=== PATIENT | female | born 1960 | race Caucasian/White ===

== ENCOUNTER → 2016-05-12 | Outpatient (CLI) | payer MEDICARE, MEDICAID ==
[~2016-05-12] MED LIST: ACHYD1T PO; AMLO10TA PO; BREO ELLIPTA INH; BREO IH; CIPR-226 PO; EST30C VG; HYDR50CA3 PO; LEVO150T6 PO; LOXA25CA2 PO; LVT.15T PO; MPR22TI NS; MULT-874 PO; NAPR-689 PO; PRAV20TA PO; SERT100T8 PO; SPIR50TA27 PO; SRTR100T PO; TR5C15 TOP; TRAZ150T42 PO; TRIA5PAS10 TOP; ZIPR80CA9 PO; ZPR80C PO
--- NOTE | 2016-05-12 12:41 | Diagnostic Imaging Report ---
PA and lateral views of the chest. INDICATION: COPD. Obesity. Evaluation prior to foot surgery. No prior similar studies are available for comparison. FINDINGS: There is moderate cardiomegaly with no active congestion or edema. Flattening of the diaphragms is suggestive of pulmonary hyperinflation. There are slightly prominent increased densities around the cardiac borders anteriorly probably related to pericardial fat pad with no definite pulmonary consolidation. No significant effusion. No pneumothorax. IMPRESSION: Hyperinflated clear lungs. Cardiomegaly. Dictated by: Dictated on workstation # [id number]
== END ==
LOC: RAD 11:37
PROVIDERS: ATTEND Internal Medicine Critical Care Medicine
DX: J44.9 Chronic obstructive pulmonary disease, unspecified (principal); G47.33 Obstructive sleep apnea (adult) (pediatric); E66.9 Obesity, unspecified; R53.83 Other fatigue
CPT/HCPCS: 71020

== ENCOUNTER → 2016-05-20 | Outpatient (CLI) | payer MEDICARE, MEDICAID | LOC: RT 13:40 | PROVIDERS: ATTEND Internal Medicine Critical Care Medicine | DX: J44.9 Chronic obstructive pulmonary disease, unspecified (principal); G47.33 Obstructive sleep apnea (adult) (pediatric); E66.9 Obesity, unspecified; R53.83 Other fatigue ==

== ENCOUNTER → 2016-05-25 | Outpatient (CLI) | payer MEDICARE, MEDICAID ==
--- NOTE | 2016-05-27 09:13 | ECHOCARDIOGRAPHY REPORT ---
PROCEDURE PHYSICIAN: ANN-MARIE DIMAS DATE OF PROCEDURE: 05/25/2016 TWO DIMENSIONAL ECHOCARDIOGRAM REPORT PRIMARY PHYSICIAN: OTHER PHYSICIAN: REFERRING PHYSICIAN: Glen Sosa ORDERING PHYSICIAN: INDICATION FOR THE PROCEDURE: Chest pain MEASUREMENTS DERIVED VALUES LV DIAMETER (LAX) NORMALS NORMALS Diastolic 4.6 (3.6-5.2) Eject. Fract. 60% (60%+/-6%) Systolic (2.3-3.9) Diastolic Vol. % Shortening (0.22-0.42) Systolic Vol. Aortic Root IVS THICKNESS Diastolic 1.3 (0.6-1.1) LVPW THICKNESS Diastolic 1.3 (0.6-1.1) LA DIAMETER Systolic 3.6 (2.1-3.7) FINDINGS: 1. Technical quality is good. 2. The left ventricle is normal in size with moderate left ventricular hypertrophy noted diffusely. Systolic function appeared to be normal. Estimated ejection fraction 60%. Diastolic dysfunction is suggested by Doppler. 3. The left atrium is normal in size. No clot or thrombus were seen within the left atrium. 4. The right atrium and right ventricle are normal in size with mild right ventricular hypertrophy. No clot or thrombus were seen in the right heart chambers. 5. Mitral valve is normal in morphology with mild mitral regurgitation noted by color Doppler flow. No mitral valve prolapse. No mitral valve stenosis. 6. Aortic valve is trileaflet with normal opening and closing pattern. No significant aortic stenosis or regurgitation was seen. 7. Tricuspid valve is normal in morphology with mild tricuspid regurgitation noted by color Doppler flow. Doppler across tricuspid valve estimated pulmonary artery pressure 21+ right atrial pressure. 8. Pulmonic valve is functioning normally. 9. Small pericardial effusion of no hemodynamic significance was noted. CONCLUSION: 1. Normal left ventricular size and systolic function. Moderate left ventricular hypertrophy. Estimated ejection fraction 60%. 2. Diastolic dysfunction is suggested by Doppler. 3. Mild mitral and tricuspid regurgitation. 4. Estimated pulmonary artery pressure of 30 mmHg. 5. Small pericardial effusion of no hemodynamic significance was noted. Job ID: [id number] Dictated Date: 05/26/2016 17:12:36 Foreign Language Stenographer Date: 05/27/2016 09:08:06 / tobias
== END ==
LOC: CARD 07:30
PROVIDERS: ATTEND Internal Medicine Cardiovascular Disease
DX: I10 Essential (primary) hypertension (principal); G47.33 Obstructive sleep apnea (adult) (pediatric); E66.9 Obesity, unspecified; R07.89 Other chest pain; R06.09 Other forms of dyspnea
CPT/HCPCS: 93306

== ENCOUNTER → 2016-05-27 | Outpatient (CLI) | payer MEDICARE, MEDICAID ==
[~2016-05-27] MED LIST changes: +CATHETER FLUSH 10 ML SYR IV PRN; +REGADENOSON 0.4 MG/5 ML SYR (LEXISCAN) IV ONE
[2016-05-27 08:59] VITALS: BP 131/80
--- NOTE | 2016-05-28 12:07 | STRESS TEST ---
PROCEDURE PHYSICIAN: ANN-MARIE DIMAS LEXISCAN MYOVIEW STRESS TEST REPORT DATE OF PROCEDURE: 05/27/2016 REFERRING PHYSICIAN: [facility] Dr. Sevilla INDICATION: Coronary artery disease, hypertension. Baseline heart rate is 85, baseline blood pressure: 139/78. Baseline EKG: Sinus rhythm with no ischemic changes. SUMMARY: The patient was injected with 10.93 mCi of technetium 99 Myoview and the resting images were obtained. Then the patient received 0.4 mg of Lexiscan followed by 31.9 mCi of technetium 99 Myoview throughout the test there were no EKG changes. The resting and stress images were reviewed and compared in the short axis, horizontal long axis, and vertical long axis views. Review of the images showed breast attenuation with good radiotracer uptake. No significant ischemia or infarction on SPECT images. SSS is 3, SDS 3, TID value 1.02. On the gated images, the left ventricle appeared to be normal size with normal contractility. Calculated ejection fraction 68%. CONCLUSION: 1. The patient tolerated Lexiscan well. 2. Breast attenuation with no significant ischemia or infarction on SPECT images. 3. Normal left ventricular size with normal contractility. Calculated ejection fraction 68%. Job ID: [id number] Dictated Date: 05/28/2016 08:38:00 Video Game Engineer Date: 05/28/2016 12:02:21 / tobias
== END ==
LOC: CARD 07:39
PROVIDERS: ATTEND Family Medicine
DX: Z01.810 Encounter for preprocedural cardiovascular examination (principal)
CPT/HCPCS: 78452; 93017

== ENCOUNTER → 2017-05-20 | Outpatient (CLI) | payer MEDICARE, MEDICAID ==
[~2017-05-20] MED LIST changes: -CATHETER FLUSH 10 ML SYR IV PRN; -REGADENOSON 0.4 MG/5 ML SYR (LEXISCAN) IV ONE
== END ==
LOC: CARD 10:55
PROVIDERS: ATTEND Internal Medicine Cardiovascular Disease
DX: R07.89 Other chest pain (principal); R60.9 Edema, unspecified; I10 Essential (primary) hypertension; G47.33 Obstructive sleep apnea (adult) (pediatric); E13.9 Other specified diabetes mellitus without complications
CPT/HCPCS: 93306

== ENCOUNTER → 2017-12-24 | Outpatient (CLI) | payer MEDICARE, MEDICAID ==
--- NOTE | 2017-12-24 11:55 | Diagnostic Imaging Report ---
Indication: Screening. The current study was also evaluated with a Computer Aided Detection (CAD) system. 3-D tomosynthesis was also performed and reviewed. Comparison made with prior examination of 02/19/2015. Findings: There are scattered fibroglandular densities bilaterally. There are multiple small lymph nodes in the axilla bilaterally. There are a few benign type calcifications. There is no new dominant mass, spiculated lesion or suspicious calcification identified. Skin, nipples and axilla are unremarkable. Impression: Category 2 benign. Dictated by: Dictated on workstation # [id number]
== END ==
LOC: RAD 08:26
PROVIDERS: ATTEND Nurse Practitioner Family
DX: Z12.31 Encounter for screening mammogram for malignant neoplasm of breast (principal)
CPT/HCPCS: 77067

== ENCOUNTER → 2018-05-07 | Outpatient (CLI) | payer MEDICARE, MEDICAID ==
[2018-05-07 13:29] LABS: ALANINE AMINOTRANSFERASE 18 U/L (0-55); ALBUMIN 4.4 GM/DL (3.2-4.5); ALKALINE PHOSPHATASE 66 U/L (40-136); BILIRUBIN,TOTAL 0.5 MG/DL (0.1-1.0); BUN/CREATININE RATIO 21; CALCIUM 9.3 MG/DL (8.5-10.1); CARBON DIOXIDE 21 MMOL/L (21-32); CHLORIDE 104 MMOL/L (98-107); CHOLESTEROL 209 MG/DL (< 200); CREATININE SERUM 0.76 MG/DL (0.60-1.30); GFR ESTIMATED > 60; GLUCOSE 108 MG/DL (70-105); HDL CHOLESTEROL 35 MG/DL (40-60); POTASSIUM 4.2 MMOL/L (3.6-5.0); SODIUM 137 MMOL/L (135-145); TOTAL PROTEIN 7.3 GM/DL (6.4-8.2); TRIGLYCERIDES 308 MG/DL (<150); VLDL CHOLESTEROL 62 MG/DL (5-40)
== END ==
LOC: LAB 12:44
PROVIDERS: ATTEND Physician Assistant
DX: E78.2 Mixed hyperlipidemia (principal); R07.89 Other chest pain; I10 Essential (primary) hypertension; G47.33 Obstructive sleep apnea (adult) (pediatric)
CPT/HCPCS: 36415; 80053; 80061

== ENCOUNTER 2018-09-02 12:55 | Inpatient (IN) | payer MEDICARE, MEDICAID ==
[~2018-09-02] VITALS: Ht 149.9 cm; Wt 89.8 kg
--- OUTSIDE RECORDS SUMMARY | 2018-09-02 13:01 | XMS REPORT ---
Author Author Migration, Doctor Organization [facility] Address Unknown Phone Unavailable Care Team Providers Care Motor Racer Name Role Phone Migration, Doctor Unavailable Unavailable PROBLEMS Type Condition ICD9-CM Code NUO20-BA Code Onset Dates Condition Status SNOMED Code Problem History of lupus Z87.39 Active 798273853 Problem OAB (overactive bladder) N32.81 Active 317244084 Problem Chronic pain syndrome G89.4 Active 027572779 Problem Type 2 diabetes mellitus without complication, without long-term current use of insulin E11.9 Active 593415779 Problem Depression with anxiety F41.8 Active 563108191 Problem Paranoid schizophrenia F20.0 Active 74491828 Problem Essential hypertension I10 Active 43104855 Problem Dyslipidemia E78.5 Active 147708668 Problem Schizoaffective disorder, depressive type F25.1 Active 95365383 Problem Seasonal allergic rhinitis due to other allergic trigger J30.89 Active 822048853 Problem DM neuro manif type II E11.49 Active 81033290 Problem Primary insomnia F51.01 Active 6161277 Problem Other allergic rhinitis J30.89 Active 988257893 Problem Menopausal syndrome (hot flashes) N95.1 Active 175881207 Problem Tobacco abuse Z72.0 Active 668477612 Problem Other seasonal allergic rhinitis J30.2 Active 825294906 Problem Hypothyroidism (acquired) E03.9 Active 922778860 Problem Gastroesophageal reflux disease, esophagitis presence not specified K21.9 Active 489084487 Problem Migraine without aura and without status migrainosus, not intractable G43.009 Active 192144567 Problem Cigarette nicotine dependence without complication F17.210 Active 94029487 Problem Morbid obesity due to excess calories E66.01 Active 585515529 Problem Allergic rhinitis, unspecified seasonality, unspecified trigger J30.9 Active 71405225 Problem Chronic obstructive pulmonary disease, unspecified COPD type J44.9 Active 46052886 Problem Gastroesophageal reflux disease without esophagitis K21.9 Active 789911549 Problem COPD exacerbation J44.1 Active 374058320 Problem Seasonal allergic rhinitis due to pollen J30.1 Active 67896483 Problem Diabetic polyneuropathy associated with type 2 diabetes mellitus E11.42 Active 031531590 Problem Type 2 diabetes mellitus with diabetic neuropathic arthropathy, 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 Active 408285767 ALLERGIES No Information ENCOUNTERS Encounter Location Date Diagnosis [place] [id number] [place] [address] 85274- 9893 Sep, [place] [id number] [place] [address] 83773- 7671 August, [place] [id number] [place] [address] 84422- 3677 Jul, Diabetic polyneuropathy associated with type 2 diabetes mellitus E11.42 ; Paranoid schizophrenia F20.0 ; Preoperative clearance Z01.818 and Morbid obesity E66.01 [place] [id number] [place] [address] 52296- 9548 Jul, Paranoid schizophrenia F20.0 [place] [id number] [place] [address] 02388- 9027 Jul, [place] [id number] [place] [address] 19714- 5766 Jul, [place] [id number] [place] [address] 02576- 8687 Jul, Cigarette nicotine dependence without complication F17.210 [place] [id number] [place] [address] 12971- 7079 Jul, Type 2 diabetes mellitus without complication, without long- term current use of insulin E11.9 and Hypothyroidism (acquired) E03.9 [place] [id number] [place] [address] 92062- 8744 Jul, Encounter for Medicare annual wellness exam Z00.00 ; Morbid obesity due to excess calories E66.01 ; Diabetic polyneuropathy associated with type 2 diabetes mellitus E11.42 ; Chronic obstructive pulmonary disease, unspecified COPD type J44.9 ; Schizoaffective disorder, depressive type F25.1 ; Hypothyroidism (acquired) E03.9 and Morbid obesity E66.01 [facility] [id number] [place] [address] 12632- 1332 28 Jun, 2018 Gastroesophageal reflux disease without esophagitis K21.9 [facility] [id number] [place] [address] 11190- 5805 28 Jun, 2018 Paranoid schizophrenia F20.0 [place] [address] 97738- 9781 27 Jun, 2018 Schizoaffective disorder, depressive type F25.1 [place] [address] 31287- 0526 26 Jun, 2018 [place] [address] 33309- 5408 20 Jun, 2018 Schizoaffective disorder, depressive type F25.1 [place] [address] 14582- 5797 19 Jun, 2018 Cigarette nicotine dependence without complication F17.210 [place] [id number] [place] [address] 44687- 8090 18 Jun, 2018 Type 2 diabetes mellitus without complication, without long- term current use of insulin E11.9 [place] [id number] [place] [address] 97918- 3875 15 Jun, 2018 [place] [id number] [place] [address] 67606- 6739 Jun, [facility] [id number] [place] [address] 17925- 1403 Jun, [place] [id number] [place] [address] 39139- 3729 07 Jun, 2018 [place] [id number] [place] [address] 35100- 6956 Jun, [facility] [id number] [place] [address] 24185- 5949 06 Jun, 2018 Paranoid schizophrenia F20.0 ; Type 2 diabetes mellitus without complication, without long-term current use of insulin E11.9 ; Hypothyroidism (acquired) E03.9 and Morbid obesity E66.01 [facility] [address] 61393- 2000 28 May, 2018 Paranoid schizophrenia F20.0 [facility] [address] 47895- 3798 20 May, 2018 Hypothyroidism (acquired) E03.9 and Dyslipidemia E78.5 [place] [id number] [place] [address] 56243- 3689 19 May, 2018 Cigarette nicotine dependence without complication F17.210 [place] [address] 25824- 6263 18 May, 2018 [place] [address] 87366- 4088 14 May, 2018 Type 2 diabetes mellitus without complication, without long- term current use of insulin E11.9 ; Essential hypertension I10 ; Hypothyroidism (acquired) E03.9 and Dyslipidemia E78.5 [place] [address] 38500- 3405 13 May, 2018 [place] [address] 43466- 3735 08 May, 2018 Schizoaffective disorder, depressive type F25.1 [place] [address] 47801- 5127 May, Paranoid schizophrenia F20.0 [place] [id number] [place] [address] 94092- 4208 07 May, 2018 [facility] [address] [place] [address] 07 May, 2018 [facility] [id number] [place] [address] 97131- 8445 06 May, 2018 [facility] [address] 25899- 7453 06 May, 2018 Type 2 diabetes mellitus without complication, without long- term current use of insulin E11.9 ; Essential hypertension I10 ; Hypothyroidism (acquired) E03.9 and Dyslipidemia E78.5 [facility] [id number] [place] [address] 79135- 4952 May, [facility] [address] 55289- 8791 May, Acute nasopharyngitis J00 [facility] [address] 30080 -4402 May, Allergic rhinitis, unspecified seasonality, unspecified trigger J30.9 [place] [address] 68913- 1356 May, [place] [address] 42916- 4440 Apr, Schizoaffective disorder, depressive type F25.1 [place] [address] 30178- 0602 Apr, [place] [address] 43578- 5492 Apr, Cigarette nicotine dependence without complication F17.210 [place] [address] 04905- 8513 Apr, [place] [address] 54973- 8965 Apr, Cigarette nicotine dependence without complication F17.210 [place] [address] 00810- 9543 Apr, [place] [address] 73322- 1451 Apr, Migraine without aura and without status migrainosus, not intractable G43.009 [place] [address] 13437- 3258 Apr, Migraine without aura and without status migrainosus, not intractable G43.009 [place] [address] 06841- 6148 Mar, Schizoaffective disorder, depressive type F25.1 ; BMI 45.0- 49.9, adult Z68.42 and BMI 40.0-44.9, adult Z68.41 [place] [address] 31636- 1386 Mar, Primary insomnia F51.01 [place] [address] 73897- 2611 Mar, [place] [address] 30325- 7472 Feb, Primary insomnia F51.01 [place] [address] 61906- 6691 Feb, [place] [address] 40813- 2505 Jan, Schizoaffective disorder, depressive type F25.1 and BMI 45.0 -49.9, adult Z68.42 [place] [id number] [place] [address] 44544- 3138 Jan, [place] [id number] [place] [address] 49992- 8228 Jan, Type 2 diabetes mellitus with diabetic neuropathic arthropathy, 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 ; Menopausal syndrome (hot flashes) N95.1 and BMI 40.0-44.9, adult Z68.41 [place] [address] 87621- 0981 Jan, Paranoid schizophrenia F20.0 [place] [id number] [place] [address] 96315- 6188 Jan, [place] [address] 16913- 5649 Jan, Schizoaffective disorder, depressive type F25.1 [place] [address] 73575- 2523 Jan, [place] [id number] [place] [address] 73325- 5760 Jan, Chronic obstructive pulmonary disease, unspecified COPD type J44.9 ; BMI 45.0-49.9, adult Z68.42 ; Type 2 diabetes mellitus without complication, without long-term current use of insulin E11.9 ; Hypothyroidism ( acquired) E03.9 ; Encounter for immunization Z23 ; Gastroesophageal reflux disease without esophagitis K21.9 ; Primary insomnia F51.01 and Acute nasopharyngitis J00 [place] [id number] [place] [address] 48473- 8753 27 Dec, 2017 [place] [address] 50343- 3688 21 Dec, 2017 Schizoaffective disorder, depressive type F25.1 and BMI 45.0 -49.9, adult Z68.42 [place] [address] 86695- 6655 21 Dec, 2017 [place] [id number] [place] [address] 72012- 2562 18 Dec, 2017 [place] [id number] [place] [address] 86409- 1215 Dec, Acute non-recurrent frontal sinusitis J01.10 [place] [id number] [place] [address] 83966- 8390 18 Dec, 2017 Acute non-recurrent frontal sinusitis J01.10 ; Weakness of left leg R29.898 ; At high risk for falls Z91.81 and BMI 45.0-49.9, adult Z68.42 [place] [id number] [place] [address] 72199- 0989 17 Dec, 2017 [place] [address] [place] [address]- 7814 17 Dec, 2017 [facility] [id number] [place] [address] 55580- 1706 Dec, Schizoaffective disorder, depressive type F25.1 [facility] [id number] [place] [address] 45032 -1053 Dec, Acute nasopharyngitis J00 [facility] [id number] [place] [address] 81985- 1547 Dec, Schizoaffective disorder, depressive type F25.1 [facility] [id number] [place] [address] 08636- 1548 Dec, [facility] [id number] [place] [address] 33896- 2425 Nov, Schizoaffective disorder, depressive type F25.1 and BMI 45.0 -49.9, adult Z68.42 [facility] [id number] [place] [address] 11342- 5077 Nov, [facility] [id number] [place] [address] 54974- 3174 Nov, [facility] [id number] [place] [address] 10480- 6992 Nov, Schizoaffective disorder, depressive type F25.1 [facility] [id number] [place] [address] 29192- 8755 Nov, Well woman exam Z01.419 ; BMI 45.0-49.9, adult Z68.42 ; Screening breast examination Z12.31 and Dietary counseling and surveillance Z71.3 [facility] [id number] [place] [address] 00902- 5175 Nov, Paranoid schizophrenia F20.0 [facility] [id number] [place] [address] 80792- 3698 Nov, Gastroesophageal reflux disease, esophagitis presence not specified K21.9 [place] [address] [address]- 5152 Oct, Paranoid schizophrenia F20.[address] [facility] [id number] [place] [address] Oct Chronic pain syndrome G89.4 and Schizoaffective disorder, depressive type F25.1 [place] [address] [address]- 7360 Oct, Chronic pain syndrome G89.4 and Schizoaffective disorder, depressive type F25.1 [place] [address] [address]- 9518 Oct, Type 2 diabetes mellitus without complication, without long- term current use of insulin E11.9 [place] [address] [address]- 2915 Oct, Essential hypertension I10 and DM neuro manif type II E11.49 [place] [address] [address]- 1648 Oct, [place] [address] [place] [address] 00399- 8174 Oct, Schizoaffective disorder, depressive type F25.1 and BMI 45.0 -49.9, adult Z68.42 [place] [address] [address]- 8703 Oct, [place] [address] [place] [address] 23269- 9034 Oct, Paranoid schizophrenia F20.0 [place] [address] [place] [address] 20216- 4282 Oct, Type 2 diabetes mellitus with diabetic neuropathic arthropathy, 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 ; Essential hypertension I10 ; Hypothyroidism (acquired) E03.9 ; Chronic obstructive pulmonary disease, unspecified COPD type J44.9 and Diabetic polyneuropathy associated with type 2 diabetes mellitus E11.42 [place] [id number] [place] [address] 48976- 5249 Sep, Paranoid schizophrenia F20.0 [facility] [id number] [place] [address] 39182- 3630 Sep, Paranoid schizophrenia F20.0 and BMI 45.0-49.9, adult Z68.42 [facility] [id number] [place] [address] 91621- 3257 Sep, Schizoaffective disorder, depressive type F25.1 [facility] [id number] [place] [address] 64402- 1174 Sep, [facility] [id number] [place] [address] 04352- 4391 Sep, Paranoid schizophrenia F20.0 [facility] [id number] [place] [address] 51532- 2386 Sep, [facility] [id number] [place] [address] 68129- 8531 Sep, Hypothyroidism (acquired) E03.9 [facility] [id number] [place] [address] 09539- 2732 Sep, [facility] [id number] [place] [address] 77153- 2299 August, Schizoaffective disorder, depressive type F25.1 [facility] [id number] [place] [address] 37275- 2005 August, [facility] [id number] [place] [address] 05405- 9113 August, [facility] [id number] [place] [address] 45243- 1450 August, [facility] [id number] [place] [address] 07880- 9306 August, Paranoid schizophrenia F20.0 [facility] [address] [place] [address] 31660- 5091 August, History of lupus Z87.39 and Chronic pain syndrome G89.4 [place] [address] 16895- 2812 August, [facility] [address] 87800 -0903 August, Seasonal allergic rhinitis, unspecified trigger J30.2 and BMI 45.0-49.9, adult Z68.42 [place] [address] 36750- 5234 Jul, Schizoaffective disorder, depressive type F25.[address] 31766- 5813 Jul, [place] [address] 65183- 6604 Jul, Hypothyroidism (acquired) E03.9 [place] [address] 62372- 7252 Jul, Chronic obstructive pulmonary disease, unspecified COPD type J44.9 and Type 2 diabetes mellitus without complication, without long-term current use of insulin E11.9 [place] [id number] [place] [address] 03928- 8640 Jul, Paranoid schizophrenia F20.[address] 38176- 6990 Jun, Hypothyroidism (acquired) E03.9 and Seasonal allergic rhinitis due to pollen J30.1 [facility] [id number] [place] [address] 19833 -9291 Jun, Shortness of breath at rest R06.02 ; COPD exacerbation J44.1 and BMI 45.0-49.9, adult Z68.42 [place] [address] 13318- 0446 Jun, [place] [address] [place] [address]- 7139 Jun, Paranoid schizophrenia F20.0 ; Depression with anxiety F41.8 and BMI 45.0-49.9, adult Z68.42 [facility] [id number] [place] [address] 51585- 0110 Jun, Schizoaffective disorder, depressive type F25.1 [facility] [address] [id number] Jun, Dental caries K02.9 [facility] [address] 44662- 7649 Jun, Paranoid schizophrenia F20.0 [facility] [address] 14205- 1895 May, Migraine without aura and without status migrainosus, not intractable G43.009 ; DM neuro manif type II E11.49 and Type 2 diabetes mellitus without complication, without long-term current use of insulin E11.9 [facility] [id number] [place] [address] 33963- 7866 May, Migraine without aura and without status migrainosus, not intractable G43.009 [facility] [id number] [place] [address] 89846- 3890 May, Depression with anxiety F41.8 [facility] [id number] [place] [address] [id number] May, [facility] [id number] [place] [address] 56174- 8737 May, [facility] [address] 06172- 9610 May, [facility] [address] 47828- 2614 May, Hypothyroidism (acquired) E03.9 [facility] [address] 35812- 4602 May, Paranoid schizophrenia F20.0 [facility] [id number] [place] [address] 73015- 2781 08 May, 2017 Type 2 diabetes mellitus without complication, without long- term current use of insulin E11.9 ; DM neuro manif type II E11.49 ; Essential hypertension I10 ; Hypothyroidism (acquired) E03.9 ; History of lupus Z87.39 ; Chronic obstructive pulmonary disease, unspecified COPD type J44.9 ; Dyslipidemia E78.5 ; Chronic pain syndrome G89.4 ; Migraine without aura and without status migrainosus, not intractable G43.009 ; Depression with anxiety F41.8 ; Gastroesophageal reflux disease, esophagitis presence not specified K21.9 ; BMI 45.0-49.9, adult Z68.42 ; OAB (overactive bladder) N32.81 and Controlled substance agreement signed Z79.899 [place] [address] 22754- 6817 May, Controlled substance agreement signed Z79.899 [place] [address] 10015- 4027 Apr, [facility] [address] [id number] Apr, Dental examination Z01.20 [place] [address] 81475- 8485 Apr, Paranoid schizophrenia F20.0 [place] [address] 58072- 2155 Apr, Hypertension, unspecified type I10 [facility] [address] 72139- 1080 Apr, Paranoid schizophrenia F20.0 [facility] [address] 43224- 9384 Apr, [place] [address] 47312- 5842 Apr, Tobacco abuse Z72.0 [facility] [address] [place] [address] 49592- 5133 Apr, [facility] [id number] [place] [address] 25028- 7681 Mar, [facility] [id number] [place] [address] 47570- 8999 Mar, Paranoid schizophrenia F20.0 and BMI 45.0-49.9, adult Z68.42 [facility] [id number] [place] [address] 41922- 3360 15 Mar, 2017 Schizoaffective disorder, depressive type F25.1 [facility] [id number] [place] [address] 83422- 7856 Mar, [facility] [id number] [place] [address] 33225- 2453 Mar, Hypothyroidism, unspecified type E03.9 [facility] [id number] [place] [address] 03375- 7877 Mar, Schizoaffective disorder, depressive type F25.1 [facility] [id number] [place] [address] 37570 -3443 Feb, Gastroenteritis K52.9 and BMI 45.0-49.9, adult Z68.42 [facility] [id number] [place] [address] 01665- 0044 Feb, [facility] [id number] [place] [address] 84886- 9475 Feb, [facility] [id number] [place] [address] 90579- 8791 Feb, [facility] [id number] [place] [address] 98797- 2620 16 Feb, 2017 [facility] [id number] [place] [address] 40464- 8943 Feb, Paranoid schizophrenia F20.0 [place] [id number] [place] [address] 72665- 1369 Feb, Gastroesophageal reflux disease without esophagitis K21.9 ; Other seasonal allergic rhinitis J30.2 ; Other allergic rhinitis J30.89 ; Tobacco abuse Z72.0 and BMI 40.0-44.9, adult Z68.41 [place] [address] 40679- 4398 Feb, Onychomycosis B35.1 ; Callus of foot L84 and DM neuro manif type II E11.49 [place] [address] 58446- 8600 Jan, Chronic allergic rhinitis J30.9 [place] [address] 84660- 7122 16 Jan, 2017 [place] [address] 49892- 3317 Jan, Schizoaffective disorder, depressive type F25.1 [place] [address] 46182- 6937 Jan, [facility] [address] 80010 -2879 Jan, Sore throat J02.9 and Seasonal allergic rhinitis due to other allergic trigger J30.89 [place] [address] 93386- 8783 Jan, [place] [address] 41553- 4699 Jan, [facility] [address] 57183 -4846 Jan, Chronic allergic rhinitis J30.9 [place] [id number] [place] [address] 68681- 0379 Dec, Paranoid schizophrenia F20.0 ; Primary insomnia F51.01 and Schizoaffective disorder, depressive type F25.1 [place] [id number] [place] [address] 18493- 4409 21 Dec, 2016 Chronic pain syndrome G89.4 ; Cervicalgia of occipito- atlanto-axial region M54.2 ; Menopausal syndrome (hot flashes) N95.1 and Encounter for immunization Z23 [facility] [id number] [place] [address] 40905- 2551 14 Dec, 2016 [facility] [address] 99628- 9166 Dec, [place] [id number] [place] [address] 10079- 5935 Dec, Paranoid schizophrenia F20.0 [place] [id number] [place] [address] 80522- 4911 Dec, Schizoaffective disorder, depressive type F25.1 [place] [address] 57189- 8294 Nov, Hypothyroidism, unspecified type E03.9 [facility] [id number] [place] [address] 55290 -0112 Nov, Acute seasonal allergic rhinitis due to other allergen J30.89 [place] [id number] [place] [address] 20633- 9655 Nov, [place] [id number] [place] [address] 26993- 7335 Nov, Hypothyroidism, unspecified type E03.9 and Other elevated white blood cell (WBC) count D72.828 [place] [id number] [place] [address] 05709- 9882 Nov, Schizoaffective disorder, depressive type F25.1 [facility] [id number] [place] [address] 38411- 7736 Nov, Paranoid schizophrenia F20.0 [facility] [address] 97104- 5933 Nov, Type 2 diabetes mellitus without complication, without long- term current use of insulin E11.9 ; Morbid obesity due to excess calories E66.01 and Chronic pain syndrome G89.4 [place] [id number] [place] [address] 80452- 1395 Oct, Paranoid schizophrenia F20.0 [place] [id number] [place] [address] 03347- 4213 Oct, [place] [id number] [place] [address] 21378- 0204 Oct, Schizoaffective disorder, depressive type F25.1 [place] [id number] [place] [address] 87091- 3604 Oct, Hypothyroidism, unspecified type E03.9 and Other elevated white blood cell (WBC) count D72.828 [place] [id number] [place] [address] 43467- 0406 Oct, Morbid obesity due to excess calories E66.01 ; Chronic obstructive pulmonary disease, unspecified COPD type J44.9 ; History of lupus Z87.39 ; Hypothyroidism, unspecified type E03.9 ; Gastroesophageal reflux disease without esophagitis K21.9 ; Primary insomnia F51.01 and Chronic pain syndrome G89.4 [place] [id number] [place] [address] 75411- 6083 Sep, [place] [id number] [place] [address] 93058- 9398 Sep, [place] [id number] [place] [address] 50983- 0749 Sep, [place] [id number] [place] [address] 41749- 3136 Sep, Paranoid schizophrenia F20.0 [place] [id number] [place] [address] 18252- 9242 Sep, [place] [id number] [place] [address] 70834- 3936 Sep, Paranoid schizophrenia F20.0 [facility] [id number] [place] [address] 95047- 6747 Sep, [facility] [id number] [place] [address] 74265- 9797 August, Paranoid schizophrenia F20.0 [facility] [id number] [place] [address] 67160- 6525 Jul, [facility] [id number] [place] [address] 20162- 3368 Jul, Type 2 diabetes mellitus without complication, without long- term current use of insulin E11.9 ; Morbid obesity due to excess calories E66.01 ; Depression with anxiety F41.8 ; Hypothyroidism, unspecified type E03.9 ; Seasonal allergic rhinitis due to other allergic trigger J30.89 ; Pain, dental K08.89 and Gastroesophageal reflux disease without esophagitis K21.9 [facility] [address] [place] [id number] [place] [address] [id number] Jul, Dental examination Z01.20 [place] [id number] [place] [address] 14268- 4403 07 Jul, 2016 Paranoid schizophrenia F20.0 [place] [id number] [place] [address] 97649- 1434 13 Jun, 2016 Paranoid schizophrenia F20.0 and Depression with anxiety F41.8 [place] [address] [place] [address] 72560- 2722 Jun, Paranoid schizophrenia F20.0 and Depression with anxiety F41.8 [place] [address] [place] [address] 10006- 3770 Jun, [facility] [address] [place] [address] 93166- 5631 Jun, [facility] [address] [place] [address] 85780 -6162 Jun, Seasonal allergic rhinitis due to other allergic trigger J30.89 [facility] [id number] [place] [address] 46217 -3857 25 May, 2016 Sore throat J02.9 ; Other viral agents as the cause of diseases classified elsewhere B97.89 and Acute upper respiratory infection, unspecified J06.9 [place] [id number] [place] [address] 40779- 2560 08 May, 2016 Paranoid schizophrenia F20.0 and Depression with anxiety F41.8 [place] [id number] [place] [address] 52422- 5909 Apr, Other seasonal allergic rhinitis J30.2 [place] [id number] [place] [address] 74713- 3466 Apr, Paranoid schizophrenia F20.0 and Depression with anxiety F41.8 [facility] [id number] [place] [address] 06286 -2230 Apr, Bronchitis J40 and Sore throat J02.9 [place] [id number] [place] [address] 95576- 6234 Apr, Type 2 diabetes mellitus without complication, without long- term current use of insulin E11.9 [facility] [place] [id number] [place] [address] 84865 -6932 Apr, Bronchitis J40 [place] [id number] [place] [address] 02908- 7506 Apr, [place] [id number] [place] [address] 27558- 6572 Apr, [place] [address] 63777- 4461 Mar, Type 2 diabetes mellitus without complication, without long- term current use of insulin E11.9 ; Paranoid schizophrenia F20.0 ; Depression with anxiety F41.8 ; ARIAS on CPAP G47.33 ; Gastroesophageal reflux disease without esophagitis K21.9 ; Acquired hypothyroidism E03.9 ; Chronic obstructive pulmonary disease, unspecified COPD type J44.9 ; OAB (overactive bladder) N32.81 ; Chronic pain syndrome G89.4 ; Peripheral edema R60.9 and Other seasonal allergic rhinitis J30.2 [place] [id number] [place] [address] 52699- 1990 Mar, Paranoid schizophrenia F20.0 and Depression with anxiety F41.8 [place] [address] 90307- 2898 Feb, [place] [address] [id number] [place] [address] 03525- 8985 Feb, [place] [address] 74669- 1540 Feb, [place] [address] 52788- 4457 Feb, [place] [address] 24244- 9427 Feb, Type 2 diabetes mellitus without complication, without long- term current use of insulin E11.9 ; ARIAS on CPAP G47.33 and Preoperative evaluation to rule out surgical contraindication Z01.818 [place] [address] [id number] [place] [address] 40117- 0675 Feb, Paranoid schizophrenia F20.0 and Depression with anxiety F41.8 [place] [id number] [place] [address] 95450- 2337 Jan, [place] [address] [id number] [place] [address] 25176- 0871 Jan, Paranoid schizophrenia F20.0 and Depression with anxiety F41.8 [place] [address] [id number] [place] [address] 39012- 7532 Jan, [place] [address] [id number] [place] [address] 32328- 9718 Jan, Muscle strain T14.8 [place] [address] [address]- 8495 Jan, Paranoid schizophrenia F20.0 [facility] [address] [address]- 4037 Jan, [facility] [address] [place] [address]- 5539 Jan, Paranoid schizophrenia F20.0 and Depression with anxiety F41.8 [facility] [address] [address]- 4086 Jan, [facility] [address] [place] [address] 57370- 6132 Jan, [facility] [address] [address]- 1888 28 Dec, 2015 [facility] [id number] [address]- 6968 23 Dec, 2015 Paranoid schizophrenia F20.0 [facility] [address] [place] [address]- 5933 16 Dec, 2015 Paranoid schizophrenia F20.0 and Depression with anxiety F41.8 [facility] [address] [address]- 4213 Nov, [facility] [address] [place] [address]- 1052 Nov, Paranoid schizophrenia F20.0 [facility] [address] [place] [address]- 5136 Nov, Paranoid schizophrenia F20.0 and Depression with anxiety F41.8 [facility] [address] [address]- 6009 05 Nov, 2015 Type 2 diabetes mellitus without complication, without long- term current use of insulin E11.9 ; Paranoid schizophrenia F20.0 ; Chronic obstructive pulmonary disease, unspecified COPD type J44.9 ; Morbid obesity due to excess calories E66.01 and Parkinsonian tremor G20 [place] [id number] [place] [address] 38220- 2687 Nov, [place] [id number] [place] [address] 40067- 6348 Oct, Paranoid schizophrenia F20.0 [place] [id number] [place] [address] 36731- 0295 Oct, Paranoid schizophrenia F20.0 [place] [id number] [place] [address] 57477- 1737 Oct, Paranoid schizophrenia F20.0 and Depression with anxiety F41.8 [place] [id number] [place] [address] 48804- 1104 Oct, [place] [id number] [place] [address] 93158- 5821 Oct, Paranoid schizophrenia F20.0 and Depression with anxiety F41.8 [place] [id number] [place] [address] 23720- 8331 Oct, Nasal sore J34.89 [place] [id number] [place] [address] 13470- 8662 Oct, Type 2 diabetes mellitus without complication, without long- term current use of insulin E11.9 ; Depression with anxiety F41.8 ; Hypothyroidism, unspecified type E03.9 and History of lupus Z87.39 [place] [id number] [place] [address] 50159- 0342 Oct, [place] [id number] [place] [address] 48460- 8209 Oct, Type 2 diabetes mellitus without complication, without long- term current use of insulin E11.9 ; Paranoid schizophrenia F20.0 ; Morbid obesity due to excess calories E66.01 ; Chronic obstructive pulmonary disease, unspecified COPD type J44.9 ; Other seasonal allergic rhinitis J30.2 ; Gastroesophageal reflux disease, esophagitis presence not specified K21.9 ; Chronic pain syndrome G89.4 ; Depression with anxiety F41.8 ; OAB (overactive bladder) N32.81 ; Hypothyroidism, unspecified type E03.9 ; Parkinsonian tremor G20 ; Peripheral edema R60.9 and History of lupus Z87.39 [facility] [address], [place] [address]- 1690 Feb, [facility] [id number] [place] [address] 30339- 5197 Jan, [facility] [id number] [place] [address] 42963- 3378 Jan, [facility] [id number] [place] [address] 34555- 3459 Jan, [facility] [id number] [place] [address] 13577- 3031 Dec, [facility] [id number] [place] [address] 21440- 6733 Nov, [facility] [id number] [place] [address] 20151- 6622 Nov, [facility] [id number] [place] [address] 12555- 3881 Oct, [facility] [id number] [place] [address] 00221- 3390 Oct, [facility] [id number] [place] [address] 06610- 3422 Oct, [facility] [id number] [place] [address] 88997- 5089 Sep, Allergic rhinitis 477.9 [facility] [id number] [place] [address] 37495- 9496 Sep, Rhinitis, allergic 477.9 [facility] [id number] [place] [address] 31980- 9947 10 Sep, 2014 Rhinitis, allergic 477.9 [facility] [id number] [place] [address]- 6573 Sep, [facility] [place] [facility] [address] [id number] [place] [address]- 9382 August, [facility] [place] [facility] [address] [id number] [place] [address]- 2585 August, [facility] [place] [facility] [address] [id number] [place] [address]- 9593 August, [facility] [place] [facility] [address] [id number] [place] [address]- 4566 Jul, [facility] [place] [facility] [address] [id number] [place] [address]- 3955 Jul, [facility] [place] [facility] [address] [id number] [place] [address]- 1359 Jul, [facility] [place] [facility] [address] [id number] [place] [address]- 0964 Jun, [facility] [place] [facility] [address] [id number] [place] [address]- 8210 Jun, [facility] [place] [facility] [address] [id number] [place] [address]- 2757 Jun, [facility] [place] [facility] [address] [id number] [place] [address]- 9867 Jun, [facility] [place] [facility] [address] [id number] [place] [address]- 2696 Jun, [facility] [place] [facility] [address] [id number] [place] [address]- 7609 Jun, [facility] [place] [facility] [address] [id number] [place] [address]- 0465 Jun, [facility] [place] [facility] [address] [id number] [place] [address]- 9826 Jun, [facility] [place] [facility] [address] [id number] [place] [address]- 2711 May, [facility] [place] [facility] [address] [id number] [place] [address]- 8204 17 May, 2014 [facility] [place] [facility] [address] [id number] [place] [address]- 5416 May, 2014 [facility] [place] [facility] [address] [id number] [place] [address]- 1686 May, 2014 [facility] [place] [facility] [address] [id number] [place] [address]- 8175 Apr, [facility] [place] [facility] [address] [id number] [place] [address]- 4490 Mar, [facility] [place] [facility] [address] [id number] [place] [address]- 0137 Mar, [facility] [place] [facility] [address] [id number] [place] [address]- 6509 Mar, [facility] [place] [facility] [address] [id number] [place] [address]- 6104 Mar, [facility] [place] [facility] [address] [id number] [place] [address]- 4076 Mar, [facility] [place] [facility] [address] [id number] [place] [address]- 6075 Mar, [facility] [place] [facility] [address] [id number] [place] [address]- 7405 Mar, [facility] [place] [facility] [address] [id number] [place] [address]- 3803 Mar, [facility] [place] [facility] [address] [id number] [place] [address]- 7567 Mar, [facility] [place] [facility] [address] [id number] [place] [address]- 8240 Feb, [facility] [place] [facility] [address] [id number] [place] [address]- 7453 Feb, [facility] [place] [facility] [address] [id number], [place] [address]- 6006 17 Feb, 2014 [facility] [place] [facility] [address] [id number] [place] [address]- 9336 17 Feb, 2014 [facility] [place] [facility] [address] [id number] [place] [address]- 1281 14 Feb, 2014 [facility] [place] [facility] [address] [id number] [place] [address]- 2159 14 Feb, 2014 [facility] [place] [facility] [address] [id number] [place] [address]- 8627 Feb, [facility] [place] [facility] [address] [id number] [place] [address]- 7418 Feb, [facility] [place] [facility] [address] [id number] [place] [address]- 3529 23 Jan, 2014 [facility] [place] [facility] [address] [id number] [place] [address]- 9340 23 Jan, 2014 [facility] [place] [facility] [address] [id number] [place] [address]- 0164 16 Jan, 2014 [facility] [place] [facility] [address] [id number] [place] [address]- 3198 16 Jan, 2014 [facility] [place] [facility] [address] [id number] [place] [address]- 8393 15 Jan, 2014 [facility] [place] [facility] [address] [id number], [place] [address]- 3143 15 Jan, 2014 [facility] [place] [facility] [address] [id number], [place] [address]- 0712 14 Jan, 2014 [facility] [place] [facility] [address] [id number] [place] [address]- 7444 14 Jan, 2014 [facility] [place] [facility] [address] [id number] [place] [address]- 8073 14 Jan, 2014 [facility] [place] [facility] [address] [id number] [place] [address]- 0637 14 Jan, 2014 [facility] [place] [facility] [address] [id number] [place] [address]- 8525 18 Dec, 2013 [facility] [place] [facility] [address] [id number] [place] [address]- 6304 18 Dec, 2013 [facility] [place] [facility] [address] [id number] [place] [address]- 0016 Dec, [facility] [place] [facility] [address] [id number] [place] [address]- 5043 Dec, [facility] [place] [facility] [address] [id number] [place] [address]- 6639 Nov, [facility] [place] [facility] [address] [id number] [place] [address]- 9370 Nov, [facility] [place] [facility] [address] [id number] [place] [address]- 3121 Nov, [facility] [place] [facility] [address] [id number] [place] [address]- 4486 Nov, [facility] [place] [facility] [address] [id number] [place] [address]- 2816 Nov, [facility] [place] [facility] [address] [id number] [place] [address]- 6773 Oct, [facility] [place] [facility] [address] [id number] [place] [address]- 0306 Oct, [facility] [place] [facility] [address] [id number] [place] [address]- 1248 Oct, [facility] [place] [facility] [address] [id number] [place] [address]- 0560 Oct, [facility] [place] [facility] [address] [id number] [place] [address]- 9519 Sep, [facility] [place] [facility] [address] [id number] [place] [address]- 9886 Sep, [facility] [place] [facility] [address] [id number] [place] [address]- 3564 Sep, [facility] [place] [facility] [address] [id number] [place] [address]- 5024 Sep, [facility] [place] [facility] [address] [id number] [place] [address]- 2816 Sep, [facility] [place] [facility] [address] [id number] [place] [address]- 3861 Sep, [facility] [place] [facility] [address] [id number] [place] [address]- 9412 Sep, [facility] [place] [facility] [address] [id number] [place] [address]- 0041 Sep, [facility] [place] [facility] [address] [id number] [place] [address]- 3199 August, [facility] [place] [facility] [address] [id number] [place] [address]- 0424 August, [facility] [place] [facility] [address] [id number] [place] [address]- 0026 August, [facility] [place] [facility] [address] [id number] [place] [address]- 5121 August, [facility] [place] [facility] [address] [id number] [place] [address]- 7998 August, [facility] [place] [facility] [address] [id number] [place] [address]- 6544 August, [facility] [place] [facility] [address] [id number] [place] [address]- 4857 August, [facility] [place] [facility] [address] [id number] [place] [address]- 8423 Jul, [facility] [place] [facility] [address] [id number] [place] [address]- 2599 Jul, [facility] [place] [facility] [address] [id number] [place] [address]- 6079 Jul, [facility] [place] [facility] [address] [id number] [place] [address]- 4470 Jul, [facility] [place] [facility] [address] [id number] [place] [address]- 9402 Jul, [facility] [place] [facility] [address] [id number] [place] [address]- 8416 Jul, [facility] [place] [facility] [address] [id number] [place] [address]- 9666 Jul, [facility] [place] [facility] [address] [id number] [place] [address]- 3772 Jul, [facility] [place] [facility] [address] [id number] [place] [address]- 9021 Jul, [facility] [place] [facility] [address] [id number] [place] [address]- 5334 Jul, [facility] [place] [facility] [address] [id number] [place] [address]- 8853 Jul, [facility] [place] [facility] [address] [id number] [place] [address]- 9463 Jul, [facility] [place] [facility] [address] [id number] [place] [address]- 2544 Jun, [facility] [place] [facility] [address] [id number] [place] [address]- 3795 Jun, [facility] [place] [facility] [address] [id number] [place] [address]- 6354 Jun, [facility] [place] [facility] [address] [id number] [place] [address]- 3927 Jun, [facility] [place] [facility] [address] [id number] [place] [address]- 6403 Jun, [facility] [place] [facility] [address] [id number] [place] [address] May, [facility] [place] [facility] [address] [id number] [place] [address] May, [facility] [place] [facility] [address] [id number] [place] [address] May, 2013 [facility] [place] [facility] [address] [id number] [place] [address] May, [facility] [place] [facility] [address] [id number] [place] [address] May, 2013 [facility] [place] [facility] [address] [id number] [place] [address] May, [facility] [place] [facility] [address] [id number] [place] [address] May, [facility] [place] [facility] [address] [id number] [place] [address] May, [facility] [place] [facility] [address] [facility] [id number] [place] [address] Mar, [facility] [place] [facility] [address] [id number], [place] [address] Mar, [facility] [place] [facility] [address] [facility] [id number] [place] [address] Mar, [facility] [place] [facility] [address] [facility] [id number] [place] [address] Mar, [facility] [place] [facility] [address] [facility] [id number], [place] [address] Mar, [facility] [place] [facility] [address] [id number], [place] [address] Mar, [facility] [place] [facility] [address] [facility] [id number] [place] [address] Feb, [facility] [place] [facility] [address] [id number], [place] [address] Feb, [facility] [place] [facility] [address] [facility] [id number] [place] [address] Jan, [facility] [place] [facility] [address] [id number] [place] [address] Jan, [facility] [place] [facility] [address] [id number] [place] [address] Jan, [facility] [place] [facility] [address] [id number] [place] [address] Jan, [facility] [place] [facility] [address] [id number] [place] [address] Jan, [facility] [place] [facility] [address] [id number] [place] [address] Jan, [facility] [place] [facility] [address] [id number] [place] [address] Jan, [facility] [place] [facility] [address] [id number] [place] [address] Jan, [facility] [place] [facility] [address] [id number] [place] [address] Jan, [facility] [place] [facility] [address] [id number] [place] [address] Jan, [facility] [place] [facility] [address] [id number] [place] [address] Dec, [facility] [place] [facility] [address] [id number] [place] [address] Nov, [facility] [place] [facility] [address] [id number] [place] [address] Nov, [facility] [place] [facility] [address] [id number] [place] [address] Nov, [facility] [place] [facility] [address] [id number] [place] [address] Oct, [facility] [place] [facility] [address] [id number] [place] [address] Oct, [facility] [place] [facility] [address] [id number] [place] [address] August, [facility] [facility] [id number] [place] [address] Apr, [facility] [id number] [place] [address] Apr, [facility] [id number] [place] [address] Feb, [facility] [id number] [place] [address] Feb, [facility] [id number] [place] [address] Dec, [facility] [id number] [place] [address] Dec, [facility] [id number] [address] Oct, [facility] [id number] [place] [address] Oct, [facility] [id number] [place] [address] Oct, [facility] [id number] [place] [address] Jul, IMMUNIZATIONS No Known Immunizations SOCIAL HISTORY Never Assessed REASON FOR VISIT EMR-[facility] PLAN OF CARE VITAL SIGNS MEDICATIONS Unknown Medications RESULTS No Results PROCEDURES No Known procedures INSTRUCTIONS MEDICATIONS ADMINISTERED No Known Medications MEDICAL (GENERAL) HISTORY Type Description Date Medical History Lupus- cutaneous per patient Medical History Schizophrenia Medical History COPD Medical History Hx of Depression Medical History Diabetes Type 2 Medical History 05/2016--ECHO- EF 60% w/ diastolic dysfunction, left ventricular hypertrophy-mild mitral/tric. regurg. est. 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 Byers on November 03 in addition to EGD Hospitalization History several hospitalizations for psychosis/mental illness , [facility]
--- OUTSIDE RECORDS SUMMARY | 2018-09-02 13:02 | XMS REPORT ---
Author Author Migration, Doctor Organization [facility] Address Unknown Phone Unavailable Care Team Providers Care Culinary Instructor Name Role Phone Migration, Doctor Unavailable Unavailable PROBLEMS Type Condition ICD9-CM Code [id number] Code Onset Dates Condition Status SNOMED Code Problem History of lupus Z87.39 Active 600504851 Problem OAB (overactive bladder) N32.81 Active 271920813 Problem Chronic pain syndrome G89.4 Active 276005846 Problem Type 2 diabetes mellitus without complication, without long-term current use of insulin E11.9 Active 930779667 Problem Depression with anxiety F41.8 Active 593188843 Problem Paranoid schizophrenia F20.0 Active 66724505 Problem Essential hypertension I10 Active 99768679 Problem Dyslipidemia E78.5 Active 944864060 Problem Schizoaffective disorder, depressive type F25.1 Active 99200892 Problem Seasonal allergic rhinitis due to other allergic trigger J30.89 Active 060401078 Problem DM neuro manif type II E11.49 Active 67636415 Problem Primary insomnia F51.01 Active 5093957 Problem Other allergic rhinitis J30.89 Active 615510178 Problem Menopausal syndrome (hot flashes) N95.1 Active 436457231 Problem Tobacco abuse Z72.0 Active 025915260 Problem Other seasonal allergic rhinitis J30.2 Active 017912248 Problem Hypothyroidism (acquired) E03.9 Active 087656783 Problem Gastroesophageal reflux disease, esophagitis presence not specified K21.9 Active 474799226 Problem Migraine without aura and without status migrainosus, not intractable G43.009 Active 182091302 Problem Cigarette nicotine dependence without complication F17.210 Active 98108869 Problem Morbid obesity due to excess calories E66.01 Active 870052694 Problem Allergic rhinitis, unspecified seasonality, unspecified trigger J30.9 Active 76151292 Problem Chronic obstructive pulmonary disease, unspecified COPD type J44.9 Active 67460063 Problem Gastroesophageal reflux disease without esophagitis K21.9 Active 516711708 Problem COPD exacerbation J44.1 Active 451388546 Problem Seasonal allergic rhinitis due to pollen J30.1 Active 59880009 Problem Diabetic polyneuropathy associated with type 2 diabetes mellitus E11.42 Active 975028113 Problem Type 2 diabetes mellitus with diabetic neuropathic arthropathy, 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 Active 476311363 ALLERGIES No Information ENCOUNTERS Encounter Location Date Diagnosis [place] [id number] [place] [address] 50427- 3458 Sep, [place] [address] [place] [id number] [place] [address] 99022- 3994 Jul, [place] [address] 62758- 4313 Jul, Cigarette nicotine dependence without complication F17.210 [place] [address] [place] [id number] [place] [address] 31687- 6273 Jul, Type 2 diabetes mellitus without complication, without long- term current use of insulin E11.9 and Hypothyroidism (acquired) E03.9 [place] [address] [place] [id number] [place] [address] 21568- 2770 Jul, Encounter for Medicare annual wellness exam Z00.00 ; Morbid obesity due to excess calories E66.01 ; Diabetic polyneuropathy associated with type 2 diabetes mellitus E11.42 ; Chronic obstructive pulmonary disease, unspecified COPD type J44.9 ; Schizoaffective disorder, depressive type F25.1 ; Hypothyroidism (acquired) E03.9 and Morbid obesity E66.01 [place] [address] [place] [id number] [place] [address] 84141- 7230 Jun, Gastroesophageal reflux disease without esophagitis K21.9 [place] [address] [place] [id number] [place] [address] 31682- 7055 Jun, Paranoid schizophrenia F20.0 [place] [id number] [place] [address] 29737- 2288 Jun, Schizoaffective disorder, depressive type F25.1 [place] [address] [place] [id number] [place] [address] 06689- 7585 Jun, [place] [address] [address] 1371 Jun, Schizoaffective disorder, depressive type F25.1 [facility] [address] [place] [id number] [place] [address] 10620- 3239 Jun, Cigarette nicotine dependence without complication F17.210 [facility] [address] [place] [address] 60052- 4483 18 Jun, 2018 Type 2 diabetes mellitus without complication, without long- term current use of insulin E11.9 [facility] [address] [address] 0055 15 Jun, 2018 [facility] [address] [place] [id number] [place] [address] 04890- 5597 Jun, [facility] [address] [place] [id number] [place] [address] 58833- 4642 Jun, [facility] [address] [place] [id number] [place] [address] 47527- 0130 Jun, [facility] [id number] [place] [address] 05881- 0565 Jun, [facility] [id number] [place] [address] 52350- 7562 Jun, Paranoid schizophrenia F20.0 ; Type 2 diabetes mellitus without complication, without long-term current use of insulin E11.9 ; Hypothyroidism (acquired) E03.9 and Morbid obesity E66.01 [facility] [address] [address]- 4597 May, Paranoid schizophrenia F20.0 [facility] [id number] [place] [address] 49712- 8556 May, Hypothyroidism (acquired) E03.9 and Dyslipidemia E78.5 [facility] [address] [address]- 2209 May, Cigarette nicotine dependence without complication F17.210 [facility] [address] [place] [id number] [place] [address] 94916- 8103 18 May, 2018 [facility] [address] 77524- 0223 14 May, 2018 Type 2 diabetes mellitus without complication, without long- term current use of insulin E11.9 ; Essential hypertension I10 ; Hypothyroidism (acquired) E03.9 and Dyslipidemia E78.5 [place] [address] 44722- 9163 May, [place] [address] 86809- 6327 May, Schizoaffective disorder, depressive type F25.1 [place] [address] 80465- 7296 May, Paranoid schizophrenia F20.0 [place] [address] 76508- 3177 May, [facility] [address] [place] [address] May, [place] [address] 89992- 9900 May, [place] [address] 28339- 1603 May, Type 2 diabetes mellitus without complication, without long- term current use of insulin E11.9 ; Essential hypertension I10 ; Hypothyroidism (acquired) E03.9 and Dyslipidemia E78.5 [place] [address] 92256- 6153 May, [facility] [address] 75079- 7988 May, Acute nasopharyngitis J00 [facility] [address] 08157 -3737 May, Allergic rhinitis, unspecified seasonality, unspecified trigger J30.9 [facility] [address] [place] [id number] [place] [address] 46888- 2767 May, [facility] [address] [place] [id number] [place] [address] 86527- 4548 Apr, Schizoaffective disorder, depressive type F25.1 [facility] [address] [place] [id number] [place] [address] 55888- 0342 Apr, [facility] [address] [place] [id number] [place] [address] 31129- 3387 Apr, Cigarette nicotine dependence without complication F17.210 [place] [address] 97496- 9490 Apr, [facility] [address] [place] [id number] [place] [address] 51241- 3510 Apr, Cigarette nicotine dependence without complication F17.210 [facility] [address] [place] [id number] [place] [address] 21887- 3051 Apr, [facility] [address] [place] [id number] [place] [address] 26720- 6604 Apr, Migraine without aura and without status migrainosus, not intractable G43.009 [place] [id number] [place] [address] 24304- 6688 Apr, Migraine without aura and without status migrainosus, not intractable G43.009 [facility] [address] [place] [id number] [place] [address] 38749- 9808 Mar, Schizoaffective disorder, depressive type F25.1 ; BMI 45.0- 49.9, adult Z68.42 and BMI 40.0-44.9, adult Z68.41 [facility] [address] [place] [id number] [place] [address] 15947- 6906 Mar, Primary insomnia F51.01 [facility] [address] [place] [id number] [place] [address] 85661- 9157 Mar, [place] [address] [place] [id number] [place] [address] 34204- 8647 Feb, Primary insomnia F51.01 [place] [address] [place] [id number] [place] [address] 71014- 1240 Feb, [place] [address] [place] [id number] [place] [address] 14719- 2807 Jan, Schizoaffective disorder, depressive type F25.1 and BMI 45.0 -49.9, adult Z68.42 [place] [address] [place] [id number] [place] [address] 09297- 3390 Jan, [place] [address] [place] [id number] [place] [address] 97092- 0968 16 Jan, 2018 Type 2 diabetes mellitus with diabetic neuropathic arthropathy, 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 ; Menopausal syndrome (hot flashes) N95.1 and BMI 40.0-44.9, adult Z68.41 [place] [address] [place] [id number] [place] [address] 87960- 3907 Jan, Paranoid schizophrenia F20.0 [place] [address] [place] [id number] [place] [address] 33513- 2475 Jan, [place] [address] [place] [id number] [place] [address] 65744- 5694 Jan, Schizoaffective disorder, depressive type F25.1 [place] [address] [place] [id number] [place] [address] 36729- 8546 Jan, [place] [address] [place] [id number] [place] [address] 38470- 3434 02 Jan, 2018 Chronic obstructive pulmonary disease, unspecified COPD type J44.9 ; BMI 45.0-49.9, adult Z68.42 ; Type 2 diabetes mellitus without complication, without long-term current use of insulin E11.9 ; Hypothyroidism ( acquired) E03.9 ; Encounter for immunization Z23 ; Gastroesophageal reflux disease without esophagitis K21.9 ; Primary insomnia F51.01 and Acute nasopharyngitis J00 [facility] [id number] [place] [address] 61004- 1505 27 Dec, 2017 [facility] [address] [place] [id number] [place] [address] 15591- 1453 21 Dec, 2017 Schizoaffective disorder, depressive type F25.1 and BMI 45.0 -49.9, adult Z68.42 [facility] [address] [place] [id number] [place] [address] 31063- 4919 Dec, [facility] [address] [place] [id number] [place] [address] 41493- 5062 18 Dec, 2017 [facility] [address] [place] [id number] [place] [address] 28287- 5174 18 Dec, 2017 Acute non-recurrent frontal sinusitis J01.10 [facility] [address] [place] [id number] [place] [address] 30898- 8971 18 Dec, 2017 Acute non-recurrent frontal sinusitis J01.10 ; Weakness of left leg R29.898 ; At high risk for falls Z91.81 and BMI 45.0-49.9, adult Z68.42 [facility] [address] [place] [id number] [place] [address] 09276- 9971 17 Dec, 2017 [facility] [address] [place] [id number] [place] [address] 49670- 4746 17 Dec, 2017 [facility] [address] [place] [id number] [place] [address] 75289- 6240 10 Dec, 2017 Schizoaffective disorder, depressive type F25.1 [facility] [address] [place] [id number] [place] [address] 04828 -4451 10 Dec, 2017 Acute nasopharyngitis J00 [facility] [address] [place] [id number] [place] [address] 93699- 3764 05 Dec, 2017 Schizoaffective disorder, depressive type F25.1 [facility] [address] [place] [id number] [place] [address] 97817- 6548 Dec, [place] [address] [address]- 6750 Nov, Schizoaffective disorder, depressive type F25.1 and BMI 45.0 -49.9, adult Z68.42 [place] [address] [address]- 2616 Nov, [place] [address] [place] [id number] [place] [address] 20805- 9129 Nov, [place] [address] [place] [id number] [place] [address] 48592- 6599 Nov, Schizoaffective disorder, depressive type F25.1 [place] [id number] [place] [address] 28492- 1825 Nov, Well woman exam Z01.419 ; BMI 45.0-49.9, adult Z68.42 ; Screening breast examination Z12.31 and Dietary counseling and surveillance Z71.3 [place] [id number] [place] [address] 28645- 7055 Nov, Paranoid schizophrenia F20.0 [place] [id number] [place] [address] 41800- 0666 Nov, Gastroesophageal reflux disease, esophagitis presence not specified K21.9 [place] [address] [address]- 7908 Oct, Paranoid schizophrenia F20.0 [facility] [id number] [address] Oct Chronic pain syndrome G89.4 and Schizoaffective disorder, depressive type F25.1 [place] [address] [address]- 3394 Oct, Chronic pain syndrome G89.4 and Schizoaffective disorder, depressive type F25.1 [place] [address] [address]- 3177 Oct, Type 2 diabetes mellitus without complication, without long- term current use of insulin E11.9 [place] [id number] [place] [address] 30666- 9855 12 Oct, 2017 Essential hypertension I10 and DM neuro manif type II E11.49 [place] [address] [place] [id number] [place] [address] 14635- 7872 Oct, [place] [address] 05680- 8696 Oct, Schizoaffective disorder, depressive type F25.1 and BMI 45.0 -49.9, adult Z68.42 [place] [address] [place] [id number] [place] [address] 41469- 5678 Oct, [place] [address] [place] [id number] [place] [address] 38579- 8948 Oct, Paranoid schizophrenia F20.0 [place] [address] [place] [id number] [place] [address] 67442- 4743 Oct, Type 2 diabetes mellitus with diabetic neuropathic arthropathy, 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 ; Essential hypertension I10 ; Hypothyroidism (acquired) E03.9 ; Chronic obstructive pulmonary disease, unspecified COPD type J44.9 and Diabetic polyneuropathy associated with type 2 diabetes mellitus E11.42 [place] [id number] [place] [address] 61120- 5437 Sep, Paranoid schizophrenia F20.0 [place] [address] [place] [id number] [place] [address] 66809- 2459 Sep, Paranoid schizophrenia F20.0 and BMI 45.0-49.9, adult Z68.42 [place] [address] [place] [id number] [place] [address] 93083- 0591 Sep, Schizoaffective disorder, depressive type F25.1 [place] [id number] [place] [address] 55981- 8237 Sep, [place] [address] [place] [id number] [address]- 5841 Sep, Paranoid schizophrenia F20.0 [facility] [address] [place] [id number] [place] [address] 67502- 7594 Sep, [facility] [address] [place] [id number] [place] [address] 33710- 9526 Sep, Hypothyroidism (acquired) E03.9 [facility] [address] 69153- 3043 Sep, [facility] [address] [place] [id number] [place] [address] 30505- 9871 August, Schizoaffective disorder, depressive type F25.1 [facility] [address] [place] [id number] [place] [address] 15643- 2604 August, [facility] [address] [place] [id number] [place] [address] 70693- 7390 August, [facility] [address] [place] [id number] [place] [address] 24883- 6405 August, [facility] [address] [place] [id number] [place] [address] 38156- 9999 August, Paranoid schizophrenia F20.0 [facility] [address] [place] [id number] [place] [address] 55945- 6556 August, History of lupus Z87.39 and Chronic pain syndrome G89.4 [facility] [id number] [place] [address] 08739- 7918 August, [facility] [id number] [place] [address] 35554 -4487 August, Seasonal allergic rhinitis, unspecified trigger J30.2 and BMI 45.0-49.9, adult Z68.42 [facility] [address] [address]- 4195 Jul, Schizoaffective disorder, depressive type F25.1 [facility] [address] [place] [id number] [place] [address] 36041- 5820 Jul, [facility] [address] 16076- 0887 13 Jul, 2017 Hypothyroidism (acquired) E03.9 [facility] [address] 75032- 7363 11 Jul, 2017 Chronic obstructive pulmonary disease, unspecified COPD type J44.9 and Type 2 diabetes mellitus without complication, without long-term current use of insulin E11.9 [facility] [address] 20488- 5965 Jul, Paranoid schizophrenia F20.0 [place] [address] 05227- 0084 Jun, Hypothyroidism (acquired) E03.9 and Seasonal allergic rhinitis due to pollen J30.1 [facility] [address] 74930 -3342 Jun, Shortness of breath at rest R06.02 ; COPD exacerbation J44.1 and BMI 45.0-49.9, adult Z68.42 [facility] [address] 89811- 4467 Jun, [facility] [address] 50751- 0122 Jun, Paranoid schizophrenia F20.0 ; Depression with anxiety F41.8 and BMI 45.0-49.9, adult Z68.42 [facility] [address] [place] [id number] [place] [address] 17868- 3781 Jun, Schizoaffective disorder, depressive type F25.1 [facility] [address] [id number] Jun, Dental caries K02.9 [facility] [address] 40367- 7341 Jun, Paranoid schizophrenia F20.0 [facility] [id number] [place] [address] 48646- 4786 May, Migraine without aura and without status migrainosus, not intractable G43.009 ; DM neuro manif type II E11.49 and Type 2 diabetes mellitus without complication, without long-term current use of insulin E11.9 [facility] [address] [place] [id number] [place] [address] 29370- 0680 May, Migraine without aura and without status migrainosus, not intractable G43.009 [place] [address] 89458- 2089 May, Depression with anxiety F41.8 [facility] [address] [place] [id number] May, [facility] [address] 31374- 1045 May, [place] [address] 39858- 8941 May, [place] [address] 35039- 6414 May, Hypothyroidism (acquired) E03.9 [place] [address] [place] [id number] [place] [address] 45133- 3927 May, Paranoid schizophrenia F20.0 [facility] [address] [place] [id number]- 2366 May, Type 2 diabetes mellitus without complication, without [...] N32.81 and Controlled substance agreement signed Z79.899 [facility] [address] [place] [id number] [place] [address] 37153- 7708 02 May, 2017 Controlled substance agreement signed Z79.899 [facility] [address] [place] [id number] [place] [address] 16481- 2602 Apr, [facility] [address] [id number] [place] [address] [id number] Apr, Dental examination Z01.20 [facility] [address] [place] [id number] [place] [address] 97293- 7993 Apr, Paranoid schizophrenia F20.0 [facility] [address] [place] [id number] [place] [address] 61122- 8489 Apr, Hypertension, unspecified type I10 [facility] [address] [place] [id number] [place] [address] 16795- 2702 Apr, Paranoid schizophrenia F20.0 [facility] [address] [place] [id number] [place] [address] 81704- 4444 Apr, [facility] [address] [place] [id number] [place] [address] 59644- 8577 Apr, Tobacco abuse Z72.0 [facility] [id number] [place] [address] 82434- 2601 Apr, [facility] [address] [place] [id number] [place] [address] 35628- 8485 Mar, [facility] [address] [place] [place] [id number] [place] [address] 36882- 6805 Mar, Paranoid schizophrenia F20.0 and BMI 45.0-49.9, adult Z68.42 [facility] [id number] [place] [address] 42426- 1779 Mar, Schizoaffective disorder, depressive type F25.1 [facility] [address] 61984- 0255 14 Mar, 2017 [place] [address] 95043- 8888 Mar, Hypothyroidism, unspecified type E03.9 [place] [address] 30703- 7323 Mar, Schizoaffective disorder, depressive type F25.1 [facility] [address] 93234 -9641 Feb, Gastroenteritis K52.9 and BMI 45.0-49.9, adult Z68.[address] 79873- 0067 Feb, [place] [address] 57951- 2293 Feb, [place] [address] 15624- 3833 Feb, [place] [address] 63763- 9320 Feb, [address] 45805- 5054 Feb, Paranoid schizophrenia F20.[address] 13224- 2872 06 Feb, 2017 Gastroesophageal reflux disease without esophagitis K21.9 ; Other seasonal allergic rhinitis J30.2 ; Other allergic rhinitis J30.89 ; Tobacco abuse Z72.0 and BMI 40.0-44.9, adult Z68.[address] 85230- 6325 03 Feb, 2017 Onychomycosis B35.1 ; Callus of foot L84 and DM neuro manif type II E11.[address] 22636- 8182 Jan, Chronic allergic rhinitis J30.9 [facility] [address] [place] [id number] [place] [address] 00875- 7000 16 Jan, 2017 [facility] [address] 90050- 9692 Jan, Schizoaffective disorder, depressive type F25.1 [facility] [address] 72287- 0536 10 Jan, 2017 [facility] [address] 70498 -9633 07 Jan, 2017 Sore throat J02.9 and Seasonal allergic rhinitis due to other allergic trigger J30.89 [facility] [address] [address] 04 Jan, 2017 [facility] [address] [address] Jan, [facility] [address] [id number] Jan, Chronic allergic rhinitis J30.9 [facility] [address] [address] 27 Dec, 2016 Paranoid schizophrenia F20.0 ; Primary insomnia F51.01 and Schizoaffective disorder, depressive type F25.1 [facility] [id number] [place] [address] 59069- 8318 21 Dec, 2016 Chronic pain syndrome G89.4 ; Cervicalgia of occipito- atlanto-axial region M54.2 ; Menopausal syndrome (hot flashes) N95.1 and Encounter for immunization Z23 [facility] [address] 82464- 6211 14 Dec, 2016 [facility] [address] 77916- 3586 13 Dec, 2016 [facility] [id number] [place] [address] 20340- 5326 08 Dec, 2016 Paranoid schizophrenia F20.0 [facility] [address] [address] 7813 Dec, Schizoaffective disorder, depressive type F25.1 [facility] [id number] [place] [address] 49041- 1611 Nov, Hypothyroidism, unspecified type E03.9 [facility] [id number] [place] [address] 35002 -3782 Nov, Acute seasonal allergic rhinitis due to other allergen J30.89 [facility] [id number] [place] [address] 61092- 8233 Nov, [place] [id number] [place] [address] 70182- 6418 Nov, Hypothyroidism, unspecified type E03.9 and Other elevated white blood cell (WBC) count D72.828 [place] [id number] [place] [address] 78955- 9557 Nov, Schizoaffective disorder, depressive type F25.1 [place] [id number] [place] [address] 76302- 8075 Nov, Paranoid schizophrenia F20.0 [place] [id number] [place] [address] 59048- 1882 Nov, Type 2 diabetes mellitus without complication, without long- term current use of insulin E11.9 ; Morbid obesity due to excess calories E66.01 and Chronic pain syndrome G89.4 [facility] [id number] [place] [address] 88266- 1692 Oct, Paranoid schizophrenia F20.0 [place] [id number] [place] [address] 78918- 7558 Oct, [place] [id number] [place] [address] 00490- 1974 Oct, Schizoaffective disorder, depressive type F25.1 [place] [address] [place] [address] 6051 Oct, Hypothyroidism, unspecified type E03.9 and Other elevated white blood cell (WBC) count D72.828 [facility] [id number] [place] [address] 43915- 7198 Oct, Morbid obesity due to excess calories E66.01 ; Chronic obstructive pulmonary disease, unspecified COPD type J44.9 ; History of lupus Z87.39 ; Hypothyroidism, unspecified type E03.9 ; Gastroesophageal reflux disease without esophagitis K21.9 ; Primary insomnia F51.01 and Chronic pain syndrome G89.4 [facility] [id number] [place] [address] 93751- 5933 Sep, [facility] [id number] [place] [address] 06305- 8823 Sep, [place] [id number] [place] [address] 12796- 4220 Sep, [facility] [id number] [place] [address] 73082- 1279 Sep, Paranoid schizophrenia F20.0 [facility] [id number] [place] [address] 16378- 1436 Sep, [facility] [id number] [place] [address] 63704- 8302 Sep, Paranoid schizophrenia F20.0 [facility] [id number] [place] [address] 76289- 8357 Sep, [facility] [id number] [place] [address] 33281- 5263 August, Paranoid schizophrenia F20.0 [facility] [id number] [place] [address] 44256- 9889 Jul, [facility] [id number] [place] [address] 36292- 8247 Jul, Type 2 diabetes mellitus without complication, without long- term current use of insulin E11.9 ; Morbid obesity due to excess calories E66.01 ; Depression with anxiety F41.8 ; Hypothyroidism, unspecified type E03.9 ; Seasonal allergic rhinitis due to other allergic trigger J30.89 ; Pain, dental K08.89 and Gastroesophageal reflux disease without esophagitis K21.9 [facility] [address] [id number] 12 Jul, 2016 Dental examination Z01.20 [place] [address] 88740- 3866 07 Jul, 2016 Paranoid schizophrenia F20.[address] 87339- 7958 13 Jun, 2016 Paranoid schizophrenia F20.0 and Depression with anxiety F41.8 [place] [id number] [place] [address] 53521- 4286 Jun, Paranoid schizophrenia F20.0 and Depression with anxiety F41.8 [place] [id number] [place] [address] 22024- 6109 09 Jun, 2016 [address] [id number] [place] [address] 56039- 3860 Jun, [facility] [id number] [place] [address] 16237 -0996 Jun, Seasonal allergic rhinitis due to other allergic trigger J30.89 [facility] [id number] [place] [address] 00163 -7589 25 May, 2016 Sore throat J02.9 ; Other viral agents as the cause of diseases classified elsewhere B97.89 and Acute upper respiratory infection, unspecified J06.9 [place] [id number] [place] [address] 42994- 7445 08 May, 2016 Paranoid schizophrenia F20.0 and Depression with anxiety F41.8 [place] [id number] [place] [address] 35895- 7939 Apr, Other seasonal allergic rhinitis J30.2 [place] [id number] [place] [address] 97702- 5981 Apr, Paranoid schizophrenia F20.0 and Depression with anxiety F41.8 [facility] [id number] [place] [address] 76827 -6482 Apr, Bronchitis J40 and Sore throat J02.9 [place] [address] 60714- 9780 Apr, Type 2 diabetes mellitus without complication, without long- term current use of insulin E11.9 [facility] [id number] [place] [address] 27945 -4503 Apr, Bronchitis J40 [place] [address] 45117- 5497 Apr, [place] [id number] [place] [address] 88242- 8078 Apr, [place] [id number] [place] [address] 86831- 5209 Mar, Type 2 diabetes mellitus without complication, [...] R60.9 and Other seasonal allergic rhinitis J30.2 [place] [id number] [place] [address] 16761- 6490 Mar, Paranoid schizophrenia F20.0 and Depression with anxiety F41.8 [place] [id number] [place] [address] 28671- 3263 Feb, [place] [id number] [place] [address] 41022- 6024 Feb, [id number] [address]- 2394 Feb, [facility] [id number] [place] [address] 02651- 0018 Feb, [facility] [id number] [place] [address] 27280- 4687 14 Feb, 2016 Type 2 diabetes mellitus without complication, without long- term current use of insulin E11.9 ; ARIAS on CPAP G47.33 and Preoperative evaluation to rule out surgical contraindication Z01.818 [facility] [id number] [place] [address] 21018- 5551 09 Feb, 2016 Paranoid schizophrenia F20.0 and Depression with anxiety F41.8 [facility] [id number] [place] [address] 93875- 5717 Jan, [facility] [id number] [place] [address] 67288- 2644 Jan, Paranoid schizophrenia F20.0 and Depression with anxiety F41.8 [facility] [id number] [place] [address] 14227- 2194 Jan, [facility] [id number] [place] [address] 80386- 4257 Jan, Muscle strain T14.8 [facility] [id number] [place] [address] 07877- 8233 Jan, Paranoid schizophrenia F20.0 [facility] [id number] [place] [address] 82639- 5002 Jan, [facility] [id number] [place] [address] 01285- 3436 Jan, Paranoid schizophrenia F20.0 and Depression with anxiety F41.8 [facility] [id number] [place] [address] 84834- 8607 Jan, [facility] [id number] [place] [address] 62671- 8385 Jan, [facility] [address] [address]- 0675 Dec, [facility] [id number] [place] [address] 37306- 6406 Dec, Paranoid schizophrenia F20.0 [facility] [address] [address]- 8549 Dec, Paranoid schizophrenia F20.0 and Depression with anxiety F41.8 [facility] [address] [address]- 5379 Nov, [facility] [id number] [place] [address] 51367- 6830 Nov, Paranoid schizophrenia F20.0 [facility] [address] [address]- 3685 Nov, Paranoid schizophrenia F20.0 and Depression with anxiety F41.8 [facility] [address] [address]- 9889 Nov, Type 2 diabetes mellitus without complication, without long- term current use of insulin E11.9 ; Paranoid schizophrenia F20.0 ; Chronic obstructive pulmonary disease, unspecified COPD type J44.9 ; Morbid obesity due to excess calories E66.01 and Parkinsonian tremor G20 [facility] [address] [address]- 9375 Nov, [facility] [address] [address]- 6772 Oct, Paranoid schizophrenia F20.0 [facility] [address] [address]- 6856 Oct, Paranoid schizophrenia F20.0 [facility] [id number] [address]- 8301 Oct, Paranoid schizophrenia F20.0 and Depression with anxiety F41.8 [facility] [id number] [address]- 0522 Oct, [place] [id number] [place] [address] 65026- 8100 Oct, Paranoid schizophrenia F20.0 and Depression with anxiety F41.8 [place] [id number] [place] [address] 89625- 7448 Oct, Nasal sore J34.89 [place] [id number] [place] [address] 75889- 1561 Oct, Type 2 diabetes mellitus without complication, without long- term current use of insulin E11.9 ; Depression with anxiety F41.8 ; Hypothyroidism, unspecified type E03.9 and History of lupus Z87.39 [place] [id number] [place] [address] 07165- 5823 Oct, [place] [id number] [place] [address] 43537- 2221 Oct, Type 2 diabetes mellitus without complication, [...] edema R60.9 and History of lupus Z87.39 [place] [id number] [place] [address] 87068- 0269 Feb, [place] [id number] [place] [address] 57730- 2116 Jan, [place] [id number] [place] [address] 02460- 0912 Jan, [place] [id number] [place] [address] 98948- 7737 Jan, [facility] [address] [facility] [id number] [place] [address]- 9994 Dec, [facility] [address] [facility] [id number] [place] [address]- 7286 Nov, [facility] [id number] [place] [address]- 2134 Nov, [facility] [id number] [place] [address]- 2597 Oct, [facility] [id number] [place] [address]- 5665 Oct, [facility] [id number] [place] [address], [place] [address]- 7060 Oct, [facility] [id number] [place] [address]- 1480 Sep, Allergic rhinitis 477.9 [facility] [address] [place] [address]- 0009 Sep, Rhinitis, allergic 477.9 [facility] [id number] [place] [address], [place] [address]- 7755 Sep, Rhinitis, allergic 477.9 [facility] [address] [place] [address]- 8594 Sep, [facility] [address] [address]- 9726 August, [facility] [id number] [address]- 3606 August, [facility] [address] [place] [address]- 5080 August, [facility] [address] [facility] [address] [id number] [address]- 2426 Jul, [facility] [address] [address]- 2424 14 Jul, 2014 [facility] [place] [facility] [address] [id number] [place] [address]- 8644 13 Jul, 2014 [facility] [place] [facility] [address] [id number] [place] [address]- 3900 16 Jun, 2014 [facility] [place] [facility] [address] [id number] [place] 9256 16 Jun, 2014 [facility] [place] [facility] [address] [id number] [place] [address]- 0322 Jun, [facility] [place] [facility] [address] [id number] [place] [address]- 2248 Jun, [facility] [place] [facility] [address] [id number] [place] [address]- 2285 Jun, [facility] [place] [facility] [address] [id number] [place] [address]- 1086 Jun, [facility] [place] [facility] [address] [id number] [place] [address]- 1502 Jun, [facility] [place] [facility] [address] [id number] [place] [address]- 1736 Jun, [facility] [place] [facility] [address] [id number] [place] [address]- 5645 May, [facility] [place] [facility] [address] [id number] [place] [address]- 4030 May, [facility] [place] [facility] [address] [id number] [place] [address]- 8492 May, [facility] [place] [facility] [address] [id number] [place] 8427 May, [facility] [place] [facility] [address] [id number] [place] [address]- 3568 Apr, [facility] [place] [facility] [address] [id number] [place] [address]- 8311 Mar, [facility] [place] [facility] [address] [id number] [place] [address]- 1363 Mar, [facility] [place] [facility] [address] [id number] [place] [address]- 9067 Mar, [facility] [place] [facility] [address] [id number] [place] [address]- 2213 Mar, [facility] [place] [facility] [address] [id number] [place] [address]- 3357 Mar, [facility] [place] [facility] [address] [id number] [place] [address]- 6237 Mar, [facility] [place] [facility] [address] [id number] [place] [address]- 3776 Mar, [facility] [place] [facility] [address] [id number] [place] [address]- 7907 Mar, [facility] [place] [facility] [address] [id number] [place] [address]- 2467 Mar, [facility] [place] [facility] [address] [id number] [place] [address]- 3493 Feb, [facility] [place] [facility] [address] [id number] [place] [address]- 3542 Feb, [facility] [place] [facility] [address] [id number] [place] [address]- 4334 Feb, [facility] [place] [facility] [address] [id number] [place] [address]- 6973 17 Feb, 2014 [facility] [place] [facility] [address] [id number] [place] [address]- 4544 Feb, [facility] [place] [facility] [address] [id number] [place] [address]- 4758 14 Feb, 2014 [facility] [place] [facility] [address] [id number] [place] [address]- 2184 Feb, [facility] [place] [facility] [address] [id number] [place] [address]- 2084 Feb, [facility] [place] [facility] [address] [id number] [place] [address]- 1801 23 Jan, 2014 [facility] [place] [facility] [address] [id number] [place] [address]- 9254 23 Jan, 2014 [facility] [place] [facility] [address] [id number] [place] [address]- 0939 16 Jan, 2014 [facility] [place] [facility] [address] [id number] [place] [address]- 3378 16 Jan, 2014 [facility] [place] [facility] [address] [id number] [place] [address]- 4449 15 Jan, 2014 [facility] [place] [facility] [address] [id number] [place] [address]- 7387 15 Jan, 2014 [facility] [place] [facility] [address] [id number] [place] [address]- 9417 14 Jan, 2014 [facility] [place] [facility] [address] [id number] [place] [address]- 6621 14 Jan, 2014 [facility] [place] [facility] [address] [id number] [place] [address]- 7999 14 Jan, 2014 [facility] [place] [facility] [address] [id number] [address]- 0036 14 Jan, 2014 [facility] [place] [facility] [address] [id number] [address]- 1870 18 Dec, 2013 [facility] [place] [facility] [address] [id number] [address]- 9457 18 Dec, 2013 [facility] [place] [facility] [address] [id number] [place] [address]- 0243 10 Dec, 2013 [facility] [place] [facility] [address] [id number] [place] [address]- 7791 10 Dec, 2013 [facility] [place] [facility] [address] [id number] [address]- 5390 22 Nov, 2013 [facility] [place] [facility] [address] [id number] [address]- 5446 Nov, [facility] [place] [facility] [address] [id number] [place] [address]- 8269 Nov, [facility] [place] [facility] [address] [id number] [place] [address]- 6492 Nov, [facility] [place] [facility] [address] [id number] [place] [address]- 2894 Nov, [facility] [place] [facility] [address] [id number] [place] [address]- 2171 Oct, [facility] [place] [facility] [address] [id number] [place] [address]- 6196 Oct, [facility] [place] [facility] [address] [id number] [place] [address]- 3688 Oct, [facility] [place] [facility] [address] [id number] [place] [address]- 6352 Oct, [facility] [place] [facility] [address] [id number] [place] [address]- 5524 Sep, [facility] [place] [facility] [address] [id number] [place] [address]- 5803 Sep, [facility] [place] [facility] [address] [facility] [id number] [place] [address]- 5477 Sep, [facility] [place] [facility] [address] [id number] [place] [address]- 2666 Sep, [facility] [place] [facility] [address] [id number] [place] [address]- 3081 Sep, [facility] [place] [facility] [address] [id number] [place] [address]- 5260 Sep, [facility] [place] [facility] [address] [id number] [place] [address]- 6236 Sep, [facility] [place] [facility] [address] [id number] [place] [address]- 3406 Sep, [facility] [place] [facility] [address] [id number] [place] [address]- 9360 August, [facility] [place] [facility] [address] [id number] [place] [address]- 7708 August, [facility] [place] [facility] [address] [id number] [place] [address]- 4116 August, [facility] [place] [facility] [address] [id number] [place] [address]- 6127 August, [facility] [place] [facility] [address] [id number] [place] [address]- 2045 August, [facility] [place] [facility] [address] [id number] [place] [address]- 9795 August, [facility] [place] [facility] [address] [id number] [place] [address] August, [facility] [place] [facility] [address] [id number] [place] [address] Jul, [facility] [place] [facility] [address] [id number] [place] [address] Jul, [facility] [place] [facility] [address] [id number] [place] [address] Jul, [facility] [place] [facility] [address] [id number] [place] [address] Jul, [facility] [place] [facility] [address] [id number] [place] [address] 28 Jul, 2013 [facility] [place] [facility] [address] [id number] [place] [address] Jul, [facility] [place] [facility] [address] [id number] [place] [address] 2013 [facility] [place] [facility] [address] [id number] [place] [address] Jul, [facility] [place] [facility] [address] [id number] [place] [address] Jul, [facility] [place] [facility] [address] [id number] [place] [address] Jul, [facility] [place] [facility] [address] [id number] [place] [address] Jul, [facility] [place] [facility] [address] [facility] [id number] [place] [address] Jul, [facility] [place] [facility] [address] [id number] [place] [address] Jun, [facility] [place] [facility] [address] [id number] [place] [address] Jun, [facility] [place] [facility] [address] [facility] [id number] [place] [address] Jun, [facility] [place] [facility] [address] [facility] [id number] [place] [address] Jun, [facility] [place] [facility] [address] [facility] [id number] [place] [address] Jun, [facility] [place] [facility] [address] [facility] [id number] [place] [address] May, [facility] [place] [facility] [address] [facility] [address] [id number] [place] [address] May, [facility] [place] [facility] [address] [facility] [address] [id number] [place] [address] May, [facility] [place] [facility] [address] [id number] [place] [address] May, [facility] [place] [facility] [address] [facility] [id number] [place] [address] May, [facility] [place] [facility] [address] [facility] [address] [id number] [place] [address] May, [facility] [place] [facility] [address] [facility] [id number] [place] [address]- [address] May, [facility] [place] [facility] [address] [id number] [place] [address] May, [facility] [place] [facility] [address] [id number] [place] [address] Mar, [facility] [place] [facility] [address] [id number] [place] [address] Mar, [facility] [place] [facility] [address] [id number] [place] [address] Mar, [facility] [place] [facility] [address] [id number] [place] [address] Mar, [facility] [place] [facility] [address] [id number] [place] [address] Mar, [facility] [place] [facility] [address] [id number] [place] [address] Mar, [facility] [place] [facility] [address] [id number] [place] [address] Feb, [facility] [place] [facility] [address] [id number] [place] [address] Feb, [facility] [place] [facility] [address] [id number] [place] [address] Jan, [facility] [place] [facility] [address] [id number] [place] [address] Jan, [facility] [place] [facility] [address] [id number] [place] [address] Jan, [facility] [place] [facility] [address] [id number] [place] [address] Jan, [facility] [place] [facility] [address] [id number] [place] [address] Jan, [facility] [place] [facility] [address] [id number] [place] [address] Jan, [facility] [place] [facility] [address] [id number] [place] [address] Jan, [facility] [place] [facility] [address] [id number] [place] [address] Jan, [facility] [place] [facility] [address] [id number] [place] [address] Jan, [facility] [place] [facility] [address] [id number] [place] [address] Jan, [facility] [place] [facility] [address] [id number] [place] [address] Dec, [facility] [place] [facility] [address] [id number] [place] [address] Nov, [facility] [place] [facility] [address] [id number] [place] [address] Nov, [facility] [place] [facility] [address] [id number] [place] [address] Nov, [facility] [place] [facility] [address] [id number] [place] [address] Oct, [facility] [place] [facility] [address] [id number] [place] [address] Oct, [facility] [place] [facility] [address] [id number] [place] [address] August, [facility] [place] [facility] [address] [id number] [address] Apr, [facility] [place] [facility] [address] [id number] [address] Apr, [facility] [place] [facility] [address] [id number] [place] [address] Feb, [facility] [place] [facility] [address] [id number] [address] Feb, [facility] [place] [facility] [address] [id number] [place] [address] Dec, [facility] [place] [facility] [address] [facility] [address] [id number] [place] [address] Dec, [facility] [address] [facility] [address] [id number] [address] Oct, [facility] [address] [facility] [address] [id number] [address] Oct, [facility] [address] [facility] [address] [id number] [address] Oct, [facility] [address] [facility] [address] [id number] [id number] [address] Jul, IMMUNIZATIONS No Known Immunizations SOCIAL HISTORY Never Assessed REASON FOR VISIT [place] [place] VITAL SIGNS MEDICATIONS Unknown [...] for psychosis/mental illness , last one in [facility] 4 years ago
--- OUTSIDE RECORDS SUMMARY | 2018-09-02 13:03 | XMS REPORT ---
Author Author Migration, Doctor Organization [facility] Address Unknown Phone Unavailable Care Team Providers Care Wage Adjuster Name Role Phone Migration, Doctor Unavailable Unavailable PROBLEMS Type Condition ICD9-CM Code ZZT43-GB Code Onset Dates Condition Status SNOMED Code Problem History of lupus Z87.39 Active 188254204 Problem OAB (overactive bladder) N32.81 Active 476660378 Problem Chronic pain syndrome G89.4 Active 851305709 Problem Type 2 diabetes mellitus without complication, without long-term current use of insulin E11.9 Active 176355141 Problem Depression with anxiety F41.8 Active 955198831 Problem Paranoid schizophrenia F20.0 Active 11462355 Problem Essential hypertension I10 Active 75555405 Problem Dyslipidemia E78.5 Active 508989416 Problem Schizoaffective disorder, depressive type F25.1 Active 38472467 Problem Seasonal allergic rhinitis due to other allergic trigger J30.89 Active 282948422 Problem DM neuro manif type II E11.49 Active 38406954 Problem Primary insomnia F51.01 Active 1761903 Problem Other allergic rhinitis J30.89 Active 949140219 Problem Menopausal syndrome (hot flashes) N95.1 Active 616126053 Problem Tobacco abuse Z72.0 Active 638041848 Problem Other seasonal allergic rhinitis J30.2 Active 566069215 Problem Hypothyroidism (acquired) E03.9 Active 933769526 Problem Gastroesophageal reflux disease, esophagitis presence not specified K21.9 Active 279422284 Problem Migraine without aura and without status migrainosus, not intractable G43.009 Active 154965274 Problem Cigarette nicotine dependence without complication F17.210 Active 60367062 Problem Morbid obesity due to excess calories E66.01 Active 337223168 Problem Allergic rhinitis, unspecified seasonality, unspecified trigger J30.9 Active 77870144 Problem Chronic obstructive pulmonary disease, unspecified COPD type J44.9 Active 66618416 Problem Gastroesophageal reflux disease without esophagitis K21.9 Active 086402735 Problem COPD exacerbation J44.1 Active 882182190 Problem Seasonal allergic rhinitis due to pollen J30.1 Active 32584447 Problem Diabetic polyneuropathy associated with type 2 diabetes mellitus E11.42 Active 515640965 Problem Type 2 diabetes mellitus with diabetic neuropathic arthropathy, 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 Active 342107457 ALLERGIES No Information ENCOUNTERS Encounter Location Date Diagnosis [place] [id number] [place] [address] 70222- 3458 Sep, [place] [address] [place] [id number] [place] [address] 50730- 7550 Jul, [place] [address] [place] [id number] [place] [address] 40593- 4787 Jul, Cigarette nicotine dependence without complication F17.210 [place] [address] [place] [id number] [place] [address] 43396- 3735 Jul, Type 2 diabetes mellitus without complication, without long- term current use of insulin E11.9 and Hypothyroidism (acquired) E03.9 [place] [address] [place] [id number] [place] [address] 30791- 2630 Jul, Encounter for Medicare annual wellness exam Z00.00 ; Morbid obesity due to excess calories E66.01 ; Diabetic polyneuropathy associated with type 2 diabetes mellitus E11.42 ; Chronic obstructive pulmonary disease, unspecified COPD type J44.9 ; Schizoaffective disorder, depressive type F25.1 and Hypothyroidism (acquired) E03.9 [place] [id number] [place] [address] 17531- 1876 Jun, Gastroesophageal reflux disease without esophagitis K21.9 [place] [address] [place] [id number] [place] [address] 73168- 3914 Jun, Paranoid schizophrenia F20.0 [place] [address] [place] [id number] [place] [address] 69795- 9664 Jun, Schizoaffective disorder, depressive type F25.1 [place] [address] [place] [id number] [place] [address] 38487- 2892 Jun, [place] [address] [place] [address] [address] 68[address] 20 Jun, 2018 Schizoaffective disorder, depressive type F25.1 [facility] [address] [place] [id number] [place] [address] 83041- 6675 Jun, Cigarette nicotine dependence without complication F17.210 [facility] [address] [place] [id number] [place] [address] 00328- 6653 18 Jun, 2018 Type 2 diabetes mellitus without complication, without long- term current use of insulin E11.9 [facility] [address] [place] [address] 66568- 7299 15 Jun, 2018 [facility] [address] [place] [id number] [place] [address] 71353- 9186 Jun, [facility] [address] [place] [id number] [place] [address] 19840- 6525 Jun, [facility] [address] [place] [id number] [place] [address] 97002- 3543 Jun, [facility] [address] [place] [id number] [place] [address] 87968- 9969 Jun, [facility] [address] [place] [id number] [place] [address] 11997- 7965 Jun, Paranoid schizophrenia F20.0 ; Type 2 diabetes mellitus without complication, without long-term current use of insulin E11.9 ; Hypothyroidism (acquired) E03.9 and Morbid obesity E66.01 [facility] [address] [place] [address] 86726- 2725 May, Paranoid schizophrenia F20.0 [facility] [address] [place] [id number] [place] [address] 81888- 7648 May, Hypothyroidism (acquired) E03.[address] [facility] [address] [place] [address] 35786- 3459 May, Cigarette nicotine dependence without complication F17.210 [facility] [address] [place] [id number] [place] [address] 99458- 9403 18 May, 2018 [facility] [address] 81590- 8002 14 May, 2018 Type 2 diabetes mellitus without complication, without long- term current use of insulin E11.9 ; Essential hypertension I10 ; Hypothyroidism (acquired) E03.[address] [facility] [address] 16815- 8951 May, [facility] [address] 85057- 6901 May, Schizoaffective disorder, depressive type F25.1 [place] [address] 97743- 2391 May, Paranoid schizophrenia F20.0 [place] [address] 22595- 5219 May, [facility] [address] [place] [address] May, [facility] [address] 01659- 2960 May, [facility] [address] 69028- 4024 May, Type 2 diabetes mellitus without complication, without long- term current use of insulin E11.9 ; Essential hypertension I10 ; Hypothyroidism (acquired) E03.[address] [facility] [address] [place] [id number] [place] [address] 86841- 7531 May, [facility] [address] 02794- 2907 May, Acute nasopharyngitis J00 [facility] [address] [place] [id number] [place] [address] 95870 -5787 May, Allergic rhinitis, unspecified seasonality, unspecified trigger J30.9 [facility] [address] [place] [id number] [place] [address] 83008- 3011 May, [facility] [address] [place] [id number] [place] [address] 91729- 2278 Apr, Schizoaffective disorder, depressive type F25.1 [facility] [address] [place] [id number] [place] [address] 95138- 6329 Apr, [facility] [address] [place] [id number] [place] [address] 56951- 8311 Apr, Cigarette nicotine dependence without complication F17.210 [place] [address] [place] [id number] [place] [address] 75153- 4554 Apr, [facility] [address] [place] [id number] [place] [address] 85335- 1838 Apr, Cigarette nicotine dependence without complication F17.210 [place] [address] [place] [id number] [place] [address] 45788- 1116 Apr, [facility] [address] [place] [id number] [place] [address] 63463- 5148 Apr, Migraine without aura and without status migrainosus, not intractable G43.009 [place] [address] [place] [address] 57473- 5289 Apr, Migraine without aura and without status migrainosus, not intractable G43.009 [place] [address] [place] [id number] [place] [address] 32313- 2530 Mar, Schizoaffective disorder, depressive type F25.1 ; BMI 45.0- 49.9, adult Z68.42 and BMI 40.0-44.9, adult Z68.41 [place] [address] [place] [id number] [place] [address] 90519- 2225 Mar, Primary insomnia F51.01 [place] [address] [place] [id number] [place] [address] 66938- 2069 Mar, [place] [address] [place] [id number] [place] [address] 45282- 6145 Feb, Primary insomnia F51.01 [place] [address] 85142- 9391 Feb, [place] [address] [place] [id number] [place] [address] 58316- 3940 Jan, Schizoaffective disorder, depressive type F25.1 and BMI 45.0 -49.9, adult Z68.42 [place] [address] [place] [id number] [place] [address] 05144- 2117 Jan, [place] [address] 43489- 8943 Jan, Type 2 diabetes mellitus with diabetic neuropathic arthropathy, 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 ; Menopausal syndrome (hot flashes) N95.1 and BMI 40.0-44.9, adult Z68.41 [place] [address] [place] [id number] [place] [address] 67926- 4056 Jan, Paranoid schizophrenia F20.0 [place] [address] [place] [id number] [place] [address] 40932- 2215 Jan, [place] [address] [place] [id number] [place] [address] 28846- 4749 Jan, Schizoaffective disorder, depressive type F25.1 [place] [address] [place] [id number] [place] [address] 22960- 1565 Jan, [place] [address] [place] [id number] [place] [address] 94966- 5303 02 Jan, 2018 Chronic obstructive pulmonary disease, unspecified COPD type J44.9 ; BMI 45.0-49.9, adult Z68.42 ; Type 2 diabetes mellitus without complication, without long-term current use of insulin E11.9 ; Hypothyroidism ( acquired) E03.9 ; Encounter for immunization Z23 ; Gastroesophageal reflux disease without esophagitis K21.9 ; Primary insomnia F51.01 and Acute nasopharyngitis J00 [facility] [address] [place] [address] 73936- 8606 27 Dec, 2017 [facility] [address] [place] [id number] [place] [address] 28437- 5869 21 Dec, 2017 Schizoaffective disorder, depressive type F25.1 and BMI 45.0 -49.9, adult Z68.42 [facility] [address] [place] [id number] [place] [address] 85599- 6978 Dec, [facility] [address] [place] [id number] [place] [address] 25374- 7595 18 Dec, 2017 [facility] [address] [place] [id number] [place] [address] 03071- 6670 18 Dec, 2017 Acute non-recurrent frontal sinusitis J01.10 [facility] [address] [place] [id number] [place] [address] 99622- 0308 18 Dec, 2017 Acute non-recurrent frontal sinusitis J01.10 ; Weakness of left leg R29.898 ; At high risk for falls Z91.81 and BMI 45.0-49.9, adult Z68.42 [facility] [address] [place] [id number] [place] [address] 57064- 0773 17 Dec, 2017 [facility] [address] [place] [address] 72149- 1816 17 Dec, 2017 [facility] [address] [place] [id number] [place] [address] 37777- 1639 10 Dec, 2017 Schizoaffective disorder, depressive type F25.1 [facility] [id number] [place] [address] 87765 -9476 10 Dec, [address] [facility] [address] [place] [id number] [place] [address] 40078- 2939 05 Dec, 2017 Schizoaffective disorder, depressive type F25.1 [facility] [address] [place] [id number] [place] [address] 31557- 2341 Dec, [place] [address] [address]- 2297 Nov, Schizoaffective disorder, depressive type F25.1 and BMI 45.0 -49.9, adult Z68.42 [place] [address] [address]- 6966 Nov, [place] [address] [place] [id number] [place] [address] 53636- 4559 Nov, [place] [address] [place] [address] 83923- 1193 Nov, Schizoaffective disorder, depressive type F25.1 [place] [address] [place] [id number] [place] [address] 00978- 4404 Nov, Well woman exam Z01.419 ; BMI 45.0-49.9, adult Z68.42 ; Screening breast examination Z12.31 and Dietary counseling and surveillance Z71.3 [place] [address] [address]- 7204 Nov, Paranoid schizophrenia F20.0 [place] [id number] [place] [address] 63580- 7130 Nov, Gastroesophageal reflux disease, esophagitis presence not specified K21.9 [place] [address] [address]- 3768 Oct, Paranoid schizophrenia F20.0 [facility] [id number] [place] [address] Oct Chronic pain syndrome G89.4 and Schizoaffective disorder, depressive type F25.1 [place] [address] [address]- 1417 Oct, Chronic pain syndrome G89.4 and Schizoaffective disorder, depressive type F25.1 [place] [address] [address]- 6648 Oct, Type 2 diabetes mellitus without complication, without long- term current use of insulin E11.9 [place] [address] [place] [id number] [place] [address] 80102- 1406 12 Oct, 2017 Essential hypertension I10 and DM neuro manif type II E11.49 [place] [address] [place] [id number] [place] [address] 40240- 8005 Oct, [place] [address] [place] [id number] [place] [address] 27440- 6930 Oct, Schizoaffective disorder, depressive type F25.1 and BMI 45.0 -49.9, adult Z68.42 [place] [address] 30205- 6948 Oct, [place] [address] [place] [id number] [place] [address] 27807- 8800 Oct, Paranoid schizophrenia F20.0 [place] [address] [place] [id number] [place] [address] 19546- 1537 Oct, Type 2 diabetes mellitus with diabetic neuropathic arthropathy, 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 ; Essential hypertension I10 ; Hypothyroidism (acquired) E03.9 ; Chronic obstructive pulmonary disease, unspecified COPD type J44.9 and Diabetic polyneuropathy associated with type 2 diabetes mellitus E11.42 [place] [address] [place] [id number] [place] [address] 42617- 2761 Sep, Paranoid schizophrenia F20.0 [place] [address] [place] [id number] [place] [address] 82910- 2844 Sep, Paranoid schizophrenia F20.0 and BMI 45.0-49.9, adult Z68.42 [place] [address] [place] [id number] [place] [address] 84581- 3523 Sep, Schizoaffective disorder, depressive type F25.1 [place] [address] [place] [id number] [place] [address] 85795- 3315 Sep, [place] [address] [place] [id number] [place] [address] 51996- 2778 Sep, Paranoid schizophrenia F20.0 [facility] [address] [place] [id number] [place] [address] 57051- 0068 Sep, [facility] [address] [place] [id number] [place] [address] 16579- 0417 Sep, Hypothyroidism (acquired) E03.9 [facility] [address] [place] [id number] [place] [address] 33810- 8346 Sep, [facility] [address] [place] [id number] [place] [address] 28857- 6467 August, Schizoaffective disorder, depressive type F25.1 [facility] [address] [place] [id number] [place] [address] 79390- 1421 August, [facility] [address] [place] [id number] [place] [address] 52573- 8805 August, [facility] [address] [place] [id number] [place] [address] 90034- 0352 August, [facility] [address] [place] [id number] [place] [address] 02845- 1220 August, Paranoid schizophrenia F20.0 [facility] [address] [place] [id number] [place] [address] 94289- 2349 August, History of lupus Z87.39 and Chronic pain syndrome G89.4 [facility] [address] [place] [id number] [place] [address] 68185- 6371 August, [facility] [address] [place] [address] 18172 -5613 August, Seasonal allergic rhinitis, unspecified trigger J30.2 and BMI 45.0-49.9, adult Z68.42 [facility] [address] [address]- 3505 Jul, Schizoaffective disorder, depressive type F25.1 [facility] [address] [place] [address]- 0369 19 Jul, 2017 [facility] [address] 40127- 6074 13 Jul, 2017 Hypothyroidism (acquired) E03.9 [facility] [address] 83483- 4315 11 Jul, 2017 Chronic obstructive pulmonary disease, unspecified COPD type J44.9 and Type 2 diabetes mellitus without complication, without long-term current use of insulin E11.9 [facility] [address] 82417- 4596 10 Jul, 2017 Paranoid schizophrenia F20.0 [place] [address] 64413- 9903 Jun, Hypothyroidism (acquired) E03.9 and Seasonal allergic rhinitis due to pollen J30.1 [facility] [address] 20886 -2539 Jun, Shortness of breath at rest R06.02 ; COPD exacerbation J44.1 and BMI 45.0-49.9, adult Z68.42 [place] [address] 86720- 1036 Jun, [facility] [address] 73909- 6910 Jun, Paranoid schizophrenia F20.0 ; Depression with anxiety F41.8 and BMI 45.0-49.9, adult Z68.42 [facility] [address] [place] [id number] [place] [address] 58943- 3890 Jun, Schizoaffective disorder, depressive type F25.1 [facility] [address] [id number] 13 Jun, [address] [facility] [address] 73322- 9227 12 Jun, [address] [facility] [address] [place] [address] 37175- 1203 May, Migraine without aura and without status migrainosus, not intractable G43.009 ; DM neuro manif type II E11.49 and Type 2 diabetes mellitus without complication, without long-term current use of insulin E11.9 [facility] [address] [place] [id number] [place] [address] 65990- 0315 May, Migraine without aura and without status migrainosus, not intractable G43.009 [facility] [address] [place] [id number] [place] [address] 53038- 8426 May, Depression with anxiety F41.8 [facility] [address] [id number] May, [place] [address] 81229- 3829 May, [place] [address] 96069- 5844 May, [place] [address] [place] [id number] [place] [address] 41846- 5521 May, Hypothyroidism (acquired) E03.9 [place] [address] [place] [id number] [place] [address] 29179- 6678 May, Paranoid schizophrenia F20.0 [place] [address] [place] [address] [place] [address] 63187- 0047 May, Type 2 diabetes mellitus without complication, [...] N32.81 and Controlled substance agreement signed Z79.899 [facility] [address] [place] [id number] [place] [address] 49063- 5536 02 May, 2017 Controlled substance agreement signed Z79.899 [facility] [address] [place] [id number] [place] [address] 01612- 0734 Apr, [facility] [address] [id number] Apr, Dental examination Z01.20 [facility] [address] 98917- 6124 Apr, Paranoid schizophrenia F20.0 [facility] [address] [place] [id number] [place] [address] 12965- 7184 Apr, Hypertension, unspecified type I10 [facility] [address] [place] [id number] [place] [address] 69858- 6498 Apr, Paranoid schizophrenia F20.0 [facility] [address] [place] [id number] [place] [address] 54754- 6915 Apr, [facility] [address] [place] [id number] [place] [address] 44219- 0850 Apr, Tobacco abuse Z72.0 [facility] [address] [place] [id number] [place] [address] 84459- 9991 Apr, [facility] [address] [id number] [place] [address] 18812- 8987 Mar, [facility] [address] [place] [id number] [place] [address] 62529- 5659 Mar, Paranoid schizophrenia F20.0 and BMI 45.0-49.9, adult Z68.42 [facility] [address] [id number] [place] [address] 89955- 7969 Mar, Schizoaffective disorder, depressive type F25.1 [facility] [address] 19584- 0218 14 Mar, 2017 [place] [address] 32877- 2085 Mar, Hypothyroidism, unspecified type E03.9 [place] [address] 37873- 2633 Mar, Schizoaffective disorder, depressive type F25.1 [facility] [address] 01014 -3324 Feb, Gastroenteritis K52.9 and BMI 45.0-49.9, adult Z68.42 [place] [address] 25352- 9819 Feb, [place] [address] 16191- 7874 Feb, [place] [address] 41506- 7903 Feb, [place] [address] 68[address] Feb, [place] [address] [address] Feb, Paranoid schizophrenia F20.0 [place] [address] [address] Feb, Gastroesophageal reflux disease without esophagitis K21.9 ; Other seasonal allergic rhinitis J30.2 ; Other allergic rhinitis J30.89 ; Tobacco abuse Z72.0 and BMI 40.0-44.9, adult Z68.41 [place] [address] [address] Feb, Onychomycosis B35.1 ; Callus of foot L84 and DM neuro manif type II E11.49 [place] [address] [address] Jan, Chronic allergic rhinitis J30.9 [place] [address] [address] [place] [id number] [place] [address] 16 Jan, 2017 [facility] [address] [address] Jan, Schizoaffective disorder, depressive type F25.1 [facility] [address] [address] 10 Jan, 2017 [facility] [address] [address] 07 Jan, 2017 Sore throat J02.9 and Seasonal allergic rhinitis due to other allergic trigger J30.89 [place] [address] [address] [address] [address]- [address] Jan, [place] [address] 99353- 4158 Jan, [facility] [address] 69669 -0258 Jan, Chronic allergic rhinitis J30.9 [facility] [address] [place] [id number] [place] [address] 67452- 6813 27 Dec, 2016 Paranoid schizophrenia F20.0 ; Primary insomnia F51.01 and Schizoaffective disorder, depressive type F25.1 [place] [address] [place] [id number] [place] [address] 21954- 2231 21 Dec, 2016 Chronic pain syndrome G89.4 ; Cervicalgia of occipito- atlanto-axial region M54.2 ; Menopausal syndrome (hot flashes) N95.1 and Encounter for immunization Z23 [facility] [address] [place] [id number] [place] [address] 48211- 8625 14 Dec, 2016 [place] [address] 77999- 2984 13 Dec, 2016 [facility] [address] [place] [id number] [place] [address] 32224- 5161 08 Dec, 2016 Paranoid schizophrenia F20.0 [place] [id number] [place] [address] 33835- 0455 Dec, Schizoaffective disorder, depressive type F25.1 [place] [address] [place] [id number] [place] [address] 35959- 4455 Nov, Hypothyroidism, unspecified type E03.9 [facility] [address] [place] [place] [id number] [place] [address] 53706 -6205 Nov, Acute seasonal allergic rhinitis due to other allergen J30.89 [place] [address] [place] [id number] [place] [address] 46269- 8267 Nov, [place] [address] 78908- 6149 Nov, Hypothyroidism, unspecified type E03.9 and Other elevated white blood cell (WBC) count D72.828 [place] [address] [place] [id number] [place] [address] 32063- 8281 Nov, Schizoaffective disorder, depressive type F25.1 [place] [address] [place] [id number] [place] [address] 29583- 8194 Nov, Paranoid schizophrenia F20.0 [place] [address] [place] [id number] [place] [address] 41735- 0162 Nov, Type 2 diabetes mellitus without complication, without long- term current use of insulin E11.9 ; Morbid obesity due to excess calories E66.01 and Chronic pain syndrome G89.4 [place] [address] [place] [id number] [place] [address] 12791- 0477 Oct, Paranoid schizophrenia F20.0 [place] [address] [place] [id number] [place] [address] 55111- 1010 Oct, [place] [address] [place] [id number] [place] [address] 25928- 7573 Oct, Schizoaffective disorder, depressive type F25.1 [place] [address] [place] [id number] [place] [address] 24080- 5749 Oct, Hypothyroidism, unspecified type E03.9 and Other elevated white blood cell (WBC) count D72.828 [facility] [address] [place] [id number] [place] [address] 41000- 5069 Oct, Morbid obesity due to excess calories E66.01 ; Chronic obstructive pulmonary disease, unspecified COPD type J44.9 ; History of lupus Z87.39 ; Hypothyroidism, unspecified type E03.9 ; Gastroesophageal reflux disease without esophagitis K21.9 ; Primary insomnia F51.01 and Chronic pain syndrome G89.4 [facility] [address] [place] [id number] [address] 1847 Sep, [place] [address] [place] [id number] [place] [address] 02222- 5392 Sep, [place] [address] [place] [id number] [place] [address] 97328- 0153 Sep, [facility] [id number] [place] [address] 79846- 9617 Sep, Paranoid schizophrenia F20.0 [facility] [address] [place] [id number] [place] [address] 34134- 3079 Sep, [facility] [address] [place] [id number] [place] [address] 16023- 8949 Sep, Paranoid schizophrenia F20.0 [facility] [address] [place] [id number] [place] [address] 51494- 5113 Sep, [facility] [id number] [place] [address] 98482- 7722 August, Paranoid schizophrenia F20.0 [facility] [id number] [place] [address] 85574- 9520 Jul, [facility] [id number] [place] [address] 79169- 2141 Jul, Type 2 diabetes mellitus without complication, without long- term current use of insulin E11.9 ; Morbid obesity due to excess calories E66.01 ; Depression with anxiety F41.8 ; Hypothyroidism, unspecified type E03.9 ; Seasonal allergic rhinitis due to other allergic trigger J30.89 ; Pain, dental K08.89 and Gastroesophageal reflux disease without esophagitis K21.9 [facility] [address] [id number] 12 Jul, 2016 Dental examination Z01.20 [place] [address] [place] [id number] [place] [address] 17112- 7170 07 Jul, 2016 Paranoid schizophrenia F20.0 [place] [address] [place] [id number] [place] [address] 48596- 9491 13 Jun, 2016 Paranoid schizophrenia F20.0 and Depression with anxiety F41.8 [place] [address] [place] [id number] [place] [address] 08242- 9383 Jun, Paranoid schizophrenia F20.0 and Depression with anxiety F41.8 [place] [address] [place] [id number] [place] [address] 32834- 9254 Jun, [place] [address] [place] [id number] [place] [address] 93276- 4040 Jun, [facility] [place] [id number] [place] [address] 04390 -1331 Jun, Seasonal allergic rhinitis due to other allergic trigger J30.89 [facility] [address] [place] [id number] [place] [address] 82263 -9902 May, Sore throat J02.9 ; Other viral agents as the cause of diseases classified elsewhere B97.89 and Acute upper respiratory infection, unspecified J06.9 [place] [address] [place] [id number] [place] [address] 12337- 6630 May, Paranoid schizophrenia F20.0 and Depression with anxiety F41.8 [place] [address] [place] [address] 86473- 5042 Apr, Other seasonal allergic rhinitis J30.2 [place] [address] [place] [id number] [place] [address] 52584- 8423 Apr, Paranoid schizophrenia F20.0 and Depression with anxiety F41.8 [facility] [address] [place] [id number] [place] [address] 53186 -8726 Apr, Bronchitis J40 and Sore throat J02.9 [place] [address] [place] [id number] [place] [address] 59115- 0734 Apr, Type 2 diabetes mellitus without complication, without long- term current use of insulin E11.9 [facility] [address] [place] [id number] [place] [address] 93752 -4824 Apr, Bronchitis J40 [place] [address] 19650- 0433 Apr, [place] [address] [place] [id number] [place] [address] 86678- 6092 Apr, [place] [address] [place] [id number] [place] [address] 47428- 1002 Mar, Type 2 diabetes mellitus without complication, [...] R60.9 and Other seasonal allergic rhinitis J30.2 [place] [address] [place] [id number] [place] [address] 76908- 9451 Mar, Paranoid schizophrenia F20.0 and Depression with anxiety F41.8 [place] [address] [place] [id number] [place] [address] 17801- 1360 Feb, [place] [address] [place] [id number] [place] [address] 50353- 7427 Feb, [address] [place] [address]- 70[address] Feb, [facility] [address] [place] [id number] [place] [address] 53094- 4985 Feb, [facility] [address] [place] [id number] [place] [address] 85515- 7093 Feb, Type 2 diabetes mellitus without complication, without long- term current use of insulin E11.9 ; ARIAS on CPAP G47.33 and Preoperative evaluation to rule out surgical contraindication Z01.818 [facility] [address] [place] [id number] [place] [address] 16891- 5892 09 Feb, 2016 Paranoid schizophrenia F20.0 and Depression with anxiety F41.8 [facility] [address] [place] [id number] [place] [address] 29469- 8295 Jan, [facility] [address] [place] [id number] [place] [address] 35853- 8701 Jan, Paranoid schizophrenia F20.0 and Depression with anxiety F41.8 [facility] [address] [place] [id number] [place] [address] 02795- 2611 Jan, [facility] [address] [place] [id number] [place] [address] 22019- 8528 Jan, Muscle strain T14.8 [facility] [address] [place] [id number] [place] [address] 88812- 6702 Jan, Paranoid schizophrenia F20.0 [facility] [address] [place] [id number] [place] [address] 27464- 0155 Jan, [facility] [id number] [place] [address] 20118- 3726 Jan, Paranoid schizophrenia F20.0 and Depression with anxiety F41.8 [facility] [address] [address]- 6897 Jan, [facility] [address] [place] [id number] [place] [address] 06015- 0941 Jan, [facility] [address] [address]- 6789 28 [address], 2015 [facility] [address] [place] [id number] [place] [address] 91012- 7788 23 Dec, [address] [facility] [id number] [place] [address] 32189- 9403 16 Dec, 2015 Paranoid schizophrenia F20.0 and Depression with anxiety F41.8 [facility] [address] [place] [id number] [place] [address] 94208- 4077 Nov, [place] [address] [place] [id number] [place] [address] 93571- 9442 Nov, Paranoid schizophrenia F20.0 [place] [address] [place] [id number] [place] [address] 66589- 3038 Nov, Paranoid schizophrenia F20.0 and Depression with anxiety F41.8 [place] [address] [place] [address] 61005- 7411 Nov, Type 2 diabetes mellitus without complication, without long- term current use of insulin E11.9 ; Paranoid schizophrenia F20.0 ; Chronic obstructive pulmonary disease, unspecified COPD type J44.9 ; Morbid obesity due to excess calories E66.01 and Parkinsonian tremor G20 [facility] [address] [address]- 4199 Nov, [facility] [address], [place] [address]- 8037 Oct, Paranoid schizophrenia F20.0 [facility] [address], [place] [address]- 0457 Oct, Paranoid schizophrenia F20.0 [facility] [address] [address]- 6751 Oct, Paranoid schizophrenia F20.0 and Depression with anxiety F41.8 [facility] [address] [place] [id number] [place] [address] 90703- 5934 Oct, [place] [id number] [place] [address] 02186- 9387 Oct, Paranoid schizophrenia F20.0 and Depression with anxiety F41.8 [place] [id number] [place] [address] 84208- 7364 Oct, Nasal sore J34.89 [place] [address] [place] [id number] [place] [address] 75603- 3213 Oct, Type 2 diabetes mellitus without complication, without long- term current use of insulin E11.9 ; Depression with anxiety F41.8 ; Hypothyroidism, unspecified type E03.9 and History of lupus Z87.39 [place] [address] [place] [id number] [place] [address] 39903- 9772 Oct, [place] [address] [place] [id number] [place] [address] 03824- 4699 Oct, Type 2 diabetes mellitus without complication, [...] edema R60.9 and History of lupus Z87.39 [place] [address] [address]- 0535 Feb, [place] [address] [place] [id number] [place] [address] 55191- 2888 Jan, [place] [id number] [place] [address] 04353- 3784 Jan, [place] [address] [place] [id number] [place] [address] 08291- 5856 Jan, [facility] [address] [facility] [id number] [place] [address]- 4751 Dec, [facility] [address] [place] [address]- 2642 Nov, [facility] [address] [facility] [id number] [place] [address]- 9728 Nov, [facility] [address] [place] [id number] [place] [address], [place] [address]- [address] Oct, [facility] [address] [place] [id number] [place] [address]- 6[address] Oct, [facility] [address] [place] [address]- 8509 Oct, [facility] [address] [place] [address]- 1617 Sep, Allergic rhinitis 477.9 [facility] [address] [address]- 8361 Sep, Rhinitis, allergic 477.9 [facility] [address] [address]- 5425 Sep, Rhinitis, allergic 477.9 [facility] [address] [address]- 3761 Sep, [facility] [address] [address] 3953 August, [facility] [address] [place] [id number] [address]- 7754 August, [facility] [address] [place] [address]- 7452 August, [facility] [address] [place] [id number] [address] 6440 Jul, [facility] [address] [place] [id number] 7606 Jul, [facility] [place] [facility] [address] [id number] [place] [address]- 8580 13 Jul, 2014 [facility] [place] [facility] [address] [id number] [place] [address]- 6630 16 Jun, 2014 [facility] [place] [facility] [address] [id number] [place] [address]- 5945 16 Jun, 2014 [facility] [place] [facility] [address] [id number] [place] [address]- 3704 Jun, [facility] [place] [facility] [address] [id number] [place] [address]- 7966 Jun, [facility] [place] [facility] [address] [id number] [place] [address]- 5867 Jun, [facility] [place] [facility] [address] [id number] [place] [address]- 8061 Jun, [facility] [place] [facility] [address] [id number] [place] [address]- 1434 Jun, [facility] [place] [facility] [address] [id number] [place] [address]- 6490 Jun, [facility] [place] [facility] [address] [id number] [place] [address]- 7957 May, [facility] [place] [facility] [address] [id number] [place] [address]- 0412 May, [facility] [place] [facility] [address] [id number] [place] [address]- 7995 May, [facility] [place] [facility] [address] [id number] [place] [address]- 8470 May, [facility] [place] [facility] [address] [id number] [place] [address]- 9256 Apr, [facility] [place] [facility] [address] [id number] [place] [address]- 8865 Mar, [facility] [place] [facility] [address] [id number] [place] [address]- 7408 Mar, [facility] [place] [facility] [address] [id number] [place] [address]- 6911 Mar, [facility] [place] [facility] [address] [id number] [place] [address]- 6375 Mar, [facility] [place] [facility] [address] [id number] [place] [address]- 2904 Mar, [facility] [place] [facility] [address] [id number] [place] [address]- 4529 Mar, [facility] [place] [facility] [address] [id number] [place] [address]- 3669 Mar, [facility] [place] [facility] [address] [id number] [place] [address]- 7119 Mar, [facility] [place] [facility] [address] [id number] [place] [address]- 5028 Mar, [facility] [place] [facility] [address] [id number] [place] [address]- 2639 Feb, [facility] [place] [facility] [address] [id number] [place] [address]- 1357 Feb, [facility] [place] [facility] [address] [id number] [place] [address]- 3906 Feb, [facility] [place] [facility] [address] [id number] [place] [address]- 8345 17 Feb, 2014 [facility] [place] [facility] [address] [id number] [address]- 6868 Feb, [facility] [place] [facility] [address] [id number] [place] [address]- 1898 14 Feb, 2014 [facility] [place] [facility] [address] [id number] [place] [address]- 1264 Feb, [facility] [place] [facility] [address] [id number] [place] [address]- 9729 Feb, [facility] [place] [facility] [address] [id number] [place] [address]- 4219 23 Jan, 2014 [facility] [place] [facility] [address] [id number] [place] [address]- 9917 23 Jan, 2014 [facility] [place] [facility] [address] [id number] [place] [address]- 8667 16 Jan, 2014 [facility] [place] [facility] [address] [id number] [place] [address]- 8753 16 Jan, 2014 [facility] [place] [facility] [address] [id number] [place] [address]- 4299 15 Jan, 2014 [facility] [place] [facility] [address] [id number] [place] [address]- 5978 15 Jan, 2014 [facility] [place] [facility] [address] [id number] [place] [address]- 7555 14 Jan, 2014 [facility] [place] [facility] [address] [id number] [place] [address]- 9158 14 Jan, 2014 [facility] [place] [facility] [address] [id number] [place] [address]- 0887 14 Jan, 2014 [facility] [place] [facility] [address] [id number] [place] [address]- 4037 14 Jan, 2014 [facility] [place] [facility] [address] [id number] [place] [address]- 0277 18 Dec, 2013 [facility] [place] [facility] [address] [id number] [place] [address]- 9207 18 Dec, 2013 [facility] [place] [facility] [address] [id number] [place] [address]- 3817 10 Dec, 2013 [facility] [place] [facility] [address] [id number] [place] [address]- 2546 10 Dec, 2013 [facility] [place] [facility] [address] [id number] [place] [address]- 5045 22 Nov, 2013 [facility] [place] [facility] [address] [id number] [place] [address]- 7335 Nov, [facility] [place] [facility] [address] [id number] [place] [address]- 4255 Nov, [facility] [place] [facility] [address] [id number] [place] [address]- 3649 Nov, [facility] [place] [facility] [address] [id number] [place] [address]- 4302 Nov, [facility] [place] [facility] [address] [id number] [place] [address]- 5381 Oct, [facility] [place] [facility] [address] [id number] [place] [address]- 8713 Oct, [facility] [place] [facility] [address] [id number] [place] [address]- 5327 Oct, [facility] [place] [facility] [address] [id number] [place] [address]- 6993 Oct, [facility] [place] [facility] [address] [id number] [place] [address]- 0874 Sep, [facility] [place] [facility] [address] [id number] [place] [address]- 1804 Sep, [facility] [place] [facility] [address] [id number] [place] [address]- 6005 Sep, [facility] [place] [facility] [address] [id number] [address]- 0645 Sep, [facility] [place] [facility] [address] [id number] [address]- 4829 Sep, [facility] [place] [facility] [address] [id number] [place] [address]- 2993 Sep, [facility] [place] [facility] [address] [id number] [place] [address]- 1156 Sep, [facility] [place] [facility] [address] [id number] [place] [address]- 3390 Sep, [facility] [place] [facility] [address] [id number] [place] [address]- 5262 August, [facility] [address] [id number] [place] [address] August, [facility] [place] [facility] [address] [id number] [place] [address] August, [facility] [address] [id number] [place] [address] August, [facility] [place] [facility] [address] [id number] [place] [address] August, [facility] [place] [facility] [address] [id number] [place] [address] August, [facility] [place] [facility] [address] [id number] [place] [address] August, [facility] [address] [id number] [place] [address] Jul, [facility] [place] [facility] [address] [id number] [place] [address] Jul, [facility] [place] [facility] [address] [id number] [place] [address] Jul, [facility] [address] [id number] [place] [address] Jul, [facility] [place] [facility] [address] [id number] [place] [address] Jul, [facility] [place] [facility] [address] [id number] [place] [address] Jul, [facility] [place] [facility] [address] [id number] [place] [address] Jul, [facility] [place] [facility] [address] [id number] [place] [address] Jul, [facility] [place] [facility] [address] [id number] [place] [address] Jul, [facility] [place] [facility] [address] [id number] [place] [address] Jul, [facility] [place] [facility] [address] [id number] [place] [address] Jul, [facility] [place] [facility] [address] [id number] [place] [address] Jul, [facility] [place] [facility] [address] [id number] [place] [address] Jun, [facility] [place] [facility] [address] [id number] [place] [address] Jun, [facility] [place] [facility] [address] [id number] [place] [address] Jun, [facility] [place] [facility] [address] [id number] [place] [address] Jun, [facility] [place] [facility] [address] [id number] [place] [address] Jun, [facility] [place] [facility] [address] [id number] [place] [address] May, [facility] [place] [facility] [address] [id number] [place] [address] May, [facility] [place] [facility] [address] [id number] [place] [address] May, [facility] [place] [facility] [address] [id number] [place] [address] May, [facility] [place] [facility] [address] [id number] [place] [address] May, [facility] [place] [facility] [address] [id number] [place] [address] May, [facility] [place] [facility] [address] [facility] [id number] [place] [address] May, [facility] [place] [facility] [address] [id number] [place] [address] May, [facility] [address] [id number] [place] [address] Mar, [facility] [place] [facility] [address] [id number] [place] [address] Mar, [facility] [address] [id number] [place] [address] Mar, [facility] [place] [facility] [address] [id number] [place] [address] Mar, [facility] [address] [id number] [place] Mar, [facility] [place] [facility] [address] [id number] [place] [address] Mar, [facility] [facility] [address] [id number] [place] [address] Feb, [facility] [place] [facility] [address] [id number] [place] [address] Feb, [facility] [place] [facility] [address] [id number] [place] [address] Jan, [facility] [place] [facility] [address] [id number] [place] [address] Jan, [facility] [place] [facility] [address] [id number] [place] [address] Jan, [facility] [place] [facility] [address] [id number] [address] Jan, [facility] [place] [facility] [address] [id number] [place] [address] Jan, [facility] [place] [facility] [address] [id number] [place] [address] Jan, [facility] [place] [facility] [address] [id number] [address] Jan, [facility] [place] [facility] [address] [id number] [place] [address] Jan, [facility] [address] [id number] [place] [address] Jan, [facility] [place] [facility] [address] [id number] [place] [address] Jan, [facility] [place] [facility] [address] [id number] [place] [address] Dec, [facility] [address] [id number] [place] [address] Nov, [facility] [place] [facility] [address] [id number] [place] [address] Nov, [facility] [address] [id number] [place] [address] Nov, [facility] [address] [id number] [place] [address] Oct, [facility] [address] [id number] [place] [address] Oct, [facility] [address] [id number] [place] [address] August, [facility] [address] [id number] [place] [address] Apr, [facility] [address] [id number] [place] [address] Apr, [facility] [place] [facility] [address] [id number] [place] [address] Feb, [facility] [place] [facility] [address] [id number] [place] [address] Feb, [facility] [place] [facility] [address] [id number] [place] [address] Dec, [facility] [place] [facility] [address] [id number] [place] [address] Dec, [facility] [address] [facility] [id number] [place] [address] Oct, [facility] [address] [facility] [id number] [address] Oct, [facility] [address] [facility] [id number], [place] [address] Oct, [facility] [address] [facility] [id number], [place] [address] Jul, IMMUNIZATIONS No Known Immunizations SOCIAL HISTORY Never Assessed REASON FOR VISIT EMR-[facility] PLAN OF CARE VITAL SIGNS MEDICATIONS Unknown [...] for psychosis/mental illness , last one in [place] at [facility] 4 years ago
--- OUTSIDE RECORDS SUMMARY | 2018-09-02 13:04 | XMS REPORT ---
Author Author Migration, Doctor Organization [facility] Address Unknown Phone Unavailable Care Team Providers Care Supervisor Uranium Processing Name Role Phone Migration, Doctor Unavailable Unavailable PROBLEMS Type Condition ICD9-CM Code OCE82-QV Code Onset Dates Condition Status SNOMED Code Problem History of lupus Z87.39 Active 081900746 Problem OAB (overactive bladder) N32.81 Active 831358393 Problem Chronic pain syndrome G89.4 Active 185847813 Problem Type 2 diabetes mellitus without complication, without long-term current use of insulin E11.9 Active 788020729 Problem Depression with anxiety F41.8 Active 981552464 Problem Paranoid schizophrenia F20.0 Active 15242147 Problem Essential hypertension I10 Active 81064572 Problem Dyslipidemia E78.5 Active 306046742 Problem Schizoaffective disorder, depressive type F25.1 Active 45668442 Problem Seasonal allergic rhinitis due to other allergic trigger J30.89 Active 353166274 Problem DM neuro manif type II E11.49 Active 29560167 Problem Primary insomnia F51.01 Active 6340875 Problem Other allergic rhinitis J30.89 Active 045278917 Problem Menopausal syndrome (hot flashes) N95.1 Active 921051899 Problem Tobacco abuse Z72.0 Active 431639380 Problem Other seasonal allergic rhinitis J30.2 Active 433985163 Problem Hypothyroidism (acquired) E03.9 Active 848771193 Problem Gastroesophageal reflux disease, esophagitis presence not specified K21.9 Active 823940244 Problem Migraine without aura and without status migrainosus, not intractable G43.009 Active 483944334 Problem Cigarette nicotine dependence without complication F17.210 Active 01659387 Problem Morbid obesity due to excess calories E66.01 Active 934359399 Problem Allergic rhinitis, unspecified seasonality, unspecified trigger J30.9 Active 08623355 Problem Chronic obstructive pulmonary disease, unspecified COPD type J44.9 Active 64449196 Problem Gastroesophageal reflux disease without esophagitis K21.9 Active 393157547 Problem COPD exacerbation J44.1 Active 074751138 Problem Seasonal allergic rhinitis due to pollen J30.1 Active 49093589 Problem Diabetic polyneuropathy associated with type 2 diabetes mellitus E11.42 Active 652410297 Problem Type 2 diabetes mellitus with diabetic neuropathic arthropathy, 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 Active 783885402 ALLERGIES No Information ENCOUNTERS Encounter Location Date Diagnosis [place] [address] [place] [address] 99860- 9881 Sep, [place] [address] [place] [id number] [place] [address] 63058- 8227 Jul, [place] [address] [place] [id number] [place] [address] 52419- 7151 Jul, Cigarette nicotine dependence without complication F17.210 [place] [address] [place] [id number] [place] [address] 76298- 1431 Jul, Type 2 diabetes mellitus without complication, without long- term current use of insulin E11.9 and Hypothyroidism (acquired) E03.9 [place] [address] [place] [id number] [place] [address] 98988- 7604 Jul, Encounter for Medicare annual wellness exam Z00.00 ; Morbid obesity due to excess calories E66.01 ; Diabetic polyneuropathy associated with type 2 diabetes mellitus E11.42 ; Chronic obstructive pulmonary disease, unspecified COPD type J44.9 ; Schizoaffective disorder, depressive type F25.1 and Hypothyroidism (acquired) E03.9 [place] [address] [place] [address] 85027- 3557 Jun, Gastroesophageal reflux disease without esophagitis K21.9 [place] [address] [place] [id number] [place] [address] 96771- 5326 Jun, Paranoid schizophrenia F20.0 [place] [address] [place] [id number] [place] [address] 31346- 7121 Jun, Schizoaffective disorder, depressive type F25.1 [place] [address] [place] [id number] [place] [address] 46069- 1297 Jun, [place] [address] [place] [address] [address] 1849 20 Jun, 2018 Schizoaffective disorder, depressive type F25.1 [facility] [address] [place] [address] [id number] [place] [address] 86116- 5422 Jun, Cigarette nicotine dependence without complication F17.210 [facility] [address] [place] [id number] [place] [address] 09054- 4408 18 Jun, 2018 Type 2 diabetes mellitus without complication, without long- term current use of insulin E11.9 [facility] [address] [place] [address] 57113- 8164 15 Jun, 2018 [facility] [address] [place] [id number] [place] [address] 41983- 9532 Jun, [facility] [address] [place] [id number] [place] [address] 92538- 0880 Jun, [facility] [address] [id number] [place] [address] 00109- 6491 Jun, [facility] [address] [place] [id number] [place] [address] 54932- 1996 Jun, [facility] [address] [place] [id number] [place] [address] 42288- 5038 Jun, Paranoid schizophrenia F20.0 ; Type 2 diabetes mellitus without complication, without long-term current use of insulin E11.9 ; Hypothyroidism (acquired) E03.9 and Morbid obesity E66.01 [facility] [address] [place] [address] 93550- 2353 May, Paranoid schizophrenia F20.0 [facility] [address] [place] [id number] [place] [address] 91001- 5231 May, Hypothyroidism (acquired) E03.9 and Dyslipidemia E78.5 [facility] [address] [place] [address] 31580- 2647 May, Cigarette nicotine dependence without complication F17.210 [facility] [address] [place] [id number] [place] [address] 85792- 4178 18 May, 2018 [facility] [address] 79600- 4233 14 May, 2018 Type 2 diabetes mellitus without complication, without long- term current use of insulin E11.9 ; Essential hypertension I10 ; Hypothyroidism (acquired) E03.9 and Dyslipidemia E78.5 [facility] [address] 67853- 5414 May, [facility] [address] 19755- 0251 May, Schizoaffective disorder, depressive type F25.1 [place] [address] 56806- 3640 May, Paranoid schizophrenia F20.0 [place] [address] 34919- 6700 May, [facility] [address] [place] [address] May, [facility] [address] 67125- 0976 May, [facility] [address] 97549- 9525 May, Type 2 diabetes mellitus without complication, without long- term current use of insulin E11.9 ; Essential hypertension I10 ; Hypothyroidism (acquired) E03.9 and Dyslipidemia E78.5 [facility] [address] [place] [id number] [place] [address] 22903- 8030 May, [facility] [address] 78427- 2428 May, Acute nasopharyngitis J00 [facility] [address] [place] [id number] [place] [address] 22078 -8799 May, Allergic rhinitis, unspecified seasonality, unspecified trigger J30.9 [facility] [address] [place] [id number] [place] [address] 54825- 1302 May, [facility] [address] [place] [id number] [place] [address] 70826- 1210 Apr, Schizoaffective disorder, depressive type F25.1 [facility] [address] [place] [id number] [place] [address] 60511- 7989 Apr, [facility] [address] [place] [id number] [place] [address] 41794- 6529 Apr, Cigarette nicotine dependence without complication F17.210 [place] [address] [place] [id number] [place] [address] 59463- 0084 Apr, [facility] [address] [place] [id number] [place] [address] 83800- 4576 Apr, Cigarette nicotine dependence without complication F17.210 [place] [address] [place] [id number] [place] [address] 45573- 0252 Apr, [facility] [address] [place] [id number] [place] [address] 39765- 9965 Apr, Migraine without aura and without status migrainosus, not intractable G43.009 [place] [address] [place] [address] 86099- 9830 Apr, Migraine without aura and without status migrainosus, not intractable G43.009 [place] [address] [place] [id number] [place] [address] 33273- 3278 Mar, Schizoaffective disorder, depressive type F25.1 ; BMI 45.0- 49.9, adult Z68.42 and BMI 40.0-44.9, adult Z68.41 [place] [address] [place] [id number] [place] [address] 63961- 8133 Mar, Primary insomnia F51.01 [place] [address] [place] [id number] [place] [address] 67205- 3334 Mar, [place] [address] [place] [id number] [place] [address] 89351- 4705 Feb, Primary insomnia F51.01 [place] [address] 05166- 3131 Feb, [place] [address] [place] [id number] [place] [address] 44465- 7979 Jan, Schizoaffective disorder, depressive type F25.1 and BMI 45.0 -49.9, adult Z68.42 [place] [address] [place] [id number] [place] [address] 78776- 2525 Jan, [place] [address] 39277- 7138 Jan, Type 2 diabetes mellitus with diabetic neuropathic arthropathy, 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 ; Menopausal syndrome (hot flashes) N95.1 and BMI 40.0-44.9, adult Z68.41 [place] [address] [place] [id number] [place] [address] 26536- 4963 Jan, Paranoid schizophrenia F20.0 [place] [address] [place] [id number] [place] [address] 58368- 2632 Jan, [place] [address] [place] [id number] [place] [address] 10256- 3417 Jan, Schizoaffective disorder, depressive type F25.1 [place] [address] [place] [id number] [place] [address] 42435- 1313 Jan, [place] [address] [place] [id number] [place] [address] 86355- 7664 02 Jan, 2018 Chronic obstructive pulmonary disease, unspecified COPD type J44.9 ; BMI 45.0-49.9, adult Z68.42 ; Type 2 diabetes mellitus without complication, without long-term current use of insulin E11.9 ; Hypothyroidism ( acquired) E03.9 ; Encounter for immunization Z23 ; Gastroesophageal reflux disease without esophagitis K21.9 ; Primary insomnia F51.01 and Acute nasopharyngitis J00 [facility] [address] [place] [address] 34009- 4843 27 Dec, 2017 [facility] [address] [place] [id number] [place] [address] 46464- 2218 21 Dec, 2017 Schizoaffective disorder, depressive type F25.1 and BMI 45.0 -49.9, adult Z68.42 [facility] [address] [place] [id number] [place] [address] 64700- 5586 Dec, [facility] [address] [place] [id number] [place] [address] 93226- 7177 18 Dec, 2017 [facility] [address] [place] [id number] [place] [address] 08612- 8731 18 Dec, 2017 Acute non-recurrent frontal sinusitis J01.10 [facility] [address] [place] [id number] [place] [address] 07351- 7488 18 Dec, 2017 Acute non-recurrent frontal sinusitis J01.10 ; Weakness of left leg R29.898 ; At high risk for falls Z91.81 and BMI 45.0-49.9, adult Z68.42 [facility] [address] [place] [id number] [place] [address] 41520- 4972 17 Dec, 2017 [facility] [address] [place] [address] 64147- 1051 17 Dec, 2017 [facility] [address] [place] [id number] [place] [address] 04942- 6566 10 Dec, 2017 Schizoaffective disorder, depressive type F25.1 [facility] [address] [place] [address] 40806 -2112 10 Dec, 2017 Acute nasopharyngitis J00 [facility] [address] [place] [id number] [place] [address] 00119- 5323 05 Dec, 2017 Schizoaffective disorder, depressive type F25.1 [facility] [address] [place] [id number] [place] [address] 29994- 0807 Dec, [place] [address], [place] [address]- 2221 Nov, Schizoaffective disorder, depressive type F25.1 and BMI 45.0 -49.9, adult Z68.42 [place] [address], [place] [address]- 4720 Nov, [place] [address] [place] [id number] [place] [address] 10903- 6682 Nov, [place] [address] [place] [address] 96372- 6900 Nov, Schizoaffective disorder, depressive type F25.1 [place] [address] [place] [id number] [place] [address] 81765- 5884 Nov, Well woman exam Z01.419 ; BMI 45.0-49.9, adult Z68.42 ; Screening breast examination Z12.31 and Dietary counseling and surveillance Z71.3 [place] [address], [place] [address]- 3382 Nov, Paranoid schizophrenia F20.0 [place] [address] [place] [address] 91739- 3589 Nov, Gastroesophageal reflux disease, esophagitis presence not specified K21.9 [place] [address], [place] [address]- 7996 Oct, Paranoid schizophrenia F20.0 [facility] [place] [id number] [place] [address] Oct Chronic pain syndrome G89.4 and Schizoaffective disorder, depressive type F25.1 [place] [address], [place] [address]- 4172 Oct, Chronic pain syndrome G89.4 and Schizoaffective disorder, depressive type F25.1 [place] [address], [place] [address]- 0454 Oct, Type 2 diabetes mellitus without complication, without long- term current use of insulin E11.9 [place] [address] [place] [id number] [place] [address] 20482- 0917 12 Oct, 2017 Essential hypertension I10 and DM neuro manif type II E11.49 [place] [address] [place] [id number] [place] [address] 45674- 6545 Oct, [place] [address] [place] [id number] [place] [address] 18129- 1330 Oct, Schizoaffective disorder, depressive type F25.1 and BMI 45.0 -49.9, adult Z68.42 [place] [address] 66795- 9143 Oct, [place] [address] [place] [id number] [place] [address] 56693- 0084 Oct, Paranoid schizophrenia F20.0 [place] [address] [place] [id number] [place] [address] 11226- 7913 Oct, Type 2 diabetes mellitus with diabetic neuropathic arthropathy, 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 ; Essential hypertension I10 ; Hypothyroidism (acquired) E03.9 ; Chronic obstructive pulmonary disease, unspecified COPD type J44.9 and Diabetic polyneuropathy associated with type 2 diabetes mellitus E11.42 [place] [address] [place] [id number] [place] [address] 98367- 1584 Sep, Paranoid schizophrenia F20.0 [place] [address] [place] [id number] [place] [address] 34725- 4207 Sep, Paranoid schizophrenia F20.0 and BMI 45.0-49.9, adult Z68.42 [place] [address] [place] [id number] [place] [address] 58679- 0929 Sep, Schizoaffective disorder, depressive type F25.1 [place] [address] [place] [id number] [place] [address] 49583- 5605 Sep, [place] [address] [place] [id number] [place] [address] 73111- 0831 Sep, Paranoid schizophrenia F20.0 [facility] [address] [id number] [place] [address] 13295- 0000 Sep, [facility] [address] [place] [id number] [place] [address] 09348- 9318 Sep, Hypothyroidism (acquired) E03.9 [facility] [address] [place] [id number] [place] [address] 00031- 0112 Sep, [facility] [address] [id number] [place] [address] 07979- 2890 August, Schizoaffective disorder, depressive type F25.1 [facility] [address] [place] [id number] [place] [address] 72515- 5341 August, [facility] [address] [place] [id number] [place] [address] 01260- 7944 August, [facility] [address] [place] [id number] [place] [address] 81613- 7600 August, [facility] [address] [place] [id number] [place] [address] 03873- 3644 August, Paranoid schizophrenia F20.0 [facility] [address] [place] [id number] [place] [address] 12655- 4016 August, History of lupus Z87.39 and Chronic pain syndrome G89.4 [facility] [address] [place] [id number] [place] [address] 45868- 0081 August, [facility] [address] [place] [address] 36110 -5135 August, Seasonal allergic rhinitis, unspecified trigger J30.2 and BMI 45.0-49.9, adult Z68.42 [facility] [address], [place] [address]- 8455 Jul, Schizoaffective disorder, depressive type F25.1 [facility] [address] [place] [address]- 7189 19 Jul, 2017 [facility] [address] 02559- 8924 13 Jul, 2017 Hypothyroidism (acquired) E03.9 [facility] [address] 38508- 2801 11 Jul, 2017 Chronic obstructive pulmonary disease, unspecified COPD type J44.9 and Type 2 diabetes mellitus without complication, without long-term current use of insulin E11.9 [facility] [address] 87851- 9147 10 Jul, 2017 Paranoid schizophrenia F20.0 [place] [address] 48996- 8503 Jun, Hypothyroidism (acquired) E03.9 and Seasonal allergic rhinitis due to pollen J30.1 [facility] [address] 87953 -8875 Jun, Shortness of breath at rest R06.02 ; COPD exacerbation J44.1 and BMI 45.0-49.9, adult Z68.42 [place] [address] 06539- 4436 Jun, [facility] [address] 95759- 4437 Jun, Paranoid schizophrenia F20.0 ; Depression with anxiety F41.8 and BMI 45.0-49.9, adult Z68.42 [facility] [address] [place] [id number] [place] [address] 92408- 1321 Jun, Schizoaffective disorder, depressive type F25.1 [facility] [address] [id number] 13 Jun, 2017 Dental caries K02.9 [facility] [address] 51257- 7344 12 Jun, 2017 Paranoid schizophrenia F20.0 [facility] [address] [place] [address] 68160- 6115 May, Migraine without aura and without status migrainosus, not intractable G43.009 ; DM neuro manif type II E11.49 and Type 2 diabetes mellitus without complication, without long-term current use of insulin E11.9 [facility] [address] [place] [id number] [place] [address] 79077- 3259 May, Migraine without aura and without status migrainosus, not intractable G43.009 [facility] [address] [place] [id number] [place] [address] 39675- 8152 May, Depression with anxiety F41.8 [facility] [address] [id number] May, [place] [address] 29861- 0435 May, [place] [address] 04072- 8765 May, [place] [address] [place] [id number] [place] [address] 30666- 0763 May, Hypothyroidism (acquired) E03.9 [place] [address] [place] [id number] [place] [address] 27893- 6057 May, Paranoid schizophrenia F20.0 [place] [address] [place] [id number] [place] [address] 60606- 5598 May, Type 2 diabetes mellitus without complication, [...] N32.81 and Controlled substance agreement signed Z79.899 [facility] [address] [place] [id number] [place] [address] 24720- 9365 02 May, 2017 Controlled substance agreement signed Z79.899 [facility] [address] [id number] [place] [address] 08505- 2714 Apr, [facility] [address] [id number] Apr, Dental examination Z01.20 [facility] [address] 24233- 9107 Apr, Paranoid schizophrenia F20.0 [facility] [address] [id number] [place] [address] 88366- 6321 Apr, Hypertension, unspecified type I10 [facility] [id number] [place] [address] 25497- 9112 Apr, Paranoid schizophrenia F20.0 [facility] [id number] [place] [address] 62285- 5289 Apr, [facility] [id number] [place] [address] 13185- 5667 Apr, Tobacco abuse Z72.0 [facility] [id number] [place] [address] 39402- 4309 Apr, [facility] [id number] [place] [address] 82830- 5546 Mar, [facility] [id number] [place] [address] 45444- 9430 Mar, Paranoid schizophrenia F20.0 and BMI 45.0-49.9, adult Z68.42 [facility] [id number] [place] [address] 59980- 2257 Mar, Schizoaffective disorder, depressive type F25.1 [facility] [address] 40907- 3199 14 Mar, 2017 [place] [address] 56006- 9314 Mar, Hypothyroidism, unspecified type E03.9 [place] [address] 20781- 5054 Mar, Schizoaffective disorder, depressive type F25.1 [facility] [address] 27561 -3844 Feb, Gastroenteritis K52.9 and BMI 45.0-49.9, adult Z68.42 [place] [address] 69048- 5972 Feb, [place] [address] 64029- 2233 Feb, [place] [address] 15864- 4469 Feb, [place] [address] 95139- 5638 Feb, [place] [address] 66559- 7766 Feb, Paranoid schizophrenia F20.0 [place] [address] 55670- 4340 Feb, Gastroesophageal reflux disease without esophagitis K21.9 ; Other seasonal allergic rhinitis J30.2 ; Other allergic rhinitis J30.89 ; Tobacco abuse Z72.0 and BMI 40.0-44.9, adult Z68.41 [place] [address] 01094- 9602 Feb, Onychomycosis B35.1 ; Callus of foot L84 and DM neuro manif type II E11.49 [place] [address] [address] Jan, Chronic allergic rhinitis J30.9 [place] [address] [address] [place] [id number] [place] [id number] 16 Jan, 2017 [facility] [address] [address] Jan, Schizoaffective disorder, depressive type F25.1 [facility] [address] [address] 10 Jan, 2017 [facility] [address] [address] 07 Jan, 2017 Sore throat J02.9 and Seasonal allergic rhinitis due to other allergic trigger J30.89 [place] [address] [address] Jan, [place] [address] [address] Jan, [facility] [address] [address] Jan, Chronic allergic rhinitis J30.9 [facility] [address] [place] [id number] [place] [id number] 27 Dec, 2016 Paranoid schizophrenia F20.0 ; Primary insomnia F51.01 and Schizoaffective disorder, depressive type F25.1 [place] [id number] [place] [address] 78422- 4232 21 Dec, 2016 Chronic pain syndrome G89.4 ; Cervicalgia of occipito- atlanto-axial region M54.2 ; Menopausal syndrome (hot flashes) N95.1 and Encounter for immunization Z23 [facility] [id number] [place] [address] 74704- 3648 14 Dec, 2016 [place] [address] 70433- 2799 13 Dec, 2016 [facility] [id number] [place] [address] 40631- 8107 08 Dec, 2016 Paranoid schizophrenia F20.0 [place] [address] [place] [address] 53534- 4782 Dec, Schizoaffective disorder, depressive type F25.1 [place] [id number] [place] [address] 18539- 6166 Nov, Hypothyroidism, unspecified type E03.9 [facility] [id number] [place] [address] 73118 -8736 Nov, Acute seasonal allergic rhinitis due to other allergen J30.89 [place] [id number] [place] [address] 56229- 7971 Nov, [place] [address] 61487- 5919 Nov, Hypothyroidism, unspecified type E03.9 and Other elevated white blood cell (WBC) count D72.828 [place] [id number] [place] [address] 02178- 2754 Nov, Schizoaffective disorder, depressive type F25.1 [place] [id number] [place] [address] 37375- 2973 Nov, Paranoid schizophrenia F20.0 [place] [id number] [place] [address] 11457- 8644 Nov, Type 2 diabetes mellitus without complication, without long- term current use of insulin E11.9 ; Morbid obesity due to excess calories E66.01 and Chronic pain syndrome G89.4 [place] [id number] [place] [address] 31514- 5444 Oct, Paranoid schizophrenia F20.0 [place] [id number] [place] [address] 07255- 4279 Oct, [place] [id number] [place] [address] 82497- 0424 Oct, Schizoaffective disorder, depressive type F25.1 [place] [id number] [place] [address] 14120- 3132 Oct, Hypothyroidism, unspecified type E03.9 and Other elevated white blood cell (WBC) count D72.828 [facility] [id number] [place] [address] 58708- 1334 Oct, Morbid obesity due to excess calories E66.01 ; Chronic obstructive pulmonary disease, unspecified COPD type J44.9 ; History of lupus Z87.39 ; Hypothyroidism, unspecified type E03.9 ; Gastroesophageal reflux disease without esophagitis K21.9 ; Primary insomnia F51.01 and Chronic pain syndrome G89.4 [facility] [id number] [address] 9707 Sep, [place] [id number] [place] [address] 01694- 8950 Sep, [place] [id number] [place] [address] 54863- 1181 Sep, [facility] [address] [place] [address] 98002- 2320 Sep, Paranoid schizophrenia F20.0 [facility] [id number] [place] [address] 30650- 6612 Sep, [facility] [id number] [place] [address] 82749- 6702 Sep, Paranoid schizophrenia F20.0 [facility] [id number] [place] [address] 87709- 9475 Sep, [facility] [address] [place] [address] 49065- 8915 August, Paranoid schizophrenia F20.0 [facility] [address] [place] [address] 63641- 5043 Jul, [facility] [address] [place] [address] 38970- 3383 Jul, Type 2 diabetes mellitus without complication, without long- term current use of insulin E11.9 ; Morbid obesity due to excess calories E66.01 ; Depression with anxiety F41.8 ; Hypothyroidism, unspecified type E03.9 ; Seasonal allergic rhinitis due to other allergic trigger J30.89 ; Pain, dental K08.89 and Gastroesophageal reflux disease without esophagitis K21.9 [facility] [address] [address] 12 Jul, 2016 Dental examination Z01.20 [place] [id number] [place] [address] 23175- 7033 07 Jul, 2016 Paranoid schizophrenia F20.0 [place] [id number] [place] [address] 43486- 4266 13 Jun, 2016 Paranoid schizophrenia F20.0 and Depression with anxiety F41.8 [place] [id number] [place] [address] 47715- 7287 Jun, Paranoid schizophrenia F20.0 and Depression with anxiety F41.8 [place] [id number] [place] [address] 74472- 1265 Jun, [place] [id number] [place] [address] 76003- 1898 Jun, [facility] [place] [address] [place] [address] 15851 -4364 Jun, Seasonal allergic rhinitis due to other allergic trigger J30.89 [facility] [id number] [place] [address] 96050 -7647 May, Sore throat J02.9 ; Other viral agents as the cause of diseases classified elsewhere B97.89 and Acute upper respiratory infection, unspecified J06.9 [place] [id number] [place] [address] 74570- 5735 May, Paranoid schizophrenia F20.0 and Depression with anxiety F41.8 [place] [address] [place] [address] 91728- 9271 Apr, Other seasonal allergic rhinitis J30.2 [place] [id number] [place] [address] 21032- 9358 Apr, Paranoid schizophrenia F20.0 and Depression with anxiety F41.8 [facility] [id number] [place] [address] 92517 -0311 Apr, Bronchitis J40 and Sore throat J02.9 [place] [id number] [place] [address] 14836- 4730 Apr, Type 2 diabetes mellitus without complication, without long- term current use of insulin E11.9 [facility] [id number] [place] [address] 19808 -1062 Apr, Bronchitis J40 [place] [address] 53051- 4905 Apr, [place] [id number] [place] [address] 15324- 6584 Apr, [place] [id number] [place] [address] 45618- 4537 Mar, Type 2 diabetes mellitus without complication, [...] R60.9 and Other seasonal allergic rhinitis J30.2 [place] [id number] [place] [address] 51923- 8430 Mar, Paranoid schizophrenia F20.0 and Depression with anxiety F41.8 [place] [id number] [place] [address] 77492- 0744 Feb, [place] [id number] [place] [address] 61104- 0019 Feb, [address] [place] [address]- 1622 Feb, [facility] [id number] [place] [address] 93332- 6350 Feb, [facility] [id number] [place] [address] 07092- 3786 Feb, Type 2 diabetes mellitus without complication, without long- term current use of insulin E11.9 ; ARIAS on CPAP G47.33 and Preoperative evaluation to rule out surgical contraindication Z01.818 [facility] [id number] [place] [address] 89289- 1075 09 Feb, 2016 Paranoid schizophrenia F20.0 and Depression with anxiety F41.8 [facility] [id number] [place] [address] 53110- 6391 Jan, [facility] [id number] [place] [address] 00101- 3654 Jan, Paranoid schizophrenia F20.0 and Depression with anxiety F41.8 [facility] [id number] [place] [address] 21400- 9370 Jan, [facility] [id number] [place] [address] 46011- 7484 Jan, Muscle strain T14.8 [facility] [id number] [place] [address] 07343- 3889 Jan, Paranoid schizophrenia F20.0 [facility] [id number] [place] [address] 05974- 6323 Jan, [facility] [address] [place] [address] 14339- 6736 Jan, Paranoid schizophrenia F20.0 and Depression with anxiety F41.8 [facility] [address], [place] [address]- 5375 Jan, [facility] [id number] [place] [address] 92045- 7975 Jan, [facility] [address], [place] [address]- 2001 28 Dec, 2015 [facility] [id number] [place] [address] 32645- 1183 23 Dec, 2015 Paranoid schizophrenia F20.0 [facility] [address] [place] [address] 76031- 1613 16 Dec, 2015 Paranoid schizophrenia F20.0 and Depression with anxiety F41.8 [facility] [id number] [place] [address] 07217- 9530 Nov, [place] [id number] [place] [address] 45672- 3753 Nov, Paranoid schizophrenia F20.0 [place] [id number] [place] [address] 72814- 6027 Nov, Paranoid schizophrenia F20.0 and Depression with anxiety F41.8 [place] [address] [place] [address] 85945- 8042 Nov, Type 2 diabetes mellitus without complication, without long- term current use of insulin E11.9 ; Paranoid schizophrenia F20.0 ; Chronic obstructive pulmonary disease, unspecified COPD type J44.9 ; Morbid obesity due to excess calories E66.01 and Parkinsonian tremor G20 [facility] [address], [place] [address]- 0919 Nov, [facility] [address], [place] [address]- 6235 Oct, Paranoid schizophrenia F20.0 [facility] [address], [place] [address]- 0377 Oct, Paranoid schizophrenia F20.0 [facility] [address], [place] [address]- 3775 Oct, Paranoid schizophrenia F20.0 and Depression with anxiety F41.8 [facility] [id number] [place] [address] 58661- 4984 Oct, [place] [address] [place] [address] 48435- 9724 Oct, Paranoid schizophrenia F20.0 and Depression with anxiety F41.8 [place] [address] [place] [address] 88943- 3003 Oct, Nasal sore J34.89 [place] [id number] [place] [address] 65093- 1316 Oct, Type 2 diabetes mellitus without complication, without long- term current use of insulin E11.9 ; Depression with anxiety F41.8 ; Hypothyroidism, unspecified type E03.9 and History of lupus Z87.39 [place] [id number] [place] [address] 18356- 9436 Oct, [place] [id number] [place] [address] 42447- 5137 Oct, Type 2 diabetes mellitus without complication, [...] edema R60.9 and History of lupus Z87.39 [place] [address], [place] [address]- 0138 Feb, [place] [id number] [place] [address] 23609- 0078 Jan, [place] [address] [place] [address] 00341- 8848 Jan, [place] [id number] [place] [address] 13701- 8119 Jan, [facility] [address] [facility] [id number] [place] [address]- 9143 Dec, [facility] [id number] [place] [address]- 2349 Nov, [facility] [address] [facility] [id number] [place] [address]- 9371 Nov, [facility] [id number] [place] [address], [place] [address]- 8974 Oct, [facility] [address] [place] [id number] [place] [address]- 3856 Oct, [facility] [id number] [place] [address]- 3017 Oct, [facility] [id number] [place] [address]- 6706 Sep, Allergic rhinitis 477.9 [facility] [address], [place] [address]- 2869 Sep, Rhinitis, allergic 477.9 [facility] [address], [place] [address]- 3029 Sep, Rhinitis, allergic 477.9 [facility] [address], [place] [address]- 6079 Sep, [facility] [address], [place] [address]- 8242 August, [facility] [id number] [address]- 9152 August, [facility] [id number] [address]- 6467 August, [facility] [id number] [address]- 7444 Jul, [facility] [id number] 1895 Jul, [facility] [place] [facility] [address] [id number] [place] [address]- 6197 13 Jul, 2014 [facility] [place] [facility] [address] [id number] [place] [address]- 4448 16 Jun, 2014 [facility] [place] [facility] [address] [id number] [place] [address]- 2289 16 Jun, 2014 [facility] [place] [facility] [address] [id number] [place] [address]- 6093 Jun, [facility] [place] [facility] [address] [id number] [place] [address]- 1399 Jun, [facility] [place] [facility] [address] [id number] [place] [address]- 4189 Jun, [facility] [place] [facility] [address] [id number] [place] [address]- 0208 Jun, [facility] [place] [facility] [address] [id number] [place] [address]- 3517 Jun, [facility] [place] [facility] [address] [id number] [place] [address]- 2456 Jun, [facility] [place] [facility] [address] [id number] [place] [address]- 8433 May, [facility] [place] [facility] [address] [id number] [place] [address]- 1836 May, [facility] [place] [facility] [address] [id number] [place] [address]- 6148 May, [facility] [place] [facility] [address] [id number] [place] [address]- 0452 May, [facility] [place] [facility] [address] [id number] [place] [address]- 1546 Apr, [facility] [place] [facility] [address] [id number] [place] [address]- 8163 Mar, [facility] [place] [facility] [address] [id number] [place] [address]- 0261 Mar, [facility] [place] [facility] [address] [id number] [place] [address]- 6173 Mar, [facility] [place] [facility] [address] [id number] [place] [address]- 2920 Mar, [facility] [place] [facility] [address] [id number] [place] [address]- 2268 Mar, [facility] [place] [facility] [address] [id number] [place] [address]- 7511 Mar, [facility] [place] [facility] [address] [id number] [place] [address]- 9167 Mar, [facility] [place] [facility] [address] [id number] [place] [address]- 2925 Mar, [facility] [place] [facility] [address] [id number] [place] [address]- 3770 Mar, [facility] [place] [facility] [address] [id number] [place] [address]- 7401 Feb, [facility] [place] [facility] [address] [id number] [place] [address]- 9112 Feb, [facility] [place] [facility] [address] [id number] [place] [address]- 9707 Feb, [facility] [place] [facility] [address] [id number] [place] [address]- 1216 17 Feb, 2014 [facility] [place] [facility] [address] [id number] [address]- 9296 Feb, [facility] [place] [facility] [address] [id number] [place] [address]- 6981 14 Feb, 2014 [facility] [place] [facility] [address] [id number] [place] [address]- 4913 Feb, [facility] [place] [facility] [address] [id number] [place] [address]- 6982 Feb, [facility] [place] [facility] [address] [id number] [place] [address]- 7762 23 Jan, 2014 [facility] [place] [facility] [address] [id number] [place] [address]- 2144 23 Jan, 2014 [facility] [place] [facility] [address] [id number] [place] [address]- 1003 16 Jan, 2014 [facility] [place] [facility] [address] [id number] [place] [address]- 5662 16 Jan, 2014 [facility] [place] [facility] [address] [id number] [place] [address]- 8585 15 Jan, 2014 [facility] [place] [facility] [address] [id number] [place] [address]- 8357 15 Jan, 2014 [facility] [place] [facility] [address] [id number] [place] [address]- 5592 14 Jan, 2014 [facility] [place] [facility] [address] [id number] [place] [address]- 6492 14 Jan, 2014 [facility] [place] [facility] [address] [id number] [place] [address]- 3832 14 Jan, 2014 [facility] [place] [facility] [address] [id number] [place] [address]- 1617 14 Jan, 2014 [facility] [place] [facility] [address] [id number] [place] [address]- 5561 18 Dec, 2013 [facility] [place] [facility] [address] [id number] [place] [address]- 8930 18 Dec, 2013 [facility] [place] [facility] [address] [id number] [place] [address]- 3336 10 Dec, 2013 [facility] [place] [facility] [address] [id number] [place] [address]- 2546 10 Dec, 2013 [facility] [place] [facility] [address] [id number] [place] [address]- 8977 22 Nov, 2013 [facility] [place] [facility] [address] [id number] [place] [address]- 8826 Nov, [facility] [place] [facility] [address] [id number] [place] [address]- 7476 Nov, [facility] [place] [facility] [address] [id number] [place] [address]- 4882 Nov, [facility] [place] [facility] [address] [id number] [place] [address]- 6806 Nov, [facility] [place] [facility] [address] [id number] [place] [address]- 4566 Oct, [facility] [place] [facility] [address] [id number] [place] [address]- 8995 Oct, [facility] [place] [facility] [address] [id number] [place] [address]- 5240 Oct, [facility] [place] [facility] [address] [id number] [place] [address]- 6522 Oct, [facility] [place] [facility] [address] [id number] [place] [address]- 7651 Sep, [facility] [place] [facility] [address] [id number] [place] [address]- 8027 Sep, [facility] [place] [facility] [address] [id number] [place] [address]- 0449 Sep, [facility] [place] [facility] [address] [id number], [place] [address]- 8856 Sep, [facility] [place] [facility] [address] [id number], [place] [address]- 6706 Sep, [facility] [place] [facility] [address] [id number] [place] [address]- 0413 Sep, [facility] [place] [facility] [address] [id number] [place] [address]- 0926 Sep, [facility] [place] [facility] [address] [id number] [place] [address]- 8613 Sep, [facility] [place] [facility] [address] [id number] [place] [address]- 7161 August, [facility] [address] [id number] [place] [address]- 7931 August, [facility] [place] [facility] [address] [id number] [place] [address]- 2094 August, [facility] [address] [id number] [place] [address]- 1693 August, [facility] [place] [facility] [address] [id number] [place] [address]- 4705 August, [facility] [place] [facility] [address] [id number] [place] [address]- 7551 August, [facility] [place] [facility] [address] [id number] [place] [address] August, [facility] [address] [id number] [place] [address] Jul, [facility] [place] [facility] [address] [id number] [place] [address] Jul, [facility] [place] [facility] [address] [id number] [place] [address] Jul, [facility] [address] [id number] [place] [address] Jul, [facility] [place] [facility] [address] [id number] [place] [address] Jul, [facility] [place] [facility] [address] [id number] [place] [address] Jul, [facility] [place] [facility] [address] [id number] [place] [address] Jul, [facility] [place] [facility] [address] [id number] [place] [address] Jul, [facility] [place] [facility] [address] [id number] [place] [address] Jul, [facility] [place] [facility] [address] [id number] [place] [address] Jul, [facility] [place] [facility] [address] [id number] [place] [address] Jul, [facility] [place] [facility] [address] [id number] [place] [address] Jul, [facility] [place] [facility] [address] [id number] [place] [address] Jun, [facility] [place] [facility] [address] [id number] [place] [address] Jun, [facility] [place] [facility] [address] [id number] [place] [address] Jun, [facility] [place] [facility] [address] [id number] [place] [address] Jun, [facility] [place] [facility] [address] [id number] [place] [address] Jun, [facility] [place] [facility] [address] [id number] [place] [address] May, [facility] [place] [facility] [address] [id number] [place] [address] May, [facility] [place] [facility] [address] [id number] [place] [address] May, [facility] [place] [facility] [address] [id number] [place] [address] May, [facility] [place] [facility] [address] [id number] [place] [address] May, [facility] [place] [facility] [address] [id number] [place] [address] May, [facility] [place] [facility] [address] [facility] [id number] [place] [address] May, [facility] [place] [facility] [address] [id number] [place] [address] May, [facility] [address] [id number] [place] [address] Mar, [facility] [place] [facility] [address] [id number] [place] [address] Mar, [facility] [address] [id number] [place] [address] Mar, [facility] [place] [facility] [address] [id number] [place] [address] Mar, [facility] [address] [id number] [place] [address] Mar, [facility] [place] [facility] [address] [id number] [place] [address] Mar, [facility] [address] [id number] [place] [address] Feb, [facility] [place] [facility] [address] [id number] [place] [address] Feb, [facility] [place] [facility] [address] [id number] [place] [address] Jan, [facility] [place] [facility] [address] [id number] [place] [address] Jan, [facility] [place] [facility] [address] [id number] [place] [address] Jan, [facility] [place] [facility] [address] [id number], [place] [address] Jan, [facility] [place] [facility] [address] [id number] [place] [address] Jan, [facility] [place] [facility] [address] [id number] [place] [address] Jan, [facility] [place] [facility] [address] [id number], [place] [address] Jan, [facility] [place] [facility] [address] [id number] [place] [address] Jan, [facility] [address] [id number] [place] [address] Jan, [facility] [place] [facility] [address] [id number] [place] [address] Jan, [facility] [place] [facility] [address] [id number] [place] [address] Dec, [facility] [address] [id number] [place] [address] Nov, [facility] [place] [facility] [address] [id number] [place] [address] Nov, [facility] [address] [id number] [place] [address] Nov, [facility] [address] [id number] [place] [address] Oct, [facility] [address] [id number] [place] [address] Oct, [facility] [address] [id number] [place] [address] August, [facility] [address] [id number] [place] [address] Apr, [facility] [address] [id number] [place] [address] Apr, [facility] [place] [facility] [address] [id number] [place] [address] Feb, [facility] [place] [facility] [address] [id number] [place] [address] Feb, [facility] [place] [facility] [address] [id number] [place] [address] Dec, [facility] [place] [facility] [address] [id number] [place] [address] Dec, [facility] [address] [facility] [id number] [place] [address] Oct, [facility] [address] [facility] [id number], [place] [address] Oct, [facility] [address] [facility] [id number], [place] [address] Oct, [facility] [address] [facility] [id number], [place] [address] Jul, IMMUNIZATIONS No Known Immunizations SOCIAL HISTORY Never Assessed REASON FOR VISIT EMR-[facility] [place] PLAN OF CARE VITAL SIGNS MEDICATIONS Unknown [...] for psychosis/mental illness , last one in [place] at [facility] 4 years ago
--- OUTSIDE RECORDS SUMMARY | 2018-09-02 13:05 | XMS REPORT ---
Author Author Migration, Doctor Organization [facility] Address Unknown Phone Unavailable Care Team Providers Care Chemist Inorganic Name Role Phone Migration, Doctor Unavailable Unavailable PROBLEMS Type Condition ICD9-CM Code PMZ63-XN Code Onset Dates Condition Status SNOMED Code Problem History of lupus Z87.39 Active 870218960 Problem OAB (overactive bladder) N32.81 Active 490817520 Problem Chronic pain syndrome G89.4 Active 524226487 Problem Type 2 diabetes mellitus without complication, without long-term current use of insulin E11.9 Active 766184799 Problem Depression with anxiety F41.8 Active 985874277 Problem Paranoid schizophrenia F20.0 Active 44829404 Problem Essential hypertension I10 Active 30772542 Problem Dyslipidemia E78.5 Active 947685720 Problem Schizoaffective disorder, depressive type F25.1 Active 08222395 Problem Seasonal allergic rhinitis due to other allergic trigger J30.89 Active 101259104 Problem DM neuro manif type II E11.49 Active 11653199 Problem Primary insomnia F51.01 Active 8655683 Problem Other allergic rhinitis J30.89 Active 404033693 Problem Menopausal syndrome (hot flashes) N95.1 Active 053622566 Problem Tobacco abuse Z72.0 Active 890891744 Problem Other seasonal allergic rhinitis J30.2 Active 902896819 Problem Hypothyroidism (acquired) E03.9 Active 641352463 Problem Gastroesophageal reflux disease, esophagitis presence not specified K21.9 Active 288168863 Problem Migraine without aura and without status migrainosus, not intractable G43.009 Active 105883239 Problem Cigarette nicotine dependence without complication F17.210 Active 48791712 Problem Morbid obesity due to excess calories E66.01 Active 773004738 Problem Allergic rhinitis, unspecified seasonality, unspecified trigger J30.9 Active 13173500 Problem Chronic obstructive pulmonary disease, unspecified COPD type J44.9 Active 39864778 Problem Gastroesophageal reflux disease without esophagitis K21.9 Active 242016493 Problem COPD exacerbation J44.1 Active 922855156 Problem Seasonal allergic rhinitis due to pollen J30.1 Active 18348772 Problem Diabetic polyneuropathy associated with type 2 diabetes mellitus E11.42 Active 781486620 Problem Type 2 diabetes mellitus with diabetic neuropathic arthropathy, 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 Active 877226841 ALLERGIES No Information ENCOUNTERS Encounter Location Date Diagnosis [place] [id number] [place] [address] 08971- 4427 Sep, [place] [address] [place] [id number] [place] [address] 71661- 0823 Jul, [place] [address] [place] [id number] [place] [address] 50700- 1203 Jul, Cigarette nicotine dependence without complication F17.210 [place] [address] [place] [id number] [place] [address] 80024- 4777 Jul, Type 2 diabetes mellitus without complication, without long- term current use of insulin E11.9 and Hypothyroidism (acquired) E03.9 [place] [address] [place] [id number] [place] [address] 83642- 0179 Jul, Encounter for Medicare annual wellness exam Z00.00 ; Morbid obesity due to excess calories E66.01 ; Diabetic polyneuropathy associated with type 2 diabetes mellitus E11.42 ; Chronic obstructive pulmonary disease, unspecified COPD type J44.9 ; Schizoaffective disorder, depressive type F25.1 and Hypothyroidism (acquired) E03.9 [place] [address] [place] [address] 84710- 5852 Jun, Gastroesophageal reflux disease without esophagitis K21.9 [place] [address] [place] [id number] [place] [address] 29018- 9851 Jun, Paranoid schizophrenia F20.0 [place] [address] [place] [id number] [place] [address] 20118- 9924 Jun, Schizoaffective disorder, depressive type F25.1 [place] [address] [place] [id number] [place] [address] 87078- 2740 Jun, [place] [address] [place] [id number] [address] 0745 20 Jun, 2018 Schizoaffective disorder, depressive type F25.1 [facility] [address] [place] [id number] [place] [address] 60326- 7466 Jun, Cigarette nicotine dependence without complication F17.210 [facility] [address] [place] [id number] [place] [address] 81263- 1866 18 Jun, 2018 Type 2 diabetes mellitus without complication, without long- term current use of insulin E11.9 [facility] [address] [place] [address] 37836- 0596 15 Jun, 2018 [facility] [address] [place] [id number] [place] [address] 27903- 8774 Jun, [facility] [address] [place] [id number] [place] [address] 51775- 0957 Jun, [facility] [address] [place] [id number] [place] [address] 42521- 3075 Jun, [facility] [address] [place] [id number] [place] [address] 78575- 1439 Jun, [facility] [address] [place] [id number] [place] [address] 32816- 5794 Jun, Paranoid schizophrenia F20.0 ; Type 2 diabetes mellitus without complication, without long-term current use of insulin E11.9 ; Hypothyroidism (acquired) E03.9 and Morbid obesity E66.01 [facility] [address] [place] [address] 18376- 9126 May, Paranoid schizophrenia F20.0 [facility] [address] [place] [id number] [place] [address] 94951- 5061 May, Hypothyroidism (acquired) E03.9 and Dyslipidemia E78.5 [facility] [address] [place] [address] 90020- 3549 May, Cigarette nicotine dependence without complication F17.210 [facility] [address] [place] [id number] [place] [address] 94436- 6056 18 May, 2018 [facility] [address] 98150- 8936 14 May, 2018 Type 2 diabetes mellitus without complication, without long- term current use of insulin E11.9 ; Essential hypertension I10 ; Hypothyroidism (acquired) E03.9 and Dyslipidemia E78.5 [facility] [address] 98899- 1672 May, [facility] [address] 68796- 1372 May, Schizoaffective disorder, depressive type F25.1 [place] [address] 37828- 9893 May, Paranoid schizophrenia F20.0 [place] [address] 42178- 9099 May, [facility] [address] [place] [address] May, [facility] [address] 58154- 5826 May, [facility] [address] 10936- 6876 May, Type 2 diabetes mellitus without complication, without long- term current use of insulin E11.9 ; Essential hypertension I10 ; Hypothyroidism (acquired) E03.9 and Dyslipidemia E78.5 [facility] [address] [place] [id number] [place] [address] 32509- 5787 May, [facility] [address] 90667- 9554 May, Acute nasopharyngitis J00 [facility] [address] [place] [id number] [place] [address] 92527 -2156 May, Allergic rhinitis, unspecified seasonality, unspecified trigger J30.9 [facility] [address] [place] [id number] [place] [address] 09954- 8281 May, [facility] [address] [place] [id number] [place] [address] 07600- 5784 Apr, Schizoaffective disorder, depressive type F25.1 [facility] [address] [place] [id number] [place] [address] 84652- 0656 Apr, [facility] [address] [place] [id number] [place] [address] 74495- 5129 Apr, Cigarette nicotine dependence without complication F17.210 [place] [address] [place] [id number] [place] [address] 99535- 7535 Apr, [facility] [address] [place] [id number] [place] [address] 26896- 6200 Apr, Cigarette nicotine dependence without complication F17.210 [place] [address] [place] [id number] [place] [address] 53298- 9675 Apr, [facility] [address] [place] [id number] [place] [address] 57490- 8517 Apr, Migraine without aura and without status migrainosus, not intractable G43.009 [place] [address] [place] [address] 99418- 3833 Apr, Migraine without aura and without status migrainosus, not intractable G43.009 [place] [address] [place] [id number] [place] [address] 84269- 6314 Mar, Schizoaffective disorder, depressive type F25.1 ; BMI 45.0- 49.9, adult Z68.42 and BMI 40.0-44.9, adult Z68.41 [place] [address] [place] [id number] [place] [address] 17978- 7717 Mar, Primary insomnia F51.01 [place] [address] [place] [id number] [place] [address] 30687- 7597 Mar, [place] [address] [place] [id number] [place] [address] 33231- 9011 Feb, Primary insomnia F51.01 [place] [address] 49988- 9971 Feb, [place] [address] [place] [id number] [place] [address] 44206- 4670 Jan, Schizoaffective disorder, depressive type F25.1 and BMI 45.0 -49.9, adult Z68.42 [place] [address] [place] [id number] [place] [address] 15963- 9465 Jan, [place] [address] 47590- 8099 Jan, Type 2 diabetes mellitus with diabetic neuropathic arthropathy, 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 ; Menopausal syndrome (hot flashes) N95.1 and BMI 40.0-44.9, adult Z68.41 [place] [address] [place] [id number] [place] [address] 30570- 2416 Jan, Paranoid schizophrenia F20.0 [place] [address] [place] [id number] [place] [address] 23629- 1681 Jan, [place] [address] [place] [id number] [place] [address] 26802- 7801 Jan, Schizoaffective disorder, depressive type F25.1 [place] [address] [place] [id number] [place] [address] 12491- 8705 Jan, [place] [address] [place] [id number] [place] [address] 62694- 0691 02 Jan, 2018 Chronic obstructive pulmonary disease, unspecified COPD type J44.9 ; BMI 45.0-49.9, adult Z68.42 ; Type 2 diabetes mellitus without complication, without long-term current use of insulin E11.9 ; Hypothyroidism ( acquired) E03.9 ; Encounter for immunization Z23 ; Gastroesophageal reflux disease without esophagitis K21.9 ; Primary insomnia F51.01 and Acute nasopharyngitis J00 [facility] [address] [place] [address] 97839- 0895 27 Dec, 2017 [facility] [address] [place] [id number] [place] [address] 87296- 2280 21 Dec, 2017 Schizoaffective disorder, depressive type F25.1 and BMI 45.0 -49.9, adult Z68.42 [facility] [address] [place] [id number] [place] [address] 14947- 1715 Dec, [facility] [address] [place] [id number] [place] [address] 64522- 6335 18 Dec, 2017 [facility] [address] [place] [id number] [place] [address] 44195- 9454 18 Dec, 2017 Acute non-recurrent frontal sinusitis J01.10 [facility] [address] [place] [id number] [place] [address] 50743- 7962 18 Dec, 2017 Acute non-recurrent frontal sinusitis J01.10 ; Weakness of left leg R29.898 ; At high risk for falls Z91.81 and BMI 45.0-49.9, adult Z68.42 [facility] [address] [place] [id number] [place] [address] 37649- 9638 17 Dec, 2017 [facility] [address] [place] [address] 47458- 0199 17 Dec, 2017 [facility] [address] [place] [id number] [place] [address] 07092- 7333 10 Dec, 2017 Schizoaffective disorder, depressive type F25.1 [facility] [id number] [place] [address] 56070 -5271 10 Dec, 2017 Acute nasopharyngitis J00 [facility] [address] [place] [id number] [place] [address] 44971- 9419 05 Dec, 2017 Schizoaffective disorder, depressive type F25.1 [facility] [address] [place] [id number] [place] [address] 64016- 7352 Dec, [place] [address] [address]- 9698 Nov, Schizoaffective disorder, depressive type F25.1 and BMI 45.0 -49.9, adult Z68.42 [place] [address] [address]- 8722 Nov, [place] [address] [place] [id number] [place] [address] 19450- 7229 Nov, [place] [address] [place] [address] 87448- 7428 Nov, Schizoaffective disorder, depressive type F25.1 [place] [address] [place] [id number] [place] [address] 73237- 7153 Nov, Well woman exam Z01.419 ; BMI 45.0-49.9, adult Z68.42 ; Screening breast examination Z12.31 and Dietary counseling and surveillance Z71.3 [place] [address] [address]- 8535 Nov, Paranoid schizophrenia F20.0 [place] [address] [place] [address] 50022- 4240 Nov, Gastroesophageal reflux disease, esophagitis presence not specified K21.9 [place] [address] [address]- 6109 Oct, Paranoid schizophrenia F20.0 [facility] [place] [id number] [place] [address] Oct Chronic pain syndrome G89.4 and Schizoaffective disorder, depressive type F25.1 [place] [address] [address]- 5286 Oct, Chronic pain syndrome G89.4 and Schizoaffective disorder, depressive type F25.1 [place] [address] [address]- 1362 Oct, Type 2 diabetes mellitus without complication, without long- term current use of insulin E11.9 [place] [address] [place] [id number] [place] [address] 88450- 3909 12 Oct, 2017 Essential hypertension I10 and DM neuro manif type II E11.49 [place] [address] [place] [id number] [place] [address] 50352- 1004 Oct, [place] [address] [place] [id number] [place] [address] 64576- 6000 Oct, Schizoaffective disorder, depressive type F25.1 and BMI 45.0 -49.9, adult Z68.42 [place] [address] 26693- 0417 Oct, [place] [address] [place] [id number] [place] [address] 77266- 4848 Oct, Paranoid schizophrenia F20.0 [place] [address] [place] [id number] [place] [address] 53042- 6519 Oct, Type 2 diabetes mellitus with diabetic neuropathic arthropathy, 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 ; Essential hypertension I10 ; Hypothyroidism (acquired) E03.9 ; Chronic obstructive pulmonary disease, unspecified COPD type J44.9 and Diabetic polyneuropathy associated with type 2 diabetes mellitus E11.42 [place] [address] [place] [id number] [place] [address] 33590- 2238 Sep, Paranoid schizophrenia F20.0 [place] [address] [place] [id number] [place] [address] 25098- 3269 Sep, Paranoid schizophrenia F20.0 and BMI 45.0-49.9, adult Z68.42 [place] [address] [place] [id number] [place] [address] 47230- 0646 Sep, Schizoaffective disorder, depressive type F25.1 [place] [address] [place] [id number] [place] [address] 65499- 8360 Sep, [place] [address] [place] [id number] [place] [address] 41185- 1878 Sep, Paranoid schizophrenia F20.0 [facility] [address] [place] [id number] [place] [address] 58600- 3147 Sep, [facility] [address] [place] [id number] [place] [address] 91007- 6363 Sep, Hypothyroidism (acquired) E03.9 [facility] [address] [place] [id number] [place] [address] 82558- 6078 Sep, [facility] [address] [place] [id number] [place] [address] 28030- 1411 August, Schizoaffective disorder, depressive type F25.1 [facility] [address] [place] [id number] [place] [address] 64270- 0434 August, [facility] [address] [place] [id number] [place] [address] 78392- 9005 August, [facility] [address] [place] [id number] [place] [address] 32404- 9647 August, [facility] [address] [place] [id number] [place] [address] 96499- 3591 August, Paranoid schizophrenia F20.0 [facility] [address] [place] [id number] [place] [address] 01960- 4692 August, History of lupus Z87.39 and Chronic pain syndrome G89.4 [facility] [address] [place] [id number] [place] [address] 36848- 5095 August, [facility] [address] [place] [address] 24926 -2080 August, Seasonal allergic rhinitis, unspecified trigger J30.2 and BMI 45.0-49.9, adult Z68.42 [facility] [address] [address]- 4261 Jul, Schizoaffective disorder, depressive type F25.1 [facility] [address] [place] [address]- 9362 19 Jul, 2017 [facility] [address] 46641- 2738 13 Jul, 2017 Hypothyroidism (acquired) E03.9 [facility] [address] 28676- 3021 11 Jul, 2017 Chronic obstructive pulmonary disease, unspecified COPD type J44.9 and Type 2 diabetes mellitus without complication, without long-term current use of insulin E11.9 [facility] [address] 38355- 4723 10 Jul, 2017 Paranoid schizophrenia F20.0 [place] [address] 84647- 7919 Jun, Hypothyroidism (acquired) E03.9 and Seasonal allergic rhinitis due to pollen J30.1 [facility] [address] 32241 -1395 Jun, Shortness of breath at rest R06.02 ; COPD exacerbation J44.1 and BMI 45.0-49.9, adult Z68.42 [place] [address] 93479- 6350 Jun, [facility] [address] 41276- 7401 Jun, Paranoid schizophrenia F20.0 ; Depression with anxiety F41.8 and BMI 45.0-49.9, adult Z68.42 [facility] [address] [place] [id number] [place] [address] 17221- 5462 Jun, Schizoaffective disorder, depressive type F25.1 [facility] [address] [id number] 13 Jun, 2017 Dental caries K02.9 [facility] [address] 84153- 0105 12 Jun, 2017 Paranoid schizophrenia F20.0 [facility] [address] [place] [address] 38087- 1223 May, Migraine without aura and without status migrainosus, not intractable G43.009 ; DM neuro manif type II E11.49 and Type 2 diabetes mellitus without complication, without long-term current use of insulin E11.9 [facility] [address] [place] [id number] [place] [address] 86032- 4266 May, Migraine without aura and without status migrainosus, not intractable G43.009 [facility] [address] [place] [id number] [place] [address] 10677- 9044 May, Depression with anxiety F41.8 [facility] [address] [id number] May, [place] [address] 79174- 3570 May, [place] [address] 51969- 3706 May, [place] [address] [place] [id number] [place] [address] 56156- 6254 May, Hypothyroidism (acquired) E03.9 [place] [address] [place] [id number] [place] [address] 21102- 2479 May, Paranoid schizophrenia F20.0 [place] [address] [place] [id number] [place] [address] 37278- 2921 May, Type 2 diabetes mellitus without complication, [...] N32.81 and Controlled substance agreement signed Z79.899 [facility] [address] [place] [id number] [place] [address] 18297- 3800 02 May, 2017 Controlled substance agreement signed Z79.899 [facility] [address] [place] [id number] [place] [address] 09849- 6473 Apr, [facility] [address] [id number] Apr, Dental examination Z01.20 [facility] [address] 87372- 5081 Apr, Paranoid schizophrenia F20.0 [facility] [address] [place] [id number] [place] [address] 80161- 5751 Apr, Hypertension, unspecified type I10 [facility] [address] [place] [id number] [place] [address] 07969- 2599 Apr, Paranoid schizophrenia F20.0 [facility] [address] [place] [id number] [place] [address] 75088- 3782 Apr, [facility] [address] [place] [id number] [place] [address] 78836- 7717 Apr, Tobacco abuse Z72.0 [facility] [address] [place] [id number] [place] [address] 16661- 2967 Apr, [facility] [address] [place] [id number] [place] [address] 51589- 9184 Mar, [facility] [address] [place] [id number] [place] [address] 73410- 5024 Mar, Paranoid schizophrenia F20.0 and BMI 45.0-49.9, adult Z68.42 [facility] [id number] [place] [address] Mar, Schizoaffective disorder, depressive type F25.1 [facility] ([facility] [address] [address] 14 Mar, 2017 [place] [address] [address] Mar, Hypothyroidism, unspecified type E03.9 [place] [address] [address] Mar, Schizoaffective disorder, depressive type F25.1 [facility] [address] [address] Feb, Gastroenteritis K52.9 and BMI 45.0-49.9, adult Z68.42 [place] [address] [address] Feb, [place] [address] [address] Feb, [place] [address] [address] Feb, [place] [address] [address] Feb, [place] [address] [address] Feb, Paranoid schizophrenia F20.0 [place] [address] [address] Feb, Gastroesophageal reflux disease without esophagitis K21.9 ; Other seasonal allergic rhinitis J30.2 ; Other allergic rhinitis J30.89 ; Tobacco abuse Z72.0 and BMI 40.0-44.9, adult Z68.41 [place] [address] [address] Feb, Onychomycosis B35.1 ; Callus of foot L84 and DM neuro manif type II E11.49 [place] [address] [address] Jan, Chronic allergic rhinitis J30.9 [place] [address] [place] [id number] [place] [address]- [address] 16 Jan, 2017 [facility] ([facility] [address] [address] Jan, Schizoaffective disorder, depressive type F25.1 [facility] ([facility] [address] [address] 10 Jan, 2017 [facility] [address] [address] 07 Jan, 2017 Sore throat J02.9 and Seasonal allergic rhinitis due to other allergic trigger J30.89 [place] [address] 45226- 5073 Jan, [place] [address] 51236- 6575 Jan, [facility] [address] 09189 -3113 Jan, Chronic allergic rhinitis J30.9 [facility] [address] [place] [id number] [place] [address] 38132- 8522 27 Dec, 2016 Paranoid schizophrenia F20.0 ; Primary insomnia F51.01 and Schizoaffective disorder, depressive type F25.1 [place] [address] [id number] [place] [address] 08835- 7545 21 Dec, 2016 Chronic pain syndrome G89.4 ; Cervicalgia of occipito- atlanto-axial region M54.2 ; Menopausal syndrome (hot flashes) N95.1 and Encounter for immunization Z23 [facility] [address] [place] [id number] [place] [address] 89795- 1431 14 Dec, 2016 [place] [address] 82904- 4336 13 Dec, 2016 [facility] [address] [place] [id number] [place] [address] 67877- 0955 08 Dec, 2016 Paranoid schizophrenia F20.0 [place] [id number] [place] [address] 60628- 8302 Dec, Schizoaffective disorder, depressive type F25.1 [place] [address] [place] [id number] [place] [address] 08280- 8790 Nov, Hypothyroidism, unspecified type E03.9 [facility] [address] [id number] [place] [address] 70025 -4535 Nov, Acute seasonal allergic rhinitis due to other allergen J30.89 [place] [address] [place] [id number] [place] [address] 90827- 4640 Nov, [place] [address] 26187- 4499 Nov, Hypothyroidism, unspecified type E03.9 and Other elevated white blood cell (WBC) count D72.828 [place] [address] [place] [id number] [place] [address] 29308- 7811 Nov, Schizoaffective disorder, depressive type F25.1 [place] [address] [place] [id number] [place] [address] 68354- 3411 Nov, Paranoid schizophrenia F20.0 [place] [address] [place] [id number] [place] [address] 88456- 5906 Nov, Type 2 diabetes mellitus without complication, without long- term current use of insulin E11.9 ; Morbid obesity due to excess calories E66.01 and Chronic pain syndrome G89.4 [place] [address] [place] [id number] [place] [address] 22104- 5746 Oct, Paranoid schizophrenia F20.0 [place] [address] [id number] [place] [address] 51277- 4915 Oct, [place] [address] [place] [id number] [place] [address] 69466- 7987 Oct, Schizoaffective disorder, depressive type F25.1 [place] [address] [place] [id number] [place] [address] 55880- 5366 Oct, Hypothyroidism, unspecified type E03.9 and Other elevated white blood cell (WBC) count D72.828 [facility] [address] [place] [place] [id number] [place] [address] 64528- 3614 Oct, Morbid obesity due to excess calories E66.01 ; Chronic obstructive pulmonary disease, unspecified COPD type J44.9 ; History of lupus Z87.39 ; Hypothyroidism, unspecified type E03.9 ; Gastroesophageal reflux disease without esophagitis K21.9 ; Primary insomnia F51.01 and Chronic pain syndrome G89.4 [facility] [address] [place] [id number] [address]- 1408 Sep, [place] [address] [place] [id number] [place] [address] 04796- 4835 Sep, [place] [address] [place] [id number] [place] [address] 94667- 6601 Sep, [facility] ([facility] [id number] [place] [address] 28763- 0839 Sep, Paranoid schizophrenia F20.0 [facility] [address] [place] [id number] [place] [address] 48672- 2163 Sep, [facility] [address] [place] [id number] [place] [address] 46502- 4085 Sep, Paranoid schizophrenia F20.0 [facility] [address] [place] [id number] [place] [address] 93802- 3227 Sep, [facility] [id number] [place] [address] 36307- 7867 August, Paranoid schizophrenia F20.0 [facility] [address] [place] [address] 20894- 6364 Jul, [facility] [address] [place] [address] 28340- 0669 Jul, Type 2 diabetes mellitus without complication, without long- term current use of insulin E11.9 ; Morbid obesity due to excess calories E66.01 ; Depression with anxiety F41.8 ; Hypothyroidism, unspecified type E03.9 ; Seasonal allergic rhinitis due to other allergic trigger J30.89 ; Pain, dental K08.89 and Gastroesophageal reflux disease without esophagitis K21.9 [facility] [id number] [id number] 12 Jul, 2016 Dental examination Z01.20 [place] [address] [place] [id number] [place] [address] 02490- 8142 07 Jul, 2016 Paranoid schizophrenia F20.0 [place] [address] [place] [id number] [place] [address] 35702- 9114 13 Jun, 2016 Paranoid schizophrenia F20.0 and Depression with anxiety F41.8 [place] [address] [place] [id number] [place] [address] 05024- 7726 Jun, Paranoid schizophrenia F20.0 and Depression with anxiety F41.8 [place] [address] [place] [id number] [place] [address] 44976- 8697 Jun, [place] [address] [place] [id number] [place] [address] 24889- 3137 Jun, [facility] [place] [address] [place] [address] 69584 -6274 Jun, Seasonal allergic rhinitis due to other allergic trigger J30.89 [facility] [address] [place] [id number] [place] [address] 48561 -6043 May, Sore throat J02.9 ; Other viral agents as the cause of diseases classified elsewhere B97.89 and Acute upper respiratory infection, unspecified J06.9 [place] [address] [place] [id number] [place] [address] 80637- 3134 May, Paranoid schizophrenia F20.0 and Depression with anxiety F41.8 [place] [address] [place] [address] 94557- 3928 Apr, Other seasonal allergic rhinitis J30.2 [place] [address] [place] [id number] [place] [address] 82679- 9049 Apr, Paranoid schizophrenia F20.0 and Depression with anxiety F41.8 [facility] [address] [place] [id number] [place] [address] 07075 -2830 Apr, Bronchitis J40 and Sore throat J02.9 [place] [address] [place] [id number] [place] [address] 75025- 5605 Apr, Type 2 diabetes mellitus without complication, without long- term current use of insulin E11.9 [facility] [address] [place] [id number] [place] [address] 00936 -3139 Apr, Bronchitis J40 [place] [address] 47242- 7537 Apr, [place] [address] [place] [id number] [place] [address] 44430- 0489 Apr, [place] [address] [place] [id number] [place] [address] 39221- 0993 Mar, Type 2 diabetes mellitus without complication, [...] R60.9 and Other seasonal allergic rhinitis J30.2 [place] [address] [place] [id number] [place] [address] 00943- 5703 Mar, Paranoid schizophrenia F20.0 and Depression with anxiety F41.8 [place] [address] [place] [id number] [place] [address] 32206- 2730 Feb, [place] [address] [place] [id number] [place] [address] 20649- 2531 Feb, [address] [place] [address]- 3393 Feb, [facility] [address] [place] [id number] [place] [address] 70202- 1544 Feb, [facility] [address] [place] [id number] [place] [address] 20101- 8113 Feb, Type 2 diabetes mellitus without complication, without long- term current use of insulin E11.9 ; ARIAS on CPAP G47.33 and Preoperative evaluation to rule out surgical contraindication Z01.818 [facility] [address] [place] [id number] [place] [address] 32614- 0563 09 Feb, 2016 Paranoid schizophrenia F20.0 and Depression with anxiety F41.8 [facility] [address] [place] [id number] [place] [address] 44639- 4308 Jan, [facility] [address] [place] [id number] [place] [address] 17566- 4540 Jan, Paranoid schizophrenia F20.0 and Depression with anxiety F41.8 [facility] [address] [place] [id number] [place] [address] 28370- 7676 Jan, [facility] [address] [place] [id number] [place] [address] 63559- 3119 Jan, Muscle strain T14.8 [facility] [address] [place] [id number] [place] [address] 53262- 4155 Jan, Paranoid schizophrenia F20.0 [facility] [address] [place] [id number] [place] [address] 37014- 4082 Jan, [facility] [address] [place] [address] 06799- 5974 Jan, Paranoid schizophrenia F20.0 and Depression with anxiety F41.8 [facility] [address] [address]- 5047 Jan, [facility] [address] [place] [id number] [place] [address] 13771- 7612 Jan, [facility] [id number] [address]- 3800 28 Dec, 2015 [facility] [address] [place] [id number] [place] [address] 77996- 1276 23 Dec, 2015 Paranoid schizophrenia F20.0 [facility] [address] [place] [address] 37422- 4053 16 Dec, 2015 Paranoid schizophrenia F20.0 and Depression with anxiety F41.8 [facility] [address] [place] [id number] [place] [address] 13505- 4460 Nov, [place] [address] [place] [id number] [place] [address] 08413- 8094 Nov, Paranoid schizophrenia F20.0 [place] [address] [place] [id number] [place] [address] 07857- 8358 Nov, Paranoid schizophrenia F20.0 and Depression with anxiety F41.8 [place] [address] [place] [address] 30338- 2147 Nov, Type 2 diabetes mellitus without complication, without long- term current use of insulin E11.9 ; Paranoid schizophrenia F20.0 ; Chronic obstructive pulmonary disease, unspecified COPD type J44.9 ; Morbid obesity due to excess calories E66.01 and Parkinsonian tremor G20 [facility] [address] [address]- 2650 Nov, [facility] [id number] [address]- 2680 Oct, Paranoid schizophrenia F20.0 [facility] [address] [address]- 6114 Oct, Paranoid schizophrenia F20.0 [facility] [address] [address]- 6126 Oct, Paranoid schizophrenia F20.0 and Depression with anxiety F41.8 [facility] [address] [place] [id number] [place] [address] 10050- 6731 Oct, [place] [address] [place] [address] 97357- 4583 Oct, Paranoid schizophrenia F20.0 and Depression with anxiety F41.8 [place] [address] [place] [address] 69414- 3441 Oct, Nasal sore J34.89 [place] [address] [place] [id number] [place] [address] 62057- 9724 Oct, Type 2 diabetes mellitus without complication, without long- term current use of insulin E11.9 ; Depression with anxiety F41.8 ; Hypothyroidism, unspecified type E03.9 and History of lupus Z87.39 [place] [address] [place] [id number] [place] [address] 39547- 3336 Oct, [place] [address] [place] [id number] [place] [address] 10851- 8761 Oct, Type 2 diabetes mellitus without complication, [...] edema R60.9 and History of lupus Z87.39 [place] [id number] [address]- 6539 Feb, [place] [address] [place] [id number] [place] [address] 07397- 4846 Jan, [place] [address] [place] [address] 19633- 8527 Jan, [place] [address] [place] [id number] [place] [address] 87829- 4300 Jan, [facility] [address] [facility] [id number] [place] [address]- 1712 Dec, [facility] [id number] [place] [address]- 0735 Nov, [facility] [address] [facility] [id number] [place] [address]- 3669 Nov, [facility] [address] [place] [id number] [place] [address], [place] [address]- 7679 Oct, [facility] [address] [place] [id number] [place] [address]- 6318 Oct, [facility] [id number] [place] [address]- 9725 Oct, [facility] [id number] [place] [address]- 6238 Sep, Allergic rhinitis 477.9 [facility] [address] [address]- 2523 Sep, Rhinitis, allergic 477.9 [facility] [address] [address]- 8347 Sep, Rhinitis, allergic 477.9 [facility] [address] [address]- 7182 Sep, [facility] [address] [address]- 0519 August, [facility] [address] [place] [id number] [address]- 9451 August, [facility] [id number] [place] [address]- 6491 August, [facility] [address] [place] [id number] [address]- 7348 Jul, [facility] [address] [place] [id number] 9775 Jul, [facility] [place] [facility] [address] [id number] [place] [address]- 2934 13 Jul, 2014 [facility] [place] [facility] [address] [id number] [place] [address]- 8737 16 Jun, 2014 [facility] [place] [facility] [address] [id number] [place] [address]- 2053 16 Jun, 2014 [facility] [place] [facility] [address] [id number] [place] [address]- 5505 Jun, [facility] [place] [facility] [address] [id number] [place] [address]- 3135 Jun, [facility] [place] [facility] [address] [id number] [place] [address]- 2089 Jun, [facility] [place] [facility] [address] [id number] [place] [address]- 2220 Jun, [facility] [place] [facility] [address] [id number] [place] [address]- 2970 Jun, [facility] [place] [facility] [address] [id number] [place] [address]- 7095 Jun, [facility] [place] [facility] [address] [id number] [place] [address]- 5486 May, [facility] [place] [facility] [address] [id number] [place] [address]- 5162 May, [facility] [place] [facility] [address] [id number] [place] [address]- 6690 May, [facility] [place] [facility] [address] [id number] [place] [address]- 9634 May, [facility] [place] [facility] [address] [id number] [place] [address]- 7466 Apr, [facility] [place] [facility] [address] [id number] [place] [address]- 3430 Mar, [facility] [place] [facility] [address] [id number] [place] [address]- 5821 Mar, [facility] [place] [facility] [address] [id number] [place] [address]- 6038 Mar, [facility] [place] [facility] [address] [id number] [place] [address]- 1172 Mar, [facility] [place] [facility] [address] [id number] [place] [address]- 0559 Mar, [facility] [place] [facility] [address] [id number] [place] [address]- 2817 Mar, [facility] [place] [facility] [address] [id number] [place] [address]- 5958 Mar, [facility] [place] [facility] [address] [id number] [place] [address]- 2121 Mar, [facility] [place] [facility] [address] [id number] [place] [address]- 1369 Mar, [facility] [place] [facility] [address] [id number] [place] [address]- 5720 Feb, [facility] [place] [facility] [address] [id number] [place] [address]- 1639 Feb, [facility] [place] [facility] [address] [id number] [place] [address]- 4305 Feb, [facility] [place] [facility] [address] [id number] [place] [address]- 9846 17 Feb, 2014 [facility] [place] [facility] [address] [id number] [address]- 6078 Feb, [facility] [place] [facility] [address] [id number] [place] [address]- 2200 14 Feb, 2014 [facility] [place] [facility] [address] [id number] [place] [address]- 3357 Feb, [facility] [place] [facility] [address] [id number] [place] [address]- 2396 Feb, [facility] [place] [facility] [address] [id number] [place] [address]- 6126 23 Jan, 2014 [facility] [place] [facility] [address] [id number] [place] [address]- 2288 23 Jan, 2014 [facility] [place] [facility] [address] [id number] [place] [address]- 1648 16 Jan, 2014 [facility] [place] [facility] [address] [id number] [place] [address]- 0258 16 Jan, 2014 [facility] [place] [facility] [address] [id number] [place] [address]- 0836 15 Jan, 2014 [facility] [place] [facility] [address] [id number] [place] [address]- 5426 15 Jan, 2014 [facility] [place] [facility] [address] [id number] [place] [address]- 9839 14 Jan, 2014 [facility] [place] [facility] [address] [id number] [place] [address]- 6717 14 Jan, 2014 [facility] [place] [facility] [address] [id number] [place] [address]- 5792 14 Jan, 2014 [facility] [place] [facility] [address] [id number] [place] [address]- 2298 14 Jan, 2014 [facility] [place] [facility] [address] [id number] [place] [address]- 7821 18 Dec, 2013 [facility] [place] [facility] [address] [id number] [place] [address]- 0514 18 Dec, 2013 [facility] [place] [facility] [address] [id number] [place] [address]- 3009 10 Dec, 2013 [facility] [place] [facility] [address] [id number] [place] [address]- 2546 10 Dec, 2013 [facility] [place] [facility] [address] [id number] [place] [address]- 7707 22 Nov, 2013 [facility] [place] [facility] [address] [id number] [place] [address]- 6201 Nov, [facility] [place] [facility] [address] [id number] [place] [address]- 6787 Nov, [facility] [place] [facility] [address] [id number] [place] [address]- 5746 Nov, [facility] [place] [facility] [address] [id number] [place] [address]- 6583 Nov, [facility] [place] [facility] [address] [id number] [place] [address]- 7347 Oct, [facility] [place] [facility] [address] [id number] [place] [address]- 1239 Oct, [facility] [place] [facility] [address] [id number] [place] [address]- 8533 Oct, [facility] [place] [facility] [address] [id number] [place] [address]- 5301 Oct, [facility] [place] [facility] [address] [id number] [place] [address]- 8992 Sep, [facility] [place] [facility] [address] [id number] [place] [address]- 7092 Sep, [facility] [place] [facility] [address] [id number] [place] [address]- 1191 Sep, [facility] [place] [facility] [address] [id number] [address]- 6722 Sep, [facility] [place] [facility] [address] [id number] [address] Sep, [facility] [place] [facility] [address] [id number] [place] [address] Sep, [facility] [place] [facility] [address] [id number] [place] [address] Sep, [facility] [place] [facility] [address] [id number] [place] [address] Sep, [facility] [place] [facility] [address] [id number] [place] [address] August, [facility] [address] [id number] [place] [address] August, [facility] [place] [facility] [address] [id number] [place] [address] August, [facility] [address] [id number] [place] [address] August, [facility] [place] [facility] [address] [id number] [place] [address] August, [facility] [place] [facility] [address] [id number] [place] [address] August, [facility] [place] [facility] [address] [id number] [place] [address] August, [facility] [address] [id number] [place] [address] Jul, [facility] [place] [facility] [address] [id number] [place] [address] Jul, [facility] [place] [facility] [address] [id number] [place] [address] Jul, [facility] [address] [id number] [place] [address] Jul, [facility] [place] [facility] [address] [id number] [place] [address] Jul, [facility] [place] [facility] [address] [id number] [place] [address] Jul, [facility] [place] [facility] [address] [id number] [place] [address] Jul, [facility] [place] [facility] [address] [id number] [place] [address] Jul, [facility] [place] [facility] [address] [id number] [place] [address] Jul, [facility] [place] [facility] [address] [id number] [place] [address] Jul, [facility] [place] [facility] [address] [id number] [place] [address] Jul, [facility] [place] [facility] [address] [id number] [place] [address] Jul, [facility] [place] [facility] [address] [id number] [place] [address] Jun, [facility] [place] [facility] [address] [id number] [place] [address] Jun, [facility] [place] [facility] [address] [id number] [place] [address] Jun, [facility] [place] [facility] [address] [id number] [place] [address] Jun, [facility] [place] [facility] [address] [id number] [place] [address] Jun, [facility] [place] [facility] [address] [id number] [place] [address] May, [facility] [place] [facility] [address] [id number] [place] [address] May, [facility] [place] [facility] [address] [id number] [place] [address] May, [facility] [place] [facility] [address] [id number] [place] [address] May, [facility] [place] [facility] [address] [id number] [place] [address] May, [facility] [place] [facility] [address] [id number] [place] [address] May, [facility] [place] [facility] [address] [facility] [id number] [place] [address] May, [facility] [place] [facility] [address] [id number] [place] [address] May, [facility] [address] [id number] [place] [address] Mar, [facility] [place] [facility] [address] [id number] [place] [address] Mar, [facility] [address] [id number] [place] [address] Mar, [facility] [place] [facility] [address] [id number] [place] [address] Mar, [facility] [address] [id number] [place] [address] Mar, [facility] [place] [facility] [address] [id number] [place] [address] Mar, [facility] [address] [id number] [place] [address] Feb, [facility] [place] [facility] [address] [id number] [place] [address] Feb, [facility] [place] [facility] [address] [id number] [place] [address] Jan, [facility] [place] [facility] [address] [id number] [place] [address] Jan, [facility] [place] [facility] [address] [id number] [place] [address] Jan, [facility] [place] [facility] [address] [id number] [place] [address]- [id number] Jan, [facility] [place] [facility] [address] [id number] [place] [address] Jan, [facility] [place] [facility] [address] [id number] [place] [address] Jan, [facility] [place] [facility] [address] [id number] [place] [address] Jan, [facility] [place] [facility] [address] [id number] [place] [address] Jan, [facility] [address] [id number] [place] [address] Jan, [facility] [place] [facility] [address] [id number] [place] [address] Jan, [facility] [place] [facility] [address] [id number] [place] [address] Dec, [facility] [address] [id number] [place] [address] Nov, [facility] [place] [facility] [address] [id number] [place] [address] Nov, [facility] [address] [id number] [place] [address] Nov, [facility] [address] [id number] [place] [address] Oct, [facility] [address] [id number] [place] [address] Oct, [facility] [address] [id number] [place] [address] August, [facility] [address] [id number] [place] [address] Apr, [facility] [address] [id number] [place] [address] Apr, [facility] [place] [facility] [address] [id number] [place] [address] Feb, [facility] [place] [facility] [address] [id number] [place] [address] Feb, [facility] [place] [facility] [address] [id number] [place] [address] Dec, [facility] [place] [facility] [address] [id number] [place] [address] Dec, [facility] [address] [facility] [id number] [place] [address] Oct, [facility] [address] [facility] [id number] [place] [address] Oct, [facility] [address] [facility] [id number] [place] [address] Oct, [facility] [address] [facility] [id number] [place] [address] Jul, IMMUNIZATIONS No Known Immunizations SOCIAL HISTORY Never Assessed REASON FOR VISIT EMR-[facility] [place] PLAN OF CARE VITAL SIGNS MEDICATIONS Unknown [...] for psychosis/mental illness , last one in [place] at [facility] 4 years ago
--- OUTSIDE RECORDS SUMMARY | 2018-09-02 13:06 | XMS REPORT ---
Author Author Migration, Doctor Organization [facility] Address Unknown Phone Unavailable Care Team Providers Care Supervisor Modern Languages Name Role Phone Migration, Doctor Unavailable Unavailable PROBLEMS Type Condition ICD9-CM Code WHP36-KH Code Onset Dates Condition Status SNOMED Code Problem History of lupus Z87.39 Active 444290132 Problem OAB (overactive bladder) N32.81 Active 250097282 Problem Chronic pain syndrome G89.4 Active 814780092 Problem Type 2 diabetes mellitus without complication, without long-term current use of insulin E11.9 Active 287411090 Problem Depression with anxiety F41.8 Active 997584346 Problem Paranoid schizophrenia F20.0 Active 34203072 Problem Essential hypertension I10 Active 62590641 Problem Dyslipidemia E78.5 Active 487493705 Problem Schizoaffective disorder, depressive type F25.1 Active 32266495 Problem Seasonal allergic rhinitis due to other allergic trigger J30.89 Active 996716590 Problem DM neuro manif type II E11.49 Active 13940675 Problem Primary insomnia F51.01 Active 3557956 Problem Other allergic rhinitis J30.89 Active 184819610 Problem Menopausal syndrome (hot flashes) N95.1 Active 593025033 Problem Tobacco abuse Z72.0 Active 878722102 Problem Other seasonal allergic rhinitis J30.2 Active 856270552 Problem Hypothyroidism (acquired) E03.9 Active 627864156 Problem Gastroesophageal reflux disease, esophagitis presence not specified K21.9 Active 328383268 Problem Migraine without aura and without status migrainosus, not intractable G43.009 Active 024772472 Problem Cigarette nicotine dependence without complication F17.210 Active 70147575 Problem Morbid obesity due to excess calories E66.01 Active 997319868 Problem Allergic rhinitis, unspecified seasonality, unspecified trigger J30.9 Active 19150052 Problem Chronic obstructive pulmonary disease, unspecified COPD type J44.9 Active 29177867 Problem Gastroesophageal reflux disease without esophagitis K21.9 Active 212138832 Problem COPD exacerbation J44.1 Active 002774644 Problem Seasonal allergic rhinitis due to pollen J30.1 Active 03814857 Problem Diabetic polyneuropathy associated with type 2 diabetes mellitus E11.42 Active 978794318 Problem Type 2 diabetes mellitus with diabetic neuropathic arthropathy, 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 Active 953193528 ALLERGIES No Information ENCOUNTERS Encounter Location Date Diagnosis [place] [address] [place] [address] 44229- 8821 Sep, [place] [address] [place] [id number] [place] [address] 36353- 9620 Jul, [place] [address] [place] [id number] [place] [address] 87407- 3568 Jul, Cigarette nicotine dependence without complication F17.210 [place] [address] [place] [id number] [place] [address] 94948- 1270 Jul, Type 2 diabetes mellitus without complication, without long- term current use of insulin E11.9 and Hypothyroidism (acquired) E03.9 [place] [address] [place] [id number] [place] [address] 55934- 7908 Jul, Encounter for Medicare annual wellness exam Z00.00 ; Morbid obesity due to excess calories E66.01 ; Diabetic polyneuropathy associated with type 2 diabetes mellitus E11.42 ; Chronic obstructive pulmonary disease, unspecified COPD type J44.9 ; Schizoaffective disorder, depressive type F25.1 and Hypothyroidism (acquired) E03.9 [place] [address] [place] [address] 43743- 0791 Jun, Gastroesophageal reflux disease without esophagitis K21.9 [place] [address] [place] [id number] [place] [address] 20883- 9399 Jun, Paranoid schizophrenia F20.0 [place] [address] [place] [id number] [place] [address] 37014- 9993 Jun, Schizoaffective disorder, depressive type F25.1 [place] [address] [place] [id number] [place] [address] 55539- 1543 Jun, [place] [address] [place] [address] [address] 3294 20 Jun, 2018 Schizoaffective disorder, depressive type F25.1 [facility] [address] [place] [id number] [place] [address] 60609- 2647 Jun, Cigarette nicotine dependence without complication F17.210 [facility] [address] [place] [id number] [place] [address] 00017- 3842 18 Jun, 2018 Type 2 diabetes mellitus without complication, without long- term current use of insulin E11.9 [facility] [address] [place] [address] 29426- 6978 15 Jun, 2018 [facility] [address] [place] [id number] [place] [address] 53608- 4754 Jun, [facility] [address] [place] [id number] [place] [address] 82471- 3224 Jun, [facility] [address] [place] [id number] [place] [address] 54918- 8727 Jun, [facility] [address] [place] [id number] [place] [address] 26548- 9942 Jun, [facility] [address] [place] [id number] [place] [address] 55999- 2112 Jun, Paranoid schizophrenia F20.0 ; Type 2 diabetes mellitus without complication, without long-term current use of insulin E11.9 ; Hypothyroidism (acquired) E03.9 and Morbid obesity E66.01 [facility] [address] [place] [address] 32438- 9910 May, Paranoid schizophrenia F20.0 [facility] [address] [place] [id number] [place] [address] 84836- 2065 May, Hypothyroidism (acquired) E03.9 and Dyslipidemia E78.5 [facility] [address] [place] [address] 57134- 8326 May, Cigarette nicotine dependence without complication F17.210 [facility] [address] [place] [id number] [place] [address] 37067- 0162 18 May, 2018 [facility] [address] 34875- 6398 14 May, 2018 Type 2 diabetes mellitus without complication, without long- term current use of insulin E11.9 ; Essential hypertension I10 ; Hypothyroidism (acquired) E03.9 and Dyslipidemia E78.5 [facility] [address] 23108- 7609 May, [facility] [address] 14168- 4025 May, Schizoaffective disorder, depressive type F25.1 [place] [address] 88423- 8787 May, Paranoid schizophrenia F20.0 [place] [address] 12985- 1591 May, [facility] [address] [place] [address] May, [facility] [address] 42627- 3613 May, [facility] [address] 64517- 3532 May, Type 2 diabetes mellitus without complication, without long- term current use of insulin E11.9 ; Essential hypertension I10 ; Hypothyroidism (acquired) E03.9 and Dyslipidemia E78.5 [facility] [address] [place] [id number] [place] [address] 79426- 0348 May, [facility] [address] 62077- 0868 May, Acute nasopharyngitis J00 [facility] [address] [place] [id number] [place] [address] 31038 -5677 May, Allergic rhinitis, unspecified seasonality, unspecified trigger J30.9 [facility] [address] [place] [id number] [place] [address] 82574- 6285 May, [facility] [address] [place] [id number] [place] [address] 38894- 4988 Apr, Schizoaffective disorder, depressive type F25.1 [facility] [address] [place] [id number] [place] [address] 43931- 1064 Apr, [facility] [address] [place] [id number] [place] [address] 55086- 3342 Apr, Cigarette nicotine dependence without complication F17.210 [place] [address] [place] [id number] [place] [address] 31722- 7114 Apr, [facility] [address] [place] [id number] [place] [address] 60515- 1634 Apr, Cigarette nicotine dependence without complication F17.210 [place] [address] [place] [id number] [place] [address] 51682- 6049 Apr, [facility] [address] [place] [id number] [place] [address] 95555- 5602 Apr, Migraine without aura and without status migrainosus, not intractable G43.009 [place] [address] [place] [address] 82898- 6279 Apr, Migraine without aura and without status migrainosus, not intractable G43.009 [place] [address] [place] [id number] [place] [address] 28409- 8280 Mar, Schizoaffective disorder, depressive type F25.1 ; BMI 45.0- 49.9, adult Z68.42 and BMI 40.0-44.9, adult Z68.41 [place] [address] [place] [id number] [place] [address] 36282- 7492 Mar, Primary insomnia F51.01 [place] [address] [place] [id number] [place] [address] 62751- 1987 Mar, [place] [address] [place] [id number] [place] [address] 35109- 1537 Feb, Primary insomnia F51.01 [place] [address] 93293- 5810 Feb, [place] [address] [place] [id number] [place] [address] 02926- 3698 Jan, Schizoaffective disorder, depressive type F25.1 and BMI 45.0 -49.9, adult Z68.42 [place] [address] [place] [id number] [place] [address] 32790- 6381 Jan, [place] [address] 63470- 0984 Jan, Type 2 diabetes mellitus with diabetic neuropathic arthropathy, 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 ; Menopausal syndrome (hot flashes) N95.1 and BMI 40.0-44.9, adult Z68.41 [place] [address] [place] [id number] [place] [address] 12509- 3303 Jan, Paranoid schizophrenia F20.0 [place] [address] [place] [id number] [place] [address] 57027- 5660 Jan, [place] [address] [place] [id number] [place] [address] 46291- 2656 Jan, Schizoaffective disorder, depressive type F25.1 [place] [address] [place] [id number] [place] [address] 88200- 3420 Jan, [place] [address] [place] [id number] [place] [address] 42737- 9129 02 Jan, 2018 Chronic obstructive pulmonary disease, unspecified COPD type J44.9 ; BMI 45.0-49.9, adult Z68.42 ; Type 2 diabetes mellitus without complication, without long-term current use of insulin E11.9 ; Hypothyroidism ( acquired) E03.9 ; Encounter for immunization Z23 ; Gastroesophageal reflux disease without esophagitis K21.9 ; Primary insomnia F51.01 and Acute nasopharyngitis J00 [facility] [address] [place] [address] 58240- 6574 27 Dec, 2017 [facility] [address] [place] [id number] [place] [address] 59843- 7919 21 Dec, 2017 Schizoaffective disorder, depressive type F25.1 and BMI 45.0 -49.9, adult Z68.42 [facility] [address] [place] [id number] [place] [address] 72832- 2483 Dec, [facility] [address] [place] [id number] [place] [address] 16038- 3626 18 Dec, 2017 [facility] [address] [place] [id number] [place] [address] 91273- 9923 18 Dec, 2017 Acute non-recurrent frontal sinusitis J01.10 [facility] [address] [place] [id number] [place] [address] 62067- 5601 18 Dec, 2017 Acute non-recurrent frontal sinusitis J01.10 ; Weakness of left leg R29.898 ; At high risk for falls Z91.81 and BMI 45.0-49.9, adult Z68.42 [facility] [address] [place] [id number] [place] [address] 14281- 7145 17 Dec, 2017 [facility] [address] [place] [address] 87730- 7415 17 Dec, 2017 [facility] [address] [place] [id number] [place] [address] 98803- 4790 10 Dec, 2017 Schizoaffective disorder, depressive type F25.1 [facility] [address] [place] [address] 68434 -4934 10 Dec, 2017 Acute nasopharyngitis J00 [facility] [address] [place] [id number] [place] [address] 56450- 1858 05 Dec, 2017 Schizoaffective disorder, depressive type F25.1 [facility] [address] [place] [id number] [place] [address] 14537- 5837 Dec, [place] [address] [address]- 8275 Nov, Schizoaffective disorder, depressive type F25.1 and BMI 45.0 -49.9, adult Z68.42 [place] [address] [address]- 5311 Nov, [place] [address] [place] [id number] [place] [address] 22763- 9809 Nov, [place] [address] [place] [address] 33048- 0773 Nov, Schizoaffective disorder, depressive type F25.1 [place] [address] [place] [id number] [place] [address] 32889- 1237 Nov, Well woman exam Z01.419 ; BMI 45.0-49.9, adult Z68.42 ; Screening breast examination Z12.31 and Dietary counseling and surveillance Z71.3 [place] [address] [address]- 1192 Nov, Paranoid schizophrenia F20.0 [place] [address] [place] [address] 94249- 3133 Nov, Gastroesophageal reflux disease, esophagitis presence not specified K21.9 [place] [address] [address]- 0457 Oct, Paranoid schizophrenia F20.0 [facility] [place] [id number] [place] [address] Oct Chronic pain syndrome G89.4 and Schizoaffective disorder, depressive type F25.1 [place] [address] [address]- 0448 Oct, Chronic pain syndrome G89.4 and Schizoaffective disorder, depressive type F25.1 [place] [address] [address]- 7522 Oct, Type 2 diabetes mellitus without complication, without long- term current use of insulin E11.9 [place] [address] [place] [id number] [place] [address] 56817- 1201 12 Oct, 2017 Essential hypertension I10 and DM neuro manif type II E11.49 [place] [address] [place] [id number] [place] [address] 59828- 4081 Oct, [place] [address] [place] [id number] [place] [address] 38484- 7613 Oct, Schizoaffective disorder, depressive type F25.1 and BMI 45.0 -49.9, adult Z68.42 [place] [address] 35182- 7462 Oct, [place] [address] [place] [id number] [place] [address] 54424- 3003 Oct, Paranoid schizophrenia F20.0 [place] [address] [place] [id number] [place] [address] 38932- 6726 Oct, Type 2 diabetes mellitus with diabetic neuropathic arthropathy, 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 ; Essential hypertension I10 ; Hypothyroidism (acquired) E03.9 ; Chronic obstructive pulmonary disease, unspecified COPD type J44.9 and Diabetic polyneuropathy associated with type 2 diabetes mellitus E11.42 [place] [address] [place] [id number] [place] [address] 39876- 5688 Sep, Paranoid schizophrenia F20.0 [place] [address] [place] [id number] [place] [address] 73632- 3601 Sep, Paranoid schizophrenia F20.0 and BMI 45.0-49.9, adult Z68.42 [place] [address] [place] [id number] [place] [address] 10691- 8498 Sep, Schizoaffective disorder, depressive type F25.1 [place] [address] [place] [id number] [place] [address] 84774- 4848 Sep, [place] [address] [place] [id number] [place] [address] 18342- 6206 Sep, Paranoid schizophrenia F20.0 [facility] [address] [place] [id number] [place] [address] 09858- 8353 Sep, [facility] [address] [place] [id number] [place] [address] 47592- 8037 Sep, Hypothyroidism (acquired) E03.9 [facility] [address] [place] [id number] [place] [address] 24454- 0648 Sep, [facility] [address] [place] [id number] [place] [address] 46153- 2613 August, Schizoaffective disorder, depressive type F25.1 [facility] [address] [place] [id number] [place] [address] 82264- 0234 August, [facility] [address] [place] [id number] [place] [address] 28498- 8302 August, [facility] [address] [place] [id number] [place] [address] 31703- 4291 August, [facility] [address] [place] [id number] [place] [address] 94133- 0528 August, Paranoid schizophrenia F20.0 [facility] [address] [place] [id number] [place] [address] 14085- 5196 August, History of lupus Z87.39 and Chronic pain syndrome G89.4 [facility] [address] [place] [id number] [place] [address] 15685- 9217 August, [facility] [address] [place] [address] 37369 -6161 August, Seasonal allergic rhinitis, unspecified trigger J30.2 and BMI 45.0-49.9, adult Z68.42 [facility] [address] [address]- 3841 Jul, Schizoaffective disorder, depressive type F25.1 [facility] [address] [place] [address]- 3178 19 Jul, 2017 [facility] [address] 13015- 1430 13 Jul, 2017 Hypothyroidism (acquired) E03.9 [facility] [address] 38800- 0535 11 Jul, 2017 Chronic obstructive pulmonary disease, unspecified COPD type J44.9 and Type 2 diabetes mellitus without complication, without long-term current use of insulin E11.9 [facility] [address] 53076- 6105 10 Jul, 2017 Paranoid schizophrenia F20.0 [place] [address] 19398- 9683 Jun, Hypothyroidism (acquired) E03.9 and Seasonal allergic rhinitis due to pollen J30.1 [facility] [address] 28384 -9433 Jun, Shortness of breath at rest R06.02 ; COPD exacerbation J44.1 and BMI 45.0-49.9, adult Z68.42 [place] [address] 30435- 9774 Jun, [facility] [address] 55455- 8535 Jun, Paranoid schizophrenia F20.0 ; Depression with anxiety F41.8 and BMI 45.0-49.9, adult Z68.42 [facility] [address] [place] [id number] [place] [address] 25306- 4031 Jun, Schizoaffective disorder, depressive type F25.1 [facility] [address] [id number] 13 Jun, 2017 Dental caries K02.9 [facility] [address] 59284- 3509 12 Jun, 2017 Paranoid schizophrenia F20.0 [facility] [address] [place] [address] 46165- 3520 May, Migraine without aura and without status migrainosus, not intractable G43.009 ; DM neuro manif type II E11.49 and Type 2 diabetes mellitus without complication, without long-term current use of insulin E11.9 [facility] [address] [place] [id number] [place] [address] 75529- 0237 May, Migraine without aura and without status migrainosus, not intractable G43.009 [facility] [address] [place] [id number] [place] [address] 29196- 5739 May, Depression with anxiety F41.8 [facility] [address] [id number] May, [place] [address] 91970- 3750 May, [place] [address] 24562- 8603 May, [place] [address] [place] [id number] [place] [address] 36215- 6089 May, Hypothyroidism (acquired) E03.9 [place] [address] [place] [id number] [place] [address] 30118- 3033 May, Paranoid schizophrenia F20.0 [place] [address] [place] [id number] [place] [address] 26704- 9842 May, Type 2 diabetes mellitus without complication, [...] N32.81 and Controlled substance agreement signed Z79.899 [facility] [address] [place] [id number] [place] [address] 25658- 7692 02 May, 2017 Controlled substance agreement signed Z79.899 [facility] [address] [place] [id number] [place] [address] 71257- 4618 Apr, [facility] [address] [id number] Apr, Dental examination Z01.20 [facility] [address] 54916- 7648 Apr, Paranoid schizophrenia F20.0 [facility] [address] [place] [id number] [place] [address] 99284- 8805 Apr, Hypertension, unspecified type I10 [facility] [address] [place] [id number] [place] [address] 86949- 1355 Apr, Paranoid schizophrenia F20.0 [facility] [address] [place] [id number] [place] [address] 53412- 3110 Apr, [facility] [address] [place] [id number] [place] [address] 91807- 7873 Apr, Tobacco abuse Z72.0 [facility] [address] [place] [id number] [place] [address] 48900- 4144 Apr, [facility] [address] [place] [id number] [place] [address] 32011- 6042 Mar, [facility] [address] [place] [id number] [place] [address] 28846- 1112 Mar, Paranoid schizophrenia F20.0 and BMI 45.0-49.9, adult Z68.42 [facility] [id number] [place] [id number]- [address]507 Mar, Schizoaffective disorder, depressive type F25.1 [facility] [address] [address]- [address] 14 Mar, [address] [place] [address] [address]- [address] Mar, Hypothyroidism, unspecified type E03.9 [place] [address] [address]- [address] Mar, Schizoaffective disorder, depressive type F25.1 [facility] [address] [address] Feb, Gastroenteritis K52.9 and BMI 45.0-49.9, adult Z68.42 [place] [address] [address]- [address]42 Feb, [place] [address] [address] Feb, [place] [address] [address]- [address] Feb, [place] [address] [address]- [address] Feb, [place] [address] [address]- [address] Feb, Paranoid schizophrenia F20.0 [place] [address] [address]- [address] Feb, Gastroesophageal reflux disease without esophagitis K21.9 ; Other seasonal allergic rhinitis J30.2 ; Other allergic rhinitis J30.89 ; Tobacco abuse Z72.0 and BMI 40.0-44.9, adult Z68.41 [place] [address] [address]- [address] Feb, Onychomycosis B35.1 ; Callus of foot L84 and DM neuro manif type II E11.49 [place] [address] [address]- [address]5 Jan, Chronic allergic rhinitis J30.9 [place] [id number] [place] [address]- 1771 16 Jan, 2017 [facility] [address] [address]- 1985 Jan, Schizoaffective disorder, depressive type F25.1 [facility] [address] 20977- 5679 10 Jan, 2017 [facility] [address] 87492 -7551 07 Jan, 2017 Sore throat J02.9 and Seasonal allergic rhinitis due to other allergic trigger J30.89 [place] [address] 85468- 9610 Jan, [place] [address] 36531- 2975 Jan, [facility] [address] 08372 -0842 Jan, Chronic allergic rhinitis J30.9 [facility] [address] [place] [id number] [place] [address] 48879- 5549 27 Dec, 2016 Paranoid schizophrenia F20.0 ; Primary insomnia F51.01 and Schizoaffective disorder, depressive type F25.1 [place] [address] [place] [id number] [place] [address] 49881- 0781 21 Dec, 2016 Chronic pain syndrome G89.4 ; Cervicalgia of occipito- atlanto-axial region M54.2 ; Menopausal syndrome (hot flashes) N95.1 and Encounter for immunization Z23 [facility] [address] [id number] [place] [address] 76720- 1636 14 Dec, 2016 [place] [address] 68482- 5859 13 Dec, 2016 [facility] [address] [id number] [place] [address] 64268- 5600 08 Dec, 2016 Paranoid schizophrenia F20.0 [place] [id number] [place] [address] 72696- 2180 Dec, Schizoaffective disorder, depressive type F25.1 [place] [address] [place] [address] [id number] [place] [address] 30437- 0848 Nov, Hypothyroidism, unspecified type E03.9 [facility] [id number] [place] [address] 53620 -8570 Nov, Acute seasonal allergic rhinitis due to other allergen J30.89 [place] [address] [address] [id number] [place] [address] 51654- 4306 Nov, [place] [address] 41927- 8108 Nov, Hypothyroidism, unspecified type E03.9 and Other elevated white blood cell (WBC) count D72.828 [place] [address] [address] [id number] [place] [address] 78516- 6533 Nov, Schizoaffective disorder, depressive type F25.1 [place] [address] [id number] [place] [address] 15704- 5805 Nov, Paranoid schizophrenia F20.0 [place] [address] [address] [id number] [place] [address] 67208- 8672 Nov, Type 2 diabetes mellitus without complication, without long- term current use of insulin E11.9 ; Morbid obesity due to excess calories E66.01 and Chronic pain syndrome G89.4 [place] [id number] [place] [address] 46930- 0023 Oct, Paranoid schizophrenia F20.0 [place] [address] [id number] [place] [address] 01498- 6782 Oct, [place] [address] [id number] [place] [address] 76434- 5450 Oct, Schizoaffective disorder, depressive type F25.1 [place] [address] [address] [id number] [place] [address] 95674- 8519 Oct, Hypothyroidism, unspecified type E03.9 and Other elevated white blood cell (WBC) count D72.828 [facility] [id number] [place] [address] 84532- 0573 Oct, Morbid obesity due to excess calories E66.01 ; Chronic obstructive pulmonary disease, unspecified COPD type J44.9 ; History of lupus Z87.39 ; Hypothyroidism, unspecified type E03.9 ; Gastroesophageal reflux disease without esophagitis K21.9 ; Primary insomnia F51.01 and Chronic pain syndrome G89.4 [facility] [id number] [address] 6913 Sep, [place] [address] [id number] [place] [address] 21358- 5660 Sep, [place] [address] [id number] [place] [address] 54916- 5104 Sep, [facility] [id number] [place] [address] 05350- 4812 Sep, Paranoid schizophrenia F20.0 [facility] [id number] [place] [address] 68860- 1653 Sep, [facility] [id number] [place] [address] 16895- 7928 Sep, Paranoid schizophrenia F20.0 [facility] [address] [id number] [place] [address] 02251- 5854 Sep, [facility] [id number] [place] [address] 39915- 8983 August, Paranoid schizophrenia F20.0 [facility] [id number] [place] [address] 23341- 6533 Jul, [facility] [id number] [place] [address] 82638- 4898 Jul, Type 2 diabetes mellitus without complication, without long- term current use of insulin E11.9 ; Morbid obesity due to excess calories E66.01 ; Depression with anxiety F41.8 ; Hypothyroidism, unspecified type E03.9 ; Seasonal allergic rhinitis due to other allergic trigger J30.89 ; Pain, dental K08.89 and Gastroesophageal reflux disease without esophagitis K21.9 [facility] [address] [address] 12 Jul, 2016 Dental examination Z01.20 [place] [address] [address] [id number] [place] [address] 92103- 5464 07 Jul, 2016 Paranoid schizophrenia F20.0 [place] [address] [id number] [place] [address] 19954- 8220 13 Jun, 2016 Paranoid schizophrenia F20.0 and Depression with anxiety F41.8 [place] [address] [id number] [place] [address] 75754- 6017 Jun, Paranoid schizophrenia F20.0 and Depression with anxiety F41.8 [place] [address] [id number] [place] [address] 90997- 2212 Jun, [place] [address] [id number] [place] [address] 32567- 9498 Jun, [facility] [place] [id number] [place] [address] 92910 -8630 Jun, Seasonal allergic rhinitis due to other allergic trigger J30.89 [facility] [address] [id number] [place] [address] 66548 -3676 May, Sore throat J02.9 ; Other viral agents as the cause of diseases classified elsewhere B97.89 and Acute upper respiratory infection, unspecified J06.9 [place] [address] [id number] [place] [address] 86163- 1745 May, Paranoid schizophrenia F20.0 and Depression with anxiety F41.8 [place] [id number] [place] [address] 15659- 9333 Apr, Other seasonal allergic rhinitis J30.2 [place] [address] [id number] [place] [address] 19464- 7155 Apr, Paranoid schizophrenia F20.0 and Depression with anxiety F41.8 [facility] [id number] [place] [address] 79563 -7583 Apr, Bronchitis J40 and Sore throat J02.9 [place] [address] [address] [id number] [place] [address] 35634- 2272 Apr, Type 2 diabetes mellitus without complication, without long- term current use of insulin E11.9 [facility] [id number] [place] [address] 11093 -1649 Apr, Bronchitis J40 [place] [address] 70859- 8314 Apr, [place] [address] [address] [id number] [place] [address] 11475- 8236 Apr, [place] [address] [address] [id number] [place] [address] 74615- 3738 Mar, Type 2 diabetes mellitus without complication, [...] R60.9 and Other seasonal allergic rhinitis J30.2 [place] [address] [address] [id number] [place] [address] 14688- 6925 Mar, Paranoid schizophrenia F20.0 and Depression with anxiety F41.8 [place] [address] [address] [id number] [place] [address] 47704- 4263 Feb, [place] [address] [place] [address] [id number] [place] [address] 94379- 2433 Feb, [address] [place] [address]- 4381 Feb, [facility] [id number] [place] [address] 45886- 9707 Feb, [facility] [id number] [place] [address] 10135- 6552 Feb, Type 2 diabetes mellitus without complication, without long- term current use of insulin E11.9 ; ARIAS on CPAP G47.33 and Preoperative evaluation to rule out surgical contraindication Z01.818 [facility] [id number] [place] [address] 38022- 9087 09 Feb, 2016 Paranoid schizophrenia F20.0 and Depression with anxiety F41.8 [facility] [id number] [place] [address] 66543- 7360 Jan, [facility] [id number] [place] [address] 78060- 8935 Jan, Paranoid schizophrenia F20.0 and Depression with anxiety F41.8 [facility] [id number] [place] [address] 71807- 5854 Jan, [facility] [id number] [place] [address] 28838- 0973 Jan, Muscle strain T14.8 [facility] [address] [id number] [place] [address] 62182- 6191 Jan, Paranoid schizophrenia F20.0 [facility] [address] [id number] [place] [address] 50436- 1158 Jan, [facility] [id number] [place] [address] 00458- 3480 Jan, Paranoid schizophrenia F20.0 and Depression with anxiety F41.8 [facility] [address] [address]- 7825 Jan, [facility] [id number] [place] [address] 43703- 6286 Jan, [facility] [address] [address]- 8710 28 Dec, 2015 [facility] [id number] [place] [address] 12962- 0114 23 Dec, 2015 Paranoid schizophrenia F20.0 [facility] [id number] [place] [address] 42802- 8185 16 Dec, 2015 Paranoid schizophrenia F20.0 and Depression with anxiety F41.8 [facility] [id number] [place] [address] 14448- 3339 Nov, [place] [address] [address] [id number] [place] [address] 59542- 0767 Nov, Paranoid schizophrenia F20.0 [place] [address] [address] [id number] [place] [address] 20581- 4917 Nov, Paranoid schizophrenia F20.0 and Depression with anxiety F41.8 [place] [address] [place] [address] 39780- 0476 Nov, Type 2 diabetes mellitus without complication, without long- term current use of insulin E11.9 ; Paranoid schizophrenia F20.0 ; Chronic obstructive pulmonary disease, unspecified COPD type J44.9 ; Morbid obesity due to excess calories E66.01 and Parkinsonian tremor G20 [facility] [address] [address]- 5202 Nov, [facility] [address] [address]- 4140 Oct, Paranoid schizophrenia F20.0 [facility] [address] [address]- 3649 Oct, Paranoid schizophrenia F20.0 [facility] [address] [address]- 8873 Oct, Paranoid schizophrenia F20.0 and Depression with anxiety F41.8 [facility] [address] [id number] [place] [address] 24219- 8801 Oct, [place] [id number] [place] [address] 79788- 0388 Oct, Paranoid schizophrenia F20.0 and Depression with anxiety F41.8 [place] [id number] [place] [address] 31848- 3113 Oct, Nasal sore J34.89 [place] [address] [id number] [place] [address] 22132- 1021 Oct, Type 2 diabetes mellitus without complication, without long- term current use of insulin E11.9 ; Depression with anxiety F41.8 ; Hypothyroidism, unspecified type E03.9 and History of lupus Z87.39 [place] [address] [address] [id number] [place] [address] 53101- 7327 Oct, [place] [address] [address] [id number] [place] [address] 00801- 6884 Oct, Type 2 diabetes mellitus without complication, [...] edema R60.9 and History of lupus Z87.39 [place] [address] [address]- 8318 Feb, [place] [address] [id number] [place] [address] 32290- 7893 Jan, [place] [id number] [place] [address] 07820- 5069 Jan, [place] [address] [address] [id number] [place] [address] 65478- 4842 Jan, [facility] [address] [facility] [id number] [place] [address]- 1496 Dec, [facility] [id number] [place] [address]- 1204 Nov, [facility] [address] [facility] [id number] [place] [address]- 4912 Nov, [facility] [address] [place] [id number] [place] [address], [place] [address]- 7588 Oct, [facility] [address] [place] [id number] [place] [address]- 9853 Oct, [facility] [address] [place] [address]- 8038 Oct, [facility] [id number] [place] [address]- 5066 Sep, Allergic rhinitis 477.9 [facility] [address] [address]- 7043 Sep, Rhinitis, allergic 477.9 [facility] [address] [address]- 1453 Sep, Rhinitis, allergic 477.9 [facility] [address] [address]- 0777 Sep, [facility] [address], [place] [address]- 4607 August, [facility] [id number] [address]- 7625 August, [facility] [address] [place] [address]- 2350 August, [facility] [address] [place] [id number]- 6140 Jul, [facility] [id number] 5957 Jul, [facility] [place] [facility] [address] [id number] [place] [address]- 3884 13 Jul, 2014 [facility] [place] [facility] [address] [id number] [place] [address]- 5188 16 Jun, 2014 [facility] [place] [facility] [address] [id number] [place] [address]- 7891 16 Jun, 2014 [facility] [place] [facility] [address] [id number] [place] [address]- 2278 Jun, [facility] [place] [facility] [address] [id number] [place] [address]- 2721 Jun, [facility] [place] [facility] [address] [id number] [place] [address]- 8317 Jun, [facility] [place] [facility] [address] [id number] [place] [address]- 3106 Jun, [facility] [place] [facility] [address] [id number] [place] [address]- 6830 Jun, [facility] [place] [facility] [address] [id number] [place] [address]- 0073 Jun, [facility] [place] [facility] [address] [id number] [place] [address]- 3868 May, [facility] [place] [facility] [address] [id number] [place] [address]- 1162 May, [facility] [place] [facility] [address] [id number] [place] [address]- 9889 May, [facility] [place] [facility] [address] [id number] [place] [address]- 1971 May, [facility] [place] [facility] [address] [id number] [place] [address]- 9946 Apr, [facility] [place] [facility] [address] [id number] [place] [address]- 0435 Mar, [facility] [place] [facility] [address] [id number] [place] [address]- 8439 Mar, [facility] [place] [facility] [address] [id number] [place] [address]- 1473 Mar, [facility] [place] [facility] [address] [id number] [place] [address]- 5179 Mar, [facility] [place] [facility] [address] [id number] [place] [address]- 2647 Mar, [facility] [place] [facility] [address] [id number] [place] [address]- 7072 Mar, [facility] [place] [facility] [address] [id number] [place] [address]- 0256 Mar, [facility] [place] [facility] [address] [id number] [place] [address]- 5891 Mar, [facility] [place] [facility] [address] [id number] [place] [address]- 9284 Mar, [facility] [place] [facility] [address] [id number] [place] [address]- 7330 Feb, [facility] [place] [facility] [address] [id number] [place] [address]- 4248 Feb, [facility] [place] [facility] [address] [id number] [place] [address]- 0834 Feb, [facility] [place] [facility] [address] [id number] [place] [address]- 3642 17 Feb, 2014 [facility] [place] [facility] [address] [id number] [address]- 1927 Feb, [facility] [place] [facility] [address] [id number] [place] [address]- 3519 14 Feb, 2014 [facility] [place] [facility] [address] [id number] [place] [address]- 3772 Feb, [facility] [place] [facility] [address] [id number] [place] [address]- 5187 Feb, [facility] [place] [facility] [address] [id number] [place] [address]- 2866 23 Jan, 2014 [facility] [place] [facility] [address] [id number] [place] [address]- 2235 23 Jan, 2014 [facility] [place] [facility] [address] [id number] [place] [address]- 5417 16 Jan, 2014 [facility] [place] [facility] [address] [id number] [place] [address]- 1767 16 Jan, 2014 [facility] [place] [facility] [address] [id number] [place] [address]- 8772 15 Jan, 2014 [facility] [place] [facility] [address] [id number] [place] [address]- 5908 15 Jan, 2014 [facility] [place] [facility] [address] [id number] [place] [address]- 0076 14 Jan, 2014 [facility] [place] [facility] [address] [id number] [place] [address]- 0276 14 Jan, 2014 [facility] [place] [facility] [address] [id number] [place] [address]- 8615 14 Jan, 2014 [facility] [place] [facility] [address] [id number] [place] [address]- 2209 14 Jan, 2014 [facility] [place] [facility] [address] [id number] [place] [address]- 1180 18 Dec, 2013 [facility] [place] [facility] [address] [id number] [place] [address]- 5630 18 Dec, 2013 [facility] [place] [facility] [address] [id number] [place] [address]- 6525 10 Dec, 2013 [facility] [place] [facility] [address] [id number] [place] [address]- 2546 10 Dec, 2013 [facility] [place] [facility] [address] [id number] [place] [address]- 4103 22 Nov, 2013 [facility] [place] [facility] [address] [id number] [place] [address]- 8058 Nov, [facility] [place] [facility] [address] [id number] [place] [address]- 1457 Nov, [facility] [place] [facility] [address] [id number] [place] [address]- 7027 Nov, [facility] [place] [facility] [address] [id number] [place] [address]- 4750 Nov, [facility] [place] [facility] [address] [id number] [place] [address]- 6918 Oct, [facility] [place] [facility] [address] [id number] [place] [address]- 6024 Oct, [facility] [place] [facility] [address] [id number] [place] [address]- 5808 Oct, [facility] [place] [facility] [address] [id number] [place] [address]- 2235 Oct, [facility] [place] [facility] [address] [id number] [place] [address]- 6636 Sep, [facility] [place] [facility] [address] [id number] [place] [address]- 5981 Sep, [facility] [place] [facility] [address] [id number] [place] [address]- 0581 Sep, [facility] [place] [facility] [address] [id number], [place] [address] Sep, [facility] [place] [facility] [address] [id number], [place] [address] Sep, [facility] [place] [facility] [address] [id number] [place] [address] Sep, [facility] [place] [facility] [address] [id number] [place] [address] Sep, [facility] [place] [facility] [address] [id number] [place] [address] Sep, [facility] [place] [facility] [address] [id number] [place] [address] August, [facility] [address] [id number] [place] [address] August, [facility] [place] [facility] [address] [id number] [place] [address] August, [facility] [address] [id number] [place] [address] August, [facility] [place] [facility] [address] [id number] [place] [address] August, [facility] [place] [facility] [address] [id number] [place] [address] August, [facility] [place] [facility] [address] [id number] [place] [address] August, [facility] [address] [id number] [place] [address] Jul, [facility] [place] [facility] [address] [id number] [place] [address] Jul, [facility] [place] [facility] [address] [id number] [place] [address] Jul, [facility] [address] [id number] [place] [address] Jul, [facility] [place] [facility] [address] [id number] [place] [address] Jul, [facility] [place] [facility] [address] [id number] [place] [address] Jul, [facility] [place] [facility] [address] [id number] [place] [address] Jul, [facility] [place] [facility] [address] [id number] [place] [address] Jul, [facility] [place] [facility] [address] [id number] [place] [address] Jul, [facility] [place] [facility] [address] [id number] [place] [address] Jul, [facility] [place] [facility] [address] [id number] [place] [address] Jul, [facility] [place] [facility] [address] [id number] [place] [address] Jul, [facility] [place] [facility] [address] [id number] [place] [address]- [address] Jun, [facility] [place] [facility] [address] [id number] [place] [address] Jun, [facility] [place] [facility] [address] [id number] [place] [address] Jun, [facility] [place] [facility] [address] [id number] [place] [address] Jun, [facility] [place] [facility] [address] [id number] [place] [address]- [address] Jun, [facility] [place] [facility] [address] [id number] [place] [address] May, [facility] [place] [facility] [address] [id number] [place] [address]- [address] May, [facility] [place] [facility] [address] [id number] [place] [address] May, [facility] [place] [facility] [address] [id number] [place] [address] May, [facility] [place] [facility] [address] [id number] [place] [address] May, [facility] [place] [facility] [address] [id number] [place] [address] May, [facility] [place] [facility] [address] [facility] [id number] [place] [address] May, [facility] [place] [facility] [address] [id number] [place] [address] May, [facility] [address] [id number] [place] [address] Mar, [facility] [place] [facility] [address] [id number] [place] [address] Mar, [facility] [address] [id number] [place] [address] Mar, [facility] [place] [facility] [address] [id number] [place] [address] Mar, [facility] [address] [id number] [place] [address] Mar, [facility] [place] [facility] [address] [id number] [place] [address] Mar, [facility] [address] [id number] [place] [address] Feb, [facility] [place] [facility] [address] [id number] [place] [address] Feb, [facility] [place] [facility] [address] [id number] [place] [address] Jan, [facility] [place] [facility] [address] [id number] [place] [address] Jan, [facility] [place] [facility] [address] [id number] [place] [address] Jan, [facility] [place] [facility] [address] [id number], [place] [address] Jan, [facility] [place] [facility] [address] [id number] [place] [address] Jan, [facility] [place] [facility] [address] [id number] [place] [address] Jan, [facility] [place] [facility] [address] [id number], [place] [address] Jan, [facility] [place] [facility] [address] [id number] [place] [address] Jan, [facility] [address] [id number] [place] [address] Jan, [facility] [place] [facility] [address] [id number] [place] [address] 254 Jan, [facility] [place] [facility] [address] [id number] [place] [address] Dec, [facility] [address] [id number] [place] [address] Nov, [facility] [place] [facility] [address] [id number] [place] [address] Nov, [facility] [address] [id number] [place] [address] Nov, [facility] [address] [id number] [place] [address] Oct, [facility] [address] [id number] [place] [address] Oct, [facility] [address] [id number] [place] [address] August, [facility] [address] [id number] [place] [address] Apr, [facility] [address] [id number] [place] [address] Apr, [facility] [place] [facility] [address] [id number] [place] [address] Feb, [facility] [place] [facility] [address] [id number] [place] [address] Feb, [facility] [place] [facility] [address] [id number] [place] [address] Dec, [facility] [place] [facility] [address] [id number] [place] [address] Dec, [facility] [address] [facility] [id number] [place] [address] Oct, [facility] [address] [facility] [id number], [place] [address] Oct, [facility] [address] [facility] [id number], [place] [address] Oct, [facility] [address] [facility] [id number], [place] [address] Jul, IMMUNIZATIONS No Known Immunizations SOCIAL HISTORY Never Assessed REASON FOR VISIT EMR-[facility] PLAN OF CARE VITAL SIGNS MEDICATIONS Unknown [...] for psychosis/mental illness , last one in [place] at [facility] 4 years ago
--- OUTSIDE RECORDS SUMMARY | 2018-09-02 13:07 | XMS REPORT ---
Author Author Migration, Doctor Organization [facility] Address Unknown Phone Unavailable Care Team Providers Care Political Advisor Name Role Phone Migration, Doctor Unavailable Unavailable PROBLEMS Type Condition ICD9-CM Code ZPK85-OT Code Onset Dates Condition Status SNOMED Code Problem History of lupus Z87.39 Active 663146006 Problem OAB (overactive bladder) N32.81 Active 890902286 Problem Chronic pain syndrome G89.4 Active 031216271 Problem Type 2 diabetes mellitus without complication, without long-term current use of insulin E11.9 Active 747833635 Problem Depression with anxiety F41.8 Active 561523866 Problem Paranoid schizophrenia F20.0 Active 96339831 Problem Essential hypertension I10 Active 72785651 Problem Dyslipidemia E78.5 Active 867431890 Problem Schizoaffective disorder, depressive type F25.1 Active 26913709 Problem Seasonal allergic rhinitis due to other allergic trigger J30.89 Active 858786906 Problem DM neuro manif type II E11.49 Active 28648973 Problem Primary insomnia F51.01 Active 6428489 Problem Other allergic rhinitis J30.89 Active 172836066 Problem Menopausal syndrome (hot flashes) N95.1 Active 106166405 Problem Tobacco abuse Z72.0 Active 845557030 Problem Other seasonal allergic rhinitis J30.2 Active 141538938 Problem Hypothyroidism (acquired) E03.9 Active 989187540 Problem Gastroesophageal reflux disease, esophagitis presence not specified K21.9 Active 112026890 Problem Migraine without aura and without status migrainosus, not intractable G43.009 Active 114049886 Problem Cigarette nicotine dependence without complication F17.210 Active 95284417 Problem Morbid obesity due to excess calories E66.01 Active 736524039 Problem Allergic rhinitis, unspecified seasonality, unspecified trigger J30.9 Active 37506754 Problem Chronic obstructive pulmonary disease, unspecified COPD type J44.9 Active 17918036 Problem Gastroesophageal reflux disease without esophagitis K21.9 Active 512205095 Problem COPD exacerbation J44.1 Active 596504922 Problem Seasonal allergic rhinitis due to pollen J30.1 Active 35723241 Problem Diabetic polyneuropathy associated with type 2 diabetes mellitus E11.42 Active 790477246 Problem Type 2 diabetes mellitus with diabetic neuropathic arthropathy, 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 Active 391947910 ALLERGIES No Information ENCOUNTERS Encounter Location Date Diagnosis [place] [id number] [place] [address] 09263- 3477 Sep, [place] [address] [place] [id number] [place] [address] 61616- 0885 Jul, [place] [address] [place] [id number] [place] [address] 32234- 5189 Jul, Cigarette nicotine dependence without complication F17.210 [place] [address] [place] [id number] [place] [address] 33771- 2183 Jul, Type 2 diabetes mellitus without complication, without long- term current use of insulin E11.9 and Hypothyroidism (acquired) E03.9 [place] [address] [place] [id number] [place] [address] 99329- 1258 Jul, Encounter for Medicare annual wellness exam Z00.00 ; Morbid obesity due to excess calories E66.01 ; Diabetic polyneuropathy associated with type 2 diabetes mellitus E11.42 ; Chronic obstructive pulmonary disease, unspecified COPD type J44.9 ; Schizoaffective disorder, depressive type F25.1 and Hypothyroidism (acquired) E03.9 [place] [address] [place] [address] 01274- 6315 Jun, Gastroesophageal reflux disease without esophagitis K21.9 [place] [address] [place] [id number] [place] [address] 33210- 8482 Jun, Paranoid schizophrenia F20.0 [place] [address] [place] [id number] [place] [address] 39460- 7585 Jun, Schizoaffective disorder, depressive type F25.1 [place] [address] [id number] [place] [address] 91183- 7979 Jun, [place] [address] [place] [id number] [address] 1836 20 Jun, 2018 Schizoaffective disorder, depressive type F25.1 [facility] [address] [address] [id number] [place] [address] 08728- 9582 Jun, Cigarette nicotine dependence without complication F17.210 [facility] [address] [place] [id number] [place] [address] 99815- 2613 18 Jun, 2018 Type 2 diabetes mellitus without complication, without long- term current use of insulin E11.9 [facility] [address] [place] [address] 34603- 8330 15 Jun, 2018 [facility] [address] [id number] [place] [address] 86931- 7992 Jun, [facility] [address] [id number] [place] [address] 78990- 8230 Jun, [facility] [address] [address] [id number] [place] [address] 83919- 3903 Jun, [facility] [address] [id number] [place] [address] 17213- 5603 Jun, [facility] [address] [address] [id number] [place] [address] 84396- 7835 Jun, Paranoid schizophrenia F20.0 ; Type 2 diabetes mellitus without complication, without long-term current use of insulin E11.9 ; Hypothyroidism (acquired) E03.9 and Morbid obesity E66.01 [facility] [address] [place] [address] 85032- 7103 May, Paranoid schizophrenia F20.0 [facility] [address] [address] [id number] [place] [address] 29908- 4595 May, Hypothyroidism (acquired) E03.9 and Dyslipidemia E78.5 [facility] [address] [place] [address] 75765- 5558 May, Cigarette nicotine dependence without complication F17.210 [facility] [id number] [place] [address] 63389- 6822 18 May, 2018 [facility] [address] 36754- 7472 14 May, 2018 Type 2 diabetes mellitus without complication, without long- term current use of insulin E11.9 ; Essential hypertension I10 ; Hypothyroidism (acquired) E03.9 and Dyslipidemia E78.5 [facility] [address] 82267- 6700 May, [facility] [address] 52181- 0642 May, Schizoaffective disorder, depressive type F25.1 [place] [address] 71836- 9532 May, Paranoid schizophrenia F20.0 [place] [address] 30428- 9274 May, [facility] [address] [place] [address] May, [facility] [address] 75143- 7335 May, [facility] [address] 02981- 5929 May, Type 2 diabetes mellitus without complication, without long- term current use of insulin E11.9 ; Essential hypertension I10 ; Hypothyroidism (acquired) E03.9 and Dyslipidemia E78.5 [facility] [address] [address] [id number] [place] [address] 57728- 6311 May, [facility] [address] 43432- 2246 May, Acute nasopharyngitis J00 [facility] [address] [address] [id number] [place] [address] 54733 -0471 May, Allergic rhinitis, unspecified seasonality, unspecified trigger J30.9 [facility] [address] [id number] [place] [address] 90463- 2290 May, [facility] [address] [id number] [place] [address] 85361- 5770 Apr, Schizoaffective disorder, depressive type F25.1 [facility] [address] [id number] [place] [address] 76818- 9948 Apr, [facility] [address] [place] [id number] [place] [address] 68600- 9448 Apr, Cigarette nicotine dependence without complication F17.210 [place] [address] [place] [id number] [place] [address] 13519- 8103 Apr, [facility] [address] [address] [id number] [place] [address] 11205- 5792 Apr, Cigarette nicotine dependence without complication F17.210 [place] [address] [place] [id number] [place] [address] 55260- 4996 Apr, [facility] [address] [id number] [place] [address] 64230- 6479 Apr, Migraine without aura and without status migrainosus, not intractable G43.009 [place] [address] [place] [address] 29233- 8660 Apr, Migraine without aura and without status migrainosus, not intractable G43.009 [place] [address] [place] [id number] [place] [address] 61897- 3757 Mar, Schizoaffective disorder, depressive type F25.1 ; BMI 45.0- 49.9, adult Z68.42 and BMI 40.0-44.9, adult Z68.41 [place] [address] [place] [id number] [place] [address] 77042- 5783 Mar, Primary insomnia F51.01 [place] [address] [place] [id number] [place] [address] 64026- 1226 Mar, [place] [address] [id number] [place] [address] 48141- 7384 Feb, Primary insomnia F51.01 [place] [address] 59108- 4432 Feb, [place] [address] [place] [id number] [place] [address] 13519- 0770 Jan, Schizoaffective disorder, depressive type F25.1 and BMI 45.0 -49.9, adult Z68.42 [place] [address] [place] [id number] [place] [address] 93726- 9089 Jan, [place] [address] 73818- 8969 Jan, Type 2 diabetes mellitus with diabetic neuropathic arthropathy, 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 ; Menopausal syndrome (hot flashes) N95.1 and BMI 40.0-44.9, adult Z68.41 [place] [address] [place] [id number] [place] [address] 29503- 5513 Jan, Paranoid schizophrenia F20.0 [place] [address] [place] [id number] [place] [address] 96387- 5542 Jan, [place] [address] [place] [id number] [place] [address] 25289- 1743 Jan, Schizoaffective disorder, depressive type F25.1 [place] [address] [place] [id number] [place] [address] 34200- 7547 Jan, [place] [address] [place] [id number] [place] [address] 07692- 5347 02 Jan, 2018 Chronic obstructive pulmonary disease, unspecified COPD type J44.9 ; BMI 45.0-49.9, adult Z68.42 ; Type 2 diabetes mellitus without complication, without long-term current use of insulin E11.9 ; Hypothyroidism ( acquired) E03.9 ; Encounter for immunization Z23 ; Gastroesophageal reflux disease without esophagitis K21.9 ; Primary insomnia F51.01 and Acute nasopharyngitis J00 [facility] [address] [place] [address] 47690- 1668 27 Dec, 2017 [facility] [address] [place] [id number] [place] [address] 50680- 6783 21 Dec, 2017 Schizoaffective disorder, depressive type F25.1 and BMI 45.0 -49.9, adult Z68.42 [facility] [address] [place] [id number] [place] [address] 86099- 3355 Dec, [facility] [address] [id number] [place] [address] 13589- 0997 18 Dec, 2017 [facility] [address] [place] [id number] [place] [address] 12504- 2703 18 Dec, 2017 Acute non-recurrent frontal sinusitis J01.10 [facility] [address] [id number] [place] [address] 33652- 0574 18 Dec, 2017 Acute non-recurrent frontal sinusitis J01.10 ; Weakness of left leg R29.898 ; At high risk for falls Z91.81 and BMI 45.0-49.9, adult Z68.42 [facility] [address] [address] [id number] [place] [address] 10655- 6515 17 Dec, 2017 [facility] [address] [place] [address] 08707- 5371 17 Dec, 2017 [facility] [address] [address] [id number] [place] [address] 76404- 7011 10 Dec, 2017 Schizoaffective disorder, depressive type F25.1 [facility] [id number] [place] [address] 02840 -1839 10 Dec, 2017 Acute nasopharyngitis J00 [facility] [address] [id number] [place] [address] 53974- 7682 05 Dec, 2017 Schizoaffective disorder, depressive type F25.1 [facility] [address] [id number] [place] [address] 48329- 9912 Dec, [place] [address] [address]- 5269 Nov, Schizoaffective disorder, depressive type F25.1 and BMI 45.0 -49.9, adult Z68.42 [place] [address] [address]- 3004 Nov, [place] [address] [place] [id number] [place] [address] 70750- 9435 Nov, [place] [id number] [place] [address] 79013- 5889 Nov, Schizoaffective disorder, depressive type F25.1 [place] [address] [place] [id number] [place] [address] 48717- 5264 Nov, Well woman exam Z01.419 ; BMI 45.0-49.9, adult Z68.42 ; Screening breast examination Z12.31 and Dietary counseling and surveillance Z71.3 [place] [address] [address]- 6213 Nov, Paranoid schizophrenia F20.0 [place] [id number] [place] [address] 54821- 9721 Nov, Gastroesophageal reflux disease, esophagitis presence not specified K21.9 [place] [address] [address]- 3379 Oct, Paranoid schizophrenia F20.0 [facility] [place] [id number] [address] Oct Chronic pain syndrome G89.4 and Schizoaffective disorder, depressive type F25.1 [place] [address] [address]- 4087 Oct, Chronic pain syndrome G89.4 and Schizoaffective disorder, depressive type F25.1 [place] [address] [address]- 1202 Oct, Type 2 diabetes mellitus without complication, without long- term current use of insulin E11.9 [place] [address] [place] [id number] [place] [address] 54343- 8525 12 Oct, 2017 Essential hypertension I10 and DM neuro manif type II E11.49 [place] [address] [place] [id number] [place] [address] 79121- 4805 Oct, [place] [address] [place] [id number] [place] [address] 50596- 6486 Oct, Schizoaffective disorder, depressive type F25.1 and BMI 45.0 -49.9, adult Z68.42 [place] [address] 10247- 0525 Oct, [place] [address] [place] [id number] [place] [address] 56792- 2724 Oct, Paranoid schizophrenia F20.0 [place] [address] [place] [id number] [place] [address] 61619- 3205 Oct, Type 2 diabetes mellitus with diabetic neuropathic arthropathy, 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 ; Essential hypertension I10 ; Hypothyroidism (acquired) E03.9 ; Chronic obstructive pulmonary disease, unspecified COPD type J44.9 and Diabetic polyneuropathy associated with type 2 diabetes mellitus E11.42 [place] [address] [place] [id number] [place] [address] 14684- 1570 Sep, Paranoid schizophrenia F20.0 [place] [address] [place] [id number] [place] [address] 61864- 1921 Sep, Paranoid schizophrenia F20.0 and BMI 45.0-49.9, adult Z68.42 [place] [address] [place] [id number] [place] [address] 97915- 0772 Sep, Schizoaffective disorder, depressive type F25.1 [place] [address] [place] [id number] [place] [address] 10802- 4325 Sep, [place] [address] [place] [id number] [place] [address] 12400- 5552 Sep, Paranoid schizophrenia F20.0 [facility] [id number] [place] [address] 96224- 1007 Sep, [facility] [id number] [place] [address] 37887- 9224 Sep, Hypothyroidism (acquired) E03.9 [facility] [address] [id number] [place] [address] 31196- 1269 Sep, [facility] [id number] [place] [address] 74773- 6081 August, Schizoaffective disorder, depressive type F25.1 [facility] [id number] [place] [address] 50269- 2316 August, [facility] [id number] [place] [address] 36556- 1304 August, [facility] [id number] [place] [address] 70250- 8339 August, [facility] [id number] [place] [address] 46371- 6829 August, Paranoid schizophrenia F20.0 [facility] [id number] [place] [address] 71754- 4593 August, History of lupus Z87.39 and Chronic pain syndrome G89.4 [facility] [id number] [place] [address] 91986- 0764 August, [facility] [address] [place] [address] 51773 -0792 August, Seasonal allergic rhinitis, unspecified trigger J30.2 and BMI 45.0-49.9, adult Z68.42 [facility] [address] [address]- 9224 Jul, Schizoaffective disorder, depressive type F25.1 [facility] [address] [place] [address]- 0409 19 Jul, 2017 [facility] [address] 06220- 0680 13 Jul, 2017 Hypothyroidism (acquired) E03.9 [facility] [address] 15287- 0379 11 Jul, 2017 Chronic obstructive pulmonary disease, unspecified COPD type J44.9 and Type 2 diabetes mellitus without complication, without long-term current use of insulin E11.9 [facility] [address] 48901- 8419 10 Jul, 2017 Paranoid schizophrenia F20.0 [place] [address] 71303- 2919 Jun, Hypothyroidism (acquired) E03.9 and Seasonal allergic rhinitis due to pollen J30.1 [facility] [address] 12718 -8538 Jun, Shortness of breath at rest R06.02 ; COPD exacerbation J44.1 and BMI 45.0-49.9, adult Z68.42 [place] [address] 64997- 1523 Jun, [facility] [address] 38831- 9170 Jun, Paranoid schizophrenia F20.0 ; Depression with anxiety F41.8 and BMI 45.0-49.9, adult Z68.42 [facility] [address] [id number] [place] [address] 02116- 5143 Jun, Schizoaffective disorder, depressive type F25.1 [facility] [address] [id number] 13 Jun, 2017 Dental caries K02.9 [facility] [address] 05723- 9637 12 Jun, 2017 Paranoid schizophrenia F20.0 [facility] [address] [place] [address] 34727- 7217 May, Migraine without aura and without status migrainosus, not intractable G43.009 ; DM neuro manif type II E11.49 and Type 2 diabetes mellitus without complication, without long-term current use of insulin E11.9 [facility] [id number] [place] [address] 12842- 8876 May, Migraine without aura and without status migrainosus, not intractable G43.009 [facility] [address] [id number] [place] [address] 81172- 8566 May, Depression with anxiety F41.8 [facility] [address] [id number] May, [place] [address] 66629- 1020 May, [place] [address] 09167- 3510 May, [place] [address] [place] [id number] [place] [address] 86384- 9078 May, Hypothyroidism (acquired) E03.9 [place] [address] [place] [id number] [place] [address] 52872- 8559 May, Paranoid schizophrenia F20.0 [place] [address] [place] [id number] [place] [address] 28600- 3789 May, Type 2 diabetes mellitus without complication, [...] N32.81 and Controlled substance agreement signed Z79.899 [facility] [id number] [place] [address] 17722- 2719 02 May, 2017 Controlled substance agreement signed Z79.899 [facility] [id number] [place] [address] 76798- 6749 Apr, [facility] [address] [id number] Apr, Dental examination Z01.20 [facility] [address] 03045- 3823 Apr, Paranoid schizophrenia F20.0 [facility] [id number] [place] [address] 57861- 2634 Apr, Hypertension, unspecified type I10 [facility] [id number] [place] [address] 16393- 0035 Apr, Paranoid schizophrenia F20.0 [facility] [id number] [place] [address] 89998- 7125 Apr, [facility] [id number] [place] [address] 89779- 4960 Apr, Tobacco abuse Z72.0 [facility] [id number] [place] [address] 20095- 4997 Apr, [facility] [id number] [place] [address] 85455- 0139 Mar, [facility] [id number] [place] [address] 17345- 5535 Mar, Paranoid schizophrenia F20.0 and BMI 45.0-49.9, adult Z68.42 [facility] [id number] [place] [address] 68804- 2758 Mar, Schizoaffective disorder, depressive type F25.1 [facility] [address] 52883- 3513 14 Mar, 2017 [place] [address] 59665- 0766 Mar, Hypothyroidism, unspecified type E03.9 [place] [address] 47695- 2566 Mar, Schizoaffective disorder, depressive type F25.1 [facility] [address] 84797 -6273 Feb, Gastroenteritis K52.9 and BMI 45.0-49.9, adult Z68.42 [place] [address] 26460- 0963 Feb, [place] [address] 57273- 5382 Feb, [place] [address] 21014- 7443 Feb, [place] [address] 82052- 7481 Feb, [place] [address] 39560- 6737 Feb, Paranoid schizophrenia F20.0 [place] [address] 91344- 1411 Feb, Gastroesophageal reflux disease without esophagitis K21.9 ; Other seasonal allergic rhinitis J30.2 ; Other allergic rhinitis J30.89 ; Tobacco abuse Z72.0 and BMI 40.0-44.9, adult Z68.41 [place] [address] 29670- 6414 Feb, Onychomycosis B35.1 ; Callus of foot L84 and DM neuro manif type II E11.49 [place] [address] 29036- 7051 Jan, Chronic allergic rhinitis J30.9 [place] [address] [id number] [place] [address] 63102- 6306 16 Jan, 2017 [facility] [address] 36710- 9655 Jan, Schizoaffective disorder, depressive type F25.1 [facility] [address] 02018- 8350 10 Jan, 2017 [facility] [address] 81824 -8781 07 Jan, 2017 Sore throat J02.9 and Seasonal allergic rhinitis due to other allergic trigger J30.89 [place] [address] 25146- 5629 Jan, [place] [address] 39767- 1450 Jan, [facility] [address] 57039 -8088 Jan, Chronic allergic rhinitis J30.9 [facility] [id number] [place] [address] 76348- 7376 27 Dec, 2016 Paranoid schizophrenia F20.0 ; Primary insomnia F51.01 and Schizoaffective disorder, depressive type F25.1 [place] [address] [id number] [place] [address] 30662- 5416 21 Dec, 2016 Chronic pain syndrome G89.4 ; Cervicalgia of occipito- atlanto-axial region M54.2 ; Menopausal syndrome (hot flashes) N95.1 and Encounter for immunization Z23 [facility] [id number] [place] [address] 60636- 7822 14 Dec, 2016 [place] [address] 68611- 0797 13 Dec, 2016 [facility] [id number] [place] [address] [id number] 08 Dec, 2016 Paranoid schizophrenia F20.0 [place] [id number] [place] [address] [phone] Dec, Schizoaffective disorder, depressive type F25.1 [place] [id number] [place] [address] 385[address]- 8158 Nov, Hypothyroidism, unspecified type E03.9 [facility] [id number] [place] [phone] Nov, Acute seasonal allergic rhinitis due to other allergen J30.89 [place] [id number] [place] [address] [phone] Nov, [place] [address] [address]- [address] Nov, Hypothyroidism, unspecified type E03.9 and Other elevated white blood cell (WBC) count D72.828 [place] [id number] [place] [address] 17483- 9269 Nov, Schizoaffective disorder, depressive type F25.1 [place] [id number] [place] [address] 89219- 5902 Nov, Paranoid schizophrenia F20.0 [place] [id number] [place] [address] 46257- 3600 Nov, Type 2 diabetes mellitus without complication, without long- term current use of insulin E11.9 ; Morbid obesity due to excess calories E66.01 and Chronic pain syndrome G89.4 [place] [id number] [place] [address] 24484- 9350 Oct, Paranoid schizophrenia F20.0 [place] [id number] [place] [address] 00652- 0393 Oct, [place] [id number] [place] [address] 31604- 0668 Oct, Schizoaffective disorder, depressive type F25.1 [place] [id number] [place] [address] 18241- 8522 Oct, Hypothyroidism, unspecified type E03.9 and Other elevated white blood cell (WBC) count D72.828 [facility] [id number] [place] [address] 96355- 0884 Oct, Morbid obesity due to excess calories E66.01 ; Chronic obstructive pulmonary disease, unspecified COPD type J44.9 ; History of lupus Z87.39 ; Hypothyroidism, unspecified type E03.9 ; Gastroesophageal reflux disease without esophagitis K21.9 ; Primary insomnia F51.01 and Chronic pain syndrome G89.4 [facility] [id number] [address] 8338 Sep, [place] [id number] [place] [address] 22231- 7379 Sep, [place] [id number] [place] [address] 02490- 4289 Sep, [facility] [id number] [place] [address] 26291- 6882 Sep, Paranoid schizophrenia F20.0 [facility] [id number] [place] [address] 53503- 8677 Sep, [facility] [id number] [place] [address] 82673- 4611 Sep, Paranoid schizophrenia F20.0 [facility] [id number] [place] [address] 85259- 1267 Sep, [facility] [id number] [place] [address] 35224- 1651 August, Paranoid schizophrenia F20.0 [facility] [id number] [place] [address] 32413- 5888 Jul, [facility] [id number] [place] [address] 37609- 5200 Jul, Type 2 diabetes mellitus without complication, without long- term current use of insulin E11.9 ; Morbid obesity due to excess calories E66.01 ; Depression with anxiety F41.8 ; Hypothyroidism, unspecified type E03.9 ; Seasonal allergic rhinitis due to other allergic trigger J30.89 ; Pain, dental K08.89 and Gastroesophageal reflux disease without esophagitis K21.9 [facility] [id number] [id number] 12 Jul, 2016 Dental examination Z01.20 [place] [id number] [place] [address] 86705- 2157 07 Jul, 2016 Paranoid schizophrenia F20.0 [place] [id number] [place] [address] 41028- 5747 13 Jun, 2016 Paranoid schizophrenia F20.0 and Depression with anxiety F41.8 [place] [id number] [place] [address] 64239- 4295 Jun, Paranoid schizophrenia F20.0 and Depression with anxiety F41.8 [place] [id number] [place] [address] 88595- 1405 Jun, [place] [id number] [place] [address] 44089- 5562 Jun, [facility] [place] [id number] [place] [address] 58001 -7936 Jun, Seasonal allergic rhinitis due to other allergic trigger J30.89 [facility] [id number] [place] [address] 16879 -1068 May, Sore throat J02.9 ; Other viral agents as the cause of diseases classified elsewhere B97.89 and Acute upper respiratory infection, unspecified J06.9 [place] [id number] [place] [address] 50607- 3365 May, Paranoid schizophrenia F20.0 and Depression with anxiety F41.8 [place] [id number] [place] [address] 81411- 0928 Apr, Other seasonal allergic rhinitis J30.2 [place] [id number] [place] [address] 26951- 5937 Apr, Paranoid schizophrenia F20.0 and Depression with anxiety F41.8 [facility] [id number] [place] [address] 60238 -7991 Apr, Bronchitis J40 and Sore throat J02.9 [place] [id number] [place] [address] 65317- 8367 Apr, Type 2 diabetes mellitus without complication, without long- term current use of insulin E11.9 [facility] [id number] [place] [address] 33057 -7105 Apr, Bronchitis J40 [place] [address] 22560- 0072 Apr, [place] [id number] [place] [address] 88484- 4114 Apr, [place] [id number] [place] [address] 04419- 3324 Mar, Type 2 diabetes mellitus without complication, [...] R60.9 and Other seasonal allergic rhinitis J30.2 [place] [id number] [place] [address] 73912- 3528 Mar, Paranoid schizophrenia F20.0 and Depression with anxiety F41.8 [place] [id number] [place] [address] 36095- 6140 Feb, [place] [id number] [place] [address] 34470- 6192 Feb, [address] [place] [address]- 9863 Feb, [facility] [id number] [place] [address] 07476- 1465 Feb, [facility] [id number] [place] [address] 33353- 1728 Feb, Type 2 diabetes mellitus without complication, without long- term current use of insulin E11.9 ; ARIAS on CPAP G47.33 and Preoperative evaluation to rule out surgical contraindication Z01.818 [facility] [id number] [place] [address] 01030- 3706 09 Feb, 2016 Paranoid schizophrenia F20.0 and Depression with anxiety F41.8 [facility] [id number] [place] [address] 39005- 0314 Jan, [facility] [id number] [place] [address] 94785- 5137 Jan, Paranoid schizophrenia F20.0 and Depression with anxiety F41.8 [facility] [id number] [place] [address] 16794- 5915 Jan, [facility] [id number] [place] [address] 40176- 6590 Jan, Muscle strain T14.8 [facility] [id number] [place] [address] 53299- 6058 Jan, Paranoid schizophrenia F20.0 [facility] [id number] [place] [address] 26613- 7588 Jan, [facility] [id number] [place] [address] 13328- 9984 Jan, Paranoid schizophrenia F20.0 and Depression with anxiety F41.8 [facility] [address], [place] [address]- 0690 Jan, [facility] [id number] [place] [address] 71328- 4337 Jan, [facility] [address], [place] [address]- 1415 28 Dec, 2015 [facility] [id number] [place] [address] 99990- 6972 23 Dec, 2015 Paranoid schizophrenia F20.0 [facility] [id number] [place] [address] 22429- 5268 16 Dec, 2015 Paranoid schizophrenia F20.0 and Depression with anxiety F41.8 [facility] [id number] [place] [address] 09502- 8261 Nov, [place] [id number] [place] [address] 95999- 2153 Nov, Paranoid schizophrenia F20.0 [place] [id number] [place] [address] 64737- 9345 Nov, Paranoid schizophrenia F20.0 and Depression with anxiety F41.8 [place] [id number] [place] [address] 83673- 6413 Nov, Type 2 diabetes mellitus without complication, without long- term current use of insulin E11.9 ; Paranoid schizophrenia F20.0 ; Chronic obstructive pulmonary disease, unspecified COPD type J44.9 ; Morbid obesity due to excess calories E66.01 and Parkinsonian tremor G20 [facility] [address], [place] [address]- 7836 Nov, [facility] [address], [place] [address]- 4285 Oct, Paranoid schizophrenia F20.0 [facility] [address], [place] [address]- 7373 Oct, Paranoid schizophrenia F20.0 [facility] [address], [place] [address]- 5115 Oct, Paranoid schizophrenia F20.0 and Depression with anxiety F41.8 [facility] [id number] [place] [address] 92087- 3914 Oct, [place] [id number] [place] [address] 48573- 3899 Oct, Paranoid schizophrenia F20.0 and Depression with anxiety F41.8 [place] [id number] [place] [address] 60943- 5474 Oct, Nasal sore J34.89 [place] [id number] [place] [address] 78042- 0818 Oct, Type 2 diabetes mellitus without complication, without long- term current use of insulin E11.9 ; Depression with anxiety F41.8 ; Hypothyroidism, unspecified type E03.9 and History of lupus Z87.39 [place] [id number] [place] [address] 64250- 3690 Oct, [place] [id number] [place] [address] 16926- 6195 Oct, Type 2 diabetes mellitus without complication, [...] edema R60.9 and History of lupus Z87.39 [place] [address], [place] [address]- 0571 Feb, [place] [id number] [place] [address] 75823- 3400 Jan, [place] [id number] [place] [address] 11813- 9167 Jan, [place] [id number] [place] [address] 28136- 7451 Jan, [facility] [address] [facility] [id number] [place] [address]- 5373 Dec, [facility] [id number] [place] [address]- 5705 Nov, [facility] [address] [facility] [id number] [place] [address]- 9016 Nov, [facility] [id number] [place] [address], [place] [address]- 7846 Oct, [facility] [address] [id number] [place] [address]- 6928 Oct, [facility] [id number] [place] [address]- 4147 Oct, [facility] [id number] [place] [address]- 5608 Sep, Allergic rhinitis 477.9 [facility] [id number], [place] [address]- 7160 Sep, Rhinitis, allergic 477.9 [facility] [id number], [place] [address]- 0165 Sep, Rhinitis, allergic 477.9 [facility] [id number], [place] [address]- 2633 Sep, [facility] [id number], [place] [address]- 2179 August, [facility] [id number], [place] [address]- 5955 August, [facility] [id number] [place] [address]- 4313 August, [facility] [id number] [id number] 6953 Jul, [facility] [id number] 1781 Jul, [facility] [place] [facility] [address] [id number] [place] [address]- 4999 13 Jul, 2014 [facility] [place] [facility] [address] [id number] [place] [address]- 5536 16 Jun, 2014 [facility] [place] [facility] [address] [id number] [place] [address]- 0339 16 Jun, 2014 [facility] [place] [facility] [address] [id number] [place] [address]- 0191 Jun, [facility] [place] [facility] [address] [id number] [place] [address]- 3385 Jun, [facility] [place] [facility] [address] [id number] [place] [address]- 5024 Jun, [facility] [place] [facility] [address] [id number] [place] [address]- 0743 Jun, [facility] [place] [facility] [address] [id number] [place] [address]- 8482 Jun, [facility] [place] [facility] [address] [id number] [place] [address]- 0639 Jun, [facility] [place] [facility] [address] [id number] [place] [address]- 0528 May, [facility] [place] [facility] [address] [id number] [place] [address]- 3408 May, [facility] [place] [facility] [address] [id number] [place] [address]- 0916 May, [facility] [place] [facility] [address] [id number] [place] [address]- 2209 May, [facility] [place] [facility] [address] [id number] [place] [address]- 2466 Apr, [facility] [place] [facility] [address] [id number] [place] [address]- 3718 Mar, [facility] [place] [facility] [address] [id number] [place] [address]- 4049 Mar, [facility] [place] [facility] [address] [id number] [place] [address]- 4618 Mar, [facility] [place] [facility] [address] [id number] [place] [address]- 0629 Mar, [facility] [place] [facility] [address] [id number] [place] [address]- 1709 Mar, [facility] [place] [facility] [address] [id number] [place] [address]- 0569 Mar, [facility] [place] [facility] [address] [id number] [place] [address]- 3112 Mar, [facility] [place] [facility] [address] [id number] [place] [address]- 6264 Mar, [facility] [place] [facility] [address] [id number] [place] [address]- 0406 Mar, [facility] [place] [facility] [address] [id number] [place] [address]- 4379 Feb, [facility] [place] [facility] [address] [id number] [place] [address]- 2416 Feb, [facility] [place] [facility] [address] [id number] [place] [address]- 8481 Feb, [facility] [place] [facility] [address] [id number] [place] [address]- 3800 17 Feb, 2014 [facility] [place] [facility] [address] [id number], [place] [address]- 4605 Feb, [facility] [place] [facility] [address] [id number] [place] [address]- 2530 14 Feb, 2014 [facility] [place] [facility] [address] [id number] [place] [address]- 1906 Feb, [facility] [place] [facility] [address] [id number] [place] [address]- 6541 Feb, [facility] [place] [facility] [address] [id number] [place] [address]- 6185 23 Jan, 2014 [facility] [place] [facility] [address] [id number] [place] [address]- 4921 23 Jan, 2014 [facility] [place] [facility] [address] [id number] [place] [address]- 0014 16 Jan, 2014 [facility] [place] [facility] [address] [id number] [place] [address]- 3244 16 Jan, 2014 [facility] [place] [facility] [address] [id number] [place] [address]- 9886 15 Jan, 2014 [facility] [place] [facility] [address] [id number] [place] [address]- 8607 15 Jan, 2014 [facility] [place] [facility] [address] [id number] [place] [address]- 7924 14 Jan, 2014 [facility] [place] [facility] [address] [id number] [place] [address]- 5767 14 Jan, 2014 [facility] [place] [facility] [address] [id number] [place] [address]- 4449 14 Jan, 2014 [facility] [place] [facility] [address] [id number] [place] [address]- 3766 14 Jan, 2014 [facility] [place] [facility] [address] [id number] [place] [address]- 4576 18 Dec, 2013 [facility] [place] [facility] [address] [id number] [place] [address]- 0951 18 Dec, 2013 [facility] [place] [facility] [address] [id number] [place] [address]- 7836 10 Dec, 2013 [facility] [place] [facility] [address] [id number] [place] [address]- 2546 10 Dec, 2013 [facility] [place] [facility] [address] [id number] [place] [address]- 3397 22 Nov, 2013 [facility] [place] [facility] [address] [id number] [place] [address]- 1488 Nov, [facility] [place] [facility] [address] [id number] [place] [address]- 4242 Nov, [facility] [place] [facility] [address] [id number] [place] [address]- 3470 Nov, [facility] [place] [facility] [address] [id number] [place] [address]- 7858 Nov, [facility] [place] [facility] [address] [id number] [place] [address]- 2629 Oct, [facility] [place] [facility] [address] [id number] [place] [address]- 2401 Oct, [facility] [place] [facility] [address] [id number] [place] [address]- 2100 Oct, [facility] [place] [facility] [address] [id number] [place] [address]- 4523 Oct, [facility] [place] [facility] [address] [id number] [place] [address]- 3738 Sep, [facility] [place] [facility] [address] [id number] [place] [address]- 6822 Sep, [facility] [place] [facility] [address] [id number] [place] [address]- 2077 Sep, [facility] [place] [facility] [address] [id number], [place] [address]- 6822 Sep, [facility] [place] [facility] [address] [id number], [place] [address]- 6886 Sep, [facility] [place] [facility] [address] [id number] [place] [address]- 1747 Sep, [facility] [place] [facility] [address] [id number] [place] [address]- 7848 Sep, [facility] [place] [facility] [address] [id number] [place] [address]- 0766 Sep, [facility] [place] [facility] [address] [id number] [place] [address]- 5641 August, [facility] [address] [id number] [place] [address]- 2262 August, [facility] [place] [facility] [address] [id number] [place] [address]- 8723 August, [facility] [address] [id number] [place] [address]- 4303 August, [facility] [place] [facility] [address] [id number] [place] [address]- 2397 August, [facility] [place] [facility] [address] [id number] [place] [address]- 0399 August, [facility] [place] [facility] [address] [id number] [place] [address]- 8727 August, [facility] [address] [id number] [place] [address]- 5602 Jul, [facility] [place] [facility] [address] [id number] [place] [address]- 5304 Jul, [facility] [place] [facility] [address] [id number] [place] [address]- 1927 Jul, [facility] [address] [id number] [place] [address]- 4763 Jul, [facility] [place] [facility] [address] [id number] [place] [address]- 2324 Jul, [facility] [place] [facility] [address] [id number] [place] [address]- 5557 Jul, [facility] [place] [facility] [address] [id number] [place] [address]- 4859 Jul, [facility] [place] [facility] [address] [id number] [place] [address]- 8049 Jul, [facility] [place] [facility] [address] [id number] [place] [address]- 5014 Jul, [facility] [place] [facility] [address] [id number] [place] [address]- 3803 Jul, [facility] [place] [facility] [address] [id number] [place] [address]- 6536 Jul, [facility] [place] [facility] [address] [id number] [place] 4485 Jul, [facility] [place] [facility] [address] [id number] [place] [address]- 2568 Jun, [facility] [place] [facility] [address] [id number] [place] [address]- 3103 Jun, [facility] [place] [facility] [address] [id number] [place] [address]- 9100 Jun, [facility] [place] [facility] [address] [id number] [place] [address]- 0213 Jun, [facility] [place] [facility] [address] [id number] [place] [address]- 8480 Jun, [facility] [place] [facility] [address] [id number] [place] [address]- 0616 May, [facility] [place] [facility] [address] [id number] [place] [address]- 3360 May, [facility] [place] [facility] [address] [id number] [place] [address] May, [facility] [place] [facility] [address] [id number] [place] [address] May, [facility] [place] [facility] [address] [id number] [place] [address] May, [facility] [place] [facility] [address] [id number] [place] [address] May, [facility] [place] [facility] [address] [facility] [id number] [place] [address] May, [facility] [place] [facility] [address] [id number] [place] [address] May, [facility] [address] [id number] [place] [address] Mar, [facility] [place] [facility] [address] [id number] [id number] [address] Mar, [facility] [address] [id number] [place] [address] Mar, [facility] [place] [facility] [address] [id number] [place] [address] Mar, [facility] [address] [id number] [place] [address] Mar, [facility] [place] [facility] [address] [id number] [place] [address] Mar, [facility] [address] [id number] [place] [address] Feb, [facility] [place] [facility] [address] [id number] [place] [address] Feb, [facility] [place] [facility] [address] [id number] [place] [address] Jan, [facility] [place] [facility] [address] [id number] [place] [address] Jan, [facility] [place] [facility] [address] [id number] [place] [address] Jan, [facility] [place] [facility] [address] [id number], [place] [address] Jan, [facility] [place] [facility] [address] [id number] [place] [address] Jan, [facility] [place] [facility] [address] [id number] [place] [address] Jan, [facility] [place] [facility] [address] [id number], [place] [address] Jan, [facility] [place] [facility] [address] [id number] [place] [address] Jan, [facility] [address] [id number] [place] [address] Jan, [facility] [place] [facility] [address] [id number] [place] [address] Jan, [facility] [place] [facility] [address] [id number] [place] [address] Dec, [facility] [address] [id number] [place] [address] Nov, [facility] [place] [facility] [address] [id number] [place] [address] Nov, [facility] [address] [id number] [place] [address] Nov, [facility] [address] [id number] [place] [address] Oct, [facility] [address] [id number] [place] [address] Oct, [facility] [address] [id number] [place] [address] August, [facility] [address] [id number] [place] [address] Apr, [facility] [address] [id number] [place] [address] Apr, [facility] [place] [facility] [address] [id number] [place] [address] Feb, [facility] [place] [facility] [address] [id number] [place] [address] Feb, [facility] [place] [facility] [address] [id number] [place] [address] Dec, [facility] [place] [facility] [address] [id number] [place] [address] Dec, [facility] [address] [facility] [id number] [place] [address] Oct, [facility] [address] [facility] [id number], [place] [address] Oct, [facility] [address] [facility] [id number], [place] [address] Oct, [facility] [address] [facility] [id number], [place] [address] Jul, IMMUNIZATIONS No Known Immunizations SOCIAL HISTORY Never Assessed REASON FOR VISIT EMR-[facility] PLAN OF CARE VITAL SIGNS MEDICATIONS Unknown [...] for psychosis/mental illness , last one in [place] at [facility] 4 years ago
--- OUTSIDE RECORDS SUMMARY | 2018-09-02 13:07 | XMS REPORT ---
Author Author Migration, Doctor Organization [facility] Address Unknown Phone Unavailable Care Team Providers Care Housing Manager Name Role Phone Migration, Doctor Unavailable Unavailable PROBLEMS Type Condition ICD9-CM Code AXS74-FM Code Onset Dates Condition Status SNOMED Code Problem History of lupus Z87.39 Active 339112385 Problem OAB (overactive bladder) N32.81 Active 004688543 Problem Chronic pain syndrome G89.4 Active 279388600 Problem Type 2 diabetes mellitus without complication, without long-term current use of insulin E11.9 Active 669707895 Problem Depression with anxiety F41.8 Active 272302933 Problem Paranoid schizophrenia F20.0 Active 99039067 Problem Essential hypertension I10 Active 46727556 Problem Dyslipidemia E78.5 Active 850699947 Problem Schizoaffective disorder, depressive type F25.1 Active 94414537 Problem Seasonal allergic rhinitis due to other allergic trigger J30.89 Active 942862302 Problem DM neuro manif type II E11.49 Active 32848850 Problem Primary insomnia F51.01 Active 6735516 Problem Other allergic rhinitis J30.89 Active 316423691 Problem Menopausal syndrome (hot flashes) N95.1 Active 355451332 Problem Tobacco abuse Z72.0 Active 128166173 Problem Other seasonal allergic rhinitis J30.2 Active 019503848 Problem Hypothyroidism (acquired) E03.9 Active 047037590 Problem Gastroesophageal reflux disease, esophagitis presence not specified K21.9 Active 952355987 Problem Migraine without aura and without status migrainosus, not intractable G43.009 Active 879797474 Problem Cigarette nicotine dependence without complication F17.210 Active 02875073 Problem Morbid obesity due to excess calories E66.01 Active 188559706 Problem Allergic rhinitis, unspecified seasonality, unspecified trigger J30.9 Active 76204600 Problem Chronic obstructive pulmonary disease, unspecified COPD type J44.9 Active 51763485 Problem Gastroesophageal reflux disease without esophagitis K21.9 Active 722101459 Problem COPD exacerbation J44.1 Active 811175580 Problem Seasonal allergic rhinitis due to pollen J30.1 Active 10441268 Problem Diabetic polyneuropathy associated with type 2 diabetes mellitus E11.42 Active 750874493 Problem Type 2 diabetes mellitus with diabetic neuropathic arthropathy, 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01 ; Diabetic polyneuropathy associated with type 2 diabetes mellitus E11.42 ; Chronic obstructive pulmonary disease, unspecified COPD type J44.9 ; Schizoaffective disorder, depressive type F25.1 and Hypothyroidism (acquired) E03.9 [place] [id number] [place] [address] 54727- 9212 Jun, Gastroesophageal reflux disease without esophagitis K21.9 [place] [id number] [place] [address] 04534- 4190 Jun, Paranoid schizophrenia F20.0 [place] [id number] [place] [address] 60188- 4155 Jun, Schizoaffective disorder, depressive type F25.1 [place] [id number] [place] [address] 51471- 9457 Jun, [place] [id number] [place] [address] 85529- 6286 Jun, Schizoaffective disorder, depressive type F25.1 [place] [id number] [place] [address] 26792- 5466 Jun, Cigarette nicotine dependence without complication F17.210 [facility] [place] [id number] [place] [address] 89009- 1829 Jun, Type 2 diabetes mellitus without complication, without long- term current use of insulin E11.9 [facility] [place] [id number] [place] [address] 92998- 5491 15 Jun, 2018 [facility] [place] [id number] [place] [address] 54575- 2989 Jun, [facility] [place] [id number] [place] [address] 25771- 6657 Jun, [facility] [place] [id number] [place] [address] 71149- 3631 Jun, [facility] [place] [id number] [place] [address] 94315- 7945 Jun, [facility] [place] [id number] [place] [address] 14682- 9616 Jun, Paranoid schizophrenia F20.0 ; Type 2 diabetes mellitus without complication, without long-term current use of insulin E11.9 ; Hypothyroidism (acquired) E03.9 and Morbid obesity E66.01 [place] [id number] [place] [address] 57049- 9875 May, Paranoid schizophrenia F20.0 [facility] [place] [address] [place] [address] 26651- 8836 May, Hypothyroidism (acquired) E03.9 and Dyslipidemia E78.5 [place] [id number] [place] [address] 57452- 3441 May, Cigarette nicotine dependence without complication F17.210 [facility] [place] [address] [place] [address] 92179- 5498 18 May, 2018 [facility] [place] [id number] [place] [address] 37244- 3608 14 May, 2018 Type 2 diabetes mellitus without complication, without long- term current use of insulin E11.9 ; Essential hypertension I10 ; Hypothyroidism (acquired) E03.9 and Dyslipidemia E78.5 [facility] [place] [address] [place] [address] 08808- 6897 13 May, 2018 [facility] [place] [id number] [place] [address] 53457- 1577 May, Schizoaffective disorder, depressive type F25.1 [place] [address] 68809- 1961 May, Paranoid schizophrenia F20.0 [place] [id number] [place] [address] 80140- 8548 07 May, 2018 [facility] [address] [place] [address] May, [place] [id number] [place] [address] 48434- 9628 May, [facility] [place] [id number] [place] [address] 69152- 4234 May, Type 2 diabetes mellitus without complication, without long- term current use of insulin E11.9 ; Essential hypertension I10 ; Hypothyroidism (acquired) E03.9 and Dyslipidemia E78.5 [facility] [place] [id number] [place] [address] 05670- 5946 May, [facility] [place] [id number] [place] [address] 70874- 3027 May, Acute nasopharyngitis J00 [facility] IN [facility] [address] 93020 -3170 04 May, 2018 Allergic rhinitis, unspecified seasonality, unspecified trigger J30.9 [facility] [place] [id number] [place] [address] 23986- 4423 May, [facility] [place] [address] [place] [address]- 6343 Apr, Schizoaffective disorder, depressive type F25.1 [facility] [place] [id number] [place] [address] 13564- 2398 Apr, [facility] [place] [id number] [place] [address] 37794- 3573 Apr, Cigarette nicotine dependence without complication F17.210 [facility] [place] [id number] [place] [address] 05211- 3373 Apr, [facility] [place] [id number] [place] [address] 52839- 2330 Apr, Cigarette nicotine dependence without complication F17.210 [facility] [place] [id number] [place] [address] 94895- 2322 Apr, [facility] [place] [id number] [place] [address] 40925- 7975 Apr, Migraine without aura and without status migrainosus, not intractable G43.009 [facility] [place] [id number] [place] [address] 41184- 4703 Apr, Migraine without aura and without status migrainosus, not intractable G43.009 [facility] [place] [address] [place] [address] 76930- 8962 Mar, Schizoaffective disorder, depressive type F25.1 ; BMI 45.0- 49.9, adult Z68.42 and BMI 40.0-44.9, adult Z68.41 [facility] [place] [address] [place] [address] 72049- 5760 Mar, Primary insomnia F51.01 [facility] [place] [id number] [place] [address] 28413- 1919 Mar, [facility] [place] [id number] [place] [address] 46190- 1895 Feb, Primary insomnia F51.01 [facility] [place] [id number] [place] [address] 15051- 2590 Feb, [place] [id number] [place] [address] 64937- 6771 Jan, Schizoaffective disorder, depressive type F25.1 and BMI 45.0 -49.9, adult Z68.42 [place] [id number] [place] [address] 04872- 0102 Jan, [place] [address] 06339- 8626 Jan, Type 2 diabetes mellitus with diabetic neuropathic arthropathy, 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 ; Menopausal syndrome (hot flashes) N95.1 and BMI 40.0-44.9, adult Z68.41 [place] [id number] [place] [address] 54919- 4856 Jan, Paranoid schizophrenia F20.0 [place] [address] 49416- 0417 Jan, [place] [address] 56127- 0099 Jan, Schizoaffective disorder, depressive type F25.1 [place] [id number] [place] [address] 04490- 5063 Jan, [place] [id number] [place] [address] 94503- 3521 Jan, Chronic obstructive pulmonary disease, unspecified COPD type J44.9 ; BMI 45.0-49.9, adult Z68.42 ; Type 2 diabetes mellitus without complication, without long-term current use of insulin E11.9 ; Hypothyroidism ( acquired) E03.9 ; Encounter for immunization Z23 ; Gastroesophageal reflux disease without esophagitis K21.9 ; Primary insomnia F51.01 and Acute nasopharyngitis J00 [place] [id number] [place] [address] 42540- 3366 Dec, [place] [id number] [place] [address] 88717- 8162 21 Dec, 2017 Schizoaffective disorder, depressive type F25.1 and BMI 45.0 -49.9, adult Z68.42 [facility] [place] [id number] [place] [address] 69676- 1877 Dec, [facility] [place] [id number] [place] [address] 61627- 0456 Dec, [facility] [place] [id number] [place] [address] 13388- 7024 Dec, Acute non-recurrent frontal sinusitis J01.10 [facility] [place] [id number] [place] [address] 61798- 8483 18 Dec, 2017 Acute non-recurrent frontal sinusitis J01.10 ; Weakness of left leg R29.898 ; At high risk for falls Z91.81 and BMI 45.0-49.9, adult Z68.42 [facility] [place] [id number] [place] [address] 30200- 1593 17 Dec, 2017 [facility] [place] [id number] [place] [address] 10765- 8805 Dec, [facility] [place] [id number] [place] [address] 33155- 3817 Dec, Schizoaffective disorder, depressive type F25.1 [facility] IN [facility] [address] [place] [address] 52009 -1219 Dec, Acute nasopharyngitis J00 [facility] [place] [address] [address]- 7320 Dec, Schizoaffective disorder, depressive type F25.1 [facility] [place] [id number] [place] [address] 29309- 2192 Dec, [facility] [place] [id number] [place] [address] 93584- 9744 Nov, Schizoaffective disorder, depressive type F25.1 and BMI 45.0 -49.9, adult Z68.42 [place] [address] [address]- 1321 Nov, [place] [address] [place] [address] 44200- 5388 Nov, [place] [address] [place] [address] 35781- 2018 Nov, Schizoaffective disorder, depressive type F25.1 [place] [address] [place] [address] 18517- 5761 Nov, Well woman exam Z01.419 ; BMI 45.0-49.9, adult Z68.42 ; Screening breast examination Z12.31 and Dietary counseling and surveillance Z71.3 [place] [id number] [place] [address] 26575- 4132 Nov, Paranoid schizophrenia F20.0 [place] [address] [place] [address] 09380- 3319 Nov, Gastroesophageal reflux disease, esophagitis presence not specified K21.9 [place] [address] [address]- 7598 Oct, Paranoid schizophrenia F20.[id number] [address] Oct Chronic pain syndrome G89.4 and Schizoaffective disorder, depressive type F25.1 [place] [address] [address]- 8548 Oct, Chronic pain syndrome G89.4 and Schizoaffective disorder, depressive type F25.1 [place] [address] [place] [address] 39616- 2655 Oct, Type 2 diabetes mellitus without complication, without long- term current use of insulin E11.9 [place] [id number] [place] [address] 30383- 9883 Oct, Essential hypertension I10 and DM neuro manif type II E11.49 [place] [id number] [place] [address] 46062- 8604 Oct, [facility] [place] [id number] [place] [address] 01493- 2926 Oct, Schizoaffective disorder, depressive type F25.1 and BMI 45.0 -49.9, adult Z68.42 [place] [id number] [place] [address] 01849- 9455 Oct, [place] [id number] [place] [address] 66025- 4418 Oct, Paranoid schizophrenia F20.0 [place] [id number] [place] [address] 40565- 7918 Oct, Type 2 diabetes mellitus with diabetic neuropathic arthropathy, 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 ; Essential hypertension I10 ; Hypothyroidism (acquired) E03.9 ; Chronic obstructive pulmonary disease, unspecified COPD type J44.9 and Diabetic polyneuropathy associated with type 2 diabetes mellitus E11.42 [place] [id number] [place] [address] 89116- 0018 Sep, Paranoid schizophrenia F20.0 [place] [id number] [place] [address] 50263- 5669 Sep, Paranoid schizophrenia F20.0 and BMI 45.0-49.9, adult Z68.42 [place] [address] [place] [address] 35926- 4386 Sep, Schizoaffective disorder, depressive type F25.1 [place] [id number] [place] [address] 67148- 4130 Sep, [place] [id number] [place] [address] 36346- 8058 Sep, Paranoid schizophrenia F20.0 [place] [id number] [place] [address] 25743- 7175 Sep, [facility] [place] [address] [place] [address] 44678- 4442 Sep, Hypothyroidism (acquired) E03.9 [facility] [place] [id number] [place] [address] 71377- 0045 Sep, [facility] [place] [id number] [place] [address] 03522- 3695 August, Schizoaffective disorder, depressive type F25.1 [facility] [place] [id number] [place] [address] 70458- 7054 August, [facility] [place] [id number] [place] [address] 16848- 9803 August, [facility] [place] [id number] [place] [address] 67247- 8880 August, [facility] [place] [id number] [place] [address] 03102- 7053 August, Paranoid schizophrenia F20.0 [facility] [place] [id number] [place] [address] 50465- 5846 August, History of lupus Z87.39 and Chronic pain syndrome G89.4 [facility] [place] [id number] [place] [address] 23926- 0205 August, [facility] [id number] [place] [address] 21970 -1174 August, Seasonal allergic rhinitis, unspecified trigger J30.2 and BMI 45.0-49.9, adult Z68.42 [facility] [place] [id number] [place] [address] 76300- 2085 Jul, Schizoaffective disorder, depressive type F25.1 [facility] [place] [id number] [place] [address] 75851- 1644 Jul, [facility] [place] [id number] [place] [address] 95782- 5743 13 Jul, 2017 Hypothyroidism (acquired) E03.9 [facility] [place] [id number] [place] [address] 02027- 6405 11 Jul, 2017 Chronic obstructive pulmonary disease, unspecified COPD type J44.9 and Type 2 diabetes mellitus without complication, without long-term current use of insulin E11.9 [facility] [place] [address] 53542- 2404 Jul, Paranoid schizophrenia F20.0 [facility] [place] [address] 49621- 1093 Jun, Hypothyroidism (acquired) E03.9 and Seasonal allergic rhinitis due to pollen J30.1 [facility] WALK IN [facility] [address] 54053 -8494 Jun, Shortness of breath at rest R06.02 ; COPD exacerbation J44.1 and BMI 45.0-49.9, adult Z68.42 [facility] [place] [address] 66806- 5507 Jun, [facility] [place] [address] 44324- 3582 Jun, Paranoid schizophrenia F20.0 ; Depression with anxiety F41.8 and BMI 45.0-49.9, adult Z68.42 [place] [address] 40611- 7009 Jun, Schizoaffective disorder, depressive type F25.1 [facility] [id number] [place] [address] [phone] Jun, 2017 Dental caries K02.9 [place] [address] 42542- 0248 Jun, Paranoid schizophrenia F20.0 [facility] [place] [address] 80818- 3720 May, Migraine without aura and without status migrainosus, not intractable G43.009 ; DM neuro manif type II E11.49 and Type 2 diabetes mellitus without complication, without long-term current use of insulin E11.9 [facility] [place] [id number] [place] [address] 85319- 2607 May, Migraine without aura and without status migrainosus, not intractable G43.009 [facility] [place] [address] 32849- 8380 May, Depression with anxiety F41.8 [facility] [id number] [place] [address] [phone] May, [place] [address] 85859- 0856 May, [facility] [place] [address] 65917- 8236 May, [place] [address] 36751- 5831 May, Hypothyroidism (acquired) E03.9 [facility] [place] [address] [address] May, Paranoid schizophrenia F20.0 [facility] [place] [address] [address] May, Type 2 diabetes mellitus without complication, [...] N32.81 and Controlled substance agreement signed Z79.899 [place] [address] [address] May, Controlled substance agreement signed Z79.899 [facility] [place] [address] [place] [id number] [place] [phone] Apr, [facility] [address] [place] [id number] [place] [address] [phone] Apr, Dental examination Z01.20 [facility] [place] [address] [address] Apr, Paranoid schizophrenia F20.0 [facility] [place] [address] [place] [id number] [place] [phone]- [phone] Apr, Hypertension, unspecified type I10 [facility] [place] [address] [place] [id number] [place] [address]- [address] Apr, Paranoid schizophrenia F20.0 [facility] [place] [address] [address]- [address] Apr, [facility] [place] [address] [place] [id number] [place] [address] [phone]- [phone] Apr, Tobacco abuse Z72.0 [facility] [place] [address] [address]- [address] Apr, [facility] [place] [address] [place] [id number] [place] [id number]- [phone] Mar, [facility] [place] [address] [place] [id number] [place] [phone]- [phone] Mar, Paranoid schizophrenia F20.0 and BMI 45.0-49.9, adult Z68.42 [facility] [place] [address] [address] Mar, Schizoaffective disorder, depressive type F25.1 [facility] [place] [id number] [place] [address] 41275- 5406 Mar, [facility] [place] [address] 15577- 9497 Mar, Schizoaffective disorder, depressive type F25.1 [place] [id number] [place] [address] 48052- 4474 Mar, Hypothyroidism, unspecified type E03.9 [facility] [id number] [place] [address] 66501 -0155 Feb, Gastroenteritis K52.9 and BMI 45.0-49.9, adult Z68.42 [place] [address] 75648- 1720 Feb, [place] [address] 50593- 5516 Feb, [place] [address] 96728- 0622 Feb, [address] 76632- 6862 Feb, [place] [address] 00678- 8464 Feb, Paranoid schizophrenia F20.[address] 71141- 0447 Feb, Gastroesophageal reflux disease without esophagitis K21.9 ; Other seasonal allergic rhinitis J30.2 ; Other allergic rhinitis J30.89 ; Tobacco abuse Z72.0 and BMI 40.0-44.9, adult Z68.[address] 72985- 4179 Feb, Onychomycosis B35.1 ; Callus of foot L84 and DM neuro manif type II E11.[address] 11630- 9071 Jan, Chronic allergic rhinitis J30.9 [place] [address] 41579- 1182 Jan, [place] [address] [place] [address] 3546 Jan, Schizoaffective disorder, depressive type F25.1 [facility] [place] [id number] [place] [address] 78738- 1674 Jan, [facility] [id number] [place] [address] 47969 -0128 07 Jan, 2017 Sore throat J02.9 and Seasonal allergic rhinitis due to other allergic trigger J30.89 [facility] [place] [id number] [place] [address] 35510- 7703 Jan, [facility] [place] [address] 99006- 7265 Jan, [facility] IN [facility] [id number] [place] [address] 00771 -8762 Jan, Chronic allergic rhinitis J30.9 [place] [id number] [place] [address] 67014- 8078 27 Dec, 2016 Paranoid schizophrenia F20.0 ; Primary insomnia F51.01 and Schizoaffective disorder, depressive type F25.1 [place] [id number] [place] [address] 65787- 9448 21 Dec, 2016 Chronic pain syndrome G89.4 ; Cervicalgia of occipito- atlanto-axial region M54.2 ; Menopausal syndrome (hot flashes) N95.1 and Encounter for immunization Z23 [place] [id number] [place] [address] 25176- 7784 14 Dec, 2016 [place] [id number] [place] [address] 07491- 8980 13 Dec, 2016 [place] [id number] [place] [address] 78797- 5317 08 Dec, 2016 Paranoid schizophrenia F20.0 [place] [id number] [place] [address] 63973- 4866 Dec, Schizoaffective disorder, depressive type F25.1 [place] [id number] [place] [address] 54803- 4323 Nov, Hypothyroidism, unspecified type E03.9 [facility] [id number] [place] [address] 17177 -9117 Nov, Acute seasonal allergic rhinitis due to other allergen J30.89 [place] [id number] [place] [address] 30573- 6026 Nov, [place] [id number] [place] [address] 40233- 3173 Nov, Hypothyroidism, unspecified type E03.9 and Other elevated white blood cell (WBC) count D72.828 [place] [id number] [place] [address] 22342- 3584 Nov, Schizoaffective disorder, depressive type F25.1 [place] [id number] [place] [address] 21081- 1724 Nov, Paranoid schizophrenia F20.0 [place] [id number] [place] [address] 97767- 7749 Nov, Type 2 diabetes mellitus without complication, without long- term current use of insulin E11.9 ; Morbid obesity due to excess calories E66.01 and Chronic pain syndrome G89.4 [place] [id number] [place] [address] 24882- 7614 Oct, Paranoid schizophrenia F20.0 [place] [id number] [place] [address] 46825- 0956 Oct, [place] [id number] [place] [address] 71019- 9400 Oct, Schizoaffective disorder, depressive type F25.1 [place] [id number] [place] [address] 52007- 2683 Oct, Hypothyroidism, unspecified type E03.9 and Other elevated white blood cell (WBC) count D72.828 [place] [address] [address]- 2015 Oct, Morbid obesity due to excess calories E66.01 ; Chronic obstructive pulmonary disease, unspecified COPD type J44.9 ; History of lupus Z87.39 ; Hypothyroidism, unspecified type E03.9 ; Gastroesophageal reflux disease without esophagitis K21.9 ; Primary insomnia F51.01 and Chronic pain syndrome G89.4 [facility] [place] [id number] [place] [address] 86854- 3145 Sep, [facility] [place] [id number] [place] [address] 93138- 0931 Sep, [facility] [place] [id number] [place] [address] 48823- 3627 Sep, [facility] [place] [id number] [place] [address] 63831- 4128 Sep, Paranoid schizophrenia F20.0 [facility] [place] [address] [address]- 2480 Sep, [facility] [place] [id number] [place] [address] 26936- 4658 Sep, Paranoid schizophrenia F20.0 [facility] [place] [id number] [place] [address] 61180- 7991 Sep, [facility] [place] [address] [address]- 8612 August, Paranoid schizophrenia F20.0 [facility] [place] [address] [address]- 9376 Jul, [facility] [place] [id number] [place] [address] 84983- 1065 Jul, Type 2 diabetes mellitus without complication, without long- term current use of insulin E11.9 ; Morbid obesity due to excess calories E66.01 ; Depression with anxiety F41.8 ; Hypothyroidism, unspecified type E03.9 ; Seasonal allergic rhinitis due to other allergic trigger J30.89 ; Pain, dental K08.89 and Gastroesophageal reflux disease without esophagitis K21.[address] [facility] [address] [address] 12 Jul, 2016 Dental examination Z01.20 [facility] [place] [id number] [place] [address] 09267- 8144 07 Jul, 2016 Paranoid schizophrenia F20.0 [place] [id number] [place] [address] 81762- 4205 13 Jun, 2016 Paranoid schizophrenia F20.0 and Depression with anxiety F41.8 [place] [id number] [place] [address] 13416- 7124 10 Jun, 2016 Paranoid schizophrenia F20.0 and Depression with anxiety F41.8 [place] [id number] [place] [address] 70160- 6389 09 Jun, 2016 [place] [id number] [place] [address] 19189- 0120 Jun, [facility] IN [facility] [id number] [place] [address] 44398 -1867 Jun, Seasonal allergic rhinitis due to other allergic trigger J30.89 [facility] [place] [id number] [place] [address] 93628 -2599 25 May, 2016 Sore throat J02.9 ; Other viral agents as the cause of diseases classified elsewhere B97.89 and Acute upper respiratory infection, unspecified J06.9 [place] [id number] [place] [address] 88123- 9255 08 May, 2016 Paranoid schizophrenia F20.0 and Depression with anxiety F41.8 [place] [id number] [place] [address] 72310- 3302 Apr, Other seasonal allergic rhinitis J30.2 [place] [id number] [place] [address] 74196- 3940 Apr, Paranoid schizophrenia F20.0 and Depression with anxiety F41.8 [facility] [address] [place] [address] 18418 -2577 Apr, Bronchitis J40 and Sore throat J02.9 [place] [id number] [place] [address] 11105- 4393 Apr, Type 2 diabetes mellitus without complication, without long- term current use of insulin E11.9 [facility] [address] 53949 -6645 Apr, Bronchitis J40 [place] [address] 90591- 5644 Apr, [place] [address] 08816- 1873 Apr, [place] [id number] [place] [address] 96457- 7732 Mar, Type 2 diabetes mellitus without complication, [...] R60.9 and Other seasonal allergic rhinitis J30.2 [place] [id number] [place] [address] 66553- 9529 Mar, Paranoid schizophrenia F20.0 and Depression with anxiety F41.8 [place] [id number] [place] [address] 63071- 0352 Feb, [place] [address] 85848- 3159 Feb, [place] [id number] [place] [address] 07428- 1395 Feb, [place] [address] 90942- 3561 14 Feb, 2016 [facility] [place] [address] [place] [address] 31611- 0658 14 Feb, 2016 Type 2 diabetes mellitus without complication, without long- term current use of insulin E11.9 ; ARIAS on CPAP G47.33 and Preoperative evaluation to rule out surgical contraindication Z01.818 [facility] [place] [id number] [place] [address] 21389- 5971 09 Feb, 2016 Paranoid schizophrenia F20.0 and Depression with anxiety F41.8 [facility] [place] [id number] [place] [address] 44945- 0794 Jan, [facility] [place] [id number] [place] [address] 84703- 5256 Jan, Paranoid schizophrenia F20.0 and Depression with anxiety F41.8 [facility] [place] [id number] [place] [address] 21611- 6598 Jan, [facility] [place] [id number] [place] [address] 48852- 4775 Jan, Muscle strain T14.8 [facility] [place] [id number] [place] [address] 63754- 5376 Jan, Paranoid schizophrenia F20.0 [facility] [place] [id number] [place] [address] 43895- 6536 Jan, [facility] [place] [id number] [place] [address] 96484- 7355 Jan, Paranoid schizophrenia F20.0 and Depression with anxiety F41.8 [facility] [place] [id number] [place] [address] 66756- 2034 Jan, [facility] [place] [id number] [place] [address] 08805- 3674 Jan, [facility] [place] [id number] [place] [address] 59956- 4577 Dec, [facility] [place] [id number] [address]- 2193 23 Dec, 2015 Paranoid schizophrenia F20.0 [facility] [place] [id number] [place] [address] 74112- 6681 16 Dec, 2015 Paranoid schizophrenia F20.0 and Depression with anxiety F41.8 [facility] [place] [address] [address]- 0705 Nov, [facility] [place] [id number] [place] [address] 46290- 8797 Nov, Paranoid schizophrenia F20.0 [place] [id number] [place] [address] 03446- 9107 Nov, Paranoid schizophrenia F20.0 and Depression with anxiety F41.8 [place] [id number] [place] [address] 46971- 4938 Nov, Type 2 diabetes mellitus without complication, without long- term current use of insulin E11.9 ; Paranoid schizophrenia F20.0 ; Chronic obstructive pulmonary disease, unspecified COPD type J44.9 ; Morbid obesity due to excess calories E66.01 and Parkinsonian tremor G20 [facility] [place] [id number] [place] [address] 36943- 7995 Nov, [facility] [place] [address] [address]- 4542 Oct, Paranoid schizophrenia F20.0 [facility] [place] [id number] [place] [address] 35656- 2041 Oct, Paranoid schizophrenia F20.0 [facility] [place] [address] [address]- 7900 Oct, Paranoid schizophrenia F20.0 and Depression with anxiety F41.8 [facility] [place] [address] [address]- 4014 Oct, [facility] [place] [id number] [place] [address] 74212- 0405 Oct, Paranoid schizophrenia F20.0 and Depression with anxiety F41.8 [place] [address] [address]- 1681 Oct, Nasal sore J34.89 [place] [address] [place] [address] 96239- 7136 Oct, Type 2 diabetes mellitus without complication, without long- term current use of insulin E11.9 ; Depression with anxiety F41.8 ; Hypothyroidism, unspecified type E03.9 and History of lupus Z87.39 [place] [id number] [place] [address] 82593- 4977 Oct, [place] [id number] [place] [address] 54430- 7647 Oct, Type 2 diabetes mellitus without complication, [...] edema R60.9 and History of lupus Z87.39 [place] [address] [address]- 8199 Feb, [place] [id number] [place] [address] 64163- 7200 Jan, [place] [id number] [place] [address] 21765- 8405 Jan, [place] [id number] [place] [address] 07587- 7571 Jan, [place] [address] [address]- 6650 Dec, [place] [address] [place] [address]- 8272 Nov, [facility] [address] [place] [address]- 2340 Nov, [facility] [address] [place] [address]- 1011 Oct, [facility] [id number] [place] [address]- 0626 Oct, [facility] [address] [place] [address]- 8719 Oct, [facility] [id number] [place] [address], [place] [address]- 6065 Sep, Allergic rhinitis 477.9 [facility] [place] [address] [place] [address]- 9258 Sep, Rhinitis, allergic 477.9 [facility] [address] [place] [address]- 9293 Sep, Rhinitis, allergic 477.9 [facility] [address] [place] [address]- 2613 Sep, [facility] [address] [place] [address]- 7721 August, [facility] [place] [address] [place] [address]- 9163 August, [facility] [address], [place] [address]- 2719 August, [facility] [id number] [place] [address]- 8331 Jul, [facility] [address] [place] [address]- 5325 14 Jul, 2014 [facility] [address] [place] [address]- 1026 Jul, [facility] [address] [facility] [id number] [place] [address]- 5487 16 Jun, 2014 [facility] [place] [facility] [address] [id number] [place] [address]- 8224 16 Jun, 2014 [facility] [place] [facility] [address] [id number] [place] [address]- 4215 12 Jun, 2014 [facility] [place] [facility] [address] [id number] [place] [address]- 6044 12 Jun, 2014 [facility] [place] [facility] [address] [id number] [place] [address]- 2292 11 Jun, 2014 [facility] [place] [facility] [address] [id number] [place] [address]- 1529 Jun, [facility] [place] [facility] [address] [id number] [place] [address]- 6249 Jun, [facility] [place] [facility] [address] [id number] [place] [address]- 7483 Jun, [facility] [place] [facility] [address] [id number] [place] [address]- 5373 May, [facility] [place] [facility] [address] [id number] [place] [address]- 1411 May, [facility] [place] [facility] [address] [id number] [place] [address]- 7869 May, [facility] [place] [facility] [address] [id number] [place] [address]- 9202 May, [facility] [place] [facility] [address] [id number] [place] [address]- 5895 Apr, [facility] [place] [facility] [address] [id number] [place] [address]- 4596 Mar, [facility] [place] [facility] [address] [id number] [place] [address]- 9946 Mar, [facility] [place] [facility] [address] [id number] [place] [address]- 5438 Mar, [facility] [place] [facility] [address] [id number] [place] [address]- 6145 Mar, [facility] [place] [facility] [address] [id number] [place] [address]- 7466 Mar, [facility] [place] [facility] [address] [id number] [place] 0562 Mar, [facility] [place] [facility] [address] [id number] [place] [address]- 3807 Mar, [facility] [place] [facility] [address] [id number] [place] [address]- 9149 Mar, [facility] [place] [facility] [address] [id number] [place] [address]- 4136 Mar, [facility] [place] [facility] [address] [id number] [place] [address]- 6441 Feb, [facility] [place] [facility] [address] [id number] [place] [address]- 3544 Feb, [facility] [place] [facility] [address] [id number] [place] [address]- 2647 Feb, [facility] [place] [facility] [address] [id number] [place] [address]- 5788 17 Feb, 2014 [facility] [place] [facility] [address] [id number] [address]- 9986 Feb, [facility] [place] [facility] [address] [id number] [address]- 8361 14 Feb, 2014 [facility] [place] [facility] [address] [id number] [place] [address]- 9397 Feb, [facility] [place] [facility] [address] [id number] [place] [address]- 2388 Feb, [facility] [place] [facility] [address] [id number] [place] [address]- 8036 Jan, [facility] [place] [facility] [address] [id number] [place] [address]- 6591 23 Jan, 2014 [facility] [place] [facility] [address] [id number] [place] [address] 16 Jan, 2014 [facility] [place] [facility] [address] [id number] [place] [address] 16 Jan, 2014 [facility] [place] [facility] [address] [id number] [place] [address] 15 Jan, 2014 [facility] [place] [facility] [address] [id number] [place] [address] 15 Jan, 2014 [facility] [place] [facility] [address] [id number] [place] [address] 14 Jan, 2014 [facility] [place] [facility] [address] [id number] [place] [address] 14 Jan, 2014 [facility] [place] [facility] [address] [id number] [place] [address] 14 Jan, 2014 [facility] [place] [facility] [address] [id number] [place] [address] 14 Jan, 2014 [facility] [place] [facility] [address] [id number] [place] [address] 18 Dec, 2013 [facility] [place] [facility] [address] [id number] [place] [address] 18 Dec, 2013 [facility] [place] [facility] [address] [id number] [place] [address] 10 Dec, 2013 [facility] [place] [facility] [address] [id number] [place] [address] 10 Dec, 2013 [facility] [place] [facility] [address] [id number] [place] [address] Nov, [facility] [place] [facility] [address] [id number] [place] [address] Nov, [facility] [place] [facility] [address] [id number] [place] [address] Nov, [facility] [place] [facility] [address] [id number] [place] [address] Nov, [facility] [place] [facility] [address] [id number] [place] [address] Nov, [facility] [place] [facility] [address] [id number] [place] [address] Oct, [facility] [place] [facility] [address] [id number] [place] [address] Oct, [facility] [place] [facility] [address] [id number] [place] [address] Oct, [facility] [place] [facility] [address] [id number] [place] [address] Oct, [facility] [place] [facility] [address] [id number] [place] [address] Sep, [facility] [place] [facility] [address] [id number] [place] [address] Sep, [facility] [place] [facility] [address] [id number] [place] [address] Sep, [facility] [place] [facility] [address] [id number] [place] [address] Sep, [facility] [place] [facility] [address] [id number] [place] [address] Sep, [facility] [place] [facility] [address] [id number] [place] [address] Sep, [facility] [place] [facility] [address] [id number] [place] [address] Sep, [facility] [place] [facility] [address] [id number] [place] [address] Sep, [facility] [place] [facility] [address] [id number] [place] [address] August, [facility] [place] [facility] [address] [id number] [place] [address] August, [facility] [place] [facility] [address] [id number] [place] [address] August, [facility] [place] [facility] [address] [id number] [place] [address] August, [facility] [place] [facility] [address] [id number] [place] [address] August, [facility] [place] [facility] [address] [id number] [place] [address] August, [facility] [place] [facility] [address] [id number] [place] [address] August, [facility] [place] [facility] [address] [id number] [place] [address] Jul, [facility] [place] [facility] [address] [id number] [place] [address] Jul, [facility] [place] [facility] [address] [id number] [place] [address] Jul, [facility] [place] [facility] [address] [id number] [place] [address] Jul, [facility] [place] [facility] [address] [id number] [place] [address] Jul, [facility] [place] [facility] [address] [id number] [place] [address] Jul, [facility] [place] [facility] [address] [id number] [place] [address] Jul, [facility] [place] [facility] [address] [id number] [place] [address] Jul, [facility] [place] [facility] [address] [id number] [place] [address] Jul, [facility] [place] [facility] [address] [id number] [place] [address] Jul, [facility] [place] [facility] [address] [id number] [place] [address] Jul, [facility] [place] [facility] [address] [id number] [place] [address] Jul, [facility] [place] [facility] [address] [id number] [place] [address] Jun, [facility] [place] [facility] [address] [id number] [place] [address] Jun, [facility] [place] [facility] [address] [id number] [place] [address] Jun, [facility] [place] [facility] [address] [id number] [place] [address] Jun, [facility] [place] [facility] [address] [facility] [id number] [place] [address] Jun, [facility] [place] [facility] [address] [facility] [id number] [place] [address] May, [facility] [place] [facility] [address] [facility] [id number] [place] [address] May, [facility] [place] [facility] [address] [facility] [id number] [place] [address] May, [facility] [place] [facility] [address] [facility] [id number] [place] [address] May, [facility] [place] [facility] [address] [facility] [id number] [place] [address] May, [facility] [place] [facility] [address] [facility] [id number] [place] [address] May, [facility] [place] [facility] [address] [facility] [id number] [place] [address] May, [facility] [place] [facility] [address] [facility] [id number] [place] [address] May, [facility] [place] [facility] [address] [facility] [id number] [place] [address] Mar, [facility] [place] [facility] [address] [id number] [place] [address] Mar, [facility] [place] [facility] [address] [id number] [place] [address] Mar, [facility] [place] [facility] [address] [id number] [place] [address] Mar, [facility] [place] [facility] [address] [id number] [place] [address] Mar, [facility] [place] [facility] [address] [id number] [place] [address] Mar, [facility] [place] [facility] [address] [id number] [place] [address] Feb, [facility] [place] [facility] [address] [id number] [address] Feb, [facility] [place] [facility] [address] [id number], [place] [address] Jan, [facility] [place] [facility] [address] [id number], [place] [address] Jan, [facility] [place] [facility] [address] [id number], [place] [address] Jan, [facility] [place] [facility] [address] [id number], [place] [address] Jan, [facility] [place] [facility] [address] [id number], [place] [address] Jan, [facility] [place] [facility] [address] [id number], [place] [address] Jan, [facility] [place] [facility] [address] [id number], [place] [address] Jan, [facility] [place] [facility] [address] [id number], [place] [address] Jan, [facility] [place] [facility] [address] [id number] [place] [address] Jan, [facility] [address] [id number] [place] [address] Jan, [facility] [place] [facility] [address] [id number] [place] [address] Dec, [facility] [address] [id number] [place] [address] Nov, [facility] [address] [id number] [place] [address] Nov, [facility] [address] [id number] [place] [address] Nov, [facility] [address] [id number] [place] [address] Oct, [facility] [address] [id number] [place] [address] Oct, [facility] [address] [id number] [place] [address] August, [facility] [address] [id number] [place] [address] Apr, [facility] [address] [id number] [place] [address] Apr, [facility] [address] [id number] [place] [address] Feb, [facility] [address] [id number] [place] [address] Feb, [facility] [place] [facility] [address] [id number] [place] [address] Dec, [facility] [place] [facility] [address] [id number] [place] [address]- [address] Dec, [facility] [address] [id number] [place] [address] Oct, [facility] [place] [address] [facility] [id number] [place] [address] Oct, [facility] [place] [address] [facility] [id number] [place] [address] Oct, [facility] [place] [address] [facility] [id number] [place] [address] Jul, IMMUNIZATIONS No Known Immunizations SOCIAL HISTORY Never Assessed REASON FOR VISIT EMR-[facility] [place] PLAN OF CARE VITAL SIGNS MEDICATIONS [...] for psychosis/mental illness , last one in [facility] 4 years ago
--- OUTSIDE RECORDS SUMMARY | 2018-09-02 13:08 | XMS REPORT ---
Author Author Migration, Doctor Organization [facility] Address Unknown Phone Unavailable Care Team Providers Care Customer Success Manager Name Role Phone Migration, Doctor Unavailable Unavailable PROBLEMS Type Condition ICD9-CM Code WDU63-WN Code Onset Dates Condition Status SNOMED Code Problem History of lupus Z87.39 Active 524760221 Problem OAB (overactive bladder) N32.81 Active 886569253 Problem Chronic pain syndrome G89.4 Active 966710839 Problem Type 2 diabetes mellitus without complication, without long-term current use of insulin E11.9 Active 799002384 Problem Depression with anxiety F41.8 Active 427735940 Problem Paranoid schizophrenia F20.0 Active 05845202 Problem Essential hypertension I10 Active 17501961 Problem Dyslipidemia E78.5 Active 717226036 Problem Schizoaffective disorder, depressive type F25.1 Active 12621698 Problem Seasonal allergic rhinitis due to other allergic trigger J30.89 Active 109713743 Problem DM neuro manif type II E11.49 Active 68169518 Problem Primary insomnia F51.01 Active 1188134 Problem Other allergic rhinitis J30.89 Active 432209082 Problem Menopausal syndrome (hot flashes) N95.1 Active 378551258 Problem Tobacco abuse Z72.0 Active 128886630 Problem Other seasonal allergic rhinitis J30.2 Active 635418277 Problem Hypothyroidism (acquired) E03.9 Active 828378708 Problem Gastroesophageal reflux disease, esophagitis presence not specified K21.9 Active 009854295 Problem Migraine without aura and without status migrainosus, not intractable G43.009 Active 165153380 Problem Cigarette nicotine dependence without complication F17.210 Active 31743634 Problem Morbid obesity due to excess calories E66.01 Active 029654751 Problem Allergic rhinitis, unspecified seasonality, unspecified trigger J30.9 Active 59902331 Problem Chronic obstructive pulmonary disease, unspecified COPD type J44.9 Active 91543493 Problem Gastroesophageal reflux disease without esophagitis K21.9 Active 739357004 Problem COPD exacerbation J44.1 Active 822304631 Problem Seasonal allergic rhinitis due to pollen J30.1 Active 03814702 Problem Diabetic polyneuropathy associated with type 2 diabetes mellitus E11.42 Active 593998720 Problem Type 2 diabetes mellitus with diabetic neuropathic arthropathy, 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 Active 866231846 ALLERGIES No Information ENCOUNTERS Encounter Location Date Diagnosis [place] [id number] [place] [address] 19965- 6203 Sep, [place] [address] 05901- 4620 Jul, [place] [address] 58230- 5354 Jul, Type 2 diabetes mellitus without complication, without long- term current use of insulin E11.9 and Hypothyroidism (acquired) E03.9 [place] [id number] [place] [address] 46310- 0501 Jul, Encounter for Medicare annual wellness exam Z00.00 ; Morbid obesity due to excess calories E66.01 ; Diabetic polyneuropathy associated with type 2 diabetes mellitus E11.42 ; Chronic obstructive pulmonary disease, unspecified COPD type J44.9 ; Schizoaffective disorder, depressive type F25.1 and Hypothyroidism (acquired) E03.9 [place] [id number] [place] [address] 47199- 6114 Jun, Gastroesophageal reflux disease without esophagitis K21.9 [place] [id number] [place] [address] 95921- 4155 Jun, Paranoid schizophrenia F20.0 [place] [id number] [place] [address] 89517- 2470 Jun, Schizoaffective disorder, depressive type F25.1 [place] [id number] [place] [address] 11295- 1727 Jun, [place] [id number] [place] [address] 36338- 7063 Jun, Schizoaffective disorder, depressive type F25.1 [place] [id number] [place] [address] 95958- 8366 Jun, Cigarette nicotine dependence without complication F17.210 [facility] [id number] [place] [address] 54305- 5275 Jun, Type 2 diabetes mellitus without complication, without long- term current use of insulin E11.9 [facility] [id number] [place] [address] 61599- 8304 15 Jun, 2018 [facility] [id number] [place] [address] 76386- 7762 Jun, [facility] [id number] [place] [address] 09328- 2392 Jun, [facility] [id number] [place] [address] 63436- 9543 Jun, [facility] [id number] [place] [address] 82338- 1884 Jun, [facility] [id number] [place] [address] 38205- 6511 Jun, Paranoid schizophrenia F20.0 ; Type 2 diabetes mellitus without complication, without long-term current use of insulin E11.9 ; Hypothyroidism (acquired) E03.9 and Morbid obesity E66.01 [place] [id number] [place] [address] 25485- 5203 May, Paranoid schizophrenia F20.0 [facility] [id number] [place] [address] 61709- 3101 May, Hypothyroidism (acquired) E03.9 and Dyslipidemia E78.5 [place] [id number] [place] [address] 38346- 7456 May, Cigarette nicotine dependence without complication F17.210 [facility] [id number] [place] [address] 12006- 7490 18 May, 2018 [facility] [id number] [place] [address] 81240- 0229 14 May, 2018 Type 2 diabetes mellitus without complication, without long- term current use of insulin E11.9 ; Essential hypertension I10 ; Hypothyroidism (acquired) E03.9 and Dyslipidemia E78.5 [facility] [id number] [place] [address] 96025- 1527 13 May, 2018 [facility] [id number] [place] [address] 87008- 6213 May, Schizoaffective disorder, depressive type F25.1 [place] [address] 02617- 2836 May, Paranoid schizophrenia F20.0 [place] [id number] [place] [address] 34558- 1597 07 May, 2018 [facility] [address] [place] [address] May, [place] [id number] [place] [address] 20678- 2864 May, [facility] [id number] [place] [address] 75668- 0573 May, Type 2 diabetes mellitus without complication, without long- term current use of insulin E11.9 ; Essential hypertension I10 ; Hypothyroidism (acquired) E03.9 and Dyslipidemia E78.5 [facility] [id number] [place] [address] 69455- 2503 May, [facility] [id number] [place] [address] 20270- 4657 May, Acute nasopharyngitis J00 [facility] [address] 52754 -9277 04 May, 2018 Allergic rhinitis, unspecified seasonality, unspecified trigger J30.9 [facility] [id number] [place] [address] 43639- 0988 May, [facility] [address] [place] [address]- 0051 Apr, Schizoaffective disorder, depressive type F25.1 [facility] [id number] [place] [address] 36374- 1484 Apr, [facility] [id number] [place] [address] 97342- 4337 Apr, Cigarette nicotine dependence without complication F17.210 [facility] [id number] [place] [address] 67894- 9080 Apr, [facility] [id number] [place] [address] 53341- 7307 Apr, Cigarette nicotine dependence without complication F17.210 [facility] [id number] [place] [address] 00216- 2000 Apr, [facility] [id number] [place] [address] 19573- 0189 Apr, Migraine without aura and without status migrainosus, not intractable G43.009 [facility] [id number] [place] [address] 09120- 4810 Apr, Migraine without aura and without status migrainosus, not intractable G43.009 [facility] [id number] [place] [address] 71888- 7006 Mar, Schizoaffective disorder, depressive type F25.1 ; BMI 45.0- 49.9, adult Z68.42 and BMI 40.0-44.9, adult Z68.41 [facility] [id number] [place] [address] 92358- 2443 Mar, Primary insomnia F51.01 [facility] [id number] [place] [address] 66871- 1204 Mar, [facility] [id number] [place] [address] 50656- 8664 Feb, Primary insomnia F51.01 [facility] [id number] [place] [address] 43837- 1723 Feb, [place] [id number] [place] [address] 89407- 2494 Jan, Schizoaffective disorder, depressive type F25.1 and BMI 45.0 -49.9, adult Z68.42 [place] [id number] [place] [address] 71969- 2559 Jan, [place] [address] 52307- 8957 Jan, Type 2 diabetes mellitus with diabetic neuropathic arthropathy, 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 ; Menopausal syndrome (hot flashes) N95.1 and BMI 40.0-44.9, adult Z68.41 [place] [id number] [place] [address] 28127- 9273 Jan, Paranoid schizophrenia F20.0 [place] [address] 70102- 1646 Jan, [place] [address] 81301- 2974 Jan, Schizoaffective disorder, depressive type F25.1 [place] [id number] [place] [address] 06761- 2875 Jan, [place] [id number] [place] [address] 45083- 0471 Jan, Chronic obstructive pulmonary disease, unspecified COPD type J44.9 ; BMI 45.0-49.9, adult Z68.42 ; Type 2 diabetes mellitus without complication, without long-term current use of insulin E11.9 ; Hypothyroidism ( acquired) E03.9 ; Encounter for immunization Z23 ; Gastroesophageal reflux disease without esophagitis K21.9 ; Primary insomnia F51.01 and Acute nasopharyngitis J00 [place] [id number] [place] [address] 17677- 8262 Dec, [place] [id number] [place] [address] 56496- 2172 21 Dec, 2017 Schizoaffective disorder, depressive type F25.1 and BMI 45.0 -49.9, adult Z68.42 [facility] [id number] [place] [address] 31569- 9777 Dec, [facility] [id number] [place] [address] 74158- 5171 Dec, [facility] [id number] [place] [address] 62346- 4687 Dec, Acute non-recurrent frontal sinusitis J01.10 [facility] [id number] [place] [address] 03572- 8328 18 Dec, 2017 Acute non-recurrent frontal sinusitis J01.10 ; Weakness of left leg R29.898 ; At high risk for falls Z91.81 and BMI 45.0-49.9, adult Z68.42 [facility] [id number] [place] [address] 00987- 4527 17 Dec, 2017 [facility] [id number] [place] [address] 50925- 7008 Dec, [facility] [id number] [place] [address] 61681- 4252 Dec, Schizoaffective disorder, depressive type F25.1 [facility] [id number] [place] [address] 66768 -1698 Dec, Acute nasopharyngitis J00 [facility] [address] [address]- 4216 Dec, Schizoaffective disorder, depressive type F25.1 [facility] [id number] [place] [address] 94769- 7142 Dec, [facility] [id number] [place] [address] 82599- 1304 Nov, Schizoaffective disorder, depressive type F25.1 and BMI 45.0 -49.9, adult Z68.42 [place] [address] [address]- 9855 Nov, [place] [id number] [place] [address] 44040- 9477 Nov, [place] [id number] [place] [address] 50213- 0303 Nov, Schizoaffective disorder, depressive type F25.1 [place] [id number] [place] [address] 74204- 9459 Nov, Well woman exam Z01.419 ; BMI 45.0-49.9, adult Z68.42 ; Screening breast examination Z12.31 and Dietary counseling and surveillance Z71.3 [place] [id number] [place] [address] 57834- 0680 Nov, Paranoid schizophrenia F20.0 [place] [id number] [place] [address] 15698- 7761 Nov, Gastroesophageal reflux disease, esophagitis presence not specified K21.9 [place] [id number] [address]- 3198 Oct, Paranoid schizophrenia F20.[id number] [place] [address] Oct Chronic pain syndrome G89.4 and Schizoaffective disorder, depressive type F25.1 [place] [address] [address]- 5876 Oct, Chronic pain syndrome G89.4 and Schizoaffective disorder, depressive type F25.1 [place] [id number] [place] [address] 60607- 6241 Oct, Type 2 diabetes mellitus without complication, without long- term current use of insulin E11.9 [place] [id number] [place] [address] 86538- 4163 Oct, Essential hypertension I10 and DM neuro manif type II E11.49 [place] [id number] [place] [address] 07552- 3859 Oct, [facility] [id number] [place] [address] 67843- 3351 Oct, Schizoaffective disorder, depressive type F25.1 and BMI 45.0 -49.9, adult Z68.42 [place] [id number] [place] [address] 57286- 5502 Oct, [place] [id number] [place] [address] 16597- 6633 Oct, Paranoid schizophrenia F20.0 [place] [id number] [place] [address] 78465- 9863 Oct, Type 2 diabetes mellitus with diabetic neuropathic arthropathy, 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 ; Essential hypertension I10 ; Hypothyroidism (acquired) E03.9 ; Chronic obstructive pulmonary disease, unspecified COPD type J44.9 and Diabetic polyneuropathy associated with type 2 diabetes mellitus E11.42 [place] [id number] [place] [address] 51285- 8400 Sep, Paranoid schizophrenia F20.0 [place] [id number] [place] [address] 36470- 0839 Sep, Paranoid schizophrenia F20.0 and BMI 45.0-49.9, adult Z68.42 [place] [id number] [place] [address] 25071- 1466 Sep, Schizoaffective disorder, depressive type F25.1 [place] [id number] [place] [address] 29606- 3035 Sep, [place] [id number] [place] [address] 24538- 3612 Sep, Paranoid schizophrenia F20.0 [place] [id number] [place] [address] 50332- 8453 Sep, [facility] [id number] [place] [address] 66567- 6684 Sep, Hypothyroidism (acquired) E03.9 [facility] [id number] [place] [address] 00653- 8355 Sep, [facility] [id number] [place] [address] 83065- 2756 August, Schizoaffective disorder, depressive type F25.1 [facility] [id number] [place] [address] 43267- 0331 August, [facility] [id number] [place] [address] 22081- 8268 August, [facility] [id number] [place] [address] 49089- 2446 August, [facility] [id number] [place] [address] 26092- 2365 August, Paranoid schizophrenia F20.0 [facility] [id number] [place] [address] 40508- 7557 August, History of lupus Z87.39 and Chronic pain syndrome G89.4 [facility] [id number] [place] [address] 16271- 8596 August, [facility] [id number] [place] [address] 24404 -8901 August, Seasonal allergic rhinitis, unspecified trigger J30.2 and BMI 45.0-49.9, adult Z68.42 [facility] [id number] [place] [address] 68639- 1018 Jul, Schizoaffective disorder, depressive type F25.1 [facility] [id number] [place] [address] 59123- 8077 Jul, [facility] [id number] [place] [address] 76709- 8925 13 Jul, 2017 Hypothyroidism (acquired) E03.9 [facility] [id number] [place] [address] 45973- 1600 11 Jul, 2017 Chronic obstructive pulmonary disease, unspecified COPD type J44.9 and Type 2 diabetes mellitus without complication, without long-term current use of insulin E11.9 [facility] [address] 59555- 5491 Jul, Paranoid schizophrenia F20.0 [facility] [address] 72459- 9159 Jun, Hypothyroidism (acquired) E03.9 and Seasonal allergic rhinitis due to pollen J30.1 [facility] [address] 74094 -1224 Jun, Shortness of breath at rest R06.02 ; COPD exacerbation J44.1 and BMI 45.0-49.9, adult Z68.42 [facility] [address] 28199- 9509 Jun, [facility] [address] 67493- 6805 Jun, Paranoid schizophrenia F20.0 ; Depression with anxiety F41.8 and BMI 45.0-49.9, adult Z68.42 [place] [address] 18255- 6628 Jun, Schizoaffective disorder, depressive type F25.1 [facility] [id number] [place] [address] [id number] [phone] Jun, 2017 Dental caries K02.9 [place] [address] 42207- 6043 Jun, Paranoid schizophrenia F20.0 [facility] [address] 77376- 9626 May, Migraine without aura and without status migrainosus, not intractable G43.009 ; DM neuro manif type II E11.49 and Type 2 diabetes mellitus without complication, without long-term current use of insulin E11.9 [facility] [id number] [place] [address] 85597- 5834 May, Migraine without aura and without status migrainosus, not intractable G43.009 [facility] [address] 29711- 8567 May, Depression with anxiety F41.8 [facility] [id number] [place] [address] [id number] May, [place] [address] 09025- 5895 May, [facility] [address] 20994- 8754 May, [place] [address] 91828- 4439 May, Hypothyroidism (acquired) E03.9 [facility] [address] 88271- 7595 May, Paranoid schizophrenia F20.0 [facility] [address] 75729- 3035 May, Type 2 diabetes mellitus without complication, [...] N32.81 and Controlled substance agreement signed Z79.899 [place] [address] 76634- 4935 May, Controlled substance agreement signed Z79.899 [facility] [id number] [place] [address] 98743- 8819 Apr, [facility] [id number] [place] [address] [id number] Apr, Dental examination Z01.20 [facility] [address] 23988- 3316 Apr, Paranoid schizophrenia F20.0 [facility] [id number] [place] [address] 49232- 6009 Apr, Hypertension, unspecified type I10 [facility] [id number] [place] [address] 43824- 2164 Apr, Paranoid schizophrenia F20.0 [facility] [address] 40122- 4949 Apr, [facility] [id number] [place] [address] 61754- 4444 Apr, Tobacco abuse Z72.0 [facility] [address] 33579- 3140 Apr, [facility] [id number] [place] [address] 88110- 2416 Mar, [facility] [id number] [place] [address] 88860- 1793 Mar, Paranoid schizophrenia F20.0 and BMI 45.0-49.9, adult Z68.42 [facility] [address] 59131- 5713 Mar, Schizoaffective disorder, depressive type F25.1 [facility] [id number] [place] [address] 04481- 2352 Mar, [facility] [address] 40606- 1780 Mar, Schizoaffective disorder, depressive type F25.1 [place] [id number] [place] [address] 18244- 9165 Mar, Hypothyroidism, unspecified type E03.9 [facility] [id number] [place] [address] 48287 -8774 Feb, Gastroenteritis K52.9 and BMI 45.0-49.9, adult Z68.42 [place] [address] 21188- 7200 Feb, [place] [address] 51420- 8015 Feb, [place] [address] 35184- 6618 Feb, [address] 18221- 3854 Feb, [place] [address] 85792- 5826 Feb, Paranoid schizophrenia F20.[address] 81775- 9028 Feb, Gastroesophageal reflux disease without esophagitis K21.9 ; Other seasonal allergic rhinitis J30.2 ; Other allergic rhinitis J30.89 ; Tobacco abuse Z72.0 and BMI 40.0-44.9, adult Z68.[address] 73439- 6081 Feb, Onychomycosis B35.1 ; Callus of foot L84 and DM neuro manif type II E11.[address] 95870- 7689 Jan, Chronic allergic rhinitis J30.9 [place] [address] 15059- 0171 Jan, [place] [address] [place] [address]- 6955 Jan, Schizoaffective disorder, depressive type F25.1 [facility] [id number] [place] [address] 38265- 0195 Jan, [facility] [id number] [place] [address] 54750 -8699 07 Jan, 2017 Sore throat J02.9 and Seasonal allergic rhinitis due to other allergic trigger J30.89 [facility] [id number] [place] [address] 56787- 9200 Jan, [facility] [address] 66063- 4374 Jan, [facility] [id number] [place] [address] 24829 -9865 Jan, Chronic allergic rhinitis J30.9 [facility] [place] [id number] [place] [address] 18460- 3205 27 Dec, 2016 Paranoid schizophrenia F20.0 ; Primary insomnia F51.01 and Schizoaffective disorder, depressive type F25.1 [facility] [place] [id number] [place] [address] 27369- 4230 21 Dec, 2016 Chronic pain syndrome G89.4 ; Cervicalgia of occipito- atlanto-axial region M54.2 ; Menopausal syndrome (hot flashes) N95.1 and Encounter for immunization Z23 [place] [id number] [place] [address] 34722- 5883 14 Dec, 2016 [place] [id number] [place] [address] 12330- 2895 13 Dec, 2016 [place] [id number] [place] [address] 68008- 9571 08 Dec, 2016 Paranoid schizophrenia F20.0 [place] [id number] [place] [address] 58671- 1971 Dec, Schizoaffective disorder, depressive type F25.1 [place] [id number] [place] [address] 53471- 8364 Nov, Hypothyroidism, unspecified type E03.9 [facility] [id number] [place] [address] 98512 -9426 Nov, Acute seasonal allergic rhinitis due to other allergen J30.89 [place] [id number] [place] [address] 23775- 9733 Nov, [place] [id number] [place] [address] 24564- 3693 Nov, Hypothyroidism, unspecified type E03.9 and Other elevated white blood cell (WBC) count D72.828 [place] [id number] [place] [address] 55977- 6515 Nov, Schizoaffective disorder, depressive type F25.1 [place] [id number] [place] [address] 37143- 8934 Nov, Paranoid schizophrenia F20.0 [place] [id number] [place] [address] 75548- 9804 Nov, Type 2 diabetes mellitus without complication, without long- term current use of insulin E11.9 ; Morbid obesity due to excess calories E66.01 and Chronic pain syndrome G89.4 [place] [id number] [place] [address] 62527- 6397 Oct, Paranoid schizophrenia F20.0 [place] [id number] [place] [address] 97787- 3283 Oct, [place] [id number] [place] [address] 80506- 6479 Oct, Schizoaffective disorder, depressive type F25.1 [place] [id number] [place] [address] 50809- 7256 Oct, Hypothyroidism, unspecified type E03.9 and Other elevated white blood cell (WBC) count D72.828 [place] [address] [address] 1499 Oct, Morbid obesity due to excess calories E66.01 ; Chronic obstructive pulmonary disease, unspecified COPD type J44.9 ; History of lupus Z87.39 ; Hypothyroidism, unspecified type E03.9 ; Gastroesophageal reflux disease without esophagitis K21.9 ; Primary insomnia F51.01 and Chronic pain syndrome G89.4 [facility] [id number] [place] [address] 16867- 9516 Sep, [facility] [id number] [place] [address] 09845- 5285 Sep, [facility] [id number] [place] [address] 83148- 4619 Sep, [facility] [id number] [place] [address] 59749- 1784 Sep, Paranoid schizophrenia F20.0 [facility] [address] [address]- 2094 Sep, [facility] [id number] [place] [address] 80964- 7904 Sep, Paranoid schizophrenia F20.0 [facility] [id number] [place] [address] 73306- 8767 Sep, [facility] [address] [address] 2031 August, Paranoid schizophrenia F20.0 [facility] [address] [address]- 7429 Jul, [facility] [id number] [place] [address] 93708- 6928 Jul, Type 2 diabetes mellitus without complication, without long- term current use of insulin E11.9 ; Morbid obesity due to excess calories E66.01 ; Depression with anxiety F41.8 ; Hypothyroidism, unspecified type E03.9 ; Seasonal allergic rhinitis due to other allergic trigger J30.89 ; Pain, dental K08.89 and Gastroesophageal reflux disease without esophagitis K21.9 [facility] [address] [id number] 12 Jul, 2016 Dental examination Z01.20 [facility] [id number] [place] [address] 62178- 7847 07 Jul, 2016 Paranoid schizophrenia F20.0 [place] [id number] [place] [address] 90265- 8565 13 Jun, 2016 Paranoid schizophrenia F20.0 and Depression with anxiety F41.8 [place] [id number] [place] [address] 17708- 7106 10 Jun, 2016 Paranoid schizophrenia F20.0 and Depression with anxiety F41.8 [place] [id number] [place] [address] 95536- 8143 09 Jun, 2016 [place] [id number] [place] [address] 01657- 0178 Jun, [facility] [id number] [place] [address] 72245 -6019 Jun, Seasonal allergic rhinitis due to other allergic trigger J30.89 [facility] [place] [id number] [place] [address] 00012 -7713 25 May, 2016 Sore throat J02.9 ; Other viral agents as the cause of diseases classified elsewhere B97.89 and Acute upper respiratory infection, unspecified J06.9 [place] [id number] [place] [address] 94792- 4484 08 May, 2016 Paranoid schizophrenia F20.0 and Depression with anxiety F41.8 [place] [id number] [place] [address] 51685- 9866 Apr, Other seasonal allergic rhinitis J30.2 [place] [id number] [place] [address] 06862- 1788 Apr, Paranoid schizophrenia F20.0 and Depression with anxiety F41.8 [facility] [id number] [place] [address] 97903 -8312 Apr, Bronchitis J40 and Sore throat J02.9 [place] [id number] [place] [address] 64662- 5548 Apr, Type 2 diabetes mellitus without complication, without long- term current use of insulin E11.9 [facility] [address] 44995 -4089 Apr, Bronchitis J40 [place] [address] 37449- 2741 Apr, [place] [address] 55393- 5284 Apr, [place] [id number] [place] [address] 95314- 9779 Mar, Type 2 diabetes mellitus without complication, [...] R60.9 and Other seasonal allergic rhinitis J30.2 [place] [id number] [place] [address] 36498- 8477 Mar, Paranoid schizophrenia F20.0 and Depression with anxiety F41.8 [place] [id number] [place] [address] 47712- 0588 Feb, [place] [address] 47753- 9972 Feb, [place] [id number] [place] [address] 19287- 5990 Feb, [place] [address] 33272- 5905 14 Feb, 2016 [facility] [id number] [place] [address] 81091- 0346 14 Feb, 2016 Type 2 diabetes mellitus without complication, without long- term current use of insulin E11.9 ; ARIAS on CPAP G47.33 and Preoperative evaluation to rule out surgical contraindication Z01.818 [facility] [id number] [place] [address] 76212- 8938 09 Feb, 2016 Paranoid schizophrenia F20.0 and Depression with anxiety F41.8 [facility] [id number] [place] [address] 01188- 9662 Jan, [facility] [id number] [place] [address] 84109- 0180 Jan, Paranoid schizophrenia F20.0 and Depression with anxiety F41.8 [facility] [id number] [place] [address] 57992- 0450 Jan, [facility] [id number] [place] [address] 29720- 1746 Jan, Muscle strain T14.8 [facility] [id number] [place] [address] 64292- 8751 Jan, Paranoid schizophrenia F20.0 [facility] [id number] [place] [address] 44654- 5857 Jan, [facility] [id number] [place] [address] 17599- 2955 Jan, Paranoid schizophrenia F20.0 and Depression with anxiety F41.8 [facility] [id number] [place] [address] 53889- 5682 Jan, [facility] [id number] [place] [address] 89146- 6619 Jan, [facility] [id number] [place] [address] 56641- 0349 Dec, [facility] [id number] [address]- 5141 23 Dec, 2015 Paranoid schizophrenia F20.0 [facility] [id number] [place] [address] 17022- 0972 16 Dec, 2015 Paranoid schizophrenia F20.0 and Depression with anxiety F41.8 [facility] [address], [place] [address]- 4979 Nov, [facility] [id number] [place] [address] 75802- 3265 Nov, Paranoid schizophrenia F20.0 [place] [id number] [place] [address] 18615- 7485 Nov, Paranoid schizophrenia F20.0 and Depression with anxiety F41.8 [place] [id number] [place] [address] 01573- 7930 Nov, Type 2 diabetes mellitus without complication, without long- term current use of insulin E11.9 ; Paranoid schizophrenia F20.0 ; Chronic obstructive pulmonary disease, unspecified COPD type J44.9 ; Morbid obesity due to excess calories E66.01 and Parkinsonian tremor G20 [facility] [id number] [place] [address] 15495- 5637 Nov, [facility] [address], [place] [address]- 6449 Oct, Paranoid schizophrenia F20.0 [facility] [id number] [place] [address] 77154- 0330 Oct, Paranoid schizophrenia F20.0 [facility] [address] [address]- 4947 Oct, Paranoid schizophrenia F20.0 and Depression with anxiety F41.8 [facility] [address], [place] [address]- 9743 Oct, [facility] [id number] [place] [address] 83667- 4820 Oct, Paranoid schizophrenia F20.0 and Depression with anxiety F41.8 [place] [address], [place] [address]- 3265 Oct, Nasal sore J34.89 [place] [id number] [place] [address] 65826- 5184 Oct, Type 2 diabetes mellitus without complication, without long- term current use of insulin E11.9 ; Depression with anxiety F41.8 ; Hypothyroidism, unspecified type E03.9 and History of lupus Z87.39 [place] [id number] [place] [address] 98548- 2377 Oct, [place] [id number] [place] [address] 91716- 0996 Oct, Type 2 diabetes mellitus without complication, [...] edema R60.9 and History of lupus Z87.39 [place] [address] [address]- 2511 Feb, [place] [id number] [place] [address] 63698- 5551 Jan, [place] [id number] [place] [address] 05611- 0217 Jan, [place] [id number] [place] [address] 59581- 8671 Jan, [place] [address], [place] [address]- 6570 Dec, [place] [address] [place] [address]- 6346 Nov, [facility] [address] [place] [address]- 7679 Nov, [facility] [address] [place] [address]- 5747 Oct, [facility] [id number] [place] [address]- 3113 Oct, [facility] [address] [place] [address]- 3668 Oct, [facility] [id number] [place] [address], [place] [address]- 6140 Sep, Allergic rhinitis 477.9 [facility] [address] [place] [address]- 0839 Sep, Rhinitis, allergic 477.9 [facility] [id number] [place] [address]- 0034 Sep, Rhinitis, allergic 477.9 [facility] [address] [place] [address]- 1959 Sep, [facility] [address] [place] [address]- 8419 August, [facility] [address] [place] [address]- 7811 August, [facility] [address], [place] [address]- 5688 August, [facility] [address] [place] [address]- 3996 Jul, [facility] [address] [place] [address]- 5486 14 Jul, 2014 [facility] [address] [place] [address]- 1496 Jul, [facility] [address] [facility] [id number] [place] [address]- 6364 16 Jun, 2014 [facility] [place] [facility] [address] [id number] [place] [address]- 3976 16 Jun, 2014 [facility] [place] [facility] [address] [id number] [place] [address]- 6989 12 Jun, 2014 [facility] [place] [facility] [address] [id number] [place] [address]- 4273 12 Jun, 2014 [facility] [place] [facility] [address] [id number] [place] [address]- 4568 11 Jun, 2014 [facility] [place] [facility] [address] [id number] [place] [address]- 1606 Jun, [facility] [place] [facility] [address] [id number] [place] [address]- 7180 Jun, [facility] [place] [facility] [address] [id number] [place] [address]- 0910 Jun, [facility] [place] [facility] [address] [id number] [place] [address]- 0018 May, [facility] [place] [facility] [address] [id number] [place] [address]- 4014 May, [facility] [place] [facility] [address] [id number] [place] [address]- 6120 May, [facility] [place] [facility] [address] [id number] [place] [address]- 9112 May, [facility] [place] [facility] [address] [id number] [place] [address]- 0449 Apr, [facility] [place] [facility] [address] [id number] [place] [address]- 3406 Mar, [facility] [place] [facility] [address] [id number] [place] [address]- 2896 Mar, [facility] [place] [facility] [address] [id number] [place] [address]- 6708 Mar, [facility] [place] [facility] [address] [id number] [place] [address]- 3554 Mar, [facility] [place] [facility] [address] [id number] [place] [address]- 6049 Mar, [facility] [place] [facility] [address] [id number] [place] 7882 Mar, [facility] [place] [facility] [address] [id number] [place] [address]- 2374 Mar, [facility] [place] [facility] [address] [id number] [place] [address]- 2875 Mar, [facility] [place] [facility] [address] [id number] [place] [address]- 6101 Mar, [facility] [place] [facility] [address] [id number] [place] [address]- 2566 Feb, [facility] [place] [facility] [address] [id number] [place] [address]- 9045 Feb, [facility] [place] [facility] [address] [id number] [place] [address]- 7984 Feb, [facility] [place] [facility] [address] [id number] [place] [address]- 7681 17 Feb, 2014 [facility] [place] [facility] [address] [id number] [address]- 5260 Feb, [facility] [place] [facility] [address] [id number], [place] [address]- 5765 14 Feb, 2014 [facility] [place] [facility] [address] [id number] [place] [address]- 5917 Feb, [facility] [place] [facility] [address] [id number] [place] [address]- 0545 Feb, [facility] [place] [facility] [address] [id number] [place] [address]- 7428 Jan, [facility] [place] [facility] [address] [id number] [place] [address]- 6816 23 Jan, 2014 [facility] [place] [facility] [address] [id number] [place] [address]- 8267 16 Jan, 2014 [facility] [place] [facility] [address] [id number] [place] [address]- 2036 16 Jan, 2014 [facility] [place] [facility] [address] [id number] [place] [address]- 8360 15 Jan, 2014 [facility] [place] [facility] [address] [id number] [place] [address]- 4011 15 Jan, 2014 [facility] [place] [facility] [address] [id number] [place] [address]- 0996 14 Jan, 2014 [facility] [place] [facility] [address] [id number] [place] [address]- 9514 14 Jan, 2014 [facility] [place] [facility] [address] [id number] [place] [address]- 1525 14 Jan, 2014 [facility] [place] [facility] [address] [id number] [place] [address]- 0570 14 Jan, 2014 [facility] [place] [facility] [address] [id number] [place] [address]- 2148 18 Dec, 2013 [facility] [place] [facility] [address] [id number] [place] [address]- 4166 18 Dec, 2013 [facility] [place] [facility] [address] [id number] [place] [address]- 5276 10 Dec, 2013 [facility] [place] [facility] [address] [id number] [place] [address]- 3364 10 Dec, 2013 [facility] [place] [facility] [address] [id number] [place] [address]- 3637 Nov, [facility] [place] [facility] [address] [id number] [place] [address]- 8747 Nov, [facility] [place] [facility] [address] [id number] [place] [address]- 9670 Nov, [facility] [place] [facility] [address] [id number] [place] [address]- 7020 Nov, [facility] [place] [facility] [address] [id number] [place] [address]- 3148 Nov, [facility] [place] [facility] [address] [id number] [place] [address]- 6246 Oct, [facility] [place] [facility] [address] [id number] [place] [address]- 5884 Oct, [facility] [place] [facility] [address] [id number] [place] [address]- 9103 Oct, [facility] [place] [facility] [address] [id number] [place] [address]- 0843 Oct, [facility] [place] [facility] [address] [id number] [place] [address]- 2351 Sep, [facility] [place] [facility] [address] [id number] [place] [address]- 2357 Sep, [facility] [place] [facility] [address] [id number] [place] [address]- 2035 Sep, [facility] [place] [facility] [address] [id number] [place] [address]- 8059 Sep, [facility] [place] [facility] [address] [id number] [place] [address]- 1907 Sep, [facility] [place] [facility] [address] [id number] [place] [address]- 9446 Sep, [facility] [place] [facility] [address] [id number] [place] [address]- 3835 Sep, [facility] [place] [facility] [address] [id number] [place] [address]- 2283 Sep, [facility] [place] [facility] [address] [id number] [place] [address]- 4212 August, [facility] [place] [facility] [address] [id number] [place] [address]- 6963 August, [facility] [place] [facility] [address] [id number] [place] [address]- 6886 August, [facility] [place] [facility] [address] [id number] [place] [address]- 7349 August, [facility] [place] [facility] [address] [id number] [place] [address]- 5646 August, [facility] [place] [facility] [address] [id number] [place] [address]- 9325 August, [facility] [place] [facility] [address] [id number] [place] [address]- 9926 August, [facility] [place] [facility] [address] [id number] [place] [address]- 4412 Jul, [facility] [place] [facility] [address] [id number] [place] [address]- 2841 Jul, [facility] [place] [facility] [address] [id number] [place] [address]- 2041 Jul, [facility] [place] [facility] [address] [id number] [place] [address]- 0059 Jul, [facility] [place] [facility] [address] [id number] [place] [address]- 8615 Jul, [facility] [place] [facility] [address] [id number] [place] [address]- 8066 Jul, [facility] [place] [facility] [address] [id number] [place] [address]- 2634 Jul, [facility] [place] [facility] [address] [id number] [place] [address]- 7569 Jul, [facility] [place] [facility] [address] [id number] [place] [address]- 3885 Jul, [facility] [place] [facility] [address] [id number] [place] [address]- 1491 Jul, [facility] [place] [facility] [address] [id number] [place] [address]- 8763 Jul, [facility] [place] [facility] [address] [id number] [place] [address] Jul, [facility] [place] [facility] [address] [id number] [place] [address] Jun, [facility] [place] [facility] [address] [id number] [place] [address] Jun, [facility] [place] [facility] [address] [id number] [place] [address] Jun, [facility] [place] [facility] [address] [id number] [place] [address] Jun, [facility] [place] [facility] [address] [facility] [id number] [place] [address] Jun, [facility] [place] [facility] [address] [facility] [id number] [place] [address] May, [facility] [place] [facility] [address] [facility] [id number] [place] [address] May, [facility] [place] [facility] [address] [facility] [id number] [place] [address] May, [facility] [place] [facility] [address] [facility] [id number] [place] [address] May, [facility] [place] [facility] [address] [facility] [id number] [place] [address] May, [facility] [place] [facility] [address] [facility] [id number] [place] [address] May, [facility] [place] [facility] [address] [facility] [id number] [place] [address] May, [facility] [place] [facility] [address] [facility] [id number] [place] [address] May, [facility] [place] [facility] [address] [facility] [id number] [place] [address] Mar, [facility] [place] [facility] [address] [id number] [place] [address] Mar, [facility] [place] [facility] [address] [id number] [place] [address] Mar, [facility] [place] [facility] [address] [id number] [place] [address] Mar, [facility] [place] [facility] [address] [id number] [place] [address] Mar, [facility] [place] [facility] [address] [id number] [place] [address] Mar, [facility] [place] [facility] [address] [id number] [place] [address] Feb, [facility] [place] [facility] [address] [id number] [address] Feb, [facility] [place] [facility] [address] [id number], [place] [address] Jan, [facility] [place] [facility] [address] [id number], [place] [address] Jan, [facility] [place] [facility] [address] [id number], [place] [address] Jan, [facility] [place] [facility] [address] [id number], [place] [address] Jan, [facility] [place] [facility] [address] [id number], [place] [address] Jan, [facility] [place] [facility] [address] [id number], [place] [address] Jan, [facility] [place] [facility] [address] [id number], [place] [address] Jan, [facility] [place] [facility] [address] [id number], [place] [address] Jan, [facility] [place] [facility] [address] [id number] [place] [address] Jan, [facility] [address] [id number] [place] [address] Jan, [facility] [place] [facility] [address] [id number] [place] [address] Dec, [facility] [address] [id number] [place] [address] Nov, [facility] [address] [id number] [place] [address] Nov, [facility] [address] [id number] [place] [address] Nov, [facility] [address] [id number] [place] [address] Oct, [facility] [address] [id number] [place] [address] Oct, [facility] [address] [id number] [place] [address] August, [facility] [address] [id number] [place] [address] Apr, [facility] [address] [id number] [place] [address] Apr, [facility] [address] [id number] [place] [address] Feb, [facility] [address] [id number] [place] [address] Feb, [facility] [place] [facility] [address] [id number] [place] [address] Dec, [facility] [place] [facility] [address] [id number] [place] [address] Dec, [facility] [address] [id number] [place] [address] Oct, [facility] [address] [facility] [id number] [place] [address] Oct, [facility] [address] [facility] [id number] [place] [address] Oct, [facility] [address] [facility] [id number] [place] [address] Jul, IMMUNIZATIONS No Known Immunizations SOCIAL HISTORY Never Assessed REASON FOR VISIT EMR-[facility] [place] PLAN OF CARE VITAL SIGNS MEDICATIONS Unknown [...] illness , last one in [facility] 4 years ago
--- OUTSIDE RECORDS SUMMARY | 2018-09-02 13:09 | XMS REPORT ---
Author Author EDWINUMESH CASIANO Organization [facility] [address] Address [address] [place] [address] Care Team Providers Care Sql Bi Developer Name Role Phone UMESH PINEDA Unavailable PROBLEMS Type Condition ICD9-CM Code [id number] Code Onset Dates Condition Status SNOMED Code Problem OAB (overactive bladder) N32.81 Active 423589526 Problem Depression with anxiety F41.8 Active 481107015 Problem Other seasonal allergic rhinitis J30.2 Active 985411399 Problem Chronic obstructive pulmonary disease, unspecified COPD type J44.9 Active 01657916 Problem Tobacco abuse Z72.0 Active 025982694 Problem Morbid obesity due to excess calories E66.01 Active 954543226 Problem Dyslipidemia E78.5 Active 764126407 Problem Hypothyroidism (acquired) E03.9 Active 169117505 Problem Essential hypertension I10 Active 21260605 Problem Diabetic polyneuropathy associated with type 2 diabetes mellitus E11.42 Active 771484839 Problem Type 2 diabetes mellitus with diabetic neuropathic arthropathy, 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 Active 033417425 Problem Type 2 diabetes mellitus without complication, without long-term current use of insulin E11.9 Active 449615680 Problem Paranoid schizophrenia F20.0 Active 43518515 Problem Chronic pain syndrome G89.4 Active 831491346 Problem Migraine without aura and without status migrainosus, not intractable G43.009 Active 769604756 Problem Gastroesophageal reflux disease, esophagitis presence not specified K21.9 Active 717422699 Problem Seasonal allergic rhinitis due to pollen J30.1 Active 84857170 Problem COPD exacerbation J44.1 Active 762273604 Problem Seasonal allergic rhinitis due to other allergic trigger J30.89 Active 323206149 Problem Schizoaffective disorder, depressive type F25.1 Active 31559403 Problem History of lupus Z87.39 Active 948753809 Problem Gastroesophageal reflux disease without esophagitis K21.9 Active 109178063 Problem Menopausal syndrome (hot flashes) N95.1 Active 288395307 Problem Other allergic rhinitis J30.89 Active 192270043 Problem Primary insomnia F51.01 Active 2544901 Problem DM neuro manif type II E11.49 Active 45420098 ALLERGIES No Information ENCOUNTERS Encounter Location Date Diagnosis [facility] [id number] [place] [address] 09565- 0750 Mar, [facility] [id number] [place] [address] 12125- 6709 Mar, Primary insomnia F51.01 [facility] [id number] [place] [address] 60925- 0576 Mar, [facility] [id number] [place] [address] 84798- 7669 Feb, Primary insomnia F51.01 [facility] [id number] [place] [address] 94049- 2976 Feb, [facility] [id number] [place] [address] 80416- 5469 Jan, Schizoaffective disorder, depressive type F25.1 and BMI 45.0 -49.9, adult Z68.42 [facility] [id number] [place] [address] 16221- 3794 Jan, [facility] [id number] [place] [address] 07458- 7099 16 Jan, 2018 Type 2 diabetes mellitus with diabetic neuropathic arthropathy, 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 ; Menopausal syndrome (hot flashes) N95.1 and BMI 40.0-44.9, adult Z68.41 [facility] [id number] [place] [address] 39143- 1479 Jan, Paranoid schizophrenia F20.0 [facility] [id number] [place] [address] 85166- 1291 08 Jan, 2018 [facility] [id number] [place] [address] 90165- 6474 Jan, Schizoaffective disorder, depressive type F25.1 [facility] [id number] [place] [address] 95535- 0925 Jan, [place] [address] 58867- 2083 Jan, Chronic obstructive pulmonary disease, unspecified COPD type J44.9 ; BMI 45.0-49.9, adult Z68.42 ; Type 2 diabetes mellitus without complication, without long-term current use of insulin E11.9 ; Hypothyroidism ( acquired) E03.9 ; Encounter for immunization Z23 ; Gastroesophageal reflux disease without esophagitis K21.9 ; Primary insomnia F51.01 and Acute nasopharyngitis J00 [facility] [address] 55775- 3555 27 Dec, 2017 [place] [address] 76632- 3938 21 Dec, 2017 Schizoaffective disorder, depressive type F25.1 and BMI 45.0 -49.9, adult Z68.42 [place] [address] 58455- 9002 Dec, [facility] [address] 81224- 8135 18 Dec, 2017 [facility] [id number] [place] [address] 57376- 1436 Dec, Acute non-recurrent frontal sinusitis J01.10 [facility] [id number] [place] [address] 26533- 4329 18 Dec, 2017 Acute non-recurrent frontal sinusitis J01.10 ; Weakness of left leg R29.898 ; At high risk for falls Z91.81 and BMI 45.0-49.9, adult Z68.42 [facility] [id number] [place] [address] 25220- 9115 17 Dec, 2017 [place] [address] 58559- 9458 17 Dec, 2017 [facility] [address] [place] [address] 09614- 1861 Dec, Schizoaffective disorder, depressive type F25.1 [facility] [address] [place] [address] 03310 -1672 Dec, Acute nasopharyngitis J00 [facility] [id number] [place] [address] 91888- 7215 Dec, Schizoaffective disorder, depressive type F25.1 [facility] [id number] [place] [address] 55809- 0133 Dec, [facility] [id number] [place] [address] 12420- 2722 Nov, Schizoaffective disorder, depressive type F25.1 and BMI 45.0 -49.9, adult Z68.42 [facility] [id number] [place] [address] 83881- 4949 Nov, [facility] [id number] [place] [address] 60373- 9925 Nov, [facility] [id number] [place] [address] 83097- 0103 Nov, Schizoaffective disorder, depressive type F25.1 [facility] [id number] [place] [address] 41265- 0117 Nov, Well woman exam Z01.419 ; BMI 45.0-49.9, adult Z68.42 ; Screening breast examination Z12.31 and Dietary counseling and surveillance Z71.3 [facility] [id number] [place] [address] 72904- 8797 Nov, Paranoid schizophrenia F20.0 [facility] [id number] [place] [address] 71594- 0164 09 Nov, 2017 Gastroesophageal reflux disease, esophagitis presence not specified K21.9 [facility] [id number] [address] 7424 Oct, Paranoid schizophrenia F20.0 [facility] [id number] [place] [address] Oct Chronic pain syndrome G89.4 and Schizoaffective disorder, depressive type F25.1 [place] [address] [address]- 8164 Oct, Chronic pain syndrome G89.4 and Schizoaffective disorder, depressive type F25.1 [place] [address] [place] [address] 40448- 7047 Oct, Type 2 diabetes mellitus without complication, without long- term current use of insulin E11.9 [facility] [address] [place] [address] 34930- 8295 Oct, Essential hypertension I10 and DM neuro manif type II E11.49 [place] [address] [place] [address] 39076- 2634 Oct, [place] [address] [place] [address] 13700- 5326 Oct, Schizoaffective disorder, depressive type F25.1 and BMI 45.0 -49.9, adult Z68.42 [place] [address] [address]- 0585 Oct, [place] [address] [place] [address] 36608- 0207 Oct, Paranoid schizophrenia F20.0 [facility] [address] [place] [address] 17695- 8971 Oct, Type 2 diabetes mellitus with diabetic neuropathic arthropathy, 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 ; Essential hypertension I10 ; Hypothyroidism (acquired) E03.9 ; Chronic obstructive pulmonary disease, unspecified COPD type J44.9 and Diabetic polyneuropathy associated with type 2 diabetes mellitus E11.42 [place] [address] [place] [address] 54605- 3496 Sep, Paranoid schizophrenia F20.0 [facility] [address] [place] [address] 71445- 8605 Sep, Paranoid schizophrenia F20.0 and BMI 45.0-49.9, adult Z68.42 [facility] [id number] [place] [address] 49945- 9031 Sep, Schizoaffective disorder, depressive type F25.1 [facility] [id number] [place] [address] 24007- 8248 Sep, [facility] [id number] [place] [address] 16464- 7073 Sep, Paranoid schizophrenia F20.0 [facility] [id number] [place] [address] 45043- 8409 Sep, [facility] [id number] [place] [address] 60941- 3566 Sep, Hypothyroidism (acquired) E03.9 [facility] [id number] [place] [address] 75879- 9466 Sep, [facility] [id number] [place] [address] 00719- 5387 August, Schizoaffective disorder, depressive type F25.1 [facility] [id number] [place] [address] 67662- 4857 August, [facility] [id number] [place] [address] 24457- 4948 August, [facility] [id number] [place] [address] 27502- 6329 August, [facility] [id number] [place] [address] 88594- 2985 August, Paranoid schizophrenia F20.0 [facility] [id number] [place] [address] 88283- 2383 August, History of lupus Z87.39 and Chronic pain syndrome G89.4 [place] [address] 11743- 7586 August, [facility] [address] 74545 -3825 August, Seasonal allergic rhinitis, unspecified trigger J30.2 and BMI 45.0-49.9, adult Z68.42 [place] [address] 39633- 2823 Jul, Schizoaffective disorder, depressive type F25.1 [place] [address] 25559- 5848 Jul, [place] [address] 40150- 3578 Jul, Hypothyroidism (acquired) E03.9 [place] [address] 61568- 6970 Jul, Chronic obstructive pulmonary disease, unspecified COPD type J44.9 and Type 2 diabetes mellitus without complication, without long-term current use of insulin E11.9 [place] [address] 29715- 4336 Jul, Paranoid schizophrenia F20.0 [place] [address] 63967- 1415 Jun, Hypothyroidism (acquired) E03.9 and Seasonal allergic rhinitis due to pollen J30.1 [facility] [address] 03728 -5415 Jun, Shortness of breath at rest R06.02 ; COPD exacerbation J44.1 and BMI 45.0-49.9, adult Z68.42 [place] [address] 49464- 7785 Jun, [place] [address] 28681- 8742 Jun, Paranoid schizophrenia F20.0 ; Depression with anxiety F41.8 and BMI 45.0-49.9, adult Z68.42 [facility] [address] 23030- 1407 Jun, Schizoaffective disorder, depressive type F25.1 [facility] [address] [id number] Jun, Dental caries K02.9 [facility] [address] 36920- 4674 Jun, Paranoid schizophrenia F20.0 [address] 46741- 2013 May, Migraine without aura and without status migrainosus, not intractable G43.009 ; DM neuro manif type II E11.49 and Type 2 diabetes mellitus without complication, without long-term current use of insulin E11.9 [facility] [id number] [place] [address] 37375- 5254 May, Migraine without aura and without status migrainosus, not intractable G43.009 [place] [address] 46135- 2653 May, Depression with anxiety F41.8 [facility] [id number] [place] [address] [id number] May, [facility] [id number] [place] [address] 54107- 5148 May, [facility] [address] 54298- 6207 May, [place] [address] 10015- 8164 May, Hypothyroidism (acquired) E03.9 [facility] [address] 93577- 7447 May, Paranoid schizophrenia F20.0 [facility] [id number] [place] [address] 08063- 6296 08 May, 2017 Type 2 diabetes mellitus [...] N32.81 and Controlled substance agreement signed Z79.899 [place] [address] 30459- 6606 02 May, 2017 Controlled substance agreement signed Z79.899 [place] [address] 05353- 8028 Apr, [facility] [address] [id number] Apr, Dental examination Z01.20 [place] [id number] [place] [address] 08792- 9341 Apr, Paranoid schizophrenia F20.0 [id number] [place] [address] 96477- 5841 Apr, Hypertension, unspecified type I10 [place] [address] 21079- 3714 Apr, Paranoid schizophrenia F20.0 [place] [address] 65457- 9699 Apr, [facility] [id number] [place] [address] 60928- 2221 Apr, Tobacco abuse Z72.0 [place] [id number] [place] [address] 98507- 7055 Apr, [facility] [id number] [place] [address] 78746- 8130 Mar, [facility] [id number] [place] [address] 22967- 7085 Mar, Paranoid schizophrenia F20.0 and BMI 45.0-49.9, adult Z68.42 [facility] [id number] [place] [address] 40823- 7139 Mar, Schizoaffective disorder, depressive type F25.1 [facility] [facility] [id number] [place] [address] 84053- 1517 Mar, [facility] [id number] [place] [address] 53482- 0831 Mar, Hypothyroidism, unspecified type E03.9 [facility] [id number] [place] [address] 92802- 4644 Mar, Schizoaffective disorder, depressive type F25.1 [facility] [id number] [place] [address] 66634 -7696 Feb, Gastroenteritis K52.9 and BMI 45.0-49.9, adult Z68.42 [facility] [id number] [place] [address] 23802- 9549 Feb, [facility] [id number] [place] [address] 40092- 9251 Feb, [facility] [id number] [place] [address] 64120- 0389 Feb, [facility] [id number] [place] [address] 09269- 3460 Feb, [facility] [id number] [place] [address] 45636- 9910 Feb, Paranoid schizophrenia F20.0 [facility] [address] [place] [address]- 9585 Feb, Gastroesophageal reflux disease without esophagitis K21.9 ; Other seasonal allergic rhinitis J30.2 ; Other allergic rhinitis J30.89 ; Tobacco abuse Z72.0 and BMI 40.0-44.9, adult Z68.41 [place] [address] 54413- 1277 Feb, Onychomycosis B35.1 ; Callus of foot L84 and DM neuro manif type II E11.49 [place] [facility] [id number] [place] [address] 02477- 5362 Jan, Chronic allergic rhinitis J30.9 [place] [address] 18473- 5098 Jan, [place] [address] 90370- 7853 Jan, Schizoaffective disorder, depressive type F25.1 [facility] [facility] [id number] [place] [address] 56470- 1579 Jan, [facility] [address] 73202 -0689 Jan, Sore throat J02.9 and Seasonal allergic rhinitis due to other allergic trigger J30.89 [place] [id number] [place] [address] 40353- 6736 Jan, [place] [address] 32664- 3140 Jan, [facility] [address] 87380 -0876 Jan, Chronic allergic rhinitis J30.9 [facility] [facility] [id number] [place] [address] 92989- 3610 Dec, Paranoid schizophrenia F20.0 ; Primary insomnia F51.01 and Schizoaffective disorder, depressive type F25.1 [facility] [address] [place] [address]- 5673 Dec, Chronic pain syndrome G89.4 ; Cervicalgia of occipito- atlanto-axial region M54.2 ; Menopausal syndrome (hot flashes) N95.1 and Encounter for immunization Z23 [facility] [id number] [place] [address] 27518- 2451 14 Dec, 2016 [place] [address] 47512- 5955 Dec, [place] [address] 51872- 2321 08 Dec, 2016 Paranoid schizophrenia F20.0 [place] [address] 98136- 1380 Dec, Schizoaffective disorder, depressive type F25.1 [place] [address] 47872- 9240 Nov, Hypothyroidism, unspecified type E03.9 [facility] [id number] [place] [address] 74562 -3665 Nov, Acute seasonal allergic rhinitis due to other allergen J30.89 [facility] [id number] [place] [address] 87258- 4724 Nov, [place] [id number] [place] [address] 28213- 8482 Nov, Hypothyroidism, unspecified type E03.9 and Other elevated white blood cell (WBC) count D72.828 [place] [id number] [place] [address] 68766- 9855 Nov, Schizoaffective disorder, depressive type F25.1 [facility] [id number] [place] [address] 82018- 2188 Nov, Paranoid schizophrenia F20.0 [facility] [id number] [place] [address] 30307- 1093 Nov, Type 2 diabetes mellitus without complication, without long- term current use of insulin E11.9 ; Morbid obesity due to excess calories E66.01 and Chronic pain syndrome G89.4 [facility] [id number] [place] [address] 42000- 5288 Oct, Paranoid schizophrenia F20.0 [facility] [id number] [place] [address] 08583- 9542 Oct, [facility] [id number] [place] [address] 27801- 6498 Oct, Schizoaffective disorder, depressive type F25.1 [place] [address] 59961- 2007 Oct, Hypothyroidism, unspecified type E03.9 and Other elevated white blood cell (WBC) count D72.828 [id number] [place] [address] 28239- 4314 Oct, Morbid obesity due to excess calories E66.01 ; Chronic obstructive pulmonary disease, unspecified COPD type J44.9 ; History of lupus Z87.39 ; Hypothyroidism, unspecified type E03.9 ; Gastroesophageal reflux disease without esophagitis K21.9 ; Primary insomnia F51.01 and Chronic pain syndrome G89.4 [place] [address] [place] [address] 19721- 8512 Sep, [place] [id number] [place] [address] 36938- 4466 Sep, [facility] [id number] [place] [address] 32139- 0610 Sep, [place] [id number] [place] [address] 24663- 1912 Sep, Paranoid schizophrenia F20.0 [facility] [id number] [place] [address] 19263- 6983 Sep, [place] [id number] [place] [address] 62750- 4034 Sep, Paranoid schizophrenia F20.0 [facility] [address] [address]- 6202 Sep, [facility] [id number] [place] [address] 89396- 2294 August, Paranoid schizophrenia F20.0 [facility] [address] [place] [address] 13624- 5069 Jul, [facility] [id number] [place] [address] 55231- 5801 Jul, Type 2 diabetes mellitus without complication, without long- term current use of insulin E11.9 ; Morbid obesity due to excess calories E66.01 ; Depression with anxiety F41.8 ; Hypothyroidism, unspecified type E03.9 ; Seasonal allergic rhinitis due to other allergic trigger J30.89 ; Pain, dental K08.89 and Gastroesophageal reflux disease without esophagitis K21.9 [facility] [address] [place] [address] [id number] Jul, Dental examination Z01.20 [place] [id number] [place] [address] 53654- 2013 07 Jul, 2016 Paranoid schizophrenia F20.0 [place] [address] [place] [address] 70947- 3363 13 Jun, 2016 Paranoid schizophrenia F20.0 and Depression with anxiety F41.8 [place] [address] [place] [address] 19631- 4685 Jun, Paranoid schizophrenia F20.0 and Depression with anxiety F41.8 [place] [address] [address]- 0498 Jun, [place] [id number] [place] [address] 80437- 6927 Jun, [facility] [address] [address] -1890 Jun, Seasonal allergic rhinitis due to other allergic trigger J30.89 [facility] [address] [id number] [place] [phone] 25 May, 2016 Sore throat J02.9 ; Other viral agents as the cause of diseases classified elsewhere B97.89 and Acute upper respiratory infection, unspecified J06.9 [place] [address] [place] [place] [id number] [place] [phone] May, 2016 Paranoid schizophrenia F20.0 and Depression with anxiety F41.8 [place] [address] [address] Apr, Other seasonal allergic rhinitis J30.2 [place] [place] [address] [address]- [address] Apr, Paranoid schizophrenia F20.0 and Depression with anxiety F41.8 [facility] [place] [address] [address] -3299 Apr, Bronchitis J40 and Sore throat J02.9 [place] [address] [place] [id number] [place] [address] 97844- 4659 Apr, Type 2 diabetes mellitus without complication, without long- term current use of insulin E11.9 [facility] [place] [id number] [place] [id number] [place] [address] 61613 -3970 Apr, Bronchitis J40 [place] [address] [place] [id number] [place] [address] 50922- 5519 Apr, [place] [address] [place] [id number] [place] [address] 13594- 8902 Apr, [address] [address]- 4954 Mar, Type 2 diabetes mellitus without complication, [...] Other seasonal allergic rhinitis J30.2 [place] [address] [place] [id number] [place] [address] 99344- 5315 Mar, Paranoid schizophrenia F20.0 and Depression with anxiety F41.8 [place] [address] 21607- 7630 Feb, [place] [address] 11709- 3213 Feb, [place] [address] 12947- 8566 Feb, [place] [address] 36984- 1305 Feb, [place] [address] 94251- 4708 Feb, Type 2 diabetes mellitus without complication, without long- term current use of insulin E11.9 ; ARIAS on CPAP G47.33 and Preoperative evaluation to rule out surgical contraindication Z01.818 [place] [address] [place] [id number] [place] [address] 97254- 4901 Feb, Paranoid schizophrenia F20.0 and Depression with anxiety F41.8 [place] [address] [place] [id number] [place] [address] 68173- 2718 Jan, [place] [address] [place] [id number] [place] [address] 32532- 4130 Jan, Paranoid schizophrenia F20.0 and Depression with anxiety F41.8 [place] [address] 05944- 6105 Jan, [place] [address] 76606- 1101 Jan, Muscle strain T14.8 [place] [address] [place] [address]- 7186 Jan, Paranoid schizophrenia F20.0 [facility] [address] [place] [id number] [place] [address] 69290- 3251 Jan, [facility] [address] [place] [id number] [place] [address] 60823- 5906 Jan, Paranoid schizophrenia F20.0 and Depression with anxiety F41.8 [facility] [address] [place] [id number] [place] [address] 21666- 7636 Jan, [facility] [address] [place] [id number] [place] [address] 53097- 7681 Jan, [facility] [address] [place] [id number] [place] [address] 76205- 4940 28 Dec, 2015 [facility] [address] [place] [id number] [place] [address] 48114- 9619 23 Dec, 2015 Paranoid schizophrenia F20.0 [facility] [address] [place] [id number] [place] [address] 83807- 8585 16 Dec, 2015 Paranoid schizophrenia F20.0 and Depression with anxiety F41.8 [facility] [address] [place] [id number] [place] [address] 97674- 3042 Nov, [facility] [address] [place] [id number] [place] [address] 86463- 3367 Nov, Paranoid schizophrenia F20.0 [facility] [address] [place] [id number] [place] [address] 90020- 0949 Nov, Paranoid schizophrenia F20.0 and Depression with anxiety F41.8 [facility] [id number] [place] [address] 91073- 9134 05 Nov, 2015 Type 2 diabetes mellitus without complication, without long- term current use of insulin E11.9 ; Paranoid schizophrenia F20.0 ; Chronic obstructive pulmonary disease, unspecified COPD type J44.9 ; Morbid obesity due to excess calories E66.01 and Parkinsonian tremor G20 [facility] [address] [place] [id number] [place] [address] 42500- 5695 Nov, [place] [address] [place] [id number] [place] [address] 03211- 2226 Oct, Paranoid schizophrenia F20.0 [place] [address] [place] [id number] [place] [address] 97405- 3372 Oct, Paranoid schizophrenia F20.0 [place] [address] [place] [id number] [place] [address] 10462- 0540 Oct, Paranoid schizophrenia F20.0 and Depression with anxiety F41.8 [place] [address] 59799- 4240 Oct, [place] [address] [place] [id number] [place] [address] 54031- 3753 Oct, Paranoid schizophrenia F20.0 and Depression with anxiety F41.8 [place] [address] [place] [id number] [place] [address] 24726- 0275 Oct, Nasal sore J34.89 [place] [address] [place] [id number] [place] [address] 26666- 1119 Oct, Type 2 diabetes mellitus without complication, without long- term current use of insulin E11.9 ; Depression with anxiety F41.8 ; Hypothyroidism, unspecified type E03.9 and History of lupus Z87.39 [place] [address] [place] [id number] [place] [address] 37462- 1060 Oct, [place] [address] [place] [id number] [place] [address] 22387- 8749 Oct, Type 2 diabetes mellitus without complication, [...] edema R60.9 and History of lupus Z87.39 [facility] [address] [place] [id number] [place] [address] 85384- 7703 Feb, [facility] [address] [place] [id number] [place] [address] 74744- 5810 Jan, [facility] [address] [place] [id number] [place] [address] 49600- 4816 Jan, [facility] [address] [place] [id number] [place] [address] 46303- 0581 Jan, [facility] [address] [place] [id number] [place] [address] 08556- 7096 Dec, [facility] [address] [place] [id number] [place] [address] 25298- 1412 Nov, [facility] [address] [place] [id number] [place] [address] 68435- 4398 Nov, [facility] [address] [place] [id number] [place] [address] 89116- 4917 Oct, [facility] [address] [place] [id number] [place] [address] 13824- 1948 Oct, [facility] [address] [place] [id number] [place] [address] 22360- 1284 Oct, [facility] [address] [place] [id number] [place] [address] 40029- 8869 Sep, Allergic rhinitis 477.9 [facility] [address] [place] [id number] [place] [address] 54608- 5220 11 Sep, 2014 Rhinitis, allergic 477.9 [facility] [address] [place] [id number] [place] [address] 51961- 7642 10 Sep, 2014 Rhinitis, allergic 477.9 [facility] [address] [place] [id number] [place] [address] 11818- 5358 Sep, [facility] [place] [facility] [address] [id number] [place] [address]- 9743 August, [facility] [place] [facility] [address] [id number] [place] [address]- 4378 August, [facility] [place] [facility] [address] [id number] [place] [address]- 8410 August, [facility] [place] [facility] [address] [id number] [place] [address]- 1086 Jul, [facility] [place] [facility] [address] [id number] [place] [address]- 7982 Jul, [facility] [place] [facility] [address] [id number] [place] [address]- 2382 Jul, [facility] [place] [facility] [address] [id number] [place] [address]- 4620 Jun, [facility] [place] [facility] [address] [id number] [place] [address]- 1590 Jun, [facility] [place] [facility] [address] [id number] [place] [address]- 0746 Jun, [facility] [place] [facility] [address] [id number] [place] [address]- 3362 Jun, [facility] [place] [facility] [address] [id number] [place] [address]- 9328 Jun, [facility] [place] [facility] [address] [id number] [place] [address]- 8628 Jun, [facility] [place] [facility] [address] [id number] [place] [address]- 0298 Jun, [facility] [place] [facility] [address] [id number] [place] [address]- 6841 Jun, [facility] [place] [facility] [address] [id number] [place] [address]- 7621 May, [facility] [place] [facility] [address] [id number] [place] [address]- 5920 17 May, 2014 [facility] [address] [id number] [place] [address]- 0216 May, 2014 [facility] [place] [facility] [address] [id number] [place] [address]- 4596 May, 2014 [facility] [address] [id number] [place] [address]- 3260 Apr, [facility] [place] [facility] [address] [id number] [place] 4826 Mar, [facility] [place] [facility] [address] [id number] [place] [address]- 2081 Mar, [facility] [place] [facility] [address] [id number] [place] [address]- 1233 Mar, [facility] [place] [facility] [address] [id number] [place] [address]- 2175 Mar, [facility] [address] [id number] [place] [address]- 0532 Mar, [facility] [place] [facility] [address] [id number] [place] [address]- 0390 Mar, [facility] [place] [facility] [address] [id number] [place] 1360 Mar, [facility] [place] [facility] [address] [id number] [place] [address]- 5937 Mar, [facility] [place] [facility] [address] [id number] [place] [address]- 8137 Mar, [facility] [place] [facility] [address] [id number] [place] [address]- 9181 Feb, [facility] [place] [facility] [address] [id number] [place] [address]- 4736 Feb, [facility] [place] [facility] [address] [id number] [place] [address]- 3208 Feb, [facility] [place] [facility] [address] [id number] [place] [address]- 0649 17 Feb, 2014 [facility] [place] [facility] [address] [id number] [place] [address]- 7821 14 Feb, 2014 [facility] [place] [facility] [address] [id number] [place] [address]- 4741 14 Feb, 2014 [facility] [place] [facility] [address] [id number] [place] [address]- 4822 12 Feb, 2014 [facility] [place] [facility] [address] [id number] [place] [address]- 8687 12 Feb, 2014 [facility] [place] [facility] [address] [id number] [place] [address]- 0187 23 Jan, 2014 [facility] [place] [facility] [address] [id number] [place] [address]- 5451 23 Jan, 2014 [facility] [place] [facility] [address] [id number] [place] [address]- 3128 16 Jan, 2014 [facility] [place] [facility] [address] [id number] [place] [address]- 2727 16 Jan, 2014 [facility] [place] [facility] [address] [id number] [place] [address]- 7712 15 Jan, 2014 [facility] [place] [facility] [address] [id number] [place] [address]- 3890 15 Jan, 2014 [facility] [place] [facility] [address] [id number] [place] [address]- 2107 14 Jan, 2014 [facility] [place] [facility] [address] [id number] [place] [address]- 3509 14 Jan, 2014 [facility] [place] [facility] [address] [id number] [place] [address]- 3941 14 Jan, 2014 [facility] [place] [facility] [address] [id number] [place] [address]- 9041 14 Jan, 2014 [facility] [place] [facility] [address] [id number] [place] [address]- 5547 18 Dec, 2013 [facility] [place] [facility] [address] [id number] [place] [address]- 3036 18 Dec, 2013 [facility] [place] [facility] [address] [id number] [place] [address]- 8721 Dec, [facility] [place] [facility] [address] [id number] [place] [address]- 5858 Dec, [facility] [place] [facility] [address] [id number] [place] [address]- 2937 Nov, [facility] [place] [facility] [address] [id number] [place] [address]- 2088 Nov, [facility] [place] [facility] [address] [id number] [place] [address]- 5569 Nov, [facility] [place] [facility] [address] [id number] [place] [address]- 5412 Nov, [facility] [place] [facility] [address] [id number] [place] [address]- 3534 Nov, [facility] [place] [facility] [address] [id number] [place] [address]- 3304 Oct, [facility] [place] [facility] [address] [id number] [place] [address]- 2358 Oct, [facility] [place] [facility] [address] [id number] [place] [address]- 4870 Oct, [facility] [place] [facility] [address] [id number] [place] [address]- 0125 Oct, [facility] [place] [facility] [address] [id number] [place] [address]- 3448 Sep, [facility] [place] [facility] [address] [id number] [place] [address]- 6615 Sep, [facility] [place] [facility] [address] [id number] [place] [address]- 4763 Sep, [facility] [place] [facility] [address] [id number] [place] [address]- 7759 Sep, [facility] [place] [facility] [address] [id number] [place] [address]- 5879 Sep, [facility] [place] [facility] [address] [id number] [place] [address]- 3980 Sep, [facility] [place] [facility] [address] [id number] [place] [address]- 7787 Sep, [facility] [place] [facility] [address] [id number] [place] [address]- 8225 Sep, [facility] [place] [facility] [address] [id number] [place] [address]- 6031 August, [facility] [place] [facility] [address] [id number] [place] [address]- 1248 August, [facility] [place] [facility] [address] [id number] [place] [address]- 6656 August, [facility] [place] [facility] [address] [id number] [place] [address]- 6976 August, [facility] [place] [facility] [address] [id number] [place] [address]- 2453 August, [facility] [place] [facility] [address] [id number] [place] [address]- 3537 August, [facility] [place] [facility] [address] [id number] [place] [address]- 0688 August, [facility] [place] [facility] [address] [id number] [place] [address]- 0318 Jul, [facility] [place] [facility] [address] [id number] [place] [address]- 7842 Jul, [facility] [place] [facility] [address] [id number] [place] [address]- 6091 Jul, [facility] [place] [facility] [address] [id number] [place] [address]- 3483 Jul, [facility] [place] [facility] [address] [id number] [place] [address]- 2821 Jul, [facility] [place] [facility] [address] [id number] [place] [address]- 6084 Jul, [facility] [place] [facility] [address] [id number] [place] [address]- 1669 Jul, [facility] [place] [facility] [address] [id number] [place] [address]- 7670 Jul, [facility] [place] [facility] [address] [id number] [place] [address]- 4033 Jul, [facility] [place] [facility] [address] [id number] [place] [address]- 5598 Jul, [facility] [place] [facility] [address] [id number] [place] [address]- 4793 Jul, [facility] [place] [facility] [address] [id number] [place] [address]- 2261 Jul, [facility] [place] [facility] [address] [id number] [place] [address]- 6082 Jun, [facility] [place] [facility] [address] [id number] [place] [address]- 7863 Jun, [facility] [place] [facility] [address] [id number] [place] [address]- 6844 Jun, [facility] [place] [facility] [address] [id number] [place] [address]- 4519 Jun, [facility] [place] [facility] [address] [id number] [place] [address]- 6470 Jun, [facility] [place] [facility] [address] [id number] [place] [address]- 1301 May, [facility] [place] [facility] [address] [id number] [place] [address]- 2419 May, [facility] [place] [facility] [address] [id number] [place] [address]- 9872 May, 2013 [facility] [address] [id number] [place] [address]- 7496 May, 2013 [facility] [place] [facility] [address] [id number] [place] 0826 May, 2013 [facility] [place] [facility] [address] [id number] [place] [address]- 5046 May, 2013 [facility] [place] [facility] [address] [id number] [place] [address] 2549 May, [facility] [place] [facility] [address] [id number] [place] [address]- 6340 May, [facility] [address] [facility] [id number] [place] 2876 Mar, [facility] [place] [facility] [address] [facility] [id number] [place] [address]- 1267 Mar, [facility] [address] [facility] [id number] [place] [address]- 0391 Mar, [facility] [place] [facility] [address] [facility] [id number] [place] [address]- 3636 Mar, [facility] [place] [facility] [address] [facility] [id number] [place] [address]- 0577 Mar, [facility] [place] [facility] [address] [facility] [id number] [place] [address]- 2544 Mar, [facility] [place] [facility] [address] [id number] [place] [address] 2540 Feb, [facility] [place] [facility] [address] [facility] [id number] [place] [address] 2546 Feb, [facility] [place] [facility] [address] [facility] [id number] [place] [address]- 2543 Jan, [facility] [place] [facility] [address] [id number] [place] [address]- 3167 Jan, [facility] [place] [facility] [address] [id number] [place] [address]- 2153 Jan, [facility] [place] [facility] [address] [id number] [place] [address]- 1371 Jan, [facility] [place] [facility] [address] [id number] [place] [address]- 0750 Jan, [facility] [place] [facility] [address] [id number] [place] [address]- 9748 Jan, [facility] [place] [facility] [address] [id number] [place] [address]- 5394 Jan, [facility] [place] [facility] [address] [id number] [place] [address]- 2221 Jan, [facility] [place] [facility] [address] [id number] [place] [address]- 8849 Jan, [facility] [place] [facility] [address] [id number] [place] [address]- 5243 Jan, [facility] [place] [facility] [address] [id number] [place] [address]- 0562 Dec, [facility] [place] [facility] [address] [id number] [place] [address]- 4056 Nov, [facility] [place] [facility] [address] [id number] [place] [address]- 8705 Nov, [facility] [place] [facility] [address] [id number] [place] [address]- 2544 Nov, [facility] [place] [facility] [address] [id number] [place] [address]- 2548 Oct, [facility] [place] [facility] [address] [id number] [place] [address]- 9187 Oct, [facility] [place] [facility] [address] [id number] [place] [address]- 2545 August, [facility] [place] [facility] [address] [id number] 9582 Apr, [facility] [id number] [place] [address]- 4048 Apr, [facility] [id number] [place] [address]- 7816 Feb, [facility] [id number] [address] Feb, [facility] [id number] [address] Dec, [facility] [id number] [address] Dec, [facility] [id number] [address] Oct, [facility] [id number] [address] Oct, [facility] [address] [id number] [address] Oct, [facility] [address] [id number] [address] Jul, IMMUNIZATIONS Vaccine Route Administration Date Status INVEGA (PT'S OWN) Unknown Apr 04, 2018 Administered SOCIAL HISTORY Never Assessed REASON FOR VISIT Invega- [facility] PLAN OF CARE VITAL SIGNS MEDICATIONS Unknown Medications RESULTS No Results PROCEDURES Procedure Date Ordered Result Body Site INVEGA (PT'S OWN) Apr 04, 2018 THER/PROPH/DIAG INJ, SC/IM Apr 04, 2018 INSTRUCTIONS MEDICATIONS ADMINISTERED No Known Medications MEDICAL [...] for psychosis/mental illness , last one in [place] at [facility] 4 years ago
--- OUTSIDE RECORDS SUMMARY | 2018-09-02 13:10 | XMS REPORT ---
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 Name Role Phone MARLENE MONETTA Unavailable PROBLEMS Type Condition ICD9-CM Code SVR28-JU Code Onset Dates Condition Status SNOMED Code Problem OAB (overactive bladder) N32.81 Active 493503734 Problem Depression with anxiety F41.8 Active 114157274 Problem Other seasonal allergic rhinitis J30.2 Active 989210928 Problem Chronic obstructive pulmonary disease, unspecified COPD type J44.9 Active 08097965 Problem Tobacco abuse Z72.0 Active 603613678 Problem Morbid obesity due to excess calories E66.01 Active 809981386 Problem Dyslipidemia E78.5 Active 549961354 Problem Hypothyroidism (acquired) E03.9 Active 111551067 Problem Essential hypertension I10 Active 37996009 Problem Diabetic polyneuropathy associated with type 2 diabetes mellitus E11.42 Active 423944500 Problem Type 2 diabetes mellitus with diabetic neuropathic arthropathy, 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 Active 380455585 Problem Type 2 diabetes mellitus without complication, without long-term current use of insulin E11.9 Active 240226198 Problem Paranoid schizophrenia F20.0 Active 60289705 Problem Chronic pain syndrome G89.4 Active 991258632 Problem Migraine without aura and without status migrainosus, not intractable G43.009 Active 172858791 Problem Gastroesophageal reflux disease, esophagitis presence not specified K21.9 Active 135853766 Problem Seasonal allergic rhinitis due to pollen J30.1 Active 05982762 Problem COPD exacerbation J44.1 Active 579528519 Problem Seasonal allergic rhinitis due to other allergic trigger J30.89 Active 809967135 Problem Schizoaffective disorder, depressive type F25.1 Active 59768716 Problem History of lupus Z87.39 Active 345510023 Problem Gastroesophageal reflux disease without esophagitis K21.9 Active 651726000 Problem Menopausal syndrome (hot flashes) N95.1 Active 577998348 Problem Other allergic rhinitis J30.89 Active 290575703 Problem Primary insomnia F51.01 Active 6293792 Problem DM neuro manif type II E11.49 Active 56870131 ALLERGIES No Information ENCOUNTERS Encounter Location Date Diagnosis [facility] [id number] [place] [address] 92366- 8056 Mar, [facility] [address] 44497- 4432 Mar, Primary insomnia F51.01 [facility] [address] 08438- 2392 Mar, [facility] [address] 37522- 5995 Feb, Primary insomnia F51.01 [facility] [address] 02187- 3215 Feb, [facility] [address] 71115- 8686 24 Jan, 2018 Schizoaffective disorder, depressive type F25.1 and BMI 45.0 -49.9, adult Z68.42 [place] [address] 8[address]20- 1191 Jan, [place] [address] 56283- 1113 16 Jan, 2018 Type 2 diabetes mellitus with diabetic neuropathic arthropathy, 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 ; Menopausal syndrome (hot flashes) N95.1 and BMI 40.0-44.9, adult Z68.41 [place] [address] 56908- 5295 Jan, Paranoid schizophrenia F20.0 [facility] [id number] [place] [address] 21098- 4892 08 Jan, 2018 [place] [address] 70533- 9438 Jan, Schizoaffective disorder, depressive type F25.1 [facility] [id number] [place] [address] 55728- 2709 Jan, [place] [address] 71322- 5488 Jan, Chronic obstructive pulmonary disease, unspecified COPD type J44.9 ; BMI 45.0-49.9, adult Z68.42 ; Type 2 diabetes mellitus without complication, without long-term current use of insulin E11.9 ; Hypothyroidism ( acquired) E03.9 ; Encounter for immunization Z23 ; Gastroesophageal reflux disease without esophagitis K21.9 ; Primary insomnia F51.01 and Acute nasopharyngitis J00 [place] [address] 58460- 4079 27 Dec, 2017 [place] [address] 69673- 8026 21 Dec, 2017 Schizoaffective disorder, depressive type F25.1 and BMI 45.0 -49.9, adult Z68.42 [facility] [id number] [place] [address] 64235- 1276 Dec, [place] [address] 35752- 9870 18 Dec, 2017 [place] [facility] [id number] [place] [address] 27274- 0761 Dec, Acute non-recurrent frontal sinusitis J01.10 [place] [address] 13707- 3413 18 Dec, 2017 Acute non-recurrent frontal sinusitis J01.10 ; Weakness of left leg R29.898 ; At high risk for falls Z91.81 and BMI 45.0-49.9, adult Z68.42 [facility] [id number] [place] [address] 59610- 1702 17 Dec, 2017 [place] [address] 67360- 7334 Dec, [facility] [address] [address] 9592 Dec, Schizoaffective disorder, depressive type F25.1 [facility] [address] [place] [address] 66425 -4079 Dec, Acute nasopharyngitis J00 [facility] [id number] [place] [address] 25748- 2131 Dec, Schizoaffective disorder, depressive type F25.1 [facility] [id number] [place] [address] 14890- 6516 Dec, [facility] [id number] [place] [address] 34301- 7029 Nov, Schizoaffective disorder, depressive type F25.1 and BMI 45.0 -49.9, adult Z68.42 [facility] [id number] [place] [address] 65143- 0602 Nov, [facility] [id number] [place] [address] 81493- 7901 Nov, [facility] [id number] [place] [address] 10573- 2061 Nov, Schizoaffective disorder, depressive type F25.1 [facility] [id number] [place] [address] 69610- 5542 Nov, Well woman exam Z01.419 ; BMI 45.0-49.9, adult Z68.42 ; Screening breast examination Z12.31 and Dietary counseling and surveillance Z71.3 [facility] [id number] [place] [address] 42134- 2530 Nov, Paranoid schizophrenia F20.0 [facility] [id number] [place] [address] 34822- 4663 Nov, Gastroesophageal reflux disease, esophagitis presence not specified K21.9 [facility] [address] [place] [address]- 7677 Oct, Paranoid schizophrenia F20.0 [facility] [id number] [address] Oct Chronic pain syndrome G89.4 and Schizoaffective disorder, depressive type F25.1 [place] [address] [address]- 9268 Oct, Chronic pain syndrome G89.4 and Schizoaffective disorder, depressive type F25.1 [place] [address] [place] [address] 66086- 3055 Oct, Type 2 diabetes mellitus without complication, without long- term current use of insulin E11.9 [place] [address] [place] [address] 88008- 6718 Oct, Essential hypertension I10 and DM neuro manif type II E11.49 [place] [id number] [place] [address] 33143- 3010 Oct, [place] [id number] [place] [address] 29115- 6972 Oct, Schizoaffective disorder, depressive type F25.1 and BMI 45.0 -49.9, adult Z68.42 [place] [address] [address]- 5395 Oct, [place] [address] [place] [address] 19044- 7259 Oct, Paranoid schizophrenia F20.0 [place] [address] [place] [address] 90743- 4367 Oct, Type 2 diabetes mellitus with diabetic neuropathic arthropathy, 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 ; Essential hypertension I10 ; Hypothyroidism (acquired) E03.9 ; Chronic obstructive pulmonary disease, unspecified COPD type J44.9 and Diabetic polyneuropathy associated with type 2 diabetes mellitus E11.42 [place] [address] [place] [address] 21125- 9979 Sep, Paranoid schizophrenia F20.0 [facility] [id number] [place] [address] 52593- 4527 Sep, Paranoid schizophrenia F20.0 and BMI 45.0-49.9, adult Z68.42 [facility] [id number] [place] [address] 02413- 8282 Sep, Schizoaffective disorder, depressive type F25.1 [facility] [id number] [place] [address] 46696- 5069 Sep, [facility] [id number] [place] [address] 72408- 0171 Sep, Paranoid schizophrenia F20.0 [facility] [id number] [place] [address] 39012- 8896 Sep, [facility] [id number] [place] [address] 40929- 8867 Sep, Hypothyroidism (acquired) E03.9 [facility] [id number] [place] [address] 48317- 1465 Sep, [facility] [id number] [place] [address] 99070- 4900 August, Schizoaffective disorder, depressive type F25.1 [facility] [id number] [place] [address] 56998- 0412 August, [facility] [id number] [place] [address] 31315- 1315 August, [facility] [id number] [place] [address] 05251- 1468 August, [facility] [id number] [place] [address] 41849- 3213 August, Paranoid schizophrenia F20.0 [facility] [id number] [place] [address] 56122- 2028 August, History of lupus Z87.39 and Chronic pain syndrome G89.4 [place] [address] 09253- 6459 August, [facility] [address] 27778 -1731 August, Seasonal allergic rhinitis, unspecified trigger J30.2 and BMI 45.0-49.9, adult Z68.42 [place] [address] 67135- 1245 Jul, Schizoaffective disorder, depressive type F25.1 [place] [address] 10402- 4307 Jul, [place] [address] 58617- 1363 Jul, Hypothyroidism (acquired) E03.[address] 53312- 5505 Jul, Chronic obstructive pulmonary disease, unspecified COPD type J44.9 and Type 2 diabetes mellitus without complication, without long-term current use of insulin E11.9 [place] [address] 37755- 3135 Jul, Paranoid schizophrenia F20.0 [place] [address] 94615- 0183 Jun, Hypothyroidism (acquired) E03.9 and Seasonal allergic rhinitis due to pollen J30.1 [facility] [address] 98047 -3874 Jun, Shortness of breath at rest R06.02 ; COPD exacerbation J44.1 and BMI 45.0-49.9, adult Z68.42 [place] [address] 56372- 2519 Jun, [place] [address] 48900- 8502 Jun, Paranoid schizophrenia F20.0 ; Depression with anxiety F41.8 and BMI 45.0-49.9, adult Z68.42 [facility] [id number]- 0119 Jun, Schizoaffective disorder, depressive type F25.1 [facility] [address] [id number] Jun, Dental caries K02.9 [place] [address] 37977- 3483 Jun, Paranoid schizophrenia F20.0 [place] [address] 56624- 3583 May, Migraine without aura and without status migrainosus, not intractable G43.009 ; DM neuro manif type II E11.49 and Type 2 diabetes mellitus without complication, without long-term current use of insulin E11.9 [facility] [address] 35830- 2523 May, Migraine without aura and without status migrainosus, not intractable G43.009 [place] [address] 54063- 2180 May, Depression with anxiety F41.8 [facility] [id number] [place] [address] [id number] May, [facility] [address] 04073- 0535 May, [facility] [address] 18157- 6139 May, [place] [id number]- 2880 May, Hypothyroidism (acquired) E03.9 [facility] [address] 91881- 2438 May, Paranoid schizophrenia F20.0 [facility] [id number] [place] [address] 45398- 1203 08 May, 2017 Type 2 diabetes mellitus [...] N32.81 and Controlled substance agreement signed Z79.899 [place] [address] 50809- 3228 02 May, 2017 Controlled substance agreement signed Z79.899 [place] [address] 66877- 4005 Apr, [facility] [address] [id number] Apr, Dental examination Z01.20 [place] [address] 61312- 1746 Apr, Paranoid schizophrenia F20.0 [place] [address] 62047- 6542 Apr, Hypertension, unspecified type I10 [facility] [address] 65265- 0520 Apr, Paranoid schizophrenia F20.0 [place] [address] 89186- 9456 05 Apr, 2017 [place] [address] 93583- 1581 Apr, Tobacco abuse Z72.0 [place] [address] [place] [address]- 7698 Apr, [facility] [id number] [place] [address] 21394- 1012 Mar, [facility] [id number] [place] [address] 15029- 2337 Mar, Paranoid schizophrenia F20.0 and BMI 45.0-49.9, adult Z68.42 [facility] [address] 45741- 0896 Mar, Schizoaffective disorder, depressive type F25.1 [facility] [address] 97046- 6102 Mar, [facility] [address] 58963- 0945 Mar, Schizoaffective disorder, depressive type F25.1 [facility] [id number] [place] [address] 60139- 7363 Mar, Hypothyroidism, unspecified type E03.9 [facility] [id number] [place] [address] 84566 -4059 Feb, Gastroenteritis K52.9 and BMI 45.0-49.9, adult Z68.42 [facility] [id number] [place] [address] 73571- 0437 Feb, [facility] [id number] [place] [address] 64980- 5588 Feb, [facility] [id number] [place] [address] 39584- 1387 Feb, [facility] [address] 62017- 1080 Feb, [facility] [id number] [place] [address] 12897- 8989 Feb, Paranoid schizophrenia F20.0 [facility] [address] 28790- 4985 Feb, Gastroesophageal reflux disease without esophagitis K21.9 ; Other seasonal allergic rhinitis J30.2 ; Other allergic rhinitis J30.89 ; Tobacco abuse Z72.0 and BMI 40.0-44.9, adult Z68.41 [place] [address] 98337- 1360 Feb, Onychomycosis B35.1 ; Callus of foot L84 and DM neuro manif type II E11.49 [place] [address] 06257- 9453 Jan, Chronic allergic rhinitis J30.9 [place] [address] 86467- 7028 Jan, [place] [address] 89720- 5734 Jan, Schizoaffective disorder, depressive type F25.1 [place] [address] 76359- 0274 Jan, [facility] [address] 26151 -4483 Jan, Sore throat J02.9 and Seasonal allergic rhinitis due to other allergic trigger J30.89 [place] [address] 10183- 2979 Jan, [place] [address] 48539- 4785 Jan, [facility] [address] 22102 -0094 Jan, Chronic allergic rhinitis J30.9 [place] [address] 99405- 7343 Dec, Paranoid schizophrenia F20.0 ; Primary insomnia F51.01 and Schizoaffective disorder, depressive type F25.1 [place] [address] [place] [address]- 4278 Dec, Chronic pain syndrome G89.4 ; Cervicalgia of occipito- atlanto-axial region M54.2 ; Menopausal syndrome (hot flashes) N95.1 and Encounter for immunization Z23 [facility] [id number] [place] [address] 76182- 7571 14 Dec, 2016 [facility] [id number] [place] [address] 24789- 2448 Dec, [place] [id number] [place] [address] 29161- 4239 08 Dec, 2016 Paranoid schizophrenia F20.0 [place] [id number] [place] [address] 36012- 9474 Dec, Schizoaffective disorder, depressive type F25.1 [facility] [id number] [place] [address] 34884- 8027 Nov, Hypothyroidism, unspecified type E03.9 [facility] [id number] [place] [address] 07343 -9399 Nov, Acute seasonal allergic rhinitis due to other allergen J30.89 [place] [id number] [place] [address] 35699- 3592 Nov, [facility] [id number] [place] [address] 93344- 2586 Nov, Hypothyroidism, unspecified type E03.9 and Other elevated white blood cell (WBC) count D72.828 [place] [id number] [place] [address] 09329- 5462 Nov, Schizoaffective disorder, depressive type F25.1 [place] [id number] [place] [address] 47715- 6572 Nov, Paranoid schizophrenia F20.0 [facility] [id number] [place] [address] 82458- 5808 Nov, Type 2 diabetes mellitus without complication, without long- term current use of insulin E11.9 ; Morbid obesity due to excess calories E66.01 and Chronic pain syndrome G89.4 [place] [id number] [place] [address] 75167- 7378 Oct, Paranoid schizophrenia F20.0 [place] [id number] [place] [address] 97000- 4496 Oct, [place] [id number] [place] [address] 91615- 6995 Oct, Schizoaffective disorder, depressive type F25.1 [place] [id number] [place] [address] 28714- 3755 Oct, Hypothyroidism, unspecified type E03.9 and Other elevated white blood cell (WBC) count D72.828 [place] [id number] [place] [address] 97275- 6246 Oct, Morbid obesity due to excess calories E66.01 ; Chronic obstructive pulmonary disease, unspecified COPD type J44.9 ; History of lupus Z87.39 ; Hypothyroidism, unspecified type E03.9 ; Gastroesophageal reflux disease without esophagitis K21.9 ; Primary insomnia F51.01 and Chronic pain syndrome G89.4 [place] [address] [place] [address] 75443- 4782 Sep, [place] [id number] [place] [address] 06818- 1167 Sep, [place] [id number] [place] [address] 64952- 4694 Sep, [place] [id number] [place] [address] 25610- 3187 Sep, Paranoid schizophrenia F20.0 [place] [id number] [place] [address] 91642- 9333 Sep, [place] [id number] [place] [address] 48991- 4579 Sep, Paranoid schizophrenia F20.0 [facility] [address] [address]- 5847 Sep, [facility] [id number] [place] [address] 17382- 4044 August, Paranoid schizophrenia F20.0 [facility] [id number] [place] [address] 69761- 8771 Jul, [facility] [id number] [place] [address] 72256- 6227 Jul, Type 2 diabetes mellitus without complication, without long- term current use of insulin E11.9 ; Morbid obesity due to excess calories E66.01 ; Depression with anxiety F41.8 ; Hypothyroidism, unspecified type E03.9 ; Seasonal allergic rhinitis due to other allergic trigger J30.89 ; Pain, dental K08.89 and Gastroesophageal reflux disease without esophagitis K21.9 [facility] [address] [place] [address] [id number] Jul, Dental examination Z01.20 [place] [id number] [place] [address] 66817- 1782 Jul, Paranoid schizophrenia F20.0 [place] [address] [place] [address] 41668- 6964 13 Jun, 2016 Paranoid schizophrenia F20.0 and Depression with anxiety F41.8 [place] [id number] [place] [address] 44151- 8218 Jun, Paranoid schizophrenia F20.0 and Depression with anxiety F41.8 [facility] [address], [place] [address]- 3461 Jun, [place] [id number] [place] [address] 54380- 8797 08 Jun, 2016 [facility] [address] [address] -8098 Jun, Seasonal allergic rhinitis due to other allergic trigger J30.89 [facility] [id number] [place] [address] 87412 -8242 25 May, 2016 Sore throat J02.9 ; Other viral agents as the cause of diseases classified elsewhere B97.89 and Acute upper respiratory infection, unspecified J06.9 [place] [id number] [place] [address] 65831- 9138 08 May, 2016 Paranoid schizophrenia F20.0 and Depression with anxiety F41.8 [place] [id number] [place] [address] 13707- 2656 Apr, Other seasonal allergic rhinitis J30.2 [place] [address] 04659- 2633 Apr, Paranoid schizophrenia F20.0 and Depression with anxiety F41.8 [facility] [place] [place] [id number] [place] [address] 91849 -1278 Apr, Bronchitis J40 and Sore throat J02.9 [place] [id number] [place] [address] 54628- 0589 Apr, Type 2 diabetes mellitus without complication, without long- term current use of insulin E11.9 [facility] [place] [id number] [place] [address] 10399 -1107 Apr, Bronchitis J40 [place] [id number] [place] [address] 91770- 7899 Apr, [place] [id number] [place] [address] 47580- 4521 Apr, [place] [id number] [place] [address] 78176- 6877 Mar, Type 2 diabetes mellitus without complication, [...] R60.9 and Other seasonal allergic rhinitis J30.2 [place] [address] [address] Mar, Paranoid schizophrenia F20.0 and Depression with anxiety F41.8 [place] [address] [address] Feb, [place] [address] [address] Feb, [place] [address] [address] Feb, [place] [address] [address] Feb, [place] [address] [address] Feb, Type 2 diabetes mellitus without complication, without long- term current use of insulin E11.9 ; ARIAS on CPAP G47.33 and Preoperative evaluation to rule out surgical contraindication Z01.818 [place] [address] [address]- [address] Feb, Paranoid schizophrenia F20.0 and Depression with anxiety F41.8 [place] [address] [address]- [address] Jan, [place] [address] [address] Jan, Paranoid schizophrenia F20.0 and Depression with anxiety F41.8 [place] [address] [address] Jan, [place] [address] [address]- 2366 Jan, Muscle strain T14.8 [place] [address] [address]- 2318 Jan, Paranoid schizophrenia F20.0 [facility] [id number] [address] Jan, [facility] [id number], [place] [address] 78[address] Jan, Paranoid schizophrenia F20.0 and Depression with anxiety F41.8 [facility] [id number] [address] 58[address] Jan, [facility] [address] [address] 1194 Jan, [facility] [id number] [place] [address] 92181- 9299 28 Dec, 2015 [facility] [address] [place] [id number] [place] [address] 18934- 0635 23 Dec, 2015 Paranoid schizophrenia F20.0 [facility] [address] [address] 99[address] 16 Dec, 2015 Paranoid schizophrenia F20.0 and Depression with anxiety F41.8 [facility] [address] [address] 3[address] Nov, [facility] [address] [address]- 8659 Nov, Paranoid schizophrenia F20.0 [facility] [address] [address] 4160 Nov, Paranoid schizophrenia F20.0 and Depression with anxiety F41.8 [facility] [address] [address] 90[address] 05 Nov, 2015 Type 2 diabetes mellitus without complication, without long- term current use of insulin E11.9 ; Paranoid schizophrenia F20.0 ; Chronic obstructive pulmonary disease, unspecified COPD type J44.9 ; Morbid obesity due to excess calories E66.01 and Parkinsonian tremor G20 [facility] [address] [address] 9152 Nov, [place] [id number] [place] [address]- 0780 Oct, Paranoid schizophrenia F20.0 [place] [address] [place] [id number] [place] [address] 19583- 2925 Oct, Paranoid schizophrenia F20.0 [place] [address] [place] [id number] [place] [address] 25753- 5037 Oct, Paranoid schizophrenia F20.0 and Depression with anxiety F41.8 [place] [address] [place] [id number] [place] [address] 42554- 3271 Oct, [place] [address] [place] [id number] [place] [address] 12723- 0937 Oct, Paranoid schizophrenia F20.0 and Depression with anxiety F41.8 [place] [address] [place] [id number] [place] [address] 50128- 6743 Oct, Nasal sore J34.89 [place] [address] [place] [id number] [place] [address] 76937- 6026 Oct, Type 2 diabetes mellitus without complication, without long- term current use of insulin E11.9 ; Depression with anxiety F41.8 ; Hypothyroidism, unspecified type E03.9 and History of lupus Z87.39 [place] [id number] [place] [address] 06291- 3532 Oct, [place] [id number] [place] [address] 48508- 4829 Oct, Type 2 diabetes mellitus without complication, [...] edema R60.9 and History of lupus Z87.39 [facility] [address] [place] [id number] [place] [address] 37381- 7793 Feb, [facility] [address] [place] [id number] [place] [address] 65347- 3715 Jan, [facility] [address] [place] [id number] [place] [address] 64895- 5522 Jan, [facility] [address] [place] [id number] [place] [address] 05402- 3437 Jan, [facility] [address] [place] [id number] [place] [address] 20507- 9413 Dec, [facility] [address] [place] [id number] [place] [address] 84840- 3182 Nov, [facility] [address] [place] [id number] [place] [address] 93895- 3655 Nov, [facility] [address] [place] [id number] [place] [address] 93382- 8647 Oct, [facility] [address] [place] [id number] [place] [address] 98238- 7893 Oct, [facility] [address] [place] [id number] [place] [address] 72549- 8926 Oct, [facility] [address] [place] [id number] [place] [address] 04206- 8557 Sep, Allergic rhinitis 477.9 [facility] [address] [place] [id number] [place] [address] 11302- 5213 Sep, Rhinitis, allergic 477.9 [facility] [address] [place] [id number] [place] [address] 10251- 0006 Sep, Rhinitis, allergic 477.9 [facility] [address] [place] [id number] [place] [address] 42841- 8636 Sep, [facility] [place] [facility] [address] [id number] [place] [address]- 0356 August, [facility] [place] [facility] [address] [id number] [place] [address]- 4840 August, [facility] [place] [facility] [address] [id number] [place] 4699 August, [facility] [place] [facility] [address] [id number] [place] [address]- 4933 Jul, [facility] [place] [facility] [address] [id number] [place] [address]- 1698 Jul, [facility] [place] [facility] [address] [id number] [place] [address]- 3745 Jul, [facility] [place] [facility] [address] [id number] [place] [address]- 5447 Jun, [facility] [place] [facility] [address] [id number] [place] [address]- 9866 Jun, [facility] [place] [facility] [address] [id number] [place] [address]- 0320 Jun, [facility] [place] [facility] [address] [id number] [place] [address]- 9127 Jun, [facility] [place] [facility] [address] [id number] [place] [address]- 5708 Jun, [facility] [place] [facility] [address] [id number] [address]- 6138 Jun, [facility] [place] [facility] [address] [id number] [place] [address]- 3111 Jun, [facility] [place] [facility] [address] [id number] [place] 0789 Jun, [facility] [place] [facility] [address] [id number] [place] [address]- 8831 May, [facility] [place] [facility] [address] [id number] [place] [address]- 4195 17 May, 2014 [facility] [address] [id number] [place] [address]- 1366 May, 2014 [facility] [place] [facility] [address] [id number] [place] [address]- 5176 May, 2014 [facility] [address] [id number] [place] [address]- 2713 Apr, [facility] [address] [id number] [place] [address]- 4552 Mar, [facility] [address] [id number] [place] 7320 Mar, [facility] [address] [id number] [place] [address]- 4398 Mar, [facility] [address] [id number] [place] [address]- 5178 Mar, [facility] [address] [id number] [place] [address]- 0247 Mar, [facility] [place] [facility] [address] [id number] [place] [address]- 0996 Mar, [facility] [address] [facility] [id number] [place] [address]- 1023 Mar, [facility] [place] [facility] [address] [id number] [place] [address]- 2444 Mar, [facility] [place] [facility] [address] [id number] [place] [address]- 4806 Mar, [facility] [place] [facility] [address] [id number] [place] [address]- 8803 Feb, [facility] [place] [facility] [address] [id number] [place] [address]- 1571 Feb, [facility] [place] [facility] [address] [id number] [place] [address]- 2748 Feb, [facility] [place] [facility] [address] [id number] [place] [address]- 2723 17 Feb, 2014 [facility] [place] [facility] [address] [id number] [place] [address]- 2594 14 Feb, 2014 [facility] [place] [facility] [address] [id number] [place] [address]- 3597 14 Feb, 2014 [facility] [place] [facility] [address] [id number] [place] [address]- 4830 Feb, [facility] [place] [facility] [address] [id number] [place] [address]- 0921 12 Feb, 2014 [facility] [place] [facility] [address] [id number] [place] [address]- 0418 23 Jan, 2014 [facility] [place] [facility] [address] [id number] [place] [address]- 8461 23 Jan, 2014 [facility] [place] [facility] [address] [id number] [place] [address]- 5210 16 Jan, 2014 [facility] [place] [facility] [address] [id number] [place] [address]- 1547 16 Jan, 2014 [facility] [place] [facility] [address] [id number] [place] [address]- 3645 15 Jan, 2014 [facility] [place] [facility] [address] [id number] [place] [address]- 8436 15 Jan, 2014 [facility] [place] [facility] [address] [id number] [address]- 6639 14 Jan, 2014 [facility] [place] [facility] [address] [id number] [place] [address]- 2210 14 Jan, 2014 [facility] [place] [facility] [address] [id number] [place] [address]- 7000 14 Jan, 2014 [facility] [place] [facility] [address] [id number] [address]- 1917 14 Jan, 2014 [facility] [place] [facility] [address] [id number] [address]- 8853 Dec, [facility] [place] [facility] [address] [id number] [place] [address]- 9010 Dec, [facility] [place] [facility] [address] [id number] [place] [address]- 0393 Dec, [facility] [place] [facility] [address] [id number] [place] [address]- 0519 Dec, [facility] [place] [facility] [address] [id number] [place] [address]- 0551 Nov, [facility] [place] [facility] [address] [id number] [place] [address]- 6647 Nov, [facility] [place] [facility] [address] [id number] [place] [address]- 1052 Nov, [facility] [place] [facility] [address] [id number] [place] [address]- 8053 Nov, [facility] [place] [facility] [address] [id number] [place] [address]- 0124 Nov, [facility] [place] [facility] [address] [id number] [place] [address]- 9888 Oct, [facility] [place] [facility] [address] [id number] [place] [address]- 7801 Oct, [facility] [place] [facility] [address] [id number] [place] [address]- 1376 Oct, [facility] [place] [facility] [address] [id number] [place] [address]- 9758 Oct, [facility] [place] [facility] [address] [id number] [place] [address]- 2746 Sep, [facility] [place] [facility] [address] [id number] [place] [address]- 7483 Sep, [facility] [place] [facility] [address] [id number] [place] [address]- 5820 Sep, [facility] [place] [facility] [address] [id number] [place] [address]- 6692 Sep, [facility] [place] [facility] [address] [id number] [place] [address]- 2091 Sep, [facility] [place] [facility] [address] [id number] [place] [address]- 5187 Sep, [facility] [place] [facility] [address] [id number] [place] [address]- 8205 Sep, [facility] [place] [facility] [address] [id number] [place] [address]- 0902 Sep, [facility] [place] [facility] [address] [id number] [place] [address]- 0317 August, [facility] [place] [facility] [address] [id number] [place] [address]- 3768 August, [facility] [place] [facility] [address] [id number] [place] [address]- 9222 August, [facility] [place] [facility] [address] [id number] [place] [address]- 7314 August, [facility] [place] [facility] [address] [id number] [place] [address]- 4296 August, [facility] [place] [facility] [address] [id number] [place] [address]- 2595 August, [facility] [place] [facility] [address] [id number] [place] [address]- 7986 August, [facility] [place] [facility] [address] [id number] [place] [address]- 2843 Jul, [facility] [place] [facility] [address] [id number] [place] [address]- 1146 Jul, [facility] [place] [facility] [address] [id number] [place] [address]- 8924 Jul, [facility] [place] [facility] [address] [id number] [place] [address]- 7485 Jul, [facility] [place] [facility] [address] [id number] [place] [address]- 7501 Jul, [facility] [place] [facility] [address] [id number] [place] [address]- 3085 Jul, [facility] [place] [facility] [address] [id number] [place] [address]- 9426 Jul, [facility] [place] [facility] [address] [id number] [place] [address]- 0876 Jul, [facility] [place] [facility] [address] [id number] [place] [address]- 1806 Jul, [facility] [place] [facility] [address] [id number] [place] [address]- 0701 Jul, [facility] [place] [facility] [address] [id number] [place] [address]- 9867 Jul, [facility] [place] [facility] [address] [id number] [place] [address]- 9543 Jul, [facility] [place] [facility] [address] [id number] [place] [address]- 5461 Jun, [facility] [place] [facility] [address] [id number] [place] [address]- 1837 Jun, [facility] [place] [facility] [address] [id number] [place] [address]- 1705 Jun, [facility] [place] [facility] [address] [id number] [place] [address]- 1448 Jun, [facility] [place] [facility] [address] [id number] [place] [address]- 3960 Jun, [facility] [place] [facility] [address] [id number] [place] [address]- 1976 May, [facility] [place] [facility] [address] [id number] [place] [address]- 0729 May, [facility] [place] [facility] [address] [id number] [place] [address]- 5318 May, 2013 [facility] [address] [id number] [place] [address]- 2130 May, 2013 [facility] [place] [facility] [address] [id number] [place] [address]- 1576 May, 2013 [facility] [address] [id number] [place] [address]- 4396 May, 2013 [facility] [place] [facility] [address] [id number] [place] [address]- 4951 May, 2013 [facility] [address] [id number] [place] 4820 May, 2013 [facility] [place] [facility] [address] [facility] [id number] [place] [address]- 1997 Mar, [facility] [place] [facility] [address] [id number] [place] [address]- 3681 Mar, [facility] [place] [facility] [address] [id number] [place] [address]- 6246 Mar, [facility] [place] [facility] [address] [facility] [id number] [place] [address]- 2869 Mar, [facility] [place] [facility] [address] [facility] [id number] [place] 3124 Mar, [facility] [place] [facility] [address] [facility] [id number] [place] [address]- 6699 Mar, [facility] [place] [facility] [address] [id number] [place] [address] 2541 Feb, [facility] [place] [facility] [address] [id number] [place] [address]- 0013 Feb, [facility] [place] [facility] [address] [id number] [place] [address]- 1510 Jan, [facility] [place] [facility] [address] [id number] [place] [address]- 4909 Jan, [facility] [place] [facility] [address] [id number] [place] [address]- 3316 Jan, [facility] [place] [facility] [address] [id number] [place] [address]- 5960 Jan, [facility] [place] [facility] [address] [id number] [place] [address]- 6657 Jan, [facility] [place] [facility] [address] [id number] [place] [address]- 6568 Jan, [facility] [place] [facility] [address] [id number] [place] [address]- 3289 Jan, [facility] [place] [facility] [address] [id number] [place] [address]- 7798 Jan, [facility] [place] [facility] [address] [id number] [place] [address]- 1580 Jan, [facility] [place] [facility] [address] [id number] [place] [address]- 6853 Jan, [facility] [place] [facility] [address] [id number] [place] [address]- 9862 Dec, [facility] [place] [facility] [address] [id number], [place] [address]- 5165 Nov, [facility] [place] [facility] [address] [id number] [place] [address]- 5849 Nov, [facility] [place] [facility] [address] [id number], [place] [address]- 7415 Nov, [facility] [place] [facility] [address] [id number] [place] [address]- 1996 Oct, [facility] [place] [facility] [address] [id number] [place] [address]- 2266 Oct, [facility] [place] [facility] [address] [id number] [place] [address]- 3162 August, [facility] [place] [facility] [address] [id number], [place] [address]- 4412 Apr, [facility] [address] [address]- 1906 Apr, [facility] [address] [address]- 9481 Feb, [facility] [address] [address]- 3610 Feb, [facility] [id number] [place] [address] 04129- 8580 Dec, [facility] [id number] [place] [address] 030867- 7012 Dec, [facility] [id number] [place] [address] 76727- 0161 Oct, [facility] [id number] [place] [address] 79505- 1811 Oct, [facility] [address] [address]- 5130 Oct, [facility] [address] [address]- 4671 Jul, IMMUNIZATIONS No Known Immunizations SOCIAL HISTORY Never Assessed REASON FOR VISIT Controlled Med Refill PLAN OF CARE VITAL SIGNS MEDICATIONS Medication Instructions Dosage Frequency Start Date End Date Duration Status Ambien 5 mg Orally Once a day 1 tablet at bedtime 24h Active RESULTS No Results PROCEDURES No Known procedures [...] for psychosis/mental illness , last one in [facility] 4 years ago
--- OUTSIDE RECORDS SUMMARY | 2018-09-02 13:11 | XMS REPORT ---
Author Author KING EB Organization 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 Machine Name Role Phone MARLENE MONETTA Unavailable PROBLEMS Type Condition ICD9-CM Code JUA19-TH Code Onset Dates Condition Status SNOMED Code Problem OAB (overactive bladder) N32.81 Active 943370466 Problem Depression with anxiety F41.8 Active 852391215 Problem Other seasonal allergic rhinitis J30.2 Active 337031128 Problem Chronic obstructive pulmonary disease, unspecified COPD type J44.9 Active 28858674 Problem Tobacco abuse Z72.0 Active 673759945 Problem Morbid obesity due to excess calories E66.01 Active 775316695 Problem Dyslipidemia E78.5 Active 234296098 Problem Hypothyroidism (acquired) E03.9 Active 246615957 Problem Essential hypertension I10 Active 10841743 Problem Diabetic polyneuropathy associated with type 2 diabetes mellitus E11.42 Active 785497045 Problem Type 2 diabetes mellitus with diabetic neuropathic arthropathy, 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 Active 280997454 Problem Type 2 diabetes mellitus without complication, without long-term current use of insulin E11.9 Active 614950044 Problem Paranoid schizophrenia F20.0 Active 56336129 Problem Chronic pain syndrome G89.4 Active 797463684 Problem Migraine without aura and without status migrainosus, not intractable G43.009 Active 559746417 Problem Gastroesophageal reflux disease, esophagitis presence not specified K21.9 Active 996571863 Problem Seasonal allergic rhinitis due to pollen J30.1 Active 98210173 Problem COPD exacerbation J44.1 Active 929965789 Problem Seasonal allergic rhinitis due to other allergic trigger J30.89 Active 770769632 Problem Schizoaffective disorder, depressive type F25.1 Active 02840421 Problem History of lupus Z87.39 Active 241817492 Problem Gastroesophageal reflux disease without esophagitis K21.9 Active 885471632 Problem Menopausal syndrome (hot flashes) N95.1 Active 909135135 Problem Other allergic rhinitis J30.89 Active 099667865 Problem Primary insomnia F51.01 Active 9488837 Problem DM neuro manif type II E11.49 Active 49790427 ALLERGIES No Information ENCOUNTERS Encounter Location Date Diagnosis [facility] [id number] [place] [address] 77241- 7177 Mar, [facility] [id number] [place] [address] 25821- 0694 Feb, Primary insomnia F51.01 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 [id number] [place] [address] 93843- 9447 Jan, [place] [id number] [place] [address] 43252- 1462 Jan, Schizoaffective disorder, depressive type F25.1 [facility] [id number] [place] [address] 92779- 4970 Jan, [facility] [id number] [place] [address] 86747- 3820 Jan, Chronic obstructive pulmonary disease, unspecified COPD type J44.9 ; BMI 45.0-49.9, adult Z68.42 ; Type 2 diabetes mellitus without complication, without long-term current use of insulin E11.9 ; Hypothyroidism ( acquired) E03.9 ; Encounter for immunization Z23 ; Gastroesophageal reflux disease without esophagitis K21.9 ; Primary insomnia F51.01 and Acute nasopharyngitis J00 [place] [address] 62549- 0790 27 Dec, 2017 [place] [address] 21299- 7180 21 Dec, 2017 Schizoaffective disorder, depressive type F25.1 and BMI 45.0 -49.9, adult Z68.42 [place] [address] 32787- 6932 Dec, [place] [address] 24851- 5420 18 Dec, 2017 [facility] [address] 77061- 9676 18 Dec, 2017 Acute non-recurrent frontal sinusitis J01.10 [place] [address] 51214- 7295 18 Dec, 2017 Acute non-recurrent frontal sinusitis J01.10 ; Weakness of left leg R29.898 ; At high risk for falls Z91.81 and BMI 45.0-49.9, adult Z68.42 [place] [id number] [place] [address] 59659- 4565 17 Dec, 2017 [place] [address] 02440- 1240 Dec, [place] [address] 96911- 8270 Dec, Schizoaffective disorder, depressive type F25.1 [facility] [address] 64747 -6947 Dec, Acute nasopharyngitis J00 [place] [id number] [place] [address] 50438- 7647 Dec, Schizoaffective disorder, depressive type F25.1 [place] [address] [place] [address] 07661- 9297 Dec, [place] [id number] [place] [address] 99920- 8194 Nov, Schizoaffective disorder, depressive type F25.1 and BMI 45.0 -49.9, adult Z68.42 [place] [id number] [place] [address] 43670- 7411 Nov, [place] [id number] [place] [address] 86178- 6094 Nov, [place] [id number] [place] [address] 16047- 5015 Nov, Schizoaffective disorder, depressive type F25.1 [place] [id number] [place] [address] 65496- 3983 Nov, Well woman exam Z01.419 ; BMI 45.0-49.9, adult Z68.42 ; Screening breast examination Z12.31 and Dietary counseling and surveillance Z71.3 [place] [address] [place] [address] 51343- 0641 Nov, Paranoid schizophrenia F20.0 [place] [address] [address] 0754 Nov, Gastroesophageal reflux disease, esophagitis presence not specified K21.9 [place] [address] [address] 8748 Oct, Paranoid schizophrenia F20.0 [facility] [address] [id number] [place] [address] Oct Chronic pain syndrome G89.4 and Schizoaffective disorder, depressive type F25.1 [place] [id number] [place] [address] 37418- 6589 18 Oct, 2017 Chronic pain syndrome G89.4 and Schizoaffective disorder, depressive type F25.1 [place] [id number] [place] [address] 63967- 7296 16 Oct, 2017 Type 2 diabetes mellitus without complication, without long- term current use of insulin E11.9 [place] [id number] [place] [address] 60610- 3232 Oct, Essential hypertension I10 and DM neuro manif type II E11.49 [place] [address] 36835- 0044 Oct, [place] [id number] [place] [address] 62297- 8343 Oct, Schizoaffective disorder, depressive type F25.1 and BMI 45.0 -49.9, adult Z68.42 [place] [id number] [place] [address] 27376- 8400 Oct, [place] [id number] [place] [address] 34263- 9122 Oct, Paranoid schizophrenia F20.0 [place] [id number] [place] [address] 58003- 3197 Oct, Type 2 diabetes mellitus with diabetic neuropathic arthropathy, 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 [id number] [place] [address] 61643- 3267 Sep, Schizoaffective disorder, depressive type F25.1 [facility] [id number] [place] [address] 53805- 5953 Sep, [facility] [id number] [place] [address] 67072- 4816 Sep, Paranoid schizophrenia F20.0 [facility] [id number] [place] [address] 54885- 5886 Sep, [facility] [address] 87458- 5388 Sep, Hypothyroidism (acquired) E03.9 [facility] [id number] [place] [address] 20117- 7594 Sep, [facility] [id number] [place] [address] 66859- 4304 August, Schizoaffective disorder, depressive type F25.1 [facility] [id number] [place] [address] 81687- 8878 August, [facility] [id number] [place] [address] 02747- 2489 August, [facility] [id number] [place] [address] 98818- 6944 August, [facility] [id number] [place] [address] 27708- 2007 August, Paranoid schizophrenia F20.0 [facility] [id number] [place] [address] 57726- 2348 August, History of lupus Z87.39 and Chronic pain syndrome G89.4 [facility] [id number] [place] [address] 44587- 1332 August, [facility] [id number] [place] [address] 36549 -4668 August, Seasonal allergic rhinitis, unspecified trigger J30.2 and BMI 45.0-49.9, adult Z68.42 [place] [id number] [place] [address] 62578- 2178 Jul, Schizoaffective disorder, depressive type F25.1 [place] [address] 94803- 3466 Jul, [place] [address] 34924- 5309 Jul, Hypothyroidism (acquired) E03.9 [place] [address] 88308- 9186 11 Jul, 2017 Chronic obstructive pulmonary disease, unspecified COPD type J44.9 and Type 2 diabetes mellitus without complication, without long-term current use of insulin E11.9 [place] [address] 20182- 0159 Jul, Paranoid schizophrenia F20.0 [place] [address] 13303- 0616 Jun, Hypothyroidism (acquired) E03.9 and Seasonal allergic rhinitis due to pollen J30.1 [facility] [id number] [place] [address] 55417 -8921 Jun, Shortness of breath at rest R06.02 ; COPD exacerbation J44.1 and BMI 45.0-49.9, adult Z68.42 [place] [id number] [place] [address] 38336- 4600 Jun, [place] [address] 34510- 8878 Jun, Paranoid schizophrenia F20.0 ; Depression with anxiety F41.8 and BMI 45.0-49.9, adult Z68.42 [place] [address] 93415- 0589 Jun, Schizoaffective disorder, depressive type F25.1 [facility] [address] [place] [address] [id number] Jun, Dental caries K02.9 [facility] [address] 9[address]00649- 9668 Jun, Paranoid schizophrenia F20.0 [facility] [address] 725242- 6154 May, Migraine without aura and without status migrainosus, not intractable G43.009 ; DM neuro manif type II E11.49 and Type 2 diabetes mellitus without complication, without long-term current use of insulin E11.9 [facility] [id number] [place]- 0265 May, Migraine without aura and without status migrainosus, not intractable G43.009 [facility] [address] [phone]- 6127 May, Depression with anxiety F41.8 [facility] [id number] [place] [address] [id number] May, [facility] [address] [id number]- 6876 May, [facility] [id number] [place] [address] 50857- 1155 May, [facility] [id number] [place] [phone]- 1156 May, Hypothyroidism (acquired) E03.9 [facility] [id number] [place] [address] 01099- 2148 May, Paranoid schizophrenia F20.0 [facility] [address] [phone]- 6066 May, Type 2 diabetes mellitus without complication, [...] N32.81 and Controlled substance agreement signed Z79.899 [facility] [address] 00522- 6371 May, Controlled substance agreement signed Z79.899 [place] [address] 90634- 4779 Apr, [facility] [address] [id number] Apr, Dental examination Z01.20 [place] [address] 30973- 9933 Apr, Paranoid schizophrenia F20.0 [place] [address] 64544- 4321 Apr, Hypertension, unspecified type I10 [place] [address] 33556- 0830 Apr, Paranoid schizophrenia F20.0 [place] [address] 80785- 6444 Apr, [place] [address] 41332- 4714 Apr, Tobacco abuse Z72.0 [facility] [address] 89518- 8400 Apr, [place] [address] 74485- 1808 Mar, [place] [address] 43313- 6997 27 Mar, 2017 Paranoid schizophrenia F20.0 and BMI 45.0-49.9, adult Z68.42 [facility] [id number] [place] [address] 11625- 8045 15 Mar, 2017 Schizoaffective disorder, depressive type F25.1 [place] [address] 45177- 1429 14 Mar, 2017 [facility] [address] 59353- 6272 Mar, Hypothyroidism, unspecified type E03.9 [place] [address] 01096- 9188 Mar, Schizoaffective disorder, depressive type F25.1 [facility] [id number] [place] [address] 23793 -8982 25 Feb, 2017 Gastroenteritis K52.9 and BMI 45.0-49.9, adult Z68.42 [place] [id number] [place] [address] 57394- 2109 Feb, [place] [address] 67574- 0253 Feb, [place] [id number] [place] [address] 43427- 4177 Feb, [place] [id number] [place] [address] 11222- 9125 16 Feb, 2017 [facility] [id number] [place] [address] 03882- 6933 10 Feb, 2017 Paranoid schizophrenia F20.0 [facility] [address] 97380- 7781 06 Feb, 2017 Gastroesophageal reflux disease without esophagitis K21.9 ; Other seasonal allergic rhinitis J30.2 ; Other allergic rhinitis J30.89 ; Tobacco abuse Z72.0 and BMI 40.0-44.9, adult Z68.41 [place] [id number] [place] [address] 17445- 7319 Feb, Onychomycosis B35.1 ; Callus of foot L84 and DM neuro manif type II E11.49 [place] [id number] [place] [address] 79396- 5487 Jan, Chronic allergic rhinitis J30.9 [place] [address] 21104- 3804 16 Jan, 2017 [place] [address] 34288- 6001 Jan, Schizoaffective disorder, depressive type F25.1 [place] [address] 66277- 9532 Jan, [facility] [place] [address] 37800 -2448 Jan, Sore throat J02.9 and Seasonal allergic rhinitis due to other allergic trigger J30.89 [place] [address] 52740- 3819 Jan, [place] [address] 34859- 2980 Jan, [facility] [place] [id number] [place] [address] 68934 -1096 Jan, Chronic allergic rhinitis J30.9 [place] [address] 62157- 4507 Dec, Paranoid schizophrenia F20.0 ; Primary insomnia F51.01 and Schizoaffective disorder, depressive type F25.1 [place] [address] 20570- 4146 Dec, Chronic pain syndrome G89.4 ; Cervicalgia of occipito- atlanto-axial region M54.2 ; Menopausal syndrome (hot flashes) N95.1 and Encounter for immunization Z23 [place] [id number] [place] [address]- 3927 14 Dec, 2016 [facility] [id number] [place] [address] 83279- 2981 13 Dec, 2016 [facility] [id number] [place] [address] 66225- 7983 08 Dec, 2016 Paranoid schizophrenia F20.0 [facility] [id number] [place] [address] 28121- 4741 Dec, Schizoaffective disorder, depressive type F25.1 [facility] [id number] [place] [address] 99148- 5838 Nov, Hypothyroidism, unspecified type E03.9 [facility] [id number] [place] [address] 91566 -0643 Nov, Acute seasonal allergic rhinitis due to other allergen J30.89 [facility] [id number] [place] [address] 21809- 1420 Nov, [facility] [id number] [place] [address] 77630- 4672 Nov, Hypothyroidism, unspecified type E03.9 and Other elevated white blood cell (WBC) count D72.828 [place] [id number] [place] [address] 75940- 2697 Nov, Schizoaffective disorder, depressive type F25.1 [facility] [id number] [place] [address] 97954- 6399 Nov, Paranoid schizophrenia F20.0 [facility] [id number] [place] [address] 67878- 7722 Nov, Type 2 diabetes mellitus without complication, without long- term current use of insulin E11.9 ; Morbid obesity due to excess calories E66.01 and Chronic pain syndrome G89.4 [facility] [address] [place] [address] 78250- 4733 Oct, Paranoid schizophrenia F20.0 [place] [address] [address]- 6772 Oct, [place] [id number] [place] [address] 48457- 3978 Oct, Schizoaffective disorder, depressive type F25.1 [place] [id number] [address]- 1238 Oct, Hypothyroidism, unspecified type E03.9 and Other elevated white blood cell (WBC) count D72.828 [place] [address] [address]- 6485 Oct, Morbid obesity due to excess calories E66.01 ; Chronic obstructive pulmonary disease, unspecified COPD type J44.9 ; History of lupus Z87.39 ; Hypothyroidism, unspecified type E03.9 ; Gastroesophageal reflux disease without esophagitis K21.9 ; Primary insomnia F51.01 and Chronic pain syndrome G89.4 [place] [id number] [place] [address] 36211- 8470 Sep, [place] [id number] [place] [address] 58866- 5425 Sep, [place] [id number] [address]- 0648 Sep, [place] [address] [address]- 5682 Sep, Paranoid schizophrenia F20.0 [place] [address] [address]- 9730 Sep, [place] [id number] [place] [address] 54349- 3029 Sep, Paranoid schizophrenia F20.0 [facility] [id number] [address]- 9728 Sep, [place] [id number] [place] [address] 02012- 7195 August, Paranoid schizophrenia F20.0 [facility] [id number] [place] [address] 64115- 9053 Jul, [place] [address] 82912- 6366 Jul, Type 2 diabetes mellitus without complication, without long- term current use of insulin E11.9 ; Morbid obesity due to excess calories E66.01 ; Depression with anxiety F41.8 ; Hypothyroidism, unspecified type E03.9 ; Seasonal allergic rhinitis due to other allergic trigger J30.89 ; Pain, dental K08.89 and Gastroesophageal reflux disease without esophagitis K21.9 [facility] [address] [id number] 12 Jul, 2016 Dental examination Z01.20 [place] [address] 83086- 4829 07 Jul, 2016 Paranoid schizophrenia F20.0 [place] [address] 46908- 7122 13 Jun, 2016 Paranoid schizophrenia F20.0 and Depression with anxiety F41.8 [place] [address] 73445- 4328 Jun, Paranoid schizophrenia F20.0 and Depression with anxiety F41.8 [place] [id number] [place] [address] Jun, [place] [address] [place] [id number] [place] [phone] [phone] Jun, [facility] [address] [place] [id number] [place] [phone] Jun, Seasonal allergic rhinitis due to other allergic trigger J30.89 [facility] [address] [place] [id number] [place] [address] May, Sore throat J02.9 ; Other viral agents as the cause of diseases classified elsewhere B97.89 and Acute upper respiratory infection, unspecified J06.9 [place] [address] [place] [id number] [place] [phone]- [phone] 08 May, 2016 Paranoid schizophrenia F20.0 and Depression with anxiety F41.8 [place] [address] [address] Apr, Other seasonal allergic rhinitis J30.2 [place] [address] [address]- [address] Apr, Paranoid schizophrenia F20.0 and Depression with anxiety F41.8 [facility] [place] [address] [address] Apr, Bronchitis J40 and Sore throat J02.9 [place] [address] [address] Apr, Type 2 diabetes mellitus without complication, without long- term current use of insulin E11.9 [facility] [place] [address] [address] Apr, Bronchitis J40 [place] [address] 196[address]- [address] Apr, [place] [address] [address]- [address] Apr, [place] [address] [address]- [address] Mar, Type 2 diabetes mellitus without complication, [...] R60.9 and Other seasonal allergic rhinitis J30.2 [place] [address] [address]- [address] Mar, Paranoid schizophrenia F20.0 and Depression with anxiety F41.8 [facility] [id number] [place] [phone]- [address]004 Feb, [facility] [address] [place] [id number] [place] [address] 24853- 2550 Feb, [facility] [id number] [place] [address] 95005- 0841 Feb, [facility] [id number] [place] [address] 25080- 8388 Feb, [facility] [id number] [place] [address] 45317- 6226 Feb, Type 2 diabetes mellitus without complication, without long- term current use of insulin E11.9 ; ARIAS on CPAP G47.33 and Preoperative evaluation to rule out surgical contraindication Z01.818 [place] [id number] [place] [address] 44832- 3899 Feb, Paranoid schizophrenia F20.0 and Depression with anxiety F41.8 [place] [id number] [place] [address] 87594- 0711 Jan, [place] [id number] [place] [address] 66102- 5615 Jan, Paranoid schizophrenia F20.0 and Depression with anxiety F41.8 [facility] [id number] [place] [address] 69824- 2707 17 Jan, 2016 [facility] [id number] [place] [address] 84785- 3858 14 Jan, 2016 Muscle strain T14.8 [facility] [id number] [place] [address] 66862- 1478 10 Jan, 2016 Paranoid schizophrenia F20.0 [facility] [id number] [place] [address] 84266- 5068 07 Jan, 2016 [facility] [id number] [place] [address] 48396- 4477 Jan, Paranoid schizophrenia F20.0 and Depression with anxiety F41.8 [facility] [address] [address] 9631 Jan, [facility] [address] [address] 5690 Jan, [facility] [id number] [place] [address] 26358- 6243 Dec, [facility] [id number] [place] [address] 30936- 9110 Dec, Paranoid schizophrenia F20.0 [facility] [id number] [place] [address] 96742- 1597 16 Dec, 2015 Paranoid schizophrenia F20.0 and Depression with anxiety F41.8 [facility] [id number] [place] [address] 23517- 7713 Nov, [facility] [id number] [place] [address] 42534- 5118 Nov, Paranoid schizophrenia F20.0 [facility] [id number] [place] [address] 78115- 9185 Nov, Paranoid schizophrenia F20.0 and Depression with anxiety F41.8 [facility] [address] [address]- 4617 Nov, Type 2 diabetes mellitus without complication, without long- term current use of insulin E11.9 ; Paranoid schizophrenia F20.0 ; Chronic obstructive pulmonary disease, unspecified COPD type J44.9 ; Morbid obesity due to excess calories E66.01 and Parkinsonian tremor G20 [facility] [address] [address] 6223 Nov, [facility] [address] [address]- 9156 Oct, Paranoid schizophrenia F20.0 [facility] [id number] [place] [address] 98476- 3613 Oct, Paranoid schizophrenia F20.0 [place] [id number] [place] [address] 64403- 9179 Oct, Paranoid schizophrenia F20.0 and Depression with anxiety F41.8 [place] [id number] [place] [address] 15381- 9689 Oct, [place] [address] 69177- 0495 Oct, Paranoid schizophrenia F20.0 and Depression with anxiety F41.8 [place] [id number] [place] [address] 34233- 2286 Oct, Nasal sore J34.89 [place] [id number] [place] [address] 50991- 0056 Oct, Type 2 diabetes mellitus without complication, without long- term current use of insulin E11.9 ; Depression with anxiety F41.8 ; Hypothyroidism, unspecified type E03.9 and History of lupus Z87.39 [place] [address] 74884- 9100 Oct, [place] [id number] [place] [address] 35167- 3280 Oct, Type 2 diabetes mellitus without complication, [...] edema R60.9 and History of lupus Z87.39 [place] [id number] [place] [address] 63375- 5958 Feb, [facility] [address] [id number] [place] [address]- 1635 Jan, [facility] [address] [facility] [id number] [place] 4204 Jan, [facility] [address] [facility] [id number] [place] [address]- 4606 Jan, [facility] [address] [facility] [id number] [place] [address]- 6676 Dec, [facility] [address] [facility] [id number] [place] [address]- 3410 Nov, [facility] [address] [facility] [id number] [place] [address]- 5024 Nov, [facility] [id number] [place] [address]- 3485 Oct, [facility] [address] [id number] [place] [address]- 7901 Oct, [facility] [address] [id number] [place] [address]- 1218 Oct, [facility] [address], [place] [address]- 4090 Sep, Allergic rhinitis 477.9 [facility] [address] [id number] [place] [address]- 0580 Sep, Rhinitis, allergic 477.9 [facility] [address] [facility] [id number], [place] [address]- 2718 Sep, Rhinitis, allergic 477.9 [facility] [address] [facility] [id number] [place] 3415 Sep, [facility] [address] [facility] [id number] [place] 4228 August, [facility] [id number] 6073 August, [facility] [place] [facility] [address] [id number] [place] [address]- 3269 August, [facility] [place] [facility] [address] [id number] [place] [address]- 8001 Jul, [facility] [place] [facility] [address] [id number] [place] [address]- 6775 Jul, [facility] [place] [facility] [address] [id number] [place] [address]- 3447 Jul, [facility] [place] [facility] [address] [id number] [place] [address]- 2045 Jun, [facility] [place] [facility] [address] [id number] [place] [address]- 4886 Jun, [facility] [place] [facility] [address] [id number] [place] [address]- 7478 Jun, [facility] [place] [facility] [address] [id number] [place] [address]- 4266 Jun, [facility] [place] [facility] [address] [id number] [place] [address]- 5547 Jun, [facility] [place] [facility] [address] [id number] [place] [address]- 2412 Jun, [facility] [place] [facility] [address] [id number] [place] [address]- 2175 Jun, [facility] [place] [facility] [address] [id number] [place] [address]- 7052 Jun, [facility] [place] [facility] [address] [id number] [place] 4681 May, [facility] [place] [facility] [address] [id number] [place] [address]- 0113 May, [facility] [place] [facility] [address] [id number] [place] [address]- 7069 May, [facility] [place] [facility] [address] [id number], [place] [address]- 2961 May, [facility] [place] [facility] [address] [id number] [place] [address]- 1121 Apr, [facility] [place] [facility] [address] [id number] [place] [address]- 1752 Mar, [facility] [place] [facility] [address] [facility] [id number] [place] [address]- 3490 Mar, [facility] [place] [facility] [address] [id number] [place] [address]- 0156 Mar, [facility] [place] [facility] [address] [id number] [place] [address]- 1288 Mar, [facility] [place] [facility] [address] [id number] [place] [address]- 7570 Mar, [facility] [place] [facility] [address] [facility] [id number] [place] [address]- 9647 Mar, [facility] [place] [facility] [address] [id number] [place] [address]- 7148 Mar, [facility] [place] [facility] [address] [facility] [id number] [place] [address]- 0873 Mar, [facility] [place] [facility] [address] [facility] [id number] [place] [address]- 5311 Mar, [facility] [place] [facility] [address] [id number] [place] [address]- 1848 Feb, [facility] [place] [facility] [address] [id number], [place] [address]- 1236 Feb, [facility] [place] [facility] [address] [id number] [place] [address]- 5307 Feb, [facility] [place] [facility] [address] [facility] [id number] [place] [address]- 5327 Feb, [facility] [place] [facility] [address] [facility] [id number] [place] [address]- 1481 14 Feb, 2014 [facility] [place] [facility] [address] [id number] [place] [address]- 7503 14 Feb, 2014 [facility] [place] [facility] [address] [id number] [place] [address]- 4422 12 Feb, 2014 [facility] [place] [facility] [address] [id number] [place] [address]- 5879 12 Feb, 2014 [facility] [place] [facility] [address] [id number] [place] [address]- 1229 23 Jan, 2014 [facility] [place] [facility] [address] [id number] [place] [address]- 3157 23 Jan, 2014 [facility] [place] [facility] [address] [id number] [place] [address]- 7792 16 Jan, 2014 [facility] [place] [facility] [address] [id number] [place] [address]- 1114 16 Jan, 2014 [facility] [place] [facility] [address] [id number] [place] [address]- 5438 15 Jan, 2014 [facility] [place] [facility] [address] [id number] [place] [address]- 3698 15 Jan, 2014 [facility] [place] [facility] [address] [id number] [place] [address]- 9557 14 Jan, 2014 [facility] [place] [facility] [address] [id number] [place] [address]- 7124 14 Jan, 2014 [facility] [place] [facility] [address] [id number] [place] [address]- 8006 14 Jan, 2014 [facility] [place] [facility] [address] [id number] [place] [address]- 5029 14 Jan, 2014 [facility] [place] [facility] [address] [id number] [place] [address]- 5179 18 Dec, 2013 [facility] [place] [facility] [address] [id number] [place] [address]- 3391 18 Dec, 2013 [facility] [place] [facility] [address] [id number] [place] [address]- 3180 Dec, [facility] [place] [facility] [address] [id number] [place] [address]- 7027 Dec, [facility] [place] [facility] [address] [id number] [place] [address]- 1346 Nov, [facility] [place] [facility] [address] [id number] [place] [address]- 3245 Nov, [facility] [place] [facility] [address] [id number] [place] [address]- 1061 Nov, [facility] [place] [facility] [address] [id number] [place] [address]- 1406 Nov, [facility] [place] [facility] [address] [id number] [place] [address]- 5400 Nov, [facility] [place] [facility] [address] [id number] [place] [address]- 7097 Oct, [facility] [place] [facility] [address] [id number] [place] [address]- 9410 Oct, [facility] [place] [facility] [address] [id number] [place] [address]- 8960 Oct, [facility] [place] [facility] [address] [id number] [place] [address]- 4283 Oct, [facility] [place] [facility] [address] [id number] [place] [address]- 5263 Sep, [facility] [place] [facility] [address] [id number] [place] [address]- 3267 Sep, [facility] [place] [facility] [address] [id number] [place] [address]- 6568 Sep, [facility] [place] [facility] [address] [id number] [place] [address]- 3889 Sep, [facility] [place] [facility] [address] [id number] [place] [address]- 6451 Sep, [facility] [place] [facility] [address] [id number] [place] [address]- 0255 Sep, [facility] [place] [facility] [address] [id number] [place] [address]- 0506 Sep, [facility] [place] [facility] [address] [id number] [place] [address]- 0469 Sep, [facility] [place] [facility] [address] [id number] [place] [address]- 4951 August, [facility] [place] [facility] [address] [id number] [place] [address]- 2400 August, [facility] [place] [facility] [address] [id number] [place] [address]- 4880 August, [facility] [place] [facility] [address] [id number] [place] [address]- 8330 August, [facility] [place] [facility] [address] [id number] [place] [address]- 1257 August, [facility] [place] [facility] [address] [id number] [place] [address]- 4384 August, [facility] [place] [facility] [address] [id number] [place] [address]- 3776 August, [facility] [place] [facility] [address] [id number] [place] [address]- 7327 Jul, [facility] [place] [facility] [address] [id number] [place] [address]- 7616 Jul, [facility] [place] [facility] [address] [id number] [place] [address]- 0501 Jul, [facility] [place] [facility] [address] [id number] [place] [address]- 7181 Jul, [facility] [place] [facility] [address] [id number] [place] [address]- 4088 Jul, [facility] [place] [facility] [address] [id number] [place] [address]- 5693 Jul, [facility] [place] [facility] [address] [id number] [place] [address]- 4020 Jul, [facility] [place] [facility] [address] [id number] [place] [address]- 7721 Jul, [facility] [place] [facility] [address] [id number] [place] [address]- 2242 Jul, [facility] [place] [facility] [address] [id number] [place] [address]- 0842 Jul, [facility] [place] [facility] [address] [id number] [place] [address]- 4298 Jul, [facility] [place] [facility] [address] [id number] [place] [address]- 4207 Jul, [facility] [place] [facility] [address] [id number] [place] [address]- 4980 Jun, [facility] [place] [facility] [address] [id number] [place] [address]- 2284 Jun, [facility] [place] [facility] [address] [id number] [place] [address]- 2559 Jun, [facility] [place] [facility] [address] [id number] [place] [address]- 2988 Jun, [facility] [place] [facility] [address] [id number] [place] [address]- 1303 Jun, [facility] [place] [facility] [address] [id number] [place] [address]- 3510 May, [facility] [place] [facility] [address] [id number] [place] [address]- 7770 May, [facility] [place] [facility] [address] [id number] [place] [address]- 4412 May, [facility] [place] [facility] [address] [id number] [place] [address]- 9471 May, [facility] [place] [facility] [address] [id number] [place] [address]- 9690 May, 2013 [facility] [place] [facility] [address] [id number] [place] [address]- 7884 May, 2013 [facility] [place] [facility] [address] [id number] [place] [address]- 0926 May, 2013 [facility] [place] [facility] [address] [facility] [id number] [place] [address]- 0944 May, 2013 [facility] [place] [facility] [address] [id number] [place] [address]- 2661 Mar, [facility] [place] [facility] [address] [id number] [place] [address]- 8535 Mar, [facility] [place] [facility] [address] [facility] [id number] [place] [address]- 9494 Mar, [facility] [place] [facility] [address] [facility] [id number] [place] [address]- 5435 Mar, [facility] [place] [facility] [address] [facility] [id number] [place] [address]- 1247 Mar, [facility] [place] [facility] [address] [facility] [id number] [place] [address]- 8432 Mar, [facility] [place] [facility] [address] [facility] [id number] [place] [address]- 5474 Feb, [facility] [place] [facility] [address] [facility] [id number] [place] [address]- 2744 Feb, [facility] [place] [facility] [address] [id number], [place] [address]- 6031 Jan, [facility] [place] [facility] [address] [id number] [place] [address]- 4916 Jan, [facility] [place] [facility] [address] [facility] [id number] [place] [address]- 4391 Jan, [facility] [place] [facility] [address] [facility] [id number], [place] [address]- 4671 Jan, [facility] [place] [facility] [address] [id number] [place] [address]- 9706 Jan, [facility] [place] [facility] [address] [id number] [place] [address]- 6154 Jan, [facility] [place] [facility] [address] [id number] [place] [address]- 7356 Jan, [facility] [place] [facility] [address] [id number] [place] [address]- 2881 Jan, [facility] [place] [facility] [address] [id number] [place] [address]- 1780 Jan, [facility] [place] [facility] [address] [id number] [place] [address]- 7792 Jan, [facility] [place] [facility] [address] [id number] [place] [address]- 2745 Dec, [facility] [place] [facility] [address] [id number] [place] [address] Nov, [facility] [place] [facility] [address] [id number] [place] [address] Nov, [facility] [place] [facility] [address] [id number] [place] [address] Nov, [facility] [place] [facility] [address] [id number] [place] [address] Oct, [facility] [place] [facility] [address] [id number] [place] [address] Oct, [facility] [place] [facility] [address] [id number] [place] [address] August, [facility] [place] [facility] [address] [id number] [place] [address] Apr, [facility] [place] [facility] [address] [id number] [place] [address] Apr, [facility] [place] [facility] [address] [id number], [place] [address] Feb, [facility] [address] [facility] [id number], [place] [address] Feb, [facility] [address] [id number], [place] [address] Dec, [facility] [address] [id number], [place] [address] Dec, [facility] [address] [id number], [place] [address] Oct, [facility] [id number], [place] [address] Oct, [facility] [address] [id number], [place] [address] Oct, [facility] [address] [id number], [place] [address] Jul, IMMUNIZATIONS No Known Immunizations SOCIAL HISTORY [...] for psychosis/mental illness , last one in [facility] 4 years ago
--- OUTSIDE RECORDS SUMMARY | 2018-09-02 13:12 | XMS REPORT ---
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 Name Role Phone UMESH PINEDA Unavailable PROBLEMS Type Condition ICD9-CM Code MTP61-FA Code Onset Dates Condition Status SNOMED Code Problem OAB (overactive bladder) N32.81 Active 853406564 Problem Depression with anxiety F41.8 Active 756093700 Problem Other seasonal allergic rhinitis J30.2 Active 867292474 Problem Chronic obstructive pulmonary disease, unspecified COPD type J44.9 Active 38627659 Problem Tobacco abuse Z72.0 Active 970728752 Problem Morbid obesity due to excess calories E66.01 Active 697913502 Problem Dyslipidemia E78.5 Active 858930523 Problem Hypothyroidism (acquired) E03.9 Active 888964425 Problem Essential hypertension I10 Active 85338812 Problem Diabetic polyneuropathy associated with type 2 diabetes mellitus E11.42 Active 889189365 Problem Type 2 diabetes mellitus with diabetic neuropathic arthropathy, 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 Active 632667387 Problem Type 2 diabetes mellitus without complication, without long-term current use of insulin E11.9 Active 068058680 Problem Paranoid schizophrenia F20.0 Active 20442254 Problem Chronic pain syndrome G89.4 Active 407125024 Problem Migraine without aura and without status migrainosus, not intractable G43.009 Active 847551935 Problem Gastroesophageal reflux disease, esophagitis presence not specified K21.9 Active 570374865 Problem Seasonal allergic rhinitis due to pollen J30.1 Active 27252994 Problem COPD exacerbation J44.1 Active 857622560 Problem Seasonal allergic rhinitis due to other allergic trigger J30.89 Active 358417183 Problem Schizoaffective disorder, depressive type F25.1 Active 27551469 Problem History of lupus Z87.39 Active 673109768 Problem Gastroesophageal reflux disease without esophagitis K21.9 Active 957450098 Problem Menopausal syndrome (hot flashes) N95.1 Active 156745943 Problem Other allergic rhinitis J30.89 Active 350939848 Problem Primary insomnia F51.01 Active 1167220 Problem DM neuro manif type II E11.49 Active 70051548 ALLERGIES No Information ENCOUNTERS Encounter Location Date Diagnosis [facility] [id number] [place] [address] 32228- 1648 Mar, [facility] [address] 09175- 6557 Feb, [facility] [id number] [place] [address] 74957- 4790 Jan, Schizoaffective disorder, depressive type F25.1 and BMI 45.0 -49.9, adult Z68.42 [facility] [id number] [place] [address] 10787- 1502 Jan, [facility] [address] 07371- 2240 16 Jan, 2018 Type 2 diabetes mellitus with diabetic neuropathic arthropathy, 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 ; Menopausal syndrome (hot flashes) N95.1 and BMI 40.0-44.9, adult Z68.41 [facility] [id number] [place] [address] 12193- 3969 Jan, Paranoid schizophrenia F20.0 [facility] [id number] [place] [address] 83552- 2035 Jan, [facility] [id number] [place] [address] 66592- 2788 Jan, Schizoaffective disorder, depressive type F25.1 [facility] [id number] [place] [address] 20198- 8577 Jan, [facility] [id number] [place] [address] 09529- 6837 Jan, Chronic obstructive pulmonary disease, unspecified COPD type J44.9 ; BMI 45.0-49.9, adult Z68.42 ; Type 2 diabetes mellitus without complication, without long-term current use of insulin E11.9 ; Hypothyroidism ( acquired) E03.9 ; Encounter for immunization Z23 ; Gastroesophageal reflux disease without esophagitis K21.9 ; Primary insomnia F51.01 and Acute nasopharyngitis J00 [facility] [id number] [place] [address] 29406- 8046 27 Dec, 2017 [facility] [address] 39634- 7070 21 Dec, 2017 Schizoaffective disorder, depressive type F25.1 and BMI 45.0 -49.9, adult Z68.42 [facility] [address] 03670- 1053 21 Dec, 2017 [facility] [address] 54904- 2096 18 Dec, 2017 [facility] [address] 85122- 3230 18 Dec, 2017 Acute non-recurrent frontal sinusitis J01.10 [facility] [id number] [place] [address] 73719- 2040 18 Dec, 2017 Acute non-recurrent frontal sinusitis J01.10 ; Weakness of left leg R29.898 ; At high risk for falls Z91.81 and BMI 45.0-49.9, adult Z68.42 [facility] [id number] [place] [address] 05965- 5227 17 Dec, 2017 [facility] [id number] [place] [address] 02540- 3835 17 Dec, 2017 [facility] [id number] [place] [address] 40866- 0865 10 Dec, 2017 Schizoaffective disorder, depressive type F25.1 [facility] [id number] [place] [address] 67477 -3426 10 Dec, 2017 Acute nasopharyngitis J00 [facility] [address] [place] [address]- 7315 Dec, Schizoaffective disorder, depressive type F25.1 [facility] [id number] [place] [address] 07120- 8107 Dec, [facility] [id number] [place] [address] 38110- 7476 Nov, Schizoaffective disorder, depressive type F25.1 and BMI 45.0 -49.9, adult Z68.42 [facility] [id number] [place] [address] 58421- 8646 Nov, [facility] [id number] [place] [address] 99305- 0808 Nov, [facility] [id number] [place] [address] 26932- 5285 Nov, Schizoaffective disorder, depressive type F25.1 [facility] [address] [place] [address] 48709- 0619 Nov, Well woman exam Z01.419 ; BMI 45.0-49.9, adult Z68.42 ; Screening breast examination Z12.31 and Dietary counseling and surveillance Z71.3 [facility] [address] [place] [address] 77038- 9003 Nov, Paranoid schizophrenia F20.0 [facility] [address] [address]- 6101 Nov, Gastroesophageal reflux disease, esophagitis presence not specified K21.9 [facility] [address] [address] 8264 Oct, Paranoid schizophrenia F20.0 [facility] [id number] [place] [address] Oct Chronic pain syndrome G89.4 and Schizoaffective disorder, depressive type F25.1 [facility] [address] [address]- 5543 Oct, Chronic pain syndrome G89.4 and Schizoaffective disorder, depressive type F25.1 [facility] [id number] [place] [address] 48522- 5460 16 Oct, 2017 Type 2 diabetes mellitus without complication, without long- term current use of insulin E11.9 [facility] [id number] [place] [address] 70415- 6688 12 Oct, 2017 Essential hypertension I10 and DM neuro manif type II E11.49 [facility] [id number] [place] [address] 98753- 8674 Oct, [facility] [address] 43286- 0108 Oct, Schizoaffective disorder, depressive type F25.1 and BMI 45.0 -49.9, adult Z68.42 [facility] [address] 07455- 6159 Oct, [facility] [id number] [place] [address] 45145- 9033 Oct, Paranoid schizophrenia F20.0 [facility] [address] 33347- 1204 Oct, Type 2 diabetes mellitus with diabetic neuropathic arthropathy, 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 ; Essential hypertension I10 ; Hypothyroidism (acquired) E03.9 ; Chronic obstructive pulmonary disease, unspecified COPD type J44.9 and Diabetic polyneuropathy associated with type 2 diabetes mellitus E11.42 [facility] [id number] [place] [address] 38605- 7751 Sep, Paranoid schizophrenia F20.[address] 32574- 9619 Sep, Paranoid schizophrenia F20.0 and BMI 45.0-49.9, adult Z68.42 [facility] [id number] [place] [address] 06769- 7074 15 Sep, 2017 Schizoaffective disorder, depressive type F25.1 [facility] [id number] [place] [address] 03717- 3121 Sep, [facility] [id number] [place] [address] 48120- 7382 Sep, Paranoid schizophrenia F20.0 [facility] [id number] [place] [address] 58689- 6327 Sep, [facility] [id number] [place] [address] 72025- 0392 Sep, Hypothyroidism (acquired) E03.9 [facility] [id number] [place] [address] 22187- 0745 Sep, [facility] [id number] [place] [address] 69050- 9240 August, Schizoaffective disorder, depressive type F25.1 [facility] [id number] [place] [address] 14226- 2045 August, [facility] [id number] [place] [address] 16452- 8876 August, [facility] [id number] [place] [address] 35801- 9886 August, [facility] [id number] [place] [address] 31079- 2800 August, Paranoid schizophrenia F20.0 [facility] [id number] [place] [address] 39948- 9144 August, History of lupus Z87.39 and Chronic pain syndrome G89.4 [facility] [id number] [place] [address] 48121- 9332 August, [facility] [id number] [place] [address] 96583 -5928 August, Seasonal allergic rhinitis, unspecified trigger J30.2 and BMI 45.0-49.9, adult Z68.42 [facility] [id number] [place] [address] 41684- 4985 Jul, Schizoaffective disorder, depressive type F25.1 [facility] [id number] [place] [address] 48836- 1662 19 Jul, 2017 [facility] [address] 37739- 1446 13 Jul, 2017 Hypothyroidism (acquired) E03.9 [facility] [address] 15293- 9363 11 Jul, 2017 Chronic obstructive pulmonary disease, unspecified COPD type J44.9 and Type 2 diabetes mellitus without complication, without long-term current use of insulin E11.9 [facility] [id number] [place] [address] 62118- 0417 Jul, Paranoid schizophrenia F20.0 [facility] [address] 17909- 8305 Jun, Hypothyroidism (acquired) E03.9 and Seasonal allergic rhinitis due to pollen J30.1 [facility] [address] 18985 -2018 Jun, Shortness of breath at rest R06.02 ; COPD exacerbation J44.1 and BMI 45.0-49.9, adult Z68.42 [facility] [id number] [place] [address] 11191- 2972 Jun, [facility] [address] 11692- 2669 Jun, Paranoid schizophrenia F20.0 ; Depression with anxiety F41.8 and BMI 45.0-49.9, adult Z68.42 [facility] [id number] [place] [address] 91185- 3224 Jun, Schizoaffective disorder, depressive type F25.1 [facility] [address] [id number] Jun, Dental caries K02.9 [facility] [id number] [place] [address] 53385- 6169 Jun, Paranoid schizophrenia F20.0 [facility] [id number] [place], [place] [address]- [address]51 May, Migraine without aura and without status migrainosus, not intractable G43.009 ; DM neuro manif type II E11.49 and Type 2 diabetes mellitus without complication, without long-term current use of insulin E11.9 [facility] [id number] [place] [address] 44157- 6651 May, Migraine without aura and without status migrainosus, not intractable G43.009 [facility] [id number] [place] [address] 16996- 7790 May, Depression with anxiety F41.8 [facility] [id number] [place] [address] [id number] May, [facility] [id number] [place] [address] 72094- 5082 May, [facility] [id number] [place] [address] 86051- 9451 May, [facility] [id number] [place] [address] 74711- 2927 May, Hypothyroidism (acquired) E03.9 [facility] [id number] [place] [address] 43014- 6873 May, Paranoid schizophrenia F20.0 [facility] [id number] [place] [address] 42961- 2276 May, Type 2 diabetes mellitus without complication, [...] N32.81 and Controlled substance agreement signed Z79.899 [facility] [address] 17638- 9446 May, Controlled substance agreement signed Z79.899 [facility] [address] 48442- 6997 Apr, [facility] [address] [id number] Apr, Dental examination Z01.20 [facility] [address] 07027- 9856 Apr, Paranoid schizophrenia F20.0 [facility] [address] 93147- 8214 Apr, Hypertension, unspecified type I10 [facility] [address] 22142- 4734 Apr, Paranoid schizophrenia F20.0 [facility] [address] 61769- 8557 Apr, [facility] [address] 13398- 8050 Apr, Tobacco abuse Z72.0 [facility] [address] 17517- 3427 Apr, [facility] [address] 36015- 0696 Mar, [facility] [address] 63038- 6198 Mar, Paranoid schizophrenia F20.0 and BMI 45.0-49.9, adult Z68.42 [facility] [id number] [place] [address] 82676- 1955 15 Mar, 2017 Schizoaffective disorder, depressive type F25.1 [facility] [id number] [place] [address] 95350- 5712 14 Mar, 2017 [facility] [id number] [place] [address] 54215- 0372 Mar, Hypothyroidism, unspecified type E03.9 [facility] [id number] [place] [address] 25822- 3502 12 Mar, 2017 Schizoaffective disorder, depressive type F25.1 [facility] [id number] [place] [address] 90707 -3258 25 Feb, 2017 Gastroenteritis K52.9 and BMI 45.0-49.9, adult Z68.42 [facility] [id number] [place] [address] 03411- 1485 22 Feb, 2017 [facility] [id number] [place] [address] 95234- 0643 Feb, [facility] [id number] [place] [address] 76364- 6776 Feb, [facility] [id number] [place] [address] 31772- 0229 16 Feb, 2017 [facility] [id number] [place] [address] 62472- 7232 Feb, Paranoid schizophrenia F20.0 [facility] [id number] [place] [address] 22321- 3809 06 Feb, 2017 Gastroesophageal reflux disease without esophagitis K21.9 ; Other seasonal allergic rhinitis J30.2 ; Other allergic rhinitis J30.89 ; Tobacco abuse Z72.0 and BMI 40.0-44.9, adult Z68.41 [facility] [id number] [place] [address] 22119- 2566 03 Feb, 2017 Onychomycosis B35.1 ; Callus of foot L84 and DM neuro manif type II E11.49 [facility] [id number] [place] [address] 56972- 1901 31 Jan, 2017 Chronic allergic rhinitis J30.9 [facility] [id number] [place] [address] 41563- 9322 16 Jan, 2017 [facility] [address] 29640- 8026 13 Jan, 2017 Schizoaffective disorder, depressive type F25.1 [facility] [address] 06558- 8175 10 Jan, 2017 [facility] [address] 03540 -8520 07 Jan, 2017 Sore throat J02.9 and Seasonal allergic rhinitis due to other allergic trigger J30.89 [facility] [address] 69165- 4170 Jan, [facility] [address] 41641- 3030 Jan, [facility] [address] 70841 -7613 Jan, Chronic allergic rhinitis J30.9 [facility] [address] 24103- 5977 27 Dec, 2016 Paranoid schizophrenia F20.0 ; Primary insomnia F51.01 and Schizoaffective disorder, depressive type F25.1 [facility] [address] 11858- 7659 21 Dec, 2016 Chronic pain syndrome G89.4 ; Cervicalgia of occipito- atlanto-axial region M54.2 ; Menopausal syndrome (hot flashes) N95.1 and Encounter for immunization Z23 [facility] [id number] [place] [address] 71783- 9443 14 Dec, 2016 [place] [place] [address] [place] [address]- 9402 13 Dec, 2016 [facility] [id number] [place] [address] 22769- 8857 Dec, Paranoid schizophrenia F20.0 [facility] [id number] [place] [address] 64020- 0487 Dec, Schizoaffective disorder, depressive type F25.1 [facility] [address] 16364- 6840 Nov, Hypothyroidism, unspecified type E03.9 [facility] [id number] [place] [address] 05983 -7938 Nov, Acute seasonal allergic rhinitis due to other allergen J30.89 [facility] [id number] [place] [address] 92037- 1430 Nov, [facility] [address] 17043- 3631 Nov, Hypothyroidism, unspecified type E03.9 and Other elevated white blood cell (WBC) count D72.828 [facility] [id number] [place] [address] 26695- 1419 Nov, Schizoaffective disorder, depressive type F25.1 [facility] [id number] [place] [address] 29144- 4553 Nov, Paranoid schizophrenia F20.0 [facility] [id number] [place] [address] 82081- 0951 Nov, Type 2 diabetes mellitus without complication, without long- term current use of insulin E11.9 ; Morbid obesity due to excess calories E66.01 and Chronic pain syndrome G89.4 [facility] [id number] [place] [address] 09753- 9416 Oct, Paranoid schizophrenia F20.0 [facility] [id number] [place] [address] 40403- 2823 Oct, [facility] [place] [id number] [place] [address] 31605- 1510 Oct, Schizoaffective disorder, depressive type F25.1 [facility] [id number] [place] [address] 03511- 7953 Oct, Hypothyroidism, unspecified type E03.9 and Other elevated white blood cell (WBC) count D72.828 [facility] [id number] [place] [address] 93096- 7842 Oct, Morbid obesity due to excess calories E66.01 ; Chronic obstructive pulmonary disease, unspecified COPD type J44.9 ; History of lupus Z87.39 ; Hypothyroidism, unspecified type E03.9 ; Gastroesophageal reflux disease without esophagitis K21.9 ; Primary insomnia F51.01 and Chronic pain syndrome G89.4 [facility] [id number] [place] [address] 99742- 2719 Sep, [facility] [id number] [place] [address] 75781- 5317 Sep, [facility] [id number] [place] [address] 36367- 1419 Sep, [facility] [id number] [place] [address] 51637- 5613 Sep, Paranoid schizophrenia F20.0 [facility] [id number] [place] [address] 80902- 9510 Sep, [facility] [id number] [place] [address] 72835- 8315 Sep, Paranoid schizophrenia F20.0 [facility] [id number] [place] [address] 89612- 3466 Sep, [facility] [id number] [place] [address] 57912- 5860 August, Paranoid schizophrenia F20.0 [facility] [place] [id number] [place] [address] 33467- 9483 27 Jul, 2016 [place] [id number] [place] [address] 07367- 3107 18 Jul, 2017 Type 2 diabetes mellitus without complication, without long- term current use of insulin E11.9 ; Morbid obesity due to excess calories E66.01 ; Depression with anxiety F41.8 ; Hypothyroidism, unspecified type E03.9 ; Seasonal allergic rhinitis due to other allergic trigger J30.89 ; Pain, dental K08.89 and Gastroesophageal reflux disease without esophagitis K21.9 [facility] [id number] [place] [address] [id number] 12 Jul, 2016 Dental examination Z01.20 [place] [address] 03652- 7320 07 Jul, 2016 Paranoid schizophrenia F20.0 [facility] [address] 64896- 6429 13 Jun, 2016 Paranoid schizophrenia F20.0 and Depression with anxiety F41.8 [facility] [id number] [place] [address] 00810- 2705 10 Jun, 2016 Paranoid schizophrenia F20.0 and Depression with anxiety F41.8 [facility] [address] 89340- 0267 09 Jun, 2016 [facility] [place] [id number] [place] [address] 99567- 1108 Jun, [facility] [id number] [place] [address] 19088 -7622 Jun, Seasonal allergic rhinitis due to other allergic trigger J30.89 [facility] [address] [place] [id number] [place] [address] 09316 -8318 May, Sore throat J02.9 ; Other viral agents as the cause of diseases classified elsewhere B97.89 and Acute upper respiratory infection, unspecified J06.9 [place] [id number] [place] [address] 70561- 1342 08 Feb, 2017 Paranoid schizophrenia F20.0 and Depression with anxiety F41.8 [facility] [id number] [place] [address] 82893- 4361 Apr, Other seasonal allergic rhinitis J30.2 [facility] [place] [id number] [place] [address] 38593- 8248 Apr, Paranoid schizophrenia F20.0 and Depression with anxiety F41.8 [facility] [address] 45671 -0849 Apr, Bronchitis J40 and Sore throat J02.9 [place] [address] [address] Apr, Type 2 diabetes mellitus without complication, without long- term current use of insulin E11.9 [facility] [place] [address] [address] Apr, Bronchitis J40 [place] [address] [address] Apr, [place] [address] [address] Apr, [place] [address] [address] Mar, Type 2 diabetes mellitus without complication, [...] R60.9 and Other seasonal allergic rhinitis J30.2 [place] [address] [place] [id number] [place] [address] Mar, Paranoid schizophrenia F20.0 and Depression with anxiety F41.8 [place] [address] [address] Feb, [facility] [address] [address] Feb, [facility] [id number] [place] [phone] Feb, [facility] [facility] [id number] [place] [address] 73660- 0956 Feb, [facility] [id number] [place] [address] 98279- 9620 14 Feb, 2016 Type 2 diabetes mellitus without complication, without long- term current use of insulin E11.9 ; ARIAS on CPAP G47.33 and Preoperative evaluation to rule out surgical contraindication Z01.818 [facility] [address] [address] 09 Feb, 2016 Paranoid schizophrenia F20.0 and Depression with anxiety F41.8 [facility] [id number] [place] [address] 44546- 3510 18 Jan, 2016 [facility] [id number] [place] [address] 58164- 4210 18 Jan, 2016 Paranoid schizophrenia F20.0 and Depression with anxiety F41.8 [facility] [address] [address] 2776 17 Jan, 2016 [facility] [id number] [place] [address] 73719- 0971 14 Jan, 2016 Muscle strain T14.8 [facility] [id number] [place] [address] 45578- 5721 10 Jan, 2016 Paranoid schizophrenia F20.0 [facility] [id number] [place] [address] 19999- 9635 07 Jan, 2016 [facility] [address] [address] 2574 05 Jan, 2016 Paranoid schizophrenia F20.0 and Depression with anxiety F41.8 [facility] [address] [address] 9735 Jan, [facility] [address] [address] 1828 Jan, [facility] [address] [address] 6776 28 Dec, 2015 [facility] [id number] [place] [address] 88632- 3969 23 Dec, 2015 Paranoid schizophrenia F20.0 [facility] [address] [address] 2740 16 Dec, 2015 Paranoid schizophrenia F20.0 and Depression with anxiety F41.8 [facility] [address] [address] 9798 Nov, [facility] [id number] [place] [address] 46992- 7460 Nov, Paranoid schizophrenia F20.0 [facility] [address] [address]- 8376 Nov, Paranoid schizophrenia F20.0 and Depression with anxiety F41.8 [facility] [address] [address]- 3497 Nov, Type 2 diabetes mellitus without complication, without long- term current use of insulin E11.9 ; Paranoid schizophrenia F20.0 ; Chronic obstructive pulmonary disease, unspecified COPD type J44.9 ; Morbid obesity due to excess calories E66.01 and Parkinsonian tremor G20 [facility] [address] [address]- 3885 Nov, [facility] [id number] [address]- 6500 Oct, Paranoid schizophrenia F20.0 [facility] [address] [address]- 9849 Oct, Paranoid schizophrenia F20.0 [facility] [id number] [place] [address] 91597- 1221 Oct, Paranoid schizophrenia F20.0 and Depression with anxiety F41.8 [facility] [id number] [place] [address] 01616- 0098 Oct, [facility] [id number] [place] [address] 33001- 7650 Oct, Paranoid schizophrenia F20.0 and Depression with anxiety F41.8 [facility] [id number] [place] [address] 80931- 1413 Oct, Nasal sore J34.89 [facility] [id number] [place] [address] 61936- 1848 Oct, Type 2 diabetes mellitus without complication, without long- term current use of insulin E11.9 ; Depression with anxiety F41.8 ; Hypothyroidism, unspecified type E03.9 and History of lupus Z87.39 [facility] [id number] [place] [address] 88163- 3405 Oct, [facility] [id number] [place] [address] 19412- 2760 Oct, Type 2 diabetes mellitus without complication, [...] edema R60.9 and History of lupus Z87.39 [facility] [id number] [place] [address] 54936- 8373 Feb, [facility] [id number] [place] [address] 58211- 9752 Jan, [facility] [address] [facility] [id number] [place] [address]- 5374 Jan, [facility] [address] [facility] [id number] [place] 9880 Jan, [facility] [address] [facility] [id number] [place] [address]- 9284 Dec, [facility] [address] [facility] [id number] [place] [address]- 1400 Nov, [facility] [address] [facility] [id number] [place] [address]- 7107 Nov, [facility] [address] [facility] [id number] [place] [address]- 5825 Oct, [facility] [address] [facility] [id number] [place] [address]- 5152 Oct, [facility] [address] [place] [address]- 8434 Oct, [facility] [id number] [address]- 1691 Sep, Allergic rhinitis 477.9 [facility] [id number] [address]- 9917 Sep, Rhinitis, allergic 477.9 [facility] [id number] [address]- 6397 Sep, Rhinitis, allergic 477.9 [facility] [address] [facility] [id number], [place] [address]- 2033 Sep, [facility] [address] [facility] [id number] [place] 8145 August, [facility] [address] [facility] [id number] [place] 2950 August, [facility] [id number] 6581 August, [facility] [place] [facility] [address] [id number] [place] [address]- 0752 28 Jul, 2014 [facility] [place] [facility] [address] [id number] [place] [address]- 9358 14 Jul, 2014 [facility] [place] [facility] [address] [id number] [place] [address]- 6001 13 Jul, 2014 [facility] [place] [facility] [address] [id number] [place] [address]- 3677 16 Jun, 2014 [facility] [place] [facility] [address] [id number] [place] [address]- 7633 16 Jun, 2014 [facility] [place] [facility] [address] [id number] [place] [address]- 8277 Jun, [facility] [place] [facility] [address] [id number] [place] [address]- 1019 Jun, [facility] [place] [facility] [address] [id number] [place] [address]- 2397 11 Jun, 2014 [facility] [place] [facility] [address] [id number] [place] [address]- 6358 Jun, [facility] [place] [facility] [address] [id number] [place] [address]- 3399 02 Jun, 2014 [facility] [place] [facility] [address] [id number] [place] [address]- 5017 Jun, [facility] [place] [facility] [address] [id number] [place] [address]- 1820 May, [facility] [place] [facility] [address] [id number] [place] 4516 May, [facility] [place] [facility] [address] [id number] [place] [address]- 8292 11 May, 2014 [facility] [place] [facility] [address] [id number] [place] 5853 11 May, 2014 [facility] [place] [facility] [address] [id number] [place] [address]- 2708 Apr, [facility] [place] [facility] [address] [id number] [place] [address]- 9125 Mar, [facility] [place] [facility] [address] [id number] [place] [address]- 3434 Mar, [facility] [place] [facility] [address] [id number] [place] [address]- 9809 Mar, [facility] [place] [facility] [address] [id number] [place] [address]- 2634 Mar, [facility] [place] [facility] [address] [id number] [place] [address]- 2739 Mar, [facility] [place] [facility] [address] [id number] [place] [address]- 4986 Mar, [facility] [place] [facility] [address] [id number] [place] [address]- 1747 Mar, [facility] [place] [facility] [address] [id number] [place] [address]- 2242 Mar, [facility] [place] [facility] [address] [id number] [place] [address]- 2521 Mar, [facility] [place] [facility] [address] [id number] [place] [address]- 8596 Feb, [facility] [place] [facility] [address] [id number] [place] [address]- 0891 Feb, [facility] [place] [facility] [address] [id number] [place] [address]- 0989 Feb, [facility] [place] [facility] [address] [id number] [place] [address]- 4971 Feb, [facility] [place] [facility] [address] [id number] [place] [address]- 1495 Feb, [facility] [place] [facility] [address] [id number] [place] [address]- 2807 Feb, [facility] [place] [facility] [address] [id number] [place] [address]- 7001 12 Feb, 2014 [facility] [place] [facility] [address] [id number] [place] [address]- 6220 Feb, [facility] [place] [facility] [address] [id number] [place] [address]- 8164 23 Jan, 2014 [facility] [place] [facility] [address] [id number] [place] [address]- 6003 23 Jan, 2014 [facility] [place] [facility] [address] [id number] [place] [address]- 9513 16 Jan, 2014 [facility] [place] [facility] [address] [id number] [place] [address]- 5110 16 Jan, 2014 [facility] [place] [facility] [address] [id number] [place] [address]- 4099 15 Jan, 2014 [facility] [place] [facility] [address] [id number] [place] [address]- 5196 15 Jan, 2014 [facility] [place] [facility] [address] [id number] [place] [address]- 5356 14 Jan, 2014 [facility] [place] [facility] [address] [id number] [place] [address]- 8730 14 Jan, 2014 [facility] [place] [facility] [address] [id number] [place] [address]- 9802 14 Jan, 2014 [facility] [place] [facility] [address] [id number] [place] [address]- 7557 14 Jan, 2014 [facility] [place] [facility] [address] [id number] [place] [address]- 5088 18 Dec, 2013 [facility] [place] [facility] [address] [id number] [place] [address]- 7168 18 Dec, 2013 [facility] [place] [facility] [address] [id number] [place] [address]- 6997 10 Dec, 2013 [facility] [place] [facility] [address] [id number] [place] [address]- 9930 Dec, [facility] [place] [facility] [address] [id number] [place] [address]- 8239 Nov, [facility] [place] [facility] [address] [id number] [place] [address]- 6197 Nov, [facility] [place] [facility] [address] [id number] [place] [address]- 8310 Nov, [facility] [place] [facility] [address] [id number] [place] [address]- 4224 Nov, [facility] [place] [facility] [address] [id number] [place] [address]- 3472 Nov, [facility] [place] [facility] [address] [id number] [place] [address]- 1471 Oct, [facility] [place] [facility] [address] [id number] [place] [address]- 7595 Oct, [facility] [place] [facility] [address] [id number] [place] [address]- 8630 Oct, [facility] [place] [facility] [address] [id number] [place] [address]- 0482 Oct, [facility] [place] [facility] [address] [id number] [place] [address]- 9956 Sep, [facility] [place] [facility] [address] [id number] [place] [address]- 5155 Sep, [facility] [place] [facility] [address] [id number] [place] [address]- 2759 Sep, [facility] [place] [facility] [address] [id number] [place] [address]- 7605 Sep, [facility] [place] [facility] [address] [id number] [place] [address]- 4183 Sep, [facility] [place] [facility] [address] [id number] [place] [address]- 8310 Sep, [facility] [place] [facility] [address] [id number] [place] [address]- 1915 Sep, [facility] [address] [id number] [place] [address]- 0058 Sep, [facility] [place] [facility] [address] [id number] [place] [address]- 8289 August, [facility] [place] [facility] [address] [id number] [place] [address]- 8572 August, [facility] [place] [facility] [address] [id number] [place] [address]- 3985 August, [facility] [place] [facility] [address] [id number] [place] [address]- 6352 August, [facility] [place] [facility] [address] [id number] [place] [address]- 5026 August, [facility] [address] [id number] [place] [address]- 4612 August, [facility] [place] [facility] [address] [id number] [place] [address]- 9646 August, [facility] [place] [facility] [address] [id number] [place] [address]- 5045 Jul, [facility] [place] [facility] [address] [id number] [place] [address]- 9527 Jul, [facility] [place] [facility] [address] [id number] [place] [address]- 5829 Jul, [facility] [place] [facility] [address] [id number] [place] [address]- 8079 Jul, [facility] [place] [facility] [address] [id number] [place] [address]- 7221 Jul, [facility] [place] [facility] [address] [id number] [place] [address]- 4637 Jul, [facility] [place] [facility] [address] [id number] [place] [address]- 5493 Jul, [facility] [place] [facility] [address] [id number] [place] [address]- 1460 Jul, [facility] [place] [facility] [address] [id number] [place] [address]- 9738 Jul, [facility] [place] [facility] [address] [id number] [place] [address]- 9348 Jul, [facility] [place] [facility] [address] [id number] [place] [address]- 9339 Jul, [facility] [place] [facility] [address] [id number] [place] [address]- 8140 Jul, [facility] [place] [facility] [address] [id number] [place] [address]- 6234 Jun, [facility] [place] [facility] [address] [id number] [place] [address]- 4310 Jun, [facility] [place] [facility] [address] [id number] [place] [address]- 6737 Jun, [facility] [place] [facility] [address] [id number] [place] [address]- 4880 Jun, [facility] [place] [facility] [address] [id number] [place] [address]- 3010 Jun, [facility] [place] [facility] [address] [id number] [place] [address]- 2965 May, [facility] [place] [facility] [address] [id number] [place] [address]- 1304 May, [facility] [place] [facility] [address] [id number] [place] [address]- 2716 May, [facility] [place] [facility] [address] [id number] [place] [address]- 3587 May, [facility] [place] [facility] [address] [id number] [place] 2403 May, [facility] [place] [facility] [address] [id number], [place] [address]- 1737 May, 2013 [facility] [address] [id number] [place] [address]- 9849 May, [facility] [place] [facility] [address] [id number], [place] [address]- 2312 May, [facility] [address] [facility] [id number] [place] [address]- 2915 Mar, [facility] [place] [facility] [address] [id number] [place] [address]- 1246 Mar, [facility] [address] [id number] [place] [address]- 3355 Mar, [facility] [place] [facility] [address] [id number] [place] [address]- 9065 Mar, [facility] [address] [facility] [id number] [place] [address]- 7826 Mar, [facility] [place] [facility] [address] [facility] [id number] [place] [address]- 8238 Mar, [facility] [place] [facility] [address] [facility] [id number] [place] [address]- 8521 Feb, [facility] [place] [facility] [address] [facility] [id number] [place] [address]- 9691 Feb, [facility] [place] [facility] [address] [id number], [place] [address]- 7744 Jan, [facility] [place] [facility] [address] [id number], [place] [address]- 1912 Jan, [facility] [place] [facility] [address] [id number], [place] [address]- 4949 Jan, [facility] [place] [facility] [address] [facility] [id number], [place] [address]- 0635 Jan, [facility] [place] [facility] [address] [facility] [id number], [place] [address]- 5497 Jan, [facility] [place] [facility] [address] [id number] [place] [address]- 0159 Jan, [facility] [place] [facility] [address] [id number] [place] [address]- 1766 Jan, [facility] [place] [facility] [address] [id number] [place] [address]- 2546 Jan, [facility] [place] [facility] [address] [id number] [place] [address]- 1483 Jan, [facility] [place] [facility] [address] [id number] [place] [address]- 0076 Jan, [facility] [place] [facility] [address] [id number] [place] [address]- 2276 Dec, [facility] [place] [facility] [address] [id number] [place] [address]- 2976 Nov, [facility] [place] [facility] [address] [id number] [place] [address]- 0833 Nov, [facility] [place] [facility] [address] [id number] [place] [address]- 7098 Nov, [facility] [place] [facility] [address] [id number] [place] [address]- 5278 Oct, [facility] [place] [facility] [address] [id number] [place] [address]- 9441 Oct, [facility] [place] [facility] [address] [id number] [place] [address]- 2764 August, [facility] [place] [facility] [address] [id number] [place] [address]- 5137 Apr, [facility] [place] [facility] [address] [id number] [place] [address]- 8616 Apr, [facility] [place] [facility] [address] [id number] [place] [address]- 2544 Feb, [facility] [place] [facility] [address] [id number] [place] [address]- 6906 Feb, [facility] [address] [facility] [id number] [place] [address]- 7827 Dec, [facility] [address] [facility] [id number], [place] [address]- 8156 Dec, [facility] [address] [facility] [id number], [place] [address]- 8846 Oct, [facility] [address] [facility] [id number], [place] [address]- 9332 Oct, [facility] [address] [facility] [id number], [place] [address]- 9175 Oct, [facility] [address] [facility] [id number], [place] [address]- 4262 Jul, IMMUNIZATIONS Vaccine Route Administration Date Status INVEGA (PT'S OWN) IM Intramuscular Mar 03, 2018 Administered SOCIAL HISTORY Never Assessed REASON FOR VISIT Injection PLAN OF CARE VITAL SIGNS MEDICATIONS Unknown Medications RESULTS No Results PROCEDURES Procedure Date Ordered Result Body Site INVEGA (PT'S OWN) Mar 03, 2018 THER/PROPH/DIAG INJ, SC/IM Mar 03, 2018 INSTRUCTIONS MEDICATIONS ADMINISTERED No Known Medications [...] for psychosis/mental illness , last one in [place] at [facility] 4 years ago
--- OUTSIDE RECORDS SUMMARY | 2018-09-02 13:12 | XMS REPORT ---
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 Name Role Phone UMESH PINEDA Unavailable PROBLEMS Type Condition ICD9-CM Code TCN81-RI Code Onset Dates Condition Status SNOMED Code Problem OAB (overactive bladder) N32.81 Active 662876287 Problem Depression with anxiety F41.8 Active 719268750 Problem Other seasonal allergic rhinitis J30.2 Active 599201175 Problem Chronic obstructive pulmonary disease, unspecified COPD type J44.9 Active 94273535 Problem Tobacco abuse Z72.0 Active 397144942 Problem Morbid obesity due to excess calories E66.01 Active 936891272 Problem Dyslipidemia E78.5 Active 313998839 Problem Hypothyroidism (acquired) E03.9 Active 330877315 Problem Essential hypertension I10 Active 05791643 Problem Diabetic polyneuropathy associated with type 2 diabetes mellitus E11.42 Active 232596743 Problem Type 2 diabetes mellitus with diabetic neuropathic arthropathy, 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 Active 304576246 Problem Type 2 diabetes mellitus without complication, without long-term current use of insulin E11.9 Active 397898050 Problem Paranoid schizophrenia F20.0 Active 11180392 Problem Chronic pain syndrome G89.4 Active 426669527 Problem Migraine without aura and without status migrainosus, not intractable G43.009 Active 790638180 Problem Gastroesophageal reflux disease, esophagitis presence not specified K21.9 Active 327006731 Problem Seasonal allergic rhinitis due to pollen J30.1 Active 36983056 Problem COPD exacerbation J44.1 Active 584338683 Problem Seasonal allergic rhinitis due to other allergic trigger J30.89 Active 340451916 Problem Schizoaffective disorder, depressive type F25.1 Active 68346749 Problem History of lupus Z87.39 Active 863459542 Problem Gastroesophageal reflux disease without esophagitis K21.9 Active 661705875 Problem Menopausal syndrome (hot flashes) N95.1 Active 436761927 Problem Other allergic rhinitis J30.89 Active 118966597 Problem Primary insomnia F51.01 Active 3637870 Problem DM neuro manif type II E11.49 Active 52017835 ALLERGIES No Information ENCOUNTERS Encounter Location Date Diagnosis [facility] [id number] [id number] [place] [address] 65675- 7481 Mar, [place] [address] 89484- 5047 Jan, Schizoaffective disorder, depressive type F25.1 and BMI 45.0 -49.9, adult Z68.42 [place] [address] 03232- 0401 22 Jan, 2018 [place] [id number] [place] [address] 12425- 0327 16 Jan, 2018 Type 2 diabetes mellitus with diabetic neuropathic arthropathy, 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 ; Menopausal syndrome (hot flashes) N95.1 and BMI 40.0-44.9, adult Z68.41 [place] [id number] [place] [address] 58305- 7823 11 Jan, 2018 Paranoid schizophrenia F20.0 [place] [id number] [place] [address] 61068- 4840 08 Jan, 2018 [place] [id number] [place] [address] 99950- 4189 04 Jan, 2018 Schizoaffective disorder, depressive type F25.1 [place] [id number] [place] [address] 79051- 5547 Jan, [place] [address] 01663- 7953 02 Jan, 2018 Chronic obstructive pulmonary disease, unspecified COPD type J44.9 ; BMI 45.0-49.9, adult Z68.42 ; Type 2 diabetes mellitus without complication, without long-term current use of insulin E11.9 ; Hypothyroidism ( acquired) E03.9 ; Encounter for immunization Z23 ; Gastroesophageal reflux disease without esophagitis K21.9 ; Primary insomnia F51.01 and Acute nasopharyngitis J00 [facility] [address] 59993- 3702 27 Dec, 2017 [facility] [address] 25023- 6176 21 Dec, 2017 Schizoaffective disorder, depressive type F25.1 and BMI 45.0 -49.9, adult Z68.42 [facility] [address] 18411- 7987 21 Dec, 2017 [facility] [address] 53170- 2409 18 Dec, 2017 [facility] [address] 18396- 8644 18 Dec, 2017 Acute non-recurrent frontal sinusitis J01.10 [facility] [address] 78572- 7031 18 Dec, 2017 Acute non-recurrent frontal sinusitis J01.10 ; Weakness of left leg R29.898 ; At high risk for falls Z91.81 and BMI 45.0-49.9, adult Z68.42 [facility] [id number] [place] [address] 73223- 1239 17 Dec, 2017 [facility] [address] 63208- 9269 17 Dec, 2017 [facility] [id number] [place] [address] 34614- 2559 10 Dec, 2017 Schizoaffective disorder, depressive type F25.1 [facility] [address] 46819 -6330 10 Dec, 2017 Acute nasopharyngitis J00 [facility] [id number] [place] [address] 37189- 4464 05 Dec, 2017 Schizoaffective disorder, depressive type F25.1 [place] [address] [address] 0819 Dec, [place] [address] [place] [address] 38672- 1378 Nov, Schizoaffective disorder, depressive type F25.1 and BMI 45.0 -49.9, adult Z68.42 [place] [address] [place] [address] 12108- 4921 Nov, [place] [address] [place] [address] 00296- 7075 Nov, [place] [id number] [place] [address] 66012- 0549 Nov, Schizoaffective disorder, depressive type F25.1 [place] [address] [place] [address] 57854- 1453 Nov, Well woman exam Z01.419 ; BMI 45.0-49.9, adult Z68.42 ; Screening breast examination Z12.31 and Dietary counseling and surveillance Z71.3 [place] [address] [place] [address] 33809- 7283 Nov, Paranoid schizophrenia F20.0 [place] [address] [address] 0985 Nov, Gastroesophageal reflux disease, esophagitis presence not specified K21.9 [place] [address] [address] 2290 Oct, Paranoid schizophrenia F20.0 [facility] [id number] [address] Oct Chronic pain syndrome G89.4 and Schizoaffective disorder, depressive type F25.1 [place] [address] [address]- 0283 Oct, Chronic pain syndrome G89.4 and Schizoaffective disorder, depressive type F25.1 [place] [id number] [place] [address] 75586- 3900 16 Oct, 2017 Type 2 diabetes mellitus without complication, without long- term current use of insulin E11.9 [place] [id number] [place] [address] 47397- 0256 12 Oct, 2017 Essential hypertension I10 and DM neuro manif type II E11.49 [place] [id number] [place] [address] 81774- 6655 Oct, [place] [id number] [place] [address] 56789- 5907 Oct, Schizoaffective disorder, depressive type F25.1 and BMI 45.0 -49.9, adult Z68.42 [place] [id number] [place] [address] 25048- 4432 Oct, [place] [id number] [place] [address] 40890- 1311 Oct, Paranoid schizophrenia F20.0 [place] [id number] [place] [address] 96511- 7440 Oct, Type 2 diabetes mellitus with diabetic neuropathic arthropathy, 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 ; Essential hypertension I10 ; Hypothyroidism (acquired) E03.9 ; Chronic obstructive pulmonary disease, unspecified COPD type J44.9 and Diabetic polyneuropathy associated with type 2 diabetes mellitus E11.42 [place] [id number] [place] [address] 87146- 1499 Sep, Paranoid schizophrenia F20.0 [place] [address] [id number] [place] [address] 77714- 1708 Sep, Paranoid schizophrenia F20.0 and BMI 45.0-49.9, adult Z68.42 [place] [id number] [place] [address] 53228- 0247 Sep, Schizoaffective disorder, depressive type F25.1 [place] [id number] [place] [address] 16998- 3794 15 Sep, 2017 [facility] [id number] [place] [address] 08064- 0196 Sep, Paranoid schizophrenia F20.0 [facility] [id number] [place] [address] 72550- 6886 Sep, [facility] [id number] [place] [address] 63264- 9183 Sep, Hypothyroidism (acquired) E03.9 [facility] [id number] [place] [address] 24371- 5179 Sep, [facility] [id number] [place] [address] 89677- 6962 August, Schizoaffective disorder, depressive type F25.1 [facility] [address] [id number] [place] [address] 39857- 1189 August, [facility] [id number] [place] [address] 58725- 6973 August, [facility] [id number] [place] [address] 22591- 7019 August, [facility] [id number] [place] [address] 53845- 6279 August, Paranoid schizophrenia F20.0 [facility] [id number] [place] [address] 05186- 2927 August, History of lupus Z87.39 and Chronic pain syndrome G89.4 [facility] [id number] [place] [address] 74582- 8721 August, [facility] [id number] [place] [address] 63244 -8555 August, Seasonal allergic rhinitis, unspecified trigger J30.2 and BMI 45.0-49.9, adult Z68.42 [facility] [id number] [place] [address] 48288- 5722 Jul, Schizoaffective disorder, depressive type F25.1 [facility] [address] 22947- 3978 Jul, [facility] [address] 79827- 8811 Jul, Hypothyroidism (acquired) E03.9 [facility] [address] 45764- 1020 Jul, Chronic obstructive pulmonary disease, unspecified COPD type J44.9 and Type 2 diabetes mellitus without complication, without long-term current use of insulin E11.9 [place] [address] 50931- 9862 Jul, Paranoid schizophrenia F20.0 [place] [address] 18002- 5969 Jun, Hypothyroidism (acquired) E03.9 and Seasonal allergic rhinitis due to pollen J30.1 [facility]ALK IN [facility] [address] 44784 -8503 Jun, Shortness of breath at rest R06.02 ; COPD exacerbation J44.1 and BMI 45.0-49.9, adult Z68.42 [place] [address] 45586- 1235 Jun, [facility] [address] 80710- 0775 Jun, Paranoid schizophrenia F20.0 ; Depression with anxiety F41.8 and BMI 45.0-49.9, adult Z68.42 [facility] [address] 87585- 9142 20 Jun, 2017 Schizoaffective disorder, depressive type F25.1 [facility] [id number] [place] [address] [id number] 13 Jun, 2017 Dental caries K02.9 [facility] [address] 07310- 7315 Jun, Paranoid schizophrenia F20.0 [facility] [address] [place] [address] May, Migraine without aura and without status migrainosus, not intractable G43.009 ; DM neuro manif type II E11.49 and Type 2 diabetes mellitus without complication, without long-term current use of insulin E11.9 [facility] [id number] [place] [address] 83780- 1067 May, Migraine without aura and without status migrainosus, not intractable G43.009 [facility] [id number] [place] [address]40 May, Depression with anxiety F41.8 [facility] [address] [place] [address] [id number] May, [facility] [id number] [place] [address] 73953- 0537 May, [facility] [id number] [place] [address] 53021- 8239 May, [facility] [id number] [place] [id number]- 6605 May, Hypothyroidism (acquired) E03.9 [facility] [address] [place] [address] 40278- 5172 May, Paranoid schizophrenia F20.0 [facility] [id number] [place] [address] 56928- 4818 May, Type 2 diabetes mellitus without complication, [...] N32.81 and Controlled substance agreement signed Z79.899 [facility] [id number] [place] [address] 30296- 6463 May, Controlled substance agreement signed Z79.899 [facility] [address] 44598- 7222 Apr, [facility] [address] [id number] Apr, Dental examination Z01.20 [facility] [address] 88707- 1350 Apr, Paranoid schizophrenia F20.0 [facility] [id number] [place] [address] 07486- 9872 Apr, Hypertension, unspecified type I10 [facility] [id number] [place] [address] 81256- 5665 Apr, Paranoid schizophrenia F20.0 [facility] [address] 92260- 3846 Apr, [facility] [id number] [place] [address] 35929- 4116 Apr, Tobacco abuse Z72.0 [facility] [id number] [place] [address] 88464- 2392 Apr, [facility] [id number] [place] [address] 01713- 9407 Mar, [facility] [address] 04214- 1105 Mar, Paranoid schizophrenia F20.0 and BMI 45.0-49.9, adult Z68.42 [facility] [id number] [place] [address] 53682- 5355 Mar, Schizoaffective disorder, depressive type F25.1 [place] [address] 92967- 4443 Mar, [facility] [address] 74735- 6595 Mar, Schizoaffective disorder, depressive type F25.1 [place] [address] 37199- 6658 Mar, Hypothyroidism, unspecified type E03.9 [facility] [address] 98404 -4403 Feb, Gastroenteritis K52.9 and BMI 45.0-49.9, adult Z68.42 [place] [address] 55380- 3363 Feb, [place] [address] 92156- 9335 Feb, [place] [address] 64487- 2501 Feb, [place] [address] 65513- 3372 Feb, [place] [address] 52169- 0562 Feb, Paranoid schizophrenia F20.0 [place] [address] 67586- 6658 Feb, Gastroesophageal reflux disease without esophagitis K21.9 ; Other seasonal allergic rhinitis J30.2 ; Other allergic rhinitis J30.89 ; Tobacco abuse Z72.0 and BMI 40.0-44.9, adult Z68.41 [place] [address] 68423- 1839 03 Feb, 2017 Onychomycosis B35.1 ; Callus of foot L84 and DM neuro manif type II E11.49 [place] [address] [place] [address]- 6718 31 Jan, 2017 Chronic allergic rhinitis J30.9 [facility] [address] 22355- 2597 16 Jan, 2017 [facility] [address] 47599- 1851 13 Jan, 2017 Schizoaffective disorder, depressive type F25.1 [facility] [address] 60857- 1605 10 Jan, 2017 [facility] [address] 23959 -0773 07 Jan, 2017 Sore throat J02.9 and Seasonal allergic rhinitis due to other allergic trigger J30.89 [facility] [address] 08584- 5574 04 Jan, 2017 [facility] [address] 23657- 5667 Jan, [facility] [address] 67814 -5990 Jan, Chronic allergic rhinitis J30.9 [facility] [address] 94555- 2497 27 Dec, 2016 Paranoid schizophrenia F20.0 ; Primary insomnia F51.01 and Schizoaffective disorder, depressive type F25.1 [facility] [address] 06791- 4771 21 Dec, 2016 Chronic pain syndrome G89.4 ; Cervicalgia of occipito- atlanto-axial region M54.2 ; Menopausal syndrome (hot flashes) N95.1 and Encounter for immunization Z23 [facility] [address] 41298- 5417 14 Dec, 2016 [facility] [address] 89412- 4434 13 Dec, 2016 [facility] [address] [place] [address]- 7436 Dec, Paranoid schizophrenia F20.0 [place] [id number] [place] [address] 18335- 0871 Dec, Schizoaffective disorder, depressive type F25.1 [facility] [id number] [place] [address] 39280- 0168 Nov, Hypothyroidism, unspecified type E03.9 [facility] [id number] [place] [address] 74630 -7301 Nov, Acute seasonal allergic rhinitis due to other allergen J30.89 [place] [address] 95543- 5779 Nov, [place] [address] [id number] [place] [address] 69144- 0783 Nov, Hypothyroidism, unspecified type E03.9 and Other elevated white blood cell (WBC) count D72.828 [place] [id number] [place] [address] 00798- 7270 Nov, Schizoaffective disorder, depressive type F25.1 [facility] [id number] [place] [address] 82606- 6602 Nov, Paranoid schizophrenia F20.0 [facility] [place] [id number] [place] [address] 03158- 3269 Nov, Type 2 diabetes mellitus without complication, without long- term current use of insulin E11.9 ; Morbid obesity due to excess calories E66.01 and Chronic pain syndrome G89.4 [place] [id number] [place] [address] 48545- 4267 Oct, Paranoid schizophrenia F20.0 [facility] [id number] [place] [address] 95691- 9467 Oct, [place] [id number] [place] [address] 57657- 5723 Oct, Schizoaffective disorder, depressive type F25.1 [facility] [id number] [place] [address] 72631- 2051 Oct, Hypothyroidism, unspecified type E03.9 and Other elevated white blood cell (WBC) count D72.828 [facility] [id number] [place] [address] 39265- 1203 Oct, Morbid obesity due to excess calories E66.01 ; Chronic obstructive pulmonary disease, unspecified COPD type J44.9 ; History of lupus Z87.39 ; Hypothyroidism, unspecified type E03.9 ; Gastroesophageal reflux disease without esophagitis K21.9 ; Primary insomnia F51.01 and Chronic pain syndrome G89.4 [facility] [id number] [place] [address] 57675- 0399 Sep, [place] [id number] [place] [address] 11205- 7886 Sep, [facility] [id number] [place] [address] 61832- 4114 Sep, [facility] [id number] [place] [address] 84831- 1912 Sep, Paranoid schizophrenia F20.0 [facility] [id number] [place] [address] 90771- 5891 Sep, [facility] [id number] [place] [address] 21056- 8955 Sep, Paranoid schizophrenia F20.0 [facility] [id number] [place] [address] 61631- 6917 Sep, [facility] [id number] [place] [address] 19708- 4888 August, Paranoid schizophrenia F20.0 [facility] [id number] [place] [address] 40991- 7159 Jul, [facility] [id number] [place] [address] 20041- 7933 Jul, 2017 Type 2 diabetes mellitus without complication, without long- term current use of insulin E11.9 ; Morbid obesity due to excess calories E66.01 ; Depression with anxiety F41.8 ; Hypothyroidism, unspecified type E03.9 ; Seasonal allergic rhinitis due to other allergic trigger J30.89 ; Pain, dental K08.89 and Gastroesophageal reflux disease without esophagitis K21.9 [facility] [id number] [place] [address] [id number] 12 Jul, 2016 Dental examination Z01.[address] 50302- 5153 07 Jul, 2016 Paranoid schizophrenia F20.[address] 45325- 7529 13 Jun, 2016 Paranoid schizophrenia F20.0 and Depression with anxiety F41.[address] 42716- 7456 Jun, Paranoid schizophrenia F20.0 and Depression with anxiety F41.[address] 33110- 7081 Jun, [address] 41063- 2761 Jun, [facility] [id number] [place] [address] 93665 -6561 Jun, Seasonal allergic rhinitis due to other allergic trigger J30.89 [facility] IN [address] 49936 -2359 May, Sore throat J02.9 ; Other viral agents as the cause of diseases classified elsewhere B97.89 and Acute upper respiratory infection, unspecified J06.9 [place] [id number] [place] [address] 95173- 5607 08 May, 2016 Paranoid schizophrenia F20.0 and Depression with anxiety F41.[address] 82477- 1845 Apr, Other seasonal allergic rhinitis J30.2 [place] [id number] [place] [address] 91070- 8708 Apr, Paranoid schizophrenia F20.0 and Depression with anxiety F41.8 [facility] [id number] [place] [address] 86312 -7397 Apr, Bronchitis J40 and Sore throat J02.9 [place] [address] 65243- 0259 Apr, Type 2 diabetes mellitus without complication, without long- term current use of insulin E11.9 [facility] IN [facility] [address] 54998 -8631 Apr, Bronchitis J40 [place] [address] 97709- 6946 Apr, [place] [address] 73260- 1941 Apr, [place] [id number] [place] [address] 43817- 0567 Mar, Type 2 diabetes mellitus without complication, [...] R60.9 and Other seasonal allergic rhinitis J30.2 [place] [address] [address] [place] [id number] [place] [address] Mar, Paranoid schizophrenia F20.0 and Depression with anxiety F41.8 [place] [address] [address] [place] [id number] [place] [address] Feb, [place] [address] [address] Feb, [facility] [id number] [place] [address] Feb, [facility] [address] [place] [id number] [place] [address] Feb, [facility] [address] [place] [id number] [place] [address] Feb, Type 2 diabetes mellitus without complication, without long- term current use of insulin E11.9 ; ARIAS on CPAP G47.33 and Preoperative evaluation to rule out surgical contraindication Z01.818 [facility] [address] [place] [id number] [place] [address] Feb, Paranoid schizophrenia F20.0 and Depression with anxiety F41.8 [facility] [address] [place] [id number] [place] [address] Jan, [facility] [address] [place] [id number] [place] [address] Jan, Paranoid schizophrenia F20.0 and Depression with anxiety F41.8 [facility] [id number] [place] [address] 55833- 0235 Jan, [facility] [id number] [place] [address] 49708- 4111 Jan, Muscle strain T14.8 [facility] [id number] [place] [address] 88052- 1728 Jan, Paranoid schizophrenia F20.0 [facility] [id number] [place] [address] 31460- 2902 Jan, [facility] [id number] [place] [address] 19487- 6656 Jan, Paranoid schizophrenia F20.0 and Depression with anxiety F41.8 [facility] [id number] [place] [address] 78365- 0406 Jan, [facility] [id number] [address] 0547 Jan, [facility] [address], [place] [address] 0949 28 Dec, 2015 [facility] [address], [place] [address] 3654 23 Dec, 2015 Paranoid schizophrenia F20.0 [facility] [id number] [place] [address] 16276- 5529 16 Dec, 2015 Paranoid schizophrenia F20.0 and Depression with anxiety F41.8 [facility] [id number] [place] [address] 05461- 9485 Nov, [facility] [id number] [place] [address] 46685- 4702 Nov, Paranoid schizophrenia F20.0 [facility] [id number] [place] [address] 68215- 0500 Nov, Paranoid schizophrenia F20.0 and Depression with anxiety F41.8 [facility] [id number] [address]- 8053 Nov, Type 2 diabetes mellitus without complication, without long- term current use of insulin E11.9 ; Paranoid schizophrenia F20.0 ; Chronic obstructive pulmonary disease, unspecified COPD type J44.9 ; Morbid obesity due to excess calories E66.01 and Parkinsonian tremor G20 [facility] [address] [address] 4738 Nov, [facility] [address] [address]- 3736 Oct, Paranoid schizophrenia F20.0 [facility] [address] [address]- 7076 Oct, Paranoid schizophrenia F20.0 [facility] [address] [address]- 3286 Oct, Paranoid schizophrenia F20.0 and Depression with anxiety F41.8 [facility] [id number] [place] [address] 72603- 6782 Oct, [facility] [id number] [place] [address] 83379- 3338 Oct, Paranoid schizophrenia F20.0 and Depression with anxiety F41.8 [facility] [id number] [place] [address] 49480- 5704 Oct, Nasal sore J34.89 [facility] [id number] [place] [address] 55542- 3390 Oct, Type 2 diabetes mellitus without complication, without long- term current use of insulin E11.9 ; Depression with anxiety F41.8 ; Hypothyroidism, unspecified type E03.9 and History of lupus Z87.39 [facility] [id number] [place] [address] 64877- 0535 Oct, [facility] [id number] [place] [address] 27445- 2154 Oct, Type 2 diabetes mellitus without complication, [...] edema R60.9 and History of lupus Z87.39 [facility] [id number] [place] [address] 95888- 4494 Feb, [facility] [id number] [place] [address] 90040- 7634 Jan, [facility] [id number] [place] [address] 12481- 0632 Jan, [facility] [address] [facility] [id number] [place] [address]- 3254 Jan, [facility] [address] [facility] [id number] [place] [address]- 2199 Dec, [facility] [address] [facility] [id number] [place] [address]- 2257 Nov, [facility] [address] [facility] [id number] [place] [address]- 5645 Nov, [facility] [address] [facility] [id number] [place] [address]- 2659 Oct, [facility] [address] [facility] [id number] [place] [address]- 0458 Oct, [facility] [id number] [place] [address]- 5524 Oct, [facility] [id number] [place] [address]- 3982 Sep, Allergic rhinitis 477.9 [facility] [id number] [place] [address]- 6636 Sep, Rhinitis, allergic 477.9 [facility] [address] [id number] [place] [address]- 8610 Sep, Rhinitis, allergic 477.9 [facility] [address] [id number] [place] [address]- 2797 Sep, [facility] [address] [facility] [id number] [place] [address]- 3815 August, [facility] [address] [facility] [id number] [place] 0814 August, [facility] [address] [facility] [id number] [place] [address]- 7828 August, [facility] [address] [id number] 7080 Jul, [facility] [place] [facility] [address] [id number] [place] [address]- 9436 14 Jul, 2014 [facility] [place] [facility] [address] [id number] [place] [address]- 2314 13 Jul, 2014 [facility] [place] [facility] [address] [id number] [place] [address]- 5575 16 Jun, 2014 [facility] [place] [facility] [address] [id number] [place] [address]- 2068 16 Jun, 2014 [facility] [place] [facility] [address] [id number] [place] [address]- 1985 Jun, [facility] [place] [facility] [address] [id number] [place] [address]- 9116 Jun, [facility] [place] [facility] [address] [id number] [place] [address]- 9773 Jun, [facility] [place] [facility] [address] [id number] [place] [address]- 5715 Jun, [facility] [place] [facility] [address] [id number] [place] [address]- 7889 Jun, [facility] [place] [facility] [address] [id number] [place] [address]- 3814 Jun, [facility] [place] [facility] [address] [id number] [place] [address]- 2639 May, [facility] [place] [facility] [address] [id number] [place] [address]- 0280 May, [facility] [place] [facility] [address] [id number] [place] [address]- 5988 May, [facility] [place] [facility] [address] [id number] [place] [address]- 1568 May, [facility] [place] [facility] [address] [id number] [place] [address]- 0880 Apr, [facility] [place] [facility] [address] [id number] [place] [address]- 4557 Mar, [facility] [place] [facility] [address] [id number] [place] [address]- 3881 Mar, [facility] [place] [facility] [address] [id number] [place] 0782 Mar, [facility] [place] [facility] [address] [id number] [place] [address]- 1408 Mar, [facility] [place] [facility] [address] [id number] [place] [address]- 6813 Mar, [facility] [place] [facility] [address] [id number] [place] [address]- 2237 Mar, [facility] [place] [facility] [address] [id number] [place] [address]- 8195 Mar, [facility] [place] [facility] [address] [id number] [place] [address]- 9156 Mar, [facility] [place] [facility] [address] [id number] [place] [address]- 6265 Mar, [facility] [place] [facility] [address] [id number] [place] [address]- 5253 Feb, [facility] [place] [facility] [address] [id number] [place] [address]- 4450 Feb, [facility] [place] [facility] [address] [id number] [place] [address]- 0356 Feb, [facility] [place] [facility] [address] [id number] [place] [address]- 6278 17 Feb, 2014 [facility] [place] [facility] [address] [id number] [place] [address]- 4801 Feb, [facility] [place] [facility] [address] [id number] [place] [address]- 5624 Feb, [facility] [place] [facility] [address] [id number] [place] [address]- 1211 Feb, [facility] [place] [facility] [address] [id number] [place] [address]- 1873 12 Feb, 2014 [facility] [place] [facility] [address] [id number] [place] [address]- 4200 23 Jan, 2014 [facility] [place] [facility] [address] [id number] [place] [address]- 8035 23 Jan, 2014 [facility] [place] [facility] [address] [id number] [place] [address]- 4136 16 Jan, 2014 [facility] [place] [facility] [address] [id number] [place] [address]- 5856 16 Jan, 2014 [facility] [place] [facility] [address] [id number] [place] [address]- 2792 15 Jan, 2014 [facility] [place] [facility] [address] [id number] [place] [address]- 6571 15 Jan, 2014 [facility] [place] [facility] [address] [id number] [place] [address]- 9405 14 Jan, 2014 [facility] [place] [facility] [address] [id number] [place] [address]- 3210 14 Jan, 2014 [facility] [place] [facility] [address] [id number] [place] [address]- 6810 14 Jan, 2014 [facility] [place] [facility] [address] [id number] [place] [address]- 5709 14 Jan, 2014 [facility] [place] [facility] [address] [id number] [place] [address]- 8653 18 Dec, 2013 [facility] [place] [facility] [address] [id number] [place] [address]- 5279 18 Dec, 2013 [facility] [place] [facility] [address] [id number] [place] [address]- 8021 10 Dec, 2013 [facility] [place] [facility] [address] [id number] [place] [address]- 3287 10 Dec, 2013 [facility] [place] [facility] [address] [id number] [place] [address]- 2463 Nov, [facility] [place] [facility] [address] [id number] [place] [address]- 2519 Nov, [facility] [place] [facility] [address] [id number] [place] [address]- 9351 Nov, [facility] [place] [facility] [address] [id number] [place] [address]- 5888 Nov, [facility] [place] [facility] [address] [id number] [place] [address]- 5802 Nov, [facility] [place] [facility] [address] [id number] [place] [address]- 0906 Oct, [facility] [place] [facility] [address] [id number] [place] [address]- 9788 Oct, [facility] [place] [facility] [address] [id number] [place] [address]- 0460 Oct, [facility] [place] [facility] [address] [id number] [place] [address]- 5175 Oct, [facility] [place] [facility] [address] [id number] [place] [address]- 7488 Sep, [facility] [place] [facility] [address] [id number] [place] [address]- 3839 Sep, [facility] [place] [facility] [address] [id number] [place] [address]- 6209 Sep, [facility] [place] [facility] [address] [id number] [place] [address]- 0142 Sep, [facility] [place] [facility] [address] [id number] [place] [address]- 9988 Sep, [facility] [place] [facility] [address] [id number] [place] [address]- 5772 Sep, [facility] [place] [facility] [address] [id number] [place] [address]- 1867 Sep, [facility] [place] [facility] [address] [id number] [place] [address]- 4180 Sep, [facility] [address] [id number] [place] [address]- 6804 August, [facility] [place] [facility] [address] [id number] [place] [address]- 9757 August, [facility] [place] [facility] [address] [id number] [place] [address]- 6725 August, [facility] [place] [facility] [address] [id number] [place] [address]- 6598 August, [facility] [place] [facility] [address] [id number] [place] [address]- 5318 August, [facility] [place] [facility] [address] [id number] [place] [address]- 6804 August, [facility] [address] [id number] [place] [address]- 0340 August, [facility] [place] [facility] [address] [id number] [place] [address]- 0390 Jul, [facility] [place] [facility] [address] [id number] [place] [address]- 7074 Jul, [facility] [place] [facility] [address] [id number] [place] [address]- 9182 Jul, [facility] [place] [facility] [address] [id number] [place] [address]- 8696 Jul, [facility] [place] [facility] [address] [id number] [place] [address]- 9414 Jul, [facility] [place] [facility] [address] [id number] [place] [address]- 9136 Jul, [facility] [place] [facility] [address] [id number] [place] [address]- 3207 2013 [facility] [place] [facility] [address] [id number] [place] [address]- 9263 Jul, [facility] [place] [facility] [address] [id number] [place] [address]- 3183 Jul, [facility] [place] [facility] [address] [id number] [place] [address]- 6591 Jul, [facility] [place] [facility] [address] [id number] [place] [address]- 9513 Jul, [facility] [place] [facility] [address] [id number] [place] [address]- 0038 Jul, [facility] [place] [facility] [address] [id number] [place] [address]- 3468 Jun, [facility] [place] [facility] [address] [id number] [place] [address]- 0292 Jun, [facility] [place] [facility] [address] [facility] [id number] [place] [address]- 6894 Jun, [facility] [place] [facility] [address] [id number] [place] [address]- 0740 Jun, [facility] [place] [facility] [address] [id number] [place] [address]- 4718 Jun, [facility] [place] [facility] [address] [id number] [place] [address]- 9277 May, [facility] [place] [facility] [address] [facility] [id number] [place] [address]- 8595 May, [facility] [place] [facility] [address] [id number] [place] [address]- 1763 May, [facility] [place] [facility] [address] [id number] [place] [address]- 4643 May, [facility] [place] [facility] [address] [id number] [place] [address]- 1953 May, [facility] [place] [facility] [address] [facility] [id number] [place] [address]- 8489 May, [facility] [place] [facility] [address] [facility] [id number], [place] [address]- 6946 May, [facility] [address] [id number] [place] 3401 May, [facility] [address] [id number] 3998 Mar, [facility] [address] [facility] [id number] [place] 1143 Mar, [facility] [place] [facility] [address] [id number] [place] [address]- 0740 Mar, [facility] [address] [id number] [place] 5648 Mar, [facility] [place] [facility] [address] [id number] [place] [address]- 5018 Mar, [facility] [address] [facility] [id number], [place] [address]- 8603 Mar, [facility] [place] [facility] [address] [id number], [place] [address]- 0553 Feb, [facility] [address] [facility] [id number], [place] [address]- 1024 Feb, [facility] [address] [facility] [id number], [place] [address]- 7635 Jan, [facility] [place] [facility] [address] [id number], [place] [address]- 2369 Jan, [facility] [place] [facility] [address] [id number], [place] [address]- 9323 Jan, [facility] [place] [facility] [address] [id number], [place] [address]- 0018 Jan, [facility] [place] [facility] [address] [facility] [id number], [place] [address]- 3732 Jan, [facility] [place] [facility] [address] [facility] [id number], [place] [address]- 3477 Jan, [facility] [place] [facility] [address] [id number] [place] [address]- 2632 Jan, [facility] [place] [facility] [address] [id number] [place] [address]- 9340 Jan, [facility] [place] [facility] [address] [id number] [place] [address]- 5676 Jan, [facility] [place] [facility] [address] [id number] [place] [address]- 0395 Jan, [facility] [place] [facility] [address] [id number] [place] [address]- 1124 Dec, [facility] [place] [facility] [address] [id number] [place] [address]- 6690 Nov, [facility] [place] [facility] [address] [id number] [place] [address]- 2222 Nov, [facility] [place] [facility] [address] [id number] [place] [address]- 3483 Nov, [facility] [place] [facility] [address] [id number] [place] [address]- 4162 Oct, [facility] [place] [facility] [address] [id number] [place] [address]- 8501 Oct, [facility] [place] [facility] [address] [id number] [place] [address]- 9308 August, [facility] [place] [facility] [address] [id number] [place] [address]- 4487 Apr, [facility] [place] [facility] [address] [id number] [place] [address]- 9132 Apr, [facility] [place] [facility] [address] [id number] [place] [address]- 7744 Feb, [facility] [place] [facility] [address] [id number] [place] [address]- 6785 Feb, [facility] [place] [facility] [address] [id number] [place]- 8136 Dec, [facility] [address] [facility] [id number], [place] [address]- 7375 Dec, [facility] [address] [facility] [id number], [place] [address]- 2456 Oct, [facility] [address] [facility] [id number], [place] [address]- 6886 Oct, [facility] [address] [facility] [id number], [place] [address]- 6125 Oct, [facility] [address] [facility] [id number], [place] [address]- 4279 Jul, IMMUNIZATIONS No Known Immunizations SOCIAL HISTORY Never Assessed REASON FOR VISIT BH f/u-AB/TAMMIE PLAN OF CARE Activity Details Follow Up 2 Months Reason: VITAL SIGNS Height 57 in 2018-02-16 Weight 206.7 lbs 2018-02-16 Heart Rate 86 bpm 2018-02-16 Respiratory Rate 20 2018-02-16 BMI 44.72 kg/m2 2018-02-16 Blood pressure systolic 124 mmHg 2018-02-16 Blood pressure diastolic 86 mmHg 2018-02-16 MEDICATIONS Medication Instructions Dosage Frequency Start Date End Date Duration Status ibuprofen 800 mg Oral 3 times a day PRN 1 tab Jul, 30 days Active Metformin HCl 1000 mg Orally twice a day 1 tablet with a meal 12h 90 days Active Singulair 10 mg Orally Once a day 1 tablet 24h 90 days Active Loratadine 10 mg Orally Once a day 1 tablet 24h Dec, Mar, 90 days Active Loxapine Succinate 10 MG Orally Twice a day PRN 1 capsule 30 days Active Protonix 40 mg Orally Once a day 1 tablet 24h 13 Nov, 2017 90 days Active Cetirizine HCl 10 mg Orally Once a day 1 tablet 24h Mar, 90 days Active Zoloft 100 mg Orally Once a day 2 tablet 24h 30 days Active Januvia 100 mg Orally Once a day 1 tablet 24h 90 days Active Claritin 10 MG Orally Once a day 1 tablet 24h Active Myrbetriq 50 MG Orally Once a day 1 tablet 24h 30 day(s) Active Restasis 0.05 % Ophthalmic Twice a day 1 drop into affected eye 12h Active Flonase 50 mcg/act Nasally Once a day 1 spray in each nostril 24h 30 day(s) Active Estradiol 2 MG Orally Once a day 1 tablet 24h 90 days Active Spironolactone 50 mg Orally Once a day 1 tablet with food 24h Mar, 90 days Active Breo Ellipta 100-25 MCG/INH Inhalation Once a day 1 puff 24h Active Invega Sustenna 234 MG/1.5ML Intramuscular Once a month, on the 10th of every month 1.5 ml 30 days Active Ambien 5 mg Orally Once a day 1 tablet at bedtime 24h Active Gabapentin 600 MG Orally Three times a day 1 tablet 8h 28 days Active Triamcinolone Acetonide 0.5 % Externally Once a day apply thin layer to rash 24h Active Levothyroxine Sodium 150 MCG Orally Once a day 1 tablet on an empty stomach in the morning 24h 90 days Active Albuterol Sulfate HFA 108 (90 Base) MCG/ACT Inhalation every 6 hrs 2 puffs as needed 6h Active HydrOXYzine HCl 50 mg Orally every 8 hrs 1 tablet as needed 8h 30 days Active Norvasc 10 mg Orally Once a day 1 tablet 24h 90 days Active RESULTS No Results PROCEDURES Procedure Date Ordered Result Body Site [facility] VISIT ESTABLISHED PATIENT Feb 16, 2018 INSTRUCTIONS MEDICATIONS ADMINISTERED No Known Medications [...] for psychosis/mental illness , last one in [facility] 4 years ago
--- OUTSIDE RECORDS SUMMARY | 2018-09-02 13:13 | XMS REPORT ---
Author Author EDWINUMESH CASIANO Organization [facility] [address] Address [address] [place] [address] Care Team Providers Care Assembler Camper Name Role Phone UMESH PINEDA Unavailable PROBLEMS Type Condition ICD9-CM Code TIW24-PG Code Onset Dates Condition Status SNOMED Code Problem OAB (overactive bladder) N32.81 Active 939447159 Problem Depression with anxiety F41.8 Active 813750490 Problem Other seasonal allergic rhinitis J30.2 Active 321456161 Problem Chronic obstructive pulmonary disease, unspecified COPD type J44.9 Active 56310205 Problem Tobacco abuse Z72.0 Active 698160995 Problem Morbid obesity due to excess calories E66.01 Active 764328206 Problem Dyslipidemia E78.5 Active 904951430 Problem Hypothyroidism (acquired) E03.9 Active 270060694 Problem Essential hypertension I10 Active 39289868 Problem Diabetic polyneuropathy associated with type 2 diabetes mellitus E11.42 Active 235356855 Problem Type 2 diabetes mellitus with diabetic neuropathic arthropathy, 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 Active 749521432 Problem Type 2 diabetes mellitus without complication, without long-term current use of insulin E11.9 Active 065123090 Problem Paranoid schizophrenia F20.0 Active 23267883 Problem Chronic pain syndrome G89.4 Active 529754034 Problem Migraine without aura and without status migrainosus, not intractable G43.009 Active 396568940 Problem Gastroesophageal reflux disease, esophagitis presence not specified K21.9 Active 317472258 Problem Seasonal allergic rhinitis due to pollen J30.1 Active 35046805 Problem COPD exacerbation J44.1 Active 375922085 Problem Seasonal allergic rhinitis due to other allergic trigger J30.89 Active 946715068 Problem Schizoaffective disorder, depressive type F25.1 Active 21887931 Problem History of lupus Z87.39 Active 458630620 Problem Gastroesophageal reflux disease without esophagitis K21.9 Active 843336148 Problem Menopausal syndrome (hot flashes) N95.1 Active 236865506 Problem Other allergic rhinitis J30.89 Active 432727150 Problem Primary insomnia F51.01 Active 6501172 Problem DM neuro manif type II E11.49 Active 74881413 ALLERGIES No Information ENCOUNTERS Encounter Location Date Diagnosis [facility] [id number] [place] [address] 47150- 8408 Jan, [facility] [address] 49551- 9007 Jan, [facility] [address] 19768- 1626 Jan, [place] [address] 86699- 2654 Jan, Paranoid schizophrenia F20.0 [place] [address] 92344- 6520 Jan, [place] [address] 48350- 8828 Jan, Schizoaffective disorder, depressive type F25.1 [place] [address] 11020- 0023 Jan, [facility] [id number] [place] [address] 37365- 1953 Jan, Chronic obstructive pulmonary disease, unspecified COPD type J44.9 ; BMI 45.0-49.9, adult Z68.42 ; Type 2 diabetes mellitus without complication, without long-term current use of insulin E11.9 ; Hypothyroidism ( acquired) E03.9 ; Encounter for immunization Z23 ; Gastroesophageal reflux disease without esophagitis K21.9 ; Primary insomnia F51.01 and Acute nasopharyngitis J00 [facility] [id number] [place] [address] 11002- 6946 Dec, [facility] [id number] [place] [address] 05027- 1178 Dec, Schizoaffective disorder, depressive type F25.1 and BMI 45.0 -49.9, adult Z68.42 [facility] [id number] [place] [address] 26397- 5482 21 Dec, 2017 [facility] [id number] [place] [address] 55291- 0679 18 Dec, 2017 [facility] [id number] [place] [address] 79144- 2734 18 Dec, 2017 Acute non-recurrent frontal sinusitis J01.10 [facility] [id number] [place] [address] 72142- 6906 18 Dec, 2017 Acute non-recurrent frontal sinusitis J01.10 ; Weakness of left leg R29.898 ; At high risk for falls Z91.81 and BMI 45.0-49.9, adult Z68.42 [facility] [id number] [place] [address] 02298- 4349 17 Dec, 2017 [facility] [id number] [place] [address] 64802- 9721 Dec, [facility] [id number] [place] [address] 65370- 0330 Dec, Schizoaffective disorder, depressive type F25.1 [facility] [id number] [place] [address] 44985 -7196 Dec, Acute nasopharyngitis J00 [facility] [id number] [place] [address] 07891- 1012 05 Dec, 2017 Schizoaffective disorder, depressive type F25.1 [facility] [id number] [place] [address] 12508- 5073 Dec, [facility] [id number] [place] [address] 61264- 2706 Nov, Schizoaffective disorder, depressive type F25.1 and BMI 45.0 -49.9, adult Z68.42 [facility] [id number] [place] [address] 20131- 8998 Nov, [place] [address] [address] 6727 Nov, [place] [id number] [place] [address] 51377- 9870 Nov, Schizoaffective disorder, depressive type F25.1 [place] [id number] [place] [address] 04697- 9847 Nov, Well woman exam Z01.419 ; BMI 45.0-49.9, adult Z68.42 ; Screening breast examination Z12.31 and Dietary counseling and surveillance Z71.3 [place] [id number] [place] [address] 54561- 3536 Nov, Paranoid schizophrenia F20.0 [place] [address] [address]- 6839 Nov, Gastroesophageal reflux disease, esophagitis presence not specified K21.9 [place] [id number] [place] [address] 84615- 7065 Oct, Paranoid schizophrenia F20.0 [facility] [id number] [place] [address] Oct Chronic pain syndrome G89.4 and Schizoaffective disorder, depressive type F25.1 [place] [address] [address]- 5697 Oct, Chronic pain syndrome G89.4 and Schizoaffective disorder, depressive type F25.1 [place] [address] [address]- 9841 Oct, Type 2 diabetes mellitus without complication, without long- term current use of insulin E11.9 [place] [address] [place] [address] 40960- 7602 Oct, Essential hypertension I10 and DM neuro manif type II E11.49 [place] [id number] [place] [address] 07883- 9644 Oct, [facility] [id number] [place] [address] 43666- 9099 Oct, Schizoaffective disorder, depressive type F25.1 and BMI 45.0 -49.9, adult Z68.42 [facility] [id number] [place] [address] 84596- 4718 Oct, [facility] [id number] [place] [address] 70424- 7492 Oct, Paranoid schizophrenia F20.0 [place] [id number] [place] [address] 89007- 8344 Oct, Type 2 diabetes mellitus with diabetic neuropathic arthropathy, 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 ; Essential hypertension I10 ; Hypothyroidism (acquired) E03.9 ; Chronic obstructive pulmonary disease, unspecified COPD type J44.9 and Diabetic polyneuropathy associated with type 2 diabetes mellitus E11.42 [place] [id number] [place] [address] 73440- 8877 Sep, Paranoid schizophrenia F20.0 [place] [id number] [place] [address] 72838- 9464 Sep, Paranoid schizophrenia F20.0 and BMI 45.0-49.9, adult Z68.42 [place] [id number] [place] [address] 19267- 1150 Sep, Schizoaffective disorder, depressive type F25.1 [facility] [id number] [address]- 3454 Sep, [facility] [id number] [place] [address] 29327- 1648 Sep, Paranoid schizophrenia F20.0 [facility] [address] [address]- 6204 Sep, [facility] [id number] [place] [address] 67885- 5913 Sep, Hypothyroidism (acquired) E03.9 [facility] [id number] [place] [address] 92024- 7560 Sep, [facility] [address] 99548- 7205 August, Schizoaffective disorder, depressive type F25.1 [facility] [address] 93949- 3914 August, [facility] [id number] [place] [address] 87483- 7208 August, [facility] [address] 10521- 8633 August, [place] [address] 59555- 8997 August, Paranoid schizophrenia F20.0 [facility] [address] 97017- 3025 August, History of lupus Z87.39 and Chronic pain syndrome G89.4 [facility] [id number] [place] [address] 97393- 2540 August, [facility] [id number] [place] [address] 09597 -5035 August, Seasonal allergic rhinitis, unspecified trigger J30.2 and BMI 45.0-49.9, adult Z68.42 [facility] [id number] [place] [address] 88293- 5086 Jul, Schizoaffective disorder, depressive type F25.1 [facility] [address] 92273- 1423 Jul, [place] [address] 93251- 7087 Jul, Hypothyroidism (acquired) E03.9 [facility] [address] 26322- 8770 Jul, Chronic obstructive pulmonary disease, unspecified COPD type J44.9 and Type 2 diabetes mellitus without complication, without long-term current use of insulin E11.9 [place] [id number] [place] [address] 23700- 2015 Jul, Paranoid schizophrenia F20.0 [place] [address] 05642- 9643 Jun, Hypothyroidism (acquired) E03.9 and Seasonal allergic rhinitis due to pollen J30.1 [facility] [address] 14630 -1361 Jun, Shortness of breath at rest R06.02 ; COPD exacerbation J44.1 and BMI 45.0-49.9, adult Z68.42 [place] [address] 72239- 3307 Jun, [place] [address] 03503- 2183 Jun, Paranoid schizophrenia F20.0 ; Depression with anxiety F41.8 and BMI 45.0-49.9, adult Z68.42 [place] [id number] [place] [address] 38661- 9728 Jun, Schizoaffective disorder, depressive type F25.1 [facility] [id number] [place] [address] [id number] 13 Jun, 2017 Dental caries K02.9 [place] [id number] [place] [address] 37838- 7005 12 Jun, 2017 Paranoid schizophrenia F20.0 [place] [address] 46546- 8128 May, Migraine without aura and without status migrainosus, not intractable G43.009 ; DM neuro manif type II E11.49 and Type 2 diabetes mellitus without complication, without long-term current use of insulin E11.9 [place] [id number], [place] [address]- 7381 May, Migraine without aura and without status migrainosus, not intractable G43.009 [facility] [id number] [place] [address] 32084- 1380 May, Depression with anxiety F41.8 [facility] [id number] [place] [address] [id number] May, [facility] [id number] [place] [address] 55338- 1330 May, [place] [address] 15268- 6273 May, [place] [id number] [place] [address] 52026- 3021 May, Hypothyroidism (acquired) E03.9 [place] [id number] [place] [address] 37980- 8898 May, Paranoid schizophrenia F20.0 [facility] [id number] [place] [address] 18177- 9665 May, Type 2 diabetes mellitus without complication, [...] N32.81 and Controlled substance agreement signed Z79.899 [place] [id number] [place] [address] 72456- 4865 May, Controlled substance agreement signed Z79.899 [place] [address] [place] [address]- 0292 Apr, [facility] [id number] [place] [address] [id number] Apr, Dental examination Z01.20 [facility] [id number] [place] [address] 19115- 9456 Apr, Paranoid schizophrenia F20.0 [facility] [address] 92808- 1002 Apr, Hypertension, unspecified type I10 [facility] [id number] [place] [address] 38933- 4193 Apr, Paranoid schizophrenia F20.0 [facility] [id number] [place] [address] 82251- 0788 Apr, [facility] [id number] [place] [address] 54114- 1049 Apr, Tobacco abuse Z72.0 [facility] [id number] [place] [address] 24337- 9060 Apr, [facility] [id number] [place] [address] 39296- 3010 Mar, [facility] [id number] [place] [address] 00322- 9110 Mar, Paranoid schizophrenia F20.0 and BMI 45.0-49.9, adult Z68.42 [facility] [id number] [place] [address] 16597- 0402 Mar, Schizoaffective disorder, depressive type F25.1 [facility] [id number] [place] [address] 24231- 5629 14 Mar, 2017 [facility] [id number] [place] [address] 18900- 0027 Mar, Hypothyroidism, unspecified type E03.9 [facility] [id number] [place] [address] 91769- 1083 Mar, Schizoaffective disorder, depressive type F25.1 [facility] [id number] [place] [address] 24351 -6166 Feb, Gastroenteritis K52.9 and BMI 45.0-49.9, adult Z68.42 [facility] [id number] [place] [address] 11111- 8854 Feb, [facility] [address] 11484- 1438 Feb, [place] [id number] [place] [address] 36545- 7079 Feb, [facility] [id number] [place] [address] 69583- 2635 Feb, [place] [id number] [place] [address] 33929- 0307 Feb, Paranoid schizophrenia F20.0 [facility] [id number] [place] [address] 32937- 3984 Feb, Gastroesophageal reflux disease without esophagitis K21.9 ; Other seasonal allergic rhinitis J30.2 ; Other allergic rhinitis J30.89 ; Tobacco abuse Z72.0 and BMI 40.0-44.9, adult Z68.41 [place] [id number] [place] [address] 72646- 1564 Feb, Onychomycosis B35.1 ; Callus of foot L84 and DM neuro manif type II E11.49 [place] [id number] [place] [address] 77177- 9777 Jan, Chronic allergic rhinitis J30.9 [place] [id number] [place] [address] 56128- 0592 Jan, [facility] [id number] [place] [address] 76685- 1002 Jan, Schizoaffective disorder, depressive type F25.1 [place] [id number] [place] [address] 87038- 2371 10 Jan, 2017 [facility] [id number] [place] [address] 24280 -8466 07 Jan, 2017 Sore throat J02.9 and Seasonal allergic rhinitis due to other allergic trigger J30.89 [facility] [id number] [place] [address] 94522- 3496 Jan, [facility] [id number] [place] [address] 69996- 5802 Jan, [facility] [id number] [place] [address] 98069 -5068 Jan, Chronic allergic rhinitis J30.9 [facility] [id number] [place] [address] 30499- 4236 27 Dec, 2016 Paranoid schizophrenia F20.0 ; Primary insomnia F51.01 and Schizoaffective disorder, depressive type F25.1 [place] [id number] [place] [address] 66645- 0941 Dec, Chronic pain syndrome G89.4 ; Cervicalgia of occipito- atlanto-axial region M54.2 ; Menopausal syndrome (hot flashes) N95.1 and Encounter for immunization Z23 [facility] [id number] [place] [address] 02442- 4603 14 Dec, 2016 [place] [id number] [place] [address] 40985- 6448 13 Dec, 2016 [place] [id number] [place] [address] 19948- 4594 08 Dec, 2016 Paranoid schizophrenia F20.0 [place] [id number] [place] [address] 45084- 5449 Dec, Schizoaffective disorder, depressive type F25.1 [place] [id number] [place] [address] 03395- 5901 Nov, Hypothyroidism, unspecified type E03.9 [facility] [address], [place] [address]4427 Nov, Acute seasonal allergic rhinitis due to other allergen J30.89 [facility] [id number] [place] [address] 49447- 1376 Nov, [place] [id number] [place] [address] 41303- 5340 Nov, Hypothyroidism, unspecified type E03.9 and Other elevated white blood cell (WBC) count D72.828 [place] [id number] [place] [address] 33888- 4217 Nov, Schizoaffective disorder, depressive type F25.1 [place] [id number] [place] [address] 33917- 0538 Nov, Paranoid schizophrenia F20.0 [place] [id number] [place] [address] 82849- 6241 Nov, Type 2 diabetes mellitus without complication, without long- term current use of insulin E11.9 ; Morbid obesity due to excess calories E66.01 and Chronic pain syndrome G89.4 [place] [id number] [place] [address] 90938- 6739 Oct, Paranoid schizophrenia F20.0 [place] [id number] [place] [address] 88624- 9765 Oct, [place] [id number] [place] [address] 21923- 4588 Oct, Schizoaffective disorder, depressive type F25.1 [place] [id number] [place] [address] 26490- 0866 Oct, Hypothyroidism, unspecified type E03.9 and Other elevated white blood cell (WBC) count D72.828 [place] [id number] [place] [address] 64861- 0625 Oct, Morbid obesity due to excess calories E66.01 ; Chronic obstructive pulmonary disease, unspecified COPD type J44.9 ; History of lupus Z87.39 ; Hypothyroidism, unspecified type E03.9 ; Gastroesophageal reflux disease without esophagitis K21.9 ; Primary insomnia F51.01 and Chronic pain syndrome G89.4 [facility] [address], [place] [address]- 4671 Sep, [facility] [id number] [place] [address] 34477- 0814 Sep, [facility] [id number] [place] [address] 25983- 6817 Sep, [facility] [id number] [place] [address] 48547- 8554 Sep, Paranoid schizophrenia F20.0 [facility] [id number] [place] [address] 88341- 2171 Sep, [facility] [id number] [place] [address] 19505- 4249 Sep, Paranoid schizophrenia F20.0 [facility] [id number] [place] [address] 64053- 6139 Sep, [facility] [id number] [place] [address] 29426- 7289 August, Paranoid schizophrenia F20.0 [facility] [address], [place] [address]- 9541 Jul, [facility] [id number] [place] [address] 79148- 8035 Jul, Type 2 diabetes mellitus without complication, without long- term current use of insulin E11.9 ; Morbid obesity due to excess calories E66.01 ; Depression with anxiety F41.8 ; Hypothyroidism, unspecified type E03.9 ; Seasonal allergic rhinitis due to other allergic trigger J30.89 ; Pain, dental K08.89 and Gastroesophageal reflux disease without esophagitis K21.9 [facility] [id number] [place] [address] [id number] Jul, Dental examination Z01.20 [place] [id number] [place] [address] 50258- 8445 07 Jul, 2016 Paranoid schizophrenia F20.0 [place] [id number] [place] [address] 37024- 4444 13 Jun, 2016 Paranoid schizophrenia F20.0 and Depression with anxiety F41.8 [place] [id number] [place] [address] 80968- 4768 10 Jun, 2016 Paranoid schizophrenia F20.0 and Depression with anxiety F41.8 [place] [id number] [place] [address] 17678- 3299 09 Jun, 2016 [place] [id number] [place] [address] 87085- 1132 Jun, [facility] [place] [id number] [place] [address] 95624 -2090 Jun, Seasonal allergic rhinitis due to other allergic trigger J30.89 [facility] [place] [id number] [place] [address] [phone] May, Sore throat J02.9 ; Other viral agents as the cause of diseases classified elsewhere B97.89 and Acute upper respiratory infection, unspecified J06.9 [place] [address] [id number] [place] [address] [phone] May, Paranoid schizophrenia F20.0 and Depression with anxiety F41.8 [place] [address] [address] [place] [id number] [place] [address] 89711- [phone] Apr, Other seasonal allergic rhinitis J30.2 [place] [address] [address] [place] [id number] [place] [address] 26154- [phone] Apr, Paranoid schizophrenia F20.0 and Depression with anxiety F41.8 [facility] [id number] [place] [address] [phone] Apr, Bronchitis J40 and Sore throat J02.9 [facility] [id number] [place] [address] 52932- [phone] Apr, Type 2 diabetes mellitus without complication, without long- term current use of insulin E11.9 [facility] [id number] [place] [address] [phone] -[phone] Apr, Bronchitis J40 [facility] [address] [place] [id number] [place] [address] [phone]- [phone] Apr, [facility] [address] [place] [id number] [place] [address] 64015- [phone] Apr, [facility] [address] [place] [id number] [place] [address] [phone]- [phone] Mar, Type 2 diabetes mellitus without complication, [...] R60.9 and Other seasonal allergic rhinitis J30.2 [place] [address] [place] [id number] [place] [address] [phone] Mar, Paranoid schizophrenia F20.0 and Depression with anxiety F41.8 [facility] [address] [place] [id number] [place] [address] 50765- [phone] Feb, [place] [address] [place] [id number] [place] [address] [phone] Feb, [place] [address] [place] [id number] [place] [address] [phone] Feb, [place] [address] [place] [id number] [place] [address] 68147- [phone] Feb, [place] [address] [place] [id number] [place] [address] 11716- 8902 Feb, Type 2 diabetes mellitus without complication, without long- term current use of insulin E11.9 ; ARIAS on CPAP G47.33 and Preoperative evaluation to rule out surgical contraindication Z01.818 [facility] [id number] [place] [address] 84540- 5853 09 Feb, 2016 Paranoid schizophrenia F20.0 and Depression with anxiety F41.8 [facility] [id number] [place] [address] 46269- 2678 Jan, [facility] [id number] [place] [address] 39367- 5777 18 Jan, 2016 Paranoid schizophrenia F20.0 and Depression with anxiety F41.8 [facility] [id number] [place] [address] 52007- 6889 Jan, [facility] [id number] [place] [address] 65094- 8484 Jan, Muscle strain T14.8 [facility] [id number] [place] [address] 74053- 1413 10 Jan, 2016 Paranoid schizophrenia F20.0 [facility] [id number] [place] [address] 71898- 6368 Jan, [facility] [id number] [place] [address] 74785- 4282 Jan, Paranoid schizophrenia F20.0 and Depression with anxiety F41.8 [facility] [id number] [place] [address] 23525- 8790 Jan, [facility] [id number] [place] [address] 10569- 7497 Jan, [facility] [id number] [place] [address] 09099- 7763 Dec, [facility] [id number] [place] [address] 67455- 6885 Dec, Paranoid schizophrenia F20.0 [facility] [id number] [address] 0908 16 Dec, 2015 Paranoid schizophrenia F20.0 and Depression with anxiety F41.8 [facility] [id number] [place] [address] 09693- 7755 Nov, [facility] [id number] [place] [address] 18524- 8833 Nov, Paranoid schizophrenia F20.0 [facility] [id number] [place] [address] 89493- 5760 Nov, Paranoid schizophrenia F20.0 and Depression with anxiety F41.8 [facility] [id number] [place] [address] 70761- 1753 Nov, Type 2 diabetes mellitus without complication, without long- term current use of insulin E11.9 ; Paranoid schizophrenia F20.0 ; Chronic obstructive pulmonary disease, unspecified COPD type J44.9 ; Morbid obesity due to excess calories E66.01 and Parkinsonian tremor G20 [facility] [facility] [id number] [place] [address] 11297- 7518 Nov, [facility] [id number] [place] [address] 43491- 7069 Oct, Paranoid schizophrenia F20.0 [facility] [id number] [place] [address] 33087- 3608 Oct, Paranoid schizophrenia F20.0 [facility] [id number] [place] [address] 73653- 8159 Oct, Paranoid schizophrenia F20.0 and Depression with anxiety F41.8 [facility] [facility] [id number] [place] [address] 54608- 5602 Oct, [facility] [id number] [place] [address] 70848- 8898 Oct, Paranoid schizophrenia F20.0 and Depression with anxiety F41.8 [facility] [id number] [place] [address] 72168- 1725 Oct, Nasal sore J34.89 [facility] [id number] [place] [address] 02429- 7560 Oct, Type 2 diabetes mellitus without complication, without long- term current use of insulin E11.9 ; Depression with anxiety F41.8 ; Hypothyroidism, unspecified type E03.9 and History of lupus Z87.39 [place] [facility] [address] 25467- 5464 Oct, [facility] [id number] [place] [address] 72901- 5264 Oct, Type 2 diabetes mellitus without complication, [...] edema R60.9 and History of lupus Z87.39 [facility] [id number] [place] [address] 15873- 2493 Feb, [facility] [id number] [place] [address] 14946- 7867 Jan, [facility] [id number] [place] [address] 49670- 7866 Jan, [facility] [id number] [place] [address] 66312- 6565 Jan, [facility] [id number] [place] [address] 61360- 1079 Dec, [facility] [id number] [place] [address] 67833- 4292 Nov, [place] [address] [place] [address]- 4454 Nov, [facility] [id number] [place] [address]- 4510 Oct, [facility] [id number] [place] [address]- 1085 Oct, [facility] [id number], [place] [address]- 2346 Oct, [facility] [id number] [address]- 1170 Sep, Allergic rhinitis 477.9 [facility] [id number] [place] [address], [place] [address]- 7829 Sep, Rhinitis, allergic 477.9 [facility] [id number] [place] [address]- 0492 Sep, Rhinitis, allergic 477.9 [facility] [id number], [place] [address]- 3427 Sep, [facility] [id number] [place] [address]- 7591 August, [facility] [id number], [place] [address]- 1766 August, [facility] [id number], [place] [address]- 9124 August, [facility] [place] [facility] [id number], [place] [address]- 2362 28 Jul, 2014 [facility] [place] [facility] [id number] [place] [address]- 2304 14 Jul, 2014 [facility] [place] [facility] [address] [address]- 0988 13 Jul, 2014 [facility] [place] [facility] [id number] 1991 Jun, [facility] [place] [facility] [id number] [place] [address], [place] [address]- 5155 16 Jun, 2014 [facility] [place] [facility] [address] [id number] [place] [address]- 4242 12 Jun, 2014 [facility] [place] [facility] [address] [id number] [place] [address]- 1172 12 Jun, 2014 [facility] [place] [facility] [address] [id number] [place] [address]- 7661 Jun, 2014 [facility] [place] [facility] [address] [id number] [place] [address]- 8699 11 Jun, 2014 [facility] [place] [facility] [address] [id number] [place] [address]- 7912 Jun, [facility] [place] [facility] [address] [id number] [place] [address]- 1352 Jun, [facility] [place] [facility] [address] [id number] [place] [address]- 0272 May, 2014 [facility] [place] [facility] [address] [id number] [place] [address]- 6832 May, [facility] [place] [facility] [address] [id number] [place] [address]- 9222 May, [facility] [place] [facility] [address] [facility] [id number] [place] [address]- 0204 May, [facility] [place] [facility] [address] [id number] [place] [address]- 2613 Apr, [facility] [place] [facility] [address] [id number] [place] [address]- 5225 Mar, [facility] [place] [facility] [address] [id number] [place] 6383 Mar, [facility] [place] [facility] [address] [id number] [place] [address]- 0590 Mar, [facility] [place] [facility] [address] [facility] [id number] [place] [address]- 5160 Mar, [facility] [place] [facility] [address] [id number] [place] 6373 Mar, [facility] [place] [facility] [address] [id number] [place] 5520 Mar, [facility] [place] [facility] [address] [id number] [place] [address]- 5537 Mar, [facility] [place] [facility] [address] [id number] [place] 6122 Mar, [facility] [place] [facility] [address] [id number] [place] 1920 Mar, [facility] [place] [facility] [address] [id number] [place] [address]- 9026 Feb, [facility] [place] [facility] [address] [id number] [place] [address]- 7446 Feb, [facility] [place] [facility] [address] [id number] [place] [address]- 6952 Feb, [facility] [place] [facility] [address] [id number] [place] [address]- 3657 Feb, [facility] [place] [facility] [address] [id number] [place] [address]- 8230 Feb, [facility] [place] [facility] [address] [id number] [place] [address]- 7739 Feb, [facility] [place] [facility] [address] [id number] [address]- 2893 Feb, [facility] [place] [facility] [address] [id number] [place] [address]- 3038 Feb, [facility] [place] [facility] [address] [id number] [place] [address]- 8651 Jan, [facility] [place] [facility] [address] [id number] [place] 5999 Jan, [facility] [place] [facility] [address] [id number] [address]- 8417 16 Jan, 2014 [facility] [place] [facility] [address] [id number] [place] [address]- 6766 16 Jan, 2014 [facility] [place] [facility] [address] [id number] [place] [address]- 6297 15 Jan, 2014 [facility] [place] [facility] [address] [id number] [place] [address]- 2292 15 Jan, 2014 [facility] [place] [facility] [address] [id number] [place] [address]- 3948 14 Jan, 2014 [facility] [place] [facility] [address] [id number] [place] [address]- 8513 14 Jan, 2014 [facility] [place] [facility] [address] [id number] [place] [address]- 0373 14 Jan, 2014 [facility] [place] [facility] [address] [id number] [place] [address]- 3414 14 Jan, 2014 [facility] [place] [facility] [address] [id number] [place] [address]- 3619 18 Dec, 2013 [facility] [place] [facility] [address] [id number] [place] [address]- 5997 18 Dec, 2013 [facility] [place] [facility] [address] [id number] [place] [address]- 4911 10 Dec, 2013 [facility] [place] [facility] [address] [id number] [place] [address]- 4717 Dec, [facility] [place] [facility] [address] [id number] [place] [address]- 1720 Nov, [facility] [place] [facility] [address] [id number] [place] [address]- 8380 Nov, [facility] [place] [facility] [address] [id number] [place] [address]- 2573 Nov, [facility] [place] [facility] [address] [id number] [place] [address]- 8325 Nov, [facility] [place] [facility] [address] [id number] [place] [address]- 4032 Nov, [facility] [place] [facility] [address] [id number] [place] [address]- 0446 Oct, [facility] [place] [facility] [address] [id number] [place] [address]- 8076 Oct, [facility] [place] [facility] [address] [id number] [place] [address]- 5147 Oct, [facility] [place] [facility] [address] [id number] [place] [address]- 7036 Oct, [facility] [place] [facility] [address] [id number] [place] [address]- 4700 Sep, [facility] [place] [facility] [address] [id number] [place] [address]- 5740 Sep, [facility] [place] [facility] [address] [id number] [place] [address]- 9056 Sep, [facility] [place] [facility] [address] [id number] [place] [address]- 3158 Sep, [facility] [place] [facility] [address] [id number] [place] [address]- 7514 Sep, [facility] [place] [facility] [address] [id number] [place] [address]- 4337 Sep, [facility] [place] [facility] [address] [id number] [place] [address]- 1973 Sep, [facility] [place] [facility] [address] [id number] [place] [address]- 9627 Sep, [facility] [place] [facility] [address] [id number] [place] [address]- 4598 August, [facility] [place] [facility] [address] [id number] [place] [address]- 3006 August, [facility] [place] [facility] [address] [id number] [place] [address]- 2122 August, [facility] [address] [id number] [place] [address]- 2412 August, [facility] [place] [facility] [address] [id number] [place] [address]- 1029 August, [facility] [place] [facility] [address] [id number] [place] [address]- 4353 August, [facility] [place] [facility] [address] [id number] [place] [address]- 5834 August, [facility] [place] [facility] [address] [id number] [place] [address]- 0700 Jul, [facility] [place] [facility] [address] [id number] [place] [address]- 3364 Jul, [facility] [place] [facility] [address] [id number] [place] [address]- 8336 Jul, [facility] [place] [facility] [address] [id number] [place] [address]- 6921 Jul, [facility] [place] [facility] [address] [id number] [place] [address]- 2284 Jul, [facility] [place] [facility] [address] [id number] [place] [address]- 7832 Jul, [facility] [place] [facility] [address] [id number] [place] [address]- 8773 Jul, [facility] [place] [facility] [address] [id number] [place] [address]- 9592 Jul, [facility] [place] [facility] [address] [id number] [place] [address]- 8293 Jul, [facility] [place] [facility] [address] [id number] [place] [address]- 7417 Jul, [facility] [place] [facility] [address] [id number] [place] [address]- 9133 Jul, [facility] [place] [facility] [address] [id number] [place] [address]- 8907 Jul, [facility] [place] [facility] [address] [id number] [place] [address]- 7769 Jun, [facility] [place] [facility] [address] [id number] [place] 9377 Jun, [facility] [place] [facility] [address] [id number] [place] [address]- 6572 Jun, [facility] [place] [facility] [address] [id number] [place] [address]- 2565 Jun, [facility] [place] [facility] [address] [id number] [place] [address]- 8014 Jun, [facility] [place] [facility] [address] [id number] [place] [address]- 4225 May, [facility] [place] [facility] [address] [id number] [place] [address]- 5706 May, [facility] [place] [facility] [address] [id number] [place] [address]- 2296 May, [facility] [place] [facility] [address] [id number] [place] [address]- 2580 May, [facility] [place] [facility] [address] [facility] [id number] [place] [address]- 3396 May, [facility] [place] [facility] [address] [id number] [place] [address]- 6730 May, [facility] [place] [facility] [address] [id number] [place] [address]- 8122 May, [facility] [place] [facility] [address] [id number] [place] [address]- 0791 May, [facility] [place] [facility] [address] [facility] [id number] [place] [address]- 0440 Mar, [facility] [place] [facility] [address] [facility] [id number] [place] [address]- 1528 Mar, [facility] [place] [facility] [address] [id number] [place] [address]- 2413 Mar, [facility] [place] [facility] [address] [id number] [place] [address]- 0593 Mar, [facility] [place] [facility] [address] [id number] [place] 8093 Mar, [facility] [place] [facility] [address] [id number] [place] [address]- 2755 Mar, [facility] [place] [facility] [address] [id number] [place] [address]- 7123 Feb, [facility] [place] [facility] [address] [id number] [place] [address]- 5897 Feb, [facility] [place] [facility] [address] [id number] [place] [address]- 7649 Jan, [facility] [place] [facility] [address] [id number], [place] [address]- 1019 Jan, [facility] [place] [facility] [address] [id number], [place] [address]- 1378 Jan, [facility] [place] [facility] [address] [id number], [place] [address]- 5552 Jan, [facility] [place] [facility] [address] [id number], [place] [address]- 0318 Jan, [facility] [place] [facility] [address] [id number], [place] [address]- 8926 Jan, [facility] [place] [facility] [address] [id number], [place] [address]- 0602 Jan, [facility] [place] [facility] [address] [id number], [place] [address]- 6980 Jan, [facility] [place] [facility] [address] [id number], [place] [address]- 7844 Jan, [facility] [place] [facility] [address] [id number] [place] [address]- 0125 Jan, [facility] [address] [id number] [place] [address]- 3201 Dec, [facility] [place] [facility] [address] [id number] [place] [address]- 4883 Nov, [facility] [place] [facility] [address] [id number] [place] [address] 2546 Nov, [facility] [place] [facility] [address] [id number] [place] [address] 2547 Nov, [facility] [place] [facility] [address] [id number] [place] [address]- 7257 Oct, [facility] [place] [facility] [address] [id number] [place] [address]- 4162 Oct, [facility] [place] [facility] [address] [id number] [place] [address]- 0826 August, [facility] [place] [facility] [address] [id number] [place] [address]- 1597 Apr, [facility] [place] [facility] [address] [id number] [place] [address]- 4570 Apr, [facility] [place] [facility] [address] [id number] [place] [address]- 1126 Feb, [facility] [place] [facility] [address] [id number] [place] [address]- 7956 Feb, [facility] [place] [facility] [address] [id number] [place] [address]- 0786 Dec, [facility] [place] [facility] [address] [id number] [place] [address]- 3370 Dec, [facility] [place] [facility] [address] [id number] [place] [address]- 1193 Oct, [facility] [place] [facility] [address] [id number] [place] [address]- 1079 Oct, [facility] [place] [facility] [address] [facility] [id number] [place] [address]- 2217 Oct, [facility] [address] [facility] [id number] [place] [address]- 3374 Jul, IMMUNIZATIONS Vaccine Route Administration Date Status INVEGA (PT'S OWN) IM Intramuscular Feb 03, 2018 Administered SOCIAL HISTORY Never Assessed REASON FOR VISIT Injection PLAN OF CARE VITAL SIGNS MEDICATIONS Unknown Medications RESULTS No Results PROCEDURES Procedure Date Ordered Result Body Site INVEGA (PT'S OWN) Feb 03, 2018 THER/PROPH/DIAG INJ, SC/IM Feb 03, 2018 INSTRUCTIONS MEDICATIONS ADMINISTERED No Known [...] for psychosis/mental illness , last one in [facility] 4 years ago
--- NOTE | 2018-09-02 13:14 | ED Lower Extremity ---
General Stated Complaint: FALL Source: patient, other (boyfriend) Exam Limitations: no limitations History of Present Illness Date Seen by Provider: September 02, 2018 Time Seen by Provider: 12:56 Initial Comments Patient presented the ER by EMS with chief complaint of a fall just prior to arrival. She was down the ground no more than 10 minutes she said. She scooted over the phone and called the ambulance. She did not strike her head nor lose consciousness. She said she got little off balance because of the hydrocodone she took this morning and that precipitated her fall. She twisted her ankle is having significant pain in her ankle. She took a hydrocodone this morning at 4: 00 and EMS gave her 50 g of fentanyl en route. Her vitals are fine her blood sugars 108. She has a history of schizophrenia and lupus. She's never had surgery or fracture or injury to her ankle before. She has good feeling in her foot. EMS reports she had good pulse for some pedal and marked it with a pen. Patient was taking the hydrocodone because yesterday she had carpal tunnel syndrome by Dr. Fontenot on her left wrist. She does not routinely take opiates. Last known oral intake 0 900. Allergies and Home Medications Allergies Coded Allergies: Penicillins (Unverified Allergy, Unknown, RASH, 12/01/13) Sulfa (Sulfonamide Antibiotics) (Verified Allergy, Unknown, RASH, 12/01/13) Home Medications Amlodipine Besylate 10 Mg Tablet, 10 MG PO DAILY, (Reported) Estrogens Conjugated 30 Gm Cr, 1 GM VG TU, WED, (Reported) Hydrocodone Bit/Acetaminophen 1 Ea Tab, 1-2 EA PO Q4H PRN for PAIN Prescribed by: EN AGOSTO on 12/07/13 1513 Hydroxyzine Pamoate 50 Mg Capsule, 50 MG PO BID, (Reported) Levothyroxine Sodium 150 Mcg Tablet, 150 MCG PO DAILY, (Reported) Loxapine Succinate 25 Mg Capsule, 25 MG PO DAILY PRN for ANXIETY, (Reported) Mupirocin 22 Gm Oint, NS BID, (Reported) Naproxen 500 Mg Tablet, 500 MG PO BID PRN for PAIN, (Reported) Pravastatin Sodium 20 Mg Tablet, 20 MG PO HS, (Reported) Sertraline Hcl 100 Mg Tablet, 150 MG PO DAILY, (Reported) TAKES 1 & 1/2 (100MG) TABLETS DAILY Spironolactone 50 Mg Tablet, 50 MG PO DAILY, (Reported) Trazodone Hcl 150 Mg Tablet, 150 MG PO HS, (Reported) Triamcinolone Acet 15 Gm Cr, TOP BID PRN for RASH, (Reported) Triamcinolone Acetonide 5 Gm Paste..gm., TOP TID PRN for TOUNGE SORE, (Reported) [Breo Ellipta] , 1 PUFF INH EVERY EVENING, (Reported) Patient Home Medication List Home Medication List Reviewed: Yes Review of Systems Constitutional: No chills, No fever EENTM: No ear discharge, No ear pain Respiratory: No cough, No short of breath Cardiovascular: No chest pain, No edema Gastrointestinal: No abdominal pain, No nausea, No vomiting Genitourinary: No discharge, No dysuria : No Musculoskeletal: see HPI; No back pain; joint pain Past Rpljbno-Tvrjgq-Cgtztk Hx Patient Social History Alcohol Use: Denies Use Recreational Drug Use: No Smoking Status: Current Everyday Smoker Type Used: Cigarettes Immunizations Up To Date Date of Pneumonia Vaccine: Jan 24, 2010 Past Medical History COPD Anxiety Family Medical History Arthritis 19 FATHER 19 MOTHER Asthma 19 MOTHER Colon cancer 19 MOTHER Diabetes mellitus G8 SISTER Myocardial infarction G8 BROTHER Thyroid disease 19 MOTHER No Family History of: AIDS Abdominal aortic aneurysm Alcoholism Completed stroke Drug abuse Gastroenteritis Hypertension Parkinson's disease Prostate cancer Psychosocial problem Respiratory disorder Seizure disorder Severe allergy Physical Exam Vital Signs Vital Signs - First Documented 09/02/18 12:56 Pulse 82 Resp 22 B/P (MAP) 123/76 (92) Pulse Ox 92 O2 Delivery Room Air Capillary Refill : Height, Weight, BMI Height: 0'60.00" Weight: 225lbs. 0.0oz. 102.657612zb; 43.9 BMI Method: General Appearance: WD/WN, moderate distress HEENT: PERRL/EOMI, normal ENT inspection, TMs normal, pharynx normal, other ( atraumatic head without Sánchez sign or raccoon eyes) Neck: non-tender, full range of motion, supple, normal inspection Cardiovascular: normal peripheral pulses, regular rate, rhythm, other (good dorsal pedal pulse on the right foot 2 out of 4 symmetric with left foot) Respiratory: lungs clear, normal breath sounds, no respiratory distress, no accessory muscle use Gastrointestinal: normal bowel sounds, non tender, no organomegaly Ankles: left ankle non-tender, left ankle normal inspection, left ankle normal range of motion, left ankle no evidence of injury; right ankle abrasions/ lacerations (minor medial malleoli), right ankle bone tenderness, right ankle deformity (the ankle is obviously dislocated and externally rotated), right ankle ecchymosis (mild), right ankle pain, right ankle soft tissue tenderness Neurologic/Tendon: normal sensation, responds to pain Neurologic/Psychiatric: no motor/sensory deficits, alert, oriented x 3 Skin: warm/dry, ecchymosis (small medial malleoli ecchymoses) Progress/Results/Core Measures Results/Orders My Orders Orders - JENI ROD Hydromorphone Injection (Dilaudid Inject (09/02/18 13:30) Ketorolac Injection (Toradol Injection) (09/02/18 13:30) Chest 1 View, Ap/Pa Only (09/02/18 13:40) Ketorolac Injection (Toradol Injection) (09/02/18 13:45) Hydromorphone Injection (Dilaudid Inject (09/02/18 13:45) Ankle, Right, 2 Views (09/02/18 14:01) Ankle, Right, 2 Views (09/02/18 14:03) Ct Head/Cervical Spine Wo (09/02/18 14:09) Catheter(Urinary) Insert & Ass 03,15 (09/02/18 15:11) Cho 60g/M 1snack (16-2000 Tod) (09/02/18 Lunch) Medications Given in ED Current Medications Medications Dose Ordered Sig/Nasreen Route Start Time Stop Time Status Last Admin Dose Admin Etomidate 10 mg ONCE ONCE IV 09/02/18 14:15 09/02/18 14:16 DC 09/02/18 14:16 10 MG Fentanyl Citrate 75 mcg ONCE ONCE IVP 09/02/18 13:15 09/02/18 13:16 DC 09/02/18 13:20 75 MCG Hydromorphone HCl 0.5 mg ONCE ONCE IV 09/02/18 13:45 09/02/18 13:46 DC 09/02/18 13:33 0.5 MG Ketorolac Tromethamine 30 mg ONCE ONCE IVP 09/02/18 13:45 09/02/18 13:46 DC 09/02/18 13:33 30 MG Vital Signs/I&O 09/02/18 09/02/18 09/02/18 09/02/18 12:56 14:15 14:15 14:30 Pulse 82 76 76 Resp 22 27 20 B/P (MAP) 123/76 (92) 105/70 121/60 Pulse Ox 92 100 99 O2 Delivery Room Air OxyMask OxyMask OxyMask O2 Flow Rate 6.00 6.00 09/02/18 14:30 O2 Delivery OxyMask O2 Flow Rate 6.00 6.00 Progress Progress Note #1: Time: 13:14 Progress Note 75 g of fentanyl. Put her on some oxygen because she is 89% on room air but she is alert and oriented. Suspect the opiates are contributing. Plain films of the ankle and chest. Progress Note #2: Time: 13:31 Progress Note Overt fibular fracture. She still having some intermittent asthma pains really give her half a milligram Dilaudid and 30 of Toradol. Progress Note #3: Time: 14:32 Progress Note Status post reduction there is obvious medial malleolar fracture and the joint was reduced. She is feeling much better with her pain. We have her splinted a post x-ray was obtained and will talk to Dr. Leon again to have him review the images. Previously his plan was to potentially put her up in the hospital as a medical admit and potential surgery in the morning. Initial ECG Impression Date: September 02, 2018 Initial ECG Impression Time: 15:05 Initial ECG Rate: 74 Initial ECG Rhythm: Normal Sinus Initial ECG Intervals: Normal Initial ECG Impression: Normal Comment No ST elevation or depression. No dysrhythmia. Diagnostic Imaging Diagonstic Imaging: Xray Plain Films/CT/US/NM/MRI: chest (1v) Comments [facility] [place], [place] NAME: WILL AMARO MED REC#: [id number] PT STATUS: REG ER : 1960 PHYSICIAN: JENI ROD MD ADMIT DATE: 09/02/18/ER Draft Date of Exam:09/02/18 CHEST 1 VIEW, AP/PA ONLY INDICATION: Fall. TIME OF EXAM: 1:49 PM COMPARISON: Comparison is made with prior chest from 05/12/2016. FINDINGS: The heart is enlarged. Lungs appear to be clear. No infiltrate or failure is seen. No effusion or pneumothorax is detected. IMPRESSION: Cardiomegaly. No acute cardiopulmonary processes detected. Dictated on workstation # [id number] Dict: 09/02/18 1414 Trans: 09/02/18 1424 [id number] Interpreted by: LON MITCHELL MD Electronically signed by: Reviewed: Reviewed by Mo Diagonstic Imaging: Xray Plain Films/CT/US/NM/MRI: ankle Comments 2 view ankle is all patient was able to tolerate. Overt fibular shaft fracture. [facility] [place] NAME: WILL AMARO MED REC#: [id number] PT STATUS: REG ER : 1960 PHYSICIAN: JENI ROD MD ADMIT DATE: 09/02/18/ER Draft Date of Exam:09/02/18 ANKLE, RIGHT, 2 VIEWS INDICATION: Fall. TIME OF EXAM: 01:17 p.m. Two views right ankle were obtained. An AP view was not performed. Only lateral and oblique was performed. There is a fracture of the distal fibula in a supra-syndesmotic location. There appears to be an ankle dislocation although imaging is limited. The talus appears to be anteriorly positioned in relation to the distal tibia. The distal tibial fracture suspected as well which may involve the posterior malleolus. There is a plantar calcaneal spur. Midfoot alignment is unremarkable. IMPRESSION: Ankle fracture dislocation. Dictated on workstation # [id number] Dict: 09/02/18 1412 Trans: 09/02/18 1420 [facility] [id number] Interpreted by: LON MITCHELL MD Electronically signed by: Reviewed: Reviewed by Mo Diagonstic Imaging: Xray Plain Films/CT/US/NM/MRI: ankle (right) Comments Postreduction is reduced with medial malleolar fracture and same fibula fracture seen before. [facility] [place] NAME: WILL AMARO MED REC#: [id number] PT STATUS: REG ER : 1960 PHYSICIAN: JENI ROD MD ADMIT DATE: 09/02/18/ER Draft Date of Exam:09/02/18 ANKLE, RIGHT, 2 VIEWS INDICATION: Postreduction right ankle fracture dislocation. Correlation made with ankle radiograph from earlier same day. AP and lateral views were obtained. There has been significant improvement in the ankle fracture dislocation, postreduction. There is a fracture of the distal fibula in the suprasyndesmotic location. Only minimal lateral displacement of the distal fracture fragment is seen. There is also a fracture involving the distal tibia in the region of the medial malleolus. There is improved tibiotalar alignment, however, there is marked widening of the medial clear space consistent with ligamentous injury. IMPRESSION: Improvement in right ankle alignment, status post reduction. There is now overlying cast. There are fibular and tibial fractures. Medial clear space is significantly widened consistent with ligamentous injury. Dictated on workstation # [id number] Dict: 09/02/18 1435 Trans: 09/02/18 1444 [facility] [id number] Interpreted by: LON MITCHELL MD Electronically signed by: Reviewed: Reviewed by Mo Diagonstic Imaging: CT (noncontrast) Plain Films/CT/US/NM/MRI: c-spine, head Comments No acute intracranial hemorrhage, mass effect, shift or tumor. No calvarial fracture. C-spine fracture, subluxation or malalignment. NAME: WILL AMARO [facility] REC#: [id number] PHYSICIAN: JENI ROD MD CC: LON MITCHELL MD; JENI ROD Page 2 of 2 RADIOLOGY REPORT [facility] [place] CC: LON MITCHELL MD; JENI ROD Page 1 of 2 RADIOLOGY REPORT NAME: WILL AMARO MED REC#: [id number] PT STATUS: REG ER : 1960 PHYSICIAN: JENI ROD MD ADMIT DATE: 09/02/18/ER Signed Date of Exam: 09/02/18 CT HEAD/CERVICAL SPINE WO PROCEDURE: CT head and CT cervical spine without contrast. TECHNIQUE: Multiple contiguous axial images were obtained through the brain and cervical spine without the use of intravenous contrast. Sagittal and coronal reformations through the cervical spine were then performed. Auto Exposure Controls were utilized during the CT exam to meet ALARA standards for radiation dose reduction. INDICATION: Fall. COMPARISON: Comparison is made with prior CT head from 12/14/2014. FINDINGS: Ventricles and sulci are within normal limits. No sulcal effacement, midline shift, or hemorrhage is detected. Cisterns are patent. Visualized paranasal sinuses are clear. IMPRESSION: No acute intracranial process is detected. CT cervical spine: FINDINGS: There is reversal of normal cervical lordotic curvature. Significant degenerative disc disease is seen at the C4-C5, C5-C6, and C6-C7 levels, with disc space narrowing and marginal spurring. No fractures are seen. Odontoid is intact. IMPRESSION: Cervical spondylosis. No acute bony abnormality is detected. Dictated by: Dictated on workstation # [id number] Dict: 09/02/18 1506 Trans: 09/02/18 1520 Interpreted by: LON MITCHELL MD Electronically signed by: LON MITCHELL MD 09/02/18 1520 Reviewed: Reviewed by Me Consults : Consulting Physician: ALEE ROBLERO MD Consults Notes Discussed the case with Dr. Roblero, trauma surgeon on-call and he states since the fall from standing same level and there is an isolated joint injury that he does not need to admit the patient and it would be better served to be admitted by medicine. Departure Communication (Admissions) Time/Spoke to Admitting Phy: 14:40 Dr. Gustafson agrees to admit the patient and would like to consult cardiology. Time/Spoke to Consulting Phy: 14:42 Dr. Leon was seen the patient and imaging recommends 10:00 tomorrow. Nothing by mouth at midnight. Consulted Dr. Hickman per Dr. Gustafson's wishes. He will see the patient. Impression Primary Impression: Fall Qualified Codes: W19.XXXA - Unspecified fall, initial encounter Additional Impressions: Fibula fracture Qualified Codes: S82.831A - Other fracture of upper and lower end of right fibula, initial encounter for closed fracture Medial malleolar fracture Qualified Codes: S82.51XA - Displaced fracture of medial malleolus of right tibia, initial encounter for closed fracture Disposition: HOME, SELF-CARE (ERASED) Condition: Stable Admissions Decision to Admit Reason: Admit from ER (General) Decision to Admit/Date: September 02, 2018 Time/Decision to Admit Time: 14:34 Departure-Patient Inst. Referrals: [facility] (PCP) Primary Care Physician EB MONET APRN (Family) Primary Care Physician JENI ROD September 02, 2018 13:14
--- OUTSIDE RECORDS SUMMARY | 2018-09-02 13:14 | XMS REPORT ---
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 Name Role Phone MARLENE MONETTA Unavailable PROBLEMS Type Condition ICD9-CM Code UQV28-DV Code Onset Dates Condition Status SNOMED Code Problem OAB (overactive bladder) N32.81 Active 993002517 Problem Depression with anxiety F41.8 Active 130814450 Problem Other seasonal allergic rhinitis J30.2 Active 948693336 Problem Chronic obstructive pulmonary disease, unspecified COPD type J44.9 Active 12629784 Problem Tobacco abuse Z72.0 Active 106532683 Problem Morbid obesity due to excess calories E66.01 Active 060159566 Problem Dyslipidemia E78.5 Active 612105164 Problem Hypothyroidism (acquired) E03.9 Active 786762051 Problem Essential hypertension I10 Active 55265522 Problem Diabetic polyneuropathy associated with type 2 diabetes mellitus E11.42 Active 404953813 Problem Type 2 diabetes mellitus with diabetic neuropathic arthropathy, 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 Active 173367358 Problem Type 2 diabetes mellitus without complication, without long-term current use of insulin E11.9 Active 182334795 Problem Paranoid schizophrenia F20.0 Active 04065136 Problem Chronic pain syndrome G89.4 Active 350263612 Problem Migraine without aura and without status migrainosus, not intractable G43.009 Active 789392776 Problem Gastroesophageal reflux disease, esophagitis presence not specified K21.9 Active 966801025 Problem Seasonal allergic rhinitis due to pollen J30.1 Active 51389668 Problem COPD exacerbation J44.1 Active 324169615 Problem Seasonal allergic rhinitis due to other allergic trigger J30.89 Active 187535330 Problem Schizoaffective disorder, depressive type F25.1 Active 00641522 Problem History of lupus Z87.39 Active 147989115 Problem Gastroesophageal reflux disease without esophagitis K21.9 Active 015328222 Problem Menopausal syndrome (hot flashes) N95.1 Active 472999885 Problem Other allergic rhinitis J30.89 Active 228311522 Problem Primary insomnia F51.01 Active 9836652 Problem DM neuro manif type II E11.49 Active 46755871 ALLERGIES No Information ENCOUNTERS Encounter Location Date Diagnosis [facility] [id number] [place] [address] 80952- 1475 Jan, [facility] [address] 25631- 8692 Jan, [facility] [address] 16771- 4345 Jan, [facility] [address] 22677- 9424 Jan, Paranoid schizophrenia F20.0 [place] [address] 06647- 8549 08 Jan, 2018 [facility] [address] 70548- 5005 Jan, Schizoaffective disorder, depressive type F25.1 [facility] [address] 05660- 1957 Jan, [facility] [address] 58359- 9662 02 Jan, 2018 Chronic obstructive pulmonary disease, unspecified COPD type J44.9 ; BMI 45.0-49.9, adult Z68.42 ; Type 2 diabetes mellitus without complication, without long-term current use of insulin E11.9 ; Hypothyroidism ( acquired) E03.9 ; Encounter for immunization Z23 ; Gastroesophageal reflux disease without esophagitis K21.9 ; Primary insomnia F51.01 and Acute nasopharyngitis J00 [facility] [id number] [place] [address] 17289- 9485 Dec, [facility] [id number] [place] [address] 13859- 1692 Dec, Schizoaffective disorder, depressive type F25.1 and BMI 45.0 -49.9, adult Z68.42 [facility] [id number] [place] [address] 20319- 8062 Dec, [facility] [id number] [place] [address] 30703- 3976 18 Dec, 2017 [facility] [id number] [place] [address] 51121- 8824 18 Dec, 2017 Acute non-recurrent frontal sinusitis J01.10 [facility] [id number] [place] [address] 08890- 8081 18 Dec, 2017 Acute non-recurrent frontal sinusitis J01.10 ; Weakness of left leg R29.898 ; At high risk for falls Z91.81 and BMI 45.0-49.9, adult Z68.42 [place] [id number] [place] [address] 82317- 8995 17 Dec, 2017 [facility] [id number] [place] [address] 39923- 4476 Dec, [facility] [id number] [place] [address] 54644- 3152 Dec, Schizoaffective disorder, depressive type F25.1 [facility] [id number] [place] [address] 84438 -4257 Dec, Acute nasopharyngitis J00 [facility] [id number] [place] [address] 32909- 4011 Dec, Schizoaffective disorder, depressive type F25.1 [facility] [id number] [place] [address] 84140- 1248 Dec, [facility] [id number] [place] [address] 01935- 0976 Nov, Schizoaffective disorder, depressive type F25.1 and BMI 45.0 -49.9, adult Z68.42 [facility] [id number] [place] [address] 82820- 4946 Nov, [place] [address] [address] 0806 Nov, [place] [id number] [place] [address] 01587- 8602 Nov, Schizoaffective disorder, depressive type F25.1 [place] [id number] [place] [address] 14429- 5565 Nov, Well woman exam Z01.419 ; BMI 45.0-49.9, adult Z68.42 ; Screening breast examination Z12.31 and Dietary counseling and surveillance Z71.3 [place] [id number] [place] [address] 96909- 4836 Nov, Paranoid schizophrenia F20.0 [place] [id number] [place] [address] 77983- 9769 Nov, Gastroesophageal reflux disease, esophagitis presence not specified K21.9 [place] [address] [place] [address] 97300- 6693 Oct, Paranoid schizophrenia F20.0 [facility] [id number] [place] [address] Oct Chronic pain syndrome G89.4 and Schizoaffective disorder, depressive type F25.1 [place] [address] [place] [address] 34872- 5724 Oct, Chronic pain syndrome G89.4 and Schizoaffective disorder, depressive type F25.1 [place] [address] [place] [address] 70863- 5908 Oct, Type 2 diabetes mellitus without complication, without long- term current use of insulin E11.9 [place] [address] [place] [address] 35066- 6643 12 Oct, 2017 Essential hypertension I10 and DM neuro manif type II E11.49 [place] [id number] [place] [address] 70894- 9021 Oct, [facility] [id number] [place] [address] 16348- 7695 Oct, Schizoaffective disorder, depressive type F25.1 and BMI 45.0 -49.9, adult Z68.42 [facility] [id number] [address] 3232 Oct, [facility] [id number] [place] [address] 88554- 9250 Oct, Paranoid schizophrenia F20.0 [place] [id number] [place] [address] 76752- 6925 Oct, Type 2 diabetes mellitus with diabetic neuropathic arthropathy, 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 ; Essential hypertension I10 ; Hypothyroidism (acquired) E03.9 ; Chronic obstructive pulmonary disease, unspecified COPD type J44.9 and Diabetic polyneuropathy associated with type 2 diabetes mellitus E11.42 [place] [id number] [place] [address] 92175- 4824 Sep, Paranoid schizophrenia F20.0 [place] [id number] [place] [address] 40480- 7680 Sep, Paranoid schizophrenia F20.0 and BMI 45.0-49.9, adult Z68.42 [place] [address] [address] 6420 Sep, Schizoaffective disorder, depressive type F25.1 [facility] [address], [place] [address]- 6336 Sep, [facility] [id number] [place] [address] 65089- 8474 Sep, Paranoid schizophrenia F20.0 [facility] [address], [place] [address] 2714 Sep, [facility] [id number] [place] [address] 63268- 5045 Sep, Hypothyroidism (acquired) E03.9 [facility] [id number] [place] [address] 23734- 5256 Sep, [facility] [id number] [place] [address] 25235- 8691 August, Schizoaffective disorder, depressive type F25.1 [facility] [address] 79921- 3203 August, [facility] [address] 32766- 8880 August, [facility] [address] 83295- 5161 August, [facility] [address] 47264- 5789 August, Paranoid schizophrenia F20.0 [facility] [address] 18423- 5331 August, History of lupus Z87.39 and Chronic pain syndrome G89.4 [facility] [id number] [place] [address] 01574- 9870 August, [facility] [id number] [place] [address] 23579 -0419 August, Seasonal allergic rhinitis, unspecified trigger J30.2 and BMI 45.0-49.9, adult Z68.42 [facility] [id number] [place] [address] 04512- 5706 Jul, Schizoaffective disorder, depressive type F25.1 [facility] [id number] [place] [address] 47271- 2467 Jul, [facility] [id number] [place] [address] 95279- 9143 Jul, Hypothyroidism (acquired) E03.9 [facility] [address] 23802- 0003 Jul, Chronic obstructive pulmonary disease, unspecified COPD type J44.9 and Type 2 diabetes mellitus without complication, without long-term current use of insulin E11.9 [place] [address] 02543- 8979 Jul, Paranoid schizophrenia F20.0 [place] [address] 35323- 7873 Jun, Hypothyroidism (acquired) E03.9 and Seasonal allergic rhinitis due to pollen J30.1 [facility] [address] 19971 -3565 Jun, Shortness of breath at rest R06.02 ; COPD exacerbation J44.1 and BMI 45.0-49.9, adult Z68.42 [place] [address] 59997- 8691 Jun, [place] [address] 21236- 6948 Jun, Paranoid schizophrenia F20.0 ; Depression with anxiety F41.8 and BMI 45.0-49.9, adult Z68.42 [place] [address] 55412- 0335 Jun, Schizoaffective disorder, depressive type F25.1 [facility] [address] [id number] Jun, Dental caries K02.9 [place] [address] 88779- 0187 Jun, Paranoid schizophrenia F20.0 [place] [address] 99033- 5528 May, Migraine without aura and without status migrainosus, not intractable G43.009 ; DM neuro manif type II E11.49 and Type 2 diabetes mellitus without complication, without long-term current use of insulin E11.9 [place] [address] [place] [address]- 2242 May, Migraine without aura and without status migrainosus, not intractable G43.009 [facility] [id number] [place] [address] 91338- 1372 May, Depression with anxiety F41.8 [facility] [id number] [place] [address] [id number] May, [facility] [id number] [place] [address] 52620- 5008 May, [place] [address] 58423- 6951 May, [place] [address] 30181- 4145 May, Hypothyroidism (acquired) E03.9 [place] [address] 10429- 0095 May, Paranoid schizophrenia F20.0 [facility] [id number] [place] [address] 54845- 9095 May, Type 2 diabetes mellitus without complication, [...] N32.81 and Controlled substance agreement signed Z79.899 [place] [id number] [place] [address] 18175- 9596 May, Controlled substance agreement signed Z79.899 [place] [address] [place] [address]- 6369 Apr, [facility] [id number] [place] [address] [id number] Apr, Dental examination Z01.20 [facility] [id number] [place] [address] 56627- 2394 Apr, Paranoid schizophrenia F20.0 [facility] [id number] [place] [address] 07877- 4780 Apr, Hypertension, unspecified type I10 [facility] [id number] [place] [address] 63857- 5835 Apr, Paranoid schizophrenia F20.0 [facility] [id number] [place] [address] 39754- 4272 Apr, [facility] [id number] [place] [address] 03991- 0219 Apr, Tobacco abuse Z72.0 [facility] [id number] [place] [address] 00318- 4781 Apr, [facility] [id number] [place] [address] 01277- 6312 Mar, [facility] [id number] [place] [address] 13967- 2708 Mar, Paranoid schizophrenia F20.0 and BMI 45.0-49.9, adult Z68.42 [facility] [id number] [place] [address] 90953- 0119 Mar, Schizoaffective disorder, depressive type F25.1 [facility] [id number] [place] [address] 43659- 3887 Mar, [facility] [id number] [place] [address] 87022- 7309 Mar, Hypothyroidism, unspecified type E03.9 [facility] [id number] [place] [address] 63267- 0723 Mar, Schizoaffective disorder, depressive type F25.1 [facility] [id number] [place] [address] 19705 -8808 Feb, Gastroenteritis K52.9 and BMI 45.0-49.9, adult Z68.42 [facility] [id number] [place] [address] 80366- 0680 Feb, [facility] [address] 13609- 4388 Feb, [place] [id number] [place] [address] 08432- 9401 Feb, [place] [id number] [place] [address] 59206- 3217 Feb, [place] [id number] [place] [address] 07347- 7731 Feb, Paranoid schizophrenia F20.0 [facility] [id number] [place] [address] 84679- 5949 Feb, Gastroesophageal reflux disease without esophagitis K21.9 ; Other seasonal allergic rhinitis J30.2 ; Other allergic rhinitis J30.89 ; Tobacco abuse Z72.0 and BMI 40.0-44.9, adult Z68.41 [place] [id number] [place] [address] 54424- 5308 Feb, Onychomycosis B35.1 ; Callus of foot L84 and DM neuro manif type II E11.49 [place] [id number] [place] [address] 93008- 4970 Jan, Chronic allergic rhinitis J30.9 [place] [id number] [place] [address] 95095- 6694 Jan, [facility] [id number] [place] [address] 64529- 8741 Jan, Schizoaffective disorder, depressive type F25.1 [place] [address] [address]- 1268 10 Jan, 2017 [facility] [id number] [place] [address] 12433 -9149 07 Jan, 2017 Sore throat J02.9 and Seasonal allergic rhinitis due to other allergic trigger J30.89 [facility] [id number] [place] [address] 22015- 0286 04 Jan, 2017 [facility] [id number] [place] [address] 06307- 0363 Jan, [facility] [id number] [place] [address] 68246 -5666 Jan, Chronic allergic rhinitis J30.9 [facility] [id number] [place] [address] 51543- 2807 27 Dec, 2016 Paranoid schizophrenia F20.0 ; Primary insomnia F51.01 and Schizoaffective disorder, depressive type F25.1 [place] [id number] [place] [address] 72498- 7442 Dec, Chronic pain syndrome G89.4 ; Cervicalgia of occipito- atlanto-axial region M54.2 ; Menopausal syndrome (hot flashes) N95.1 and Encounter for immunization Z23 [facility] [id number] [place] [address] 28941- 5398 14 Dec, 2016 [place] [id number] [place] [address] 27998- 4427 13 Dec, 2016 [place] [id number] [place] [address] 85392- 8229 08 Dec, 2016 Paranoid schizophrenia F20.0 [place] [id number] [place] [address] 12144- 3376 Dec, Schizoaffective disorder, depressive type F25.1 [facility] [id number] [place] [address] 57326- 4672 Nov, Hypothyroidism, unspecified type E03.9 [facility] [address], [place] [address]6970 Nov, Acute seasonal allergic rhinitis due to other allergen J30.89 [place] [address] [place] [address] 38728- 4829 Nov, [place] [id number] [place] [address] 94947- 4297 Nov, Hypothyroidism, unspecified type E03.9 and Other elevated white blood cell (WBC) count D72.828 [place] [id number] [place] [address] 48619- 5911 Nov, Schizoaffective disorder, depressive type F25.1 [place] [id number] [place] [address] 09626- 7001 Nov, Paranoid schizophrenia F20.0 [place] [id number] [place] [address] 54977- 7657 Nov, Type 2 diabetes mellitus without complication, without long- term current use of insulin E11.9 ; Morbid obesity due to excess calories E66.01 and Chronic pain syndrome G89.4 [place] [id number] [place] [address] 70128- 5761 Oct, Paranoid schizophrenia F20.0 [place] [id number] [place] [address] 13843- 1839 Oct, [place] [id number] [place] [address] 64717- 7187 Oct, Schizoaffective disorder, depressive type F25.1 [place] [id number] [place] [address] 85128- 6475 Oct, Hypothyroidism, unspecified type E03.9 and Other elevated white blood cell (WBC) count D72.828 [place] [id number] [place] [address] 09911- 5230 Oct, Morbid obesity due to excess calories E66.01 ; Chronic obstructive pulmonary disease, unspecified COPD type J44.9 ; History of lupus Z87.39 ; Hypothyroidism, unspecified type E03.9 ; Gastroesophageal reflux disease without esophagitis K21.9 ; Primary insomnia F51.01 and Chronic pain syndrome G89.4 [facility] [address], [place] [address]- 3727 Sep, [facility] [id number] [place] [address] 93901- 6047 Sep, [facility] [id number] [place] [address] 25911- 3957 Sep, [facility] [id number] [place] [address] 58777- 6184 Sep, Paranoid schizophrenia F20.0 [facility] [id number] [place] [address] 13006- 6685 Sep, [facility] [id number] [place] [address] 59838- 6458 Sep, Paranoid schizophrenia F20.0 [facility] [id number] [place] [address] 43983- 2382 Sep, [facility] [id number] [place] [address] 57370- 3083 August, Paranoid schizophrenia F20.0 [facility] [id number] [place] [address] 94420- 8755 Jul, [facility] [id number] [place] [address] 62032- 5430 Jul, Type 2 diabetes mellitus without complication, without long- term current use of insulin E11.9 ; Morbid obesity due to excess calories E66.01 ; Depression with anxiety F41.8 ; Hypothyroidism, unspecified type E03.9 ; Seasonal allergic rhinitis due to other allergic trigger J30.89 ; Pain, dental K08.89 and Gastroesophageal reflux disease without esophagitis K21.9 [facility] [address] [place] [address] [id number] Jul, Dental examination Z01.20 [place] [address], [place] [address]- 4472 07 Jul, 2016 Paranoid schizophrenia F20.0 [place] [id number] [place] [address] 71671- 9938 13 Jun, 2016 Paranoid schizophrenia F20.0 and Depression with anxiety F41.8 [place] [id number] [place] [address] 47935- 7625 10 Jun, 2016 Paranoid schizophrenia F20.0 and Depression with anxiety F41.8 [place] [id number] [place] [address] 89279- 4075 09 Jun, 2016 [place] [id number] [place] [address] 09821- 8789 Jun, [facility] [place] [id number] [place] [address] 75382 -3926 Jun, Seasonal allergic rhinitis due to other allergic trigger J30.89 [facility] [place] [id number] [place] [address] 38574 -1170 May, Sore throat J02.9 ; Other viral agents as the cause of diseases classified elsewhere B97.89 and Acute upper respiratory infection, unspecified J06.9 [place] [address], [place] [address] May, Paranoid schizophrenia F20.0 and Depression with anxiety F41.8 [place] [address], [place] [address] Apr, Other seasonal allergic rhinitis J30.2 [place] [address] [address] [place] [id number] [place] [address] Apr, Paranoid schizophrenia F20.0 and Depression with anxiety F41.8 [facility] [id number], [place] [address] Apr, Bronchitis J40 and Sore throat J02.9 [facility] [id number] [place] [address] Apr, Type 2 diabetes mellitus without complication, without long- term current use of insulin E11.9 [facility] [address] [place] [id number] [place] [phone] Apr, Bronchitis J40 [facility] [address] [address] Apr, [facility] [address] [address] Apr, [facility] [address] [address] Mar, Type 2 diabetes mellitus without complication, [...] R60.9 and Other seasonal allergic rhinitis J30.2 [place] [address] [address] [place] [id number] [place] [address] Mar, Paranoid schizophrenia F20.0 and Depression with anxiety F41.8 [facility] [address] [place] [id number] [place] [address] Feb, [place] [address] [address] [place] [id number] [place] [address] 59372- 0756 Feb, [place] [id number] [place] [address] 75879- 4357 Feb, [place] [place] [id number] [place] [address] 91890- 0653 Feb, [facility] [id number] [place] [address] 99337- 5642 Feb, Type 2 diabetes mellitus without complication, without long- term current use of insulin E11.9 ; ARIAS on CPAP G47.33 and Preoperative evaluation to rule out surgical contraindication Z01.818 [facility] [id number] [place] [address] 08756- 5699 09 Feb, 2016 Paranoid schizophrenia F20.0 and Depression with anxiety F41.8 [facility] [id number] [place] [address] 94292- 1385 Jan, [facility] [id number] [place] [address] 22639- 6365 18 Jan, 2016 Paranoid schizophrenia F20.0 and Depression with anxiety F41.8 [facility] [id number] [place] [address] 66966- 3904 17 Jan, 2016 [facility] [id number] [place] [address] 21006- 5073 Jan, Muscle strain T14.8 [facility] [id number] [place] [address] 68454- 2306 10 Jan, 2016 Paranoid schizophrenia F20.0 [facility] [id number] [place] [address] 62027- 7238 Jan, [facility] [id number] [place] [address] 84465- 5681 Jan, Paranoid schizophrenia F20.0 and Depression with anxiety F41.8 [facility] [id number] [place] [address] 26380- 8620 Jan, [facility] [id number] [place] [address] 71830- 4417 Jan, [facility] [id number] [place] [address] 06163- 8672 Dec, [facility] [id number] [place] [address] 97296- 7537 Dec, Paranoid schizophrenia F20.0 [facility] [address] [place] [address] 0890 16 Dec, 2015 Paranoid schizophrenia F20.0 and Depression with anxiety F41.8 [facility] [id number] [place] [address] 27809- 7271 Nov, [facility] [id number] [place] [address] 81482- 1333 Nov, Paranoid schizophrenia F20.0 [facility] [id number] [place] [address] 29941- 5000 Nov, Paranoid schizophrenia F20.0 and Depression with anxiety F41.8 [facility] [id number] [place] [address] 59329- 2620 Nov, Type 2 diabetes mellitus without complication, without long- term current use of insulin E11.9 ; Paranoid schizophrenia F20.0 ; Chronic obstructive pulmonary disease, unspecified COPD type J44.9 ; Morbid obesity due to excess calories E66.01 and Parkinsonian tremor G20 [facility] [id number] [place] [address] 81637- 8471 Nov, [facility] [id number] [place] [address] 82155- 9679 Oct, Paranoid schizophrenia F20.0 [facility] [id number] [place] [address] 06055- 8871 Oct, Paranoid schizophrenia F20.0 [facility] [id number] [place] [address] 21167- 3543 Oct, Paranoid schizophrenia F20.0 and Depression with anxiety F41.8 [facility] [id number] [place] [address] 94908- 6407 Oct, [facility] [id number] [place] [address] 95118- 3473 Oct, Paranoid schizophrenia F20.0 and Depression with anxiety F41.8 [facility] [id number] [place] [address] 85791- 7044 Oct, Nasal sore J34.89 [facility] [id number] [place] [address] 91503- 2150 Oct, Type 2 diabetes mellitus without complication, without long- term current use of insulin E11.9 ; Depression with anxiety F41.8 ; Hypothyroidism, unspecified type E03.9 and History of lupus Z87.39 [facility] [address] 94930- 8099 Oct, [place] [place] [address] 52078- 0628 Oct, Type 2 diabetes mellitus without complication, [...] edema R60.9 and History of lupus Z87.39 [facility] [id number] [place] [address] 67114- 8835 Feb, [facility] [place] [id number] [place] [address] 07676- 0317 Jan, [facility] [place] [id number] [place] [address] 12055- 6797 Jan, [facility] [place] [id number] [place] [address] 28805- 4051 Jan, [place] [place] [address] 32430- 8603 Dec, [facility] [place] [id number] [place] [address] 02473- 9279 Nov, [place] [address] 01165- 9388 Nov, [facility] [address] [id number] [address]- 3391 Oct, [facility] [address] [id number] [address]- 7669 Oct, [facility] [address] [address]- 5081 Oct, [facility] [id number] [place] [address] 67657- 9299 Sep, Allergic rhinitis 477.9 [facility] [id number] [place] [address] 59498- 4241 Sep, Rhinitis, allergic 477.9 [facility] [address], [place] [address]- 0755 Sep, Rhinitis, allergic 477.9 [facility] [address], [place] [address]- 5921 Sep, [facility] [place] [facility] [address] [address]- 5226 August, [facility] [address] [address]- 6107 August, [facility] [address], [place] [address]- 0621 August, [facility] [place] [facility] [address] [address]- 1548 28 Jul, 2014 [facility] [place] [facility] [address] [id number] [address]- 0219 14 Jul, 2014 [facility] [place] [facility] [address] [address]- 7127 13 Jul, 2014 [facility] [place] [facility] [id number] 7636 16 Jun, 2014 [facility] [place] [facility] [address], [place] [address]- 5660 16 Jun, 2014 [facility] [place] [facility] [address] [id number] [place] [address]- 5660 Jun, [facility] [place] [facility] [address] [id number] [place] [address]- 6386 Jun, [facility] [place] [facility] [address] [facility] [id number] [place] [address]- 4107 Jun, [facility] [place] [facility] [address] [id number] [place] [address]- 8067 Jun, [facility] [place] [facility] [address] [id number] [place] [address]- 7024 Jun, [facility] [place] [facility] [address] [id number] [place] [address]- 6356 Jun, [facility] [place] [facility] [address] [facility] [id number] [place] [address]- 4349 May, [facility] [place] [facility] [address] [facility] [id number] [place] [address]- 7688 May, [facility] [place] [facility] [address] [facility] [id number] [place] [address]- 3926 May, [facility] [place] [facility] [address] [facility] [id number] [place] [address]- 4798 May, [facility] [place] [facility] [address] [facility] [id number] [place] [address]- 3188 Apr, [facility] [place] [facility] [address] [facility] [id number] [place] [address]- 1053 Mar, [facility] [place] [facility] [address] [id number] [place] [address]- 8405 Mar, [facility] [place] [facility] [address] [facility] [id number] [place] 2882 Mar, [facility] [place] [facility] [address] [facility] [id number] [place] 6138 Mar, [facility] [place] [facility] [address] [id number] [place] 9357 Mar, [facility] [place] [facility] [address] [id number] [place] [address]- 0239 Mar, [facility] [place] [facility] [address] [id number] [place] [address]- 9303 Mar, [facility] [place] [facility] [address] [id number] [place] [address]- 5316 Mar, [facility] [place] [facility] [address] [id number] [place] [address]- 2257 Mar, [facility] [place] [facility] [address] [id number] [place] [address]- 8363 Feb, [facility] [place] [facility] [address] [id number] [place] [address]- 3126 Feb, [facility] [place] [facility] [address] [id number] [place] [address]- 1152 Feb, [facility] [place] [facility] [address] [id number] [place] [address]- 3972 Feb, [facility] [place] [facility] [address] [id number] [place] [address]- 3702 Feb, [facility] [place] [facility] [address] [id number] [place] [address]- 0551 Feb, [facility] [place] [facility] [address] [id number] [place] [address]- 6158 Feb, [facility] [place] [facility] [address] [id number] [place] [address]- 7063 Feb, [facility] [place] [facility] [address] [id number] [place] [address]- 6689 Jan, [facility] [place] [facility] [address] [id number] [place] [address]- 4367 Jan, [facility] [place] [facility] [address] [id number] [place] [address]- 3852 16 Jan, 2014 [facility] [place] [facility] [address] [id number] [place] [address]- 4959 16 Jan, 2014 [facility] [place] [facility] [address] [id number] [place] [address]- 1007 15 Jan, 2014 [facility] [place] [facility] [address] [id number] [place] [address]- 6071 15 Jan, 2014 [facility] [place] [facility] [address] [id number] [place] [address]- 6824 14 Jan, 2014 [facility] [place] [facility] [address] [id number] [place] [address]- 3890 14 Jan, 2014 [facility] [place] [facility] [address] [id number] [place] [address]- 0156 14 Jan, 2014 [facility] [place] [facility] [address] [id number] [place] [address]- 4144 14 Jan, 2014 [facility] [place] [facility] [address] [id number] [place] [address]- 6527 18 Dec, 2013 [facility] [place] [facility] [address] [id number] [place] [address]- 7964 18 Dec, 2013 [facility] [place] [facility] [address] [id number] [place] [address]- 5228 10 Dec, 2013 [facility] [place] [facility] [address] [id number] [place] [address]- 4273 Dec, [facility] [place] [facility] [address] [id number] [address]- 8047 Nov, [facility] [place] [facility] [address] [id number] [place] [address]- 8755 Nov, [facility] [place] [facility] [address] [id number] [place] [address]- 6072 Nov, [facility] [place] [facility] [address] [id number] [place] [address]- 2568 Nov, [facility] [place] [facility] [address] [id number] [place] [address]- 8843 Nov, [facility] [place] [facility] [address] [id number] [place] [address]- 1163 Oct, [facility] [place] [facility] [address] [id number] [place] [address]- 5196 Oct, [facility] [place] [facility] [address] [id number] [place] [address]- 2149 Oct, [facility] [place] [facility] [address] [id number] [place] [address]- 6451 Oct, [facility] [place] [facility] [address] [id number] [place] [address]- 8196 Sep, [facility] [place] [facility] [address] [id number] [place] [address]- 4527 Sep, [facility] [place] [facility] [address] [id number] [place] [address]- 9458 Sep, [facility] [place] [facility] [address] [id number] [place] [address]- 4644 Sep, [facility] [place] [facility] [address] [id number] [place] [address]- 9488 Sep, [facility] [place] [facility] [address] [id number] [place] [address]- 4982 Sep, [facility] [place] [facility] [address] [id number] [place] [address]- 1166 Sep, [facility] [place] [facility] [address] [id number] [place] [address]- 0278 Sep, [facility] [place] [facility] [address] [id number] [place] [address]- 0915 August, [facility] [place] [facility] [address] [id number] [place] [address]- 4046 August, [facility] [place] [facility] [address] [id number] [place] [address]- 1143 August, [facility] [place] [facility] [address] [id number] [place] [address]- 2608 August, [facility] [place] [facility] [address] [id number] [place] [address]- 8271 August, [facility] [place] [facility] [address] [id number] [place] [address]- 1204 August, [facility] [place] [facility] [address] [id number] [place] [address]- 1654 August, [facility] [place] [facility] [address] [id number] [place] [address]- 7381 Jul, [facility] [place] [facility] [address] [id number] [place] [address]- 1364 Jul, [facility] [place] [facility] [address] [id number] [place] [address]- 7073 Jul, [facility] [place] [facility] [address] [id number] [place] [address]- 5451 Jul, [facility] [place] [facility] [address] [id number] [place] [address]- 3942 Jul, [facility] [place] [facility] [address] [id number] [place] [address]- 3394 Jul, [facility] [place] [facility] [address] [id number] [place] [address]- 9895 Jul, [facility] [place] [facility] [address] [id number] [place] [address]- 8664 Jul, [facility] [place] [facility] [address] [id number] [place] [address]- 9633 Jul, [facility] [place] [facility] [address] [id number] [place] [address]- 3505 Jul, [facility] [place] [facility] [address] [id number] [place] [address]- 3559 Jul, [facility] [place] [facility] [address] [id number] [place] [address]- 3795 Jul, [facility] [place] [facility] [address] [id number] [place] [address]- 1004 Jun, [facility] [place] [facility] [address] [id number] [place] 9842 Jun, [facility] [place] [facility] [address] [facility] [id number] [place] [address]- 1532 Jun, [facility] [place] [facility] [address] [id number] [place] [address]- 7337 Jun, [facility] [place] [facility] [address] [id number] [place] [address]- 3671 Jun, [facility] [place] [facility] [address] [id number] [place] [address]- 4110 May, [facility] [place] [facility] [address] [facility] [id number] [place] [address]- 0331 May, [facility] [place] [facility] [address] [facility] [id number] [place] [address]- 1909 May, [facility] [place] [facility] [address] [facility] [id number] [place] [address]- 6380 May, [facility] [place] [facility] [address] [facility] [id number] [place] [address]- 9794 May, [facility] [place] [facility] [address] [facility] [id number] [place] [address]- 9041 May, [facility] [place] [facility] [address] [facility] [id number] [place] [address]- 5400 May, [facility] [place] [facility] [address] [facility] [id number] [place] [address]- 0052 May, [facility] [place] [facility] [address] [facility] [id number] [place] [address]- 7934 Mar, [facility] [place] [facility] [address] [facility] [id number] [place] [address]- 2425 Mar, [facility] [place] [facility] [address] [id number] [place] [address]- 9799 Mar, [facility] [place] [facility] [address] [id number] [place] [address]- 9223 Mar, [facility] [place] [facility] [address] [id number] [place] [address]- 4255 Mar, [facility] [place] [facility] [address] [id number] [place] [address]- 7853 Mar, [facility] [place] [facility] [address] [id number] [place] [address]- 1474 Feb, [facility] [place] [facility] [address] [id number] [place] [address]- 1945 Feb, [facility] [place] [facility] [address] [id number] [place] [address]- 1215 Jan, [facility] [place] [facility] [address] [id number], [place] [address]- 2009 Jan, [facility] [place] [facility] [address] [id number], [place] [address]- 3984 Jan, [facility] [place] [facility] [address] [id number], [place] [address]- 2223 Jan, [facility] [place] [facility] [address] [id number], [place] [address]- 5436 Jan, [facility] [place] [facility] [address] [id number], [place] [address]- 8923 Jan, [facility] [place] [facility] [address] [id number], [place] [address]- 6858 Jan, [facility] [place] [facility] [address] [id number], [place] [address]- 2436 Jan, [facility] [place] [facility] [address] [id number] 7714 08 Jan, 2013 [facility] [place] [facility] [address] [id number], [place] [address]- 6935 Jan, [facility] [address] [id number] [place] [address]- 9117 Dec, [facility] [place] [facility] [address] [id number] [place] [address]- 3912 Nov, [facility] [place] [facility] [address] [id number] [place] [address]- 6573 Nov, [facility] [place] [facility] [address] [id number] [place] [address]- 7018 Nov, [facility] [place] [facility] [address] [id number] [place] [address]- 7569 Oct, [facility] [place] [facility] [address] [id number] [place] [address]- 3141 Oct, [facility] [address] [id number] [place] [address]- 0102 August, [facility] [place] [facility] [address] [id number] [place] [address]- 2127 Apr, [facility] [address] [id number] [place] [address]- 2966 Apr, [facility] [place] [facility] [address] [id number] [place] [address]- 0425 Feb, [facility] [place] [facility] [address] [id number] [place] [address]- 5956 Feb, [facility] [place] [facility] [address] [id number] [place] [address]- 7701 Dec, [facility] [place] [facility] [address] [id number] [place] [address]- 6023 Dec, [facility] [place] [facility] [address] [id number] [place] 1623 Oct, [facility] [place] [facility] [address] [id number] [place] [address] Oct, [facility] [place] [facility] [address] [facility] [id number] [place] [address] Oct, [facility] [address] [facility] [id number] [place] [address] Jul, IMMUNIZATIONS No Known Immunizations SOCIAL HISTORY Never Assessed REASON FOR VISIT Requests return call PLAN OF CARE VITAL SIGNS MEDICATIONS Unknown [...] for psychosis/mental illness , last one in [facility] 4 years ago
[2018-09-02] MEDS ORDERED: fentaNYL INJECTION 100 MCG/2 ML AMP IVP ONE (13:15)
--- OUTSIDE RECORDS SUMMARY | 2018-09-02 13:15 | XMS REPORT ---
Author Author KING EB Organization [facility] Address [address] [place] [address] Care Team Providers [employer] Installer Name Role Phone MARLENE MONETTA Unavailable PROBLEMS Type Condition ICD9-CM Code JMU51-BJ Code Onset Dates Condition Status SNOMED Code Problem OAB (overactive bladder) N32.81 Active 904888475 Problem Depression with anxiety F41.8 Active 397418613 Problem Other seasonal allergic rhinitis J30.2 Active 153249198 Problem Chronic obstructive pulmonary disease, unspecified COPD type J44.9 Active 05588313 Problem Tobacco abuse Z72.0 Active 526423713 Problem Morbid obesity due to excess calories E66.01 Active 872013118 Problem Dyslipidemia E78.5 Active 832167924 Problem Hypothyroidism (acquired) E03.9 Active 772138269 Problem Essential hypertension I10 Active 44244791 Problem Diabetic polyneuropathy associated with type 2 diabetes mellitus E11.42 Active 282666967 Problem Type 2 diabetes mellitus with diabetic neuropathic arthropathy, 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 Active 040746129 Problem Type 2 diabetes mellitus without complication, without long-term current use of insulin E11.9 Active 631119049 Problem Paranoid schizophrenia F20.0 Active 12015671 Problem Chronic pain syndrome G89.4 Active 653416479 Problem Migraine without aura and without status migrainosus, not intractable G43.009 Active 279891234 Problem Gastroesophageal reflux disease, esophagitis presence not specified K21.9 Active 788575663 Problem Seasonal allergic rhinitis due to pollen J30.1 Active 79681080 Problem COPD exacerbation J44.1 Active 284455925 Problem Seasonal allergic rhinitis due to other allergic trigger J30.89 Active 895341133 Problem Schizoaffective disorder, depressive type F25.1 Active 21297645 Problem History of lupus Z87.39 Active 767994648 Problem Gastroesophageal reflux disease without esophagitis K21.9 Active 350678511 Problem Menopausal syndrome (hot flashes) N95.1 Active 418496667 Problem Other allergic rhinitis J30.89 Active 726347085 Problem Primary insomnia F51.01 Active 4188634 Problem DM neuro manif type II E11.49 Active 38379701 ALLERGIES No Information ENCOUNTERS Encounter Location Date Diagnosis [facility] [id number] [place] [address] 95661- 9211 Jan, [facility] [address] 13590- 8989 Jan, [facility] [address] 01626- 4932 Jan, [facility] [address] 31091- 8704 Jan, Paranoid schizophrenia F20.0 [place] [address] 13526- 6082 08 Jan, 2018 [facility] [address] 93676- 3808 Jan, Schizoaffective disorder, depressive type F25.1 [facility] [address] 46395- 0750 Jan, [facility] [address] 55634- 9485 02 Jan, 2018 Chronic obstructive pulmonary disease, unspecified COPD type J44.9 ; BMI 45.0-49.9, adult Z68.42 ; Type 2 diabetes mellitus without complication, without long-term current use of insulin E11.9 ; Hypothyroidism ( acquired) E03.9 ; Encounter for immunization Z23 ; Gastroesophageal reflux disease without esophagitis K21.9 ; Primary insomnia F51.01 and Acute nasopharyngitis J00 [facility] [id number] [place] [address] 75057- 7198 Dec, [facility] [id number] [place] [address] 48239- 6389 Dec, Schizoaffective disorder, depressive type F25.1 and BMI 45.0 -49.9, adult Z68.42 [facility] [id number] [place] [address] 27038- 8950 Dec, [facility] [id number] [place] [address] 43836- 4452 18 Dec, 2017 [facility] [id number] [place] [address] 75017- 4962 18 Dec, 2017 Acute non-recurrent frontal sinusitis J01.10 [facility] [id number] [place] [address] 98365- 3064 18 Dec, 2017 Acute non-recurrent frontal sinusitis J01.10 ; Weakness of left leg R29.898 ; At high risk for falls Z91.81 and BMI 45.0-49.9, adult Z68.42 [place] [id number] [place] [address] 58645- 7606 17 Dec, 2017 [facility] [id number] [place] [address] 17142- 6257 Dec, [facility] [id number] [place] [address] 36692- 0792 Dec, Schizoaffective disorder, depressive type F25.1 [facility] [id number] [place] [address] 22719 -8492 Dec, Acute nasopharyngitis J00 [facility] [id number] [place] [address] 28231- 2542 Dec, Schizoaffective disorder, depressive type F25.1 [facility] [id number] [place] [address] 10433- 6723 Dec, [facility] [id number] [place] [address] 29430- 2942 Nov, Schizoaffective disorder, depressive type F25.1 and BMI 45.0 -49.9, adult Z68.42 [facility] [id number] [place] [address] 16240- 3371 Nov, [place] [address] [address] 1430 Nov, [place] [id number] [place] [address] 27322- 8480 Nov, Schizoaffective disorder, depressive type F25.1 [place] [id number] [place] [address] 22063- 0511 Nov, Well woman exam Z01.419 ; BMI 45.0-49.9, adult Z68.42 ; Screening breast examination Z12.31 and Dietary counseling and surveillance Z71.3 [place] [id number] [place] [address] 82535- 1517 Nov, Paranoid schizophrenia F20.0 [place] [id number] [place] [address] 34760- 8204 Nov, Gastroesophageal reflux disease, esophagitis presence not specified K21.9 [place] [address] [place] [address] 60917- 3399 Oct, Paranoid schizophrenia F20.0 [facility] [address] [id number] [place] [address] Oct Chronic pain syndrome G89.4 and Schizoaffective disorder, depressive type F25.1 [place] [address] [place] [address] 91075- 6270 Oct, Chronic pain syndrome G89.4 and Schizoaffective disorder, depressive type F25.1 [place] [address] [place] [address] 25945- 7135 Oct, Type 2 diabetes mellitus without complication, without long- term current use of insulin E11.9 [place] [address] [place] [address] 44403- 5631 12 Oct, 2017 Essential hypertension I10 and DM neuro manif type II E11.49 [place] [id number] [place] [address] 66073- 6577 Oct, [facility] [address] [place] [address] 25602- 0436 Oct, Schizoaffective disorder, depressive type F25.1 and BMI 45.0 -49.9, adult Z68.42 [facility] [address] [address] 9909 Oct, [facility] [id number] [place] [address] 59552- 9264 Oct, Paranoid schizophrenia F20.0 [place] [id number] [place] [address] 63372- 2293 Oct, Type 2 diabetes mellitus with diabetic neuropathic arthropathy, 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 ; Essential hypertension I10 ; Hypothyroidism (acquired) E03.9 ; Chronic obstructive pulmonary disease, unspecified COPD type J44.9 and Diabetic polyneuropathy associated with type 2 diabetes mellitus E11.42 [place] [id number] [place] [address] 56736- 7238 Sep, Paranoid schizophrenia F20.0 [place] [id number] [place] [address] 37378- 0469 Sep, Paranoid schizophrenia F20.0 and BMI 45.0-49.9, adult Z68.42 [place] [address] [address] 4992 Sep, Schizoaffective disorder, depressive type F25.1 [facility] [address], [place] [address]- 7543 Sep, [facility] [id number] [place] [address] 63056- 1989 Sep, Paranoid schizophrenia F20.0 [facility] [address], [place] [address]- 8358 Sep, [facility] [id number] [place] [address] 32430- 7546 Sep, Hypothyroidism (acquired) E03.9 [facility] [id number] [place] [address] 50738- 3705 Sep, [facility] [id number] [place] [address] 91755- 6440 August, Schizoaffective disorder, depressive type F25.1 [facility] [address] 56009- 9898 August, [facility] [address] 65007- 8341 August, [facility] [address] 62334- 9667 August, [facility] [address] 09098- 5193 August, Paranoid schizophrenia F20.0 [facility] [address] 18869- 9713 August, History of lupus Z87.39 and Chronic pain syndrome G89.4 [facility] [id number] [place] [address] 91689- 5320 August, [facility] [id number] [place] [address] 55240 -1811 August, Seasonal allergic rhinitis, unspecified trigger J30.2 and BMI 45.0-49.9, adult Z68.42 [facility] [id number] [place] [address] 38978- 8677 Jul, Schizoaffective disorder, depressive type F25.1 [facility] [id number] [place] [address] 51766- 0747 Jul, [facility] [id number] [place] [address] 45735- 1129 Jul, Hypothyroidism (acquired) E03.9 [facility] [address] 35130- 3378 Jul, Chronic obstructive pulmonary disease, unspecified COPD type J44.9 and Type 2 diabetes mellitus without complication, without long-term current use of insulin E11.9 [place] [address] 18035- 8727 Jul, Paranoid schizophrenia F20.0 [place] [address] 78215- 1621 Jun, Hypothyroidism (acquired) E03.9 and Seasonal allergic rhinitis due to pollen J30.1 [facility] [address] 57637 -0776 Jun, Shortness of breath at rest R06.02 ; COPD exacerbation J44.1 and BMI 45.0-49.9, adult Z68.42 [place] [address] 61169- 8518 Jun, [place] [address] 70877- 4100 Jun, Paranoid schizophrenia F20.0 ; Depression with anxiety F41.8 and BMI 45.0-49.9, adult Z68.42 [place] [address] 75978- 4800 Jun, Schizoaffective disorder, depressive type F25.1 [facility] [address] [id number] Jun, Dental caries K02.9 [place] [address] 16251- 3989 Jun, Paranoid schizophrenia F20.0 [place] [address] 29256- 1862 May, Migraine without aura and without status migrainosus, not intractable G43.009 ; DM neuro manif type II E11.49 and Type 2 diabetes mellitus without complication, without long-term current use of insulin E11.9 [place] [address] [place] [address]- 8635 May, Migraine without aura and without status migrainosus, not intractable G43.009 [facility] [id number] [place] [address] 78759- 3261 May, Depression with anxiety F41.8 [facility] [address] [place] [address] [id number] May, [facility] [id number] [place] [address] 21672- 1129 May, [place] [address] 98964- 0356 May, [place] [address] 24527- 3507 May, Hypothyroidism (acquired) E03.9 [place] [address] 12326- 7532 May, Paranoid schizophrenia F20.0 [facility] [id number] [place] [address] 12966- 3270 May, Type 2 diabetes mellitus without complication, [...] N32.81 and Controlled substance agreement signed Z79.899 [place] [id number] [place] [address] 97624- 8975 May, Controlled substance agreement signed Z79.899 [place] [address] [place] [address]- 7990 Apr, [facility] [address] [place] [address] [id number] Apr, Dental examination Z01.20 [facility] [id number] [place] [address] 39875- 3422 Apr, Paranoid schizophrenia F20.0 [facility] [id number] [place] [address] 63066- 4521 Apr, Hypertension, unspecified type I10 [facility] [id number] [place] [address] 38333- 3210 Apr, Paranoid schizophrenia F20.0 [facility] [id number] [place] [address] 71637- 2657 Apr, [facility] [id number] [place] [address] 79235- 9915 Apr, Tobacco abuse Z72.0 [facility] [id number] [place] [address] 59169- 8187 Apr, [facility] [id number] [place] [address] 66863- 5814 Mar, [facility] [id number] [place] [address] 11928- 6226 Mar, Paranoid schizophrenia F20.0 and BMI 45.0-49.9, adult Z68.42 [facility] [id number] [place] [address] 44616- 2399 Mar, Schizoaffective disorder, depressive type F25.1 [facility] [id number] [place] [address] 20236- 5299 Mar, [facility] [id number] [place] [address] 48440- 2190 Mar, Hypothyroidism, unspecified type E03.9 [facility] [id number] [place] [address] 78839- 7381 Mar, Schizoaffective disorder, depressive type F25.1 [facility] [id number] [place] [address] 58146 -3306 Feb, Gastroenteritis K52.9 and BMI 45.0-49.9, adult Z68.42 [facility] [id number] [place] [address] 78308- 5055 Feb, [facility] [address] 55384- 3686 Feb, [place] [id number] [place] [address] 55293- 6894 Feb, [place] [id number] [place] [address] 43583- 5256 Feb, [place] [address] [place] [address] 39632- 8614 Feb, Paranoid schizophrenia F20.0 [facility] [id number] [place] [address] 78369- 8796 Feb, Gastroesophageal reflux disease without esophagitis K21.9 ; Other seasonal allergic rhinitis J30.2 ; Other allergic rhinitis J30.89 ; Tobacco abuse Z72.0 and BMI 40.0-44.9, adult Z68.41 [place] [address] [place] [address] 58327- 3798 Feb, Onychomycosis B35.1 ; Callus of foot L84 and DM neuro manif type II E11.49 [place] [id number] [place] [address] 35007- 0554 Jan, Chronic allergic rhinitis J30.9 [place] [id number] [place] [address] 20875- 3776 Jan, [facility] [id number] [place] [address] 96713- 6415 Jan, Schizoaffective disorder, depressive type F25.1 [place] [address] [address]- 1794 10 Jan, 2017 [facility] [id number] [place] [address] 79073 -2905 07 Jan, 2017 Sore throat J02.9 and Seasonal allergic rhinitis due to other allergic trigger J30.89 [facility] [id number] [place] [address] 66496- 3787 04 Jan, 2017 [facility] [id number] [place] [address] 07421- 5372 Jan, [facility] [id number] [place] [address] 29387 -9680 Jan, Chronic allergic rhinitis J30.9 [facility] [id number] [place] [address] 59724- 9286 27 Dec, 2016 Paranoid schizophrenia F20.0 ; Primary insomnia F51.01 and Schizoaffective disorder, depressive type F25.1 [place] [address] [place] [address] 30811- 4597 Dec, Chronic pain syndrome G89.4 ; Cervicalgia of occipito- atlanto-axial region M54.2 ; Menopausal syndrome (hot flashes) N95.1 and Encounter for immunization Z23 [facility] [id number] [place] [address] 56613- 1702 14 Dec, 2016 [place] [address] [place] [address] 86710- 5839 13 Dec, 2016 [place] [address] [place] [address] 99794- 4712 08 Dec, 2016 Paranoid schizophrenia F20.0 [place] [address] [place] [address] 39051- 2174 Dec, Schizoaffective disorder, depressive type F25.1 [facility] [id number] [place] [address] 21288- 7827 Nov, Hypothyroidism, unspecified type E03.9 [facility] [address], [place] [address]6168 Nov, Acute seasonal allergic rhinitis due to other allergen J30.89 [place] [address] [place] [address] 92209- 7694 Nov, [place] [id number] [place] [address] 04974- 6343 Nov, Hypothyroidism, unspecified type E03.9 and Other elevated white blood cell (WBC) count D72.828 [place] [address] [place] [address] 37909- 0811 Nov, Schizoaffective disorder, depressive type F25.1 [place] [address] [place] [address] 46907- 2196 Nov, Paranoid schizophrenia F20.0 [place] [id number] [place] [address] 95932- 4077 Nov, Type 2 diabetes mellitus without complication, without long- term current use of insulin E11.9 ; Morbid obesity due to excess calories E66.01 and Chronic pain syndrome G89.4 [place] [address] [place] [address] 97162- 2893 Oct, Paranoid schizophrenia F20.0 [place] [address] [place] [address] 82638- 1232 Oct, [place] [id number] [place] [address] 38710- 1431 Oct, Schizoaffective disorder, depressive type F25.1 [place] [address] [place] [address] 13574- 2378 Oct, Hypothyroidism, unspecified type E03.9 and Other elevated white blood cell (WBC) count D72.828 [place] [address] [place] [address] 34737- 9208 Oct, Morbid obesity due to excess calories E66.01 ; Chronic obstructive pulmonary disease, unspecified COPD type J44.9 ; History of lupus Z87.39 ; Hypothyroidism, unspecified type E03.9 ; Gastroesophageal reflux disease without esophagitis K21.9 ; Primary insomnia F51.01 and Chronic pain syndrome G89.4 [facility] [address], [place] [address]- 5006 Sep, [facility] [id number] [place] [address] 18507- 3978 Sep, [facility] [id number] [place] [address] 85296- 1499 Sep, [facility] [address] [place] [address] 68942- 4484 Sep, Paranoid schizophrenia F20.0 [facility] [id number] [place] [address] 28668- 8906 Sep, [facility] [id number] [place] [address] 78915- 7540 Sep, Paranoid schizophrenia F20.0 [facility] [id number] [place] [address] 70979- 4968 Sep, [facility] [id number] [place] [address] 27197- 9204 August, Paranoid schizophrenia F20.0 [facility] [address] [place] [address] 91271- 0277 Jul, [facility] [id number] [place] [address] 00335- 0966 Jul, Type 2 diabetes mellitus without complication, without long- term current use of insulin E11.9 ; Morbid obesity due to excess calories E66.01 ; Depression with anxiety F41.8 ; Hypothyroidism, unspecified type E03.9 ; Seasonal allergic rhinitis due to other allergic trigger J30.89 ; Pain, dental K08.89 and Gastroesophageal reflux disease without esophagitis K21.9 [facility] [address] [place] [address] [id number] Jul, Dental examination Z01.20 [place] [address], [place] [address]- 8902 07 Jul, 2016 Paranoid schizophrenia F20.0 [place] [address] [place] [address] 98103- 8353 13 Jun, 2016 Paranoid schizophrenia F20.0 and Depression with anxiety F41.8 [place] [id number] [place] [address] 43719- 8957 10 Jun, 2016 Paranoid schizophrenia F20.0 and Depression with anxiety F41.8 [place] [id number] [place] [address] 31533- 2492 09 Jun, 2016 [place] [id number] [place] [address] 52077- 7806 Jun, [facility] [place] [id number] [place] [address] 43041 -1203 Jun, Seasonal allergic rhinitis due to other allergic trigger J30.89 [facility] [place] [address] [place] [address] 35902 -8882 May, Sore throat J02.9 ; Other viral agents as the cause of diseases classified elsewhere B97.89 and Acute upper respiratory infection, unspecified J06.9 [place] [address] [place] [address]- 2584 May, Paranoid schizophrenia F20.0 and Depression with anxiety F41.8 [place] [address] [place] [address]- 7265 Apr, Other seasonal allergic rhinitis J30.2 [place] [address] [place] [id number] [place] [address] Apr, Paranoid schizophrenia F20.0 and Depression with anxiety F41.8 [facility] [id number], [place] [address] Apr, Bronchitis J40 and Sore throat J02.9 [facility] [id number] [place] [address] Apr, Type 2 diabetes mellitus without complication, without long- term current use of insulin E11.9 [facility] [address] [place] [id number] [place] [address] Apr, Bronchitis J40 [facility] [address] [address] Apr, [facility] [address] [address] Apr, [facility] [address] [address] Mar, Type 2 diabetes mellitus without complication, [...] R60.9 and Other seasonal allergic rhinitis J30.2 [place] [address] [place] [id number] [place] [address] Mar, Paranoid schizophrenia F20.0 and Depression with anxiety F41.8 [facility] [address] [place] [id number] [place] [address] Feb, [place] [address] [place] [id number] [place] [address] Feb, [place] [address] [place] [id number] [place] [address] 84630- 0789 Feb, [facility] [id number] [place] [address] 53959- 0218 Feb, [facility] [id number] [place] [address] 53998- 2096 Feb, Type 2 diabetes mellitus without complication, without long- term current use of insulin E11.9 ; ARIAS on CPAP G47.33 and Preoperative evaluation to rule out surgical contraindication Z01.818 [facility] [id number] [place] [address] 49623- 4589 09 Feb, 2016 Paranoid schizophrenia F20.0 and Depression with anxiety F41.8 [facility] [id number] [place] [address] 61451- 9151 Jan, [facility] [id number] [place] [address] 57833- 8686 18 Jan, 2016 Paranoid schizophrenia F20.0 and Depression with anxiety F41.8 [facility] [id number] [place] [address] 17223- 0935 17 Jan, 2016 [facility] [id number] [place] [address] 92911- 0400 Jan, Muscle strain T14.8 [facility] [id number] [place] [address] 29721- 5715 10 Jan, 2016 Paranoid schizophrenia F20.0 [facility] [id number] [place] [address] 92096- 7094 Jan, [facility] [id number] [place] [address] 11861- 7168 Jan, Paranoid schizophrenia F20.0 and Depression with anxiety F41.8 [facility] [id number] [place] [address] 95715- 8186 Jan, [facility] [id number] [place] [address] 41738- 8926 Jan, [facility] [id number] [place] [address] 18589- 6329 Dec, [facility] [id number] [place] [address] 74618- 7926 Dec, Paranoid schizophrenia F20.0 [facility] [address] [place] [address] 6414 16 Dec, 2015 Paranoid schizophrenia F20.0 and Depression with anxiety F41.8 [facility] [id number] [place] [address] 21765- 0556 Nov, [facility] [id number] [place] [address] 87537- 0434 Nov, Paranoid schizophrenia F20.0 [facility] [id number] [place] [address] 69064- 8100 Nov, Paranoid schizophrenia F20.0 and Depression with anxiety F41.8 [facility] [id number] [place] [address] 13171- 7429 Nov, Type 2 diabetes mellitus without complication, without long- term current use of insulin E11.9 ; Paranoid schizophrenia F20.0 ; Chronic obstructive pulmonary disease, unspecified COPD type J44.9 ; Morbid obesity due to excess calories E66.01 and Parkinsonian tremor G20 [facility] [address] [place] [address] 53826- 0724 Nov, [facility] [id number] [place] [address] 00353- 9025 Oct, Paranoid schizophrenia F20.0 [facility] [id number] [place] [address] 50435- 1886 Oct, Paranoid schizophrenia F20.0 [facility] [address] [place] [address] 53932- 1876 Oct, Paranoid schizophrenia F20.0 and Depression with anxiety F41.8 [facility] [id number] [place] [address] 37166- 5033 Oct, [facility] [id number] [place] [address] 72126- 8475 Oct, Paranoid schizophrenia F20.0 and Depression with anxiety F41.8 [facility] [id number] [place] [address] 74790- 4983 Oct, Nasal sore J34.89 [facility] [id number] [place] [address] 15036- 7373 Oct, Type 2 diabetes mellitus without complication, without long- term current use of insulin E11.9 ; Depression with anxiety F41.8 ; Hypothyroidism, unspecified type E03.9 and History of lupus Z87.39 [facility] [address] 56605- 9540 Oct, [facility] [address] 92799- 5670 Oct, Type 2 diabetes mellitus without complication, [...] edema R60.9 and History of lupus Z87.39 [facility] [id number] [place] [address] 25536- 6477 Feb, [facility] [id number] [place] [address] 43997- 6542 Jan, [facility] [id number] [place] [address] 05097- 6249 Jan, [facility] [id number] [place] [address] 07240- 1081 Jan, [facility] [address] 87428- 0343 Dec, [facility] [id number] [place] [address] 46974- 2758 Nov, [facility] [address] 49849- 3473 Nov, [facility] [address] [id number] [address] 3959 Oct, [facility] [address] [id number] [address]- 8976 Oct, [facility] [address] [place] [address]- 7305 Oct, [facility] [id number] [place] [address] 49750- 4488 Sep, Allergic rhinitis 477.9 [facility] [id number] [place] [address] 60969- 4605 Sep, Rhinitis, allergic 477.9 [facility] [address] [address]- 6495 Sep, Rhinitis, allergic 477.9 [facility] [address], [place] [address]- 3166 Sep, [facility] [place] [facility] [address], [place] [address]- 2207 August, [facility] [address], [place] [address]- 0141 August, [facility] [address], [place] [address]- 0977 August, [facility] [place] [facility] [address] [place] [address]- 5229 28 Jul, 2014 [facility] [place] [facility] [id number] [address]- 5349 14 Jul, 2014 [facility] [place] [facility] [address] [place] [address]- 6013 13 Jul, 2014 [facility] [place] [facility] [id number] 6765 16 Jun, 2014 [facility] [place] [facility] [address], [place] [address]- 8110 16 Jun, 2014 [facility] [place] [facility] [address] [id number] [place] [address]- 4373 Jun, [facility] [place] [facility] [address] [id number] [place] [address]- 8203 Jun, [facility] [place] [facility] [address] [facility] [id number] [place] [address]- 7329 Jun, [facility] [place] [facility] [address] [id number] [place] [address]- 6622 Jun, [facility] [place] [facility] [address] [id number] [place] [address]- 1772 Jun, [facility] [place] [facility] [address] [id number] [place] [address]- 7155 Jun, [facility] [place] [facility] [address] [facility] [id number] [place] [address]- 8309 May, [facility] [place] [facility] [address] [facility] [id number] [place] [address]- 7315 May, [facility] [place] [facility] [address] [facility] [id number] [place] [address]- 3207 May, [facility] [place] [facility] [address] [facility] [id number] [place] [address]- 7348 May, [facility] [place] [facility] [address] [facility] [id number] [place] [address]- 2202 Apr, [facility] [place] [facility] [address] [facility] [id number] [place] [address]- 7003 Mar, [facility] [place] [facility] [address] [id number] [place] [address]- 6667 Mar, [facility] [place] [facility] [address] [facility] [id number] [place] 3710 Mar, [facility] [place] [facility] [address] [facility] [id number] [place] 4679 Mar, [facility] [place] [facility] [address] [id number] [place] 3133 Mar, [facility] [place] [facility] [address] [id number] [place] [address]- 2998 Mar, [facility] [place] [facility] [address] [id number] [place] [address]- 9888 Mar, [facility] [place] [facility] [address] [id number] [place] [address]- 5365 Mar, [facility] [place] [facility] [address] [id number] [place] [address]- 0545 Mar, [facility] [place] [facility] [address] [id number] [place] [address]- 0792 Feb, [facility] [place] [facility] [address] [id number] [place] [address]- 1459 Feb, [facility] [place] [facility] [address] [id number] [place] [address]- 1866 Feb, [facility] [place] [facility] [address] [id number] [place] [address]- 4051 Feb, [facility] [place] [facility] [address] [id number] [place] [address]- 5453 Feb, [facility] [place] [facility] [address] [id number] [place] [address]- 4893 Feb, [facility] [place] [facility] [address] [id number] [place] [address]- 2116 Feb, [facility] [place] [facility] [address] [id number] [place] [address]- 1868 Feb, [facility] [place] [facility] [address] [id number] [place] [address]- 5970 Jan, [facility] [place] [facility] [address] [id number] [place] [address]- 7708 Jan, [facility] [place] [facility] [address] [id number] [place] [address]- 7608 16 Jan, 2014 [facility] [place] [facility] [address] [id number] [place] [address]- 0144 16 Jan, 2014 [facility] [place] [facility] [address] [id number] [place] [address]- 6766 15 Jan, 2014 [facility] [place] [facility] [address] [id number] [place] [address]- 8350 15 Jan, 2014 [facility] [place] [facility] [address] [id number] [place] [address]- 0723 14 Jan, 2014 [facility] [place] [facility] [address] [id number] [place] [address]- 4572 14 Jan, 2014 [facility] [place] [facility] [address] [id number] [place] [address]- 3501 14 Jan, 2014 [facility] [place] [facility] [address] [id number] [place] [address]- 1725 14 Jan, 2014 [facility] [place] [facility] [address] [id number] [place] [address]- 4091 18 Dec, 2013 [facility] [place] [facility] [address] [id number] [place] [address]- 3533 18 Dec, 2013 [facility] [place] [facility] [address] [id number] [place] [address]- 9580 10 Dec, 2013 [facility] [place] [facility] [address] [id number] [place] [address]- 1188 Dec, [facility] [place] [facility] [address] [id number] [address]- 1108 Nov, [facility] [place] [facility] [address] [id number] [place] [address]- 4797 Nov, [facility] [place] [facility] [address] [id number] [place] [address]- 6220 Nov, [facility] [place] [facility] [address] [id number] [place] [address]- 0000 Nov, [facility] [place] [facility] [address] [id number] [place] [address]- 0599 Nov, [facility] [place] [facility] [address] [id number] [place] [address]- 4380 Oct, [facility] [place] [facility] [address] [id number] [place] [address]- 4499 Oct, [facility] [place] [facility] [address] [id number] [place] [address]- 2568 Oct, [facility] [place] [facility] [address] [id number] [place] [address]- 4882 Oct, [facility] [place] [facility] [address] [id number] [place] [address]- 9812 Sep, [facility] [place] [facility] [address] [id number] [place] [address]- 1140 Sep, [facility] [place] [facility] [address] [id number] [place] [address]- 0941 Sep, [facility] [place] [facility] [address] [id number] [place] [address]- 8649 Sep, [facility] [place] [facility] [address] [id number] [place] [address]- 3004 Sep, [facility] [place] [facility] [address] [id number] [place] [address]- 5516 Sep, [facility] [place] [facility] [address] [id number] [place] [address]- 7427 Sep, [facility] [place] [facility] [address] [id number] [place] [address]- 2830 Sep, [facility] [place] [facility] [address] [id number] [place] [address]- 1841 August, [facility] [place] [facility] [address] [id number] [place] [address]- 7516 August, [facility] [place] [facility] [address] [id number] [place] [address]- 0433 August, [facility] [place] [facility] [address] [id number] [place] [address]- 0310 August, [facility] [place] [facility] [address] [id number] [place] [address]- 5919 August, [facility] [place] [facility] [address] [id number] [place] [address]- 0783 August, [facility] [place] [facility] [address] [id number] [place] [address]- 3252 August, [facility] [place] [facility] [address] [id number] [place] [address]- 6053 Jul, [facility] [place] [facility] [address] [id number] [place] [address]- 3056 Jul, [facility] [place] [facility] [address] [id number] [place] [address]- 5463 Jul, [facility] [place] [facility] [address] [id number] [place] [address]- 0193 Jul, [facility] [place] [facility] [address] [id number] [place] [address]- 3791 Jul, [facility] [place] [facility] [address] [id number] [place] [address]- 5860 Jul, [facility] [place] [facility] [address] [id number] [place] [address]- 5655 Jul, [facility] [place] [facility] [address] [id number] [place] [address]- 2357 Jul, [facility] [place] [facility] [address] [id number] [place] [address]- 0426 Jul, [facility] [place] [facility] [address] [id number] [place] [address]- 8305 Jul, [facility] [place] [facility] [address] [id number] [place] [address]- 5037 Jul, [facility] [place] [facility] [address] [id number] [place] [address]- 5726 Jul, [facility] [place] [facility] [address] [id number] [place] [address]- 1052 Jun, [facility] [place] [facility] [address] [id number] [place] 1786 Jun, [facility] [place] [facility] [address] [facility] [id number] [place] [address]- 5262 Jun, [facility] [place] [facility] [address] [id number] [place] [address]- 7477 Jun, [facility] [place] [facility] [address] [id number] [place] [address]- 0567 Jun, [facility] [place] [facility] [address] [id number] [place] [address]- 8261 May, [facility] [place] [facility] [address] [facility] [id number] [place] [address]- 6763 May, [facility] [place] [facility] [address] [facility] [id number] [place] [address]- 5371 May, [facility] [place] [facility] [address] [facility] [id number] [place] [address]- 3831 May, [facility] [place] [facility] [address] [facility] [id number] [place] [address]- 4741 May, [facility] [place] [facility] [address] [facility] [id number] [place] [address]- 7901 May, [facility] [place] [facility] [address] [facility] [id number] [place] [address]- 8748 May, [facility] [place] [facility] [address] [facility] [id number] [place] [address]- 0747 May, [facility] [place] [facility] [address] [facility] [id number] [place] [address]- 1231 Mar, [facility] [place] [facility] [address] [facility] [id number] [place] [address]- 2675 Mar, [facility] [place] [facility] [address] [id number] [place] [address]- 8101 Mar, [facility] [place] [facility] [address] [id number] [place] [address]- 4790 Mar, [facility] [place] [facility] [address] [id number] [place] [address]- 0057 Mar, [facility] [place] [facility] [address] [id number] [place] [address]- 8524 Mar, [facility] [place] [facility] [address] [id number] [place] [address]- 4550 Feb, [facility] [place] [facility] [address] [id number] [place] [address]- 6268 Feb, [facility] [place] [facility] [address] [id number] [place] [address]- 7906 Jan, [facility] [place] [facility] [address] [id number], [place] [address]- 7084 Jan, [facility] [place] [facility] [address] [id number], [place] [address]- 7782 Jan, [facility] [place] [facility] [address] [id number], [place] [address]- 7350 Jan, [facility] [place] [facility] [address] [id number], [place] [address]- 4718 Jan, [facility] [place] [facility] [address] [id number], [place] [address]- 3680 Jan, [facility] [place] [facility] [address] [id number], [place] [address]- 0367 Jan, [facility] [place] [facility] [address] [id number], [place] [address]- 0589 Jan, [facility] [place] [facility] [address] [id number], [place]- 2704 08 Jan, 2013 [facility] [place] [facility] [address] [id number], [place] [address]- 1629 Jan, [facility] [address] [id number] [place] [address]- 6889 Dec, [facility] [place] [facility] [address] [id number] [place] [address]- 2054 Nov, [facility] [place] [facility] [address] [id number] [place] [address]- 3647 Nov, [facility] [place] [facility] [address] [id number] [place] [address]- 9157 Nov, [facility] [place] [facility] [address] [id number] [place] [address]- 7282 Oct, [facility] [place] [facility] [address] [id number] [place] [address]- 8292 Oct, [facility] [address] [id number] [place] [address]- 6358 August, [facility] [place] [facility] [address] [id number] [place] [address]- 8044 Apr, [facility] [address] [id number] [place] [address]- 8829 Apr, [facility] [place] [facility] [address] [id number] [place] [address]- 2301 Feb, [facility] [place] [facility] [address] [id number] [place] [address]- 4773 Feb, [facility] [place] [facility] [address] [id number] [place] [address]- 6076 Dec, [facility] [place] [facility] [address] [id number] [place] [address]- 9315 Dec, [facility] [place] [facility] [address] [id number] [place] 2277 Oct, [facility] [place] [facility] [address] [id number] [place] [address]- 0703 Oct, [facility] [place] [facility] [address] [facility] [id number] [place] [address] 8580 Oct, [facility] [address] [facility] [id number] [place] [address] 6764 Jul, IMMUNIZATIONS No Known Immunizations SOCIAL HISTORY Never Assessed REASON FOR VISIT Medication refill PLAN OF CARE VITAL SIGNS MEDICATIONS Medication Instructions Dosage Frequency Start Date End Date Duration Status Triamcinolone Acetonide 0.5 % Externally Once a day apply thin layer to rash 24h Active Norvasc 10 mg Orally Once a day 1 tablet 24h 90 days Active RESULTS No Results PROCEDURES No Known [...] for psychosis/mental illness , last one in [facility] 4 years ago
--- OUTSIDE RECORDS SUMMARY | 2018-09-02 13:15 | XMS REPORT ---
Author Author ALAYNA KO [facility] Address [address] [place] [address] Care Team Providers Care Computer Systems Security Administrator Name Role Phone ALAYNA KO Unavailable PROBLEMS Type Condition ICD9-CM Code [id number] Code Onset Dates Condition Status SNOMED Code Problem OAB (overactive bladder) N32.81 Active 830315899 Problem Depression with anxiety F41.8 Active 386130487 Problem Other seasonal allergic rhinitis J30.2 Active 640582661 Problem Chronic obstructive pulmonary disease, unspecified COPD type J44.9 Active 18809694 Problem Tobacco abuse Z72.0 Active 123925715 Problem Morbid obesity due to excess calories E66.01 Active 634630913 Problem Dyslipidemia E78.5 Active 248856434 Problem Hypothyroidism (acquired) E03.9 Active 192197506 Problem Essential hypertension I10 Active 14388350 Problem Diabetic polyneuropathy associated with type 2 diabetes mellitus E11.42 Active 962317160 Problem Type 2 diabetes mellitus with diabetic neuropathic arthropathy, 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 Active 644773955 Problem Type 2 diabetes mellitus without complication, without long-term current use of insulin E11.9 Active 392816727 Problem Paranoid schizophrenia F20.0 Active 80514930 Problem Chronic pain syndrome G89.4 Active 086499066 Problem Migraine without aura and without status migrainosus, not intractable G43.009 Active 212006325 Problem Gastroesophageal reflux disease, esophagitis presence not specified K21.9 Active 076461714 Problem Seasonal allergic rhinitis due to pollen J30.1 Active 23372792 Problem COPD exacerbation J44.1 Active 519711230 Problem Seasonal allergic rhinitis due to other allergic trigger J30.89 Active 698347781 Problem Schizoaffective disorder, depressive type F25.1 Active 42709039 Problem History of lupus Z87.39 Active 024243224 Problem Gastroesophageal reflux disease without esophagitis K21.9 Active 651960111 Problem Menopausal syndrome (hot flashes) N95.1 Active 561471062 Problem Other allergic rhinitis J30.89 Active 942606801 Problem Primary insomnia F51.01 Active 6058947 Problem DM neuro manif type II E11.49 Active 72028120 ALLERGIES No Information ENCOUNTERS Encounter Location Date Diagnosis [facility] [id number] [place] [address] 35426- 7031 Jan, [facility] [address] 71386- 2071 Jan, [facility] [address] 23627- 0064 Jan, [place] [address] 36290- 8806 Jan, Paranoid schizophrenia F20.0 [place] [address] 08134- 1524 Jan, [facility] [address] 13815- 6157 Jan, Schizoaffective disorder, depressive type F25.1 [facility] [address] 91623- 1655 Jan, [facility] [address] 24523- 1116 02 Jan, 2018 Chronic obstructive pulmonary disease, unspecified COPD type J44.9 ; BMI 45.0-49.9, adult Z68.42 ; Type 2 diabetes mellitus without complication, without long-term current use of insulin E11.9 ; Hypothyroidism ( acquired) E03.9 ; Encounter for immunization Z23 ; Gastroesophageal reflux disease without esophagitis K21.9 ; Primary insomnia F51.01 and Acute nasopharyngitis J00 [facility] [id number] [place] [address] 02136- 4648 Dec, [facility] [id number] [place] [address] 66231- 2202 Dec, Schizoaffective disorder, depressive type F25.1 and BMI 45.0 -49.9, adult Z68.42 [facility] [id number] [place] [address] 13637- 3557 Dec, [facility] [id number] [place] [address] 39483- 5459 18 Dec, 2017 [facility] [id number] [place] [address] 79832- 8899 18 Dec, 2017 Acute non-recurrent frontal sinusitis J01.10 [facility] [id number] [place] [address] 45703- 1061 18 Dec, 2017 Acute non-recurrent frontal sinusitis J01.10 ; Weakness of left leg R29.898 ; At high risk for falls Z91.81 and BMI 45.0-49.9, adult Z68.42 [facility] [id number] [place] [address] 37809- 2997 17 Dec, 2017 [facility] [id number] [place] [address] 07631- 7162 Dec, [facility] [id number] [place] [address] 55907- 6331 Dec, Schizoaffective disorder, depressive type F25.1 [facility] [id number] [place] [address] 84151 -8043 Dec, Acute nasopharyngitis J00 [facility] [id number] [place] [address] 24729- 0909 05 Dec, 2017 Schizoaffective disorder, depressive type F25.1 [facility] [id number] [place] [address] 69082- 6991 Dec, [facility] [id number] [place] [address] 44241- 3894 Nov, Schizoaffective disorder, depressive type F25.1 and BMI 45.0 -49.9, adult Z68.42 [facility] [id number] [place] [address] 30894- 3388 Nov, [place] [address] [address]- 7428 Nov, [place] [id number] [place] [address] 38878- 9416 Nov, Schizoaffective disorder, depressive type F25.1 [place] [address] [place] [address] 09769- 5779 Nov, Well woman exam Z01.419 ; BMI 45.0-49.9, adult Z68.42 ; Screening breast examination Z12.31 and Dietary counseling and surveillance Z71.3 [place] [id number] [place] [address] 93040- 3174 Nov, Paranoid schizophrenia F20.0 [place] [id number] [place] [address] 11802- 6029 Nov, Gastroesophageal reflux disease, esophagitis presence not specified K21.9 [place] [address] [place] [address] 80309- 3401 Oct, Paranoid schizophrenia F20.0 [place] [address] [id number] [place] [address] Oct Chronic pain syndrome G89.4 and Schizoaffective disorder, depressive type F25.1 [place] [address] [place] [address] 83301- 4771 Oct, Chronic pain syndrome G89.4 and Schizoaffective disorder, depressive type F25.1 [place] [address] [place] [address] 60532- 2872 Oct, Type 2 diabetes mellitus without complication, without long- term current use of insulin E11.9 [place] [address] [place] [address] 42188- 2545 Oct, Essential hypertension I10 and DM neuro manif type II E11.49 [place] [id number] [place] [address] 37864- 6060 Oct, [facility] [address] [place] [address] 68061- 6986 Oct, Schizoaffective disorder, depressive type F25.1 and BMI 45.0 -49.9, adult Z68.42 [facility] [id number] [place] [address] 44459- 5208 Oct, [facility] [id number] [place] [address] 17899- 9430 Oct, Paranoid schizophrenia F20.0 [place] [id number] [place] [address] 71564- 4059 Oct, Type 2 diabetes mellitus with diabetic neuropathic arthropathy, 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 ; Essential hypertension I10 ; Hypothyroidism (acquired) E03.9 ; Chronic obstructive pulmonary disease, unspecified COPD type J44.9 and Diabetic polyneuropathy associated with type 2 diabetes mellitus E11.42 [place] [id number] [place] [address] 95068- 2716 Sep, Paranoid schizophrenia F20.0 [place] [id number] [place] [address] 44213- 5104 Sep, Paranoid schizophrenia F20.0 and BMI 45.0-49.9, adult Z68.42 [facility] [address] [address] 1777 Sep, Schizoaffective disorder, depressive type F25.1 [facility] [address] [address] 0027 Sep, [facility] [id number] [place] [address] 24603- 2967 Sep, Paranoid schizophrenia F20.0 [facility] [id number] [place] [address] 73622- 4317 Sep, [facility] [id number] [place] [address] 34809- 0562 Sep, Hypothyroidism (acquired) E03.9 [facility] [id number] [place] [address] 84301- 4906 Sep, [facility] [id number] [place] [address] 72149- 2904 August, Schizoaffective disorder, depressive type F25.1 [facility] [address] 80536- 5110 August, [facility] [address] 52889- 3344 August, [facility] [address] 01160- 3289 August, [facility] [address] 62344- 2469 August, Paranoid schizophrenia F20.0 [facility] [address] 22966- 1610 August, History of lupus Z87.39 and Chronic pain syndrome G89.4 [facility] [id number] [place] [address] 68659- 1271 August, [facility] [id number] [place] [address] 38958 -4736 August, Seasonal allergic rhinitis, unspecified trigger J30.2 and BMI 45.0-49.9, adult Z68.42 [facility] [id number] [place] [address] 97561- 6425 Jul, Schizoaffective disorder, depressive type F25.1 [facility] [id number] [place] [address] 03189- 1341 Jul, [facility] [id number] [place] [address] 38381- 9925 Jul, Hypothyroidism (acquired) E03.9 [facility] [id number] [place] [address] 45114- 7990 Jul, Chronic obstructive pulmonary disease, unspecified COPD type J44.9 and Type 2 diabetes mellitus without complication, without long-term current use of insulin E11.9 [place] [address] 99318- 1889 Jul, Paranoid schizophrenia F20.0 [place] [address] 94875- 4295 Jun, Hypothyroidism (acquired) E03.9 and Seasonal allergic rhinitis due to pollen J30.1 [facility] [address] 37775 -1273 Jun, Shortness of breath at rest R06.02 ; COPD exacerbation J44.1 and BMI 45.0-49.9, adult Z68.42 [place] [address] 48256- 1456 Jun, [place] [address] 96154- 6148 Jun, Paranoid schizophrenia F20.0 ; Depression with anxiety F41.8 and BMI 45.0-49.9, adult Z68.42 [place] [address] 72714- 0094 Jun, Schizoaffective disorder, depressive type F25.1 [facility] [address] [id number] Jun, Dental caries K02.9 [place] [address] 61070- 2403 Jun, Paranoid schizophrenia F20.0 [place] [address] 13234- 0647 May, Migraine without aura and without status migrainosus, not intractable G43.009 ; DM neuro manif type II E11.49 and Type 2 diabetes mellitus without complication, without long-term current use of insulin E11.9 [place] [address] [place] [address]- 9364 May, Migraine without aura and without status migrainosus, not intractable G43.009 [facility] [id number] [place] [address] 73124- 8916 May, Depression with anxiety F41.8 [facility] [address] [place] [address] [id number] May, [facility] [id number] [place] [address] 91139- 6672 May, [place] [address] 54188- 1467 May, [place] [address] 92624- 9744 May, Hypothyroidism (acquired) E03.9 [place] [address] 42186- 8239 May, Paranoid schizophrenia F20.0 [facility] [id number] [place] [address] 97218- 5434 May, Type 2 diabetes mellitus without complication, [...] N32.81 and Controlled substance agreement signed Z79.899 [place] [id number] [place] [address] 53912- 6749 May, Controlled substance agreement signed Z79.899 [place] [id number] [place] [address] 37821- 6872 Apr, [facility] [address] [id number] Apr, Dental examination Z01.20 [facility] [id number] [place] [address] 69274- 8549 Apr, Paranoid schizophrenia F20.0 [facility] [id number] [place] [address] 12128- 6414 Apr, Hypertension, unspecified type I10 [facility] [id number] [place] [address] 49601- 8479 Apr, Paranoid schizophrenia F20.0 [facility] [id number] [place] [address] 81820- 3376 Apr, [facility] [id number] [place] [address] 75550- 4806 Apr, Tobacco abuse Z72.0 [facility] [id number] [place] [address] 48078- 9260 Apr, [facility] [id number] [place] [address] 49209- 2556 Mar, [facility] [id number] [place] [address] 61070- 0117 Mar, Paranoid schizophrenia F20.0 and BMI 45.0-49.9, adult Z68.42 [facility] [address] [place] [address] 68070- 3915 Mar, Schizoaffective disorder, depressive type F25.1 [facility] [id number] [place] [address] 11517- 2255 Mar, [facility] [id number] [place] [address] 69597- 3271 Mar, Hypothyroidism, unspecified type E03.9 [facility] [id number] [place] [address] 11511- 8981 Mar, Schizoaffective disorder, depressive type F25.1 [facility] [id number] [place] [address] 94562 -9013 Feb, Gastroenteritis K52.9 and BMI 45.0-49.9, adult Z68.42 [facility] [id number] [place] [address] 74881- 4669 Feb, [facility] [address] 47319- 0734 Feb, [place] [address] 41804- 0879 Feb, [place] [address] 60671- 7326 Feb, [place] [address] 11804- 7624 Feb, Paranoid schizophrenia F20.0 [facility] [id number] [place] [address] 67320- 7045 Feb, Gastroesophageal reflux disease without esophagitis K21.9 ; Other seasonal allergic rhinitis J30.2 ; Other allergic rhinitis J30.89 ; Tobacco abuse Z72.0 and BMI 40.0-44.9, adult Z68.41 [place] [id number] [place] [address] 36482- 5167 Feb, Onychomycosis B35.1 ; Callus of foot L84 and DM neuro manif type II E11.49 [facility] [id number] [place] [address] 43825- 9797 Jan, Chronic allergic rhinitis J30.9 [place] [address] 36896- 0834 Jan, [facility] [id number] [place] [address] 93109- 0647 Jan, Schizoaffective disorder, depressive type F25.1 [facility] [address] [address]- 9709 10 Jan, 2017 [facility] [id number] [place] [address] 03932 -1121 07 Jan, 2017 Sore throat J02.9 and Seasonal allergic rhinitis due to other allergic trigger J30.89 [facility] [id number] [place] [address] 73253- 5733 04 Jan, 2017 [facility] [id number] [place] [address] 61247- 0786 Jan, [facility] [id number] [place] [address] 66295 -2680 Jan, Chronic allergic rhinitis J30.9 [facility] [id number] [place] [address] 31494- 3420 27 Dec, 2016 Paranoid schizophrenia F20.0 ; Primary insomnia F51.01 and Schizoaffective disorder, depressive type F25.1 [facility] [id number] [place] [address] 23661- 4024 Dec, Chronic pain syndrome G89.4 ; Cervicalgia of occipito- atlanto-axial region M54.2 ; Menopausal syndrome (hot flashes) N95.1 and Encounter for immunization Z23 [facility] [id number] [place] [address] 02486- 1713 14 Dec, 2016 [place] [id number] [place] [address] 54054- 5426 13 Dec, 2016 [place] [id number] [place] [address] 55546- 6706 08 Dec, 2016 Paranoid schizophrenia F20.0 [place] [id number] [place] [address] 96203- 4269 Dec, Schizoaffective disorder, depressive type F25.1 [facility] [id number] [place] [address] 41280- 0502 Nov, Hypothyroidism, unspecified type E03.9 [facility] [address], [place] [address]3184 Nov, Acute seasonal allergic rhinitis due to other allergen J30.89 [place] [address] [place] [address] 22417- 7942 Nov, [facility] [id number] [place] [address] 17503- 0765 Nov, Hypothyroidism, unspecified type E03.9 and Other elevated white blood cell (WBC) count D72.828 [place] [id number] [place] [address] 43885- 8877 Nov, Schizoaffective disorder, depressive type F25.1 [place] [id number] [place] [address] 85143- 4685 Nov, Paranoid schizophrenia F20.0 [place] [id number] [place] [address] 00776- 3451 Nov, Type 2 diabetes mellitus without complication, without long- term current use of insulin E11.9 ; Morbid obesity due to excess calories E66.01 and Chronic pain syndrome G89.4 [place] [id number] [place] [address] 59019- 7453 Oct, Paranoid schizophrenia F20.0 [place] [id number] [place] [address] 19742- 7344 Oct, [place] [id number] [place] [address] 44429- 0992 Oct, Schizoaffective disorder, depressive type F25.1 [place] [id number] [place] [address] 02047- 7717 Oct, Hypothyroidism, unspecified type E03.9 and Other elevated white blood cell (WBC) count D72.828 [place] [id number] [place] [address] 57816- 3376 Oct, Morbid obesity due to excess calories E66.01 ; Chronic obstructive pulmonary disease, unspecified COPD type J44.9 ; History of lupus Z87.39 ; Hypothyroidism, unspecified type E03.9 ; Gastroesophageal reflux disease without esophagitis K21.9 ; Primary insomnia F51.01 and Chronic pain syndrome G89.4 [facility] [address] [place] [address] 80678- 7799 Sep, [facility] [id number] [place] [address] 80836- 0315 Sep, [facility] [id number] [place] [address] 44784- 8819 Sep, [facility] [id number] [place] [address] 92724- 5106 Sep, Paranoid schizophrenia F20.0 [facility] [id number] [place] [address] 92645- 6253 Sep, [facility] [id number] [place] [address] 99725- 5032 Sep, Paranoid schizophrenia F20.0 [facility] [id number] [place] [address] 18836- 1540 Sep, [facility] [id number] [place] [address] 64134- 9372 August, Paranoid schizophrenia F20.0 [facility] [id number] [place] [address] 22617- 4172 Jul, [facility] [id number] [place] [address] 97182- 6030 Jul, Type 2 diabetes mellitus without complication, without long- term current use of insulin E11.9 ; Morbid obesity due to excess calories E66.01 ; Depression with anxiety F41.8 ; Hypothyroidism, unspecified type E03.9 ; Seasonal allergic rhinitis due to other allergic trigger J30.89 ; Pain, dental K08.89 and Gastroesophageal reflux disease without esophagitis K21.9 [facility] [id number] [place] [address] [id number] Jul, Dental examination Z01.20 [facility] [address], [place] [address]- 7251 07 Jul, 2016 Paranoid schizophrenia F20.0 [place] [id number] [place] [address] 07046- 6349 13 Jun, 2016 Paranoid schizophrenia F20.0 and Depression with anxiety F41.8 [place] [id number] [place] [address] 47484- 0175 10 Jun, 2016 Paranoid schizophrenia F20.0 and Depression with anxiety F41.8 [place] [id number] [place] [address] 58795- 2367 09 Jun, 2016 [place] [id number] [place] [address] 30406- 4880 Jun, [facility] [place] [id number] [place] [address] 12709 -5825 Jun, Seasonal allergic rhinitis due to other allergic trigger J30.89 [facility] [place] [id number] [place] [address] 91112 -8472 May, Sore throat J02.9 ; Other viral agents as the cause of diseases classified elsewhere B97.89 and Acute upper respiratory infection, unspecified J06.9 [place] [address], [place] [address]- 0501 May, Paranoid schizophrenia F20.0 and Depression with anxiety F41.8 [place] [address] [place] [address] 93286- 2047 Apr, Other seasonal allergic rhinitis J30.2 [place] [id number] [place] [address] 80921- 4961 Apr, Paranoid schizophrenia F20.0 and Depression with anxiety F41.8 [facility] [id number] [place] [address] 01912 -6542 Apr, Bronchitis J40 and Sore throat J02.9 [facility] [address] [place] [address] 36667- 5150 Apr, Type 2 diabetes mellitus without complication, without long- term current use of insulin E11.9 [facility] [address] [place] [address] 17014 -1557 Apr, Bronchitis J40 [facility] [id number] [place] [address] [id number] Apr, [facility] [id number] [place] [address] [id number]- 3064 Apr, [place] [address] [address] Mar, Type 2 diabetes mellitus without complication, [...] R60.9 and Other seasonal allergic rhinitis J30.2 [place] [id number] [place] [address] 11554- 1661 Mar, Paranoid schizophrenia F20.0 and Depression with anxiety F41.8 [facility] [id number] [place] [address] [phone]- 6271 Feb, [facility] [id number] [place] [address] [phone]- [phone] Feb, [place] [id number] [place] [address] [id number]- 1844 Feb, [place] [id number] [place] [address] [phone]- [phone] Feb, [facility] [id number] [place] [id number]- 5901 Feb, Type 2 diabetes mellitus without complication, without long- term current use of insulin E11.9 ; ARIAS on CPAP G47.33 and Preoperative evaluation to rule out surgical contraindication Z01.818 [facility] [id number] [place] [address] 32949- 2848 09 Feb, 2016 Paranoid schizophrenia F20.0 and Depression with anxiety F41.8 [facility] [id number] [place] [address] 99822- 7704 Jan, [facility] [id number] [place] [address] 97442- 9577 18 Jan, 2016 Paranoid schizophrenia F20.0 and Depression with anxiety F41.8 [facility] [address] 66578- 5110 17 Jan, 2016 [facility] [address] 47315- 0946 14 Jan, 2016 Muscle strain T14.8 [facility] [id number] [place] [address] 68253- 1168 10 Jan, 2016 Paranoid schizophrenia F20.0 [facility] [id number] [place] [address] 85274- 7529 07 Jan, 2016 [facility] [id number] [place] [address] 29063- 3688 Jan, Paranoid schizophrenia F20.0 and Depression with anxiety F41.8 [facility] [id number] [place] [address] 19317- 4984 05 Jan, 2016 [facility] [id number] [place] [address] 08462- 5037 Jan, [facility] [id number] [place] [address] 55637- 5079 Dec, [facility] [id number] [place] [address] 16887- 7845 Dec, Paranoid schizophrenia F20.0 [facility] [address] [place] [address]- 2167 16 Dec, 2015 Paranoid schizophrenia F20.0 and Depression with anxiety F41.8 [facility] [id number] [place] [address] 18074- 2162 Nov, [facility] [id number] [place] [address] 83428- 2007 Nov, Paranoid schizophrenia F20.0 [facility] [id number] [place] [address] 10653- 5339 Nov, Paranoid schizophrenia F20.0 and Depression with anxiety F41.8 [place] [facility] [id number] [place] [address] 93631- 6610 05 Nov, 2015 Type 2 diabetes mellitus without complication, without long- term current use of insulin E11.9 ; Paranoid schizophrenia F20.0 ; Chronic obstructive pulmonary disease, unspecified COPD type J44.9 ; Morbid obesity due to excess calories E66.01 and Parkinsonian tremor G20 [facility] [id number] [place] [address] 53830- 6657 Nov, [facility] [id number] [place] [address] 78380- 9150 Oct, Paranoid schizophrenia F20.0 [facility] [facility] [id number] [place] [address] 38860- 6520 Oct, Paranoid schizophrenia F20.0 [facility] [id number] [place] [address] 34564- 5978 Oct, Paranoid schizophrenia F20.0 and Depression with anxiety F41.8 [facility] [id number] [place] [address] 04218- 9107 Oct, [facility] [id number] [place] [address] 98431- 6140 Oct, Paranoid schizophrenia F20.0 and Depression with anxiety F41.8 [facility] [id number] [place] [address] 31076- 8472 Oct, Nasal sore J34.89 [facility] [id number] [place] [address] 31466- 6884 Oct, Type 2 diabetes mellitus without complication, without long- term current use of insulin E11.9 ; Depression with anxiety F41.8 ; Hypothyroidism, unspecified type E03.9 and History of lupus Z87.39 [facility] [facility] [address] 17003- 9354 Oct, [facility] [facility] [id number] [place] [address] 06674- 2749 Oct, Type 2 diabetes mellitus without complication, [...] edema R60.9 and History of lupus Z87.39 [place] [facility] [id number] [place] [address] 66249- 3241 Feb, [place] [id number] [place] [address] 11049- 2492 Jan, [place] [id number] [place] [address] 97849- 0746 Jan, [place] [id number] [place] [address] 60716- 3884 Jan, [place] [facility] [address] 36383- 7222 Dec, [place] [facility] [id number] [place] [address] 15366- 7121 Nov, [place] [address] 55840- 5601 Nov, [facility] [id number] [address]- 6130 Oct, [facility] [address] 5353 Oct, [facility] [address], [place] [address]- 3050 Oct, [facility] [id number] [place] [address] 12942- 5682 Sep, Allergic rhinitis 477.9 [facility] [id number] [place] [address] 56893- 1642 Sep, Rhinitis, allergic 477.9 [facility] [address] [address]- 2336 Sep, Rhinitis, allergic 477.9 [facility] [address] [address]- 9059 Sep, [facility] [address] [address]- 0340 August, [facility] [address], [place] [address]- 1670 August, [facility] [address], [place] [address]- 0522 August, [facility] [place] [facility] [address], [place] [address]- 0747 28 Jul, 2014 [facility] [place] [facility] [id number] [address]- 1332 14 Jul, 2014 [facility] [place] [facility] [id number] [address]- 1052 13 Jul, 2014 [facility] [place] [facility] [id number] 5773 16 Jun, 2014 [facility] [place] [facility] [address], [place] [address]- 2340 16 Jun, 2014 [facility] [place] [facility] [address] [id number] [place] [address]- 4865 Jun, [facility] [place] [facility] [address] [id number] [place] [address]- 1187 Jun, [facility] [place] [facility] [address] [facility] [id number] [place] [address]- 0455 Jun, [facility] [place] [facility] [address] [id number] [place] [address]- 4168 Jun, [facility] [place] [facility] [address] [id number] [place] [address]- 9610 Jun, [facility] [place] [facility] [address] [facility] [id number] [place] [address]- 0312 Jun, [facility] [place] [facility] [address] [facility] [id number] [place] [address]- 7149 May, [facility] [place] [facility] [address] [facility] [id number] [place] [address]- 1358 May, [facility] [place] [facility] [address] [facility] [id number] [place] [address]- 1966 May, [facility] [place] [facility] [address] [facility] [id number] [place] [address]- 7386 May, [facility] [place] [facility] [address] [facility] [id number] [place] [address]- 1641 Apr, [facility] [place] [facility] [address] [facility] [id number] [place] [address]- 6514 Mar, [facility] [place] [facility] [address] [id number] [place] [address]- 1916 Mar, [facility] [place] [facility] [address] [facility] [id number] [place] [address]- 4662 Mar, [facility] [place] [facility] [address] [facility] [id number] [place] 2075 Mar, [facility] [place] [facility] [address] [id number] [place] 0897 Mar, [facility] [place] [facility] [address] [id number] [place] 7192 Mar, [facility] [place] [facility] [address] [id number] [place] [address]- 4842 Mar, [facility] [place] [facility] [address] [id number] [place] 2006 Mar, [facility] [place] [facility] [address] [id number] [place] [address]- 8601 Mar, [facility] [place] [facility] [address] [id number] [place] [address]- 8568 Feb, [facility] [place] [facility] [address] [id number] [place] [address]- 1316 Feb, [facility] [place] [facility] [address] [id number] [place] [address]- 4635 Feb, [facility] [place] [facility] [address] [id number] [place] [address]- 0352 Feb, [facility] [place] [facility] [address] [id number] [place] [address]- 9396 Feb, [facility] [place] [facility] [address] [id number] [place] [address]- 7777 Feb, [facility] [place] [facility] [address] [id number] [place] [address]- 9187 Feb, [facility] [place] [facility] [address] [id number] [place] [address]- 3569 Feb, [facility] [place] [facility] [address] [id number] [place] [address]- 0865 Jan, [facility] [place] [facility] [address] [id number] [place] [address]- 3081 Jan, [facility] [place] [facility] [address] [id number] [place] [address]- 8745 16 Jan, 2014 [facility] [place] [facility] [address] [id number] [place] [address]- 4441 16 Jan, 2014 [facility] [place] [facility] [address] [id number] [place] [address]- 9023 15 Jan, 2014 [facility] [place] [facility] [address] [id number] [place] [address]- 3639 15 Jan, 2014 [facility] [place] [facility] [address] [id number] [place] [address]- 7508 14 Jan, 2014 [facility] [place] [facility] [address] [id number] [place] [address]- 0657 14 Jan, 2014 [facility] [place] [facility] [address] [id number] [place] [address]- 5169 14 Jan, 2014 [facility] [place] [facility] [address] [id number] [place] [address]- 7217 14 Jan, 2014 [facility] [place] [facility] [address] [id number] [place] [address]- 6163 18 Dec, 2013 [facility] [place] [facility] [address] [id number] [place] [address]- 3784 18 Dec, 2013 [facility] [place] [facility] [address] [id number] [place] [address]- 5419 10 Dec, 2013 [facility] [place] [facility] [address] [id number] [place] [address]- 2521 10 Dec, 2013 [facility] [place] [facility] [address] [id number] [address]- 9665 Nov, [facility] [place] [facility] [address] [id number] [place] [address]- 5156 Nov, [facility] [place] [facility] [address] [id number] [place] [address]- 1448 Nov, [facility] [place] [facility] [address] [id number] [place] [address]- 0480 Nov, [facility] [place] [facility] [address] [id number] [place] [address]- 8294 Nov, [facility] [place] [facility] [address] [id number] [place] [address]- 7668 Oct, [facility] [place] [facility] [address] [id number] [place] 7591 Oct, [facility] [place] [facility] [address] [id number] [place] [address]- 4029 Oct, [facility] [place] [facility] [address] [id number] [place] [address]- 1584 Oct, [facility] [place] [facility] [address] [id number] [place] [address]- 7283 Sep, [facility] [place] [facility] [address] [id number] [place] [address]- 5672 Sep, [facility] [place] [facility] [address] [id number] [place] [address]- 5520 Sep, [facility] [place] [facility] [address] [id number] [place] [address]- 9348 Sep, [facility] [place] [facility] [address] [id number] [place] [address]- 0939 Sep, [facility] [place] [facility] [address] [id number] [place] [address]- 0304 Sep, [facility] [place] [facility] [address] [id number] [place] [address]- 5374 Sep, [facility] [place] [facility] [address] [id number] [place] [address]- 2946 Sep, [facility] [place] [facility] [address] [id number] [place] [address]- 4457 August, [facility] [place] [facility] [address] [id number] [place] [address]- 1153 August, [facility] [place] [facility] [address] [id number] [place] [address]- 9127 August, [facility] [place] [facility] [address] [id number] [place] [address]- 2763 August, [facility] [place] [facility] [address] [id number] [place] [address]- 4958 August, [facility] [place] [facility] [address] [id number] [place] [address]- 9438 August, [facility] [place] [facility] [address] [id number] [place] [address]- 0734 August, [facility] [place] [facility] [address] [id number] [place] [address]- 1914 Jul, [facility] [place] [facility] [address] [id number] [place] [address]- 4959 Jul, [facility] [place] [facility] [address] [id number] [place] [address]- 8985 Jul, [facility] [place] [facility] [address] [id number] [place] [address]- 9245 Jul, [facility] [place] [facility] [address] [id number] [place] [address]- 1989 Jul, [facility] [place] [facility] [address] [id number] [place] [address]- 7446 Jul, [facility] [place] [facility] [address] [id number] [place] [address]- 0919 Jul, [facility] [place] [facility] [address] [id number] [place] [address]- 3543 Jul, [facility] [place] [facility] [address] [id number] [place] [address]- 1669 Jul, [facility] [place] [facility] [address] [id number] [place] [address]- 3586 Jul, [facility] [place] [facility] [address] [id number] [place] [address]- 0290 Jul, [facility] [place] [facility] [address] [id number] [place] [address]- 8087 Jul, [facility] [place] [facility] [address] [id number] [place] [address]- 9085 Jun, [facility] [place] [facility] [address] [id number] [place] 1438 Jun, [facility] [place] [facility] [address] [facility] [id number] [place] [address]- 1903 Jun, [facility] [place] [facility] [address] [id number] [place] [address]- 8380 Jun, [facility] [place] [facility] [address] [id number] [place] [address]- 5257 Jun, [facility] [place] [facility] [address] [id number] [place] [address]- 9844 May, [facility] [place] [facility] [address] [facility] [id number] [place] [address]- 7065 May, [facility] [place] [facility] [address] [facility] [id number] [place] [address]- 0824 May, [facility] [place] [facility] [address] [facility] [id number] [place] [address]- 9860 May, [facility] [place] [facility] [address] [facility] [id number] [place] [address]- 5314 May, [facility] [place] [facility] [address] [facility] [id number] [place] [address]- 4935 May, [facility] [place] [facility] [address] [facility] [id number] [place] [address]- 6086 May, [facility] [place] [facility] [address] [facility] [id number] [place] [address]- 3631 May, [facility] [place] [facility] [address] [facility] [id number] [place] [address]- 7584 Mar, [facility] [place] [facility] [address] [facility] [id number] [place] [address]- 5067 Mar, [facility] [place] [facility] [address] [id number] [place] [address]- 2331 Mar, [facility] [place] [facility] [address] [id number] [place] 3146 Mar, [facility] [place] [facility] [address] [id number] [place] [address]- 3900 Mar, [facility] [place] [facility] [address] [id number] [place] [address]- 1581 Mar, [facility] [place] [facility] [address] [id number] [place] [address]- 4743 Feb, [facility] [place] [facility] [address] [id number] [place] [address]- 2386 Feb, [facility] [place] [facility] [address] [id number] [place] [address]- 6163 Jan, [facility] [place] [facility] [address] [id number], [place] [address]- 9871 Jan, [facility] [place] [facility] [address] [id number] [place] [address]- 8703 Jan, [facility] [place] [facility] [address] [id number], [place] [address]- 7835 Jan, [facility] [place] [facility] [address] [id number], [place] [address]- 6291 Jan, [facility] [place] [facility] [address] [id number], [place] [address]- 4148 Jan, [facility] [place] [facility] [address] [id number], [place] [address]- 5648 Jan, [facility] [place] [facility] [address] [id number] 6884 Jan, [facility] [place] [facility] [address] [id number][place] 1838 08 Jan, 2013 [facility] [place] [facility] [address] [id number], [place] [address]- 4183 Jan, [facility] [address] [id number] [place] [address]- 5138 Dec, [facility] [place] [facility] [address] [id number] [place] [address]- 7517 Nov, [facility] [place] [facility] [address] [id number] [place] [address]- 0469 Nov, [facility] [place] [facility] [address] [id number] [place] [address]- 6508 Nov, [facility] [place] [facility] [address] [id number] [place] [address]- 8603 Oct, [facility] [place] [facility] [address] [id number] [place] [address]- 6030 Oct, [facility] [place] [facility] [address] [id number] [place] [address]- 4783 August, [facility] [place] [facility] [address] [id number] [place] [address]- 9556 Apr, [facility] [place] [facility] [address] [id number] [place] [address]- 6912 Apr, [facility] [place] [facility] [address] [id number] [place] [address]- 8044 Feb, [facility] [place] [facility] [address] [id number] [place] [address]- 5909 Feb, [facility] [place] [facility] [address] [id number] [place] [address]- 6734 Dec, [facility] [place] [facility] [address] [id number] [place] 3315 Dec, [facility] [place] [facility] [address] [id number] [place] 8631 Oct, [facility] [place] [facility] [address] [id number] [place] 4296 Oct, [facility] [place] [facility] [address] [id number] [place] [address]- 6538 Oct, [facility] [address] [facility] [id number] [place] [address] 1966 Jul, IMMUNIZATIONS No Known Immunizations SOCIAL HISTORY Never Assessed REASON FOR VISIT Follow-up PLAN OF CARE Activity Details Follow Up 2 Weeks Reason: Follow-up VITAL SIGNS MEDICATIONS Unknown Medications RESULTS No Results PROCEDURES Procedure Date Ordered Result Body Site [facility] VISIT MENTAL HEALTH ESTAB PT Jan 27, 2018 Psychotherapy, patient &/family, 30 minutes, established patient Jan 27, 2018 INSTRUCTIONS MEDICATIONS ADMINISTERED No Known Medications [...] for psychosis/mental illness , last one in [facility] 4 years ago
--- OUTSIDE RECORDS SUMMARY | 2018-09-02 13:16 | XMS REPORT ---
Author Author UMESH PINEDA [facility] [address] Address [address] [place] [address] Care Team Providers Care Supervisor Travel Trailer Name Role Phone UMESH PINEDA Unavailable PROBLEMS ALLERGIES ENCOUNTERS IMMUNIZATIONS No Known Immunizations SOCIAL HISTORY No smoking Hx information available REASON FOR VISIT PLAN OF CARE VITAL SIGNS MEDICATIONS RESULTS No Results PROCEDURES INSTRUCTIONS MEDICATIONS ADMINISTERED No Known Medications MEDICAL (GENERAL) HISTORY
--- OUTSIDE RECORDS SUMMARY | 2018-09-02 13:17 | XMS REPORT ---
Author Author SOTO Castillo [facility] Address [address] [place] [address] Care Team Providers Care Aviation Electrical Technician Name Role Phone SOTO Castillo Unavailable PROBLEMS ALLERGIES ENCOUNTERS IMMUNIZATIONS No Known Immunizations SOCIAL HISTORY No smoking Hx information available REASON FOR VISIT PLAN OF CARE VITAL SIGNS MEDICATIONS RESULTS No Results PROCEDURES INSTRUCTIONS MEDICATIONS ADMINISTERED No Known Medications MEDICAL (GENERAL) HISTORY
--- OUTSIDE RECORDS SUMMARY | 2018-09-02 13:17 | XMS REPORT ---
Author Author SOTO Castillo [facility] Address [address] [place] [address] Care Team Providers Care Tire Design Engineer Name Role Phone SOTO Castillo Unavailable PROBLEMS ALLERGIES No Information ENCOUNTERS IMMUNIZATIONS No Known Immunizations SOCIAL HISTORY No smoking Hx information available REASON FOR VISIT PLAN OF CARE VITAL SIGNS MEDICATIONS RESULTS No Results PROCEDURES No Known procedures INSTRUCTIONS MEDICATIONS ADMINISTERED No Known Medications MEDICAL (GENERAL) HISTORY
--- OUTSIDE RECORDS SUMMARY | 2018-09-02 13:18 | XMS REPORT ---
Author Author Jonathan SOTO Organization [facility] [place] [facility] Address [address] [place] [address] Care Team Providers Care Comfort Station Supervisor Name Role Phone Jonathan SOTO Unavailable PROBLEMS Type Condition ICD9-CM Code HBL55-EW Code Onset Dates Condition Status SNOMED Code Problem OAB (overactive bladder) N32.81 Active 554613085 Problem Depression with anxiety F41.8 Active 575820373 Problem Other seasonal allergic rhinitis J30.2 Active 093443646 Problem Chronic obstructive pulmonary disease, unspecified COPD type J44.9 Active 04936304 Problem Tobacco abuse Z72.0 Active 227690723 Problem Morbid obesity due to excess calories E66.01 Active 425556932 Problem Dyslipidemia E78.5 Active 297531519 Problem Hypothyroidism (acquired) E03.9 Active 429263473 Problem Essential hypertension I10 Active 93735794 Problem Diabetic polyneuropathy associated with type 2 diabetes mellitus E11.42 Active 219362191 Problem Type 2 diabetes mellitus with diabetic neuropathic arthropathy, 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 Active 440599983 Problem Type 2 diabetes mellitus without complication, without long-term current use of insulin E11.9 Active 427801199 Problem Paranoid schizophrenia F20.0 Active 99922686 Problem Chronic pain syndrome G89.4 Active 484549397 Problem Migraine without aura and without status migrainosus, not intractable G43.009 Active 570996455 Problem Gastroesophageal reflux disease, esophagitis presence not specified K21.9 Active 267046370 Problem Seasonal allergic rhinitis due to pollen J30.1 Active 86678212 Problem COPD exacerbation J44.1 Active 291582841 Problem Seasonal allergic rhinitis due to other allergic trigger J30.89 Active 053413029 Problem Schizoaffective disorder, depressive type F25.1 Active 58545329 Problem History of lupus Z87.39 Active 552577751 Problem Gastroesophageal reflux disease without esophagitis K21.9 Active 610801013 Problem Menopausal syndrome (hot flashes) N95.1 Active 869111739 Problem Other allergic rhinitis J30.89 Active 208275427 Problem Primary insomnia F51.01 Active 8641882 Problem DM neuro manif type II E11.49 Active 29527448 ALLERGIES No Information ENCOUNTERS Encounter Location Date Diagnosis [facility] [place] [facility] [id number] [place] [address] 00479- 4089 Jan, [facility] [place] [facility] [address] 7[address]28- 3700 Jan, [place] [address] 83989- 5252 Jan, Schizoaffective disorder, depressive type F25.1 [place] [address] 00102- 0788 Jan, [place] [id number] [place] [address] 37369- 0986 Jan, Chronic obstructive pulmonary disease, unspecified COPD type J44.9 ; BMI 45.0-49.9, adult Z68.42 ; Type 2 diabetes mellitus without complication, without long-term current use of insulin E11.9 ; Hypothyroidism ( acquired) E03.9 ; Encounter for immunization Z23 ; Gastroesophageal reflux disease without esophagitis K21.9 ; Primary insomnia F51.01 and Acute nasopharyngitis [address] [place] [id number] [place] [address] 88619- 3077 Dec, [place] [id number] [place] [address] 32197- 9130 Dec, Schizoaffective disorder, depressive type F25.1 and BMI 45.0 -49.9, adult Z68.42 [facility] [place] [facility] [id number] [place] [address] 97260- 5305 Dec, [place] [id number] [place] [address] 28542- 1738 Dec, [facility] [place] [facility] [address] 34996- 3369 18 Dec, 2017 Acute non-recurrent frontal sinusitis J01.10 [facility] [place] [facility] [id number] [place] [address] 90848- 3954 18 Dec, 2017 Acute non-recurrent frontal sinusitis J01.10 ; Weakness of left leg R29.898 ; At high risk for falls Z91.81 and BMI 45.0-49.9, adult Z68.42 [facility] [place] [facility] [id number] [place] [address] 26081- 9341 Dec, [facility] [place] [facility] [id number] [place] [address] 65326- 6041 Dec, [facility] [place] [facility] [id number] [place] [address] 27196- 3324 Dec, Schizoaffective disorder, depressive type F25.1 [facility] [id number] [place] [address] 04977 -9715 Dec, Acute nasopharyngitis J00 [facility] [facility] [id number] [place] [address] 06967- 0033 Dec, Schizoaffective disorder, depressive type F25.1 [facility] [place] [facility] [id number] [place] [address] 45035- 2836 Dec, [facility] [place] [facility] [id number] [place] [address] 13093- 2371 Nov, Schizoaffective disorder, depressive type F25.1 and BMI 45.0 -49.9, adult Z68.42 [facility] [facility] [id number] [place] [address] 36345- 2258 Nov, [facility] [place] [facility] [id number] [place] [address] 37465- 0775 Nov, [facility] [facility] [id number] [place] [address] 16748- 9067 Nov, Schizoaffective disorder, depressive type F25.1 [facility] [place] [facility] [address] [place] [address]- 4115 16 Nov, 2017 Well woman exam Z01.419 ; BMI 45.0-49.9, adult Z68.42 ; Screening breast examination Z12.31 and Dietary counseling and surveillance Z71.3 [place] [address] [place] [address] 82144- 8725 10 Nov, 2017 Paranoid schizophrenia F20.0 [place] [id number] [place] [address] 98999- 6749 Nov, Gastroesophageal reflux disease, esophagitis presence not specified K21.9 [place] [address] [place] [address] 59972- 7072 Oct, Paranoid schizophrenia F20.0 [place] [address] [address] [id number] [address] Oct Chronic pain syndrome G89.4 and Schizoaffective disorder, depressive type F25.1 [place] [address] [place] [address] 39748- 4703 Oct, Chronic pain syndrome G89.4 and Schizoaffective disorder, depressive type F25.1 [place] [address] [place] [address] 24279- 9364 Oct, Type 2 diabetes mellitus without complication, without long- term current use of insulin E11.9 [place] [address] [place] [address] 41876- 9935 12 Oct, 2017 Essential hypertension I10 and DM neuro manif type II E11.49 [place] [address] [place] [address] 28853- 7392 Oct, [place] [id number] [place] [address] 99130- 9401 Oct, Schizoaffective disorder, depressive type F25.1 and BMI 45.0 -49.9, adult Z68.42 [place] [id number] [place] [address] 79097- 3361 Oct, [facility] [place] [facility] [id number] [place] [address] 67433- 0157 Oct, Paranoid schizophrenia F20.0 [facility] [place] [facility] [id number] [place] [address] 07435- 6138 Oct, Type 2 diabetes mellitus with diabetic neuropathic arthropathy, 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 ; Essential hypertension I10 ; Hypothyroidism (acquired) E03.9 ; Chronic obstructive pulmonary disease, unspecified COPD type J44.9 and Diabetic polyneuropathy associated with type 2 diabetes mellitus E11.42 [facility] [place] [facility] [id number] [place] [address] 72883- 0614 Sep, Paranoid schizophrenia F20.0 [place] [id number] [place] [address] 21058- 7018 Sep, Paranoid schizophrenia F20.0 and BMI 45.0-49.9, adult Z68.42 [place] [id number] [place] [address] 33602- 9242 Sep, Schizoaffective disorder, depressive type F25.1 [facility] [id number] [place] [address] 41243- 3246 Sep, [facility] [facility] [id number] [place] [address] 23746- 4399 Sep, Paranoid schizophrenia F20.0 [facility] [id number] [place] [address] 47118- 1878 Sep, [facility] [id number] [place] [address] 63760- 9344 Sep, Hypothyroidism (acquired) E03.9 [facility] [id number] [place] [address] 96773- 3225 Sep, [facility] [place] [facility] [id number] [place] [address] 85031- 8238 August, Schizoaffective disorder, depressive type F25.1 [facility] [id number] [place] [address] 95685- 0882 August, [facility] [id number] [place] [address] 65436- 5024 August, [facility] [id number] [place] [address] 65313- 1418 August, [place] [address] 04064- 3831 August, Paranoid schizophrenia F20.0 [place] [address] 07160- 0428 August, History of lupus Z87.39 and Chronic pain syndrome G89.4 [place] [address] 93474- 6408 August, [facility] [address] 85451 -9838 August, Seasonal allergic rhinitis, unspecified trigger J30.2 and BMI 45.0-49.9, adult Z68.42 [place] [id number] [place] [address] 61262- 6770 Jul, Schizoaffective disorder, depressive type F25.1 [place] [id number] [place] [address] 90565- 7958 Jul, [place] [id number] [place] [address] 58827- 9774 Jul, Hypothyroidism (acquired) E03.9 [place] [id number] [place] [address] 92296- 1857 11 Jul, 2017 Chronic obstructive pulmonary disease, unspecified COPD type J44.9 and Type 2 diabetes mellitus without complication, without long-term current use of insulin E11.9 [place] [id number] [place] [address] 07688- 3377 Jul, Paranoid schizophrenia F20.0 [place] [address] 55652- 4553 Jun, Hypothyroidism (acquired) E03.9 and Seasonal allergic rhinitis due to pollen J30.1 [facility] [address] 86050 -4035 Jun, Shortness of breath at rest R06.02 ; COPD exacerbation J44.1 and BMI 45.0-49.9, adult Z68.42 [facility] [address] 66837- 1494 Jun, [facility] [address] 34975- 9255 Jun, Paranoid schizophrenia F20.0 ; Depression with anxiety F41.8 and BMI 45.0-49.9, adult Z68.42 [facility] [address] 07619- 0283 Jun, Schizoaffective disorder, depressive type F25.1 [facility] [address] [id number] Jun, Dental caries K02.9 [facility] [address] 54061- 3623 Jun, Paranoid schizophrenia F20.0 [facility] [address] 65571- 1092 May, Migraine without aura and without status migrainosus, not intractable G43.009 ; DM neuro manif type II E11.49 and Type 2 diabetes mellitus without complication, without long-term current use of insulin E11.9 [facility] [id number] [place] [address] 04112- 1597 May, Migraine without aura and without status migrainosus, not intractable G43.009 [facility] [address] 27440- 7324 May, Depression with anxiety F41.8 [facility] [address] [id number] May, [facility] [address] [address]- 0618 May, [place] [id number] [place] [address] 713393- 1923 May, [facility] [facility] [id number] [place] [address] 98608- 8663 May, Hypothyroidism (acquired) E03.9 [place] [id number] [place] [address] 86036- 0172 May, Paranoid schizophrenia F20.0 [place] [id number] [place] [address] 75151- 5054 May, Type 2 diabetes mellitus without complication, [...] N32.81 and Controlled substance agreement signed Z79.899 [place] [id number] [place] [address] 23688- 2487 May, Controlled substance agreement signed Z79.899 [place] [address] [place] [address] 41136- 0851 Apr, [facility] [id number] [place] [address] [id number] Apr, Dental examination Z01.20 [place] [id number] [place] [address] 98062- 4158 Apr, Paranoid schizophrenia F20.0 [place] [id number] [place] [address] 23696- 9338 Apr, Hypertension, unspecified type I10 [facility] [facility] [id number] [place] [address] 67350- 7770 Apr, Paranoid schizophrenia F20.0 [facility] [facility] [id number] [place] [address] 30228- 5549 Apr, [facility] [place] [facility] [address] 93582- 5256 Apr, Tobacco abuse Z72.0 [facility] [place] [facility] [id number] [place] [address] 10085- 4396 Apr, [place] [id number] [place] [address] 15662- 8449 Mar, [place] [id number] [place] [address] 82318- 7046 Mar, Paranoid schizophrenia F20.0 and BMI 45.0-49.9, adult Z68.42 [place] [id number] [place] [address] 24114- 4300 Mar, Schizoaffective disorder, depressive type F25.1 [place] [id number] [place] [address] 96530- 7396 Mar, [place] [id number] [place] [address] 28659- 9634 Mar, Hypothyroidism, unspecified type E03.9 [facility] [facility] [id number] [place] [address] 78814- 0743 Mar, Schizoaffective disorder, depressive type F25.1 [facility] [id number] [place] [address] 27287 -7109 Feb, Gastroenteritis K52.9 and BMI 45.0-49.9, adult Z68.42 [place] [id number] [place] [address] 90244- 0234 Feb, [place] [id number] [place] [address] 35799- 7597 Feb, [facility] [facility] [address] 75422- 9717 Feb, [place] [address] 81282- 0733 Feb, [place] [address] 63086- 0639 Feb, Paranoid schizophrenia F20.0 [place] [address] 69845- 6360 Feb, Gastroesophageal reflux disease without esophagitis K21.9 ; Other seasonal allergic rhinitis J30.2 ; Other allergic rhinitis J30.89 ; Tobacco abuse Z72.0 and BMI 40.0-44.9, adult Z68.41 [place] [address] 38889- 0535 Feb, Onychomycosis B35.1 ; Callus of foot L84 and DM neuro manif type II E11.49 [place] [address] 28435- 9271 Jan, Chronic allergic rhinitis J30.9 [place] [address] 68224- 4298 Jan, [place] [address] 16989- 7516 Jan, Schizoaffective disorder, depressive type F25.1 [place] [id number] [place] [address] 02513- 9264 Jan, [facility] [address] 01537 -6662 07 Jan, 2017 Sore throat J02.9 and Seasonal allergic rhinitis due to other allergic trigger J30.89 [place] [address] 33492- 4177 Jan, [facility] [facility] [id number] [place] [address] 37335- 3247 Jan, [facility] [id number] [place] [address] 30150 -7496 Jan, Chronic allergic rhinitis J30.9 [facility] [place] [facility] [id number] [place] [address] 27944- 8787 Dec, Paranoid schizophrenia F20.0 ; Primary insomnia F51.01 and Schizoaffective disorder, depressive type F25.1 [facility] [facility] [id number] [place] [address] 38286- 0234 Dec, Chronic pain syndrome G89.4 ; Cervicalgia of occipito- atlanto-axial region M54.2 ; Menopausal syndrome (hot flashes) N95.1 and Encounter for immunization Z23 [facility] [facility] [address] 31703- 2886 14 Dec, 2016 [facility] [place] [facility] [id number] [place] [address] 02088- 9019 Dec, [facility] [facility] [address] 20399- 9918 08 Dec, 2016 Paranoid schizophrenia F20.0 [facility] [place] [facility] [id number] [place] [address] 10425- 7266 Dec, Schizoaffective disorder, depressive type F25.1 [facility] [place] [facility] [id number] [place] [address] 51568- 3247 Nov, Hypothyroidism, unspecified type E03.9 [facility] [id number] [place] [address] 53220 -4724 Nov, Acute seasonal allergic rhinitis due to other allergen J30.89 [facility] [place] [facility] [id number] [place] [address] 18375- 0215 Nov, [facility] [place] [facility] [address] 12005- 9825 Nov, Hypothyroidism, unspecified type E03.9 and Other elevated white blood cell (WBC) count D72.828 [place] [id number] [place] [address] 94192- 5495 Nov, Schizoaffective disorder, depressive type F25.1 [place] [id number] [place] [address] 60772- 3231 Nov, Paranoid schizophrenia F20.0 [place] [id number] [place] [address] 72283- 7368 Nov, Type 2 diabetes mellitus without complication, without long- term current use of insulin E11.9 ; Morbid obesity due to excess calories E66.01 and Chronic pain syndrome G89.4 [place] [id number] [place] [address] 94129- 6699 Oct, Paranoid schizophrenia F20.0 [place] [id number] [place] [address] 88336- 0998 Oct, [place] [id number] [place] [address] 83743- 4005 Oct, Schizoaffective disorder, depressive type F25.1 [place] [id number] [place] [address] 75588- 6447 Oct, Hypothyroidism, unspecified type E03.9 and Other elevated white blood cell (WBC) count D72.828 [place] [id number] [place] [address] 39482- 2992 Oct, Morbid obesity due to excess calories E66.01 ; Chronic obstructive pulmonary disease, unspecified COPD type J44.9 ; History of lupus Z87.39 ; Hypothyroidism, unspecified type E03.9 ; Gastroesophageal reflux disease without esophagitis K21.9 ; Primary insomnia F51.01 and Chronic pain syndrome G89.4 [place] [address] [place] [address] 27040- 0443 Sep, [place] [id number] [address]- 0155 Sep, [facility] [place] [facility] [address] [address]- 5699 Sep, [facility] [place] [facility] [address] [address]- 2355 Sep, Paranoid schizophrenia F20.0 [facility] [place] [facility] [id number] [place] [address] 96326- 0455 Sep, [facility] [place] [facility] [address] [place] [address] 98992- 8817 Sep, Paranoid schizophrenia F20.0 [facility] [place] [facility] [id number] [place] [address] 43742- 2864 Sep, [facility] [place] [facility] [id number] [place] [address] 40876- 0740 August, Paranoid schizophrenia F20.0 [facility] [place] [facility] [address] [address]- 6010 Jul, [facility] [place] [facility] [address] [place] [address] 97317- 5919 Jul, Type 2 diabetes mellitus without complication, without long- term current use of insulin E11.9 ; Morbid obesity due to excess calories E66.01 ; Depression with anxiety F41.8 ; Hypothyroidism, unspecified type E03.9 ; Seasonal allergic rhinitis due to other allergic trigger J30.89 ; Pain, dental K08.89 and Gastroesophageal reflux disease without esophagitis K21.9 [facility] [id number] [address] Jul, Dental examination Z01.20 [facility] [place] [facility] [address] [place] [address] 33539- 3125 07 Jul, 2016 Paranoid schizophrenia F20.0 [facility] [place] [facility] [address] [address]- 1934 Jun, Paranoid schizophrenia F20.0 and Depression with anxiety F41.8 [place] [id number] [place] [address] 30067- 7142 10 Jun, 2016 Paranoid schizophrenia F20.0 and Depression with anxiety F41.8 [place] [id number] [place] [address] 86022- 5318 09 Jun, 2016 [place] [id number] [place] [address] 27885- 3047 Jun, [facility] [place] [address] 00247 -4339 Jun, Seasonal allergic rhinitis due to other allergic trigger J30.89 [facility] [address] 29748 -0610 May, Sore throat J02.9 ; Other viral agents as the cause of diseases classified elsewhere B97.89 and Acute upper respiratory infection, unspecified J06.9 [place] [id number] [place] [address] 66093- 8425 08 May, 2016 Paranoid schizophrenia F20.0 and Depression with anxiety F41.8 [place] [id number] [place] [address] 52425- 4200 Apr, Other seasonal allergic rhinitis J30.2 [place] [id number] [place] [address] 97725- 4178 Apr, Paranoid schizophrenia F20.0 and Depression with anxiety F41.8 [facility] [place] [id number] [place] [address] 97473 -4008 Apr, Bronchitis J40 and Sore throat J02.9 [place] [id number] [place] [address] 59209- 0162 Apr, Type 2 diabetes mellitus without complication, without long- term current use of insulin E11.9 [facility] [place] [id number] [place] [address] 86099 -3993 Apr, Bronchitis J40 [place] [address] [address]- 0583 Apr, [facility] [place] [facility] [id number] [place] [address] 84478- 2214 Apr, [facility] [place] [facility] [id number] [place] [address] 17035- 4641 Mar, Type 2 diabetes mellitus without complication, [...] R60.9 and Other seasonal allergic rhinitis J30.2 [place] [id number] [place] [address] 73284- 7072 Mar, Paranoid schizophrenia F20.0 and Depression with anxiety F41.8 [place] [id number] [place] [address] 61103- 5585 Feb, [place] [id number] [place] [address] 90856- 4608 Feb, [place] [id number] [place] [address] 16896- 3207 Feb, [place] [id number] [place] [address] 51966- 8581 Feb, [place] [id number] [place] [address] 13360- 6044 Feb, Type 2 diabetes mellitus without complication, without long- term current use of insulin E11.9 ; ARIAS on CPAP G47.33 and Preoperative evaluation to rule out surgical contraindication Z01.818 [place] [id number] [place] [address] 21239- 1771 Feb, Paranoid schizophrenia F20.0 and Depression with anxiety F41.8 [place] [address] [id number] [address] Jan, [facility] [place] [facility] [address] [facility] [id number], [place] [address] 18 Jan, 2016 Paranoid schizophrenia F20.0 and Depression with anxiety F41.8 [facility] [place] [facility] [address] [facility] [id number] [place] [address] 9049 17 Jan, 2016 [facility] [place] [facility] [address] [facility] [id number] [place] [address] 12432- 9797 14 Jan, 2016 Muscle strain T14.8 [facility] [place] [facility] [address] [facility] [id number], [place] [address] 7[address] 10 Jan, 2016 Paranoid schizophrenia F20.0 [facility] [place] [facility] [address] [id number] [address] Jan, [facility] [place] [facility] [id number] [place] [address] 33039- 3553 Jan, Paranoid schizophrenia F20.0 and Depression with anxiety F41.8 [facility] [place] [facility] [address] [facility] [id number], [place] [address] 8[address] Jan, [facility] [place] [facility] [address] [id number] [address] 8[address] Jan, [facility] [place] [facility] [address] [id number], [place] [address] 5929 28 Dec, 2015 [facility] [place] [facility] [address] [facility] [id number], [place] [address] 8220 23 Dec, 2015 Paranoid schizophrenia F20.0 [facility] [place] [facility] [address] [facility] [id number], [place] [address] 1485 16 Dec, 2015 Paranoid schizophrenia F20.0 and Depression with anxiety F41.8 [facility] [place] [facility] [address] [facility] [id number], [place] [address] 8413 31 Nov, 2015 [facility] [place] [facility] [address] [facility] [id number], [place] [address] 9399 Nov, Paranoid schizophrenia F20.0 [id number] [place] [address] 60266- 5400 Nov, Paranoid schizophrenia F20.0 and Depression with anxiety F41.8 [address] [place] [id number] [place] [address] 67026- 8024 Nov, Type 2 diabetes mellitus without complication, without long- term current use of insulin E11.9 ; Paranoid schizophrenia F20.0 ; Chronic obstructive pulmonary disease, unspecified COPD type J44.9 ; Morbid obesity due to excess calories E66.01 and Parkinsonian tremor G20 [id number] [place] [address] 16989- 1456 Nov, [address] [place] [id number] [place] [address] 38944- 0753 Oct, Paranoid schizophrenia F20.0 [place] [id number] [place] [address] 35297- 3904 Oct, Paranoid schizophrenia F20.0 [address] [id number] [place] [address] 56065- 2870 Oct, Paranoid schizophrenia F20.0 and Depression with anxiety F41.8 [address] [id number] [place] [address] 68502- 9901 Oct, [address] [id number] [place] [address] 09272- 7616 Oct, Paranoid schizophrenia F20.0 and Depression with anxiety F41.8 [address] [id number] [place] [address] 34440- 3765 Oct, Nasal sore J34.89 [place] [id number] [place] [address] 10651- 9752 Oct, Type 2 diabetes mellitus without complication, without long- term current use of insulin E11.9 ; Depression with anxiety F41.8 ; Hypothyroidism, unspecified type E03.9 and History of lupus Z87.39 [address] [id number] [place] [address] 83114- 8806 Oct, [facility] [place] [facility] [id number] [place] [address] 22008- 3267 Oct, Type 2 diabetes mellitus without complication, [...] edema R60.9 and History of lupus Z87.39 [facility] [place] [facility] [id number] [place] [address] 73701- 3541 Feb, [facility] [place] [facility] [id number] [place] [address] 43410- 3551 Jan, [facility] [place] [facility] [id number] [place] [address] 59412- 0465 Jan, [facility] [place] [facility] [id number] [place] [address] 72696- 3216 Jan, [facility] [place] [facility] [id number] [place] [address] 83281- 5556 Dec, [facility] [place] [facility] [id number] [place] [address] 07265- 6916 Nov, [facility] [place] [facility] [id number] [place] [address] 85516- 1276 Nov, [facility] [place] [facility] [address] 23849- 3576 Oct, [facility] [place] [facility] [id number] [place] [address] 76545- 2546 Oct, [facility] [place] [facility] [address] 95580- 6968 Oct, [facility] [address] [id number], [place] [address] 9333 Sep, Allergic rhinitis 477.9 [facility] [address] [id number], [place] [address] Sep, Rhinitis, allergic 477.9 [facility] [address] [id number], [place] [address]- 1607 Sep, Rhinitis, allergic 477.9 [facility] [address] [facility] [id number], [place] [address]- 2188 Sep, [facility] [id number], [place] [address]- 9819 August, [facility] [id number], [place] [address]- 4320 August, [facility] [id number], [place] [address]- 3559 August, [facility] [id number], [place] [address]- 0496 Jul, [facility] [id number], [place] [address]- 5575 Jul, [facility] [id number], [place] [address]- 8567 Jul, [facility] [address] [id number], [place] [address]- 6420 16 Jun, 2014 [facility] [address] [id number], [place] [address]- 4982 Jun, [facility] [address] [id number], [place] [address]- 0525 Jun, [facility] [address] [id number] 0370 Jun, [facility] [address], [place] [address]- 8539 Jun, [facility] [place] [facility] [address] [id number] [place] [address]- 0852 Jun, [facility] [place] [facility] [address] [id number] [place] [address]- 4234 Jun, 2014 [facility] [place] [facility] [address] [id number] [place] [address]- 1744 Jun, 2014 [facility] [place] [facility] [address] [id number] [place] [address]- 1560 May, 2014 [facility] [place] [facility] [address] [id number] [place] [address]- 8812 May, 2014 [facility] [place] [facility] [address] [facility] [id number] [place] [address]- 3539 May, 2014 [facility] [place] [facility] [address] [facility] [id number] [place] [address]- 6688 May, 2014 [facility] [place] [facility] [address] [id number] [place] [address]- 9769 Apr, [facility] [place] [facility] [address] [id number] [place] [address]- 7083 Mar, [facility] [place] [facility] [address] [facility] [id number] [place] [address]- 8186 Mar, [facility] [place] [facility] [address] [facility] [id number] [place] [address]- 3335 Mar, [facility] [place] [facility] [address] [id number] [place] [address]- 4980 Mar, [facility] [place] [facility] [address] [id number] [place] [address]- 5790 Mar, [facility] [place] [facility] [address] [id number] [place] 1997 Mar, [facility] [place] [facility] [address] [facility] [id number] [place] [address]- 0107 Mar, [facility] [place] [facility] [address] [id number] [place] 4602 Mar, [facility] [place] [facility] [address] [id number] [place] 0963 Mar, [facility] [place] [facility] [address] [id number] [place] [address]- 0308 Feb, [facility] [place] [facility] [address] [id number] [place] [address]- 3090 Feb, [facility] [place] [facility] [address] [id number] [place] [address]- 9784 Feb, [facility] [place] [facility] [address] [id number] [place] [address]- 0721 Feb, [facility] [place] [facility] [address] [id number] [place] [address]- 6230 Feb, [facility] [place] [facility] [address] [id number] [place] [address]- 1495 Feb, [facility] [place] [facility] [address] [id number] [place] [address]- 0031 Feb, [facility] [place] [facility] [address] [id number] [place] [address]- 9783 Feb, [facility] [place] [facility] [address] [id number] [place] [address]- 6014 Jan, [facility] [place] [facility] [address] [id number] [place] [address]- 5137 23 Jan, 2014 [facility] [place] [facility] [address] [id number] [place] [address]- 2431 16 Jan, 2014 [facility] [place] [facility] [address] [id number] [place] [address]- 3585 16 Jan, 2014 [facility] [place] [facility] [address] [id number] [place] [address]- 7469 15 Jan, 2014 [facility] [place] [facility] [address] [id number] [place] [address]- 8775 15 Jan, 2014 [facility] [place] [facility] [address] [id number] [place] [address]- 7086 14 Jan, 2014 [facility] [place] [facility] [address] [id number] [place] [address]- 2893 14 Jan, 2014 [facility] [place] [facility] [address] [id number] [place] [address]- 7439 14 Jan, 2014 [facility] [place] [facility] [address] [id number] [place] [address]- 4769 14 Jan, 2014 [facility] [place] [facility] [address] [id number] [place] [address]- 9002 18 Dec, 2013 [facility] [place] [facility] [address] [id number] [place] [address]- 2405 18 Dec, 2013 [facility] [place] [facility] [address] [id number] [place] [address]- 8004 10 Dec, 2013 [facility] [place] [facility] [address] [id number] [place] [address]- 0562 10 Dec, 2013 [facility] [place] [facility] [address] [id number] [place] [address]- 8488 Nov, [facility] [place] [facility] [address] [id number] [place] [address]- 8739 Nov, [facility] [place] [facility] [address] [id number] [place] [address]- 8599 Nov, [facility] [place] [facility] [address] [id number], [place] [address]- 7904 Nov, [facility] [place] [facility] [address] [id number] [place] [address]- 2918 Nov, [facility] [place] [facility] [address] [id number] [place] [address]- 5264 Oct, [facility] [place] [facility] [address] [id number] [place] [address]- 0367 Oct, [facility] [place] [facility] [address] [id number] [place] [address]- 1207 Oct, [facility] [place] [facility] [address] [id number] [place] [address]- 6283 Oct, [facility] [place] [facility] [address] [id number] [place] [address]- 9139 Sep, [facility] [place] [facility] [address] [id number] [place] [address]- 2169 Sep, [facility] [place] [facility] [address] [id number] [place] [address]- 4829 Sep, [facility] [place] [facility] [address] [id number] [place] [address]- 6396 Sep, [facility] [place] [facility] [address] [id number] [place] [address]- 5057 Sep, [facility] [place] [facility] [address] [id number] [place] [address]- 4882 Sep, [facility] [place] [facility] [address] [id number] [place] [address]- 8491 Sep, [facility] [place] [facility] [address] [id number] [place] [address]- 8438 Sep, [facility] [place] [facility] [address] [id number] [place] [address]- 1779 August, [facility] [place] [facility] [address] [id number] [place] [address]- 7521 August, [facility] [place] [facility] [address] [id number] [place] [address]- 3168 August, [facility] [place] [facility] [address] [id number] [place] [address]- 3518 August, [facility] [place] [facility] [address] [id number] [place] [address]- 5865 August, [facility] [place] [facility] [address] [id number] [place] [address]- 3850 August, [facility] [place] [facility] [address] [id number] [place] [address]- 9001 August, [facility] [place] [facility] [address] [id number] [place] [address]- 3956 Jul, [facility] [place] [facility] [address] [id number] [place] [address]- 8932 Jul, [facility] [place] [facility] [address] [id number] [place] [address]- 0301 Jul, [facility] [place] [facility] [address] [id number] [place] [address]- 6346 Jul, [facility] [place] [facility] [address] [id number] [place] [address]- 7476 Jul, [facility] [place] [facility] [address] [id number] [place] [address]- 0772 Jul, [facility] [place] [facility] [address] [id number] [place] [address]- 6675 Jul, [facility] [place] [facility] [address] [id number] [place] [address]- 6446 Jul, [facility] [place] [facility] [address] [id number] [place] [address]- 5490 Jul, [facility] [place] [facility] [address] [id number] [place] [address]- 7408 Jul, [facility] [place] [facility] [address] [id number] [place] [address]- 7501 Jul, [facility] [place] [facility] [address] [id number] [place] [address]- 0470 Jul, [facility] [place] [facility] [address] [id number] [place] 4894 Jun, [facility] [place] [facility] [address] [id number] [place] [address]- 8109 Jun, [facility] [place] [facility] [address] [id number] [place] [address]- 1977 Jun, [facility] [place] [facility] [address] [id number] [place] [address]- 6040 Jun, [facility] [place] [facility] [address] [id number] [place] [address]- 1733 Jun, [facility] [place] [facility] [address] [id number] [place] [address]- 5549 May, [facility] [place] [facility] [address] [id number] [place] [address]- 5857 May, [facility] [place] [facility] [address] [id number] [place] [address]- 4278 May, [facility] [place] [facility] [address] [id number] [place] [address]- 6290 May, [facility] [place] [facility] [address] [facility] [id number] [place] [address]- 5564 May, [facility] [place] [facility] [address] [id number] [place] [address]- 7739 May, [facility] [place] [facility] [address] [id number] [place] [address]- 3695 May, [facility] [place] [facility] [address] [facility] [id number] [place] [address]- 3975 May, [facility] [place] [facility] [address] [id number] [place] [address]- 1287 Mar, [facility] [place] [facility] [address] [id number] [place] [address]- 7779 Mar, [facility] [place] [facility] [address] [id number] [place] [address]- 3383 Mar, [facility] [place] [facility] [address] [facility] [id number] [place] [address]- 0567 Mar, [facility] [place] [facility] [address] [facility] [id number] [place] [address]- 8883 Mar, [facility] [place] [facility] [address] [id number] [place] [address]- 1069 Mar, [facility] [place] [facility] [address] [id number] [place] [address]- 9232 Feb, [facility] [place] [facility] [address] [id number] [place] [address]- 7116 Feb, [facility] [place] [facility] [address] [id number] [place] [address]- 6524 Jan, [facility] [place] [facility] [address] [id number] [place] [address]- 6477 Jan, [facility] [place] [facility] [address] [id number] [place] [address]- 2437 Jan, [facility] [place] [facility] [address] [id number] [place] [address]- 2659 Jan, [facility] [place] [facility] [address] [id number] [place] [address]- 6147 Jan, [facility] [place] [facility] [address] [id number] [place] [address]- 0083 Jan, [facility] [place] [facility] [address] [id number] [place] [address]- 6551 Jan, [facility] [place] [facility] [address] [id number] [place] [address]- 8736 Jan, [facility] [place] [facility] [address] [id number], [place] [address]- 2818 Jan, [facility] [place] [facility] [address] [id number] [place] [address]- 5805 Jan, [facility] [place] [facility] [address] [id number] [place] [address]- 5839 Dec, [facility] [place] [facility] [address] [id number], [place] [address]- 4676 Nov, [facility] [place] [facility] [address] [id number], [place] [address]- 5896 Nov, [facility] [place] [facility] [id number], [place] [address]- 2064 Nov, [facility] [place] [facility] [address] [facility] [id number], [place] [address]- 3076 Oct, [facility] [place] [facility] [address], [place] [address]- 6612 Oct, [facility] [place] [facility] [address] [facility] [id number], [place] [address]- 7465 August, [facility] [place] [facility] [address] [facility] [id number], [place] [address]- 6276 Apr, [facility] [place] [facility] [id number], [place] [address]- 3821 Apr, [facility] [place] [facility] [address] 0898 Feb, [facility] [place] [facility] [address], [place] [address]- 8813 Feb, [facility] [place] [facility] [address], [place] [address]- 0588 Dec, [facility] [place] [facility] [address], [place] [address]- 1559 Dec, [facility] [place] [facility] [id number], [place] [address]- 4973 Oct, [facility] [place] [facility] [id number], [place] [address]- 2528 Oct, [facility] [place] [facility] [id number], [place] [address]- 4836 Oct, [facility] [place] [facility] [id number] 1698 Jul, IMMUNIZATIONS No Known Immunizations SOCIAL HISTORY Never Assessed REASON FOR VISIT Requests return call/Medication Question PLAN OF CARE VITAL SIGNS MEDICATIONS Unknown [...] psychosis/mental illness , last one in [facility] 4 years ago
--- OUTSIDE RECORDS SUMMARY | 2018-09-02 13:19 | XMS REPORT ---
Author Author Jonathan SOTO Organization [facility] Address [address] [place] [address] Care Team Providers Care Carton Counter Feeder Name Role Phone Jonathan SOTO Unavailable PROBLEMS Type Condition ICD9-CM Code [id number] Code Onset Dates Condition Status SNOMED Code Problem OAB (overactive bladder) N32.81 Active 692925419 Problem Depression with anxiety F41.8 Active 471163728 Problem Other seasonal allergic rhinitis J30.2 Active 942236052 Problem Chronic obstructive pulmonary disease, unspecified COPD type J44.9 Active 03220872 Problem Tobacco abuse Z72.0 Active 745585519 Problem Morbid obesity due to excess calories E66.01 Active 380401071 Problem Dyslipidemia E78.5 Active 060773005 Problem Hypothyroidism (acquired) E03.9 Active 464734095 Problem Essential hypertension I10 Active 92041918 Problem Diabetic polyneuropathy associated with type 2 diabetes mellitus E11.42 Active 610925657 Problem Type 2 diabetes mellitus with diabetic neuropathic arthropathy, 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 Active 624690748 Problem Type 2 diabetes mellitus without complication, without long-term current use of insulin E11.9 Active 245896979 Problem Paranoid schizophrenia F20.0 Active 25347626 Problem Chronic pain syndrome G89.4 Active 149196525 Problem Migraine without aura and without status migrainosus, not intractable G43.009 Active 231837820 Problem Gastroesophageal reflux disease, esophagitis presence not specified K21.9 Active 401342673 Problem Seasonal allergic rhinitis due to pollen J30.1 Active 71575964 Problem COPD exacerbation J44.1 Active 898494949 Problem Seasonal allergic rhinitis due to other allergic trigger J30.89 Active 228393725 Problem Schizoaffective disorder, depressive type F25.1 Active 33019978 Problem History of lupus Z87.39 Active 318833435 Problem Gastroesophageal reflux disease without esophagitis K21.9 Active 478571226 Problem Menopausal syndrome (hot flashes) N95.1 Active 568425480 Problem Other allergic rhinitis J30.89 Active 137059084 Problem Primary insomnia F51.01 Active 8462187 Problem DM neuro manif type II E11.49 Active 64714060 ALLERGIES No Information ENCOUNTERS Encounter Location Date Diagnosis [facility] [id number] [place] [address] 28298- 0079 Jan, [place] [address] 55564- 6497 Jan, [place] [address] 49848- 6007 Jan, [place] [address] 56826- 2836 02 Jan, 2018 Chronic obstructive pulmonary disease, unspecified COPD type J44.9 ; BMI 45.0-49.9, adult Z68.42 ; Type 2 diabetes mellitus without complication, without long-term current use of insulin E11.9 ; Hypothyroidism ( acquired) E03.9 ; Encounter for immunization Z23 ; Gastroesophageal reflux disease without esophagitis K21.9 ; Primary insomnia F51.01 and Acute nasopharyngitis J00 [place] [address] 37816- 4466 27 Dec, 2017 [place] [id number] [place] [address] 53151- 5541 Dec, Schizoaffective disorder, depressive type F25.1 and BMI 45.0 -49.9, adult Z68.42 [facility] [id number] [place] [address] 68083- 7168 Dec, [place] [address] 73729- 3821 Dec, [place] [address] 94557- 0037 Dec, Acute non-recurrent frontal sinusitis J01.10 [place] [address] 81692- 4662 18 Dec, 2017 Acute non-recurrent frontal sinusitis J01.10 ; Weakness of left leg R29.898 ; At high risk for falls Z91.81 and BMI 45.0-49.9, adult Z68.42 [facility] [id number] [place] [address] 69806- 5330 17 Dec, 2017 [facility] [id number] [place] [address] 11957- 8011 Dec, [facility] [id number] [place] [address] 23788- 0297 Dec, Schizoaffective disorder, depressive type F25.1 [facility] [id number] [place] [address] 41146 -8722 Dec, Acute nasopharyngitis J00 [facility] [id number] [place] [address] 33634- 2855 Dec, Schizoaffective disorder, depressive type F25.1 [facility] [id number] [place] [address] 65344- 5556 Dec, [facility] [id number] [place] [address] 06372- 6204 Nov, Schizoaffective disorder, depressive type F25.1 and BMI 45.0 -49.9, adult Z68.42 [facility] [id number] [place] [address] 51772- 0055 Nov, [facility] [id number] [place] [address] 85128- 1530 Nov, [facility] [id number] [place] [address] 98685- 4135 Nov, Schizoaffective disorder, depressive type F25.1 [facility] [id number] [place] [address] 52921- 8795 Nov, Well woman exam Z01.419 ; BMI 45.0-49.9, adult Z68.42 ; Screening breast examination Z12.31 and Dietary counseling and surveillance Z71.3 [place] [address] [address] 4366 Nov, Paranoid schizophrenia F20.0 [place] [id number] [place] [address] 31217- 7360 09 Nov, 2017 Gastroesophageal reflux disease, esophagitis presence not specified K21.9 [place] [id number] [place] [address] 06558- 8198 Oct, Paranoid schizophrenia F20.0 [place] [id number] [address] Oct Chronic pain syndrome G89.4 and Schizoaffective disorder, depressive type F25.1 [place] [id number] [place] [address] 25821- 7012 Oct, Chronic pain syndrome G89.4 and Schizoaffective disorder, depressive type F25.1 [place] [id number] [place] [address] 20578- 1698 16 Oct, 2017 Type 2 diabetes mellitus without complication, without long- term current use of insulin E11.9 [place] [id number] [place] [address] 42711- 2699 12 Oct, 2017 Essential hypertension I10 and DM neuro manif type II E11.49 [place] [id number] [place] [address] 49908- 3593 Oct, [place] [id number] [place] [address] 06079- 3233 Oct, Schizoaffective disorder, depressive type F25.1 and BMI 45.0 -49.9, adult Z68.42 [place] [address] [place] [address] 02747- 9064 Oct, [place] [id number] [place] [address] 30255- 1337 Oct, Paranoid schizophrenia F20.0 [place] [id number] [address] 2783 Oct, Type 2 diabetes mellitus with diabetic neuropathic arthropathy, 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 ; Essential hypertension I10 ; Hypothyroidism (acquired) E03.9 ; Chronic obstructive pulmonary disease, unspecified COPD type J44.9 and Diabetic polyneuropathy associated with type 2 diabetes mellitus E11.42 [facility] [id number] [place] [address] 06508- 8141 Sep, Paranoid schizophrenia F20.0 [place] [id number] [place] [address] 03666- 0300 Sep, Paranoid schizophrenia F20.0 and BMI 45.0-49.9, adult Z68.42 [place] [id number] [place] [address] 85286- 5195 Sep, Schizoaffective disorder, depressive type F25.1 [place] [id number] [place] [address] 66084- 0196 Sep, [facility] [id number] [place] [address] 09151- 8729 Sep, Paranoid schizophrenia F20.0 [facility] [id number] [place] [address] 89978- 8109 Sep, [place] [id number] [place] [address] 00198- 5435 Sep, Hypothyroidism (acquired) E03.9 [facility] [id number] [place] [address] 34856- 0117 Sep, [place] [id number] [place] [address] 26448- 2363 August, Schizoaffective disorder, depressive type F25.1 [facility] [id number] [place] [address] 94848- 1373 August, [facility] [id number] [place] [address] 92567- 7949 August, [facility] [id number] [place] [address] 37174- 8314 August, [place] [id number] [place] [address] 83966- 5655 August, Paranoid schizophrenia F20.0 [place] [id number] [place] [address] 60417- 7843 August, History of lupus Z87.39 and Chronic pain syndrome G89.4 [place] [address] 79547- 7802 August, [facility] [place] [address] 58881 -8402 August, Seasonal allergic rhinitis, unspecified trigger J30.2 and BMI 45.0-49.9, adult Z68.42 [place] [address] 65536- 0818 Jul, Schizoaffective disorder, depressive type F25.1 [place] [address] 10900- 5348 Jul, [place] [address] 86750- 5171 Jul, Hypothyroidism (acquired) E03.9 [place] [id number] [place] [address] 12282- 3955 Jul, Chronic obstructive pulmonary disease, unspecified COPD type J44.9 and Type 2 diabetes mellitus without complication, without long-term current use of insulin E11.9 [place] [id number] [place] [address] 10639- 5089 Jul, Paranoid schizophrenia F20.0 [place] [id number] [place] [address] 32640- 2139 Jun, Hypothyroidism (acquired) E03.9 and Seasonal allergic rhinitis due to pollen J30.1 [facility] [id number] [place] [address] 17296 -9470 Jun, Shortness of breath at rest R06.02 ; COPD exacerbation J44.1 and BMI 45.0-49.9, adult Z68.42 [facility] [id number] [place] [address] 82388- 7960 Jun, [facility] [address] 85969- 5788 Jun, Paranoid schizophrenia F20.0 ; Depression with anxiety F41.8 and BMI 45.0-49.9, adult Z68.42 [facility] [address] 65513- 5643 Jun, Schizoaffective disorder, depressive type F25.1 [facility] [id number] [place] [address] [id number] Jun, Dental caries K02.9 [place] [id number] [place] [address] 47995- 9785 Jun, Paranoid schizophrenia F20.0 [facility] [id number] [place] [address] 61995- 6820 May, Migraine without aura and without status migrainosus, not intractable G43.009 ; DM neuro manif type II E11.49 and Type 2 diabetes mellitus without complication, without long-term current use of insulin E11.9 [facility] [id number] [place] [address] 81505- 4706 May, Migraine without aura and without status migrainosus, not intractable G43.009 [facility] [id number] [place] [address] 71121- 8626 May, Depression with anxiety F41.8 [facility] [id number] [place] [address] [id number] May, [facility] [id number] [place] [address] 93153- 1308 May, [place] [id number] [place] [address] 69171- 4406 12 May, 2017 [place] [address] 80159- 3552 May, Hypothyroidism (acquired) E03.9 [place] [id number] [place] [address] 03252- 2837 08 May, 2017 Paranoid schizophrenia F20.0 [place] [id number] [place] [address] 63153- 0579 08 May, 2017 Type 2 diabetes mellitus [...] N32.81 and Controlled substance agreement signed Z79.899 [id number] [place] [address] 56335- 8728 02 May, 2017 Controlled substance agreement signed Z79.899 [place] [id number] [place] [address] 37254- 9545 Apr, [facility] [id number] [place] [address] [id number] Apr, Dental examination Z01.20 [place] [id number] [place] [address] 57787- 9320 Apr, Paranoid schizophrenia F20.0 [place] [id number] [place] [address] 36810- 8655 Apr, Hypertension, unspecified type I10 [place] [address] [place] [address]- 2838 Apr, Paranoid schizophrenia F20.0 [facility] [id number] [place] [address] 42718- 8621 Apr, [facility] [id number] [place] [address] 00077- 3037 Apr, Tobacco abuse Z72.0 [facility] [id number] [place] [address] 36563- 5595 Apr, [facility] [id number] [place] [address] 77461- 1482 Mar, [facility] [id number] [place] [address] 56281- 7720 Mar, Paranoid schizophrenia F20.0 and BMI 45.0-49.9, adult Z68.42 [place] [id number] [place] [address] 82421- 8562 Mar, Schizoaffective disorder, depressive type F25.1 [facility] [id number] [place] [address] 12793- 6403 Mar, [facility] [id number] [place] [address] 05051- 0154 Mar, Schizoaffective disorder, depressive type F25.1 [facility] [id number] [place] [address] 31435- 9290 Mar, Hypothyroidism, unspecified type E03.9 [facility] [id number] [place] [address] 58577 -9407 Feb, Gastroenteritis K52.9 and BMI 45.0-49.9, adult Z68.42 [facility] [id number] [place] [address] 70025- 0604 Feb, [facility] [id number] [place] [address] 68521- 9221 Feb, [facility] [id number] [place] [address] 07614- 4425 Feb, [place] [address] 76848- 8285 Feb, [place] [address] 35833- 0040 Feb, Paranoid schizophrenia F20.0 [place] [address] 88935- 6238 Feb, Gastroesophageal reflux disease without esophagitis K21.9 ; Other seasonal allergic rhinitis J30.2 ; Other allergic rhinitis J30.89 ; Tobacco abuse Z72.0 and BMI 40.0-44.9, adult Z68.41 [place] [address] 40930- 7423 Feb, Onychomycosis B35.1 ; Callus of foot L84 and DM neuro manif type II E11.49 [place] [address] 66567- 3926 Jan, Chronic allergic rhinitis J30.9 [place] [address] 63057- 0206 Jan, [place] [id number] [place] [address] 19065- 8906 Jan, Schizoaffective disorder, depressive type F25.1 [place] [address] 84693- 6743 Jan, [facility] [address] 46552 -4288 Jan, Sore throat J02.9 and Seasonal allergic rhinitis due to other allergic trigger J30.89 [place] [id number] [place] [address] 98502- 4095 Jan, [place] [address] 75924- 1058 Jan, [facility] [id number] [place] [address] 35006 -7281 Jan, Chronic allergic rhinitis J30.9 [facility] [id number] [place] [address] 37739- 4065 Dec, Paranoid schizophrenia F20.0 ; Primary insomnia F51.01 and Schizoaffective disorder, depressive type F25.1 [facility] [address] 04444- 7711 Dec, Chronic pain syndrome G89.4 ; Cervicalgia of occipito- atlanto-axial region M54.2 ; Menopausal syndrome (hot flashes) N95.1 and Encounter for immunization Z23 [place] [id number] [place] [address] 94289- 9505 14 Dec, 2016 [place] [id number] [place] [address] 98474- 1844 Dec, [place] [id number] [place] [address] 20223- 4956 08 Dec, 2016 Paranoid schizophrenia F20.0 [place] [id number] [place] [address] 77921- 4223 Dec, Schizoaffective disorder, depressive type F25.1 [place] [id number] [place] [address] 01763- 2067 Nov, Hypothyroidism, unspecified type E03.9 [facility] [id number] [place] [address] 14821 -6739 Nov, Acute seasonal allergic rhinitis due to other allergen J30.89 [place] [id number] [place] [address] 03173- 1614 Nov, [place] [id number] [place] [address] 80043- 4644 Nov, Hypothyroidism, unspecified type E03.9 and Other elevated white blood cell (WBC) count D72.828 [place] [id number] [place] [address] 95662- 8229 Nov, Schizoaffective disorder, depressive type F25.1 [place] [id number] [place] [address] 08138- 4331 Nov, Paranoid schizophrenia F20.0 [place] [id number] [place] [address] 83504- 6563 Nov, Type 2 diabetes mellitus without complication, without long- term current use of insulin E11.9 ; Morbid obesity due to excess calories E66.01 and Chronic pain syndrome G89.4 [place] [id number] [place] [address] 33981- 0606 Oct, Paranoid schizophrenia F20.0 [place] [id number] [place] [address] 73281- 3374 Oct, [place] [id number] [place] [address] 49067- 6826 Oct, Schizoaffective disorder, depressive type F25.1 [place] [id number] [place] [address] 16259- 8348 Oct, Hypothyroidism, unspecified type E03.9 and Other elevated white blood cell (WBC) count D72.828 [place] [id number] [place] [address] 05206- 7506 Oct, Morbid obesity due to excess calories E66.01 ; Chronic obstructive pulmonary disease, unspecified COPD type J44.9 ; History of lupus Z87.39 ; Hypothyroidism, unspecified type E03.9 ; Gastroesophageal reflux disease without esophagitis K21.9 ; Primary insomnia F51.01 and Chronic pain syndrome G89.4 [place] [id number] [place] [address] 92249- 6899 Sep, [place] [id number] [place] [address] 84165- 7018 Sep, [place] [id number] [place] [address] 90031- 5113 Sep, [facility] [address] [address]- 1842 Sep, Paranoid schizophrenia F20.0 [facility] [address] [place] [address] 79542- 7883 Sep, [facility] [id number] [place] [address] 63638- 8757 Sep, Paranoid schizophrenia F20.0 [facility] [id number] [place] [address] 07772- 8396 Sep, [facility] [id number] [place] [address] 99405- 0195 August, Paranoid schizophrenia F20.0 [facility] [id number] [place] [address] 85088- 9270 Jul, [facility] [id number] [place] [address] 50869- 2909 Jul, Type 2 diabetes mellitus without complication, without long- term current use of insulin E11.9 ; Morbid obesity due to excess calories E66.01 ; Depression with anxiety F41.8 ; Hypothyroidism, unspecified type E03.9 ; Seasonal allergic rhinitis due to other allergic trigger J30.89 ; Pain, dental K08.89 and Gastroesophageal reflux disease without esophagitis K21.9 [facility] [address] [id number] Jul, Dental examination Z01.20 [facility] [address] [place] [address] 93210- 6627 Jul, Paranoid schizophrenia F20.0 [facility] [id number] [place] [address] 04290- 4663 13 Jun, 2016 Paranoid schizophrenia F20.0 and Depression with anxiety F41.8 [facility] [id number] [place] [address] 59808- 6758 Jun, Paranoid schizophrenia F20.0 and Depression with anxiety F41.8 [place] [id number] [place] [address] 04352- 8811 Jun, [place] [address] 92665- 1342 Jun, [facility] [place] [id number] [place] [address] 38872 -7604 Jun, Seasonal allergic rhinitis due to other allergic trigger J30.89 [facility] [place] [id number] [place] [address] 66524 -6554 May, Sore throat J02.9 ; Other viral agents as the cause of diseases classified elsewhere B97.89 and Acute upper respiratory infection, unspecified J06.9 [place] [id number] [place] [address] 82094- 9373 May, Paranoid schizophrenia F20.0 and Depression with anxiety F41.8 [place] [address] 28082- 0668 Apr, Other seasonal allergic rhinitis J30.2 [place] [id number] [place] [address] 23060- 5950 Apr, Paranoid schizophrenia F20.0 and Depression with anxiety F41.8 [facility] [place] [id number] [place] [address] 45357 -3876 Apr, Bronchitis J40 and Sore throat J02.9 [place] [id number] [place] [address] 45118- 1157 Apr, Type 2 diabetes mellitus without complication, without long- term current use of insulin E11.9 [facility] [place] [id number] [place] [address] 40066 -7413 Apr, Bronchitis J40 [place] [id number] [place] [address] 04222- 2891 Apr, [place] [address] 10165- 0678 Apr, [place] [address] 48499- 4288 Mar, Type 2 diabetes mellitus without complication, [...] R60.9 and Other seasonal allergic rhinitis J30.2 [place] [address] 99472- [address] Mar, Paranoid schizophrenia F20.0 and Depression with anxiety F41.8 [place] [address] [address]- [address] Feb, [place] [address] [address]- [address] Feb, [place] [address] [address]- [address] Feb, [place] [address] [address]- [address] Feb, [place] [address] [address]- [address] Feb, Type 2 diabetes mellitus without complication, without long- term current use of insulin E11.9 ; ARIAS on CPAP G47.33 and Preoperative evaluation to rule out surgical contraindication Z01.818 [place] [address] [address] Feb, Paranoid schizophrenia F20.0 and Depression with anxiety F41.8 [place] [address] [address]- [address] Jan, [place] [address] [address]- [address] Jan, 2016 Paranoid schizophrenia F20.0 and Depression with anxiety F41.8 [facility] [address] [facility] [id number] [address] Jan, [facility] [address] [facility] [id number] [place] [address] [address]- 7245 14 Jan, 2016 Muscle strain T14.8 [facility] [id number] [place] [address] 58714- 0141 Jan, Paranoid schizophrenia F20.0 [facility] [address] [facility] [id number] [place] [address] 97870- 7396 Jan, [facility] [address] [facility] [id number] [place] [address] 54496- 2236 Jan, Paranoid schizophrenia F20.0 and Depression with anxiety F41.8 [facility] [id number] [place] [address] 77298- 9964 Jan, [facility] [address] [facility] [id number] [place] [address] 11855- 6039 Jan, [facility] [id number] [place] [address] 42020- 5306 28 Dec, 2015 [facility] [address] [facility] [id number] [place] [address] 76234- 8694 23 Dec, 2015 Paranoid schizophrenia F20.0 [facility] [address] [id number] [address] 8011 16 Dec, 2015 Paranoid schizophrenia F20.0 and Depression with anxiety F41.8 [facility] [address] [facility] [id number], [place] [address] 8641 Nov, [facility] [address] [facility] [id number] [place] [address] 63851- 3682 24 Nov, 2015 Paranoid schizophrenia F20.0 [facility] [address] [facility] [id number], [place] [address]- 3089 Nov, Paranoid schizophrenia F20.0 and Depression with anxiety F41.8 [address] [facility] [id number] [place] [address] 44046- 5005 Nov, Type 2 diabetes mellitus without complication, without long- term current use of insulin E11.9 ; Paranoid schizophrenia F20.0 ; Chronic obstructive pulmonary disease, unspecified COPD type J44.9 ; Morbid obesity due to excess calories E66.01 and Parkinsonian tremor G20 [facility] [id number] [place] [address] 98163- 9353 Nov, [facility] [id number] [place] [address] 16742- 8263 Oct, Paranoid schizophrenia F20.0 [facility] [id number] [place] [address] 01995- 1662 Oct, Paranoid schizophrenia F20.0 [facility] [id number] [place] [address] 08581- 8420 Oct, Paranoid schizophrenia F20.0 and Depression with anxiety F41.8 [facility] [id number] [place] [address] 57280- 5178 Oct, [facility] [id number] [place] [address] 01007- 9138 Oct, Paranoid schizophrenia F20.0 and Depression with anxiety F41.8 [facility] [id number] [place] [address] 24191- 9508 Oct, Nasal sore J34.89 [facility] [id number] [place] [address] 37188- 2507 Oct, Type 2 diabetes mellitus without complication, without long- term current use of insulin E11.9 ; Depression with anxiety F41.8 ; Hypothyroidism, unspecified type E03.9 and History of lupus Z87.39 [facility] [id number] [place] [address] 40270- 1788 Oct, [facility] [id number] [place] [address] 85911- 9084 Oct, 2016 Type 2 diabetes mellitus without complication, [...] edema R60.9 and History of lupus Z87.39 [facility] [address] 20213- 7733 Feb, [facility] [address] 11378- 4976 Jan, [facility] [address] 60192- 0446 Jan, [facility] [id number] [place] [address] 93855- 2366 Jan, [facility] [id number] [place] [address] 71944- 3500 Dec, [facility] [id number] [place] [address] 75124- 2541 Nov, [facility] [id number] [place] [address] 40329- 4936 Nov, [facility] [id number] [place] [address] 41743- 9606 Oct, [facility] [id number] [place] [address] 40972- 4856 Oct, [facility] [id number] [place] [address] 03626- 2546 Oct, [facility] [id number] [place] [address] 80269- 1183 Sep, Allergic rhinitis 477.9 [facility] [address] [facility] [id number] [place] [address]- 7632 Sep, Rhinitis, allergic 477.9 [facility] [address] [facility] [id number] [place] [address]- 4699 Sep, Rhinitis, allergic 477.9 [facility] [address] [facility] [id number] [place] [address]- 7449 Sep, [facility] [address] [facility] [id number] [place] [address]- 8215 August, [facility] [address] [facility] [id number] [place] [address]- 6167 August, [facility] [address] [facility] [id number] [place] [address]- 4615 August, [facility] [id number] [place] [address]- 3296 Jul, [facility] [address] [id number] [place] [address]- 7571 Jul, [facility] [address] [id number] [place] [address]- 5233 Jul, [facility] [address] [id number] [place] [address]- 8525 16 Jun, 2014 [facility] [id number] [place] [address]- 3617 16 Jun, 2014 [facility] [address] [facility] [id number] [place] [address]- 9675 Jun, [facility] [address] [facility] [id number] [place] [address]- 1891 Jun, [facility] [address] [facility] [id number] [place] [address]- 3501 Jun, [facility] [address] [facility] [id number] [place] [address]- 4206 Jun, [facility] [place] [facility] [address] [id number] [place] [address]- 3168 Jun, 2014 [facility] [place] [facility] [address] [id number] [place] 3776 Jun, 2014 [facility] [place] [facility] [address] [id number] [place] [address]- 1836 May, 2014 [facility] [place] [facility] [address] [id number] [place] [address]- 4826 May, 2014 [facility] [place] [facility] [address] [id number] [place] [address]- 2793 May, [facility] [place] [facility] [address] [id number] [place] [address]- 7224 May, [facility] [place] [facility] [address] [id number] [place] [address]- 7847 Apr, [facility] [place] [facility] [address] [id number] [place] [address]- 1219 Mar, [facility] [place] [facility] [address] [id number] [place] [address]- 0922 Mar, [facility] [place] [facility] [address] [id number] [place] [address]- 6842 Mar, [facility] [place] [facility] [address] [id number] [place] [address]- 4201 Mar, [facility] [place] [facility] [address] [id number] [place] [address]- 9425 Mar, [facility] [place] [facility] [address] [id number] [place] [address]- 8475 Mar, [facility] [place] [facility] [address] [id number] [place] [address]- 9048 Mar, [facility] [place] [facility] [address] [id number] [place] [address]- 6413 Mar, [facility] [place] [facility] [address] [id number] [place] [address]- 7251 Mar, [facility] [place] [facility] [address] [id number] [place] [address]- 0441 Feb, [facility] [place] [facility] [address] [id number] [place] [address]- 4226 Feb, [facility] [place] [facility] [address] [id number] [place] [address]- 4780 Feb, [facility] [place] [facility] [address] [id number] [place] [address]- 8449 Feb, [facility] [place] [facility] [address] [id number] [place] [address]- 0564 Feb, [facility] [place] [facility] [address] [id number] [place] [address]- 7879 Feb, [facility] [place] [facility] [address] [id number] [place] [address]- 2380 Feb, [facility] [place] [facility] [address] [id number] [place] [address]- 7916 Feb, [facility] [place] [facility] [address] [id number] [place] [address]- 3111 Jan, [facility] [place] [facility] [address] [id number] [place] [address]- 0178 23 Jan, 2014 [facility] [place] [facility] [address] [id number] [place] [address]- 1775 16 Jan, 2014 [facility] [place] [facility] [address] [id number], [place] [address]- 0898 16 Jan, 2014 [facility] [place] [facility] [address] [id number] [place] [address]- 2778 15 Jan, 2014 [facility] [place] [facility] [address] [id number], [place] [address]- 2406 15 Jan, 2014 [facility] [place] [facility] [address] [id number][place] [address]- 7507 14 Jan, 2014 [facility] [place] [facility] [address] [id number] [place] [address]- 3070 14 Jan, 2014 [facility] [place] [facility] [address] [id number] [place] [address]- 3395 14 Jan, 2014 [facility] [place] [facility] [address] [id number] [place] [address]- 1166 14 Jan, 2014 [facility] [place] [facility] [address] [id number] [place] [address]- 6465 18 Dec, 2013 [facility] [place] [facility] [address] [id number] [place] [address]- 9750 18 Dec, 2013 [facility] [place] [facility] [address] [id number] [place] [address]- 9346 10 Dec, 2013 [facility] [place] [facility] [address] [id number] [place] [address]- 5066 10 Dec, 2013 [facility] [place] [facility] [address] [id number] [place] [address]- 9071 Nov, [facility] [place] [facility] [address] [id number] [place] [address]- 8130 Nov, [facility] [place] [facility] [address] [id number] [place] [address]- 1356 Nov, [facility] [place] [facility] [address] [id number] [place] [address]- 0523 Nov, [facility] [place] [facility] [address] [id number] [place] [address]- 9759 Nov, [facility] [place] [facility] [address] [id number] [place] [address]- 3347 Oct, [facility] [place] [facility] [address] [id number] [place] [address]- 7698 Oct, [facility] [place] [facility] [address] [id number] [place] [address]- 4044 Oct, [facility] [place] [facility] [address] [id number] [place] [address]- 1622 Oct, [facility] [place] [facility] [address] [id number] [place] [address]- 3448 Sep, [facility] [place] [facility] [address] [id number] [place] [address]- 7724 Sep, [facility] [place] [facility] [address] [id number] [place] [address]- 5781 Sep, [facility] [place] [facility] [address] [id number] [place] [address]- 1369 Sep, [facility] [place] [facility] [address] [id number] [place] [address]- 7562 Sep, [facility] [place] [facility] [address] [id number] [place] [address]- 5062 Sep, [facility] [place] [facility] [address] [id number] [place] [address]- 7694 Sep, [facility] [place] [facility] [address] [id number] [place] [address]- 3753 Sep, [facility] [place] [facility] [address] [id number] [place] [address]- 5687 August, [facility] [place] [facility] [address] [id number] [place] [address]- 4821 August, [facility] [place] [facility] [address] [id number], [place] [address]- 0658 August, [facility] [place] [facility] [address] [id number], [place] [address]- 3807 August, [facility] [place] [facility] [address] [id number] [place] [address]- 3803 August, [facility] [place] [facility] [address] [id number] [place] [address]- 0281 August, [facility] [place] [facility] [address] [id number] [place] [address]- 1850 August, [facility] [place] [facility] [address] [id number] [place] [address]- 2990 Jul, [facility] [place] [facility] [address] [id number] [place] [address]- 0986 Jul, [facility] [place] [facility] [address] [id number] [place] [address]- 3963 Jul, [facility] [place] [facility] [address] [id number] [place] [address]- 6381 Jul, [facility] [place] [facility] [address] [id number] [place] [address]- 5556 Jul, [facility] [place] [facility] [address] [id number] [place] [address]- 3898 Jul, [facility] [place] [facility] [address] [id number] [place] [address]- 6191 Jul, [facility] [place] [facility] [address] [id number] [place] [address]- 5849 Jul, [facility] [place] [facility] [address] [id number] [place] [address]- 3307 Jul, [facility] [place] [facility] [address] [id number] [place] [address]- 1734 Jul, [facility] [place] [facility] [address] [id number] [place] [address]- 0324 Jul, [facility] [place] [facility] [address] [id number] [place] [address]- 5734 Jul, [facility] [place] [facility] [address] [id number] [place] [address]- 6298 Jun, [facility] [place] [facility] [address] [id number] [place] 3812 Jun, [facility] [place] [facility] [address] [id number] [place] 6121 Jun, [facility] [place] [facility] [address] [id number] [place] [address]- 6736 Jun, [facility] [place] [facility] [address] [id number] [place] [address]- 9431 Jun, [facility] [place] [facility] [address] [id number] [place] [address]- 5873 May, [facility] [place] [facility] [address] [id number] [place] [address]- 3623 May, [facility] [place] [facility] [address] [id number] [place] [address]- 0812 May, [facility] [place] [facility] [address] [id number] [place] [address]- 1565 May, [facility] [place] [facility] [address] [id number] [place] [address]- 4230 May, [facility] [place] [facility] [address] [id number] [place] [address]- 2602 May, [facility] [place] [facility] [address] [id number] [place] [address]- 9362 May, [facility] [place] [facility] [address] [id number] [place] [address]- 6392 May, [facility] [place] [facility] [address] [facility] [id number] [place] [address]- 9903 Mar, [facility] [place] [facility] [address] [id number] [place] [address]- 6910 Mar, [facility] [place] [facility] [address] [id number], [place] [address]- 0368 Mar, [facility] [place] [facility] [address] [id number] [place] [address]- 1108 Mar, [facility] [place] [facility] [address] [id number] [place] [address]- 6829 Mar, [facility] [place] [facility] [address] [facility] [id number] [place]- 2335 Mar, [facility] [place] [facility] [address] [id number] [place] [address]- 3801 15 Feb, 2013 [facility] [place] [facility] [address] [id number] [place] [address]- 2850 15 Feb, 2013 [facility] [place] [facility] [address] [id number] [place] [address]- 1740 Jan, [facility] [place] [facility] [address] [id number] [place] 4113 Jan, [facility] [place] [facility] [address] [id number] [place] [address]- 6637 Jan, [facility] [place] [facility] [address] [id number] [place] [address]- 4782 Jan, [facility] [place] [facility] [address] [id number] [place] [address]- 3886 Jan, [facility] [place] [facility] [address] [id number] [place] [address]- 7628 Jan, [facility] [place] [facility] [address] [id number] [place] [address]- 5593 Jan, [facility] [place] [facility] [address] [id number] [place] [address]- 3845 Jan, [facility] [place] [facility] [address] [id number] [place] [address]- 5164 Jan, [facility] [place] [facility] [address] [id number] [place] [address]- 7344 Jan, [facility] [place] [facility] [address] [id number] [place] [address]- 9286 16 Dec, 2012 [facility] [place] [facility] [address] [id number] [place] [address]- 9663 Nov, [facility] [place] [facility] [address] [id number] [place] [address]- 3460 Nov, [facility] [place] [facility] [address] [id number] [place] [address]- 9437 Nov, [facility] [address] [id number] [address]- 3473 Oct, [facility] [address] 7215 Oct, [facility] [address] [id number] [address]- 6543 August, [facility] [address], [place] [address]- 1862 Apr, [facility] [address] [address]- 8963 Apr, [facility] [address], [place] [address]- 1989 Feb, [facility] [address], [place] [address]- 3481 Feb, [facility] [address], [place] [address]- 5825 Dec, [facility] [address]00565[address], [place] [address]- 4411 Dec, [facility] [address]00565[address], [place] [address]- 0965 Oct, [facility] [address] [id number], [place] [address]- 0573 Oct, [facility] [address] [id number] [address]- 0630 Oct, [facility] [address] [id number] [address]- 3477 Jul, IMMUNIZATIONS No Known Immunizations SOCIAL HISTORY [...] illness , last one in [facility] 4 years ago
--- OUTSIDE RECORDS SUMMARY | 2018-09-02 13:19 | XMS REPORT ---
Author Author SOTO STRICKLAND Organization [facility] Address [address] [place] [address] Care Team Providers Care Wash Tank Tender Name Role Phone SOTO STRICKLAND Unavailable PROBLEMS Type Condition ICD9-CM Code HQW29-ZX Code Onset Dates Condition Status SNOMED Code Problem OAB (overactive bladder) N32.81 Active 588549509 Problem Depression with anxiety F41.8 Active 753243860 Problem Other seasonal allergic rhinitis J30.2 Active 882376687 Problem Chronic obstructive pulmonary disease, unspecified COPD type J44.9 Active 77293257 Problem Tobacco abuse Z72.0 Active 813070828 Problem Morbid obesity due to excess calories E66.01 Active 018013188 Problem Dyslipidemia E78.5 Active 264373489 Problem Hypothyroidism (acquired) E03.9 Active 530786074 Problem Essential hypertension I10 Active 92830552 Problem Diabetic polyneuropathy associated with type 2 diabetes mellitus E11.42 Active 760610845 Problem Type 2 diabetes mellitus with diabetic neuropathic arthropathy, 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 Active 921528398 Problem Type 2 diabetes mellitus without complication, without long-term current use of insulin E11.9 Active 339703470 Problem Paranoid schizophrenia F20.0 Active 71562511 Problem Chronic pain syndrome G89.4 Active 372484538 Problem Migraine without aura and without status migrainosus, not intractable G43.009 Active 938446517 Problem Gastroesophageal reflux disease, esophagitis presence not specified K21.9 Active 058836008 Problem Seasonal allergic rhinitis due to pollen J30.1 Active 53522362 Problem COPD exacerbation J44.1 Active 288660020 Problem Seasonal allergic rhinitis due to other allergic trigger J30.89 Active 478426576 Problem Schizoaffective disorder, depressive type F25.1 Active 33080483 Problem History of lupus Z87.39 Active 361658038 Problem Gastroesophageal reflux disease without esophagitis K21.9 Active 763513143 Problem Menopausal syndrome (hot flashes) N95.1 Active 813089200 Problem Other allergic rhinitis J30.89 Active 491146623 Problem Primary insomnia F51.01 Active 6545209 Problem DM neuro manif type II E11.49 Active 63455529 ALLERGIES No Information ENCOUNTERS Encounter Location Date Diagnosis [facility] [id number] [place] [address] 97128- 5207 Jan, [facility] [address] 83287- 7473 Jan, [facility] [address] 01079- 0922 Jan, [place] [address] 88879- 2883 Jan, [place] [address] 14037- 4620 02 Jan, 2018 Chronic obstructive pulmonary disease, unspecified COPD type J44.9 ; BMI 45.0-49.9, adult Z68.42 ; Type 2 diabetes mellitus without complication, without long-term current use of insulin E11.9 ; Hypothyroidism ( acquired) E03.9 ; Encounter for immunization Z23 ; Gastroesophageal reflux disease without esophagitis K21.9 ; Primary insomnia F51.01 and Acute nasopharyngitis J00 [place] [id number] [place] [address] 22551- 0776 Dec, [facility] [address] 27276- 5735 Dec, Schizoaffective disorder, depressive type F25.1 and BMI 45.0 -49.9, adult Z68.42 [facility] [id number] [place] [address] 34041- 1966 Dec, [place] [id number] [place] [address] 97067- 5449 Dec, [facility] [id number] [place] [address] 61821- 6668 Dec, Acute non-recurrent frontal sinusitis J01.10 [facility] [address] [place] [address] 35329- 1497 18 Dec, 2017 Acute non-recurrent frontal sinusitis J01.10 ; Weakness of left leg R29.898 ; At high risk for falls Z91.81 and BMI 45.0-49.9, adult Z68.42 [facility] [id number] [place] [address] 58198- 2539 17 Dec, 2017 [facility] [id number] [place] [address] 53588- 0711 17 Dec, 2017 [facility] [id number] [place] [address] 48759- 3201 Dec, Schizoaffective disorder, depressive type F25.1 [facility] [id number] [place] [address] 55598 -6499 Dec, Acute nasopharyngitis J00 [facility] [id number] [place] [address] 12051- 7036 05 Dec, 2017 Schizoaffective disorder, depressive type F25.1 [facility] [id number] [place] [address] 79610- 2183 Dec, [facility] [id number] [place] [address] 14588- 0285 Nov, Schizoaffective disorder, depressive type F25.1 and BMI 45.0 -49.9, adult Z68.42 [facility] [id number] [place] [address] 36147- 8643 Nov, [facility] [id number] [place] [address] 70402- 2832 Nov, [facility] [id number] [place] [address] 92381- 4474 Nov, Schizoaffective disorder, depressive type F25.1 [facility] [id number] [place] [address] 03349- 3367 Nov, Well woman exam Z01.419 ; BMI 45.0-49.9, adult Z68.42 ; Screening breast examination Z12.31 and Dietary counseling and surveillance Z71.3 [place] [address] [address] 4177 Nov, Paranoid schizophrenia F20.0 [place] [address] [address]- 3179 Nov, Gastroesophageal reflux disease, esophagitis presence not specified K21.9 [place] [address] [place] [address] 52096- 8893 Oct, Paranoid schizophrenia F20.0 [place] [id number] [place] [address] Oct Chronic pain syndrome G89.4 and Schizoaffective disorder, depressive type F25.1 [place] [address] [place] [address] 59373- 2876 Oct, Chronic pain syndrome G89.4 and Schizoaffective disorder, depressive type F25.1 [place] [address] [place] [address] 86136- 2524 Oct, Type 2 diabetes mellitus without complication, without long- term current use of insulin E11.9 [place] [address] [place] [address] 33801- 4492 Oct, Essential hypertension I10 and DM neuro manif type II E11.49 [place] [address] [place] [address] 95439- 4549 Oct, [place] [address] [place] [address] 26151- 0358 Oct, Schizoaffective disorder, depressive type F25.1 and BMI 45.0 -49.9, adult Z68.42 [place] [address] [place] [address] 49101- 1107 Oct, [place] [id number] [place] [address] 65169- 9727 Oct, Paranoid schizophrenia F20.0 [place] [address] 49634- 0355 Oct, Type 2 diabetes mellitus with diabetic neuropathic arthropathy, 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 ; Essential hypertension I10 ; Hypothyroidism (acquired) E03.9 ; Chronic obstructive pulmonary disease, unspecified COPD type J44.9 and Diabetic polyneuropathy associated with type 2 diabetes mellitus E11.42 [place] [address] 53976- 1318 Sep, Paranoid schizophrenia F20.0 [place] [address] 68343- 9494 Sep, Paranoid schizophrenia F20.0 and BMI 45.0-49.9, adult Z68.42 [place] [address] 68517- 9955 Sep, Schizoaffective disorder, depressive type F25.1 [place] [address] 93045- 2688 Sep, [place] [address] 88650- 9974 Sep, Paranoid schizophrenia F20.0 [place] [id number] [place] [address] 94717- 9421 Sep, [place] [address] 41375- 7505 Sep, Hypothyroidism (acquired) E03.9 [place] [address] 10612- 2362 Sep, [place] [address] 32987- 3662 August, Schizoaffective disorder, depressive type F25.1 [place] [address] 25670- 0757 August, [facility] [id number] [place] [address] 09638- 3261 August, [facility] [address] 60783- 0189 August, [place] [address] 30819- 0916 August, Paranoid schizophrenia F20.0 [place] [address] 52928- 3304 August, History of lupus Z87.39 and Chronic pain syndrome G89.4 [place] [address] 66450- 9095 August, [facility] [address] 82857 -4323 August, Seasonal allergic rhinitis, unspecified trigger J30.2 and BMI 45.0-49.9, adult Z68.42 [place] [id number] [place] [address] 69577- 1488 Jul, Schizoaffective disorder, depressive type F25.1 [place] [id number] [place] [address] 88422- 1001 Jul, [place] [id number] [place] [address] 93860- 7245 Jul, Hypothyroidism (acquired) E03.9 [place] [address] 62721- 5766 Jul, Chronic obstructive pulmonary disease, unspecified COPD type J44.9 and Type 2 diabetes mellitus without complication, without long-term current use of insulin E11.9 [place] [id number] [place] [address] 63088- 8534 Jul, Paranoid schizophrenia F20.0 [place] [id number] [place] [address] 39285- 2811 Jun, Hypothyroidism (acquired) E03.9 and Seasonal allergic rhinitis due to pollen J30.1 [facility] [address] 09443 -2850 Jun, Shortness of breath at rest R06.02 ; COPD exacerbation J44.1 and BMI 45.0-49.9, adult Z68.42 [facility] [address] 87366- 6966 Jun, [facility] [address] 27443- 0957 Jun, Paranoid schizophrenia F20.0 ; Depression with anxiety F41.8 and BMI 45.0-49.9, adult Z68.42 [facility] [address] 68212- 1347 20 Jun, 2017 Schizoaffective disorder, depressive type F25.1 [facility] [address] [id number] Jun, Dental caries K02.9 [facility] [address] 93280- 0560 Jun, Paranoid schizophrenia F20.0 [facility] [address] 58052- 3334 May, Migraine without aura and without status migrainosus, not intractable G43.009 ; DM neuro manif type II E11.49 and Type 2 diabetes mellitus without complication, without long-term current use of insulin E11.9 [facility] [id number] [place] [address] 95681- 6566 May, Migraine without aura and without status migrainosus, not intractable G43.009 [facility] [address] 11960- 8687 May, Depression with anxiety F41.8 [facility] [address] [id number] May, [place] [id number] [place] [address] 00571- 8172 May, [place] [address] 19790- 9574 May, [place] [id number] [place] [address] 38499- 6081 May, Hypothyroidism (acquired) E03.9 [place] [address] 73207- 5934 May, Paranoid schizophrenia F20.0 [place] [address] 28903- 4393 May, Type 2 diabetes mellitus without complication, [...] N32.81 and Controlled substance agreement signed Z79.899 [place] [address] 65586- 7207 May, Controlled substance agreement signed Z79.899 [place] [id number] [place] [address] 01647- 9169 Apr, [facility] [address] [id number] Apr, Dental examination Z01.20 [place] [id number] [place] [address] 22816- 0090 Apr, Paranoid schizophrenia F20.0 [place] [address] 68062- 9969 Apr, Hypertension, unspecified type I10 [facility] [id number] [place] [address] 15582- 5500 Apr, Paranoid schizophrenia F20.0 [facility] [id number] [place] [address] 00448- 6337 Apr, [facility] [id number] [place] [address] 84340- 2326 Apr, Tobacco abuse Z72.0 [facility] [address] 74543- 3523 Apr, [place] [address] 54825- 0071 Mar, [place] [id number] [place] [address] 22863- 1206 Mar, Paranoid schizophrenia F20.0 and BMI 45.0-49.9, adult Z68.42 [facility] [id number] [place] [address] 75056- 4492 Mar, Schizoaffective disorder, depressive type F25.1 [place] [id number] [place] [address] 55161- 0087 Mar, [facility] [id number] [place] [address] 77316- 5080 Mar, Hypothyroidism, unspecified type E03.9 [facility] [id number] [place] [address] 66862- 0674 Mar, Schizoaffective disorder, depressive type F25.1 [facility] [id number] [place] [address] 51129 -2913 Feb, Gastroenteritis K52.9 and BMI 45.0-49.9, adult Z68.42 [facility] [id number] [place] [address] 71329- 6857 Feb, [facility] [id number] [place] [address] 51085- 7962 Feb, [facility] [id number] [place] [address] 48548- 5999 Feb, [facility] [id number] [place] [address] 40317- 4510 Feb, [place] [address] 98010- 8394 Feb, Paranoid schizophrenia F20.0 [place] [id number] [place] [address] 05375- 1350 Feb, Gastroesophageal reflux disease without esophagitis K21.9 ; Other seasonal allergic rhinitis J30.2 ; Other allergic rhinitis J30.89 ; Tobacco abuse Z72.0 and BMI 40.0-44.9, adult Z68.41 [place] [address] 57498- 6856 Feb, Onychomycosis B35.1 ; Callus of foot L84 and DM neuro manif type II E11.49 [place] [id number] [place] [address] 22581- 8957 Jan, Chronic allergic rhinitis J30.9 [place] [id number] [place] [address] 64541- 9985 Jan, [place] [id number] [place] [address] 41063- 8136 Jan, Schizoaffective disorder, depressive type F25.1 [place] [id number] [place] [address] 22536- 2382 Jan, [facility] [address] 87049 -8155 Jan, Sore throat J02.9 and Seasonal allergic rhinitis due to other allergic trigger J30.89 [place] [id number] [place] [address] 86034- 6931 Jan, [place] [id number] [place] [address] 60884- 8621 Jan, [facility] [id number] [place] [address] 59587 -8849 Jan, Chronic allergic rhinitis J30.9 [facility] [id number] [place] [address] 46987- 7900 Dec, Paranoid schizophrenia F20.0 ; Primary insomnia F51.01 and Schizoaffective disorder, depressive type F25.1 [facility] [id number] [place] [address] 29373- 7526 Dec, Chronic pain syndrome G89.4 ; Cervicalgia of occipito- atlanto-axial region M54.2 ; Menopausal syndrome (hot flashes) N95.1 and Encounter for immunization Z23 [facility] [id number] [place] [address] 73500- 8991 14 Dec, 2016 [place] [id number] [place] [address] 89206- 5123 Dec, [facility] [id number] [place] [address] 83704- 9363 08 Dec, 2016 Paranoid schizophrenia F20.0 [facility] [id number] [place] [address] 44504- 5423 Dec, Schizoaffective disorder, depressive type F25.1 [facility] [id number] [place] [address] 63775- 9272 Nov, Hypothyroidism, unspecified type E03.9 [facility] [id number] [place] [address] 11006 -2379 Nov, Acute seasonal allergic rhinitis due to other allergen J30.89 [facility] [id number] [place] [address] 70447- 8516 Nov, [facility] [id number] [place] [address] 73154- 4817 Nov, Hypothyroidism, unspecified type E03.9 and Other elevated white blood cell (WBC) count D72.828 [place] [id number] [place] [address] 61383- 9712 Nov, Schizoaffective disorder, depressive type F25.1 [place] [id number] [place] [address] 21587- 6458 Nov, Paranoid schizophrenia F20.0 [place] [id number] [place] [address] 84147- 2959 Nov, Type 2 diabetes mellitus without complication, without long- term current use of insulin E11.9 ; Morbid obesity due to excess calories E66.01 and Chronic pain syndrome G89.4 [place] [id number] [place] [address] 31016- 6924 Oct, Paranoid schizophrenia F20.0 [place] [id number] [place] [address] 25012- 1463 Oct, [place] [id number] [place] [address] 50060- 7177 Oct, Schizoaffective disorder, depressive type F25.1 [place] [id number] [place] [address] 16048- 7035 Oct, Hypothyroidism, unspecified type E03.9 and Other elevated white blood cell (WBC) count D72.828 [place] [id number] [place] [address] 50464- 8899 Oct, Morbid obesity due to excess calories E66.01 ; Chronic obstructive pulmonary disease, unspecified COPD type J44.9 ; History of lupus Z87.39 ; Hypothyroidism, unspecified type E03.9 ; Gastroesophageal reflux disease without esophagitis K21.9 ; Primary insomnia F51.01 and Chronic pain syndrome G89.4 [place] [address] [place] [address] 37394- 4263 Sep, [place] [id number] [place] [address] 66397- 2562 Sep, [facility] [address] [address]- 5986 Sep, [facility] [id number] [place] [address] 46391- 8695 Sep, Paranoid schizophrenia F20.0 [facility] [address] [address]- 5668 Sep, [facility] [id number] [place] [address] 73768- 7360 Sep, Paranoid schizophrenia F20.0 [facility] [address] [place] [address] 24121- 7684 Sep, [facility] [id number] [place] [address] 92412- 4980 August, Paranoid schizophrenia F20.0 [facility] [id number] [place] [address] 25430- 5771 Jul, [facility] [address] [place] [address] 80388- 3722 Jul, Type 2 diabetes mellitus without complication, without long- term current use of insulin E11.9 ; Morbid obesity due to excess calories E66.01 ; Depression with anxiety F41.8 ; Hypothyroidism, unspecified type E03.9 ; Seasonal allergic rhinitis due to other allergic trigger J30.89 ; Pain, dental K08.89 and Gastroesophageal reflux disease without esophagitis K21.9 [facility] [address] [id number] Jul, Dental examination Z01.20 [facility] [address] [place] [address] 18834- 5994 07 Jul, 2016 Paranoid schizophrenia F20.0 [facility] [address] [place] [address] 05189- 3299 Jun, Paranoid schizophrenia F20.0 and Depression with anxiety F41.8 [facility] [address] [place] [address] 24772- 9263 10 Jun, 2016 Paranoid schizophrenia F20.0 and Depression with anxiety F41.8 [place] [id number] [place] [address] 88665- 9467 09 Jun, 2016 [place] [id number] [place] [address] 91850- 9878 Jun, [facility] [address] 24739 -6642 Jun, Seasonal allergic rhinitis due to other allergic trigger J30.89 [facility] [place] [id number] [place] [address] 20220 -6399 May, Sore throat J02.9 ; Other viral agents as the cause of diseases classified elsewhere B97.89 and Acute upper respiratory infection, unspecified J06.9 [place] [id number] [place] [address] 62360- 5330 08 May, 2016 Paranoid schizophrenia F20.0 and Depression with anxiety F41.8 [place] [id number] [place] [address] 30156- 7089 Apr, Other seasonal allergic rhinitis J30.2 [place] [id number] [place] [address] 89040- 6829 Apr, Paranoid schizophrenia F20.0 and Depression with anxiety F41.8 [facility] [place] [id number] [place] [address] 75642 -6502 Apr, Bronchitis J40 and Sore throat J02.9 [place] [id number] [place] [address] 72930- 5866 Apr, Type 2 diabetes mellitus without complication, without long- term current use of insulin E11.9 [facility] [place] [id number] [place] [address] 92372 -9067 Apr, Bronchitis J40 [place] [id number] [place] [address] 22329- 0835 Apr, [place] [id number] [place] [address] 77984- 6887 Apr, [place] [address] [place] [address] [id number] [place] [address] 96949- 2517 Mar, Type 2 diabetes mellitus without complication, [...] R60.9 and Other seasonal allergic rhinitis J30.2 [place] [id number] [place] [address] 37736- 7873 Mar, Paranoid schizophrenia F20.0 and Depression with anxiety F41.8 [place] [address] [place] [id number] [place] [address] [phone] Feb, [place] [address] [place] [id number] [place] [address] [phone] Feb, [place] [address] [place] [id number] [place] [address] [phone] Feb, [place] [address] [place] [id number] [place] [address] [phone] Feb, [place] [address] [place] [id number] [place] [address] [phone] Feb, Type 2 diabetes mellitus without complication, without long- term current use of insulin E11.9 ; ARIAS on CPAP G47.33 and Preoperative evaluation to rule out surgical contraindication Z01.818 [place] [id number] [place] [address] 30261- 2285 Feb, Paranoid schizophrenia F20.0 and Depression with anxiety F41.8 [place] [id number] [place] [address] 17545- 9466 Jan, [facility] [address] [facility] [id number] [address] 9359 18 Jan, 2016 Paranoid schizophrenia F20.0 and Depression with anxiety F41.8 [facility] [address] [facility] [id number] [place] [address] 4895 17 Jan, 2016 [facility] [address] [facility] [id number] [address] 6206 14 Jan, 2016 Muscle strain T14.8 [facility] [address] [facility] [id number] [place] [address] 0089 10 Jan, 2016 Paranoid schizophrenia F20.0 [facility] [address] [facility] [id number] [place] [address]- 3331 07 Jan, 2016 [facility] [address] [id number] [address] 8541 05 Jan, 2016 Paranoid schizophrenia F20.0 and Depression with anxiety F41.8 [facility] [address] [facility] [id number] [address] 5958 Jan, [facility] [address] [id number] [address] 5494 Jan, [facility] [address] [id number] [address] 3569 28 Dec, 2015 [facility] [address] [id number] [address] 8014 23 Dec, 2015 Paranoid schizophrenia F20.0 [facility] [address] [facility] [id number] [address]- 0498 16 Dec, 2015 Paranoid schizophrenia F20.0 and Depression with anxiety F41.8 [facility] [address] [facility] [id number] [address]- 3420 31 Nov, 2015 [facility] [address] [facility] [id number] [address]- 0960 24 Nov, 2015 Paranoid schizophrenia F20.0 [facility] [id number] [place] [address] 11763- 5753 Nov, Paranoid schizophrenia F20.0 and Depression with anxiety F41.8 [place] [id number] [place] [address] 01967- 2266 Nov, Type 2 diabetes mellitus without complication, without long- term current use of insulin E11.9 ; Paranoid schizophrenia F20.0 ; Chronic obstructive pulmonary disease, unspecified COPD type J44.9 ; Morbid obesity due to excess calories E66.01 and Parkinsonian tremor G20 [place] [id number] [place] [address] 67953- 2280 Nov, [place] [id number] [place] [address] 62047- 3854 Oct, Paranoid schizophrenia F20.0 [place] [id number] [place] [address] 94314- 4688 Oct, Paranoid schizophrenia F20.0 [place] [id number] [place] [address] 85522- 3396 Oct, Paranoid schizophrenia F20.0 and Depression with anxiety F41.8 [place] [id number] [place] [address] 18755- 9842 Oct, [place] [id number] [place] [address] 38183- 1035 Oct, Paranoid schizophrenia F20.0 and Depression with anxiety F41.8 [place] [id number] [place] [address] 52051- 8639 Oct, Nasal sore J34.89 [place] [id number] [place] [address] 11850- 3081 Oct, Type 2 diabetes mellitus without complication, without long- term current use of insulin E11.9 ; Depression with anxiety F41.8 ; Hypothyroidism, unspecified type E03.9 and History of lupus Z87.39 [place] [id number] [place] [address] 28530- 2546 Oct, [facility] [address] [id number] [address]- 8346 Oct, Type 2 diabetes mellitus without complication, [...] edema R60.9 and History of lupus Z87.39 [facility] [id number] [place] [address] 27535- 9676 Feb, [facility] [id number] [place] [address] 13643- 5116 Jan, [facility] [id number] [place] [address] 90301- 9276 Jan, [facility] [id number] [place] [address] 92171- 8026 Jan, [facility] [id number] [place] [address] 85295- 2546 Dec, [facility] [id number] [place] [address] 01672- 9446 Nov, [facility] [id number] [place] [address] 97665- 2546 Nov, [facility] [id number] [place] [address] 68933 2546 Oct, [facility] [id number] [place] [address] 60152- 2546 Oct, [facility] [id number] [place] [address] 78274- 2546 Oct, [facility] [address] [facility] [id number] [place] [address]- 1461 12 Sep, 2014 Allergic rhinitis 477.9 [facility] [address] [facility] [id number] [place] [address]- 2135 11 Sep, 2014 Rhinitis, allergic 477.9 [facility] [address] [id number] [place] [address]- 7766 10 Sep, 2014 Rhinitis, allergic 477.9 [facility] [address] [facility] [id number] [place] [address]- 6813 Sep, [facility] [address] [id number] [place] [address]- 2764 August, [facility] [address] [facility] [id number] [place] [address]- 7250 August, [facility] [id number] [place] [address]- 6162 August, [facility] [id number] [place] [address]- 5015 28 Jul, 2014 [facility] [address] [id number] [place] [address]- 3311 14 Jul, 2014 [facility] [address] [id number] [place] [address]- 1747 Jul, [facility] [address] [id number] [place] [address]- 9104 16 Jun, 2014 [facility] [address] [facility] [id number] [address]- 8699 16 Jun, 2014 [facility] [address] [id number] [place] [address]- 6962 Jun, [facility] [address] [facility] [id number] [place] [address]- 5362 Jun, [facility] [address] [id number] [address]- 2344 Jun, [facility] [place] [facility] [address] [id number] [place] [address]- 7405 Jun, 2014 [facility] [place] [facility] [address] [id number] [place] [address]- 9990 Jun, 2014 [facility] [place] [facility] [address] [id number] [place] [address]- 2410 Jun, 2014 [facility] [place] [facility] [address] [id number] [place] [address]- 9369 May, 2014 [facility] [place] [facility] [address] [id number] [place] [address]- 5038 May, 2014 [facility] [place] [facility] [address] [id number] [place] [address]- 9900 May, 2014 [facility] [place] [facility] [address] [id number] [place] [address]- 8151 May, 2014 [facility] [place] [facility] [address] [id number] [place] [address]- 1259 Apr, [facility] [place] [facility] [address] [id number] [place] [address]- 1642 Mar, [facility] [place] [facility] [address] [id number] [place] [address]- 5629 Mar, [facility] [place] [facility] [address] [id number] [place] [address]- 2110 Mar, [facility] [place] [facility] [address] [id number] [place] [address]- 9087 Mar, [facility] [place] [facility] [address] [id number] [place] [address]- 0371 Mar, [facility] [place] [facility] [address] [id number] [place] [address]- 9932 Mar, [facility] [place] [facility] [address] [id number] [place] [address]- 1136 Mar, [facility] [place] [facility] [address] [id number] [place] [address]- 0938 Mar, [facility] [place] [facility] [address] [id number] [place] [address]- 3069 Mar, [facility] [place] [facility] [address] [id number] [place] [address]- 3954 Feb, [facility] [place] [facility] [address] [id number] [place] [address]- 7855 Feb, [facility] [place] [facility] [address] [id number] [place] [address]- 6227 Feb, [facility] [place] [facility] [address] [id number] [place] [address]- 9697 Feb, [facility] [place] [facility] [address] [id number] [place] [address]- 1205 Feb, [facility] [place] [facility] [address] [id number] [place] [address]- 8722 Feb, [facility] [place] [facility] [address] [id number] [place] [address]- 5744 Feb, [facility] [place] [facility] [address] [id number] [place] [address]- 4719 Feb, [facility] [place] [facility] [address] [id number] [place] [address]- 1712 Jan, [facility] [place] [facility] [address] [id number] [place] [address]- 4515 Jan, [facility] [place] [facility] [address] [id number] [place] [address]- 3461 16 Jan, 2014 [facility] [place] [facility] [address] [id number] [place] [address]- 1717 16 Jan, 2014 [facility] [place] [facility] [address] [id number] [address]- 7282 15 Jan, 2014 [facility] [place] [facility] [address] [id number] [place] [address]- 6840 15 Jan, 2014 [facility] [place] [facility] [address] [id number] [place] [address]- 5248 14 Jan, 2013 [facility] [place] [facility] [address] [id number] [place] [address]- 4979 14 Jan, 2014 [facility] [place] [facility] [address] [id number] [place] [address]- 9582 14 Jan, 2014 [facility] [place] [facility] [address] [id number] [place] [address]- 3738 14 Jan, 2014 [facility] [place] [facility] [address] [id number] [place] [address]- 6618 18 Dec, 2013 [facility] [place] [facility] [address] [id number] [place] [address]- 2806 18 Dec, 2013 [facility] [place] [facility] [address] [id number] [place] [address]- 2896 10 Dec, 2013 [facility] [place] [facility] [address] [id number] [place] [address]- 7591 10 Dec, 2013 [facility] [place] [facility] [address] [id number] [place] [address]- 0028 Nov, [facility] [place] [facility] [address] [id number] [place] [address]- 4933 Nov, [facility] [place] [facility] [address] [id number] [place] [address]- 8456 Nov, [facility] [place] [facility] [address] [id number] [place] [address]- 8645 Nov, [facility] [place] [facility] [address] [id number] [place] [address]- 8950 Nov, [facility] [place] [facility] [address] [id number] [place] [address]- 5610 Oct, [facility] [place] [facility] [address] [id number] [place] [address]- 1262 Oct, [facility] [place] [facility] [address] [id number] [place] [address]- 3105 Oct, [facility] [place] [facility] [address] [id number] [place] [address]- 6025 Oct, [facility] [place] [facility] [address] [id number] [place] [address]- 3463 Sep, [facility] [place] [facility] [address] [id number] [place] [address]- 5406 Sep, [facility] [place] [facility] [address] [id number] [place] [address]- 3792 Sep, [facility] [place] [facility] [address] [id number] [place] [address]- 1407 Sep, [facility] [place] [facility] [address] [id number] [place] [address]- 3505 Sep, [facility] [place] [facility] [address] [id number] [place] [address]- 2362 Sep, [facility] [place] [facility] [address] [id number] [place] [address]- 2006 Sep, [facility] [place] [facility] [address] [id number] [place] [address]- 2340 Sep, [facility] [place] [facility] [address] [id number] [place] [address]- 9812 August, [facility] [place] [facility] [address] [id number] [place] [address]- 6760 August, [facility] [place] [facility] [address] [id number] [place] [address]- 3525 August, [facility] [place] [facility] [address] [id number] [place] [address]- 4124 August, [facility] [place] [facility] [address] [id number] [place] [address]- 9617 August, [facility] [place] [facility] [address] [id number] [place] 2788 August, [facility] [place] [facility] [address] [id number] [place] [address]- 1654 August, [facility] [place] [facility] [address] [id number] [place] [address]- 7824 Jul, [facility] [place] [facility] [address] [id number] [place] [address]- 3918 Jul, [facility] [place] [facility] [address] [id number] [place] [address]- 7294 Jul, [facility] [place] [facility] [address] [id number] [place] [address]- 5746 Jul, [facility] [place] [facility] [address] [id number] [place] [address]- 8365 Jul, [facility] [place] [facility] [address] [id number] [place] [address]- 1359 Jul, [facility] [place] [facility] [address] [id number] [place] [address]- 5963 Jul, [facility] [place] [facility] [address] [id number] [place] [address]- 7004 Jul, [facility] [place] [facility] [address] [id number] [place] [address]- 6612 Jul, [facility] [place] [facility] [address] [id number] [place] [address]- 4542 Jul, [facility] [place] [facility] [address] [id number] [place] [address]- 3110 Jul, [facility] [place] [facility] [address] [id number] [place] [address]- 3433 Jul, [facility] [place] [facility] [address] [id number] [place] 3104 Jun, [facility] [place] [facility] [address] [id number] [place] [address]- 1539 Jun, [facility] [place] [facility] [address] [id number] [place] [address]- 4098 Jun, [facility] [place] [facility] [address] [id number] [place] [address]- 7418 Jun, [facility] [place] [facility] [address] [id number] [place] [address]- 8348 Jun, [facility] [place] [facility] [address] [id number] [place] [address]- 9182 May, [facility] [place] [facility] [address] [id number] [place] [address]- 6740 May, [facility] [place] [facility] [address] [id number] [place] [address]- 0635 May, [facility] [place] [facility] [address] [id number] [place] [address]- 3212 May, [facility] [place] [facility] [address] [id number] [place] [address]- 0875 May, [facility] [place] [facility] [address] [id number] [place] [address]- 4627 May, [facility] [place] [facility] [address] [id number] [place] [address]- 6130 May, [facility] [place] [facility] [address] [facility] [id number] [place] [address]- 9234 May, [facility] [place] [facility] [address] [id number] [place] [address]- 8310 Mar, [facility] [place] [facility] [address] [id number] [place] [address]- 0375 Mar, [facility] [place] [facility] [address] [id number] [place] [address]- 0193 Mar, [facility] [place] [facility] [address] [id number] [place] [address]- 9552 Mar, [facility] [place] [facility] [address] [facility] [id number] [place] [address]- 6261 Mar, [facility] [place] [facility] [address] [id number] [place] [address]- 8802 Mar, [facility] [place] [facility] [address] [id number] [place] [address]- 1819 Feb, [facility] [place] [facility] [address] [id number] [place] [address]- 7519 Feb, [facility] [place] [facility] [address] [id number] [place] [address]- 9309 Jan, [facility] [place] [facility] [address] [id number] [place] [address]- 3515 Jan, [facility] [place] [facility] [address] [id number] [place] 7702 Jan, [facility] [place] [facility] [address] [id number] [place] [address]- 1944 Jan, [facility] [place] [facility] [address] [id number] [place] [address]- 5359 Jan, [facility] [place] [facility] [address] [id number] [place] [address]- 1141 Jan, [facility] [place] [facility] [address] [id number] [place] [address]- 6176 Jan, [facility] [place] [facility] [address] [id number] [place] [address]- 6478 Jan, [facility] [place] [facility] [address] [id number] [place] [address]- 9759 Jan, [facility] [place] [facility] [address] [id number] [address]- 9186 Jan, [facility] [place] [facility] [address] [id number] [place] [address]- 4901 Dec, [facility] [place] [facility] [address] [id number] [place] [address]- 5782 Nov, [facility] [place] [facility] [address] [id number] [place] [address]- 6348 Nov, [facility] [place] [facility] [address] [facility] [id number] [place] [address]- 0995 Nov, [facility] [address] [facility] [id number] [place] [address]- 0204 Oct, [facility] [address] [facility] [id number] [address]- 9576 Oct, [facility] [address] [facility] [id number] [address]- 4244 August, [facility] [address] [facility] [id number] [address]- 3338 Apr, [facility] [address] [facility] [id number] [place] [address]- 8881 Apr, [facility] [address] [facility] [id number] 1727 Feb, [facility] [address] [address]- 1777 Feb, [facility] [address]005[address] [address]- 9542 Dec, [facility] [address]00565[address] [address]- 9859 Dec, [facility] [address] [address]- 5528 Oct, [facility] [address] [address]- 9117 Oct, [facility] [address] [id number] [address]- 0106 Oct, [facility] [address] [id number] 9398 Jul, IMMUNIZATIONS No Known Immunizations SOCIAL HISTORY Never Assessed REASON FOR VISIT Ambein 01/10 PLAN OF CARE VITAL SIGNS MEDICATIONS Medication [...]
--- OUTSIDE RECORDS SUMMARY | 2018-09-02 13:20 | XMS REPORT ---
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 Name Role Phone UMESH PINEDA Unavailable PROBLEMS Type Condition ICD9-CM Code AIZ33-YI Code Onset Dates Condition Status SNOMED Code Problem OAB (overactive bladder) N32.81 Active 794396095 Problem Depression with anxiety F41.8 Active 211425241 Problem Other seasonal allergic rhinitis J30.2 Active 140356155 Problem Chronic obstructive pulmonary disease, unspecified COPD type J44.9 Active 74510837 Problem Tobacco abuse Z72.0 Active 446002509 Problem Morbid obesity due to excess calories E66.01 Active 552004043 Problem Dyslipidemia E78.5 Active 406591786 Problem Hypothyroidism (acquired) E03.9 Active 849395019 Problem Essential hypertension I10 Active 94931923 Problem Diabetic polyneuropathy associated with type 2 diabetes mellitus E11.42 Active 409709771 Problem Type 2 diabetes mellitus with diabetic neuropathic arthropathy, 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 Active 585076234 Problem Type 2 diabetes mellitus without complication, without long-term current use of insulin E11.9 Active 023038061 Problem Paranoid schizophrenia F20.0 Active 23315769 Problem Chronic pain syndrome G89.4 Active 088644276 Problem Migraine without aura and without status migrainosus, not intractable G43.009 Active 695236364 Problem Gastroesophageal reflux disease, esophagitis presence not specified K21.9 Active 386668229 Problem Seasonal allergic rhinitis due to pollen J30.1 Active 17341633 Problem COPD exacerbation J44.1 Active 370737761 Problem Seasonal allergic rhinitis due to other allergic trigger J30.89 Active 075541550 Problem Schizoaffective disorder, depressive type F25.1 Active 05196948 Problem History of lupus Z87.39 Active 088234941 Problem Gastroesophageal reflux disease without esophagitis K21.9 Active 798534285 Problem Menopausal syndrome (hot flashes) N95.1 Active 067593866 Problem Other allergic rhinitis J30.89 Active 039967708 Problem Primary insomnia F51.01 Active 6014867 Problem DM neuro manif type II E11.49 Active 45977006 ALLERGIES No Information ENCOUNTERS Encounter Location Date Diagnosis [facility] [id number] [place] [address] 97446- 1919 Jan, [facility] [address] 97452- 0985 Jan, [facility] [address] 28080- 9419 Jan, [place] [address] 06923- 4222 Jan, [facility] [address] 59589- 7342 02 Jan, 2018 Chronic obstructive pulmonary disease, unspecified COPD type J44.9 ; BMI 45.0-49.9, adult Z68.42 ; Type 2 diabetes mellitus without complication, without long-term current use of insulin E11.9 ; Hypothyroidism ( acquired) E03.9 ; Encounter for immunization Z23 ; Gastroesophageal reflux disease without esophagitis K21.9 ; Primary insomnia F51.01 and Acute nasopharyngitis J00 [facility] [id number] [place] [address] 46833- 1781 Dec, [facility] [address] 85937- 0531 Dec, Schizoaffective disorder, depressive type F25.1 and BMI 45.0 -49.9, adult Z68.42 [facility] [id number] [place] [address] 65307- 2963 Dec, [facility] [id number] [place] [address] 52516- 2116 Dec, [facility] [address] 51788- 4691 Dec, Acute non-recurrent frontal sinusitis J01.10 [facility] [address] [address] 18 Dec, 2017 Acute non-recurrent frontal sinusitis J01.10 ; Weakness of left leg R29.898 ; At high risk for falls Z91.81 and BMI 45.0-49.9, adult Z68.42 [facility] [address] [place] [address] 94168- 4594 17 Dec, 2017 [facility] [id number] [place] [address] 38056- 9812 Dec, [facility] [id number] [place] [address] 24636- 2357 Dec, Schizoaffective disorder, depressive type F25.1 [facility] [address] [place] [address] 28112 -8543 Dec, Acute nasopharyngitis J00 [facility] [id number] [place] [address] 23813- 7524 05 Dec, 2017 Schizoaffective disorder, depressive type F25.1 [facility] [id number] [place] [address] 01416- 6759 Dec, [facility] [address] [place] [address] 60650- 6744 Nov, Schizoaffective disorder, depressive type F25.1 and BMI 45.0 -49.9, adult Z68.42 [facility] [address] [place] [address] 13943- 9167 Nov, [facility] [id number] [place] [address] 95719- 2693 Nov, [facility] [id number] [place] [address] 61103- 7852 Nov, Schizoaffective disorder, depressive type F25.1 [facility] [id number] [place] [address] 52339- 5115 Nov, Well woman exam Z01.419 ; BMI 45.0-49.9, adult Z68.42 ; Screening breast examination Z12.31 and Dietary counseling and surveillance Z71.3 [place] [address] [place] [address] 89410- 0144 Nov, Paranoid schizophrenia F20.0 [place] [address] [place] [address] 85467- 3797 Nov, Gastroesophageal reflux disease, esophagitis presence not specified K21.9 [place] [id number] [place] [address] 71575- 2634 Oct, Paranoid schizophrenia F20.0 [place] [id number] [address] Oct Chronic pain syndrome G89.4 and Schizoaffective disorder, depressive type F25.1 [address] [place] [address] 57251- 9269 Oct, Chronic pain syndrome G89.4 and Schizoaffective disorder, depressive type F25.1 [place] [id number] [place] [address] 36517- 5574 Oct, Type 2 diabetes mellitus without complication, without long- term current use of insulin E11.9 [place] [id number] [place] [address] 95853- 7812 Oct, Essential hypertension I10 and DM neuro manif type II E11.49 [place] [id number] [place] [address] 86620- 2828 Oct, [place] [id number] [place] [address] 10939- 1534 Oct, Schizoaffective disorder, depressive type F25.1 and BMI 45.0 -49.9, adult Z68.42 [place] [id number] [place] [address] 35324- 2354 Oct, [place] [id number] [place] [address] 22663- 0963 Oct, Paranoid schizophrenia F20.0 [place] [id number] [place] [address] 91250- 4334 10 Oct, 2017 Type 2 diabetes mellitus with diabetic neuropathic arthropathy, 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 ; Essential hypertension I10 ; Hypothyroidism (acquired) E03.9 ; Chronic obstructive pulmonary disease, unspecified COPD type J44.9 and Diabetic polyneuropathy associated with type 2 diabetes mellitus E11.42 [place] [id number] [place] [address] 59078- 3769 Sep, Paranoid schizophrenia F20.0 [place] [address] 86760- 9853 Sep, Paranoid schizophrenia F20.0 and BMI 45.0-49.9, adult Z68.42 [place] [address] 68789- 8194 Sep, Schizoaffective disorder, depressive type F25.1 [place] [id number] [place] [address] 28807- 1309 Sep, [place] [id number] [place] [address] 44101- 5765 Sep, Paranoid schizophrenia F20.0 [place] [id number] [place] [address] 07411- 8736 Sep, [facility] [id number] [place] [address] 68725- 1806 Sep, Hypothyroidism (acquired) E03.9 [facility] [id number] [place] [address] 96854- 7295 Sep, [place] [id number] [place] [address] 86119- 3976 August, Schizoaffective disorder, depressive type F25.1 [facility] [id number] [place] [address] 51329- 6470 August, [facility] [id number] [place] [address] 92311- 6130 August, [facility] [address] 84522- 9104 August, [place] [address] 95305- 2282 August, Paranoid schizophrenia F20.0 [place] [address] 28028- 0284 August, History of lupus Z87.39 and Chronic pain syndrome G89.4 [place] [address] 49155- 0766 August, [facility] [address] 62096 -8870 August, Seasonal allergic rhinitis, unspecified trigger J30.2 and BMI 45.0-49.9, adult Z68.42 [place] [address] 26171- 8958 Jul, Schizoaffective disorder, depressive type F25.1 [place] [address] 41393- 8193 Jul, [place] [address] 79134- 3302 Jul, Hypothyroidism (acquired) E03.9 [place] [address] 95112- 7963 Jul, Chronic obstructive pulmonary disease, unspecified COPD type J44.9 and Type 2 diabetes mellitus without complication, without long-term current use of insulin E11.9 [place] [id number] [place] [address] 03822- 2876 Jul, Paranoid schizophrenia F20.0 [place] [address] 01433- 3155 Jun, Hypothyroidism (acquired) E03.9 and Seasonal allergic rhinitis due to pollen J30.1 [facility] [id number] [place] [address] 55465 -1199 Jun, Shortness of breath at rest R06.02 ; COPD exacerbation J44.1 and BMI 45.0-49.9, adult Z68.42 [facility] [address] 42564- 6809 Jun, [facility] [address] 71847- 4127 Jun, Paranoid schizophrenia F20.0 ; Depression with anxiety F41.8 and BMI 45.0-49.9, adult Z68.42 [facility] [address] 88575- 8087 Jun, Schizoaffective disorder, depressive type F25.1 [facility] [address] [id number] Jun, Dental caries K02.9 [facility] [address] 67659- 6635 Jun, Paranoid schizophrenia F20.0 [facility] [address] 61853- 3626 May, Migraine without aura and without status migrainosus, not intractable G43.009 ; DM neuro manif type II E11.49 and Type 2 diabetes mellitus without complication, without long-term current use of insulin E11.9 [facility] [id number] [place] [address] 54867- 0233 May, Migraine without aura and without status migrainosus, not intractable G43.009 [facility] [address] 30901- 1038 May, Depression with anxiety F41.8 [facility] [address] [id number] May, [place] [address] [place] [address] 97422- 5909 May, [place] [id number] [place] [address] 30912- 7985 May, [place] [id number] [place] [address] 19128- 0973 May, Hypothyroidism (acquired) E03.9 [place] [address] 58731- 9004 May, Paranoid schizophrenia F20.0 [place] [address] 39938- 8336 May, Type 2 diabetes mellitus without complication, [...] N32.81 and Controlled substance agreement signed Z79.899 [place] [id number] [place] [address] 69600- 4557 May, Controlled substance agreement signed Z79.899 [place] [id number] [place] [address] 20059- 1733 Apr, [facility] [id number] [place] [address] [id number] Apr, Dental examination Z01.20 [place] [id number] [place] [address] 82239- 0778 Apr, Paranoid schizophrenia F20.0 [place] [id number] [place] [address] 57637- 2112 Apr, Hypertension, unspecified type I10 [facility] [id number] [place] [address] 59598- 4963 Apr, Paranoid schizophrenia F20.0 [facility] [id number] [place] [address] 84692- 3278 Apr, [facility] [id number] [place] [address] 85634- 0957 Apr, Tobacco abuse Z72.0 [facility] [id number] [place] [address] 58289- 8085 Apr, [facility] [id number] [place] [address] 19281- 6962 Mar, [facility] [id number] [place] [address] 05007- 5746 Mar, Paranoid schizophrenia F20.0 and BMI 45.0-49.9, adult Z68.42 [facility] [id number] [place] [address] 33747- 0233 Mar, Schizoaffective disorder, depressive type F25.1 [place] [id number] [place] [address] 98190- 7909 Mar, [facility] [id number] [place] [address] 37270- 5305 Mar, Hypothyroidism, unspecified type E03.9 [facility] [id number] [place] [address] 65404- 3450 Mar, Schizoaffective disorder, depressive type F25.1 [facility] [id number] [place] [address] 34652 -3983 Feb, Gastroenteritis K52.9 and BMI 45.0-49.9, adult Z68.42 [facility] [id number] [place] [address] 39754- 8078 Feb, [facility] [id number] [place] [address] 21698- 5722 Feb, [facility] [address] 46555- 3204 Feb, [facility] [address] 43819- 2713 Feb, [place] [address] 66193- 6109 Feb, Paranoid schizophrenia F20.0 [place] [address] 56674- 4606 Feb, Gastroesophageal reflux disease without esophagitis K21.9 ; Other seasonal allergic rhinitis J30.2 ; Other allergic rhinitis J30.89 ; Tobacco abuse Z72.0 and BMI 40.0-44.9, adult Z68.41 [place] [address] 43381- 3832 Feb, Onychomycosis B35.1 ; Callus of foot L84 and DM neuro manif type II E11.49 [place] [address] 93158- 9865 Jan, Chronic allergic rhinitis J30.9 [place] [id number] [place] [address] 91714- 3935 Jan, [place] [id number] [place] [address] 48425- 7601 Jan, Schizoaffective disorder, depressive type F25.1 [place] [id number] [place] [address] 85954- 6125 Jan, [facility] [address] 47724 -6649 Jan, Sore throat J02.9 and Seasonal allergic rhinitis due to other allergic trigger J30.89 [place] [address] 49833- 7286 Jan, [place] [id number] [place] [address] 59012- 3601 Jan, [facility] [id number] [place] [address] 21576 -7984 Jan, Chronic allergic rhinitis J30.9 [facility] [id number] [place] [address] 44178- 9319 Dec, Paranoid schizophrenia F20.0 ; Primary insomnia F51.01 and Schizoaffective disorder, depressive type F25.1 [facility] [id number] [place] [address] 87935- 2947 21 Dec, 2016 Chronic pain syndrome G89.4 ; Cervicalgia of occipito- atlanto-axial region M54.2 ; Menopausal syndrome (hot flashes) N95.1 and Encounter for immunization Z23 [facility] [id number] [place] [address] 19350- 7282 14 Dec, 2016 [facility] [id number] [place] [address] 78007- 0105 Dec, [facility] [id number] [place] [address] 79324- 2712 08 Dec, 2016 Paranoid schizophrenia F20.0 [facility] [id number] [place] [address] 60742- 7899 Dec, Schizoaffective disorder, depressive type F25.1 [facility] [id number] [place] [address] 39311- 4377 Nov, Hypothyroidism, unspecified type E03.9 [facility] [id number] [place] [address] 64517 -5882 Nov, Acute seasonal allergic rhinitis due to other allergen J30.89 [facility] [id number] [place] [address] 88150- 1915 Nov, [facility] [id number] [place] [address] 80416- 3787 Nov, Hypothyroidism, unspecified type E03.9 and Other elevated white blood cell (WBC) count D72.828 [place] [id number] [place] [address] 88156- 3445 Nov, Schizoaffective disorder, depressive type F25.1 [place] [id number] [place] [address] 02057- 5993 Nov, Paranoid schizophrenia F20.0 [place] [address] 82282- 5494 Nov, Type 2 diabetes mellitus without complication, without long- term current use of insulin E11.9 ; Morbid obesity due to excess calories E66.01 and Chronic pain syndrome G89.4 [place] [id number] [place] [address] 12573- 6208 Oct, Paranoid schizophrenia F20.0 [place] [id number] [place] [address] 11264- 3103 Oct, [place] [id number] [place] [address] 91971- 8116 Oct, Schizoaffective disorder, depressive type F25.1 [place] [id number] [place] [address] 19691- 3143 Oct, Hypothyroidism, unspecified type E03.9 and Other elevated white blood cell (WBC) count D72.828 [place] [id number] [place] [address] 07263- 3821 Oct, Morbid obesity due to excess calories E66.01 ; Chronic obstructive pulmonary disease, unspecified COPD type J44.9 ; History of lupus Z87.39 ; Hypothyroidism, unspecified type E03.9 ; Gastroesophageal reflux disease without esophagitis K21.9 ; Primary insomnia F51.01 and Chronic pain syndrome G89.4 [place] [address] [place] [address] 97164- 5419 Sep, [place] [id number] [place] [address] 61807- 6167 Sep, [facility] [address] [address]- 8294 Sep, [facility] [id number] [place] [address] 62356- 4095 Sep, Paranoid schizophrenia F20.0 [facility] [id number] [place] [address] 23293- 8116 Sep, [facility] [id number] [place] [address] 36651- 6200 Sep, Paranoid schizophrenia F20.0 [facility] [id number] [place] [address] 93921- 0198 Sep, [facility] [id number] [place] [address] 12203- 9596 August, Paranoid schizophrenia F20.0 [facility] [id number] [place] [address] 33411- 3455 Jul, [facility] [id number] [place] [address] 27901- 7456 Jul, Type 2 diabetes mellitus without complication, without long- term current use of insulin E11.9 ; Morbid obesity due to excess calories E66.01 ; Depression with anxiety F41.8 ; Hypothyroidism, unspecified type E03.9 ; Seasonal allergic rhinitis due to other allergic trigger J30.89 ; Pain, dental K08.89 and Gastroesophageal reflux disease without esophagitis K21.9 [facility] [address] [address] Jul, Dental examination Z01.20 [facility] [id number] [place] [address] 91338- 2620 Jul, Paranoid schizophrenia F20.0 [facility] [id number] [place] [address] 08100- 7872 Jun, Paranoid schizophrenia F20.0 and Depression with anxiety F41.8 [facility] [id number] [place] [address] 46707- 0950 10 Jun, 2016 Paranoid schizophrenia F20.0 and Depression with anxiety F41.8 [place] [address] 50620- 2481 09 Jun, 2016 [place] [address] 47887- 7963 Jun, [facility] [address] 94187 -7369 Jun, Seasonal allergic rhinitis due to other allergic trigger J30.89 [facility] [address] 91087 -4278 May, Sore throat J02.9 ; Other viral agents as the cause of diseases classified elsewhere B97.89 and Acute upper respiratory infection, unspecified J06.[address] 00042- 3104 08 May, 2016 Paranoid schizophrenia F20.0 and Depression with anxiety F41.8 [place] [id number] [place] [address] 18120- 7997 Apr, Other seasonal allergic rhinitis J30.2 [place] [id number] [place] [address] 12292- 1725 Apr, Paranoid schizophrenia F20.0 and Depression with anxiety F41.8 [facility] [address] [place] [id number] [place] [address] 73901 -4943 Apr, Bronchitis J40 and Sore throat J02.9 [place] [id number] [place] [address] 43121- 3692 Apr, Type 2 diabetes mellitus without complication, without long- term current use of insulin E11.9 [facility] [place] [id number] [place] [address] 57140 -9975 Apr, Bronchitis J40 [address] 66633- 5345 Apr, [place] [id number] [place] [address] 76061- 8454 Apr, [place] [id number] [place] [address] 09493- 6511 Mar, Type 2 diabetes mellitus without complication, [...] R60.9 and Other seasonal allergic rhinitis J30.2 [place] [id number] [place] [address] 51396- 4461 Mar, Paranoid schizophrenia F20.0 and Depression with anxiety F41.8 [place] [address] 03889- 3353 Feb, [place] [id number] [place] [address] 05931- 6513 Feb, [place] [id number] [place] [address] 52674- 6301 Feb, [place] [id number] [place] [address] 45592- 1796 Feb, [place] [address] [place] [id number] [place] [phone] Feb, Type 2 diabetes mellitus without complication, without long- term current use of insulin E11.9 ; ARIAS on CPAP G47.33 and Preoperative evaluation to rule out surgical contraindication Z01.818 [place] [address] [place] [id number] [place] [address] [phone] Feb, Paranoid schizophrenia F20.0 and Depression with anxiety F41.8 [place] [address] [place] [id number] [place] [address] [phone] 18 Jan, 2016 [facility] [address] [id number] [place] [address] 1118 18 Jan, 2016 Paranoid schizophrenia F20.0 and Depression with anxiety F41.8 [facility] [address] [id number] [place] [address] 7867 17 Jan, 2016 [facility] [address] [facility] [id number] [place] [address] 3948 14 Jan, 2016 Muscle strain T14.8 [facility] [address] [id number] [place] [address] 4511 10 Jan, 2016 Paranoid schizophrenia F20.0 [facility] [address] [id number] [place] [address] 6510 07 Jan, 2016 [facility] [address] [id number] [place] [address] 5214 05 Jan, 2016 Paranoid schizophrenia F20.0 and Depression with anxiety F41.8 [facility] [address] [id number] [place] [address] 6885 05 Jan, 2016 [facility] [address] [facility] [id number] [place] [address] 1244 Jan, [facility] [address] [facility] [id number] [place] [address] 4561 28 Dec, 2015 [facility] [address] [id number] [place] [address]- 2000 23 Dec, 2015 Paranoid schizophrenia F20.0 [facility] [address] [id number] [place] [address]- 8310 16 Dec, 2015 Paranoid schizophrenia F20.0 and Depression with anxiety F41.8 [facility] [address] [id number] [place] [address]- 6331 31 Nov, 2015 [facility] [address] [id number] [place] [address]- 0164 24 Nov, 2015 Paranoid schizophrenia F20.0 [facility] [id number] [place] [address]227- 6590 Nov, Paranoid schizophrenia F20.0 and Depression with anxiety F41.8 [place] [id number] [place] [address] 89742- 5552 Nov, Type 2 diabetes mellitus without complication, without long- term current use of insulin E11.9 ; Paranoid schizophrenia F20.0 ; Chronic obstructive pulmonary disease, unspecified COPD type J44.9 ; Morbid obesity due to excess calories E66.01 and Parkinsonian tremor G20 [place] [id number] [place] [address] 15553- 7322 Nov, [place] [id number] [place] [address] 54044- 6876 Oct, Paranoid schizophrenia F20.0 [place] [place] [id number] [place] [address] 79844- 0308 Oct, Paranoid schizophrenia F20.0 [place] [id number] [place] [address] 22047- 9348 Oct, Paranoid schizophrenia F20.0 and Depression with anxiety F41.8 [place] [id number] [place] [address] 26854- 3703 Oct, [place] [id number] [place] [address] 41255- 4946 Oct, Paranoid schizophrenia F20.0 and Depression with anxiety F41.8 [place] [id number] [place] [address] 06376- 2754 Oct, Nasal sore J34.89 [place] [id number] [place] [address] 70329- 5305 Oct, Type 2 diabetes mellitus without complication, without long- term current use of insulin E11.9 ; Depression with anxiety F41.8 ; Hypothyroidism, unspecified type E03.9 and History of lupus Z87.39 [place] [id number] [place] [address] 40479- 2546 Oct, [facility] [address] [address]- 7346 Oct, Type 2 diabetes mellitus without complication, [...] edema R60.9 and History of lupus Z87.39 [facility] [id number] [place] [address] 10769- 6106 Feb, [facility] [id number] [place] [address] 37543- 7156 Jan, [facility] [id number] [place] [address] 07150- 4606 Jan, [facility] [id number] [place] [address] 97014- 7646 Jan, [facility] [address] [id number] [address]- 2546 Dec, [facility] [id number] [place] [address] 15579- 2546 Nov, [facility] [id number] [address]- 2546 Nov, [facility] [id number] [place] [address] 34266- 2116 Oct, [facility] [address] [id number] [address]- 2546 Oct, [facility] [id number] [place] [address] 86513- 7136 Oct, [facility] [address] [id number] [place] [address]- 5061 Sep, Allergic rhinitis 477.9 [facility] [address] [id number] [place] [address] 5606 Sep, Rhinitis, allergic 477.9 [facility] [address] [id number] [place] [address]- 0339 Sep, Rhinitis, allergic 477.9 [facility] [address] [id number] [place] [address]- 3418 Sep, [facility] [address] [id number] [place] [address]- 1365 August, [facility] [address] [id number] [place] [address]- 5707 August, [facility] [address] [id number] [place] [address]- 1437 August, [facility] [address] [id number] [place] [address]- 6471 Jul, [facility] [address] [id number] [place] [address]- 6297 14 Jul, 2014 [facility] [address] [id number] [place] [address]- 5442 Jul, [facility] [address] [id number] [place] [address]- 3578 16 Jun, 2014 [facility] [address] [id number] [place] [address]- 8238 16 Jun, 2014 [facility] [address] [id number] [place] [address]- 2512 Jun, [facility] [address] [id number] [place] [address]- 0313 Jun, [facility] [address] [id number] [place] [address]- 4358 Jun, [facility] [place] [facility] [address] [id number] [place] [address]- 2260 Jun, 2014 [facility] [place] [facility] [address] [id number] [place] [address]- 5268 Jun, 2014 [facility] [place] [facility] [address] [id number] [place] [address]- 3628 Jun, 2014 [facility] [place] [facility] [address] [id number] [place] [address]- 2349 May, 2014 [facility] [place] [facility] [address] [id number] [place] [address]- 2800 May, 2014 [facility] [place] [facility] [address] [id number] [place] [address]- 3634 May, 2014 [facility] [place] [facility] [address] [id number] [place] [address]- 1966 May, 2014 [facility] [place] [facility] [address] [id number] [place] [address]- 5049 Apr, [facility] [place] [facility] [address] [id number] [place] [address]- 0786 Mar, [facility] [place] [facility] [address] [id number] [place] [address]- 9204 Mar, [facility] [place] [facility] [address] [facility] [id number] [place] [address]- 8578 Mar, [facility] [place] [facility] [address] [id number] [place] [address]- 6285 Mar, [facility] [place] [facility] [address] [id number] [place] [address]- 7557 Mar, [facility] [place] [facility] [address] [id number] [place] [address]- 1958 Mar, [facility] [place] [facility] [address] [id number] [place] 0812 Mar, [facility] [place] [facility] [address] [id number] [address]- 7057 Mar, [facility] [place] [facility] [address] [id number] [place] [address]- 7985 Mar, [facility] [place] [facility] [address] [id number] [place] [address]- 7267 Feb, [facility] [place] [facility] [address] [id number] [place] [address]- 3249 Feb, [facility] [place] [facility] [address] [id number] [place] [address]- 2677 Feb, [facility] [place] [facility] [address] [id number] [place] [address]- 8896 Feb, [facility] [place] [facility] [address] [id number] [place] [address]- 8681 Feb, [facility] [place] [facility] [address] [id number] [place] [address]- 6373 Feb, [facility] [place] [facility] [address] [id number] [place] [address]- 9557 Feb, [facility] [place] [facility] [address] [id number] [place] [address]- 3037 Feb, [facility] [place] [facility] [address] [facility] [id number] [place] [address]- 5475 Jan, [facility] [place] [facility] [address] [id number] [address]- 2675 Jan, [facility] [place] [facility] [address] [id number] [place] [address]- 5573 16 Jan, 2014 [facility] [place] [facility] [address] [id number] [place] [address]- 5116 16 Jan, 2014 [facility] [place] [facility] [address] [id number] [place] [address]- 4000 15 Jan, 2014 [facility] [place] [facility] [address] [facility] [id number] [place] [address]- 2003 15 Jan, 2014 [facility] [place] [facility] [address] [id number] [place] [address]- 4127 14 Jan, 2013 [facility] [place] [facility] [address] [id number] [place] [address]- 9203 14 Jan, 2014 [facility] [place] [facility] [address] [id number] [place] [address]- 7566 14 Jan, 2014 [facility] [place] [facility] [address] [id number] [place] [address]- 2897 14 Jan, 2014 [facility] [place] [facility] [address] [id number] [place] [address]- 8443 18 Dec, 2013 [facility] [place] [facility] [address] [id number] [place] [address]- 0555 18 Dec, 2013 [facility] [place] [facility] [address] [id number] [place] [address]- 3755 10 Dec, 2013 [facility] [place] [facility] [address] [id number] [place] [address]- 5497 10 Dec, 2013 [facility] [place] [facility] [address] [id number] [place] [address]- 5725 Nov, [facility] [place] [facility] [address] [id number] [place] [address]- 5922 Nov, [facility] [place] [facility] [address] [id number] [place] [address]- 3778 Nov, [facility] [place] [facility] [address] [id number] [place] [address]- 0403 Nov, [facility] [place] [facility] [address] [id number] [place] [address]- 2357 Nov, [facility] [place] [facility] [address] [id number] [place] [address]- 7714 Oct, [facility] [place] [facility] [address] [id number] [place] [address]- 6596 Oct, [facility] [place] [facility] [address] [id number] [place] [address]- 4990 Oct, [facility] [place] [facility] [address] [id number] [place] [address]- 0017 Oct, [facility] [place] [facility] [address] [id number] [place] [address]- 6958 Sep, [facility] [place] [facility] [address] [id number] [place] [address]- 2715 Sep, [facility] [place] [facility] [address] [id number] [place] [address]- 0800 Sep, [facility] [place] [facility] [address] [id number] [place] [address]- 0010 Sep, [facility] [place] [facility] [address] [id number] [place] [address]- 8499 Sep, [facility] [place] [facility] [address] [id number] [place] [address]- 2313 Sep, [facility] [place] [facility] [address] [id number] [place] [address]- 2082 Sep, [facility] [place] [facility] [address] [id number] [place] [address]- 2426 Sep, [facility] [place] [facility] [address] [id number] [place] [address]- 8827 August, [facility] [place] [facility] [address] [id number] [place] [address]- 1439 August, [facility] [place] [facility] [address] [id number] [place] [address]- 6771 August, [facility] [place] [facility] [address] [id number] [place] [address]- 0195 August, [facility] [place] [facility] [address] [id number] [place] [address]- 6646 August, [facility] [place] [facility] [address] [id number] [place] [address]- 5883 August, [facility] [place] [facility] [address] [id number] [place] [address]- 6580 August, [facility] [place] [facility] [address] [id number] [place] [address]- 1113 Jul, [facility] [place] [facility] [address] [id number] [place] [address]- 2637 Jul, [facility] [place] [facility] [address] [id number] [place] [address]- 5867 Jul, [facility] [place] [facility] [address] [id number] [place] [address]- 4917 Jul, [facility] [place] [facility] [address] [id number] [place] [address]- 8783 Jul, [facility] [place] [facility] [address] [id number] [place] [address]- 9591 Jul, [facility] [place] [facility] [address] [id number] [place] [address]- 7455 Jul, [facility] [place] [facility] [address] [id number] [place] [address]- 6051 Jul, [facility] [place] [facility] [address] [id number] [place] [address]- 8939 Jul, [facility] [place] [facility] [address] [id number] [place] [address]- 4575 Jul, [facility] [place] [facility] [address] [id number] [place] [address]- 5429 Jul, [facility] [place] [facility] [address] [id number] [place] [address]- 0324 Jul, [facility] [place] [facility] [address] [id number] [place] 2655 Jun, [facility] [place] [facility] [address] [id number] [place] [address]- 7998 Jun, [facility] [place] [facility] [address] [id number] [place] 9554 Jun, [facility] [place] [facility] [address] [id number] [place] [address]- 0707 Jun, [facility] [place] [facility] [address] [id number] [place] [address]- 4384 Jun, [facility] [place] [facility] [address] [id number] [place] [address]- 9734 May, [facility] [place] [facility] [address] [id number] [place] [address]- 2214 May, [facility] [place] [facility] [address] [id number] [place] [address]- 7436 May, [facility] [place] [facility] [address] [id number] [place] [address]- 2115 May, [facility] [place] [facility] [address] [id number] [place] [address]- 0656 May, [facility] [place] [facility] [address] [id number] [place] [address]- 9428 May, [facility] [place] [facility] [address] [id number] [place] [address]- 8485 May, [facility] [place] [facility] [address] [facility] [id number] [place] [address]- 2738 May, [facility] [place] [facility] [address] [id number] [place] [address]- 4844 Mar, [facility] [place] [facility] [address] [id number] [place] [address]- 5919 Mar, [facility] [place] [facility] [address] [id number] [place] [address]- 0985 Mar, [facility] [place] [facility] [address] [id number] [place] [address]- 7943 Mar, [facility] [place] [facility] [address] [facility] [id number] [place] [address]- 7886 Mar, [facility] [place] [facility] [address] [id number] [place] [address]- 8190 02 Mar, 2013 [facility] [address] [id number] [place] [address]- 0186 Feb, [facility] [place] [facility] [address] [id number] [place] [address]- 5585 Feb, [facility] [place] [facility] [address] [id number] [place] [address]- 1543 Jan, [facility] [place] [facility] [address] [id number] [place] [address]- 8604 Jan, [facility] [place] [facility] [address] [id number] [place] 6234 Jan, [facility] [place] [facility] [address] [id number] [place] [address]- 7551 Jan, [facility] [place] [facility] [address] [id number] [place] [address]- 5212 Jan, [facility] [place] [facility] [address] [id number] [place] [address]- 1052 Jan, [facility] [place] [facility] [address] [id number] [place] [address]- 0487 Jan, [facility] [place] [facility] [address] [id number] [place] [address]- 6004 Jan, [facility] [place] [facility] [address] [id number] [place] [address]- 7449 Jan, [facility] [place] [facility] [address] [id number] [place] [address]- 3421 Jan, [facility] [place] [facility] [address] [id number] [place] [address]- 7721 16 Dec, 2012 [facility] [place] [facility] [address] [id number] [place] [address]- 7703 Nov, [facility] [place] [facility] [address] [id number] [place] [address]- 6540 Nov, [facility] [id number] [address]- 2827 Nov, [facility] [id number] [address] 5928 Oct, [facility] [id number] [address]- 8954 Oct, [facility] [id number] [address]- 5982 August, [facility] [address] [facility] [id number] [place] [address]- 8393 Apr, [facility] [id number] [address]- 5308 Apr, [facility] [id number] [address]- 9337 Feb, [facility] [id number] [address]- 1814 Feb, [facility] [id number] [address]- 7437 Dec, [facility] [id number] [address]- 0001 Dec, [facility] [id number] [address]- 0402 Oct, [facility] [id number] [address]- 2491 Oct, [facility] [address] [id number] [address]- 1844 Oct, [facility] [address] [address]- 1846 Jul, IMMUNIZATIONS No Known Immunizations SOCIAL HISTORY [...] illness , last one in [facility] 4 years ago
--- OUTSIDE RECORDS SUMMARY | 2018-09-02 13:21 | XMS REPORT ---
Author Author EDWINUMESH CASIANO Organization [facility] [address] Address [address] [place] [address] Care Team Providers Care Transportation Officer Name Role Phone UMESH PINEDA Unavailable PROBLEMS Type Condition ICD9-CM Code COT39-SD Code Onset Dates Condition Status SNOMED Code Problem OAB (overactive bladder) N32.81 Active 334917159 Problem Depression with anxiety F41.8 Active 057780583 Problem Other seasonal allergic rhinitis J30.2 Active 644950541 Problem Chronic obstructive pulmonary disease, unspecified COPD type J44.9 Active 92842272 Problem Tobacco abuse Z72.0 Active 314859284 Problem Morbid obesity due to excess calories E66.01 Active 199718109 Problem Dyslipidemia E78.5 Active 371575546 Problem Hypothyroidism (acquired) E03.9 Active 646674775 Problem Essential hypertension I10 Active 26357355 Problem Diabetic polyneuropathy associated with type 2 diabetes mellitus E11.42 Active 422828932 Problem Type 2 diabetes mellitus with diabetic neuropathic arthropathy, 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 Active 230593306 Problem Type 2 diabetes mellitus without complication, without long-term current use of insulin E11.9 Active 463715199 Problem Paranoid schizophrenia F20.0 Active 75383541 Problem Chronic pain syndrome G89.4 Active 656262278 Problem Migraine without aura and without status migrainosus, not intractable G43.009 Active 799326635 Problem Gastroesophageal reflux disease, esophagitis presence not specified K21.9 Active 598893712 Problem Seasonal allergic rhinitis due to pollen J30.1 Active 52326714 Problem COPD exacerbation J44.1 Active 720337499 Problem Seasonal allergic rhinitis due to other allergic trigger J30.89 Active 934030023 Problem Schizoaffective disorder, depressive type F25.1 Active 61419023 Problem History of lupus Z87.39 Active 059267268 Problem Gastroesophageal reflux disease without esophagitis K21.9 Active 815104857 Problem Menopausal syndrome (hot flashes) N95.1 Active 670536962 Problem Other allergic rhinitis J30.89 Active 959342464 Problem Primary insomnia F51.01 Active 7703690 Problem DM neuro manif type II E11.49 Active 74201550 ALLERGIES No Information ENCOUNTERS Encounter Location Date Diagnosis [facility], [place] [id number] [place] [address] 00225- 6574 Jan, [facility], [place] [id number] [place] [address] 09112- 3688 Jan, [facility], [place] [id number] [place] [address] 00247- 1284 Jan, [facility], [place] [id number] [place] [address] 04600- 5982 Jan, [facility], [place] [id number] [place] [address] 70010- 4367 Jan, [facility], [place] [id number] [place] [address] 28402- 7425 27 Dec, 2017 [facility], [place] [id number] [place] [address] 33200- 8317 21 Dec, 2017 Schizoaffective disorder, depressive type F25.1 and BMI 45.0 -49.9, adult Z68.42 [place] [id number] [place] [address] 66909- 8625 Dec, [facility], [place] [id number] [place] [address] 05603- 0385 Dec, [facility], [place] [id number] [place] [address] 72515- 9814 18 Dec, 2017 Acute non-recurrent frontal sinusitis J01.10 [place] [id number] [place] [address] 01130- 1193 18 Dec, 2017 Acute non-recurrent frontal sinusitis J01.10 ; Weakness of left leg R29.898 ; At high risk for falls Z91.81 and BMI 45.0-49.9, adult Z68.42 [place] [id number] [address]- 1752 Dec, [facility], [place] [id number] [place] [address] 65232- 4492 Dec, [facility], [place] [id number] [place] [address] 53526- 4107 Dec, Schizoaffective disorder, depressive type F25.1 [facility] [id number] [place] [address] 51177 -4518 Dec, Acute nasopharyngitis J00 [facility], [place] [id number] [place] [address] 89423- 1789 Dec, Schizoaffective disorder, depressive type F25.1 [facility], [place] [id number] [place] [address] 53587- 7210 Dec, [facility], [place] [id number] [place] [address] 46637- 2263 Nov, Schizoaffective disorder, depressive type F25.1 and BMI 45.0 -49.9, adult Z68.42 [place] [id number] [place] [address] 96420- 7556 Nov, [facility], [place] [id number] [place] [address] 15123- 2519 Nov, [place] [id number] [place] [address] 52829- 4845 Nov, Schizoaffective disorder, depressive type F25.1 [facility], [place] [address] [place] [address] 83475- 6225 Nov, Well woman exam Z01.419 ; BMI 45.0-49.9, adult Z68.42 ; Screening breast examination Z12.31 and Dietary counseling and surveillance Z71.3 [facility], [place] [id number] [place] [address] 49534- 1077 Nov, Paranoid schizophrenia F20.0 [place] [address] [address]- 7267 Nov, Gastroesophageal reflux disease, esophagitis presence not specified K21.9 [place] [id number] [place] [address] 53326- 6841 Oct, Paranoid schizophrenia F20.0 [facility] [place] [id number] [place] [address] Oct Chronic pain syndrome G89.4 and Schizoaffective disorder, depressive type F25.1 [place] [id number] [place] [address] 31269- 6251 Oct, Chronic pain syndrome G89.4 and Schizoaffective disorder, depressive type F25.1 [place] [address] [place] [address] 78848- 2681 Oct, Type 2 diabetes mellitus without complication, without long- term current use of insulin E11.9 [place] [id number] [place] [address] 86294- 3744 Oct, Essential hypertension I10 and DM neuro manif type II E11.49 [place] [id number] [place] [address] 81349- 8922 Oct, [place] [address] [place] [address] 60653- 6503 Oct, Schizoaffective disorder, depressive type F25.1 and BMI 45.0 -49.9, adult Z68.42 [place] [address] [place] [address] 91861- 9110 Oct, [place] [id number] [place] [address] 82390- 2594 Oct, Paranoid schizophrenia F20.0 [place] [address] [place] [address] 19709- 6263 Oct, Type 2 diabetes mellitus with diabetic neuropathic arthropathy, 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 ; Essential hypertension I10 ; Hypothyroidism (acquired) E03.9 ; Chronic obstructive pulmonary disease, unspecified COPD type J44.9 and Diabetic polyneuropathy associated with type 2 diabetes mellitus E11.42 [facility], [place] [id number] [place] [address] 69018- 1752 Sep, Paranoid schizophrenia F20.0 [facility], [place] [id number] [place] [address] 84700- 0753 Sep, Paranoid schizophrenia F20.0 and BMI 45.0-49.9, adult Z68.42 [facility], [place] [address] 32220- 5459 Sep, Schizoaffective disorder, depressive type F25.1 [facility], [place] [id number] [place] [address] 20215- 9162 Sep, [facility], [place] [id number] [place] [address] 90838- 6113 Sep, Paranoid schizophrenia F20.0 [facility], [place] [id number] [place] [address] 16392- 3690 Sep, [facility], [place] [address] 39302- 9593 Sep, Hypothyroidism (acquired) E03.9 [facility], [place] [id number] [place] [address] 99919- 3850 Sep, [facility], [place] [id number] [place] [address] 80352- 4873 August, Schizoaffective disorder, depressive type F25.1 [facility], [place] [id number] [place] [address] 89701- 1488 August, [facility], [place] [id number] [place] [address] 43674- 1282 August, [facility], [place] [id number] [place] [address] 73176- 7162 August, [facility], [place] [address] 30853- 8892 August, Paranoid schizophrenia F20.0 [place] [address] 84329- 0951 August, History of lupus Z87.39 and Chronic pain syndrome G89.4 [place] [address] 40585- 1568 August, [facility] [place] [address] 61668 -7969 August, Seasonal allergic rhinitis, unspecified trigger J30.2 and BMI 45.0-49.9, adult Z68.[address] 66151- 6552 Jul, Schizoaffective disorder, depressive type F25.[address] 19049- 0733 Jul, [place] [address] 51536- 1384 Jul, Hypothyroidism (acquired) E03.[address] 46708- 5000 Jul, Chronic obstructive pulmonary disease, unspecified COPD type J44.9 and Type 2 diabetes mellitus without complication, without long-term current use of insulin E11.[address] 69523- 4764 Jul, Paranoid schizophrenia F20.0 [place] [address] 41391- 8090 Jun, Hypothyroidism (acquired) E03.9 and Seasonal allergic rhinitis due to pollen J30.1 [facility] [place] [address] 32615 -5798 Jun, Shortness of breath at rest R06.02 ; COPD exacerbation J44.1 and BMI 45.0-49.9, adult Z68.42 [place] [address] [place] [address] 22499- 8118 Jun, [facility], [place] [id number] [place] [address] 14990- 1609 Jun, Paranoid schizophrenia F20.0 ; Depression with anxiety F41.8 and BMI 45.0-49.9, adult Z68.42 [facility], [place] [id number] [place] [address] 81584- 6549 Jun, Schizoaffective disorder, depressive type F25.1 [facility] [id number] [place] [address] [id number] Jun, Dental caries K02.9 [facility], [place] [id number] [place] [address] 12354- 7328 Jun, Paranoid schizophrenia F20.0 [facility], [place] [id number] [place] [address] 92794- 3212 May, Migraine without aura and without status migrainosus, not intractable G43.009 ; DM neuro manif type II E11.49 and Type 2 diabetes mellitus without complication, without long-term current use of insulin E11.9 [facility], [place] [id number] [place] [address] 24044- 6468 May, Migraine without aura and without status migrainosus, not intractable G43.009 [facility], [place] [id number] [place] [address] 99407- 8470 May, Depression with anxiety F41.8 [facility] [address] [place] [address] [id number] May, [facility], [place] [id number] [place] [address] 27629- 6502 May, [facility], [place] [id number] [place] [address] 46745- 8117 May, [facility], [place] [id number] [place] [address] 58218- 5113 May, Hypothyroidism (acquired) E03.9 [facility], [place] [address] 76647- 9546 May, Paranoid schizophrenia F20.0 [place] [address] 32161- 6052 08 May, 2017 Type 2 diabetes mellitus [...] N32.81 and Controlled substance agreement signed Z79.899 [place] [address] 21106- 9664 May, Controlled substance agreement signed Z79.899 [place] [address] 93602- 0445 Apr, [facility] [address] [id number] Apr, Dental examination Z01.20 [place] [address] 14385- 3779 Apr, Paranoid schizophrenia F20.0 [place] [address] 00439- 1835 Apr, Hypertension, unspecified type I10 [place] [address] 77843- 4963 Apr, Paranoid schizophrenia F20.0 [place] [address] 92512- 5781 Apr, [facility], [place] [id number] [place] [address] 82354- 9589 Apr, Tobacco abuse Z72.0 [facility], [place] [id number] [place] [address] 25808- 7085 Apr, [facility], [place] [id number] [place] [address] 80255- 7398 Mar, [facility], [place] [address] 23686- 2619 Mar, Paranoid schizophrenia F20.0 and BMI 45.0-49.9, adult Z68.42 [facility], [place] [id number] [place] [address] 50869- 2778 Mar, Schizoaffective disorder, depressive type F25.1 [facility], [place] [id number] [place] [address] 38134- 1200 Mar, [facility], [place] [id number] [place] [address] 55909- 6592 Mar, Hypothyroidism, unspecified type E03.9 [facility], [place] [id number] [place] [address] 21713- 9620 Mar, Schizoaffective disorder, depressive type F25.1 [facility] [id number] [place] [address] 62322 -9850 Feb, Gastroenteritis K52.9 and BMI 45.0-49.9, adult Z68.42 [facility], [place] [id number] [place] [address] 37850- 9958 Feb, [facility], [place] [id number] [place] [address] 89385- 3995 Feb, [facility], [place] [id number] [place] [address] 45919- 9924 Feb, [facility], [place] [id number] [place] [address] 46442- 7777 Feb, [place] [id number] [place] [address] 69212- 1049 Feb, Paranoid schizophrenia F20.[address] 67147- 9450 Feb, Gastroesophageal reflux disease without esophagitis K21.9 ; Other seasonal allergic rhinitis J30.2 ; Other allergic rhinitis J30.89 ; Tobacco abuse Z72.0 and BMI 40.0-44.9, adult Z68.[address] 09614- 7100 Feb, Onychomycosis B35.1 ; Callus of foot L84 and DM neuro manif type II E11.[address] 64024- 0684 Jan, Chronic allergic rhinitis J30.[address] 89781- 2036 Jan, [address] 83800- 4221 Jan, Schizoaffective disorder, depressive type F25.[address] 09561- 2867 Jan, [facility] [address] [place] [address] 24684 -8060 Jan, Sore throat J02.9 and Seasonal allergic rhinitis due to other allergic trigger J30.89 [place] [id number] [place] [address] 65103- 6781 Jan, [address] 63017- 9184 Jan, [facility] [address] [place] [address] 37629 -5042 Jan, Chronic allergic rhinitis J30.[address] 10541- 8411 Dec, Paranoid schizophrenia F20.0 ; Primary insomnia F51.01 and Schizoaffective disorder, depressive type F25.1 [facility], [place] [id number] [place] [address] 64532- 8476 Dec, Chronic pain syndrome G89.4 ; Cervicalgia of occipito- atlanto-axial region M54.2 ; Menopausal syndrome (hot flashes) N95.1 and Encounter for immunization Z23 [facility], [place] [address] 85879- 7531 14 Dec, 2016 [facility], [place] [address] 76255- 6649 13 Dec, 2016 [place] [address] 96667- 8139 08 Dec, 2016 Paranoid schizophrenia F20.0 [place] [id number] [place] [address] 64381- 4398 Dec, Schizoaffective disorder, depressive type F25.1 [facility] [place] [id number] [place] [address] 85446- 2318 Nov, Hypothyroidism, unspecified type E03.9 [facility] [id number] [place] [address] 16784 -0858 Nov, Acute seasonal allergic rhinitis due to other allergen J30.89 [facility] [place] [id number] [place] [address] 85516- 3371 Nov, [facility], [place] [id number] [place] [address] 31622- 0660 Nov, Hypothyroidism, unspecified type E03.9 and Other elevated white blood cell (WBC) count D72.828 [place] [id number] [place] [address] 17356- 0023 Nov, Schizoaffective disorder, depressive type F25.1 [facility] [place] [id number] [place] [address] 82398- 3305 Nov, Paranoid schizophrenia F20.0 [place] [address] [address]- 6654 Nov, Type 2 diabetes mellitus without complication, without long- term current use of insulin E11.9 ; Morbid obesity due to excess calories E66.01 and Chronic pain syndrome G89.4 [place] [address] [place] [address] 72807- 3828 Oct, Paranoid schizophrenia F20.0 [place] [address] [place] [address] 21194- 8348 Oct, [place] [id number] [place] [address] 71217- 0939 Oct, Schizoaffective disorder, depressive type F25.1 [place] [address] [place] [address] 31112- 4902 Oct, Hypothyroidism, unspecified type E03.9 and Other elevated white blood cell (WBC) count D72.828 [place] [address] [place] [address] 04665- 0926 Oct, Morbid obesity due to excess calories E66.01 ; Chronic obstructive pulmonary disease, unspecified COPD type J44.9 ; History of lupus Z87.39 ; Hypothyroidism, unspecified type E03.9 ; Gastroesophageal reflux disease without esophagitis K21.9 ; Primary insomnia F51.01 and Chronic pain syndrome G89.4 [place] [address] [address]- 9243 Sep, [place] [address] [address]- 9392 Sep, [place] [address] [address]- 0686 Sep, [place] [address] [address]- 8267 Sep, Paranoid schizophrenia F20.0 [place] [id number] [address]- 9601 Sep, [facility] [place] [address] [place] [address] 83163- 3342 Sep, Paranoid schizophrenia F20.0 [facility] [place] [address] [place] [address] 56719- 3501 Sep, [facility] [place] [address] [id number] [place] [address] 53890- 1019 August, Paranoid schizophrenia F20.0 [facility] [place] [address] [place] [address] 76881- 5494 Jul, [facility] [place] [address] [place] [id number] [place] [address] 77750- 3595 Jul, Type 2 diabetes mellitus without complication, without long- term current use of insulin E11.9 ; Morbid obesity due to excess calories E66.01 ; Depression with anxiety F41.8 ; Hypothyroidism, unspecified type E03.9 ; Seasonal allergic rhinitis due to other allergic trigger J30.89 ; Pain, dental K08.89 and Gastroesophageal reflux disease without esophagitis K21.9 [facility] [id number] [place] [address] [id number] Jul, Dental examination Z01.20 [facility] [place] [address] [place] [address] 66530- 2463 07 Jul, 2016 Paranoid schizophrenia F20.0 [facility] [place] [address] [place] [address] 20301- 9088 13 Jun, 2016 Paranoid schizophrenia F20.0 and Depression with anxiety F41.8 [facility], [place] [id number] [place] [address] [phone]- [phone] 10 Jun, 2016 Paranoid schizophrenia F20.0 and Depression with anxiety F41.8 [facility], [place] [id number] [place] [address] [phone] 09 Jun, 2016 [facility], [place] [address] [place] [id number] [place] [address] [phone]- [phone] 08 Jun, 2016 [facility] [id number] [place] [address] [phone] -[phone] 08 Jun, 2016 Seasonal allergic rhinitis due to other allergic trigger J30.89 [facility] [address] [place] [id number] [place] [address] [phone] 25 May, 2016 Sore throat J02.9 ; Other viral agents as the cause of diseases classified elsewhere B97.89 and Acute upper respiratory infection, unspecified J06.9 [place] [address] [place] [id number] [place] [address] [phone]- [phone] 08 May, 2016 Paranoid schizophrenia F20.0 and Depression with anxiety F41.8 [place] [address] [place] [id number] [place] [address] [phone]- [phone] Apr, Other seasonal allergic rhinitis J30.2 [place] [address] [place] [id number] [place] [address] [phone] Apr, Paranoid schizophrenia F20.0 and Depression with anxiety F41.8 [facility] [place] [id number] [place] [id number] [place] [address] [phone] Apr, Bronchitis J40 and Sore throat J02.9 [place] [address] [place] [id number] [place] [address] [phone] Apr, Type 2 diabetes mellitus without complication, without long- term current use of insulin E11.9 [facility] [place] [address] [place] [id number] [place] [address] [phone] Apr, Bronchitis J40 [place] [address] [place] [id number] [place] [address] [phone] Apr, [place] [address] [place] [id number] [place] [address] [phone] Apr, [place] [id number] [place] [address] [phone] Mar, Type 2 diabetes mellitus without complication, [...] R60.9 and Other seasonal allergic rhinitis J30.2 [place] [address] [address]- 1250 Mar, Paranoid schizophrenia F20.0 and Depression with anxiety F41.8 [place] [address] [place] [id number] [place] [address] 60691- 2964 Feb, [place] [address] 40355- 3660 Feb, [place] [address] 78323- 6679 Feb, [place] [address] 38061- 2817 Feb, [place] [address] 60478- 8134 Feb, Type 2 diabetes mellitus without complication, without long- term current use of insulin E11.9 ; ARIAS on CPAP G47.33 and Preoperative evaluation to rule out surgical contraindication Z01.818 [place] [address] [place] [id number] [place] [address] 30883- 3572 Feb, Paranoid schizophrenia F20.0 and Depression with anxiety F41.8 [place] [address] [place] [id number] [place] [address] 56350- 5851 Jan, [place] [address] 68803- 9411 Jan, Paranoid schizophrenia F20.0 and Depression with anxiety F41.8 [place] [address] 77795- 1102 Jan, [place] [address] [address] 2448 14 Jan, 2016 Muscle strain T14.8 [facility] [place] [address] [id number] [address] 8917 Jan, Paranoid schizophrenia F20.0 [facility], [place] [address] [address] 5267 Jan, [facility] [place] [address] [place] [id number] [place] [address] 30963- 7766 Jan, Paranoid schizophrenia F20.0 and Depression with anxiety F41.8 [facility], [place] [id number] [place] [address] 00668- 6021 Jan, [facility], [place] [id number] [place] [address] 28132- 9871 Jan, [facility], [place] [address] [place] [id number] [place] [address] 46758- 8609 28 Dec, 2015 [facility], [place] [address], [place] [address]- 4180 23 Dec, 2015 Paranoid schizophrenia F20.0 [facility], [place] [id number] [place] [address] 03263- 9579 16 Dec, 2015 Paranoid schizophrenia F20.0 and Depression with anxiety F41.8 [facility], [place] [address] [address]- 8802 Nov, [facility], [place] [address], [place] [address]- 2141 Nov, Paranoid schizophrenia F20.0 [facility], [place] [address], [place] [address]- 1253 Nov, Paranoid schizophrenia F20.0 and Depression with anxiety F41.8 [facility] [place] [address] [address]- 9455 Nov, Type 2 diabetes mellitus without complication, without long- term current use of insulin E11.9 ; Paranoid schizophrenia F20.0 ; Chronic obstructive pulmonary disease, unspecified COPD type J44.9 ; Morbid obesity due to excess calories E66.01 and Parkinsonian tremor G20 [place] [address] [place] [id number] [place] [address] 60576- 7091 Nov, [place] [address] [place] [id number] [place] [address] 15238- 1513 Oct, Paranoid schizophrenia F20.0 [place] [address] [place] [id number] [place] [address] 13523- 2000 Oct, Paranoid schizophrenia F20.0 [place] [address] [place] [id number] [place] [address] 53465- 0978 Oct, Paranoid schizophrenia F20.0 and Depression with anxiety F41.8 [place] [address] [place] [id number] [place] [address] 22513- 1451 Oct, [place] [address] [place] [id number] [place] [address] 92038- 2171 Oct, Paranoid schizophrenia F20.0 and Depression with anxiety F41.8 [place] [address] [place] [id number] [place] [address] 98903- 4421 Oct, Nasal sore J34.89 [place] [address] [place] [id number] [place] [address] 87816- 4469 Oct, Type 2 diabetes mellitus without complication, without long- term current use of insulin E11.9 ; Depression with anxiety F41.8 ; Hypothyroidism, unspecified type E03.9 and History of lupus Z87.39 [place] [address] [place] [address] 63177- 2925 Oct, [place] [address] [place] [id number] [place] [address] 20035- 5827 Oct, Type 2 diabetes mellitus without complication, [...] edema R60.9 and History of lupus Z87.39 [facility], [place] [address] [place] [id number] [place] [address] 990121- 2906 Feb, [facility], [place] [address] [place] [id number] [place] [address] [id number]- 2185 Jan, [facility], [place] [address] [place] [id number] [place] [address] [id number]- 5676 Jan, [facility], [place] [address] [place] [id number] [place] [address] 90818- 2679 Jan, [facility], [place] [address] [place] [id number] [place] [address] 18918- 5085 Dec, [facility], [place] [address] [place] [id number] [place] [address] 497088- 0023 Nov, [facility], [place] [address] [place] [id number] [place] [address] [id number]- 7637 Nov, [facility], [place] [address] [place] [id number] [place] [address] 75974- 3663 Oct, [facility], [place] [address] [place] [id number] [place] [address] 51525- 4346 Oct, [facility], [place] [address] [place] [id number] [place] [address] [id number]- 3057 Oct, [facility], [place] [address] [place] [id number] [place] [address] 425412- 4407 Sep, Allergic rhinitis 477.9 [facility], [place] [address] [place] [id number] [place] [address] 55060- 8445 Sep, Rhinitis, allergic 477.9 [facility], [place] [address] [place] [address]- 8066 10 Sep, 2014 Rhinitis, allergic 477.9 [facility] [place] [facility] [address] [id number] [place] [address]- 2026 Sep, [facility] [place] [facility] [address] [id number] [place] [address]- 4246 August, [facility] [place] [facility] [address] [id number] [place] [address]- 4675 August, [facility] [place] [facility] [address] [id number] [place] [address]- 3868 August, [facility] [place] [facility] [address] [id number] [place] [address]- 0086 28 Jul, 2014 [facility] [place] [facility] [address] [facility] [id number] [place] [address]- 5870 14 Jul, 2014 [facility] [place] [facility] [address] [facility] [id number] [place] [address]- 8044 Jul, [facility] [place] [facility] [address] [id number] [place] [address]- 1313 16 Jun, 2014 [facility] [place] [facility] [address] [id number] [place] [address]- 4322 16 Jun, 2014 [facility] [place] [facility] [address] [facility] [id number] [place] [address]- 6046 Jun, [facility] [place] [facility] [address] [facility] [id number] [place] [address]- 8229 Jun, [facility] [place] [facility] [address] [id number] [place] [address]- 6986 Jun, [facility] [place] [facility] [address] [id number] [place] [address]- 1400 Jun, [facility] [place] [facility] [address] [facility] [id number] [place] [address]- 0476 02 Jun, 2014 [facility] [place] [facility] [address] [facility] [id number] [place] [address]- 6930 Jun, [facility] [place] [facility] [address] [id number] [place] 8853 May, [facility] [place] [facility] [address] [id number] [place] [address]- 6876 May, [facility] [place] [facility] [address] [id number] [place] [address]- 2476 May, [facility] [place] [facility] [address] [id number] [place] [address]- 8009 May, 2014 [facility] [place] [facility] [address] [id number] [place] [address]- 2888 Apr, [facility] [place] [facility] [address] [id number] [place] [address]- 0445 Mar, [facility] [place] [facility] [address] [id number] [place] [address]- 3095 Mar, [facility] [place] [facility] [address] [id number] [place] [address]- 8915 Mar, [facility] [place] [facility] [address] [id number] [place] [address]- 9283 Mar, [facility] [place] [facility] [address] [id number] [place] [address]- 7574 Mar, [facility] [place] [facility] [address] [facility] [id number] [place] [address]- 1595 Mar, [facility] [place] [facility] [address] [id number] [place] [address]- 8583 Mar, [facility] [place] [facility] [address] [id number] [place] 0379 Mar, [facility] [place] [facility] [address] [facility] [id number] [place] [address]- 4539 Mar, [facility] [place] [facility] [address] [id number] [place] 3771 Feb, [facility] [place] [facility] [address] [id number] [place] [address]- 0361 20 Feb, 2014 [facility] [place] [facility] [address] [id number] [place] [address]- 9671 17 Feb, 2014 [facility] [place] [facility] [address] [id number] [place] [address]- 0936 17 Feb, 2014 [facility] [place] [facility] [address] [id number] [place] [address]- 5092 Feb, [facility] [place] [facility] [address] [id number] [place] [address]- 7251 Feb, [facility] [place] [facility] [address] [id number] [place] [address]- 1166 Feb, [facility] [place] [facility] [address] [id number] [place] [address]- 4831 Feb, [facility] [place] [facility] [address] [id number] [place] [address]- 9415 23 Jan, 2014 [facility] [place] [facility] [address] [id number] [place] [address]- 3110 23 Jan, 2014 [facility] [place] [facility] [address] [id number] [place] [address]- 0857 16 Jan, 2014 [facility] [place] [facility] [address] [id number] [place] [address]- 0792 16 Jan, 2014 [facility] [place] [facility] [address] [id number] [place] [address]- 3415 15 Jan, 2014 [facility] [place] [facility] [address] [id number] [place] [address]- 5931 15 Jan, 2014 [facility] [place] [facility] [address] [id number] [place] [address]- 3083 14 Jan, 2014 [facility] [place] [facility] [address] [id number] [place] [address]- 0958 14 Jan, 2014 [facility] [place] [facility] [address] [id number] [place] [address]- 5631 14 Jan, 2014 [facility] [place] [facility] [address] [id number] [place] [address]- 4395 14 Jan, 2014 [facility] [place] [facility] [address] [id number] [place] [address]- 3681 18 Dec, 2013 [facility] [place] [facility] [address] [id number] [place] [address]- 8847 18 Dec, 2013 [facility] [place] [facility] [address] [id number] [place] [address]- 9522 Dec, [facility] [place] [facility] [address] [id number] [place] [address]- 4798 Dec, [facility] [place] [facility] [address] [id number] [place] [address]- 4614 Nov, [facility] [place] [facility] [address] [id number] [place] [address]- 7077 Nov, [facility] [place] [facility] [address] [id number] [place] [address]- 7972 Nov, [facility] [place] [facility] [address] [id number] [place] [address]- 6517 Nov, [facility] [place] [facility] [address] [id number] [place] [address]- 9803 Nov, [facility] [place] [facility] [address] [id number] [place] [address]- 7397 Oct, [facility] [place] [facility] [address] [id number] [place] [address]- 6198 Oct, [facility] [place] [facility] [address] [id number] [place] [address]- 1602 Oct, [facility] [place] [facility] [address] [id number] [place] [address]- 4900 Oct, [facility] [place] [facility] [address] [id number] [place] [address]- 8102 Sep, [facility] [place] [facility] [address] [id number] [place] [address]- 6958 Sep, [facility] [place] [facility] [address] [id number] [place] [address]- 8363 Sep, [facility] [place] [facility] [address] [id number] [place] [address]- 2194 Sep, [facility] [place] [facility] [address] [id number] [place] [address]- 5103 Sep, [facility] [place] [facility] [address] [id number] [place] [address]- 3803 Sep, [facility] [place] [facility] [address] [id number] [place] [address]- 2410 Sep, [facility] [place] [facility] [address] [id number] [place] [address]- 2671 Sep, [facility] [place] [facility] [address] [id number] [place] [address]- 9803 August, [facility] [place] [facility] [address] [id number] [place] [address]- 8155 August, [facility] [place] [facility] [address] [id number] [place] [address]- 8868 August, [facility] [place] [facility] [address] [id number] [place] [address]- 6453 August, [facility] [place] [facility] [address] [id number] [place] [address]- 7286 August, [facility] [place] [facility] [address] [id number] [place] [address]- 0589 August, [facility] [place] [facility] [address] [id number] [place] [address]- 1335 August, [facility] [place] [facility] [address] [id number] [place] [address]- 3154 Jul, [facility] [place] [facility] [address] [id number] [place] [address]- 4493 Jul, [facility] [place] [facility] [address] [id number] [place] [address]- 8924 Jul, [facility] [place] [facility] [address] [id number] [place] [address]- 4683 Jul, [facility] [place] [facility] [address] [id number] [place] [address]- 0117 Jul, [facility] [place] [facility] [address] [id number] [place] [address]- 4891 Jul, [facility] [place] [facility] [address] [id number] [place] [address]- 4067 Jul, [facility] [place] [facility] [address] [id number] [place] [address]- 6107 Jul, [facility] [place] [facility] [address] [id number] [place] [address]- 2293 Jul, [facility] [place] [facility] [address] [id number] [place] [address]- 9903 Jul, [facility] [place] [facility] [address] [id number] [place] [address]- 7298 Jul, [facility] [place] [facility] [address] [id number] [place] [address]- 0038 Jul, [facility] [place] [facility] [address] [id number] [place] [address]- 5958 Jun, [facility] [place] [facility] [address] [id number] [place] [address]- 7005 31 Jun, 2013 [facility] [place] [facility] [address] [id number] [place] [address]- 4370 27 Jun, 2013 [facility] [place] [facility] [address] [id number] [place] [address]- 6453 Jun, [facility] [place] [facility] [address] [id number] [place] 6061 Jun, [facility] [place] [facility] [address] [id number] [place] [address]- 6574 May, [facility] [place] [facility] [address] [id number] [place] [address]- 1503 May, [facility] [place] [facility] [address] [facility] [id number] [place] [address]- 4966 May, [facility] [place] [facility] [address] [facility] [id number] [place] [address]- 6076 May, [facility] [place] [facility] [address] [id number] [place] [address]- 0203 May, [facility] [place] [facility] [address] [id number] [place] [address]- 2309 May, [facility] [place] [facility] [address] [facility] [id number] [place] [address]- 5549 May, [facility] [place] [facility] [address] [facility] [id number] [place] [address]- 2753 May, [facility] [place] [facility] [address] [facility] [id number] [place] [address]- 4869 Mar, [facility] [place] [facility] [address] [facility] [id number] [place] [address]- 6678 Mar, [facility] [place] [facility] [address] [facility] [id number] [place] [address]- 9129 Mar, [facility] [place] [facility] [address] [facility] [id number] [place] [address]- 0919 Mar, [facility] [place] [facility] [address] [facility] [id number] [place] [address]- 2444 Mar, [facility] [place] [facility] [address] [facility] [id number] [place] [address]- 2737 Mar, [facility] [place] [facility] [address] [facility] [id number] [place] [address]- 8015 Feb, [facility] [place] [facility] [address] [facility] [id number] [place] [address]- 7836 Feb, [facility] [place] [facility] [address] [id number] [place] [address]- 9952 Jan, [facility] [place] [facility] [address] [id number] [place] [address]- 4887 Jan, [facility] [place] [facility] [address] [id number] [place] [address]- 9235 Jan, [facility] [place] [facility] [address] [id number] [place] [address]- 4101 Jan, 2012 [facility] [place] [facility] [address] [id number] [place] [address]- 6570 Jan, [facility] [place] [facility] [address] [id number] [place] [address]- 1230 Jan, [facility] [place] [facility] [address] [id number] [place] [address]- 0570 Jan, [facility] [place] [facility] [address] [id number] [place] [address]- 1360 Jan, [facility] [place] [facility] [address] [id number] [place] [address]- 8567 Jan, [facility] [place] [facility] [address] [id number] [place] [address]- 7207 Jan, [facility] [place] [facility] [address] [id number] [place] [address]- 7953 Dec, [facility] [place] [facility] [address] [id number] [place] [address]- 6204 Nov, [facility] [place] [facility] [address] [id number] [place] [address]- 0976 Nov, [facility] [place] [facility] [address] [id number] [place] [address]- 4972 Nov, [facility] [place] [facility] [address] [id number] [place] [address]- 6647 Oct, [facility] [place] [facility] [address] [id number] [place] [address]- 0155 Oct, [facility] [place] [id number] [address] 4791 August, [facility] [place] [address] [place] [address]- 0845 Apr, [facility] [place] [address] [address]- 5538 Apr, [facility] [place] [id number] [address] Feb, [facility], [place] [id number] [address] Feb, [facility], [place] [id number] [place] [address] Dec, [facility], [place] [id number] [address] Dec, [facility], [place] [id number] [address] Oct, [facility], [place] [id number] [place] [address] Oct, [facility], [place] [id number] [place] [address] Oct, [facility], [place] [id number] [address] Jul, IMMUNIZATIONS Vaccine Route Administration Date Status INVEGA (PT'S OWN) IM Intramuscular Jan 03, 2018 Administered SOCIAL HISTORY Never Assessed REASON FOR VISIT Injection PLAN OF CARE VITAL SIGNS MEDICATIONS Unknown Medications RESULTS No Results PROCEDURES Procedure Date Ordered Result Body Site INVEGA (PT'S OWN) Jan 03, 2018 THER/PROPH/DIAG INJ, SC/IM Jan 03, 2018 INSTRUCTIONS MEDICATIONS ADMINISTERED No Known [...] illness , last one in [facility] 4 years ago
--- OUTSIDE RECORDS SUMMARY | 2018-09-02 13:22 | XMS REPORT ---
Author Author EDWINUMESH CASIANO Organization [facility] [address] Address [address] [place] [address] Care Team Providers Care Fountain Brush Assembler Name Role Phone UMESH PINEDA Unavailable PROBLEMS Type Condition ICD9-CM Code RDT36-VM Code Onset Dates Condition Status SNOMED Code Problem OAB (overactive bladder) N32.81 Active 146048554 Problem Depression with anxiety F41.8 Active 550806772 Problem Other seasonal allergic rhinitis J30.2 Active 912687847 Problem Chronic obstructive pulmonary disease, unspecified COPD type J44.9 Active 10885234 Problem Tobacco abuse Z72.0 Active 014649199 Problem Morbid obesity due to excess calories E66.01 Active 379894906 Problem Dyslipidemia E78.5 Active 782525207 Problem Hypothyroidism (acquired) E03.9 Active 643232625 Problem Essential hypertension I10 Active 67435760 Problem Diabetic polyneuropathy associated with type 2 diabetes mellitus E11.42 Active 618864007 Problem Type 2 diabetes mellitus with diabetic neuropathic arthropathy, 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 Active 257150326 Problem Type 2 diabetes mellitus without complication, without long-term current use of insulin E11.9 Active 169462510 Problem Paranoid schizophrenia F20.0 Active 38322296 Problem Chronic pain syndrome G89.4 Active 082039224 Problem Migraine without aura and without status migrainosus, not intractable G43.009 Active 109137937 Problem Gastroesophageal reflux disease, esophagitis presence not specified K21.9 Active 785690329 Problem Seasonal allergic rhinitis due to pollen J30.1 Active 50797173 Problem COPD exacerbation J44.1 Active 919694289 Problem Seasonal allergic rhinitis due to other allergic trigger J30.89 Active 504789743 Problem Schizoaffective disorder, depressive type F25.1 Active 23347992 Problem History of lupus Z87.39 Active 537016214 Problem Gastroesophageal reflux disease without esophagitis K21.9 Active 707668720 Problem Menopausal syndrome (hot flashes) N95.1 Active 131823276 Problem Other allergic rhinitis J30.89 Active 331905184 Problem Primary insomnia F51.01 Active 3615324 Problem DM neuro manif type II E11.49 Active [id number] ALLERGIES No Information ENCOUNTERS Encounter Location Date Diagnosis [facility] [id number] [place] [address] 46373- 4398 Jan, [facility] [id number] [place] [address] 14762- 3279 Jan, [facility] [id number] [place] [address] 02310- 5625 Jan, [facility] [id number] [place] [address] 70822- 3450 Jan, [facility] [id number] [place] [address] 58628- 1821 Jan, [facility] [id number] [place] [address] 45732- 0819 27 Dec, 2017 [facility] [id number] [place] [address] 36267- 0482 21 Dec, 2017 Schizoaffective disorder, depressive type F25.1 and BMI 45.0 -49.9, adult Z68.42 [place] [id number] [place] [address] 20637- 1515 Dec, [facility] [id number] [place] [address] 68367- 7217 Dec, [facility] [id number] [place] [address] 94671- 3620 18 Dec, 2017 Acute non-recurrent frontal sinusitis J01.10 [place] [id number] [place] [address] 19643- 3828 18 Dec, 2017 Acute non-recurrent frontal sinusitis J01.10 ; Weakness of left leg R29.898 ; At high risk for falls Z91.81 and BMI 45.0-49.9, adult Z68.42 [place] [id number] [address] 6256 Dec, [facility] [id number] [place] [address] 66942- 1934 Dec, [facility] [id number] [place] [address] 85841- 7827 Dec, Schizoaffective disorder, depressive type F25.1 [facility] [id number] [place] [address] 18839 -7720 Dec, Acute nasopharyngitis J00 [facility] [id number] [place] [address] 32018- 9756 Dec, Schizoaffective disorder, depressive type F25.1 [facility] [id number] [place] [address] 76292- 1077 Dec, [facility] [id number] [place] [address] 01694- 4199 Nov, Schizoaffective disorder, depressive type F25.1 and BMI 45.0 -49.9, adult Z68.42 [place] [id number] [place] [address] 65350- 2164 Nov, [facility] [id number] [place] [address] 18450- 2766 Nov, [place] [id number] [place] [address] 82805- 0839 Nov, Schizoaffective disorder, depressive type F25.1 [facility] [address] [place] [address] 56539- 6662 Nov, Well woman exam Z01.419 ; BMI 45.0-49.9, adult Z68.42 ; Screening breast examination Z12.31 and Dietary counseling and surveillance Z71.3 [facility] [id number] [place] [address] 86634- 1881 Nov, Paranoid schizophrenia F20.0 [place] [address] [address]- 0762 Nov, Gastroesophageal reflux disease, esophagitis presence not specified K21.9 [place] [id number] [place] [address] 80106- 4972 Oct, Paranoid schizophrenia F20.0 [facility] [place] [address] [id number] [address] Oct Chronic pain syndrome G89.4 and Schizoaffective disorder, depressive type F25.1 [place] [id number] [place] [address] 33845- 9714 Oct, Chronic pain syndrome G89.4 and Schizoaffective disorder, depressive type F25.1 [place] [address] [place] [address] 13438- 3217 Oct, Type 2 diabetes mellitus without complication, without long- term current use of insulin E11.9 [place] [id number] [place] [address] 20870- 1702 Oct, Essential hypertension I10 and DM neuro manif type II E11.49 [place] [id number] [place] [address] 20082- 1718 Oct, [place] [address] [place] [address] 36890- 1017 Oct, Schizoaffective disorder, depressive type F25.1 and BMI 45.0 -49.9, adult Z68.42 [place] [address] [place] [address] 43146- 6442 Oct, [place] [id number] [place] [address] 62658- 7252 Oct, Paranoid schizophrenia F20.0 [place] [address] [place] [address] 36502- 3945 Oct, Type 2 diabetes mellitus with diabetic neuropathic arthropathy, 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 [id number] [place] [address] 69139- 7244 Sep, Paranoid schizophrenia F20.0 [facility] [id number] [place] [address] 94606- 4110 Sep, Paranoid schizophrenia F20.0 and BMI 45.0-49.9, adult Z68.42 [facility] [address] 72958- 5551 Sep, Schizoaffective disorder, depressive type F25.1 [facility] [id number] [place] [address] 38753- 9174 Sep, [facility] [id number] [place] [address] 42401- 4531 Sep, Paranoid schizophrenia F20.0 [facility] [id number] [place] [address] 83685- 7797 Sep, [facility] [address] 55782- 9211 Sep, Hypothyroidism (acquired) E03.9 [facility] [id number] [place] [address] 63898- 1521 Sep, [facility] [id number] [place] [address] 51333- 2663 August, Schizoaffective disorder, depressive type F25.1 [facility] [id number] [place] [address] 27316- 0439 August, [facility] [id number] [place] [address] 58474- 7909 August, [facility] [id number] [place] [address] 02143- 5367 August, [facility] [address] 74726- 8828 August, Paranoid schizophrenia F20.0 [place] [address] 50778- 6013 August, History of lupus Z87.39 and Chronic pain syndrome G89.4 [place] [address] 17925- 0728 August, [facility] [place] [address] 35742 -8734 August, Seasonal allergic rhinitis, unspecified trigger J30.2 and BMI 45.0-49.9, adult Z68.[address] 20430- 8478 Jul, Schizoaffective disorder, depressive type F25.[address] 83219- 1654 Jul, [place] [address] 51419- 6576 Jul, Hypothyroidism (acquired) E03.[address] 86232- 0716 Jul, Chronic obstructive pulmonary disease, unspecified COPD type J44.9 and Type 2 diabetes mellitus without complication, without long-term current use of insulin E11.[address] 37364- 1836 Jul, Paranoid schizophrenia F20.0 [place] [address] 12321- 1819 Jun, Hypothyroidism (acquired) E03.9 and Seasonal allergic rhinitis due to pollen J30.1 [facility] [place] [address] 33062 -9139 Jun, Shortness of breath at rest R06.02 ; COPD exacerbation J44.1 and BMI 45.0-49.9, adult Z68.42 [place] [address] [place] [address] 17239- 8917 Jun, [facility] [id number] [place] [address] 37895- 2808 Jun, Paranoid schizophrenia F20.0 ; Depression with anxiety F41.8 and BMI 45.0-49.9, adult Z68.42 [facility] [id number] [place] [address] 35125- 7997 Jun, Schizoaffective disorder, depressive type F25.1 [facility] [id number] [place] [address] [id number] Jun, Dental caries K02.9 [facility] [id number] [place] [address] 05130- 3588 Jun, Paranoid schizophrenia F20.0 [facility] [id number] [place] [address] 47431- 9998 May, Migraine without aura and without status migrainosus, not intractable G43.009 ; DM neuro manif type II E11.49 and Type 2 diabetes mellitus without complication, without long-term current use of insulin E11.9 [facility] [id number] [place] [address] 43999- 9226 May, Migraine without aura and without status migrainosus, not intractable G43.009 [facility] [id number] [place] [address] 96768- 7566 May, Depression with anxiety F41.8 [facility] [address] [place] [address] [id number] May, [facility] [id number] [place] [address] 03029- 8026 May, [facility] [id number] [place] [address] 45854- 7280 May, [facility] [id number] [place] [address] 25009- 1966 May, Hypothyroidism (acquired) E03.9 [facility] [address] 53990- 9263 May, Paranoid schizophrenia F20.0 [place] [address] 73698- 0426 08 May, 2017 Type 2 diabetes mellitus [...] N32.81 and Controlled substance agreement signed Z79.899 [place] [address] 23271- 3342 May, Controlled substance agreement signed Z79.899 [place] [address] 76034- 4931 Apr, [facility] [address] [id number] Apr, Dental examination Z01.20 [place] [address] 83581- 9472 Apr, Paranoid schizophrenia F20.0 [place] [address] 13414- 8393 Apr, Hypertension, unspecified type I10 [place] [address] 89853- 9368 Apr, Paranoid schizophrenia F20.0 [place] [address] 68937- 2913 Apr, [facility] [id number] [place] [address] 67623- 3964 Apr, Tobacco abuse Z72.0 [facility] [id number] [place] [address] 13256- 6536 Apr, [facility] [id number] [place] [address] 00953- 6106 Mar, [facility] [address] 95765- 2650 Mar, Paranoid schizophrenia F20.0 and BMI 45.0-49.9, adult Z68.42 [facility] [id number] [place] [address] 58546- 8278 Mar, Schizoaffective disorder, depressive type F25.1 [facility] [id number] [place] [address] 29319- 5627 Mar, [facility] [id number] [place] [address] 21560- 8037 Mar, Hypothyroidism, unspecified type E03.9 [facility] [id number] [place] [address] 23029- 8555 Mar, Schizoaffective disorder, depressive type F25.1 [facility] [id number] [place] [address] 38702 -9694 Feb, Gastroenteritis K52.9 and BMI 45.0-49.9, adult Z68.42 [facility] [id number] [place] [address] 23232- 5369 Feb, [facility] [id number] [place] [address] 92486- 0387 Feb, [facility] [id number] [place] [address] 12809- 7104 Feb, [facility] [id number] [place] [address] 63657- 0844 Feb, [place] [id number] [place] [address] 77845- 6114 Feb, Paranoid schizophrenia F20.[address] 04717- 7537 Feb, Gastroesophageal reflux disease without esophagitis K21.9 ; Other seasonal allergic rhinitis J30.2 ; Other allergic rhinitis J30.89 ; Tobacco abuse Z72.0 and BMI 40.0-44.9, adult Z68.[address] 49082- 1102 Feb, Onychomycosis B35.1 ; Callus of foot L84 and DM neuro manif type II E11.[address] 80062- 3977 Jan, Chronic allergic rhinitis J30.[address] 10399- 7324 Jan, [address] 08252- 9442 Jan, Schizoaffective disorder, depressive type F25.[address] 38210- 6826 Jan, [facility] [address] [place] [address] 88652 -8242 Jan, Sore throat J02.9 and Seasonal allergic rhinitis due to other allergic trigger J30.89 [place] [id number] [place] [address] 89802- 6417 Jan, [address] 16120- 8189 Jan, [facility] [address] [place] [address] 19058 -0933 Jan, Chronic allergic rhinitis J30.[address] 24259- 6368 Dec, Paranoid schizophrenia F20.0 ; Primary insomnia F51.01 and Schizoaffective disorder, depressive type F25.1 [facility] [id number] [place] [address] 62187- 3288 Dec, Chronic pain syndrome G89.4 ; Cervicalgia of occipito- atlanto-axial region M54.2 ; Menopausal syndrome (hot flashes) N95.1 and Encounter for immunization Z23 [facility] [address] 89410- 9067 14 Dec, 2016 [facility] [address] 45275- 5795 13 Dec, 2016 [place] [address] 23834- 0019 08 Dec, 2016 Paranoid schizophrenia F20.0 [place] [id number] [place] [address] 39919- 6233 Dec, Schizoaffective disorder, depressive type F25.1 [facility] [id number] [place] [address] 84522- 4671 Nov, Hypothyroidism, unspecified type E03.9 [facility] [id number] [place] [address] 65679 -2242 Nov, Acute seasonal allergic rhinitis due to other allergen J30.89 [facility] [id number] [place] [address] 58671- 0034 Nov, [facility] [id number] [place] [address] 59774- 0836 Nov, Hypothyroidism, unspecified type E03.9 and Other elevated white blood cell (WBC) count D72.828 [place] [id number] [place] [address] 12944- 4289 Nov, Schizoaffective disorder, depressive type F25.1 [facility] [id number] [place] [address] 26887- 0343 Nov, Paranoid schizophrenia F20.0 [place] [address] [address]- 6176 Nov, Type 2 diabetes mellitus without complication, without long- term current use of insulin E11.9 ; Morbid obesity due to excess calories E66.01 and Chronic pain syndrome G89.4 [place] [address] [place] [address] 41116- 2678 Oct, Paranoid schizophrenia F20.0 [place] [address] [place] [address] 93822- 2320 Oct, [place] [id number] [place] [address] 21452- 9210 Oct, Schizoaffective disorder, depressive type F25.1 [place] [address] [place] [address] 18841- 4444 Oct, Hypothyroidism, unspecified type E03.9 and Other elevated white blood cell (WBC) count D72.828 [place] [address] [place] [address] 90449- 0767 Oct, Morbid obesity due to excess calories E66.01 ; Chronic obstructive pulmonary disease, unspecified COPD type J44.9 ; History of lupus Z87.39 ; Hypothyroidism, unspecified type E03.9 ; Gastroesophageal reflux disease without esophagitis K21.9 ; Primary insomnia F51.01 and Chronic pain syndrome G89.4 [place] [address] [address]- 2790 Sep, [place] [address] [address]- 8608 Sep, [place] [address] [address]- 9876 Sep, [place] [address] [address]- 6588 Sep, Paranoid schizophrenia F20.0 [place] [id number] [address]- 3231 Sep, [facility] [address] [place] [address] 01358- 2013 Sep, Paranoid schizophrenia F20.0 [facility] [address] [place] [address] 47204- 5790 Sep, [facility] [id number] [place] [address] 80710- 6884 August, Paranoid schizophrenia F20.0 [facility] [id number] [place] [address] 41771- 2099 Jul, [facility] [id number] [place] [address] 39419- 8132 Jul, Type 2 diabetes mellitus without complication, without long- term current use of insulin E11.9 ; Morbid obesity due to excess calories E66.01 ; Depression with anxiety F41.8 ; Hypothyroidism, unspecified type E03.9 ; Seasonal allergic rhinitis due to other allergic trigger J30.89 ; Pain, dental K08.89 and Gastroesophageal reflux disease without esophagitis K21.9 [facility] [id number] [place] [address] [id number] Jul, Dental examination Z01.20 [facility] [address] [place] [address] 53585- 7469 07 Jul, 2016 Paranoid schizophrenia F20.0 [facility] [address] [place] [address] 26605- 0611 13 Jun, 2016 Paranoid schizophrenia F20.0 and Depression with anxiety F41.8 [facility] [address] [place] [address] 04935- 3252 10 Jun, 2016 Paranoid schizophrenia F20.0 and Depression with anxiety F41.8 [facility] [address] [place] [address] 69076- 0418 09 Jun, 2016 [facility] [id number] [place] [address] 66301- 1132 08 Jun, 2016 [facility] [id number] [place] [address] 82740 -1949 08 Jun, 2016 Seasonal allergic rhinitis due to other allergic trigger J30.89 [facility] [id number] [place] [address] 47282 -5811 25 May, 2016 Sore throat J02.9 ; Other viral agents as the cause of diseases classified elsewhere B97.89 and Acute upper respiratory infection, unspecified J06.9 [place] [id number] [place] [address] 23302- 7241 08 May, 2016 Paranoid schizophrenia F20.0 and Depression with anxiety F41.8 [place] [id number] [place] [address] 91179- 8237 Apr, Other seasonal allergic rhinitis J30.2 [place] [id number] [place] [address] 04203- 1520 Apr, Paranoid schizophrenia F20.0 and Depression with anxiety F41.8 [facility] [place] [address] [id number] [place] [address] 58198 -5488 Apr, Bronchitis J40 and Sore throat J02.9 [place] [id number] [place] [address] 66627- 1217 Apr, Type 2 diabetes mellitus without complication, without long- term current use of insulin E11.9 [facility] [place] [id number] [place] [address] 21003 -6989 Apr, Bronchitis J40 [place] [id number] [place] [address] 02839- 5707 Apr, [place] [id number] [place] [address] 92595- 6369 Apr, [place] [address] [place] [address] 77416- 2539 Mar, Type 2 diabetes mellitus without complication, [...] R60.9 and Other seasonal allergic rhinitis J30.2 [place] [address] [address]- [address] Mar, Paranoid schizophrenia F20.0 and Depression with anxiety F41.8 [place] [address] [place] [id number] [place] [address] [id number]- 9170 Feb, [place] [address] [address]- [address] Feb, [place] [address] [address]- [address] Feb, [place] [address] [address]- [address] Feb, [place] [address] [address]- [address]339 Feb, Type 2 diabetes mellitus without complication, without long- term current use of insulin E11.9 ; ARIAS on CPAP G47.33 and Preoperative evaluation to rule out surgical contraindication Z01.818 [place] [address] [place] [id number] [place] [address] 7[address]60- 1497 Feb, Paranoid schizophrenia F20.0 and Depression with anxiety F41.8 [place] [address] [place] [id number] [place] [address] 52595- 9302 Jan, [place] [address] [address]- [address] Jan, Paranoid schizophrenia F20.0 and Depression with anxiety F41.8 [place] [address] [address]- [address] Jan, [place] [address] [address] 14 Jan, 2016 Muscle strain T14.8 [facility] [address] [place] [id number] [address] Jan, Paranoid schizophrenia F20.0 [facility] [address] [address] Jan, [facility] [address] [place] [id number] [place] [address] 96157- 0874 Jan, Paranoid schizophrenia F20.0 and Depression with anxiety F41.8 [facility] [id number] [place] [address] 51074- 9493 Jan, [facility] [id number] [place] [address] 43280- 7590 Jan, [facility] [id number] [place] [address] 16724- 0300 28 Dec, 2015 [facility] [address] [address] 6589 23 Dec, 2015 Paranoid schizophrenia F20.0 [facility] [id number] [place] [address] 01344- 8523 16 Dec, 2015 Paranoid schizophrenia F20.0 and Depression with anxiety F41.8 [facility] [address] [address] 50[address] Nov, [facility] [address] [address] 2412 Nov, Paranoid schizophrenia F20.0 [facility] [address] [address] 1872 Nov, Paranoid schizophrenia F20.0 and Depression with anxiety F41.8 [facility] [address] [address] 4640 Nov, Type 2 diabetes mellitus without complication, without long- term current use of insulin E11.9 ; Paranoid schizophrenia F20.0 ; Chronic obstructive pulmonary disease, unspecified COPD type J44.9 ; Morbid obesity due to excess calories E66.01 and Parkinsonian tremor G20 [facility] [id number] [place] [address] 93150- 9891 Nov, [facility] [id number] [place] [address] 86459- 5190 Oct, Paranoid schizophrenia F20.0 [facility] [id number] [place] [address] 88230- 4855 Oct, Paranoid schizophrenia F20.0 [facility] [id number] [place] [address] 48481- 7533 Oct, Paranoid schizophrenia F20.0 and Depression with anxiety F41.8 [facility] [id number] [place] [address] 64982- 1768 Oct, [facility] [id number] [place] [address] 51245- 4314 Oct, Paranoid schizophrenia F20.0 and Depression with anxiety F41.8 [facility] [id number] [place] [address] 59157- 7459 Oct, Nasal sore J34.89 [facility] [id number] [place] [address] 98726- 4603 Oct, Type 2 diabetes mellitus without complication, without long- term current use of insulin E11.9 ; Depression with anxiety F41.8 ; Hypothyroidism, unspecified type E03.9 and History of lupus Z87.39 [facility] [id number] [place] [address] 10626- 7582 Oct, [facility] [id number] [place] [address] 84849- 4155 Oct, Type 2 diabetes mellitus without complication, [...] edema R60.9 and History of lupus Z87.39 [facility] [id number] [place] [address] 033944- 8867 Feb, [facility] [id number] [place] [address] [id number]- 2069 Jan, [facility] [id number] [place] [address] [id number]- 4647 Jan, [facility] [id number] [place] [address] 46239- 0479 Jan, [facility] [id number] [place] [address] 99959- 3592 Dec, [facility] [id number] [place] [address] 919017- 1297 Nov, [facility] [id number] [place] [address] [id number]- 9554 Nov, [facility] [id number] [place] [address] 73010- 0506 Oct, [facility] [id number] [place] [address] 54664- 5184 Oct, [facility] [id number] [place] [address] [id number]- 7168 Oct, [facility] [id number] [place] [address] 333168- 6110 Sep, Allergic rhinitis 477.9 [facility] [id number] [place] [address] 69793- 5000 Sep, Rhinitis, allergic 477.9 [facility] [address] [place] [address]- 9099 10 Sep, 2014 Rhinitis, allergic 477.9 [facility] [place] [facility] [address] [id number] [place] [address]- 2496 Sep, [facility] [place] [facility] [address] [id number] [place] [address]- 3316 August, [facility] [place] [facility] [address] [id number] [place] [address]- 8619 August, [facility] [place] [facility] [address] [id number] [place] [address]- 7449 August, [facility] [place] [facility] [address] [id number] [place] [address]- 5523 28 Jul, 2014 [facility] [place] [facility] [address] [facility] [id number] [place] [address]- 7154 14 Jul, 2014 [facility] [place] [facility] [address] [facility] [id number] [place] [address]- 3093 Jul, [facility] [place] [facility] [address] [id number] [place] [address]- 3872 16 Jun, 2014 [facility] [place] [facility] [address] [id number] [place] [address]- 7219 16 Jun, 2014 [facility] [place] [facility] [address] [facility] [id number] [place] [address]- 6102 Jun, [facility] [place] [facility] [address] [facility] [id number] [place] [address]- 0022 Jun, [facility] [place] [facility] [address] [id number] [place] [address]- 2377 Jun, [facility] [place] [facility] [address] [id number] [place] [address]- 4061 Jun, [facility] [place] [facility] [address] [facility] [id number] [place] [address]- 2106 02 Jun, 2014 [facility] [place] [facility] [address] [facility] [id number] [place] [address]- 2249 Jun, [facility] [place] [facility] [address] [id number] [place] 3211 May, [facility] [place] [facility] [address] [id number] [place] [address]- 3656 May, [facility] [place] [facility] [address] [id number] [place] [address]- 7926 May, [facility] [place] [facility] [address] [id number] [place] [address]- 2228 May, 2014 [facility] [place] [facility] [address] [id number] [place] [address]- 2966 Apr, [facility] [place] [facility] [address] [id number] [place] [address]- 7045 Mar, [facility] [place] [facility] [address] [id number] [place] [address]- 0757 Mar, [facility] [place] [facility] [address] [id number] [place] [address]- 4708 Mar, [facility] [place] [facility] [address] [id number] [place] [address]- 3382 Mar, [facility] [place] [facility] [address] [id number] [place] [address]- 9487 Mar, [facility] [place] [facility] [address] [facility] [id number] [place] [address]- 6633 Mar, [facility] [place] [facility] [address] [id number] [place] [address]- 8409 Mar, [facility] [place] [facility] [address] [id number] [place] 8624 Mar, [facility] [place] [facility] [address] [facility] [id number] [place] [address]- 8346 Mar, [facility] [place] [facility] [address] [id number] [place] 5052 Feb, [facility] [place] [facility] [address] [id number] [place] [address]- 5604 20 Feb, 2014 [facility] [place] [facility] [address] [id number] [place] [address]- 5289 17 Feb, 2014 [facility] [place] [facility] [address] [id number] [place] [address]- 1570 17 Feb, 2014 [facility] [place] [facility] [address] [id number] [place] [address]- 6523 Feb, [facility] [place] [facility] [address] [id number] [place] [address]- 8808 Feb, [facility] [place] [facility] [address] [id number] [place] [address]- 4812 Feb, [facility] [place] [facility] [address] [id number] [place] [address]- 2288 Feb, [facility] [place] [facility] [address] [id number] [place] [address]- 7301 23 Jan, 2014 [facility] [place] [facility] [address] [id number] [place] [address]- 5023 23 Jan, 2014 [facility] [place] [facility] [address] [id number] [place] [address]- 4292 16 Jan, 2014 [facility] [place] [facility] [address] [id number] [place] [address]- 5678 16 Jan, 2014 [facility] [place] [facility] [address] [id number] [place] [address]- 9284 15 Jan, 2014 [facility] [place] [facility] [address] [id number] [place] [address]- 9710 15 Jan, 2014 [facility] [place] [facility] [address] [id number] [place] [address]- 3198 14 Jan, 2014 [facility] [place] [facility] [address] [id number] [place] [address]- 9402 14 Jan, 2014 [facility] [place] [facility] [address] [id number] [place] [address]- 3712 14 Jan, 2014 [facility] [place] [facility] [address] [id number] [place] [address]- 6949 14 Jan, 2014 [facility] [place] [facility] [address] [id number] [place] [address]- 6642 18 Dec, 2013 [facility] [place] [facility] [address] [id number] [place] [address]- 2150 18 Dec, 2013 [facility] [place] [facility] [address] [id number] [place] [address]- 1148 Dec, [facility] [place] [facility] [address] [id number] [place] [address]- 1629 Dec, [facility] [place] [facility] [address] [id number] [place] [address]- 8669 Nov, [facility] [place] [facility] [address] [id number] [place] [address]- 0245 Nov, [facility] [place] [facility] [address] [id number] [place] [address]- 0220 Nov, [facility] [place] [facility] [address] [id number] [place] [address]- 0535 Nov, [facility] [place] [facility] [address] [id number] [place] [address]- 3833 Nov, [facility] [place] [facility] [address] [id number] [place] [address]- 7638 Oct, [facility] [place] [facility] [address] [id number] [place] [address]- 1477 Oct, [facility] [place] [facility] [address] [id number] [place] [address]- 9996 Oct, [facility] [place] [facility] [address] [id number] [place] [address]- 2070 Oct, [facility] [place] [facility] [address] [id number] [place] [address]- 3828 Sep, [facility] [place] [facility] [address] [id number] [place] [address]- 7246 Sep, [facility] [place] [facility] [address] [id number] [place] [address]- 7081 Sep, [facility] [place] [facility] [address] [id number] [place] [address]- 3402 Sep, [facility] [place] [facility] [address] [id number] [place] [address]- 8958 Sep, [facility] [place] [facility] [address] [id number] [place] [address]- 9949 Sep, [facility] [place] [facility] [address] [id number] [place] [address]- 8877 Sep, [facility] [place] [facility] [address] [id number] [place] [address]- 7429 Sep, [facility] [place] [facility] [address] [id number] [place] [address]- 9074 August, [facility] [place] [facility] [address] [id number] [place] [address]- 8368 August, [facility] [place] [facility] [address] [id number] [place] [address]- 4564 August, [facility] [place] [facility] [address] [id number] [place] [address]- 4835 August, [facility] [place] [facility] [address] [id number] [place] [address]- 5573 August, [facility] [place] [facility] [address] [id number] [place] [address]- 7200 August, [facility] [place] [facility] [address] [id number] [place] [address]- 4905 August, [facility] [place] [facility] [address] [id number] [place] [address]- 7851 Jul, [facility] [place] [facility] [address] [id number] [place] [address]- 8518 Jul, [facility] [place] [facility] [address] [id number] [place] [address]- 2567 Jul, [facility] [place] [facility] [address] [id number] [place] [address]- 1229 Jul, [facility] [place] [facility] [address] [id number] [place] [address]- 9302 Jul, [facility] [place] [facility] [address] [id number] [place] [address]- 6669 Jul, [facility] [place] [facility] [address] [id number] [place] [address]- 6680 Jul, [facility] [place] [facility] [address] [id number] [place] [address]- 3829 Jul, [facility] [place] [facility] [address] [id number] [place] [address]- 5036 Jul, [facility] [place] [facility] [address] [id number] [place] [address]- 0331 Jul, [facility] [place] [facility] [address] [id number] [place] [address]- 0864 Jul, [facility] [place] [facility] [address] [id number] [place] [address]- 0286 Jul, [facility] [place] [facility] [address] [id number] [place] [address]- 6221 Jun, [facility] [place] [facility] [address] [id number] [place] [address]- 4894 31 Jun, 2013 [facility] [place] [facility] [address] [id number] [place] [address]- 4521 27 Jun, 2013 [facility] [place] [facility] [address] [id number] [place] [address]- 6362 Jun, [facility] [place] [facility] [address] [id number] [place] 8987 Jun, [facility] [place] [facility] [address] [id number] [place] [address]- 6808 May, [facility] [place] [facility] [address] [id number] [place] [address]- 1685 May, [facility] [place] [facility] [address] [facility] [id number] [place] [address]- 2546 May, [facility] [place] [facility] [address] [facility] [id number] [place] [address]- 3267 May, [facility] [place] [facility] [address] [id number] [place] [address]- 6581 May, [facility] [place] [facility] [address] [id number] [place] [address]- 4419 May, [facility] [place] [facility] [address] [facility] [id number] [place] [address]- 9820 May, [facility] [place] [facility] [address] [facility] [id number] [place] [address]- 5327 May, [facility] [place] [facility] [address] [facility] [id number] [place] [address]- 8478 Mar, [facility] [place] [facility] [address] [facility] [id number] [place] [address]- 1211 Mar, [facility] [place] [facility] [address] [facility] [id number] [place] [address]- 5784 Mar, [facility] [place] [facility] [address] [facility] [id number] [place] [address]- 4988 Mar, [facility] [place] [facility] [address] [facility] [id number] [place] [address]- 2886 Mar, [facility] [place] [facility] [address] [facility] [id number] [place] [address]- 7648 Mar, [facility] [place] [facility] [address] [facility] [id number] [place] [address]- 0421 Feb, [facility] [place] [facility] [address] [facility] [id number] [place] [address]- 6361 Feb, [facility] [place] [facility] [address] [id number] [place] [address]- 9847 Jan, [facility] [place] [facility] [address] [id number] [place] [address]- 9556 Jan, [facility] [place] [facility] [address] [id number] [place] [address]- 0581 Jan, [facility] [place] [facility] [address] [id number] [place] [address]- 2965 Jan, 2012 [facility] [place] [facility] [address] [id number] [place] [address]- 6237 Jan, [facility] [place] [facility] [address] [id number] [place] [address]- 9474 Jan, [facility] [place] [facility] [address] [id number] [place] [address]- 9739 Jan, [facility] [place] [facility] [address] [id number] [place] [address]- 2475 Jan, [facility] [place] [facility] [address] [id number] [place] [address]- 2065 Jan, [facility] [place] [facility] [address] [id number] [place] [address]- 7065 Jan, [facility] [place] [facility] [address] [id number] [place] [address]- 4156 Dec, [facility] [place] [facility] [address] [id number] [place] [address]- 3863 Nov, [facility] [place] [facility] [address] [id number] [place] [address]- 3734 Nov, [facility] [place] [facility] [address] [id number] [place] [address]- 6995 Nov, [facility] [place] [facility] [address] [id number] [place] [address]- 0983 Oct, [facility] [place] [facility] [address] [id number] [place] [address]- 8418 Oct, [facility] [id number] [address]- 3072 August, [facility] [address] [address]- 2691 Apr, [facility] [address] [address]- 3079 Apr, [facility] [address] [address]- 3121 Feb, [facility] [address] [address]- 8346 Feb, [facility] [address] 9980 Dec, [facility] [address] [address]- 1431 Dec, [facility] [address] [address]- 3996 Oct, [facility] [address] [address]- 1101 Oct, [facility] [address] [address]- 8215 Oct, [facility] [id number] [address]- 8357 Jul, IMMUNIZATIONS No Known Immunizations SOCIAL HISTORY Never Assessed REASON FOR VISIT f/u PLAN OF CARE Activity Details Follow Up 4 Weeks Reason: VITAL SIGNS Height 57 in 2017-12-22 Weight 213 lbs 2017-12-22 Heart Rate 91 bpm 2017-12-22 Respiratory Rate 28 2017-12-22 BMI 46.09 kg/m2 2017-12-22 Blood pressure systolic 108 mmHg 2017-12-22 Blood pressure diastolic 64 mmHg 2017-12-22 MEDICATIONS Medication Instructions Dosage Frequency Start Date End Date Duration Status Invega Sustenna 234 MG/1.5ML Intramuscular Once a month, on the 10th of every month 1.5 ml 30 days Active Zoloft 100 mg Orally Once a day 2 tablet 24h 30 days Active Loxapine Succinate 10 MG Orally Twice a day PRN 1 capsule 30 days Active HydrOXYzine HCl 50 mg Orally every 8 hrs 1 tablet as needed 8h 30 days Active RESULTS No Results PROCEDURES Procedure Date Ordered Result Body Site [facility] VISIT ESTABLISHED PATIENT Dec 22, 2017 INSTRUCTIONS MEDICATIONS ADMINISTERED No Known Medications MEDICAL [...] psychosis/mental illness , last one in [facility] 4 years ago
--- OUTSIDE RECORDS SUMMARY | 2018-09-02 13:23 | XMS REPORT ---
Author Author ALAYNA KO [facility] Address [address] [place] [address] Care Team Providers Care Mold Operator Name Role Phone ALAYNA KO Unavailable PROBLEMS Type Condition ICD9-CM Code [id number] Code Onset Dates Condition Status SNOMED Code Problem OAB (overactive bladder) N32.81 Active 278352372 Problem Depression with anxiety F41.8 Active 711557621 Problem Other seasonal allergic rhinitis J30.2 Active 529677476 Problem Chronic obstructive pulmonary disease, unspecified COPD type J44.9 Active 87516784 Problem Tobacco abuse Z72.0 Active 420055788 Problem Morbid obesity due to excess calories E66.01 Active 751993600 Problem Dyslipidemia E78.5 Active 032206184 Problem Hypothyroidism (acquired) E03.9 Active 001669740 Problem Essential hypertension I10 Active 70827081 Problem Diabetic polyneuropathy associated with type 2 diabetes mellitus E11.42 Active 497479591 Problem Type 2 diabetes mellitus with diabetic neuropathic arthropathy, 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 Active 205918776 Problem Type 2 diabetes mellitus without complication, without long-term current use of insulin E11.9 Active 385041652 Problem Paranoid schizophrenia F20.0 Active 65981672 Problem Chronic pain syndrome G89.4 Active 437246467 Problem Migraine without aura and without status migrainosus, not intractable G43.009 Active 526358055 Problem Gastroesophageal reflux disease, esophagitis presence not specified K21.9 Active 446751737 Problem Seasonal allergic rhinitis due to pollen J30.1 Active 40482107 Problem COPD exacerbation J44.1 Active 329576273 Problem Seasonal allergic rhinitis due to other allergic trigger J30.89 Active 612455854 Problem Schizoaffective disorder, depressive type F25.1 Active 41868869 Problem History of lupus Z87.39 Active 788018323 Problem Gastroesophageal reflux disease without esophagitis K21.9 Active 695174692 Problem Menopausal syndrome (hot flashes) N95.1 Active 979051018 Problem Other allergic rhinitis J30.89 Active 039599233 Problem Primary insomnia F51.01 Active 1825724 Problem DM neuro manif type II E11.49 Active 40825067 ALLERGIES No Information ENCOUNTERS Encounter Location Date Diagnosis [facility] [id number] [place] [address] 74915- 7584 Jan, [facility] [id number] [place] [address] 03536- 0163 Jan, [facility] [address] 99109- 7425 Jan, [place] [address] 11720- 0340 Jan, [facility] [id number] [place] [address] 65620- 4487 Jan, [facility] [id number] [place] [address] 56838- 3095 27 Dec, 2017 [facility] [id number] [place] [address] 94210- 1891 Dec, Schizoaffective disorder, depressive type F25.1 and BMI 45.0 -49.9, adult Z68.42 [place] [id number] [place] [address] 63848- 2328 Dec, [place] [id number] [place] [address] 02913- 5753 Dec, [facility] [id number] [place] [address] 39025- 0069 Dec, Acute non-recurrent frontal sinusitis J01.10 [place] [id number] [place] [address] 80628- 3073 18 Dec, 2017 Acute non-recurrent frontal sinusitis J01.10 ; Weakness of left leg R29.898 ; At high risk for falls Z91.81 and BMI 45.0-49.9, adult Z68.42 [place] [address] [address] 1708 17 Dec, 2017 [facility] [id number] [place] [address] 18225- 5249 Dec, [facility] [id number] [place] [address] 37316- 3706 Dec, Schizoaffective disorder, depressive type F25.1 [facility] [id number] [place] [address] 47918 -8838 Dec, Acute nasopharyngitis J00 [facility] [id number] [place] [address] 84161- 5896 Dec, Schizoaffective disorder, depressive type F25.1 [facility] [id number] [place] [address] 22233- 4563 Dec, [facility] [id number] [place] [address] 64794- 8831 Nov, Schizoaffective disorder, depressive type F25.1 and BMI 45.0 -49.9, adult Z68.42 [facility] [id number] [place] [address] 58064- 5912 Nov, [facility] [id number] [place] [address] 61810- 1545 Nov, [facility] [id number] [place] [address] 90207- 4509 Nov, Schizoaffective disorder, depressive type F25.1 [facility] [address] [place] [address] 83565- 6557 Nov, Well woman exam Z01.419 ; BMI 45.0-49.9, adult Z68.42 ; Screening breast examination Z12.31 and Dietary counseling and surveillance Z71.3 [facility] [address] [place] [address] 58627- 1351 Nov, Paranoid schizophrenia F20.0 [facility] [address] [place] [address] 54211- 5601 Nov, Gastroesophageal reflux disease, esophagitis presence not specified K21.9 [place] [id number] [place] [address] 93025- 1987 Oct, Paranoid schizophrenia F20.0 [place] [address] [id number] [address] Oct Chronic pain syndrome G89.4 and Schizoaffective disorder, depressive type F25.1 [place] [address] [place] [address] 09104- 0313 Oct, Chronic pain syndrome G89.4 and Schizoaffective disorder, depressive type F25.1 [place] [id number] [place] [address] 68458- 5513 Oct, Type 2 diabetes mellitus without complication, without long- term current use of insulin E11.9 [place] [id number] [place] [address] 01326- 8360 Oct, Essential hypertension I10 and DM neuro manif type II E11.49 [place] [id number] [place] [address] 71474- 4133 Oct, [place] [id number] [place] [address] 01814- 0390 Oct, Schizoaffective disorder, depressive type F25.1 and BMI 45.0 -49.9, adult Z68.42 [place] [id number] [place] [address] 24061- 8646 Oct, [place] [id number] [place] [address] 31276- 0339 Oct, Paranoid schizophrenia F20.0 [place] [id number] [place] [address] 08784- 9301 Oct, Type 2 diabetes mellitus with diabetic neuropathic arthropathy, 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 ; Essential hypertension I10 ; Hypothyroidism (acquired) E03.9 ; Chronic obstructive pulmonary disease, unspecified COPD type J44.9 and Diabetic polyneuropathy associated with type 2 diabetes mellitus E11.42 [facility] [id number] [place] [address] 24091- 1559 Sep, Paranoid schizophrenia F20.0 [facility] [id number] [place] [address] 30770- 6122 Sep, Paranoid schizophrenia F20.0 and BMI 45.0-49.9, adult Z68.42 [facility] [id number] [place] [address] 40975- 2984 Sep, Schizoaffective disorder, depressive type F25.1 [facility] [id number] [place] [address] 66819- 7772 Sep, [facility] [id number] [place] [address] 69739- 3651 Sep, Paranoid schizophrenia F20.0 [facility] [id number] [place] [address] 00510- 5517 Sep, [facility] [id number] [place] [address] 94963- 4956 Sep, Hypothyroidism (acquired) E03.9 [facility] [id number] [place] [address] 53543- 8799 Sep, [facility] [id number] [place] [address] 89156- 2015 August, Schizoaffective disorder, depressive type F25.1 [facility] [id number] [place] [address] 65290- 2715 August, [facility] [id number] [place] [address] 85618- 1946 August, [facility] [id number] [place] [address] 15007- 8067 August, [facility] [id number] [place] [address] 08663- 4257 August, Paranoid schizophrenia F20.0 [place] [id number] [place] [address] 32716- 4584 August, History of lupus Z87.39 and Chronic pain syndrome G89.4 [place] [id number] [place] [address] 60352- 9052 August, [facility] [place] [address] 67563 -0202 August, Seasonal allergic rhinitis, unspecified trigger J30.2 and BMI 45.0-49.9, adult Z68.42 [place] [address] 66821- 5998 Jul, Schizoaffective disorder, depressive type F25.1 [place] [address] 35571- 0789 Jul, [place] [address] 90853- 9975 Jul, Hypothyroidism (acquired) E03.9 [place] [id number] [place] [address] 77709- 4237 Jul, Chronic obstructive pulmonary disease, unspecified COPD type J44.9 and Type 2 diabetes mellitus without complication, without long-term current use of insulin E11.9 [place] [id number] [place] [address] 67627- 2869 Jul, Paranoid schizophrenia F20.0 [place] [id number] [place] [address] 35044- 4240 Jun, Hypothyroidism (acquired) E03.9 and Seasonal allergic rhinitis due to pollen J30.1 [facility] [place] [id number] [place] [address] 53041 -6150 Jun, Shortness of breath at rest R06.02 ; COPD exacerbation J44.1 and BMI 45.0-49.9, adult Z68.42 [place] [id number] [place] [address] 19380- 3676 Jun, [facility] [address] 27426- 7541 Jun, Paranoid schizophrenia F20.0 ; Depression with anxiety F41.8 and BMI 45.0-49.9, adult Z68.42 [facility] [address] 91373- 8624 Jun, Schizoaffective disorder, depressive type F25.1 [facility] [id number] [place] [address] [id number] Jun, Dental caries K02.9 [facility] [address] 15255- 5002 Jun, Paranoid schizophrenia F20.0 [place] [address] 87354- 0676 May, Migraine without aura and without status migrainosus, not intractable G43.009 ; DM neuro manif type II E11.49 and Type 2 diabetes mellitus without complication, without long-term current use of insulin E11.9 [facility] [id number] [place] [address] 70385- 0934 May, Migraine without aura and without status migrainosus, not intractable G43.009 [facility] [id number] [place] [address] 75196- 8835 May, Depression with anxiety F41.8 [facility] [address] [place] [address] [id number] May, [facility] [address] 70194- 0021 May, [facility] [id number] [place] [address] 18413- 8462 May, [facility] [address] 38023- 3495 May, Hypothyroidism (acquired) E03.9 [facility] [id number] [place] [address] 71691- 4430 May, Paranoid schizophrenia F20.0 [facility] [id number] [place] [address] 04865- 2224 08 May, 2017 Type 2 diabetes mellitus [...] N32.81 and Controlled substance agreement signed Z79.899 [place] [address] 82401- 9296 02 May, 2017 Controlled substance agreement signed Z79.899 [place] [address] 78181- 8206 Apr, [facility] [address] [id number] Apr, Dental examination Z01.20 [place] [id number] [place] [address] 37488- 7062 Apr, Paranoid schizophrenia F20.0 [facility] [address] 94154- 2185 Apr, Hypertension, unspecified type I10 [facility] [id number] [place] [address] 43227- 8599 Apr, Paranoid schizophrenia F20.0 [place] [address] 42226- 4249 Apr, [place] [id number] [place] [address] 17440- 4685 Apr, Tobacco abuse Z72.0 [facility] [address] 22226- 3829 Apr, [facility] [id number] [place] [address] 08380- 3096 Mar, [facility] [address] 21017- 5117 Mar, Paranoid schizophrenia F20.0 and BMI 45.0-49.9, adult Z68.42 [facility] [address] 92388- 9614 Mar, Schizoaffective disorder, depressive type F25.1 [facility] [id number] [place] [address] 19853- 7592 Mar, [facility] [id number] [place] [address] 15636- 0167 Mar, Hypothyroidism, unspecified type E03.9 [facility] [id number] [place] [address] 86883- 9086 Mar, Schizoaffective disorder, depressive type F25.1 [facility] [id number] [place] [address] 26966 -0316 Feb, Gastroenteritis K52.9 and BMI 45.0-49.9, adult Z68.42 [facility] [id number] [place] [address] 95500- 4565 Feb, [facility] [id number] [place] [address] 05566- 3325 Feb, [facility] [id number] [place] [address] 88524- 2755 Feb, [facility] [id number] [place] [address] 23313- 5794 Feb, [place] [address] 33829- 4517 Feb, Paranoid schizophrenia F20.[address] 08644- 8554 Feb, Gastroesophageal reflux disease without esophagitis K21.9 ; Other seasonal allergic rhinitis J30.2 ; Other allergic rhinitis J30.89 ; Tobacco abuse Z72.0 and BMI 40.0-44.9, adult Z68.[address] 43818- 9214 Feb, Onychomycosis B35.1 ; Callus of foot L84 and DM neuro manif type II E11.[address] 33174- 7680 Jan, Chronic allergic rhinitis J30.[address] 04820- 9987 Jan, [address] 65641- 1861 Jan, Schizoaffective disorder, depressive type F25.[address] 78284- 3093 Jan, [facility] [address] [place] [address] 36829 -6141 Jan, Sore throat J02.9 and Seasonal allergic rhinitis due to other allergic trigger J30.89 [place] [address] 03350- 6866 Jan, [address] 96739- 4453 Jan, [facility] [address] [place] [address] 56962 -1267 Jan, Chronic allergic rhinitis J30.[address] 12779- 7142 Dec, Paranoid schizophrenia F20.0 ; Primary insomnia F51.01 and Schizoaffective disorder, depressive type F25.1 [facility] [id number] [place] [address] 82307- 7256 Dec, Chronic pain syndrome G89.4 ; Cervicalgia of occipito- atlanto-axial region M54.2 ; Menopausal syndrome (hot flashes) N95.1 and Encounter for immunization Z23 [facility] [id number] [place] [address] 45654- 4662 14 Dec, 2016 [facility] [id number] [place] [address] 46873- 3086 Dec, [place] [id number] [place] [address] 29994- 2862 08 Dec, 2016 Paranoid schizophrenia F20.0 [place] [id number] [place] [address] 87392- 3934 Dec, Schizoaffective disorder, depressive type F25.1 [place] [id number] [place] [address] 47584- 7418 Nov, Hypothyroidism, unspecified type E03.9 [facility] [id number] [place] [address] 33312 -2332 Nov, Acute seasonal allergic rhinitis due to other allergen J30.89 [facility] [id number] [place] [address] 94929- 2434 Nov, [place] [id number] [place] [address] 88087- 5977 Nov, Hypothyroidism, unspecified type E03.9 and Other elevated white blood cell (WBC) count D72.828 [place] [address] [place] [address] 68862- 3244 Nov, Schizoaffective disorder, depressive type F25.1 [facility] [id number] [place] [address] 08353- 2034 Nov, Paranoid schizophrenia F20.0 [place] [address] [address]- 3860 Nov, Type 2 diabetes mellitus without complication, without long- term current use of insulin E11.9 ; Morbid obesity due to excess calories E66.01 and Chronic pain syndrome G89.4 [place] [id number] [place] [address] 59752- 7949 Oct, Paranoid schizophrenia F20.0 [place] [id number] [place] [address] 82978- 7550 Oct, [place] [id number] [place] [address] 69216- 7441 Oct, Schizoaffective disorder, depressive type F25.1 [place] [id number] [place] [address] 44114- 2345 Oct, Hypothyroidism, unspecified type E03.9 and Other elevated white blood cell (WBC) count D72.828 [place] [id number] [place] [address] 39845- 2011 Oct, Morbid obesity due to excess calories E66.01 ; Chronic obstructive pulmonary disease, unspecified COPD type J44.9 ; History of lupus Z87.39 ; Hypothyroidism, unspecified type E03.9 ; Gastroesophageal reflux disease without esophagitis K21.9 ; Primary insomnia F51.01 and Chronic pain syndrome G89.4 [place] [address] [place] [address] 57288- 5221 Sep, [place] [id number] [place] [address] 18123- 7656 Sep, [place] [id number] [place] [address] 21019- 8454 Sep, [place] [id number] [place] [address] 55951- 1321 Sep, Paranoid schizophrenia F20.0 [place] [address] [address]- 9837 Sep, [facility] [id number] [place] [address] 35474- 5983 Sep, Paranoid schizophrenia F20.0 [facility] [id number] [place] [address] 77557- 7782 Sep, [facility] [id number] [place] [address] 71624- 2434 August, Paranoid schizophrenia F20.0 [facility] [id number] [place] [address] 71660- 3053 Jul, [facility] [id number] [place] [address] 88545- 6941 Jul, Type 2 diabetes mellitus without complication, without long- term current use of insulin E11.9 ; Morbid obesity due to excess calories E66.01 ; Depression with anxiety F41.8 ; Hypothyroidism, unspecified type E03.9 ; Seasonal allergic rhinitis due to other allergic trigger J30.89 ; Pain, dental K08.89 and Gastroesophageal reflux disease without esophagitis K21.9 [facility] [address] [place] [id number] [place] [address] [id number] Jul, Dental examination Z01.20 [facility] [address] [place] [address] 80303- 9256 07 Jul, 2016 Paranoid schizophrenia F20.0 [facility] [address] [place] [address] 96656- 4526 13 Jun, 2016 Paranoid schizophrenia F20.0 and Depression with anxiety F41.8 [facility] [address] [place] [address] 70788- 8630 Jun, Paranoid schizophrenia F20.0 and Depression with anxiety F41.8 [facility] [address] [place] [address] 13828- 6597 09 Jun, 2016 [facility] [id number] [place] [address] 55779- 4341 08 Jun, 2016 [facility] [id number] [place] [address] 25916 -3676 08 Jun, 2016 Seasonal allergic rhinitis due to other allergic trigger J30.89 [facility] [id number] [place] [address] 65450 -5018 May, Sore throat J02.9 ; Other viral agents as the cause of diseases classified elsewhere B97.89 and Acute upper respiratory infection, unspecified J06.9 [facility] [id number] [place] [address] 91446- 7074 08 May, 2016 Paranoid schizophrenia F20.0 and Depression with anxiety F41.8 [place] [address] 19666- 8543 Apr, Other seasonal allergic rhinitis J30.2 [place] [address] 25693- 8835 Apr, Paranoid schizophrenia F20.0 and Depression with anxiety F41.8 [facility] [place] [address] [address] [id number] [place] [address] 26220 -2041 Apr, Bronchitis J40 and Sore throat J02.9 [place] [address] [place] [address] [id number] [place] [address] 28832- 2240 Apr, Type 2 diabetes mellitus without complication, without long- term current use of insulin E11.9 [facility] [id number] [place] [address] 96404 -2904 Apr, Bronchitis J40 [place] [address] [address] [id number] [place] [address] 22585- 5986 Apr, [place] [address] 33101- 1477 Apr, [place] [address] [address] [id number] [place] [address] 27984- 2415 Mar, Type 2 diabetes mellitus without complication, [...] R60.9 and Other seasonal allergic rhinitis J30.2 [place] [address] 14568- 1302 Mar, Paranoid schizophrenia F20.0 and Depression with anxiety F41.8 [place] [address] [address] Feb, [place] [address] [address] Feb, [place] [address] [address] Feb, [place] [address] [address] Feb, [place] [address] [address] Feb, Type 2 diabetes mellitus without complication, without long- term current use of insulin E11.9 ; ARIAS on CPAP G47.33 and Preoperative evaluation to rule out surgical contraindication Z01.818 [place] [address] [address] [place] [id number] [place] [address]- 2402 Feb, Paranoid schizophrenia F20.0 and Depression with anxiety F41.8 [place] [address] [place] [id number] [place] [address] 10[address]- [address]188 Jan, [place] [address] [address] Jan, Paranoid schizophrenia F20.0 and Depression with anxiety F41.8 [place] [address] [address]- [address] Jan, [place] [address] [address] [address] 14 Jan, 2016 Muscle strain T14.8 [facility] [id number] [place] [address] 12273- 7134 Jan, Paranoid schizophrenia F20.0 [facility] [id number] [place] [address] 60857- 7334 Jan, [facility] [id number] [place] [address] 84212- 6400 Jan, Paranoid schizophrenia F20.0 and Depression with anxiety F41.8 [facility] [id number] [place] [address] 23219- 7721 Jan, [facility] [id number] [place] [address] 86686- 0946 Jan, [facility] [id number] [place] [address] 41568- 1905 28 Dec, 2015 [facility] [id number] [place] [address] 37590- 4129 23 Dec, 2015 Paranoid schizophrenia F20.0 [facility] [id number] [place] [address] 28846- 0100 16 Dec, 2015 Paranoid schizophrenia F20.0 and Depression with anxiety F41.8 [facility] [id number] [place] [address] 19027- 0843 Nov, [facility] [id number] [place] [address] 50549- 6130 Nov, Paranoid schizophrenia F20.0 [facility] [id number] [place] [address] 82792- 6127 Nov, Paranoid schizophrenia F20.0 and Depression with anxiety F41.8 [facility] [address], [place] [address] 5[address] Nov, Type 2 diabetes mellitus without complication, without long- term current use of insulin E11.9 ; Paranoid schizophrenia F20.0 ; Chronic obstructive pulmonary disease, unspecified COPD type J44.9 ; Morbid obesity due to excess calories E66.01 and Parkinsonian tremor G20 [facility] [id number] [place] [address] 56129- 6766 Nov, [facility] [id number] [place] [address] 98636- 0333 Oct, Paranoid schizophrenia F20.0 [facility] [address] 70828- 3668 Oct, Paranoid schizophrenia F20.0 [facility] [address] 77182- 2321 Oct, Paranoid schizophrenia F20.0 and Depression with anxiety F41.8 [facility] [address] 63556- 5669 Oct, [facility] [address] 53778- 6988 Oct, Paranoid schizophrenia F20.0 and Depression with anxiety F41.8 [facility] [id number] [place] [address] 43802- 3281 Oct, Nasal sore J34.89 [facility] [id number] [place] [address] 60331- 1330 Oct, Type 2 diabetes mellitus without complication, without long- term current use of insulin E11.9 ; Depression with anxiety F41.8 ; Hypothyroidism, unspecified type E03.9 and History of lupus Z87.39 [facility] [id number] [place] [address] 77623- 8530 Oct, [facility] [id number] [place] [address] 97443- 0387 Oct, Type 2 diabetes mellitus without complication, [...] edema R60.9 and History of lupus Z87.39 [facility] [address] 03669- 0220 Feb, [facility] [address] 59487- 9535 Jan, [facility] [address] 98415- 8357 Jan, [facility] [address] 87528- 9411 Jan, [facility] [address] 01717- 4111 Dec, [facility] [id number] [place] [address] 64936- 0218 Nov, [facility] [address] 98613- 2570 Nov, [facility] [id number] [place] [address] 72910- 9499 Oct, [facility] [id number] [place] [address] 10776- 6450 Oct, [facility] [id number] [place] [address] 59466- 5856 Oct, [facility] [address] 95897- 7779 Sep, Allergic rhinitis 477.9 [facility] [id number] [place] [address] 04165- 9247 Sep, Rhinitis, allergic 477.9 [facility] [address] 34631- 1444 Sep, Rhinitis, allergic 477.9 [facility] [address] [id number] [place] [address]- 0899 Sep, [facility] [address] [id number] [place] [address]- 7486 August, [facility] [address] [id number] [place] [address]- 7418 August, [facility] [address] [id number] [place] [address]- 6416 August, [facility] [address] [id number] [place] [address]- 8894 Jul, [facility] [address] [id number] [place] [address]- 4205 Jul, [facility] [address] [place] [address]- 6497 Jul, [facility] [address] [facility] [place] [place] [id number] [place] [address]- 4149 Jun, [facility] [address] [place] [address]- 4194 Jun, [facility] [address] [id number] [place] [address]- 9604 Jun, [facility] [address] [facility] [place] [place] [id number] [place] [address]- 2437 Jun, [facility] [address] [facility] [place] [place] [id number] [place] [address]- 1963 Jun, [facility] [place] [facility] [address] [facility] [place] [id number] [place] [address]- 1724 Jun, [facility] [address] [facility] [place] [place] [id number] [place] [address]- 8632 Jun, [facility] [address] [facility] [place] [id number] [place] 8419 Jun, [facility] [place] [facility] [address] [id number] [place] [address]- 7037 May, 2014 [facility] [place] [facility] [address] [id number] [place] [address]- 2356 May, 2014 [facility] [place] [facility] [address] [id number] [place] [address]- 7149 May, 2014 [facility] [place] [facility] [address] [id number] [place] [address]- 1768 May, 2014 [facility] [place] [facility] [address] [id number] [place] [address]- 8156 Apr, [facility] [place] [facility] [address] [id number] [place] [address]- 6853 Mar, [facility] [place] [facility] [address] [id number] [place] [address]- 4158 Mar, [facility] [place] [facility] [address] [id number] [place] [address]- 7695 Mar, [facility] [place] [facility] [address] [id number] [place] [address]- 3654 Mar, [facility] [place] [facility] [address] [id number] [place] [address]- 2374 Mar, [facility] [place] [facility] [address] [id number] [place] [address]- 4648 Mar, [facility] [place] [facility] [address] [id number] [address]- 6341 Mar, [facility] [place] [facility] [address] [id number] [place] [address]- 0546 Mar, [facility] [place] [facility] [address] [id number] [place] [address]- 4002 Mar, [facility] [place] [facility] [address] [id number] [place] [address]- 1700 Feb, [facility] [place] [facility] [address] [id number] [place] [address]- 1194 20 Feb, 2014 [facility] [place] [facility] [address] [id number] [place] [address]- 9832 17 Feb, 2014 [facility] [place] [facility] [address] [id number] [place] [address]- 9641 17 Feb, 2014 [facility] [place] [facility] [address] [id number] [place] [address]- 6730 14 Feb, 2014 [facility] [place] [facility] [address] [id number] [place] [address]- 7645 14 Feb, 2014 [facility] [place] [facility] [address] [id number] [place] [address]- 7790 Feb, [facility] [place] [facility] [address] [id number] [place] [address]- 3580 Feb, [facility] [place] [facility] [address] [id number] [place] [address]- 1434 23 Jan, 2014 [facility] [place] [facility] [address] [id number] [place] [address]- 8987 23 Jan, 2014 [facility] [place] [facility] [address] [id number] [place] [address]- 2384 16 Jan, 2014 [facility] [place] [facility] [address] [id number] [place] [address]- 5938 16 Jan, 2014 [facility] [place] [facility] [address] [id number] [place] [address]- 6367 15 Jan, 2014 [facility] [place] [facility] [address] [id number] [place] [address]- 4353 15 Jan, 2014 [facility] [place] [facility] [address] [id number] [place] [address]- 2833 14 Jan, 2014 [facility] [place] [facility] [address] [id number] [place] [address]- 2768 14 Jan, 2014 [facility] [place] [facility] [address] [id number] [place] [address]- 7285 14 Jan, 2014 [facility] [place] [facility] [address] [id number] [place] [address]- 3915 Jan, [facility] [place] [facility] [address] [id number] [place] [address]- 0388 Dec, [facility] [place] [facility] [address] [id number] [place] [address]- 1979 Dec, [facility] [place] [facility] [address] [id number] [place] [address]- 0503 Dec, [facility] [place] [facility] [address] [id number] [place] [address]- 0225 Dec, [facility] [place] [facility] [address] [id number] [place] [address]- 4558 Nov, [facility] [place] [facility] [address] [id number] [place] [address]- 7670 Nov, [facility] [place] [facility] [address] [id number] [place] [address]- 9966 Nov, [facility] [place] [facility] [address] [id number] [place] [address]- 6542 Nov, [facility] [place] [facility] [address] [id number] [place] [address]- 2964 Nov, [facility] [place] [facility] [address] [id number] [place] [address]- 0875 Oct, [facility] [place] [facility] [address] [id number] [place] [address]- 5030 Oct, [facility] [place] [facility] [address] [id number] [place] [address]- 8692 Oct, [facility] [place] [facility] [address] [id number] [place] [address]- 3686 Oct, [facility] [place] [facility] [address] [id number] [place] [address]- 8272 Sep, [facility] [place] [facility] [address] [id number] [place] [address]- 4864 Sep, [facility] [place] [facility] [address] [id number] [place] [address]- 9514 Sep, [facility] [place] [facility] [address] [id number] [place] [address]- 5470 Sep, [facility] [place] [facility] [address] [id number] [place] [address]- 7223 Sep, [facility] [place] [facility] [address] [id number] [place] [address]- 1508 Sep, [facility] [place] [facility] [address] [id number] [place] [address]- 3038 Sep, [facility] [place] [facility] [address] [id number] [place] [address]- 4443 Sep, [facility] [place] [facility] [address] [id number] [place] [address]- 3536 August, [facility] [place] [facility] [address] [id number] [place] [address]- 9667 August, [facility] [place] [facility] [address] [id number] [place] [address]- 3372 August, [facility] [place] [facility] [address] [id number] [place] [address]- 4950 August, [facility] [place] [facility] [address] [id number] [place] [address]- 2776 August, [facility] [place] [facility] [address] [id number] [place] [address]- 0217 August, [facility] [place] [facility] [address] [id number] [place] [address]- 9311 August, [facility] [place] [facility] [address] [id number] [place] [address]- 3638 Jul, [facility] [place] [facility] [address] [id number] [place] [address]- 9208 Jul, [facility] [place] [facility] [address] [id number] [place] [address]- 5162 Jul, [facility] [address] [id number] [place] [address]- 6535 Jul, [facility] [place] [facility] [address] [id number] [place] [address]- 9950 Jul, [facility] [address] [id number] [place] [address]- 3299 Jul, [facility] [place] [facility] [address] [id number] [place] [address]- 1026 Jul, [facility] [address] [id number] [place] [address]- 3225 Jul, [facility] [address] [id number] [place] [address]- 7522 Jul, [facility] [place] [facility] [address] [id number] [place] [address]- 9081 Jul, [facility] [address] [id number] [place] [address]- 6449 Jul, [facility] [place] [facility] [address] [id number] [place] [address]- 9384 Jul, [facility] [address] [id number] [place] [address]- 3479 Jun, [facility] [place] [facility] [address] [id number] [place] [address]- 7037 Jun, [facility] [place] [facility] [address] [id number] [place] [address]- 7649 Jun, [facility] [place] [facility] [address] [id number] [place] [address]- 0730 Jun, [facility] [place] [facility] [address] [id number] [place] [address]- 5432 Jun, [facility] [place] [facility] [address] [id number] [place] [address]- 0503 May, [facility] [place] [facility] [address] [id number] [place] [address]- 2161 May, 2013 [facility] [place] [facility] [address] [id number] [place] [address]- 1426 May, [facility] [place] [facility] [address] [id number] [place] [address]- 8736 May, [facility] [place] [facility] [address] [id number] [place] [address]- 0973 May, [facility] [place] [facility] [address] [id number] [place] [address]- 2447 May, [facility] [place] [facility] [address] [id number] [place] [address]- 0949 May, [facility] [place] [facility] [address] [facility] [place] [id number] [place] [address]- 9002 May, [facility] [place] [facility] [address] [id number] [place] [address]- 8260 Mar, [facility] [place] [facility] [address] [id number] [place] [address]- 6658 Mar, [facility] [place] [facility] [address] [facility] [place] [id number] [place] [address]- 1621 Mar, [facility] [place] [facility] [address] [facility] [place] [id number] [place] [address]- 7283 Mar, [facility] [place] [facility] [address] [id number], [place] [address]- 1365 Mar, [facility] [place] [facility] [address] [id number] [place] [address]- 9665 Mar, [facility] [place] [facility] [address] [facility] [place] [place] [id number] [place] [address]- 1022 Feb, [facility] [place] [facility] [address] [facility] [place] [id number] [place] [address]- 5669 Feb, [facility] [place] [facility] [address] [id number] [place] [address]- 8027 Jan, 2012 [facility] [address] [id number] [place] [address]- 9744 Jan, [facility] [place] [facility] [address] [id number] [place] 9334 Jan, [facility] [address] [id number] [place] [address]- 2838 Jan, [facility] [place] [facility] [address] [id number] [place] [address]- 7372 Jan, 2012 [facility] [address] [id number] [place] [address]- 5082 Jan, [facility] [place] [facility] [address] [id number] [place] [address]- 6599 Jan, [facility] [place] [facility] [address] [id number] [place] [address]- 8308 Jan, [facility] [address] [id number] [place] [address]- 3721 Jan, [facility] [place] [facility] [address] [id number] [place] [address]- 7059 Jan, [facility] [address] [id number] [place] [address]- 2055 Dec, [facility] [place] [facility] [address] [id number] [place] [address]- 4984 Nov, [facility] [place] [facility] [address] [id number] [place] [address]- 6228 Nov, [facility] [place] [facility] [address] [id number] [place] [address]- 3007 Nov, [facility] [place] [facility] [address] [id number] [place] [address]- 9124 Oct, [facility] [place] [facility] [address] [id number] [place] [address]- 9159 Oct, [facility] [address] [id number] [address]- 1869 August, [facility] [address] [address]- 5709 Apr, [facility] [address] [id number] [address]- 4932 Apr, [facility] [address], [place] [address]- 1628 Feb, [facility] [address] [address]- 1350 Feb, [facility] [address], [place] [address]- 6700 Dec, [facility] [address] [address]- 4384 Dec, [facility] [address], [place] [address]- 8857 Oct, [facility] [address], [place] [address]- 6845 Oct, [facility] [address] [id number] [address]- 8673 Oct, [facility] [address] [id number] [address]- 8969 Jul, IMMUNIZATIONS No Known Immunizations SOCIAL HISTORY Never Assessed REASON FOR VISIT Follow-up PLAN OF CARE Activity Details Follow Up 4 Weeks Reason: Follow-up VITAL SIGNS MEDICATIONS Unknown Medications RESULTS No Results PROCEDURES Procedure Date Ordered Result Body Site REPLACED BY [facility] VISIT MENTAL HEALTH ESTAB PT Dec 29, 2017 Psychotherapy, patient &/family, 30 minutes, established patient Dec 29, 2017 INSTRUCTIONS MEDICATIONS ADMINISTERED No Known Medications [...] for psychosis/mental illness , last one in [place] at [facility] 4 years ago
--- OUTSIDE RECORDS SUMMARY | 2018-09-02 13:24 | XMS REPORT ---
Author Author SOTO STRICKLAND Organization [facility] Address [address] [place] [address] Care Team Providers Care Streetcar Operator Name Role Phone SOTO STRICKLAND Unavailable PROBLEMS Type Condition ICD9-CM Code GGL67-WK Code Onset Dates Condition Status SNOMED Code Problem OAB (overactive bladder) N32.81 Active 444482153 Problem Depression with anxiety F41.8 Active 379930066 Problem Other seasonal allergic rhinitis J30.2 Active 459900626 Problem Chronic obstructive pulmonary disease, unspecified COPD type J44.9 Active 59095042 Problem Tobacco abuse Z72.0 Active 015295883 Problem Morbid obesity due to excess calories E66.01 Active 723243713 Problem Dyslipidemia E78.5 Active 206954846 Problem Hypothyroidism (acquired) E03.9 Active 176343698 Problem Essential hypertension I10 Active 57150164 Problem Diabetic polyneuropathy associated with type 2 diabetes mellitus E11.42 Active 285785779 Problem Type 2 diabetes mellitus with diabetic neuropathic arthropathy, 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 Active 771069017 Problem Type 2 diabetes mellitus without complication, without long-term current use of insulin E11.9 Active 597421493 Problem Paranoid schizophrenia F20.0 Active 75325586 Problem Chronic pain syndrome G89.4 Active 873410385 Problem Migraine without aura and without status migrainosus, not intractable G43.009 Active 359660681 Problem Gastroesophageal reflux disease, esophagitis presence not specified K21.9 Active 167033627 Problem Seasonal allergic rhinitis due to pollen J30.1 Active 81329851 Problem COPD exacerbation J44.1 Active 396606456 Problem Seasonal allergic rhinitis due to other allergic trigger J30.89 Active 851988152 Problem Schizoaffective disorder, depressive type F25.1 Active 70927119 Problem History of lupus Z87.39 Active 296172166 Problem Gastroesophageal reflux disease without esophagitis K21.9 Active 587083579 Problem Menopausal syndrome (hot flashes) N95.1 Active 576059287 Problem Other allergic rhinitis J30.89 Active 438129080 Problem Primary insomnia F51.01 Active 0965943 Problem DM neuro manif type II E11.49 Active 72398165 ALLERGIES Substance Reaction Event Type Date Status Sulfamethoxazole-Trimethoprim Unknown Drug Allergy Nov, Active Penicillin V Potassium Unknown Drug Allergy Nov, Active ENCOUNTERS Encounter Location Date Diagnosis [place] [address] [place] [id number] [place] [address] 73347- 1020 Jan, [place] [address] 80141- 3320 Jan, [place] [address] 26713- 1099 Jan, [place] [address] 27449- 4022 Jan, [place] [address] 15420- 4361 Jan, [place] [address] [place] [id number] [place] [address] 23193- 7020 Dec, Schizoaffective disorder, depressive type F25.1 and BMI 45.0 -49.9, adult Z68.42 [place] [address] [place] [id number] [place] [address] 32871- 3909 Dec, [place] [address] [place] [id number] [place] [address] 82933- 7681 Dec, [place] [address] [address] [id number] [place] [address] 40762- 7724 Dec, Acute non-recurrent frontal sinusitis J01.10 [place] [address] [place] [address] [id number] [place] [address] 96396- 3445 Dec, Acute non-recurrent frontal sinusitis J01.10 ; At high risk for falls Z91.81 ; BMI 45.0-49.9, adult Z68.42 and Weakness of left leg R29.898 [place] [address] [place] [address] [place] [address] 4691 17 Dec, 2017 [facility] [id number] [place] [address] 94499- 9690 Dec, [facility] [id number] [place] [address] 92662- 0195 Dec, Schizoaffective disorder, depressive type F25.1 [facility] [id number] [place] [address] 55729 -5739 10 Dec, 2017 Acute nasopharyngitis J00 [facility] [id number] [place] [address] 17810- 4295 05 Dec, 2017 Schizoaffective disorder, depressive type F25.1 [facility] [id number] [place] [address] 19519- 1703 Dec, [facility] [id number] [place] [address] 32293- 1170 Nov, Schizoaffective disorder, depressive type F25.1 and BMI 45.0 -49.9, adult Z68.42 [facility] [id number] [place] [address] 91876- 7505 Nov, [facility] [id number] [place] [address] 11327- 3984 Nov, [facility] [id number] [place] [address] 40149- 8000 Nov, Schizoaffective disorder, depressive type F25.1 [facility] [id number] [place] [address] 65616- 4772 Nov, Well woman exam Z01.419 ; BMI 45.0-49.9, adult Z68.42 ; Screening breast examination Z12.31 and Dietary counseling and surveillance Z71.3 [facility] [id number] [place] [address] 78568- 0725 Nov, Paranoid schizophrenia F20.0 [facility] [address] [place] [address] [address] 7352 Nov, Gastroesophageal reflux disease, esophagitis presence not specified K21.9 [place] [id number] [place] [address] 08057- 3640 Oct, Paranoid schizophrenia F20.0 [place] [id number] [place] [address] Oct Chronic pain syndrome G89.4 and Schizoaffective disorder, depressive type F25.1 [place] [id number] [place] [address] 42383- 5733 Oct, Chronic pain syndrome G89.4 and Schizoaffective disorder, depressive type F25.1 [place] [address] [place] [address] [id number] [place] [address] 58245- 1844 Oct, Type 2 diabetes mellitus without complication, without long- term current use of insulin E11.9 [place] [address] [place] [id number] [place] [address] 78440- 1000 Oct, Essential hypertension I10 and DM neuro manif type II E11.49 [place] [id number] [place] [address] 13675- 6408 Oct, [place] [id number] [place] [address] 49412- 8354 Oct, Schizoaffective disorder, depressive type F25.1 and BMI 45.0 -49.9, adult Z68.42 [place] [address] [place] [id number] [place] [address] 07303- 2166 Oct, [place] [id number] [place] [address] 37605- 8534 Oct, Paranoid schizophrenia F20.0 [place] [address] [id number] [place] [address] 37167- 4103 Oct, Type 2 diabetes mellitus with diabetic neuropathic arthropathy, 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 ; Essential hypertension I10 ; Hypothyroidism (acquired) E03.9 ; Chronic obstructive pulmonary disease, unspecified COPD type J44.9 and Diabetic polyneuropathy associated with type 2 diabetes mellitus E11.42 [facility] [id number] [place] [address] 30766- 2759 Sep, Paranoid schizophrenia F20.0 [facility] [id number] [place] [address] 96565- 2829 Sep, Paranoid schizophrenia F20.0 and BMI 45.0-49.9, adult Z68.42 [facility] [address] 02201- 8124 Sep, Schizoaffective disorder, depressive type F25.1 [facility] [address] 20990- 6220 Sep, [facility] [address] 80753- 4857 Sep, Paranoid schizophrenia F20.0 [facility] [id number] [place] [address] 63411- 0713 Sep, [facility] [address] 67508- 2372 Sep, Hypothyroidism (acquired) E03.9 [facility] [id number] [place] [address] 36102- 0814 Sep, [facility] [id number] [place] [address] 95551- 1318 August, Schizoaffective disorder, depressive type F25.1 [facility] [id number] [place] [address] 48500- 7913 August, [facility] [id number] [place] [address] 03593- 4509 August, [facility] [id number] [place] [address] 57329- 8775 August, [facility] [address] 71933- 5366 August, Paranoid schizophrenia F20.0 [place] [id number] [place] [address] 95846- 8385 August, History of lupus Z87.39 and Chronic pain syndrome G89.4 [place] [id number] [place] [address] 97582- 7959 August, [facility] [place] [address] 65508 -4694 August, Seasonal allergic rhinitis, unspecified trigger J30.2 and BMI 45.0-49.9, adult Z68.42 [place] [address] 91369- 9440 Jul, Schizoaffective disorder, depressive type F25.1 [place] [address] 71255- 7206 Jul, [place] [address] 46833- 9078 Jul, Hypothyroidism (acquired) E03.[address] 52235- 8159 Jul, Chronic obstructive pulmonary disease, unspecified COPD type J44.9 and Type 2 diabetes mellitus without complication, without long-term current use of insulin E11.9 [place] [id number] [place] [address] 22703- 8884 Jul, Paranoid schizophrenia F20.0 [place] [id number] [place] [address] 43903- 8727 Jun, Hypothyroidism (acquired) E03.9 and Seasonal allergic rhinitis due to pollen J30.1 [facility] [place] [id number] [place] [address] 46223 -4922 Jun, Shortness of breath at rest R06.02 ; COPD exacerbation J44.1 and BMI 45.0-49.9, adult Z68.42 [place] [address] [id number] [place] [address] 82105- 0871 Jun, [facility] [address] 76287- 8999 Jun, Paranoid schizophrenia F20.0 ; Depression with anxiety F41.8 and BMI 45.0-49.9, adult Z68.42 [facility] [address] 44738- 0048 Jun, Schizoaffective disorder, depressive type F25.1 [facility] [address] [id number] Jun, Dental caries K02.9 [facility] [address] 48934- 8308 Jun, Paranoid schizophrenia F20.0 [facility] [address] 65791- 4622 May, Migraine without aura and without status migrainosus, not intractable G43.009 ; DM neuro manif type II E11.49 and Type 2 diabetes mellitus without complication, without long-term current use of insulin E11.9 [facility] [id number] [place] [address] 24928- 4159 May, Migraine without aura and without status migrainosus, not intractable G43.009 [facility] [id number] [place] [address] 33418- 8800 May, Depression with anxiety F41.8 [facility] [address] [place] [id number] [place] [address] [id number] May, [facility] [id number] [place] [address] 46332- 3268 May, [facility] [id number] [place] [address] 90762- 6170 May, [facility] [address] 61412- 0941 May, Hypothyroidism (acquired) E03.9 [facility] [address] 63791- 7945 May, Paranoid schizophrenia F20.0 [facility] [address] 81168- 5360 08 May, 2017 Type 2 diabetes mellitus [...] N32.81 and Controlled substance agreement signed Z79.899 [place] [address] 61091- 4501 May, Controlled substance agreement signed Z79.899 [place] [address] 10949- 3461 Apr, [facility] [address] [id number] Apr, Dental examination Z01.20 [place] [address] 89397- 6353 Apr, Paranoid schizophrenia F20.0 [facility] [address] 93152- 7583 Apr, Hypertension, unspecified type I10 [place] [address] 56110- 5016 Apr, Paranoid schizophrenia F20.0 [place] [address] 10772- 1807 Apr, [place] [address] [place] [id number] [place] [address] 58762- 5616 Apr, Tobacco abuse Z72.0 [facility] [address] 19341- 8114 Apr, [facility] [id number] [place] [address] 88237- 7860 Mar, [facility] [address] 26115- 2588 Mar, Paranoid schizophrenia F20.0 and BMI 45.0-49.9, adult Z68.42 [facility] [address] 02559- 6354 Mar, Schizoaffective disorder, depressive type F25.1 [facility] [id number] [place] [address] 84999- 0525 Mar, [facility] [id number] [place] [address] 44068- 2622 Mar, Hypothyroidism, unspecified type E03.9 [facility] [id number] [place] [address] 37628- 7409 Mar, Schizoaffective disorder, depressive type F25.1 [facility] [id number] [place] [address] 90640 -7859 Feb, Gastroenteritis K52.9 and BMI 45.0-49.9, adult Z68.42 [facility] [id number] [place] [address] 60660- 7329 Feb, [facility] [id number] [place] [address] 30410- 0254 Feb, [facility] [id number] [place] [address] 37476- 5213 Feb, [facility] [id number] [place] [address] 49153- 3556 Feb, [facility] [address] 29354- 1149 Feb, Paranoid schizophrenia F20.[address] 74007- 4812 Feb, Gastroesophageal reflux disease without esophagitis K21.9 ; Other seasonal allergic rhinitis J30.2 ; Other allergic rhinitis J30.89 ; Tobacco abuse Z72.0 and BMI 40.0-44.9, adult Z68.[address] 66253- 4437 Feb, Onychomycosis B35.1 ; Callus of foot L84 and DM neuro manif type II E11.[address] 26693- 9677 Jan, Chronic allergic rhinitis J30.[address] 93708- 7224 Jan, [address] 32850- 1382 Jan, Schizoaffective disorder, depressive type F25.[address] 17106- 9683 Jan, [facility] [address] [place] [address] 13747 -1135 Jan, Sore throat J02.9 and Seasonal allergic rhinitis due to other allergic trigger J30.89 [place] [id number] [place] [address] 72835- 5006 Jan, [address] 96915- 5199 Jan, [facility] [address] [place] [address] 34447 -2770 Jan, Chronic allergic rhinitis J30.[address] 44033- 3057 Dec, Paranoid schizophrenia F20.0 ; Primary insomnia F51.01 and Schizoaffective disorder, depressive type F25.1 [facility] [id number] [place] [address] 72074- 7055 Dec, Chronic pain syndrome G89.4 ; Cervicalgia of occipito- atlanto-axial region M54.2 ; Menopausal syndrome (hot flashes) N95.1 and Encounter for immunization Z23 [facility] [id number] [place] [address] 11924- 1461 14 Dec, 2016 [facility] [id number] [place] [address] 62835- 7486 Dec, [place] [address] 26342- 3314 Dec, Paranoid schizophrenia F20.0 [place] [address] [id number] [place] [address] 43891- 6937 Dec, Schizoaffective disorder, depressive type F25.1 [facility] [id number] [place] [address] 31243- 6997 Nov, Hypothyroidism, unspecified type E03.9 [facility] [id number] [place] [address] 83812 -9547 Nov, Acute seasonal allergic rhinitis due to other allergen J30.89 [facility] [address] [place] [id number] [place] [address] 25054- 8819 Nov, [place] [address] [place] [address] [id number] [place] [address] 28107- 4556 Nov, Hypothyroidism, unspecified type E03.9 and Other elevated white blood cell (WBC) count D72.828 [place] [address] [place] [id number] [place] [address] 77574- 7019 Nov, Schizoaffective disorder, depressive type F25.1 [facility] [address] [place] [id number] [place] [address] 85188- 5400 Nov, Paranoid schizophrenia F20.0 [place] [address] [address]- 5915 Nov, Type 2 diabetes mellitus without complication, without long- term current use of insulin E11.9 ; Morbid obesity due to excess calories E66.01 and Chronic pain syndrome G89.4 [place] [address] [place] [place] [id number] [place] [address] 83157- 7773 Oct, Paranoid schizophrenia F20.0 [place] [address] [place] [place] [id number] [place] [address] 35700- 8835 Oct, [place] [address] [place] [id number] [place] [address] 02675- 1928 Oct, Schizoaffective disorder, depressive type F25.1 [place] [address] [place] [id number] [place] [address] 58236- 5570 Oct, Hypothyroidism, unspecified type E03.9 and Other elevated white blood cell (WBC) count D72.828 [place] [address] [place] [id number] [place] [address] 00537- 7953 Oct, Morbid obesity due to excess calories E66.01 ; Chronic obstructive pulmonary disease, unspecified COPD type J44.9 ; History of lupus Z87.39 ; Hypothyroidism, unspecified type E03.9 ; Gastroesophageal reflux disease without esophagitis K21.9 ; Primary insomnia F51.01 and Chronic pain syndrome G89.4 [place] [address] [address]- 8782 Sep, [place] [address] [place] [id number] [place] [address] 90251- 0000 Sep, [place] [address] [place] [id number] [place] [address] 89002- 1328 Sep, [place] [address] [place] [id number] [place] [address] 30726- 4603 Sep, Paranoid schizophrenia F20.0 [place] [address] [place] [place] [id number] [place] [address] 69362- 6962 Sep, [facility] [id number] [place] [address] 28898- 5503 Sep, Paranoid schizophrenia F20.0 [facility] [id number] [place] [address] 14125- 8883 Sep, [facility] [address] [place] [place] [id number] [place] [address] 85386- 1661 August, Paranoid schizophrenia F20.0 [facility] [address] [place] [id number] [place] [address] 57030- 7154 Jul, [place] [address] [place] [id number] [place] [address] 26157- 8667 Jul, Type 2 diabetes mellitus without complication, without long- term current use of insulin E11.9 ; Morbid obesity due to excess calories E66.01 ; Depression with anxiety F41.8 ; Hypothyroidism, unspecified type E03.9 ; Seasonal allergic rhinitis due to other allergic trigger J30.89 ; Pain, dental K08.89 and Gastroesophageal reflux disease without esophagitis K21.9 [facility] [address] [place] [id number] [place] [address] [id number] Jul, Dental examination Z01.20 [place] [address] [place] [id number] [place] [address] 51461- 2548 Jul, Paranoid schizophrenia F20.0 [facility] [address] [place] [place] [id number] [place] [address] 27103- 1565 Jun, Paranoid schizophrenia F20.0 and Depression with anxiety F41.8 [facility] [id number] [place] [address] 79276- 2124 Jun, Paranoid schizophrenia F20.0 and Depression with anxiety F41.8 [facility] [id number] [place] [address] 86781- 5083 Jun, [facility] [address] [place] [place] [id number] [place] [address] 33934- 3544 08 Jun, 2016 [facility] [id number] [place] [address] 07992 -2673 Jun, Seasonal allergic rhinitis due to other allergic trigger J30.89 [facility] [id number] [place] [address] 13392 -[phone] 25 May, 2016 Sore throat J02.9 ; Other viral agents as the cause of diseases classified elsewhere B97.89 and Acute upper respiratory infection, unspecified J06.9 [place] [address] [place] [id number] [place] [address] 23156- 2346 08 May, 2016 Paranoid schizophrenia F20.0 and Depression with anxiety F41.8 [place] [address] [place] [id number] [place] [address] 18014- 3794 Apr, Other seasonal allergic rhinitis J30.2 [place] [address] 65096- 2504 Apr, Paranoid schizophrenia F20.0 and Depression with anxiety F41.8 [facility] [place] [address] [place] [id number] [place] [address] 75752 -6583 Apr, Bronchitis J40 and Sore throat J02.9 [place] [address] [place] [id number] [place] [address] 77798- 9613 Apr, Type 2 diabetes mellitus without complication, without long- term current use of insulin E11.9 [facility] [address] [id number] [place] [address] 86994 -8209 Apr, Bronchitis J40 [place] [address] [place] [id number] [place] [address] 35334- 1019 Apr, [place] [address] 94280- 4074 Apr, [place] [address] [place] [id number] [place] [address] 66073- 6509 Mar, Type 2 diabetes mellitus without complication, [...] R60.9 and Other seasonal allergic rhinitis J30.2 [place] [address] 73782- 6230 Mar, Paranoid schizophrenia F20.0 and Depression with anxiety F41.8 [place] [address] 36452- 7748 Feb, [place] [address] 43171- 1422 Feb, [place] [address] [place] [id number] [place] [address] 76479- 8947 Feb, [place] [address] 15891- 0875 Feb, [place] [address] [place] [id number] [place] [address] 35425- 0275 Feb, Type 2 diabetes mellitus without complication, without long- term current use of insulin E11.9 ; ARIAS on CPAP G47.33 and Preoperative evaluation to rule out surgical contraindication Z01.818 [place] [address] [place] [id number] [place] [address] 03863- 8524 Feb, Paranoid schizophrenia F20.0 and Depression with anxiety F41.8 [place] [address] [place] [id number] [place] [address] 81320- 5647 Jan, [place] [address] 67211- 1739 Jan, Paranoid schizophrenia F20.0 and Depression with anxiety F41.8 [place] [address] [place] [id number] [place] [address] [phone] Jan, [place] [id number] [address] 14 Jan, 2016 Muscle strain T14.8 [facility] [id number] [place] [address] [phone]- [phone] Jan, Paranoid schizophrenia F20.0 [facility] [id number] [place] [address] [phone] 07 Jan, 2016 [facility] [id number] [place] [address] [phone]- [phone] Jan, Paranoid schizophrenia F20.0 and Depression with anxiety F41.8 [facility] [id number] [place] [address] 40424- 2643 Jan, [facility] [id number] [place] [address] 83598- 9351 Jan, [facility] [id number] [place] [address] 72901- 1685 28 Dec, 2015 [facility] [id number] [place] [address] 40013- 9236 23 Dec, 2015 Paranoid schizophrenia F20.0 [facility] [id number] [place] [address] 47031- 0888 16 Dec, 2015 Paranoid schizophrenia F20.0 and Depression with anxiety F41.8 [facility] [address] [address] 5051 Nov, [facility] [id number] [place] [address] 39041- 2026 24 Nov, 2015 Paranoid schizophrenia F20.0 [facility] [address] [address] 9379 Nov, Paranoid schizophrenia F20.0 and Depression with anxiety F41.8 [facility] [address], [place] [address] 0199 05 Nov, 2015 Type 2 diabetes mellitus without complication, without long- term current use of insulin E11.9 ; Paranoid schizophrenia F20.0 ; Chronic obstructive pulmonary disease, unspecified COPD type J44.9 ; Morbid obesity due to excess calories E66.01 and Parkinsonian tremor G20 [address] [id number] [place] [address] 84480- 3279 Nov, [facility] [id number] [place] [address] 46264- 7772 Oct, Paranoid schizophrenia F20.0 [facility] [id number] [place] [address] 11918- 3809 Oct, Paranoid schizophrenia F20.0 [facility] [id number] [place] [address] 60736- 5764 Oct, Paranoid schizophrenia F20.0 and Depression with anxiety F41.8 [facility] [id number] [place] [address] 83302- 9188 Oct, [facility] [address] 79614- 9607 Oct, Paranoid schizophrenia F20.0 and Depression with anxiety F41.8 [facility] [id number] [place] [address] 04774- 7955 Oct, Nasal sore J34.89 [facility] [id number] [place] [address] 17131- 6741 Oct, Type 2 diabetes mellitus without complication, without long- term current use of insulin E11.9 ; Depression with anxiety F41.8 ; Hypothyroidism, unspecified type E03.9 and History of lupus Z87.39 [facility] [id number] [place] [address] 84262- 2837 Oct, [facility] [id number] [place] [address] 40887- 9274 Oct, Type 2 diabetes mellitus without complication, [...] edema R60.9 and History of lupus Z87.39 [facility] [id number] [place] [address] 62644- 4220 Feb, [facility] [id number] [place] [address] 91021- 9870 Jan, [facility] [address] 47490- 1201 Jan, [facility] [id number] [place] [address] 88743- 4527 Jan, [facility] [address] 46695- 0280 Dec, [facility] [id number] [place] [address] 59413- 8516 Nov, [facility] [id number] [place] [address] 11839- 1519 Nov, [facility] [id number] [place] [address] 60152- 0754 Oct, [facility] [id number] [place] [address] 02300- 2071 Oct, [facility] [id number] [place] [address] 79848- 4862 Oct, [facility] [id number] [place] [address] 73759- 9394 Sep, Allergic rhinitis 477.9 [facility] [id number] [place] [address] 33644- 2138 Sep, Rhinitis, allergic 477.9 [facility] [id number] [place] [address] 68415- 7492 Sep, Rhinitis, allergic 477.9 [facility] [address] [id number] [place] [address]- 6756 Sep, [facility] [address] [id number] [place] [address]- 1576 August, [facility] [address] [id number] [place] [address]- 2990 August, [facility] [address] [id number] [place] [address]- 6420 August, [facility] [address] [id number] [place] [address]- 2608 Jul, [facility] [address] [id number] [place] [address]- 9582 Jul, [facility] [address] [facility] [id number] [place] [address]- 0030 Jul, [facility] [address] [id number] [place] [address]- 4778 Jun, [facility] [address] [id number] [place] [address]- 8488 Jun, [facility] [address] [facility] [id number] [place] [address]- 2506 Jun, [facility] [address] [id number] [place] [address]- 3235 Jun, [facility] [place] [facility] [address] [id number] [place] [address]- 2633 Jun, [facility] [place] [facility] [address] [id number] [place] [address]- 5014 Jun, [facility] [place] [facility] [address] [facility] [id number] [place] 1322 Jun, [facility] [place] [facility] [address] [id number] [place] 5592 Jun, [facility] [place] [facility] [address] [id number] [place] [address]- 4067 May, 2014 [facility] [place] [facility] [address] [id number] [place] 7726 May, 2014 [facility] [place] [facility] [address] [id number] [place] 3946 May, 2014 [facility] [place] [facility] [address] [id number] [place] [address]- 2696 May, 2014 [facility] [place] [facility] [address] [id number] [place] [address]- 7817 Apr, [facility] [place] [facility] [address] [id number] [place] [address]- 1651 Mar, [facility] [place] [facility] [address] [id number] [place] [address]- 4082 Mar, [facility] [place] [facility] [address] [id number] [place] [address]- 6169 Mar, [facility] [place] [facility] [address] [id number] [place] [address]- 9323 Mar, [facility] [place] [facility] [address] [id number] [place] [address]- 6091 Mar, [facility] [place] [facility] [address] [id number] [place] [address]- 0593 Mar, [facility] [place] [facility] [address] [id number] [place] [address]- 6532 Mar, [facility] [place] [facility] [address] [id number] [place] [address]- 2476 Mar, [facility] [place] [facility] [address] [id number] [place] [address]- 5937 Mar, [facility] [place] [facility] [address] [id number] [place] 5526 Feb, [facility] [place] [facility] [address] [id number] [place] [address]- 5445 20 Feb, 2014 [facility] [place] [facility] [address] [id number] [place] [address]- 8005 17 Feb, 2014 [facility] [place] [facility] [address] [id number] [place] [address]- 2873 17 Feb, 2014 [facility] [place] [facility] [address] [id number] [place] [address]- 3370 14 Feb, 2014 [facility] [place] [facility] [address] [id number] [place] [address]- 5358 14 Feb, 2014 [facility] [place] [facility] [address] [id number] [place] [address]- 3053 Feb, [facility] [place] [facility] [address] [id number] [place] [address]- 4954 Feb, [facility] [place] [facility] [address] [id number] [place] [address]- 8376 23 Jan, 2014 [facility] [place] [facility] [address] [id number] [place] [address]- 3707 23 Jan, 2014 [facility] [place] [facility] [address] [id number] [place] [address]- 3537 16 Jan, 2014 [facility] [place] [facility] [address] [id number] [place] [address]- 4537 16 Jan, 2014 [facility] [place] [facility] [address] [id number] [place] [address]- 0321 15 Jan, 2014 [facility] [place] [facility] [address] [id number], [place] [address]- 8780 15 Jan, 2014 [facility] [place] [facility] [address] [id number] [place] [address]- 6750 14 Jan, 2014 [facility] [place] [facility] [address] [id number], [place] [address]- 4268 14 Jan, 2014 [facility] [place] [facility] [address] [id number], [place] [address]- 4174 14 Jan, 2014 [facility] [place] [facility] [address] [id number] [place] [address]- 1077 14 Jan, 2014 [facility] [place] [facility] [address] [id number] [place] [address]- 2455 18 Dec, 2013 [facility] [place] [facility] [address] [id number] [place] [address]- 5293 Dec, [facility] [place] [facility] [address] [id number] [place] [address]- 7319 Dec, [facility] [place] [facility] [address] [id number] [place] [address]- 8604 Dec, [facility] [place] [facility] [address] [id number] [place] [address]- 5748 Nov, [facility] [place] [facility] [address] [id number] [place] [address]- 7363 Nov, [facility] [place] [facility] [address] [id number] [place] [address]- 9219 Nov, [facility] [place] [facility] [address] [id number] [place] [address]- 4200 Nov, [facility] [place] [facility] [address] [id number] [place] [address]- 6050 Nov, [facility] [place] [facility] [address] [id number] [place] [address]- 4482 Oct, [facility] [place] [facility] [address] [id number] [place] [address]- 7772 Oct, [facility] [place] [facility] [address] [id number] [place] [address]- 7210 Oct, [facility] [place] [facility] [address] [id number] [place] [address]- 6985 Oct, [facility] [place] [facility] [address] [id number] [place] [address]- 8722 Sep, [facility] [place] [facility] [address] [id number] [place] [address]- 7018 Sep, [facility] [place] [facility] [address] [id number] [place] [address]- 9670 Sep, [facility] [place] [facility] [address] [id number] [place] [address]- 6904 Sep, [facility] [place] [facility] [address] [id number] [place] [address]- 4602 Sep, [facility] [place] [facility] [address] [id number] [place] [address]- 5435 Sep, [facility] [place] [facility] [address] [id number] [place] [address]- 7271 Sep, [facility] [place] [facility] [address] [id number] [place] [address]- 9810 Sep, [facility] [place] [facility] [address] [id number] [place] [address]- 4695 August, [facility] [place] [facility] [address] [id number] [place] [address]- 5182 August, [facility] [place] [facility] [address] [id number] [place] [address]- 7177 August, [facility] [place] [facility] [address] [id number] [place] [address]- 9464 August, [facility] [place] [facility] [address] [id number] [place] [address]- 7215 August, [facility] [place] [facility] [address] [id number], [place] [address]- 4453 August, [facility] [place] [facility] [address] [id number] [place] [address]- 2617 August, [facility] [place] [facility] [address] [id number] [place] [address]- 1920 Jul, [facility] [place] [facility] [address] [id number] [place] [address]- 9573 Jul, [facility] [place] [facility] [address] [id number] [place] [address]- 1336 Jul, [facility] [place] [facility] [address] [id number] [place] [address]- 8793 Jul, [facility] [place] [facility] [address] [id number] [place] [address]- 3895 Jul, [facility] [place] [facility] [address] [id number] [place] [address]- 6602 Jul, [facility] [place] [facility] [address] [id number] [place] [address]- 2340 Jul, [facility] [place] [facility] [address] [id number] [place] [address]- 8304 Jul, [facility] [place] [facility] [address] [id number] [place] [address]- 7064 Jul, [facility] [place] [facility] [address] [id number] [place] [address]- 2270 Jul, [facility] [place] [facility] [address] [id number] [place] [address]- 2022 Jul, [facility] [place] [facility] [address] [id number] [place] [address]- 3405 Jul, [facility] [place] [facility] [address] [id number] [place] [address]- 7930 Jun, [facility] [place] [facility] [address] [id number] [place] [address]- 4605 Jun, [facility] [place] [facility] [address] [id number] [place] [address]- 8556 Jun, [facility] [place] [facility] [address] [id number] [place] [address]- 6622 Jun, [facility] [place] [facility] [address] [id number] [place] [address]- 7868 Jun, [facility] [place] [facility] [address] [id number] [place] [address]- 8708 May, [facility] [place] [facility] [address] [id number] [place] [address]- 9313 May, 2013 [facility] [place] [facility] [address] [id number] [place] [address]- 9746 May, [facility] [place] [facility] [address] [id number] [place] [address]- 0899 May, [facility] [place] [facility] [address] [id number] [place] [address]- 6879 May, [facility] [place] [facility] [address] [id number] [place] [address]- 1104 May, [facility] [place] [facility] [address] [id number] [place] [address]- 1849 May, [facility] [place] [facility] [address] [id number] [place] [address]- 3816 May, [facility] [place] [facility] [address] [id number] [place] [address]- 8129 Mar, [facility] [place] [facility] [address] [id number] [place] [address]- 2724 Mar, [facility] [place] [facility] [address] [id number] [place] [address]- 7787 Mar, [facility] [place] [facility] [address] [id number] [place] [address]- 1264 Mar, [facility] [place] [facility] [address] [id number], [place] [address]- 5075 Mar, [facility] [place] [facility] [address] [id number] [place] 1988 Mar, [facility] [place] [facility] [address] [id number] [place] [address]- 4050 Feb, [facility] [place] [facility] [address] [id number] [place] [address]- 9151 Feb, [facility] [place] [facility] [address] [id number] [place] [address]- 8347 Jan, [facility] [place] [facility] [address] [id number] [place] [address]- 8763 Jan, 2012 [facility] [place] [facility] [address] [id number] [place] [address]- 2702 Jan, [facility] [place] [facility] [address] [id number] [place] 0840 Jan, 2012 [facility] [place] [facility] [address] [id number] [place] [address]- 4631 Jan, 2012 [facility] [place] [facility] [address] [id number] [place] [address]- 0523 Jan, [facility] [place] [facility] [address] [id number] [place] [address]- 7631 Jan, [facility] [place] [facility] [address] [id number] [place] [address]- 3369 Jan, [facility] [place] [facility] [address] [id number] [place] [address]- 7392 Jan, [facility] [place] [facility] [address] [id number] [place] [address]- 1435 Jan, [facility] [place] [facility] [address] [id number] [place] [address]- 7043 Dec, [facility] [place] [facility] [address] [id number] [place] [address]- 7716 Nov, [facility] [place] [facility] [address] [id number] [place] [address]- 4857 Nov, [facility] [place] [facility] [address] [id number] [place] [address]- 9565 Nov, [facility] [place] [facility] [address] [id number] [place] [address]- 3050 Oct, [facility] [place] [facility] [address] [id number] [place] [address]- 7449 Oct, [facility] [address] [facility] [id number], [place] [address]- 5196 August, [facility] [id number], [place] [address]- 3746 Apr, [facility] [address] [id number], [place] [address]- 3276 Apr, [facility] [address], [place] [address]- 4996 Feb, [facility] [address] [id number], [place] [address]- 8373 Feb, [facility] [address], [place] [address]- 4976 Dec, [facility] [address] [address]- 0266 Dec, [facility] [address], [place] [address]- 6296 Oct, [facility] [address] [id number], [place] [address]- 1127 Oct, [facility] [address] [id number], [place] [address]- 3786 Oct, [facility] [address] [id number], [place] [address]- 8266 Jul, IMMUNIZATIONS No Known Immunizations SOCIAL HISTORY Never Assessed REASON FOR VISIT Well Woman Exam. Pt states her last breast exam was 3-4 years ago. Not sexually active for 25 years. Denies any abnormal discharge or vaginal odor. [facility] PLAN OF CARE Activity Details Follow Up 1 Year Reason: Pending Test Mammogram, Bilateral Screening VITAL SIGNS Height 57 in 2017-12-09 Weight 217.4 lbs 2017-12-09 Temperature 97.2 degrees Fahrenheit 2017-12-09 Heart Rate 80 bpm 2017-12-09 Respiratory Rate 20 2017-12-09 BMI 47.04 kg/m2 2017-12-09 Blood pressure systolic 112 mmHg 2017-12-09 Blood pressure diastolic 78 mmHg 2017-12-09 MEDICATIONS Medication Instructions Dosage Frequency Start Date End Date Duration Status Levothyroxine Sodium 175 MCG Orally Once a day 1 tablet 24h 30 Active Norvasc 10 mg Orally Once a day 1 tablet 24h Active Zoloft 50 MG Orally Once a day 1 tablet 24h Active Breo Ellipta 100-25 mcg/inh Inhalation Once a day INHALE ONE PUFF BY MOUTH ONCE DAILY AT THE SAME TIME EACH DAY 24h Oct, 12 months Active Estradiol 1 MG TAKE 1 TABLET BY MOUTH ONCE DAILY 30 Active Invega Sustenna 234 MG/1.5ML Intramuscular Once a month, on the 10th of every month 1.5 ml Active Sumatriptan Succinate 50 MG TAKE 1 TABLET BY MOUTH NEEDED FOR MIGRAINE- MAY REPEAT IN 2 HOURS IF NEEDED (TWICE A DAY) 10 Active Fluticasone Propionate 50 MCG/ACT Nasally Once a day 1 spray in each nostril 24h Jun, 30 day(s) Active Gabapentin 600 MG Orally Three times a day 1 tablet 8h Active HydrOXYzine HCl 50 mg TAKE ONE TO TWO TABLETS BY MOUTH EVERY 8 HOURS NEEDED FOR 30 DAYS Active Pravastatin Sodium 20 MG Orally Once a day 1 tablet 24h Active Myrbetriq 50 MG Orally Once a day 1 tablet 24h Active Restasis 0.05 % instill 1 drop into affected eye(s) by ophthalmic route 2 times per day Oct, Active True Metrix Meter w/Device as directed Oct, Active Lisinopril 2.5 MG Orally Once a day 1 tablet 24h Nov, Active Loxapine Succinate 25 MG Orally 4 times a day PRN 1 capsule Active Ibuprofen 800MG TAKE ONE TABLET BY MOUTH THREE TIMES DAILY NEEDED Active Ventolin HFA 108 (90 Base) MCG/ACT Inhalation every 4 hrs PRN 2 puffs as needed Feb, 12 months Active Zoloft 100 MG Orally Once a day 2 tablet 24h Mar, Active Plaquenil 200 mg Orally Once a day 1 tablet with food or milk 24h Active Ambien 5 mg Orally Once a day 1 tablet at bedtime 24h Oct, 28 days Active Singulair 10 MG Orally Once a day 1 tablet in the evening 24h Jan, 30 day(s) Active Januvia 100MG Orally Once a day 1 tablet 24h 30 Active Neurontin 600 mg Orally 2 times a day 1 tablet 12h 30 days Active Tramadol HCl 50 mg Orally 2 times a day 1 tablet as needed 12h 28 days Active Cetirizine HCl 10 mg Orally Once a day 1 tablet 24h Jun, Sep, 90 days Active True Metrix Blood Glucose Test - subcutaneously 2 times a day as directed ( pt tests twice daily) 12h 11 Oct, 2017 30 days Active Spironolactone 50MG Orally Once a day 1 tablet 24h Active Incontinence Supply Disposable SUPPLIES as directed Feb, 30 days Active Metformin HCl 1000MG Orally 2 times a day TAKE ONE TABLET BY MOUTH TWICE DAILY 12h 90 Active Omeprazole 40 MG Orally Once a day 1 capsule 24h Active Protonix 40 mg Orally Once a day 1 tablet 24h 13 Nov, 2017 30 day(s) Active Tizanidine HCl 4 MG Orally 3 times a day 1 1/2 tablets 8h Active RESULTS No Results PROCEDURES Procedure Date Ordered Result Body Site [facility] VISIT ESTABLISHED PATIENT Dec 09, 2017 INSTRUCTIONS MEDICATIONS ADMINISTERED No Known Medications [...]
--- OUTSIDE RECORDS SUMMARY | 2018-09-02 13:24 | XMS REPORT ---
Author Author EDWINUMESH CASIANO Organization [facility] [address] Address [address] [place] [address] Care Team Providers Care Boathouse Keeper Name Role Phone UMESH PINEDA Unavailable PROBLEMS Type Condition ICD9-CM Code QQF59-YD Code Onset Dates Condition Status SNOMED Code Problem OAB (overactive bladder) N32.81 Active 340359315 Problem Depression with anxiety F41.8 Active 642330938 Problem Other seasonal allergic rhinitis J30.2 Active 165220929 Problem Chronic obstructive pulmonary disease, unspecified COPD type J44.9 Active 28861659 Problem Tobacco abuse Z72.0 Active 387176279 Problem Morbid obesity due to excess calories E66.01 Active 708822795 Problem Dyslipidemia E78.5 Active 699130219 Problem Hypothyroidism (acquired) E03.9 Active 975791545 Problem Essential hypertension I10 Active 41849547 Problem Diabetic polyneuropathy associated with type 2 diabetes mellitus E11.42 Active 621060484 Problem Type 2 diabetes mellitus with diabetic neuropathic arthropathy, 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 Active 327179312 Problem Type 2 diabetes mellitus without complication, without long-term current use of insulin E11.9 Active 881651838 Problem Paranoid schizophrenia F20.0 Active 33507092 Problem Chronic pain syndrome G89.4 Active 790710066 Problem Migraine without aura and without status migrainosus, not intractable G43.009 Active 602368437 Problem Gastroesophageal reflux disease, esophagitis presence not specified K21.9 Active 042314882 Problem Seasonal allergic rhinitis due to pollen J30.1 Active 45553547 Problem COPD exacerbation J44.1 Active 408693593 Problem Seasonal allergic rhinitis due to other allergic trigger J30.89 Active 946063980 Problem Schizoaffective disorder, depressive type F25.1 Active 41310080 Problem History of lupus Z87.39 Active 107700273 Problem Gastroesophageal reflux disease without esophagitis K21.9 Active 059477915 Problem Menopausal syndrome (hot flashes) N95.1 Active 418576765 Problem Other allergic rhinitis J30.89 Active 023902379 Problem Primary insomnia F51.01 Active 2488549 Problem DM neuro manif type II E11.49 Active 13802385 ALLERGIES No Information ENCOUNTERS Encounter Location Date Diagnosis [facility] [id number] [place] [address] 59130- 2872 Jan, [facility] [id number] [place] [address] 56767- 5875 Jan, [facility] [id number] [place] [address] 59149- 8121 Jan, [facility] [id number] [place] [address] 71274- 6344 Jan, [facility] [id number] [place] [address] 26888- 3523 Jan, [facility] [id number] [place] [address] 81779- 8854 27 Dec, 2017 [facility] [id number] [place] [address] 41923- 9980 21 Dec, 2017 Schizoaffective disorder, depressive type F25.1 and BMI 45.0 -49.9, adult Z68.42 [place] [id number] [place] [address] 85458- 6084 Dec, [facility] [id number] [place] [address] 45633- 8390 Dec, [facility] [id number] [place] [address] 86780- 0653 18 Dec, 2017 Acute non-recurrent frontal sinusitis J01.10 [place] [id number] [place] [address] 41217- 9625 18 Dec, 2017 Acute non-recurrent frontal sinusitis J01.10 ; Weakness of left leg R29.898 ; At high risk for falls Z91.81 and BMI 45.0-49.9, adult Z68.42 [place] [address] [address] 78[address] Dec, [facility] [id number] [place] [address] 86766- 7968 Dec, [facility] [id number] [place] [address] 50627- 3154 Dec, Schizoaffective disorder, depressive type F25.1 [facility] [id number] [place] [address] 75906 -6326 Dec, Acute nasopharyngitis J00 [facility] [id number] [place] [address] 60398- 5689 Dec, Schizoaffective disorder, depressive type F25.1 [facility] [id number] [place] [address] 90979- 9151 Dec, [facility] [id number] [place] [address] 62233- 6563 Nov, Schizoaffective disorder, depressive type F25.1 and BMI 45.0 -49.9, adult Z68.42 [place] [id number] [place] [address] 48423- 7835 Nov, [facility] [id number] [place] [address] 40593- 6124 Nov, [place] [id number] [place] [address] 72773- 0848 Nov, Schizoaffective disorder, depressive type F25.1 [facility] [address] [place] [address] 59845- 7086 Nov, Well woman exam Z01.419 ; BMI 45.0-49.9, adult Z68.42 ; Screening breast examination Z12.31 and Dietary counseling and surveillance Z71.3 [facility] [id number] [place] [address] 50839- 8875 Nov, Paranoid schizophrenia F20.0 [place] [address] [address]- 1688 Nov, Gastroesophageal reflux disease, esophagitis presence not specified K21.9 [place] [id number] [place] [address] 54539- 9917 Oct, Paranoid schizophrenia F20.0 [facility] [id number] [place] [address] Oct Chronic pain syndrome G89.4 and Schizoaffective disorder, depressive type F25.1 [place] [id number] [place] [address] 63756- 1601 Oct, Chronic pain syndrome G89.4 and Schizoaffective disorder, depressive type F25.1 [place] [address] [place] [address] 38226- 8824 Oct, Type 2 diabetes mellitus without complication, without long- term current use of insulin E11.9 [place] [id number] [place] [address] 27213- 0172 Oct, Essential hypertension I10 and DM neuro manif type II E11.49 [place] [id number] [place] [address] 45804- 9897 Oct, [place] [address] [place] [address] 60522- 4728 Oct, Schizoaffective disorder, depressive type F25.1 and BMI 45.0 -49.9, adult Z68.42 [place] [address] [place] [address] 07653- 7066 Oct, [place] [id number] [place] [address] 37244- 4349 Oct, Paranoid schizophrenia F20.0 [place] [address] [place] [address] 21876- 6509 Oct, Type 2 diabetes mellitus with diabetic neuropathic arthropathy, 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 [id number] [place] [address] 94437- 2296 Sep, Paranoid schizophrenia F20.0 [facility] [id number] [place] [address] 28950- 6113 Sep, Paranoid schizophrenia F20.0 and BMI 45.0-49.9, adult Z68.42 [facility] [address] 61406- 1607 Sep, Schizoaffective disorder, depressive type F25.1 [facility] [id number] [place] [address] 87391- 5313 Sep, [facility] [id number] [place] [address] 93580- 7209 Sep, Paranoid schizophrenia F20.0 [facility] [id number] [place] [address] 17971- 2295 Sep, [facility] [address] 54063- 1745 Sep, Hypothyroidism (acquired) E03.9 [facility] [id number] [place] [address] 76684- 1948 Sep, [facility] [id number] [place] [address] 26342- 5149 August, Schizoaffective disorder, depressive type F25.1 [facility] [id number] [place] [address] 47313- 9870 August, [facility] [address] [place] [address] 12018- 1771 August, [facility] [id number] [place] [address] 37935- 5208 August, [facility] [address] 39667- 0354 August, Paranoid schizophrenia F20.0 [place] [address] 78895- 0827 August, History of lupus Z87.39 and Chronic pain syndrome G89.4 [place] [address] 84237- 8704 August, [facility] [place] [address] 31074 -2566 August, Seasonal allergic rhinitis, unspecified trigger J30.2 and BMI 45.0-49.9, adult Z68.[address] 00433- 3254 Jul, Schizoaffective disorder, depressive type F25.[address] 31671- 6040 Jul, [place] [address] 63363- 7465 Jul, Hypothyroidism (acquired) E03.[address] 05198- 8132 Jul, Chronic obstructive pulmonary disease, unspecified COPD type J44.9 and Type 2 diabetes mellitus without complication, without long-term current use of insulin E11.[address] 04983- 0899 Jul, Paranoid schizophrenia F20.0 [place] [address] 62366- 4320 Jun, Hypothyroidism (acquired) E03.9 and Seasonal allergic rhinitis due to pollen J30.1 [facility] [place] [address] 85167 -8465 Jun, Shortness of breath at rest R06.02 ; COPD exacerbation J44.1 and BMI 45.0-49.9, adult Z68.42 [place] [address] [place] [address] 69378- 1611 Jun, [facility] [id number] [place] [address] 33957- 2129 Jun, Paranoid schizophrenia F20.0 ; Depression with anxiety F41.8 and BMI 45.0-49.9, adult Z68.42 [facility] [id number] [place] [address] 98897- 1227 Jun, Schizoaffective disorder, depressive type F25.1 [facility] [id number] [place] [address] [id number] Jun, Dental caries K02.9 [facility] [id number] [place] [address] 73879- 8028 Jun, Paranoid schizophrenia F20.0 [facility] [id number] [place] [address] 59782- 5451 May, Migraine without aura and without status migrainosus, not intractable G43.009 ; DM neuro manif type II E11.49 and Type 2 diabetes mellitus without complication, without long-term current use of insulin E11.9 [facility] [id number] [place] [address] 24900- 4253 May, Migraine without aura and without status migrainosus, not intractable G43.009 [facility] [id number] [place] [address] 03661- 0266 May, Depression with anxiety F41.8 [facility] [address] [place] [address] [id number] May, [facility] [id number] [place] [address] 24148- 7366 May, [facility] [id number] [place] [address] 06926- 6084 May, [facility] [id number] [place] [address] 72470- 1890 May, Hypothyroidism (acquired) E03.9 [facility] [address] 83132- 8334 May, Paranoid schizophrenia F20.0 [place] [address] 92604- 1397 08 May, 2017 Type 2 diabetes mellitus [...] N32.81 and Controlled substance agreement signed Z79.899 [place] [address] 56743- 3833 May, Controlled substance agreement signed Z79.899 [place] [address] 52991- 2576 Apr, [facility] [address] [id number] Apr, Dental examination Z01.20 [place] [address] 48913- 0981 Apr, Paranoid schizophrenia F20.0 [place] [address] 27089- 0263 Apr, Hypertension, unspecified type I10 [place] [address] 97307- 1292 Apr, Paranoid schizophrenia F20.0 [place] [address] 02267- 3107 Apr, [facility] [id number] [place] [address] 90643- 0151 Apr, Tobacco abuse Z72.0 [facility] [id number] [place] [address] 27978- 4655 Apr, [facility] [id number] [place] [address] 29698- 0739 Mar, [facility] [address] 12431- 3037 Mar, Paranoid schizophrenia F20.0 and BMI 45.0-49.9, adult Z68.42 [facility] [id number] [place] [address] 38267- 8983 Mar, Schizoaffective disorder, depressive type F25.1 [facility] [id number] [place] [address] 68406- 7034 Mar, [facility] [id number] [place] [address] 76799- 6316 Mar, Hypothyroidism, unspecified type E03.9 [facility] [id number] [place] [address] 17142- 8092 Mar, Schizoaffective disorder, depressive type F25.1 [facility] [id number] [place] [address] 68147 -2360 Feb, Gastroenteritis K52.9 and BMI 45.0-49.[address], [address] [facility] [id number] [place] [address] 69715- 3634 Feb, [facility] [id number] [place] [address] 95062- 8857 Feb, [facility] [id number] [place] [address] 83159- 7485 Feb, [facility] [id number] [place] [address] 56491- 1200 Feb, [address] [id number] [place] [address] 73025- 0923 Feb, Paranoid schizophrenia F20.[address] 90483- 3915 Feb, Gastroesophageal reflux disease without esophagitis K21.9 ; Other seasonal allergic rhinitis J30.2 ; Other allergic rhinitis J30.89 ; Tobacco abuse Z72.0 and BMI 40.0-44.9, adult Z68.[address] 31180- 9628 Feb, Onychomycosis B35.1 ; Callus of foot L84 and DM neuro manif type II E11.[address] 92699- 3171 Jan, Chronic allergic rhinitis J30.[address] 70945- 3254 Jan, [address] 56838- 3943 Jan, Schizoaffective disorder, depressive type F25.[address] 33363- 3852 Jan, [facility] [address] [place] [address] 46727 -6266 Jan, Sore throat J02.9 and Seasonal allergic rhinitis due to other allergic trigger J30.89 [place] [id number] [place] [address] 69301- 9072 Jan, [address] 33767- 9322 Jan, [facility] [address] [place] [address] 73452 -2086 Jan, Chronic allergic rhinitis J30.[address] 24142- 3330 Dec, Paranoid schizophrenia F20.0 ; Primary insomnia F51.01 and Schizoaffective disorder, depressive type F25.1 [facility] [id number] [place] [address] 34767- 3181 Dec, Chronic pain syndrome G89.4 ; Cervicalgia of occipito- atlanto-axial region M54.2 ; Menopausal syndrome (hot flashes) N95.1 and Encounter for immunization Z23 [facility] [address] 48225- 4179 14 Dec, 2016 [facility] [address] 08844- 0844 13 Dec, 2016 [place] [address] 80920- 2132 08 Dec, 2016 Paranoid schizophrenia F20.0 [place] [id number] [place] [address] 22558- 8144 Dec, Schizoaffective disorder, depressive type F25.1 [facility] [id number] [place] [address] 01310- 4725 Nov, Hypothyroidism, unspecified type E03.9 [facility] [id number] [place] [address] 03593 -3642 Nov, Acute seasonal allergic rhinitis due to other allergen J30.89 [facility] [id number] [place] [address] 50069- 8889 Nov, [facility] [id number] [place] [address] 14238- 1767 Nov, Hypothyroidism, unspecified type E03.9 and Other elevated white blood cell (WBC) count D72.828 [place] [id number] [place] [address] 70057- 5980 Nov, Schizoaffective disorder, depressive type F25.1 [facility] [id number] [place] [address] 73329- 3040 Nov, Paranoid schizophrenia F20.0 [place] [address] [address]- 1520 Nov, Type 2 diabetes mellitus without complication, without long- term current use of insulin E11.9 ; Morbid obesity due to excess calories E66.01 and Chronic pain syndrome G89.4 [place] [address] [place] [address] 42011- 2395 Oct, Paranoid schizophrenia F20.0 [place] [address] [place] [address] 28353- 1926 Oct, [place] [id number] [place] [address] 11635- 3654 Oct, Schizoaffective disorder, depressive type F25.1 [place] [address] [place] [address] 66848- 9981 Oct, Hypothyroidism, unspecified type E03.9 and Other elevated white blood cell (WBC) count D72.828 [place] [address] [place] [address] 88943- 1099 Oct, Morbid obesity due to excess calories E66.01 ; Chronic obstructive pulmonary disease, unspecified COPD type J44.9 ; History of lupus Z87.39 ; Hypothyroidism, unspecified type E03.9 ; Gastroesophageal reflux disease without esophagitis K21.9 ; Primary insomnia F51.01 and Chronic pain syndrome G89.4 [place] [address], [place] [address]- 7047 Sep, [place] [address] [place] [address]- 9546 Sep, [place] [address] [address]- 9880 Sep, [place] [address], [place] [address]- 7267 Sep, Paranoid schizophrenia F20.0 [place] [address] [address]- 5039 Sep, [facility] [address] [place] [address] 65444- 6817 Sep, Paranoid schizophrenia F20.0 [facility] [address] [place] [address] 76132- 9864 Sep, [facility] [id number] [place] [address] 17559- 8354 August, Paranoid schizophrenia F20.0 [facility] [address] [place] [address] 27206- 0298 Jul, [facility] [id number] [place] [address] 98247- 0616 Jul, Type 2 diabetes mellitus without complication, without long- term current use of insulin E11.9 ; Morbid obesity due to excess calories E66.01 ; Depression with anxiety F41.8 ; Hypothyroidism, unspecified type E03.9 ; Seasonal allergic rhinitis due to other allergic trigger J30.89 ; Pain, dental K08.89 and Gastroesophageal reflux disease without esophagitis K21.9 [facility] [id number] [place] [address] [id number] Jul, Dental examination Z01.20 [facility] [address] [place] [address] 12284- 9752 07 Jul, [address] [facility] [address] [place] [address] 60454- 2018 13 Jun, 2016 Paranoid schizophrenia F20.0 and Depression with anxiety F41.8 [facility] [id number] [place] [address] 23581- 7077 10 Jun, 2016 Paranoid schizophrenia F20.0 and Depression with anxiety F41.8 [facility] [address] [place] [address] 52618- 5161 09 Jun, 2016 [facility] [id number] [place] [address] 13218- 9263 08 Jun, 2016 [facility] [id number] [place] [address] 92899 -3181 08 Jun, 2016 Seasonal allergic rhinitis due to other allergic trigger J30.89 [facility] [id number] [place] [address] 59323 -9900 25 May, 2016 Sore throat J02.9 ; Other viral agents as the cause of diseases classified elsewhere B97.89 and Acute upper respiratory infection, unspecified J06.9 [place] [id number] [place] [address] 35275- 7254 08 May, 2016 Paranoid schizophrenia F20.0 and Depression with anxiety F41.8 [place] [id number] [place] [address] 76811- 5923 Apr, Other seasonal allergic rhinitis J30.2 [place] [id number] [place] [address] 37245- 2726 Apr, Paranoid schizophrenia F20.0 and Depression with anxiety F41.8 [facility] [place] [id number] [place] [address] 60582 -4918 Apr, Bronchitis J40 and Sore throat J02.9 [place] [id number] [place] [address] 49378- 7406 Apr, Type 2 diabetes mellitus without complication, without long- term current use of insulin E11.9 [facility] [place] [id number] [place] [address] 46209 -5208 Apr, Bronchitis J40 [place] [id number] [place] [address] 28899- 2368 Apr, [place] [id number] [place] [address] 68513- 6512 Apr, [place] [address] [place] [address] 20824- 1597 Mar, Type 2 diabetes mellitus without complication, [...] R60.9 and Other seasonal allergic rhinitis J30.2 [place] [address] 07076- 6158 Mar, Paranoid schizophrenia F20.0 and Depression with anxiety F41.8 [place] [id number] [place] [address] 73479- 4887 Feb, [place] [address] 68612- 5691 Feb, [place] [address] [address] Feb, [place] [address] [address] Feb, [place] [address] [address]- [address] Feb, Type 2 diabetes mellitus without complication, without long- term current use of insulin E11.9 ; ARIAS on CPAP G47.33 and Preoperative evaluation to rule out surgical contraindication Z01.818 [place] [address] [place] [id number] [place] [address]- [address] Feb, Paranoid schizophrenia F20.0 and Depression with anxiety F41.8 [place] [address] [place] [id number] [place] [address]- [address]54 Jan, [place] [address] [address] Jan, Paranoid schizophrenia F20.0 and Depression with anxiety F41.8 [place] [address] [address]- [address] Jan, [place] [address] [address] 14 Jan, [address] [facility] [address] [place] [id number] [address] Jan, Paranoid schizophrenia F20.0 [facility] [id number] [place] [address] Jan, [facility] [address] [place] [id number] [place] [address]- [address] Jan, Paranoid schizophrenia F20.0 and Depression with anxiety F41.8 [facility] [id number] [place] [address]- [address]0 Jan, [facility] [facility] [id number] [place] [address]- 4152 Jan, [facility] [id number] [place] [address] 69591- 4057 [address], [address] [facility] [address] [address] 7536 23 Dec, [address] [facility] [id number] [place] [address] 18315- 3731 16 Dec, 2015 Paranoid schizophrenia F20.0 and Depression with anxiety F41.8 [facility] [address] [address] 6[address] Nov, [facility] [address], [place] [address] 3890 Nov, Paranoid schizophrenia F20.0 [facility] [address], [place] [address] 4986 Nov, Paranoid schizophrenia F20.0 and Depression with anxiety F41.8 [facility] [address], [place] [address] Nov, Type 2 diabetes mellitus without complication, without long- term current use of insulin E11.9 ; Paranoid schizophrenia F20.0 ; Chronic obstructive pulmonary disease, unspecified COPD type J44.9 ; Morbid obesity due to excess calories E66.01 and Parkinsonian tremor G20 [facility] [id number] [place] [address] 26738- 6850 Nov, [facility] [id number] [place] [address] 66848- 6793 Oct, Paranoid schizophrenia F20.0 [facility] [id number] [place] [address] 51145- 1792 Oct, Paranoid schizophrenia F20.0 [facility] [id number] [place] [address] 46525- 4140 Oct, Paranoid schizophrenia F20.0 and Depression with anxiety F41.8 [facility] [id number] [place] [address] 35471- 0601 Oct, [facility] [id number] [place] [address] 76519- 2863 Oct, Paranoid schizophrenia F20.0 and Depression with anxiety F41.8 [facility] [id number] [place] [address] 09553- 3149 Oct, Nasal sore J34.89 [facility] [id number] [place] [address] 90193- 9117 Oct, Type 2 diabetes mellitus without complication, without long- term current use of insulin E11.9 ; Depression with anxiety F41.8 ; Hypothyroidism, unspecified type E03.9 and History of lupus Z87.39 [facility] [id number] [place] [address] 18241- 7168 Oct, [facility] [id number] [place] [address] 26081- 4804 Oct, Type 2 diabetes mellitus without complication, [...] edema R60.9 and History of lupus Z87.39 [facility] [id number] [place] [address] 277887- 8669 Feb, [facility] [id number] [place] [address] [id number]- 8483 Jan, [facility] [id number] [place] [address] [id number] 2996 Jan, [facility] [id number] [place] [address] 88467- [address] Jan, [facility] [id number] [place] [address] 91851- 5861 Dec, [facility] [id number] [place] [address] 434103- 5716 Nov, [facility] [id number] [place] [address] [id number] Nov, [facility] [id number] [place] [address] 47592- 5217 Oct, [facility] [id number] [place] [address] 63973- 0514 Oct, [facility] [id number] [place] [address] [id number]- 9584 Oct, [facility] [id number] [place] [address] [id number]- 3033 Sep, Allergic rhinitis 477.9 [facility] [id number] [place] [address] 07287- 9446 Sep, Rhinitis, allergic 477.9 [facility] [address] [place] [address]- 1272 10 Sep, 2014 Rhinitis, allergic 477.9 [facility] [place] [facility] [address] [id number] [place] [address]- 6806 Sep, [facility] [place] [facility] [address] [id number] [place] [address]- 9956 August, [facility] [place] [facility] [address] [id number] [place] [address]- 5059 August, [facility] [place] [facility] [address] [id number] [place] [address]- 4741 August, [facility] [place] [facility] [address] [id number] [place] [address]- 5507 28 Jul, 2014 [facility] [place] [facility] [address] [facility] [id number] [place] [address]- 6475 14 Jul, 2014 [facility] [place] [facility] [address] [facility] [id number] [place] [address]- 6794 Jul, [facility] [place] [facility] [address] [id number] [place] [address]- 3802 16 Jun, 2014 [facility] [place] [facility] [address] [id number] [place] [address]- 3108 16 Jun, 2014 [facility] [place] [facility] [address] [facility] [id number] [place] [address]- 1182 Jun, [facility] [place] [facility] [address] [facility] [id number] [place] [address]- 1198 Jun, [facility] [place] [facility] [address] [id number] [place] [address]- 9145 Jun, [facility] [place] [facility] [address] [id number] [place] [address]- 2987 Jun, [facility] [place] [facility] [address] [facility] [id number] [place] [address]- 3376 02 Jun, 2014 [facility] [place] [facility] [address] [facility] [id number] [place] [address]- 0949 Jun, [facility] [place] [facility] [address] [id number] [place] 4035 May, [facility] [place] [facility] [address] [id number] [place] [address]- 2606 May, [facility] [place] [facility] [address] [id number] [place] [address]- 2506 May, [facility] [place] [facility] [address] [id number] [place] [address]- 5779 May, 2014 [facility] [place] [facility] [address] [id number] [place] [address]- 3080 Apr, [facility] [place] [facility] [address] [id number] [place] [address]- 3899 Mar, [facility] [place] [facility] [address] [id number] [place] [address]- 3420 Mar, [facility] [place] [facility] [address] [id number] [place] [address]- 9010 Mar, [facility] [place] [facility] [address] [id number] [place] [address]- 6806 Mar, [facility] [place] [facility] [address] [id number] [place] [address]- 1639 Mar, [facility] [place] [facility] [address] [facility] [id number] [place] [address]- 2763 Mar, [facility] [place] [facility] [address] [id number] [place] [address]- 2781 Mar, [facility] [place] [facility] [address] [id number] [place] 7520 Mar, [facility] [place] [facility] [address] [facility] [id number] [place] [address]- 6992 Mar, [facility] [place] [facility] [address] [id number] [place] 6230 Feb, [facility] [place] [facility] [address] [id number] [place] [address]- 6653 20 Feb, 2014 [facility] [place] [facility] [address] [id number] [place] [address]- 8135 17 Feb, 2014 [facility] [place] [facility] [address] [id number] [place] [address]- 7050 17 Feb, 2014 [facility] [place] [facility] [address] [id number] [place] [address]- 0792 Feb, [facility] [place] [facility] [address] [id number] [place] [address]- 8588 Feb, [facility] [place] [facility] [address] [id number] [place] [address]- 7822 Feb, [facility] [place] [facility] [address] [id number] [place] [address]- 0178 Feb, [facility] [place] [facility] [address] [id number] [place] [address]- 2490 23 Jan, 2014 [facility] [place] [facility] [address] [id number] [place] [address]- 6625 23 Jan, 2014 [facility] [place] [facility] [address] [id number] [place] [address]- 7789 16 Jan, 2014 [facility] [place] [facility] [address] [id number] [place] [address]- 9729 16 Jan, 2014 [facility] [place] [facility] [address] [id number] [place] [address]- 6471 15 Jan, 2014 [facility] [place] [facility] [address] [id number] [place] [address]- 2487 15 Jan, 2014 [facility] [place] [facility] [address] [id number] [place] [address]- 0536 14 Jan, 2014 [facility] [place] [facility] [address] [id number] [place] [address]- 0900 14 Jan, 2014 [facility] [place] [facility] [address] [id number] [place] [address]- 7651 14 Jan, 2014 [facility] [place] [facility] [address] [id number] [place] [address]- 1555 14 Jan, 2014 [facility] [place] [facility] [address] [id number] [place] [address]- 8700 18 Dec, 2013 [facility] [place] [facility] [address] [id number] [place] [address]- 8395 18 Dec, 2013 [facility] [place] [facility] [address] [id number] [place] [address]- 7782 Dec, [facility] [place] [facility] [address] [id number] [place] [address]- 0141 Dec, [facility] [place] [facility] [address] [id number] [place] [address]- 5062 Nov, [facility] [place] [facility] [address] [id number] [place] [address]- 2663 Nov, [facility] [place] [facility] [address] [id number] [place] [address]- 9080 Nov, [facility] [place] [facility] [address] [id number] [place] [address]- 5498 Nov, [facility] [place] [facility] [address] [id number] [place] [address]- 1952 Nov, [facility] [place] [facility] [address] [id number] [place] [address]- 7946 Oct, [facility] [place] [facility] [address] [id number] [place] [address]- 7537 Oct, [facility] [place] [facility] [address] [id number] [place] [address]- 7217 Oct, [facility] [place] [facility] [address] [id number] [place] [address]- 3440 Oct, [facility] [place] [facility] [address] [id number] [place] [address]- 1441 Sep, [facility] [place] [facility] [address] [id number] [place] [address]- 0888 Sep, [facility] [place] [facility] [address] [id number] [place] [address]- 5765 Sep, [facility] [place] [facility] [address] [id number] [place] [address]- 3388 Sep, [facility] [place] [facility] [address] [id number] [place] [address]- 4540 Sep, [facility] [place] [facility] [address] [id number] [place] [address]- 9922 Sep, [facility] [place] [facility] [address] [id number] [place] [address]- 3088 Sep, [facility] [place] [facility] [address] [id number] [place] [address]- 4370 Sep, [facility] [place] [facility] [address] [id number] [place] [address]- 7460 August, [facility] [place] [facility] [address] [id number] [place] [address]- 6671 August, [facility] [place] [facility] [address] [id number] [place] [address]- 9863 August, [facility] [place] [facility] [address] [id number] [place] [address]- 6514 August, [facility] [place] [facility] [address] [id number] [place] [address]- 8005 August, [facility] [place] [facility] [address] [id number] [place] [address]- 8879 August, [facility] [place] [facility] [address] [id number] [place] [address]- 8451 August, [facility] [place] [facility] [address] [id number] [place] [address]- 1754 Jul, [facility] [place] [facility] [address] [id number] [place] [address]- 9790 Jul, [facility] [place] [facility] [address] [id number] [place] [address]- 5771 Jul, [facility] [place] [facility] [address] [id number] [place] [address]- 8188 Jul, [facility] [place] [facility] [address] [id number] [place] [address]- 3087 Jul, [facility] [place] [facility] [address] [id number] [place] [address]- 0903 Jul, [facility] [place] [facility] [address] [id number] [place] [address]- 5656 Jul, [facility] [place] [facility] [address] [id number] [place] [address]- 4806 Jul, [facility] [place] [facility] [address] [id number] [place] [address]- 9510 Jul, [facility] [place] [facility] [address] [id number] [place] [address]- 6705 Jul, [facility] [place] [facility] [address] [id number] [place] [address]- 0562 Jul, [facility] [place] [facility] [address] [id number] [place] [address]- 7288 Jul, [facility] [place] [facility] [address] [id number] [place] [address]- 3999 Jun, [facility] [place] [facility] [address] [id number] [place] [address]- 2444 31 Jun, 2013 [facility] [place] [facility] [address] [id number] [place] [address]- 1649 27 Jun, 2013 [facility] [place] [facility] [address] [id number] [place] [address]- 4194 Jun, [facility] [place] [facility] [address] [id number] [place] 5527 Jun, [facility] [place] [facility] [address] [id number] [place] [address]- 3162 May, [facility] [place] [facility] [address] [id number] [place] [address]- 9208 May, [facility] [place] [facility] [address] [facility] [id number] [place] [address]- 5186 May, [facility] [place] [facility] [address] [facility] [id number] [place] [address]- 4084 May, [facility] [place] [facility] [address] [id number] [place] [address]- 2885 May, [facility] [place] [facility] [address] [id number] [place] [address]- 5104 May, [facility] [place] [facility] [address] [facility] [id number] [place] [address]- 3653 May, [facility] [place] [facility] [address] [facility] [id number] [place] [address]- 2680 May, [facility] [place] [facility] [address] [facility] [id number] [place] [address]- 3118 Mar, [facility] [place] [facility] [address] [facility] [id number] [place] [address]- 0146 Mar, [facility] [place] [facility] [address] [facility] [id number] [place] [address]- 9274 Mar, [facility] [place] [facility] [address] [facility] [id number] [place] [address]- 1163 Mar, [facility] [place] [facility] [address] [facility] [id number] [place] [address]- 6356 Mar, [facility] [place] [facility] [address] [facility] [id number] [place] [address]- 4756 Mar, [facility] [place] [facility] [address] [facility] [id number] [place] [address]- 1413 Feb, [facility] [place] [facility] [address] [facility] [id number] [place] [address]- 6497 Feb, [facility] [place] [facility] [address] [id number] [place] [address]- 7011 Jan, [facility] [place] [facility] [address] [id number] [place] [address]- 9230 Jan, [facility] [place] [facility] [address] [id number] [place] [address]- 3962 Jan, [facility] [place] [facility] [address] [id number] [place] [address]- 7941 Jan, 2012 [facility] [place] [facility] [address] [id number] [place] [address]- 9927 Jan, [facility] [place] [facility] [address] [id number] [place] [address]- 3106 Jan, [facility] [place] [facility] [address] [id number] [place] [address]- 0551 Jan, [facility] [place] [facility] [address] [id number] [place] [address]- 8228 Jan, [facility] [place] [facility] [address] [id number] [place] [address]- 3897 Jan, [facility] [place] [facility] [address] [id number] [place] [address]- 3507 Jan, [facility] [place] [facility] [address] [id number] [place] [address]- 9056 Dec, [facility] [place] [facility] [address] [id number] [place] [address]- 4717 Nov, [facility] [place] [facility] [address] [id number] [place] [address]- 7435 Nov, [facility] [place] [facility] [address] [id number] [place] [address]- 0535 Nov, [facility] [place] [facility] [address] [id number] [place] [address]- 3094 Oct, [facility] [place] [facility] [address] [id number] [place] [address]- 0830 Oct, [facility] [address], [place] [address] 0593 August, [facility] [address], [place] [address]- 8283 Apr, [facility] [address], [place] [address]- [address] [facility] [id number] [place] [address] 940311- [address] Feb, [facility] [id number] [place] [address] 47366- [address] Feb, [facility] [id number] [place] [address] 95511- [address] Dec, [facility] [id number] [place] [address] 90615- [address] Dec, [facility] [id number] [place] [address] 00998- [address] Oct, [facility] [address] [address]- 2514 Oct, [facility] [address], [place] [address]- 5631 Oct, [facility] [address] [place] [address]- 7214 Jul, IMMUNIZATIONS No Known Immunizations SOCIAL HISTORY Never Assessed REASON FOR VISIT PLAN OF CARE VITAL SIGNS MEDICATIONS Unknown [...] for psychosis/mental illness , last one in [place] at [facility] 4 years ago
--- OUTSIDE RECORDS SUMMARY | 2018-09-02 13:25 | XMS REPORT ---
Author Author SOTO STRICKLAND Organization [facility] Address [address] [place] [address] Care Team Providers Care Loan Underwriter Name Role Phone SOTO STRICKLAND Unavailable PROBLEMS Type Condition ICD9-CM Code VFQ02-VO Code Onset Dates Condition Status SNOMED Code Problem OAB (overactive bladder) N32.81 Active 347710341 Problem Depression with anxiety F41.8 Active 008866536 Problem Other seasonal allergic rhinitis J30.2 Active 927877815 Problem Chronic obstructive pulmonary disease, unspecified COPD type J44.9 Active 84500740 Problem Tobacco abuse Z72.0 Active 125853809 Problem Morbid obesity due to excess calories E66.01 Active 319465962 Problem Dyslipidemia E78.5 Active 553601518 Problem Hypothyroidism (acquired) E03.9 Active 871654473 Problem Essential hypertension I10 Active 90734093 Problem Diabetic polyneuropathy associated with type 2 diabetes mellitus E11.42 Active 391683536 Problem Type 2 diabetes mellitus with diabetic neuropathic arthropathy, 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 Active 993554849 Problem Type 2 diabetes mellitus without complication, without long-term current use of insulin E11.9 Active 226891158 Problem Paranoid schizophrenia F20.0 Active 93581729 Problem Chronic pain syndrome G89.4 Active 117861529 Problem Migraine without aura and without status migrainosus, not intractable G43.009 Active 603229656 Problem Gastroesophageal reflux disease, esophagitis presence not specified K21.9 Active 292864600 Problem Seasonal allergic rhinitis due to pollen J30.1 Active 43493757 Problem COPD exacerbation J44.1 Active 238704507 Problem Seasonal allergic rhinitis due to other allergic trigger J30.89 Active 931444936 Problem Schizoaffective disorder, depressive type F25.1 Active 68344262 Problem History of lupus Z87.39 Active 456231723 Problem Gastroesophageal reflux disease without esophagitis K21.9 Active 680912300 Problem Menopausal syndrome (hot flashes) N95.1 Active 861068031 Problem Other allergic rhinitis J30.89 Active 770187869 Problem Primary insomnia F51.01 Active 7757685 Problem DM neuro manif type II E11.49 Active 62239459 ALLERGIES No Information ENCOUNTERS Encounter Location Date Diagnosis [facility] [id number] [place] [address] 26973- 1834 Jan, [facility] [address] 29411- 7020 Jan, [facility] [address] 11330- 7445 Jan, [place] [address] 38686- 1716 Jan, [place] [address] 42456- 1941 Dec, Schizoaffective disorder, depressive type F25.1 and BMI 45.0 -49.9, adult Z68.42 [place] [id number] [place] [address] 41754- 6246 Dec, [place] [address] 32259- 0801 Dec, [place] [id number] [place] [address] 54421- 6518 18 Dec, 2017 Acute non-recurrent frontal sinusitis J01.10 [place] [id number] [place] [address] 60700- 5627 18 Dec, 2017 Acute non-recurrent frontal sinusitis J01.10 ; At high risk for falls Z91.81 ; BMI 45.0-49.9, adult Z68.42 and Weakness of left leg R29.898 [place] [id number] [place] [address] 65352- 4872 17 Dec, 2017 [place] [id number] [place] [address] 18779- 1538 17 Dec, 2017 [facility] [id number] [address] 6873 Dec, Schizoaffective disorder, depressive type F25.1 [facility] [id number] [place] [address] 56609 -2273 Dec, Acute nasopharyngitis J00 [facility] [id number] [place] [address] 05143- 6597 Dec, Schizoaffective disorder, depressive type F25.1 [facility] [id number] [place] [address] 69441- 4411 Dec, [place] [id number] [place] [address] 17065- 7864 Nov, Schizoaffective disorder, depressive type F25.1 and BMI 45.0 -49.9, adult Z68.42 [facility] [id number] [place] [address] 09121- 7469 Nov, [facility] [id number] [place] [address] 57068- 9128 Nov, [place] [id number] [place] [address] 47545- 8239 Nov, Schizoaffective disorder, depressive type F25.1 [facility] [id number] [place] [address] 00944- 3639 Nov, Well woman exam Z01.419 ; BMI 45.0-49.9, adult Z68.42 ; Screening breast examination Z12.31 and Dietary counseling and surveillance Z71.3 [facility] [id number] [place] [address] 91032- 5701 Nov, Paranoid schizophrenia F20.0 [place] [id number] [place] [address] 77673- 7989 Nov, Gastroesophageal reflux disease, esophagitis presence not specified K21.9 [facility] [id number] [place] [address] 29321- 4729 Oct, Paranoid schizophrenia F20.0 [facility] [id number] [place] [address] Oct Chronic pain syndrome G89.4 and Schizoaffective disorder, depressive type F25.1 [place] [id number] [address]- 6449 Oct, Chronic pain syndrome G89.4 and Schizoaffective disorder, depressive type F25.1 [place] [address] [place] [address] 03354- 8895 Oct, Type 2 diabetes mellitus without complication, without long- term current use of insulin E11.9 [place] [id number] [place] [address] 05193- 9835 Oct, Essential hypertension I10 and DM neuro manif type II E11.49 [place] [id number] [place] [address] 06266- 6840 Oct, [place] [address] [place] [address] 43283- 0181 Oct, Schizoaffective disorder, depressive type F25.1 and BMI 45.0 -49.9, adult Z68.42 [place] [address] [address]- 9660 Oct, [place] [address] [place] [address] 72938- 7755 Oct, Paranoid schizophrenia F20.0 [place] [address] [place] [address] 62560- 5751 Oct, Type 2 diabetes mellitus with diabetic neuropathic arthropathy, 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 ; Essential hypertension I10 ; Hypothyroidism (acquired) E03.9 ; Chronic obstructive pulmonary disease, unspecified COPD type J44.9 and Diabetic polyneuropathy associated with type 2 diabetes mellitus E11.42 [place] [address] [place] [address] 18905- 7894 Sep, Paranoid schizophrenia F20.0 [facility] [id number] [address]- 5152 Sep, Paranoid schizophrenia F20.0 and BMI 45.0-49.9, adult Z68.42 [facility] [id number] [address] 5420 Sep, Schizoaffective disorder, depressive type F25.1 [facility] [id number] [place] [address] 52942- 3869 Sep, [facility] [id number] [place] [address] 82796- 7479 Sep, Paranoid schizophrenia F20.0 [facility] [id number] [place] [address] 83561- 0015 Sep, [facility] [id number] [place] [address] 38511- 6228 Sep, Hypothyroidism (acquired) E03.9 [facility] [id number] [place] [address] 26162- 8919 Sep, [facility] [id number] [place] [address] 27401- 9449 August, Schizoaffective disorder, depressive type F25.1 [facility] [id number] [address]- 8051 August, [facility] [id number] [place] [address] 19708- 7396 August, [facility] [id number], [place] [address]- 8350 August, [facility] [id number] [place] [address] 00881- 4301 August, Paranoid schizophrenia F20.0 [facility] [address] [address]- 9722 August, History of lupus Z87.39 and Chronic pain syndrome G89.4 [facility] [id number] [place] [address] 48701- 1155 August, [facility] [address] 14915 -0633 August, Seasonal allergic rhinitis, unspecified trigger J30.2 and BMI 45.0-49.9, adult Z68.42 [place] [address] 15503- 0712 Jul, Schizoaffective disorder, depressive type F25.1 [place] [address] 56527- 2793 Jul, [place] [address] 65292- 1084 Jul, Hypothyroidism (acquired) E03.9 [place] [address] 55322- 2153 Jul, Chronic obstructive pulmonary disease, unspecified COPD type J44.9 and Type 2 diabetes mellitus without complication, without long-term current use of insulin E11.9 [place] [address] 44110- 6640 Jul, Paranoid schizophrenia F20.0 [place] [address] 80161- 0342 Jun, Hypothyroidism (acquired) E03.9 and Seasonal allergic rhinitis due to pollen J30.1 [facility] [id number] [place] [address] 65347 -6539 Jun, Shortness of breath at rest R06.02 ; COPD exacerbation J44.1 and BMI 45.0-49.9, adult Z68.42 [place] [address] 27965- 9568 Jun, [place] [address] 68264- 7177 Jun, Paranoid schizophrenia F20.0 ; Depression with anxiety F41.8 and BMI 45.0-49.9, adult Z68.42 [facility] [id number] [place] [address]- 7687 Jun, Schizoaffective disorder, depressive type F25.1 [facility] [id number] [place] [address] [phone] Jun, Dental caries K02.9 [facility] [address] 755208- 3872 Jun, Paranoid schizophrenia F20.0 [facility] [address] [id number]- 3155 May, Migraine without aura and without status migrainosus, not intractable G43.009 ; DM neuro manif type II E11.49 and Type 2 diabetes mellitus without complication, without long-term current use of insulin E11.9 [facility] [id number] [place] [address] 06224- 5994 May, Migraine without aura and without status migrainosus, not intractable G43.009 [facility] [id number] [place] [address] 88037- 3025 May, Depression with anxiety F41.8 [facility] [id number] [place] [address] [phone] May, [facility] [id number] [place] [address] 49852- 4233 May, [facility] [id number] [place] [address] 94448- 9222 May, [facility] [id number] [place] [address] 25786- 5093 May, Hypothyroidism (acquired) E03.9 [facility] [id number] [place] [address] 37528- 1881 May, Paranoid schizophrenia F20.0 [facility] [id number] [place] [address] 46206- 2633 08 May, 2017 Type 2 diabetes mellitus [...] N32.81 and Controlled substance agreement signed Z79.899 [place] [address] 75839- 4598 May, Controlled substance agreement signed Z79.899 [place] [address] 37299- 7171 Apr, [facility] [address] [id number] Apr, Dental examination Z01.20 [place] [address] 52914- 6166 Apr, Paranoid schizophrenia F20.0 [place] [address] 93037- 3637 Apr, Hypertension, unspecified type I10 [place] [address] 78219- 2794 Apr, Paranoid schizophrenia F20.0 [place] [address] 19652- 4875 Apr, [place] [address] 45525- 4975 Apr, Tobacco abuse Z72.0 [place] [address] 07937- 7908 Apr, [facility] [id number] [place] [address] 70778- 2708 Mar, [facility] [id number] [place] [address] 39067- 5908 Mar, Paranoid schizophrenia F20.0 and BMI 45.0-49.9, adult Z68.42 [facility] [id number] [place] [address] 28446- 6280 Mar, Schizoaffective disorder, depressive type F25.1 [facility] [id number] [place] [address] 01365- 3019 Mar, [facility] [address] 07698- 4726 Mar, Hypothyroidism, unspecified type E03.9 [facility] [id number] [place] [address] 62865- 8754 Mar, Schizoaffective disorder, depressive type F25.1 [facility] [id number] [place] [address] 44980 -3127 Feb, Gastroenteritis K52.9 and BMI 45.0-49.9, adult Z68.42 [facility] [id number] [place] [address] 79513- 3221 Feb, [facility] [id number] [place] [address] 37430- 8035 Feb, [facility] [id number] [place] [address] 78598- 7738 Feb, [facility] [id number] [place] [address] 38502- 0319 Feb, [facility] [id number] [place] [address] 82045- 8803 Feb, Paranoid schizophrenia F20.0 [facility] [id number] [place] [address] 46981- 1399 Feb, Gastroesophageal reflux disease without esophagitis K21.9 ; Other seasonal allergic rhinitis J30.2 ; Other allergic rhinitis J30.89 ; Tobacco abuse Z72.0 and BMI 40.0-44.9, adult Z68.41 [place] [id number] [place] [address] 07391- 2786 Feb, Onychomycosis B35.1 ; Callus of foot L84 and DM neuro manif type II E11.49 [place] [address] 03848- 9407 Jan, Chronic allergic rhinitis J30.9 [place] [address] 64446- 4403 Jan, [place] [address] 54553- 1242 Jan, Schizoaffective disorder, depressive type F25.[address] 22397- 5071 Jan, [facility] [address] 04522 -2143 Jan, Sore throat J02.9 and Seasonal allergic rhinitis due to other allergic trigger J30.89 [place] [id number] [place] [address] 79567- 7712 Jan, [facility] [id number] [place] [address] 25673- 1349 Jan, [facility] [address] 89091 -6470 Jan, Chronic allergic rhinitis J30.9 [place] [address] 58968- 1803 27 Dec, 2016 Paranoid schizophrenia F20.0 ; Primary insomnia F51.01 and Schizoaffective disorder, depressive type F25.1 [place] [address] 26813- 0365 Dec, Chronic pain syndrome G89.4 ; Cervicalgia of occipito- atlanto-axial region M54.2 ; Menopausal syndrome (hot flashes) N95.1 and Encounter for immunization Z23 [place] [id number] [place] [address] 21133- 7144 Dec, [place] [address] 92310- 8041 Dec, [place] [address] 56745- 6596 Dec, Paranoid schizophrenia F20.0 [place] [address] 21474- 2896 Dec, Schizoaffective disorder, depressive type F25.1 [place] [address] 62961- 6672 Nov, Hypothyroidism, unspecified type E03.9 [facility] [id number] [place] [address] 58174 -1887 Nov, Acute seasonal allergic rhinitis due to other allergen J30.89 [place] [address] 35465- 5778 Nov, [place] [id number] [place] [address] 27732- 9148 Nov, Hypothyroidism, unspecified type E03.9 and Other elevated white blood cell (WBC) count D72.828 [place] [id number] [place] [address] 44130- 6707 Nov, Schizoaffective disorder, depressive type F25.1 [place] [address] 76427- 8976 Nov, Paranoid schizophrenia F20.0 [place] [id number] [place] [address] 33383- 4515 Nov, Type 2 diabetes mellitus without complication, without long- term current use of insulin E11.9 ; Morbid obesity due to excess calories E66.01 and Chronic pain syndrome G89.4 [place] [address] [place] [address] 41023- 4500 Oct, Paranoid schizophrenia F20.0 [place] [id number] [place] [address] 71620- 7018 Oct, [place] [id number] [place] [address] 55523- 3747 Oct, Schizoaffective disorder, depressive type F25.1 [place] [id number] [place] [address] 31410- 9001 Oct, Hypothyroidism, unspecified type E03.9 and Other elevated white blood cell (WBC) count D72.828 [place] [id number] [place] [address] 18061- 7111 Oct, Morbid obesity due to excess calories E66.01 ; Chronic obstructive pulmonary disease, unspecified COPD type J44.9 ; History of lupus Z87.39 ; Hypothyroidism, unspecified type E03.9 ; Gastroesophageal reflux disease without esophagitis K21.9 ; Primary insomnia F51.01 and Chronic pain syndrome G89.4 [place] [address] [place] [address] 14631- 3089 Sep, [place] [address] [address]- 4815 Sep, [place] [id number] [place] [address] 50056- 2798 Sep, [place] [address] [place] [address] 98862- 8611 Sep, Paranoid schizophrenia F20.0 [place] [id number] [place] [address] 97118- 7102 Sep, [place] [address] [place] [address] 21848- 7759 Sep, Paranoid schizophrenia F20.0 [place] [address] [address]- 5651 Sep, [place] [id number] [place] [address] 91689- 9815 August, Paranoid schizophrenia F20.0 [place] [address] [place] [address] 93633- 0819 Jul, [place] [id number] [place] [address] 55015- 0107 Jul, Type 2 diabetes mellitus without complication, without long- term current use of insulin E11.9 ; Morbid obesity due to excess calories E66.01 ; Depression with anxiety F41.8 ; Hypothyroidism, unspecified type E03.9 ; Seasonal allergic rhinitis due to other allergic trigger J30.89 ; Pain, dental K08.89 and Gastroesophageal reflux disease without esophagitis K21.9 [facility] [address] [place] [address] [phone] Jul, Dental examination Z01.20 [place] [id number] [place] [address] 68390- 5612 07 Jul, 2016 Paranoid schizophrenia F20.0 [place] [id number] [place] [address] 31168- 1136 13 Jun, 2016 Paranoid schizophrenia F20.0 and Depression with anxiety F41.8 [place] [address] [place] [address] 03684- 5871 Jun, Paranoid schizophrenia F20.0 and Depression with anxiety F41.8 [place] [address] [place] [address] 32467- 7179 09 Jun, 2016 [place] [id number] [place] [address] 66295- 4354 08 Jun, 2016 [facility] [address] [address] -7363 08 Jun, 2016 Seasonal allergic rhinitis due to other allergic trigger J30.89 [facility] [id number] [place] [address] 06768 -6325 May, Sore throat J02.9 ; Other viral agents as the cause of diseases classified elsewhere B97.89 and Acute upper respiratory infection, unspecified J06.9 [place] [id number] [place] [address] 63268- 1089 May, Paranoid schizophrenia F20.0 and Depression with anxiety F41.8 [place] [address] 32806- 7601 Apr, Other seasonal allergic rhinitis J30.2 [place] [address] 96859- 9215 Apr, Paranoid schizophrenia F20.0 and Depression with anxiety F41.8 [facility] [address] 99440 -5455 Apr, Bronchitis J40 and Sore throat J02.9 [place] [address] 10691- 0842 Apr, Type 2 diabetes mellitus without complication, without long- term current use of insulin E11.9 [facility] [place] [address] 95853 -5757 Apr, Bronchitis J40 [place] [address] 30267- 9690 Apr, [place] [id number] [place] [address] 11876- 2853 Apr, [place] [id number] [place] [address] 73402- 5970 Mar, Type 2 diabetes mellitus without complication, [...] R60.9 and Other seasonal allergic rhinitis J30.2 [place] [id number] [place] [address] 45127- 5867 Mar, Paranoid schizophrenia F20.0 and Depression with anxiety F41.8 [facility] [id number] [place] [address] 57625- 8380 Feb, [place] [address] 68570- 1935 Feb, [place] [id number] [place] [address] 81371- 9425 Feb, [place] [address] 54852- 3838 Feb, [place] [id number] [place] [address] 44721- 3019 Feb, Type 2 diabetes mellitus without complication, without long- term current use of insulin E11.9 ; ARIAS on CPAP G47.33 and Preoperative evaluation to rule out surgical contraindication Z01.818 [place] [id number] [place] [address] 79134- 8385 Feb, Paranoid schizophrenia F20.0 and Depression with anxiety F41.8 [place] [id number] [place] [address] [phone] Jan, [facility] [address] [phone] Jan, Paranoid schizophrenia F20.0 and Depression with anxiety F41.8 [facility] [id number] [place] [address] [phone] Jan, [facility] [id number] [place] [address] [phone] Jan, Muscle strain T14.8 [facility] [id number] [place] [address] [phone] Jan, Paranoid schizophrenia F20.0 [facility] [id number] [place] [address] [phone] Jan, [facility] [id number] [place] [address] [phone] Jan, Paranoid schizophrenia F20.0 and Depression with anxiety F41.8 [facility] [id number] [place] [address] [phone] Jan, [facility] [id number] [place] [address] 09247- 2572 Jan, [facility] [id number] [place] [address] 28015- 8453 Dec, [facility] [id number] [place] [address] 58652- 8052 Dec, Paranoid schizophrenia F20.0 [facility] [id number] [place] [address] 75492- 1583 16 Dec, 2015 Paranoid schizophrenia F20.0 and Depression with anxiety F41.8 [facility] [id number] [place] [address] 89969- 6427 Nov, [facility] [id number] [place] [address] 61353- 9295 Nov, Paranoid schizophrenia F20.0 [facility] [id number] [place] [address] 50713- 8516 Nov, Paranoid schizophrenia F20.0 and Depression with anxiety F41.8 [facility] [id number] [place] [address] 79799- 7908 Nov, Type 2 diabetes mellitus without complication, without long- term current use of insulin E11.9 ; Paranoid schizophrenia F20.0 ; Chronic obstructive pulmonary disease, unspecified COPD type J44.9 ; Morbid obesity due to excess calories E66.01 and Parkinsonian tremor G20 [facility] [id number] [place] [address] 49512- 0198 Nov, [address] [place] [id number] [place] [address] 27904- 6537 Oct, Paranoid schizophrenia F20.0 [address] [id number] [place] [address] 20952- 3405 Oct, Paranoid schizophrenia F20.0 [address] [id number] [place] [address] 35529- 5600 Oct, Paranoid schizophrenia F20.0 and Depression with anxiety F41.8 [address] [id number] [place] [address] 47312- 6583 Oct, [address] [id number] [place] [address] 21214- 1531 Oct, Paranoid schizophrenia F20.0 and Depression with anxiety F41.8 [address] [id number] [place] [address] 80483- 6961 Oct, Nasal sore J34.89 [place] [facility] [id number] [place] [address] 23487- 6716 Oct, Type 2 diabetes mellitus without complication, without long- term current use of insulin E11.9 ; Depression with anxiety F41.8 ; Hypothyroidism, unspecified type E03.9 and History of lupus Z87.39 [place] [address] [place] [address] 54639- 7690 Oct, [address] [id number] [place] [address] 79764- 6186 Oct, Type 2 diabetes mellitus without complication, [...] edema R60.9 and History of lupus Z87.39 [facility] [id number] [place] [address] 37449- 5659 Feb, [facility] [id number] [place] [address] 31882- 4244 Jan, [facility] [id number] [place] [address] 31458- 5201 Jan, [facility] [id number] [place] [address] 82104- 1420 Jan, [facility] [id number] [place] [address] 34951- 4229 Dec, [facility] [id number] [place] [address] 01712- 6560 Nov, [facility] [id number] [place] [address] 79568- 2372 Nov, [facility] [id number] [place] [address] 53851- 0905 Oct, [facility] [id number] [place] [address] 90511- 0553 Oct, [facility] [id number] [address]- 9886 Oct, [facility] [id number] [place] [address] 46874- 7239 Sep, Allergic rhinitis 477.9 [facility] [id number] [place] [address] 41772- 6662 Sep, Rhinitis, allergic 477.9 [facility] [id number] [place] [address] 87289- 2670 Sep, Rhinitis, allergic 477.9 [facility] [address] [address]- 3198 Sep, [facility] [place] [facility] [id number] [address]- 4530 August, [facility] [address] [id number] [place] [address]- 7417 August, [facility] [place] [facility] [address] [id number] [place] [address]- 2936 August, [facility] [place] [facility] [address] [id number] [place] [address]- 3966 Jul, [facility] [place] [facility] [address] [id number] [place] [address]- 5612 Jul, [facility] [place] [facility] [address] [id number] [place] [address]- 6016 Jul, [facility] [place] [facility] [address] [id number] [place] [address]- 9980 Jun, [facility] [place] [facility] [address] [id number] [place] [address]- 5155 Jun, [facility] [place] [facility] [address] [id number] [place] [address]- 3930 Jun, [facility] [place] [facility] [address] [id number] [place] [address]- 2851 Jun, [facility] [place] [facility] [address] [id number] [place] [address]- 9196 Jun, [facility] [place] [facility] [address] [id number] [place] [address]- 9120 Jun, [facility] [place] [facility] [address] [id number] [place] [address]- 6850 Jun, [facility] [place] [facility] [address] [id number] [place] [address]- 0230 Jun, [facility] [place] [facility] [address] [id number] [place] [address]- 9546 May, [facility] [place] [facility] [address] [id number] [place] [address]- 4882 May, [facility] [place] [facility] [address] [id number] [place] [address]- 3592 May, [facility] [place] [facility] [address] [id number] [place] [address]- 0556 May, [facility] [place] [facility] [address] [facility] [id number] [place] [address]- 0651 Apr, [facility] [place] [facility] [address] [id number] [place] [address]- 6122 Mar, [facility] [place] [facility] [address] [id number] [place] 1463 Mar, [facility] [place] [facility] [address] [id number] [place] 4215 Mar, [facility] [place] [facility] [address] [id number] [place] [address]- 5224 Mar, [facility] [place] [facility] [address] [id number] [place] [address]- 1467 Mar, [facility] [place] [facility] [address] [id number] [place] 3779 Mar, [facility] [place] [facility] [address] [id number] [place] [address]- 9072 Mar, [facility] [place] [facility] [address] [id number] [place] [address]- 8097 Mar, [facility] [place] [facility] [address] [id number] [address]- 5808 Mar, [facility] [place] [facility] [address] [id number] [place] [address]- 7333 Feb, [facility] [place] [facility] [address] [id number] [place] [address]- 3309 Feb, [facility] [place] [facility] [address] [facility] [id number] [place] [address]- 1996 Feb, [facility] [place] [facility] [address] [id number] [place] [address]- 1051 17 Feb, 2014 [facility] [place] [facility] [address] [id number] [place] [address]- 4576 14 Feb, 2014 [facility] [place] [facility] [address] [id number] [place] [address]- 6797 14 Feb, 2014 [facility] [place] [facility] [address] [id number] [place] [address]- 9519 12 Feb, 2014 [facility] [place] [facility] [address] [id number] [place] [address]- 6320 12 Feb, 2014 [facility] [place] [facility] [address] [id number] [place] [address]- 1877 23 Jan, 2014 [facility] [place] [facility] [address] [id number] [place] [address]- 7430 23 Jan, 2014 [facility] [place] [facility] [address] [id number] [place] [address]- 8609 16 Jan, 2014 [facility] [place] [facility] [address] [id number] [place] [address]- 9879 16 Jan, 2014 [facility] [place] [facility] [address] [id number] [place] [address]- 1267 15 Jan, 2014 [facility] [place] [facility] [address] [id number] [place] [address]- 2044 15 Jan, 2014 [facility] [place] [facility] [address] [id number] [place] [address]- 8231 14 Jan, 2014 [facility] [place] [facility] [address] [id number] [place] [address]- 0704 14 Jan, 2014 [facility] [place] [facility] [address] [id number] [place] [address]- 5974 14 Jan, 2014 [facility] [place] [facility] [address] [id number] [place] [address]- 6307 14 Jan, 2014 [facility] [place] [facility] [address] [id number] [place] [address]- 4868 Dec, [facility] [place] [facility] [address] [id number] [place] [address]- 6223 Dec, [facility] [place] [facility] [address] [id number] [place] [address]- 9159 Dec, [facility] [place] [facility] [address] [id number] [place] [address]- 5820 Dec, [facility] [place] [facility] [address] [id number] [place] [address]- 4173 Nov, [facility] [place] [facility] [address] [id number] [place] [address]- 2479 Nov, [facility] [place] [facility] [address] [id number] [place] [address]- 5840 Nov, [facility] [place] [facility] [address] [id number] [place] [address]- 5654 Nov, [facility] [place] [facility] [address] [id number] [place] [address]- 9203 Nov, [facility] [place] [facility] [address] [id number] [place] [address]- 2725 Oct, [facility] [place] [facility] [address] [id number] [place] [address]- 4298 Oct, [facility] [place] [facility] [address] [id number] [place] [address]- 4513 Oct, [facility] [place] [facility] [address] [id number] [place] [address]- 9864 Oct, [facility] [place] [facility] [address] [id number] [place] [address]- 0396 Sep, [facility] [place] [facility] [address] [id number] [place] [address]- 8592 Sep, [facility] [place] [facility] [address] [id number] [place] [address]- 5501 Sep, [facility] [place] [facility] [address] [id number] [place] [address]- 2229 Sep, [facility] [place] [facility] [address] [id number] [place] [address]- 6906 Sep, [facility] [place] [facility] [address] [id number] [place] [address]- 1417 Sep, [facility] [place] [facility] [address] [id number] [place] [address]- 2641 Sep, [facility] [place] [facility] [address] [id number] [place] [address]- 2509 Sep, [facility] [place] [facility] [address] [id number] [place] [address]- 0945 August, [facility] [place] [facility] [address] [id number] [place] [address]- 8719 August, [facility] [place] [facility] [address] [id number] [place] [address]- 3434 August, [facility] [place] [facility] [address] [id number] [place] [address]- 0069 August, [facility] [place] [facility] [address] [id number] [place] [address]- 8337 August, [facility] [place] [facility] [address] [id number] [place] [address]- 6755 August, [facility] [place] [facility] [address] [id number] [place] [address]- 3183 August, [facility] [place] [facility] [address] [id number] [place] [address]- 8410 Jul, [facility] [place] [facility] [address] [id number] [place] [address]- 2635 Jul, [facility] [place] [facility] [address] [id number] [place] [address]- 8911 Jul, [facility] [place] [facility] [address] [id number] [place] [address]- 5132 Jul, [facility] [place] [facility] [address] [id number] [place] [address]- 7431 Jul, [facility] [place] [facility] [address] [id number] [place] [address]- 6858 Jul, [facility] [place] [facility] [address] [id number] [place] 8626 Jul, [facility] [place] [facility] [address] [id number] [place] [address]- 3144 Jul, [facility] [place] [facility] [address] [id number] [place] [address]- 9192 Jul, [facility] [place] [facility] [address] [id number] [place] [address]- 3110 Jul, [facility] [place] [facility] [address] [id number] [place] [address]- 4161 Jul, [facility] [place] [facility] [address] [id number] [place] [address]- 5578 Jul, [facility] [place] [facility] [address] [id number] [place] [address]- 6569 Jun, [facility] [place] [facility] [address] [id number] [place] [address]- 8291 Jun, [facility] [place] [facility] [address] [id number] [place] [address]- 7353 Jun, [facility] [place] [facility] [address] [id number] [place] [address]- 0530 Jun, [facility] [place] [facility] [address] [id number] [place] [address]- 7505 Jun, [facility] [place] [facility] [address] [id number] [place] [address]- 0973 May, [facility] [place] [facility] [address] [id number] [place] [address]- 0424 May, [facility] [place] [facility] [address] [id number] [place] [address]- 1392 May, [facility] [place] [facility] [address] [id number] [place] [address]- 6482 May, [facility] [place] [facility] [address] [id number] [place] [address]- 3456 May, [facility] [place] [facility] [address] [id number] [place] [address]- 6729 May, [facility] [place] [facility] [address] [id number] [place] [address]- 0652 May, [facility] [place] [facility] [address] [id number] [place] [address]- 8988 May, [facility] [place] [facility] [address] [id number] [place] [address]- 2495 Mar, [facility] [place] [facility] [address] [id number] [place] [address]- 0804 Mar, [facility] [place] [facility] [address] [id number] [place] [address]- 5126 Mar, [facility] [place] [facility] [address] [id number] [place] [address]- 4176 Mar, [facility] [place] [facility] [address] [facility] [id number] [place] [address]- 6186 Mar, [facility] [place] [facility] [address] [id number], [place] [address]- 1317 Mar, [facility] [place] [facility] [address] [id number] [address]- 4399 Feb, [facility] [place] [facility] [address] [id number] [place] [address]- 3160 Feb, [facility] [place] [facility] [address] [facility] [id number] [place] [address]- 4874 Jan, [facility] [place] [facility] [address] [id number] [place] [address]- 6079 Jan, [facility] [place] [facility] [address] [id number] [place] [address]- 3462 Jan, [facility] [address] [id number] [place] [address]- 9103 Jan, [facility] [place] [facility] [address] [id number] [place] [address]- 2024 Jan, [facility] [address] [id number] [place] [address]- 7853 Jan, [facility] [place] [facility] [address] [id number] [place] [address]- 1857 Jan, [facility] [address] [id number] [place] [address]- 3473 Jan, [facility] [place] [facility] [address] [id number] [place] [address]- 3750 Jan, [facility] [place] [facility] [address] [id number] [place] [address]- 1209 Jan, [facility] [address] [id number] [place] [address]- 3656 Dec, [facility] [place] [facility] [address] [id number] [place] [address]- 6724 Nov, [facility] [place] [facility] [address] [id number] [place] [address]- 7637 Nov, [facility] [place] [facility] [address] [id number] [place] [address]- 4730 Nov, [facility] [place] [facility] [address] [id number] [place] [address]- 1958 Oct, [facility] [place] [facility] [address] [id number] [place] [address]- 2544 Oct, [facility] [place] [facility] [address] [id number] [place] [address]- 2546 August, [facility] [place] [facility] [address] [id number] [place] [address]- 8660 Apr, [facility] [address] [id number] [address]- 6499 Apr, [facility] [address] [address]- 7796 Feb, [facility] [address] [id number] [address]- 9835 Feb, [facility] [id number] [address]- 2798 Dec, [facility] [address] [id number] [address]- 7962 Dec, [facility] [address] [address]- 1634 Oct, [facility] [address] [address]- 6014 Oct, [facility] [address] [id number] [address]- 5113 Oct, [facility] [id number] [address]- 0844 Jul, IMMUNIZATIONS No Known Immunizations SOCIAL HISTORY Never Assessed REASON FOR VISIT Refill request PLAN OF CARE VITAL SIGNS MEDICATIONS Medication Instructions Dosage Frequency Start Date End Date Duration Status Triamcinolone Acetonide 0.5 % Externally Once a day apply thin layer to rash 24h Active RESULTS No Results PROCEDURES No [...]
--- OUTSIDE RECORDS SUMMARY | 2018-09-02 13:26 | XMS REPORT ---
Author Author SOTO STRICKLAND Organization [facility] Address [address] [place] [address] Care Team Providers Care Dialysis Biomed Technician Name Role Phone SOTO STRICKLAND Unavailable PROBLEMS Type Condition ICD9-CM Code ENI82-DK Code Onset Dates Condition Status SNOMED Code Problem OAB (overactive bladder) N32.81 Active 346681045 Problem Depression with anxiety F41.8 Active 606406854 Problem Other seasonal allergic rhinitis J30.2 Active 262014762 Problem Chronic obstructive pulmonary disease, unspecified COPD type J44.9 Active 97277925 Problem Tobacco abuse Z72.0 Active 241854755 Problem Morbid obesity due to excess calories E66.01 Active 974922885 Problem Dyslipidemia E78.5 Active 071635078 Problem Hypothyroidism (acquired) E03.9 Active 381042366 Problem Essential hypertension I10 Active 53427336 Problem Diabetic polyneuropathy associated with type 2 diabetes mellitus E11.42 Active 907022273 Problem Type 2 diabetes mellitus with diabetic neuropathic arthropathy, 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 Active 368095675 Problem Type 2 diabetes mellitus without complication, without long-term current use of insulin E11.9 Active 850426574 Problem Paranoid schizophrenia F20.0 Active 41486478 Problem Chronic pain syndrome G89.4 Active 893910288 Problem Migraine without aura and without status migrainosus, not intractable G43.009 Active 686423512 Problem Gastroesophageal reflux disease, esophagitis presence not specified K21.9 Active 834400750 Problem Seasonal allergic rhinitis due to pollen J30.1 Active 91223259 Problem COPD exacerbation J44.1 Active 721104753 Problem Seasonal allergic rhinitis due to other allergic trigger J30.89 Active 998967315 Problem Schizoaffective disorder, depressive type F25.1 Active 09193737 Problem History of lupus Z87.39 Active 115874282 Problem Gastroesophageal reflux disease without esophagitis K21.9 Active 444336618 Problem Menopausal syndrome (hot flashes) N95.1 Active 863077483 Problem Other allergic rhinitis J30.89 Active 908217652 Problem Primary insomnia F51.01 Active 6520376 Problem DM neuro manif type II E11.49 Active 04221334 ALLERGIES No Information ENCOUNTERS Encounter Location Date Diagnosis [facility] [id number] [place] [address] 11373- 8789 Jan, [facility] [address] 40323- 1560 Jan, [facility] [address] 93334- 7896 Jan, [place] [address] 02377- 6508 Jan, [place] [address] 85586- 6380 Dec, Schizoaffective disorder, depressive type F25.1 and BMI 45.0 -49.9, adult Z68.42 [place] [id number] [place] [address] 32732- 7400 Dec, [place] [address] 15690- 5674 Dec, [place] [id number] [place] [address] 27560- 5134 18 Dec, 2017 Acute non-recurrent frontal sinusitis J01.10 [place] [id number] [place] [address] 88433- 3631 18 Dec, 2017 Acute non-recurrent frontal sinusitis J01.10 ; At high risk for falls Z91.81 ; BMI 45.0-49.9, adult Z68.42 and Weakness of left leg R29.898 [place] [id number] [place] [address] 17468- 2110 17 Dec, 2017 [place] [id number] [place] [address] 33227- 1487 17 Dec, 2017 [facility] [address] [place] [address]22 Dec, Schizoaffective disorder, depressive type F25.1 [facility] [id number] [place] [address] 00179 -0040 Dec, Acute nasopharyngitis J00 [facility] [id number] [place] [address] 44327- 0514 Dec, Schizoaffective disorder, depressive type F25.1 [facility] [id number] [place] [address] 22420- 1210 Dec, [place] [id number] [place] [address] 19368- 0196 Nov, Schizoaffective disorder, depressive type F25.1 and BMI 45.0 -49.9, adult Z68.42 [facility] [id number] [place] [address] 30055- 3873 Nov, [facility] [id number] [place] [address] 16888- 1679 Nov, [place] [id number] [place] [address] 16400- 5634 Nov, Schizoaffective disorder, depressive type F25.1 [facility] [id number] [place] [address] 24424- 9079 Nov, Well woman exam Z01.419 ; BMI 45.0-49.9, adult Z68.42 ; Screening breast examination Z12.31 and Dietary counseling and surveillance Z71.3 [facility] [id number] [place] [address] 16458- 9978 Nov, Paranoid schizophrenia F20.0 [place] [id number] [place] [address] 21063- 2294 Nov, Gastroesophageal reflux disease, esophagitis presence not specified K21.9 [facility] [id number] [place] [address] 65996- 1378 Oct, Paranoid schizophrenia F20.0 [facility] [address] [id number] [address] Oct Chronic pain syndrome G89.4 and Schizoaffective disorder, depressive type F25.1 [place] [address], [place] [address]- 3578 Oct, Chronic pain syndrome G89.4 and Schizoaffective disorder, depressive type F25.1 [place] [address] [place] [address] 13203- 8223 Oct, Type 2 diabetes mellitus without complication, without long- term current use of insulin E11.9 [place] [id number] [place] [address] 42861- 8022 Oct, Essential hypertension I10 and DM neuro manif type II E11.49 [place] [id number] [place] [address] 58433- 9186 Oct, [place] [address] [place] [address] 61095- 0528 Oct, Schizoaffective disorder, depressive type F25.1 and BMI 45.0 -49.9, adult Z68.42 [place] [address], [place] [address]- 5334 Oct, [place] [address] [place] [address] 16302- 2070 Oct, Paranoid schizophrenia F20.0 [place] [address] [place] [address] 89178- 2594 Oct, Type 2 diabetes mellitus with diabetic neuropathic arthropathy, 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 ; Essential hypertension I10 ; Hypothyroidism (acquired) E03.9 ; Chronic obstructive pulmonary disease, unspecified COPD type J44.9 and Diabetic polyneuropathy associated with type 2 diabetes mellitus E11.42 [place] [address] [place] [address] 19791- 7210 Sep, Paranoid schizophrenia F20.0 [facility] [address], [place] [address]- 3442 Sep, Paranoid schizophrenia F20.0 and BMI 45.0-49.9, adult Z68.42 [facility] [address] [address]- 9260 Sep, Schizoaffective disorder, depressive type F25.1 [facility] [id number] [place] [address] 05586- 6965 Sep, [facility] [id number] [place] [address] 62266- 1073 Sep, Paranoid schizophrenia F20.0 [facility] [id number] [place] [address] 17857- 5882 Sep, [facility] [id number] [place] [address] 98036- 1391 Sep, Hypothyroidism (acquired) E03.9 [facility] [id number] [place] [address] 90724- 0678 Sep, [facility] [id number] [place] [address] 37788- 1606 August, Schizoaffective disorder, depressive type F25.1 [facility] [address] [address]- 9832 August, [facility] [id number] [place] [address] 82974- 6880 August, [facility] [address], [place] [address]- 6535 August, [facility] [id number] [place] [address] 66143- 4548 August, Paranoid schizophrenia F20.0 [facility] [address], [place] [address]- 7595 August, History of lupus Z87.39 and Chronic pain syndrome G89.4 [facility] [id number] [place] [address] 41534- 9001 August, [facility] [address] 86906 -1826 August, Seasonal allergic rhinitis, unspecified trigger J30.2 and BMI 45.0-49.9, adult Z68.42 [place] [address] 45813- 8506 Jul, Schizoaffective disorder, depressive type F25.1 [place] [address] 80405- 1678 Jul, [place] [address] 99138- 1345 Jul, Hypothyroidism (acquired) E03.9 [place] [address] 40759- 1412 Jul, Chronic obstructive pulmonary disease, unspecified COPD type J44.9 and Type 2 diabetes mellitus without complication, without long-term current use of insulin E11.9 [place] [address] 72643- 1361 Jul, Paranoid schizophrenia F20.0 [place] [address] 24925- 3263 Jun, Hypothyroidism (acquired) E03.9 and Seasonal allergic rhinitis due to pollen J30.1 [facility] [id number] [place] [address] 32310 -9467 Jun, Shortness of breath at rest R06.02 ; COPD exacerbation J44.1 and BMI 45.0-49.9, adult Z68.42 [place] [address] 00245- 9161 Jun, [place] [address] 33971- 5640 Jun, Paranoid schizophrenia F20.0 ; Depression with anxiety F41.8 and BMI 45.0-49.9, adult Z68.42 [facility] [id number] [place] [address] 4246 Jun, Schizoaffective disorder, depressive type F25.1 [facility] [id number] [place] [address] [id number] Jun, Dental caries K02.9 [facility] [address] 798260- 2864 Jun, Paranoid schizophrenia F20.0 [facility] [address]- 1012 May, Migraine without aura and without status migrainosus, not intractable G43.009 ; DM neuro manif type II E11.49 and Type 2 diabetes mellitus without complication, without long-term current use of insulin E11.9 [facility] [id number] [place] [address] 83148- 2799 May, Migraine without aura and without status migrainosus, not intractable G43.009 [facility] [id number] [place] [address] 11872- 9235 May, Depression with anxiety F41.8 [facility] [id number] [place] [address] [id number] May, [facility] [id number] [place] [address] 29964- 1928 May, [facility] [id number] [place] [address] 20853- 5503 May, [facility] [id number] [place] [address] 94158- 2546 May, Hypothyroidism (acquired) E03.9 [facility] [id number] [place] [address] 63131- 8642 May, Paranoid schizophrenia F20.0 [facility] [id number] [place] [address] 09583- 3454 08 May, 2017 Type 2 diabetes mellitus [...] N32.81 and Controlled substance agreement signed Z79.899 [place] [address] 11538- 0207 May, Controlled substance agreement signed Z79.899 [place] [address] 07043- 0916 Apr, [facility] [address] [id number] Apr, Dental examination Z01.20 [place] [address] 66152- 6361 Apr, Paranoid schizophrenia F20.0 [place] [address] 31912- 8871 Apr, Hypertension, unspecified type I10 [place] [address] 86005- 1942 Apr, Paranoid schizophrenia F20.0 [place] [address] 02952- 9481 Apr, [place] [address] 49602- 3373 Apr, Tobacco abuse Z72.0 [place] [address] 34041- 1250 Apr, [facility] [id number] [place] [address] 17093- 3811 Mar, [facility] [id number] [place] [address] 73445- 3259 Mar, Paranoid schizophrenia F20.0 and BMI 45.0-49.9, adult Z68.42 [facility] [id number] [place] [address] 11195- 9453 Mar, Schizoaffective disorder, depressive type F25.1 [facility] [id number] [place] [address] 38421- 1271 Mar, [facility] [address] 04045- 2259 Mar, Hypothyroidism, unspecified type E03.9 [facility] [id number] [place] [address] 96038- 4049 Mar, Schizoaffective disorder, depressive type F25.1 [facility] [id number] [place] [address] 08115 -5920 Feb, Gastroenteritis K52.9 and BMI 45.0-49.9, adult Z68.42 [facility] [id number] [place] [address] 33992- 3752 Feb, [facility] [id number] [place] [address] 03679- 9497 Feb, [facility] [id number] [place] [address] 94479- 5444 Feb, [facility] [id number] [place] [address] 02585- 6875 Feb, [facility] [id number] [place] [address] 02624- 3516 Feb, Paranoid schizophrenia F20.0 [facility] [id number] [place] [address] 54192- 7797 Feb, Gastroesophageal reflux disease without esophagitis K21.9 ; Other seasonal allergic rhinitis J30.2 ; Other allergic rhinitis J30.89 ; Tobacco abuse Z72.0 and BMI 40.0-44.9, adult Z68.41 [place] [id number] [place] [address] 88816- 8800 Feb, Onychomycosis B35.1 ; Callus of foot L84 and DM neuro manif type II E11.49 [place] [address] 02583- 6059 Jan, Chronic allergic rhinitis J30.9 [place] [address] 76029- 4838 Jan, [place] [address] 98377- 2583 Jan, Schizoaffective disorder, depressive type F25.[address] 23400- 8917 Jan, [facility] [address] 95588 -2428 Jan, Sore throat J02.9 and Seasonal allergic rhinitis due to other allergic trigger J30.89 [place] [id number] [place] [address] 25736- 2039 Jan, [facility] [id number] [place] [address] 30292- 4535 Jan, [facility] [address] 59773 -7826 Jan, Chronic allergic rhinitis J30.9 [place] [address] 38953- 7712 27 Dec, 2016 Paranoid schizophrenia F20.0 ; Primary insomnia F51.01 and Schizoaffective disorder, depressive type F25.1 [place] [address] 49907- 4108 Dec, Chronic pain syndrome G89.4 ; Cervicalgia of occipito- atlanto-axial region M54.2 ; Menopausal syndrome (hot flashes) N95.1 and Encounter for immunization Z23 [place] [id number] [place] [address] 08524- 6172 Dec, [place] [address] 75828- 8131 Dec, [place] [address] 83002- 5302 Dec, Paranoid schizophrenia F20.0 [place] [address] 62212- 6497 Dec, Schizoaffective disorder, depressive type F25.1 [place] [address] 97142- 1429 Nov, Hypothyroidism, unspecified type E03.9 [facility] [id number] [place] [address] 60797 -1483 Nov, Acute seasonal allergic rhinitis due to other allergen J30.89 [place] [address] 42700- 0882 Nov, [place] [id number] [place] [address] 68229- 9397 Nov, Hypothyroidism, unspecified type E03.9 and Other elevated white blood cell (WBC) count D72.828 [place] [address] [place] [address] 00026- 8418 Nov, Schizoaffective disorder, depressive type F25.1 [place] [address] 47683- 0998 Nov, Paranoid schizophrenia F20.0 [place] [id number] [place] [address] 13878- 4636 Nov, Type 2 diabetes mellitus without complication, without long- term current use of insulin E11.9 ; Morbid obesity due to excess calories E66.01 and Chronic pain syndrome G89.4 [place] [address] [place] [address] 21908- 2785 Oct, Paranoid schizophrenia F20.0 [place] [id number] [place] [address] 42078- 9683 Oct, [place] [id number] [place] [address] 65373- 6647 Oct, Schizoaffective disorder, depressive type F25.1 [place] [id number] [place] [address] 24551- 0496 Oct, Hypothyroidism, unspecified type E03.9 and Other elevated white blood cell (WBC) count D72.828 [place] [address] [place] [address] 12651- 7368 Oct, Morbid obesity due to excess calories E66.01 ; Chronic obstructive pulmonary disease, unspecified COPD type J44.9 ; History of lupus Z87.39 ; Hypothyroidism, unspecified type E03.9 ; Gastroesophageal reflux disease without esophagitis K21.9 ; Primary insomnia F51.01 and Chronic pain syndrome G89.4 [place] [address] [place] [address] 99068- 7424 Sep, [place] [address], [place] [address]- 2206 Sep, [place] [id number] [place] [address] 36363- 5787 Sep, [place] [address] [place] [address] 10170- 1629 Sep, Paranoid schizophrenia F20.0 [place] [id number] [place] [address] 10698- 2866 Sep, [place] [address] [place] [address] 16433- 2553 Sep, Paranoid schizophrenia F20.0 [place] [address], [place] [address]- 2415 Sep, [place] [id number] [place] [address] 23351- 8032 August, Paranoid schizophrenia F20.0 [place] [address] [place] [address] 34832- 4591 Jul, [place] [id number] [place] [address] 93978- 9738 Jul, Type 2 diabetes mellitus without complication, without long- term current use of insulin E11.9 ; Morbid obesity due to excess calories E66.01 ; Depression with anxiety F41.8 ; Hypothyroidism, unspecified type E03.9 ; Seasonal allergic rhinitis due to other allergic trigger J30.89 ; Pain, dental K08.89 and Gastroesophageal reflux disease without esophagitis K21.9 [facility] [address] [place] [address] [id number] Jul, Dental examination Z01.20 [place] [id number] [place] [address] 32536- 4074 07 Jul, 2016 Paranoid schizophrenia F20.0 [place] [id number] [place] [address] 86156- 8080 13 Jun, 2016 Paranoid schizophrenia F20.0 and Depression with anxiety F41.8 [place] [address] [place] [address] 91144- 1893 Jun, Paranoid schizophrenia F20.0 and Depression with anxiety F41.8 [place] [address] [place] [address] 85032- 5799 09 Jun, 2016 [place] [id number] [place] [address] 68052- 0920 08 Jun, 2016 [facility] [address], [place] [address] -8066 08 Jun, 2016 Seasonal allergic rhinitis due to other allergic trigger J30.89 [facility] [id number] [place] [address] 48010 -7722 May, Sore throat J02.9 ; Other viral agents as the cause of diseases classified elsewhere B97.89 and Acute upper respiratory infection, unspecified J06.9 [place] [id number] [place] [address] 13416- 3123 May, Paranoid schizophrenia F20.0 and Depression with anxiety F41.8 [place] [address] 49782- 3768 Apr, Other seasonal allergic rhinitis J30.2 [place] [address] 61484- 5824 Apr, Paranoid schizophrenia F20.0 and Depression with anxiety F41.8 [facility] [address] 39682 -5392 Apr, Bronchitis J40 and Sore throat J02.9 [place] [address] 21690- 7863 Apr, Type 2 diabetes mellitus without complication, without long- term current use of insulin E11.9 [facility] [place] [address] 60791 -4003 Apr, Bronchitis J40 [place] [address] 13920- 1209 Apr, [place] [id number] [place] [address] 13597- 5504 Apr, [place] [address] [id number] [place] [address] Mar, Type 2 diabetes mellitus without complication, [...] R60.9 and Other seasonal allergic rhinitis J30.2 [place] [address] [address] [place] [id number] [place] [address] Mar, Paranoid schizophrenia F20.0 and Depression with anxiety F41.8 [facility] [address] [place] [id number] [place] [address] Feb, [place] [address] [address] Feb, [place] [address] [address] [place] [id number] [place] [address] Feb, [place] [address] [address] Feb, [place] [address] [address] [place] [id number] [place] [address] Feb, Type 2 diabetes mellitus without complication, without long- term current use of insulin E11.9 ; ARIAS on CPAP G47.33 and Preoperative evaluation to rule out surgical contraindication Z01.818 [place] [address] [address] [place] [id number] [place] [address]- [address] Feb, Paranoid schizophrenia F20.0 and Depression with anxiety F41.8 [place] [address] [address] [place] [id number] [place] [address]- [address] Jan, [place] [address] [address] Jan, Paranoid schizophrenia F20.0 and Depression with anxiety F41.8 [place] [address] [address] [place] [id number] [place] [address]- [address] Jan, [facility] [id number] [place] [address] 83516- 7308 Jan, Muscle strain T14.8 [facility] [id number] [place] [address] 99048- 8161 Jan, Paranoid schizophrenia F20.0 [facility] [id number] [place] [address] 73978- 7888 Jan, [facility] [id number] [place] [address] 97671- 6010 Jan, Paranoid schizophrenia F20.0 and Depression with anxiety F41.8 [facility] [id number] [place] [address] 03619- 6453 Jan, [facility] [id number] [place] [address] 43152- 9626 Jan, [facility] [id number] [place] [address] 69276- 2629 Dec, [facility] [id number] [place] [address] 65591- 5161 Dec, Paranoid schizophrenia F20.0 [facility] [id number] [place] [address] 81375- 3722 16 Dec, 2015 Paranoid schizophrenia F20.0 and Depression with anxiety F41.8 [facility] [id number] [place] [address] 77891- 1481 Nov, [facility] [id number] [place] [address] 23309- 2138 Nov, Paranoid schizophrenia F20.0 [facility] [id number] [place] [address] 69927- 2197 Nov, Paranoid schizophrenia F20.0 and Depression with anxiety F41.8 [facility] [id number] [place] [address] 22913- 8935 Nov, Type 2 diabetes mellitus without complication, without long- term current use of insulin E11.9 ; Paranoid schizophrenia F20.0 ; Chronic obstructive pulmonary disease, unspecified COPD type J44.9 ; Morbid obesity due to excess calories E66.01 and Parkinsonian tremor G20 [facility] [id number] [place] [address] 76917- 5612 Nov, [id number] [place] [address] 87014- 8608 Oct, Paranoid schizophrenia F20.0 [place] [id number] [place] [address] 87233- 5661 Oct, Paranoid schizophrenia F20.0 [address] [id number] [place] [address] 03352- 7802 Oct, Paranoid schizophrenia F20.0 and Depression with anxiety F41.8 [place] [id number] [place] [address] 29882- 1373 Oct, [address] [id number] [place] [address] 77205- 1784 Oct, Paranoid schizophrenia F20.0 and Depression with anxiety F41.8 [address] [id number] [place] [address] 26172- 4214 Oct, Nasal sore J34.89 [place] [id number] [place] [address] 10675- 8989 Oct, Type 2 diabetes mellitus without complication, without long- term current use of insulin E11.9 ; Depression with anxiety F41.8 ; Hypothyroidism, unspecified type E03.9 and History of lupus Z87.39 [address] [id number] [place] [address] 34927- 6979 Oct, [place] [id number] [place] [address] 93626- 5662 Oct, Type 2 diabetes mellitus without complication, [...] edema R60.9 and History of lupus Z87.39 [facility] [id number] [place] [address] 68284- 5702 Feb, [facility] [id number] [place] [address] 97206- 5835 Jan, [facility] [id number] [place] [address] 15307- 4557 Jan, [facility] [id number] [place] [address] 09652- 3719 Jan, [facility] [id number] [place] [address] 40345- 1925 Dec, [facility] [id number] [place] [address] 35734- 2222 Nov, [facility] [id number] [place] [address] 34696- 7468 Nov, [facility] [id number] [place] [address] 73296- 8887 Oct, [facility] [id number] [place] [address] 57402- 6483 Oct, [facility] [id number] [address]- 3129 Oct, [facility] [id number] [place] [address] 85130- 0766 Sep, Allergic rhinitis 477.9 [facility] [id number] [place] [address] 19837- 4989 Sep, Rhinitis, allergic 477.9 [facility] [id number] [place] [address] 14647- 0663 Sep, Rhinitis, allergic 477.9 [facility] [address] [address]- 2007 Sep, [facility] [place] [facility] [id number] [place] [address]- 2051 August, [facility] [address] [id number] [place] [address]- 2867 August, [facility] [place] [facility] [address] [id number] [place] [address]- 7606 August, [facility] [place] [facility] [address] [id number] [place] [address]- 4372 Jul, [facility] [place] [facility] [address] [id number] [place] [address]- 5177 Jul, [facility] [place] [facility] [address] [id number] [place] [address]- 1673 Jul, [facility] [place] [facility] [address] [id number] [place] [address]- 7611 Jun, [facility] [place] [facility] [address] [id number] [place] [address]- 6953 Jun, [facility] [place] [facility] [address] [id number] [place] [address]- 6893 Jun, [facility] [place] [facility] [address] [id number] [place] [address]- 3090 Jun, [facility] [place] [facility] [address] [id number] [place] [address]- 7553 Jun, [facility] [place] [facility] [address] [id number] [place] [address]- 2727 Jun, [facility] [place] [facility] [address] [id number] [place] [address]- 7364 Jun, [facility] [place] [facility] [address] [id number] [place] [address]- 3678 Jun, [facility] [place] [facility] [address] [id number] [place] [address]- 8346 May, [facility] [place] [facility] [address] [id number] [place] [address]- 6441 May, [facility] [place] [facility] [address] [id number] [place] [address]- 2874 May, [facility] [place] [facility] [address] [id number] [place] [address]- 7046 May, [facility] [place] [facility] [address] [facility] [id number] [place] [address]- 7846 Apr, [facility] [place] [facility] [address] [id number] [place] [address]- 4916 Mar, [facility] [place] [facility] [address] [id number] [place] 3615 Mar, [facility] [place] [facility] [address] [id number] [place] 6553 Mar, [facility] [place] [facility] [address] [id number] [place] [address]- 0692 Mar, [facility] [place] [facility] [address] [id number] [place] [address]- 5098 Mar, [facility] [place] [facility] [address] [id number] [place] 4942 Mar, [facility] [place] [facility] [address] [id number] [place] [address]- 0213 Mar, [facility] [place] [facility] [address] [id number] [place] [address]- 7889 Mar, [facility] [place] [facility] [address] [id number], [place] [address]- 9406 Mar, [facility] [place] [facility] [address] [id number] [place] [address]- 8369 Feb, [facility] [place] [facility] [address] [id number] [place] [address]- 1595 Feb, [facility] [place] [facility] [address] [facility] [id number] [place] [address]- 6996 Feb, [facility] [place] [facility] [address] [id number] [place] [address]- 6509 17 Feb, 2014 [facility] [place] [facility] [address] [id number] [place] [address]- 0846 14 Feb, 2014 [facility] [place] [facility] [address] [id number] [place] [address]- 7988 14 Feb, 2014 [facility] [place] [facility] [address] [id number] [place] [address]- 0849 12 Feb, 2014 [facility] [place] [facility] [address] [id number] [place] [address]- 3288 12 Feb, 2014 [facility] [place] [facility] [address] [id number] [place] [address]- 1712 23 Jan, 2014 [facility] [place] [facility] [address] [id number] [place] [address]- 5760 23 Jan, 2014 [facility] [place] [facility] [address] [id number] [place] [address]- 2100 16 Jan, 2014 [facility] [place] [facility] [address] [id number] [place] [address]- 4975 16 Jan, 2014 [facility] [place] [facility] [address] [id number] [place] [address]- 7086 15 Jan, 2014 [facility] [place] [facility] [address] [id number] [place] [address]- 0135 15 Jan, 2014 [facility] [place] [facility] [address] [id number] [place] [address]- 9885 14 Jan, 2014 [facility] [place] [facility] [address] [id number] [place] [address]- 7257 14 Jan, 2014 [facility] [place] [facility] [address] [id number] [place] [address]- 2034 14 Jan, 2014 [facility] [place] [facility] [address] [id number] [place] [address]- 4963 14 Jan, 2014 [facility] [place] [facility] [address] [id number] [place] [address]- 1828 Dec, [facility] [place] [facility] [address] [id number] [place] [address]- 7667 Dec, [facility] [place] [facility] [address] [id number] [place] [address]- 1706 Dec, [facility] [place] [facility] [address] [id number] [place] [address]- 2264 Dec, [facility] [place] [facility] [address] [id number] [place] [address]- 0975 Nov, [facility] [place] [facility] [address] [id number] [place] [address]- 7253 Nov, [facility] [place] [facility] [address] [id number] [place] [address]- 1744 Nov, [facility] [place] [facility] [address] [id number] [place] [address]- 7842 Nov, [facility] [place] [facility] [address] [id number] [place] [address]- 0955 Nov, [facility] [place] [facility] [address] [id number] [place] [address]- 8177 Oct, [facility] [place] [facility] [address] [id number] [place] [address]- 9090 Oct, [facility] [place] [facility] [address] [id number] [place] [address]- 6659 Oct, [facility] [place] [facility] [address] [id number] [place] [address]- 9337 Oct, [facility] [place] [facility] [address] [id number] [place] [address]- 7132 Sep, [facility] [place] [facility] [address] [id number] [place] [address]- 9885 Sep, [facility] [place] [facility] [address] [id number] [place] [address]- 8258 Sep, [facility] [place] [facility] [address] [id number] [place] [address]- 3549 Sep, [facility] [place] [facility] [address] [id number] [place] [address]- 6998 Sep, [facility] [place] [facility] [address] [id number] [place] [address]- 9206 Sep, [facility] [place] [facility] [address] [id number] [place] [address]- 6503 Sep, [facility] [place] [facility] [address] [id number] [place] [address]- 0232 Sep, [facility] [place] [facility] [address] [id number] [place] [address]- 8746 August, [facility] [place] [facility] [address] [id number] [place] [address]- 7905 August, [facility] [place] [facility] [address] [id number] [place] [address]- 4877 August, [facility] [place] [facility] [address] [id number] [place] [address]- 4446 August, [facility] [place] [facility] [address] [id number] [place] [address]- 5368 August, [facility] [place] [facility] [address] [id number] [place] [address]- 9792 August, [facility] [place] [facility] [address] [id number] [place] [address]- 4598 August, [facility] [place] [facility] [address] [id number] [place] [address]- 6905 Jul, [facility] [place] [facility] [address] [id number] [place] [address]- 4960 Jul, [facility] [place] [facility] [address] [id number] [place] [address]- 5778 Jul, [facility] [place] [facility] [address] [id number] [place] [address]- 7996 Jul, [facility] [place] [facility] [address] [id number] [place] [address]- 2475 Jul, [facility] [place] [facility] [address] [id number] [place] [address]- 2673 Jul, [facility] [place] [facility] [address] [id number] [place] 8766 Jul, [facility] [place] [facility] [address] [id number] [place] [address]- 2514 Jul, [facility] [place] [facility] [address] [id number] [place] [address]- 7835 Jul, [facility] [place] [facility] [address] [id number] [place] [address]- 2448 Jul, [facility] [place] [facility] [address] [id number] [place] [address]- 5639 Jul, [facility] [place] [facility] [address] [id number] [place] [address]- 1704 Jul, [facility] [place] [facility] [address] [id number] [place] [address]- 9763 Jun, [facility] [place] [facility] [address] [id number] [place] [address]- 4532 Jun, [facility] [place] [facility] [address] [id number] [place] [address]- 8720 Jun, [facility] [place] [facility] [address] [id number] [place] [address]- 6309 Jun, [facility] [place] [facility] [address] [id number] [place] [address]- 3882 Jun, [facility] [place] [facility] [address] [id number] [place] [address]- 0205 May, [facility] [place] [facility] [address] [id number] [place] [address]- 5426 May, [facility] [place] [facility] [address] [id number] [place] [address]- 2355 May, [facility] [place] [facility] [address] [id number] [place] [address]- 4134 May, [facility] [place] [facility] [address] [id number] [place] [address]- 9686 May, [facility] [place] [facility] [address] [id number] [place] [address]- 8910 May, [facility] [place] [facility] [address] [id number] [place] [address]- 2365 May, [facility] [place] [facility] [address] [id number] [place] [address]- 8065 May, [facility] [place] [facility] [address] [id number] [place] [address]- 9256 Mar, [facility] [place] [facility] [address] [id number] [place] [address]- 1181 Mar, [facility] [place] [facility] [address] [id number] [place] [address]- 2264 Mar, [facility] [place] [facility] [address] [id number] [place] [address]- 6331 Mar, [facility] [place] [facility] [address] [facility] [id number] [place] [address]- 8844 Mar, [facility] [place] [facility] [address] [id number], [place] [address]- 5952 Mar, [facility] [place] [facility] [address] [id number], [place] [address]- 9549 Feb, [facility] [place] [facility] [address] [id number] [place] [address]- 1092 Feb, [facility] [place] [facility] [address] [facility] [id number] [place] [address]- 3637 Jan, [facility] [place] [facility] [address] [id number] [place] [address]- 6372 Jan, [facility] [place] [facility] [address] [id number] [place] [address]- 7896 Jan, [facility] [address] [id number] [place] [address]- 1922 Jan, [facility] [place] [facility] [address] [id number] [place] [address]- 1397 Jan, [facility] [address] [id number] [place] [address]- 0079 Jan, [facility] [place] [facility] [address] [id number] [place] [address]- 7226 Jan, [facility] [address] [id number] [place] [address]- 3196 Jan, [facility] [place] [facility] [address] [id number] [place] [address]- 6687 Jan, [facility] [place] [facility] [address] [id number] [place] [address]- 8335 Jan, [facility] [address] [id number] [place] [address]- 5027 Dec, [facility] [place] [facility] [address] [id number] [place] [address]- 0652 Nov, [facility] [place] [facility] [address] [id number] [place] [address]- 5598 Nov, [facility] [place] [facility] [address] [id number] [place] [address]- 1116 Nov, [facility] [place] [facility] [address] [id number] [place] [address]- 8837 Oct, [facility] [place] [facility] [address] [id number] [place] [address]- 2541 Oct, [facility] [place] [facility] [address] [id number] [place] [address]- 2546 August, [facility] [place] [facility] [address] [id number] [place] [address]- 8536 Apr, [facility] [address] [id number], [place] [address]- 2589 Apr, [facility] [address] [address] 1063 Feb, [facility] [id number], [place] [address]- 2620 Feb, [facility] [id number] 2565 Dec, [facility] [id number], [place] [address]- 3356 Dec, [facility] [id number] [address] 2427 Oct, [facility] [id number], [place] [address]- 7410 Oct, [facility] [id number], [place] [address]- 4351 Oct, [facility] [id number], [place] [address]- 4748 Jul, IMMUNIZATIONS No Known Immunizations SOCIAL HISTORY [...] for psychosis/mental illness , last one in [place] at [facility] 4 years ago
--- OUTSIDE RECORDS SUMMARY | 2018-09-02 13:27 | XMS REPORT ---
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 Name Role Phone SOTO STRICKLAND Unavailable PROBLEMS Type Condition ICD9-CM Code BAT86-LS Code Onset Dates Condition Status SNOMED Code Problem OAB (overactive bladder) N32.81 Active 781015707 Problem Depression with anxiety F41.8 Active 398810562 Problem Other seasonal allergic rhinitis J30.2 Active 959514561 Problem Chronic obstructive pulmonary disease, unspecified COPD type J44.9 Active 27044650 Problem Tobacco abuse Z72.0 Active 261628736 Problem Morbid obesity due to excess calories E66.01 Active 808993732 Problem Dyslipidemia E78.5 Active 303837120 Problem Hypothyroidism (acquired) E03.9 Active 206885332 Problem Essential hypertension I10 Active 81513464 Problem Diabetic polyneuropathy associated with type 2 diabetes mellitus E11.42 Active 672167866 Problem Type 2 diabetes mellitus with diabetic neuropathic arthropathy, 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 Active 882206456 Problem Type 2 diabetes mellitus without complication, without long-term current use of insulin E11.9 Active 893339812 Problem Paranoid schizophrenia F20.0 Active 80112608 Problem Chronic pain syndrome G89.4 Active 637695496 Problem Migraine without aura and without status migrainosus, not intractable G43.009 Active 065890406 Problem Gastroesophageal reflux disease, esophagitis presence not specified K21.9 Active 596298004 Problem Seasonal allergic rhinitis due to pollen J30.1 Active 74671400 Problem COPD exacerbation J44.1 Active 970174783 Problem Seasonal allergic rhinitis due to other allergic trigger J30.89 Active 035366469 Problem Schizoaffective disorder, depressive type F25.1 Active 95364482 Problem History of lupus Z87.39 Active 390341332 Problem Gastroesophageal reflux disease without esophagitis K21.9 Active 571345798 Problem Menopausal syndrome (hot flashes) N95.1 Active 807608890 Problem Other allergic rhinitis J30.89 Active 958571840 Problem Primary insomnia F51.01 Active 5694103 Problem DM neuro manif type II E11.49 Active 71312168 ALLERGIES No Information ENCOUNTERS Encounter Location Date Diagnosis [facility] [id number] [place] [address] 71902- 3450 Jan, [facility] [id number] [place] [address] 80150- 0069 Jan, [facility] [id number] [place] [address] 56501- 8563 Jan, [facility] [id number] [place] [address] 86775- 4585 Dec, [facility] [id number] [place] [address] 17715- 1853 18 Dec, 2017 [facility] [id number] [place] [address] 96703- 6451 17 Dec, 2017 [facility] [id number] [place] [address] 35113- 9125 Dec, [facility] [id number] [place] [address] 63126- 2790 Dec, Schizoaffective disorder, depressive type F25.1 [facility] [id number] [place] [address] 27429 -4851 Dec, Acute nasopharyngitis J00 [facility] [id number] [place] [address] 03268- 5087 05 Dec, 2017 Schizoaffective disorder, depressive type F25.1 [facility] [id number] [place] [address] 48128- 7149 Dec, [facility] [id number] [place] [address] 09596- 6755 Nov, Schizoaffective disorder, depressive type F25.1 and BMI 45.0 -49.9, adult Z68.42 [place] [address] [address] 8540 Nov, [place] [id number] [place] [address] 74658- 2467 Nov, [place] [address] [place] [address] 22074- 8674 Nov, Schizoaffective disorder, depressive type F25.1 [place] [id number] [place] [address] 18582- 5851 Nov, Well woman exam Z01.419 ; BMI 45.0-49.9, adult Z68.42 ; Screening breast examination Z12.31 and Dietary counseling and surveillance Z71.3 [place] [address] [place] [address] 29756- 3998 Nov, Paranoid schizophrenia F20.0 [place] [id number] [place] [address] 37218- 3994 Nov, Gastroesophageal reflux disease, esophagitis presence not specified K21.9 [place] [address] [place] [address] 67697- 4624 Oct, Paranoid schizophrenia F20.0 [place] [id number] [place] [address] Oct Chronic pain syndrome G89.4 and Schizoaffective disorder, depressive type F25.1 [place] [address] [place] [address] 21551- 0131 Oct, Chronic pain syndrome G89.4 and Schizoaffective disorder, depressive type F25.1 [place] [address] [place] [address] 06965- 2344 Oct, Type 2 diabetes mellitus without complication, without long- term current use of insulin E11.9 [place] [address] [place] [address] 08072- 6014 Oct, Essential hypertension I10 and DM neuro manif type II E11.49 [place] [address] [place] [address] 15308- 3105 Oct, [facility] [id number] [place] [address] 17618- 2445 Oct, Schizoaffective disorder, depressive type F25.1 and BMI 45.0 -49.9, adult Z68.42 [place] [id number] [place] [address] 37230- 4656 Oct, [place] [id number] [place] [address] 74033- 4981 Oct, Paranoid schizophrenia F20.0 [place] [id number] [place] [address] 26260- 8054 Oct, Type 2 diabetes mellitus with diabetic neuropathic arthropathy, 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 ; Essential hypertension I10 ; Hypothyroidism (acquired) E03.9 ; Chronic obstructive pulmonary disease, unspecified COPD type J44.9 and Diabetic polyneuropathy associated with type 2 diabetes mellitus E11.42 [place] [id number] [place] [address] 94287- 0960 Sep, Paranoid schizophrenia F20.0 [place] [id number] [place] [address] 38357- 4643 Sep, Paranoid schizophrenia F20.0 and BMI 45.0-49.9, adult Z68.42 [place] [id number] [place] [address] 65670- 4816 Sep, Schizoaffective disorder, depressive type F25.1 [place] [id number] [address] 3816 Sep, [place] [id number] [place] [address] 82597- 3194 Sep, Paranoid schizophrenia F20.0 [place] [id number] [place] [address] 01673- 2882 Sep, [place] [id number] [place] [address] 28577- 5863 Sep, Hypothyroidism (acquired) E03.9 [facility] [id number] [place] [address] 72586- 3356 Sep, [facility] [id number] [place] [address] 90362- 2876 August, Schizoaffective disorder, depressive type F25.1 [facility] [id number] [place] [address] 77283- 0760 August, [facility] [id number] [place] [address] 36662- 1481 August, [facility] [id number] [place] [address] 52909- 3536 August, [facility] [id number] [place] [address] 94403- 8326 August, Paranoid schizophrenia F20.0 [facility] [id number] [place] [address] 39974- 1554 August, History of lupus Z87.39 and Chronic pain syndrome G89.4 [facility] [id number] [place] [address] 82807- 1609 August, [facility] [id number] [place] [address] 96579 -4013 August, Seasonal allergic rhinitis, unspecified trigger J30.2 and BMI 45.0-49.9, adult Z68.42 [facility] [id number] [place] [address] 93553- 8488 Jul, Schizoaffective disorder, depressive type F25.1 [facility] [id number] [place] [address] 63902- 8037 Jul, [facility] [id number] [place] [address] 38836- 8687 Jul, Hypothyroidism (acquired) E03.9 [facility] [id number] [place] [address] 86716- 1715 11 Jul, 2017 Chronic obstructive pulmonary disease, unspecified COPD type J44.9 and Type 2 diabetes mellitus without complication, without long-term current use of insulin E11.9 [place] [address] 92147- 1441 10 Jul, 2017 Paranoid schizophrenia F20.0 [place] [address] 95101- 7165 Jun, Hypothyroidism (acquired) E03.9 and Seasonal allergic rhinitis due to pollen J30.1 [facility] [address] 69029 -4076 Jun, Shortness of breath at rest R06.02 ; COPD exacerbation J44.1 and BMI 45.0-49.9, adult Z68.42 [place] [address] 18070- 4415 Jun, [place] [address] 09159- 6343 Jun, Paranoid schizophrenia F20.0 ; Depression with anxiety F41.8 and BMI 45.0-49.9, adult Z68.42 [place] [address] 31131- 1224 20 Jun, 2017 Schizoaffective disorder, depressive type F25.1 [facility] [address] [id number] Jun, 2017 Dental caries K02.9 [place] [address] 07239- 1910 12 Jun, 2017 Paranoid schizophrenia F20.0 [place] [address] 09122- 6698 May, Migraine without aura and without status migrainosus, not intractable G43.009 ; DM neuro manif type II E11.49 and Type 2 diabetes mellitus without complication, without long-term current use of insulin E11.9 [facility] [address] [place] [address] 14277- 5297 May, Migraine without aura and without status migrainosus, not intractable G43.009 [facility] [address] [place] [address] 86999- 2703 May, Depression with anxiety F41.8 [facility] [address] [place] [address] [id number] May, [facility] [id number] [place] [address] 06010- 4835 May, [place] [id number] [place] [address] 51520- 4981 May, [facility] [id number] [place] [address] 10572- 2517 May, Hypothyroidism (acquired) E03.9 [facility] [id number] [place] [address] 15944- 6830 May, Paranoid schizophrenia F20.0 [facility] [id number] [place] [address] 64582- 0407 May, Type 2 diabetes mellitus without complication, [...] N32.81 and Controlled substance agreement signed Z79.899 [place] [address] [place] [address] 48912- 8053 02 Feb, 2018 Controlled substance agreement signed Z79.899 [facility] [address], [place] [address]- 4180 Apr, [facility] [id number] [place] [address] [id number] Apr, Dental examination Z01.20 [facility] [id number] [place] [address] 29785- 2971 Apr, Paranoid schizophrenia F20.0 [facility] [id number] [place] [address] 89562- 4000 Apr, Hypertension, unspecified type I10 [facility] [id number] [place] [address] 08531- 5667 Apr, Paranoid schizophrenia F20.0 [facility] [id number] [place] [address] 28689- 2353 Apr, [facility] [id number] [place] [address] 45307- 4393 Apr, Tobacco abuse Z72.0 [facility] [id number] [place] [address] 24246- 3107 Apr, [facility] [id number] [place] [address] 03974- 4013 Mar, [facility] [id number] [place] [address] 40574- 8435 Mar, Paranoid schizophrenia F20.0 and BMI 45.0-49.9, adult Z68.42 [facility] [id number] [place] [address] 30072- 2401 Mar, Schizoaffective disorder, depressive type F25.1 [facility] [id number] [place] [address] 76060- 8364 14 Mar, 2017 [facility] [id number] [place] [address] 87105- 4451 Mar, Hypothyroidism, unspecified type E03.9 [place] [id number] [place] [address] 84212- 1495 Mar, Schizoaffective disorder, depressive type F25.1 [facility] [id number] [place] [address] 77018 -5123 Feb, Gastroenteritis K52.9 and BMI 45.0-49.9, adult Z68.42 [place] [address] 57611- 4485 Feb, [place] [address] 72218- 5071 Feb, [place] [address] 40294- 0083 Feb, [place] [address] 57882- 5420 Feb, [place] [address] 25235- 7460 Feb, Paranoid schizophrenia F20.0 [place] [address] 78400- 2346 Feb, Gastroesophageal reflux disease without esophagitis K21.9 ; Other seasonal allergic rhinitis J30.2 ; Other allergic rhinitis J30.89 ; Tobacco abuse Z72.0 and BMI 40.0-44.9, adult Z68.41 [place] [id number] [place] [address] 51194- 2945 Feb, Onychomycosis B35.1 ; Callus of foot L84 and DM neuro manif type II E11.49 [place] [address] 96200- 4523 Jan, Chronic allergic rhinitis J30.9 [place] [id number] [place] [address] 18391- 3809 Jan, [place] [id number] [place] [address] 64138- 1969 Jan, Schizoaffective disorder, depressive type F25.1 [facility] [address], [place] [address]- 8017 Jan, [facility] [address] [place] [address] 01999 -8196 Jan, Sore throat J02.9 and Seasonal allergic rhinitis due to other allergic trigger J30.89 [facility] [id number] [place] [address] 40782- 0405 Jan, [facility] [id number] [place] [address] 60548- 3657 Jan, [facility] [id number] [place] [address] 04226 -8153 Jan, Chronic allergic rhinitis J30.9 [place] [id number] [place] [address] 45462- 2020 Dec, Paranoid schizophrenia F20.0 ; Primary insomnia F51.01 and Schizoaffective disorder, depressive type F25.1 [facility] [address] [place] [address] 50599- 1833 Dec, Chronic pain syndrome G89.4 ; Cervicalgia of occipito- atlanto-axial region M54.2 ; Menopausal syndrome (hot flashes) N95.1 and Encounter for immunization Z23 [place] [address] [place] [address] 15387- 1469 14 Dec, 2016 [facility] [id number] [place] [address] 04369- 4430 13 Dec, 2016 [place] [id number] [place] [address] 59124- 1766 08 Dec, 2016 Paranoid schizophrenia F20.0 [facility] [id number] [place] [address] 94184- 5045 Dec, Schizoaffective disorder, depressive type F25.1 [place] [id number] [place] [address] 15747- 1896 Nov, Hypothyroidism, unspecified type E03.9 [facility] [address] [place] [address] 08302 -9059 Nov, Acute seasonal allergic rhinitis due to other allergen J30.89 [facility] [address] [place] [address] 02080- 7007 Nov, [place] [id number] [place] [address] 15435- 9696 Nov, Hypothyroidism, unspecified type E03.9 and Other elevated white blood cell (WBC) count D72.828 [place] [id number] [place] [address] 09088- 3140 Nov, Schizoaffective disorder, depressive type F25.1 [place] [id number] [place] [address] 90690- 4461 Nov, Paranoid schizophrenia F20.0 [place] [id number] [place] [address] 92343- 7668 Nov, Type 2 diabetes mellitus without complication, without long- term current use of insulin E11.9 ; Morbid obesity due to excess calories E66.01 and Chronic pain syndrome G89.4 [place] [id number] [place] [address] 84511- 9974 Oct, Paranoid schizophrenia F20.0 [place] [id number] [place] [address] 30793- 1164 Oct, [place] [id number] [place] [address] 97485- 2182 Oct, Schizoaffective disorder, depressive type F25.1 [place] [id number] [place] [address] 34495- 8235 Oct, Hypothyroidism, unspecified type E03.9 and Other elevated white blood cell (WBC) count D72.828 [place] [id number] [place] [address] 70737- 6374 Oct, Morbid obesity due to excess calories E66.01 ; Chronic obstructive pulmonary disease, unspecified COPD type J44.9 ; History of lupus Z87.39 ; Hypothyroidism, unspecified type E03.9 ; Gastroesophageal reflux disease without esophagitis K21.9 ; Primary insomnia F51.01 and Chronic pain syndrome G89.4 [facility] [id number] [place] [address] 80235- 4258 Sep, [facility] [id number] [place] [address] 21762- 2793 Sep, [facility] [id number] [place] [address] 86279- 3117 Sep, [facility] [id number] [place] [address] 91850- 5559 Sep, Paranoid schizophrenia F20.0 [facility] [id number] [place] [address] 98535- 8266 Sep, [facility] [id number] [place] [address] 67012- 7764 Sep, Paranoid schizophrenia F20.0 [facility] [id number] [place] [address] 64102- 6398 Sep, [facility] [id number] [place] [address] 53707- 9622 August, Paranoid schizophrenia F20.0 [facility] [id number] [place] [address] 31835- 4660 Jul, [facility] [id number] [place] [address] 81015- 7887 Jul, Type 2 diabetes mellitus without complication, without long- term current use of insulin E11.9 ; Morbid obesity due to excess calories E66.01 ; Depression with anxiety F41.8 ; Hypothyroidism, unspecified type E03.9 ; Seasonal allergic rhinitis due to other allergic trigger J30.89 ; Pain, dental K08.89 and Gastroesophageal reflux disease without esophagitis K21.9 [facility] [address] [address] 12 Jul, 2016 Dental examination Z01.20 [place] [id number] [place] [address] 89186- 3045 07 Jul, 2016 Paranoid schizophrenia F20.0 [place] [id number] [place] [address] 40158- 0229 13 Jun, 2016 Paranoid schizophrenia F20.0 and Depression with anxiety F41.8 [place] [id number] [place] [address] 96852- 7874 10 Jun, 2016 Paranoid schizophrenia F20.0 and Depression with anxiety F41.8 [place] [id number] [place] [address] 70152- 9566 09 Jun, 2016 [place] [id number] [place] [address] 36043- 6040 Jun, [facility] [place] [id number] [place] [address] 66116 -2703 Jun, Seasonal allergic rhinitis due to other allergic trigger J30.89 [facility] [place] [id number] [place] [address] 23341 -4564 25 May, 2016 Sore throat J02.9 ; Other viral agents as the cause of diseases classified elsewhere B97.89 and Acute upper respiratory infection, unspecified J06.9 [place] [id number] [place] [address] 42586- 2211 08 May, 2016 Paranoid schizophrenia F20.0 and Depression with anxiety F41.8 [place] [id number] [place] [address] 21446- 4260 Apr, Other seasonal allergic rhinitis J30.2 [place] [id number] [place] [address] 68508- 1290 Apr, Paranoid schizophrenia F20.0 and Depression with anxiety F41.8 [facility] [place] [id number] [place] [address] 61749 -5815 Apr, Bronchitis J40 and Sore throat J02.9 [facility] [address] [place] [address] 51863- 6358 Apr, Type 2 diabetes mellitus without complication, without long- term current use of insulin E11.9 [facility] [address] [place] [address] 64795 -7452 Apr, Bronchitis J40 [facility] [id number] [place] [address] 54237- 6568 Apr, [facility] [id number] [place] [address] 43836- 8331 Apr, [place] [id number] [place] [address] 96964- 3362 Mar, Type 2 diabetes mellitus without complication, [...] R60.9 and Other seasonal allergic rhinitis J30.2 [place] [address] [place] [address] 56816- 9760 Mar, Paranoid schizophrenia F20.0 and Depression with anxiety F41.8 [facility] [address] [place] [address] 41069- 2868 Feb, [place] [id number] [place] [address] 06232- 0168 Feb, [place] [id number] [place] [address] 28870- 0150 Feb, [place] [id number] [place] [address] [phone]- [phone] Feb, [place] [address] [id number] [address] 14 Feb, 2016 Type 2 diabetes mellitus without complication, without long- term current use of insulin E11.9 ; ARIAS on CPAP G47.33 and Preoperative evaluation to rule out surgical contraindication Z01.818 [facility] [id number] [place] [address] 87822- 8838 09 Feb, 2016 Paranoid schizophrenia F20.0 and Depression with anxiety F41.8 [facility] [id number] [place] [address] [id number]- 0326 18 Jan, 2016 [facility] [id number] [place] [address] [id number]- 7187 18 Jan, 2016 Paranoid schizophrenia F20.0 and Depression with anxiety F41.8 [place] [id number] [place] [address] 98105- 4067 17 Jan, 2016 [place] [id number] [place] [address] 98223- 7182 14 Jan, 2016 Muscle strain T14.8 [facility] [id number] [place] [address] 74869- 3700 10 Jan, 2016 Paranoid schizophrenia F20.0 [facility] [id number] [place] [address] 92004- 7192 Jan, [facility] [id number] [place] [address] 44777- 4968 Jan, Paranoid schizophrenia F20.0 and Depression with anxiety F41.8 [facility] [id number] [place] [address] 76540- 1973 Jan, [facility] [id number] [place] [address] 24362- 0311 Jan, [facility] [id number] [place] [address] 51050- 5842 Dec, [facility] [id number] [place] [address] 74871- 3383 Dec, Paranoid schizophrenia F20.0 [facility] [address] [address] 8312 Dec, Paranoid schizophrenia F20.0 and Depression with anxiety F41.8 [facility] [address], [place] [address]- 7056 Nov, [facility] [id number] [place] [address] 89573- 1854 Nov, Paranoid schizophrenia F20.0 [facility] [id number] [place] [address] 99972- 2498 Nov, Paranoid schizophrenia F20.0 and Depression with anxiety F41.8 [facility] [address], [place] [address]- 2349 Nov, Type 2 diabetes mellitus without complication, without long- term current use of insulin E11.9 ; Paranoid schizophrenia F20.0 ; Chronic obstructive pulmonary disease, unspecified COPD type J44.9 ; Morbid obesity due to excess calories E66.01 and Parkinsonian tremor G20 [facility] [address], [place] [address]- 7889 Nov, [facility] [address], [place] [address]- 2881 Oct, Paranoid schizophrenia F20.0 [facility] [address], [place] [address]- 8771 Oct, Paranoid schizophrenia F20.0 [facility] [address], [place] [address]- 8210 Oct, Paranoid schizophrenia F20.0 and Depression with anxiety F41.8 [facility] [address], [place] [address]- 8988 Oct, [facility] [address], [place] [address]- 8595 Oct, Paranoid schizophrenia F20.0 and Depression with anxiety F41.8 [place] [id number] [place] [address] 70471- 6554 Oct, Nasal sore J34.89 [place] [id number] [place] [address] 95103- 0555 Oct, Type 2 diabetes mellitus without complication, without long- term current use of insulin E11.9 ; Depression with anxiety F41.8 ; Hypothyroidism, unspecified type E03.9 and History of lupus Z87.39 [place] [id number] [place] [address] 09861- 2748 Oct, [place] [address] 59459- 4526 Oct, Type 2 diabetes mellitus without complication, [...] edema R60.9 and History of lupus Z87.39 [place] [id number] [place] [address] 49290- 3940 Feb, [place] [id number] [place] [address] 04111- 6932 Jan, [place] [id number] [place] [address] 50348- 7743 Jan, [place] [address] 82863- 7638 Jan, [place] [id number] [place] [address] 06441- 3542 Dec, [place] [address] 78261- 1586 Nov, [facility] [id number] [address]- 1079 Nov, [facility] [id number] [address]- 9966 Oct, [facility] [id number] [address]- 4598 Oct, [facility] [id number] [address]- 9672 Oct, [facility] [id number] [address]- 7940 Sep, Allergic rhinitis 477.9 [facility] [id number] [address]- 3031 Sep, Rhinitis, allergic 477.9 [facility] [id number] [address]- 8312 Sep, Rhinitis, allergic 477.9 [facility] [id number] [address]- 1278 Sep, [facility] [id number] [address]- 2945 August, [facility] [id number] [address]- 1963 August, [facility] [id number] [address]- 9735 August, [facility] [id number] [address]- 9633 28 Jul, 2014 [facility] [id number] [address]- 7601 14 Jul, 2014 [facility] [id number] [address]- 4395 13 Jul, 2014 [facility] [id number] [address]- 9436 16 Jun, 2014 [facility] [place] [facility] [address] [id number] [place] [address]- 4474 16 Jun, 2014 [facility] [place] [facility] [address] [id number] [place] [address]- 2898 Jun, [facility] [place] [facility] [address] [id number] [place] [address]- 6425 Jun, [facility] [place] [facility] [address] [id number] [place] [address]- 6013 Jun, [facility] [place] [facility] [address] [id number] [place] [address]- 7609 Jun, [facility] [place] [facility] [address] [id number] [place] [address]- 2421 Jun, [facility] [place] [facility] [address] [id number] [place] [address]- 3856 Jun, [facility] [place] [facility] [address] [id number] [place] [address]- 0635 May, [facility] [place] [facility] [address] [id number] [place] [address]- 4180 May, [facility] [place] [facility] [address] [id number] [place] [address]- 5653 May, [facility] [place] [facility] [address] [id number] [place] [address]- 0470 May, [facility] [place] [facility] [address] [id number] [place] [address]- 7115 Apr, [facility] [place] [facility] [address] [id number] [place] 7084 Mar, [facility] [place] [facility] [address] [id number] [place] [address]- 6613 Mar, [facility] [place] [facility] [address] [id number] [place] [address]- 3054 Mar, [facility] [place] [facility] [address] [id number] [place] [address]- 4963 Mar, [facility] [place] [facility] [address] [id number] [place] 1269 Mar, [facility] [place] [facility] [address] [id number] [place] 7146 Mar, [facility] [place] [facility] [address] [id number] [place] 9348 Mar, [facility] [place] [facility] [address] [id number] [place] [address]- 5497 Mar, [facility] [place] [facility] [address] [id number] [place] [address]- 5518 Mar, [facility] [place] [facility] [address] [id number] [place] [address]- 3176 Feb, [facility] [place] [facility] [address] [id number] [place] [address]- 0307 Feb, [facility] [place] [facility] [address] [id number] [place] [address]- 2411 Feb, [facility] [place] [facility] [address] [id number] [place] [address]- 1512 Feb, [facility] [place] [facility] [address] [facility] [id number] [place] [address]- 2306 Feb, [facility] [place] [facility] [address] [id number] [place] [address]- 1509 Feb, [facility] [place] [facility] [address] [id number] [place] [address]- 4600 Feb, [facility] [place] [facility] [address] [id number] [place] [address]- 9522 Feb, [facility] [place] [facility] [address] [id number] [place] [address]- 9060 Jan, [facility] [place] [facility] [address] [id number] [place] [address]- 5598 Jan, [facility] [place] [facility] [address] [id number] [place] [address]- 5909 16 Jan, 2014 [facility] [place] [facility] [address] [id number] [place] [address]- 6617 16 Jan, 2014 [facility] [place] [facility] [address] [id number] [place] [address]- 8200 15 Jan, 2014 [facility] [place] [facility] [address] [id number] [place] [address]- 8759 15 Jan, 2014 [facility] [place] [facility] [address] [id number] [place] [address]- 3876 14 Jan, 2014 [facility] [place] [facility] [address] [id number] [place] [address]- 4551 14 Jan, 2014 [facility] [place] [facility] [address] [id number] [place] [address]- 4965 14 Jan, 2014 [facility] [place] [facility] [address] [id number] [place] [address]- 7928 14 Jan, 2014 [facility] [place] [facility] [address] [id number] [place] [address]- 1981 18 Dec, 2013 [facility] [place] [facility] [address] [id number] [place] [address]- 2634 18 Dec, 2013 [facility] [place] [facility] [address] [id number] [place] [address]- 0416 10 Dec, 2013 [facility] [place] [facility] [address] [id number] [place] [address]- 9960 10 Dec, 2013 [facility] [place] [facility] [address] [id number] [place] [address]- 9662 Nov, [facility] [place] [facility] [address] [id number] [place] [address]- 9346 Nov, [facility] [place] [facility] [address] [id number] [place] [address]- 5045 Nov, [facility] [place] [facility] [address] [id number] [place] [address]- 3622 Nov, [facility] [place] [facility] [address] [id number] [place] [address]- 6912 Nov, [facility] [place] [facility] [address] [id number] [place] 0923 Oct, [facility] [place] [facility] [address] [id number] [place] [address]- 6506 Oct, [facility] [place] [facility] [address] [id number] [place] [address]- 9867 Oct, [facility] [place] [facility] [address] [id number] [place] [address]- 4605 Oct, [facility] [place] [facility] [address] [id number] [place] [address]- 8066 Sep, [facility] [place] [facility] [address] [id number] [place] [address]- 8758 Sep, [facility] [place] [facility] [address] [id number] [place] [address]- 9915 Sep, [facility] [place] [facility] [address] [id number] [place] [address]- 2277 Sep, [facility] [place] [facility] [address] [id number] [place] [address]- 3837 Sep, [facility] [place] [facility] [address] [id number] [place] [address]- 5753 Sep, [facility] [place] [facility] [address] [id number] [place] [address]- 0509 Sep, [facility] [place] [facility] [address] [id number] [place] [address]- 5087 Sep, [facility] [place] [facility] [address] [id number] [place] [address]- 1580 August, [facility] [place] [facility] [address] [id number] [place] [address]- 7441 August, [facility] [place] [facility] [address] [id number] [place] [address]- 8126 August, [facility] [address] [id number] [place] [address]- 4105 August, [facility] [place] [facility] [address] [id number] [place] [address]- 1545 August, [facility] [address] [id number] [place] [address]- 0696 August, [facility] [address] [id number] [place] [address]- 2330 August, [facility] [address] [id number] [place] [address]- 7835 Jul, [facility] [address] [id number] [place] [address]- 3473 Jul, [facility] [address] [id number] [place] [address]- 3203 Jul, [facility] [address] [id number] [place] [address]- 8353 Jul, [facility] [place] [facility] [address] [id number] [place] [address]- 4953 Jul, [facility] [address] [id number] [place] [address]- 1110 Jul, [facility] [place] [facility] [address] [id number] [place] [address]- 5096 Jul, [facility] [place] [facility] [address] [id number] [place] [address]- 9132 Jul, [facility] [place] [facility] [address] [id number] [place] [address]- 0748 Jul, [facility] [place] [facility] [address] [id number] [place] [address]- 3075 Jul, [facility] [place] [facility] [address] [id number] [place] [address]- 7467 Jul, [facility] [place] [facility] [address] [id number] [place] [address]- 9568 Jul, [facility] [place] [facility] [address] [id number] [place] [address]- 9721 Jun, [facility] [place] [facility] [address] [id number] [place] [address]- 2447 Jun, [facility] [place] [facility] [address] [id number] [place] [address]- 5012 Jun, [facility] [place] [facility] [address] [id number] [place] [address]- 8224 Jun, [facility] [place] [facility] [address] [id number] [place] [address]- 1309 Jun, [facility] [place] [facility] [address] [id number] [place] [address]- 2192 May, [facility] [place] [facility] [address] [id number] [place] [address]- 8723 May, [facility] [place] [facility] [address] [id number] [place] [address]- 6541 May, [facility] [place] [facility] [address] [facility] [id number] [place] [address]- 7221 May, [facility] [place] [facility] [address] [id number] [place] [address]- 7105 May, [facility] [place] [facility] [address] [id number] [place] [address]- 0746 May, [facility] [place] [facility] [address] [id number] [place] [address]- 7558 May, [facility] [place] [facility] [address] [id number] [place] [address]- 1973 May, [facility] [place] [facility] [address] [facility] [id number] [place] 2313 Mar, [facility] [place] [facility] [address] [id number] [place] [address]- 1040 Mar, [facility] [address] [id number] [place] [address]- 9109 Mar, [facility] [place] [facility] [address] [id number] [place] [address]- 7258 Mar, [facility] [address] [id number] [place] [address]- 4775 Mar, [facility] [place] [facility] [address] [id number] [place] [address]- 5222 Mar, [facility] [address] [id number] [place] [address]- 3460 Feb, [facility] [place] [facility] [address] [id number] [place] [address]- 2232 Feb, [facility] [place] [facility] [address] [id number] [place] [address]- 8250 Jan, [facility] [address] [id number] [place] [address]- 1357 Jan, [facility] [place] [facility] [address] [id number] [place] [address]- 1124 Jan, [facility] [address] [id number] [place] [address]- 2031 Jan, [facility] [place] [facility] [address] [id number] [place] [address]- 6897 Jan, [facility] [place] [facility] [address] [id number], [place] [address]- 5179 Jan, [facility] [place] [facility] [address] [id number] [place] [address]- 6900 Jan, [facility] [place] [facility] [address] [id number] [place] [address]- 1276 Jan, [facility] [place] [facility] [address] [id number] [place] [address]- 9491 Jan, [facility] [place] [facility] [address] [id number] [place] [address]- 0338 Jan, [facility] [place] [facility] [address] [id number] [place] [address]- 1926 Dec, [facility] [place] [facility] [address] [id number] [place] [address]- 7537 Nov, [facility] [place] [facility] [address] [id number] [place] [address]- 1841 Nov, [facility] [place] [facility] [address] [id number] [place] [address]- 4043 Nov, [facility] [place] [facility] [address] [id number] [place] [address]- 4551 Oct, [facility] [place] [facility] [address] [id number] [place] [address]- 3569 Oct, [facility] [place] [facility] [address] [id number] [place] [address]- 8337 August, [facility] [place] [facility] [address] [id number] [place] [address]- 8676 Apr, [facility] [place] [facility] [address] [id number] [place] [address]- 7209 Apr, [facility] [place] [facility] [address] [id number] [place] [address]- 5520 Feb, [facility] [place] [facility] [address] [id number] [place] [address]- 4296 Feb, [facility] [place] [facility] [address] [id number] [place] [address]- 6953 Dec, [facility] [place] [facility] [address] [id number] [place] [address]- 3596 Dec, [facility] [place] [facility] [address] [id number] [place] [address]- 8672 Oct, [facility] [place] [facility] [address] [id number] [place] [address]- 9845 Oct, [facility] [address] [facility] [id number] [place] [address]- 0556 Oct, [facility] [address] [facility] [id number] [place] [address]- 2699 Jul, IMMUNIZATIONS No Known Immunizations SOCIAL HISTORY Never Assessed REASON FOR VISIT Medication question PLAN OF CARE VITAL SIGNS MEDICATIONS Medication Instructions Dosage Frequency Start Date End Date Duration Status Protonix 40 mg Orally Once a day 1 tablet 24h Nov, 30 day(s) Active RESULTS No Results PROCEDURES No Known [...] for psychosis/mental illness , last one in [facility] 4 years ago
--- OUTSIDE RECORDS SUMMARY | 2018-09-02 13:27 | XMS REPORT ---
Author Author SOTO STRICKLAND Organization [facility] Address [address] [place] [address] Care Team Providers Care Shorthand Reporter Name Role Phone SOTO STRICKLAND Unavailable PROBLEMS Type Condition ICD9-CM Code GCI24-UA Code Onset Dates Condition Status SNOMED Code Problem OAB (overactive bladder) N32.81 Active 657948624 Problem Depression with anxiety F41.8 Active 019478888 Problem Other seasonal allergic rhinitis J30.2 Active 568645235 Problem Chronic obstructive pulmonary disease, unspecified COPD type J44.9 Active 86139374 Problem Tobacco abuse Z72.0 Active 412969762 Problem Morbid obesity due to excess calories E66.01 Active 910957296 Problem Dyslipidemia E78.5 Active 527306524 Problem Hypothyroidism (acquired) E03.9 Active 371061536 Problem Essential hypertension I10 Active 70594353 Problem Diabetic polyneuropathy associated with type 2 diabetes mellitus E11.42 Active 928369514 Problem Type 2 diabetes mellitus with diabetic neuropathic arthropathy, 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 Active 871460506 Problem Type 2 diabetes mellitus without complication, without long-term current use of insulin E11.9 Active 345068726 Problem Paranoid schizophrenia F20.0 Active 87675193 Problem Chronic pain syndrome G89.4 Active 273385318 Problem Migraine without aura and without status migrainosus, not intractable G43.009 Active 238965323 Problem Gastroesophageal reflux disease, esophagitis presence not specified K21.9 Active 459365135 Problem Seasonal allergic rhinitis due to pollen J30.1 Active 01617699 Problem COPD exacerbation J44.1 Active 664516351 Problem Seasonal allergic rhinitis due to other allergic trigger J30.89 Active 124760594 Problem Schizoaffective disorder, depressive type F25.1 Active 32615050 Problem History of lupus Z87.39 Active 634514569 Problem Gastroesophageal reflux disease without esophagitis K21.9 Active 213426039 Problem Menopausal syndrome (hot flashes) N95.1 Active 369451605 Problem Other allergic rhinitis J30.89 Active 194659013 Problem Primary insomnia F51.01 Active 8460106 Problem DM neuro manif type II E11.49 Active 21101424 ALLERGIES No Information ENCOUNTERS Encounter Location Date Diagnosis [facility] [id number] [place] [address] 55550- 1721 Jan, [facility] [id number] [place] [address] 81212- 6219 Jan, [facility] [id number] [place] [address] 18344- 8703 Jan, [facility] [address] 55033- 5331 21 Dec, 2017 [facility] [id number] [place] [address] 12668- 2365 18 Dec, 2017 [facility] [address] 31491- 5472 18 Dec, 2017 Acute non-recurrent frontal sinusitis J01.10 [facility] [id number] [place] [address] 15047- 5989 18 Dec, 2017 Acute non-recurrent frontal sinusitis J01.10 ; At high risk for falls Z91.81 ; BMI 45.0-49.9, adult Z68.42 and Weakness of left leg R29.898 [facility] [id number] [place] [address] 10330- 9287 17 Dec, 2017 [facility] [id number] [place] [address] 57648- 7040 17 Dec, 2017 [facility] [id number] [place] [address] 19722- 4037 10 Dec, 2017 Schizoaffective disorder, depressive type F25.1 [facility] [id number] [place] [address] 62423 -2465 10 Dec, 2017 Acute nasopharyngitis J00 [facility] [address] [place] [address]- 2032 Dec, Schizoaffective disorder, depressive type F25.1 [place] [id number] [place] [address] 63635- 9018 Dec, [place] [id number] [place] [address] 18811- 4436 Nov, Schizoaffective disorder, depressive type F25.1 and BMI 45.0 -49.9, adult Z68.42 [place] [id number] [place] [address] 60637- 0191 Nov, [place] [id number] [place] [address] 78062- 7416 Nov, [place] [id number] [place] [address] 82132- 3139 Nov, Schizoaffective disorder, depressive type F25.1 [place] [id number] [place] [address] 13673- 2814 Nov, Well woman exam Z01.419 ; BMI 45.0-49.9, adult Z68.42 ; Screening breast examination Z12.31 and Dietary counseling and surveillance Z71.3 [place] [address] [place] [address] 70646- 6518 Nov, Paranoid schizophrenia F20.0 [place] [id number] [place] [address] 18404- 4722 Nov, Gastroesophageal reflux disease, esophagitis presence not specified K21.9 [place] [address] [address] 1809 Oct, Paranoid schizophrenia F20.0 [facility] [id number] [place] [address] Oct Chronic pain syndrome G89.4 and Schizoaffective disorder, depressive type F25.1 [place] [address] [address] 4238 Oct, Chronic pain syndrome G89.4 and Schizoaffective disorder, depressive type F25.1 [place] [id number] [place] [address] 63940- 0927 16 Oct, 2017 Type 2 diabetes mellitus without complication, without long- term current use of insulin E11.9 [place] [id number] [place] [address] 33473- 1352 12 Oct, 2017 Essential hypertension I10 and DM neuro manif type II E11.49 [place] [address] 83751- 9253 Oct, [place] [address] 62400- 8253 Oct, Schizoaffective disorder, depressive type F25.1 and BMI 45.0 -49.9, adult Z68.42 [place] [address] 60790- 2339 Oct, [place] [id number] [place] [address] 15965- 8946 Oct, Paranoid schizophrenia F20.0 [place] [address] 13975- 7743 Oct, Type 2 diabetes mellitus with diabetic neuropathic arthropathy, 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 ; Essential hypertension I10 ; Hypothyroidism (acquired) E03.9 ; Chronic obstructive pulmonary disease, unspecified COPD type J44.9 and Diabetic polyneuropathy associated with type 2 diabetes mellitus E11.42 [place] [id number] [place] [address] 35969- 7120 Sep, Paranoid schizophrenia F20.0 [place] [address] 57536- 5974 Sep, Paranoid schizophrenia F20.0 and BMI 45.0-49.9, adult Z68.42 [place] [address] 21129- 4750 Sep, Schizoaffective disorder, depressive type F25.1 [facility] [id number] [place] [address] 23434- 4886 Sep, [facility] [id number] [place] [address] 95301- 3311 Sep, Paranoid schizophrenia F20.0 [facility] [id number] [place] [address] 35665- 5577 Sep, [facility] [id number] [place] [address] 94511- 6734 Sep, Hypothyroidism (acquired) E03.9 [facility] [id number] [place] [address] 64692- 7826 Sep, [facility] [id number] [place] [address] 98483- 5997 August, Schizoaffective disorder, depressive type F25.1 [facility] [id number] [place] [address] 93481- 8328 August, [facility] [id number] [place] [address] 06484- 3910 August, [facility] [id number] [place] [address] 68779- 9074 August, [facility] [id number] [place] [address] 04208- 5673 August, Paranoid schizophrenia F20.0 [facility] [id number] [place] [address] 88490- 7244 August, History of lupus Z87.39 and Chronic pain syndrome G89.4 [facility] [id number] [place] [address] 23069- 2369 August, [facility] [address] [place] [address] 22632 -7495 August, Seasonal allergic rhinitis, unspecified trigger J30.2 and BMI 45.0-49.9, adult Z68.42 [facility] [id number] [place] [address] 33895- 4984 Jul, Schizoaffective disorder, depressive type F25.1 [facility] [id number] [place] [address] 70161- 6277 19 Jul, 2017 [facility] [id number] [place] [address] 37303- 3035 13 Jul, 2017 Hypothyroidism (acquired) E03.9 [facility] [address] 43185- 7097 11 Jul, 2017 Chronic obstructive pulmonary disease, unspecified COPD type J44.9 and Type 2 diabetes mellitus without complication, without long-term current use of insulin E11.9 [place] [id number] [place] [address] 32314- 9536 10 Jul, 2017 Paranoid schizophrenia F20.0 [place] [address] 75637- 1721 Jun, Hypothyroidism (acquired) E03.9 and Seasonal allergic rhinitis due to pollen J30.1 [facility] [address] 03733 -8171 Jun, Shortness of breath at rest R06.02 ; COPD exacerbation J44.1 and BMI 45.0-49.9, adult Z68.42 [facility] [id number] [place] [address] 84396- 0161 Jun, [facility] [address] 85154- 7676 Jun, Paranoid schizophrenia F20.0 ; Depression with anxiety F41.8 and BMI 45.0-49.9, adult Z68.42 [facility] [id number] [place] [address] 50320- 9436 20 Jun, 2017 Schizoaffective disorder, depressive type F25.1 [facility] [address] [id number] Jun, Dental caries K02.9 [facility] [id number] [place] [address] 84500- 4256 Jun, Paranoid schizophrenia F20.0 [facility] [id number] [place] [address] 5924 May, Migraine without aura and without status migrainosus, not intractable G43.009 ; DM neuro manif type II E11.49 and Type 2 diabetes mellitus without complication, without long-term current use of insulin E11.9 [facility] [id number] [place] [address] 73404- 4719 May, Migraine without aura and without status migrainosus, not intractable G43.009 [facility] [id number] [place] [address] 71704- 6275 May, Depression with anxiety F41.8 [facility] [id number] [place] [address] [id number] May, [facility] [id number] [place] [address] 19238- 0258 May, [facility] [id number] [place] [address] 74456- 8149 May, [facility] [id number] [place] [address] 81334- 8144 May, Hypothyroidism (acquired) E03.9 [facility] [id number] [place] [address] 35670- 7463 May, Paranoid schizophrenia F20.0 [facility] [id number] [place] [address] 55206- 3953 May, Type 2 diabetes mellitus without complication, [...] N32.81 and Controlled substance agreement signed Z79.899 [facility] [address] 38247- 6821 May, Controlled substance agreement signed Z79.899 [facility] [address] 23891- 9966 Apr, [facility] [address] [id number] Apr, Dental examination Z01.20 [facility] [address] 71960- 4726 Apr, Paranoid schizophrenia F20.0 [facility] [address] 05732- 9339 Apr, Hypertension, unspecified type I10 [facility] [address] 45537- 1884 Apr, Paranoid schizophrenia F20.0 [facility] [address] 52556- 0209 Apr, [facility] [address] 29267- 9740 Apr, Tobacco abuse Z72.0 [facility] [address] 79100- 2215 Apr, [facility] [address] 44309- 0360 Mar, [facility] [address] 49009- 5013 Mar, Paranoid schizophrenia F20.0 and BMI 45.0-49.9, adult Z68.42 [facility] [id number] [place] [address] 02235- 0294 15 Mar, 2017 Schizoaffective disorder, depressive type F25.1 [facility] [facility] [id number] [place] [address] 11393- 8003 14 Mar, 2017 [facility] [id number] [place] [address] 34976- 9331 Mar, Schizoaffective disorder, depressive type F25.1 [facility] [id number] [place] [address] 78477- 4317 12 Mar, 2017 Hypothyroidism, unspecified type E03.9 [facility] [id number] [place] [address] 94438 -3162 25 Feb, 2017 Gastroenteritis K52.9 and BMI 45.0-49.9, adult Z68.42 [place] [id number] [place] [address] 40556- 5573 22 Feb, 2017 [place] [id number] [place] [address] 82074- 2156 Feb, [place] [address] 14323- 3871 Feb, [place] [id number] [place] [address] 12796- 7663 16 Feb, 2017 [place] [id number] [place] [address] 30272- 9493 Feb, Paranoid schizophrenia F20.0 [place] [id number] [place] [address] 61171- 5232 06 Feb, 2017 Gastroesophageal reflux disease without esophagitis K21.9 ; Other seasonal allergic rhinitis J30.2 ; Other allergic rhinitis J30.89 ; Tobacco abuse Z72.0 and BMI 40.0-44.9, adult Z68.41 [place] [id number] [place] [address] 93859- 3868 03 Feb, 2017 Onychomycosis B35.1 ; Callus of foot L84 and DM neuro manif type II E11.49 [facility] [address] 99802- 8545 31 Jan, 2017 Chronic allergic rhinitis J30.9 [facility] [id number] [place] [address] 92100- 2385 16 Jan, 2017 [place] [address] 72747- 3277 Jan, Schizoaffective disorder, depressive type F25.1 [place] [address] 81905- 1959 10 Jan, 2017 [facility] [address] 19781 -7654 07 Jan, 2017 Sore throat J02.9 and Seasonal allergic rhinitis due to other allergic trigger J30.89 [place] [address] 91733- 0985 Jan, [place] [address] 09488- 7471 Jan, [facility] [address] 89549 -0389 Jan, Chronic allergic rhinitis J30.9 [place] [address] 64295- 8090 27 Dec, 2016 Paranoid schizophrenia F20.0 ; Primary insomnia F51.01 and Schizoaffective disorder, depressive type F25.1 [place] [address] 24088- 6784 21 Dec, 2016 Chronic pain syndrome G89.4 ; Cervicalgia of occipito- atlanto-axial region M54.2 ; Menopausal syndrome (hot flashes) N95.1 and Encounter for immunization Z23 [place] [address] 04532- 3124 14 Dec, 2016 [place] [address] [place] [address]- 1026 13 Dec, 2016 [facility] [id number] [place] [address] 61128- 1019 Dec, Paranoid schizophrenia F20.0 [facility] [id number] [place] [address] 90281- 7848 Dec, Schizoaffective disorder, depressive type F25.1 [facility] [address] 81622- 7046 Nov, Hypothyroidism, unspecified type E03.9 [facility] [id number] [place] [address] 55704 -8993 Nov, Acute seasonal allergic rhinitis due to other allergen J30.89 [place] [id number] [place] [address] 52950- 6890 Nov, [place] [address] 57685- 0889 Nov, Hypothyroidism, unspecified type E03.9 and Other elevated white blood cell (WBC) count D72.828 [place] [id number] [place] [address] 10504- 5893 Nov, Schizoaffective disorder, depressive type F25.1 [place] [id number] [place] [address] 70962- 0065 Nov, Paranoid schizophrenia F20.0 [place] [id number] [place] [address] 10026- 8003 Nov, Type 2 diabetes mellitus without complication, without long- term current use of insulin E11.9 ; Morbid obesity due to excess calories E66.01 and Chronic pain syndrome G89.4 [place] [id number] [place] [address] 53440- 3941 Oct, Paranoid schizophrenia F20.0 [place] [id number] [place] [address] 93956- 0221 Oct, [place] [address] [address]- 3792 Oct, Schizoaffective disorder, depressive type F25.1 [place] [id number] [place] [address] 09352- 8593 Oct, Hypothyroidism, unspecified type E03.9 and Other elevated white blood cell (WBC) count D72.828 [place] [id number] [place] [address] 16306- 4330 Oct, Morbid obesity due to excess calories E66.01 ; Chronic obstructive pulmonary disease, unspecified COPD type J44.9 ; History of lupus Z87.39 ; Hypothyroidism, unspecified type E03.9 ; Gastroesophageal reflux disease without esophagitis K21.9 ; Primary insomnia F51.01 and Chronic pain syndrome G89.4 [place] [id number] [place] [address] 80407- 9386 Sep, [place] [id number] [place] [address] 37852- 4681 Sep, [place] [id number] [place] [address] 30000- 6284 Sep, [place] [id number] [place] [address] 97620- 7407 Sep, Paranoid schizophrenia F20.0 [place] [address] [address]- 8214 Sep, [place] [id number] [place] [address] 62955- 9117 Sep, Paranoid schizophrenia F20.0 [place] [id number] [place] [address] 05560- 3869 Sep, [facility] [id number] [place] [address] 38329- 5832 August, Paranoid schizophrenia F20.0 [facility] [id number] [place] [address] 94044- 5345 Jul, [place] [id number] [place] [address] 18724- 7144 18 Jul, 2017 Type 2 diabetes mellitus without complication, without long- term current use of insulin E11.9 ; Morbid obesity due to excess calories E66.01 ; Depression with anxiety F41.8 ; Hypothyroidism, unspecified type E03.9 ; Seasonal allergic rhinitis due to other allergic trigger J30.89 ; Pain, dental K08.89 and Gastroesophageal reflux disease without esophagitis K21.9 [facility] [id number] [place] [address] [id number] 12 Jul, 2016 Dental examination Z01.20 [place] [address] 89453- 7975 07 Jul, 2016 Paranoid schizophrenia F20.0 [place] [id number] [place] [address] 17451- 7497 13 Jun, 2016 Paranoid schizophrenia F20.0 and Depression with anxiety F41.8 [place] [id number] [place] [address] 36885- 7077 10 Jun, 2016 Paranoid schizophrenia F20.0 and Depression with anxiety F41.8 [place] [address] 82221- 6102 09 Jun, 2016 [place] [id number] [place] [address] 89680- 4147 Jun, [facility] [address] [place] [id number] [place] [address] 32706 -1874 Jun, Seasonal allergic rhinitis due to other allergic trigger J30.89 [facility] [place] [id number] [place] [address] 98642 -7646 May, Sore throat J02.9 ; Other viral agents as the cause of diseases classified elsewhere B97.89 and Acute upper respiratory infection, unspecified J06.9 [place] [id number] [place] [address] 51185- 5817 May, Paranoid schizophrenia F20.0 and Depression with anxiety F41.8 [place] [id number] [place] [address] 69890- 7523 Apr, Other seasonal allergic rhinitis J30.2 [place] [id number] [place] [address] 40607- 4169 Apr, Paranoid schizophrenia F20.0 and Depression with anxiety F41.8 [facility] [address] 07324 -1875 Apr, Bronchitis J40 and Sore throat J02.9 [place] [address] 82424- 3697 Apr, Type 2 diabetes mellitus without complication, without long- term current use of insulin E11.9 [facility] [place] [address] 34582 -4073 Apr, Bronchitis J40 [place] [address] 71945- 0431 Apr, [place] [address] 29052- 6232 Apr, [place] [address] 84586- 7653 Mar, Type 2 diabetes mellitus without complication, [...] R60.9 and Other seasonal allergic rhinitis J30.2 [place] [id number] [place] [address] 22758- 7935 Mar, Paranoid schizophrenia F20.0 and Depression with anxiety F41.8 [place] [address] 62870- [address] 30 Feb, 2016 [facility] [id number] [address] Feb, [facility] [id number] [place] [address] Feb, [facility] [id number] [place] [address]- [address] Feb, [facility] [address] [place] [id number] [place] [address] 14 Feb, 2016 Type 2 diabetes mellitus without complication, without long- term current use of insulin E11.9 ; ARIAS on CPAP G47.33 and Preoperative evaluation to rule out surgical contraindication Z01.818 [facility] [id number] [address] 09 Feb, 2016 Paranoid schizophrenia F20.0 and Depression with anxiety F41.8 [facility] [address] [place] [id number] [place] [address]- [address]263 18 Jan, 2016 [facility] [id number] [place] [address] 18 Jan, 2016 Paranoid schizophrenia F20.0 and Depression with anxiety F41.8 [facility] [id number] [address] 17 Jan, 2016 [facility] [id number] [address] 14 Jan, 2016 Muscle strain T14.8 [facility] [id number] [place] [address] 10 Jan, 2016 Paranoid schizophrenia F20.0 [facility] [id number] [address] 07 Jan, 2016 [facility] [id number] [address] 05 Jan, 2016 Paranoid schizophrenia F20.0 and Depression with anxiety F41.8 [facility] [id number] [address] 05 Jan, 2016 [facility] [facility] [id number] [address] Jan, [facility] [id number] [address] Dec, [facility] [id number] [place] [address]- 6970 Dec, Paranoid schizophrenia F20.0 [facility] [id number] [place] [address]- 5934 16 Dec, 2015 Paranoid schizophrenia F20.0 and Depression with anxiety F41.8 [facility] [address] [address] Nov, [facility] [id number] [place] [address]- 1653 Nov, Paranoid schizophrenia F20.0 [facility] [address] [address] Nov, Paranoid schizophrenia F20.0 and Depression with anxiety F41.8 [facility] [address] [address] Nov, Type 2 diabetes mellitus without complication, without long- term current use of insulin E11.9 ; Paranoid schizophrenia F20.0 ; Chronic obstructive pulmonary disease, unspecified COPD type J44.9 ; Morbid obesity due to excess calories E66.01 and Parkinsonian tremor G20 [facility] [address] [address] Nov, [facility] [id number] [address] 96[address] Oct, Paranoid schizophrenia F20.0 [facility] [address] [address]- 9310 Oct, Paranoid schizophrenia F20.0 [place] [id number] [address] 3971 Oct, Paranoid schizophrenia F20.0 and Depression with anxiety F41.8 [place] [id number] [place] [address]- 2662 Oct, [place] [id number] [place] [address] 19041- 6374 Oct, Paranoid schizophrenia F20.0 and Depression with anxiety F41.8 [place] [id number] [place] [address] 56[address]- 9249 Oct, Nasal sore J34.89 [place] [id number] [place] [address] 13069- 1082 Oct, Type 2 diabetes mellitus without complication, without long- term current use of insulin E11.9 ; Depression with anxiety F41.8 ; Hypothyroidism, unspecified type E03.9 and History of lupus Z87.39 [place] [id number] [place] [address] 776[address]- 7331 Oct, [place] [id number] [place] [address]- 8922 Oct, Type 2 diabetes mellitus without complication, [...] edema R60.9 and History of lupus Z87.39 [place] [id number] [address]- 7696 Feb, [place] [id number] [place] [address] 12490- 1918 14 Jan, 2015 [place] [address] [facility] [id number] [place] [address]- [address] Jan, [facility] [address] [facility] [id number] [place] [address] Jan, [facility] [address] [facility] [id number] [place] [address]- 7009 Dec, [facility] [address] [facility] [id number] [place] [address]- 7847 Nov, [facility] [address] [facility] [id number] [place] [address]- 9282 Nov, [facility] [address] [facility] [id number] [place] [address]- 0770 Oct, [facility] [id number] [place] [address]- 8586 Oct, [facility] [id number] [place] [address]- 4560 Oct, [facility] [id number] [place] [address]- 2934 Sep, Allergic rhinitis 477.9 [facility] [address] [address]- 9282 Sep, Rhinitis, allergic 477.9 [facility] [id number] [address]- 4018 Sep, Rhinitis, allergic 477.9 [facility] [address] [facility] [id number] [address]- 0[address] Sep, [facility] [id number] [address]221 August, [facility], [facility] [address] [facility] [id number] [place] [address] August, [facility] [id number] [address] August, [facility] [place] [facility] [address] [id number] [place] [address]- 5625 28 Jul, 2014 [facility] [place] [facility] [address] [id number] [place] [address]- 7118 14 Jul, 2014 [facility] [place] [facility] [address] [id number] [place] [address]- 5364 13 Jul, 2014 [facility] [place] [facility] [address] [id number] [place] [address]- 9621 16 Jun, 2014 [facility] [place] [facility] [address] [id number] [place] [address]- 5764 16 Jun, 2014 [facility] [place] [facility] [address] [id number] [place] [address]- 0542 12 Jun, 2014 [facility] [place] [facility] [address] [facility] [id number] [place] [address]- 9385 Jun, [facility] [place] [facility] [address] [id number] [place] [address]- 4613 11 Jun, 2014 [facility] [place] [facility] [address] [id number] [place] [address]- 9897 Jun, [facility] [place] [facility] [address] [id number] [place] [address]- 1984 Jun, [facility] [place] [facility] [address] [facility] [id number] [place] [address]- 0808 Jun, [facility] [place] [facility] [address] [id number] [place] [address]- 7210 May, 2014 [facility] [place] [facility] [address] [id number] [place] 1723 May, [facility] [place] [facility] [address] [id number] [place] [address]- 6791 May, [facility] [place] [facility] [address] [id number] [place] [address]203 May, [facility] [place] [facility] [address] [facility] [id number] [place] [address]- 4041 Apr, [facility] [place] [facility] [address] [id number] [place] [address]- 4872 Mar, [facility] [place] [facility] [address] [id number] [place] 8[address] Mar, [facility] [place] [facility] [address] [id number] [place] [address]- 4985 Mar, [facility] [place] [facility] [address] [id number] [place] [address]- 7609 Mar, [facility] [place] [facility] [address] [id number] [place] [address]- 2609 Mar, [facility] [place] [facility] [address] [id number] [place] [address]- 1547 Mar, [facility] [place] [facility] [address] [id number] [place] [address]- 7667 Mar, [facility] [place] [facility] [address] [id number] [place] [address]- 4731 Mar, [facility] [place] [facility] [address] [id number] [place] [address]- 7844 Mar, [facility] [place] [facility] [address] [id number] [place] [address]- 0615 Feb, [facility] [place] [facility] [address] [id number] [place] [address]- 0629 Feb, [facility] [place] [facility] [address] [id number] [place] [address]- 0652 Feb, [facility] [place] [facility] [address] [id number] [place] [address]- 4002 Feb, [facility] [place] [facility] [address] [id number] [place] [address]- 4661 Feb, [facility] [place] [facility] [address] [id number] [place] [address]- 4303 Feb, [facility] [place] [facility] [address] [id number] [place] [address]- 1851 12 Feb, 2014 [facility] [place] [facility] [address] [id number] [place] [address]- 2648 Feb, [facility] [place] [facility] [address] [id number] [place] [address]- 1006 23 Jan, 2014 [facility] [place] [facility] [address] [id number] [place] [address]- 7369 23 Jan, 2014 [facility] [place] [facility] [address] [id number] [place] [address]- 4660 16 Jan, 2014 [facility] [place] [facility] [address] [id number] [place] [address]- 1026 16 Jan, 2014 [facility] [place] [facility] [address] [id number] [place] [address]- 3132 15 Jan, 2014 [facility] [place] [facility] [address] [id number] [place] [address]- 6930 15 Jan, 2014 [facility] [place] [facility] [address] [id number] [place] [address]- 3484 14 Jan, 2014 [facility] [place] [facility] [address] [id number] [place] [address]- 2864 14 Jan, 2014 [facility] [place] [facility] [address] [id number] [place] [address]- 5339 14 Jan, 2014 [facility] [place] [facility] [address] [id number] [place] [address]- 7915 14 Jan, 2014 [facility] [place] [facility] [address] [id number] [place] [address]- 1563 18 Dec, 2013 [facility] [place] [facility] [address] [id number] [place] [address]- 1711 18 Dec, 2013 [facility] [place] [facility] [address] [id number] [place] [address]- 8052 10 Dec, 2013 [facility] [place] [facility] [address] [id number] [place] [address]- 0267 Dec, [facility] [place] [facility] [address] [id number] [place] [address]- 9550 Nov, [facility] [place] [facility] [address] [id number] [place] [address]- 5160 Nov, [facility] [place] [facility] [address] [id number] [place] [address]- 2706 Nov, [facility] [place] [facility] [address] [id number] [place] [address]- 5036 Nov, [facility] [place] [facility] [address] [id number] [place] [address]- 0737 Nov, [facility] [place] [facility] [address] [id number] [place] [address]- 1488 Oct, [facility] [place] [facility] [address] [id number] [place] [address]- 3172 Oct, [facility] [place] [facility] [address] [id number] [place] [address]- 8526 Oct, [facility] [place] [facility] [address] [id number] [place] [address]- 1394 Oct, [facility] [place] [facility] [address] [id number] [place] [address]- 8607 Sep, [facility] [place] [facility] [address] [id number] [place] [address]- 6705 Sep, [facility] [place] [facility] [address] [id number] [place] [address]- 9680 Sep, [facility] [place] [facility] [address] [id number] [place] [address]- 6851 Sep, [facility] [place] [facility] [address] [id number] [place] [address]- 6759 Sep, [facility] [place] [facility] [address] [id number] [place] [address]- 6533 Sep, [facility] [place] [facility] [address] [id number] [place] [address]- 3492 Sep, [facility] [place] [facility] [address] [id number] [place] [address]- 3642 Sep, [facility] [place] [facility] [address] [id number] [place] [address]- 8133 August, [facility] [place] [facility] [address] [id number] [place] [address]- 0094 August, [facility] [place] [facility] [address] [id number] [place] [address]- 3843 August, [facility] [place] [facility] [address] [id number] [place] [address]- 3481 August, [facility] [place] [facility] [address] [id number] [place] [address]- 5406 August, [facility] [place] [facility] [address] [id number] [place] [address]- 5981 August, [facility] [place] [facility] [address] [id number] [place] [address]- 8002 August, [facility] [place] [facility] [address] [id number] [place] [address]- 2851 Jul, [facility] [place] [facility] [address] [id number] [place] [address]- 6696 Jul, [facility] [place] [facility] [address] [id number] [place] [address]- 7913 Jul, [facility] [place] [facility] [address] [id number] [place] [address]- 8168 Jul, [facility] [place] [facility] [address] [id number] [place] [address]- 3829 Jul, [facility] [place] [facility] [address] [id number] [place] [address]- 0783 Jul, [facility] [place] [facility] [address] [id number] [place] [address]- 3626 Jul, [facility] [place] [facility] [address] [id number] [place] [address]- 6290 Jul, [facility] [place] [facility] [address] [id number] [place] [address]- 1979 Jul, [facility] [place] [facility] [address] [id number] [place] [address]- 3984 Jul, [facility] [place] [facility] [address] [id number] [place] [address]- 4382 Jul, [facility] [place] [facility] [address] [id number] [place] [address]- 5845 Jul, [facility] [place] [facility] [address] [id number] [place] [address]- 2269 Jun, [facility] [place] [facility] [address] [id number] [place] [address]- 1636 Jun, [facility] [place] [facility] [address] [id number] [place] [address]- 7497 Jun, [facility] [place] [facility] [address] [id number] [place] [address]- 5887 Jun, [facility] [place] [facility] [address] [id number] [place] [address]- 6683 Jun, [facility] [place] [facility] [address] [id number] [place] [address]- 0544 May, [facility] [place] [facility] [address] [id number] [place] [address]- 6577 May, [facility] [place] [facility] [address] [id number] [place] [address]- 1933 May, [facility] [place] [facility] [address] [id number] [place] [address]- 2518 May, [facility] [place] [facility] [address] [id number] [place] [address]- 8019 May, [facility] [place] [facility] [address] [id number] [address]- 3146 May, 2013 [facility] [address] [id number] [place] [address]- 2416 May, 2013 [facility] [place] [facility] [address] [id number] [place] [address]- 8050 May, [facility] [address] [facility] [id number] [place] [address]- 9613 Mar, [facility] [place] [facility] [address] [id number] [place] [address]- 8962 Mar, [facility] [address] [id number] [place] [address]- 6393 Mar, [facility] [place] [facility] [address] [id number] [place] [address]- 9783 Mar, [facility] [address] [facility] [id number] [place] [address]- 6716 Mar, [facility] [place] [facility] [address] [id number] [place] [address]- 0357 Mar, [facility] [place] [facility] [address] [facility] [id number] [place] [address]- 9577 Feb, [facility] [place] [facility] [address] [facility] [id number] [place] [address]- 7315 Feb, [facility] [place] [facility] [address] [id number] [place] [address]- 0068 Jan, [facility] [place] [facility] [address] [id number] [address]- 8072 Jan, [facility] [place] [facility] [address] [id number] [address]- 3999 Jan, [facility] [place] [facility] [address] [facility] [id number] [place] [address]- 6138 Jan, [facility] [place] [facility] [address] [facility] [id number] [address]- 2030 Jan, [facility] [place] [facility] [address] [id number] [place] [address]- 7406 Jan, [facility] [place] [facility] [address] [id number] [place] [address]- 3477 Jan, [facility] [place] [facility] [address] [id number] [place] [address]- 2546 Jan, [facility] [place] [facility] [address] [id number] [place] [address]- 8637 Jan, [facility] [place] [facility] [address] [id number] [place] [address]- 7445 Jan, [facility] [place] [facility] [address] [id number] [place] [address]- 9946 Dec, [facility] [place] [facility] [address] [id number] [place] [address]- 6788 Nov, [facility] [place] [facility] [address] [id number] [place] [address]- 9184 Nov, [facility] [place] [facility] [address] [id number] [place] [address]- 5850 Nov, [facility] [place] [facility] [address] [id number] [place] [address]- 3114 Oct, [facility] [place] [facility] [address] [id number] [place] [address]- 7705 Oct, [facility] [place] [facility] [address] [id number] [place] [address]- 0175 August, [facility] [place] [facility] [address] [id number] [place] [address]- 4015 Apr, [facility] [place] [facility] [address] [id number] [place] [address]- 7104 Apr, [facility] [place] [facility] [address] [id number] [place] [address]- 0818 Feb, [facility] [place] [facility] [address] [id number] [place] [address]- 2411 Feb, [facility] [address] [facility] [id number] [place] [address]- 5737 Dec, [facility] [address] [facility] [id number] [address]- 1906 Dec, [facility] [address] [facility] [id number] [address]- 6016 Oct, [facility] [address] [facility] [id number], [place] [address]- 3020 Oct, [facility] [address] [facility] [id number] [address]- 0570 Oct, [facility] [address] [facility] [id number][place] [address]- 7048 Jul, IMMUNIZATIONS No Known Immunizations SOCIAL HISTORY Never Assessed REASON FOR VISIT Refill request PLAN OF CARE VITAL SIGNS MEDICATIONS Medication Instructions Dosage Frequency Start Date End Date Duration Status Ambien 5 mg Orally Once a day 1 tablet at bedtime 24h Oct, 28 days Active Estradiol 2 MG TAKE 1 TABLET BY MOUTH ONCE DAILY 90 days Active RESULTS No Results PROCEDURES [...] for psychosis/mental illness , last one in [place] at [facility] 4 years ago
--- OUTSIDE RECORDS SUMMARY | 2018-09-02 13:28 | XMS REPORT ---
Author Author EDWINUMESH CASIANO Organization [facility] [address] Address [address] [place] [address] Care Team Providers Care Quiller Runner Name Role Phone UMESH PINEDA Unavailable PROBLEMS Type Condition ICD9-CM Code [id number] Code Onset Dates Condition Status SNOMED Code Problem OAB (overactive bladder) N32.81 Active 323097863 Problem Depression with anxiety F41.8 Active 096017276 Problem Other seasonal allergic rhinitis J30.2 Active 660798931 Problem Chronic obstructive pulmonary disease, unspecified COPD type J44.9 Active 86701202 Problem Tobacco abuse Z72.0 Active 042102566 Problem Morbid obesity due to excess calories E66.01 Active 332456410 Problem Dyslipidemia E78.5 Active 344146171 Problem Hypothyroidism (acquired) E03.9 Active 178716225 Problem Essential hypertension I10 Active 10121034 Problem Diabetic polyneuropathy associated with type 2 diabetes mellitus E11.42 Active 347101467 Problem Type 2 diabetes mellitus with diabetic neuropathic arthropathy, 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 Active 730680482 Problem Type 2 diabetes mellitus without complication, without long-term current use of insulin E11.9 Active 975903502 Problem Paranoid schizophrenia F20.0 Active 56564544 Problem Chronic pain syndrome G89.4 Active 613237169 Problem Migraine without aura and without status migrainosus, not intractable G43.009 Active 830287146 Problem Gastroesophageal reflux disease, esophagitis presence not specified K21.9 Active 240624096 Problem Seasonal allergic rhinitis due to pollen J30.1 Active 36255690 Problem COPD exacerbation J44.1 Active 472231754 Problem Seasonal allergic rhinitis due to other allergic trigger J30.89 Active 045536142 Problem Schizoaffective disorder, depressive type F25.1 Active 95494551 Problem History of lupus Z87.39 Active 743125876 Problem Gastroesophageal reflux disease without esophagitis K21.9 Active 048973881 Problem Menopausal syndrome (hot flashes) N95.1 Active 620481021 Problem Other allergic rhinitis J30.89 Active 465521357 Problem Primary insomnia F51.01 Active 4741148 Problem DM neuro manif type II E11.49 Active 80708780 ALLERGIES No Information ENCOUNTERS Encounter Location Date Diagnosis [facility] [id number] [place] [address] 02166- 5187 Jan, [facility] [address] 44211- 0598 Jan, [facility] [address] 86067- 9326 Jan, [facility] [address] 51120- 7416 Dec, [facility] [address] 90781- 9068 Dec, Schizoaffective disorder, depressive type F25.1 [facility] [id number] [place] [address] 17630 -8103 Dec, Acute nasopharyngitis J00 [facility] [address] 71316- 5815 05 Dec, 2017 Schizoaffective disorder, depressive type F25.1 [facility] [id number] [place] [address] 54932- 2379 Dec, [facility] [id number] [place] [address] 19550- 7060 Nov, Schizoaffective disorder, depressive type F25.1 and BMI 45.0 -49.9, adult Z68.42 [facility] [address] 30490- 5300 Nov, [facility] [id number] [place] [address] 14242- 3013 Nov, [facility] [address] 42367- 5315 Nov, Schizoaffective disorder, depressive type F25.1 [place] [address] [address] 2668 16 Nov, 2017 Well woman exam Z01.419 ; BMI 45.0-49.9, adult Z68.42 ; Screening breast examination Z12.31 and Dietary counseling and surveillance Z71.3 [place] [id number] [place] [address] 64641- 4285 10 Nov, 2017 Paranoid schizophrenia F20.0 [place] [id number] [place] [address] 86455- 6233 09 Nov, 2017 Gastroesophageal reflux disease, esophagitis presence not specified K21.9 [place] [address] [place] [address] 66852- 5249 Oct, Paranoid schizophrenia F20.[address] [id number] [place] [address] Oct Chronic pain syndrome G89.4 and Schizoaffective disorder, depressive type F25.1 [place] [address] [place] [address] 13218- 9014 Oct, Chronic pain syndrome G89.4 and Schizoaffective disorder, depressive type F25.1 [place] [address] [place] [address] 34370- 5625 Oct, Type 2 diabetes mellitus without complication, without long- term current use of insulin E11.9 [place] [address] [place] [address] 86905- 1770 12 Oct, 2017 Essential hypertension I10 and DM neuro manif type II E11.49 [place] [address] [place] [address] 37917- 4648 Oct, [place] [address] [place] [address] 99193- 6183 Oct, Schizoaffective disorder, depressive type F25.1 and BMI 45.0 -49.9, adult Z68.42 [place] [address] [address] 9389 Oct, [facility] [id number] [place] [address] 80339- 5961 Oct, Paranoid schizophrenia F20.0 [facility] [id number] [address] 1105 Oct, Type 2 diabetes mellitus with diabetic neuropathic arthropathy, 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 ; Essential hypertension I10 ; Hypothyroidism (acquired) E03.9 ; Chronic obstructive pulmonary disease, unspecified COPD type J44.9 and Diabetic polyneuropathy associated with type 2 diabetes mellitus E11.42 [facility] [id number] [place] [address] 42420- 1753 Sep, Paranoid schizophrenia F20.0 [facility] [id number] [place] [address] 10725- 7665 Sep, Paranoid schizophrenia F20.0 and BMI 45.0-49.9, adult Z68.42 [facility] [id number] [place] [address] 45216- 6417 Sep, Schizoaffective disorder, depressive type F25.1 [facility] [id number] [place] [address] 79597- 0303 Sep, [facility] [id number] [place] [address] 10312- 4971 Sep, Paranoid schizophrenia F20.0 [facility] [address] [place] [address] 68837- 9193 Sep, [facility] [id number] [place] [address] 75998- 1250 Sep, Hypothyroidism (acquired) E03.9 [facility] [id number] [place] [address] 27778- 7953 Sep, [facility] [id number] [place] [address] 73544- 2330 August, Schizoaffective disorder, depressive type F25.1 [facility] [address] 23108- 7379 August, [facility] [address] 34382- 7637 August, [facility] [address] 31679- 5457 August, [place] [address] 01224- 2359 August, Paranoid schizophrenia F20.0 [place] [address] 53597- 3620 August, History of lupus Z87.39 and Chronic pain syndrome G89.4 [place] [address] 49679- 3091 August, [facility] [address] 56325 -3593 August, Seasonal allergic rhinitis, unspecified trigger J30.2 and BMI 45.0-49.9, adult Z68.42 [place] [address] 72395- 6902 Jul, Schizoaffective disorder, depressive type F25.1 [place] [id number] [place] [address] 81455- 0788 Jul, [place] [address] 26469- 3398 Jul, Hypothyroidism (acquired) E03.9 [place] [address] 06660- 7101 Jul, Chronic obstructive pulmonary disease, unspecified COPD type J44.9 and Type 2 diabetes mellitus without complication, without long-term current use of insulin E11.9 [place] [address] 43143- 3771 Jul, Paranoid schizophrenia F20.0 [facility] [address] 39634- 2806 Jun, Hypothyroidism (acquired) E03.9 and Seasonal allergic rhinitis due to pollen J30.1 [facility] [id number] [place] [address] 03244 -6895 Jun, Shortness of breath at rest R06.02 ; COPD exacerbation J44.1 and BMI 45.0-49.9, adult Z68.42 [facility] [address] 13094- 0099 Jun, [place] [address] 81748- 5813 Jun, Paranoid schizophrenia F20.0 ; Depression with anxiety F41.8 and BMI 45.0-49.9, adult Z68.42 [facility] [address] 85384- 6929 Jun, Schizoaffective disorder, depressive type F25.1 [facility] [address] [id number] Jun, Dental caries K02.9 [place] [address] 92693- 1334 Jun, Paranoid schizophrenia F20.0 [facility] [address] 81345- 3719 May, Migraine without aura and without status migrainosus, not intractable G43.009 ; DM neuro manif type II E11.49 and Type 2 diabetes mellitus without complication, without long-term current use of insulin E11.9 [facility] [address] 57013- 3315 May, Migraine without aura and without status migrainosus, not intractable G43.009 [place] [address] 44785- 3653 May, Depression with anxiety F41.8 [facility] [id number] [place] [address] [id number] May, [facility] [id number] [place] [address] 45577- 2293 May, [facility] [id number] [place] [address] 56827- 0137 May, [facility] [id number] [place] [address] 00244- 7618 May, Hypothyroidism (acquired) E03.9 [place] [address] 66457- 7161 May, Paranoid schizophrenia F20.0 [place] [id number] [place] [address] 01294- 6467 May, Type 2 diabetes mellitus without complication, [...] N32.81 and Controlled substance agreement signed Z79.899 [facility] [id number] [place] [address] 70254- 3382 May, Controlled substance agreement signed Z79.899 [place] [id number] [place] [address] 18555- 8265 Apr, [facility] [id number] [place] [address] [id number] Apr, Dental examination Z01.20 [place] [id number] [place] [address] 34272- 8684 Apr, Paranoid schizophrenia F20.0 [facility] [id number] [place] [address] 77517- 6169 Apr, Hypertension, unspecified type I10 [facility] [id number] [place] [address] 82027- 1259 Apr, Paranoid schizophrenia F20.0 [facility] [id number] [place] [address] 29879- 2525 Apr, [facility] [id number] [place] [address] 70850- 9896 Apr, Tobacco abuse Z72.0 [facility] [id number] [place] [address] 28261- 0461 Apr, [facility] [id number] [place] [address] 45042- 7981 Mar, [facility] [id number] [place] [address] 29289- 7632 Mar, Paranoid schizophrenia F20.0 and BMI 45.0-49.9, adult Z68.42 [facility] [id number] [place] [address] 42488- 1199 Mar, Schizoaffective disorder, depressive type F25.1 [facility] [id number] [place] [address] 02965- 5036 Mar, [facility] [id number] [place] [address] 69844- 1139 Mar, Hypothyroidism, unspecified type E03.9 [facility] [id number] [place] [address] 13368- 6035 Mar, Schizoaffective disorder, depressive type F25.1 [facility] [id number] [place] [address] 92069 -6628 Feb, Gastroenteritis K52.9 and BMI 45.0-49.9, adult Z68.42 [place] [id number] [place] [address] 48255- 7690 Feb, [place] [address] 62499- 1829 Feb, [place] [id number] [place] [address] 07869- 5197 Feb, [place] [address] 09108- 4286 Feb, [place] [address] 06788- 4851 Feb, Paranoid schizophrenia F20.[address] 17819- 3013 Feb, Gastroesophageal reflux disease without esophagitis K21.9 ; Other seasonal allergic rhinitis J30.2 ; Other allergic rhinitis J30.89 ; Tobacco abuse Z72.0 and BMI 40.0-44.9, adult Z68.41 [id number] [place] [address] 37194- 5018 Feb, Onychomycosis B35.1 ; Callus of foot L84 and DM neuro manif type II E11.49 [id number] [place] [address] 43697- 2222 Jan, Chronic allergic rhinitis J30.9 [id number] [place] [address] 86986- 0691 Jan, [id number] [place] [address] 79533- 3675 Jan, Schizoaffective disorder, depressive type F25.1 [id number] [place] [address] 05431- 8942 Jan, [facility] [id number] [place] [address] 82246 -0913 07 Jan, 2017 Sore throat J02.9 and Seasonal allergic rhinitis due to other allergic trigger J30.89 [facility] [id number] [place] [address] 12888- 3070 Jan, [facility] [id number] [place] [address] 47436- 2730 Jan, [facility] [id number] [place] [address] 47681 -3514 Jan, Chronic allergic rhinitis J30.9 [facility] [id number] [place] [address] 48709- 8934 Dec, Paranoid schizophrenia F20.0 ; Primary insomnia F51.01 and Schizoaffective disorder, depressive type F25.1 [place] [id number] [place] [address] 87829- 1159 Dec, Chronic pain syndrome G89.4 ; Cervicalgia of occipito- atlanto-axial region M54.2 ; Menopausal syndrome (hot flashes) N95.1 and Encounter for immunization Z23 [facility] [id number] [place] [address] 25964- 3099 14 Dec, 2016 [place] [id number] [place] [address] 90427- 2268 13 Dec, 2016 [place] [id number] [place] [address] 76707- 5031 08 Dec, 2016 Paranoid schizophrenia F20.0 [facility] [id number] [place] [address] 68310- 8702 Dec, Schizoaffective disorder, depressive type F25.1 [facility] [id number] [place] [address] 57810- 7005 Nov, Hypothyroidism, unspecified type E03.9 [facility] [id number] [place] [address] 04554 -3567 Nov, Acute seasonal allergic rhinitis due to other allergen J30.89 [facility] [id number] [place] [address] 02313- 0950 Nov, [place] [address] [place] [address] 48414- 9987 Nov, Hypothyroidism, unspecified type E03.9 and Other elevated white blood cell (WBC) count D72.828 [place] [id number] [place] [address] 10736- 9957 Nov, Schizoaffective disorder, depressive type F25.1 [place] [id number] [place] [address] 77766- 1369 Nov, Paranoid schizophrenia F20.0 [place] [id number] [place] [address] 25834- 2295 Nov, Type 2 diabetes mellitus without complication, without long- term current use of insulin E11.9 ; Morbid obesity due to excess calories E66.01 and Chronic pain syndrome G89.4 [place] [id number] [place] [address] 82559- 7864 Oct, Paranoid schizophrenia F20.0 [place] [id number] [place] [address] 91086- 3263 Oct, [place] [id number] [place] [address] 03036- 1535 Oct, Schizoaffective disorder, depressive type F25.1 [place] [id number] [place] [address] 24797- 5442 Oct, Hypothyroidism, unspecified type E03.9 and Other elevated white blood cell (WBC) count D72.828 [place] [address] [place] [address] 99110- 7013 Oct, Morbid obesity due to excess calories E66.01 ; Chronic obstructive pulmonary disease, unspecified COPD type J44.9 ; History of lupus Z87.39 ; Hypothyroidism, unspecified type E03.9 ; Gastroesophageal reflux disease without esophagitis K21.9 ; Primary insomnia F51.01 and Chronic pain syndrome G89.4 [place] [id number] [place] [address] 48790- 5929 Sep, [facility] [id number] [place] [address] 26739- 4270 Sep, [facility] [id number] [place] [address] 75643- 2911 Sep, [facility] [id number] [place] [address] 95167- 9117 Sep, Paranoid schizophrenia F20.0 [facility] [id number] [place] [address] 20673- 1664 Sep, [facility] [id number] [place] [address] 60339- 5190 Sep, Paranoid schizophrenia F20.0 [facility] [id number] [place] [address] 55702- 8174 Sep, [facility] [id number] [place] [address] 41778- 4874 August, Paranoid schizophrenia F20.0 [facility] [id number] [place] [address] 87790- 2779 Jul, [facility] [id number] [place] [address] 69450- 1958 Jul, Type 2 diabetes mellitus without complication, without long- term current use of insulin E11.9 ; Morbid obesity due to excess calories E66.01 ; Depression with anxiety F41.8 ; Hypothyroidism, unspecified type E03.9 ; Seasonal allergic rhinitis due to other allergic trigger J30.89 ; Pain, dental K08.89 and Gastroesophageal reflux disease without esophagitis K21.9 [facility] [address] [place] [address] [id number] Jul, Dental examination Z01.20 [facility] [id number] [place] [address] 73886- 3430 07 Jul, 2016 Paranoid schizophrenia F20.0 [facility] [id number] [place] [address] 61650- 9929 13 Jun, 2016 Paranoid schizophrenia F20.0 and Depression with anxiety F41.8 [place] [id number] [place] [address] 51942- 3764 10 Jun, 2016 Paranoid schizophrenia F20.0 and Depression with anxiety F41.8 [place] [id number] [place] [address] 04002- 3366 09 Jun, 2016 [place] [address] 56572- 3159 Jun, [facility] [place] [id number] [place] [address] 40537 -6435 Jun, Seasonal allergic rhinitis due to other allergic trigger J30.89 [facility] [place] [id number] [place] [address] 31911 -0298 May, Sore throat J02.9 ; Other viral agents as the cause of diseases classified elsewhere B97.89 and Acute upper respiratory infection, unspecified J06.9 [place] [id number] [place] [address] 98616- 6946 08 May, 2016 Paranoid schizophrenia F20.0 and Depression with anxiety F41.8 [place] [id number] [place] [address] 95417- 4982 Apr, Other seasonal allergic rhinitis J30.2 [place] [id number] [place] [address] 12059- 4095 Apr, Paranoid schizophrenia F20.0 and Depression with anxiety F41.8 [facility] [place] [id number] [place] [address] 07632 -6009 Apr, Bronchitis J40 and Sore throat J02.9 [place] [id number] [place] [address] 70747- 2109 Apr, Type 2 diabetes mellitus without complication, without long- term current use of insulin E11.9 [facility] [place] [id number] [place] [address] 95924 -1489 Apr, Bronchitis J40 [place] [id number] [place] [address] 34364- 0666 Apr, [place] [id number] [place] [address] 34958- 2615 Apr, [place] [id number] [place] [address] 68366- 2770 Mar, Type 2 diabetes mellitus without complication, [...] R60.9 and Other seasonal allergic rhinitis J30.2 [place] [id number] [place] [address] 02755- 2735 Mar, Paranoid schizophrenia F20.0 and Depression with anxiety F41.8 [place] [id number] [place] [address] 54676- 6230 Feb, [place] [id number] [place] [address] 54450- 7623 Feb, [place] [id number] [place] [address] 30653- 3112 Feb, [place] [id number] [place] [address] 55366- 4985 Feb, [place] [id number] [place] [address] [id number]- [phone] Feb, Type 2 diabetes mellitus without complication, without long- term current use of insulin E11.9 ; ARIAS on CPAP G47.33 and Preoperative evaluation to rule out surgical contraindication Z01.818 [place] [address] [place] [id number] [place] [address] 84186- 9644 Feb, Paranoid schizophrenia F20.0 and Depression with anxiety F41.8 [facility] [address] [facility] [id number] [address] 6[address] Jan, [facility] [address] [place] [id number] [place] [address] 89130- 8973 Jan, Paranoid schizophrenia F20.0 and Depression with anxiety F41.8 [facility] [address] [place] [id number] [place] [address] 36540- [id number] Jan, [facility] [address] [facility] [id number] [place] [address] [id number]- 3835 Jan, Muscle strain T14.8 [facility] [address] [facility] [id number] [place] [address] [id number]- 2910 Jan, Paranoid schizophrenia F20.0 [facility] [facility] [id number] [place] [address] 47151- 4339 Jan, [facility] [id number] [place] [address] 01593- 3001 Jan, Paranoid schizophrenia F20.0 and Depression with anxiety F41.8 [facility] [id number] [place] [address] 21978- 9877 Jan, [facility] [id number] [address] 5802 Jan, [facility] [id number] [place] [address] 90851- 2992 28 Dec, 2015 [facility] [address] [facility] [id number] [address] 3529 23 Dec, 2015 Paranoid schizophrenia F20.0 [facility] [address] [facility] [id number] [place] [address]- 5844 16 Dec, 2015 Paranoid schizophrenia F20.0 and Depression with anxiety F41.8 [facility] [address] [id number] [address]- 3291 Nov, [facility] [facility] [id number] [place] [address] 77941- 1314 Nov, Paranoid schizophrenia F20.0 [place] [facility] [id number] [place] [address] 40012- 0907 Nov, Paranoid schizophrenia F20.0 and Depression with anxiety F41.8 [address] [facility] [id number] [place] [address] 25111- 5024 Nov, Type 2 diabetes mellitus without complication, without long- term current use of insulin E11.9 ; Paranoid schizophrenia F20.0 ; Chronic obstructive pulmonary disease, unspecified COPD type J44.9 ; Morbid obesity due to excess calories E66.01 and Parkinsonian tremor G20 [address] [id number] [place] [address] 55382- 1647 Nov, [facility] [id number] [place] [address] 88341- 9313 Oct, Paranoid schizophrenia F20.0 [address] [facility] [id number] [place] [address] 04748- 0576 Oct, Paranoid schizophrenia F20.0 [facility] [id number] [place] [address] 68423- 9228 Oct, Paranoid schizophrenia F20.0 and Depression with anxiety F41.8 [address] [facility] [id number] [place] [address] 77716- 8897 Oct, [address] [facility] [id number] [place] [address] 46419- 9210 Oct, Paranoid schizophrenia F20.0 and Depression with anxiety F41.8 [place] [facility] [id number] [place] [address] 76180- 1681 Oct, Nasal sore J34.89 [address] [id number] [place] [address] 59724- 3846 Oct, Type 2 diabetes mellitus without complication, without long- term current use of insulin E11.9 ; Depression with anxiety F41.8 ; Hypothyroidism, unspecified type E03.9 and History of lupus Z87.39 [facility] [id number] [place] [address] 72755- 8719 Oct, [facility] [id number] [place] [address] 02668- 4713 Oct, Type 2 diabetes mellitus without complication, [...] edema R60.9 and History of lupus Z87.39 [address] [facility] [id number] [place] [address] [id number]- 0991 Feb, [facility] [id number] [place] [address] [id number]- 8774 Jan, [facility] [id number] [place] [address] [id number]- 8735 Jan, [facility] [id number] [place] [address] 17973- 2559 Jan, [facility] [id number] [place] [address] 86874- 7422 Dec, [facility] [id number] [place] [address] 21050- 4241 Nov, [facility] [address] 14137- 8486 Nov, [facility] [id number] [place] [address] 94403- 4116 Oct, [facility] [id number] [place] [address] 53121- 4128 Oct, [facility] [address] [facility] [id number] [place] [address]- 2991 Oct, [facility] [address] [facility] [id number] [place] [address]- 4160 Sep, Allergic rhinitis 477.9 [facility] [address] [facility] [id number] [place] [address]- 6930 Sep, Rhinitis, allergic 477.9 [facility] [address] [facility] [id number] [place] [address]- 3731 Sep, Rhinitis, allergic 477.9 [facility] [address] [facility] [id number] [place] [address]- 0724 Sep, [facility] [address] [facility] [id number] [place] [address]- 9270 August, [facility] [address] [facility] [id number] [place] [address]- 6689 August, [facility] [address] [facility] [id number] [place] [address]- 3402 August, [facility] [address] [facility] [id number] [place] [address]- 1170 28 Jul, 2014 [facility] [address] [facility] [id number] [place] [address]- 5605 14 Jul, 2014 [facility] [place] [facility] [address] [facility] [id number] [place] [address]- 8675 13 Jul, 2014 [facility] [place] [facility] [address] [facility] [id number] [place] [address]- 1579 16 Jun, 2014 [facility] [place] [facility] [address] [facility] [id number] [place] 6437 16 Jun, 2014 [facility] [place] [facility] [address] [facility] [id number] [place] [address]- 1936 Jun, [facility] [place] [facility] [address] [facility] [id number] [place] [address]- 0271 Jun, [facility] [place] [facility] [address] [id number] [place] [address]- 3209 Jun, [facility] [place] [facility] [address] [id number] [place] [address]- 6732 Jun, [facility] [place] [facility] [address] [id number] [place] [address]- 6730 Jun, [facility] [place] [facility] [address] [id number] [place] [address]- 9507 Jun, [facility] [place] [facility] [address] [id number] [place] [address]- 1471 May, [facility] [place] [facility] [address] [id number] [place] [address]- 6756 May, 2014 [facility] [place] [facility] [address] [id number] [place] [address]- 7742 May, [facility] [place] [facility] [address] [id number] [place] [address]- 6288 May, [facility] [place] [facility] [address] [id number] [place] [address]- 1883 Apr, [facility] [place] [facility] [address] [id number] [place] [address]- 3811 Mar, [facility] [place] [facility] [address] [id number] [place] [address]- 0748 Mar, [facility] [place] [facility] [address] [id number] [place] [address]- 7560 Mar, [facility] [place] [facility] [address] [id number] [place] [address]- 2671 Mar, [facility] [place] [facility] [address] [id number] [place] 9084 Mar, [facility] [place] [facility] [address] [id number] [place] 4507 Mar, [facility] [place] [facility] [address] [id number] [place] [address]- 1770 05 Mar, 2014 [facility] [place] [facility] [address] [id number] [place] [address]- 0133 Mar, [facility] [place] [facility] [address] [id number] [place] [address]- 8156 Mar, [facility] [place] [facility] [address] [id number] [place] 9067 Feb, [facility] [place] [facility] [address] [id number] [place] [address]- 8022 Feb, [facility] [place] [facility] [address] [id number] [place] [address]- 8111 Feb, [facility] [place] [facility] [address] [id number] [place] [address]- 4281 Feb, [facility] [place] [facility] [address] [id number] [place] [address]- 0965 Feb, [facility] [place] [facility] [address] [id number] [place] [address]- 2629 Feb, [facility] [place] [facility] [address] [id number] [place] [address]- 2869 Feb, [facility] [place] [facility] [address] [id number] [place] [address]- 8063 Feb, [facility] [place] [facility] [address] [id number] [place] [address]- 1845 Jan, [facility] [place] [facility] [address] [id number] [place] [address]- 2322 Jan, [facility] [place] [facility] [address] [id number] [place] [address]- 3655 16 Jan, 2014 [facility] [place] [facility] [address] [id number] [place] 1933 16 Jan, 2014 [facility] [place] [facility] [address] [id number] [place] [address]- 2223 15 Jan, 2014 [facility] [place] [facility] [address] [id number] [place] [address]- 2996 15 Jan, 2014 [facility] [place] [facility] [address] [id number] [place] [address]- 5573 14 Jan, 2014 [facility] [place] [facility] [address] [id number] [place] [address]- 8721 14 Jan, 2014 [facility] [place] [facility] [address] [id number] [place] [address]- 7863 14 Jan, 2014 [facility] [place] [facility] [address] [id number] [place] [address]- 5598 14 Jan, 2014 [facility] [place] [facility] [address] [id number] [place] [address]- 8287 18 Dec, 2013 [facility] [place] [facility] [address] [id number] [place] [address]- 2615 18 Dec, 2013 [facility] [place] [facility] [address] [id number] [place] [address]- 9590 10 Dec, 2013 [facility] [place] [facility] [address] [id number] [place] [address]- 1744 10 Dec, 2013 [facility] [place] [facility] [address] [id number] [place] [address]- 8052 Nov, [facility] [place] [facility] [address] [id number] [place] [address]- 1236 Nov, [facility] [place] [facility] [address] [id number] [address]- 9557 Nov, [facility] [place] [facility] [address] [id number] [place] [address]- 2541 Nov, [facility] [place] [facility] [address] [id number] [place] [address]- 2163 Nov, [facility] [place] [facility] [address] [id number] [place] [address]- 7393 Oct, [facility] [place] [facility] [address] [id number] [place] [address]- 2092 Oct, [facility] [place] [facility] [address] [id number] [place] [address]- 2494 Oct, [facility] [place] [facility] [address] [id number] [place] [address]- 5430 Oct, [facility] [place] [facility] [address] [id number] [place] [address]- 9371 Sep, [facility] [place] [facility] [address] [id number] [place] [address]- 0649 Sep, [facility] [place] [facility] [address] [id number] [place] [address]- 4768 Sep, [facility] [place] [facility] [address] [id number] [place] [address]- 2691 Sep, [facility] [place] [facility] [address] [id number] [place] [address]- 5817 Sep, [facility] [place] [facility] [address] [id number] [place] [address]- 5697 Sep, [facility] [place] [facility] [address] [id number] [place] [address]- 7067 Sep, [facility] [place] [facility] [address] [id number] [place] [address]- 1752 Sep, [facility] [place] [facility] [address] [id number] [place] [address]- 6948 August, [facility] [place] [facility] [address] [id number] [place] [address]- 7057 August, [facility] [place] [facility] [address] [id number] [place] [address]- 5300 August, [facility] [place] [facility] [address] [id number] [place] [address]- 6925 August, [facility] [place] [facility] [address] [id number] [place] [address]- 6175 August, [facility] [place] [facility] [address] [id number] [place] [address]- 1623 August, [facility] [place] [facility] [address] [id number] [place] [address]- 2706 August, [facility] [place] [facility] [address] [id number] [place] [address]- 7905 Jul, [facility] [place] [facility] [address] [id number] [place] [address]- 3323 Jul, [facility] [place] [facility] [address] [id number] [place] [address]- 8259 Jul, [facility] [place] [facility] [address] [id number] [place] [address]- 5117 Jul, [facility] [place] [facility] [address] [id number] [place] [address]- 6138 Jul, [facility] [place] [facility] [address] [id number] [place] [address]- 7857 Jul, [facility] [place] [facility] [address] [id number] [place] [address]- 4787 Jul, [facility] [place] [facility] [address] [id number] [place] [address]- 9379 Jul, [facility] [place] [facility] [address] [id number] [place] [address]- 9828 Jul, [facility] [place] [facility] [address] [id number] [place] [address]- 2313 Jul, [facility] [place] [facility] [address] [id number] [place] 8607 Jul, [facility] [place] [facility] [address] [id number] [place] [address]- 1496 Jul, [facility] [place] [facility] [address] [id number] [place] [address]- 1401 Jun, [facility] [place] [facility] [address] [id number] [place] [address]- 9042 Jun, [facility] [place] [facility] [address] [id number] [place] [address]- 2268 Jun, [facility] [place] [facility] [address] [id number] [place] [address]- 4200 Jun, [facility] [place] [facility] [address] [id number] [place] [address]- 5537 Jun, [facility] [place] [facility] [address] [id number] [place] [address]- 0621 May, [facility] [place] [facility] [address] [id number] [place] [address]- 2007 May, [facility] [place] [facility] [address] [id number] [place] [address]- 7416 May, [facility] [place] [facility] [address] [id number] [place] [address]- 0892 May, [facility] [place] [facility] [address] [id number] [place] [address]- 8353 May, [facility] [place] [facility] [address] [id number] [place] [address]- 4468 May, [facility] [place] [facility] [address] [facility] [id number] [place] [address]- 4058 May, [facility] [place] [facility] [address] [id number] [place] [address]- 3454 May, [facility] [place] [facility] [address] [id number] [place] [address]- 2056 Mar, [facility] [place] [facility] [address] [id number] [place] [address]- 4917 Mar, [facility] [place] [facility] [address] [facility] [id number] [place] [address]- 5770 Mar, [facility] [place] [facility] [address] [facility] [id number] [place] [address]- 8907 Mar, [facility] [place] [facility] [address] [id number] [place] [address]- 4742 Mar, [facility] [place] [facility] [address] [id number] [place] [address]- 7526 Mar, [facility] [place] [facility] [address] [id number] [place] [address]- 5652 Feb, [facility] [place] [facility] [address] [id number] [place] [address]- 9954 Feb, [facility] [place] [facility] [address] [id number] [place] [address]- 6793 Jan, [facility] [place] [facility] [address] [id number] [place] [address]- 1576 Jan, [facility] [place] [facility] [address] [id number] [place] [address]- 9119 Jan, [facility] [place] [facility] [address] [id number] [place] [address]- 4816 Jan, [facility] [place] [facility] [address] [id number] [place] [address]- 4167 Jan, [facility] [place] [facility] [address] [id number] [place] [address]- 7060 Jan, [facility] [place] [facility] [address] [id number] [place] [address]- 8681 Jan, [facility] [place] [facility] [address] [id number] [place] [address]- 0511 Jan, [facility] [place] [facility] [address] [id number] [place] [address]- 8508 08 Jan, 2013 [facility] [place] [facility] [address] [id number] [place] [address]- 1370 Jan, [facility] [place] [facility] [address] [id number] [place] [address]- 2546 16 Dec, 2012 [facility] [place] [facility] [address] [id number] [place] [address]- 1032 Nov, [facility] [address] [facility] [id number] [place] [address]- 9245 Nov, [facility] [address] [facility] [id number] [place] [address]- 0196 Nov, [facility] [address] [facility] [id number] [place] [address]- 4446 Oct, [facility] [address] [facility] [id number] [place] [address]- 9826 Oct, [facility] [address] [facility] [id number] [place] [address]- 0043 August, [facility] [address] [facility] [id number] [place] [address]- 8846 Apr, [facility] [address] [facility] [id number] [place] [address]- 6986 Apr, [facility] [address] [facility] [id number] [place] [address]- 5434 Feb, [facility] [address] [facility] [id number] [place] 7283 Feb, [facility] [address] [facility] [id number] [place] [address]- 2100 Dec, [facility] [address] [facility] [id number] [place] [address]- 8777 Dec, [facility] [address] [facility] [id number] [place] [address]- 0745 Oct, [facility] [address] [facility] [id number] [place] [address]- 2795 Oct, [facility] [address] [facility] [id number] [place] [address]- 6394 Oct, [facility] [address] [facility] [id number] [place] [address]- 4105 Jul, IMMUNIZATIONS Vaccine Route Administration Date Status INVEGA (PT'S OWN) IM Intramuscular Dec 03, 2017 Administered SOCIAL HISTORY Never Assessed REASON FOR VISIT Injection-Ian Bill MA PLAN OF CARE VITAL SIGNS MEDICATIONS Medication Instructions Dosage Frequency Start Date End Date Duration Status Ambien 5 mg Orally Once a day 1 tablet at bedtime 24h Oct, 28 days Unknown Levothyroxine Sodium 175 MCG Orally Once a day 1 tablet 24h 30 Unknown Breo Ellipta 100-25 mcg/inh Inhalation Once a day INHALE ONE PUFF BY MOUTH ONCE DAILY AT THE SAME TIME EACH DAY 24h Oct, 12 months Unknown Myrbetriq 50 MG Orally Once a day 1 tablet 24h Unknown True Metrix Meter w/Device as directed Oct, Unknown Zoloft 50 MG Orally Once a day 1 tablet 24h Unknown Cetirizine HCl 10 mg Orally Once a day 1 tablet 24h Jun, Sep, 90 days Unknown HydrOXYzine HCl 50 mg TAKE ONE TO TWO TABLETS BY MOUTH EVERY 8 HOURS NEEDED FOR 30 DAYS Unknown Incontinence Supply Disposable SUPPLIES as directed Feb, 30 days Unknown Fluticasone Propionate 50 MCG/ACT Nasally Once a day 1 spray in each nostril 24h Jun, 30 day(s) Unknown Januvia 100MG Orally Once a day 1 tablet 24h 30 Unknown Tramadol HCl 50 mg Orally 2 times a day 1 tablet as needed 12h 28 days Unknown Ibuprofen 800MG TAKE ONE TABLET BY MOUTH THREE TIMES DAILY NEEDED Unknown Gabapentin 600 MG Orally Three times a day 1 tablet 8h Unknown Spironolactone 50MG Orally Once a day 1 tablet 24h Unknown Plaquenil 200 mg Orally Once a day 1 tablet with food or milk 24h Unknown Singulair 10 MG Orally Once a day 1 tablet in the evening 24h Jan, 30 day(s) Unknown Tizanidine HCl 4 MG Orally 3 times a day 1 1/2 tablets 8h Unknown Metformin HCl 1000MG Orally 2 times a day TAKE ONE TABLET BY MOUTH TWICE DAILY 12h 90 Unknown Loxapine Succinate 25 MG Orally 4 times a day PRN 1 capsule Unknown Pravastatin Sodium 20 MG Orally Once a day 1 tablet 24h Unknown Neurontin 600 mg Orally 2 times a day 1 tablet 12h 30 days Unknown Omeprazole 40 MG Orally Once a day 1 capsule 24h Unknown Lisinopril 2.5 MG Orally Once a day 1 tablet 24h Nov, Unknown True Metrix Blood Glucose Test - subcutaneously 2 times a day as directed ( pt tests twice daily) 12h 11 Oct, 2017 30 days Unknown Zoloft 100 MG Orally Once a day 2 tablet 24h Mar, Unknown Ventolin HFA 108 (90 Base) MCG/ACT Inhalation every 4 hrs PRN 2 puffs as needed Feb, 12 months Unknown Restasis 0.05 % instill 1 drop into affected eye(s) by ophthalmic route 2 times per day Oct, Unknown Norvasc 10 mg Orally Once a day 1 tablet 24h Unknown Sumatriptan Succinate 50 MG TAKE 1 TABLET BY MOUTH NEEDED FOR MIGRAINE- MAY REPEAT IN 2 HOURS IF NEEDED (TWICE A DAY) 10 Unknown True Metrix Blood Glucose Test - In Vitro 4 times a day as directed 6h Oct, 30 days Unknown Invega Sustenna 234 MG/1.5ML Intramuscular Once a month, on the 10th of every month 1.5 ml Unknown True Metrix Meter w/Device as directed Oct, Unknown Estradiol 1 MG TAKE 1 TABLET BY MOUTH ONCE DAILY 30 Unknown RESULTS No Results PROCEDURES Procedure Date Ordered Result Body Site INVEGA (PT'S OWN) Dec 03, 2017 THER/PROPH/DIAG INJ, SC/IM Dec 03, 2017 INSTRUCTIONS MEDICATIONS ADMINISTERED No Known Medications [...] illness , last one in [facility] 4 years ago
--- OUTSIDE RECORDS SUMMARY | 2018-09-02 13:29 | XMS REPORT ---
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 Name Role Phone UMESH PINEDA Unavailable PROBLEMS Type Condition ICD9-CM Code CKT93-SX Code Onset Dates Condition Status SNOMED Code Problem OAB (overactive bladder) N32.81 Active 575133638 Problem Depression with anxiety F41.8 Active 062017672 Problem Other seasonal allergic rhinitis J30.2 Active 369552645 Problem Chronic obstructive pulmonary disease, unspecified COPD type J44.9 Active 33423446 Problem Tobacco abuse Z72.0 Active 769512112 Problem Morbid obesity due to excess calories E66.01 Active 468325490 Problem Dyslipidemia E78.5 Active 208346551 Problem Hypothyroidism (acquired) E03.9 Active 372557708 Problem Essential hypertension I10 Active 48281858 Problem Diabetic polyneuropathy associated with type 2 diabetes mellitus E11.42 Active 131336151 Problem Type 2 diabetes mellitus with diabetic neuropathic arthropathy, 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 Active 749447040 Problem Type 2 diabetes mellitus without complication, without long-term current use of insulin E11.9 Active 345451712 Problem Paranoid schizophrenia F20.0 Active 34677300 Problem Chronic pain syndrome G89.4 Active 454089470 Problem Migraine without aura and without status migrainosus, not intractable G43.009 Active 261588676 Problem Gastroesophageal reflux disease, esophagitis presence not specified K21.9 Active 057343255 Problem Seasonal allergic rhinitis due to pollen J30.1 Active 98578654 Problem COPD exacerbation J44.1 Active 748557619 Problem Seasonal allergic rhinitis due to other allergic trigger J30.89 Active 470100522 Problem Schizoaffective disorder, depressive type F25.1 Active 45948606 Problem History of lupus Z87.39 Active 618963196 Problem Gastroesophageal reflux disease without esophagitis K21.9 Active 223304171 Problem Menopausal syndrome (hot flashes) N95.1 Active 150373764 Problem Other allergic rhinitis J30.89 Active 818644571 Problem Primary insomnia F51.01 Active 8174831 Problem DM neuro manif type II E11.49 Active 35532363 ALLERGIES No Information ENCOUNTERS Encounter Location Date Diagnosis [facility] [id number] [place] [address] 93998- 1941 Jan, [facility] [address] 97227- 0236 Jan, [facility] [address] 53481- 4582 Jan, [facility] [address] 69910- 6800 Dec, [facility] [address] 71924- 0915 Dec, Schizoaffective disorder, depressive type F25.1 [facility] [id number] [place] [address] 71868 -3805 Dec, Acute nasopharyngitis J00 [facility] [address] 92824- 7433 05 Dec, 2017 Schizoaffective disorder, depressive type F25.1 [facility] [id number] [place] [address] 65080- 2364 Dec, [facility] [id number] [place] [address] 62388- 4091 Nov, Schizoaffective disorder, depressive type F25.1 and BMI 45.0 -49.9, adult Z68.42 [facility] [address] 95531- 5375 Nov, [facility] [id number] [place] [address] 06768- 5317 Nov, [facility] [address] 66473- 9586 Nov, Schizoaffective disorder, depressive type F25.1 [place] [id number] [address] 16 Nov, 2017 Well woman exam Z01.419 ; BMI 45.0-49.9, adult Z68.42 ; Screening breast examination Z12.31 and Dietary counseling and surveillance Z71.3 [place] [id number] [place] [address] 92228- 8802 10 Nov, 2017 Paranoid schizophrenia F20.0 [place] [address] [place] [address] 28780- 3937 09 Nov, 2017 Gastroesophageal reflux disease, esophagitis presence not specified K21.9 [place] [address] [place] [address] 50466- 5012 Oct, Paranoid schizophrenia F20.[address] [id number] [place] [address] Oct Chronic pain syndrome G89.4 and Schizoaffective disorder, depressive type F25.1 [place] [address] [place] [address] 67002- 7532 Oct, Chronic pain syndrome G89.4 and Schizoaffective disorder, depressive type F25.1 [place] [address] [place] [address] 63196- 8305 Oct, Type 2 diabetes mellitus without complication, without long- term current use of insulin E11.9 [place] [address] [place] [address] 14397- 6706 12 Oct, 2017 Essential hypertension I10 and DM neuro manif type II E11.49 [place] [address] [place] [address] 80320- 4233 Oct, [place] [address] [place] [address] 29886- 8849 Oct, Schizoaffective disorder, depressive type F25.1 and BMI 45.0 -49.9, adult Z68.42 [place] [address] [address] 3202 Oct, [facility] [id number] [place] [address] 64647- 9983 Oct, Paranoid schizophrenia F20.0 [facility] [id number] [address] 8574 Oct, Type 2 diabetes mellitus with diabetic neuropathic arthropathy, 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 ; Essential hypertension I10 ; Hypothyroidism (acquired) E03.9 ; Chronic obstructive pulmonary disease, unspecified COPD type J44.9 and Diabetic polyneuropathy associated with type 2 diabetes mellitus E11.42 [facility] [id number] [place] [address] 55227- 9815 Sep, Paranoid schizophrenia F20.0 [facility] [id number] [place] [address] 86835- 4988 Sep, Paranoid schizophrenia F20.0 and BMI 45.0-49.9, adult Z68.42 [facility] [id number] [place] [address] 10621- 8854 Sep, Schizoaffective disorder, depressive type F25.1 [facility] [id number] [place] [address] 70189- 5988 Sep, [facility] [id number] [place] [address] 38274- 2180 Sep, Paranoid schizophrenia F20.0 [facility] [address] [place] [address] 41101- 0695 Sep, [facility] [id number] [place] [address] 28284- 8683 Sep, Hypothyroidism (acquired) E03.9 [facility] [id number] [place] [address] 79582- 7530 Sep, [facility] [id number] [place] [address] 57962- 5324 August, Schizoaffective disorder, depressive type F25.1 [facility] [address] 80033- 6080 August, [facility] [address] 77800- 9371 August, [facility] [address] 80220- 2495 August, [place] [address] 24971- 0973 August, Paranoid schizophrenia F20.0 [place] [address] 51760- 1901 August, History of lupus Z87.39 and Chronic pain syndrome G89.4 [place] [address] 80416- 1199 August, [facility] [address] 14387 -9671 August, Seasonal allergic rhinitis, unspecified trigger J30.2 and BMI 45.0-49.9, adult Z68.42 [place] [address] 61306- 5323 Jul, Schizoaffective disorder, depressive type F25.1 [place] [id number] [place] [address] 94207- 3485 Jul, [place] [address] 18904- 2360 Jul, Hypothyroidism (acquired) E03.9 [place] [address] 45632- 3736 Jul, Chronic obstructive pulmonary disease, unspecified COPD type J44.9 and Type 2 diabetes mellitus without complication, without long-term current use of insulin E11.9 [place] [address] 86350- 0225 Jul, Paranoid schizophrenia F20.0 [facility] [address] 53870- 6550 Jun, Hypothyroidism (acquired) E03.9 and Seasonal allergic rhinitis due to pollen J30.1 [facility] [id number] [place] [address] 35897 -2274 Jun, Shortness of breath at rest R06.02 ; COPD exacerbation J44.1 and BMI 45.0-49.9, adult Z68.42 [facility] [address] 51384- 5919 Jun, [place] [address] 78401- 2167 Jun, Paranoid schizophrenia F20.0 ; Depression with anxiety F41.8 and BMI 45.0-49.9, adult Z68.42 [facility] [address] 55632- 8989 Jun, Schizoaffective disorder, depressive type F25.1 [facility] [address] [id number] Jun, Dental caries K02.9 [place] [address] 70235- 4099 Jun, Paranoid schizophrenia F20.0 [facility] [address] 70374- 9899 May, Migraine without aura and without status migrainosus, not intractable G43.009 ; DM neuro manif type II E11.49 and Type 2 diabetes mellitus without complication, without long-term current use of insulin E11.9 [facility] [address] 12610- 3814 May, Migraine without aura and without status migrainosus, not intractable G43.009 [place] [address] 72394- 9805 May, Depression with anxiety F41.8 [facility] [id number] [place] [address] [id number] May, [facility] [id number] [place] [address] 52160- 2386 May, [facility] [id number] [place] [address] 11104- 1119 May, [facility] [id number] [place] [address] 20617- 5218 May, Hypothyroidism (acquired) E03.9 [place] [address] 83096- 3347 May, Paranoid schizophrenia F20.0 [place] [id number] [place] [address] 91425- 1966 May, Type 2 diabetes mellitus without complication, [...] N32.81 and Controlled substance agreement signed Z79.899 [facility] [id number] [place] [address] 75742- 0246 May, Controlled substance agreement signed Z79.899 [place] [id number] [place] [address] 37067- 2201 Apr, [facility] [id number] [place] [address] [id number] Apr, Dental examination Z01.20 [place] [id number] [place] [address] 43432- 9054 Apr, Paranoid schizophrenia F20.0 [facility] [address] [place] [address] 37626- 2437 Apr, Hypertension, unspecified type I10 [facility] [address] [place] [address] 59102- 6312 Apr, Paranoid schizophrenia F20.0 [facility] [id number] [place] [address] 05569- 8973 Apr, [facility] [id number] [place] [address] 67014- 3508 Apr, Tobacco abuse Z72.0 [facility] [id number] [place] [address] 74671- 8530 Apr, [facility] [id number] [place] [address] 69089- 5665 Mar, [facility] [id number] [place] [address] 45372- 6148 Mar, Paranoid schizophrenia F20.0 and BMI 45.0-49.9, adult Z68.42 [facility] [id number] [place] [address] 99133- 9960 Mar, Schizoaffective disorder, depressive type F25.1 [facility] [address] [place] [address] 60824- 1220 Mar, [facility] [id number] [place] [address] 70332- 7560 Mar, Hypothyroidism, unspecified type E03.9 [facility] [address] [place] [address] 93926- 4757 Mar, Schizoaffective disorder, depressive type F25.1 [facility] [address] [place] [address] 55577 -7737 Feb, Gastroenteritis K52.9 and BMI 45.0-49.9, adult Z68.42 [place] [id number] [place] [address] 93037- 3113 Feb, [place] [address] 76634- 9576 Feb, [place] [id number] [place] [address] 97857- 9059 Feb, [place] [address] 49483- 9462 Feb, [place] [address] 52364- 0591 Feb, Paranoid schizophrenia F20.[address] 24275- 7321 Feb, Gastroesophageal reflux disease without esophagitis K21.9 ; Other seasonal allergic rhinitis J30.2 ; Other allergic rhinitis J30.89 ; Tobacco abuse Z72.0 and BMI 40.0-44.9, adult Z68.41 [id number] [place] [address] 05357- 3792 Feb, Onychomycosis B35.1 ; Callus of foot L84 and DM neuro manif type II E11.49 [id number] [place] [address] 94642- 4435 Jan, Chronic allergic rhinitis J30.9 [id number] [place] [address] 27369- 4345 Jan, [id number] [place] [address] 16328- 8835 Jan, Schizoaffective disorder, depressive type F25.1 [id number] [place] [address] 87210- 3965 Jan, [facility] [id number] [place] [address] 78330 -7245 07 Jan, 2017 Sore throat J02.9 and Seasonal allergic rhinitis due to other allergic trigger J30.89 [facility] [address] [place] [address] 96403- 7340 Jan, [facility] [id number] [place] [address] 17129- 2722 Jan, [facility] [id number] [place] [address] 45524 -5499 Jan, Chronic allergic rhinitis J30.9 [facility] [id number] [place] [address] 93249- 9721 Dec, Paranoid schizophrenia F20.0 ; Primary insomnia F51.01 and Schizoaffective disorder, depressive type F25.1 [place] [id number] [place] [address] 15034- 6718 Dec, Chronic pain syndrome G89.4 ; Cervicalgia of occipito- atlanto-axial region M54.2 ; Menopausal syndrome (hot flashes) N95.1 and Encounter for immunization Z23 [facility] [id number] [place] [address] 31243- 7055 14 Dec, 2016 [place] [id number] [place] [address] 45655- 3830 13 Dec, 2016 [place] [id number] [place] [address] 68338- 8990 08 Dec, 2016 Paranoid schizophrenia F20.0 [facility] [id number] [place] [address] 38312- 7526 Dec, Schizoaffective disorder, depressive type F25.1 [facility] [id number] [place] [address] 64349- 5646 Nov, Hypothyroidism, unspecified type E03.9 [facility] [id number] [place] [address] 11755 -0612 Nov, Acute seasonal allergic rhinitis due to other allergen J30.89 [facility] [id number] [place] [address] 88212- 7839 Nov, [place] [address] [place] [address] 66349- 3374 Nov, Hypothyroidism, unspecified type E03.9 and Other elevated white blood cell (WBC) count D72.828 [place] [id number] [place] [address] 61849- 4939 Nov, Schizoaffective disorder, depressive type F25.1 [place] [id number] [place] [address] 62413- 1413 Nov, Paranoid schizophrenia F20.0 [place] [id number] [place] [address] 76297- 1523 Nov, Type 2 diabetes mellitus without complication, without long- term current use of insulin E11.9 ; Morbid obesity due to excess calories E66.01 and Chronic pain syndrome G89.4 [place] [id number] [place] [address] 60694- 9830 Oct, Paranoid schizophrenia F20.0 [place] [id number] [place] [address] 02597- 9910 Oct, [place] [id number] [place] [address] 50856- 4116 Oct, Schizoaffective disorder, depressive type F25.1 [place] [id number] [place] [address] 86115- 9785 Oct, Hypothyroidism, unspecified type E03.9 and Other elevated white blood cell (WBC) count D72.828 [place] [address] [place] [address] 30495- 6676 Oct, Morbid obesity due to excess calories E66.01 ; Chronic obstructive pulmonary disease, unspecified COPD type J44.9 ; History of lupus Z87.39 ; Hypothyroidism, unspecified type E03.9 ; Gastroesophageal reflux disease without esophagitis K21.9 ; Primary insomnia F51.01 and Chronic pain syndrome G89.4 [place] [id number] [place] [address] 57212- 3947 Sep, [facility] [id number] [place] [address] 96083- 5507 Sep, [facility] [id number] [place] [address] 19695- 4144 Sep, [facility] [id number] [place] [address] 02170- 1269 Sep, Paranoid schizophrenia F20.0 [facility] [id number] [place] [address] 48192- 8063 Sep, [facility] [id number] [place] [address] 68522- 7413 Sep, Paranoid schizophrenia F20.0 [facility] [id number] [place] [address] 22317- 1348 Sep, [facility] [id number] [place] [address] 23727- 2557 August, Paranoid schizophrenia F20.0 [facility] [id number] [place] [address] 21236- 5908 Jul, [facility] [id number] [place] [address] 13269- 9753 Jul, Type 2 diabetes mellitus without complication, without long- term current use of insulin E11.9 ; Morbid obesity due to excess calories E66.01 ; Depression with anxiety F41.8 ; Hypothyroidism, unspecified type E03.9 ; Seasonal allergic rhinitis due to other allergic trigger J30.89 ; Pain, dental K08.89 and Gastroesophageal reflux disease without esophagitis K21.9 [facility] [address] [place] [address] [id number] Jul, Dental examination Z01.20 [facility] [id number] [place] [address] 29442- 1214 07 Jul, 2016 Paranoid schizophrenia F20.0 [facility] [id number] [place] [address] 44013- 9591 13 Jun, 2016 Paranoid schizophrenia F20.0 and Depression with anxiety F41.8 [place] [id number] [place] [address] 62601- 7074 10 Jun, 2016 Paranoid schizophrenia F20.0 and Depression with anxiety F41.8 [place] [id number] [place] [address] 23505- 9881 09 Jun, 2016 [place] [address] 01041- 4224 Jun, [facility] [place] [id number] [place] [address] 17607 -1527 Jun, Seasonal allergic rhinitis due to other allergic trigger J30.89 [facility] [place] [id number] [place] [address] 77762 -7300 May, Sore throat J02.9 ; Other viral agents as the cause of diseases classified elsewhere B97.89 and Acute upper respiratory infection, unspecified J06.9 [place] [id number] [place] [address] 82502- 5393 08 May, 2016 Paranoid schizophrenia F20.0 and Depression with anxiety F41.8 [place] [id number] [place] [address] 65440- 9603 Apr, Other seasonal allergic rhinitis J30.2 [place] [id number] [place] [address] 42776- 7016 Apr, Paranoid schizophrenia F20.0 and Depression with anxiety F41.8 [facility] [place] [id number] [place] [address] 76837 -3971 Apr, Bronchitis J40 and Sore throat J02.9 [place] [id number] [place] [address] 35513- 7318 Apr, Type 2 diabetes mellitus without complication, without long- term current use of insulin E11.9 [facility] [place] [id number] [place] [address] 72490 -3202 Apr, Bronchitis J40 [place] [id number] [place] [address] 20548- 0186 Apr, [place] [id number] [place] [address] 83919- 7232 Apr, [place] [id number] [place] [address] 89523- 6828 Mar, Type 2 diabetes mellitus without complication, [...] R60.9 and Other seasonal allergic rhinitis J30.2 [place] [id number] [place] [address] 99319- 4346 Mar, Paranoid schizophrenia F20.0 and Depression with anxiety F41.8 [place] [id number] [place] [address] [phone]- [phone] Feb, [place] [address] [place] [id number] [place] [address] 37350- 9451 Feb, [place] [address] [place] [id number] [place] [address] 93875- 8299 Feb, [place] [address] [place] [id number] [place] [address] 54522- 9303 Feb, [place] [address] [place] [id number] [place] [address] 08101- 1032 Feb, Type 2 diabetes mellitus without complication, without long- term current use of insulin E11.9 ; ARIAS on CPAP G47.33 and Preoperative evaluation to rule out surgical contraindication Z01.818 [place] [address] [place] [id number] [place] [address] 13559- 0936 Feb, Paranoid schizophrenia F20.0 and Depression with anxiety F41.8 [facility] [address] [facility] [id number] [address] Jan, [facility] [address] [place] [id number] [place] [address] [phone]- 1662 Jan, Paranoid schizophrenia F20.0 and Depression with anxiety F41.8 [facility] [address] [place] [id number] [place] [address] 33282- 5688 Jan, [facility] [address] [facility] [id number] [place] [address] 72457- 8810 Jan, Muscle strain T14.8 [facility] [address] [facility] [id number] [place] [address] 60961- 4960 Jan, Paranoid schizophrenia F20.0 [facility] [address] [place] [id number] [place] [address] 84715- 7706 Jan, [facility] [address] [place] [id number] [place] [address] 17733- 9945 Jan, Paranoid schizophrenia F20.0 and Depression with anxiety F41.8 [facility] [facility] [id number] [place] [address] 41361- 5940 Jan, [facility] [address] [id number] [address] 1494 Jan, [facility] [id number] [place] [address] 25320- 6396 28 Dec, 2015 [facility] [address] [facility] [id number], [place] [address] 2333 23 Dec, 2015 Paranoid schizophrenia F20.0 [facility] [address] [facility] [id number] [place] [address]- 6726 16 Dec, 2015 Paranoid schizophrenia F20.0 and Depression with anxiety F41.8 [facility] [address] [id number] [address] 1273 Nov, [place] [id number] [place] [address] 91020- 8874 Nov, Paranoid schizophrenia F20.0 [place] [id number] [place] [address] 58733- 8730 Nov, Paranoid schizophrenia F20.0 and Depression with anxiety F41.8 [place] [id number] [place] [address] 32205- 4048 Nov, Type 2 diabetes mellitus without complication, without long- term current use of insulin E11.9 ; Paranoid schizophrenia F20.0 ; Chronic obstructive pulmonary disease, unspecified COPD type J44.9 ; Morbid obesity due to excess calories E66.01 and Parkinsonian tremor G20 [address] [id number] [place] [address] 12636- 8358 Nov, [place] [id number] [place] [address] 75244- 0476 Oct, Paranoid schizophrenia F20.0 [place] [id number] [place] [address] 58100- 7287 Oct, Paranoid schizophrenia F20.0 [place] [id number] [place] [address] 57694- 0502 Oct, Paranoid schizophrenia F20.0 and Depression with anxiety F41.8 [place] [id number] [place] [address] 00401- 1561 Oct, [place] [id number] [place] [address] 16373- 8767 Oct, Paranoid schizophrenia F20.0 and Depression with anxiety F41.8 [place] [id number] [place] [address] 33509- 8820 Oct, Nasal sore J34.89 [address] [id number] [place] [address] 59854- 9787 Oct, Type 2 diabetes mellitus without complication, without long- term current use of insulin E11.9 ; Depression with anxiety F41.8 ; Hypothyroidism, unspecified type E03.9 and History of lupus Z87.39 [facility] [id number] [place] [address] 78700- 7046 Oct, [facility] [id number] [place] [address] 80595- 1213 Oct, Type 2 diabetes mellitus without complication, [...] edema R60.9 and History of lupus Z87.39 [place] [id number] [place] [address] [id number] 0528 Feb, [facility] [id number] [place] [address] [id number] 4091 Jan, [facility] [id number] [place] [address] [id number] 2242 Jan, [facility] [id number] [place] [address] 25300- 7998 Jan, [facility] [id number] [place] [address] 49270- 1476 Dec, [facility] [id number] [place] [address] 57728- 5861 Nov, [facility] [address] 73994- 7199 Nov, [facility] [id number] [place] [address] 96607- 8096 Oct, [facility] [id number] [place] [address] 85818- 4150 Oct, [facility] [address] [facility] [id number] [place] [address]- 2338 Oct, [facility] [address] [facility] [id number] [place] [address]- 9450 Sep, Allergic rhinitis 477.9 [facility] [address] [facility] [id number] [place] [address]- 1888 Sep, Rhinitis, allergic 477.9 [facility] [address] [facility] [id number] [place] [address]- 8286 Sep, Rhinitis, allergic 477.9 [facility] [address] [facility] [id number] [place] [address]- 8873 Sep, [facility] [address] [facility] [id number] [place] [address]- 2333 August, [facility] [address] [facility] [id number] [place] [address]- 2007 August, [facility] [address] [facility] [id number] [place] [address]- 4531 August, [facility] [address] [facility] [id number] [place] [address]- 1739 28 Jul, 2014 [facility] [address] [facility] [id number] [place] [address]- 0098 14 Jul, 2014 [facility] [place] [facility] [address] [facility] [id number] [place] [address]- 0175 13 Jul, 2014 [facility] [place] [facility] [address] [facility] [id number] [place] [address]- 7753 16 Jun, 2014 [facility] [place] [facility] [address] [facility] [id number] [place] 8106 16 Jun, 2014 [facility] [place] [facility] [address] [facility] [id number] [place] [address]- 3576 Jun, [facility] [place] [facility] [address] [facility] [id number] [place] [address]- 9851 Jun, [facility] [place] [facility] [address] [id number] [place] [address]- 9755 Jun, [facility] [place] [facility] [address] [id number] [place] [address]- 4520 Jun, [facility] [place] [facility] [address] [id number] [place] [address]- 7417 Jun, [facility] [place] [facility] [address] [id number] [place] [address]- 7184 Jun, [facility] [place] [facility] [address] [id number] [place] [address]- 6327 May, [facility] [place] [facility] [address] [id number] [place] [address]- 8617 May, 2014 [facility] [place] [facility] [address] [id number] [place] [address]- 9263 May, [facility] [place] [facility] [address] [id number] [place] [address]- 5259 May, [facility] [place] [facility] [address] [id number] [place] [address]- 8962 Apr, [facility] [place] [facility] [address] [id number] [place] [address]- 2894 Mar, [facility] [place] [facility] [address] [id number] [place] [address]- 9569 Mar, [facility] [place] [facility] [address] [id number] [place] [address]- 7210 Mar, [facility] [place] [facility] [address] [id number] [place] [address]- 2900 Mar, [facility] [place] [facility] [address] [id number] [place] 6507 Mar, [facility] [place] [facility] [address] [id number] [place] 4912 Mar, [facility] [place] [facility] [address] [id number] [place] [address]- 8366 05 Mar, 2014 [facility] [place] [facility] [address] [id number] [place] [address]- 2577 Mar, [facility] [place] [facility] [address] [id number] [place] [address]- 1758 Mar, [facility] [place] [facility] [address] [id number] [place] 6169 Feb, [facility] [place] [facility] [address] [id number] [place] [address]- 4441 Feb, [facility] [place] [facility] [address] [id number] [place] [address]- 5520 Feb, [facility] [place] [facility] [address] [id number] [place] [address]- 9041 Feb, [facility] [place] [facility] [address] [id number] [place] [address]- 5375 Feb, [facility] [place] [facility] [address] [id number] [place] [address]- 1861 Feb, [facility] [place] [facility] [address] [id number] [place] [address]- 8078 Feb, [facility] [place] [facility] [address] [id number] [place] [address]- 1654 Feb, [facility] [place] [facility] [address] [id number] [place] [address]- 6264 Jan, [facility] [place] [facility] [address] [id number] [place] [address]- 6486 Jan, [facility] [place] [facility] [address] [id number] [place] [address]- 8943 16 Jan, 2014 [facility] [place] [facility] [address] [id number] [place] 2506 16 Jan, 2014 [facility] [place] [facility] [address] [id number] [place] [address]- 1886 15 Jan, 2014 [facility] [place] [facility] [address] [id number] [place] [address]- 4989 15 Jan, 2014 [facility] [place] [facility] [address] [id number] [place] [address]- 0302 14 Jan, 2014 [facility] [place] [facility] [address] [id number] [place] [address]- 4820 14 Jan, 2014 [facility] [place] [facility] [address] [id number] [place] [address]- 1265 14 Jan, 2014 [facility] [place] [facility] [address] [id number] [place] [address]- 5585 14 Jan, 2014 [facility] [place] [facility] [address] [id number] [place] [address]- 1637 18 Dec, 2013 [facility] [place] [facility] [address] [id number] [place] [address]- 4662 18 Dec, 2013 [facility] [place] [facility] [address] [id number] [place] [address]- 6935 10 Dec, 2013 [facility] [place] [facility] [address] [id number] [place] [address]- 1619 10 Dec, 2013 [facility] [place] [facility] [address] [id number] [place] [address]- 3529 Nov, [facility] [place] [facility] [address] [id number] [place] [address]- 1322 Nov, [facility] [place] [facility] [address] [id number] [address]- 2155 Nov, [facility] [place] [facility] [address] [id number] [place] [address]- 1009 Nov, [facility] [place] [facility] [address] [id number] [place] [address]- 2309 Nov, [facility] [place] [facility] [address] [id number] [place] [address]- 2321 Oct, [facility] [place] [facility] [address] [id number] [place] [address]- 7345 Oct, [facility] [place] [facility] [address] [id number] [place] [address]- 5050 Oct, [facility] [place] [facility] [address] [id number] [place] [address]- 5380 Oct, [facility] [place] [facility] [address] [id number] [place] [address]- 2348 Sep, [facility] [place] [facility] [address] [id number] [place] [address]- 1896 Sep, [facility] [place] [facility] [address] [id number] [place] [address]- 6286 Sep, [facility] [place] [facility] [address] [id number] [place] [address]- 0822 Sep, [facility] [place] [facility] [address] [id number] [place] [address]- 8850 Sep, [facility] [place] [facility] [address] [id number] [place] [address]- 0731 Sep, [facility] [place] [facility] [address] [id number] [place] [address]- 7076 Sep, [facility] [place] [facility] [address] [id number] [place] [address]- 2950 Sep, [facility] [place] [facility] [address] [id number] [place] [address]- 6245 August, [facility] [place] [facility] [address] [id number] [place] [address]- 6803 August, [facility] [place] [facility] [address] [id number] [place] [address]- 8879 August, [facility] [place] [facility] [address] [id number] [place] [address]- 3621 August, [facility] [place] [facility] [address] [id number] [place] [address]- 4074 August, [facility] [place] [facility] [address] [id number] [place] [address]- 9847 August, [facility] [place] [facility] [address] [id number] [place] [address]- 9458 August, [facility] [place] [facility] [address] [id number] [place] [address]- 0643 Jul, [facility] [place] [facility] [address] [id number] [place] [address]- 6859 Jul, [facility] [place] [facility] [address] [id number] [place] [address]- 9607 Jul, [facility] [place] [facility] [address] [id number] [place] [address]- 9667 Jul, [facility] [place] [facility] [address] [id number] [place] [address]- 9767 Jul, [facility] [place] [facility] [address] [id number] [place] [address]- 8182 Jul, [facility] [place] [facility] [address] [id number] [place] [address]- 8013 Jul, [facility] [place] [facility] [address] [id number] [place] [address]- 8371 Jul, [facility] [place] [facility] [address] [id number] [place] [address]- 1272 Jul, [facility] [place] [facility] [address] [id number] [place] [address]- 6194 Jul, [facility] [place] [facility] [address] [id number] [place] 2316 Jul, [facility] [place] [facility] [address] [id number] [place] [address]- 1179 Jul, [facility] [place] [facility] [address] [id number] [place] [address]- 1179 Jun, [facility] [place] [facility] [address] [id number] [place] [address]- 0734 Jun, [facility] [place] [facility] [address] [id number] [place] [address]- 3369 Jun, [facility] [place] [facility] [address] [id number] [place] [address]- 5767 Jun, [facility] [place] [facility] [address] [id number] [place] [address]- 2727 Jun, [facility] [place] [facility] [address] [id number] [place] [address]- 5563 May, [facility] [place] [facility] [address] [id number] [place] [address]- 4063 May, [facility] [place] [facility] [address] [id number] [place] [address]- 8798 May, [facility] [place] [facility] [address] [id number] [place] [address]- 9172 May, [facility] [place] [facility] [address] [id number] [place] [address]- 6543 May, [facility] [place] [facility] [address] [id number] [place] [address]- 2510 May, [facility] [place] [facility] [address] [facility] [id number] [place] [address]- 5376 May, [facility] [place] [facility] [address] [id number] [place] [address]- 5499 May, [facility] [place] [facility] [address] [id number] [place] [address]- 1713 Mar, [facility] [place] [facility] [address] [id number] [place] [address]- 6094 Mar, [facility] [place] [facility] [address] [facility] [id number] [place] [address]- 1987 Mar, [facility] [place] [facility] [address] [facility] [id number] [place] [address]- 4839 Mar, [facility] [place] [facility] [address] [id number] [place] [address]- 5117 Mar, [facility] [place] [facility] [address] [id number] [place] [address]- 9035 Mar, [facility] [place] [facility] [address] [id number] [place] [address]- 0893 Feb, [facility] [place] [facility] [address] [id number] [place] [address]- 1278 Feb, [facility] [place] [facility] [address] [id number] [place] [address]- 4904 Jan, [facility] [place] [facility] [address] [id number] [place] [address]- 7633 Jan, [facility] [place] [facility] [address] [id number] [place] [address]- 9406 Jan, [facility] [place] [facility] [address] [id number] [place] [address]- 8411 Jan, [facility] [place] [facility] [address] [id number] [place] [address]- 0104 Jan, [facility] [place] [facility] [address] [id number] [place] [address]- 9560 Jan, [facility] [place] [facility] [address] [id number] [place] [address]- 3312 Jan, [facility] [place] [facility] [address] [id number] [place] [address]- 1632 Jan, [facility] [place] [facility] [address] [id number] [place] [address]- 2841 08 Jan, 2013 [facility] [place] [facility] [address] [id number] [place] [address]- 4957 Jan, [facility] [place] [facility] [address] [id number] [place] [address]- 2546 16 Dec, 2012 [facility] [place] [facility] [address] [id number] [place] [address]- 5340 Nov, [facility] [address] [id number] [place] [address]- 4022 Nov, [facility] [address] [id number] [place] [address]- 4173 Nov, [facility] [address] [facility] [id number] [place] [address]- 7451 Oct, [facility] [address] [id number] [place] [address]- 0047 Oct, [facility] [address] [id number] [place] [address]- 5030 August, [facility] [address] [facility] [id number] [place] [address]- 0480 Apr, [facility] [address] [facility] [id number] [place] [address]- 5017 Apr, [facility] [address] [facility] [id number], [place] [address]- 7263 Feb, [facility] [address] [facility] [id number] [place] [address]- 2767 Feb, [facility] [address] [facility] [id number], [place] [address]- 2599 Dec, [facility] [address] [facility] [id number], [place] [address]- 4563 Dec, [facility] [address] [facility] [id number], [place] [address]- 6536 Oct, [facility] [address] [facility] [id number], [place] [address]- 3886 Oct, [facility] [address] [facility] [id number], [place] [address]- 0495 Oct, [facility] [address] [facility] [id number], [place] [address]- 2788 Jul, IMMUNIZATIONS No Known Immunizations SOCIAL HISTORY Never Assessed REASON FOR VISIT f/uRadha CHO PLAN OF CARE Activity Details Follow Up 2 Months Reason: VITAL SIGNS Height 57 in 2017-11-03 Weight 223.7 lbs 2017-11-03 Heart Rate 104 bpm 2017-11-03 Respiratory Rate 22 2017-11-03 BMI 48.4 kg/m2 2017-11-03 Blood pressure systolic 144 mmHg 2017-11-03 Blood pressure diastolic 90 mmHg 2017-11-03 MEDICATIONS Medication Instructions Dosage Frequency Start Date End Date Duration Status Incontinence Supply Disposable SUPPLIES as directed Feb, 30 days Not-Taking Pravastatin Sodium 20 MG Orally Once a day 1 tablet 24h Active Ibuprofen 800MG TAKE ONE TABLET BY MOUTH THREE TIMES DAILY NEEDED Active Tizanidine HCl 4 MG Orally 3 times a day 1 1/2 tablets 8h Active Plaquenil 200 mg Orally Once a day 1 tablet with food or milk 24h Active Cetirizine HCl 10 mg Orally Once a day 1 tablet 24h Jun, Sep, 90 days Active Loxapine Succinate 25 MG Orally 4 times a day PRN 1 capsule Active Ambien 5 mg Orally Once a day 1 tablet at bedtime 24h Oct, 28 days Active Zoloft 100 MG Orally Once a day 2 tablet 24h Mar, Active Restasis 0.05 % instill 1 drop into affected eye(s) by ophthalmic route 2 times per day Oct, Active True Metrix Blood Glucose Test - subcutaneously 2 times a day as directed ( pt tests twice daily) 12h Oct, 30 days Active HydrOXYzine HCl 50 mg TAKE ONE TO TWO TABLETS BY MOUTH EVERY 8 HOURS NEEDED FOR 30 DAYS Active Breo Ellipta 100-25 mcg/inh Inhalation Once a day INHALE ONE PUFF BY MOUTH ONCE DAILY AT THE SAME TIME EACH DAY 24h Oct, 12 months Active Zoloft 50 MG Orally Once a day 1 tablet 24h Not-Taking Omeprazole 40 MG Orally Once a day 1 capsule 24h Active Norvasc 10 mg Orally Once a day 1 tablet 24h Active Myrbetriq 50 MG Orally Once a day 1 tablet 24h Active Fluticasone Propionate 50 MCG/ACT Nasally Once a day 1 spray in each nostril 24h Jun, 30 day(s) Active Estradiol 1 MG TAKE 1 TABLET BY MOUTH ONCE DAILY 30 Active Januvia 100MG Orally Once a day 1 tablet 24h 30 days Active Ventolin HFA 108 (90 Base) MCG/ACT Inhalation every 4 hrs PRN 2 puffs as needed Feb, 12 months Active Neurontin 600 mg Orally 2 times a day 1 tablet 12h 30 days Active Singulair 10 MG Orally Once a day 1 tablet in the evening 24h Jan, 30 day(s) Active Tramadol HCl 50 mg Orally 2 times a day 1 tablet as needed 12h 28 days Active Sumatriptan Succinate 50 MG TAKE 1 TABLET BY MOUTH NEEDED FOR MIGRAINE- MAY REPEAT IN 2 HOURS IF NEEDED (TWICE A DAY) 10 Active Metformin HCl 1000MG Orally 2 times a day TAKE ONE TABLET BY MOUTH TWICE DAILY 12h 90 days Active Spironolactone 50MG Orally Once a day 1 tablet 24h Active Levothyroxine Sodium 175 MCG Orally Once a day 1 tablet 24h 30 Active Lisinopril 2.5 MG Orally Once a day 1 tablet 24h Nov, Active True Metrix Meter w/Device as directed Oct, Active Gabapentin 600 MG Orally Three times a day 1 tablet 8h Active Invega Sustenna 234 MG/1.5ML Intramuscular Once a month, on the 10th of every month 1.5 ml Active RESULTS No Results PROCEDURES Procedure Date Ordered Result Body Site [facility] VISIT ESTABLISHED PATIENT November 03, 2017 INSTRUCTIONS MEDICATIONS ADMINISTERED No Known [...] for psychosis/mental illness , last one in Counts include 234 beds at the [facility] 4 years ago
[2018-09-02] MEDS ORDERED: HYDROmorphone 2 MG/ML VIAL (DILAUDID) ONE (13:30)
[2018-09-02] MEDS ORDERED: KETOROLAC 30 MG/ML VIAL ONE (13:30)
--- OUTSIDE RECORDS SUMMARY | 2018-09-02 13:30 | XMS REPORT ---
Author Author ALAYNA KO [facility] Address [address] [place] [address] Care Team Providers Care Manager [employer] Name Role Phone ALAYNA KO Unavailable PROBLEMS Type Condition ICD9-CM Code ANX29-IH Code Onset Dates Condition Status SNOMED Code Problem OAB (overactive bladder) N32.81 Active 309208978 Problem Depression with anxiety F41.8 Active 151640433 Problem Other seasonal allergic rhinitis J30.2 Active 211899395 Problem Chronic obstructive pulmonary disease, unspecified COPD type J44.9 Active 32706515 Problem Tobacco abuse Z72.0 Active 429888716 Problem Morbid obesity due to excess calories E66.01 Active 045501856 Problem Dyslipidemia E78.5 Active 883932371 Problem Hypothyroidism (acquired) E03.9 Active 841947079 Problem Essential hypertension I10 Active 03484464 Problem Diabetic polyneuropathy associated with type 2 diabetes mellitus E11.42 Active 445586110 Problem Type 2 diabetes mellitus with diabetic neuropathic arthropathy, 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 Active 696709206 Problem Type 2 diabetes mellitus without complication, without long-term current use of insulin E11.9 Active 475174479 Problem Paranoid schizophrenia F20.0 Active 44102322 Problem Chronic pain syndrome G89.4 Active 063332796 Problem Migraine without aura and without status migrainosus, not intractable G43.009 Active 520741056 Problem Gastroesophageal reflux disease, esophagitis presence not specified K21.9 Active 759898246 Problem Seasonal allergic rhinitis due to pollen J30.1 Active 06749414 Problem COPD exacerbation J44.1 Active 044782682 Problem Seasonal allergic rhinitis due to other allergic trigger J30.89 Active 481783932 Problem Schizoaffective disorder, depressive type F25.1 Active 60935637 Problem History of lupus Z87.39 Active 906844389 Problem Gastroesophageal reflux disease without esophagitis K21.9 Active 363181332 Problem Menopausal syndrome (hot flashes) N95.1 Active 018466435 Problem Other allergic rhinitis J30.89 Active 974604238 Problem Primary insomnia F51.01 Active 7308899 Problem DM neuro manif type II E11.49 Active 45204337 ALLERGIES No Information ENCOUNTERS Encounter Location Date Diagnosis [facility] [id number] [place] [address] 45380- 9035 Jan, [place] [address] 58421- 6205 Jan, [facility] [address] 60855- 8475 Jan, [place] [address] 32699- 8263 Dec, [place] [id number] [place] [address] 42933- 0932 Dec, Schizoaffective disorder, depressive type F25.1 [place] [id number] [place] [address] 30417- 0647 Dec, [facility] [id number] [place] [address] 50851- 1350 Nov, Schizoaffective disorder, depressive type F25.1 and BMI 45.0 -49.9, adult Z68.42 [place] [id number] [place] [address] 94578- 5416 Nov, [place] [id number] [place] [address] 82253- 8124 Nov, [place] [id number] [place] [address] 78248- 6098 Nov, Schizoaffective disorder, depressive type F25.1 [place] [id number] [place] [address] 50967- 2595 Nov, Well woman exam Z01.419 ; BMI 45.0-49.9, adult Z68.42 ; Screening breast examination Z12.31 and Dietary counseling and surveillance Z71.3 [place] [address] [address] 9848 Nov, Paranoid schizophrenia F20.0 [place] [id number] [place] [address] 82117- 9895 Nov, Gastroesophageal reflux disease, esophagitis presence not specified K21.9 [place] [address] [place] [address] 83521- 0095 Oct, Paranoid schizophrenia F20.0 [place] [id number] [address] Oct Chronic pain syndrome G89.4 and Schizoaffective disorder, depressive type F25.1 [place] [id number] [place] [address] 07618- 0242 Oct, Chronic pain syndrome G89.4 and Schizoaffective disorder, depressive type F25.1 [place] [id number] [place] [address] 65563- 8125 16 Oct, 2017 Type 2 diabetes mellitus without complication, without long- term current use of insulin E11.9 [place] [id number] [place] [address] 14515- 7354 12 Oct, 2017 Essential hypertension I10 and DM neuro manif type II E11.49 [place] [id number] [place] [address] 40145- 2108 Oct, [place] [id number] [place] [address] 54522- 0812 Oct, Schizoaffective disorder, depressive type F25.1 and BMI 45.0 -49.9, adult Z68.42 [place] [id number] [place] [address] 66847- 1191 Oct, [place] [id number] [place] [address] 01933- 8123 Oct, Paranoid schizophrenia F20.0 [place] [id number] [place] [address] 25663- 9952 Oct, Type 2 diabetes mellitus with diabetic neuropathic arthropathy, 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 ; Essential hypertension I10 ; Hypothyroidism (acquired) E03.9 ; Chronic obstructive pulmonary disease, unspecified COPD type J44.9 and Diabetic polyneuropathy associated with type 2 diabetes mellitus E11.42 [facility] [id number] [place] [address] 41782- 0704 Sep, Paranoid schizophrenia F20.0 [facility] [id number] [place] [address] 92944- 1378 Sep, Paranoid schizophrenia F20.0 and BMI 45.0-49.9, adult Z68.42 [facility] [id number] [place] [address] 30948- 6830 Sep, Schizoaffective disorder, depressive type F25.1 [facility] [id number] [place] [address] 32162- 5612 Sep, [facility] [id number] [place] [address] 42278- 6198 Sep, Paranoid schizophrenia F20.0 [facility] [id number] [place] [address] 49069- 2308 Sep, [facility] [id number] [place] [address] 14137- 0010 Sep, Hypothyroidism (acquired) E03.9 [facility] [id number] [place] [address] 08087- 6106 Sep, [facility] [id number] [place] [address] 76033- 6551 August, Schizoaffective disorder, depressive type F25.1 [facility] [id number] [place] [address] 39678- 2058 August, [facility] [id number] [place] [address] 23814- 0327 August, [facility] [id number] [place] [address] 91620- 0226 August, [place] [address] 62504- 5224 August, Paranoid schizophrenia F20.0 [place] [address] 35367- 7799 August, History of lupus Z87.39 and Chronic pain syndrome G89.4 [place] [address] 72097- 8079 August, [facility] [address] 03653 -7293 August, Seasonal allergic rhinitis, unspecified trigger J30.2 and BMI 45.0-49.9, adult Z68.42 [place] [address] 92109- 5474 Jul, Schizoaffective disorder, depressive type F25.1 [place] [address] 71587- 4830 Jul, [place] [address] 96575- 7041 Jul, Hypothyroidism (acquired) E03.9 [place] [address] 83402- 5093 Jul, Chronic obstructive pulmonary disease, unspecified COPD type J44.9 and Type 2 diabetes mellitus without complication, without long-term current use of insulin E11.9 [place] [id number] [place] [address] 87540- 7471 Jul, Paranoid schizophrenia F20.0 [place] [address] 48907- 8367 Jun, Hypothyroidism (acquired) E03.9 and Seasonal allergic rhinitis due to pollen J30.1 [facility] [address] 20550 -5601 Jun, Shortness of breath at rest R06.02 ; COPD exacerbation J44.1 and BMI 45.0-49.9, adult Z68.42 [facility] [id number] [place] [address] 52145- 7125 Jun, [facility] [id number] [place] [address] 01063- 5610 Jun, Paranoid schizophrenia F20.0 ; Depression with anxiety F41.8 and BMI 45.0-49.9, adult Z68.42 [facility] [id number] [place] [address] 92216- 7375 Jun, Schizoaffective disorder, depressive type F25.1 [facility] [id number] [place] [address] [id number] Jun, Dental caries K02.9 [facility] [address] 03884- 4583 Jun, Paranoid schizophrenia F20.0 [facility] [id number] [place] [address] 24701- 0135 May, Migraine without aura and without status migrainosus, not intractable G43.009 ; DM neuro manif type II E11.49 and Type 2 diabetes mellitus without complication, without long-term current use of insulin E11.9 [facility] [id number] [place] [address] 29667- 5500 May, Migraine without aura and without status migrainosus, not intractable G43.009 [facility] [address] [place] [address] 91189- 4130 May, Depression with anxiety F41.8 [facility] [id number] [place] [address] [id number] May, [facility] [id number] [place] [address] 09674- 7303 May, [facility] [address] 76022- 2617 May, [place] [id number] [place] [address] 93172- 5755 May, Hypothyroidism (acquired) E03.9 [place] [id number] [place] [address] 59970- 5311 May, Paranoid schizophrenia F20.0 [place] [address] 66555- 2528 May, Type 2 diabetes mellitus without complication, [...] N32.81 and Controlled substance agreement signed Z79.899 [place] [address] 81709- 1980 May, Controlled substance agreement signed Z79.899 [place] [id number] [place] [address] 54554- 2769 Apr, [facility] [id number] [place] [address] [id number] Apr, Dental examination Z01.20 [place] [id number] [place] [address] 13565- 6156 Apr, Paranoid schizophrenia F20.0 [place] [address] 48558- 7237 Apr, Hypertension, unspecified type I10 [place] [address] 52702- 1698 Apr, Paranoid schizophrenia F20.0 [facility] [id number] [place] [address] 81628- 1491 Apr, [facility] [address] 71819- 2098 Apr, Tobacco abuse Z72.0 [facility] [address] 96624- 4968 Apr, [facility] [address] 36067- 5498 Mar, [facility] [address] 48630- 8440 Mar, Paranoid schizophrenia F20.0 and BMI 45.0-49.9, adult Z68.42 [place] [address] 08045- 6851 Mar, Schizoaffective disorder, depressive type F25.1 [place] [id number] [place] [address] 85449- 2902 Mar, [place] [address] 99542- 5997 Mar, Hypothyroidism, unspecified type E03.9 [facility] [id number] [place] [address] 56224- 8171 Mar, Schizoaffective disorder, depressive type F25.1 [facility] [id number] [place] [address] 00647 -1220 Feb, Gastroenteritis K52.9 and BMI 45.0-49.9, adult Z68.42 [facility] [address] 56578- 2686 Feb, [facility] [id number] [place] [address] 29634- 0479 Feb, [facility] [address] 55189- 2405 Feb, [place] [address] 75121- 6687 Feb, [address] 63341- 0605 Feb, Paranoid schizophrenia F20.[address] 36662- 6154 Feb, Gastroesophageal reflux disease without esophagitis K21.9 ; Other seasonal allergic rhinitis J30.2 ; Other allergic rhinitis J30.89 ; Tobacco abuse Z72.0 and BMI 40.0-44.9, adult Z68.[address] 29832- 7385 Feb, Onychomycosis B35.1 ; Callus of foot L84 and DM neuro manif type II E11.[address] 32563- 7190 Jan, Chronic allergic rhinitis J30.[address] 96328- 1300 Jan, [address] 49037- 1660 Jan, Schizoaffective disorder, depressive type F25.[address] 09764- 5189 Jan, [facility] [address] [place] [address] 13845 -9032 Jan, Sore throat J02.9 and Seasonal allergic rhinitis due to other allergic trigger J30.[address] 41421- 1313 Jan, [address] 68278- 0171 Jan, [facility] [address] 83557 -3221 Jan, Chronic allergic rhinitis J30.9 [facility] [id number] [place] [address] 59421- 7124 Dec, Paranoid schizophrenia F20.0 ; Primary insomnia F51.01 and Schizoaffective disorder, depressive type F25.1 [facility] [id number] [place] [address] 76236- 4038 Dec, Chronic pain syndrome G89.4 ; Cervicalgia of occipito- atlanto-axial region M54.2 ; Menopausal syndrome (hot flashes) N95.1 and Encounter for immunization Z23 [facility] [address] 63717- 2452 Dec, [facility] [id number] [place] [address] 20387- 7573 Dec, [place] [address] 11997- 7241 Dec, Paranoid schizophrenia F20.0 [facility] [id number] [place] [address] 42921- 0924 Dec, Schizoaffective disorder, depressive type F25.1 [facility] [id number] [place] [address] 85387- 2897 Nov, Hypothyroidism, unspecified type E03.9 [facility] [id number] [place] [address] 40452 -0746 Nov, Acute seasonal allergic rhinitis due to other allergen J30.89 [facility] [id number] [place] [address] 36704- 8857 Nov, [facility] [address] 33673- 9665 Nov, Hypothyroidism, unspecified type E03.9 and Other elevated white blood cell (WBC) count D72.828 [facility] [id number] [place] [address] 59907- 6574 Nov, Schizoaffective disorder, depressive type F25.1 [place] [address] [address]- 1785 Nov, Paranoid schizophrenia F20.0 [place] [address] [place] [address] 48381- 0112 Nov, Type 2 diabetes mellitus without complication, without long- term current use of insulin E11.9 ; Morbid obesity due to excess calories E66.01 and Chronic pain syndrome G89.4 [place] [address] [place] [address] 19383- 5567 Oct, Paranoid schizophrenia F20.0 [place] [id number] [place] [address] 12882- 0071 Oct, [place] [id number] [place] [address] 15346- 3515 Oct, Schizoaffective disorder, depressive type F25.1 [place] [address] [address]- 0868 Oct, Hypothyroidism, unspecified type E03.9 and Other elevated white blood cell (WBC) count D72.828 [place] [address] [place] [address] 16293- 1916 Oct, Morbid obesity due to excess calories E66.01 ; Chronic obstructive pulmonary disease, unspecified COPD type J44.9 ; History of lupus Z87.39 ; Hypothyroidism, unspecified type E03.9 ; Gastroesophageal reflux disease without esophagitis K21.9 ; Primary insomnia F51.01 and Chronic pain syndrome G89.4 [place] [address] [address]- 4613 Sep, [place] [id number] [place] [address] 60248- 9998 Sep, [place] [address] [address]- 3853 Sep, [place] [address] [address]- 6937 Sep, Paranoid schizophrenia F20.0 [facility] [id number] [place] [address] 52876- 1759 Sep, [facility] [id number] [place] [address] 16432- 0406 Sep, Paranoid schizophrenia F20.0 [facility] [id number] [place] [address] 06263- 3784 Sep, [facility] [id number] [place] [address] 58167- 7042 August, Paranoid schizophrenia F20.0 [facility] [id number] [place] [address] 77318- 2350 Jul, [facility] [id number] [place] [address] 22624- 5880 Jul, Type 2 diabetes mellitus without complication, without long- term current use of insulin E11.9 ; Morbid obesity due to excess calories E66.01 ; Depression with anxiety F41.8 ; Hypothyroidism, unspecified type E03.9 ; Seasonal allergic rhinitis due to other allergic trigger J30.89 ; Pain, dental K08.89 and Gastroesophageal reflux disease without esophagitis K21.9 [facility] [address] [place] [address] [id number] Jul, Dental examination Z01.20 [facility] [address] [place] [address] 84263- 6780 Jul, Paranoid schizophrenia F20.0 [facility] [address] [place] [address] 78271- 3474 13 Jun, 2016 Paranoid schizophrenia F20.0 and Depression with anxiety F41.8 [facility] [address] [place] [address] 20218- 1067 10 Jun, 2016 Paranoid schizophrenia F20.0 and Depression with anxiety F41.8 [facility] [id number] [place] [address] 75778- 5029 Jun, [place] [id number] [place] [address] 08143- 1441 Jun, [facility] [place] [id number] [place] [address] 01736 -4005 Jun, Seasonal allergic rhinitis due to other allergic trigger J30.89 [facility] [address] 62632 -7499 May, Sore throat J02.9 ; Other viral agents as the cause of diseases classified elsewhere B97.89 and Acute upper respiratory infection, unspecified J06.9 [place] [address] 31126- 2913 May, Paranoid schizophrenia F20.0 and Depression with anxiety F41.[address] 73448- 8892 Apr, Other seasonal allergic rhinitis J30.2 [place] [id number] [place] [address] 26496- 3261 Apr, Paranoid schizophrenia F20.0 and Depression with anxiety F41.8 [facility] [place] [id number] [place] [address] 54457 -1937 Apr, Bronchitis J40 and Sore throat J02.9 [place] [id number] [place] [address] 64754- 5351 Apr, Type 2 diabetes mellitus without complication, without long- term current use of insulin E11.9 [facility] [id number] [place] [address] 95858 -9450 Apr, Bronchitis J40 [place] [id number] [place] [address] 70180- 8270 Apr, [place] [id number] [place] [address] 11190- 5884 Apr, [place] [id number] [place] [address] 31687- 3924 Mar, Type 2 diabetes mellitus without complication, [...] R60.9 and Other seasonal allergic rhinitis J30.2 [place] [id number] [place] [address] 62580- 0090 Mar, Paranoid schizophrenia F20.0 and Depression with anxiety F41.8 [place] [id number] [place] [address] 84078- 5959 Feb, [place] [address] 09529- 6181 Feb, [place] [id number] [place] [address] 79679- 3177 Feb, [place] [address] 00351- 3670 Feb, [place] [id number] [place] [address] 41037- 0796 Feb, Type 2 diabetes mellitus without complication, without long- term current use of insulin E11.9 ; ARIAS on CPAP G47.33 and Preoperative evaluation to rule out surgical contraindication Z01.818 [place] [id number] [place] [address] 41576- 2343 Feb, Paranoid schizophrenia F20.0 and Depression with anxiety F41.8 [place] [id number] [place] [address] 45032- 3824 Jan, [place] [address] [address] [id number] [place] [address]- 7237 Jan, Paranoid schizophrenia F20.0 and Depression with anxiety F41.8 [facility] [address] [facility] [place] [id number] [place] [address] 17 Jan, 2016 [facility] [address] [facility] [place] [id number] [place] [address] 14 Jan, 2016 Muscle strain T14.8 [facility] [address] [facility] [place] [id number] [place] [address] Jan, Paranoid schizophrenia F20.0 [facility] [address] [facility] [place] [id number] [place] [address] Jan, [facility] [address] [facility] [place] [id number] [place] [address] Jan, Paranoid schizophrenia F20.0 and Depression with anxiety F41.8 [facility] [address] [id number] [place] [address] Jan, [facility] [address] [facility] [place] [id number] [address] Jan, [facility] [place] [facility] [address] [facility] [place] [id number] [place] [address] 28 Dec, 2015 [facility] [address] [facility] [place] [id number] [place] [address] 23 Dec, 2015 Paranoid schizophrenia F20.0 [facility] [address] [facility] [place] [id number][place] [address] 16 Dec, 2015 Paranoid schizophrenia F20.0 and Depression with anxiety F41.8 [facility] [address] [facility] [place] [id number] [address] Nov, [facility] [address] [facility] [place] [id number] [place] [address] 8727 24 Nov, 2015 Paranoid schizophrenia F20.0 [facility] [address] [facility] [place] [id number] [place] [address] 4226 10 Nov, 2015 Paranoid schizophrenia F20.0 and Depression with anxiety F41.8 [facility] [id number] [place] [address] 28261- 9143 Nov, Type 2 diabetes mellitus without complication, without long- term current use of insulin E11.9 ; Paranoid schizophrenia F20.0 ; Chronic obstructive pulmonary disease, unspecified COPD type J44.9 ; Morbid obesity due to excess calories E66.01 and Parkinsonian tremor G20 [facility] [id number] [place] [address] 64602- 1723 Nov, [facility] [id number] [place] [address] 47539- 9289 Oct, Paranoid schizophrenia F20.0 [facility] [id number] [place] [address] 92591- 0574 Oct, Paranoid schizophrenia F20.0 [facility] [id number] [place] [address] 42350- 9870 Oct, Paranoid schizophrenia F20.0 and Depression with anxiety F41.8 [facility] [id number] [place] [address] 66349- 4980 Oct, [facility] [id number] [place] [address] 72440- 1179 Oct, Paranoid schizophrenia F20.0 and Depression with anxiety F41.8 [facility] [id number] [place] [address] 39003- 9331 Oct, Nasal sore J34.89 [facility] [id number] [place] [address] 34893- 9682 Oct, Type 2 diabetes mellitus without complication, without long- term current use of insulin E11.9 ; Depression with anxiety F41.8 ; Hypothyroidism, unspecified type E03.9 and History of lupus Z87.39 [facility] [id number] [place] [address] 84011- 5957 Oct, [facility] [id number] [place] [address] 00548- 7755 01 Raji, 2016 Type 2 diabetes mellitus without complication, [...] edema R60.9 and History of lupus Z87.39 [facility] [id number] [place] [address] 40260- 5516 Feb, [facility] [id number] [place] [address] 06408- 6106 Jan, [facility] [id number] [place] [address] 43857- 1750 Jan, [facility] [id number] [place] [address] 41921- 6044 Jan, [facility] [id number] [place] [address] [id number]- 5062 Dec, [facility] [id number] [place] [address] 65349- 4846 Nov, [facility] [address] [id number] [address] 6256 Nov, [facility] [id number] [place] [address] 39761- 5356 Oct, [facility] [id number] [place] [address] 63911- 6711 Oct, [facility] [id number] [place] [address] 92711- 6896 Oct, [facility] [id number] [place] [address] 21921- 5114 Sep, Allergic rhinitis 477.9 [facility] [address] [place] [address] 5047 11 Sep, 2014 Rhinitis, allergic 477.9 [facility] [address] [facility] [place] [id number], [place] [address] 3400 10 Sep, 2014 Rhinitis, allergic 477.9 [facility] [address] [facility] [place] [id number] [place] [address]- 1504 09 Sep, 2014 [facility] [place] [facility] [address] [facility] [place] [id number] [place] [address]- 1384 August, [facility] [place] [facility] [address] [facility] [place] [id number] [place] [address]- 0216 August, [facility] [place] [facility] [address] [facility] [place] [id number] [place] [address]- 5674 August, [facility] [place] [facility] [address] [id number] [place] [address]- 0404 28 Jul, 2014 [facility] [address] [id number] [address]- 6457 14 Jul, 2014 [facility] [place] [facility] [address] [id number] [place] [address]- 4999 13 Jul, 2014 [facility] [place] [facility] [address] [id number] [address]- 5312 16 Jun, 2014 [facility] [place] [facility] [address] [id number] [address]- 2446 16 Jun, 2014 [facility] [place] [facility] [address] [facility] [place] [id number], [place] [address]- 8047 12 Jun, 2014 [facility] [place] [facility] [address] [facility] [place] [id number], [place] [address]- 7746 Jun, [facility] [place] [facility] [address] [facility] [place] [id number], [place] [address]- 2011 Jun, [facility] [place] [facility] [address] [facility] [place] [id number], [place] [address]- 5937 Jun, [facility] [place] [facility] [address] [facility] [place] [id number], [place] [address]- 0925 Jun, 2014 [facility] [place] [facility] [address] [id number] [place] [address]- 0496 Jun, 2014 [facility] [place] [facility] [address] [id number] [place] [address]- 5066 May, 2014 [facility] [place] [facility] [address] [id number] [place] [address]- 2096 May, 2014 [facility] [place] [facility] [address] [id number] [place] [address]- 4059 May, 2014 [facility] [place] [facility] [address] [id number] [place] [address]- 8566 May, 2014 [facility] [place] [facility] [address] [id number] [place] [address]- 2644 Apr, [facility] [place] [facility] [address] [id number] [place] [address]- 7610 Mar, [facility] [place] [facility] [address] [id number] [place] [address]- 5380 Mar, [facility] [place] [facility] [address] [id number] [place] [address]- 3076 Mar, [facility] [place] [facility] [address] [id number] [place] [address]- 2596 Mar, [facility] [place] [facility] [address] [id number] [place] [address]- 4316 Mar, [facility] [place] [facility] [address] [id number] [place] [address]- 2546 Mar, [facility] [place] [facility] [address] [id number] [place] [address]- 8017 Mar, [facility] [place] [facility] [address] [id number] [place] [address]- 5166 Mar, [facility] [place] [facility] [address] [id number] [place] [address]- 9723 Mar, [facility] [place] [facility] [address] [id number] [place] [address]- 2277 Feb, [facility] [place] [facility] [address] [id number] [place] [address]- 4128 Feb, [facility] [place] [facility] [address] [id number] [place] [address]- 1633 Feb, [facility] [place] [facility] [address] [id number] [place] [address]- 7277 Feb, [facility] [place] [facility] [address] [id number] [place] [address]- 8500 Feb, [facility] [place] [facility] [address] [id number] [place] [address]- 2934 Feb, [facility] [place] [facility] [address] [id number] [place] [address]- 8650 Feb, [facility] [place] [facility] [address] [id number] [place] [address]- 5957 Feb, [facility] [place] [facility] [address] [id number] [place] [address]- 5934 Jan, [facility] [place] [facility] [address] [id number] [place] [address]- 6264 23 Jan, 2014 [facility] [place] [facility] [address] [id number] [place] [address]- 4993 16 Jan, 2014 [facility] [place] [facility] [address] [id number] [place] [address]- 4640 16 Jan, 2014 [facility] [place] [facility] [address] [id number] [place] [address]- 3306 15 Jan, 2014 [facility] [place] [facility] [address] [id number] [place] [address]- 3258 15 Jan, 2014 [facility] [place] [facility] [address] [id number] [place] [address]- 4552 14 Jan, 2014 [facility] [place] [facility] [address] [id number] [place] [address]- 1452 14 Jan, 2014 [facility] [place] [facility] [address] [id number] [place] [address]- 9053 14 Jan, 2014 [facility] [place] [facility] [address] [id number] [place] [address]- 9933 14 Jan, 2014 [facility] [place] [facility] [address] [id number] [place] [address]- 2830 18 Dec, 2013 [facility] [place] [facility] [address] [id number] [place] [address]- 0468 18 Dec, 2013 [facility] [place] [facility] [address] [id number] [place] [address]- 6521 Dec, [facility] [place] [facility] [address] [id number] [place] [address]- 6475 Dec, [facility] [place] [facility] [address] [id number] [place] [address]- 6681 Nov, [facility] [place] [facility] [address] [id number] [place] [address]- 6694 Nov, [facility] [place] [facility] [address] [id number] [place] [address]- 0433 Nov, [facility] [place] [facility] [address] [id number] [place] [address]- 2872 Nov, [facility] [place] [facility] [address] [id number] [place] [address]- 5795 Nov, [facility] [place] [facility] [address] [id number] [place] [address]- 9420 Oct, [facility] [place] [facility] [address] [id number] [place] [address]- 3660 Oct, [facility] [place] [facility] [address] [id number] [place] [address]- 8576 Oct, [facility] [place] [facility] [address] [id number] [place] [address]- 4211 Oct, [facility] [place] [facility] [address] [id number] [place] [address]- 3303 Sep, [facility] [address] [id number] [place] [address]- 5922 Sep, [facility] [place] [facility] [address] [id number] [place] [address]- 3486 Sep, [facility] [place] [facility] [address] [id number] [place] [address]- 4289 Sep, [facility] [place] [facility] [address] [id number] [place] [address]- 5579 Sep, [facility] [place] [facility] [address] [id number] [place] [address]- 0589 Sep, [facility] [place] [facility] [address] [id number] [place] [address]- 4529 Sep, [facility] [place] [facility] [address] [id number] [place] [address]- 0458 Sep, [facility] [address] [id number] [place] [address]- 5197 August, [facility] [place] [facility] [address] [id number] [place] [address]- 9667 August, [facility] [address] [id number] [place] [address]- 1659 August, [facility] [place] [facility] [address] [id number] [place] [address]- 8909 August, [facility] [place] [facility] [address] [id number] [place] [address]- 7563 August, [facility] [place] [facility] [address] [id number] [place] [address]- 9421 August, [facility] [place] [facility] [address] [id number] [place] [address]- 2773 August, [facility] [place] [facility] [address] [id number] [place] [address]- 6897 Jul, [facility] [place] [facility] [address] [id number] [place] [address]- 9110 Jul, [facility] [place] [facility] [address] [id number] [place] [address]- 9434 Jul, [facility] [place] [facility] [address] [id number] [place] [address]- 3893 Jul, [facility] [place] [facility] [address] [id number] [place] [address]- 6345 Jul, [facility] [place] [facility] [address] [id number] [place] [address]- 6932 Jul, [facility] [place] [facility] [address] [id number] [place] [address]- 1851 Jul, [facility] [place] [facility] [address] [id number] [place] [address]- 0143 Jul, [facility] [place] [facility] [address] [id number] [place] [address]- 9749 Jul, [facility] [place] [facility] [address] [id number] [place] [address]- 4893 Jul, [facility] [place] [facility] [address] [id number] [place] [address]- 5970 Jul, [facility] [place] [facility] [address] [id number] [place] [address]- 8365 Jul, [facility] [place] [facility] [address] [id number] [place] [address]- 6550 Jun, [facility] [place] [facility] [address] [id number] [place] [address]- 5165 Jun, [facility] [place] [facility] [address] [id number] [place] [address]- 2011 Jun, [facility] [place] [facility] [address] [id number] [place] [address]- 5202 Jun, [facility] [place] [facility] [address] [id number] [place] [address]- 2751 Jun, [facility] [place] [facility] [address] [id number] [place] [address]- 0544 May, [facility] [place] [facility] [address] [id number] [place] 9086 May, 2013 [facility] [place] [facility] [address] [facility] [place] [id number] [place] [address]- 0456 May, [facility] [place] [facility] [address] [id number] [place] [address]- 3043 May, [facility] [place] [facility] [address] [id number] [place] [address]- 6327 May, [facility] [place] [facility] [address] [facility] [place] [id number] [place] [address]- 3676 May, [facility] [place] [facility] [address] [id number] [place] [address]- 2512 May, [facility] [place] [facility] [address] [facility] [place] [id number] [place] [address]- 6430 May, [facility] [place] [facility] [address] [id number] [place] [address]- 3452 Mar, [facility] [place] [facility] [address] [facility] [place] [id number] [place] [address]- 0923 Mar, [facility] [place] [facility] [address] [facility] [place] [id number] [place] [address]- 9328 Mar, [facility] [place] [facility] [address] [facility] [place] [id number] [place] [address]- 8905 Mar, [facility] [place] [facility] [address] [facility] [place] [id number] [place] [address]- 5840 Mar, [facility] [place] [facility] [address] [facility] [place] [id number] [place]- 7967 Mar, [facility] [place] [facility] [address] [facility] [place] [id number] [place] 4463 Feb, [facility] [place] [facility] [address] [id number] [place] [address]- 2688 15 Feb, 2013 [facility] [place] [facility] [address] [id number] [place] [address]- 8118 Jan, [facility] [place] [facility] [address] [id number] [place] [address]- 6374 Jan, [facility] [place] [facility] [address] [id number] [place] [address]- 4147 Jan, [facility] [place] [facility] [address] [id number] [place] [address]- 6395 Jan, [facility] [place] [facility] [address] [id number] [place] [address]- 2106 Jan, [facility] [place] [facility] [address] [id number] [place] [address]- 4845 Jan, [facility] [place] [facility] [address] [id number], [place] [address]- 5251 Jan, [facility] [place] [facility] [address] [id number] [place] [address]- 5504 Jan, [facility] [place] [facility] [address] [id number][place] [address]- 5580 Jan, [facility] [place] [facility] [address] [id number], [place] [address]- 5278 Jan, [facility] [place] [facility] [address] [id number], [place] [address]- 0075 Dec, [facility] [place] [facility] [address] [id number][place] [address]- 8934 Nov, [facility] [place] [facility] [address] [id number][place] [address]- 2516 Nov, [facility] [place] [facility] [address] [id number], [place] [address]- 7825 Nov, [facility] [place] [facility] [address] [id number][place] [address]- 3586 Oct, [facility] [address] [address]- 2256 Oct, [facility] [address], [place] [address]- 5058 August, [facility] [address], [place] [address]- 8959 Apr, [facility] [address], [place] [address]- 4141 Apr, [facility] [address], [place] [address]- 1632 Feb, [facility] [address] 2348 Feb, [facility] [address], [place] [address]- 7624 Dec, [facility] [address], [place] [address]- 2564 Dec, [facility] [address], [place] [address]- 9282 Oct, [facility] [address], [place] [address]- 5639 Oct, [facility] [address], [place] [address]- 2063 Oct, [facility] [address]- 3979 Jul, IMMUNIZATIONS No Known Immunizations SOCIAL HISTORY Never Assessed REASON FOR VISIT intake PLAN OF CARE Activity Details Follow Up Next Available Reason: Follow-up VITAL SIGNS MEDICATIONS Medication Instructions Dosage Frequency Start Date End Date Duration Status Singulair 10 MG Orally Once a day 1 tablet in the evening 24h Jan, 30 day(s) Active True Metrix Meter w/Device as directed Oct, Active Neurontin 600 mg Orally 2 times a day 1 tablet 12h 30 days Active Breo Ellipta 100-25 mcg/inh Inhalation Once a day INHALE ONE PUFF BY MOUTH ONCE DAILY AT THE SAME TIME EACH DAY 24h Oct, 12 months Active Ibuprofen 800MG TAKE ONE TABLET BY MOUTH THREE TIMES DAILY NEEDED Active Metformin HCl 1000MG Orally 2 times a day TAKE ONE TABLET BY MOUTH TWICE DAILY 12h 90 days Active Omeprazole 40 MG Orally Once a day 1 capsule 24h Active True Metrix Meter w/Device as directed Oct, Active Pravastatin Sodium 20 MG Orally Once a day 1 tablet 24h Active Plaquenil 200 mg Orally Once a day 1 tablet with food or milk 24h Active Tizanidine HCl 4 MG Orally 3 times a day 1 1/2 tablets 8h Active Lisinopril 2.5 MG Orally Once a day 1 tablet 24h Nov, Active Incontinence Supply Disposable SUPPLIES as directed Feb, 30 days Not-Taking Spironolactone 50MG Orally Once a day 1 tablet 24h Active Zoloft 50 MG Orally Once a day 1 tablet 24h Not-Taking Invega Sustenna 234 MG/1.5ML Intramuscular Once a month, on the 10th of every month 1.5 ml Active Levothyroxine Sodium 175 MCG Orally Once a day 1 tablet 24h 30 Active Ventolin HFA 108 (90 Base) MCG/ACT Inhalation every 4 hrs PRN 2 puffs as needed Feb, 12 months Active Januvia 100MG Orally Once a day 1 tablet 24h 30 days Active Tramadol HCl 50 mg Orally 2 times a day 1 tablet as needed 12h 28 days Active Zoloft 100 MG Orally Once a day 2 tablet 24h Mar, Active Cetirizine HCl 10 mg Orally Once a day 1 tablet 24h Jun, Sep, 90 days Active True Metrix Blood Glucose Test - subcutaneously 2 times a day as directed ( pt tests twice daily) 12h Oct, 30 days Active Gabapentin 600 MG Orally Three times a day 1 tablet 8h Active Loxapine Succinate 25 MG Orally 4 times a day PRN 1 capsule Active True Metrix Blood Glucose Test - In Vitro 4 times a day as directed 6h Oct, 30 days Active Norvasc 10 mg Orally Once a day 1 tablet 24h Active Sumatriptan Succinate 50 MG TAKE 1 TABLET BY MOUTH NEEDED FOR MIGRAINE- MAY REPEAT IN 2 HOURS IF NEEDED (TWICE A DAY) 10 Active Ambien 5 mg Orally Once a day 1 tablet at bedtime 24h Oct, 28 days Active HydrOXYzine HCl 50 mg TAKE ONE TO TWO TABLETS BY MOUTH EVERY 8 HOURS NEEDED FOR 30 DAYS Active Myrbetriq 50 MG Orally Once a day 1 tablet 24h Active Estradiol 1 MG TAKE 1 TABLET BY MOUTH ONCE DAILY 30 Active Fluticasone Propionate 50 MCG/ACT Nasally Once a day 1 spray in each nostril 24h Jun, 30 day(s) Active Restasis 0.05 % instill 1 drop into affected eye(s) by ophthalmic route 2 times per day Oct, Active RESULTS No Results PROCEDURES Procedure Date Ordered Result Body Site [facility] VISIT MENTAL HEALTH ESTAB PT November 16, 2017 Psych diagnostic evaluation, established patient November 16, 2017 INSTRUCTIONS MEDICATIONS ADMINISTERED No Known Medications [...] illness , last one in [facility] 4 years ago
--- OUTSIDE RECORDS SUMMARY | 2018-09-02 13:31 | XMS REPORT ---
Author Author SOTO STRICKLAND Organization [facility] Address [address] [place] [address] Care Team Providers Care Sheep Clipper Name Role Phone SOTO STRICKLAND Unavailable PROBLEMS Type Condition ICD9-CM Code XRS30-SA Code Onset Dates Condition Status SNOMED Code Problem OAB (overactive bladder) N32.81 Active 225842633 Problem Depression with anxiety F41.8 Active 424759181 Problem Other seasonal allergic rhinitis J30.2 Active 042275347 Problem Chronic obstructive pulmonary disease, unspecified COPD type J44.9 Active 51706312 Problem Tobacco abuse Z72.0 Active 358562393 Problem Morbid obesity due to excess calories E66.01 Active 681370440 Problem Dyslipidemia E78.5 Active 217702099 Problem Hypothyroidism (acquired) E03.9 Active 664175323 Problem Essential hypertension I10 Active 28228177 Problem Diabetic polyneuropathy associated with type 2 diabetes mellitus E11.42 Active 269054275 Problem Type 2 diabetes mellitus with diabetic neuropathic arthropathy, 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 Active 472201520 Problem Type 2 diabetes mellitus without complication, without long-term current use of insulin E11.9 Active 333061365 Problem Paranoid schizophrenia F20.0 Active 87801133 Problem Chronic pain syndrome G89.4 Active 978894851 Problem Migraine without aura and without status migrainosus, not intractable G43.009 Active 403915600 Problem Gastroesophageal reflux disease, esophagitis presence not specified K21.9 Active 237283757 Problem Seasonal allergic rhinitis due to pollen J30.1 Active 33682701 Problem COPD exacerbation J44.1 Active 865953795 Problem Seasonal allergic rhinitis due to other allergic trigger J30.89 Active 082724341 Problem Schizoaffective disorder, depressive type F25.1 Active 70631001 Problem History of lupus Z87.39 Active 581232769 Problem Gastroesophageal reflux disease without esophagitis K21.9 Active 287542671 Problem Menopausal syndrome (hot flashes) N95.1 Active 116923158 Problem Other allergic rhinitis J30.89 Active 781456585 Problem Primary insomnia F51.01 Active 6983549 Problem DM neuro manif type II E11.49 Active 80289896 ALLERGIES No Information ENCOUNTERS Encounter Location Date Diagnosis [facility] [id number] [place] [address] 97815- 9184 Jan, [facility] [id number] [place] [address] 39188- 0378 Jan, [facility] [id number] [place] [address] 37049- 6751 Jan, [facility] [address] 69399- 9280 Dec, [facility] [id number] [place] [address] 29005- 7296 Dec, Schizoaffective disorder, depressive type F25.1 [facility] [id number] [place] [address] 99028- 4021 Dec, [facility] [id number] [place] [address] 53429- 9328 Nov, Schizoaffective disorder, depressive type F25.1 and BMI 45.0 -49.9, adult Z68.42 [facility] [id number] [place] [address] 00175- 5591 Nov, [facility] [id number] [place] [address] 97789- 2528 Nov, [facility] [id number] [place] [address] 93924- 1769 Nov, Schizoaffective disorder, depressive type F25.1 [facility] [id number] [place] [address] 58108- 9621 Nov, Well woman exam Z01.419 ; BMI 45.0-49.9, adult Z68.42 ; Screening breast examination Z12.31 and Dietary counseling and surveillance Z71.3 [place] [address] [address] 4[address] Nov, Paranoid schizophrenia F20.0 [place] [id number] [place] [address] 69724- 5030 Nov, Gastroesophageal reflux disease, esophagitis presence not specified K21.9 [place] [id number] [place] [address] 46330- 9134 Oct, Paranoid schizophrenia F20.0 [address] [id number] [place] [address] Oct Chronic pain syndrome G89.4 and Schizoaffective disorder, depressive type F25.1 [place] [id number] [place] [address] 41343- 6112 Oct, Chronic pain syndrome G89.4 and Schizoaffective disorder, depressive type F25.1 [place] [id number] [place] [address] 22129- 1229 Oct, Type 2 diabetes mellitus without complication, without long- term current use of insulin E11.9 [place] [id number] [place] [address] 16934- 6386 12 Oct, 2017 Essential hypertension I10 and DM neuro manif type II E11.49 [place] [id number] [place] [address] 42206- 6935 Oct, [place] [id number] [place] [address] 98000- 5175 Oct, Schizoaffective disorder, depressive type F25.1 and BMI 45.0 -49.9, adult Z68.42 [place] [id number] [place] [address] 90424- 2299 Oct, [place] [id number] [place] [address] 14414- 9673 Oct, Paranoid schizophrenia F20.0 [place] [id number] [place] [address] 65313- 3804 Oct, Type 2 diabetes mellitus with diabetic neuropathic arthropathy, 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 ; Essential hypertension I10 ; Hypothyroidism (acquired) E03.9 ; Chronic obstructive pulmonary disease, unspecified COPD type J44.9 and Diabetic polyneuropathy associated with type 2 diabetes mellitus E11.42 [facility] [id number] [place] [address] 51304- 1293 Sep, Paranoid schizophrenia F20.0 [facility] [id number] [place] [address] 84948- 2332 Sep, Paranoid schizophrenia F20.0 and BMI 45.0-49.9, adult Z68.42 [facility] [id number] [place] [address] 25378- 9849 Sep, Schizoaffective disorder, depressive type F25.1 [facility] [id number] [place] [address] 01511- 1377 Sep, [facility] [id number] [place] [address] 65888- 7210 Sep, Paranoid schizophrenia F20.0 [facility] [id number] [place] [address] 89914- 4606 Sep, [facility] [id number] [place] [address] 86746- 6685 Sep, Hypothyroidism (acquired) E03.9 [facility] [id number] [place] [address] 71207- 8466 Sep, [facility] [id number] [place] [address] 42989- 4700 August, Schizoaffective disorder, depressive type F25.1 [facility] [id number] [place] [address] 77477- 9014 August, [facility] [id number] [place] [address] 66599- 3157 August, [facility] [id number] [place] [address] 99643- 8876 August, [place] [address] 14339- 9947 August, Paranoid schizophrenia F20.0 [place] [id number] [place] [address] 23624- 1094 August, History of lupus Z87.39 and Chronic pain syndrome G89.4 [place] [address] 00379- 3938 August, [facility] [place] [address] 60565 -4024 August, Seasonal allergic rhinitis, unspecified trigger J30.2 and BMI 45.0-49.9, adult Z68.[address] 18298- 9934 Jul, Schizoaffective disorder, depressive type F25.1 [place] [id number] [place] [address] 23637- 4110 Jul, [place] [address] 38844- 4488 Jul, Hypothyroidism (acquired) E03.9 [place] [address] 53522- 6097 Jul, Chronic obstructive pulmonary disease, unspecified COPD type J44.9 and Type 2 diabetes mellitus without complication, without long-term current use of insulin E11.9 [place] [id number] [place] [address] 13036- 1765 Jul, Paranoid schizophrenia F20.0 [place] [address] 78771- 7224 Jun, Hypothyroidism (acquired) E03.9 and Seasonal allergic rhinitis due to pollen J30.1 [facility] [id number] [place] [address] 06127 -2136 Jun, Shortness of breath at rest R06.02 ; COPD exacerbation J44.1 and BMI 45.0-49.9, adult Z68.42 [facility] [id number] [place] [address] 76723- 6505 Jun, [facility] [id number] [place] [address] 01757- 4215 Jun, Paranoid schizophrenia F20.0 ; Depression with anxiety F41.8 and BMI 45.0-49.9, adult Z68.42 [facility] [id number] [place] [address] 08885- 4816 Jun, Schizoaffective disorder, depressive type F25.1 [facility] [id number] [place] [address] [id number] Jun, Dental caries K02.9 [facility] [address] 43528- 3850 Jun, Paranoid schizophrenia F20.0 [facility] [id number] [place] [address] 54001- 0296 May, Migraine without aura and without status migrainosus, not intractable G43.009 ; DM neuro manif type II E11.49 and Type 2 diabetes mellitus without complication, without long-term current use of insulin E11.9 [facility] [id number] [place] [address] 90481- 0870 May, Migraine without aura and without status migrainosus, not intractable G43.009 [facility] [id number] [place] [address] 92903- 1919 May, Depression with anxiety F41.8 [facility] [id number] [place] [address] [id number] May, [facility] [id number] [place] [address] 92786- 0142 May, [facility] [id number] [place] [address] 84764- 0822 May, [place] [id number] [place] [address] 73546- 7977 May, Hypothyroidism (acquired) E03.9 [place] [id number] [place] [address] 19363- 1971 May, Paranoid schizophrenia F20.0 [place] [address] 08739- 7289 May, Type 2 diabetes mellitus without complication, [...] N32.81 and Controlled substance agreement signed Z79.899 [place] [address] 42888- 4250 May, Controlled substance agreement signed Z79.899 [place] [id number] [place] [address] 96712- 7555 Apr, [facility] [id number] [place] [address] [id number] Apr, Dental examination Z01.20 [place] [id number] [place] [address] 48872- 0384 Apr, Paranoid schizophrenia F20.0 [place] [id number] [place] [address] 23794- 5745 Apr, Hypertension, unspecified type I10 [place] [address] 69070- 0257 Apr, Paranoid schizophrenia F20.0 [facility] [id number] [place] [address] 80117- 8919 Apr, [facility] [id number] [place] [address] 08494- 1527 Apr, Tobacco abuse Z72.0 [facility] [id number] [place] [address] 68112- 4047 Apr, [facility] [id number] [place] [address] 18970- 2931 Mar, [facility] [id number] [place] [address] 01904- 8352 Mar, Paranoid schizophrenia F20.0 and BMI 45.0-49.9, adult Z68.42 [place] [id number] [place] [address] 26723- 9718 Mar, Schizoaffective disorder, depressive type F25.1 [facility] [id number] [place] [address] 03030- 1508 Mar, [place] [id number] [place] [address] 28027- 8872 Mar, Hypothyroidism, unspecified type E03.9 [facility] [id number] [place] [address] 89075- 9988 Mar, Schizoaffective disorder, depressive type F25.1 [facility] [id number] [place] [address] 95127 -6473 Feb, Gastroenteritis K52.9 and BMI 45.0-49.9, adult Z68.42 [facility] [id number] [place] [address] 78301- 9501 Feb, [facility] [id number] [place] [address] 48853- 2510 Feb, [facility] [address] 56073- 4693 Feb, [place] [address] 81759- 7823 Feb, [address] 95238- 0485 Feb, Paranoid schizophrenia F20.[address] 30726- 2903 Feb, Gastroesophageal reflux disease without esophagitis K21.9 ; Other seasonal allergic rhinitis J30.2 ; Other allergic rhinitis J30.89 ; Tobacco abuse Z72.0 and BMI 40.0-44.9, adult Z68.[address] 32832- 4771 Feb, Onychomycosis B35.1 ; Callus of foot L84 and DM neuro manif type II E11.[address] 13366- 7872 Jan, Chronic allergic rhinitis J30.[address] 39220- 4056 Jan, [address] 97949- 6096 Jan, Schizoaffective disorder, depressive type F25.[address] 90090- 7464 Jan, [facility] [address] [place] [address] 43381 -4120 Jan, Sore throat J02.9 and Seasonal allergic rhinitis due to other allergic trigger J30.[address] 76260- 2655 Jan, [place] [address] 80362- 4915 Jan, [facility] [address] [place] [address] 18405 -3470 Jan, Chronic allergic rhinitis J30.9 [facility] [id number] [place] [address] 04274- 7983 Dec, Paranoid schizophrenia F20.0 ; Primary insomnia F51.01 and Schizoaffective disorder, depressive type F25.1 [facility] [id number] [place] [address] 79887- 9109 Dec, Chronic pain syndrome G89.4 ; Cervicalgia of occipito- atlanto-axial region M54.2 ; Menopausal syndrome (hot flashes) N95.1 and Encounter for immunization Z23 [place] [address] 87737- 2123 Dec, [place] [id number] [place] [address] 63807- 5335 Dec, [place] [address] 86067- 4262 Dec, Paranoid schizophrenia F20.0 [place] [id number] [place] [address] 05265- 0694 Dec, Schizoaffective disorder, depressive type F25.1 [facility] [id number] [place] [address] 87676- 7280 Nov, Hypothyroidism, unspecified type E03.9 [facility] [id number] [place] [address] 69986 -6546 Nov, Acute seasonal allergic rhinitis due to other allergen J30.89 [facility] [id number] [place] [address] 91970- 4523 Nov, [facility] [id number] [place] [address] 51092- 1404 Nov, Hypothyroidism, unspecified type E03.9 and Other elevated white blood cell (WBC) count D72.828 [place] [id number] [place] [address] 26587- 8307 Nov, Schizoaffective disorder, depressive type F25.1 [place] [address] [address]- 8683 Nov, Paranoid schizophrenia F20.0 [place] [id number] [place] [address] 70733- 4214 Nov, Type 2 diabetes mellitus without complication, without long- term current use of insulin E11.9 ; Morbid obesity due to excess calories E66.01 and Chronic pain syndrome G89.4 [place] [id number] [place] [address] 97925- 7686 Oct, Paranoid schizophrenia F20.0 [place] [id number] [place] [address] 53807- 1987 Oct, [place] [id number] [place] [address] 69791- 4120 Oct, Schizoaffective disorder, depressive type F25.1 [place] [address] [place] [address] 94806- 6658 Oct, Hypothyroidism, unspecified type E03.9 and Other elevated white blood cell (WBC) count D72.828 [place] [id number] [place] [address] 06436- 7769 Oct, Morbid obesity due to excess calories E66.01 ; Chronic obstructive pulmonary disease, unspecified COPD type J44.9 ; History of lupus Z87.39 ; Hypothyroidism, unspecified type E03.9 ; Gastroesophageal reflux disease without esophagitis K21.9 ; Primary insomnia F51.01 and Chronic pain syndrome G89.4 [place] [address], [place] [address]- 3841 Sep, [place] [id number] [place] [address] 05947- 2668 Sep, [place] [id number] [place] [address] 73088- 3614 Sep, [place] [address] [address]- 6768 Sep, Paranoid schizophrenia F20.0 [facility] [id number] [place] [address] 32202- 8422 Sep, [facility] [id number] [place] [address] 63193- 5749 Sep, Paranoid schizophrenia F20.0 [facility] [id number] [place] [address] 41855- 6442 Sep, [facility] [id number] [place] [address] 10328- 2001 August, Paranoid schizophrenia F20.0 [facility] [id number] [place] [address] 17213- 4501 Jul, [facility] [id number] [place] [address] 41814- 8413 Jul, Type 2 diabetes mellitus without complication, without long- term current use of insulin E11.9 ; Morbid obesity due to excess calories E66.01 ; Depression with anxiety F41.8 ; Hypothyroidism, unspecified type E03.9 ; Seasonal allergic rhinitis due to other allergic trigger J30.89 ; Pain, dental K08.89 and Gastroesophageal reflux disease without esophagitis K21.9 [facility] [id number] [place] [address] [id number] Jul, Dental examination Z01.20 [facility] [id number] [place] [address] 75144- 4026 Jul, Paranoid schizophrenia F20.0 [facility] [id number] [place] [address] 75190- 4649 13 Jun, 2016 Paranoid schizophrenia F20.0 and Depression with anxiety F41.8 [facility] [id number] [place] [address] 87259- 7332 10 Jun, 2016 Paranoid schizophrenia F20.0 and Depression with anxiety F41.8 [facility] [id number] [place] [address] 36270- 0289 Jun, [place] [id number] [place] [address] 33074- 8433 Jun, [facility] [place] [id number] [place] [address] 39802 -9181 Jun, Seasonal allergic rhinitis due to other allergic trigger J30.89 [facility] [place] [address] 73706 -3290 May, Sore throat J02.9 ; Other viral agents as the cause of diseases classified elsewhere B97.89 and Acute upper respiratory infection, unspecified J06.9 [place] [address] 46925- 4180 08 May, 2016 Paranoid schizophrenia F20.0 and Depression with anxiety F41.8 [place] [address] 74692- 5676 Apr, Other seasonal allergic rhinitis J30.2 [place] [id number] [place] [address] 66992- 5874 Apr, Paranoid schizophrenia F20.0 and Depression with anxiety F41.8 [facility] [place] [id number] [place] [address] 60215 -9793 Apr, Bronchitis J40 and Sore throat J02.9 [place] [id number] [place] [address] 56100- 8701 Apr, Type 2 diabetes mellitus without complication, without long- term current use of insulin E11.9 [facility] [place] [id number] [place] [address] 13580 -1624 Apr, Bronchitis J40 [place] [id number] [place] [address] 33025- 8483 Apr, [place] [id number] [place] [address] 85096- 0142 Apr, [place] [id number] [place] [address] 02819- 5077 Mar, Type 2 diabetes mellitus without complication, [...] R60.9 and Other seasonal allergic rhinitis J30.2 [place] [address] 55761- 1349 Mar, Paranoid schizophrenia F20.0 and Depression with anxiety F41.8 [place] [id number] [place] [address] 88643- 3637 Feb, [place] [address] 64902- 3742 Feb, [place] [id number] [place] [address] 32901- 8054 Feb, [place] [address] 24712- 7447 Feb, [place] [id number] [place] [address] 00875- 7561 Feb, Type 2 diabetes mellitus without complication, without long- term current use of insulin E11.9 ; ARIAS on CPAP G47.33 and Preoperative evaluation to rule out surgical contraindication Z01.818 [place] [id number] [place] [address] 80259- 6786 Feb, Paranoid schizophrenia F20.0 and Depression with anxiety F41.8 [place] [id number] [place] [address] 30461- 5211 Jan, [place] [id number] [place] [address] 49592- 6675 Jan, Paranoid schizophrenia F20.0 and Depression with anxiety F41.8 [facility] [address] [facility] [id number] [place] [address]- 6031 17 Jan, 2016 [facility] [address] [facility] [id number] [place] [address] 75377- 2946 14 Jan, 2016 Muscle strain T14.8 [facility] [address] [facility] [id number] [place] [address]- 9020 Jan, Paranoid schizophrenia F20.0 [facility] [address] [facility] [id number] [address]- 3631 Jan, [facility] [address] [facility] [id number] [place] [address] 59686- 6437 Jan, Paranoid schizophrenia F20.0 and Depression with anxiety F41.8 [facility] [address] [facility] [id number], [place] [address] Jan, [facility] [address] [facility] [id number] [place] [address] Jan, [facility] [address] [facility] [id number], [place] [address] 28 Dec, 2015 [facility] [address] [facility] [id number] [place] [id number] 23 Dec, 2015 Paranoid schizophrenia F20.0 [facility] [address] [facility] [id number], [place] [address] 16 Dec, 2015 Paranoid schizophrenia F20.0 and Depression with anxiety F41.8 [facility] [address] [facility] [id number], [place] [address] Nov, [facility] [address] [facility] [id number] [address] 24 Nov, 2015 Paranoid schizophrenia F20.0 [facility] [address] [facility] [id number] [address] Nov, Paranoid schizophrenia F20.0 and Depression with anxiety F41.8 [place] [address] [address] [id number] [place] [address] 48467- 2308 Nov, Type 2 diabetes mellitus without complication, without long- term current use of insulin E11.9 ; Paranoid schizophrenia F20.0 ; Chronic obstructive pulmonary disease, unspecified COPD type J44.9 ; Morbid obesity due to excess calories E66.01 and Parkinsonian tremor G20 [address] [id number] [place] [address] 38366- 2092 Nov, [place] [id number] [place] [address] 72982- 4921 Oct, Paranoid schizophrenia F20.0 [place] [id number] [place] [address] 52375- 6082 Oct, Paranoid schizophrenia F20.0 [place] [id number] [place] [address] 88821- 6361 Oct, Paranoid schizophrenia F20.0 and Depression with anxiety F41.8 [place] [id number] [place] [address] 36414- 2761 Oct, [place] [id number] [place] [address] 93250- 7465 Oct, Paranoid schizophrenia F20.0 and Depression with anxiety F41.8 [place] [id number] [place] [address] 00757- 0316 Oct, Nasal sore J34.89 [place] [id number] [place] [address] 49553- 0015 Oct, Type 2 diabetes mellitus without complication, without long- term current use of insulin E11.9 ; Depression with anxiety F41.8 ; Hypothyroidism, unspecified type E03.9 and History of lupus Z87.39 [place] [id number] [address] 4731 Oct, [place] [id number] [place] [address] 16003- 9844 01 Raji, 2016 Type 2 diabetes mellitus [...] edema R60.9 and History of lupus Z87.39 [facility] [id number] [address] 4758 Feb, [facility] [id number] [place] [address] 15410- 9841 Jan, [facility] [id number] [place] [address] [id number]- 0429 Jan, [facility] [id number] [place] [address] 95409- 8676 Jan, [facility] [id number] [id number] 2883 Dec, [facility] [id number] [place] [address] [id number]- 4917 Nov, [facility] [id number] [address]- 9376 Nov, [facility] [id number] [place] [address] 97316- 5427 Oct, [facility] [id number] 6060 Oct, [facility] [id number] [place] [address] 40424- 8496 Oct, [facility] [id number] 0453 Sep, Allergic rhinitis 477.9 [facility] [id number] [place] [address]- 5488 11 Sep, 2014 Rhinitis, allergic 477.9 [facility] [address] [id number] [place] [address]- 7990 10 Sep, 2014 Rhinitis, allergic 477.9 [facility] [address] [facility] [id number] [place] [address]- 7800 09 Sep, 2014 [facility] [place] [facility] [address] [facility] [id number] [place] [address]- 6508 August, [facility] [place] [facility] [address] [id number] [place] [address]- 1113 August, [facility] [place] [facility] [address] [facility] [id number] [place] [address]- 6691 August, [facility] [place] [facility] [id number] [place] [address]- 4222 Jul, [facility] [id number] [place] [address]- 6121 14 Jul, 2014 [facility] [place] [facility] [address] [facility] [id number] [place] [address]- 2882 Jul, [facility] [place] [facility] [id number] [place] [address]- 8489 16 Jun, 2014 [facility] [place] [facility] [address] [facility] [id number] [place] [address]- 7823 16 Jun, 2014 [facility] [place] [facility] [address] [facility] [id number] [place] [address]- 7050 Jun, [facility] [place] [facility] [address] [facility] [id number] [place] [address]- 0576 Jun, [facility] [place] [facility] [address] [facility] [id number] [place] [address]- 1024 Jun, [facility] [place] [facility] [address] [facility] [id number] [place] [address]- 9189 Jun, [facility] [place] [facility] [address] [facility] [id number] [place] [address]- 0259 Jun, 2014 [facility] [place] [facility] [address] [id number] [place] [address]- 0820 Jun, 2014 [facility] [place] [facility] [address] [id number] [place] [address]- 7206 May, 2014 [facility] [place] [facility] [address] [id number] [place] [address]- 3186 May, 2014 [facility] [place] [facility] [address] [id number] [place] 0715 May, 2014 [facility] [place] [facility] [address] [id number] [place] [address]- 2192 May, 2014 [facility] [place] [facility] [address] [id number] [place] [address]- 8904 Apr, [facility] [place] [facility] [address] [id number] [place] [address]- 8350 Mar, [facility] [place] [facility] [address] [id number] [place] [address]- 7435 Mar, [facility] [place] [facility] [address] [id number] [place] [address]- 9389 Mar, [facility] [place] [facility] [address] [id number] [place] [address]- 4712 Mar, [facility] [place] [facility] [address] [id number] [place] [address]- 6106 Mar, [facility] [place] [facility] [address] [id number] [place] [address]- 9175 Mar, [facility] [place] [facility] [address] [id number] [place] 7813 Mar, [facility] [place] [facility] [address] [id number] [place] [address]- 2976 Mar, [facility] [place] [facility] [address] [id number] [place] [address]- 7612 Mar, [facility] [place] [facility] [address] [id number] [place] [address]- 4790 Feb, [facility] [place] [facility] [address] [id number] [place] [address]- 3162 Feb, [facility] [place] [facility] [address] [id number] [place] [address]- 1802 Feb, [facility] [place] [facility] [address] [id number] [place] [address]- 7798 Feb, [facility] [place] [facility] [address] [id number] [place] [address]- 7622 Feb, [facility] [place] [facility] [address] [id number] [place] [address]- 2965 Feb, [facility] [place] [facility] [address] [id number] [place] [address]- 9605 Feb, [facility] [place] [facility] [address] [id number] [place] [address]- 0001 Feb, [facility] [place] [facility] [address] [id number] [place] [address]- 4775 Jan, [facility] [place] [facility] [address] [id number] [place] [address]- 1670 Jan, [facility] [place] [facility] [address] [id number] [place] [address]- 6007 Jan, [facility] [place] [facility] [address] [id number] [place] [address]- 8889 16 Jan, 2014 [facility] [place] [facility] [address] [id number] [place] [address]- 1418 15 Jan, 2014 [facility] [place] [facility] [address] [id number] [place] [address]- 2063 15 Jan, 2014 [facility] [place] [facility] [address] [id number] [place] [address]- 2904 14 Jan, 2014 [facility] [place] [facility] [address] [id number] [place] [address]- 2354 14 Jan, 2014 [facility] [place] [facility] [address] [id number] [place] [address]- 8649 14 Jan, 2014 [facility] [place] [facility] [address] [id number] [place] [address]- 9629 14 Jan, 2014 [facility] [place] [facility] [address] [id number] [place] [address]- 6659 18 Dec, 2013 [facility] [place] [facility] [address] [id number] [place] [address]- 1072 18 Dec, 2013 [facility] [place] [facility] [address] [id number] [place] [address]- 6451 Dec, [facility] [place] [facility] [address] [id number] [place] [address]- 1068 Dec, [facility] [place] [facility] [address] [id number] [place] [address]- 7641 Nov, [facility] [place] [facility] [address] [id number] [place] [address]- 5275 Nov, [facility] [place] [facility] [address] [id number] [place] [address]- 8240 Nov, [facility] [place] [facility] [address] [id number] [place] [address]- 3953 Nov, [facility] [place] [facility] [address] [id number] [place] [address]- 9155 Nov, [facility] [place] [facility] [address] [id number] [place] [address]- 0976 Oct, [facility] [place] [facility] [address] [id number] [place] [address]- 7721 Oct, [facility] [place] [facility] [address] [id number] [place] [address]- 5370 Oct, [facility] [place] [facility] [address] [id number] [place] [address]- 0147 Oct, [facility] [place] [facility] [address] [id number] [place] [address]- 9068 Sep, [facility] [place] [facility] [address] [id number] [place] [address]- 3384 Sep, [facility] [place] [facility] [address] [id number] [place] [address]- 1219 Sep, [facility] [place] [facility] [address] [id number] [place] [address]- 0789 Sep, [facility] [place] [facility] [address] [id number] [place] [address]- 1472 Sep, [facility] [place] [facility] [address] [id number] [place] [address]- 6235 Sep, [facility] [place] [facility] [address] [id number] [place] [address]- 7326 Sep, [facility] [place] [facility] [address] [id number] [place] [address]- 6834 Sep, [facility] [address] [id number] [place] [address]- 0110 August, [facility] [place] [facility] [address] [id number] [place] [address]- 2673 August, [facility] [place] [facility] [address] [id number] [place] [address]- 3996 August, [facility] [place] [facility] [address] [id number] [place] [address]- 7888 August, [facility] [place] [facility] [address] [id number] [place] [address]- 6746 August, [facility] [place] [facility] [address] [id number] [place] [address]- 3176 August, [facility] [place] [facility] [address] [id number] [place] [address]- 2630 August, [facility] [place] [facility] [address] [id number] [place] [address]- 9355 Jul, [facility] [place] [facility] [address] [id number] [place] [address]- 9963 Jul, [facility] [place] [facility] [address] [id number] [place] [address]- 2742 Jul, [facility] [place] [facility] [address] [id number] [place] [address]- 9800 Jul, [facility] [place] [facility] [address] [id number] [place] [address]- 5156 Jul, [facility] [place] [facility] [address] [id number] [place] [address]- 0952 Jul, [facility] [place] [facility] [address] [id number] [place] [address]- 9408 Jul, [facility] [place] [facility] [address] [id number] [place] [address]- 8763 Jul, [facility] [place] [facility] [address] [id number] [place] [address]- 3127 Jul, [facility] [place] [facility] [address] [id number] [place] [address]- 9479 Jul, [facility] [place] [facility] [address] [id number] [place] [address]- 6756 Jul, [facility] [place] [facility] [address] [id number] [place] [address]- 2689 Jul, [facility] [place] [facility] [address] [id number] [place] [address]- 8155 Jun, [facility] [place] [facility] [address] [id number] [place] [address]- 2611 Jun, [facility] [place] [facility] [address] [id number] [place] [address]- 3666 Jun, [facility] [place] [facility] [address] [id number] [place] 5236 Jun, [facility] [place] [facility] [address] [id number] [place] [address]- 7234 Jun, [facility] [place] [facility] [address] [id number] [place] [address]- 7255 May, [facility] [place] [facility] [address] [id number] [place] 7706 May, 2013 [facility] [place] [facility] [address] [id number] [place] [address]- 8976 May, 2013 [facility] [place] [facility] [address] [id number] [place] [address]- 6494 May, [facility] [place] [facility] [address] [id number] [place] [address]- 8166 May, [facility] [place] [facility] [address] [id number] [place] [address]- 5638 May, [facility] [place] [facility] [address] [facility] [id number] [place] [address]- 2967 May, [facility] [place] [facility] [address] [id number] [place] [address]- 1146 May, [facility] [place] [facility] [address] [facility] [id number] [place] [address]- 7573 Mar, [facility] [place] [facility] [address] [facility] [id number] [place] [address]- 8402 Mar, [facility] [place] [facility] [address] [facility] [id number] [place] [address]- 2601 Mar, [facility] [place] [facility] [address] [id number] [place] 8501 Mar, [facility] [place] [facility] [address] [id number] [place] [address]- 6718 Mar, [facility] [place] [facility] [address] [id number] [place] [address]- 4068 Mar, [facility] [place] [facility] [address] [facility] [id number] [place] 8513 Feb, [facility] [place] [facility] [address] [id number] [place] [address]- 2408 15 Feb, 2013 [facility] [place] [facility] [address] [id number] [place] [address]- 9094 Jan, [facility] [place] [facility] [address] [id number] [place] [address]- 8990 Jan, [facility] [place] [facility] [address] [id number] [place] [address]- 4850 Jan, [facility] [place] [facility] [address] [id number] [place] [address]- 9493 Jan, [facility] [place] [facility] [address] [id number] [place] [address]- 6101 Jan, [facility] [place] [facility] [address] [id number] [place] [address]- 5325 Jan, [facility] [place] [facility] [address] [id number] [place] [address]- 4726 Jan, [facility] [place] [facility] [address] [id number] [place] [address]- 1356 Jan, [facility] [place] [facility] [address] [id number] [address]- 9969 Jan, [facility] [place] [facility] [address] [id number] [place] [address]- 9496 Jan, [facility] [place] [facility] [address] [id number] [address]- 0621 Dec, [facility] [place] [facility] [address] [id number] [place] [address]- 9254 Nov, [facility] [place] [facility] [address] [id number] [place] [address]- 2834 Nov, [facility] [place] [facility] [address] [id number] [place] [address]- 5943 Nov, [facility] [place] [facility] [address] [id number] [address]- 2479 Oct, [facility] [id number], [place] [address]- 5996 Oct, [facility] [id number], [place] [address]- 9515 August, [facility] [id number] [address]- 3941 Apr, [facility] [id number] [address]- 9798 Apr, [facility] [id number] [address]- 4684 Feb, [facility] [id number] [address]- 8299 Feb, [facility] [id number] [address]- 9608 Dec, [facility] [id number] [address]- 2955 Dec, [facility] [id number] [address]- 9203 Oct, [facility] [id number], [place] [address]- 9794 Oct, [facility] [id number] [address]- 8510 Oct, [facility] [id number] [address]- 3007 Jul, IMMUNIZATIONS No Known Immunizations SOCIAL HISTORY Never Assessed REASON FOR VISIT Controlled Med Refill PLAN OF CARE VITAL SIGNS MEDICATIONS Medication Instructions Dosage Frequency Start Date End Date Duration Status Ambien 5 mg Orally Once a day 1 tablet at bedtime 24h Oct, 28 days Active Tramadol HCl 50 mg Orally 2 times a day 1 tablet as needed 12h 28 days Active RESULTS No Results PROCEDURES No [...] illness , last one in [facility] 4 years ago
--- OUTSIDE RECORDS SUMMARY | 2018-09-02 13:31 | XMS REPORT ---
Author Author SAMANTHA REID [facility] Address [address] [place] [address] Care Team Providers Care Tableau Report Developer Name Role Phone SAMANTHA REID Unavailable PROBLEMS Type Condition ICD9-CM Code AGP29-YU Code Onset Dates Condition Status SNOMED Code Problem OAB (overactive bladder) N32.81 Active 072558983 Problem Depression with anxiety F41.8 Active 225126976 Problem Other seasonal allergic rhinitis J30.2 Active 919505840 Problem Chronic obstructive pulmonary disease, unspecified COPD type J44.9 Active 93862122 Problem Tobacco abuse Z72.0 Active 355337309 Problem Morbid obesity due to excess calories E66.01 Active 754798898 Problem Dyslipidemia E78.5 Active 048392362 Problem Hypothyroidism (acquired) E03.9 Active 196386284 Problem Essential hypertension I10 Active 73411609 Problem Diabetic polyneuropathy associated with type 2 diabetes mellitus E11.42 Active 838484787 Problem Type 2 diabetes mellitus with diabetic neuropathic arthropathy, 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 Active 521303537 Problem Type 2 diabetes mellitus without complication, without long-term current use of insulin E11.9 Active 662670396 Problem Paranoid schizophrenia F20.0 Active 04795904 Problem Chronic pain syndrome G89.4 Active 253497965 Problem Migraine without aura and without status migrainosus, not intractable G43.009 Active 535074224 Problem Gastroesophageal reflux disease, esophagitis presence not specified K21.9 Active 047422601 Problem Seasonal allergic rhinitis due to pollen J30.1 Active 30574050 Problem COPD exacerbation J44.1 Active 918052041 Problem Seasonal allergic rhinitis due to other allergic trigger J30.89 Active 538231558 Problem Schizoaffective disorder, depressive type F25.1 Active 14962978 Problem History of lupus Z87.39 Active 034897719 Problem Gastroesophageal reflux disease without esophagitis K21.9 Active 320787081 Problem Menopausal syndrome (hot flashes) N95.1 Active 889122993 Problem Other allergic rhinitis J30.89 Active 749479504 Problem Primary insomnia F51.01 Active 7679349 Problem DM neuro manif type II E11.49 Active 78355713 ALLERGIES No Information ENCOUNTERS Encounter Location Date Diagnosis [facility] [id number] [place] [address] 50130- 2051 Jan, [facility] [id number] [place] [address] 06181- 5157 Jan, [facility] [id number] [place] [address] 23853- 1632 Jan, [place] [id number] [place] [address] 04302- 7555 18 Dec, 2017 [facility] [facility] [id number] [place] [address] 95276- 4897 05 Dec, 2017 Schizoaffective disorder, depressive type F25.1 [facility] [id number] [place] [address] 98041- 0093 Dec, [facility] [id number] [place] [address] 92394- 2410 Nov, Schizoaffective disorder, depressive type F25.1 and BMI 45.0 -49.9, adult Z68.42 [place] [place] [id number] [place] [address] 09987- 9112 Nov, [facility] [id number] [place] [address] 52502- 8536 Nov, [place] [id number] [place] [address] 44566- 2853 Nov, Schizoaffective disorder, depressive type F25.1 [place] [id number] [place] [address] 50126- 5057 Nov, Well woman exam Z01.419 ; BMI 45.0-49.9, adult Z68.42 ; Screening breast examination Z12.31 and Dietary counseling and surveillance Z71.3 [place] [id number] [place] [address] 58124- 3863 Nov, Paranoid schizophrenia F20.0 [place] [id number] [place] [address] 39984- 5207 Nov, Gastroesophageal reflux disease, esophagitis presence not specified K21.9 [place] [id number] [place] [address] 63689- 0112 Oct, Paranoid schizophrenia F20.[address] [id number] [address] Oct Chronic pain syndrome G89.4 and Schizoaffective disorder, depressive type F25.1 [place] [id number] [place] [address] 24329- 3288 Oct, Chronic pain syndrome G89.4 and Schizoaffective disorder, depressive type F25.1 [place] [id number] [place] [address] 18183- 2383 16 Oct, 2017 Type 2 diabetes mellitus without complication, without long- term current use of insulin E11.9 [facility] [id number] [place] [address] 65180- 3000 12 Oct, 2017 Essential hypertension I10 and DM neuro manif type II E11.49 [facility] [id number] [place] [address] 40420- 0361 Oct, [place] [id number] [place] [address] 33390- 0650 Oct, Schizoaffective disorder, depressive type F25.1 and BMI 45.0 -49.9, adult Z68.42 [place] [id number] [place] [address] 54959- 9646 Oct, [facility] [id number] [place] [address] 31455- 7476 Oct, Paranoid schizophrenia F20.0 [place] [id number] [place] [address] 35590- 2150 Oct, Type 2 diabetes mellitus with diabetic neuropathic arthropathy, 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 ; Essential hypertension I10 ; Hypothyroidism (acquired) E03.9 ; Chronic obstructive pulmonary disease, unspecified COPD type J44.9 and Diabetic polyneuropathy associated with type 2 diabetes mellitus E11.42 [facility] [id number] [address] 6651 Sep, Paranoid schizophrenia F20.0 [facility] [id number] [place] [address] 43428- 5386 Sep, Paranoid schizophrenia F20.0 and BMI 45.0-49.9, adult Z68.42 [facility] [id number] [place] [address] 65615- 6391 Sep, Schizoaffective disorder, depressive type F25.1 [facility] [id number] [place] [address] 09546- 5652 Sep, [facility] [id number] [place] [address] 02581- 9277 Sep, Paranoid schizophrenia F20.0 [facility] [id number] [place] [address] 34734- 5940 Sep, [facility] [id number] [address] 3630 Sep, Hypothyroidism (acquired) E03.9 [facility] [id number] [place] [address] 20972- 1496 Sep, [facility] [id number] [place] [address] 94936- 1355 August, Schizoaffective disorder, depressive type F25.1 [facility] [address] [address] 9610 August, [facility] [id number] [place] [address] 09283- 9622 August, [place] [id number] [place] [address] 08181- 9211 August, [place] [address] 68471- 8251 August, Paranoid schizophrenia F20.0 [place] [address] 54189- 9542 August, History of lupus Z87.39 and Chronic pain syndrome G89.4 [place] [address] 26409- 5709 August, [facility] [address] 07267 -4664 August, Seasonal allergic rhinitis, unspecified trigger J30.2 and BMI 45.0-49.9, adult Z68.42 [place] [address] 30702- 3957 Jul, Schizoaffective disorder, depressive type F25.1 [place] [address] 66823- 5812 Jul, [place] [address] 44746- 1737 Jul, Hypothyroidism (acquired) E03.9 [place] [address] 28129- 3326 Jul, Chronic obstructive pulmonary disease, unspecified COPD type J44.9 and Type 2 diabetes mellitus without complication, without long-term current use of insulin E11.9 [place] [id number] [place] [address] 56939- 8256 Jul, Paranoid schizophrenia F20.0 [place] [address] 94586- 3429 Jun, Hypothyroidism (acquired) E03.9 and Seasonal allergic rhinitis due to pollen J30.1 [facility] [address] 40404 -9255 Jun, Shortness of breath at rest R06.02 ; COPD exacerbation J44.1 and BMI 45.0-49.9, adult Z68.42 [facility] [id number] [place] [address] 62200- 8606 Jun, [facility] [id number] [place] [address] 02700- 3324 Jun, Paranoid schizophrenia F20.0 ; Depression with anxiety F41.8 and BMI 45.0-49.9, adult Z68.42 [facility] [id number] [place] [address] 93286- 1818 Jun, Schizoaffective disorder, depressive type F25.1 [facility] [id number] [place] [address] [id number] Jun, Dental caries K02.9 [facility] [id number] [place] [address] 32538- 8966 Jun, Paranoid schizophrenia F20.0 [facility] [id number] [place] [address] 44142- 9683 May, Migraine without aura and without status migrainosus, not intractable G43.009 ; DM neuro manif type II E11.49 and Type 2 diabetes mellitus without complication, without long-term current use of insulin E11.9 [facility] [id number] [place] [address] 16932- 5866 May, Migraine without aura and without status migrainosus, not intractable G43.009 [facility] [id number] [place] [address] 09817- 0090 May, Depression with anxiety F41.8 [facility] [id number] [place] [address] [id number] May, [facility] [id number] [place] [address] 13841- 7466 May, [facility] [address] [place] [address]- 8484 12 May, 2017 [place] [address] 47571- 1161 09 May, 2017 Hypothyroidism (acquired) E03.9 [place] [address] 66587- 8300 08 May, 2017 Paranoid schizophrenia F20.0 [place] [address] 04736- 0528 08 May, 2017 Type 2 diabetes mellitus [...] N32.81 and Controlled substance agreement signed Z79.899 [place] [address] 81692- 7891 02 May, 2017 Controlled substance agreement signed Z79.899 [place] [id number] [place] [address] 59342- 2688 Apr, [facility] [address] [id number] Apr, Dental examination Z01.20 [place] [address] 58268- 8127 Apr, Paranoid schizophrenia F20.0 [place] [address] 12391- 3360 Apr, Hypertension, unspecified type I10 [place] [address] 54932- 4405 Apr, Paranoid schizophrenia F20.0 [facility] [id number] [place] [address] 70836- 4505 Apr, [facility] [id number] [place] [address] 56136- 2082 Apr, Tobacco abuse Z72.0 [facility] [address] 49177- 6958 Apr, [facility] [id number] [place] [address] 87097- 7373 Mar, [facility] [address] 42331- 0724 Mar, Paranoid schizophrenia F20.0 and BMI 45.0-49.9, adult Z68.42 [place] [id number] [place] [address] 71062- 0544 Mar, Schizoaffective disorder, depressive type F25.1 [place] [id number] [place] [address] 00224- 5521 Mar, [place] [address] 38205- 9664 Mar, Hypothyroidism, unspecified type E03.9 [place] [id number] [place] [address] 86930- 7802 Mar, Schizoaffective disorder, depressive type F25.1 [facility] [id number] [place] [address] 26867 -3918 Feb, Gastroenteritis K52.9 and BMI 45.0-49.9, adult Z68.42 [facility] [id number] [place] [address] 94061- 9254 Feb, [facility] [id number] [place] [address] 78724- 0047 Feb, [facility] [address] 34798- 4769 Feb, [place] [id number] [place] [address] 54398- 7366 Feb, [place] [address] 95398- 3315 Feb, Paranoid schizophrenia F20.[address] 63104- 5416 Feb, Gastroesophageal reflux disease without esophagitis K21.9 ; Other seasonal allergic rhinitis J30.2 ; Other allergic rhinitis J30.89 ; Tobacco abuse Z72.0 and BMI 40.0-44.9, adult Z68.[address] 87839- 7073 Feb, Onychomycosis B35.1 ; Callus of foot L84 and DM neuro manif type II E11.[address] 36363- 5458 Jan, Chronic allergic rhinitis J30.9 [place] [id number] [place] [address] 60493- 5040 Jan, [address] 25583- 1761 Jan, Schizoaffective disorder, depressive type F25.[address] 74914- 1563 Jan, [facility] [address] [place] [id number] [place] [address] 98298 -6869 Jan, Sore throat J02.9 and Seasonal allergic rhinitis due to other allergic trigger J30.89 [place] [id number] [place] [address] 19573- 5015 Jan, [place] [address] 14091- 3351 Jan, [facility] [address] [place] [address] [place] [address]908 Jan, Chronic allergic rhinitis J30.9 [place] [address] 93011- 0922 Dec, Paranoid schizophrenia F20.0 ; Primary insomnia F51.01 and Schizoaffective disorder, depressive type F25.1 [place] [address] 69276- 0823 Dec, Chronic pain syndrome G89.4 ; Cervicalgia of occipito- atlanto-axial region M54.2 ; Menopausal syndrome (hot flashes) N95.1 and Encounter for immunization Z23 [place] [address] 99857- 9803 Dec, [place] [address] 62407- 1474 Dec, [place] [address] 65135- 2164 Dec, Paranoid schizophrenia F20.0 [place] [address] 68854- 2433 Dec, Schizoaffective disorder, depressive type F25.1 [place] [address] 73300- 6947 Nov, Hypothyroidism, unspecified type E03.9 [facility] [address] 13178 -2235 Nov, Acute seasonal allergic rhinitis due to other allergen J30.89 [facility] [address] 37017- 8724 Nov, [place] [address] 65678- 7202 Nov, Hypothyroidism, unspecified type E03.9 and Other elevated white blood cell (WBC) count D72.828 [place] [address] 87530- 9426 Nov, Schizoaffective disorder, depressive type F25.1 [facility] [address], [place] [address]- 5204 Nov, Paranoid schizophrenia F20.0 [facility] [address], [place] [address]- 6270 Nov, Type 2 diabetes mellitus without complication, without long- term current use of insulin E11.9 ; Morbid obesity due to excess calories E66.01 and Chronic pain syndrome G89.4 [place] [address], [place] [address]- 8924 Oct, Paranoid schizophrenia F20.0 [place] [id number] [place] [address] 25308- 8280 Oct, [place] [id number] [place] [address] 23546- 8131 Oct, Schizoaffective disorder, depressive type F25.1 [place] [id number] [place] [address] 97631- 7024 Oct, Hypothyroidism, unspecified type E03.9 and Other elevated white blood cell (WBC) count D72.828 [place] [address] [place] [address] 31715- 1087 Oct, Morbid obesity due to excess calories E66.01 ; Chronic obstructive pulmonary disease, unspecified COPD type J44.9 ; History of lupus Z87.39 ; Hypothyroidism, unspecified type E03.9 ; Gastroesophageal reflux disease without esophagitis K21.9 ; Primary insomnia F51.01 and Chronic pain syndrome G89.4 [place] [address], [place] [address]- 6701 Sep, [place] [id number] [place] [address] 94681- 7593 Sep, [place] [id number] [place] [address] 49082- 9888 Sep, [place] [address], [place] [address]- 5992 Sep, Paranoid schizophrenia F20.0 [facility] [address], [place] [address]- 2410 Sep, [facility] [address], [place] [address]- 9402 Sep, Paranoid schizophrenia F20.0 [facility] [address], [place] [address]- 6193 Sep, [facility] [address], [place] [address]- 9990 August, Paranoid schizophrenia F20.0 [facility] [address], [place] [address]- 5074 Jul, [facility] [id number] [place] [address] 58421- 7783 Jul, Type 2 diabetes mellitus without complication, [...] [facility] [address] [id number] Jul, Dental examination Z01.20 [facility] [address], [place] [address]- 2086 07 Jul, 2016 Paranoid schizophrenia F20.0 [facility] [address], [place] [address]- 6932 13 Jun, 2016 Paranoid schizophrenia F20.0 and Depression with anxiety F41.8 [facility] [address], [place] [address]- 9047 10 Jun, 2016 Paranoid schizophrenia F20.0 and Depression with anxiety F41.8 [facility] [id number] [place] [address] 88116- 4910 Jun, [place] [id number] [place] [address] 96918- 8814 Jun, [facility] [address] [place] [id number] [place] [address] 61995 -7057 Jun, Seasonal allergic rhinitis due to other allergic trigger J30.89 [facility] IN [address] 35064 -2390 May, Sore throat J02.9 ; Other viral agents as the cause of diseases classified elsewhere B97.89 and Acute upper respiratory infection, unspecified J06.[address] 77344- 8838 May, Paranoid schizophrenia F20.0 and Depression with anxiety F41.[address] 52184- 9200 Apr, Other seasonal allergic rhinitis J30.2 [place] [id number] [place] [address] 61053- 0518 Apr, Paranoid schizophrenia F20.0 and Depression with anxiety F41.8 [facility] [address] [id number] [place] [address] 15466 -7051 Apr, Bronchitis J40 and Sore throat J02.9 [place] [id number] [place] [address] 62995- 2349 Apr, Type 2 diabetes mellitus without complication, without long- term current use of insulin E11.9 [facility] [id number] [place] [address] 14674 -9843 Apr, Bronchitis J40 [address] 21185- 9187 Apr, [place] [id number] [place] [address] 03846- 2632 Apr, [id number] [place] [address] 75338- 6762 Mar, Type 2 diabetes mellitus without complication, [...] R60.9 and Other seasonal allergic rhinitis J30.2 [place] [id number] [place] [address] 33501- 0725 Mar, Paranoid schizophrenia F20.0 and Depression with anxiety F41.8 [place] [id number] [place] [address] 38547- 4963 Feb, [place] [id number] [place] [address] 10865- 9087 Feb, [place] [id number] [place] [address] 58358- 8773 Feb, [place] [id number] [place] [address] 86914- 8177 Feb, [place] [id number] [place] [address] 97220- 3472 Feb, Type 2 diabetes mellitus without complication, without long- term current use of insulin E11.9 ; ARIAS on CPAP G47.33 and Preoperative evaluation to rule out surgical contraindication Z01.818 [place] [id number] [place] [address] 08924- 7422 Feb, Paranoid schizophrenia F20.0 and Depression with anxiety F41.8 [place] [id number] [place] [address] 76398- 0425 Jan, [place] [id number] [place] [address] 13554- 0205 Jan, Paranoid schizophrenia F20.0 and Depression with anxiety F41.8 [facility] [address] [facility] [id number] [address]- 4068 17 Jan, 2016 [facility] [address] [facility] [id number] [place] [address] 17643- 5985 14 Jan, 2016 Muscle strain T14.8 [facility] [address] [facility] [id number], [place] [address]- 0772 Jan, Paranoid schizophrenia F20.0 [facility] [address] [facility] [id number], [place] [address]- 3076 Jan, [facility] [address] [facility] [id number] [place] [address] 76774- 9208 Jan, Paranoid schizophrenia F20.0 and Depression with anxiety F41.8 [facility] [id number] [address]- 4513 Jan, [facility] [id number] [place] [address] 69759- 1622 Jan, [facility] [address] [facility] [id number], [place] [address]- 6219 28 Dec, 2015 [facility] [address] [facility] [id number] [place] [address] 96164- 1407 23 Dec, 2015 Paranoid schizophrenia F20.0 [facility] [id number], [place] [address]- 5666 16 Dec, 2015 Paranoid schizophrenia F20.0 and Depression with anxiety F41.8 [facility] [address] [facility] [id number], [place] [address]- 6443 Nov, [facility] [address] [facility] [id number], [place] [address]- 2326 24 Nov, 2015 Paranoid schizophrenia F20.0 [facility] [address] [facility] [id number], [place] [address] Nov, Paranoid schizophrenia F20.0 and Depression with anxiety F41.8 [place] [id number] [place] [address] Nov, Type 2 diabetes mellitus without complication, without long- term current use of insulin E11.9 ; Paranoid schizophrenia F20.0 ; Chronic obstructive pulmonary disease, unspecified COPD type J44.9 ; Morbid obesity due to excess calories E66.01 and Parkinsonian tremor G20 [place] [address] [place] [id number] [place] [address] Nov, [place] [address] [place] [id number] [place] [address] Oct, Paranoid schizophrenia F20.0 [place] [address] [address] Oct, Paranoid schizophrenia F20.0 [place] [address] [place] [id number] [place] [address] Oct, Paranoid schizophrenia F20.0 and Depression with anxiety F41.8 [place] [address] [place] [id number] [place] [address] Oct, [place] [address] [address] Oct, Paranoid schizophrenia F20.0 and Depression with anxiety F41.8 [place] [address] [place] [id number] [place] [address]- [address] Oct, Nasal sore J34.89 [place] [address] [place] [id number] [place] [address] 7[address]- 1570 Oct, Type 2 diabetes mellitus without complication, without long- term current use of insulin E11.9 ; Depression with anxiety F41.8 ; Hypothyroidism, unspecified type E03.9 and History of lupus Z87.39 [facility] [facility] [id number] [place] [address] 20038- 0982 Oct, [facility] [facility] [id number] [place] [address] 43154- 3298 Oct, Type 2 diabetes mellitus without complication, [...] edema R60.9 and History of lupus Z87.39 [facility] [id number] [place] [address] 68347- 3116 Feb, [facility] [address] [address]- 9196 Jan, [facility] [id number] [place] [address] 47626- 8726 Jan, [facility] [id number] [place] [address] 28973- 4116 Jan, [facility] [id number] [place] [address] 54996- 8196 Dec, [facility] [id number] [place] [address] 55416- 3076 Nov, [facility] [id number] [place] [address] 38465- 7236 Nov, [facility] [id number] [place] [address] 54103- 2046 Oct, [facility] [id number] [place] [address] 28413- 3036 Oct, [facility] [address] [address]341- 4266 Oct, [facility] [id number] [place] [address] 92372- 0216 Sep, Allergic rhinitis 477.9 [facility] [address] [facility] [id number] [place] [address]- 2583 11 Sep, 2014 Rhinitis, allergic 477.9 [facility] [address] [id number] [place] [address]- 9491 10 Sep, 2014 Rhinitis, allergic 477.9 [facility] [address] [facility] [id number] [place] [address]- 0633 Sep, [facility] [address] [facility] [id number] [place] [address]- 0874 August, [facility] [address] [id number] [place] [address]- 3098 August, [facility] [address] [facility] [id number] [place] [address]- 1316 August, [facility] [address] [id number] [address] 6872 28 Jul, 2014 [facility] [address] [facility] [id number], [place] [address] 5265 14 Jul, 2014 [facility] [address] [id number] [address]- 7425 13 Jul, 2014 [facility] [address] [id number] [address]- 5332 16 Jun, 2014 [facility] [id number], [place] [address] 3569 16 Jun, 2014 [facility] [place] [facility] [address] [facility] [id number], [place] [address]- 3287 Jun, [facility] [place] [facility] [address] [facility] [id number] [place] [address]- 6944 Jun, [facility] [address] [facility] [id number], [place] [address]- 5899 Jun, [facility] [place] [facility] [address] [facility] [id number] [place] [address]- 5165 Jun, [facility] [address] [facility] [id number] [place] [address]- 9893 Jun, 2014 [facility] [address] [id number] [place] [address]- 0692 Jun, 2014 [facility] [place] [facility] [address] [id number] [place] [address]- 6086 May, 2014 [facility] [place] [facility] [address] [id number] [place] [address]- 8236 May, 2014 [facility] [place] [facility] [address] [id number] [place] [address]- 3092 May, 2014 [facility] [place] [facility] [address] [id number] [place] [address]- 2172 May, 2014 [facility] [place] [facility] [address] [facility] [id number] [place] [address]- 8642 Apr, [facility] [place] [facility] [address] [facility] [id number] [place] [address]- 4935 Mar, [facility] [place] [facility] [address] [id number] [place] [address]- 8858 Mar, [facility] [place] [facility] [address] [facility] [id number] [place] [address]- 4520 Mar, [facility] [place] [facility] [address] [facility] [id number] [place] [address]- 5107 Mar, [facility] [place] [facility] [address] [id number] [place] [address]- 8016 Mar, [facility] [place] [facility] [address] [id number] [place] [address]- 5716 Mar, [facility] [place] [facility] [address] [id number] [place] [address]- 4751 05 Mar, 2014 [facility] [place] [facility] [address] [id number] [place] [address]- 0986 Mar, [facility] [place] [facility] [address] [facility] [id number] [place] 1231 Mar, [facility] [place] [facility] [address] [id number] [place] [address]- 2084 Feb, [facility] [place] [facility] [address] [id number] [place] [address]- 2209 Feb, [facility] [place] [facility] [address] [id number] [place] [address]- 9119 Feb, [facility] [place] [facility] [address] [id number] [place] [address]- 8290 Feb, [facility] [place] [facility] [address] [id number] [place] [address]- 2331 Feb, [facility] [place] [facility] [address] [id number] [place] [address]- 2747 Feb, [facility] [place] [facility] [address] [id number] [place] [address]- 1119 Feb, [facility] [place] [facility] [address] [id number] [place] [address]- 5211 Feb, [facility] [place] [facility] [address] [id number] [place] [address]- 7242 Jan, [facility] [place] [facility] [address] [id number], [place] [address]- 8214 Jan, [facility] [place] [facility] [address] [id number], [place] [address]- 5672 16 Jan, 2014 [facility] [place] [facility] [address] [id number], [place] [address]- 6361 16 Jan, 2014 [facility] [place] [facility] [address] [id number] [place] [address]- 4234 15 Jan, 2014 [facility] [place] [facility] [address] [id number] [place] [address]- 7493 15 Jan, 2014 [facility] [place] [facility] [address] [id number], [place] [address]- 3391 14 Jan, 2014 [facility] [place] [facility] [address] [id number], [place] [address]- 6955 14 Jan, 2014 [facility] [place] [facility] [address] [id number] [place] [address]- 4041 14 Jan, 2014 [facility] [place] [facility] [address] [id number] [place] [address]- 6309 14 Jan, 2014 [facility] [place] [facility] [address] [id number] [place] [address]- 7758 18 Dec, 2013 [facility] [place] [facility] [address] [id number] [place] [address]- 0671 18 Dec, 2013 [facility] [place] [facility] [address] [id number] [place] [address]- 8140 Dec, [facility] [place] [facility] [address] [id number] [place] [address]- 3841 Dec, [facility] [place] [facility] [address] [id number] [place] [address]- 0924 Nov, [facility] [place] [facility] [address] [id number] [place] [address]- 2572 Nov, [facility] [place] [facility] [address] [id number] [place] [address]- 5077 Nov, [facility] [place] [facility] [address] [id number] [place] [address]- 3435 Nov, [facility] [place] [facility] [address] [id number] [place] [address]- 3815 Nov, [facility] [place] [facility] [address] [id number] [place] [address]- 7706 Oct, [facility] [place] [facility] [address] [id number] [place] [address]- 3009 Oct, [facility] [place] [facility] [address] [id number] [place] [address]- 5548 Oct, [facility] [place] [facility] [address] [id number] [place] [address]- 2667 Oct, [facility] [place] [facility] [address] [id number] [place] [address]- 8042 Sep, [facility] [place] [facility] [address] [id number] [place] [address]- 5701 Sep, [facility] [place] [facility] [address] [id number] [place] [address]- 4488 Sep, [facility] [place] [facility] [address] [id number] [place] [address]- 5438 Sep, [facility] [place] [facility] [address] [id number] [place] [address]- 3158 Sep, [facility] [place] [facility] [address] [id number] [place] [address]- 5243 Sep, [facility] [place] [facility] [address] [id number] [place] [address]- 0157 Sep, [facility] [place] [facility] [address] [id number] [place] [address]- 8563 Sep, [facility] [place] [facility] [address] [id number] [place] [address]- 8671 August, [facility] [place] [facility] [address] [id number] [place] [address]- 9917 August, [facility] [place] [facility] [address] [id number] [place] [address]- 6490 August, [facility] [place] [facility] [address] [id number] [place] [address]- 6377 August, [facility] [place] [facility] [address] [id number] [place] [address]- 9381 August, [facility] [place] [facility] [address] [id number] [place] [address]- 7462 August, [facility] [place] [facility] [address] [id number] [place] [address]- 4064 August, [facility] [place] [facility] [address] [id number] [place] [address]- 2502 Jul, [facility] [place] [facility] [address] [id number] [place] [address]- 8010 Jul, [facility] [place] [facility] [address] [id number] [place] [address]- 7204 Jul, [facility] [place] [facility] [address] [id number] [place] [address]- 5219 Jul, [facility] [place] [facility] [address] [id number] [place] [address]- 1305 Jul, [facility] [place] [facility] [address] [id number] [place] [address]- 1883 Jul, [facility] [place] [facility] [address] [id number] [place] [address]- 6723 Jul, [facility] [place] [facility] [address] [id number] [place] [address]- 9778 Jul, [facility] [place] [facility] [address] [id number] [place] [address]- 0867 Jul, [facility] [place] [facility] [address] [id number] [place] [address]- 2806 Jul, [facility] [place] [facility] [address] [id number] [place] [address]- 5930 Jul, [facility] [place] [facility] [address] [id number] [place] [address]- 4092 Jul, [facility] [place] [facility] [address] [id number] [place] [address]- 7005 Jun, [facility] [place] [facility] [address] [id number] [place] [address]- 9309 Jun, [facility] [place] [facility] [address] [id number] [place] [address]- 0473 Jun, [facility] [place] [facility] [address] [id number] [place] [address]- 6755 Jun, [facility] [place] [facility] [address] [id number] [place] [address]- 1418 Jun, [facility] [place] [facility] [address] [id number] [place] [address]- 4143 May, [facility] [place] [facility] [address] [id number] [place] [address]- 5416 May, [facility] [place] [facility] [address] [id number] [place] [address]- 6966 May, [facility] [place] [facility] [address] [id number] [place] [address]- 4308 May, [facility] [place] [facility] [address] [id number] [place] [address]- 3748 May, [facility] [place] [facility] [address] [facility] [id number] [place] [address]- 1915 May, [facility] [place] [facility] [address] [facility] [id number] [place] [address]- 1777 May, [facility] [place] [facility] [address] [id number] [place] [address]- 5697 May, [facility] [place] [facility] [address] [facility] [id number] [place] [address]- 7023 Mar, [facility] [place] [facility] [address] [facility] [id number] [place] [address]- 1394 Mar, [facility] [place] [facility] [address] [facility] [id number] [place] [address]- 7312 Mar, [facility] [place] [facility] [address] [id number] [place] [address]- 8216 Mar, [facility] [place] [facility] [address] [id number] [place] 5076 Mar, [facility] [place] [facility] [address] [facility] [id number] [place] [address]- 6410 Mar, [facility] [place] [facility] [address] [facility] [id number] [place] [address]- 7159 Feb, [facility] [place] [facility] [address] [id number] [place] [address]- 1785 15 Feb, 2013 [facility] [place] [facility] [address] [id number] [place] [address]- 9186 Jan, [facility] [place] [facility] [address] [id number] [place] [address]- 9917 Jan, [facility] [place] [facility] [address] [id number] [place] [address]- 4395 Jan, [facility] [place] [facility] [address] [id number] [place] [address]- 3634 Jan, [facility] [place] [facility] [address] [id number] [place] [address]- 5091 Jan, [facility] [place] [facility] [address] [id number] [place] [address]- 0991 Jan, [facility] [place] [facility] [address] [id number], [place] [address]- 0433 Jan, [facility] [place] [facility] [address] [id number] [place] [address]- 3856 Jan, [facility] [place] [facility] [address] [id number], [place] [address]- 6709 Jan, [facility] [place] [facility] [address] [id number], [place] [address]- 3471 Jan, [facility] [place] [facility] [address] [id number], [place] [address]- 3372 Dec, [facility] [place] [facility] [address] [id number] [place] [address]- 3305 Nov, [facility] [place] [facility] [address] [id number], [place] [address]- 8883 Nov, [facility] [place] [facility] [address] [id number], [place] [address]- 3144 Nov, [facility] [place] [facility] [address] [id number], [place] [address]- 1586 Oct, [facility] [id number], [place] [address]- 3475 Oct, [facility] [id number], [place] [address]- 3972 August, [facility] [id number], [place] [address]- 6815 Apr, [facility] [id number], [place] [address]- 1833 Apr, [facility] [id number], [place] [address]- 9321 Feb, [facility] [id number] 6852 Feb, [facility] [id number], [place] [address]- 1973 Dec, [facility] [id number]- 9828 Dec, [facility] [id number], [place] [address]- 0811 Oct, [facility] [address] [id number] 8138 Oct, [facility] [address] [id number], [place] [address]- 5480 Oct, [facility] [address] [id number], [place] [address]- 5757 Jul, IMMUNIZATIONS No Known Immunizations SOCIAL HISTORY Never Assessed REASON FOR VISIT PLAN OF CARE VITAL SIGNS MEDICATIONS Medication Instructions Dosage Frequency Start Date End Date Duration Status Tramadol HCl 50 mg Orally 2 times a day 1 tablet as needed 12h 28 days Active Ambien 5 mg Orally Once a day 1 tablet at bedtime 24h Oct, 28 days Active RESULTS No Results PROCEDURES [...] illness , last one in [facility] 4 years ago
--- OUTSIDE RECORDS SUMMARY | 2018-09-02 13:32 | XMS REPORT ---
Author Author SOTO STRICKLAND Organization [facility] Address [address] [place] [address] Care Team Providers Care Captain'S Assistant Name Role Phone SOTO STRICKLAND Unavailable PROBLEMS Type Condition ICD9-CM Code SSG15-NT Code Onset Dates Condition Status SNOMED Code Problem OAB (overactive bladder) N32.81 Active 011981635 Problem Depression with anxiety F41.8 Active 866049099 Problem Other seasonal allergic rhinitis J30.2 Active 914070729 Problem Chronic obstructive pulmonary disease, unspecified COPD type J44.9 Active 68632293 Problem Tobacco abuse Z72.0 Active 277878215 Problem Morbid obesity due to excess calories E66.01 Active 101540802 Problem Dyslipidemia E78.5 Active 049335519 Problem Hypothyroidism (acquired) E03.9 Active 672777798 Problem Essential hypertension I10 Active 31827195 Problem Diabetic polyneuropathy associated with type 2 diabetes mellitus E11.42 Active 734168657 Problem Type 2 diabetes mellitus with diabetic neuropathic arthropathy, 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 Active 207295773 Problem Type 2 diabetes mellitus without complication, without long-term current use of insulin E11.9 Active 827722224 Problem Paranoid schizophrenia F20.0 Active 28660429 Problem Chronic pain syndrome G89.4 Active 886958591 Problem Migraine without aura and without status migrainosus, not intractable G43.009 Active 674628621 Problem Gastroesophageal reflux disease, esophagitis presence not specified K21.9 Active 144514981 Problem Seasonal allergic rhinitis due to pollen J30.1 Active 59274092 Problem COPD exacerbation J44.1 Active 387928202 Problem Seasonal allergic rhinitis due to other allergic trigger J30.89 Active 489023603 Problem Schizoaffective disorder, depressive type F25.1 Active 68278371 Problem History of lupus Z87.39 Active 412713116 Problem Gastroesophageal reflux disease without esophagitis K21.9 Active 133872193 Problem Menopausal syndrome (hot flashes) N95.1 Active 372917912 Problem Other allergic rhinitis J30.89 Active 657514377 Problem Primary insomnia F51.01 Active 2196865 Problem DM neuro manif type II E11.49 Active 35191257 ALLERGIES No Information ENCOUNTERS Encounter Location Date Diagnosis [facility] [id number] [place] [address] 69278- 8011 Jan, [facility] [id number] [place] [address] 16020- 2657 Jan, [facility] [id number] [place] [address] 06901- 9963 Jan, [facility] [address] 79253- 6608 Dec, [facility] [id number] [place] [address] 67082- 5869 Dec, Schizoaffective disorder, depressive type F25.1 [facility] [id number] [place] [address] 94980- 9407 Dec, [facility] [id number] [place] [address] 56767- 8069 Nov, Schizoaffective disorder, depressive type F25.1 and BMI 45.0 -49.9, adult Z68.42 [facility] [id number] [place] [address] 97770- 0373 Nov, [facility] [id number] [place] [address] 58103- 9301 Nov, [facility] [id number] [place] [address] 22364- 2955 Nov, Schizoaffective disorder, depressive type F25.1 [facility] [id number] [place] [address] 28943- 4215 Nov, Well woman exam Z01.419 ; BMI 45.0-49.9, adult Z68.42 ; Screening breast examination Z12.31 and Dietary counseling and surveillance Z71.3 [place] [address] [address] Nov, Paranoid schizophrenia F20.0 [place] [id number] [place] [address] 67737- 9814 Nov, Gastroesophageal reflux disease, esophagitis presence not specified K21.9 [place] [address] [place] [address] 92611- 3939 Oct, Paranoid schizophrenia F20.0 [address] [id number] [place] [address] Oct Chronic pain syndrome G89.4 and Schizoaffective disorder, depressive type F25.1 [place] [address] [place] [address] 40197- 5131 Oct, Chronic pain syndrome G89.4 and Schizoaffective disorder, depressive type F25.1 [place] [id number] [place] [address] 29729- 4680 Oct, Type 2 diabetes mellitus without complication, without long- term current use of insulin E11.9 [place] [id number] [place] [address] 44800- 8120 12 Oct, 2017 Essential hypertension I10 and DM neuro manif type II E11.49 [place] [id number] [place] [address] 14453- 3945 Oct, [place] [address] [place] [address] 01992- 2397 Oct, Schizoaffective disorder, depressive type F25.1 and BMI 45.0 -49.9, adult Z68.42 [place] [id number] [place] [address] 06603- 9379 Oct, [place] [id number] [place] [address] 11710- 8009 Oct, Paranoid schizophrenia F20.0 [place] [id number] [place] [address] 99059- 9405 Oct, Type 2 diabetes mellitus with diabetic neuropathic arthropathy, 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 ; Essential hypertension I10 ; Hypothyroidism (acquired) E03.9 ; Chronic obstructive pulmonary disease, unspecified COPD type J44.9 and Diabetic polyneuropathy associated with type 2 diabetes mellitus E11.42 [facility] [id number] [place] [address] 44596- 6789 Sep, Paranoid schizophrenia F20.0 [facility] [id number] [place] [address] 17286- 8321 Sep, Paranoid schizophrenia F20.0 and BMI 45.0-49.9, adult Z68.42 [facility] [id number] [place] [address] 00794- 7065 Sep, Schizoaffective disorder, depressive type F25.1 [facility] [id number] [place] [address] 65540- 6889 Sep, [facility] [id number] [place] [address] 05835- 7844 Sep, Paranoid schizophrenia F20.0 [facility] [id number] [place] [address] 96420- 1636 Sep, [facility] [id number] [place] [address] 47379- 0776 Sep, Hypothyroidism (acquired) E03.9 [facility] [id number] [place] [address] 65943- 5857 Sep, [facility] [id number] [place] [address] 85272- 5941 August, Schizoaffective disorder, depressive type F25.1 [facility] [id number] [place] [address] 44993- 8733 August, [facility] [id number] [place] [address] 90287- 9296 August, [place] [id number] [place] [address] 49343- 8851 August, [place] [address] 12931- 5940 August, Paranoid schizophrenia F20.0 [place] [id number] [place] [address] 67592- 5598 August, History of lupus Z87.39 and Chronic pain syndrome G89.4 [place] [address] 81544- 7932 August, [facility] [place] [address] 75895 -9653 August, Seasonal allergic rhinitis, unspecified trigger J30.2 and BMI 45.0-49.9, adult Z68.[address] 30618- 9699 Jul, Schizoaffective disorder, depressive type F25.1 [place] [id number] [place] [address] 89475- 8437 Jul, [place] [address] 78256- 0151 Jul, Hypothyroidism (acquired) E03.9 [place] [address] 60367- 7589 Jul, Chronic obstructive pulmonary disease, unspecified COPD type J44.9 and Type 2 diabetes mellitus without complication, without long-term current use of insulin E11.9 [place] [id number] [place] [address] 08619- 0556 Jul, Paranoid schizophrenia F20.0 [place] [address] 32234- 8218 Jun, Hypothyroidism (acquired) E03.9 and Seasonal allergic rhinitis due to pollen J30.1 [facility] [id number] [place] [address] 71043 -7522 Jun, Shortness of breath at rest R06.02 ; COPD exacerbation J44.1 and BMI 45.0-49.9, adult Z68.42 [facility] [id number] [place] [address] 90563- 8485 Jun, [facility] [id number] [place] [address] 01085- 8287 Jun, Paranoid schizophrenia F20.0 ; Depression with anxiety F41.8 and BMI 45.0-49.9, adult Z68.42 [facility] [id number] [place] [address] 97298- 4286 Jun, Schizoaffective disorder, depressive type F25.1 [facility] [id number] [place] [address] [phone] Jun, Dental caries K02.9 [facility] [address] 11992- 9897 Jun, Paranoid schizophrenia F20.0 [facility] [id number] [place] [address] 05792- 0954 May, Migraine without aura and without status migrainosus, not intractable G43.009 ; DM neuro manif type II E11.49 and Type 2 diabetes mellitus without complication, without long-term current use of insulin E11.9 [facility] [address] [place] [address] 12847- 0727 May, Migraine without aura and without status migrainosus, not intractable G43.009 [facility] [id number] [place] [address] 14099- 5618 May, Depression with anxiety F41.8 [facility] [id number] [place] [address] [id number] May, [facility] [id number] [place] [address] 41901- 4762 May, [facility] [id number] [place] [address] 70480- 9723 May, [place] [id number] [place] [address] 73636- 6288 May, Hypothyroidism (acquired) E03.9 [place] [id number] [place] [address] 68690- 1564 May, Paranoid schizophrenia F20.0 [place] [address] 61026- 0109 May, Type 2 diabetes mellitus without complication, [...] Controlled substance agreement signed Z79.899 [place] [address] 25437- 2194 May, Controlled substance agreement signed Z79.899 [place] [id number] [place] [address] 01528- 1365 Apr, [facility] [id number] [place] [address] [id number] Apr, Dental examination Z01.20 [place] [id number] [place] [address] 26549- 9465 Apr, Paranoid schizophrenia F20.0 [place] [id number] [place] [address] 49722- 1968 Apr, Hypertension, unspecified type I10 [place] [address] 88311- 4392 Apr, Paranoid schizophrenia F20.0 [facility] [id number] [place] [address] 94761- 7621 Apr, [facility] [id number] [place] [address] 36408- 1607 Apr, Tobacco abuse Z72.0 [facility] [id number] [place] [address] 60875- 7290 Apr, [facility] [id number] [place] [address] 10162- 6369 Mar, [facility] [id number] [place] [address] 45285- 0967 Mar, Paranoid schizophrenia F20.0 and BMI 45.0-49.9, adult Z68.42 [place] [id number] [place] [address] 27220- 0654 Mar, Schizoaffective disorder, depressive type F25.1 [facility] [id number] [place] [address] 73970- 9035 Mar, [place] [id number] [place] [address] 96291- 9276 Mar, Hypothyroidism, unspecified type E03.9 [facility] [id number] [place] [address] 54169- 5547 Mar, Schizoaffective disorder, depressive type F25.1 [facility] [id number] [place] [address] 43662 -3021 Feb, Gastroenteritis K52.9 and BMI 45.0-49.9, adult Z68.42 [facility] [id number] [place] [address] 88782- 9454 Feb, [facility] [id number] [place] [address] 18967- 1242 Feb, [facility] [address] 63813- 0926 Feb, [place] [address] 59048- 0462 Feb, [address] 09505- 5850 Feb, Paranoid schizophrenia F20.[address] 61095- 7261 Feb, Gastroesophageal reflux disease without esophagitis K21.9 ; Other seasonal allergic rhinitis J30.2 ; Other allergic rhinitis J30.89 ; Tobacco abuse Z72.0 and BMI 40.0-44.9, adult Z68.[address] 25486- 5826 Feb, Onychomycosis B35.1 ; Callus of foot L84 and DM neuro manif type II E11.[address] 36998- 0550 Jan, Chronic allergic rhinitis J30.[address] 80769- 8008 Jan, [address] 10359- 4180 Jan, Schizoaffective disorder, depressive type F25.[address] 29367- 5927 Jan, [facility] [address] [place] [address] 53637 -7474 Jan, Sore throat J02.9 and Seasonal allergic rhinitis due to other allergic trigger J30.[address] 35645- 6420 Jan, [place] [address] 21812- 7819 Jan, [facility] [address] [place] [address] 08780 -7214 Jan, Chronic allergic rhinitis J30.9 [facility] [id number] [place] [address] 06510- 9039 Dec, Paranoid schizophrenia F20.0 ; Primary insomnia F51.01 and Schizoaffective disorder, depressive type F25.1 [facility] [id number] [place] [address] 94888- 2597 Dec, Chronic pain syndrome G89.4 ; Cervicalgia of occipito- atlanto-axial region M54.2 ; Menopausal syndrome (hot flashes) N95.1 and Encounter for immunization Z23 [place] [address] 90555- 7000 Dec, [place] [id number] [place] [address] 33940- 4803 Dec, [place] [address] 17555- 6870 Dec, Paranoid schizophrenia F20.0 [place] [id number] [place] [address] 10727- 0419 Dec, Schizoaffective disorder, depressive type F25.1 [facility] [id number] [place] [address] 79186- 8669 Nov, Hypothyroidism, unspecified type E03.9 [facility] [id number] [place] [address] 33653 -7348 Nov, Acute seasonal allergic rhinitis due to other allergen J30.89 [facility] [id number] [place] [address] 20370- 1048 Nov, [facility] [id number] [place] [address] 88222- 3072 Nov, Hypothyroidism, unspecified type E03.9 and Other elevated white blood cell (WBC) count D72.828 [place] [id number] [place] [address] 46608- 9312 Nov, Schizoaffective disorder, depressive type F25.1 [place] [address] [address]- 5032 Nov, Paranoid schizophrenia F20.0 [place] [id number] [place] [address] 08583- 8465 Nov, Type 2 diabetes mellitus without complication, without long- term current use of insulin E11.9 ; Morbid obesity due to excess calories E66.01 and Chronic pain syndrome G89.4 [place] [address] [place] [address] 26671- 4267 Oct, Paranoid schizophrenia F20.0 [place] [id number] [place] [address] 70548- 8362 Oct, [place] [id number] [place] [address] 87230- 0893 Oct, Schizoaffective disorder, depressive type F25.1 [place] [address] [place] [address] 29854- 0462 Oct, Hypothyroidism, unspecified type E03.9 and Other elevated white blood cell (WBC) count D72.828 [place] [id number] [place] [address] 50588- 4131 Oct, Morbid obesity due to excess calories E66.01 ; Chronic obstructive pulmonary disease, unspecified COPD type J44.9 ; History of lupus Z87.39 ; Hypothyroidism, unspecified type E03.9 ; Gastroesophageal reflux disease without esophagitis K21.9 ; Primary insomnia F51.01 and Chronic pain syndrome G89.4 [place] [address] [address]- 6209 Sep, [place] [id number] [place] [address] 38067- 9373 Sep, [place] [address] [place] [address] 54421- 8465 Sep, [place] [address] [address]- 5739 Sep, Paranoid schizophrenia F20.0 [facility] [id number] [place] [address] 11518- 4964 Sep, [facility] [id number] [place] [address] 15613- 5243 Sep, Paranoid schizophrenia F20.0 [facility] [id number] [place] [address] 90269- 2275 Sep, [facility] [id number] [place] [address] 47332- 1398 August, Paranoid schizophrenia F20.0 [facility] [id number] [place] [address] 28954- 7905 Jul, [facility] [id number] [place] [address] 61122- 6653 Jul, Type 2 diabetes mellitus without complication, without long- term current use of insulin E11.9 ; Morbid obesity due to excess calories E66.01 ; Depression with anxiety F41.8 ; Hypothyroidism, unspecified type E03.9 ; Seasonal allergic rhinitis due to other allergic trigger J30.89 ; Pain, dental K08.89 and Gastroesophageal reflux disease without esophagitis K21.9 [facility] [address] [place] [address] [id number] Jul, Dental examination Z01.20 [facility] [id number] [place] [address] 49577- 2226 Jul, Paranoid schizophrenia F20.0 [facility] [address] [place] [address] 04887- 6766 13 Jun, 2016 Paranoid schizophrenia F20.0 and Depression with anxiety F41.8 [facility] [address] [place] [address] 52304- 6717 10 Jun, 2016 Paranoid schizophrenia F20.0 and Depression with anxiety F41.8 [facility] [id number] [place] [address] 68579- 4307 Jun, [place] [id number] [place] [address] 76555- 8060 Jun, [facility] [place] [id number] [place] [address] 30925 -2711 Jun, Seasonal allergic rhinitis due to other allergic trigger J30.89 [facility] [place] [address] 24425 -4298 May, Sore throat J02.9 ; Other viral agents as the cause of diseases classified elsewhere B97.89 and Acute upper respiratory infection, unspecified J06.9 [place] [address] 71491- 4304 08 May, 2016 Paranoid schizophrenia F20.0 and Depression with anxiety F41.8 [place] [address] 36192- 3781 Apr, Other seasonal allergic rhinitis J30.2 [place] [id number] [place] [address] 54770- 5536 Apr, Paranoid schizophrenia F20.0 and Depression with anxiety F41.8 [facility] [place] [id number] [place] [address] 11974 -0579 Apr, Bronchitis J40 and Sore throat J02.9 [place] [id number] [place] [address] 19104- 6800 Apr, Type 2 diabetes mellitus without complication, without long- term current use of insulin E11.9 [facility] [place] [id number] [place] [address] 33520 -4787 Apr, Bronchitis J40 [place] [id number] [place] [address] 82579- 2560 Apr, [place] [id number] [place] [address] 29562- 2356 Apr, [place] [id number] [place] [address] 72464- 0436 Mar, Type 2 diabetes mellitus without complication, [...] Other seasonal allergic rhinitis J30.2 [place] [address] 52114- 1931 Mar, Paranoid schizophrenia F20.0 and Depression with anxiety F41.8 [place] [id number] [place] [address] 88388- 4583 Feb, [place] [address] 75546- 9718 Feb, [place] [id number] [place] [address] 28363- 8169 Feb, [place] [address] 95003- 3021 Feb, [place] [id number] [place] [address] 12443- 4722 Feb, Type 2 diabetes mellitus without complication, without long- term current use of insulin E11.9 ; ARIAS on CPAP G47.33 and Preoperative evaluation to rule out surgical contraindication Z01.818 [place] [id number] [place] [address] 04085- 8930 Feb, Paranoid schizophrenia F20.0 and Depression with anxiety F41.8 [place] [id number] [place] [address] 26978- 7620 Jan, [place] [id number] [place] [address] 00773- 5782 Jan, Paranoid schizophrenia F20.0 and Depression with anxiety F41.8 [facility] [address] [facility] [id number] [place] [address]- 7858 17 Jan, 2016 [facility] [address] [facility] [id number] [place] [address] 40229- 3266 14 Jan, 2016 Muscle strain T14.8 [facility] [address] [facility] [id number] [place] [address] Jan, Paranoid schizophrenia F20.0 [facility] [address] [facility] [id number] [address] Jan, [facility] [address] [facility] [id number] [place] [phone]- [phone] Jan, Paranoid schizophrenia F20.0 and Depression with anxiety F41.8 [facility] [address] [facility] [id number][place] [address] Jan, [facility] [address] [facility] [id number] [place] [phone] [address] Jan, [facility] [address] [facility] [id number], [place] [address] 28 Dec, 2015 [facility] [address] [facility] [id number] [place] [id number] 23 Dec, 2015 Paranoid schizophrenia F20.0 [facility] [facility] [address] [facility] [id number] [address] 16 Dec, 2015 Paranoid schizophrenia F20.0 and Depression with anxiety F41.8 [facility] [address] [facility] [id number] [address] Nov, [facility] [address] [facility] [id number][place] [address] 24 Nov, 2015 Paranoid schizophrenia F20.0 [facility] [address] [facility] [id number], [place] [address] Nov, Paranoid schizophrenia F20.0 and Depression with anxiety F41.8 [facility] [id number] [place] [address] 59782- 5189 Nov, Type 2 diabetes mellitus without complication, without long- term current use of insulin E11.9 ; Paranoid schizophrenia F20.0 ; Chronic obstructive pulmonary disease, unspecified COPD type J44.9 ; Morbid obesity due to excess calories E66.01 and Parkinsonian tremor G20 [facility] [address] [place] [id number] [place] [address] 33632- 2321 Nov, [facility] [id number] [place] [address] 86330- 3444 Oct, Paranoid schizophrenia F20.0 [facility] [id number] [place] [address] 55468- 3546 Oct, Paranoid schizophrenia F20.0 [facility] [id number] [place] [address] 22320- 0463 Oct, Paranoid schizophrenia F20.0 and Depression with anxiety F41.8 [facility] [place] [id number] [place] [address] 45157- 6374 Oct, [facility] [place] [id number] [place] [address] 26476- 5216 Oct, Paranoid schizophrenia F20.0 and Depression with anxiety F41.8 [facility] [id number] [place] [address] 97583- 6737 Oct, Nasal sore J34.89 [facility] [id number] [place] [address] 42534- 2098 Oct, Type 2 diabetes mellitus without complication, without long- term current use of insulin E11.9 ; Depression with anxiety F41.8 ; Hypothyroidism, unspecified type E03.9 and History of lupus Z87.39 [facility] [address] [address] 9397 Oct, [facility] [id number] [place] [address] 45189- 7210 01 Raji, 2016 Type 2 diabetes mellitus [...] edema R60.9 and History of lupus Z87.39 [facility] [address] [address] 2594 Feb, [facility] [id number] [place] [address] 90533- 7725 Jan, [facility] [id number] [place] [address] [id number]- 6546 Jan, [facility] [id number] [place] [address] 84222- 5919 Jan, [facility] [id number] [address] 1437 Dec, [facility] [id number] [place] [address] [id number]- 8259 Nov, [facility] [address] [address]- 1446 Nov, [facility] [id number] [place] [address] 84086- 2494 Oct, [facility] [id number] 3144 Oct, [facility] [id number] [place] [address] 65477- 5656 Oct, [facility] [address] 9645 Sep, Allergic rhinitis 477.9 [facility] [address] [id number] [place] [address]- 2102 11 Sep, 2014 Rhinitis, allergic 477.9 [facility] [address] [id number] [place] [address]- 4363 10 Sep, 2014 Rhinitis, allergic 477.9 [facility] [address] [facility] [id number] [place] [address]- 6377 09 Sep, 2014 [facility] [place] [facility] [address] [facility] [id number] [place] [address]- 4726 August, [facility] [place] [facility] [address] [id number] [place] [address]- 3820 August, [facility] [place] [facility] [address] [facility] [id number] [place] [address]- 6356 August, [facility] [place] [facility] [id number] [place] [address]- 7079 Jul, [facility] [address] [id number] [place] [address]- 1259 14 Jul, 2014 [facility] [place] [facility] [address] [facility] [id number] [place] [address]- 1722 Jul, [facility] [place] [facility] [id number] [place] [address]- 9673 16 Jun, 2014 [facility] [place] [facility] [address] [facility] [id number] [place] [address]- 1111 16 Jun, 2014 [facility] [place] [facility] [address] [facility] [id number] [place] [address]- 6017 Jun, [facility] [place] [facility] [address] [facility] [id number] [place] [address]- 9242 Jun, [facility] [place] [facility] [address] [facility] [id number] [place] [address]- 3820 Jun, [facility] [place] [facility] [address] [facility] [id number] [place] [address]- 7434 Jun, [facility] [place] [facility] [address] [facility] [id number] [place] [address]- 3098 Jun, 2014 [facility] [place] [facility] [address] [id number] [place] [address]- 2507 Jun, 2014 [facility] [place] [facility] [address] [id number] [place] [address]- 8746 May, 2014 [facility] [place] [facility] [address] [id number] [place] [address]- 9936 May, 2014 [facility] [place] [facility] [address] [id number] [place] 5490 May, 2014 [facility] [place] [facility] [address] [id number] [place] [address]- 5171 May, 2014 [facility] [place] [facility] [address] [id number] [place] [address]- 8302 Apr, [facility] [place] [facility] [address] [id number] [place] [address]- 0840 Mar, [facility] [place] [facility] [address] [id number] [place] [address]- 3235 Mar, [facility] [place] [facility] [address] [id number] [place] [address]- 8982 Mar, [facility] [place] [facility] [address] [id number] [place] [address]- 5353 Mar, [facility] [place] [facility] [address] [id number] [place] [address]- 4496 Mar, [facility] [place] [facility] [address] [id number] [place] [address]- 3009 Mar, [facility] [place] [facility] [address] [id number] [place]- 9413 Mar, [facility] [place] [facility] [address] [id number] [place] [address]- 0786 Mar, [facility] [place] [facility] [address] [id number] [place] [address]- 1816 Mar, [facility] [place] [facility] [address] [id number] [place] [address]- 3664 Feb, [facility] [place] [facility] [address] [id number] [place] [address]- 5281 Feb, [facility] [place] [facility] [address] [id number] [place] [address]- 7822 Feb, [facility] [place] [facility] [address] [id number] [place] [address]- 6975 Feb, [facility] [place] [facility] [address] [id number] [place] [address]- 1521 Feb, [facility] [place] [facility] [address] [id number] [place] [address]- 6398 Feb, [facility] [place] [facility] [address] [id number] [place] [address]- 1008 Feb, [facility] [place] [facility] [address] [id number] [place] [address]- 9661 Feb, [facility] [place] [facility] [address] [id number] [place] [address]- 6335 Jan, [facility] [place] [facility] [address] [id number] [place] [address]- 1497 Jan, [facility] [place] [facility] [address] [id number] [place] [address]- 8830 Jan, [facility] [place] [facility] [address] [id number] [place] [address]- 0533 16 Jan, 2014 [facility] [place] [facility] [address] [id number] [place] [address]- 1283 15 Jan, 2014 [facility] [place] [facility] [address] [id number] [place] [address]- 7218 15 Jan, 2014 [facility] [place] [facility] [address] [id number] [place] [address]- 5406 14 Jan, 2014 [facility] [place] [facility] [address] [id number] [place] [address]- 2122 14 Jan, 2014 [facility] [place] [facility] [address] [id number] [place] [address]- 5568 14 Jan, 2014 [facility] [place] [facility] [address] [id number] [place] [address]- 4687 14 Jan, 2014 [facility] [place] [facility] [address] [id number] [place] [address]- 9481 18 Dec, 2013 [facility] [place] [facility] [address] [id number] [place] [address]- 2835 18 Dec, 2013 [facility] [place] [facility] [address] [id number] [place] [address]- 2834 Dec, [facility] [place] [facility] [address] [id number] [place] [address]- 5496 Dec, [facility] [place] [facility] [address] [id number] [place] [address]- 6516 Nov, [facility] [place] [facility] [address] [id number] [place] [address]- 2199 Nov, [facility] [place] [facility] [address] [id number] [place] [address]- 3047 Nov, [facility] [place] [facility] [address] [id number] [place] [address]- 9838 Nov, [facility] [place] [facility] [address] [id number] [place] [address]- 1105 Nov, [facility] [place] [facility] [address] [id number] [place] [address]- 2991 Oct, [facility] [place] [facility] [address] [id number] [place] [address]- 0546 Oct, [facility] [place] [facility] [address] [id number] [place] [address]- 7291 Oct, [facility] [place] [facility] [address] [id number] [place] [address]- 7815 Oct, [facility] [place] [facility] [address] [id number] [place] [address]- 8274 Sep, [facility] [place] [facility] [address] [id number] [place] [address]- 3182 Sep, [facility] [place] [facility] [address] [id number] [place] [address]- 3936 Sep, [facility] [place] [facility] [address] [id number] [place] [address]- 6994 Sep, [facility] [place] [facility] [address] [id number] [place] [address]- 9712 Sep, [facility] [place] [facility] [address] [id number] [place] [address]- 6927 Sep, [facility] [place] [facility] [address] [id number] [place] [address]- 3928 Sep, [facility] [place] [facility] [address] [id number] [place] [address]- 6191 Sep, [facility] [address] [id number] [place] [address]- 6676 August, [facility] [place] [facility] [address] [id number] [place] [address]- 3773 August, [facility] [place] [facility] [address] [id number] [place] [address]- 3653 August, [facility] [place] [facility] [address] [id number] [place] [address]- 0980 August, [facility] [place] [facility] [address] [id number] [place] [address]- 8687 August, [facility] [place] [facility] [address] [id number] [place] [address]- 5773 August, [facility] [place] [facility] [address] [id number] [place] [address]- 3079 August, [facility] [place] [facility] [address] [id number] [place] [address]- 0541 Jul, [facility] [place] [facility] [address] [id number] [place] [address]- 8582 Jul, [facility] [place] [facility] [address] [id number] [place] [address]- 1395 Jul, [facility] [place] [facility] [address] [id number] [place] [address]- 1222 Jul, [facility] [place] [facility] [address] [id number] [place] [address]- 3606 Jul, [facility] [place] [facility] [address] [id number] [place] [address]- 3280 Jul, [facility] [place] [facility] [address] [id number] [place] [address]- 5472 Jul, [facility] [place] [facility] [address] [id number] [place] [address]- 1204 Jul, [facility] [place] [facility] [address] [id number] [place] [address]- 5568 Jul, [facility] [place] [facility] [address] [id number] [place] [address]- 4493 Jul, [facility] [place] [facility] [address] [id number] [place] [address]- 0651 Jul, [facility] [place] [facility] [address] [id number] [place] [address]- 5097 Jul, [facility] [place] [facility] [address] [id number] [place] [address]- 8476 Jun, [facility] [place] [facility] [address] [id number] [place] [address]- 4218 Jun, [facility] [place] [facility] [address] [id number] [place] [address]- 1435 Jun, [facility] [place] [facility] [address] [id number] [place] 4059 Jun, [facility] [place] [facility] [address] [id number] [place] [address]- 9429 Jun, [facility] [place] [facility] [address] [id number] [place] [address]- 4715 May, [facility] [place] [facility] [address] [id number] [place] 9096 May, 2013 [facility] [place] [facility] [address] [id number] [place] [address]- 3386 May, 2013 [facility] [place] [facility] [address] [id number] [place] [address]- 0081 May, [facility] [place] [facility] [address] [id number] [place] [address]- 4891 May, [facility] [place] [facility] [address] [id number] [place] [address]- 9278 May, [facility] [place] [facility] [address] [facility] [id number] [place] [address]- 4504 May, [facility] [place] [facility] [address] [id number] [place] [address]- 9677 May, [facility] [place] [facility] [address] [facility] [id number] [place] [address]- 7218 Mar, [facility] [place] [facility] [address] [facility] [id number] [place] [address]- 4647 Mar, [facility] [place] [facility] [address] [facility] [id number] [place] [address]- 7352 Mar, [facility] [place] [facility] [address] [id number] [place] 1692 Mar, [facility] [place] [facility] [address] [id number] [place] [address]- 1301 Mar, [facility] [place] [facility] [address] [id number] [place] [address]- 2446 Mar, [facility] [place] [facility] [address] [facility] [id number] [place] 1548 Feb, [facility] [place] [facility] [address] [id number] [place] [address]- 1527 15 Feb, 2013 [facility] [place] [facility] [address] [id number] [place] [address]- 1454 Jan, [facility] [place] [facility] [address] [id number] [place] [address]- 6491 Jan, [facility] [place] [facility] [address] [id number] [place] [address]- 7893 Jan, [facility] [place] [facility] [address] [id number] [place] [address]- 3928 Jan, [facility] [place] [facility] [address] [id number] [place] [address]- 0752 Jan, [facility] [place] [facility] [address] [id number] [place] [address]- 1459 Jan, [facility] [place] [facility] [address] [id number] [place] [address]- 4331 Jan, [facility] [place] [facility] [address] [id number] [place] [address]- 1467 Jan, [facility] [place] [facility] [address] [id number] [address]- 3023 Jan, [facility] [place] [facility] [address] [id number] [place] [address]- 3662 Jan, [facility] [place] [facility] [address] [id number] [address]- 2381 Dec, [facility] [place] [facility] [address] [id number] [place] [address]- 0829 Nov, [facility] [place] [facility] [address] [id number] [place] [address]- 8809 Nov, [facility] [place] [facility] [address] [id number] [place] [address]- 5203 Nov, [facility] [place] [facility] [address] [id number] [address]- 4435 Oct, [facility] [address] [address]- 2214 Oct, [facility] [address], [place] [address]- 8129 August, [facility] [address] [address]- 4380 Apr, [facility] [address] [address]- 4532 Apr, [facility] [address] [address]- 7536 Feb, [facility] [address], [place] [address]- 7108 Feb, [facility] [address] [address]- 7938 Dec, [facility] [address] [address]- 6870 Dec, [facility] [address] [address]- 6877 Oct, [facility] [address] [address]- 7205 Oct, [facility] [address] [address]- 5504 Oct, [facility] [address] [id number] [address]- 7550 Jul, IMMUNIZATIONS No Known Immunizations SOCIAL HISTORY Never Assessed REASON FOR VISIT Glucometer PLAN OF CARE VITAL SIGNS MEDICATIONS Medication Instructions Dosage Frequency Start Date End Date Duration Status True Metrix Meter w/Device as directed Oct, Active True Metrix Blood Glucose Test - In Vitro 4 times a day as directed Oct, 30 days Active RESULTS No Results PROCEDURES No [...] last one in [facility] 4 years ago
--- OUTSIDE RECORDS SUMMARY | 2018-09-02 13:33 | XMS REPORT ---
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 [employer] Name Role Phone SOTO STRICKLAND Unavailable PROBLEMS Type Condition ICD9-CM Code HUZ84-HY Code Onset Dates Condition Status SNOMED Code Problem OAB (overactive bladder) N32.81 Active 021544808 Problem Depression with anxiety F41.8 Active 879730952 Problem Other seasonal allergic rhinitis J30.2 Active 405075712 Problem Chronic obstructive pulmonary disease, unspecified COPD type J44.9 Active 50740362 Problem Tobacco abuse Z72.0 Active 535405682 Problem Morbid obesity due to excess calories E66.01 Active 850081360 Problem Dyslipidemia E78.5 Active 589210678 Problem Hypothyroidism (acquired) E03.9 Active 405204006 Problem Essential hypertension I10 Active 01404703 Problem Diabetic polyneuropathy associated with type 2 diabetes mellitus E11.42 Active 818914418 Problem Type 2 diabetes mellitus with diabetic neuropathic arthropathy, 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 Active 306350088 Problem Type 2 diabetes mellitus without complication, without long-term current use of insulin E11.9 Active 604369244 Problem Paranoid schizophrenia F20.0 Active 27319286 Problem Chronic pain syndrome G89.4 Active 680961824 Problem Migraine without aura and without status migrainosus, not intractable G43.009 Active 417468135 Problem Gastroesophageal reflux disease, esophagitis presence not specified K21.9 Active 401543121 Problem Seasonal allergic rhinitis due to pollen J30.1 Active 54104156 Problem COPD exacerbation J44.1 Active 185210582 Problem Seasonal allergic rhinitis due to other allergic trigger J30.89 Active 047673657 Problem Schizoaffective disorder, depressive type F25.1 Active 92200727 Problem History of lupus Z87.39 Active 477971983 Problem Gastroesophageal reflux disease without esophagitis K21.9 Active 473962192 Problem Menopausal syndrome (hot flashes) N95.1 Active 890929273 Problem Other allergic rhinitis J30.89 Active 387564020 Problem Primary insomnia F51.01 Active 2578045 Problem DM neuro manif type II E11.49 Active 16171809 ALLERGIES Substance Reaction Event Type Date Status Sulfamethoxazole-Trimethoprim Unknown Drug Allergy Oct, Active Penicillin V Potassium Unknown Drug Allergy Oct, Active ENCOUNTERS Encounter Location Date Diagnosis [facility] [id number] [place] [address] 34772- 7028 Jan, [facility] [id number] [place] [address] 64480- 6778 Jan, [facility] [id number] [place] [address] 33090- 0991 Jan, [facility] [id number] [place] [address] 20261- 3441 Dec, [facility] [id number] [place] [address] 98703- 3602 Dec, Schizoaffective disorder, depressive type F25.1 [facility] [id number] [place] [address] 65081- 6851 Dec, [facility] [id number] [place] [address] 21084- 5336 Nov, Schizoaffective disorder, depressive type F25.1 and BMI 45.0 -49.9, adult Z68.42 [facility] [id number] [place] [address] 04046- 0515 Nov, [facility] [id number] [place] [address] 30103- 2743 Nov, [facility] [id number] [place] [address] 36017- 4854 Nov, Schizoaffective disorder, depressive type F25.1 [facility] [id number] [place] [address] 69689- 7058 Nov, Well woman exam Z01.419 ; BMI 45.0-49.9, adult Z68.42 ; Screening breast examination Z12.31 and Dietary counseling and surveillance Z71.3 [place] [address] [place] [address] 56475- 7423 Nov, Paranoid schizophrenia F20.0 [place] [address] [place] [address] 94757- 7807 09 Nov, 2017 Gastroesophageal reflux disease, esophagitis presence not specified K21.9 [place] [id number] [place] [address] 19082- 0536 Oct, Paranoid schizophrenia F20.[id number] [place] [address] Oct Chronic pain syndrome G89.4 and Schizoaffective disorder, depressive type F25.1 [place] [address] [place] [address] 34461- 7370 Oct, Chronic pain syndrome G89.4 and Schizoaffective disorder, depressive type F25.1 [place] [address] [place] [address] 41550- 0028 Oct, Type 2 diabetes mellitus without complication, without long- term current use of insulin E11.9 [place] [address] [place] [address] 29924- 7080 12 Oct, 2017 Essential hypertension I10 and DM neuro manif type II E11.49 [place] [address] [place] [address] 58917- 5088 Oct, [place] [address] [place] [address] 42846- 6240 Oct, Schizoaffective disorder, depressive type F25.1 and BMI 45.0 -49.9, adult Z68.42 [place] [address] [address] 6671 Oct, [place] [address] [place] [address] 26311- 7688 Oct, Paranoid schizophrenia F20.0 [facility] [address] [address] 2836 10 Oct, 2017 Type 2 diabetes mellitus with diabetic neuropathic arthropathy, 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 ; Essential hypertension I10 ; Hypothyroidism (acquired) E03.9 ; Chronic obstructive pulmonary disease, unspecified COPD type J44.9 and Diabetic polyneuropathy associated with type 2 diabetes mellitus E11.42 [facility] [id number] [place] [address] 88356- 4303 Sep, Paranoid schizophrenia F20.0 [facility] [id number] [place] [address] 82371- 5767 Sep, Paranoid schizophrenia F20.0 and BMI 45.0-49.9, adult Z68.42 [facility] [id number] [place] [address] 21417- 0973 Sep, Schizoaffective disorder, depressive type F25.1 [facility] [id number] [place] [address] 23404- 5944 Sep, [facility] [id number] [place] [address] 21085- 1061 Sep, Paranoid schizophrenia F20.0 [facility] [address] [place] [address] 53553- 4605 Sep, [facility] [address] [place] [address] 55637- 4682 Sep, Hypothyroidism (acquired) E03.9 [facility] [address] [address]- 6617 Sep, [facility] [id number] [place] [address] 77771- 8046 August, Schizoaffective disorder, depressive type F25.1 [facility] [address] [address] 2524 August, [facility] [id number] [place] [address] 41213- 8177 August, [facility] [id number] [place] [address] 97688- 4945 August, [facility] [address] 86062- 9478 August, Paranoid schizophrenia F20.0 [place] [address] 18362- 0450 August, History of lupus Z87.39 and Chronic pain syndrome G89.4 [place] [address] 65450- 2249 August, [facility] [address] 71069 -0516 August, Seasonal allergic rhinitis, unspecified trigger J30.2 and BMI 45.0-49.9, adult Z68.42 [place] [address] 80714- 1976 Jul, Schizoaffective disorder, depressive type F25.1 [place] [address] 98415- 5476 Jul, [place] [id number] [place] [address] 43855- 8420 Jul, Hypothyroidism (acquired) E03.9 [place] [id number] [place] [address] 34464- 5340 Jul, Chronic obstructive pulmonary disease, unspecified COPD type J44.9 and Type 2 diabetes mellitus without complication, without long-term current use of insulin E11.9 [place] [id number] [place] [address] 19229- 3574 Jul, Paranoid schizophrenia F20.0 [place] [id number] [place] [address] 55859- 3577 Jun, Hypothyroidism (acquired) E03.9 and Seasonal allergic rhinitis due to pollen J30.1 [facility] [id number] [place] [address] 22935 -4150 Jun, Shortness of breath at rest R06.02 ; COPD exacerbation J44.1 and BMI 45.0-49.9, adult Z68.42 [facility] [id number] [place] [address] 62339- 2930 Jun, [facility] [address] 19276- 6855 Jun, Paranoid schizophrenia F20.0 ; Depression with anxiety F41.8 and BMI 45.0-49.9, adult Z68.42 [facility] [address] 89685- 2383 Jun, Schizoaffective disorder, depressive type F25.1 [facility] [address] [id number] Jun, Dental caries K02.9 [facility] [id number] [place] [address] 53510- 1787 Jun, Paranoid schizophrenia F20.0 [facility] [address] 17288- 8595 May, Migraine without aura and without status migrainosus, not intractable G43.009 ; DM neuro manif type II E11.49 and Type 2 diabetes mellitus without complication, without long-term current use of insulin E11.9 [facility] [id number] [place] [address] 08899- 2889 May, Migraine without aura and without status migrainosus, not intractable G43.009 [facility] [address] 17965- 9869 May, Depression with anxiety F41.8 [facility] [id number] [place] [address] [id number] May, [facility] [address] 36467- 3627 May, [place] [id number] [place] [address] 30123- 5435 May, [place] [id number] [place] [address] 66504- 9541 May, Hypothyroidism (acquired) E03.9 [place] [address] 04580- 5683 May, Paranoid schizophrenia F20.0 [place] [address] 19244- 4086 08 May, 2017 Type 2 diabetes mellitus [...] N32.81 and Controlled substance agreement signed Z79.899 [place] [id number] [place] [address] 31342- 8357 02 May, 2017 Controlled substance agreement signed Z79.899 [place] [id number] [place] [address] 38205- 7199 Apr, [facility] [id number] [place] [address] [id number] Apr, Dental examination Z01.20 [place] [address] 55803- 3730 Apr, Paranoid schizophrenia F20.0 [place] [id number] [place] [address] 60306- 2016 Apr, Hypertension, unspecified type I10 [facility] [id number] [place] [address] 17596- 9651 Apr, Paranoid schizophrenia F20.0 [facility] [id number] [place] [address] 76759- 4449 Apr, [facility] [id number] [place] [address] 55388- 1711 Apr, Tobacco abuse Z72.0 [facility] [id number] [place] [address] 53179- 7032 Apr, [facility] [id number] [place] [address] 14247- 9022 Mar, [facility] [id number] [place] [address] 89042- 2928 Mar, Paranoid schizophrenia F20.0 and BMI 45.0-49.9, adult Z68.42 [facility] [id number] [place] [address] 10419- 6848 Mar, Schizoaffective disorder, depressive type F25.1 [facility] [id number] [place] [address] 76858- 2820 Mar, [facility] [id number] [place] [address] 93333- 4393 Mar, Hypothyroidism, unspecified type E03.9 [facility] [id number] [place] [address] 52515- 0676 Mar, Schizoaffective disorder, depressive type F25.1 [facility] [id number] [place] [address] 57169 -4756 Feb, Gastroenteritis K52.9 and BMI 45.0-49.9, adult Z68.42 [facility] [id number] [place] [address] 46960- 6829 Feb, [facility] [id number] [place] [address] 02241- 7958 Feb, [facility] [id number] [place] [address] 56236- 0338 Feb, [place] [address] 08889- 4525 Feb, [place] [address] 34531- 9417 Feb, Paranoid schizophrenia F20.0 [place] [address] 77915- 3751 Feb, Gastroesophageal reflux disease without esophagitis K21.9 ; Other seasonal allergic rhinitis J30.2 ; Other allergic rhinitis J30.89 ; Tobacco abuse Z72.0 and BMI 40.0-44.9, adult Z68.41 [place] [address] 62633- 6469 Feb, Onychomycosis B35.1 ; Callus of foot L84 and DM neuro manif type II E11.49 [place] [address] 43557- 7348 Jan, Chronic allergic rhinitis J30.9 [place] [address] 97485- 0807 Jan, [place] [address] 18590- 5121 Jan, Schizoaffective disorder, depressive type F25.1 [place] [address] 04138- 3233 Jan, [facility] [address] 32013 -4329 07 Jan, 2017 Sore throat J02.9 and Seasonal allergic rhinitis due to other allergic trigger J30.89 [facility] [address] 63237- 2059 04 Jan, 2017 [facility] [address] 13268- 3869 Jan, [facility] [address] 76965 -6877 Jan, Chronic allergic rhinitis J30.9 [facility] [id number] [place] [address] 03025- 8668 Dec, Paranoid schizophrenia F20.0 ; Primary insomnia F51.01 and Schizoaffective disorder, depressive type F25.1 [facility] [address] 98384- 9340 Dec, Chronic pain syndrome G89.4 ; Cervicalgia of occipito- atlanto-axial region M54.2 ; Menopausal syndrome (hot flashes) N95.1 and Encounter for immunization Z23 [facility] [address] 62689- 5878 14 Dec, 2016 [place] [address] 17268- 5288 Dec, [place] [address] 78291- 9133 08 Dec, 2016 Paranoid schizophrenia F20.0 [place] [address] 04181- 7511 Dec, Schizoaffective disorder, depressive type F25.1 [facility] [address] 73194- 9180 Nov, Hypothyroidism, unspecified type E03.9 [facility] [id number] [place] [address] 33212 -4421 Nov, Acute seasonal allergic rhinitis due to other allergen J30.89 [place] [address] 42970- 0980 Nov, [place] [address] 00280- 7704 Nov, Hypothyroidism, unspecified type E03.9 and Other elevated white blood cell (WBC) count D72.828 [place] [address] [place] [address] 83030- 5796 Nov, Schizoaffective disorder, depressive type F25.1 [place] [id number] [place] [address] 80992- 7544 Nov, Paranoid schizophrenia F20.0 [place] [id number] [place] [address] 06494- 4163 Nov, Type 2 diabetes mellitus without complication, without long- term current use of insulin E11.9 ; Morbid obesity due to excess calories E66.01 and Chronic pain syndrome G89.4 [place] [id number] [place] [address] 23293- 6553 Oct, Paranoid schizophrenia F20.0 [place] [id number] [place] [address] 22748- 3329 Oct, [place] [id number] [place] [address] 29740- 3650 Oct, Schizoaffective disorder, depressive type F25.1 [place] [id number] [place] [address] 69605- 3526 Oct, Hypothyroidism, unspecified type E03.9 and Other elevated white blood cell (WBC) count D72.828 [place] [address] [place] [address] 12628- 3418 Oct, Morbid obesity due to excess calories E66.01 ; Chronic obstructive pulmonary disease, unspecified COPD type J44.9 ; History of lupus Z87.39 ; Hypothyroidism, unspecified type E03.9 ; Gastroesophageal reflux disease without esophagitis K21.9 ; Primary insomnia F51.01 and Chronic pain syndrome G89.4 [place] [address] [place] [address] 03556- 3778 Sep, [place] [id number] [place] [address] 79629- 6711 Sep, [place] [address] [address]- 3078 Sep, [facility] [address] [address]- 4647 Sep, Paranoid schizophrenia F20.0 [facility] [address], [place] [address]- 3075 Sep, [facility] [id number] [place] [address] 89223- 1896 Sep, Paranoid schizophrenia F20.0 [facility] [address], [place] [address]- 9613 Sep, [facility] [address] [place] [address] 70840- 9417 August, Paranoid schizophrenia F20.0 [facility] [address] [address]- 1892 Jul, [facility] [address] [place] [address] 72346- 7358 Jul, Type 2 diabetes mellitus without complication, without long- term current use of insulin E11.9 ; Morbid obesity due to excess calories E66.01 ; Depression with anxiety F41.8 ; Hypothyroidism, unspecified type E03.9 ; Seasonal allergic rhinitis due to other allergic trigger J30.89 ; Pain, dental K08.89 and Gastroesophageal reflux disease without esophagitis K21.9 [facility] [address] [id number] Jul, Dental examination Z01.20 [facility] [id number] [address]- 6714 07 Jul, 2016 Paranoid schizophrenia F20.0 [facility] [address], [place] [address]- 6912 13 Jun, 2016 Paranoid schizophrenia F20.0 and Depression with anxiety F41.8 [facility] [address] [address]- 9360 Jun, Paranoid schizophrenia F20.0 and Depression with anxiety F41.8 [place] [id number] [place] [address] 42199- 6336 Jun, [place] [id number] [place] [address] 46671- 9674 Jun, [facility] [place] [id number] [place] [address] 03364 -4895 Jun, Seasonal allergic rhinitis due to other allergic trigger J30.89 [facility] [place] [id number] [place] [address] 34848 -0718 May, Sore throat J02.9 ; Other viral agents as the cause of diseases classified elsewhere B97.89 and Acute upper respiratory infection, unspecified J06.9 [place] [id number] [place] [address] 11854- 1061 08 May, 2016 Paranoid schizophrenia F20.0 and Depression with anxiety F41.8 [place] [id number] [place] [address] 29999- 3351 Apr, Other seasonal allergic rhinitis J30.2 [place] [id number] [place] [address] 27999- 6762 Apr, Paranoid schizophrenia F20.0 and Depression with anxiety F41.8 [facility] [id number] [place] [address] 48017 -3386 Apr, Bronchitis J40 and Sore throat J02.9 [place] [id number] [place] [address] 59350- 0186 Apr, Type 2 diabetes mellitus without complication, without long- term current use of insulin E11.9 [facility] [id number] [place] [address] 09705 -1015 Apr, Bronchitis J40 [place] [id number] [place] [address] 13202- 4558 Apr, [place] [address] [address] [address]- 4469 Apr, [place] [id number] [place] [address] 92383- 4546 Mar, Type 2 diabetes mellitus without complication, [...] R60.9 and Other seasonal allergic rhinitis J30.2 [place] [address] 99644- 4670 Mar, Paranoid schizophrenia F20.0 and Depression with anxiety F41.8 [place] [address] 46241- 4129 Feb, [place] [address] 78594- 2214 Feb, [place] [address] 62413- 1644 Feb, [place] [id number] [place] [address] 41995- 6137 Feb, [place] [address] 84973- 1993 Feb, Type 2 diabetes mellitus without complication, without long- term current use of insulin E11.9 ; ARIAS on CPAP G47.33 and Preoperative evaluation to rule out surgical contraindication Z01.818 [place] [address] 69601- 0073 Feb, Paranoid schizophrenia F20.0 and Depression with anxiety F41.8 [place] [address] 96206- 8419 Jan, [place] [address] [place] [address]- 1379 18 Jan, 2016 Paranoid schizophrenia F20.0 and Depression with anxiety F41.8 [facility] [id number] [address]- 1030 17 Jan, 2016 [facility] [id number], [place] [address]- 8997 14 Jan, 2016 Muscle strain T14.8 [facility] [id number] [place] [address] 29367- 9190 10 Jan, 2016 Paranoid schizophrenia F20.0 [facility] [id number] [address]- 6147 07 Jan, 2016 [facility] [id number] [place] [address] 96553- 6998 05 Jan, 2016 Paranoid schizophrenia F20.0 and Depression with anxiety F41.8 [facility] [id number] [place] [address] 28456- 6151 05 Jan, 2016 [facility] [id number] [address]- 1496 Jan, [facility] [address] [place] [address] 30127- 7222 28 Dec, 2015 [facility] [id number] [address]- 0634 23 Dec, 2015 Paranoid schizophrenia F20.0 [facility] [id number] [address]- 0938 16 Dec, 2015 Paranoid schizophrenia F20.0 and Depression with anxiety F41.8 [facility] [id number] [address]- 1337 31 Nov, 2015 [facility] [id number] [address]- 9591 24 Nov, 2015 Paranoid schizophrenia F20.0 [facility] [id number] [address]- 7961 Nov, Paranoid schizophrenia F20.0 and Depression with anxiety F41.8 [place] [id number] [place] [phone] Nov, Type 2 diabetes mellitus without complication, without long- term current use of insulin E11.9 ; Paranoid schizophrenia F20.0 ; Chronic obstructive pulmonary disease, unspecified COPD type J44.9 ; Morbid obesity due to excess calories E66.01 and Parkinsonian tremor G20 [address] [facility] [id number] [place] [address]89- [address] Nov, [facility] [id number] [place] [address] 88073- 2444 Oct, Paranoid schizophrenia F20.0 [facility] [id number] [place] [address] 73410- 8552 Oct, Paranoid schizophrenia F20.0 [facility] [id number] [place] [address] [id number]- 6606 Oct, Paranoid schizophrenia F20.0 and Depression with anxiety F41.8 [facility] [place] [id number] [place] [address]23- 9770 Oct, [facility] [id number] [place] [address] 01837- 8883 Oct, Paranoid schizophrenia F20.0 and Depression with anxiety F41.8 [facility] [id number] [place] [address] 68837- 9697 Oct, Nasal sore J34.89 [facility] [id number] [place] [address] 02108- 2265 Oct, Type 2 diabetes mellitus without complication, without long- term current use of insulin E11.9 ; Depression with anxiety F41.8 ; Hypothyroidism, unspecified type E03.9 and History of lupus Z87.39 [facility] [id number] [place] [address] [address] Oct, [place] [id number] [address] Oct, 2016 Type 2 diabetes mellitus without [...] edema R60.9 and History of lupus Z87.39 [facility] [id number] [place] [address] 64498- 9606 Feb, [facility] [id number] [place] [address] 21069- 5226 Jan, [facility] [id number] [place] [address] 79573- 6216 Jan, [facility] [id number] [place] [address] 24619- 9417 Jan, [facility] [id number] [place] [address] 97738- 8456 Dec, [facility] [id number] [place] [address] 79105- 8176 Nov, [facility] [id number] [place] [address] 03470- 9306 Nov, [facility] [id number] [place] [address] 74016- 8714 Oct, [facility] [id number] [place] [address] 62940- 3336 Oct, [facility] [id number] [place] [address] 81847- 2546 Oct, [facility] [id number] [place] [address] 33224- 5044 Sep, Allergic rhinitis 477.9 [facility] [address] [facility] [id number] [place] [address] 8110 11 Sep, 2014 Rhinitis, allergic 477.9 [facility] [address] [facility] [id number] [place] [address]- 3883 10 Sep, 2014 Rhinitis, allergic 477.9 [facility] [address] [place] [address] 2262 Sep, [facility] [address] [facility] [id number] [place] [address]- 5314 August, [facility] [address] [place] [address]- 9128 August, [facility] [address] [address] 4134 August, [facility] [address] [address]- 1133 Jul, [facility] [id number] [place] [address] 7079 Jul, [facility] [address] [address]- 1109 Jul, [facility] [address] [address]- 6280 16 Jun, 2014 [facility] [id number] [address] 0067 16 Jun, 2014 [facility] [id number] [address] 9339 Jun, [facility] [address] [id number] [place] [address]- 1339 Jun, [facility] [id number] [address] 4416 Jun, [facility] [address] [address]- 0218 Jun, [facility] [place] [facility] [address] [id number] [place] [address]- 0263 Jun, [facility] [place] [facility] [address] [id number] [place] [address]- 9706 Jun, [facility] [place] [facility] [address] [id number] [place] [address]- 5296 May, 2014 [facility] [place] [facility] [address] [id number] [place] [address]- 4834 May, 2014 [facility] [place] [facility] [address] [id number] [place] [address]- 8988 May, 2014 [facility] [place] [facility] [address] [facility] [id number] [place] [address]- 2863 May, 2014 [facility] [place] [facility] [address] [facility] [id number] [place] [address]- 2631 Apr, [facility] [place] [facility] [address] [id number] [place] [address]- 3922 Mar, [facility] [place] [facility] [address] [id number] [place] [address]- 1695 Mar, [facility] [place] [facility] [address] [facility] [id number] [place] [address]- 9285 Mar, [facility] [place] [facility] [address] [facility] [id number] [place] [address]- 2111 Mar, [facility] [place] [facility] [address] [id number] [place] [address]- 6084 Mar, [facility] [place] [facility] [address] [id number] [place] 9598 Mar, [facility] [place] [facility] [address] [facility] [id number] [place] 7967 Mar, [facility] [place] [facility] [address] [facility] [id number] [place] [address]- 4329 Mar, [facility] [place] [facility] [address] [id number] [place] [address]- 7866 Mar, [facility] [place] [facility] [address] [id number] [place] [address]- 4990 Feb, [facility] [place] [facility] [address] [id number] [place] [address]- 0541 Feb, [facility] [place] [facility] [address] [id number] [place] [address]- 6520 Feb, [facility] [place] [facility] [address] [id number] [place] [address]- 1960 Feb, [facility] [place] [facility] [address] [id number] [place] [address]- 4431 Feb, [facility] [place] [facility] [address] [id number] [place] [address]- 9143 Feb, [facility] [place] [facility] [address] [id number] [place] [address]- 1116 Feb, [facility] [place] [facility] [address] [id number] [place] [address]- 4615 Feb, [facility] [place] [facility] [address] [id number] [place] [address]- 3159 Jan, [facility] [place] [facility] [address] [id number] [place] [address]- 3765 Jan, [facility] [place] [facility] [address] [id number] [place] [address]- 6711 16 Jan, 2014 [facility] [place] [facility] [address] [id number] [place] [address]- 9318 16 Jan, 2014 [facility] [place] [facility] [address] [id number] [place] [address]- 2718 15 Jan, 2014 [facility] [place] [facility] [address] [id number] [place] [address]- 5577 15 Jan, 2014 [facility] [place] [facility] [address] [id number] [place] [address]- 8822 14 Jan, 2014 [facility] [place] [facility] [address] [id number] [place] [address]- 0213 14 Jan, 2014 [facility] [place] [facility] [address] [id number] [place] [address]- 8782 14 Jan, 2014 [facility] [place] [facility] [address] [id number] [place] [address]- 4309 14 Jan, 2014 [facility] [place] [facility] [address] [id number] [place] [address]- 1945 18 Dec, 2013 [facility] [place] [facility] [address] [id number] [place] [address]- 2119 18 Dec, 2013 [facility] [place] [facility] [address] [id number] [place] [address]- 0633 10 Dec, 2013 [facility] [place] [facility] [address] [id number] [place] [address]- 7379 10 Dec, 2013 [facility] [place] [facility] [address] [id number] [place] [address]- 3864 Nov, [facility] [place] [facility] [address] [id number] [place] [address]- 1995 Nov, [facility] [place] [facility] [address] [id number] [place] [address]- 6999 Nov, [facility] [place] [facility] [address] [id number] [place] [address]- 0001 Nov, [facility] [place] [facility] [address] [id number] [address]- 0790 Nov, [facility] [place] [facility] [address] [id number] [place] [address]- 3150 Oct, [facility] [place] [facility] [address] [id number] [place] [address]- 9465 Oct, [facility] [place] [facility] [address] [id number] [place] [address]- 7096 Oct, [facility] [place] [facility] [address] [id number] [place] [address]- 3967 Oct, [facility] [place] [facility] [address] [id number] [place] [address]- 4756 Sep, [facility] [place] [facility] [address] [id number] [place] [address]- 4471 Sep, [facility] [place] [facility] [address] [id number] [place] [address]- 8568 Sep, [facility] [place] [facility] [address] [id number] [place] [address]- 8807 Sep, [facility] [place] [facility] [address] [id number] [place] [address]- 2366 Sep, [facility] [place] [facility] [address] [id number] [place] [address]- 6328 Sep, [facility] [place] [facility] [address] [id number] [place] [address]- 1660 Sep, [facility] [place] [facility] [address] [id number] [place] [address]- 2486 Sep, [facility] [place] [facility] [address] [id number] [place] [address]- 2755 August, [facility] [place] [facility] [address] [id number] [place] [address]- 7765 August, [facility] [place] [facility] [address] [id number] [place] [address]- 3119 August, [facility] [place] [facility] [address] [id number] [place] [address]- 7001 August, [facility] [place] [facility] [address] [id number] [place] [address]- 6130 August, [facility] [place] [facility] [address] [id number] [place] [address]- 5461 August, [facility] [place] [facility] [address] [id number] [place] [address]- 9488 August, [facility] [place] [facility] [address] [id number] [place] [address]- 6481 Jul, [facility] [place] [facility] [address] [id number] [place] [address]- 9696 Jul, [facility] [place] [facility] [address] [id number] [place] 8954 Jul, [facility] [place] [facility] [address] [id number] [place] [address]- 3992 Jul, [facility] [place] [facility] [address] [id number] [place] [address]- 7265 Jul, [facility] [place] [facility] [address] [id number] [place] [address]- 8077 Jul, [facility] [place] [facility] [address] [id number] [place] [address]- 4432 Jul, [facility] [place] [facility] [address] [id number] [place] [address]- 9008 Jul, [facility] [place] [facility] [address] [id number] [place] [address]- 3627 Jul, [facility] [place] [facility] [address] [id number] [place] [address]- 5005 Jul, [facility] [place] [facility] [address] [id number] [place] [address]- 1332 Jul, [facility] [place] [facility] [address] [id number] [place] [address]- 7503 Jul, [facility] [place] [facility] [address] [id number] [place] 2765 Jun, [facility] [place] [facility] [address] [id number] [place] 7758 Jun, [facility] [place] [facility] [address] [id number] [place] [address]- 6406 Jun, [facility] [place] [facility] [address] [id number] [place] [address]- 2938 Jun, [facility] [place] [facility] [address] [id number] [place] [address]- 6438 Jun, [facility] [place] [facility] [address] [id number] [place] [address]- 6213 May, [facility] [place] [facility] [address] [id number] [place] [address]- 9973 May, [facility] [place] [facility] [address] [id number] [place] [address]- 4458 May, [facility] [place] [facility] [address] [id number] [place] [address]- 5937 May, [facility] [place] [facility] [address] [id number] [place] [address]- 9364 May, [facility] [place] [facility] [address] [id number] [place] [address]- 9006 May, [facility] [place] [facility] [address] [id number] [place] [address]- 7639 May, [facility] [place] [facility] [address] [id number] [place] [address]- 5532 May, [facility] [place] [facility] [address] [facility] [id number] [place] [address]- 8562 Mar, [facility] [place] [facility] [address] [id number] [place] [address]- 1549 Mar, [facility] [place] [facility] [address] [id number] [place] [address]- 2999 Mar, [facility] [place] [facility] [address] [id number] [place] [address]- 9478 Mar, [facility] [place] [facility] [address] [facility] [id number] [place] [address]- 2983 Mar, [facility] [place] [facility] [address] [id number] [place] [address]- 0344 Mar, [facility] [place] [facility] [address] [id number] [place] [address]- 9702 Feb, [facility] [place] [facility] [address] [id number] [place] [address]- 8585 Feb, [facility] [place] [facility] [address] [id number] [place] [address]- 2976 Jan, [facility] [place] [facility] [address] [id number] [place] [address]- 5742 Jan, [facility] [place] [facility] [address] [id number] [place] [address]- 5332 Jan, [facility] [place] [facility] [address] [id number] [place] [address]- 5776 Jan, [facility] [place] [facility] [address] [id number] [place] [address]- 7643 Jan, [facility] [place] [facility] [address] [id number] [place] [address]- 8280 Jan, [facility] [place] [facility] [address] [id number] [place] [address]- 5722 Jan, [facility] [place] [facility] [address] [id number] [place] [address]- 7290 Jan, [facility] [place] [facility] [address] [id number] [place] [address]- 0747 Jan, [facility] [place] [facility] [address] [id number], [place] [address]- 0239 Jan, [facility] [place] [facility] [address] [id number] [place] [address]- 5693 Dec, [facility] [place] [facility] [address] [id number] [place] [address]- 1036 Nov, [facility] [place] [facility] [address] [id number] [place] [address]- 2544 Nov, [facility] [place] [facility] [address] [id number], [place] [address] 2546 Nov, [facility] [id number] [address]- 6908 Oct, [facility] [address] [address]- 9636 Oct, [facility] [address] [address]- 3276 August, [facility] [address] [address]- 0464 Apr, [facility] [address] [id number] [address]- 5465 Apr, [facility] [address] [address]- 4146 Feb, [facility] [address] [address]- 2882 Feb, [facility] [address] 4701 Dec, [facility] [address] 8145 Dec, [facility] [address] 6869 Oct, [facility] [address] [id number] [address]- 3769 Oct, [facility] [id number] [address]- 7863 Oct, [facility] [address] [id number] [address]- 7675 Jul, IMMUNIZATIONS No Known Immunizations SOCIAL HISTORY Never Assessed REASON FOR VISIT Diabetes (needs shoes)-[place]woods PLAN OF CARE Activity Details Follow Up 3 Months, prn Reason:CHM/DM VITAL SIGNS Height 57 in 2017-11-02 Weight 223.8 lbs 2017-11-02 Temperature 97.5 degrees Fahrenheit 2017-11-02 Heart Rate 84 bpm 2017-11-02 Respiratory Rate 20 2017-11-02 BMI 48.42 kg/m2 2017-11-02 Blood pressure systolic 140 mmHg 2017-11-02 Blood pressure diastolic 84 mmHg 2017-11-02 MEDICATIONS Medication Instructions Dosage Frequency Start Date End Date Duration Status Gabapentin 600 MG Orally Three times a day 1 tablet 8h Active Cetirizine HCl 10 mg Orally Once a day 1 tablet 24h Jun, Sep, 90 days Active Spironolactone 50MG Orally Once a day 1 tablet 24h Active Lisinopril 2.5 MG Orally Once a day 1 tablet 24h Nov, Active Loxapine Succinate 25 MG Orally 4 times a day PRN 1 capsule 30 days Active Ventolin HFA 108 (90 Base) MCG/ACT Inhalation every 4 hrs PRN 2 puffs as needed Feb, 12 months Active Januvia 100MG Orally Once a day 1 tablet 24h Active Zoloft 50 MG Orally Once a day 1 tablet 24h Active Ambien 5 mg Orally Once a day 1 tablet at bedtime 24h Oct, 28 days Active Breo Ellipta 100-25 mcg/inh Inhalation Once a day INHALE ONE PUFF BY MOUTH ONCE DAILY AT THE SAME TIME EACH DAY 24h Oct, 12 months Active Sumatriptan Succinate 50 MG TAKE 1 TABLET BY MOUTH NEEDED FOR MIGRAINE- MAY REPEAT IN 2 HOURS IF NEEDED (TWICE A DAY) 10 Active Tramadol HCl 50 mg Orally 2 times a day 1 tablet as needed 12h 28 days Active Tizanidine HCl 4 MG Orally 3 times a day 1 1/2 tablets 8h Active Zoloft 100 MG Orally Once a day 2 tablet 24h Mar, 30 days Active Norvasc 10 mg Orally Once a day 1 tablet 24h Active Metformin HCl 1000MG Orally 2 times a day TAKE ONE TABLET BY MOUTH TWICE DAILY 12h Active Incontinence Supply Disposable SUPPLIES as directed Feb, 30 days Not-Taking Pravastatin Sodium 20 MG Orally Once a day 1 tablet 24h Active Invega Sustenna 234 MG/1.5ML Intramuscular Once a month, on the 10th of every month 1.5 ml 30 days Active Fluticasone Propionate 50 MCG/ACT Nasally Once a day 1 spray in each nostril 24h Jun, 30 day(s) Active Levothyroxine Sodium 175 MCG Orally Once a day 1 tablet 24h Active Singulair 10 MG Orally Once a day 1 tablet in the evening 24h Jan, 30 day(s) Active Omeprazole 40 MG Orally Once a day 1 capsule 24h Active Restasis 0.05 % instill 1 drop into affected eye(s) by ophthalmic route 2 times per day Oct, Active Neurontin 600 mg Orally 2 times a day 1 tablet 12h Active Myrbetriq 50 MG Orally Once a day 1 tablet 24h Active HydrOXYzine HCl 50 mg TAKE ONE TO TWO TABLETS BY MOUTH EVERY 8 HOURS NEEDED FOR 30 DAYS Active Estradiol 1 MG TAKE 1 TABLET BY MOUTH ONCE DAILY 30 Active Ibuprofen 800MG TAKE ONE TABLET BY MOUTH THREE TIMES DAILY NEEDED Active Plaquenil 200 mg Orally Once a day 1 tablet with food or milk 24h Active RESULTS Name Result Date Reference Range A1C (IN HOUSE) 2017-11-02 A1C IN HOUSE 7.2 4.3 - 5.6 % Previous A1c 7.2 Lot Exp date MICROALBUMIN, URINE (IN HOUSE) 2017-11-02 MICROALBUMIN normal Lot # [id number] Exp date 10/12 Clarity clear Color yellow ALB 10 CRE 100 A:C (IN HOUSE) <30 Control Control Lot # Exp date PROCEDURES Procedure Date Ordered Result Body Site GLYCATED HEMOGLOBIN TEST November 02, 2017 MICROALBUMIN, SEMIQUANT November 02, 2017 [facility] VISIT ESTABLISHED PATIENT November 02, 2017 INSTRUCTIONS MEDICATIONS ADMINISTERED No Known Medications [...] illness , last one in [facility] 4 years ago
--- OUTSIDE RECORDS SUMMARY | 2018-09-02 13:34 | XMS REPORT ---
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 Name Role Phone SOTO STRICKLAND Unavailable PROBLEMS Type Condition ICD9-CM Code TON56-DM Code Onset Dates Condition Status SNOMED Code Problem OAB (overactive bladder) N32.81 Active 240525698 Problem Depression with anxiety F41.8 Active 129345776 Problem Other seasonal allergic rhinitis J30.2 Active 458185106 Problem Chronic obstructive pulmonary disease, unspecified COPD type J44.9 Active 85705985 Problem Tobacco abuse Z72.0 Active 363161127 Problem Morbid obesity due to excess calories E66.01 Active 404163727 Problem Dyslipidemia E78.5 Active 000074327 Problem Hypothyroidism (acquired) E03.9 Active 850476479 Problem Essential hypertension I10 Active 22430615 Problem Diabetic polyneuropathy associated with type 2 diabetes mellitus E11.42 Active 537211486 Problem Type 2 diabetes mellitus with diabetic neuropathic arthropathy, 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 Active 301552680 Problem Type 2 diabetes mellitus without complication, without long-term current use of insulin E11.9 Active 918445042 Problem Paranoid schizophrenia F20.0 Active 89213365 Problem Chronic pain syndrome G89.4 Active 710738384 Problem Migraine without aura and without status migrainosus, not intractable G43.009 Active 540845356 Problem Gastroesophageal reflux disease, esophagitis presence not specified K21.9 Active 051846144 Problem Seasonal allergic rhinitis due to pollen J30.1 Active 65814432 Problem COPD exacerbation J44.1 Active 534971082 Problem Seasonal allergic rhinitis due to other allergic trigger J30.89 Active 871706878 Problem Schizoaffective disorder, depressive type F25.1 Active 05142832 Problem History of lupus Z87.39 Active 151850865 Problem Gastroesophageal reflux disease without esophagitis K21.9 Active 376927875 Problem Menopausal syndrome (hot flashes) N95.1 Active 746499617 Problem Other allergic rhinitis J30.89 Active 961274135 Problem Primary insomnia F51.01 Active 6885293 Problem DM neuro manif type II E11.49 Active 77580689 ALLERGIES No Information ENCOUNTERS Encounter Location Date Diagnosis [facility] [id number] [place] [address] 71397- 3428 Jan, [facility] [facility] [address] 55677- 7657 Dec, [facility] [facility] [address] 62682- 9616 Dec, [place] [address] 52532- 2224 Nov, Schizoaffective disorder, depressive type F25.1 and BMI 45.0 -49.9, adult Z68.42 [facility] [address] 75152- 5074 Nov, [facility] [facility] [address] 99792- 1808 Nov, [facility] [facility] [address] 11932- 3072 Nov, Schizoaffective disorder, depressive type F25.1 [facility] [facility] [address] 83442- 7477 Nov, Well woman exam Z01.419 ; BMI 45.0-49.9, adult Z68.42 ; Screening breast examination Z12.31 and Dietary counseling and surveillance Z71.3 [facility] [facility] [id number] [place] [address] 07119- 8213 Nov, Paranoid schizophrenia F20.0 [facility] [address] 42407- 5233 Nov, Gastroesophageal reflux disease, esophagitis presence not specified K21.9 [facility] [address] 84527- 4346 Oct, Paranoid schizophrenia F20.0 [facility] [id number] [address] Oct Chronic pain syndrome G89.4 and Schizoaffective disorder, depressive type F25.1 [place] [address], [place] [address] 2141 Oct, Chronic pain syndrome G89.4 and Schizoaffective disorder, depressive type F25.1 [facility] [address] [place] [address] 97849- 5830 Oct, Type 2 diabetes mellitus without complication, without long- term current use of insulin E11.9 [facility] [id number] [place] [address] 57121- 4646 Oct, Essential hypertension I10 and DM neuro manif type II E11.49 [facility] [id number] [place] [address] 76976- 7088 Oct, [facility] [address] [place] [address] 80431- 7665 Oct, Schizoaffective disorder, depressive type F25.1 and BMI 45.0 -49.9, adult Z68.42 [facility] [address] [address] 3005 Oct, [facility] [address] [place] [address] 34049- 0450 Oct, Paranoid schizophrenia F20.0 [facility] [address] [place] [address] 12595- 5026 Oct, Type 2 diabetes mellitus with diabetic neuropathic arthropathy, 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 ; Essential hypertension I10 ; Hypothyroidism (acquired) E03.9 ; Chronic obstructive pulmonary disease, unspecified COPD type J44.9 and Diabetic polyneuropathy associated with type 2 diabetes mellitus E11.42 [facility] [address] [place] [address] 08831- 2967 Sep, Paranoid schizophrenia F20.0 [facility] [address] [address] 4743 Sep, Paranoid schizophrenia F20.0 and BMI 45.0-49.9, adult Z68.42 [facility] [id number] [address] 5514 Sep, Schizoaffective disorder, depressive type F25.1 [facility] [id number] [place] [address] 15969- 0574 Sep, [facility] [id number] [place] [address] 98283- 7711 Sep, Paranoid schizophrenia F20.0 [facility] [id number] [place] [address] 77092- 1558 Sep, [facility] [id number] [place] [address] 58432- 3470 Sep, Hypothyroidism (acquired) E03.9 [facility] [id number] [place] [address] 51942- 7823 Sep, [facility] [id number] [place] [address] 68634- 5395 August, Schizoaffective disorder, depressive type F25.1 [facility] [id number] [address] 5803 August, [facility] [id number] [place] [address] 27150- 8362 August, [facility] [address] [address]- 5702 August, [facility] [id number] [place] [address] 14416- 6061 August, Paranoid schizophrenia F20.0 [facility] [address] [address] 1317 August, History of lupus Z87.39 and Chronic pain syndrome G89.4 [facility] [id number] [place] [address] 64850- 1694 August, [facility] [address] 24249 -6536 August, Seasonal allergic rhinitis, unspecified trigger J30.2 and BMI 45.0-49.9, adult Z68.42 [facility] [address] 32094- 8110 Jul, Schizoaffective disorder, depressive type F25.1 [facility] [address] 15088- 6999 Jul, [facility] [facility] [address] 45018- 0666 Jul, Hypothyroidism (acquired) E03.9 [facility] [address] 01560- 1532 Jul, Chronic obstructive pulmonary disease, unspecified COPD type J44.9 and Type 2 diabetes mellitus without complication, without long-term current use of insulin E11.9 [facility] [facility] [address] 79291- 1190 Jul, Paranoid schizophrenia F20.0 [facility] [address] 41070- 4466 Jun, Hypothyroidism (acquired) E03.9 and Seasonal allergic rhinitis due to pollen J30.1 [facility] [id number] [place] [address] 41720 -4493 Jun, Shortness of breath at rest R06.02 ; COPD exacerbation J44.1 and BMI 45.0-49.9, adult Z68.42 [facility] [address] 42583- 9895 Jun, [facility] [address] 59095- 4563 Jun, Paranoid schizophrenia F20.0 ; Depression with anxiety F41.8 and BMI 45.0-49.9, adult Z68.42 [facility] [id number] [place] [address]338 Jun, Schizoaffective disorder, depressive type F25.1 [facility] [id number] [place] [address] [id number] Jun, Dental caries K02.9 [facility] [address] 239484- 9065 Jun, Paranoid schizophrenia F20.0 [facility] [address]- 9078 May, Migraine without aura and without status migrainosus, not intractable G43.009 ; DM neuro manif type II E11.49 and Type 2 diabetes mellitus without complication, without long-term current use of insulin E11.9 [facility] [id number] [place] [address] 38237- 9535 May, Migraine without aura and without status migrainosus, not intractable G43.009 [facility] [id number] [place] [address] 14729- 1063 May, Depression with anxiety F41.8 [facility] [id number] [place] [address] [id number] May, [facility] [id number] [place] [address] 15902- 5860 May, [facility] [id number] [place] [address] 81648- 1456 May, [facility] [id number] [place] [address] 52066- 1303 May, Hypothyroidism (acquired) E03.9 [facility] [id number] [place] [address] 42516- 6469 May, Paranoid schizophrenia F20.0 [facility] [id number] [place] [address] 69429- 1553 08 May, 2017 Type 2 diabetes mellitus [...] Controlled substance agreement signed Z79.899 [facility] [address] 45927- 4638 May, Controlled substance agreement signed Z79.899 [facility] [facility] [address] 14668- 1857 Apr, [facility] [address] [id number] Apr, Dental examination Z01.20 [facility] [address] 85724- 2467 Apr, Paranoid schizophrenia F20.0 [facility] [address] 55920- 0235 Apr, Hypertension, unspecified type I10 [facility] [address] 02312- 4703 Apr, Paranoid schizophrenia F20.0 [facility] [address] 10268- 9450 Apr, [facility] [address] 06362- 4072 Apr, Tobacco abuse Z72.0 [facility] [address] 42885- 5694 Apr, [facility] [id number] [place] [address] 51690- 7641 Mar, [facility] [id number] [place] [address] 50631- 0444 Mar, Paranoid schizophrenia F20.0 and BMI 45.0-49.9, adult Z68.42 [facility] [id number] [place] [address] 80046- 9328 Mar, Schizoaffective disorder, depressive type F25.1 [facility] [id number] [place] [address] 00679- 3456 Mar, [facility] [address] 20058- 7746 Mar, Hypothyroidism, unspecified type E03.9 [facility] [id number] [place] [address] 66992- 1196 Mar, Schizoaffective disorder, depressive type F25.1 [facility] [id number] [place] [address] 08672 -0503 Feb, Gastroenteritis K52.9 and BMI 45.0-49.9, adult Z68.42 [facility] [id number] [place] [address] 95633- 2108 Feb, [facility] [id number] [place] [address] 98962- 6129 Feb, [facility] [id number] [place] [address] 27054- 2875 Feb, [facility] [id number] [place] [address] 40857- 8945 Feb, [facility] [id number] [place] [address] 57328- 4345 Feb, Paranoid schizophrenia F20.0 [facility] [id number] [place] [address] 10727- 4861 Feb, Gastroesophageal reflux disease without esophagitis K21.9 ; Other seasonal allergic rhinitis J30.2 ; Other allergic rhinitis J30.89 ; Tobacco abuse Z72.0 and BMI 40.0-44.9, adult Z68.41 [facility] [id number] [place] [address] 90510- 6928 Feb, Onychomycosis B35.1 ; Callus of foot L84 and DM neuro manif type II E11.49 [facility] [address] 49336- 4071 Jan, Chronic allergic rhinitis J30.9 [facility] [address] 18103- 3204 Jan, [facility] [address] 65771- 0089 Jan, Schizoaffective disorder, depressive type F25.[address] 71217- 5007 Jan, [facility] [address] 47974 -9905 Jan, Sore throat J02.9 and Seasonal allergic rhinitis due to other allergic trigger J30.89 [facility] [id number] [place] [address] 96511- 8771 Jan, [facility] [id number] [place] [address] 98368- 4582 Jan, [facility] [address] 27000 -4923 Jan, Chronic allergic rhinitis J30.9 [facility] [facility] [address] 48554- 4223 27 Dec, 2016 Paranoid schizophrenia F20.0 ; Primary insomnia F51.01 and Schizoaffective disorder, depressive type F25.1 [facility] [address] 47169- 5319 Dec, Chronic pain syndrome G89.4 ; Cervicalgia of occipito- atlanto-axial region M54.2 ; Menopausal syndrome (hot flashes) N95.1 and Encounter for immunization Z23 [facility] [id number] [place] [address] 01679- 5824 Dec, [facility] [address] 01466- 3524 Dec, [facility] [address] 51490- 3305 Dec, Paranoid schizophrenia F20.0 [facility] [address] 50273- 2459 Dec, Schizoaffective disorder, depressive type F25.1 [facility] [address] 93444- 2257 Nov, Hypothyroidism, unspecified type E03.9 [facility] [id number] [place] [address] 51813 -9543 Nov, Acute seasonal allergic rhinitis due to other allergen J30.89 [facility] [address] 86356- 1205 Nov, [facility] [id number] [place] [address] 88962- 8770 Nov, Hypothyroidism, unspecified type E03.9 and Other elevated white blood cell (WBC) count D72.828 [facility] [id number] [place] [address] 08636- 3964 Nov, Schizoaffective disorder, depressive type F25.1 [facility] [address] 18560- 6377 Nov, Paranoid schizophrenia F20.0 [facility] [id number] [place] [address] 80244- 0284 Nov, Type 2 diabetes mellitus without complication, without long- term current use of insulin E11.9 ; Morbid obesity due to excess calories E66.01 and Chronic pain syndrome G89.4 [place] [address] [place] [address] 09978- 5127 Oct, Paranoid schizophrenia F20.0 [facility] [id number] [place] [address] 29358- 4537 Oct, [facility] [id number] [place] [address] 82236- 2234 Oct, Schizoaffective disorder, depressive type F25.1 [facility] [id number] [place] [address] 95357- 4951 Oct, Hypothyroidism, unspecified type E03.9 and Other elevated white blood cell (WBC) count D72.828 [facility] [id number] [place] [address] 09847- 5142 Oct, Morbid obesity due to excess calories E66.01 ; Chronic obstructive pulmonary disease, unspecified COPD type J44.9 ; History of lupus Z87.39 ; Hypothyroidism, unspecified type E03.9 ; Gastroesophageal reflux disease without esophagitis K21.9 ; Primary insomnia F51.01 and Chronic pain syndrome G89.4 [facility] [address] [place] [address] 17643- 3843 Sep, [facility] [facility] [address], [place] [address]- 7915 Sep, [facility] [facility] [id number] [place] [address] 79108- 4348 Sep, [place] [address] [place] [address] 18725- 1762 Sep, Paranoid schizophrenia F20.0 [facility] [id number] [place] [address] 10719- 1659 Sep, [place] [address] [place] [address] 71059- 8624 Sep, Paranoid schizophrenia F20.0 [facility] [facility] [address] [address]- 6540 Sep, [facility] [facility] [id number] [place] [address] 27412- 9944 August, Paranoid schizophrenia F20.0 [facility] [facility] [address] [place] [address] 92761- 3659 Jul, [facility] [facility] [id number] [place] [address] 90419- 8009 Jul, Type 2 diabetes mellitus without complication, [...] [facility] [address] [place] [address] [id number] Jul, Dental examination Z01.20 [facility] [id number] [place] [address] 39901- 4723 07 Jul, 2016 Paranoid schizophrenia F20.0 [facility] [facility] [id number] [place] [address] 42279- 2029 13 Jun, 2016 Paranoid schizophrenia F20.0 and Depression with anxiety F41.8 [place] [address] [place] [address] 30197- 6062 Jun, Paranoid schizophrenia F20.0 and Depression with anxiety F41.8 [place] [address] [place] [address] 89111- 2808 09 Jun, 2016 [place] [id number] [place] [address] 02539- 7840 08 Jun, 2016 [facility] [address] [address] -2852 08 Jun, 2016 Seasonal allergic rhinitis due to other allergic trigger J30.89 [facility] [id number] [place] [address] 03763 -1576 May, Sore throat J02.9 ; Other viral agents as the cause of diseases classified elsewhere B97.89 and Acute upper respiratory infection, unspecified J06.9 [place] [id number] [place] [address] 94619- 7029 May, Paranoid schizophrenia F20.0 and Depression with anxiety F41.8 [place] [address] 57617- 3694 Apr, Other seasonal allergic rhinitis J30.2 [place] [address] 93087- 2273 Apr, Paranoid schizophrenia F20.0 and Depression with anxiety F41.8 [facility] [address] 36461 -2744 Apr, Bronchitis J40 and Sore throat J02.9 [place] [address] 24270- 3905 Apr, Type 2 diabetes mellitus without complication, without long- term current use of insulin E11.9 [facility] [place] [address] 83589 -4515 Apr, Bronchitis J40 [place] [address] 07107- 8000 Apr, [place] [id number] [place] [address] 66380- 4782 Apr, [place] [id number] [place] [address] 14221- 8014 Mar, Type 2 diabetes mellitus without complication, [...] Other seasonal allergic rhinitis J30.2 [place] [id number] [place] [address] 81031- 5127 Mar, Paranoid schizophrenia F20.0 and Depression with anxiety F41.8 [facility] [id number] [place] [address] 54837- 1182 Feb, [place] [address] 86639- 6433 Feb, [place] [id number] [place] [address] 54312- 3788 Feb, [place] [address] 57867- 4678 Feb, [place] [id number] [place] [address] 28465- 8638 Feb, Type 2 diabetes mellitus without complication, without long- term current use of insulin E11.9 ; ARIAS on CPAP G47.33 and Preoperative evaluation to rule out surgical contraindication Z01.818 [place] [id number] [place] [address] 33912- 9180 Feb, Paranoid schizophrenia F20.0 and Depression with anxiety F41.8 [place] [id number] [place] [address] 94636- 2315 Jan, [place] [address] 80874- 1223 Jan, Paranoid schizophrenia F20.0 and Depression with anxiety F41.8 [place] [id number] [place] [address] 11901- 0808 Jan, [facility] [id number] [place] [address] 87602- 7841 Jan, Muscle strain T14.8 [facility] [id number] [place] [address] 72021- 0184 Jan, Paranoid schizophrenia F20.0 [facility] [address] [place] [address] 36977- 3595 Jan, [facility] [id number] [place] [address] 07546- 5159 Jan, Paranoid schizophrenia F20.0 and Depression with anxiety F41.8 [facility] [id number] [place] [address] 69210- 1610 Jan, [facility] [id number] [place] [address] 45787- 3595 Jan, [facility] [id number] [place] [address] 77070- 8262 Dec, [facility] [id number] [place] [address] 89414- 5951 Dec, Paranoid schizophrenia F20.0 [facility] [id number] [place] [address] 31523- 7419 16 Dec, 2015 Paranoid schizophrenia F20.0 and Depression with anxiety F41.8 [facility] [id number] [place] [address] 81479- 9898 Nov, [facility] [id number] [place] [address] 00049- 9640 Nov, Paranoid schizophrenia F20.0 [facility] [id number] [place] [address] 45300- 4590 Nov, Paranoid schizophrenia F20.0 and Depression with anxiety F41.8 [facility] [address] [place] [address] 53995- 6490 Nov, Type 2 diabetes mellitus without complication, without long- term current use of insulin E11.9 ; Paranoid schizophrenia F20.0 ; Chronic obstructive pulmonary disease, unspecified COPD type J44.9 ; Morbid obesity due to excess calories E66.01 and Parkinsonian tremor G20 [facility] [address] [place] [address] 74147- 6777 Nov, [place] [address] [place] [address] 90350- 4433 Oct, Paranoid schizophrenia F20.0 [place] [id number] [place] [address] 55281- 1956 Oct, Paranoid schizophrenia F20.0 [place] [id number] [place] [address] 74177- 2418 Oct, Paranoid schizophrenia F20.0 and Depression with anxiety F41.8 [place] [id number] [place] [address] 94897- 3318 Oct, [place] [id number] [place] [address] 80179- 2649 Oct, Paranoid schizophrenia F20.0 and Depression with anxiety F41.8 [place] [id number] [place] [address] 14547- 7292 Oct, Nasal sore J34.89 [place] [id number] [place] [address] 95278- 4630 Oct, Type 2 diabetes mellitus without complication, without long- term current use of insulin E11.9 ; Depression with anxiety F41.8 ; Hypothyroidism, unspecified type E03.9 and History of lupus Z87.39 [place] [address] [place] [phone] Oct, [facility] [id number] [place] [phone] Oct, Type 2 diabetes mellitus without complication, [...] edema R60.9 and History of lupus Z87.39 [facility] [id number] [place] [address] [phone] Feb, [facility] [id number] [place] [address] [phone] Jan, [facility] [id number] [place] [address] [phone] Jan, [facility] [id number] [place] [address] [phone] Jan, [facility] [id number] [place] [address] 02961- 9998 Dec, [facility] [id number] [place] [address] 61280- 5419 Nov, [facility] [id number] [place] [address] 84131- 7819 Nov, [facility] [id number] [place] [address] 67068- 1360 Oct, [facility] [id number] [place] [address] 30707- 8281 Oct, [facility] [address] [id number] [address] 5078 Oct, [facility] [id number] [place] [address] 39058- 3962 Sep, Allergic rhinitis 477.9 [facility] [id number] [place] [address] 92955- 7795 Sep, Rhinitis, allergic 477.9 [facility] [id number] [place] [address] 44936- 1277 Sep, Rhinitis, allergic 477.9 [facility] [address], [place] [address] Sep, [facility] [place] [facility] [address] [id number] [address] August, [facility] [address] [id number] [place] [address] 2909 August, [facility] [place] [facility] [address] [id number] [place] [address]- 3636 August, [facility] [place] [facility] [address] [id number] [place] [address]- 7472 Jul, [facility] [place] [facility] [address] [id number] [place] [address]- 9830 Jul, [facility] [place] [facility] [address] [id number] [place] [address] 2004 Jul, [facility] [place] [facility] [address] [id number] [place] [address]- 1387 Jun, [facility] [place] [facility] [address] [id number] [place] [address]- 0662 Jun, [facility] [place] [facility] [address] [id number] [place] [address]- 3332 Jun, [facility] [place] [facility] [address] [id number] [place] [address]- 3440 Jun, [facility] [place] [facility] [address] [id number] [place] [address]- 7583 Jun, [facility] [place] [facility] [address] [id number] [place] [address]- 3432 Jun, [facility] [place] [facility] [address] [id number] [place] [address]- 6522 Jun, [facility] [place] [facility] [address] [id number] [place] [address]- 7871 Jun, [facility] [place] [facility] [address] [id number] [place] [address]- 8896 May, [facility] [place] [facility] [address] [id number] [place] [address]- 0857 May, [facility] [place] [facility] [address] [id number] [place] [address]- 4886 May, [facility] [place] [facility] [address] [id number] [place] [address]- 9256 May, [facility] [place] [facility] [address] [facility] [id number] [place] [address]- 8503 Apr, [facility] [place] [facility] [address] [id number] [place] [address]- 5662 Mar, [facility] [place] [facility] [address] [id number] [place] 5354 Mar, [facility] [place] [facility] [address] [id number] [place] 387[address] Mar, [facility] [place] [facility] [address] [id number] [place] [address]- 3776 Mar, [facility] [place] [facility] [address] [id number] [place] [address]- 0385 Mar, [facility] [place] [facility] [address] [id number] [place] 2736 Mar, [facility] [place] [facility] [address] [id number] [place] [address]- 9214 Mar, [facility] [place] [facility] [address] [id number] [place] [address]- 4404 Mar, [facility] [place] [facility] [address] [id number], [place] [address]- 6358 Mar, [facility] [place] [facility] [address] [id number] [place] [address]- 1082 Feb, [facility] [place] [facility] [address] [id number] [place] [address]- 9970 Feb, [facility] [place] [facility] [address] [facility] [id number] [place] [address]- 2746 Feb, [facility] [place] [facility] [address] [id number] [place] [address]- 4671 17 Feb, 2014 [facility] [place] [facility] [address] [id number] [place] [address]- 8113 14 Feb, 2014 [facility] [place] [facility] [address] [id number] [place] [address]- 6042 14 Feb, 2014 [facility] [place] [facility] [address] [id number] [place] [address]- 7221 12 Feb, 2014 [facility] [place] [facility] [address] [id number] [place] [address]- 0874 12 Feb, 2014 [facility] [place] [facility] [address] [id number] [place] [address]- 6415 23 Jan, 2014 [facility] [place] [facility] [address] [id number] [place] [address]- 0335 23 Jan, 2014 [facility] [place] [facility] [address] [id number] [place] [address]- 4767 16 Jan, 2014 [facility] [place] [facility] [address] [id number] [place] [address]- 9136 16 Jan, 2014 [facility] [place] [facility] [address] [id number] [place] [address]- 6141 15 Jan, 2014 [facility] [place] [facility] [address] [id number] [place] [address]- 4920 15 Jan, 2014 [facility] [place] [facility] [address] [id number] [place] [address]- 7848 14 Jan, 2014 [facility] [place] [facility] [address] [id number] [place] [address]- 9565 14 Jan, 2014 [facility] [place] [facility] [address] [id number] [place] [address]- 8522 14 Jan, 2014 [facility] [place] [facility] [address] [id number] [place] [address]- 2973 14 Jan, 2014 [facility] [place] [facility] [address] [id number] [place] [address]- 8521 Dec, [facility] [place] [facility] [address] [id number] [place] [address]- 1868 Dec, [facility] [place] [facility] [address] [id number] [place] [address]- 0144 Dec, [facility] [place] [facility] [address] [id number] [place] [address]- 4680 Dec, [facility] [place] [facility] [address] [id number] [place] [address]- 3270 Nov, [facility] [place] [facility] [address] [id number] [place] [address]- 3107 Nov, [facility] [place] [facility] [address] [id number] [place] [address]- 3570 Nov, [facility] [place] [facility] [address] [id number] [place] [address]- 4966 Nov, [facility] [place] [facility] [address] [id number] [place] [address]- 0854 Nov, [facility] [place] [facility] [address] [id number] [place] [address]- 2206 Oct, [facility] [place] [facility] [address] [id number] [place] [address]- 1149 Oct, [facility] [place] [facility] [address] [id number] [place] [address]- 5441 Oct, [facility] [place] [facility] [address] [id number] [place] [address]- 6063 Oct, [facility] [place] [facility] [address] [id number] [place] [address]- 9681 Sep, [facility] [place] [facility] [address] [id number] [place] [address]- 1308 Sep, [facility] [place] [facility] [address] [id number] [place] [address]- 0681 Sep, [facility] [place] [facility] [address] [id number] [place] [address]- 0774 Sep, [facility] [place] [facility] [address] [id number] [place] [address]- 5356 Sep, [facility] [place] [facility] [address] [id number] [place] [address]- 1764 Sep, [facility] [place] [facility] [address] [id number] [place] [address]- 2882 Sep, [facility] [place] [facility] [address] [id number] [place] [address]- 3709 Sep, [facility] [place] [facility] [address] [id number] [place] [address]- 9662 August, [facility] [place] [facility] [address] [id number] [place] [address]- 8495 August, [facility] [place] [facility] [address] [id number] [place] [address]- 0250 August, [facility] [place] [facility] [address] [id number] [place] [address]- 2154 August, [facility] [place] [facility] [address] [id number] [place] [address]- 5305 August, [facility] [place] [facility] [address] [id number] [place] [address]- 3228 August, [facility] [place] [facility] [address] [id number] [place] [address]- 6867 August, [facility] [place] [facility] [address] [id number] [place] [address]- 9776 Jul, [facility] [place] [facility] [address] [id number] [place] [address]- 2251 Jul, [facility] [place] [facility] [address] [id number] [place] [address]- 0342 Jul, [facility] [place] [facility] [address] [id number] [place] [address]- 3064 Jul, [facility] [place] [facility] [address] [id number] [place] [address]- 0267 Jul, [facility] [place] [facility] [address] [id number] [place] [address]- 0163 Jul, [facility] [place] [facility] [address] [id number] [place] [address]96 Jul, [facility] [place] [facility] [address] [id number] [place] [address]- 6784 Jul, [facility] [place] [facility] [address] [id number] [place] [address]- 4919 Jul, [facility] [place] [facility] [address] [id number] [place] [address]- 9830 Jul, [facility] [place] [facility] [address] [id number] [place] [address]- 6974 Jul, [facility] [place] [facility] [address] [id number] [place] [address]- 0520 Jul, [facility] [place] [facility] [address] [id number] [place] [address]- 1659 Jun, [facility] [place] [facility] [address] [id number] [place] [address]- 6892 Jun, [facility] [place] [facility] [address] [id number] [place] [address]- 0487 Jun, [facility] [place] [facility] [address] [id number] [place] [address]- 0235 Jun, [facility] [place] [facility] [address] [id number] [place] [address]- 4699 Jun, [facility] [place] [facility] [address] [id number] [place] [address]- 0505 May, [facility] [place] [facility] [address] [id number] [place] [address]- 1982 May, [facility] [place] [facility] [address] [id number] [place] [address]- 9788 May, [facility] [place] [facility] [address] [id number] [place] [address]- 3257 May, [facility] [place] [facility] [address] [id number] [place] [address]- 8166 May, [facility] [place] [facility] [address] [id number] [place] [address]- 8419 May, [facility] [place] [facility] [address] [id number] [place] [address]- 1471 May, [facility] [place] [facility] [address] [id number] [place] [address]- 2865 May, [facility] [place] [facility] [address] [id number] [place] [address]- 6647 Mar, [facility] [place] [facility] [address] [id number] [place] [address]- 7985 Mar, [facility] [place] [facility] [address] [id number] [place] [address]- 0678 Mar, [facility] [place] [facility] [address] [id number] [place] [address]- 9176 Mar, [facility] [place] [facility] [address] [facility] [id number] [place] [address]- 4352 Mar, [facility] [place] [facility] [address] [id number], [place] [address]- 4620 Mar, [facility] [place] [facility] [address] [id number], [place] [address]- 0401 Feb, [facility] [place] [facility] [address] [id number] [place] [address]- 7424 Feb, [facility] [place] [facility] [address] [facility] [id number] [place] [address]- 1092 Jan, [facility] [place] [facility] [address] [id number] [place] [address]- 9344 Jan, [facility] [place] [facility] [address] [id number] [place] [address]- 2689 Jan, [facility] [address] [id number] [place] [address]- 5731 Jan, [facility] [place] [facility] [address] [id number] [place] [address]- 9665 Jan, [facility] [address] [id number] [place] [address]- 6192 Jan, [facility] [place] [facility] [address] [id number] [place] [address]- 0377 Jan, [facility] [address] [id number] [place] [address]- 3772 Jan, [facility] [place] [facility] [address] [id number] [place] [address]- 5737 Jan, [facility] [place] [facility] [address] [id number] [place] [address]- 0752 Jan, [facility] [address] [id number] [place] [address]- 3634 Dec, [facility] [place] [facility] [address] [id number] [place] [address]- 8020 Nov, [facility] [place] [facility] [address] [id number] [place] [address]- 9020 Nov, [facility] [place] [facility] [address] [id number] [place] [address]- 4789 Nov, [facility] [place] [facility] [address] [id number] [place] [address]- 7735 Oct, [facility] [place] [facility] [address] [id number] [place] [address]- 2549 Oct, [facility] [place] [facility] [address] [id number] [place] [address]- 2546 August, [facility] [place] [facility] [address] [id number] [place] [address]- 4592 Apr, [facility] [address] [id number] [address]- 3155 Apr, [facility] [address], [place] [address]- 2930 Feb, [facility] [address] [id number] [address]- 0921 Feb, [facility] [address], [place] [address]- 4244 Dec, [facility] [address], [place] [address]- 2233 Dec, [facility] [address], [place] [address]- 4683 Oct, [facility] [address], [place] [address]- 0489 Oct, [facility] [address], [place] [address]- 1555 Oct, [facility] [address] [id number], [place] [address]- 0863 Jul, IMMUNIZATIONS No Known Immunizations SOCIAL HISTORY Never Assessed REASON FOR VISIT Refill request PLAN OF CARE VITAL SIGNS MEDICATIONS Medication Instructions Dosage Frequency Start Date End Date Duration Status Neurontin 600 mg Orally 2 times a day 1 tablet 12h 30 days Active Norvasc 10 mg Orally Once a day 1 tablet 24h Active Spironolactone 50MG Orally Once a day 1 tablet 24h Active Ibuprofen 800MG TAKE ONE TABLET BY MOUTH THREE TIMES DAILY NEEDED Active RESULTS No Results PROCEDURES No Known [...] for psychosis/mental illness , last one in [facility] 4 years ago
--- OUTSIDE RECORDS SUMMARY | 2018-09-02 13:34 | XMS REPORT ---
Author Author SOTO STRICKLAND Organization [facility] Address [address] [place] [address] Care Team Providers Care Emergency Medical Service Coordinator Name Role Phone SOTO STRICKLAND Unavailable PROBLEMS Type Condition ICD9-CM Code [id number] Code Onset Dates Condition Status SNOMED Code Problem OAB (overactive bladder) N32.81 Active 924743390 Problem Depression with anxiety F41.8 Active 393082669 Problem Other seasonal allergic rhinitis J30.2 Active 198399114 Problem Chronic obstructive pulmonary disease, unspecified COPD type J44.9 Active 31779386 Problem Tobacco abuse Z72.0 Active 234076748 Problem Morbid obesity due to excess calories E66.01 Active 166972451 Problem Dyslipidemia E78.5 Active 455936474 Problem Hypothyroidism (acquired) E03.9 Active 301664551 Problem Essential hypertension I10 Active 89072592 Problem Diabetic polyneuropathy associated with type 2 diabetes mellitus E11.42 Active 710778272 Problem Type 2 diabetes mellitus with diabetic neuropathic arthropathy, 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 Active 271771827 Problem Type 2 diabetes mellitus without complication, without long-term current use of insulin E11.9 Active 832588732 Problem Paranoid schizophrenia F20.0 Active 94259314 Problem Chronic pain syndrome G89.4 Active 670759767 Problem Migraine without aura and without status migrainosus, not intractable G43.009 Active 772500528 Problem Gastroesophageal reflux disease, esophagitis presence not specified K21.9 Active 057045379 Problem Seasonal allergic rhinitis due to pollen J30.1 Active 48840279 Problem COPD exacerbation J44.1 Active 019916125 Problem Seasonal allergic rhinitis due to other allergic trigger J30.89 Active 050855772 Problem Schizoaffective disorder, depressive type F25.1 Active 04842755 Problem History of lupus Z87.39 Active 658902820 Problem Gastroesophageal reflux disease without esophagitis K21.9 Active 585365905 Problem Menopausal syndrome (hot flashes) N95.1 Active 559705833 Problem Other allergic rhinitis J30.89 Active 965489669 Problem Primary insomnia F51.01 Active 5523583 Problem DM neuro manif type II E11.49 Active 60618987 ALLERGIES No Information ENCOUNTERS Encounter Location Date Diagnosis [place] [address] [place] [id number] [place] [address] 67434- 0082 Jan, [place] [address] 36963- 5230 Dec, [place] [address] 04095- 6078 Dec, [place] [address] 56341- 2509 Nov, Schizoaffective disorder, depressive type F25.1 and BMI 45.0 -49.9, adult Z68.42 [place] [address] 46506- 7922 Nov, [place] [address] 09219- 8160 Nov, [place] [address] 12480- 1377 Nov, Schizoaffective disorder, depressive type F25.1 [place] [address] 19556- 4430 Nov, Well woman exam Z01.419 ; BMI 45.0-49.9, adult Z68.42 ; Screening breast examination Z12.31 and Dietary counseling and surveillance Z71.3 [place] [address] [place] [id number] [place] [address] 56041- 7997 Nov, Paranoid schizophrenia F20.0 [place] [address] 19319- 5877 Nov, Gastroesophageal reflux disease, esophagitis presence not specified K21.9 [place] [address] 28443- 3294 Oct, Paranoid schizophrenia F20.[address] [facility] [id number] [address] Oct Chronic pain syndrome G89.4 and Schizoaffective disorder, depressive type F25.1 [place] [address] [address] 390[address] Oct, Chronic pain syndrome G89.4 and Schizoaffective disorder, depressive type F25.1 [place] [address] [place] [address] 97222- 7215 Oct, Type 2 diabetes mellitus without complication, without long- term current use of insulin E11.9 [place] [address] [place] [id number] [place] [address] 75053- 3147 Oct, Essential hypertension I10 and DM neuro manif type II E11.49 [place] [address] [place] [id number] [place] [address] 82505- 9379 Oct, [place] [address] [place] [address] 95467- 1004 Oct, Schizoaffective disorder, depressive type F25.1 and BMI 45.0 -49.9, adult Z68.42 [place] [address] [address] 6314 Oct, [place] [address] [place] [address] 33908- 0926 Oct, Paranoid schizophrenia F20.0 [place] [address] [place] [address] 45110- 1103 Oct, Type 2 diabetes mellitus with diabetic neuropathic arthropathy, 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 ; Essential hypertension I10 ; Hypothyroidism (acquired) E03.9 ; Chronic obstructive pulmonary disease, unspecified COPD type J44.9 and Diabetic polyneuropathy associated with type 2 diabetes mellitus E11.42 [place] [address] [place] [address] 32490- 9963 Sep, Paranoid schizophrenia F20.0 [facility] [address] [address] 75[address] Sep, Paranoid schizophrenia F20.0 and BMI 45.0-49.9, adult Z68.42 [facility] [address] [address] 6038 Sep, Schizoaffective disorder, depressive type F25.1 [facility] [address] [id number] [place] [address] 19395- 7503 Sep, [facility] [address] [id number] [place] [address] 25673- 8103 Sep, Paranoid schizophrenia F20.0 [facility] [address] [id number] [place] [address] 94096- 4866 Sep, [facility] [address] [id number] [place] [address] 86361- 4867 Sep, Hypothyroidism (acquired) E03.9 [facility] [address] [id number] [place] [address] 69174- 8750 Sep, [facility] [address] [id number] [place] [address] 24919- 0698 August, Schizoaffective disorder, depressive type F25.1 [facility] [address] [address] 0834 August, [facility] [address] [id number] [place] [address] 42633- 6944 August, [facility] [address] [address] 8281 August, [facility] [address] [id number] [place] [address] 06945- 7261 August, Paranoid schizophrenia F20.0 [facility] [address] [address] 3945 August, History of lupus Z87.39 and Chronic pain syndrome G89.4 [facility] [address] [id number] [place] [address] 79953- 1060 August, [facility] [address] 87300 -8487 August, Seasonal allergic rhinitis, unspecified trigger J30.2 and BMI 45.0-49.9, adult Z68.42 [place] [address] 07808- 1348 Jul, Schizoaffective disorder, depressive type F25.1 [place] [address] 51676- 5874 Jul, [place] [address] 63973- 9052 Jul, Hypothyroidism (acquired) E03.9 [place] [address] 14142- 9941 Jul, Chronic obstructive pulmonary disease, unspecified COPD type J44.9 and Type 2 diabetes mellitus without complication, without long-term current use of insulin E11.9 [place] [address] 42867- 0784 Jul, Paranoid schizophrenia F20.0 [place] [address] 00887- 8860 Jun, Hypothyroidism (acquired) E03.9 and Seasonal allergic rhinitis due to pollen J30.1 [facility] [address] [id number] [place] [address] 14466 -3060 Jun, Shortness of breath at rest R06.02 ; COPD exacerbation J44.1 and BMI 45.0-49.9, adult Z68.42 [place] [address] 25951- 5583 Jun, [place] [address] 85577- 4414 Jun, Paranoid schizophrenia F20.0 ; Depression with anxiety F41.8 and BMI 45.0-49.9, adult Z68.42 [facility] [id number] [place] [address] Jun, Schizoaffective disorder, depressive type F25.1 [facility] [id number] [place] [address] [id number] Jun, Dental caries K02.9 [facility] [address] 259007- 2627 Jun, Paranoid schizophrenia F20.0 [facility] [address] [place] [id number]- 9326 May, Migraine without aura and without status migrainosus, not intractable G43.009 ; DM neuro manif type II E11.49 and Type 2 diabetes mellitus without complication, without long-term current use of insulin E11.9 [facility] [address] [id number] [place] [address] 83101- 0765 May, Migraine without aura and without status migrainosus, not intractable G43.009 [facility] [address] [id number] [place] [address] 19676- 8461 May, Depression with anxiety F41.8 [facility] [id number] [place] [address] [id number] May, [facility] [address] [id number] [place] [address] 19658- 1521 May, [facility] [address] [id number] [place] [address] 45481- 6635 May, [facility] [address] [place] [id number] [place] [address] 76453- 2583 May, Hypothyroidism (acquired) E03.9 [facility] [address] [id number] [place] [address] 27927- 3719 May, Paranoid schizophrenia F20.0 [facility] [address] [place] [id number] [place] [address] 72819- 2807 08 May, 2017 Type 2 diabetes mellitus [...] N32.81 and Controlled substance agreement signed Z79.899 [place] [address] 50826- 6764 May, Controlled substance agreement signed Z79.899 [place] [address] 25815- 6783 Apr, [facility] [address] [id number] Apr, Dental examination Z01.20 [place] [address] 47540- 0683 Apr, Paranoid schizophrenia F20.0 [place] [address] 54749- 3123 Apr, Hypertension, unspecified type I10 [place] [address] 59742- 9845 Apr, Paranoid schizophrenia F20.0 [place] [address] 20244- 7617 Apr, [place] [address] 43805- 5887 Apr, Tobacco abuse Z72.0 [place] [address] 95288- 6765 Apr, [facility] [address] [id number] [place] [address] 22303- 0051 Mar, [facility] [address] [id number] [place] [address] 92264- 2909 Mar, Paranoid schizophrenia F20.0 and BMI 45.0-49.9, adult Z68.42 [facility] [address] [place] [id number] [place] [address] 95553- 5128 Mar, Schizoaffective disorder, depressive type F25.1 [facility] [address] [place] [id number] [place] [address] 23880- 5495 Mar, [facility] [address] 42972- 3826 Mar, Hypothyroidism, unspecified type E03.9 [facility] [address] [place] [id number] [place] [address] 56902- 1118 Mar, Schizoaffective disorder, depressive type F25.1 [facility] [address] [place] [id number] [place] [address] 88294 -9755 Feb, Gastroenteritis K52.9 and BMI 45.0-49.9, adult Z68.42 [facility] [address] [place] [id number] [place] [address] 14805- 0961 Feb, [facility] [address] [place] [id number] [place] [address] 72464- 7079 Feb, [facility] [address] [place] [id number] [place] [address] 21129- 0824 Feb, [facility] [address] [place] [id number] [place] [address] 48369- 8616 Feb, [facility] [address] [place] [id number] [place] [address] 41108- 9726 Feb, Paranoid schizophrenia F20.0 [facility] [address] [place] [id number] [place] [address] 98654- 4881 Feb, Gastroesophageal reflux disease without esophagitis K21.9 ; Other seasonal allergic rhinitis J30.2 ; Other allergic rhinitis J30.89 ; Tobacco abuse Z72.0 and BMI 40.0-44.9, adult Z68.41 [place] [address] [place] [id number] [place] [address] 80275- 1968 Feb, Onychomycosis B35.1 ; Callus of foot L84 and DM neuro manif type II E11.49 [place] [address] 33479- 4151 Jan, Chronic allergic rhinitis J30.9 [place] [address] 42188- 9295 Jan, [place] [address] 96649- 0437 Jan, Schizoaffective disorder, depressive type F25.[address] 84465- 7866 Jan, [facility] [address] 80144 -5447 Jan, Sore throat J02.9 and Seasonal allergic rhinitis due to other allergic trigger J30.89 [place] [address] [place] [address] [id number] [place] [address] 39926- 8766 Jan, [facility] [address] [place] [id number] [place] [address] 07569- 5996 Jan, [facility] [address] 56240 -3609 Jan, Chronic allergic rhinitis J30.9 [place] [address] 17247- 3743 27 Dec, 2016 Paranoid schizophrenia F20.0 ; Primary insomnia F51.01 and Schizoaffective disorder, depressive type F25.1 [place] [address] 89397- 8450 Dec, Chronic pain syndrome G89.4 ; Cervicalgia of occipito- atlanto-axial region M54.2 ; Menopausal syndrome (hot flashes) N95.1 and Encounter for immunization Z23 [place] [address] [id number] [place] [address] 45898- 0406 Dec, [place] [address] 81871- 1002 Dec, [place] [address] 40110- 5525 Dec, Paranoid schizophrenia F20.0 [place] [address] 68559- 3149 Dec, Schizoaffective disorder, depressive type F25.1 [place] [address] 50243- 3529 Nov, Hypothyroidism, unspecified type E03.9 [facility] [address] [id number] [place] [address] 98489 -4772 Nov, Acute seasonal allergic rhinitis due to other allergen J30.89 [place] [address] 87989- 2079 Nov, [place] [address] [place] [address] [id number] [place] [address] 74152- 0131 Nov, Hypothyroidism, unspecified type E03.9 and Other elevated white blood cell (WBC) count D72.828 [place] [address] [address] [id number] [place] [address] 21847- 7894 Nov, Schizoaffective disorder, depressive type F25.1 [place] [address] 80353- 9588 Nov, Paranoid schizophrenia F20.0 [place] [address] [place] [address] [id number] [place] [address] 40277- 1137 Nov, Type 2 diabetes mellitus without complication, without long- term current use of insulin E11.9 ; Morbid obesity due to excess calories E66.01 and Chronic pain syndrome G89.4 [place] [address] [place] [address] 83238- 4211 Oct, Paranoid schizophrenia F20.0 [place] [address] [place] [address] [id number] [place] [address] 58766- 3596 Oct, [place] [address] [place] [address] [id number] [place] [address] 49715- 1722 Oct, Schizoaffective disorder, depressive type F25.1 [place] [address] [place] [address] [id number] [place] [address] 09085- 7347 Oct, Hypothyroidism, unspecified type E03.9 and Other elevated white blood cell (WBC) count D72.828 [place] [address] [place] [id number] [place] [address] 71791- 5737 Oct, Morbid obesity due to excess calories E66.01 ; Chronic obstructive pulmonary disease, unspecified COPD type J44.9 ; History of lupus Z87.39 ; Hypothyroidism, unspecified type E03.9 ; Gastroesophageal reflux disease without esophagitis K21.9 ; Primary insomnia F51.01 and Chronic pain syndrome G89.4 [place] [address] [place] [address] 41967- 7196 Sep, [place] [address] [address]- 6972 Sep, [place] [address] [place] [id number] [place] [address] 61900- 7438 Sep, [place] [address] [place] [address] 45612- 7478 Sep, Paranoid schizophrenia F20.0 [place] [address] [place] [id number] [place] [address] 53825- 9101 Sep, [place] [address] [place] [address] 10201- 3889 Sep, Paranoid schizophrenia F20.0 [place] [address] [address]- 1286 Sep, [place] [address] [place] [id number] [place] [address] 00984- 1160 August, Paranoid schizophrenia F20.0 [place] [address] [place] [address] 64389- 0642 Jul, [place] [address] [place] [id number] [place] [address] 54629- 6928 Jul, Type 2 diabetes mellitus without complication, without long- term current use of insulin E11.9 ; Morbid obesity due to excess calories E66.01 ; Depression with anxiety F41.8 ; Hypothyroidism, unspecified type E03.9 ; Seasonal allergic rhinitis due to other allergic trigger J30.89 ; Pain, dental K08.89 and Gastroesophageal reflux disease without esophagitis K21.9 [facility] [address] [place] [address] [id number] Jul, Dental examination Z01.20 [place] [address] [address] [id number] [place] [address] 06160- 0935 07 Jul, 2016 Paranoid schizophrenia F20.0 [place] [address] [place] [address] [id number] [place] [address] 80660- 6050 13 Jun, 2016 Paranoid schizophrenia F20.0 and Depression with anxiety F41.8 [place] [address] [place] [address] 12969- 9123 Jun, Paranoid schizophrenia F20.0 and Depression with anxiety F41.8 [place] [address] [place] [address] 55064- 8421 09 Jun, 2016 [place] [address] [id number] [place] [address] 26609- 7176 08 Jun, 2016 [facility] [address], [place] [address] -1711 08 Jun, 2016 Seasonal allergic rhinitis due to other allergic trigger J30.89 [facility] [id number] [place] [address] 03328 -0672 May, Sore throat J02.9 ; Other viral agents as the cause of diseases classified elsewhere B97.89 and Acute upper respiratory infection, unspecified J06.9 [place] [address] [id number] [place] [address] 20944- 9238 May, Paranoid schizophrenia F20.0 and Depression with anxiety F41.8 [place] [address] 50654- 6792 Apr, Other seasonal allergic rhinitis J30.2 [place] [address] 87631- 9339 Apr, Paranoid schizophrenia F20.0 and Depression with anxiety F41.8 [facility] [address] 05836 -2642 Apr, Bronchitis J40 and Sore throat J02.9 [place] [address] 62792- 5358 Apr, Type 2 diabetes mellitus without complication, without long- term current use of insulin E11.9 [facility] [place] [address] 97027 -3201 Apr, Bronchitis J40 [place] [address] 04401- 7631 Apr, [place] [address] [id number] [place] [address] 39246- 1998 Apr, [place] [address] [id number] [place] [address] 53049- 1323 Mar, Type 2 diabetes mellitus without complication, [...] R60.9 and Other seasonal allergic rhinitis J30.2 [place] [id number] [place] [address] 16855- 0668 Mar, Paranoid schizophrenia F20.0 and Depression with anxiety F41.8 [facility] [id number] [place] [address] 80189- 1792 Feb, [place] [address] 04261- 4445 Feb, [place] [address] [id number] [place] [address] 88182- 6940 Feb, [place] [address] 68091- 0342 Feb, [place] [address] [id number] [place] [address] 45454- 5951 Feb, Type 2 diabetes mellitus without complication, without long- term current use of insulin E11.9 ; ARIAS on CPAP G47.33 and Preoperative evaluation to rule out surgical contraindication Z01.818 [place] [address] [address] [id number] [place] [address] 54358- 6464 Feb, Paranoid schizophrenia F20.0 and Depression with anxiety F41.8 [place] [address] [id number] [place] [address] 75773- 2159 Jan, [place] [address] 33279- 1383 Jan, Paranoid schizophrenia F20.0 and Depression with anxiety F41.8 [place] [id number] [place] [address] 91917- 4962 Jan, [facility] [id number] [place] [address] 65240- 6580 Jan, Muscle strain T14.8 [facility] [id number] [place] [address] 25083- 4403 Jan, Paranoid schizophrenia F20.0 [facility] [address] [place] [address] 31057- 0523 Jan, [facility] [id number] [place] [address] 68972- 5074 Jan, Paranoid schizophrenia F20.0 and Depression with anxiety F41.8 [facility] [id number] [place] [address] 78377- 0553 Jan, [facility] [id number] [place] [address] 49178- 0138 Jan, [facility] [id number] [place] [address] 70584- 6518 Dec, [facility] [id number] [place] [address] 38545- 2302 Dec, Paranoid schizophrenia F20.0 [facility] [id number] [place] [address] 37608- 8033 16 Dec, 2015 Paranoid schizophrenia F20.0 and Depression with anxiety F41.8 [facility] [id number] [place] [address] 56023- 9555 Nov, [facility] [id number] [place] [address] 58761- 4042 Nov, Paranoid schizophrenia F20.0 [facility] [id number] [place] [address] 88948- 5061 Nov, Paranoid schizophrenia F20.0 and Depression with anxiety F41.8 [facility] [id number] [place] [phone] Nov, Type 2 diabetes mellitus without complication, without long- term current use of insulin E11.9 ; Paranoid schizophrenia F20.0 ; Chronic obstructive pulmonary disease, unspecified COPD type J44.9 ; Morbid obesity due to excess calories E66.01 and Parkinsonian tremor G20 [facility] [id number] [place] [address] 24047- 5953 Nov, [place] [address] [id number] [place] [address] 44891- 9064 Oct, Paranoid schizophrenia F20.0 [place] [address] [address] [place] [id number] [place] [address] 17326- 1564 Oct, Paranoid schizophrenia F20.0 [place] [address] [place] [id number] [place] [address] 32069- 0305 Oct, Paranoid schizophrenia F20.0 and Depression with anxiety F41.8 [place] [address] [place] [id number] [place] [address] 87341- 8551 Oct, [place] [address] [place] [id number] [place] [address] 06397- 0749 Oct, Paranoid schizophrenia F20.0 and Depression with anxiety F41.8 [place] [address] [place] [id number] [place] [address] 38754- 4491 Oct, Nasal sore J34.89 [place] [address] [place] [id number] [place] [address] 60526- 2961 Oct, Type 2 diabetes mellitus without complication, without long- term current use of insulin E11.9 ; Depression with anxiety F41.8 ; Hypothyroidism, unspecified type E03.9 and History of lupus Z87.39 [place] [id number] [place] [address] 35077- 7881 Oct, [place] [address] [place] [id number] [place] [address] 55696- 8696 Oct, Type 2 diabetes mellitus without complication, [...] Z87.39 [facility] [address] [address] [id number] [place] [address] 88999- 7769 Feb, [facility] [address] [place] [address] [id number] [place] [address] 59204- 8086 Jan, [facility] [address] [place] [address] [id number] [place] [address] 55929- 3633 Jan, [facility] [address] [place] [address] [id number] [place] [address] 71299- 4644 Jan, [facility] [address] [place] [address] [id number] [place] [address] 79717- 1879 Dec, [facility] [address] [place] [address] [id number] [place] [address] 50302- 5382 Nov, [facility] [address] [place] [id number] [place] [address] 32799- 3019 Nov, [facility] [address] [place] [id number] [place] [address] 26099- 6703 Oct, [facility] [address] [place] [id number] [place] [address] 20242- 6043 Oct, [facility] [address] [id number] [address] 2861 Oct, [facility] [address] [place] [id number] [place] [address] 88404- 9839 Sep, Allergic rhinitis 477.9 [facility] [address] [place] [id number] [place] [address] 42779- 4209 Sep, Rhinitis, allergic 477.9 [facility] [address] [place] [id number] [place] [address] 25638- 5804 Sep, Rhinitis, allergic 477.9 [facility] [address] [address] 3291 Sep, [facility] [place] [facility] [address] [place] [id number] [address]- 7197 August, [facility] [address] [id number] [place] [address]- 0483 August, [facility] [place] [facility] [address] [id number] [place] [address]- 1876 August, [facility] [place] [facility] [address] [id number] [place] [address]- 0800 Jul, [facility] [place] [facility] [address] [id number] [place] [address]- 0062 Jul, [facility] [place] [facility] [address] [id number] [place] [address]- 1006 Jul, [facility] [place] [facility] [address] [id number] [place] [address]- 1030 Jun, [facility] [place] [facility] [address] [id number] [place] [address]- 5740 Jun, [facility] [place] [facility] [address] [id number] [place] [address]- 1147 Jun, [facility] [place] [facility] [address] [id number] [place] [address]- 6[address] Jun, [facility] [place] [facility] [address] [id number] [place] [address]- 1271 Jun, [facility] [place] [facility] [address] [id number] [place] [address]- 0346 Jun, [facility] [place] [facility] [address] [id number] [place] [address]- 7297 Jun, [facility] [place] [facility] [address] [id number] [place] [address]- 6099 Jun, [facility] [place] [facility] [address] [id number] [place] [address]- 4226 May, [facility] [place] [facility] [address] [id number] [place] [address]- 6702 May, [facility] [place] [facility] [address] [id number] [place] [address]- 3300 May, [facility] [place] [facility] [address] [id number] [place] [address]- 9396 May, [facility] [place] [facility] [address] [facility] [id number] [place] [address]- 8509 Apr, [facility] [place] [facility] [address] [id number] [place] [address]- 1848 Mar, [facility] [place] [facility] [address] [id number] [place] 1856 Mar, [facility] [place] [facility] [address] [id number] [place] 1712 Mar, [facility] [place] [facility] [address] [id number] [place] [address]- 8781 Mar, [facility] [place] [facility] [address] [id number] [place] [address]- 0432 Mar, [facility] [place] [facility] [address] [id number] [place] 3222 Mar, [facility] [place] [facility] [address] [id number] [place] [address]- 3001 Mar, [facility] [place] [facility] [address] [id number] [place] [address]- 2800 Mar, [facility] [place] [facility] [address] [id number] [address]- 0085 Mar, [facility] [place] [facility] [address] [id number] [place] [address]- 5667 Feb, [facility] [place] [facility] [address] [id number] [place] [address]- 4231 Feb, [facility] [place] [facility] [address] [facility] [id number] [place] [address]- 5366 Feb, [facility] [place] [facility] [address] [id number] [place] [address]- 7786 17 Feb, 2014 [facility] [place] [facility] [address] [id number] [place] [address]- 6417 14 Feb, 2014 [facility] [place] [facility] [address] [id number] [place] [address]- 4494 14 Feb, 2014 [facility] [place] [facility] [address] [id number] [place] [address]- 3689 12 Feb, 2014 [facility] [place] [facility] [address] [id number] [place] [address]- 6968 12 Feb, 2014 [facility] [place] [facility] [address] [id number] [place] [address]- 0630 23 Jan, 2014 [facility] [place] [facility] [address] [id number] [place] [address]- 8121 23 Jan, 2014 [facility] [place] [facility] [address] [id number] [place] [address]- 1294 16 Jan, 2014 [facility] [place] [facility] [address] [id number] [place] [address]- 1390 16 Jan, 2014 [facility] [place] [facility] [address] [id number] [place] [address]- 2698 15 Jan, 2014 [facility] [place] [facility] [address] [id number] [place] [address]- 5938 15 Jan, 2014 [facility] [place] [facility] [address] [id number] [place] [address]- 5113 14 Jan, 2014 [facility] [place] [facility] [address] [id number] [place] [address]- 1852 14 Jan, 2014 [facility] [place] [facility] [address] [id number] [place] [address]- 1275 14 Jan, 2014 [facility] [place] [facility] [address] [id number] [place] [address]- 5757 14 Jan, 2014 [facility] [place] [facility] [address] [id number] [place] [address]- 8048 Dec, [facility] [place] [facility] [address] [id number] [place] [address]- 1089 Dec, [facility] [place] [facility] [address] [id number] [place] [address]- 3254 Dec, [facility] [place] [facility] [address] [id number] [place] [address]- 2587 Dec, [facility] [place] [facility] [address] [id number] [place] [address]- 1213 Nov, [facility] [place] [facility] [address] [id number] [place] [address]- 9626 Nov, [facility] [place] [facility] [address] [id number] [place] [address]- 9867 Nov, [facility] [place] [facility] [address] [id number] [place] [address]- 1870 Nov, [facility] [place] [facility] [address] [id number] [place] [address]- 9534 Nov, [facility] [place] [facility] [address] [id number] [place] [address]- 3063 Oct, [facility] [place] [facility] [address] [id number] [place] [address]- 7180 Oct, [facility] [place] [facility] [address] [id number] [place] [address]- 7522 Oct, [facility] [place] [facility] [address] [id number] [place] [address]- 2274 Oct, [facility] [place] [facility] [address] [id number] [place] [address]- 8447 Sep, [facility] [place] [facility] [address] [id number] [place] [address]- 6073 Sep, [facility] [place] [facility] [address] [id number] [place] [address]- 2489 Sep, [facility] [place] [facility] [address] [id number] [place] [address]- 3456 Sep, [facility] [place] [facility] [address] [id number] [place] [address]- 3098 Sep, [facility] [place] [facility] [address] [id number] [place] [address]- 4607 Sep, [facility] [place] [facility] [address] [id number] [place] [address]- 1363 Sep, [facility] [place] [facility] [address] [id number] [place] [address]- 5762 Sep, [facility] [place] [facility] [address] [id number] [place] [address]- 4651 August, [facility] [place] [facility] [address] [id number] [place] [address]- 5318 August, [facility] [place] [facility] [address] [id number] [place] [address]- 9439 August, [facility] [place] [facility] [address] [id number] [place] [address]- 3634 August, [facility] [place] [facility] [address] [id number] [place] [address]- 1371 August, [facility] [place] [facility] [address] [id number] [place] [address]- 5061 August, [facility] [place] [facility] [address] [id number] [place] [address]- 0940 August, [facility] [place] [facility] [address] [id number] [place] [address]- 5425 Jul, [facility] [place] [facility] [address] [id number] [place] [address]- 8107 Jul, [facility] [place] [facility] [address] [id number] [place] [address]- 2854 Jul, [facility] [place] [facility] [address] [id number] [place] [address]- 7983 Jul, [facility] [place] [facility] [address] [id number] [place] [address]- 5289 Jul, [facility] [place] [facility] [address] [id number] [place] [address]- 5278 Jul, [facility] [place] [facility] [address] [id number] [place] [address]376 Jul, [facility] [place] [facility] [address] [id number] [place] [address]- 6054 Jul, [facility] [place] [facility] [address] [id number] [place] [address]- 5865 Jul, [facility] [place] [facility] [address] [id number] [place] [address]- 4973 Jul, [facility] [place] [facility] [address] [id number] [place] [address]- 1522 Jul, [facility] [place] [facility] [address] [id number] [place] [address]- 3868 Jul, [facility] [place] [facility] [address] [id number] [place] [address]- 1418 Jun, [facility] [place] [facility] [address] [id number] [place] [address]- 3674 Jun, [facility] [place] [facility] [address] [id number] [place] [address]- 3793 Jun, [facility] [place] [facility] [address] [id number] [place] [address]- 3847 Jun, [facility] [place] [facility] [address] [id number] [place] [address]- 4017 Jun, [facility] [place] [facility] [address] [id number] [place] [address]- 9322 May, [facility] [place] [facility] [address] [id number] [place] [address]- 3353 May, [facility] [place] [facility] [address] [id number] [place] [address]- 4590 May, [facility] [place] [facility] [address] [id number] [place] [address]- 7383 May, [facility] [place] [facility] [address] [id number] [place] [address]- 5146 May, [facility] [place] [facility] [address] [id number] [place] [address]- 0957 May, [facility] [place] [facility] [address] [id number] [place] [address]- 2653 May, [facility] [place] [facility] [address] [id number] [place] [address]- 0501 May, [facility] [place] [facility] [address] [id number] [place] [address]- 0390 Mar, [facility] [place] [facility] [address] [id number] [place] [address]- 5287 Mar, [facility] [place] [facility] [address] [id number] [place] [address]- 3309 Mar, [facility] [place] [facility] [address] [id number] [place] [address]- 3781 Mar, [facility] [place] [facility] [address] [facility] [id number] [place] [address]- 4776 Mar, [facility] [place] [facility] [address] [id number] [address]- 5177 Mar, [facility] [place] [facility] [address] [id number], [place] [address]- 7027 Feb, [facility] [place] [facility] [address] [id number] [place] [address]- 9768 Feb, [facility] [place] [facility] [address] [facility] [id number] [place] [address]- 1723 Jan, [facility] [place] [facility] [address] [id number] [place] [address]- 2064 Jan, [facility] [place] [facility] [address] [id number] [place] [address]- 8778 Jan, [facility] [address] [id number] [place] [address]- 9377 Jan, [facility] [place] [facility] [address] [id number] [place] [address]- 2733 Jan, [facility] [address] [id number] [place] [address]- 4453 Jan, [facility] [place] [facility] [address] [id number] [place] [address]- 0523 Jan, [facility] [address] [id number] [place] [address]- 6144 Jan, [facility] [place] [facility] [address] [id number] [place] [address]- 5079 Jan, [facility] [place] [facility] [address] [id number] [place] [address]- 3559 Jan, [facility] [address] [id number] [place] [address]- 7997 Dec, [facility] [place] [facility] [address] [id number] [place] [address]- 4881 Nov, [facility] [place] [facility] [address] [id number] [place] [address]- 6661 Nov, [facility] [place] [facility] [address] [id number] [place] [address]- 0369 Nov, [facility] [place] [facility] [address] [id number] [place] [address]- 4231 Oct, [facility] [place] [facility] [address] [id number] [place] [address]- 2542 Oct, [facility] [place] [facility] [address] [id number] [place] [address]- 2546 August, [facility] [place] [facility] [address] [id number] [place] [address]- 3460 Apr, [facility] [address] [id number] [address]- 0303 Apr, [facility] [address] [address]- 5828 Feb, [facility] [address] [address]- 8081 Feb, [facility] [address] [address]- 2967 Dec, [facility] [address] 6688 Dec, [facility] [id number] [place] [address] 24268- 3363 Oct, [facility] [address] [address]- 3874 Oct, [facility] [address] [address]- 7344 Oct, [facility] [address] [id number] [address]- 9817 Jul, IMMUNIZATIONS No Known Immunizations SOCIAL HISTORY [...] for psychosis/mental illness , last one in [place] at [facility] 4 years ago
--- OUTSIDE RECORDS SUMMARY | 2018-09-02 13:35 | XMS REPORT ---
Author Author SOTO STRICKLAND Organization [facility] Address [address] [place] [address] Care Team Providers Care First Aid Director Name Role Phone SOTO STRICKLAND Unavailable PROBLEMS Type Condition ICD9-CM Code [id number] Code Onset Dates Condition Status SNOMED Code Problem OAB (overactive bladder) N32.81 Active 700477683 Problem Depression with anxiety F41.8 Active 862367408 Problem Other seasonal allergic rhinitis J30.2 Active 731710091 Problem Chronic obstructive pulmonary disease, unspecified COPD type J44.9 Active 78911774 Problem Tobacco abuse Z72.0 Active 617678043 Problem Morbid obesity due to excess calories E66.01 Active 099466372 Problem Dyslipidemia E78.5 Active 699871948 Problem Hypothyroidism (acquired) E03.9 Active 039614512 Problem Essential hypertension I10 Active 48590062 Problem Diabetic polyneuropathy associated with type 2 diabetes mellitus E11.42 Active 929506719 Problem Type 2 diabetes mellitus with diabetic neuropathic arthropathy, 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 Active 780126266 Problem Type 2 diabetes mellitus without complication, without long-term current use of insulin E11.9 Active 129541163 Problem Paranoid schizophrenia F20.0 Active 86040910 Problem Chronic pain syndrome G89.4 Active 294717318 Problem Migraine without aura and without status migrainosus, not intractable G43.009 Active 984048315 Problem Gastroesophageal reflux disease, esophagitis presence not specified K21.9 Active 604440106 Problem Seasonal allergic rhinitis due to pollen J30.1 Active 51799667 Problem COPD exacerbation J44.1 Active 497793306 Problem Seasonal allergic rhinitis due to other allergic trigger J30.89 Active 083035480 Problem Schizoaffective disorder, depressive type F25.1 Active 81271110 Problem History of lupus Z87.39 Active 917159589 Problem Gastroesophageal reflux disease without esophagitis K21.9 Active 195778410 Problem Menopausal syndrome (hot flashes) N95.1 Active 132112711 Problem Other allergic rhinitis J30.89 Active 016291932 Problem Primary insomnia F51.01 Active 6348907 Problem DM neuro manif type II E11.49 Active 59378065 ALLERGIES No Information ENCOUNTERS Encounter Location Date Diagnosis [facility] [id number] [place] [address] 76843- 2727 Jan, [place] [address] 9[address]21- 8223 Dec, [place] [address] 95350- 3710 Dec, [place] [address] 64086- 2145 Nov, Schizoaffective disorder, depressive type F25.1 and BMI 45.0 -49.9, adult Z68.42 [facility] [address] 91195- 7067 Nov, [place] [address] 51806- 4182 Nov, [place] [address] 15020- 8823 Nov, Schizoaffective disorder, depressive type F25.1 [place] [address] 75308- 0646 Nov, Well woman exam Z01.419 ; BMI 45.0-49.9, adult Z68.42 ; Screening breast examination Z12.31 and Dietary counseling and surveillance Z71.3 [facility] [id number] [place] [address] 52945- 8721 Nov, Paranoid schizophrenia F20.0 [place] [address] 20477- 6424 Nov, Gastroesophageal reflux disease, esophagitis presence not specified K21.9 [place] [address] 35271- 8142 Oct, Paranoid schizophrenia F20.0 [facility] [id number] [address] Oct Chronic pain syndrome G89.4 and Schizoaffective disorder, depressive type F25.1 [place] [address], [place] [address] 0606 Oct, Chronic pain syndrome G89.4 and Schizoaffective disorder, depressive type F25.1 [place] [address] [place] [address] 76574- 0566 Oct, Type 2 diabetes mellitus without complication, without long- term current use of insulin E11.9 [place] [id number] [place] [address] 93563- 6628 Oct, Essential hypertension I10 and DM neuro manif type II E11.49 [place] [id number] [place] [address] 54153- 5343 Oct, [place] [address] [place] [address] 23953- 2408 Oct, Schizoaffective disorder, depressive type F25.1 and BMI 45.0 -49.9, adult Z68.42 [facility] [address] [address] 0208 Oct, [place] [address] [place] [address] 36855- 0243 Oct, Paranoid schizophrenia F20.0 [place] [address] [place] [address] 32264- 6284 Oct, Type 2 diabetes mellitus with diabetic neuropathic arthropathy, 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 ; Essential hypertension I10 ; Hypothyroidism (acquired) E03.9 ; Chronic obstructive pulmonary disease, unspecified COPD type J44.9 and Diabetic polyneuropathy associated with type 2 diabetes mellitus E11.42 [place] [address] [place] [address] 17908- 3940 Sep, Paranoid schizophrenia F20.0 [facility] [address] [address] 3106 Sep, Paranoid schizophrenia F20.0 and BMI 45.0-49.9, adult Z68.42 [facility] [id number] [address] 4762 Sep, Schizoaffective disorder, depressive type F25.1 [facility] [id number] [place] [address] 00236- 1228 Sep, [facility] [id number] [place] [address] 68589- 0783 Sep, Paranoid schizophrenia F20.0 [facility] [id number] [place] [address] 78019- 5930 Sep, [facility] [id number] [place] [address] 81979- 4544 Sep, Hypothyroidism (acquired) E03.9 [facility] [id number] [place] [address] 38079- 2149 Sep, [facility] [id number] [place] [address] 53373- 3444 August, Schizoaffective disorder, depressive type F25.1 [facility] [id number] [address] 0569 August, [facility] [id number] [place] [address] 89710- 2212 August, [facility] [address], [place] [address] 1073 August, [facility] [id number] [place] [address] 64604- 1804 August, Paranoid schizophrenia F20.0 [facility] [address], [place] [address] 6542 August, History of lupus Z87.39 and Chronic pain syndrome G89.4 [facility] [id number] [place] [address] 50608- 1678 August, [facility] [address] 74[address] -9434 August, Seasonal allergic rhinitis, unspecified trigger J30.2 and BMI 45.0-49.9, adult Z68.42 [place] [address] 17561- 0792 Jul, Schizoaffective disorder, depressive type F25.1 [place] [address] 18838- 5138 Jul, [place] [address] 22669- 5833 Jul, Hypothyroidism (acquired) E03.9 [place] [address] 99302- 1308 Jul, Chronic obstructive pulmonary disease, unspecified COPD type J44.9 and Type 2 diabetes mellitus without complication, without long-term current use of insulin E11.9 [place] [address] 66931- 2798 Jul, Paranoid schizophrenia F20.0 [place] [address] 87802- 7457 Jun, Hypothyroidism (acquired) E03.9 and Seasonal allergic rhinitis due to pollen J30.1 [facility] [id number] [place] [address] 38405 -7333 Jun, Shortness of breath at rest R06.02 ; COPD exacerbation J44.1 and BMI 45.0-49.9, adult Z68.42 [place] [address] 47264- 1809 Jun, [place] [address] 60870- 3301 Jun, Paranoid schizophrenia F20.0 ; Depression with anxiety F41.8 and BMI 45.0-49.9, adult Z68.42 [facility] [id number] [place] [address] Jun, Schizoaffective disorder, depressive type F25.1 [facility] [id number] [place] [address] [id number] Jun, Dental caries K02.9 [facility] [address] 716034- 3542 Jun, Paranoid schizophrenia F20.0 [facility] [address] [place] [id number]- 8855 May, Migraine without aura and without status migrainosus, not intractable G43.009 ; DM neuro manif type II E11.49 and Type 2 diabetes mellitus without complication, without long-term current use of insulin E11.9 [facility] [id number] [place] [address] 96769- 1478 May, Migraine without aura and without status migrainosus, not intractable G43.009 [facility] [id number] [place] [address] 46786- 0419 May, Depression with anxiety F41.8 [facility] [id number] [place] [address] [id number] May, [facility] [id number] [place] [address] 65870- 7008 May, [facility] [id number] [place] [address] 88790- 9170 May, [facility] [id number] [place] [address] 87149- 7007 May, Hypothyroidism (acquired) E03.9 [facility] [id number] [place] [address] 34675- 2965 May, Paranoid schizophrenia F20.0 [facility] [address] [place] [address] 82831- 9870 08 May, 2017 Type 2 diabetes mellitus [...] Controlled substance agreement signed Z79.899 [place] [address] 44114- 8133 May, Controlled substance agreement signed Z79.899 [place] [address] 81440- 4991 Apr, [facility] [address] [id number] Apr, Dental examination Z01.20 [place] [address] 45946- 5803 Apr, Paranoid schizophrenia F20.0 [place] [address] 16753- 1652 Apr, Hypertension, unspecified type I10 [place] [address] 08346- 3457 Apr, Paranoid schizophrenia F20.0 [place] [address] 86160- 6450 Apr, [place] [address] 82178- 7806 Apr, Tobacco abuse Z72.0 [place] [address] 69354- 7215 Apr, [facility] [id number] [place] [address] 71906- 5766 Mar, [facility] [id number] [place] [address] 35684- 5818 Mar, Paranoid schizophrenia F20.0 and BMI 45.0-49.9, adult Z68.42 [facility] [id number] [place] [address] 77463- 7166 Mar, Schizoaffective disorder, depressive type F25.1 [facility] [id number] [place] [address] 28386- 4996 Mar, [facility] [address] 31213- 9165 Mar, Hypothyroidism, unspecified type E03.9 [facility] [id number] [place] [address] 66831- 3384 Mar, Schizoaffective disorder, depressive type F25.1 [facility] [id number] [place] [address] 38570 -6300 Feb, Gastroenteritis K52.9 and BMI 45.0-49.9, adult Z68.42 [facility] [id number] [place] [address] 42149- 4284 Feb, [facility] [id number] [place] [address] 51125- 8616 Feb, [facility] [id number] [place] [address] 67795- 7208 Feb, [facility] [id number] [place] [address] 39367- 4180 Feb, [facility] [id number] [place] [address] 64913- 5366 Feb, Paranoid schizophrenia F20.0 [facility] [id number] [place] [address] 02859- 8569 Feb, Gastroesophageal reflux disease without esophagitis K21.9 ; Other seasonal allergic rhinitis J30.2 ; Other allergic rhinitis J30.89 ; Tobacco abuse Z72.0 and BMI 40.0-44.9, adult Z68.41 [place] [address] [place] [address] 31764- 3017 Feb, Onychomycosis B35.1 ; Callus of foot L84 and DM neuro manif type II E11.49 [place] [address] 90639- 1432 Jan, Chronic allergic rhinitis J30.9 [place] [address] 14705- 9889 Jan, [place] [address] 44621- 7371 Jan, Schizoaffective disorder, depressive type F25.[address] 98834- 7318 Jan, [facility] [address] 52050 -5275 Jan, Sore throat J02.9 and Seasonal allergic rhinitis due to other allergic trigger J30.89 [place] [id number] [place] [address] 77341- 5574 Jan, [facility] [id number] [place] [address] 00836- 5173 Jan, [facility] [address] 46914 -2557 Jan, Chronic allergic rhinitis J30.9 [place] [address] 46981- 8213 27 Dec, 2016 Paranoid schizophrenia F20.0 ; Primary insomnia F51.01 and Schizoaffective disorder, depressive type F25.1 [place] [address] 92556- 0058 Dec, Chronic pain syndrome G89.4 ; Cervicalgia of occipito- atlanto-axial region M54.2 ; Menopausal syndrome (hot flashes) N95.1 and Encounter for immunization Z23 [place] [id number] [place] [address] 62922- 9284 Dec, [place] [address] 89239- 6548 Dec, [place] [address] 23526- 9943 Dec, Paranoid schizophrenia F20.0 [place] [address] 66809- 0112 Dec, Schizoaffective disorder, depressive type F25.1 [place] [address] 14727- 4885 Nov, Hypothyroidism, unspecified type E03.9 [facility] [id number] [place] [address] 38162 -3189 Nov, Acute seasonal allergic rhinitis due to other allergen J30.89 [place] [address] 97197- 3866 Nov, [place] [id number] [place] [address] 65770- 0499 Nov, Hypothyroidism, unspecified type E03.9 and Other elevated white blood cell (WBC) count D72.828 [place] [address] [place] [address] 19628- 3516 Nov, Schizoaffective disorder, depressive type F25.1 [place] [address] 03279- 7046 Nov, Paranoid schizophrenia F20.0 [place] [id number] [place] [address] 08368- 4303 Nov, Type 2 diabetes mellitus without complication, without long- term current use of insulin E11.9 ; Morbid obesity due to excess calories E66.01 and Chronic pain syndrome G89.4 [place] [address] [place] [address] 56007- 8914 Oct, Paranoid schizophrenia F20.0 [place] [id number] [place] [address] 34422- 4589 Oct, [place] [id number] [place] [address] 16868- 4997 Oct, Schizoaffective disorder, depressive type F25.1 [place] [address] [place] [address] 51752- 7191 Oct, Hypothyroidism, unspecified type E03.9 and Other elevated white blood cell (WBC) count D72.828 [place] [address] [place] [address] 99725- 7441 Oct, Morbid obesity due to excess calories E66.01 ; Chronic obstructive pulmonary disease, unspecified COPD type J44.9 ; History of lupus Z87.39 ; Hypothyroidism, unspecified type E03.9 ; Gastroesophageal reflux disease without esophagitis K21.9 ; Primary insomnia F51.01 and Chronic pain syndrome G89.4 [place] [address] [place] [address] 84668- 7394 Sep, [place] [address], [place] [address]- 5980 Sep, [place] [id number] [place] [address] 04601- 4539 Sep, [place] [address] [place] [address] 42915- 6353 Sep, Paranoid schizophrenia F20.0 [place] [id number] [place] [address] 21487- 8829 Sep, [place] [address] [place] [address] 54876- 5743 Sep, Paranoid schizophrenia F20.0 [place] [address], [place] [address]- 8452 Sep, [place] [address] [place] [address] 59222- 5050 August, Paranoid schizophrenia F20.0 [place] [address] [place] [address] 02510- 7085 Jul, [place] [address] [place] [address] 61852- 8226 Jul, Type 2 diabetes mellitus without complication, without long- term current use of insulin E11.9 ; Morbid obesity due to excess calories E66.01 ; Depression with anxiety F41.8 ; Hypothyroidism, unspecified type E03.9 ; Seasonal allergic rhinitis due to other allergic trigger J30.89 ; Pain, dental K08.89 and Gastroesophageal reflux disease without esophagitis K21.9 [facility] [address] [place] [address] [id number] Jul, Dental examination Z01.20 [place] [address] [place] [address] 57119- 6122 07 Jul, 2016 Paranoid schizophrenia F20.0 [place] [id number] [place] [address] 35612- 8667 13 Jun, 2016 Paranoid schizophrenia F20.0 and Depression with anxiety F41.8 [place] [address] [place] [address] 62183- 8067 Jun, Paranoid schizophrenia F20.0 and Depression with anxiety F41.8 [place] [address] [place] [address] 91937- 0741 09 Jun, 2016 [place] [id number] [place] [address] 11581- 4079 08 Jun, 2016 [facility] [address], [place] [address] -5186 08 Jun, 2016 Seasonal allergic rhinitis due to other allergic trigger J30.89 [facility] [id number] [place] [address] 29529 -4040 May, Sore throat J02.9 ; Other viral agents as the cause of diseases classified elsewhere B97.89 and Acute upper respiratory infection, unspecified J06.9 [place] [id number] [place] [address] 53691- 3445 May, Paranoid schizophrenia F20.0 and Depression with anxiety F41.8 [place] [address] 60105- 0092 Apr, Other seasonal allergic rhinitis J30.2 [place] [address] 61467- 0233 Apr, Paranoid schizophrenia F20.0 and Depression with anxiety F41.8 [facility] [address] 39147 -3421 Apr, Bronchitis J40 and Sore throat J02.9 [place] [address] 96753- 6656 Apr, Type 2 diabetes mellitus without complication, without long- term current use of insulin E11.9 [facility] [place] [address] 33000 -3003 Apr, Bronchitis J40 [place] [address] 98932- 6551 Apr, [place] [id number] [place] [address] 49969- 6288 Apr, [place] [address] [place] [address] 67906- 1922 Mar, Type 2 diabetes mellitus without complication, [...] R60.9 and Other seasonal allergic rhinitis J30.2 [place] [address] [place] [address] 51607- 9842 Mar, Paranoid schizophrenia F20.0 and Depression with anxiety F41.8 [facility] [id number] [place] [address] 42823- 6616 Feb, [place] [address] 27301- 8732 Feb, [place] [id number] [place] [address] 61662- 0161 Feb, [place] [address] 69576- 6203 Feb, [place] [address] [place] [address] 88241- 5282 Feb, Type 2 diabetes mellitus without complication, without long- term current use of insulin E11.9 ; ARIAS on CPAP G47.33 and Preoperative evaluation to rule out surgical contraindication Z01.818 [place] [address] [place] [address] 96684- 0446 Feb, Paranoid schizophrenia F20.0 and Depression with anxiety F41.8 [place] [id number] [place] [address] 72021- 2282 Jan, [place] [address] 58880- 3010 Jan, Paranoid schizophrenia F20.0 and Depression with anxiety F41.8 [place] [id number] [place] [address] 82344- 8247 Jan, [facility] [id number] [place] [address] 88024- 0565 Jan, Muscle strain T14.8 [facility] [id number] [place] [address] 28017- 7185 Jan, Paranoid schizophrenia F20.0 [facility] [address] [place] [address] 26984- 1096 Jan, [facility] [id number] [place] [address] 52869- 6372 Jan, Paranoid schizophrenia F20.0 and Depression with anxiety F41.8 [facility] [id number] [place] [address] 97806- 4623 Jan, [facility] [id number] [place] [address] 21947- 5953 Jan, [facility] [id number] [place] [address] 25720- 7937 Dec, [facility] [id number] [place] [address] 88631- 8675 Dec, Paranoid schizophrenia F20.0 [facility] [id number] [place] [address] 65140- 9405 16 Dec, 2015 Paranoid schizophrenia F20.0 and Depression with anxiety F41.8 [facility] [id number] [place] [address] 01330- 9004 Nov, [facility] [id number] [place] [address] 42528- 9516 Nov, Paranoid schizophrenia F20.0 [facility] [id number] [place] [address] [id number] Nov, Paranoid schizophrenia F20.0 and Depression with anxiety F41.8 [facility] [id number] [place] [address] [phone] Nov, Type 2 diabetes mellitus without complication, without long- term current use of insulin E11.9 ; Paranoid schizophrenia F20.0 ; Chronic obstructive pulmonary disease, unspecified COPD type J44.9 ; Morbid obesity due to excess calories E66.01 and Parkinsonian tremor G20 [facility] [id number] [place] [address] [id number] Nov, [place] [id number] [place] [address] [phone] [phone] Oct, Paranoid schizophrenia F20.0 [facility] [id number] [place] [address] [id number]- [id number] Oct, Paranoid schizophrenia F20.0 [facility] [id number] [place] [address] [id number] [id number] Oct, Paranoid schizophrenia F20.0 and Depression with anxiety F41.8 [facility] [id number] [place] [address] [id number] [phone] Oct, [facility] [id number] [place] [address] [id number] Oct, Paranoid schizophrenia F20.0 and Depression with anxiety F41.8 [facility] [id number] [place] [address] 37905- 6705 Oct, Nasal sore J34.89 [place] [id number] [place] [address] 45424- 2807 Oct, Type 2 diabetes mellitus without complication, without long- term current use of insulin E11.9 ; Depression with anxiety F41.8 ; Hypothyroidism, unspecified type E03.9 and History of lupus Z87.39 [place] [id number] [place] [address] 50804- 1118 Oct, [place] [id number] [place] [address] 82775- 4575 Oct, Type 2 diabetes mellitus without complication, [...] edema R60.9 and History of lupus Z87.39 [facility] [id number] [place] [address] 54069- 4663 Feb, [facility] [id number] [place] [address] 00501- 7751 Jan, [facility] [id number] [place] [address] 49296- 9966 Jan, [facility] [id number] [place] [address] 00354- 8314 Jan, [facility] [id number] [place] [address] 98725- 4209 Dec, [facility] [id number] [place] [address] 59269- 7036 Nov, [facility] [id number] [place] [address] 96204- 9293 Nov, [facility] [id number] [place] [address] 23262- 2769 Oct, [facility] [id number] [place] [address] 06753- 3970 Oct, [facility] [id number] [address] 3877 Oct, [facility] [id number] [place] [address] 21687- 4436 Sep, Allergic rhinitis 477.9 [facility] [id number] [place] [address] 67592- 8256 Sep, Rhinitis, allergic 477.9 [facility] [id number] [place] [address] 60821- 0672 Sep, Rhinitis, allergic 477.9 [facility] [address] [address] 0759 Sep, [facility] [place] [facility] [id number] [place] [address] 9460 August, [facility] [address] [id number] [place] [address]- 2591 August, [facility] [place] [facility] [address] [id number] [place] [address]- 4976 August, [facility] [place] [facility] [address] [id number] [place] [address]- 1692 Jul, [facility] [place] [facility] [address] [id number] [place] [address]- 0359 Jul, [facility] [place] [facility] [address] [id number] [place] [address]- 1623 Jul, [facility] [place] [facility] [address] [id number] [place] [address]- 3369 Jun, [facility] [place] [facility] [address] [id number] [place] [address]- 6441 Jun, [facility] [place] [facility] [address] [id number] [place] [address]- 3145 Jun, [facility] [place] [facility] [address] [id number] [place] [address]- 0470 Jun, [facility] [place] [facility] [address] [id number] [place] [address]- 9426 Jun, [facility] [place] [facility] [address] [id number] [place] [address]- 1346 Jun, [facility] [place] [facility] [address] [id number] [place] [address]- 0234 Jun, [facility] [place] [facility] [address] [id number] [place] [address]- 9098 Jun, [facility] [place] [facility] [address] [id number] [place] [address]- 6366 May, [facility] [place] [facility] [address] [id number] [place] [address]- 8082 May, [facility] [place] [facility] [address] [id number] [place] [address]- 8373 May, [facility] [place] [facility] [address] [id number] [place] [address]- 0366 May, [facility] [place] [facility] [address] [facility] [id number] [place] [address]- 5097 Apr, [facility] [place] [facility] [address] [id number] [place] [address]- 6311 Mar, [facility] [place] [facility] [address] [id number] [place] 0001 Mar, [facility] [place] [facility] [address] [id number] [place] 1176 Mar, [facility] [place] [facility] [address] [id number] [place] [address]- 2250 Mar, [facility] [place] [facility] [address] [id number] [place] [address]- 5235 Mar, [facility] [place] [facility] [address] [id number] [place] 6303 Mar, [facility] [place] [facility] [address] [id number] [place] [address]- 6325 Mar, [facility] [place] [facility] [address] [id number] [place] [address]- 9747 Mar, [facility] [place] [facility] [address] [id number] [address] 1935 Mar, [facility] [place] [facility] [address] [id number] [place] [address]- 6821 Feb, [facility] [place] [facility] [address] [id number] [place] [address]- 7178 Feb, [facility] [place] [facility] [address] [facility] [id number] [place] [address]- 9056 Feb, [facility] [place] [facility] [address] [id number] [place] [address]- 8792 17 Feb, 2014 [facility] [place] [facility] [address] [id number] [place] [address]- 2741 14 Feb, 2014 [facility] [place] [facility] [address] [id number] [place] [address]- 0825 14 Feb, 2014 [facility] [place] [facility] [address] [id number] [place] [address]- 4384 12 Feb, 2014 [facility] [place] [facility] [address] [id number] [place] [address]- 6419 12 Feb, 2014 [facility] [place] [facility] [address] [id number] [place] [address]- 8922 23 Jan, 2014 [facility] [place] [facility] [address] [id number] [place] [address]- 1421 23 Jan, 2014 [facility] [place] [facility] [address] [id number] [place] [address]- 3564 16 Jan, 2014 [facility] [place] [facility] [address] [id number] [place] [address]- 8128 16 Jan, 2014 [facility] [place] [facility] [address] [id number] [place] [address]- 6929 15 Jan, 2014 [facility] [place] [facility] [address] [id number] [place] [address]- 7809 15 Jan, 2014 [facility] [place] [facility] [address] [id number] [place] [address]- 3054 14 Jan, 2014 [facility] [place] [facility] [address] [id number] [place] [address]- 0812 14 Jan, 2014 [facility] [place] [facility] [address] [id number] [place] [address]- 8991 14 Jan, 2014 [facility] [place] [facility] [address] [id number] [place] [address]- 1537 14 Jan, 2014 [facility] [place] [facility] [address] [id number] [place] [address]- 9763 Dec, [facility] [place] [facility] [address] [id number] [place] [address]- 7041 Dec, [facility] [place] [facility] [address] [id number] [place] [address]- 2077 Dec, [facility] [place] [facility] [address] [id number] [place] [address]- 5562 Dec, [facility] [place] [facility] [address] [id number] [place] [address]- 3036 Nov, [facility] [place] [facility] [address] [id number] [place] [address]- 3515 Nov, [facility] [place] [facility] [address] [id number] [place] [address]- 9589 Nov, [facility] [place] [facility] [address] [id number] [place] [address]- 9696 Nov, [facility] [place] [facility] [address] [id number] [place] [address]- 4546 Nov, [facility] [place] [facility] [address] [id number] [place] [address]- 1885 Oct, [facility] [place] [facility] [address] [id number] [place] [address]- 2698 Oct, [facility] [place] [facility] [address] [id number] [place] [address]- 0968 Oct, [facility] [place] [facility] [address] [id number] [place] [address]- 1685 Oct, [facility] [place] [facility] [address] [id number] [place] [address]- 6048 Sep, [facility] [place] [facility] [address] [id number] [place] [address]- 8171 Sep, [facility] [place] [facility] [address] [id number] [place] [address]- 5928 Sep, [facility] [place] [facility] [address] [id number] [place] [address]- 6672 Sep, [facility] [place] [facility] [address] [id number] [place] [address]- 8171 Sep, [facility] [place] [facility] [address] [id number] [place] [address]- 7541 Sep, [facility] [place] [facility] [address] [id number] [place] [address]- 1835 Sep, [facility] [place] [facility] [address] [id number] [place] [address]- 1239 Sep, [facility] [place] [facility] [address] [id number] [place] [address]- 9781 August, [facility] [place] [facility] [address] [id number] [place] [address]- 5242 August, [facility] [place] [facility] [address] [id number] [place] [address]- 1680 August, [facility] [place] [facility] [address] [id number] [place] [address]- 5243 August, [facility] [place] [facility] [address] [id number] [place] [address]- 3959 August, [facility] [place] [facility] [address] [id number] [place] [address]- 6783 August, [facility] [place] [facility] [address] [id number] [place] [address]- 4939 August, [facility] [place] [facility] [address] [id number] [place] [address]- 5781 Jul, [facility] [place] [facility] [address] [id number] [place] [address]- 0030 Jul, [facility] [place] [facility] [address] [id number] [place] [address]- 7281 Jul, [facility] [place] [facility] [address] [id number] [place] [address]- 0669 Jul, [facility] [place] [facility] [address] [id number] [place] [address]- 0512 Jul, [facility] [place] [facility] [address] [id number] [place] [address]- 7871 Jul, [facility] [place] [facility] [address] [id number] [place] 9426 Jul, [facility] [place] [facility] [address] [id number] [place] [address]- 1093 Jul, [facility] [place] [facility] [address] [id number] [place] [address]- 8679 Jul, [facility] [place] [facility] [address] [id number] [place] [address]- 1472 Jul, [facility] [place] [facility] [address] [id number] [place] [address]- 1179 Jul, [facility] [place] [facility] [address] [id number] [place] [address]- 9864 Jul, [facility] [place] [facility] [address] [id number] [place] [address]- 5734 Jun, [facility] [place] [facility] [address] [id number] [place] [address]- 7085 Jun, [facility] [place] [facility] [address] [id number] [place] [address]- 8214 Jun, [facility] [place] [facility] [address] [id number] [place] [address]- 6982 Jun, [facility] [place] [facility] [address] [id number] [place] [address]- 2012 Jun, [facility] [place] [facility] [address] [id number] [place] [address]- 3887 May, [facility] [place] [facility] [address] [id number] [place] [address]- 2819 May, [facility] [place] [facility] [address] [id number] [place] [address]- 2746 May, [facility] [place] [facility] [address] [id number] [place] [address]- 2612 May, [facility] [place] [facility] [address] [id number] [place] [address]- 9606 May, [facility] [place] [facility] [address] [id number] [place] [address]- 9694 May, [facility] [place] [facility] [address] [id number] [place] [address]- 7632 May, [facility] [place] [facility] [address] [id number] [place] [address]- 9518 May, [facility] [place] [facility] [address] [id number] [place] [address]- 5771 Mar, [facility] [place] [facility] [address] [id number] [place] [address]- 4700 Mar, [facility] [place] [facility] [address] [id number] [place] [address]- 1193 Mar, [facility] [place] [facility] [address] [id number] [place] [address]- 7944 Mar, [facility] [place] [facility] [address] [facility] [id number] [place] [address]- 8226 Mar, [facility] [place] [facility] [address] [id number] [address]- 0703 Mar, [facility] [place] [facility] [address] [id number], [place] [address]- 6053 Feb, [facility] [place] [facility] [address] [id number] [place] [address]- 0264 Feb, [facility] [place] [facility] [address] [facility] [id number] [place] [address]- 7315 Jan, [facility] [place] [facility] [address] [id number] [place] [address]- 7442 Jan, [facility] [place] [facility] [address] [id number] [place] [address]- 3975 Jan, [facility] [address] [id number] [place] [address]- 2182 Jan, [facility] [place] [facility] [address] [id number] [place] [address]- 0697 Jan, [facility] [address] [id number] [place] [address]- 0577 Jan, [facility] [place] [facility] [address] [id number] [place] [address]- 0363 Jan, [facility] [address] [id number] [place] [address]- 5693 Jan, [facility] [place] [facility] [address] [id number] [place] [address]- 5241 Jan, [facility] [place] [facility] [address] [id number] [place] [address]- 6549 Jan, [facility] [address] [id number] [place] [address]- 3034 Dec, [facility] [place] [facility] [address] [id number] [place] [address]- 5910 Nov, [facility] [place] [facility] [address] [id number] [place] [address]- 8830 Nov, [facility] [place] [facility] [address] [id number] [place] [address]- 1195 Nov, [facility] [place] [facility] [address] [id number] [place] [address]- 7153 Oct, [facility] [place] [facility] [address] [id number] [place] [address]- 2547 Oct, [facility] [place] [facility] [address] [id number] [place] [address]- 2546 August, [facility] [place] [facility] [address] [id number] [place] [address]- 7623 Apr, [facility] [id number] [address]- 7720 Apr, [facility] [address] 1034 Feb, [facility] [id number] [address]- 0932 Feb, [facility] [address], [place] [address]- 6378 Dec, [facility] [address] [address]- 5995 Dec, [facility] [address] [address]- 5100 Oct, [facility] [address] [address]- 9262 Oct, [facility] [address] [address]- 5533 Oct, [facility] [id number] [address]- 2666 Jul, IMMUNIZATIONS No Known Immunizations SOCIAL HISTORY Never Assessed REASON FOR VISIT glucose monitor and supplies PLAN OF CARE VITAL SIGNS MEDICATIONS Medication Instructions Dosage Frequency Start Date End Date Duration Status True Metrix Blood Glucose Test - subcutaneously 2 times a day as directed ( pt tests twice daily) 12Oct, 30 days Active True Metrix Meter w/Device as directed Oct, Active RESULTS No Results PROCEDURES No Known [...] for psychosis/mental illness , last one in [place] at [facility] 4 years ago
--- OUTSIDE RECORDS SUMMARY | 2018-09-02 13:36 | XMS REPORT ---
Author Author EDWINUMESH CASIANO Organization [facility] [address] Address [address] [place] [address] Care Team Providers Care Marketing Ambassador Name Role Phone UMESH PINEDA Unavailable PROBLEMS Type Condition ICD9-CM Code XRD33-MI Code Onset Dates Condition Status SNOMED Code Problem OAB (overactive bladder) N32.81 Active 793761927 Problem Depression with anxiety F41.8 Active 435816230 Problem Other seasonal allergic rhinitis J30.2 Active 443923906 Problem Chronic obstructive pulmonary disease, unspecified COPD type J44.9 Active 56332201 Problem Tobacco abuse Z72.0 Active 058637648 Problem Morbid obesity due to excess calories E66.01 Active 685928239 Problem Dyslipidemia E78.5 Active 066075756 Problem Hypothyroidism (acquired) E03.9 Active 562314328 Problem Essential hypertension I10 Active 16453144 Problem Diabetic polyneuropathy associated with type 2 diabetes mellitus E11.42 Active 989847741 Problem Type 2 diabetes mellitus with diabetic neuropathic arthropathy, 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 Active 113946380 Problem Type 2 diabetes mellitus without complication, without long-term current use of insulin E11.9 Active 459481171 Problem Paranoid schizophrenia F20.0 Active 20496771 Problem Chronic pain syndrome G89.4 Active 663853339 Problem Migraine without aura and without status migrainosus, not intractable G43.009 Active 053582032 Problem Gastroesophageal reflux disease, esophagitis presence not specified K21.9 Active 711360853 Problem Seasonal allergic rhinitis due to pollen J30.1 Active 60688401 Problem COPD exacerbation J44.1 Active 226817828 Problem Seasonal allergic rhinitis due to other allergic trigger J30.89 Active 562795281 Problem Schizoaffective disorder, depressive type F25.1 Active 33151358 Problem History of lupus Z87.39 Active 503620669 Problem Gastroesophageal reflux disease without esophagitis K21.9 Active 218962028 Problem Menopausal syndrome (hot flashes) N95.1 Active 135351227 Problem Other allergic rhinitis J30.89 Active 145433241 Problem Primary insomnia F51.01 Active 1165907 Problem DM neuro manif type II E11.49 Active 16963727 ALLERGIES No Information ENCOUNTERS Encounter Location Date Diagnosis [place] [id number] [place] [address] 04199- 9897 Jan, [place] [address] 82648- 2670 Dec, [place] [address] 35497- 4193 Dec, [place] [address] 30989- 5407 Nov, Schizoaffective disorder, depressive type F25.1 and BMI 45.0 -49.9, adult Z68.42 [place] [address] 91617- 3712 Nov, [place] [address] 03033- 9253 Nov, [place] [address] 50922- 3031 Nov, Schizoaffective disorder, depressive type F25.1 [place] [address] 51289- 2981 Nov, Well woman exam Z01.419 ; BMI 45.0-49.9, adult Z68.42 ; Screening breast examination Z12.31 and Dietary counseling and surveillance Z71.3 [place] [id number] [place] [address] 40051- 4785 Nov, Paranoid schizophrenia F20.0 [place] [address] 76949- 1304 09 Nov, 2017 Gastroesophageal reflux disease, esophagitis presence not specified K21.9 [place] [address] 80438- 1698 Oct, Paranoid schizophrenia F20.[address] [facility] [id number] [place] [address] Oct Chronic pain syndrome G89.4 and Schizoaffective disorder, depressive type F25.1 [place] [address], [place] [address] 28[address] Oct, Chronic pain syndrome G89.4 and Schizoaffective disorder, depressive type F25.1 [place] [address] [place] [address] 20489- 3864 Oct, Type 2 diabetes mellitus without complication, without long- term current use of insulin E11.9 [place] [id number] [place] [address] 13810- 4270 Oct, Essential hypertension I10 and DM neuro manif type II E11.49 [place] [id number] [place] [address] 02747- 9809 Oct, [place] [address] [place] [address] 83145- 6255 Oct, Schizoaffective disorder, depressive type F25.1 and BMI 45.0 -49.9, adult Z68.42 [place] [address], [place] [address] 6458 Oct, [place] [address] [place] [address] 53135- 0191 Oct, Paranoid schizophrenia F20.0 [place] [address] [place] [address] 49816- 3398 Oct, Type 2 diabetes mellitus with diabetic neuropathic arthropathy, 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 ; Essential hypertension I10 ; Hypothyroidism (acquired) E03.9 ; Chronic obstructive pulmonary disease, unspecified COPD type J44.9 and Diabetic polyneuropathy associated with type 2 diabetes mellitus E11.42 [place] [address] [place] [address] 72972- 1845 Sep, Paranoid schizophrenia F20.0 [facility] [address], [place] [address] 5312 Sep, Paranoid schizophrenia F20.0 and BMI 45.0-49.9, adult Z68.42 [facility] [address], [place] [address] 6390 Sep, Schizoaffective disorder, depressive type F25.1 [facility] [id number] [place] [address] 72392- 0619 Sep, [facility] [id number] [place] [address] 10149- 5172 Sep, Paranoid schizophrenia F20.0 [facility] [id number] [place] [address] 06266- 6551 Sep, [facility] [id number] [place] [address] 57324- 5444 Sep, Hypothyroidism (acquired) E03.9 [facility] [id number] [address] 6626 Sep, [facility] [id number] [place] [address] 68676- 6484 August, Schizoaffective disorder, depressive type F25.1 [facility] [id number] [address] 1871 August, [facility] [id number] [address] 8421 August, [facility] [id number] [address] 8670 August, [facility] [id number] [place] [address] 05852- 3270 August, Paranoid schizophrenia F20.0 [facility] [address], [place] [address] 0869 August, History of lupus Z87.39 and Chronic pain syndrome G89.4 [place] [address] 99628- 3498 August, [facility] [address] 39474 -4646 August, Seasonal allergic rhinitis, unspecified trigger J30.2 and BMI 45.0-49.9, adult Z68.42 [place] [address] 27599- 0877 Jul, Schizoaffective disorder, depressive type F25.1 [place] [address] 36365- 5498 Jul, [place] [address] 35956- 8033 Jul, Hypothyroidism (acquired) E03.[address] 64819- 2112 Jul, Chronic obstructive pulmonary disease, unspecified COPD type J44.9 and Type 2 diabetes mellitus without complication, without long-term current use of insulin E11.9 [place] [address] 67660- 2425 Jul, Paranoid schizophrenia F20.0 [place] [address] 36523- 8098 Jun, Hypothyroidism (acquired) E03.9 and Seasonal allergic rhinitis due to pollen J30.1 [facility] [id number] [place] [address] 41149 -4063 Jun, Shortness of breath at rest R06.02 ; COPD exacerbation J44.1 and BMI 45.0-49.9, adult Z68.42 [place] [address] 70385- 8588 Jun, [place] [address] 38826- 7486 Jun, Paranoid schizophrenia F20.0 ; Depression with anxiety F41.8 and BMI 45.0-49.9, adult Z68.42 [facility] [id number] [place] [address] Jun, Schizoaffective disorder, depressive type F25.1 [facility] [id number] [place] [address] [id number] Jun, Dental caries K02.9 [facility] [id number] [place] [address] 88896- 8058 Jun, Paranoid schizophrenia F20.0 [facility] [id number] [place] [address] 08406- 4394 May, Migraine without aura and without status migrainosus, not intractable G43.009 ; DM neuro manif type II E11.49 and Type 2 diabetes mellitus without complication, without long-term current use of insulin E11.9 [facility] [id number] [place] [address] 53043- 7039 May, Migraine without aura and without status migrainosus, not intractable G43.009 [facility] [id number] [place] [address] 22152- 0174 May, Depression with anxiety F41.8 [facility] [id number] [place] [address] [id number] May, [facility] [id number] [place] [address] 68471- 8884 May, [facility] [id number] [place] [address] 08990- 4271 May, [facility] [address] 14986- 3653 May, Hypothyroidism (acquired) E03.9 [facility] [id number] [place] [address] 93626- 0917 May, Paranoid schizophrenia F20.0 [facility] [address] 03957- 5122 08 May, 2017 Type 2 diabetes mellitus [...] N32.81 and Controlled substance agreement signed Z79.899 [place] [address] 39102- 6820 May, Controlled substance agreement signed Z79.899 [place] [address] 41546- 4076 Apr, [facility] [address] [id number] Apr, Dental examination Z01.20 [place] [address] 18350- 4586 Apr, Paranoid schizophrenia F20.0 [place] [address] 85289- 7030 Apr, Hypertension, unspecified type I10 [place] [address] 80271- 2480 Apr, Paranoid schizophrenia F20.0 [place] [address] 58659- 8411 Apr, [place] [address] 08081- 3540 Apr, Tobacco abuse Z72.0 [place] [address] 72891- 7990 Apr, [facility] [id number] [place] [address] 14658- 6003 Mar, [facility] [id number] [place] [address] 95541- 4348 Mar, Paranoid schizophrenia F20.0 and BMI 45.0-49.9, adult Z68.42 [facility] [address] 99865- 9622 Mar, Schizoaffective disorder, depressive type F25.1 [facility] [id number] [place] [address] 56304- 4403 Mar, [facility] [id number] [place] [address] 70607- 5570 Mar, Schizoaffective disorder, depressive type F25.1 [facility] [id number] [place] [address] 37957- 3417 Mar, Hypothyroidism, unspecified type E03.9 [facility] [id number] [place] [address] 77888 -9679 Feb, Gastroenteritis K52.9 and BMI 45.0-49.9, adult Z68.42 [facility] [id number] [place] [address] 02884- 9995 Feb, [facility] [id number] [place] [address] 48133- 0743 Feb, [facility] [id number] [place] [address] 83050- 4752 Feb, [facility] [id number] [place] [address] 87367- 0176 Feb, [facility] [id number] [place] [address] 06685- 4439 Feb, Paranoid schizophrenia F20.0 [facility] [id number] [place] [address] 41939- 2224 Feb, Gastroesophageal reflux disease without esophagitis K21.9 ; Other seasonal allergic rhinitis J30.2 ; Other allergic rhinitis J30.89 ; Tobacco abuse Z72.0 and BMI 40.0-44.9, adult Z68.41 [place] [address] 69119- 9448 Feb, Onychomycosis B35.1 ; Callus of foot L84 and DM neuro manif type II E11.49 [place] [address] 85448- 1016 Jan, Chronic allergic rhinitis J30.9 [place] [address] 16866- 9138 Jan, [place] [address] 24701- 9668 Jan, Schizoaffective disorder, depressive type F25.[address] 07655- 1066 Jan, [facility] [address] [place] [address] 98742 -7783 Jan, Sore throat J02.9 and Seasonal allergic rhinitis due to other allergic trigger J30.89 [place] [address] 54854- 3672 Jan, [place] [address] 32283- 2928 Jan, [facility] [address] 63006 -0499 Jan, Chronic allergic rhinitis J30.9 [place] [address] 31609- 4428 Dec, Paranoid schizophrenia F20.0 ; Primary insomnia F51.01 and Schizoaffective disorder, depressive type F25.1 [place] [address] 90302- 9429 Dec, Chronic pain syndrome G89.4 ; Cervicalgia of occipito- atlanto-axial region M54.2 ; Menopausal syndrome (hot flashes) N95.1 and Encounter for immunization Z23 [place] [id number] [place] [address] 56595- 3701 Dec, [place] [address] 56718- 5307 Dec, [place] [address] 84113- 4806 Dec, Paranoid schizophrenia F20.0 [place] [address] 20240- 5798 Dec, Schizoaffective disorder, depressive type F25.1 [place] [address] 85742- 6301 Nov, Hypothyroidism, unspecified type E03.9 [facility] [address] 73848 -7298 Nov, Acute seasonal allergic rhinitis due to other allergen J30.89 [place] [address] 83360- 9132 Nov, [place] [id number] [place] [address] 30113- 9231 Nov, Hypothyroidism, unspecified type E03.9 and Other elevated white blood cell (WBC) count D72.828 [place] [id number] [place] [address] 15684- 5459 Nov, Schizoaffective disorder, depressive type F25.1 [place] [address] 01707- 7093 Nov, Paranoid schizophrenia F20.0 [place] [id number] [place] [address] 46053- 0323 Nov, Type 2 diabetes mellitus without complication, without long- term current use of insulin E11.9 ; Morbid obesity due to excess calories E66.01 and Chronic pain syndrome G89.4 [place] [address] [place] [address] 28987- 2245 Oct, Paranoid schizophrenia F20.0 [place] [id number] [place] [address] 78158- 5781 Oct, [place] [id number] [place] [address] 41004- 5104 Oct, Schizoaffective disorder, depressive type F25.1 [place] [id number] [place] [address] 81164- 5334 Oct, Hypothyroidism, unspecified type E03.9 and Other elevated white blood cell (WBC) count D72.828 [place] [id number] [place] [address] 45477- 5901 Oct, Morbid obesity due to excess calories E66.01 ; Chronic obstructive pulmonary disease, unspecified COPD type J44.9 ; History of lupus Z87.39 ; Hypothyroidism, unspecified type E03.9 ; Gastroesophageal reflux disease without esophagitis K21.9 ; Primary insomnia F51.01 and Chronic pain syndrome G89.4 [place] [address] [place] [address] 16453- 3769 Sep, [place] [address], [place] [address]- 6475 Sep, [place] [id number] [place] [address] 69930- 0945 Sep, [place] [id number] [place] [address] 11888- 2540 Sep, Paranoid schizophrenia F20.0 [place] [id number] [place] [address] 91970- 8404 Sep, [place] [address], [place] [address]- 3415 Sep, Paranoid schizophrenia F20.0 [place] [address], [place] [address]- 6209 Sep, [place] [id number] [place] [address] 43190- 2743 August, Paranoid schizophrenia F20.0 [place] [address] [place] [address] 88130- 3607 Jul, [place] [id number] [place] [address] 72455- 0702 Jul, Type 2 diabetes mellitus without complication, without long- term current use of insulin E11.9 ; Morbid obesity due to excess calories E66.01 ; Depression with anxiety F41.8 ; Hypothyroidism, unspecified type E03.9 ; Seasonal allergic rhinitis due to other allergic trigger J30.89 ; Pain, dental K08.89 and Gastroesophageal reflux disease without esophagitis K21.9 [facility] [address] [place] [address] [id number] 12 Jul, 2016 Dental examination Z01.20 [place] [id number] [place] [address] 70356- 7424 07 Jul, 2016 Paranoid schizophrenia F20.0 [place] [address] [place] [address] 60897- 8266 13 Jun, 2016 Paranoid schizophrenia F20.0 and Depression with anxiety F41.8 [place] [address] [place] [address] 28692- 1934 Jun, Paranoid schizophrenia F20.0 and Depression with anxiety F41.8 [place] [address] [place] [address] 41760- 6613 Jun, [place] [id number] [place] [address] 77999- 0444 Jun, [facility] [id number] [place] [address] 34807 -5958 Jun, Seasonal allergic rhinitis due to other allergic trigger J30.89 [facility] [id number] [place] [address] 39843 -4418 25 May, 2016 Sore throat J02.9 ; Other viral agents as the cause of diseases classified elsewhere B97.89 and Acute upper respiratory infection, unspecified J06.9 [place] [id number] [place] [address] 44142- 2436 08 May, 2016 Paranoid schizophrenia F20.0 and Depression with anxiety F41.8 [place] [id number] [place] [address] 18845- 4946 Apr, Other seasonal allergic rhinitis J30.[address] 95463- 9735 Apr, Paranoid schizophrenia F20.0 and Depression with anxiety F41.8 [facility] [place] [id number] [place] [address] 43958 -4567 Apr, Bronchitis J40 and Sore throat J02.9 [place] [id number] [place] [address] 15665- 6050 Apr, Type 2 diabetes mellitus without complication, without long- term current use of insulin E11.9 [facility] [address] [place] [id number] [place] [address] 13972 -5713 Apr, Bronchitis J40 [place] [id number] [place] [address] 36137- 3312 Apr, [place] [id number] [place] [address] 74316- 5112 Apr, [place] [id number] [place] [address] 83642- 9127 Mar, Type 2 diabetes mellitus without complication, [...] R60.9 and Other seasonal allergic rhinitis J30.2 [place] [id number] [place] [address] 81211- 6033 Mar, Paranoid schizophrenia F20.0 and Depression with anxiety F41.8 [place] [id number] [place] [address] 91944- 8147 Feb, [place] [address] 38133- 2415 Feb, [place] [id number] [place] [address] 51107- 9376 Feb, [place] [id number] [place] [address] 92273- 7214 Feb, [place] [id number] [place] [address] 37697- 3882 Feb, Type 2 diabetes mellitus without complication, without long- term current use of insulin E11.9 ; ARIAS on CPAP G47.33 and Preoperative evaluation to rule out surgical contraindication Z01.818 [place] [id number] [place] [address] 40550- 1019 Feb, Paranoid schizophrenia F20.0 and Depression with anxiety F41.8 [place] [id number] [place] [address] 43727- 9123 Jan, [place] [id number] [place] [address] 60148- 6308 Jan, Paranoid schizophrenia F20.0 and Depression with anxiety F41.8 [place] [id number] [place] [address] 17669- 9938 Jan, [place] [id number] [place] [address] 33567- 5535 Jan, Muscle strain T14.8 [place] [id number] [place] [address] 40439- 1915 Jan, Paranoid schizophrenia F20.0 [facility] [address], [place] [address]- 5684 Jan, [facility] [id number] [place] [address] 07325- 4789 Jan, Paranoid schizophrenia F20.0 and Depression with anxiety F41.8 [facility] [id number] [place] [address] 35777- 6150 Jan, [facility] [id number] [place] [address] 44317- 1888 Jan, [facility] [id number] [place] [address] 85121- 7239 Dec, [facility] [id number] [place] [address] 24168- 0160 Dec, Paranoid schizophrenia F20.0 [facility] [id number] [place] [address] [phone] 16 Dec, 2015 Paranoid schizophrenia F20.0 and Depression with anxiety F41.8 [facility] [id number] [place] [address] [phone] Nov, [facility] [id number] [place] [address] [phone]- [phone] Nov, Paranoid schizophrenia F20.0 [facility] [id number] [place] [address] [phone]- [phone] Nov, Paranoid schizophrenia F20.0 and Depression with anxiety F41.8 [facility] [id number] [place] [address] [phone]- [phone] Nov, Type 2 diabetes mellitus without complication, without long- term current use of insulin E11.9 ; Paranoid schizophrenia F20.0 ; Chronic obstructive pulmonary disease, unspecified COPD type J44.9 ; Morbid obesity due to excess calories E66.01 and Parkinsonian tremor G20 [facility] [id number] [place] [address] [phone] Nov, [place] [id number] [place] [address] 26880- [phone] Oct, Paranoid schizophrenia F20.0 [place] [id number] [place] [address] [phone]- [phone] Oct, Paranoid schizophrenia F20.0 [place] [id number] [place] [address] [phone]- [phone] Oct, Paranoid schizophrenia F20.0 and Depression with anxiety F41.8 [place] [id number] [place] [address] [phone]- [phone] Oct, [place] [id number] [place] [address] [phone]- [phone] Oct, Paranoid schizophrenia F20.0 and Depression with anxiety F41.8 [place] [id number] [place] [address] 91541- 8142 Oct, Nasal sore J34.89 [place] [id number] [place] [address] 88923- 5378 Oct, Type 2 diabetes mellitus without complication, without long- term current use of insulin E11.9 ; Depression with anxiety F41.8 ; Hypothyroidism, unspecified type E03.9 and History of lupus Z87.39 [place] [id number] [place] [address] 95570- 8949 Oct, [place] [id number] [place] [address] 32773- 7446 Oct, Type 2 diabetes mellitus without complication, [...] edema R60.9 and History of lupus Z87.39 [facility] [id number] [place] [address] 08926- 1048 Feb, [facility] [address] [id number] [address] 0437 Jan, [facility] [id number] [place] [address] 15937- 3980 Jan, [facility] [id number] [place] [address] 00242- 8519 Jan, [facility] [id number] [place] [address] 28795- 9131 Dec, [facility] [id number] [place] [address] 94745- 6305 Nov, [facility] [id number] [place] [address] 18241- 1539 Nov, [facility] [id number] [place] [address] 80021- 7230 Oct, [facility] [id number] [place] [address] 30201- 0774 Oct, [facility] [id number], [place] [address]- 7596 Oct, [facility] [id number] [place] [address] 09002- 3708 Sep, Allergic rhinitis 477.9 [facility] [id number] [place] [address] 95604- 4560 Sep, Rhinitis, allergic 477.9 [facility] [id number] [place] [address] 58484- 9803 Sep, Rhinitis, allergic 477.9 [facility] [address] [id number] [address] 8904 Sep, [facility] [place] [facility] [address] [id number] [place] [address]- 0896 August, [facility] [place] [facility] [address] [id number] [place] [address]- 3166 August, [facility] [place] [facility] [address] [id number] [place] [address]- 8846 August, [facility] [place] [facility] [address] [id number] [place] [address]- 0678 Jul, [facility] [place] [facility] [address] [id number] [place] [address]- 2659 Jul, [facility] [place] [facility] [address] [id number] [place] [address]- 8750 Jul, [facility] [place] [facility] [address] [id number] [place] [address]- 3692 Jun, [facility] [place] [facility] [address] [id number] [place] [address]- 0733 Jun, [facility] [place] [facility] [address] [id number] [place] [address]- 9130 Jun, [facility] [place] [facility] [address] [id number] [place] [address]- 4315 Jun, [facility] [place] [facility] [address] [id number] [place] [address]- 4672 Jun, [facility] [place] [facility] [address] [id number] [place] [address]- 8674 Jun, [facility] [place] [facility] [address] [id number] [place] [address]- 2885 Jun, [facility] [place] [facility] [address] [id number] [place] [address]- 1914 Jun, [facility] [place] [facility] [address] [id number] [place] [address]- 7706 May, [facility] [place] [facility] [address] [id number] [place] [address]- 4815 May, [facility] [place] [facility] [address] [id number] [place] [address]- 5898 May, [facility] [place] [facility] [address] [id number] [place] [address]- 7293 May, [facility] [place] [facility] [address] [facility] [id number] [place] [address]- 2642 Apr, [facility] [place] [facility] [address] [id number] [place] 6932 Mar, [facility] [place] [facility] [address] [id number] [place] [address]- 1144 Mar, [facility] [place] [facility] [address] [facility] [id number] [place] [address]- 9835 Mar, [facility] [place] [facility] [address] [facility] [id number] [place] [address]- 1602 Mar, [facility] [place] [facility] [address] [id number] [place] [address]- 7052 Mar, [facility] [place] [facility] [address] [id number] [place] [address]- 3372 Mar, [facility] [place] [facility] [address] [facility] [id number] [place] [address]- 3023 Mar, [facility] [place] [facility] [address] [facility] [id number] [place] [address]- 2479 Mar, [facility] [place] [facility] [address] [id number] [place] [address]- 6242 Mar, [facility] [place] [facility] [address] [id number] [place] [address]- 8668 Feb, [facility] [place] [facility] [address] [facility] [id number] [place] [address]- 0005 Feb, [facility] [place] [facility] [address] [facility] [id number] [place] [address]- 4903 Feb, [facility] [place] [facility] [address] [id number] [place] [address]- 2110 17 Feb, 2014 [facility] [place] [facility] [address] [id number] [place] [address]- 1656 14 Feb, 2014 [facility] [place] [facility] [address] [id number] [place] [address]- 0668 14 Feb, 2014 [facility] [place] [facility] [address] [id number] [place] [address]- 0880 12 Feb, 2014 [facility] [place] [facility] [address] [id number] [place] [address]- 3018 12 Feb, 2014 [facility] [place] [facility] [address] [id number] [place] [address]- 6292 23 Jan, 2014 [facility] [place] [facility] [address] [id number] [place] [address]- 9646 23 Jan, 2014 [facility] [place] [facility] [address] [id number] [place] [address]- 1851 16 Jan, 2014 [facility] [place] [facility] [address] [id number] [place] [address]- 8314 16 Jan, 2014 [facility] [place] [facility] [address] [id number] [place] [address]- 9395 15 Jan, 2014 [facility] [place] [facility] [address] [id number] [place] [address]- 6417 15 Jan, 2014 [facility] [place] [facility] [address] [id number] [place] [address]- 9769 14 Jan, 2014 [facility] [place] [facility] [address] [id number] [place] [address]- 5908 14 Jan, 2014 [facility] [place] [facility] [address] [id number] [place] [address]- 3271 14 Jan, 2014 [facility] [place] [facility] [address] [id number] [place] [address]- 8260 14 Jan, 2014 [facility] [place] [facility] [address] [id number] [place] [address]- 0186 Dec, [facility] [place] [facility] [address] [id number] [place] [address]- 9524 Dec, [facility] [place] [facility] [address] [id number] [place] [address]- 9669 Dec, [facility] [place] [facility] [address] [id number] [place] [address]- 9845 Dec, [facility] [place] [facility] [address] [id number] [place] [address]- 5730 Nov, [facility] [place] [facility] [address] [id number] [place] [address]- 7614 Nov, [facility] [place] [facility] [address] [id number] [place] [address]- 7275 Nov, [facility] [place] [facility] [address] [id number] [place] [address]- 6451 Nov, [facility] [place] [facility] [address] [id number] [place] [address]- 3704 Nov, [facility] [place] [facility] [address] [id number] [place] [address]- 3887 Oct, [facility] [place] [facility] [address] [id number] [place] [address]- 7734 Oct, [facility] [place] [facility] [address] [id number] [place] [address]- 7598 Oct, [facility] [place] [facility] [address] [id number] [place] [address]- 3203 Oct, [facility] [place] [facility] [address] [id number] [place] [address]- 9213 Sep, [facility] [place] [facility] [address] [id number] [place] [address]- 8893 Sep, [facility] [place] [facility] [address] [id number] [place] [address]- 6063 Sep, [facility] [place] [facility] [address] [id number] [place] [address]- 2219 Sep, [facility] [place] [facility] [address] [id number] [place] [address]- 7983 Sep, [facility] [place] [facility] [address] [id number] [place] [address]- 3115 Sep, [facility] [place] [facility] [address] [id number] [place] [address]- 9538 Sep, [facility] [place] [facility] [address] [id number] [place] [address]- 7194 Sep, [facility] [place] [facility] [address] [id number] [place] [address]- 9030 August, [facility] [place] [facility] [address] [id number] [place] [address]- 8316 August, [facility] [place] [facility] [address] [id number] [place] [address]- 6456 August, [facility] [place] [facility] [address] [id number] [place] [address]- 9408 August, [facility] [place] [facility] [address] [id number] [place] [address]- 5892 August, [facility] [place] [facility] [address] [id number] [place] [address]- 4493 August, [facility] [place] [facility] [address] [id number] [place] [address]- 8753 August, [facility] [place] [facility] [address] [id number] [place] [address]- 5388 Jul, [facility] [place] [facility] [address] [id number] [place] [address]- 4269 Jul, [facility] [place] [facility] [address] [id number] [place] [address]- 9761 Jul, [facility] [place] [facility] [address] [id number] [place] [address]- 9529 Jul, [facility] [place] [facility] [address] [id number] [place] [address]- 8697 Jul, [facility] [place] [facility] [address] [id number] [place] [address]- 2616 Jul, [facility] [place] [facility] [address] [id number] [place] 8696 Jul, [facility] [place] [facility] [address] [id number] [place] [address]- 3292 Jul, [facility] [place] [facility] [address] [id number] [place] [address]- 1222 Jul, [facility] [place] [facility] [address] [id number] [place] [address]- 8934 Jul, [facility] [place] [facility] [address] [id number] [place] [address]- 6427 Jul, [facility] [place] [facility] [address] [id number] [place] [address]- 5573 Jul, [facility] [place] [facility] [address] [id number] [place] [address]- 0061 Jun, [facility] [place] [facility] [address] [id number] [place] [address]- 6283 Jun, [facility] [place] [facility] [address] [id number] [place] [address]- 8224 Jun, [facility] [place] [facility] [address] [id number] [place] [address]- 1936 Jun, [facility] [place] [facility] [address] [id number] [place] [address]- 1595 Jun, [facility] [place] [facility] [address] [id number] [place] [address]- 1227 May, [facility] [place] [facility] [address] [id number] [place] [address]- 7473 May, [facility] [place] [facility] [address] [id number] [place] [address]- 2885 May, 2013 [facility] [address] [facility] [id number] [place] [address]- 8256 May, [facility] [place] [facility] [address] [facility] [id number] [place] 6836 May, [facility] [place] [facility] [address] [facility] [id number] [place] [address]- 5879 May, [facility] [place] [facility] [address] [facility] [id number] [place] [address]- 7983 May, [facility] [place] [facility] [address] [facility] [id number] [place] [address]- 6633 May, [facility] [place] [facility] [address] [facility] [id number] [place] [address]- 7595 Mar, [facility] [address] [facility] [id number], [place] [address]- 3646 Mar, [facility] [place] [facility] [address] [facility] [id number], [place] [address]- 0925 Mar, [facility] [place] [facility] [address] [facility] [id number] [place] [address]- 2172 Mar, [facility] [place] [facility] [address] [facility] [id number] [place] [address]- 5520 Mar, [facility] [place] [facility] [address] [facility] [id number], [place] [address]- 0988 Mar, [facility] [place] [facility] [address] [facility] [id number], [place] [address]- 6880 Feb, [facility] [place] [facility] [address] [facility] [id number], [place] [address]- 7716 Feb, [facility] [place] [facility] [address] [facility] [id number], [place] [address]- 6660 Jan, [facility] [place] [facility] [address] [facility] [id number], [place] [address]- 0920 Jan, [facility] [place] [facility] [address] [id number] [place] [address]- 7843 Jan, [facility] [place] [facility] [address] [id number] [place] [address]- 9854 Jan, [facility] [place] [facility] [address] [id number] [place] [address]- 9504 Jan, [facility] [place] [facility] [address] [id number] [place] [address]- 7017 Jan, [facility] [place] [facility] [address] [id number] [place] [address]- 0666 Jan, [facility] [place] [facility] [address] [id number] [place] [address]- 2278 Jan, [facility] [place] [facility] [address] [id number] [place] [address]- 1141 Jan, [facility] [place] [facility] [address] [id number] [place] [address]- 6870 Jan, [facility] [place] [facility] [address] [id number] [place] [address]- 6630 Dec, [facility] [place] [facility] [address] [id number] [place] [address]- 9490 Nov, [facility] [place] [facility] [address] [id number] [place] [address]- 1483 Nov, [facility] [place] [facility] [address] [id number] [place] [address]- 0202 Nov, [facility] [place] [facility] [address] [id number] [place] [address]- 2354 Oct, [facility] [place] [facility] [address] [id number] [place] [address]- 2544 Oct, [facility] [place] [facility] [address] [id number] [place] [address]- 2546 August, [facility] [place] [facility] [address] [id number] [place] [address]- 3532 Apr, [facility] [address] [id number], [place] [address]- 2159 Apr, [facility] [id number], [place] [address]- 8784 Feb, [facility] [address] [id number], [place] [address]- 9807 Feb, [facility] [id number], [place] [address]- 9578 Dec, [facility] [id number], [place] [address]- 5111 Dec, [facility] [id number], [place] [address]- 3637 Oct, [facility] [id number], [place] [address]- 2563 Oct, [facility] [id number], [place] [address]- 5674 Oct, [facility] [address] [id number] [address]- 0643 Jul, IMMUNIZATIONS Vaccine Route Administration Date Status INVEGA (PT'S OWN) IM Intramuscular November 02, 2017 Administered SOCIAL HISTORY Never Assessed REASON FOR VISIT Injection WB-MA PLAN OF CARE Activity Details Follow Up 4 Weeks Reason: VITAL SIGNS MEDICATIONS Unknown Medications RESULTS No Results PROCEDURES Procedure Date Ordered Result Body Site INVEGA (PT'S OWN) November 02, 2017 THER/PROPH/DIAG INJ, SC/IM November 02, 2017 INSTRUCTIONS MEDICATIONS ADMINISTERED No [...] for psychosis/mental illness , last one in [place] at [facility] 4 years ago
--- OUTSIDE RECORDS SUMMARY | 2018-09-02 13:37 | XMS REPORT ---
Author Author EDWINUMESH CASIANO Organization [facility] [address] Address [address] [place] [address] Care Team Providers Care Federal Aid Coordinator Name Role Phone UMESH PINEDA Unavailable PROBLEMS Type Condition ICD9-CM Code VKD48-GK Code Onset Dates Condition Status SNOMED Code Problem OAB (overactive bladder) N32.81 Active 095047472 Problem Depression with anxiety F41.8 Active 151185551 Problem Other seasonal allergic rhinitis J30.2 Active 078767544 Problem Chronic obstructive pulmonary disease, unspecified COPD type J44.9 Active 47892612 Problem Tobacco abuse Z72.0 Active 613594236 Problem Morbid obesity due to excess calories E66.01 Active 997981956 Problem Dyslipidemia E78.5 Active 104174847 Problem Hypothyroidism (acquired) E03.9 Active 120114563 Problem Essential hypertension I10 Active 61990224 Problem Diabetic polyneuropathy associated with type 2 diabetes mellitus E11.42 Active 119544425 Problem Type 2 diabetes mellitus with diabetic neuropathic arthropathy, 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 Active 455303011 Problem Type 2 diabetes mellitus without complication, without long-term current use of insulin E11.9 Active 910881187 Problem Paranoid schizophrenia F20.0 Active 49866112 Problem Chronic pain syndrome G89.4 Active 269916240 Problem Migraine without aura and without status migrainosus, not intractable G43.009 Active 139603156 Problem Gastroesophageal reflux disease, esophagitis presence not specified K21.9 Active 390594122 Problem Seasonal allergic rhinitis due to pollen J30.1 Active 40846994 Problem COPD exacerbation J44.1 Active 514863247 Problem Seasonal allergic rhinitis due to other allergic trigger J30.89 Active 317966368 Problem Schizoaffective disorder, depressive type F25.1 Active 02871892 Problem History of lupus Z87.39 Active 688415115 Problem Gastroesophageal reflux disease without esophagitis K21.9 Active 291365312 Problem Menopausal syndrome (hot flashes) N95.1 Active 878958214 Problem Other allergic rhinitis J30.89 Active 671628477 Problem Primary insomnia F51.01 Active 9186316 Problem DM neuro manif type II E11.49 Active 18810752 ALLERGIES No Information ENCOUNTERS Encounter Location Date Diagnosis [place] [id number] [place] [address] 37228- 8997 Jan, [place] [address] 44509- 9439 Dec, [place] [address] 46644- 7286 Dec, [place] [address] 93692- 7002 Nov, Schizoaffective disorder, depressive type F25.1 and BMI 45.0 -49.9, adult Z68.42 [place] [address] 88579- 8286 Nov, [place] [address] 32578- 4645 Nov, [place] [address] 75387- 5184 Nov, Schizoaffective disorder, depressive type F25.1 [place] [address] 87757- 8188 Nov, Well woman exam Z01.419 ; BMI 45.0-49.9, adult Z68.42 ; Screening breast examination Z12.31 and Dietary counseling and surveillance Z71.3 [place] [id number] [place] [address] 45870- 6493 Nov, Paranoid schizophrenia F20.0 [place] [address] 65745- 9522 09 Nov, 2017 Gastroesophageal reflux disease, esophagitis presence not specified K21.9 [place] [address] 60251- 0128 Oct, Paranoid schizophrenia F20.0 [facility] [address] [id number] [address] Oct Chronic pain syndrome G89.4 and Schizoaffective disorder, depressive type F25.1 [place] [address], [place] [address] 4014 Oct, Chronic pain syndrome G89.4 and Schizoaffective disorder, depressive type F25.1 [place] [address] [place] [address] 91843- 4937 Oct, Type 2 diabetes mellitus without complication, without long- term current use of insulin E11.9 [place] [id number] [place] [address] 46622- 5955 Oct, Essential hypertension I10 and DM neuro manif type II E11.49 [place] [id number] [place] [address] 78221- 4252 Oct, [place] [address] [place] [address] 86064- 7968 Oct, Schizoaffective disorder, depressive type F25.1 and BMI 45.0 -49.9, adult Z68.42 [place] [address], [place] [address] 4611 Oct, [place] [address] [place] [address] 26308- 0217 Oct, Paranoid schizophrenia F20.0 [place] [address] [place] [address] 94317- 6012 Oct, Type 2 diabetes mellitus with diabetic neuropathic arthropathy, 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 ; Essential hypertension I10 ; Hypothyroidism (acquired) E03.9 ; Chronic obstructive pulmonary disease, unspecified COPD type J44.9 and Diabetic polyneuropathy associated with type 2 diabetes mellitus E11.42 [place] [id number] [place] [address] 20710- 9336 Sep, Paranoid schizophrenia F20.0 [facility] [address] [place] [address] 4702 Sep, Paranoid schizophrenia F20.0 and BMI 45.0-49.9, adult Z68.42 [facility] [address], [place] [address] 6371 Sep, Schizoaffective disorder, depressive type F25.1 [facility] [id number] [place] [address] 95684- 1994 Sep, [facility] [id number] [place] [address] 54501- 9831 Sep, Paranoid schizophrenia F20.0 [facility] [id number] [place] [address] 45419- 9767 Sep, [facility] [id number] [place] [address] 34621- 5404 Sep, Hypothyroidism (acquired) E03.9 [facility] [id number] [address] 0117 Sep, [facility] [id number] [place] [address] 60444- 4887 August, Schizoaffective disorder, depressive type F25.1 [facility] [id number] [address] 7299 August, [facility] [id number] [address] 7219 August, [facility] [id number] [address] 0715 August, [facility] [id number] [place] [address] 56145- 1532 August, Paranoid schizophrenia F20.0 [facility] [address], [place] [address] 2070 August, History of lupus Z87.39 and Chronic pain syndrome G89.4 [place] [address] 85499- 6615 August, [facility] [address] 03646 -8323 August, Seasonal allergic rhinitis, unspecified trigger J30.2 and BMI 45.0-49.9, adult Z68.42 [place] [address] 54806- 0323 Jul, Schizoaffective disorder, depressive type F25.1 [place] [address] 08939- 4145 Jul, [place] [address] 25432- 8239 Jul, Hypothyroidism (acquired) E03.[address] 91045- 5338 Jul, Chronic obstructive pulmonary disease, unspecified COPD type J44.9 and Type 2 diabetes mellitus without complication, without long-term current use of insulin E11.9 [place] [address] 07387- 5726 Jul, Paranoid schizophrenia F20.0 [place] [address] 66880- 5564 Jun, Hypothyroidism (acquired) E03.9 and Seasonal allergic rhinitis due to pollen J30.1 [facility] [id number] [place] [address] 35128 -3950 Jun, Shortness of breath at rest R06.02 ; COPD exacerbation J44.1 and BMI 45.0-49.9, adult Z68.42 [place] [address] 04442- 1893 Jun, [place] [address] 23550- 6677 Jun, Paranoid schizophrenia F20.0 ; Depression with anxiety F41.8 and BMI 45.0-49.9, adult Z68.42 [facility] [id number] [place] [address] Jun, Schizoaffective disorder, depressive type F25.1 [facility] [id number] [place] [address] [id number] Jun, Dental caries K02.9 [facility] [id number] [place] [address] 87253- 0714 Jun, Paranoid schizophrenia F20.0 [facility] [id number] [place] [address] 84257- 1788 May, Migraine without aura and without status migrainosus, not intractable G43.009 ; DM neuro manif type II E11.49 and Type 2 diabetes mellitus without complication, without long-term current use of insulin E11.9 [facility] [id number] [place] [address] 36780- 3742 May, Migraine without aura and without status migrainosus, not intractable G43.009 [facility] [id number] [place] [address] 05517- 3374 May, Depression with anxiety F41.8 [facility] [id number] [place] [address] [id number] May, [facility] [id number] [place] [address] 17577- 1338 May, [facility] [id number] [place] [address] 61671- 4951 May, [facility] [address] 78166- 1426 May, Hypothyroidism (acquired) E03.9 [facility] [id number] [place] [address] 43099- 5613 May, Paranoid schizophrenia F20.0 [facility] [address] 43232- 9783 08 May, 2017 Type 2 diabetes mellitus [...] N32.81 and Controlled substance agreement signed Z79.899 [place] [address] 64595- 3090 May, Controlled substance agreement signed Z79.899 [place] [address] 37389- 6798 Apr, [facility] [address] [id number] Apr, Dental examination Z01.20 [place] [address] 59143- 9151 Apr, Paranoid schizophrenia F20.0 [place] [address] 17171- 1310 Apr, Hypertension, unspecified type I10 [place] [address] 23428- 7026 Apr, Paranoid schizophrenia F20.0 [place] [address] 28601- 6684 Apr, [place] [address] 12167- 1202 Apr, Tobacco abuse Z72.0 [place] [address] 89973- 1366 Apr, [facility] [id number] [place] [address] 40533- 3453 Mar, [facility] [id number] [place] [address] 44328- 8774 Mar, Paranoid schizophrenia F20.0 and BMI 45.0-49.9, adult Z68.42 [facility] [address] 45717- 4112 Mar, Schizoaffective disorder, depressive type F25.1 [facility] [id number] [place] [address] 99252- 4828 Mar, [facility] [id number] [place] [address] 45760- 7793 Mar, Hypothyroidism, unspecified type E03.9 [facility] [id number] [place] [address] 18121- 5535 Mar, Schizoaffective disorder, depressive type F25.1 [facility] [id number] [place] [address] 28014 -4587 Feb, Gastroenteritis K52.9 and BMI 45.0-49.9, adult Z68.42 [facility] [id number] [place] [address] 77634- 6783 Feb, [facility] [id number] [place] [address] 93851- 1061 Feb, [facility] [id number] [place] [address] 72231- 6246 Feb, [facility] [id number] [place] [address] 81100- 6574 Feb, [facility] [id number] [place] [address] 14694- 7647 Feb, Paranoid schizophrenia F20.0 [facility] [id number] [place] [address] 52695- 5012 Feb, Gastroesophageal reflux disease without esophagitis K21.9 ; Other seasonal allergic rhinitis J30.2 ; Other allergic rhinitis J30.89 ; Tobacco abuse Z72.0 and BMI 40.0-44.9, adult Z68.41 [place] [address] 94968- 0622 Feb, Onychomycosis B35.1 ; Callus of foot L84 and DM neuro manif type II E11.49 [place] [address] 08457- 6600 Jan, Chronic allergic rhinitis J30.9 [place] [address] 66362- 2723 Jan, [place] [address] 26680- 4709 Jan, Schizoaffective disorder, depressive type F25.[address] 30561- 9299 Jan, [facility] [address] [place] [address] 66609 -2472 Jan, Sore throat J02.9 and Seasonal allergic rhinitis due to other allergic trigger J30.89 [place] [address] 10297- 5658 Jan, [place] [address] 13789- 2071 Jan, [facility] [address] 91141 -4013 Jan, Chronic allergic rhinitis J30.9 [place] [address] 94264- 4077 Dec, Paranoid schizophrenia F20.0 ; Primary insomnia F51.01 and Schizoaffective disorder, depressive type F25.1 [place] [address] 70441- 0104 Dec, Chronic pain syndrome G89.4 ; Cervicalgia of occipito- atlanto-axial region M54.2 ; Menopausal syndrome (hot flashes) N95.1 and Encounter for immunization Z23 [place] [id number] [place] [address] 80751- 5287 Dec, [place] [address] 74248- 7352 Dec, [place] [address] 83768- 6083 Dec, Paranoid schizophrenia F20.0 [place] [address] 50284- 6589 Dec, Schizoaffective disorder, depressive type F25.1 [place] [address] 10253- 1725 Nov, Hypothyroidism, unspecified type E03.9 [facility] [address] 78245 -6567 Nov, Acute seasonal allergic rhinitis due to other allergen J30.89 [place] [address] 37641- 6729 Nov, [place] [id number] [place] [address] 97522- 5366 Nov, Hypothyroidism, unspecified type E03.9 and Other elevated white blood cell (WBC) count D72.828 [place] [id number] [place] [address] 67741- 1857 Nov, Schizoaffective disorder, depressive type F25.1 [place] [address] 51914- 3125 Nov, Paranoid schizophrenia F20.0 [place] [id number] [place] [address] 00325- 4421 Nov, Type 2 diabetes mellitus without complication, without long- term current use of insulin E11.9 ; Morbid obesity due to excess calories E66.01 and Chronic pain syndrome G89.4 [place] [address] [place] [address] 13473- 3329 Oct, Paranoid schizophrenia F20.0 [place] [id number] [place] [address] 15358- 9854 Oct, [place] [id number] [place] [address] 46443- 8179 Oct, Schizoaffective disorder, depressive type F25.1 [place] [id number] [place] [address] 35531- 6191 Oct, Hypothyroidism, unspecified type E03.9 and Other elevated white blood cell (WBC) count D72.828 [place] [id number] [place] [address] 92184- 0714 Oct, Morbid obesity due to excess calories E66.01 ; Chronic obstructive pulmonary disease, unspecified COPD type J44.9 ; History of lupus Z87.39 ; Hypothyroidism, unspecified type E03.9 ; Gastroesophageal reflux disease without esophagitis K21.9 ; Primary insomnia F51.01 and Chronic pain syndrome G89.4 [place] [id number] [place] [address] 48645- 5212 Sep, [place] [address], [place] [address]- 4734 Sep, [place] [id number] [place] [address] 78709- 1142 Sep, [place] [id number] [place] [address] 09421- 3219 Sep, Paranoid schizophrenia F20.0 [place] [id number] [place] [address] 06120- 0164 Sep, [place] [address], [place] [address]- 3242 Sep, Paranoid schizophrenia F20.0 [place] [address], [place] [address]- 8661 Sep, [place] [id number] [place] [address] 10270- 3613 August, Paranoid schizophrenia F20.0 [place] [address] [place] [address] 76492- 8147 Jul, [place] [id number] [place] [address] 06141- 6097 Jul, Type 2 diabetes mellitus without complication, without long- term current use of insulin E11.9 ; Morbid obesity due to excess calories E66.01 ; Depression with anxiety F41.8 ; Hypothyroidism, unspecified type E03.9 ; Seasonal allergic rhinitis due to other allergic trigger J30.89 ; Pain, dental K08.89 and Gastroesophageal reflux disease without esophagitis K21.9 [facility] [id number] [place] [address] [id number] 12 Jul, 2016 Dental examination Z01.20 [place] [id number] [place] [address] 21242- 4808 07 Jul, 2016 Paranoid schizophrenia F20.0 [place] [address] [place] [address] 16833- 9268 13 Jun, 2016 Paranoid schizophrenia F20.0 and Depression with anxiety F41.8 [place] [address] [place] [address] 45029- 6866 Jun, Paranoid schizophrenia F20.0 and Depression with anxiety F41.8 [place] [address] [place] [address] 95267- 7054 Jun, [place] [id number] [place] [address] 58840- 8167 Jun, [facility] [id number] [place] [address] 00560 -1751 Jun, Seasonal allergic rhinitis due to other allergic trigger J30.89 [facility] [id number] [place] [address] 95414 -5542 25 May, 2016 Sore throat J02.9 ; Other viral agents as the cause of diseases classified elsewhere B97.89 and Acute upper respiratory infection, unspecified J06.9 [place] [id number] [place] [address] 46139- 2037 08 May, 2016 Paranoid schizophrenia F20.0 and Depression with anxiety F41.8 [place] [id number] [place] [address] 38772- 2512 Apr, Other seasonal allergic rhinitis J30.[address] 83060- 3378 Apr, Paranoid schizophrenia F20.0 and Depression with anxiety F41.8 [facility] [place] [id number] [place] [address] 36420 -4596 Apr, Bronchitis J40 and Sore throat J02.9 [place] [id number] [place] [address] 31001- 4099 Apr, Type 2 diabetes mellitus without complication, without long- term current use of insulin E11.9 [facility] [address] [place] [id number] [place] [address] 58700 -4083 Apr, Bronchitis J40 [place] [id number] [place] [address] 31918- 4652 Apr, [place] [id number] [place] [address] 81079- 6930 Apr, [place] [id number] [place] [address] 54844- 2096 Mar, Type 2 diabetes mellitus without complication, [...] R60.9 and Other seasonal allergic rhinitis J30.2 [place] [id number] [place] [address] 47240- 0544 Mar, Paranoid schizophrenia F20.0 and Depression with anxiety F41.8 [place] [id number] [place] [address] 67947- 7682 Feb, [place] [address] 71482- 0824 Feb, [place] [id number] [place] [address] 86614- 1280 Feb, [place] [id number] [place] [address] 77180- 9219 Feb, [place] [id number] [place] [address] 16613- 7334 Feb, Type 2 diabetes mellitus without complication, without long- term current use of insulin E11.9 ; ARIAS on CPAP G47.33 and Preoperative evaluation to rule out surgical contraindication Z01.818 [place] [id number] [place] [address] 42133- 5858 Feb, Paranoid schizophrenia F20.0 and Depression with anxiety F41.8 [place] [id number] [place] [address] 55676- 1497 Jan, [place] [id number] [place] [address] 13272- 1519 Jan, Paranoid schizophrenia F20.0 and Depression with anxiety F41.8 [place] [id number] [place] [address] 02532- 4478 Jan, [place] [id number] [place] [address] 92837- 4469 Jan, Muscle strain T14.8 [place] [id number] [place] [address] 02824- 2623 Jan, Paranoid schizophrenia F20.0 [facility] [address], [place] [address]- 4750 Jan, [facility] [id number] [place] [address] 85438- 7700 Jan, Paranoid schizophrenia F20.0 and Depression with anxiety F41.8 [facility] [id number] [place] [address] 44550- 2759 Jan, [facility] [id number] [place] [address] 36864- 4718 Jan, [facility] [id number] [place] [address] 02654- 7279 Dec, [facility] [id number] [place] [address] 64266- 9014 Dec, Paranoid schizophrenia F20.0 [facility] [id number] [place] [address] 49371- 9490 16 Dec, 2015 Paranoid schizophrenia F20.0 and Depression with anxiety F41.8 [facility] [id number] [place] [address] 42275- 0522 Nov, [facility] [id number] [place] [address] 83503- 0010 Nov, Paranoid schizophrenia F20.0 [facility] [id number] [place] [address] 79488- 6148 Nov, Paranoid schizophrenia F20.0 and Depression with anxiety F41.8 [facility] [id number] [place] [address] 64308- 0527 Nov, Type 2 diabetes mellitus without complication, without long- term current use of insulin E11.9 ; Paranoid schizophrenia F20.0 ; Chronic obstructive pulmonary disease, unspecified COPD type J44.9 ; Morbid obesity due to excess calories E66.01 and Parkinsonian tremor G20 [facility] [id number] [place] [address] [id number] [id number] Nov, [place] [id number] [place] [address] [phone]- [phone] Oct, Paranoid schizophrenia F20.0 [place] [address] [place] [id number] [place] [address] [phone]- 5449 Oct, Paranoid schizophrenia F20.0 [place] [address] [place] [id number] [place] [address] [phone]- [phone] Oct, Paranoid schizophrenia F20.0 and Depression with anxiety F41.8 [place] [address] [place] [id number] [place] [address] [phone]- 4486 Oct, [place] [address] [place] [id number] [place] [address] 36957- [phone] Oct, Paranoid schizophrenia F20.0 and Depression with anxiety F41.8 [place] [address] [place] [id number] [place] [address] 71607- 3135 Oct, Nasal sore J34.89 [place] [address] [place] [id number] [place] [address] [phone]- 8689 Oct, Type 2 diabetes mellitus without complication, without long- term current use of insulin E11.9 ; Depression with anxiety F41.8 ; Hypothyroidism, unspecified type E03.9 and History of lupus Z87.39 [place] [id number] [place] [address] [phone]- 9298 Oct, [place] [id number] [place] [address] 23322- 5988 Oct, Type 2 diabetes mellitus without complication, [...] History of lupus Z87.39 [facility] [id number] [place] [address] 25991- 6989 Feb, [facility] [id number] [address] 7[address] Jan, [facility] [id number] [place] [address] 01653- 4396 Jan, [facility] [id number] [place] [address] 64781- 3992 Jan, [facility] [id number] [place] [address] 96475- 0673 Dec, [facility] [id number] [place] [address] 89384- 1313 Nov, [facility] [id number] [place] [address] 03548- 1746 Nov, [facility] [id number] [place] [address] 11286- 6157 Oct, [facility] [id number] [place] [address] 87047- 0942 Oct, [facility] [address] [address] 4417 Oct, [facility] [id number] [place] [address] 57036- 5702 Sep, Allergic rhinitis 477.9 [facility] [id number] [place] [address] 20703- 8444 Sep, Rhinitis, allergic 477.9 [facility] [id number] [place] [address] 73325- 3295 Sep, Rhinitis, allergic 477.9 [facility] [id number] [address] 5051 Sep, [facility] [place] [facility] [address] [id number] [place] [address]- 0679 August, [facility] [place] [facility] [address] [id number] [place] [address]- 8563 August, [facility] [place] [facility] [address] [id number] [place] [address]- 9716 August, [facility] [place] [facility] [address] [id number] [place] [address]- 9816 Jul, [facility] [place] [facility] [address] [id number] [place] [address]- 3637 Jul, [facility] [place] [facility] [address] [id number] [place] [address]- 1079 Jul, [facility] [place] [facility] [address] [id number] [place] [address]- 2720 Jun, [facility] [place] [facility] [address] [id number] [place] [address]- 4265 Jun, [facility] [place] [facility] [address] [id number] [place] [address]- 7989 Jun, [facility] [place] [facility] [address] [id number] [place] [address]- 9279 Jun, [facility] [place] [facility] [address] [id number] [place] [address]- 5656 Jun, [facility] [place] [facility] [address] [id number] [place] [address]- 7762 Jun, [facility] [place] [facility] [address] [id number] [place] [address]- 8118 Jun, [facility] [place] [facility] [address] [id number] [place] [address]- 6760 Jun, [facility] [place] [facility] [address] [id number] [place] [address]- 1696 May, [facility] [place] [facility] [address] [id number] [place] [address]- 7411 May, [facility] [place] [facility] [address] [id number] [place] [address]- 9972 May, [facility] [place] [facility] [address] [id number] [place] [address]- 8540 May, [facility] [place] [facility] [address] [facility] [id number] [place] [address]- 1917 Apr, [facility] [place] [facility] [address] [id number] [place] 1480 Mar, [facility] [place] [facility] [address] [id number] [place] [address]- 5315 Mar, [facility] [place] [facility] [address] [facility] [id number] [place] [address]- 6197 Mar, [facility] [place] [facility] [address] [facility] [id number] [place] [address]- 7119 Mar, [facility] [place] [facility] [address] [id number] [place] [address]- 7123 Mar, [facility] [place] [facility] [address] [id number] [place] [address]- 3394 Mar, [facility] [place] [facility] [address] [facility] [id number] [place] [address]- 7043 Mar, [facility] [place] [facility] [address] [facility] [id number] [place] [address]- 2223 Mar, [facility] [place] [facility] [address] [id number] [place] [address]- 7760 Mar, [facility] [place] [facility] [address] [id number] [place] [address]- 5903 Feb, [facility] [place] [facility] [address] [facility] [id number] [place] [address]- 0433 Feb, [facility] [place] [facility] [address] [facility] [id number] [place] [address]- 4909 Feb, [facility] [place] [facility] [address] [id number] [place] [address]- 1678 17 Feb, 2014 [facility] [place] [facility] [address] [id number] [place] [address]- 9421 14 Feb, 2014 [facility] [place] [facility] [address] [id number] [place] [address]- 5687 14 Feb, 2014 [facility] [place] [facility] [address] [id number] [place] [address]- 5444 12 Feb, 2014 [facility] [place] [facility] [address] [id number] [place] [address]- 9022 12 Feb, 2014 [facility] [place] [facility] [address] [id number] [place] [address]- 1321 23 Jan, 2014 [facility] [place] [facility] [address] [id number] [place] [address]- 0824 23 Jan, 2014 [facility] [place] [facility] [address] [id number] [place] [address]- 6284 16 Jan, 2014 [facility] [place] [facility] [address] [id number] [place] [address]- 4894 16 Jan, 2014 [facility] [place] [facility] [address] [id number] [place] [address]- 5146 15 Jan, 2014 [facility] [place] [facility] [address] [id number] [place] [address]- 2839 15 Jan, 2014 [facility] [place] [facility] [address] [id number] [place] [address]- 4939 14 Jan, 2014 [facility] [place] [facility] [address] [id number] [place] [address]- 7831 14 Jan, 2014 [facility] [place] [facility] [address] [id number] [place] [address]- 9740 14 Jan, 2014 [facility] [place] [facility] [address] [id number] [place] [address]- 4810 14 Jan, 2014 [facility] [place] [facility] [address] [id number] [place] [address]- 5350 Dec, [facility] [place] [facility] [address] [id number] [place] [address]- 9109 Dec, [facility] [place] [facility] [address] [id number] [place] [address]- 7517 Dec, [facility] [place] [facility] [address] [id number] [place] [address]- 9297 Dec, [facility] [place] [facility] [address] [id number] [place] [address]- 1100 Nov, [facility] [place] [facility] [address] [id number] [place] [address]- 3076 Nov, [facility] [place] [facility] [address] [id number] [place] [address]- 9824 Nov, [facility] [place] [facility] [address] [id number] [place] [address]- 5811 Nov, [facility] [place] [facility] [address] [id number] [place] [address]- 5208 Nov, [facility] [place] [facility] [address] [id number] [place] [address]- 8053 Oct, [facility] [place] [facility] [address] [id number] [place] [address]- 9666 Oct, [facility] [place] [facility] [address] [id number] [place] [address]- 9105 Oct, [facility] [place] [facility] [address] [id number] [place] [address]- 4109 Oct, [facility] [place] [facility] [address] [id number] [place] [address]- 0552 Sep, [facility] [place] [facility] [address] [id number] [place] [address]- 7893 Sep, [facility] [place] [facility] [address] [id number] [place] [address]- 5423 Sep, [facility] [place] [facility] [address] [id number] [place] [address]- 0136 Sep, [facility] [place] [facility] [address] [id number] [place] [address]- 1465 Sep, [facility] [place] [facility] [address] [id number] [place] [address]- 4638 Sep, [facility] [place] [facility] [address] [id number] [place] [address]- 7327 Sep, [facility] [place] [facility] [address] [id number] [place] [address]- 6321 Sep, [facility] [place] [facility] [address] [id number] [place] [address]- 8940 August, [facility] [place] [facility] [address] [id number] [place] [address]- 5157 August, [facility] [place] [facility] [address] [id number] [place] [address]- 5729 August, [facility] [place] [facility] [address] [id number] [place] [address]- 3975 August, [facility] [place] [facility] [address] [id number] [place] [address]- 7520 August, [facility] [place] [facility] [address] [id number] [place] [address]- 5953 August, [facility] [place] [facility] [address] [id number] [place] [address]- 1055 August, [facility] [place] [facility] [address] [id number] [place] [address]- 9830 Jul, [facility] [place] [facility] [address] [id number] [place] [address]- 3247 Jul, [facility] [place] [facility] [address] [id number] [place] [address]- 6550 Jul, [facility] [place] [facility] [address] [id number] [place] [address]- 0585 Jul, [facility] [place] [facility] [address] [id number] [place] [address]- 8537 Jul, [facility] [place] [facility] [address] [id number] [place] [address]- 9429 Jul, [facility] [place] [facility] [address] [id number] [place] 2576 Jul, [facility] [place] [facility] [address] [id number] [place] [address]- 4452 Jul, [facility] [place] [facility] [address] [id number] [place] [address]- 4853 Jul, [facility] [place] [facility] [address] [id number] [place] [address]- 3576 Jul, [facility] [place] [facility] [address] [id number] [place] [address]- 0990 Jul, [facility] [place] [facility] [address] [id number] [place] [address]- 8242 Jul, [facility] [place] [facility] [address] [id number] [place] [address]- 4682 Jun, [facility] [place] [facility] [address] [id number] [place] [address]- 9925 Jun, [facility] [place] [facility] [address] [id number] [place] [address]- 4343 Jun, [facility] [place] [facility] [address] [id number] [place] [address]- 3274 Jun, [facility] [place] [facility] [address] [id number] [place] [address]- 3233 Jun, [facility] [place] [facility] [address] [id number] [place] [address]- 2978 May, [facility] [place] [facility] [address] [id number] [place] [address]- 5045 May, [facility] [place] [facility] [address] [id number] [place] [address]- 0676 May, 2013 [facility] [address] [facility] [id number] [place] [address]- 0385 May, [facility] [place] [facility] [address] [facility] [id number] [place] 0146 May, [facility] [place] [facility] [address] [facility] [id number] [place] [address]- 3555 May, [facility] [place] [facility] [address] [facility] [id number] [place] [address]- 3713 May, [facility] [place] [facility] [address] [facility] [id number] [place] [address]- 6864 May, [facility] [place] [facility] [address] [facility] [id number] [place] [address]- 6669 Mar, [facility] [address] [facility] [id number], [place] [address]- 8942 Mar, [facility] [place] [facility] [address] [facility] [id number], [place] [address]- 1893 Mar, [facility] [place] [facility] [address] [facility] [id number] [place] [address]- 8196 Mar, [facility] [place] [facility] [address] [facility] [id number] [place] [address]- 6310 Mar, [facility] [place] [facility] [address] [facility] [id number], [place] [address]- 7080 Mar, [facility] [place] [facility] [address] [facility] [id number], [place] [address]- 8299 Feb, [facility] [place] [facility] [address] [facility] [id number], [place] [address]- 8903 Feb, [facility] [place] [facility] [address] [facility] [id number], [place] [address]- 3596 Jan, [facility] [place] [facility] [address] [facility] [id number], [place] [address]- 8767 Jan, [facility] [place] [facility] [address] [id number] [place] [address]- 1179 Jan, [facility] [place] [facility] [address] [id number] [place] [address]- 7061 Jan, [facility] [place] [facility] [address] [id number] [place] [address]- 6320 Jan, [facility] [place] [facility] [address] [id number] [place] [address]- 5116 Jan, [facility] [place] [facility] [address] [id number] [place] [address]- 9098 Jan, [facility] [place] [facility] [address] [id number] [place] [address]- 7069 Jan, [facility] [place] [facility] [address] [id number] [place] [address]- 9519 Jan, [facility] [place] [facility] [address] [id number] [place] [address]- 7294 Jan, [facility] [place] [facility] [address] [id number] [place] [address]- 9285 Dec, [facility] [place] [facility] [address] [id number] [place] [address]- 3045 Nov, [facility] [place] [facility] [address] [id number] [place] [address]- 9483 Nov, [facility] [place] [facility] [address] [id number] [place] [address]- 0675 Nov, [facility] [place] [facility] [address] [id number] [place] [address]- 1909 Oct, [facility] [place] [facility] [address] [id number] [place] [address]- 2540 Oct, [facility] [place] [facility] [address] [id number] [place] [address]- 2546 August, [facility] [place] [facility] [address] [id number] [place] [address]- 9402 Apr, [facility] [id number], [place] [address]- 9470 Apr, [facility] [address], [place] [address]- 8654 Feb, [facility] [address], [place] [address]- 6486 Feb, [facility] [address], [place] [address]- 0302 Dec, [facility] [address], [place] [address]- 3061 Dec, [facility] [id number] [place] [address] 764[address]- 5868 Oct, [facility] [address], [place] [address]- 6202 Oct, [facility] [address], [place] [address]- 0468 Oct, [facility] [address] [id number], [place] [address]- 1886 Jul, IMMUNIZATIONS No Known Immunizations SOCIAL HISTORY Never Assessed REASON FOR VISIT interaction PLAN OF CARE VITAL SIGNS MEDICATIONS Unknown [...] for psychosis/mental illness , last one in [place] at [facility] 4 years ago
--- OUTSIDE RECORDS SUMMARY | 2018-09-02 13:37 | XMS REPORT ---
Author Author EDWINUMESH CASIANO Organization [facility] [address] Address [address] [place] [address] Care Team Providers Care Spring Maker Name Role Phone UMESH PINDEA Unavailable PROBLEMS Type Condition ICD9-CM Code TVG03-YW Code Onset Dates Condition Status SNOMED Code Problem OAB (overactive bladder) N32.81 Active 106841714 Problem Depression with anxiety F41.8 Active 244312043 Problem Other seasonal allergic rhinitis J30.2 Active 235315238 Problem Chronic obstructive pulmonary disease, unspecified COPD type J44.9 Active 18085759 Problem Tobacco abuse Z72.0 Active 013867860 Problem Morbid obesity due to excess calories E66.01 Active 208092160 Problem Dyslipidemia E78.5 Active 220265800 Problem Hypothyroidism (acquired) E03.9 Active 468226983 Problem Essential hypertension I10 Active 66352605 Problem Diabetic polyneuropathy associated with type 2 diabetes mellitus E11.42 Active 450956786 Problem Type 2 diabetes mellitus with diabetic neuropathic arthropathy, 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 Active 265836415 Problem Type 2 diabetes mellitus without complication, without long-term current use of insulin E11.9 Active 036690409 Problem Paranoid schizophrenia F20.0 Active 45642953 Problem Chronic pain syndrome G89.4 Active 812064233 Problem Migraine without aura and without status migrainosus, not intractable G43.009 Active 600276652 Problem Gastroesophageal reflux disease, esophagitis presence not specified K21.9 Active 426162984 Problem Seasonal allergic rhinitis due to pollen J30.1 Active 76101454 Problem COPD exacerbation J44.1 Active 999809941 Problem Seasonal allergic rhinitis due to other allergic trigger J30.89 Active 620469984 Problem Schizoaffective disorder, depressive type F25.1 Active 09972379 Problem History of lupus Z87.39 Active 997507901 Problem Gastroesophageal reflux disease without esophagitis K21.9 Active 566166426 Problem Menopausal syndrome (hot flashes) N95.1 Active 220019815 Problem Other allergic rhinitis J30.89 Active 288456375 Problem Primary insomnia F51.01 Active 2519632 Problem DM neuro manif type II E11.49 Active 98074908 ALLERGIES No Information ENCOUNTERS Encounter Location Date Diagnosis [place] [id number] [place] [address] 86169- 6967 Jan, [place] [address] 29623- 9636 Dec, [place] [address] 68097- 9060 Dec, [place] [address] 96461- 5752 Nov, Schizoaffective disorder, depressive type F25.1 and BMI 45.0 -49.9, adult Z68.42 [place] [address] 77544- 7363 Nov, [place] [address] 87557- 8545 Nov, [place] [address] 48242- 3431 Nov, Schizoaffective disorder, depressive type F25.1 [place] [address] 48668- 0040 Nov, Well woman exam Z01.419 ; BMI 45.0-49.9, adult Z68.42 ; Screening breast examination Z12.31 and Dietary counseling and surveillance Z71.3 [place] [id number] [place] [address] 64798- 6375 Nov, Paranoid schizophrenia F20.0 [place] [address] 47772- 5295 09 Nov, 2017 Gastroesophageal reflux disease, esophagitis presence not specified K21.9 [place] [address] 39893- 6677 Oct, Paranoid schizophrenia F20.0 [facility] [id number] [address] Oct Chronic pain syndrome G89.4 and Schizoaffective disorder, depressive type F25.1 [place] [address], [place] [address] 0073 Oct, Chronic pain syndrome G89.4 and Schizoaffective disorder, depressive type F25.1 [place] [address] [place] [address] 11438- 5704 Oct, Type 2 diabetes mellitus without complication, without long- term current use of insulin E11.9 [place] [address] [id number] [place] [address] 80583- 7976 Oct, Essential hypertension I10 and DM neuro manif type II E11.49 [place] [address] [id number] [place] [address] 17490- 0418 Oct, [place] [address] [place] [address] 07827- 8768 Oct, Schizoaffective disorder, depressive type F25.1 and BMI 45.0 -49.9, adult Z68.42 [place] [address], [place] [address] 0733 Oct, [place] [address] [place] [address] 74486- 9929 Oct, Paranoid schizophrenia F20.0 [place] [address] [place] [address] 80611- 8167 Oct, Type 2 diabetes mellitus with diabetic neuropathic arthropathy, 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 ; Essential hypertension I10 ; Hypothyroidism (acquired) E03.9 ; Chronic obstructive pulmonary disease, unspecified COPD type J44.9 and Diabetic polyneuropathy associated with type 2 diabetes mellitus E11.42 [place] [address] [place] [address] 86700- 7630 Sep, Paranoid schizophrenia F20.0 [facility] [address], [place] [address] 4600 Sep, Paranoid schizophrenia F20.0 and BMI 45.0-49.9, adult Z68.42 [facility] [address], [place] [address]- 1109 Sep, Schizoaffective disorder, depressive type F25.1 [facility] [id number] [place] [address] 85529- 1098 Sep, [facility] [id number] [place] [address] 99581- 5282 Sep, Paranoid schizophrenia F20.0 [facility] [id number] [place] [address] 82808- 0052 Sep, [facility] [id number] [place] [address] 94565- 3792 Sep, Hypothyroidism (acquired) E03.9 [facility] [id number] [address]- 4187 Sep, [facility] [id number] [place] [address] 98410- 3400 August, Schizoaffective disorder, depressive type F25.1 [facility] [address] [address] 3802 August, [facility] [address] [address]- 3239 August, [facility] [address] [address]- 7165 August, [facility] [id number] [place] [address] 78325- 5905 August, Paranoid schizophrenia F20.0 [facility] [address], [place] [address]- 0490 August, History of lupus Z87.39 and Chronic pain syndrome G89.4 [place] [address] 93050- 5738 August, [facility] [address] 47185 -3043 August, Seasonal allergic rhinitis, unspecified trigger J30.2 and BMI 45.0-49.9, adult Z68.42 [place] [address] 61312- 8867 Jul, Schizoaffective disorder, depressive type F25.1 [place] [address] 02312- 1661 Jul, [place] [address] 50149- 0367 Jul, Hypothyroidism (acquired) E03.[address] 96067- 8749 Jul, Chronic obstructive pulmonary disease, unspecified COPD type J44.9 and Type 2 diabetes mellitus without complication, without long-term current use of insulin E11.9 [place] [address] 40054- 7479 Jul, Paranoid schizophrenia F20.0 [place] [address] 90965- 4770 Jun, Hypothyroidism (acquired) E03.9 and Seasonal allergic rhinitis due to pollen J30.1 [facility] [id number] [place] [address] 97693 -0681 Jun, Shortness of breath at rest R06.02 ; COPD exacerbation J44.1 and BMI 45.0-49.9, adult Z68.42 [place] [address] 63616- 4883 Jun, [place] [address] 83090- 1037 Jun, Paranoid schizophrenia F20.0 ; Depression with anxiety F41.8 and BMI 45.0-49.9, adult Z68.42 [facility] [id number] [place] [address] 3903 Jun, Schizoaffective disorder, depressive type F25.1 [facility] [id number] [place] [address] [id number] Jun, Dental caries K02.9 [facility] [id number] [place] [address] 76173- 1717 Jun, Paranoid schizophrenia F20.0 [facility] [id number] [place] [address] 56883- 1882 May, Migraine without aura and without status migrainosus, not intractable G43.009 ; DM neuro manif type II E11.49 and Type 2 diabetes mellitus without complication, without long-term current use of insulin E11.9 [facility] [id number] [place] [address] 64052- 7608 May, Migraine without aura and without status migrainosus, not intractable G43.009 [facility] [id number] [place] [address] 01303- 1688 May, Depression with anxiety F41.8 [facility] [id number] [place] [address] [id number] May, [facility] [id number] [place] [address] 30748- 3225 May, [facility] [id number] [place] [address] 24023- 3361 May, [facility] [address] 32745- 7635 May, Hypothyroidism (acquired) E03.9 [facility] [id number] [place] [address] 92010- 9257 May, Paranoid schizophrenia F20.0 [facility] [address] 78040- 2405 08 May, 2017 Type 2 diabetes mellitus [...] N32.81 and Controlled substance agreement signed Z79.899 [place] [address] 31670- 8424 May, Controlled substance agreement signed Z79.899 [place] [address] 77837- 2395 Apr, [facility] [address] [id number] Apr, Dental examination Z01.20 [place] [address] 91783- 7428 Apr, Paranoid schizophrenia F20.0 [place] [address] 52465- 7922 Apr, Hypertension, unspecified type I10 [place] [address] 67905- 6431 Apr, Paranoid schizophrenia F20.0 [place] [address] 57226- 2715 Apr, [place] [address] 84730- 7934 Apr, Tobacco abuse Z72.0 [place] [address] 66846- 7709 Apr, [facility] [id number] [place] [address] 42055- 1213 Mar, [facility] [id number] [place] [address] 59100- 2398 Mar, Paranoid schizophrenia F20.0 and BMI 45.0-49.9, adult Z68.42 [facility] [address] 71571- 7683 Mar, Schizoaffective disorder, depressive type F25.1 [facility] [address] [id number] [place] [address] 06216- 6647 Mar, [facility] [address] [id number] [place] [address] 69538- 8207 Mar, Hypothyroidism, unspecified type E03.9 [facility] [id number] [place] [address] 80506- 7520 Mar, Schizoaffective disorder, depressive type F25.1 [facility] [id number] [place] [address] 22122 -1100 Feb, Gastroenteritis K52.9 and BMI 45.0-49.9, adult Z68.42 [facility] [id number] [place] [address] 56950- 8913 Feb, [facility] [id number] [place] [address] 62359- 4615 Feb, [facility] [id number] [place] [address] 67491- 0481 Feb, [facility] [id number] [place] [address] 99784- 9329 Feb, [facility] [id number] [place] [address] 25714- 1457 Feb, Paranoid schizophrenia F20.0 [facility] [id number] [place] [address] 29464- 6709 Feb, Gastroesophageal reflux disease without esophagitis K21.9 ; Other seasonal allergic rhinitis J30.2 ; Other allergic rhinitis J30.89 ; Tobacco abuse Z72.0 and BMI 40.0-44.9, adult Z68.41 [place] [address] 29981- 6859 Feb, Onychomycosis B35.1 ; Callus of foot L84 and DM neuro manif type II E11.49 [place] [address] 95234- 3395 Jan, Chronic allergic rhinitis J30.9 [place] [address] 98107- 7152 Jan, [place] [address] 53707- 0853 Jan, Schizoaffective disorder, depressive type F25.[address] 59891- 1082 Jan, [facility] [address] [place] [address] 14657 -8574 Jan, Sore throat J02.9 and Seasonal allergic rhinitis due to other allergic trigger J30.89 [place] [address] 29457- 8975 Jan, [place] [address] 92512- 6181 Jan, [facility] [address] 28292 -1423 Jan, Chronic allergic rhinitis J30.9 [place] [address] 75756- 3349 Dec, Paranoid schizophrenia F20.0 ; Primary insomnia F51.01 and Schizoaffective disorder, depressive type F25.1 [place] [address] 38035- 1760 Dec, Chronic pain syndrome G89.4 ; Cervicalgia of occipito- atlanto-axial region M54.2 ; Menopausal syndrome (hot flashes) N95.1 and Encounter for immunization Z23 [place] [id number] [place] [address] 21068- 1068 Dec, [place] [address] 89289- 0392 Dec, [place] [address] 08094- 0857 Dec, Paranoid schizophrenia F20.0 [place] [address] 79931- 5614 Dec, Schizoaffective disorder, depressive type F25.1 [place] [address] 63479- 3300 Nov, Hypothyroidism, unspecified type E03.9 [facility] [address] 41046 -9596 Nov, Acute seasonal allergic rhinitis due to other allergen J30.89 [place] [address] 85571- 6900 Nov, [place] [id number] [place] [address] 41989- 5618 Nov, Hypothyroidism, unspecified type E03.9 and Other elevated white blood cell (WBC) count D72.828 [place] [id number] [place] [address] 31748- 5593 Nov, Schizoaffective disorder, depressive type F25.1 [place] [address] 52758- 8808 Nov, Paranoid schizophrenia F20.0 [place] [id number] [place] [address] 46757- 3102 Nov, Type 2 diabetes mellitus without complication, without long- term current use of insulin E11.9 ; Morbid obesity due to excess calories E66.01 and Chronic pain syndrome G89.4 [place] [address] [place] [address] 47860- 7389 Oct, Paranoid schizophrenia F20.0 [place] [id number] [place] [address] 80674- 0397 Oct, [place] [id number] [place] [address] 86756- 9754 Oct, Schizoaffective disorder, depressive type F25.1 [place] [id number] [place] [address] 19491- 3252 Oct, Hypothyroidism, unspecified type E03.9 and Other elevated white blood cell (WBC) count D72.828 [place] [id number] [place] [address] 32807- 4343 Oct, Morbid obesity due to excess calories E66.01 ; Chronic obstructive pulmonary disease, unspecified COPD type J44.9 ; History of lupus Z87.39 ; Hypothyroidism, unspecified type E03.9 ; Gastroesophageal reflux disease without esophagitis K21.9 ; Primary insomnia F51.01 and Chronic pain syndrome G89.4 [place] [address] [place] [address] 94292- 0408 Sep, [place] [address], [place] [address]- 0707 Sep, [place] [id number] [place] [address] 17087- 4321 Sep, [place] [id number] [place] [address] 29862- 7968 Sep, Paranoid schizophrenia F20.0 [place] [id number] [place] [address] 57470- 2699 Sep, [place] [address], [place] [address]- 5393 Sep, Paranoid schizophrenia F20.0 [place] [address], [place] [address]- 9784 Sep, [place] [id number] [place] [address] 66539- 0207 August, Paranoid schizophrenia F20.0 [place] [address] [place] [address] 02919- 7213 Jul, [place] [id number] [place] [address] 93170- 0148 Jul, Type 2 diabetes mellitus without complication, without long- term current use of insulin E11.9 ; Morbid obesity due to excess calories E66.01 ; Depression with anxiety F41.8 ; Hypothyroidism, unspecified type E03.9 ; Seasonal allergic rhinitis due to other allergic trigger J30.89 ; Pain, dental K08.89 and Gastroesophageal reflux disease without esophagitis K21.9 [facility] [address] [place] [address] [id number] Jul, 2016 Dental examination Z01.20 [place] [id number] [place] [address] 19931- 7165 07 Jul, 2016 Paranoid schizophrenia F20.0 [place] [address] [place] [address] 80221- 2657 13 Jun, 2016 Paranoid schizophrenia F20.0 and Depression with anxiety F41.8 [place] [address] [place] [address] 55051- 0494 Jun, Paranoid schizophrenia F20.0 and Depression with anxiety F41.8 [place] [address] [place] [address] 60294- 1428 Jun, [place] [id number] [place] [address] 11676- 0404 Jun, [facility] [address] [place] [address] 25280 -7775 Jun, Seasonal allergic rhinitis due to other allergic trigger J30.89 [facility] [id number] [place] [address] 81176 -0699 25 May, 2016 Sore throat J02.9 ; Other viral agents as the cause of diseases classified elsewhere B97.89 and Acute upper respiratory infection, unspecified J06.9 [place] [id number] [place] [address] 05710- 9667 08 May, 2016 Paranoid schizophrenia F20.0 and Depression with anxiety F41.8 [place] [id number] [place] [address] 29095- 1605 Apr, Other seasonal allergic rhinitis J30.[address] 59097- 0754 Apr, Paranoid schizophrenia F20.0 and Depression with anxiety F41.8 [facility] [place] [id number] [place] [address] 69794 -7198 Apr, Bronchitis J40 and Sore throat J02.9 [place] [id number] [place] [address] 39544- 9415 Apr, Type 2 diabetes mellitus without complication, without long- term current use of insulin E11.9 [facility] [id number] [place] [address] 08010 -3712 Apr, Bronchitis J40 [place] [id number] [place] [address] 05848- 4029 Apr, [place] [id number] [place] [address] 37342- 3602 Apr, [place] [id number] [place] [address] 40598- 2576 Mar, Type 2 diabetes mellitus without complication, [...] R60.9 and Other seasonal allergic rhinitis J30.2 [place] [id number] [place] [address] 74560- 9661 Mar, Paranoid schizophrenia F20.0 and Depression with anxiety F41.8 [place] [id number] [place] [address] 90059- 2757 Feb, [place] [address] 87119- 9579 Feb, [place] [id number] [place] [address] 12333- 8603 Feb, [place] [id number] [place] [address] 68497- 3826 Feb, [place] [id number] [place] [address] 68912- 5282 Feb, Type 2 diabetes mellitus without complication, without long- term current use of insulin E11.9 ; ARIAS on CPAP G47.33 and Preoperative evaluation to rule out surgical contraindication Z01.818 [place] [id number] [place] [address] 98520- 3745 Feb, Paranoid schizophrenia F20.0 and Depression with anxiety F41.8 [place] [id number] [place] [address] 22027- 5541 Jan, [place] [id number] [place] [address] 28194- 0510 Jan, Paranoid schizophrenia F20.0 and Depression with anxiety F41.8 [place] [id number] [place] [address] 81048- 7814 Jan, [place] [id number] [place] [address] 33167- 6341 Jan, Muscle strain T14.8 [place] [id number] [place] [address] 09124- 9794 Jan, Paranoid schizophrenia F20.0 [facility] [address], [place] [address]- 7252 Jan, [facility] [id number] [place] [address] 34659- 6670 Jan, Paranoid schizophrenia F20.0 and Depression with anxiety F41.8 [facility] [id number] [place] [address] 00510- 8585 Jan, [facility] [id number] [place] [address] 22037- 4031 Jan, [facility] [id number] [place] [address] 58302- 4829 Dec, [facility] [id number] [place] [address] 93413- 4622 Dec, Paranoid schizophrenia F20.0 [facility] [id number] [place] [address] 45645- 2958 16 Dec, 2015 Paranoid schizophrenia F20.0 and Depression with anxiety F41.8 [facility] [id number] [place] [address] 53431- 4644 Nov, [facility] [id number] [place] [address] 10558- 9646 Nov, Paranoid schizophrenia F20.0 [facility] [address] [place] [address] 16423- 0707 Nov, Paranoid schizophrenia F20.0 and Depression with anxiety F41.8 [facility] [address] [place] [address] 65604- 1092 Nov, Type 2 diabetes mellitus without complication, without long- term current use of insulin E11.9 ; Paranoid schizophrenia F20.0 ; Chronic obstructive pulmonary disease, unspecified COPD type J44.9 ; Morbid obesity due to excess calories E66.01 and Parkinsonian tremor G20 [facility] [address] [place] [address] 79045- 9845 Nov, [place] [address] [place] [address] 93280- 0744 Oct, Paranoid schizophrenia F20.0 [place] [id number] [place] [address] 15807- 9983 Oct, Paranoid schizophrenia F20.0 [place] [address] [place] [id number] [place] [address] [phone] Oct, Paranoid schizophrenia F20.0 and Depression with anxiety F41.8 [place] [address] [place] [id number] [place] [address] [phone] Oct, [place] [address] [place] [id number] [place] [address] [phone] Oct, Paranoid schizophrenia F20.0 and Depression with anxiety F41.8 [place] [address] [place] [id number] [place] [address] [id number] Oct, Nasal sore J34.89 [place] [address] [place] [id number] [place] [address] [phone] Oct, Type 2 diabetes mellitus without complication, without long- term current use of insulin E11.9 ; Depression with anxiety F41.8 ; Hypothyroidism, unspecified type E03.9 and History of lupus Z87.39 [place] [place] [id number] [place] [address]59- 1276 Oct, [place] [id number] [place] [address] 62058- 5856 Oct, Type 2 diabetes mellitus without complication, [...] edema R60.9 and History of lupus Z87.39 [facility] [id number] [place] [address] 69766- 6478 Feb, [facility] [address] [id number] [address] 9209 Jan, [facility] [id number] [place] [address] 79104- 7824 Jan, [facility] [id number] [place] [address] 54823- 0774 Jan, [facility] [id number] [place] [address] 19816- 7405 Dec, [facility] [id number] [place] [address] 59225- 7180 Nov, [facility] [id number] [place] [address] 34120- 9525 Nov, [facility] [id number] [place] [address] 89084- 2560 Oct, [facility] [id number] [place] [address] 41791- 1037 Oct, [facility] [address], [place] [address] 3015 Oct, [facility] [id number] [place] [address] 12536- 7977 Sep, Allergic rhinitis 477.9 [facility] [id number] [place] [address] 56071- 4314 Sep, Rhinitis, allergic 477.9 [facility] [id number] [place] [address] 30524- 3803 Sep, Rhinitis, allergic 477.9 [facility] [address] [id number], [place] [address] 1355 Sep, [facility] [place] [facility] [address] [id number] [place] [address]- 2159 August, [facility] [place] [facility] [address] [id number] [place] [address]- 9900 August, [facility] [place] [facility] [address] [id number] [place] [address]- 1426 August, [facility] [place] [facility] [address] [id number] [place] [address]- 9061 Jul, [facility] [place] [facility] [address] [id number] [place] [address]- 5795 Jul, [facility] [place] [facility] [address] [id number] [place] [address]- 5660 Jul, [facility] [place] [facility] [address] [id number] [place] [address]- 4902 Jun, [facility] [place] [facility] [address] [id number] [place] [address]- 9007 Jun, [facility] [place] [facility] [address] [id number] [place] [address]- 2304 Jun, [facility] [place] [facility] [address] [id number] [place] [address]- 6635 Jun, [facility] [place] [facility] [address] [id number] [place] [address]- 6678 Jun, [facility] [place] [facility] [address] [id number] [place] [address]- 9995 Jun, [facility] [place] [facility] [address] [id number] [place] [address]- 5686 Jun, [facility] [place] [facility] [address] [id number] [place] [address]- 8678 Jun, [facility] [place] [facility] [address] [id number] [place] [address]- 7216 May, [facility] [place] [facility] [address] [id number] [place] [address]- 5180 May, [facility] [place] [facility] [address] [id number] [place] [address]- 3546 May, [facility] [place] [facility] [address] [id number] [place] [address]- 1659 May, [facility] [place] [facility] [address] [facility] [id number] [place] [address]- 1985 Apr, [facility] [place] [facility] [address] [id number] [place] 0966 Mar, [facility] [place] [facility] [address] [id number] [place] [address]- 6671 Mar, [facility] [place] [facility] [address] [facility] [id number] [place] [address]- 6391 Mar, [facility] [place] [facility] [address] [facility] [id number] [place] [address]- 5296 Mar, [facility] [place] [facility] [address] [id number] [place] [address]- 5787 Mar, [facility] [place] [facility] [address] [id number] [place] [address]- 0332 Mar, [facility] [place] [facility] [address] [facility] [id number] [place] [address]- 3027 Mar, [facility] [place] [facility] [address] [facility] [id number] [place] [address]- 1425 Mar, [facility] [place] [facility] [address] [id number] [place] [address]- 4736 Mar, [facility] [place] [facility] [address] [id number] [place] [address]- 3658 Feb, [facility] [place] [facility] [address] [facility] [id number] [place] [address]- 6629 Feb, [facility] [place] [facility] [address] [facility] [id number] [place] [address]- 6692 Feb, [facility] [place] [facility] [address] [id number] [place] [address]- 9744 17 Feb, 2014 [facility] [place] [facility] [address] [id number] [place] [address]- 2818 14 Feb, 2014 [facility] [place] [facility] [address] [id number] [place] [address]- 8832 14 Feb, 2014 [facility] [place] [facility] [address] [id number] [place] [address]- 9301 12 Feb, 2014 [facility] [place] [facility] [address] [id number] [place] [address]- 3204 12 Feb, 2014 [facility] [place] [facility] [address] [id number] [place] [address]- 6361 23 Jan, 2014 [facility] [place] [facility] [address] [id number] [place] [address]- 8509 23 Jan, 2014 [facility] [place] [facility] [address] [id number] [place] [address]- 1537 16 Jan, 2014 [facility] [place] [facility] [address] [id number] [place] [address]- 2747 16 Jan, 2014 [facility] [place] [facility] [address] [id number] [place] [address]- 0906 15 Jan, 2014 [facility] [place] [facility] [address] [id number] [place] [address]- 3575 15 Jan, 2014 [facility] [place] [facility] [address] [id number] [place] [address]- 2508 14 Jan, 2014 [facility] [place] [facility] [address] [id number] [place] [address]- 8643 14 Jan, 2014 [facility] [place] [facility] [address] [id number] [place] [address]- 2468 14 Jan, 2014 [facility] [place] [facility] [address] [id number] [place] [address]- 2582 14 Jan, 2014 [facility] [place] [facility] [address] [id number] [place] [address]- 3219 Dec, [facility] [place] [facility] [address] [id number] [place] [address]- 3007 Dec, [facility] [place] [facility] [address] [id number] [place] [address]- 6020 Dec, [facility] [place] [facility] [address] [id number] [place] [address]- 6137 Dec, [facility] [place] [facility] [address] [id number] [place] [address]- 4882 Nov, [facility] [place] [facility] [address] [id number] [place] [address]- 3830 Nov, [facility] [place] [facility] [address] [id number] [place] [address]- 9372 Nov, [facility] [place] [facility] [address] [id number] [place] [address]- 9940 Nov, [facility] [place] [facility] [address] [id number] [place] [address]- 7198 Nov, [facility] [place] [facility] [address] [id number] [place] [address]- 1615 Oct, [facility] [place] [facility] [address] [id number] [place] [address]- 2832 Oct, [facility] [place] [facility] [address] [id number] [place] [address]- 5971 Oct, [facility] [place] [facility] [address] [id number] [place] [address]- 9864 Oct, [facility] [place] [facility] [address] [id number] [place] [address]- 1324 Sep, [facility] [place] [facility] [address] [id number] [place] [address]- 9157 Sep, [facility] [place] [facility] [address] [id number] [place] [address]- 1179 Sep, [facility] [place] [facility] [address] [id number] [place] [address]- 0064 Sep, [facility] [place] [facility] [address] [id number] [place] [address]- 3080 Sep, [facility] [place] [facility] [address] [id number] [place] [address]- 7139 Sep, [facility] [place] [facility] [address] [id number] [place] [address]- 7090 Sep, [facility] [place] [facility] [address] [id number] [place] [address]- 3430 Sep, [facility] [place] [facility] [address] [id number] [place] [address]- 2068 August, [facility] [place] [facility] [address] [id number] [place] [address]- 0836 August, [facility] [place] [facility] [address] [id number] [place] [address]- 2421 August, [facility] [place] [facility] [address] [id number] [place] [address]- 6385 August, [facility] [place] [facility] [address] [id number] [place] [address]- 8394 August, [facility] [place] [facility] [address] [id number] [place] [address]- 5950 August, [facility] [place] [facility] [address] [id number] [place] [address]- 0641 August, [facility] [place] [facility] [address] [id number] [place] [address]- 6964 Jul, [facility] [place] [facility] [address] [id number] [place] [address]- 5795 Jul, [facility] [place] [facility] [address] [id number] [place] [address]- 0646 Jul, [facility] [place] [facility] [address] [id number] [place] [address]- 5754 Jul, [facility] [place] [facility] [address] [id number] [place] [address]- 9065 Jul, [facility] [place] [facility] [address] [id number] [place] [address]- 0240 Jul, [facility] [place] [facility] [address] [id number] [place] 3186 Jul, [facility] [place] [facility] [address] [id number] [place] [address]- 6338 Jul, [facility] [place] [facility] [address] [id number] [place] [address]- 7918 Jul, [facility] [place] [facility] [address] [id number] [place] [address]- 7073 Jul, [facility] [place] [facility] [address] [id number] [place] [address]- 0233 Jul, [facility] [place] [facility] [address] [id number] [place] [address]- 7476 Jul, [facility] [place] [facility] [address] [id number] [place] [address]- 5580 Jun, [facility] [place] [facility] [address] [id number] [place] [address]- 6100 Jun, [facility] [place] [facility] [address] [id number] [place] [address]- 8288 Jun, [facility] [place] [facility] [address] [id number] [place] [address]- 2989 Jun, [facility] [place] [facility] [address] [id number] [place] [address]- 9872 Jun, [facility] [place] [facility] [address] [id number] [place] [address]- 9271 May, [facility] [place] [facility] [address] [id number] [place] [address]- 3842 May, [facility] [place] [facility] [address] [id number] [place] [address]- 8915 May, 2013 [facility] [address] [facility] [id number] [place] [address]- 2975 May, [facility] [place] [facility] [address] [facility] [id number] [place] 4806 May, [facility] [place] [facility] [address] [facility] [id number] [place] [address]- 2674 May, [facility] [place] [facility] [address] [facility] [id number] [place] [address]- 3873 May, [facility] [place] [facility] [address] [facility] [id number] [place] [address]- 2267 May, [facility] [place] [facility] [address] [facility] [id number] [place] [address]- 3460 Mar, [facility] [address] [facility] [id number], [place] [address]- 4536 Mar, [facility] [place] [facility] [address] [facility] [id number], [place] [address]- 2604 Mar, [facility] [place] [facility] [address] [facility] [id number] [place] [address]- 0530 Mar, [facility] [place] [facility] [address] [facility] [id number] [place] [address]- 1756 Mar, [facility] [place] [facility] [address] [facility] [id number], [place] [address]- 1471 Mar, [facility] [place] [facility] [address] [facility] [id number], [place] [address]- 6479 Feb, [facility] [place] [facility] [address] [facility] [id number], [place] [address]- 9975 Feb, [facility] [place] [facility] [address] [facility] [id number], [place] [address]- 0613 Jan, [facility] [place] [facility] [address] [facility] [id number], [place] [address]- 7116 Jan, [facility] [place] [facility] [address] [id number] [place] [address]- 3944 Jan, [facility] [place] [facility] [address] [id number] [place] [address]- 9818 Jan, [facility] [place] [facility] [address] [id number] [place] [address]- 7350 Jan, [facility] [place] [facility] [address] [id number] [place] [address]- 8563 Jan, [facility] [place] [facility] [address] [id number] [place] [address]- 8893 Jan, [facility] [place] [facility] [address] [id number] [place] [address]- 9380 Jan, [facility] [place] [facility] [address] [id number] [place] [address]- 2872 Jan, [facility] [place] [facility] [address] [id number] [place] [address]- 8089 Jan, [facility] [place] [facility] [address] [id number] [place] [address]- 8932 Dec, [facility] [place] [facility] [address] [id number] [place] [address]- 1405 Nov, [facility] [place] [facility] [address] [id number] [place] [address]- 4495 Nov, [facility] [place] [facility] [address] [id number] [place] [address]- 6978 Nov, [facility] [place] [facility] [address] [id number] [place] [address]- 1490 Oct, [facility] [place] [facility] [address] [id number] [place] [address]- 2545 Oct, [facility] [place] [facility] [address] [id number] [place] [address]- 2546 August, [facility] [place] [facility] [address] [id number] [place] [address]- 4107 Apr, [facility] [address] [id number], [place] [address]- 1912 Apr, [facility] [address], [place] [address]- 1950 Feb, [facility] [address], [place] [address]- 6884 Feb, [facility] [address], [place] [address]- 3426 Dec, [facility] [address], [place] [address]- 1816 Dec, [facility] [address], [place] [address]- 8780 Oct, [facility] [address], [place] [address]- 7549 Oct, [facility] [address], [place] [address]- 4559 Oct, [facility] [address] [id number], [place] [address]- 2778 Jul, IMMUNIZATIONS No Known Immunizations SOCIAL HISTORY Never Assessed REASON FOR VISIT f/u KIZZ[facility] PLAN OF CARE Activity Details Follow Up 4 Weeks Reason: VITAL SIGNS Height 57 in 2017-10-15 Weight 224 lbs 2017-10-15 Heart Rate 108 bpm 2017-10-15 Respiratory Rate 20 2017-10-15 BMI 48.47 kg/m2 2017-10-15 Blood pressure systolic 138 mmHg 2017-10-15 Blood pressure diastolic 88 mmHg 2017-10-15 MEDICATIONS Medication Instructions Dosage Frequency Start Date End Date Duration Status Restasis 0.05 % instill 1 drop into affected eye(s) by ophthalmic route 2 times per day Oct, Active Zoloft 50 MG Orally Once a day 1 tablet 24h Active Sumatriptan Succinate 50 mg Orally Twice a day 1 tablet as needed for migraine- may repeat in 2 hours if needed 12h 10 Active Myrbetriq 50 MG Orally Once a day 1 tablet 24h Active Tramadol HCl 50 mg Orally 2 times a day 1 tablet as needed 12h 28 days Active Loxapine Succinate 25 MG Orally 4 times a day PRN 1 capsule 30 days Active Norvasc 10 mg Orally Once a day 1 tablet 24h Active Invega Sustenna 234 MG/1.5ML Intramuscular Once a month, on the 10th of every month 1.5 ml 30 days Active Tizanidine HCl 4 MG Orally 3 times a day 1 1/2 tablets 8h Active Incontinence Supply Disposable SUPPLIES as directed Feb, 30 days Active Singulair 10 MG Orally Once a day 1 tablet in the evening 24h Jan, 30 day(s) Active Fluticasone Propionate 50 MCG/ACT Nasally Once a day 1 spray in each nostril 24h Jun, 30 day(s) Active Ibuprofen 800MG TAKE ONE TABLET BY MOUTH THREE TIMES DAILY NEEDED Active Januvia 100MG Orally Once a day 1 tablet 24h 30 days Active Neurontin 600 mg Orally 2 times a day 1 tablet 12h 30 days Active Lisinopril 2.5 MG Orally Once a day 1 tablet 24h Nov, Active Spironolactone 50MG Orally Once a day 1 tablet 24h Active HydrOXYzine HCl 50 mg TAKE ONE TO TWO TABLETS BY MOUTH EVERY 8 HOURS NEEDED FOR 30 DAYS Active Ventolin HFA 108 (90 Base) MCG/ACT Inhalation every 4 hrs 2 puffs as needed 4h Feb, Active Zoloft 100 MG Orally Once a day 2 tablet 24h Mar, 30 days Active Breo Ellipta 100-25 mcg/inh INHALE ONE PUFF BY MOUTH ONCE DAILY AT THE SAME TIME EACH DAY Active Pravastatin Sodium 20 MG Orally Once a day 1 tablet 24h Active Plaquenil 200 mg Orally Once a day 1 tablet with food or milk 24h Active Ambien 5 mg Orally Once a day 1 tablet at bedtime 24h Oct, 28 days Active Estradiol 1 MG TAKE 1 TABLET BY MOUTH ONCE DAILY 30 Active Omeprazole 40 MG Orally Once a day 1 capsule 24h Active Cetirizine HCl Not-Taking Metformin HCl 1000MG Orally 2 times a day TAKE ONE TABLET BY MOUTH TWICE DAILY 12h 90 days Active Haloperidol 0.5 MG Orally twice a day PRN 1 tablet Sep, 30 day(s) Active Levothyroxine Sodium 175 MCG Orally Once a day 1 tablet 24h 30 Active Cetirizine HCl 10 mg Orally Once a day 1 tablet 24h Jun, Sep, 90 days Active RESULTS No Results PROCEDURES Procedure Date Ordered Result Body Site [facility] VISIT ESTABLISHED PATIENT October 15, 2017 INSTRUCTIONS MEDICATIONS ADMINISTERED No Known Medications [...] for psychosis/mental illness , last one in [facility] 4 years ago
--- OUTSIDE RECORDS SUMMARY | 2018-09-02 13:38 | XMS REPORT ---
Author Author SOTO STRICKLAND Organization [facility], [place] Address [address] [place] [address] Care Team Providers Care Vice President Compliance Name Role Phone SOTO STRICKLAND Unavailable PROBLEMS Type Condition ICD9-CM Code AGT64-RL Code Onset Dates Condition Status SNOMED Code Problem OAB (overactive bladder) N32.81 Active 425768730 Problem Depression with anxiety F41.8 Active 199682466 Problem Other seasonal allergic rhinitis J30.2 Active 226457751 Problem Chronic obstructive pulmonary disease, unspecified COPD type J44.9 Active 79834792 Problem Tobacco abuse Z72.0 Active 652087922 Problem Morbid obesity due to excess calories E66.01 Active 633234236 Problem Dyslipidemia E78.5 Active 976988742 Problem Hypothyroidism (acquired) E03.9 Active 293031737 Problem Essential hypertension I10 Active 05667807 Problem Diabetic polyneuropathy associated with type 2 diabetes mellitus E11.42 Active 266992326 Problem Type 2 diabetes mellitus with diabetic neuropathic arthropathy, 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 Active 187041328 Problem Type 2 diabetes mellitus without complication, without long-term current use of insulin E11.9 Active 484050849 Problem Paranoid schizophrenia F20.0 Active 52343873 Problem Chronic pain syndrome G89.4 Active 176461555 Problem Migraine without aura and without status migrainosus, not intractable G43.009 Active 035197186 Problem Gastroesophageal reflux disease, esophagitis presence not specified K21.9 Active 170098615 Problem Seasonal allergic rhinitis due to pollen J30.1 Active 86491013 Problem COPD exacerbation J44.1 Active 852574110 Problem Seasonal allergic rhinitis due to other allergic trigger J30.89 Active 451661178 Problem Schizoaffective disorder, depressive type F25.1 Active 19932477 Problem History of lupus Z87.39 Active 388291546 Problem Gastroesophageal reflux disease without esophagitis K21.9 Active 859584877 Problem Menopausal syndrome (hot flashes) N95.1 Active 858846152 Problem Other allergic rhinitis J30.89 Active 676164450 Problem Primary insomnia F51.01 Active 4615486 Problem DM neuro manif type II E11.49 Active 08289868 ALLERGIES No Information ENCOUNTERS Encounter Location Date Diagnosis [facility], [place] [address], [place] [address] Dec, [place] [address] [place] [id number] [place] [address] 83761- 6102 Dec, [facility], [place] [address] [place] [id number] [place] [address] 93386- 4373 Nov, [place] [address] [place] [id number] [place] [address] 69637- 7843 Nov, [place] [address] [place] [id number] [place] [address] 09848- 5890 Nov, [place] [address] [id number] [place] [address] 19740- 2160 Nov, Schizoaffective disorder, depressive type F25.1 [place] [address] [id number] [place] [address] 76218- 2164 Nov, Well woman exam Z01.419 ; BMI 45.0-49.9, adult Z68.42 ; Screening breast examination Z12.31 and Dietary counseling and surveillance Z71.3 [place] [address] [place] [address] 16908- 4920 Nov, Paranoid schizophrenia F20.0 [place] [address] [place] [address] 88244- 1608 Nov, Gastroesophageal reflux disease, esophagitis presence not specified K21.9 [place] [address] [place] [id number] [place] [address] 21979- 7196 Oct, Paranoid schizophrenia F20.0 [facility] [id number] [address] Oct Chronic pain syndrome G89.4 and Schizoaffective disorder, depressive type F25.1 [place] [address] [place] [id number] [place] [address] 66236- 1704 18 Oct, 2017 Chronic pain syndrome G89.4 and Schizoaffective disorder, depressive type F25.1 [place] [address] [place] [id number] [place] [address] 65134- 9813 16 Oct, 2017 Type 2 diabetes mellitus without complication, without long- term current use of insulin E11.9 [place] [address] [place] [id number] [place] [address] 14565- 1705 Oct, Essential hypertension I10 and DM neuro manif type II E11.49 [place] [address] 62931- 9491 Oct, [place] [address] [place] [id number] [place] [address] 47127- 1286 Oct, Schizoaffective disorder, depressive type F25.1 and BMI 45.0 -49.9, adult Z68.42 [place] [address] [place] [id number] [place] [address] 76422- 8180 Oct, [place] [address] [place] [id number] [place] [address] 20334- 0429 Oct, Paranoid schizophrenia F20.0 [place] [address] [place] [id number] [place] [address] 08365- 1968 Oct, Type 2 diabetes mellitus with diabetic neuropathic arthropathy, 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 ; Essential hypertension I10 ; Hypothyroidism (acquired) E03.9 ; Chronic obstructive pulmonary disease, unspecified COPD type J44.9 and Diabetic polyneuropathy associated with type 2 diabetes mellitus E11.42 [place] [address] [place] [id number] [place] [address] 68569- 4128 Sep, Paranoid schizophrenia F20.0 [place] [address] 96704- 9993 Sep, Paranoid schizophrenia F20.0 and BMI 45.0-49.9, adult Z68.42 [facility], [place] [address] [place] [address] 13021- 7629 Sep, Schizoaffective disorder, depressive type F25.1 [facility], [place] [address] [id number] [place] [address] 69164- 7082 Sep, [facility] [place] [id number] [place] [address] 43808- 1040 Sep, Paranoid schizophrenia F20.0 [facility], [place] [id number] [place] [address] 29870- 7102 Sep, [facility] [place] [id number] [place] [address] 72655- 8666 Sep, Hypothyroidism (acquired) E03.9 [facility], [place] [id number] [place] [address] 91751- 0799 Sep, [facility] [place] [id number] [place] [address] 25349- 0550 August, Schizoaffective disorder, depressive type F25.1 [facility], [place] [id number] [place] [address] 81623- 9695 August, [facility] [place] [id number] [place] [address] 19412- 3875 August, [facility] [place] [id number] [place] [address] 83336- 7169 August, [facility] [place] [id number] [place] [address] 05055- 3237 August, Paranoid schizophrenia F20.0 [facility] [place] [id number] [place] [address] 74431- 5259 August, History of lupus Z87.39 and Chronic pain syndrome G89.4 [facility], [place] [address] [place] [address] 27719- 3369 August, [facility] [id number] [place] [address] 37985 -0168 August, Seasonal allergic rhinitis, unspecified trigger J30.2 and BMI 45.0-49.9, adult Z68.42 [place] [address] 32005- 8506 Jul, Schizoaffective disorder, depressive type F25.1 [place] [address] 73469- 1381 Jul, [place] [address] 07256- 2030 Jul, Hypothyroidism (acquired) E03.[address] 41417- 9093 Jul, Chronic obstructive pulmonary disease, unspecified COPD type J44.9 and Type 2 diabetes mellitus without complication, without long-term current use of insulin E11.9 [place] [address] 87148- 6473 Jul, Paranoid schizophrenia F20.0 [place] [address] 94977- 8924 Jun, Hypothyroidism (acquired) E03.9 and Seasonal allergic rhinitis due to pollen J30.1 [facility] [id number] [place] [address] 05160 -8566 Jun, Shortness of breath at rest R06.02 ; COPD exacerbation J44.1 and BMI 45.0-49.9, adult Z68.42 [place] [address] [id number] [place] [address] 49443- 4791 Jun, [address] 21954- 5542 Jun, Paranoid schizophrenia F20.0 ; Depression with anxiety F41.8 and BMI 45.0-49.9, adult Z68.42 [place] [address] 94995- 6878 Jun, Schizoaffective disorder, depressive type F25.1 [facility] [address] [place] [address] [phone] Jun, Dental caries K02.9 [facility], [place] [id number] [place] [address]271 Jun, Paranoid schizophrenia F20.0 [facility], [place] [address] [id number] [place] [address] 1930 May, Migraine without aura and without status migrainosus, not intractable G43.009 ; DM neuro manif type II E11.49 and Type 2 diabetes mellitus without complication, without long-term current use of insulin E11.9 [facility], [place] [address] [id number] [place] [address] 3357 May, Migraine without aura and without status migrainosus, not intractable G43.009 [facility], [place] [id number] [place] [address] 3193 May, Depression with anxiety F41.8 [facility] [address] [id number] [place] [address] [id number] May, [facility], [place] [address] [id number] [place] [id number] 0627 May, [facility] [place] [id number] [place] [address] 59768- 7286 May, [facility], [place] [id number] [place] [address] 8366 May, Hypothyroidism (acquired) E03.9 [facility], [place] [address] [id number] [place] [address] 39130- 9888 May, Paranoid schizophrenia F20.0 [facility], [place] [address] [place] [id number]- 5259 May, Type 2 diabetes mellitus without complication, [...] N32.81 and Controlled substance agreement signed Z79.899 [place] [address] 97497- 8037 May, Controlled substance agreement signed Z79.899 [place] [address] 86429- 5438 Apr, [facility] [address] [id number] Apr, Dental examination Z01.20 [place] [address] 52799- 2758 Apr, Paranoid schizophrenia F20.0 [place] [address] 17900- 0549 Apr, Hypertension, unspecified type I10 [place] [address] 77965- 3938 Apr, Paranoid schizophrenia F20.0 [place] [address] 95063- 7447 Apr, [place] [address] 01122- 5986 Apr, Tobacco abuse Z72.0 [facility] [place] [address] 46143- 7406 Apr, [place] [address] 14841- 6850 Mar, [place] [address] 46415- 6191 27 Mar, 2017 Paranoid schizophrenia F20.0 and BMI 45.0-49.9, adult Z68.42 [place] [address] 50532- 0807 15 Mar, 2017 Schizoaffective disorder, depressive type F25.1 [place] [address] 40102- 5285 14 Mar, 2017 [place] [address] 23593- 5398 Mar, Schizoaffective disorder, depressive type F25.1 [place] [address] 50898- 8769 Mar, Hypothyroidism, unspecified type E03.9 [facility] [address] [place] [id number] [place] [address] 27072 -1137 Feb, Gastroenteritis K52.9 and BMI 45.0-49.9, adult Z68.42 [place] [address] 55044- 0886 Feb, [place] [address] 28820- 5302 Feb, [place] [address] [place] [id number] [place] [address] 72538- 3633 Feb, [place] [address] 57071- 3307 16 Feb, 2017 [place] [address] [place] [id number] [place] [address] 31541- 3508 10 Feb, 2017 Paranoid schizophrenia F20.0 [place] [address] 21316- 8720 06 Feb, 2017 Gastroesophageal reflux disease without esophagitis K21.9 ; Other seasonal allergic rhinitis J30.2 ; Other allergic rhinitis J30.89 ; Tobacco abuse Z72.0 and BMI 40.0-44.9, adult Z68.41 [place] [address] [place] [id number] [place] [address] 36212- 2264 Feb, Onychomycosis B35.1 ; Callus of foot L84 and DM neuro manif type II E11.49 [place] [address] 14703- 6981 Jan, Chronic allergic rhinitis J30.9 [place] [address] 06687- 0829 Jan, [place] [address] 34313- 1681 Jan, Schizoaffective disorder, depressive type F25.1 [place] [address] 48620- 9144 Jan, [facility] [address] 15719 -2652 Jan, Sore throat J02.9 and Seasonal allergic rhinitis due to other allergic trigger J30.89 [place] [address] 31017- 0261 Jan, [place] [address] 41912- 3727 Jan, [facility] [address] 36969 -2181 Jan, Chronic allergic rhinitis J30.9 [place] [address] 92979- 7622 Dec, Paranoid schizophrenia F20.0 ; Primary insomnia F51.01 and Schizoaffective disorder, depressive type F25.1 [place] [address] 84665- 5715 Dec, Chronic pain syndrome G89.4 ; Cervicalgia of occipito- atlanto-axial region M54.2 ; Menopausal syndrome (hot flashes) N95.1 and Encounter for immunization Z23 [place] [address] [place] [address]- 4409 14 Dec, 2016 [facility] [place] [id number] [place] [address] 90840- 1128 13 Dec, 2016 [facility] [place] [address] [id number] [place] [address] 28714- 4993 08 Dec, 2016 Paranoid schizophrenia F20.0 [facility] [place] [address] [id number] [place] [address] 01090- 2597 Dec, Schizoaffective disorder, depressive type F25.1 [facility] [place] [id number] [place] [address] 04655- 4229 Nov, Hypothyroidism, unspecified type E03.9 [facility] [id number] [place] [address] 55150 -1978 Nov, Acute seasonal allergic rhinitis due to other allergen J30.89 [facility] [place] [address] [id number] [place] [address] 36622- 0288 Nov, [facility] [place] [address] [place] [id number] [place] [address] 46925- 8230 Nov, Hypothyroidism, unspecified type E03.9 and Other elevated white blood cell (WBC) count D72.828 [place] [address] [id number] [place] [address] 51766- 1932 Nov, Schizoaffective disorder, depressive type F25.1 [facility] [place] [id number] [place] [address] 75769- 5182 Nov, Paranoid schizophrenia F20.0 [facility] [place] [id number] [place] [address] 21056- 8461 Nov, Type 2 diabetes mellitus without complication, without long- term current use of insulin E11.9 ; Morbid obesity due to excess calories E66.01 and Chronic pain syndrome G89.4 [facility] [place] [address] [place] [address] 90639- 9580 Oct, Paranoid schizophrenia F20.0 [place] [address], [place] [address]- 6369 Oct, [place] [address] [place] [id number] [place] [address] 66564- 5777 Oct, Schizoaffective disorder, depressive type F25.1 [place] [address] [place] [id number] [place] [address] 63647- 2649 Oct, Hypothyroidism, unspecified type E03.9 and Other elevated white blood cell (WBC) count D72.828 [place] [address] [place] [id number] [place] [address] 56306- 7076 Oct, Morbid obesity due to excess calories E66.01 ; Chronic obstructive pulmonary disease, unspecified COPD type J44.9 ; History of lupus Z87.39 ; Hypothyroidism, unspecified type E03.9 ; Gastroesophageal reflux disease without esophagitis K21.9 ; Primary insomnia F51.01 and Chronic pain syndrome G89.4 [place] [address] [place] [id number] [place] [address] 35338- 1340 Sep, [place] [address] [place] [id number] [place] [address] 94023- 1317 Sep, [place] [address] [place] [id number] [place] [address] 19284- 9863 Sep, [place] [address] [place] [address] 60886- 7909 Sep, Paranoid schizophrenia F20.0 [place] [address] [id number] [address]- 9889 Sep, [place] [address] [place] [id number] [place] [address] 40075- 4799 Sep, Paranoid schizophrenia F20.0 [place] [address] [place] [id number] [place] [address] 55693- 5926 Sep, [place] [address] [place] [id number] [place] [address] 27462- 9479 August, Paranoid schizophrenia F20.0 [place] [address] [place] [id number] [place] [address] 51197- 0927 Jul, [place] [address] 77137- 6631 Jul, Type 2 diabetes mellitus without complication, without long- term current use of insulin E11.9 ; Morbid obesity due to excess calories E66.01 ; Depression with anxiety F41.8 ; Hypothyroidism, unspecified type E03.9 ; Seasonal allergic rhinitis due to other allergic trigger J30.89 ; Pain, dental K08.89 and Gastroesophageal reflux disease without esophagitis K21.9 [facility] [address] [id number] Jul, Dental examination Z01.20 [place] [address] 02506- 0532 07 Jul, 2016 Paranoid schizophrenia F20.0 [place] [address] 60727- 4160 13 Jun, 2016 Paranoid schizophrenia F20.0 and Depression with anxiety F41.8 [place] [address] 21191- 1527 Jun, Paranoid schizophrenia F20.0 and Depression with anxiety F41.8 [place] [address] [place] [id number] [place] [address] 25989- 2406 Jun, [place] [address] [place] [id number] [place] [address] 99653- 4945 Jun, [facility] [id number] [place] [address] 54660 -0908 Jun, Seasonal allergic rhinitis due to other allergic trigger J30.89 [facility] [id number] [place] [address] 94037 -8998 May, Sore throat J02.9 ; Other viral agents as the cause of diseases classified elsewhere B97.89 and Acute upper respiratory infection, unspecified J06.9 [place] [address] [place] [place] [id number] [place] [address] 43834- 7256 08 May, 2016 Paranoid schizophrenia F20.0 and Depression with anxiety F41.8 [place] [address] [id number] [place] [address] 34537- 0080 Apr, Other seasonal allergic rhinitis J30.2 [place] [address] 76031- 4603 Apr, Paranoid schizophrenia F20.0 and Depression with anxiety F41.8 [facility] [place] [address] 36827 -1770 Apr, Bronchitis J40 and Sore throat J02.9 [place] [address] 22808- 3033 Apr, Type 2 diabetes mellitus without complication, without long- term current use of insulin E11.9 [facility] [place] [address] 25401 -3621 Apr, Bronchitis J40 [place] [address] 87975- 5564 Apr, [place] [address] [place] [place] [id number] [place] [address] 45743- 4599 Apr, [place] [address] [place] [id number] [place] [address] 87944- 2687 Mar, Type 2 diabetes mellitus without complication, [...] Other seasonal allergic rhinitis J30.2 [place] [id number] [place] [address] 82275- 1326 Mar, Paranoid schizophrenia F20.0 and Depression with anxiety F41.8 [facility] [place] [address], [place] [address]- 3742 Feb, [facility] [place] [address] [place] [id number] [place] [address] 36931- 3723 Feb, [facility] [place] [id number] [place] [address] 49647- 2519 Feb, [facility] [place] [id number] [place] [address] 22056- 5765 Feb, [facility] [place] [address] [id number] [place] [address] 16428- 6879 Feb, Type 2 diabetes mellitus without complication, without long- term current use of insulin E11.9 ; ARIAS on CPAP G47.33 and Preoperative evaluation to rule out surgical contraindication Z01.818 [place] [address] [place] [place] [id number] [place] [address] 64804- 3823 Feb, Paranoid schizophrenia F20.0 and Depression with anxiety F41.8 [facility] [place] [address] [place] [place] [id number] [place] [address] 28684- 6041 Jan, [place] [address] [place] [id number] [place] [address] 08016- 1178 Jan, Paranoid schizophrenia F20.0 and Depression with anxiety F41.8 [facility] [place] [address] [place] [id number] [place] [address] 88892- 9537 Jan, [facility] [place] [address] [place] [id number] [place] [address] 05486- 6285 Jan, Muscle strain T14.8 [facility] [place] [address] [place] [id number] [place] [address] 66773- 3846 Jan, Paranoid schizophrenia F20.0 [facility] [place] [address] [place] [id number] [place] [address] 65833- 5609 07 Jan, 2016 [facility] [place] [address] [place] [id number] [place] [address] 54889- 0844 Jan, Paranoid schizophrenia F20.0 and Depression with anxiety F41.8 [facility] [place] [address] [address]- 6876 Jan, [facility] [place] [address] [place] [address] 57722- 4317 Jan, [facility] [place] [address] [place] [id number] [place] [address] 29596- 5411 Dec, [facility] [place] [address] [place] [address] 83426- 6608 Dec, Paranoid schizophrenia F20.0 [facility] [place] [address] [place] [id number] [place] [address] 42952- 6496 16 Dec, 2015 Paranoid schizophrenia F20.0 and Depression with anxiety F41.8 [facility], [place] [id number] [place] [address] [phone] Nov, [facility], [place] [id number] [place] [address] [phone] Nov, Paranoid schizophrenia F20.0 [facility], [place] [id number] [place] [address] [phone] Nov, Paranoid schizophrenia F20.0 and Depression with anxiety F41.8 [facility], [place] [id number] [place] [address] [phone] Nov, Type 2 diabetes mellitus without complication, without long- term current use of insulin E11.9 ; Paranoid schizophrenia F20.0 ; Chronic obstructive pulmonary disease, unspecified COPD type J44.9 ; Morbid obesity due to excess calories E66.01 and Parkinsonian tremor G20 [facility], [place] [address] [address] Nov, [facility], [place] [id number] [place] [address] 60573- 6925 Oct, Paranoid schizophrenia F20.0 [facility], [place] [id number] [place] [address] 28875- 6551 Oct, Paranoid schizophrenia F20.0 [place] [id number] [place] [address] 65849- 6784 Oct, Paranoid schizophrenia F20.0 and Depression with anxiety F41.8 [place] [id number] [place] [address] 77714- 0861 Oct, [place] [id number] [place] [address] 69937- 3031 Oct, Paranoid schizophrenia F20.0 and Depression with anxiety F41.8 [place] [id number] [place] [address] 91483- 4483 Oct, Nasal sore J34.89 [place] [id number] [place] [address] 93248- 9147 Oct, Type 2 diabetes mellitus without complication, without long- term current use of insulin E11.9 ; Depression with anxiety F41.8 ; Hypothyroidism, unspecified type E03.9 and History of lupus Z87.39 [place] [id number] [place] [address] 69088- 8466 Oct, [place] [id number] [place] [address] 93734- 3855 Oct, Type 2 diabetes mellitus without complication, [...] edema R60.9 and History of lupus Z87.39 [place] [id number] [place] [address] 22019- 4525 Feb, [place] [address] [facility] [id number] [place] [address] 1693 Jan, [facility] [address] [facility] [id number] [place] [address]- 1168 Jan, [facility] [address] [facility] [id number] [place] [address]- 1732 Jan, [facility] [address] [facility] [id number] [place] [address]- 0231 Dec, [facility] [address] [facility] [id number] [place] [address]- 8413 Nov, [facility] [id number] [place] [address]- 0938 Nov, [facility] [id number] [place] [address]- 1351 Oct, [facility] [id number] [place] [address]- 8599 Oct, [facility] [address] [id number] [place] [address]- 6479 Oct, [facility] [address], [place] [address] 7723 Sep, Allergic rhinitis 477.9 [facility], [place] [id number] [place] [address]- 1740 Sep, Rhinitis, allergic 477.9 [facility] [address] [id number], [place] [address] 7506 Sep, Rhinitis, allergic 477.9 [facility] [address] [id number] [place] [address]- 3417 Sep, [facility] [address] [id number] [place] [address]- 7321 August, [facility] [address] [id number], [place] [address]- 0758 August, [facility] [place] [facility] [address] [id number] [place] [address]- 8357 August, [facility] [place] [facility] [address] [id number] [place] [address]- 6280 28 Jul, 2014 [facility] [place] [facility] [address] [id number] [place] [address]- 5801 14 Jul, 2014 [facility] [place] [facility] [address] [id number] [place] [address]- 7706 13 Jul, 2014 [facility] [place] [facility] [address] [id number] [place] [address]- 7756 16 Jun, 2014 [facility] [place] [facility] [address] [id number] [place] [address]- 3107 16 Jun, 2014 [facility] [place] [facility] [address] [id number] [place] [address]- 6183 Jun, [facility] [place] [facility] [address] [id number] [place] [address]- 5486 Jun, [facility] [place] [facility] [address] [id number] [place] [address]- 8622 Jun, [facility] [place] [facility] [address] [id number] [place] [address]- 2238 Jun, [facility] [place] [facility] [address] [id number] [place] [address]- 4557 Jun, [facility] [place] [facility] [address] [id number] [place] [address]- 5434 Jun, [facility] [place] [facility] [address] [id number] [place] 9363 May, [facility] [place] [facility] [address] [id number] [place] [address]- 3260 May, [facility] [place] [facility] [address] [id number] [place] [address]- 9327 11 May, 2014 [facility] [place] [facility] [address] [id number] [place] [address]- 5276 May, [facility] [place] [facility] [address] [id number] [place] [address]- 8696 Apr, [facility] [place] [facility] [address] [id number] [place] 7687 Mar, [facility] [place] [facility] [address] [id number] [place] [address]- 2400 Mar, [facility] [place] [facility] [address] [id number] [place] [address]- 3523 Mar, [facility] [place] [facility] [address] [id number] [place] [address]- 1866 Mar, [facility] [place] [facility] [address] [id number] [place] [address]- 7653 Mar, [facility] [place] [facility] [address] [id number] [place] [address]- 0390 Mar, [facility] [place] [facility] [address] [id number] [place] [address]- 1041 Mar, [facility] [place] [facility] [address] [id number] [place] [address]- 3459 Mar, [facility] [place] [facility] [address] [id number] [place] [address]- 1033 Mar, [facility] [place] [facility] [address] [id number] [place] [address]- 8074 Feb, [facility] [place] [facility] [address] [id number] [place] [address]- 7945 Feb, [facility] [place] [facility] [address] [id number] [place] [address]- 3756 Feb, [facility] [place] [facility] [address] [id number] [place] [address]- 5217 Feb, [facility] [place] [facility] [address] [id number] [place] [address]- 6837 Feb, [facility] [place] [facility] [address] [id number] [place] [address]- 5959 14 Feb, 2014 [facility] [place] [facility] [address] [id number] [place] [address]- 2068 12 Feb, 2014 [facility] [place] [facility] [address] [id number] [place] [address]- 8461 12 Feb, 2014 [facility] [place] [facility] [address] [id number] [place] [address]- 0108 23 Jan, 2014 [facility] [place] [facility] [address] [id number] [place] [address]- 1802 23 Jan, 2014 [facility] [place] [facility] [address] [id number] [place] [address]- 9539 16 Jan, 2014 [facility] [place] [facility] [address] [id number] [place] [address]- 1523 16 Jan, 2014 [facility] [place] [facility] [address] [id number] [place] [address]- 4014 15 Jan, 2014 [facility] [place] [facility] [address] [id number] [place] [address]- 1094 15 Jan, 2014 [facility] [place] [facility] [address] [id number] [place] [address]- 1651 14 Jan, 2014 [facility] [place] [facility] [address] [id number] [place] [address]- 2519 14 Jan, 2014 [facility] [place] [facility] [address] [id number] [place] [address]- 5949 14 Jan, 2014 [facility] [place] [facility] [address] [id number] [place] [address]- 6464 14 Jan, 2014 [facility] [place] [facility] [address] [id number] [place] [address]- 3238 18 Dec, 2013 [facility] [place] [facility] [address] [id number] [place] [address]- 7438 18 Dec, 2013 [facility] [place] [facility] [address] [id number] [place] [address]- 0034 Dec, [facility] [place] [facility] [address] [id number] [place] [address]- 9773 Dec, [facility] [place] [facility] [address] [id number] [place] [address]- 8712 Nov, [facility] [place] [facility] [address] [id number] [place] [address]- 4205 Nov, [facility] [place] [facility] [address] [id number] [place] [address]- 1552 Nov, [facility] [place] [facility] [address] [id number] [place] [address]- 2545 Nov, [facility] [place] [facility] [address] [id number] [place] [address]- 8075 Nov, [facility] [place] [facility] [address] [id number] [place] [address]- 4510 Oct, [facility] [place] [facility] [address] [id number] [place] [address]- 0254 Oct, [facility] [place] [facility] [address] [id number] [place] [address]- 2238 Oct, [facility] [place] [facility] [address] [id number] [place] [address]- 4634 Oct, [facility] [place] [facility] [address] [id number] [place] [address]- 4801 Sep, [facility] [place] [facility] [address] [id number] [place] [address]- 6681 Sep, [facility] [place] [facility] [address] [id number] [place] [address]- 8046 Sep, [facility] [place] [facility] [address] [id number] [place] [address]- 6234 Sep, [facility] [place] [facility] [address] [id number] [place] [address]- 5054 Sep, [facility] [place] [facility] [address] [id number] [place] [address]- 5291 Sep, [facility] [place] [facility] [address] [id number] [place] [address]- 2618 Sep, [facility] [place] [facility] [address] [id number] [place] [address]- 9406 Sep, [facility] [place] [facility] [address] [id number] [place] [address]- 8229 August, [facility] [place] [facility] [address] [id number] [place] [address]- 8936 August, [facility] [place] [facility] [address] [id number] [place] [address]- 1432 August, [facility] [place] [facility] [address] [id number] [place] [address]- 1821 August, [facility] [place] [facility] [address] [id number] [place] [address]- 7376 August, [facility] [place] [facility] [address] [id number] [place] [address]- 1787 August, [facility] [place] [facility] [address] [id number] [place] [address]- 6775 August, [facility] [place] [facility] [address] [id number] [place] [address]- 2546 Jul, [facility] [place] [facility] [address] [id number] [place] [address]- 0134 Jul, [facility] [place] [facility] [address] [id number] [place] [address]- 9164 Jul, [facility] [place] [facility] [address] [id number] [place] [address]- 8393 Jul, [facility] [place] [facility] [address] [id number] [place] [address]- 1257 Jul, [facility] [place] [facility] [address] [id number] [place] [address]- 0648 Jul, [facility] [place] [facility] [address] [id number] [place] [address]- 2533 Jul, [facility] [place] [facility] [address] [id number] [place] [address]- 9454 Jul, [facility] [place] [facility] [address] [id number] [place] [address]- 8041 Jul, [facility] [place] [facility] [address] [id number] [place] [address]- 4139 Jul, [facility] [place] [facility] [address] [id number] [place] [address]- 8496 Jul, [facility] [place] [facility] [address] [id number] [place] [address]- 3234 Jul, [facility] [place] [facility] [address] [id number] [place] [address]- 7905 Jun, [facility] [place] [facility] [address] [id number] [place] [address]- 1510 Jun, [facility] [place] [facility] [address] [id number] [place] [address]- 5766 Jun, [facility] [place] [facility] [address] [id number] [place] [address]- 9529 Jun, [facility] [place] [facility] [address] [id number] [place] [address]- 9180 Jun, [facility] [place] [facility] [address] [id number] [place] [address]- 3400 May, [facility] [place] [facility] [address] [id number] [place] [address]- 2991 May, [facility] [place] [facility] [address] [id number] [place] [address]- 1154 May, [facility] [place] [facility] [address] [id number] [place] [address]- 8725 May, [facility] [place] [facility] [address] [id number] [address]- 8668 May, 2013 [facility] [address] [id number] [place] [address]- 1020 May, 2013 [facility] [place] [facility] [address] [id number] [place] [address]- 5411 May, 2013 [facility] [place] [facility] [address] [facility] [id number] [place] [address]- 6073 May, [facility] [place] [facility] [address] [id number] [place] [address]- 0090 Mar, [facility] [place] [facility] [address] [id number] [place] [address]- 6566 Mar, [facility] [place] [facility] [address] [id number] [place] [address]- 3550 Mar, [facility] [address] [facility] [id number] [place] [address]- 2127 Mar, [facility] [place] [facility] [address] [facility] [id number] [place] [address]- 4074 Mar, [facility] [place] [facility] [address] [facility] [id number] [place] [address]- 9713 Mar, [facility] [place] [facility] [address] [facility] [id number] [place] [address]- 1163 Feb, [facility] [place] [facility] [address] [facility] [id number] [place] [address]- 0857 Feb, [facility] [place] [facility] [address] [id number], [place] [address]- 7194 Jan, [facility] [place] [facility] [address] [id number] [place] [address]- 8845 Jan, [facility] [place] [facility] [address] [facility] [id number] [place] [address]- 0098 Jan, [facility] [place] [facility] [address] [facility] [id number], [place] [address]- 4230 Jan, [facility] [place] [facility] [address] [id number] [place] [address]- 7178 Jan, [facility] [place] [facility] [address] [id number] [place] [address]- 5424 Jan, [facility] [place] [facility] [address] [id number] [place] [address]- 1865 Jan, [facility] [place] [facility] [address] [id number] [place] [address]- 1071 Jan, [facility] [place] [facility] [address] [id number] [place] [address]- 8243 Jan, [facility] [place] [facility] [address] [id number] [place] [address]- 2573 Jan, [facility] [place] [facility] [address] [id number] [place] [address]- 1031 Dec, [facility] [place] [facility] [address] [id number] [place] [address]- 1663 Nov, [facility] [place] [facility] [address] [id number] [place] [address]- 6029 Nov, [facility] [place] [facility] [address] [id number] [place] [address]- 3532 Nov, [facility] [place] [facility] [address] [id number] [place] [address]- 3943 Oct, [facility] [place] [facility] [address] [id number] [place] [address]- 2782 Oct, [facility] [place] [facility] [address] [id number] [place] [address]- 6046 August, [facility] [place] [facility] [address] [id number] [place] [address]- 5916 Apr, [facility] [place] [facility] [address] [id number] [place] [address]- 6101 Apr, [facility] [place] [facility] [address] [id number] [place] [address]- 0516 Feb, [facility] [place] [address] [facility] [id number], [place] [address]- 3846 Feb, [facility] [place] [address] [id number] [address]- 6296 Dec, [facility] [place] [address] [id number], [place] [address]- 2546 Dec, [facility] [place] [address] [id number], [place] [address]- 2546 Oct, [facility] [place] [address], [place] [address]- 4859 Oct, [facility] [place] [address], [place] [address]- 0663 Oct, [facility] [place] [address] [id number], [place] [address]- 6476 Jul, IMMUNIZATIONS No Known Immunizations SOCIAL HISTORY [...] for psychosis/mental illness , last one in [place] at [facility] 4 years ago
--- OUTSIDE RECORDS SUMMARY | 2018-09-02 13:39 | XMS REPORT ---
Author Author EDWINUMESH CASIANO Organization [facility] [address] [place] [address] Care Team Providers Care Art Critic Name Role Phone UMESH PINEDA Unavailable PROBLEMS Type Condition ICD9-CM Code HLG96-LE Code Onset Dates Condition Status SNOMED Code Problem OAB (overactive bladder) N32.81 Active 985351448 Problem Depression with anxiety F41.8 Active 238828006 Problem Other seasonal allergic rhinitis J30.2 Active 557513929 Problem Chronic obstructive pulmonary disease, unspecified COPD type J44.9 Active 02142598 Problem Tobacco abuse Z72.0 Active 226424549 Problem Morbid obesity due to excess calories E66.01 Active 623610021 Problem Dyslipidemia E78.5 Active 093518545 Problem Hypothyroidism (acquired) E03.9 Active 847473494 Problem Essential hypertension I10 Active 01058069 Problem Diabetic polyneuropathy associated with type 2 diabetes mellitus E11.42 Active 932883602 Problem Type 2 diabetes mellitus with diabetic neuropathic arthropathy, 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 Active 599469530 Problem Type 2 diabetes mellitus without complication, without long-term current use of insulin E11.9 Active 736056690 Problem Paranoid schizophrenia F20.0 Active 14917252 Problem Chronic pain syndrome G89.4 Active 905208121 Problem Migraine without aura and without status migrainosus, not intractable G43.009 Active 399934726 Problem Gastroesophageal reflux disease, esophagitis presence not specified K21.9 Active 484460747 Problem Seasonal allergic rhinitis due to pollen J30.1 Active 06323649 Problem COPD exacerbation J44.1 Active 475522652 Problem Seasonal allergic rhinitis due to other allergic trigger J30.89 Active 614043661 Problem Schizoaffective disorder, depressive type F25.1 Active 73642874 Problem History of lupus Z87.39 Active 448781012 Problem Gastroesophageal reflux disease without esophagitis K21.9 Active 006326056 Problem Menopausal syndrome (hot flashes) N95.1 Active 332561650 Problem Other allergic rhinitis J30.89 Active 093997245 Problem Primary insomnia F51.01 Active 6997202 Problem DM neuro manif type II E11.49 Active 99048614 ALLERGIES No Information ENCOUNTERS Encounter Location Date Diagnosis [place] [address], [place] [address] Dec, [place] [address] [place] [id number] [place] [address] 33751- 3476 Dec, [facility] [id number] [place] [address] 20595- 7889 Nov, [place] [address] [id number] [place] [address] 19545- 4607 Nov, [place] [address] [place] [id number] [place] [address] 39914- 7710 Nov, [place] [address] [place] [id number] [place] [address] 74818- 2225 Nov, Schizoaffective disorder, depressive type F25.1 [place] [address] [id number] [place] [address] 30452- 4858 Nov, Well woman exam Z01.419 ; BMI 45.0-49.9, adult Z68.42 ; Screening breast examination Z12.31 and Dietary counseling and surveillance Z71.3 [place] [address] [place] [address] 73118- 3614 Nov, Paranoid schizophrenia F20.0 [place] [address], [place] [address] 9127 Nov, Gastroesophageal reflux disease, esophagitis presence not specified K21.9 [place] [address], [place] [address] 3177 Oct, Paranoid schizophrenia F20.[address] [facility] [id number] [place] [address] Oct Chronic pain syndrome G89.4 and Schizoaffective disorder, depressive type F25.1 [place] [address] [place] [id number] [place] [address] 08356- 3573 18 Oct, 2017 Chronic pain syndrome G89.4 and Schizoaffective disorder, depressive type F25.1 [place] [address] [place] [id number] [place] [address] 79888- 0723 16 Oct, 2017 Type 2 diabetes mellitus without complication, without long- term current use of insulin E11.9 [place] [address] [place] [id number] [place] [address] 37704- 6912 Oct, Essential hypertension I10 and DM neuro manif type II E11.49 [place] [address] 96160- 2531 Oct, [place] [address] [place] [id number] [place] [address] 13192- 9730 Oct, Schizoaffective disorder, depressive type F25.1 and BMI 45.0 -49.9, adult Z68.42 [place] [address] [place] [id number] [place] [address] 32019- 3016 Oct, [place] [address] [place] [address] [id number] [place] [address] 38069- 2467 Oct, Paranoid schizophrenia F20.0 [place] [address] [address] [id number] [place] [address] 03046- 3612 Oct, Type 2 diabetes mellitus with diabetic neuropathic arthropathy, 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 ; Essential hypertension I10 ; Hypothyroidism (acquired) E03.9 ; Chronic obstructive pulmonary disease, unspecified COPD type J44.9 and Diabetic polyneuropathy associated with type 2 diabetes mellitus E11.42 [place] [address] [id number] [place] [address] 37712- 3495 Sep, Paranoid schizophrenia F20.0 [place] [address] [address] [id number] [place] [address] 61202- 4414 Sep, Paranoid schizophrenia F20.0 and BMI 45.0-49.9, adult Z68.42 [facility] [id number] [place] [address] 71627- 4974 Sep, Schizoaffective disorder, depressive type F25.1 [facility] [id number] [place] [address] 94210- 8772 Sep, [facility] [id number] [place] [address] 40788- 1291 Sep, Paranoid schizophrenia F20.0 [facility] [id number] [place] [address] 98874- 0489 Sep, [facility] [address] 43313- 9166 Sep, Hypothyroidism (acquired) E03.9 [facility] [id number] [place] [address] 29598- 8116 Sep, [facility] [id number] [place] [address] 47854- 2081 August, Schizoaffective disorder, depressive type F25.1 [facility] [id number] [place] [address] 32741- 6324 August, [facility] [id number] [place] [address] 82927- 0191 August, [facility] [id number] [place] [address] 48108- 6904 August, [facility] [address] [id number] [place] [address] 16619- 4194 August, Paranoid schizophrenia F20.0 [facility] [id number] [place] [address] 83796- 0936 August, History of lupus Z87.39 and Chronic pain syndrome G89.4 [facility] [address] [id number] [place] [address] 15648- 3712 August, [facility] [address] [id number] [place] [address] 61036 -2747 August, Seasonal allergic rhinitis, unspecified trigger J30.2 and BMI 45.0-49.9, adult Z68.42 [place] [address] [place] [id number] [place] [address] 38439- 5671 Jul, Schizoaffective disorder, depressive type F25.1 [place] [address] 17735- 8224 Jul, [place] [address] 06344- 3097 Jul, Hypothyroidism (acquired) E03.9 [place] [address] 22220- 1963 11 Jul, 2017 Chronic obstructive pulmonary disease, unspecified COPD type J44.9 and Type 2 diabetes mellitus without complication, without long-term current use of insulin E11.9 [place] [address] 93863- 8440 Jul, Paranoid schizophrenia F20.0 [place] [address] 19765- 1226 Jun, Hypothyroidism (acquired) E03.9 and Seasonal allergic rhinitis due to pollen J30.1 [facility] [address] [id number] [place] [address] 40884 -3971 Jun, Shortness of breath at rest R06.02 ; COPD exacerbation J44.1 and BMI 45.0-49.9, adult Z68.42 [place] [address] [place] [id number] [place] [address] 18594- 0515 Jun, [place] [address] 00756- 0868 Jun, Paranoid schizophrenia F20.0 ; Depression with anxiety F41.8 and BMI 45.0-49.9, adult Z68.42 [place] [address] 56556- 2572 Jun, Schizoaffective disorder, depressive type F25.1 [facility] [address] [place] [address] [id number] Jun, Dental caries K02.9 [facility] [address] [place] [id number]- 8168 Jun, Paranoid schizophrenia F20.0 [facility] [address] [place] [address]2264- 5184 May, Migraine without aura and without status migrainosus, not intractable G43.009 ; DM neuro manif type II E11.49 and Type 2 diabetes mellitus without complication, without long-term current use of insulin E11.9 [facility] [address] [id number] [place] [address]696 May, Migraine without aura and without status migrainosus, not intractable G43.009 [facility] [address] [place] [phone]- 2018 May, Depression with anxiety F41.8 [facility] [address] [place] [id number] [place] [address] [id number] May, [facility] [address] [place] [phone]- 7403 May, [facility] [address] [place] [id number] [place] [address] 33125- 9046 May, [facility] [address] [place] [address] [id number] [place] [phone]05 May, Hypothyroidism (acquired) E03.9 [facility] [address] [place] [id number] [place] [address] 42564- 7969 May, Paranoid schizophrenia F20.0 [facility] [address] [place] [id number]- 8285 May, Type 2 diabetes mellitus without complication, [...] N32.81 and Controlled substance agreement signed Z79.899 [facility] [address] 43134- 0165 May, Controlled substance agreement signed Z79.899 [place] [address] 82514- 6929 Apr, [facility] [address] [id number] Apr, Dental examination Z01.20 [place] [address] 18748- 1986 Apr, Paranoid schizophrenia F20.0 [place] [address] 77477- 3785 Apr, Hypertension, unspecified type I10 [place] [address] 84114- 5140 Apr, Paranoid schizophrenia F20.0 [place] [address] 54668- 1993 Apr, [place] [address] 65639- 7826 Apr, Tobacco abuse Z72.0 [facility] [address] 13563- 3115 Apr, [place] [address] 76383- 4460 Mar, [place] [address] 67328- 7192 27 Mar, 2017 Paranoid schizophrenia F20.0 and BMI 45.0-49.9, adult Z68.42 [facility] [address] [id number] [place] [address] 74948- 3021 15 Mar, 2017 Schizoaffective disorder, depressive type F25.1 [place] [address] [id number] [place] [address] 78348- 1518 14 Mar, 2017 [facility] [address] [place] [id number] [place] [address] 46383- 1248 Mar, Schizoaffective disorder, depressive type F25.1 [place] [address] [place] [id number] [place] [address] 62473- 6418 Mar, Hypothyroidism, unspecified type E03.9 [facility] [address] [id number] [place] [address] 03388 -7486 Feb, Gastroenteritis K52.9 and BMI 45.0-49.9, adult Z68.42 [place] [address] [place] [id number] [place] [address] 11864- 0838 Feb, [place] [address] [place] [id number] [place] [address] 85326- 8250 Feb, [place] [address] [place] [id number] [place] [address] 35381- 0745 Feb, [place] [address] [place] [id number] [place] [address] 70849- 9298 16 Feb, 2017 [facility] [address] [place] [id number] [place] [address] 31404- 4232 10 Feb, 2017 Paranoid schizophrenia F20.0 [facility] [address] [place] [id number] [place] [address] 02471- 6080 06 Feb, 2017 Gastroesophageal reflux disease without esophagitis K21.9 ; Other seasonal allergic rhinitis J30.2 ; Other allergic rhinitis J30.89 ; Tobacco abuse Z72.0 and BMI 40.0-44.9, adult Z68.41 [place] [address] [place] [id number] [place] [address] 47858- 5016 Feb, Onychomycosis B35.1 ; Callus of foot L84 and DM neuro manif type II E11.49 [place] [address] [place] [id number] [place] [address] 83454- 4368 Jan, Chronic allergic rhinitis J30.9 [place] [address] 02506- 2723 16 Jan, 2017 [place] [address] 00489- 5419 Jan, Schizoaffective disorder, depressive type F25.1 [place] [address] 04043- 3935 Jan, [facility] [place] [address] 93765 -3103 Jan, Sore throat J02.9 and Seasonal allergic rhinitis due to other allergic trigger J30.89 [place] [address] 16928- 2279 Jan, [place] [address] 20078- 7985 Jan, [facility] [place] [address] [place] [id number] [place] [address] 05327 -5812 Jan, Chronic allergic rhinitis J30.9 [place] [address] 14386- 3777 Dec, Paranoid schizophrenia F20.0 ; Primary insomnia F51.01 and Schizoaffective disorder, depressive type F25.1 [place] [address] 10526- 4698 Dec, Chronic pain syndrome G89.4 ; Cervicalgia of occipito- atlanto-axial region M54.2 ; Menopausal syndrome (hot flashes) N95.1 and Encounter for immunization Z23 [place] [address] [place] [address] [place] [address]- 4053 14 Dec, 2016 [facility] [address] [id number] [place] [address] 49677- 0780 13 Dec, 2016 [facility] [address] [id number] [place] [address] 91365- 0070 08 Dec, 2016 Paranoid schizophrenia F20.0 [facility] [address] [id number] [place] [address] 08886- 8074 Dec, Schizoaffective disorder, depressive type F25.1 [facility] [address] [id number] [place] [address] 07157- 5887 Nov, Hypothyroidism, unspecified type E03.9 [facility] [address] [id number] [place] [address] 03453 -0686 Nov, Acute seasonal allergic rhinitis due to other allergen J30.89 [facility] [address] [place] [id number] [place] [address] 94517- 6613 Nov, [facility] [address] [place] [id number] [place] [address] 02809- 7089 Nov, Hypothyroidism, unspecified type E03.9 and Other elevated white blood cell (WBC) count D72.828 [place] [address] [place] [id number] [place] [address] 34172- 5498 Nov, Schizoaffective disorder, depressive type F25.1 [facility] [address] [id number] [place] [address] 02026- 4548 Nov, Paranoid schizophrenia F20.0 [facility] [address] [id number] [place] [address] 32761- 1331 Nov, Type 2 diabetes mellitus without complication, without long- term current use of insulin E11.9 ; Morbid obesity due to excess calories E66.01 and Chronic pain syndrome G89.4 [facility] [address] [place] [address] 99634- 6313 Oct, Paranoid schizophrenia F20.0 [place] [address], [place] [address]- 8608 Oct, [place] [address] [place] [id number] [place] [address] 83249- 1216 Oct, Schizoaffective disorder, depressive type F25.1 [place] [address] [place] [id number] [address]- 3331 Oct, Hypothyroidism, unspecified type E03.9 and Other elevated white blood cell (WBC) count D72.828 [place] [address], [place] [address]- 8112 Oct, Morbid obesity due to excess calories E66.01 ; Chronic obstructive pulmonary disease, unspecified COPD type J44.9 ; History of lupus Z87.39 ; Hypothyroidism, unspecified type E03.9 ; Gastroesophageal reflux disease without esophagitis K21.9 ; Primary insomnia F51.01 and Chronic pain syndrome G89.4 [place] [address] [place] [id number] [place] [address] 31966- 9513 Sep, [place] [address] [place] [id number] [place] [address] 93147- 1701 Sep, [place] [address] [place] [id number] [address]- 4537 Sep, [place] [address], [place] [address]- 4518 Sep, Paranoid schizophrenia F20.0 [place] [address], [place] [address]- 2460 Sep, [place] [address] [place] [id number] [place] [address] 58161- 1291 Sep, Paranoid schizophrenia F20.0 [facility] [address] [id number] [address]- 2775 Sep, [place] [address] [place] [address] [id number] [place] [address] 67446- 3908 August, Paranoid schizophrenia F20.0 [facility] [address] [id number] [place] [address] 44328- 4106 Jul, [place] [address] 69723- 9606 Jul, Type 2 diabetes mellitus without complication, without long- term current use of insulin E11.9 ; Morbid obesity due to excess calories E66.01 ; Depression with anxiety F41.8 ; Hypothyroidism, unspecified type E03.9 ; Seasonal allergic rhinitis due to other allergic trigger J30.89 ; Pain, dental K08.89 and Gastroesophageal reflux disease without esophagitis K21.9 [facility] [address] [id number] 12 Jul, 2016 Dental examination Z01.20 [place] [address] 56633- 5979 07 Jul, 2016 Paranoid schizophrenia F20.0 [place] [address] 72232- 7931 13 Jun, 2016 Paranoid schizophrenia F20.0 and Depression with anxiety F41.8 [place] [address] 53791- 8556 Jun, Paranoid schizophrenia F20.0 and Depression with anxiety F41.8 [place] [address] [place] [id number] [place] [address] 08138- 5942 Jun, [place] [address] [place] [id number] [place] [address] 61968- 5304 Jun, [facility] [id number] [place] [address] 80171 -8229 Jun, Seasonal allergic rhinitis due to other allergic trigger J30.[address] [facility] [id number] [place] [address] 55007 -8080 May, Sore throat J02.9 ; Other viral agents as the cause of diseases classified elsewhere B97.89 and Acute upper respiratory infection, unspecified J06.9 [place] [address] [id number] [place] [address] 72539- 1008 08 May, 2016 Paranoid schizophrenia F20.0 and Depression with anxiety F41.8 [place] [address] 39247- 0907 Apr, Other seasonal allergic rhinitis J30.2 [place] [address] 24766- 6416 Apr, Paranoid schizophrenia F20.0 and Depression with anxiety F41.8 [facility] [place] [address] 28502 -5910 Apr, Bronchitis J40 and Sore throat J02.9 [place] [address] 83842- 6731 Apr, Type 2 diabetes mellitus without complication, without long- term current use of insulin E11.9 [facility] [place] [address] 28240 -0084 Apr, Bronchitis J40 [place] [address] 94946- 7465 Apr, [place] [address] 82993- 5678 Apr, [place] [address] 08611- 5718 Mar, Type 2 diabetes mellitus without complication, [...] R60.9 and Other seasonal allergic rhinitis J30.2 [place] [address] 67521- 5043 Mar, Paranoid schizophrenia F20.0 and Depression with anxiety F41.8 [facility] [address] [place] [address] 06095- 6543 Feb, [facility] [id number] [place] [address] 85271- 1016 Feb, [facility] [id number] [place] [address] 33772- 5236 Feb, [facility] [id number] [place] [address] 16904- 5103 Feb, [facility] [id number] [place] [address] 50848- 0102 Feb, Type 2 diabetes mellitus without complication, without long- term current use of insulin E11.9 ; ARIAS on CPAP G47.33 and Preoperative evaluation to rule out surgical contraindication Z01.818 [place] [address] [id number] [place] [address] 67418- 1978 Feb, Paranoid schizophrenia F20.0 and Depression with anxiety F41.8 [place] [address] [id number] [place] [address] 18802- 9013 Jan, [place] [address] [id number] [place] [address] 55518- 8482 Jan, Paranoid schizophrenia F20.0 and Depression with anxiety F41.8 [facility] [id number] [place] [address] 72861- 4633 17 Jan, 2016 [facility] [id number] [place] [address] 24505- 2049 14 Jan, 2016 Muscle strain T14.8 [facility] [id number] [place] [address] 52012- 0388 10 Jan, 2016 Paranoid schizophrenia F20.0 [facility] [id number] [place] [address] 22089- 5535 07 Jan, 2016 [facility] [id number] [place] [address] 80523- 2927 Jan, Paranoid schizophrenia F20.0 and Depression with anxiety F41.8 [facility] [address] [address]- 4073 Jan, [facility] [address] [address]- 6511 Jan, [facility] [address] [place] [address] 82725- 6495 Dec, [facility] [id number] [place] [address] 16022- 0973 Dec, Paranoid schizophrenia F20.0 [facility] [address] [place] [address] 64854- 8581 16 Dec, 2015 Paranoid schizophrenia F20.0 and Depression with anxiety F41.8 [facility] [id number] [place] [address] [phone]- [phone] Nov, [facility] [id number] [place] [address] 51293- 3854 Nov, Paranoid schizophrenia F20.0 [facility] [id number] [place] [address] 73441- 7303 Nov, Paranoid schizophrenia F20.0 and Depression with anxiety F41.8 [facility] [id number] [address] Nov, Type 2 diabetes mellitus without complication, without long- term current use of insulin E11.9 ; Paranoid schizophrenia F20.0 ; Chronic obstructive pulmonary disease, unspecified COPD type J44.9 ; Morbid obesity due to excess calories E66.01 and Parkinsonian tremor G20 [facility] [id number] [address] Nov, [facility] [id number], [place] [address] Oct, Paranoid schizophrenia F20.0 [facility] [id number] [place] [address] 39434- 1181 Oct, Paranoid schizophrenia F20.0 [facility] [id number] [place] [address] [id number]- 5055 Oct, Paranoid schizophrenia F20.0 and Depression with anxiety F41.8 [facility] [id number] [place] [address] [phone]- 8290 Oct, [facility] [address] [address] Oct, Paranoid schizophrenia F20.0 and Depression with anxiety F41.8 [place] [address] [place] [id number] [place] [address]10- 0981 Oct, Nasal sore J34.89 [place] [address] [address] [id number] [place] [address] 26302- 8971 Oct, Type 2 diabetes mellitus without complication, without long- term current use of insulin E11.9 ; Depression with anxiety F41.8 ; Hypothyroidism, unspecified type E03.9 and History of lupus Z87.39 [place] [address] [address]- 7697 Oct, [place] [address] [id number] [place] [address] 68235- 3891 Oct, Type 2 diabetes mellitus without complication, [...] edema R60.9 and History of lupus Z87.39 [place] [address] [id number] [place] [address] 62292- 5545 Feb, [facility] [address] [id number] [place] [address] Jan, [facility] [address] [facility] [id number] [place] [address] Jan, [facility] [address] [facility] [id number] [place] [address]- 4292 Jan, [facility] [address] [facility] [id number] [place] [address]- 2463 Dec, [facility] [address] [facility] [id number] [place] [address]- 0165 Nov, [facility] [address] [facility] [id number] [place] [address]- 3270 Nov, [facility] [address] [id number] [place] [address] 7598 Oct, [facility] [address] [id number] [place] [address] 6304 Oct, [facility] [address] [id number] [place] [address]- 4616 Oct, [facility] [id number] [address] Sep, Allergic rhinitis 477.9 [facility] [address] [id number] [place] [address] 5108 Sep, Rhinitis, allergic 477.9 [facility] [address] [facility] [id number], [place] [address] 4947 Sep, Rhinitis, allergic 477.9 [facility] [address] [facility] [id number] [place] [address] Sep, [facility] [address] [facility] [id number] [place] [address] August, [facility] [address] [id number] [address] August, [facility] [place] [facility] [address] [id number] [place] [address]- 4133 August, [facility] [place] [facility] [address] [id number] [place] [address]- 8984 Jul, [facility] [place] [facility] [address] [id number] [place] [address]- 8448 Jul, [facility] [place] [facility] [address] [id number] [place] [address]- 0575 Jul, [facility] [place] [facility] [address] [id number] [place] [address]- 4825 Jun, [facility] [place] [facility] [address] [id number] [place] [address]- 1340 Jun, [facility] [place] [facility] [address] [id number] [place] [address]- 1169 Jun, [facility] [place] [facility] [address] [id number] [place] [address]- 6251 Jun, [facility] [place] [facility] [address] [id number] [place] [address]- 1252 Jun, [facility] [place] [facility] [address] [id number] [place] [address]- 5106 Jun, [facility] [place] [facility] [address] [id number] [place] [address]- 2299 Jun, [facility] [place] [facility] [address] [id number] [place] [address]- 4503 Jun, [facility] [place] [facility] [address] [id number] [place] [address] May, [facility] [place] [facility] [address] [id number] [place] [address]- 7567 May, [facility] [place] [facility] [address] [id number] [place] [address]- 4749 May, [facility] [place] [facility] [address] [id number], [place] [address]- 5338 May, [facility] [place] [facility] [address] [id number] [place] [address]- 2401 Apr, [facility] [place] [facility] [address] [id number] [place] [address]- 0655 Mar, [facility] [place] [facility] [address] [facility] [id number] [place] [address]- 7731 Mar, [facility] [place] [facility] [address] [id number] [place] [address]- 0162 Mar, [facility] [place] [facility] [address] [id number] [place] [address]- 2840 Mar, [facility] [place] [facility] [address] [id number] [place] [address]- 0155 Mar, [facility] [place] [facility] [address] [facility] [id number] [place] [address]- 7297 Mar, [facility] [place] [facility] [address] [id number] [place] [address]- 0178 Mar, [facility] [place] [facility] [address] [facility] [id number] [place] [address]- 6044 Mar, [facility] [place] [facility] [address] [facility] [id number] [place] [address]- 6493 Mar, [facility] [place] [facility] [address] [id number] [place] [address]- 6870 Feb, [facility] [place] [facility] [address] [id number], [place] [address]- 3572 Feb, [facility] [place] [facility] [address] [id number] [place] [address]- 8156 Feb, [facility] [place] [facility] [address] [facility] [id number] [place] [address]- 2885 Feb, [facility] [place] [facility] [address] [facility] [id number] [place] [address]- 2653 14 Feb, 2014 [facility] [place] [facility] [address] [id number] [place] [address]- 6793 14 Feb, 2014 [facility] [place] [facility] [address] [id number] [place] [address]- 6865 12 Feb, 2014 [facility] [place] [facility] [address] [id number] [place] [address]- 2616 12 Feb, 2014 [facility] [place] [facility] [address] [id number] [place] [address]- 1200 23 Jan, 2014 [facility] [place] [facility] [address] [id number] [place] [address]- 4945 23 Jan, 2014 [facility] [place] [facility] [address] [id number] [place] [address]- 4237 16 Jan, 2014 [facility] [place] [facility] [address] [id number] [place] [address]- 1935 16 Jan, 2014 [facility] [place] [facility] [address] [id number] [place] [address]- 8491 15 Jan, 2014 [facility] [place] [facility] [address] [id number] [place] [address]- 1010 15 Jan, 2014 [facility] [place] [facility] [address] [id number] [place] [address]- 0290 14 Jan, 2014 [facility] [place] [facility] [address] [id number] [place] [address]- 0436 14 Jan, 2014 [facility] [place] [facility] [address] [id number] [place] [address]- 1017 14 Jan, 2014 [facility] [place] [facility] [address] [id number] [place] [address]- 5520 14 Jan, 2014 [facility] [place] [facility] [address] [id number] [place] [address]- 8204 18 Dec, 2013 [facility] [place] [facility] [address] [id number] [place] [address]- 0932 18 Dec, 2013 [facility] [place] [facility] [address] [id number] [place] [address]- 2668 Dec, [facility] [place] [facility] [address] [id number] [place] [address]- 8439 Dec, [facility] [place] [facility] [address] [id number] [place] [address]- 7790 Nov, [facility] [place] [facility] [address] [id number] [place] [address]- 6106 Nov, [facility] [place] [facility] [address] [id number] [place] [address]- 1392 Nov, [facility] [place] [facility] [address] [id number] [place] [address]- 2443 Nov, [facility] [place] [facility] [address] [id number] [place] [address]- 4009 Nov, [facility] [place] [facility] [address] [id number] [place] [address]- 5452 Oct, [facility] [place] [facility] [address] [id number] [place] [address]- 8112 Oct, [facility] [place] [facility] [address] [id number] [place] [address]- 2677 Oct, [facility] [place] [facility] [address] [id number] [place] [address]- 8153 Oct, [facility] [place] [facility] [address] [id number] [place] [address]- 0359 Sep, [facility] [place] [facility] [address] [id number] [place] [address]- 7491 Sep, [facility] [place] [facility] [address] [id number] [place] [address]- 5983 Sep, [facility] [place] [facility] [address] [id number] [place] [address]- 3302 Sep, [facility] [place] [facility] [address] [id number] [place] [address]- 9995 Sep, [facility] [place] [facility] [address] [id number] [place] [address]- 6827 Sep, [facility] [place] [facility] [address] [id number] [place] [address]- 8681 Sep, [facility] [place] [facility] [address] [id number] [place] [address]- 0179 Sep, [facility] [place] [facility] [address] [id number] [place] [address]- 0127 August, [facility] [place] [facility] [address] [id number] [place] [address]- 3632 August, [facility] [place] [facility] [address] [id number] [place] [address]- 0752 August, [facility] [place] [facility] [address] [id number] [place] [address]- 3040 August, [facility] [place] [facility] [address] [id number] [place] [address]- 9570 August, [facility] [place] [facility] [address] [id number] [place] [address]- 5968 August, [facility] [place] [facility] [address] [id number] [place] [address]- 7272 August, [facility] [place] [facility] [address] [id number] [place] [address]- 7083 Jul, [facility] [place] [facility] [address] [id number] [place] [address]- 0381 Jul, [facility] [place] [facility] [address] [id number] [place] [address]- 5880 Jul, [facility] [place] [facility] [address] [id number] [place] [address]- 7465 Jul, [facility] [place] [facility] [address] [id number] [place] [address]- 4658 Jul, [facility] [place] [facility] [address] [id number] [place] [address]- 3965 Jul, [facility] [place] [facility] [address] [id number] [place] [address]- 1223 Jul, [facility] [place] [facility] [address] [id number] [place] [address]- 3979 Jul, [facility] [place] [facility] [address] [id number] [place] [address]- 6973 Jul, [facility] [place] [facility] [address] [id number] [place] [address]- 9052 Jul, [facility] [place] [facility] [address] [id number] [place] [address]- 4267 Jul, [facility] [place] [facility] [address] [id number] [place] [address]- 8945 Jul, [facility] [place] [facility] [address] [id number] [place] [address]- 7331 Jun, [facility] [place] [facility] [address] [id number] [place] [address]- 7795 Jun, [facility] [place] [facility] [address] [id number] [place] [address]- 2924 Jun, [facility] [place] [facility] [address] [id number] [place] [address]- 0014 Jun, [facility] [place] [facility] [address] [id number] [place] [address]- 4155 Jun, [facility] [place] [facility] [address] [id number] [place] [address]- 6508 May, [facility] [place] [facility] [address] [id number] [place] [address]- 6657 May, [facility] [place] [facility] [address] [id number] [place] [address]- 2104 May, [facility] [place] [facility] [address] [id number] [place] [address]- 5187 May, [facility] [place] [facility] [address] [id number] [place] [address]- 8127 May, 2013 [facility] [place] [facility] [address] [id number] [place] [address]- 6991 May, 2013 [facility] [place] [facility] [address] [id number] [place] [address]- 7175 May, 2013 [facility] [place] [facility] [address] [facility] [id number] [place] [address]- 7978 May, 2013 [facility] [place] [facility] [address] [id number] [place] [address]- 1673 Mar, [facility] [place] [facility] [address] [id number] [place] [address]- 0620 Mar, [facility] [place] [facility] [address] [facility] [id number] [place] [address]- 2952 Mar, [facility] [place] [facility] [address] [facility] [id number] [place] [address]- 1337 Mar, [facility] [place] [facility] [address] [facility] [id number] [place] [address]- 7127 Mar, [facility] [place] [facility] [address] [facility] [id number] [place] [address]- 1636 Mar, [facility] [place] [facility] [address] [facility] [id number] [place] [address]- 0961 Feb, [facility] [place] [facility] [address] [facility] [id number] [place] [address]- 4153 Feb, [facility] [place] [facility] [address] [id number], [place] [address]- 0937 Jan, [facility] [place] [facility] [address] [id number] [place] [address]- 5079 Jan, [facility] [place] [facility] [address] [facility] [id number] [place] [address]- 1374 Jan, [facility] [place] [facility] [address] [facility] [id number], [place] [address]- 2163 Jan, [facility] [place] [facility] [address] [id number] [place] [address]- 1711 Jan, [facility] [place] [facility] [address] [id number] [place] [address]- 9360 Jan, [facility] [place] [facility] [address] [id number] [place] [address]- 1705 Jan, [facility] [place] [facility] [address] [id number] [place] [address]- 2058 Jan, [facility] [place] [facility] [address] [id number] [place] [address]- 4882 Jan, [facility] [place] [facility] [address] [id number] [place] [address]- 9544 Jan, [facility] [place] [facility] [address] [id number] [place] [address]- 2293 Dec, [facility] [place] [facility] [address] [id number] [place] [address]- 8698 Nov, [facility] [place] [facility] [address] [id number] [place] [address]- 9541 Nov, [facility] [place] [facility] [address] [id number] [place] [address]- 5143 Nov, [facility] [place] [facility] [address] [id number] [place] [address]- 5410 Oct, [facility] [place] [facility] [address] [id number] [place] [address]- 6243 Oct, [facility] [place] [facility] [address] [id number] [place] [address]- 9402 August, [facility] [place] [facility] [address] [id number] [place] [address]- 9896 Apr, [facility] [place] [facility] [address] [id number] [place] [address]- 0629 Apr, [facility] [place] [facility] [address] [id number], [place] [address]- 0916 Feb, [facility] [address] [facility] [id number], [place] [address]- 2478 Feb, [facility] [address] [id number] [address]- 5876 Dec, [facility] [address] [id number] [address]- 4870 Dec, [facility] [address] [id number] [address]- 4480 Oct, [facility] [address] [id number] [address]- 0477 Oct, [facility] [address] [id number] [address]- 3383 Oct, [facility] [address] [id number] [address]- 6766 Jul, IMMUNIZATIONS No Known Immunizations SOCIAL HISTORY Never Assessed REASON FOR VISIT voices PLAN OF CARE VITAL SIGNS MEDICATIONS Unknown [...] for psychosis/mental illness , last one in [place] at [facility] 4 years ago
--- OUTSIDE RECORDS SUMMARY | 2018-09-02 13:40 | XMS REPORT ---
Author Author EDWINUMESH CASIANO Organization [facility] [address] Address [address] [place] [address] Care Team Providers Care Irs Agent Name Role Phone UMESH PINEDA Unavailable PROBLEMS Type Condition ICD9-CM Code [id number] Code Onset Dates Condition Status SNOMED Code Problem OAB (overactive bladder) N32.81 Active 872614822 Problem Depression with anxiety F41.8 Active 760291664 Problem Other seasonal allergic rhinitis J30.2 Active 119837179 Problem Chronic obstructive pulmonary disease, unspecified COPD type J44.9 Active 59016459 Problem Tobacco abuse Z72.0 Active 931156544 Problem Morbid obesity due to excess calories E66.01 Active 728387066 Problem Dyslipidemia E78.5 Active 061113357 Problem Hypothyroidism (acquired) E03.9 Active 909197664 Problem Essential hypertension I10 Active 25852171 Problem Diabetic polyneuropathy associated with type 2 diabetes mellitus E11.42 Active 040440666 Problem Type 2 diabetes mellitus with diabetic neuropathic arthropathy, 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 Active 699707340 Problem Type 2 diabetes mellitus without complication, without long-term current use of insulin E11.9 Active 475978754 Problem Paranoid schizophrenia F20.0 Active 23683435 Problem Chronic pain syndrome G89.4 Active 106358873 Problem Migraine without aura and without status migrainosus, not intractable G43.009 Active 349679142 Problem Gastroesophageal reflux disease, esophagitis presence not specified K21.9 Active 609508069 Problem Seasonal allergic rhinitis due to pollen J30.1 Active 71325269 Problem COPD exacerbation J44.1 Active 318068807 Problem Seasonal allergic rhinitis due to other allergic trigger J30.89 Active 261479602 Problem Schizoaffective disorder, depressive type F25.1 Active 44668252 Problem History of lupus Z87.39 Active 421847199 Problem Gastroesophageal reflux disease without esophagitis K21.9 Active 618696903 Problem Menopausal syndrome (hot flashes) N95.1 Active 378431931 Problem Other allergic rhinitis J30.89 Active 119201754 Problem Primary insomnia F51.01 Active 5870596 Problem DM neuro manif type II E11.49 Active 42076009 ALLERGIES No Information ENCOUNTERS Encounter Location Date Diagnosis [place] [address] [address] Dec, [place] [address] [place] [id number] [place] [address] 76179- 2949 Dec, [place] [address] [id number] [place] [address] 07592- 2074 Nov, [place] [address] [id number] [place] [address] 12365- 3489 Nov, [place] [address] [id number] [place] [address] 12642- 4077 Nov, Schizoaffective disorder, depressive type F25.1 [place] [address], [place] [address] Nov, Well woman exam Z01.419 ; BMI 45.0-49.9, adult Z68.42 ; Screening breast examination Z12.31 and Dietary counseling and surveillance Z71.3 [place] [address] [place] [address] 32610- 4956 Nov, Paranoid schizophrenia F20.0 [place] [address], [place] [address] Nov, Gastroesophageal reflux disease, esophagitis presence not specified K21.9 [place] [address], [place] [address] Oct, Paranoid schizophrenia F20.0 [facility] [address] [id number] [address] Oct Chronic pain syndrome G89.4 and Schizoaffective disorder, depressive type F25.1 [place] [address], [place] [address] Oct, Chronic pain syndrome G89.4 and Schizoaffective disorder, depressive type F25.1 [place] [address] 7[address]27- 8537 16 Oct, 2017 Type 2 diabetes mellitus without complication, without long- term current use of insulin E11.9 [place] [address] 07444- 6017 12 Oct, 2017 Essential hypertension I10 and DM neuro manif type II E11.49 [place] [address] 39266- 6505 Oct, [place] [address] 03186- 2409 Oct, Schizoaffective disorder, depressive type F25.1 and BMI 45.0 -49.9, adult Z68.42 [place] [address] 72672- 1562 Oct, [place] [address] 24556- 1745 Oct, Paranoid schizophrenia F20.0 [place] [address] 9[address]32- 5033 Oct, Type 2 diabetes mellitus with diabetic neuropathic arthropathy, 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 ; Essential hypertension I10 ; Hypothyroidism (acquired) E03.9 ; Chronic obstructive pulmonary disease, unspecified COPD type J44.9 and Diabetic polyneuropathy associated with type 2 diabetes mellitus E11.42 [place] [address] [place] [id number] [place] [address] 37473- 0500 Sep, Paranoid schizophrenia F20.[address] [address]- 1603 Sep, Paranoid schizophrenia F20.0 and BMI 45.0-49.9, adult Z68.42 [place] [address] 92505- 4086 Sep, Schizoaffective disorder, depressive type F25.1 [facility] [address] [place] [id number] [place] [address] 23593- 6535 Sep, [facility] [id number] [place] [address] 27301- 3018 Sep, Paranoid schizophrenia F20.0 [facility] [address] 88482- 5299 Sep, [facility] [address] [id number] [place] [address] 95254- 0256 Sep, Hypothyroidism (acquired) E03.9 [facility] [address] 57605- 8948 Sep, [facility] [address] [place] [id number] [place] [address] 98934- 9807 August, Schizoaffective disorder, depressive type F25.1 [facility] [id number] [place] [address] 42383- 0489 August, [facility] [id number] [place] [address] 13947- 3709 August, [facility] [id number] [place] [address] 37136- 2243 August, [facility] [id number] [place] [address] 50704- 5096 August, Paranoid schizophrenia F20.0 [facility] [id number] [place] [address] 54278- 3821 August, History of lupus Z87.39 and Chronic pain syndrome G89.4 [facility] [id number] [place] [address] 21918- 6735 August, [facility] [id number] [place] [address] 29931 -7853 August, Seasonal allergic rhinitis, unspecified trigger J30.2 and BMI 45.0-49.9, adult Z68.42 [facility] [id number] [place] [address] 19014- 2816 Jul, Schizoaffective disorder, depressive type F25.1 [facility] [id number] [place] [address] 40902- 2451 19 Jul, 2017 [facility] [id number] [place] [address] 14265- 2595 13 Jul, 2017 Hypothyroidism (acquired) E03.9 [facility] [address] [place] [id number] [place] [address] 06650- 3272 11 Jul, 2017 Chronic obstructive pulmonary disease, unspecified COPD type J44.9 and Type 2 diabetes mellitus without complication, without long-term current use of insulin E11.9 [place] [address] [place] [id number] [place] [address] 19350- 5573 10 Jul, 2017 Paranoid schizophrenia F20.0 [place] [address] 82047- 3059 Jun, Hypothyroidism (acquired) E03.9 and Seasonal allergic rhinitis due to pollen J30.1 [facility] [address] [address] -5284 Jun, Shortness of breath at rest R06.02 ; COPD exacerbation J44.1 and BMI 45.0-49.9, adult Z68.42 [facility] [address] [id number] [place] [address] 29671- 9341 Jun, [facility] [address] [id number] [place] [address] 05669- 1283 Jun, Paranoid schizophrenia F20.0 ; Depression with anxiety F41.8 and BMI 45.0-49.9, adult Z68.42 [facility] [id number] [place] [address] 73997- 0740 Jun, Schizoaffective disorder, depressive type F25.1 [facility] [id number] [place] [address] [id number] Jun, Dental caries K02.9 [facility] [id number] [place] [address] 65827- 7063 Jun, Paranoid schizophrenia F20.0 [facility] [address] [id number] [place] [id number] May, Migraine without aura and without status migrainosus, not intractable G43.009 ; DM neuro manif type II E11.49 and Type 2 diabetes mellitus without complication, without long-term current use of insulin E11.9 [facility] [address] [id number] [place] [address] 58477- 5240 May, Migraine without aura and without status migrainosus, not intractable G43.009 [facility] [id number] [place] [address] 79435- 4851 May, Depression with anxiety F41.8 [facility] [id number] [place] [address] [id number] May, [facility] [id number] [place] [address] 85526- 8634 May, [facility] [address] [id number] [place] [address] 20860- 9400 May, [facility] [id number] [place] [address] 31702- 5286 May, Hypothyroidism (acquired) E03.9 [facility] [id number] [place] [address] May, Paranoid schizophrenia F20.0 [facility] [id number] [place] [address] 24379- 8573 May, Type 2 diabetes mellitus without complication, [...] N32.81 and Controlled substance agreement signed Z79.899 [facility] [address] 59507- 6659 May, Controlled substance agreement signed Z79.899 [facility] [address] 79870- 8853 Apr, [facility] [address] [id number] Apr, Dental examination Z01.20 [facility] [address] 01806- 5295 Apr, Paranoid schizophrenia F20.0 [facility] [address] 41397- 2967 Apr, Hypertension, unspecified type I10 [facility] [address] 71295- 4679 Apr, Paranoid schizophrenia F20.0 [facility] [address] 41104- 7952 Apr, [facility] [address] 52599- 8199 Apr, Tobacco abuse Z72.0 [facility] [address] [place] [id number] [place] [address] 85482- 1509 Apr, [facility] [address] 50153- 7871 Mar, [facility] [address] 98463- 0380 Mar, Paranoid schizophrenia F20.0 and BMI 45.0-49.9, adult Z68.42 [facility] [id number] [place] [address] 79505- 1062 15 Mar, 2017 Schizoaffective disorder, depressive type F25.1 [facility] [address] [place] [id number] [place] [address] 01515- 5002 14 Mar, 2017 [facility] [address] [place] [id number] [place] [address] 42613- 7428 12 Mar, 2017 Hypothyroidism, unspecified type E03.9 [facility] [address] [id number] [place] [address] 59666- 1238 12 Mar, 2017 Schizoaffective disorder, depressive type F25.1 [facility] [address] [id number] [place] [address] 90054 -5821 25 Feb, 2017 Gastroenteritis K52.9 and BMI 45.0-49.9, adult Z68.42 [place] [address] [place] [id number] [place] [address] 73109- 3262 22 Feb, 2017 [facility] [address] [place] [id number] [place] [address] 59572- 3469 Feb, [place] [address] [place] [id number] [place] [address] 25719- 6294 20 Feb, 2017 [place] [address] [place] [id number] [place] [address] 30709- 6445 16 Feb, 2017 [place] [address] [place] [id number] [place] [address] 54237- 8358 10 Feb, 2017 Paranoid schizophrenia F20.0 [place] [address] [place] [id number] [place] [address] 83730- 9690 06 Feb, 2017 Gastroesophageal reflux disease without esophagitis K21.9 ; Other seasonal allergic rhinitis J30.2 ; Other allergic rhinitis J30.89 ; Tobacco abuse Z72.0 and BMI 40.0-44.9, adult Z68.41 [facility] [address] [place] [id number] [place] [address] 22608- 9421 03 Nov, 2017 Onychomycosis B35.1 ; Callus of foot L84 and DM neuro manif type II E11.49 [place] [address] [place] [id number] [place] [address] 24022- 0552 31 Jan, 2017 Chronic allergic rhinitis J30.9 [facility] [address] [place] [id number] [place] [address] 65812- 6597 16 Jan, 2017 [place] [address] 15410- 6616 Jan, Schizoaffective disorder, depressive type F25.1 [place] [address] 66119- 2805 10 Jan, 2017 [facility] [address] 69959 -6486 07 Jan, 2017 Sore throat J02.9 and Seasonal allergic rhinitis due to other allergic trigger J30.89 [place] [address] 59945- 0928 Jan, [place] [address] 29402- 4463 Jan, [facility] [address] [place] [id number] [place] [address] 97615 -2821 Jan, Chronic allergic rhinitis J30.9 [place] [address] [place] [id number] [place] [address] 42044- 6190 27 Dec, 2016 Paranoid schizophrenia F20.0 ; Primary insomnia F51.01 and Schizoaffective disorder, depressive type F25.1 [place] [address] [place] [id number] [place] [address] 27155- 6096 21 Dec, 2016 Chronic pain syndrome G89.4 ; Cervicalgia of occipito- atlanto-axial region M54.2 ; Menopausal syndrome (hot flashes) N95.1 and Encounter for immunization Z23 [place] [address] [place] [id number] [place] [address] 90114- 8451 14 Dec, 2016 [place] [address] [place] [address] [place] [address]- 1582 13 Dec, 2016 [facility] [address] [id number] [place] [address] 06400- 7046 08 Dec, 2016 Paranoid schizophrenia F20.0 [facility] [id number] [place] [address] 27702- 0211 Dec, Schizoaffective disorder, depressive type F25.1 [facility] [address] 49612- 6714 Nov, Hypothyroidism, unspecified type E03.9 [facility] [id number] [place] [address] 94294 -4627 Nov, Acute seasonal allergic rhinitis due to other allergen J30.89 [place] [address] [place] [id number] [place] [address] 30734- 6548 Nov, [place] [address] 24705- 1283 Nov, Hypothyroidism, unspecified type E03.9 and Other elevated white blood cell (WBC) count D72.828 [place] [address] [place] [id number] [place] [address] 61473- 7407 Nov, Schizoaffective disorder, depressive type F25.1 [place] [address] [place] [id number] [place] [address] 44145- 4696 Nov, Paranoid schizophrenia F20.0 [facility] [address] [place] [id number] [place] [address] 95307- 8003 Nov, Type 2 diabetes mellitus without complication, without long- term current use of insulin E11.9 ; Morbid obesity due to excess calories E66.01 and Chronic pain syndrome G89.4 [facility] [address] [place] [id number] [place] [address] 72240- 5680 Oct, Paranoid schizophrenia F20.0 [place] [address] [place] [id number] [place] [address] 01334- 3261 Oct, [place] [address] [place] [address] 86648- 3516 Oct, Schizoaffective disorder, depressive type F25.1 [place] [address] [place] [id number] [place] [address] 84079- 6346 Oct, Hypothyroidism, unspecified type E03.9 and Other elevated white blood cell (WBC) count D72.828 [place] [address] [place] [id number] [place] [address] 84458- 5612 Oct, Morbid obesity due to excess calories E66.01 ; Chronic obstructive pulmonary disease, unspecified COPD type J44.9 ; History of lupus Z87.39 ; Hypothyroidism, unspecified type E03.9 ; Gastroesophageal reflux disease without esophagitis K21.9 ; Primary insomnia F51.01 and Chronic pain syndrome G89.4 [place] [address] [place] [id number] [place] [address] 51627- 0093 Sep, [place] [address] [place] [id number] [place] [address] 01102- 9004 Sep, [place] [address] [place] [id number] [place] [address] 59249- 5723 Sep, [place] [address] [place] [id number] [place] [address] 39507- 0185 Sep, Paranoid schizophrenia F20.0 [facility] [address] [place] [id number] [place] [address] 46982- 4751 Sep, [facility] [address] [place] [id number] [place] [address] 77129- 2209 Sep, Paranoid schizophrenia F20.0 [facility] [address] [place] [id number] [place] [address] 32619- 9142 Sep, [facility] [address] [place] [id number] [place] [address] 01065- 1740 August, Paranoid schizophrenia F20.0 [facility] [id number] [place] [address] 17738- 7902 27 Jul, 2016 [place] [address] [place] [address] [id number] [place] [address] 07778- 1265 18 Jul, 2017 Type 2 diabetes mellitus without complication, without long- term current use of insulin E11.9 ; Morbid obesity due to excess calories E66.01 ; Depression with anxiety F41.8 ; Hypothyroidism, unspecified type E03.9 ; Seasonal allergic rhinitis due to other allergic trigger J30.89 ; Pain, dental K08.89 and Gastroesophageal reflux disease without esophagitis K21.9 [facility] [id number] [place] [address] [id number] 12 Jul, 2016 Dental examination Z01.20 [place] [address] 59150- 1339 07 Jul, 2016 Paranoid schizophrenia F20.0 [place] [address] 27458- 2338 13 Jun, 2016 Paranoid schizophrenia F20.0 and Depression with anxiety F41.8 [place] [address] [place] [id number] [place] [address] 00964- 8555 10 Jun, 2016 Paranoid schizophrenia F20.0 and Depression with anxiety F41.8 [place] [address] [place] [id number] [place] [address] 34872- 7194 09 Jun, 2016 [place] [address] [id number] [place] [address] 11539- 6338 Jun, [facility] [place] [address] [place] [id number] [place] [address] 61753 -6274 Jun, Seasonal allergic rhinitis due to other allergic trigger J30.89 [facility] [address] [id number] [place] [address] 25043 -4260 May, Sore throat J02.9 ; Other viral agents as the cause of diseases classified elsewhere B97.89 and Acute upper respiratory infection, unspecified J06.9 [place] [id number] [place] [address] 65287- 9266 May, Paranoid schizophrenia F20.0 and Depression with anxiety F41.8 [place] [id number] [place] [address] 72176- 2093 Apr, Other seasonal allergic rhinitis J30.2 [place] [address] 23246- 8836 Apr, Paranoid schizophrenia F20.0 and Depression with anxiety F41.8 [facility] [address] 75323 -5082 Apr, Bronchitis J40 and Sore throat J02.9 [place] [address] 02552- 6165 Apr, Type 2 diabetes mellitus without complication, without long- term current use of insulin E11.9 [facility] [place] [address] 94156 -3613 Apr, Bronchitis J40 [place] [address] 02339- 7182 Apr, [place] [address] 39754- 2083 Apr, [place] [address] 04763- 7020 Mar, Type 2 diabetes mellitus without complication, [...] R60.9 and Other seasonal allergic rhinitis J30.2 [place] [id number] [place] [address] 35673- 2025 09 Mar, 2016 Paranoid schizophrenia F20.0 and Depression with anxiety F41.8 [place] [address] [place] [address]- 7974 30 Feb, 2016 [facility] [address] [address]- 1206 Feb, [facility] [id number] [place] [address] 10157- 8090 Feb, [facility] [id number] [place] [address] 26613- 9992 Feb, [facility] [id number] [place] [address] 08199- 9286 14 Feb, 2016 Type 2 diabetes mellitus without complication, without long- term current use of insulin E11.9 ; ARIAS on CPAP G47.33 and Preoperative evaluation to rule out surgical contraindication Z01.818 [facility] [address] [place] [address] 03166- 0778 09 Feb, 2016 Paranoid schizophrenia F20.0 and Depression with anxiety F41.8 [facility] [id number] [place] [address] 16666- 2178 18 Jan, 2016 [facility] [id number] [place] [address] 33490- 4024 18 Jan, 2016 Paranoid schizophrenia F20.0 and Depression with anxiety F41.8 [facility] [id number] [place] [address] 97173- 8615 17 Jan, 2016 [facility] [address] [place] [address] 38140- 0954 14 Jan, 2016 Muscle strain T14.8 [facility] [address] [address]- 1047 10 Jan, 2016 Paranoid schizophrenia F20.0 [facility] [id number] [place] [address] 34989- 7743 07 Jan, 2016 [facility] [address] [address]- 8628 05 Jan, 2016 Paranoid schizophrenia F20.0 and Depression with anxiety F41.8 [facility] [address], [place] [address]- 7812 05 Jan, 2016 [facility] [id number] [place] [address] 51596- 7669 Jan, [facility] [address] [address]- 5356 Dec, [facility] [id number] [place] [address] 88730- 5651 Dec, Paranoid schizophrenia F20.0 [facility] [id number] [place] [address] [id number] 16 Dec, 2015 Paranoid schizophrenia F20.0 and Depression with anxiety F41.8 [facility] [id number] [place] [phone]- [phone] Nov, [facility] [id number] [place] [address] [phone]- [phone] Nov, Paranoid schizophrenia F20.0 [facility] [id number] [place] [phone]- [phone] Nov, Paranoid schizophrenia F20.0 and Depression with anxiety F41.8 [facility] [id number], [place] [address] Nov, Type 2 diabetes mellitus without complication, without long- term current use of insulin E11.9 ; Paranoid schizophrenia F20.0 ; Chronic obstructive pulmonary disease, unspecified COPD type J44.9 ; Morbid obesity due to excess calories E66.01 and Parkinsonian tremor G20 [facility] [id number] [address] Nov, [facility] [id number] [place] [address]- 4826 Oct, Paranoid schizophrenia F20.0 [facility] [id number], [place] [address] Oct, Paranoid schizophrenia F20.0 [place] [id number], [place] [address] Oct, Paranoid schizophrenia F20.0 and Depression with anxiety F41.8 [place] [address] [place] [id number] [place] [address] 76871- 2222 Oct, [facility] [address] [place] [id number] [place] [address] 32238- 4147 Oct, Paranoid schizophrenia F20.0 and Depression with anxiety F41.8 [facility] [address] [id number] [place] [address] 62729- 9384 Oct, Nasal sore J34.89 [facility] [place] [address] [id number] [place] [address] 64827- 7010 Oct, Type 2 diabetes mellitus without complication, without long- term current use of insulin E11.9 ; Depression with anxiety F41.8 ; Hypothyroidism, unspecified type E03.9 and History of lupus Z87.39 [facility] [address] [place] [id number] [place] [address] 98007- 9919 Oct, [place] [address] [place] [id number] [place] [address] 38890- 1510 Oct, Type 2 diabetes mellitus without complication, [...] edema R60.9 and History of lupus Z87.39 [place] [id number] [place] [address] 39496- 8384 Feb, [place] [address] [place] [id number] [place] [address] 97385- 8756 14 Jan, 2015 [facility] [address] [id number] [place] [address] 6890 Jan, [facility] [address] [facility] [id number] [place] [address]- 5408 Jan, [facility] [address] [facility] [id number] [place] [address]- 3578 Dec, [facility] [address] [facility] [id number] [place] [address]- 3662 Nov, [facility] [address] [facility] [id number] [place] [address]- 5310 Nov, [facility] [id number] [place] [address] 4727 Oct, [facility] [id number] [place] [address] 7298 Oct, [facility] [id number], [place] [address] 12[address] Oct, [facility] [id number] [place] [address]- 6173 Sep, Allergic rhinitis 477.9 [facility] [id number] [address] 0291 Sep, Rhinitis, allergic 477.9 [facility] [id number] [address] 2526 Sep, Rhinitis, allergic 477.9 [facility] [id number] [address]- 5398 Sep, [facility] [id number] 4877 August, [facility] [address] [facility] [id number] [address] August, [facility] [id number] [address]39 August, [facility] [place] [facility] [address] [id number] [place] [address]- 7015 28 Jul, 2014 [facility] [place] [facility] [address] [id number] [place] [address]- 5580 14 Jul, 2014 [facility] [place] [facility] [address] [id number] [place] [address]- 3622 13 Jul, 2014 [facility] [place] [facility] [address] [id number] [place] [address]- 0076 16 Jun, 2014 [facility] [place] [facility] [address] [id number] [place] [address]- 8323 16 Jun, 2014 [facility] [place] [facility] [address] [id number] [place] [address]- 4213 Jun, [facility] [place] [facility] [address] [id number] [place] [address]- 0141 Jun, [facility] [place] [facility] [address] [id number] [place] [address]- 3354 Jun, [facility] [place] [facility] [address] [id number] [place] [address]- 2909 Jun, [facility] [place] [facility] [address] [id number] [place] [address]- 3141 Jun, [facility] [place] [facility] [address] [id number] [place] [address]- 5421 Jun, [facility] [place] [facility] [address] [id number] [place] [address]- 8964 May, [facility] [place] [facility] [address] [id number] [place] [address]- 6449 May, [facility] [place] [facility] [address] [id number] [place] [address]- 8492 May, [facility] [place] [facility] [address] [id number] [place] [address]- 1512 May, [facility] [place] [facility] [address] [id number], [place] [address]- 4120 Apr, [facility] [place] [facility] [address] [id number] [place] [address]- 2959 Mar, [facility] [place] [facility] [address] [id number] [place] [address]- 7642 Mar, [facility] [place] [facility] [address] [facility] [id number] [place] [address]- 2328 Mar, [facility] [place] [facility] [address] [id number] [place] [address]- 4270 Mar, [facility] [place] [facility] [address] [id number] [place] [address]- 7466 Mar, [facility] [place] [facility] [address] [id number] [place] [address]- 9557 Mar, [facility] [place] [facility] [address] [facility] [id number] [place] [address]- 0386 Mar, [facility] [place] [facility] [address] [id number] [place] [address]- 8056 Mar, [facility] [place] [facility] [address] [id number] [place] [address]- 1206 Mar, [facility] [place] [facility] [address] [facility] [id number] [place] [address]- 3073 Feb, [facility] [place] [facility] [address] [id number] [place] [address]- 1973 Feb, [facility] [place] [facility] [address] [id number], [place] [address]- 9496 Feb, [facility] [place] [facility] [address] [id number] [place] [address]- 4236 Feb, [facility] [place] [facility] [address] [facility] [id number] [place] [address]- 3607 Feb, [facility] [place] [facility] [address] [facility] [id number] [place] [address]- 1705 Feb, [facility] [place] [facility] [address] [id number] [place] [address]- 8659 12 Feb, 2014 [facility] [place] [facility] [address] [id number] [place] [address]- 3692 12 Feb, 2014 [facility] [place] [facility] [address] [id number] [place] [address]- 8418 23 Jan, 2014 [facility] [place] [facility] [address] [id number] [place] [address]- 7489 23 Jan, 2014 [facility] [place] [facility] [address] [id number] [place] [address]- 9796 16 Jan, 2014 [facility] [place] [facility] [address] [id number] [place] [address]- 2601 16 Jan, 2014 [facility] [place] [facility] [address] [id number] [place] [address]- 6223 15 Jan, 2014 [facility] [place] [facility] [address] [id number] [place] [address]- 8465 15 Jan, 2014 [facility] [place] [facility] [address] [id number] [place] [address]- 9198 14 Jan, 2014 [facility] [place] [facility] [address] [id number] [place] [address]- 4846 14 Jan, 2014 [facility] [place] [facility] [address] [id number] [place] [address]- 9757 14 Jan, 2014 [facility] [place] [facility] [address] [id number] [place] [address]- 5965 14 Jan, 2014 [facility] [place] [facility] [address] [id number] [place] [address]- 8758 18 Dec, 2013 [facility] [place] [facility] [address] [id number] [place] [address]- 5314 18 Dec, 2013 [facility] [place] [facility] [address] [id number] [place] [address]- 5140 10 Dec, 2013 [facility] [place] [facility] [address] [id number] [place] [address]- 9708 Dec, [facility] [place] [facility] [address] [id number] [place] [address]- 0022 Nov, [facility] [place] [facility] [address] [id number] [place] [address]- 8347 Nov, [facility] [place] [facility] [address] [id number] [place] [address]- 9554 Nov, [facility] [place] [facility] [address] [id number] [place] [address]- 1261 Nov, [facility] [place] [facility] [address] [id number] [place] [address]- 5052 Nov, [facility] [place] [facility] [address] [id number] [place] [address]- 8548 Oct, [facility] [place] [facility] [address] [id number] [place] [address]- 8995 Oct, [facility] [place] [facility] [address] [id number] [place] [address]- 8491 Oct, [facility] [place] [facility] [address] [id number] [place] [address]- 8807 Oct, [facility] [place] [facility] [address] [id number] [place] [address]- 5607 Sep, [facility] [place] [facility] [address] [id number] [place] [address]- 4814 Sep, [facility] [place] [facility] [address] [id number], [place] [address]- 5761 Sep, [facility] [place] [facility] [address] [id number] [place] [address]- 0634 Sep, [facility] [place] [facility] [address] [id number] [place] [address]- 2760 Sep, [facility] [place] [facility] [address] [id number] [place] [address]- 2814 Sep, [facility] [place] [facility] [address] [id number] [place] [address]- 0317 Sep, [facility] [place] [facility] [address] [id number] [place] [address]- 2650 Sep, [facility] [place] [facility] [address] [id number] [place] [address]- 1476 August, [facility] [place] [facility] [address] [id number] [place] [address]- 3157 August, [facility] [place] [facility] [address] [id number] [place] [address]- 5835 August, [facility] [place] [facility] [address] [id number] [place] [address]- 5313 August, [facility] [place] [facility] [address] [id number] [place] [address]- 9992 August, [facility] [place] [facility] [address] [id number] [place] [address]- 7731 August, [facility] [place] [facility] [address] [id number] [place] [address]- 3478 August, [facility] [place] [facility] [address] [id number] [place] [address]- 3577 Jul, [facility] [place] [facility] [address] [id number] [place] [address]- 5745 Jul, [facility] [place] [facility] [address] [id number] [place] [address]- 9941 Jul, [facility] [place] [facility] [address] [id number] [place] [address]- 0534 Jul, [facility] [place] [facility] [address] [id number] [place] [address]- 9478 Jul, [facility] [place] [facility] [address] [id number] [place] [address]- 9464 Jul, [facility] [place] [facility] [address] [id number] [place] [address]- 0717 Jul, [facility] [place] [facility] [address] [id number] [place] [address]- 1638 Jul, [facility] [place] [facility] [address] [id number] [place] [address]- 0206 Jul, [facility] [place] [facility] [address] [id number] [place] [address]- 3862 Jul, [facility] [place] [facility] [address] [id number] [place] [address]- 8248 Jul, [facility] [place] [facility] [address] [id number] [place] [address]- 0437 Jul, [facility] [place] [facility] [address] [id number] [place] [address]- 3315 Jun, [facility] [place] [facility] [address] [id number] [place] [address]- 5195 Jun, [facility] [place] [facility] [address] [id number] [place] [address]- 1718 Jun, [facility] [place] [facility] [address] [id number] [place] [address]- 6413 Jun, [facility] [place] [facility] [address] [id number] [place] [address]- 0258 Jun, [facility] [place] [facility] [address] [id number] [place] [address]- 8526 May, [facility] [place] [facility] [address] [id number] [place] [address]- 8897 May, [facility] [place] [facility] [address] [id number] [place] [address]- 5878 May, [facility] [place] [facility] [address] [id number] [place] [address]- 0202 May, [facility] [place] [facility] [address] [id number] [place] 0825 May, [facility] [place] [facility] [address] [id number] [place] [address]- 2852 May, 2013 [facility] [place] [facility] [address] [id number] [place] 3148 May, 2013 [facility] [place] [facility] [address] [id number] [place] [address]016 May, 2013 [facility] [address] [id number] [place] 3717 Mar, [facility] [place] [facility] [address] [id number] [place] [address]- 6586 Mar, [facility] [place] [facility] [address] [id number] [place] 1996 Mar, [facility] [place] [facility] [address] [id number] [place] [address]- 3210 Mar, [facility] [address] [id number] [place] [address]- 0082 Mar, [facility] [place] [facility] [address] [id number] [place] [address]- 6308 Mar, [facility] [place] [facility] [address] [id number] [place] [address]- 8067 Feb, [facility] [place] [facility] [address] [facility] [id number] [place] [address]- 3747 15 Feb, 2013 [facility] [place] [facility] [address] [id number] [place] [address]- 1177 Jan, [facility] [place] [facility] [address] [id number], [place] [address]- 3676 Jan, [facility] [place] [facility] [address] [id number] [place] [address]- 7331 Jan, [facility] [place] [facility] [address] [id number] [place] [address]- 2552 Jan, [facility] [place] [facility] [address] [id number], [place] [address]- 4969 10 Jan, 2013 [facility] [place] [facility] [address] [id number] [place] [address]- 8856 Jan, [facility] [place] [facility] [address] [id number] [place] [address]- 2800 Jan, [facility] [place] [facility] [address] [id number] [place] [address]- 4246 Jan, [facility] [place] [facility] [address] [id number] [place] [address]- 2242 Jan, [facility] [address] [id number] [place] [address]- 8700 Jan, [facility] [place] [facility] [address] [id number] [place] [address]- 6555 Dec, [facility] [place] [facility] [address] [id number] [place] [address]- 1725 Nov, [facility] [place] [facility] [address] [id number] [place] [address]- 9474 Nov, [facility] [place] [facility] [address] [id number] [place] [address]- 3424 Nov, [facility] [place] [facility] [address] [id number] [place] [address]- 6972 Oct, [facility] [place] [facility] [address] [id number] [place] [address]- 2275 Oct, [facility] [place] [facility] [address] [id number] [place] [address]- 8393 August, [facility] [place] [facility] [address] [id number] [place] [address]- 5185 Apr, [facility] [place] [facility] [address] [id number] [place] [address]- 5228 Apr, [facility] [place] [facility] [address] [id number] [place] [address]- 4309 Feb, [facility] [place] [facility] [address] [id number], [place] [address]- 8086 Feb, [facility] [address] [facility] [id number] [place] [address]- 8466 Dec, [facility] [address] [facility] [id number], [place] [address]- 4196 Dec, [facility] [address] [facility] [id number], [place] [address] 2546 Oct, [facility] [address] [facility] [id number], [place] [address]- 2886 Oct, [facility] [address] [facility] [id number], [place] [address]- 3456 Oct, [facility] [address] [facility] [id number], [place] [address]- 1006 Jul, IMMUNIZATIONS Vaccine Route Administration Date Status INVEGA (PT'S OWN) IM Intramuscular October 04, 2017 Administered SOCIAL HISTORY Never Assessed REASON FOR VISIT Injection Dinora PLAN OF CARE VITAL SIGNS MEDICATIONS Unknown Medications RESULTS No Results PROCEDURES Procedure Date Ordered Result Body Site INVEGA (PT'S OWN) October 04, 2017 THER/PROPH/DIAG INJ, SC/IM October 04, 2017 INSTRUCTIONS MEDICATIONS ADMINISTERED No Known Medications [...] illness , last one in [facility] 4 years ago
--- OUTSIDE RECORDS SUMMARY | 2018-09-02 13:41 | XMS REPORT ---
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 Name Role Phone SOTO STRICKLAND Unavailable PROBLEMS Type Condition ICD9-CM Code [id number] Code Onset Dates Condition Status SNOMED Code Problem OAB (overactive bladder) N32.81 Active 145788169 Problem Depression with anxiety F41.8 Active 993895138 Problem Other seasonal allergic rhinitis J30.2 Active 314203948 Problem Chronic obstructive pulmonary disease, unspecified COPD type J44.9 Active 60125123 Problem Tobacco abuse Z72.0 Active 722667031 Problem Morbid obesity due to excess calories E66.01 Active 208387019 Problem Dyslipidemia E78.5 Active 786710161 Problem Hypothyroidism (acquired) E03.9 Active 496593960 Problem Essential hypertension I10 Active 49280288 Problem Diabetic polyneuropathy associated with type 2 diabetes mellitus E11.42 Active 840766391 Problem Type 2 diabetes mellitus with diabetic neuropathic arthropathy, 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 Active 556692243 Problem Type 2 diabetes mellitus without complication, without long-term current use of insulin E11.9 Active 568724888 Problem Paranoid schizophrenia F20.0 Active 58618338 Problem Chronic pain syndrome G89.4 Active 236818729 Problem Migraine without aura and without status migrainosus, not intractable G43.009 Active 747163979 Problem Gastroesophageal reflux disease, esophagitis presence not specified K21.9 Active 108128572 Problem Seasonal allergic rhinitis due to pollen J30.1 Active 35616919 Problem COPD exacerbation J44.1 Active 611786065 Problem Seasonal allergic rhinitis due to other allergic trigger J30.89 Active 279209715 Problem Schizoaffective disorder, depressive type F25.1 Active 46410714 Problem History of lupus Z87.39 Active 499341783 Problem Gastroesophageal reflux disease without esophagitis K21.9 Active 165221774 Problem Menopausal syndrome (hot flashes) N95.1 Active 777226519 Problem Other allergic rhinitis J30.89 Active 934664792 Problem Primary insomnia F51.01 Active 6237218 Problem DM neuro manif type II E11.49 Active 10730166 ALLERGIES No Information ENCOUNTERS Encounter Location Date Diagnosis [place] [address] [address] Dec, [place] [address] [place] [id number] [place] [address] 70939- 5064 Nov, [place] [address] [place] [id number] [place] [address] 47331- 4610 Nov, [place] [address] [place] [id number] [place] [address] 97244- 9175 Nov, Schizoaffective disorder, depressive type F25.1 [place] [address] [place] [id number] [place] [address] 17974- 7738 Nov, Well woman exam Z01.419 ; BMI 45.0-49.9, adult Z68.42 ; Screening breast examination Z12.31 and Dietary counseling and surveillance Z71.3 [place] [address] [place] [id number] [place] [address] 80751- 6731 Nov, Paranoid schizophrenia F20.0 [place] [address] [place] [address] 67131- 6727 Nov, Gastroesophageal reflux disease, esophagitis presence not specified K21.9 [place] [address] [place] [address] 65163- 5298 Oct, Paranoid schizophrenia F20.0 [facility] [address] [id number] [place] [address] Oct Chronic pain syndrome G89.4 and Schizoaffective disorder, depressive type F25.1 [place] [address] [address] Oct, Chronic pain syndrome G89.4 and Schizoaffective disorder, depressive type F25.1 [place] [address] [place] [id number] [place] [address] 24967- 8252 16 Oct, 2017 Type 2 diabetes mellitus without complication, without long- term current use of insulin E11.9 [place] [address] [place] [address] [place] [address] 23674- 7084 12 Oct, 2017 Essential hypertension I10 and DM neuro manif type II E11.49 [place] [address] [place] [address] [place] [address] 00141- 2800 Oct, [place] [address] [place] [address] [place] [address] 09813- 9739 Oct, Schizoaffective disorder, depressive type F25.1 and BMI 45.0 -49.9, adult Z68.42 [place] [address] [place] [address] [place] [address] 68059- 6464 Oct, [place] [address] [place] [address] [place] [address] 98084- 2175 Oct, Paranoid schizophrenia F20.0 [place] [address] [place] [address] [place] [address] 84062- 3120 Oct, Type 2 diabetes mellitus with diabetic neuropathic arthropathy, 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 ; Essential hypertension I10 ; Hypothyroidism (acquired) E03.9 ; Chronic obstructive pulmonary disease, unspecified COPD type J44.9 and Diabetic polyneuropathy associated with type 2 diabetes mellitus E11.42 [place] [address] [place] [address] [place] [address] 03721- 1525 Sep, Paranoid schizophrenia F20.0 [place] [address] [place] [id number] [place] [address] 89381- 7375 Sep, Paranoid schizophrenia F20.0 and BMI 45.0-49.9, adult Z68.42 [place] [address] [place] [address] [place] [address] 88845- 5669 Sep, Schizoaffective disorder, depressive type F25.1 [place] [address] [place] [address] [place] [address] 44316- 4130 Sep, [facility] [address] [place] [address] 28560- 4533 Sep, Paranoid schizophrenia F20.0 [facility] [address] [place] [id number] [place] [address] 73295- 9921 Sep, [facility] [address] [place] [address] [place] [address] 37606- 7456 Sep, Hypothyroidism (acquired) E03.9 [facility] [address] [place] [address] [place] [address] 44608- 3476 Sep, [facility] [address] [place] [address] [place] [address] 68729- 1026 August, Schizoaffective disorder, depressive type F25.1 [facility] [address] [place] [address] [place] [address] 89499- 4888 August, [facility] [address] [place] [address] [place] [address] 07383- 9559 August, [facility] [address] [place] [address] [place] [address] 84132- 1753 August, [facility] [address] [place] [address] [place] [address] 74875- 0863 August, Paranoid schizophrenia F20.0 [facility] [address] [place] [address] 18845- 5164 August, History of lupus Z87.39 and Chronic pain syndrome G89.4 [facility] [address] [place] [address] 73019- 2371 August, [facility] [address] [place] [id number] [place] [address] 78756 -6411 August, Seasonal allergic rhinitis, unspecified trigger J30.2 and BMI 45.0-49.9, adult Z68.42 [facility] [address] [place] [address] [place] [address] 93423- 2580 Jul, Schizoaffective disorder, depressive type F25.1 [facility] [address] 00975- 5428 Jul, [facility] [address] 05971- 9590 Jul, Hypothyroidism (acquired) E03.9 [facility] [address] 82651- 5525 Jul, Chronic obstructive pulmonary disease, unspecified COPD type J44.9 and Type 2 diabetes mellitus without complication, without long-term current use of insulin E11.9 [place] [address] 96762- 6103 Jul, Paranoid schizophrenia F20.0 [place] [address] 39157- 4414 Jun, Hypothyroidism (acquired) E03.9 and Seasonal allergic rhinitis due to pollen J30.1 [facility] [address] 79116 -3658 Jun, Shortness of breath at rest R06.02 ; COPD exacerbation J44.1 and BMI 45.0-49.9, adult Z68.42 [place] [address] 13891- 1390 Jun, [facility] [address] 50727- 6803 Jun, Paranoid schizophrenia F20.0 ; Depression with anxiety F41.8 and BMI 45.0-49.9, adult Z68.42 [facility] [address] 71151- 6362 20 Jun, 2017 Schizoaffective disorder, depressive type F25.1 [facility] [address] [id number] 13 Jun, 2017 Dental caries K02.9 [facility] [address] 38459- 5283 Jun, Paranoid schizophrenia F20.0 [facility] [address] [place] [address] May, Migraine without aura and without status migrainosus, not intractable G43.009 ; DM neuro manif type II E11.49 and Type 2 diabetes mellitus without complication, without long-term current use of insulin E11.9 [facility] [address] [place] [address] [place] [address] 50475- 7944 May, Migraine without aura and without status migrainosus, not intractable G43.009 [facility] [address] [place] [address] [place] [address] 9832 May, Depression with anxiety F41.8 [facility] [address] [place] [id number] [place] [address] [id number] May, [facility] [address] 86331- 4806 May, [facility] [address] [place] [address] [place] [address] 26905- 5489 May, [facility] [address] [place] [address] [place] [address] 9873 May, Hypothyroidism (acquired) E03.9 [facility] [address] [place] [address] [place] [address] 41733- 0446 May, Paranoid schizophrenia F20.0 [facility] [address] [place] [address] [place] [address] 59420- 2872 May, Type 2 diabetes mellitus without complication, [...] N32.81 and Controlled substance agreement signed Z79.899 [facility] [address] [place] [address] [place] [address] 13840- 8218 May, Controlled substance agreement signed Z79.899 [facility] [address] 68426- 8277 Apr, [facility] [address] [id number] Apr, Dental examination Z01.20 [place] [address] 39746- 3639 Apr, Paranoid schizophrenia F20.0 [facility] [address] [place] [address] [place] [address] 67693- 0089 Apr, Hypertension, unspecified type I10 [facility] [address] [place] [address] [place] [address] 95018- 7771 Apr, Paranoid schizophrenia F20.0 [facility] [address] 55986- 5499 Apr, [facility] [address] [place] [address] [place] [address] 08575- 4531 Apr, Tobacco abuse Z72.0 [facility] [address] [place] [address] [place] [address] 28048- 6053 Apr, [facility] [address] [place] [address] [place] [address] 28795- 4206 Mar, [facility] [address] 85559- 7028 Mar, Paranoid schizophrenia F20.0 and BMI 45.0-49.9, adult Z68.42 [facility] [address] [place] [address] [place] [address] 81360- 0835 Mar, Schizoaffective disorder, depressive type F25.1 [facility] [address] 57769- 7122 Mar, [facility] [address] 38124- 1209 Mar, Hypothyroidism, unspecified type E03.9 [place] [address] 08720- 6707 Mar, Schizoaffective disorder, depressive type F25.1 [facility] [address] 84298 -9056 Feb, Gastroenteritis K52.9 and BMI 45.0-49.9, adult Z68.42 [place] [address] 77797- 7326 Feb, [place] [address] 22557- 2713 Feb, [place] [address] 91786- 6804 Feb, [place] [address] 88935- 9513 16 Feb, 2017 [place] [address] 89450- 9858 Feb, Paranoid schizophrenia F20.0 [place] [address] 04739- 9097 06 Feb, 2017 Gastroesophageal reflux disease without esophagitis K21.9 ; Other seasonal allergic rhinitis J30.2 ; Other allergic rhinitis J30.89 ; Tobacco abuse Z72.0 and BMI 40.0-44.9, adult Z68.41 [place] [address] 25542- 9925 03 Feb, 2017 Onychomycosis B35.1 ; Callus of foot L84 and DM neuro manif type II E11.49 [place] [address] [place] [address]- 6284 31 Jan, 2017 Chronic allergic rhinitis J30.9 [facility] [address] 79437- 6655 16 Jan, 2017 [facility] [address] 44113- 5999 13 Jan, 2017 Schizoaffective disorder, depressive type F25.1 [facility] [address] 51647- 4010 10 Jan, 2017 [facility] [address] 75173 -5190 07 Jan, 2017 Sore throat J02.9 and Seasonal allergic rhinitis due to other allergic trigger J30.89 [place] [address] 02258- 7378 04 Jan, 2017 [facility] [address] 72209- 1188 04 Jan, 2017 [facility] [address] 15826 -6122 Jan, Chronic allergic rhinitis J30.9 [facility] [address] 09413- 5106 27 Dec, 2016 Paranoid schizophrenia F20.0 ; Primary insomnia F51.01 and Schizoaffective disorder, depressive type F25.1 [facility] [address] 36043- 7353 21 Dec, 2016 Chronic pain syndrome G89.4 ; Cervicalgia of occipito- atlanto-axial region M54.2 ; Menopausal syndrome (hot flashes) N95.1 and Encounter for immunization Z23 [place] [address] 72915- 7903 14 Dec, 2016 [facility] [address] 19007- 6964 13 Dec, 2016 [facility] [address] [place] [address]- 6129 Dec, Paranoid schizophrenia F20.0 [facility] [address] [place] [address] [place] [address] 72039- 6931 Dec, Schizoaffective disorder, depressive type F25.1 [facility] [address] [place] [address] [place] [address] 33459- 5800 Nov, Hypothyroidism, unspecified type E03.9 [facility] [address] [place] [address] [place] [address] 93513 -0984 Nov, Acute seasonal allergic rhinitis due to other allergen J30.89 [facility] [address] 81796- 4442 Nov, [facility] [address] [place] [address] [place] [address] 47715- 8796 Nov, Hypothyroidism, unspecified type E03.9 and Other elevated white blood cell (WBC) count D72.828 [place] [address] [place] [address] [place] [address] 26375- 2949 Nov, Schizoaffective disorder, depressive type F25.1 [place] [address] [place] [address] [place] [address] 40697- 5727 Nov, Paranoid schizophrenia F20.0 [facility] [address] [place] [address] [place] [address] 21529- 8977 Nov, Type 2 diabetes mellitus without complication, without long- term current use of insulin E11.9 ; Morbid obesity due to excess calories E66.01 and Chronic pain syndrome G89.4 [place] [address] [place] [address] [place] [address] 68918- 7582 Oct, Paranoid schizophrenia F20.0 [facility] [address] [place] [address] [place] [address] 33405- 8201 Oct, [facility] [address] [place] [address] [place] [address] 03807- 6340 Oct, Schizoaffective disorder, depressive type F25.1 [facility] [address] [place] [address] [place] [address] 71492- 0652 Oct, Hypothyroidism, unspecified type E03.9 and Other elevated white blood cell (WBC) count D72.828 [facility] [address] [place] [address] [place] [address] 25736- 4506 Oct, Morbid obesity due to excess calories E66.01 ; Chronic obstructive pulmonary disease, unspecified COPD type J44.9 ; History of lupus Z87.39 ; Hypothyroidism, unspecified type E03.9 ; Gastroesophageal reflux disease without esophagitis K21.9 ; Primary insomnia F51.01 and Chronic pain syndrome G89.4 [place] [address] [place] [address] [place] [address] 31752- 4311 Sep, [place] [address] [place] [address] [place] [address] 22997- 2817 Sep, [facility] [address] [place] [address] [place] [address] 69138- 1616 Sep, [facility] [address] [place] [address] [place] [address] 12637- 1183 Sep, Paranoid schizophrenia F20.0 [facility] [address] [place] [address] [place] [address] 93146- 9878 Sep, [facility] [address] [place] [address] [place] [address] 94082- 4825 Sep, Paranoid schizophrenia F20.0 [facility] [address] [place] [address] [place] [address] 12558- 8035 Sep, [facility] [address] [place] [address] [place] [address] 61119- 5924 August, Paranoid schizophrenia F20.0 [facility] [address] [place] [address] [place] [address] 70069- 2044 Jul, [facility] [address] [place] [address] [place] [address] 77250- 9444 18 Jul, 2017 Type 2 diabetes mellitus without complication, without long- term current use of insulin E11.9 ; Morbid obesity due to excess calories E66.01 ; Depression with anxiety F41.8 ; Hypothyroidism, unspecified type E03.9 ; Seasonal allergic rhinitis due to other allergic trigger J30.89 ; Pain, dental K08.89 and Gastroesophageal reflux disease without esophagitis K21.9 [facility] [address] [place] [id number] [place] [address] [id number] 12 Jul, 2016 Dental examination Z01.20 [place] [address] 03045- 6857 07 Jul, 2016 Paranoid schizophrenia F20.[address] 62311- 1216 13 Jun, 2016 Paranoid schizophrenia F20.0 and Depression with anxiety F41.[address] 59064- 4192 Jun, Paranoid schizophrenia F20.0 and Depression with anxiety F41.8 [place] [address] [place] [address] [place] [address] 03015- 5676 Jun, [address] 37065- 5721 Jun, [facility] [place] [id number] [place] [address] 59612 -6812 Jun, Seasonal allergic rhinitis due to other allergic trigger J30.89 [facility] [place] [address] [place] [address] 95240 -8130 May, Sore throat J02.9 ; Other viral agents as the cause of diseases classified elsewhere B97.89 and Acute upper respiratory infection, unspecified J06.9 [place] [address] [place] [address] 12115- 7063 May, Paranoid schizophrenia F20.0 and Depression with anxiety F41.8 [place] [address] [place] [address] 18396- 5798 Apr, Other seasonal allergic rhinitis J30.2 [place] [address] [place] [address] [place] [address] 59972- 0633 Apr, Paranoid schizophrenia F20.0 and Depression with anxiety F41.8 [facility] [address] [place] [address] [place] [address] 97955 -8625 Apr, Bronchitis J40 and Sore throat J02.9 [place] [address] 12469- 1111 Apr, Type 2 diabetes mellitus without complication, without long- term current use of insulin E11.9 [facility] [address] [place] [address] [place] [address] 80416 -9818 Apr, Bronchitis J40 [place] [address] 43457- 7735 Apr, [place] [address] 61210- 7088 Apr, [place] [address] [place] [address] [place] [address] 51077- 6225 Mar, Type 2 diabetes mellitus without complication, [...] R60.9 and Other seasonal allergic rhinitis J30.2 [place] [address] [place] [address] [place] [address] 17387- 2271 Mar, Paranoid schizophrenia F20.0 and Depression with anxiety F41.8 [place] [address] [place] [address] [place] [address] 31316- 6783 Feb, [place] [address] [place] [address] [place] [address] 2546 Feb, [facility] [address] [place] [address] 10822- 9673 Feb, [facility] [address] [place] [address] [place] [address] 36745- 5568 Feb, [facility] [address] [place] [address] [address] [place] [address] 17377- 8746 Feb, Type 2 diabetes mellitus without complication, without long- term current use of insulin E11.9 ; ARIAS on CPAP G47.33 and Preoperative evaluation to rule out surgical contraindication Z01.818 [facility] [address] [place] [address] [place] [address] 957097- 1337 09 Feb, 2016 Paranoid schizophrenia F20.0 and Depression with anxiety F41.8 [facility] [address] [place] [address] [place] [address] 81853- 2068 Jan, [facility] [address] [place] [id number] [place] [address] 06204- 9470 Jan, Paranoid schizophrenia F20.0 and Depression with anxiety F41.8 [facility] [address] [place] [address] [place] [address] 19802- 6287 Jan, [facility] [address] [place] [address] 01934- 8255 Jan, Muscle strain T14.8 [facility] [address] [place] [address] [place] [address] 25915- 9251 Jan, Paranoid schizophrenia F20.0 [facility] [address] [place] [address] 20479- 4815 Jan, [facility] [id number] [place] [address] [phone] 5121 Jan, Paranoid schizophrenia F20.0 and Depression with anxiety F41.8 [facility] [id number] [place] [address] [id number]- 1950 Jan, [facility] [id number] [address] Jan, [facility] [id number] [address] 28 Dec, 2015 [facility] [id number] [address] Dec, Paranoid schizophrenia F20.0 [facility] [id number] [place] [address] [id number]- 3623 16 Dec, 2015 Paranoid schizophrenia F20.0 and Depression with anxiety F41.8 [facility] [id number] [place] [address] 68545- 6895 Nov, [facility] [id number] [place] [address] 88541- 2201 Nov, Paranoid schizophrenia F20.0 [facility] [id number] [place] [address] 23750- 1087 Nov, Paranoid schizophrenia F20.0 and Depression with anxiety F41.8 [facility] [id number] [address] Nov, Type 2 diabetes mellitus without complication, without long- term current use of insulin E11.9 ; Paranoid schizophrenia F20.0 ; Chronic obstructive pulmonary disease, unspecified COPD type J44.9 ; Morbid obesity due to excess calories E66.01 and Parkinsonian tremor G20 [facility] [facility] [id number] [address] Nov, [facility] [id number] [address] Oct, Paranoid schizophrenia F20.0 [facility] [id number] [address] Oct, Paranoid schizophrenia F20.0 [facility] [id number] [address] Oct, Paranoid schizophrenia F20.0 and Depression with anxiety F41.8 [place] [id number] [address] Oct, [place] [address] [place] [id number] [place] [address]- 6576 Oct, Paranoid schizophrenia F20.0 and Depression with anxiety F41.8 [place] [address] [place] [id number] [place] [address] 8[address]- 4377 Oct, Nasal sore J34.89 [place] [address] [place] [id number] [place] [address]- 4595 Oct, Type 2 diabetes mellitus without complication, without long- term current use of insulin E11.9 ; Depression with anxiety F41.8 ; Hypothyroidism, unspecified type E03.9 and History of lupus Z87.39 [place] [address] [place] [id number] [place] [address] 8[address]- 6648 Oct, [place] [address] [place] [id number] [place] [address] 79990- 3639 Oct, Type 2 diabetes mellitus without complication, [...] edema R60.9 and History of lupus Z87.39 [place] [address] [place] [id number] [place] [address] 59[address]- 5227 Feb, [place] [address] [place] [id number] [place] [address] 6[address]- 0158 Jan, [place] [address] [place] [id number] [place] [address]- 8466 Jan, [place] [address] [facility] [id number] [place] [address] 3028 Jan, [facility] [address] [facility] [id number] [place] [address]- 2817 Dec, [facility] [address] [facility] [id number] [place] [address]- 3405 Nov, [facility] [address] [facility] [id number] [place] [address]- 1545 Nov, [facility] [address] [facility] [id number] [place] [address]- 3076 Oct, [facility] [id number] [address] 1278 Oct, [facility] [id number] [address] Oct, [facility] [id number] [address]- 1787 Sep, Allergic rhinitis 477.9 [facility] [address] [place] [id number] [address]- 4417 Sep, Rhinitis, allergic 477.9 [facility] [id number] [address]- 4082 Sep, Rhinitis, allergic 477.9 [facility] [id number] [address]- 0140 Sep, [facility] [id number] [address]- 5181 August, [facility] [id number] [address]- 8890 August, [facility] [id number] [address]- 4731 August, [facility] [id number] [address] Jul, [facility] [place] [facility] [address] [id number] [place] [address]- 3394 14 Jul, 2014 [facility] [place] [facility] [address] [id number] [place] [address]- 0952 13 Jul, 2014 [facility] [place] [facility] [address] [id number] [place] [address]- 9194 16 Jun, 2014 [facility] [place] [facility] [address] [id number] [place] [address]- 3805 16 Jun, 2014 [facility] [place] [facility] [address] [id number] [place] [address]- 4820 Jun, [facility] [place] [facility] [address] [id number] [place] [address]- 7329 Jun, [facility] [place] [facility] [address] [id number] [place] [address]- 3469 Jun, [facility] [place] [facility] [address] [id number] [place] [address]- 0364 Jun, [facility] [place] [facility] [address] [id number] [place] [address]- 2985 Jun, [facility] [place] [facility] [address] [id number] [place] [address]- 1935 Jun, [facility] [place] [facility] [address] [id number] [place] [address]- 5276 May, [facility] [place] [facility] [address] [id number] [place] [address]- 6216 May, [facility] [place] [facility] [address] [id number] [place] [address]- 6710 May, [facility] [place] [facility] [address] [id number] [place] [address]- 2207 May, [facility] [place] [facility] [address] [id number] [place] [address]- 6870 Apr, [facility] [place] [facility] [address] [id number] [place] [address]- 6710 Mar, [facility] [place] [facility] [address] [id number] [place] [address]- 9693 Mar, [facility] [place] [facility] [address] [id number] [place] [address] Mar, [facility] [place] [facility] [address] [id number] [place] [address]- 4577 Mar, [facility] [place] [facility] [address] [id number] [place] [address]- 2139 Mar, [facility] [place] [facility] [address] [id number] [place] [address]- 2260 Mar, [facility] [place] [facility] [address] [id number] [place] [address]- 2691 Mar, [facility] [place] [facility] [address] [id number] [place] [address]- 5359 Mar, [facility] [place] [facility] [address] [id number] [place] [address]- 9738 Mar, [facility] [place] [facility] [address] [id number] [place] [address]- 4418 Feb, [facility] [place] [facility] [address] [id number] [place] [address]- 3240 Feb, [facility] [place] [facility] [address] [id number] [place] [address]- 4137 Feb, [facility] [place] [facility] [address] [id number] [place] [address]- 4781 17 Feb, 2014 [facility] [place] [facility] [address] [id number] [place] [address]- 3739 Feb, [facility] [place] [facility] [address] [id number] [place] [address]- 6925 Feb, [facility] [place] [facility] [address] [id number] [place] [address]- 3551 12 Feb, 2014 [facility] [place] [facility] [address] [id number] [place] [address]- 1380 12 Feb, 2014 [facility] [place] [facility] [address] [id number] [place] [address]- 1260 23 Jan, 2014 [facility] [place] [facility] [address] [id number] [place] [address]- 4248 23 Jan, 2014 [facility] [place] [facility] [address] [id number] [place] [address]- 4953 16 Jan, 2014 [facility] [place] [facility] [address] [id number] [place] [address]- 3271 16 Jan, 2014 [facility] [place] [facility] [address] [id number] [place] [address]- 0926 15 Jan, 2014 [facility] [place] [facility] [address] [id number] [place] [address]- 1923 15 Jan, 2014 [facility] [place] [facility] [address] [id number] [place] [address]- 7442 14 Jan, 2014 [facility] [place] [facility] [address] [id number] [place] [address]- 1927 14 Jan, 2014 [facility] [place] [facility] [address] [id number] [place] [address]- 8632 14 Jan, 2014 [facility] [place] [facility] [address] [id number] [place] [address]- 4746 14 Jan, 2014 [facility] [place] [facility] [address] [id number] [place] [address]- 6218 18 Dec, 2013 [facility] [place] [facility] [address] [id number] [place] [address]- 4248 18 Dec, 2013 [facility] [place] [facility] [address] [id number] [place] [address]- 4352 10 Dec, 2013 [facility] [place] [facility] [address] [id number] [place] [address]- 2464 10 Dec, 2013 [facility] [place] [facility] [address] [id number] [place] [address]- 9938 Nov, [facility] [place] [facility] [address] [id number] [place] [address]- 1719 Nov, [facility] [place] [facility] [address] [id number] [place] [address]- 2491 Nov, [facility] [place] [facility] [address] [id number] [place] [address]- 7695 Nov, [facility] [place] [facility] [address] [id number] [place] [address]- 4817 Nov, [facility] [place] [facility] [address] [id number] [place] [address]- 4409 Oct, [facility] [place] [facility] [address] [id number] [place] [address]- 0408 Oct, [facility] [place] [facility] [address] [id number] [place] [address]- 4447 Oct, [facility] [place] [facility] [address] [id number] [place] [address]- 4522 Oct, [facility] [place] [facility] [address] [id number] [place] [address]- 4542 Sep, [facility] [place] [facility] [address] [id number] [place] [address]- 7368 Sep, [facility] [place] [facility] [address] [id number] [place] [address]- 1531 Sep, [facility] [place] [facility] [address] [id number] [place] [address]- 6254 Sep, [facility] [place] [facility] [address] [id number] [place] [address]- 3802 Sep, [facility] [place] [facility] [address] [id number] [place] [address]- 2547 Sep, [facility] [place] [facility] [address] [id number] [place] [address]- 1575 Sep, [facility] [place] [facility] [address] [id number] [place] [address]- 0827 Sep, [facility] [place] [facility] [address] [id number] [place] [address]- 4981 August, [facility] [place] [facility] [address] [id number] [place] [address]- 3521 August, [facility] [place] [facility] [address] [id number] [place] [address]- 0205 August, [facility] [place] [facility] [address] [id number] [place] [address]- 9947 August, [facility] [place] [facility] [address] [id number] [place] [address]- 9627 August, [facility] [place] [facility] [address] [id number] [place] [address]- 3842 August, [facility] [place] [facility] [address] [id number] [place] [address]- 5442 August, [facility] [place] [facility] [address] [id number] [place] [address]- 7758 Jul, [facility] [place] [facility] [address] [id number] [place] [address]- 6279 Jul, [facility] [place] [facility] [address] [id number] [place] [address]- 9649 Jul, [facility] [place] [facility] [address] [id number] [place] [address]- 0000 Jul, [facility] [place] [facility] [address] [id number] [place] [address]- 6998 28 Jul, 2013 [facility] [place] [facility] [address] [id number] [place] [address]- 9452 Jul, [facility] [place] [facility] [address] [id number] [place] [address]- 9274 2013 [facility] [place] [facility] [address] [id number] [place] [address]- 9070 Jul, [facility] [place] [facility] [address] [id number] [place] [address]- 1114 Jul, [facility] [place] [facility] [address] [id number] [place] [address]- 3749 Jul, [facility] [place] [facility] [address] [id number] [place] [address]- 9207 Jul, [facility] [place] [facility] [address] [id number] [place] [address]- 2247 Jul, [facility] [place] [facility] [address] [id number] [place] [address]- 1426 Jun, [facility] [place] [facility] [address] [id number] [place] [address]- 7190 Jun, [facility] [place] [facility] [address] [facility] [id number] [place] [address]- 2967 Jun, [facility] [place] [facility] [address] [id number] [place] [address]- 2863 Jun, [facility] [place] [facility] [address] [id number] [place] [address]- 1232 Jun, [facility] [place] [facility] [address] [id number] [place] [address]- 8697 May, [facility] [place] [facility] [address] [facility] [id number] [place] [address]- 9481 May, [facility] [place] [facility] [address] [id number] [place] [address]- 9174 May, [facility] [place] [facility] [address] [id number] [place] [address]- 3059 May, [facility] [place] [facility] [address] [id number] [place] [address]- 3096 May, [facility] [place] [facility] [address] [facility] [id number] [place] 2105 May, [facility] [place] [facility] [address] [id number] [address]- 4170 May, [facility] [address] [id number] [place] [address]- 4402 May, [facility] [address] [id number] [place] 4883 Mar, [facility] [address] [facility] [id number] [place] [address]- 1141 Mar, [facility] [place] [facility] [address] [id number] [place] [address]- 3945 Mar, [facility] [address] [id number] [place] [address]- 9416 Mar, [facility] [place] [facility] [address] [facility] [id number] [place] [address]- 2087 Mar, [facility] [address] [facility] [id number] [place] [address]- 9281 Mar, [facility] [place] [facility] [address] [facility] [id number] [place] [address]- 3648 Feb, [facility] [address] [facility] [id number] [place] [address]- 4329 Feb, [facility] [place] [facility] [address] [facility] [id number] [place] [address]- 9542 Jan, [facility] [place] [facility] [address] [facility] [id number] [place] [address]- 5618 Jan, [facility] [place] [facility] [address] [id number] [address]- 3205 Jan, [facility] [place] [facility] [address] [id number] [address]- 6082 Jan, [facility] [place] [facility] [address] [facility] [id number][place] [address]- 1283 Jan, [facility] [place] [facility] [address] [facility] [id number] [address]- 8624 Jan, [facility] [place] [facility] [address] [id number] [place] [address]- 0284 Jan, [facility] [place] [facility] [address] [id number] [place] [address]- 4235 Jan, [facility] [place] [facility] [address] [id number] [place] [address]- 7480 Jan, [facility] [place] [facility] [address] [id number] [place] [address]- 0735 Jan, [facility] [place] [facility] [address] [id number] [place] [address]- 1864 Dec, [facility] [place] [facility] [address] [id number] [place] [address]- 7872 Nov, [facility] [place] [facility] [address] [id number] [place] [address]- 8959 Nov, [facility] [place] [facility] [address] [id number] [place] [address]- 6268 Nov, [facility] [place] [facility] [address] [id number] [place] [address]- 4602 Oct, [facility] [place] [facility] [address] [id number] [place] [address]- 5672 Oct, [facility] [place] [facility] [address] [id number] [place] [address]- 6290 August, [facility] [place] [facility] [address] [id number] [place] [address]- 9884 Apr, [facility] [place] [facility] [address] [id number] [place] [address]- 4311 Apr, [facility] [place] [facility] [address] [id number] [place] [address]- 3746 Feb, [facility] [place] [facility] [address] [id number] [place] [address]- 2316 Feb, [facility] [place] [facility] [address] [id number] [place] [address]- 4787 Dec, [facility] [address] [facility] [id number] [place] [address]- 0666 Dec, [facility] [address] [facility] [id number] [address]- 1456 Oct, [facility] [address] [facility] [id number][place] [address]- 2546 Oct, [facility] [address] [facility] [id number][place] [address]- 2546 Oct, [facility] [address] [facility] [id number][place] [address]- 1046 Jul, IMMUNIZATIONS No Known Immunizations SOCIAL HISTORY Never Assessed REASON FOR VISIT Lab (walk-in) PLAN OF CARE VITAL SIGNS MEDICATIONS Unknown Medications RESULTS Name Result Date Reference Range 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
--- OUTSIDE RECORDS SUMMARY | 2018-09-02 13:42 | XMS REPORT ---
Author Author SOTO STRICKLAND Organization [facility] Address [address] [place] [address] Care Team Providers Care Supervisor [employer] Name Role Phone SOTO STRICKLAND Unavailable PROBLEMS Type Condition ICD9-CM Code TAN85-AX Code Onset Dates Condition Status SNOMED Code Problem OAB (overactive bladder) N32.81 Active 979261068 Problem Depression with anxiety F41.8 Active 144376493 Problem Other seasonal allergic rhinitis J30.2 Active 157423343 Problem Chronic obstructive pulmonary disease, unspecified COPD type J44.9 Active 32235228 Problem Tobacco abuse Z72.0 Active 427910638 Problem Morbid obesity due to excess calories E66.01 Active 479534241 Problem Dyslipidemia E78.5 Active 032310773 Problem Hypothyroidism (acquired) E03.9 Active 011432806 Problem Essential hypertension I10 Active 58018079 Problem Diabetic polyneuropathy associated with type 2 diabetes mellitus E11.42 Active 117613855 Problem Type 2 diabetes mellitus with diabetic neuropathic arthropathy, 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 Active 111479597 Problem Type 2 diabetes mellitus without complication, without long-term current use of insulin E11.9 Active 279638157 Problem Paranoid schizophrenia F20.0 Active 66867263 Problem Chronic pain syndrome G89.4 Active 186163663 Problem Migraine without aura and without status migrainosus, not intractable G43.009 Active 685728435 Problem Gastroesophageal reflux disease, esophagitis presence not specified K21.9 Active 863423672 Problem Seasonal allergic rhinitis due to pollen J30.1 Active 87213286 Problem COPD exacerbation J44.1 Active 184526354 Problem Seasonal allergic rhinitis due to other allergic trigger J30.89 Active 653087132 Problem Schizoaffective disorder, depressive type F25.1 Active 42231256 Problem History of lupus Z87.39 Active 486709202 Problem Gastroesophageal reflux disease without esophagitis K21.9 Active 799748377 Problem Menopausal syndrome (hot flashes) N95.1 Active 536006670 Problem Other allergic rhinitis J30.89 Active 542893055 Problem Primary insomnia F51.01 Active 3843408 Problem DM neuro manif type II E11.49 Active 95853490 ALLERGIES No Information ENCOUNTERS Encounter Location Date Diagnosis [place] [address] [address] Dec, [place] [address] [place] [id number] [place] [address] 22395- 4594 Nov, [place] [id number] [place] [address] 20172- 1765 Nov, [place] [id number] [place] [address] 97377- 6508 Nov, Schizoaffective disorder, depressive type F25.1 [place] [address] [id number] [place] [address] 17482- 5705 Nov, Well woman exam Z01.419 ; BMI 45.0-49.9, adult Z68.42 ; Screening breast examination Z12.31 and Dietary counseling and surveillance Z71.3 [place] [address] [id number] [place] [address] 11892- 0652 Nov, Paranoid schizophrenia F20.0 [place] [address] [place] [address] 57621- 3660 Nov, Gastroesophageal reflux disease, esophagitis presence not specified K21.9 [place] [address] [place] [address] 19333- 1403 Oct, Paranoid schizophrenia F20.0 [facility] [id number] [place] [address] Oct Chronic pain syndrome G89.4 and Schizoaffective disorder, depressive type F25.1 [place] [address], [place] [address] Oct, Chronic pain syndrome G89.4 and Schizoaffective disorder, depressive type F25.1 [place] [address] [id number] [place] [address] 86549- 7277 16 Oct, 2017 Type 2 diabetes mellitus without complication, without long- term current use of insulin E11.9 [place] [address] [id number] [place] [address] 89931- 5244 12 Oct, 2017 Essential hypertension I10 and DM neuro manif type II E11.49 [place] [address] [address] [id number] [place] [address] 73432- 6866 Oct, [place] [address] [id number] [place] [address] 70270- 6367 Oct, Schizoaffective disorder, depressive type F25.1 and BMI 45.0 -49.9, adult Z68.42 [place] [address] [id number] [place] [address] 33587- 6878 Oct, [place] [id number] [place] [address] 54841- 9057 Oct, Paranoid schizophrenia F20.0 [place] [address] [id number] [place] [address] 04243- 4918 Oct, Type 2 diabetes mellitus with diabetic neuropathic arthropathy, 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 ; Essential hypertension I10 ; Hypothyroidism (acquired) E03.9 ; Chronic obstructive pulmonary disease, unspecified COPD type J44.9 and Diabetic polyneuropathy associated with type 2 diabetes mellitus E11.42 [place] [address] [address] [id number] [place] [address] 50377- 8754 Sep, Paranoid schizophrenia F20.0 [place] [address] [id number] [place] [address] 99801- 2215 Sep, Paranoid schizophrenia F20.0 and BMI 45.0-49.9, adult Z68.42 [place] [address] [id number] [place] [address] 73483- 0867 Sep, Schizoaffective disorder, depressive type F25.1 [place] [address] [id number] [place] [address] 68950- 8304 Sep, [facility] [address] [place] [address] 21708- 5951 Sep, Paranoid schizophrenia F20.0 [facility] [id number] [place] [address] 48294- 5114 Sep, [facility] [id number] [place] [address] 45128- 2033 Sep, Hypothyroidism (acquired) E03.9 [facility] [id number] [place] [address] 22487- 8847 Sep, [facility] [address] [place] [id number] [place] [address] 09860- 0301 August, Schizoaffective disorder, depressive type F25.1 [facility] [id number] [place] [address] 30674- 3625 August, [facility] [id number] [place] [address] 11015- 7369 August, [facility] [id number] [place] [address] 66540- 6746 August, [facility] [id number] [place] [address] 68380- 3292 August, Paranoid schizophrenia F20.0 [facility] [address] [place] [address] 25767- 2623 August, History of lupus Z87.39 and Chronic pain syndrome G89.4 [facility] [address] [place] [address] 15919- 5452 August, [facility] [address] [id number] [place] [address] 69449 -3123 August, Seasonal allergic rhinitis, unspecified trigger J30.2 and BMI 45.0-49.9, adult Z68.42 [facility] [address] [id number] [place] [address] 32100- 7725 Jul, Schizoaffective disorder, depressive type F25.1 [facility] [address] 45647- 7532 Jul, [facility] [address] 32702- 7896 Jul, Hypothyroidism (acquired) E03.9 [facility] [address] 36421- 7857 Jul, Chronic obstructive pulmonary disease, unspecified COPD type J44.9 and Type 2 diabetes mellitus without complication, without long-term current use of insulin E11.9 [place] [address] 75277- 3560 Jul, Paranoid schizophrenia F20.0 [place] [address] 91031- 7599 Jun, Hypothyroidism (acquired) E03.9 and Seasonal allergic rhinitis due to pollen J30.1 [facility] [address] 43981 -6842 Jun, Shortness of breath at rest R06.02 ; COPD exacerbation J44.1 and BMI 45.0-49.9, adult Z68.42 [place] [address] 58152- 0603 Jun, [facility] [address] 84068- 0442 Jun, Paranoid schizophrenia F20.0 ; Depression with anxiety F41.8 and BMI 45.0-49.9, adult Z68.42 [facility] [address] 56833- 3895 20 Jun, 2017 Schizoaffective disorder, depressive type F25.1 [facility] [address] [id number] 13 Jun, 2017 Dental caries K02.9 [facility] [address] 91507- 9069 Jun, Paranoid schizophrenia F20.0 [facility] [address] [place] [address] May, Migraine without aura and without status migrainosus, not intractable G43.009 ; DM neuro manif type II E11.49 and Type 2 diabetes mellitus without complication, without long-term current use of insulin E11.9 [facility] [address] [place] [id number] [place] [address] 18607- 0654 May, Migraine without aura and without status migrainosus, not intractable G43.009 [facility] [address] [place] [address] [id number] [place] [address] May, Depression with anxiety F41.8 [facility] [address] [id number] [place] [address] [id number] May, [facility] [address] 22759- 9284 May, [facility] [address] [place] [address] [id number] [place] [address] 70152- 5847 May, [facility] [address] [place] [id number] [place] [address] May, Hypothyroidism (acquired) E03.9 [facility] [address] [place] [id number] [place] [address] 73099- 1260 May, Paranoid schizophrenia F20.0 [facility] [address] [place] [id number] [place] [address] 23635- 4738 May, Type 2 diabetes mellitus without complication, [...] N32.81 and Controlled substance agreement signed Z79.899 [facility] [address] [address] [id number] [place] [address] 04299- 4545 May, Controlled substance agreement signed Z79.899 [facility] [address] 68131- 2969 Apr, [facility] [address] [id number] Apr, Dental examination Z01.20 [place] [address] 16969- 0456 Apr, Paranoid schizophrenia F20.0 [facility] [address] [place] [id number] [place] [address] 96319- 2211 Apr, Hypertension, unspecified type I10 [facility] [address] [place] [address] [id number] [place] [address] 39763- 4220 Apr, Paranoid schizophrenia F20.0 [facility] [address] 99469- 6889 Apr, [facility] [address] [place] [id number] [place] [address] 19253- 8122 Apr, Tobacco abuse Z72.0 [facility] [id number] [place] [address] 98478- 1665 Apr, [facility] [address] [place] [id number] [place] [address] 72339- 6153 Mar, [facility] [address] 91836- 7331 Mar, Paranoid schizophrenia F20.0 and BMI 45.0-49.9, adult Z68.42 [facility] [address] [place] [id number] [place] [address] 31350- 9039 Mar, Schizoaffective disorder, depressive type F25.1 [facility] [address] 44390- 7941 Mar, [facility] [address] 19890- 0358 Mar, Hypothyroidism, unspecified type E03.9 [place] [address] 02554- 8432 Mar, Schizoaffective disorder, depressive type F25.1 [facility] [address] 96354 -5004 Feb, Gastroenteritis K52.9 and BMI 45.0-49.9, adult Z68.42 [place] [address] 01858- 8603 Feb, [place] [address] 58747- 7098 Feb, [place] [address] 92837- 0585 Feb, [place] [address] 78348- 0987 16 Feb, 2017 [place] [address] 13731- 9830 Feb, Paranoid schizophrenia F20.0 [place] [address] 38880- 3040 06 Feb, 2017 Gastroesophageal reflux disease without esophagitis K21.9 ; Other seasonal allergic rhinitis J30.2 ; Other allergic rhinitis J30.89 ; Tobacco abuse Z72.0 and BMI 40.0-44.9, adult Z68.41 [place] [address] 40814- 4611 03 Feb, 2017 Onychomycosis B35.1 ; Callus of foot L84 and DM neuro manif type II E11.49 [place] [address] [place] [address]- 3824 31 Jan, 2017 Chronic allergic rhinitis J30.9 [facility] [address] 63925- 0247 16 Jan, 2017 [facility] [address] 21328- 7006 13 Jan, 2017 Schizoaffective disorder, depressive type F25.1 [facility] [address] 13775- 0805 10 Jan, 2017 [facility] [address] 70570 -4623 07 Jan, 2017 Sore throat J02.9 and Seasonal allergic rhinitis due to other allergic trigger J30.89 [place] [address] 35592- 3492 04 Jan, 2017 [facility] [address] 19742- 7243 04 Jan, 2017 [facility] [address] 11709 -0891 Jan, Chronic allergic rhinitis J30.9 [facility] [address] 68753- 3214 27 Dec, 2016 Paranoid schizophrenia F20.0 ; Primary insomnia F51.01 and Schizoaffective disorder, depressive type F25.1 [facility] [address] 63992- 5195 21 Dec, 2016 Chronic pain syndrome G89.4 ; Cervicalgia of occipito- atlanto-axial region M54.2 ; Menopausal syndrome (hot flashes) N95.1 and Encounter for immunization Z23 [place] [address] 35813- 1288 14 Dec, 2016 [facility] [address] 39745- 8586 13 Dec, 2016 [facility] [address] [place] [address]- 0536 Dec, Paranoid schizophrenia F20.0 [facility] [address] [place] [id number] [place] [address] 96306- 9638 Dec, Schizoaffective disorder, depressive type F25.1 [facility] [address] [id number] [place] [address] 20199- 8740 Nov, Hypothyroidism, unspecified type E03.9 [facility] [address] [address] [id number] [place] [address] 42082 -2075 Nov, Acute seasonal allergic rhinitis due to other allergen J30.89 [facility] [address] 53563- 3235 Nov, [facility] [address] [place] [id number] [place] [address] 28345- 8619 Nov, Hypothyroidism, unspecified type E03.9 and Other elevated white blood cell (WBC) count D72.828 [place] [address] [place] [id number] [place] [address] 06954- 0072 Nov, Schizoaffective disorder, depressive type F25.1 [place] [address] [place] [id number] [place] [address] 44812- 1148 Nov, Paranoid schizophrenia F20.0 [facility] [address] [place] [id number] [place] [address] 99584- 0915 Nov, Type 2 diabetes mellitus without complication, without long- term current use of insulin E11.9 ; Morbid obesity due to excess calories E66.01 and Chronic pain syndrome G89.4 [place] [address] [place] [id number] [place] [address] 29611- 6705 Oct, Paranoid schizophrenia F20.0 [facility] [address] [place] [address] [id number] [place] [address] 56758- 9412 Oct, [facility] [address] [place] [address] [id number] [place] [address] 73588- 4268 Oct, Schizoaffective disorder, depressive type F25.1 [facility] [address] [id number] [place] [address] 16126- 5013 Oct, Hypothyroidism, unspecified type E03.9 and Other elevated white blood cell (WBC) count D72.828 [facility] [address] [id number] [place] [address] 83974- 8887 Oct, Morbid obesity due to excess calories E66.01 ; Chronic obstructive pulmonary disease, unspecified COPD type J44.9 ; History of lupus Z87.39 ; Hypothyroidism, unspecified type E03.9 ; Gastroesophageal reflux disease without esophagitis K21.9 ; Primary insomnia F51.01 and Chronic pain syndrome G89.4 [place] [address] [place] [id number] [place] [address] 28407- 4330 Sep, [place] [address] [place] [id number] [place] [address] 04822- 7766 Sep, [facility] [address] [place] [id number] [place] [address] 00220- 9850 Sep, [facility] [address] [id number] [place] [address] 68195- 3078 Sep, Paranoid schizophrenia F20.0 [facility] [id number] [place] [address] 08522- 0733 Sep, [facility] [address] [id number] [place] [address] 10316- 4651 Sep, Paranoid schizophrenia F20.0 [facility] [id number] [place] [address] 72753- 2447 Sep, [facility] [address] [address] [id number] [place] [address] 35391- 0006 August, Paranoid schizophrenia F20.0 [facility] [id number] [place] [address] 96730- 1263 Jul, [facility] [address] [id number] [place] [address] 56828- 1750 18 Jul, 2017 Type 2 diabetes mellitus without complication, without long- term current use of insulin E11.9 ; Morbid obesity due to excess calories E66.01 ; Depression with anxiety F41.8 ; Hypothyroidism, unspecified type E03.9 ; Seasonal allergic rhinitis due to other allergic trigger J30.89 ; Pain, dental K08.89 and Gastroesophageal reflux disease without esophagitis K21.9 [facility] [id number] [place] [address] [id number] 12 Jul, 2016 Dental examination Z01.20 [place] [address] 45974- 2707 07 Jul, 2016 Paranoid schizophrenia F20.[address] 47500- 8849 13 Jun, 2016 Paranoid schizophrenia F20.0 and Depression with anxiety F41.[address] 14048- 6322 Jun, Paranoid schizophrenia F20.0 and Depression with anxiety F41.8 [place] [address] [id number] [place] [address] 88694- 0213 Jun, [address] 90274- 2656 Jun, [facility] [place] [id number] [place] [address] 55794 -9476 Jun, Seasonal allergic rhinitis due to other allergic trigger J30.89 [facility] [place] [id number] [place] [address] 72532 -6935 May, Sore throat J02.9 ; Other viral agents as the cause of diseases classified elsewhere B97.89 and Acute upper respiratory infection, unspecified J06.9 [place] [id number] [place] [address] 38994- 2697 May, Paranoid schizophrenia F20.0 and Depression with anxiety F41.8 [place] [id number] [place] [address] 52931- 4172 Apr, Other seasonal allergic rhinitis J30.2 [place] [id number] [place] [address] 91968- 9149 Apr, Paranoid schizophrenia F20.0 and Depression with anxiety F41.8 [facility] [id number] [place] [address] 55203 -7717 Apr, Bronchitis J40 and Sore throat J02.9 [place] [address] 60817- 8288 Apr, Type 2 diabetes mellitus without complication, without long- term current use of insulin E11.9 [facility] [id number] [place] [address] 53962 -5012 Apr, Bronchitis J40 [place] [address] 89980- 5146 Apr, [place] [address] 85720- 3344 Apr, [place] [id number] [place] [address] 80930- 2173 Mar, Type 2 diabetes mellitus without complication, [...] Other seasonal allergic rhinitis J30.2 [place] [id number] [place] [address] 55804- 3411 Mar, Paranoid schizophrenia F20.0 and Depression with anxiety F41.8 [place] [id number] [place] [address] 27719- 7763 Feb, [place] [id number] [place] [address]46 Feb, [facility] [address] [place] [address] 37312- 2706 Feb, [facility] [id number] [place] [address] 91176- 4468 Feb, [facility] [id number] [place] [address] 44272- 2412 Feb, Type 2 diabetes mellitus without complication, without long- term current use of insulin E11.9 ; ARIAS on CPAP G47.33 and Preoperative evaluation to rule out surgical contraindication Z01.818 [facility] [id number] [place] [address] 101339- 7719 09 Feb, 2016 Paranoid schizophrenia F20.0 and Depression with anxiety F41.8 [facility] [id number] [place] [address] 99595- 0029 Jan, [facility] [id number] [place] [address] 17837- 2192 Jan, Paranoid schizophrenia F20.0 and Depression with anxiety F41.8 [facility] [id number] [place] [address] 37260- 0233 Jan, [facility] [address] [place] [address] 44260- 6392 Jan, Muscle strain T14.8 [facility] [id number] [place] [address] 25968- 8848 Jan, Paranoid schizophrenia F20.0 [facility] [address] [place] [address] 81748- 2902 Jan, [facility] [id number] [place] [address] 79329- 6111 Jan, Paranoid schizophrenia F20.0 and Depression with anxiety F41.8 [facility] [id number] [place] [id number] Jan, [facility] [id number] [address] Jan, [facility] [id number] [place] [address] 28 Dec, 2015 [facility] [id number] [place] [address] Dec, Paranoid schizophrenia F20.0 [facility] [id number] [place] [id number] [id number] 16 Dec, 2015 Paranoid schizophrenia F20.0 and Depression with anxiety F41.8 [facility] [id number] [place] [address] 27951- 2808 Nov, [facility] [id number] [place] [address] 03406- 9078 Nov, Paranoid schizophrenia F20.0 [facility] [id number] [place] [address] 02005- 0250 Nov, Paranoid schizophrenia F20.0 and Depression with anxiety F41.8 [facility] [address] [address] Nov, Type 2 diabetes mellitus without complication, without long- term current use of insulin E11.9 ; Paranoid schizophrenia F20.0 ; Chronic obstructive pulmonary disease, unspecified COPD type J44.9 ; Morbid obesity due to excess calories E66.01 and Parkinsonian tremor G20 [facility] [address], [place] [address] Nov, [facility] [address], [place] [address] 6526 Oct, Paranoid schizophrenia F20.0 [facility] [address], [place] [address] 0707 Oct, Paranoid schizophrenia F20.0 [facility] [address], [place] [address]- 0583 Oct, Paranoid schizophrenia F20.0 and Depression with anxiety F41.8 [place] [address] [address] Oct, [place] [id number] [place] [address] 55272- 7156 Oct, Paranoid schizophrenia F20.0 and Depression with anxiety F41.8 [place] [id number] [place] [address] 12028- 2847 Oct, Nasal sore J34.89 [place] [id number] [place] [address] 62185- 6641 Oct, Type 2 diabetes mellitus without complication, without long- term current use of insulin E11.9 ; Depression with anxiety F41.8 ; Hypothyroidism, unspecified type E03.9 and History of lupus Z87.39 [place] [id number] [place] [address] 37324- 1700 Oct, [place] [id number] [place] [address] 76362- 3495 Oct, Type 2 diabetes mellitus without complication, [...] and History of lupus Z87.39 [place] [id number] [place] [address] 33436- 9492 Feb, [place] [id number] [place] [address] 89072- 7142 Jan, [place] [id number] [place] [address] 98307- 5697 Jan, [place] [address] [facility] [id number] [place] [address]- 6140 Jan, [facility] [address] [facility] [id number] [place] [address]- 8591 Dec, [facility] [address] [facility] [id number] [place] [address]- 2209 Nov, [facility] [address] [facility] [id number] [place] [address]- 4575 Nov, [facility] [address] [facility] [id number] [place] [address]- 0450 Oct, [facility] [id number] [place] [address]- 3511 Oct, [facility] [id number] 9745 Oct, [facility] [id number] [place] [address]- 4321 Sep, Allergic rhinitis 477.9 [facility] [id number] [place] [address]- 7330 Sep, Rhinitis, allergic 477.9 [facility] [address] [id number] [address]- 2627 Sep, Rhinitis, allergic 477.9 [facility] [address] [id number] [address]- 9345 Sep, [facility] [address] [id number] [address]- 3689 August, [facility] [address] [id number] [address]- 1663 August, [facility] [address] [id number] [address]- 9634 August, [facility] [address] [id number] 0872 Jul, [facility] [place] [facility] [address] [id number] [place] [address]- 2247 14 Jul, 2014 [facility] [place] [facility] [address] [id number] [place] [address]- 8536 13 Jul, 2014 [facility] [place] [facility] [address] [id number] [place] [address]- 5909 16 Jun, 2014 [facility] [place] [facility] [address] [id number] [place] [address]- 9008 16 Jun, 2014 [facility] [place] [facility] [address] [id number] [place] [address]- 0155 Jun, [facility] [place] [facility] [address] [id number] [place] [address]- 8925 Jun, [facility] [place] [facility] [address] [id number] [place] [address]- 0314 Jun, [facility] [place] [facility] [address] [id number] [place] [address]- 8988 Jun, [facility] [place] [facility] [address] [id number] [place] [address]- 5530 Jun, [facility] [place] [facility] [address] [id number] [place] [address]- 2009 Jun, [facility] [place] [facility] [address] [id number] [place] [address]- 2906 May, [facility] [place] [facility] [address] [id number] [place] [address]- 4673 May, [facility] [place] [facility] [address] [id number] [place] [address]- 9963 May, [facility] [place] [facility] [address] [id number] [place] [address]- 2326 May, [facility] [place] [facility] [address] [id number] [place] [address]- 5947 Apr, [facility] [place] [facility] [address] [id number] [place] [address]- 2075 Mar, [facility] [place] [facility] [address] [id number] [place] [address]- 9636 Mar, [facility] [place] [facility] [address] [id number] [place] 1327 Mar, [facility] [place] [facility] [address] [id number] [place] [address]- 1278 Mar, [facility] [place] [facility] [address] [id number] [place] [address]- 5103 Mar, [facility] [place] [facility] [address] [id number] [place] [address]- 1986 Mar, [facility] [place] [facility] [address] [id number] [place] [address]- 4897 Mar, [facility] [place] [facility] [address] [id number] [place] [address]- 1547 Mar, [facility] [place] [facility] [address] [id number] [place] [address]- 8483 Mar, [facility] [place] [facility] [address] [id number] [place] [address]- 8234 Feb, [facility] [place] [facility] [address] [id number] [place] [address]- 5496 Feb, [facility] [place] [facility] [address] [id number] [place] [address]- 3423 Feb, [facility] [place] [facility] [address] [id number] [place] [address]- 4915 17 Feb, 2014 [facility] [place] [facility] [address] [id number] [place] [address]- 1721 Feb, [facility] [place] [facility] [address] [id number] [place] [address]- 4135 Feb, [facility] [place] [facility] [address] [id number] [place] [address]- 1011 12 Feb, 2014 [facility] [place] [facility] [address] [id number] [place] [address]- 7752 12 Feb, 2014 [facility] [place] [facility] [address] [id number] [place] [address]- 8091 23 Jan, 2014 [facility] [place] [facility] [address] [id number] [place] [address]- 9941 23 Jan, 2014 [facility] [place] [facility] [address] [id number] [place] [address]- 7408 16 Jan, 2014 [facility] [place] [facility] [address] [id number] [place] [address]- 6086 16 Jan, 2014 [facility] [place] [facility] [address] [id number] [place] [address]- 1645 15 Jan, 2014 [facility] [place] [facility] [address] [id number] [place] [address]- 9816 15 Jan, 2014 [facility] [place] [facility] [address] [id number] [place] [address]- 2270 14 Jan, 2014 [facility] [place] [facility] [address] [id number] [place] [address]- 4824 14 Jan, 2014 [facility] [place] [facility] [address] [id number] [place] [address]- 5600 14 Jan, 2014 [facility] [place] [facility] [address] [id number] [place] [address]- 7723 14 Jan, 2014 [facility] [place] [facility] [address] [id number] [place] [address]- 3722 18 Dec, 2013 [facility] [place] [facility] [address] [id number] [place] [address]- 3069 18 Dec, 2013 [facility] [place] [facility] [address] [id number] [place] [address]- 1266 10 Dec, 2013 [facility] [place] [facility] [address] [id number] [place] [address]- 7210 10 Dec, 2013 [facility] [place] [facility] [address] [id number] [place] [address]- 9820 Nov, [facility] [place] [facility] [address] [id number] [place] [address]- 4446 Nov, [facility] [place] [facility] [address] [id number] [place] [address]- 6433 Nov, [facility] [place] [facility] [address] [id number] [place] [address]- 5828 Nov, [facility] [place] [facility] [address] [id number] [place] [address]- 9280 Nov, [facility] [place] [facility] [address] [id number] [place] [address]- 2227 Oct, [facility] [place] [facility] [address] [id number] [place] [address]- 6466 Oct, [facility] [place] [facility] [address] [id number] [place] [address]- 5187 Oct, [facility] [place] [facility] [address] [id number] [place] [address]- 9273 Oct, [facility] [place] [facility] [address] [id number] [place] [address]- 9734 Sep, [facility] [place] [facility] [address] [id number] [place] [address]- 2512 Sep, [facility] [place] [facility] [address] [id number] [place] [address]- 0485 Sep, [facility] [place] [facility] [address] [id number] [place] [address]- 1966 Sep, [facility] [place] [facility] [address] [id number] [place] [address]- 4332 Sep, [facility] [place] [facility] [address] [id number] [place] [address]- 4398 Sep, [facility] [place] [facility] [address] [id number] [place] [address]- 9138 Sep, [facility] [place] [facility] [address] [id number] [place] [address]- 3030 Sep, [facility] [place] [facility] [address] [id number] [place] [address]- 0586 August, [facility] [place] [facility] [address] [id number] [place] [address]- 8277 August, [facility] [place] [facility] [address] [id number] [place] [address]- 6728 August, [facility] [place] [facility] [address] [id number] [place] [address]- 7763 August, [facility] [place] [facility] [address] [id number] [place] [address]- 6428 August, [facility] [place] [facility] [address] [id number] [place] [address]- 4819 August, [facility] [place] [facility] [address] [id number] [place] [address]- 2426 August, [facility] [place] [facility] [address] [id number] [place] [address]- 4016 Jul, [facility] [place] [facility] [address] [id number] [place] [address]- 7086 Jul, [facility] [place] [facility] [address] [id number] [place] [address]- 6237 Jul, [facility] [place] [facility] [address] [id number] [place] [address]- 7506 Jul, [facility] [place] [facility] [address] [id number] [place] [address]- 1663 28 Jul, 2013 [facility] [place] [facility] [address] [id number] [place] [address]- 6931 Jul, [facility] [place] [facility] [address] [id number] [place] [address]- 4444 2013 [facility] [place] [facility] [address] [id number] [place] [address]- 3421 Jul, [facility] [place] [facility] [address] [id number] [place] [address]- 5956 Jul, [facility] [place] [facility] [address] [id number] [place] [address]- 8535 Jul, [facility] [place] [facility] [address] [id number] [place] [address]- 1788 Jul, [facility] [place] [facility] [address] [id number] [place] [address]- 4079 Jul, [facility] [place] [facility] [address] [id number] [place] [address]- 3282 Jun, [facility] [place] [facility] [address] [id number] [place] [address]- 4323 Jun, [facility] [place] [facility] [address] [facility] [id number] [place] [address]- 7680 Jun, [facility] [place] [facility] [address] [id number] [place] [address]- 8566 Jun, [facility] [place] [facility] [address] [id number] [place] [address]- 5423 Jun, [facility] [place] [facility] [address] [id number] [place] [address]- 1003 May, [facility] [place] [facility] [address] [facility] [id number] [place] [address]- 1036 May, [facility] [place] [facility] [address] [id number] [place] [address]- 8929 May, [facility] [place] [facility] [address] [id number] [place] [address]- 2729 May, [facility] [place] [facility] [address] [id number] [place] [address]- 0680 May, [facility] [place] [facility] [address] [facility] [id number] [place] 4461 May, [facility] [place] [facility] [address] [id number], [place] [address]- 4027 May, [facility] [address] [id number] [place] [address]- 4631 May, [facility] [address] [id number] [place] 3246 Mar, [facility] [address] [facility] [id number] [place] [address]- 7209 Mar, [facility] [place] [facility] [address] [id number] [place] [address]- 5700 Mar, [facility] [address] [id number] [place] [address]- 1819 Mar, [facility] [place] [facility] [address] [facility] [id number] [place] [address]- 8430 Mar, [facility] [address] [facility] [id number] [place] [address]- 1972 Mar, [facility] [place] [facility] [address] [facility] [id number] [place] [address]- 3455 Feb, [facility] [address] [facility] [id number] [place] [address]- 4810 Feb, [facility] [place] [facility] [address] [facility] [id number] [place] [address]- 7606 Jan, [facility] [place] [facility] [address] [facility] [id number] [place] [address]- 0777 Jan, [facility] [place] [facility] [address] [id number], [place] [address]- 2944 Jan, [facility] [place] [facility] [address] [id number], [place] [address]- 0543 Jan, [facility] [place] [facility] [address] [facility] [id number], [place] [address]- 0113 Jan, [facility] [place] [facility] [address] [facility] [id number], [place] [address]- 6353 Jan, [facility] [place] [facility] [address] [id number] [place] [address]- 4682 Jan, [facility] [place] [facility] [address] [id number] [place] [address]- 8581 Jan, [facility] [place] [facility] [address] [id number] [place] [address]- 4922 Jan, [facility] [place] [facility] [address] [id number] [place] [address]- 9210 Jan, [facility] [place] [facility] [address] [id number] [place] [address]- 0278 Dec, [facility] [place] [facility] [address] [id number] [place] [address]- 4295 Nov, [facility] [place] [facility] [address] [id number] [place] [address]- 9913 Nov, [facility] [place] [facility] [address] [id number] [place] [address]- 6540 Nov, [facility] [place] [facility] [address] [id number] [place] [address]- 2508 Oct, [facility] [place] [facility] [address] [id number] [place] [address]- 4406 Oct, [facility] [place] [facility] [address] [id number] [place] [address]- 4912 August, [facility] [place] [facility] [address] [id number] [place] [address]- 6885 Apr, [facility] [place] [facility] [address] [id number] [place] [address]- 6954 Apr, [facility] [place] [facility] [address] [id number] [place] [address]- 0915 Feb, [facility] [place] [facility] [address] [id number] [place] [address]- 8087 Feb, [facility] [place] [facility] [address] [id number] [place] [address]- 6072 Dec, [facility] [address] [facility] [id number] [place] [address]- 7876 Dec, [facility] [address] [facility] [id number], [place] [address]- 6136 Oct, [facility] [address] [facility] [id number], [place] [address]- 4136 Oct, [facility] [address] [facility] [id number], [place] [address]- 4926 Oct, [facility] [address] [facility] [id number], [place] [address]- 5536 Jul, IMMUNIZATIONS No Known Immunizations SOCIAL HISTORY Never Assessed REASON FOR VISIT med refill PLAN OF CARE VITAL SIGNS MEDICATIONS Medication Instructions Dosage Frequency Start Date End Date Duration Status Levothyroxine Sodium 175 MCG Orally Once a day 1 tablet 24h 30 days Active RESULTS No Results PROCEDURES [...]
--- OUTSIDE RECORDS SUMMARY | 2018-09-02 13:43 | XMS REPORT ---
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 Name Role Phone SOTO STRICKLAND Unavailable PROBLEMS Type Condition ICD9-CM Code YXM43-QM Code Onset Dates Condition Status SNOMED Code Problem OAB (overactive bladder) N32.81 Active 366872610 Problem Depression with anxiety F41.8 Active 069933935 Problem Other seasonal allergic rhinitis J30.2 Active 228128180 Problem Chronic obstructive pulmonary disease, unspecified COPD type J44.9 Active 62895124 Problem Tobacco abuse Z72.0 Active 748170193 Problem Morbid obesity due to excess calories E66.01 Active 649887460 Problem Dyslipidemia E78.5 Active 720743644 Problem Hypothyroidism (acquired) E03.9 Active 815143666 Problem Essential hypertension I10 Active 68872246 Problem Diabetic polyneuropathy associated with type 2 diabetes mellitus E11.42 Active 957629199 Problem Type 2 diabetes mellitus with diabetic neuropathic arthropathy, 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 Active 768630372 Problem Type 2 diabetes mellitus without complication, without long-term current use of insulin E11.9 Active 135067764 Problem Paranoid schizophrenia F20.0 Active 70328255 Problem Chronic pain syndrome G89.4 Active 983913742 Problem Migraine without aura and without status migrainosus, not intractable G43.009 Active 974174228 Problem Gastroesophageal reflux disease, esophagitis presence not specified K21.9 Active 201496548 Problem Seasonal allergic rhinitis due to pollen J30.1 Active 78659927 Problem COPD exacerbation J44.1 Active 672344027 Problem Seasonal allergic rhinitis due to other allergic trigger J30.89 Active 072852659 Problem Schizoaffective disorder, depressive type F25.1 Active 30834925 Problem History of lupus Z87.39 Active 369429578 Problem Gastroesophageal reflux disease without esophagitis K21.9 Active 484266687 Problem Menopausal syndrome (hot flashes) N95.1 Active 289366867 Problem Other allergic rhinitis J30.89 Active 785093257 Problem Primary insomnia F51.01 Active 3691305 Problem DM neuro manif type II E11.49 Active 72066630 ALLERGIES No Information ENCOUNTERS Encounter Location Date Diagnosis [place] [id number] [place] [address] 54601- 0013 Dec, [place] [address] [place] [id number] [place] [address] 20992- 7206 Nov, [place] [address] [id number] [place] [address] 46038- 4424 Nov, Schizoaffective disorder, depressive type F25.1 [place] [address] [place] [id number] [place] [address] 11601- 0652 Nov, Well woman exam Z01.419 ; BMI 45.0-49.9, adult Z68.42 ; Screening breast examination Z12.31 and Dietary counseling and surveillance Z71.3 [place] [address] [place] [id number] [place] [address] 71561- 9738 Nov, Paranoid schizophrenia F20.0 [place] [address] [place] [id number] [place] [address] 63109- 8311 Nov, Gastroesophageal reflux disease, esophagitis presence not specified K21.9 [place] [id number] [place] [address] 74514- 6084 Oct, Paranoid schizophrenia F20.0 [id number] [address] Oct Chronic pain syndrome G89.4 and Schizoaffective disorder, depressive type F25.1 [place] [address] [place] [id number] [place] [address] 22533- 0266 Oct, Chronic pain syndrome G89.4 and Schizoaffective disorder, depressive type F25.1 [place] [address] [address] 97[address] Oct, Type 2 diabetes mellitus without complication, without long- term current use of insulin E11.9 [place] [id number] [place] [address] 54084- 6530 12 Oct, 2017 Essential hypertension I10 and DM neuro manif type II E11.49 [facility] [address] [place] [id number] [place] [address] 42578- 8457 Oct, [place] [address] [place] [id number] [place] [address] 65817- 5799 Oct, Schizoaffective disorder, depressive type F25.1 and BMI 45.0 -49.9, adult Z68.42 [place] [address] [place] [id number] [place] [address] 34257- 5040 Oct, [place] [address] [place] [id number] [place] [address] 34653- 7527 Oct, Paranoid schizophrenia F20.0 [place] [address] [place] [id number] [place] [address] 14712- 3025 Oct, Type 2 diabetes mellitus with diabetic neuropathic arthropathy, 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 ; Essential hypertension I10 ; Hypothyroidism (acquired) E03.9 ; Chronic obstructive pulmonary disease, unspecified COPD type J44.9 and Diabetic polyneuropathy associated with type 2 diabetes mellitus E11.42 [place] [address] [place] [id number] [place] [address] 53469- 8056 Sep, Paranoid schizophrenia F20.0 [place] [address] [place] [id number] [place] [address] 02521- 6881 Sep, Paranoid schizophrenia F20.0 and BMI 45.0-49.9, adult Z68.42 [place] [address] [place] [id number] [place] [address] 78849- 2267 Sep, Schizoaffective disorder, depressive type F25.1 [place] [address] [place] [id number] [place] [address] 53456- 5071 Sep, [place] [address] [place] [id number] [place] [address] 37031- 6003 Sep, Paranoid schizophrenia F20.0 [facility] [address] [address] 66[address] Sep, [facility] [address] [place] [id number] [place] [address] 17138- 2887 Sep, Hypothyroidism (acquired) E03.9 [facility] [address] [place] [id number] [place] [address] 37049- 1372 Sep, [facility] [address] [place] [id number] [place] [address] 85064- 6475 August, Schizoaffective disorder, depressive type F25.1 [facility] [address] [place] [id number] [place] [address] 77632- 9867 August, [facility] [address] [place] [id number] [place] [address] 13962- 6435 August, [facility] [address] [place] [id number] [place] [address] 85343- 8952 August, [facility] [address] [place] [id number] [place] [address] 77060- 5151 August, Paranoid schizophrenia F20.0 [facility] [address] [place] [id number] [place] [address] 58834- 9725 August, History of lupus Z87.39 and Chronic pain syndrome G89.4 [facility] [address] [place] [id number] [place] [address] 42496- 2478 August, [facility] [id number] [place] [address] 35940 -6455 August, Seasonal allergic rhinitis, unspecified trigger J30.2 and BMI 45.0-49.9, adult Z68.42 [facility] [address] [address] 9267 Jul, Schizoaffective disorder, depressive type F25.1 [facility] [address] [place] [address] 11279- 4125 Jul, [facility] [address] 80288- 3163 13 Jul, 2017 Hypothyroidism (acquired) E03.9 [facility] [address] 54685- 3134 11 Jul, 2017 Chronic obstructive pulmonary disease, unspecified COPD type J44.9 and Type 2 diabetes mellitus without complication, without long-term current use of insulin E11.9 [place] [address] 72741- 9450 10 Jul, 2017 Paranoid schizophrenia F20.0 [place] [address] 01864- 2462 Jun, Hypothyroidism (acquired) E03.9 and Seasonal allergic rhinitis due to pollen J30.[address] [facility] [address] 67257 -4274 Jun, Shortness of breath at rest R06.02 ; COPD exacerbation J44.1 and BMI 45.0-49.9, adult Z68.42 [place] [address] 15596- 4959 Jun, [facility] [address] 79212- 8354 Jun, Paranoid schizophrenia F20.0 ; Depression with anxiety F41.8 and BMI 45.0-49.9, adult Z68.42 [facility] [address] 87286- 7092 Jun, Schizoaffective disorder, depressive type F25.1 [facility] [address] [id number] Jun, Dental caries K02.9 [facility] [address] 02184- 1736 12 Jun, 2017 Paranoid schizophrenia F20.0 [place] [address] [place] [address] [place] [address] 6115 May, Migraine without aura and without status migrainosus, not intractable G43.009 ; DM neuro manif type II E11.49 and Type 2 diabetes mellitus without complication, without long-term current use of insulin E11.9 [facility] [address] [place] [id number] [place] [address] 76019- 4114 May, Migraine without aura and without status migrainosus, not intractable G43.009 [facility] [address] [place] [id number] [place] [address] 95316- 2811 May, Depression with anxiety F41.8 [facility] [address] [id number] May, [facility] [address] 55730- 0789 May, [facility] [address] 47828- 9479 May, [facility] [address] 75397- 2097 May, Hypothyroidism (acquired) E03.9 [facility] [address] 38220- 9895 May, Paranoid schizophrenia F20.0 [facility] [address] [place] [id number] [place] [address] 30634- 4870 May, Type 2 diabetes mellitus without complication, [...] N32.81 and Controlled substance agreement signed Z79.899 [facility] [address] [place] [id number] [place] [address] 36026- 0196 May, Controlled substance agreement signed Z79.899 [facility] [address] [place] [id number] [place] [address] 03392- 8520 Apr, [facility] [address] [id number] Apr, Dental examination Z01.20 [facility] [address] [place] [id number] [place] [address] 85301- 2547 Apr, Paranoid schizophrenia F20.0 [facility] [address] [place] [id number] [place] [address] 72292- 3078 Apr, Hypertension, unspecified type I10 [facility] [address] [place] [id number] [place] [address] 85636- 0606 Apr, Paranoid schizophrenia F20.0 [facility] [address] [place] [id number] [place] [address] 08167- 1732 Apr, [facility] [address] [place] [id number] [place] [address] 85184- 7823 Apr, Tobacco abuse Z72.0 [facility] [address] [place] [id number] [place] [address] 07337- 9515 Apr, [facility] [address] [place] [id number] [place] [address] 52339- 5461 Mar, [facility] [address] [place] [id number] [place] [address] 54603- 2961 Mar, Paranoid schizophrenia F20.0 and BMI 45.0-49.9, adult Z68.42 [facility] [address] [place] [id number] [place] [address] 68348- 2273 Mar, Schizoaffective disorder, depressive type F25.1 [facility] [address] [place] [id number] [place] [address] 81081- 9347 Mar, [facility] [address] [place] [id number] [place] [address] 02922- 4730 Mar, Hypothyroidism, unspecified type E03.9 [facility] [address] [place] [id number] [place] [address] 33084- 7692 Mar, Schizoaffective disorder, depressive type F25.[address] [facility] [address] 91815 -7589 Feb, Gastroenteritis K52.9 and BMI 45.0-49.9, adult Z68.42 [place] [address] 32893- 5052 Feb, [place] [address] 56881- 5068 Feb, [place] [address] 50942- 4913 Feb, [place] [address] 40590- 0765 16 Feb, 2017 [place] [address] 34485- 0105 Feb, Paranoid schizophrenia F20.0 [place] [address] 05724- 2287 06 Feb, 2017 Gastroesophageal reflux disease without esophagitis K21.9 ; Other seasonal allergic rhinitis J30.2 ; Other allergic rhinitis J30.89 ; Tobacco abuse Z72.0 and BMI 40.0-44.9, adult Z68.41 [place] [address] 70117- 2780 Feb, Onychomycosis B35.1 ; Callus of foot L84 and DM neuro manif type II E11.49 [place] [address] [place] [id number] [place] [address] 19005- 3142 Jan, Chronic allergic rhinitis J30.9 [place] [address] [place] [id number] [place] [address] 45609- 6347 16 Jan, 2017 [facility] [address] 46973- 9252 Jan, Schizoaffective disorder, depressive type F25.1 [facility] [address] [place] [id number] [place] [address] 47614- 3985 10 Jan, [address] [facility] [address] 74033 -0409 07 Jan, 2017 Sore throat J02.9 and Seasonal allergic rhinitis due to other allergic trigger J30.89 [place] [address] 22993- 0775 04 Jan, 2017 [place] [address] 42984- 8320 04 Jan, [address] [facility] [address] 95762 -5867 Jan, Chronic allergic rhinitis J30.9 [facility] [address] [place] [id number] [place] [address] 84738- 3128 27 Dec, 2016 Paranoid schizophrenia F20.0 ; Primary insomnia F51.01 and Schizoaffective disorder, depressive type F25.1 [place] [address] [place] [id number] [place] [address] 47104- 9800 21 Dec, 2016 Chronic pain syndrome G89.4 ; Cervicalgia of occipito- atlanto-axial region M54.2 ; Menopausal syndrome (hot flashes) N95.1 and Encounter for immunization Z23 [facility] [address] [place] [id number] [place] [address] 28492- 4261 14 Dec, 2016 [place] [address] 45435- 5026 13 Dec, 2016 [place] [address] [place] [id number] [place] [address] 57389- 4022 08 Dec, 2016 Paranoid schizophrenia F20.0 [place] [address] [place] [id number] [place] [address] 33529- 9705 Dec, Schizoaffective disorder, depressive type F25.1 [place] [address] [place] [id number] [place] [address] 96533- 6909 Nov, Hypothyroidism, unspecified type E03.9 [facility] [address] [place] [id number] [place] [address] 26709 -3531 Nov, Acute seasonal allergic rhinitis due to other allergen J30.89 [facility] [address] [place] [id number] [place] [address] 20737- 4775 Nov, [place] [address] 02801- 6191 Nov, Hypothyroidism, unspecified type E03.9 and Other elevated white blood cell (WBC) count D72.828 [place] [address] 54765- 5544 Nov, Schizoaffective disorder, depressive type F25.1 [place] [address] [place] [id number] [place] [address] 02338- 8008 Nov, Paranoid schizophrenia F20.0 [place] [address] [place] [id number] [place] [address] 02438- 9828 Nov, Type 2 diabetes mellitus without complication, without long- term current use of insulin E11.9 ; Morbid obesity due to excess calories E66.01 and Chronic pain syndrome G89.4 [place] [address] [place] [id number] [place] [address] 87883- 3123 Oct, Paranoid schizophrenia F20.0 [place] [address] [place] [id number] [place] [address] 55673- 8394 Oct, [place] [address] [place] [id number] [place] [address] 52341- 3307 Oct, Schizoaffective disorder, depressive type F25.1 [place] [address] [place] [id number] [place] [address] 86678- 4954 Oct, Hypothyroidism, unspecified type E03.9 and Other elevated white blood cell (WBC) count D72.828 [facility] [address] [place] [id number] [place] [address] 70471- 9253 Oct, Morbid obesity due to excess calories E66.01 ; Chronic obstructive pulmonary disease, unspecified COPD type J44.9 ; History of lupus Z87.39 ; Hypothyroidism, unspecified type E03.9 ; Gastroesophageal reflux disease without esophagitis K21.9 ; Primary insomnia F51.01 and Chronic pain syndrome G89.4 [place] [address] [place] [id number] [place] [address] 10234- 3186 Sep, [place] [address] [place] [id number] [place] [address] 03950- 1603 Sep, [place] [address] [place] [id number] [place] [address] 93717- 4605 Sep, [place] [address] [place] [id number] [place] [address] 78855- 1531 Sep, Paranoid schizophrenia F20.0 [place] [address] [place] [id number] [place] [address] 40877- 2259 Sep, [facility] [address] [place] [id number] [place] [address] 02533- 6745 Sep, Paranoid schizophrenia F20.0 [facility] [address] [place] [id number] [place] [address] 60100- 3897 Sep, [facility] [address] [place] [id number] [place] [address] 07679- 3483 August, Paranoid schizophrenia F20.0 [facility] [address] [place] [id number] [place] [address] 56851- 7693 Jul, [facility] [address] [place] [id number] [place] [address] 16191- 5716 Jul, Type 2 diabetes mellitus without complication, without long- term current use of insulin E11.9 ; Morbid obesity due to excess calories E66.01 ; Depression with anxiety F41.8 ; Hypothyroidism, unspecified type E03.9 ; Seasonal allergic rhinitis due to other allergic trigger J30.89 ; Pain, dental K08.89 and Gastroesophageal reflux disease without esophagitis K21.9 [facility] [address] [address] 12 Jul, 2016 Dental examination Z01.20 [place] [address] [place] [id number] [place] [address] 32164- 5793 07 Jul, 2016 Paranoid schizophrenia F20.0 [place] [address] [place] [id number] [place] [address] 94958- 1331 13 Jun, 2016 Paranoid schizophrenia F20.0 and Depression with anxiety F41.8 [place] [address] [place] [id number] [place] [address] 51314- 2562 Jun, Paranoid schizophrenia F20.0 and Depression with anxiety F41.8 [place] [address] [place] [id number] [place] [address] 53541- 3493 Jun, [place] [address] [place] [id number] [place] [address] 91639- 3004 Jun, [facility] [place] [id number] [place] [address] 53027 -4107 Jun, Seasonal allergic rhinitis due to other allergic trigger J30.[address] [facility] [place] [id number] [place] [address] 44323 -5028 May, Sore throat J02.9 ; Other viral agents as the cause of diseases classified elsewhere B97.89 and Acute upper respiratory infection, unspecified J06.9 [place] [address] [place] [id number] [place] [address] 46784- 8781 May, Paranoid schizophrenia F20.0 and Depression with anxiety F41.8 [place] [address] [place] [id number] [place] [address] 38541- 7483 Apr, Other seasonal allergic rhinitis J30.2 [place] [address] [place] [address] [place] [address]- 7646 Apr, Paranoid schizophrenia F20.0 and Depression with anxiety F41.8 [facility] [id number] [place] [address] 62004 -9870 Apr, Bronchitis J40 and Sore throat J02.9 [place] [address] 86912- 8350 Apr, Type 2 diabetes mellitus without complication, without long- term current use of insulin E11.9 [facility] [address] [id number] [place] [address] 12435 -0030 Apr, Bronchitis J40 [place] [address] 37252- 4328 Apr, [place] [address] 95776- 2274 Apr, [place] [address] 69774- 1135 Mar, Type 2 diabetes mellitus without complication, [...] R60.9 and Other seasonal allergic rhinitis J30.2 [place] [address] [place] [id number] [place] [address] 09830- 4865 Mar, Paranoid schizophrenia F20.0 and Depression with anxiety F41.8 [place] [address] [place] [id number] [place] [address] 66505- 9986 Feb, [place] [address] [id number] [place] [address] 61608- 9318 Feb, [place] [address] 38594- 2434 Feb, [facility] [id number] [place] [address] 99001- 7992 Feb, [facility] [address] [id number] [place] [address] 35209- 0888 Feb, Type 2 diabetes mellitus without complication, without long- term current use of insulin E11.9 ; ARIAS on CPAP G47.33 and Preoperative evaluation to rule out surgical contraindication Z01.818 [facility] [address] [id number] [place] [address] 12934- 2514 09 Feb, 2016 Paranoid schizophrenia F20.0 and Depression with anxiety F41.8 [facility] [address] [id number] [place] [address] 71739- 7107 Jan, [facility] [address] [id number] [place] [address] 45502- 8735 Jan, Paranoid schizophrenia F20.0 and Depression with anxiety F41.8 [facility] [id number] [place] [address] 30013- 6706 Jan, [facility] [address] [id number] [place] [address] 93061- 6231 Jan, Muscle strain T14.8 [facility] [address] [place] [address] 34751- 6340 Jan, Paranoid schizophrenia F20.0 [facility] [address] [id number] [place] [address] 91933- 1144 Jan, [facility] [id number] [place] [address] 05352- 0834 Jan, Paranoid schizophrenia F20.0 and Depression with anxiety F41.8 [facility] [id number] [place] [address] 41445- 8160 Jan, [facility] [id number] [place] [address] 58064- 8869 Jan, [facility] [address] [address]- 1796 28 Dec, 2015 [facility] [address] [address]- 3971 23 Dec, 2015 Paranoid schizophrenia F20.0 [facility] [address] [address]- 5534 16 Dec, 2015 Paranoid schizophrenia F20.0 and Depression with anxiety F41.8 [facility] [id number] [address] Nov, [facility] [id number] [place] [id number] Nov, Paranoid schizophrenia F20.0 [facility] [id number] [place] [phone] Nov, Paranoid schizophrenia F20.0 and Depression with anxiety F41.8 [facility] [id number] [address] Nov, Type 2 diabetes mellitus without complication, without long- term current use of insulin E11.9 ; Paranoid schizophrenia F20.0 ; Chronic obstructive pulmonary disease, unspecified COPD type J44.9 ; Morbid obesity due to excess calories E66.01 and Parkinsonian tremor G20 [facility] [id number] [address] Nov, [facility] [address] [address] [address] Oct, Paranoid schizophrenia F20.0 [facility] [address] [address] Oct, Paranoid schizophrenia F20.0 [facility] [address] [address] Oct, Paranoid schizophrenia F20.0 and Depression with anxiety F41.8 [facility] [id number] [place] [address] 09329- 0418 Oct, [place] [id number] [place] [address] 26856- 4653 Oct, Paranoid schizophrenia F20.0 and Depression with anxiety F41.8 [place] [id number] [place] [address] 78775- 6943 Oct, Nasal sore J34.89 [place] [id number] [place] [address] 76938- 1076 Oct, Type 2 diabetes mellitus without complication, without long- term current use of insulin E11.9 ; Depression with anxiety F41.8 ; Hypothyroidism, unspecified type E03.9 and History of lupus Z87.39 [place] [id number] [place] [address] 25265- 9020 Oct, [place] [id number] [place] [address] 17011- 6694 Oct, Type 2 diabetes mellitus without complication, [...] edema R60.9 and History of lupus Z87.39 [place] [id number] [place] [address] 18431- 4076 Feb, [place] [id number] [place] [address] 05091- 8460 Jan, [place] [id number] [place] [address] 37795- 9579 Jan, [place] [id number] [place] [address] 40627- 2214 Jan, [place] [address] [facility] [id number] [place] [address] 8012 Dec, [facility] [address] [address] Nov, [facility] [place] [facility] [address] [facility] [id number] [place] [address]- 6464 Nov, [facility] [id number] [place] [address], [place] [address]- [address] Oct, [facility] [address] [facility] [id number] [place] [address]- [address] Oct, [facility] [address] [place] [address]- 9353 Oct, [facility] [address] [place] [address]- 0343 Sep, Allergic rhinitis 477.9 [facility] [address] [place] [address]- 1233 Sep, Rhinitis, allergic 477.9 [facility] [address] [place] [address]- 4696 Sep, Rhinitis, allergic 477.9 [facility] [address] [place] [address]- 5231 Sep, [facility] [id number] [place] [address]- 0057 August, [facility] [id number] [place] [address]- 9500 August, [facility] [address] 1813 August, [facility] [address] [id number] 5260 Jul, [facility] [address] [id number] 3435 Jul, [facility] [place] [facility] [address] [id number] [place] [address]- 2020 Jul, [facility] [place] [facility] [address] [id number] [place] [address]- 1356 Jun, [facility] [place] [facility] [address] [id number] [place] [address] 16 Jun, 2014 [facility] [place] [facility] [address] [id number] [place] [address]- 8044 Jun, [facility] [place] [facility] [address] [id number] [place] [address]- 7351 Jun, [facility] [place] [facility] [address] [id number] [place] [address]- 9665 Jun, [facility] [place] [facility] [address] [facility] [id number] [place] [address]- 0510 Jun, [facility] [place] [facility] [address] [id number] [place] [address]- 0156 Jun, [facility] [place] [facility] [address] [id number] [place] [address]- 4571 Jun, [facility] [place] [facility] [address] [id number] [place] [address]- 7941 May, [facility] [place] [facility] [address] [id number] [place] [address]- 0834 May, [facility] [place] [facility] [address] [id number] [place] [address]- 9334 May, [facility] [place] [facility] [address] [id number] [place] [address]- 0083 May, [facility] [place] [facility] [address] [id number] [place] [address]- 9052 Apr, [facility] [place] [facility] [address] [id number] [place] [address]- 8622 Mar, [facility] [place] [facility] [address] [id number] [place] [address]- 2426 Mar, [facility] [place] [facility] [address] [id number] [place] [address]- 0388 Mar, [facility] [place] [facility] [address] [id number] [place] 8281 Mar, [facility] [place] [facility] [address] [id number] [place] [address]- 9320 Mar, [facility] [place] [facility] [address] [id number] [place] [address]- 1960 Mar, [facility] [place] [facility] [address] [id number] [place] [address]- 8261 Mar, [facility] [place] [facility] [address] [id number] [place] [address]- 9391 Mar, [facility] [place] [facility] [address] [id number] [place] [address]- 0218 Mar, [facility] [place] [facility] [address] [id number] [place] [address]- 4908 Feb, [facility] [place] [facility] [address] [id number] [place] [address]- 6274 Feb, [facility] [place] [facility] [address] [id number] [place] [address]- 1850 Feb, [facility] [place] [facility] [address] [id number] [place] [address]- 9163 Feb, [facility] [place] [facility] [address] [id number] [place] [address]- 6439 Feb, [facility] [place] [facility] [address] [id number] [place] [address]- 2540 Feb, [facility] [place] [facility] [address] [id number] [place] [address]- 9322 Feb, [facility] [place] [facility] [address] [id number] [place] [address]- 2511 Feb, [facility] [place] [facility] [address] [id number] [place] [address]- 4610 23 Jan, 2014 [facility] [place] [facility] [address] [id number] [place] [address]- 1343 23 Jan, 2014 [facility] [place] [facility] [address] [id number] [place] [address]- 0311 16 Jan, 2014 [facility] [place] [facility] [address] [id number] [place] [address]- 8777 16 Jan, 2014 [facility] [place] [facility] [address] [id number] [place] [address]- 3409 15 Jan, 2014 [facility] [place] [facility] [address] [id number] [place] [address]- 8336 15 Jan, 2014 [facility] [place] [facility] [address] [id number] [place] [address]- 7389 14 Jan, 2014 [facility] [place] [facility] [address] [id number] [place] [address]- 0045 14 Jan, 2014 [facility] [place] [facility] [address] [id number] [place] [address]- 3130 14 Jan, 2014 [facility] [place] [facility] [address] [id number] [place] [address]- 1347 14 Jan, 2014 [facility] [place] [facility] [address] [id number] [place] [address]- 6174 18 Dec, 2013 [facility] [place] [facility] [address] [id number] [place] [address]- 6362 18 Dec, 2013 [facility] [place] [facility] [address] [id number] [place] [address]- 4129 10 Dec, 2013 [facility] [place] [facility] [address] [id number] [place] [address]- 0905 10 Dec, 2013 [facility] [place] [facility] [address] [id number] [place] [address]- 3134 Nov, [facility] [place] [facility] [address] [id number] [place] [address]- 1994 Nov, [facility] [place] [facility] [address] [id number] [place] [address]- 1362 Nov, [facility] [place] [facility] [address] [id number] [place] [address]- 5643 Nov, [facility] [place] [facility] [address] [id number] [place] [address]- 6146 Nov, [facility] [place] [facility] [address] [id number] [place] [address]- 3627 Oct, [facility] [place] [facility] [address] [id number] [place] [address]- 2568 Oct, [facility] [place] [facility] [address] [id number] [place] [address]- 8309 Oct, [facility] [place] [facility] [address] [id number] [place] [address]- 7043 Oct, [facility] [place] [facility] [address] [id number] [place] [address]- 6428 Sep, [facility] [place] [facility] [address] [id number] [place] [address]- 2632 Sep, [facility] [place] [facility] [address] [id number] [place] [address]- 5817 Sep, [facility] [place] [facility] [address] [id number] [place] [address]- 2004 Sep, [facility] [place] [facility] [address] [id number] [place] [address]- 1232 Sep, [facility] [place] [facility] [address] [id number] [place] [address]- 1447 Sep, [facility] [place] [facility] [address] [id number] [place] [address]- 6164 Sep, [facility] [place] [facility] [address] [id number] [place] [address]- 2867 Sep, [facility] [place] [facility] [address] [id number] [place] [address]- 2659 August, [facility] [place] [facility] [address] [id number] [place] [address]- 2690 August, [facility] [place] [facility] [address] [id number] [place] [address]- 2678 August, [facility] [place] [facility] [address] [id number] [place] [address]- 9708 August, [facility] [place] [facility] [address] [id number] [place] [address]- 4300 August, [facility] [place] [facility] [address] [id number] [place] [address]- 2021 August, [facility] [place] [facility] [address] [id number] [place] [address]- 9796 August, [facility] [place] [facility] [address] [id number] [place] [address]- 9716 Jul, [facility] [place] [facility] [address] [id number] [place] [address]- 9770 Jul, [facility] [place] [facility] [address] [id number] [place] [address]- 3043 Jul, [facility] [place] [facility] [address] [id number] [place] [address]- 2358 Jul, [facility] [place] [facility] [address] [id number] [place] [address]- 6028 Jul, [facility] [place] [facility] [address] [id number] [place] [address]- 8722 Jul, [facility] [place] [facility] [address] [id number] [place] [address]- 8044 Jul, [facility] [place] [facility] [address] [id number] [place] [address]- 0321 Jul, [facility] [place] [facility] [address] [id number] [place] [address]- 4533 Jul, [facility] [place] [facility] [address] [id number] [place] [address]- 9651 Jul, [facility] [place] [facility] [address] [id number] [place] [address]- 5575 Jul, [facility] [place] [facility] [address] [id number] [place] [address]- 4947 Jul, [facility] [place] [facility] [address] [id number] [place] [address]- 0999 Jun, [facility] [place] [facility] [address] [id number] [place] [address]- 6455 Jun, [facility] [place] [facility] [address] [id number] [place] [address]- 4685 Jun, [facility] [place] [facility] [address] [id number] [place] [address]- 1322 Jun, [facility] [place] [facility] [address] [id number] [place] [address]- 5597 Jun, [facility] [place] [facility] [address] [id number] [place] [address]- 7541 May, [facility] [place] [facility] [address] [id number] [place] [address]- 5570 May, [facility] [place] [facility] [address] [id number] [place] [address]- 8366 May, [facility] [place] [facility] [address] [id number] [place] [address]- 0793 May, [facility] [place] [facility] [address] [id number] [place] [address]- 0293 May, [facility] [place] [facility] [address] [id number] [place] [address]- 8409 May, [facility] [place] [facility] [address] [id number] [place] 6548 May, [facility] [place] [facility] [address] [id number] [address]- 6247 May, [facility] [address] [id number] [place] 3598 Mar, [facility] [place] [facility] [address] [id number] [place] [address]- 8807 Mar, [facility] [place] [facility] [address] [id number] [place] [address]- 7960 Mar, [facility] [place] [facility] [address] [id number] [place] 1545 Mar, [facility] [place] [facility] [address] [id number] [place] 4406 Mar, [facility] [place] [facility] [address] [id number] [place] [address]- 8407 Mar, [facility] [address] [id number] [place] [address]- 6959 Feb, [facility] [place] [facility] [address] [id number] [address]- 6575 Feb, [facility] [place] [facility] [address] [id number] [place] [address]- 4875 Jan, [facility] [place] [facility] [address] [id number] [place] [address]- 3938 Jan, [facility] [place] [facility] [address] [id number] [address]- 0342 Jan, [facility] [place] [facility] [address] [id number] [place] [address]- 8879 Jan, [facility] [place] [facility] [address] [id number] [place] [address]- 2623 Jan, [facility] [place] [facility] [address] [id number] [place] [address]- 0424 Jan, [facility] [place] [facility] [address] [id number] [address]- 3043 Jan, [facility] [place] [facility] [address] [id number] [place] [address]- 2469 Jan, [facility] [place] [facility] [address] [id number] [place] [address]- 8813 Jan, [facility] [place] [facility] [address] [id number] [place] [address]- 2630 Jan, [facility] [place] [facility] [address] [id number] [place] [address]- 1977 Dec, [facility] [place] [facility] [address] [id number] [place] [address]- 4289 Nov, [facility] [place] [facility] [address] [id number] [place] [address]- 7807 Nov, [facility] [place] [facility] [address] [id number] [place] [address]- 9752 Nov, [facility] [place] [facility] [address] [id number] [place] [address]- 0378 Oct, [facility] [place] [facility] [address] [id number] [place] [address]- 9497 Oct, [facility] [place] [facility] [address] [id number] [place] [address]- 6067 August, [facility] [place] [facility] [address] [id number] [place] [address]- 6513 Apr, [facility] [place] [facility] [address] [id number] [place] [address]- 5607 Apr, [facility] [place] [facility] [address] [id number] [place] [address]- 8825 Feb, [facility] [place] [facility] [address] [id number] [place] [address]- 9398 Feb, [facility] [place] [facility] [address] [id number] [place] [address]- 1284 Dec, [facility] [place] [facility] [address] [id number] [place] [address]- 2934 Dec, [facility] [address] [facility] [id number] [place] [address]- 2546 Oct, [facility] [address] [facility] [id number] [place] [address]- 2546 Oct, [facility] [address] [facility] [id number] [place] [address]- 2546 Oct, [facility] [address] [facility] [id number] [address]- 2546 Jul, IMMUNIZATIONS No Known Immunizations SOCIAL HISTORY Never Assessed REASON FOR VISIT medication PLAN OF CARE VITAL SIGNS MEDICATIONS Medication [...] psychosis/mental illness , last one in [facility] 4 years ago
--- OUTSIDE RECORDS SUMMARY | 2018-09-02 13:43 | XMS REPORT ---
Author Author SOTO STRICKLAND Organization [facility] Address [address] [place] [address] Care Team Providers Care Surgical First Assistant Name Role Phone SOTO STRICKLAND Unavailable PROBLEMS Type Condition ICD9-CM Code QDQ75-IZ Code Onset Dates Condition Status SNOMED Code Problem OAB (overactive bladder) N32.81 Active 436640640 Problem Depression with anxiety F41.8 Active 791008500 Problem Other seasonal allergic rhinitis J30.2 Active 906168663 Problem Chronic obstructive pulmonary disease, unspecified COPD type J44.9 Active 53638258 Problem Tobacco abuse Z72.0 Active 162971566 Problem Morbid obesity due to excess calories E66.01 Active 032418178 Problem Dyslipidemia E78.5 Active 363088663 Problem Hypothyroidism (acquired) E03.9 Active 968697994 Problem Essential hypertension I10 Active 98561135 Problem Diabetic polyneuropathy associated with type 2 diabetes mellitus E11.42 Active 058794165 Problem Type 2 diabetes mellitus with diabetic neuropathic arthropathy, 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 Active 773624898 Problem Type 2 diabetes mellitus without complication, without long-term current use of insulin E11.9 Active 133034569 Problem Paranoid schizophrenia F20.0 Active 78574981 Problem Chronic pain syndrome G89.4 Active 586132080 Problem Migraine without aura and without status migrainosus, not intractable G43.009 Active 484399963 Problem Gastroesophageal reflux disease, esophagitis presence not specified K21.9 Active 963106983 Problem Seasonal allergic rhinitis due to pollen J30.1 Active 57126026 Problem COPD exacerbation J44.1 Active 057280976 Problem Seasonal allergic rhinitis due to other allergic trigger J30.89 Active 897009791 Problem Schizoaffective disorder, depressive type F25.1 Active 28966051 Problem History of lupus Z87.39 Active 103008843 Problem Gastroesophageal reflux disease without esophagitis K21.9 Active 007611589 Problem Menopausal syndrome (hot flashes) N95.1 Active 639621132 Problem Other allergic rhinitis J30.89 Active 548784463 Problem Primary insomnia F51.01 Active 8627176 Problem DM neuro manif type II E11.49 Active 51652680 ALLERGIES No Information ENCOUNTERS Encounter Location Date Diagnosis [place] [address] [address] 05 Dec, 2017 [place] [address] [place] [id number] [place] [address] 49513- 7966 Nov, [place] [address] [place] [id number] [place] [address] 95711- 7332 Nov, [place] [address] [place] [id number] [place] [address] 32493- 7732 Nov, Paranoid schizophrenia F20.0 [place] [address] [place] [id number] [place] [address] 31872- 5894 Nov, Gastroesophageal reflux disease, esophagitis presence not specified K21.9 [place] [id number] [place] [address] 80137- 7745 Oct, Paranoid schizophrenia F20.[address] [id number] [address] Oct Chronic pain syndrome G89.4 and Schizoaffective disorder, depressive type F25.1 [place] [address] [address] Oct, Chronic pain syndrome G89.4 and Schizoaffective disorder, depressive type F25.1 [place] [id number] [place] [address] 62108- 0190 Oct, Type 2 diabetes mellitus without complication, without long- term current use of insulin E11.9 [place] [id number] [place] [address] 89099- 5051 12 Oct, 2017 Essential hypertension I10 and DM neuro manif type II E11.49 [place] [address] [place] [id number] [place] [address] 39679- 0042 Oct, [facility] [address] [address] Oct, Schizoaffective disorder, depressive type F25.1 and BMI 45.0 -49.9, adult Z68.42 [facility] [address] [address] 7[address] Oct, [facility] [address] [place] [id number] [place] [address] 37851- 4635 Oct, Paranoid schizophrenia F20.0 [facility] [id number] [place] [address] 17840- 6253 Oct, Type 2 diabetes mellitus with diabetic neuropathic arthropathy, 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 ; Essential hypertension I10 ; Hypothyroidism (acquired) E03.9 ; Chronic obstructive pulmonary disease, unspecified COPD type J44.9 and Diabetic polyneuropathy associated with type 2 diabetes mellitus E11.42 [place] [address] [place] [id number] [place] [address] 64321- 8846 Sep, Paranoid schizophrenia F20.0 [place] [address] [place] [id number] [place] [address] 55561- 8593 Sep, Paranoid schizophrenia F20.0 and BMI 45.0-49.9, adult Z68.42 [facility] [address], [place] [address] 25[address] Sep, Schizoaffective disorder, depressive type F25.1 [facility] [address] [address] 5859 Sep, [facility] [address] [place] [id number] [place] [address] 06363- 3003 Sep, Paranoid schizophrenia F20.0 [facility] [address] [address] 7155 Sep, [facility] [address] [place] [id number] [place] [address] 89170- 3415 Sep, Hypothyroidism (acquired) E03.9 [facility] [address] [place] [id number] [place] [address] 38912- 5716 Sep, [facility] [address] [place] [id number] [place] [address] 88219- 8557 August, Schizoaffective disorder, depressive type F25.1 [facility] [address] 77666- 2934 August, [facility] [address] [place] [id number] [place] [address] 96328- 1509 August, [facility] [address] [place] [id number] [place] [address] 25738- 9093 August, [facility] [address] 21397- 9075 August, Paranoid schizophrenia F20.0 [facility] [address] 60028- 7398 August, History of lupus Z87.39 and Chronic pain syndrome G89.4 [facility] [address] [place] [id number] [place] [address] 48613- 3767 August, [facility] [address] [place] [id number] [place] [address] 79737 -9989 August, Seasonal allergic rhinitis, unspecified trigger J30.2 and BMI 45.0-49.9, adult Z68.42 [facility] [address] [place] [id number] [place] [address] 89868- 6106 Jul, Schizoaffective disorder, depressive type F25.1 [facility] [address] [place] [id number] [place] [address] 84393- 5405 Jul, [facility] [address] 36249- 8175 Jul, Hypothyroidism (acquired) E03.9 [facility] [address] [place] [id number] [place] [address] 54695- 1011 Jul, Chronic obstructive pulmonary disease, unspecified COPD type J44.9 and Type 2 diabetes mellitus without complication, without long-term current use of insulin E11.9 [place] [address] 51809- 9988 Jul, Paranoid schizophrenia F20.0 [facility] [address] 47846- 0303 Jun, Hypothyroidism (acquired) E03.9 and Seasonal allergic rhinitis due to pollen J30.1 [facility] [address] 07775 -4518 Jun, Shortness of breath at rest R06.02 ; COPD exacerbation J44.1 and BMI 45.0-49.9, adult Z68.42 [place] [address] 85210- 4676 Jun, [place] [address] 15151- 5180 Jun, Paranoid schizophrenia F20.0 ; Depression with anxiety F41.8 and BMI 45.0-49.9, adult Z68.42 [place] [address] 59436- 8278 Jun, Schizoaffective disorder, depressive type F25.1 [facility] [address] [id number] Jun, Dental caries K02.9 [place] [address] 97636- 6558 Jun, Paranoid schizophrenia F20.0 [place] [address] 65058- 1064 May, Migraine without aura and without status migrainosus, not intractable G43.009 ; DM neuro manif type II E11.49 and Type 2 diabetes mellitus without complication, without long-term current use of insulin E11.9 [place] [address] 31405- 6786 May, Migraine without aura and without status migrainosus, not intractable G43.009 [facility] [address] [place] [id number] [place] [address] 79085- 9873 May, Depression with anxiety F41.8 [facility] [id number] [place] [address] [id number] May, [facility] [address] 33599- 8731 May, [place] [address] 65895- 9290 May, [place] [address] [place] [id number] [place] [address] 33101- 0645 May, Hypothyroidism (acquired) E03.9 [place] [address] 09843- 8042 May, Paranoid schizophrenia F20.0 [facility] [address] [place] [id number] [place] [address] 55768- 6405 May, Type 2 diabetes mellitus without complication, [...] N32.81 and Controlled substance agreement signed Z79.899 [place] [address] [place] [id number] [place] [address] 11767- 7948 May, Controlled substance agreement signed Z79.899 [place] [address] [place] [id number] [place] [address] 51569- 1602 Apr, [facility] [address] [address] Apr, Dental examination Z01.20 [facility] [address] [place] [id number] [place] [address] 65758- 6778 Apr, Paranoid schizophrenia F20.0 [facility] [address] [place] [id number] [place] [address] 47333- 2139 Apr, Hypertension, unspecified type I10 [facility] [address] [place] [id number] [place] [address] 66136- 0565 Apr, Paranoid schizophrenia F20.0 [facility] [address] [place] [id number] [place] [address] 02506- 3739 Apr, [facility] [address] [place] [id number] [place] [address] 56005- 8957 Apr, Tobacco abuse Z72.0 [facility] [address] [place] [id number] [place] [address] 02314- 9265 Apr, [facility] [address] [place] [id number] [place] [address] 68672- 7843 Mar, [facility] [address] [place] [id number] [place] [address] 68990- 2933 Mar, Paranoid schizophrenia F20.0 and BMI 45.0-49.9, adult Z68.42 [facility] [address] [place] [id number] [place] [address] 31132- 8936 Mar, Schizoaffective disorder, depressive type F25.1 [facility] [address] [place] [id number] [place] [address] 06453- 0990 Mar, [facility] [address] [place] [id number] [place] [address] 77034- 7797 Mar, Hypothyroidism, unspecified type E03.9 [facility] [address] [place] [id number] [place] [address] 95100- 2426 Mar, Schizoaffective disorder, depressive type F25.1 [facility] [address] [place] [id number] [place] [address] 37095 -4825 Feb, Gastroenteritis K52.9 and BMI 45.0-49.9, adult Z68.42 [facility] [address] [place] [id number] [place] [address] 15195- 3954 Feb, [facility] [address] 66563- 7713 Feb, [facility] [address] [place] [id number] [place] [address] 64160- 8211 Feb, [place] [address] 02544- 4888 Feb, [place] [address] 89778- 2957 Feb, Paranoid schizophrenia F20.0 [facility] [address] [place] [id number] [place] [address] 55452- 3784 Feb, Gastroesophageal reflux disease without esophagitis K21.9 ; Other seasonal allergic rhinitis J30.2 ; Other allergic rhinitis J30.89 ; Tobacco abuse Z72.0 and BMI 40.0-44.9, adult Z68.41 [place] [address] [place] [id number] [place] [address] 76020- 3857 Feb, Onychomycosis B35.1 ; Callus of foot L84 and DM neuro manif type II E11.49 [facility] [address] [place] [id number] [place] [address] 37041- 7059 Jan, Chronic allergic rhinitis J30.9 [place] [address] 11457- 4074 Jan, [facility] [address] [place] [id number] [place] [address] 12330- 3055 Jan, Schizoaffective disorder, depressive type F25.1 [facility] [address] [place] [address]- 2281 10 Jan, 2017 [facility] [address] [place] [id number] [place] [address] 36201 -6309 07 Jan, 2017 Sore throat J02.9 and Seasonal allergic rhinitis due to other allergic trigger J30.89 [facility] [address] [place] [id number] [place] [address] 11591- 7742 04 Jan, 2017 [facility] [address] 93960- 5802 Jan, [facility] [address] 11798 -6980 Jan, Chronic allergic rhinitis J30.9 [place] [address] 89574- 3261 27 Dec, 2016 Paranoid schizophrenia F20.0 ; Primary insomnia F51.01 and Schizoaffective disorder, depressive type F25.1 [place] [address] 02764- 2090 Dec, Chronic pain syndrome G89.4 ; Cervicalgia of occipito- atlanto-axial region M54.2 ; Menopausal syndrome (hot flashes) N95.1 and Encounter for immunization Z23 [facility] [address] [place] [id number] [place] [address] 16881- 2079 14 Dec, 2016 [place] [address] [place] [id number] [place] [address] 03731- 2850 13 Dec, 2016 [place] [address] [place] [id number] [place] [address] 91327- 0426 08 Dec, 2016 Paranoid schizophrenia F20.0 [place] [address] 59425- 6374 Dec, Schizoaffective disorder, depressive type F25.1 [place] [address] [place] [id number] [place] [address] 84727- 0443 Nov, Hypothyroidism, unspecified type E03.9 [facility] [address], [place] [address] Nov, Acute seasonal allergic rhinitis due to other allergen J30.89 [facility] [address] [place] [id number] [place] [address] 51083- 5775 Nov, [facility] [address] [place] [id number] [place] [address] 15152- 4662 Nov, Hypothyroidism, unspecified type E03.9 and Other elevated white blood cell (WBC) count D72.828 [place] [address] [place] [id number] [place] [address] 70730- 9701 Nov, Schizoaffective disorder, depressive type F25.1 [place] [address] [place] [id number] [place] [address] 75547- 8880 Nov, Paranoid schizophrenia F20.0 [place] [address] [place] [id number] [place] [address] 92100- 5428 Nov, Type 2 diabetes mellitus without complication, without long- term current use of insulin E11.9 ; Morbid obesity due to excess calories E66.01 and Chronic pain syndrome G89.4 [place] [address] [place] [id number] [place] [address] 47556- 5899 Oct, Paranoid schizophrenia F20.0 [place] [address] [place] [id number] [place] [address] 73682- 0361 Oct, [place] [address] [place] [id number] [place] [address] 37650- 1335 Oct, Schizoaffective disorder, depressive type F25.1 [place] [address] [place] [id number] [place] [address] 84261- 4645 Oct, Hypothyroidism, unspecified type E03.9 and Other elevated white blood cell (WBC) count D72.828 [place] [address] [place] [id number] [place] [address] 56281- 8714 Oct, Morbid obesity due to excess calories E66.01 ; Chronic obstructive pulmonary disease, unspecified COPD type J44.9 ; History of lupus Z87.39 ; Hypothyroidism, unspecified type E03.9 ; Gastroesophageal reflux disease without esophagitis K21.9 ; Primary insomnia F51.01 and Chronic pain syndrome G89.4 [facility] [address] [place] [address] 07637- 2370 Sep, [facility] [address] [place] [id number] [place] [address] 24679- 0926 Sep, [facility] [address] [place] [id number] [place] [address] 39781- 7571 Sep, [facility] [address] [place] [id number] [place] [address] 51565- 5987 Sep, Paranoid schizophrenia F20.0 [facility] [address] [place] [id number] [place] [address] 97012- 2322 Sep, [facility] [address] [place] [id number] [place] [address] 07389- 0316 Sep, Paranoid schizophrenia F20.0 [facility] [address] [place] [id number] [place] [address] 79379- 4690 Sep, [facility] [address] [place] [id number] [place] [address] 66812- 5280 August, Paranoid schizophrenia F20.0 [facility] [address] [place] [id number] [place] [address] 39572- 8750 Jul, [facility] [address] [place] [id number] [place] [address] 73187- 3777 Jul, Type 2 diabetes mellitus without complication, without long- term current use of insulin E11.9 ; Morbid obesity due to excess calories E66.01 ; Depression with anxiety F41.8 ; Hypothyroidism, unspecified type E03.9 ; Seasonal allergic rhinitis due to other allergic trigger J30.89 ; Pain, dental K08.89 and Gastroesophageal reflux disease without esophagitis K21.9 [facility] [address] [place] [address] [id number] Jul, Dental examination Z01.20 [facility] [id number] [place] [address] 46712- 8981 07 Jul, 2016 Paranoid schizophrenia F20.0 [place] [address] [place] [id number] [place] [address] 67429- 1528 13 Jun, 2016 Paranoid schizophrenia F20.0 and Depression with anxiety F41.8 [place] [address] [place] [id number] [place] [address] 52651- 4892 10 Jun, 2016 Paranoid schizophrenia F20.0 and Depression with anxiety F41.8 [place] [address] [place] [id number] [place] [address] 39829- 6999 09 Jun, 2016 [place] [address] [place] [id number] [place] [address] 27874- 9504 Jun, [facility] [place] [address] [place] [id number] [place] [address] 30526 -8161 Jun, Seasonal allergic rhinitis due to other allergic trigger J30.89 [facility] [place] [address] [place] [id number] [place] [address] 14038 -4977 May, Sore throat J02.9 ; Other viral agents as the cause of diseases classified elsewhere B97.89 and Acute upper respiratory infection, unspecified J06.9 [place] [address] [place] [address] 70388- 9614 May, Paranoid schizophrenia F20.0 and Depression with anxiety F41.8 [place] [address] [place] [id number] [place] [address] 58561- 8986 Apr, Other seasonal allergic rhinitis J30.2 [place] [address] [place] [id number] [place] [address] 56834- 2819 Apr, Paranoid schizophrenia F20.0 and Depression with anxiety F41.8 [facility] [address] [place] [id number] [place] [address] 56388 -8147 Apr, Bronchitis J40 and Sore throat J02.9 [place] [address] [address]- 8525 Apr, Type 2 diabetes mellitus without complication, without long- term current use of insulin E11.9 [facility] [id number] [place] [address] 83945 -9990 Apr, Bronchitis J40 [facility] [address] [place] [id number] [place] [address] 29995- 2519 Apr, [facility] [address] [place] [id number] [place] [address] 59505- 8770 Apr, [facility] [address] [place] [id number] [place] [address] 32951- 1633 Mar, Type 2 diabetes mellitus without complication, [...] R60.9 and Other seasonal allergic rhinitis J30.2 [place] [address] [place] [id number] [place] [address] 01810- 7240 Mar, Paranoid schizophrenia F20.0 and Depression with anxiety F41.8 [facility] [id number] [place] [address] 37114- 0628 Feb, [facility] [address] [place] [id number] [place] [address] 93505- 3915 Feb, [place] [address] [place] [id number] [place] [address] 00359- 4503 Feb, [place] [address] [place] [id number] [place] [address] 06807- 1852 Feb, [facility] [address] [place] [id number] [place] [address] 18573- 4965 Feb, Type 2 diabetes mellitus without complication, without long- term current use of insulin E11.9 ; ARIAS on CPAP G47.33 and Preoperative evaluation to rule out surgical contraindication Z01.818 [facility] [address] [place] [id number] [place] [address] 69759- 8702 Feb, Paranoid schizophrenia F20.0 and Depression with anxiety F41.8 [facility] [address] [place] [id number] [place] [address] 04900- 2132 Jan, [facility] [address] [place] [id number] [place] [address] 98175- 3978 Jan, Paranoid schizophrenia F20.0 and Depression with anxiety F41.8 [facility] [address] 98707- 4257 Jan, [facility] [address] [place] [id number] [place] [address] 70930- 4574 Jan, Muscle strain T14.8 [facility] [address] [place] [id number] [place] [address] 64767- 5831 Jan, Paranoid schizophrenia F20.0 [facility] [address] 41998- 5123 Jan, [facility] [address] [place] [id number] [place] [address] 91852- 1209 Jan, Paranoid schizophrenia F20.0 and Depression with anxiety F41.8 [facility] [address] [place] [id number] [place] [address] 58225- 9342 Jan, [facility] [address] [place] [id number] [place] [address] 46311- 7413 Jan, [facility] [address] [phone] Dec, [facility] [id number] [place] [address] [id number] [id number] Dec, Paranoid schizophrenia F20.0 [facility] [id number] [address] 16 Dec, 2015 Paranoid schizophrenia F20.0 and Depression with anxiety F41.8 [facility] [id number] [place] [address] [phone]- [phone] Nov, [facility] [id number] [place] [address] [id number]- 6037 Nov, Paranoid schizophrenia F20.0 [facility] [id number] [place] [address] 55628- 2921 Nov, Paranoid schizophrenia F20.0 and Depression with anxiety F41.8 [facility] [id number] [place] [address] 90581- 8323 Nov, Type 2 diabetes mellitus without complication, without long- term current use of insulin E11.9 ; Paranoid schizophrenia F20.0 ; Chronic obstructive pulmonary disease, unspecified COPD type J44.9 ; Morbid obesity due to excess calories E66.01 and Parkinsonian tremor G20 [facility] [id number] [address] Nov, [facility] [id number] [place] [address] 40513- 3797 Oct, Paranoid schizophrenia F20.0 [facility] [id number] [place] [address] 29841- 2407 Oct, Paranoid schizophrenia F20.0 [facility] [id number] [place] [address] 00129- 1187 Oct, Paranoid schizophrenia F20.0 and Depression with anxiety F41.8 [facility] [id number] [place] [address] 74207- 7143 Oct, [facility] [id number] [place] [address] 90330- 7253 Oct, Paranoid schizophrenia F20.0 and Depression with anxiety F41.8 [facility] [id number] [place] [address] 07330- 2014 Oct, Nasal sore J34.89 [facility] [id number] [place] [address] 36423- 1813 Oct, Type 2 diabetes mellitus without complication, without long- term current use of insulin E11.9 ; Depression with anxiety F41.8 ; Hypothyroidism, unspecified type E03.9 and History of lupus Z87.39 [facility] [id number] [place] [address] 68717- 9081 Oct, [facility] [id number] [place] [address] 46333- 8651 Oct, Type 2 diabetes mellitus without complication, [...] edema R60.9 and History of lupus Z87.39 [facility] [id number] [place] [address] 60941- 5552 Feb, [facility] [id number] [place] [address] 07432- 5208 Jan, [facility] [id number] [place] [address] 94399- 5826 Jan, [facility] [id number] [place] [address] 93837- 9686 Jan, [place] [address] 45687- 4110 Dec, [facility] [id number] [place] [address] 12337- 2030 Nov, [address] [address] 74293- 3546 Nov, [facility] [address] [facility] [id number] [place] [address]- 3313 Oct, [facility] [address] [facility] [id number] [place] [address]- 7154 Oct, [facility] [address] [facility] [id number] [place] [address]- 6485 Oct, [facility] [address] [facility] [id number] [place] [address] 30627- 6158 Sep, Allergic rhinitis 477.9 [facility] [id number] [place] [address], [place] [address]- 6597 Sep, Rhinitis, allergic 477.[facility] [id number] [place] [address]- 9089 Sep, Rhinitis, allergic 477.9 [facility] [address] [place] [address]- 7751 Sep, [facility] [address] [id number] [place] [address] 88[address] August, [facility] [id number] [place] [address]- 0571 August, [facility] [address] [place] [address]- 5512 August, [facility] [address] [id number] [address] 7722 28 Jul, 2014 [facility] [address] [facility] [id number] [place] [address]- 2946 14 Jul, 2014 [facility] [address] [place] [address]- 8261 13 Jul, 2014 [facility] [address] [facility] [id number] [place] [address]- 4206 16 Jun, 2014 [facility] [address] [address]- 7354 16 Jun, 2014 [facility] [place] [facility] [address] [id number] [place] [address]- 1341 Jun, [facility] [place] [facility] [address] [id number] [place] 6294 Jun, [facility] [place] [facility] [address] [facility] [id number] [place] [address]- 2377 Jun, [facility] [place] [facility] [address] [id number] [place] [address]- 0649 Jun, [facility] [place] [facility] [address] [id number] [place] [address]- 7972 Jun, [facility] [place] [facility] [address] [facility] [id number] [place] [address]- 3426 Jun, [facility] [place] [facility] [address] [facility] [id number] [place] [address]- 6622 May, [facility] [place] [facility] [address] [id number] [place] [address]- 3094 May, [facility] [place] [facility] [address] [id number] [place] [address]- 0353 May, [facility] [place] [facility] [address] [facility] [id number] [place] [address]- 4080 May, [facility] [place] [facility] [address] [facility] [id number] [place] [address]- 4245 Apr, [facility] [place] [facility] [address] [id number] [place] [address]- 0908 Mar, [facility] [place] [facility] [address] [id number] [place] [address]- 7352 Mar, [facility] [place] [facility] [address] [facility] [id number] [place] [address]- 6798 Mar, [facility] [place] [facility] [address] [facility] [id number] [place] [address]- 5682 Mar, [facility] [place] [facility] [address] [id number] [place] [address]- 5555 06 Mar, 2014 [facility] [place] [facility] [address] [id number] [place] 7729 Mar, [facility] [place] [facility] [address] [id number] [place] [address]- 1085 Mar, [facility] [place] [facility] [address] [id number] [place] [address]- 9172 Mar, [facility] [place] [facility] [address] [id number] [place] [address]- 9818 Mar, [facility] [place] [facility] [address] [id number] [place] [address]- 0253 Feb, [facility] [place] [facility] [address] [id number] [place] [address]- 3626 Feb, [facility] [place] [facility] [address] [id number] [place] [address]- 1586 Feb, [facility] [place] [facility] [address] [id number] [place] [address]- 1050 Feb, [facility] [place] [facility] [address] [id number] [place] [address]- 3429 Feb, [facility] [place] [facility] [address] [id number] [place] [address]- 3732 Feb, [facility] [place] [facility] [address] [id number] [place] [address]- 0282 Feb, [facility] [place] [facility] [address] [id number] [place] [address]- 3347 Feb, [facility] [place] [facility] [address] [id number] [place] [address]- 6098 Jan, [facility] [place] [facility] [address] [id number] [place] [address]- 8157 Jan, [facility] [place] [facility] [address] [id number] [place] [address]- 5339 16 Jan, 2014 [facility] [place] [facility] [address] [id number] [place] [address]- 9153 16 Jan, 2014 [facility] [place] [facility] [address] [id number] [place] [address]- 1876 15 Jan, 2014 [facility] [place] [facility] [address] [id number] [place] [address]- 1646 15 Jan, 2014 [facility] [place] [facility] [address] [id number] [place] [address]- 4587 14 Jan, 2014 [facility] [place] [facility] [address] [id number] [place] [address]- 9032 14 Jan, 2014 [facility] [place] [facility] [address] [id number] [place] [address]- 2967 14 Jan, 2014 [facility] [place] [facility] [address] [id number] [place] [address]- 8379 14 Jan, 2014 [facility] [place] [facility] [address] [id number] [place] [address]- 1430 18 Dec, 2013 [facility] [place] [facility] [address] [id number] [place] [address]- 6045 18 Dec, 2013 [facility] [place] [facility] [address] [id number] [place] [address]- 8664 10 Dec, 2013 [facility] [place] [facility] [address] [id number] [place] [address]- 3550 10 Dec, 2013 [facility] [place] [facility] [address] [id number], [place] [address]- 2717 Nov, [facility] [place] [facility] [address] [id number] [place] [address]- 2646 Nov, [facility] [place] [facility] [address] [id number] [place] [address]- 8768 Nov, [facility] [place] [facility] [address] [id number] [place] [address]- 9009 Nov, [facility] [place] [facility] [address] [id number] [place] [address]- 7034 Nov, [facility] [place] [facility] [address] [id number] [place] [address]- 5179 Oct, [facility] [place] [facility] [address] [id number] [place] [address]- 0591 Oct, [facility] [place] [facility] [address] [id number] [place] [address]- 7998 Oct, [facility] [place] [facility] [address] [id number] [place] [address]- 3052 Oct, [facility] [place] [facility] [address] [id number] [place] [address]- 0834 Sep, [facility] [place] [facility] [address] [id number] [place] [address]- 1465 Sep, [facility] [place] [facility] [address] [id number] [place] [address]- 2010 Sep, [facility] [place] [facility] [address] [id number] [place] [address]- 1494 Sep, [facility] [place] [facility] [address] [id number] [place] [address]- 8405 Sep, [facility] [place] [facility] [address] [id number] [place] [address]- 7519 Sep, [facility] [place] [facility] [address] [id number] [place] [address]- 8758 Sep, [facility] [place] [facility] [address] [id number] [place] [address]- 3630 Sep, [facility] [place] [facility] [address] [id number] [place] [address]- 0050 August, [facility] [place] [facility] [address] [id number] [place] [address]- 1680 August, [facility] [place] [facility] [address] [id number] [place] [address]- 6695 August, [facility] [place] [facility] [address] [id number] [place] [address]- 3299 August, [facility] [place] [facility] [address] [id number] [place] [address]- 5700 August, [facility] [place] [facility] [address] [id number] [place] [address]- 5515 August, [facility] [place] [facility] [address] [id number] [place] [address]- 2006 August, [facility] [place] [facility] [address] [id number] [place] [address]- 7774 Jul, [facility] [place] [facility] [address] [id number] [place] [address]- 5919 Jul, [facility] [place] [facility] [address] [id number] [place] [address]- 6287 Jul, [facility] [place] [facility] [address] [id number] [place] [address]- 4496 Jul, [facility] [place] [facility] [address] [id number] [place] [address]- 1299 Jul, [facility] [place] [facility] [address] [id number] [place] [address]- 4021 Jul, [facility] [place] [facility] [address] [id number] [place] [address]- 9059 Jul, [facility] [place] [facility] [address] [id number] [place] [address]- 2044 Jul, [facility] [place] [facility] [address] [id number] [place] [address]- 1235 Jul, [facility] [place] [facility] [address] [id number] [place] [address]- 8464 Jul, [facility] [place] [facility] [address] [id number] [place] [address]- 3906 Jul, [facility] [place] [facility] [address] [id number] [address]- 3012 Jul, [facility] [place] [facility] [address] [id number] [place] [address]- 8990 Jun, [facility] [place] [facility] [address] [id number] [place] 7204 Jun, [facility] [place] [facility] [address] [facility] [id number] [place] [address]- 4018 Jun, [facility] [place] [facility] [address] [id number] [place] [address]- 1171 Jun, [facility] [place] [facility] [address] [id number] [place] [address]- 0719 Jun, [facility] [place] [facility] [address] [facility] [id number] [place] [address]- 0853 May, [facility] [place] [facility] [address] [facility] [id number] [place] [address]- 4128 May, [facility] [place] [facility] [address] [facility] [id number] [place] [address]- 3682 May, [facility] [place] [facility] [address] [facility] [id number] [place] [address]- 2119 May, [facility] [place] [facility] [address] [facility] [id number] [place] [address]- 0875 May, [facility] [place] [facility] [address] [facility] [id number] [place] [address]- 9589 May, [facility] [place] [facility] [address] [facility] [id number], [place] [address]- 8979 May, [facility] [place] [facility] [address] [facility] [id number] [place] [address]- 7610 May, [facility] [place] [facility] [address] [facility] [id number] 5348 Mar, [facility] [place] [facility] [address] [facility] [id number], [place] [address]- 9536 Mar, [facility] [place] [facility] [address] [id number] [place] [address]- 5243 Mar, [facility] [place] [facility] [address] [id number] [place] [address]- 9431 Mar, [facility] [place] [facility] [address] [id number] [place] [address]- 4424 Mar, [facility] [place] [facility] [address] [id number] [place] [address]- 1973 Mar, [facility] [place] [facility] [address] [id number] [place] [address]- 4920 Feb, [facility] [place] [facility] [address] [id number] [place] [address]- 0362 Feb, [facility] [place] [facility] [address] [id number] [place] [address]- 9294 Jan, [facility] [place] [facility] [address] [id number] [place] [address]- 7750 Jan, [facility] [place] [facility] [address] [id number] [place] [address]- 9796 Jan, [facility] [place] [facility] [address] [id number] [place] [address]- 1345 Jan, [facility] [place] [facility] [address] [id number] [place] [address]- 5098 Jan, [facility] [place] [facility] [address] [id number] [place] [address]- 1396 Jan, [facility] [place] [facility] [address] [id number] [place] [address]- 8271 Jan, [facility] [place] [facility] [address] [id number] [place] [address]- 5558 Jan, [facility] [place] [facility] [address] [id number] [place] [address]- 4875 08 Jan, 2013 [facility] [place] [facility] [address] [id number] [place] [address]- 4446 Jan, [facility] [address] [id number] [place] [address]- 0395 Dec, [facility] [place] [facility] [address] [id number] [place] [address]- 6566 Nov, [facility] [place] [facility] [address] [id number] [place] [address] 2546 Nov, [facility] [place] [facility] [address] [id number] [place] [address]- 9497 Nov, [facility] [place] [facility] [address] [id number] [place] [address]- 9890 Oct, [facility] [place] [facility] [address] [id number] [place] [address]- 9055 Oct, [facility] [place] [facility] [address] [id number] [place] [address]- 0099 August, [facility] [place] [facility] [address] [id number] [place] [address]- 3351 Apr, [facility] [place] [facility] [address] [id number] [place] [address]- 5917 Apr, [facility] [place] [facility] [address] [id number] [place] [address]- 2651 Feb, [facility] [place] [facility] [address] [id number] [place] [address]- 4438 Feb, [facility] [place] [facility] [address] [id number] [place] [address]- 6509 Dec, [facility] [place] [facility] [address] [id number] [place] [address]- 3603 Dec, [facility] [place] [facility] [address] [id number] [place] [address]- 6241 Oct, [facility] [place] [facility] [address] [id number] [place] [address]- 5391 Oct, [facility] [place] [facility] [address] [id number] [place] [address]99 Oct, [facility] [address] [facility] [id number] [place] [address]- 3326 Jul, IMMUNIZATIONS No Known Immunizations SOCIAL HISTORY [...]
--- OUTSIDE RECORDS SUMMARY | 2018-09-02 13:44 | XMS REPORT ---
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 Name Role Phone SOTO STRICKLAND Unavailable PROBLEMS Type Condition ICD9-CM Code LMF14-SQ Code Onset Dates Condition Status SNOMED Code Problem OAB (overactive bladder) N32.81 Active 274722806 Problem Depression with anxiety F41.8 Active 056659172 Problem Other seasonal allergic rhinitis J30.2 Active 334364925 Problem Chronic obstructive pulmonary disease, unspecified COPD type J44.9 Active 48331289 Problem Tobacco abuse Z72.0 Active 427338520 Problem Morbid obesity due to excess calories E66.01 Active 676468473 Problem Dyslipidemia E78.5 Active 251860526 Problem Hypothyroidism (acquired) E03.9 Active 463561989 Problem Essential hypertension I10 Active 07719987 Problem Diabetic polyneuropathy associated with type 2 diabetes mellitus E11.42 Active 322579173 Problem Type 2 diabetes mellitus with diabetic neuropathic arthropathy, 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 Active 137499069 Problem Type 2 diabetes mellitus without complication, without long-term current use of insulin E11.9 Active 990707381 Problem Paranoid schizophrenia F20.0 Active 25232888 Problem Chronic pain syndrome G89.4 Active 440792509 Problem Migraine without aura and without status migrainosus, not intractable G43.009 Active 544115568 Problem Gastroesophageal reflux disease, esophagitis presence not specified K21.9 Active 630265220 Problem Seasonal allergic rhinitis due to pollen J30.1 Active 09268249 Problem COPD exacerbation J44.1 Active 992559349 Problem Seasonal allergic rhinitis due to other allergic trigger J30.89 Active 288469678 Problem Schizoaffective disorder, depressive type F25.1 Active 49245454 Problem History of lupus Z87.39 Active 406854264 Problem Gastroesophageal reflux disease without esophagitis K21.9 Active 707450227 Problem Menopausal syndrome (hot flashes) N95.1 Active 353754981 Problem Other allergic rhinitis J30.89 Active 097994375 Problem Primary insomnia F51.01 Active 2347109 Problem DM neuro manif type II E11.49 Active 06296328 ALLERGIES No Information ENCOUNTERS Encounter Location Date Diagnosis [place] [address] [address] 05 Dec, 2017 [place] [address] [place] [id number] [place] [address] 28771- 4697 Nov, [place] [address] [place] [id number] [place] [address] 95303- 6899 Nov, [place] [address] [place] [id number] [place] [address] 06602- 9001 Nov, Paranoid schizophrenia F20.0 [place] [address] [place] [id number] [place] [address] 56305- 6915 Nov, Gastroesophageal reflux disease, esophagitis presence not specified K21.9 [place] [address] [place] [address] 26687- 6461 Oct, Paranoid schizophrenia F20.[id number] [place] [address] Oct Chronic pain syndrome G89.4 and Schizoaffective disorder, depressive type F25.1 [place] [address] [address] 2791 Oct, Chronic pain syndrome G89.4 and Schizoaffective disorder, depressive type F25.1 [place] [address] [place] [address] 16028- 6911 Oct, Type 2 diabetes mellitus without complication, without long- term current use of insulin E11.9 [place] [address] [place] [address] 15636- 0122 12 Oct, 2017 Essential hypertension I10 and DM neuro manif type II E11.49 [place] [address] [place] [id number] [place] [address] 04400- 0429 Oct, [facility] [address], [place] [address] 5820 Oct, Schizoaffective disorder, depressive type F25.1 and BMI 45.0 -49.9, adult Z68.42 [facility] [address], [place] [address] 0[address] Oct, [facility] [address] [place] [id number] [place] [address] 13122- 4966 Oct, Paranoid schizophrenia F20.0 [facility] [address] [place] [address] 09104- 9117 Oct, Type 2 diabetes mellitus with diabetic neuropathic arthropathy, 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 ; Essential hypertension I10 ; Hypothyroidism (acquired) E03.9 ; Chronic obstructive pulmonary disease, unspecified COPD type J44.9 and Diabetic polyneuropathy associated with type 2 diabetes mellitus E11.42 [place] [address] [place] [id number] [place] [address] 07832- 0372 Sep, Paranoid schizophrenia F20.0 [place] [address] [place] [id number] [place] [address] 86697- 0592 Sep, Paranoid schizophrenia F20.0 and BMI 45.0-49.9, adult Z68.42 [facility] [address], [place] [address] 3955 Sep, Schizoaffective disorder, depressive type F25.1 [facility] [address], [place] [address] 8953 Sep, [facility] [address] [place] [id number] [place] [address] 04175- 4571 Sep, Paranoid schizophrenia F20.0 [facility] [address], [place] [address] 7587 Sep, [facility] [address] [place] [id number] [place] [address] 71099- 3104 Sep, Hypothyroidism (acquired) E03.9 [facility] [address] [id number] [place] [address] 82778- 2703 Sep, [facility] [address] [address] [id number] [place] [address] 49818- 2946 August, Schizoaffective disorder, depressive type F25.1 [facility] [address] 37610- 2314 August, [facility] [address] [place] [id number] [place] [address] 23351- 7682 August, [facility] [address] [place] [id number] [place] [address] 83602- 6004 August, [facility] [address] 75296- 6968 August, Paranoid schizophrenia F20.0 [facility] [address] 88567- 9024 August, History of lupus Z87.39 and Chronic pain syndrome G89.4 [facility] [address] [place] [id number] [place] [address] 83512- 0144 August, [facility] [address] [place] [id number] [place] [address] 46045 -2629 August, Seasonal allergic rhinitis, unspecified trigger J30.2 and BMI 45.0-49.9, adult Z68.42 [facility] [address] [place] [id number] [place] [address] 37178- 0012 Jul, Schizoaffective disorder, depressive type F25.1 [facility] [address] [place] [id number] [place] [address] 36359- 0754 Jul, [facility] [address] 36973- 2295 Jul, Hypothyroidism (acquired) E03.9 [facility] [address] [place] [id number] [place] [address] 36191- 3265 Jul, Chronic obstructive pulmonary disease, unspecified COPD type J44.9 and Type 2 diabetes mellitus without complication, without long-term current use of insulin E11.9 [place] [address] 48694- 7629 Jul, Paranoid schizophrenia F20.0 [facility] [address] 64013- 9655 Jun, Hypothyroidism (acquired) E03.9 and Seasonal allergic rhinitis due to pollen J30.1 [facility] [address] 24119 -8764 Jun, Shortness of breath at rest R06.02 ; COPD exacerbation J44.1 and BMI 45.0-49.9, adult Z68.42 [place] [address] 38898- 1497 Jun, [place] [address] 31601- 7508 Jun, Paranoid schizophrenia F20.0 ; Depression with anxiety F41.8 and BMI 45.0-49.9, adult Z68.42 [place] [address] 10299- 0896 Jun, Schizoaffective disorder, depressive type F25.1 [facility] [address] [id number] Jun, Dental caries K02.9 [place] [address] 95590- 8630 Jun, Paranoid schizophrenia F20.0 [place] [address] 99956- 0222 May, Migraine without aura and without status migrainosus, not intractable G43.009 ; DM neuro manif type II E11.49 and Type 2 diabetes mellitus without complication, without long-term current use of insulin E11.9 [place] [address] 30442- 6328 May, Migraine without aura and without status migrainosus, not intractable G43.009 [facility] [address] [place] [id number] [place] [address] 12284- 6239 May, Depression with anxiety F41.8 [facility] [address] [place] [address] [id number] May, [facility] [address] 79563- 0196 May, [place] [address] 63854- 5228 May, [place] [address] [place] [id number] [place] [address] 84017- 3161 May, Hypothyroidism (acquired) E03.9 [place] [address] 39735- 0506 May, Paranoid schizophrenia F20.0 [facility] [address] [place] [id number] [place] [address] 30467- 7748 May, Type 2 diabetes mellitus without complication, [...] N32.81 and Controlled substance agreement signed Z79.899 [place] [address] [place] [id number] [place] [address] 97781- 5725 May, Controlled substance agreement signed Z79.899 [place] [address] [place] [id number] [place] [address] 20856- 9015 Apr, [facility] [address] [id number] Apr, Dental examination Z01.20 [facility] [address] [place] [id number] [place] [address] 00209- 2190 Apr, Paranoid schizophrenia F20.0 [facility] [address] [place] [id number] [place] [address] 56991- 4708 Apr, Hypertension, unspecified type I10 [facility] [address] [place] [id number] [place] [address] 03072- 9477 Apr, Paranoid schizophrenia F20.0 [facility] [address] [place] [id number] [place] [address] 06593- 5665 Apr, [facility] [address] [place] [id number] [place] [address] 57051- 2719 Apr, Tobacco abuse Z72.0 [facility] [address] [place] [id number] [place] [address] 29326- 0098 Apr, [facility] [address] [place] [id number] [place] [address] 72288- 6094 Mar, [facility] [address] [place] [id number] [place] [address] 50633- 4012 Mar, Paranoid schizophrenia F20.0 and BMI 45.0-49.9, adult Z68.42 [facility] [address] [place] [id number] [place] [address] 19472- 4970 Mar, Schizoaffective disorder, depressive type F25.1 [facility] [address] [place] [id number] [place] [address] 72360- 4523 Mar, [facility] [address] [place] [id number] [place] [address] 06597- 9624 Mar, Hypothyroidism, unspecified type E03.9 [facility] [address] [place] [id number] [place] [address] 03284- 0781 Mar, Schizoaffective disorder, depressive type F25.1 [facility] [address] [place] [id number] [place] [address] 29858 -6282 Feb, Gastroenteritis K52.9 and BMI 45.0-49.9, adult Z68.42 [facility] [address] [place] [id number] [place] [address] 74530- 0945 Feb, [facility] [address] 84078- 2485 Feb, [facility] [address] [place] [id number] [place] [address] 56326- 7746 Feb, [place] [address] 78065- 5609 Feb, [place] [address] 31509- 1024 Feb, Paranoid schizophrenia F20.0 [facility] [address] [place] [id number] [place] [address] 65655- 4197 Feb, Gastroesophageal reflux disease without esophagitis K21.9 ; Other seasonal allergic rhinitis J30.2 ; Other allergic rhinitis J30.89 ; Tobacco abuse Z72.0 and BMI 40.0-44.9, adult Z68.41 [place] [address] [place] [id number] [place] [address] 98823- 6948 Feb, Onychomycosis B35.1 ; Callus of foot L84 and DM neuro manif type II E11.49 [facility] [address] [place] [id number] [place] [address] 49599- 0815 Jan, Chronic allergic rhinitis J30.9 [place] [address] 55596- 4244 Jan, [facility] [address] [place] [id number] [place] [address] 37869- 7582 Jan, Schizoaffective disorder, depressive type F25.1 [facility] [address] [place] [address]- 3813 10 Jan, 2017 [facility] [address] [place] [id number] [place] [address] 05807 -4239 07 Jan, 2017 Sore throat J02.9 and Seasonal allergic rhinitis due to other allergic trigger J30.89 [facility] [address] [place] [id number] [place] [address] 81836- 0874 04 Jan, 2017 [facility] [address] 24089- 0830 Jan, [facility] [address] 52276 -0192 Jan, Chronic allergic rhinitis J30.9 [place] [address] 42841- 1709 27 Dec, 2016 Paranoid schizophrenia F20.0 ; Primary insomnia F51.01 and Schizoaffective disorder, depressive type F25.1 [place] [address] 17074- 5226 Dec, Chronic pain syndrome G89.4 ; Cervicalgia of occipito- atlanto-axial region M54.2 ; Menopausal syndrome (hot flashes) N95.1 and Encounter for immunization Z23 [facility] [address] [place] [id number] [place] [address] 28439- 1642 14 Dec, 2016 [place] [address] [place] [id number] [place] [address] 72043- 4685 13 Dec, 2016 [place] [address] [place] [id number] [place] [address] 31546- 5085 08 Dec, 2016 Paranoid schizophrenia F20.0 [place] [address] 81652- 8372 Dec, Schizoaffective disorder, depressive type F25.1 [place] [address] [place] [id number] [place] [address] 63280- 3903 Nov, Hypothyroidism, unspecified type E03.9 [facility] [address], [place] [address]17 Nov, Acute seasonal allergic rhinitis due to other allergen J30.89 [facility] [address] [place] [id number] [place] [address] 07805- 2715 Nov, [facility] [address] [place] [id number] [place] [address] 72054- 8130 Nov, Hypothyroidism, unspecified type E03.9 and Other elevated white blood cell (WBC) count D72.828 [place] [address] [place] [address] [place] [address] 98608- 3289 Nov, Schizoaffective disorder, depressive type F25.1 [place] [address] [place] [id number] [place] [address] 21846- 4120 Nov, Paranoid schizophrenia F20.0 [place] [address] [place] [id number] [place] [address] 48130- 3671 Nov, Type 2 diabetes mellitus without complication, without long- term current use of insulin E11.9 ; Morbid obesity due to excess calories E66.01 and Chronic pain syndrome G89.4 [place] [address] [place] [id number] [place] [address] 20420- 1943 Oct, Paranoid schizophrenia F20.0 [place] [address] [place] [id number] [place] [address] 02480- 8428 Oct, [place] [address] [place] [id number] [place] [address] 70134- 9830 Oct, Schizoaffective disorder, depressive type F25.1 [place] [address] [place] [id number] [place] [address] 21613- 7530 Oct, Hypothyroidism, unspecified type E03.9 and Other elevated white blood cell (WBC) count D72.828 [place] [address] [place] [address] [place] [address] 77612- 4862 Oct, Morbid obesity due to excess calories E66.01 ; Chronic obstructive pulmonary disease, unspecified COPD type J44.9 ; History of lupus Z87.39 ; Hypothyroidism, unspecified type E03.9 ; Gastroesophageal reflux disease without esophagitis K21.9 ; Primary insomnia F51.01 and Chronic pain syndrome G89.4 [facility] [address] [place] [address] 58062- 9425 Sep, [facility] [address] [place] [id number] [place] [address] 83956- 4807 Sep, [facility] [address] [place] [id number] [place] [address] 91057- 3580 Sep, [facility] [address] [place] [id number] [place] [address] 52871- 0442 Sep, Paranoid schizophrenia F20.0 [facility] [address] [place] [id number] [place] [address] 30400- 9324 Sep, [facility] [address] [place] [id number] [place] [address] 26697- 5035 Sep, Paranoid schizophrenia F20.0 [facility] [address] [place] [id number] [place] [address] 30298- 8039 Sep, [facility] [address] [place] [id number] [place] [address] 82871- 4118 August, Paranoid schizophrenia F20.0 [facility] [address] [place] [id number] [place] [address] 26653- 9123 Jul, [facility] [address] [place] [id number] [place] [address] 59205- 5674 Jul, Type 2 diabetes mellitus without complication, without long- term current use of insulin E11.9 ; Morbid obesity due to excess calories E66.01 ; Depression with anxiety F41.8 ; Hypothyroidism, unspecified type E03.9 ; Seasonal allergic rhinitis due to other allergic trigger J30.89 ; Pain, dental K08.89 and Gastroesophageal reflux disease without esophagitis K21.9 [facility] [address] [place] [address] [id number] Jul, Dental examination Z01.20 [facility] [address] [place] [address] 95537- 9599 07 Jul, 2016 Paranoid schizophrenia F20.0 [place] [address] [place] [id number] [place] [address] 78513- 7075 13 Jun, 2016 Paranoid schizophrenia F20.0 and Depression with anxiety F41.8 [place] [address] [place] [id number] [place] [address] 77940- 0938 10 Jun, 2016 Paranoid schizophrenia F20.0 and Depression with anxiety F41.8 [place] [address] [place] [id number] [place] [address] 92803- 0012 09 Jun, 2016 [place] [address] [place] [id number] [place] [address] 06371- 0486 Jun, [facility] [place] [address] [place] [id number] [place] [address] 83792 -1962 Jun, Seasonal allergic rhinitis due to other allergic trigger J30.89 [facility] [place] [address] [place] [id number] [place] [address] 07535 -7648 May, Sore throat J02.9 ; Other viral agents as the cause of diseases classified elsewhere B97.89 and Acute upper respiratory infection, unspecified J06.9 [place] [address] [place] [address] 19469- 5222 May, Paranoid schizophrenia F20.0 and Depression with anxiety F41.8 [place] [address] [place] [address] [place] [address] 21651- 1080 Apr, Other seasonal allergic rhinitis J30.2 [place] [address] [place] [id number] [place] [address] 07189- 9445 Apr, Paranoid schizophrenia F20.0 and Depression with anxiety F41.8 [facility] [address] [place] [id number] [place] [address] 76585 -9181 Apr, Bronchitis J40 and Sore throat J02.9 [place] [address] [address]- 4086 Apr, Type 2 diabetes mellitus without complication, without long- term current use of insulin E11.9 [facility] [address] [place] [address] 63254 -7273 Apr, Bronchitis J40 [facility] [address] [place] [id number] [place] [address] 59803- 1585 Apr, [facility] [address] [place] [id number] [place] [address] 92254- 7669 Apr, [facility] [address] [place] [id number] [place] [address] 57461- 0477 Mar, Type 2 diabetes mellitus without complication, [...] R60.9 and Other seasonal allergic rhinitis J30.2 [place] [address] [place] [address] [place] [address] 28935- 8737 Mar, Paranoid schizophrenia F20.0 and Depression with anxiety F41.8 [facility] [address] [place] [address] 01993- 3679 Feb, [facility] [address] [place] [id number] [place] [address] 57917- 8840 Feb, [place] [address] [place] [id number] [place] [address] 20678- 9456 Feb, [place] [address] [place] [id number] [place] [address] 43123- 7508 Feb, [facility] [address] [place] [id number] [place] [address] 45861- 1064 Feb, Type 2 diabetes mellitus without complication, without long- term current use of insulin E11.9 ; ARIAS on CPAP G47.33 and Preoperative evaluation to rule out surgical contraindication Z01.818 [facility] [address] [place] [id number] [place] [address] 66938- 9232 Feb, Paranoid schizophrenia F20.0 and Depression with anxiety F41.8 [facility] [address] [id number] [place] [address] 59866- 4951 Jan, [facility] [address] [place] [id number] [place] [address] 29495- 5893 Jan, Paranoid schizophrenia F20.0 and Depression with anxiety F41.8 [facility] [address] 81122- 5444 Jan, [facility] [address] [place] [id number] [place] [address] 19592- 5799 Jan, Muscle strain T14.8 [facility] [address] [place] [id number] [place] [address] 60053- 4806 Jan, Paranoid schizophrenia F20.0 [facility] [address] 19471- 6518 Jan, [facility] [address] [place] [id number] [place] [address] 61166- 2403 Jan, Paranoid schizophrenia F20.0 and Depression with anxiety F41.8 [facility] [id number] [place] [address] 02165- 7261 Jan, [facility] [id number] [place] [address] 40687- 1728 Jan, [facility] [address] 88272- 7137 Dec, [facility] [address] [place] [id number] [place] [address] 83889- 3573 Dec, Paranoid schizophrenia F20.0 [facility] [address] [address] [address] [address]- 5937 16 Dec, 2015 Paranoid schizophrenia F20.0 and Depression with anxiety F41.8 [facility] [id number] [place] [phone] Nov, [facility] [id number] [place] [phone] Nov, Paranoid schizophrenia F20.0 [facility] [id number] [place] [address] [phone] [phone] Nov, Paranoid schizophrenia F20.0 and Depression with anxiety F41.8 [facility] [id number] [place] [phone] Nov, Type 2 diabetes mellitus without complication, without long- term current use of insulin E11.9 ; Paranoid schizophrenia F20.0 ; Chronic obstructive pulmonary disease, unspecified COPD type J44.9 ; Morbid obesity due to excess calories E66.01 and Parkinsonian tremor G20 [facility] [address] [id number] [address] Nov, [facility] [id number] [place] [address] 87026- 5085 Oct, Paranoid schizophrenia F20.0 [facility] [id number] [place] [address] 54861- 4747 Oct, Paranoid schizophrenia F20.0 [facility] [id number] [place] [address] 63563- 1260 Oct, Paranoid schizophrenia F20.0 and Depression with anxiety F41.8 [facility] [id number] [place] [address] 26676- 4710 Oct, [facility] [id number] [place] [address] 00708- 9258 Oct, Paranoid schizophrenia F20.0 and Depression with anxiety F41.8 [facility] [id number] [place] [address] 76329- 8976 Oct, Nasal sore J34.89 [facility] [id number] [place] [address] 70352- 4811 Oct, Type 2 diabetes mellitus without complication, without long- term current use of insulin E11.9 ; Depression with anxiety F41.8 ; Hypothyroidism, unspecified type E03.9 and History of lupus Z87.39 [facility] [id number] [place] [address] 69872- 5393 Oct, [facility] [id number] [place] [address] 31268- 7994 Oct, Type 2 diabetes mellitus without complication, [...] edema R60.9 and History of lupus Z87.39 [facility] [id number] [place] [address] 85755- 4258 Feb, [facility] [id number] [place] [address] 22219- 1832 Jan, [facility] [id number] [place] [address] 85091- 1438 Jan, [facility] [id number] [place] [address] 36462- 1815 Jan, [facility] [address] 85474- 8479 Dec, [facility] [id number] [place] [address] 91710- 1171 Nov, [facility] [address] 71733- 5076 Nov, [facility] [address] [facility] [id number] [place] [address]- 9453 Oct, [facility] [address] [facility] [id number] [place] [address]- 7200 Oct, [facility] [address] [facility] [id number] [place] [address]- 7394 Oct, [facility] [address] [facility] [id number] [place] [address] 76565- 2861 Sep, Allergic rhinitis 477.9 [facility] [id number] [place] [address], [place] [address]- 8007 Sep, Rhinitis, allergic 477.9 [facility] [id number] [place] [address]- 6169 Sep, Rhinitis, allergic 477.9 [facility] [id number] [place] [address]- 7880 Sep, [facility] [id number] [place] [address]- 4357 August, [facility] [address] [place] [address]- 2659 August, [facility] [address] [place] [address]- 3351 August, [facility] [address] [id number] [address] 3430 28 Jul, 2014 [facility] [address] [facility] [id number] [place] [address]- 2487 14 Jul, 2014 [facility] [address] [place] [address]- 0153 13 Jul, 2014 [facility] [address] [facility] [id number] [place] [address]- 3976 16 Jun, 2014 [facility] [address], [place] [address]- 8020 16 Jun, 2014 [facility] [place] [facility] [address] [id number] [place] [address]- 1325 Jun, [facility] [place] [facility] [address] [id number] [place] [address] Jun, [facility] [place] [facility] [address] [facility] [id number] [place] [address]- 5217 Jun, [facility] [place] [facility] [address] [id number] [place] [address]- 8088 Jun, [facility] [place] [facility] [address] [id number] [place] [address]- 6487 Jun, [facility] [place] [facility] [address] [facility] [id number] [place] [address]- 7806 Jun, [facility] [place] [facility] [address] [facility] [id number] [place] [address]- 5496 May, [facility] [place] [facility] [address] [id number] [place] [address]- 5371 May, [facility] [place] [facility] [address] [id number] [place] [address]- 1384 May, [facility] [place] [facility] [address] [facility] [id number] [place] [address]- 7145 May, [facility] [place] [facility] [address] [facility] [id number] [place] [address]- 0010 Apr, [facility] [place] [facility] [address] [id number] [place] [address]- 9457 Mar, [facility] [place] [facility] [address] [id number] [place] [address]- 6114 Mar, [facility] [place] [facility] [address] [facility] [id number] [place] [address]- 9954 Mar, [facility] [place] [facility] [address] [facility] [id number] [place] [address]- 4804 Mar, [facility] [place] [facility] [address] [id number] [place] [address]- 2045 06 Mar, 2014 [facility] [place] [facility] [address] [id number] [place]10 Mar, [facility] [place] [facility] [address] [id number] [place] [address]- 3302 Mar, [facility] [place] [facility] [address] [id number] [place] [address]- 5653 Mar, [facility] [place] [facility] [address] [id number] [place] [address]- 6109 Mar, [facility] [place] [facility] [address] [id number] [place] [address]- 7169 Feb, [facility] [place] [facility] [address] [id number] [place] [address]- 1601 Feb, [facility] [place] [facility] [address] [id number] [place] [address]- 5415 Feb, [facility] [place] [facility] [address] [id number] [place] [address]- 7388 Feb, [facility] [place] [facility] [address] [id number] [place] [address]- 8742 Feb, [facility] [place] [facility] [address] [id number] [place] [address]- 6378 Feb, [facility] [place] [facility] [address] [id number] [place] [address]- 6966 Feb, [facility] [place] [facility] [address] [id number] [place] [address]- 7815 Feb, [facility] [place] [facility] [address] [id number] [place] [address]- 1017 Jan, [facility] [place] [facility] [address] [id number] [place] [address]- 5026 Jan, [facility] [place] [facility] [address] [id number] [place] [address]- 2750 16 Jan, 2014 [facility] [place] [facility] [address] [id number] [place] [address]- 5653 16 Jan, 2014 [facility] [place] [facility] [address] [id number] [place] [address]- 0812 15 Jan, 2014 [facility] [place] [facility] [address] [id number] [place] [address]- 4720 15 Jan, 2014 [facility] [place] [facility] [address] [id number] [place] [address]- 4490 14 Jan, 2014 [facility] [place] [facility] [address] [id number] [place] [address]- 3649 14 Jan, 2014 [facility] [place] [facility] [address] [id number] [place] [address]- 4188 14 Jan, 2014 [facility] [place] [facility] [address] [id number] [place] [address]- 8263 14 Jan, 2014 [facility] [place] [facility] [address] [id number] [place] [address]- 4474 18 Dec, 2013 [facility] [place] [facility] [address] [id number] [place] [address]- 5248 18 Dec, 2013 [facility] [place] [facility] [address] [id number] [place] [address]- 5447 10 Dec, 2013 [facility] [place] [facility] [address] [id number] [place] [address]- 1231 10 Dec, 2013 [facility] [place] [facility] [address] [id number] [address]- 3515 Nov, [facility] [place] [facility] [address] [id number] [place] [address]- 5738 Nov, [facility] [place] [facility] [address] [id number] [place] [address]- 8224 Nov, [facility] [place] [facility] [address] [id number] [place] [address]- 5168 Nov, [facility] [place] [facility] [address] [id number] [place] [address]- 5274 Nov, [facility] [place] [facility] [address] [id number] [place] [address]- 9434 Oct, [facility] [place] [facility] [address] [id number] [place] [address]- 0826 Oct, [facility] [place] [facility] [address] [id number] [place] [address]- 9881 Oct, [facility] [place] [facility] [address] [id number] [place] [address]- 4205 Oct, [facility] [place] [facility] [address] [id number] [place] [address]- 0837 Sep, [facility] [place] [facility] [address] [id number] [place] [address]- 9897 Sep, [facility] [place] [facility] [address] [id number] [place] [address]- 5071 Sep, [facility] [place] [facility] [address] [id number] [place] [address]- 0508 Sep, [facility] [place] [facility] [address] [id number] [place] [address]- 0864 Sep, [facility] [place] [facility] [address] [id number] [place] [address]- 1333 Sep, [facility] [place] [facility] [address] [id number] [place] [address]- 2864 Sep, [facility] [place] [facility] [address] [id number] [place] [address]- 1880 Sep, [facility] [place] [facility] [address] [id number] [place] [address]- 4880 August, [facility] [place] [facility] [address] [id number] [place] [address]- 6815 August, [facility] [place] [facility] [address] [id number] [place] [address]- 1139 August, [facility] [place] [facility] [address] [id number] [place] [address]- 7178 August, [facility] [place] [facility] [address] [id number] [place] [address]- 9920 August, [facility] [place] [facility] [address] [id number] [place] [address]- 1543 August, [facility] [place] [facility] [address] [id number] [place] [address]- 2750 August, [facility] [place] [facility] [address] [id number] [place] [address]- 7082 Jul, [facility] [place] [facility] [address] [id number] [place] [address]- 4440 Jul, [facility] [place] [facility] [address] [id number] [place] [address]- 7207 Jul, [facility] [place] [facility] [address] [id number] [place] [address]- 7718 Jul, [facility] [place] [facility] [address] [id number] [place] [address]- 8277 Jul, [facility] [place] [facility] [address] [id number] [place] [address]- 4321 Jul, [facility] [place] [facility] [address] [id number] [place] [address]- 5400 Jul, [facility] [place] [facility] [address] [id number] [place] [address]- 9134 Jul, [facility] [place] [facility] [address] [id number] [place] [address]- 1025 Jul, [facility] [place] [facility] [address] [id number] [place] [address]- 0671 Jul, [facility] [place] [facility] [address] [id number] [place] [address]- 2372 Jul, [facility] [place] [facility] [address] [id number] [address]- 0775 Jul, [facility] [place] [facility] [address] [id number] [place] [address]- 8112 Jun, [facility] [place] [facility] [address] [id number] [place] Jun, [facility] [place] [facility] [address] [facility] [id number] [place] [address]- 0252 Jun, [facility] [place] [facility] [address] [id number] [place] [address]- 5336 Jun, [facility] [place] [facility] [address] [id number] [place] [address]- 7899 Jun, [facility] [place] [facility] [address] [facility] [id number] [place] [address]- 7512 May, [facility] [place] [facility] [address] [facility] [id number] [place] [address]- 9526 May, [facility] [place] [facility] [address] [facility] [id number] [place] [address]- 7769 May, [facility] [place] [facility] [address] [facility] [id number] [place] [address]- 5723 May, [facility] [place] [facility] [address] [facility] [id number] [place] [address]- 9907 May, [facility] [place] [facility] [address] [facility] [id number] [place] [address]- 0744 May, [facility] [place] [facility] [address] [facility] [id number], [place] [address]- 7215 May, [facility] [place] [facility] [address] [facility] [id number] [place] [address]- 3742 May, [facility] [place] [facility] [address] [facility] [id number] 1702 Mar, [facility] [place] [facility] [address] [facility] [id number], [place] [address]- 4355 Mar, [facility] [place] [facility] [address] [id number] [place] [address]- 0411 Mar, [facility] [place] [facility] [address] [id number] [place] [address]- 1260 Mar, [facility] [place] [facility] [address] [id number] [place] [address]- 7578 Mar, [facility] [place] [facility] [address] [id number] [place] [address]- 8411 Mar, [facility] [place] [facility] [address] [id number] [place] [address]- 4928 Feb, [facility] [place] [facility] [address] [id number] [place] [address]- 3050 Feb, [facility] [place] [facility] [address] [id number] [place] [address]- 8734 Jan, [facility] [place] [facility] [address] [id number] [place] [address]- 7599 Jan, [facility] [place] [facility] [address] [id number] [place] [address]- 1965 Jan, [facility] [place] [facility] [address] [id number] [place] [address]- 2627 Jan, [facility] [place] [facility] [address] [id number] [place] [address]- 5954 Jan, [facility] [place] [facility] [address] [id number] [place] [address]- 0754 Jan, [facility] [place] [facility] [address] [id number] [place] [address]- 9661 Jan, [facility] [place] [facility] [address] [id number] [place] [address]- 8771 Jan, [facility] [place] [facility] [address] [id number] [place] [address]- 3643 08 Jan, 2013 [facility] [place] [facility] [address] [id number] [place] [address]- 0416 Jan, [facility] [address] [id number] [place] [address]- 8620 Dec, [facility] [place] [facility] [address] [id number] [place] [address]- 1836 Nov, [facility] [place] [facility] [address] [id number] [place] [address] 2546 Nov, [facility] [place] [facility] [address] [id number] [place] [address]- 1028 Nov, [facility] [place] [facility] [address] [id number] [place] [address]- 3187 Oct, [facility] [place] [facility] [address] [id number] [place] [address]- 6789 Oct, [facility] [place] [facility] [address] [id number] [place] [address]- 6176 August, [facility] [place] [facility] [address] [id number] [place] [address]- 6792 Apr, [facility] [place] [facility] [address] [id number] [place] [address]- 3163 Apr, [facility] [place] [facility] [address] [id number] [place] [address]- 2891 Feb, [facility] [place] [facility] [address] [id number] [place] [address]- 2471 Feb, [facility] [place] [facility] [address] [id number] [place] [address]- 3253 Dec, [facility] [place] [facility] [address] [id number] [place] [address]- 1597 Dec, [facility] [place] [facility] [address] [id number] [place] [address]- 5548 Oct, [facility] [place] [facility] [address] [id number] [place] [address]- 8368 Oct, [facility] [place] [facility] [address] [id number] [place] [address]- 6856 Oct, [facility] [address] [facility] [id number] [place] [address]- 3569 Jul, IMMUNIZATIONS No Known Immunizations SOCIAL HISTORY [...] psychosis/mental illness , last one in [facility] 4 years ago
[2018-09-02] MEDS ORDERED: KETOROLAC 30 MG/ML VIAL IVP ONE (13:45)
[2018-09-02] MEDS ORDERED: HYDROmorphone 2 MG/ML VIAL (DILAUDID) IV ONE ×3 (13:45→16:00)
--- OUTSIDE RECORDS SUMMARY | 2018-09-02 13:45 | XMS REPORT ---
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 Name Role Phone UMESH PINEDA Unavailable PROBLEMS Type Condition ICD9-CM Code TTJ17-TR Code Onset Dates Condition Status SNOMED Code Problem OAB (overactive bladder) N32.81 Active 504022506 Problem Depression with anxiety F41.8 Active 344917752 Problem Other seasonal allergic rhinitis J30.2 Active 493270078 Problem Chronic obstructive pulmonary disease, unspecified COPD type J44.9 Active 04693755 Problem Tobacco abuse Z72.0 Active 578338292 Problem Morbid obesity due to excess calories E66.01 Active 031981527 Problem Dyslipidemia E78.5 Active 428256512 Problem Hypothyroidism (acquired) E03.9 Active 467748429 Problem Essential hypertension I10 Active 43184579 Problem Diabetic polyneuropathy associated with type 2 diabetes mellitus E11.42 Active 604218645 Problem Type 2 diabetes mellitus with diabetic neuropathic arthropathy, 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 Active 773395850 Problem Type 2 diabetes mellitus without complication, without long-term current use of insulin E11.9 Active 638982313 Problem Paranoid schizophrenia F20.0 Active 14134343 Problem Chronic pain syndrome G89.4 Active 907896173 Problem Migraine without aura and without status migrainosus, not intractable G43.009 Active 684123496 Problem Gastroesophageal reflux disease, esophagitis presence not specified K21.9 Active 719032143 Problem Seasonal allergic rhinitis due to pollen J30.1 Active 20743481 Problem COPD exacerbation J44.1 Active 077357489 Problem Seasonal allergic rhinitis due to other allergic trigger J30.89 Active 519862622 Problem Schizoaffective disorder, depressive type F25.1 Active 96396028 Problem History of lupus Z87.39 Active 273953307 Problem Gastroesophageal reflux disease without esophagitis K21.9 Active 234209085 Problem Menopausal syndrome (hot flashes) N95.1 Active 252602448 Problem Other allergic rhinitis J30.89 Active 138695601 Problem Primary insomnia F51.01 Active 8790828 Problem DM neuro manif type II E11.49 Active 79440551 ALLERGIES No Information ENCOUNTERS Encounter Location Date Diagnosis [place] [address], [place] [address] 05 Dec, 2017 [place] [address] [place] [id number] [place] [address] 86036- 8794 Nov, [place] [address] [place] [id number] [place] [address] 81860- 9612 Nov, [place] [address] [place] [id number] [place] [address] 24211- 0234 Nov, Paranoid schizophrenia F20.0 [place] [address] [place] [address] 94209- 8791 Nov, Gastroesophageal reflux disease, esophagitis presence not specified K21.9 [place] [address], [place] [address] 67[address] Oct, Paranoid schizophrenia F20.[id number] [address] Oct Chronic pain syndrome G89.4 and Schizoaffective disorder, depressive type F25.1 [place] [address], [place] [address] Oct, Chronic pain syndrome G89.4 and Schizoaffective disorder, depressive type F25.1 [place] [address] [place] [address] 17523- 8975 Oct, Type 2 diabetes mellitus without complication, without long- term current use of insulin E11.9 [place] [address], [place] [address] 12 Oct, 2017 Essential hypertension I10 and DM neuro manif type II E11.49 [place] [address] [place] [address] 47598- 6841 Oct, [facility] [address], [place] [address] 36[address] Oct, Schizoaffective disorder, depressive type F25.1 and BMI 45.0 -49.9, adult Z68.42 [facility] [address] [id number] [address] Oct, [facility] [address] [place] [id number] [place] [address] 86857- 7919 Oct, Paranoid schizophrenia F20.0 [place] [address] [place] [id number] [place] [address] 92025- 8909 Oct, Type 2 diabetes mellitus with diabetic neuropathic arthropathy, 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 ; Essential hypertension I10 ; Hypothyroidism (acquired) E03.9 ; Chronic obstructive pulmonary disease, unspecified COPD type J44.9 and Diabetic polyneuropathy associated with type 2 diabetes mellitus E11.42 [place] [address] [place] [id number] [place] [address] 54295- 3663 Sep, Paranoid schizophrenia F20.0 [place] [address] [place] [id number] [place] [address] 61141- 7455 Sep, Paranoid schizophrenia F20.0 and BMI 45.0-49.9, adult Z68.42 [facility] [address], [place] [address] 5069 Sep, Schizoaffective disorder, depressive type F25.1 [facility] [address], [place] [address] 1407 Sep, [facility] [address] [place] [id number] [place] [address] 42392- 3162 Sep, Paranoid schizophrenia F20.0 [facility] [address] [place] [id number] [place] [address] 38361- 3743 Sep, [facility] [address] [place] [id number] [place] [address] 52673- 2139 Sep, Hypothyroidism (acquired) E03.9 [facility] [address] [place] [id number] [place] [address] 60640- 2728 Sep, [facility] [address] [place] [id number] [place] [address] 32750- 5334 August, Schizoaffective disorder, depressive type F25.1 [facility] [address] 22109- 9606 August, [facility] [address] 94296- 8388 August, [facility] [address] 49980- 6754 August, [facility] [address] 94053- 3525 August, Paranoid schizophrenia F20.0 [facility] [address] 47908- 1307 August, History of lupus Z87.39 and Chronic pain syndrome G89.4 [facility] [address] [place] [id number] [place] [address] 41597- 3416 August, [facility] [address] [place] [id number] [place] [address] 78706 -9071 August, Seasonal allergic rhinitis, unspecified trigger J30.2 and BMI 45.0-49.9, adult Z68.42 [facility] [address] [place] [id number] [place] [address] 08959- 0716 Jul, Schizoaffective disorder, depressive type F25.1 [facility] [address] [place] [id number] [place] [address] 44205- 8925 Jul, [facility] [address] [place] [id number] [place] [address] 40747- 4082 Jul, Hypothyroidism (acquired) E03.9 [facility] [address] 19179- 6045 Jul, Chronic obstructive pulmonary disease, unspecified COPD type J44.9 and Type 2 diabetes mellitus without complication, without long-term current use of insulin E11.9 [place] [address] 12890- 7932 Jul, Paranoid schizophrenia F20.0 [place] [address] 21186- 0382 Jun, Hypothyroidism (acquired) E03.9 and Seasonal allergic rhinitis due to pollen J30.1 [facility] [address] 05902 -2251 Jun, Shortness of breath at rest R06.02 ; COPD exacerbation J44.1 and BMI 45.0-49.9, adult Z68.42 [place] [address] 99774- 3636 Jun, [place] [address] 68997- 1930 Jun, Paranoid schizophrenia F20.0 ; Depression with anxiety F41.8 and BMI 45.0-49.9, adult Z68.42 [place] [address] 23991- 1495 Jun, Schizoaffective disorder, depressive type F25.1 [facility] [address] [id number] Jun, 2017 Dental caries K02.9 [place] [address] 38425- 2593 Jun, Paranoid schizophrenia F20.0 [place] [address] 57126- 9354 May, Migraine without aura and without status migrainosus, not intractable G43.009 ; DM neuro manif type II E11.49 and Type 2 diabetes mellitus without complication, without long-term current use of insulin E11.9 [place] [address] [place] [address]- 8498 May, Migraine without aura and without status migrainosus, not intractable G43.009 [facility] [address] [place] [id number] [place] [address] 84105- 3292 May, Depression with anxiety F41.8 [facility] [address] [place] [address] [id number] May, [facility] [address] [place] [id number] [place] [address] 79209- 3748 May, [place] [address] 55094- 8590 May, [place] [address] 21901- 3055 May, Hypothyroidism (acquired) E03.9 [place] [address] 54149- 6993 May, Paranoid schizophrenia F20.0 [facility] [address] [place] [id number] [place] [address] 18608- 7328 May, Type 2 diabetes mellitus without complication, [...] N32.81 and Controlled substance agreement signed Z79.899 [place] [address] [place] [id number] [place] [address] 92550- 5039 May, Controlled substance agreement signed Z79.899 [place] [address] [place] [id number] [place] [address] 88672- 7356 Apr, [facility] [address] [place] [id number] [id number] Apr, Dental examination Z01.20 [facility] [address] [place] [id number] [place] [address] 91602- 6520 Apr, Paranoid schizophrenia F20.0 [facility] [address] [place] [id number] [place] [address] 25180- 6088 Apr, Hypertension, unspecified type I10 [facility] [address] [place] [id number] [place] [address] 52418- 8074 Apr, Paranoid schizophrenia F20.0 [facility] [address] [place] [id number] [place] [address] 46220- 2785 Apr, [facility] [address] [place] [id number] [place] [address] 34768- 2624 Apr, Tobacco abuse Z72.0 [facility] [address] [place] [id number] [place] [address] 83862- 6629 Apr, [facility] [address] [place] [id number] [place] [address] 19676- 4581 Mar, [facility] [address] [place] [id number] [place] [address] 37725- 4262 Mar, Paranoid schizophrenia F20.0 and BMI 45.0-49.9, adult Z68.42 [facility] [address] [place] [address] 63587- 0206 Mar, Schizoaffective disorder, depressive type F25.1 [facility] [address] [place] [id number] [place] [address] 55460- 8043 Mar, [facility] [address] [place] [id number] [place] [address] 46554- 4712 Mar, Hypothyroidism, unspecified type E03.9 [facility] [address] [place] [id number] [place] [address] 16629- 0064 Mar, Schizoaffective disorder, depressive type F25.1 [facility] [address] [place] [id number] [place] [address] 42042 -2380 Feb, Gastroenteritis K52.9 and BMI 45.0-49.9, adult Z68.42 [facility] [address] [place] [id number] [place] [address] 89939- 1837 Feb, [facility] [address] 36925- 2664 Feb, [place] [address] 66407- 9732 Feb, [place] [address] 59416- 3132 Feb, [place] [address] 92386- 5283 Feb, Paranoid schizophrenia F20.0 [facility] [address] 38525- 0252 Feb, Gastroesophageal reflux disease without esophagitis K21.9 ; Other seasonal allergic rhinitis J30.2 ; Other allergic rhinitis J30.89 ; Tobacco abuse Z72.0 and BMI 40.0-44.9, adult Z68.41 [place] [address] [place] [id number] [place] [address] 60538- 5928 Feb, Onychomycosis B35.1 ; Callus of foot L84 and DM neuro manif type II E11.49 [facility] [address] [place] [id number] [place] [address] 86717- 6302 Jan, Chronic allergic rhinitis J30.9 [place] [address] 27185- 7834 Jan, [facility] [address] [place] [id number] [place] [address] 91735- 0732 Jan, Schizoaffective disorder, depressive type F25.1 [place] [address] [place] [address]- 8364 10 Jan, 2017 [facility] [address] [place] [id number] [place] [address] 27886 -1664 07 Jan, 2017 Sore throat J02.9 and Seasonal allergic rhinitis due to other allergic trigger J30.89 [facility] [address] [place] [id number] [place] [address] 69358- 1065 04 Jan, 2017 [facility] [address] [place] [id number] [place] [address] 84922- 0962 Jan, [facility] [address] [place] [id number] [place] [address] 19061 -8937 Jan, Chronic allergic rhinitis J30.9 [facility] [address] [place] [id number] [place] [address] 66284- 2035 27 Dec, 2016 Paranoid schizophrenia F20.0 ; Primary insomnia F51.01 and Schizoaffective disorder, depressive type F25.1 [facility] [address] [place] [id number] [place] [address] 75096- 4746 Dec, Chronic pain syndrome G89.4 ; Cervicalgia of occipito- atlanto-axial region M54.2 ; Menopausal syndrome (hot flashes) N95.1 and Encounter for immunization Z23 [facility] [address] [place] [id number] [place] [address] 71414- 6300 14 Dec, 2016 [place] [address] [place] [id number] [place] [address] 63990- 1172 13 Dec, 2016 [place] [address] [place] [id number] [place] [address] 68956- 8133 08 Dec, 2016 Paranoid schizophrenia F20.0 [place] [address] [place] [id number] [place] [address] 80940- 0746 Dec, Schizoaffective disorder, depressive type F25.1 [facility] [address] [place] [id number] [place] [address] 65739- 5896 Nov, Hypothyroidism, unspecified type E03.9 [facility] [address], [place] [address]79 Nov, Acute seasonal allergic rhinitis due to other allergen J30.89 [place] [address] [place] [id number] [place] [address] 69526- 3167 Nov, [facility] [address] [place] [id number] [place] [address] 65795- 6237 Nov, Hypothyroidism, unspecified type E03.9 and Other elevated white blood cell (WBC) count D72.828 [place] [address] [place] [id number] [place] [address] 22512- 7003 Nov, Schizoaffective disorder, depressive type F25.1 [place] [address] [place] [id number] [place] [address] 41657- 3626 Nov, Paranoid schizophrenia F20.0 [place] [address] [place] [id number] [place] [address] 61387- 3519 Nov, Type 2 diabetes mellitus without complication, without long- term current use of insulin E11.9 ; Morbid obesity due to excess calories E66.01 and Chronic pain syndrome G89.4 [place] [address] [place] [id number] [place] [address] 25109- 1076 Oct, Paranoid schizophrenia F20.0 [place] [address] [place] [id number] [place] [address] 27966- 1503 Oct, [place] [address] [place] [id number] [place] [address] 74359- 0992 Oct, Schizoaffective disorder, depressive type F25.1 [place] [address] [place] [id number] [place] [address] 78788- 4065 Oct, Hypothyroidism, unspecified type E03.9 and Other elevated white blood cell (WBC) count D72.828 [place] [address] [place] [address] [place] [address] 50903- 2216 Oct, Morbid obesity due to excess calories E66.01 ; Chronic obstructive pulmonary disease, unspecified COPD type J44.9 ; History of lupus Z87.39 ; Hypothyroidism, unspecified type E03.9 ; Gastroesophageal reflux disease without esophagitis K21.9 ; Primary insomnia F51.01 and Chronic pain syndrome G89.4 [facility] [address] [place] [address] 44262- 5441 Sep, [facility] [address] [place] [id number] [place] [address] 46642- 3357 Sep, [facility] [address] [place] [id number] [place] [address] 23756- 3583 Sep, [facility] [address] [place] [id number] [place] [address] 66553- 7721 Sep, Paranoid schizophrenia F20.0 [facility] [address] [place] [id number] [place] [address] 89322- 4600 Sep, [facility] [address] [place] [id number] [place] [address] 78016- 1343 Sep, Paranoid schizophrenia F20.0 [facility] [address] [place] [id number] [place] [address] 30361- 1415 Sep, [facility] [address] [place] [id number] [place] [address] 55810- 4690 August, Paranoid schizophrenia F20.0 [facility] [address] [place] [id number] [place] [address] 20134- 0931 Jul, [facility] [address] [place] [id number] [place] [address] 61638- 3723 Jul, Type 2 diabetes mellitus without complication, [...] [facility] [address] [place] [address] [id number] Jul, Dental examination Z01.20 [facility] [address] [place] [id number] [place] [address] 98219- 3757 07 Jul, 2016 Paranoid schizophrenia F20.0 [place] [address] [place] [address] [place] [address] 44731- 6042 13 Jun, 2016 Paranoid schizophrenia F20.0 and Depression with anxiety F41.8 [place] [address] [place] [id number] [place] [address] 02023- 5677 10 Jun, 2016 Paranoid schizophrenia F20.0 and Depression with anxiety F41.8 [place] [address] [place] [id number] [place] [address] 37983- 8654 09 Jun, 2016 [place] [address] [place] [id number] [place] [address] 94011- 4528 Jun, [facility] [place] [address] [place] [id number] [place] [address] 89479 -2990 Jun, Seasonal allergic rhinitis due to other allergic trigger J30.89 [facility] [place] [address] [place] [id number] [place] [address] 90558 -9777 May, Sore throat J02.9 ; Other viral agents as the cause of diseases classified elsewhere B97.89 and Acute upper respiratory infection, unspecified J06.9 [place] [address] [place] [id number] [place] [address] 15881- 2106 May, Paranoid schizophrenia F20.0 and Depression with anxiety F41.8 [place] [address] [place] [id number] [place] [address] 79928- 2144 Apr, Other seasonal allergic rhinitis J30.2 [place] [address] [place] [address] [place] [address] 77678- 7145 Apr, Paranoid schizophrenia F20.0 and Depression with anxiety F41.8 [facility] [address] [place] [id number] [place] [address] 57608 -2346 Apr, Bronchitis J40 and Sore throat J02.9 [facility] [address] [place] [address] 86049- 7196 Apr, Type 2 diabetes mellitus without complication, without long- term current use of insulin E11.9 [facility] [address] [place] [address] 72616 -5185 Apr, Bronchitis J40 [facility] [address] [place] [id number] [place] [address] 54840- 7521 Apr, [facility] [address] [id number] [place] [address] 93693- 9159 Apr, [place] [address] [place] [id number] [place] [address] 80233- 8194 Mar, Type 2 diabetes mellitus without complication, [...] R60.9 and Other seasonal allergic rhinitis J30.2 [place] [address] [place] [address] [place] [address] 66054- 6900 Mar, Paranoid schizophrenia F20.0 and Depression with anxiety F41.8 [facility] [address] [place] [id number] [place] [address] 68998- 8192 Feb, [facility] [address] [place] [id number] [place] [address] 96891- 4430 Feb, [place] [address] [place] [id number] [place] [address] 00730- 5595 Feb, [place] [address] [place] [id number] [place] [address] 58879- 3097 Feb, [facility] [address] [id number] [place] [address] 37150- 5586 14 Nov, 2016 Type 2 diabetes mellitus without complication, without long- term current use of insulin E11.9 ; ARIAS on CPAP G47.33 and Preoperative evaluation to rule out surgical contraindication Z01.818 [facility] [address] [place] [id number] [place] [address] 58259- 1189 Feb, Paranoid schizophrenia F20.0 and Depression with anxiety F41.8 [facility] [address] [id number] [place] [address] 26410- 6495 Jan, [facility] [address] [id number] [place] [address] 30422- 2544 Jan, Paranoid schizophrenia F20.0 and Depression with anxiety F41.8 [facility] [address] 88202- 9047 Jan, [facility] [address] 57122- 8661 Jan, Muscle strain T14.8 [facility] [address] [id number] [place] [address] 19705- 8625 Jan, Paranoid schizophrenia F20.0 [facility] [address] 12050- 4956 Jan, [facility] [address] [id number] [place] [address] 37184- 2303 Jan, Paranoid schizophrenia F20.0 and Depression with anxiety F41.8 [facility] [address] [id number] [place] [address] 25201- 3476 Jan, [facility] [id number] [place] [address] 67102- 8080 Jan, [facility] [address] 94005- 7895 Dec, [facility] [address] [id number] [place] [address] 22968- 0801 Dec, Paranoid schizophrenia F20.0 [facility] [address] [place] [address] 16 Dec, 2015 Paranoid schizophrenia F20.0 and Depression with anxiety F41.8 [facility] [id number] [place] [address] [id number] Nov, [facility] [id number] [place] [address] [phone] Nov, Paranoid schizophrenia F20.0 [facility] [id number] [place] [address] [phone] Nov, Paranoid schizophrenia F20.0 and Depression with anxiety F41.8 [facility] [id number] [place] [address] [phone]- [phone] 05 Nov, 2015 Type 2 diabetes mellitus without complication, without long- term current use of insulin E11.9 ; Paranoid schizophrenia F20.0 ; Chronic obstructive pulmonary disease, unspecified COPD type J44.9 ; Morbid obesity due to excess calories E66.01 and Parkinsonian tremor G20 [facility] [id number] [place] [address] [id number] Nov, [facility] [id number] [place] [address] [phone]- [phone] Oct, Paranoid schizophrenia F20.0 [facility] [id number] [place] [address] [phone] Oct, Paranoid schizophrenia F20.0 [facility] [id number] [place] [address] [id number]- [phone] Oct, Paranoid schizophrenia F20.0 and Depression with anxiety F41.8 [facility] [id number] [place] [address] [phone] Oct, [facility] [id number] [place] [address] [phone]- [phone] Oct, Paranoid schizophrenia F20.0 and Depression with anxiety F41.8 [facility] [facility] [id number] [place] [address]86- 0819 Oct, Nasal sore J34.89 [facility] [id number] [place] [address] 04983- 3700 Oct, Type 2 diabetes mellitus without complication, without long- term current use of insulin E11.9 ; Depression with anxiety F41.8 ; Hypothyroidism, unspecified type E03.9 and History of lupus Z87.39 [place] [address] [address]- [address]40 Oct, [place] [id number] [place] [address] 96522- 1862 Oct, Type 2 diabetes mellitus without complication, [...] edema R60.9 and History of lupus Z87.39 [place] [id number] [place] [address] 95020- 6432 Feb, [place] [id number] [place] [address] 93305- 6376 Jan, [place] [id number] [place] [address] 56534- 8439 Jan, [place] [id number] [place] [address] 94598- 1937 Jan, [place] [address] [address]- 4756 Dec, [place] [id number] [place] [address] 12450- 7935 Nov, [place] [address] 26022- 3439 Nov, [facility] [address] [facility] [id number] [place] [address]- 6248 Oct, [facility] [address] [facility] [id number] 7226 Oct, [facility] [address] [id number] [place] [address] 9843 Oct, [facility] [address] [id number] [address] 1667 Sep, Allergic rhinitis 477.9 [facility] [id number] [place] [address] 49886- 3880 Sep, Rhinitis, allergic 477.9 [facility] [id number], [place] [address] 8728 Sep, Rhinitis, allergic 477.9 [facility] [id number], [place] [address] 6903 Sep, [facility] [address] [id number] [place] [address]- 2344 August, [facility] [id number], [place] [address]- 9661 August, [facility] [id number], [place] [address]- 1010 August, [facility] [address] [id number], [place] [address]- 0919 28 Jul, 2014 [facility] [place] [facility] [address] [id number] [place] [address]- 6951 14 Jul, 2014 [facility] [place] [facility] [address] [id number] [place] [address]- 3865 13 Jul, 2014 [facility] [place] [facility] [address] [id number], [place] [address]- 8495 16 Jun, 2014 [facility] [place] [facility] [address]65[address], [place] [address]- 5202 16 Jun, 2014 [facility] [place] [facility] [address] [id number] [place] [address]- 2791 Jun, [facility] [place] [facility] [address] [id number] [place] [address]- 5532 Jun, [facility] [place] [facility] [address] [facility] [id number] [place] [address]- 1755 Jun, [facility] [place] [facility] [address] [id number] [place] [address]- 9179 Jun, [facility] [place] [facility] [address] [id number] [place] [address]- 4631 Jun, [facility] [place] [facility] [address] [facility] [id number] [place] [address]- 1472 Jun, [facility] [place] [facility] [address] [facility] [id number] [place] [address]- 2344 May, [facility] [place] [facility] [address] [facility] [id number] [place] [address]- 5481 May, [facility] [place] [facility] [address] [facility] [id number] [place] [address]- 9832 May, [facility] [place] [facility] [address] [facility] [id number] [place] [address]- 1119 May, [facility] [place] [facility] [address] [facility] [id number] [place] [address]- 9857 Apr, [facility] [place] [facility] [address] [facility] [id number] [place] [address]- 3822 Mar, [facility] [place] [facility] [address] [id number] [place] [address]- 0882 Mar, [facility] [place] [facility] [address] [facility] [id number] [place] [address]- 6266 Mar, [facility] [place] [facility] [address] [facility] [id number] [place] 0338 Mar, [facility] [place] [facility] [address] [id number] [place] [address]- 4315 06 Mar, 2014 [facility] [place] [facility] [address] [id number] [place] 4788 Mar, [facility] [place] [facility] [address] [id number] [place] [address]- 5341 Mar, [facility] [place] [facility] [address] [id number] [place] [address]- 3640 Mar, [facility] [place] [facility] [address] [id number] [place] 8105 Mar, [facility] [place] [facility] [address] [id number] [place] [address]- 0504 Feb, [facility] [place] [facility] [address] [id number] [place] [address]- 4803 Feb, [facility] [place] [facility] [address] [id number] [place] [address]- 4125 Feb, [facility] [place] [facility] [address] [id number] [place] [address]- 1762 Feb, [facility] [place] [facility] [address] [id number] [place] [address]- 7603 Feb, [facility] [place] [facility] [address] [id number] [place] [address]- 8731 Feb, [facility] [place] [facility] [address] [id number] [place] [address]- 0817 Feb, [facility] [place] [facility] [address] [id number] [place] [address]- 3400 Feb, [facility] [place] [facility] [address] [id number] [place] 2593 Jan, [facility] [place] [facility] [address] [id number] [place] 8309 Jan, [facility] [place] [facility] [address] [id number] [place] [address]- 0768 16 Jan, 2014 [facility] [place] [facility] [address] [id number] [place] [address]- 1786 16 Jan, 2014 [facility] [place] [facility] [address] [id number] [place] [address]- 0368 15 Jan, 2014 [facility] [place] [facility] [address] [id number] [place] [address]- 6518 15 Jan, 2014 [facility] [place] [facility] [address] [id number] [place] [address]- 4184 14 Jan, 2014 [facility] [place] [facility] [address] [id number] [place] [address]- 6888 14 Jan, 2014 [facility] [place] [facility] [address] [id number] [place] [address]- 7776 14 Jan, 2014 [facility] [place] [facility] [address] [id number] [place] [address]- 0794 14 Jan, 2014 [facility] [place] [facility] [address] [id number], [place] [address]- 7198 18 Dec, 2013 [facility] [place] [facility] [address] [id number] [place] [address]- 1264 18 Dec, 2013 [facility] [place] [facility] [address] [id number] [place] [address]- 0343 10 Dec, 2013 [facility] [place] [facility] [address] [id number], [place] [address]- 8021 10 Dec, 2013 [facility] [place] [facility] [address] [id number][place] [address]- 5006 Nov, [facility] [place] [facility] [address] [id number] [place] [address]- 6785 Nov, [facility] [place] [facility] [address] [id number] [place] [address]- 7210 Nov, [facility] [place] [facility] [address] [id number] [place] [address]- 8350 Nov, [facility] [place] [facility] [address] [id number] [place] [address]- 7853 Nov, [facility] [place] [facility] [address] [id number] [place] [address]- 2447 Oct, [facility] [place] [facility] [address] [id number] [place] [address]- 9559 Oct, [facility] [place] [facility] [address] [id number] [place] [address]- 6280 Oct, [facility] [place] [facility] [address] [id number] [place] [address]- 7741 Oct, [facility] [place] [facility] [address] [id number] [place] [address]- 0755 Sep, [facility] [place] [facility] [address] [id number] [place] [address]- 2756 Sep, [facility] [place] [facility] [address] [id number] [place] [address]- 7236 Sep, [facility] [place] [facility] [address] [id number] [place] [address]- 8854 Sep, [facility] [place] [facility] [address] [id number] [place] [address]- 8400 Sep, [facility] [place] [facility] [address] [id number] [place] [address]- 5094 Sep, [facility] [place] [facility] [address] [id number] [place] [address]- 4618 Sep, [facility] [place] [facility] [address] [id number] [place] [address]- 4398 Sep, [facility] [place] [facility] [address] [id number] [place] [address]- 6498 August, [facility] [place] [facility] [address] [id number] [place] [address]- 2659 August, [facility] [place] [facility] [address] [id number] [place] [address]- 8907 August, [facility] [place] [facility] [address] [id number] [place] [address]- 0984 August, [facility] [place] [facility] [address] [id number] [place] [address]- 6877 August, [facility] [place] [facility] [address] [id number] [place] [address]- 8699 August, [facility] [place] [facility] [address] [id number] [place] [address]- 9841 August, [facility] [address] [id number] [place] [address]- 7201 Jul, [facility] [place] [facility] [address] [id number] [place] [address]- 5917 Jul, [facility] [place] [facility] [address] [id number] [place] [address]- 4924 Jul, [facility] [address] [id number] [place] [address]- 9988 Jul, [facility] [place] [facility] [address] [id number] [place] [address]- 6796 Jul, [facility] [place] [facility] [address] [id number] [place] [address]- 8422 Jul, [facility] [place] [facility] [address] [id number] [place] [address]- 6280 Jul, [facility] [place] [facility] [address] [id number] [place] [address]- 8969 Jul, [facility] [place] [facility] [address] [id number] [place] [address]- 3051 Jul, [facility] [place] [facility] [address] [id number] [place] [address]- 0658 Jul, [facility] [place] [facility] [address] [id number] [place] [address]- 2120 Jul, [facility] [place] [facility] [address] [id number] [place] [address]- 2158 Jul, [facility] [place] [facility] [address] [id number] [place] [address]- 6116 Jun, [facility] [place] [facility] [address] [id number] [place] 9682 Jun, [facility] [place] [facility] [address] [facility] [id number] [place] [address]- 0310 Jun, [facility] [place] [facility] [address] [id number] [place] [address]- 8682 Jun, [facility] [place] [facility] [address] [id number] [place] [address]- 3960 Jun, [facility] [place] [facility] [address] [id number] [place] [address]- 4908 May, [facility] [place] [facility] [address] [facility] [id number] [place] [address]- 1532 May, [facility] [place] [facility] [address] [facility] [id number] [place] [address]- 0912 May, [facility] [place] [facility] [address] [facility] [id number] [place] [address]- 7813 May, [facility] [place] [facility] [address] [facility] [id number] [place] [address]- 2572 May, [facility] [place] [facility] [address] [facility] [id number] [place] [address]- 1726 May, [facility] [place] [facility] [address] [facility] [id number] [place] [address]- 7088 May, [facility] [place] [facility] [address] [id number] [place] [address]- 9903 May, [facility] [place] [facility] [address] [facility] [id number] [place] 7785 Mar, [facility] [place] [facility] [address] [facility] [id number] [place] [address]- 7150 Mar, [facility] [place] [facility] [address] [id number] [place] [address]- 2466 Mar, [facility] [place] [facility] [address] [id number] [place] [address]- 0703 Mar, [facility] [place] [facility] [address] [id number] [place] [address]- 2122 Mar, [facility] [place] [facility] [address] [id number] [place] [address]- 8505 Mar, [facility] [address] [id number] [place] [address]- 7865 Feb, [facility] [place] [facility] [address] [id number] [place] [address]- 7650 Feb, [facility] [address] [id number] [place] [address]- 0277 Jan, [facility] [place] [facility] [address] [id number] [place] [address]- 9531 Jan, [facility] [place] [facility] [address] [id number] [place] [address]- 5511 Jan, [facility] [place] [facility] [address] [id number], [place] [address]- 1473 Jan, [facility] [place] [facility] [address] [id number] [place] [address]- 5391 Jan, [facility] [place] [facility] [address] [id number], [place] [address]- 0658 Jan, [facility] [place] [facility] [address] [id number] [place] [address]- 6106 Jan, [facility] [place] [facility] [address] [id number] [place] 5171 Jan, [facility] [place] [facility] [address] [id number], [place] [address]- 5945 Jan, [facility] [place] [facility] [address] [id number], [place] [address]- 3797 Jan, [facility] [place] [facility] [address] [id number] [place] [address]- 4631 Dec, [facility] [place] [facility] [address] [id number] [place] [address]- 8352 Nov, [facility] [place] [facility] [address] [id number] [place] [address]- 4973 Nov, [facility] [place] [facility] [address] [id number] [place] [address]- 0323 Nov, [facility] [place] [facility] [address] [id number] [place] [address]- 6942 Oct, [facility] [place] [facility] [address] [id number] [place] [address]- 8650 Oct, [facility] [place] [facility] [address] [id number] [place] [address]- 0615 August, [facility] [place] [facility] [address] [id number] [place] [address]- 3270 Apr, [facility] [place] [facility] [address] [id number] [place] [address]- 8046 Apr, [facility] [place] [facility] [address] [id number] [place] [address]- 8510 Feb, [facility] [place] [facility] [address] [id number] [place] [address]- 7948 Feb, [facility] [place] [facility] [address] [id number] [place] [address]- 7967 Dec, [facility] [place] [facility] [address] [id number] [place] 2131 Dec, [facility] [place] [facility] [address] [id number] [place] 1439 Oct, [facility] [place] [facility] [address] [id number] [place] 4398 Oct, [facility] [place] [facility] [address] [id number] [place] [address]- 1844 Oct, [facility] [address] [facility] [id number] [place] [address]- 8749 Jul, IMMUNIZATIONS No Known Immunizations SOCIAL HISTORY [...] illness , last one in [facility] 4 years ago
--- OUTSIDE RECORDS SUMMARY | 2018-09-02 13:46 | XMS REPORT ---
Author Author SOTO STRICKLAND Organization [facility] Address [address] [place] [address] Care Team Providers Care Mud Worker Name Role Phone SOTO STRICKLAND Unavailable PROBLEMS Type Condition ICD9-CM Code NZZ16-ET Code Onset Dates Condition Status SNOMED Code Problem OAB (overactive bladder) N32.81 Active 752960171 Problem Depression with anxiety F41.8 Active 167887057 Problem Other seasonal allergic rhinitis J30.2 Active 204637744 Problem Chronic obstructive pulmonary disease, unspecified COPD type J44.9 Active 57405392 Problem Tobacco abuse Z72.0 Active 065712332 Problem Morbid obesity due to excess calories E66.01 Active 610588454 Problem Dyslipidemia E78.5 Active 349591444 Problem Hypothyroidism (acquired) E03.9 Active 857862976 Problem Essential hypertension I10 Active 22333509 Problem Diabetic polyneuropathy associated with type 2 diabetes mellitus E11.42 Active 690830391 Problem Type 2 diabetes mellitus with diabetic neuropathic arthropathy, 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 Active 067352992 Problem Type 2 diabetes mellitus without complication, without long-term current use of insulin E11.9 Active 740784434 Problem Paranoid schizophrenia F20.0 Active 72514171 Problem Chronic pain syndrome G89.4 Active 811156306 Problem Migraine without aura and without status migrainosus, not intractable G43.009 Active 187050813 Problem Gastroesophageal reflux disease, esophagitis presence not specified K21.9 Active 484524550 Problem Seasonal allergic rhinitis due to pollen J30.1 Active 31131816 Problem COPD exacerbation J44.1 Active 799548263 Problem Seasonal allergic rhinitis due to other allergic trigger J30.89 Active 590110958 Problem Schizoaffective disorder, depressive type F25.1 Active 06555121 Problem History of lupus Z87.39 Active 315678310 Problem Gastroesophageal reflux disease without esophagitis K21.9 Active 323476557 Problem Menopausal syndrome (hot flashes) N95.1 Active 178066630 Problem Other allergic rhinitis J30.89 Active 155184685 Problem Primary insomnia F51.01 Active 1299070 Problem DM neuro manif type II E11.49 Active 06285900 ALLERGIES No Information ENCOUNTERS Encounter Location Date Diagnosis [place] [address], [place] [address] 05 Dec, 2017 [place] [address] [place] [id number] [place] [address] 68188- 5413 Nov, [place] [address] [place] [id number] [place] [address] 99421- 2309 Nov, [place] [address] [place] [id number] [place] [address] 54787- 4591 Nov, Paranoid schizophrenia F20.0 [place] [address] [place] [id number] [place] [address] 43000- 6809 Nov, Gastroesophageal reflux disease, esophagitis presence not specified K21.9 [place] [id number] [place] [address] 90013- 3995 Oct, Paranoid schizophrenia F20.[id number] [address] Oct Chronic pain syndrome G89.4 and Schizoaffective disorder, depressive type F25.1 [place] [address], [place] [address] Oct, Chronic pain syndrome G89.4 and Schizoaffective disorder, depressive type F25.1 [place] [address] [place] [address] 41043- 7696 Oct, Type 2 diabetes mellitus without complication, without long- term current use of insulin E11.9 [place] [id number] [place] [address] 83864- 0500 12 Oct, 2017 Essential hypertension I10 and DM neuro manif type II E11.49 [place] [address] [place] [id number] [place] [address] 40661- 1720 Oct, [facility] [address], [place] [address] Oct, Schizoaffective disorder, depressive type F25.1 and BMI 45.0 -49.9, adult Z68.42 [facility] [address], [place] [address] Oct, [facility] [address] [place] [id number] [place] [address] 61034- 2217 Oct, Paranoid schizophrenia F20.0 [facility] [address] [place] [address] 92047- 5165 Oct, Type 2 diabetes mellitus with diabetic neuropathic arthropathy, 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 ; Essential hypertension I10 ; Hypothyroidism (acquired) E03.9 ; Chronic obstructive pulmonary disease, unspecified COPD type J44.9 and Diabetic polyneuropathy associated with type 2 diabetes mellitus E11.42 [place] [address] [place] [id number] [place] [address] 97039- 8104 Sep, Paranoid schizophrenia F20.0 [place] [address] [place] [id number] [place] [address] 86384- 2865 Sep, Paranoid schizophrenia F20.0 and BMI 45.0-49.9, adult Z68.42 [facility] [address], [place] [address] 0[address] Sep, Schizoaffective disorder, depressive type F25.1 [facility] [address], [place] [address] 8147 Sep, [facility] [address] [place] [id number] [place] [address] 82379- 1945 Sep, Paranoid schizophrenia F20.0 [facility] [address], [place] [address] 3[address] Sep, [facility] [address] [place] [id number] [place] [address] 58112- 4905 Sep, Hypothyroidism (acquired) E03.9 [facility] [address] [place] [id number] [place] [address] 37342- 3045 Sep, [facility] [address] [place] [id number] [place] [address] 76144- 1161 August, Schizoaffective disorder, depressive type F25.1 [facility] [address] 56523- 4612 August, [facility] [address] [place] [id number] [place] [address] 85640- 1729 August, [facility] [address] [place] [id number] [place] [address] 87993- 4005 August, [facility] [address] 62023- 0792 August, Paranoid schizophrenia F20.0 [facility] [address] 09578- 5152 August, History of lupus Z87.39 and Chronic pain syndrome G89.4 [facility] [address] [place] [id number] [place] [address] 72252- 6949 August, [facility] [address] [place] [id number] [place] [address] 39035 -6023 August, Seasonal allergic rhinitis, unspecified trigger J30.2 and BMI 45.0-49.9, adult Z68.42 [facility] [address] [place] [id number] [place] [address] 03696- 1050 Jul, Schizoaffective disorder, depressive type F25.1 [facility] [address] [place] [id number] [place] [address] 88638- 3447 Jul, [facility] [address] 01643- 9007 Jul, Hypothyroidism (acquired) E03.9 [facility] [address] [place] [id number] [place] [address] 41134- 1238 Jul, Chronic obstructive pulmonary disease, unspecified COPD type J44.9 and Type 2 diabetes mellitus without complication, without long-term current use of insulin E11.9 [place] [address] 68286- 8987 Jul, Paranoid schizophrenia F20.0 [facility] [address] 75092- 9997 Jun, Hypothyroidism (acquired) E03.9 and Seasonal allergic rhinitis due to pollen J30.1 [facility] [address] 50566 -9945 Jun, Shortness of breath at rest R06.02 ; COPD exacerbation J44.1 and BMI 45.0-49.9, adult Z68.42 [place] [address] 96910- 9850 Jun, [place] [address] 49731- 7677 Jun, Paranoid schizophrenia F20.0 ; Depression with anxiety F41.8 and BMI 45.0-49.9, adult Z68.42 [place] [address] 17138- 5561 Jun, Schizoaffective disorder, depressive type F25.1 [facility] [address] [id number] Jun, Dental caries K02.9 [place] [address] 40628- 0164 Jun, Paranoid schizophrenia F20.0 [place] [address] 64203- 6164 May, Migraine without aura and without status migrainosus, not intractable G43.009 ; DM neuro manif type II E11.49 and Type 2 diabetes mellitus without complication, without long-term current use of insulin E11.9 [place] [address] 99536- 1872 May, Migraine without aura and without status migrainosus, not intractable G43.009 [facility] [address] [place] [id number] [place] [address] 46179- 7295 May, Depression with anxiety F41.8 [facility] [id number] [place] [address] [id number] May, [facility] [address] 12829- 7794 May, [place] [address] 55893- 9867 May, [place] [address] [place] [id number] [place] [address] 44720- 5891 May, Hypothyroidism (acquired) E03.9 [place] [address] 89793- 0517 May, Paranoid schizophrenia F20.0 [facility] [address] [place] [id number] [place] [address] 18773- 9215 May, Type 2 diabetes mellitus without complication, [...] N32.81 and Controlled substance agreement signed Z79.899 [place] [address] [place] [id number] [place] [address] 41824- 6107 May, Controlled substance agreement signed Z79.899 [place] [address] [place] [id number] [place] [address] 45321- 7636 Apr, [facility] [address] [id number] Apr, Dental examination Z01.20 [facility] [address] [place] [id number] [place] [address] 13233- 8162 Apr, Paranoid schizophrenia F20.0 [facility] [address] [place] [id number] [place] [address] 75402- 3153 Apr, Hypertension, unspecified type I10 [facility] [address] [place] [id number] [place] [address] 15175- 1134 Apr, Paranoid schizophrenia F20.0 [facility] [address] [place] [id number] [place] [address] 01626- 8939 Apr, [facility] [address] [place] [id number] [place] [address] 41260- 6280 Apr, Tobacco abuse Z72.0 [facility] [address] [place] [id number] [place] [address] 29099- 5115 Apr, [facility] [id number] [place] [address] 07630- 6180 Mar, [facility] [address] [place] [id number] [place] [address] 36104- 8458 Mar, Paranoid schizophrenia F20.0 and BMI 45.0-49.9, adult Z68.42 [facility] [id number] [place] [address] 28251- 5451 Mar, Schizoaffective disorder, depressive type F25.1 [facility] [id number] [place] [address] 87312- 5173 Mar, [facility] [address] [place] [id number] [place] [address] 15478- 7160 Mar, Schizoaffective disorder, depressive type F25.1 [facility] [address] [place] [id number] [place] [address] 96617- 5345 Mar, Hypothyroidism, unspecified type E03.9 [facility] [address] [place] [id number] [place] [address] 28053 -4596 Feb, Gastroenteritis K52.9 and BMI 45.0-49.9, adult Z68.42 [facility] [address] 01077- 1576 Feb, [facility] [address] 43975- 2670 Feb, [place] [address] 78559- 4834 Feb, [place] [address] 44305- 1443 Feb, [place] [address] 63052- 8181 Feb, Paranoid schizophrenia F20.0 [place] [address] 20903- 4986 Feb, Gastroesophageal reflux disease without esophagitis K21.9 ; Other seasonal allergic rhinitis J30.2 ; Other allergic rhinitis J30.89 ; Tobacco abuse Z72.0 and BMI 40.0-44.9, adult Z68.41 [place] [address] [place] [id number] [place] [address] 25507- 7855 Feb, Onychomycosis B35.1 ; Callus of foot L84 and DM neuro manif type II E11.49 [place] [address] [place] [id number] [place] [address] 30083- 9129 Jan, Chronic allergic rhinitis J30.9 [place] [address] 85558- 1789 Jan, [place] [address] [place] [id number] [place] [address] 62871- 1360 Jan, Schizoaffective disorder, depressive type F25.1 [place] [address] [place] [address]- 6078 10 Jan, 2017 [facility] [address] [place] [id number] [place] [address] 86719 -0432 07 Jan, 2017 Sore throat J02.9 and Seasonal allergic rhinitis due to other allergic trigger J30.89 [facility] [address] [place] [id number] [place] [address] 91279- 5769 04 Jan, 2017 [facility] [address] 15852- 5909 Jan, [facility] [address] 58798 -4893 Jan, Chronic allergic rhinitis J30.9 [place] [address] 04339- 1865 27 Dec, 2016 Paranoid schizophrenia F20.0 ; Primary insomnia F51.01 and Schizoaffective disorder, depressive type F25.1 [place] [address] 40651- 5848 Dec, Chronic pain syndrome G89.4 ; Cervicalgia of occipito- atlanto-axial region M54.2 ; Menopausal syndrome (hot flashes) N95.1 and Encounter for immunization Z23 [facility] [address] [place] [id number] [place] [address] 91571- 0399 14 Dec, 2016 [place] [address] [place] [id number] [place] [address] 37435- 7332 13 Dec, 2016 [place] [address] [place] [id number] [place] [address] 28210- 9351 08 Dec, 2016 Paranoid schizophrenia F20.0 [place] [address] 77922- 4069 Dec, Schizoaffective disorder, depressive type F25.1 [place] [address] [place] [id number] [place] [address] 18556- 6273 Nov, Hypothyroidism, unspecified type E03.9 [facility] [address], [place] [address]762 Nov, Acute seasonal allergic rhinitis due to other allergen J30.89 [facility] [address] [place] [id number] [place] [address] 25327- 3770 Nov, [facility] [address] [place] [id number] [place] [address] 91301- 7900 Nov, Hypothyroidism, unspecified type E03.9 and Other elevated white blood cell (WBC) count D72.828 [place] [address] [place] [id number] [place] [address] 10811- 2628 Nov, Schizoaffective disorder, depressive type F25.1 [place] [address] [place] [id number] [place] [address] 88665- 7704 Nov, Paranoid schizophrenia F20.0 [place] [address] [place] [id number] [place] [address] 32781- 8810 Nov, Type 2 diabetes mellitus without complication, without long- term current use of insulin E11.9 ; Morbid obesity due to excess calories E66.01 and Chronic pain syndrome G89.4 [place] [address] [place] [id number] [place] [address] 70695- 6934 Oct, Paranoid schizophrenia F20.0 [place] [address] [place] [id number] [place] [address] 37823- 2107 Oct, [place] [address] [place] [id number] [place] [address] 22032- 2380 Oct, Schizoaffective disorder, depressive type F25.1 [place] [address] [place] [id number] [place] [address] 08193- 5441 Oct, Hypothyroidism, unspecified type E03.9 and Other elevated white blood cell (WBC) count D72.828 [place] [address] [place] [id number] [place] [address] 16576- 4546 Oct, Morbid obesity due to excess calories E66.01 ; Chronic obstructive pulmonary disease, unspecified COPD type J44.9 ; History of lupus Z87.39 ; Hypothyroidism, unspecified type E03.9 ; Gastroesophageal reflux disease without esophagitis K21.9 ; Primary insomnia F51.01 and Chronic pain syndrome G89.4 [facility] [address] [place] [address] 19730- 6037 Sep, [facility] [address] [place] [id number] [place] [address] 87522- 2020 Sep, [facility] [address] [place] [id number] [place] [address] 99321- 0419 Sep, [facility] [address] [place] [id number] [place] [address] 08298- 3327 Sep, Paranoid schizophrenia F20.0 [facility] [address] [place] [id number] [place] [address] 55188- 1791 Sep, [facility] [address] [place] [id number] [place] [address] 56049- 2414 Sep, Paranoid schizophrenia F20.0 [facility] [address] [place] [id number] [place] [address] 93490- 9762 Sep, [facility] [address] [place] [id number] [place] [address] 84682- 5931 August, Paranoid schizophrenia F20.0 [facility] [address] [place] [id number] [place] [address] 45495- 3240 Jul, [facility] [address] [place] [id number] [place] [address] 87834- 8919 Jul, Type 2 diabetes mellitus without complication, without long- term current use of insulin E11.9 ; Morbid obesity due to excess calories E66.01 ; Depression with anxiety F41.8 ; Hypothyroidism, unspecified type E03.9 ; Seasonal allergic rhinitis due to other allergic trigger J30.89 ; Pain, dental K08.89 and Gastroesophageal reflux disease without esophagitis K21.9 [facility] [address] [place] [address] [id number] Jul, Dental examination Z01.20 [facility] [address] [place] [address] 52453- 5072 07 Jul, 2016 Paranoid schizophrenia F20.0 [place] [address] [place] [id number] [place] [address] 81669- 3768 13 Jun, 2016 Paranoid schizophrenia F20.0 and Depression with anxiety F41.8 [place] [address] [place] [id number] [place] [address] 92765- 7260 10 Jun, 2016 Paranoid schizophrenia F20.0 and Depression with anxiety F41.8 [place] [address] [place] [id number] [place] [address] 36219- 2811 09 Jun, 2016 [place] [address] [place] [id number] [place] [address] 89896- 2180 Jun, [facility] [place] [address] [place] [id number] [place] [address] 70188 -9505 Jun, Seasonal allergic rhinitis due to other allergic trigger J30.89 [facility] [place] [address] [place] [id number] [place] [address] 28026 -1258 May, Sore throat J02.9 ; Other viral agents as the cause of diseases classified elsewhere B97.89 and Acute upper respiratory infection, unspecified J06.9 [place] [address] [place] [address] 20338- 1589 May, Paranoid schizophrenia F20.0 and Depression with anxiety F41.8 [place] [address] [place] [id number] [place] [address] 35834- 5735 Apr, Other seasonal allergic rhinitis J30.2 [place] [address] [place] [id number] [place] [address] 87620- 4515 Apr, Paranoid schizophrenia F20.0 and Depression with anxiety F41.8 [facility] [address] [place] [id number] [place] [address] 63412 -0051 Apr, Bronchitis J40 and Sore throat J02.9 [place] [address], [place] [address]- 1366 Apr, Type 2 diabetes mellitus without complication, without long- term current use of insulin E11.9 [facility] [address] [place] [address] 18968 -9304 Apr, Bronchitis J40 [facility] [address] [place] [id number] [place] [address] 84450- 8993 Apr, [facility] [address] [place] [id number] [place] [address] 46680- 8112 Apr, [facility] [address] [place] [id number] [place] [address] 55452- 0282 Mar, Type 2 diabetes mellitus without complication, [...] R60.9 and Other seasonal allergic rhinitis J30.2 [place] [address] [place] [id number] [place] [address] 80982- 2523 Mar, Paranoid schizophrenia F20.0 and Depression with anxiety F41.8 [facility] [address] [place] [address] 25838- 3720 Feb, [facility] [address] [place] [id number] [place] [address] 21565- 5536 Feb, [place] [address] [place] [id number] [place] [address] 31363- 1187 Feb, [place] [address] [place] [id number] [place] [address] 76843- 7993 Feb, [facility] [address] [place] [id number] [place] [address] 19472- 3216 Feb, Type 2 diabetes mellitus without complication, without long- term current use of insulin E11.9 ; ARIAS on CPAP G47.33 and Preoperative evaluation to rule out surgical contraindication Z01.818 [facility] [address] [place] [id number] [place] [address] 15446- 5687 Feb, Paranoid schizophrenia F20.0 and Depression with anxiety F41.8 [facility] [address] [place] [id number] [place] [address] 18725- 4574 Jan, [facility] [address] [place] [id number] [place] [address] [id number]- 0340 Jan, Paranoid schizophrenia F20.0 and Depression with anxiety F41.8 [facility] [address] [phone]- [phone] Jan, [facility] [id number] [place] [address] 46227- 8301 Jan, Muscle strain T14.8 [facility] [id number] [place] [address] 05836- 2690 Jan, Paranoid schizophrenia F20.0 [facility] [address] 54619- 3917 Jan, [facility] [id number] [place] [address] 47311- 3437 Jan, Paranoid schizophrenia F20.0 and Depression with anxiety F41.8 [facility] [id number] [place] [address] [phone]- [phone] Jan, [facility] [id number] [place] [address] 29594- 4208 Jan, [facility] [address] 43651- 3185 Dec, [facility] [id number] [place] [address] 37627- 4095 Dec, Paranoid schizophrenia F20.0 [facility] [id number] [address] 16 Dec, 2015 Paranoid schizophrenia F20.0 and Depression with anxiety F41.8 [facility] [id number] [place] [address] [id number]- 2477 Nov, [facility] [id number] [place] [address] 21217- 3915 Nov, Paranoid schizophrenia F20.0 [facility] [id number] [place] [address] 64394- 2627 Nov, Paranoid schizophrenia F20.0 and Depression with anxiety F41.8 [place] [id number] [place] [address] 85685- 3218 Nov, Type 2 diabetes mellitus without complication, without long- term current use of insulin E11.9 ; Paranoid schizophrenia F20.0 ; Chronic obstructive pulmonary disease, unspecified COPD type J44.9 ; Morbid obesity due to excess calories E66.01 and Parkinsonian tremor G20 [facility] [id number] [address] Nov, [facility] [id number] [place] [address] 53815- 4171 Oct, Paranoid schizophrenia F20.0 [facility] [id number] [place] [address] 83935- 2785 Oct, Paranoid schizophrenia F20.0 [facility] [id number] [place] [address] 12875- 5656 Oct, Paranoid schizophrenia F20.0 and Depression with anxiety F41.8 [facility] [id number] [place] [address] 39203- 1510 Oct, [facility] [id number] [place] [address] 99850- 6525 Oct, Paranoid schizophrenia F20.0 and Depression with anxiety F41.8 [facility] [id number] [place] [address] 24431- 9132 Oct, Nasal sore J34.89 [facility] [id number] [place] [address] 59575- 7606 Oct, Type 2 diabetes mellitus without complication, without long- term current use of insulin E11.9 ; Depression with anxiety F41.8 ; Hypothyroidism, unspecified type E03.9 and History of lupus Z87.39 [place] [id number] [place] [address] 98490- 9386 Oct, [facility] [id number] [place] [address] 40665- 9607 Oct, Type 2 diabetes mellitus without complication, [...] edema R60.9 and History of lupus Z87.39 [place] [id number] [place] [address] 03626- 5176 Feb, [place] [id number] [place] [address] 73051- 4357 Jan, [place] [id number] [place] [address] 86970- 7846 Jan, [place] [id number] [place] [address] 49743- 9091 Jan, [place] [address] 72271- 5472 Dec, [place] [id number] [place] [address] 42135- 3333 Nov, [place] [address] 04048- 1116 Nov, [facility] [address] [facility] [id number] [place] [address]- 1557 Oct, [facility] [address] [facility] [id number] [place] [address]- 2468 Oct, [facility] [address] [facility] [id number] [place] [address]- 5261 Oct, [facility] [address] [facility] [id number] [place] [address] 58264- 8929 Sep, Allergic rhinitis 477.9 [facility] [id number] [place] [address], [place] [address]- 5615 Sep, Rhinitis, allergic 477.9 [facility] [id number] [place] [address]- 4849 Sep, Rhinitis, allergic 477.9 [facility] [id number] [place] [address]- 7042 Sep, [facility] [id number] [place] [address]- 4559 August, [facility] [id number] [place] [address]- 2724 August, [facility] [id number] [place] [address]- 6934 August, [facility] [id number], [place] [address]- 9709 28 Jul, 2014 [facility] [address] [facility] [id number] [place] [address]- 1961 14 Jul, 2014 [facility] [id number] [place] [address]- 5373 13 Jul, 2014 [facility] [address] [facility] [id number] [place] [address]- 5466 16 Jun, 2014 [facility] [address], [place] [address]- 5407 16 Jun, 2014 [facility] [place] [facility] [address] [id number] [place] [address]- 5806 Jun, [facility] [place] [facility] [address] [id number] [place] 3085 Jun, [facility] [place] [facility] [address] [facility] [id number] [place] [address]- 4305 Jun, [facility] [place] [facility] [address] [id number] [place] [address]- 6165 Jun, [facility] [place] [facility] [address] [id number] [place] [address]- 3851 Jun, [facility] [place] [facility] [address] [facility] [id number] [place] [address]- 5648 Jun, [facility] [place] [facility] [address] [facility] [id number] [place] [address]- 1545 May, [facility] [place] [facility] [address] [id number] [place] [address]- 0563 May, [facility] [place] [facility] [address] [id number] [place] [address]- 4487 May, [facility] [place] [facility] [address] [facility] [id number] [place] [address]- 1716 May, [facility] [place] [facility] [address] [facility] [id number] [place] [address]- 8730 Apr, [facility] [place] [facility] [address] [id number] [place] [address]- 2369 Mar, [facility] [place] [facility] [address] [id number] [place] [address]- 1365 Mar, [facility] [place] [facility] [address] [facility] [id number] [place] [address]- 4218 Mar, [facility] [place] [facility] [address] [facility] [id number] [place] [address]- 2384 Mar, [facility] [place] [facility] [address] [id number] [place] [address]- 5116 06 Mar, 2014 [facility] [place] [facility] [address] [id number] [place] 9133 Mar, [facility] [place] [facility] [address] [id number] [place] [address]- 3158 Mar, [facility] [place] [facility] [address] [id number] [place] [address]- 5689 Mar, [facility] [place] [facility] [address] [id number] [place] [address]- 4659 Mar, [facility] [place] [facility] [address] [id number] [place] [address]- 0767 Feb, [facility] [place] [facility] [address] [id number] [place] [address]- 2343 Feb, [facility] [place] [facility] [address] [id number] [place] [address]- 7879 Feb, [facility] [place] [facility] [address] [id number] [place] [address]- 8636 Feb, [facility] [place] [facility] [address] [id number] [place] [address]- 7259 Feb, [facility] [place] [facility] [address] [id number] [place] [address]- 0338 Feb, [facility] [place] [facility] [address] [id number] [place] [address]- 9079 Feb, [facility] [place] [facility] [address] [id number] [place] [address]- 4617 Feb, [facility] [place] [facility] [address] [id number] [place] [address]- 5047 Jan, [facility] [place] [facility] [address] [id number] [place] [address]- 6709 Jan, [facility] [place] [facility] [address] [id number] [place] [address]- 0042 16 Jan, 2014 [facility] [place] [facility] [address] [id number] [place] [address]- 6789 16 Jan, 2014 [facility] [place] [facility] [address] [id number] [place] [address]- 8584 15 Jan, 2014 [facility] [place] [facility] [address] [id number] [place] [address]- 7554 15 Jan, 2014 [facility] [place] [facility] [address] [id number] [place] [address]- 4519 14 Jan, 2014 [facility] [place] [facility] [address] [id number] [place] [address]- 5165 14 Jan, 2014 [facility] [place] [facility] [address] [id number] [place] [address]- 9494 14 Jan, 2014 [facility] [place] [facility] [address] [id number] [place] [address]- 4033 14 Jan, 2014 [facility] [place] [facility] [address] [id number] [place] [address]- 1653 18 Dec, 2013 [facility] [place] [facility] [address] [id number] [place] [address]- 2021 18 Dec, 2013 [facility] [place] [facility] [address] [id number] [place] [address]- 0277 10 Dec, 2013 [facility] [place] [facility] [address] [id number] [place] [address]- 2899 10 Dec, 2013 [facility] [place] [facility] [address] [id number], [place] [address]- 9892 Nov, [facility] [place] [facility] [address] [id number] [place] [address]- 0561 Nov, [facility] [place] [facility] [address] [id number] [place] [address]- 9778 Nov, [facility] [place] [facility] [address] [id number] [place] [address]- 5256 Nov, [facility] [place] [facility] [address] [id number] [place] [address]- 4283 Nov, [facility] [place] [facility] [address] [id number] [place] [address]- 7620 Oct, [facility] [place] [facility] [address] [id number] [place] [address]- 8150 Oct, [facility] [place] [facility] [address] [id number] [place] [address]- 3685 Oct, [facility] [place] [facility] [address] [id number] [place] [address]- 7326 Oct, [facility] [place] [facility] [address] [id number] [place] [address]- 3690 Sep, [facility] [place] [facility] [address] [id number] [place] [address]- 5697 Sep, [facility] [place] [facility] [address] [id number] [place] [address]- 9608 Sep, [facility] [place] [facility] [address] [id number] [place] [address]- 1065 Sep, [facility] [place] [facility] [address] [id number] [place] [address]- 8744 Sep, [facility] [place] [facility] [address] [id number] [place] [address]- 7067 Sep, [facility] [place] [facility] [address] [id number] [place] [address]- 4764 Sep, [facility] [place] [facility] [address] [id number] [place] [address]- 5687 Sep, [facility] [place] [facility] [address] [id number] [place] [address]- 2518 August, [facility] [place] [facility] [address] [id number] [place] [address]- 7249 August, [facility] [place] [facility] [address] [id number] [place] [address]- 0969 August, [facility] [place] [facility] [address] [id number] [place] [address]- 4368 August, [facility] [place] [facility] [address] [id number] [place] [address]- 1175 August, [facility] [place] [facility] [address] [id number] [place] [address]- 0836 August, [facility] [place] [facility] [address] [id number] [place] [address]- 9593 August, [facility] [place] [facility] [address] [id number] [place] [address]- 6048 Jul, [facility] [place] [facility] [address] [id number] [place] [address]- 3193 Jul, [facility] [place] [facility] [address] [id number] [place] [address]- 3371 Jul, [facility] [place] [facility] [address] [id number] [place] [address]- 5119 Jul, [facility] [place] [facility] [address] [id number] [place] [address]- 6688 Jul, [facility] [place] [facility] [address] [id number] [place] [address]- 0478 Jul, [facility] [place] [facility] [address] [id number] [place] [address]- 5120 Jul, [facility] [place] [facility] [address] [id number] [place] [address]- 2837 Jul, [facility] [place] [facility] [address] [id number] [place] [address]- 4875 Jul, [facility] [place] [facility] [address] [id number] [place] [address]- 4939 Jul, [facility] [place] [facility] [address] [id number] [place] [address]- 5533 Jul, [facility] [place] [facility] [address] [id number], [place] [address]- 9735 Jul, [facility] [place] [facility] [address] [id number] [place] [address]- 8849 Jun, [facility] [place] [facility] [address] [id number] [place] 7792 Jun, [facility] [place] [facility] [address] [facility] [id number] [place] [address]- 9119 Jun, [facility] [place] [facility] [address] [id number] [place] [address]- 4340 Jun, [facility] [place] [facility] [address] [id number] [place] [address]- 6865 Jun, [facility] [place] [facility] [address] [facility] [id number] [place] [address]- 3332 May, [facility] [place] [facility] [address] [facility] [id number] [place] [address]- 9628 May, [facility] [place] [facility] [address] [facility] [id number] [place] [address]- 9873 May, [facility] [place] [facility] [address] [facility] [id number] [place] [address]- 2304 May, [facility] [place] [facility] [address] [facility] [id number] [place] [address]- 7994 May, [facility] [place] [facility] [address] [facility] [id number] [place] [address]- 8705 May, [facility] [place] [facility] [address] [facility] [id number], [place] [address]- 5969 May, [facility] [place] [facility] [address] [facility] [id number] [place] [address]- 5683 May, [facility] [place] [facility] [address] [facility] [id number] 7777 Mar, [facility] [place] [facility] [address] [facility] [id number], [place] [address]- 0954 Mar, [facility] [place] [facility] [address] [id number] [place] [address]- 6754 Mar, [facility] [place] [facility] [address] [id number] [place] [address]- 5297 Mar, [facility] [place] [facility] [address] [id number] [place] [address]- 6169 Mar, [facility] [place] [facility] [address] [id number] [place] [address]- 4099 Mar, [facility] [place] [facility] [address] [id number] [place] [address]- 7153 Feb, [facility] [place] [facility] [address] [id number] [place] [address]- 7501 Feb, [facility] [place] [facility] [address] [id number] [place] [address]- 1775 Jan, [facility] [place] [facility] [address] [id number] [place] [address]- 9857 Jan, [facility] [place] [facility] [address] [id number] [place] [address]- 1862 Jan, [facility] [place] [facility] [address] [id number] [place] [address]- 6788 Jan, [facility] [place] [facility] [address] [id number] [place] [address]- 8398 Jan, [facility] [place] [facility] [address] [id number] [place] [address]- 9506 Jan, [facility] [place] [facility] [address] [id number] [place] [address]- 6388 Jan, [facility] [place] [facility] [address] [id number] [place] [address]- 1000 Jan, [facility] [place] [facility] [address] [id number] [place] [address]- 9279 08 Jan, 2013 [facility] [place] [facility] [address] [id number] [place] [address]- 8366 Jan, [facility] [address] [id number] [place] [address]- 8595 Dec, [facility] [place] [facility] [address] [id number] [place] [address]- 8566 Nov, [facility] [place] [facility] [address] [id number] [place] [address] 2546 Nov, [facility] [place] [facility] [address] [id number] [place] [address]- 0285 Nov, [facility] [place] [facility] [address] [id number] [place] [address]- 7913 Oct, [facility] [place] [facility] [address] [id number] [place] [address]- 4240 Oct, [facility] [place] [facility] [address] [id number] [place] [address]- 8567 August, [facility] [place] [facility] [address] [id number] [place] [address]- 8456 Apr, [facility] [place] [facility] [address] [id number] [place] [address]- 6087 Apr, [facility] [place] [facility] [address] [id number] [place] [address]- 1701 Feb, [facility] [place] [facility] [address] [id number] [place] [address]- 5796 Feb, [facility] [place] [facility] [address] [id number] [place] [address]- 5220 Dec, [facility] [place] [facility] [address] [id number] [place] [address]- 8096 Dec, [facility] [place] [facility] [address] [id number] [place] [address]- 0647 Oct, [facility] [place] [facility] [address] [id number] [place] [address]- 5777 Oct, [facility] [place] [facility] [address] [id number] [place] [address] [address]578 Oct, [facility] [address] [facility] [id number] [place] [address]- 9331 Jul, IMMUNIZATIONS No Known Immunizations SOCIAL HISTORY [...] for psychosis/mental illness , last one in [facility] 4 years ago
--- OUTSIDE RECORDS SUMMARY | 2018-09-02 13:47 | XMS REPORT ---
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 Name Role Phone UMESH PINEDA Unavailable PROBLEMS Type Condition ICD9-CM Code [id number] Code Onset Dates Condition Status SNOMED Code Problem OAB (overactive bladder) N32.81 Active 574208207 Problem Depression with anxiety F41.8 Active 312316452 Problem Other seasonal allergic rhinitis J30.2 Active 123916497 Problem Chronic obstructive pulmonary disease, unspecified COPD type J44.9 Active 19158508 Problem Tobacco abuse Z72.0 Active 690167091 Problem Morbid obesity due to excess calories E66.01 Active 373953873 Problem Dyslipidemia E78.5 Active 282387343 Problem Hypothyroidism (acquired) E03.9 Active 839764060 Problem Essential hypertension I10 Active 94337362 Problem Diabetic polyneuropathy associated with type 2 diabetes mellitus E11.42 Active 998976393 Problem Type 2 diabetes mellitus with diabetic neuropathic arthropathy, 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 Active 739250288 Problem Type 2 diabetes mellitus without complication, without long-term current use of insulin E11.9 Active 308876913 Problem Paranoid schizophrenia F20.0 Active 32165930 Problem Chronic pain syndrome G89.4 Active 081291750 Problem Migraine without aura and without status migrainosus, not intractable G43.009 Active 469316768 Problem Gastroesophageal reflux disease, esophagitis presence not specified K21.9 Active 355463598 Problem Seasonal allergic rhinitis due to pollen J30.1 Active 36653912 Problem COPD exacerbation J44.1 Active 472307936 Problem Seasonal allergic rhinitis due to other allergic trigger J30.89 Active 824378366 Problem Schizoaffective disorder, depressive type F25.1 Active 39273140 Problem History of lupus Z87.39 Active 022965021 Problem Gastroesophageal reflux disease without esophagitis K21.9 Active 535156011 Problem Menopausal syndrome (hot flashes) N95.1 Active 908231364 Problem Other allergic rhinitis J30.89 Active 350062120 Problem Primary insomnia F51.01 Active 3771208 Problem DM neuro manif type II E11.49 Active 90574033 ALLERGIES No Information ENCOUNTERS Encounter Location Date Diagnosis [facility] [address], [place] [address] 05 Dec, 2017 [facility] [id number] [place] [address] 34819- 2222 Nov, [facility] [id number] [place] [address] 33073- 3790 Nov, [place] [id number] [place] [address] 97020- 5865 Nov, Paranoid schizophrenia F20.0 [place] [address] [place] [address] 41134- 4962 Nov, [facility] [id number] [place] [address] 71035- 2208 Oct, Paranoid schizophrenia F20.0 [id number], [place] [address] Oct Chronic pain syndrome G89.4 and Schizoaffective disorder, depressive type F25.1 [place] [address], [place] [address] Oct, Chronic pain syndrome G89.4 and Schizoaffective disorder, depressive type F25.1 [facility] [address], [place] [address] 16 Oct, 2017 Type 2 diabetes mellitus without complication, without long- term current use of insulin E11.9 [facility] [id number] [place] [address] 90538- 0485 12 Oct, 2017 Essential hypertension I10 and DM neuro manif type II E11.49 [facility] [address], [place] [address] 11 Oct, 2017 [facility] [address], [place] [address] 6[address] Oct, Schizoaffective disorder, depressive type F25.1 and BMI 45.0 -49.9, adult Z68.42 [place] [id number] [address] 9[address] Oct, [facility] [id number] [place] [address] 72916- 5546 Oct, Paranoid schizophrenia F20.0 [facility] [id number] [address] Oct, Type 2 diabetes mellitus with diabetic neuropathic arthropathy, 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 ; Essential hypertension I10 ; Hypothyroidism (acquired) E03.9 ; Chronic obstructive pulmonary disease, unspecified COPD type J44.9 and Diabetic polyneuropathy associated with type 2 diabetes mellitus E11.42 [facility] [id number] [place] [address] 41780- 0301 Sep, Paranoid schizophrenia F20.0 [facility] [id number] [address] 44[address] Sep, Paranoid schizophrenia F20.0 and BMI 45.0-49.9, adult Z68.42 [place] [address], [place] [address] 84[address] Sep, Schizoaffective disorder, depressive type F25.1 [place] [id number] [address] 1482 Sep, [facility] [address], [place] [address] 7[address] Sep, Paranoid schizophrenia F20.0 [place] [address], [place] [address] 49[address] Sep, [facility] [address], [place] [address] 88[address] Sep, Hypothyroidism (acquired) E03.9 [place] [address] [place] [address] 90471- 8517 Sep, [facility] [id number] [place] [address] 60564- 1907 August, Schizoaffective disorder, depressive type F25.1 [facility] [id number] [place] [address] 61714- 6043 August, [facility] [id number] [place] [address] 89428- 4935 August, [facility] [id number] [place] [address] 03753- 5303 August, [facility] [id number] [place] [address] 24999- 8140 August, Paranoid schizophrenia F20.0 [facility] [id number] [place] [address] 56271- 7209 August, History of lupus Z87.39 and Chronic pain syndrome G89.4 [facility] [id number] [place] [address] 05966- 9974 August, [facility] [id number] [place] [address] 13099 -6195 August, Seasonal allergic rhinitis, unspecified trigger J30.2 and BMI 45.0-49.9, adult Z68.42 [facility] [id number] [place] [address] 56396- 5101 Jul, Schizoaffective disorder, depressive type F25.1 [facility] [id number] [place] [address] 06496- 1229 Jul, [facility] [address] 54133- 1271 Jul, Hypothyroidism (acquired) E03.9 [facility] [id number] [place] [address] 52545- 7610 Jul, Chronic obstructive pulmonary disease, unspecified COPD type J44.9 and Type 2 diabetes mellitus without complication, without long-term current use of insulin E11.9 [facility] [address] 09527- 9847 Jul, Paranoid schizophrenia F20.0 [facility] [address] 24815- 6802 Jun, Hypothyroidism (acquired) E03.9 and Seasonal allergic rhinitis due to pollen J30.1 [facility] [address] [address] Jun, Shortness of breath at rest R06.02 ; COPD exacerbation J44.1 and BMI 45.0-49.9, adult Z68.42 [place] [address] 21768- 1035 Jun, [place] [address] 75051- 3674 Jun, Paranoid schizophrenia F20.0 ; Depression with anxiety F41.8 and BMI 45.0-49.9, adult Z68.42 [place] [address] 27671- 1146 Jun, Schizoaffective disorder, depressive type F25.1 [facility] [address] [id number] Jun, Dental caries K02.9 [place] [address] 95639- 1363 Jun, Paranoid schizophrenia F20.0 [place] [address] 96405- 7302 May, Migraine without aura and without status migrainosus, not intractable G43.009 ; DM neuro manif type II E11.49 and Type 2 diabetes mellitus without complication, without long-term current use of insulin E11.9 [facility] [address] 63233- 9072 May, Migraine without aura and without status migrainosus, not intractable G43.009 [facility] [address] [place] [address] 43843- 1196 May, Depression with anxiety F41.8 [facility] [address] [place] [address] [phone] May, [facility] [address] 25554- 0193 May, [place] [address] 58001- 5140 May, [place] [address] 92868- 5339 May, Hypothyroidism (acquired) E03.9 [place] [id number] [place] [address] 88848- 2149 May, Paranoid schizophrenia F20.0 [facility] [address] [place] [address] 84924- 9680 May, Type 2 diabetes mellitus without complication, [...] N32.81 and Controlled substance agreement signed Z79.899 [place] [id number] [place] [address] 53194- 7492 May, Controlled substance agreement signed Z79.899 [place] [id number] [place] [address] 71899- 1601 Apr, [facility] [address] [address] Apr, Dental examination Z01.20 [facility] [id number] [place] [address] 09587- 3911 Apr, Paranoid schizophrenia F20.0 [facility] [address] [place] [address] 55568- 1309 Apr, Hypertension, unspecified type I10 [facility] [id number] [place] [address] 63789- 4117 Apr, Paranoid schizophrenia F20.0 [facility] [id number] [place] [address] 87229- 6023 Apr, [facility] [id number] [place] [address] 02871- 2144 Apr, Tobacco abuse Z72.0 [facility] [id number] [place] [address] 94561- 1659 Apr, [facility] [address] [place] [address] 30632- 1447 Mar, [facility] [id number] [place] [address] 89561- 4315 Mar, Paranoid schizophrenia F20.0 and BMI 45.0-49.9, adult Z68.42 [facility] [address] [place] [address] 92104- 5832 Mar, Schizoaffective disorder, depressive type F25.1 [facility] [address], [place] [address]- 5443 Mar, [facility] [id number] [place] [address] 75298- 7248 Mar, Hypothyroidism, unspecified type E03.9 [facility] [address], [place] [address] 9661 Mar, Schizoaffective disorder, depressive type F25.1 [facility] [address] [place] [address] 49955 -7900 Feb, Gastroenteritis K52.9 and BMI 45.0-49.9, adult Z68.42 [facility] [id number] [place] [address] 73919- 6852 Feb, [facility] [address] 53629- 1979 Feb, [place] [id number] [place] [address] 38609- 8900 Feb, [place] [address] 72904- 9465 Feb, [place] [id number] [place] [address] 18149- 5263 Feb, Paranoid schizophrenia F20.0 [address] [id number] [place] [address] 84775- 1820 Feb, Gastroesophageal reflux disease without esophagitis K21.9 ; Other seasonal allergic rhinitis J30.2 ; Other allergic rhinitis J30.89 ; Tobacco abuse Z72.0 and BMI 40.0-44.9, adult Z68.41 [place] [id number] [place] [address] 91068- 4527 Feb, Onychomycosis B35.1 ; Callus of foot L84 and DM neuro manif type II E11.49 [place] [id number] [place] [address] 71432- 6958 Jan, Chronic allergic rhinitis J30.9 [place] [id number] [place] [address] 76946- 8551 Jan, [place] [address] 11926- 7325 Jan, Schizoaffective disorder, depressive type F25.1 [facility] [id number] [place] [address] 79881- 4262 Jan, [facility] [address] [place] [address] 58686 -3743 07 Jan, 2017 Sore throat J02.9 and Seasonal allergic rhinitis due to other allergic trigger J30.89 [facility] [id number] [place] [address] 73299- 1793 04 Jan, 2017 [facility] [id number] [place] [address] 96590- 7853 Jan, [facility] [id number] [place] [address] 10606 -8662 Jan, Chronic allergic rhinitis J30.9 [facility] [id number] [place] [address] 22689- 9199 27 Dec, 2016 Paranoid schizophrenia F20.0 ; Primary insomnia F51.01 and Schizoaffective disorder, depressive type F25.1 [place] [id number] [place] [address] 78965- 0544 Dec, Chronic pain syndrome G89.4 ; Cervicalgia of occipito- atlanto-axial region M54.2 ; Menopausal syndrome (hot flashes) N95.1 and Encounter for immunization Z23 [facility] [id number] [place] [address] 79088- 0090 14 Dec, 2016 [facility] [id number] [place] [address] 15883- 4530 13 Dec, 2016 [facility] [id number] [place] [address] 83356- 0510 08 Dec, 2016 Paranoid schizophrenia F20.0 [facility] [id number] [place] [address] 60016- 3657 Dec, Schizoaffective disorder, depressive type F25.1 [facility] [id number] [place] [address] 85102- 0143 Nov, Hypothyroidism, unspecified type E03.9 [facility] [address] [place] [address] Nov, Acute seasonal allergic rhinitis due to other allergen J30.89 [place] [id number] [place] [address] 21768- 8774 Nov, [place] [id number] [place] [address] 81175- 8313 Nov, Hypothyroidism, unspecified type E03.9 and Other elevated white blood cell (WBC) count D72.828 [place] [id number] [place] [address] 80494- 3608 Nov, Schizoaffective disorder, depressive type F25.1 [place] [id number] [place] [address] 35276- 8444 Nov, Paranoid schizophrenia F20.0 [place] [id number] [place] [address] 59448- 3445 Nov, Type 2 diabetes mellitus without complication, without long- term current use of insulin E11.9 ; Morbid obesity due to excess calories E66.01 and Chronic pain syndrome G89.4 [place] [id number] [place] [address] 30034- 5444 Oct, Paranoid schizophrenia F20.0 [place] [id number] [place] [address] 28029- 9206 Oct, [place] [id number] [place] [address] 23755- 3915 Oct, Schizoaffective disorder, depressive type F25.1 [place] [id number] [place] [address] 06921- 5513 Oct, Hypothyroidism, unspecified type E03.9 and Other elevated white blood cell (WBC) count D72.828 [place] [id number] [place] [address] 69423- 0985 Oct, Morbid obesity due to excess calories E66.01 ; Chronic obstructive pulmonary disease, unspecified COPD type J44.9 ; History of lupus Z87.39 ; Hypothyroidism, unspecified type E03.9 ; Gastroesophageal reflux disease without esophagitis K21.9 ; Primary insomnia F51.01 and Chronic pain syndrome G89.4 [facility] [address] [place] [address] 73782- 7370 30 Sep, 2016 [facility] [id number] [place] [address] 26779- 5066 Sep, [facility] [id number] [place] [address] 03474- 1341 Sep, [facility] [id number] [place] [address] 34899- 4393 Sep, Paranoid schizophrenia F20.0 [facility] [id number] [place] [address] 91452- 2114 Sep, [facility] [id number] [place] [address] 52334- 0096 Sep, Paranoid schizophrenia F20.0 [facility] [id number] [place] [address] 65310- 0933 Sep, [facility] [id number] [place] [address] 19853- 7713 August, Paranoid schizophrenia F20.0 [facility] [id number] [place] [address] 97348- 5096 Jul, [facility] [id number] [place] [address] 87184- 7601 Jul, Type 2 diabetes mellitus without complication, without long- term current use of insulin E11.9 ; Morbid obesity due to excess calories E66.01 ; Depression with anxiety F41.8 ; Hypothyroidism, unspecified type E03.9 ; Seasonal allergic rhinitis due to other allergic trigger J30.89 ; Pain, dental K08.89 and Gastroesophageal reflux disease without esophagitis K21.9 [facility] [address] [address] Jul, Dental examination Z01.20 [place] [address], [place] [address]- 2961 07 Jul, 2016 Paranoid schizophrenia F20.0 [place] [id number] [place] [address] 07884- 0422 13 Jun, 2016 Paranoid schizophrenia F20.0 and Depression with anxiety F41.8 [place] [address] [place] [address] 83447- 4689 10 Jun, 2016 Paranoid schizophrenia F20.0 and Depression with anxiety F41.8 [place] [id number] [place] [address] 59213- 1763 09 Jun, 2016 [place] [id number] [place] [address] 60360- 3539 08 Jun, 2016 [facility] [place] [id number] [place] [address] 78428 -6743 Jun, Seasonal allergic rhinitis due to other allergic trigger J30.89 [facility] [place] [id number] [place] [address] 12960 -6126 May, Sore throat J02.9 ; Other viral agents as the cause of diseases classified elsewhere B97.89 and Acute upper respiratory infection, unspecified J06.9 [place] [address] [place] [address] 35212- 7569 08 May, 2016 Paranoid schizophrenia F20.0 and Depression with anxiety F41.8 [place] [id number] [place] [address] 04978- 1748 Apr, Other seasonal allergic rhinitis J30.2 [place] [address] [place] [address] 05352- 5474 Apr, Paranoid schizophrenia F20.0 and Depression with anxiety F41.8 [facility] [address], [place] [address] Apr, Bronchitis J40 and Sore throat J02.9 [place] [id number] [place] [address] 22423- 1273 Apr, Type 2 diabetes mellitus without complication, without long- term current use of insulin E11.9 [facility] [id number] [place] [address] 31244 -5975 Apr, Bronchitis J40 [facility] [id number] [place] [address] 70736- 3033 Apr, [facility] [id number] [place] [address] 14330- 4518 Apr, [facility] [id number] [place] [address] 99458- 0867 Mar, Type 2 diabetes mellitus without complication, [...] R60.9 and Other seasonal allergic rhinitis J30.2 [place] [id number] [place] [address] 02460- 1793 Mar, Paranoid schizophrenia F20.0 and Depression with anxiety F41.8 [facility] [address] [place] [address] 80761- 3568 Feb, [facility] [id number] [place] [address] 39732- 8999 Feb, [facility] [id number] [place] [address] 26710- 3003 Feb, [place] [id number] [place] [address] 40000- 4563 Feb, [facility] [id number] [place] [address] 07939- 9038 Feb, Type 2 diabetes mellitus without complication, without long- term current use of insulin E11.9 ; ARIAS on CPAP G47.33 and Preoperative evaluation to rule out surgical contraindication Z01.818 [facility] [id number] [place] [address] 48823- 8809 09 Feb, 2016 Paranoid schizophrenia F20.0 and Depression with anxiety F41.8 [facility] [id number] [place] [address] 80726- 5787 18 Jan, 2016 [facility] [address] 43232- 3664 18 Jan, 2016 Paranoid schizophrenia F20.0 and Depression with anxiety F41.8 [facility] [address] 49140- 3958 17 Jan, 2016 [facility] [id number] [place] [address] 69935- 6903 14 Jan, 2016 Muscle strain T14.8 [facility] [address] 13938- 3429 10 Jan, 2016 Paranoid schizophrenia F20.0 [facility] [id number] [place] [address] 01057- 8320 Jan, [facility] [id number] [place] [address] 56405- 8920 Jan, Paranoid schizophrenia F20.0 and Depression with anxiety F41.8 [facility] [id number] [place] [address] 50081- 0352 Jan, [facility] [id number] [place] [address] 32332- 6409 Jan, [facility] [id number] [place] [address] 59582- 9885 28 Dec, 2015 [facility] [id number] [place] [address] 50689- 4745 23 Dec, 2015 Paranoid schizophrenia F20.0 [facility] [id number] [place] [address] 43702- 5646 Dec, Paranoid schizophrenia F20.0 and Depression with anxiety F41.8 [facility] [address], [place] [address]- 6556 Nov, [facility] [id number] [place] [address] 55253- 7431 Nov, Paranoid schizophrenia F20.0 [facility] [id number] [place] [address] 99031- 0463 Nov, Paranoid schizophrenia F20.0 and Depression with anxiety F41.8 [facility] [address] [place] [address] 78421- 6761 Nov, Type 2 diabetes mellitus without complication, without long- term current use of insulin E11.9 ; Paranoid schizophrenia F20.0 ; Chronic obstructive pulmonary disease, unspecified COPD type J44.9 ; Morbid obesity due to excess calories E66.01 and Parkinsonian tremor G20 [facility] [id number] [place] [phone] Nov, [facility] [id number] [place] [phone] Oct, Paranoid schizophrenia F20.0 [facility] [id number] [address] Oct, Paranoid schizophrenia F20.0 [facility] [id number] [address] Oct, Paranoid schizophrenia F20.0 and Depression with anxiety F41.8 [facility] [id number] [address] Oct, [facility] [id number] [place] [phone] Oct, Paranoid schizophrenia F20.0 and Depression with anxiety F41.8 [facility] [id number] [place] [address] [phone]- [phone] Oct, Nasal sore J34.89 [facility] [id number] [place] [address] [phone] Oct, Type 2 diabetes mellitus without complication, without long- term current use of insulin E11.9 ; Depression with anxiety F41.8 ; Hypothyroidism, unspecified type E03.9 and History of lupus Z87.39 [facility] [id number] [place] [address]89- 1757 Oct, [place] [id number] [place] [address] 99060- 3596 Oct, Type 2 diabetes mellitus without complication, [...] edema R60.9 and History of lupus Z87.39 [place] [id number] [place] [address] 67937- 1069 Feb, [place] [id number] [place] [address] 69800- 4172 Jan, [place] [id number] [place] [address] 39226- 6408 Jan, [place] [id number] [place] [address] 67623- 4100 Jan, [place] [id number] [place] [address] 08785- 4669 Dec, [facility] [id number] [place] [address] 83052- 1194 Nov, [place] [id number] [place] [address] 57195- 1074 Nov, [facility] [address] [facility] [id number] [place] [address] 2753 Oct, [facility] [id number] [place] [address] 5976 Oct, [facility] [address] [facility] [id number] [place] [address] Oct, [facility] [id number] [place] [address]- 0535 Sep, Allergic rhinitis 477.9 [facility] [address] [id number] [place] [address] 6882 Sep, Rhinitis, allergic 477.9 [facility] [address] [id number] [place] [address]- 4631 Sep, Rhinitis, allergic 477.9 [facility] [id number] [place] [address]- 8692 Sep, [facility] [id number] [place] [address]- 0712 August, [facility] [id number] [place] [address]- 4982 August, [facility] [id number] [place] [address]- 9072 August, [facility] [id number] [place] [address]- 4310 28 Jul, 2014 [facility] [address] [id number] [place] [address]- 6654 14 Jul, 2014 [facility] [address] [id number] [place] [address]- 3135 13 Jul, 2014 [facility] [address] [facility] [id number] [place] [address]- 3576 Jun, [facility] [address] [id number] [place] [address]- 3011 Jun, [facility] [place] [facility] [address] [id number] [place] [address]- 2718 Jun, [facility] [place] [facility] [address] [id number] [place] [address]- 9610 Jun, [facility] [place] [facility] [address] [id number] [place] [address]- 2707 Jun, [facility] [place] [facility] [address] [id number] [place] [address]- 5353 Jun, [facility] [place] [facility] [address] [id number] [place] [address]- 2706 Jun, [facility] [place] [facility] [address] [id number] [place] [address]- 2263 Jun, [facility] [place] [facility] [address] [id number] [place] [address]- 3162 May, [facility] [place] [facility] [address] [id number] [place] [address]- 9527 May, [facility] [place] [facility] [address] [id number] [place] [address]- 3766 May, [facility] [place] [facility] [address] [id number] [place] [address]- 7529 May, [facility] [place] [facility] [address] [id number] [place] [address]- 2614 Apr, [facility] [place] [facility] [address] [id number] [place] [address]- 6249 Mar, [facility] [place] [facility] [address] [id number] [place] [address]- 3090 Mar, [facility] [place] [facility] [address] [id number] [place] [address]- 5875 Mar, [facility] [place] [facility] [address] [id number] [place] [address]- 1484 Mar, [facility] [place] [facility] [address] [id number], [place] [address]- 5490 06 Mar, 2014 [facility] [place] [facility] [address] [id number] [place] [address]- 1147 Mar, [facility] [place] [facility] [address] [id number] [place] 4796 Mar, [facility] [place] [facility] [address] [facility] [id number] [place] [address]- 9788 Mar, [facility] [place] [facility] [address] [id number] [place] [address]- 8781 Mar, [facility] [place] [facility] [address] [facility] [id number] [place] [address]- 4832 Feb, [facility] [place] [facility] [address] [id number] [place] [address]- 0012 Feb, [facility] [place] [facility] [address] [facility] [id number], [place] [address]- 6020 Feb, [facility] [place] [facility] [address] [id number] [place] [address]- 3347 Feb, [facility] [place] [facility] [address] [facility] [id number] [place] [address]- 2561 Feb, [facility] [place] [facility] [address] [facility] [id number] [place] [address]- 1355 Feb, [facility] [place] [facility] [address] [id number], [place] [address]- 8744 Feb, [facility] [place] [facility] [address] [id number], [place] [address]- 8114 Feb, [facility] [place] [facility] [address] [id number], [place] [address]- 2580 Jan, [facility] [place] [facility] [address] [facility] [id number] [place] [address]- 9933 Jan, [facility] [place] [facility] [address] [facility] [id number], [place] [address]- 9650 16 Jan, 2014 [facility] [place] [facility] [address] [id number] [place] [address]- 0963 16 Jan, 2014 [facility] [place] [facility] [address] [id number] [place] [address]- 9113 15 Jan, 2014 [facility] [place] [facility] [address] [id number] [place] [address]- 1993 15 Jan, 2014 [facility] [place] [facility] [address] [id number] [place] [address]- 5502 14 Jan, 2014 [facility] [place] [facility] [address] [id number] [place] [address]- 2295 14 Jan, 2014 [facility] [place] [facility] [address] [id number] [place] [address]- 0539 14 Jan, 2014 [facility] [place] [facility] [address] [id number] [place] [address]- 5252 14 Jan, 2014 [facility] [place] [facility] [address] [id number] [place] [address]- 3135 18 Dec, 2013 [facility] [place] [facility] [address] [id number] [place] [address]- 6111 18 Dec, 2013 [facility] [place] [facility] [address] [id number] [place] [address]- 5683 10 Dec, 2013 [facility] [place] [facility] [address] [id number] [place] [address]- 7844 10 Dec, 2013 [facility] [place] [facility] [address] [id number] [place] [address]- 6398 Nov, [facility] [place] [facility] [address] [id number] [place] [address]- 4769 Nov, [facility] [place] [facility] [address] [id number] [place] [address]- 1233 Nov, [facility] [place] [facility] [address] [id number] [place] [address]- 3687 Nov, [facility] [place] [facility] [address] [id number] [place] [address]- 1537 Nov, [facility] [place] [facility] [address] [id number] [place] [address]- 1392 Oct, [facility] [place] [facility] [address] [id number] [place] [address]- 0700 Oct, [facility] [place] [facility] [address] [id number] [place] [address]- 8293 Oct, [facility] [place] [facility] [address] [id number] [place] [address]- 7977 Oct, [facility] [place] [facility] [address] [id number] [place] [address]- 8667 Sep, [facility] [place] [facility] [address] [id number] [place] [address]- 4283 Sep, [facility] [place] [facility] [address] [id number] [place] [address]- 2336 Sep, [facility] [place] [facility] [address] [id number] [place] [address]- 3339 Sep, [facility] [place] [facility] [address] [id number] [place] [address]- 0934 Sep, [facility] [place] [facility] [address] [id number] [place] [address]- 5437 Sep, [facility] [place] [facility] [address] [id number] [place] [address]- 4833 Sep, [facility] [place] [facility] [address] [id number] [place] [address]- 5659 Sep, [facility] [place] [facility] [address] [id number] [place] [address]- 2780 August, [facility] [place] [facility] [address] [id number] [place] [address]- 4572 August, [facility] [place] [facility] [address] [id number] [place] [address]- 4973 August, [facility] [place] [facility] [address] [id number] [place] [address]- 3201 August, [facility] [place] [facility] [address] [id number] [place] [address]- 9376 August, [facility] [place] [facility] [address] [id number] [place] [address]- 9906 August, [facility] [place] [facility] [address] [id number] [place] [address]- 9601 August, [facility] [place] [facility] [address] [id number] [place] [address]- 4538 Jul, [facility] [place] [facility] [address] [id number] [place] [address]- 6593 Jul, [facility] [place] [facility] [address] [id number] [place] [address]- 0603 Jul, [facility] [place] [facility] [address] [id number] [place] [address]- 4624 Jul, [facility] [place] [facility] [address] [id number] [place] [address]- 7905 Jul, [facility] [place] [facility] [address] [id number] [place] [address]- 8503 Jul, [facility] [place] [facility] [address] [id number] [place] [address]- 7993 Jul, [facility] [place] [facility] [address] [id number] [place] [address]- 2248 Jul, [facility] [place] [facility] [address] [id number] [place] [address]- 9833 Jul, [facility] [place] [facility] [address] [id number] [place] [address]- 7241 Jul, [facility] [place] [facility] [address] [id number] [place] [address]- 4284 Jul, [facility] [place] [facility] [address] [id number] [place] [address]- 3482 Jul, [facility] [place] [facility] [address] [id number] [place] [address]- 3015 Jun, [facility] [place] [facility] [address] [id number] [place] [address]- 4112 Jun, [facility] [place] [facility] [address] [id number] [place] [address]- 0020 Jun, [facility] [place] [facility] [address] [id number] [place] [address]- 7783 Jun, [facility] [place] [facility] [address] [id number] [place] [address]- 2604 Jun, [facility] [place] [facility] [address] [id number] [place] [address]- 9201 May, [facility] [place] [facility] [address] [id number] [place] [address]- 6817 May, [facility] [place] [facility] [address] [id number] [place] [address]- 5656 May, [facility] [place] [facility] [address] [id number] [place] [address]- 0932 May, [facility] [place] [facility] [address] [id number] [place] [address]- 0097 May, [facility] [place] [facility] [address] [id number] [place] [address]- 8502 May, [facility] [place] [facility] [address] [id number] [place] [address]- 1172 May, [facility] [place] [facility] [address] [id number] [place] [address]- 0321 May, [facility] [place] [facility] [address] [id number] [place] [address]- 7315 Mar, [facility] [place] [facility] [address] [id number] [place] 5957 Mar, [facility] [place] [facility] [address] [id number] [place] [address]- 3050 Mar, [facility] [place] [facility] [address] [id number] [place] 9948 Mar, [facility] [place] [facility] [address] [id number] [place] 6498 Mar, [facility] [place] [facility] [address] [id number] [place] [address]- 2729 Mar, [facility] [place] [facility] [address] [id number] [place] [address]- 4000 Feb, [facility] [place] [facility] [address] [id number] [place] 1509 Feb, [facility] [place] [facility] [address] [id number] [place] [address]- 1181 Jan, [facility] [place] [facility] [address] [id number] [place] [address]- 5559 Jan, [facility] [place] [facility] [address] [id number] [place] [address]- 7692 Jan, [facility] [place] [facility] [address] [id number] [place] [address]- 8121 Jan, [facility] [place] [facility] [address] [facility] [id number] [place] [address]- 2576 Jan, [facility] [place] [facility] [address] [id number] [place] [address]- 7827 Jan, [facility] [place] [facility] [address] [id number], [place] [address]- 1566 Jan, [facility] [place] [facility] [address] [id number] [place] [address]- 6616 Jan, [facility] [place] [facility] [address] [facility] [id number] [place] [address]- 4628 08 Jan, 2013 [facility] [place] [facility] [address] [id number], [place] [address]- 9316 Jan, [facility] [place] [facility] [address] [id number] [place] [address]- 6931 Dec, [facility] [address] [id number] [place] [address]- 4859 Nov, [facility] [address] [id number] [place] [address]- 2546 Nov, [facility] [address] [id number] [place] [address]- 2911 Nov, [facility] [address] [id number] [place] [address]- 1714 Oct, [facility] [address] [id number] [place] [address]- 1001 Oct, [facility] [address] [id number] [place] [address]- 2086 August, [facility] [address] [id number] [place] [address]- 9053 Apr, [facility] [address] [id number] [place] [address]- 1476 Apr, [facility] [address] [id number] [place] [address]- 8761 Feb, [facility] [address] [id number] [place] [address]- 0426 Feb, [facility] [address] [id number] [place] [address]- 3284 Dec, [facility] [place] [facility] [address] [id number] [place] [address]- 5063 Dec, [facility] [place] [facility] [address] [id number] [place] [address]- 5531 Oct, [facility] [place] [facility] [address] [id number] [place] [address]- 9065 Oct, [facility] [address] [id number] [place] [address] 2546 Oct, [facility] [address] [facility] [id number] [place] [address]- 2546 Jul, IMMUNIZATIONS Vaccine Route Administration Date Status INVEGA (PT'S OWN) IM Intramuscular September 02, 2017 Administered SOCIAL HISTORY Never Assessed REASON FOR VISIT Invega injection PLAN OF CARE VITAL SIGNS MEDICATIONS Unknown Medications RESULTS No Results PROCEDURES Procedure Date Ordered Result Body Site INVEGA (PT'S OWN) September 02, 2017 THER/PROPH/DIAG INJ, SC/IM September 02, 2017 INSTRUCTIONS MEDICATIONS ADMINISTERED No Known [...] for psychosis/mental illness , last one in [facility] 4 years ago
--- OUTSIDE RECORDS SUMMARY | 2018-09-02 13:48 | XMS REPORT ---
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 Role Phone KATYA WILSON Unavailable PROBLEMS Type Condition ICD9-CM Code SEQ17-GX Code Onset Dates Condition Status SNOMED Code Problem OAB (overactive bladder) N32.81 Active 923992531 Problem Depression with anxiety F41.8 Active 303633853 Problem Other seasonal allergic rhinitis J30.2 Active 429012808 Problem Chronic obstructive pulmonary disease, unspecified COPD type J44.9 Active 45656460 Problem Tobacco abuse Z72.0 Active 370122537 Problem Morbid obesity due to excess calories E66.01 Active 162724452 Problem Dyslipidemia E78.5 Active 693911315 Problem Hypothyroidism (acquired) E03.9 Active 403995695 Problem Essential hypertension I10 Active 06127873 Problem Diabetic polyneuropathy associated with type 2 diabetes mellitus E11.42 Active 371679879 Problem Type 2 diabetes mellitus with diabetic neuropathic arthropathy, 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 Active 007268482 Problem Type 2 diabetes mellitus without complication, without long-term current use of insulin E11.9 Active 819015802 Problem Paranoid schizophrenia F20.0 Active 51618216 Problem Chronic pain syndrome G89.4 Active 145444091 Problem Migraine without aura and without status migrainosus, not intractable G43.009 Active 496726579 Problem Gastroesophageal reflux disease, esophagitis presence not specified K21.9 Active 071495231 Problem Seasonal allergic rhinitis due to pollen J30.1 Active 10264452 Problem COPD exacerbation J44.1 Active 203570185 Problem Seasonal allergic rhinitis due to other allergic trigger J30.89 Active 704145956 Problem Schizoaffective disorder, depressive type F25.1 Active 86873892 Problem History of lupus Z87.39 Active 770583299 Problem Gastroesophageal reflux disease without esophagitis K21.9 Active 718678805 Problem Menopausal syndrome (hot flashes) N95.1 Active 423976201 Problem Other allergic rhinitis J30.89 Active 945793998 Problem Primary insomnia F51.01 Active 4615751 Problem DM neuro manif type II E11.49 Active 94833504 ALLERGIES Substance Reaction Event Type Date Status Sulfamethoxazole-Trimethoprim Unknown Drug Allergy August, Active Penicillin V Potassium Unknown Drug Allergy August, Active ENCOUNTERS Encounter Location Date Diagnosis [place] [id number] [place] [address] 78033- 5303 Dec, [place] [id number] [place] [address] 80711- 2371 Nov, [place] [id number] [place] [address] 11918- 2313 Nov, [place] [id number] [place] [address] 84068- 6918 Oct, Paranoid schizophrenia F20.[address] [id number] [address] Oct Chronic pain syndrome G89.4 and Schizoaffective disorder, depressive type F25.1 [place] [id number] [place] [address] 34174- 5165 Oct, Chronic pain syndrome G89.4 and Schizoaffective disorder, depressive type F25.1 [place] [address] [place] [address] 98678- 1251 Oct, Type 2 diabetes mellitus without complication, without long- term current use of insulin E11.9 [place] [address] [place] [address] 37320- 1158 12 Oct, 2017 Essential hypertension I10 and DM neuro manif type II E11.49 [place] [address] [id number] [place] [address] 27393- 1267 Oct, [place] [id number] [place] [address] 32132- 3004 Oct, Schizoaffective disorder, depressive type F25.1 and BMI 45.0 -49.9, adult Z68.42 [facility] [place] [id number] [place] [address] 69414- 6041 Oct, [facility] [place] [id number] [place] [address] 26066- 3566 Oct, Paranoid schizophrenia F20.0 [facility] [place] [address] [place] [address] 75452- 8748 Oct, Type 2 diabetes mellitus with diabetic neuropathic arthropathy, 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 ; Essential hypertension I10 ; Hypothyroidism (acquired) E03.9 ; Chronic obstructive pulmonary disease, unspecified COPD type J44.9 and Diabetic polyneuropathy associated with type 2 diabetes mellitus E11.42 [place] [id number] [place] [address] 69233- 4792 Sep, Paranoid schizophrenia F20.0 [place] [id number] [place] [address] 88639- 1818 Sep, Paranoid schizophrenia F20.0 and BMI 45.0-49.9, adult Z68.42 [place] [id number] [place] [address] 57262- 8869 Sep, Schizoaffective disorder, depressive type F25.1 [place] [id number] [place] [address] 68370- 2249 Sep, [facility], [place] [id number] [place] [address] 30111- 1924 Sep, Paranoid schizophrenia F20.0 [facility] [place] [id number] [place] [address] 86738- 4773 Sep, [place] [id number] [place] [address] 01894- 1039 Sep, Hypothyroidism (acquired) E03.9 [facility] [place] [id number] [place] [address] 22880- 0913 Sep, [place] [id number] [place] [address] 50491- 4545 August, Schizoaffective disorder, depressive type F25.1 [facility] [place] [address] 21296- 1435 August, [facility] [place] [id number] [place] [address] 22034- 1662 August, [facility] [place] [address] 88244- 3735 August, [place] [address] 28121- 0686 August, Paranoid schizophrenia F20.0 [place] [id number] [place] [address] 64601- 5233 August, History of lupus Z87.39 and Chronic pain syndrome G89.4 [place] [address] 83772- 4719 August, [facility] IN [facility] [id number] [place] [address] 79779 -5992 August, Seasonal allergic rhinitis, unspecified trigger J30.2 and BMI 45.0-49.9, adult Z68.42 [place] [id number] [place] [address] 83469- 0173 Jul, Schizoaffective disorder, depressive type F25.1 [place] [id number] [place] [address] 00500- 7191 Jul, [place] [id number] [place] [address] 74769- 5842 Jul, Hypothyroidism (acquired) E03.9 [place] [id number] [place] [address] 13559- 1345 Jul, Chronic obstructive pulmonary disease, unspecified COPD type J44.9 and Type 2 diabetes mellitus without complication, without long-term current use of insulin E11.9 [place] [id number] [place] [address] 22672- 9777 Jul, Paranoid schizophrenia F20.0 [facility], [place] [address] 95353- 3451 Jun, Hypothyroidism (acquired) E03.9 and Seasonal allergic rhinitis due to pollen J30.1 [facility]ALK IN [facility] [address] 69974 -2876 Jun, Shortness of breath at rest R06.02 ; COPD exacerbation J44.1 and BMI 45.0-49.9, adult Z68.42 [place] [address] 03864- 5646 Jun, [place] [address] 35098- 4120 Jun, Paranoid schizophrenia F20.0 ; Depression with anxiety F41.8 and BMI 45.0-49.9, adult Z68.42 [facility] [place] [address] 34062- 8219 20 Jun, 2017 Schizoaffective disorder, depressive type F25.1 [facility] [address] [id number] 13 Jun, 2017 Dental caries K02.9 [place] [address] 10042- 1458 12 Jun, 2017 Paranoid schizophrenia F20.0 [facility] [place] [id number] [place] [address] 78805- 1658 May, Migraine without aura and without status migrainosus, not intractable G43.009 ; DM neuro manif type II E11.49 and Type 2 diabetes mellitus without complication, without long-term current use of insulin E11.9 [facility] [place] [id number] [place] [address] 44298- 8136 May, Migraine without aura and without status migrainosus, not intractable G43.009 [place] [address] [place] [address]- 9758 May, Depression with anxiety F41.8 [facility] [id number] [place] [address] [id number] May, [facility], [place] [address] 47522- 9074 May, [facility] [place] [address] 51011- 2426 May, [facility] [place] [address] 56030- 2741 May, Hypothyroidism (acquired) E03.9 [place] [address] 70761- 7149 May, Paranoid schizophrenia F20.0 [place] [address] 32055- 9158 May, Type 2 diabetes mellitus without complication, [...] N32.81 and Controlled substance agreement signed Z79.899 [facility], [place] [id number] [place] [address] 15480- 8920 May, Controlled substance agreement signed Z79.899 [place] [address] 88229- 4175 Apr, [facility] [id number] [place] [address] [id number] Apr, Dental examination Z01.20 [facility], [place] [id number] [place] [address] 52142- 2664 Apr, Paranoid schizophrenia F20.0 [facility], [place] [id number] [place] [address] 37462- 4541 Apr, Hypertension, unspecified type I10 [facility], [place] [id number] [place] [address] 16715- 1718 Apr, Paranoid schizophrenia F20.0 [facility], [place] [id number] [place] [address] 16808- 8069 Apr, [facility] [place] [address] 65314- 5072 Apr, Tobacco abuse Z72.0 [facility], [place] [id number] [place] [address] 45025- 6543 Apr, [facility] [place] [id number] [place] [address] 09956- 5222 Mar, [facility] [place] [id number] [place] [address] 94079- 7652 Mar, Paranoid schizophrenia F20.0 and BMI 45.0-49.9, adult Z68.42 [facility], [place] [id number] [place] [address] 70976- 1259 Mar, Schizoaffective disorder, depressive type F25.1 [facility], [place] [id number] [place] [address] 47417- 6933 Mar, [facility] [place] [id number] [place] [address] 61166- 2295 Mar, Hypothyroidism, unspecified type E03.9 [facility] [place] [id number] [place] [address] 09782- 8513 Mar, Schizoaffective disorder, depressive type F25.1 [facility] [id number] [place] [address] 47920 -1532 Feb, Gastroenteritis K52.9 and BMI 45.0-49.9, adult Z68.42 [facility] [place] [id number] [place] [address] 99087- 4484 Feb, [facility] [place] [id number] [place] [address] 15806- 1969 Feb, [facility] [place] [id number] [place] [address] 25059- 1170 Feb, [facility] [place] [id number] [place] [address] 88668- 3657 Feb, [place] [address] 66204- 8306 Feb, Paranoid schizophrenia F20.0 [place] [id number] [place] [address] 65363- 9948 Feb, Gastroesophageal reflux disease without esophagitis K21.9 ; Other seasonal allergic rhinitis J30.2 ; Other allergic rhinitis J30.89 ; Tobacco abuse Z72.0 and BMI 40.0-44.9, adult Z68.41 [place] [id number] [place] [address] 90908- 6556 Feb, Onychomycosis B35.1 ; Callus of foot L84 and DM neuro manif type II E11.49 [place] [id number] [place] [address] 53804- 8984 Jan, Chronic allergic rhinitis J30.9 [facility] [place] [id number] [place] [address] 43669- 0050 Jan, [facility] [place] [id number] [place] [address] 22608- 7148 Jan, Schizoaffective disorder, depressive type F25.1 [facility] [place] [id number] [place] [address] 73261- 5690 Jan, [facility] [id number] [place] [address] 01965 -3700 Jan, Sore throat J02.9 and Seasonal allergic rhinitis due to other allergic trigger J30.89 [facility] [place] [id number] [place] [address] 48921- 2494 04 Jan, 2017 [facility] [place] [id number] [place] [address] 03932- 3340 Jan, [facility] [id number] [place] [address] 37225 -0091 Jan, Chronic allergic rhinitis J30.9 [facility] [place] [id number] [place] [address] 36196- 1168 27 Dec, 2016 Paranoid schizophrenia F20.0 ; Primary insomnia F51.01 and Schizoaffective disorder, depressive type F25.1 [place] [address] [place] [address] 01380- 8291 21 Dec, 2016 Chronic pain syndrome G89.4 ; Cervicalgia of occipito- atlanto-axial region M54.2 ; Menopausal syndrome (hot flashes) N95.1 and Encounter for immunization Z23 [facility] [place] [id number] [place] [address] 60191- 9756 14 Dec, 2016 [place] [id number] [place] [address] 32478- 4351 13 Dec, 2016 [facility] [place] [id number] [place] [address] 71213- 5290 08 Dec, 2016 Paranoid schizophrenia F20.0 [facility] [place] [id number] [place] [address] 36831- 8943 Dec, Schizoaffective disorder, depressive type F25.1 [facility] [place] [id number] [place] [address] 47360- 2059 Nov, Hypothyroidism, unspecified type E03.9 [facility] [id number] [place] [address] 84728 -0464 Nov, Acute seasonal allergic rhinitis due to other allergen J30.89 [facility] [place] [address] [place] [address] 52239- 0640 Nov, [place] [id number] [place] [address] 00061- 9546 Nov, Hypothyroidism, unspecified type E03.9 and Other elevated white blood cell (WBC) count D72.828 [place] [address] [place] [address] 82522- 7783 Nov, Schizoaffective disorder, depressive type F25.1 [place] [address] [place] [address] 60020- 4375 Nov, Paranoid schizophrenia F20.0 [place] [address] [place] [address] 81054- 3995 Nov, Type 2 diabetes mellitus without complication, without long- term current use of insulin E11.9 ; Morbid obesity due to excess calories E66.01 and Chronic pain syndrome G89.4 [place] [address] [address] [place] [address] 57285- 9118 Oct, Paranoid schizophrenia F20.0 [place] [address] [address] [place] [address] 18565- 5050 Oct, [place] [address] [address] [place] [address] 82620- 3584 Oct, Schizoaffective disorder, depressive type F25.1 [place] [address] [place] [address] [place] [address] 88704- 4306 Oct, Hypothyroidism, unspecified type E03.9 and Other elevated white blood cell (WBC) count D72.828 [place] [address] [place] [address] 49114- 9026 Oct, Morbid obesity due to excess calories E66.01 ; Chronic obstructive pulmonary disease, unspecified COPD type J44.9 ; History of lupus Z87.39 ; Hypothyroidism, unspecified type E03.9 ; Gastroesophageal reflux disease without esophagitis K21.9 ; Primary insomnia F51.01 and Chronic pain syndrome G89.4 [facility] [place] [address] [address]- 6227 30 Sep, 2016 [facility] [place] [address] [place] [address] 89510- 2940 Sep, [facility] [place] [address] [place] [address] 21459- 9358 Sep, [facility] [place] [id number] [place] [address] 09087- 6154 Sep, Paranoid schizophrenia F20.0 [facility] [place] [address] [place] [address] 88565- 4374 Sep, [facility] [place] [id number] [place] [address] 81828- 7608 Sep, Paranoid schizophrenia F20.0 [facility] [place] [id number] [place] [address] 80367- 7226 Sep, [facility] [place] [address] [place] [address] 47033- 9715 August, Paranoid schizophrenia F20.0 [facility] [place] [address] [place] [address] 64278- 2222 Jul, [facility] [place] [address] [place] [address] 67318- 1411 Jul, Type 2 diabetes mellitus without complication, without long- term current use of insulin E11.9 ; Morbid obesity due to excess calories E66.01 ; Depression with anxiety F41.8 ; Hypothyroidism, unspecified type E03.9 ; Seasonal allergic rhinitis due to other allergic trigger J30.89 ; Pain, dental K08.89 and Gastroesophageal reflux disease without esophagitis K21.9 [facility] [address] [address] 12 Jul, 2016 Dental examination Z01.20 [facility] [place] [address] [address]- 4509 07 Jul, 2016 Paranoid schizophrenia F20.0 [place] [id number] [place] [address] 60799- 1229 13 Jun, 2016 Paranoid schizophrenia F20.0 and Depression with anxiety F41.8 [place] [address] 24815- 7641 10 Jun, 2016 Paranoid schizophrenia F20.0 and Depression with anxiety F41.8 [place] [address] 48555- 9554 09 Jun, 2016 [place] [address] 62322- 7385 Jun, [facility] [address] 48673 -8681 Jun, Seasonal allergic rhinitis due to other allergic trigger J30.89 [facility] [address] 65696 -7947 May, Sore throat J02.9 ; Other viral agents as the cause of diseases classified elsewhere B97.89 and Acute upper respiratory infection, unspecified J06.9 [place] [address] 13121- 4873 May, Paranoid schizophrenia F20.0 and Depression with anxiety F41.8 [place] [address] [place] [address] 74426- 7446 Apr, Other seasonal allergic rhinitis J30.2 [place] [address] [place] [address] 77946- 4180 Apr, Paranoid schizophrenia F20.0 and Depression with anxiety F41.8 [facility] [address] 52691 -2893 Apr, Bronchitis J40 and Sore throat J02.9 [place] [address] [place] [address] 32988- 6648 Apr, Type 2 diabetes mellitus without complication, without long- term current use of insulin E11.9 [facility] IN [facility] [address], [place] [address] -9723 Apr, Bronchitis J40 [facility] [place] [id number] [place] [address] 11761- 1590 Apr, [facility] [place] [id number] [place] [address] 64083- 8727 Apr, [facility] [place] [id number] [place] [address] 17396- 7721 Mar, Type 2 diabetes mellitus without complication, [...] R60.9 and Other seasonal allergic rhinitis J30.2 [place] [id number] [place] [address] 55903- 4146 Mar, Paranoid schizophrenia F20.0 and Depression with anxiety F41.8 [place] [id number] [place] [address] 07344- 7510 Feb, [place] [id number] [place] [address] 10831- 0997 Feb, [place] [id number] [place] [address] 20911- 4345 Feb, [place] [address] [id number] [place] [address] 12133- 8102 Feb, [place] [address] [address] [place] [address] 56789- 4679 Feb, Type 2 diabetes mellitus without complication, without long- term current use of insulin E11.9 ; ARIAS on CPAP G47.33 and Preoperative evaluation to rule out surgical contraindication Z01.818 [place] [address] [place] [address]- 3837 Feb, Paranoid schizophrenia F20.0 and Depression with anxiety F41.8 [facility] [place] [id number] [place] [address]- 8024 Jan, [facility] [place] [id number] [address] Jan, Paranoid schizophrenia F20.0 and Depression with anxiety F41.8 [facility], [place] [address] [id number] [place] [address] Jan, [facility], [place] [address] [facility] [id number] [place] [address] Jan, Muscle strain T14.8 [facility], [place] [address] [id number] [address] Jan, Paranoid schizophrenia F20.0 [facility], [place] [id number] [address] Jan, [facility], [place] [id number] [address] Jan, Paranoid schizophrenia F20.0 and Depression with anxiety F41.8 [facility], [place] [address] [id number] [address] Jan, [facility], [place] [id number], [place] [address] Jan, [facility], [place] [id number] [address] 28 Dec, 2015 [facility], [place] [id number], [place] [address] 23 Sep, 2015 Paranoid schizophrenia F20.0 [facility], [place] [address] [facility] [id number] [address] 16 Sep2015 Paranoid schizophrenia F20.0 and Depression with anxiety F41.8 [facility], [place] [id number] [place] [address] Nov, [facility], [place] [id number], [place] [address] Nov, Paranoid schizophrenia F20.0 [facility] [facility] [place] [id number] [place] [address] 40755- 1794 Nov, Paranoid schizophrenia F20.0 and Depression with anxiety F41.8 [facility] [id number] [place] [address] 10778- 5501 Nov, Type 2 diabetes mellitus without complication, without long- term current use of insulin E11.9 ; Paranoid schizophrenia F20.0 ; Chronic obstructive pulmonary disease, unspecified COPD type J44.9 ; Morbid obesity due to excess calories E66.01 and Parkinsonian tremor G20 [place] [address] [address], [place] [address] Nov, [facility] [id number] [place] [address] 49087- 5042 Oct, Paranoid schizophrenia F20.0 [facility] [id number] [place] [address] 50648- 3269 Oct, Paranoid schizophrenia F20.0 [place] [id number] [place] [address] 26480- 5255 Oct, Paranoid schizophrenia F20.0 and Depression with anxiety F41.8 [place] [address], [place] [address]- 5408 Oct, [facility] [id number] [place] [address] 87318- 2118 Oct, Paranoid schizophrenia F20.0 and Depression with anxiety F41.8 [facility] [place] [id number] [place] [address] 95769- 7774 Oct, Nasal sore J34.89 [facility] [place] [address], [place] [address] 6157 Oct, Type 2 diabetes mellitus without complication, without long- term current use of insulin E11.9 ; Depression with anxiety F41.8 ; Hypothyroidism, unspecified type E03.9 and History of lupus Z87.39 [facility] [place] [id number] [place] [address] 32920- 1619 Oct, [facility] [place] [id number] [place] [address] 42144- 0155 Oct, Type 2 diabetes mellitus without complication, [...] edema R60.9 and History of lupus Z87.39 [facility] [id number] [place] [address] 31021- 9833 Feb, [place] [address] [address]- 1353 Jan, [facility] [place] [id number] [place] [address] 01565- 8890 Jan, [facility] [id number] [place] [address] 61349- 5785 Jan, [facility] [place] [id number] [place] [address] 00219- 0634 Dec, [facility] [place] [address] 15870- 3625 Nov, [facility] [place] [id number] [place] [address] [id number]- 6859 Nov, [facility] [place] [id number] [place] [address] 46359- 7767 Oct, [facility] [place] [address] [facility] [id number] [place] [address]- 0122 Oct, [facility] [address] [place] [address]- 1588 Oct, [facility] [address] [facility] [id number] [place] [address]- 2759 Sep, Allergic rhinitis 477.9 [facility] [id number] [place] [address]- 0931 Sep, Rhinitis, allergic 477.9 [facility] [place] [id number] [place] [address]- 8317 Sep, Rhinitis, allergic 477.9 [facility] [address] [place] [address]- 0784 Sep, [facility] [place] [address] [place] [address]- 2491 August, [facility] [address] [place] [address]- 9605 August, [facility] [place] [address] [place] [address]- 1004 August, [facility] [place] [address] [place] [address]- 0998 28 Jul, 2014 [facility] [place] [address] [place] [address]- 3468 14 Jul, 2014 [facility] [id number] [place] [address]- 9455 13 Jul, 2014 [facility] [address] [id number] [place] [address]- 6328 16 Jun, 2014 [facility] [address] 9620 16 Jun, 2014 [facility] [address] [id number] [place] [address]- 1604 Jun, [facility] [place] [facility] [address] [id number] [place] [address]- 1057 Jun, [facility] [place] [facility] [address] [id number] [place] [address]- 8491 Jun, [facility] [place] [facility] [address] [id number] [place] [address]- 5585 Jun, [facility] [place] [facility] [address] [id number] [place] [address]- 4347 Jun, 2014 [facility] [place] [facility] [address] [id number] [place] [address]- 3254 Jun, [facility] [place] [facility] [address] [id number] [place] [address]- 2038 May, 2014 [facility] [place] [facility] [address] [id number] [place] [address]- 3457 May, 2014 [facility] [place] [facility] [address] [id number] [place] [address]- 2747 May, [facility] [place] [facility] [address] [id number] [place] [address]- 0096 May, [facility] [place] [facility] [address] [id number] [place] [address]- 3151 Apr, [facility] [place] [facility] [address] [id number] [place] [address]- 1708 Mar, [facility] [place] [facility] [address] [id number] [place] [address]- 5323 Mar, [facility] [place] [facility] [address] [id number] [place] [address]- 8663 Mar, [facility] [place] [facility] [address] [id number] [place] [address]- 1356 Mar, [facility] [place] [facility] [address] [id number] [place] 1692 Mar, [facility] [place] [facility] [address] [id number] [address]- 7666 Mar, [facility] [place] [facility] [address] [id number] [place] [address]- 0183 Mar, [facility] [place] [facility] [address] [id number] [place] [address]- 2685 Mar, [facility] [place] [facility] [address] [id number] [place] [address]- 4183 Mar, [facility] [place] [facility] [address] [id number] [place] [address]- 6245 Feb, [facility] [place] [facility] [address] [id number] [place] [address]- 9979 Feb, [facility] [place] [facility] [address] [id number] [place] [address]- 2636 Feb, [facility] [place] [facility] [address] [id number] [place] [address]- 5247 Feb, [facility] [place] [facility] [address] [id number] [place] [address]- 0598 Feb, [facility] [place] [facility] [address] [id number] [place] [address]- 5253 Feb, [facility] [place] [facility] [address] [id number] [place] [address]- 4040 Feb, [facility] [place] [facility] [address] [id number], [place] [address]- 4419 Feb, [facility] [place] [facility] [address] [id number], [place] [address]- 7996 Jan, [facility] [place] [facility] [address] [id number] [place] [address]- 6710 Jan, [facility] [place] [facility] [address] [id number] [place] [address]- 6512 Jan, [facility] [place] [facility] [address] [id number], [place] [address]- 9483 Jan, [facility] [place] [facility] [address] [id number] [place] [address]- 6371 15 Jan, 2014 [facility] [place] [facility] [address] [id number] [place] [address]- 6933 15 Jan, 2014 [facility] [place] [facility] [address] [id number] [place] [address]- 7090 14 Jan, 2014 [facility] [place] [facility] [address] [id number] [place] [address]- 4224 14 Jan, 2014 [facility] [place] [facility] [address] [id number] [place] [address]- 6495 14 Jan, 2014 [facility] [place] [facility] [address] [id number] [place] [address]- 2377 14 Jan, 2014 [facility] [place] [facility] [address] [id number] [place] [address]- 4824 18 Dec, 2013 [facility] [place] [facility] [address] [id number] [place] [address]- 7211 18 Dec, 2013 [facility] [place] [facility] [address] [id number] [place] [address]- 8445 10 Dec, 2013 [facility] [place] [facility] [address] [id number] [place] [address]- 0496 10 Dec, 2013 [facility] [place] [facility] [address] [id number] [place] [address]- 3953 Nov, [facility] [place] [facility] [address] [id number] [place] [address]- 5958 Nov, [facility] [place] [facility] [address] [id number] [place] [address]- 6433 Nov, [facility] [place] [facility] [address] [id number] [place] [address]- 3039 Nov, [facility] [place] [facility] [address] [id number] [place] [address]- 0601 Nov, [facility] [place] [facility] [address] [id number] [place] [address]- 0176 Oct, [facility] [place] [facility] [address] [id number] [place] [address]- 9985 Oct, [facility] [place] [facility] [address] [id number] [place] [address]- 9297 Oct, [facility] [place] [facility] [address] [id number] [place] [address]- 6728 Oct, [facility] [place] [facility] [address] [id number] [place] [address]- 0353 Sep, [facility] [place] [facility] [address] [id number] [place] [address]- 0362 Sep, [facility] [place] [facility] [address] [id number] [place] [address]- 9501 Sep, [facility] [place] [facility] [address] [id number] [place] [address]- 7501 Sep, [facility] [place] [facility] [address] [id number] [place] [address]- 2544 Sep, [facility] [place] [facility] [address] [id number] [place] [address]- 2168 Sep, [facility] [place] [facility] [address] [id number] [place] [address]- 5533 Sep, [facility] [place] [facility] [address] [id number] [place] [address]- 6201 Sep, [facility] [place] [facility] [address] [id number] [place] [address]- 6031 August, [facility] [place] [facility] [address] [id number] [place] [address]- 9569 August, [facility] [place] [facility] [address] [id number] [place] [address]- 0104 August, [facility] [place] [facility] [address] [id number] [place] [address]- 0145 August, [facility] [place] [facility] [address] [id number] [place] [address]- 9960 August, [facility] [place] [facility] [address] [id number] [place] [address]- 2295 August, [facility] [place] [facility] [address] [id number] [place] [address]- 3005 August, [facility] [place] [facility] [address] [id number] [place] [address]- 9003 Jul, [facility] [place] [facility] [address] [id number] [place] [address]- 5977 Jul, [facility] [place] [facility] [address] [id number] [place] [address]- 4463 Jul, [facility] [place] [facility] [address] [id number] [place] [address]- 4021 Jul, [facility] [place] [facility] [address] [id number] [place] [address]- 8419 Jul, [facility] [place] [facility] [address] [id number] [place] [address]- 7421 Jul, [facility] [place] [facility] [address] [id number] [place] [address]- 4580 Jul, [facility] [place] [facility] [address] [id number] [place] [address]- 2746 Jul, [facility] [place] [facility] [address] [id number] [place] [address]- 8814 Jul, [facility] [place] [facility] [address] [id number] [place] [address]- 4646 Jul, [facility] [place] [facility] [address] [id number] [place] [address]- 5969 Jul, [facility] [place] [facility] [address] [id number] [place] [address]- 3048 Jul, [facility] [place] [facility] [address] [id number] [place] [address]- 6514 Jun, [facility] [place] [facility] [address] [id number] [place] [address]- 0407 Jun, [facility] [place] [facility] [address] [id number] [place] [address]- 9951 Jun, [facility] [place] [facility] [address] [id number] [place] [address]- 3879 Jun, [facility] [place] [facility] [address] [id number] [place] [address]- 5497 Jun, [facility] [place] [facility] [address] [id number] [place] [address]- 7863 May, [facility] [place] [facility] [address] [id number] [place] [address]- 9049 May, [facility] [place] [facility] [address] [facility] [id number] [place] [address]- 7921 May, [facility] [place] [facility] [address] [id number] [place] [address]- 7753 May, [facility] [place] [facility] [address] [facility] [id number] [place] [address]- 7561 May, [facility] [place] [facility] [address] [facility] [id number] [place] [address]- 9576 May, [facility] [place] [facility] [address] [facility] [id number] [place] [address]- 0046 May, [facility] [place] [facility] [address] [id number], [place] [address]- 9179 May, [facility] [place] [facility] [address] [facility] [id number] [place] [address]- 4909 Mar, [facility] [place] [facility] [address] [id number] [place] [address]- 3977 Mar, [facility] [place] [facility] [address] [facility] [id number] [place] [address]- 3173 Mar, [facility] [place] [facility] [address] [facility] [id number], [place] [address]- 1472 Mar, [facility] [place] [facility] [address] [id number] [place] [address]- 8150 Mar, [facility] [place] [facility] [address] [id number] [place] 0277 Mar, [facility] [place] [facility] [address] [id number] [place] [address]- 7597 Feb, [facility] [place] [facility] [address] [id number] [place] [address]- 4730 Feb, [facility] [place] [facility] [address] [id number] [place] [address]- 5317 Jan, [facility] [place] [facility] [address] [id number] [place] [address]- 5171 Jan, [facility] [place] [facility] [address] [facility] [id number], [place] [address]- 4446 Jan, [facility] [place] [facility] [address] [id number], [place] [address]- 0860 Jan, [facility] [place] [facility] [address] [facility] [id number], [place] [address]- 5807 Jan, [facility] [place] [facility] [address] [facility] [id number], [place] [address]- 9759 Jan, [facility] [place] [facility] [address] [id number], [place] [address]- 9527 Jan, [facility] [place] [facility] [address] [id number], [place] [address]- 0617 Jan, [facility] [place] [facility] [address] [id number], [place] [address]- 0540 08 Jan, 2013 [facility] [place] [facility] [address] [facility] [id number], [place] [address]- 0532 Jan, [facility] [place] [facility] [address] [facility] [id number], [place] [address]- 4096 16 Dec, 2012 [facility] [place] [facility] [address] [id number] [place] [address]- 9876 Nov, [facility] [place] [facility] [address] [id number] [place] [address]- 8042 Nov, [facility] [place] [facility] [address] [id number] [place] [address]- 2546 Nov, [facility] [place] [facility] [address] [id number] [place] [address]- 9642 Oct, [facility] [place] [facility] [address] [id number] [place] [address]- 9991 Oct, [facility] [place] [facility] [address] [id number] [place] [address]- 8650 August, [facility] [place] [facility] [address] [id number] [place] [address]- 5257 Apr, [facility] [place] [facility] [address] [id number] [place] [address]- 8800 Apr, [facility] [place] [facility] [address] [id number] [place] [address]- 8359 Feb, [facility] [place] [facility] [address] [id number] [place] [address]- 6356 Feb, [facility] [place] [facility] [address] [id number] [place] [address]- 1932 Dec, [facility] [place] [facility] [address] [id number] [place] [address]- 9778 Dec, [facility] [place] [facility] [address] [id number] [place] [address]- 1699 Oct, [facility] [place] [facility] [address] [id number] [place] [address]- 6073 Oct, [facility] [place] [facility] [address] [id number] [place] [address]- 1416 Oct, [facility] [place] [facility] [address] [id number] [place] [address]- 8559 Jul, IMMUNIZATIONS Vaccine Route Administration Date Status DEXAMETHASONE 4MG/ML (PER 1 MG) IM Intramuscular August 24, 2017 Administered DEPO MEDROL 80 MG/ML IM Intramuscular August 24, 2017 Administered SOCIAL HISTORY Never Assessed REASON FOR VISIT allergies- requests a steroid shot VegassKevin PLAN OF CARE Activity Details Follow Up prn Reason: VITAL SIGNS Height 57 in 2017-08-24 Weight 216.4 lbs 2017-08-24 Temperature 99.3 degrees Fahrenheit 2017-08-24 Heart Rate 88 bpm 2017-08-24 Respiratory Rate 22 2017-08-24 BMI 46.82 kg/m2 2017-08-24 Blood pressure systolic 130 mmHg 2017-08-24 Blood pressure diastolic 90 mmHg 2017-08-24 MEDICATIONS Medication Instructions Dosage Frequency Start Date End Date Duration Status Breo Ellipta 100-25 mcg/inh INHALE ONE PUFF BY MOUTH ONCE DAILY AT THE SAME TIME EACH DAY Active Myrbetriq 50 MG Orally Once a day 1 tablet 24h Active Estradiol 1MG Orally Once a day 1 tablet 24h Active Loxapine Succinate 25 MG Orally 4 times a day PRN 1 capsule 30 days Active Pravastatin Sodium 20 MG Orally Once a day 1 tablet 24h Active Levothyroxine Sodium 175 MCG Orally Once a day 1 tablet 24h 30 days Active Fluticasone Propionate 50 MCG/ACT Nasally Once a day 1 spray in each nostril 24h Jun, 30 day(s) Active Sertraline HCl 50 mg TAKE ONE TABLET BY MOUTH ONCE DAILY (TAKE WITH 100MG TABLET) Active Ambien 5 mg Orally Once a day 1 tablet at bedtime 24h Oct, 28 days Active Cetirizine HCl 10 mg Orally Once a day 1 tablet 24h Jun, Sep, 90 days Active Zoloft 50 MG Orally Once a day 1 tablet 24h Active Ventolin HFA 108 (90 Base) MCG/ACT Inhalation every 4 hrs 2 puffs as needed 4h Feb, Active Neurontin 600 mg Orally 2 times a day 1 tablet 12h 30 days Active Tizanidine HCl 4 MG Orally 3 times a day 1 1/2 tablets 8h Active Norvasc 10 mg Orally Once a day 1 tablet 24h Active Incontinence Supply Disposable SUPPLIES as directed Feb, 30 days Active Restasis 0.05 % instill 1 drop into affected eye(s) by ophthalmic route 2 times per day Oct, Active Januvia 100MG Orally Once a day 1 tablet 24h 30 days Active Plaquenil 200 mg Orally Once a day 1 tablet with food or milk 24h Active Lisinopril 2.5 MG Orally Once a day 1 tablet 24h Nov, Active Singulair 10 MG Orally Once a day 1 tablet in the evening 24h Jan, 30 day(s) Active Omeprazole 40 MG Orally Once a day 1 capsule 24h Active Invega Sustenna 234 MG/1.5ML Intramuscular Once a month, on the 10th of every month 1.5 ml Active Sumatriptan Succinate 50 mg Orally Twice a day 1 tablet as needed for migraine- may repeat in 2 hours if needed 12h May, 10 days Active Ibuprofen 800MG TAKE ONE TABLET BY MOUTH THREE TIMES DAILY NEEDED Active Zoloft 100 mg Orally Once a day 1 tablet 24h Mar, Active Spironolactone 50MG Orally Once a day 1 tablet 24h Active Cetirizine HCl Active HydrOXYzine HCl 50 mg TAKE ONE TO TWO TABLETS BY MOUTH EVERY 8 HOURS NEEDED FOR 30 DAYS Active Metformin HCl 1000MG Orally 2 times a day TAKE ONE TABLET BY MOUTH TWICE DAILY 12h 90 days Active RESULTS No Results PROCEDURES Procedure Date Ordered Result Body Site DEXAMETHASONE 4MG/ML (PER 1 MG) August 24, 2017 THER/PROPH/DIAG INJ, SC/IM August 24, 2017 DEPO MEDROL 80 MG/ML August 24, 2017 INSTRUCTIONS MEDICATIONS ADMINISTERED No Known Medications [...]
--- OUTSIDE RECORDS SUMMARY | 2018-09-02 13:49 | XMS REPORT ---
Author Author SOTO STRICKLAND Organization [facility] Address [address] [place] [address] Care Team Providers Care Stock Shaper Name Role Phone SOTO STRICKLAND Unavailable PROBLEMS Type Condition ICD9-CM Code SVW75-FY Code Onset Dates Condition Status SNOMED Code Problem OAB (overactive bladder) N32.81 Active 486171493 Problem Depression with anxiety F41.8 Active 912327176 Problem Other seasonal allergic rhinitis J30.2 Active 262408530 Problem Chronic obstructive pulmonary disease, unspecified COPD type J44.9 Active 85560072 Problem Tobacco abuse Z72.0 Active 977928226 Problem Morbid obesity due to excess calories E66.01 Active 156638100 Problem Dyslipidemia E78.5 Active 323485832 Problem Hypothyroidism (acquired) E03.9 Active 853296047 Problem Essential hypertension I10 Active 22931671 Problem Diabetic polyneuropathy associated with type 2 diabetes mellitus E11.42 Active 068435983 Problem Type 2 diabetes mellitus with diabetic neuropathic arthropathy, 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 Active 377860244 Problem Type 2 diabetes mellitus without complication, without long-term current use of insulin E11.9 Active 960235904 Problem Paranoid schizophrenia F20.0 Active 97179785 Problem Chronic pain syndrome G89.4 Active 779845399 Problem Migraine without aura and without status migrainosus, not intractable G43.009 Active 088025033 Problem Gastroesophageal reflux disease, esophagitis presence not specified K21.9 Active 910335865 Problem Seasonal allergic rhinitis due to pollen J30.1 Active 46357754 Problem COPD exacerbation J44.1 Active 105284836 Problem Seasonal allergic rhinitis due to other allergic trigger J30.89 Active 048775216 Problem Schizoaffective disorder, depressive type F25.1 Active 44531528 Problem History of lupus Z87.39 Active 423774114 Problem Gastroesophageal reflux disease without esophagitis K21.9 Active 714352848 Problem Menopausal syndrome (hot flashes) N95.1 Active 470937199 Problem Other allergic rhinitis J30.89 Active 090487935 Problem Primary insomnia F51.01 Active 4090221 Problem DM neuro manif type II E11.49 Active 99897536 ALLERGIES No Information ENCOUNTERS Encounter Location Date Diagnosis [place] [id number] [address] Dec, [place] [address] [place] [id number] [place] [address] 32758- 7809 Nov, [place] [address] [place] [id number] [place] [address] 86217- 8950 Nov, [place] [address] [place] [id number] [place] [address] 67629- 9077 Oct, Paranoid schizophrenia F20.0 [place] [id number] [address] Oct Chronic pain syndrome G89.4 and Schizoaffective disorder, depressive type F25.1 [place] [id number] [place] [address] 77592- 4236 Oct, Chronic pain syndrome G89.4 and Schizoaffective disorder, depressive type F25.1 [place] [id number] [place] [address] 68827- 6617 Oct, Type 2 diabetes mellitus without complication, without long- term current use of insulin E11.9 [place] [id number] [place] [address] 13903- 2734 Oct, Essential hypertension I10 and DM neuro manif type II E11.49 [place] [id number] [place] [address] 83180- 4194 Oct, [place] [address] [place] [id number] [place] [address] 55094- 9114 Oct, Schizoaffective disorder, depressive type F25.1 and BMI 45.0 -49.9, adult Z68.42 [place] [address] [place] [id number] [place] [address] 02315- 0180 Oct, [facility] [id number] [place] [address] 84202- 6673 Oct, Paranoid schizophrenia F20.0 [facility] [id number] [place] [address] 59295- 4604 Oct, Type 2 diabetes mellitus with diabetic neuropathic arthropathy, 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 ; Essential hypertension I10 ; Hypothyroidism (acquired) E03.9 ; Chronic obstructive pulmonary disease, unspecified COPD type J44.9 and Diabetic polyneuropathy associated with type 2 diabetes mellitus E11.42 [facility] [id number] [place] [address] 62033- 8964 Sep, Paranoid schizophrenia F20.0 [facility] [id number] [place] [address] 80744- 1674 Sep, Paranoid schizophrenia F20.0 and BMI 45.0-49.9, adult Z68.42 [facility] [id number] [place] [address] 99682- 4084 Sep, Schizoaffective disorder, depressive type F25.1 [facility] [id number] [place] [address] 34357- 5281 Sep, [facility] [id number] [place] [address] 07478- 1281 Sep, Paranoid schizophrenia F20.0 [facility] [id number] [place] [address] 55488- 1115 Sep, [facility] [id number] [place] [address] 19757- 9557 Sep, Hypothyroidism (acquired) E03.9 [facility] [id number] [place] [address] 73753- 1318 Sep, [facility] [id number] [place] [address] 76049- 9328 August, Schizoaffective disorder, depressive type F25.1 [facility] [id number] [place] [address] 61275- 3823 August, [facility] [address] 98086- 0399 August, [facility] [id number] [place] [address] 89636- 4831 August, [place] [address] 09032- 5107 August, Paranoid schizophrenia F20.0 [place] [address] [id number] [place] [address] 82851- 9582 August, History of lupus Z87.39 and Chronic pain syndrome G89.4 [place] [address] [place] [id number] [place] [address] 28201- 2726 August, [facility] [address] 49153 -3139 August, Seasonal allergic rhinitis, unspecified trigger J30.2 and BMI 45.0-49.9, adult Z68.42 [place] [address] [place] [id number] [place] [address] 48826- 4695 Jul, Schizoaffective disorder, depressive type F25.1 [place] [address] [id number] [place] [address] 84726- 5477 Jul, [place] [address] [id number] [place] [address] 18206- 1957 Jul, Hypothyroidism (acquired) E03.9 [place] [address] [id number] [place] [address] 62979- 8740 Jul, Chronic obstructive pulmonary disease, unspecified COPD type J44.9 and Type 2 diabetes mellitus without complication, without long-term current use of insulin E11.9 [place] [address] [id number] [place] [address] 93995- 8912 Jul, Paranoid schizophrenia F20.0 [place] [address] [place] [id number] [place] [address] 21970- 8761 Jun, Hypothyroidism (acquired) E03.9 and Seasonal allergic rhinitis due to pollen J30.1 [facility] [id number] [place] [address] 96323 -3466 Jun, Shortness of breath at rest R06.02 ; COPD exacerbation J44.1 and BMI 45.0-49.9, adult Z68.42 [facility] [address] 77043- 7156 Jun, [facility] [address] 44938- 0493 Jun, Paranoid schizophrenia F20.0 ; Depression with anxiety F41.8 and BMI 45.0-49.9, adult Z68.42 [facility] [address] 62416- 5026 20 Jun, 2017 Schizoaffective disorder, depressive type F25.1 [facility] [address] [id number] Jun, Dental caries K02.9 [place] [address] 34060- 7677 Jun, Paranoid schizophrenia F20.0 [facility] [address] [id number] [place] [address] 41521- 7274 May, Migraine without aura and without status migrainosus, not intractable G43.009 ; DM neuro manif type II E11.49 and Type 2 diabetes mellitus without complication, without long-term current use of insulin E11.9 [facility] [address] 16301- 2996 May, Migraine without aura and without status migrainosus, not intractable G43.009 [facility] [address] [id number] [place] [address] 24762- 1792 May, Depression with anxiety F41.8 [facility] [address] [place] [id number] [place] [address] [id number] May, [facility] [id number] [place] [address] 12224- 3536 May, [facility] [id number] [place] [address] 87901- 8295 May, [facility] [address] [id number] [place] [address] 26318- 4485 May, Hypothyroidism (acquired) E03.9 [place] [address] [id number] [place] [address] 68811- 6950 May, Paranoid schizophrenia F20.0 [place] [address] 77645- 1767 May, Type 2 diabetes mellitus without complication, [...] N32.81 and Controlled substance agreement signed Z79.899 [place] [address] [id number] [place] [address] 56045- 0783 May, Controlled substance agreement signed Z79.899 [place] [address] [place] [id number] [place] [address] 30160- 9510 Apr, [facility] [address] [place] [id number] [place] [address] [id number] Apr, Dental examination Z01.20 [place] [address] [place] [id number] [place] [address] 25829- 2532 Apr, Paranoid schizophrenia F20.0 [facility] [id number] [place] [address] 47310- 9035 Apr, Hypertension, unspecified type I10 [facility] [address] [id number] [place] [address] 67068- 0361 Apr, Paranoid schizophrenia F20.0 [facility] [address] [id number] [place] [address] 69283- 4521 Apr, [facility] [address] [id number] [place] [address] 99026- 1495 Apr, Tobacco abuse Z72.0 [facility] [address] 79141- 6348 Apr, [facility] [address] [id number] [place] [address] 31828- 6357 Mar, [facility] [address] [id number] [place] [address] 57472- 5943 Mar, Paranoid schizophrenia F20.0 and BMI 45.0-49.9, adult Z68.42 [facility] [address] [id number] [place] [address] 11258- 3937 Mar, Schizoaffective disorder, depressive type F25.1 [facility] [address] [id number] [place] [address] 44561- 9623 Mar, [facility] [address] [id number] [place] [address] 15420- 0846 Mar, Hypothyroidism, unspecified type E03.9 [facility] [address] [id number] [place] [address] 11908- 2475 Mar, Schizoaffective disorder, depressive type F25.[address] [facility] [id number] [place] [address] 95213 -2650 Feb, Gastroenteritis K52.9 and BMI 45.0-49.9, adult Z68.42 [facility] [address] [id number] [place] [address] 31566- 3361 Feb, [place] [address] 54667- 3633 Feb, [place] [address] 06944- 0141 Feb, [place] [address] 43719- 3658 Feb, [place] [address] 78896- 3407 Feb, Paranoid schizophrenia F20.[address] 10751- 4484 Feb, Gastroesophageal reflux disease without esophagitis K21.9 ; Other seasonal allergic rhinitis J30.2 ; Other allergic rhinitis J30.89 ; Tobacco abuse Z72.0 and BMI 40.0-44.9, adult Z68.[address] 19368- 3818 Feb, Onychomycosis B35.1 ; Callus of foot L84 and DM neuro manif type II E11.[address] 00242- 4614 Jan, Chronic allergic rhinitis J30.[address] 21322- 7502 Jan, [place] [address] 60265- 0523 Jan, Schizoaffective disorder, depressive type F25.1 [place] [address] 23189- 8373 Jan, [facility] [address] 14719 -8655 Jan, Sore throat J02.9 and Seasonal allergic rhinitis due to other allergic trigger J30.89 [place] [address] [place] [address]- 2588 Jan, [facility] [address] [id number] [place] [address] 35463- 6254 Jan, [facility] [address] [id number] [place] [address] 47640 -0307 Jan, Chronic allergic rhinitis J30.9 [facility] [address] [place] [id number] [place] [address] 27034- 8531 Dec, Paranoid schizophrenia F20.0 ; Primary insomnia F51.01 and Schizoaffective disorder, depressive type F25.1 [facility] [address] 17432- 4155 Dec, Chronic pain syndrome G89.4 ; Cervicalgia of occipito- atlanto-axial region M54.2 ; Menopausal syndrome (hot flashes) N95.1 and Encounter for immunization Z23 [facility] [address] [place] [id number] [place] [address] 87478- 4148 14 Dec, 2016 [facility] [address] [id number] [place] [address] 87286- 4764 Dec, [facility] [address] [id number] [place] [address] 23237- 7476 Dec, Paranoid schizophrenia F20.0 [facility] [address] [id number] [place] [address] 46532- 2550 Dec, Schizoaffective disorder, depressive type F25.1 [facility] [address] [id number] [place] [address] 68526- 2147 Nov, Hypothyroidism, unspecified type E03.9 [facility] [address] [id number] [place] [address] 09030 -4006 Nov, Acute seasonal allergic rhinitis due to other allergen J30.89 [facility] [address] [id number] [place] [address] 22745- 3742 Nov, [facility] [address] [place] [address] [place] [address]- 3463 Nov, Hypothyroidism, unspecified type E03.9 and Other elevated white blood cell (WBC) count D72.828 [place] [address] [place] [id number] [place] [address] 42829- 9673 Nov, Schizoaffective disorder, depressive type F25.1 [place] [address] [place] [id number] [place] [address] 47394- 1599 Nov, Paranoid schizophrenia F20.0 [place] [address] [place] [id number] [place] [address] 79457- 5384 Nov, Type 2 diabetes mellitus without complication, without long- term current use of insulin E11.9 ; Morbid obesity due to excess calories E66.01 and Chronic pain syndrome G89.4 [place] [address] [place] [id number] [place] [address] 70765- 6205 Oct, Paranoid schizophrenia F20.0 [place] [address] [place] [id number] [place] [address] 79174- 6248 Oct, [place] [address] [place] [id number] [place] [address] 41426- 3854 Oct, Schizoaffective disorder, depressive type F25.1 [place] [address] [place] [id number] [place] [address] 52765- 8512 Oct, Hypothyroidism, unspecified type E03.9 and Other elevated white blood cell (WBC) count D72.828 [place] [address] [place] [id number] [place] [address] 05656- 7993 Oct, Morbid obesity due to excess calories E66.01 ; Chronic obstructive pulmonary disease, unspecified COPD type J44.9 ; History of lupus Z87.39 ; Hypothyroidism, unspecified type E03.9 ; Gastroesophageal reflux disease without esophagitis K21.9 ; Primary insomnia F51.01 and Chronic pain syndrome G89.4 [place] [address] [place] [address] 54011- 3943 Sep, [facility] [address] [address]- 8730 Sep, [facility] [id number] [place] [address] 12953- 5284 Sep, [facility] [address] [id number] [place] [address] 90290- 3884 Sep, Paranoid schizophrenia F20.0 [facility] [address] [id number] [place] [address] 66471- 0352 Sep, [facility] [id number] [place] [address] 10301- 6753 Sep, Paranoid schizophrenia F20.0 [facility] [id number] [place] [address] 86233- 6629 Sep, [facility] [id number] [place] [address] 36585- 2023 August, Paranoid schizophrenia F20.0 [facility] [address] [place] [address] 12663- 5523 Jul, [facility] [id number] [place] [address] 77278- 8359 Jul, Type 2 diabetes mellitus without complication, without long- term current use of insulin E11.9 ; Morbid obesity due to excess calories E66.01 ; Depression with anxiety F41.8 ; Hypothyroidism, unspecified type E03.9 ; Seasonal allergic rhinitis due to other allergic trigger J30.89 ; Pain, dental K08.89 and Gastroesophageal reflux disease without esophagitis K21.9 [facility] [address] [id number] Jul, Dental examination Z01.20 [facility] [id number] [place] [address] 20369- 8327 07 Jul, 2016 Paranoid schizophrenia F20.0 [facility] [address] [place] [address] 08267- 0666 Jun, Paranoid schizophrenia F20.0 and Depression with anxiety F41.8 [place] [address] [place] [id number] [place] [address] 21770- 5333 10 Jun, 2016 Paranoid schizophrenia F20.0 and Depression with anxiety F41.8 [place] [id number] [place] [id number] [place] [address] 80508- 2032 09 Jun, [address] 72107- 2456 Jun, [facility] [place] [id number] [place] [address] 63912 -7159 Jun, Seasonal allergic rhinitis due to other allergic trigger J30.89 [facility] [place] [id number] [place] [address] 65868 -3266 May, Sore throat J02.9 ; Other viral agents as the cause of diseases classified elsewhere B97.89 and Acute upper respiratory infection, unspecified J06.9 [place] [address] [id number] [place] [address] 50885- 5079 May, Paranoid schizophrenia F20.0 and Depression with anxiety F41.8 [place] [id number] [place] [address] 00005- 4659 Apr, Other seasonal allergic rhinitis J30.2 [place] [id number] [place] [address] 44588- 8555 Apr, Paranoid schizophrenia F20.0 and Depression with anxiety F41.8 [facility] [place] [id number] [place] [address] 29207 -9057 Apr, Bronchitis J40 and Sore throat J02.[address] 50282- 2372 Apr, Type 2 diabetes mellitus without complication, without long- term current use of insulin E11.9 [facility] [place] [id number] [place] [address] 56565 -1254 Apr, Bronchitis J40 [place] [id number] [place] [address] 85602- 8695 Apr, [place] [id number] [place] [id number] [place] [address] 78916- 4691 Apr, [facility] [id number] [place] [address] 58757- 7940 Mar, Type 2 diabetes mellitus without complication, [...] R60.9 and Other seasonal allergic rhinitis J30.2 [place] [address] [id number] [place] [address] 14117- 2382 Mar, Paranoid schizophrenia F20.0 and Depression with anxiety F41.8 [place] [address] [id number] [place] [address] 55872- 7025 Feb, [place] [address] [id number] [place] [address] 36754- 0179 Feb, [place] [address] [id number] [place] [address] 76898- 3691 Feb, [place] [address] [place] [id number] [place] [address] 84134- 9011 Feb, [place] [address] [id number] [place] [address] 67090- 7654 Feb, Type 2 diabetes mellitus without complication, without long- term current use of insulin E11.9 ; ARIAS on CPAP G47.33 and Preoperative evaluation to rule out surgical contraindication Z01.818 [facility] [address] [place] [address] 52735- 5621 Feb, Paranoid schizophrenia F20.0 and Depression with anxiety F41.8 [facility] [address] [facility] [id number] [address]- 2102 Jan, [facility] [address] [id number] [place] [address] 46066- 4397 Jan, Paranoid schizophrenia F20.0 and Depression with anxiety F41.8 [facility] [address] [id number] [place] [address] 27090- 0739 17 Jan, 2016 [facility] [id number] [place] [address] 78953- 6989 14 Jan, 2016 Muscle strain T14.8 [facility] [id number] [place] [address] 59598- 4376 10 Jan, 2016 Paranoid schizophrenia F20.0 [facility] [id number] [place] [address] 81385- 0065 Jan, [facility] [id number] [place] [address] 49606- 0180 Jan, Paranoid schizophrenia F20.0 and Depression with anxiety F41.8 [facility] [id number] [place] [address] 59470- 8583 Jan, [facility] [id number] [place] [address] 85146- 7793 Jan, [facility] [id number] [address]- 7050 28 Dec, 2015 [facility] [id number] [place] [address] 18247- 6715 23 Dec, 2015 Paranoid schizophrenia F20.0 [facility] [id number] [address]- 6955 16 Dec, 2015 Paranoid schizophrenia F20.0 and Depression with anxiety F41.8 [facility] [id number] [address]- 5474 31 Nov, 2015 [facility] [id number] [place] [address] 00780- 4266 Nov, Paranoid schizophrenia F20.0 [place] [address] [id number] [place] [address] 01640- 8551 Nov, Paranoid schizophrenia F20.0 and Depression with anxiety F41.8 [place] [address] [id number] [place] [address] 54064- 6006 Nov, Type 2 diabetes mellitus without complication, without long- term current use of insulin E11.9 ; Paranoid schizophrenia F20.0 ; Chronic obstructive pulmonary disease, unspecified COPD type J44.9 ; Morbid obesity due to excess calories E66.01 and Parkinsonian tremor G20 [place] [id number] [place] [address] [id number] Nov, [place] [id number] [place] [address] [phone] Oct, Paranoid schizophrenia F20.0 [place] [id number] [place] [address] [phone] Oct, Paranoid schizophrenia F20.0 [place] [id number] [place] [address] [id number] Oct, Paranoid schizophrenia F20.0 and Depression with anxiety F41.8 [facility] [id number] [place] [address] 74967- 9412 Oct, [facility] [id number] [place] [address] 17752- 1361 Oct, Paranoid schizophrenia F20.0 and Depression with anxiety F41.8 [facility] [facility] [id number] [place] [address] 29096- 6917 Oct, Nasal sore J34.89 [facility] [id number] [place] [address] 67356- 2960 Oct, Type 2 diabetes mellitus without complication, without long- term current use of insulin E11.9 ; Depression with anxiety F41.8 ; Hypothyroidism, unspecified type E03.9 and History of lupus Z87.39 [facility] [address] [address] Oct, [facility] [id number] [place] [address] 74593- 8420 Oct, Type 2 diabetes mellitus without complication, [...] edema R60.9 and History of lupus Z87.39 [facility] [address] [address] 2957 Feb, [facility] [id number] [place] [address] [id number]- 2046 Jan, [facility] [id number] [place] [address] 16446- 1175 Jan, [facility] [id number] [id number] 5[address] Jan, [facility] [address] [place] [address] Dec, [facility] [id number] [place] [address] 35720- 2538 Nov, [facility] [id number] [address] 6923 Nov, [facility] [id number] [place] [address] 34256- 9533 Oct, [facility] [address] [address]- 7321 Oct, [facility] [address] [id number] [place] [address] 9392 17 Oct, [address] [facility] [address] [facility] [id number] [place] [address]- 4726 Sep, Allergic rhinitis 477.9 [facility] [address] [facility] [id number] [place] [address]- 9656 11 Sep, 2014 Rhinitis, allergic 477.9 [facility] [address] [facility] [id number] [place] [address]- 5855 Sep, Rhinitis, allergic 477.9 [facility] [address] [facility] [id number] [place] [address]- 0932 Sep, [facility] [address] [facility] [id number] [place] [address]- 7558 August, [facility] [address] [id number] [place] [address] 8369 August, [facility] [address] [facility] [id number] [place] [address]- 4006 August, [facility] [address] [id number] [place] [address]- 2869 Jul, [facility] [address] [id number] [place] [address]- 9395 Jul, [facility] [address] [id number] [place] [address]- 5863 Jul, [facility] [place] [facility] [address] [facility] [id number] [place] [address]- 4997 16 Jun, 2014 [facility] [place] [facility] [address] [facility] [id number] [place] [address]- 7719 16 Jun, 2014 [facility] [place] [facility] [address] [facility] [id number] [place] [address]- 6037 Jun, [facility] [place] [facility] [address] [id number] [place] [address]- 0008 Jun, [facility] [place] [facility] [address] [facility] [id number] [place] [address]- 9122 11 Jun, 2014 [facility] [place] [facility] [address] [id number] [place] [address]- 8844 Jun, 2014 [facility] [place] [facility] [address] [id number] [place] [address]- 1866 Jun, 2014 [facility] [place] [facility] [address] [id number] [place] [address]- 0992 Jun, 2014 [facility] [place] [facility] [address] [id number] [place] [address]- 2835 May, 2014 [facility] [place] [facility] [address] [id number] [place] [address]- 8166 May, 2014 [facility] [place] [facility] [address] [facility] [id number] [place] [address]- 3619 May, 2014 [facility] [place] [facility] [address] [id number] [place] [address]- 0733 May, 2014 [facility] [place] [facility] [address] [id number] [place] [address]- 2467 Apr, [facility] [place] [facility] [address] [id number] [place] [address]- 6724 Mar, [facility] [place] [facility] [address] [facility] [id number] [place] [address]- 6703 Mar, [facility] [place] [facility] [address] [id number] [place] [address]- 1963 Mar, [facility] [place] [facility] [address] [id number] [place] [address]- 7676 Mar, [facility] [place] [facility] [address] [id number] [place] [address]- 6006 Mar, [facility] [place] [facility] [address] [id number] [place] [address]- 8476 Mar, [facility] [place] [facility] [address] [id number] [place] [address]- 3222 Mar, [facility] [place] [facility] [address] [id number] [place] [address]- 4735 Mar, [facility] [place] [facility] [address] [id number] [place] [address]- 6056 Mar, [facility] [place] [facility] [address] [id number] [place] [address]- 4663 Feb, [facility] [place] [facility] [address] [id number] [place] [address]- 6745 Feb, [facility] [place] [facility] [address] [id number] [place] [address]- 7494 Feb, [facility] [place] [facility] [address] [id number] [place] [address]- 7140 Feb, [facility] [place] [facility] [address] [id number] [place] [address]- 5562 Feb, [facility] [place] [facility] [address] [id number] [place] [address]- 8226 Feb, [facility] [place] [facility] [address] [id number] [place] [address]- 5889 Feb, [facility] [place] [facility] [address] [id number] [place] [address]- 5401 Feb, [facility] [place] [facility] [address] [id number] [place] [address]- 1563 Jan, [facility] [place] [facility] [address] [id number] [place] [address]- 3253 Jan, [facility] [place] [facility] [address] [id number] [place] [address]- 9457 16 Jan, 2014 [facility] [place] [facility] [address] [id number] [place] [address]- 0142 16 Jan, 2014 [facility] [place] [facility] [address] [id number] [place] [address]- 3566 15 Jan, 2014 [facility] [place] [facility] [address] [id number] [place] [address]- 5994 15 Jan, 2014 [facility] [place] [facility] [address] [id number] [place] [address]- 2404 14 Jan, 2014 [facility] [place] [facility] [address] [id number] [place] [address]- 0510 14 Jan, 2014 [facility] [place] [facility] [address] [id number] [place] [address]- 9098 14 Jan, 2014 [facility] [place] [facility] [address] [id number] [place] [address]- 2840 14 Jan, 2014 [facility] [place] [facility] [address] [id number] [place] [address]- 5162 18 Dec, 2013 [facility] [place] [facility] [address] [id number] [place] [address]- 5972 18 Dec, 2013 [facility] [place] [facility] [address] [id number] [place] [address]- 0110 10 Dec, 2013 [facility] [place] [facility] [address] [id number] [place] [address]- 7649 10 Dec, 2013 [facility] [place] [facility] [address] [id number] [place] [address]- 5745 Nov, [facility] [place] [facility] [address] [id number] [place] [address]- 2861 Nov, [facility] [place] [facility] [address] [id number] [place] [address]- 3466 Nov, [facility] [place] [facility] [address] [id number] [place] [address]- 2828 Nov, [facility] [place] [facility] [address] [id number] [place] [address]- 0606 Nov, [facility] [place] [facility] [address] [id number] [place] [address]- 8881 Oct, [facility] [place] [facility] [address] [id number] [place] [address]- 2197 Oct, [facility] [place] [facility] [address] [id number] [place] [address]- 8117 Oct, [facility] [place] [facility] [address] [id number] [place] [address]- 6727 Oct, [facility] [place] [facility] [address] [id number] [place] [address]- 2399 Sep, [facility] [place] [facility] [address] [id number] [place] [address]- 1291 Sep, [facility] [place] [facility] [address] [id number] [place] [address]- 6291 Sep, [facility] [place] [facility] [address] [id number] [place] [address]- 3564 Sep, [facility] [place] [facility] [address] [id number] [place] [address]- 5048 Sep, [facility] [place] [facility] [address] [id number] [place] [address]- 3424 Sep, [facility] [place] [facility] [address] [id number] [place] [address]- 4664 Sep, [facility] [place] [facility] [address] [id number] [place] [address]- 9957 Sep, [facility] [place] [facility] [address] [id number] [place] [address]- 9495 August, [facility] [place] [facility] [address] [id number] [place] [address]- 8719 August, [facility] [place] [facility] [address] [id number] [place] [address]- 6553 August, [facility] [place] [facility] [address] [id number] [place] [address]- 7694 August, [facility] [place] [facility] [address] [id number] [place] [address]- 8467 August, [facility] [place] [facility] [address] [id number] [place] [address]- 8316 August, [facility] [place] [facility] [address] [id number] [place] [address]- 1393 August, [facility] [place] [facility] [address] [id number] [place] [address]- 2461 Jul, [facility] [place] [facility] [address] [id number] [place] [address]- 8600 Jul, [facility] [place] [facility] [address] [id number] [place] [address]- 4356 Jul, [facility] [place] [facility] [address] [id number] [place] [address]- 7025 Jul, [facility] [place] [facility] [address] [id number] [place] [address]- 1330 Jul, [facility] [place] [facility] [address] [id number] [place] [address]- 0401 Jul, [facility] [place] [facility] [address] [id number] [place] [address]- 9194 Jul, [facility] [place] [facility] [address] [id number] [place] [address]- 0510 Jul, [facility] [place] [facility] [address] [id number] [place] [address]- 7671 Jul, [facility] [place] [facility] [address] [id number] [place] [address]- 1947 Jul, [facility] [place] [facility] [address] [id number] [place] [address]- 6534 Jul, [facility] [place] [facility] [address] [id number] [place] [address]556 Jul, [facility] [place] [facility] [address] [id number] [place] [address]- 0290 Jun, [facility] [place] [facility] [address] [id number] [place] 5891 Jun, [facility] [place] [facility] [address] [id number] [place] [address]- 5099 Jun, [facility] [place] [facility] [address] [id number] [place] [address]- 0885 Jun, [facility] [place] [facility] [address] [id number] [place] [address]- 3375 Jun, [facility] [place] [facility] [address] [id number] [place] [address]- 5884 May, [facility] [place] [facility] [address] [id number] [place] [address]- 4263 May, [facility] [place] [facility] [address] [id number] [place] [address]- 0168 May, [facility] [place] [facility] [address] [id number] [place] [address]- 9042 May, [facility] [place] [facility] [address] [id number] [place] [address]- 0283 May, [facility] [place] [facility] [address] [id number] [place] [address]- 5214 May, [facility] [place] [facility] [address] [facility] [id number] [place] [address]- 6116 May, [facility] [place] [facility] [address] [facility] [id number] [place] [address]- 8001 May, [facility] [place] [facility] [address] [id number] [place] [address]- 1338 Mar, [facility] [place] [facility] [address] [id number] [place] [address]- 8318 Mar, [facility] [place] [facility] [address] [id number] [place] [address]- 7329 Mar, [facility] [place] [facility] [address] [id number] [place] [address]- 2576 Mar, [facility] [place] [facility] [address] [facility] [id number] [place] [address]- 0056 Mar, [facility] [place] [facility] [address] [id number] [place] [address]- 5821 Mar, [facility] [place] [facility] [address] [id number] [place] [address]- 6186 Feb, [facility] [place] [facility] [address] [id number] [place] [address]- 2439 Feb, [facility] [place] [facility] [address] [id number] [place] [address]- 0885 Jan, [facility] [place] [facility] [address] [id number] [place] 6654 Jan, [facility] [place] [facility] [address] [id number] [place] [address]- 4700 Jan, [facility] [place] [facility] [address] [id number] [place] [address]- 2013 Jan, [facility] [place] [facility] [address] [id number] [place] [address]- 9907 Jan, [facility] [place] [facility] [address] [id number] [place] [address]- 6666 Jan, [facility] [place] [facility] [address] [id number] [place] [address]- 2024 Jan, [facility] [place] [facility] [address] [id number] [place] [address]- 9658 Jan, [facility] [place] [facility] [address] [id number] [place] [address]- 7317 08 Jan, 2013 [facility] [place] [facility] [address] [id number] [place] [address]- 6408 Jan, [facility] [place] [facility] [address] [id number] [place] [address]- 8585 16 Dec, 2012 [facility] [place] [facility] [address] [id number] [place] [address]- 5964 Nov, [facility] [place] [facility] [address] [id number] [place] [address]- 2546 Nov, [facility] [address] [facility] [id number] [place] [address]- 1336 Nov, [facility] [address] [facility] [id number] [place] [address]- 0156 Oct, [facility] [address] [place] [address]- 3796 Oct, [facility] [address] [facility] [id number] [place] [address]- 1380 August, [facility] [address] [address]- 3191 Apr, [facility] [address] [id number] [place] [address]- 9351 Apr, [facility] [address] [address]- 3364 Feb, [facility] [address] [address]- 3715 Feb, [facility] [address] [place] 2633 Dec, [facility] [address] [address]- 3696 Dec, [facility] [address] [id number] [address]- 5578 Oct, [facility] [address] [id number] [address]- 4400 Oct, [facility] [address] [id number] [address]- 6506 Oct, [facility] [address] [id number] [place] [address]- 9154 Jul, IMMUNIZATIONS No Known Immunizations SOCIAL HISTORY Never Assessed REASON FOR VISIT Medication refill request PLAN OF CARE VITAL SIGNS MEDICATIONS Medication Instructions Dosage Frequency Start Date End Date Duration Status Ibuprofen 800MG TAKE ONE TABLET BY MOUTH [...]
--- OUTSIDE RECORDS SUMMARY | 2018-09-02 13:50 | XMS REPORT ---
Author Author SOTO STRICKLAND Organization [facility] Address [address] [place] [address] Care Team Providers Care Project Designer Name Role Phone SOTO STRICKLAND Unavailable PROBLEMS Type Condition ICD9-CM Code PIV22-MN Code Onset Dates Condition Status SNOMED Code Problem OAB (overactive bladder) N32.81 Active 417454944 Problem Depression with anxiety F41.8 Active 945377665 Problem Other seasonal allergic rhinitis J30.2 Active 383083692 Problem Chronic obstructive pulmonary disease, unspecified COPD type J44.9 Active 13733159 Problem Tobacco abuse Z72.0 Active 869456375 Problem Morbid obesity due to excess calories E66.01 Active 453734404 Problem Dyslipidemia E78.5 Active 652920489 Problem Hypothyroidism (acquired) E03.9 Active 489265556 Problem Essential hypertension I10 Active 53247878 Problem Diabetic polyneuropathy associated with type 2 diabetes mellitus E11.42 Active 851044166 Problem Type 2 diabetes mellitus with diabetic neuropathic arthropathy, 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 Active 322082011 Problem Type 2 diabetes mellitus without complication, without long-term current use of insulin E11.9 Active 362861940 Problem Paranoid schizophrenia F20.0 Active 30275053 Problem Chronic pain syndrome G89.4 Active 360041876 Problem Migraine without aura and without status migrainosus, not intractable G43.009 Active 267818288 Problem Gastroesophageal reflux disease, esophagitis presence not specified K21.9 Active 461282121 Problem Seasonal allergic rhinitis due to pollen J30.1 Active 55912532 Problem COPD exacerbation J44.1 Active 693164219 Problem Seasonal allergic rhinitis due to other allergic trigger J30.89 Active 049666122 Problem Schizoaffective disorder, depressive type F25.1 Active 25412607 Problem History of lupus Z87.39 Active 019931784 Problem Gastroesophageal reflux disease without esophagitis K21.9 Active 884216448 Problem Menopausal syndrome (hot flashes) N95.1 Active 556186808 Problem Other allergic rhinitis J30.89 Active 793032665 Problem Primary insomnia F51.01 Active 5766247 Problem DM neuro manif type II E11.49 Active 17715058 ALLERGIES Substance Reaction Event Type Date Status Sulfamethoxazole-Trimethoprim Unknown Drug Allergy Jun, Active Penicillin V Potassium Unknown Drug Allergy Jun, Active ENCOUNTERS Encounter Location Date Diagnosis [place] [id number] [place] [address] 69180- 5161 Dec, [place] [address] [place] [id number] [place] [address] 26581- 9967 Nov, [place] [address] [place] [id number] [place] [address] 27794- 8902 Nov, [place] [address] [place] [id number] [place] [address] 30840- 1126 Oct, Paranoid schizophrenia F20.0 [place] [id number] [address] Oct Chronic pain syndrome G89.4 and Schizoaffective disorder, depressive type F25.1 [place] [address] [place] [id number] [place] [address] 68146- 9070 Oct, Chronic pain syndrome G89.4 and Schizoaffective disorder, depressive type F25.1 [place] [address] [place] [address] 88119- 8171 Oct, Type 2 diabetes mellitus without complication, without long- term current use of insulin E11.9 [place] [address] [place] [address] 88682- 2723 12 Oct, 2017 Essential hypertension I10 and DM neuro manif type II E11.49 [place] [address] [place] [id number] [place] [address] 92236- 9327 Oct, [place] [address] [place] [id number] [place] [address] 02067- 7606 Oct, Schizoaffective disorder, depressive type F25.1 and BMI 45.0 -49.9, adult Z68.42 [facility] [address] [place] [id number] [place] [address] 95937- 4944 Oct, [facility] [address] [place] [id number] [place] [address] 60237- 3751 Oct, Paranoid schizophrenia F20.0 [facility] [address] [place] [id number] [place] [address] 35417- 4421 Oct, Type 2 diabetes mellitus with diabetic neuropathic arthropathy, 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 ; Essential hypertension I10 ; Hypothyroidism (acquired) E03.9 ; Chronic obstructive pulmonary disease, unspecified COPD type J44.9 and Diabetic polyneuropathy associated with type 2 diabetes mellitus E11.42 [facility] [address] [place] [id number] [place] [address] 23571- 2397 Sep, Paranoid schizophrenia F20.0 [facility] [address] [place] [id number] [place] [address] 87309- 1834 Sep, Paranoid schizophrenia F20.0 and BMI 45.0-49.9, adult Z68.42 [facility] [address] [place] [id number] [place] [address] 43321- 2612 Sep, Schizoaffective disorder, depressive type F25.1 [facility] [address] [place] [id number] [place] [address] 33677- 1382 Sep, [facility] [address] [place] [id number] [place] [address] 76101- 8621 Sep, Paranoid schizophrenia F20.0 [facility] [address] [place] [id number] [place] [address] 13333- 7313 Sep, [facility] [address] [place] [id number] [place] [address] 42075- 7141 Sep, Hypothyroidism (acquired) E03.9 [facility] [address] [place] [id number] [place] [address] 21429- 5098 05 Sep, 2017 [facility] [address] [place] [address]- 4981 August, Schizoaffective disorder, depressive type F25.1 [place] [address] 75933- 8643 August, [facility] [address] 62595- 0878 August, [place] [address] 11819- 3060 August, [place] [address] 90502- 4782 August, Paranoid schizophrenia F20.0 [place] [address] 38539- 5110 August, History of lupus Z87.39 and Chronic pain syndrome G89.4 [place] [address] 88183- 8960 August, [facility] [address] 77972 -9655 August, Seasonal allergic rhinitis, unspecified trigger J30.2 and BMI 45.0-49.9, adult Z68.42 [place] [address] 88149- 3252 Jul, Schizoaffective disorder, depressive type F25.1 [place] [address] 63275- 4790 Jul, [place] [address] 55683- 2066 Jul, Hypothyroidism (acquired) E03.9 [place] [address] 69440- 9871 Jul, Chronic obstructive pulmonary disease, unspecified COPD type J44.9 and Type 2 diabetes mellitus without complication, without long-term current use of insulin E11.9 [place] [address] 09943- 3447 Jul, Paranoid schizophrenia F20.0 [facility] [address] [place] [id number] [place] [address] 87508- 7772 Jun, Hypothyroidism (acquired) E03.9 and Seasonal allergic rhinitis due to pollen J30.1 [facility] [address] 61079 -0371 Jun, Shortness of breath at rest R06.02 ; COPD exacerbation J44.1 and BMI 45.0-49.9, adult Z68.42 [facility] [address] 57422- 9789 Jun, [facility] [address] 24286- 8926 Jun, Paranoid schizophrenia F20.0 ; Depression with anxiety F41.8 and BMI 45.0-49.9, adult Z68.42 [facility] [address] 78694- 3359 Jun, Schizoaffective disorder, depressive type F25.1 [facility] [address] [id number] Jun, Dental caries K02.9 [place] [address] 28447- 4071 Jun, Paranoid schizophrenia F20.0 [facility] [address] [place] [id number] [place] [address] 71964- 8401 May, Migraine without aura and without status migrainosus, not intractable G43.009 ; DM neuro manif type II E11.49 and Type 2 diabetes mellitus without complication, without long-term current use of insulin E11.9 [facility] [address] [place] [id number] [place] [address] 56998- 1711 May, Migraine without aura and without status migrainosus, not intractable G43.009 [facility] [address] 28353- 1696 May, Depression with anxiety F41.8 [facility] [address] [place] [address] [id number] May, [facility] [address] [place] [id number] [place] [address] 69004- 8473 May, [facility] [address] [place] [id number] [place] [address] 80344- 5075 May, [facility] [address] [place] [id number] [place] [address] 99231- 6880 May, Hypothyroidism (acquired) E03.9 [place] [address] 50126- 5664 May, Paranoid schizophrenia F20.0 [place] [address] 98339- 4420 May, Type 2 diabetes mellitus without complication, [...] N32.81 and Controlled substance agreement signed Z79.899 [facility] [address] [place] [id number] [place] [address] 96926- 3664 May, Controlled substance agreement signed Z79.899 [place] [address] [place] [id number] [place] [address] 77204- 4981 Apr, [facility] [address] [place] [id number] [place] [address] [id number] Apr, Dental examination Z01.20 [place] [address] [place] [id number] [place] [address] 62789- 4989 Apr, Paranoid schizophrenia F20.0 [facility] [address] [place] [id number] [place] [address] 42271- 8646 Apr, Hypertension, unspecified type I10 [facility] [address] [place] [id number] [place] [address] 06722- 8982 Apr, Paranoid schizophrenia F20.0 [facility] [address] [place] [id number] [place] [address] 88160- 0490 Apr, [facility] [address] [place] [id number] [place] [address] 28168- 7469 Apr, Tobacco abuse Z72.0 [facility] [address] [place] [id number] [place] [address] 58639- 4120 Apr, [place] [address] [place] [id number] [place] [address] 69635- 9647 Mar, [facility] [address] [place] [id number] [place] [address] 52517- 3741 Mar, Paranoid schizophrenia F20.0 and BMI 45.0-49.9, adult Z68.42 [facility] [address] [place] [id number] [place] [address] 92870- 9475 Mar, Schizoaffective disorder, depressive type F25.1 [place] [address] [place] [id number] [place] [address] 81985- 7398 Mar, [facility] [address] [place] [id number] [place] [address] 34638- 3348 Mar, Hypothyroidism, unspecified type E03.9 [facility] [address] [place] [id number] [place] [address] 64732- 1868 Mar, Schizoaffective disorder, depressive type F25.1 [facility] [address] [place] [address] 16943 -1874 Feb, Gastroenteritis K52.9 and BMI 45.0-49.9, adult Z68.42 [place] [address] [address]- 8954 Feb, [place] [address] [place] [id number] [place] [address] 91509- 8088 Feb, [place] [address] [place] [id number] [place] [address] 21180- 1003 Feb, [place] [address] [place] [id number] [place] [address] 12925- 2275 Feb, [place] [address] [place] [id number] [place] [address] 87313- 2305 Feb, Paranoid schizophrenia F20.0 [place] [address] [place] [id number] [place] [address] 30723- 8947 Feb, Gastroesophageal reflux disease without esophagitis K21.9 ; Other seasonal allergic rhinitis J30.2 ; Other allergic rhinitis J30.89 ; Tobacco abuse Z72.0 and BMI 40.0-44.9, adult Z68.41 [place] [address] [place] [id number] [place] [address] 27535- 8669 Feb, Onychomycosis B35.1 ; Callus of foot L84 and DM neuro manif type II E11.49 [place] [address] [place] [id number] [place] [address] 34924- 8306 Jan, Chronic allergic rhinitis J30.9 [place] [address] [place] [id number] [place] [address] 49437- 7257 Jan, [place] [address] [place] [id number] [place] [address] 25694- 6644 Jan, Schizoaffective disorder, depressive type F25.1 [place] [address] [place] [id number] [place] [address] 27760- 2239 Jan, [facility] [address] [place] [id number] [place] [address] 05630 -0242 Jan, Sore throat J02.9 and Seasonal allergic rhinitis due to other allergic trigger J30.89 [facility] [address] [place] [id number] [place] [address] 69419- 5851 04 Jan, 2017 [facility] [address] [place] [id number] [place] [address] 65066- 9142 Jan, [facility] [address] [place] [id number] [place] [address] 24009 -0082 Jan, Chronic allergic rhinitis J30.9 [facility] [address] [place] [id number] [place] [address] 90177- 0593 27 Dec, 2016 Paranoid schizophrenia F20.0 ; Primary insomnia F51.01 and Schizoaffective disorder, depressive type F25.1 [facility] [address] [place] [id number] [place] [address] 16197- 6737 Dec, Chronic pain syndrome G89.4 ; Cervicalgia of occipito- atlanto-axial region M54.2 ; Menopausal syndrome (hot flashes) N95.1 and Encounter for immunization Z23 [facility] [address] [place] [id number] [place] [address] 88428- 7482 14 Dec, 2016 [facility] [address] [place] [id number] [place] [address] 18781- 1633 13 Dec, 2016 [facility] [address] [place] [id number] [place] [address] 55115- 6151 08 Dec, 2016 Paranoid schizophrenia F20.0 [facility] [address] [place] [id number] [place] [address] 14610- 3095 Dec, Schizoaffective disorder, depressive type F25.1 [facility] [address] [place] [id number] [place] [address] 34311- 4499 Nov, Hypothyroidism, unspecified type E03.9 [facility] [address] [place] [id number] [place] [address] 60769 -7748 Nov, Acute seasonal allergic rhinitis due to other allergen J30.89 [facility] [address] [place] [address]- 0744 Nov, [place] [address] [place] [id number] [place] [address] 83371- 5957 Nov, Hypothyroidism, unspecified type E03.9 and Other elevated white blood cell (WBC) count D72.828 [place] [address] [place] [id number] [place] [address] 90169- 0521 Nov, Schizoaffective disorder, depressive type F25.1 [place] [address] [place] [id number] [place] [address] 62117- 6183 Nov, Paranoid schizophrenia F20.0 [place] [address] [place] [id number] [place] [address] 40884- 2142 Nov, Type 2 diabetes mellitus without complication, without long- term current use of insulin E11.9 ; Morbid obesity due to excess calories E66.01 and Chronic pain syndrome G89.4 [place] [address] [place] [id number] [place] [address] 99307- 0305 Oct, Paranoid schizophrenia F20.0 [place] [address] [place] [id number] [place] [address] 20418- 7271 Oct, [place] [address] [place] [id number] [place] [address] 30771- 1415 Oct, Schizoaffective disorder, depressive type F25.1 [place] [address] [place] [id number] [place] [address] 96125- 0805 Oct, Hypothyroidism, unspecified type E03.9 and Other elevated white blood cell (WBC) count D72.828 [place] [address] [place] [id number] [place] [address] 63735- 9215 Oct, Morbid obesity due to excess calories E66.01 ; Chronic obstructive pulmonary disease, unspecified COPD type J44.9 ; History of lupus Z87.39 ; Hypothyroidism, unspecified type E03.9 ; Gastroesophageal reflux disease without esophagitis K21.9 ; Primary insomnia F51.01 and Chronic pain syndrome G89.4 [place] [address] [address]- 4638 30 Sep, 2016 [facility] [address] [address]- 7252 Sep, [facility] [address] [address]- 9522 Sep, [facility] [address] [place] [address] 89238- 1706 Sep, Paranoid schizophrenia F20.0 [facility] [address] [place] [address] 27518- 9825 Sep, [facility] [address] [place] [address] 88458- 3100 Sep, Paranoid schizophrenia F20.0 [facility] [address] [place] [address] 90531- 5253 Sep, [facility] [address] [place] [address] 73016- 0908 August, Paranoid schizophrenia F20.0 [facility] [address] [place] [address] 62626- 4559 Jul, [facility] [address] [address]- 0699 Jul, Type 2 diabetes mellitus without complication, without long- term current use of insulin E11.9 ; Morbid obesity due to excess calories E66.01 ; Depression with anxiety F41.8 ; Hypothyroidism, unspecified type E03.9 ; Seasonal allergic rhinitis due to other allergic trigger J30.89 ; Pain, dental K08.89 and Gastroesophageal reflux disease without esophagitis K21.9 [facility] [address] [id number] Jul, Dental examination Z01.20 [facility] [address], [place] [address]- 7232 07 Jul, 2016 Paranoid schizophrenia F20.0 [facility] [address] [place] [id number] [place] [address] 41386- 8477 13 Jun, 2016 Paranoid schizophrenia F20.0 and Depression with anxiety F41.8 [place] [address] [place] [id number] [place] [address] 60167- 3269 10 Jun, 2016 Paranoid schizophrenia F20.0 and Depression with anxiety F41.8 [place] [address] [place] [id number] [place] [address] 59476- 4381 09 Jun, 2016 [place] [address] [place] [id number] [place] [address] 77177- 4663 Jun, [facility] [address] 13815 -6546 Jun, Seasonal allergic rhinitis due to other allergic trigger J30.89 [facility] [place] [id number] [place] [address] 29406 -2765 May, Sore throat J02.9 ; Other viral agents as the cause of diseases classified elsewhere B97.89 and Acute upper respiratory infection, unspecified J06.9 [place] [id number] [place] [address] 02372- 7040 08 May, 2016 Paranoid schizophrenia F20.0 and Depression with anxiety F41.8 [place] [address] [place] [id number] [place] [address] 32084- 6225 Apr, Other seasonal allergic rhinitis J30.2 [place] [address] [place] [id number] [place] [address] 81607- 3250 Apr, Paranoid schizophrenia F20.0 and Depression with anxiety F41.8 [facility] [place] [id number] [place] [address] 92931 -3199 Apr, Bronchitis J40 and Sore throat J02.9 [place] [address] [place] [id number] [place] [address] 00509- 4601 Apr, Type 2 diabetes mellitus without complication, without long- term current use of insulin E11.9 [facility] [address] [place] [id number] [place] [address] 77417 -2591 Apr, Bronchitis J40 [place] [address] 36606- 5493 Apr, [place] [address] [place] [id number] [place] [address] 99241- 7071 Apr, [place] [address] 01253- 8812 Mar, Type 2 diabetes mellitus without complication, [...] R60.9 and Other seasonal allergic rhinitis J30.2 [place] [address] [place] [id number] [place] [address] 22295- 4598 Mar, Paranoid schizophrenia F20.0 and Depression with anxiety F41.8 [place] [address] [place] [id number] [place] [address] 80953- 3075 Feb, [place] [address] [place] [id number] [place] [address] 66043- 5983 Feb, [place] [address] [place] [id number] [place] [address] 06476- 7021 Feb, [place] [address] [place] [id number] [place] [address] 34967- 6548 Feb, [place] [address] 57726- 6566 Feb, Type 2 diabetes mellitus without complication, without long- term current use of insulin E11.9 ; ARIAS on CPAP G47.33 and Preoperative evaluation to rule out surgical contraindication Z01.818 [place] [address] [place] [id number] [place] [address] 45713- 7164 Feb, Paranoid schizophrenia F20.0 and Depression with anxiety F41.8 [facility] [id number] [address]- 5458 Jan, [facility] [address] [place] [id number] [address]- 5243 Jan, Paranoid schizophrenia F20.0 and Depression with anxiety F41.8 [facility] [address] [place] [address] [id number] [place] [address] 49730- 0749 Jan, [facility] [address] [place] [address] [id number] [place] [address] 37631- 5274 Jan, Muscle strain T14.8 [facility] [address] [place] [id number] [place] [address] 83820- 9102 Jan, Paranoid schizophrenia F20.0 [facility] [address] [id number] [place] [address] 76028- 7413 Jan, [facility] [address] [place] [id number] [place] [address] 02635- 9291 Jan, Paranoid schizophrenia F20.0 and Depression with anxiety F41.8 [facility] [id number] [address]- 0599 Jan, [facility] [id number] [address]- 3785 Jan, [facility] [id number], [place] [address]- 4082 28 Dec, 2015 [facility] [id number] [address]- 1020 23 Dec, 2015 Paranoid schizophrenia F20.0 [facility] [id number] [address]- 1398 16 Dec, 2015 Paranoid schizophrenia F20.0 and Depression with anxiety F41.8 [facility] [id number] [address]- 3559 Nov, [place] [address] [place] [address] 96004- 0785 Nov, Paranoid schizophrenia F20.0 [place] [address] [place] [id number] [place] [address] 31647- 9105 Nov, Paranoid schizophrenia F20.0 and Depression with anxiety F41.8 [place] [address] [place] [id number] [place] [address] [phone] Nov, Type 2 diabetes mellitus without complication, without long- term current use of insulin E11.9 ; Paranoid schizophrenia F20.0 ; Chronic obstructive pulmonary disease, unspecified COPD type J44.9 ; Morbid obesity due to excess calories E66.01 and Parkinsonian tremor G20 [place] [address] [place] [id number] [place] [address] [phone] Nov, [place] [address] [place] [id number] [place] [address] [phone] Oct, Paranoid schizophrenia F20.0 [place] [address] [place] [id number] [place] [address] [phone] Oct, Paranoid schizophrenia F20.0 [place] [address] [id number] [place] [address] [phone] Oct, Paranoid schizophrenia F20.0 and Depression with anxiety F41.8 [place] [address] [place] [place] [id number] [place] [address] [phone] Oct, [place] [address] [place] [id number] [place] [address] 57781- 2356 Oct, Paranoid schizophrenia F20.0 and Depression with anxiety F41.8 [facility] [id number] [place] [address] 98016- 5956 Oct, Nasal sore J34.89 [facility] [id number] [place] [address] 63381- 6522 Oct, Type 2 diabetes mellitus without complication, without long- term current use of insulin E11.9 ; Depression with anxiety F41.8 ; Hypothyroidism, unspecified type E03.9 and History of lupus Z87.39 [facility] [id number] [place] [address] 60704- 8944 Oct, [facility] [id number] [place] [address] 31235- 4573 Oct, Type 2 diabetes mellitus without complication, [...] edema R60.9 and History of lupus Z87.39 [facility] [id number] [place] [address] 12475- 6092 Feb, [facility] [id number] [place] [address] 93124- 8433 Jan, [facility] [id number] [place] [address] 36001- 8857 Jan, [facility] [id number] [place] [address] 85268- 4701 Jan, [facility] [id number] [place] [address] 47387- 3814 Dec, [facility] [id number] [place] [address] 45973- 0558 Nov, [facility] [address] [id number]- 8002 Nov, [facility] [id number] [place] [address] 09324- 3903 Oct, [facility] [address] [place] [address] 0141 Oct, [facility] [id number] [address] 3591 Oct, [facility] [id number], [place] [address]- 5913 Sep, Allergic rhinitis 477.9 [facility] [id number] [address]- 9312 Sep, Rhinitis, allergic 477.9 [facility] [address] [id number] [place] [address]- 9411 Sep, Rhinitis, allergic 477.9 [facility] [id number], [place] [address]- 9557 Sep, [facility] [id number], [place] [address]- 2656 August, [facility] [id number] [address]- 6342 August, [facility] [id number] [place] [address]- 0471 August, [facility] [id number], [place] [address]- 9237 28 Jul, 2014 [facility] [place] [facility] [address], [place] [address]- 9618 14 Jul, 2014 [facility] [place] [facility] [address], [place] [address]- 6046 13 Jul, 2014 [facility] [place] [facility] [address] [id number] [place] [address]- 5009 16 Jun, 2014 [facility] [place] [facility] [address] [address]- 7342 16 Jun, 2014 [facility] [place] [facility] [address] [id number] [place] [address]- 8109 Jun, [facility] [place] [facility] [id number] [place] [address]- 9213 12 Jun, 2014 [facility] [place] [facility] [address] [id number] [place] [address]- 9247 Jun, 2014 [facility] [place] [facility] [address] [id number] [place] 6823 Jun, 2014 [facility] [place] [facility] [address] [id number] [place] [address]- 7539 Jun, 2014 [facility] [place] [facility] [address] [id number] [place] [address]- 4163 Jun, 2014 [facility] [place] [facility] [address] [id number] [place] [address]- 4701 May, 2014 [facility] [place] [facility] [address] [facility] [id number] [place] [address]- 9184 May, 2014 [facility] [place] [facility] [address] [facility] [id number] [place] [address]- 3149 May, 2014 [facility] [place] [facility] [address] [facility] [id number] [place] [address]- 3854 May, [facility] [place] [facility] [address] [facility] [id number] [place] [address]- 1962 Apr, [facility] [place] [facility] [address] [facility] [id number] [place] [address]- 1964 Mar, [facility] [place] [facility] [address] [id number] [place] [address]- 0401 Mar, [facility] [place] [facility] [address] [id number] [place] 8141 Mar, [facility] [place] [facility] [address] [id number] [place] 9961 Mar, [facility] [place] [facility] [address] [facility] [id number] [place] 6811 Mar, [facility] [place] [facility] [address] [facility] [id number] [place] 5315 Mar, [facility] [place] [facility] [address] [id number] [place] [address]- 6062 Mar, [facility] [place] [facility] [address] [id number] [place] 7426 Mar, [facility] [place] [facility] [address] [id number] [place] [address]- 6945 Mar, [facility] [place] [facility] [address] [id number] [place] [address]- 6844 Feb, [facility] [place] [facility] [address] [id number] [place] [address]- 8875 Feb, [facility] [place] [facility] [address] [id number] [place] [address]- 0622 Feb, [facility] [place] [facility] [address] [id number] [place] [address]- 9033 Feb, [facility] [place] [facility] [address] [id number] [place] [address]- 9010 Feb, [facility] [place] [facility] [address] [id number] [place] [address]- 7326 Feb, [facility] [place] [facility] [address] [id number] [place] [address]- 1098 Feb, [facility] [place] [facility] [address] [id number] [place] [address]- 1072 Feb, [facility] [place] [facility] [address] [id number] [address]- 5519 Jan, [facility] [place] [facility] [address] [id number] [place] [address]- 2764 Jan, [facility] [place] [facility] [address] [id number] [place] [address]- 9391 Jan, [facility] [place] [facility] [address] [id number] 1020 Jan, [facility] [place] [facility] [address] [id number], [place] [address]- 3083 15 Jan, 2014 [facility] [place] [facility] [address] [id number] [place] [address]- 0245 15 Jan, 2014 [facility] [place] [facility] [address] [id number] [place] [address]- 0490 14 Jan, 2014 [facility] [place] [facility] [address] [id number] [place] [address]- 2703 14 Jan, 2014 [facility] [place] [facility] [address] [id number] [place] [address]- 9584 14 Jan, 2014 [facility] [place] [facility] [address] [id number] [place] [address]- 3222 14 Jan, 2014 [facility] [place] [facility] [address] [id number] [place] [address]- 7695 18 Dec, 2013 [facility] [place] [facility] [address] [id number] [place] [address]- 1115 18 Dec, 2013 [facility] [place] [facility] [address] [id number] [place] [address]- 3170 10 Dec, 2013 [facility] [place] [facility] [address] [id number] [place] [address]- 7966 10 Dec, 2013 [facility] [place] [facility] [address] [id number] [place] [address]- 5211 Nov, [facility] [place] [facility] [address] [id number] [place] [address]- 9451 Nov, [facility] [place] [facility] [address] [id number] [place] [address]- 0780 Nov, [facility] [place] [facility] [address] [id number] [place] [address]- 3406 Nov, [facility] [place] [facility] [address] [id number] [place] [address]- 8893 Nov, [facility] [place] [facility] [address] [id number] [place] [address]- 9752 Oct, [facility] [place] [facility] [address] [id number] [place] [address]- 1875 Oct, [facility] [place] [facility] [address] [id number] [place] [address]- 7459 Oct, [facility] [place] [facility] [address] [id number] [place] [address]- 5296 Oct, [facility] [place] [facility] [address] [id number] [place] [address]- 7422 Sep, [facility] [place] [facility] [address] [id number] [place] [address]- 6714 Sep, [facility] [place] [facility] [address] [id number] [place] [address]- 1530 Sep, [facility] [place] [facility] [address] [id number] [place] [address]- 7068 Sep, [facility] [place] [facility] [address] [id number] [place] [address]- 9541 Sep, [facility] [place] [facility] [address] [id number] [place] [address]- 0549 Sep, [facility] [place] [facility] [address] [id number] [place] [address]- 8650 Sep, [facility] [place] [facility] [address] [id number] [place] [address]- 2685 Sep, [facility] [place] [facility] [address] [id number] [place] [address]- 0276 August, [facility] [place] [facility] [address] [id number] [place] [address]- 3341 August, [facility] [place] [facility] [address] [id number] [place] [address]- 3742 August, [facility] [place] [facility] [address] [id number] [place] [address]- 3886 August, [facility] [place] [facility] [address] [id number] [place] [address]- 0490 August, [facility] [place] [facility] [address] [id number] [place] [address]- 7787 August, [facility] [place] [facility] [address] [id number] [place] [address]- 4798 August, [facility] [place] [facility] [address] [id number] [place] [address]- 3612 Jul, [facility] [place] [facility] [address] [id number] [place] [address]- 2128 Jul, [facility] [place] [facility] [address] [id number] [place] [address]- 8403 Jul, [facility] [place] [facility] [address] [id number] [place] [address]- 8530 Jul, [facility] [place] [facility] [address] [id number] [place] [address]- 5374 Jul, [facility] [place] [facility] [address] [id number] [place] [address]- 7000 Jul, [facility] [place] [facility] [address] [id number] [place] [address]- 5532 Jul, [facility] [place] [facility] [address] [id number] [place] [address]- 6878 Jul, [facility] [place] [facility] [address] [id number] [place] [address]- 4057 Jul, [facility] [place] [facility] [address] [id number] [place] [address]- 8698 Jul, [facility] [place] [facility] [address] [id number] [place] [address]- 6490 Jul, [facility] [place] [facility] [address] [id number] [place] [address]- 6420 Jul, [facility] [place] [facility] [address] [id number] [place] [address]- 7262 Jun, [facility] [place] [facility] [address] [id number] [place] [address]- 0312 31 Jun, 2013 [facility] [place] [facility] [address] [id number] [place] [address]- 6775 Jun, [facility] [place] [facility] [address] [id number] [place] [address]- 6706 Jun, [facility] [place] [facility] [address] [facility] [id number] [place] [address]- 3761 Jun, [facility] [place] [facility] [address] [id number] [place] [address]- 5676 May, [facility] [place] [facility] [address] [id number] [place] [address]- 8547 May, [facility] [place] [facility] [address] [id number] [place] [address]- 9649 May, [facility] [place] [facility] [address] [facility] [id number] [place] [address]- 5076 May, [facility] [place] [facility] [address] [facility] [id number] [place] [address]- 7379 May, [facility] [place] [facility] [address] [facility] [id number] [place] [address]- 5376 May, [facility] [place] [facility] [address] [facility] [id number] [place] [address]- 3304 May, [facility] [place] [facility] [address] [facility] [id number] [place] [address]- 0339 May, [facility] [place] [facility] [address] [id number] [place] [address]- 5218 Mar, [facility] [place] [facility] [address] [id number] [place] [address]- 1966 Mar, [facility] [place] [facility] [address] [facility] [id number] [place] [address]- 4198 Mar, [facility] [place] [facility] [address] [facility] [id number] [place] 0711 Mar, [facility] [place] [facility] [address] [id number] [place] 4958 Mar, [facility] [place] [facility] [address] [id number] [place] [address]- 4810 Mar, [facility] [place] [facility] [address] [id number] [place] [address]- 6856 Feb, [facility] [place] [facility] [address] [id number] [place] [address]- 1607 Feb, [facility] [place] [facility] [address] [id number] [place] [address]- 9570 Jan, [facility] [place] [facility] [address] [id number] [place] [address]- 5005 Jan, [facility] [place] [facility] [address] [id number] [place] [address]- 2400 Jan, [facility] [place] [facility] [address] [id number], [place] [address]- 9035 Jan, [facility] [place] [facility] [address] [id number], [place] [address]- 6495 Jan, [facility] [place] [facility] [address] [id number], [place] [address]- 9575 Jan, [facility] [place] [facility] [address] [id number], [place] [address]- 7278 Jan, [facility] [place] [facility] [address] [id number], [place] [address]- 0558 Jan, [facility] [place] [facility] [address] [id number], [place] [address]- 2133 Jan, [facility] [place] [facility] [address] [id number], [place] [address]- 4772 Jan, [facility] [place] [facility] [address] [id number], [place] [address]- 3150 16 Dec, 2012 [facility] [place] [facility] [address] [id number] [place] [address] 2546 Nov, [facility] [address] [id number] [place] [address]- 0520 Nov, [facility] [address] [id number] [place] [address] 2546 Nov, [facility] [address] [id number] [place] [address]- 5916 Oct, [facility] [address] [id number] [place] [address] 2549 Oct, [facility] [address] [id number] [place] [address]- 1588 August, [facility] [address] [id number] [place] [address]- 7446 Apr, [facility] [address] [facility] [id number] [place] [address]- 2699 Apr, [facility] [address] [id number] [place] [address]- 4622 Feb, [facility] [address] [id number] [place] [address]- 4208 Feb, [facility] [address] [facility] [id number] [place] [address]- 8960 Dec, [facility] [address] [facility] [id number] [place] [address]- 4186 Dec, [facility] [address] [id number] [place] [address]- 6069 Oct, [facility] [address] [id number] [place] [address]- 3322 Oct, [facility] [address] [facility] [id number] [place] [address]- 4860 Oct, [facility] [address] [facility] [id number] [place] [address]- 1442 Jul, IMMUNIZATIONS No Known Immunizations SOCIAL HISTORY Never Assessed REASON FOR VISIT COPD--tjanssenMA, --c/o sob when walking from room to room, she questions if its her allergies causing the sob. PLAN OF CARE Activity Details Follow Up 3 Months Reason:CHM/ VITAL SIGNS Height 57 in 2017-07-22 Weight 222.3 lbs 2017-07-22 Temperature 97.6 degrees Fahrenheit 2017-07-22 Heart Rate 90 bpm 2017-07-22 Respiratory Rate 22 2017-07-22 BMI 48.10 kg/m2 2017-07-22 Blood pressure systolic 132 mmHg 2017-07-22 Blood pressure diastolic 90 mmHg 2017-07-22 MEDICATIONS Medication Instructions Dosage Frequency Start Date End Date Duration Status Incontinence Supply Disposable SUPPLIES as directed Feb, 30 days Active Estradiol 1MG Orally Once a day 1 tablet 24h Active Januvia 100MG Orally Once a day 1 tablet 24h 30 days Active Ventolin HFA 108 (90 Base) MCG/ACT Inhalation every 4 hrs 2 puffs as needed 4h Feb, Active Metformin HCl 1000MG Orally 2 times a day TAKE ONE TABLET BY MOUTH TWICE DAILY 12h 30 days Active Myrbetriq 50 MG Orally Once a day 1 tablet 24h Active Spironolactone 50MG Orally Once a day 1 tablet 24h Active Sertraline HCl 50 mg TAKE ONE TABLET BY MOUTH ONCE DAILY (TAKE WITH 100MG TABLET) Active Norvasc 10 mg Orally Once a day 1 tablet 24h Active Tizanidine HCl 4 MG Orally 3 times a day 1 1/2 tablets 8h Active Loxapine Succinate 25 MG Orally 4 times a day PRN 1 capsule 30 days Active Restasis 0.05 % instill 1 drop into affected eye(s) by ophthalmic route 2 times per day Oct, Active Fluticasone Propionate 50 MCG/ACT Nasally Once a day 1 spray in each nostril 24h Jun, 30 day(s) Active Cetirizine HCl 10 mg Orally Once a day 1 tablet 24h Jun, Sep, 90 days Active Plaquenil 200 mg Orally Once a day 1 tablet with food or milk 24h Active Omeprazole 40 MG Orally Once a day 1 capsule 24h Active Levothyroxine Sodium 150 MCG Orally Once a day 1 tablet 24h 30 days Active Cetirizine HCl Active Neurontin 600 mg Orally 2 times a day 1 tablet 12h 30 days Active Pravastatin Sodium 20 MG Orally Once a day 1 tablet 24h Active Breo Ellipta 100-25 INHALE ONE PUFF BY MOUTH ONCE DAILY AT THE SAME TIME EACH DAY Active Invega Sustenna 234 MG/1.5ML Intramuscular Once a month, on the 10th of every month 1.5 ml Active HydrOXYzine HCl 50 mg TAKE ONE TO TWO TABLETS BY MOUTH EVERY 8 HOURS NEEDED FOR 30 DAYS Active Ambien 5 mg Orally Once a day 1 tablet at bedtime 24h Oct, 28 days Active Lisinopril 2.5 MG Orally Once a day 1 tablet 24h Nov, Active Zoloft 50 MG Orally Once a day 1 tablet 24h Active Sumatriptan Succinate 50 mg Orally Twice a day 1 tablet as needed for migraine- may repeat in 2 hours if needed 12h May, 10 days Active Singulair 10 MG Orally Once a day 1 tablet in the evening 24h Jan, 30 day(s) Active Zoloft 100 mg Orally Once a day 1 tablet 24h 27 Mar, 2017 Active Ibuprofen 800MG TAKE ONE TABLET BY MOUTH THREE TIMES DAILY NEEDED Active RESULTS No Results PROCEDURES Procedure Date Ordered Result Body [facility] 2017 [facility] VISIT ESTABLISHED PATIENT July 22, 2017 INSTRUCTIONS MEDICATIONS ADMINISTERED No Known [...] illness , last one in [facility] 4 years ago
--- OUTSIDE RECORDS SUMMARY | 2018-09-02 13:50 | XMS REPORT ---
Author Author EDWINUMESH CASIANO Organization [facility] [address] Address [address] [place] [address] Care Team Providers Care Adult Protective Caseworker Name Role Phone UMESH PINEDA Unavailable PROBLEMS Type Condition ICD9-CM Code QSP86-SG Code Onset Dates Condition Status SNOMED Code Problem OAB (overactive bladder) N32.81 Active 788644422 Problem Depression with anxiety F41.8 Active 130273836 Problem Other seasonal allergic rhinitis J30.2 Active 621727703 Problem Chronic obstructive pulmonary disease, unspecified COPD type J44.9 Active 56764144 Problem Tobacco abuse Z72.0 Active 041186075 Problem Morbid obesity due to excess calories E66.01 Active 259976335 Problem Dyslipidemia E78.5 Active 204117402 Problem Hypothyroidism (acquired) E03.9 Active 097727832 Problem Essential hypertension I10 Active 10313496 Problem Diabetic polyneuropathy associated with type 2 diabetes mellitus E11.42 Active 981616895 Problem Type 2 diabetes mellitus with diabetic neuropathic arthropathy, 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 Active 675731667 Problem Type 2 diabetes mellitus without complication, without long-term current use of insulin E11.9 Active 381267509 Problem Paranoid schizophrenia F20.0 Active 77684608 Problem Chronic pain syndrome G89.4 Active 201864217 Problem Migraine without aura and without status migrainosus, not intractable G43.009 Active 151379082 Problem Gastroesophageal reflux disease, esophagitis presence not specified K21.9 Active 770324069 Problem Seasonal allergic rhinitis due to pollen J30.1 Active 73022561 Problem COPD exacerbation J44.1 Active 383284871 Problem Seasonal allergic rhinitis due to other allergic trigger J30.89 Active 882523169 Problem Schizoaffective disorder, depressive type F25.1 Active 92301936 Problem History of lupus Z87.39 Active 267143757 Problem Gastroesophageal reflux disease without esophagitis K21.9 Active 195497199 Problem Menopausal syndrome (hot flashes) N95.1 Active 572351731 Problem Other allergic rhinitis J30.89 Active 757953466 Problem Primary insomnia F51.01 Active 7817176 Problem DM neuro manif type II E11.49 Active 68353921 ALLERGIES Substance Reaction Event Type Date Status Sulfamethoxazole-Trimethoprim Unknown Drug Allergy Jun, Active Penicillin V Potassium Unknown Drug Allergy Jun, Active ENCOUNTERS Encounter Location Date Diagnosis [place] [id number] [place] [address] 00253- 1764 Dec, [place] [id number] [place] [address] 50913- 6961 Nov, [place] [id number] [place] [address] 26571- 6817 Nov, [place] [id number] [place] [address] 49761- 1323 Oct, Paranoid schizophrenia F20.0 [place] [id number] [address] Oct Chronic pain syndrome G89.4 and Schizoaffective disorder, depressive type F25.1 [place] [id number] [place] [address] 16759- 0424 Oct, Chronic pain syndrome G89.4 and Schizoaffective disorder, depressive type F25.1 [place] [id number] [place] [address] 32575- 4851 Oct, Type 2 diabetes mellitus without complication, without long- term current use of insulin E11.9 [place] [id number] [place] [address] 90427- 2659 12 Oct, 2017 Essential hypertension I10 and DM neuro manif type II E11.49 [place] [id number] [place] [address] 01640- 9344 Oct, [place] [id number] [place] [address] 74974- 2224 Oct, Schizoaffective disorder, depressive type F25.1 and BMI 45.0 -49.9, adult Z68.42 [facility] [id number] [place] [address] 66278- 2851 Oct, [facility] [id number] [place] [address] 71684- 8012 Oct, Paranoid schizophrenia F20.0 [facility] [id number] [place] [address] 60337- 8702 Oct, Type 2 diabetes mellitus with diabetic neuropathic arthropathy, 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 ; Essential hypertension I10 ; Hypothyroidism (acquired) E03.9 ; Chronic obstructive pulmonary disease, unspecified COPD type J44.9 and Diabetic polyneuropathy associated with type 2 diabetes mellitus E11.42 [facility] [id number] [place] [address] 87681- 9895 Sep, Paranoid schizophrenia F20.0 [facility] [address] 84778- 8157 Sep, Paranoid schizophrenia F20.0 and BMI 45.0-49.9, adult Z68.42 [facility] [id number] [place] [address] 56323- 5416 Sep, Schizoaffective disorder, depressive type F25.1 [facility] [id number] [place] [address] 27297- 2147 Sep, [facility] [id number] [place] [address] 63027- 9539 Sep, Paranoid schizophrenia F20.0 [facility] [id number] [place] [address] 39603- 0876 Sep, [facility] [id number] [place] [address] 44056- 9400 Sep, Hypothyroidism (acquired) E03.9 [facility] [id number] [place] [address] 96861- 6823 Sep, [facility] [address] 54901- 8608 August, Schizoaffective disorder, depressive type F25.1 [facility] [address] 91583- 2776 August, [facility] [address] 06932- 9591 August, [facility] [address] 80085- 6487 August, [place] [address] 28820- 2934 August, Paranoid schizophrenia F20.0 [place] [address] 94211- 4336 August, History of lupus Z87.39 and Chronic pain syndrome G89.4 [place] [address] 09122- 6592 August, [facility] [address] 41227 -4196 August, Seasonal allergic rhinitis, unspecified trigger J30.2 and BMI 45.0-49.9, adult Z68.42 [place] [address] 03297- 0224 Jul, Schizoaffective disorder, depressive type F25.1 [place] [address] 86171- 3285 Jul, [place] [address] 10072- 9470 Jul, Hypothyroidism (acquired) E03.9 [place] [address] 87143- 5867 Jul, Chronic obstructive pulmonary disease, unspecified COPD type J44.9 and Type 2 diabetes mellitus without complication, without long-term current use of insulin E11.9 [place] [address] 05242- 3238 Jul, Paranoid schizophrenia F20.0 [facility] [address] 88500- 7714 Jun, Hypothyroidism (acquired) E03.9 and Seasonal allergic rhinitis due to pollen J30.1 [facility] [address] 71420 -0456 Jun, Shortness of breath at rest R06.02 ; COPD exacerbation J44.1 and BMI 45.0-49.9, adult Z68.42 [facility] [address] 95001- 7870 Jun, [facility] [address] 20493- 6347 Jun, Paranoid schizophrenia F20.0 ; Depression with anxiety F41.8 and BMI 45.0-49.9, adult Z68.42 [facility] [address] 42491- 0559 Jun, Schizoaffective disorder, depressive type F25.1 [facility] [address] [id number] Jun, Dental caries K02.9 [facility] [address] 59799- 3073 12 Jun, 2017 Paranoid schizophrenia F20.0 [facility] [address] 27057- 1371 May, Migraine without aura and without status migrainosus, not intractable G43.009 ; DM neuro manif type II E11.49 and Type 2 diabetes mellitus without complication, without long-term current use of insulin E11.9 [facility] [address] 35446- 9662 May, Migraine without aura and without status migrainosus, not intractable G43.009 [facility] [address] 45846- 8044 May, Depression with anxiety F41.8 [facility] [id number] [place] [address] [id number] May, [facility] [id number] [place] [address] 31684- 0938 May, [place] [id number] [place] [address] 08162- 1024 May, [place] [id number] [place] [address] 68618- 8452 May, Hypothyroidism (acquired) E03.9 [place] [address] 05352- 0177 May, Paranoid schizophrenia F20.0 [place] [id number] [place] [address] 78675- 1064 May, Type 2 diabetes mellitus without complication, [...] N32.81 and Controlled substance agreement signed Z79.899 [place] [id number] [place] [address] 47523- 8648 May, Controlled substance agreement signed Z79.899 [place] [id number] [place] [address] 19873513- 5471 Apr, [facility] [id number] [place] [address] [id number] Apr, Dental examination Z01.20 [place] [id number] [place] [address] 06956- 8357 Apr, Paranoid schizophrenia F20.0 [facility] [id number] [place] [address] 58217- 2209 Apr, Hypertension, unspecified type I10 [facility] [id number] [place] [address] 24567- 1166 Apr, Paranoid schizophrenia F20.0 [facility] [id number] [place] [address] 56019- 4927 Apr, [facility] [id number] [place] [address] 65296- 1748 Apr, Tobacco abuse Z72.0 [facility] [id number] [place] [address] 10095- 2642 Apr, [facility] [id number] [place] [address] 07175- 0555 Mar, [facility] [id number] [place] [address] 74595- 0289 Mar, Paranoid schizophrenia F20.0 and BMI 45.0-49.9, adult Z68.42 [facility] [id number] [place] [address] 07118- 3298 Mar, Schizoaffective disorder, depressive type F25.1 [facility] [id number] [place] [address] 69339- 3310 Mar, [facility] [id number] [place] [address] 18033- 7331 Mar, Hypothyroidism, unspecified type E03.9 [facility] [id number] [place] [address] 51016- 2299 Mar, Schizoaffective disorder, depressive type F25.1 [facility] [id number] [place] [address] 42723 -8248 Feb, Gastroenteritis K52.9 and BMI 45.0-49.9, adult Z68.42 [place] [id number] [place] [address] 77443- 0102 Feb, [place] [id number] [place] [address] 54631- 6337 Feb, [place] [id number] [place] [address] 96816- 7372 Feb, [place] [address] 16804- 1020 Feb, [place] [address] 65721- 7764 Feb, Paranoid schizophrenia F20.0 [place] [id number] [place] [address] 28054- 7854 Feb, Gastroesophageal reflux disease without esophagitis K21.9 ; Other seasonal allergic rhinitis J30.2 ; Other allergic rhinitis J30.89 ; Tobacco abuse Z72.0 and BMI 40.0-44.9, adult Z68.41 [place] [id number] [place] [address] 24196- 7750 Feb, Onychomycosis B35.1 ; Callus of foot L84 and DM neuro manif type II E11.49 [place] [id number] [place] [address] 67705- 9739 Jan, Chronic allergic rhinitis J30.9 [place] [id number] [place] [address] 45030- 7730 Jan, [place] [id number] [place] [address] 02380- 4303 Jan, Schizoaffective disorder, depressive type F25.1 [place] [id number] [place] [address] 19332- 2799 Jan, [facility] [id number] [place] [address] 51154 -8276 07 Oct, 2017 Sore throat J02.9 and Seasonal allergic rhinitis due to other allergic trigger J30.89 [facility] [id number] [place] [address] 71555- 0676 04 Jan, 2017 [facility] [id number] [place] [address] 55961- 5001 04 Jan, 2017 [facility] [id number] [place] [address] 75945 -7723 Jan, Chronic allergic rhinitis J30.9 [facility] [id number] [place] [address] 01466- 8406 27 Dec, 2016 Paranoid schizophrenia F20.0 ; Primary insomnia F51.01 and Schizoaffective disorder, depressive type F25.1 [facility] [id number] [place] [address] 37129- 4607 Dec, Chronic pain syndrome G89.4 ; Cervicalgia of occipito- atlanto-axial region M54.2 ; Menopausal syndrome (hot flashes) N95.1 and Encounter for immunization Z23 [facility] [id number] [place] [address] 06055- 6105 14 Dec, 2016 [facility] [id number] [place] [address] 56332- 7453 13 Dec, 2016 [facility] [id number] [place] [address] 89673- 8312 08 Dec, 2016 Paranoid schizophrenia F20.0 [facility] [id number] [place] [address] 10235- 5168 Dec, Schizoaffective disorder, depressive type F25.1 [facility] [id number] [place] [address] 42894- 8587 Nov, Hypothyroidism, unspecified type E03.9 [facility] [id number] [place] [address] 84267 -0755 Nov, Acute seasonal allergic rhinitis due to other allergen J30.89 [facility] [address] [place] [address]- 7863 Nov, [place] [id number] [place] [address] 31809- 9704 Nov, Hypothyroidism, unspecified type E03.9 and Other elevated white blood cell (WBC) count D72.828 [place] [id number] [place] [address] 84174- 7876 Nov, Schizoaffective disorder, depressive type F25.1 [place] [id number] [place] [address] 43206- 8664 Nov, Paranoid schizophrenia F20.0 [place] [id number] [place] [address] 03658- 1359 Nov, Type 2 diabetes mellitus without complication, without long- term current use of insulin E11.9 ; Morbid obesity due to excess calories E66.01 and Chronic pain syndrome G89.4 [place] [id number] [place] [address] 24424- 9745 Oct, Paranoid schizophrenia F20.0 [place] [id number] [place] [address] 28251- 1442 Oct, [place] [id number] [place] [address] 83617- 0447 Oct, Schizoaffective disorder, depressive type F25.1 [place] [id number] [place] [address] 10841- 8935 Oct, Hypothyroidism, unspecified type E03.9 and Other elevated white blood cell (WBC) count D72.828 [place] [id number] [place] [address] 87849- 5685 Oct, Morbid obesity due to excess calories E66.01 ; Chronic obstructive pulmonary disease, unspecified COPD type J44.9 ; History of lupus Z87.39 ; Hypothyroidism, unspecified type E03.9 ; Gastroesophageal reflux disease without esophagitis K21.9 ; Primary insomnia F51.01 and Chronic pain syndrome G89.4 [place] [address] [address]- 3701 30 Sep, 2016 [facility] [address] [address]- 4863 Sep, [facility] [address] [place] [address]- 0869 Sep, [facility] [id number] [place] [address] 47643- 1660 Sep, Paranoid schizophrenia F20.0 [facility] [address] [place] [address] 97173- 5307 Sep, [facility] [id number] [place] [address] 78966- 1237 Sep, Paranoid schizophrenia F20.0 [facility] [address] [place] [address] 25561- 0123 Sep, [facility] [address] [place] [address] 54500- 4916 August, Paranoid schizophrenia F20.0 [facility] [address] [place] [address] 11956- 4670 Jul, [facility] [address] [address]- 2367 Jul, Type 2 diabetes mellitus without complication, without long- term current use of insulin E11.9 ; Morbid obesity due to excess calories E66.01 ; Depression with anxiety F41.8 ; Hypothyroidism, unspecified type E03.9 ; Seasonal allergic rhinitis due to other allergic trigger J30.89 ; Pain, dental K08.89 and Gastroesophageal reflux disease without esophagitis K21.9 [facility] [address] [id number] Jul, Dental examination Z01.20 [facility] [address] [address]- 2502 07 Jul, 2016 Paranoid schizophrenia F20.0 [facility] [id number] [place] [address] 83555- 5286 13 Jun, 2016 Paranoid schizophrenia F20.0 and Depression with anxiety F41.8 [place] [address] 20851- 5237 10 Jun, 2016 Paranoid schizophrenia F20.0 and Depression with anxiety F41.8 [place] [address] 31405- 4333 09 Jun, 2016 [place] [address] 43918- 8604 Jun, [facility] [address] 41116 -3216 Jun, Seasonal allergic rhinitis due to other allergic trigger J30.89 [facility] [address] 05376 -1432 May, Sore throat J02.9 ; Other viral agents as the cause of diseases classified elsewhere B97.89 and Acute upper respiratory infection, unspecified J06.9 [place] [id number] [place] [address] 99682- 3666 08 May, 2016 Paranoid schizophrenia F20.0 and Depression with anxiety F41.8 [place] [id number] [place] [address] 76299- 9197 Apr, Other seasonal allergic rhinitis J30.2 [place] [id number] [place] [address] 98574- 8219 Apr, Paranoid schizophrenia F20.0 and Depression with anxiety F41.8 [facility] [place] [id number] [place] [address] 80415 -1449 Apr, Bronchitis J40 and Sore throat J02.9 [place] [id number] [place] [address] 61926- 0037 Apr, Type 2 diabetes mellitus without complication, without long- term current use of insulin E11.9 [facility] [address] [place] [address] 50567 -3524 Apr, Bronchitis J40 [facility] [address] 51377- 1650 Apr, [facility] [id number] [place] [address] 53875- 6396 Apr, [facility] [address] 43631- 5668 Mar, Type 2 diabetes mellitus without complication, [...] R60.9 and Other seasonal allergic rhinitis J30.2 [place] [id number] [place] [address] 61325- 4748 Mar, Paranoid schizophrenia F20.0 and Depression with anxiety F41.8 [place] [id number] [place] [address] 59246- 2641 Feb, [place] [id number] [place] [address] 50311- 6056 Feb, [place] [id number] [place] [address] 91334- 6240 Feb, [place] [id number] [place] [address] 16455- 3115 Feb, [place] [id number] [place] [address] 06107- 3459 Feb, Type 2 diabetes mellitus without complication, without long- term current use of insulin E11.9 ; ARIAS on CPAP G47.33 and Preoperative evaluation to rule out surgical contraindication Z01.818 [place] [id number] [place] [address] 29117- 0679 Feb, Paranoid schizophrenia F20.0 and Depression with anxiety F41.8 [facility] [address] [facility] [id number] [address]- 6506 Jan, [facility] [id number] [address]- 8172 Jan, Paranoid schizophrenia F20.0 and Depression with anxiety F41.8 [facility] [id number] [place] [address] 14396- 7831 Jan, [facility] [id number] [place] [address] 14608- 2397 14 Jan, 2016 Muscle strain T14.8 [facility] [id number], [place] [address]- 1927 10 Jan, 2016 Paranoid schizophrenia F20.0 [facility] [id number] [place] [address] 82308- 5830 07 Jan, 2016 [facility] [id number] [place] [address] 10912- 5417 05 Jan, 2016 Paranoid schizophrenia F20.0 and Depression with anxiety F41.8 [facility] [id number] [address]- 1616 Jan, [facility] [id number] [address]- 3509 Jan, [facility] [id number], [place] [address]- 5991 28 Dec, 2015 [facility] ([facility] [address] [facility] [id number] [address] 23 Sep, 2015 Paranoid schizophrenia F20.0 [facility] ([facility] [address] [id number], [place] [address] 16 Sep, 2015 Paranoid schizophrenia F20.0 and Depression with anxiety F41.8 [facility] ([facility] [address] [id number], [place] [address] Nov, [place] [address] [id number] [place] [address] Nov, Paranoid schizophrenia F20.0 [place] [id number] [place] [address] Nov, Paranoid schizophrenia F20.0 and Depression with anxiety F41.8 [place] [id number] [place] [address] Nov, Type 2 diabetes mellitus without complication, without long- term current use of insulin E11.9 ; Paranoid schizophrenia F20.0 ; Chronic obstructive pulmonary disease, unspecified COPD type J44.9 ; Morbid obesity due to excess calories E66.01 and Parkinsonian tremor G20 [place] [id number] [place] [address]- 299[address] Nov, [place] [id number] [place] [address]- 1341 Oct, Paranoid schizophrenia F20.0 [place] [address] [id number] [place] [address] 64839- 9300 Oct, Paranoid schizophrenia F20.0 [place] [id number] [place] [address] 82584- 9947 Oct, Paranoid schizophrenia F20.0 and Depression with anxiety F41.8 [place] [id number] [place] [address] 23523- 1811 Oct, [place] [id number] [place] [address] 23559- 7086 Oct, Paranoid schizophrenia F20.0 and Depression with anxiety F41.8 [place] [id number] [place] [address] 69523- 2726 Oct, Nasal sore J34.89 [place] [address] [address] 250[address] Oct, Type 2 diabetes mellitus without complication, without long- term current use of insulin E11.9 ; Depression with anxiety F41.8 ; Hypothyroidism, unspecified type E03.9 and History of lupus Z87.39 [facility] [id number] [place] [address] 326002- 1087 Oct, [facility] [id number] [place] [address] [phone]- 2671 Oct, Type 2 diabetes mellitus without complication, [...] edema R60.9 and History of lupus Z87.39 [place] [id number] [place] [address] [id number] Feb, [place] [id number] [place] [address] 55905- 7175 Jan, [place] [id number] [place] [address] 53547- 9086 Jan, [place] [id number] [place] [address] 59660- 7991 Jan, [facility] [id number] [place] [address] [id number]- 0126 Dec, [facility] [id number] [place] [address] [phone] Nov, [facility] [id number] [place] [address] [phone]- 5783 Nov, [facility] [id number] [place] [address] [phone]- 1523 Oct, [facility] [address] [address] [place] [address]- 8928 Oct, [facility] [address] [facility] [id number] [place] [address]- 4248 Oct, [facility] [address] [facility] [id number] [place] [address]- 8408 Sep, Allergic rhinitis 477.9 [facility] [address] [id number] [place] [address]- 8833 Sep, Rhinitis, allergic 477.9 [facility] [address] [facility] [id number] [place] [address]- 5290 Sep, Rhinitis, allergic 477.9 [facility] [address] [place] [address]- 3676 Sep, [facility] [id number] [place] [address]- 1132 August, [facility] [id number], [place] [address]- 7303 August, [facility] [address] [id number] [place] [address]- 7493 August, [facility] [address] [place] [address]- 8972 Jul, [facility] [address] [id number] [place] [address]- 2114 14 Jul, 2014 [facility] [place] [facility] [id number] [address]- 6054 Jul, [facility] [place] [facility] [address] [id number] [place] [address]- 6935 16 Jun, 2014 [facility] [place] [facility] [address] [id number] 4785 16 Jun, 2014 [facility] [place] [facility] [address] [id number] [place] [address]- 5008 Jun, [facility] [place] [facility] [address] [facility] [id number] [place] [address]- 4252 Jun, 2014 [facility] [place] [facility] [address] [id number] [place] [address]- 3549 Jun, 2014 [facility] [place] [facility] [address] [id number] [place] [address]- 5009 Jun, 2014 [facility] [place] [facility] [address] [id number] [place] [address]- 9853 Jun, 2014 [facility] [place] [facility] [address] [id number] [place] [address]- 8349 Jun, [facility] [place] [facility] [address] [id number] [place] [address]- 7082 May, 2014 [facility] [place] [facility] [address] [id number] [place] [address]- 5981 May, 2014 [facility] [place] [facility] [address] [facility] [id number] [place] [address]- 2705 May, [facility] [place] [facility] [address] [id number] [place] [address]- 0191 May, [facility] [place] [facility] [address] [id number] [place] [address]- 1574 Apr, [facility] [place] [facility] [address] [facility] [id number] [place] [address]- 3407 Mar, [facility] [place] [facility] [address] [id number] [place] [address]- 4904 Mar, [facility] [place] [facility] [address] [id number] [place] [address]- 0914 Mar, [facility] [place] [facility] [address] [id number] [place] [address]- 9657 Mar, [facility] [place] [facility] [address] [id number] [place] [address]- 1226 Mar, [facility] [place] [facility] [address] [facility] [id number] [place] [address]- 1616 Mar, [facility] [place] [facility] [address] [id number] [place] [address]- 8098 Mar, [facility] [place] [facility] [address] [id number] [place] [address]- 9491 Mar, [facility] [place] [facility] [address] [id number] [place] 0465 Mar, [facility] [place] [facility] [address] [id number] [place] [address]- 3607 Feb, [facility] [place] [facility] [address] [id number] [place] [address]- 3653 Feb, [facility] [place] [facility] [address] [id number] [place] [address]- 7973 Feb, [facility] [place] [facility] [address] [id number] [place] [address]- 8147 Feb, [facility] [place] [facility] [address] [id number] [place] [address]- 1554 Feb, [facility] [place] [facility] [address] [id number] [place] [address]- 5720 Feb, [facility] [place] [facility] [address] [id number] [place] [address]- 7283 Feb, [facility] [place] [facility] [address] [id number] [place] [address]- 1205 Feb, [facility] [place] [facility] [address] [id number] [place] [address]- 5743 Jan, [facility] [place] [facility] [address] [id number] [place] [address]- 4214 Jan, [facility] [place] [facility] [address] [id number] [place] 0144 Jan, [facility] [place] [facility] [address] [id number] [place] 1258 Jan, [facility] [place] [facility] [address] [id number] [place] [address]- 7840 15 Jan, 2014 [facility] [place] [facility] [address] [id number] [place] [address]- 9832 15 Jan, 2014 [facility] [place] [facility] [address] [id number] [place] [address]- 2143 14 Jan, 2014 [facility] [place] [facility] [address] [id number] [place] [address]- 2706 14 Jan, 2014 [facility] [place] [facility] [address] [id number] [place] [address]- 3980 14 Jan, 2014 [facility] [place] [facility] [address] [id number] [place] [address]- 4041 14 Jan, 2014 [facility] [place] [facility] [address] [id number] [place] [address]- 3991 18 Dec, 2013 [facility] [place] [facility] [address] [id number] [place] [address]- 6873 18 Dec, 2013 [facility] [place] [facility] [address] [id number] [place] [address]- 8915 10 Dec, 2013 [facility] [place] [facility] [address] [id number] [place] [address]- 2846 10 Dec, 2013 [facility] [place] [facility] [address] [id number] [place] [address]- 1122 Nov, [facility] [place] [facility] [address] [id number] [place] [address]- 6686 Nov, [facility] [place] [facility] [address] [id number] [place] [address]- 6734 Nov, [facility] [place] [facility] [address] [id number] [place] [address]- 7148 Nov, [facility] [place] [facility] [address] [id number] [place] [address]- 8557 Nov, [facility] [place] [facility] [address] [id number] [place] [address]- 1107 Oct, [facility] [place] [facility] [address] [id number] [place] [address]- 1108 Oct, [facility] [place] [facility] [address] [id number] [place] [address]- 9425 Oct, [facility] [place] [facility] [address] [id number] [place] [address]- 5302 Oct, [facility] [place] [facility] [address] [id number] [place] [address]- 8334 Sep, [facility] [place] [facility] [address] [id number] [place] [address]- 6933 Sep, [facility] [place] [facility] [address] [id number] [place] [address]- 7751 Sep, [facility] [place] [facility] [address] [id number] [place] [address]- 5170 Sep, [facility] [place] [facility] [address] [id number] [place] [address]- 0948 Sep, [facility] [place] [facility] [address] [id number] [place] [address]- 1914 Sep, [facility] [place] [facility] [address] [id number] [place] [address]- 5675 Sep, [facility] [place] [facility] [address] [id number] [place] [address]- 9047 Sep, [facility] [place] [facility] [address] [id number] [place] [address]- 1649 August, [facility] [place] [facility] [address] [id number] [place] [address]- 2731 August, [facility] [place] [facility] [address] [id number] [place] [address]- 6987 August, [facility] [place] [facility] [address] [id number] [place] [address]- 6889 August, [facility] [place] [facility] [address] [id number] [place] [address]- 7075 August, [facility] [place] [facility] [address] [id number] [place] [address]- 1276 August, [facility] [place] [facility] [address] [id number] [place] [address]- 4234 August, [facility] [place] [facility] [address] [id number] [place] [address]- 3781 Jul, [facility] [place] [facility] [address] [id number] [place] [address]- 1981 Jul, [facility] [place] [facility] [address] [id number] [place] [address]- 4694 Jul, [facility] [place] [facility] [address] [id number] [place] [address]- 6849 Jul, [facility] [place] [facility] [address] [id number] [place] [address]- 3231 Jul, [facility] [place] [facility] [address] [id number] [place] [address]- 0299 Jul, [facility] [place] [facility] [address] [id number] [place] [address]- 7438 Jul, [facility] [place] [facility] [address] [id number] [place] [address]- 3484 Jul, [facility] [place] [facility] [address] [id number] [place] [address]- 1607 Jul, [facility] [place] [facility] [address] [id number] [place] [address]- 0950 Jul, [facility] [place] [facility] [address] [id number] [place] [address]- 6170 Jul, [facility] [place] [facility] [address] [id number] [place] [address]- 8959 Jul, [facility] [place] [facility] [address] [id number] [place] [address]- 2952 Jun, [facility] [place] [facility] [address] [id number] [place] [address]- 9225 Jun, [facility] [place] [facility] [address] [id number] [place] [address]- 8450 Jun, [facility] [place] [facility] [address] [id number] [place] [address]- 0963 Jun, [facility] [place] [facility] [address] [id number] [place] [address]- 2885 Jun, [facility] [place] [facility] [address] [id number] [place] [address]- 3380 May, [facility] [place] [facility] [address] [id number] [place] [address]- 9759 May, [facility] [place] [facility] [address] [facility] [id number] [place] [address]- 5013 May, [facility] [place] [facility] [address] [facility] [id number] [place] [address]- 7380 May, [facility] [place] [facility] [address] [id number] [place] [address]- 2528 May, [facility] [place] [facility] [address] [facility] [id number] [place] [address]- 9208 May, [facility] [place] [facility] [address] [facility] [id number] [place] [address]- 6722 May, [facility] [place] [facility] [address] [facility] [id number] [place] [address]- 1631 May, [facility] [place] [facility] [address] [facility] [id number] [place] 2440 Mar, [facility] [place] [facility] [address] [facility] [id number] [place]- 8364 Mar, [facility] [place] [facility] [address] [facility] [id number] [place] [address]- 4685 Mar, [facility] [place] [facility] [address] [facility] [id number] [place] [address]- 6501 Mar, [facility] [place] [facility] [address] [id number] [place] [address]- 3618 Mar, [facility] [place] [facility] [address] [id number], [place] [address]- 2844 Mar, [facility] [place] [facility] [address] [id number] [place] [address]- 1965 Feb, [facility] [place] [facility] [address] [id number], [place] [address]- 8145 Feb, [facility] [place] [facility] [address] [id number] [place] [address]- 0124 Jan, [facility] [place] [facility] [address] [id number], [place] [address]- 8118 Jan, [facility] [place] [facility] [address] [id number], [place] [address]- 8442 Jan, [facility] [place] [facility] [address] [id number], [place] [address]- 8985 Jan, [facility] [place] [facility] [address] [id number], [place] [address]- 3282 Jan, [facility] [place] [facility] [address] [id number], [place] [address]- 9196 Jan, [facility] [place] [facility] [address] [id number], [place] [address]- 3674 Jan, [facility] [place] [facility] [address] [id number], [place] [address]- 9225 Jan, [facility] [place] [facility] [address] [id number], [place] [address]- 0269 08 Jan, 2013 [facility] [place] [facility] [address] [id number], [place] [address]- 6540 Jan, [facility] [place] [facility] [address] [id number], [place] [address]- 2548 16 Dec, 2012 [facility] [place] [facility] [address] [id number] [place] [address]- 7689 Nov, [facility] [address] [id number] [place] [address]- 1991 Nov, [facility] [address] [id number] [place] [address] 2546 Nov, [facility] [address] [id number] [place] [address]- 8406 Oct, [facility] [address] [id number] [place] [address] 254 Oct, [facility] [address] [id number] [place] [address]- 3140 August, [facility] [address] [id number] [place] [address]- 8046 Apr, [facility] [address] [facility] [id number] [place] [address]- 0029 Apr, [facility] [address] [id number] [place] [address]- 1983 Feb, [facility] [address] [id number] [place] [address]- 5511 Feb, [facility] [address] [facility] [id number] [place] [address]- 3776 Dec, [facility] [address] [facility] [id number] [place] [address]- 7326 Dec, [facility] [address] [id number] [place] [address]- 0886 Oct, [facility] [address] [id number] [place] [address]- 5350 Oct, [facility] [address] [facility] [id number] [place] [address]- 8204 Oct, [facility] [address] [id number] [place] [address]- 5059 Jul, IMMUNIZATIONS No Known Immunizations SOCIAL HISTORY Never Assessed REASON FOR VISIT f/u---DBennettRN PLAN OF CARE Activity Details Follow Up 6 Months Reason: VITAL SIGNS Height 57 in 2017-07-14 Weight 226 lbs 2017-07-14 Heart Rate 80 bpm 2017-07-14 Respiratory Rate 20 2017-07-14 BMI 48.90 kg/m2 2017-07-14 Blood pressure systolic 112 mmHg 2017-07-14 Blood pressure diastolic 80 mmHg 2017-07-14 MEDICATIONS Medication Instructions Dosage Frequency Start Date End Date Duration Status Tizanidine HCl 4 MG Orally 3 times a day 1 1/2 tablets 8h Active Breo Ellipta 100-25 INHALE ONE PUFF BY MOUTH ONCE DAILY AT THE SAME TIME EACH DAY Active Sertraline HCl 50 mg TAKE ONE TABLET BY MOUTH ONCE DAILY (TAKE WITH 100MG TABLET) Active Ventolin HFA 108 (90 Base) MCG/ACT Inhalation every 4 hrs 2 puffs as needed 4h Feb, Active Singulair 10 MG Orally Once a day 1 tablet in the evening 24h Jan, 30 day(s) Active Ibuprofen 800MG TAKE ONE TABLET BY MOUTH THREE TIMES DAILY NEEDED Active Metformin HCl 1000MG Orally 2 times a day TAKE ONE TABLET BY MOUTH TWICE DAILY 12h 30 days Active Loxapine Succinate 25 MG Orally 4 times a day PRN 1 capsule 30 days Active Incontinence Supply Disposable SUPPLIES as directed Feb, 30 days Active Restasis 0.05 % instill 1 drop into affected eye(s) by ophthalmic route 2 times per day Oct, Active Estradiol 1MG Orally Once a day 1 tablet 24h Active Zoloft 100 mg Orally Once a day 1 tablet 24h Mar, Active HydrOXYzine HCl 50 mg TAKE ONE TO TWO TABLETS BY MOUTH EVERY 8 HOURS NEEDED FOR 30 DAYS Active Norvasc 10 mg Orally Once a day 1 tablet 24h Active Levothyroxine Sodium 150 MCG Orally Once a day 1 tablet 24h 30 days Active Neurontin 600 mg Orally 2 times a day 1 tablet 12h 30 days Active Lisinopril 2.5 MG Orally Once a day 1 tablet 24h Nov, Active Myrbetriq 50 MG Orally Once a day 1 tablet 24h Active Spironolactone 50MG Orally Once a day 1 tablet 24h Active Pravastatin Sodium 20 MG Orally Once a day 1 tablet 24h Active Sumatriptan Succinate 50 mg Orally Twice a day 1 tablet as needed for migraine- may repeat in 2 hours if needed 12h 08 May, 2017 10 days Active Omeprazole 40 MG Orally Once a day 1 capsule 24h Active Invega Sustenna 234 MG/1.5ML Intramuscular Once a month, on the 10th of every month 1.5 ml Active Ambien 5 mg Orally Once a day 1 tablet at bedtime 24h Oct, 28 days Active Plaquenil 200 mg Orally Once a day 1 tablet with food or milk 24h Active Januvia 100MG Orally Once a day 1 tablet 24h 30 days Active RESULTS No Results PROCEDURES Procedure Date Ordered Result Body Site [facility] VISIT ESTABLISHED PATIENT July 14, 2017 INSTRUCTIONS MEDICATIONS ADMINISTERED No Known Medications [...] for psychosis/mental illness , last one in [facility] 4 years ago
--- OUTSIDE RECORDS SUMMARY | 2018-09-02 13:51 | XMS REPORT ---
Author Author KATYA WILSON [facility] Address [address] [place] [address] Care Team Providers Care Bone Puller Name Role Phone KATYA WILSON Unavailable PROBLEMS Type Condition ICD9-CM Code CVP92-LU Code Onset Dates Condition Status SNOMED Code Problem OAB (overactive bladder) N32.81 Active 431434985 Problem Depression with anxiety F41.8 Active 727001348 Problem Other seasonal allergic rhinitis J30.2 Active 392843277 Problem Chronic obstructive pulmonary disease, unspecified COPD type J44.9 Active 33319741 Problem Tobacco abuse Z72.0 Active 292019286 Problem Morbid obesity due to excess calories E66.01 Active 629628303 Problem Dyslipidemia E78.5 Active 313889209 Problem Hypothyroidism (acquired) E03.9 Active 044959365 Problem Essential hypertension I10 Active 97604198 Problem Diabetic polyneuropathy associated with type 2 diabetes mellitus E11.42 Active 398812473 Problem Type 2 diabetes mellitus with diabetic neuropathic arthropathy, 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 Active 429885532 Problem Type 2 diabetes mellitus without complication, without long-term current use of insulin E11.9 Active 987337057 Problem Paranoid schizophrenia F20.0 Active 88170827 Problem Chronic pain syndrome G89.4 Active 879360683 Problem Migraine without aura and without status migrainosus, not intractable G43.009 Active 630397837 Problem Gastroesophageal reflux disease, esophagitis presence not specified K21.9 Active 042459747 Problem Seasonal allergic rhinitis due to pollen J30.1 Active 55383473 Problem COPD exacerbation J44.1 Active 564885119 Problem Seasonal allergic rhinitis due to other allergic trigger J30.89 Active 982457718 Problem Schizoaffective disorder, depressive type F25.1 Active 09888887 Problem History of lupus Z87.39 Active 752236612 Problem Gastroesophageal reflux disease without esophagitis K21.9 Active 061675959 Problem Menopausal syndrome (hot flashes) N95.1 Active 876707308 Problem Other allergic rhinitis J30.89 Active 686155922 Problem Primary insomnia F51.01 Active 3970085 Problem DM neuro manif type II E11.49 Active 87336715 ALLERGIES Substance Reaction Event Type Date Status Sulfamethoxazole-Trimethoprim Unknown Drug Allergy Jun, Active Penicillin V Potassium Unknown Drug Allergy Jun, Active ENCOUNTERS Encounter Location Date Diagnosis [place] [id number] [place] [address] 60307- 4847 Nov, [place] [id number] [place] [address] 98642- 1112 Nov, [place] [id number] [place] [address] 04386- 9287 Oct, [place] [id number] [address] Oct Chronic pain syndrome G89.4 and Schizoaffective disorder, depressive type F25.1 [place] [id number] [place] [address] 25039- 2459 Oct, Chronic pain syndrome G89.4 and Schizoaffective disorder, depressive type F25.1 [place] [id number] [place] [address] 00867- 4970 Oct, Type 2 diabetes mellitus without complication, without long- term current use of insulin E11.9 [place] [id number] [place] [address] 34045- 7462 12 Oct, 2017 Essential hypertension I10 and DM neuro manif type II E11.49 [place] [address] [place] [address] 75623- 9084 Oct, [place] [address] [place] [id number] [place] [address] 25068- 6117 Oct, Schizoaffective disorder, depressive type F25.1 and BMI 45.0 -49.9, adult Z68.42 [place] [id number] [place] [address] 61770- 3699 Oct, [facility] [address] [place] [address] 07945- 4132 Oct, Paranoid schizophrenia F20.0 [facility] [id number] [place] [address] 41419- 2134 Oct, Type 2 diabetes mellitus with diabetic neuropathic arthropathy, 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 ; Essential hypertension I10 ; Hypothyroidism (acquired) E03.9 ; Chronic obstructive pulmonary disease, unspecified COPD type J44.9 and Diabetic polyneuropathy associated with type 2 diabetes mellitus E11.42 [facility] [id number] [place] [address] 82451- 5041 Sep, Paranoid schizophrenia F20.0 [facility] [address] [id number] [place] [address] 91357- 3006 Sep, Paranoid schizophrenia F20.0 and BMI 45.0-49.9, adult Z68.42 [facility] [id number] [place] [address] 18712- 0710 Sep, Schizoaffective disorder, depressive type F25.1 [facility] [id number] [place] [address] 10113- 8345 Sep, [facility] [id number] [place] [address] 57466- 4735 Sep, Paranoid schizophrenia F20.0 [facility] [id number] [place] [address] 99741- 5184 Sep, [facility] [id number] [place] [address] 10138- 5695 Sep, Hypothyroidism (acquired) E03.9 [facility] [id number] [place] [address] 52391- 4719 Sep, [facility] [id number] [place] [address] 49344- 7554 August, Schizoaffective disorder, depressive type F25.1 [place] [id number] [place] [address] 66817- 4314 August, [facility] [id number] [place] [address] 36788- 3630 August, [facility] [id number] [place] [address] 41614- 5572 August, [place] [address] 60190- 5349 August, Paranoid schizophrenia F20.0 [place] [id number] [place] [address] 30416- 5695 August, History of lupus Z87.39 and Chronic pain syndrome G89.4 [place] [id number] [place] [address] 11702- 5285 August, [facility] [address] 66891 -2461 August, Seasonal allergic rhinitis, unspecified trigger J30.2 and BMI 45.0-49.9, adult Z68.42 [place] [id number] [place] [address] 07735- 8461 Jul, Schizoaffective disorder, depressive type F25.1 [place] [id number] [place] [address] 72265- 5166 Jul, [place] [id number] [place] [address] 53536- 9746 Jul, Hypothyroidism (acquired) E03.9 [place] [address] [place] [address] 20369- 2884 Jul, Chronic obstructive pulmonary disease, unspecified COPD type J44.9 and Type 2 diabetes mellitus without complication, without long-term current use of insulin E11.9 [place] [id number] [place] [address] 66122- 2246 Jul, Paranoid schizophrenia F20.0 [place] [address] [place] [id number] [place] [address] 32047- 7663 Jun, Hypothyroidism (acquired) E03.9 and Seasonal allergic rhinitis due to pollen J30.1 [facility] [address] 55429 -2487 Jun, Shortness of breath at rest R06.02 ; COPD exacerbation J44.1 and BMI 45.0-49.9, adult Z68.42 [place] [address] 02777- 8717 Jun, [place] [address] 97514- 7993 Jun, Paranoid schizophrenia F20.0 ; Depression with anxiety F41.8 and BMI 45.0-49.9, adult Z68.42 [facility] [address] 41032- 6725 Jun, Schizoaffective disorder, depressive type F25.1 [facility] [address] [id number] Jun, Dental caries K02.9 [place] [address] 23589- 7174 Jun, Paranoid schizophrenia F20.0 [facility] [address] 74858- 0531 May, Migraine without aura and without status migrainosus, not intractable G43.009 ; DM neuro manif type II E11.49 and Type 2 diabetes mellitus without complication, without long-term current use of insulin E11.9 [facility] [address] 38813- 5823 May, Migraine without aura and without status migrainosus, not intractable G43.009 [place] [address] 38506- 5149 May, Depression with anxiety F41.8 [facility] [address] [id number] May, [facility] [id number] [place] [address] 25077- 8344 May, [facility] [address] [id number] [place] [address] 31543- 1619 May, [facility] [id number] [place] [address] 74633- 8964 May, Hypothyroidism (acquired) E03.9 [place] [id number] [place] [address] 95809- 7890 May, Paranoid schizophrenia F20.0 [place] [address] 57436- 6438 May, Type 2 diabetes mellitus without complication, [...] N32.81 and Controlled substance agreement signed Z79.899 [place] [id number] [place] [address] 13927- 1055 May, Controlled substance agreement signed Z79.899 [place] [id number] [place] [address] 81588- 0416 Apr, [facility] [address] [id number] Apr, Dental examination Z01.20 [place] [id number] [place] [address] 15267- 6553 Apr, Paranoid schizophrenia F20.0 [facility] [id number] [place] [address] 20943- 0379 Apr, Hypertension, unspecified type I10 [facility] [id number] [place] [address] 47190- 4413 Apr, Paranoid schizophrenia F20.0 [facility] [address] [id number] [place] [address] 22187- 0361 Apr, [facility] [address] 50271- 6519 Apr, Tobacco abuse Z72.0 [facility] [address] 86649- 3101 Apr, [facility] [address] [id number] [place] [address] 51904- 4442 Mar, [facility] [address] 09450- 4118 Mar, Paranoid schizophrenia F20.0 and BMI 45.0-49.9, adult Z68.42 [facility] [address] [id number] [place] [address] 87113- 6134 Mar, Schizoaffective disorder, depressive type F25.1 [place] [id number] [place] [address] 20641- 3597 Mar, [facility] [id number] [place] [address] 11641- 2814 Mar, Hypothyroidism, unspecified type E03.9 [facility] [address] [id number] [place] [address] 77349- 9386 Mar, Schizoaffective disorder, depressive type F25.1 [facility] [id number] [place] [address] 79457 -5162 Feb, Gastroenteritis K52.9 and BMI 45.0-49.9, adult Z68.42 [facility] [address] [id number] [place] [address] 28657- 8756 Feb, [place] [id number] [place] [address] 22001- 9266 Feb, [place] [address] 61543- 7766 Feb, [place] [address] 58725- 3012 Feb, [place] [address] 38759- 5290 Feb, Paranoid schizophrenia F20.[address] 18015- 0947 Feb, Gastroesophageal reflux disease without esophagitis K21.9 ; Other seasonal allergic rhinitis J30.2 ; Other allergic rhinitis J30.89 ; Tobacco abuse Z72.0 and BMI 40.0-44.9, adult Z68.41 [place] [address] 66001- 0562 Feb, Onychomycosis B35.1 ; Callus of foot L84 and DM neuro manif type II E11.49 [place] [id number] [place] [address] 32483- 8859 Jan, Chronic allergic rhinitis J30.9 [place] [address] 29211- 5515 Jan, [place] [address] 34833- 0243 Jan, Schizoaffective disorder, depressive type F25.1 [place] [address] 69393- 0364 Jan, [facility] [place] [address] 01122 -9484 Jan, Sore throat J02.9 and Seasonal allergic rhinitis due to other allergic trigger J30.89 [place] [address] 87027- 3650 Jan, [facility] [id number] [place] [address] 94025- 7150 Jan, [facility] [id number] [place] [address] 45084 -9674 Jan, Chronic allergic rhinitis J30.9 [facility] [id number] [place] [address] 73000- 0792 Dec, Paranoid schizophrenia F20.0 ; Primary insomnia F51.01 and Schizoaffective disorder, depressive type F25.1 [facility] [id number] [place] [address] 11994- 2584 Dec, Chronic pain syndrome G89.4 ; Cervicalgia of occipito- atlanto-axial region M54.2 ; Menopausal syndrome (hot flashes) N95.1 and Encounter for immunization Z23 [facility] [address] [id number] [place] [address] 70612- 2597 14 Dec, 2016 [facility] [id number] [place] [address] 48931- 1254 Dec, [facility] [id number] [place] [address] 74345- 0470 Dec, Paranoid schizophrenia F20.0 [facility] [id number] [place] [address] 24942- 6448 Dec, Schizoaffective disorder, depressive type F25.1 [facility] [id number] [place] [address] 61944- 6695 Nov, Hypothyroidism, unspecified type E03.9 [facility] [id number] [place] [address] 26128 -4805 Nov, Acute seasonal allergic rhinitis due to other allergen J30.89 [facility] [id number] [place] [address] 12686- 1385 Nov, [facility] [address] [place] [address]- 4602 Nov, Hypothyroidism, unspecified type E03.9 and Other elevated white blood cell (WBC) count D72.828 [place] [address] [place] [address] 82908- 0497 Nov, Schizoaffective disorder, depressive type F25.1 [place] [id number] [place] [address] 14679- 1022 Nov, Paranoid schizophrenia F20.0 [place] [address] [id number] [place] [address] 93016- 7290 Nov, Type 2 diabetes mellitus without complication, without long- term current use of insulin E11.9 ; Morbid obesity due to excess calories E66.01 and Chronic pain syndrome G89.4 [place] [address] [place] [address] 70428- 9210 Oct, Paranoid schizophrenia F20.0 [place] [address] [id number] [place] [address] 33767- 7910 Oct, [place] [id number] [place] [address] 98655- 7849 Oct, Schizoaffective disorder, depressive type F25.1 [place] [address] [id number] [place] [address] 35311- 0288 Oct, Hypothyroidism, unspecified type E03.9 and Other elevated white blood cell (WBC) count D72.828 [place] [address] [address] [place] [address] 20851- 5017 Oct, Morbid obesity due to excess calories E66.01 ; Chronic obstructive pulmonary disease, unspecified COPD type J44.9 ; History of lupus Z87.39 ; Hypothyroidism, unspecified type E03.9 ; Gastroesophageal reflux disease without esophagitis K21.9 ; Primary insomnia F51.01 and Chronic pain syndrome G89.4 [place] [address] [id number] [place] [address] 17292- 8371 Sep, [place] [address] [address]- 6582 Sep, [facility] [address] [address]- 9789 Sep, [facility] [address] [address]- 0469 Sep, Paranoid schizophrenia F20.0 [facility] [address] [address]- 3009 Sep, [facility] [address] [address]- 6414 Sep, Paranoid schizophrenia F20.0 [facility] [address] [address]- 9313 Sep, [facility] [address] [place] [address] 39453- 2780 August, Paranoid schizophrenia F20.0 [facility] [address] [address]- 8155 Jul, [facility] [address] [place] [address] 42135- 2958 Jul, Type 2 diabetes mellitus without complication, without long- term current use of insulin E11.9 ; Morbid obesity due to excess calories E66.01 ; Depression with anxiety F41.8 ; Hypothyroidism, unspecified type E03.9 ; Seasonal allergic rhinitis due to other allergic trigger J30.89 ; Pain, dental K08.89 and Gastroesophageal reflux disease without esophagitis K21.9 [facility] [address] [address] 12 Jul, 2016 Dental examination Z01.20 [facility] [address], [place] [address]- 8832 07 Jul, 2016 Paranoid schizophrenia F20.0 [facility] [address] [address]- 0900 Jun, Paranoid schizophrenia F20.0 and Depression with anxiety F41.8 [place] [id number] [place] [address] 37496- 7937 10 Jun, 2016 Paranoid schizophrenia F20.0 and Depression with anxiety F41.8 [place] [address] [address] [id number] [place] [address] 67670- 1038 09 Jun, 2016 [place] [address] 52135- 4261 Jun, [facility] [place] [address] 06612 -2938 Jun, Seasonal allergic rhinitis due to other allergic trigger J30.89 [facility] [place] [id number] [place] [address] 18711 -8004 25 May, 2016 Sore throat J02.9 ; Other viral agents as the cause of diseases classified elsewhere B97.89 and Acute upper respiratory infection, unspecified J06.9 [place] [id number] [place] [address] 43650- 4072 May, Paranoid schizophrenia F20.0 and Depression with anxiety F41.8 [place] [address] [address] [place] [address] 68045- 3820 Apr, Other seasonal allergic rhinitis J30.2 [place] [id number] [place] [address] 94059- 0451 Apr, Paranoid schizophrenia F20.0 and Depression with anxiety F41.8 [facility] [place] [id number] [place] [address] 76561 -8555 Apr, Bronchitis J40 and Sore throat J02.9 [place] [id number] [place] [address] 14597- 5466 Apr, Type 2 diabetes mellitus without complication, without long- term current use of insulin E11.9 [facility] [place] [id number] [place] [address] 04606 -2244 Apr, Bronchitis J40 [address], [place] [address]- 3503 Apr, [place] [address] [place] [id number] [place] [address] 35600- 1831 Apr, [place] [address] [id number] [place] [address] 20014- 9588 Mar, Type 2 diabetes mellitus without complication, [...] Other seasonal allergic rhinitis J30.2 [place] [address] [place] [id number] [place] [address] 77579- 6419 Mar, Paranoid schizophrenia F20.0 and Depression with anxiety F41.8 [place] [address] [place] [id number] [place] [address] 01797- 2205 Feb, [place] [address] [place] [address] [place] [address] 16633- 4047 Feb, [place] [address] [place] [id number] [place] [address] 11483- 6019 Feb, [place] [address] [place] [id number] [place] [address] 77357- 2410 Feb, [place] [address] [place] [address] [place] [address] 84846- 7330 Feb, Type 2 diabetes mellitus without complication, without long- term current use of insulin E11.9 ; ARIAS on CPAP G47.33 and Preoperative evaluation to rule out surgical contraindication Z01.818 [place] [address] [place] [address] 66108- 0140 Feb, Paranoid schizophrenia F20.0 and Depression with anxiety F41.8 [place] [address] [facility] [id number] [address]- 7473 Jan, [facility] [address] [place] [id number] [place] [address] 80307- 2304 Jan, Paranoid schizophrenia F20.0 and Depression with anxiety F41.8 [facility] [address] [place] [id number] [address]- 3393 17 Jan, 2016 [facility] [address] [facility] [id number] [place] [address] 05620- 0762 14 Jan, 2016 Muscle strain T14.8 [facility] [address] [place] [id number] [place] [address] 26539- 2732 10 Jan, 2016 Paranoid schizophrenia F20.0 [facility] [address] [place] [id number] [address]- 6737 07 Jan, 2016 [facility] [address] [place] [id number] [place] [address] 18645- 2876 Jan, Paranoid schizophrenia F20.0 and Depression with anxiety F41.8 [facility] [address] [place] [id number] [address]- 8970 Jan, [facility] [address] [place] [id number] [place] [address] 64098- 5159 Jan, [facility] [address] [place] [id number] [address]- 4972 28 Dec, 2015 [facility] [address] [place] [id number], [place] [address]- 3859 23 Dec, 2015 Paranoid schizophrenia F20.0 [facility] [address] [facility] [id number] [address]- 9748 16 Dec, 2015 Paranoid schizophrenia F20.0 and Depression with anxiety F41.8 [facility] [address] [facility] [id number], [place] [address]- 3335 31 Nov, 2015 [facility] [address] [place] [id number] [address]- 2886 Nov, Paranoid schizophrenia F20.0 [place] [address] [place] [id number] [place] [address] 07762- 7961 Nov, Paranoid schizophrenia F20.0 and Depression with anxiety F41.8 [place] [address] [place] [id number] [place] [address] 77769- 4826 Nov, Type 2 diabetes mellitus without complication, without long- term current use of insulin E11.9 ; Paranoid schizophrenia F20.0 ; Chronic obstructive pulmonary disease, unspecified COPD type J44.9 ; Morbid obesity due to excess calories E66.01 and Parkinsonian tremor G20 [place] [address] [place] [id number] [place] [address] 72054- 1083 Nov, [place] [address] [place] [id number] [place] [address] 96621- 7347 Oct, Paranoid schizophrenia F20.0 [place] [address] [place] [id number] [place] [address] 02512- 4123 Oct, Paranoid schizophrenia F20.0 [place] [address] [place] [id number] [place] [address] 50151- 7233 Oct, Paranoid schizophrenia F20.0 and Depression with anxiety F41.8 [place] [address] [place] [id number] [place] [address] 34801- 7016 Oct, [place] [address] [place] [id number] [place] [address] 10171- 9483 Oct, Paranoid schizophrenia F20.0 and Depression with anxiety F41.8 [place] [id number] [place] [address] 81103- 1971 Oct, Nasal sore J34.89 [place] [id number] [place] [address] 84797- 9718 Oct, Type 2 diabetes mellitus without complication, without long- term current use of insulin E11.9 ; Depression with anxiety F41.8 ; Hypothyroidism, unspecified type E03.9 and History of lupus Z87.39 [facility] [id number] [place] [address] 92998- 0163 Oct, [facility] [id number] [place] [address] 06288- 7923 Oct, Type 2 diabetes mellitus without complication, [...] R60.9 and History of lupus Z87.39 [facility] [id number] [place] [address] [id number] Feb, [facility] [id number] [place] [address] 19973- 7605 Jan, [facility] [id number] [place] [address] 91987- 9262 Jan, [facility] [id number] [place] [address] [id number] Jan, [facility] [id number] [place] [address] 38895- 0175 Dec, [facility] [id number] [place] [address] 89413- 8541 Nov, [facility] [address] [id number] [place] [address] Nov, [facility] [address] [address] Oct, [facility] [id number] [place] [address]- 9577 Oct, [facility] [address] [place] [address] 17 Oct, 2014 [facility] [address] [facility] [id number] [address] Sep, Allergic rhinitis 477.9 [facility] [address] [id number] [place] [address] 11 Sep, 2014 Rhinitis, allergic 477.9 [facility] [id number] [place] [address] Sep, Rhinitis, allergic 477.9 [facility] [address] [id number] [place] [address] Sep, [facility] [id number] [address] August, [facility] [id number] [address] August, [facility] [id number] [address] August, [facility] [id number] [place] [address] 3[address] Jul, [facility] [id number] [address] 28[address] Jul, [facility] [id number] [address] Jul, [facility] [place] [facility] [address] [id number] [address] Jun, [facility] [place] [facility] [address] [id number] [place] [address]- 1813 16 Jun, 2014 [facility] [place] [facility] [id number] [address] 87[address] Jun, [facility] [place] [facility] [address] [id number] [place] [address]- 2933 Jun, [facility] [address] [id number] [place] [address]- 7742 11 Jun, 2014 [facility] [place] [facility] [address] [id number] [place] [address]- 6298 Jun, 2014 [facility] [place] [facility] [address] [id number] [place] [address]- 3572 Jun, 2014 [facility] [place] [facility] [address] [id number] [place] [address]- 5768 Jun, 2014 [facility] [place] [facility] [address] [id number] [place] [address]- 8459 May, 2014 [facility] [place] [facility] [address] [id number] [place] [address]- 5838 May, 2014 [facility] [place] [facility] [address] [facility] [id number] [place] [address]- 9317 May, 2014 [facility] [place] [facility] [address] [facility] [id number] [place] [address]- 7256 May, 2014 [facility] [place] [facility] [address] [id number] [place] [address]- 2586 Apr, [facility] [place] [facility] [address] [facility] [id number] [place] [address]- 3890 Mar, [facility] [place] [facility] [address] [facility] [id number] [place] [address]- 5575 Mar, [facility] [place] [facility] [address] [id number] [place] [address]- 2803 Mar, [facility] [place] [facility] [address] [id number] [place] [address]- 7724 Mar, [facility] [place] [facility] [address] [id number] [place] [address]- 6250 Mar, [facility] [place] [facility] [address] [facility] [id number] [place] [address]- 4046 Mar, [facility] [place] [facility] [address] [facility] [id number] [place] [address]- 3315 Mar, [facility] [place] [facility] [address] [id number] [place] [address]- 4584 Mar, [facility] [place] [facility] [address] [id number] [place] [address]- 1753 Mar, [facility] [place] [facility] [address] [id number] [place] [address]- 5716 Feb, [facility] [place] [facility] [address] [id number] [place] [address]- 9656 Feb, [facility] [place] [facility] [address] [id number] [place] [address]- 4309 Feb, [facility] [place] [facility] [address] [id number] [place] [address]- 0931 Feb, [facility] [place] [facility] [address] [id number] [place] [address]- 4523 Feb, [facility] [place] [facility] [address] [id number] [place] [address]- 0195 Feb, [facility] [place] [facility] [address] [id number] [place] [address]- 8352 Feb, [facility] [place] [facility] [address] [id number] [place] [address]- 3356 Feb, [facility] [place] [facility] [address] [id number] [place] [address]- 0377 Jan, [facility] [place] [facility] [address] [id number] [address]- 7811 Jan, [facility] [place] [facility] [address] [id number] [place] [address]- 8443 Jan, [facility] [place] [facility] [address] [id number] [place] [address]- 2143 16 Jan, 2014 [facility] [place] [facility] [address] [id number], [place] [address]- 5898 15 Jan, 2014 [facility] [place] [facility] [address] [id number], [place] [address]- 8125 15 Jan, 2014 [facility] [place] [facility] [address] [id number] [place] [address]- 8878 14 Jan, 2014 [facility] [place] [facility] [address] [id number] [place] [address]- 3333 14 Jan, 2014 [facility] [place] [facility] [address] [id number] [place] [address]- 5131 14 Jan, 2014 [facility] [place] [facility] [address] [id number] [place] [address]- 8891 14 Jan, 2014 [facility] [place] [facility] [address] [id number] [place] [address]- 6316 18 Dec, 2013 [facility] [place] [facility] [address] [id number] [place] [address]- 8305 18 Dec, 2013 [facility] [place] [facility] [address] [id number] [place] [address]- 5749 10 Dec, 2013 [facility] [place] [facility] [address] [id number] [place] [address]- 9878 10 Dec, 2013 [facility] [place] [facility] [address] [id number] [place] [address]- 5137 Nov, [facility] [place] [facility] [address] [id number] [place] [address]- 2990 Nov, [facility] [place] [facility] [address] [id number] [place] [address]- 2773 Nov, [facility] [place] [facility] [address] [id number] [place] [address]- 7114 Nov, [facility] [place] [facility] [address] [id number] [place] [address]- 6152 Nov, [facility] [place] [facility] [address] [id number] [place] [address]- 1210 Oct, [facility] [place] [facility] [address] [id number] [place] [address]- 9706 Oct, [facility] [place] [facility] [address] [id number] [place] [address]- 8317 Oct, [facility] [place] [facility] [address] [id number] [place] [address]- 2145 Oct, [facility] [place] [facility] [address] [id number] [place] [address]- 5388 Sep, [facility] [place] [facility] [address] [id number] [place] [address]- 5256 Sep, [facility] [place] [facility] [address] [id number] [place] [address]- 1014 Sep, [facility] [place] [facility] [address] [id number] [place] [address]- 9669 Sep, [facility] [place] [facility] [address] [id number] [place] [address]- 4683 Sep, [facility] [place] [facility] [address] [id number] [place] [address]- 2074 Sep, [facility] [place] [facility] [address] [id number] [place] [address]- 5000 Sep, [facility] [place] [facility] [address] [id number] [place] [address]- 9790 Sep, [facility] [place] [facility] [address] [id number] [place] [address]- 5678 August, [facility] [place] [facility] [address] [id number] [place] [address]- 9563 August, [facility] [place] [facility] [address] [id number] [place] [address]- 0671 August, [facility] [place] [facility] [address] [id number] [place] [address]- 2710 August, [facility] [place] [facility] [address] [id number] [place] [address]- 1017 August, [facility] [place] [facility] [address] [id number] [place] [address]- 8636 August, [facility] [place] [facility] [address] [id number] [place] [address]- 7064 August, [facility] [place] [facility] [address] [id number] [place] [address]- 4976 Jul, [facility] [place] [facility] [address] [id number] [place] [address]- 6501 Jul, [facility] [place] [facility] [address] [id number] [place] [address]- 3583 Jul, [facility] [place] [facility] [address] [id number] [place] [address]- 6854 Jul, [facility] [place] [facility] [address] [id number] [place] [address]- 0660 Jul, [facility] [place] [facility] [address] [id number] [place] [address]- 5314 Jul, [facility] [place] [facility] [address] [id number] [place] [address]- 1235 Jul, [facility] [place] [facility] [address] [id number] [place] [address]- 6729 Jul, [facility] [place] [facility] [address] [id number] [place] [address]- 9834 Jul, [facility] [place] [facility] [address] [id number] [place] [address]- 8040 Jul, [facility] [place] [facility] [address] [id number] [place] [address]- 8948 Jul, [facility] [place] [facility] [address] [id number] [place] [address]- 3144 Jul, [facility] [place] [facility] [address] [id number] [place] [address]- 9355 Jun, [facility] [place] [facility] [address] [id number] [place]- [address]755 Jun, [facility] [place] [facility] [address] [id number] [place] [address]- 1530 Jun, [facility] [place] [facility] [address] [id number] [place] [address]- 7020 Jun, [facility] [place] [facility] [address] [id number] [place] [address]- 1474 Jun, [facility] [place] [facility] [address] [id number] [place] [address]- 6317 May, [facility] [place] [facility] [address] [id number] [place] [address]- 9619 May, [facility] [place] [facility] [address] [id number] [place] [address]- 5781 May, [facility] [place] [facility] [address] [id number] [place] [address]- 5554 May, [facility] [place] [facility] [address] [facility] [id number] [place] [address]- 4397 May, [facility] [place] [facility] [address] [id number] [place] [address]- 6552 May, [facility] [place] [facility] [address] [facility] [id number] [place] [address]- 8071 May, [facility] [place] [facility] [address] [facility] [id number] [place] [address]- 2964 May, [facility] [place] [facility] [address] [facility] [id number] [place] [address]- 1838 Mar, [facility] [place] [facility] [address] [id number] [place] [address]- 2491 Mar, [facility] [place] [facility] [address] [id number] [place] [address]- 2220 Mar, [facility] [place] [facility] [address] [facility] [id number] [place] [address]- 7926 Mar, [facility] [place] [facility] [address] [facility] [id number] [place] [address]63 Mar, [facility] [place] [facility] [address] [id number] [place] [address]- 1747 Mar, [facility] [place] [facility] [address] [id number] [place] [address]- 9015 Feb, [facility] [place] [facility] [address] [id number] [place] [address]- 4979 Feb, [facility] [place] [facility] [address] [id number] [place] [address]- 6016 Jan, [facility] [place] [facility] [address] [id number] [place] [address]- 6767 Jan, [facility] [place] [facility] [address] [id number] [place] [address]- 0561 Jan, [facility] [place] [facility] [address] [id number] [place] [address]- 4067 Jan, [facility] [place] [facility] [address] [id number], [place] [address]- 5243 Jan, [facility] [place] [facility] [address] [id number], [place] [address]- 0068 Jan, [facility] [place] [facility] [address] [id number], [place] [address]- 3981 Jan, [facility] [place] [facility] [address] [id number], [place] [address]- 4991 Jan, [facility] [place] [facility] [address] [id number], [place] [address]- 4659 08 Jan, 2013 [facility] [place] [facility] [address] [id number], [place] [address]- 1868 Jan, [facility] [place] [facility] [address] [id number], [place] [address]- 6592 16 Dec, 2012 [facility] [place] [facility] [address] [id number], [place] [address]- 6681 Nov, [facility] [place] [facility] [address] [id number] [address]- 3830 Nov, [facility] [address] [facility] [id number], [place] [address]- 5480 Nov, [facility] [address] [id number] [address]- 0285 Oct, [facility] [id number] [address]- 4487 Oct, [facility] [address] [facility] [id number], [place] [address]- 6749 August, [facility] [id number] [address]- 6340 Apr, [facility] [address] [id number] [address]- 2616 Apr, [facility] [address] [address] Feb, [facility] [id number] [address]- 8756 Feb, [facility] [id number] 8526 Dec, [facility] [address] [address]- 8780 Dec, [facility] [address] [id number] 5274 Oct, [facility] [address] [id number] 8728 Oct, [facility] [address] [address]36 Oct, [facility] [address] [id number] [address] Jul, IMMUNIZATIONS Vaccine Route Administration Date Status SOLUMEDROL (UP TO 125 MG) IM Intramuscular July 14, 2017 Administered SOCIAL HISTORY Never Assessed REASON FOR VISIT Shortness of breath upon excertion started 2 weeks ago Abdulaziz CHO PLAN OF CARE Activity Details Follow Up keep scheduled appt with PCP Reason: VITAL SIGNS Height 57 in 2017-07-14 Weight 226.4 lbs 2017-07-14 Temperature 97.7 degrees Fahrenheit 2017-07-14 Heart Rate 89 bpm 2017-07-14 Respiratory Rate 24 2017-07-14 Oximetry 89 % 2017-07-14 BMI 48.99 kg/m2 2017-07-14 Blood pressure systolic 130 mmHg 2017-07-14 Blood pressure diastolic 90 mmHg 2017-07-14 MEDICATIONS Medication Instructions Dosage Frequency Start Date End Date Duration Status Singulair 10 MG Orally Once a day 1 tablet in the evening 24h Jan, 30 day(s) Active Omeprazole 40 MG Orally Once a day 1 capsule 24h Active Sumatriptan Succinate 50 mg Orally Twice a day 1 tablet as needed for migraine- may repeat in 2 hours if needed 12h May, 10 days Active Spironolactone 50MG Orally Once a day 1 tablet 24h Active Januvia 100MG Orally Once a day 1 tablet 24h 30 days Active MethylPREDNISolone 4 MG Orally daily as directed 24h Jun, Jun, 7 days Active Loxapine Succinate 25 MG Orally 4 times a day PRN 1 capsule 30 days Active HydrOXYzine HCl 50 mg TAKE ONE TO TWO TABLETS BY MOUTH EVERY 8 HOURS NEEDED FOR 30 DAYS Active Incontinence Supply Disposable SUPPLIES as directed Feb, 30 days Active Levothyroxine Sodium 150 MCG Orally Once a day 1 tablet 24h 30 days Active Restasis 0.05 % instill 1 drop into affected eye(s) by ophthalmic route 2 times per day Oct, Active Estradiol 1MG Orally Once a day 1 tablet 24h Active Plaquenil 200 mg Orally Once a day 1 tablet with food or milk 24h Active Lisinopril 2.5 MG Orally Once a day 1 tablet 24h Nov, Active Norvasc 10 mg Orally Once a day 1 tablet 24h Active Ibuprofen 800MG TAKE ONE TABLET BY MOUTH THREE TIMES DAILY NEEDED Active Zoloft 100 mg Orally Once a day 1 tablet 24h Mar, Active Breo Ellipta 100-25 INHALE ONE PUFF BY MOUTH ONCE DAILY AT THE SAME TIME EACH DAY Active Ventolin HFA 108 (90 Base) MCG/ACT Inhalation every 4 hrs 2 puffs as needed 4h Feb, Active Tizanidine HCl 4 MG Orally 3 times a day 1 1/2 tablets 8h Active Neurontin 600 mg Orally 2 times a day 1 tablet 12h 30 days Active Ambien 5 mg Orally Once a day 1 tablet at bedtime 24h Oct, 28 days Active Metformin HCl 1000MG Orally 2 times a day TAKE ONE TABLET BY MOUTH TWICE DAILY 12h 30 days Active Myrbetriq 50 MG Orally Once a day 1 tablet 24h Active Sertraline HCl 50 mg TAKE ONE TABLET BY MOUTH ONCE DAILY (TAKE WITH 100MG TABLET) Active Pravastatin Sodium 20 MG Orally Once a day 1 tablet 24h Active Invega Sustenna 234 MG/1.5ML Intramuscular Once a month, on the 10th of every month 1.5 ml Active RESULTS Name Result Date Reference Range Xray : Chest 2 View (IN HOUSE) 2017-07-14 PROCEDURES Procedure Date Ordered Result Body Site NEB/MDI RX INITIAL 2017-07-14 N/A X-RAY EXAM CHEST 2 VIEWS July 14, 2017 THER/PROPH/DIAG INJ, SC/IM July 14, 2017 [facility] VISIT ESTABLISHED PATIENT July 14, 2017 NEB/MDI RX INITIAL July 14, 2017 SOLUMEDROL (UP TO 125 MG) July 14, 2017 INSTRUCTIONS MEDICATIONS ADMINISTERED No [...] illness , last one in [facility] 4 years ago
--- OUTSIDE RECORDS SUMMARY | 2018-09-02 13:52 | XMS REPORT ---
Author Author JORGE COOK [facility] Address Unknown Care Team Providers Care Circle Beveler Name Role Phone JORGE COOK Unavailable PROBLEMS Type Condition ICD9-CM Code SPC99-VM Code Onset Dates Condition Status SNOMED Code Problem OAB (overactive bladder) N32.81 Active 388132972 Problem Depression with anxiety F41.8 Active 160801327 Problem Other seasonal allergic rhinitis J30.2 Active 422516640 Problem Chronic obstructive pulmonary disease, unspecified COPD type J44.9 Active 03559459 Problem Tobacco abuse Z72.0 Active 446324284 Problem Morbid obesity due to excess calories E66.01 Active 356289051 Problem Dyslipidemia E78.5 Active 516939544 Problem Hypothyroidism (acquired) E03.9 Active 197743791 Problem Essential hypertension I10 Active 07891324 Problem Diabetic polyneuropathy associated with type 2 diabetes mellitus E11.42 Active 689821465 Problem Type 2 diabetes mellitus with diabetic neuropathic arthropathy, 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 Active 187008300 Problem Type 2 diabetes mellitus without complication, without long-term current use of insulin E11.9 Active 099617019 Problem Paranoid schizophrenia F20.0 Active 97073485 Problem Chronic pain syndrome G89.4 Active 277426893 Problem Migraine without aura and without status migrainosus, not intractable G43.009 Active 017061892 Problem Gastroesophageal reflux disease, esophagitis presence not specified K21.9 Active 686427582 Problem Seasonal allergic rhinitis due to pollen J30.1 Active 17676557 Problem COPD exacerbation J44.1 Active 967397104 Problem Seasonal allergic rhinitis due to other allergic trigger J30.89 Active 071661291 Problem Schizoaffective disorder, depressive type F25.1 Active 50784883 Problem History of lupus Z87.39 Active 753152678 Problem Gastroesophageal reflux disease without esophagitis K21.9 Active 594052961 Problem Menopausal syndrome (hot flashes) N95.1 Active 366200540 Problem Other allergic rhinitis J30.89 Active 898441655 Problem Primary insomnia F51.01 Active 4761062 Problem DM neuro manif type II E11.49 Active 45638209 ALLERGIES Substance Reaction Event Type Date Status Sulfamethoxazole-Trimethoprim Unknown Drug Allergy Jun, Active Penicillin V Potassium Unknown Drug Allergy Jun, Active ENCOUNTERS Encounter Location Date Diagnosis [place] [address] [address] Nov, [place] [address] [place] [id number] [place] [address] 29295- 3777 Nov, [place] [address] [place] [id number] [place] [address] 40841- 3666 Oct, [address] [id number] [address] Oct Chronic pain syndrome G89.4 and Schizoaffective disorder, depressive type F25.1 [place] [address] [place] [id number] [place] [address] 52315- 8600 Oct, Chronic pain syndrome G89.4 and Schizoaffective disorder, depressive type F25.1 [place] [address] [place] [id number] [place] [address] 34720- 7807 Oct, Type 2 diabetes mellitus without complication, without long- term current use of insulin E11.9 [place] [id number] [place] [address] 30255- 1039 12 Oct, 2017 Essential hypertension I10 and DM neuro manif type II E11.49 [place] [address], [place] [address] Oct, [place] [address] [place] [id number] [place] [address] 46520- 2611 Oct, Schizoaffective disorder, depressive type F25.1 and BMI 45.0 -49.9, adult Z68.42 [place] [address] [place] [id number] [place] [address] 24719- 4114 Oct, [place] [address] [place] [id number] [place] [address] 14568- 1827 Oct, Paranoid schizophrenia F20.0 [place] [address] [place] [id number] [place] [address] 83119- 8089 10 Oct, 2017 Type 2 diabetes mellitus with diabetic neuropathic arthropathy, 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 ; Essential hypertension I10 ; Hypothyroidism (acquired) E03.9 ; Chronic obstructive pulmonary disease, unspecified COPD type J44.9 and Diabetic polyneuropathy associated with type 2 diabetes mellitus E11.42 [place] [address] [place] [id number] [place] [address] 03576- 3058 Sep, Paranoid schizophrenia F20.0 [place] [address] 55942- 2837 Sep, Paranoid schizophrenia F20.0 and BMI 45.0-49.9, adult Z68.42 [place] [address] 93872- 9142 Sep, Schizoaffective disorder, depressive type F25.1 [place] [address] [place] [id number] [place] [address] 67087- 3816 Sep, [place] [address] [place] [id number] [place] [address] 75890- 1173 Sep, Paranoid schizophrenia F20.0 [place] [address] [place] [id number] [place] [address] 96681- 4308 Sep, [facility] [address] [place] [id number] [place] [address] 59207- 2176 Sep, Hypothyroidism (acquired) E03.9 [facility] [address] [place] [id number] [place] [address] 36412- 5825 Sep, [place] [address] [place] [id number] [place] [address] 00697- 2750 August, Schizoaffective disorder, depressive type F25.1 [facility] [address] [place] [id number] [place] [address] 93823- 5556 August, [facility] [address] [place] [id number] [place] [address] 68359- 0781 August, [facility] [address] 12523- 6650 August, [place] [address] 69087- 4172 August, Paranoid schizophrenia F20.0 [place] [address] 23395- 8942 August, History of lupus Z87.39 and Chronic pain syndrome G89.4 [place] [address] 97679- 5354 August, [facility] [address] 53129 -4528 August, Seasonal allergic rhinitis, unspecified trigger J30.2 and BMI 45.0-49.9, adult Z68.42 [place] [address] 87605- 8299 Jul, Schizoaffective disorder, depressive type F25.1 [place] [address] 31902- 9937 Jul, [place] [address] 14398- 0409 Jul, Hypothyroidism (acquired) E03.9 [place] [address] 91806- 9661 Jul, Chronic obstructive pulmonary disease, unspecified COPD type J44.9 and Type 2 diabetes mellitus without complication, without long-term current use of insulin E11.9 [place] [address] [place] [id number] [place] [address] 68402- 1762 Jul, Paranoid schizophrenia F20.0 [place] [address] 39735- 9478 Jun, Hypothyroidism (acquired) E03.9 and Seasonal allergic rhinitis due to pollen J30.1 [facility] [address] [place] [id number] [place] [address] 57005 -6852 Jun, Shortness of breath at rest R06.02 ; COPD exacerbation J44.1 and BMI 45.0-49.9, adult Z68.42 [facility] [address] 45945- 6786 Jun, [facility] [address] 97532- 3106 Jun, Paranoid schizophrenia F20.0 ; Depression with anxiety F41.8 and BMI 45.0-49.9, adult Z68.42 [facility] [address] 26234- 9687 Jun, Schizoaffective disorder, depressive type F25.1 [facility] [address] [id number] Jun, Dental caries K02.9 [facility] [address] 05598- 0986 Jun, Paranoid schizophrenia F20.0 [facility] [address] 32416- 7616 May, Migraine without aura and without status migrainosus, not intractable G43.009 ; DM neuro manif type II E11.49 and Type 2 diabetes mellitus without complication, without long-term current use of insulin E11.9 [facility] [address] [place] [id number] [place] [address] 16205- 1521 May, Migraine without aura and without status migrainosus, not intractable G43.009 [facility] [address] 36838- 7692 May, Depression with anxiety F41.8 [facility] [address] [id number] May, [place] [address] [place] [address] 13854- 9203 May, [place] [address] [place] [id number] [place] [address] 59892- 1050 May, [place] [address] [place] [id number] [place] [address] 65741- 0861 May, Hypothyroidism (acquired) E03.9 [place] [address] 61454- 5837 May, Paranoid schizophrenia F20.0 [place] [address] 13178- 0302 May, Type 2 diabetes mellitus without complication, [...] N32.81 and Controlled substance agreement signed Z79.899 [place] [address] [place] [id number] [place] [address] 87170- 7764 May, Controlled substance agreement signed Z79.899 [place] [address] [place] [id number] [place] [address] 63702- 4827 Apr, [facility] [address] [place] [id number] [place] [address] [id number] Apr, Dental examination Z01.20 [place] [address] [place] [id number] [place] [address] 69475- 0100 Apr, Paranoid schizophrenia F20.0 [place] [address] [place] [id number] [place] [address] 64415- 0614 Apr, Hypertension, unspecified type I10 [facility] [address] [place] [id number] [place] [address] 05736- 1956 Apr, Paranoid schizophrenia F20.0 [facility] [address] [place] [id number] [place] [address] 67604- 2826 Apr, [facility] [address] [place] [id number] [place] [address] 03068- 3512 Apr, Tobacco abuse Z72.0 [facility] [address] [place] [id number] [place] [address] 53307- 8936 Apr, [facility] [address] [place] [id number] [place] [address] 54709- 6452 Mar, [facility] [address] [place] [id number] [place] [address] 25642- 9597 Mar, Paranoid schizophrenia F20.0 and BMI 45.0-49.9, adult Z68.42 [facility] [address] [place] [id number] [place] [address] 47796- 9638 Mar, Schizoaffective disorder, depressive type F25.1 [place] [address] [place] [id number] [place] [address] 03302- 3936 Mar, [facility] [address] [place] [id number] [place] [address] 09334- 8416 Mar, Hypothyroidism, unspecified type E03.9 [facility] [address] [place] [id number] [place] [address] 25427- 2681 Mar, Schizoaffective disorder, depressive type F25.1 [facility] [address] [place] [id number] [place] [address] 32527 -1246 Feb, Gastroenteritis K52.9 and BMI 45.0-49.9, adult Z68.42 [facility] [address] [place] [id number] [place] [address] 58543- 8076 Feb, [facility] [address] [place] [id number] [place] [address] 48369- 6177 Feb, [facility] [address] 51565- 5894 Feb, [facility] [address] 54456- 7152 Feb, [place] [address] 78805- 5251 Feb, Paranoid schizophrenia F20.0 [place] [address] 81523- 6805 Feb, Gastroesophageal reflux disease without esophagitis K21.9 ; Other seasonal allergic rhinitis J30.2 ; Other allergic rhinitis J30.89 ; Tobacco abuse Z72.0 and BMI 40.0-44.9, adult Z68.41 [place] [address] 63280- 6949 Feb, Onychomycosis B35.1 ; Callus of foot L84 and DM neuro manif type II E11.49 [place] [address] 01565- 9468 Jan, Chronic allergic rhinitis J30.9 [place] [address] [place] [id number] [place] [address] 63474- 8907 Jan, [place] [address] [place] [id number] [place] [address] 57947- 6726 Jan, Schizoaffective disorder, depressive type F25.1 [place] [address] [place] [id number] [place] [address] 95834- 7970 Jan, [facility] [address] 76988 -5281 Jan, Sore throat J02.9 and Seasonal allergic rhinitis due to other allergic trigger J30.89 [place] [address] 31908- 6985 Jan, [place] [address] [place] [id number] [place] [address] 84109- 2060 Jan, [facility] [address] [place] [id number] [place] [address] 74273 -6992 Jan, Chronic allergic rhinitis J30.9 [facility] [address] [place] [id number] [place] [address] 10397- 6737 Dec, Paranoid schizophrenia F20.0 ; Primary insomnia F51.01 and Schizoaffective disorder, depressive type F25.1 [facility] [address] [place] [id number] [place] [address] 10538- 9037 21 Dec, 2016 Chronic pain syndrome G89.4 ; Cervicalgia of occipito- atlanto-axial region M54.2 ; Menopausal syndrome (hot flashes) N95.1 and Encounter for immunization Z23 [facility] [address] [place] [id number] [place] [address] 86009- 1030 14 Dec, 2016 [facility] [address] [place] [id number] [place] [address] 36978- 8975 Dec, [facility] [address] [place] [id number] [place] [address] 07681- 2930 08 Dec, 2016 Paranoid schizophrenia F20.0 [facility] [address] [place] [id number] [place] [address] 38066- 9395 Dec, Schizoaffective disorder, depressive type F25.1 [facility] [address] [place] [id number] [place] [address] 10343- 3568 Nov, Hypothyroidism, unspecified type E03.9 [facility] [address] [place] [id number] [place] [address] 34433 -6124 Nov, Acute seasonal allergic rhinitis due to other allergen J30.89 [facility] [address] [place] [id number] [place] [address] 54486- 1966 Nov, [facility] [address] [place] [id number] [place] [address] 51586- 7073 Nov, Hypothyroidism, unspecified type E03.9 and Other elevated white blood cell (WBC) count D72.828 [place] [address] [place] [id number] [place] [address] 27270- 1181 Nov, Schizoaffective disorder, depressive type F25.1 [place] [address] [place] [id number] [place] [address] 67128- 3059 Nov, Paranoid schizophrenia F20.0 [place] [address] 68284- 0330 Nov, Type 2 diabetes mellitus without complication, without long- term current use of insulin E11.9 ; Morbid obesity due to excess calories E66.01 and Chronic pain syndrome G89.4 [place] [address] [place] [id number] [place] [address] 62300- 7295 Oct, Paranoid schizophrenia F20.0 [place] [address] [place] [id number] [place] [address] 78661- 2545 Oct, [place] [address] [place] [id number] [place] [address] 60622- 2587 Oct, Schizoaffective disorder, depressive type F25.1 [place] [address] [place] [id number] [place] [address] 39667- 9329 Oct, Hypothyroidism, unspecified type E03.9 and Other elevated white blood cell (WBC) count D72.828 [place] [address] [place] [id number] [place] [address] 92035- 9925 Oct, Morbid obesity due to excess calories E66.01 ; Chronic obstructive pulmonary disease, unspecified COPD type J44.9 ; History of lupus Z87.39 ; Hypothyroidism, unspecified type E03.9 ; Gastroesophageal reflux disease without esophagitis K21.9 ; Primary insomnia F51.01 and Chronic pain syndrome G89.4 [place] [address] [place] [address] 55673- 9249 Sep, [place] [address] [place] [id number] [place] [address] 41298- 3756 Sep, [facility] [address], [place] [address]- 9568 Sep, [facility] [address] [place] [id number] [place] [address] 48934- 1169 Sep, Paranoid schizophrenia F20.0 [facility] [address] [place] [id number] [place] [address] 10146- 6234 Sep, [facility] [address] [place] [id number] [place] [address] 20374- 3743 Sep, Paranoid schizophrenia F20.0 [facility] [address] [place] [id number] [place] [address] 16886- 6755 Sep, [facility] [address] [place] [id number] [place] [address] 07662- 9261 August, Paranoid schizophrenia F20.0 [facility] [address] [place] [id number] [place] [address] 55624- 9454 Jul, [facility] [address] [place] [id number] [place] [address] 26871- 6956 Jul, Type 2 diabetes mellitus without complication, without long- term current use of insulin E11.9 ; Morbid obesity due to excess calories E66.01 ; Depression with anxiety F41.8 ; Hypothyroidism, unspecified type E03.9 ; Seasonal allergic rhinitis due to other allergic trigger J30.89 ; Pain, dental K08.89 and Gastroesophageal reflux disease without esophagitis K21.9 [facility] [address] [id number] Jul, Dental examination Z01.20 [facility] [address] [place] [id number] [place] [address] 23766- 3562 Jul, Paranoid schizophrenia F20.0 [facility] [address] [place] [id number] [place] [address] 57909- 3261 Jun, Paranoid schizophrenia F20.0 and Depression with anxiety F41.8 [facility] [address] [place] [id number] [place] [address] 70950- 0540 10 Jun, 2016 Paranoid schizophrenia F20.0 and Depression with anxiety F41.8 [place] [address] 24829- 6713 09 Jun, 2016 [place] [address] 47230- 4728 Jun, [facility] [address] 42504 -8662 Jun, Seasonal allergic rhinitis due to other allergic trigger J30.89 [facility] [address] 81560 -4069 May, Sore throat J02.9 ; Other viral agents as the cause of diseases classified elsewhere B97.89 and Acute upper respiratory infection, unspecified J06.[address] 77325- 0395 08 May, 2016 Paranoid schizophrenia F20.0 and Depression with anxiety F41.8 [place] [address] [place] [id number] [place] [address] 93780- 5223 Apr, Other seasonal allergic rhinitis J30.2 [place] [address] [place] [id number] [place] [address] 35741- 7637 Apr, Paranoid schizophrenia F20.0 and Depression with anxiety F41.8 [facility] [place] [id number] [place] [address] 74934 -5430 Apr, Bronchitis J40 and Sore throat J02.9 [place] [address] [place] [id number] [place] [address] 18924- 0469 Apr, Type 2 diabetes mellitus without complication, without long- term current use of insulin E11.9 [facility] [place] [id number] [place] [address] 69757 -4902 Apr, Bronchitis J40 [address] 17853- 4111 Apr, [place] [address] [place] [id number] [place] [address] 42784- 3691 Apr, [place] [address] [place] [id number] [place] [address] 64594- 3104 Mar, Type 2 diabetes mellitus without complication, [...] R60.9 and Other seasonal allergic rhinitis J30.2 [place] [address] [place] [id number] [place] [address] 55174- 5848 Mar, Paranoid schizophrenia F20.0 and Depression with anxiety F41.8 [place] [address] 87166- 4093 Feb, [place] [address] [place] [id number] [place] [address] 47034- 0183 Feb, [place] [address] [place] [id number] [place] [address] 21300- 2889 Feb, [place] [address] [place] [id number] [place] [address] 41035- 7200 Feb, [place] [address] [place] [id number] [place] [address] 28729- 7943 Feb, Type 2 diabetes mellitus without complication, without long- term current use of insulin E11.9 ; ARIAS on CPAP G47.33 and Preoperative evaluation to rule out surgical contraindication Z01.818 [place] [address] [place] [id number] [place] [address] 88397- 6907 Feb, Paranoid schizophrenia F20.0 and Depression with anxiety F41.8 [place] [address] [place] [id number] [place] [address] 10724- 1167 18 Jan, 2016 [facility] [address] [facility] [id number] [place] [address]- 8078 18 Jan, 2016 Paranoid schizophrenia F20.0 and Depression with anxiety F41.8 [facility] [address] [facility] [id number] [place] [address]- 7569 17 Jan, 2016 [facility] [address] [facility] [id number] [place] [address]- 8313 14 Jan, 2016 Muscle strain T14.8 [facility] [address] [facility] [id number] [place] [address]- 4669 10 Jan, 2016 Paranoid schizophrenia F20.0 [facility] [address] [facility] [id number] [place] [address]- 9381 07 Jan, 2016 [facility] [address] [facility] [id number] [place] [address]- 2501 05 Jan, 2016 Paranoid schizophrenia F20.0 and Depression with anxiety F41.8 [facility] [address] [facility] [id number] [place] [address]- 1633 05 Jan, 2016 [facility] [address] [facility] [id number] [place] [address]- 5256 Jan, [facility] [address] [facility] [id number] [place] [address]- 3685 28 Dec, 2015 [facility] [address] [facility] [id number] [place] [address]- 1306 23 Dec, 2015 Paranoid schizophrenia F20.0 [facility] [address] [facility] [id number] [place] [address]- 8108 16 Dec, 2015 Paranoid schizophrenia F20.0 and Depression with anxiety F41.8 [facility] [address] [facility] [id number] [place] [address]- 9237 31 Nov, 2015 [facility] [address] [facility] [id number] [place] [address]- 8039 24 Nov, 2015 Paranoid schizophrenia F20.0 [facility] [address] [place] [id number] [place] [address] 32643- 0283 Nov, Paranoid schizophrenia F20.0 and Depression with anxiety F41.8 [place] [address] [place] [id number] [place] [address] 21337- 9618 Nov, Type 2 diabetes mellitus without complication, without long- term current use of insulin E11.9 ; Paranoid schizophrenia F20.0 ; Chronic obstructive pulmonary disease, unspecified COPD type J44.9 ; Morbid obesity due to excess calories E66.01 and Parkinsonian tremor G20 [place] [address] [place] [id number] [place] [address] 27420- 3211 Nov, [place] [address] [place] [id number] [place] [address] 88652- 2487 Oct, Paranoid schizophrenia F20.0 [place] [address] [id number] [place] [address] [phone] Oct, Paranoid schizophrenia F20.0 [facility] [id number] [place] [address] [phone] Oct, Paranoid schizophrenia F20.0 and Depression with anxiety F41.8 [facility] [place] [id number] [place] [address] [phone] Oct, [place] [id number] [place] [address] [phone] Oct, Paranoid schizophrenia F20.0 and Depression with anxiety F41.8 [facility] [place] [id number] [place] [address] [id number] Oct, Nasal sore J34.89 [facility] [id number] [place] [address] [phone] Oct, Type 2 diabetes mellitus without complication, without long- term current use of insulin E11.9 ; Depression with anxiety F41.8 ; Hypothyroidism, unspecified type E03.9 and History of lupus Z87.39 [facility] [facility] [id number] [place] [address] 33262- 2546 Oct, [facility] [address] [address] Oct, Type 2 diabetes mellitus without complication, [...] edema R60.9 and History of lupus Z87.39 [facility] [id number] [place] [address] 42919- 4306 Feb, [facility] [id number] [place] [address] 86752- 8686 Jan, [facility] [id number] [place] [address] 74414- 4566 Jan, [facility] [id number] [place] [address] 35187- 8426 Jan, [facility] [address] [id number], [place] [address] 2546 Dec, [facility] [id number] [place] [address] 63990- 2546 Nov, [facility] [id number] [address] 2546 Nov, [facility] [id number] [place] [address] 45724- 6896 Oct, [facility] [id number] [address] 2546 Oct, [facility] [id number] [place] [address] 66055- 4066 Oct, [facility] [address] [facility] [id number] [place] [address] 4318 Sep, Allergic rhinitis 477.9 [facility] [address] [facility] [id number] [place] [address] 6035 Sep, Rhinitis, allergic 477.9 [facility] [address] [facility] [id number] [place] [address]- 7929 Sep, Rhinitis, allergic 477.9 [facility] [address] [id number] [place] [address]- 2654 Sep, [facility] [address] [id number] [place] [address]- 6790 August, [facility] [address] [facility] [id number] [place] [address]- 4034 August, [facility] [id number] [place] [address] 2590 August, [facility] [address] [facility] [id number] [place] [address]- 6511 Jul, [facility] [address] [facility] [id number] [place] [address]- 7819 14 Jul, 2014 [facility] [address] [facility] [id number] [place] [address]- 1185 Jul, [facility] [address] [id number] [place] [address]- 5878 16 Jun, 2014 [facility] [address] [facility] [id number] [place] [address]- 4076 16 Jun, 2014 [facility] [address] [facility] [id number] [place] [address]- 0952 Jun, [facility] [address] [facility] [id number] [place] [address]- 4179 Jun, [facility] [address] [facility] [id number] [place] [address]- 0023 Jun, [facility] [place] [facility] [address] [id number] [place] [address]- 3521 Jun, 2014 [facility] [place] [facility] [address] [id number] [place] [address]- 7090 Jun, 2014 [facility] [place] [facility] [address] [id number] [place] [address]- 6069 Jun, 2014 [facility] [place] [facility] [address] [id number] [place] [address]- 3841 May, 2014 [facility] [place] [facility] [address] [id number] [place] [address]- 0768 May, 2014 [facility] [place] [facility] [address] [id number] [place] [address]- 6777 May, 2014 [facility] [place] [facility] [address] [id number] [place] [address]- 0992 May, 2014 [facility] [place] [facility] [address] [id number] [place] [address]- 3671 Apr, [facility] [place] [facility] [address] [id number] [place] [address]- 3883 Mar, [facility] [place] [facility] [address] [id number] [place] [address]- 4646 Mar, [facility] [place] [facility] [address] [facility] [id number] [place] [address]- 1757 Mar, [facility] [place] [facility] [address] [id number] [place] [address]- 1327 Mar, [facility] [place] [facility] [address] [id number] [place] [address]- 4195 Mar, [facility] [place] [facility] [address] [id number] [place] [address]- 2832 Mar, [facility] [place] [facility] [address] [id number] [place] 6[address] Mar, [facility] [place] [facility] [address] [id number], [place] [address]- 1868 Mar, [facility] [place] [facility] [address] [id number] [place] [address]- 5374 Mar, [facility] [place] [facility] [address] [id number] [place] [address]- 0512 Feb, [facility] [place] [facility] [address] [id number] [place] [address]- 7149 Feb, [facility] [place] [facility] [address] [id number] [place] [address]- 1164 Feb, [facility] [place] [facility] [address] [id number] [place] [address]- 1081 Feb, [facility] [place] [facility] [address] [id number] [place] [address]- 3367 Feb, [facility] [place] [facility] [address] [id number] [place] [address]- 4517 Feb, [facility] [place] [facility] [address] [id number] [place] [address]- 3969 Feb, [facility] [place] [facility] [address] [id number] [place] [address]- 6023 Feb, [facility] [place] [facility] [address] [facility] [id number] [place] [address]- 6307 Jan, [facility] [place] [facility] [address] [id number], [place] [address]- 8851 Jan, [facility] [place] [facility] [address] [id number], [place] [address]- 1299 16 Jan, 2014 [facility] [place] [facility] [address] [id number] [place] [address]- 3767 16 Jan, 2014 [facility] [place] [facility] [address] [id number], [place] [address]- 2807 15 Jan, 2014 [facility] [place] [facility] [address] [facility] [id number], [place] [address]- 5518 15 Jan, 2014 [facility] [place] [facility] [address] [id number] [place] [address]- 8690 14 Jan, 2013 [facility] [place] [facility] [address] [id number] [place] [address]- 8079 14 Jan, 2014 [facility] [place] [facility] [address] [id number] [place] [address]- 1957 14 Jan, 2014 [facility] [place] [facility] [address] [id number] [place] [address]- 1984 14 Jan, 2014 [facility] [place] [facility] [address] [id number] [place] [address]- 9968 18 Dec, 2013 [facility] [place] [facility] [address] [id number] [place] [address]- 1109 18 Dec, 2013 [facility] [place] [facility] [address] [id number] [place] [address]- 0775 10 Dec, 2013 [facility] [place] [facility] [address] [id number] [place] [address]- 8363 10 Dec, 2013 [facility] [place] [facility] [address] [id number] [place] [address]- 3508 Nov, [facility] [place] [facility] [address] [id number] [place] [address]- 6031 Nov, [facility] [place] [facility] [address] [id number] [place] [address]- 2598 Nov, [facility] [place] [facility] [address] [id number] [place] [address]- 7482 Nov, [facility] [place] [facility] [address] [id number] [place] [address]- 9926 Nov, [facility] [place] [facility] [address] [id number] [place] [address]- 8280 Oct, [facility] [place] [facility] [address] [id number] [place] [address]- 7620 Oct, [facility] [place] [facility] [address] [id number] [place] [address]- 0324 Oct, [facility] [place] [facility] [address] [id number] [place] [address]- 5986 Oct, [facility] [place] [facility] [address] [id number] [place] [address]- 5096 Sep, [facility] [place] [facility] [address] [id number] [place] [address]- 5884 Sep, [facility] [place] [facility] [address] [id number] [place] [address]- 0779 Sep, [facility] [place] [facility] [address] [id number] [place] [address]- 4791 Sep, [facility] [place] [facility] [address] [id number] [place] [address]- 2658 Sep, [facility] [place] [facility] [address] [id number] [place] [address]- 1992 Sep, [facility] [place] [facility] [address] [id number] [place] [address]- 7185 Sep, [facility] [place] [facility] [address] [id number] [place] [address]- 5155 Sep, [facility] [place] [facility] [address] [id number] [place] [address]- 6992 August, [facility] [place] [facility] [address] [id number] [place] [address]- 6048 August, [facility] [place] [facility] [address] [id number], [place] [address]- 9949 August, [facility] [place] [facility] [address] [id number] [place] [address]- 9173 August, [facility] [place] [facility] [address] [id number] [place] [address]- 7753 August, [facility] [place] [facility] [address] [id number] [place] [address]- 9441 August, [facility] [place] [facility] [address] [id number] [place] [address]- 6087 August, [facility] [place] [facility] [address] [id number] [place] [address]- 1557 Jul, [facility] [place] [facility] [address] [id number] [place] [address]- 8739 Jul, [facility] [place] [facility] [address] [id number] [place] [address]- 9857 Jul, [facility] [place] [facility] [address] [id number] [place] [address]- 7360 Jul, [facility] [place] [facility] [address] [id number] [place] [address]- 2288 Jul, [facility] [place] [facility] [address] [id number] [place] [address]- 7329 Jul, [facility] [place] [facility] [address] [id number] [place] [address]- 9667 Jul, [facility] [place] [facility] [address] [id number] [place] [address]- 8634 Jul, [facility] [place] [facility] [address] [id number] [place] [address]- 5867 Jul, [facility] [place] [facility] [address] [id number] [place] [address]- 7459 Jul, [facility] [place] [facility] [address] [id number] [place] [address]- 2768 Jul, [facility] [place] [facility] [address] [id number] [place] [address]- 9438 Jul, [facility] [place] [facility] [address] [id number] [place]551 Jun, [facility] [place] [facility] [address] [id number] [place] [address]- 7558 Jun, [facility] [place] [facility] [address] [id number] [place] 4757 Jun, [facility] [place] [facility] [address] [id number] [place] [address]- 1230 Jun, [facility] [place] [facility] [address] [id number] [place] [address]- 5097 Jun, [facility] [place] [facility] [address] [id number] [place] [address]- 5918 May, [facility] [place] [facility] [address] [id number] [place] [address]- 1660 May, [facility] [place] [facility] [address] [id number] [place] [address]- 9803 May, [facility] [place] [facility] [address] [id number] [place] [address]- 9797 May, [facility] [place] [facility] [address] [id number] [place] [address]- 7811 May, [facility] [place] [facility] [address] [id number] [place] [address]- 1841 May, [facility] [place] [facility] [address] [id number] [place] [address]- 5885 May, [facility] [place] [facility] [address] [facility] [id number] [place] [address]- 7533 May, [facility] [place] [facility] [address] [id number] [place] [address]- 9727 Mar, [facility] [place] [facility] [address] [id number] [place] [address]- 8831 Mar, [facility] [place] [facility] [address] [id number] [place] [address]- 0316 Mar, [facility] [place] [facility] [address] [id number] [place] [address]- 9400 Mar, [facility] [place] [facility] [address] [facility] [id number] [place] [address]- 3027 Mar, [facility] [place] [facility] [address] [id number] [place] [address]- 8553 02 Mar, 2013 [facility] [address] [id number] [place] [address]- 0768 Feb, [facility] [place] [facility] [address] [id number] [place] [address]- 9768 Feb, [facility] [place] [facility] [address] [id number] [place] [address]- 0674 Jan, [facility] [place] [facility] [address] [id number] [place] [address]- 9130 Jan, [facility] [place] [facility] [address] [id number] [place] 6238 Jan, [facility] [place] [facility] [address] [id number] [place] [address]- 3377 Jan, [facility] [place] [facility] [address] [id number] [place] [address]- 4312 Jan, [facility] [place] [facility] [address] [id number] [place] [address]- 6667 Jan, [facility] [place] [facility] [address] [id number] [place] [address]- 1927 Jan, [facility] [place] [facility] [address] [id number] [place] [address]- 9134 Jan, [facility] [place] [facility] [address] [id number] [place] [address]- 3137 Jan, [facility] [place] [facility] [address] [id number] [place] [address]- 6337 Jan, [facility] [place] [facility] [address] [id number] [place] [address]- 9582 16 Dec, 2012 [facility] [place] [facility] [address] [id number] [place] [address]- 5792 Nov, [facility] [place] [facility] [address] [id number], [place] [address]- 5883 Nov, [facility] [address] [facility] [id number], [place] [address]- 2640 Nov, [facility] [address] [facility] [id number], [place] [address]- 4273 Oct, [facility] [address] [facility] [id number], [place] [address]- 1701 Oct, [facility] [address], [place] [address]- 0976 August, [facility] [address] [facility] [id number] [place] [address]- 7487 Apr, [facility] [address] [place] [address]- 7651 Apr, [facility] [address], [place] [address]- 5856 Feb, [facility] [address], [place] [address]- 2076 Feb, [facility] [address], [place] [address]- 6961 Dec, [facility] [address], [place] [address]- 3823 Dec, [facility] [address] [id number], [place] [address]- 2252 Oct, [facility] [address], [place] [address]- 7331 Oct, [facility] [address] [id number], [place] [address]- 8361 Oct, [facility] [address], [place] [address]- 2630 Jul, IMMUNIZATIONS No Known Immunizations SOCIAL HISTORY Never Assessed REASON FOR VISIT TE #24 & 25 PLAN OF CARE Activity Details Follow Up prn Reason:DOMENICO with HYG VITAL SIGNS Blood pressure systolic 152 mmHg 2017-07-06 Blood pressure diastolic 90 mmHg 2017-07-06 MEDICATIONS Medication Instructions Dosage Frequency Start Date End Date Duration Status Zoloft 100 mg Orally Once a day 1 tablet 24h Mar, 30 days Active Restasis 0.05 % instill [...] day 1 tablet 24h 30 days Active Spironolactone 50MG Orally Once a day 1 tablet 24h Active Plaquenil 200 mg Orally Once a day 1 tablet with food or milk 24h Active Norvasc 10 mg Orally Once a day 1 tablet 24h Active Metformin HCl 1000MG Orally 2 times a day TAKE ONE TABLET BY MOUTH TWICE DAILY 12h 30 days Active Sertraline HCl 50 mg TAKE ONE TABLET BY MOUTH ONCE DAILY (TAKE WITH 100MG TABLET) 30 days Active Omeprazole 40 MG Orally Once a day 1 capsule 24h Active Pravastatin Sodium 20 MG Orally Once a day 1 tablet 24h Active Tizanidine HCl 4 MG Orally 3 times a day 1 1/2 tablets 8h Active Invega Sustenna 234 MG/1.5ML Intramuscular Once a month, on the 10th of every month 1.5 ml 30 days Active Neurontin 600 mg Orally 2 times a day 1 tablet 12h 30 days Active Januvia 100MG Orally Once a day 1 tablet 24h 30 days Active Ventolin HFA 108 (90 Base) MCG/ACT Inhalation every 4 hrs 2 puffs as needed 4h Feb, Active Incontinence Supply Disposable SUPPLIES as directed Feb, 30 days Active HydrOXYzine HCl 50 mg TAKE ONE TO TWO TABLETS BY MOUTH EVERY 8 HOURS NEEDED FOR 30 DAYS 30 days Active Singulair 10 MG Orally Once a day 1 tablet in the evening 24h Jan, 30 day(s) Active Breo Ellipta 100-25 INHALE ONE PUFF BY MOUTH ONCE DAILY AT THE SAME TIME EACH DAY Active Loxapine Succinate 25 MG Orally 4 times a day PRN 1 capsule 30 days Active Sumatriptan Succinate 50 mg Orally Twice a day 1 tablet as needed for migraine- may repeat in 2 hours if needed 12h May, 10 days Active Ibuprofen 800MG TAKE ONE TABLET BY MOUTH THREE TIMES DAILY NEEDED Active RESULTS No Results PROCEDURES Procedure Date Ordered Result Body Site EXTRAC ERUPTED TOOTH/EXPOSED ROOT July 06, 2017 EXTRAC ERUPTED TOOTH/EXPOSED ROOT July 06, 2017 INSTRUCTIONS MEDICATIONS ADMINISTERED No Known Medications [...] for psychosis/mental illness , last one in [place] at [facility] 4 years ago
--- OUTSIDE RECORDS SUMMARY | 2018-09-02 13:53 | XMS REPORT ---
Author Author SOTO STRICKLAND Organization [facility] Address [address] [place] [address] Care Team Providers Care Finishing Manager Name Role Phone SOTO STRICKLAND Unavailable PROBLEMS Type Condition ICD9-CM Code XWS44-SH Code Onset Dates Condition Status SNOMED Code Problem OAB (overactive bladder) N32.81 Active 186061272 Problem Depression with anxiety F41.8 Active 579407488 Problem Other seasonal allergic rhinitis J30.2 Active 774926623 Problem Chronic obstructive pulmonary disease, unspecified COPD type J44.9 Active 04858005 Problem Tobacco abuse Z72.0 Active 424223521 Problem Morbid obesity due to excess calories E66.01 Active 830502061 Problem Dyslipidemia E78.5 Active 482073607 Problem Hypothyroidism (acquired) E03.9 Active 707991655 Problem Essential hypertension I10 Active 77136304 Problem Diabetic polyneuropathy associated with type 2 diabetes mellitus E11.42 Active 109396844 Problem Type 2 diabetes mellitus with diabetic neuropathic arthropathy, 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 Active 694061747 Problem Type 2 diabetes mellitus without complication, without long-term current use of insulin E11.9 Active 593321562 Problem Paranoid schizophrenia F20.0 Active 01578291 Problem Chronic pain syndrome G89.4 Active 192328555 Problem Migraine without aura and without status migrainosus, not intractable G43.009 Active 798712131 Problem Gastroesophageal reflux disease, esophagitis presence not specified K21.9 Active 435882243 Problem Seasonal allergic rhinitis due to pollen J30.1 Active 33205576 Problem COPD exacerbation J44.1 Active 502815456 Problem Seasonal allergic rhinitis due to other allergic trigger J30.89 Active 946017958 Problem Schizoaffective disorder, depressive type F25.1 Active 04630814 Problem History of lupus Z87.39 Active 628212546 Problem Gastroesophageal reflux disease without esophagitis K21.9 Active 514367396 Problem Menopausal syndrome (hot flashes) N95.1 Active 473876268 Problem Other allergic rhinitis J30.89 Active 625550670 Problem Primary insomnia F51.01 Active 0263050 Problem DM neuro manif type II E11.49 Active 02211571 ALLERGIES No Information ENCOUNTERS Encounter Location Date Diagnosis [place] [address] [address] Nov, [place] [address] [place] [id number] [place] [address] 73124- 1042 Nov, [place] [address] [place] [id number] [place] [address] 77517- 6125 Oct, [address], [place] [address] Oct Chronic pain syndrome G89.4 and Schizoaffective disorder, depressive type F25.1 [place] [address] [place] [address] 36806- 6010 Oct, Chronic pain syndrome G89.4 and Schizoaffective disorder, depressive type F25.1 [place] [address] [place] [id number] [place] [address] 59708- 7886 Oct, Type 2 diabetes mellitus without complication, without long- term current use of insulin E11.9 [place] [address] [place] [address] 43804- 6222 12 Oct, 2017 Essential hypertension I10 and DM neuro manif type II E11.49 [place] [address] [place] [address] 34311- 0853 Oct, [place] [address] [place] [id number] [place] [address] 92253- 0653 Oct, Schizoaffective disorder, depressive type F25.1 and BMI 45.0 -49.9, adult Z68.42 [place] [address] [place] [address] 83020- 5209 Oct, [place] [address] [place] [id number] [place] [address] 16879- 4486 Oct, Paranoid schizophrenia F20.0 [facility] [address] [address] 10 Oct, 2017 Type 2 diabetes mellitus with diabetic neuropathic arthropathy, 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 ; Essential hypertension I10 ; Hypothyroidism (acquired) E03.9 ; Chronic obstructive pulmonary disease, unspecified COPD type J44.9 and Diabetic polyneuropathy associated with type 2 diabetes mellitus E11.42 [facility] [address] [place] [id number] [place] [address] 78111- 9873 Sep, Paranoid schizophrenia F20.0 [facility] [address] [place] [id number] [place] [address] 64539- 0112 Sep, Paranoid schizophrenia F20.0 and BMI 45.0-49.9, adult Z68.42 [facility] [address] [place] [id number] [place] [address] 53020- 4253 Sep, Schizoaffective disorder, depressive type F25.1 [facility] [address] [place] [id number] [place] [address] 89002- 4310 Sep, [facility] [address] [place] [id number] [place] [address] 19504- 3143 Sep, Paranoid schizophrenia F20.0 [facility] [address] [place] [id number] [place] [address] 22898- 6954 Sep, [facility] [address] [place] [id number] [place] [address] 72006- 2512 Sep, Hypothyroidism (acquired) E03.9 [facility] [address] [place] [id number] [place] [address] 88056- 5633 Sep, [facility] [address] [place] [id number] [place] [address] 00779- 5170 August, Schizoaffective disorder, depressive type F25.1 [facility] [address] [place] [id number] [place] [address] 34900- 0391 August, [facility] [address] [place] [id number] [place] [address] 15761- 3719 August, [facility] [address] 93957- 4693 August, [facility] [address] 58165- 4218 August, Paranoid schizophrenia F20.0 [facility] [address] 27928- 4789 August, History of lupus Z87.39 and Chronic pain syndrome G89.4 [place] [address] 43820- 3288 August, [facility] [address] [address] August, Seasonal allergic rhinitis, unspecified trigger J30.2 and BMI 45.0-49.9, adult Z68.42 [place] [address] 03329- 1366 Jul, Schizoaffective disorder, depressive type F25.1 [place] [address] 41408- 0211 Jul, [place] [address] 07342- 6693 Jul, Hypothyroidism (acquired) E03.9 [place] [address] [place] [id number] [place] [address] 91188- 1450 Jul, Chronic obstructive pulmonary disease, unspecified COPD type J44.9 and Type 2 diabetes mellitus without complication, without long-term current use of insulin E11.9 [place] [address] 18048- 7447 Jul, Paranoid schizophrenia F20.0 [place] [address] 07552- 2511 Jun, Hypothyroidism (acquired) E03.9 and Seasonal allergic rhinitis due to pollen J30.1 [facility] [address] [place] [id number] [place] [address] 53889 -3038 Jun, Shortness of breath at rest R06.02 ; COPD exacerbation J44.1 and BMI 45.0-49.9, adult Z68.42 [facility] [address] 78220- 1386 Jun, [facility] [address] 31689- 1705 Jun, Paranoid schizophrenia F20.0 ; Depression with anxiety F41.8 and BMI 45.0-49.9, adult Z68.42 [facility] [address] 33732- 2038 Jun, Schizoaffective disorder, depressive type F25.1 [facility] [address] [id number] Jun, Dental caries K02.9 [facility] [address] 61269- 1837 Jun, Paranoid schizophrenia F20.0 [facility] [address] 50813- 3187 May, Migraine without aura and without status migrainosus, not intractable G43.009 ; DM neuro manif type II E11.49 and Type 2 diabetes mellitus without complication, without long-term current use of insulin E11.9 [facility] [address] [place] [id number] [place] [address] 38751- 9891 May, Migraine without aura and without status migrainosus, not intractable G43.009 [facility] [address] 10673- 6619 May, Depression with anxiety F41.8 [facility] [address] [id number] May, [facility] [address] 52557- 4179 13 May, 2017 [place] [id number] [place] [address] 23546- 8896 May, [place] [address] [place] [id number] [place] [address] 36955- 3502 09 May, 2017 Hypothyroidism (acquired) E03.9 [place] [address] [place] [id number] [place] [address] 10390- 3842 May, Paranoid schizophrenia F20.0 [place] [address] [place] [id number] [place] [address] 04763- 1874 08 May, 2017 Type 2 diabetes mellitus [...] N32.81 and Controlled substance agreement signed Z79.899 [place] [address] [place] [id number] [place] [address] 44340- 6079 02 May, 2017 Controlled substance agreement signed Z79.899 [place] [address] [place] [address] 15265- 5850 Apr, [facility] [address] [place] [id number] [place] [address] [id number] Apr, Dental examination Z01.20 [place] [address] [place] [id number] [place] [address] 73034- 2164 Apr, Paranoid schizophrenia F20.0 [place] [address] [place] [id number] [place] [address] 56819- 0530 Apr, Hypertension, unspecified type I10 [facility] [address] [place] [address] 52822- 0888 Apr, Paranoid schizophrenia F20.0 [facility] [address] [place] [id number] [place] [address] 08163- 1489 Apr, [facility] [address] [place] [id number] [place] [address] 50725- 3851 Apr, Tobacco abuse Z72.0 [facility] [address] [place] [id number] [place] [address] 25755- 8871 Apr, [facility] [address] [place] [id number] [place] [address] 09435- 2331 Mar, [facility] [address] [place] [id number] [place] [address] 83641- 1969 Mar, Paranoid schizophrenia F20.0 and BMI 45.0-49.9, adult Z68.42 [facility] [address] [place] [id number] [place] [address] 74755- 3356 Mar, Schizoaffective disorder, depressive type F25.1 [facility] [address] [place] [id number] [place] [address] 23987- 6269 Mar, [facility] [address] [place] [id number] [place] [address] 09902- 6579 Mar, Hypothyroidism, unspecified type E03.9 [facility] [address] [place] [id number] [place] [address] 38444- 5080 Mar, Schizoaffective disorder, depressive type F25.1 [facility] [address] [place] [address] 67907 -8885 Feb, Gastroenteritis K52.9 and BMI 45.0-49.9, adult Z68.42 [facility] [address] [place] [id number] [place] [address] 63567- 1462 Feb, [facility] [address] [place] [id number] [place] [address] 32231- 9280 Feb, [facility] [address] 83420- 0989 Feb, [place] [address] 64196- 6082 Feb, [place] [address] 34658- 0503 Feb, Paranoid schizophrenia F20.0 [place] [address] 48832- 2496 Feb, Gastroesophageal reflux disease without esophagitis K21.9 ; Other seasonal allergic rhinitis J30.2 ; Other allergic rhinitis J30.89 ; Tobacco abuse Z72.0 and BMI 40.0-44.9, adult Z68.41 [place] [address] 73717- 6853 Feb, Onychomycosis B35.1 ; Callus of foot L84 and DM neuro manif type II E11.49 [place] [address] 85018- 7858 Jan, Chronic allergic rhinitis J30.9 [place] [address] 66211- 7624 Jan, [place] [address] 11637- 5289 Jan, Schizoaffective disorder, depressive type F25.1 [place] [address] 10286- 4937 Jan, [facility] [address] 94818 -7346 Jan, Sore throat J02.9 and Seasonal allergic rhinitis due to other allergic trigger J30.89 [facility] [address] 29226- 8808 Jan, [facility] [address] 66319- 0491 Jan, [facility] [address] [place] [id number] [place] [address] 60433 -0981 Jan, Chronic allergic rhinitis J30.9 [facility] [address] [place] [id number] [place] [address] 34122- 9358 Dec, Paranoid schizophrenia F20.0 ; Primary insomnia F51.01 and Schizoaffective disorder, depressive type F25.1 [facility] [address] 59173- 5272 Dec, Chronic pain syndrome G89.4 ; Cervicalgia of occipito- atlanto-axial region M54.2 ; Menopausal syndrome (hot flashes) N95.1 and Encounter for immunization Z23 [facility] [address] [place] [id number] [place] [address] 18319- 6345 14 Dec, 2016 [facility] [address] 67670- 3646 Dec, [facility] [address] [place] [id number] [place] [address] 81229- 7799 08 Dec, 2016 Paranoid schizophrenia F20.0 [place] [address] [place] [id number] [place] [address] 95061- 3265 Dec, Schizoaffective disorder, depressive type F25.1 [facility] [address] [place] [id number] [place] [address] 49553- 3549 Nov, Hypothyroidism, unspecified type E03.9 [facility] [address] [place] [id number] [place] [address] 38961 -7536 Nov, Acute seasonal allergic rhinitis due to other allergen J30.89 [facility] [address] [place] [id number] [place] [address] 03702- 1152 Nov, [facility] [address] [place] [id number] [place] [address] 86315- 5975 Nov, Hypothyroidism, unspecified type E03.9 and Other elevated white blood cell (WBC) count D72.828 [place] [address] [place] [address] 90171- 8265 Nov, Schizoaffective disorder, depressive type F25.1 [place] [address] [place] [id number] [place] [address] 19264- 1363 Nov, Paranoid schizophrenia F20.0 [place] [address] [place] [id number] [place] [address] 73107- 9781 Nov, Type 2 diabetes mellitus without complication, without long- term current use of insulin E11.9 ; Morbid obesity due to excess calories E66.01 and Chronic pain syndrome G89.4 [place] [address] [place] [id number] [place] [address] 94774- 6776 Oct, Paranoid schizophrenia F20.0 [place] [address] [place] [id number] [place] [address] 43912- 1436 Oct, [place] [address] [place] [id number] [place] [address] 25452- 4997 Oct, Schizoaffective disorder, depressive type F25.1 [place] [address] [place] [id number] [place] [address] 06426- 8806 Oct, Hypothyroidism, unspecified type E03.9 and Other elevated white blood cell (WBC) count D72.828 [place] [address] [place] [id number] [place] [address] 62533- 6576 Oct, Morbid obesity due to excess calories E66.01 ; Chronic obstructive pulmonary disease, unspecified COPD type J44.9 ; History of lupus Z87.39 ; Hypothyroidism, unspecified type E03.9 ; Gastroesophageal reflux disease without esophagitis K21.9 ; Primary insomnia F51.01 and Chronic pain syndrome G89.4 [place] [address] [place] [address] 28345- 2400 Sep, [place] [address] [place] [id number] [place] [address] 52184- 7717 Sep, [place] [address] [address]- 6258 Sep, [facility] [address] [place] [id number] [place] [address] 43502- 6684 Sep, Paranoid schizophrenia F20.0 [facility] [address] [address]- 9548 Sep, [facility] [address] [place] [id number] [place] [address] 99995- 0603 Sep, Paranoid schizophrenia F20.0 [facility] [address] [place] [address] 64968- 7966 Sep, [facility] [address] [place] [id number] [place] [address] 49305- 3426 August, Paranoid schizophrenia F20.0 [facility] [address] [place] [id number] [place] [address] 73101- 3633 Jul, [facility] [address] [place] [id number] [place] [address] 44768- 9396 Jul, Type 2 diabetes mellitus without complication, without long- term current use of insulin E11.9 ; Morbid obesity due to excess calories E66.01 ; Depression with anxiety F41.8 ; Hypothyroidism, unspecified type E03.9 ; Seasonal allergic rhinitis due to other allergic trigger J30.89 ; Pain, dental K08.89 and Gastroesophageal reflux disease without esophagitis K21.9 [facility] [address] [address] Jul, Dental examination Z01.20 [facility] [address] [address]- 9277 Jul, Paranoid schizophrenia F20.0 [facility] [address] [place] [id number] [place] [address] 65374- 7706 13 Jun, 2016 Paranoid schizophrenia F20.0 and Depression with anxiety F41.8 [facility] [address] [place] [address] 39584- 5480 Jun, Paranoid schizophrenia F20.0 and Depression with anxiety F41.8 [place] [address] [place] [id number] [place] [address] 92823- 3494 Jun, [place] [address] [place] [id number] [place] [address] 50900- 4707 Jun, [facility] [place] [address] [place] [id number] [place] [address] 49556 -5978 Jun, Seasonal allergic rhinitis due to other allergic trigger J30.89 [facility] [place] [id number] [place] [address] 21491 -2770 May, Sore throat J02.9 ; Other viral agents as the cause of diseases classified elsewhere B97.89 and Acute upper respiratory infection, unspecified J06.9 [place] [address] [place] [id number] [place] [address] 68216- 8008 May, Paranoid schizophrenia F20.0 and Depression with anxiety F41.8 [place] [address] [place] [id number] [place] [address] 29434- 6349 Apr, Other seasonal allergic rhinitis J30.2 [place] [address] [place] [id number] [place] [address] 93207- 1302 Apr, Paranoid schizophrenia F20.0 and Depression with anxiety F41.8 [facility] [address] [place] [id number] [place] [address] 85047 -9483 Apr, Bronchitis J40 and Sore throat J02.9 [place] [address] [place] [id number] [place] [address] 08312- 8166 Apr, Type 2 diabetes mellitus without complication, without long- term current use of insulin E11.9 [facility] [place] [address] [place] [id number] [place] [address] 32781 -5096 Apr, Bronchitis J40 [place] [address] [place] [id number] [place] [address] 73562- 9507 Apr, [place] [address] [place] [id number] [place] [address] 42307- 8722 Apr, [place] [address] 23522- 0080 Mar, Type 2 diabetes mellitus without complication, [...] R60.9 and Other seasonal allergic rhinitis J30.2 [place] [address] 59921- 3852 Mar, Paranoid schizophrenia F20.0 and Depression with anxiety F41.8 [place] [address] 03902- 8333 Feb, [place] [address] 50811- 6831 Feb, [place] [address] 13784- 2013 Feb, [place] [address] [place] [id number] [place] [address] 33491- 3373 Feb, [place] [address] 17770- 8568 Feb, Type 2 diabetes mellitus without complication, without long- term current use of insulin E11.9 ; ARIAS on CPAP G47.33 and Preoperative evaluation to rule out surgical contraindication Z01.818 [place] [address] 26505- 5456 Feb, Paranoid schizophrenia F20.0 and Depression with anxiety F41.8 [place] [address] [place] [id number] [place] [address] 12827- 0529 Jan, [place] [address] [address]- 0300 18 Jan, 2016 Paranoid schizophrenia F20.0 and Depression with anxiety F41.8 [facility] [address] [facility] [id number] [address]- 3288 17 Jan, 2016 [facility] [address] [place] [id number] [place] [address] 40331- 7474 14 Jan, 2016 Muscle strain T14.8 [facility] [address] [place] [id number] [place] [address] 33288- 2204 10 Jan, 2016 Paranoid schizophrenia F20.0 [facility] [address] [facility] [id number] [place] [address] 70470- 7258 07 Jan, 2016 [facility] [address] [place] [id number] [place] [address] 34207- 4904 05 Jan, 2016 Paranoid schizophrenia F20.0 and Depression with anxiety F41.8 [facility] [address] [place] [id number] [place] [address] 68736- 2886 05 Jan, 2016 [facility] [address] [place] [id number] [place] [address] 79967- 7284 Jan, [facility] [address] [place] [id number] [place] [address] 80814- 8181 28 Dec, 2015 [facility] [address] [place] [id number] [address]- 4829 23 Dec, 2015 Paranoid schizophrenia F20.0 [facility] [address] [place] [id number] [address]- 2142 16 Dec, 2015 Paranoid schizophrenia F20.0 and Depression with anxiety F41.8 [facility] [address] [facility] [id number] [address]- 5108 31 Nov, 2015 [facility] [address] [facility] [id number] [address] 24 Nov, 2015 Paranoid schizophrenia F20.0 [facility] [id number] [place] [address] Nov, Paranoid schizophrenia F20.0 and Depression with anxiety F41.8 [id number] [place] [address]- [address] Nov, Type 2 diabetes mellitus without complication, without long- term current use of insulin E11.9 ; Paranoid schizophrenia F20.0 ; Chronic obstructive pulmonary disease, unspecified COPD type J44.9 ; Morbid obesity due to excess calories E66.01 and Parkinsonian tremor G20 [address] [id number] [place] [address]- [address] Nov, [place] [place] [id number] [place] [phone]- 3493 Oct, Paranoid schizophrenia F20.0 [address] [place] [id number] [place] [address] 826[address]- 2267 Oct, Paranoid schizophrenia F20.0 [facility] [place] [id number] [place] [address] 85609- 4122 Oct, Paranoid schizophrenia F20.0 and Depression with anxiety F41.8 [place] [place] [id number] [place] [address] 113[address]- 8405 Oct, [address] [place] [id number] [place] [address] 0[address]- 9074 Oct, Paranoid schizophrenia F20.0 and Depression with anxiety F41.8 [place] [place] [id number] [place] [address] 42824- 4706 Oct, Nasal sore J34.89 [facility] [place] [id number] [place] [address] 94387- 2681 Oct, Type 2 diabetes mellitus without complication, without long- term current use of insulin E11.9 ; Depression with anxiety F41.8 ; Hypothyroidism, unspecified type E03.9 and History of lupus Z87.39 [address] [id number] [place] [address] 97566- 6363 Oct, [facility] [id number] [place] [address] [id number] 0056 Oct, Type 2 diabetes mellitus without [...] lupus Z87.39 [facility] [id number] [place] [address] 85674- 6578 Feb, [facility] [id number] [place] [address] 41927- 6844 Jan, [facility] [id number] [place] [address] 79333- 1043 Jan, [facility] [id number] [place] [address] 49213- 4392 Jan, [facility] [id number] [place] [address] [id number] 2233 Dec, [facility] [id number] [place] [address] [id number] 7971 Nov, [facility] [id number] [place] [address] 21934- 2260 Nov, [facility] [id number] [place] [address] [id number] Oct, [facility] [id number] [place] [address] 35501- 1126 Oct, [facility] [id number] [place] [address] 46824- 4586 Oct, [facility] [address] [address]- 2533 12 Sep, 2014 Allergic rhinitis 477.9 [facility] [id number] [address] 7304 11 Sep, 2014 Rhinitis, allergic 477.9 [facility] [address] [id number] [address]- 1996 10 Sep, 2014 Rhinitis, allergic 477.9 [facility] [address] [id number] [address]- 9580 Sep, [facility] [address] [id number] [address]- 1845 August, [facility] [id number], [place] [address]- 0648 August, [facility] [id number], [place] [address]- 1404 August, [facility] [id number] [address]- 5468 Jul, [facility] [place] [facility] [address] [id number] [address]- 7252 Jul, [facility] [id number], [place] [address]- 3454 Jul, [facility] [place] [facility] [id number], [place] [address]- 5102 16 Jun, 2014 [facility] [place] [facility] [address] [id number] [address]- 2497 16 Jun, 2014 [facility] [place] [facility] [address] [id number] [address]- 8413 Jun, [facility] [place] [facility] [address] [id number], [place] [address]- 6197 Jun, [facility] [place] [facility] [address] [id number], [place] [address]- 0224 Jun, [facility] [place] [facility] [address] [id number], [place] [address]- 7811 Jun, [facility] [place] [facility] [address] [id number] [place] [address]- 7645 Jun, [facility] [place] [facility] [address] [id number] [place] [address]- 6358 Jun, [facility] [place] [facility] [address] [id number] [place] [address]- 6386 May, 2014 [facility] [place] [facility] [address] [id number] [place] [address]- 4431 May, 2014 [facility] [place] [facility] [address] [id number] [place] [address]- 8448 May, 2014 [facility] [place] [facility] [address] [facility] [id number] [place] [address]- 8947 May, 2014 [facility] [place] [facility] [address] [facility] [id number] [place] [address]- 8184 Apr, [facility] [place] [facility] [address] [id number] [place] [address]- 1280 Mar, [facility] [place] [facility] [address] [id number] [place] [address]- 7896 Mar, [facility] [place] [facility] [address] [facility] [id number] [place] [address]- 7999 Mar, [facility] [place] [facility] [address] [id number] [place] [address]- 2528 Mar, [facility] [place] [facility] [address] [id number] [place] [address]- 5216 Mar, [facility] [place] [facility] [address] [id number] [place] 0834 Mar, [facility] [place] [facility] [address] [facility] [id number] [place] 4562 Mar, [facility] [place] [facility] [address] [facility] [id number] [place] [address]- 9172 Mar, [facility] [place] [facility] [address] [id number] [place] [address]- 4496 Mar, [facility] [place] [facility] [address] [id number] [place] [address]- 7186 Feb, [facility] [place] [facility] [address] [id number] [place] [address]- 3603 Feb, [facility] [place] [facility] [address] [id number] [place] [address]- 2471 Feb, [facility] [place] [facility] [address] [id number] [place] [address]- 3954 Feb, [facility] [place] [facility] [address] [id number] [place] [address]- 0257 Feb, [facility] [place] [facility] [address] [id number] [place] [address]- 9376 Feb, [facility] [place] [facility] [address] [id number] [place] [address]- 3416 Feb, [facility] [place] [facility] [address] [id number] [place] [address]- 0269 Feb, [facility] [place] [facility] [address] [id number] [place] [address]- 7629 Jan, [facility] [place] [facility] [address] [id number] [place] [address]- 0896 Jan, [facility] [place] [facility] [address] [id number] [place] [address]- 1358 16 Jan, 2014 [facility] [place] [facility] [address] [id number] [place] [address]- 9567 16 Jan, 2014 [facility] [place] [facility] [address] [id number] [place] [address]- 1344 15 Jan, 2014 [facility] [place] [facility] [address] [id number] [place] [address]- 1549 15 Jan, 2014 [facility] [place] [facility] [address] [id number] [place] [address]- 9199 14 Jan, 2014 [facility] [place] [facility] [address] [id number] [place] [address]- 6444 14 Jan, 2014 [facility] [place] [facility] [address] [id number] [place] [address]- 2444 14 Jan, 2014 [facility] [place] [facility] [address] [id number] [place] [address]- 9154 14 Jan, 2014 [facility] [place] [facility] [address] [id number] [place] [address]- 1005 18 Dec, 2013 [facility] [place] [facility] [address] [id number] [place] [address]- 8733 18 Dec, 2013 [facility] [place] [facility] [address] [id number] [place] [address]- 0888 10 Dec, 2013 [facility] [place] [facility] [address] [id number] [place] [address]- 2411 10 Dec, 2013 [facility] [place] [facility] [address] [id number] [place] [address]- 8356 Nov, [facility] [place] [facility] [address] [id number] [place] [address]- 4062 Nov, [facility] [place] [facility] [address] [id number] [place] [address]- 2107 Nov, [facility] [place] [facility] [address] [id number] [place] [address]- 0441 Nov, [facility] [place] [facility] [address] [id number] [place] [address]- 0948 Nov, [facility] [place] [facility] [address] [id number] [place] [address]- 6725 Oct, [facility] [place] [facility] [address] [id number] [place] [address]- 1440 Oct, [facility] [place] [facility] [address] [id number] [place] [address]- 9255 Oct, [facility] [place] [facility] [address] [id number] [place] [address]- 8384 Oct, [facility] [place] [facility] [address] [id number] [place] [address]- 6898 Sep, [facility] [place] [facility] [address] [id number] [place] [address]- 5377 Sep, [facility] [place] [facility] [address] [id number] [place] [address]- 0772 Sep, [facility] [place] [facility] [address] [id number] [place] [address]- 4334 Sep, [facility] [place] [facility] [address] [id number] [place] [address]- 0067 Sep, [facility] [place] [facility] [address] [id number] [place] [address]- 7277 Sep, [facility] [place] [facility] [address] [id number] [place] [address]- 5990 Sep, [facility] [place] [facility] [address] [id number] [place] [address]- 5789 Sep, [facility] [place] [facility] [address] [id number] [place] [address]- 5069 August, [facility] [place] [facility] [address] [id number] [place] [address]- 4785 August, [facility] [place] [facility] [address] [id number] [place] [address]- 4420 August, [facility] [place] [facility] [address] [id number] [place] [address]- 7015 August, [facility] [place] [facility] [address] [id number] [place] [address]- 1106 August, [facility] [place] [facility] [address] [id number] [place] [address]- 2331 August, [facility] [place] [facility] [address] [id number] [place] [address]- 7559 August, [facility] [place] [facility] [address] [id number] [place] [address]- 4991 Jul, [facility] [place] [facility] [address] [id number] [place] [address]- 3755 Jul, [facility] [place] [facility] [address] [id number] [place] [address]- 1238 Jul, [facility] [place] [facility] [address] [id number] [place] [address]- 2933 Jul, [facility] [place] [facility] [address] [id number] [place] [address]- 1726 Jul, [facility] [place] [facility] [address] [id number] [place] [address]- 2400 Jul, [facility] [place] [facility] [address] [id number] [place] [address]- 3036 Jul, [facility] [place] [facility] [address] [id number] [place] [address]- 6319 Jul, [facility] [place] [facility] [address] [id number] [place] [address]- 6863 Jul, [facility] [place] [facility] [address] [id number] [place] [address]- 4788 Jul, [facility] [place] [facility] [address] [id number] [place] [address]- 6652 Jul, [facility] [place] [facility] [address] [id number] [place] [address]- 2283 Jul, [facility] [place] [facility] [address] [id number] [place] [address]- 5965 Jun, [facility] [place] [facility] [address] [id number] [place] [address]- 6727 Jun, [facility] [place] [facility] [address] [id number] [place] 4373 Jun, [facility] [place] [facility] [address] [id number] [place] [address]- 9010 Jun, [facility] [address] [id number] [place] [address]- 8933 Jun, [facility] [place] [facility] [address] [id number] [place] [address]- 7896 May, [facility] [place] [facility] [address] [id number] [place] [address]- 0046 May, [facility] [place] [facility] [address] [id number] [place] [address]- 3671 May, [facility] [place] [facility] [address] [id number] [place] [address]- 6988 May, [facility] [place] [facility] [address] [facility] [id number] [place] [address]- 7541 May, [facility] [place] [facility] [address] [facility] [id number] [place] [address]- 2068 May, [facility] [place] [facility] [address] [facility] [id number] [place] [address]- 5465 May, [facility] [place] [facility] [address] [id number] [address]- 2316 May, [facility] [place] [facility] [address] [facility] [id number] [place] [address]- 7871 Mar, [facility] [place] [facility] [address] [facility] [id number] [place] [address]- 4785 Mar, [facility] [place] [facility] [address] [id number] [place] [address]- 0887 Mar, [facility] [place] [facility] [address] [id number] [place] 6239 Mar, [facility] [place] [facility] [address] [facility] [id number] [place] 8941 Mar, [facility] [place] [facility] [address] [facility] [id number] [place] [address]- 4324 Mar, [facility] [place] [facility] [address] [id number] [place] [address]- 2721 Feb, [facility] [place] [facility] [address] [id number] [place] 8236 Feb, [facility] [place] [facility] [address] [id number] [place] [address]- 2848 Jan, [facility] [place] [facility] [address] [id number] [place] [address]- 8900 Jan, [facility] [place] [facility] [address] [id number] [place] [address]- 1951 Jan, [facility] [place] [facility] [address] [id number] [place] [address]- 1948 Jan, [facility] [place] [facility] [address] [id number] [place] [address]- 5746 Jan, [facility] [place] [facility] [address] [id number] [address]- 8352 Jan, [facility] [place] [facility] [address] [id number] [place] [address]- 8964 Jan, [facility] [place] [facility] [address] [id number], [place] [address]- 3343 Jan, [facility] [place] [facility] [address] [id number], [place] [address]- 6497 Jan, [facility] [place] [facility] [address] [id number], [place] [address]- 0232 Jan, [facility] [place] [facility] [address] [id number], [place] [address]- 0591 Dec, [facility] [place] [facility] [address] [id number], [place] [address]- 7532 Nov, [facility] [place] [facility] [address] [id number], [place] [address]- 8832 Nov, [facility] [place] [facility] [address] [id number], [place] [address]- 0773 Nov, [facility] [id number], [place] [address]- 0574 Oct, [facility] [id number], [place] [address]- 2188 Oct, [facility] [id number], [place] [address]- 6082 August, [facility] [id number], [place] [address]- 3403 Apr, [facility] [id number] [place] [address] 9[address]- 7624 Apr, [facility] [id number] [address]- 4199 Feb, [facility] [id number] [place] [address] 12188- 4740 Feb, [facility] [id number], [place] [address]- 0189 Dec, [facility] [id number], [place] [address]- 0016 Dec, [facility] [id number], [place] [address]- 6868 Oct, [facility] [id number], [place] [address]- 6171 Oct, [facility] [id number], [place] [address]- 3166 Oct, [facility] [address] [id number], [place] [address]- 3498 Jul, IMMUNIZATIONS No Known Immunizations SOCIAL HISTORY Never Assessed REASON FOR VISIT triage PLAN OF CARE VITAL SIGNS MEDICATIONS Unknown [...] for psychosis/mental illness , last one in [facility] 4 years ago
--- OUTSIDE RECORDS SUMMARY | 2018-09-02 13:54 | XMS REPORT ---
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 Name Role Phone UMESH PINEDA Unavailable PROBLEMS Type Condition ICD9-CM Code KOP33-WE Code Onset Dates Condition Status SNOMED Code Problem Depression with anxiety F41.8 Active 249030961 Problem Other allergic rhinitis J30.89 Active 910962927 Problem Chronic obstructive pulmonary disease, unspecified COPD type J44.9 Active 95706453 Problem Other seasonal allergic rhinitis J30.2 Active 893432666 Problem Morbid obesity due to excess calories E66.01 Active 162992218 Problem Tobacco abuse Z72.0 Active 997878164 Problem Migraine without aura and without status migrainosus, not intractable G43.009 Active 242789421 Problem Gastroesophageal reflux disease, esophagitis presence not specified K21.9 Active 320823274 Problem Type 2 diabetes mellitus with diabetic neuropathic arthropathy, 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 Active 256280022 Problem Seasonal allergic rhinitis due to pollen J30.1 Active 17750501 Problem Chronic pain syndrome G89.4 Active 572932956 Problem History of lupus Z87.39 Active 100386943 Problem OAB (overactive bladder) N32.81 Active 295700824 Problem Essential hypertension I10 Active 40177816 Problem Dyslipidemia E78.5 Active 079150808 Problem COPD exacerbation J44.1 Active 475699266 Problem Hypothyroidism (acquired) E03.9 Active 299402125 Problem Gastroesophageal reflux disease without esophagitis K21.9 Active 591403844 Problem Seasonal allergic rhinitis due to other allergic trigger J30.89 Active 808810793 Problem Paranoid schizophrenia F20.0 Active 15825505 Problem Type 2 diabetes mellitus without complication, without long-term current use of insulin E11.9 Active 060811853 Problem DM neuro manif type II E11.49 Active 91519248 Problem Menopausal syndrome (hot flashes) N95.1 Active 452485774 Problem Schizoaffective disorder, depressive type F25.1 Active 70982799 Problem Primary insomnia F51.01 Active 8164264 ALLERGIES No Information ENCOUNTERS Encounter Location Date Diagnosis [place] [address] [address] Nov, [place] [address] 47045- 5705 Nov, [place] [address] 93955- 6196 Oct, [place] [address] 13681- 4492 Oct, Essential hypertension I10 and DM neuro manif type II E11.49 [place] [address] 44470- 0323 Oct, [place] [address] 77880- 6795 Oct, Schizoaffective disorder, depressive type F25.1 and BMI 45.0 -49.9, adult Z68.42 [place] [address] 19671- 8334 Oct, [place] [address] 18012- 3511 Oct, Paranoid schizophrenia F20.0 [place] [address] 78830- 7874 Oct, Type 2 diabetes mellitus with diabetic neuropathic arthropathy, 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 ; Essential hypertension I10 ; Hypothyroidism (acquired) E03.9 and Chronic obstructive pulmonary disease, unspecified COPD type J44.9 [place] [address] 55986- 0253 Sep, Paranoid schizophrenia F20.0 [place] [address] 26898- 7879 Sep, Paranoid schizophrenia F20.0 and BMI 45.0-49.9, adult Z68.42 [facility] [address] [address] Sep, Schizoaffective disorder, depressive type F25.1 [facility] [address] [place] [id number] [address] Sep, [facility] [address] [place] [id number] [place] [address] 93461- 6872 Sep, Paranoid schizophrenia F20.0 [facility] [address] [place] [id number] [place] [address] 43357- 0037 Sep, [facility] [address] [place] [id number] [place] [address] 09899- 6470 Sep, Hypothyroidism (acquired) E03.9 [facility] [address] [place] [id number] [place] [address] 92875- 6592 Sep, [facility] [address] [place] [id number] [place] [address] 75105- 2264 August, Schizoaffective disorder, depressive type F25.1 [facility] [address] [place] [id number] [place] [address] 54574- 8840 August, [facility] [address] [place] [id number] [place] [address] 89024- 6570 August, [facility] [address] [place] [id number] [place] [address] 68248- 3713 August, [facility] [address] [address] 1243 August, Paranoid schizophrenia F20.0 [facility] [address] [place] [id number] [place] [address] 22351- 7119 August, History of lupus Z87.39 and Chronic pain syndrome G89.4 [facility] [address] [address] 89[address] August, [facility] [address] [place] [id number] [place] [address] 26251 -8086 August, Seasonal allergic rhinitis, unspecified trigger J30.2 and BMI 45.0-49.9, adult Z68.42 [place] [address] 17266- 7439 Jul, Schizoaffective disorder, depressive type F25.1 [place] [address] 44283- 4678 Jul, [place] [address] 97777- 0819 Jul, Hypothyroidism (acquired) E03.9 [place] [address] 59772- 8854 Jul, Chronic obstructive pulmonary disease, unspecified COPD type J44.9 and Type 2 diabetes mellitus without complication, without long-term current use of insulin E11.9 [place] [address] 19522- 8974 Jul, Paranoid schizophrenia F20.0 [place] [address] 92959- 2031 Jun, Hypothyroidism (acquired) E03.9 and Seasonal allergic rhinitis due to pollen J30.1 [facility] [address] 46098 -4003 Jun, Shortness of breath at rest R06.02 ; COPD exacerbation J44.1 and BMI 45.0-49.9, adult Z68.42 [place] [address] 79051- 7426 Jun, [place] [address] 98625- 2366 Jun, Paranoid schizophrenia F20.0 ; Depression with anxiety F41.8 and BMI 45.0-49.9, adult Z68.42 [place] [address] 56028621- 6909 Jun, Schizoaffective disorder, depressive type F25.1 [facility] [address] [place] [address] [id number] Jun, Dental caries K02.9 [facility] [address] [place] [id number] [place] [address] 68415- 1886 Jun, Paranoid schizophrenia F20.0 [facility] [address] [place] [id number] [place] [address] May, Migraine without aura and without status migrainosus, not intractable G43.009 ; DM neuro manif type II E11.49 and Type 2 diabetes mellitus without complication, without long-term current use of insulin E11.9 [facility] [address] [place] [id number] [place] [address] 79273- 4761 May, Migraine without aura and without status migrainosus, not intractable G43.009 [facility] [address] [place] [id number] [place] [address] [address]64 May, Depression with anxiety F41.8 [facility] [address] [place] [address] [id number] May, [facility] [address] [place] [id number] [place] [address] 65338- 5644 May, [facility] [address] [place] [id number] [place] [address] 73733- 0998 May, [facility] [address] [place] [id number] [place] [address] 14544- 5142 May, Hypothyroidism (acquired) E03.9 [facility] [address] [place] [id number] [place] [address] 12749- 5571 May, Paranoid schizophrenia F20.0 [facility] [address] [place] [id number] [place] [address] 90705- 7019 May, Type 2 diabetes mellitus without complication, [...] N32.81 and Controlled substance agreement signed Z79.899 [place] [address] 94044- 7818 May, Controlled substance agreement signed Z79.899 [place] [address] 82695- 5867 Apr, [facility] [address] [id number] Apr, Dental examination Z01.20 [place] [address] 81764- 8899 Apr, Paranoid schizophrenia F20.0 [place] [address] 60566- 8296 Apr, Hypertension, unspecified type I10 [place] [address] 17497- 9561 Apr, Paranoid schizophrenia F20.0 [place] [address] 37418- 5805 Apr, [place] [address] 73590- 3156 Apr, Tobacco abuse Z72.0 [place] [address] 35607- 7501 Apr, [place] [address] 14753- 9649 Mar, [place] [address] [place] [id number] [place] [address] 20927- 8540 27 Mar, 2017 Paranoid schizophrenia F20.0 and BMI 45.0-49.9, adult Z68.42 [place] [address] [place] [id number] [place] [address] 58925- 9516 15 Mar, 2017 Schizoaffective disorder, depressive type F25.1 [place] [address] 59683- 8096 14 Mar, 2017 [place] [address] [place] [id number] [place] [address] 45753- 1536 Mar, Schizoaffective disorder, depressive type F25.1 [place] [address] [place] [id number] [place] [address] 31769- 5374 Mar, Hypothyroidism, unspecified type E03.9 [facility] [place] [address] [place] [id number] [place] [address] 64317 -5626 Feb, Gastroenteritis K52.9 and BMI 45.0-49.9, adult Z68.42 [place] [address] [place] [id number] [place] [address] 57766- 4773 Feb, [place] [address] [place] [id number] [place] [address] 28425- 2952 Feb, [place] [address] [place] [id number] [place] [address] 41982- 7068 Feb, [place] [address] [place] [id number] [place] [address] 66775- 1311 16 Feb, 2017 [place] [address] [place] [id number] [place] [address] 67654- 9475 10 Feb, 2017 Paranoid schizophrenia F20.0 [place] [address] [place] [id number] [place] [address] 77331- 1310 06 Feb, 2017 Gastroesophageal reflux disease without esophagitis K21.9 ; Other seasonal allergic rhinitis J30.2 ; Other allergic rhinitis J30.89 ; Tobacco abuse Z72.0 and BMI 40.0-44.9, adult Z68.41 [place] [address] [place] [id number] [place] [address] 87713- 4950 Feb, Onychomycosis B35.1 ; Callus of foot L84 and DM neuro manif type II E11.49 [place] [address] [place] [id number] [place] [address] 86905- 3813 31 Jan, 2017 Chronic allergic rhinitis J30.9 [place] [address] 32952- 8847 16 Jan, 2017 [place] [address] 82013- 8975 Jan, Schizoaffective disorder, depressive type F25.1 [place] [address] 60186- 0372 Jan, [facility] [address] 47514 -0191 Jan, Sore throat J02.9 and Seasonal allergic rhinitis due to other allergic trigger J30.89 [place] [address] 23311- 4493 Jan, [place] [address] 64252- 0887 Jan, [facility] [address] 55027 -8980 Jan, Chronic allergic rhinitis J30.9 [place] [address] [place] [id number] [place] [address] 91455- 2574 27 Dec, 2016 Paranoid schizophrenia F20.0 ; Primary insomnia F51.01 and Schizoaffective disorder, depressive type F25.1 [place] [address] [place] [id number] [place] [address] 64874- 8937 Dec, Chronic pain syndrome G89.4 ; Cervicalgia of occipito- atlanto-axial region M54.2 ; Menopausal syndrome (hot flashes) N95.1 and Encounter for immunization Z23 [place] [address] [place] [id number] [place] [address] 06354- 0487 14 Dec, 2016 [place] [address] 76541- 3035 13 Dec, 2016 [place] [address] 15634- 7965 08 Dec, 2016 Paranoid schizophrenia F20.0 [place] [address] 52644- 5980 Dec, Schizoaffective disorder, depressive type F25.1 [place] [address] 83106- 1638 Nov, Hypothyroidism, unspecified type E03.9 [facility] [address] 02753 -2497 Nov, Acute seasonal allergic rhinitis due to other allergen J30.89 [place] [address] [place] [id number] [place] [address] 37085- 2477 Nov, [place] [address] [place] [id number] [place] [address] 03794- 2884 Nov, Hypothyroidism, unspecified type E03.9 and Other elevated white blood cell (WBC) count D72.828 [place] [address] [place] [id number] [place] [address] 03920- 4199 Nov, Schizoaffective disorder, depressive type F25.1 [place] [address] [place] [id number] [place] [address] 38450- 3409 Nov, Paranoid schizophrenia F20.0 [place] [address] 70988- 9401 Nov, Type 2 diabetes mellitus without complication, without long- term current use of insulin E11.9 ; Morbid obesity due to excess calories E66.01 and Chronic pain syndrome G89.4 [place] [address] [place] [id number] [place] [address] 23180- 9344 Oct, Paranoid schizophrenia F20.0 [facility] [address] [place] [id number] [address]- 6781 Oct, [facility] [address] [place] [id number] [place] [address] 09768- 8283 Oct, Schizoaffective disorder, depressive type F25.1 [facility] [address] [place] [id number] [place] [address] 53956- 0887 Oct, Hypothyroidism, unspecified type E03.9 and Other elevated white blood cell (WBC) count D72.828 [place] [address] [place] [id number] [place] [address] 90021- 8835 Oct, Morbid obesity due to excess calories E66.01 ; Chronic obstructive pulmonary disease, unspecified COPD type J44.9 ; History of lupus Z87.39 ; Hypothyroidism, unspecified type E03.9 ; Gastroesophageal reflux disease without esophagitis K21.9 ; Primary insomnia F51.01 and Chronic pain syndrome G89.4 [facility] [address] [place] [id number] [place] [address] 25599- 6532 Sep, [place] [address] [place] [id number] [place] [address] 31016- 2013 Sep, [facility] [id number] [place] [address] 36732- 2068 Sep, [facility] [address] [place] [id number] [place] [address] 02929- 6401 Sep, Paranoid schizophrenia F20.0 [facility] [id number] [place] [address] 34981- 2328 Sep, [facility] [address] [place] [id number] [place] [address] 58800- 7713 Sep, Paranoid schizophrenia F20.0 [facility] [id number] [place] [address] 60965- 7619 Sep, [facility] [address] [place] [id number] [place] [address] 78565- 7783 August, Paranoid schizophrenia F20.0 [place] [address] [place] [address] 81542- 8018 Jul, [place] [address] [place] [id number] [place] [address] 42554- 8721 Jul, Type 2 diabetes mellitus without complication, without long- term current use of insulin E11.9 ; Morbid obesity due to excess calories E66.01 ; Depression with anxiety F41.8 ; Hypothyroidism, unspecified type E03.9 ; Seasonal allergic rhinitis due to other allergic trigger J30.89 ; Pain, dental K08.89 and Gastroesophageal reflux disease without esophagitis K21.9 [facility] [address] [place] [id number] [place] [address] [id number] Jul, Dental examination Z01.20 [place] [address] [place] [id number] [place] [address] 55635- 1745 07 Jul, 2016 Paranoid schizophrenia F20.0 [place] [address] [place] [id number] [place] [address] 53005- 4528 13 Jun, 2016 Paranoid schizophrenia F20.0 and Depression with anxiety F41.8 [place] [address] [place] [id number] [place] [address] 62475- 3569 Jun, Paranoid schizophrenia F20.0 and Depression with anxiety F41.8 [place] [address] [place] [address] 99708- 2613 Jun, [place] [address] [place] [id number] [place] [address] 12971- 7195 Jun, [facility] [address] [place] [address] 01521 -9863 Jun, Seasonal allergic rhinitis due to other allergic trigger J30.89 [facility] [address] [place] [address] 07296 -2294 May, Sore throat J02.9 ; Other viral agents as the cause of diseases classified elsewhere B97.89 and Acute upper respiratory infection, unspecified J06.9 [place] [address] [place] [id number] [place] [address] 79551- 2055 08 May, 2016 Paranoid schizophrenia F20.0 and Depression with anxiety F41.8 [place] [address] [place] [id number] [place] [address] 89418- 7128 31 Apr, 2016 Other seasonal allergic rhinitis J30.2 [place] [address] 88757- 4149 11 Apr, 2016 Paranoid schizophrenia F20.0 and Depression with anxiety F41.8 [facility] [place] [address] 19857 -6622 07 Apr, 2016 Bronchitis J40 and Sore throat J02.9 [place] [address] 93996- 2676 03 Apr, 2016 Type 2 diabetes mellitus without complication, without long- term current use of insulin E11.9 [facility] [place] [address] [place] [id number] [place] [address] 36396 -1130 02 Apr, 2016 Bronchitis J40 [place] [address] 65677- 1335 Apr, [place] [address] [place] [id number] [place] [address] 27221- 9004 Apr, [place] [address] [place] [id number] [place] [address] 20671- 8831 Mar, Type 2 diabetes mellitus without complication, [...] R60.9 and Other seasonal allergic rhinitis J30.2 [place] [address] [place] [id number] [place] [address] 40775- 6482 Mar, Paranoid schizophrenia F20.0 and Depression with anxiety F41.8 [facility] [address] [place] [id number] [place] [address]- [address]23 Feb, [facility] [address] [place] [id number] [place] [address] 31994- 5261 Feb, [facility] [address] [place] [id number] [place] [address] 79913- 4159 Feb, [facility] [address] [place] [id number] [place] [address] 95139- 6738 Feb, [facility] [address] [place] [id number] [place] [address]- 7159 Feb, Type 2 diabetes mellitus without complication, without long- term current use of insulin E11.9 ; ARIAS on CPAP G47.33 and Preoperative evaluation to rule out surgical contraindication Z01.818 [place] [address] [place] [id number] [place] [address] 86578- 1859 Feb, Paranoid schizophrenia F20.0 and Depression with anxiety F41.8 [place] [address] [place] [id number] [place] [address] 23545- 1752 Jan, [place] [address] [place] [address] 63982- 5939 Jan, Paranoid schizophrenia F20.0 and Depression with anxiety F41.8 [facility] [address] [place] [id number] [place] [address] 28049- 9525 17 Jan, 2016 [facility] [address] [place] [address] 61675- 3496 14 Jan, 2016 Muscle strain T14.8 [facility] [address] [place] [id number] [place] [address] 84440- 1738 10 Jan, 2016 Paranoid schizophrenia F20.0 [facility] [address] [place] [address] 11491- 3821 07 Jan, 2016 [facility] [address] [address]- 5284 05 Jan, 2016 Paranoid schizophrenia F20.0 and Depression with anxiety F41.8 [facility] [address] [address]- 5667 05 Jan, 2016 [facility] [address] [address]- 8952 Jan, [facility] [address] [place] [id number] [place] [address] 79977- 0401 Dec, [facility] [address] [place] [id number] [place] [address] 74721- 5729 Dec, Paranoid schizophrenia F20.0 [facility] [address] [place] [id number] [place] [address] 31779- 8397 16 Dec, 2015 Paranoid schizophrenia F20.0 and Depression with anxiety F41.8 [facility] [address] [place] [id number] [place] [address] 46972- 9764 Nov, [facility] [address] [place] [id number] [place] [address] 61113- 3686 Nov, Paranoid schizophrenia F20.0 [facility] [id number] [place] [address] 82484- 5298 Nov, Paranoid schizophrenia F20.0 and Depression with anxiety F41.8 [facility] [address] [address]- 1781 Nov, Type 2 diabetes mellitus without complication, without long- term current use of insulin E11.9 ; Paranoid schizophrenia F20.0 ; Chronic obstructive pulmonary disease, unspecified COPD type J44.9 ; Morbid obesity due to excess calories E66.01 and Parkinsonian tremor G20 [facility] [address] [address]- 0613 Nov, [facility] [address] [address]- 6872 Oct, Paranoid schizophrenia F20.0 [place] [address] [place] [id number] [place] [address] 49388- 1021 Oct, Paranoid schizophrenia F20.0 [place] [address] [place] [id number] [place] [address] 08214- 5977 Oct, Paranoid schizophrenia F20.0 and Depression with anxiety F41.8 [place] [address] 23747- 4435 Oct, [place] [address] 36375- 9970 Oct, Paranoid schizophrenia F20.0 and Depression with anxiety F41.8 [place] [address] [place] [id number] [place] [address] 58016- 7417 Oct, Nasal sore J34.[address] 66341- 2758 Oct, Type 2 diabetes mellitus without complication, without long- term current use of insulin E11.9 ; Depression with anxiety F41.8 ; Hypothyroidism, unspecified type E03.9 and History of lupus Z87.39 [place] [address] [place] [id number] [place] [address] 13153- 6026 Oct, [place] [address] [place] [id number] [place] [address] 53084- 0740 Oct, Type 2 diabetes mellitus without complication, [...] edema R60.9 and History of lupus Z87.39 [place] [address] [place] [id number] [place] [address] 39815- 9821 Feb, [facility] [address] [facility] [id number] [place] [address] Jan, [facility] [address] [facility] [id number] [address] [address] Jan, [facility] [address] [facility] [id number] [place] [address] Jan, [facility] [address] [facility] [id number], [place] [address] Dec, [facility] [address] [facility] [id number] [place] [address] Nov, [facility] [address] [id number], [place] [address] Nov, [facility] [id number] [address] Oct, [facility] [id number] [address] Oct, [facility] [id number], [place] [address] Oct, [facility] [id number] [address] Sep, Allergic rhinitis 477.9 [facility] [id number], [place] [address] Sep, Rhinitis, allergic 477.9 [facility] [address] [id number], [place] [address] Sep, Rhinitis, allergic 477.9 [facility] [address] [id number] [address] Sep, [facility] [address] [id number], [place] [address] August, [facility] [id number], [place] [address] August, [facility] [place] [facility] [address] [id number] [place] [address] August, [facility] [place] [facility] [address] [id number] [place] [address] 28 Jul, 2014 [facility] [place] [facility] [address] [id number] [place] [address] 14 Jul, 2014 [facility] [place] [facility] [address] [id number] [place] [address] Jul, [facility] [place] [facility] [address] [id number] [place] [address] Jun, [facility] [place] [facility] [address] [id number] [place] [address] Jun, [facility] [place] [facility] [address] [id number] [place] [address] Jun, [facility] [place] [facility] [address] [id number] [place] [address] Jun, [facility] [place] [facility] [address] [id number] [place] [address] Jun, [facility] [place] [facility] [address] [id number] [place] [address]- [address] Jun, [facility] [place] [facility] [address] [id number] [place] [address]- [address] Jun, [facility] [place] [facility] [address] [id number] [place] [address]- 5973 Jun, [facility] [place] [facility] [address] [id number] [place] [address] 69[address] May, [facility] [place] [facility] [address] [id number] [place] [address]- 3748 May, [facility] [place] [facility] [address] [id number] [place] [address]- [address]956 May, [facility] [place] [facility] [address] [id number] [place] [address]- 9144 11 May, 2014 [facility] [place] [facility] [address] [id number] [place] [address]- [address] Apr, [facility] [place] [facility] [address] [id number] [place] [address]- 9181 Mar, [facility] [place] [facility] [address] [id number] [place] [address]- 8570 Mar, [facility] [place] [facility] [address] [id number] [place] [address]- 9064 Mar, [facility] [place] [facility] [address] [id number] [place] [address] 1544 Mar, [facility] [place] [facility] [address] [id number] [place] [address] Mar, [facility] [place] [facility] [address] [id number] [place] [address]- 8588 Mar, [facility] [place] [facility] [address] [id number] [place] [address] Mar, [facility] [place] [facility] [address] [id number] [place] [address] 3[address] Mar, [facility] [place] [facility] [address] [id number] [place] [address] 2969 Mar, [facility] [place] [facility] [address] [id number] [place] [address]- 0256 Feb, [facility] [place] [facility] [address] [id number] [place] [address]- 4723 Feb, [facility] [place] [facility] [address] [id number] [place] [address]- 4[address] Feb, [facility] [place] [facility] [address] [id number] [place] [address]- 0146 17 Feb, 2014 [facility] [place] [facility] [address] [id number] [place] [address]- 5531 14 Feb, 2014 [facility] [place] [facility] [address] [id number] [place] [address]- 6071 14 Feb, 2014 [facility] [place] [facility] [address] [id number] [place] [address]- 3161 12 Feb, 2014 [facility] [place] [facility] [address] [id number] [place] [address]- [address]504 12 Feb, 2014 [facility] [place] [facility] [address] [id number] [place] [address]- 1286 23 Jan, 2014 [facility] [place] [facility] [address] [id number] [place] [address]- 3569 23 Jan, 2014 [facility] [place] [facility] [address] [id number] [place] [address]- 7443 16 Jan, 2014 [facility] [place] [facility] [address] [id number] [place] [address]- 4[address] 16 Jan, 2014 [facility] [place] [facility] [address] [id number] [place] [address]- 9284 15 Jan, 2014 [facility] [place] [facility] [address] [id number] [place] [address]- 4021 15 Jan, 2014 [facility] [place] [facility] [address] [id number] [place] [address]- 1715 14 Jan, 2014 [facility] [place] [facility] [address] [id number], [place] [address]- 3467 14 Jan, 2014 [facility] [place] [facility] [address] [id number], [place] [address]- [address] 14 Jan, 2014 [facility] [place] [facility] [address] [id number] [place] [address]- 5280 14 Jan, 2014 [facility] [place] [facility] [address] [id number], [place] [address]- [address] 18 Dec, 2013 [facility] [place] [facility] [address] [id number] [place] [address]- 7346 18 Dec, 2013 [facility] [place] [facility] [address] [id number] [place] [address] 8396 Dec, [facility] [place] [facility] [address] [id number] [place] [address]- 2312 Dec, [facility] [place] [facility] [address] [id number] [place] [address]- 8146 Nov, [facility] [place] [facility] [address] [id number] [place] [address] 4032 Nov, [facility] [place] [facility] [address] [id number] [place] [address]- 0649 Nov, [facility] [place] [facility] [address] [id number] [place] [address]- 5257 Nov, [facility] [place] [facility] [address] [id number] [place] [address]- 9542 Nov, [facility] [place] [facility] [address] [id number] [place] [address]- 4273 Oct, [facility] [place] [facility] [address] [id number] [place] [address]- 7493 Oct, [facility] [place] [facility] [address] [id number] [place] [address]- 8785 Oct, [facility] [place] [facility] [address] [id number] [place] [address] 1988 Oct, [facility] [place] [facility] [address] [id number] [place] [address] 0493 Sep, [facility] [place] [facility] [address] [id number] [place] [address]- 5903 Sep, [facility] [place] [facility] [address] [id number] [place] [address]- 6666 Sep, [facility] [place] [facility] [address] [id number] [place] [address]- 2547 Sep, [facility] [place] [facility] [address] [id number] [place] [address]- 4533 Sep, [facility] [place] [facility] [address] [id number] [place] [address]- 3637 Sep, [facility] [place] [facility] [address] [id number] [place] [address]- 6690 Sep, [facility] [place] [facility] [address] [id number] [place] [address]- 5854 Sep, [facility] [place] [facility] [address] [id number] [place] [address]- 1780 August, [facility] [place] [facility] [address] [id number] [place] [address]- 6598 August, [facility] [place] [facility] [address] [id number] [place] [address]- 0938 August, [facility] [place] [facility] [address] [id number] [place] [address] 0100 August, [facility] [place] [facility] [address] [id number] [place] [address]- 9624 August, [facility] [place] [facility] [address] [id number] [place] [address]- 0155 August, [facility] [place] [facility] [address] [id number] [place] [address]- 5773 August, [facility] [place] [facility] [address] [id number] [place] [address]- 1063 Jul, [facility] [place] [facility] [address] [id number] [place] [address]- 9919 Jul, [facility] [place] [facility] [address] [id number] [place] [address]- 2149 Jul, [facility] [place] [facility] [address] [id number] [place] [address]- 7652 Jul, [facility] [place] [facility] [address] [id number] [place] [address]- 7926 Jul, [facility] [place] [facility] [address] [id number] [place] [address]- 9099 Jul, [facility] [place] [facility] [address] [id number] [place] [address]- 9065 Jul, [facility] [place] [facility] [address] [id number] [place] [address]- 9639 Jul, [facility] [place] [facility] [address] [id number] [place] [address]- 9703 Jul, [facility] [place] [facility] [address] [id number] [place] [address]- 9014 Jul, [facility] [place] [facility] [address] [id number] [place] [address]- 9323 Jul, [facility] [place] [facility] [address] [id number] [place] [address]- 1651 Jul, [facility] [place] [facility] [address] [id number] [place] [address]- 9166 Jun, [facility] [place] [facility] [address] [id number] [place] [address]- 0670 Jun, [facility] [place] [facility] [address] [id number] [place] [address]- 7197 Jun, [facility] [place] [facility] [address] [id number] [place] [address]- 3382 Jun, [facility] [place] [facility] [address] [id number] [place] [address]- 2807 Jun, [facility] [place] [facility] [address] [id number] [place] [address]- 1178 May, [facility] [place] [facility] [address] [id number] [place] [address]- 5943 May, [facility] [place] [facility] [address] [id number] [place] [address]- 5935 May, [facility] [place] [facility] [address] [id number] [place] [address]- 4577 May, [facility] [place] [facility] [address] [id number] [place] [address]- 1672 May, 2013 [facility] [place] [facility] [address] [id number] [place] [address]- 0223 May, 2013 [facility] [place] [facility] [address] [id number] [place] [address]- 6588 May, 2013 [facility] [place] [facility] [address] [id number] [place] [address]- 4665 May, 2013 [facility] [place] [facility] [address] [id number] [place] [address]- 7889 Mar, [facility] [place] [facility] [address] [id number] [place] [address]- 2091 Mar, [facility] [place] [facility] [address] [facility] [id number] [place] [address]- 3061 Mar, [facility] [place] [facility] [address] [id number] [place] [address]- 8184 Mar, [facility] [place] [facility] [address] [id number] [place] [address]- 9893 Mar, [facility] [place] [facility] [address] [facility] [id number] [place] [address]- 3946 Mar, [facility] [place] [facility] [address] [facility] [id number] [place] [address]- 4233 Feb, [facility] [place] [facility] [address] [id number], [place] [address]- 5146 Feb, [facility] [place] [facility] [address] [id number] [place] [address]- 4942 Jan, [facility] [place] [facility] [address] [id number] [place] [address]- 3644 Jan, [facility] [place] [facility] [address] [id number] [place] [address]- 8588 Jan, [facility] [place] [facility] [address] [id number] [place] [address]- 2546 Jan, [facility] [place] [facility] [address] [id number] [place] [address]- 9666 Jan, [facility] [place] [facility] [address] [id number] [place] [address]- 6461 Jan, [facility] [place] [facility] [address] [id number] [place] [address]- 7000 Jan, [facility] [place] [facility] [address] [id number] [place] [address]- 2405 Jan, [facility] [place] [facility] [address] [id number] [place] [address]- 1791 Jan, [facility] [place] [facility] [address] [id number] [place] [address]- 3892 Jan, [facility] [place] [facility] [address] [id number] [place] [address]- 4221 Dec, [facility] [place] [facility] [address] [id number] [place] [address]- 5095 Nov, [facility] [place] [facility] [address] [id number] [place] [address]- 8386 Nov, [facility] [place] [facility] [address] [id number] [place] [address]- 4832 Nov, [facility] [place] [facility] [address] [id number] [place] [address]- 0505 Oct, [facility] [place] [facility] [address] [id number] [place] [address]- 8059 Oct, [facility] [place] [facility] [address] [id number] [place] [address]- 6786 August, [facility] [place] [facility] [address] [id number] [place] [address]- 4073 Apr, [facility] [place] [facility] [address] [id number] [place] [address]- 7410 Apr, [facility] [place] [facility] [address] [id number], [place] [address]- 8176 Feb, [facility] [address] [id number], [place] [address] 2528 Feb, [facility] [id number], [place] [address]- 6436 Dec, [facility] [id number], [place] [address]- 8371 Dec, [facility] [id number], [place] [address]- 4885 Oct, [facility] [id number], [place] [address]- 2982 Oct, [facility] [id number], [place] [address]- 8612 Oct, [facility] [id number], [place] [address]- 1802 Jul, IMMUNIZATIONS Vaccine Route Administration Date Status INVEGA (PT'S OWN) IM Intramuscular July 05, 2017 Administered SOCIAL HISTORY Never Assessed REASON FOR VISIT Injection- Althea Rae RN PLAN OF CARE VITAL SIGNS MEDICATIONS Unknown Medications RESULTS No Results PROCEDURES Procedure Date Ordered Result Body Site INVEGA (PT'S OWN) July 05, 2017 THER/PROPH/DIAG INJ, SC/IM July 05, 2017 INSTRUCTIONS MEDICATIONS ADMINISTERED No Known Medications [...] for psychosis/mental illness , last one in [facility] 4 years ago
--- OUTSIDE RECORDS SUMMARY | 2018-09-02 13:55 | XMS REPORT ---
Author Author SOTO STRICKLAND Organization [facility] Address [address] [place] [address] Care Team Providers Care Director Phone Name Role Phone SOTO STRICKLAND Unavailable PROBLEMS Type Condition ICD9-CM Code LBD14-NK Code Onset Dates Condition Status SNOMED Code Problem OAB (overactive bladder) N32.81 Active 486303600 Problem Depression with anxiety F41.8 Active 113805254 Problem Other seasonal allergic rhinitis J30.2 Active 390103341 Problem Chronic obstructive pulmonary disease, unspecified COPD type J44.9 Active 14574857 Problem Tobacco abuse Z72.0 Active 055661413 Problem Morbid obesity due to excess calories E66.01 Active 014187200 Problem Dyslipidemia E78.5 Active 288220417 Problem Hypothyroidism (acquired) E03.9 Active 263167717 Problem Essential hypertension I10 Active 65265808 Problem Diabetic polyneuropathy associated with type 2 diabetes mellitus E11.42 Active 313746732 Problem Type 2 diabetes mellitus with diabetic neuropathic arthropathy, 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 Active 538679409 Problem Type 2 diabetes mellitus without complication, without long-term current use of insulin E11.9 Active 953150943 Problem Paranoid schizophrenia F20.0 Active 37193529 Problem Chronic pain syndrome G89.4 Active 825194780 Problem Migraine without aura and without status migrainosus, not intractable G43.009 Active 725982049 Problem Gastroesophageal reflux disease, esophagitis presence not specified K21.9 Active 801187436 Problem Seasonal allergic rhinitis due to pollen J30.1 Active 16450637 Problem COPD exacerbation J44.1 Active 817970645 Problem Seasonal allergic rhinitis due to other allergic trigger J30.89 Active 570606365 Problem Schizoaffective disorder, depressive type F25.1 Active 39120449 Problem History of lupus Z87.39 Active 574635518 Problem Gastroesophageal reflux disease without esophagitis K21.9 Active 237913979 Problem Menopausal syndrome (hot flashes) N95.1 Active 228004776 Problem Other allergic rhinitis J30.89 Active 707261262 Problem Primary insomnia F51.01 Active 9356179 Problem DM neuro manif type II E11.49 Active 17046323 ALLERGIES No Information ENCOUNTERS Encounter Location Date Diagnosis [place] [address] [address] Nov, [place] [address] [place] [id number] [place] [address] 53661- 8988 Nov, [place] [address] [place] [id number] [place] [address] 63306- 5893 Oct, [address] [address] Oct Chronic pain syndrome G89.4 and Schizoaffective disorder, depressive type F25.1 [place] [address] [place] [address] 46015- 2224 Oct, Chronic pain syndrome G89.4 and Schizoaffective disorder, depressive type F25.1 [place] [address] [place] [id number] [place] [address] 62174- 4723 Oct, Type 2 diabetes mellitus without complication, without long- term current use of insulin E11.9 [place] [address] [place] [address] 95804- 1099 12 Oct, 2017 Essential hypertension I10 and DM neuro manif type II E11.49 [place] [address] [place] [address] 69463- 4462 Oct, [place] [address] [place] [id number] [place] [address] 01940- 4041 Oct, Schizoaffective disorder, depressive type F25.1 and BMI 45.0 -49.9, adult Z68.42 [place] [address] [place] [address] 36953- 5460 Oct, [place] [address] [place] [id number] [place] [address] 63004- 6084 Oct, Paranoid schizophrenia F20.0 [facility] [address], [place] [address] 6685 10 Oct, 2017 Type 2 diabetes mellitus with diabetic neuropathic arthropathy, 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 ; Essential hypertension I10 ; Hypothyroidism (acquired) E03.9 ; Chronic obstructive pulmonary disease, unspecified COPD type J44.9 and Diabetic polyneuropathy associated with type 2 diabetes mellitus E11.42 [facility] [address] [place] [id number] [place] [address] 51201- 4729 Sep, Paranoid schizophrenia F20.0 [facility] [address] [place] [id number] [place] [address] 75247- 4185 Sep, Paranoid schizophrenia F20.0 and BMI 45.0-49.9, adult Z68.42 [facility] [address] [place] [id number] [place] [address] 79931- 1064 Sep, Schizoaffective disorder, depressive type F25.1 [facility] [address] [place] [id number] [place] [address] 58323- 3541 Sep, [facility] [address] [place] [id number] [place] [address] 24855- 4867 Sep, Paranoid schizophrenia F20.0 [facility] [address] [place] [id number] [place] [address] 36961- 1529 Sep, [facility] [address] [place] [id number] [place] [address] 86114- 1059 Sep, Hypothyroidism (acquired) E03.9 [facility] [address] [place] [id number] [place] [address] 08648- 9808 Sep, [facility] [address] [place] [id number] [place] [address] 36990- 8117 August, Schizoaffective disorder, depressive type F25.1 [facility] [address] [place] [id number] [place] [address] 75376- 3199 August, [facility] [address] [place] [id number] [place] [address] 11090- 4416 August, [facility] [address] 48210- 8829 August, [facility] [address] 95348- 1021 August, Paranoid schizophrenia F20.0 [facility] [address] 71095- 1920 August, History of lupus Z87.39 and Chronic pain syndrome G89.4 [place] [address] 57114- 7411 August, [facility] [address] 44437 -5352 August, Seasonal allergic rhinitis, unspecified trigger J30.2 and BMI 45.0-49.9, adult Z68.42 [place] [address] 63906- 7162 Jul, Schizoaffective disorder, depressive type F25.1 [place] [address] 42946- 7723 Jul, [place] [address] 98816- 3827 Jul, Hypothyroidism (acquired) E03.9 [place] [address] [place] [id number] [place] [address] 93172- 1378 Jul, Chronic obstructive pulmonary disease, unspecified COPD type J44.9 and Type 2 diabetes mellitus without complication, without long-term current use of insulin E11.9 [place] [address] 63480- 1579 Jul, Paranoid schizophrenia F20.0 [place] [address] 25502- 3015 Jun, Hypothyroidism (acquired) E03.9 and Seasonal allergic rhinitis due to pollen J30.1 [facility] [address] [place] [id number] [place] [address] 13715 -7878 Jun, Shortness of breath at rest R06.02 ; COPD exacerbation J44.1 and BMI 45.0-49.9, adult Z68.42 [facility] [address] 80077- 3279 Jun, [facility] [address] 86596- 1327 Jun, Paranoid schizophrenia F20.0 ; Depression with anxiety F41.8 and BMI 45.0-49.9, adult Z68.42 [facility] [address] 74084- 4984 Jun, Schizoaffective disorder, depressive type F25.1 [facility] [address] [id number] Jun, Dental caries K02.9 [facility] [address] 46132- 0118 Jun, Paranoid schizophrenia F20.0 [facility] [address] 29201- 0325 May, Migraine without aura and without status migrainosus, not intractable G43.009 ; DM neuro manif type II E11.49 and Type 2 diabetes mellitus without complication, without long-term current use of insulin E11.9 [facility] [address] [place] [id number] [place] [address] 26249- 3665 May, Migraine without aura and without status migrainosus, not intractable G43.009 [facility] [address] 63556- 8301 May, Depression with anxiety F41.8 [facility] [address] [id number] May, [facility] [address] 64115- 2562 13 May, 2017 [place] [address] [place] [address] 80172- 5019 May, [place] [address] [place] [id number] [place] [address] 38428- 9238 09 May, 2017 Hypothyroidism (acquired) E03.9 [place] [address] [place] [id number] [place] [address] 29845- 4216 May, Paranoid schizophrenia F20.0 [place] [address] [place] [id number] [place] [address] 18450- 5754 08 May, 2017 Type 2 diabetes mellitus [...] N32.81 and Controlled substance agreement signed Z79.899 [place] [address] [place] [id number] [place] [address] 30537- 6509 02 May, 2017 Controlled substance agreement signed Z79.899 [place] [address] [place] [address] 23701- 9340 Apr, [facility] [address] [place] [id number] [place] [address] [id number] Apr, Dental examination Z01.20 [place] [address] [place] [id number] [place] [address] 60977- 0051 Apr, Paranoid schizophrenia F20.0 [place] [address] [place] [id number] [place] [address] 77724- 2822 Apr, Hypertension, unspecified type I10 [facility] [address] [place] [address] 75919- 9776 Apr, Paranoid schizophrenia F20.0 [facility] [address] [place] [id number] [place] [address] 78608- 0832 Apr, [facility] [address] [place] [id number] [place] [address] 34251- 1083 Apr, Tobacco abuse Z72.0 [facility] [address] [place] [id number] [place] [address] 55263- 8366 Apr, [facility] [address] [place] [id number] [place] [address] 59558- 3957 Mar, [facility] [address] [place] [id number] [place] [address] 79341- 3504 Mar, Paranoid schizophrenia F20.0 and BMI 45.0-49.9, adult Z68.42 [facility] [address] [place] [id number] [place] [address] 64212- 1751 Mar, Schizoaffective disorder, depressive type F25.1 [facility] [address] [place] [id number] [place] [address] 90647- 3160 Mar, [facility] [address] [place] [id number] [place] [address] 55696- 7117 Mar, Schizoaffective disorder, depressive type F25.1 [facility] [address] [place] [id number] [place] [address] 76639- 0442 Mar, Hypothyroidism, unspecified type E03.9 [facility] [address] [place] [address] 43772 -3892 Feb, Gastroenteritis K52.9 and BMI 45.0-49.9, adult Z68.42 [facility] [address] [place] [id number] [place] [address] 87988- 5248 Feb, [facility] [address] [place] [id number] [place] [address] 46246- 7528 Feb, [facility] [address] 57244- 7987 Feb, [place] [address] 99501- 6927 Feb, [place] [address] 10658- 5145 Feb, Paranoid schizophrenia F20.0 [place] [address] 77844- 9676 Feb, Gastroesophageal reflux disease without esophagitis K21.9 ; Other seasonal allergic rhinitis J30.2 ; Other allergic rhinitis J30.89 ; Tobacco abuse Z72.0 and BMI 40.0-44.9, adult Z68.41 [place] [address] 23141- 3951 Feb, Onychomycosis B35.1 ; Callus of foot L84 and DM neuro manif type II E11.49 [place] [address] 35302- 5476 Jan, Chronic allergic rhinitis J30.9 [place] [address] 25966- 9996 Jan, [place] [address] 85703- 8070 Jan, Schizoaffective disorder, depressive type F25.1 [place] [address] 54097- 5457 Jan, [facility] [address] 29911 -9704 Jan, Sore throat J02.9 and Seasonal allergic rhinitis due to other allergic trigger J30.89 [facility] [address] 84098- 2409 Jan, [facility] [address] 42991- 5090 Jan, [facility] [address] [place] [id number] [place] [address] 81406 -5117 Jan, Chronic allergic rhinitis J30.9 [facility] [address] [place] [id number] [place] [address] 46690- 8263 Dec, Paranoid schizophrenia F20.0 ; Primary insomnia F51.01 and Schizoaffective disorder, depressive type F25.1 [facility] [address] 77883- 0190 Dec, Chronic pain syndrome G89.4 ; Cervicalgia of occipito- atlanto-axial region M54.2 ; Menopausal syndrome (hot flashes) N95.1 and Encounter for immunization Z23 [facility] [address] [place] [id number] [place] [address] 73170- 5095 14 Dec, 2016 [facility] [address] 75136- 9032 Dec, [facility] [address] [place] [id number] [place] [address] 91485- 0174 08 Dec, 2016 Paranoid schizophrenia F20.0 [place] [address] [place] [id number] [place] [address] 58792- 7448 Dec, Schizoaffective disorder, depressive type F25.1 [facility] [address] [place] [id number] [place] [address] 07728- 3922 Nov, Hypothyroidism, unspecified type E03.9 [facility] [address] [place] [id number] [place] [address] 49293 -9310 Nov, Acute seasonal allergic rhinitis due to other allergen J30.89 [facility] [address] [place] [id number] [place] [address] 39332- 8096 Nov, [facility] [address] [place] [id number] [place] [address] 96443- 3710 Nov, Hypothyroidism, unspecified type E03.9 and Other elevated white blood cell (WBC) count D72.828 [place] [address] [place] [address] 30734- 5230 Nov, Schizoaffective disorder, depressive type F25.1 [place] [address] [place] [id number] [place] [address] 09576- 9688 Nov, Paranoid schizophrenia F20.0 [place] [address] [place] [id number] [place] [address] 35626- 0201 Nov, Type 2 diabetes mellitus without complication, without long- term current use of insulin E11.9 ; Morbid obesity due to excess calories E66.01 and Chronic pain syndrome G89.4 [place] [address] [place] [id number] [place] [address] 01685- 2142 Oct, Paranoid schizophrenia F20.0 [place] [address] [place] [id number] [place] [address] 01824- 0742 Oct, [place] [address] [place] [id number] [place] [address] 08604- 4652 Oct, Schizoaffective disorder, depressive type F25.1 [place] [address] [place] [id number] [place] [address] 58750- 4672 Oct, Hypothyroidism, unspecified type E03.9 and Other elevated white blood cell (WBC) count D72.828 [place] [address] [place] [id number] [place] [address] 52362- 7829 Oct, Morbid obesity due to excess calories E66.01 ; Chronic obstructive pulmonary disease, unspecified COPD type J44.9 ; History of lupus Z87.39 ; Hypothyroidism, unspecified type E03.9 ; Gastroesophageal reflux disease without esophagitis K21.9 ; Primary insomnia F51.01 and Chronic pain syndrome G89.4 [place] [address] [place] [address] 48845- 1761 Sep, [place] [address] [place] [id number] [place] [address] 19643- 7970 Sep, [place] [address], [place] [address]- 7583 Sep, [facility] [address] [place] [id number] [place] [address] 95939- 4987 Sep, Paranoid schizophrenia F20.0 [facility] [address], [place] [address]- 7296 Sep, [facility] [address] [place] [id number] [place] [address] 74275- 8893 Sep, Paranoid schizophrenia F20.0 [facility] [address] [place] [address] 92875- 6966 Sep, [facility] [address] [place] [id number] [place] [address] 23221- 2750 August, Paranoid schizophrenia F20.0 [facility] [address] [place] [id number] [place] [address] 62799- 7989 Jul, [facility] [address] [place] [id number] [place] [address] 83127- 1904 Jul, Type 2 diabetes mellitus without complication, without long- term current use of insulin E11.9 ; Morbid obesity due to excess calories E66.01 ; Depression with anxiety F41.8 ; Hypothyroidism, unspecified type E03.9 ; Seasonal allergic rhinitis due to other allergic trigger J30.89 ; Pain, dental K08.89 and Gastroesophageal reflux disease without esophagitis K21.9 [facility] [address] [address] Jul, Dental examination Z01.20 [facility] [address], [place] [address]- 9453 Jul, Paranoid schizophrenia F20.0 [facility] [address] [place] [id number] [place] [address] 74422- 1406 13 Jun, 2016 Paranoid schizophrenia F20.0 and Depression with anxiety F41.8 [facility] [address] [place] [address] 19783- 5889 Jun, Paranoid schizophrenia F20.0 and Depression with anxiety F41.8 [place] [address] [place] [id number] [place] [address] 41339- 4898 Jun, [place] [address] [place] [id number] [place] [address] 75481- 8136 Jun, [facility] [place] [address] [place] [id number] [place] [address] 77907 -8253 Jun, Seasonal allergic rhinitis due to other allergic trigger J30.89 [facility] [place] [id number] [place] [address] 18137 -6349 May, Sore throat J02.9 ; Other viral agents as the cause of diseases classified elsewhere B97.89 and Acute upper respiratory infection, unspecified J06.9 [place] [address] [place] [id number] [place] [address] 70206- 1071 May, Paranoid schizophrenia F20.0 and Depression with anxiety F41.8 [place] [address] [place] [id number] [place] [address] 61869- 8334 Apr, Other seasonal allergic rhinitis J30.2 [place] [address] [place] [id number] [place] [address] 44865- 7056 Apr, Paranoid schizophrenia F20.0 and Depression with anxiety F41.8 [facility] [place] [id number] [place] [address] 69924 -7737 Apr, Bronchitis J40 and Sore throat J02.9 [place] [address] [place] [id number] [place] [address] 99205- 3029 Apr, Type 2 diabetes mellitus without complication, without long- term current use of insulin E11.9 [facility] [place] [address] [place] [id number] [place] [address] 85439 -8576 Apr, Bronchitis J40 [place] [address] [place] [id number] [place] [address] 61447- 2400 Apr, [place] [address] [place] [id number] [place] [address] 31427- 3800 Apr, [place] [address] 44211- 3038 Mar, Type 2 diabetes mellitus without complication, [...] R60.9 and Other seasonal allergic rhinitis J30.2 [place] [address] 79868- 7760 Mar, Paranoid schizophrenia F20.0 and Depression with anxiety F41.8 [place] [address] 22505- 2463 Feb, [place] [address] 20552- 9694 Feb, [place] [address] 70810- 5592 Feb, [place] [address] [place] [id number] [place] [address] 89624- 1900 Feb, [place] [address] 55574- 3243 Feb, Type 2 diabetes mellitus without complication, without long- term current use of insulin E11.9 ; ARIAS on CPAP G47.33 and Preoperative evaluation to rule out surgical contraindication Z01.818 [place] [address] 73486- 2441 Feb, Paranoid schizophrenia F20.0 and Depression with anxiety F41.8 [place] [address] [place] [id number] [place] [address] 33111- 4841 Jan, [place] [address] [address]- 1398 18 Jan, 2016 Paranoid schizophrenia F20.0 and Depression with anxiety F41.8 [facility] [address] [facility] [id number] [address]- 5977 17 Jan, 2016 [facility] [address] [place] [id number] [place] [address] 44148- 0417 14 Jan, 2016 Muscle strain T14.8 [facility] [address] [place] [id number] [place] [address] 56122- 6568 10 Jan, 2016 Paranoid schizophrenia F20.0 [facility] [address] [facility] [id number] [place] [address] 54915- 8094 07 Jan, 2016 [facility] [address] [place] [id number] [place] [address] 45078- 5150 05 Jan, 2016 Paranoid schizophrenia F20.0 and Depression with anxiety F41.8 [facility] [address] [place] [id number] [place] [address] 19071- 8608 05 Jan, 2016 [facility] [address] [place] [id number] [place] [address] 65543- 9129 Jan, [facility] [address] [place] [id number] [place] [address] 96343- 4937 28 Dec, 2015 [facility] [id number] [address]- 6443 23 Dec, 2015 Paranoid schizophrenia F20.0 [facility] [address] [id number] [address]- 8918 16 Dec, 2015 Paranoid schizophrenia F20.0 and Depression with anxiety F41.8 [facility] [address] [facility] [id number], [place] [address]- 2947 31 Nov, 2015 [facility] [address] [facility] [id number], [place] [address] 24 Nov, 2015 Paranoid schizophrenia F20.0 [facility] [id number] [place] [phone] Nov, Paranoid schizophrenia F20.0 and Depression with anxiety F41.8 [id number] [place] [id number] Nov, Type 2 diabetes mellitus without complication, without long- term current use of insulin E11.9 ; Paranoid schizophrenia F20.0 ; Chronic obstructive pulmonary disease, unspecified COPD type J44.9 ; Morbid obesity due to excess calories E66.01 and Parkinsonian tremor G20 [id number] [place] [phone] Nov, [id number] [place] [phone] Oct, Paranoid schizophrenia F20.0 [id number] [place] [address] [address] Oct, Paranoid schizophrenia F20.0 [place] [id number] [place] [address] 36994- 9996 Oct, Paranoid schizophrenia F20.0 and Depression with anxiety F41.8 [place] [id number] [place] [address] 74455- 3778 Oct, [place] [id number] [place] [address] 10432- 2345 Oct, Paranoid schizophrenia F20.0 and Depression with anxiety F41.8 [place] [id number] [place] [address] 13546- 3458 Oct, Nasal sore J34.89 [place] [id number] [place] [address] 75441- 4720 Oct, Type 2 diabetes mellitus without complication, without long- term current use of insulin E11.9 ; Depression with anxiety F41.8 ; Hypothyroidism, unspecified type E03.9 and History of lupus Z87.39 [place] [id number] [place] [address] 19096- 4919 Oct, [facility] [id number] [place] [address] [id number] 3684 Oct, Type 2 diabetes mellitus without complication, [...] Z87.39 [facility] [id number] [place] [address] 42662- 9721 Feb, [facility] [id number] [place] [address] 30002- 2796 Jan, [facility] [id number] [place] [address] 24684- 4054 Jan, [facility] [id number] [place] [address] 76768- 8714 Jan, [facility] [id number] [place] [address] [id number]- 9998 Dec, [facility] [id number] [place] [address] [id number] Nov, [facility] [id number] [place] [address] 01663- 5813 Nov, [facility] [id number] [place] [address] [id number]- 2629 Oct, [facility] [id number] [place] [address] 27697- 2966 Oct, [facility] [id number] [place] [address] 49978- 9826 Oct, [facility] [address] [address]78- 2639 12 Sep, 2014 Allergic rhinitis 477.9 [facility] [id number] [address] 0791 11 Sep, 2014 Rhinitis, allergic 477.9 [facility] [id number] [address]- 3490 10 Sep, 2014 Rhinitis, allergic 477.9 [facility] [id number] [address]- 0495 Sep, [facility] [id number], [place] [address]- 6180 August, [facility] [address] [address]- 4617 August, [facility] [address], [place] [address]- 7282 August, [facility] [address] [address]- 2113 Jul, [facility] [place] [facility] [id number] [address]- 8946 Jul, [facility] [address] [address]- 0787 Jul, [facility] [place] [facility] [address], [place] [address]- 2387 16 Jun, 2014 [facility] [place] [facility] [id number] [address]- 4150 16 Jun, 2014 [facility] [place] [facility] [id number], [place] [address]- 1941 Jun, [facility] [place] [facility] [id number], [place] [address]- 9736 Jun, [facility] [place] [facility] [id number], [place] [address]- 9817 Jun, [facility] [place] [facility] [id number], [place] [address]- 0112 Jun, [facility] [place] [facility] [address] [id number] [place] [address]- 3407 Jun, [facility] [place] [facility] [address] [id number] [place] [address]- 6786 Jun, [facility] [place] [facility] [address] [id number] [place] [address]- 6376 May, 2014 [facility] [place] [facility] [address] [id number] [place] [address]- 1390 May, 2014 [facility] [place] [facility] [address] [id number] [place] [address]- 6533 May, 2014 [facility] [place] [facility] [address] [facility] [id number] [place] [address]- 3097 May, 2014 [facility] [place] [facility] [address] [facility] [id number] [place] [address]- 8442 Apr, [facility] [place] [facility] [address] [id number] [place] [address]- 1819 Mar, [facility] [place] [facility] [address] [id number] [place] [address]- 0010 Mar, [facility] [place] [facility] [address] [facility] [id number] [place] [address]- 0964 Mar, [facility] [place] [facility] [address] [id number] [place] [address]- 1435 Mar, [facility] [place] [facility] [address] [id number] [place] [address]- 0533 Mar, [facility] [place] [facility] [address] [id number] [place] 4723 Mar, [facility] [place] [facility] [address] [facility] [id number] [place] 8748 Mar, [facility] [place] [facility] [address] [facility] [id number] [place] [address]- 7959 Mar, [facility] [place] [facility] [address] [id number] [place] [address]- 8125 Mar, [facility] [place] [facility] [address] [id number] [place] [address]- 1185 Feb, [facility] [place] [facility] [address] [id number] [place] [address]- 1816 Feb, [facility] [place] [facility] [address] [id number] [place] [address]- 7755 Feb, [facility] [place] [facility] [address] [id number] [place] [address]- 6710 Feb, [facility] [place] [facility] [address] [id number] [place] [address]- 9844 Feb, [facility] [place] [facility] [address] [id number] [place] [address]- 9071 Feb, [facility] [place] [facility] [address] [id number] [place] [address]- 6047 Feb, [facility] [place] [facility] [address] [id number] [place] [address]- 8823 Feb, [facility] [place] [facility] [address] [id number] [place] [address]- 7673 Jan, [facility] [place] [facility] [address] [id number] [place] [address]- 7399 Jan, [facility] [place] [facility] [address] [id number] [place] [address]- 2643 16 Jan, 2014 [facility] [place] [facility] [address] [id number] [place] [address]- 4606 16 Jan, 2014 [facility] [place] [facility] [address] [id number] [place] [address]- 9075 15 Jan, 2014 [facility] [place] [facility] [address] [id number] [place] [address]- 0537 15 Jan, 2014 [facility] [place] [facility] [address] [id number] [place] [address]- 8025 14 Jan, 2014 [facility] [place] [facility] [address] [id number] [place] [address]- 7773 14 Jan, 2014 [facility] [place] [facility] [address] [id number] [place] [address]- 8853 14 Jan, 2014 [facility] [place] [facility] [address] [id number] [place] [address]- 5370 14 Jan, 2014 [facility] [place] [facility] [address] [id number] [place] [address]- 1018 18 Dec, 2013 [facility] [place] [facility] [address] [id number] [place] [address]- 1058 18 Dec, 2013 [facility] [place] [facility] [address] [id number] [place] [address]- 8988 10 Dec, 2013 [facility] [place] [facility] [address] [id number] [place] [address]- 6602 10 Dec, 2013 [facility] [place] [facility] [address] [id number] [place] [address]- 9517 Nov, [facility] [place] [facility] [address] [id number] [place] [address]- 2803 Nov, [facility] [place] [facility] [address] [id number] [place] [address]- 2002 Nov, [facility] [place] [facility] [address] [id number] [place] [address]- 4033 Nov, [facility] [place] [facility] [address] [id number] [place] [address]- 5733 Nov, [facility] [place] [facility] [address] [id number] [place] [address]- 6894 Oct, [facility] [place] [facility] [address] [id number] [place] [address]- 4884 Oct, [facility] [place] [facility] [address] [id number] [place] [address]- 8844 Oct, [facility] [place] [facility] [address] [id number] [place] [address]- 6581 Oct, [facility] [place] [facility] [address] [id number] [place] [address]- 5518 Sep, [facility] [place] [facility] [address] [id number] [place] [address]- 4153 Sep, [facility] [place] [facility] [address] [id number] [place] [address]- 2568 Sep, [facility] [place] [facility] [address] [id number] [place] [address]- 3914 Sep, [facility] [place] [facility] [address] [id number] [place] [address]- 8452 Sep, [facility] [place] [facility] [address] [id number] [place] [address]- 3787 Sep, [facility] [place] [facility] [address] [id number] [place] [address]- 7212 Sep, [facility] [place] [facility] [address] [id number] [place] [address]- 6479 Sep, [facility] [place] [facility] [address] [id number] [place] [address]- 0497 August, [facility] [place] [facility] [address] [id number] [place] [address]- 7169 August, [facility] [place] [facility] [address] [id number] [place] [address]- 5334 August, [facility] [place] [facility] [address] [id number] [place] [address]- 3863 August, [facility] [place] [facility] [address] [id number] [place] [address]- 8602 August, [facility] [place] [facility] [address] [id number] [place] [address]- 9509 August, [facility] [place] [facility] [address] [id number] [place] [address]- 0890 August, [facility] [place] [facility] [address] [id number] [place] [address]- 6843 Jul, [facility] [place] [facility] [address] [id number] [place] [address]- 3864 Jul, [facility] [place] [facility] [address] [id number] [place] [address]- 0378 Jul, [facility] [place] [facility] [address] [id number] [place] [address]- 8528 Jul, [facility] [place] [facility] [address] [id number] [place] [address]- 5395 Jul, [facility] [place] [facility] [address] [id number] [place] [address]- 0847 Jul, [facility] [place] [facility] [address] [id number] [place] [address]- 5503 Jul, [facility] [place] [facility] [address] [id number] [place] [address]- 5493 Jul, [facility] [place] [facility] [address] [id number] [place] [address]- 0431 Jul, [facility] [place] [facility] [address] [id number] [place] [address]- 4282 Jul, [facility] [place] [facility] [address] [id number] [place] [address]- 4991 Jul, [facility] [place] [facility] [address] [id number] [place] [address]- 8057 Jul, [facility] [place] [facility] [address] [id number] [place] [address]- 3977 Jun, [facility] [place] [facility] [address] [id number] [place] [address]- 3318 Jun, [facility] [place] [facility] [address] [id number] [place] 9889 Jun, [facility] [place] [facility] [address] [id number] [place] [address]- 2994 Jun, [facility] [address] [id number] [place] [address]- 7698 Jun, [facility] [place] [facility] [address] [id number] [place] [address]- 4316 May, [facility] [place] [facility] [address] [id number] [place] [address]- 9826 May, [facility] [place] [facility] [address] [id number] [place] [address]- 1461 May, [facility] [place] [facility] [address] [id number] [place] [address]- 7205 May, [facility] [place] [facility] [address] [facility] [id number] [place] [address]- 3031 May, [facility] [place] [facility] [address] [facility] [id number] [place] [address]- 4113 May, [facility] [place] [facility] [address] [facility] [id number] [place] [address]- 0006 May, [facility] [place] [facility] [id number] [place] [address]- 2733 May, [facility] [place] [facility] [address] [facility] [id number] [place] [address]- 6653 Mar, [facility] [place] [facility] [address] [facility] [id number] [place] [address]- 3910 Mar, [facility] [place] [facility] [address] [id number] [place] [address]- 4880 Mar, [facility] [place] [facility] [address] [id number] [place] 1162 Mar, [facility] [place] [facility] [address] [facility] [id number] [place] 3029 Mar, [facility] [place] [facility] [address] [facility] [id number] [place] [address]- 8595 Mar, [facility] [place] [facility] [address] [id number] [place] [address]- 7769 Feb, [facility] [place] [facility] [address] [id number] [place] 9892 Feb, [facility] [place] [facility] [address] [id number] [place] [address]- 6360 Jan, [facility] [place] [facility] [address] [id number] [place] [address]- 8344 Jan, [facility] [place] [facility] [address] [id number] [place] [address]- 5459 Jan, [facility] [place] [facility] [address] [id number] [place] [address]- 0343 Jan, [facility] [place] [facility] [address] [id number] [place] [address]- 6186 Jan, [facility] [place] [facility] [address] [id number], [place] [address]- 5923 Jan, [facility] [place] [facility] [address] [id number] [place] [address]- 7454 Jan, [facility] [place] [facility] [address] [id number], [place] [address]- 7783 Jan, [facility] [place] [facility] [address] [id number], [place] [address]- 6524 Jan, [facility] [place] [facility] [address] [id number], [place] [address]- 4630 Jan, [facility] [place] [facility] [address] [id number], [place] [address]- 3670 Dec, [facility] [place] [facility] [address] [id number], [place] [address]- 7430 Nov, [facility] [place] [facility] [address] [id number], [place] [address]- 4935 Nov, [facility] [place] [facility] [address] [id number], [place] [address]- 0926 Nov, [facility] [address], [place] [address]- 4590 Oct, [facility] [address] [address]- 3406 Oct, [facility] [address], [place] [address]- 4906 August, [facility] [address] [address]- 6074 Apr, [facility] [id number] [place] [address] 35375- 5235 Apr, [facility] [address] [address]- 0694 Feb, [facility] [address], [place] [address]- 5809 Feb, [facility] [address] [address]- 7318 Dec, [facility] [address] 2886 Dec, [facility] [address] [address]- 5705 Oct, [facility] [address] [address]- 1928 Oct, [facility] [id number] [address]- 5091 Oct, [facility] [id number] [address]- 3857 Jul, IMMUNIZATIONS No Known Immunizations SOCIAL HISTORY [...] for psychosis/mental illness , last one in [place] at [facility] 4 years ago
--- OUTSIDE RECORDS SUMMARY | 2018-09-02 13:56 | XMS REPORT ---
Author Author STRICKLANDSOTO Carias Organization [facility] [place] Address [address] [place] [address] Care Team Providers Care Babbitt Spinner Name Role Phone SOTO STRICKLAND Unavailable PROBLEMS Type Condition ICD9-CM Code JPW40-VC Code Onset Dates Condition Status SNOMED Code Problem Other seasonal allergic rhinitis J30.2 Active 168167707 Problem Gastroesophageal reflux disease, esophagitis presence not specified K21.9 Active 544694655 Problem Tobacco abuse Z72.0 Active 022743477 Problem Seasonal allergic rhinitis due to pollen J30.1 Active 63446960 Problem History of lupus Z87.39 Active 236299792 Problem COPD exacerbation J44.1 Active 801604308 Problem OAB (overactive bladder) N32.81 Active 664955593 Problem Morbid obesity due to excess calories E66.01 Active 875691957 Problem Dyslipidemia E78.5 Active 995473122 Problem Migraine without aura and without status migrainosus, not intractable G43.009 Active 954831655 Problem Hypothyroidism (acquired) E03.9 Active 862269583 Problem Essential hypertension I10 Active 20035145 Problem Type 2 diabetes mellitus without complication, without long-term current use of insulin E11.9 Active 272289067 Problem Gastroesophageal reflux disease without esophagitis K21.9 Active 584386826 Problem Chronic pain syndrome G89.4 Active 570317408 Problem Paranoid schizophrenia F20.0 Active 46299422 Problem Primary insomnia F51.01 Active 6261352 Problem DM neuro manif type II E11.49 Active 61224227 Problem Depression with anxiety F41.8 Active 779169129 Problem Seasonal allergic rhinitis due to other allergic trigger J30.89 Active 682437856 Problem Menopausal syndrome (hot flashes) N95.1 Active 425135732 Problem Chronic obstructive pulmonary disease, unspecified COPD type J44.9 Active 75396976 Problem Schizoaffective disorder, depressive type F25.1 Active 57564894 Problem Other allergic rhinitis J30.89 Active 858606879 ALLERGIES No Information ENCOUNTERS Encounter Location Date Diagnosis [facility] [place] [id number] [place] [address] 56750- 8184 Nov, [facility] [place] [address] 89688- 2688 Sep, [place] [address] 83794- 2526 August, Paranoid schizophrenia F20.0 [place] [address] 78484- 2264 August, History of lupus Z87.39 and Chronic pain syndrome G89.4 [place] [address] 03747- 9852 August, [facility] [address] 14170 -0215 August, Seasonal allergic rhinitis, unspecified trigger J30.2 and BMI 45.0-49.9, adult Z68.42 [place] [address] 58094- 6802 Jul, Schizoaffective disorder, depressive type F25.1 [place] [address] 60083- 2722 Jul, [place] [address] 90189- 8767 Jul, Hypothyroidism (acquired) E03.9 [place] [address] 45487- 0368 Jul, Chronic obstructive pulmonary disease, unspecified COPD type J44.9 and Type 2 diabetes mellitus without complication, without long-term current use of insulin E11.9 [place] [id number] [place] [address] 42004- 8308 Jul, Paranoid schizophrenia F20.0 [place] [address] 41965- 0786 Jun, Hypothyroidism (acquired) E03.9 and Seasonal allergic rhinitis due to pollen J30.1 [facility] [id number] [place] [address] 89002 -2505 Jun, Shortness of breath at rest R06.02 ; COPD exacerbation J44.1 and BMI 45.0-49.9, adult Z68.42 [facility] [place] [address] 60568- 5687 Jun, [facility] [place] [address] 85683- 1374 Jun, Paranoid schizophrenia F20.0 ; Depression with anxiety F41.8 and BMI 45.0-49.9, adult Z68.42 [facility] [place] [address] 73086- 7477 Jun, Schizoaffective disorder, depressive type F25.1 [facility] [address] [id number] Jun, Dental caries K02.9 [facility] [place] [address] 17567- 8674 Jun, Paranoid schizophrenia F20.0 [facility] [place] [address] 14583- 5962 May, Migraine without aura and without status migrainosus, not intractable G43.009 ; DM neuro manif type II E11.49 and Type 2 diabetes mellitus without complication, without long-term current use of insulin E11.9 [facility] [place] [id number] [place] [address] 47045- 5413 May, Migraine without aura and without status migrainosus, not intractable G43.009 [facility] [place] [address] 72179- 9945 May, Depression with anxiety F41.8 [facility] [address] [id number] May, [place] [id number] [place] [address] 92276- 7278 May, [place] [address] 36447- 1771 May, [place] [id number] [place] [address] 32553- 5751 May, Hypothyroidism (acquired) E03.9 [place] [id number] [place] [address] 80684- 5405 May, Paranoid schizophrenia F20.0 [place] [address] 66950- 2125 May, Type 2 diabetes mellitus without complication, [...] N32.81 and Controlled substance agreement signed Z79.899 [place] [id number] [place] [address] 17019- 6001 May, Controlled substance agreement signed Z79.899 [place] [id number] [place] [address] 76749- 1852 Apr, [facility] [address] [id number] Apr, Dental examination Z01.20 [place] [id number] [place] [address] 27989- 2411 Apr, Paranoid schizophrenia F20.0 [place] [id number] [place] [address] 37734- 4360 Apr, Hypertension, unspecified type I10 [facility] [place] [id number] [place] [address] 80858- 2430 Apr, Paranoid schizophrenia F20.0 [facility] [place] [id number] [place] [address] 10903- 9709 Apr, [facility] [place] [id number] [place] [address] 62211- 5127 Apr, Tobacco abuse Z72.0 [facility] [place] [id number] [place] [address] 66636- 1019 Apr, [facility] [place] [id number] [place] [address] 98061- 1038 Mar, [place] [id number] [place] [address] 77194- 4734 Mar, Paranoid schizophrenia F20.0 and BMI 45.0-49.9, adult Z68.42 [place] [id number] [place] [address] 94238- 2664 Mar, Schizoaffective disorder, depressive type F25.1 [place] [id number] [place] [address] 87135- 3755 Mar, [place] [id number] [place] [address] 97708- 2660 Mar, Hypothyroidism, unspecified type E03.9 [facility] [place] [id number] [place] [address] 85684- 0360 Mar, Schizoaffective disorder, depressive type F25.1 [facility] [id number] [place] [address] 94777 -7330 Feb, Gastroenteritis K52.9 and BMI 45.0-49.9, adult Z68.42 [facility] [place] [id number] [place] [address] 51909- 7160 Feb, [facility] [place] [id number] [place] [address] 17918- 9237 Feb, [facility] [place] [address] 39797- 5679 Feb, [facility] [place] [address] 15492- 9207 Feb, [place] [address] 37891- 4486 Feb, Paranoid schizophrenia F20.0 [place] [address] 65246- 7167 Feb, Gastroesophageal reflux disease without esophagitis K21.9 ; Other seasonal allergic rhinitis J30.2 ; Other allergic rhinitis J30.89 ; Tobacco abuse Z72.0 and BMI 40.0-44.9, adult Z68.41 [place] [address] 16066- 8256 Feb, Onychomycosis B35.1 ; Callus of foot L84 and DM neuro manif type II E11.49 [place] [id number] [place] [address] 49207- 1220 Jan, Chronic allergic rhinitis J30.9 [place] [id number] [place] [address] 82656- 7290 Jan, [facility] [place] [id number] [place] [address] 79406- 8401 Jan, Schizoaffective disorder, depressive type F25.1 [facility] [place] [id number] [place] [address] 52941- 5383 Jan, [facility] [address] 71465 -0937 Jan, Sore throat J02.9 and Seasonal allergic rhinitis due to other allergic trigger J30.89 [facility] [place] [id number] [place] [address] 45794- 3756 Jan, [place] [id number] [address]- 2748 Jan, [facility] [id number] [place] [address] 39343 -4665 Jan, Chronic allergic rhinitis J30.9 [facility] [place] [id number] [place] [address] 06110- 8810 Dec, Paranoid schizophrenia F20.0 ; Primary insomnia F51.01 and Schizoaffective disorder, depressive type F25.1 [facility] [place] [id number] [place] [address] 35968- 2345 21 Dec, 2016 Chronic pain syndrome G89.4 ; Cervicalgia of occipito- atlanto-axial region M54.2 ; Menopausal syndrome (hot flashes) N95.1 and Encounter for immunization Z23 [facility] [place] [id number] [place] [address] 25551- 7179 14 Dec, 2016 [facility] [place] [id number] [place] [address] 10476- 1692 13 Dec, 2016 [facility] [place] [id number] [place] [address] 51848- 7462 08 Dec, 2016 Paranoid schizophrenia F20.0 [facility] [place] [id number] [place] [address] 28455- 3769 Dec, Schizoaffective disorder, depressive type F25.1 [facility] [place] [id number] [place] [address] 85679- 2097 Nov, Hypothyroidism, unspecified type E03.9 [facility] [id number] [place] [address] 27385 -6851 Nov, Acute seasonal allergic rhinitis due to other allergen J30.89 [facility] [place] [id number] [place] [address] 65274- 5955 Nov, [facility] [place] [id number] [place] [address] 44177- 9721 Nov, Hypothyroidism, unspecified type E03.9 and Other elevated white blood cell (WBC) count D72.828 [place] [id number] [place] [address] 24284- 6640 Nov, Schizoaffective disorder, depressive type F25.1 [place] [id number] [place] [address] 71138- 3010 Nov, Paranoid schizophrenia F20.0 [place] [id number] [place] [address] 50671- 3459 Nov, Type 2 diabetes mellitus without complication, without long- term current use of insulin E11.9 ; Morbid obesity due to excess calories E66.01 and Chronic pain syndrome G89.4 [place] [id number] [place] [address] 04579- 9014 Oct, Paranoid schizophrenia F20.0 [place] [id number] [place] [address] 00357- 6653 Oct, [place] [id number] [place] [address] 09322- 6983 Oct, Schizoaffective disorder, depressive type F25.1 [place] [id number] [place] [address] 43641- 6006 Oct, Hypothyroidism, unspecified type E03.9 and Other elevated white blood cell (WBC) count D72.828 [place] [id number] [place] [address] 65596- 2778 Oct, Morbid obesity due to excess calories E66.01 ; Chronic obstructive pulmonary disease, unspecified COPD type J44.9 ; History of lupus Z87.39 ; Hypothyroidism, unspecified type E03.9 ; Gastroesophageal reflux disease without esophagitis K21.9 ; Primary insomnia F51.01 and Chronic pain syndrome G89.4 [place] [address] [place] [address] 01549- 9776 Sep, [place] [id number] [place] [address] 61529- 2648 Sep, [facility] [place] [address] [address]- 7286 Sep, [facility] [place] [address] [address]- 2973 Sep, Paranoid schizophrenia F20.0 [facility] [place] [address] [address]- 3025 Sep, [facility] [place] [id number] [place] [address] 84351- 9286 Sep, Paranoid schizophrenia F20.0 [facility] [place] [id number] [place] [address] 05783- 6402 Sep, [facility] [place] [id number] [place] [address] 82394- 5117 August, Paranoid schizophrenia F20.0 [facility] [place] [address] [address]- 8551 Jul, [facility] [place] [address] [address]- 0957 Jul, Type 2 diabetes mellitus without complication, without long- term current use of insulin E11.9 ; Morbid obesity due to excess calories E66.01 ; Depression with anxiety F41.8 ; Hypothyroidism, unspecified type E03.9 ; Seasonal allergic rhinitis due to other allergic trigger J30.89 ; Pain, dental K08.89 and Gastroesophageal reflux disease without esophagitis K21.9 [facility] [id number] [id number] Jul, Dental examination Z01.20 [facility] [place] [address] [address]- 9566 07 Jul, 2016 Paranoid schizophrenia F20.0 [facility] [place] [address] [address]- 8800 Jun, Paranoid schizophrenia F20.0 and Depression with anxiety F41.8 [facility] [place] [id number] [place] [address] 41477- 7792 10 Jun, 2016 Paranoid schizophrenia F20.0 and Depression with anxiety F41.8 [place] [id number] [place] [address] 43475- 6501 09 Jun, 2016 [place] [id number] [place] [address] 23265- 1053 Jun, [facility] [place] [id number] [place] [address] 23464 -5875 Jun, Seasonal allergic rhinitis due to other allergic trigger J30.89 [facility] [place] [id number] [place] [address] 33310 -2212 May, Sore throat J02.9 ; Other viral agents as the cause of diseases classified elsewhere B97.89 and Acute upper respiratory infection, unspecified J06.9 [place] [address] 02553- 9755 08 May, 2016 Paranoid schizophrenia F20.0 and Depression with anxiety F41.8 [place] [id number] [place] [address] 24147- 8415 Apr, Other seasonal allergic rhinitis J30.2 [place] [id number] [place] [address] 65842- 4350 Apr, Paranoid schizophrenia F20.0 and Depression with anxiety F41.8 [facility] [place] [id number] [place] [address] 06550 -5125 Apr, Bronchitis J40 and Sore throat J02.9 [place] [id number] [place] [address] 41252- 4369 Apr, Type 2 diabetes mellitus without complication, without long- term current use of insulin E11.9 [facility] [place] [id number] [place] [address] 99811 -7971 Apr, Bronchitis J40 [place] [id number] [place] [address] 46633- 5738 Apr, [place] [id number] [place] [address] 52327- 9344 Apr, [place] [address] 66801- 5489 Mar, Type 2 diabetes mellitus without complication, [...] R60.9 and Other seasonal allergic rhinitis J30.2 [place] [address] 19812- 6313 Mar, Paranoid schizophrenia F20.0 and Depression with anxiety F41.8 [place] [address] 02746- 6814 Feb, [place] [address] 92061- 5224 Feb, [place] [address] 41936- 9774 Feb, [place] [id number] [place] [address] 49581- 1969 Feb, [place] [address] 91073- 6097 Feb, Type 2 diabetes mellitus without complication, without long- term current use of insulin E11.9 ; ARIAS on CPAP G47.33 and Preoperative evaluation to rule out surgical contraindication Z01.818 [place] [address] 91427- 7245 Feb, Paranoid schizophrenia F20.0 and Depression with anxiety F41.8 [place] [address] 37946- 2467 18 Jan, 2016 [facility] [place] [address] [facility] [id number], [place] [address]- 7940 18 Jan, 2016 Paranoid schizophrenia F20.0 and Depression with anxiety F41.8 [facility] [place] [address] [facility] [id number] [place] [address]- 3688 17 Jan, 2016 [facility] [place] [address] [facility] [id number] [place] [address] 33757- 8799 14 Jan, 2016 Muscle strain T14.8 [facility] [place] [address] [facility] [id number], [place] [address]- 9179 10 Jan, 2016 Paranoid schizophrenia F20.0 [facility] [place] [address] [facility] [id number] [place] [address] 61799- 3119 07 Jan, 2016 [facility] [place] [address] [place] [id number] [address]- 1344 05 Jan, 2016 Paranoid schizophrenia F20.0 and Depression with anxiety F41.8 [facility] [place] [address] [facility] [id number], [place] [address]- 8841 05 Jan, 2016 [facility] [place] [address] [facility] [id number], [place] [address]- 5556 03 Jan, 2016 [facility] [place] [address] [facility] [id number], [place] [address]- 8653 28 Dec, 2015 [facility] [place] [address] [facility] [id number], [place] [address]- 3933 23 Dec, 2015 Paranoid schizophrenia F20.0 [facility] [place] [address] [facility] [id number], [place] [address]- 5719 16 Dec, 2015 Paranoid schizophrenia F20.0 and Depression with anxiety F41.8 [facility] [place] [address] [facility] [id number], [place] [address]- 9562 31 Nov, 2015 [facility] [place] [address] [facility] [id number], [place] [address]- 2934 24 Nov, 2015 Paranoid schizophrenia F20.0 [place] [address] [address]- 0637 Nov, Paranoid schizophrenia F20.0 and Depression with anxiety F41.8 [place] [id number] [place] [address] 96962- 9474 Nov, Type 2 diabetes mellitus without complication, without long- term current use of insulin E11.9 ; Paranoid schizophrenia F20.0 ; Chronic obstructive pulmonary disease, unspecified COPD type J44.9 ; Morbid obesity due to excess calories E66.01 and Parkinsonian tremor G20 [place] [id number] [place] [address] 64164- 6778 Nov, [place] [id number] [place] [address] 60450- 6562 Oct, Paranoid schizophrenia F20.0 [place] [id number] [place] [address] 72457- 4682 Oct, Paranoid schizophrenia F20.0 [place] [id number] [place] [address] 95570- 6778 Oct, Paranoid schizophrenia F20.0 and Depression with anxiety F41.8 [place] [id number] [place] [address] 67516- 6802 Oct, [place] [id number] [place] [address] 83834- 9950 Oct, Paranoid schizophrenia F20.0 and Depression with anxiety F41.8 [place] [address] [place] [address] 64095- 0952 Oct, Nasal sore J34.89 [place] [id number] [place] [address] 86325- 7136 Oct, Type 2 diabetes mellitus without complication, without long- term current use of insulin E11.9 ; Depression with anxiety F41.8 ; Hypothyroidism, unspecified type E03.9 and History of lupus Z87.39 [place] [id number] [place] [address] 11517- 3536 Oct, [facility] [place] [id number] [place] [address] 36928- [phone] Oct, Type 2 diabetes mellitus without complication, [...] edema R60.9 and History of lupus Z87.39 [facility], [place], [facility] [id number] [place] [address] [phone] Feb, [facility], [place], [facility] [id number] [place] [address] [phone] Jan, [facility], [place], [facility] [id number] [place] [address] [phone] Jan, [facility], [place], [facility] [id number] [place] [address] [phone] Jan, [facility], [place], [facility] [id number] [place] [address] [phone] Dec, [facility], [place], [facility] [id number] [place] [address] [address]- [address] Nov, [facility] [place] [id number] [place] [address] 58997- 2546 Nov, [facility] [place] [id number] [place] [address] 2546 Oct, [facility] [place] [id number] [place] [address]18- 2546 Oct, [facility] [place] [id number] [place] [address] 12483- 2546 Oct, [facility] [place] [address] [facility] [id number] [place] [address] 48[address] Sep, [facility]9 [facility] [address] [facility] [id number] [place] [address] Sep, Rhinitis, allergic 477.9 [facility] [address] [facility] [id number] [place] [address]- 5458 Sep, Rhinitis, allergic 477.9 [facility] [address] [id number] [place] [address] 5934 Sep, [facility] [address] [facility] [id number] [place] [address]- 2926 August, [facility] [place] [address] [facility] [id number] [place] [address]- 3378 August, [facility] [place] [address] [address] 9[address] August, [facility] [place] [address] [id number] [address]- 6489 Jul, [facility] [place] [address] [id number] [address]- 3[address] 14 Jul, 2014 [facility] [place] [address] [id number] [address]- 7375 Jul, [facility] [place] [address] [id number] [address]- 9369 16 Jun, 2014 [facility] [address] [facility] [id number] [place] [address]- 7138 16 Jun, 2014 [facility] [address] [facility] [id number] [place] [address] Jun, [facility] [address] [facility] [id number] [place] [id number] 8563 Jun, [facility] [address] [facility] [id number] [place] 1352 Jun, [facility] [place] [facility] [address] [id number] [place] [address]- 3130 Jun, [facility] [place] [facility] [address] [id number] [place] [address]- 1611 Jun, 2014 [facility] [place] [facility] [address] [id number] [place] 0176 Jun, 2014 [facility] [place] [facility] [address] [id number] [place] [address]- 2584 May, 2014 [facility] [place] [facility] [address] [id number] [place] [address]- 0281 May, 2014 [facility] [place] [facility] [address] [id number] [place] [address]- 5421 May, 2014 [facility] [place] [facility] [address] [id number] [place] [address]- 1940 May, [facility] [place] [facility] [address] [id number] [place] [address]- 1481 Apr, [facility] [place] [facility] [address] [id number] [place] [address]- 4115 Mar, [facility] [place] [facility] [address] [id number] [place] [address]- 7754 Mar, [facility] [place] [facility] [address] [id number] [place] [address]- 2342 Mar, [facility] [place] [facility] [address] [id number] [place] [address]- 7980 Mar, [facility] [place] [facility] [address] [id number] [place] [address]- 9764 Mar, [facility] [place] [facility] [address] [id number] [place] [address]- 7162 Mar, [facility] [place] [facility] [address] [id number] [place] [address]- 9217 Mar, [facility] [place] [facility] [address] [id number] [place] [address]- 3863 Mar, [facility] [place] [facility] [address] [id number] [place] [address]- 5721 Mar, [facility] [place] [facility] [address] [id number] [place] [address]- 5729 Feb, [facility] [place] [facility] [address] [id number] [place] [address]- 4443 Feb, [facility] [place] [facility] [address] [id number] [place] [address]- 6167 Feb, [facility] [place] [facility] [address] [id number] [place] [address]- 3483 Feb, [facility] [place] [facility] [address] [id number] [place] [address]- 2575 Feb, [facility] [place] [facility] [address] [id number] [place] [address]- 3535 Feb, [facility] [place] [facility] [address] [id number] [place] [address]- 8148 Feb, [facility] [place] [facility] [address] [id number] [place] [address]- 8693 Feb, [facility] [place] [facility] [address] [id number] [place] [address]- 9577 Jan, [facility] [place] [facility] [address] [id number] [place] [address]- 6512 Jan, [facility] [place] [facility] [address] [id number] [address]- 1740 16 Jan, 2014 [facility] [place] [facility] [address] [id number] [place] [address]- 4588 16 Jan, 2014 [facility] [place] [facility] [address] [id number] [address]- 2697 15 Jan, 2014 [facility] [place] [facility] [address] [id number], [place] [address]- 6736 15 Jan, 2014 [facility] [place] [facility] [address] [id number] [place] [address]- 7747 14 Jan, 2014 [facility] [place] [facility] [address] [id number] [place] [address]- 9025 14 Jan, 2014 [facility] [place] [facility] [address] [id number] [place] [address]- 1261 14 Jan, 2014 [facility] [place] [facility] [address] [id number] [place] [address]- 8986 14 Jan, 2014 [facility] [place] [facility] [address] [id number] [place] [address]- 0255 18 Dec, 2013 [facility] [place] [facility] [address] [id number] [place] [address]- 7247 18 Dec, 2013 [facility] [place] [facility] [address] [id number] [place] [address]- 3973 10 Dec, 2013 [facility] [place] [facility] [address] [id number] [place] [address]- 7104 10 Dec, 2013 [facility] [place] [facility] [address] [id number] [place] [address]- 0988 Nov, [facility] [place] [facility] [address] [id number] [place] [address]- 5253 Nov, [facility] [place] [facility] [address] [id number] [place] [address]- 7688 Nov, [facility] [place] [facility] [address] [id number] [place] [address]- 6770 Nov, [facility] [place] [facility] [address] [id number] [place] [address]- 0534 Nov, [facility] [place] [facility] [address] [id number] [place] [address]- 0470 Oct, [facility] [place] [facility] [address] [id number] [place] [address]27 17 Oct, 2013 [facility] [place] [facility] [address] [id number] [place] [address]- 0273 Oct, [facility] [place] [facility] [address] [id number] [place] [address]- 2253 Oct, [facility] [place] [facility] [address] [id number] [place] [address]- 6288 Sep, [facility] [place] [facility] [address] [id number] [place] [address]- 7757 Sep, [facility] [place] [facility] [address] [id number] [place] [address]- 9800 Sep, [facility] [place] [facility] [address] [id number] [place] [address]- 5877 Sep, [facility] [place] [facility] [address] [id number] [place] [address]- 8226 Sep, [facility] [place] [facility] [address] [id number] [place] [address]- 4818 Sep, [facility] [place] [facility] [address] [id number] [place] [address]- 4799 Sep, [facility] [place] [facility] [address] [id number] [place] [address]- 5576 Sep, [facility] [place] [facility] [address] [id number] [place] [address]- 1804 August, [facility] [place] [facility] [address] [id number] [place] [address]- 7798 August, [facility] [place] [facility] [address] [id number], [place] [address]- 6488 August, [facility] [place] [facility] [address] [id number] [place] [address]- 4904 August, [facility] [place] [facility] [address] [id number] [place] [address]- 0415 August, [facility] [place] [facility] [address] [id number] [place] [address]- 4719 August, [facility] [place] [facility] [address] [id number] [place] [address]- 4737 August, [facility] [place] [facility] [address] [id number] [place] [address]- 0057 Jul, [facility] [place] [facility] [address] [id number] [place] [address]- 3588 Jul, [facility] [place] [facility] [address] [id number] [place] [address]- 4638 Jul, [facility] [place] [facility] [address] [id number] [place] [address]- 1783 Jul, [facility] [place] [facility] [address] [id number] [place] [address]- 2465 Jul, [facility] [place] [facility] [address] [id number] [place] [address]- 8310 Jul, [facility] [place] [facility] [address] [id number] [place] [address]- 9781 Jul, [facility] [place] [facility] [address] [id number] [place] [address]- 7885 Jul, [facility] [place] [facility] [address] [id number] [place] [address]- 1661 Jul, [facility] [place] [facility] [address] [id number] [place] [address]- 6042 Jul, [facility] [place] [facility] [address] [id number] [place] [address]- 6170 Jul, [facility] [place] [facility] [address] [id number] [place] [address]- 0224 Jul, [facility] [place] [facility] [address] [id number] [place] [address]- 3699 Jun, [facility] [place] [facility] [address] [id number] [place]- 0646 Jun, [facility] [place] [facility] [address] [id number] [place] 1258 Jun, [facility] [place] [facility] [address] [id number] [place] [address]- 7239 Jun, [facility] [place] [facility] [address] [id number] [place] [address]- 2992 Jun, [facility] [place] [facility] [address] [id number] [place] [address]- 3248 May, [facility] [place] [facility] [address] [id number] [place] [address]- 1756 May, [facility] [place] [facility] [address] [id number] [place] [address]- 5888 May, [facility] [place] [facility] [address] [id number] [place] [address]- 7501 May, [facility] [place] [facility] [address] [id number] [place] [address]- 8795 May, [facility] [place] [facility] [address] [id number] [place] [address]- 8170 May, [facility] [place] [facility] [address] [id number] [place] [address]- 6350 May, [facility] [place] [facility] [address] [id number] [place] [address]- 3705 May, [facility] [place] [facility] [address] [id number] [place] [address]- 7080 Mar, [facility] [place] [facility] [address] [id number] [place] [address]- 1361 Mar, [facility] [place] [facility] [address] [id number] [place] [address]- 2077 Mar, [facility] [place] [facility] [address] [id number] [place] [address]- 6883 Mar, [facility] [place] [facility] [address] [facility] [id number] [place] [address]- 5503 Mar, [facility] [place] [facility] [address] [id number] [place] [address]- 5818 Mar, [facility] [place] [facility] [address] [id number] [place] [address]- 6285 Feb, [facility] [place] [facility] [address] [id number] [place] [address]- 8210 Feb, [facility] [place] [facility] [address] [id number] [place] [address]- 5267 Jan, [facility] [place] [facility] [address] [id number] [place] [address]- 9283 Jan, [facility] [place] [facility] [address] [id number] [place] [address]- 1817 Jan, [facility] [place] [facility] [address] [id number] [place] [address]- 4887 Jan, [facility] [place] [facility] [address] [id number] [place] [address]- 3142 Jan, [facility] [place] [facility] [address] [id number] [place] [address]- 4939 Jan, [facility] [place] [facility] [address] [id number] [place] [address]- 3344 Jan, [facility] [place] [facility] [address] [id number] [place] [address]- 3956 Jan, [facility] [place] [facility] [address] [id number] [place] [address]- 7558 Jan, [facility] [place] [facility] [address] [id number] [place] [address]- 5134 Jan, [facility] [place] [facility] [address] [id number] [place] [address]- 9241 16 Dec, 2012 [facility] [place] [facility] [address] [id number] [place] [address]- 2353 Nov, [facility] [place] [facility] [address] [id number] [place] [address]- 5448 Nov, [facility] [place] [address] [facility] [id number], [place] [address]- 6935 Nov, [facility] [place] [address]005[address] [address]- 1455 Oct, [facility] [place] [address] [address]- 1386 Oct, [facility] [place] [address] [address]- 8421 August, [facility] [place] [address] [facility] [id number], [place] [address]- 7859 Apr, [facility] [place] [address] [address]- 1285 Apr, [facility] [place] [address] 7288 Feb, [facility] [place] [address] [address]- 6443 Feb, [facility] [place] [address] [address]- 2089 Dec, [facility] [place] [address] [address]- 6586 Dec, [facility] [place] [address] [id number] [address]- 2403 Oct, [facility] [place] [address] [id number] [address]- 1792 Oct, [facility] [place] [id number] 7626 Oct, [facility] [place] [address] [id number] [address]- 9167 Jul, IMMUNIZATIONS No Known Immunizations SOCIAL HISTORY Never Assessed REASON FOR VISIT Refill request PLAN OF CARE VITAL SIGNS MEDICATIONS Unknown [...] illness , last one in [facility] 4 years ago
--- OUTSIDE RECORDS SUMMARY | 2018-09-02 13:57 | XMS REPORT ---
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 Name Role Phone UMESH PINEDA Unavailable PROBLEMS Type Condition ICD9-CM Code UTE87-NB Code Onset Dates Condition Status SNOMED Code Problem Other allergic rhinitis J30.89 Active 015471389 Problem Tobacco abuse Z72.0 Active 886255915 Problem Other seasonal allergic rhinitis J30.2 Active 056874430 Problem COPD exacerbation J44.1 Active 393131121 Problem OAB (overactive bladder) N32.81 Active 159115254 Problem Hypothyroidism (acquired) E03.9 Active 687287842 Problem Morbid obesity due to excess calories E66.01 Active 279870815 Problem Chronic obstructive pulmonary disease, unspecified COPD type J44.9 Active 63141882 Problem Migraine without aura and without status migrainosus, not intractable G43.009 Active 763713802 Problem Gastroesophageal reflux disease, esophagitis presence not specified K21.9 Active 539168551 Problem Essential hypertension I10 Active 34990315 Problem Dyslipidemia E78.5 Active 541751321 Problem Chronic pain syndrome G89.4 Active 718654412 Problem Paranoid schizophrenia F20.0 Active 79814823 Problem Type 2 diabetes mellitus without complication, without long-term current use of insulin E11.9 Active 377290762 Problem History of lupus Z87.39 Active 536741471 Problem Schizoaffective disorder, depressive type F25.1 Active 30912107 Problem Primary insomnia F51.01 Active 5860571 Problem Gastroesophageal reflux disease without esophagitis K21.9 Active 852888539 Problem DM neuro manif type II E11.49 Active 98428951 Problem Depression with anxiety F41.8 Active 831707542 Problem Seasonal allergic rhinitis due to other allergic trigger J30.89 Active 226883395 Problem Menopausal syndrome (hot flashes) N95.1 Active 454838139 ALLERGIES No Information ENCOUNTERS Encounter Location Date Diagnosis [facility] [id number] [place] [address] 27425- 7297 Nov, [facility] [address] 27017- 9180 Jun, [facility] [id number] [place] [address] 33495 -3197 Jun, Shortness of breath at rest R06.02 ; COPD exacerbation J44.1 and BMI 45.0-49.9, adult Z68.42 [facility] [id number] [place] [address] 89192- 0448 Jun, [facility] [address] 72764- 6033 Jun, Paranoid schizophrenia F20.0 ; Depression with anxiety F41.8 and BMI 45.0-49.9, adult Z68.42 [facility] [id number] [place] [address] 14696- 0495 Jun, Schizoaffective disorder, depressive type F25.1 [facility] [address] [id number] Jun, Dental caries K02.9 [facility] [id number] [place] [address] 81466- 9469 Jun, Paranoid schizophrenia F20.0 [facility] [id number] [place] [address] 79162- 9893 May, Migraine without aura and without status migrainosus, not intractable G43.009 ; DM neuro manif type II E11.49 and Type 2 diabetes mellitus without complication, without long-term current use of insulin E11.9 [facility] [id number] [place] [address] 40073- 7841 May, Migraine without aura and without status migrainosus, not intractable G43.009 [facility] [id number] [place] [address] 14645- 6061 May, Depression with anxiety F41.8 [facility] [address] [id number] May, [facility] [id number] [place] [address] 28272- 9121 May, [facility] [id number] [place] [address] 00648- 1092 May, [place] [id number] [place] [address] 17768- 0624 May, Hypothyroidism (acquired) E03.9 [facility] [facility] [id number] [place] [address] 98225- 6436 May, Paranoid schizophrenia F20.0 [facility] [facility] [id number] [place] [address] 93162- 6627 May, Type 2 diabetes mellitus without complication, [...] N32.81 and Controlled substance agreement signed Z79.899 [place] [address] [place] [address] 04599- 7704 May, Controlled substance agreement signed Z79.899 [place] [id number] [place] [address] 74482- 4140 Apr, [facility] [address] [place] [address] [id number] Apr, Dental examination Z01.20 [place] [id number] [place] [address] 69543- 2214 Apr, Paranoid schizophrenia F20.0 [facility] [id number] [place] [address] 39701- 1589 Apr, Hypertension, unspecified type I10 [facility] [id number] [place] [address] 94923- 8072 Apr, Paranoid schizophrenia F20.0 [facility] [id number] [place] [address] 56038- 1891 Apr, [facility] [id number] [place] [address] 33113- 4587 Apr, Tobacco abuse Z72.0 [facility] [id number] [place] [address] 62423- 6473 Apr, [facility] [id number] [place] [address] 06614- 0085 Mar, [facility] [id number] [place] [address] 85371- 9954 Mar, Paranoid schizophrenia F20.0 and BMI 45.0-49.9, adult Z68.42 [facility] [id number] [place] [address] 44630- 7433 Mar, Schizoaffective disorder, depressive type F25.1 [facility] [id number] [place] [address] 35018- 0587 Mar, [facility] [id number] [place] [address] 46386- 8123 Mar, Hypothyroidism, unspecified type E03.9 [facility] [id number] [place] [address] 87195- 3121 Mar, Schizoaffective disorder, depressive type F25.1 [facility] [address] [place] [address] 06870 -8916 Feb, Gastroenteritis K52.9 and BMI 45.0-49.9, adult Z68.42 [place] [id number] [place] [address] 72092- 1034 Feb, [place] [address] 17356- 6554 Feb, [place] [id number] [place] [address] 63469- 7564 Feb, [address] 38783- 4470 Feb, [address] 40363- 3828 Feb, Paranoid schizophrenia F20.[address] 91065- 9375 Feb, Gastroesophageal reflux disease without esophagitis K21.9 ; Other seasonal allergic rhinitis J30.2 ; Other allergic rhinitis J30.89 ; Tobacco abuse Z72.0 and BMI 40.0-44.9, adult Z68.41 [id number] [place] [address] 28652- 4613 Feb, Onychomycosis B35.1 ; Callus of foot L84 and DM neuro manif type II E11.49 [address] [id number] [place] [address] 35292- 1401 Jan, Chronic allergic rhinitis J30.9 [address] [id number] [place] [address] 83421- 7051 Jan, [address] 51910- 4179 Jan, Schizoaffective disorder, depressive type F25.[address] 38650- 8330 Jan, [facility] [address] [place] [id number] [place] [address] 28128 -6266 07 Jan, 2017 Sore throat J02.9 and Seasonal allergic rhinitis due to other allergic trigger J30.89 [facility] [address] [place] [address] 87686- 6915 04 Jan, 2017 [facility] [id number] [place] [address] 72758- 4913 Jan, [facility] [id number] [place] [address] 16650 -0736 Jan, Chronic allergic rhinitis J30.9 [facility] [id number] [place] [address] 32249- 8832 Dec, Paranoid schizophrenia F20.0 ; Primary insomnia F51.01 and Schizoaffective disorder, depressive type F25.1 [place] [id number] [place] [address] 94172- 6605 21 Dec, 2016 Chronic pain syndrome G89.4 ; Cervicalgia of occipito- atlanto-axial region M54.2 ; Menopausal syndrome (hot flashes) N95.1 and Encounter for immunization Z23 [facility] [id number] [place] [address] 24657- 6525 14 Dec, 2016 [place] [id number] [place] [address] 60492- 7360 13 Dec, 2016 [place] [id number] [place] [address] 18719- 5790 08 Dec, 2016 Paranoid schizophrenia F20.0 [facility] [id number] [place] [address] 90038- 2712 Dec, Schizoaffective disorder, depressive type F25.1 [facility] [id number] [place] [address] 20466- 7096 Nov, Hypothyroidism, unspecified type E03.9 [facility] [id number] [place] [address] 49493 -2150 Nov, Acute seasonal allergic rhinitis due to other allergen J30.89 [facility] [id number] [place] [address] 93909- 1611 Nov, [place] [address] [place] [address] 92588- 8991 Nov, Hypothyroidism, unspecified type E03.9 and Other elevated white blood cell (WBC) count D72.828 [place] [id number] [place] [address] 53567- 2335 Nov, Schizoaffective disorder, depressive type F25.1 [place] [id number] [place] [address] 87610- 2578 Nov, Paranoid schizophrenia F20.0 [place] [id number] [place] [address] 59695- 2995 Nov, Type 2 diabetes mellitus without complication, without long- term current use of insulin E11.9 ; Morbid obesity due to excess calories E66.01 and Chronic pain syndrome G89.4 [place] [id number] [place] [address] 77549- 2039 Oct, Paranoid schizophrenia F20.0 [place] [id number] [place] [address] 14602- 8404 Oct, [place] [id number] [place] [address] 58437- 7863 Oct, Schizoaffective disorder, depressive type F25.1 [place] [id number] [place] [address] 63393- 9830 Oct, Hypothyroidism, unspecified type E03.9 and Other elevated white blood cell (WBC) count D72.828 [place] [address] [place] [address] 71382- 2823 Oct, Morbid obesity due to excess calories E66.01 ; Chronic obstructive pulmonary disease, unspecified COPD type J44.9 ; History of lupus Z87.39 ; Hypothyroidism, unspecified type E03.9 ; Gastroesophageal reflux disease without esophagitis K21.9 ; Primary insomnia F51.01 and Chronic pain syndrome G89.4 [place] [id number] [place] [address] 04650- 3527 Sep, [facility] [address] [address]- 1631 Sep, [facility] [id number] [place] [address] 47518- 2602 Sep, [facility] [id number] [place] [address] 28039- 7550 Sep, Paranoid schizophrenia F20.0 [facility] [id number] [place] [address] 38103- 3350 Sep, [facility] [id number] [place] [address] 88654- 1957 Sep, Paranoid schizophrenia F20.0 [facility] [id number] [place] [address] 49931- 5793 Sep, [facility] [id number] [place] [address] 07201- 5069 August, Paranoid schizophrenia F20.0 [facility] [address] [place] [address] 42322- 9483 Jul, [facility] [id number] [place] [address] 97780- 1448 Jul, Type 2 diabetes mellitus without complication, without long- term current use of insulin E11.9 ; Morbid obesity due to excess calories E66.01 ; Depression with anxiety F41.8 ; Hypothyroidism, unspecified type E03.9 ; Seasonal allergic rhinitis due to other allergic trigger J30.89 ; Pain, dental K08.89 and Gastroesophageal reflux disease without esophagitis K21.9 [facility] [address] [place] [address] [id number] Jul, Dental examination Z01.20 [facility] [id number] [place] [address] 74798- 4065 07 Jul, 2016 Paranoid schizophrenia F20.0 [facility] [id number] [place] [address] 72224- 0904 13 Jun, 2016 Paranoid schizophrenia F20.0 and Depression with anxiety F41.8 [place] [id number] [place] [address] 00944- 2400 10 Jun, 2016 Paranoid schizophrenia F20.0 and Depression with anxiety F41.8 [place] [id number] [place] [address] 60789- 2588 09 Jun, 2016 [place] [address] 06367- 0499 Jun, [facility] [id number] [place] [address] 83093 -2167 Jun, Seasonal allergic rhinitis due to other allergic trigger J30.89 [facility] [place] [id number] [place] [address] 44542 -3079 May, Sore throat J02.9 ; Other viral agents as the cause of diseases classified elsewhere B97.89 and Acute upper respiratory infection, unspecified J06.9 [place] [id number] [place] [address] 08961- 9440 May, Paranoid schizophrenia F20.0 and Depression with anxiety F41.8 [place] [id number] [place] [address] 28399- 2375 Apr, Other seasonal allergic rhinitis J30.2 [place] [id number] [place] [address] 89953- 3056 Apr, Paranoid schizophrenia F20.0 and Depression with anxiety F41.8 [facility] [place] [id number] [place] [address] 72378 -7632 Apr, Bronchitis J40 and Sore throat J02.9 [place] [id number] [place] [address] 44608- 9829 Apr, Type 2 diabetes mellitus without complication, without long- term current use of insulin E11.9 [facility] [place] [id number] [place] [address] 51428 -9655 Apr, Bronchitis J40 [place] [id number] [place] [address] 67910- 6811 Apr, [place] [id number] [place] [address] 95815- 4208 Apr, [place] [id number] [place] [address] 44412- 3074 Mar, Type 2 diabetes mellitus without complication, [...] R60.9 and Other seasonal allergic rhinitis J30.2 [place] [address] 64749- 4200 Mar, Paranoid schizophrenia F20.0 and Depression with anxiety F41.8 [place] [id number] [place] [address] 40189- 6919 Feb, [place] [id number] [place] [address] 30223- 4760 Feb, [place] [id number] [place] [address] 93075- 3452 Feb, [place] [id number] [place] [address] 66594- 2785 Feb, [place] [id number] [place] [address] 92294- 0649 Feb, Type 2 diabetes mellitus without complication, without long- term current use of insulin E11.9 ; ARIAS on CPAP G47.33 and Preoperative evaluation to rule out surgical contraindication Z01.818 [place] [id number] [place] [address] 42059- 4063 Feb, Paranoid schizophrenia F20.0 and Depression with anxiety F41.8 [facility] [address] [facility] [id number] [place] [address]- 5839 Jan, [facility] [address] [facility] [id number] [place] [address], [place] [address]- 3669 Jan, Paranoid schizophrenia F20.0 and Depression with anxiety F41.8 [facility] [address] [id number] [place] [address], [place] [address]- 7558 Jan, [facility] [address] [facility] [id number] [place] [address], [place] [address]- 3020 Jan, Muscle strain T14.8 [facility] [address] [facility] [id number] [place] [address], [place] [address]- 6230 Jan, Paranoid schizophrenia F20.0 [facility] [id number] [place] [address], [place] [address]- 2074 Jan, [facility] [id number] [place] [address] 43796- 6812 Jan, Paranoid schizophrenia F20.0 and Depression with anxiety F41.8 [facility] [address] [facility] [id number] [place] [address], [place] [address]- 3878 Jan, [facility] [id number] [address]- 5076 Jan, [facility] [id number] [place] [address] 59433- 9569 28 Dec, 2015 [facility] [address] [facility] [id number] [address]- 1205 23 Dec, 2015 Paranoid schizophrenia F20.0 [facility] [address] [facility] [id number] [place] [address]- 9185 16 Dec, 2015 Paranoid schizophrenia F20.0 and Depression with anxiety F41.8 [facility] [address] [facility] [id number] [place] [address]- 4322 Nov, [place] [place] [id number] [place] [address] 08347- 2887 Nov, Paranoid schizophrenia F20.0 [place] [id number] [place] [address] 56462- 1500 Nov, Paranoid schizophrenia F20.0 and Depression with anxiety F41.8 [place] [id number] [place] [address] 57821- 6859 Nov, Type 2 diabetes mellitus without complication, without long- term current use of insulin E11.9 ; Paranoid schizophrenia F20.0 ; Chronic obstructive pulmonary disease, unspecified COPD type J44.9 ; Morbid obesity due to excess calories E66.01 and Parkinsonian tremor G20 [place] [id number] [place] [address] 90564- 6569 Nov, [place] [id number] [place] [address] 11602- 8148 Oct, Paranoid schizophrenia F20.0 [place] [id number] [place] [address] 45843- 8462 Oct, Paranoid schizophrenia F20.0 [place] [id number] [place] [address] 32341- 0545 Oct, Paranoid schizophrenia F20.0 and Depression with anxiety F41.8 [place] [id number] [place] [address] 26820- 0793 Oct, [place] [id number] [place] [address] 90215- 5983 Oct, Paranoid schizophrenia F20.0 and Depression with anxiety F41.8 [place] [id number] [place] [address] 26830- 3417 Oct, Nasal sore J34.89 [place] [address] [place] [address] 05599- 6178 Oct, Type 2 diabetes mellitus without complication, without long- term current use of insulin E11.9 ; Depression with anxiety F41.8 ; Hypothyroidism, unspecified type E03.9 and History of lupus Z87.39 [facility] [id number] [place] [address] 09817- 5801 Oct, [facility] [id number] [place] [address] 09694- 0326 Oct, Type 2 diabetes mellitus without complication, [...] edema R60.9 and History of lupus Z87.39 [facility] [id number] [place] [address] 30487- 7803 Feb, [facility] [id number] [place] [address] 77159- 4695 Jan, [facility] [id number] [place] [address] 76144- 9857 Jan, [facility] [id number] [place] [address] 15934- 2166 Jan, [facility] [id number] [place] [address] 05447- 0736 Dec, [facility] [id number] [place] [address] 18959- 6483 Nov, [facility] [id number] [place] [address] 99976- 8106 Nov, [facility] [id number] [place] [address] 51176- 2546 Oct, [facility] [id number] [place] [address] 37641- 0634 Oct, [facility] [address] [facility] [id number] [place] [address]- 7488 Oct, [facility] [address] [facility] [id number] [place] [address]- 7139 Sep, Allergic rhinitis 477.9 [facility] [address] [facility] [id number] [place] [address]- 6508 Sep, Rhinitis, allergic 477.9 [facility] [address] [facility] [id number] [place] [address]- 3887 Sep, Rhinitis, allergic 477.9 [facility] [address] [facility] [id number] [place] [address]- 2238 Sep, [facility] [address] [facility] [id number] [place] [address]- 2405 August, [facility] [address] [facility] [id number] [place] [address]- 0595 August, [facility] [address] [facility] [id number] [place] [address]- 0272 August, [facility] [address] [facility] [id number] [place] [address]- 3564 28 Jul, 2014 [facility] [address] [facility] [id number] [place] [address]- 9154 14 Jul, 2014 [facility] [address] [facility] [id number] [place] [address]- 9082 13 Jul, 2014 [facility] [address] [id number] [place] [address]- 0881 16 Jun, 2014 [facility] [place] [facility] [address] [facility] [id number] [place]- 8891 16 Jun, 2014 [facility] [place] [facility] [address] [facility] [id number] [place] 8653 Jun, [facility] [place] [facility] [address] [facility] [id number] [place] [address] [address] Jun, [facility] [place] [facility] [address] [id number] [place] [address] Jun, [facility] [place] [facility] [address] [id number] [place] [address] Jun, [facility] [place] [facility] [address] [id number] [place] [address] Jun, [facility] [place] [facility] [address] [id number] [place] [address] Jun, [facility] [place] [facility] [address] [id number] [place] [address] May, [facility] [place] [facility] [address] [id number] [place] [address] May, [facility] [place] [facility] [address] [id number] [place] [address] May, [facility] [place] [facility] [address] [id number] [place] [address] May, [facility] [place] [facility] [address] [id number] [place] [address] Apr, [facility] [place] [facility] [address] [id number] [place] [address] Mar, [facility] [place] [facility] [address] [id number] [place] [address] Mar, [facility] [place] [facility] [address] [id number] [place] [address] Mar, [facility] [place] [facility] [address] [id number] [place] [address] Mar, [facility] [place] [facility] [address] [id number] [place] [address] Mar, [facility] [place] [facility] [address] [id number] [place] Mar, [facility] [place] [facility] [address] [id number] [place] [address] 05 Mar, 2014 [facility] [place] [facility] [address] [id number] [place] [address] Mar, [facility] [place] [facility] [address] [id number] [place] [address] Mar, [facility] [place] [facility] [address] [id number] [place] [address] Feb, [facility] [place] [facility] [address] [id number] [place] [address] Feb, [facility] [place] [facility] [address] [id number] [place] [address] Feb, [facility] [place] [facility] [address] [id number] [place] [address] Feb, [facility] [place] [facility] [address] [id number] [place] [address]990 Feb, [facility] [place] [facility] [address] [id number] [place] [address] 98[address] Feb, [facility] [place] [facility] [address] [id number] [place] [address] 125[address] Feb, [facility] [place] [facility] [address] [id number] [place] [address] 2011 Feb, [facility] [place] [facility] [address] [id number] [place] [address] Jan, [facility] [place] [facility] [address] [id number] [place] [address] 23 Jan, 2014 [facility] [place] [facility] [address] [id number] [place] [address] 16 Jan, 2014 [facility] [place] [facility] [address] [id number] [place] [address] 7253 16 Jan, 2014 [facility] [place] [facility] [address] [id number] [place] [address] 3440 15 Jan, 2014 [facility] [place] [facility] [address] [id number] [place] [address] 9779 15 Jan, 2014 [facility] [place] [facility] [address] [id number] [place] [address] 5677 14 Jan, 2014 [facility] [place] [facility] [address] [id number] [place] [address] 14 Jan, 2014 [facility] [place] [facility] [address] [id number] [place] [address]111 14 Jan, 2014 [facility] [place] [facility] [address] [id number] [place] [address] 64[address] 14 Jan, 2014 [facility] [place] [facility] [address] [id number] [place] [address] 18 Dec, 2013 [facility] [place] [facility] [address] [id number] [place] [address]78 18 Dec, 2013 [facility] [place] [facility] [address] [id number] [place] [address] 2790 10 Dec, 2013 [facility] [place] [facility] [address] [id number] [place] [address]- 6297 10 Dec, 2013 [facility] [place] [facility] [address] [id number] [place] [address] 5740 Nov, [facility] [place] [facility] [address] [id number] [place] [address]- 3566 Nov, [facility] [place] [facility] [address] [id number] [place] [address]- [address]207 Nov, [facility] [place] [facility] [address] [id number] [place] [address]- 4688 Nov, [facility] [place] [facility] [address] [id number] [place] [address]- 1557 Nov, [facility] [place] [facility] [address] [id number] [place] [address]- 7326 Oct, [facility] [place] [facility] [address] [id number] [place] [address] 4188 Oct, [facility] [place] [facility] [address] [id number] [place] [address] 1727 Oct, [facility] [place] [facility] [address] [id number] [place] [address] Oct, [facility] [place] [facility] [address] [id number] [place] [address] Sep, [facility] [place] [facility] [address] [id number] [place] [address] Sep, [facility] [place] [facility] [address] [id number] [place] [address]- 5447 Sep, [facility] [place] [facility] [address] [id number] [place] [address]- 6298 Sep, [facility] [place] [facility] [address] [id number] [place] [address]- 9239 Sep, [facility] [place] [facility] [address] [id number] [place] [address]- 6739 Sep, [facility] [place] [facility] [address] [id number] [place] [address]- 3129 Sep, [facility] [place] [facility] [address] [id number] [place] [address]- 0081 Sep, [facility] [place] [facility] [address] [id number] [place] [address]99 August, [facility] [place] [facility] [address] [id number] [place] [address] 6152 August, [facility] [place] [facility] [address] [id number] [place] [address] 09[address] August, [facility] [place] [facility] [address] [id number] [place] [address] 4059 August, [facility] [place] [facility] [address] [id number] [place] [address] 2198 August, [facility] [place] [facility] [address] [id number] [place] [address] 2914 August, [facility] [place] [facility] [address] [id number] [place] [address]30 August, [facility] [place] [facility] [address] [id number] [place] [address] 77[address] Jul, [facility] [place] [facility] [address] [id number] [place] [address]26 Jul, [facility] [place] [facility] [address] [id number] [place] [address] 4899 Jul, [facility] [place] [facility] [address] [id number] [place] [address]01 Jul, [facility] [place] [facility] [address] [id number] [place] [address] 1772 Jul, [facility] [place] [facility] [address] [id number] [place] [address]- 2199 Jul, [facility] [place] [facility] [address] [id number] [place] [address]- 3097 Jul, [facility] [place] [facility] [address] [id number] [place] [address] 2446 Jul, [facility] [place] [facility] [address] [id number] [place] [address]- 7922 Jul, [facility] [place] [facility] [address] [id number] [place] [address]- 5814 Jul, [facility] [place] [facility] [address] [id number] [place] [address]- 5930 Jul, [facility] [place] [facility] [address] [id number] [place] [address] 7470 Jul, [facility] [place] [facility] [address] [id number] [place] [address] 9218 Jun, [facility] [place] [facility] [address] [id number] [place] [address]- 3784 Jun, [facility] [place] [facility] [address] [id number] [place] [address]- 8324 Jun, [facility] [place] [facility] [address] [id number] [place] [address]- 2005 Jun, [facility] [place] [facility] [address] [id number] [place] [address]- 1311 Jun, [facility] [place] [facility] [address] [id number] [place] [address]- 8979 May, [facility] [place] [facility] [address] [id number] [place] [address] 1038 May, [facility] [place] [facility] [address] [id number] [place] [address]- 6617 May, [facility] [place] [facility] [address] [id number] [place] [address]- 6915 May, [facility] [place] [facility] [address] [id number] [place] [address]- 3540 May, [facility] [place] [facility] [address] [id number] [place] [address]- 7541 May, [facility] [place] [facility] [address] [id number] [place] [address]- 2031 May, [facility] [place] [facility] [address] [id number] [place] [address]- 8691 May, [facility] [place] [facility] [address] [id number] [place] [address]- 0310 Mar, [facility] [place] [facility] [address] [id number] [place] [address]- 2221 Mar, [facility] [place] [facility] [address] [id number] [place] [address] Mar, [facility] [place] [facility] [address] [facility] [id number] [place] [address] Mar, [facility] [place] [facility] [address] [id number] [place] [address]- 3003 Mar, [facility] [place] [facility] [address] [id number] [place] [address]- 7516 Mar, [facility] [place] [facility] [address] [id number] [place] [address]- 8441 Feb, [facility] [place] [facility] [address] [id number] [place] [address]- 4853 Feb, [facility] [place] [facility] [address] [id number] [place] [address]- 7701 Jan, [facility] [place] [facility] [address] [id number] [place] [address]- 0749 Jan, [facility] [place] [facility] [address] [id number] [place] [address]- 4847 Jan, [facility] [place] [facility] [address] [id number] [place] [address]- 6696 Jan, [facility] [place] [facility] [address] [id number] [place] [address]- 1309 Jan, [facility] [place] [facility] [address] [id number] [place] [address]- 0128 Jan, [facility] [place] [facility] [address] [id number] [place] [address]- 4027 Jan, [facility] [place] [facility] [address] [id number] [place] [address]- 6726 Jan, [facility] [place] [facility] [address] [id number] [place] [address]- 1952 Jan, [facility] [place] [facility] [address] [id number] [place] [address]- 0754 Jan, [facility] [place] [facility] [address] [id number] [place] [address]- 2546 16 Dec, 2012 [facility] [place] [facility] [address] [id number] [place] [address]- 2417 Nov, [facility] [address] [id number] [place] [address]- 7872 Nov, [facility] [address] [id number] [place] [address]- 6144 Nov, [facility] [address] [id number] [place] [address] Oct, [facility] [address] [id number] [place] [address]- 2116 Oct, [facility] [address] [id number] [place] [address]- 0779 August, [facility] [address] [id number] [place] [address]- 2500 Apr, [facility] [address] [facility] [id number] [place] [address]- 5032 Apr, [facility] [address] [facility] [id number] [address]- 3140 Feb, [facility] [address] [id number] [address]- 6210 Feb, [facility] [address] [facility] [id number] [place] [address]- 3728 Dec, [facility] [address] [facility] [id number] [place] [address]- 9999 Dec, [facility] [address] [id number] [address]- 3957 Oct, [facility] [address] [facility] [id number] [place] [address]- 7003 Oct, [facility] [address] [facility] [id number] [place] [address]- 5802 Oct, [facility] [address] [facility] [id number] [address]- 3816 Jul, IMMUNIZATIONS No Known Immunizations SOCIAL HISTORY [...] for psychosis/mental illness , last one in [place] at [facility] 4 years ago
--- OUTSIDE RECORDS SUMMARY | 2018-09-02 13:57 | XMS REPORT ---
Author Author EDWINUMESH CASIANO [facility] Address [address] [place] [address] Care Team Providers Care Loadmaster Name Role Phone UMESH PINEDA Unavailable PROBLEMS Type Condition ICD9-CM Code NJZ58-NM Code Onset Dates Condition Status SNOMED Code Problem Other allergic rhinitis J30.89 Active 783830935 Problem Tobacco abuse Z72.0 Active 790164154 Problem Other seasonal allergic rhinitis J30.2 Active 913913156 Problem COPD exacerbation J44.1 Active 813388613 Problem OAB (overactive bladder) N32.81 Active 411222981 Problem Hypothyroidism (acquired) E03.9 Active 751079663 Problem Morbid obesity due to excess calories E66.01 Active 853166074 Problem Chronic obstructive pulmonary disease, unspecified COPD type J44.9 Active 48153463 Problem Migraine without aura and without status migrainosus, not intractable G43.009 Active 328377139 Problem Gastroesophageal reflux disease, esophagitis presence not specified K21.9 Active 786355379 Problem Essential hypertension I10 Active 75803152 Problem Dyslipidemia E78.5 Active 071027514 Problem Chronic pain syndrome G89.4 Active 924308343 Problem Paranoid schizophrenia F20.0 Active 06369467 Problem Type 2 diabetes mellitus without complication, without long-term current use of insulin E11.9 Active 373923723 Problem History of lupus Z87.39 Active 571794988 Problem Schizoaffective disorder, depressive type F25.1 Active 54699348 Problem Primary insomnia F51.01 Active 9542572 Problem Gastroesophageal reflux disease without esophagitis K21.9 Active 763085246 Problem DM neuro manif type II E11.49 Active 41624920 Problem Depression with anxiety F41.8 Active 032526059 Problem Seasonal allergic rhinitis due to other allergic trigger J30.89 Active 544466484 Problem Menopausal syndrome (hot flashes) N95.1 Active 753046580 ALLERGIES No Information ENCOUNTERS Encounter Location Date Diagnosis [facility] [id number] [place] [address] 34362- 5605 Nov, [facility] [address] 56241- 1271 Jun, [facility] [id number] [place] [address] 47526 -5007 Jun, Shortness of breath at rest R06.02 ; COPD exacerbation J44.1 and BMI 45.0-49.9, adult Z68.42 [facility] [id number] [place] [address] 30976- 8702 Jun, [facility] [address] 15841- 2887 Jun, Paranoid schizophrenia F20.0 ; Depression with anxiety F41.8 and BMI 45.0-49.9, adult Z68.42 [facility] [id number] [place] [address] 89728- 2763 Jun, Schizoaffective disorder, depressive type F25.1 [facility] [address] [id number] Jun, Dental caries K02.9 [facility] [id number] [place] [address] 75323- 1998 Jun, Paranoid schizophrenia F20.0 [facility] [id number] [place] [address] 38692- 8724 May, Migraine without aura and without status migrainosus, not intractable G43.009 ; DM neuro manif type II E11.49 and Type 2 diabetes mellitus without complication, without long-term current use of insulin E11.9 [facility] [id number] [place] [address] 53764- 0718 May, Migraine without aura and without status migrainosus, not intractable G43.009 [facility] [id number] [place] [address] 97587- 1597 May, Depression with anxiety F41.8 [facility] [address] [id number] May, [facility] [id number] [place] [address] 66131- 1710 May, [facility] [id number] [place] [address] 85721- 5086 May, [place] [id number] [place] [address] 70424- 4994 May, Hypothyroidism (acquired) E03.9 [facility] [id number] [place] [address] 18288- 2519 May, Paranoid schizophrenia F20.0 [facility] [id number] [place] [address] 94617- 5314 May, Type 2 diabetes mellitus without complication, [...] N32.81 and Controlled substance agreement signed Z79.899 [place] [address] [place] [address] 60536- 5590 May, Controlled substance agreement signed Z79.899 [facility] [id number] [place] [address] 66572- 5873 Apr, [facility] [address] [place] [address] [id number] Apr, Dental examination Z01.20 [place] [id number] [place] [address] 07442- 5360 Apr, Paranoid schizophrenia F20.0 [facility] [id number] [place] [address] 61995- 8152 Apr, Hypertension, unspecified type I10 [facility] [id number] [place] [address] 43662- 0313 Apr, Paranoid schizophrenia F20.0 [facility] [id number] [place] [address] 17122- 9621 Apr, [facility] [id number] [place] [address] 80933- 0941 Apr, Tobacco abuse Z72.0 [facility] [id number] [place] [address] 16719- 4256 Apr, [facility] [id number] [place] [address] 39649- 9494 Mar, [facility] [id number] [place] [address] 74719- 6419 Mar, Paranoid schizophrenia F20.0 and BMI 45.0-49.9, adult Z68.42 [facility] [id number] [place] [address] 65200- 3820 Mar, Schizoaffective disorder, depressive type F25.1 [facility] [id number] [place] [address] 96096- 0582 Mar, [facility] [id number] [place] [address] 57187- 8704 Mar, Hypothyroidism, unspecified type E03.9 [facility] [id number] [place] [address] 03476- 0815 Mar, Schizoaffective disorder, depressive type F25.1 [facility] [address] [place] [address] 88487 -1766 Feb, Gastroenteritis K52.9 and BMI 45.0-49.9, adult Z68.42 [place] [id number] [place] [address] 18885- 6385 Feb, [place] [address] 91106- 2157 Feb, [place] [id number] [place] [address] 19231- 1218 Feb, [address] 25048- 6832 Feb, [address] 26396- 8632 Feb, Paranoid schizophrenia F20.[address] 32832- 1562 Feb, Gastroesophageal reflux disease without esophagitis K21.9 ; Other seasonal allergic rhinitis J30.2 ; Other allergic rhinitis J30.89 ; Tobacco abuse Z72.0 and BMI 40.0-44.9, adult Z68.41 [id number] [place] [address] 91384- 2940 Feb, Onychomycosis B35.1 ; Callus of foot L84 and DM neuro manif type II E11.49 [place] [id number] [place] [address] 70794- 3874 Jan, Chronic allergic rhinitis J30.9 [place] [id number] [place] [address] 29460- 4757 Jan, [address] 71832- 0614 Jan, Schizoaffective disorder, depressive type F25.[address] 80306- 1561 Jan, [facility] [address] [place] [id number] [place] [address] 68497 -8317 07 Jan, 2017 Sore throat J02.9 and Seasonal allergic rhinitis due to other allergic trigger J30.89 [facility] [address] [place] [address] 59917- 6492 04 Jan, 2017 [facility] [id number] [place] [address] 90831- 1601 Jan, [facility] [id number] [place] [address] 35537 -3295 Jan, Chronic allergic rhinitis J30.9 [facility] [id number] [place] [address] 23912- 7512 Dec, Paranoid schizophrenia F20.0 ; Primary insomnia F51.01 and Schizoaffective disorder, depressive type F25.1 [place] [id number] [place] [address] 94521- 1198 21 Dec, 2016 Chronic pain syndrome G89.4 ; Cervicalgia of occipito- atlanto-axial region M54.2 ; Menopausal syndrome (hot flashes) N95.1 and Encounter for immunization Z23 [facility] [id number] [place] [address] 64411- 4433 14 Dec, 2016 [place] [id number] [place] [address] 06015- 0947 13 Dec, 2016 [place] [id number] [place] [address] 67311- 4090 08 Dec, 2016 Paranoid schizophrenia F20.0 [facility] [id number] [place] [address] 20064- 1783 Dec, Schizoaffective disorder, depressive type F25.1 [facility] [id number] [place] [address] 97753- 7844 Nov, Hypothyroidism, unspecified type E03.9 [facility] [id number] [place] [address] 99329 -1344 Nov, Acute seasonal allergic rhinitis due to other allergen J30.89 [facility] [id number] [place] [address] 90492- 9615 Nov, [place] [address] [place] [address] 79983- 9507 Nov, Hypothyroidism, unspecified type E03.9 and Other elevated white blood cell (WBC) count D72.828 [place] [id number] [place] [address] 11587- 6513 Nov, Schizoaffective disorder, depressive type F25.1 [place] [id number] [place] [address] 67601- 7115 Nov, Paranoid schizophrenia F20.0 [place] [id number] [place] [address] 94585- 3166 Nov, Type 2 diabetes mellitus without complication, without long- term current use of insulin E11.9 ; Morbid obesity due to excess calories E66.01 and Chronic pain syndrome G89.4 [place] [id number] [place] [address] 44817- 2695 Oct, Paranoid schizophrenia F20.0 [place] [id number] [place] [address] 43479- 4119 Oct, [place] [id number] [place] [address] 20236- 4528 Oct, Schizoaffective disorder, depressive type F25.1 [place] [id number] [place] [address] 25729- 2752 Oct, Hypothyroidism, unspecified type E03.9 and Other elevated white blood cell (WBC) count D72.828 [place] [address] [place] [address] 74454- 1951 Oct, Morbid obesity due to excess calories E66.01 ; Chronic obstructive pulmonary disease, unspecified COPD type J44.9 ; History of lupus Z87.39 ; Hypothyroidism, unspecified type E03.9 ; Gastroesophageal reflux disease without esophagitis K21.9 ; Primary insomnia F51.01 and Chronic pain syndrome G89.4 [place] [id number] [place] [address] 75998- 4007 Sep, [facility] [address], [place] [address]- 5518 Sep, [facility] [id number] [place] [address] 91850- 9744 Sep, [facility] [id number] [place] [address] 26342- 5901 Sep, Paranoid schizophrenia F20.0 [facility] [id number] [place] [address] 11436- 4661 Sep, [facility] [id number] [place] [address] 96706- 5524 Sep, Paranoid schizophrenia F20.0 [facility] [id number] [place] [address] 86601- 8946 Sep, [facility] [id number] [place] [address] 70078- 9397 August, Paranoid schizophrenia F20.0 [facility] [address] [place] [address] 19360- 2044 Jul, [facility] [id number] [place] [address] 67751- 9632 Jul, Type 2 diabetes mellitus without complication, without long- term current use of insulin E11.9 ; Morbid obesity due to excess calories E66.01 ; Depression with anxiety F41.8 ; Hypothyroidism, unspecified type E03.9 ; Seasonal allergic rhinitis due to other allergic trigger J30.89 ; Pain, dental K08.89 and Gastroesophageal reflux disease without esophagitis K21.9 [facility] [address] [place] [address] [id number] Jul, Dental examination Z01.20 [facility] [id number] [place] [address] 30263- 5055 07 Jul, 2016 Paranoid schizophrenia F20.0 [facility] [id number] [place] [address] 12565- 3014 13 Jun, 2016 Paranoid schizophrenia F20.0 and Depression with anxiety F41.8 [place] [id number] [place] [address] 67090- 4953 10 Jun, 2016 Paranoid schizophrenia F20.0 and Depression with anxiety F41.8 [place] [id number] [place] [address] 08467- 7590 09 Jun, 2016 [place] [address] 80545- 9330 Jun, [facility] [place] [id number] [place] [address] 79157 -3183 Jun, Seasonal allergic rhinitis due to other allergic trigger J30.89 [facility] [place] [id number] [place] [address] 24945 -6951 May, Sore throat J02.9 ; Other viral agents as the cause of diseases classified elsewhere B97.89 and Acute upper respiratory infection, unspecified J06.9 [place] [id number] [place] [address] 57374- 2171 May, Paranoid schizophrenia F20.0 and Depression with anxiety F41.8 [place] [id number] [place] [address] 55963- 4278 Apr, Other seasonal allergic rhinitis J30.2 [place] [id number] [place] [address] 16743- 0729 Apr, Paranoid schizophrenia F20.0 and Depression with anxiety F41.8 [facility] [place] [id number] [place] [address] 82033 -9280 Apr, Bronchitis J40 and Sore throat J02.9 [place] [id number] [place] [address] 21138- 9897 Apr, Type 2 diabetes mellitus without complication, without long- term current use of insulin E11.9 [facility] [place] [id number] [place] [address] 99290 -6451 Apr, Bronchitis J40 [place] [id number] [place] [address] 08812- 0046 Apr, [place] [id number] [place] [address] 36499- 4310 Apr, [place] [id number] [place] [address] 53037- 0969 Mar, Type 2 diabetes mellitus without complication, [...] R60.9 and Other seasonal allergic rhinitis J30.2 [place] [address] 49764- 5891 Mar, Paranoid schizophrenia F20.0 and Depression with anxiety F41.8 [place] [id number] [place] [address] 07889- 3307 Feb, [place] [id number] [place] [address] 14504- 4570 Feb, [place] [id number] [place] [address] 53700- 1364 Feb, [place] [id number] [place] [address] 57366- 5271 Feb, [place] [id number] [place] [address] 07190- 7448 Feb, Type 2 diabetes mellitus without complication, without long- term current use of insulin E11.9 ; ARIAS on CPAP G47.33 and Preoperative evaluation to rule out surgical contraindication Z01.818 [place] [id number] [place] [address] 27161- 0012 Feb, Paranoid schizophrenia F20.0 and Depression with anxiety F41.8 [facility] [address] [facility] [id number] [place] [address]- 4750 Jan, [facility] [address] [facility] [id number] [place] [address], [place] [id number]- 1178 Jan, Paranoid schizophrenia F20.0 and Depression with anxiety F41.8 [facility] [id number] [place] [address], [place] [address]- 6160 Jan, [facility] [address] [facility] [id number] [place] [address], [place] [address]- 6034 Jan, Muscle strain T14.8 [facility] [address] [facility] [id number] [place] [address], [place] [address]- 8702 Jan, Paranoid schizophrenia F20.0 [facility] [id number] [place] [address], [place] [address]- 0167 Jan, [facility] [id number] [place] [address] 74482- 3992 Jan, Paranoid schizophrenia F20.0 and Depression with anxiety F41.8 [facility] [address] [facility] [id number] [place] [address], [place] [address]- 7505 Jan, [facility] [id number], [place] [address]- 3383 Jan, [facility] [id number] [place] [address] 50039- 3823 28 Dec, 2015 [facility] [address] [facility] [id number] [address]- 2148 23 Dec, 2015 Paranoid schizophrenia F20.0 [facility] [address] [facility] [id number] [place] [address]- 1421 16 Dec, 2015 Paranoid schizophrenia F20.0 and Depression with anxiety F41.8 [facility] [address] [facility] [id number] [place] [address]- 7188 Nov, [facility] [place] [id number] [place] [address] 91772- 9081 Nov, Paranoid schizophrenia F20.0 [place] [id number] [place] [address] 72246- 0936 Nov, Paranoid schizophrenia F20.0 and Depression with anxiety F41.8 [place] [id number] [place] [address] 04576- 7831 Nov, Type 2 diabetes mellitus without complication, without long- term current use of insulin E11.9 ; Paranoid schizophrenia F20.0 ; Chronic obstructive pulmonary disease, unspecified COPD type J44.9 ; Morbid obesity due to excess calories E66.01 and Parkinsonian tremor G20 [place] [id number] [place] [address] 35809- 0200 Nov, [place] [id number] [place] [address] 99836- 4414 Oct, Paranoid schizophrenia F20.0 [place] [id number] [place] [address] 80327- 2709 Oct, Paranoid schizophrenia F20.0 [place] [id number] [place] [address] 56436- 5964 Oct, Paranoid schizophrenia F20.0 and Depression with anxiety F41.8 [place] [id number] [place] [address] 71085- 6840 Oct, [place] [id number] [place] [address] 40555- 0273 Oct, Paranoid schizophrenia F20.0 and Depression with anxiety F41.8 [place] [id number] [place] [address] 98637- 2193 Oct, Nasal sore J34.89 [place] [address] [place] [address] 61193- 0832 Oct, Type 2 diabetes mellitus without complication, without long- term current use of insulin E11.9 ; Depression with anxiety F41.8 ; Hypothyroidism, unspecified type E03.9 and History of lupus Z87.39 [facility] [id number] [place] [address] 28717- 9673 Oct, [facility] [id number] [place] [address] 24013- 5603 Oct, Type 2 diabetes mellitus without complication, [...] lupus Z87.39 [facility] [id number] [place] [address] 54666- 8195 Feb, [facility] [id number] [place] [address] 69218- 5132 Jan, [facility] [id number] [place] [address] 19419- 8803 Jan, [facility] [id number] [place] [address] 09058- 5446 Jan, [facility] [id number] [place] [address] 83311- 2036 Dec, [facility] [id number] [place] [address] 12893- 1824 Nov, [facility] [id number] [place] [address] 83951- 3236 Nov, [facility] [id number] [place] [address] 66739- 2546 Oct, [facility] [id number] [place] [address] 58245- 7561 Oct, [facility] [address] [facility] [id number] [place] [address] Oct, [facility] [address] [facility] [id number] [place] [address] Sep, Allergic rhinitis 477.9 [facility] [address] [facility] [id number] [place] [address] Sep, Rhinitis, allergic 477.9 [facility] [address] [facility] [id number] [place] [address] Sep, Rhinitis, allergic 477.9 [facility] [address] [facility] [id number] [place] [address] Sep, [facility] [address] [facility] [id number] [place] [address] August, [facility] [address] [facility] [id number] [place] [address] August, [facility] [address] [facility] [id number] [place] [address] August, [facility] [address] [facility] [id number] [place] [address]- [address] 28 Jul, 2014 [facility] [address] [facility] [id number] [place] [address] 14 Jul, 2014 [facility] [address] [facility] [id number] [place] [address] 13 Jul, 2014 [facility] [address] [id number] [place] [address] 16 Jun, 2014 [facility] [place] [facility] [address] [facility] [id number] [place] [address] [address], [address] [facility] [place] [facility] [address] [facility] [id number] [place] [address] Jun, [facility] [place] [facility] [address] [facility] [id number] [place] [address] Jun, [facility] [place] [facility] [address] [id number] [place] [address] Jun, [facility] [place] [facility] [address] [id number] [place] [address] 67[address] Jun, [facility] [place] [facility] [address] [id number] [place] [address] 267[address] Jun, [facility] [place] [facility] [address] [id number] [place] [address] Jun, [facility] [place] [facility] [address] [id number] [place] [address] 95[address] May, [facility] [place] [facility] [address] [id number] [place] [address] 73[address] May, [facility] [place] [facility] [address] [id number] [place] [address] 0384 May, [facility] [place] [facility] [address] [id number] [place] [address]- 9868 May, [facility] [place] [facility] [address] [id number] [place] [address]- 2464 Apr, [facility] [place] [facility] [address] [id number] [place] [address] 239[address] Mar, [facility] [place] [facility] [address] [id number] [place] [address] 6869 Mar, [facility] [place] [facility] [address] [id number] [place] [address]- 3410 Mar, [facility] [place] [facility] [address] [id number] [place] [address]- 5062 Mar, [facility] [place] [facility] [address] [id number] [place] [address]- 8489 Mar, [facility] [place] [facility] [address] [id number] [place] [address] Mar, [facility] [place] [facility] [address] [id number] [place] [address]- 4563 05 Mar, 2014 [facility] [place] [facility] [address] [id number] [place] [address]- 0335 Mar, [facility] [place] [facility] [address] [id number] [place] [address] Mar, [facility] [place] [facility] [address] [id number] [place] [address]013 Feb, [facility] [place] [facility] [address] [id number] [place] [address] 9402 Feb, [facility] [place] [facility] [address] [id number] [place] [address]- 5342 Feb, [facility] [place] [facility] [address] [id number] [place] [address]- 6603 Feb, [facility] [place] [facility] [address] [id number] [place] [address]- 0931 Feb, [facility] [place] [facility] [address] [id number] [place] [address]- 1694 Feb, [facility] [place] [facility] [address] [id number] [place] [address] 1941 Feb, [facility] [place] [facility] [address] [id number] [place] [address]- 9571 Feb, [facility] [place] [facility] [address] [id number] [place] [address]- 8930 Jan, [facility] [place] [facility] [address] [id number] [place] [address]- 2178 23 Jan, 2014 [facility] [place] [facility] [address] [id number] [place] [address]- 7108 16 Jan, 2014 [facility] [place] [facility] [address] [id number] [place] [address]- 3267 16 Jan, 2014 [facility] [place] [facility] [address] [id number] [place] [address]- 5707 15 Jan, 2014 [facility] [place] [facility] [address] [id number] [place] [address]- 1048 15 Jan, 2014 [facility] [place] [facility] [address] [id number] [place] [address]- 0852 14 Jan, 2014 [facility] [place] [facility] [address] [id number] [place] [address]- 0319 14 Jan, 2014 [facility] [place] [facility] [address] [id number] [place] [address]- 4498 14 Jan, 2014 [facility] [place] [facility] [address] [id number] [place] [address]- 4933 14 Jan, 2014 [facility] [place] [facility] [address] [id number] [place] [address]- 3036 18 Dec, 2013 [facility] [place] [facility] [address] [id number] [place] [address]- 5437 18 Dec, 2013 [facility] [place] [facility] [address] [id number] [place] [address]- 4919 10 Dec, 2013 [facility] [place] [facility] [address] [id number] [place] [address]- 8725 10 Dec, 2013 [facility] [place] [facility] [address] [id number] [place] [address]- 0930 Nov, [facility] [place] [facility] [address] [id number] [place] [address]- 6744 Nov, [facility] [place] [facility] [address] [id number] [place] [address]- 3973 Nov, [facility] [place] [facility] [address] [id number] [place] [address]- 8889 Nov, [facility] [place] [facility] [address] [id number] [place] [address]- 2708 Nov, [facility] [place] [facility] [address] [id number] [place] [address]- 0774 Oct, [facility] [place] [facility] [address] [id number] [place] [address]- 8072 Oct, [facility] [place] [facility] [address] [id number] [place] [address]- 7486 Oct, [facility] [place] [facility] [address] [id number] [place] [address] Oct, [facility] [place] [facility] [address] [id number] [place] [address]- 7585 Sep, [facility] [place] [facility] [address] [id number] [place] [address]- 0221 Sep, [facility] [place] [facility] [address] [id number] [place] [address]- 2088 Sep, [facility] [place] [facility] [address] [id number] [place] [address]- 2376 Sep, [facility] [place] [facility] [address] [id number] [place] [address]- 3088 Sep, [facility] [place] [facility] [address] [id number] [place] [address]- 5529 Sep, [facility] [place] [facility] [address] [id number] [place] [address]- 1987 Sep, [facility] [place] [facility] [address] [id number] [place] [address]- 3648 Sep, [facility] [place] [facility] [address] [id number] [place] [address] 1938 August, [facility] [place] [facility] [address] [id number] [place] [address]- 6854 August, [facility] [place] [facility] [address] [id number] [place] [address]- 9834 August, [facility] [place] [facility] [address] [id number] [place] [address]- 8914 August, [facility] [place] [facility] [address] [id number] [place] [address] 1925 August, [facility] [place] [facility] [address] [id number] [place] [address]- 0031 August, [facility] [place] [facility] [address] [id number] [place] [address]- 2465 August, [facility] [place] [facility] [address] [id number] [place] [address]- 0268 Jul, [facility] [place] [facility] [address] [id number] [place] [address]- 6986 Jul, [facility] [place] [facility] [address] [id number] [place] [address]- 4698 Jul, [facility] [place] [facility] [address] [id number] [place] [address]- 12[address] Jul, [facility] [place] [facility] [address] [id number] [place] [address]- 2126 Jul, [facility] [place] [facility] [address] [id number] [place] [address]- 8732 Jul, [facility] [place] [facility] [address] [id number] [place] [address]- 4369 Jul, [facility] [place] [facility] [address] [id number] [place] [address]- 0931 Jul, [facility] [place] [facility] [address] [id number] [place] [address]- 1759 Jul, [facility] [place] [facility] [address] [id number] [place] [address]- 3423 Jul, [facility] [place] [facility] [address] [id number] [place] [address]- 0675 Jul, [facility] [place] [facility] [address] [id number] [place] [address]- 5520 Jul, [facility] [place] [facility] [address] [id number] [place] [address]- 6049 Jun, [facility] [place] [facility] [address] [id number] [place] [address]- 5775 Jun, [facility] [place] [facility] [address] [id number] [place] [address]- 0838 Jun, [facility] [place] [facility] [address] [id number] [place] [address]- 4500 Jun, [facility] [place] [facility] [address] [id number] [place] [address]- 5065 Jun, [facility] [place] [facility] [address] [id number] [place] [address]- 6689 May, [facility] [place] [facility] [address] [id number] [place] [address]- 5510 May, [facility] [place] [facility] [address] [id number] [place] [address]- 4428 May, [facility] [place] [facility] [address] [id number] [place] [address]- 9899 May, [facility] [place] [facility] [address] [id number] [place] [address]- 1369 May, [facility] [place] [facility] [address] [id number] [place] [address]- 8450 May, [facility] [place] [facility] [address] [id number] [place] [address]- 5747 May, [facility] [place] [facility] [address] [id number] [place] [address]- 8443 May, [facility] [place] [facility] [address] [id number] [place] [address]- 6913 Mar, [facility] [place] [facility] [address] [id number] [place] [address]- 0123 Mar, [facility] [place] [facility] [address] [id number] [place] [address] Mar, [facility] [place] [facility] [address] [facility] [id number] [place] [address] Mar, [facility] [place] [facility] [address] [id number] [place] [address]- 4891 Mar, [facility] [place] [facility] [address] [id number] [place] [address]- 8621 Mar, [facility] [place] [facility] [address] [id number] [place] [address]- 7469 Feb, [facility] [place] [facility] [address] [id number] [place] [address]- 5873 Feb, [facility] [place] [facility] [address] [id number] [place] [address]- 2664 Jan, [facility] [place] [facility] [address] [id number] [place] [address]- 6261 Jan, [facility] [place] [facility] [address] [id number] [place] [address]- 4100 Jan, [facility] [place] [facility] [address] [id number] [place] [address]- 3592 Jan, [facility] [place] [facility] [address] [id number] [place] [address]- 6822 Jan, [facility] [place] [facility] [address] [id number] [place] [address]- 2472 Jan, [facility] [place] [facility] [address] [id number] [place] [address]- 8705 Jan, [facility] [place] [facility] [address] [id number] [place] [address]- 7148 Jan, [facility] [place] [facility] [address] [id number] [place] [address]- 0721 Jan, [facility] [place] [facility] [address] [id number] [place] [address]- 2717 Jan, [facility] [place] [facility] [address] [id number] [place] [address]- 2546 16 Dec, 2012 [facility] [place] [facility] [address] [id number] [place] [address]- 7516 Nov, [facility] [address] [id number] [place] [address]- 1067 Nov, [facility] [address] [id number] [place] [address]- 5787 Nov, [facility] [address] [id number] [place] [address] Oct, [facility] [address] [id number] [place] [address]- 7768 Oct, [facility] [address] [id number] [place] [address]- 5397 August, [facility] [address] [id number] [place] [address]- 0689 Apr, [facility] [address] [facility] [id number] [place] [address]- 3135 Apr, [facility] [address] [facility] [id number], [place] [address]- 8790 Feb, [facility] [address] [id number], [place] [address]- 4689 Feb, [facility] [address] [facility] [id number], [place] [address]- 5696 Dec, [facility] [address] [facility] [id number], [place] [address]- 8520 Dec, [facility] [address] [id number], [place] [address]- 8900 Oct, [facility] [address] [facility] [id number], [place] [address]- 4704 Oct, [facility] [address] [facility] [id number], [place] [address]- 5753 Oct, [facility] [address] [facility] [id number], [place] [address]- 1068 Jul, IMMUNIZATIONS No Known Immunizations SOCIAL HISTORY Never Assessed REASON FOR VISIT refill request PLAN OF CARE VITAL SIGNS [...] for psychosis/mental illness , last one in [place] at [facility] 4 years ago
--- OUTSIDE RECORDS SUMMARY | 2018-09-02 13:58 | XMS REPORT ---
Author Author STRICKLANDSOTO Carias Organization [facility] Address [address] [place] [address] Care Team Providers Care Buyer Planner Name Role Phone STRICKLANDSOTO Carias Unavailable PROBLEMS Type Condition ICD9-CM Code AWX88-QQ Code Onset Dates Condition Status SNOMED Code Problem Other seasonal allergic rhinitis J30.2 Active 668569467 Problem Gastroesophageal reflux disease, esophagitis presence not specified K21.9 Active 737277085 Problem Tobacco abuse Z72.0 Active 645157137 Problem Seasonal allergic rhinitis due to pollen J30.1 Active 89763621 Problem History of lupus Z87.39 Active 934754680 Problem COPD exacerbation J44.1 Active 028158223 Problem OAB (overactive bladder) N32.81 Active 989347363 Problem Morbid obesity due to excess calories E66.01 Active 874865426 Problem Dyslipidemia E78.5 Active 992141343 Problem Migraine without aura and without status migrainosus, not intractable G43.009 Active 597868335 Problem Hypothyroidism (acquired) E03.9 Active 251214739 Problem Essential hypertension I10 Active 92020307 Problem Type 2 diabetes mellitus without complication, without long-term current use of insulin E11.9 Active 526986332 Problem Gastroesophageal reflux disease without esophagitis K21.9 Active 136919813 Problem Chronic pain syndrome G89.4 Active 099982492 Problem Paranoid schizophrenia F20.0 Active 14756207 Problem Primary insomnia F51.01 Active 4237879 Problem DM neuro manif type II E11.49 Active 53978064 Problem Depression with anxiety F41.8 Active 064638433 Problem Seasonal allergic rhinitis due to other allergic trigger J30.89 Active 808841869 Problem Menopausal syndrome (hot flashes) N95.1 Active 297087760 Problem Chronic obstructive pulmonary disease, unspecified COPD type J44.9 Active 25293475 Problem Schizoaffective disorder, depressive type F25.1 Active 52800667 Problem Other allergic rhinitis J30.89 Active 575615812 ALLERGIES No Information ENCOUNTERS Encounter Location Date Diagnosis [facility] [id number] [place] [address] 58632- 8016 Nov, [facility] [address] 28953- 0709 Sep, [facility] [address] 67395- 6422 Jul, Schizoaffective disorder, depressive type F25.1 [facility] [address] 76386- 0055 Jul, [place] [address] 77483- 6592 13 Jul, 2017 Hypothyroidism (acquired) E03.9 [place] [address] 42517- 2412 11 Jul, 2017 Chronic obstructive pulmonary disease, unspecified COPD type J44.9 and Type 2 diabetes mellitus without complication, without long-term current use of insulin E11.9 [place] [id number] [place] [address] 48838- 2984 Jul, Paranoid schizophrenia F20.0 [place] [id number] [place] [address] 93673- 8493 Jun, Hypothyroidism (acquired) E03.9 and Seasonal allergic rhinitis due to pollen J30.1 [facility] [id number] [place] [address] 58135 -4411 Jun, Shortness of breath at rest R06.02 ; COPD exacerbation J44.1 and BMI 45.0-49.9, adult Z68.42 [facility] [address] 73130- 4824 Jun, [facility] [address] 83544- 7608 Jun, Paranoid schizophrenia F20.0 ; Depression with anxiety F41.8 and BMI 45.0-49.9, adult Z68.42 [facility] [id number] [place] [address] 37566- 7882 Jun, Schizoaffective disorder, depressive type F25.1 [facility] [id number] [place] [address] [id number] Jun, Dental caries K02.9 [facility] [id number] [place] [address] 33570- 2867 Jun, Paranoid schizophrenia F20.0 [facility] [id number] [place] [address] 01773- 4520 May, Migraine without aura and without status migrainosus, not intractable G43.009 ; DM neuro manif type II E11.49 and Type 2 diabetes mellitus without complication, without long-term current use of insulin E11.9 [facility] [id number] [place] [address] 43596- 0040 May, Migraine without aura and without status migrainosus, not intractable G43.009 [facility] [id number] [place] [address] 38702- 8046 May, Depression with anxiety F41.8 [facility] [id number] [place] [address] [id number] May, [facility] [id number] [place] [address] 65451- 6157 May, [facility] [id number] [place] [address] 64090- 3027 May, [facility] [id number] [place] [address] 83504- 3307 May, Hypothyroidism (acquired) E03.9 [facility] [id number] [place] [address] 58115- 2387 May, Paranoid schizophrenia F20.0 [facility] [id number] [place] [address] 38405- 4667 08 Feb, 2018 Type 2 diabetes mellitus without complication, [...] N32.81 and Controlled substance agreement signed Z79.899 [place] [address] 83350- 0227 May, Controlled substance agreement signed Z79.899 [place] [address] 96319- 9249 Apr, [facility] [address] [id number] Apr, Dental examination Z01.20 [place] [address] 53254- 8728 Apr, Paranoid schizophrenia F20.0 [place] [address] 39281- 4113 Apr, Hypertension, unspecified type I10 [place] [address] 55469- 3597 Apr, Paranoid schizophrenia F20.0 [place] [address] 90891- 1143 Apr, [place] [address] 46039- 7167 Apr, Tobacco abuse Z72.0 [facility] [address] 66011- 4369 Apr, [place] [address] [place] [address]- 1280 Mar, [facility] [address] 82735- 5240 27 Mar, 2017 Paranoid schizophrenia F20.0 and BMI 45.0-49.9, adult Z68.42 [facility] [address] 02605- 6982 15 Mar, 2017 Schizoaffective disorder, depressive type F25.1 [place] [address] 46685- 6299 Mar, [place] [address] 68586- 7334 Mar, Hypothyroidism, unspecified type E03.9 [place] [address] 36785- 5665 12 Mar, 2017 Schizoaffective disorder, depressive type F25.1 [facility] [address] 57791 -0438 Feb, Gastroenteritis K52.9 and BMI 45.0-49.9, adult Z68.42 [place] [address] 48658- 8049 22 Feb, 2017 [place] [id number] [place] [address] 93838- 7624 Feb, [place] [id number] [place] [address] 95424- 9335 Feb, [place] [address] 18970- 8277 16 Feb, 2017 [facility] [address] 16848- 6152 10 Feb, 2017 Paranoid schizophrenia F20.0 [facility] [id number] [place] [address] 00174- 2124 06 Feb, 2017 Gastroesophageal reflux disease without esophagitis K21.9 ; Other seasonal allergic rhinitis J30.2 ; Other allergic rhinitis J30.89 ; Tobacco abuse Z72.0 and BMI 40.0-44.9, adult Z68.41 [place] [address] 55954- 5669 Feb, Onychomycosis B35.1 ; Callus of foot L84 and DM neuro manif type II E11.49 [place] [address] 51907- 3887 Jan, Chronic allergic rhinitis J30.9 [place] [address] 51159- 0805 Jan, [place] [address] 59722- 5074 Jan, Schizoaffective disorder, depressive type F25.1 [place] [address] 95226- 4808 Jan, [facility] [address] 86866 -2247 Jan, Sore throat J02.9 and Seasonal allergic rhinitis due to other allergic trigger J30.89 [place] [address] 36144- 4967 Jan, [facility] [address] 77907- 8751 Jan, [facility] [address] 48324 -2214 Jan, Chronic allergic rhinitis J30.9 [facility] [address] 39286- 8499 27 Dec, 2016 Paranoid schizophrenia F20.0 ; Primary insomnia F51.01 and Schizoaffective disorder, depressive type F25.1 [facility] [address] 73722- 6735 Dec, Chronic pain syndrome G89.4 ; Cervicalgia of occipito- atlanto-axial region M54.2 ; Menopausal syndrome (hot flashes) N95.1 and Encounter for immunization Z23 [place] [address] 43023- 6553 14 Dec, 2016 [facility] [address] 80265- 6346 13 Dec, 2016 [place] [address] 93946- 6830 08 Dec, 2016 Paranoid schizophrenia F20.0 [place] [address] 05555- 4309 Dec, Schizoaffective disorder, depressive type F25.1 [place] [address] 78888- 9940 Nov, Hypothyroidism, unspecified type E03.9 [facility] [address] 93456 -1968 Nov, Acute seasonal allergic rhinitis due to other allergen J30.89 [place] [id number] [place] [address] 11032- 8232 Nov, [place] [id number] [place] [address] 22494- 1267 Nov, Hypothyroidism, unspecified type E03.9 and Other elevated white blood cell (WBC) count D72.828 [place] [id number] [place] [address] 31378- 2784 Nov, Schizoaffective disorder, depressive type F25.1 [place] [id number] [place] [address] 86074- 5257 Nov, Paranoid schizophrenia F20.0 [place] [id number] [place] [address] 99718- 5279 Nov, Type 2 diabetes mellitus without complication, without long- term current use of insulin E11.9 ; Morbid obesity due to excess calories E66.01 and Chronic pain syndrome G89.4 [place] [address] [address]- 5419 Oct, Paranoid schizophrenia F20.0 [place] [id number] [place] [address] 08561- 3352 Oct, [place] [id number] [place] [address] 22454- 7511 Oct, Schizoaffective disorder, depressive type F25.1 [place] [id number] [place] [address] 41257- 0518 Oct, Hypothyroidism, unspecified type E03.9 and Other elevated white blood cell (WBC) count D72.828 [place] [id number] [place] [address] 22222- 3115 Oct, Morbid obesity due to excess calories E66.01 ; Chronic obstructive pulmonary disease, unspecified COPD type J44.9 ; History of lupus Z87.39 ; Hypothyroidism, unspecified type E03.9 ; Gastroesophageal reflux disease without esophagitis K21.9 ; Primary insomnia F51.01 and Chronic pain syndrome G89.4 [place] [address] [place] [address] 27157- 5215 Sep, [place] [id number] [place] [address] 60353- 4401 Sep, [place] [address] [address]- 0202 Sep, [place] [id number] [place] [address] 26730- 3594 Sep, Paranoid schizophrenia F20.0 [place] [address] [place] [address] 08503- 5091 Sep, [place] [id number] [place] [address] 04768- 7179 Sep, Paranoid schizophrenia F20.0 [place] [address] [place] [address] 09163- 8344 Sep, [place] [address] [place] [address] 04508- 3581 August, Paranoid schizophrenia F20.0 [place] [id number] [place] [address] 75280- 8546 Jul, [place] [id number] [place] [address] 96663- 6109 Jul, Type 2 diabetes mellitus without complication, without long- term current use of insulin E11.9 ; Morbid obesity due to excess calories E66.01 ; Depression with anxiety F41.8 ; Hypothyroidism, unspecified type E03.9 ; Seasonal allergic rhinitis due to other allergic trigger J30.89 ; Pain, dental K08.89 and Gastroesophageal reflux disease without esophagitis K21.9 [facility] [id number] [place] [address] [id number] 12 Jul, 2016 Dental examination Z01.20 [place] [id number] [place] [address] 56211- 0251 07 Jul, 2016 Paranoid schizophrenia F20.0 [place] [id number] [place] [address] 15119- 3605 13 Jun, 2016 Paranoid schizophrenia F20.0 and Depression with anxiety F41.8 [place] [id number] [place] [address] 98092- 2773 Jun, Paranoid schizophrenia F20.0 and Depression with anxiety F41.8 [place] [id number] [place] [address] 01956- 8670 Jun, [place] [id number] [place] [address] 51638- 3888 Jun, [facility] [id number] [place] [address] 29984 -4656 Jun, Seasonal allergic rhinitis due to other allergic trigger J30.89 [facility] [id number] [place] [address] 55955 -3763 May, Sore throat J02.9 ; Other viral agents as the cause of diseases classified elsewhere B97.89 and Acute upper respiratory infection, unspecified J06.9 [place] [id number] [place] [address] 34014- 5897 May, Paranoid schizophrenia F20.0 and Depression with anxiety F41.[address] 55527- 3281 Apr, Other seasonal allergic rhinitis J30.2 [place] [address] 52356- 0399 Apr, Paranoid schizophrenia F20.0 and Depression with anxiety F41.8 [facility] [place] [id number] [place] [address] 74673 -3845 Apr, Bronchitis J40 and Sore throat J02.9 [place] [address] 67436- 8867 Apr, Type 2 diabetes mellitus without complication, without long- term current use of insulin E11.9 [facility] [place] [id number] [place] [address] 19226 -0811 Apr, Bronchitis J40 [place] [id number] [place] [address] 20265- 0447 Apr, [place] [id number] [place] [address] 23728- 3013 Apr, [place] [address] 27428- 7052 Mar, Type 2 diabetes mellitus without complication, [...] R60.9 and Other seasonal allergic rhinitis J30.2 [facility] [address], [place] [address]- 3532 09 Mar, 2016 Paranoid schizophrenia F20.0 and Depression with anxiety F41.8 [facility] [address] [address]- 9402 Feb, [facility] [id number] [place] [address] 86853- 3904 Feb, [facility] [id number] [place] [address] 77151- 4316 Feb, [facility] [id number] [place] [address] 50087- 9363 Feb, [facility] [id number] [place] [address] 02547- 1637 Feb, Type 2 diabetes mellitus without complication, without long- term current use of insulin E11.9 ; ARIAS on CPAP G47.33 and Preoperative evaluation to rule out surgical contraindication Z01.818 [facility] [address], [place] [address]- 8898 Feb, Paranoid schizophrenia F20.0 and Depression with anxiety F41.8 [facility] [address], [place] [address]- 3243 Jan, [facility] [address], [place] [address]- 1209 Jan, Paranoid schizophrenia F20.0 and Depression with anxiety F41.8 [facility] [address], [place] [address]- 3870 17 Jan, 2016 [facility] [id number] [place] [address] 18289- 8914 14 Jan, 2016 Muscle strain T14.8 [facility] [address], [place] [address]- 3636 Jan, Paranoid schizophrenia F20.0 [facility] [address] [address]- 0113 Jan, [facility] [address] [address]- 7509 Jan, Paranoid schizophrenia F20.0 and Depression with anxiety F41.8 [facility] [address], [place] [address]- 2382 Jan, [facility] [id number] [place] [address] 88227- 6695 Jan, [facility] [address], [place] [address]- 2274 Dec, [facility] [id number] [place] [address] 51786- 1985 Dec, Paranoid schizophrenia F20.0 [facility] [address], [place] [address]- 1709 Dec, Paranoid schizophrenia F20.0 and Depression with anxiety F41.8 [facility] [address], [place] [address]- 4391 Nov, [facility] [address] [address]- 2133 Nov, Paranoid schizophrenia F20.0 [facility] [address], [place] [address]- 7659 Nov, Paranoid schizophrenia F20.0 and Depression with anxiety F41.8 [facility] [address], [place] [address]- 5066 Nov, Type 2 diabetes mellitus without complication, without long- term current use of insulin E11.9 ; Paranoid schizophrenia F20.0 ; Chronic obstructive pulmonary disease, unspecified COPD type J44.9 ; Morbid obesity due to excess calories E66.01 and Parkinsonian tremor G20 [facility] [address], [place] [address]- 4112 Nov, [facility] [address] [place] [address]- 0112 Oct, Paranoid schizophrenia F20.0 [place] [id number] [place] [address] 83231- 7401 Oct, Paranoid schizophrenia F20.0 [place] [id number] [place] [address] 09369- 2687 Oct, Paranoid schizophrenia F20.0 and Depression with anxiety F41.8 [place] [id number] [place] [address] 10310- 8201 Oct, [place] [id number] [place] [address] 74699- 1600 Oct, Paranoid schizophrenia F20.0 and Depression with anxiety F41.8 [place] [id number] [place] [address] 80029- 4119 Oct, Nasal sore J34.89 [place] [id number] [place] [address] 48699- 6367 Oct, Type 2 diabetes mellitus without complication, without long- term current use of insulin E11.9 ; Depression with anxiety F41.8 ; Hypothyroidism, unspecified type E03.9 and History of lupus Z87.39 [place] [address] [place] [address] 00507- 6611 Oct, [place] [id number] [place] [address] 15852- 0956 Oct, Type 2 diabetes mellitus without complication, [...] edema R60.9 and History of lupus Z87.[address] [facility] [address] [facility] [id number] [place] [address]- 4064 Feb, [facility] [address] [facility] [id number] [place] [address]- 2403 Jan, [facility] [address] [facility] [id number] [place] [address]- 9433 Jan, [facility] [address] [facility] [id number] [place] [address]- 2263 Jan, [facility] [address] [facility] [id number] [place] [address]- 8177 Dec, [facility] [id number], [place] [address]- 5611 Nov, [facility] [address] [place] [address]- 9832 Nov, [facility] [address], [place] [address]- 3085 Oct, [facility] [id number] [place] [address]- 2490 Oct, [facility] [address], [place] [address]- 5676 Oct, [facility] [address], [place] [address]- 6866 Sep, Allergic rhinitis 477.9 [facility] [address], [place] [address]- 7980 Sep, Rhinitis, allergic 477.9 [facility] [id number], [place] [address]- 0804 Sep, Rhinitis, allergic 477.9 [facility] [id number], [place] [address]- 8867 Sep, [facility] [address], [place] [address]- 5876 August, [facility] [place] [facility] [address] [id number] [place] [address]- 7613 August, [facility] [place] [facility] [address] [id number] [place] [address]- 1651 August, [facility] [place] [facility] [address] [id number] [place] [address]- 5369 Jul, [facility] [place] [facility] [address] [id number] [place] [address]- 2914 Jul, [facility] [place] [facility] [address] [id number] [place] [address]- 4644 Jul, [facility] [place] [facility] [address] [id number] [place] [address]- 3782 Jun, [facility] [place] [facility] [address] [id number] [place] [address]- 4321 Jun, [facility] [place] [facility] [address] [id number] [place] [address]- 7705 Jun, [facility] [place] [facility] [address] [id number] [place] [address]- 4814 Jun, [facility] [place] [facility] [address] [id number] [place] [address]- 0908 Jun, [facility] [place] [facility] [address] [id number] [place] [address]- 1384 Jun, [facility] [place] [facility] [address] [id number] [place] [address]- 6945 Jun, [facility] [place] [facility] [address] [id number] [place] 0168 Jun, [facility] [place] [facility] [address] [id number] [place] [address] May, [facility] [place] [facility] [address] [id number] [place] [address] May, [facility] [place] [facility] [address] [id number] [place] [address] 11 May, 2014 [facility] [place] [facility] [address] [id number] [place] [address] May, [facility] [place] [facility] [address] [id number] [place] [address] Apr, [facility] [place] [facility] [address] [id number] [place] [address] Mar, [facility] [place] [facility] [address] [id number] [place] [address] Mar, [facility] [place] [facility] [address] [id number] [place] [address] Mar, [facility] [place] [facility] [address] [id number] [place] [address] Mar, [facility] [place] [facility] [address] [id number] [place] [address] Mar, [facility] [place] [facility] [address] [id number] [place] [address] Mar, [facility] [place] [facility] [address] [id number] [place] [address] Mar, [facility] [place] [facility] [address] [facility] [id number] [place] [address] Mar, [facility] [place] [facility] [address] [id number] [place] [address] Mar, [facility] [place] [facility] [address] [id number] [place] [address] Feb, [facility] [place] [facility] [address] [id number] [place] [address] Feb, [facility] [place] [facility] [address] [id number] [place] [address] Feb, [facility] [place] [facility] [address] [id number] [place] [address] Feb, [facility] [place] [facility] [address] [id number] [place] [address] 14 Feb, 2014 [facility] [place] [facility] [address] [id number] [place] [address] 1759 14 Feb, 2014 [facility] [place] [facility] [address] [id number] [place] [address] Feb, [facility] [place] [facility] [address] [id number] [place] [address] Feb, [facility] [place] [facility] [address] [id number] [place] [address] 8[address] Jan, [facility] [place] [facility] [address] [id number] [place] [address] 5817 23 Jan, 2014 [facility] [place] [facility] [address] [id number] [place] [address] 0467 16 Jan, 2014 [facility] [place] [facility] [address] [id number] [place] [address] 2044 16 Jan, 2014 [facility] [place] [facility] [address] [id number] [place] [address] 0076 15 Jan, 2014 [facility] [place] [facility] [address] [id number] [place] [address] 0350 15 Jan, 2014 [facility] [place] [facility] [address] [id number] [place] [address] 0398 14 Jan, 2014 [facility] [place] [facility] [address] [id number] [place] [address] 0308 14 Jan, 2014 [facility] [place] [facility] [address] [id number] [place] [address]- 0720 14 Jan, 2014 [facility] [place] [facility] [address] [id number] [place] [address]- 5305 14 Jan, 2014 [facility] [place] [facility] [address] [id number] [place] [address] 1340 18 Dec, 2013 [facility] [place] [facility] [address] [id number] [place] [address] 0689 Dec, [facility] [place] [facility] [address] [id number] [place] [address] Dec, [facility] [place] [facility] [address] [id number] [place] [address] 1394 Dec, [facility] [place] [facility] [address] [id number] [place] [address] 0659 Nov, [facility] [place] [facility] [address] [id number] [place] [address] 0248 Nov, [facility] [place] [facility] [address] [id number] [place] [address] 8364 Nov, [facility] [place] [facility] [address] [id number] [place] [address] 5639 Nov, [facility] [place] [facility] [address] [id number] [place] [address] 0340 Nov, [facility] [place] [facility] [address] [id number] [place] [address] 3329 Oct, [facility] [place] [facility] [address] [id number] [place] [address] 3923 Oct, [facility] [place] [facility] [address] [id number] [place] [address] 1580 Oct, [facility] [place] [facility] [address] [id number] [place] [address] 8144 Oct, [facility] [place] [facility] [address] [id number] [place] [address] 9144 Sep, [facility] [place] [facility] [address] [id number] [place] [address] 5194 Sep, [facility] [place] [facility] [address] [id number] [place] [address] 3666 Sep, [facility] [place] [facility] [address] [id number] [place] [address] 6411 Sep, [facility] [place] [facility] [address] [id number] [place] [address] Sep, [facility] [address] [id number] [place] [address] 6826 Sep, [facility] [place] [facility] [address] [id number] [place] [address] 7206 Sep, [facility] [place] [facility] [address] [id number] [place] [address] 5883 Sep, [facility] [place] [facility] [address] [id number] [place] [address]6 August, [facility] [place] [facility] [address] [id number] [place] [address] 8637 August, [facility] [place] [facility] [address] [id number] [place] [address]256 August, [facility] [address] [id number] [place] [address]5 August, [facility] [address] [id number] [place] [address] 8851 August, [facility] [place] [facility] [address] [id number] [place] [address] 5352 August, [facility] [address] [id number] [place] [address] 0652 August, [facility] [place] [facility] [address] [id number] [place] [address] 4787 Jul, [facility] [place] [facility] [address] [id number] [place] [address] 8907 Jul, [facility] [place] [facility] [address] [id number] [place] [address] 5614 Jul, [facility] [place] [facility] [address] [id number] [place] [address]- 3565 Jul, [facility] [place] [facility] [address] [id number] [place] [address] 1871 Jul, [facility] [place] [facility] [address] [id number] [place] [address]- 4398 Jul, [facility] [place] [facility] [address] [id number] [place] [address]- 4995 Jul, [facility] [place] [facility] [address] [id number] [place] [address]- 3591 Jul, [facility] [place] [facility] [address] [id number] [place] [address]- 5751 Jul, [facility] [place] [facility] [address] [id number] [place] [address]- 3760 Jul, [facility] [place] [facility] [address] [id number] [place] [address]- 4594 Jul, [facility] [place] [facility] [address] [id number] [place] [address]- 8436 Jul, [facility] [place] [facility] [address] [id number] [place] [address] 6493 Jun, [facility] [place] [facility] [address] [id number] [place] [address]- 5673 Jun, [facility] [place] [facility] [address] [id number] [place] [address]- 0377 Jun, [facility] [place] [facility] [address] [id number] [place] [address]- 5084 Jun, [facility] [place] [facility] [address] [id number] [place] [address]- 1698 Jun, [facility] [place] [facility] [address] [id number] [place] [address]- 3078 May, [facility] [place] [facility] [address] [id number] [place] [address]- 5928 May, [facility] [place] [facility] [address] [id number] [place] [address]- 5573 May, [facility] [place] [facility] [address] [id number] [place] [address]- 3830 May, [address] [facility] [address] [id number] [place] [address]- 2896 May, 2013 [facility] [place] [facility] [address] [id number] [place] [address] May, 2013 [facility] [address] [id number] [place] [address]- 7776 May, 2013 [facility] [place] [facility] [address] [id number] [place] [address]- 9443 May, 2013 [facility] [place] [facility] [address] [facility] [id number] [place] [address] Mar, [facility] [address] [facility] [id number] [place] 6169 Mar, [facility] [address] [facility] [id number] [place] [address]- 8434 Mar, [facility] [address] [facility] [id number] [place] [address]- [address], [facility] [address] [facility] [id number] [place] [address]- 3883 Mar, [facility] [address] [facility] [id number] [place] [address]- 0344 Mar, [facility] [place] [facility] [address] [facility] [id number] [place] [address]- 8195 Feb, [facility] [address] [id number] [place] [address]- 2487 Feb, [facility] [place] [facility] [address] [facility] [id number] [place] [address]- 6089 Jan, [facility] [place] [facility] [address] [facility] [id number] [place] [address]- 3083 Jan, [facility] [place] [facility] [address] [facility] [id number] [place] [address]- 3648 Jan, [facility] [place] [facility] [address] [id number] [place] [address]- 8959 Jan, [facility] [place] [facility] [address] [id number] [place] [address]- 4490 Jan, [facility] [place] [facility] [address] [id number] [place] [address]- 9583 Jan, [facility] [place] [facility] [address] [id number] [place] [address]- 1140 Jan, [facility] [place] [facility] [address] [id number] [place] [address]- 9219 Jan, [facility] [place] [facility] [address] [id number] [place] [address]- 7034 Jan, [facility] [place] [facility] [address] [id number] [place] [address]- 8148 Jan, [facility] [place] [facility] [address] [id number] [place] [address]- 1083 Dec, [facility] [place] [facility] [address] [id number] [place] [address]- 7324 Nov, [facility] [place] [facility] [address] [id number], [place] [address]- 4970 Nov, [facility] [place] [facility] [address] [id number], [place] [address]- 3604 Nov, [facility] [place] [facility] [address] [id number], [place] [address]- 9003 Oct, [facility] [place] [facility] [address] [id number] [place] [address]- 7941 Oct, [facility] [place] [facility] [address] [id number] [place] [address]- 3179 August, [facility] [place] [facility] [address] [id number], [place] [address]- 7650 Apr, [facility] [place] [facility] [address] [id number], [place] [address]- 1016 Apr, [facility] [address] [id number], [place] [address] 6736 Feb, [facility] [address] [id number], [place] [address]- 9756 Feb, [facility] [id number], [place] [address]- 9126 Dec, [facility] [id number], [place] [address]- 7356 Dec, [facility] [id number], [place] [address]- 9176 Oct, [facility] [id number], [place] [address] 1986 Oct, [facility] [id number], [place] [address]- 0198 Oct, [facility] [address] [id number], [place] [address]- 0256 Jul, IMMUNIZATIONS No Known Immunizations SOCIAL HISTORY Never Assessed REASON FOR VISIT Controlled Med Refill 01/07 PLAN OF CARE VITAL SIGNS MEDICATIONS Medication [...] for psychosis/mental illness , last one in [facility] 4 years ago
--- OUTSIDE RECORDS SUMMARY | 2018-09-02 13:59 | XMS REPORT ---
Author Author EMTRINHSOTO Organization [facility] Address [address] [place] [address] Care Team Providers Care Cabin Crew Name Role Phone STRICKLANDSOTO Carias Unavailable PROBLEMS Type Condition ICD9-CM Code [id number] Code Onset Dates Condition Status SNOMED Code Problem Morbid obesity due to excess calories E66.01 Active 308323223 Problem Type 2 diabetes mellitus without complication, without long-term current use of insulin E11.9 Active 872742198 Problem Paranoid schizophrenia F20.0 Active 60138182 Problem Other elevated white blood cell (WBC) count D72.828 Active 971358249 Problem Primary insomnia F51.01 Active 2567202 Problem Gastroesophageal reflux disease without esophagitis K21.9 Active 735945846 Problem ARIAS on CPAP G47.33 Active 67363346 Problem Schizoaffective disorder, depressive type F25.1 Active 53918374 Problem Seasonal allergic rhinitis due to other allergic trigger J30.89 Active 584746645 Problem History of lupus Z87.39 Active 186051339 Problem Peripheral edema R60.9 Active 951132972 Problem OAB (overactive bladder) N32.81 Active 731921021 Problem Depression with anxiety F41.8 Active 325031110 Problem Parkinsonian tremor G20 Active 082896025 Problem Chronic pain syndrome G89.4 Active 635815807 Problem Hypothyroidism, unspecified type E03.9 Active 40624083 Problem Chronic obstructive pulmonary disease, unspecified COPD type J44.9 Active 91826299 ALLERGIES Unknown Allergies SOCIAL HISTORY No smoking Hx information available PLAN OF CARE VITAL SIGNS MEDICATIONS Unknown Medications RESULTS No Results PROCEDURES No Known procedures IMMUNIZATIONS No Known Immunizations
--- OUTSIDE RECORDS SUMMARY | 2018-09-02 13:59 | XMS REPORT ---
Author Author STRICKLANDSOTO Carias Organization [facility] Address [address] [place] [address] Care Team Providers Care Glass Products Inspector Name Role Phone STRICKLANDSOTO Carias Unavailable PROBLEMS Type Condition ICD9-CM Code MOS88-WR Code Onset Dates Condition Status SNOMED Code Problem Other seasonal allergic rhinitis J30.2 Active 510743630 Problem Gastroesophageal reflux disease, esophagitis presence not specified K21.9 Active 306350307 Problem Tobacco abuse Z72.0 Active 004445618 Problem Seasonal allergic rhinitis due to pollen J30.1 Active 18056056 Problem History of lupus Z87.39 Active 127570753 Problem COPD exacerbation J44.1 Active 416577533 Problem OAB (overactive bladder) N32.81 Active 478722849 Problem Morbid obesity due to excess calories E66.01 Active 153444899 Problem Dyslipidemia E78.5 Active 838900338 Problem Migraine without aura and without status migrainosus, not intractable G43.009 Active 547192641 Problem Hypothyroidism (acquired) E03.9 Active 787257858 Problem Essential hypertension I10 Active 36608942 Problem Type 2 diabetes mellitus without complication, without long-term current use of insulin E11.9 Active 134587912 Problem Gastroesophageal reflux disease without esophagitis K21.9 Active 268406900 Problem Chronic pain syndrome G89.4 Active 654482123 Problem Paranoid schizophrenia F20.0 Active 02271812 Problem Primary insomnia F51.01 Active 5627586 Problem DM neuro manif type II E11.49 Active 87224141 Problem Depression with anxiety F41.8 Active 753705400 Problem Seasonal allergic rhinitis due to other allergic trigger J30.89 Active 803858969 Problem Menopausal syndrome (hot flashes) N95.1 Active 502778220 Problem Chronic obstructive pulmonary disease, unspecified COPD type J44.9 Active 46440641 Problem Schizoaffective disorder, depressive type F25.1 Active 60823493 Problem Other allergic rhinitis J30.89 Active 851745056 ALLERGIES No Information ENCOUNTERS Encounter Location Date Diagnosis [facility] [address] [address] Nov, [facility] [address] [place] [id number] [place] [address] 24708- 2783 Oct, [facility] [id number] [address] Sep, [facility] [id number] [place] [address] 49059- 0319 Sep, Schizoaffective disorder, depressive type F25.1 [facility] [id number] [place] [address] 74804- 5584 Sep, [facility] [id number] [place] [address] 48458- 3387 Sep, Paranoid schizophrenia F20.0 [facility] [id number] [place] [address] 05557- 9038 Sep, [facility] [id number] [place] [address] 53078- 9551 Sep, Hypothyroidism (acquired) E03.9 [facility] [id number] [place] [address] 13108- 5227 Sep, [facility] [address], [place] [address] August, Schizoaffective disorder, depressive type F25.1 [facility] [address] [address] 39[address] August, [facility] [id number] [address] August, [facility] [id number] [address] 7171 August, [facility] [address], [place] [address] 3953 August, Paranoid schizophrenia F20.0 [place] [place] [id number] [place] [address] 11884- 7340 August, History of lupus Z87.39 and Chronic pain syndrome G89.4 [place] [address] 76418- 1852 August, [facility] [place] [address] 80596 -3727 August, Seasonal allergic rhinitis, unspecified trigger J30.2 and BMI 45.0-49.9, adult Z68.42 [place] [address] 34963- 2382 Jul, Schizoaffective disorder, depressive type F25.1 [place] [address] 98490- 9935 Jul, [place] [address] 08111- 7373 Jul, Hypothyroidism (acquired) E03.9 [place] [address] 34145- 6187 Jul, Chronic obstructive pulmonary disease, unspecified COPD type J44.9 and Type 2 diabetes mellitus without complication, without long-term current use of insulin E11.9 [place] [address] 84134- 6811 Jul, Paranoid schizophrenia F20.0 [place] [address] 88348- 2233 Jun, Hypothyroidism (acquired) E03.9 and Seasonal allergic rhinitis due to pollen J30.1 [facility] [place] [address] 32772 -6396 Jun, Shortness of breath at rest R06.02 ; COPD exacerbation J44.1 and BMI 45.0-49.9, adult Z68.42 [place] [address] 56632- 9791 Jun, [facility] [id number] [place] [address] 93429- 4304 Jun, Paranoid schizophrenia F20.0 ; Depression with anxiety F41.8 and BMI 45.0-49.9, adult Z68.42 [facility] [address] 77907- 0269 Jun, Schizoaffective disorder, depressive type F25.1 [facility] [address] [id number] Jun, Dental caries K02.9 [facility] [address] 68355- 5005 Jun, Paranoid schizophrenia F20.0 [facility] [address] 85651- 2124 May, Migraine without aura and without status migrainosus, not intractable G43.009 ; DM neuro manif type II E11.49 and Type 2 diabetes mellitus without complication, without long-term current use of insulin E11.9 [facility] [address] 99790- 5394 May, Migraine without aura and without status migrainosus, not intractable G43.009 [facility] [id number] [place] [address] 22389- 9531 May, Depression with anxiety F41.8 [facility] [address] [id number] [place] [address] [id number] May, [facility] [address] 42698- 9217 May, [facility] [address] 80789- 6576 May, [facility] [address] 88998- 9955 May, Hypothyroidism (acquired) E03.9 [facility] [id number] [place] [address] 14787- 3888 08 May, 2017 Paranoid schizophrenia F20.0 [place] [address] 13506- 9130 08 May, 2017 Type 2 diabetes mellitus [...] N32.81 and Controlled substance agreement signed Z79.899 [place] [address] 33980- 2953 02 May, 2017 Controlled substance agreement signed Z79.899 [place] [address] 65955- 6724 Apr, [facility] [address] [id number] Apr, Dental examination Z01.20 [place] [address] 67867- 8965 Apr, Paranoid schizophrenia F20.0 [place] [address] [place] [id number] [place] [address] 95530- 4732 Apr, Hypertension, unspecified type I10 [place] [address] 93394- 8427 Apr, Paranoid schizophrenia F20.0 [place] [address] 51785- 8101 Apr, [facility] [address] 13923- 5858 Apr, Tobacco abuse Z72.0 [facility] [id number] [place] [address] 72959- 7598 Apr, [facility] [id number] [place] [address] 94288- 9286 Mar, [facility] [id number] [place] [address] 95954- 8236 Mar, Paranoid schizophrenia F20.0 and BMI 45.0-49.9, adult Z68.42 [facility] [id number] [place] [address] 63838- 0585 Mar, Schizoaffective disorder, depressive type F25.1 [facility] [id number] [place] [address] 14184- 1614 Mar, [facility] [id number] [place] [address] 92983- 6485 Mar, Schizoaffective disorder, depressive type F25.1 [facility] [id number] [place] [address] 42294- 5209 Mar, Hypothyroidism, unspecified type E03.9 [facility] [id number] [place] [address] 60769 -7093 Feb, Gastroenteritis K52.9 and BMI 45.0-49.9, adult Z68.42 [facility] [address] [place] [address] 69246- 0947 Feb, [facility] [id number] [place] [address] 07539- 0719 Feb, [facility] [id number] [place] [address] 13042- 2975 Feb, [facility] [id number] [place] [address] 82212- 5714 Feb, [facility] [id number] [place] [address] 32974- 8953 Feb, Paranoid schizophrenia F20.0 [place] [address] [place] [address] [id number] [place] [address] 51772- 6260 Feb, Gastroesophageal reflux disease without esophagitis K21.9 ; Other seasonal allergic rhinitis J30.2 ; Other allergic rhinitis J30.89 ; Tobacco abuse Z72.0 and BMI 40.0-44.9, adult Z68.[address] 71887- 4214 Feb, Onychomycosis B35.1 ; Callus of foot L84 and DM neuro manif type II E11.[address] 42083- 5562 Jan, Chronic allergic rhinitis J30.9 [place] [address] 62787- 0251 Jan, [address] 27398- 4297 Jan, Schizoaffective disorder, depressive type F25.1 [place] [address] 65587- 6858 Jan, [facility] [address] [place] [address] 90274 -4704 Jan, Sore throat J02.9 and Seasonal allergic rhinitis due to other allergic trigger J30.89 [place] [address] 49088- 2146 Jan, [place] [address] 10781- 5803 Jan, [facility] [address] [place] [address] 81976 -6780 Jan, Chronic allergic rhinitis J30.9 [place] [address] [place] [id number] [place] [address] 53490- 6051 Dec, Paranoid schizophrenia F20.0 ; Primary insomnia F51.01 and Schizoaffective disorder, depressive type F25.1 [place] [address] [place] [id number] [place] [address] 50717- 2750 21 Dec, 2016 Chronic pain syndrome G89.4 ; Cervicalgia of occipito- atlanto-axial region M54.2 ; Menopausal syndrome (hot flashes) N95.1 and Encounter for immunization Z23 [place] [address] 56769- 5023 14 Dec, 2016 [place] [address] [place] [id number] [place] [address] 69711- 2608 Dec, [place] [address] 83917- 7802 Dec, Paranoid schizophrenia F20.0 [facility] [place] [address] [place] [id number] [place] [address] 39918- 0061 Dec, Schizoaffective disorder, depressive type F25.1 [place] [address] [place] [id number] [place] [address] 25978- 4990 Nov, Hypothyroidism, unspecified type E03.9 [facility] [id number] [place] [address] 34669 -3411 Nov, Acute seasonal allergic rhinitis due to other allergen J30.89 [place] [address] [place] [id number] [place] [address] 75593- 4542 Nov, [place] [place] [address] [place] [id number] [place] [address] 86699- 9417 Nov, Hypothyroidism, unspecified type E03.9 and Other elevated white blood cell (WBC) count D72.828 [place] [address] [place] [id number] [place] [address] 22847- 9605 Nov, Schizoaffective disorder, depressive type F25.1 [place] [address] [place] [id number] [place] [address] 10404- 4459 Nov, Paranoid schizophrenia F20.0 [place] [address], [place] [address]- 5325 Nov, Type 2 diabetes mellitus without complication, without long- term current use of insulin E11.9 ; Morbid obesity due to excess calories E66.01 and Chronic pain syndrome G89.4 [place] [id number] [address]- 7987 Oct, Paranoid schizophrenia F20.0 [place] [address] [place] [id number] [place] [address] 43046- 7975 Oct, [place] [id number] [place] [address] 78952- 6728 Oct, Schizoaffective disorder, depressive type F25.1 [place] [id number] [place] [address] 30016- 8479 Oct, Hypothyroidism, unspecified type E03.9 and Other elevated white blood cell (WBC) count D72.828 [place] [address] [place] [id number] [place] [address] 31621- 3480 Oct, Morbid obesity due to excess calories E66.01 ; Chronic obstructive pulmonary disease, unspecified COPD type J44.9 ; History of lupus Z87.39 ; Hypothyroidism, unspecified type E03.9 ; Gastroesophageal reflux disease without esophagitis K21.9 ; Primary insomnia F51.01 and Chronic pain syndrome G89.4 [place] [address], [place] [address]- 8084 Sep, [place] [place] [address] [place] [id number] [place] [address] 09102- 8484 Sep, [facility] [place] [address] [place] [id number] [place] [address] 49072- 8666 Sep, [place] [place] [address] [place] [id number] [place] [address] 84889- 2766 Sep, Paranoid schizophrenia F20.0 [place] [id number] [place] [address] 95232- 3170 Sep, [facility] [address], [place] [address]- 6691 Sep, Paranoid schizophrenia F20.0 [facility] [id number] [place] [address] 67099- 6691 Sep, [facility] [id number] [place] [address] 02558- 6446 August, Paranoid schizophrenia F20.0 [facility] [id number] [place] [address] 89670- 0968 Jul, [facility] [address] [place] [address] 71039- 4589 Jul, Type 2 diabetes mellitus without complication, without long- term current use of insulin E11.9 ; Morbid obesity due to excess calories E66.01 ; Depression with anxiety F41.8 ; Hypothyroidism, unspecified type E03.9 ; Seasonal allergic rhinitis due to other allergic trigger J30.89 ; Pain, dental K08.89 and Gastroesophageal reflux disease without esophagitis K21.9 [facility] [address] [id number] Jul, Dental examination Z01.20 [place] [address] [place] [address] 43470- 3237 07 Jul, 2016 Paranoid schizophrenia F20.0 [facility] [address], [place] [address]- 2846 Jun, Paranoid schizophrenia F20.0 and Depression with anxiety F41.8 [facility] [address] [place] [address] 72627- 6902 Jun, Paranoid schizophrenia F20.0 and Depression with anxiety F41.8 [facility] [address], [place] [address]- 0477 09 Jun, 2016 [facility] [address], [place] [address]- 4064 08 Jun, 2016 [facility] [address] [place] [id number] [place] [address] 20474 -5333 08 Jun, 2016 Seasonal allergic rhinitis due to other allergic trigger J30.89 [facility] [address] 52668 -5303 25 May, 2016 Sore throat J02.9 ; Other viral agents as the cause of diseases classified elsewhere B97.89 and Acute upper respiratory infection, unspecified J06.[address] 07096- 0687 08 May, 2016 Paranoid schizophrenia F20.0 and Depression with anxiety F41.[address] 41177- 6266 Apr, Other seasonal allergic rhinitis J30.[address] 56532- 3515 Apr, Paranoid schizophrenia F20.0 and Depression with anxiety F41.8 [facility] [place] [id number] [place] [address] 13263 -7280 Apr, Bronchitis J40 and Sore throat J02.[address] 56117- 2991 Apr, Type 2 diabetes mellitus without complication, without long- term current use of insulin E11.9 [facility] [place] [id number] [place] [address] 36395 -3927 Apr, Bronchitis J40 [place] [address] [place] [id number] [place] [address] 03953- 8653 Apr, [address] 21135- 4668 Apr, [address] 66630- 5039 Mar, Type 2 diabetes mellitus without complication, [...] R60.9 and Other seasonal allergic rhinitis J30.2 [place] [address] [place] [id number] [place] [address] 03182- 2356 Mar, Paranoid schizophrenia F20.0 and Depression with anxiety F41.8 [place] [address] [place] [id number] [place] [address] 44830- 8567 Feb, [place] [address] 28885- 4043 Feb, [place] [address] [place] [id number] [place] [address] 85176- 0415 Feb, [place] [address] 09007- 6155 Feb, [place] [address] [place] [id number] [place] [address] 20908- 5322 Feb, Type 2 diabetes mellitus without complication, without long- term current use of insulin E11.9 ; ARIAS on CPAP G47.33 and Preoperative evaluation to rule out surgical contraindication Z01.818 [place] [address] [place] [id number] [place] [address] 27064- 5322 Feb, Paranoid schizophrenia F20.0 and Depression with anxiety F41.8 [place] [address] [place] [id number] [place] [address] 36290- 6305 Jan, [place] [address] 75805- 7631 Jan, Paranoid schizophrenia F20.0 and Depression with anxiety F41.8 [place] [address] [place] [id number] [place] [address] 41050- 4923 17 Jan, 2016 [place] [address] 40500- 5512 14 Jan, 2016 Muscle strain T14.8 [facility] [address] [place] [id number], [place] [address]- 9652 Jan, Paranoid schizophrenia F20.0 [facility] [address] [place] [address] [id number] [place] [address] 96061- 8906 Jan, [facility] [address] [id number] [place] [address] 12361- 6729 Jan, Paranoid schizophrenia F20.0 and Depression with anxiety F41.8 [facility] [address] [place] [id number] [place] [address] 39438- 0595 Jan, [facility] [address] [id number] [place] [address] 61035- 7041 Jan, [facility] [address] [id number] [place] [address] 06214- 1395 Dec, [facility] [address] [place] [id number] [place] [address] 30971- 6175 23 Dec, 2015 Paranoid schizophrenia F20.0 [facility] [address] [id number] [place] [address] 70404- 0662 16 Dec, 2015 Paranoid schizophrenia F20.0 and Depression with anxiety F41.8 [facility] [address] [place] [address] 13243- 7469 Nov, [facility] [id number] [place] [address] 66770- 1868 Nov, Paranoid schizophrenia F20.0 [facility] [address] [id number], [place] [address]- 5088 Nov, Paranoid schizophrenia F20.0 and Depression with anxiety F41.8 [facility] [id number], [place] [address]- 2499 Nov, Type 2 diabetes mellitus without complication, without long- term current use of insulin E11.9 ; Paranoid schizophrenia F20.0 ; Chronic obstructive pulmonary disease, unspecified COPD type J44.9 ; Morbid obesity due to excess calories E66.01 and Parkinsonian tremor G20 [place] [address] [place] [id number] [place] [address] 71944- 1005 Nov, [place] [address] [place] [id number] [place] [address] 11737- 9926 Oct, Paranoid schizophrenia F20.0 [place] [address] 33927- 3914 Oct, Paranoid schizophrenia F20.0 [place] [address] [place] [id number] [place] [address] 66743- 3645 Oct, Paranoid schizophrenia F20.0 and Depression with anxiety F41.8 [place] [address] [place] [id number] [place] [address] 34866- 9753 Oct, [place] [address] 48941- 1777 Oct, Paranoid schizophrenia F20.0 and Depression with anxiety F41.8 [place] [address] [place] [id number] [place] [address] 38877- 1341 Oct, Nasal sore J34.89 [place] [address] [place] [id number] [place] [address] 37676- 1388 Oct, Type 2 diabetes mellitus without complication, without long- term current use of insulin E11.9 ; Depression with anxiety F41.8 ; Hypothyroidism, unspecified type E03.9 and History of lupus Z87.39 [place] [address] [place] [id number] [place] [address] 08865- 4600 Oct, [place] [address] [place] [id number] [place] [address] 32098- 1842 Oct, Type 2 diabetes mellitus without complication, [...] Z87.39 [facility] [address] [place] [id number] [place] [address] 600428- 6800 Feb, [facility] [address] 62188- 3133 Jan, [facility] [address] [place] [address] [id number] [place] [address] 18283- 8929 Jan, [facility] [address] 02683- 2371 Jan, [facility] [address] [place] [id number] [place] [address] 78311- 6649 Dec, [facility] [address] [place] [id number] [place] [address] 96956- 1679 Nov, [facility] [address] [place] [id number] [place] [address] 27410- 3679 Nov, [facility] [address] [place] [id number] [place] [address] 73347- 3071 Oct, [facility] [address] [place] [id number] [place] [address] 78976- 7188 Oct, [facility] [address] [place] [address] [id number] [place] [address] 33736898- 7019 Oct, [facility] [address] [id number] [place] [address] 45840- 6563 Sep, Allergic rhinitis 477.9 [facility] [address] [place] [id number] [place] [address] 65902- 8739 11 Sep, 2014 Rhinitis, allergic 477.9 [facility] [address] [place] [id number] [place] [address] 41309- 4616 10 Sep, 2014 Rhinitis, allergic 477.9 [facility] [place] [facility] [address] [id number] [place] [address]- 4060 Sep, [facility] [place] [facility] [address] [id number] [place] [address]- 7268 August, [facility] [place] [facility] [address] [id number] [place] [address]- 6422 August, [facility] [place] [facility] [address] [id number] [place] [address]- 0298 August, [facility] [place] [facility] [address] [id number] [place] [address] Jul, [facility] [place] [facility] [address] [id number] [place] [address] Jul, [facility] [place] [facility] [address] [id number] [place] [address] Jul, [facility] [place] [facility] [address] [id number] [place] [address] Jun, [facility] [place] [facility] [address] [id number] [place] [address] Jun, [facility] [place] [facility] [address] [id number] [place] [address] Jun, [facility] [place] [facility] [address] [id number] [place] [address] Jun, [facility] [facility] [address] [id number] [place] [address] Jun, [facility] [place] [facility] [address] [id number] [place] [address] Jun, [facility] [place] [facility] [address] [id number] [place] [address] Jun, [facility] [place] [facility] [address] [facility] [id number] [place] [address] Jun, [facility] [place] [facility] [address] [id number] [place] [address] 17 May, 2014 [facility] [address] [id number] [place] [address] May, 2014 [facility] [place] [facility] [address] [id number] [place] [address] 11 May, 2014 [facility] [address] [id number] [place] [address] May, 2014 [facility] [place] [facility] [address] [id number] [place] [address] Apr, [facility] [address] [id number] [place] [address] Mar, [facility] [address] [id number] [place] [address] Mar, [facility] [address] [id number] [place] [address] 1067 Mar, [facility] [address] [id number] [place] [address] Mar, [facility] [address] [id number] [place] [address] 2660 Mar[facility] [address] [facility] [id number] [place] [address] 1610 Mar, [facility] [address] [id number] [place] [address] 29[address] Mar, [facility] [address] [id number] [place] [address] 8986 Mar, [facility] [place] [address] [id number] [place] [address] 97[address] Mar, [facility] [address] [id number] [place] [address] Feb, [facility] [address] [id number] [place] [address] Feb, [facility] [address] [id number] [place] [address]- 0964 Feb, [facility] [address] [id number] [place] [address]- 7705 17 Feb, 2014 [facility] [address] [id number] [place] [address]- 4236 Feb, [facility] [address] [id number] [place] [address]- 5549 Feb, [facility] [address] [id number] [place] [address]- 1015 Feb, [facility] [address] [id number] [place] [address]- [address] Feb, [facility] [address] [id number] [place] [address]- [address] 23 Jan, 2014 [facility] [address] [id number] [place] [address]- 9[address] 23 Jan, 2014 [facility] [address] [id number] [place] [address]- 6[address] 16 Jan, 2014 [facility] [address] [id number] [address] 16 Jan, 2014 [facility] [address] [id number], [place] [address] 67[address] 15 Jan, 2014 [facility] [address] [id number][place] [address] 15 Jan, 2014 [facility] [address] [id number] [place] [address]- 4381 14 Jan, 2014 [facility] [address] [id number] [place] [address]- 0344 14 Jan, 2014 [facility] [address] [id number], [place] [address] 14 Jan, 2014 [facility] [address] [id number][place] [address] 8616 14 Jan, 2014 [facility] [address] [id number] [place] [address] 3840 18 Dec, 2013 [facility] [address] [id number] [place] [address]- 4442 18 Dec, 2013 [facility] [address] [id number] [place] [address]- 8732 Dec, [facility] [address] [id number] [place] [address]- 2362 Dec, [facility] [address] [id number] [place] [address]- 8110 Nov, [facility] [address] [id number] [place] [address]- 7517 Nov, [facility] [address] [id number] [place] [address]- 9476 Nov, [facility] [address] [id number] [place] [address]- 5615 Nov, [facility] [address] [id number] [place] [address]- 4623 Nov, [facility] [address] [id number] [place] [address]- 0009 Oct, [facility] [address] [id number] [place] [address]- 6284 Oct, [facility] [address] [id number] [place] [address]- 2397 Oct, [facility] [address] [id number] [place] [address]- 7744 Oct, [facility] [address] [id number] [place] [address]- 5197 Sep, [facility] [address] [id number] [place] [address]- 1071 Sep, [facility] [address] [id number] [place] [address]- 1774 Sep, [facility] [address] [id number] [place] [address]- 8545 Sep, [facility] [address] [id number] [place] [address] Sep, [facility] [address] [id number] [place] [address]- 0784 Sep, [facility] [address] [id number] [place] [address]- 7885 Sep, [facility] [address] [id number] [place] [address]- 7805 Sep, [facility] [address] [id number] [place] [address]- 6420 August, [facility] [address] [id number] [place] [address]- 1685 August, [facility] [address] [id number] [place] [address]- 7866 August, [facility] [address] [id number] [place] [address]- 8298 August, [facility] [address] [id number] [place] [address]- 7455 August, [facility] [address] [id number] [place] [address]- 0606 August, [facility] [address] [id number] [place] [address]- 5808 August, [facility] [address] [id number] [place] [address]- 7773 Jul, [facility] [address] [id number] [place] [address]- 0053 Jul, [facility] [address] [id number] [place] [address]- 2328 Jul, [facility] [address] [id number] [place] [address]- 7549 Jul, [facility] [address] [id number] [place] [address]- 9866 Jul, [facility] [address] [id number] [place] [address] Jul, [facility] [address] [id number] [place] [address]- 1300 Jul, [facility] [address] [id number] [place] [address]- 3421 Jul, [facility] [address] [id number] [place] [address]- 8607 Jul, [facility] [address] [id number] [place] [address]- 7848 Jul, [facility] [address] [id number] [place] [address]- 3205 Jul, [facility] [address] [id number] [place] [address]- 9843 Jul, [facility] [address] [id number] [place] [address]- 7921 Jun, [facility] [address] [id number] [place] [address]- 2126 Jun, [facility] [address] [id number] [place] [address]- 1281 Jun, [facility] [address] [id number] [place] [address]- 9065 Jun, [facility] [address] [id number] [place] [address] Jun, [facility] [address] [id number] [place] [address]- 2650 May, [facility] [address] [id number] [place] [address]- 6569 May, 2013 [facility] [address] [id number] [place] [address]- 6526 May, 2013 [facility] [address] [id number] [place] [address] 2546 May, 2013 [facility] [address] [id number] [place] [address]- 7176 May, 2013 [facility] [address] [id number] [place] [address]- 2725 May, 2013 [facility] [address] [id number] [place] [address]- 9246 May, 2013 [facility] [address] [facility] [id number] [place] [address]- 4259 May, 2013 [facility] [address] [facility] [id number] [place] [address]- 5205 Mar, [facility] [address] [id number] [place] [address]- 9314 Mar, [facility] [address] [facility] [id number] [place] [address]- 2660 Mar, [facility] [address] [facility] [id number] [place] [address]- 8036 Mar, [facility] [address] [facility] [id number] [place] [address] 2546 Mar, [facility] [address] [id number] [place] [address] 2542 Mar, [facility] [address] [facility] [id number] [place] [address] 2546 Feb, [facility] [address] [facility] [id number] [place] [address] 2541 Feb, [facility] [address] [facility] [id number] [place] [address]- 3214 Jan, [facility] [address] [id number] [place] [address]- 0848 Jan, [facility] [address] [id number] [place] [address]- 6579 Jan, [facility] [address] [id number] [place] [address]- 7026 Jan, [facility] [address] [id number] [place] [address]- 7289 Jan, [facility] [address] [id number] [place] [address]- 7409 Jan, [facility] [address] [id number] [place] [address]- 7774 Jan, [facility] [address] [id number] [place] [address]- 3713 Jan, [facility] [address] [id number] [place] [address]- 0488 Jan, [facility] [address] [id number] [place] [address]- 2882 Jan, [facility] [place] [address] [id number] [place] [address]- 6772 Dec, [facility] [address] [id number], [place] [address]- 9771 Nov, [facility] [address] [id number], [place] [address]- 7871 Nov, [facility] [address] [id number] [place] [address]- 4097 Nov, [facility] [address] [id number], [place] [address]- 1871 Oct, [facility] [address] [id number] [place] [address]- 4600 Oct, [facility] [address] [id number] [address]- [address] August, [facility] [id number], [place] [address]- 4899 Apr, [facility] [id number], [place] [address]- 8005 Apr, [facility] [id number], [place] [address]- 5934 Feb, [facility] [id number], [place] [address]- 3751 Feb, [facility] [id number] [place] [address]- 0274 Dec, [facility] [id number], [place] [address]- 8359 Dec, [facility] [id number] [place] [address]- 9993 Oct, [facility] [id number], [place] [address]- 3019 Oct, [facility] [id number], [place] [address]- 5174 Oct, [facility] [address] [id number], [place] [address]- 9881 Jul, IMMUNIZATIONS No Known Immunizations SOCIAL HISTORY Never Assessed REASON FOR VISIT Controlled Med Refill PLAN OF CARE VITAL SIGNS MEDICATIONS Medication Instructions Dosage Frequency Start Date End Date Duration Status Zolpidem Tartrate 5MG Orally Once a day TAKE ONE TABLET BY MOUTH AT BEDTIME 24h 30 days Active RESULTS No Results [...] for psychosis/mental illness , last one in [facility] 4 years ago
--- OUTSIDE RECORDS SUMMARY | 2018-09-02 14:00 | XMS REPORT ---
Author Author STRICKLANDSOTO Carias Organization [facility] Address [address] [place] [address] Care Team Providers Care Rock Dust Sprayer Name Role Phone SOTO STRICKLAND Unavailable PROBLEMS Type Condition ICD9-CM Code NZZ74-QL Code Onset Dates Condition Status SNOMED Code Problem Other seasonal allergic rhinitis J30.2 Active 266114692 Problem Gastroesophageal reflux disease, esophagitis presence not specified K21.9 Active 139753692 Problem Tobacco abuse Z72.0 Active 919325739 Problem Seasonal allergic rhinitis due to pollen J30.1 Active 28703614 Problem History of lupus Z87.39 Active 387676783 Problem COPD exacerbation J44.1 Active 095571394 Problem OAB (overactive bladder) N32.81 Active 621072824 Problem Morbid obesity due to excess calories E66.01 Active 443331456 Problem Dyslipidemia E78.5 Active 768615383 Problem Migraine without aura and without status migrainosus, not intractable G43.009 Active 510673544 Problem Hypothyroidism (acquired) E03.9 Active 022045446 Problem Essential hypertension I10 Active 76224210 Problem Type 2 diabetes mellitus without complication, without long-term current use of insulin E11.9 Active 293564993 Problem Gastroesophageal reflux disease without esophagitis K21.9 Active 547733932 Problem Chronic pain syndrome G89.4 Active 688518717 Problem Paranoid schizophrenia F20.0 Active 35423635 Problem Primary insomnia F51.01 Active 1064366 Problem DM neuro manif type II E11.49 Active 14939346 Problem Depression with anxiety F41.8 Active 432758563 Problem Seasonal allergic rhinitis due to other allergic trigger J30.89 Active 197365019 Problem Menopausal syndrome (hot flashes) N95.1 Active 370138485 Problem Chronic obstructive pulmonary disease, unspecified COPD type J44.9 Active 46859788 Problem Schizoaffective disorder, depressive type F25.1 Active 43188970 Problem Other allergic rhinitis J30.89 Active 226330961 ALLERGIES No Information ENCOUNTERS Encounter Location Date Diagnosis [place] [id number] [place] [address] 96748- 5764 Nov, [place] [address] 01622- 2227 Sep, [place] [address] 31712- 6160 August, History of lupus Z87.39 [place] [address] 81306- 1939 August, [facility] [address] 81385 -2271 August, Seasonal allergic rhinitis, unspecified trigger J30.2 and BMI 45.0-49.9, adult Z68.42 [place] [address] 21781- 7219 Jul, Schizoaffective disorder, depressive type F25.1 [place] [address] 77964- 0603 Jul, [place] [address] 78772- 7146 Jul, Hypothyroidism (acquired) E03.9 [place] [address] 49354- 5600 Jul, Chronic obstructive pulmonary disease, unspecified COPD type J44.9 and Type 2 diabetes mellitus without complication, without long-term current use of insulin E11.9 [place] [id number] [place] [address] 03611- 7469 Jul, Paranoid schizophrenia F20.0 [place] [address] 75711- 1744 Jun, Hypothyroidism (acquired) E03.9 and Seasonal allergic rhinitis due to pollen J30.1 [facility] [address] 38746 -[address] Jun, Shortness of breath at rest R06.02 ; COPD exacerbation J44.1 and BMI 45.0-49.9, adult Z68.42 [facility] [id number] [place] [address] 41877- 5481 Jun, [facility] [id number] [place] [address] 79315- 7086 Jun, Paranoid schizophrenia F20.0 ; Depression with anxiety F41.8 and BMI 45.0-49.9, adult Z68.42 [facility] [id number] [place] [address] 42208- 1344 Jun, Schizoaffective disorder, depressive type F25.1 [facility] [id number] [place] [address] [id number] Jun, Dental caries K02.9 [facility] [address] 44495- 3762 Jun, Paranoid schizophrenia F20.0 [facility] [id number] [place] [address] 88065- 2614 May, Migraine without aura and without status migrainosus, not intractable G43.009 ; DM neuro manif type II E11.49 and Type 2 diabetes mellitus without complication, without long-term current use of insulin E11.9 [facility] [address] [place] [address] 08067- 3829 May, Migraine without aura and without status migrainosus, not intractable G43.009 [facility] [id number] [place] [address] 41696- 5695 May, Depression with anxiety F41.8 [facility] [id number] [place] [address] [id number] May, [facility] [id number] [place] [address] 35289- 6416 May, [facility] [address] [place] [address]- 5942 May, [place] [address] 36572- 7051 09 May, 2017 Hypothyroidism (acquired) E03.9 [place] [address] 21443- 1350 08 May, 2017 Paranoid schizophrenia F20.0 [place] [address] 71877- 7467 May, Type 2 diabetes mellitus without complication, [...] N32.81 and Controlled substance agreement signed Z79.899 [place] [address] 01486- 9029 02 May, 2017 Controlled substance agreement signed Z79.899 [place] [address] 78062- 1085 Apr, [facility] [address] [id number] Apr, Dental examination Z01.20 [place] [address] 04933- 1344 Apr, Paranoid schizophrenia F20.0 [place] [address] 99574- 7969 Apr, Hypertension, unspecified type I10 [place] [address] 57198- 0944 Apr, Paranoid schizophrenia F20.0 [facility] [id number] [place] [address] 30431- 5344 Apr, [facility] [id number] [place] [address] 33516- 9852 Apr, Tobacco abuse Z72.0 [facility] [id number] [place] [address] 11049- 2277 Apr, [facility] [id number] [place] [address] 85967- 9016 Mar, [facility] [address] 45337- 2665 Mar, Paranoid schizophrenia F20.0 and BMI 45.0-49.9, adult Z68.42 [place] [address] 48517- 2176 Mar, Schizoaffective disorder, depressive type F25.1 [facility] [id number] [place] [address] 11228- 1967 Mar, [place] [address] 43812- 5780 Mar, Hypothyroidism, unspecified type E03.9 [facility] [id number] [place] [address] 66401- 7404 Mar, Schizoaffective disorder, depressive type F25.1 [facility] [id number] [place] [address] 56570 -5609 Feb, Gastroenteritis K52.9 and BMI 45.0-49.9, adult Z68.42 [facility] [address] 70938- 4413 Feb, [facility] [id number] [place] [address] 87528- 7655 Feb, [facility] [address] 61016- 1142 Feb, [place] [address] 59053- 5463 Feb, [place] [address] 74238- 1203 Feb, Paranoid schizophrenia F20.[address] 75833- 1894 Feb, Gastroesophageal reflux disease without esophagitis K21.9 ; Other seasonal allergic rhinitis J30.2 ; Other allergic rhinitis J30.89 ; Tobacco abuse Z72.0 and BMI 40.0-44.9, adult Z68.[address] 08399- 2022 Feb, Onychomycosis B35.1 ; Callus of foot L84 and DM neuro manif type II E11.[address] 99439- 7490 Jan, Chronic allergic rhinitis J30.9 [place] [address] 62195- 2736 Jan, [address] 60158- 9866 Jan, Schizoaffective disorder, depressive type F25.1 [place] [address] 33881- 9310 Jan, [facility] [address] 77682 -0307 Jan, Sore throat J02.9 and Seasonal allergic rhinitis due to other allergic trigger J30.89 [place] [address] 29373- 2848 Jan, [place] [address] 04596- 3345 Jan, [facility] [address] 67034 -9399 Jan, Chronic allergic rhinitis J30.9 [facility] [id number] [place] [address] 83870- 5043 Dec, Paranoid schizophrenia F20.0 ; Primary insomnia F51.01 and Schizoaffective disorder, depressive type F25.1 [place] [id number] [place] [address] 49625- 3707 Dec, Chronic pain syndrome G89.4 ; Cervicalgia of occipito- atlanto-axial region M54.2 ; Menopausal syndrome (hot flashes) N95.1 and Encounter for immunization Z23 [place] [address] 96697- 8417 Dec, [place] [id number] [place] [address] 73300- 1380 Dec, [place] [address] 53941- 7284 Dec, Paranoid schizophrenia F20.0 [place] [id number] [place] [address] 99236- 1609 Dec, Schizoaffective disorder, depressive type F25.1 [place] [id number] [place] [address] 26792- 8491 Nov, Hypothyroidism, unspecified type E03.9 [facility] [id number] [place] [address] 48311 -0474 Nov, Acute seasonal allergic rhinitis due to other allergen J30.89 [facility] [id number] [place] [address] 41077- 5602 Nov, [facility] [id number] [place] [address] 41068- 3882 Nov, Hypothyroidism, unspecified type E03.9 and Other elevated white blood cell (WBC) count D72.828 [place] [id number] [place] [address] 49994- 4863 Nov, Schizoaffective disorder, depressive type F25.1 [place] [address] [place] [address] 85828- 5822 Nov, Paranoid schizophrenia F20.0 [facility] [address] [place] [address] 69461- 7409 Nov, Type 2 diabetes mellitus without complication, without long- term current use of insulin E11.9 ; Morbid obesity due to excess calories E66.01 and Chronic pain syndrome G89.4 [place] [id number] [place] [address] 41954- 0622 Oct, Paranoid schizophrenia F20.0 [place] [id number] [place] [address] 57787- 4821 Oct, [place] [id number] [place] [address] 52582- 5712 Oct, Schizoaffective disorder, depressive type F25.1 [place] [address] [place] [address] 14797- 7333 Oct, Hypothyroidism, unspecified type E03.9 and Other elevated white blood cell (WBC) count D72.828 [place] [id number] [place] [address] 97290- 4714 Oct, Morbid obesity due to excess calories E66.01 ; Chronic obstructive pulmonary disease, unspecified COPD type J44.9 ; History of lupus Z87.39 ; Hypothyroidism, unspecified type E03.9 ; Gastroesophageal reflux disease without esophagitis K21.9 ; Primary insomnia F51.01 and Chronic pain syndrome G89.4 [place] [address] [place] [address] 64000- 6716 Sep, [place] [id number] [place] [address] 27806- 4772 Sep, [place] [id number] [place] [address] 42798- 7911 Sep, [place] [address] [address]- 0151 Sep, Paranoid schizophrenia F20.0 [facility] [address] [place] [address] 27121- 4486 Sep, [facility] [address] [place] [address] 99502- 7589 Sep, Paranoid schizophrenia F20.0 [facility] [id number] [place] [address] 09636- 5000 Sep, [facility] [id number] [place] [address] 87956- 2434 August, Paranoid schizophrenia F20.0 [facility] [id number] [place] [address] 08917- 7045 Jul, [facility] [id number] [place] [address] 48355- 4781 Jul, Type 2 diabetes mellitus without complication, without long- term current use of insulin E11.9 ; Morbid obesity due to excess calories E66.01 ; Depression with anxiety F41.8 ; Hypothyroidism, unspecified type E03.9 ; Seasonal allergic rhinitis due to other allergic trigger J30.89 ; Pain, dental K08.89 and Gastroesophageal reflux disease without esophagitis K21.9 [facility] [address] [id number] Jul, Dental examination Z01.20 [facility] [address] [address]- 3818 07 Jul, 2016 Paranoid schizophrenia F20.0 [facility] [address] [address]- 0657 13 Jun, 2016 Paranoid schizophrenia F20.0 and Depression with anxiety F41.8 [facility] [address] [address]- 9464 10 Jun, 2016 Paranoid schizophrenia F20.0 and Depression with anxiety F41.8 [facility] [id number] [place] [address] 22124- 6599 Jun, [place] [id number] [place] [address] 43120- 9846 Jun, [facility] [place] [id number] [place] [address] 65581 -4308 Jun, Seasonal allergic rhinitis due to other allergic trigger J30.89 [facility] [address] 91761 -1206 May, Sore throat J02.9 ; Other viral agents as the cause of diseases classified elsewhere B97.89 and Acute upper respiratory infection, unspecified J06.[address] 80444- 6785 08 May, 2016 Paranoid schizophrenia F20.0 and Depression with anxiety F41.[address] 89396- 3715 Apr, Other seasonal allergic rhinitis J30.2 [place] [id number] [place] [address] 44992- 3650 Apr, Paranoid schizophrenia F20.0 and Depression with anxiety F41.8 [facility] [place] [id number] [place] [address] 32978 -8461 Apr, Bronchitis J40 and Sore throat J02.9 [place] [id number] [place] [address] 61215- 2393 Apr, Type 2 diabetes mellitus without complication, without long- term current use of insulin E11.9 [facility] [address] [place] [id number] [place] [address] 78638 -9204 Apr, Bronchitis J40 [place] [id number] [place] [address] 97552- 4739 Apr, [place] [id number] [place] [address] 80724- 0230 Apr, [id number] [place] [address] 33942- 9675 Mar, Type 2 diabetes mellitus without complication, [...] R60.9 and Other seasonal allergic rhinitis J30.2 [place] [address] 75190- 8683 Mar, Paranoid schizophrenia F20.0 and Depression with anxiety F41.8 [place] [id number] [place] [address] 55258- 7611 Feb, [place] [address] 75899- 0947 Feb, [place] [id number] [place] [address] 22530- 3285 Feb, [place] [address] 96886- 5191 Feb, [place] [id number] [place] [address] 86623- 1799 Feb, Type 2 diabetes mellitus without complication, without long- term current use of insulin E11.9 ; ARIAS on CPAP G47.33 and Preoperative evaluation to rule out surgical contraindication Z01.818 [place] [id number] [place] [address] 13453- 9994 Feb, Paranoid schizophrenia F20.0 and Depression with anxiety F41.8 [place] [id number] [place] [address] 91785- 4304 Jan, [place] [id number] [place] [address] 91489- 5490 Jan, Paranoid schizophrenia F20.0 and Depression with anxiety F41.8 [facility] [address] [facility] [id number] [place] [address]- 6589 17 Jan, 2016 [facility] [address] [facility] [id number] [place] [address] 21368- 6566 14 Jan, 2016 Muscle strain T14.8 [facility] [address] [facility] [id number], [place] [address]- 3455 Jan, Paranoid schizophrenia F20.0 [facility] [address] [facility] [id number], [place] [address]- 7895 Jan, [facility] [address] [facility] [id number] [place] [address] 04741- 9907 Jan, Paranoid schizophrenia F20.0 and Depression with anxiety F41.8 [facility] [address] [place] [id number] [address]- 4935 Jan, [facility] [address] [facility] [id number] [place] [address] 34076- 6497 Jan, [facility] [address] [facility] [id number], [place] [address]- 1852 28 Dec, 2015 [facility] [address] [facility] [id number] [place] [address] 41840- 0113 23 Dec, 2015 Paranoid schizophrenia F20.0 [facility] [address] [facility] [id number], [place] [address]- 0628 16 Dec, 2015 Paranoid schizophrenia F20.0 and Depression with anxiety F41.8 [facility] [address] [facility] [id number][place] [address]- 8536 Nov, [facility] [address] [facility] [id number] [address]- 1231 24 Nov, 2015 Paranoid schizophrenia F20.0 [facility] [address] [facility] [id number], [place] [address]- 4870 Nov, Paranoid schizophrenia F20.0 and Depression with anxiety F41.8 [place] [address] [place] [address] 24348- 2720 Nov, Type 2 diabetes mellitus without complication, without long- term current use of insulin E11.9 ; Paranoid schizophrenia F20.0 ; Chronic obstructive pulmonary disease, unspecified COPD type J44.9 ; Morbid obesity due to excess calories E66.01 and Parkinsonian tremor G20 [place] [id number] [place] [address] 47212- 7980 Nov, [place] [id number] [place] [address] 95675- 3289 Oct, Paranoid schizophrenia F20.0 [place] [address] 50310- 9467 Oct, Paranoid schizophrenia F20.0 [place] [id number] [place] [address] 97563- 7870 Oct, Paranoid schizophrenia F20.0 and Depression with anxiety F41.8 [place] [id number] [place] [address] 58828- 1871 Oct, [place] [id number] [place] [address] 95653- 2532 Oct, Paranoid schizophrenia F20.0 and Depression with anxiety F41.8 [place] [id number] [place] [address] 82236- 0718 Oct, Nasal sore J34.89 [place] [id number] [place] [address] 15577- 9601 Oct, Type 2 diabetes mellitus without complication, without long- term current use of insulin E11.9 ; Depression with anxiety F41.8 ; Hypothyroidism, unspecified type E03.9 and History of lupus Z87.39 [place] [address] [place] [address] 40772- 8513 Oct, [place] [id number] [place] [address] 88574- 5990 01 Raji, 2016 Type 2 diabetes mellitus [...] edema R60.9 and History of lupus Z87.39 [facility] [id number] [place] [address] 08157- 1430 Feb, [facility] [address] 330565- 1495 Jan, [facility] [id number] [place] [address] 55197429- 4411 Jan, [facility] [id number] [place] [address] 04441- 0225 Jan, [facility] [id number] [place] [address] 42085- 8436 Dec, [facility] [id number] [place] [address] [id number]- 1111 Nov, [facility] [id number] [place] [address] 13106- 1296 Nov, [facility] [id number] [place] [address] [id number]- 2371 Oct, [facility] [id number] [place] [address] 28427612- 7788 Oct, [facility] [id number] [place] [address] 01377- 2736 Oct, [facility] [id number] [place] [address] 288423- 5323 Sep, Allergic rhinitis 477.9 [facility] [id number] [place] [address]- 8368 11 Sep, 2014 Rhinitis, allergic 477.9 [facility] [address] [id number] [place] [address]- 1683 10 Sep, 2014 Rhinitis, allergic 477.9 [facility] [address] [facility] [id number] [place] [address]- 6085 Sep, [facility] [address] [facility] [id number] [place] [address]- 0414 August, [facility] [address] [id number] [place] [address]- 6818 August, [facility] [address] [facility] [id number] [place] [address]- 4791 August, [facility] [address] [place] [id number] [place] [address]- 5079 28 Jul, 2014 [facility] [address] [place] [id number] [place] [address] 14 Jul, 2014 [facility] [address] [facility] [id number] [place] [address] 13 Jul, 2014 [facility] [address] [facility] [id number], [place] [address] 16 Jun, 2014 [facility] [place] [facility] [address] [facility] [id number], [place] [address] 16 Jun, 2014 [facility] [place] [facility] [address] [facility] [id number][place] [address] Jun, [facility] [place] [facility] [address] [facility] [id number] [place] [address] Jun, [facility] [place] [facility] [address] [facility] [id number] [place] [address] Jun, [facility] [place] [facility] [address] [facility] [id number] [place] [address] Jun, [facility] [place] [facility] [address] [facility] [id number] [place] [address] Jun, 2014 [facility] [place] [facility] [address] [id number] [place] [address] Jun, 2014 [facility] [place] [facility] [address] [id number] [place] [address] May, 2014 [facility] [place] [facility] [address] [id number] [place] [address] May, 2014 [facility] [place] [facility] [address] [id number] [place] [address] May, 2014 [facility] [place] [facility] [address] [id number] [place] [address] May, 2014 [facility] [place] [facility] [address] [id number] [place] [address] Apr, [facility] [place] [facility] [address] [id number] [place] [address] Mar, [facility] [place] [facility] [address] [id number] [place] [address] Mar, [facility] [place] [facility] [address] [id number] [place] [address] 0469 Mar, [facility] [place] [facility] [address] [facility] [id number] [place] [address] Mar, [facility] [place] [facility] [address] [id number] [place] [address] Mar, [facility] [place] [facility] [address] [id number] [place] [address] Mar, [facility] [place] [facility] [address] [id number] [place] [address] 05 Mar, 2014 [facility] [place] [facility] [address] [id number] [place] [address] Mar, [facility] [place] [facility] [address] [id number] [place] [address] Mar, [facility] [place] [facility] [address] [id number] [place] [address] Feb, [facility] [place] [facility] [address] [id number] [place] [address] Feb, [facility] [place] [facility] [address] [id number] [place] [address] 9[address] Feb, [facility] [place] [facility] [address] [id number] [place] [address]- [address] Feb, [facility] [place] [facility] [address] [id number] [place] [address] Feb, [facility] [place] [facility] [address] [id number] [place] [address]- 4698 Feb, [facility] [place] [facility] [address] [id number] [place] [address]- 5562 Feb, [facility] [place] [facility] [address] [id number] [place] [address] Feb, [facility] [place] [facility] [address] [id number] [place] [address] 27[address] Jan, [facility] [place] [facility] [address] [id number] [place] [address] 66[address] Jan, [facility] [place] [facility] [address] [id number] [place] [address]- 269[address] 16 Jan, 2014 [facility] [place] [facility] [address] [id number], [place] [address] 16 Jan, 2014 [facility] [place] [facility] [address] [id number] [place] [address]- 5183 15 Jan, 2014 [facility] [place] [facility] [address] [id number] [place] [address]- 2097 15 Jan, 2014 [facility] [place] [facility] [address] [id number], [place] [address] 14 Jan, 2014 [facility] [place] [facility] [address] [id number], [place] [address]- [address] 14 Jan, 2014 [facility] [place] [facility] [address] [id number] [place] [address]- 8788 14 Jan, 2014 [facility] [place] [facility] [address] [id number] [place] [address] 9178 14 Jan, 2014 [facility] [place] [facility] [address] [id number] [place] [address]- 1126 18 Dec, 2013 [facility] [place] [facility] [address] [id number] [place] [address] 2826 18 Dec, 2013 [facility] [place] [facility] [address] [id number] [place] [address]- 6986 Dec, [facility] [place] [facility] [address] [id number] [place] [address] 8984 Dec, [facility] [place] [facility] [address] [id number] [place] [address]42 Nov, [facility] [place] [facility] [address] [id number] [place] [address] Nov, [facility] [place] [facility] [address] [id number] [place] [address]- 0971 Nov, [facility] [place] [facility] [address] [id number] [place] [address] 1451 Nov, [facility] [place] [facility] [address] [id number] [place] [address] 2418 Nov, [facility] [place] [facility] [address] [id number] [place] [address] 9304 Oct, [facility] [place] [facility] [address] [id number] [place] [address] 6867 Oct, [facility] [place] [facility] [address] [id number] [place] [address] 4739 Oct, [facility] [place] [facility] [address] [id number] [place] [address] 8972 Oct, [facility] [place] [facility] [address] [id number] [place] [address] 6915 Sep, [facility] [place] [facility] [address] [id number] [place] [address]- 7287 Sep, [facility] [place] [facility] [address] [id number] [place] [address] 2062 Sep, [facility] [place] [facility] [address] [id number] [place] [address]- [address]65 Sep, [facility] [place] [facility] [address] [id number] [place] [address]- [address] Sep, [facility] [place] [facility] [address] [id number] [place] [address]- 2688 Sep, [facility] [place] [facility] [address] [id number] [place] [address]- 7707 Sep, [facility] [place] [facility] [address] [id number] [place] [address]- 3494 Sep, [facility] [place] [facility] [address] [id number] [place] [address]- 1488 August, [facility] [place] [facility] [address] [id number] [place] [address]- 0047 August, [facility] [place] [facility] [address] [id number] [place] [address]- 8277 August, [facility] [place] [facility] [address] [id number] [place] [address] 2108 August, [facility] [place] [facility] [address] [id number] [place] [address]- 7434 August, [facility] [place] [facility] [address] [id number] [place] [address]- 3886 August, [facility] [place] [facility] [address] [id number] [place] [address]- 1448 August, [facility] [place] [facility] [address] [id number] [place] [address] 6537 Jul, [facility] [place] [facility] [address] [id number] [place] [address] 8250 Jul, [facility] [place] [facility] [address] [id number] [place] [address] 5617 Jul, [facility] [place] [facility] [address] [id number] [place] [address]- 9369 Jul, [facility] [place] [facility] [address] [id number] [place] [address]- 0152 Jul, [facility] [place] [facility] [address] [id number] [place] [address]- 5183 Jul, [facility] [place] [facility] [address] [id number] [place] [address]- 6762 Jul, [facility] [place] [facility] [address] [id number] [place] [address]- 3610 Jul, [facility] [place] [facility] [address] [id number] [place] [address]- 9003 Jul, [facility] [place] [facility] [address] [id number] [place] [address]- 3548 Jul, [facility] [place] [facility] [address] [id number] [place] [address]- 6166 Jul, [facility] [place] [facility] [address] [id number] [place] [address]- 6231 Jul, [facility] [place] [facility] [address] [id number] [place] [address]- 3314 Jun, [facility] [place] [facility] [address] [id number] [place] [address]- 3626 Jun, [facility] [place] [facility] [address] [id number] [place] [address]- 5782 Jun, [facility] [place] [facility] [address] [id number] [place] [address]- 9317 Jun, [facility] [place] [facility] [address] [id number] [place] [address]- 7043 Jun, [facility] [place] [facility] [address] [id number] [place] [address]- 1895 May, 2013 [facility] [place] [facility] [address] [id number] [place] [address]- 5546 May, [facility] [place] [facility] [address] [id number] [place] [address]- 9426 May, 2013 [facility] [place] [facility] [address] [id number] [place] [address]- 0446 May, [facility] [place] [facility] [address] [id number] [place] [address]- 4776 May, [facility] [place] [facility] [address] [facility] [id number] [place] [address]- 9506 May, [facility] [place] [facility] [address] [facility] [id number] [place] [address]- 1863 May, [facility] [place] [facility] [address] [facility] [id number] [place] [address]- 7724 May, [facility] [place] [facility] [address] [facility] [id number] [place] [address]- 1704 Mar, [facility] [place] [facility] [address] [facility] [id number] [place] [address]- 5287 Mar, [facility] [place] [facility] [address] [facility] [id number] [place] [address]- 3326 Mar, [facility] [place] [facility] [address] [id number] [place] [address]- 2526 Mar, [facility] [place] [facility] [address] [id number] [place] [address]- 1886 Mar, [facility] [place] [facility] [address] [facility] [id number] [place] [address]- 2911 Mar, [facility] [place] [facility] [address] [facility] [id number] [place] [address]- 0598 Feb, [facility] [place] [facility] [address] [id number] [place] [address]- 3002 15 Feb, 2013 [facility] [place] [facility] [address] [id number] [place] [address]- 9580 Jan, [facility] [place] [facility] [address] [id number] [place] [address]- 9407 Jan, [facility] [place] [facility] [address] [id number] [place] [address]- 3977 Jan, [facility] [place] [facility] [address] [id number] [place] [address]- 4284 Jan, [facility] [place] [facility] [address] [id number] [place] [address]- 4866 Jan, [facility] [place] [facility] [address] [id number] [place] [address]- 7298 Jan, [facility] [place] [facility] [address] [id number], [place] [address]- 2785 Jan, [facility] [place] [facility] [address] [id number] [place] [address]- 8205 Jan, [facility] [place] [facility] [address] [id number], [place] [address]- 9215 Jan, [facility] [place] [facility] [address] [id number], [place] [address]- 8324 Jan, [facility] [place] [facility] [address] [id number], [place] [address]- 6208 Dec, [facility] [place] [facility] [address] [id number] [place] [address]- 2156 Nov, [facility] [place] [facility] [address] [id number], [place] [address]- 2165 Nov, [facility] [place] [facility] [address] [id number] [place] [address]- 0882 Nov, [facility] [place] [facility] [id number], [place] [address] 8819 Oct, [facility] [id number] [address] Oct, [facility] [id number], [place] [address]- 0838 August, [facility] [id number], [place] [address]- 0132 Apr, [facility] [address] [id number], [place] [address]- 2859 Apr, [facility] [id number] [place] [address]- 3024 Feb, [facility] [id number] [place] [address]- 5797 Feb, [facility] [id number] [place] [address]- 9363 Dec, [facility] [id number], [place] [address]- 8785 Dec, [facility] [id number], [place] [address]- 2993 Oct, [facility] [id number], [place] [address]- 4674 Oct, [facility] [id number], [place] [address]- 6540 Oct, [facility] [id number], [place] [address]- 6025 Jul, IMMUNIZATIONS No Known Immunizations SOCIAL HISTORY [...] for psychosis/mental illness , last one in [facility] 4 years ago
--- OUTSIDE RECORDS SUMMARY | 2018-09-02 14:01 | XMS REPORT ---
Author Author EDWINUMESH CASIANO [facility] Address [address] [place] [address] Care Team Providers Care Bed Manager Name Role Phone UMESH PINEDA Unavailable PROBLEMS Type Condition ICD9-CM Code DFK37-DW Code Onset Dates Condition Status SNOMED Code Problem Other seasonal allergic rhinitis J30.2 Active 222584567 Problem Gastroesophageal reflux disease, esophagitis presence not specified K21.9 Active 130128641 Problem Tobacco abuse Z72.0 Active 892928969 Problem Seasonal allergic rhinitis due to pollen J30.1 Active 19967291 Problem History of lupus Z87.39 Active 604839405 Problem COPD exacerbation J44.1 Active 926689398 Problem OAB (overactive bladder) N32.81 Active 912868615 Problem Morbid obesity due to excess calories E66.01 Active 297815564 Problem Dyslipidemia E78.5 Active 067321713 Problem Migraine without aura and without status migrainosus, not intractable G43.009 Active 161107606 Problem Hypothyroidism (acquired) E03.9 Active 236769775 Problem Essential hypertension I10 Active 13833187 Problem Type 2 diabetes mellitus without complication, without long-term current use of insulin E11.9 Active 954822545 Problem Gastroesophageal reflux disease without esophagitis K21.9 Active 299683126 Problem Chronic pain syndrome G89.4 Active 683348903 Problem Paranoid schizophrenia F20.0 Active 98899524 Problem Primary insomnia F51.01 Active 9547737 Problem DM neuro manif type II E11.49 Active 05856822 Problem Depression with anxiety F41.8 Active 655736171 Problem Seasonal allergic rhinitis due to other allergic trigger J30.89 Active 878828874 Problem Menopausal syndrome (hot flashes) N95.1 Active 448133378 Problem Chronic obstructive pulmonary disease, unspecified COPD type J44.9 Active 04974938 Problem Schizoaffective disorder, depressive type F25.1 Active 78959346 Problem Other allergic rhinitis J30.89 Active 310568127 ALLERGIES No Information ENCOUNTERS Encounter Location Date Diagnosis [facility] [address] [address] Nov, [facility] [address] [address] Jun, Seasonal allergic rhinitis due to pollen J30.1 and Hypothyroidism (acquired) E03.9 [facility] [address] [address] Jun, Shortness of breath at rest R06.02 ; COPD exacerbation J44.1 and BMI 45.0-49.9, adult Z68.42 [facility] [address] [address]- [address] Jun, [facility] [address] [address]- [address] Jun, Paranoid schizophrenia F20.0 ; Depression with anxiety F41.8 and BMI 45.0-49.9, adult Z68.42 [facility] [address] 00[address]- 49[address] 20 Jun, 2017 Schizoaffective disorder, depressive type F25.1 [facility] [address] [id number] 13 Jun, 2017 Dental caries K02.9 [facility] [address] [address]- [address] 12 Jun, 2017 Paranoid schizophrenia F20.0 [facility] [address] 96[address]- [address]759 May, Migraine without aura and without status migrainosus, not intractable G43.009 ; DM neuro manif type II E11.49 and Type 2 diabetes mellitus without complication, without long-term current use of insulin E11.9 [facility] [address] [address]- [address] May, Migraine without aura and without status migrainosus, not intractable G43.009 [place] [address] [place] [address] 58485- 2568 May, Depression with anxiety F41.8 [facility] [address] [place] [id number] [place] [address] [id number] May, [facility] [address] [address]- [address] May, [place] [address] 24[address]- 3715 May, [place] [address] 72754- 7898 May, Hypothyroidism (acquired) E03.9 [place] [address] [address]- 0719 May, Paranoid schizophrenia F20.0 [place] [address] 48587- 4502 May, Type 2 diabetes mellitus without complication, [...] N32.81 and Controlled substance agreement signed Z79.899 [place] [address] [place] [id number] [place] [address] 67857- 4899 May, Controlled substance agreement signed Z79.899 [place] [address] [place] [id number] [place] [address] 56534- 6043 Apr, [facility] [address] [id number] Apr, Dental examination Z01.20 [facility] [address] [place] [address] 56066- 6511 Apr, Paranoid schizophrenia F20.0 [facility] [address] [place] [id number] [place] [address] 62346- 3767 Apr, Hypertension, unspecified type I10 [facility] [address] [place] [id number] [place] [address] 57156- 0170 Apr, Paranoid schizophrenia F20.0 [facility] [address] [id number] [place] [address] 16477- 8375 Apr, [facility] [address] [place] [id number] [place] [address] 34322- 6864 Apr, Tobacco abuse Z72.0 [facility] [address] [place] [id number] [place] [address] 95230- 3099 Apr, [facility] [address] [id number] [place] [address] 45691- 9346 Mar, [facility] [id number] [place] [address] 18263- 1075 Mar, Paranoid schizophrenia F20.0 and BMI 45.0-49.9, adult Z68.42 [facility] [address] [id number] [place] [address] 39242- 1040 Mar, Schizoaffective disorder, depressive type F25.1 [facility] [address] [id number] [place] [address] 45715- 5745 14 Mar, 2017 [facility] [address] [address] [id number] [place] [address] 80993- 0728 Mar, Hypothyroidism, unspecified type E03.9 [facility] [address] [place] [address] 75565- 1122 Mar, Schizoaffective disorder, depressive type F25.1 [facility] [address] [id number] [place] [address] 45885 -9988 Feb, Gastroenteritis K52.9 and BMI 45.0-49.9, adult Z68.42 [place] [address] [place] [id number] [place] [address] 98578- 5883 Feb, [facility] [address] [place] [id number] [place] [address] 71783- 5959 Feb, [facility] [address] 95143- 0074 Feb, [facility] [address] 66777- 3875 Feb, [place] [address] 30531- 8247 Feb, Paranoid schizophrenia F20.0 [place] [address] 89546- 4492 Feb, Gastroesophageal reflux disease without esophagitis K21.9 ; Other seasonal allergic rhinitis J30.2 ; Other allergic rhinitis J30.89 ; Tobacco abuse Z72.0 and BMI 40.0-44.9, adult Z68.41 [place] [address] 43301- 4069 Feb, Onychomycosis B35.1 ; Callus of foot L84 and DM neuro manif type II E11.49 [place] [address] [place] [id number] [place] [address] 36966- 7360 Jan, Chronic allergic rhinitis J30.9 [place] [address] [place] [id number] [place] [address] 53350- 2977 Jan, [place] [address] 90645- 1767 Jan, Schizoaffective disorder, depressive type F25.1 [facility] [address] [place] [id number] [place] [address] 80878- 4385 Jan, [facility] [address] [id number] [place] [address] 00777 -8665 Jan, Sore throat J02.9 and Seasonal allergic rhinitis due to other allergic trigger J30.89 [facility] [id number] [place] [address] 13338- 5844 Jan, [facility] [address] [id number] [place] [address] 46496- 4559 Jan, [facility] [id number] [place] [address] 22782 -0689 Jan, Chronic allergic rhinitis J30.9 [facility] [id number] [place] [address] 48004- 8773 Dec, Paranoid schizophrenia F20.0 ; Primary insomnia F51.01 and Schizoaffective disorder, depressive type F25.1 [place] [address] [place] [id number] [place] [address] 10941- 0713 Dec, Chronic pain syndrome G89.4 ; Cervicalgia of occipito- atlanto-axial region M54.2 ; Menopausal syndrome (hot flashes) N95.1 and Encounter for immunization Z23 [facility] [address] [place] [id number] [place] [address] 14052- 5170 14 Dec, 2016 [facility] [id number] [place] [address] 66199- 4050 13 Dec, 2016 [facility] [address] [place] [id number] [place] [address] 96446- 2828 08 Dec, 2016 Paranoid schizophrenia F20.0 [facility] [address] [id number] [place] [address] 63955- 2198 Dec, Schizoaffective disorder, depressive type F25.1 [facility] [address] [place] [id number] [place] [address] 24263- 3117 Nov, Hypothyroidism, unspecified type E03.9 [facility] [address] [id number] [place] [address] 03520 -3052 Nov, Acute seasonal allergic rhinitis due to other allergen J30.89 [place] [address] [place] [id number] [place] [address] 97585- 2010 Nov, [place] [address] [place] [id number] [place] [address] 79942- 1879 Nov, Hypothyroidism, unspecified type E03.9 and Other elevated white blood cell (WBC) count D72.828 [place] [address] [place] [address] [place] [address] 11558- 2635 Nov, Schizoaffective disorder, depressive type F25.1 [place] [address] [place] [address] [place] [address] 44270- 4861 Nov, Paranoid schizophrenia F20.0 [place] [address] [place] [address] [place] [address] 19919- 7564 Nov, Type 2 diabetes mellitus without complication, without long- term current use of insulin E11.9 ; Morbid obesity due to excess calories E66.01 and Chronic pain syndrome G89.4 [place] [address] [place] [address] [place] [address] 17420- 4396 Oct, Paranoid schizophrenia F20.0 [place] [address] [place] [id number] [place] [address] 72719- 1879 Oct, [place] [address] [place] [id number] [place] [address] 75727- 5063 Oct, Schizoaffective disorder, depressive type F25.1 [place] [address] [place] [address] [place] [address] 34842- 1958 Oct, Hypothyroidism, unspecified type E03.9 and Other elevated white blood cell (WBC) count D72.828 [place] [address] [place] [address] [place] [address] 25489- 1725 Oct, Morbid obesity due to excess calories E66.01 ; Chronic obstructive pulmonary disease, unspecified COPD type J44.9 ; History of lupus Z87.39 ; Hypothyroidism, unspecified type E03.9 ; Gastroesophageal reflux disease without esophagitis K21.9 ; Primary insomnia F51.01 and Chronic pain syndrome G89.4 [facility] [address] [place] [address] 71787- 2897 30 Sep, 2016 [facility] [address] [id number] [place] [address] 23034- 7726 Sep, [facility] [address] [place] [address] [place] [address] 19032- 9626 Sep, [facility] [address] [id number] [place] [address] 44950- 0724 Sep, Paranoid schizophrenia F20.0 [facility] [address] [place] [id number] [place] [address] 93580- 9110 Sep, [facility] [address] [address] [id number] [place] [address] 68550- 6307 Sep, Paranoid schizophrenia F20.0 [facility] [address] [id number] [place] [address] 94702- 7698 Sep, [facility] [address] [id number] [place] [address] 06643- 4143 August, Paranoid schizophrenia F20.0 [facility] [address] [id number] [place] [address] 66851- 4114 Jul, [facility] [address] [place] [address] 92161- 1374 Jul, Type 2 diabetes mellitus without complication, without long- term current use of insulin E11.9 ; Morbid obesity due to excess calories E66.01 ; Depression with anxiety F41.8 ; Hypothyroidism, unspecified type E03.9 ; Seasonal allergic rhinitis due to other allergic trigger J30.89 ; Pain, dental K08.89 and Gastroesophageal reflux disease without esophagitis K21.9 [facility] [address] [id number] Jul, Dental examination Z01.20 [facility] [address] [place] [id number] [place] [address] 11299- 3245 07 Jul, 2016 Paranoid schizophrenia F20.0 [place] [address] [place] [address] 68281- 8741 13 Jun, 2016 Paranoid schizophrenia F20.0 and Depression with anxiety F41.8 [place] [address] [place] [address] [place] [address] 17594- 6847 10 Jun, 2016 Paranoid schizophrenia F20.0 and Depression with anxiety F41.8 [place] [address] [place] [id number] [place] [address] 48181- 9292 09 Jun, 2016 [place] [address] [place] [id number] [place] [address] 41459- 9820 Jun, [facility] [place] [address] [place] [id number] [place] [address] 21276 -7521 Jun, Seasonal allergic rhinitis due to other allergic trigger J30.89 [facility] [place] [id number] [place] [address] 03014 -0859 May, Sore throat J02.9 ; Other viral agents as the cause of diseases classified elsewhere B97.89 and Acute upper respiratory infection, unspecified J06.9 [place] [address] [place] [address] [place] [address] 51190- 2956 08 May, 2016 Paranoid schizophrenia F20.0 and Depression with anxiety F41.8 [place] [address] [place] [id number] [place] [address] 42741- 5788 Apr, Other seasonal allergic rhinitis J30.2 [place] [address] [place] [address] [place] [address] 44411- 3911 Apr, Paranoid schizophrenia F20.0 and Depression with anxiety F41.[address] [facility] [place] [id number] [place] [address] 01026 -3562 Apr, Bronchitis J40 and Sore throat J02.9 [place] [address] [place] [address] [place] [address] 19459- 4731 Apr, Type 2 diabetes mellitus without complication, without long- term current use of insulin E11.[address] [facility] [address] [address] Apr, Bronchitis J40 [facility] [address] [place] [address] 04315- 7123 Apr, [facility] [address] [place] [id number] [place] [address] 07564- 7962 Apr, [facility] [address] [place] [address] [place] [address] 22404- 1576 Mar, Type 2 diabetes mellitus without complication, [...] R60.9 and Other seasonal allergic rhinitis J30.2 [place] [address] [place] [address] [place] [address] 51395- 3302 Mar, Paranoid schizophrenia F20.0 and Depression with anxiety F41.8 [facility] [address] [place] [address] 65369- 8712 30 Feb, 2016 [place] [address] [place] [address] 09058- 1752 Feb, [place] [address] [place] [id number] [place] [address] 01014- 0922 Feb, [place] [address] [place] [id number] [place] [address] 78043- 0771 Feb, [place] [address] [place] [address] [place] [address] 92170- 6698 Feb, Type 2 diabetes mellitus without complication, without long- term current use of insulin E11.9 ; ARIAS on CPAP G47.33 and Preoperative evaluation to rule out surgical contraindication Z01.818 [facility] [address] [facility] [id number], [place] [address]- 8543 Feb, Paranoid schizophrenia F20.0 and Depression with anxiety F41.8 [facility] [address] [facility] [id number] [place] [address]- 0102 Jan, [facility] [address] [facility] [id number] [place] [address]- 1348 Jan, Paranoid schizophrenia F20.0 and Depression with anxiety F41.8 [facility] [address] [facility] [id number] [place] [address]- 3045 17 Jan, 2016 [facility] [address] [facility] [id number] [place] [address], [place] [address]- 6155 14 Jan, 2016 Muscle strain T14.8 [facility] [address] [facility] [id number], [place] [address]- 6108 10 Jan, 2016 Paranoid schizophrenia F20.0 [facility] [address] [facility] [id number], [place] [address]- 7873 07 Jan, 2016 [facility] [address] [facility] [id number] [place] [address] 87832- 1532 05 Jan, 2016 Paranoid schizophrenia F20.0 and Depression with anxiety F41.8 [facility] [address] [facility] [id number], [place] [address]- 6773 Jan, [facility] [address] [facility] [id number], [place] [address]- 6613 Jan, [facility] [address] [facility] [id number], [place] [address]- 4941 28 Dec, 2015 [facility] [address] [facility] [id number], [place] [address]- 1730 23 Sep, 2015 Paranoid schizophrenia F20.0 [facility] [address] [facility] [id number], [place] [address]- 1503 16 Sep, 2015 Paranoid schizophrenia F20.0 and Depression with anxiety F41.8 [facility] [address] [place] [id number] [address]- 3746 Nov, [facility] [address] [place] [id number] [place] [address] 52880- 2900 Nov, Paranoid schizophrenia F20.0 [facility] [address] [place] [id number] [place] [address] 96451- 3959 Nov, Paranoid schizophrenia F20.0 and Depression with anxiety F41.8 [facility] [address] [place] [id number] [place] [address] 67246- 8250 Nov, Type 2 diabetes mellitus without complication, without long- term current use of insulin E11.9 ; Paranoid schizophrenia F20.0 ; Chronic obstructive pulmonary disease, unspecified COPD type J44.9 ; Morbid obesity due to excess calories E66.01 and Parkinsonian tremor G20 [facility] [address] [place] [address] [place] [address] 90461- 5911 Nov, [facility] [address] [place] [id number] [place] [address] 40518- 9471 Oct, Paranoid schizophrenia F20.0 [place] [address] [place] [id number] [place] [address] 04110- 9349 Oct, Paranoid schizophrenia F20.0 [facility] [address] [place] [id number] [place] [address] 84062- 0983 Oct, Paranoid schizophrenia F20.0 and Depression with anxiety F41.8 [facility] [address], [place] [address]- 1808 Oct, [facility] [address] [place] [id number] [place] [address] 89681- 2938 Oct, Paranoid schizophrenia F20.0 and Depression with anxiety F41.8 [facility] [address] [place] [address] 04823- 2414 06 Oct, 2015 Nasal sore J34.89 [facility] [address] [place] [id number] [place] [address] 07592- 9716 Oct, Type 2 diabetes mellitus without complication, without long- term current use of insulin E11.9 ; Depression with anxiety F41.8 ; Hypothyroidism, unspecified type E03.9 and History of lupus Z87.39 [facility] [address] [place] [address] [place] [address] 16631- 9555 Oct, [facility] [address] [place] [address] [place] [address] 719272- 4873 Oct, Type 2 diabetes mellitus without complication, [...] edema R60.9 and History of lupus Z87.39 [place] [address] [place] [id number] [place] [address] 43279- 6737 Feb, [facility] [address] [place] [id number] [place] [address] 68804- 0745 Jan, [facility] [address] [place] [id number] [place] [address] 36584- 3963 Jan, [facility] [address] [place] [id number] [place] [address] 00882- 5322 Jan, [facility] [address] [place] [id number] [place] [address] 618203- 0811 Dec, [facility] [address] [place] [id number] [place] [address] 101993- 6421 Nov, [facility] [address] [place] [id number] [place] [address] 565699- 7378 Nov, [facility] [address] [place] [id number] [place] [address] 53500- 8900 Oct, [facility] [address] [place] [id number] [place] [address]- 7657 Oct, [facility] [address] [facility] [id number] [place] [address]- 7659 Oct, [facility] [address] [place] [address]- 6029 Sep, Allergic rhinitis 477.9 [facility] [address] [place] [id number] [place] [address] 98846- 3997 Sep, Rhinitis, allergic 477.9 [facility] [address] [place] [id number] [place] [address], [place] [address]- 1309 Sep, Rhinitis, allergic 477.9 [facility] [address] [place] [id number] [place] [address]- 3354 Sep, [facility] [address] [place] [address]- 4439 August, [facility] [address] [place] [id number] [place] [address]- 6432 August, [facility] [address] [place] [address]- 1628 August, [facility] [address] [place] [address]- 3886 28 Jul, 2014 [facility] [place] [facility] [address] [place] [id number] [place] [address]- 3751 14 Jul, 2014 [facility] [place] [facility] [address] [place] [id number] [address]- 0333 13 Jul, 2014 [facility] [place] [facility] [id number]- 1868 16 Jun, 2014 [facility] [place] [facility] [address] [facility] [id number], [place] [address]- 5506 16 Jun, 2014 [facility] [place] [facility] [address], [place] [address]- 7105 Jun, [facility] [place] [facility] [address] [id number] [place] [address] Jun, [facility] [place] [facility] [address] [id number] [place] [address] Jun, [facility] [place] [facility] [address] [id number] [place] [address] Jun, [facility] [place] [facility] [address] [id number] [place] [address] Jun, [facility] [place] [facility] [address] [id number] [place] [address] Jun, [facility] [place] [facility] [address] [id number] [place] [address] May, [facility] [place] [facility] [address] [id number] [place] [address] May, 2014 [facility] [place] [facility] [address] [id number] [place] [address] May, [facility] [place] [facility] [address] [id number] [place] [address] May, [facility] [place] [facility] [address] [id number] [place] [address] Apr, [facility] [place] [facility] [address] [id number] [place] [address] Mar, [facility] [place] [facility] [address] [id number] [place] [address] Mar, [facility] [place] [facility] [address] [id number] [place] [address] Mar, [facility] [place] [facility] [address] [id number] [place] Mar, [facility] [place] [facility] [address] [id number] [place] [address] Mar, [facility] [place] [facility] [address] [id number] [place] [address] Mar, [facility] [place] [facility] [address] [id number] [place] [address] Mar, [facility] [place] [facility] [address] [id number] [place] [address] Mar, [facility] [place] [facility] [address] [id number] [place] [address] Mar, [facility] [place] [facility] [address] [id number] [place] [address] 4[address] Feb, [facility] [place] [facility] [address] [id number] [place] [address] Feb, [facility] [place] [facility] [address] [id number] [place] [address] 87[address] Feb, [facility] [place] [facility] [address] [id number] [place] [address]90 Feb, [facility] [place] [facility] [address] [id number] [place] [address] Feb, [facility] [place] [facility] [address] [id number] [place] [address] Feb, [facility] [place] [facility] [address] [id number] [place] [address] 9223 Feb, [facility] [place] [facility] [address] [id number] [place] [address] 3985 Feb, [facility] [place] [facility] [address] [id number] [place] [address] 1834 Jan, [facility] [place] [facility] [address] [id number] [place] [address] Jan, [facility] [place] [facility] [address] [id number] [place] [address] Jan, [facility] [place] [facility] [address] [id number] [place] [address] Jan, [facility] [place] [facility] [address] [id number] [place] [address]- [address] 15 Jan, 2014 [facility] [place] [facility] [address] [id number] [place] [address]- 5545 15 Jan, 2014 [facility] [place] [facility] [address] [id number] [place] [address] 6712 14 Jan, 2014 [facility] [place] [facility] [address] [id number] [place] [address]- 8705 14 Jan, 2014 [facility] [place] [facility] [address] [id number] [place] [address]- [address]223 14 Jan, 2014 [facility] [place] [facility] [address] [id number] [place] [address]- 4482 14 Jan, 2014 [facility] [place] [facility] [address] [id number] [place] [address]- [address] 18 Dec, 2013 [facility] [place] [facility] [address] [id number] [place] [address]- 2869 18 Dec, 2013 [facility] [place] [facility] [address] [id number] [place] [address]- 0763 10 Dec, 2013 [facility] [place] [facility] [address] [id number] [place] [address]- 6185 10 Dec, 2013 [facility] [place] [facility] [address] [id number] [place] [address]- 4290 Nov, [facility] [place] [facility] [address] [id number], [place] [address] Nov, [facility] [place] [facility] [address] [id number] [place] [address]- [address] Nov, [facility] [place] [facility] [address] [id number] [place] [address]- 0877 Nov, [facility] [place] [facility] [address] [id number], [place] [address] Nov, [facility] [place] [facility] [address] [id number], [place] [address] 9660 Oct, [facility] [place] [facility] [address] [id number] [place] [address]- 9204 Oct, [facility] [place] [facility] [address] [id number] [place] [address]- 1705 Oct, [facility] [place] [facility] [address] [id number] [place] [address]- 3562 Oct, [facility] [place] [facility] [address] [id number] [place] [address]- 7810 Sep, [facility] [place] [facility] [address] [id number] [place] [address]- 5591 Sep, [facility] [place] [facility] [address] [id number] [place] [address] 7313 Sep, [facility] [place] [facility] [address] [id number] [place] [address]- 4888 Sep, [facility] [place] [facility] [address] [id number] [place] [address] 0109 Sep, [facility] [place] [facility] [address] [id number] [place] [address]- 2255 Sep, [facility] [place] [facility] [address] [id number] [place] [address]- [address]782 Sep, [facility] [place] [facility] [address] [id number] [place] [address]- 8[address] Sep, [facility] [place] [facility] [address] [id number] [place] [address]- 8483 August, [facility] [place] [facility] [address] [id number] [place] [address]- 2741 August, [facility] [place] [facility] [address] [id number] [place] [address]- 3752 August, [facility] [place] [facility] [address] [id number] [place] [address]- 4898 August, [facility] [place] [facility] [address] [id number] [place] [address]- 7691 August, [facility] [place] [facility] [address] [id number] [place] [address]- 6868 August, [facility] [place] [facility] [address] [id number] [place] [address]- 6682 August, [facility] [place] [facility] [address] [id number] [place] [address]- 9676 Jul, [facility] [place] [facility] [address] [id number] [place] [address]- 4[address] Jul, [facility] [place] [facility] [address] [id number] [place] [address]- 1897 Jul, [facility] [place] [facility] [address] [id number] [place] [address]- 5560 Jul, [facility] [place] [facility] [address] [id number] [place] [address]- 8012 Jul, [facility] [place] [facility] [address] [id number] [place] [address]- 7118 Jul, [facility] [place] [facility] [address] [id number] [place] [address]- 1486 Jul, [facility] [place] [facility] [address] [id number] [place] [address]- 9360 Jul, [facility] [place] [facility] [address] [id number] [place] [address]- 1157 Jul, [facility] [place] [facility] [address] [id number] [place] [address]- 8517 Jul, [facility] [place] [facility] [address] [id number] [place] [address]- 5598 Jul, [facility] [place] [facility] [address] [id number] [place] [address]- 1402 Jul, [facility] [place] [facility] [address] [id number] [place] [address]- 0645 Jun, [facility] [place] [facility] [address] [id number] [place] [address]- 1846 Jun, [facility] [place] [facility] [address] [id number] [place] [address]- 5652 Jun, [facility] [place] [facility] [address] [facility] [id number] [place] [address]- 8124 Jun, [facility] [place] [facility] [address] [id number] [place] [address]- 8678 Jun, [facility] [place] [facility] [address] [id number] [place] [address]- 9906 May, [facility] [place] [facility] [address] [id number] [place] [address]- 8256 May, [facility] [place] [facility] [address] [facility] [id number] [place] [address]- 6680 May, [facility] [place] [facility] [address] [id number] [place] [address]- 6224 May, [facility] [place] [facility] [address] [id number] [place] [address]- 4440 May, [facility] [place] [facility] [address] [facility] [id number] [place] [address]- 2436 May, [facility] [place] [facility] [address] [facility] [id number] [place] [address]- 8993 May, [facility] [place] [facility] [address] [facility] [id number] [place] [address]- 6260 May, [facility] [place] [facility] [address] [facility] [id number] [place] [address]- 3458 Mar, [facility] [place] [facility] [address] [facility] [id number] [place] [address]- 3327 Mar, [facility] [place] [facility] [address] [facility] [id number] [place] [address]- 4355 Mar, [facility] [place] [facility] [address] [id number] [place] [address]- 8858 Mar, [facility] [place] [facility] [address] [id number] [place] [address]- 1879 Mar, [facility] [place] [facility] [address] [id number] [place] [address]- 1722 Mar, [facility] [place] [facility] [address] [id number] [place] [address]- 7692 Feb, [facility] [place] [facility] [address] [id number] [place] [address]- 2340 Feb, [facility] [place] [facility] [address] [id number] [place] [address]- 1747 Jan, [facility] [place] [facility] [address] [id number] [place] [address]- 8023 Jan, [facility] [place] [facility] [address] [id number] [place] [address]- 2228 Jan, [facility] [place] [facility] [address] [id number] [place] [address]- 8388 Jan, [facility] [place] [facility] [address] [id number] [place] [address]- 2824 Jan, [facility] [place] [facility] [address] [id number] [place] [address]- 9683 Jan, [facility] [place] [facility] [address] [id number] [place] [address]- 7117 Jan, [facility] [place] [facility] [address] [id number] [place] [address] Jan, [facility] [place] [facility] [address] [id number] [place] [address]- 6626 Jan, [facility] [place] [facility] [address] [id number] [place] [address]- 8805 Jan, [facility] [place] [facility] [address] [id number] [place] [address]- 6473 Dec, [facility] [place] [facility] [address] [id number] [place] [address]- 5194 Nov, [facility] [place] [facility] [address] [id number] [place] [address]- 2947 Nov, [facility] [place] [facility] [address] [id number] [place] [address]- 7072 Nov, [facility] [place] [facility] [address] [id number] [place] [address]- 1152 Oct, [facility] [place] [facility] [address] [id number] [place] [address]- 7212 Oct, [facility] [place] [facility] [address] [id number] [place] [address]- 5073 August, [facility] [place] [facility] [address] [id number] [place] [address]- 1964 Apr, [facility] [place] [facility] [address] [id number] [place] [address]- 5170 Apr, [facility] [place] [facility] [address] [id number] [place] [address]- 5056 Feb, [facility] [place] [facility] [address] [id number] [place] [address]- 4524 Feb, [facility] [place] [facility] [address] [id number] [place] [address]- 6635 Dec, [facility] [place] [facility] [address] [id number] [place] [address]- 5354 Dec, [facility] [place] [facility] [address] [id number] [place] [address]- 8889 Oct, [facility] [place] [facility] [address] [id number] [place] [address]- 0523 Oct, [facility] [place] [facility] [address] [id number] [place] [address]- 9154 Oct, [facility] [place] [facility] [address] [id number] [place] [address]- 6309 Jul, IMMUNIZATIONS No Known Immunizations SOCIAL HISTORY Never Assessed REASON FOR VISIT medication PLAN OF CARE VITAL SIGNS MEDICATIONS Medication Instructions Dosage Frequency Start Date End Date Duration Status Loxapine Succinate 25 MG Orally 4 times a day PRN 1 capsule Active RESULTS No Results PROCEDURES No Known [...] illness , last one in [facility] 4 years ago
--- OUTSIDE RECORDS SUMMARY | 2018-09-02 14:02 | XMS REPORT ---
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 Name Role Phone RONNI [place] Unavailable PROBLEMS Type Condition ICD9-CM Code PYJ70-DO Code Onset Dates Condition Status SNOMED Code Problem Other seasonal allergic rhinitis J30.2 Active 328984456 Problem Gastroesophageal reflux disease, esophagitis presence not specified K21.9 Active 171545453 Problem Tobacco abuse Z72.0 Active 658272547 Problem Seasonal allergic rhinitis due to pollen J30.1 Active 44683625 Problem History of lupus Z87.39 Active 777383738 Problem COPD exacerbation J44.1 Active 797570490 Problem OAB (overactive bladder) N32.81 Active 777294031 Problem Morbid obesity due to excess calories E66.01 Active 979830581 Problem Dyslipidemia E78.5 Active 906001573 Problem Migraine without aura and without status migrainosus, not intractable G43.009 Active 446998497 Problem Hypothyroidism (acquired) E03.9 Active 207199839 Problem Essential hypertension I10 Active 61706672 Problem Type 2 diabetes mellitus without complication, without long-term current use of insulin E11.9 Active 998690355 Problem Gastroesophageal reflux disease without esophagitis K21.9 Active 738049794 Problem Chronic pain syndrome G89.4 Active 019995081 Problem Paranoid schizophrenia F20.0 Active 79999747 Problem Primary insomnia F51.01 Active 6257553 Problem DM neuro manif type II E11.49 Active 83723952 Problem Depression with anxiety F41.8 Active 139555472 Problem Seasonal allergic rhinitis due to other allergic trigger J30.89 Active 246632782 Problem Menopausal syndrome (hot flashes) N95.1 Active 441973411 Problem Chronic obstructive pulmonary disease, unspecified COPD type J44.9 Active 86648332 Problem Schizoaffective disorder, depressive type F25.1 Active 23310980 Problem Other allergic rhinitis J30.89 Active 800050584 ALLERGIES Substance Reaction Event Type Date Status Sulfamethoxazole-Trimethoprim Unknown Drug Allergy Feb, Active Penicillin V Potassium Unknown Drug Allergy Feb, Active ENCOUNTERS Encounter Location Date Diagnosis [facility] [id number] [place] [address] 01615- 3092 Nov, [facility] [id number] [place] [address] 62278- 3239 Sep, [facility] [id number] [place] [address] 67404- 8636 Sep, [facility] [id number] [place] [address] 51665- 0154 August, Schizoaffective disorder, depressive type F25.1 [facility] [id number] [place] [address] 42293- 8383 August, [facility] [address] 62344- 6465 August, [facility] [id number] [place] [address] 89853- 4118 August, [facility] [id number] [place] [address] 63178- 3639 August, Paranoid schizophrenia F20.0 [facility] [id number] [place] [address] 28591- 7024 August, History of lupus Z87.39 and Chronic pain syndrome G89.4 [facility] [id number] [place] [address] 32648- 2401 August, [facility] [id number] [place] [address] 69742 -1102 August, Seasonal allergic rhinitis, unspecified trigger J30.2 and BMI 45.0-49.9, adult Z68.42 [facility] [id number] [place] [address] 34535- 1106 Jul, Schizoaffective disorder, depressive type F25.1 [facility] [id number] [place] [address] 14505- 6784 Jul, [facility] [address] 12863- 4179 Jul, Hypothyroidism (acquired) E03.9 [facility] [address] 46637- 7808 11 Jul, 2017 Chronic obstructive pulmonary disease, unspecified COPD type J44.9 and Type 2 diabetes mellitus without complication, without long-term current use of insulin E11.9 [facility] [id number] [place] [address] 56247- 7209 Jul, Paranoid schizophrenia F20.0 [place] [address] 77110- 3570 Jun, Hypothyroidism (acquired) E03.9 and Seasonal allergic rhinitis due to pollen J30.1 [facility] [id number] [place] [address] 28277 -5383 Jun, Shortness of breath at rest R06.02 ; COPD exacerbation J44.1 and BMI 45.0-49.9, adult Z68.42 [place] [address] 45872- 5439 Jun, [facility] [id number] [place] [address] 18007- 2427 Jun, Paranoid schizophrenia F20.0 ; Depression with anxiety F41.8 and BMI 45.0-49.9, adult Z68.42 [facility] [id number] [place] [address] 85634- 6411 Jun, Schizoaffective disorder, depressive type F25.1 [facility] [id number] [place] [address] [id number] 13 Jun, 2017 Dental caries K02.9 [facility] [address] 97914- 3219 Jun, Paranoid schizophrenia F20.0 [facility] [address] [place] [address] 53979- 2193 May, Migraine without aura and without status migrainosus, not intractable G43.009 ; DM neuro manif type II E11.49 and Type 2 diabetes mellitus without complication, without long-term current use of insulin E11.9 [facility] [id number] [place] [address] 80152- 5261 May, Migraine without aura and without status migrainosus, not intractable G43.009 [facility] [id number] [place] [address] 73672- 5554 May, Depression with anxiety F41.8 [facility] [id number] [place] [address] [id number] May, [facility] [id number] [place] [address] 88192- 6966 May, [facility] [id number] [place] [address] 16142- 1439 May, [facility] [id number] [place] [address] 43815- 3000 May, Hypothyroidism (acquired) E03.9 [facility] [id number] [place] [address] 33458- 5171 May, Paranoid schizophrenia F20.0 [facility] [id number] [place] [address] 99505- 7237 May, Type 2 diabetes mellitus without complication, [...] N32.81 and Controlled substance agreement signed Z79.899 [facility] [id number] [place] [address] 75591- 0728 May, Controlled substance agreement signed Z79.899 [facility] [id number] [place] [address] 20610- 8323 Apr, [facility] [address] [id number] Apr, Dental examination Z01.20 [facility] [address] 55999- 3226 Apr, Paranoid schizophrenia F20.0 [facility] [id number] [place] [address] 51921- 4398 Apr, Hypertension, unspecified type I10 [facility] [id number] [place] [address] 62588- 2414 Apr, Paranoid schizophrenia F20.0 [facility] [address] 33281- 2915 Apr, [facility] [id number] [place] [address] 57018- 3852 Apr, Tobacco abuse Z72.0 [facility] [id number] [place] [address] 75256- 0896 Apr, [facility] [id number] [place] [address] 08412- 6106 Mar, [facility] [address] 81612- 6695 Mar, Paranoid schizophrenia F20.0 and BMI 45.0-49.9, adult Z68.42 [facility] [id number] [place] [address] 50706- 8922 Mar, Schizoaffective disorder, depressive type F25.1 [place] [id number] [place] [address] 37870- 3145 14 Mar, 2017 [place] [address] 22396- 6859 Mar, Hypothyroidism, unspecified type E03.9 [place] [address] 25968- 9405 Mar, Schizoaffective disorder, depressive type F25.1 [facility] [address] 54278 -3094 Feb, Gastroenteritis K52.9 and BMI 45.0-49.9, adult Z68.42 [place] [address] 89953- 4348 Feb, [place] [address] 03421- 1201 Feb, [place] [address] 46687- 3622 Feb, [place] [address] 74107- 4439 Feb, [place] [address] 49780- 2473 Feb, Paranoid schizophrenia F20.[address] 18458- 2674 06 Feb, 2017 Gastroesophageal reflux disease without esophagitis K21.9 ; Other seasonal allergic rhinitis J30.2 ; Other allergic rhinitis J30.89 ; Tobacco abuse Z72.0 and BMI 40.0-44.9, adult Z68.[address] 37766- 7187 03 Feb, 2017 Onychomycosis B35.1 ; Callus of foot L84 and DM neuro manif type II E11.[address] 92314- 6526 Jan, Chronic allergic rhinitis J30.9 [facility] [id number] [place] [address] 84104- 5842 16 Jan, 2017 [facility] [address] 24838- 7524 Jan, Schizoaffective disorder, depressive type F25.1 [facility] [address] 65832- 9930 Jan, [facility] [address] 81783 -4455 07 Jan, 2017 Sore throat J02.9 and Seasonal allergic rhinitis due to other allergic trigger J30.89 [facility] [address] 40574- 2482 04 Jan, 2017 [facility] [address] 46094- 8099 Jan, [facility] [address] 67728 -4737 Jan, Chronic allergic rhinitis J30.9 [facility] [address] 68806- 9672 27 Dec, 2016 Paranoid schizophrenia F20.0 ; Primary insomnia F51.01 and Schizoaffective disorder, depressive type F25.1 [facility] [address] 55683- 0939 21 Dec, 2016 Chronic pain syndrome G89.4 ; Cervicalgia of occipito- atlanto-axial region M54.2 ; Menopausal syndrome (hot flashes) N95.1 and Encounter for immunization Z23 [facility] [address] 95110- 3043 14 Dec, 2016 [facility] [address] 22798- 7854 13 Dec, 2016 [facility] [address] 22347- 0019 Dec, Paranoid schizophrenia F20.0 [facility] [address] [place] [address] 78367- 8974 Dec, Schizoaffective disorder, depressive type F25.1 [facility] [id number] [place] [address] 03827- 5828 Nov, Hypothyroidism, unspecified type E03.9 [facility] [id number] [place] [address] 03072 -6483 Nov, Acute seasonal allergic rhinitis due to other allergen J30.89 [facility] [id number] [place] [address] 51434- 5910 Nov, [facility] [id number] [place] [address] 20244- 3502 Nov, Hypothyroidism, unspecified type E03.9 and Other elevated white blood cell (WBC) count D72.828 [place] [id number] [place] [address] 75434- 5609 Nov, Schizoaffective disorder, depressive type F25.1 [place] [id number] [place] [address] 87640- 4047 Nov, Paranoid schizophrenia F20.0 [facility] [id number] [place] [address] 10659- 2632 Nov, Type 2 diabetes mellitus without complication, without long- term current use of insulin E11.9 ; Morbid obesity due to excess calories E66.01 and Chronic pain syndrome G89.4 [facility] [id number] [place] [address] 31538- 2946 Oct, Paranoid schizophrenia F20.0 [place] [id number] [place] [address] 42105- 5041 Oct, [facility] [id number] [place] [address] 28212- 3093 Oct, Schizoaffective disorder, depressive type F25.1 [place] [id number] [place] [address] 30952- 1227 Oct, Hypothyroidism, unspecified type E03.9 and Other elevated white blood cell (WBC) count D72.828 [facility] [id number] [place] [address] 31411- 9319 Oct, Morbid obesity due to excess calories E66.01 ; Chronic obstructive pulmonary disease, unspecified COPD type J44.9 ; History of lupus Z87.39 ; Hypothyroidism, unspecified type E03.9 ; Gastroesophageal reflux disease without esophagitis K21.9 ; Primary insomnia F51.01 and Chronic pain syndrome G89.4 [place] [id number] [place] [address] 08945- 1896 Sep, [place] [id number] [place] [address] 08339- 5912 Sep, [place] [id number] [place] [address] 94837- 7731 Sep, [place] [id number] [place] [address] 69142- 5214 Sep, Paranoid schizophrenia F20.0 [place] [id number] [place] [address] 49921- 8298 Sep, [place] [id number] [place] [address] 98392- 2535 Sep, Paranoid schizophrenia F20.0 [facility] [id number] [place] [address] 44536- 2268 Sep, [facility] [id number] [place] [address] 83323- 4141 August, Paranoid schizophrenia F20.0 [facility] [id number] [place] [address] 61247- 1385 Jul, [facility] [id number] [place] [address] 91207- 3853 Jul, Type 2 diabetes mellitus without complication, without long- term current use of insulin E11.9 ; Morbid obesity due to excess calories E66.01 ; Depression with anxiety F41.8 ; Hypothyroidism, unspecified type E03.9 ; Seasonal allergic rhinitis due to other allergic trigger J30.89 ; Pain, dental K08.89 and Gastroesophageal reflux disease without esophagitis K21.9 [facility] [address] [place] [address] [id number] 12 Jul, 2016 Dental examination Z01.20 [place] [address] 55508- 2292 07 Jul, 2016 Paranoid schizophrenia F20.[address] 64159- 4664 13 Jun, 2016 Paranoid schizophrenia F20.0 and Depression with anxiety F41.8 [place] [address] 26445- 7639 10 Jun, 2016 Paranoid schizophrenia F20.0 and Depression with anxiety F41.8 [place] [id number] [place] [address] 87877- 5168 09 Jun, [address] 23577- 4709 Jun, [facility] [id number] [place] [address] 32769 -0629 Jun, Seasonal allergic rhinitis due to other allergic trigger J30.89 [facility] [id number] [place] [address] 52344 -0503 May, Sore throat J02.9 ; Other viral agents as the cause of diseases classified elsewhere B97.89 and Acute upper respiratory infection, unspecified J06.9 [address] [id number] [place] [address] 30788- 0956 May, Paranoid schizophrenia F20.0 and Depression with anxiety F41.8 [place] [address] 05112- 2399 Apr, Other seasonal allergic rhinitis J30.2 [place] [id number] [place] [address] 70617- 2889 Apr, Paranoid schizophrenia F20.0 and Depression with anxiety F41.8 [facility] [id number] [place] [address] 75661 -7862 Apr, Bronchitis J40 and Sore throat J02.9 [place] [address] 57290- 8164 Apr, Type 2 diabetes mellitus without complication, without long- term current use of insulin E11.9 [facility] [address] 16989 -0856 Apr, Bronchitis J40 [place] [address] 51518- 4913 Apr, [place] [address] 21404- 2436 Apr, [place] [id number] [place] [address] 69527- 7010 Mar, Type 2 diabetes mellitus without complication, [...] R60.9 and Other seasonal allergic rhinitis J30.2 [place] [id number] [place] [address] 58120- 1727 Mar, Paranoid schizophrenia F20.0 and Depression with anxiety F41.8 [place] [id number] [place] [address] 88720- 2497 Feb, [place] [address] 20299- 5353 Feb, [facility] [address] [address]- 1072 Feb, [facility] [id number] [place] [address] 60612- 6014 Feb, [facility] [id number] [place] [address] 06826- 8342 Feb, Type 2 diabetes mellitus without complication, without long- term current use of insulin E11.9 ; ARIAS on CPAP G47.33 and Preoperative evaluation to rule out surgical contraindication Z01.818 [facility] [id number] [place] [address] 35551- 3814 Feb, Paranoid schizophrenia F20.0 and Depression with anxiety F41.8 [facility] [id number] [place] [address] 06821- 1467 Jan, [facility] [id number] [place] [address] 55991- 7275 Jan, Paranoid schizophrenia F20.0 and Depression with anxiety F41.8 [facility] [id number] [place] [address] 07144- 3235 Jan, [facility] [id number] [place] [address] 19703- 4470 Jan, Muscle strain T14.8 [facility] [id number] [place] [address] 01402- 9681 Jan, Paranoid schizophrenia F20.0 [facility] [id number] [place] [address] 07245- 8777 Jan, [facility] [id number] [place] [address] 34259- 6451 Jan, Paranoid schizophrenia F20.0 and Depression with anxiety F41.8 [facility] [id number] [place] [address] 67649- 8443 Jan, [facility] [id number] [address]- 8786 Jan, [facility] [id number] [address]- 6056 28 Dec, 2015 [facility] [id number] [place] [address] 49912- 4192 23 Dec, 2015 Paranoid schizophrenia F20.0 [facility] [id number] [place] [address] 57149- 1259 16 Dec, 2015 Paranoid schizophrenia F20.0 and Depression with anxiety F41.8 [facility] [id number] [place] [address] 47242- 7214 Nov, [facility] [id number] [place] [address] 85308- 8280 Nov, Paranoid schizophrenia F20.0 [facility] [id number] [place] [address] 76500- 1673 Nov, Paranoid schizophrenia F20.0 and Depression with anxiety F41.8 [facility] [address] [place] [address] 02511- 2914 Nov, Type 2 diabetes mellitus without complication, without long- term current use of insulin E11.9 ; Paranoid schizophrenia F20.0 ; Chronic obstructive pulmonary disease, unspecified COPD type J44.9 ; Morbid obesity due to excess calories E66.01 and Parkinsonian tremor G20 [facility] [address] [address]- 6401 Nov, [facility] [address] [address]- 8598 Oct, Paranoid schizophrenia F20.0 [facility] [id number] [place] [address] 89948- 6333 Oct, Paranoid schizophrenia F20.0 [facility] [address] [address]- 6976 Oct, Paranoid schizophrenia F20.0 and Depression with anxiety F41.8 [place] [address] [address]- 1551 Oct, [place] [id number] [place] [address] 12351- 2442 Oct, Paranoid schizophrenia F20.0 and Depression with anxiety F41.8 [place] [id number] [place] [address] 38124- 8143 Oct, Nasal sore J34.89 [place] [id number] [place] [address] 07886- 1185 Oct, Type 2 diabetes mellitus without complication, without long- term current use of insulin E11.9 ; Depression with anxiety F41.8 ; Hypothyroidism, unspecified type E03.9 and History of lupus Z87.39 [place] [id number] [place] [address] 42704- 9364 Oct, [place] [id number] [place] [address] 96537- 4401 Oct, Type 2 diabetes mellitus without complication, [...] edema R60.9 and History of lupus Z87.39 [place] [address] [place] [address] 51511- 2336 Feb, [place] [id number] [place] [address] 27302- 7947 Jan, [place] [id number] [place] [address] 14427- 8519 Jan, [place] [address] [place] [address]- 5598 Jan, [facility] [address] [facility] [id number] [place]- 1355 Dec, [facility] [address] [facility] [id number] [place] [address]- 8289 Nov, [facility] [address] [id number] [place] [address] Nov, [facility] [address] [facility] [id number] [place] Oct, [facility] [address] [id number] [address] Oct, [facility] [id number] [place] [address] Oct, [facility] [id number] [place] [address] Sep, Allergic rhinitis 477.9 [facility] [id number] [address] Sep, Rhinitis, allergic 477.9 [facility] [id number] [place] [address] Sep, Rhinitis, allergic 477.9 [facility] [id number] [place] [address] Sep, [facility] [address] [id number] [address] August, [facility] [place] [facility] [address] [id number] [place] [address] August, [facility] [id number] [address] August, [facility] [place] [facility] [address] [id number] [place] [address] Jul, [facility] [id number] [place] [address] 14 Jul, 2014 [facility] [place] [facility] [address] [id number] [place] [address] 13 Jul, 2014 [facility] [place] [facility] [address] [id number] [place] [address] 16 Jun, 2014 [facility] [place] [facility] [address] [id number] [place] [address] 16 Jun, 2014 [facility] [place] [facility] [address] [id number] [place] [address] 12 Jun, 2014 [facility] [place] [facility] [address] [id number] [place] [address] Jun, [facility] [place] [facility] [address] [id number] [place] [address] Jun, [facility] [place] [facility] [address] [id number] [place] [address] Jun, [facility] [place] [facility] [address] [id number] [place] [address] Jun, [facility] [place] [facility] [address] [id number] [place] [address] Jun, [facility] [place] [facility] [address] [facility] [id number] [place] [address] May, [facility] [place] [facility] [address] [id number] [place] [address] May, [facility] [place] [facility] [address] [id number] [place] [address] May, [facility] [place] [facility] [address] [id number] [place] [address] May, [facility] [place] [facility] [address] [id number] [place] [address] Apr, [facility] [place] [facility] [address] [id number] [place] [address] Mar, [facility] [place] [facility] [address] [id number] [place] [address]36 Mar, [facility] [place] [facility] [address] [id number] [place] [address] Mar, [facility] [place] [facility] [address] [id number] [place] [address] 79[address] Mar, [facility] [place] [facility] [address] [id number] [place] [address] Mar, [facility] [place] [facility] [address] [id number] [place] [address] Mar, [facility] [place] [facility] [address] [id number] [place] [address] Mar, [facility] [place] [facility] [address] [id number] [place] [address] 67[address] Mar, [facility] [place] [facility] [address] [id number] [place] [address] 68[address] Mar, [facility] [place] [facility] [address] [id number] [place] [address] Feb, [facility] [place] [facility] [address] [id number] [place] [address] 8[address] Feb, [facility] [place] [facility] [address] [id number] [place] [address]70 Feb, [facility] [place] [facility] [address] [id number] [place] [address] 57[address] 17 Feb, 2014 [facility] [place] [facility] [address] [id number] [place] [address] 9097 Feb, [facility] [place] [facility] [address] [id number] [place] [address] 8921 14 Feb, 2014 [facility] [place] [facility] [address] [id number] [place] [address] 12 Feb, 2014 [facility] [place] [facility] [address] [id number], [place] [address] Feb, [facility] [place] [facility] [address] [id number] [place] [address]16 23 Jan, 2014 [facility] [place] [facility] [address] [id number] [place] [address] 23 Jan, 2014 [facility] [place] [facility] [address] [id number] [place] [address] 7905 16 Jan, 2014 [facility] [place] [facility] [address] [id number] [place] [address] 7579 16 Jan, 2014 [facility] [place] [facility] [address] [id number] [place] [address] 5319 15 Jan, 2014 [facility] [place] [facility] [address] [id number] [place] [address] 8707 15 Jan, 2014 [facility] [place] [facility] [address] [id number] [place] [address] 14 Jan, 2014 [facility] [place] [facility] [address] [id number] [place] [address]- 6698 14 Jan, 2014 [facility] [place] [facility] [address] [id number] [place] [address] 4548 14 Jan, 2014 [facility] [place] [facility] [address] [id number] [place] [address] 5431 14 Jan, 2014 [facility] [place] [facility] [address] [id number] [place] [address] 49[address] 18 Dec, 2013 [facility] [place] [facility] [address] [id number] [place] [address]87 18 Dec, 2013 [facility] [place] [facility] [address] [id number] [place] [address] 10 Dec, 2013 [facility] [place] [facility] [address] [id number] [place] [address] 9570 10 Dec, 2013 [facility] [place] [facility] [address] [id number] [place] [address] 36[address] Nov, [facility] [place] [facility] [address] [id number] [place] [address]478 Nov, [facility] [place] [facility] [address] [id number] [place] [address]290 Nov, [facility] [place] [facility] [address] [id number] [place] [address] 74[address] Nov, [facility] [place] [facility] [address] [id number] [place] [address]687 Nov, [facility] [place] [facility] [address] [id number] [place] [address] Oct, [facility] [place] [facility] [address] [id number] [place] [address] 9544 Oct, [facility] [place] [facility] [address] [id number] [place] [address] 2671 Oct, [facility] [place] [facility] [address] [id number] [place] [address] 5820 Oct, [facility] [place] [facility] [address] [id number] [place] [address] Sep, [facility] [place] [facility] [address] [id number] [place] [address] 98[address] Sep, [facility] [place] [facility] [address] [id number] [place] [address] Sep, [facility] [place] [facility] [address] [id number] [place] [address] 1782 Sep, [facility] [place] [facility] [address] [id number] [place] [address] 8904 Sep, [facility] [place] [facility] [address] [id number] [place] [address]993 Sep, [facility] [place] [facility] [address] [id number] [place] [address] 3[address] Sep, [facility] [place] [facility] [address] [id number] [place] [address] 6949 Sep, [facility] [address] [id number] [place] [address] 9826 August, [facility] [place] [facility] [address] [id number] [place] [address] 1380 August, [facility] [place] [facility] [address] [id number] [place] [address] 4191 August, [facility] [place] [facility] [address] [id number] [place] [address]- 7313 August, [facility] [place] [facility] [address] [id number] [place] [address]- 4570 August, [facility] [place] [facility] [address] [id number] [place] [address] 3108 August, [facility] [place] [facility] [address] [id number] [place] [address] 6344 August, [facility] [place] [facility] [address] [id number] [place] [address] 5523 Jul, [facility] [place] [facility] [address] [id number] [place] [address] 1220 Jul, [facility] [place] [facility] [address] [id number] [place] [address] 6933 Jul, [facility] [place] [facility] [address] [id number] [place] [address] 6070 Jul, [facility] [place] [facility] [address] [id number] [place] [address] 4431 Jul, [facility] [place] [facility] [address] [id number] [place] [address] 5652 Jul, [facility] [place] [facility] [address] [id number] [place] [address] 3132 Jul, [facility] [place] [facility] [address] [id number] [place] [address]- [address]393 Jul, [facility] [place] [facility] [address] [id number] [place] [address]- 6289 Jul, [facility] [place] [facility] [address] [id number] [place] [address]- 2198 Jul, [facility] [place] [facility] [address] [id number] [place] [address]- 8352 Jul, [facility] [place] [facility] [address] [facility] [id number] [place] [address]- 4597 Jul, [facility] [place] [facility] [address] [facility] [id number] [place] [address]- 5627 Jun, [facility] [place] [facility] [address] [id number] [place] [address] 7704 Jun, [facility] [place] [facility] [address] [facility] [id number] [place] [address]- 2612 Jun, [facility] [place] [facility] [address] [facility] [id number] [place] [address]- 6698 Jun, [facility] [place] [facility] [address] [facility] [id number] [place] [address]- 1166 Jun, [facility] [place] [facility] [address] [facility] [id number] [place] [address]- 1828 May, [facility] [place] [facility] [address] [facility] [id number] [place] [address]- 3284 May, [facility] [place] [facility] [address] [facility] [id number] [place] [address]- 2540 May, [facility] [place] [facility] [address] [facility] [id number] [place] [address]- 2873 May, [facility] [place] [facility] [address] [facility] [id number] [place] [address]- 9598 May, [facility] [place] [facility] [address] [facility] [id number] [place] [address]- 8139 May, [facility] [place] [facility] [address] [facility] [id number] [place] [address]- 2742 May, [facility] [address] [id number] [place] [address]- 6946 May, [facility] [place] [facility] [address] [id number] [place] [address]- 8946 Mar, [facility] [place] [facility] [address] [id number] [place] [address] Mar, [facility] [place] [facility] [address] [id number] [place] [address]- 2750 Mar, [facility] [place] [facility] [address] [id number] [place] [address]- 5109 Mar, [facility] [place] [facility] [address] [id number] [place] [address]- 8067 Mar, [facility] [place] [facility] [address] [id number] [place] [address]- 5939 Mar, [facility] [place] [facility] [address] [id number], [place] [address]- 4[address] Feb, [facility] [place] [facility] [address] [id number], [place] [address]- 0527 Feb, [facility] [place] [facility] [address] [id number], [place] [address]- 0691 Jan, [facility] [place] [facility] [address] [id number], [place] [address]- 2139 Jan, [facility] [place] [facility] [address] [id number], [place] [address]- 8247 Jan, [facility] [place] [facility] [address] [id number], [place] [address]- 8826 Jan, [facility] [place] [facility] [address] [id number], [place] [address]- 1073 Jan, [facility] [place] [facility] [address] [id number], [place] [address]- 7773 Jan, [facility] [place] [facility] [address] [id number] [place] [address]- 1046 Jan, [facility] [address] [id number] [place] [address]- 3069 Jan, [facility] [place] [facility] [address] [id number] [place] [address]- 8035 Jan, [facility] [place] [facility] [address] [id number] [place] [address]- 6629 Jan, [facility] [place] [facility] [address] [id number] [place] [address]- 6701 Dec, [facility] [place] [facility] [address] [id number] [place] [address]- 3651 Nov, [facility] [place] [facility] [address] [id number] [place] [address]- 7745 Nov, [facility] [place] [facility] [address] [id number] [place] [address]- 5545 Nov, [facility] [place] [facility] [address] [id number] [place] [address]- 6609 Oct, [facility] [place] [facility] [address] [id number] [place] [address]- 1703 Oct, [facility] [place] [facility] [address] [id number] [place] [address]- 5293 August, [facility] [place] [facility] [address] [id number] [place] [address]- 4402 Apr, [facility] [place] [facility] [address] [id number] [place] [address]- 4757 Apr, [facility] [place] [facility] [address] [id number] [place] [address]- 2739 Feb, [facility] [place] [facility] [address] [id number] [place] [address]- 3188 Feb, [facility] [place] [facility] [address] [id number] [place] [address]- 6232 Dec, [facility] [place] [facility] [address] [facility] [id number], [place] [address]- [address] Dec, [facility] [address] [facility] [id number], [place] [address]649 Oct, [facility] [address] [facility] [id number], [place] [address]- 5715 Oct, [facility] [address] [facility] [id number], [place] [address]- 7066 Oct, [facility] [address] [facility] [id number], [place] [address]- 3861 Jul, IMMUNIZATIONS No Known Immunizations SOCIAL HISTORY Never Assessed REASON FOR VISIT 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 (chronic)-- 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 PLAN OF CARE Activity Details Follow Up 2 months Reason: VITAL SIGNS Height 57 in 2017-03-01 Weight 225.0 lbs 2017-03-01 Temperature 98.7 degrees Fahrenheit 2017-03-01 Heart Rate 78 bpm 2017-03-01 Respiratory Rate 22 2017-03-01 BMI 48.68 kg/m2 2017-03-01 Blood pressure systolic 138 mmHg 2017-03-01 Blood pressure diastolic 82 mmHg 2017-03-01 MEDICATIONS Medication Instructions Dosage Frequency Start Date End Date Duration Status Levothyroxine Sodium 175MCG Orally Once a day 1 tablet 24h 30 Active Tizanidine HCl 4 MG Orally 3 times a day 1 1/2 tablets 8h Active Lisinopril 2.5 MG Orally Once a day 1 tablet 24h Nov, 90 days Active Norvasc 10 mg Orally Once a day 1 tablet 24h 30 Active HydrOXYzine HCl 50MG TAKE ONE TO TWO TABLETS BY MOUTH EVERY 8 HOURS NEEDED FOR 30 DAYS 30 Active Singulair 10 MG Orally Once a day 1 tablet in the evening 24h Jan, 30 day(s) Active Nicoderm CQ 21 MG/24HR Transdermal Once a day 1 patch to skin 24h Feb, Apr, 30 day(s) Active Januvia 50MG TAKE ONE TABLET BY MOUTH ONCE DAILY 90 Active Neurontin 600 MG Orally 2 times a day 1 tablet 12h Nov, 90 days Active Esomeprazole Magnesium 40 mg Orally Once a day 1 capsule 24h Feb, 30 day(s) Active Ibuprofen 800MG TAKE ONE TABLET BY MOUTH THREE TIMES DAILY NEEDED Active Ventolin HFA 108MCG/A INHALE TWO PUFFS BY MOUTH EVERY 4 HOURS NEEDED 30 Active Chantix Starting Month Rahul 0.5 MG X 11 & 1 MG X 42 Orally as directed as directed Feb, Mar, 30 days Active Ventolin HFA 108 (90 Base) MCG/ACT Inhalation every 4 hrs 2 puffs as needed 4h Feb, 90 days Active Sertraline HCl 50 MG 1 tablet Once a day take with 100mg tablet Orally 30 day(s) 30 Active Spironolactone 50MG Orally Once a day 1 tablet 24h 30 Active Tramadol HCl 50 MG Orally every 6 hrs 1 tablet as needed 6h Active Plaquenil 200 mg Orally Once a day 1 tablet with food or milk 24h 30 Active Restasis 0.05 % instill 1 drop into affected eye(s) by ophthalmic route 2 times per day Oct, Active Montelukast Sodium 10 mg Orally Once a day 1 tablet in the evening 24h Feb, 30 day(s) Active Loxapine Succinate 25 MG Orally 4 times a day PRN 1 capsule Active Breo Ellipta 100-25 INHALE ONE PUFF BY MOUTH ONCE DAILY AT THE SAME TIME EACH DAY 30 Active Cetirizine HCl 10 mg Orally Once a day 1 tablet 24h Feb, Feb, 30 day(s) Active Pravastatin Sodium 20 MG Orally Once a day 1 tablet 24h Active Invega Sustenna 234 MG/1.5ML Intramuscular Once a month, on the 10th of every month 1.5 ml 30 days Active Metformin HCl 1000MG TAKE ONE TABLET BY MOUTH TWICE DAILY 90 Active Myrbetriq 50 MG Orally Once a day 1 tablet 24h 90 days Active Cetirizine HCl 10MG TAKE ONE TABLET BY MOUTH ONCE DAILY 90 Active Estradiol 1 MG Orally Once a day 1 tablet 24h Dec, 30 day(s) Active Ambien 5 mg Orally Once a day 1 tablet at bedtime 24h Oct, 28 days Active RESULTS No Results PROCEDURES Procedure Date Ordered Result Body Site [facility] VISIT ESTABLISHED PATIENT Mar 01, 2017 INSTRUCTIONS MEDICATIONS ADMINISTERED No Known Medications [...] illness , last one in [facility] 4 years ago
--- OUTSIDE RECORDS SUMMARY | 2018-09-02 14:03 | XMS REPORT ---
Author Author EDWIN UMESH Organization [facility] Address [address] [place] [address] Care Team Providers Care Sticker Operator Name Role Phone UMESH PINEDA Unavailable PROBLEMS Type Condition ICD9-CM Code XIR81-BY Code Onset Dates Condition Status SNOMED Code Problem Other seasonal allergic rhinitis J30.2 Active 557477571 Problem Gastroesophageal reflux disease, esophagitis presence not specified K21.9 Active 285954041 Problem Tobacco abuse Z72.0 Active 933650911 Problem Seasonal allergic rhinitis due to pollen J30.1 Active 03381415 Problem History of lupus Z87.39 Active 567470832 Problem COPD exacerbation J44.1 Active 919414077 Problem OAB (overactive bladder) N32.81 Active 433607057 Problem Morbid obesity due to excess calories E66.01 Active 151553631 Problem Dyslipidemia E78.5 Active 690336106 Problem Migraine without aura and without status migrainosus, not intractable G43.009 Active 755724907 Problem Hypothyroidism (acquired) E03.9 Active 837964063 Problem Essential hypertension I10 Active 45435839 Problem Type 2 diabetes mellitus without complication, without long-term current use of insulin E11.9 Active 389236836 Problem Gastroesophageal reflux disease without esophagitis K21.9 Active 286202335 Problem Chronic pain syndrome G89.4 Active 244192079 Problem Paranoid schizophrenia F20.0 Active 90958279 Problem Primary insomnia F51.01 Active 3850500 Problem DM neuro manif type II E11.49 Active 35530106 Problem Depression with anxiety F41.8 Active 841183865 Problem Seasonal allergic rhinitis due to other allergic trigger J30.89 Active 164535848 Problem Menopausal syndrome (hot flashes) N95.1 Active 632523672 Problem Chronic obstructive pulmonary disease, unspecified COPD type J44.9 Active 29115765 Problem Schizoaffective disorder, depressive type F25.1 Active 79329780 Problem Other allergic rhinitis J30.89 Active 433835898 ALLERGIES No Information ENCOUNTERS Encounter Location Date Diagnosis [facility] [address] [address] Nov, [facility] [id number] [place] [address] 90890- 0566 Oct, [facility] [id number] [place] [address] 21361- 2079 Sep, [facility] [id number] [place] [address] 52967- 6170 August, Schizoaffective disorder, depressive type F25.1 [facility] [id number] [place] [address] 34894- 8817 August, [facility] [id number] [place] [address] 89744- 8204 August, [facility] [id number] [place] [address] 36249- 3128 August, [facility] [id number] [place] [address] 37090- 3603 August, Paranoid schizophrenia F20.0 [facility] [id number] [place] [address] 37227- 9422 August, History of lupus Z87.39 and Chronic pain syndrome G89.4 [facility] [id number] [place] [address] 18907- 9263 August, [facility] [id number] [place] [address] 55851 -8055 August, Seasonal allergic rhinitis, unspecified trigger J30.2 and BMI 45.0-49.9, adult Z68.42 [facility] [id number] [place] [address] 83532- 0357 Jul, Schizoaffective disorder, depressive type F25.1 [facility] [id number] [place] [address] 73388- 8552 Jul, [facility] [id number] [place] [address] 46510- 1305 Jul, Hypothyroidism (acquired) E03.9 [facility] [address] 59967- 8363 11 Jul, 2017 Chronic obstructive pulmonary disease, unspecified COPD type J44.9 and Type 2 diabetes mellitus without complication, without long-term current use of insulin E11.9 [place] [address] 91006- 9702 Jul, Paranoid schizophrenia F20.0 [place] [address] 49304- 5173 Jun, Hypothyroidism (acquired) E03.9 and Seasonal allergic rhinitis due to pollen J30.1 [facility] [address] 26213 -5308 Jun, Shortness of breath at rest R06.02 ; COPD exacerbation J44.1 and BMI 45.0-49.9, adult Z68.42 [place] [address] 19828- 2856 Jun, [place] [address] 13587- 1589 Jun, Paranoid schizophrenia F20.0 ; Depression with anxiety F41.8 and BMI 45.0-49.9, adult Z68.42 [place] [address] 36071- 4504 Jun, Schizoaffective disorder, depressive type F25.1 [facility] [address] [id number] Jun, Dental caries K02.9 [place] [address] 76164- 1847 Jun, Paranoid schizophrenia F20.0 [place] [address] 93727- 2059 May, Migraine without aura and without status migrainosus, not intractable G43.009 ; DM neuro manif type II E11.49 and Type 2 diabetes mellitus without complication, without long-term current use of insulin E11.9 [facility] [id number] [place] [address] 33601- 3995 May, Migraine without aura and without status migrainosus, not intractable G43.009 [facility] [id number] [place] [address] 95360- 8223 May, Depression with anxiety F41.8 [facility] [id number] [place] [address] [id number] May, [facility] [id number] [place] [address] 83809- 3931 May, [facility] [address] 06823- 1950 May, [facility] [address] 38993- 3310 May, Hypothyroidism (acquired) E03.9 [facility] [address] 52878- 9805 May, Paranoid schizophrenia F20.0 [facility] [id number] [place] [address] 65698- 9500 May, Type 2 diabetes mellitus without complication, [...] [facility] [address], [place] [address] 5904 May, Controlled substance agreement signed Z79.899 [facility] [id number] [place] [address] 02997- 1443 Apr, [facility] [id number] [place] [address] [id number] Apr, Dental examination Z01.20 [facility] [id number] [place] [address] 46657- 6311 Apr, Paranoid schizophrenia F20.0 [facility] [id number] [place] [address] 74876- 3764 Apr, Hypertension, unspecified type I10 [facility] [id number] [place] [address] 29802- 2274 Apr, Paranoid schizophrenia F20.0 [facility] [id number] [place] [address] 97548- 0879 Apr, [facility] [id number] [place] [address] 15263- 5334 Apr, Tobacco abuse Z72.0 [facility] [id number] [place] [address] 72305- 0929 Apr, [facility] [id number] [place] [address] 62069- 0171 Mar, [facility] [id number] [place] [address] 35213- 6431 Mar, Paranoid schizophrenia F20.0 and BMI 45.0-49.9, adult Z68.42 [facility] [id number] [place] [address] 56589- 6275 Mar, Schizoaffective disorder, depressive type F25.1 [facility] [id number] [place] [address] 91274- 1165 Mar, [place] [id number] [place] [address] 80991- 8705 Mar, Schizoaffective disorder, depressive type F25.1 [place] [address] 74394- 9198 Mar, Hypothyroidism, unspecified type E03.9 [facility] [address] 66830 -8412 Feb, Gastroenteritis K52.9 and BMI 45.0-49.9, adult Z68.42 [place] [address] 70696- 8728 Feb, [place] [address] 80213- 5042 Feb, [place] [address] 07601- 3798 Feb, [place] [address] 80625- 0068 Feb, [place] [address] 50536- 4289 Feb, Paranoid schizophrenia F20.[address] 61128- 5696 Feb, Gastroesophageal reflux disease without esophagitis K21.9 ; Other seasonal allergic rhinitis J30.2 ; Other allergic rhinitis J30.89 ; Tobacco abuse Z72.0 and BMI 40.0-44.9, adult Z68.41 [place] [id number] [place] [address] 36400- 9345 Feb, Onychomycosis B35.1 ; Callus of foot L84 and DM neuro manif type II E11.49 [place] [id number] [place] [address] 93119- 2368 Jan, Chronic allergic rhinitis J30.9 [place] [address] 47070- 6608 16 Jan, 2017 [facility] [id number] [place] [address] 97847- 9785 Jan, Schizoaffective disorder, depressive type F25.1 [facility] [id number] [place] [address] 38327- 9952 10 Jan, 2017 [facility] [id number] [place] [address] 61946 -0753 07 Jan, 2017 Sore throat J02.9 and Seasonal allergic rhinitis due to other allergic trigger J30.89 [facility] [id number] [place] [address] 59266- 2305 Jan, [place] [id number] [place] [address] 09196- 3996 04 Jan, 2017 [facility] [id number] [place] [address] 24476 -3542 Jan, Chronic allergic rhinitis J30.9 [facility] [id number] [place] [address] 60234- 8180 27 Dec, 2016 Paranoid schizophrenia F20.0 ; Primary insomnia F51.01 and Schizoaffective disorder, depressive type F25.1 [place] [id number] [place] [address] 06888- 6900 21 Dec, 2016 Chronic pain syndrome G89.4 ; Cervicalgia of occipito- atlanto-axial region M54.2 ; Menopausal syndrome (hot flashes) N95.1 and Encounter for immunization Z23 [facility] [id number] [place] [address] 97766- 7161 14 Dec, 2016 [place] [address] 73928- 1824 13 Dec, 2016 [place] [id number] [place] [address] 81906- 6070 08 Dec, 2016 Paranoid schizophrenia F20.0 [place] [id number] [place] [address] 44076- 1619 Dec, Schizoaffective disorder, depressive type F25.1 [facility] [id number] [place] [address] 88246- 2951 Nov, Hypothyroidism, unspecified type E03.9 [facility] [address] [place] [address] 50246 -9783 Nov, Acute seasonal allergic rhinitis due to other allergen J30.89 [facility] [id number] [place] [address] 57347- 5483 Nov, [facility] [id number] [place] [address] 50474- 2417 Nov, Hypothyroidism, unspecified type E03.9 and Other elevated white blood cell (WBC) count D72.828 [place] [id number] [place] [address] 97548- 1442 Nov, Schizoaffective disorder, depressive type F25.1 [place] [id number] [place] [address] 59089- 0040 Nov, Paranoid schizophrenia F20.0 [place] [id number] [place] [address] 49518- 5880 Nov, Type 2 diabetes mellitus without complication, without long- term current use of insulin E11.9 ; Morbid obesity due to excess calories E66.01 and Chronic pain syndrome G89.4 [place] [id number] [place] [address] 25238- 7997 Oct, Paranoid schizophrenia F20.0 [place] [address] [place] [address] 43918- 0277 Oct, [place] [id number] [place] [address] 20834- 4849 Oct, Schizoaffective disorder, depressive type F25.1 [place] [id number] [place] [address] 74130- 1455 Oct, Hypothyroidism, unspecified type E03.9 and Other elevated white blood cell (WBC) count D72.828 [facility] [address], [place] [address]- 2780 Oct, Morbid obesity due to excess calories E66.01 ; Chronic obstructive pulmonary disease, unspecified COPD type J44.9 ; History of lupus Z87.39 ; Hypothyroidism, unspecified type E03.9 ; Gastroesophageal reflux disease without esophagitis K21.9 ; Primary insomnia F51.01 and Chronic pain syndrome G89.4 [facility] [id number] [place] [address] 88272- 3344 Sep, [facility] [id number] [place] [address] 98284- 2960 Sep, [facility] [id number] [place] [address] 87283- 8667 Sep, [facility] [id number] [place] [address] 96931- 4101 Sep, Paranoid schizophrenia F20.0 [facility] [address], [place] [address]- 3254 Sep, [facility] [id number] [place] [address] 88203- 5412 Sep, Paranoid schizophrenia F20.0 [facility] [id number] [address]- 0768 Sep, [facility] [id number] [place] [address] 53946- 4052 August, Paranoid schizophrenia F20.0 [facility] [address], [place] [address]- 3902 Jul, [facility] [address] [place] [address] 28506- 8638 Jul, Type 2 diabetes mellitus without complication, without long- term current use of insulin E11.9 ; Morbid obesity due to excess calories E66.01 ; Depression with anxiety F41.8 ; Hypothyroidism, unspecified type E03.9 ; Seasonal allergic rhinitis due to other allergic trigger J30.89 ; Pain, dental K08.89 and Gastroesophageal reflux disease without esophagitis K21.9 [facility] [address] [place] [address] [id number] 12 Jul, 2016 Dental examination Z01.20 [facility] [id number] [place] [address] 20168- 6801 07 Jul, 2016 Paranoid schizophrenia F20.0 [place] [id number] [place] [address] 18305- 7614 13 Jun, 2016 Paranoid schizophrenia F20.0 and Depression with anxiety F41.8 [place] [id number] [place] [address] 50406- 4444 10 Jun, 2016 Paranoid schizophrenia F20.0 and Depression with anxiety F41.8 [place] [id number] [place] [address] 68998- 0180 09 Jun, 2016 [place] [id number] [place] [address] 47815- 9035 Jun, [facility] [address] [place] [id number] [place] [address] 86215 -9069 Jun, Seasonal allergic rhinitis due to other allergic trigger J30.89 [facility] [id number] [place] [address] 70578 -3846 May, Sore throat J02.9 ; Other viral agents as the cause of diseases classified elsewhere B97.89 and Acute upper respiratory infection, unspecified J06.9 [place] [address] [place] [address] 10757- 3724 May, Paranoid schizophrenia F20.0 and Depression with anxiety F41.8 [place] [id number] [place] [address] 04889- 6354 Apr, Other seasonal allergic rhinitis J30.2 [place] [id number] [place] [address] 36013- 3561 Apr, Paranoid schizophrenia F20.0 and Depression with anxiety F41.8 [facility] [id number] [place] [address] 69243 -8013 Apr, Bronchitis J40 and Sore throat J02.9 [place] [id number] [place] [address] 31795- 1220 Apr, Type 2 diabetes mellitus without complication, without long- term current use of insulin E11.9 [facility] [id number] [place] [address] 41871 -2465 Apr, Bronchitis J40 [place] [address] 68004- 2651 Apr, [place] [address] 64066- 6813 Apr, [place] [address] 52977- 6154 Mar, Type 2 diabetes mellitus without complication, [...] R60.9 and Other seasonal allergic rhinitis J30.2 [place] [id number] [place] [address] 02219- 3550 Mar, Paranoid schizophrenia F20.0 and Depression with anxiety F41.8 [place] [id number] [place] [address] 35873- 3728 Feb, [place] [id number] [place] [address] 87520- 4790 Feb, [place] [id number] [place] [address] 23149- 3314 Feb, [place] [id number] [place] [address] 96875- 1453 14 Feb, 2016 [facility] [id number] [place] [address] 07293- 5471 Feb, Type 2 diabetes mellitus without complication, without long- term current use of insulin E11.9 ; ARIAS on CPAP G47.33 and Preoperative evaluation to rule out surgical contraindication Z01.818 [place] [id number] [place] [address] 28161- 7710 09 Feb, 2016 Paranoid schizophrenia F20.0 and Depression with anxiety F41.8 [place] [id number] [place] [address] 16734- 2841 Jan, [place] [id number] [place] [address] 74587- 7030 Jan, Paranoid schizophrenia F20.0 and Depression with anxiety F41.8 [place] [id number] [place] [address] 52946- 2787 Jan, [facility] [id number] [place] [address] 09313- 9667 Jan, Muscle strain T14.8 [facility] [id number] [place] [address] 08982- 1694 Jan, Paranoid schizophrenia F20.0 [facility] [id number] [place] [address] 46682- 6822 Jan, [facility] [id number] [place] [address] 84556- 3250 Jan, Paranoid schizophrenia F20.0 and Depression with anxiety F41.8 [facility] [id number] [place] [address] 78361- 3934 Jan, [facility] [id number] [place] [address] 21059- 5167 Jan, [facility] [id number] [place] [address] 47239- 2493 28 Dec, 2015 [facility] [address] [address]- 4588 23 Dec, 2015 Paranoid schizophrenia F20.0 [facility] [address] [address]- 2755 16 Dec, 2015 Paranoid schizophrenia F20.0 and Depression with anxiety F41.8 [facility] [id number] [place] [address] 10979- 6113 Nov, [facility] [address] [place] [address] 30323- 0851 Nov, Paranoid schizophrenia F20.0 [facility] [address] [place] [address] 02509- 0573 Nov, Paranoid schizophrenia F20.0 and Depression with anxiety F41.8 [facility] [address] [place] [address] 29787- 4765 Nov, Type 2 diabetes mellitus without complication, without long- term current use of insulin E11.9 ; Paranoid schizophrenia F20.0 ; Chronic obstructive pulmonary disease, unspecified COPD type J44.9 ; Morbid obesity due to excess calories E66.01 and Parkinsonian tremor G20 [facility] [address] [address]- 7220 Nov, [facility] [address] [address]- 4885 Oct, Paranoid schizophrenia F20.0 [facility] [address] [address]- 3925 Oct, Paranoid schizophrenia F20.0 [facility] [id number] [place] [address] 80267- 7550 Oct, Paranoid schizophrenia F20.0 and Depression with anxiety F41.8 [facility] [address] [address]- 4884 Oct, [facility] [id number] [place] [address] 89362- 6796 Oct, Paranoid schizophrenia F20.0 and Depression with anxiety F41.8 [place] [id number] [place] [address] 16966- 1834 Oct, Nasal sore J34.89 [place] [address] 87144- 9793 Oct, Type 2 diabetes mellitus without complication, without long- term current use of insulin E11.9 ; Depression with anxiety F41.8 ; Hypothyroidism, unspecified type E03.9 and History of lupus Z87.39 [place] [address] 81070- 9221 Oct, [place] [id number] [place] [address] 40632- 8906 Oct, Type 2 diabetes mellitus without complication, [...] edema R60.9 and History of lupus Z87.39 [place] [id number] [place] [address] 85612- 6565 Feb, [place] [id number] [place] [address] 81363- 2151 Jan, [place] [id number] [place] [address] 12678- 9765 Jan, [place] [id number] [place] [id number]- [id number] Jan, [place] [address] [address]- [address] Dec, [facility] [address] [id number] [place] [address] Nov, [facility] [address] [facility] [id number] [address] Nov, [facility] [address] [id number] [place] [address] Oct, [facility] [id number] [place] [address]- 1606 Oct, [facility] [address] [id number] [address] Oct, [facility] [id number] [address] Sep, [facility] rhinitis 477.9 [facility] [id number] [place] [address] 85992- 1663 Sep, Rhinitis, allergic 477.9 [facility] [address] [id number] [address] Sep, Rhinitis, allergic 477.9 [facility] [id number] [address] Sep, [facility] [id number] [address] August, [facility] [id number] [address] August, [facility] [address] [id number] [address] 277[address] August, [facility] [id number] [address] Jul, [facility] [address] [id number] [address] Jul, [facility] [id number], [place] [address] 13 Jul, 2014 [facility] [place] [facility] [address] [id number] [place] [address] 16 Jun, 2014 [facility] [place] [facility] [address] [id number] [place] [address] 4844 16 Jun, 2014 [facility] [place] [facility] [address] [id number] [place] [address] 8173 Jun, [facility] [place] [facility] [address] [id number] [place] [address] 8[address] Jun, [facility] [place] [facility] [address] [id number] [place] [address]- 9476 Jun, [facility] [place] [facility] [address] [id number] [place] [address] 4407 Jun, [facility] [place] [facility] [address] [facility] [id number] [place] [address]65 Jun, [facility] [place] [facility] [address] [id number] [place] [address] 2524 Jun, [facility] [place] [facility] [address] [id number] [place] [address] 4849 May, [facility] [place] [facility] [address] [facility] [id number] [place] [address]- 2958 May, [facility] [place] [facility] [address] [id number] [place] [address]- 9308 May, [facility] [place] [facility] [address] [id number], [place] [address] 5[address] May, [facility] [place] [facility] [address] [id number] [place] [address]- 2092 Apr, [facility] [place] [facility] [address] [id number] [place] [address] Mar, [facility] [place] [facility] [address] [facility] [id number] [place] [address] Mar, [facility] [place] [facility] [address] [id number] [place] [address]- 5347 Mar, [facility] [place] [facility] [address] [id number] [place] [address]- 5403 Mar, [facility] [place] [facility] [address] [id number] [place] [address] Mar, [facility] [place] [facility] [address] [id number] [place] [address]- 4528 Mar, [facility] [place] [facility] [address] [id number] [place] [address]- 4536 Mar, [facility] [place] [facility] [address] [id number] [place] [address]- 4968 Mar, [facility] [place] [facility] [address] [id number] [place] [address]- 0049 Mar, [facility] [place] [facility] [address] [id number] [place] [address]- 0254 Feb, [facility] [place] [facility] [address] [id number] [place] [address]- 7182 Feb, [facility] [place] [facility] [address] [id number] [place] [address]- 8587 Feb, [facility] [place] [facility] [address] [id number] [place] [address]- 0357 17 Feb, 2014 [facility] [place] [facility] [address] [id number] [place] [address]- 4423 Feb, [facility] [place] [facility] [address] [id number] [place] [address]- 9180 14 Feb, 2014 [facility] [place] [facility] [address] [id number] [place] [address]- 8010 Feb, [facility] [place] [facility] [address] [id number] [place] [address]- 1212 Feb, [facility] [place] [facility] [address] [id number] [place] [address]- 5799 23 Jan, 2014 [facility] [place] [facility] [address] [id number] [place] [address]- 0905 23 Jan, 2014 [facility] [place] [facility] [address] [id number] [place] [address]- 3992 16 Jan, 2014 [facility] [place] [facility] [address] [id number] [place] [address]- 7724 16 Jan, 2014 [facility] [place] [facility] [address] [id number] [place] [address]- 1538 15 Jan, 2014 [facility] [place] [facility] [address] [id number] [place] [address]- 7015 15 Jan, 2014 [facility] [place] [facility] [address] [id number] [place] [address]- 6878 14 Jan, 2014 [facility] [place] [facility] [address] [id number] [place] [address]- 7946 14 Jan, 2014 [facility] [place] [facility] [address] [id number] [place] [address]- 3780 14 Jan, 2014 [facility] [place] [facility] [address] [id number] [place] [address]- 1352 14 Jan, 2014 [facility] [place] [facility] [address] [id number] [place] [address]- 9544 18 Dec, 2013 [facility] [place] [facility] [address] [id number], [place] [address] 29[address] 18 Dec, 2013 [facility] [place] [facility] [address] [id number], [place] [address] 3[address] 10 Dec, 2013 [facility] [place] [facility] [address] [id number] [place] [address]- 5714 10 Dec, 2013 [facility] [place] [facility] [address] [id number] [place] [address]- 5954 Nov, [facility] [place] [facility] [address] [id number] [place] [address]- 8582 Nov, [facility] [place] [facility] [address] [id number] [place] [address]- 4136 Nov, [facility] [place] [facility] [address] [id number] [place] [address]- 2863 Nov, [facility] [place] [facility] [address] [id number] [place] [address]- 0570 Nov, [facility] [place] [facility] [address] [id number] [place] [address]- 1564 Oct, [facility] [place] [facility] [address] [id number] [place] [address]- 4201 Oct, [facility] [place] [facility] [address] [id number] [place] [address]- 7506 Oct, [facility] [place] [facility] [address] [id number] [place] [address]- 3025 Oct, [facility] [place] [facility] [address] [id number] [place] [address]- 2546 Sep, [facility] [place] [facility] [address] [id number] [place] [address]- 6798 Sep, [facility] [place] [facility] [address] [id number] [place] [address]- 4487 Sep, [facility] [place] [facility] [address] [id number] [place] [address]- 5300 Sep, [facility] [place] [facility] [address] [id number] [place] [address]- 6854 Sep, [facility] [place] [facility] [address] [id number] [place] [address]- 1087 Sep, [facility] [place] [facility] [address] [id number] [place] [address]- 7759 Sep, [facility] [place] [facility] [address] [id number] [place] [address]- 7767 Sep, [facility] [place] [facility] [address] [id number] [place] [address]- 3752 August, [facility] [place] [facility] [address] [id number] [place] [address]- 3592 August, [facility] [address] [id number] [place] [address]- 7490 August, [facility] [place] [facility] [address] [id number] [place] [address]- 8791 August, [facility] [place] [facility] [address] [id number] [place] [address]- 2847 August, [facility] [address] [id number] [place] [address]- 5596 August, [facility] [place] [facility] [address] [id number] [place] [address]- 2991 August, [facility] [address] [id number] [place] [address]- 5457 Jul, [facility] [place] [facility] [address] [id number] [place] [address]- 6073 Jul, [facility] [place] [facility] [address] [id number] [place] [address]- 6224 Jul, [facility] [place] [facility] [address] [id number] [place] [address]- 2504 Jul, [facility] [place] [facility] [address] [id number] [place] [address]- 8282 Jul, [facility] [place] [facility] [address] [id number] [place] [address]- 0576 Jul, [facility] [place] [facility] [address] [id number] [place] [address]- 4953 Jul, [facility] [place] [facility] [address] [id number] [place] [address]- 4275 Jul, [facility] [place] [facility] [address] [id number] [place] [address]- 6384 Jul, [facility] [place] [facility] [address] [id number], [place] [address]- 5208 Jul, [facility] [place] [facility] [address] [id number] [place] [address]- 4930 Jul, [facility] [place] [facility] [address] [id number] [place] [address]- 6210 Jul, [facility] [place] [facility] [address] [facility] [id number] [place] [address]- 8435 Jun, [facility] [place] [facility] [address] [id number] [place] [address]- 8238 Jun, [facility] [place] [facility] [address] [id number] [place] [address]- 8323 Jun, [facility] [place] [facility] [address] [facility] [id number] [place] [address]- 6877 Jun, [facility] [place] [facility] [address] [facility] [id number] [place] [address]- 3496 Jun, [facility] [place] [facility] [address] [facility] [id number] [place] [address]- 3826 May, [facility] [place] [facility] [address] [facility] [id number] [place] [address]- 3001 May, [facility] [place] [facility] [address] [facility] [id number] [place] [address]- 2761 May, [facility] [place] [facility] [address] [facility] [id number] [place] [address]- 3267 May, [facility] [place] [facility] [address] [facility] [id number], [place] [address]- 4622 May, [facility] [place] [facility] [address] [facility] [id number] [place] [address]- 7872 May, [facility] [place] [facility] [address] [facility] [id number], [place] [address]- 4097 May, [facility] [place] [facility] [address] [facility] [id number], [place] [address] May, [facility] [place] [facility] [address] [id number] [place] [address]- 3951 Mar, [facility] [place] [facility] [address] [id number] [place] [address]- 0862 Mar, [facility] [place] [facility] [address] [id number] [place] [address]- 4747 Mar, [facility] [place] [facility] [address] [id number] [place] [address]- 5949 Mar, [facility] [address] [id number] [place] [address]- 0287 Mar, [facility] [place] [facility] [address] [id number] [place] [address]- 8288 Mar, [facility] [address] [id number] [place] [address]- 9851 Feb, [facility] [place] [facility] [address] [id number] [place] [address]- 3501 Feb, [facility] [place] [facility] [address] [id number] [place] [address]- 4721 Jan, [facility] [place] [facility] [address] [id number], [place] [address]- 8190 Jan, [facility] [place] [facility] [address] [id number], [place] [address]- 5245 Jan, [facility] [place] [facility] [address] [id number], [place] [address]- 3228 Jan, [facility] [place] [facility] [address] [id number], [place] [address]- 5362 Jan, [facility] [place] [facility] [address] [id number] [place] [address]- 7032 Jan, [facility] [place] [facility] [address] [id number] 4265 Jan, [facility] [place] [facility] [address] [id number], [place] [address]- 0798 Jan, [facility] [place] [facility] [address] [id number] [place] [address]- 8698 Jan, [facility] [place] [facility] [address] [id number] [place] [address]- 7422 Jan, [facility] [place] [facility] [address] [id number] [place] [address]- 5795 Dec, [facility] [place] [facility] [address] [id number] [place] [address]- 7131 Nov, [facility] [place] [facility] [address] [id number] [place] [address]- 4171 Nov, [facility] [place] [facility] [address] [id number] [place] [address]- 7324 Nov, [facility] [place] [facility] [address] [id number] [place] [address]- 5941 Oct, [facility] [place] [facility] [address] [id number] [place] [address]- 6949 Oct, [facility] [place] [facility] [address] [id number] [place] [address]- 8946 August, [facility] [place] [facility] [address] [id number] [place] [address]- 7321 Apr, [facility] [place] [facility] [address] [id number] [place] [address]- 3012 Apr, [facility] [place] [facility] [address] [id number] [place] [address]- 3794 Feb, [facility] [place] [facility] [address] [id number] [place] [address]- 4571 Feb, [facility] [place] [facility] [address] [id number] [place] [address]- 9392 Dec, [facility] [place] [facility] [address] [id number] [place] [address]181 Dec, [facility] [place] [facility] [address] [id number] [place] [address]14 Oct, [facility] [address] [facility] [id number] [place] [address]- 7348 Oct, [facility] [address] [facility] [id number] [place] [address]- 2705 Oct, [facility] [address] [facility] [id number] [place] [address]- 9729 Jul, IMMUNIZATIONS Vaccine Route Administration Date Status INVEGA (PT'S OWN) IM Intramuscular Apr 06, 2017 Administered SOCIAL HISTORY Never Assessed REASON FOR VISIT Injection-Rowena CHO PLAN OF CARE Activity Details Follow Up 4 Weeks Reason: VITAL SIGNS MEDICATIONS Unknown Medications RESULTS No Results PROCEDURES Procedure Date Ordered Result Body Site INVEGA (PT'S OWN) Apr 06, 2017 THER/PROPH/DIAG INJ, SC/IM Apr 06, 2017 INSTRUCTIONS MEDICATIONS ADMINISTERED No Known [...] illness , last one in [facility] 4 years ago
--- OUTSIDE RECORDS SUMMARY | 2018-09-02 14:03 | XMS REPORT ---
Author Author UMESH PINEDA [facility] e[employer] Address Unknown Phone Unavailable Care Team Providers Care Senior Foreman Name Role Phone UMESH PINEDA CP Unavailable Allergies No Known Allergies Problems Problem Type Condition Code Onset Dates Condition Status Problem Hypothyroidism, unspecified type E03.9 Active Problem Depression with anxiety F41.8 Active Problem OAB (overactive bladder) N32.81 Active Problem Paranoid schizophrenia F20.0 Active Problem Morbid obesity due to excess calories E66.01 Active Problem Type 2 diabetes mellitus without complication, without long-term current use of insulin E11.9 Active Problem Gastroesophageal reflux disease, esophagitis presence not specified K21.9 Active Problem Chronic pain syndrome G89.4 Active Problem Chronic obstructive pulmonary disease, unspecified COPD type J44.9 Active Problem Other seasonal allergic rhinitis J30.2 Active Assessment Paranoid schizophrenia F20.0 Active Problem History of lupus Z87.39 Active Problem Peripheral edema R60.9 Active Assessment Depression with anxiety F41.8 Active Problem Parkinsonian tremor G20 Active Medications Medication Code System Code Instructions Start Date End Date Status Dosage Premarin [facility] 22075712796 0.625 MG/GM insert 0.5 gram by vaginal route twice weekly Mupirocin [facility] [address]-44 2 % Externally Three times a day Apr 20, 2014 1 Application by Nasal route 2 times per day to each nare--disp 22 gram tube Triamcinolone Acetonide [facility] 98557602675 0.5 % APPLY TOPICALLY TWICE DAILY Breo Ellipta [facility] [address]-15 100-25 mcg/dose Inhalation Once a day July 05, 2014 inhale 1 puff by inhalation route once daily at the same time each day Tizanidine HCl [facility] [address]-95 4 MG Orally 3 times a day 1 1/[address] [facility] [address]-53 25 MG Orally every 8 hrs 1 capsule as needed Loxapine Succinate [facility] [address]-38 25 MG Orally 4 times a day PRN 1 capsule Sertraline HCl [facility] [address]-22 100 MG Orally Once a day 1 tablet Pravastatin Sodium [facility] 55242724843 10 MG Orally Once a day [address] [facility] 07900454866 600 MG Orally Three times a day [address] [facility] 55828638711 10MG Orally Once a day [address] [facility] [address]-88 0.05 % November 15, 2012 instill 1 drop into affected eye(s) by ophthalmic route 2 times per day Claritin [facility] [address]-69 10 mg Orally Once a day 1 tablet Levothyroxine Sodium [facility] 43011454190 150 MCG Orally Once a day [address] [facility] [address]-14 50 mg Orally Once a day [address] [facility] [address]-37 5 mg Orally Once a day 1 tablet at bedtime Norvasc [facility] [address]-16 10 mg Orally Once a day [address] [facility] [address]-47 1,000 mg orally 2 times a day July 05, [address] [facility] 40898605585 40 mg Orally Once a day 1 capsule Trazodone HCl [facility] [address]-30 150 MG Orally Once a day 1 tablet at bedtime as needed Metformin HCl [facility] 75117721534 1000MG TAKE ONE TABLET BY MOUTH TWICE DAILY Invega Sustenna [facility] [address]-03 234 MG/1.5ML Intramuscular Once q monthly on the of each month [address] [facility] [address]-97 50 MG Orally Once a day 1 tablet Procedures Procedure Coding System Code Date THER/PROPH/DIAG INJ, SC/IM CPT-4 32750 Mar 04, 2016 [facility] VISIT ESTABLISHED PATIENT CPT-4 G0467 Mar 04, 2016 INVEGA (PT'S OWN) CPT-4 58732 Mar 04, 2016 Office Visit, Est Pt., Level 2 CPT-4 17996 Mar 04, 2016 Vital Signs Date/Time: Mar 04, 2016 Cardiac Monitoring Heart Rate 96 bpm Weight 214.7 lbs Height 57 in BMI 46.46 Index Blood Pressure Diastolic 72 mmHg Blood Pressure Systolic 118 mmHg Results No Known Results Summary Purpose eClinicalWorks Submission
--- OUTSIDE RECORDS SUMMARY | 2018-09-02 14:04 | XMS REPORT ---
Author Author KIRILL ELIZALDE [facility] Address [address] [place] [address] Care Team Providers Care Us [employer] Officer Name Role Phone KIRILL ELIZALDE Unavailable PROBLEMS Type Condition ICD9-CM Code IFC22-VK Code Onset Dates Condition Status SNOMED Code Problem Other seasonal allergic rhinitis J30.2 Active 998286203 Problem Gastroesophageal reflux disease, esophagitis presence not specified K21.9 Active 868375964 Problem Tobacco abuse Z72.0 Active 514191388 Problem Seasonal allergic rhinitis due to pollen J30.1 Active 60536931 Problem History of lupus Z87.39 Active 369555832 Problem COPD exacerbation J44.1 Active 835010592 Problem OAB (overactive bladder) N32.81 Active 705561639 Problem Morbid obesity due to excess calories E66.01 Active 178778361 Problem Dyslipidemia E78.5 Active 614319558 Problem Migraine without aura and without status migrainosus, not intractable G43.009 Active 354948646 Problem Hypothyroidism (acquired) E03.9 Active 435778490 Problem Essential hypertension I10 Active 68020430 Problem Type 2 diabetes mellitus without complication, without long-term current use of insulin E11.9 Active 693104504 Problem Gastroesophageal reflux disease without esophagitis K21.9 Active 326955349 Problem Chronic pain syndrome G89.4 Active 313192571 Problem Paranoid schizophrenia F20.0 Active 72564598 Problem Primary insomnia F51.01 Active 7624768 Problem DM neuro manif type II E11.49 Active 65195587 Problem Depression with anxiety F41.8 Active 991226002 Problem Seasonal allergic rhinitis due to other allergic trigger J30.89 Active 963126089 Problem Menopausal syndrome (hot flashes) N95.1 Active 612367678 Problem Chronic obstructive pulmonary disease, unspecified COPD type J44.9 Active 94657669 Problem Schizoaffective disorder, depressive type F25.1 Active 37263378 Problem Other allergic rhinitis J30.89 Active 490220947 ALLERGIES No Information ENCOUNTERS Encounter Location Date Diagnosis [facility] [id number] [place] [address] 37246- 5507 Nov, [facility] [id number] [place] [address] 60209- 3769 Oct, [facility] [id number] [place] [address] 26346- 3770 Oct, [facility] [id number] [place] [address] 31218- 1534 Oct, [facility] [id number] [place] [address] 12601- 6313 Sep, Paranoid schizophrenia F20.0 [facility] [id number] [place] [address] 53968- 2300 Sep, Paranoid schizophrenia F20.0 and BMI 45.0-49.9, adult Z68.42 [facility] [id number] [place] [address] 81515- 5901 Sep, Schizoaffective disorder, depressive type F25.1 [facility] [id number] [place] [address] 03213- 0847 Sep, [facility] [id number] [place] [address] 35884- 0911 Sep, Paranoid schizophrenia F20.0 [facility] [id number] [place] [address] 02337- 5949 Sep, [facility] [id number] [place] [address] 50977- 6858 Sep, Hypothyroidism (acquired) E03.9 [facility] [id number] [place] [address] 63468- 4284 Sep, [facility] [id number] [place] [address] 67525- 8722 August, Schizoaffective disorder, depressive type F25.1 [place] [id number] [place] [address] 31893- 9190 August, [facility] [id number] [place] [address] 66415- 1621 August, [facility] [id number] [place] [address] 96724- 9111 August, [place] [address] 54997- 3999 August, Paranoid schizophrenia F20.0 [place] [id number] [place] [address] 23218- 5648 August, History of lupus Z87.39 and Chronic pain syndrome G89.4 [place] [id number] [place] [address] 94722- 6496 August, [facility] [address] 75887 -9804 August, Seasonal allergic rhinitis, unspecified trigger J30.2 and BMI 45.0-49.9, adult Z68.42 [place] [id number] [place] [address] 15501- 8343 Jul, Schizoaffective disorder, depressive type F25.1 [place] [id number] [place] [address] 34974- 8453 Jul, [place] [id number] [place] [address] 56926- 1682 Jul, Hypothyroidism (acquired) E03.9 [place] [id number] [place] [address] 85693- 9852 Jul, Chronic obstructive pulmonary disease, unspecified COPD type J44.9 and Type 2 diabetes mellitus without complication, without long-term current use of insulin E11.9 [place] [id number] [place] [address] 28133- 3219 Jul, Paranoid schizophrenia F20.0 [place] [address] [id number] [place] [address] 18022- 8247 Jun, Hypothyroidism (acquired) E03.9 and Seasonal allergic rhinitis due to pollen J30.1 [facility] [address] 54267 -2714 Jun, Shortness of breath at rest R06.02 ; COPD exacerbation J44.1 and BMI 45.0-49.9, adult Z68.42 [place] [address] 91610- 4759 Jun, [place] [address] 63265- 9005 Jun, Paranoid schizophrenia F20.0 ; Depression with anxiety F41.8 and BMI 45.0-49.9, adult Z68.42 [facility] [address] 14686- 4199 Jun, Schizoaffective disorder, depressive type F25.1 [facility] [address] [id number] Jun, Dental caries K02.9 [place] [address] 91644- 4809 Jun, Paranoid schizophrenia F20.0 [facility] [address] 34287- 8125 May, Migraine without aura and without status migrainosus, not intractable G43.009 ; DM neuro manif type II E11.49 and Type 2 diabetes mellitus without complication, without long-term current use of insulin E11.9 [facility] [address] 59971- 6495 May, Migraine without aura and without status migrainosus, not intractable G43.009 [place] [address] 81671- 8047 May, Depression with anxiety F41.8 [facility] [address] [place] [address] [id number] May, [facility] [id number] [place] [address] 66190- 0171 May, [facility] [id number] [place] [address] 65031- 1658 May, [facility] [id number] [place] [address] 10680- 0933 May, Hypothyroidism (acquired) E03.9 [place] [id number] [place] [address] 06041- 6716 May, Paranoid schizophrenia F20.0 [place] [address] 49329- 9638 May, Type 2 diabetes mellitus without complication, [...] N32.81 and Controlled substance agreement signed Z79.899 [place] [id number] [place] [address] 55827- 0922 May, Controlled substance agreement signed Z79.899 [place] [id number] [place] [address] 87393- 8617 Apr, [facility] [address] [id number] Apr, Dental examination Z01.20 [place] [id number] [place] [address] 78519- 5158 Apr, Paranoid schizophrenia F20.0 [facility] [id number] [place] [address] 03255- 4551 Apr, Hypertension, unspecified type I10 [facility] [id number] [place] [address] 78811- 7925 Apr, Paranoid schizophrenia F20.0 [facility] [address] 11509- 8045 Apr, [facility] [address] 41966- 5064 Apr, Tobacco abuse Z72.0 [place] [address] 95913- 0316 Apr, [facility] [id number] [place] [address] 09271- 3555 Mar, [facility] [address] 03512- 5132 Mar, Paranoid schizophrenia F20.0 and BMI 45.0-49.9, adult Z68.42 [place] [id number] [place] [address] 09770- 6017 Mar, Schizoaffective disorder, depressive type F25.1 [place] [id number] [place] [address] 70526- 9002 Mar, [facility] [id number] [place] [address] 24954- 3600 Mar, Schizoaffective disorder, depressive type F25.1 [facility] [id number] [place] [address] 07074- 1423 Mar, Hypothyroidism, unspecified type E03.9 [facility] [id number] [place] [address] 63878 -6087 Feb, Gastroenteritis K52.9 and BMI 45.0-49.9, adult Z68.42 [facility] [id number] [place] [address] 02374- 3939 Feb, [place] [id number] [place] [address] 71350- 1677 Feb, [place] [address] 75011- 2626 Feb, [place] [address] 07477- 5368 Feb, [place] [address] 78308- 8391 Feb, Paranoid schizophrenia F20.[address] 09876- 3684 Feb, Gastroesophageal reflux disease without esophagitis K21.9 ; Other seasonal allergic rhinitis J30.2 ; Other allergic rhinitis J30.89 ; Tobacco abuse Z72.0 and BMI 40.0-44.9, adult Z68.41 [place] [address] 79922- 7208 Feb, Onychomycosis B35.1 ; Callus of foot L84 and DM neuro manif type II E11.49 [place] [id number] [place] [address] 80109- 4355 Jan, Chronic allergic rhinitis J30.9 [place] [address] 76093- 5496 Jan, [place] [address] 45675- 5413 Jan, Schizoaffective disorder, depressive type F25.1 [place] [address] 44002- 2644 Jan, [facility] [place] [address] 81941 -3389 Jan, Sore throat J02.9 and Seasonal allergic rhinitis due to other allergic trigger J30.89 [place] [address] 89256- 7900 Jan, [facility] [id number] [place] [address] 46722- 8910 Jan, [facility] [id number] [place] [address] 78699 -9326 Jan, Chronic allergic rhinitis J30.9 [facility] [id number] [place] [address] 22151- 0663 Dec, Paranoid schizophrenia F20.0 ; Primary insomnia F51.01 and Schizoaffective disorder, depressive type F25.1 [facility] [id number] [place] [address] 01487- 3241 Dec, Chronic pain syndrome G89.4 ; Cervicalgia of occipito- atlanto-axial region M54.2 ; Menopausal syndrome (hot flashes) N95.1 and Encounter for immunization Z23 [facility] [id number] [place] [address] 99381- 1008 14 Dec, 2016 [facility] [id number] [place] [address] 49741- 8365 Dec, [facility] [id number] [place] [address] 23740- 4034 Dec, Paranoid schizophrenia F20.0 [facility] [id number] [place] [address] 09273- 5890 Dec, Schizoaffective disorder, depressive type F25.1 [facility] [id number] [place] [address] 57672- 5712 Nov, Hypothyroidism, unspecified type E03.9 [facility] [id number] [place] [address] 44764 -8037 Nov, Acute seasonal allergic rhinitis due to other allergen J30.89 [facility] [id number] [place] [address] 80070- 7524 Nov, [facility] [address] [place] [address]- 6004 Nov, Hypothyroidism, unspecified type E03.9 and Other elevated white blood cell (WBC) count D72.828 [place] [id number] [place] [address] 80451- 4584 Nov, Schizoaffective disorder, depressive type F25.1 [place] [id number] [place] [address] 90446- 7753 Nov, Paranoid schizophrenia F20.0 [place] [id number] [place] [address] 97028- 5998 Nov, Type 2 diabetes mellitus without complication, without long- term current use of insulin E11.9 ; Morbid obesity due to excess calories E66.01 and Chronic pain syndrome G89.4 [place] [id number] [place] [address] 13236- 7159 Oct, Paranoid schizophrenia F20.0 [place] [id number] [place] [address] 62708- 8748 Oct, [place] [id number] [place] [address] 73946- 0913 Oct, Schizoaffective disorder, depressive type F25.1 [place] [id number] [place] [address] 20710- 0419 Oct, Hypothyroidism, unspecified type E03.9 and Other elevated white blood cell (WBC) count D72.828 [place] [id number] [place] [address] 38941- 4135 Oct, Morbid obesity due to excess calories E66.01 ; Chronic obstructive pulmonary disease, unspecified COPD type J44.9 ; History of lupus Z87.39 ; Hypothyroidism, unspecified type E03.9 ; Gastroesophageal reflux disease without esophagitis K21.9 ; Primary insomnia F51.01 and Chronic pain syndrome G89.4 [place] [id number] [place] [address] 56476- 5540 Sep, [place] [address] [address]- 6028 Sep, [facility] [address] [address]- 4208 Sep, [facility] [address] [address]- 9441 Sep, Paranoid schizophrenia F20.0 [facility] [address] [address]- 2681 Sep, [facility] [address] [address]- 4465 Sep, Paranoid schizophrenia F20.0 [facility] [address] [address]- 3359 Sep, [facility] [id number] [place] [address] 98042- 0263 August, Paranoid schizophrenia F20.0 [facility] [address] [address]- 3384 Jul, [facility] [address] [place] [address] 83050- 1508 Jul, Type 2 diabetes mellitus without complication, without long- term current use of insulin E11.9 ; Morbid obesity due to excess calories E66.01 ; Depression with anxiety F41.8 ; Hypothyroidism, unspecified type E03.9 ; Seasonal allergic rhinitis due to other allergic trigger J30.89 ; Pain, dental K08.89 and Gastroesophageal reflux disease without esophagitis K21.9 [facility] [address] [address] 12 Jul, 2016 Dental examination Z01.20 [facility] [address] [address]- 5121 07 Jul, 2016 Paranoid schizophrenia F20.0 [facility] [address] [address]- 7351 Jun, Paranoid schizophrenia F20.0 and Depression with anxiety F41.8 [place] [id number] [place] [address] 62925- 5579 10 Jun, 2016 Paranoid schizophrenia F20.0 and Depression with anxiety F41.8 [place] [id number] [place] [address] 28579- 2437 09 Jun, 2016 [place] [address] 37996- 6867 Jun, [facility] [place] [address] 87116 -4630 Jun, Seasonal allergic rhinitis due to other allergic trigger J30.89 [facility] [place] [id number] [place] [address] 85335 -3087 25 May, 2016 Sore throat J02.9 ; Other viral agents as the cause of diseases classified elsewhere B97.89 and Acute upper respiratory infection, unspecified J06.9 [place] [id number] [place] [address] 09980- 2315 May, Paranoid schizophrenia F20.0 and Depression with anxiety F41.8 [place] [id number] [place] [address] 20148- 0241 Apr, Other seasonal allergic rhinitis J30.2 [place] [id number] [place] [address] 22844- 7224 Apr, Paranoid schizophrenia F20.0 and Depression with anxiety F41.8 [facility] [place] [id number] [place] [address] 24974 -2791 Apr, Bronchitis J40 and Sore throat J02.9 [place] [id number] [place] [address] 18237- 1369 Apr, Type 2 diabetes mellitus without complication, without long- term current use of insulin E11.9 [facility] [id number] [place] [address] 96908 -6022 Apr, Bronchitis J40 [address] [address]- 4002 Apr, [place] [id number] [place] [address] 08885- 6555 Apr, [place] [id number] [place] [address] 91858- 7325 Mar, Type 2 diabetes mellitus without complication, [...] R60.9 and Other seasonal allergic rhinitis J30.2 [place] [id number] [place] [address] 64064- 9103 Mar, Paranoid schizophrenia F20.0 and Depression with anxiety F41.8 [place] [id number] [place] [address] 60361- 9692 Feb, [place] [id number] [place] [address] 94412- 6336 Feb, [place] [id number] [place] [address] 13066- 2535 Feb, [place] [id number] [place] [address] 37805- 3482 Feb, [place] [id number] [place] [address] 29863- 8554 Feb, Type 2 diabetes mellitus without complication, without long- term current use of insulin E11.9 ; ARIAS on CPAP G47.33 and Preoperative evaluation to rule out surgical contraindication Z01.818 [place] [address] [place] [address] 37321- 9252 Feb, Paranoid schizophrenia F20.0 and Depression with anxiety F41.8 [place] [address] [facility] [id number] [address]- 5485 Jan, [facility] [id number] [place] [address] 85386- 8958 Jan, Paranoid schizophrenia F20.0 and Depression with anxiety F41.8 [facility] [id number] [address]- 7520 17 Jan, 2016 [facility] [address] [facility] [id number] [place] [address] 38787- 8215 14 Jan, 2016 Muscle strain T14.8 [facility] [id number] [place] [address] 11657- 5170 10 Jan, 2016 Paranoid schizophrenia F20.0 [facility] [id number] [address]- 6343 07 Jan, 2016 [facility] [id number] [place] [address] 43079- 6748 Jan, Paranoid schizophrenia F20.0 and Depression with anxiety F41.8 [facility] [id number] [address]- 8984 Jan, [facility] [id number] [place] [address] 82737- 9426 Jan, [facility] [id number] [address]- 1409 28 Dec, 2015 [facility] [id number] [address]- 0751 23 Dec, 2015 Paranoid schizophrenia F20.0 [facility] [address] [facility] [id number] [address]- 7339 16 Dec, 2015 Paranoid schizophrenia F20.0 and Depression with anxiety F41.8 [facility] [address] [facility] [id number] [address]- 4070 31 Nov, 2015 [facility] [id number] [address]- 9252 Nov, Paranoid schizophrenia F20.0 [place] [id number] [place] [address] 73104- 3683 Nov, Paranoid schizophrenia F20.0 and Depression with anxiety F41.8 [place] [id number] [place] [address] 19882- 8243 Nov, Type 2 diabetes mellitus without complication, without long- term current use of insulin E11.9 ; Paranoid schizophrenia F20.0 ; Chronic obstructive pulmonary disease, unspecified COPD type J44.9 ; Morbid obesity due to excess calories E66.01 and Parkinsonian tremor G20 [place] [id number] [place] [address] 81685- 6231 Nov, [place] [id number] [place] [address] 96259- 1678 Oct, Paranoid schizophrenia F20.0 [place] [id number] [place] [address] 10289- 1753 Oct, Paranoid schizophrenia F20.0 [place] [id number] [place] [address] 01909- 2183 Oct, Paranoid schizophrenia F20.0 and Depression with anxiety F41.8 [place] [id number] [place] [address] 56288- 8726 Oct, [place] [id number] [place] [address] 83073- 6643 Oct, Paranoid schizophrenia F20.0 and Depression with anxiety F41.8 [place] [id number] [place] [address] 83650- 2867 Oct, Nasal sore J34.89 [place] [id number] [place] [address] 63498- 1303 Oct, Type 2 diabetes mellitus without complication, without long- term current use of insulin E11.9 ; Depression with anxiety F41.8 ; Hypothyroidism, unspecified type E03.9 and History of lupus Z87.39 [facility] [id number] [place] [address] 68348- 2480 Oct, [facility] [id number] [place] [address] 27707- 2346 Oct, Type 2 diabetes mellitus without complication, [...] edema R60.9 and History of lupus Z87.39 [facility] [id number] [place] [address] 81838524- 2307 Feb, [facility] [id number] [place] [address] 42225- 8981 Jan, [facility] [id number] [place] [address] 68094- 3907 Jan, [facility] [id number] [place] [address] 83515604- 9460 Jan, [facility] [id number] [place] [address] 13278- 4076 Dec, [facility] [id number] [place] [address] 11988- 0425 Nov, [facility] [id number] [place] [address] 73511- 8226 Nov, [facility] [address] 60542- 6976 Oct, [facility] [id number] [place] [address] 70197- 4022 Oct, [facility] [address] [place] [address]- 4615 17 Oct, 2014 [facility] [address] [facility] [id number] [address] Sep, Allergic rhinitis 477.9 [facility] [address] [id number] [place] [address] 11 Sep, 2014 Rhinitis, allergic 477.9 [facility] [id number] [place] [address] Sep, Rhinitis, allergic 477.9 [facility] [address] [id number] [place] [address] Sep, [facility] [id number] [address] August, [facility] [id number], [place] [address] August, [facility] [id number] [address] August, [facility] [id number] [place] [address] Jul, [facility] [id number] [address] Jul, [facility] [id number] [address] Jul, [facility] [place] [facility] [address] [id number] [address] Jun, [facility] [place] [facility] [address] [id number] [place] [address] 16 Jun, 2014 [facility] [place] [facility] [id number] [address] Jun, [facility] [place] [facility] [address] [id number] [place] [address] Jun, [facility] [address] [id number] [place] [address] 11 Jun, 2014 [facility] [place] [facility] [address] [id number] [place] [address] Jun, 2014 [facility] [place] [facility] [address] [id number] [place] [address]- 9274 Jun, 2014 [facility] [place] [facility] [address] [id number] [place] [address]- 3366 Jun, 2014 [facility] [place] [facility] [address] [id number] [place] [address] 7940 May, 2014 [facility] [place] [facility] [address] [id number] [place] [address]- 0279 May, 2014 [facility] [place] [facility] [address] [facility] [id number] [place] [address]- 0453 May, 2014 [facility] [place] [facility] [address] [facility] [id number] [place] [address]- 4037 May, 2014 [facility] [place] [facility] [address] [id number] [place] [address]- 8513 Apr, [facility] [place] [facility] [address] [facility] [id number] [place] [address]- 1035 Mar, [facility] [place] [facility] [address] [facility] [id number] [place] [address]- 7[address] Mar, [facility] [place] [facility] [address] [id number] [place] [address]- 8460 Mar, [facility] [place] [facility] [address] [id number] [place] [address]- 4040 Mar, [facility] [place] [facility] [address] [id number] [place] [address]- 1534 Mar, [facility] [place] [facility] [address] [facility] [id number] [place] [address]- 0596 Mar, [facility] [place] [facility] [address] [facility] [id number] [place] [address]- 3345 Mar, [facility] [place] [facility] [address] [id number] [place] [address]- 1137 Mar, [facility] [place] [facility] [address] [id number] [place] [address]- 6684 Mar, [facility] [place] [facility] [address] [id number] [place] [address]- 8450 Feb, [facility] [place] [facility] [address] [id number] [place] [address]- 6846 Feb, [facility] [place] [facility] [address] [id number] [place] [address]- 0475 Feb, [facility] [place] [facility] [address] [id number] [place] [address]- 9048 Feb, [facility] [place] [facility] [address] [id number] [place] [address]- 5026 Feb, [facility] [place] [facility] [address] [id number] [place] [address]- 6154 Feb, [facility] [place] [facility] [address] [id number] [place] [address]- 8499 Feb, [facility] [place] [facility] [address] [id number] [place] [address]- 1076 Feb, [facility] [place] [facility] [address] [id number] [place] [address]- 0386 Jan, [facility] [place] [facility] [address] [id number] [address] Jan, [facility] [place] [facility] [address] [id number] [place] [address]- 4527 Jan, [facility] [place] [facility] [address] [id number] [place] [address]- 4436 16 Jan, 2014 [facility] [place] [facility] [address] [id number] [address] 8[address] 15 Jan, 2014 [facility] [place] [facility] [address] [id number] [place] [address]- 4[address] 15 Jan, 2014 [facility] [place] [facility] [address] [id number] [place] [address]- 4311 14 Jan, 2014 [facility] [place] [facility] [address] [id number] [place] [address]- 5811 14 Jan, 2014 [facility] [place] [facility] [address] [id number] [place] [address]- 7440 14 Jan, 2014 [facility] [place] [facility] [address] [id number] [place] [address]- 7742 14 Jan, 2014 [facility] [place] [facility] [address] [id number] [place] [address]- 1113 18 Dec, 2013 [facility] [place] [facility] [address] [id number] [place] [address]- 7159 18 Dec, 2013 [facility] [place] [facility] [address] [id number] [place] [address]- 5140 10 Dec, 2013 [facility] [place] [facility] [address] [id number] [place] [address]- 4538 10 Dec, 2013 [facility] [place] [facility] [address] [id number] [place] [address]- 9263 Nov, [facility] [place] [facility] [address] [id number] [place] [address]- 4797 Nov, [facility] [place] [facility] [address] [id number] [place] [address]- 4676 Nov, [facility] [place] [facility] [address] [id number] [place] [address]- 2799 Nov, [facility] [place] [facility] [address] [id number] [place] [address]- 5696 Nov, [facility] [place] [facility] [address] [id number] [place] [address]- 8693 Oct, [facility] [place] [facility] [address] [id number] [place] [address]- 2001 Oct, [facility] [place] [facility] [address] [id number] [place] [address]- 1307 Oct, [facility] [place] [facility] [address] [id number] [place] [address]- 3323 Oct, [facility] [place] [facility] [address] [id number] [place] [address]- 1105 Sep, [facility] [place] [facility] [address] [id number] [place] [address]- 5766 Sep, [facility] [place] [facility] [address] [id number] [place] [address]- 3695 Sep, [facility] [place] [facility] [address] [id number] [place] [address]- 4347 Sep, [facility] [place] [facility] [address] [id number] [place] [address]- 1409 Sep, [facility] [place] [facility] [address] [id number] [place] [address]- 1060 Sep, [facility] [place] [facility] [address] [id number] [place] [address]- 2523 Sep, [facility] [place] [facility] [address] [id number] [place] [address]- 4730 Sep, [facility] [place] [facility] [address] [id number] [place] [address]- 5262 August, [facility] [place] [facility] [address] [id number] [place] [address]- 2519 August, [facility] [place] [facility] [address] [id number] [place] [address]- 7622 August, [facility] [place] [facility] [address] [id number] [place] [address]- 3292 August, [facility] [place] [facility] [address] [id number] [place] [address]- 5795 August, [facility] [place] [facility] [address] [id number] [place] [address]- 0906 August, [facility] [place] [facility] [address] [id number] [place] [address]- 6400 August, [facility] [place] [facility] [address] [id number] [place] [address]- 5669 Jul, [facility] [place] [facility] [address] [id number] [place] [address]- 8153 Jul, [facility] [place] [facility] [address] [id number] [place] [address]- 9132 Jul, [facility] [place] [facility] [address] [id number] [place] [address]- 2799 Jul, [facility] [place] [facility] [address] [id number] [place] [address]- 9631 Jul, [facility] [place] [facility] [address] [id number] [place] [address]- 4409 Jul, [facility] [place] [facility] [address] [id number] [place] [address]- 2334 Jul, [facility] [place] [facility] [address] [id number] [place] [address]- 5046 Jul, [facility] [place] [facility] [address] [id number] [place] [address]- 6849 Jul, [facility] [place] [facility] [address] [id number] [place] [address]- 6610 Jul, [facility] [place] [facility] [address] [id number] [place] [address]- 0895 Jul, [facility] [place] [facility] [address] [id number] [place] [address]- 6168 Jul, [facility] [place] [facility] [address] [id number] [place] [address]- 3137 Jun, [facility] [place] [facility] [address] [id number] [place] [address] Jun, [facility] [place] [facility] [address] [id number] [place] [address]- 3325 Jun, [facility] [place] [facility] [address] [id number] [place] [address]- 6762 Jun, [facility] [place] [facility] [address] [id number] [place] [address]- 3153 Jun, [facility] [place] [facility] [address] [id number] [place] [address]- 7271 May, [facility] [place] [facility] [address] [id number] [place] [address]- 3168 May, [facility] [place] [facility] [address] [id number] [place] [address]- 3061 May, [facility] [place] [facility] [address] [id number] [place] [address]- 2746 May, [facility] [place] [facility] [address] [facility] [id number] [place] [address]- 8365 May, [facility] [place] [facility] [address] [id number] [place] [address]- 2178 May, [facility] [place] [facility] [address] [facility] [id number] [place] [address]- 8463 May, [facility] [place] [facility] [address] [facility] [id number] [place] [address]- 4421 May, [facility] [place] [facility] [address] [facility] [id number] [place] [address]- 2172 Mar, [facility] [place] [facility] [address] [id number] [place] [address]- 9359 Mar, [facility] [place] [facility] [address] [id number] [place] [address]- 4980 Mar, [facility] [place] [facility] [address] [facility] [id number] [place] [address]- 7705 Mar, [facility] [place] [facility] [address] [facility] [id number] [place] [address] Mar, [facility] [place] [facility] [address] [id number] [place] [address]- 1632 Mar, [facility] [place] [facility] [address] [id number] [place] [address]- 3613 Feb, [facility] [place] [facility] [address] [id number] [place] [address]- 8051 Feb, [facility] [place] [facility] [address] [id number] [place] [address]- 5879 Jan, [facility] [place] [facility] [address] [id number] [place] [address]- 9555 Jan, [facility] [place] [facility] [address] [id number] [place] [address]- 4404 Jan, [facility] [place] [facility] [address] [id number] [place] [address]- 3572 Jan, [facility] [place] [facility] [address] [id number] [place] [address]- 7997 Jan, [facility] [place] [facility] [address] [id number] [place] [address]- 7307 Jan, [facility] [place] [facility] [address] [id number] [place] [address]- 9660 Jan, [facility] [place] [facility] [address] [id number] [place] [address]- 0303 Jan, [facility] [place] [facility] [address] [id number] [place] [address]- 5764 08 Jan, 2013 [facility] [place] [facility] [address] [id number] [place] [address]- 3894 Jan, [facility] [place] [facility] [address] [id number] [place] [address]- 4901 16 Dec, 2012 [facility] [place] [facility] [address] [id number] [place] [address]- 3913 Nov, [facility] [place] [facility] [address] [id number] [address]- 1376 Nov, [facility] [address] [facility] [id number] [place] [address]- 5071 Nov, [facility] [address] [facility] [id number] [place] [address]- 7716 Oct, [facility] [address] [facility] [id number] [place] [address]- 3216 Oct, [facility] [address] [facility] [id number] [place] [address]- 4071 August, [facility] [address] [facility] [id number] [place] [address]- 4675 Apr, [facility] [address] [facility] [id number] [place] [address]- 3869 Apr, [facility] [id number] [address] Feb, [facility] [id number] [address]- 8993 Feb, [facility] [id number] [address] Dec, [facility] [address] [id number] [address]- 5516 Dec, [facility] [address] [id number] [address]- 9647 Oct, [facility] [address] [id number] [address]- 5308 Oct, [facility] [address] [id number] [address]- 7454 Oct, [facility] [address] [id number] [address] Jul, IMMUNIZATIONS No Known Immunizations SOCIAL HISTORY Never Assessed REASON FOR VISIT Rx refill PLAN OF CARE VITAL SIGNS MEDICATIONS Medication Instructions Dosage Frequency Start Date End Date Duration Status Clindamycin HCl 150 MG Orally every 8 hrs 2 capsules 8h May,Jun 5 day(s) Active RESULTS No Results PROCEDURES No [...] illness , last one in [facility] 4 years ago
--- OUTSIDE RECORDS SUMMARY | 2018-09-02 14:04 | XMS REPORT ---
Author Author STRICKLANDSOTO Carias Organization [facility] Address [address] [place] [address] Care Team Providers Care Pad Machine Feeder Name Role Phone SOTO STRICKLAND Unavailable PROBLEMS Type Condition ICD9-CM Code FOR57-VS Code Onset Dates Condition Status SNOMED Code Problem Other seasonal allergic rhinitis J30.2 Active 441992503 Problem Gastroesophageal reflux disease, esophagitis presence not specified K21.9 Active 186921826 Problem Tobacco abuse Z72.0 Active 428912138 Problem Seasonal allergic rhinitis due to pollen J30.1 Active 76150478 Problem History of lupus Z87.39 Active 273363080 Problem COPD exacerbation J44.1 Active 777615947 Problem OAB (overactive bladder) N32.81 Active 677712707 Problem Morbid obesity due to excess calories E66.01 Active 501308503 Problem Dyslipidemia E78.5 Active 267788710 Problem Migraine without aura and without status migrainosus, not intractable G43.009 Active 574230424 Problem Hypothyroidism (acquired) E03.9 Active 738815949 Problem Essential hypertension I10 Active 29552006 Problem Type 2 diabetes mellitus without complication, without long-term current use of insulin E11.9 Active 410927373 Problem Gastroesophageal reflux disease without esophagitis K21.9 Active 469981375 Problem Chronic pain syndrome G89.4 Active 613445118 Problem Paranoid schizophrenia F20.0 Active 04519069 Problem Primary insomnia F51.01 Active 1906106 Problem DM neuro manif type II E11.49 Active 54542752 Problem Depression with anxiety F41.8 Active 637649128 Problem Seasonal allergic rhinitis due to other allergic trigger J30.89 Active 583730727 Problem Menopausal syndrome (hot flashes) N95.1 Active 882401370 Problem Chronic obstructive pulmonary disease, unspecified COPD type J44.9 Active 41792790 Problem Schizoaffective disorder, depressive type F25.1 Active 47425026 Problem Other allergic rhinitis J30.89 Active 675075013 ALLERGIES No Information ENCOUNTERS Encounter Location Date Diagnosis [facility] [id number] [address] Nov, [facility] [id number] [place] [address] 66726- 7482 Oct, [facility] [id number] [place] [address] 84084- 2427 Oct, [facility] [id number] [place] [address] 96712- 6764 Oct, [facility] [id number] [place] [address] 16892- 9614 Sep, Paranoid schizophrenia F20.0 [facility] [id number] [place] [address] 18309- 4970 Sep, Paranoid schizophrenia F20.0 and BMI 45.0-49.9, adult Z68.42 [facility] [id number] [place] [address] 67464- 8874 Sep, Schizoaffective disorder, depressive type F25.1 [facility] [id number] [place] [address] 35538- 2995 Sep, [facility] [id number] [place] [address] 46351- 5099 Sep, Paranoid schizophrenia F20.0 [facility] [id number] [place] [address] 23044- 0830 Sep, [facility] [id number] [place] [address] 89011- 9792 Sep, Hypothyroidism (acquired) E03.9 [facility] [id number] [place] [address] 82782- 8260 Sep, [facility] [id number] [place] [address] 40351- 3464 August, Schizoaffective disorder, depressive type F25.1 [facility] [id number] [place] [address] 03137- 7573 August, [facility] [address] 05421- 4513 August, [facility] [id number] [place] [address] 52991- 7738 August, [facility] [address] 91588- 0633 August, Paranoid schizophrenia F20.0 [facility] [id number] [place] [address] 32040- 3159 August, History of lupus Z87.39 and Chronic pain syndrome G89.4 [place] [address] 93712- 3398 August, [facility] [address] 40416 -4825 August, Seasonal allergic rhinitis, unspecified trigger J30.2 and BMI 45.0-49.9, adult Z68.42 [place] [address] 43421- 2606 Jul, Schizoaffective disorder, depressive type F25.1 [place] [id number] [place] [address] 24260- 6771 Jul, [place] [address] 26767- 7170 Jul, Hypothyroidism (acquired) E03.9 [place] [id number] [place] [address] 38329- 6114 Jul, Chronic obstructive pulmonary disease, unspecified COPD type J44.9 and Type 2 diabetes mellitus without complication, without long-term current use of insulin E11.9 [place] [id number] [place] [address] 35665- 8926 Jul, Paranoid schizophrenia F20.0 [place] [address] 21126- 6856 Jun, Hypothyroidism (acquired) E03.9 and Seasonal allergic rhinitis due to pollen J30.1 [facility] [address] 55231 -2058 Jun, Shortness of breath at rest R06.02 ; COPD exacerbation J44.1 and BMI 45.0-49.9, adult Z68.42 [facility] [address] 87511- 6653 Jun, [facility] [address] 49841- 1556 Jun, Paranoid schizophrenia F20.0 ; Depression with anxiety F41.8 and BMI 45.0-49.9, adult Z68.42 [facility] [address] 37558- 5080 20 Jun, 2017 Schizoaffective disorder, depressive type F25.1 [facility] [address] [id number] Jun, Dental caries K02.9 [facility] [address] 59674- 8975 Jun, Paranoid schizophrenia F20.0 [facility] [address] 54430- 4868 May, Migraine without aura and without status migrainosus, not intractable G43.009 ; DM neuro manif type II E11.49 and Type 2 diabetes mellitus without complication, without long-term current use of insulin E11.9 [facility] [address] 83295- 8315 May, Migraine without aura and without status migrainosus, not intractable G43.009 [facility] [address] 37114- 7479 May, Depression with anxiety F41.8 [facility] [address] [id number] May, [facility] [address] [address] 3294 May, [place] [id number] [place] [address] 51722- 2283 May, [facility] [address] [place] [address] 96640- 3919 May, Hypothyroidism (acquired) E03.9 [place] [address] [place] [address] 15488- 0392 May, Paranoid schizophrenia F20.0 [place] [id number] [place] [address] 14260- 2228 May, Type 2 diabetes mellitus without complication, [...] N32.81 and Controlled substance agreement signed Z79.899 [place] [address] [place] [address] 81333- 4625 May, Controlled substance agreement signed Z79.899 [place] [address] [address] 3948 Apr, [facility] [id number] [place] [address] [id number] Apr, Dental examination Z01.20 [place] [address] [place] [address] 49353- 8899 Apr, Paranoid schizophrenia F20.0 [place] [address] [place] [address] 23543- 5960 Apr, Hypertension, unspecified type I10 [facility] [id number] [place] [address] 92841- 2106 Apr, Paranoid schizophrenia F20.0 [facility] [id number] [place] [address] 00338- 2770 Apr, [facility] [id number] [place] [address] 92345- 2264 Apr, Tobacco abuse Z72.0 [place] [id number] [place] [address] 01700- 2082 Apr, [facility] [id number] [place] [address] 45907- 7089 Mar, [place] [id number] [place] [address] 58958- 7827 Mar, Paranoid schizophrenia F20.0 and BMI 45.0-49.9, adult Z68.42 [place] [id number] [place] [address] 52491- 5315 Mar, Schizoaffective disorder, depressive type F25.1 [place] [id number] [place] [address] 70120- 5751 Mar, [facility] [id number] [place] [address] 46639- 1604 Mar, Hypothyroidism, unspecified type E03.9 [facility] [id number] [place] [address] 36433- 6355 Mar, Schizoaffective disorder, depressive type F25.1 [facility] [address] [place] [address] 25370 -3587 Feb, Gastroenteritis K52.9 and BMI 45.0-49.9, adult Z68.42 [facility] [id number] [place] [address] 81844- 2631 Feb, [facility] [address] 82255- 1961 Feb, [place] [address] 76686- 3622 Feb, [place] [address] 81653- 4007 Feb, [place] [address] 33803- 2360 Feb, Paranoid schizophrenia F20.[address] 77365- 8445 Feb, Gastroesophageal reflux disease without esophagitis K21.9 ; Other seasonal allergic rhinitis J30.2 ; Other allergic rhinitis J30.89 ; Tobacco abuse Z72.0 and BMI 40.0-44.9, adult Z68.[address] 72793- 4150 Feb, Onychomycosis B35.1 ; Callus of foot L84 and DM neuro manif type II E11.49 [place] [address] 26173- 4753 Jan, Chronic allergic rhinitis J30.9 [place] [address] 83745- 1189 Jan, [place] [address] 68912- 0956 Jan, Schizoaffective disorder, depressive type F25.1 [place] [address] 51974- 8342 Jan, [facility] [address] 01763 -6038 Jan, Sore throat J02.9 and Seasonal allergic rhinitis due to other allergic trigger J30.89 [place] [address] 59308- 1336 Jan, [facility] [id number] [place] [address] 85622- 3625 Jan, [facility] [id number] [place] [address] 30916 -5805 Jan, Chronic allergic rhinitis J30.9 [facility] [id number] [place] [address] 33724- 3072 Dec, Paranoid schizophrenia F20.0 ; Primary insomnia F51.01 and Schizoaffective disorder, depressive type F25.1 [facility] [id number] [place] [address] 38559- 3897 Dec, Chronic pain syndrome G89.4 ; Cervicalgia of occipito- atlanto-axial region M54.2 ; Menopausal syndrome (hot flashes) N95.1 and Encounter for immunization Z23 [facility] [id number] [place] [address] 21249- 1434 14 Dec, 2016 [facility] [id number] [place] [address] 36956- 6919 Dec, [facility] [id number] [place] [address] 99951- 1670 Dec, Paranoid schizophrenia F20.0 [facility] [id number] [place] [address] 07911- 8204 Dec, Schizoaffective disorder, depressive type F25.1 [facility] [id number] [place] [address] 10117- 8427 Nov, Hypothyroidism, unspecified type E03.[address] [facility] [id number] [place] [address] 06254 -3206 Nov, Acute seasonal allergic rhinitis due to other allergen J30.89 [facility] [id number] [place] [address] 62543- 3165 Nov, [facility] [id number] [place] [address] 14901- 5546 Nov, Hypothyroidism, unspecified type E03.9 and Other elevated white blood cell (WBC) count D72.828 [place] [address] [place] [address] 12150- 2897 Nov, Schizoaffective disorder, depressive type F25.1 [place] [address] [place] [address] 44150- 3052 Nov, Paranoid schizophrenia F20.0 [place] [id number] [place] [address] 72283- 6452 Nov, Type 2 diabetes mellitus without complication, without long- term current use of insulin E11.9 ; Morbid obesity due to excess calories E66.01 and Chronic pain syndrome G89.4 [place] [id number] [place] [address] 29355- 6989 Oct, Paranoid schizophrenia F20.0 [place] [id number] [place] [address] 37885- 4041 Oct, [place] [id number] [place] [address] 86715- 3694 Oct, Schizoaffective disorder, depressive type F25.1 [place] [address] [place] [address] 21800- 6088 Oct, Hypothyroidism, unspecified type E03.9 and Other elevated white blood cell (WBC) count D72.828 [place] [id number] [place] [address] 38259- 9068 Oct, Morbid obesity due to excess calories E66.01 ; Chronic obstructive pulmonary disease, unspecified COPD type J44.9 ; History of lupus Z87.39 ; Hypothyroidism, unspecified type E03.9 ; Gastroesophageal reflux disease without esophagitis K21.9 ; Primary insomnia F51.01 and Chronic pain syndrome G89.4 [place] [address] [place] [address] 53346- 0615 Sep, [place] [address] [address]- 4869 29 Sep, 2016 [facility] [address] [address]- 0678 Sep, [facility] [address] [address]- 6831 Sep, Paranoid schizophrenia F20.0 [facility] [id number] [place] [address] 40627- 6815 Sep, [facility] [id number] [place] [address] 86629- 6443 Sep, Paranoid schizophrenia F20.0 [facility] [id number] [place] [address] 55935- 5015 Sep, [facility] [id number] [place] [address] 66455- 6330 August, Paranoid schizophrenia F20.0 [facility] [address] [address]- 3423 Jul, [facility] [address] [place] [address] 27243- 7123 Jul, Type 2 diabetes mellitus without complication, without long- term current use of insulin E11.9 ; Morbid obesity due to excess calories E66.01 ; Depression with anxiety F41.8 ; Hypothyroidism, unspecified type E03.9 ; Seasonal allergic rhinitis due to other allergic trigger J30.89 ; Pain, dental K08.89 and Gastroesophageal reflux disease without esophagitis K21.9 [facility] [id number] [address] Jul, Dental examination Z01.20 [facility] [id number] [place] [address] 36294- 8592 07 Jul, 2016 Paranoid schizophrenia F20.0 [facility] [address] [address]- 5671 Jun, Paranoid schizophrenia F20.0 and Depression with anxiety F41.8 [place] [id number] [place] [address] 83066- 0146 10 Jun, 2016 Paranoid schizophrenia F20.0 and Depression with anxiety F41.8 [place] [id number] [place] [address] 64933- 6180 09 Jun, 2016 [place] [id number] [place] [address] 54913- 1928 Jun, [facility] [place] [id number] [place] [address] 61827 -0694 Jun, Seasonal allergic rhinitis due to other allergic trigger J30.89 [facility] [id number] [place] [address] 07484 -3925 May, Sore throat J02.9 ; Other viral agents as the cause of diseases classified elsewhere B97.89 and Acute upper respiratory infection, unspecified J06.9 [place] [id number] [place] [address] 15180- 0141 May, Paranoid schizophrenia F20.0 and Depression with anxiety F41.8 [place] [id number] [place] [address] 15779- 6876 Apr, Other seasonal allergic rhinitis J30.2 [place] [id number] [place] [address] 18486- 7416 Apr, Paranoid schizophrenia F20.0 and Depression with anxiety F41.8 [facility] [address] [id number] [place] [address] 80717 -7156 Apr, Bronchitis J40 and Sore throat J02.[address] 26635- 8051 Apr, Type 2 diabetes mellitus without complication, without long- term current use of insulin E11.9 [facility] [id number] [place] [address] 25046 -5172 Apr, Bronchitis J40 [place] [id number] [place] [address] 74352- 1931 Apr, [place] [id number] [place] [address] 81457- 1734 Apr, [place] [id number] [place] [address] 98866- 2720 Mar, Type 2 diabetes mellitus without complication, [...] R60.9 and Other seasonal allergic rhinitis J30.2 [place] [id number] [place] [address] 98188- 6710 Mar, Paranoid schizophrenia F20.0 and Depression with anxiety F41.8 [place] [id number] [place] [address] 01401- 9939 Feb, [place] [id number] [place] [address] 31414- 0367 Feb, [place] [id number] [place] [address] 29147- 5042 Feb, [place] [id number] [place] [address] 13644- 0829 Feb, [place] [id number] [place] [address] 46257- 8391 Feb, Type 2 diabetes mellitus without complication, without long- term current use of insulin E11.9 ; ARIAS on CPAP G47.33 and Preoperative evaluation to rule out surgical contraindication Z01.818 [place] [id number] [place] [address] 72033- 9600 09 Feb, 2016 Paranoid schizophrenia F20.0 and Depression with anxiety F41.8 [place] [id number] [address]- 1500 Jan, [facility] [address] [facility] [id number] [place] [address] 75050- 9098 Jan, Paranoid schizophrenia F20.0 and Depression with anxiety F41.8 [facility] [id number] [place] [address]- 1931 17 Jan, 2016 [facility] [address] [facility] [id number] [place] [address] 01408- 8155 14 Jan, 2016 Muscle strain T14.8 [facility] [address] [facility] [id number] [place] [address] 45647- 9114 10 Jan, 2016 Paranoid schizophrenia F20.0 [facility] [id number] [address]- 5050 Jan, [facility] [id number] [place] [address] 44349- 1137 Jan, Paranoid schizophrenia F20.0 and Depression with anxiety F41.8 [facility] [id number] [address]- 8155 Jan, [facility] [id number] [place] [address] 88575- 2251 Jan, [facility] [id number] [address]- 4564 28 Dec, 2015 [facility] [address] [facility] [id number] [address]- 3164 23 Dec, 2015 Paranoid schizophrenia F20.0 [facility] [address] [facility] [id number] [address]- 4801 16 Dec, 2015 Paranoid schizophrenia F20.0 and Depression with anxiety F41.8 [facility] [address] [facility] [id number] [address]- 5281 Nov, [facility] [id number] [address]- 6189 Nov, Paranoid schizophrenia F20.0 [place] [address] [address]- 7688 Nov, Paranoid schizophrenia F20.0 and Depression with anxiety F41.8 [place] [id number] [place] [address] 31384- 2045 Nov, Type 2 diabetes mellitus without complication, without long- term current use of insulin E11.9 ; Paranoid schizophrenia F20.0 ; Chronic obstructive pulmonary disease, unspecified COPD type J44.9 ; Morbid obesity due to excess calories E66.01 and Parkinsonian tremor G20 [place] [id number] [place] [address] 95740- 3996 Nov, [place] [id number] [place] [address] 90811- 8490 Oct, Paranoid schizophrenia F20.0 [place] [id number] [place] [address] 47270- 1983 Oct, Paranoid schizophrenia F20.0 [place] [id number] [place] [address] 31790- 8553 Oct, Paranoid schizophrenia F20.0 and Depression with anxiety F41.8 [place] [id number] [place] [address] 07487- 3633 Oct, [place] [id number] [place] [address] 67926- 8345 Oct, Paranoid schizophrenia F20.0 and Depression with anxiety F41.8 [place] [id number] [place] [address] 11776- 0816 Oct, Nasal sore J34.89 [place] [id number] [place] [address] 57332- 0986 Oct, Type 2 diabetes mellitus without complication, without long- term current use of insulin E11.9 ; Depression with anxiety F41.8 ; Hypothyroidism, unspecified type E03.9 and History of lupus Z87.39 [facility] [id number] [place] [address] 20965- 9233 Oct, [facility] [address] 13333- 5518 Oct, Type 2 diabetes mellitus without complication, [...] edema R60.9 and History of lupus Z87.39 [facility] [id number] [place] [address] 43529- 4187 Feb, [facility] [address] 27011- 9358 Jan, [facility] [id number] [place] [address] 28796- 6271 Jan, [facility] [id number] [place] [address] 17230629- 3641 Jan, [facility] [id number] [place] [address] 298507- 6865 Dec, [facility] [id number] [place] [address] 64853- 2812 Nov, [facility] [id number] [place] [address] 02699- 7521 Nov, [facility] [id number] [place] [address]- 2166 Oct, [facility] [id number] [place] [address] 35896- 6501 Oct, [facility] [address] [place] [address] 17 Oct, 2014 [facility] [address] [facility] [id number] [place] [address] Sep, Allergic rhinitis 477.9 [facility] [address] [facility] [id number] [place] [address] 11 Sep, 2014 Rhinitis, allergic 477.9 [facility] [id number] [place] [address], [place] [address] Sep, Rhinitis, allergic 477.9 [facility] [address] [id number] [place] [address] Sep, [facility] [id number] [address] August, [facility] [id number] [place] [address] August, [facility] [id number] [address] August, [facility] [place] [facility] [id number] [place] [address] Jul, [facility] [id number] [address] Jul, [facility] [place] [facility] [id number] [address] Jul, [facility] [place] [facility] [id number] [address] 16 Jun, 2014 [facility] [place] [facility] [id number] [place] [address] Jun, [facility] [place] [facility] [address] [id number] [address] Jun, [facility] [place] [facility] [address] [id number] [address] Jun, [facility] [place] [facility] [id number] [address] Jun, 2014 [facility] [place] [facility] [address] [id number] [place] [address] Jun, 2014 [facility] [place] [facility] [address] [id number] [place] [address] Jun, 2014 [facility] [place] [facility] [address] [id number] [place] [address] Jun, 2014 [facility] [place] [facility] [address] [id number] [place] [address] May, 2014 [facility] [place] [facility] [address] [id number] [place] [address] May, 2014 [facility] [place] [facility] [address] [id number] [place] [address] May, 2014 [facility] [place] [facility] [address] [id number] [place] [address] 7774 May, 2014 [facility] [place] [facility] [address] [id number] [place] [address] Apr, [facility] [place] [facility] [address] [id number] [place] [address] 46[address] Mar, [facility] [place] [facility] [address] [id number] [place] [address] 2680 Mar, [facility] [place] [facility] [address] [id number] [place] [address] 0111 Mar, [facility] [place] [facility] [address] [id number] [place] [address]- 7796 Mar, [facility] [place] [facility] [address] [id number] [place] [address] Mar, [facility] [place] [facility] [address] [id number] [place] [address] Mar, [facility] [place] [facility] [address] [id number] [place] [address] Mar, [facility] [place] [facility] [address] [id number] [place] [address] 2889 Mar, [facility] [place] [facility] [address] [id number] [place] [address] Mar, [facility] [place] [facility] [address] [id number] [place] [address] 7916 Feb, [facility] [place] [facility] [address] [id number] [place] [address]- 4764 Feb, [facility] [place] [facility] [address] [id number] [place] [address] 7336 Feb, [facility] [place] [facility] [address] [id number] [place] [address] 2151 Feb, [facility] [place] [facility] [address] [id number] [place] [address] 5970 Feb, [facility] [place] [facility] [address] [id number] [place] [address]- 7370 Feb, [facility] [place] [facility] [address] [id number] [place] [address]- 5226 Feb, [facility] [place] [facility] [address] [id number] [place] [address]- 9754 Feb, [facility] [place] [facility] [address] [id number] [place] [address] 5715 Jan, [facility] [place] [facility] [address] [id number] [place] [address] 484[address] Jan, [facility] [place] [facility] [address] [id number] [place] [address]- 0261 Jan, [facility] [place] [facility] [address] [id number] [place] [address]- 9289 16 Jan, 2014 [facility] [place] [facility] [address] [id number] [place] [address] 15 Jan, 2014 [facility] [place] [facility] [address] [id number] [place] [address]- 5544 15 Jan, 2014 [facility] [place] [facility] [address] [id number] [place] [address] 1801 14 Jan, 2014 [facility] [place] [facility] [address] [id number] [place] [address] 6874 14 Jan, 2014 [facility] [place] [facility] [address] [id number] [place] [address]- 6057 14 Jan, 2014 [facility] [place] [facility] [address] [id number] [place] [address]- 4744 14 Jan, 2014 [facility] [place] [facility] [address] [id number] [place] [address] 18 Dec, 2013 [facility] [place] [facility] [address] [id number] [place] [address] 7894 18 Dec, 2013 [facility] [place] [facility] [address] [id number] [place] [address]- 6576 10 Dec, 2013 [facility] [place] [facility] [address] [id number] [place] [address] 0159 10 Dec, 2013 [facility] [place] [facility] [address] [id number] [place] [address] 1332 Nov, [facility] [place] [facility] [address] [id number] [place] [address]- 8151 Nov, [facility] [place] [facility] [address] [id number] [place] [address] 4315 Nov, [facility] [place] [facility] [address] [id number] [place] [address]- 4928 Nov, [facility] [place] [facility] [address] [id number] [place] [address] 3755 Nov, [facility] [place] [facility] [address] [id number] [place] [address] 7079 Oct, [facility] [place] [facility] [address] [id number] [place] [address]- 0471 Oct, [facility] [place] [facility] [address] [id number] [place] [address]- 9330 Oct, [facility] [place] [facility] [address] [id number] [place] [address]- 4895 Oct, [facility] [place] [facility] [address] [id number] [place] [address]- 6446 Sep, [facility] [place] [facility] [address] [id number] [place] [address] 6733 Sep, [facility] [place] [facility] [address] [id number] [place] [address]- 5882 Sep, [facility] [place] [facility] [address] [id number] [place] [address]- 0777 Sep, [facility] [place] [facility] [address] [id number] [place] [address]- 4245 Sep, [facility] [place] [facility] [address] [id number] [place] [address]- 5582 Sep, [facility] [place] [facility] [address] [id number] [place] [address] 0810 Sep, [facility] [place] [facility] [address] [id number] [place] [address] 3979 Sep, [facility] [place] [facility] [address] [id number] [place] [address] 1177 August, [facility] [place] [facility] [address] [id number] [place] [address]- 0627 August, [facility] [place] [facility] [address] [id number] [place] [address]- 9618 August, [facility] [place] [facility] [address] [id number] [place] [address]- 5995 August, [facility] [place] [facility] [address] [id number] [place] [address]- 1127 August, [facility] [place] [facility] [address] [id number] [place] [address]- 4630 August, [facility] [place] [facility] [address] [id number] [place] [address]- 5883 August, [facility] [place] [facility] [address] [id number] [place] [address]- 5066 Jul, [facility] [place] [facility] [address] [id number] [place] [address]- 1587 Jul, [facility] [place] [facility] [address] [id number] [place] [address]- 0845 Jul, [facility] [place] [facility] [address] [id number] [place] [address]- 6127 Jul, [facility] [place] [facility] [address] [id number] [place] [address]- 2062 Jul, [facility] [place] [facility] [address] [id number] [place] [address]- 3503 Jul, [facility] [place] [facility] [address] [id number] [place] [address]- 6899 Jul, [facility] [place] [facility] [address] [id number] [place] [address]- 5440 Jul, [facility] [place] [facility] [address] [id number] [place] [address]- 8251 Jul, [facility] [place] [facility] [address] [id number] [place] [address]- 5790 Jul, [facility] [place] [facility] [address] [id number] [place] [address]- 7872 Jul, [facility] [place] [facility] [address] [id number] [place] [address]- 5715 Jul, [facility] [place] [facility] [address] [id number] [place] [address] Jun, [facility] [place] [facility] [address] [id number] [place] [address] Jun, [facility] [place] [facility] [address] [id number] [place] [address]- 1342 Jun, [facility] [place] [facility] [address] [id number] [place] [address]- 2122 Jun, [facility] [place] [facility] [address] [id number] [place] [address]- 2929 Jun, [facility] [place] [facility] [address] [id number] [place] [address]- 3264 May, [facility] [place] [facility] [address] [id number] [place] [address]- 9344 May, [facility] [place] [facility] [address] [id number] [place] [address]- 9587 May, [facility] [place] [facility] [address] [id number] [place] [address]- 5066 May, [facility] [place] [facility] [address] [id number] [place] [address]- 9439 May, [facility] [place] [facility] [address] [id number] [place] [address]- 8682 May, [facility] [place] [facility] [address] [id number] [place] [address]- 4148 May, [facility] [place] [facility] [address] [id number] [place] [address]- 6328 May, [facility] [place] [facility] [address] [id number] [place] [address]- 4697 Mar, [facility] [place] [facility] [address] [id number] [place] [address]- 9407 Mar, [facility] [place] [facility] [address] [id number] [place] [address] Mar, [facility] [place] [facility] [address] [id number] [place] [address] Mar, [facility] [place] [facility] [address] [id number] [place] [address]- 1725 Mar, [facility] [place] [facility] [address] [id number] [place] [address]- 5032 Mar, [facility] [place] [facility] [address] [id number] [place] [address]- 2804 Feb, [facility] [place] [facility] [address] [id number] [place] [address]- 3203 Feb, [facility] [place] [facility] [address] [id number] [place] [address]- 6315 Jan, [facility] [place] [facility] [address] [id number] [place] [address]- 6737 Jan, [facility] [place] [facility] [address] [id number] [place] [address]- 7274 Jan, [facility] [place] [facility] [address] [id number] [place] [address]- 2557 Jan, [facility] [place] [facility] [address] [id number] [place] [address]- 7703 Jan, [facility] [place] [facility] [address] [id number] [place] [address]- 4604 Jan, [facility] [place] [facility] [address] [id number] [address]- 3288 Jan, [facility] [place] [facility] [address] [id number] [address]- 1699 Jan, [facility] [place] [facility] [address] [id number] [address]- 4254 08 Jan, 2013 [facility] [place] [facility] [address] [id number] [place] [address]- 9473 Jan, [facility] [place] [facility] [address] [id number] [address]- 6266 16 Dec, 2012 [facility] [place] [facility] [address] [id number] [place] [address]- 0458 Nov, [facility] [place] [facility] [address] [id number] [address]- 4271 Nov, [facility] [address] [address]- 1348 Nov, [facility] [address] [address]- 6453 Oct, [facility] [address]65[address] [address]- 5355 Oct, [facility] [address] [address]- 0066 August, [facility] [address] [address]- 4806 Apr, [facility] [address] [address]- 8775 Apr, [facility] [address]65100[place] [address]- 3893 Feb, [facility] [address]65100[place] [address]- 8305 Feb, [facility] [address]00565100[place] [address]- 5858 Dec, [facility] [address]65100[place] [address]- 7483 Dec, [facility] [address]00565100[place] [address]- 9723 Oct, [facility] [address] [address]- 2594 Oct, [facility] [address] [address]- 0607 Oct, [facility] [address] [address] Jul, IMMUNIZATIONS No Known Immunizations SOCIAL HISTORY Never Assessed REASON FOR VISIT Medication refill request PLAN OF CARE VITAL SIGNS MEDICATIONS Medication Instructions Dosage Frequency Start Date End Date Duration Status Sumatriptan Succinate 50 mg Orally Twice a day 1 tablet as needed for migraine- may repeat in 2 hours if needed 12h 08 May, 2017 10 days Active Metformin HCl 1000MG Orally 2 times a day TAKE ONE TABLET BY MOUTH TWICE DAILY 12h 30 days Active Neurontin 600 mg Orally [...] for psychosis/mental illness , last one in Pending sale to [facility] 4 years ago
--- OUTSIDE RECORDS SUMMARY | 2018-09-02 14:05 | XMS REPORT ---
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 Role Phone UMESH PINEDA CP Unavailable Allergies, Adverse Reactions, Alerts Substance Reaction Event Type Penicillins Info Not Available Non Drug Allergy Sulfa(sulfonamide Antibiotics) Info Not Available Non Drug Allergy Problems Problem Type Condition Code Onset Dates [...] Instructions Start Date End Date Status Dosage trazodone [facility] [address]-39 150 mg July 05, 2013 1 Daily by Oral route 1 time per day Take at for sleep Norvasc [facility] [address]-17 10 MG Orally Once a day 1 tablet Levothyroxine Sodium [facility] 13020219536 150 MCG TAKE 1 TABLET BY ORAL ROUTE 1 TIME PER DAY sertraline [facility] 0 100 mg Once a day November 15, 2012 take 1 tablet ( 100 mg) by oral route once daily Spironolactone [facility] [address]-16 50 MG Orally, must be seen for more refills Once a day 1 tablet Ropinirole HCl [facility] [address]-74 0.25 MG Orally Three times a day 2 tablets Premarin [facility] 57309528660 0.625 MG/GM insert 0.5 gram by vaginal route twice weekly Claritin [facility] [address]-51 10 MG Orally Once a day 1 tablet Invega Sustenna [facility] [address]-16 156 MG/ML Intramuscular once on OctoberNovember 13, 2015 1 drop Nexium [facility] [address]-24 40 MG Orally Once a day 1 capsule Invega Sustenna [facility] [address]-47 234 MG/1.5ML Intramuscular once November 13, 2015 1.5 ml Breo Ellipta [facility] [address]-69 100-25 mcg/dose Inhalation, must be seen for more refills Once a day July 05, 2014 inhale 1 puff by inhalation route once daily at the same time each day Pravastatin Sodium [facility] [address]-42 10 MG Orally Once a day September 21, 2014 1 tablet Invega [facility] [address]-66 3 MG Orally Once a day 1 tablet Loxapine Succinate [facility] [address]-42 25 MG Orally 4 times a day PRN 1 capsule Invega [facility] [address]-30 9 MG Orally Once a day 1 tablet Myrbetriq [facility] [address]-68 50 MG Orally Once a day 1 tablet Gabapentin [facility] [address]-03 600 MG Orally Three times a day 1 tablet Restasis [facility] [address]-33 0.05 % November 15, 2012 instill 1 drop into affected eye(s) by ophthalmic route 2 times per day metformin [facility] [address]-39 1,000 mg orally 2 times a day July 05, 2014 1 tablet Tizanidine HCl [facility] [address]-74 4 MG Orally 3 times a day 1 1/2 tablets Promethazine HCl [facility] [address]-97 25 MG Orally every 6 hrs PRN nausea from headache 1 tablet as needed cyclobenzaprine [facility] [address]-61 10 mg June 25, 2014 1 tablet 2 times per day PRN Imitrex [facility] [address]-58 50 mg Orally max of 2 doses in 24 hr period 1 tablet as needed for headache may repeat 2 hours after first dose Procedures Procedure Coding System Code Date MH Office Visit, New Pt., Level 5 CPT-4 65041 November 12, 2015 Vital Signs Date/Time: November 12, 2015 Cardiac Monitoring Heart Rate 99 bpm Weight 218.6 lbs Height 57 in Blood Pressure Diastolic 80 mmHg Blood Pressure Systolic 130 mmHg Results No Known Results Summary Purpose eClinicalWorks Submission
--- OUTSIDE RECORDS SUMMARY | 2018-09-02 14:05 | XMS REPORT ---
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 Name Role Phone SOTO STRICKLAND Unavailable PROBLEMS Type Condition ICD9-CM Code VYB68-PG Code Onset Dates Condition Status SNOMED Code Problem Other seasonal allergic rhinitis J30.2 Active 972990076 Problem Gastroesophageal reflux disease, esophagitis presence not specified K21.9 Active 118683159 Problem Tobacco abuse Z72.0 Active 277817446 Problem Seasonal allergic rhinitis due to pollen J30.1 Active 01794570 Problem History of lupus Z87.39 Active 270467605 Problem COPD exacerbation J44.1 Active 674561815 Problem OAB (overactive bladder) N32.81 Active 391436378 Problem Morbid obesity due to excess calories E66.01 Active 132381526 Problem Dyslipidemia E78.5 Active 081500334 Problem Migraine without aura and without status migrainosus, not intractable G43.009 Active 084628331 Problem Hypothyroidism (acquired) E03.9 Active 254802483 Problem Essential hypertension I10 Active 43603104 Problem Type 2 diabetes mellitus without complication, without long-term current use of insulin E11.9 Active 093693712 Problem Gastroesophageal reflux disease without esophagitis K21.9 Active 113810743 Problem Chronic pain syndrome G89.4 Active 846378184 Problem Paranoid schizophrenia F20.0 Active 04087820 Problem Primary insomnia F51.01 Active 6897380 Problem DM neuro manif type II E11.49 Active 86308663 Problem Depression with anxiety F41.8 Active 397860894 Problem Seasonal allergic rhinitis due to other allergic trigger J30.89 Active 494424811 Problem Menopausal syndrome (hot flashes) N95.1 Active 182771841 Problem Chronic obstructive pulmonary disease, unspecified COPD type J44.9 Active 70350318 Problem Schizoaffective disorder, depressive type F25.1 Active 29108513 Problem Other allergic rhinitis J30.89 Active 096933953 ALLERGIES No Information ENCOUNTERS Encounter Location Date Diagnosis [facility] [address] [place] [address] Nov, [facility] [id number] [place] [address] 09333- 8904 Oct, [facility] [id number] [place] [address] 22386- 6235 Oct, [facility] [id number] [place] [address] 65201- 7109 Oct, [facility] [id number] [place] [address] 91789- 2053 Sep, Paranoid schizophrenia F20.0 [facility] [address] [place] [address] 95627- 8033 Sep, Paranoid schizophrenia F20.0 and BMI 45.0-49.9, adult Z68.42 [facility] [address] [place] [address] 61640- 5066 Sep, Schizoaffective disorder, depressive type F25.1 [facility] [id number] [place] [address] 27535- 1911 Sep, [facility] [address] [place] [address] 71018- 1023 Sep, Paranoid schizophrenia F20.0 [facility] [address] [place] [address] 66322- 2108 Sep, [facility] [address] [place] [address] 72294- 3636 Sep, Hypothyroidism (acquired) E03.9 [facility] [address] [place] [address] 37157- 6384 Sep, [facility] [address] [place] [address] 82806- 0637 August, Schizoaffective disorder, depressive type F25.1 [facility] [address] [place] [address] 98779- 0713 August, [facility] [address] 17641- 4979 August, [facility] [address] [place] [address] 09172- 2801 August, [facility] [address] 77953- 9617 August, Paranoid schizophrenia F20.0 [facility] [address] [place] [address] 14164- 0960 August, History of lupus Z87.39 and Chronic pain syndrome G89.4 [place] [address] 04446- 2394 August, [facility] [address] 73417 -6034 August, Seasonal allergic rhinitis, unspecified trigger J30.2 and BMI 45.0-49.9, adult Z68.42 [place] [address] 52637- 7447 Jul, Schizoaffective disorder, depressive type F25.1 [place] [address] [place] [address] 28799- 3958 Jul, [place] [address] 05888- 5672 Jul, Hypothyroidism (acquired) E03.9 [place] [address] [place] [address] 47184- 8117 Jul, Chronic obstructive pulmonary disease, unspecified COPD type J44.9 and Type 2 diabetes mellitus without complication, without long-term current use of insulin E11.9 [place] [address] [place] [address] 11045- 0504 Jul, Paranoid schizophrenia F20.0 [place] [address] 61191- 4053 Jun, Hypothyroidism (acquired) E03.9 and Seasonal allergic rhinitis due to pollen J30.1 [facility] [address] 16354 -7841 Jun, Shortness of breath at rest R06.02 ; COPD exacerbation J44.1 and BMI 45.0-49.9, adult Z68.42 [facility] [address] 70329- 0208 Jun, [facility] [address] 18455- 8099 Jun, Paranoid schizophrenia F20.0 ; Depression with anxiety F41.8 and BMI 45.0-49.9, adult Z68.42 [facility] [address] 80932- 9927 20 Jun, 2017 Schizoaffective disorder, depressive type F25.1 [facility] [address] [id number] Jun, Dental caries K02.9 [facility] [address] 95202- 6001 Jun, Paranoid schizophrenia F20.0 [facility] [address] 89743- 3485 May, Migraine without aura and without status migrainosus, not intractable G43.009 ; DM neuro manif type II E11.49 and Type 2 diabetes mellitus without complication, without long-term current use of insulin E11.9 [facility] [address] 20996- 5541 May, Migraine without aura and without status migrainosus, not intractable G43.009 [facility] [address] 22776- 1949 May, Depression with anxiety F41.8 [facility] [address] [id number] May, [facility] [address] [address] May, [place] [address] [place] [address] 17166- 6921 May, [facility] [address] [place] [address] 74905- 2726 May, Hypothyroidism (acquired) E03.9 [place] [address] [place] [address] 01709- 4720 May, Paranoid schizophrenia F20.0 [place] [address] [place] [address] 49954- 7895 May, Type 2 diabetes mellitus without complication, [...] N32.81 and Controlled substance agreement signed Z79.899 [place] [address] [place] [address] 86588- 9639 May, Controlled substance agreement signed Z79.899 [place] [address] [address] 9117 Apr, [facility] [address] [place] [address] [id number] Apr, Dental examination Z01.20 [place] [address] [place] [address] 00991- 6798 Apr, Paranoid schizophrenia F20.0 [place] [address] [place] [address] 47186- 6378 Apr, Hypertension, unspecified type I10 [facility] [address] [place] [address] 22928- 0077 Apr, Paranoid schizophrenia F20.0 [facility] [address] [place] [address] 42158- 5104 Apr, [facility] [address] [place] [address] 33471- 4092 Apr, Tobacco abuse Z72.0 [place] [address] [place] [address] 46241- 2622 Apr, [facility] [address] [place] [address] 33697- 8160 Mar, [place] [address] [place] [address] 34046- 0591 Mar, Paranoid schizophrenia F20.0 and BMI 45.0-49.9, adult Z68.42 [place] [address] [place] [address] 82252- 3167 Mar, Schizoaffective disorder, depressive type F25.1 [place] [address] [place] [address] 21768- 2597 Mar, [facility] [address] [place] [address] 25169- 7513 Mar, Hypothyroidism, unspecified type E03.9 [facility] [address] [place] [address] 19413- 6724 Mar, Schizoaffective disorder, depressive type F25.1 [facility] [address] [place] [address] 59154 -5060 Feb, Gastroenteritis K52.9 and BMI 45.0-49.9, adult Z68.42 [facility] [address] [place] [address] 26088- 7533 Feb, [facility] [address] 00850- 5780 Feb, [place] [address] 52836- 6917 Feb, [place] [address] 73525- 5450 Feb, [place] [address] 24809- 8445 Feb, Paranoid schizophrenia F20.[address] 58789- 6513 Feb, Gastroesophageal reflux disease without esophagitis K21.9 ; Other seasonal allergic rhinitis J30.2 ; Other allergic rhinitis J30.89 ; Tobacco abuse Z72.0 and BMI 40.0-44.9, adult Z68.[address] 27214- 8088 Feb, Onychomycosis B35.1 ; Callus of foot L84 and DM neuro manif type II E11.49 [place] [address] 91938- 4465 Jan, Chronic allergic rhinitis J30.9 [place] [address] 24687- 8372 Jan, [place] [address] 09473- 2058 Jan, Schizoaffective disorder, depressive type F25.1 [place] [address] 08209- 1992 Jan, [facility] [address] 12955 -6728 Jan, Sore throat J02.9 and Seasonal allergic rhinitis due to other allergic trigger J30.89 [place] [address] 60526- 7739 Jan, [facility] [address] [place] [address] 22908- 6641 Jan, [facility] [address] [place] [address] 37249 -9083 Jan, Chronic allergic rhinitis J30.9 [facility] [address] [place] [address] 98143- 8632 Dec, Paranoid schizophrenia F20.0 ; Primary insomnia F51.01 and Schizoaffective disorder, depressive type F25.1 [facility] [address] [place] [address] 67201- 4936 Dec, Chronic pain syndrome G89.4 ; Cervicalgia of occipito- atlanto-axial region M54.2 ; Menopausal syndrome (hot flashes) N95.1 and Encounter for immunization Z23 [facility] [address] [place] [address] 11785- 8604 14 Dec, 2016 [facility] [address] [place] [address] 51088- 8375 Dec, [facility] [address] [place] [address] 42658- 3867 Dec, Paranoid schizophrenia F20.0 [facility] [address] [place] [address] 97914- 4582 Dec, Schizoaffective disorder, depressive type F25.1 [facility] [address] [place] [address] 10739- 3018 Nov, Hypothyroidism, unspecified type E03.9 [facility] [address] [place] [address] 11039 -1087 Nov, Acute seasonal allergic rhinitis due to other allergen J30.89 [facility] [address] [place] [address] 46885- 8910 Nov, [facility] [address] [place] [address] 69836- 6641 Nov, Hypothyroidism, unspecified type E03.9 and Other elevated white blood cell (WBC) count D72.828 [place] [address] [place] [address] 72688- 1112 Nov, Schizoaffective disorder, depressive type F25.1 [place] [address] [place] [address] 51232- 6040 Nov, Paranoid schizophrenia F20.0 [place] [address] [place] [address] 30179- 6187 Nov, Type 2 diabetes mellitus without complication, without long- term current use of insulin E11.9 ; Morbid obesity due to excess calories E66.01 and Chronic pain syndrome G89.4 [place] [address] [place] [address] 47588- 8155 Oct, Paranoid schizophrenia F20.0 [place] [address] [place] [address] 17134- 4652 Oct, [place] [address] [place] [address] 63147- 4552 Oct, Schizoaffective disorder, depressive type F25.1 [place] [address] [place] [address] 92840- 5817 Oct, Hypothyroidism, unspecified type E03.9 and Other elevated white blood cell (WBC) count D72.828 [place] [address] [place] [address] 38674- 0171 Oct, Morbid obesity due to excess calories E66.01 ; Chronic obstructive pulmonary disease, unspecified COPD type J44.9 ; History of lupus Z87.39 ; Hypothyroidism, unspecified type E03.9 ; Gastroesophageal reflux disease without esophagitis K21.9 ; Primary insomnia F51.01 and Chronic pain syndrome G89.4 [place] [address] [place] [address] 51379- 0267 Sep, [place] [address] [address]- 7049 29 Sep, 2016 [facility] [address] [address]- 7249 Sep, [facility] [address] [address]- 5060 Sep, Paranoid schizophrenia F20.0 [facility] [address] [place] [address] 54007- 0657 Sep, [facility] [address] [place] [address] 70951- 8161 Sep, Paranoid schizophrenia F20.0 [facility] [address] [place] [address] 56092- 4011 Sep, [facility] [address] [place] [address] 50388- 0686 August, Paranoid schizophrenia F20.0 [facility] [address] [address]- 5189 Jul, [facility] [address] [place] [address] 43814- 9692 Jul, Type 2 diabetes mellitus without complication, without long- term current use of insulin E11.9 ; Morbid obesity due to excess calories E66.01 ; Depression with anxiety F41.8 ; Hypothyroidism, unspecified type E03.9 ; Seasonal allergic rhinitis due to other allergic trigger J30.89 ; Pain, dental K08.89 and Gastroesophageal reflux disease without esophagitis K21.9 [facility] [id number] [place] [address] Jul, Dental examination Z01.20 [facility] [address] [place] [address] 28251- 6845 07 Jul, 2016 Paranoid schizophrenia F20.0 [facility] [address] [address]- 8595 Jun, Paranoid schizophrenia F20.0 and Depression with anxiety F41.8 [place] [address] [place] [address] 41928- 9572 10 Jun, 2016 Paranoid schizophrenia F20.0 and Depression with anxiety F41.8 [place] [address] [place] [address] 44788- 1877 09 Jun, 2016 [place] [id number] [place] [address] 75820- 5120 Jun, [facility] [place] [address] [place] [address] 22645 -2827 Jun, Seasonal allergic rhinitis due to other allergic trigger J30.89 [facility] [id number] [place] [address] 28874 -6640 May, Sore throat J02.9 ; Other viral agents as the cause of diseases classified elsewhere B97.89 and Acute upper respiratory infection, unspecified J06.9 [place] [id number] [place] [address] 35358- 8967 May, Paranoid schizophrenia F20.0 and Depression with anxiety F41.8 [place] [id number] [place] [address] 69229- 1605 Apr, Other seasonal allergic rhinitis J30.2 [place] [id number] [place] [address] 78075- 1289 Apr, Paranoid schizophrenia F20.0 and Depression with anxiety F41.8 [facility] [id number] [place] [address] 17922 -6525 Apr, Bronchitis J40 and Sore throat J02.[address] 69581- 8102 Apr, Type 2 diabetes mellitus without complication, without long- term current use of insulin E11.9 [facility] [id number] [place] [address] 36543 -0864 Apr, Bronchitis J40 [address] [id number] [place] [address] 23910- 7095 Apr, [place] [address] [place] [address] 35994- 5745 Apr, [place] [address] [place] [address] 75256- 5163 Mar, Type 2 diabetes mellitus without complication, [...] R60.9 and Other seasonal allergic rhinitis J30.2 [place] [address] [place] [address] 10211- 8340 Mar, Paranoid schizophrenia F20.0 and Depression with anxiety F41.8 [place] [address] [place] [address] 75867- 8770 Feb, [place] [address] [place] [address] 94534- 1218 Feb, [place] [address] [place] [address] 52556- 8254 Feb, [place] [address] [place] [address] 04758- 0364 Feb, [place] [address] [place] [address] 30816- 6482 Feb, Type 2 diabetes mellitus without complication, without long- term current use of insulin E11.9 ; ARIAS on CPAP G47.33 and Preoperative evaluation to rule out surgical contraindication Z01.818 [place] [address] [place] [address] 62956- 6638 09 Feb, 2016 Paranoid schizophrenia F20.0 and Depression with anxiety F41.8 [place] [id number] [address]- 0440 Jan, [facility] [address] [facility]] [id number] [place] [address] 87445- 6477 Jan, Paranoid schizophrenia F20.0 and Depression with anxiety F41.8 [facility] [id number] [address]- 4124 17 Jan, 2016 [facility] [address] [facility]] [id number] [place] [address] 39108- 7685 14 Jan, 2016 Muscle strain T14.8 [facility] [address] [facility]] [id number] [place] [address] 18078- 6650 10 Jan, 2016 Paranoid schizophrenia F20.0 [facility] [id number] [address]- 3820 Jan, [facility] [id number] [place] [address] 89620- 0128 Jan, Paranoid schizophrenia F20.0 and Depression with anxiety F41.8 [facility] [id number] [address]- 0744 Jan, [facility] [id number] [place] [address] 12106- 9211 Jan, [facility] [id number] [address]- 2529 28 Dec, 2015 [facility] [address] [facility] [id number] [place] [address]- 9771 23 Dec, 2015 Paranoid schizophrenia F20.0 [facility] [address] [facility]] [id number] [place] [address]- 4407 16 Dec, 2015 Paranoid schizophrenia F20.0 and Depression with anxiety F41.8 [facility] [address] [facility]] [id number] [place] [address]- 2365 Nov, [facility] [id number] [address]- 6291 Nov, Paranoid schizophrenia F20.0 [place] [address] [address]- 5080 Nov, Paranoid schizophrenia F20.0 and Depression with anxiety F41.8 [place] [id number] [place] [address] 17032- 0623 Nov, Type 2 diabetes mellitus without complication, without long- term current use of insulin E11.9 ; Paranoid schizophrenia F20.0 ; Chronic obstructive pulmonary disease, unspecified COPD type J44.9 ; Morbid obesity due to excess calories E66.01 and Parkinsonian tremor G20 [place] [id number] [place] [address] 74000- 5101 Nov, [place] [id number] [place] [address] 40423- 3127 Oct, Paranoid schizophrenia F20.0 [place] [id number] [place] [address] 33682- 0819 Oct, Paranoid schizophrenia F20.0 [place] [id number] [place] [address] 27250- 9403 Oct, Paranoid schizophrenia F20.0 and Depression with anxiety F41.8 [place] [id number] [place] [address] 38080- 4498 Oct, [place] [address] [place] [address] 61116- 4704 Oct, Paranoid schizophrenia F20.0 and Depression with anxiety F41.8 [place] [address] [place] [address] 27486- 3805 Oct, Nasal sore J34.89 [place] [address] [place] [address] 80830- 0044 Oct, Type 2 diabetes mellitus without complication, without long- term current use of insulin E11.9 ; Depression with anxiety F41.8 ; Hypothyroidism, unspecified type E03.9 and History of lupus Z87.39 [facility] [address] [place] [address] 62342- 8289 Oct, [facility] [address] 92170- 0489 Oct, Type 2 diabetes mellitus without complication, [...] edema R60.9 and History of lupus Z87.39 [facility] [id number] [place] [address] 54824- 2714 Feb, [facility] [address] 08320- 1735 Jan, [facility] [id number] [place] [address] 19283- 9780 Jan, [facility] [id number] [place] [address] 84602265- 2292 Jan, [facility] [id number] [place] [address] 630773- 0617 Dec, [facility] [id number] [place] [address] 03348- 2875 Nov, [facility] [id number] [place] [address] 43560- 4840 Nov, [facility] [id number] [place] [address] 14957- 6716 Oct, [facility] [id number] [place] [id number]- [address] Oct, [facility] [address] [place] [address] 17 Oct, 2014 [facility] [address] [facility][NOTE 3] [id number] [place] [address] Sep, Allergic rhinitis 477.9 [facility] [address] [facility][NOTE 3] [id number] [place] [address] 11 Sep, 2014 Rhinitis, allergic 477.9 [facility] [id number] [place] [address], [place] [address] Sep, Rhinitis, allergic 477.9 [facility] [address] [id number] [address] Sep, [facility] [id number] [place] [address] August, [facility] [id number] [address] August, [facility] [address]005[address] [address] August, [facility] [place] [facility] [address] [address] Jul, [facility] [address] [address] Jul, [facility] [place] [facility] [address] [address] Jul, [facility] [place] [facility] [address] [address] 16 Jun, 2014 [facility] [place] [facility] [id number] [address] Jun, [facility] [place] [facility] [id number] [address] Jun, [facility] [place] [facility] [id number] [address] Jun, [facility] [place] [facility] [id number] [address] Jun, 2014 [facility] [place] [facility] [address] [id number] [place] [address] Jun, 2014 [facility] [place] [facility] [address] [id number] [place] [address] Jun, 2014 [facility] [place] [facility] [address] [id number] [place] [address] 2792 Jun, 2014 [facility] [place] [facility] [address] [id number] [place] [address] May, 2014 [facility] [place] [facility] [address] [id number] [place] [address] May, 2014 [facility] [place] [facility] [address] [id number] [place] [address]- 0235 May, 2014 [facility] [place] [facility] [address] [id number] [place] [address]- 1179 May, 2014 [facility] [place] [facility] [address] [id number] [place] [address]- [address] Apr, [facility] [place] [facility] [address] [id number] [place] [address] Mar, [facility] [place] [facility] [address] [id number] [place] [address] 59[address] Mar, [facility] [place] [facility] [address] [id number] [place] [address] 1459 Mar, [facility] [place] [facility] [address] [id number] [place] [address] 6333 Mar, [facility] [place] [facility] [address] [id number] [place] [address] Mar, [facility] [place] [facility] [address] [id number] [place] [address] Mar, [facility] [place] [facility] [address] [id number] [place] [address] Mar, [facility] [place] [facility] [address] [id number] [place] [address] 2978 Mar, [facility] [place] [facility] [address] [id number] [place] [address] Mar, [facility] [place] [facility] [address] [id number] [place] [address] 6186 Feb, [facility] [place] [facility] [address] [id number] [place] [address] 54[address] Feb, [facility] [place] [facility] [address] [id number] [place] [address] 6[address] Feb, [facility] [place] [facility] [address] [id number] [place] [address]- 4208 Feb, [facility] [place] [facility] [address] [id number] [place] [address]- 5963 Feb, [facility] [place] [facility] [address] [id number] [place] [address]- 4687 Feb, [facility] [place] [facility] [address] [id number] [place] [address]- 1133 Feb, [facility] [place] [facility] [address] [id number] [place] [address]- 0178 Feb, [facility] [place] [facility] [address] [id number] [place] [address]- 8047 Jan, [facility] [place] [facility] [address] [id number] [place] [address] 1670 Jan, [facility] [place] [facility] [address] [id number] [place] [address]- 6682 Jan, [facility] [place] [facility] [address] [id number] [place] [address]- 4[address] 16 Jan, 2014 [facility] [place] [facility] [address] [id number] [place] [address] 15 Jan, 2014 [facility] [place] [facility] [address] [id number] [place] [address]- 0775 15 Jan, 2014 [facility] [place] [facility] [address] [id number] [place] [address]- 8924 14 Jan, 2014 [facility] [place] [facility] [address] [id number] [place] [address]- 8039 14 Jan, 2014 [facility] [place] [facility] [address] [id number] [place] [address]- 6613 14 Jan, 2014 [facility] [place] [facility] [address] [id number] [place] [address]- 3668 14 Jan, 2014 [facility] [place] [facility] [address] [id number] [place] [address]- 9080 18 Dec, 2013 [facility] [place] [facility] [address] [id number] [place] [address]- 6479 18 Dec, 2013 [facility] [place] [facility] [address] [id number] [place] [address]- 0807 10 Dec, 2013 [facility] [place] [facility] [address] [id number] [place] [address]- 5743 10 Dec, 2013 [facility] [place] [facility] [address] [id number] [place] [address]- 2476 Nov, [facility] [place] [facility] [address] [id number] [place] [address]- 8935 Nov, [facility] [place] [facility] [address] [id number] [place] [address]- 1756 Nov, [facility] [place] [facility] [address] [id number] [place] [address]- 4833 Nov, [facility] [place] [facility] [address] [id number] [place] [address]- 3098 Nov, [facility] [place] [facility] [address] [id number] [place] [address]- 2103 Oct, [facility] [place] [facility] [address] [id number] [place] [address]- 8611 Oct, [facility] [place] [facility] [address] [id number] [place] [address]- 0178 Oct, [facility] [place] [facility] [address] [id number] [place] [address]- 4159 Oct, [facility] [place] [facility] [address] [id number] [place] [address]- 6761 Sep, [facility] [place] [facility] [address] [id number] [place] [address]- 7525 Sep, [facility] [place] [facility] [address] [id number] [place] [address]- 2409 Sep, [facility] [place] [facility] [address] [id number] [place] [address]- 0155 Sep, [facility] [place] [facility] [address] [id number] [place] [address]- 4750 Sep, [facility] [place] [facility] [address] [id number] [place] [address]- 7772 Sep, [facility] [place] [facility] [address] [id number] [place] [address]- 8503 Sep, [facility] [place] [facility] [address] [id number] [place] [address]- 7469 Sep, [facility] [place] [facility] [address] [id number] [place] [address]- 0245 August, [facility] [place] [facility] [address] [id number] [place] [address]- 8658 August, [facility] [place] [facility] [address] [id number] [place] [address]- 1232 August, [facility] [place] [facility] [address] [id number] [place] [address]- 4056 August, [facility] [place] [facility] [address] [id number] [place] [address]- 0026 August, [facility] [place] [facility] [address] [id number] [place] [address]- 2550 August, [facility] [place] [facility] [address] [id number] [place] [address]- 1426 August, [facility] [place] [facility] [address] [id number] [place] [address]- 2473 Jul, [facility] [place] [facility] [address] [id number] [place] [address]- 7179 Jul, [facility] [place] [facility] [address] [id number] [place] [address]- 0674 Jul, [facility] [place] [facility] [address] [id number] [place] [address]- 3407 Jul, [facility] [place] [facility] [address] [id number] [place] [address]- 5924 Jul, [facility] [place] [facility] [address] [id number] [place] [address]- 2571 Jul, [facility] [place] [facility] [address] [id number] [place] [address]- 5486 Jul, [facility] [place] [facility] [address] [id number] [place] [address]- 7295 Jul, [facility] [place] [facility] [address] [id number] [place] [address]- 3796 Jul, [facility] [place] [facility] [address] [id number] [place] [address]- 8798 Jul, [facility] [place] [facility] [address] [id number] [place] [address]- 9604 Jul, [facility] [place] [facility] [address] [id number] [place] [address]- 2528 Jul, [facility] [place] [facility] [address] [id number] [place] [address] Jun, [facility] [place] [facility] [address] [id number] [place] [address] Jun, [facility] [place] [facility] [address] [id number] [place] [address]- 4288 Jun, [facility] [place] [facility] [address] [id number] [place] [address]- 3091 Jun, [facility] [place] [facility] [address] [id number] [place] [address]- 6411 Jun, [facility] [place] [facility] [address] [id number] [place] [address]- 1759 May, [facility] [place] [facility] [address] [id number] [place] [address]- 0195 May, [facility] [place] [facility] [address] [id number] [place] [address]- 2060 May, [facility] [place] [facility] [address] [id number] [place] [address]- 2914 May, [facility] [place] [facility] [address] [id number] [place] [address]- 8911 May, [facility] [place] [facility] [address] [id number] [place] [address]- 7646 May, [facility] [place] [facility] [address] [id number] [place] [address]- 5688 May, [facility] [place] [facility] [address] [id number] [place] [address]- 7660 May, [facility] [place] [facility] [address] [id number] [place] [address]- 6640 Mar, [facility] [place] [facility] [address] [id number] [place] [address]- 6403 Mar, [facility] [place] [facility] [address] [id number] [place] [address] Mar, [facility] [place] [facility] [address] [id number] [place] [address] Mar, [facility] [place] [facility] [address] [id number] [place] [address]- 2046 Mar, [facility] [place] [facility] [address] [id number] [place] [address]- 0481 Mar, [facility] [place] [facility] [address] [id number] [place] [address]- 4551 Feb, [facility] [place] [facility] [address] [id number] [place] [address]- 6433 Feb, [facility] [place] [facility] [address] [id number] [place] [address]- 1172 Jan, [facility] [place] [facility] [address] [id number] [place] [address]- 4424 Jan, [facility] [place] [facility] [address] [id number] [place] [address]- 0140 Jan, [facility] [place] [facility] [address] [id number] [place] [address]- 5252 Jan, [facility] [place] [facility] [address] [id number] [place] [address]- 7930 Jan, [facility] [place] [facility] [address] [id number] [place] [address]- 4128 Jan, [facility] [place] [facility] [address] [id number] [place] [address]- 6578 Jan, [facility] [place] [facility] [address] [id number] [place] [address]- 0074 Jan, [facility] [place] [facility] [address] [id number] [place] [address]- 4921 08 Jan, 2013 [facility] [place] [facility] [address] [id number] [place] [address]- 9845 Jan, [facility] [place] [facility] [address] [id number] [place] [address]- 1116 16 Dec, 2012 [facility] [place] [facility] [address] [id number] [place] [address]- 9254 Nov, [facility] [place] [facility] [address] [id number] [place] [address]- 0573 Nov, [facility] [address] [address]- 8772 Nov, [facility] [address] [address]- 2539 Oct, [facility] [address] [address]- 8240 Oct, [facility] [address] [address]- [address] August, [facility] [address] [address]- 4697 Apr, [facility] [address] [address]- 4134 Apr, [facility] [address] [address]- 6448 Feb, [facility] [address] [address]- 6406 Feb, [facility] [address] [address]- 5992 Dec, [facility] [address] [address]- 7942 Dec, [facility] [address] [address]- 0813 Oct, [facility] [address] [address]- 8287 Oct, [facility] [address] [address]- 9636 Oct, [facility] [address] [place] [address] Jul, IMMUNIZATIONS No Known Immunizations SOCIAL HISTORY Never Assessed REASON FOR VISIT Medication refill request PLAN OF CARE VITAL SIGNS MEDICATIONS Medication Instructions Dosage Frequency Start Date End Date Duration Status Sumatriptan Succinate 50 mg Orally Twice a day 1 tablet as needed for migraine- may repeat in 2 hours if needed 12h 08 May, 2017 10 days Active RESULTS No Results PROCEDURES No [...] illness , last one in [facility] 4 years ago
--- OUTSIDE RECORDS SUMMARY | 2018-09-02 14:05 | XMS REPORT ---
Author Author SOTO STRICKLAND Organization [employer] Address Unknown Phone Unavailable Care Team Providers Care Moving Consultant Name Role Phone SOTO STRICKLAND CP Unavailable Allergies No Known Allergies Problems [...] Problem Other seasonal allergic rhinitis J30.2 Active Problem History of lupus Z87.39 Active Problem Peripheral edema R60.9 Active Problem Parkinsonian tremor G20 Active Medications Medication Code System Code Instructions Start Date End Date Status Dosage Pravastatin Sodium [facility] [address]-93 10 MG Orally Once a day September 21, 2014 1 tablet Results No Known Results Summary Purpose [employer] Submission
--- OUTSIDE RECORDS SUMMARY | 2018-09-02 14:06 | XMS REPORT ---
Author Author UMESH PINEDA Organization [employer] Address Unknown Phone Unavailable Care Team Providers Care Applied Behavior Specialist Name Role Phone UMESH PINEDA CP Unavailable [...] Active Problem Parkinsonian tremor G20 Active Medications No Known Medications Results No Known Results Summary Purpose [employer] Submission
--- OUTSIDE RECORDS SUMMARY | 2018-09-02 14:06 | XMS REPORT ---
Author Author RADHA ROJAS [facility] [employer] Address Unknown Phone Unavailable Care Team Providers Care Strategic Business Development Name Role Phone RADHA ROJAS CP Unavailable Allergies No Known Allergies Problems [...] tremor G20 Active Medications No Known Medications Procedures Procedure Coding System Code Date THER/PROPH/DIAG INJ, SC/IM CPT-4 56523 November 13, 2015 INVEGA (PT'S OWN) CPT-4 00681 November 13, 2015 Results No Known Results Summary Purpose [employer] Submission
--- OUTSIDE RECORDS SUMMARY | 2018-09-02 14:06 | XMS REPORT ---
Author Author STRICKLANDSOTO Carias Organization [facility] Address [address] [place] [address] Care Team Providers Care Circuit Board Inspector Name Role Phone SOTO STRICKLAND Unavailable PROBLEMS Type Condition ICD9-CM Code SGP68-XS Code Onset Dates Condition Status SNOMED Code Problem Other seasonal allergic rhinitis J30.2 Active 977820793 Problem Gastroesophageal reflux disease, esophagitis presence not specified K21.9 Active 702559170 Problem Tobacco abuse Z72.0 Active 070607206 Problem Seasonal allergic rhinitis due to pollen J30.1 Active 92920834 Problem History of lupus Z87.39 Active 985514953 Problem COPD exacerbation J44.1 Active 852336153 Problem OAB (overactive bladder) N32.81 Active 244187190 Problem Morbid obesity due to excess calories E66.01 Active 523948040 Problem Dyslipidemia E78.5 Active 606676560 Problem Migraine without aura and without status migrainosus, not intractable G43.009 Active 459354884 Problem Hypothyroidism (acquired) E03.9 Active 804848324 Problem Essential hypertension I10 Active 05018041 Problem Type 2 diabetes mellitus without complication, without long-term current use of insulin E11.9 Active 783793423 Problem Gastroesophageal reflux disease without esophagitis K21.9 Active 164002859 Problem Chronic pain syndrome G89.4 Active 534714421 Problem Paranoid schizophrenia F20.0 Active 03374119 Problem Primary insomnia F51.01 Active 1744831 Problem DM neuro manif type II E11.49 Active 89707010 Problem Depression with anxiety F41.8 Active 983522744 Problem Seasonal allergic rhinitis due to other allergic trigger J30.89 Active 660440268 Problem Menopausal syndrome (hot flashes) N95.1 Active 394741288 Problem Chronic obstructive pulmonary disease, unspecified COPD type J44.9 Active 94761866 Problem Schizoaffective disorder, depressive type F25.1 Active 32050739 Problem Other allergic rhinitis J30.89 Active 572553555 ALLERGIES No Information ENCOUNTERS Encounter Location Date Diagnosis [place] [id number] [place] [address] 67327- 4770 Nov, [place] [address] 45310- 1859 Sep, [place] [address] 71122- 7696 August, History of lupus Z87.39 [place] [address] 39114- 5716 August, [facility] [address] 91573 -0758 August, Seasonal allergic rhinitis, unspecified trigger J30.2 and BMI 45.0-49.9, adult Z68.42 [place] [address] 04330- 3590 Jul, Schizoaffective disorder, depressive type F25.1 [place] [address] 14997- 3707 Jul, [place] [address] 76003- 8773 Jul, Hypothyroidism (acquired) E03.9 [place] [address] 10278- 8642 Jul, Chronic obstructive pulmonary disease, unspecified COPD type J44.9 and Type 2 diabetes mellitus without complication, without long-term current use of insulin E11.9 [place] [id number] [place] [address] 50932- 7039 Jul, Paranoid schizophrenia F20.0 [place] [address] 07916- 2978 Jun, Hypothyroidism (acquired) E03.9 and Seasonal allergic rhinitis due to pollen J30.1 [facility] [address] 89898 [address] Jun, Shortness of breath at rest R06.02 ; COPD exacerbation J44.1 and BMI 45.0-49.9, adult Z68.42 [facility] [id number] [place] [address] 43826- 8471 Jun, [facility] [id number] [place] [address] 76907- 5664 Jun, Paranoid schizophrenia F20.0 ; Depression with anxiety F41.8 and BMI 45.0-49.9, adult Z68.42 [facility] [id number] [place] [address] 75653- 5899 Jun, Schizoaffective disorder, depressive type F25.1 [facility] [id number] [place] [address] [id number] Jun, Dental caries K02.9 [facility] [address] 59080- 5768 Jun, Paranoid schizophrenia F20.0 [facility] [id number] [place] [address] 77104- 6734 May, Migraine without aura and without status migrainosus, not intractable G43.009 ; DM neuro manif type II E11.49 and Type 2 diabetes mellitus without complication, without long-term current use of insulin E11.9 [facility] [address] [place] [address] 34984- 3235 May, Migraine without aura and without status migrainosus, not intractable G43.009 [facility] [id number] [place] [address] 71494- 0593 May, Depression with anxiety F41.8 [facility] [id number] [place] [address] [id number] May, [facility] [id number] [place] [address] 12005- 7938 May, [facility] [address] [place] [address]- 3743 May, [place] [address] 04767- 0360 09 May, 2017 Hypothyroidism (acquired) E03.9 [place] [address] 76571- 4745 08 May, 2017 Paranoid schizophrenia F20.0 [place] [address] 89546- 5533 May, Type 2 diabetes mellitus without complication, [...] N32.81 and Controlled substance agreement signed Z79.899 [place] [address] 28268- 6754 02 May, 2017 Controlled substance agreement signed Z79.899 [place] [address] 21100- 6432 Apr, [facility] [address] [id number] Apr, Dental examination Z01.20 [place] [address] 97439- 9599 Apr, Paranoid schizophrenia F20.0 [place] [address] 63832- 3320 Apr, Hypertension, unspecified type I10 [place] [address] 11682- 5810 Apr, Paranoid schizophrenia F20.0 [facility] [id number] [place] [address] 75842- 7381 Apr, [facility] [id number] [place] [address] 31006- 2663 Apr, Tobacco abuse Z72.0 [facility] [id number] [place] [address] 14817- 3576 Apr, [facility] [id number] [place] [address] 20560- 5375 Mar, [facility] [address] 87315- 6414 Mar, Paranoid schizophrenia F20.0 and BMI 45.0-49.9, adult Z68.42 [place] [address] 32838- 7313 Mar, Schizoaffective disorder, depressive type F25.1 [facility] [id number] [place] [address] 91255- 6235 Mar, [place] [address] 37253- 3662 Mar, Hypothyroidism, unspecified type E03.9 [facility] [id number] [place] [address] 63820- 8310 Mar, Schizoaffective disorder, depressive type F25.1 [facility] [id number] [place] [address] 12593 -1930 Feb, Gastroenteritis K52.9 and BMI 45.0-49.9, adult Z68.42 [facility] [address] 26221- 1861 Feb, [facility] [id number] [place] [address] 00833- 7038 Feb, [facility] [address] 23430- 8811 Feb, [place] [address] 67289- 1958 Feb, [place] [address] 86640- 1754 Feb, Paranoid schizophrenia F20.[address] 62114- 6613 Feb, Gastroesophageal reflux disease without esophagitis K21.9 ; Other seasonal allergic rhinitis J30.2 ; Other allergic rhinitis J30.89 ; Tobacco abuse Z72.0 and BMI 40.0-44.9, adult Z68.[address] 52364- 4173 Feb, Onychomycosis B35.1 ; Callus of foot L84 and DM neuro manif type II E11.[address] 67063- 7178 Jan, Chronic allergic rhinitis J30.9 [place] [address] 60599- 4954 Jan, [address] 32887- 5499 Jan, Schizoaffective disorder, depressive type F25.1 [place] [address] 31086- 8527 Jan, [facility] Formerly named [facility] [address] 32682 -0661 Jan, Sore throat J02.9 and Seasonal allergic rhinitis due to other allergic trigger J30.89 [place] [address] 95980- 3572 Jan, [place] [address] 15911- 8272 Jan, [facility] [address] 35728 -4776 Jan, Chronic allergic rhinitis J30.9 [facility] [id number] [place] [address] 50320- 1532 Dec, Paranoid schizophrenia F20.0 ; Primary insomnia F51.01 and Schizoaffective disorder, depressive type F25.1 [place] [id number] [place] [address] 35449- 6232 Dec, Chronic pain syndrome G89.4 ; Cervicalgia of occipito- atlanto-axial region M54.2 ; Menopausal syndrome (hot flashes) N95.1 and Encounter for immunization Z23 [place] [address] 09498- 8883 Dec, [place] [id number] [place] [address] 87921- 0022 Dec, [place] [address] 96433- 0018 Dec, Paranoid schizophrenia F20.0 [place] [id number] [place] [address] 40626- 8282 Dec, Schizoaffective disorder, depressive type F25.1 [place] [id number] [place] [address] 04190- 2589 Nov, Hypothyroidism, unspecified type E03.9 [facility] [id number] [place] [address] 72472 -5029 Nov, Acute seasonal allergic rhinitis due to other allergen J30.89 [facility] [id number] [place] [address] 81339- 6125 Nov, [facility] [id number] [place] [address] 67328- 6156 Nov, Hypothyroidism, unspecified type E03.9 and Other elevated white blood cell (WBC) count D72.828 [place] [id number] [place] [address] 59605- 1729 Nov, Schizoaffective disorder, depressive type F25.1 [place] [address] [place] [address] 03763- 4744 Nov, Paranoid schizophrenia F20.0 [facility] [address] [place] [address] 11402- 8062 Nov, Type 2 diabetes mellitus without complication, without long- term current use of insulin E11.9 ; Morbid obesity due to excess calories E66.01 and Chronic pain syndrome G89.4 [place] [id number] [place] [address] 78674- 0988 Oct, Paranoid schizophrenia F20.0 [place] [id number] [place] [address] 57714- 7084 Oct, [place] [id number] [place] [address] 46737- 2708 Oct, Schizoaffective disorder, depressive type F25.1 [place] [address] [place] [address] 09896- 8400 Oct, Hypothyroidism, unspecified type E03.9 and Other elevated white blood cell (WBC) count D72.828 [place] [id number] [place] [address] 17981- 9895 Oct, Morbid obesity due to excess calories E66.01 ; Chronic obstructive pulmonary disease, unspecified COPD type J44.9 ; History of lupus Z87.39 ; Hypothyroidism, unspecified type E03.9 ; Gastroesophageal reflux disease without esophagitis K21.9 ; Primary insomnia F51.01 and Chronic pain syndrome G89.4 [place] [address] [place] [address] 10635- 3142 Sep, [place] [id number] [place] [address] 80037- 5991 Sep, [place] [id number] [place] [address] 01185- 2172 Sep, [place] [address] [address]- 2838 Sep, Paranoid schizophrenia F20.0 [facility] [address] [place] [address] 06099- 0013 Sep, [facility] [address] [place] [address] 45601- 1869 Sep, Paranoid schizophrenia F20.0 [facility] [id number] [place] [address] 42825- 5534 Sep, [facility] [id number] [place] [address] 65939- 3703 August, Paranoid schizophrenia F20.0 [facility] [id number] [place] [address] 20156- 8136 Jul, [facility] [id number] [place] [address] 76876- 2866 Jul, Type 2 diabetes mellitus without complication, without long- term current use of insulin E11.9 ; Morbid obesity due to excess calories E66.01 ; Depression with anxiety F41.8 ; Hypothyroidism, unspecified type E03.9 ; Seasonal allergic rhinitis due to other allergic trigger J30.89 ; Pain, dental K08.89 and Gastroesophageal reflux disease without esophagitis K21.9 [facility] [address] [id number] Jul, Dental examination Z01.20 [facility] [address] [address]- 8129 07 Jul, 2016 Paranoid schizophrenia F20.0 [facility] [address] [address]- 4637 13 Jun, 2016 Paranoid schizophrenia F20.0 and Depression with anxiety F41.8 [facility] [address] [address]- 5432 10 Jun, 2016 Paranoid schizophrenia F20.0 and Depression with anxiety F41.8 [facility] [id number] [place] [address] 10313- 1342 Jun, [place] [id number] [place] [address] 56590- 7475 Jun, [facility] [place] [id number] [place] [address] 43311 -8499 Jun, Seasonal allergic rhinitis due to other allergic trigger J30.89 [facility] [address] 44450 -9714 May, Sore throat J02.9 ; Other viral agents as the cause of diseases classified elsewhere B97.89 and Acute upper respiratory infection, unspecified J06.[address] 96254- 9612 08 May, 2016 Paranoid schizophrenia F20.0 and Depression with anxiety F41.[address] 31738- 6532 Apr, Other seasonal allergic rhinitis J30.2 [place] [id number] [place] [address] 23619- 5699 Apr, Paranoid schizophrenia F20.0 and Depression with anxiety F41.8 [facility] [place] [id number] [place] [address] 76150 -6877 Apr, Bronchitis J40 and Sore throat J02.9 [place] [id number] [place] [address] 60225- 6645 Apr, Type 2 diabetes mellitus without complication, without long- term current use of insulin E11.9 [facility] [address] [place] [id number] [place] [address] 68572 -1089 Apr, Bronchitis J40 [place] [id number] [place] [address] 49404- 3880 Apr, [place] [id number] [place] [address] 37877- 7129 Apr, [id number] [place] [address] 76372- 6622 Mar, Type 2 diabetes mellitus without complication, [...] R60.9 and Other seasonal allergic rhinitis J30.2 [place] [address] 02486- 5794 Mar, Paranoid schizophrenia F20.0 and Depression with anxiety F41.8 [place] [id number] [place] [address] 00195- 8778 Feb, [place] [address] 53860- 6813 Feb, [place] [id number] [place] [address] 98689- 2354 Feb, [place] [address] 10242- 9668 Feb, [place] [id number] [place] [address] 54708- 5368 Feb, Type 2 diabetes mellitus without complication, without long- term current use of insulin E11.9 ; ARIAS on CPAP G47.33 and Preoperative evaluation to rule out surgical contraindication Z01.818 [place] [id number] [place] [address] 12750- 5873 Feb, Paranoid schizophrenia F20.0 and Depression with anxiety F41.8 [place] [id number] [place] [address] 93454- 3400 Jan, [place] [id number] [place] [address] 96015- 3114 Jan, Paranoid schizophrenia F20.0 and Depression with anxiety F41.8 [facility] [address] [facility] [id number] [place] [address]- 2951 17 Jan, 2016 [facility] [address] [facility] [id number] [place] [address] 18819- 6986 14 Jan, 2016 Muscle strain T14.8 [facility] [address] [facility] [id number] [address]- 1169 Jan, Paranoid schizophrenia F20.0 [facility] [address] [facility] [id number], [place] [address]- 2918 Jan, [facility] [address] [facility] [id number] [place] [address] 42715- 8028 Jan, Paranoid schizophrenia F20.0 and Depression with anxiety F41.8 [facility] [address] [id number] [address]- 1413 Jan, [facility] [address] [facility] [id number] [place] [address] 49945- 8781 Jan, [facility] [address] [facility] [id number], [place] [address]- 7219 28 Dec, 2015 [facility] [address] [facility] [id number] [place] [address] 03196- 9130 23 Dec, 2015 Paranoid schizophrenia F20.0 [facility] [address] [facility] [id number], [place] [address]- 3556 16 Dec, 2015 Paranoid schizophrenia F20.0 and Depression with anxiety F41.8 [facility] [address] [facility] [id number], [place] [address]- 6353 Nov, [facility] [address] [facility] [address] [id number], [place] [address]- 7821 24 Nov, 2015 Paranoid schizophrenia F20.0 [facility] [address] [id number], [place] [address]- 4383 Nov, Paranoid schizophrenia F20.0 and Depression with anxiety F41.8 [place] [address] [place] [address] 73118- 4678 Nov, Type 2 diabetes mellitus without complication, without long- term current use of insulin E11.9 ; Paranoid schizophrenia F20.0 ; Chronic obstructive pulmonary disease, unspecified COPD type J44.9 ; Morbid obesity due to excess calories E66.01 and Parkinsonian tremor G20 [place] [id number] [place] [address] 31022- 4867 Nov, [place] [id number] [place] [address] 11414- 9669 Oct, Paranoid schizophrenia F20.0 [place] [address] 04217- 9000 Oct, Paranoid schizophrenia F20.0 [place] [id number] [place] [address] 85956- 7130 Oct, Paranoid schizophrenia F20.0 and Depression with anxiety F41.8 [place] [id number] [place] [address] 23134- 8843 Oct, [place] [id number] [place] [address] 71262- 9858 Oct, Paranoid schizophrenia F20.0 and Depression with anxiety F41.8 [place] [id number] [place] [address] 88910- 8686 Oct, Nasal sore J34.89 [place] [id number] [place] [address] 64354- 5916 Oct, Type 2 diabetes mellitus without complication, without long- term current use of insulin E11.9 ; Depression with anxiety F41.8 ; Hypothyroidism, unspecified type E03.9 and History of lupus Z87.39 [place] [address] [place] [address] 27357- 7722 Oct, [place] [id number] [place] [address] 58100- 1557 01 Raji, 2016 Type 2 diabetes mellitus [...] edema R60.9 and History of lupus Z87.39 [facility] [id number] [place] [address] 42697- 9085 Feb, [facility] [address] 219002- 8383 Jan, [facility] [id number] [place] [address] 35970567- 9181 Jan, [facility] [id number] [place] [address] 06985- 1213 Jan, [facility] [id number] [place] [address] 46327- 9367 Dec, [facility] [id number] [place] [address] [id number]- 7765 Nov, [facility] [id number] [place] [address] 51138- 0256 Nov, [facility] [id number] [place] [address] [id number]- 9383 Oct, [facility] [id number] [place] [address] [id number]- 9414 Oct, [facility] [id number] [place] [address] 15441- 4966 Oct, [facility] [id number] [place] [address] 849069- 8300 Sep, Allergic rhinitis 477.9 [facility] [id number] [address]- 0859 11 Sep, 2014 Rhinitis, allergic 477.9 [facility] [address] [id number] [place] [address]- 5826 10 Sep, 2014 Rhinitis, allergic 477.9 [facility] [address] [facility] [id number] [place] [address]- 4202 Sep, [facility] [address] [facility] [id number] [place] [address]- 3931 August, [facility] [address] [id number] [place] [address]- 5614 August, [facility] [address] [facility] [id number] [place] [address]- 4568 August, [facility] [address] [place] [id number] [place] [address]- 5608 28 Jul, 2014 [facility] [address] [place] [id number] [place] [address]- 9036 14 Jul, 2014 [facility] [address] [id number] [place] [address] 13 Jul, 2014 [facility] [address] [id number], [place] [address] 16 Jun, 2014 [facility] [place] [facility] [address] [id number], [place] [address] 16 Jun, 2014 [facility] [place] [facility] [address] [id number], [place] [address] Jun, [facility] [place] [facility] [address] [id number] [place] [address] Jun, [facility] [place] [facility] [address] [id number] [place] [address] Jun, [facility] [place] [facility] [address] [id number] [place] [address] Jun, [facility] [place] [facility] [address] [id number] [place] [address] Jun, 2014 [facility] [place] [facility] [address] [id number] [place] [address] Jun, 2014 [facility] [place] [facility] [address] [id number] [place] [address] May, 2014 [facility] [place] [facility] [address] [id number] [place] [address] May, 2014 [facility] [place] [facility] [address] [id number] [place] [address] May, 2014 [facility] [place] [facility] [address] [id number] [place] [address] May, 2014 [facility] [place] [facility] [address] [id number] [place] [address] Apr, [facility] [place] [facility] [address] [id number] [place] [address] Mar, [facility] [place] [facility] [address] [address] [id number] [place] [address] Mar, [facility] [place] [facility] [address] [id number] [place] [address] Mar, [facility] [place] [facility] [address] [facility] [id number] [place] [address] 8688 Mar, [facility] [place] [facility] [address] [id number] [place] [address]46 Mar, [facility] [place] [facility] [address] [id number] [place] [address] Mar, [facility] [place] [facility] [address] [id number] [place] [address] 05 Mar, 2014 [facility] [place] [facility] [address] [id number] [place] [address]596 Mar, [facility] [place] [facility] [address] [id number] [place] [address] Mar, [facility] [place] [facility] [address] [id number] [place] [address] Feb, [facility] [place] [facility] [address] [id number] [place] [address] 64[address] Feb, [facility] [place] [facility] [address] [id number] [place] [address] Feb, [facility] [place] [facility] [address] [id number] [place] [address]- 5664 Feb, [facility] [place] [facility] [address] [id number] [place] [address] 7928 Feb, [facility] [place] [facility] [address] [id number] [place] [address]- 9021 Feb, [facility] [place] [facility] [address] [id number] [place] [address]- 7063 Feb, [facility] [place] [facility] [address] [id number] [place] [address] 0107 Feb, [facility] [place] [facility] [address] [id number] [place] [address]300 Jan, [facility] [place] [facility] [address] [id number] [place] [address] 1200 Jan, [facility] [place] [facility] [address] [id number] [place] [address]88 16 Jan, 2014 [facility] [place] [facility] [address] [id number], [place] [address] 16 Jan, 2014 [facility] [place] [facility] [address] [id number] [place] [address]- [address]33 15 Jan, 2014 [facility] [place] [facility] [address] [id number] [place] [address]- 2310 15 Jan, 2014 [facility] [place] [facility] [address] [id number], [place] [address] 14 Jan, 2014 [facility] [place] [facility] [address] [id number], [place] [address] 14 Jan, 2014 [facility] [place] [facility] [address] [id number] [place] [address]- 4975 14 Jan, 2014 [facility] [place] [facility] [address] [id number] [place] [address]- 9759 14 Jan, 2014 [facility] [place] [facility] [address] [id number] [place] [address] 9511 18 Dec, 2013 [facility] [place] [facility] [address] [id number] [place] [address] 7804 18 Dec, 2013 [facility] [place] [facility] [address] [id number] [place] [address]- 9349 Dec, [facility] [place] [facility] [address] [id number] [place] [address] 1872 Dec, [facility] [place] [facility] [address] [id number] [place] [address]- 7359 Nov, [facility] [place] [facility] [address] [id number] [place] [address] 8609 Nov, [facility] [place] [facility] [address] [id number] [place] [address]- 8056 Nov, [facility] [place] [facility] [address] [id number] [place] [address]- 7152 Nov, [facility] [place] [facility] [address] [id number] [place] [address]- 7179 Nov, [facility] [place] [facility] [address] [id number] [place] [address] 7548 Oct, [facility] [place] [facility] [address] [id number] [place] [address]- 0625 Oct, [facility] [place] [facility] [address] [id number] [place] [address]- 0028 Oct, [facility] [place] [facility] [address] [id number] [place] [address]- 1042 Oct, [facility] [place] [facility] [address] [id number] [place] [address]- [address]304 Sep, [facility] [place] [facility] [address] [id number] [place] [address]- 9148 Sep, [facility] [place] [facility] [address] [id number] [place] [address]- 9660 Sep, [facility] [place] [facility] [address] [id number] [place] [address]- 9234 Sep, [facility] [place] [facility] [address] [id number] [place] [address]- 7291 Sep, [facility] [place] [facility] [address] [id number] [place] [address]- [address] Sep, [facility] [place] [facility] [address] [id number] [place] [address]- 9614 Sep, [facility] [place] [facility] [address] [id number] [place] [address]- [address] Sep, [facility] [place] [facility] [address] [id number] [place] [address] 1257 August, [facility] [place] [facility] [address] [id number] [place] [address]- [address] August, [facility] [place] [facility] [address] [id number] [place] [address]- 3193 August, [facility] [place] [facility] [address] [id number] [place] [address]- 8895 August, [facility] [place] [facility] [address] [id number] [place] [address]- [address]127 August, [facility] [place] [facility] [address] [id number] [place] [address]- 9446 August, [facility] [place] [facility] [address] [id number] [place] [address]- 8592 August, [facility] [place] [facility] [address] [id number] [place] [address] 3880 Jul, [facility] [place] [facility] [address] [id number] [place] [address]- 2712 Jul, [facility] [place] [facility] [address] [id number] [place] [address]- 9929 Jul, [facility] [place] [facility] [address] [id number] [place] [address]- 4997 Jul, [facility] [place] [facility] [address] [id number] [place] [address]- 8209 Jul, [facility] [place] [facility] [address] [id number] [place] [address]- 3009 Jul, [facility] [place] [facility] [address] [id number] [place] [address]- 9634 Jul, [facility] [place] [facility] [address] [id number] [place] [address]- 2667 Jul, [facility] [place] [facility] [address] [id number] [place] [address]- 1325 Jul, [facility] [place] [facility] [address] [id number] [place] [address]- 6119 Jul, [facility] [place] [facility] [address] [id number] [place] [address]- 6524 Jul, [facility] [place] [facility] [address] [id number] [place] [address]- 5880 Jul, [facility] [place] [facility] [address] [id number] [place] [address]- 2907 Jun, [facility] [place] [facility] [address] [id number] [place] [address]- 3591 Jun, [facility] [place] [facility] [address] [id number] [place] [address]- 1665 Jun, [facility] [place] [facility] [address] [id number] [place] [address]- 8030 Jun, [facility] [place] [facility] [address] [id number] [place] [address]- 2234 Jun, [facility] [place] [facility] [address] [id number] [place] [address]- 1913 May, 2013 [facility] [place] [facility] [address] [id number] [place] [address]- 9416 May, [facility] [place] [facility] [address] [id number] [place] [address]- 9036 May, 2013 [facility] [place] [facility] [address] [id number] [place] [address]- 5736 May, [facility] [place] [facility] [address] [id number] [place] [address]- 0736 May, [facility] [place] [facility] [address] [facility] [id number] [place] [address]- 8836 May, [facility] [place] [facility] [address] [facility] [id number] [place] [address]- 7138 May, [facility] [place] [facility] [address] [facility] [id number] [place] [address]- 1996 May, [facility] [place] [facility] [address] [facility] [id number] [place] [address]- 1719 Mar, [facility] [place] [facility] [address] [facility] [id number] [place] [address]- 8734 Mar, [facility] [place] [facility] [address] [facility] [id number] [place] [address]- 8152 Mar, [facility] [place] [facility] [address] [id number] [place] [address]- 6934 Mar, [facility] [place] [facility] [address] [id number] [place] [address]- 5946 Mar, [facility] [place] [facility] [address] [facility] [id number] [place] [address]- 7251 Mar, [facility] [place] [facility] [address] [facility] [id number] [place] [address]- 9537 Feb, [facility] [place] [facility] [address] [id number] [place] [address]- 7340 15 Feb, 2013 [facility] [place] [facility] [address] [id number] [place] [address]- 8897 Jan, [facility] [place] [facility] [address] [id number] [place] [address]- 1536 Jan, [facility] [place] [facility] [address] [id number] [place] [address]- 8391 Jan, [facility] [place] [facility] [address] [id number] [place] [address]- 8442 Jan, [facility] [place] [facility] [address] [id number] [place] [address]- 5099 Jan, [facility] [place] [facility] [address] [id number] [place] [address]- 6909 Jan, [facility] [place] [facility] [address] [id number], [place] [address]- 3331 Jan, [facility] [place] [facility] [address] [id number] [place] [address]- 0341 Jan, [facility] [place] [facility] [address] [id number], [place] [address]- 2090 Jan, [facility] [place] [facility] [address] [id number], [place] [address]- 0903 Jan, [facility] [place] [facility] [address] [id number], [place] [address]- 1694 Dec, [facility] [place] [facility] [address] [id number] [place] [address]- 0769 Nov, [facility] [place] [facility] [address] [id number], [place] [address]- 0247 Nov, [facility] [place] [facility] [address] [id number] [place] [address]- 2125 Nov, [facility] [place] [facility] [id number], [place] [address]- 0[address] Oct, [facility] [id number] [address] Oct, [facility] [id number], [place] [address] 3403 August, [facility] [id number], [place] [address]- 5683 Apr, [facility] [address] [id number], [place] [address]- 5549 Apr, [facility] [id number] [place] [address] 805738- 4875 Feb, [facility] [id number] [place] [address]- 2761 Feb, [facility] [id number] [place] [address]23[address]- 3036 Dec, [facility] [id number], [place] [address]- 7946 Dec, [facility] [id number], [place] [address]- 1714 Oct, [facility] [id number], [place] [address]- 7830 Oct, [facility] [id number], [place] [address]- 2090 Oct, [facility] [id number], [place] [address] 6338 Jul, IMMUNIZATIONS No Known Immunizations SOCIAL HISTORY [...] for psychosis/mental illness , last one in [facility] 4 years ago
--- OUTSIDE RECORDS SUMMARY | 2018-09-02 14:07 | XMS REPORT ---
Author Author STRICKLANDSOTO Carias Organization [facility] Address [address] [place] [address] Care Team Providers Care Pharmacist Aide Name Role Phone STRICKLANDSOTO Carias Unavailable PROBLEMS Type Condition ICD9-CM Code DZE86-HD Code Onset Dates Condition Status SNOMED Code Problem Other seasonal allergic rhinitis J30.2 Active 036484525 Problem Gastroesophageal reflux disease, esophagitis presence not specified K21.9 Active 493971939 Problem Tobacco abuse Z72.0 Active 255942874 Problem Seasonal allergic rhinitis due to pollen J30.1 Active 74753930 Problem History of lupus Z87.39 Active 736315439 Problem COPD exacerbation J44.1 Active 275851834 Problem OAB (overactive bladder) N32.81 Active 223233572 Problem Morbid obesity due to excess calories E66.01 Active 590994167 Problem Dyslipidemia E78.5 Active 690986049 Problem Migraine without aura and without status migrainosus, not intractable G43.009 Active 542869034 Problem Hypothyroidism (acquired) E03.9 Active 509049960 Problem Essential hypertension I10 Active 38940909 Problem Type 2 diabetes mellitus without complication, without long-term current use of insulin E11.9 Active 895431643 Problem Gastroesophageal reflux disease without esophagitis K21.9 Active 679824495 Problem Chronic pain syndrome G89.4 Active 777319221 Problem Paranoid schizophrenia F20.0 Active 54121645 Problem Primary insomnia F51.01 Active 1295671 Problem DM neuro manif type II E11.49 Active 82486876 Problem Depression with anxiety F41.8 Active 927388767 Problem Seasonal allergic rhinitis due to other allergic trigger J30.89 Active 671631625 Problem Menopausal syndrome (hot flashes) N95.1 Active 386470389 Problem Chronic obstructive pulmonary disease, unspecified COPD type J44.9 Active 38595778 Problem Schizoaffective disorder, depressive type F25.1 Active 64019537 Problem Other allergic rhinitis J30.89 Active 549931536 ALLERGIES No Information ENCOUNTERS Encounter Location Date Diagnosis [facility] [id number] [address] Nov, [facility] [id number] [place] [address] 26748- 6953 Oct, [facility] [id number] [place] [address] 31485- 8373 Oct, [facility] [id number] [place] [address] 74717- 2758 Oct, [facility] [id number] [place] [address] 71441- 4104 Sep, Paranoid schizophrenia F20.0 [facility] [id number] [place] [address] 90375- 1872 Sep, Paranoid schizophrenia F20.0 and BMI 45.0-49.9, adult Z68.42 [facility] [id number] [place] [address] 59322- 7393 Sep, Schizoaffective disorder, depressive type F25.1 [facility] [id number] [place] [address] 59110- 9131 Sep, [facility] [id number] [place] [address] 01013- 4257 Sep, Paranoid schizophrenia F20.0 [facility] [id number] [place] [address] 24576- 6803 Sep, [facility] [id number] [place] [address] 84787- 8835 Sep, Hypothyroidism (acquired) E03.9 [facility] [id number] [place] [address] 48148- 0722 Sep, [facility] [id number] [place] [address] 82738- 1225 August, Schizoaffective disorder, depressive type F25.1 [facility] [id number] [place] [address] 70271- 8266 August, [facility] [address] 95655- 0981 August, [facility] [id number] [place] [address] 61257- 9497 August, [facility] [address] 13322- 4748 August, Paranoid schizophrenia F20.0 [facility] [id number] [place] [address] 84959- 7374 August, History of lupus Z87.39 and Chronic pain syndrome G89.4 [place] [address] 15409- 2045 August, [facility] [address] 20474 -8262 August, Seasonal allergic rhinitis, unspecified trigger J30.2 and BMI 45.0-49.9, adult Z68.42 [place] [address] 35286- 5381 Jul, Schizoaffective disorder, depressive type F25.1 [place] [id number] [place] [address] 98423- 0133 Jul, [place] [address] 60138- 8830 Jul, Hypothyroidism (acquired) E03.9 [place] [id number] [place] [address] 83676- 0745 Jul, Chronic obstructive pulmonary disease, unspecified COPD type J44.9 and Type 2 diabetes mellitus without complication, without long-term current use of insulin E11.9 [place] [id number] [place] [address] 01766- 0941 Jul, Paranoid schizophrenia F20.0 [place] [address] 14785- 0572 Jun, Hypothyroidism (acquired) E03.9 and Seasonal allergic rhinitis due to pollen J30.1 [facility] [address] 05590 -8003 Jun, Shortness of breath at rest R06.02 ; COPD exacerbation J44.1 and BMI 45.0-49.9, adult Z68.42 [facility] [address] 92971- 2843 Jun, [facility] [address] 88837- 5380 Jun, Paranoid schizophrenia F20.0 ; Depression with anxiety F41.8 and BMI 45.0-49.9, adult Z68.42 [facility] [address] 52695- 5612 20 Jun, 2017 Schizoaffective disorder, depressive type F25.1 [facility] [address] [id number] Jun, Dental caries K02.9 [facility] [address] 63350- 2393 Jun, Paranoid schizophrenia F20.0 [facility] [address] 57908- 0896 May, Migraine without aura and without status migrainosus, not intractable G43.009 ; DM neuro manif type II E11.49 and Type 2 diabetes mellitus without complication, without long-term current use of insulin E11.9 [facility] [address] 62288- 1709 May, Migraine without aura and without status migrainosus, not intractable G43.009 [facility] [address] 81275- 9537 May, Depression with anxiety F41.8 [facility] [address] [id number] May, [facility] [address], [place] [address] 9599 May, [place] [id number] [place] [address] 01103- 6421 May, [facility] [id number] [place] [address] 40243- 1762 May, Hypothyroidism (acquired) E03.9 [place] [id number] [place] [address] 33278- 1430 May, Paranoid schizophrenia F20.0 [place] [id number] [place] [address] 83238- 3361 May, Type 2 diabetes mellitus without complication, [...] N32.81 and Controlled substance agreement signed Z79.899 [place] [id number] [place] [address] 81268- 9380 May, Controlled substance agreement signed Z79.899 [place] [address] [address]- 0265 Apr, [facility] [id number] [place] [address] [id number] Apr, Dental examination Z01.20 [place] [id number] [place] [address] 30732- 0142 Apr, Paranoid schizophrenia F20.0 [place] [id number] [place] [address] 89228- 9858 Apr, Hypertension, unspecified type I10 [facility] [id number] [place] [address] 71965- 5429 Apr, Paranoid schizophrenia F20.0 [facility] [id number] [place] [address] 13689- 7448 Apr, [facility] [id number] [place] [address] 47428- 4645 Apr, Tobacco abuse Z72.0 [place] [id number] [place] [address] 78996- 0208 Apr, [facility] [id number] [place] [address] 88475- 4422 Mar, [place] [id number] [place] [address] 29981- 5150 Mar, Paranoid schizophrenia F20.0 and BMI 45.0-49.9, adult Z68.42 [place] [id number] [place] [address] 32476- 7449 Mar, Schizoaffective disorder, depressive type F25.1 [place] [id number] [place] [address] 61080- 6636 Mar, [facility] [id number] [place] [address] 83302- 4864 Mar, Hypothyroidism, unspecified type E03.9 [facility] [id number] [place] [address] 22181- 2930 Mar, Schizoaffective disorder, depressive type F25.1 [facility] [id number] [place] [address] 21423 -1902 Feb, Gastroenteritis K52.9 and BMI 45.0-49.9, adult Z68.42 [facility] [id number] [place] [address] 31469- 5524 Feb, [facility] [address] 02178- 9301 Feb, [place] [address] 43845- 7191 Feb, [place] [address] 27684- 1941 Feb, [place] [address] 86786- 8096 Feb, Paranoid schizophrenia F20.[address] 79717- 9538 Feb, Gastroesophageal reflux disease without esophagitis K21.9 ; Other seasonal allergic rhinitis J30.2 ; Other allergic rhinitis J30.89 ; Tobacco abuse Z72.0 and BMI 40.0-44.9, adult Z68.[address] 57963- 1641 Feb, Onychomycosis B35.1 ; Callus of foot L84 and DM neuro manif type II E11.49 [place] [address] 00122- 6684 Jan, Chronic allergic rhinitis J30.9 [place] [address] 72344- 5033 Jan, [place] [address] 14883- 6539 Jan, Schizoaffective disorder, depressive type F25.1 [place] [address] 74583- 9257 Jan, [facility] [address] 75659 -2506 Jan, Sore throat J02.9 and Seasonal allergic rhinitis due to other allergic trigger J30.89 [place] [address] 07798- 2099 Jan, [facility] [id number] [place] [address] 61745- 1782 Jan, [facility] [id number] [place] [address] 88917 -0350 Jan, Chronic allergic rhinitis J30.9 [facility] [id number] [place] [address] 42590- 4988 Dec, Paranoid schizophrenia F20.0 ; Primary insomnia F51.01 and Schizoaffective disorder, depressive type F25.1 [facility] [id number] [place] [address] 95006- 7160 Dec, Chronic pain syndrome G89.4 ; Cervicalgia of occipito- atlanto-axial region M54.2 ; Menopausal syndrome (hot flashes) N95.1 and Encounter for immunization Z23 [facility] [id number] [place] [address] 83029- 2727 14 Dec, 2016 [facility] [id number] [place] [address] 83419- 7904 Dec, [facility] [id number] [place] [address] 90393- 8841 Dec, Paranoid schizophrenia F20.0 [facility] [id number] [place] [address] 49814- 2852 Dec, Schizoaffective disorder, depressive type F25.1 [facility] [id number] [place] [address] 38820- 6113 Nov, Hypothyroidism, unspecified type E03.9 [facility] [id number] [place] [address] 78902 -9690 Nov, Acute seasonal allergic rhinitis due to other allergen J30.89 [facility] [id number] [place] [address] 59544- 0797 Nov, [facility] [id number] [place] [address] 50532- 8559 Nov, Hypothyroidism, unspecified type E03.9 and Other elevated white blood cell (WBC) count D72.828 [place] [id number] [place] [address] 52612- 0244 Nov, Schizoaffective disorder, depressive type F25.1 [place] [id number] [place] [address] 50628- 8087 Nov, Paranoid schizophrenia F20.0 [place] [id number] [place] [address] 22254- 4947 Nov, Type 2 diabetes mellitus without complication, without long- term current use of insulin E11.9 ; Morbid obesity due to excess calories E66.01 and Chronic pain syndrome G89.4 [place] [id number] [place] [address] 11281- 8997 Oct, Paranoid schizophrenia F20.0 [place] [id number] [place] [address] 54101- 2079 Oct, [place] [id number] [place] [address] 92423- 9074 Oct, Schizoaffective disorder, depressive type F25.1 [place] [address] [place] [address] 42976- 2377 Oct, Hypothyroidism, unspecified type E03.9 and Other elevated white blood cell (WBC) count D72.828 [place] [id number] [place] [address] 52275- 4591 Oct, Morbid obesity due to excess calories E66.01 ; Chronic obstructive pulmonary disease, unspecified COPD type J44.9 ; History of lupus Z87.39 ; Hypothyroidism, unspecified type E03.9 ; Gastroesophageal reflux disease without esophagitis K21.9 ; Primary insomnia F51.01 and Chronic pain syndrome G89.4 [place] [id number] [place] [address] 89410- 8808 Sep, [place] [address], [place] [address]- 4082 29 Sep, 2016 [facility] [address], [place] [address]- 8515 Sep, [facility] [address], [place] [address]- 8771 Sep, Paranoid schizophrenia F20.0 [facility] [id number] [place] [address] 97243- 8525 Sep, [facility] [id number] [place] [address] 83315- 6982 Sep, Paranoid schizophrenia F20.0 [facility] [id number] [place] [address] 04384- 8610 Sep, [facility] [id number] [place] [address] 01763- 4652 August, Paranoid schizophrenia F20.0 [facility] [address], [place] [address]- 2087 Jul, [facility] [id number] [place] [address] 46277- 8073 Jul, Type 2 diabetes mellitus without complication, without long- term current use of insulin E11.9 ; Morbid obesity due to excess calories E66.01 ; Depression with anxiety F41.8 ; Hypothyroidism, unspecified type E03.9 ; Seasonal allergic rhinitis due to other allergic trigger J30.89 ; Pain, dental K08.89 and Gastroesophageal reflux disease without esophagitis K21.9 [facility] [id number] [id number] Jul, Dental examination Z01.20 [facility] [id number] [place] [address] 30994- 6102 07 Jul, 2016 Paranoid schizophrenia F20.0 [facility] [address], [place] [address]- 9244 Jun, Paranoid schizophrenia F20.0 and Depression with anxiety F41.8 [place] [id number] [place] [address] 35949- 3202 10 Jun, 2016 Paranoid schizophrenia F20.0 and Depression with anxiety F41.8 [place] [id number] [place] [address] 77792- 5368 09 Jun, 2016 [place] [id number] [place] [address] 93925- 0806 Jun, [facility] [place] [id number] [place] [address] 19861 -5027 Jun, Seasonal allergic rhinitis due to other allergic trigger J30.89 [facility] [id number] [place] [address] 48519 -7093 May, Sore throat J02.9 ; Other viral agents as the cause of diseases classified elsewhere B97.89 and Acute upper respiratory infection, unspecified J06.9 [place] [id number] [place] [address] 91920- 6323 May, Paranoid schizophrenia F20.0 and Depression with anxiety F41.8 [place] [id number] [place] [address] 58376- 3133 Apr, Other seasonal allergic rhinitis J30.2 [place] [id number] [place] [address] 85524- 7110 Apr, Paranoid schizophrenia F20.0 and Depression with anxiety F41.8 [facility] [address] [id number] [place] [address] 00688 -0248 Apr, Bronchitis J40 and Sore throat J02.[address] 01298- 9718 Apr, Type 2 diabetes mellitus without complication, without long- term current use of insulin E11.9 [facility] [id number] [place] [address] 12187 -1415 Apr, Bronchitis J40 [place] [id number] [place] [address] 17072- 2430 Apr, [place] [id number] [place] [address] 10733- 7744 Apr, [place] [id number] [place] [address] 13785- 6822 Mar, Type 2 diabetes mellitus without complication, [...] R60.9 and Other seasonal allergic rhinitis J30.2 [place] [id number] [place] [address] 16887- 5555 Mar, Paranoid schizophrenia F20.0 and Depression with anxiety F41.8 [place] [id number] [place] [address] 71138- 0420 Feb, [place] [id number] [place] [address] 05633- 9059 Feb, [place] [id number] [place] [address] 17333- 1615 Feb, [place] [id number] [place] [address] 81908- 6656 Feb, [place] [id number] [place] [address] 65601- 0019 Feb, Type 2 diabetes mellitus without complication, without long- term current use of insulin E11.9 ; ARIAS on CPAP G47.33 and Preoperative evaluation to rule out surgical contraindication Z01.818 [place] [id number] [place] [address] 39124- 4881 09 Feb, 2016 Paranoid schizophrenia F20.0 and Depression with anxiety F41.8 [place] [id number] [address]- 6838 Jan, [facility] [address] [facility] [id number] [place] [address] 90122- 1987 Jan, Paranoid schizophrenia F20.0 and Depression with anxiety F41.8 [facility] [id number] [address]- 6255 17 Jan, 2016 [facility] [address] [facility] [id number] [place] [address] 62930- 6584 14 Jan, 2016 Muscle strain T14.8 [facility] [address] [facility] [id number] [place] [address] 29669- 4169 10 Jan, 2016 Paranoid schizophrenia F20.0 [facility] [id number], [place] [address]- 2337 Jan, [facility] [id number] [place] [address] 04540- 7846 Jan, Paranoid schizophrenia F20.0 and Depression with anxiety F41.8 [facility] [id number] [address]- 9594 Jan, [facility] [id number] [place] [address] 84027- 1332 Jan, [facility] [id number] [address]- 2124 28 Dec, 2015 [facility] [address] [facility] [id number], [place] [address]- 5146 23 Dec, 2015 Paranoid schizophrenia F20.0 [facility] [address] [facility] [id number] [address]- 9255 16 Dec, 2015 Paranoid schizophrenia F20.0 and Depression with anxiety F41.8 [facility] [address] [facility] [id number], [place] [address]- 8594 Nov, [facility] [id number] [address]- 9603 Nov, Paranoid schizophrenia F20.0 [place] [address], [place] [address]- 5135 Nov, Paranoid schizophrenia F20.0 and Depression with anxiety F41.8 [place] [id number] [place] [address] 16796- 3547 Nov, Type 2 diabetes mellitus without complication, without long- term current use of insulin E11.9 ; Paranoid schizophrenia F20.0 ; Chronic obstructive pulmonary disease, unspecified COPD type J44.9 ; Morbid obesity due to excess calories E66.01 and Parkinsonian tremor G20 [place] [id number] [place] [address] 19166- 8887 Nov, [place] [id number] [place] [address] 15866- 7158 Oct, Paranoid schizophrenia F20.0 [place] [id number] [place] [address] 09877- 8032 Oct, Paranoid schizophrenia F20.0 [place] [id number] [place] [address] 50025- 4281 Oct, Paranoid schizophrenia F20.0 and Depression with anxiety F41.8 [place] [id number] [place] [address] 03049- 2174 Oct, [place] [id number] [place] [address] 12926- 3657 Oct, Paranoid schizophrenia F20.0 and Depression with anxiety F41.8 [place] [id number] [place] [address] 92542- 2424 Oct, Nasal sore J34.89 [place] [id number] [place] [address] 99673- 6213 Oct, Type 2 diabetes mellitus without complication, without long- term current use of insulin E11.9 ; Depression with anxiety F41.8 ; Hypothyroidism, unspecified type E03.9 and History of lupus Z87.39 [facility] [id number] [place] [address] 04123- 8647 Oct, [facility] [address] 17615- 1809 Oct, Type 2 diabetes mellitus without complication, [...] of lupus Z87.39 [facility] [id number] [place] [address] 85124- 4411 Feb, [facility] [address] 51181- 7168 Jan, [facility] [id number] [place] [address] 14113- 4846 Jan, [facility] [id number] [place] [address] 00276827- 3488 Jan, [facility] [id number] [place] [address] 195488- 6927 Dec, [facility] [id number] [place] [address] 02654- 7453 Nov, [facility] [id number] [place] [address] 48827- 6737 Nov, [facility] [id number] [place] [address]- 8186 Oct, [facility] [id number] [place] [address]- 9918 Oct, [facility] [address] [place] [address] 17 Oct, 2014 [facility] [address] [facility] [id number] [place] [address] Sep, Allergic rhinitis 477.9 [facility] [address] [facility] [id number] [place] [address] 11 Sep, 2014 Rhinitis, allergic 477.9 [facility] [id number] [place] [address], [place] [address] Sep, Rhinitis, allergic 477.9 [facility] [id number] [place] [address] Sep, [facility] [id number] [address] August, [facility] [id number] [place] [address] August, [facility] [id number], [place] [address] August, [facility] [place] [facility] [id number] [place] [address] Jul, [facility] [id number] [address] Jul, [facility] [place] [facility] [id number] [address] Jul, [facility] [facility] [place] [facility] [address], [place] [address] 16 Jun, 2014 [facility] [place] [facility] [address] [id number] [address] Jun, [facility] [place] [facility] [address] [id number] [address] Jun, [facility] [place] [facility] [address] [id number], [place] [address] Jun, [facility] [place] [facility] [id number] [place] [address] Jun, 2014 [facility] [place] [facility] [address] [id number] [place] [address] Jun, 2014 [facility] [place] [facility] [address] [id number] [place] [address] Jun, 2014 [facility] [place] [facility] [address] [id number] [place] [address] 2070 Jun, 2014 [facility] [place] [facility] [address] [id number] [place] [address] 9485 May, 2014 [facility] [place] [facility] [address] [id number] [place] [address] 8555 May, 2014 [facility] [place] [facility] [address] [id number] [place] [address] 7797 May, 2014 [facility] [place] [facility] [address] [id number] [place] [address]- 9014 May, 2014 [facility] [place] [facility] [address] [id number] [place] [address]- 4044 Apr, [facility] [place] [facility] [address] [id number] [place] [address]- 1371 Mar, [facility] [place] [facility] [address] [id number] [place] [address]- 4289 Mar, [facility] [place] [facility] [address] [id number] [place] [address]- 5204 Mar, [facility] [place] [facility] [address] [id number] [place] [address]- 0577 Mar, [facility] [place] [facility] [address] [id number] [place] [address] Mar, [facility] [place] [facility] [address] [id number] [place] [address] Mar, [facility] [place] [facility] [address] [id number] [place] [address] Mar, [facility] [place] [facility] [address] [id number] [place] [address]- 0291 Mar, [facility] [place] [facility] [address] [id number] [place] [address] Mar, [facility] [place] [facility] [address] [id number] [place] [address]- 4401 Feb, [facility] [place] [facility] [address] [id number] [place] [address]- 7574 Feb, [facility] [place] [facility] [address] [id number] [place] [address]- 9630 Feb, [facility] [place] [facility] [address] [id number] [place] [address]- 2440 Feb, [facility] [place] [facility] [address] [id number] [place] [address]- 7516 Feb, [facility] [place] [facility] [address] [id number] [place] [address]- 0222 Feb, [facility] [place] [facility] [address] [id number] [place] [address]- 3525 Feb, [facility] [place] [facility] [address] [id number] [place] [address]- 6471 Feb, [facility] [place] [facility] [address] [id number] [place] [address]- 0020 Jan, [facility] [place] [facility] [address] [id number] [place] [address]- 5193 Jan, [facility] [place] [facility] [address] [id number] [place] [address]- 6340 Jan, [facility] [place] [facility] [address] [id number] [place] [address]- 9824 16 Jan, 2014 [facility] [place] [facility] [address] [id number] [place] [address] 15 Jan, 2014 [facility] [place] [facility] [address] [id number] [place] [address]- 8841 15 Jan, 2014 [facility] [place] [facility] [address] [id number] [place] [address]- 3073 14 Jan, 2014 [facility] [place] [facility] [address] [id number] [place] [address]- 5772 14 Jan, 2014 [facility] [place] [facility] [address] [id number] [place] [address]- 7715 14 Jan, 2014 [facility] [place] [facility] [address] [id number] [place] [address]- 8205 14 Jan, 2014 [facility] [place] [facility] [address] [id number] [place] [address]- 0560 18 Dec, 2013 [facility] [place] [facility] [address] [id number] [place] [address]- 1302 18 Dec, 2013 [facility] [place] [facility] [address] [id number] [place] [address]- 0890 10 Dec, 2013 [facility] [place] [facility] [address] [id number] [place] [address]- 2196 10 Dec, 2013 [facility] [place] [facility] [address] [id number] [place] [address]- 5732 Nov, [facility] [place] [facility] [address] [id number] [place] [address]- 4196 Nov, [facility] [place] [facility] [address] [id number] [place] [address]- 6303 Nov, [facility] [place] [facility] [address] [id number] [place] [address]- 1673 Nov, [facility] [place] [facility] [address] [id number] [place] [address]- 2655 Nov, [facility] [place] [facility] [address] [id number] [place] [address]- 2993 Oct, [facility] [place] [facility] [address] [id number] [place] [address]- 0134 Oct, [facility] [place] [facility] [address] [id number] [place] [address]- 2923 Oct, [facility] [place] [facility] [address] [id number] [place] [address]- 0819 Oct, [facility] [place] [facility] [address] [id number] [place] [address]- 9106 Sep, [facility] [place] [facility] [address] [id number] [place] [address]- 6449 Sep, [facility] [place] [facility] [address] [id number] [place] [address]- 1752 Sep, [facility] [place] [facility] [address] [id number] [place] [address]- 2890 Sep, [facility] [place] [facility] [address] [id number] [place] [address]- 6959 Sep, [facility] [place] [facility] [address] [id number] [place] [address]- 0137 Sep, [facility] [place] [facility] [address] [id number] [place] [address]- 1468 Sep, [facility] [place] [facility] [address] [id number] [place] [address]- 0918 Sep, [facility] [place] [facility] [address] [id number] [place] [address]- 7075 August, [facility] [place] [facility] [address] [id number] [place] [address]- 2988 August, [facility] [place] [facility] [address] [id number] [place] [address]- 0028 August, [facility] [place] [facility] [address] [id number] [place] [address]- 6874 August, [facility] [place] [facility] [address] [id number] [place] [address]- 4253 August, [facility] [place] [facility] [address] [id number] [place] [address]- 5781 August, [facility] [place] [facility] [address] [id number] [place] [address]- 2514 August, [facility] [place] [facility] [address] [id number] [place] [address]- 3461 Jul, [facility] [place] [facility] [address] [id number] [place] [address]- 9848 Jul, [facility] [place] [facility] [address] [id number] [place] [address]- 9974 Jul, [facility] [place] [facility] [address] [id number] [place] [address]- 6395 Jul, [facility] [place] [facility] [address] [id number] [place] [address]- 2583 Jul, [facility] [place] [facility] [address] [id number] [place] [address]- 7982 Jul, [facility] [place] [facility] [address] [id number] [place] [address]- 9304 Jul, [facility] [place] [facility] [address] [id number] [place] [address]- 9797 Jul, [facility] [place] [facility] [address] [id number] [place] [address]- 3035 Jul, [facility] [place] [facility] [address] [id number] [place] [address]- 4577 Jul, [facility] [place] [facility] [address] [id number] [place] [address]- 4841 Jul, [facility] [place] [facility] [address] [id number] [place] [address]- 9656 Jul, [facility] [place] [facility] [address] [id number] [place] [address] Jun, [facility] [place] [facility] [address] [id number] [place] [address] Jun, [facility] [place] [facility] [address] [id number] [place] [address]- 9318 Jun, [facility] [place] [facility] [address] [id number] [place] [address]- 8819 Jun, [facility] [place] [facility] [address] [id number] [place] [address]- 8858 Jun, [facility] [place] [facility] [address] [id number] [place] [address]- 4822 May, [facility] [place] [facility] [address] [id number] [place] [address]- 7889 May, [facility] [place] [facility] [address] [id number] [place] [address]- 5670 May, [facility] [place] [facility] [address] [id number] [place] [address]- 0606 May, [facility] [place] [facility] [address] [id number] [place] [address]- 7523 May, [facility] [place] [facility] [address] [id number] [place] [address]- 8320 May, [facility] [place] [facility] [address] [id number] [place] [address]- 9545 May, [facility] [place] [facility] [address] [id number] [place] [address]- 5996 May, [facility] [place] [facility] [address] [id number] [place] [address]- 9022 Mar, [facility] [place] [facility] [address] [id number] [place] [address]- 3193 Mar, [facility] [place] [facility] [address] [id number] [place] [address] Mar, [facility] [place] [facility] [address] [id number] [place] [address] Mar, [facility] [place] [facility] [address] [id number] [place] [address]- 4797 Mar, [facility] [place] [facility] [address] [id number] [place] [address]- 1443 Mar, [facility] [place] [facility] [address] [id number] [place] [address]- 1204 Feb, [facility] [place] [facility] [address] [id number] [place] [address]- 8161 Feb, [facility] [place] [facility] [address] [id number] [place] [address]- 7990 Jan, [facility] [place] [facility] [address] [id number] [place] [address]- 2345 Jan, [facility] [place] [facility] [address] [id number] [place] [address]- 1367 Jan, [facility] [place] [facility] [address] [id number] [place] [address]- 7289 Jan, [facility] [place] [facility] [address] [id number] [place] [address]- 3091 Jan, [facility] [place] [facility] [address] [id number] [place] [address]- 8841 Jan, [facility] [place] [facility] [address] [id number], [place] [address]- 2846 Jan, [facility] [place] [facility] [address] [id number], [place] [address]- 4218 Jan, [facility] [place] [facility] [address] [id number], [place] [address]- 2097 08 Jan, 2013 [facility] [place] [facility] [address] [id number] [place] [address]- 7599 Jan, [facility] [place] [facility] [address] [id number], [place] [address]- 2376 16 Dec, 2012 [facility] [place] [facility] [address] [id number] [place] [address]- 0195 Nov, [facility] [place] [facility] [address] [id number], [place] [address]- 8346 Nov, [facility] [address], [place] [address]- 4307 Nov, [facility] [address], [place] [address]- 8192 Oct, [facility] [address], [place] [address]- 7036 Oct, [facility] [address], [place] [address]- 1703 August, [facility] [id number] [place] [address] 8927 Apr, [facility] [address], [place] [address]- 7368 Apr, [facility] [address], [place] [address]- 8722 Feb, [facility] [address], [place] [address]- 8937 Feb, [facility] [address] [address]37 Dec, [facility] [address], [place] [address]- 8655 Dec, [facility] [address], [place] [address]- 1086 Oct, [facility] [address], [place] [address]- 9164 Oct, [facility] [address], [place] [address]- 4841 Oct, [facility] [address] [address] Jul, IMMUNIZATIONS No Known Immunizations SOCIAL HISTORY Never Assessed REASON FOR VISIT requesting medication PLAN OF CARE VITAL SIGNS MEDICATIONS Unknown [...] illness , last one in [facility] 4 years ago
--- OUTSIDE RECORDS SUMMARY | 2018-09-02 14:07 | XMS REPORT ---
Author Author EM SOTO Organization [facility] Address [address] [place] [address] Care Team Providers Care Jet Dyeing Machine Operator Name Role Phone STRICKLANDSOTO Carias Unavailable PROBLEMS Type Condition ICD9-CM Code OYF32-ML Code Onset Dates Condition Status SNOMED Code Problem OAB (overactive bladder) N32.81 Active 901938800 Problem Chronic pain syndrome G89.4 Active 272711016 Problem Depression with anxiety F41.8 Active 134068768 Problem History of lupus Z87.39 Active 435532142 Problem Peripheral edema R60.9 Active 595235637 Problem Parkinsonian tremor G20 Active 978548787 Problem Hypothyroidism, unspecified type E03.9 Active 59125810 Problem Type 2 diabetes mellitus without complication, without long-term current use of insulin E11.9 Active 362557614 Problem Paranoid schizophrenia F20.0 Active 27288099 Problem Other seasonal allergic rhinitis J30.2 Active 494667984 Problem Gastroesophageal reflux disease, esophagitis presence not specified K21.9 Active 440917405 Problem Morbid obesity due to excess calories E66.01 Active 969860997 Problem Chronic obstructive pulmonary disease, unspecified COPD type J44.9 Active 96620612 ALLERGIES Unknown Allergies SOCIAL HISTORY No smoking Hx information available PLAN OF CARE VITAL SIGNS MEDICATIONS Unknown Medications RESULTS No Results PROCEDURES No Known procedures IMMUNIZATIONS No Known Immunizations
--- OUTSIDE RECORDS SUMMARY | 2018-09-02 14:08 | XMS REPORT ---
Author Author EM SOTO Organization [facility] Address [address] [place] [address] Care Team Providers Care Hvac Mechanic Name Role Phone STRICKLANDSOTO Carias Unavailable PROBLEMS Type Condition ICD9-CM Code MEG95-PH Code Onset Dates Condition Status SNOMED Code Problem Type 2 diabetes mellitus without complication, without long-term current use of insulin E11.9 Active 934510580 Problem OAB (overactive bladder) N32.81 Active 472704496 Problem History of lupus Z87.39 Active 930133986 Problem Other elevated white blood cell (WBC) count D72.828 Active 982919945 Problem Primary insomnia F51.01 Active 5811528 Problem Gastroesophageal reflux disease without esophagitis K21.9 Active 072293779 Problem ARIAS on CPAP G47.33 Active 22206653 Problem Schizoaffective disorder, depressive type F25.1 Active 41923889 Problem Seasonal allergic rhinitis due to other allergic trigger J30.89 Active 851163372 Problem Chronic obstructive pulmonary disease, unspecified COPD type J44.9 Active 63689428 Problem Morbid obesity due to excess calories E66.01 Active 407894995 Problem Hypothyroidism, unspecified type E03.9 Active 25289972 Problem Peripheral edema R60.9 Active 993898376 Problem Depression with anxiety F41.8 Active 195300195 Problem Paranoid schizophrenia F20.0 Active 58591615 Problem Chronic pain syndrome G89.4 Active 443623884 Problem Parkinsonian tremor G20 Active 351542862 ALLERGIES Unknown Allergies SOCIAL HISTORY No smoking Hx information available PLAN OF CARE VITAL SIGNS MEDICATIONS Medication Instructions Dosage Frequency Start Date End Date Duration Status Pravastatin Sodium 10 mg Orally Once a day 1 tablet 24h 30 days Active Claritin 10MG Orally Once a day 1 tablet 24h 90 days Active RESULTS No Results PROCEDURES No Known procedures IMMUNIZATIONS No Known Immunizations
--- OUTSIDE RECORDS SUMMARY | 2018-09-02 14:08 | XMS REPORT ---
Author Author UMESH PINEDA [facility] [employer] Address Unknown Phone Unavailable Care Team Providers Care Gis Developer Name Role Phone UMESH PINEDA CP Unavailable [...] Instructions Start Date End Date Status Dosage Spironolactone [facility] 00702674470 50MG Orally Once a day 1 [address] ProAir HFA [facility] [address]-85 90 mcg/actuation Inhalation every 4 hrs Nov 2 puffs as needed metformin [facility] [address]-50 1,000 mg orally 2 times a day July 05, 2014 1 tablet Tizanidine HCl [facility] [address]-31 4 MG Orally 3 times a day 1 1/[address] [facility] [address]-01 600 MG Orally Three times a day [address] [facility] 92846867292 0.625 MG/GM insert 0.5 gram by vaginal route twice weekly Pravastatin Sodium [facility] 54244127326 10 MG Orally Once a day 1 tablet Triamcinolone Acetonide [facility] 77779794716 0.5 % APPLY TOPICALLY TWICE DAILY Norvasc [facility] [address]-88 10 mg Orally Once a day [address] [facility] [address]-37 50 mg Orally Once a day 1 tablet Loxapine Succinate [facility] [address]-93 25 MG Orally 4 times a day PRN [address] [facility] [address]-95 150 mg July 05, 2013 1 Daily by Oral route 1 time per day Take at HS for sleep Invega Sustenna [facility] [address]-79 156 MG/ML Intramuscular Once q monthly on the 1 drop Sertraline HCl [facility] [address]-50 100 MG Orally Once a day 1 tablet Trazodone HCl [facility] [address]-53 150 MG Orally Once a day 1 tablet at bedtime as needed sertraline [facility] 0 100 mg Once a day November 15, 2012 take 1 tablet ( 100 mg) by oral route once daily Nexium [facility] [address]-93 40 mg Orally Once a day 1 capsule Levothyroxine Sodium [facility] 51227504732 150 MCG Orally Once a day [address] [facility] [address]-37 0.05 % November 15, 2012 instill 1 drop into affected eye(s) by ophthalmic route 2 times per day Vistaril [facility] [address]-36 25 MG Orally every 8 hrs Jan 29, 2016 1 capsule as needed Myrbetriq [facility] [address]-01 50 MG Orally Once a day 1 tablet Breo Ellipta [facility] [address]-69 100-25 mcg/dose Inhalation Once a day July 05, 2014 inhale 1 puff by inhalation route once daily at the same time each day Mupirocin [facility] [address]-43 2 % Externally Three times a day Apr 20, 2014 1 Application by Nasal route 2 times per day to each nare--disp 22 gram tube Claritin [facility] [address]-63 10 mg Orally Once a day 1 tablet Procedures Procedure Coding System Code Date Office Visit, Est Pt., Level 2 CPT-4 79343 Jan 29, 2016 [facility] VISIT ESTABLISHED PATIENT CPT-4 G0467 Jan 29, 2016 Vital Signs Date/Time: Jan 29, 2016 Cardiac Monitoring Heart Rate 94 bpm Weight 212.1 lbs Height 57 in BMI 45.89 Index Blood Pressure Diastolic 80 mmHg Blood Pressure Systolic 128 mmHg Results No Known Results Summary Purpose [employer] Submission
--- OUTSIDE RECORDS SUMMARY | 2018-09-02 14:09 | XMS REPORT ---
Author Author UMESH PINEDA Organization [employer] Address Unknown Phone Unavailable Care Team Providers Care Ground Support Equipment Mechanic Name Role Phone UMESH PINEDA CP Unavailable [...] System Code Date THER/PROPH/DIAG INJ, SC/IM CPT-4 33219 November 20, 2015 INVEGA (PT'S OWN) CPT-4 61185 November 20, 2015 Results No Known Results Summary Purpose [employer] Submission
--- OUTSIDE RECORDS SUMMARY | 2018-09-02 14:09 | XMS REPORT ---
Author Author ADELINA Arndt Organization [facility] Address [address] [place] [address] Care Team Providers Care Script Girl Name Role Phone janelLUISNEHEMIAS ADELINA Unavailable PROBLEMS Type Condition ICD9-CM Code YZT94-CZ Code Onset Dates Condition Status SNOMED Code Problem Other seasonal allergic rhinitis J30.2 Active 236083205 Problem Gastroesophageal reflux disease, esophagitis presence not specified K21.9 Active 911721502 Problem Tobacco abuse Z72.0 Active 151695771 Problem Seasonal allergic rhinitis due to pollen J30.1 Active 11052160 Problem History of lupus Z87.39 Active 719236066 Problem COPD exacerbation J44.1 Active 875249804 Problem OAB (overactive bladder) N32.81 Active 470765586 Problem Morbid obesity due to excess calories E66.01 Active 782785841 Problem Dyslipidemia E78.5 Active 465769953 Problem Migraine without aura and without status migrainosus, not intractable G43.009 Active 657017322 Problem Hypothyroidism (acquired) E03.9 Active 824791960 Problem Essential hypertension I10 Active 42347047 Problem Type 2 diabetes mellitus without complication, without long-term current use of insulin E11.9 Active 535114181 Problem Gastroesophageal reflux disease without esophagitis K21.9 Active 352618765 Problem Chronic pain syndrome G89.4 Active 736578394 Problem Paranoid schizophrenia F20.0 Active 24474606 Problem Primary insomnia F51.01 Active 6215424 Problem DM neuro manif type II E11.49 Active 17876871 Problem Depression with anxiety F41.8 Active 970295767 Problem Seasonal allergic rhinitis due to other allergic trigger J30.89 Active 598206163 Problem Menopausal syndrome (hot flashes) N95.1 Active 426010786 Problem Chronic obstructive pulmonary disease, unspecified COPD type J44.9 Active 59039849 Problem Schizoaffective disorder, depressive type F25.1 Active 40534320 Problem Other allergic rhinitis J30.89 Active 862878539 ALLERGIES Substance Reaction Event Type Date Status Sulfamethoxazole-Trimethoprim Unknown Drug Allergy Nov, Active Penicillin V Potassium Unknown Drug Allergy Nov, Active ENCOUNTERS Encounter Location Date Diagnosis [place] [id number] [place] [address] 09570- 4330 Nov, [facility] [address] 39[address]- 3961 Sep, [place] [address] 09338- 1966 Jul, Schizoaffective disorder, depressive type F25.1 [place] [address] 00854- 4274 Jul, [place] [address] 53040- 3868 Jul, Hypothyroidism (acquired) E03.9 [place] [address] 61410- 5603 Jul, Chronic obstructive pulmonary disease, unspecified COPD type J44.9 and Type 2 diabetes mellitus without complication, without long-term current use of insulin E11.9 [place] [address] 32913- 5065 Jul, Paranoid schizophrenia F20.0 [place] [address] 50966- 8284 Jun, Hypothyroidism (acquired) E03.9 and Seasonal allergic rhinitis due to pollen J30.1 [facility] [address] 41253 -[address] Jun, Shortness of breath at rest R06.02 ; COPD exacerbation J44.1 and BMI 45.0-49.9, adult Z68.42 [facility] [id number] [place] [address] 52125- 4296 Jun, [facility] [address] 30664- 8316 Jun, Paranoid schizophrenia F20.0 ; Depression with anxiety F41.8 and BMI 45.0-49.9, adult Z68.42 [facility] [address] [address] [id number]- 8354 Jun, Schizoaffective disorder, depressive type F25.1 [facility] [address] [id number] Jun, Dental caries K02.9 [facility] [address] 82714- 8672 Jun, Paranoid schizophrenia F20.0 [place] [address] 82957- 6017 May, Migraine without aura and without status migrainosus, not intractable G43.009 ; DM neuro manif type II E11.49 and Type 2 diabetes mellitus without complication, without long-term current use of insulin E11.9 [facility] [address] 02607- 3052 May, Migraine without aura and without status migrainosus, not intractable G43.009 [facility] [address] 21842- 2546 May, Depression with anxiety F41.8 [facility] [id number] [place] [address] [id number] May, [facility] [address] 35719- 8849 May, [facility] [address] 08086- 3940 May, [place] [address] [id number]- 9472 May, Hypothyroidism (acquired) E03.9 [facility] [address] 47706- 3143 May, Paranoid schizophrenia F20.0 [facility] [id number] [place] [address] 28249- 7007 08 May, 2017 Type 2 diabetes mellitus [...] N32.81 and Controlled substance agreement signed Z79.899 [place] [address] 51336- 4789 02 May, 2017 Controlled substance agreement signed Z79.899 [place] [address] 15928- 5490 Apr, [facility] [address] [id number] Apr, Dental examination Z01.20 [place] [address] 64131- 2295 Apr, Paranoid schizophrenia F20.0 [place] [address] 05678- 0682 Apr, Hypertension, unspecified type I10 [facility] [address] 27461- 3823 Apr, Paranoid schizophrenia F20.0 [place] [address] 11302- 6252 05 Apr, 2017 [facility] [address] 37566- 6479 Apr, Tobacco abuse Z72.0 [place] [address] [place] [address]- 9777 Apr, [facility] [id number] [place] [address] 04675- 6673 Mar, [facility] [id number] [place] [address] 04773- 8729 Mar, Paranoid schizophrenia F20.0 and BMI 45.0-49.9, adult Z68.42 [facility] [id number] [place] [address] 86550- 7325 Mar, Schizoaffective disorder, depressive type F25.1 [facility] [address] 78449- 2116 Mar, [facility] [address] 72953- 9133 Mar, Hypothyroidism, unspecified type E03.9 [facility] [id number] [place] [address] 65276- 7932 Mar, Schizoaffective disorder, depressive type F25.1 [facility] [id number] [place] [address] 35792 -8578 Feb, Gastroenteritis K52.9 and BMI 45.0-49.9, adult Z68.42 [facility] [id number] [place] [address] 90978- 5567 Feb, [facility] [id number] [place] [address] 53423- 6087 Feb, [facility] [id number] [place] [address] 25442- 8319 Feb, [facility] [address] 03123- 8335 16 Feb, 2017 [facility] [id number] [place] [address] 74607- 4065 10 Feb, 2017 Paranoid schizophrenia F20.0 [facility] [address] [place] [address]- 2384 Feb, Gastroesophageal reflux disease without esophagitis K21.9 ; Other seasonal allergic rhinitis J30.2 ; Other allergic rhinitis J30.89 ; Tobacco abuse Z72.0 and BMI 40.0-44.9, adult Z68.41 [place] [address] 00364- 4940 Feb, Onychomycosis B35.1 ; Callus of foot L84 and DM neuro manif type II E11.49 [place] [address] 39763- 4932 Jan, Chronic allergic rhinitis J30.9 [place] [address] 04042- 0571 Jan, [place] [address] 60741- 7589 Jan, Schizoaffective disorder, depressive type F25.1 [place] [address] 82667- 2850 Jan, [facility] [address] 34759 -1245 Jan, Sore throat J02.9 and Seasonal allergic rhinitis due to other allergic trigger J30.89 [place] [address] 93890- 2577 Jan, [place] [address] 03926- 3734 Jan, [facility] [address] 57218 -9122 Jan, Chronic allergic rhinitis J30.9 [place] [address] 05864- 0719 Dec, Paranoid schizophrenia F20.0 ; Primary insomnia F51.01 and Schizoaffective disorder, depressive type F25.1 [place] [address] [place] [address]- 3137 Dec, Chronic pain syndrome G89.4 ; Cervicalgia of occipito- atlanto-axial region M54.2 ; Menopausal syndrome (hot flashes) N95.1 and Encounter for immunization Z23 [facility] [id number] [place] [address] 51179- 1554 14 Dec, 2016 [place] [address] 52674- 9810 Dec, [place] [address] 04317- 3015 08 Dec, 2016 Paranoid schizophrenia F20.0 [place] [id number] [place] [address] 26682- 7003 Dec, Schizoaffective disorder, depressive type F25.1 [place] [id number] [place] [address] 23972- 5847 Nov, Hypothyroidism, unspecified type E03.9 [facility] [id number] [place] [address] 52340 -5931 Nov, Acute seasonal allergic rhinitis due to other allergen J30.89 [place] [id number] [place] [address] 53491- 2784 Nov, [facility] [id number] [place] [address] 30409- 9376 Nov, Hypothyroidism, unspecified type E03.9 and Other elevated white blood cell (WBC) count D72.828 [place] [id number] [place] [address] 34420- 4230 Nov, Schizoaffective disorder, depressive type F25.1 [place] [id number] [place] [address] 80954- 2438 Nov, Paranoid schizophrenia F20.0 [facility] [id number] [place] [address] 60168- 1058 Nov, Type 2 diabetes mellitus without complication, without long- term current use of insulin E11.9 ; Morbid obesity due to excess calories E66.01 and Chronic pain syndrome G89.4 [place] [id number] [place] [address] 36886- 5601 Oct, Paranoid schizophrenia F20.0 [place] [id number] [place] [address] 24413- 9395 Oct, [place] [id number] [place] [address] 87661- 4846 Oct, Schizoaffective disorder, depressive type F25.1 [place] [address] 56408- 6846 Oct, Hypothyroidism, unspecified type E03.9 and Other elevated white blood cell (WBC) count D72.828 [place] [id number] [place] [address] 86592- 7087 Oct, Morbid obesity due to excess calories E66.01 ; Chronic obstructive pulmonary disease, unspecified COPD type J44.9 ; History of lupus Z87.39 ; Hypothyroidism, unspecified type E03.9 ; Gastroesophageal reflux disease without esophagitis K21.9 ; Primary insomnia F51.01 and Chronic pain syndrome G89.4 [place] [id number] [place] [address] 23143- 5775 Sep, [place] [id number] [place] [address] 59415- 1905 Sep, [place] [id number] [place] [address] 54019- 2199 Sep, [place] [id number] [place] [address] 82064- 3953 Sep, Paranoid schizophrenia F20.0 [place] [id number] [place] [address] 44345- 3975 Sep, [place] [id number] [place] [address] 90428- 3913 Sep, Paranoid schizophrenia F20.0 [facility] [address] [address]- 6299 Sep, [facility] [id number] [place] [address] 04900- 7420 August, Paranoid schizophrenia F20.0 [facility] [id number] [place] [address] 80075- 7195 Jul, [facility] [id number] [place] [address] 38152- 4370 Jul, Type 2 diabetes mellitus without complication, without long- term current use of insulin E11.9 ; Morbid obesity due to excess calories E66.01 ; Depression with anxiety F41.8 ; Hypothyroidism, unspecified type E03.9 ; Seasonal allergic rhinitis due to other allergic trigger J30.89 ; Pain, dental K08.89 and Gastroesophageal reflux disease without esophagitis K21.9 [facility] [address] [place] [address] [id number] Jul, Dental examination Z01.20 [place] [id number] [place] [address] 43539- 2849 Jul, Paranoid schizophrenia F20.0 [place] [id number] [place] [address] 11545- 6028 Jun, Paranoid schizophrenia F20.0 and Depression with anxiety F41.8 [place] [id number] [place] [address] 18706- 1520 Jun, Paranoid schizophrenia F20.0 and Depression with anxiety F41.8 [facility] [address] [address]- 0207 Jun, [place] [id number] [place] [address] 49793- 4199 Jun, [facility] [address] [address]36 Jun, Seasonal allergic rhinitis due to other allergic trigger J30.89 [facility] [id number] [place] [address] 65029 -8529 25 May, 2016 Sore throat J02.9 ; Other viral agents as the cause of diseases classified elsewhere B97.89 and Acute upper respiratory infection, unspecified J06.9 [place] [id number] [place] [address] 92991- 8390 08 May, 2016 Paranoid schizophrenia F20.0 and Depression with anxiety F41.8 [place] [address] 03573- 2231 Apr, Other seasonal allergic rhinitis J30.2 [place] [address] 77711- 0788 Apr, Paranoid schizophrenia F20.0 and Depression with anxiety F41.8 [facility] [place] [address] 42934 -8919 Apr, Bronchitis J40 and Sore throat J02.9 [place] [id number] [place] [address] 41272- 3381 03 Apr, 2016 Type 2 diabetes mellitus without complication, without long- term current use of insulin E11.9 [facility] [place] [id number] [place] [address] 09503 -3428 Apr, Bronchitis J40 [place] [id number] [place] [address] 28434- 5731 Apr, [place] [id number] [place] [address] 30718- 1850 Apr, [place] [address] 40961- 5116 Mar, Type 2 diabetes mellitus without complication, [...] R60.9 and Other seasonal allergic rhinitis J30.2 [place] [address] 78821- 3268 Mar, Paranoid schizophrenia F20.0 and Depression with anxiety F41.8 [place] [address] 33294- 8003 Feb, [place] [address] 16427- 9466 Feb, [place] [address] 14091- 3141 Feb, [place] [address] 70023- 3460 Feb, [place] [address] 00457- 6207 Feb, Type 2 diabetes mellitus without complication, without long- term current use of insulin E11.9 ; ARIAS on CPAP G47.33 and Preoperative evaluation to rule out surgical contraindication Z01.818 [place] [address] 50305- 1015 Feb, Paranoid schizophrenia F20.0 and Depression with anxiety F41.8 [place] [address] 01836- 4790 Jan, [place] [address] 54285- 5719 Jan, Paranoid schizophrenia F20.0 and Depression with anxiety F41.8 [place] [address] 89243- 7590 Jan, [place] [address] 85102- 4893 Jan, Muscle strain T14.8 [place] [address] 95031- 1931 Jan, Paranoid schizophrenia F20.0 [facility] [address] [address]- 3011 Jan, [facility] [id number] [place] [address] 90096- 1680 Jan, Paranoid schizophrenia F20.0 and Depression with anxiety F41.8 [facility] [id number] [place] [address] 26237- 6348 Jan, [facility] [id number] [place] [address] 50483- 5341 Jan, [facility] [id number] [place] [address] 05315- 7167 28 Dec, 2015 [facility] [address] [place] [address] 58157- 0960 23 Dec, 2015 Paranoid schizophrenia F20.0 [facility] [address], [place] [address]- 7855 16 Dec, 2015 Paranoid schizophrenia F20.0 and Depression with anxiety F41.8 [facility] [address], [place] [address]- 3626 Nov, [facility] [address], [place] [address]- 1559 Nov, Paranoid schizophrenia F20.0 [facility] [address], [place] [address]- 6099 Nov, Paranoid schizophrenia F20.0 and Depression with anxiety F41.8 [facility] [address], [place] [address]- 8672 05 Nov, 2015 Type 2 diabetes mellitus without complication, without long- term current use of insulin E11.9 ; Paranoid schizophrenia F20.0 ; Chronic obstructive pulmonary disease, unspecified COPD type J44.9 ; Morbid obesity due to excess calories E66.01 and Parkinsonian tremor G20 [facility] [address] [address]- 6288 Nov, [place] [id number] [place] [address] 07006- 5897 Oct, Paranoid schizophrenia F20.0 [place] [id number] [place] [address] 62066- 4035 Oct, Paranoid schizophrenia F20.0 [place] [id number] [place] [address] 83500- 0322 Oct, Paranoid schizophrenia F20.0 and Depression with anxiety F41.8 [place] [id number] [place] [address] 15386- 6169 Oct, [place] [id number] [place] [address] 34863- 1893 Oct, Paranoid schizophrenia F20.0 and Depression with anxiety F41.8 [place] [id number] [place] [address] 89104- 4268 Oct, Nasal sore J34.89 [place] [id number] [place] [address] 11230- 1216 Oct, Type 2 diabetes mellitus without complication, without long- term current use of insulin E11.9 ; Depression with anxiety F41.8 ; Hypothyroidism, unspecified type E03.9 and History of lupus Z87.39 [place] [address] [place] [address] 23071- 5214 Oct, [place] [id number] [place] [address] 60233- 1268 Oct, Type 2 diabetes mellitus without complication, [...] edema R60.9 and History of lupus Z87.39 [facility] [id number] [place] [address] 38306- 6188 Feb, [facility] [id number] [place] [address] 14579- 7633 Jan, [facility] [address] 94135- 9641 Jan, [facility] [id number] [place] [address] 25689- 6392 Jan, [facility] [id number] [place] [address] 24318- 2707 Dec, [facility] [id number] [place] [address] 00480- 9724 Nov, [facility] [id number] [place] [address] 97663- 6798 Nov, [facility] [id number] [place] [address] 03279- 2856 Oct, [facility] [id number] [place] [address] 76335- 2753 Oct, [facility] [id number] [place] [address] 46785- 1845 Oct, [facility] [id number] [place] [address] 22192- 6487 Sep, Allergic rhinitis 477.9 [facility] [id number] [place] [address] 73132- 3568 Sep, Rhinitis, allergic 477.9 [facility] [id number] [place] [address] 73106- 7284 Sep, Rhinitis, allergic 477.9 [facility] [id number] [place] [address] 59794- 2866 Sep, [facility] [place] [facility] [address] [id number] [place] [address]- 4240 August, [facility] [place] [facility] [address] [id number] [place] [address]- 5400 August, [facility] [place] [facility] [address] [id number] [place] 9967 August, [facility] [place] [facility] [address] [id number] [place] [address]- 1278 Jul, [facility] [place] [facility] [address] [id number] [place] [address]- 9329 Jul, [facility] [place] [facility] [address] [id number] [place] [address]- 5391 Jul, [facility] [place] [facility] [address] [id number] [place] [address]- 8341 Jun, [facility] [place] [facility] [address] [id number] [place] [address]- 5762 Jun, [facility] [place] [facility] [address] [id number] [place] [address]- 0019 Jun, [facility] [place] [facility] [address] [id number] [place] [address] Jun, [facility] [place] [facility] [address] [id number] [place] [address] Jun, [facility] [place] [facility] [address] [id number], [place] [address] Jun, [facility] [place] [facility] [address] [id number] [place] [address] Jun, [facility] [place] [facility] [address] [id number] [place] [address] Jun, [facility] [place] [facility] [address] [id number] [place] [address] May, [facility] [place] [facility] [address] [id number] [place] [address] 17 May, 2014 [facility] [address] [id number] [place] [address] May, 2014 [facility] [place] [facility] [address] [id number] [place] [address] May, 2014 [facility] [address] [id number] [place] [address] Apr, [facility] [place] [facility] [address] [id number] [place] [address] Mar, [facility] [address] [id number] [place] [address] Mar, [facility] [address] [id number] [place] [address] Mar, [facility] [place] [facility] [address] [id number] [place] [address] Mar, [facility] [address] [id number] [place] [address] Mar, [facility] [place] [facility] [address] [id number] [place] [address] Mar, SELECT [facility] [address] [facility] [id number] [place] [address] Mar, [facility] [place] [facility] [address] [id number] [place] [address] Mar, [facility] [place] [facility] [address] [id number] [place] [address] Mar, [facility] [place] [facility] [address] [id number] [place] [address] Feb, [facility] [place] [facility] [address] [id number] [place] [address] Feb, [facility] [place] [facility] [address] [id number] [place] [address] Feb, [facility] [place] [facility] [address] [id number] [place] [address] 17 Feb, 2014 [facility] [place] [facility] [address] [id number] [place] [address] 39[address] 14 Feb, 2014 [facility] [place] [facility] [address] [id number] [place] [address] 6[address] 14 Feb, 2014 [facility] [place] [facility] [address] [id number] [place] [address] 1541 Feb, [facility] [place] [facility] [address] [id number] [place] [address] 7736 12 Feb, 2014 [facility] [place] [facility] [address] [id number] [place] [address]99 23 Jan, 2014 [facility] [place] [facility] [address] [id number] [place] [address]84 23 Jan, 2014 [facility] [place] [facility] [address] [id number] [place] [address] 2832 16 Jan, 2014 [facility] [place] [facility] [address] [id number] [place] [address]233 16 Jan, 2014 [facility] [place] [facility] [address] [id number] [address] 15 Jan, 2014 [facility] [place] [facility] [address] [id number], [place] [address] 15 Jan, 2014 [facility] [place] [facility] [address] [id number], [place] [address] 47[address] 14 Jan, 2014 [facility] [place] [facility] [address] [id number] [place] [address] 5978 14 Jan, 2014 [facility] [place] [facility] [address] [id number] [place] [address] 8463 14 Jan, 2014 [facility] [place] [facility] [address] [id number] [address] 14 Jan, 2014 [facility] [place] [facility] [address] [id number], [place] [address] Dec, [facility] [place] [facility] [address] [id number] [place] [address] 5703 Dec, [facility] [place] [facility] [address] [id number] [place] [address] 1555 Dec, [facility] [place] [facility] [address] [id number] [place] [address] 3698 Dec, [facility] [place] [facility] [address] [id number] [place] [address] 9363 Nov, [facility] [place] [facility] [address] [id number] [place] [address] 4415 Nov, [facility] [place] [facility] [address] [id number] [place] [address] 9841 Nov, [facility] [place] [facility] [address] [id number] [place] [address] 2675 Nov, [facility] [place] [facility] [address] [id number] [place] [address] 4880 Nov, [facility] [place] [facility] [address] [id number] [place] [address] 4080 Oct, [facility] [place] [facility] [address] [id number] [place] [address] 9818 Oct, [facility] [place] [facility] [address] [id number] [place] [address] 2213 Oct, [facility] [place] [facility] [address] [id number] [place] [address] 3544 Oct, [facility] [place] [facility] [address] [id number] [place] [address] 3806 Sep, [facility] [place] [facility] [address] [id number] [place] [address] 2488 Sep, [facility] [place] [facility] [address] [id number] [place] [address] 6785 Sep, [facility] [place] [facility] [address] [id number] [place] [address] 4360 Sep, [facility] [place] [facility] [address] [id number] [place] [address] 9271 Sep, [facility] [place] [facility] [address] [id number] [place] [address] Sep, [facility] [place] [facility] [address] [id number] [place] [address] 0991 Sep, [facility] [place] [facility] [address] [id number] [place] [address] 9357 Sep, [facility] [place] [facility] [address] [id number] [place] [address] 8824 August, [facility] [place] [facility] [address] [id number] [place] [address] 4035 August, [facility] [place] [facility] [address] [id number] [place] [address] 1629 August, [facility] [place] [facility] [address] [id number] [place] [address] 0433 August, [facility] [place] [facility] [address] [id number] [place] [address]- 3897 August, [facility] [place] [facility] [address] [id number] [place] [address] 4114 August, [facility] [place] [facility] [address] [id number] [place] [address] 1418 August, [facility] [place] [facility] [address] [id number] [place] [address] 1941 Jul, [facility] [place] [facility] [address] [id number] [place] [address] 5034 Jul, [facility] [place] [facility] [address] [id number] [place] [address] 3593 Jul, [facility] [place] [facility] [address] [id number] [place] [address]- 7098 Jul, [facility] [place] [facility] [address] [id number] [place] [address] 5496 Jul, [facility] [place] [facility] [address] [id number] [place] [address] 1861 Jul, [facility] [place] [facility] [address] [id number] [place] [address] 3150 Jul, [facility] [place] [facility] [address] [id number] [place] [address] 9250 Jul, [facility] [place] [facility] [address] [id number] [place] [address] 8720 Jul, [facility] [place] [facility] [address] [id number] [place] [address] 8416 Jul, [facility] [place] [facility] [address] [id number] [place] [address]- 6256 Jul, [facility] [place] [facility] [address] [id number] [place] [address] 4516 Jul, [facility] [place] [facility] [address] [id number] [place] [address] 5640 Jun, [facility] [place] [facility] [address] [id number] [place] [address] 6212 Jun, [facility] [place] [facility] [address] [id number] [place] [address]- 0357 Jun, [facility] [place] [facility] [address] [id number] [place] [address]- 6513 Jun, [facility] [place] [facility] [address] [id number] [place] [address] 4939 Jun, [facility] [place] [facility] [address] [id number] [place] [address]- 3087 May, [facility] [place] [facility] [address] [id number] [place] [address]- 6031 May, [facility] [place] [facility] [address] [id number] [place] [address]- 3779 May, 2013 [facility] [address] [id number] [place] [address]- 3666 May, 2013 [facility] [place] [facility] [address] [id number] [place] [address]- 1416 May, 2013 [facility] [place] [facility] [address] [facility] [id number] [place] [address]- 8356 May, 2013 [facility] [place] [facility] [address] [id number] [place] [address]- 5401 May, 2013 [facility] [place] [facility] [address] [id number] [place] [address]- 4463 May, 2013 [facility] [place] [facility] [address] [facility] [id number] [place] [address]- 9462 Mar, [facility] [place] [facility] [address] [facility] [id number] [place] [address]- 7527 Mar, [facility] [place] [facility] [address] [facility] [id number] [place] [address]- 2370 Mar, [facility] [place] [facility] [address] [facility] [id number] [place] [address]- 5208 Mar, [facility] [place] [facility] [address] [facility] [id number] [place] [address] Mar, [facility] [place] [facility] [address] [facility] [id number] [place] [address]- 6406 Mar, [facility] [place] [facility] [address] [facility] [id number] [place] [address] 2549 Feb, [facility] [place] [facility] [address] [facility] [id number] [place] [address]- 8006 Feb, [facility] [place] [facility] [address] [facility] [id number] [place] [address]- 5856 Jan, [facility] [place] [facility] [address] [facility] [id number] [place] [address]- 8067 Jan, [facility] [place] [facility] [address] [id number] [place] [address]- 9056 Jan, [facility] [place] [facility] [address] [id number] [place] [address]- 3847 Jan, [facility] [place] [facility] [address] [id number] [place] [address]- 5402 Jan, [facility] [place] [facility] [address] [id number] [place] [address]- 3063 Jan, [facility] [place] [facility] [address] [id number] [place] [address]- 0604 Jan, [facility] [place] [facility] [address] [id number] [place] [address]- 6602 Jan, [facility] [place] [facility] [address] [id number] [place] [address]- 2679 Jan, [facility] [place] [facility] [address] [id number] [place] [address]- 8024 Jan, [facility] [place] [facility] [address] [id number] [place] [address]- 3287 Dec, [facility] [place] [facility] [address] [id number] [place] [address]- 7001 Nov, [facility] [place] [facility] [address] [id number], [place] [address] 7224 Nov, [facility] [place] [facility] [address] [id number], [place] [address]- 9637 Nov, [facility] [place] [facility] [address] [id number] [place] [address]- 5370 Oct, [facility] [place] [facility] [address] [id number] [place] [address]- 2270 Oct, [facility] [place] [facility] [address] [id number] [place] [address]- 8628 August, [facility] [place] [facility] [address] [id number], [place] [address] 6178 Apr, [facility] [address] [id number], [place] [address] 4496 Apr, [facility] [id number] [address] Feb, [facility] [id number], [place] [address] 0518 Feb, [facility] [id number], [place] [address] 4874 Dec, [facility] [id number], [place] [address]- 2072 Dec, [facility] [id number], [place] [address]- 7361 Oct, [facility] [id number], [place] [address]- 0079 Oct, [facility] [address] [id number], [place] [address]- 1340 Oct, [facility] [id number], [place] [address] 7614 Jul, IMMUNIZATIONS Vaccine Route Administration Date Status DEXAMETHASONE 4MG/ML (PER 1 MG) IM Intramuscular Dec 22, 2016 Administered DEPO MEDROL 40 MG/ML IM Intramuscular Dec 22, 2016 Administered SOCIAL HISTORY Never Assessed REASON FOR VISIT eyes are watering, sneezing, nausea, sinus pressure for a week now. [email or web address] PLAN OF CARE Activity Details Follow Up prn Reason: VITAL SIGNS Height 57 in 2016-12-22 Weight 226.6 lbs 2016-12-22 Temperature 97.3 degrees Fahrenheit 2016-12-22 Heart Rate 80 bpm 2016-12-22 Respiratory Rate 20 2016-12-22 BMI 49.03 kg/m2 2016-12-22 Blood pressure systolic 128 mmHg 2016-12-22 Blood pressure diastolic 80 mmHg 2016-12-22 MEDICATIONS Medication Instructions Dosage Frequency Start Date End Date Duration Status Loxapine Succinate 25 MG Orally 4 times a day PRN 1 capsule Active Norvasc 10 mg Orally Once a day 1 tablet 24h 30 Active Invega Sustenna 234 MG/1.5ML Intramuscular Once a month, on the 10th of every month 1.5 ml 30 days Active Breo Ellipta 100-25 MCG/INH Inhalation Once a day 1 puff 24h Active Premarin 0.625 MG/GM insert 0.5 gram by vaginal route twice weekly Active Restasis 0.05 % instill 1 drop into affected eye(s) by ophthalmic route 2 times per day Oct, Active Tizanidine HCl 4 MG Orally 3 times a day 1 1/2 tablets 8h Active Levothyroxine Sodium 175 MCG Orally Once a day 1 tablet 24h Active Nexium 40 mg Orally Once a day 1 capsule 24h 90 days Active Sertraline HCl 50 MG 1 tablet Once a day take with 100mg tablet Orally 30 day(s) 30 Active Neurontin 600 MG Orally 2 times a day 1 tablet 12h Nov, 90 days Active Januvia 50MG TAKE ONE TABLET BY MOUTH ONCE DAILY 90 Active Sertraline HCl 100 MG Orally Once a day take with 50mg (150mg a day) 1 tablet 30 days Active Pravastatin Sodium 20 MG Orally Once a day 1 tablet 24h Active Metformin HCl 1000 MG Orally Twice a day 1 tablet with meals 12h Mar, 90 days Active Cetirizine HCl 10MG TAKE ONE TABLET BY MOUTH ONCE DAILY 30 Active Plaquenil 200 mg Orally Once a day 1 tablet with food or milk 24h 30 Active Clonazepam 0.25 MG Orally Twice a day 1 tablet on the tongue and allow to dissolve 12h Jun, Active Lisinopril 2.5 MG Orally Once a day 1 tablet 24h Nov, 90 days Active Ventolin HFA 108 (90 Base) MCG/ACT Inhalation every 4 hrs 2 puffs as needed 4h Feb, 90 days Active Ambien 5 MG Orally Once a day 1 tablet at bedtime 24h Oct, 30 days Active HydrOXYzine HCl 50 MG Orally every 8 hrs 1-2 tablet as needed 8h 30 days Active Myrbetriq 50 MG Orally Once a day 1 tablet 24h 90 days Active Ibuprofen 800MG TAKE ONE TABLET BY MOUTH THREE TIMES DAILY NEEDED 90 Active Spironolactone 50MG Orally Once a day 1 tablet 24h 30 Active RESULTS No Results PROCEDURES Procedure Date Ordered Result Body Site [facility] VISIT ESTABLISHED PATIENT Dec 22, 2016 THER/PROPH/DIAG INJ, SC/IM Dec 22, 2016 DEPO MEDROL 40 MG/ML Dec 22, 2016 DEXAMETHASONE 4MG/ML (PER 1 MG) Dec 22, 2016 INSTRUCTIONS MEDICATIONS ADMINISTERED No Known Medications MEDICAL [...] for psychosis/mental illness , last one in [facility] 4 years ago
--- OUTSIDE RECORDS SUMMARY | 2018-09-02 14:10 | XMS REPORT ---
Author Author STRICKLANDSOTO Carias Organization [facility] Address [address] [place] [address] Care Team Providers Care Ip Paralegal Name Role Phone STRICKLANDSOTO Carias Unavailable PROBLEMS Type Condition ICD9-CM Code RIW16-OU Code Onset Dates Condition Status SNOMED Code Problem Other seasonal allergic rhinitis J30.2 Active 945266682 Problem Gastroesophageal reflux disease, esophagitis presence not specified K21.9 Active 812297891 Problem Tobacco abuse Z72.0 Active 396655372 Problem Seasonal allergic rhinitis due to pollen J30.1 Active 08353923 Problem History of lupus Z87.39 Active 781717558 Problem COPD exacerbation J44.1 Active 704595361 Problem OAB (overactive bladder) N32.81 Active 986386838 Problem Morbid obesity due to excess calories E66.01 Active 850723021 Problem Dyslipidemia E78.5 Active 484069050 Problem Migraine without aura and without status migrainosus, not intractable G43.009 Active 172022740 Problem Hypothyroidism (acquired) E03.9 Active 497603999 Problem Essential hypertension I10 Active 27819241 Problem Type 2 diabetes mellitus without complication, without long-term current use of insulin E11.9 Active 884095544 Problem Gastroesophageal reflux disease without esophagitis K21.9 Active 081803786 Problem Chronic pain syndrome G89.4 Active 615509346 Problem Paranoid schizophrenia F20.0 Active 82872069 Problem Primary insomnia F51.01 Active 0743855 Problem DM neuro manif type II E11.49 Active 18278895 Problem Depression with anxiety F41.8 Active 256630904 Problem Seasonal allergic rhinitis due to other allergic trigger J30.89 Active 198802610 Problem Menopausal syndrome (hot flashes) N95.1 Active 092388459 Problem Chronic obstructive pulmonary disease, unspecified COPD type J44.9 Active 53985256 Problem Schizoaffective disorder, depressive type F25.1 Active 05708136 Problem Other allergic rhinitis J30.89 Active 400735838 ALLERGIES No Information ENCOUNTERS Encounter Location Date Diagnosis [facility] [id number] [address] Nov, [facility] [id number] [place] [address] 55075- 1513 Oct, [facility] [id number] [place] [address] 70828- 7370 Oct, [facility] [id number] [place] [address] 35368- 3134 Oct, [facility] [id number] [place] [address] 17860- 2709 Sep, Paranoid schizophrenia F20.0 [facility] [id number] [place] [address] 51124- 1390 Sep, Paranoid schizophrenia F20.0 and BMI 45.0-49.9, adult Z68.42 [facility] [id number] [place] [address] 55793- 5690 Sep, Schizoaffective disorder, depressive type F25.1 [facility] [id number] [place] [address] 35890- 5862 Sep, [facility] [id number] [place] [address] 21180- 4632 Sep, Paranoid schizophrenia F20.0 [facility] [id number] [place] [address] 85150- 3472 Sep, [facility] [id number] [place] [address] 59767- 0393 Sep, Hypothyroidism (acquired) E03.9 [facility] [id number] [place] [address] 93932- 2187 Sep, [facility] [id number] [place] [address] 96977- 0006 August, Schizoaffective disorder, depressive type F25.1 [facility] [id number] [place] [address] 45468- 6928 August, [facility] [address] 57063- 0707 August, [facility] [id number] [place] [address] 10879- 0254 August, [facility] [address] 05301- 2181 August, Paranoid schizophrenia F20.0 [facility] [id number] [place] [address] 03250- 2746 August, History of lupus Z87.39 and Chronic pain syndrome G89.4 [place] [address] 09266- 6167 August, [facility] [address] 50576 -7071 August, Seasonal allergic rhinitis, unspecified trigger J30.2 and BMI 45.0-49.9, adult Z68.42 [place] [address] 90980- 4306 Jul, Schizoaffective disorder, depressive type F25.1 [place] [id number] [place] [address] 47893- 8156 Jul, [place] [address] 97635- 2066 Jul, Hypothyroidism (acquired) E03.9 [place] [id number] [place] [address] 02745- 7507 Jul, Chronic obstructive pulmonary disease, unspecified COPD type J44.9 and Type 2 diabetes mellitus without complication, without long-term current use of insulin E11.9 [place] [id number] [place] [address] 51498- 3207 Jul, Paranoid schizophrenia F20.0 [place] [address] 50391- 3211 Jun, Hypothyroidism (acquired) E03.9 and Seasonal allergic rhinitis due to pollen J30.1 [facility] [address] 06263 -2326 Jun, Shortness of breath at rest R06.02 ; COPD exacerbation J44.1 and BMI 45.0-49.9, adult Z68.42 [facility] [address] 05846- 9073 Jun, [facility] [address] 15442- 5991 Jun, Paranoid schizophrenia F20.0 ; Depression with anxiety F41.8 and BMI 45.0-49.9, adult Z68.42 [facility] [address] 52481- 9577 20 Jun, 2017 Schizoaffective disorder, depressive type F25.1 [facility] [address] [id number] Jun, Dental caries K02.9 [facility] [address] 39036- 4003 Jun, Paranoid schizophrenia F20.0 [facility] [address] 88677- 4588 May, Migraine without aura and without status migrainosus, not intractable G43.009 ; DM neuro manif type II E11.49 and Type 2 diabetes mellitus without complication, without long-term current use of insulin E11.9 [facility] [address] 53244- 7961 May, Migraine without aura and without status migrainosus, not intractable G43.009 [facility] [address] 50577- 4023 May, Depression with anxiety F41.8 [facility] [address] [id number] May, [facility] [address] [address] 2527 May, [place] [id number] [place] [address] 02851- 9223 May, [facility] [id number] [place] [address] 25902- 4210 May, Hypothyroidism (acquired) E03.9 [place] [id number] [place] [address] 68360- 5973 May, Paranoid schizophrenia F20.0 [place] [id number] [place] [address] 47898- 8259 May, Type 2 diabetes mellitus without complication, [...] N32.81 and Controlled substance agreement signed Z79.899 [place] [id number] [place] [address] 56479- 1048 May, Controlled substance agreement signed Z79.899 [place] [address] [address]- 8448 Apr, [facility] [id number] [place] [address] [id number] Apr, Dental examination Z01.20 [place] [id number] [place] [address] 67775- 4340 Apr, Paranoid schizophrenia F20.0 [place] [id number] [place] [address] 54365- 6125 Apr, Hypertension, unspecified type I10 [facility] [id number] [place] [address] 62858- 6489 Apr, Paranoid schizophrenia F20.0 [facility] [id number] [place] [address] 06711- 6328 Apr, [facility] [id number] [place] [address] 72533- 3938 Apr, Tobacco abuse Z72.0 [place] [id number] [place] [address] 23610- 5096 Apr, [facility] [id number] [place] [address] 31376- 3880 Mar, [place] [id number] [place] [address] 29763- 3667 Mar, Paranoid schizophrenia F20.0 and BMI 45.0-49.9, adult Z68.42 [place] [id number] [place] [address] 86508- 7209 Mar, Schizoaffective disorder, depressive type F25.1 [place] [id number] [place] [address] 40613- 5021 Mar, [facility] [id number] [place] [address] 08422- 0059 Mar, Hypothyroidism, unspecified type E03.9 [facility] [id number] [place] [address] 84925- 9106 Mar, Schizoaffective disorder, depressive type F25.1 [facility] [id number] [place] [address] 09845 -8216 Feb, Gastroenteritis K52.9 and BMI 45.0-49.9, adult Z68.42 [facility] [id number] [place] [address] 24093- 6181 Feb, [facility] [address] 50596- 2092 Feb, [place] [address] 87228- 7733 Feb, [place] [address] 82824- 1921 Feb, [place] [address] 58826- 6979 Feb, Paranoid schizophrenia F20.[address] 71986- 0082 Feb, Gastroesophageal reflux disease without esophagitis K21.9 ; Other seasonal allergic rhinitis J30.2 ; Other allergic rhinitis J30.89 ; Tobacco abuse Z72.0 and BMI 40.0-44.9, adult Z68.[address] 15622- 0670 Feb, Onychomycosis B35.1 ; Callus of foot L84 and DM neuro manif type II E11.49 [place] [address] 76933- 1922 Jan, Chronic allergic rhinitis J30.9 [place] [address] 93975- 0386 Jan, [place] [address] 64518- 7344 Jan, Schizoaffective disorder, depressive type F25.1 [place] [address] 42666- 6173 Jan, [facility] [address] 12002 -2657 Jan, Sore throat J02.9 and Seasonal allergic rhinitis due to other allergic trigger J30.89 [place] [address] 55238- 9493 Jan, [facility] [id number] [place] [address] 64326- 8162 Jan, [facility] [id number] [place] [address] 78910 -3970 Jan, Chronic allergic rhinitis J30.9 [facility] [id number] [place] [address] 23785- 4749 Dec, Paranoid schizophrenia F20.0 ; Primary insomnia F51.01 and Schizoaffective disorder, depressive type F25.1 [facility] [id number] [place] [address] 88214- 5462 Dec, Chronic pain syndrome G89.4 ; Cervicalgia of occipito- atlanto-axial region M54.2 ; Menopausal syndrome (hot flashes) N95.1 and Encounter for immunization Z23 [facility] [id number] [place] [address] 86322- 6015 14 Dec, 2016 [facility] [id number] [place] [address] 68683- 7977 Dec, [facility] [id number] [place] [address] 53761- 8538 Dec, Paranoid schizophrenia F20.0 [facility] [id number] [place] [address] 89256- 0340 Dec, Schizoaffective disorder, depressive type F25.1 [facility] [id number] [place] [address] 38407- 7160 Nov, Hypothyroidism, unspecified type E03.9 [facility] [id number] [place] [address] 52616 -2676 Nov, Acute seasonal allergic rhinitis due to other allergen J30.89 [facility] [id number] [place] [address] 11674- 0658 Nov, [facility] [id number] [place] [address] 20342- 4947 Nov, Hypothyroidism, unspecified type E03.9 and Other elevated white blood cell (WBC) count D72.828 [place] [address] [place] [address] 69434- 6091 Nov, Schizoaffective disorder, depressive type F25.1 [place] [id number] [place] [address] 94587- 7845 Nov, Paranoid schizophrenia F20.0 [place] [id number] [place] [address] 08490- 9607 Nov, Type 2 diabetes mellitus without complication, without long- term current use of insulin E11.9 ; Morbid obesity due to excess calories E66.01 and Chronic pain syndrome G89.4 [place] [id number] [place] [address] 41843- 9512 Oct, Paranoid schizophrenia F20.0 [place] [id number] [place] [address] 98042- 7350 Oct, [place] [id number] [place] [address] 91219- 2171 Oct, Schizoaffective disorder, depressive type F25.1 [place] [id number] [place] [address] 76992- 8135 Oct, Hypothyroidism, unspecified type E03.9 and Other elevated white blood cell (WBC) count D72.828 [place] [id number] [place] [address] 15012- 4416 Oct, Morbid obesity due to excess calories E66.01 ; Chronic obstructive pulmonary disease, unspecified COPD type J44.9 ; History of lupus Z87.39 ; Hypothyroidism, unspecified type E03.9 ; Gastroesophageal reflux disease without esophagitis K21.9 ; Primary insomnia F51.01 and Chronic pain syndrome G89.4 [place] [id number] [place] [address] 23973- 5794 Sep, [place] [address] [address]- 0174 29 Sep, 2016 [facility] [address], [place] [address]- 2261 Sep, [facility] [address], [place] [address]- 2151 Sep, Paranoid schizophrenia F20.0 [facility] [id number] [place] [address] 53371- 7879 Sep, [facility] [id number] [place] [address] 25939- 9349 Sep, Paranoid schizophrenia F20.0 [facility] [id number] [place] [address] 50010- 9628 Sep, [facility] [id number] [place] [address] 95516- 7550 August, Paranoid schizophrenia F20.0 [facility] [address], [place] [address]- 6788 Jul, [facility] [id number] [place] [address] 13698- 4489 Jul, Type 2 diabetes mellitus without complication, [...] [facility] [id number] [id number] Jul, Dental examination Z01.20 [facility] [id number] [place] [address] 26304- 4471 07 Jul, 2016 Paranoid schizophrenia F20.0 [facility] [address] [address]- 8166 Jun, Paranoid schizophrenia F20.0 and Depression with anxiety F41.8 [place] [id number] [place] [address] 32174- 8292 10 Jun, 2016 Paranoid schizophrenia F20.0 and Depression with anxiety F41.8 [place] [id number] [place] [address] 78344- 2899 09 Jun, 2016 [place] [id number] [place] [address] 23442- 0212 Jun, [facility] [place] [id number] [place] [address] 70315 -7531 Jun, Seasonal allergic rhinitis due to other allergic trigger J30.89 [facility] [place] [id number] [place] [address] 11565 -7723 May, Sore throat J02.9 ; Other viral agents as the cause of diseases classified elsewhere B97.89 and Acute upper respiratory infection, unspecified J06.9 [place] [id number] [place] [address] 34461- 7720 May, Paranoid schizophrenia F20.0 and Depression with anxiety F41.8 [place] [id number] [place] [address] 12822- 7093 Apr, Other seasonal allergic rhinitis J30.2 [place] [id number] [place] [address] 31510- 3780 Apr, Paranoid schizophrenia F20.0 and Depression with anxiety F41.8 [facility] [place] [id number] [place] [address] 73684 -6712 Apr, Bronchitis J40 and Sore throat J02.[address] 36648- 5162 Apr, Type 2 diabetes mellitus without complication, without long- term current use of insulin E11.9 [facility] [place] [id number] [place] [address] 96995 -7377 Apr, Bronchitis J40 [place] [id number] [place] [address] 60859- 9790 Apr, [place] [id number] [place] [address] 05402- 7195 Apr, [place] [id number] [place] [address] 16395- 3486 Mar, Type 2 diabetes mellitus without complication, [...] R60.9 and Other seasonal allergic rhinitis J30.2 [place] [id number] [place] [address] 19083- 3093 Mar, Paranoid schizophrenia F20.0 and Depression with anxiety F41.8 [place] [id number] [place] [address] 30325- 0349 Feb, [place] [id number] [place] [address] 06448- 4557 Feb, [place] [id number] [place] [address] 93627- 0967 Feb, [place] [id number] [place] [address] 71964- 5042 Feb, [place] [id number] [place] [address] 34224- 4630 Feb, Type 2 diabetes mellitus without complication, without long- term current use of insulin E11.9 ; ARIAS on CPAP G47.33 and Preoperative evaluation to rule out surgical contraindication Z01.818 [place] [id number] [place] [address] 51750- 0864 09 Feb, 2016 Paranoid schizophrenia F20.0 and Depression with anxiety F41.8 [place] [id number] [address]- 7394 Jan, [facility] [address] [facility] [id number] [place] [address] 26857- 8101 Jan, Paranoid schizophrenia F20.0 and Depression with anxiety F41.8 [facility] [id number] [place] [address]- 5690 17 Jan, 2016 [facility] [address] [facility] [id number] [place] [address] 28297- 8785 14 Jan, 2016 Muscle strain T14.8 [facility] [address] [facility] [id number] [place] [address] 13466- 2354 10 Jan, 2016 Paranoid schizophrenia F20.0 [facility] [id number] [address]- 8792 Jan, [facility] [id number] [place] [address] 98553- 6651 Jan, Paranoid schizophrenia F20.0 and Depression with anxiety F41.8 [facility] [id number] [address]- 0626 Jan, [facility] [id number] [place] [address] 04440- 1082 Jan, [facility] [id number] [address]- 7516 28 Dec, 2015 [facility] [address] [facility] [id number] [address]- 6819 23 Dec, 2015 Paranoid schizophrenia F20.0 [facility] [address] [facility] [id number] [address]- 0193 16 Dec, 2015 Paranoid schizophrenia F20.0 and Depression with anxiety F41.8 [facility] [address] [facility] [id number] [address]- 4410 Nov, [facility] [id number] [address]- 1155 Nov, Paranoid schizophrenia F20.0 [place] [address] [address]- 8157 Nov, Paranoid schizophrenia F20.0 and Depression with anxiety F41.8 [place] [id number] [place] [address] 71506- 6658 Nov, Type 2 diabetes mellitus without complication, without long- term current use of insulin E11.9 ; Paranoid schizophrenia F20.0 ; Chronic obstructive pulmonary disease, unspecified COPD type J44.9 ; Morbid obesity due to excess calories E66.01 and Parkinsonian tremor G20 [place] [id number] [place] [address] 38044- 5242 Nov, [place] [id number] [place] [address] 67312- 2839 Oct, Paranoid schizophrenia F20.0 [place] [id number] [place] [address] 04355- 4196 Oct, Paranoid schizophrenia F20.0 [place] [id number] [place] [address] 33584- 3417 Oct, Paranoid schizophrenia F20.0 and Depression with anxiety F41.8 [place] [id number] [place] [address] 72488- 3718 Oct, [place] [id number] [place] [address] 18172- 1977 Oct, Paranoid schizophrenia F20.0 and Depression with anxiety F41.8 [place] [id number] [place] [address] 71447- 2154 Oct, Nasal sore J34.89 [place] [id number] [place] [address] 60628- 6751 Oct, Type 2 diabetes mellitus without complication, without long- term current use of insulin E11.9 ; Depression with anxiety F41.8 ; Hypothyroidism, unspecified type E03.9 and History of lupus Z87.39 [facility] [id number] [place] [address] 34662- 0630 Oct, [facility] [address] 05048- 7646 Oct, Type 2 diabetes mellitus without complication, [...] edema R60.9 and History of lupus Z87.39 [facility] [id number] [place] [address] 78580- 6617 Feb, [facility] [address] [address] Jan, [facility] [id number] [place] [address]94- 8565 Jan, [facility] [id number] [place] [address] [id number] Jan, [facility] [id number] [place] [address] [id number]- [phone] Dec, [facility] [id number] [place] [address] 79769- 6832 Nov, [facility] [id number] [place] [address] [id number]- 0656 Nov, [facility] [id number] [place] [address]64- 1006 Oct, [facility] [id number] [place] [address] 5[address]- 0485 Oct, [facility] [address] [place] [address] 17 Oct, 2014 [facility] [address] [facility] [id number] [place] [address]- [address] Sep, Allergic rhinitis 477.9 [facility] [address] [facility] [id number] [place] [address]- [address] 11 Sep, 2014 Rhinitis, allergic 477.9 [facility] [id number] [place] [address], [place] [address]- [address] Sep, Rhinitis, allergic 477.9 [facility] [id number] [place] [address] Sep, [facility] [id number] [address] August, [facility] [id number] [place] [address] August, [facility] [id number] [address] August, [facility] [place] [facility] [id number] [place] [address] Jul, [facility] [id number] [address] Jul, [facility] [place] [facility] [id number] [address] Jul, [facility] [place] [facility] [id number] [address] 16 Jun, 2014 [facility] [place] [facility] [id number] [place] [address] Jun, [facility] [place] [facility] [id number] [address] Jun, [facility] [place] [facility] [id number] [address] Jun, [facility] [place] [facility] [id number] [place] [address] Jun, 2014 [facility] [place] [facility] [address] [id number] [place] [address] Jun, 2014 [facility] [place] [facility] [address] [id number] [place] [address] Jun, 2014 [facility] [place] [facility] [address] [id number] [place] [address] 1981 Jun, 2014 [facility] [place] [facility] [address] [id number] [place] [address] May, 2014 [facility] [place] [facility] [address] [id number] [place] [address] May, 2014 [facility] [place] [facility] [address] [id number] [place] [address] May, 2014 [facility] [place] [facility] [address] [id number] [place] [address] 4585 May, 2014 [facility] [place] [facility] [address] [id number] [place] [address] Apr, [facility] [place] [facility] [address] [id number] [place] [address] Mar, [facility] [place] [facility] [address] [id number] [place] [address]47 Mar, [facility] [place] [facility] [address] [id number] [place] [address] 7918 Mar, [facility] [place] [facility] [address] [id number] [place] [address]- 3808 Mar, [facility] [place] [facility] [address] [id number] [place] [address] Mar, [facility] [place] [facility] [address] [id number] [place] [address] Mar, [facility] [place] [facility] [address] [id number] [place] [address] Mar, [facility] [place] [facility] [address] [id number] [place] [address]- [address] Mar, [facility] [place] [facility] [address] [id number] [place] [address] Mar, [facility] [place] [facility] [address] [id number] [place] [address]- 3316 Feb, [facility] [place] [facility] [address] [id number] [place] [address]- [address] Feb, [facility] [place] [facility] [address] [id number] [place] [address]- [address] Feb, [facility] [place] [facility] [address] [id number] [place] [address]- [address] Feb, [facility] [place] [facility] [address] [id number] [place] [address]- [address]164 Feb, [facility] [place] [facility] [address] [id number] [place] [address]- 3789 Feb, [facility] [place] [facility] [address] [id number] [place] [address]- 4411 Feb, [facility] [place] [facility] [address] [id number] [place] [address]- [address]35 Feb, [facility] [place] [facility] [address] [id number] [place] [address]- 67[address] Jan, [facility] [place] [facility] [address] [id number] [place] [address]- 9831 Jan, [facility] [place] [facility] [address] [id number] [place] [address]- [address]22 Jan, [facility] [place] [facility] [address] [id number] [place] [address]- 5273 16 Jan, 2014 [facility] [place] [facility] [address] [id number] [place] [address] 15 Jan, 2014 [facility] [place] [facility] [address] [id number] [place] [address]- 6471 15 Jan, 2014 [facility] [place] [facility] [address] [id number] [place] [address]- 7262 14 Jan, 2014 [facility] [place] [facility] [address] [id number] [place] [address] 14 Jan, 2014 [facility] [place] [facility] [address] [id number] [place] [address]- [address]21 14 Jan, 2014 [facility] [place] [facility] [address] [id number] [place] [address]- 1429 14 Jan, 2014 [facility] [place] [facility] [address] [id number] [place] [address]- 1729 18 Dec, 2013 [facility] [place] [facility] [address] [id number] [place] [address]- 8883 18 Dec, 2013 [facility] [place] [facility] [address] [id number] [place] [address]- 2736 10 Dec, 2013 [facility] [place] [facility] [address] [id number] [place] [address]- 3599 10 Dec, 2013 [facility] [place] [facility] [address] [id number] [place] [address]- 9501 Nov, [facility] [place] [facility] [address] [id number] [place] [address]- 6790 Nov, [facility] [place] [facility] [address] [id number] [place] [address]- 7774 Nov, [facility] [place] [facility] [address] [id number] [place] [address]- 1689 Nov, [facility] [place] [facility] [address] [id number] [place] [address]- 8704 Nov, [facility] [place] [facility] [address] [id number] [place] [address]- 8035 Oct, [facility] [place] [facility] [address] [id number] [place] [address]- 9378 Oct, [facility] [place] [facility] [address] [id number] [place] [address]- [address]200 Oct, [facility] [place] [facility] [address] [id number] [place] [address]- 2887 Oct, [facility] [place] [facility] [address] [id number] [place] [address]- 4121 Sep, [facility] [place] [facility] [address] [id number] [place] [address]- 8483 Sep, [facility] [place] [facility] [address] [id number] [place] [address]- 9191 Sep, [facility] [place] [facility] [address] [id number] [place] [address]- 1017 Sep, [facility] [place] [facility] [address] [id number] [place] [address]- 9821 Sep, [facility] [place] [facility] [address] [id number] [place] [address]- 5460 Sep, [facility] [place] [facility] [address] [id number] [place] [address] 9057 Sep, [facility] [place] [facility] [address] [id number] [place] [address]- 2282 Sep, [facility] [place] [facility] [address] [id number] [place] [address]- 7084 August, [facility] [place] [facility] [address] [id number] [place] [address]- 1481 August, [facility] [place] [facility] [address] [id number] [place] [address]- 2472 August, [facility] [place] [facility] [address] [id number] [place] [address]- 8259 August, [facility] [place] [facility] [address] [id number] [place] [address]- 6081 August, [facility] [place] [facility] [address] [id number] [place] [address]- 5153 August, [facility] [place] [facility] [address] [id number] [place] [address]- 6228 August, [facility] [place] [facility] [address] [id number] [place] [address]- 4094 Jul, [facility] [place] [facility] [address] [id number] [place] [address]- 5702 Jul, [facility] [place] [facility] [address] [id number] [place] [address]- 7874 Jul, [facility] [place] [facility] [address] [id number] [place] [address]- 3107 Jul, [facility] [place] [facility] [address] [id number] [place] [address]- 4244 Jul, [facility] [place] [facility] [address] [id number] [place] [address]- 6126 Jul, [facility] [place] [facility] [address] [id number] [place] [address]- 1437 Jul, [facility] [place] [facility] [address] [id number] [place] [address]- 8602 Jul, [facility] [place] [facility] [address] [id number] [place] [address]- 3099 Jul, [facility] [place] [facility] [address] [id number] [place] [address]- 3938 Jul, [facility] [place] [facility] [address] [id number] [place] [address]- 9191 Jul, [facility] [place] [facility] [address] [id number] [place] [address]- 2420 Jul, [facility] [place] [facility] [address] [id number] [place] [address] Jun, [facility] [place] [facility] [address] [id number] [place] [address] Jun, [facility] [place] [facility] [address] [id number] [place] [address]- 8250 Jun, [facility] [place] [facility] [address] [id number] [place] [address]- 4205 Jun, [facility] [place] [facility] [address] [id number] [place] [address]- 8308 Jun, [facility] [place] [facility] [address] [id number] [place] [address]- 2525 May, [facility] [place] [facility] [address] [id number] [place] [address]- 0778 May, [facility] [place] [facility] [address] [id number] [place] [address]- 4773 May, [facility] [place] [facility] [address] [id number] [place] [address]- 6922 May, [facility] [place] [facility] [address] [id number] [place] [address]- 0559 May, [facility] [place] [facility] [address] [id number] [place] [address]- 4116 May, [facility] [place] [facility] [address] [id number] [place] [address]- 0075 May, [facility] [place] [facility] [address] [id number] [place] [address]- 4585 May, [facility] [place] [facility] [address] [id number] [place] [address]- 7917 Mar, [facility] [place] [facility] [address] [id number] [place] [address]- 1840 Mar, [facility] [place] [facility] [address] [id number] [place] [address] Mar, [facility] [place] [facility] [address] [id number] [place] [address] Mar, [facility] [place] [facility] [address] [id number] [place] [address]- 0135 Mar, [facility] [place] [facility] [address] [id number] [place] [address]- 9730 Mar, [facility] [place] [facility] [address] [id number] [place] [address]- 7106 Feb, [facility] [place] [facility] [address] [id number] [place] [address]- 0980 Feb, [facility] [place] [facility] [address] [id number] [place] [address]- 7582 Jan, [facility] [place] [facility] [address] [id number] [place] [address]- 0078 Jan, [facility] [place] [facility] [address] [id number] [place] [address]- 4831 Jan, [facility] [place] [facility] [address] [id number] [place] [address]- 4783 Jan, [facility] [place] [facility] [address] [id number] [place] [address]- 8954 Jan, [facility] [place] [facility] [address] [id number] [place] [address]- 0209 Jan, [facility] [place] [facility] [address] [id number], [place] [address]- 9293 Jan, [facility] [place] [facility] [address] [id number], [place] [address]- 6365 Jan, [facility] [place] [facility] [address] [id number], [place] [address]- 6[address] 08 Jan, 2013 [facility] [place] [facility] [address] [id number] [place] [address]- 1531 Jan, [facility] [place] [facility] [address] [id number], [place] [address]- 7266 16 Dec, 2012 [facility] [place] [facility] [address] [id number] [place] [address]- 3701 Nov, [facility] [place] [facility] [address] [id number], [place] [address]- 9266 Nov, [facility] [id number] [address]- 9149 Nov, [facility] [id number], [place] [address]- 2897 Oct, [facility] [id number], [place] [address]- 6006 Oct, [facility] [id number], [place] [address]- 7612 August, [facility] [id number], [place] [address]- 9523 Apr, [facility] [id number], [place] [address]- 9666 Apr, [facility] [id number], [place] [address]- 5037 Feb, [facility] [id number], [place] [address]- 6732 Feb, [facility] [id number] [address] Dec, [facility] [id number], [place] [address]- 9297 Dec, [facility] [id number], [place] [address]- 0069 Oct, [facility] [id number] [id number] [address]80 Oct, [facility] [id number], [place] [address]- 3636 Oct, [facility] [id number], [place] [address]- 0059 Jul, IMMUNIZATIONS No Known Immunizations SOCIAL HISTORY Never Assessed REASON FOR VISIT Medication question PLAN OF CARE VITAL SIGNS MEDICATIONS Medication Instructions Dosage Frequency Start Date End Date Duration Status Levothyroxine Sodium 150 MCG Orally Once a [...]
--- OUTSIDE RECORDS SUMMARY | 2018-09-02 14:11 | XMS REPORT ---
Author Author EDWIN UMESH Organization [facility] Address [address] [place] [address] Care Team Providers Care Sound Cutter Name Role Phone UMESH PINEDA Unavailable PROBLEMS Type Condition ICD9-CM Code PAG37-ZQ Code Onset Dates Condition Status SNOMED Code Problem Other seasonal allergic rhinitis J30.2 Active 527378628 Problem Gastroesophageal reflux disease, esophagitis presence not specified K21.9 Active 020614116 Problem Tobacco abuse Z72.0 Active 594565505 Problem Seasonal allergic rhinitis due to pollen J30.1 Active 34776557 Problem History of lupus Z87.39 Active 530278439 Problem COPD exacerbation J44.1 Active 250290571 Problem OAB (overactive bladder) N32.81 Active 838003721 Problem Morbid obesity due to excess calories E66.01 Active 208351504 Problem Dyslipidemia E78.5 Active 425294745 Problem Migraine without aura and without status migrainosus, not intractable G43.009 Active 224488201 Problem Hypothyroidism (acquired) E03.9 Active 408348396 Problem Essential hypertension I10 Active 24188554 Problem Type 2 diabetes mellitus without complication, without long-term current use of insulin E11.9 Active 115247383 Problem Gastroesophageal reflux disease without esophagitis K21.9 Active 815536993 Problem Chronic pain syndrome G89.4 Active 539434089 Problem Paranoid schizophrenia F20.0 Active 89317121 Problem Primary insomnia F51.01 Active 7493460 Problem DM neuro manif type II E11.49 Active 55786709 Problem Depression with anxiety F41.8 Active 371816607 Problem Seasonal allergic rhinitis due to other allergic trigger J30.89 Active 028943127 Problem Menopausal syndrome (hot flashes) N95.1 Active 286558440 Problem Chronic obstructive pulmonary disease, unspecified COPD type J44.9 Active 05099954 Problem Schizoaffective disorder, depressive type F25.1 Active 59328791 Problem Other allergic rhinitis J30.89 Active 529427200 ALLERGIES No Information ENCOUNTERS Encounter Location Date Diagnosis [facility], [place] [id number] [address] Nov, [facility], [place] [id number] [place] [address] 44055- 4497 Oct, [facility], [place] [id number] [place] [address] 64333- 0622 Oct, [facility], [place] [id number] [place] [address] 02535- 5753 Oct, [facility], [place] [id number] [place] [address] 66883- 3948 Sep, Paranoid schizophrenia F20.0 [facility], [place] [id number] [place] [address] 53877- 8796 Sep, Paranoid schizophrenia F20.0 and BMI 45.0-49.9, adult Z68.42 [facility], [place] [id number] [place] [address] 09103- 2901 Sep, Schizoaffective disorder, depressive type F25.1 [facility], [place] [id number] [place] [address] 46185- 1133 Sep, [facility], [place] [id number] [place] [address] 73522- 3850 Sep, Paranoid schizophrenia F20.0 [facility], [place] [id number] [place] [address] 11515- 3938 Sep, [facility], [place] [id number] [place] [address] 82534- 0260 Sep, Hypothyroidism (acquired) E03.9 [facility], [place] [id number] [place] [address] 16650- 2505 Sep, [facility], [place] [id number] [place] [address] 40942- 1661 August, Schizoaffective disorder, depressive type F25.1 [facility], [place] [id number] [place] [address] 12559- 1904 August, [facility], [place] [address] 19705- 4666 August, [facility], [place] [id number] [place] [address] 43061- 8457 August, [facility], [place] [address] 84683- 7822 August, Paranoid schizophrenia F20.0 [facility], [place] [id number] [place] [address] 91801- 1446 August, History of lupus Z87.39 and Chronic pain syndrome G89.4 [place] [address] 27960- 2771 August, [facility] [address] 47441 -5148 August, Seasonal allergic rhinitis, unspecified trigger J30.2 and BMI 45.0-49.9, adult Z68.42 [place] [address] 96468- 2931 Jul, Schizoaffective disorder, depressive type F25.1 [place] [id number] [place] [address] 24844- 8546 Jul, [place] [address] 64792- 5597 Jul, Hypothyroidism (acquired) E03.9 [place] [id number] [place] [address] 71691- 6644 Jul, Chronic obstructive pulmonary disease, unspecified COPD type J44.9 and Type 2 diabetes mellitus without complication, without long-term current use of insulin E11.9 [place] [id number] [place] [address] 15297- 1672 Jul, Paranoid schizophrenia F20.0 [place] [address] 74648- 8472 Jun, Hypothyroidism (acquired) E03.9 and Seasonal allergic rhinitis due to pollen J30.1 [facility] [address] 05479 -7148 Jun, Shortness of breath at rest R06.02 ; COPD exacerbation J44.1 and BMI 45.0-49.9, adult Z68.42 [facility], [place] [address] 32597- 5713 Jun, [facility], [place] [address] 17186- 4175 Jun, Paranoid schizophrenia F20.0 ; Depression with anxiety F41.8 and BMI 45.0-49.9, adult Z68.42 [facility], [place] [address] 53630- 5389 20 Jun, 2017 Schizoaffective disorder, depressive type F25.1 [facility] [address] [id number] Jun, Dental caries K02.9 [facility], [place] [address] 93003- 6770 Jun, Paranoid schizophrenia F20.0 [facility], [place] [address] 63363- 4883 May, Migraine without aura and without status migrainosus, not intractable G43.009 ; DM neuro manif type II E11.49 and Type 2 diabetes mellitus without complication, without long-term current use of insulin E11.9 [facility], [place] [address] 62330- 8737 May, Migraine without aura and without status migrainosus, not intractable G43.009 [facility], [place] [address] 02080- 3921 May, Depression with anxiety F41.8 [facility] [address] [id number] May, [facility], [place] [address] [address] 7162 May, [place] [id number] [place] [address] 67619- 6406 May, [facility], [place] [id number] [place] [address] 85270- 6838 May, Hypothyroidism (acquired) E03.9 [place] [id number] [place] [address] 01622- 1740 May, Paranoid schizophrenia F20.0 [place] [id number] [place] [address] 01475- 5022 May, Type 2 diabetes mellitus without complication, [...] N32.81 and Controlled substance agreement signed Z79.899 [place] [id number] [place] [address] 83258- 8248 May, Controlled substance agreement signed Z79.899 [place] [address], [place] [address] 5471 Apr, [facility] [id number] [place] [address] [id number] Apr, Dental examination Z01.20 [place] [id number] [place] [address] 35197- 3314 Apr, Paranoid schizophrenia F20.0 [place] [id number] [place] [address] 54268- 5197 Apr, Hypertension, unspecified type I10 [facility], [place] [id number] [place] [address] 45730- 3799 Apr, Paranoid schizophrenia F20.0 [facility], [place] [id number] [place] [address] 12114- 1391 Apr, [facility], [place] [id number] [place] [address] 63767- 6323 Apr, Tobacco abuse Z72.0 [place] [id number] [place] [address] 17144- 5057 Apr, [facility], [place] [id number] [place] [address] 39338- 8646 Mar, [place] [id number] [place] [address] 82132- 4251 Mar, Paranoid schizophrenia F20.0 and BMI 45.0-49.9, adult Z68.42 [place] [id number] [place] [address] 55694- 4379 Mar, Schizoaffective disorder, depressive type F25.1 [place] [id number] [place] [address] 45971- 4362 Mar, [facility], [place] [id number] [place] [address] 66100- 2040 Mar, Hypothyroidism, unspecified type E03.9 [facility], [place] [id number] [place] [address] 70052- 9009 Mar, Schizoaffective disorder, depressive type F25.1 [facility] [id number] [place] [address] 86726 -7251 Feb, Gastroenteritis K52.9 and BMI 45.0-49.9, adult Z68.42 [facility], [place] [id number] [place] [address] 42471- 9973 Feb, [facility], [place] [address] 48948- 7612 Feb, [place] [address] 72332- 8127 Feb, [place] [address] 23543- 2732 Feb, [place] [address] 97903- 9870 Feb, Paranoid schizophrenia F20.[address] 82992- 0168 Feb, Gastroesophageal reflux disease without esophagitis K21.9 ; Other seasonal allergic rhinitis J30.2 ; Other allergic rhinitis J30.89 ; Tobacco abuse Z72.0 and BMI 40.0-44.9, adult Z68.[address] 85538- 9607 Feb, Onychomycosis B35.1 ; Callus of foot L84 and DM neuro manif type II E11.49 [place] [address] 52168- 7146 Jan, Chronic allergic rhinitis J30.9 [place] [address] 09349- 1838 Jan, [place] [address] 72586- 7081 Jan, Schizoaffective disorder, depressive type F25.1 [place] [address] 20286- 0909 Jan, [facility] [address] 85509 -9593 Jan, Sore throat J02.9 and Seasonal allergic rhinitis due to other allergic trigger J30.89 [place] [address] 13759- 6595 Jan, [facility], [place] [id number] [place] [address] 79349- 8809 Jan, [facility] [id number] [place] [address] 94363 -4994 Jan, Chronic allergic rhinitis J30.9 [facility], [place] [id number] [place] [address] 57121- 8278 Dec, Paranoid schizophrenia F20.0 ; Primary insomnia F51.01 and Schizoaffective disorder, depressive type F25.1 [facility], [place] [id number] [place] [address] 36190- 2081 Dec, Chronic pain syndrome G89.4 ; Cervicalgia of occipito- atlanto-axial region M54.2 ; Menopausal syndrome (hot flashes) N95.1 and Encounter for immunization Z23 [facility], [place] [id number] [place] [address] 13008- 4576 14 Dec, 2016 [facility], [place] [id number] [place] [address] 95436- 1014 Dec, [facility], [place] [id number] [place] [address] 54657- 4691 Dec, Paranoid schizophrenia F20.0 [facility], [place] [id number] [place] [address] 41855- 5911 Dec, Schizoaffective disorder, depressive type F25.1 [facility], [place] [id number] [place] [address] 73972- 4020 Nov, Hypothyroidism, unspecified type E03.9 [facility] [id number] [place] [address] 36079 -9939 Nov, Acute seasonal allergic rhinitis due to other allergen J30.89 [facility], [place] [id number] [place] [address] 13041- 0086 Nov, [facility], [place] [id number] [place] [address] 09859- 5393 Nov, Hypothyroidism, unspecified type E03.9 and Other elevated white blood cell (WBC) count D72.828 [place] [id number] [place] [address] 99866- 0094 Nov, Schizoaffective disorder, depressive type F25.1 [place] [id number] [place] [address] 77357- 9000 Nov, Paranoid schizophrenia F20.0 [place] [id number] [place] [address] 30559- 0435 Nov, Type 2 diabetes mellitus without complication, without long- term current use of insulin E11.9 ; Morbid obesity due to excess calories E66.01 and Chronic pain syndrome G89.4 [place] [id number] [place] [address] 45228- 3808 Oct, Paranoid schizophrenia F20.0 [place] [id number] [place] [address] 99271- 3487 Oct, [place] [id number] [place] [address] 18665- 1267 Oct, Schizoaffective disorder, depressive type F25.1 [place] [id number] [place] [address] 53961- 1611 Oct, Hypothyroidism, unspecified type E03.9 and Other elevated white blood cell (WBC) count D72.828 [place] [id number] [place] [address] 37568- 7720 Oct, Morbid obesity due to excess calories E66.01 ; Chronic obstructive pulmonary disease, unspecified COPD type J44.9 ; History of lupus Z87.39 ; Hypothyroidism, unspecified type E03.9 ; Gastroesophageal reflux disease without esophagitis K21.9 ; Primary insomnia F51.01 and Chronic pain syndrome G89.4 [place] [id number] [place] [address] 79842- 4555 Sep, [place] [address], [place] [address]- 7068 29 Sep, 2016 [facility], [place] [address], [place] [address]- 7478 Sep, [facility], [place] [address], [place] [address]- 3452 Sep, Paranoid schizophrenia F20.0 [facility], [place] [id number] [place] [address] 41895- 4962 Sep, [facility], [place] [id number] [place] [address] 09926- 7344 Sep, Paranoid schizophrenia F20.0 [facility], [place] [id number] [place] [address] 30696- 1468 Sep, [facility], [place] [id number] [place] [address] 47086- 2592 August, Paranoid schizophrenia F20.0 [facility], [place] [address], [place] [address]- 7315 Jul, [facility], [place] [id number] [place] [address] 50884- 9074 Jul, Type 2 diabetes mellitus without complication, without long- term current use of insulin E11.9 ; Morbid obesity due to excess calories E66.01 ; Depression with anxiety F41.8 ; Hypothyroidism, unspecified type E03.9 ; Seasonal allergic rhinitis due to other allergic trigger J30.89 ; Pain, dental K08.89 and Gastroesophageal reflux disease without esophagitis K21.9 [facility] [id number] [id number] Jul, Dental examination Z01.20 [facility], [place] [id number] [place] [address] 34080- 0201 07 Jul, 2016 Paranoid schizophrenia F20.0 [facility], [place] [address], [place] [address]- 2460 Jun, Paranoid schizophrenia F20.0 and Depression with anxiety F41.8 [place] [id number] [place] [address] 74775- 3149 10 Jun, 2016 Paranoid schizophrenia F20.0 and Depression with anxiety F41.8 [place] [id number] [place] [address] 41924- 7864 09 Jun, [address] [place] [id number] [place] [address] 70789- 5623 Jun, [facility] [place] [id number] [place] [address] 79299 -8173 Jun, Seasonal allergic rhinitis due to other allergic trigger J30.89 [facility] [id number] [place] [address] 48424 -5138 May, Sore throat J02.9 ; Other viral agents as the cause of diseases classified elsewhere B97.89 and Acute upper respiratory infection, unspecified J06.9 [id number] [place] [address] 37982- 3004 May, Paranoid schizophrenia F20.0 and Depression with anxiety F41.8 [place] [id number] [place] [address] 37686- 1404 Apr, Other seasonal allergic rhinitis J30.2 [place] [id number] [place] [address] 75182- 9887 Apr, Paranoid schizophrenia F20.0 and Depression with anxiety F41.8 [facility] [id number] [place] [address] 91424 -5884 Apr, Bronchitis J40 and Sore throat J02.[address] 92751- 2959 Apr, Type 2 diabetes mellitus without complication, without long- term current use of insulin E11.9 [facility] [id number] [place] [address] 64142 -0251 Apr, Bronchitis J40 [id number] [place] [address] 07531- 2141 Apr, [place] [id number] [place] [address] 75331- 4968 Apr, [place] [id number] [place] [address] 88993- 3925 Mar, Type 2 diabetes mellitus without complication, [...] R60.9 and Other seasonal allergic rhinitis J30.2 [place] [id number] [place] [address] 46137- 6200 Mar, Paranoid schizophrenia F20.0 and Depression with anxiety F41.8 [place] [id number] [place] [address] 97664- 0862 Feb, [place] [id number] [place] [address] 88148- 8403 Feb, [place] [id number] [place] [address] 54688- 2776 Feb, [place] [id number] [place] [address] 61413- 3167 Feb, [place] [id number] [place] [address] 72412- 7804 Feb, Type 2 diabetes mellitus without complication, without long- term current use of insulin E11.9 ; ARIAS on CPAP G47.33 and Preoperative evaluation to rule out surgical contraindication Z01.818 [place] [id number] [place] [address] 87730- 5921 09 Feb, 2016 Paranoid schizophrenia F20.0 and Depression with anxiety F41.8 [place] [id number] [address]- 7183 Jan, [facility] [place] [address] [facility] [id number] [place] [address] 69612- 4629 Jan, Paranoid schizophrenia F20.0 and Depression with anxiety F41.8 [facility], [place] [id number] [place] [address]- 8988 17 Jan, 2016 [facility], [place] [address] [facility] [id number] [place] [address] 59393- 5959 14 Jan, 2016 Muscle strain T14.8 [facility] [place] [address] [facility] [id number] [place] [address] 02218- 5795 10 Jan, 2016 Paranoid schizophrenia F20.0 [facility], [place] [id number] [address]- 6575 Jan, [facility], [place] [id number] [place] [address] 01925- 1604 Jan, Paranoid schizophrenia F20.0 and Depression with anxiety F41.8 [facility], [place] [id number], [place] [address]- 2172 Jan, [facility], [place] [id number] [place] [address] 94693- 4480 Jan, [facility], [place] [id number], [place] [address]- 3137 28 Dec, 2015 [facility] [place] [address] [facility] [place] [place] [id number] [address]- 1617 23 Dec, 2015 Paranoid schizophrenia F20.0 [facility] [place] [address] [facility] [place] [place] [id number] [address]- 3399 16 Dec, 2015 Paranoid schizophrenia F20.0 and Depression with anxiety F41.8 [facility] [place] [address] [facility] [place] [place] [id number], [place] [address]- 8906 Nov, [facility], [place] [id number] [address]- 6905 Nov, Paranoid schizophrenia F20.0 [place] [address], [place] [address]- 1375 Nov, Paranoid schizophrenia F20.0 and Depression with anxiety F41.8 [place] [id number] [place] [address] 42612- 5936 Nov, Type 2 diabetes mellitus without complication, without long- term current use of insulin E11.9 ; Paranoid schizophrenia F20.0 ; Chronic obstructive pulmonary disease, unspecified COPD type J44.9 ; Morbid obesity due to excess calories E66.01 and Parkinsonian tremor G20 [place] [address] [place] [id number] [place] [address]69- [phone] Nov, [place] [address] [place] [id number] [place] [address] [phone]- 4108 Oct, Paranoid schizophrenia F20.0 [place] [address] [place] [id number] [place] [address] [phone]- 4913 Oct, Paranoid schizophrenia F20.0 [place] [address] [place] [id number] [place] [address] 68726- 5579 Oct, Paranoid schizophrenia F20.0 and Depression with anxiety F41.8 [place] [address] [place] [id number] [place] [address] [phone] 6085 Oct, [place] [address] [place] [id number] [place] [address] [phone]- 2387 Oct, Paranoid schizophrenia F20.0 and Depression with anxiety F41.8 [place] [id number] [place] [address] 67021- 9042 Oct, Nasal sore J34.89 [place] [address] [place] [id number] [place] [address] [phone]- 0623 Oct, Type 2 diabetes mellitus without complication, without long- term current use of insulin E11.9 ; Depression with anxiety F41.8 ; Hypothyroidism, unspecified type E03.9 and History of lupus Z87.39 [facility], [place] [address] [id number] [place] [address] 54309- [phone] Oct, [facility], [place] [address] [address] Oct, Type 2 diabetes mellitus without complication, [...] edema R60.9 and History of lupus Z87.39 [facility], [place] [address] [id number] [place] [address] [phone]- [phone] Feb, [facility], [place] [address] [address] Jan, [facility], [place] [id number] [place] [address]- 7723 Jan, [facility], [place] [id number] [place] [address] [id number] 6480 Jan, [facility], [place] [id number] [place] [address] 219584- 8777 Dec, [facility], [place] [id number] [place] [address] 36367- 3918 Nov, [facility], [place] [id number] [place] [address] 57931- 7922 Nov, [facility], [place] [id number] [place] [address] 29959- 2196 Oct, [facility], [place] [id number] [place] [address] 44283- 7641 Oct, [facility], [place] [address] [place] [address]- 9577 17 Oct, 2014 [facility] [address] [facility] [place] [place] [id number] [place] [address] Sep, Allergic rhinitis 477.9 [facility] [address] [facility] [place] [id number] [place] [address] 9033 11 Sep, 2014 Rhinitis, allergic 477.9 [facility] [id number] [place] [address], [place] [address] 47[address] Sep, Rhinitis, allergic 477.9 [facility] [address] [id number] [place] [address] 0102 Sep, [facility] [address] [address] 3[address] August, [facility] [id number] [place] [address]- 1487 August, [facility] [address], [place] [address] 9679 August, [facility] [place] [facility] [id number] [place] [address]- 0723 Jul, [facility] [address], [place] [address] 4671 Jul, [facility] [place] [facility] [address], [place] [address]- 5765 Jul, [facility] [place] [facility] [address], [place] [address]- 0159 16 Jun, 2014 [facility] [place] [facility] [address] [id number] [place] [address]- 7353 Jun, [facility] [place] [facility] [address] [id number] [address]- 1428 Jun, [facility] [place] [facility] [address] [id number] [address]- 3549 Jun, [facility] [place] [facility] [id number] [place] [address] 1316 Jun, 2014 [facility] [place] [facility] [address] [id number] [place] [address]- 2320 Jun, 2014 [facility] [place] [facility] [address] [id number] [place] 3[address] Jun, 2014 [facility] [place] [facility] [address] [id number] [place] [address]- 2092 Jun, 2014 [facility] [place] [facility] [address] [id number] [place] [address]- 1263 May, 2014 [facility] [place] [facility] [address] [id number] [place] [address]- 0622 May, 2014 [facility] [place] [facility] [address] [id number] [place] [address]- 8484 May, 2014 [facility] [place] [facility] [address] [id number] [place] [address]- 1630 May, 2014 [facility] [place] [facility] [address] [id number] [place] [address]- 4130 Apr, [facility] [place] [facility] [address] [id number] [place] [address]- 3016 Mar, [facility] [place] [facility] [address] [id number] [place] [address]- 8314 Mar, [facility] [place] [facility] [address] [id number] [place] [address]- 9213 Mar, [facility] [place] [facility] [address] [id number] [place] [address]- 2016 Mar, [facility] [place] [facility] [address] [id number] [place] [address] Mar, [facility] [place] [facility] [address] [id number] [place] 2675 Mar, [facility] [place] [facility] [address] [id number] [place] 6208 Mar, [facility] [place] [facility] [address] [id number] [place] [address]- 1649 Mar, [facility] [place] [facility] [address] [id number] [place] 9798 Mar, [facility] [place] [facility] [address] [id number] [place] [address]- 0156 Feb, [facility] [place] [facility] [address] [id number] [place] [address]- 7127 Feb, [facility] [place] [facility] [address] [id number] [place] [address]- 7768 Feb, [facility] [place] [facility] [address] [id number] [place] [address]- 5710 Feb, [facility] [place] [facility] [address] [id number] [place] [address]- 0366 Feb, [facility] [place] [facility] [address] [id number] [place] [address]- 9645 Feb, [facility] [place] [facility] [address] [id number] [place] [address]- 6558 Feb, [facility] [place] [facility] [address] [id number] [place] [address]- 2020 Feb, [facility] [place] [facility] [address] [id number] [place] [address]- 8843 Jan, [facility] [place] [facility] [address] [id number] [place] [address]- 0672 Jan, [facility] [place] [facility] [address] [id number] [place] [address]- 0286 Jan, [facility] [place] [facility] [address] [id number] [place] [address]- 6407 16 Jan, 2014 [facility] [place] [facility] [address] [id number] [place] 7191 15 Jan, 2014 [facility] [place] [facility] [address] [id number] [place] [address]- 5867 15 Jan, 2014 [facility] [place] [facility] [address] [id number] [place] [address]- 3881 14 Jan, 2014 [facility] [place] [facility] [address] [id number] [place] [address]- 9556 14 Jan, 2014 [facility] [place] [facility] [address] [id number] [place] [address]- 6746 14 Jan, 2014 [facility] [place] [facility] [address] [id number] [place] [address]- 2445 14 Jan, 2014 [facility] [place] [facility] [address] [id number] [place] [address]- 0876 18 Dec, 2013 [facility] [place] [facility] [address] [id number] [place] [address]- 9418 18 Dec, 2013 [facility] [place] [facility] [address] [id number] [place] [address]- 9781 10 Dec, 2013 [facility] [place] [facility] [address] [id number] [place] [address]- 3403 10 Dec, 2013 [facility] [place] [facility] [address] [id number] [place] [address]- 1861 Nov, [facility] [place] [facility] [address] [id number] [place] [address]- 9608 Nov, [facility] [place] [facility] [address] [id number] [place] [address]- 4903 Nov, [facility] [place] [facility] [address] [id number] [place] [address]- 3871 Nov, [facility] [place] [facility] [address] [id number] [place] [address]- 4997 Nov, [facility] [place] [facility] [address] [id number] [place] [address]- 3814 Oct, [facility] [place] [facility] [address] [id number] [place] [address]- 7911 Oct, [facility] [place] [facility] [address] [id number] [place] [address]- 8174 Oct, [facility] [place] [facility] [address] [id number] [place] [address]- 7041 Oct, [facility] [place] [facility] [address] [id number] [place] [address]- 4390 Sep, [facility] [place] [facility] [address] [id number] [place] [address]- 8665 Sep, [facility] [place] [facility] [address] [id number] [place] [address]- 3412 Sep, [facility] [place] [facility] [address] [id number] [place] [address]- 7173 Sep, [facility] [place] [facility] [address] [id number] [place] [address]- 1697 Sep, [facility] [place] [facility] [address] [id number] [place] [address]- 6838 Sep, [facility] [place] [facility] [address] [id number] [place] [address]- 9133 Sep, [facility] [place] [facility] [address] [id number] [place] [address]- 8185 Sep, [facility] [place] [facility] [address] [id number] [place] [address]- 9616 August, [facility] [place] [facility] [address] [id number] [place] [address]- 0504 August, [facility] [place] [facility] [address] [id number] [place] [address]- 1544 August, [facility] [place] [facility] [address] [id number] [place] [address]- 0440 August, [facility] [place] [facility] [address] [id number] [place] [address]- 3137 August, [facility] [place] [facility] [address] [id number] [place] [address]- 7189 August, [facility] [place] [facility] [address] [id number] [place] [address]- 9234 August, [facility] [place] [facility] [address] [id number] [place] [address]- 0812 Jul, [facility] [place] [facility] [address] [id number] [place] [address]- 4481 Jul, [facility] [place] [facility] [address] [id number] [place] [address]- 4368 Jul, [facility] [place] [facility] [address] [id number] [place] [address]- 7776 Jul, [facility] [place] [facility] [address] [id number] [place] [address]- 7792 Jul, [facility] [place] [facility] [address] [id number] [place] [address]- 9899 Jul, [facility] [place] [facility] [address] [id number] [place] [address]- 0626 Jul, [facility] [place] [facility] [address] [id number] [place] [address]- 1185 Jul, [facility] [place] [facility] [address] [id number] [place] [address]- 6600 Jul, [facility] [place] [facility] [address] [id number] [place] [address]- 3535 Jul, [facility] [place] [facility] [address] [id number] [place] [address]- 7779 Jul, [facility] [place] [facility] [address] [id number] [place] [address]- 0398 Jul, [facility] [place] [facility] [address] [id number] [place] 1323 Jun, [facility] [place] [facility] [address] [id number] [place] 7415 Jun, [facility] [place] [facility] [address] [id number] [place] [address]- 5248 Jun, [facility] [place] [facility] [address] [id number] [place] [address]- 0307 Jun, [facility] [place] [facility] [address] [id number] [place] [address]- 4327 Jun, [facility] [place] [facility] [address] [id number] [place] [address]- 4995 May, [facility] [place] [facility] [address] [id number] [place] [address]- 6744 May, [facility] [place] [facility] [address] [id number] [place] [address]- 7509 May, [facility] [place] [facility] [address] [id number] [place] [address]- 7712 May, [facility] [place] [facility] [address] [id number] [place] [address]- 9281 May, [facility] [place] [facility] [address] [id number] [place] [address]- 5180 May, [facility] [place] [facility] [address] [id number] [place] [address]- 8304 May, [facility] [place] [facility] [address] [id number] [place] [address]- 4261 May, [facility] [place] [facility] [address] [id number] [place] [address]- 0572 Mar, [facility] [place] [facility] [address] [id number] [place] [address]- 8214 Mar, [facility] [place] [facility] [address] [id number] [place] 8810 Mar, [facility] [place] [facility] [address] [id number] [place] 3514 Mar, [facility] [place] [facility] [address] [id number] [place] [address]- 6889 Mar, [facility] [place] [facility] [address] [id number] [place] [address]- 2278 Mar, [facility] [place] [facility] [address] [id number] [place] [address]- 6234 Feb, [facility] [place] [facility] [address] [id number] [place] [address]- 7835 Feb, [facility] [place] [facility] [address] [id number] [place] [address]- 6874 Jan, [facility] [place] [facility] [address] [id number] [place] [address]- 2904 Jan, [facility] [place] [facility] [address] [id number] [place] [address]- 6114 Jan, [facility] [place] [facility] [address] [id number] [place] [address]- 6976 Jan, [facility] [place] [facility] [address] [id number] [place] [address]- 8403 Jan, [facility] [place] [facility] [address] [id number] [place] [address]- 3661 Jan, [facility] [place] [facility] [address] [id number], [place] [address]- 8208 Jan, [facility] [place] [facility] [address] [id number], [place] [address]- 1832 Jan, [facility] [place] [facility] [address] [id number], [place] [address]- 3713 08 Jan, 2013 [facility] [place] [facility] [address] [id number] [place] [address]- 8519 Jan, [facility] [place] [facility] [address] [id number], [place] [address]- 8196 16 Dec, 2012 [facility] [place] [facility] [address] [id number] [place] [address]- 8253 Nov, [facility] [place] [facility] [address] [id number], [place] [address] 2546 Nov, [facility] [place] [address] [id number] [address]- 6086 Nov, [facility] [place] [address] [id number] [address]- 5956 Oct, [facility] [place] [address], [place] [address] 2546 Oct, [facility] [place] [address], [place] [address]- 6346 August, [facility] [place] [address], [place] [address]- 0143 Apr, [facility] [place] [address], [place] [address]- 8466 Apr, [facility] [place] [address], [place] [address]- 7058 Feb, [facility] [place] [address] [address]- 5387 Feb, [facility] [place] [address], [place] [address]- 7200 Dec, [facility] [place] [address] [id number] 4030 Dec, [facility] [place] [address] [id number] [address]- 0407 Oct, [facility] [place] [address] [id number] [address]- 3677 Oct, [facility] [place] [address] [id number], [place] [address]- 2894 Oct, [facility] [place] [address] [id number] [address]- 7305 Jul, IMMUNIZATIONS Vaccine Route Administration Date Status INVEGA (PT'S OWN) IM Intramuscular Jun 03, 2017 Administered SOCIAL HISTORY Never Assessed REASON FOR VISIT Injection- Althea Rae RN PLAN OF CARE Activity Details Follow Up prn Reason: VITAL SIGNS MEDICATIONS Unknown Medications RESULTS No Results PROCEDURES Procedure Date Ordered Result Body Site INVEGA (PT'S OWN) Jun 03, 2017 THER/PROPH/DIAG INJ, SC/IM Jun 03, 2017 INSTRUCTIONS MEDICATIONS ADMINISTERED No Known [...]
--- OUTSIDE RECORDS SUMMARY | 2018-09-02 14:11 | XMS REPORT ---
Author Author SOTO STRICKLAND Organization [employer] Address Unknown Phone Unavailable Care Team Providers Care Online Merchandising Coordinator Name Role Phone SOTO STRICKLAND CP Unavailable Allergies, Adverse Reactions, Alerts Substance [...] Other seasonal allergic rhinitis J30.2 Active Assessment Parkinsonian tremor G20 Active Assessment Morbid obesity due to excess calories E66.01 Active Assessment Type 2 diabetes mellitus without complication, without long-term current use of insulin E11.9 Active Problem History of lupus Z87.39 Active Assessment Chronic obstructive pulmonary disease, unspecified COPD type J44.9 Active Problem Peripheral edema R60.9 Active Assessment Paranoid schizophrenia F20.0 Active Problem Parkinsonian tremor G20 Active Medications Medication Code System Code Instructions Start Date End Date Status Dosage Levothyroxine Sodium [facility] 42342520015 150 MCG TAKE 1 TABLET BY ORAL ROUTE 1 TIME PER DAY Restasis [facility] [address]-40 0.05 % November 15, 2012 instill 1 drop into affected eye(s) by ophthalmic route 2 times per day Breo Ellipta [facility] [address]-06 100-25 mcg/dose Inhalation, must be seen for more refills Once a day July 05, 2014 inhale 1 puff by inhalation route once daily at the same time each day Invega [facility] [address]-70 9 MG Orally Once a day 1 tablet sertraline [facility] 0 100 mg Once a day November 15, 2012 take 1 tablet ( 100 mg) by oral route once daily Nexium [facility] [address]-05 40 MG Orally Once a day 1 capsule Invega Sustenna [facility] [address]-56 234 MG/1.5ML Intramuscular once November 13, 2015 1.5 ml trazodone [facility] [address]-00 150 mg July 05, 2013 1 Daily by Oral route 1 time per day Take at HS for sleep Mupirocin [facility] [address]-74 2 % Externally Three times a day Apr 20, 2014 1 Application by Nasal route 2 times per day to each nare--disp 22 gram tube Gabapentin [facility] [address]-69 600 MG Orally Three times a day 1 tablet metformin [facility] [address]-28 1,000 mg orally 2 times a day July 05, 2014 1 tablet Myrbetriq [facility] [address]-86 50 MG Orally Once a day 1 tablet Pravastatin Sodium [facility] [address]-90 10 MG Orally Once a day September 21, 2014 1 tablet ProAir HFA [facility] [address]-53 90 mcg/actuation Inhalation every 4 hrs Nov 2 puffs as needed Tizanidine HCl [facility] [address]-86 4 MG Orally 3 times a day 1 1/2 tablets Claritin [facility] [address]-85 10 MG Orally Once a day 1 tablet Premarin [facility] 64635803872 0.625 MG/GM insert 0.5 gram by vaginal route twice weekly Norvasc [facility] [address]-82 10 MG Orally Once a day 1 tablet Spironolactone [facility] [address]-43 50 mg Orally Once a day 1 tablet Invega [facility] [address]-37 3 MG Orally Once a day 1 tablet Invega Sustenna [facility] [address]-11 156 MG/ML Intramuscular once on OctoberNovember 13, 2015 1 drop Triamcinolone Acetonide [facility] 72220819057 0.5 % APPLY TOPICALLY TWICE DAILY Procedures Procedure Coding System Code Date Office Visit, Est Pt., Level 3 CPT-4 03463 Nov 29, 2015 [facility] VISIT ESTABLISHED PATIENT CPT-4 G0467 Nov 29, 2015 Vital Signs Date/Time: Nov 29, 2015 Cardiac Monitoring Heart Rate 80 bpm Weight 212.0 lbs Height 57 in BMI 45.87 Index Blood Pressure Diastolic 68 mmHg Blood Pressure Systolic 120 mmHg Results No Known Results Summary Purpose [employer] Submission
--- OUTSIDE RECORDS SUMMARY | 2018-09-02 14:11 | XMS REPORT ---
Author DAVID Maya Organization [employer] Address Unknown Phone Unavailable Care Team Providers Care Holistic Nutritionist Name Role Phone DAVID KO CP Unavailable Allergies No Known Allergies Problems [...] Medications Procedures Procedure Coding System Code Date Psychotherapy, patient &/family, 30 minutes, established patient CPT-4 72271 November 06, 2015 [facility] VISIT MENTAL HEALTH ESTAB PT CPT-4 G0470 November 06, 2015 Results No Known Results Summary Purpose [employer] Submission
--- OUTSIDE RECORDS SUMMARY | 2018-09-02 14:12 | XMS REPORT ---
Author Author STRICKLANDSOTO Carias Organization [facility] Address [address] [place] [address] Care Team Providers Care Channel Supervisor Name Role Phone STRICKLANDSOTO Carias Unavailable PROBLEMS Type Condition ICD9-CM Code JPH48-XG Code Onset Dates Condition Status SNOMED Code Problem Other seasonal allergic rhinitis J30.2 Active 948456221 Problem Gastroesophageal reflux disease, esophagitis presence not specified K21.9 Active 913372211 Problem Tobacco abuse Z72.0 Active 871983428 Problem Seasonal allergic rhinitis due to pollen J30.1 Active 95765376 Problem History of lupus Z87.39 Active 828481380 Problem COPD exacerbation J44.1 Active 069858236 Problem OAB (overactive bladder) N32.81 Active 122371556 Problem Morbid obesity due to excess calories E66.01 Active 026115840 Problem Dyslipidemia E78.5 Active 011889108 Problem Migraine without aura and without status migrainosus, not intractable G43.009 Active 823617257 Problem Hypothyroidism (acquired) E03.9 Active 970599707 Problem Essential hypertension I10 Active 88590851 Problem Type 2 diabetes mellitus without complication, without long-term current use of insulin E11.9 Active 080829996 Problem Gastroesophageal reflux disease without esophagitis K21.9 Active 461011722 Problem Chronic pain syndrome G89.4 Active 921651879 Problem Paranoid schizophrenia F20.0 Active 14238155 Problem Primary insomnia F51.01 Active 1814557 Problem DM neuro manif type II E11.49 Active 06500048 Problem Depression with anxiety F41.8 Active 881235264 Problem Seasonal allergic rhinitis due to other allergic trigger J30.89 Active 207944265 Problem Menopausal syndrome (hot flashes) N95.1 Active 312358273 Problem Chronic obstructive pulmonary disease, unspecified COPD type J44.9 Active 88034178 Problem Schizoaffective disorder, depressive type F25.1 Active 92644132 Problem Other allergic rhinitis J30.89 Active 289873218 ALLERGIES No Information ENCOUNTERS Encounter Location Date Diagnosis [facility] [address] [address] Nov, [facility] [address] [address] Jul, Hypothyroidism (acquired) E03.9 [facility] [address] [address]- [address]63 Jul, Chronic obstructive pulmonary disease, unspecified COPD type J44.9 and Type 2 diabetes mellitus without complication, without long-term current use of insulin E11.9 [place] [address] [address]80 Jul, Paranoid schizophrenia F20.0 [place] [address] [address]45- 9475 29 Jun, 2017 Hypothyroidism (acquired) E03.9 and Seasonal allergic rhinitis due to pollen J30.1 [facility] [address] [address] Jun, Shortness of breath at rest R06.02 ; COPD exacerbation J44.1 and BMI 45.0-49.9, adult Z68.42 [facility] [address] [address]- [address] Jun, [facility] [address] [address]- 3[address] Jun, Paranoid schizophrenia F20.0 ; Depression with anxiety F41.8 and BMI 45.0-49.9, adult Z68.42 [facility] [address] [id number] [place] [address]12- 4740 Jun, Schizoaffective disorder, depressive type F25.1 [facility] [id number] [place] [address] [id number] 13 Jun, 2017 Dental caries K02.9 [facility] [address] [address]- 69[address] Jun, Paranoid schizophrenia F20.0 [facility] [address] [place] [address] May, Migraine without aura and without status migrainosus, not intractable G43.009 ; DM neuro manif type II E11.49 and Type 2 diabetes mellitus without complication, without long-term current use of insulin E11.9 [facility] [id number] [place] [address] May, Migraine without aura and without status migrainosus, not intractable G43.009 [facility] [id number] [place], [place] [address] May, Depression with anxiety F41.8 [facility] [id number] [place] [address] [id number] May, [facility] [address] [address]- 98[address] May, [facility] [id number] [place] [address] 28456- 9069 May, [facility] [address] [place] [id number]- 8567 May, Hypothyroidism (acquired) E03.9 [facility] [id number] [place] [address] 25025- 8020 May, Paranoid schizophrenia F20.0 [facility] [id number] [place] [address] May, Type 2 diabetes mellitus without complication, [...] N32.81 and Controlled substance agreement signed Z79.899 [facility] [id number] [place] [address] 04207- 5777 May, Controlled substance agreement signed Z79.899 [facility] [id number] [place] [address] 51248- 5315 Apr, [facility] [id number] [place] [address] [phone] Apr, Dental examination Z01.20 [place] [address] 94752- 2426 Apr, Paranoid schizophrenia F20.0 [facility] [id number] [place] [address] 94564- 8018 Apr, Hypertension, unspecified type I10 [facility] [id number] [place] [address] 76531- 8985 Apr, Paranoid schizophrenia F20.0 [facility] [address] 9[address]- 1529 Apr, [facility] [id number] [place] [address] 09338- 0630 Apr, Tobacco abuse Z72.0 [facility] [id number] [place] [address] 97409- 8958 Apr, [facility] [id number] [place] [address] 17708- 3299 Mar, [facility] [address] 07[address]- 7784 Mar, Paranoid schizophrenia F20.0 and BMI 45.0-49.9, adult Z68.42 [facility] [id number] [place] [address] 93067- 9695 Mar, Schizoaffective disorder, depressive type F25.1 [place] [id number] [place] [address] 46048- 0446 14 Mar, 2017 [place] [address] 48393- 6734 Mar, Hypothyroidism, unspecified type E03.9 [place] [address] 28555- 5624 Mar, Schizoaffective disorder, depressive type F25.1 [facility] [address] [address] Feb, Gastroenteritis K52.9 and BMI 45.0-49.9, adult Z68.42 [place] [address] 64761- 5578 Feb, [place] [address] 90483- 9263 Feb, [place] [address] 27729- 8034 Feb, [place] [address] 48884- 7419 16 Feb, 2017 [place] [address] 84106- 2881 Feb, Paranoid schizophrenia F20.0 [place] [address] 89873- 2133 06 Feb, 2017 Gastroesophageal reflux disease without esophagitis K21.9 ; Other seasonal allergic rhinitis J30.2 ; Other allergic rhinitis J30.89 ; Tobacco abuse Z72.0 and BMI 40.0-44.9, adult Z68.41 [place] [address] [address]- 2012 03 Feb, 2017 Onychomycosis B35.1 ; Callus of foot L84 and DM neuro manif type II E11.[address] [address]- [address]49 Jan, Chronic allergic rhinitis J30.9 [facility] [id number] [place] [address] 14099- 9106 16 Jan, 2017 [facility] [address] 81784- 3739 Jan, Schizoaffective disorder, depressive type F25.1 [facility] [address] 21241- 5019 10 Jan, 2017 [facility] [address] 72325 [address] 07 Jan, 2017 Sore throat J02.9 and Seasonal allergic rhinitis due to other allergic trigger J30.89 [facility] [address] 38585- 1535 04 Jan, 2017 [facility] [address] 42230- 8583 Jan, [facility] [address] [address]2059 Jan, Chronic allergic rhinitis J30.9 [facility] [address] 49145- 7437 27 Dec, 2016 Paranoid schizophrenia F20.0 ; Primary insomnia F51.01 and Schizoaffective disorder, depressive type F25.1 [facility] [address] 44638- 7247 21 Dec, 2016 Chronic pain syndrome G89.4 ; Cervicalgia of occipito- atlanto-axial region M54.2 ; Menopausal syndrome (hot flashes) N95.1 and Encounter for immunization Z23 [facility] [address] 06176- 6440 14 Dec, 2016 [facility] [address] 50179- 2275 13 Dec, 2016 [facility] [address] 87198- 6141 Dec, Paranoid schizophrenia F20.0 [facility] [address] [place] [address] 60736- 3973 Dec, Schizoaffective disorder, depressive type F25.1 [facility] [id number] [place] [address] 83277- 9420 Nov, Hypothyroidism, unspecified type E03.9 [facility] [id number] [place] [address] 78746 -3972 Nov, Acute seasonal allergic rhinitis due to other allergen J30.89 [place] [id number] [place] [address] 35645- 0404 Nov, [place] [address] [id number] [place] [address] 38315- 3964 Nov, Hypothyroidism, unspecified type E03.9 and Other elevated white blood cell (WBC) count D72.828 [place] [id number] [place] [address] 98753- 8413 Nov, Schizoaffective disorder, depressive type F25.1 [place] [id number] [place] [address] 55776- 3032 Nov, Paranoid schizophrenia F20.0 [place] [id number] [place] [address] 75356- 1461 Nov, Type 2 diabetes mellitus without complication, without long- term current use of insulin E11.9 ; Morbid obesity due to excess calories E66.01 and Chronic pain syndrome G89.4 [place] [id number] [place] [address] 16541- 2708 Oct, Paranoid schizophrenia F20.0 [place] [id number] [place] [address] 94781- 0703 Oct, [facility] [id number] [place] [address] 39262- 6698 Oct, Schizoaffective disorder, depressive type F25.1 [facility] [id number] [address]- 9398 Oct, Hypothyroidism, unspecified type E03.9 and Other elevated white blood cell (WBC) count D72.828 [facility] [id number] [place] [address] 55745- 1403 Oct, Morbid obesity due to excess calories E66.01 ; Chronic obstructive pulmonary disease, unspecified COPD type J44.9 ; History of lupus Z87.39 ; Hypothyroidism, unspecified type E03.9 ; Gastroesophageal reflux disease without esophagitis K21.9 ; Primary insomnia F51.01 and Chronic pain syndrome G89.4 [facility] [id number] [place] [address] 02884- 0497 Sep, [place] [id number] [place] [address] 15115- 5472 Sep, [facility] [id number] [place] [address] 93561- 6706 Sep, [facility] [id number] [place] [address] 86893- 4042 Sep, Paranoid schizophrenia F20.0 [facility] [id number] [place] [address] 68390- 5773 Sep, [facility] [id number] [place] [address] 51835- 7558 Sep, Paranoid schizophrenia F20.0 [facility] [id number] [place] [address] 46445- 4833 Sep, [facility] [id number] [place] [address] 21081- 8802 August, Paranoid schizophrenia F20.0 [facility] [id number] [place] [address] 61656- 9479 Jul, [facility] [id number] [place] [address] 25372- 2128 18 Apr, 2017 Type 2 diabetes mellitus without complication, without long- term current use of insulin E11.9 ; Morbid obesity due to excess calories E66.01 ; Depression with anxiety F41.8 ; Hypothyroidism, unspecified type E03.9 ; Seasonal allergic rhinitis due to other allergic trigger J30.89 ; Pain, dental K08.89 and Gastroesophageal reflux disease without esophagitis K21.9 [facility] [address] [place] [address] [id number] 12 Jul, 2016 Dental examination Z01.20 [place] [id number] [place] [address] 56595- 0443 07 Jul, 2016 Paranoid schizophrenia F20.[address] 27042- 4116 13 Jun, 2016 Paranoid schizophrenia F20.0 and Depression with anxiety F41.8 [place] [id number] [place] [address] 46054- 6498 10 Jun, 2016 Paranoid schizophrenia F20.0 and Depression with anxiety F41.8 [place] [id number] [place] [address] 96737- 0626 09 Jun, 2016 [place] [id number] [place] [address] 55679- 4031 Jun, [facility] [place] [id number] [place] [address] 19238 -8503 Jun, Seasonal allergic rhinitis due to other allergic trigger J30.89 [facility] [place] [id number] [place] [address] 78004 -9221 May, Sore throat J02.9 ; Other viral agents as the cause of diseases classified elsewhere B97.89 and Acute upper respiratory infection, unspecified J06.9 [place] [id number] [place] [address] 09411- 3816 08 May, 2016 Paranoid schizophrenia F20.0 and Depression with anxiety F41.8 [place] [id number] [place] [address] 35877- 6138 Apr, Other seasonal allergic rhinitis J30.2 [place] [id number] [place] [address] 82754- 3668 Apr, Paranoid schizophrenia F20.0 and Depression with anxiety F41.8 [facility] [id number] [place] [address] 18077 -8564 Apr, Bronchitis J40 and Sore throat J02.9 [place] [address] 97307- 3677 Apr, Type 2 diabetes mellitus without complication, without long- term current use of insulin E11.9 [facility] [address] 76261 -4960 Apr, Bronchitis J40 [place] [address] 07966- 8562 Apr, [place] [id number] [place] [address] 27006- 5023 Apr, [place] [id number] [place] [address] 56025- 0433 Mar, Type 2 diabetes mellitus without complication, [...] R60.9 and Other seasonal allergic rhinitis J30.2 [place] [id number] [place] [address] 42167- 9928 Mar, Paranoid schizophrenia F20.0 and Depression with anxiety F41.8 [place] [id number] [place] [address] 61837- 0545 Feb, [place] [address] 08867- 7467 Feb, [facility] [address] [address]- 7306 Feb, [facility] [id number] [place] [address] 85928- 9821 Feb, [facility] [id number] [place] [address] 04551- 8301 Feb, Type 2 diabetes mellitus without complication, without long- term current use of insulin E11.9 ; ARIAS on CPAP G47.33 and Preoperative evaluation to rule out surgical contraindication Z01.818 [facility] [id number] [place] [address] 93818- 1958 Feb, Paranoid schizophrenia F20.0 and Depression with anxiety F41.8 [facility] [address] [place] [address] 23702- 9125 Jan, [facility] [id number] [place] [address] 21002- 9583 Jan, Paranoid schizophrenia F20.0 and Depression with anxiety F41.8 [facility] [id number] [place] [address] 25119- 5522 Jan, [facility] [address] [place] [address] 22770- 7537 Jan, Muscle strain T14.8 [facility] [address] [place] [address] 05287- 8978 Jan, Paranoid schizophrenia F20.0 [facility] [address] [place] [address] 17935- 6626 Jan, [facility] [id number] [place] [address] 29938- 9755 Jan, Paranoid schizophrenia F20.0 and Depression with anxiety F41.8 [facility] [address] [place] [address] 67704- 6941 Jan, [facility] [id number] [address]- 4484 Jan, [facility] [address] [address]- 9366 Dec, [facility] [id number] [place] [address] 07886- 1806 Dec, Paranoid schizophrenia F20.0 [facility] [id number] [place] [address] 51045- 4544 Dec, Paranoid schizophrenia F20.0 and Depression with anxiety F41.8 [facility] [address] [place] [address] 08456- 6783 Nov, [facility] [id number] [place] [address] 76352- 3692 Nov, Paranoid schizophrenia F20.0 [place] [id number] [place] [address] 17293- 2667 Nov, Paranoid schizophrenia F20.0 and Depression with anxiety F41.8 [facility] [address] [address]- 6400 Nov, Type 2 diabetes mellitus without complication, without long- term current use of insulin E11.9 ; Paranoid schizophrenia F20.0 ; Chronic obstructive pulmonary disease, unspecified COPD type J44.9 ; Morbid obesity due to excess calories E66.01 and Parkinsonian tremor G20 [facility] [address] [address]- 0287 Nov, [facility] [address] [address]- 6687 Oct, Paranoid schizophrenia F20.0 [facility] [address] [address]- 8547 Oct, Paranoid schizophrenia F20.0 [facility] [address] [address]- 1607 Oct, Paranoid schizophrenia F20.0 and Depression with anxiety F41.8 [place] [address] [address]- 7244 Oct, [place] [id number] [place] [address] 37878- 1299 Oct, Paranoid schizophrenia F20.0 and Depression with anxiety F41.8 [place] [address] [place] [address] 39893- 3804 Oct, Nasal sore J34.89 [place] [id number] [place] [address] 25750- 7736 Oct, Type 2 diabetes mellitus without complication, without long- term current use of insulin E11.9 ; Depression with anxiety F41.8 ; Hypothyroidism, unspecified type E03.9 and History of lupus Z87.39 [place] [id number] [place] [address] 32964- 5068 Oct, [place] [id number] [place] [address] 61578- 2853 Oct, Type 2 diabetes mellitus without complication, [...] edema R60.9 and History of lupus Z87.39 [place] [address] [address]- 6404 Feb, [place] [id number] [place] [address] 07217- 4555 Jan, [place] [address] [address]- 5525 Jan, [place] [address] [place] [address]- 1684 Jan, [facility] [address] [facility] [id number] [place] [address]- 3257 Dec, [facility] [address] [facility] [id number] [place]- 6622 Nov, [facility] [address] [place] [address]- 5297 Nov, [facility] [address] [facility] [id number] [place] [address]- 1701 Oct, [facility] [address] [place] [address]- 3964 Oct, [facility] [address] [place] [address]- 2003 Oct, [facility] [address] [place] [address]- 6828 Sep, Allergic rhinitis 477.9 [facility] [address] [place] [id number] [place] [address]- 1207 Sep, Rhinitis, allergic 477.9 [facility] [address] [address]- 4493 Sep, Rhinitis, allergic 477.9 [facility] [address] [place] [address]- 2641 Sep, [facility] [id number] [address]- 7643 August, [facility] [address] [facility] [id number] [place] [address]- 9273 August, [facility] [address] [id number] 4546 August, [facility] [address] [place] [address]- 9050 Jul, [facility] [address] [facility] [id number] [place] [address]- 1359 14 Jul, 2014 [facility] [place] [facility] [address] [id number] [place] [address]- 0553 13 Jul, 2014 [facility] [place] [facility] [address] [id number] [place] [address]- 3965 16 Jun, 2014 [facility] [place] [facility] [address] [id number] [place] [address]- 8905 16 Jun, 2014 [facility] [place] [facility] [address] [id number] [place] [address]- 6383 12 Jun, 2014 [facility] [place] [facility] [address] [id number] [place] [address] Jun, [facility] [place] [facility] [address] [id number] [place] [address] Jun, [facility] [place] [facility] [address] [id number] [place] [address] Jun, [facility] [place] [facility] [address] [id number] [place] [address] Jun, [facility] [place] [facility] [address] [id number] [place] [address] Jun, [facility] [place] [facility] [address] [id number] [place] [address] May, [facility] [place] [facility] [address] [id number] [place] [address] May, [facility] [place] [facility] [address] [id number] [place] [address] May, [facility] [place] [facility] [address] [id number] [place] [address] May, [facility] [place] [facility] [address] [id number] [place] [address] Apr, [facility] [place] [facility] [address] [id number] [place] [address] Mar, [facility] [place] [facility] [address] [id number] [place] [address] Mar, [facility] [place] [facility] [address] [id number] [place] [address] Mar, [facility] [place] [facility] [address] [id number] [place] [address] Mar, [facility] [place] [facility] [address] [id number] [place] [address] Mar, [facility] [place] [facility] [address] [id number] [place] [address] Mar, [facility] [place] [facility] [address] [id number] [place] [address] Mar, [facility] [place] [facility] [address] [id number] [place] [address] Mar, [facility] [place] [facility] [address] [id number] [place] [address] Mar, [facility] [place] [facility] [address] [id number] [place] [address] Feb, [facility] [place] [facility] [address] [id number] [place] [address] 83[address] Feb, [facility] [place] [facility] [address] [id number], [place] [address] Feb, [facility] [place] [facility] [address] [id number], [place] [address] Feb, [facility] [place] [facility] [address] [id number] [place] [address] Feb, [facility] [place] [facility] [address] [id number] [place] [address] Feb, [facility] [place] [facility] [address] [id number] [place] [address] Feb, [facility] [place] [facility] [address] [id number] [place] [address] 12 Feb, 2014 [facility] [place] [facility] [address] [id number] [place] [address] 23 Jan, 2014 [facility] [place] [facility] [address] [id number] [place] [address] 23 Jan, 2014 [facility] [place] [facility] [address] [id number] [place] [address]- [address] 16 Jan, 2014 [facility] [place] [facility] [address] [id number] [place] [address]- 1420 16 Jan, 2014 [facility] [place] [facility] [address] [id number] [place] [address]- 7[address] 15 Jan, 2014 [facility] [place] [facility] [address] [id number] [place] [address]- 6[address] 15 Jan, 2014 [facility] [place] [facility] [address] [id number] [place] [address]- 1434 14 Jan, 2014 [facility] [place] [facility] [address] [id number] [place] [address]- 3070 14 Jan, 2014 [facility] [place] [facility] [address] [id number] [place] [address]- [address] 14 Jan, 2014 [facility] [place] [facility] [address] [id number] [place] [address]- 4585 14 Jan, 2014 [facility] [place] [facility] [address] [id number] [place] [address] 6632 18 Dec, 2013 [facility] [place] [facility] [address] [id number] [place] [address]- 4490 18 Dec, 2013 [facility] [place] [facility] [address] [id number] [place] [address]- 1464 10 Dec, 2013 [facility] [place] [facility] [address] [id number] [place] [address]- 2320 10 Dec, 2013 [facility] [place] [facility] [address] [id number] [place] [address]- 6489 Nov, [facility] [place] [facility] [address] [id number] [place] [address] 8094 Nov, [facility] [place] [facility] [address] [id number] [place] [address] 3595 Nov, [facility] [place] [facility] [address] [id number] [place] [address] 3218 Nov, [facility] [place] [facility] [address] [id number] [place] [address]- 2538 Nov, [facility] [place] [facility] [address] [id number] [place] [address]- 0741 Oct, [facility] [place] [facility] [address] [id number] [place] [address] 5714 Oct, [facility] [place] [facility] [address] [id number] [place] [address]- 6[address] Oct, [facility] [place] [facility] [address] [id number] [place] [address] 8801 Oct, [facility] [place] [facility] [address] [id number] [place] [address] Sep, [facility] [place] [facility] [address] [id number] [place] [address] 9111 Sep, [facility] [place] [facility] [address] [id number] [place] [address] 4824 Sep, [facility] [place] [facility] [address] [id number] [place] [address]- 8754 Sep, [facility] [place] [facility] [address] [id number] [place] [address] 4252 Sep, [facility] [place] [facility] [address] [id number] [place] [address]- 0498 Sep, [facility] [place] [facility] [address] [id number] [place] [address]- 0231 Sep, [facility] [place] [facility] [address] [id number] [place] [address]- 0592 Sep, [facility] [place] [facility] [address] [id number] [place] [address]- 3942 August, [facility] [place] [facility] [address] [id number] [place] [address]- 0874 August, [facility] [place] [facility] [address] [id number] [place] [address] 4500 August, [facility] [place] [facility] [address] [id number] [place] [address]- 0791 August, [facility] [place] [facility] [address] [id number] [place] [address]- 9276 August, [facility] [place] [facility] [address] [id number] [place] [address]- 4589 August, [facility] [place] [facility] [address] [id number] [place] [address]- 3744 August, [facility] [place] [facility] [address] [id number] [place] [address]- 3451 Jul, [facility] [place] [facility] [address] [id number] [place] [address]- 8039 Jul, [facility] [place] [facility] [address] [id number] [place] [address]- 7309 Jul, [facility] [place] [facility] [address] [id number] [place] [address]- 8606 Jul, [facility] [place] [facility] [address] [id number] [place] [address]- 6687 Jul, [facility] [place] [facility] [address] [id number] [place] [address]- 7121 Jul, [facility] [place] [facility] [address] [id number] [place] [address]- 9048 Jul, [facility] [place] [facility] [address] [id number] [place] [address]- 4987 Jul, [facility] [place] [facility] [address] [id number] [place] [address]- 0278 10 Jul, 2013 [facility] [place] [facility] [address] [id number] [place] [address]- 8694 Jul, [facility] [place] [facility] [address] [id number] [place] [address]- 0136 Jul, [facility] [place] [facility] [address] [id number] [place] [address]- 0434 Jul, [facility] [place] [facility] [address] [id number] [place] [address]- 6098 Jun, [facility] [place] [facility] [address] [id number] [place] [address]- 7142 Jun, [facility] [place] [facility] [address] [facility] [id number] [place] [address]- 9126 Jun, [facility] [place] [facility] [address] [id number] [place] [address]- 6155 Jun, [facility] [place] [facility] [address] [id number] [place] [address]- 8425 Jun, [facility] [place] [facility] [address] [id number] [place] [address]- 0672 May, [facility] [place] [facility] [address] [facility] [id number] [place] [address]- 3253 May, [facility] [place] [facility] [address] [id number] [place] [address]- 3363 May, [facility] [place] [facility] [address] [id number] [place] [address]- 0626 May, [facility] [place] [facility] [address] [id number] [place] [address]- 0194 May, [facility] [place] [facility] [address] [id number] [place] [address] May, [facility] [place] [facility] [address] [id number] [place] [address]- 1548 May, [facility] [place] [facility] [address] [id number] [place] [address] May, [facility] [place] [facility] [address] [id number] [place] [address]- 0485 Mar, [facility] [place] [facility] [address] [id number] [place] [address]- 6289 Mar, [facility] [place] [facility] [address] [id number] [place] [address] Mar, [facility] [place] [facility] [address] [id number] [place] [address] Mar, [facility] [place] [facility] [address] [id number] [place] [address]- 1440 Mar, [facility] [place] [facility] [address] [id number] [place] [address] Mar, [facility] [place] [facility] [address] [id number], [place] [address]- 0544 Feb, [facility] [place] [facility] [address] [id number], [place] [address]- 8376 Feb, [facility] [place] [facility] [address] [id number], [place] [address]- 6816 Jan, [facility] [place] [facility] [address] [id number], [place] [address]- 3724 Jan, [facility] [place] [facility] [address] [id number], [place] [address]- 7311 Jan, [facility] [place] [facility] [address] [id number], [place] [address]- 6638 Jan, [facility] [place] [facility] [address] [id number], [place] [address]- 4375 Jan, [facility] [place] [facility] [address] [id number], [place] [address]- 3129 Jan, [facility] [place] [facility] [address] [id number] [place] [address]- 2546 Jan, [facility] [address] [id number] [place] [address]- 9069 Jan, [facility] [address] [id number] [place] [address]- 2546 Jan, [facility] [address] [id number] [place] [address]- 8656 Jan, [facility] [address] [id number] [place] [address]- 4990 Dec, [facility] [address] [id number] [place] [address]- 7826 Nov, [facility] [address] [id number] [place] [address]- 4380 Nov, [facility] [address] [id number] [place] [address]- 3564 Nov, [facility] [address] [id number] [place] [address]- 2729 Oct, [facility] [address] [id number] [place] [address]- 2090 Oct, [facility] [address] [id number] [place] [address]- 4804 August, [facility] [address] [id number] [place] [address]- 8643 Apr, [facility] [address] [id number] [place] [address]- 7621 Apr, [facility] [place] [facility] [address] [id number] [place] [address]- 8341 Feb, [facility] [place] [facility] [address] [id number] [place] [address]- 2546 Feb, [facility] [address] [id number] [place] [address]- 1289 Dec, [facility] [address] [facility] [id number], [place] [address]- 9349 Dec, [facility] [address] [facility] [id number], [place] [address]- 1658 Oct, [facility] [address] [facility] [id number], [place] [address]- 9599 Oct, [facility] [address] [id number], [place] [address]- 0808 Oct, [facility] [address] [facility] [id number], [place] [address]- 5209 Jul, IMMUNIZATIONS No Known Immunizations SOCIAL HISTORY Never Assessed REASON FOR VISIT Lab Results/Deferred Lab PLAN OF CARE VITAL SIGNS MEDICATIONS Unknown [...]
--- OUTSIDE RECORDS SUMMARY | 2018-09-02 14:12 | XMS REPORT ---
Author Author EDWIN UMESH Organization [facility] Address [address] [place] [address] Care Team Providers Care Rn Circulating Name Role Phone UMESH PINEDA Unavailable PROBLEMS Type Condition ICD9-CM Code DNI44-PO Code Onset Dates Condition Status SNOMED Code Problem Other seasonal allergic rhinitis J30.2 Active 390458041 Problem Gastroesophageal reflux disease, esophagitis presence not specified K21.9 Active 587483458 Problem Tobacco abuse Z72.0 Active 886642996 Problem Seasonal allergic rhinitis due to pollen J30.1 Active 81796900 Problem History of lupus Z87.39 Active 169636651 Problem COPD exacerbation J44.1 Active 189488406 Problem OAB (overactive bladder) N32.81 Active 205146673 Problem Morbid obesity due to excess calories E66.01 Active 268597018 Problem Dyslipidemia E78.5 Active 436117637 Problem Migraine without aura and without status migrainosus, not intractable G43.009 Active 135235907 Problem Hypothyroidism (acquired) E03.9 Active 900442670 Problem Essential hypertension I10 Active 45010700 Problem Type 2 diabetes mellitus without complication, without long-term current use of insulin E11.9 Active 125720499 Problem Gastroesophageal reflux disease without esophagitis K21.9 Active 384119820 Problem Chronic pain syndrome G89.4 Active 269006857 Problem Paranoid schizophrenia F20.0 Active 87072990 Problem Primary insomnia F51.01 Active 8245981 Problem DM neuro manif type II E11.49 Active 17808519 Problem Depression with anxiety F41.8 Active 209130089 Problem Seasonal allergic rhinitis due to other allergic trigger J30.89 Active 071694010 Problem Menopausal syndrome (hot flashes) N95.1 Active 434124382 Problem Chronic obstructive pulmonary disease, unspecified COPD type J44.9 Active 46891715 Problem Schizoaffective disorder, depressive type F25.1 Active 27874939 Problem Other allergic rhinitis J30.89 Active 817672112 ALLERGIES No Information ENCOUNTERS Encounter Location Date Diagnosis [facility] [id number] [place] [address] 33250- 2055 Nov, [place] [address] 36031- 7371 Sep, [place] [address] 57169- 2022 August, History of lupus Z87.39 and Chronic pain syndrome G89.4 [place] [address] 20461- 5648 August, [facility] [address] 42650 -4648 August, Seasonal allergic rhinitis, unspecified trigger J30.2 and BMI 45.0-49.9, adult Z68.42 [place] [address] 71184- 5339 Jul, Schizoaffective disorder, depressive type F25.1 [place] [address] 24659- 5382 Jul, [place] [address] 16176- 8609 Jul, Hypothyroidism (acquired) E03.9 [place] [address] 33869- 4854 Jul, Chronic obstructive pulmonary disease, unspecified COPD type J44.9 and Type 2 diabetes mellitus without complication, without long-term current use of insulin E11.9 [place] [address] [id number] [place] [address] 22385- 6494 Jul, Paranoid schizophrenia F20.0 [place] [address] 81004- 4973 Jun, Hypothyroidism (acquired) E03.9 and Seasonal allergic rhinitis due to pollen J30.1 [facility] [address] 52907 -3294 Jun, Shortness of breath at rest R06.02 ; COPD exacerbation J44.1 and BMI 45.0-49.9, adult Z68.42 [facility] [id number] [place] [address] 67504- 7706 Jun, [facility] [id number] [place] [address] 02722- 0271 Jun, Paranoid schizophrenia F20.0 ; Depression with anxiety F41.8 and BMI 45.0-49.9, adult Z68.42 [facility] [id number] [place] [address] 30217- 4149 Jun, Schizoaffective disorder, depressive type F25.1 [facility] [id number] [place] [address] [id number] Jun, Dental caries K02.9 [place] [id number] [place] [address] 68020- 5575 Jun, Paranoid schizophrenia F20.0 [facility] [id number] [place] [address] 03736- 0779 May, Migraine without aura and without status migrainosus, not intractable G43.009 ; DM neuro manif type II E11.49 and Type 2 diabetes mellitus without complication, without long-term current use of insulin E11.9 [facility] [id number] [place] [address] 87813- 0241 May, Migraine without aura and without status migrainosus, not intractable G43.009 [facility] [id number] [place] [address] 09514- 8826 May, Depression with anxiety F41.8 [facility] [id number] [place] [address] [id number] May, [facility] [id number] [place] [address] 28151- 5674 May, [facility] [id number] [place] [address] 38481- 3190 May, [place] [address] 33551- 9843 May, Hypothyroidism (acquired) E03.9 [place] [address] 07852- 3232 May, Paranoid schizophrenia F20.0 [place] [address] 81705- 2856 May, Type 2 diabetes mellitus without complication, [...] N32.81 and Controlled substance agreement signed Z79.899 [place] [address] 57594- 4875 May, Controlled substance agreement signed Z79.899 [place] [address] 76150- 4211 Apr, [facility] [address] [id number] Apr, Dental examination Z01.20 [place] [address] 78599- 8076 Apr, Paranoid schizophrenia F20.0 [place] [id number] [place] [address] 64665- 9146 Apr, Hypertension, unspecified type I10 [place] [address] 59681- 8416 Apr, Paranoid schizophrenia F20.0 [facility] [id number] [place] [address] 58158- 8615 Apr, [facility] [id number] [place] [address] 89789- 2006 Apr, Tobacco abuse Z72.0 [facility] [id number] [place] [address] 39581- 3454 Apr, [facility] [id number] [place] [address] 19603- 2045 Mar, [facility] [id number] [place] [address] 98171- 4357 Mar, Paranoid schizophrenia F20.0 and BMI 45.0-49.9, adult Z68.42 [place] [id number] [place] [address] 45867- 7003 Mar, Schizoaffective disorder, depressive type F25.1 [facility] [id number] [place] [address] 24392- 4234 Mar, [facility] [id number] [place] [address] 09535- 7455 Mar, Hypothyroidism, unspecified type E03.9 [facility] [id number] [place] [address] 76660- 9746 Mar, Schizoaffective disorder, depressive type F25.1 [facility] [id number] [place] [address] 19197 -4433 Feb, Gastroenteritis K52.9 and BMI 45.0-49.9, adult Z68.42 [facility] [id number] [place] [address] 59142- 8528 Feb, [facility] [id number] [place] [address] 45624- 0611 Feb, [facility] [address] [place] [address]- 0930 Feb, [place] [address] 17171- 7310 Feb, [place] [address] 06546- 6600 Feb, Paranoid schizophrenia F20.0 [place] [address] 32218- 2113 Feb, Gastroesophageal reflux disease without esophagitis K21.9 ; Other seasonal allergic rhinitis J30.2 ; Other allergic rhinitis J30.89 ; Tobacco abuse Z72.0 and BMI 40.0-44.9, adult Z68.41 [place] [address] 58065- 3470 Feb, Onychomycosis B35.1 ; Callus of foot L84 and DM neuro manif type II E11.49 [place] [address] 33251- 2881 Jan, Chronic allergic rhinitis J30.9 [place] [address] 90567- 3089 Jan, [place] [address] 23274- 8212 Jan, Schizoaffective disorder, depressive type F25.1 [place] [id number] [place] [address] 88709- 7692 Jan, [facility] [id number] [place] [address] 51430 -0879 Jan, Sore throat J02.9 and Seasonal allergic rhinitis due to other allergic trigger J30.89 [place] [id number] [place] [address] 50409- 4257 Jan, [place] [id number] [place] [address] 49056- 5122 Jan, [facility] [id number] [place] [address] 15226 -8055 Jan, Chronic allergic rhinitis J30.9 [facility] [address] 12669- 0029 Dec, Paranoid schizophrenia F20.0 ; Primary insomnia F51.01 and Schizoaffective disorder, depressive type F25.1 [place] [address] 21287- 6149 Dec, Chronic pain syndrome G89.4 ; Cervicalgia of occipito- atlanto-axial region M54.2 ; Menopausal syndrome (hot flashes) N95.1 and Encounter for immunization Z23 [place] [address] 33604- 1435 14 Dec, 2016 [place] [address] 34676- 1210 Dec, [place] [address] 84200- 0993 08 Dec, 2016 Paranoid schizophrenia F20.0 [place] [address] 39939- 7295 Dec, Schizoaffective disorder, depressive type F25.1 [place] [address] 92413- 8433 Nov, Hypothyroidism, unspecified type E03.9 [facility] [address] 28367 -4584 Nov, Acute seasonal allergic rhinitis due to other allergen J30.89 [place] [address] 85865- 0078 Nov, [place] [address] 80450- 0125 Nov, Hypothyroidism, unspecified type E03.9 and Other elevated white blood cell (WBC) count D72.828 [place] [address] 05045- 8126 Nov, Schizoaffective disorder, depressive type F25.1 [place] [id number] [place] [address] 17479- 0826 Nov, Paranoid schizophrenia F20.0 [place] [id number] [place] [address] 80124- 4000 Nov, Type 2 diabetes mellitus without complication, without long- term current use of insulin E11.9 ; Morbid obesity due to excess calories E66.01 and Chronic pain syndrome G89.4 [place] [id number] [place] [address] 56895- 8616 Oct, Paranoid schizophrenia F20.0 [place] [id number] [place] [address] 15265- 6741 Oct, [place] [id number] [place] [address] 17041- 7965 Oct, Schizoaffective disorder, depressive type F25.1 [place] [id number] [place] [address] 79713- 2578 Oct, Hypothyroidism, unspecified type E03.9 and Other elevated white blood cell (WBC) count D72.828 [place] [address] [place] [address] 18561- 7496 Oct, Morbid obesity due to excess calories E66.01 ; Chronic obstructive pulmonary disease, unspecified COPD type J44.9 ; History of lupus Z87.39 ; Hypothyroidism, unspecified type E03.9 ; Gastroesophageal reflux disease without esophagitis K21.9 ; Primary insomnia F51.01 and Chronic pain syndrome G89.4 [place] [id number] [place] [address] 91735- 6796 Sep, [place] [id number] [place] [address] 76481- 9339 Sep, [place] [id number] [place] [address] 52553- 1631 Sep, [facility] [address] [address]- 2778 Sep, Paranoid schizophrenia F20.0 [facility] [id number] [place] [address] 84075- 5360 Sep, [facility] [id number] [place] [address] 02973- 2449 Sep, Paranoid schizophrenia F20.0 [facility] [id number] [place] [address] 39955- 9737 Sep, [facility] [id number] [place] [address] 94958- 8759 August, Paranoid schizophrenia F20.0 [facility] [id number] [place] [address] 15799- 0018 Jul, [facility] [id number] [place] [address] 08031- 7996 Jul, Type 2 diabetes mellitus without complication, without long- term current use of insulin E11.9 ; Morbid obesity due to excess calories E66.01 ; Depression with anxiety F41.8 ; Hypothyroidism, unspecified type E03.9 ; Seasonal allergic rhinitis due to other allergic trigger J30.89 ; Pain, dental K08.89 and Gastroesophageal reflux disease without esophagitis K21.9 [facility] [address] [id number] Jul, Dental examination Z01.20 [facility] [id number] [place] [address] 16374- 6868 Jul, Paranoid schizophrenia F20.0 [facility] [id number] [place] [address] 05418- 2046 13 Jun, 2016 Paranoid schizophrenia F20.0 and Depression with anxiety F41.8 [facility] [address] [place] [address] 41416- 0873 Jun, Paranoid schizophrenia F20.0 and Depression with anxiety F41.8 [place] [id number] [place] [address] 73194- 7769 Jun, [place] [address] 96021- 1562 Jun, [facility] [place] [id number] [place] [address] 82767 -3568 Jun, Seasonal allergic rhinitis due to other allergic trigger J30.89 [facility] [place] [id number] [place] [address] 16407 -7746 May, Sore throat J02.9 ; Other viral agents as the cause of diseases classified elsewhere B97.89 and Acute upper respiratory infection, unspecified J06.9 [place] [id number] [place] [address] 65938- 9328 08 May, 2016 Paranoid schizophrenia F20.0 and Depression with anxiety F41.8 [place] [address] 14257- 7544 Apr, Other seasonal allergic rhinitis J30.2 [place] [id number] [place] [address] 43906- 2915 Apr, Paranoid schizophrenia F20.0 and Depression with anxiety F41.8 [facility] [place] [id number] [place] [address] 93116 -6122 Apr, Bronchitis J40 and Sore throat J02.9 [place] [id number] [place] [address] 95993- 8642 Apr, Type 2 diabetes mellitus without complication, without long- term current use of insulin E11.9 [facility] [id number] [place] [address] 31609 -2459 Apr, Bronchitis J40 [place] [id number] [place] [address] 55356- 8197 Apr, [place] [address] 32346- 6557 Apr, [place] [id number] [place] [address] 64476- 4078 Mar, Type 2 diabetes mellitus without complication, [...] R60.9 and Other seasonal allergic rhinitis J30.2 [place] [address] 28825- 0306 Mar, Paranoid schizophrenia F20.0 and Depression with anxiety F41.8 [place] [address] 35627- 7585 Feb, [place] [address] 62656- 9835 Feb, [place] [address] 05873- 4780 Feb, [place] [address] 45869- 5824 Feb, [place] [address] 15866- 0584 Feb, Type 2 diabetes mellitus without complication, without long- term current use of insulin E11.9 ; ARIAS on CPAP G47.33 and Preoperative evaluation to rule out surgical contraindication Z01.818 [place] [id number] [place] [address] 20222- 7948 Feb, Paranoid schizophrenia F20.0 and Depression with anxiety F41.8 [facility] [address] 85693- 2620 Jan, [place] [address] 78946- 3039 Jan, Paranoid schizophrenia F20.0 and Depression with anxiety F41.8 [facility] [address] [facility] [id number] [address]- 1543 17 Jan, 2016 [facility] [address] [facility] [id number] [place] [address] 22187- 2057 14 Jan, 2016 Muscle strain T14.8 [facility] [address] [facility] [id number] [place] [address] 15673- 2093 Jan, Paranoid schizophrenia F20.0 [facility] [address] [facility] [id number], [place] [address]- 8808 Jan, [facility] [address] [facility] [id number] [place] [address] 48820- 9064 Jan, Paranoid schizophrenia F20.0 and Depression with anxiety F41.8 [facility] [address] [id number] [address]- 6889 Jan, [facility] [address] [facility] [id number], [place] [address]- 1711 Jan, [facility] [address] [facility] [id number], [place] [address]- 6476 28 Dec, 2015 [facility] [address] [facility] [id number], [place] [address]- 1630 23 Dec, 2015 Paranoid schizophrenia F20.0 [facility] [id number] [address]- 9608 16 Dec, 2015 Paranoid schizophrenia F20.0 and Depression with anxiety F41.8 [facility] [address] [facility] [id number], [place] [address]- 5985 Nov, [facility] [address] [facility] [id number], [place] [address]- 0584 24 Nov, 2015 Paranoid schizophrenia F20.0 [facility] [address] [facility] [id number], [place] [address]- 3764 Nov, Paranoid schizophrenia F20.0 and Depression with anxiety F41.8 [place] [id number] [place] [address] 60919- 5961 Nov, Type 2 diabetes mellitus without complication, without long- term current use of insulin E11.9 ; Paranoid schizophrenia F20.0 ; Chronic obstructive pulmonary disease, unspecified COPD type J44.9 ; Morbid obesity due to excess calories E66.01 and Parkinsonian tremor G20 [place] [id number] [place] [address] 82998- 5197 Nov, [place] [address] [place] [id number] [place] [address] 70316- 5925 Oct, Paranoid schizophrenia F20.0 [place] [address] [place] [address] [id number] [place] [address] 20315- 0144 Oct, Paranoid schizophrenia F20.0 [place] [address] [place] [address] [id number] [place] [address] 74304- 2195 Oct, Paranoid schizophrenia F20.0 and Depression with anxiety F41.8 [place] [address] [place] [id number] [place] [address] 55045- 9739 Oct, [place] [address] [place] [id number] [place] [address] 35362- 0952 Oct, Paranoid schizophrenia F20.0 and Depression with anxiety F41.8 [place] [address] [place] [id number] [place] [address] 17011- 2598 Oct, Nasal sore J34.89 [place] [address] [place] [id number] [place] [address] 82669- 1659 Oct, Type 2 diabetes mellitus without complication, without long- term current use of insulin E11.9 ; Depression with anxiety F41.8 ; Hypothyroidism, unspecified type E03.9 and History of lupus Z87.39 [place] [address] [place] [address] 34395- 7273 Oct, [place] [address] [place] [id number] [place] [address] 12744- 9512 Oct, Type 2 diabetes mellitus without complication, [...] and History of lupus Z87.39 [facility] [address] 20628- 9606 Feb, [facility] [address] 69661- 5856 Jan, [facility] [address] 98388- 6066 Jan, [facility] [address] 95358- 5296 Jan, [facility] [address] 35015- 9416 Dec, [facility] [id number] [place] [address] 37651- 9986 Nov, [facility] [id number] [place] [address] 29580- 9096 Nov, [facility] [address] 41533- 2546 Oct, [facility] [address] 77682- 2246 Oct, [facility] [address] 51041 2546 Oct, [facility] [address] 95251- 8226 Sep, Allergic rhinitis 477.9 [facility] [address] [id number] [place] [address]- 7309 11 Sep, 2014 Rhinitis, allergic 477.9 [facility] [address] [facility] [id number] [place] [address]- 2368 10 Sep, 2014 Rhinitis, allergic 477.9 [facility] [address] [place] [id number] [place] [address]- 8102 Sep, [facility] [address] [facility] [id number] [place] [address]- 2781 August, [facility] [address] [id number] [place] [address]- 3239 August, [facility] [address] [facility] [id number] [place] [address]- 7812 August, [facility] [address] [place] [address]- 6380 Jul, [facility] [address] [place] [address]- 6831 Jul, [facility] [address] [place] [address]- 2212 Jul, [facility] [address] [place] [address]- 4132 16 Jun, 2014 [facility] [id number] [place] [address] 16 Jun, 2014 [facility] [place] [facility] [id number] [place] [address] Jun, [facility] [place] [facility] [id number] [place] [address] Jun, [facility] [place] [facility] [address] [facility] [id number] [place] [address] Jun, [facility] [place] [facility] [id number] [place] [address] Jun, [facility] [place] [facility] [address] [id number] [place] [address] Jun, 2014 [facility] [place] [facility] [address] [id number] [place] [address] [address] Jun, 2014 [facility] [place] [facility] [address] [id number] [place] [address] May, 2014 [facility] [place] [facility] [address] [id number] [place] [address] May, 2014 [facility] [place] [facility] [address] [id number] [place] [address] May, 2014 [facility] [place] [facility] [address] [id number] [place] [address] May, [facility] [place] [facility] [address] [id number] [place] [address] Apr, [facility] [place] [facility] [address] [id number] [place] [address] Mar, [facility] [place] [facility] [address] [id number] [place] [address] Mar, [facility] [place] [facility] [address] [id number] [place] [address]- 3754 Mar, [facility] [place] [facility] [address] [id number] [place] [address] Mar, [facility] [place] [facility] [address] [id number] [place] [address] Mar, [facility] [place] [facility] [address] [id number] [place] [address] Mar, [facility] [place] [facility] [address] [id number] [place] [address] 50[address] Mar, [facility] [place] [facility] [address] [id number] [place] [address] Mar, [facility] [place] [facility] [address] [id number] [place] [address] Mar, [facility] [place] [facility] [address] [id number] [place] [address] 16[address] Feb, [facility] [place] [facility] [address] [id number] [place] [address] Feb, [facility] [place] [facility] [address] [id number] [place] [address] Feb, [facility] [place] [facility] [address] [id number] [place] [address] Feb, [facility] [place] [facility] [address] [id number] [place] [address] 9[address] Feb, [facility] [place] [facility] [address] [id number] [place] [address] 92[address] Feb, [facility] [place] [facility] [address] [id number] [place] [address]100 Feb, [facility] [place] [facility] [address] [id number] [place] [address] 12[address] Feb, [facility] [place] [facility] [address] [id number] [place] [address] Jan, [facility] [place] [facility] [address] [id number] [place] [address]- 8534 23 Jan, 2014 [facility] [place] [facility] [address] [id number] [address] 16 Jan, 2014 [facility] [place] [facility] [address] [id number], [place] [address] 16 Jan, 2014 [facility] [place] [facility] [address] [id number] [place] [address] 15 Jan, 2014 [facility] [place] [facility] [address] [id number], [place] [address] 15 Jan, 2014 [facility] [place] [facility] [address] [id number], [place] [address] 14 Jan, 2014 [facility] [place] [facility] [address] [id number] [place] [address] 4272 14 Jan, 2014 [facility] [place] [facility] [address] [id number] [place] [address] 359[address] 14 Jan, 2014 [facility] [place] [facility] [address] [id number] [place] [address]- 5[address] 14 Jan, 2014 [facility] [place] [facility] [address] [id number] [place] [address] 0297 18 Dec, 2013 [facility] [place] [facility] [address] [id number] [place] [address] 2458 18 Dec, 2013 [facility] [place] [facility] [address] [id number] [place] [address] 0847 10 Dec, 2013 [facility] [place] [facility] [address] [id number] [place] [address]206 Dec, [facility] [place] [facility] [address] [id number] [place] [address] 4716 Nov, [facility] [place] [facility] [address] [id number] [place] [address] 1550 Nov, [facility] [place] [facility] [address] [id number] [place] [address]- 1782 Nov, [facility] [place] [facility] [address] [id number] [place] [address] 6933 Nov, [facility] [place] [facility] [address] [id number] [place] [address] 0329 Nov, [facility] [place] [facility] [address] [id number] [place] [address]193 Oct, [facility] [place] [facility] [address] [id number] [place] [address] 6695 Oct, [facility] [place] [facility] [address] [id number] [place] [address] Oct, [facility] [place] [facility] [address] [id number] [place] [address] 1879 Oct, [facility] [place] [facility] [address] [id number] [place] [address]30 Sep, [facility] [place] [facility] [address] [id number] [place] [address]137 Sep, [facility] [place] [facility] [address] [id number] [place] [address]- 6235 Sep, [facility] [place] [facility] [address] [id number] [place] [address]- 3568 Sep, [facility] [place] [facility] [address] [id number] [place] [address]- 8[address] Sep, [facility] [place] [facility] [address] [id number] [place] [address]- 9971 Sep, [facility] [place] [facility] [address] [id number] [place] [address]- 0191 Sep, [facility] [place] [facility] [address] [id number] [place] [address]- 3681 Sep, [facility] [place] [facility] [address] [id number] [place] [address] 3[address] August, [facility] [place] [facility] [address] [id number] [place] [address]- 9876 August, [facility] [place] [facility] [address] [id number] [place] [address] 4439 August, [facility] [place] [facility] [address] [id number] [place] [address]- 6556 August, [facility] [place] [facility] [address] [id number] [place] [address] 3074 August, [facility] [place] [facility] [address] [id number] [place] [address]- 9296 August, [facility] [place] [facility] [address] [id number] [place] [address] August, [facility] [place] [facility] [address] [id number] [place] [address]- 2257 Jul, [facility] [place] [facility] [address] [id number] [place] [address]- 9794 Jul, [facility] [place] [facility] [address] [id number] [place] [address]- 9538 Jul, [facility] [place] [facility] [address] [id number] [place] [address]- 6178 Jul, [facility] [place] [facility] [address] [id number] [place] [address]- 5071 Jul, [facility] [place] [facility] [address] [id number] [place] [address]- 6152 Jul, [facility] [place] [facility] [address] [id number] [place] [address]- 5848 Jul, [facility] [place] [facility] [address] [id number] [place] [address]- 5084 Jul, [facility] [place] [facility] [address] [id number] [place] [address]- 8098 Jul, [facility] [place] [facility] [address] [id number] [place] [address]- 8420 Jul, [facility] [place] [facility] [address] [id number] [place] [address]- 8190 Jul, [facility] [place] [facility] [address] [id number] [place] [address]- 6560 Jul, [facility] [place] [facility] [address] [id number] [place] [address]- 8314 Jun, [facility] [place] [facility] [address] [id number] [place] [address]- 8942 31 Jun, 2013 [facility] [place] [facility] [address] [id number] [place] [address]- 5501 Jun, [facility] [place] [facility] [address] [id number] [place] [address]- 8967 Jun, [facility] [place] [facility] [address] [id number] [place] [address]- 0073 Jun, [facility] [place] [facility] [address] [id number] [place] [address]- 9323 May, [facility] [place] [facility] [address] [id number] [place] [address]- 3476 May, [facility] [place] [facility] [address] [id number] [place] [address]- 6587 May, [facility] [place] [facility] [address] [id number] [place] [address]- 0432 May, [facility] [place] [facility] [address] [id number] [place] [address]- 6927 May, [facility] [place] [facility] [address] [facility] [id number] [place] [address]- 4610 May, [facility] [place] [facility] [address] [facility] [id number] [place] [address]- 9448 May, [facility] [place] [facility] [address] [facility] [id number] [place] [address]- 9054 May, [facility] [place] [facility] [address] [facility] [id number] [place] [address]- 0869 Mar, [facility] [place] [facility] [address] [facility] [id number] [place] [address]- 9638 Mar, [facility] [place] [facility] [address] [id number], [place] [address] 8114 Mar, [facility] [place] [facility] [address] [id number] [place] [address]- 0758 Mar, [facility] [place] [facility] [address] [id number] [place] [address]- 0520 Mar, [facility] [place] [facility] [address] [facility] [id number] [place] [address] Mar, [facility] [place] [facility] [address] [facility] [id number], [place] [address]- 2009 Feb, [facility] [place] [facility] [address] [id number] [place] [address]- 1619 15 Feb, 2013 [facility] [place] [facility] [address] [id number] [place] [address]- 7364 Jan, [facility] [place] [facility] [address] [id number] [place] [address]- 8664 Jan, [facility] [place] [facility] [address] [id number] [place] [address]- 0050 Jan, [facility] [place] [facility] [address] [id number] [place] [address]- 5309 Jan, [facility] [place] [facility] [address] [id number] [place] [address]- 9560 Jan, [facility] [place] [facility] [address] [id number] [place] [address]- 0942 Jan, [facility] [place] [facility] [address] [id number] [place] [address]- 7925 Jan, [facility] [place] [facility] [address] [id number] [place] [address]- 7802 Jan, [facility] [place] [facility] [address] [id number] [place] [address]- 5858 Jan, [facility] [place] [facility] [address] [id number], [place] [address]- 8232 Jan, [facility] [place] [facility] [address] [id number], [place] [address]- 6421 Dec, [facility] [place] [facility] [address] [id number] [place] [address]- 6179 Nov, [facility] [place] [facility] [address] [id number] [address]192 Nov, [facility] [place] [facility] [address] [id number] [place] [address]- 8036 Nov, [facility] [place] [facility] [id number] [address]- [address]33 Oct, [facility] [id number], [place] [address] 8014 Oct, [facility] [id number], [place] [address]- 3688 August, [facility] [id number], [place] [address]- 7369 Apr, [facility] [id number], [place] [address]- 9120 Apr, [facility] [id number] [place] [address] 4904 Feb, [facility] [id number], [place] [address]- 3479 Feb, [facility] [id number], [place] [address]- 2520 Dec, [facility] [id number], [place] [address]- 6882 Dec, [facility] [id number], [place] [address]- 7814 Oct, [facility] [address] [id number], [place] [address]- 7217 Oct, [facility] [id number], [place] [address]- 0601 Oct, [facility] [address] [id number], [place] [address]- 4360 Jul, IMMUNIZATIONS No Known Immunizations SOCIAL HISTORY [...] one in [facility] 4 years ago
--- OUTSIDE RECORDS SUMMARY | 2018-09-02 14:13 | XMS REPORT ---
Author Author EM SOTO Organization [facility] Address [address] [place] [address] Care Team Providers Care Ios Developer Name Role Phone STRICKLANDSOTO Carias Unavailable PROBLEMS Type Condition ICD9-CM Code GRI71-LE Code Onset Dates Condition Status SNOMED Code Problem Depression with anxiety F41.8 Active 337957315 Problem Gastroesophageal reflux disease, esophagitis presence not specified K21.9 Active 213676323 Problem Chronic pain syndrome G89.4 Active 388678457 Problem ARIAS on CPAP G47.33 Active 62946129 Problem Type 2 diabetes mellitus without complication, without long-term current use of insulin E11.9 Active 465568210 Problem Chronic obstructive pulmonary disease, unspecified COPD type J44.9 Active 65414682 Problem Other seasonal allergic rhinitis J30.2 Active 537097665 Problem Paranoid schizophrenia F20.0 Active 64229496 Problem Morbid obesity due to excess calories E66.01 Active 779785094 Problem Peripheral edema R60.9 Active 013227302 Problem Parkinsonian tremor G20 Active 977724874 Problem Hypothyroidism, unspecified type E03.9 Active 62350572 Problem History of lupus Z87.39 Active 327705911 Problem OAB (overactive bladder) N32.81 Active 021589125 ALLERGIES Unknown Allergies SOCIAL HISTORY No smoking Hx information available PLAN OF CARE VITAL SIGNS MEDICATIONS Unknown Medications RESULTS No Results PROCEDURES No Known procedures IMMUNIZATIONS No Known Immunizations
--- OUTSIDE RECORDS SUMMARY | 2018-09-02 14:13 | XMS REPORT ---
Author Author SOTO STRICKLAND Organization [facility] Address [address] [place] [address] Care Team Providers Care Retort Operator Name Role Phone STRICKLANDSOTO Carias Unavailable PROBLEMS Type Condition ICD9-CM Code NEP92-IX Code Onset Dates Condition Status SNOMED Code Problem Type 2 diabetes mellitus without complication, without long-term current use of insulin E11.9 Active 875530049 Problem OAB (overactive bladder) N32.81 Active 332657243 Problem History of lupus Z87.39 Active 847882084 Problem Other elevated white blood cell (WBC) count D72.828 Active 559347459 Problem Primary insomnia F51.01 Active 0164000 Problem Gastroesophageal reflux disease without esophagitis K21.9 Active 528550986 Problem ARIAS on CPAP G47.33 Active 49781923 Problem Schizoaffective disorder, depressive type F25.1 Active 22349769 Problem Seasonal allergic rhinitis due to other allergic trigger J30.89 Active 949199882 Problem Chronic obstructive pulmonary disease, unspecified COPD type J44.9 Active 03603521 Problem Morbid obesity due to excess calories E66.01 Active 941173939 Problem Hypothyroidism, unspecified type E03.9 Active 67013119 Problem Peripheral edema R60.9 Active 963334384 Problem Depression with anxiety F41.8 Active 504055353 Problem Paranoid schizophrenia F20.0 Active 72204456 Problem Chronic pain syndrome G89.4 Active 954131569 Problem Parkinsonian tremor G20 Active 262631968 ALLERGIES Unknown Allergies SOCIAL HISTORY No smoking Hx information available PLAN OF CARE VITAL SIGNS MEDICATIONS Medication Instructions Dosage Frequency Start Date End Date Duration Status Januvia 25 MG Orally Once a day 2 tablets 24h Mar, 90 days Active RESULTS No Results PROCEDURES No Known procedures IMMUNIZATIONS No Known Immunizations
--- OUTSIDE RECORDS SUMMARY | 2018-09-02 14:13 | XMS REPORT ---
Author Author SOTO STRICKLAND Organization [employer] Address Unknown Phone Unavailable Care Team Providers Care Informatics Manager Name Role Phone SOTO STRICKLAND CP Unavailable [...] Start Date End Date Status Dosage Spironolactone [facility] [address]-32 50 mg Orally Once a day 1 tablet Results No Known Results Summary Purpose [employer] Submission
--- OUTSIDE RECORDS SUMMARY | 2018-09-02 14:14 | XMS REPORT ---
Author Author STRICKLANDSOTO Carias Organization [facility] Address [address] [place] [address] Care Team Providers Care Poising Inspector Name Role Phone SOTO STRICKLAND Unavailable PROBLEMS Type Condition ICD9-CM Code RHK26-CG Code Onset Dates Condition Status SNOMED Code Problem Other seasonal allergic rhinitis J30.2 Active 640857071 Problem Gastroesophageal reflux disease, esophagitis presence not specified K21.9 Active 955979096 Problem Tobacco abuse Z72.0 Active 236534034 Problem Seasonal allergic rhinitis due to pollen J30.1 Active 93672132 Problem History of lupus Z87.39 Active 789870444 Problem COPD exacerbation J44.1 Active 183303377 Problem OAB (overactive bladder) N32.81 Active 309561933 Problem Morbid obesity due to excess calories E66.01 Active 140051154 Problem Dyslipidemia E78.5 Active 235160661 Problem Migraine without aura and without status migrainosus, not intractable G43.009 Active 667447784 Problem Hypothyroidism (acquired) E03.9 Active 688336214 Problem Essential hypertension I10 Active 43019599 Problem Type 2 diabetes mellitus without complication, without long-term current use of insulin E11.9 Active 666531956 Problem Gastroesophageal reflux disease without esophagitis K21.9 Active 315407899 Problem Chronic pain syndrome G89.4 Active 628209885 Problem Paranoid schizophrenia F20.0 Active 29349171 Problem Primary insomnia F51.01 Active 1407617 Problem DM neuro manif type II E11.49 Active 11247660 Problem Depression with anxiety F41.8 Active 984291802 Problem Seasonal allergic rhinitis due to other allergic trigger J30.89 Active 417487975 Problem Menopausal syndrome (hot flashes) N95.1 Active 328085127 Problem Chronic obstructive pulmonary disease, unspecified COPD type J44.9 Active 55613558 Problem Schizoaffective disorder, depressive type F25.1 Active 36289607 Problem Other allergic rhinitis J30.89 Active 431702613 ALLERGIES No Information ENCOUNTERS Encounter Location Date Diagnosis [facility] [id number] [address] Nov, [facility] [id number] [place] [address] 08305- 4896 Oct, [facility] [id number] [place] [address] 00596- 3143 Oct, [facility] [id number] [place] [address] 32444- 7685 Oct, [facility] [id number] [place] [address] 83702- 1110 Sep, Paranoid schizophrenia F20.0 [facility] [id number] [place] [address] 63795- 1383 Sep, Paranoid schizophrenia F20.0 and BMI 45.0-49.9, adult Z68.42 [facility] [id number] [place] [address] 53082- 5201 Sep, Schizoaffective disorder, depressive type F25.1 [facility] [id number] [place] [address] 23204- 5461 Sep, [facility] [id number] [place] [address] 73104- 5136 Sep, Paranoid schizophrenia F20.0 [facility] [id number] [place] [address] 43521- 6060 Sep, [facility] [id number] [place] [address] 69094- 9517 Sep, Hypothyroidism (acquired) E03.9 [facility] [id number] [place] [address] 89359- 2911 Sep, [facility] [id number] [place] [address] 26158- 5418 August, Schizoaffective disorder, depressive type F25.1 [facility] [id number] [place] [address] 36437- 0783 August, [facility] [address] 01120- 9024 August, [facility] [id number] [place] [address] 68535- 7504 August, [facility] [address] 24140- 3368 August, Paranoid schizophrenia F20.0 [facility] [id number] [place] [address] 71670- 9154 August, History of lupus Z87.39 and Chronic pain syndrome G89.4 [place] [address] 94178- 9851 August, [facility] [address] 29259 -3997 August, Seasonal allergic rhinitis, unspecified trigger J30.2 and BMI 45.0-49.9, adult Z68.42 [place] [address] 13787- 8555 Jul, Schizoaffective disorder, depressive type F25.1 [place] [id number] [place] [address] 28346- 5223 Jul, [place] [address] 10129- 0290 Jul, Hypothyroidism (acquired) E03.9 [place] [id number] [place] [address] 29305- 2628 Jul, Chronic obstructive pulmonary disease, unspecified COPD type J44.9 and Type 2 diabetes mellitus without complication, without long-term current use of insulin E11.9 [place] [id number] [place] [address] 02995- 8578 Jul, Paranoid schizophrenia F20.0 [place] [address] 83032- 3981 Jun, Hypothyroidism (acquired) E03.9 and Seasonal allergic rhinitis due to pollen J30.1 [facility] [address] 76788 -6095 Jun, Shortness of breath at rest R06.02 ; COPD exacerbation J44.1 and BMI 45.0-49.9, adult Z68.42 [facility] [address] 42295- 8796 Jun, [facility] [address] 47880- 8104 Jun, Paranoid schizophrenia F20.0 ; Depression with anxiety F41.8 and BMI 45.0-49.9, adult Z68.42 [facility] [address] 98112- 0845 20 Jun, 2017 Schizoaffective disorder, depressive type F25.1 [facility] [address] [id number] Jun, Dental caries K02.9 [facility] [address] 19939- 6190 Jun, Paranoid schizophrenia F20.0 [facility] [address] 06215- 2364 May, Migraine without aura and without status migrainosus, not intractable G43.009 ; DM neuro manif type II E11.49 and Type 2 diabetes mellitus without complication, without long-term current use of insulin E11.9 [facility] [address] 91310- 1350 May, Migraine without aura and without status migrainosus, not intractable G43.009 [facility] [address] 41350- 0104 May, Depression with anxiety F41.8 [facility] [address] [id number] May, [facility] [address] [address] 7439 May, [place] [address] [place] [address] 15723- 9272 May, [facility] [address] [place] [address] 74891- 9191 May, Hypothyroidism (acquired) E03.9 [place] [address] [place] [address] 39060- 7720 May, Paranoid schizophrenia F20.0 [place] [id number] [place] [address] 75498- 6022 May, Type 2 diabetes mellitus without complication, [...] N32.81 and Controlled substance agreement signed Z79.899 [place] [address] [place] [address] 82944- 4365 May, Controlled substance agreement signed Z79.899 [place] [address] [address] Apr, [facility] [address] [place] [address] [id number] Apr, Dental examination Z01.20 [place] [address] [place] [address] 11399- 2665 Apr, Paranoid schizophrenia F20.0 [place] [id number] [place] [address] 33781- 9800 Apr, Hypertension, unspecified type I10 [facility] [id number] [place] [address] 58989- 1636 Apr, Paranoid schizophrenia F20.0 [facility] [id number] [place] [address] 62757- 4303 Apr, [facility] [id number] [place] [address] 74008- 4804 Apr, Tobacco abuse Z72.0 [place] [id number] [place] [address] 84907- 2087 Apr, [facility] [id number] [place] [address] 96520- 7425 Mar, [place] [id number] [place] [address] 50147- 1159 Mar, Paranoid schizophrenia F20.0 and BMI 45.0-49.9, adult Z68.42 [place] [id number] [place] [address] 03506- 4481 Mar, Schizoaffective disorder, depressive type F25.1 [place] [id number] [place] [address] 20672- 3277 Mar, [facility] [id number] [place] [address] 63860- 1005 Mar, Hypothyroidism, unspecified type E03.9 [facility] [id number] [place] [address] 80356- 1808 Mar, Schizoaffective disorder, depressive type F25.1 [facility] [address] [place] [address] 63939 -7334 Feb, Gastroenteritis K52.9 and BMI 45.0-49.9, adult Z68.42 [facility] [id number] [place] [address] 97611- 6245 Feb, [facility] [address] 36876- 2203 Feb, [place] [address] 67928- 3621 Feb, [place] [address] 36353- 2555 Feb, [place] [address] 34436- 3420 Feb, Paranoid schizophrenia F20.[address] 15900- 8439 Feb, Gastroesophageal reflux disease without esophagitis K21.9 ; Other seasonal allergic rhinitis J30.2 ; Other allergic rhinitis J30.89 ; Tobacco abuse Z72.0 and BMI 40.0-44.9, adult Z68.[address] 25558- 3433 Feb, Onychomycosis B35.1 ; Callus of foot L84 and DM neuro manif type II E11.49 [place] [address] 71933- 7254 Jan, Chronic allergic rhinitis J30.9 [place] [address] 66546- 6225 Jan, [place] [address] 19606- 3936 Jan, Schizoaffective disorder, depressive type F25.1 [place] [address] 77424- 1456 Jan, [facility] [address] 71005 -9123 Jan, Sore throat J02.9 and Seasonal allergic rhinitis due to other allergic trigger J30.89 [place] [address] 29516- 5379 Jan, [facility] [id number] [place] [address] 98712- 5898 Jan, [facility] [id number] [place] [address] 50472 -7618 Jan, Chronic allergic rhinitis J30.9 [facility] [id number] [place] [address] 47824- 9103 Dec, Paranoid schizophrenia F20.0 ; Primary insomnia F51.01 and Schizoaffective disorder, depressive type F25.1 [facility] [id number] [place] [address] 26179- 0787 Dec, Chronic pain syndrome G89.4 ; Cervicalgia of occipito- atlanto-axial region M54.2 ; Menopausal syndrome (hot flashes) N95.1 and Encounter for immunization Z23 [facility] [id number] [place] [address] 02579- 9091 14 Dec, 2016 [facility] [id number] [place] [address] 31053- 5063 Dec, [facility] [id number] [place] [address] 97744- 1097 Dec, Paranoid schizophrenia F20.0 [facility] [id number] [place] [address] 75710- 1466 Dec, Schizoaffective disorder, depressive type F25.1 [facility] [id number] [place] [address] 82862- 1360 Nov, Hypothyroidism, unspecified type E03.9 [facility] [id number] [place] [address] 82084 -2438 Nov, Acute seasonal allergic rhinitis due to other allergen J30.89 [facility] [id number] [place] [address] 69436- 9701 Nov, [facility] [id number] [place] [address] 45800- 3826 Nov, Hypothyroidism, unspecified type E03.9 and Other elevated white blood cell (WBC) count D72.828 [place] [address] [place] [address] 89700- 6660 Nov, Schizoaffective disorder, depressive type F25.1 [place] [address] [place] [address] 84381- 1810 Nov, Paranoid schizophrenia F20.0 [place] [id number] [place] [address] 49197- 2042 Nov, Type 2 diabetes mellitus without complication, without long- term current use of insulin E11.9 ; Morbid obesity due to excess calories E66.01 and Chronic pain syndrome G89.4 [place] [id number] [place] [address] 85104- 0528 Oct, Paranoid schizophrenia F20.0 [place] [id number] [place] [address] 41126- 0134 Oct, [place] [id number] [place] [address] 38269- 1317 Oct, Schizoaffective disorder, depressive type F25.1 [place] [address] [place] [address] 82738- 8952 Oct, Hypothyroidism, unspecified type E03.9 and Other elevated white blood cell (WBC) count D72.828 [place] [id number] [place] [address] 08535- 2718 Oct, Morbid obesity due to excess calories E66.01 ; Chronic obstructive pulmonary disease, unspecified COPD type J44.9 ; History of lupus Z87.39 ; Hypothyroidism, unspecified type E03.9 ; Gastroesophageal reflux disease without esophagitis K21.9 ; Primary insomnia F51.01 and Chronic pain syndrome G89.4 [place] [address] [place] [address] 65426- 1482 Sep, [place] [address], [place] [address]- 6664 29 Sep, 2016 [facility] [address], [place] [address]- 4756 Sep, [facility] [address], [place] [address]- 8747 Sep, Paranoid schizophrenia F20.0 [facility] [id number] [place] [address] 66934- 2054 Sep, [facility] [id number] [place] [address] 81282- 2224 Sep, Paranoid schizophrenia F20.0 [facility] [address] [place] [address] 02000- 7724 Sep, [facility] [address] [place] [address] 39761- 9457 August, Paranoid schizophrenia F20.0 [facility] [address], [place] [address]- 4677 Jul, [facility] [address] [place] [address] 76908- 8524 Jul, Type 2 diabetes mellitus without complication, without long- term current use of insulin E11.9 ; Morbid obesity due to excess calories E66.01 ; Depression with anxiety F41.8 ; Hypothyroidism, unspecified type E03.9 ; Seasonal allergic rhinitis due to other allergic trigger J30.89 ; Pain, dental K08.89 and Gastroesophageal reflux disease without esophagitis K21.9 [facility] [id number] [id number] Jul, Dental examination Z01.20 [facility] [address] [place] [address] 19718- 7065 07 Jul, 2016 Paranoid schizophrenia F20.0 [facility] [address], [place] [address]- 4879 Jun, Paranoid schizophrenia F20.0 and Depression with anxiety F41.8 [place] [id number] [place] [address] 04817- 8841 10 Jun, 2016 Paranoid schizophrenia F20.0 and Depression with anxiety F41.8 [place] [id number] [place] [address] 63486- 9232 09 Jun, 2016 [id number] [place] [address] 27529- 6870 Jun, [facility] [place] [id number] [place] [address] 12615 -1292 Jun, Seasonal allergic rhinitis due to other allergic trigger J30.89 [facility] [place] [id number] [place] [address] 12769 -4545 May, Sore throat J02.9 ; Other viral agents as the cause of diseases classified elsewhere B97.89 and Acute upper respiratory infection, unspecified J06.9 [place] [id number] [place] [address] 40211- 7978 May, Paranoid schizophrenia F20.0 and Depression with anxiety F41.8 [place] [id number] [place] [address] 66233- 9275 Apr, Other seasonal allergic rhinitis J30.2 [place] [id number] [place] [address] 69517- 6466 Apr, Paranoid schizophrenia F20.0 and Depression with anxiety F41.8 [facility] [id number] [place] [address] 69438 -2592 Apr, Bronchitis J40 and Sore throat J02.[address] 15389- 3915 Apr, Type 2 diabetes mellitus without complication, without long- term current use of insulin E11.9 [facility] [id number] [place] [address] 93376 -7918 Apr, Bronchitis J40 [place] [id number] [place] [address] 74469- 0204 Apr, [place] [id number] [place] [address] 05172- 9002 Apr, [place] [id number] [place] [address] 25687- 3077 Mar, Type 2 diabetes mellitus without complication, [...] Other seasonal allergic rhinitis J30.2 [place] [id number] [place] [address] 84298- 1657 Mar, Paranoid schizophrenia F20.0 and Depression with anxiety F41.8 [place] [id number] [place] [address] 07397- 9327 Feb, [place] [id number] [place] [address] 52760- 4084 Feb, [place] [id number] [place] [address] 35614- 5162 Feb, [place] [id number] [place] [address] 92575- 5478 Feb, [place] [id number] [place] [address] 78720- 8054 Feb, Type 2 diabetes mellitus without complication, without long- term current use of insulin E11.9 ; ARIAS on CPAP G47.33 and Preoperative evaluation to rule out surgical contraindication Z01.818 [place] [id number] [place] [address] 59325- 7198 09 Feb, 2016 Paranoid schizophrenia F20.0 and Depression with anxiety F41.8 [place] [id number] [address]- 5610 Jan, [facility] [address] [facility] [id number] [place] [address] 45888- 5177 Jan, Paranoid schizophrenia F20.0 and Depression with anxiety F41.8 [facility] [id number] [address]- 0899 17 Jan, 2016 [facility] [address] [facility] [id number] [place] [address] 30884- 6632 14 Jan, 2016 Muscle strain T14.8 [facility] [address] [facility] [id number] [place] [address] 45165- 7110 10 Jan, 2016 Paranoid schizophrenia F20.0 [facility] [id number] [address]- 0663 Jan, [facility] [id number] [place] [address] 09676- 4200 Jan, Paranoid schizophrenia F20.0 and Depression with anxiety F41.8 [facility] [id number] [address]- 2972 Jan, [facility] [id number] [place] [address] 61356- 8469 Jan, [facility] [id number] [address]- 2070 28 Dec, 2015 [facility] [address] [facility] [id number] [address]- 4284 23 Dec, 2015 Paranoid schizophrenia F20.0 [facility] [address] [facility] [id number] [address]- 2190 16 Dec, 2015 Paranoid schizophrenia F20.0 and Depression with anxiety F41.8 [facility] [address] [facility] [id number], [place] [address]- 3311 Nov, [facility] [id number] [address]- 1640 Nov, Paranoid schizophrenia F20.0 [place] [address], [place] [address]- 8349 Nov, Paranoid schizophrenia F20.0 and Depression with anxiety F41.8 [place] [id number] [place] [address] 98749- 0031 Nov, Type 2 diabetes mellitus without complication, without long- term current use of insulin E11.9 ; Paranoid schizophrenia F20.0 ; Chronic obstructive pulmonary disease, unspecified COPD type J44.9 ; Morbid obesity due to excess calories E66.01 and Parkinsonian tremor G20 [place] [id number] [place] [address] 18141- 6603 Nov, [place] [id number] [place] [address] 31841- 1148 Oct, Paranoid schizophrenia F20.0 [place] [id number] [place] [address] 00358- 1371 Oct, Paranoid schizophrenia F20.0 [place] [id number] [place] [address] 14980- 6987 Oct, Paranoid schizophrenia F20.0 and Depression with anxiety F41.8 [place] [id number] [place] [address] 98668- 5148 Oct, [place] [id number] [place] [address] 12917- 6429 Oct, Paranoid schizophrenia F20.0 and Depression with anxiety F41.8 [place] [id number] [place] [address] 38003- 1863 Oct, Nasal sore J34.89 [place] [id number] [place] [address] 96960- 9611 Oct, Type 2 diabetes mellitus without complication, without long- term current use of insulin E11.9 ; Depression with anxiety F41.8 ; Hypothyroidism, unspecified type E03.9 and History of lupus Z87.39 [facility] [id number] [place] [address] 74269- 0704 Oct, [facility] [address] 96825- 4776 Oct, Type 2 diabetes mellitus without complication, [...] Z87.39 [facility] [id number] [place] [address] 59682- 7346 Feb, [facility] [address] 90238- 2492 Jan, [facility] [id number] [place] [address] 76511- 9197 Jan, [facility] [id number] [place] [address] [id number] Jan, [facility] [id number] [place] [address] [phone] Dec, [facility] [id number] [place] [address] [id number]- [phone] Nov, [facility] [id number] [place] [address] [id number]- [phone] Nov, [facility] [id number] [place] [address] [phone]- [phone] Oct, [facility] [id number] [place] [address] [phone] Oct, [facility] [address] [place] [address] 17 Oct, 2014 [facility] [address] [facility] [id number] [place] [address] Sep, Allergic rhinitis 477.9 [facility] [address] [facility] [id number] [place] [address] 11 Sep, 2014 Rhinitis, allergic 477.9 [facility] [id number] [place] [address], [place] [address] Sep, Rhinitis, allergic 477.9 [facility] [id number] [address] Sep, [facility] [address], [place] [address] August, [facility] [address] [place] [address] August, [facility] [address] [address] August, [facility] [place] [facility] [address] [place] [address] Jul, [facility] [address], [place] [address] Jul, [facility] [place] [facility] [address], [place] [address] Jul, [facility] [place] [facility] [address], [place] [address] 16 Jun, 2014 [facility] [place] [facility] [id number] [address] Jun, [facility] [place] [facility] [id number] [address] Jun, [facility] [place] [facility] [id number] [address] Jun, [facility] [place] [facility] [address] [address] Jun, 2014 [facility] [place] [facility] [address] [id number] [place] [address] Jun, 2014 [facility] [place] [facility] [address] [id number] [place] [address] Jun, 2014 [facility] [place] [facility] [address] [id number] [place] [address]- 6936 Jun, 2014 [facility] [place] [facility] [address] [id number] [place] [address] May, 2014 [facility] [place] [facility] [address] [id number] [place] [address]- 3356 May, 2014 [facility] [place] [facility] [address] [id number] [place] [address]- 6970 May, 2014 [facility] [place] [facility] [address] [id number] [place] [address]- [address]277 May, 2014 [facility] [place] [facility] [address] [id number] [place] [address]- 3328 Apr, [facility] [place] [facility] [address] [id number] [place] [address]- 4853 Mar, [facility] [place] [facility] [address] [id number] [place] [address]- 4880 Mar, [facility] [place] [facility] [address] [id number] [place] [address]- 6155 Mar, [facility] [place] [facility] [address] [id number] [place] [address]- 7250 Mar, [facility] [place] [facility] [address] [id number] [place] [address] Mar, [facility] [place] [facility] [address] [id number] [place] [address] Mar, [facility] [place] [facility] [address] [id number] [place] [address] Mar, [facility] [place] [facility] [address] [id number] [place] [address]- 1551 Mar, [facility] [place] [facility] [address] [id number] [place] [address] Mar, [facility] [place] [facility] [address] [id number] [place] [address]- 8206 Feb, [facility] [place] [facility] [address] [id number] [place] [address]- 7094 Feb, [facility] [place] [facility] [address] [id number] [place] [address]- 2228 Feb, [facility] [place] [facility] [address] [id number] [place] [address] 3220 Feb, [facility] [place] [facility] [address] [id number] [place] [address]- 0089 Feb, [facility] [place] [facility] [address] [id number] [place] [address]- 4019 Feb, [facility] [place] [facility] [address] [id number] [place] [address]- 1630 Feb, [facility] [place] [facility] [address] [id number] [place] [address]- 3101 Feb, [facility] [place] [facility] [address] [id number] [place] [address]- 1779 Jan, [facility] [place] [facility] [address] [id number] [place] [address]- 5970 Jan, [facility] [place] [facility] [address] [id number] [place] [address]- 1133 Jan, [facility] [place] [facility] [address] [id number] [place] [address]- 1670 16 Jan, 2014 [facility] [place] [facility] [address] [id number] [place] [address] 15 Jan, 2014 [facility] [place] [facility] [address] [id number] [place] [address]- 7413 15 Jan, 2014 [facility] [place] [facility] [address] [id number] [place] [address]- 4866 14 Jan, 2014 [facility] [place] [facility] [address] [id number] [place] [address]- 7306 14 Jan, 2014 [facility] [place] [facility] [address] [id number] [place] [address]- 0180 14 Jan, 2014 [facility] [place] [facility] [address] [id number] [place] [address]- 9915 14 Jan, 2014 [facility] [place] [facility] [address] [id number] [place] [address]- 5975 18 Dec, 2013 [facility] [place] [facility] [address] [id number] [place] [address]- 5727 18 Dec, 2013 [facility] [place] [facility] [address] [id number] [place] [address]- 1233 10 Dec, 2013 [facility] [place] [facility] [address] [id number] [place] [address]- 9005 10 Dec, 2013 [facility] [place] [facility] [address] [id number] [place] [address]- 0281 Nov, [facility] [place] [facility] [address] [id number] [place] [address]- 6979 Nov, [facility] [place] [facility] [address] [id number] [place] [address]- 5159 Nov, [facility] [place] [facility] [address] [id number] [place] [address]- 2650 Nov, [facility] [place] [facility] [address] [id number] [place] [address]- 1503 Nov, [facility] [place] [facility] [address] [id number] [place] [address]- 3719 Oct, [facility] [place] [facility] [address] [id number] [place] [address]- 1574 Oct, [facility] [place] [facility] [address] [id number] [place] [address]- 0478 Oct, [facility] [place] [facility] [address] [id number] [place] [address]- 4290 Oct, [facility] [place] [facility] [address] [id number] [place] [address]- 4689 Sep, [facility] [place] [facility] [address] [id number] [place] [address]- 2698 Sep, [facility] [place] [facility] [address] [id number] [place] [address]- 9050 Sep, [facility] [place] [facility] [address] [id number] [place] [address]- 8359 Sep, [facility] [place] [facility] [address] [id number] [place] [address]- 5318 Sep, [facility] [place] [facility] [address] [id number] [place] [address]- 8202 Sep, [facility] [place] [facility] [address] [id number] [place] [address]- 3576 Sep, [facility] [place] [facility] [address] [id number] [place] [address] 1974 Sep, [facility] [place] [facility] [address] [id number] [place] [address]- 4463 August, [facility] [place] [facility] [address] [id number] [place] [address]- 1499 August, [facility] [place] [facility] [address] [id number] [place] [address]- 6184 August, [facility] [place] [facility] [address] [id number] [place] [address]- 4655 August, [facility] [place] [facility] [address] [id number] [place] [address]- 9745 August, [facility] [place] [facility] [address] [id number] [place] [address]- 5071 August, [facility] [place] [facility] [address] [id number] [place] [address]- 8178 August, [facility] [place] [facility] [address] [id number] [place] [address]- 1179 Jul, [facility] [place] [facility] [address] [id number] [place] [address]- 6016 Jul, [facility] [place] [facility] [address] [id number] [place] [address]- 0801 Jul, [facility] [place] [facility] [address] [id number] [place] [address]- 5200 Jul, [facility] [place] [facility] [address] [id number] [place] [address]- 5416 Jul, [facility] [place] [facility] [address] [id number] [place] [address]- 4707 Jul, [facility] [place] [facility] [address] [id number] [place] [address]- 7201 Jul, [facility] [place] [facility] [address] [id number] [place] [address]- 9442 Jul, [facility] [place] [facility] [address] [id number] [place] [address]- 4951 Jul, [facility] [place] [facility] [address] [id number] [place] [address]- 4692 Jul, [facility] [place] [facility] [address] [id number] [place] [address]- 7535 Jul, [facility] [place] [facility] [address] [id number] [place] [address]- 2379 Jul, [facility] [place] [facility] [address] [id number] [place] [address] Jun, [facility] [place] [facility] [address] [id number] [place] [address] Jun, [facility] [place] [facility] [address] [id number] [place] [address]- 6597 Jun, [facility] [place] [facility] [address] [id number] [place] [address]- 8610 Jun, [facility] [place] [facility] [address] [id number] [place] [address]- 7648 Jun, [facility] [place] [facility] [address] [id number] [place] [address]- 3313 May, [facility] [place] [facility] [address] [id number] [place] [address]- 7959 May, [facility] [place] [facility] [address] [id number] [place] [address]- 3432 May, [facility] [place] [facility] [address] [id number] [place] [address]- 8867 May, [facility] [place] [facility] [address] [id number] [place] [address]- 3871 May, [facility] [place] [facility] [address] [id number] [place] [address]- 6010 May, [facility] [place] [facility] [address] [id number] [place] [address]- 6080 May, [facility] [place] [facility] [address] [id number] [place] [address]- 4814 May, [facility] [place] [facility] [address] [id number] [place] [address]- 6640 Mar, [facility] [place] [facility] [address] [id number] [place] [address]- 3978 Mar, [facility] [place] [facility] [address] [id number] [place] [address] Mar, [facility] [place] [facility] [address] [id number] [place] [address] Mar, [facility] [place] [facility] [address] [id number] [place] [address]- 3377 Mar, [facility] [place] [facility] [address] [id number] [place] [address]- 5100 Mar, [facility] [place] [facility] [address] [id number] [place] [address]- 7047 Feb, [facility] [place] [facility] [address] [id number] [place] [address]- 0547 Feb, [facility] [place] [facility] [address] [id number] [place] [address]- 2718 Jan, [facility] [place] [facility] [address] [id number] [place] [address]- 1519 Jan, [facility] [place] [facility] [address] [id number] [place] [address]- 7864 Jan, [facility] [place] [facility] [address] [id number] [place] [address]- 6755 Jan, [facility] [place] [facility] [address] [id number] [place] [address]- 3967 Jan, [facility] [place] [facility] [address] [id number] [place] [address]- 4592 Jan, [facility] [place] [facility] [address] [id number], [place] [address]- 3334 Jan, [facility] [place] [facility] [address] [id number], [place] [address]- 3449 Jan, [facility] [place] [facility] [address] [id number], [place] [address]- 6142 08 Jan, 2013 [facility] [place] [facility] [address] [id number] [place] [address]- 4386 Jan, [facility] [place] [facility] [address] [id number], [place] [address]- 1666 16 Dec, 2012 [facility] [place] [facility] [address] [id number] [place] [address]- 6738 Nov, [facility] [place] [facility] [address] [id number], [place] [address]- 4306 Nov, [facility] [address], [place] [address]- 6108 Nov, [facility] [address], [place] [address]- 8375 Oct, [facility] [address], [place] [address]- 8236 Oct, [facility] [address], [place] [address]- 5[address] August, [facility] [address], [place] [address]- 7127 Apr, [facility] [address], [place] [address]- 3314 Apr, [facility] [address], [place] [address]- 3371 Feb, [facility] [address], [place] [address]- 6809 Feb, [facility] [address] [address] Dec, [facility] [address], [place] [address]- 1076 Dec, [facility] [address], [place] [address]- 9930 Oct, [facility] [id number] [address]894 Oct, [facility] [address], [place] [address]- 9846 Oct, [facility] [address], [place] [address]- 8[address] Jul, IMMUNIZATIONS No Known Immunizations SOCIAL HISTORY Never Assessed REASON FOR VISIT Lab Orders PLAN OF CARE VITAL SIGNS MEDICATIONS Medication [...]
--- OUTSIDE RECORDS SUMMARY | 2018-09-02 14:14 | XMS REPORT ---
Author Author UMESH PINEDA Organization [employer] Address Unknown Phone Unavailable Care Team Providers Care Cashier Self Service Gasoline Name Role Phone UMESH PINEDA CP Unavailable [...]
--- OUTSIDE RECORDS SUMMARY | 2018-09-02 14:14 | XMS REPORT ---
Author Author SOTO STRICKLAND Organization [employer] Address Unknown Phone Unavailable Care Team Providers Care Cruise Director Name Role Phone SOTO STRICKLAND CP Unavailable Allergies No Known Allergies Problems Problem Type Condition Code Onset Dates Condition Status Problem OAB (overactive bladder) N32.81 Active Problem Chronic pain syndrome G89.4 Active Problem Depression with anxiety F41.8 Active Problem Type 2 diabetes mellitus without complication, without long-term current use of insulin E11.9 Active Problem Paranoid schizophrenia F20.0 Active Problem ARIAS on CPAP G47.33 Active Problem Other seasonal allergic rhinitis J30.2 Active Problem Gastroesophageal reflux disease, esophagitis presence not specified K21.9 Active Problem Morbid obesity due to excess calories E66.01 Active Problem Chronic obstructive pulmonary disease, unspecified COPD type J44.9 Active Problem History of lupus Z87.39 Active Problem Peripheral edema R60.9 Active Problem Parkinsonian tremor G20 Active Problem Hypothyroidism, unspecified type E03.9 Active Medications Medication Code System Code Instructions Start Date End Date Status Dosage Ventolin HFA [facility] [id number] 108 (90 Base) MCG/ACT Inhalation every 4 hrs Mar 24, 2016 2 puffs as needed Results No Known Results Summary Purpose [employer] Submission
[2018-09-02] MEDS ORDERED: ETOMIDATE IV SOLN 20 MG/10 ML VIAL IV ONE (14:15)
--- OUTSIDE RECORDS SUMMARY | 2018-09-02 14:15 | XMS REPORT ---
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 Lead Name Role Phone UMESH PINEDA Unavailable PROBLEMS Type Condition ICD9-CM Code [id number] Code Onset Dates Condition Status SNOMED Code Problem Other seasonal allergic rhinitis J30.2 Active 165201337 Problem Gastroesophageal reflux disease, esophagitis presence not specified K21.9 Active 703674391 Problem Tobacco abuse Z72.0 Active 416371687 Problem Seasonal allergic rhinitis due to pollen J30.1 Active 94792498 Problem History of lupus Z87.39 Active 713761080 Problem COPD exacerbation J44.1 Active 118528767 Problem OAB (overactive bladder) N32.81 Active 651935180 Problem Morbid obesity due to excess calories E66.01 Active 233137343 Problem Dyslipidemia E78.5 Active 483893082 Problem Migraine without aura and without status migrainosus, not intractable G43.009 Active 319858804 Problem Hypothyroidism (acquired) E03.9 Active 062448818 Problem Essential hypertension I10 Active 50037261 Problem Type 2 diabetes mellitus without complication, without long-term current use of insulin E11.9 Active 640299732 Problem Gastroesophageal reflux disease without esophagitis K21.9 Active 371002136 Problem Chronic pain syndrome G89.4 Active 790098887 Problem Paranoid schizophrenia F20.0 Active 03820448 Problem Primary insomnia F51.01 Active 5968314 Problem DM neuro manif type II E11.49 Active 45225009 Problem Depression with anxiety F41.8 Active 295008884 Problem Seasonal allergic rhinitis due to other allergic trigger J30.89 Active 860736520 Problem Menopausal syndrome (hot flashes) N95.1 Active 638382591 Problem Chronic obstructive pulmonary disease, unspecified COPD type J44.9 Active 75337645 Problem Schizoaffective disorder, depressive type F25.1 Active 43284783 Problem Other allergic rhinitis J30.89 Active 560333067 ALLERGIES No Information ENCOUNTERS Encounter Location Date Diagnosis [facility] [address] [address] Nov, [facility] [id number] [place] [address] 45356- 2544 Oct, [facility] [id number] [place] [address] 15109- 0629 Sep, Schizoaffective disorder, depressive type F25.1 [facility] [id number] [place] [address] 67099- 8040 Sep, [facility] [id number] [place] [address] 18286- 8139 Sep, Paranoid schizophrenia F20.0 [facility] [id number] [place] [address] 45800- 8287 Sep, [facility] [id number] [place] [address] 05668- 1004 Sep, Hypothyroidism (acquired) E03.9 [facility] [id number] [place] [address] 93796- 3321 Sep, [facility] [id number] [place] [address] 47138- 5984 August, Schizoaffective disorder, depressive type F25.1 [facility] [id number] [address] 5[address] August, [facility] [id number] [place] [address] 01852- 1900 August, [facility] [id number] [place] [address] 08511- 2739 August, [facility] [id number] [place] [address] 97149- 7207 August, Paranoid schizophrenia F20.0 [facility] [id number] [place] [address] 11804- 9705 August, History of lupus Z87.39 and Chronic pain syndrome G89.4 [place] [address] 35537- 0650 August, [facility] [address] 19674 -6242 August, Seasonal allergic rhinitis, unspecified trigger J30.2 and BMI 45.0-49.9, adult Z68.42 [place] [address] 12783- 1648 Jul, Schizoaffective disorder, depressive type F25.1 [place] [address] 48953- 0037 Jul, [place] [address] 08669- 9170 Jul, Hypothyroidism (acquired) E03.9 [place] [address] 06444- 7294 Jul, Chronic obstructive pulmonary disease, unspecified COPD type J44.9 and Type 2 diabetes mellitus without complication, without long-term current use of insulin E11.9 [place] [address] 76047- 6255 Jul, Paranoid schizophrenia F20.0 [place] [address] 27754- 5365 Jun, Hypothyroidism (acquired) E03.9 and Seasonal allergic rhinitis due to pollen J30.1 [facility] [address] 28356 -0372 Jun, Shortness of breath at rest R06.02 ; COPD exacerbation J44.1 and BMI 45.0-49.9, adult Z68.42 [place] [address] 37992- 4424 Jun, [place] [address] 63158- 1902 Jun, Paranoid schizophrenia F20.0 ; Depression with anxiety F41.8 and BMI 45.0-49.9, adult Z68.42 [facility] [address] [id number]- 5890 Jun, Schizoaffective disorder, depressive type F25.1 [facility] [address] [id number] Jun, Dental caries K02.9 [facility] [address] 67413- 7642 Jun, Paranoid schizophrenia F20.0 [place] [address] 56014- 8499 May, Migraine without aura and without status migrainosus, not intractable G43.009 ; DM neuro manif type II E11.49 and Type 2 diabetes mellitus without complication, without long-term current use of insulin E11.9 [facility] [address] 06367- 7217 May, Migraine without aura and without status migrainosus, not intractable G43.009 [place] [address] 45280- 1224 May, Depression with anxiety F41.8 [facility] [id number] [place] [address] [id number] May, [facility] [address] 17348- 1416 May, [facility] [address] 71405- 7530 May, [place] [address] 08229- 6795 May, Hypothyroidism (acquired) E03.9 [facility] [address] 02678- 1461 May, Paranoid schizophrenia F20.0 [facility] [id number] [place] [address] 16863- 0054 08 May, 2017 Type 2 diabetes mellitus [...] N32.81 and Controlled substance agreement signed Z79.899 [place] [address] 55005- 0529 02 May, 2017 Controlled substance agreement signed Z79.899 [place] [address] 48964- 1560 Apr, [facility] [address] [id number] Apr, Dental examination Z01.20 [place] [id number] [place] [address] 88310- 3359 Apr, Paranoid schizophrenia F20.0 [place] [address] 50924- 9211 Apr, Hypertension, unspecified type I10 [facility] [address] 33627- 7534 Apr, Paranoid schizophrenia F20.0 [place] [address] 24884- 7347 05 Apr, 2017 [place] [address] 76200- 7782 Apr, Tobacco abuse Z72.0 [place] [address] [place] [address] 0472 Apr, [facility] [id number] [place] [address] 35109- 9370 Mar, [facility] [id number] [place] [address] 62793- 9393 Mar, Paranoid schizophrenia F20.0 and BMI 45.0-49.9, adult Z68.42 [facility] [id number] [place] [address] 34169- 5454 Mar, Schizoaffective disorder, depressive type F25.1 [facility] [address] 24164- 5073 Mar, [facility] [id number] [place] [address] 90634- 3014 Mar, Hypothyroidism, unspecified type E03.9 [facility] [id number] [place] [address] 66495- 5019 Mar, Schizoaffective disorder, depressive type F25.1 [facility] [id number] [place] [address] 10440 -2923 Feb, Gastroenteritis K52.9 and BMI 45.0-49.9, adult Z68.42 [facility] [id number] [place] [address] 56434- 9738 Feb, [facility] [id number] [place] [address] 97290- 5702 Feb, [facility] [id number] [place] [address] 60548- 6778 Feb, [facility] [id number] [place] [address] 27035- 4395 16 Feb, 2017 [facility] [id number] [place] [address] 37092- 0890 10 Feb, 2017 Paranoid schizophrenia F20.0 [facility] [address] [place] [address]- 3416 Feb, Gastroesophageal reflux disease without esophagitis K21.9 ; Other seasonal allergic rhinitis J30.2 ; Other allergic rhinitis J30.89 ; Tobacco abuse Z72.0 and BMI 40.0-44.9, adult Z68.41 [place] [id number] [place] [address] 52921- 8258 Feb, Onychomycosis B35.1 ; Callus of foot L84 and DM neuro manif type II E11.49 [place] [id number] [place] [address] 59300- 8939 Jan, Chronic allergic rhinitis J30.9 [place] [address] 62617- 0943 Jan, [place] [address] 48360- 5247 Jan, Schizoaffective disorder, depressive type F25.1 [place] [address] 07779- 5993 Jan, [facility] [address] 24787 -2202 Jan, Sore throat J02.9 and Seasonal allergic rhinitis due to other allergic trigger J30.89 [place] [id number] [place] [address] 74563- 3559 Jan, [facility] [address] 11304- 1228 Jan, [facility] [address] 37794 -4867 Jan, Chronic allergic rhinitis J30.9 [facility] [id number] [place] [address] 09499- 4634 Dec, Paranoid schizophrenia F20.0 ; Primary insomnia F51.01 and Schizoaffective disorder, depressive type F25.1 [place] [address] [place] [address]- 9973 Dec, Chronic pain syndrome G89.4 ; Cervicalgia of occipito- atlanto-axial region M54.2 ; Menopausal syndrome (hot flashes) N95.1 and Encounter for immunization Z23 [facility] [id number] [place] [address] 36608- 9312 14 Dec, 2016 [place] [address] 42498- 5222 Dec, [place] [id number] [place] [address] 95348- 2440 08 Dec, 2016 Paranoid schizophrenia F20.0 [place] [id number] [place] [address] 40097- 8761 Dec, Schizoaffective disorder, depressive type F25.1 [place] [id number] [place] [address] 32885- 6249 Nov, Hypothyroidism, unspecified type E03.9 [facility] [id number] [place] [address] 37564 -4844 Nov, Acute seasonal allergic rhinitis due to other allergen J30.89 [place] [id number] [place] [address] 98228- 7016 Nov, [place] [id number] [place] [address] 64464- 3257 Nov, Hypothyroidism, unspecified type E03.9 and Other elevated white blood cell (WBC) count D72.828 [place] [id number] [place] [address] 20372- 5059 Nov, Schizoaffective disorder, depressive type F25.1 [facility] [id number] [place] [address] 59767- 7591 Nov, Paranoid schizophrenia F20.0 [facility] [id number] [place] [address] 43026- 0008 11 Aug, 2017 Type 2 diabetes mellitus without complication, without long- term current use of insulin E11.9 ; Morbid obesity due to excess calories E66.01 and Chronic pain syndrome G89.4 [place] [id number] [place] [address] 33001- 4009 Oct, Paranoid schizophrenia F20.0 [place] [id number] [place] [address] 21570- 8512 Oct, [place] [id number] [place] [address] 95230- 8526 Oct, Schizoaffective disorder, depressive type F25.1 [place] [address] 31873- 9163 Oct, Hypothyroidism, unspecified type E03.9 and Other elevated white blood cell (WBC) count D72.828 [place] [id number] [place] [address] 47904- 7674 Oct, Morbid obesity due to excess calories E66.01 ; Chronic obstructive pulmonary disease, unspecified COPD type J44.9 ; History of lupus Z87.39 ; Hypothyroidism, unspecified type E03.9 ; Gastroesophageal reflux disease without esophagitis K21.9 ; Primary insomnia F51.01 and Chronic pain syndrome G89.4 [place] [id number] [place] [address] 15932- 2683 Sep, [place] [id number] [place] [address] 74449- 7346 Sep, [place] [id number] [place] [address] 09012- 1319 Sep, [place] [id number] [place] [address] 98316- 8832 Sep, Paranoid schizophrenia F20.0 [place] [id number] [place] [address] 69742- 1398 Sep, [place] [id number] [place] [address] 81221- 0565 Sep, Paranoid schizophrenia F20.0 [facility] [address], [place] [address]- 1445 Sep, [facility] [id number] [place] [address] 86447- 9274 August, Paranoid schizophrenia F20.0 [facility] [address] [place] [address] 90572- 1210 Jul, [facility] [id number] [place] [address] 44531- 6274 Jul, Type 2 diabetes mellitus without complication, without long- term current use of insulin E11.9 ; Morbid obesity due to excess calories E66.01 ; Depression with anxiety F41.8 ; Hypothyroidism, unspecified type E03.9 ; Seasonal allergic rhinitis due to other allergic trigger J30.89 ; Pain, dental K08.89 and Gastroesophageal reflux disease without esophagitis K21.9 [facility] [address] [place] [address] [id number] Jul, Dental examination Z01.20 [place] [address] [place] [address] 43644- 4374 07 Jul, 2016 Paranoid schizophrenia F20.0 [place] [address] [place] [address] 80324- 2251 13 Jun, 2016 Paranoid schizophrenia F20.0 and Depression with anxiety F41.8 [place] [address] [place] [address] 47967- 9056 Jun, Paranoid schizophrenia F20.0 and Depression with anxiety F41.8 [facility] [address], [place] [address]- 8819 Jun, [place] [id number] [place] [address] 09102- 5962 Jun, [facility] [address], [place] [address] -9992 Jun, Seasonal allergic rhinitis due to other allergic trigger J30.89 [facility] [id number] [place] [address] 36881 -2616 25 May, 2016 Sore throat J02.9 ; Other viral agents as the cause of diseases classified elsewhere B97.89 and Acute upper respiratory infection, unspecified J06.9 [place] [id number] [place] [address] 87646- 9133 08 May, 2016 Paranoid schizophrenia F20.0 and Depression with anxiety F41.8 [place] [id number] [place] [address] 51353- 9629 Apr, Other seasonal allergic rhinitis J30.2 [place] [address] 44112- 3936 Apr, Paranoid schizophrenia F20.0 and Depression with anxiety F41.8 [facility] [place] [id number] [place] [address] 83804 -6229 Apr, Bronchitis J40 and Sore throat J02.9 [place] [id number] [place] [address] 95636- 9225 Apr, Type 2 diabetes mellitus without complication, without long- term current use of insulin E11.9 [facility] [place] [id number] [place] [address] 60344 -4264 Apr, Bronchitis J40 [place] [id number] [place] [address] 81724- 8533 Apr, [place] [id number] [place] [address] 12042- 7554 Apr, [place] [id number] [place] [address] 67710- 2143 Mar, Type 2 diabetes mellitus without complication, [...] R60.9 and Other seasonal allergic rhinitis J30.2 [place] [address] 13691- 7780 Mar, Paranoid schizophrenia F20.0 and Depression with anxiety F41.8 [place] [address] 54901- 5810 Feb, [place] [address] 56757- 7234 Feb, [place] [address] 83521- 6099 Feb, [place] [address] 32874- 4153 Feb, [place] [address] 14581- 6533 Feb, Type 2 diabetes mellitus without complication, without long- term current use of insulin E11.9 ; ARIAS on CPAP G47.33 and Preoperative evaluation to rule out surgical contraindication Z01.818 [place] [address] 13281- 5630 Feb, Paranoid schizophrenia F20.0 and Depression with anxiety F41.8 [place] [address] 75711- 6366 Jan, [place] [address] 62706- 7352 Jan, Paranoid schizophrenia F20.0 and Depression with anxiety F41.8 [place] [address] 17582- 4877 Jan, [place] [address] 45939- 2403 Jan, Muscle strain T14.8 [place] [address] [place] [address]- 8865 Jan, Paranoid schizophrenia F20.0 [facility] [id number] [place] [address] 34099- 3567 Jan, [facility] [id number] [place] [address] 31318- 5193 Jan, Paranoid schizophrenia F20.0 and Depression with anxiety F41.8 [facility] [id number] [place] [address] 96466- 7401 Jan, [facility] [id number] [place] [address] 32260- 7109 Jan, [facility] [id number] [place] [address] 95940- 1078 28 Dec, 2015 [facility] [id number] [place] [address] 33706- 4742 23 Dec, 2015 Paranoid schizophrenia F20.0 [facility] [id number] [place] [address] 18611- 9133 16 Dec, 2015 Paranoid schizophrenia F20.0 and Depression with anxiety F41.8 [facility] [id number] [place] [address] 62115- 0672 Nov, [facility] [address] [place] [address] 79807- 7791 Nov, Paranoid schizophrenia F20.0 [facility] [id number] [place] [address] 03077- 6775 Nov, Paranoid schizophrenia F20.0 and Depression with anxiety F41.8 [facility] [address] [address]- 6305 05 Nov, 2015 Type 2 diabetes mellitus without complication, without long- term current use of insulin E11.9 ; Paranoid schizophrenia F20.0 ; Chronic obstructive pulmonary disease, unspecified COPD type J44.9 ; Morbid obesity due to excess calories E66.01 and Parkinsonian tremor G20 [facility] [address] [place] [address] 67017- 0142 Nov, [place] [id number] [place] [address] 97441- 8171 Oct, Paranoid schizophrenia F20.0 [place] [id number] [place] [address] 28416- 3993 Oct, Paranoid schizophrenia F20.0 [place] [id number] [place] [address] 05277- 9791 Oct, Paranoid schizophrenia F20.0 and Depression with anxiety F41.8 [place] [id number] [place] [address] 74040- 5807 Oct, [place] [id number] [place] [address] 82090- 3396 Oct, Paranoid schizophrenia F20.0 and Depression with anxiety F41.8 [place] [id number] [place] [address] 74573- 7245 Oct, Nasal sore J34.89 [place] [id number] [place] [address] 92384- 1539 Oct, Type 2 diabetes mellitus without complication, without long- term current use of insulin E11.9 ; Depression with anxiety F41.8 ; Hypothyroidism, unspecified type E03.9 and History of lupus Z87.39 [place] [address] [place] [address] 39321- 0554 Oct, [place] [address] [place] [address] 49146- 3180 Oct, Type 2 diabetes mellitus without complication, [...] edema R60.9 and History of lupus Z87.39 [facility] [id number] [place] [address] 11212- 5793 Feb, [facility] [id number] [place] [address] 64640- 4637 Jan, [facility] [address] [address]- [address]266 Jan, [facility] [id number] [place] [address] 43429- [phone] Jan, [facility] [id number] [place] [address] [id number]- 3584 Dec, [facility] [id number] [place] [address] 50865- [phone] Nov, [facility] [id number] [place] [address] 46348- 6302 Nov, [facility] [id number] [place] [address] 67623- 3233 Oct, [facility] [id number] [place] [address] 97337- 9217 Oct, [facility] [id number] [place] [address] 73297- 2783 Oct, [facility] [id number] [place] [address] 76202- 6137 Sep, Allergic rhinitis 477.9 [facility] [id number] [place] [address] 91337- 5040 Sep, Rhinitis, allergic 477.9 [facility] [id number] [place] [address] 86026- 8244 Sep, Rhinitis, allergic 477.9 [facility] [id number] [place] [address] 56988- 5556 Sep, [facility] [place] [facility] [address] [id number] [place] [address] August, [facility] [place] [facility] [address] [id number] [place] [address] August, [facility] [place] [facility] [address] [id number] [place] [address] August, [facility] [place] [facility] [address] [id number] [place] [address] Jul, [facility] [place] [facility] [address] [id number] [place] [address] Jul, [facility] [place] [facility] [address] [id number] [place] [address] Jul, [facility] [place] [facility] [address] [id number] [place] [address] Jun, [facility] [place] [facility] [address] [id number] [place] [address] Jun, [facility] [place] [facility] [address] [id number] [place] [address] Jun, [facility] [place] [facility] [address] [id number] [place] [address] Jun, [facility] [place] [facility] [address] [id number], [place] [address] Jun, [facility] [place] [facility] [address] [id number], [place] [address] Jun, [facility] [place] [facility] [address] [id number] [place] [address] Jun, [facility] [place] [facility] [address] [id number] [place] [address] Jun, [facility] [place] [facility] [address] [id number] [place] [address] May, [facility] [place] [facility] [address] [id number] [place] [address] 17 May, 2014 [facility] [address] [id number] [place] [address] May, 2014 [facility] [place] [facility] [address] [id number] [place] [address] 28[address] May, 2014 [facility] [address] [id number] [place] [address] 2407 Apr, [facility] [place] [facility] [address] [id number] [place] [address] Mar, [facility] [address] [id number] [place] [address] 32[address] Mar, [facility] [place] [facility] [address] [id number] [place] [address] Mar, [facility] [place] [facility] [address] [id number] [place] [address] Mar, [facility] [address] [id number] [place] [address] 89[address] Mar, [facility] [place] [facility] [address] [id number] [place] [address] 95[address] Mar, [facility] [address] [facility] [id number] [place] [address] Mar, [facility] [place] [facility] [address] [id number] [place] [address] 7436 Mar, [facility] [place] [facility] [address] [id number] [place] [address] 1365 Mar, [facility] [place] [facility] [address] [id number] [place] [address] Feb, [facility] [place] [facility] [address] [id number] [place] [address] Feb, [facility] [place] [facility] [address] [id number] [place] [address] Feb, [facility] [place] [facility] [address] [id number] [place] [address] 4[address] 17 Feb, 2014 [facility] [place] [facility] [address] [id number] [place] [address] 79[address] 14 Feb, 2014 [facility] [place] [facility] [address] [id number] [place] [address] 14 Feb, 2014 [facility] [place] [facility] [address] [id number] [place] [address] Feb, [facility] [place] [facility] [address] [id number] [place] [address] Feb, [facility] [place] [facility] [address] [id number] [place] [address] 9[address] 23 Jan, 2014 [facility] [place] [facility] [address] [id number] [place] [address] 3[address] 23 Jan, 2014 [facility] [place] [facility] [address] [id number] [place] [address] 8277 16 Jan, 2014 [facility] [place] [facility] [address] [id number] [place] [address] 16 Jan, 2014 [facility] [place] [facility] [address] [id number] [address] 15 Jan, 2014 [facility] [place] [facility] [address] [id number], [place] [address] 15 Jan, 2014 [facility] [place] [facility] [address] [id number], [place] [address] 14 Jan, 2014 [facility] [place] [facility] [address] [id number] [place] [address] 96[address] 14 Jan, 2014 [facility] [place] [facility] [address] [id number] [place] [address] 18[address] 14 Jan, 2014 [facility] [place] [facility] [address] [id number], [place] [address] 14 Jan, 2014 [facility] [place] [facility] [address] [id number], [place] [address] Dec, [facility] [place] [facility] [address] [id number] [place] [address] 2746 18 Dec, 2013 [facility] [place] [facility] [address] [id number] [place] [address] 8795 Dec, [facility] [place] [facility] [address] [id number] [place] [address] 2074 Dec, [facility] [place] [facility] [address] [id number] [place] [address] 9163 Nov, [facility] [place] [facility] [address] [id number] [place] [address]- 8214 Nov, [facility] [place] [facility] [address] [id number] [place] [address]- 6155 Nov, [facility] [place] [facility] [address] [id number] [place] [address]- 5111 Nov, [facility] [place] [facility] [address] [id number] [place] [address]- 2438 Nov, [facility] [place] [facility] [address] [id number] [place] [address]- 2684 Oct, [facility] [place] [facility] [address] [id number] [place] [address] 4788 Oct, [facility] [place] [facility] [address] [id number] [place] [address] 0235 Oct, [facility] [place] [facility] [address] [id number] [place] [address]- 8736 Oct, [facility] [place] [facility] [address] [id number] [place] [address] 376[address] Sep, [facility] [place] [facility] [address] [id number] [place] [address]- 5289 Sep, [facility] [place] [facility] [address] [id number] [place] [address] 8213 Sep, [facility] [place] [facility] [address] [id number] [place] [address]- 2515 Sep, [facility] [place] [facility] [address] [id number] [place] [address]- 2084 Sep, [facility] [place] [facility] [address] [id number] [place] [address]- 7769 Sep, [facility] [place] [facility] [address] [id number] [place] [address]- 1558 Sep, [facility] [place] [facility] [address] [id number] [place] [address]- 5390 Sep, [facility] [place] [facility] [address] [id number] [place] [address]- 6[address] August, [facility] [place] [facility] [address] [id number] [place] [address]- 6515 August, [facility] [place] [facility] [address] [id number] [place] [address]- 4127 August, [facility] [place] [facility] [address] [id number] [place] [address]- 8406 August, [facility] [place] [facility] [address] [id number] [place] [address]- 5128 August, [facility] [place] [facility] [address] [id number] [place] [address]- 8641 August, [facility] [place] [facility] [address] [id number] [place] [address]- 3226 August, [facility] [place] [facility] [address] [id number] [place] [address]- 2887 Jul, [facility] [place] [facility] [address] [id number] [place] [address]- 0873 Jul, [facility] [place] [facility] [address] [id number] [place] [address]- 8169 Jul, [facility] [place] [facility] [address] [id number] [place] [address]- 2624 Jul, [facility] [place] [facility] [address] [id number] [place] [address]- 4641 Jul, [facility] [place] [facility] [address] [id number] [place] [address]- 4180 Jul, [facility] [place] [facility] [address] [id number] [place] [address]- 6748 Jul, [facility] [place] [facility] [address] [id number] [place] [address]- 7296 Jul, [facility] [place] [facility] [address] [id number] [place] [address]- 5537 Jul, [facility] [place] [facility] [address] [id number] [place] [address]- 2273 Jul, [facility] [place] [facility] [address] [id number] [place] [address]- 7596 Jul, [facility] [place] [facility] [address] [id number] [place] [address]- 4137 Jul, [facility] [place] [facility] [address] [id number] [place] [address]- 8703 Jun, [facility] [place] [facility] [address] [id number] [place] [address]- 2538 Jun, [facility] [place] [facility] [address] [id number] [place] [address]- 0111 Jun, [facility] [place] [facility] [address] [id number] [place] [address]- 4565 Jun, [facility] [place] [facility] [address] [id number] [place] [address]- 0284 Jun, [facility] [place] [facility] [address] [id number] [place] [address]- 8137 May, [facility] [place] [facility] [address] [id number] [place] [address]- 1578 May, [facility] [place] [facility] [address] [id number] [place] [address]- 0310 May, 2013 [facility] [place] [facility] [address] [id number] [place] [address]- 7568 May, 2013 [facility] [place] [facility] [address] [id number] [place] [address] May, 2013 [facility] [place] [facility] [address] [id number] [place] [address]- 0986 May, 2013 [facility] [place] [facility] [address] [id number] [place] [address]- 3816 May, [facility] [place] [facility] [address] [id number] [place] [address]- 9781 May, [facility] [place] [facility] [address] [facility] [id number] [place] [address]- 5004 Mar, [facility] [place] [facility] [address] [facility] [id number] [place] [address]- 4649 Mar, [facility] [place] [facility] [address] [id number] [place] [address]- 5250 Mar, [facility] [place] [facility] [address] [facility] [id number] [place] [address]- [address]138 Mar, [facility] [place] [facility] [address] [facility] [id number] [place] [address] Mar, [facility] [place] [facility] [address] [facility] [id number] [place] [address]- 3439 Mar, [facility] [place] [facility] [address] [id number] [place] [address]- 4960 Feb, [facility] [place] [facility] [address] [id number] [place] [address]- 7076 Feb, [facility] [place] [facility] [address] [facility] [id number] [place] [address]- 6843 Jan, [facility] [place] [facility] [address] [id number] [place] [address]- 7309 Jan, [facility] [place] [facility] [address] [id number] [place] [address]- 0578 Jan, [facility] [place] [facility] [address] [id number] [place] [address]- 3656 Jan, [facility] [place] [facility] [address] [id number] [place] [address]- 8501 Jan, [facility] [place] [facility] [address] [id number] [place] [address]- 8715 Jan, [facility] [place] [facility] [address] [id number] [place] [address]- 5558 Jan, [facility] [place] [facility] [address] [id number] [place] [address]- 5700 Jan, [facility] [place] [facility] [address] [id number] [place] [address]- 1935 Jan, [facility] [place] [facility] [address] [id number] [place] [address]- 7509 Jan, [facility] [place] [facility] [address] [id number] [place] [address]- 4721 Dec, [facility] [place] [facility] [address] [id number] [place] [address]- 2965 Nov, [facility] [place] [facility] [address] [id number], [place] [address]- 1740 Nov, [facility] [place] [facility] [address] [id number], [place] [address]- 4618 Nov, [facility] [place] [facility] [address] [id number] [place] [address]- 9627 Oct, [facility] [place] [facility] [address] [id number], [place] [address]- 4452 Oct, [facility] [place] [facility] [address] [id number] [place] [address]- 3314 August, [facility] [place] [facility] [address] [id number] [address] Apr, [facility] [address] [address] Apr, [facility] [id number] [address] Feb, [facility] [address], [place] [address]- 4114 Feb, [facility] [id number] [address]- 7738 Dec, [facility] [id number] [place] [address]- [address]235 Dec, [facility] [address], [place] [address]- 1702 Oct, [facility] [address] [address] Oct, [facility] [address] [address]- 1133 Oct, [facility] [address] [address] Jul, IMMUNIZATIONS No Known Immunizations SOCIAL HISTORY Never Assessed REASON FOR VISIT letter PLAN OF CARE VITAL SIGNS MEDICATIONS Unknown [...] psychosis/mental illness , last one in [facility] 4 years ago
--- OUTSIDE RECORDS SUMMARY | 2018-09-02 14:15 | XMS REPORT ---
Author Author EMTRINHSOTO Organization [facility] Address [address] [place] [address] Care Team Providers Care Plumbing Installer Name Role Phone STRICKLANDSOTO Carias Unavailable PROBLEMS Type Condition ICD9-CM Code SJE22-ML Code Onset Dates Condition Status SNOMED Code Problem Morbid obesity due to excess calories E66.01 Active 389825942 Problem Type 2 diabetes mellitus without complication, without long-term current use of insulin E11.9 Active 900777344 Problem Paranoid schizophrenia F20.0 Active 77651587 Problem Other elevated white blood cell (WBC) count D72.828 Active 038954236 Problem Primary insomnia F51.01 Active 0646201 Problem Gastroesophageal reflux disease without esophagitis K21.9 Active 344095155 Problem ARIAS on CPAP G47.33 Active 72186260 Problem Schizoaffective disorder, depressive type F25.1 Active 77233412 Problem Seasonal allergic rhinitis due to other allergic trigger J30.89 Active 780657857 Problem History of lupus Z87.39 Active 686725945 Problem Peripheral edema R60.9 Active 696089756 Problem OAB (overactive bladder) N32.81 Active 393920386 Problem Depression with anxiety F41.8 Active 998524054 Problem Parkinsonian tremor G20 Active 071120999 Problem Chronic pain syndrome G89.4 Active 315475665 Problem Hypothyroidism, unspecified type E03.9 Active 55182342 Problem Chronic obstructive pulmonary disease, unspecified COPD type J44.9 Active 66068492 ALLERGIES Unknown Allergies SOCIAL HISTORY No smoking Hx information available PLAN OF CARE VITAL SIGNS MEDICATIONS Unknown Medications RESULTS No Results PROCEDURES No Known procedures IMMUNIZATIONS No Known Immunizations
--- OUTSIDE RECORDS SUMMARY | 2018-09-02 14:15 | XMS REPORT ---
Author Author RADHA ROJAS [facility] eClinical[employer] Address Unknown Phone Unavailable Care Team Providers Care Tobacco Prizer Name Role Phone RADHA ROJAS CP Unavailable Allergies No Known Allergies Problems Problem Type Condition Code Onset Dates Condition Status Problem Essential and other specified forms of tremor 333.1 Active Problem Routine gynecological examination V72.31 Active Problem Unspecified breast screening V76.10 Active Problem Dyspareunia 625.0 Active Problem Obstructive sleep apnea (adult) (pediatric) 327.23 Active Problem Postmenopausal atrophic vaginitis 627.3 Active Problem Unspecified hypothyroidism 244.9 Active Problem Other and unspecified hyperlipidemia 272.4 Active Problem Cervicalgia 723.1 Active Problem Lumbago 724.2 Active Problem Osteoarthrosis, unspecified whether generalized or localized, unspecified site 715.90 Active Problem Chronic airway obstruction, not elsewhere classified 496 Active Problem Essential hypertension, benign 401.1 Active Problem Diabetes mellitus without mention of complication, type II or unspecified type, not stated as uncontrolled 250.00 Active Problem Lupus erythematosus 695.4 Active Problem Other abnormal glucose 790.29 Active Medications Medication Code System Code Instructions Start Date End Date Status Dosage ProAir HFA [facility] [address]-04 90 mcg/actuation Inhalation every 4 hrs Nov 2 puffs as needed Results No Known Results Summary Purpose eClinicalWorks Submission
--- OUTSIDE RECORDS SUMMARY | 2018-09-02 14:16 | XMS REPORT ---
Author Author SOTO STRICKLAND Organization [employer] Address Unknown Phone Unavailable Care Team Providers Care Drinking Water Technician Name Role Phone SOTO STRICKLAND CP Unavailable [...] Other seasonal allergic rhinitis J30.2 Active Assessment Muscle strain T14.8 Active Problem History of lupus Z87.39 Active Problem Peripheral edema R60.9 Active Problem Parkinsonian tremor G20 Active Medications Medication Code System Code Instructions Start Date End Date Status Dosage Premarin [facility] 81889632561 0.625 MG/GM insert 0.5 gram by vaginal route twice weekly Myrbetriq [facility] [address]-33 50 MG Orally Once a day 1 tablet metformin [facility] [address]-98 1,000 mg orally 2 times a day July 05, 2014 1 tablet Nexium [facility] [address]-08 40 mg Orally Once a day 1 capsule Sertraline HCl [facility] [address]-56 100 MG Orally Once a day 1 tablet Pravastatin Sodium [facility] 19521659241 10 MG Orally Once a day 1 tablet Spironolactone [facility] [address]-31 50 mg Orally Once a day 1 tablet Mupirocin [facility] [address]-89 2 % Externally Three times a day Apr 20, 2014 1 Application by Nasal route 2 times per day to each nare--disp 22 gram tube Trazodone HCl [facility] [address]-18 150 MG Orally Once a day 1 tablet at bedtime as needed Tizanidine HCl [facility] [address]-59 4 MG Orally 3 times a day 1 1/2 tablets Vistaril [facility] [address]-51 25 MG Orally every 8 hrs Jan 29, 2016 1 capsule as needed Breo Ellipta [facility] [address]-20 100-25 mcg/dose Inhalation Once a day July 05, 2014 inhale 1 puff by inhalation route once daily at the same time each day Gabapentin [facility] [address]-92 600 MG Orally Three times a day 1 tablet Triamcinolone Acetonide [facility] 60379149503 0.5 % APPLY TOPICALLY TWICE DAILY Claritin [facility] [address]-81 10 mg Orally Once a day 1 tablet Invega Sustenna [facility] [address]-90 234 MG/1.5ML Intramuscular Once q monthly on the 20 05 drop Levothyroxine Sodium [facility] 26073404136 150 MCG Orally Once a day 1 tablet Restasis [facility] [address]-14 0.05 % November 15, 2012 instill 1 drop into affected eye(s) by ophthalmic route 2 times per day Norvasc [facility] [address]-94 10 mg Orally Once a day 1 tablet Loxapine Succinate [facility] [address]-79 25 MG Orally 4 times a day PRN 1 capsule Procedures Procedure Coding System Code Date Office Visit, Est Pt., Level 3 CPT-4 18870 Feb 07, 2016 [facility] VISIT ESTABLISHED PATIENT CPT-4 G0467 Feb 07, 2016 Vital Signs Date/Time: Feb 07, 2016 Cardiac Monitoring Heart Rate 90 bpm Weight 215 lbs Height 57 in BMI 46.52 Index Blood Pressure Diastolic 70 mmHg Blood Pressure Systolic 110 mmHg Results No Known Results Summary Purpose eClinicalWorks Submission
--- OUTSIDE RECORDS SUMMARY | 2018-09-02 14:16 | XMS REPORT ---
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 Name Role Phone UMESH PINEDA Unavailable PROBLEMS Type Condition ICD9-CM Code DDP41-BT Code Onset Dates Condition Status SNOMED Code Problem Other seasonal allergic rhinitis J30.2 Active 927826026 Problem Gastroesophageal reflux disease, esophagitis presence not specified K21.9 Active 195500330 Problem Tobacco abuse Z72.0 Active 220606928 Problem Seasonal allergic rhinitis due to pollen J30.1 Active 01738719 Problem History of lupus Z87.39 Active 982363291 Problem COPD exacerbation J44.1 Active 253263525 Problem OAB (overactive bladder) N32.81 Active 887621534 Problem Morbid obesity due to excess calories E66.01 Active 148850675 Problem Dyslipidemia E78.5 Active 657873168 Problem Migraine without aura and without status migrainosus, not intractable G43.009 Active 932548234 Problem Hypothyroidism (acquired) E03.9 Active 264204685 Problem Essential hypertension I10 Active 64848961 Problem Type 2 diabetes mellitus without complication, without long-term current use of insulin E11.9 Active 884525971 Problem Gastroesophageal reflux disease without esophagitis K21.9 Active 094964797 Problem Chronic pain syndrome G89.4 Active 011347661 Problem Paranoid schizophrenia F20.0 Active 59795469 Problem Primary insomnia F51.01 Active 2916851 Problem DM neuro manif type II E11.49 Active 79796217 Problem Depression with anxiety F41.8 Active 400469653 Problem Seasonal allergic rhinitis due to other allergic trigger J30.89 Active 156368621 Problem Menopausal syndrome (hot flashes) N95.1 Active 452201709 Problem Chronic obstructive pulmonary disease, unspecified COPD type J44.9 Active 93849740 Problem Schizoaffective disorder, depressive type F25.1 Active 83962481 Problem Other allergic rhinitis J30.89 Active 398818312 ALLERGIES Substance Reaction Event Type Date Status Sulfamethoxazole-Trimethoprim Unknown Drug Allergy Mar, Active Penicillin V Potassium Unknown Drug Allergy Mar, Active ENCOUNTERS Encounter Location Date Diagnosis [facility] [id number] [place] [address] 10344- 4312 Nov, [facility] [id number] [place] [address] 97676- 1644 Oct, [facility] [id number] [place] [address] 49267- 3544 Sep, Paranoid schizophrenia F20.0 [facility] [id number] [place] [address] 39848- 5455 Sep, [facility] [id number] [place] [address] 34236- 5451 Sep, Hypothyroidism (acquired) E03.9 [facility] [id number] [place] [address] 57411- 2976 Sep, [facility] [id number] [place] [address] 02589- 7924 August, Schizoaffective disorder, depressive type F25.1 [facility] [id number] [place] [address] 54808- 2431 August, [facility] [id number] [place] [address] 10938- 8419 August, [facility] [id number] [place] [address] 53697- 5694 August, [facility] [id number] [place] [address] 65008- 8412 August, Paranoid schizophrenia F20.0 [facility] [id number] [place] [address] 41286- 0374 August, History of lupus Z87.39 and Chronic pain syndrome G89.4 [facility] [id number] [place] [address] 27764- 9368 August, [facility] [id number] [place] [address] 37354 -0979 August, Seasonal allergic rhinitis, unspecified trigger J30.2 and BMI 45.0-49.9, adult Z68.42 [place] [id number] [place] [address] 44860- 1198 Jul, Schizoaffective disorder, depressive type F25.1 [place] [address] 31775- 8712 Jul, [place] [address] 84545- 5499 Jul, Hypothyroidism (acquired) E03.9 [place] [address] 38088- 4662 11 Jul, 2017 Chronic obstructive pulmonary disease, unspecified COPD type J44.9 and Type 2 diabetes mellitus without complication, without long-term current use of insulin E11.9 [place] [id number] [place] [address] 62172- 3273 Jul, Paranoid schizophrenia F20.0 [place] [address] 43940- 5441 Jun, Hypothyroidism (acquired) E03.9 and Seasonal allergic rhinitis due to pollen J30.1 [facility] [id number] [place] [address] 63247 -6749 Jun, Shortness of breath at rest R06.02 ; COPD exacerbation J44.1 and BMI 45.0-49.9, adult Z68.42 [place] [address] 01801- 4058 Jun, [place] [address] 60199- 8554 Jun, Paranoid schizophrenia F20.0 ; Depression with anxiety F41.8 and BMI 45.0-49.9, adult Z68.42 [place] [id number] [place] [address]- 3947 Jun, Schizoaffective disorder, depressive type F25.1 [facility] [address] [id number] Jun, Dental caries K02.9 [facility] [address] 91866- 2798 Jun, Paranoid schizophrenia F20.0 [facility] [id number]- 6893 May, Migraine without aura and without status migrainosus, not intractable G43.009 ; DM neuro manif type II E11.49 and Type 2 diabetes mellitus without complication, without long-term current use of insulin E11.9 [facility] [id number] [place] [address] 92825- 6806 May, Migraine without aura and without status migrainosus, not intractable G43.009 [facility] [id number] [place] [address] 45528- 1895 May, Depression with anxiety F41.8 [facility] [address] [id number] May, [facility] [id number] [place] [address] 58493- 7687 May, [facility] [id number] [place] [address] 84784- 8808 May, [facility] [id number] [place] [address] 20606- 2163 May, Hypothyroidism (acquired) E03.9 [facility] [address] 54409- 1071 May, Paranoid schizophrenia F20.0 [facility] [id number] [place] [address] 49533- 1097 May, Type 2 diabetes mellitus without complication, [...] N32.81 and Controlled substance agreement signed Z79.899 [place] [address] 94867- 2259 May, Controlled substance agreement signed Z79.899 [place] [address] 21328- 5754 Apr, [facility] [address] [id number] Apr, Dental examination Z01.20 [place] [address] 59713- 9463 Apr, Paranoid schizophrenia F20.0 [facility] [address] 89317- 8372 Apr, Hypertension, unspecified type I10 [facility] [address] 01943- 7388 Apr, Paranoid schizophrenia F20.0 [facility] [address] 23307- 6755 Apr, [place] [address] 77390- 1621 Apr, Tobacco abuse Z72.0 [facility] [address] 92220- 6658 Apr, [facility] [address] 63758- 4573 Mar, [facility] [id number] [place] [address] 46218- 0020 Mar, Paranoid schizophrenia F20.0 and BMI 45.0-49.9, adult Z68.42 [facility] [id number] [place] [address] 21839- 4186 15 Mar, 2017 Schizoaffective disorder, depressive type F25.1 [facility] [address] 89933- 7859 Mar, [place] [address] 36881- 3170 Mar, Schizoaffective disorder, depressive type F25.1 [facility] [id number] [place] [address] 14614- 6747 Mar, Hypothyroidism, unspecified type E03.9 [facility] [id number] [place] [address] 12802 -3077 Feb, Gastroenteritis K52.9 and BMI 45.0-49.9, adult Z68.42 [place] [address] 92928- 9265 Feb, [facility] [id number] [place] [address] 64645- 4683 Feb, [place] [id number] [place] [address] 36629- 8286 Feb, [facility] [id number] [place] [address] 30507- 4637 Feb, [place] [id number] [place] [address] 19520- 3574 10 Feb, 2017 Paranoid schizophrenia F20.0 [facility] [id number] [place] [address] 62262- 8962 06 Feb, 2017 Gastroesophageal reflux disease without esophagitis K21.9 ; Other seasonal allergic rhinitis J30.2 ; Other allergic rhinitis J30.89 ; Tobacco abuse Z72.0 and BMI 40.0-44.9, adult Z68.41 [place] [id number] [place] [address] 19562- 7283 Feb, Onychomycosis B35.1 ; Callus of foot L84 and DM neuro manif type II E11.49 [place] [id number] [place] [address] 87604- 7267 Jan, Chronic allergic rhinitis J30.9 [facility] [id number] [place] [address] 18527- 3126 Jan, [place] [address] 47334- 7796 Jan, Schizoaffective disorder, depressive type F25.1 [place] [id number] [place] [address] 70557- 9356 Jan, [facility] [id number] [place] [address] 15236 -2733 Jan, Sore throat J02.9 and Seasonal allergic rhinitis due to other allergic trigger J30.89 [place] [id number] [place] [address] 64640- 3282 Jan, [facility] [id number] [place] [address] 95571- 7675 Jan, [facility] [id number] [place] [address] 60657 -6134 Jan, Chronic allergic rhinitis J30.9 [facility] [id number] [place] [address] 93775- 7805 27 Dec, 2016 Paranoid schizophrenia F20.0 ; Primary insomnia F51.01 and Schizoaffective disorder, depressive type F25.1 [facility] [address] [place] [address] 74035- 9232 Dec, Chronic pain syndrome G89.4 ; Cervicalgia of occipito- atlanto-axial region M54.2 ; Menopausal syndrome (hot flashes) N95.1 and Encounter for immunization Z23 [place] [id number] [place] [address] 37826- 0798 14 Dec, 2016 [place] [id number] [place] [address] 04278- 2951 13 Dec, 2016 [place] [address] 67893- 1031 Dec, Paranoid schizophrenia F20.0 [place] [id number] [place] [address] 11857- 7887 Dec, Schizoaffective disorder, depressive type F25.1 [place] [address] 72819- 3245 Nov, Hypothyroidism, unspecified type E03.9 [facility] [address] 44839 -5529 Nov, Acute seasonal allergic rhinitis due to other allergen J30.89 [place] [id number] [place] [address] 93773- 9764 Nov, [place] [address] 77651- 6896 Nov, Hypothyroidism, unspecified type E03.9 and Other elevated white blood cell (WBC) count D72.828 [place] [id number] [place] [address] 74605- 8928 Nov, Schizoaffective disorder, depressive type F25.1 [place] [id number] [place] [address] 85426- 0540 Nov, Paranoid schizophrenia F20.0 [place] [address] 93373- 4218 Nov, Type 2 diabetes mellitus without complication, without long- term current use of insulin E11.9 ; Morbid obesity due to excess calories E66.01 and Chronic pain syndrome G89.4 [place] [address] [place] [address]- 4107 Oct, Paranoid schizophrenia F20.0 [place] [id number] [place] [address] 27522- 5246 Oct, [facility] [id number] [place] [address] 40321- 6042 Oct, Schizoaffective disorder, depressive type F25.1 [place] [address] 45033- 3044 Oct, Hypothyroidism, unspecified type E03.9 and Other elevated white blood cell (WBC) count D72.828 [place] [id number] [place] [address] 28389- 6414 Oct, Morbid obesity due to excess calories E66.01 ; Chronic obstructive pulmonary disease, unspecified COPD type J44.9 ; History of lupus Z87.39 ; Hypothyroidism, unspecified type E03.9 ; Gastroesophageal reflux disease without esophagitis K21.9 ; Primary insomnia F51.01 and Chronic pain syndrome G89.4 [place] [id number] [place] [address] 67999- 9276 Sep, [place] [address] 54683- 7608 Sep, [place] [id number] [place] [address] 24617- 0249 Sep, [place] [id number] [place] [address] 12977- 8507 Sep, Paranoid schizophrenia F20.0 [facility] [id number] [place] [address] 18739- 5324 Sep, [place] [id number] [place] [address] 72458- 1037 Sep, Paranoid schizophrenia F20.0 [facility] [id number] [place] [address] 16997- 7200 Sep, [facility] [address] [place] [address] 32255- 3694 August, Paranoid schizophrenia F20.0 [place] [id number] [place] [address] 33243- 4007 Jul, [place] [id number] [place] [address] 15731- 3703 Jul, Type 2 diabetes mellitus without complication, without long- term current use of insulin E11.9 ; Morbid obesity due to excess calories E66.01 ; Depression with anxiety F41.8 ; Hypothyroidism, unspecified type E03.9 ; Seasonal allergic rhinitis due to other allergic trigger J30.89 ; Pain, dental K08.89 and Gastroesophageal reflux disease without esophagitis K21.9 [facility] [address] [place] [address] [id number] Jul, Dental examination Z01.20 [place] [id number] [place] [address] 09728- 1171 07 Jul, 2016 Paranoid schizophrenia F20.0 [place] [id number] [place] [address] 40869- 2749 13 Jun, 2016 Paranoid schizophrenia F20.0 and Depression with anxiety F41.8 [place] [id number] [place] [address] 71674- 9409 Jun, Paranoid schizophrenia F20.0 and Depression with anxiety F41.8 [place] [id number] [place] [address] 96130- 5908 Jun, [place] [id number] [place] [address] 24864- 3908 Jun, [facility] [id number] [place] [address] 65792 -1194 Jun, Seasonal allergic rhinitis due to other allergic trigger J30.89 [facility] [id number] [place] [address] 53514 -3235 May, Sore throat J02.9 ; Other viral agents as the cause of diseases classified elsewhere B97.89 and Acute upper respiratory infection, unspecified J06.9 [place] [address] 29586- 3933 08 May, 2016 Paranoid schizophrenia F20.0 and Depression with anxiety F41.8 [place] [address] 96145- 0462 Apr, Other seasonal allergic rhinitis J30.2 [place] [address] 59507- 4123 Apr, Paranoid schizophrenia F20.0 and Depression with anxiety F41.8 [facility] [place] [address] 31498 -4528 Apr, Bronchitis J40 and Sore throat J02.9 [place] [address] 40905- 8558 Apr, Type 2 diabetes mellitus without complication, without long- term current use of insulin E11.9 [facility] [place] [address] 54193 -1715 Apr, Bronchitis J40 [place] [address] 74860- 1920 Apr, [place] [address] 04553- 0456 Apr, [place] [address] 86201- 5849 Mar, Type 2 diabetes mellitus without complication, [...] R60.9 and Other seasonal allergic rhinitis J30.2 [place] [address] [address]- 5742 Mar, Paranoid schizophrenia F20.0 and Depression with anxiety F41.8 [facility] [id number] [place] [address] 67094- 1118 Feb, [facility] [id number] [place] [address] 01036- 2039 Feb, [facility] [id number] [place] [address] 17936- 7827 Feb, [facility] [id number] [place] [address] 61689- 4295 Feb, [place] [id number] [place] [address] 10482- 5527 Feb, Type 2 diabetes mellitus without complication, without long- term current use of insulin E11.9 ; ARIAS on CPAP G47.33 and Preoperative evaluation to rule out surgical contraindication Z01.818 [facility] [address] [address]- 6219 Feb, Paranoid schizophrenia F20.0 and Depression with anxiety F41.8 [place] [id number] [place] [address] 43802- 8087 Jan, [facility] [id number] [place] [address] 14613- 9268 18 Jan, 2016 Paranoid schizophrenia F20.0 and Depression with anxiety F41.8 [facility] [address] [address]- 3761 17 Jan, 2016 [facility] [id number] [place] [address] 32442- 1761 14 Jan, 2016 Muscle strain T14.8 [facility] [address] [address]- 8626 10 Jan, 2016 Paranoid schizophrenia F20.0 [facility] [id number] [place] [address] 20903- 4652 Jan, [facility] [address] [address]- 1658 Jan, Paranoid schizophrenia F20.0 and Depression with anxiety F41.8 [facility] [id number] [address]- 8562 Jan, [facility] [id number] [place] [address] 62094- 2526 Jan, [facility] [id number] [place] [address] 78915- 8971 Dec, [facility] [id number] [place] [address] 25581- 1819 Dec, Paranoid schizophrenia F20.0 [facility] [id number] [place] [address] 51626- 5204 Dec, Paranoid schizophrenia F20.0 and Depression with anxiety F41.8 [facility] [id number] [place] [address] 13363- 5692 Nov, [facility] [id number] [place] [address] 19441- 7836 Nov, Paranoid schizophrenia F20.0 [facility] [id number] [place] [address] 57362- 8828 Nov, Paranoid schizophrenia F20.0 and Depression with anxiety F41.8 [facility] [id number] [place] [address] 45165- 9146 Nov, Type 2 diabetes mellitus without complication, without long- term current use of insulin E11.9 ; Paranoid schizophrenia F20.0 ; Chronic obstructive pulmonary disease, unspecified COPD type J44.9 ; Morbid obesity due to excess calories E66.01 and Parkinsonian tremor G20 [facility] [address] [address]- 0835 Nov, [facility] [id number] [place] [address] 13663- 8493 Oct, Paranoid schizophrenia F20.0 [place] [id number] [place] [address] 75804- 0973 Oct, Paranoid schizophrenia F20.0 [place] [id number] [place] [address] 62846- 9757 Oct, Paranoid schizophrenia F20.0 and Depression with anxiety F41.8 [place] [id number] [place] [address] 95091- 4480 Oct, [place] [id number] [place] [address] 30409- 0345 Oct, Paranoid schizophrenia F20.0 and Depression with anxiety F41.8 [place] [id number] [place] [address] 61553- 7500 Oct, Nasal sore J34.89 [place] [id number] [place] [address] 10096- 2874 Oct, Type 2 diabetes mellitus without complication, without long- term current use of insulin E11.9 ; Depression with anxiety F41.8 ; Hypothyroidism, unspecified type E03.9 and History of lupus Z87.39 [place] [address] [place] [address] 47843- 6746 Oct, [place] [id number] [place] [address] 49311- 5120 Oct, Type 2 diabetes mellitus without complication, [...] edema R60.9 and History of lupus Z87.39 [place] [id number] [address]- 8029 Feb, [facility] [address] [id number] [place] [address] Jan, [facility] [place] [facility] [address] [id number] [place] [address] Jan, [facility] [address] [facility] [id number] [place] [address] Jan, [facility] [place] [facility] [address] [id number] [place] [address] Dec, [facility] [address] [facility] [id number] [place] [address] Nov, [facility] [address] [facility] [id number] [place] [address] Nov, [facility] [id number] [address] Oct, [facility] [address] [facility] [id number] [place] [address] Oct, [facility] [id number] [address] Oct, [facility] [address] [id number] [address] Sep, Allergic rhinitis 477.9 [facility] [address] [id number] [address] Sep, Rhinitis, allergic 477.9 [facility] [address] [facility] [id number] [place] [address] Sep, Rhinitis, allergic 477.9 [facility] [address] [facility] [facility] [id number] [address] Sep, [facility] [place] [facility] [address] [facility] [id number] [place] [address] August, [facility] [address] [facility] [id number] [place] [address] August, [facility] [place] [facility] [address] [id number] [place] [address] August, [facility] [place] [facility] [address] [id number] [place] [address] 94[address] Jul, [facility] [place] [facility] [address] [id number] [place] [address] 14 Jul, 2014 [facility] [place] [facility] [address] [id number] [place] [address] 1276 Jul, [facility] [place] [facility] [address] [id number] [place] [address] 4[address] 16 Jun, 2014 [facility] [place] [facility] [address] [id number] [place] [address]28 Jun, [facility] [place] [facility] [address] [id number] [place] [address] 9078 Jun, [facility] [place] [facility] [address] [id number] [place] [address] 0756 Jun, [facility] [place] [facility] [address] [id number] [place] [address] Jun, [facility] [place] [facility] [address] [id number] [place] [address] 7717 Jun, [facility] [place] [facility] [address] [id number] [place] [address]- 6899 Jun, [facility] [place] [facility] [address] [id number] [place] [address] 5216 Jun, [facility] [place] [facility] [address] [id number] [place] [address]- 7546 May, [facility] [place] [facility] [address] [id number] [place] [address]- 2546 May, [facility] [place] [facility] [address] [id number] [place] [address] 1986 May, [facility] [place] [facility] [address] [id number] [place] [address] 3699 May, [facility] [place] [facility] [address] [id number] [place] [address]- 8273 Apr, [facility] [place] [facility] [address] [id number] [place] [address] Mar, [facility] [place] [facility] [address] [id number] [place] [address]- 9691 Mar, [facility] [place] [facility] [address] [id number] [place] [address]- 5820 Mar, [facility] [place] [facility] [address] [id number] [place] [address]- 8973 Mar, [facility] [place] [facility] [address] [id number] [place] [address]- 8553 Mar, [facility] [place] [facility] [address] [id number] [place] [address]- 2674 Mar, [facility] [place] [facility] [address] [id number] [place] [address]- 2175 Mar, [facility] [place] [facility] [address] [id number] [place] [address]- 3143 Mar, [facility] [place] [facility] [address] [id number] [place] [address]- 0327 Mar, [facility] [place] [facility] [address] [id number], [place] [address] Feb, [facility] [place] [facility] [address] [id number] [place] [address]- 1175 Feb, [facility] [place] [facility] [address] [id number] [place] [address]- 0193 Feb, [facility] [place] [facility] [address] [id number] [place] [address]- 4997 Feb, [facility] [place] [facility] [address] [id number] [place] [address]- 1242 14 Feb, 2014 [facility] [place] [facility] [address] [id number] [place] [address]- 8158 14 Feb, 2014 [facility] [place] [facility] [address] [id number] [place] [address]- 8[address] 12 Feb, 2014 [facility] [place] [facility] [address] [id number] [place] [address]- 9744 12 Feb, 2014 [facility] [place] [facility] [address] [id number] [place] [address]- [address]85 23 Jan, 2014 [facility] [place] [facility] [address] [id number] [place] [address]- 6576 23 Jan, 2014 [facility] [place] [facility] [address] [id number] [place] [address]- 2243 16 Jan, 2014 [facility] [place] [facility] [address] [id number] [place] [address]- 7066 16 Jan, 2014 [facility] [place] [facility] [address] [id number] [place] [address]- 7110 15 Jan, 2014 [facility] [place] [facility] [address] [id number] [place] [address]- 0083 15 Jan, 2014 [facility] [place] [facility] [address] [id number] [place] [address]- [address] 14 Jan, 2014 [facility] [place] [facility] [address] [id number] [place] [address]- 4938 14 Jan, 2014 [facility] [place] [facility] [address] [id number] [place] [address]- 2851 14 Jan, 2014 [facility] [place] [facility] [address] [id number] [place] [address]- 0782 14 Jan, 2014 [facility] [place] [facility] [address] [id number] [place] [address]- 6209 18 Dec, 2013 [facility] [place] [facility] [address] [id number] [place] [address]- 4784 Dec, [facility] [place] [facility] [address] [id number] [place] [address]- 3775 Dec, [facility] [place] [facility] [address] [id number] [place] [address]- 1875 Dec, [facility] [place] [facility] [address] [id number] [place] [address]- 1472 Nov, [facility] [place] [facility] [address] [id number] [place] [address]- 5545 Nov, [facility] [place] [facility] [address] [id number] [place] [address]- 7775 Nov, [facility] [place] [facility] [address] [id number] [place] [address]- 3393 Nov, [facility] [place] [facility] [address] [id number] [place] [address]- 6321 Nov, [facility] [place] [facility] [address] [id number] [place] [address]- 9919 Oct, [facility] [place] [facility] [address] [id number] [place] [address]- 9935 Oct, [facility] [place] [facility] [address] [id number] [place] [address]- 3660 Oct, [facility] [place] [facility] [address] [id number] [place] [address]- 9413 Oct, [facility] [place] [facility] [address] [id number] [place] [address]- 8226 Sep, [facility] [place] [facility] [address] [id number] [place] [address]- 1813 Sep, [facility] [place] [facility] [address] [id number] [place] [address]- 2179 Sep, [facility] [place] [facility] [address] [id number] [place] [address]- 2719 Sep, [facility] [place] [facility] [address] [id number] [place] [address]- 1929 Sep, [facility] [place] [facility] [address] [id number] [place] [address]- 3400 Sep, [facility] [place] [facility] [address] [id number] [place] [address]- 4482 Sep, [facility] [place] [facility] [address] [id number] [place] [address]- 1966 Sep, [facility] [place] [facility] [address] [id number] [place] [address]- 4278 August, [facility] [place] [facility] [address] [id number] [place] [address]- 9847 August, [facility] [place] [facility] [address] [id number] [place] [address]- 5161 August, [facility] [place] [facility] [address] [id number] [place] [address]- 0353 August, [facility] [place] [facility] [address] [id number] [place] [address]- 2506 August, [facility] [place] [facility] [address] [id number] [place] [address]- 8595 August, [facility] [place] [facility] [address] [id number] [place] [address]- 5111 August, [facility] [place] [facility] [address] [id number] [place] [address]- 0385 Jul, [facility] [place] [facility] [address] [id number] [place] [address]- 0568 Jul, [facility] [place] [facility] [address] [id number] [place] [address]- 5294 Jul, [facility] [place] [facility] [address] [id number] [place] [address]- 2372 Jul, [facility] [place] [facility] [address] [id number] [place] [address]- 5125 Jul, [facility] [place] [facility] [address] [id number] [place] [address]- 2775 Jul, [facility] [place] [facility] [address] [id number] [place] [address]- 8760 Jul, [facility] [place] [facility] [address] [id number] [place] [address]- 5776 Jul, [facility] [place] [facility] [address] [id number] [place] [address]- 8112 Jul, [facility] [place] [facility] [address] [id number] [place] [address]- 0528 Jul, [facility] [place] [facility] [address] [id number] [place] [address]- 5180 Jul, [facility] [place] [facility] [address] [id number] [place] [address]- 8771 Jul, [facility] [place] [facility] [address] [id number] [place] [address]- 7177 Jun, [facility] [place] [facility] [address] [id number] [place] [address]- 0945 Jun, [facility] [place] [facility] [address] [id number] [place] [address]- 3975 Jun, [facility] [place] [facility] [address] [id number] [place] [address]- 5257 Jun, [facility] [place] [facility] [address] [id number] [place] [address]- 2068 Jun, [facility] [place] [facility] [address] [id number] [place] [address]- 6675 May, [facility] [place] [facility] [address] [id number] [place] [address] May, [facility] [place] [facility] [address] [id number] [place] [address]- 6994 May, [facility] [place] [facility] [address] [id number] [place] [address]- 3583 May, 2013 [facility] [place] [facility] [address] [id number] [place] [address]- 4691 May, 2013 [facility] [place] [facility] [address] [id number] [place] [address]- 7324 May, [facility] [place] [facility] [address] [id number] [place] [address]- 3685 May, [facility] [place] [facility] [address] [id number] [place] [address]- 3212 May, [facility] [place] [facility] [address] [id number] [place] [address]- 2667 Mar, [facility] [place] [facility] [address] [id number] [place] [address]- 8204 Mar, [facility] [place] [facility] [address] [id number] [place] [address]- 3268 Mar, [facility] [place] [facility] [address] [id number] [place] [address]- 1816 Mar, [facility] [place] [facility] [address] [id number] [place] [address]- 0537 Mar, [facility] [place] [facility] [address] [id number] [place] [address]- 0601 Mar, [facility] [place] [facility] [address] [id number], [place] [address]- 5458 Feb, [facility] [place] [facility] [address] [id number], [place] [address]- 8620 Feb, [facility] [place] [facility] [address] [id number] [place] [address]- 1694 Jan, [facility] [place] [facility] [address] [id number] [place] [address]- 3287 Jan, [facility] [place] [facility] [address] [id number] [place] [address]- 1758 Jan, [facility] [place] [facility] [address] [id number] [place] [address]- 8811 Jan, [facility] [address] [id number] [place] [address]- 1121 Jan, [facility] [place] [facility] [address] [id number] [place] [address]- 0176 Jan, [facility] [address] [id number] [place] [address]- 9467 Jan, [facility] [place] [facility] [address] [id number] [place] [address]- 2261 Jan, [facility] [address] [id number] [place] [address]- 2684 Jan, [facility] [place] [facility] [address] [id number] [place] [address]- 6747 Jan, [facility] [place] [facility] [address] [id number] [place] [address]- 4481 Dec, [facility] [address] [id number] [place] [address]- 2542 Nov, [facility] [place] [facility] [address] [id number] [place] [address]- 9453 Nov, [facility] [address] [id number] [place] [address]- 4082 Nov, [facility] [place] [facility] [address] [id number] [place] [address]- 2549 Oct, [facility] [place] [facility] [address] [id number] [place] [address]- 2540 Oct, [facility] [place] [facility] [address] [id number] [place] [address]- 5867 August, [facility] [place] [facility] [address] [id number] [place] [address]- 2546 Apr, [facility] [place] [facility] [address] [id number] [place] [address] Apr, [facility] [address] [id number], [place] [address]- 9062 Feb, [facility] [id number], [place] [address]- 6[address] Feb, [facility] [id number], [place] [address]- 8887 Dec, [facility] [id number], [place] [address]- 1022 Dec, [facility] [address] [id number], [place] [address]- 7656 Oct, [facility] [id number], [place] [address]- 0685 Oct, [facility] [id number], [place] [address]- 4236 Oct, [facility] [address] [id number], [place] [address]- 5546 Jul, IMMUNIZATIONS No Known Immunizations SOCIAL HISTORY Never Assessed REASON FOR VISIT f/u PLAN OF CARE Activity Details Follow Up 3 Months Reason: VITAL SIGNS Height 57 in 2017-04-21 Weight 230.0 lbs 2017-04-21 Heart Rate 76 bpm 2017-04-21 Respiratory Rate 20 2017-04-21 BMI 49.77 kg/m2 2017-04-21 Blood pressure systolic 122 mmHg 2017-04-21 Blood pressure diastolic 86 mmHg 2017-04-21 MEDICATIONS Medication Instructions Dosage Frequency Start Date End Date Duration Status Ventolin HFA 108 (90 Base) MCG/ACT Inhalation every 4 hrs 2 puffs as needed 4h Feb, 90 days Active Zolpidem Tartrate 5MG TAKE ONE TABLET BY MOUTH AT BEDTIME Active Nicoderm CQ 21 MG/24HR Transdermal Once a day 1 patch to skin 24h Feb, Apr, 30 day(s) Active Singulair 10 MG Orally Once a day 1 tablet in the evening 24h Jan, 30 day(s) Active Ventolin HFA 108MCG/A INHALE TWO PUFFS BY MOUTH EVERY 4 HOURS NEEDED Active Plaquenil 200 mg Orally Once a day 1 tablet with food or milk 24h 30 Active Lisinopril 2.5 MG Orally Once a day 1 tablet 24h Nov, 90 days Active Ambien 5 mg Orally Once a day 1 tablet at bedtime 24h Oct, 28 days Active Metformin HCl 1000MG TAKE ONE TABLET BY MOUTH TWICE DAILY 90 Active Cetirizine HCl 10MG TAKE ONE TABLET BY MOUTH ONCE DAILY 90 Active Myrbetriq 50 MG Orally Once a day 1 tablet 24h 90 days Active Restasis 0.05 % instill 1 drop into affected eye(s) by ophthalmic route 2 times per day Oct, Active Spironolactone 50MG Orally Once a day 1 tablet 24h 30 Active Incontinence Supply Disposable SUPPLIES as directed Feb, 30 days Active Zoloft 100 mg Orally Once a day 1 tablet 24h Mar, 30 day(s) Active HydrOXYzine HCl 50 mg TAKE ONE TO TWO TABLETS BY MOUTH EVERY 8 HOURS NEEDED FOR 30 DAYS 30 days Active Loxapine Succinate 25 MG Orally 4 times a day PRN 1 capsule 30 days Active Invega Sustenna 234 MG/1.5ML Intramuscular Once a month, on the 10th of every month 1.5 ml 30 days Active Januvia 100 MG Orally Once a day 1 tablet 24h 90 days Active Esomeprazole Magnesium 40 mg Orally Once a day 1 capsule 24h Feb, 30 day(s) Active Norvasc 10 mg Orally Once a day 1 tablet 24h 30 Active Montelukast Sodium 10 mg Orally Once a day 1 tablet in the evening 24h Feb, 30 day(s) Active Ibuprofen 800MG TAKE ONE TABLET BY MOUTH THREE TIMES DAILY NEEDED Active Breo Ellipta 100-25 INHALE ONE PUFF BY MOUTH ONCE DAILY AT THE SAME TIME EACH DAY Active Neurontin 600MG Orally 2 times a day 1 tablet 12h Active Cetirizine HCl 10 mg Orally Once a day 1 tablet 24h Feb, Feb, 30 day(s) Active Sertraline HCl 50 mg TAKE ONE TABLET BY MOUTH ONCE DAILY (TAKE WITH 100MG TABLET) 30 days Active Estradiol 1 MG Orally Once a day 1 tablet 24h 30 Active Tramadol HCl 50 MG Orally every 6 hrs 1 tablet as needed 6h Active Pravastatin Sodium 20 MG Orally Once a day 1 tablet 24h Active Levothyroxine Sodium 200 MCG Orally Once a day 1 tablet 24h 30 days Active Tizanidine HCl 4 MG Orally 3 times a day 1 1/2 tablets 8h Active RESULTS No Results PROCEDURES Procedure Date Ordered Result Body Site [facility] VISIT ESTABLISHED PATIENT Apr 21, 2017 INSTRUCTIONS MEDICATIONS ADMINISTERED No Known Medications [...] Surgical History colonoscopy-- being done by Dr. Byres on November 03 in addition to EGD Hospitalization History several hospitalizations for psychosis/mental illness , last one in [facility] 4 years ago
--- OUTSIDE RECORDS SUMMARY | 2018-09-02 14:17 | XMS REPORT ---
Author Author STRICKLANDSOTO Carias Organization [facility] Address [address] [place] [address] Care Team Providers Care Web Production Designer Name Role Phone STRICKLANDSOTO Carias Unavailable PROBLEMS Type Condition ICD9-CM Code KCV56-MR Code Onset Dates Condition Status SNOMED Code Problem Other seasonal allergic rhinitis J30.2 Active 220158812 Problem Gastroesophageal reflux disease, esophagitis presence not specified K21.9 Active 997757187 Problem Tobacco abuse Z72.0 Active 621457380 Problem Seasonal allergic rhinitis due to pollen J30.1 Active 02556712 Problem History of lupus Z87.39 Active 238335209 Problem COPD exacerbation J44.1 Active 413364919 Problem OAB (overactive bladder) N32.81 Active 351725699 Problem Morbid obesity due to excess calories E66.01 Active 042459690 Problem Dyslipidemia E78.5 Active 763066696 Problem Migraine without aura and without status migrainosus, not intractable G43.009 Active 139061450 Problem Hypothyroidism (acquired) E03.9 Active 106568987 Problem Essential hypertension I10 Active 00069040 Problem Type 2 diabetes mellitus without complication, without long-term current use of insulin E11.9 Active 076909107 Problem Gastroesophageal reflux disease without esophagitis K21.9 Active 997296112 Problem Chronic pain syndrome G89.4 Active 387029387 Problem Paranoid schizophrenia F20.0 Active 08177244 Problem Primary insomnia F51.01 Active 8177252 Problem DM neuro manif type II E11.49 Active 31088249 Problem Depression with anxiety F41.8 Active 421925340 Problem Seasonal allergic rhinitis due to other allergic trigger J30.89 Active 496610914 Problem Menopausal syndrome (hot flashes) N95.1 Active 309949153 Problem Chronic obstructive pulmonary disease, unspecified COPD type J44.9 Active 86019936 Problem Schizoaffective disorder, depressive type F25.1 Active 66637302 Problem Other allergic rhinitis J30.89 Active 214213842 ALLERGIES Substance Reaction Event Type Date Status Sulfamethoxazole-Trimethoprim Unknown Drug Allergy Nov, Active Penicillin V Potassium Unknown Drug Allergy Nov, Active ENCOUNTERS Encounter Location Date Diagnosis [facility] [address] [address] Nov, [facility] [address] [address] Jul, [facility] [address] [address]- [address] Jul, Paranoid schizophrenia F20.0 [place] [address] 50[address]- [address]9 Jun, Hypothyroidism (acquired) E03.9 and Seasonal allergic rhinitis due to pollen J30.1 [facility] [address] [address] Jun, Shortness of breath at rest R06.02 ; COPD exacerbation J44.1 and BMI 45.0-49.9, adult Z68.42 [facility] [address] [address] Jun, [facility] [address] 150[address]- 6[address] Jun, Paranoid schizophrenia F20.0 ; Depression with anxiety F41.8 and BMI 45.0-49.9, adult Z68.42 [facility] [id number] [place] [address] 31583- 8006 Jun, Schizoaffective disorder, depressive type F25.1 [facility] [address] [id number] Jun, Dental caries K02.9 [facility] [address] [address]- [address] Jun, Paranoid schizophrenia F20.0 [place] [address] 7[address]- 6681 May, Migraine without aura and without status migrainosus, not intractable G43.009 ; DM neuro manif type II E11.49 and Type 2 diabetes mellitus without complication, without long-term current use of insulin E11.9 [facility] [address] [place] [address] 43077- 3315 May, Migraine without aura and without status migrainosus, not intractable G43.009 [facility] [id number] [place] [address] 32980- 8057 May, Depression with anxiety F41.8 [facility] [id number] [place] [address] [id number] May, [facility] [id number] [place] [address] 67883- 2670 May, [facility] [address] 7[address]- 5590 May, [facility] [address] 25293- 3960 May, Hypothyroidism (acquired) E03.9 [facility] [address] [address]69- 0961 May, Paranoid schizophrenia F20.0 [facility] [id number] [place] [address] 35824- 0872 May, Type 2 diabetes mellitus without complication, [...] and Controlled substance agreement signed Z79.899 [facility] [address] [place] [address] 86302- 8364 May, Controlled substance agreement signed Z79.899 [facility] [address] [place] [address] 71975- 2292 Apr, [facility] [address] [place] [address] [id number] Apr, Dental examination Z01.20 [facility] [id number] [place] [address] 07417- 7142 Apr, Paranoid schizophrenia F20.0 [facility] [id number] [place] [address] 97113- 4708 Apr, Hypertension, unspecified type I10 [facility] [id number] [place] [address] 44138- 9736 Apr, Paranoid schizophrenia F20.0 [facility] [id number] [place] [address] 34386- 0896 Apr, [facility] [id number] [place] [address] 40111- 5906 Apr, Tobacco abuse Z72.0 [facility] [id number] [place] [address] 11293- 0467 Apr, [facility] [id number] [place] [address] 30757- 3670 Mar, [facility] [id number] [place] [address] 15824- 0881 Mar, Paranoid schizophrenia F20.0 and BMI 45.0-49.9, adult Z68.42 [facility] [id number] [place] [address] 70164- 2173 Mar, Schizoaffective disorder, depressive type F25.1 [facility] [id number] [place] [address] 24274- 1983 Mar, [place] [id number] [place] [address] 17042- 0378 Mar, Hypothyroidism, unspecified type E03.9 [place] [address] 09008- 6845 Mar, Schizoaffective disorder, depressive type F25.1 [facility] [address] 39[address] -6824 Feb, Gastroenteritis K52.9 and BMI 45.0-49.9, adult Z68.42 [place] [address] 08303- 1232 Feb, [place] [address] 13228- 0654 Feb, [place] [address] 59181- 6287 Feb, [place] [address] 52152- 4331 Feb, [place] [address] 80077- 1122 Feb, Paranoid schizophrenia F20.[address] 74143- 6095 Feb, Gastroesophageal reflux disease without esophagitis K21.9 ; Other seasonal allergic rhinitis J30.2 ; Other allergic rhinitis J30.89 ; Tobacco abuse Z72.0 and BMI 40.0-44.9, adult Z68.41 [place] [id number] [place] [address] 82359- 5909 Feb, Onychomycosis B35.1 ; Callus of foot L84 and DM neuro manif type II E11.49 [place] [id number] [place] [address] 04092- 0555 Jan, Chronic allergic rhinitis J30.9 [place] [address] 29942- 3972 16 Jan, 2017 [facility] [address] [place] [address] 79755- 4367 Jan, Schizoaffective disorder, depressive type F25.1 [facility] [id number] [place] [address] 35910- 9466 10 Jan, 2017 [facility] [id number] [place] [address] 91777 -3511 07 Jan, 2017 Sore throat J02.9 and Seasonal allergic rhinitis due to other allergic trigger J30.89 [facility] [id number] [place] [address] 37213- 6256 Jan, [facility] [id number] [place] [address] 69120- 4521 Jan, [facility] [id number] [place] [address] 52184 -1049 Jan, Chronic allergic rhinitis J30.9 [facility] [id number] [place] [address] 17983- 0738 27 Dec, 2016 Paranoid schizophrenia F20.0 ; Primary insomnia F51.01 and Schizoaffective disorder, depressive type F25.1 [place] [id number] [place] [address] 61859- 0029 21 Dec, 2016 Chronic pain syndrome G89.4 ; Cervicalgia of occipito- atlanto-axial region M54.2 ; Menopausal syndrome (hot flashes) N95.1 and Encounter for immunization Z23 [facility] [id number] [place] [address] 00956- 8474 14 Dec, 2016 [place] [id number] [place] [address] 16977- 7990 13 Dec, 2016 [facility] [id number] [place] [address] 42822- 7550 08 Dec, 2016 Paranoid schizophrenia F20.0 [place] [id number] [place] [address] 98094- 9623 Dec, Schizoaffective disorder, depressive type F25.1 [facility] [address] [place] [address] 22793- 9650 Nov, Hypothyroidism, unspecified type E03.9 [facility] [address] [place] [address] 96525 -8139 Nov, Acute seasonal allergic rhinitis due to other allergen J30.89 [facility] [id number] [place] [address] 96108- 8329 Nov, [facility] [id number] [place] [address] 69004- 2818 Nov, Hypothyroidism, unspecified type E03.9 and Other elevated white blood cell (WBC) count D72.828 [place] [id number] [place] [address] 59344- 2593 Nov, Schizoaffective disorder, depressive type F25.1 [place] [id number] [place] [address] 51841- 4401 Nov, Paranoid schizophrenia F20.0 [place] [id number] [place] [address] 58692- 3123 Nov, Type 2 diabetes mellitus without complication, without long- term current use of insulin E11.9 ; Morbid obesity due to excess calories E66.01 and Chronic pain syndrome G89.4 [place] [id number] [place] [address] 96578- 6466 Oct, Paranoid schizophrenia F20.0 [place] [id number] [place] [address] 00262- 2154 Oct, [place] [id number] [place] [address] 53558- 7497 Oct, Schizoaffective disorder, depressive type F25.1 [place] [id number] [place] [address] 00464- 8176 Oct, Hypothyroidism, unspecified type E03.9 and Other elevated white blood cell (WBC) count D72.828 [facility] [address] [address]- 7417 Oct, Morbid obesity due to excess calories E66.01 ; Chronic obstructive pulmonary disease, unspecified COPD type J44.9 ; History of lupus Z87.39 ; Hypothyroidism, unspecified type E03.9 ; Gastroesophageal reflux disease without esophagitis K21.9 ; Primary insomnia F51.01 and Chronic pain syndrome G89.4 [facility] [id number] [place] [address] 46352- 7762 Sep, [place] [id number] [place] [address] 63528- 2111 Sep, [facility] [id number] [place] [address] 16732- 3856 Sep, [place] [id number] [place] [address] 89230- 6332 Sep, Paranoid schizophrenia F20.0 [facility] [address] [address]- 8362 Sep, [facility] [id number] [place] [address] 95174- 5927 Sep, Paranoid schizophrenia F20.0 [facility] [id number] [address]- 0071 Sep, [facility] [id number] [place] [address] 66257- 3706 August, Paranoid schizophrenia F20.0 [facility] [address] [address]- 3275 Jul, [facility] [id number] [place] [address] 90068- 5253 Jul, Type 2 diabetes mellitus without complication, without long- term current use of insulin E11.9 ; Morbid obesity due to excess calories E66.01 ; Depression with anxiety F41.8 ; Hypothyroidism, unspecified type E03.9 ; Seasonal allergic rhinitis due to other allergic trigger J30.89 ; Pain, dental K08.89 and Gastroesophageal reflux disease without esophagitis K21.9 [facility] [address] [place] [address] [id number] Jul, 2016 Dental examination Z01.20 [facility] [id number] [place] [address] 71090- 1356 07 Jul, 2016 Paranoid schizophrenia F20.0 [place] [address] 64799- 2312 13 Jun, 2016 Paranoid schizophrenia F20.0 and Depression with anxiety F41.8 [place] [address] 09547- 1802 10 Jun, 2016 Paranoid schizophrenia F20.0 and Depression with anxiety F41.8 [place] [id number] [place] [address] 95195- 3542 09 Jun, 2016 [facility] [id number] [place] [address] 13786- 6681 Jun, [facility] [id number] [place] [address] 48664 -9505 Jun, Seasonal allergic rhinitis due to other allergic trigger J30.89 [facility] [id number] [place] [address] 15816 -8025 May, Sore throat J02.9 ; Other viral agents as the cause of diseases classified elsewhere B97.89 and Acute upper respiratory infection, unspecified J06.9 [place] [id number] [place] [address] 82227- 0772 May, Paranoid schizophrenia F20.0 and Depression with anxiety F41.8 [place] [id number] [place] [address] 77886- 1625 Apr, Other seasonal allergic rhinitis J30.2 [place] [id number] [place] [address] 80126- 1360 Apr, Paranoid schizophrenia F20.0 and Depression with anxiety F41.8 [facility] [id number] [place] [address] 35896 -1573 Apr, Bronchitis J40 and Sore throat J02.9 [facility] [id number] [place] [address] 72342- 1562 Apr, Type 2 diabetes mellitus without complication, without long- term current use of insulin E11.9 [facility] [address] 53375 -6235 Apr, Bronchitis J40 [place] [address] 52425- 5920 Apr, [place] [address] 78573- 0083 Apr, [place] [address] 64869- 9737 Mar, Type 2 diabetes mellitus without complication, [...] Other seasonal allergic rhinitis J30.2 [place] [id number] [place] [address] 09466- 2494 Mar, Paranoid schizophrenia F20.0 and Depression with anxiety F41.8 [place] [id number] [place] [address] 13591- 2945 Feb, [place] [address] 21604- 5706 Feb, [place] [id number] [place] [address] 18291- 7775 Feb, [place] [id number] [place] [address] 51793- 5524 14 Feb, 2016 [facility] [id number] [place] [address] 15561- 3739 14 Feb, 2016 Type 2 diabetes mellitus without complication, without long- term current use of insulin E11.9 ; ARIAS on CPAP G47.33 and Preoperative evaluation to rule out surgical contraindication Z01.818 [facility] [id number] [place] [address] 59898- 8045 09 Feb, 2016 Paranoid schizophrenia F20.0 and Depression with anxiety F41.8 [place] [id number] [place] [address] 43046- 2923 Jan, [facility] [id number] [place] [address] 64030- 4308 Jan, Paranoid schizophrenia F20.0 and Depression with anxiety F41.8 [facility] [id number] [place] [address] 60598- 8732 Jan, [facility] [id number] [place] [address] 62589- 9617 Jan, Muscle strain T14.8 [facility] [id number] [place] [address] 42217- 5430 Jan, Paranoid schizophrenia F20.0 [facility] [id number] [place] [address] 89499- 8730 Jan, [facility] [id number] [place] [address] 01711- 6819 Jan, Paranoid schizophrenia F20.0 and Depression with anxiety F41.8 [facility] [id number] [place] [address] 02568- 8859 Jan, [facility] [id number] [place] [address] 72361- 6809 Jan, [facility] [id number] [place] [address] 53011- 3105 28 Dec, 2015 [facility] [address] [address]- 0165 23 Dec, 2015 Paranoid schizophrenia F20.0 [facility] [id number] [place] [address] 18522- 5852 16 Dec, 2015 Paranoid schizophrenia F20.0 and Depression with anxiety F41.8 [facility] [id number] [place] [address] 07575- 3503 Nov, [facility] [id number] [place] [address] 09737- 8689 Nov, Paranoid schizophrenia F20.0 [facility] [id number] [place] [address] 20132- 1014 Nov, Paranoid schizophrenia F20.0 and Depression with anxiety F41.8 [facility] [id number] [place] [address] 11413- 2421 Nov, Type 2 diabetes mellitus without complication, without long- term current use of insulin E11.9 ; Paranoid schizophrenia F20.0 ; Chronic obstructive pulmonary disease, unspecified COPD type J44.9 ; Morbid obesity due to excess calories E66.01 and Parkinsonian tremor G20 [facility] [address] [address]- 8376 Nov, [facility] [address] [place] [address] 37059- 6578 Oct, Paranoid schizophrenia F20.0 [facility] [address] [place] [address] 42818- 4003 Oct, Paranoid schizophrenia F20.0 [facility] [id number] [place] [address] 08833- 9149 Oct, Paranoid schizophrenia F20.0 and Depression with anxiety F41.8 [facility] [address] [place] [address] 17443- 5110 Oct, [facility] [id number] [place] [address] 94068- 1394 Oct, Paranoid schizophrenia F20.0 and Depression with anxiety F41.8 [place] [id number] [place] [address] 70419- 5461 Oct, Nasal sore J34.89 [place] [id number] [place] [address] 60842- 9273 Oct, Type 2 diabetes mellitus without complication, without long- term current use of insulin E11.9 ; Depression with anxiety F41.8 ; Hypothyroidism, unspecified type E03.9 and History of lupus Z87.39 [place] [address] 58564- 5386 Oct, [place] [id number] [place] [address] 91734- 0519 Oct, Type 2 diabetes mellitus without complication, [...] edema R60.9 and History of lupus Z87.39 [place] [id number] [place] [address] 86680- 3038 Feb, [place] [id number] [place] [address] 22641- 7260 Jan, [place] [id number] [place] [address] 54221- 1069 Jan, [place] [id number] [place] [address] 04355- 1922 Jan, [place] [address] 74212- 2546 Dec, [facility] [id number] [address]- 7069 Nov, [facility] [address] [facility] [id number] [place] [address]- 2734 Nov, [facility] [id number] [address]- 6558 Oct, [facility] [address] [place] [address], [place]- 0143 Oct, [facility] [id number] [place] [address], [place] [address]- 4707 Oct, [facility] [address] [place] [address], [place] [address]- 9766 Sep, Allergic rhinitis 477.9 [facility] [address] [place] [address], [place] [address]- 6374 Sep, Rhinitis, allergic 477.9 [facility] [address] [address]- 6853 Sep, Rhinitis, allergic 477.9 [facility] [address] [address]- 6726 Sep, [facility] [id number] [address]- 2045 August, [facility] [address] [address]- 0017 August, [facility] [id number]- 7152 August, [facility] [address] [address]- 0559 Jul, [facility] [id number] 3963 Jul, [facility] [address] [address]- 4485 13 Jul, 2014 [facility] [place] [facility] [address] [id number] [place] [address]- 9518 16 Jun, 2014 [facility] [place] [facility] [address] [id number] [place] [address]- 6796 16 Jun, 2014 [facility] [place] [facility] [address] [id number] [place] [address]- 6141 Jun, [facility] [place] [facility] [address] [id number] [place] [address]- 0199 Jun, [facility] [place] [facility] [address] [id number] [place] [address]- 5740 Jun, [facility] [place] [facility] [address] [id number] [place] [address]- 8890 Jun, [facility] [place] [facility] [address] [id number] [place] [address]- 9797 Jun, [facility] [place] [facility] [address] [id number] [place] [address] Jun, [facility] [place] [facility] [address] [id number] [place] [address] May, [facility] [place] [facility] [address] [id number] [place] [address] May, [facility] [place] [facility] [address] [id number] [place] [address] May, [facility] [place] [facility] [address] [id number] [place] [address] May, [facility] [place] [facility] [address] [id number] [place] [address] Apr, [facility] [place] [facility] [address] [id number] [place] Mar, [facility] [place] [facility] [address] [id number] [place] [address] Mar, [facility] [place] [facility] [address] [id number] [place] [address] Mar, [facility] [place] [facility] [address] [id number] [place] [address] Mar, [facility] [place] [facility] [address] [id number] [place] [address] Mar, [facility] [place] [facility] [address] [id number] [place] [address] Mar, [facility] [place] [facility] [address] [id number] [place] [address] Mar, [facility] [place] [facility] [address] [id number] [place] [address] Mar, [facility] [place] [facility] [address] [id number] [place] [address] Mar, [facility] [place] [facility] [address] [id number] [place] [address] Feb, [facility] [place] [facility] [address] [id number] [place] [address] Feb, [facility] [place] [facility] [address] [id number] [place] [address] Feb, [facility] [place] [facility] [address] [id number] [place] [address] 17 Feb, 2014 [facility] [place] [facility] [address] [address] [id number] [place] [address] 14 Feb, 2014 [facility] [place] [facility] [address] [id number] [place] [address] 14 Feb, 2014 [facility] [place] [facility] [address] [id number] [place] [address] Feb, [facility] [place] [facility] [address] [id number] [place] [address] Feb, [facility] [place] [facility] [address] [id number] [place] [address] 23 Jan, 2014 [facility] [place] [facility] [address] [id number] [place] [address] 23 Jan, 2014 [facility] [place] [facility] [address] [id number] [place] [address] 9[address] 16 Jan, 2014 [facility] [place] [facility] [address] [id number] [place] [address] 8574 16 Jan, 2014 [facility] [place] [facility] [address] [id number] [place] [address] 1656 15 Jan, 2014 [facility] [place] [facility] [address] [id number] [place] [address] 1991 15 Jan, 2014 [facility] [place] [facility] [address] [id number] [place] [address] 0[address] 14 Jan, 2014 [facility] [place] [facility] [address] [id number] [place] [address] 14 Jan, 2014 [facility] [place] [facility] [address] [id number] [place] [address] 3637 14 Jan, 2014 [facility] [place] [facility] [address] [id number] [place] [address] 0164 14 Jan, 2014 [facility] [place] [facility] [address] [id number] [place] [address] 2307 18 Dec, 2013 [facility] [place] [facility] [address] [id number] [place] [address] 6207 18 Dec, 2013 [facility] [place] [facility] [address] [id number] [address] 10 Dec, 2013 [facility] [place] [facility] [address] [id number] [place] [address] 9826 10 Dec, 2013 [facility] [place] [facility] [address] [id number] [place] [address] 0282 Nov, [facility] [place] [facility] [address] [id number] [place] [address] 1304 Nov, [facility] [place] [facility] [address] [id number] [place] [address] 6907 Nov, [facility] [place] [facility] [address] [id number] [place] [address] Nov, [facility] [place] [facility] [address] [id number] [place] [address] 7971 Nov, [facility] [place] [facility] [address] [id number] [place] [address] 1686 Oct, [facility] [place] [facility] [address] [id number] [place] [address] 3967 Oct, [facility] [place] [facility] [address] [id number] [place] [address] 6361 Oct, [facility] [place] [facility] [address] [id number] [place] [address] 1273 Oct, [facility] [place] [facility] [address] [id number] [place] [address] 3123 Sep, [facility] [place] [facility] [address] [id number] [place] [address] 2998 Sep, [facility] [place] [facility] [address] [id number] [place] [address] Sep, [facility] [place] [facility] [address] [id number] [place] [address] 1018 Sep, [facility] [place] [facility] [address] [id number] [place] [address] 0123 Sep, [facility] [place] [facility] [address] [id number] [place] [address] 9625 Sep, [facility] [place] [facility] [address] [id number] [place] [address] 8467 Sep, [facility] [place] [facility] [address] [id number] [place] [address] 5005 Sep, [facility] [place] [facility] [address] [id number] [place] [address] 7867 August, [facility] [place] [facility] [address] [id number] [place] [address] 9172 August, [facility] [place] [facility] [address] [id number] [place] [address] 8001 August, [facility] [place] [facility] [address] [id number] [place] [address] 1546 August, [facility] [place] [facility] [address] [id number] [place] [address] 3414 August, [facility] [address] [id number] [place] [address] 9535 August, [facility] [place] [facility] [address] [id number] [place] [address] 1599 August, [facility] [address] [id number] [place] [address] 17[address] Jul, [facility] [place] [facility] [address] [id number] [place] [address] 8243 Jul, [facility] [place] [facility] [address] [id number] [place] [address] 4360 Jul, [facility] [place] [facility] [address] [id number] [place] [address] 4003 Jul, [facility] [place] [facility] [address] [id number] [place] [address] 7833 Jul, [facility] [place] [facility] [address] [id number] [place] [address] 3405 Jul, [facility] [place] [facility] [address] [id number] [place] [address] 4597 Jul, [facility] [place] [facility] [address] [id number] [place] [address] 5092 Jul, [facility] [place] [facility] [address] [id number] [place] [address] 5822 Jul, [facility] [place] [facility] [address] [id number] [place] [address] 3608 Jul, [facility] [place] [facility] [address] [id number] [place] [address]- 4454 Jul, [facility] [place] [facility] [address] [id number] [place] [address] Jul, [facility] [place] [facility] [address] [facility] [id number] [place] [address] 2620 Jun, [facility] [place] [facility] [address] [id number] [place] [address] 1824 Jun, [facility] [place] [facility] [address] [id number] [place] [address] 8418 Jun, [facility] [place] [facility] [address] [facility] [id number] [place] [address]- 6381 Jun, [facility] [place] [facility] [address] [facility] [id number] [place] [address] 3434 Jun, [facility] [place] [facility] [address] [id number] [place] [address] 1053 May, [facility] [place] [facility] [address] [id number] [place] [address]- 4587 May, [facility] [place] [facility] [address] [facility] [id number] [place] [address] 2062 May, [facility] [place] [facility] [address] [facility] [id number] [place] [address]- 8564 May, [facility] [place] [facility] [address] [facility] [id number] [place] [address]- 7640 May, [facility] [place] [facility] [address] [id number] [place] [address]- 1543 May, [facility] [place] [facility] [address] [facility] [id number] [place] [address]- 1610 May, [facility] [place] [facility] [address] [facility] [id number][place] [address] 9703 May, [facility] [place] [facility] [address] [id number] [place] [address]- 3197 Mar, [facility] [place] [facility] [address] [id number] [place] [address] Mar, [facility] [place] [facility] [address] [id number] [place] [address]- 9938 Mar, [facility] [place] [facility] [address] [id number] [place] [address]- 4045 Mar, [facility] [place] [facility] [address] [id number] [place] [address]- 1295 Mar, [facility] [place] [facility] [address] [id number] [place] [address]- 7770 Mar, [facility] [address] [id number] [place] [address]- 9081 Feb, [facility] [place] [facility] [address] [id number] [place] [address]- 7620 Feb, [facility] [place] [facility] [address] [id number] [place] [address]- 5927 Jan, [facility] [place] [facility] [address] [id number] [place] [address]- 4628 Jan, [facility] [place] [facility] [address] [id number] [place] [address]- 9344 Jan, [facility] [place] [facility] [address] [id number], [place] [address] 5411 Jan, [facility] [place] [facility] [address] [id number] [place] [address]- 8765 Jan, [facility] [place] [facility] [address] [id number] [place] [address]- 5823 Jan, [facility] [place] [facility] [address] [id number], [place] [address] 5347 Jan, [facility] [place] [facility] [address] [id number][place] [address]- 2546 Jan, [facility] [place] [facility] [address] [id number] [place] [address]- 6940 Jan, [facility] [place] [facility] [address] [id number] [place] [address]- 8870 Jan, [facility] [place] [facility] [address] [id number] [place] [address]- 1630 Dec, [facility] [place] [facility] [address] [id number] [place] [address]- 9426 Nov, [facility] [place] [facility] [address] [id number] [place] [address]- 5974 Nov, [facility] [place] [facility] [address] [id number] [place] [address]- 3860 Nov, [facility] [place] [facility] [address] [id number] [place] [address]- 2394 Oct, [facility] [place] [facility] [address] [id number] [place] [address]- 2162 Oct, [facility] [place] [facility] [address] [id number] [place] [address]- 4566 August, [facility] [place] [facility] [address] [id number] [place] [address]- 4330 Apr, [facility] [place] [facility] [address] [id number] [place] [address]- 0115 Apr, [facility] [place] [facility] [address] [id number] [place] [address]- 9200 Feb, [facility] [place] [facility] [address] [id number] [place] [address]- 6461 Feb, [facility] [place] [facility] [address] [id number] [place] [address]- 3589 Dec, [facility] [place] [facility] [address] [id number] [place] [address]- 1932 Dec, [facility] [place] [facility] [address] [id number] [place] [address] Oct, [facility] [address] [facility] [id number][place] [address]50 Oct, [facility] [address] [facility] [id number][place] [address]- 5839 Oct, [place] [address] [facility] [id number][place] [address] 0911 Jul, IMMUNIZATIONS No Known Immunizations SOCIAL HISTORY Never Assessed REASON FOR VISIT Diabetes---Jennifer,ANTONIA, pt. states at night time feels like she has bugs crawling up her leg, numbness and tingling in left hand PLAN OF CARE Activity Details Follow Up 3 Months Reason:CHM VITAL SIGNS Height 57 in 2016-12-04 Weight 224.4 lbs 2016-12-04 Temperature 97.7 degrees Fahrenheit 2016-12-04 Heart Rate 72 bpm 2016-12-04 Respiratory Rate 20 2016-12-04 BMI 48.55 kg/m2 2016-12-04 Blood pressure systolic 126 mmHg 2016-12-04 Blood pressure diastolic 82 mmHg 2016-12-04 MEDICATIONS Medication Instructions Dosage Frequency Start Date End Date Duration Status Invega Sustenna 234 MG/1.5ML Intramuscular Once a month, on the 10th of every month 1.5 ml 30 days Active Neurontin 600 MG Orally 2 times a day 1 tablet 12h Nov, 90 days Active Sertraline HCl 100 MG Orally Once a day take with 50mg (150mg a day) 1 tablet 30 days Active Januvia 50MG TAKE ONE TABLET BY MOUTH ONCE DAILY 90 Active Metformin HCl 1000 MG Orally Twice a day 1 tablet with meals 12h Mar, 90 days Active Tizanidine HCl 4 MG Orally 3 times a day 1 1/2 tablets 8h Active Breo Ellipta 100-25 MCG/INH Inhalation Once a day 1 puff 24h Active Spironolactone 50MG Orally Once a day 1 tablet 24h 30 Active Myrbetriq 50 MG Orally Once a day 1 tablet 24h 90 days Active Norvasc 10 mg Orally Once a day 1 tablet 24h 30 Active Levothyroxine Sodium 175 MCG Orally Once a day 1 tablet 24h Active Pravastatin Sodium 20 MG Orally Once a day 1 tablet 24h Active Nexium 40 mg Orally Once a day 1 capsule 24h 90 days Active Ventolin HFA 108 (90 Base) MCG/ACT Inhalation every 4 hrs 2 puffs as needed 4h 29 Feb, 2016 90 days Active Cetirizine HCl 10MG TAKE ONE TABLET BY MOUTH ONCE DAILY 30 Active Sertraline HCl 50 MG Orally Once a day take with 100mg tablet 1 tablet 12 Oct, 2016 30 day(s) Active HydrOXYzine HCl 50 MG Orally every 8 hrs 1-2 tablet as needed 8h 30 days Active Premarin 0.625 MG/GM insert 0.5 gram by vaginal route twice weekly Active Ambien 5 MG Orally Once a day 1 tablet at bedtime 24h 06 Oct, 2016 30 days Active Lisinopril 2.5 MG Orally Once a day 1 tablet 24h Nov, 90 days Active Ibuprofen 800MG TAKE ONE TABLET BY MOUTH THREE TIMES DAILY NEEDED 90 Active Restasis 0.05 % instill 1 drop into affected eye(s) by ophthalmic route 2 times per day Oct, Active Plaquenil 200 mg Orally Once a day 1 tablet with food or milk 24h 30 Active Clonazepam 0.25 MG Orally Twice a day 1 tablet on the tongue and allow to dissolve 12h Jun, Active Loxapine Succinate 25 MG Orally 4 times a day PRN 1 capsule Active RESULTS Name Result Date Reference Range A1C (IN HOUSE) 2016-12-04 A1C IN HOUSE 7.0 4.3 - 5.6 % Previous A1c 7.0 Lot [id number] Exp date PROCEDURES Procedure Date Ordered Result Body Site GLYCATED HEMOGLOBIN TEST Dec 04, 2016 [facility] VISIT ESTABLISHED PATIENT Dec 04, 2016 INSTRUCTIONS MEDICATIONS ADMINISTERED No Known Medications [...]
--- OUTSIDE RECORDS SUMMARY | 2018-09-02 14:17 | XMS REPORT ---
Author Author STRICKLANDSOTO Carias Organization [facility] Address [address] [place] [address] Care Team Providers Care Sand Cutter Operator Name Role Phone STRICKLANDSOTO Carias Unavailable PROBLEMS Type Condition ICD9-CM Code [id number] Code Onset Dates Condition Status SNOMED Code Problem Seasonal allergic rhinitis due to other allergic trigger J30.89 Active 151546097 Problem Primary insomnia F51.01 Active 2625730 Problem Schizoaffective disorder, depressive type F25.1 Active 71284366 Problem Other seasonal allergic rhinitis J30.2 Active 118885747 Problem Depression with anxiety F41.8 Active 548010221 Problem Other allergic rhinitis J30.89 Active 576046667 Problem Morbid obesity due to excess calories E66.01 Active 649759529 Problem Chronic obstructive pulmonary disease, unspecified COPD type J44.9 Active 55299149 Problem DM neuro manif type II E11.49 Active 92489897 Problem Other elevated white blood cell (WBC) count D72.828 Active 645120011 Problem Tobacco abuse Z72.0 Active 776687375 Problem Menopausal syndrome (hot flashes) N95.1 Active 937594682 Problem Parkinsonian tremor G20 Active 868772371 Problem Type 2 diabetes mellitus without complication, without long-term current use of insulin E11.9 Active 226473395 Problem Chronic pain syndrome G89.4 Active 952791495 Problem Paranoid schizophrenia F20.0 Active 22946107 Problem Peripheral edema R60.9 Active 800392477 Problem OAB (overactive bladder) N32.81 Active 540198115 Problem History of lupus Z87.39 Active 531680409 Problem ARIAS on CPAP G47.33 Active 08261203 Problem Hypothyroidism, unspecified type E03.9 Active 72523048 Problem Gastroesophageal reflux disease without esophagitis K21.9 Active 197060637 ALLERGIES No Information SOCIAL HISTORY Never Assessed PLAN OF CARE VITAL SIGNS MEDICATIONS Unknown Medications RESULTS No Results PROCEDURES No Known procedures IMMUNIZATIONS No Known Immunizations MEDICAL (GENERAL) HISTORY Type Description Date Medical History Lupus- cutaneous per patient Medical History Schizophrenia Medical History COPD Medical History Hx of Depression Medical History Diabetes Type 2 Medical History 05/2016--ECHO- EF 60% w/ diastolic dysfunction, left ventricular hypertrophy-mild mitral/tric. regurg. est. 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 Byers on November 03 in addition to EGD Hospitalization History several hospitalizations for psychosis/mental illness , last one in [place] at [facility] 4 years ago
--- OUTSIDE RECORDS SUMMARY | 2018-09-02 14:18 | XMS REPORT ---
Author Author SOTO STRICKLAND Organization [facility] Address [address] [place] [address] Care Team Providers Care Patient Experience Coordinator Name Role Phone STRICKLANDTRINH CariasELE Unavailable PROBLEMS Type Condition ICD9-CM Code RPE34-YZ Code Onset Dates Condition Status SNOMED Code Problem Morbid obesity due to excess calories E66.01 Active 422614863 Problem Type 2 diabetes mellitus without complication, without long-term current use of insulin E11.9 Active 694041050 Problem Paranoid schizophrenia F20.0 Active 90697962 Problem Other elevated white blood cell (WBC) count D72.828 Active 903475551 Problem Primary insomnia F51.01 Active 4007039 Problem Gastroesophageal reflux disease without esophagitis K21.9 Active 505341819 Problem ARIAS on CPAP G47.33 Active 23600531 Problem Schizoaffective disorder, depressive type F25.1 Active 67135432 Problem Seasonal allergic rhinitis due to other allergic trigger J30.89 Active 937532919 Problem History of lupus Z87.39 Active 561256329 Problem Peripheral edema R60.9 Active 858890565 Problem OAB (overactive bladder) N32.81 Active 720322861 Problem Depression with anxiety F41.8 Active 658765377 Problem Parkinsonian tremor G20 Active 358509638 Problem Chronic pain syndrome G89.4 Active 865015373 Problem Hypothyroidism, unspecified type E03.9 Active 86857361 Problem Chronic obstructive pulmonary disease, unspecified COPD type J44.9 Active 37863100 ALLERGIES Substance Reaction Event Type Date Status Penicillins Unknown Non Drug Allergy Apr, Active Sulfa(sulfonamide Antibiotics) Unknown Non Drug Allergy Apr, Active SOCIAL HISTORY No smoking Hx information available PLAN OF CARE Activity Details Follow Up prn Reason: VITAL SIGNS Height 57 in 2016-04-27 Weight 213.6 lbs 2016-04-27 Temperature 97.2 degrees Fahrenheit 2016-04-27 Heart Rate 80 bpm 2016-04-27 Respiratory Rate 20 2016-04-27 BMI 46.22 kg/m2 2016-04-27 Blood pressure systolic 130 mmHg 2016-04-27 Blood pressure diastolic 84 mmHg 2016-04-27 MEDICATIONS Medication Instructions Dosage Frequency Start Date End Date Duration Status Spironolactone 50MG Orally Once a day 1 tablet 24h 90 days Active Ventolin HFA 108 (90 Base) MCG/ACT Inhalation every 4 hrs 2 puffs as needed 4h Feb, 90 days Active Sertraline HCl 100 MG Orally Once a day 1 tablet 24h Active Metformin HCl 1000 MG Orally Twice a day 1 tablet with meals 12h Mar, 90 days Active Claritin 10 mg Orally Once a day 1 tablet 24h Active Januvia 25 MG Orally Once a day 2 tablets 24h Mar, 90 days Active Levothyroxine Sodium 150 MCG Orally Once a day 1 tablet 24h 90 days Active Pravastatin Sodium 10 MG Orally Once a day 1 tablet 24h 30 Active Myrbetriq 50 MG Orally Once a day 1 tablet 24h 90 days Active Ambien 5 mg Orally Once a day 1 tablet at bedtime 24h 30 days Active Nexium 40 mg Orally Once a day 1 capsule 24h 90 days Active Vistaril 25MG Orally every 8 hrs 1 capsule as needed 8h 30 Active Breo Ellipta 100-25 mcg/dose Inhalation Once a day inhale 1 puff by inhalation route once daily at the same time each day 24h Jun,Mar 90 days Active Spironolactone 50 mg Orally Once a day 1 tablet 24h Active Gabapentin 600 MG Orally Three times a day 1 tablet 8h 90 days Active Claritin 10MG Orally Once a day 1 tablet 24h 90 days Active Suvorexant 10 mg Orally Once a day 1 tablet at bedtime as needed 24h Mar Active Premarin 0.625 MG/GM insert 0.5 gram by vaginal route twice weekly Active Tizanidine HCl 4 MG Orally 3 times a day 1 1/2 tablets 8h Active Ibuprofen 600 MG Orally Three times a day 1 tablet 8h Mar,Jun 90 days Active Azithromycin 250 MG Orally Once a day 2 tablets on the first day, then 1 tablet daily for 4 days 24h Apr, Apr, 5 day(s) Active Invega Sustenna 234 MG/1.5ML Intramuscular Once a month, on the 10th of every month 1.5 ml Mar, Active Trazodone HCl 150 MG Orally Once a day 1 tablet at bedtime as needed 24h Active Restasis 0.05 % instill 1 drop into affected eye(s) by ophthalmic route 2 times per day Oct, Active Vistaril 25 MG Orally every 8 hrs 1 capsule as needed 8h Active metformin 1,000 mg orally 2 times a day 1 tablet 12h 12 Jun, 2014 Active Norvasc 10 mg Orally Once a day 1 tablet 24h 30 Active RESULTS No Results PROCEDURES Procedure Date Ordered Related Diagnosis Body Site [facility] VISIT ESTABLISHED PATIENT Apr 27, 2016 Office Visit, Est Pt., Level 3 Apr 27, 2016 IMMUNIZATIONS No Known Immunizations
--- OUTSIDE RECORDS SUMMARY | 2018-09-02 14:18 | XMS REPORT ---
Author Author STRICKLANDSOTO Carias Organization [facility] Address [address] [place] [address] Care Team Providers Care Software Development Project Manager Name Role Phone STRICKLANDSOTO Carias Unavailable PROBLEMS Type Condition ICD9-CM Code NPW26-VR Code Onset Dates Condition Status SNOMED Code Problem OAB (overactive bladder) N32.81 Active 821501040 Problem Chronic pain syndrome G89.4 Active 663487396 Problem Depression with anxiety F41.8 Active 588174894 Problem Type 2 diabetes mellitus without complication, without long-term current use of insulin E11.9 Active 104144359 Problem Paranoid schizophrenia F20.0 Active 29801490 Problem Other seasonal allergic rhinitis J30.2 Active 200081663 Problem Gastroesophageal reflux disease, esophagitis presence not specified K21.9 Active 611767996 Problem Morbid obesity due to excess calories E66.01 Active 977231010 Problem Chronic obstructive pulmonary disease, unspecified COPD type J44.9 Active 89835274 Problem History of lupus Z87.39 Active 413663571 Problem Peripheral edema R60.9 Active 942972703 Problem Parkinsonian tremor G20 Active 489070586 Assessment Type 2 diabetes mellitus without complication, without long-term current use of insulin E11.9 Oct, Active 809133316 Problem Hypothyroidism, unspecified type E03.9 Active 40614727 ALLERGIES Substance Reaction Event Type Date Status Penicillins Unknown Non Drug Allergy Oct, Active Sulfa(sulfonamide Antibiotics) Unknown Non Drug Allergy Oct, Active SOCIAL HISTORY No smoking Hx information available PLAN OF CARE VITAL SIGNS Height 57 in 2015-10-25 Weight 221.2 lbs 2015-10-25 Heart Rate 80 bpm 2015-10-25 Respiratory Rate 18 2015-10-25 BMI 47.86 kg/m2 2015-10-25 Blood pressure systolic 130 mmHg 2015-10-25 Blood pressure diastolic 88 mmHg 2015-10-25 MEDICATIONS Medication Instructions Dosage Frequency Start Date End Date Duration Status Loxapine Succinate 25 MG Orally 4 times a day PRN 1 capsule Active trazodone 150 mg 1 Daily by Oral route 1 time per day Take at HS for sleep Jun, Active Tizanidine HCl 4 MG Orally 3 times a day 1 1/2 tablets 8h Active Gabapentin 600 MG Orally Three times a day 1 tablet 8h Active cyclobenzaprine 10 mg 1 tablet 2 times per day PRN Jun, Active sertraline 100 mg take 1 tablet (100 mg) by oral route once daily 24h Oct, Active metformin 1,000 mg oral, must be seen for more refills 2 times a day 1 tablet 12h Jun, Active Invega 9 MG Orally Once a day 1 tablet 24h Active Spironolactone 50 MG Orally, must be seen for more refills Once a day 1 tablet 24h Active Nexium 40 MG Orally Once a day 1 capsule 24h Active Ropinirole HCl 0.25 MG Orally Three times a day x 2 weeks then increase to two tablets three times daily 1 tablet Active Restasis 0.05 % instill 1 drop into affected eye(s) by ophthalmic route 2 times per day Oct, Active Norvasc 10 MG Orally Once a day 1 tablet 24h Active Myrbetriq 50 MG Orally Once a day 1 tablet 24h Active Levothyroxine Sodium 150 MCG TAKE 1 TABLET BY ORAL ROUTE 1 TIME PER DAY 30 Active Claritin 10 MG Orally Once a day 1 tablet 24h Active Breo Ellipta 100-25 mcg/dose Inhalation, must be seen for more refills Once a day inhale 1 puff by inhalation route once daily at the same time each day 24h Jun, Active RESULTS Name Result Date Reference Range A1C (IN HOUSE) 2015-10-25 A1C IN HOUSE 7.3 4.3 - 5.6 % Previous A1c n/a Lot [id number] Exp date 07/2017 PROCEDURES Procedure Date Ordered Related Diagnosis Body Site GLYCATED HEMOGLOBIN TEST October 25, 2015 [facility] VISIT ESTABLISHED PATIENT October 25, 2015 Office Visit, Est Pt., Level 4 October 25, 2015 IMMUNIZATIONS No Known Immunizations
--- OUTSIDE RECORDS SUMMARY | 2018-09-02 14:18 | XMS REPORT ---
Author Author SOTO STRICKLAND Organization [employer] Address Unknown Phone Unavailable Care Team Providers Care Diesel Engine Engineer Name Role Phone SOTO STRICKLAND CP Unavailable [...] Other seasonal allergic rhinitis J30.2 Active Assessment Nasal sore J34.89 Active Problem History of lupus Z87.39 Active Problem Peripheral edema R60.9 Active Problem Parkinsonian tremor G20 Active Medications No Known Medications Results No Known Results Summary Purpose [employer] Submission
--- OUTSIDE RECORDS SUMMARY | 2018-09-02 14:18 | XMS REPORT ---
Author Author UMESH PINEDA [facility] [place] eClinicalWorks Address Unknown Phone Unavailable Care Team Providers Care Motel Manager Name Role Phone UMESH PINEDA CP Unavailable [...] Start Date End Date Status Dosage Spironolactone [facility] [address]-71 50 mg Orally Once a day 1 tablet trazodone [facility] [place] [address]-66 150 mg July 05, 2013 1 Daily by Oral route 1 time per day Take at for sleep Nexium [facility] [place] [address]-07 40 MG Orally Once a day 1 capsule Premarin [facility] 34087071638 0.625 MG/GM insert 0.5 gram by vaginal route twice weekly Breo Ellipta [facility] [place] [address]-49 100-25 mcg/dose Inhalation, must be seen for more refills Once a day July 05, 2014 inhale 1 puff by inhalation route once daily at the same time each day Pravastatin Sodium [facility] [place] [address]-86 10 MG Orally Once a day September 21, 2014 1 tablet Tizanidine HCl [facility] [place] [address]-33 4 MG Orally 3 times a day 1 1/2 tablets Norvasc [facility] [place] [address]-11 10 MG Orally Once a day 1 tablet Invega Sustenna [facility] [place] [address]-52 156 MG/ML Intramuscular once on OctoberNovember 13, 2015 1 drop Restasis [facility] [place] [address]-92 0.05 % November 15, 2012 instill 1 drop into affected eye(s) by ophthalmic route 2 times per day Trazodone HCl [facility] [place] [address]-34 150 MG Orally Once a day Dec 04, 2015 1 tablet at bedtime as needed Triamcinolone Acetonide [facility] 14694268424 0.5 % APPLY TOPICALLY TWICE DAILY ProAir HFA [facility] [place] [address]-06 90 mcg/actuation Inhalation every 4 hrs Nov 2 puffs as needed Myrbetriq [facility] [place] [address]-37 50 MG Orally Once a day 1 tablet Claritin [facility] [place] [address]-04 10 MG Orally Once a day 1 tablet sertraline [facility] 0 100 mg Once a day November 15, 2012 take 1 tablet ( 100 mg) by oral route once daily Sertraline HCl [facility] [place] [address]-25 100 MG Orally Once a day Dec 04, 2015 1 tablet Levothyroxine Sodium [facility] [place] 00904807902 150 MCG TAKE 1 TABLET BY ORAL ROUTE 1 TIME PER DAY Gabapentin [facility] [place] [address]-42 600 MG Orally Three times a day 1 tablet metformin [facility] [place] [address]-12 1,000 mg orally 2 times a day July 05, 2014 1 tablet Mupirocin [facility] [place] [address]-35 2 % Externally Three times a day Apr 20, 2014 1 Application by Nasal route 2 times per day to each nare--disp 22 gram tube Procedures Procedure Coding System Code Date THER/PROPH/DIAG INJ, SC/IM CPT-4 30243 Dec 18, 2015 INVEGA (PT'S OWN) CPT-4 31496 Dec 18, 2015 Results No Known Results Summary Purpose eClinicalWorks Submission
--- OUTSIDE RECORDS SUMMARY | 2018-09-02 14:18 | XMS REPORT ---
Author Author EDWINUMESH CASIANO [facility] Address [address] [place] [address] Care Team Providers Care Product Marketing Director Name Role Phone UMESH PINEDA Unavailable PROBLEMS Type Condition ICD9-CM Code [id number] Code Onset Dates Condition Status SNOMED Code Problem Other allergic rhinitis J30.89 Active 437658055 Problem Tobacco abuse Z72.0 Active 314246690 Problem Other seasonal allergic rhinitis J30.2 Active 107401742 Problem COPD exacerbation J44.1 Active 167206297 Problem OAB (overactive bladder) N32.81 Active 715602661 Problem Hypothyroidism (acquired) E03.9 Active 086726193 Problem Morbid obesity due to excess calories E66.01 Active 891479802 Problem Chronic obstructive pulmonary disease, unspecified COPD type J44.9 Active 92215013 Problem Migraine without aura and without status migrainosus, not intractable G43.009 Active 263706045 Problem Gastroesophageal reflux disease, esophagitis presence not specified K21.9 Active 875354269 Problem Essential hypertension I10 Active 68793485 Problem Dyslipidemia E78.5 Active 270580875 Problem Chronic pain syndrome G89.4 Active 743729083 Problem Paranoid schizophrenia F20.0 Active 69482140 Problem Type 2 diabetes mellitus without complication, without long-term current use of insulin E11.9 Active 829846220 Problem History of lupus Z87.39 Active 526092428 Problem Schizoaffective disorder, depressive type F25.1 Active 07637791 Problem Primary insomnia F51.01 Active 3705743 Problem Gastroesophageal reflux disease without esophagitis K21.9 Active 423703466 Problem DM neuro manif type II E11.49 Active 75142190 Problem Depression with anxiety F41.8 Active 606595065 Problem Seasonal allergic rhinitis due to other allergic trigger J30.89 Active 945160572 Problem Menopausal syndrome (hot flashes) N95.1 Active 830549016 ALLERGIES No Information ENCOUNTERS Encounter Location Date Diagnosis [facility] [id number] [place] [address] 58271- 3419 Nov, [facility] [address] 28181- 8196 Jun, [facility] [id number] [place] [address] 71965 -8629 Jun, Shortness of breath at rest R06.02 ; COPD exacerbation J44.1 and BMI 45.0-49.9, adult Z68.42 [facility] [id number] [place] [address] 02671- 5486 Jun, [facility] [address] 37919- 6115 Jun, Paranoid schizophrenia F20.0 ; Depression with anxiety F41.8 and BMI 45.0-49.9, adult Z68.42 [facility] [id number] [place] [address] 63869- 5925 Jun, Schizoaffective disorder, depressive type F25.1 [facility] [address] [id number] Jun, Dental caries K02.9 [facility] [id number] [place] [address] 56979- 6054 Jun, Paranoid schizophrenia F20.0 [facility] [id number] [place] [address] 63169- 8692 May, Migraine without aura and without status migrainosus, not intractable G43.009 ; DM neuro manif type II E11.49 and Type 2 diabetes mellitus without complication, without long-term current use of insulin E11.9 [facility] [id number] [place] [address] 98967- 0244 May, Migraine without aura and without status migrainosus, not intractable G43.009 [facility] [id number] [place] [address] 25672- 9979 May, Depression with anxiety F41.8 [facility] [address] [id number] May, [facility] [id number] [place] [address] 39855- 1934 May, [facility] [id number] [place] [address] 93856- 4820 May, [place] [id number] [place] [address] 60377- 1240 May, Hypothyroidism (acquired) E03.9 [place] [id number] [place] [address] 55562- 9141 May, Paranoid schizophrenia F20.0 [place] [id number] [place] [address] 09917- 0139 May, Type 2 diabetes mellitus without complication, [...] N32.81 and Controlled substance agreement signed Z79.899 [place] [address] [place] [address] 83884- 7823 May, Controlled substance agreement signed Z79.899 [place] [id number] [place] [address] 51051- 2869 Apr, [facility] [address] [place] [address] [id number] Apr, Dental examination Z01.20 [place] [id number] [place] [address] 04797- 8296 Apr, Paranoid schizophrenia F20.0 [facility] [id number] [place] [address] 60719- 2680 Apr, Hypertension, unspecified type I10 [facility] [id number] [place] [address] 12898- 2495 Apr, Paranoid schizophrenia F20.0 [facility] [id number] [place] [address] 69202- 4861 Apr, [facility] [id number] [place] [address] 73587- 2475 Apr, Tobacco abuse Z72.0 [facility] [id number] [place] [address] 61969- 8919 Apr, [facility] [id number] [place] [address] 72111- 1210 Mar, [facility] [id number] [place] [address] 88420- 3223 Mar, Paranoid schizophrenia F20.0 and BMI 45.0-49.9, adult Z68.42 [facility] [id number] [place] [address] 82954- 7491 Mar, Schizoaffective disorder, depressive type F25.1 [facility] [id number] [place] [address] 08220- 2931 Mar, [facility] [id number] [place] [address] 01347- 4552 Mar, Hypothyroidism, unspecified type E03.9 [facility] [id number] [place] [address] 41214- 4580 Mar, Schizoaffective disorder, depressive type F25.1 [facility] [address] [place] [address] 59647 -3169 Feb, Gastroenteritis K52.9 and BMI 45.0-49.9, adult Z68.42 [place] [id number] [place] [address] 82069- 7547 Feb, [place] [address] 59976- 2948 Feb, [place] [id number] [place] [address] 79921- 3123 Feb, [address] 69934- 2887 Feb, [address] 87024- 0478 Feb, Paranoid schizophrenia F20.[address] 72622- 6799 Feb, Gastroesophageal reflux disease without esophagitis K21.9 ; Other seasonal allergic rhinitis J30.2 ; Other allergic rhinitis J30.89 ; Tobacco abuse Z72.0 and BMI 40.0-44.9, adult Z68.41 [place] [id number] [place] [address] 29411- 3529 Feb, Onychomycosis B35.1 ; Callus of foot L84 and DM neuro manif type II E11.49 [place] [id number] [place] [address] 29257- 9270 Jan, Chronic allergic rhinitis J30.9 [place] [id number] [place] [address] 78021- 0558 Jan, [address] 53825- 1143 Jan, Schizoaffective disorder, depressive type F25.[address] 52974- 1958 Jan, [facility] [address] [place] [id number] [place] [address] 66354 -8352 07 Jan, 2017 Sore throat J02.9 and Seasonal allergic rhinitis due to other allergic trigger J30.89 [facility] [address] [place] [address] 50858- 3751 04 Jan, 2017 [facility] [id number] [place] [address] 77698- 3453 Jan, [facility] [id number] [place] [address] 00717 -6923 Jan, Chronic allergic rhinitis J30.9 [facility] [id number] [place] [address] 51359- 5579 Dec, Paranoid schizophrenia F20.0 ; Primary insomnia F51.01 and Schizoaffective disorder, depressive type F25.1 [place] [id number] [place] [address] 62847- 3290 21 Dec, 2016 Chronic pain syndrome G89.4 ; Cervicalgia of occipito- atlanto-axial region M54.2 ; Menopausal syndrome (hot flashes) N95.1 and Encounter for immunization Z23 [facility] [id number] [place] [address] 24102- 4255 14 Dec, 2016 [place] [id number] [place] [address] 06800- 5618 13 Dec, 2016 [place] [id number] [place] [address] 05756- 3001 08 Dec, 2016 Paranoid schizophrenia F20.0 [facility] [id number] [place] [address] 85242- 0962 Dec, Schizoaffective disorder, depressive type F25.1 [facility] [id number] [place] [address] 13173- 3871 Nov, Hypothyroidism, unspecified type E03.9 [facility] [id number] [place] [address] 03087 -6109 Nov, Acute seasonal allergic rhinitis due to other allergen J30.89 [facility] [id number] [place] [address] 95167- 2995 Nov, [place] [address] [place] [address] 25013- 6662 Nov, Hypothyroidism, unspecified type E03.9 and Other elevated white blood cell (WBC) count D72.828 [place] [id number] [place] [address] 73038- 9256 Nov, Schizoaffective disorder, depressive type F25.1 [place] [id number] [place] [address] 34384- 3748 Nov, Paranoid schizophrenia F20.0 [place] [id number] [place] [address] 42404- 0271 Nov, Type 2 diabetes mellitus without complication, without long- term current use of insulin E11.9 ; Morbid obesity due to excess calories E66.01 and Chronic pain syndrome G89.4 [place] [id number] [place] [address] 08373- 5996 Oct, Paranoid schizophrenia F20.0 [place] [id number] [place] [address] 41061- 3985 Oct, [place] [id number] [place] [address] 62806- 9100 Oct, Schizoaffective disorder, depressive type F25.1 [place] [id number] [place] [address] 40780- 1873 Oct, Hypothyroidism, unspecified type E03.9 and Other elevated white blood cell (WBC) count D72.828 [place] [address] [place] [address] 37628- 6339 Oct, Morbid obesity due to excess calories E66.01 ; Chronic obstructive pulmonary disease, unspecified COPD type J44.9 ; History of lupus Z87.39 ; Hypothyroidism, unspecified type E03.9 ; Gastroesophageal reflux disease without esophagitis K21.9 ; Primary insomnia F51.01 and Chronic pain syndrome G89.4 [place] [id number] [place] [address] 39099- 2051 Sep, [facility] [address] [address]- 4152 Sep, [facility] [id number] [place] [address] 29817- 4487 Sep, [facility] [id number] [place] [address] 81400- 2268 Sep, Paranoid schizophrenia F20.0 [facility] [id number] [place] [address] 69621- 8500 Sep, [facility] [id number] [place] [address] 29896- 4739 Sep, Paranoid schizophrenia F20.0 [facility] [id number] [place] [address] 28399- 3217 Sep, [facility] [id number] [place] [address] 34055- 1310 August, Paranoid schizophrenia F20.0 [facility] [address] [place] [address] 95748- 3792 Jul, [facility] [id number] [place] [address] 91147- 8745 Jul, Type 2 diabetes mellitus without complication, without long- term current use of insulin E11.9 ; Morbid obesity due to excess calories E66.01 ; Depression with anxiety F41.8 ; Hypothyroidism, unspecified type E03.9 ; Seasonal allergic rhinitis due to other allergic trigger J30.89 ; Pain, dental K08.89 and Gastroesophageal reflux disease without esophagitis K21.9 [facility] [address] [place] [address] [id number] Jul, Dental examination Z01.20 [facility] [id number] [place] [address] 79367- 6152 07 Jul, 2016 Paranoid schizophrenia F20.0 [facility] [id number] [place] [address] 20637- 1776 13 Jun, 2016 Paranoid schizophrenia F20.0 and Depression with anxiety F41.8 [place] [id number] [place] [address] 58944- 0436 10 Jun, 2016 Paranoid schizophrenia F20.0 and Depression with anxiety F41.8 [place] [id number] [place] [address] 37159- 7023 09 Jun, 2016 [place] [address] 57932- 7705 Jun, [facility] [place] [id number] [place] [address] 54836 -8167 Jun, Seasonal allergic rhinitis due to other allergic trigger J30.89 [facility] [place] [id number] [place] [address] 64360 -0019 May, Sore throat J02.9 ; Other viral agents as the cause of diseases classified elsewhere B97.89 and Acute upper respiratory infection, unspecified J06.9 [place] [id number] [place] [address] 83339- 6941 May, Paranoid schizophrenia F20.0 and Depression with anxiety F41.8 [place] [id number] [place] [address] 70048- 9802 Apr, Other seasonal allergic rhinitis J30.2 [place] [id number] [place] [address] 69216- 1489 Apr, Paranoid schizophrenia F20.0 and Depression with anxiety F41.8 [facility] [place] [id number] [place] [address] 40335 -6628 Apr, Bronchitis J40 and Sore throat J02.9 [place] [id number] [place] [address] 74286- 6479 Apr, Type 2 diabetes mellitus without complication, without long- term current use of insulin E11.9 [facility] [place] [id number] [place] [address] 06720 -7310 Apr, Bronchitis J40 [place] [id number] [place] [address] 96711- 9732 Apr, [place] [id number] [place] [address] 49027- 9579 Apr, [place] [id number] [place] [address] 14050- 2170 Mar, Type 2 diabetes mellitus without complication, [...] R60.9 and Other seasonal allergic rhinitis J30.2 [place] [address] 25112- 3695 Mar, Paranoid schizophrenia F20.0 and Depression with anxiety F41.8 [place] [id number] [place] [address] 14787- 0767 Feb, [place] [id number] [place] [address] 40353- 0476 Feb, [place] [id number] [place] [address] 94964- 4966 Feb, [place] [id number] [place] [address] 68161- 5346 Feb, [place] [id number] [place] [address] 40298- 9652 Feb, Type 2 diabetes mellitus without complication, without long- term current use of insulin E11.9 ; ARIAS on CPAP G47.33 and Preoperative evaluation to rule out surgical contraindication Z01.818 [place] [id number] [place] [address] 82602- 2633 Feb, Paranoid schizophrenia F20.0 and Depression with anxiety F41.8 [facility] [address] [facility] [id number] [place] [address]- 3610 Jan, [facility] [address] [facility] [id number] [place] [address], [place] [address]- 8301 Jan, Paranoid schizophrenia F20.0 and Depression with anxiety F41.8 [facility] [id number] [place] [address], [place] [address]- 9704 Jan, [facility] [address] [facility] [id number] [place] [address], [place] [address]- 0394 Jan, Muscle strain T14.8 [facility] [address] [facility] [id number] [place] [address], [place] [address]- 5614 Jan, Paranoid schizophrenia F20.0 [facility] [id number] [place] [address], [place] [address]- 6392 Jan, [facility] [id number] [place] [address] 22128- 2982 Jan, Paranoid schizophrenia F20.0 and Depression with anxiety F41.8 [facility] [address] [facility] [id number] [place] [address], [place] [address]- 6504 Jan, [facility] [id number] [address]- 4551 Jan, [facility] [id number] [place] [address] 56973- 4748 28 Dec, 2015 [facility] [address] [facility] [id number] [address]- 0271 23 Dec, 2015 Paranoid schizophrenia F20.0 [facility] [address] [facility] [id number] [place] [address]- 9321 16 Dec, 2015 Paranoid schizophrenia F20.0 and Depression with anxiety F41.8 [facility] [address] [facility] [id number] [place] [address]- 7569 Nov, [place] [id number] [place] [address] 58300- 9806 Nov, Paranoid schizophrenia F20.0 [place] [id number] [place] [address] 92925- 8278 Nov, Paranoid schizophrenia F20.0 and Depression with anxiety F41.8 [place] [id number] [place] [address] 24731- 1673 Nov, Type 2 diabetes mellitus without complication, without long- term current use of insulin E11.9 ; Paranoid schizophrenia F20.0 ; Chronic obstructive pulmonary disease, unspecified COPD type J44.9 ; Morbid obesity due to excess calories E66.01 and Parkinsonian tremor G20 [place] [id number] [place] [address] 06269- 8772 Nov, [place] [id number] [place] [address] 13111- 4735 Oct, Paranoid schizophrenia F20.0 [place] [id number] [place] [address] 67686- 3425 Oct, Paranoid schizophrenia F20.0 [place] [id number] [place] [address] 83164- 9612 Oct, Paranoid schizophrenia F20.0 and Depression with anxiety F41.8 [place] [id number] [place] [address] 43749- 6250 Oct, [place] [id number] [place] [address] 80742- 8953 Oct, Paranoid schizophrenia F20.0 and Depression with anxiety F41.8 [place] [id number] [place] [address] 87942- 4295 Oct, Nasal sore J34.89 [place] [address] [place] [address] 59673- 0749 Oct, Type 2 diabetes mellitus without complication, without long- term current use of insulin E11.9 ; Depression with anxiety F41.8 ; Hypothyroidism, unspecified type E03.9 and History of lupus Z87.39 [facility] [id number] [place] [address] 60684- 7417 Oct, [facility] [id number] [place] [address] 17967- 1677 Oct, Type 2 diabetes mellitus without complication, [...] edema R60.9 and History of lupus Z87.39 [facility] [id number] [place] [address] 77368- 0059 Feb, [facility] [id number] [place] [address] 10528- 3584 Jan, [facility] [id number] [place] [address] 58903- 5865 Jan, [facility] [id number] [place] [address] 06257- 9416 Jan, [facility] [id number] [place] [address] 48742- 8836 Dec, [facility] [id number] [place] [address] 79508- 4975 Nov, [facility] [id number] [place] [address] 29342- 8876 Nov, [facility] [id number] [place] [address] 18637- 2546 Oct, [facility] [id number] [place] [address] 78755- 2483 Oct, [facility] [address] [facility] [id number] [place] [address]- 6375 Oct, [facility] [address] [facility] [id number] [place] [address]- 6810 Sep, Allergic rhinitis 477.9 [facility] [address] [facility] [id number] [place] [address]- 4641 Sep, Rhinitis, allergic 477.9 [facility] [address] [facility] [id number] [place] [address]- 0674 Sep, Rhinitis, allergic 477.9 [facility] [address] [facility] [id number] [place] [address]- 7311 Sep, [facility] [address] [facility] [id number] [place] [address]- 3614 August, [facility] [address] [facility] [id number] [place] [address]- 4569 August, [facility] [address] [facility] [id number] [place] [address]- 1426 August, [facility] [address] [facility] [id number] [place] [address]- 6968 28 Jul, 2014 [facility] [address] [facility] [id number] [place] [address] 14 Jul, 2014 [facility] [address] [facility] [id number] [place] [address] 13 Jul, 2014 [facility] [address] [id number] [place] [address] 16 Jun, 2014 [facility] [place] [facility] [address] [facility] [id number] [place] [address] 16 Jun, 2014 [facility] [place] [facility] [address] [facility] [id number] [place] [address] Jun, [facility] [place] [facility] [address] [facility] [id number] [place] [address] Jun, [facility] [place] [facility] [address] [id number] [place] [address] Jun, [facility] [place] [facility] [address] [id number] [place] [address] Jun, [facility] [place] [facility] [address] [id number] [place] [address] Jun, [facility] [place] [facility] [address] [id number] [place] [address] Jun, [facility] [place] [facility] [address] [id number] [place] [address] May, [facility] [place] [facility] [address] [id number] [place] [address] May, [facility] [place] [facility] [address] [id number] [place] [address] May, [facility] [place] [facility] [address] [id number] [place] [address] May, [facility] [place] [facility] [address] [id number] [place] [address] 279[address] Apr, [facility] [place] [facility] [address] [id number] [place] [address] Mar, [facility] [place] [facility] [address] [id number] [place] [address] 1509 Mar, [facility] [place] [facility] [address] [id number] [place] [address] 58[address] Mar, [facility] [place] [facility] [address] [id number] [place] [address] 1859 Mar, [facility] [place] [facility] [address] [id number] [place] [address] 1319 Mar, [facility] [place] [facility] [address] [id number] [place] [address] Mar, [facility] [place] [facility] [address] [id number] [place] [address] 05 Mar, 2014 [facility] [place] [facility] [address] [id number] [place] [address] 37[address] Mar, [facility] [place] [facility] [address] [id number] [place] [address] Mar, [facility] [place] [facility] [address] [id number] [place] [address] 30[address] Feb, [facility] [place] [facility] [address] [id number] [place] [address] 59[address] Feb, [facility] [place] [facility] [address] [id number] [place] [address] 4066 Feb, [facility] [place] [facility] [address] [id number] [place] [address] Feb, [facility] [place] [facility] [address] [id number] [place] [address] 3941 Feb, [facility] [place] [facility] [address] [id number] [place] [address] 4115 Feb, [facility] [place] [facility] [address] [id number] [place] [address] 2826 Feb, [facility] [place] [facility] [address] [id number] [place] [address] Feb, [facility] [place] [facility] [address] [id number] [place] [address] 8571 Jan, [facility] [place] [facility] [address] [id number] [place] [address] 23 Jan, 2014 [facility] [place] [facility] [address] [id number] [place] [address] 7[address] 16 Jan, 2014 [facility] [place] [facility] [address] [id number] [place] [address] 4490 16 Jan, 2014 [facility] [place] [facility] [address] [id number] [place] [address]- 6065 15 Jan, 2014 [facility] [place] [facility] [address] [id number] [place] [address]- 1795 15 Jan, 2014 [facility] [place] [facility] [address] [id number] [place] [address]247 14 Jan, 2014 [facility] [place] [facility] [address] [id number] [place] [address] 7751 14 Jan, 2014 [facility] [place] [facility] [address] [id number] [place] [address] 7092 14 Jan, 2014 [facility] [place] [facility] [address] [id number] [place] [address] 3293 14 Jan, 2014 [facility] [place] [facility] [address] [id number] [place] [address] 8647 18 Dec, 2013 [facility] [place] [facility] [address] [id number] [place] [address]- 7907 18 Dec, 2013 [facility] [place] [facility] [address] [id number] [place] [address]- 9173 10 Dec, 2013 [facility] [place] [facility] [address] [id number] [place] [address]- 8245 10 Dec, 2013 [facility] [place] [facility] [address] [id number] [place] [address] 1161 Nov, [facility] [place] [facility] [address] [id number] [place] [address] 9697 Nov, [facility] [place] [facility] [address] [id number] [place] [address] 8189 Nov, [facility] [place] [facility] [address] [id number] [place] [address] 8306 Nov, [facility] [place] [facility] [address] [id number] [place] [address] 4424 Nov, [facility] [place] [facility] [address] [id number] [place] [address]- 0765 Oct, [facility] [place] [facility] [address] [id number] [place] [address] 6352 Oct, [facility] [place] [facility] [address] [id number] [place] [address]- 9885 Oct, [facility] [place] [facility] [address] [id number] [place] [address] Oct, [facility] [place] [facility] [address] [id number] [place] [address] 1547 Sep, [facility] [place] [facility] [address] [id number] [place] [address] 3807 Sep, [facility] [place] [facility] [address] [id number] [place] [address]- 9785 Sep, [facility] [place] [facility] [address] [id number] [place] [address] 8158 Sep, [facility] [place] [facility] [address] [id number] [place] [address]- 8824 Sep, [facility] [place] [facility] [address] [id number] [place] [address] 0447 Sep, [facility] [place] [facility] [address] [id number] [place] [address]- 9885 Sep, [facility] [place] [facility] [address] [id number] [place] [address]- 8054 Sep, [facility] [place] [facility] [address] [id number] [place] [address] 4986 August, [facility] [place] [facility] [address] [id number] [place] [address]- 2588 August, [facility] [place] [facility] [address] [id number] [place] [address]- 9308 August, [facility] [place] [facility] [address] [id number] [place] [address] 7229 August, [facility] [place] [facility] [address] [id number] [place] [address]- 7766 August, [facility] [place] [facility] [address] [id number] [place] [address] 1742 August, [facility] [place] [facility] [address] [id number] [place] [address] 7409 August, [facility] [place] [facility] [address] [id number] [place] [address] 6549 Jul, [facility] [place] [facility] [address] [id number] [place] [address]- 8789 Jul, [facility] [place] [facility] [address] [id number] [place] [address] 2606 Jul, [facility] [place] [facility] [address] [id number] [place] [address]- 4[address] Jul, [facility] [place] [facility] [address] [id number] [place] [address] 0176 Jul, [facility] [place] [facility] [address] [id number] [place] [address] 4577 Jul, [facility] [place] [facility] [address] [id number] [place] [address]- 1723 Jul, [facility] [place] [facility] [address] [id number] [place] [address]- 8593 Jul, [facility] [place] [facility] [address] [id number] [place] [address]- 1214 Jul, [facility] [place] [facility] [address] [id number] [place] [address]- 9305 Jul, [facility] [place] [facility] [address] [id number] [place] [address]- 6575 Jul, [facility] [place] [facility] [address] [id number] [place] [address]- 1127 Jul, [facility] [place] [facility] [address] [id number] [place] [address]- 6602 Jun, [facility] [place] [facility] [address] [id number] [place] [address]- 6604 Jun, [facility] [place] [facility] [address] [id number] [place] [address]- 1107 Jun, [facility] [place] [facility] [address] [id number] [place] [address]- 2333 Jun, [facility] [place] [facility] [address] [id number] [place] [address]- 3269 Jun, [facility] [place] [facility] [address] [id number] [place] [address]- 7822 May, [facility] [place] [facility] [address] [id number] [place] [address]- 0485 May, [facility] [place] [facility] [address] [id number] [place] [address]- 3958 May, [facility] [place] [facility] [address] [id number] [place] [address]- 4337 May, [facility] [place] [facility] [address] [id number] [place] [address]- 1147 May, [facility] [place] [facility] [address] [id number] [place] [address]- 1111 May, [facility] [place] [facility] [address] [id number] [place] [address]- 9622 May, [facility] [place] [facility] [address] [id number] [place] [address]- 0611 May, [facility] [place] [facility] [address] [id number] [place] [address]- 5004 Mar, [facility] [place] [facility] [address] [id number] [place] [address]- 1867 Mar, [facility] [place] [facility] [address] [id number] [place] [address] Mar, [facility] [place] [facility] [address] [facility] [id number] [place] [address] Mar, [facility] [place] [facility] [address] [id number] [place] [address]- 6291 Mar, [facility] [place] [facility] [address] [id number] [place] [address]- 9163 Mar, [facility] [place] [facility] [address] [id number] [place] [address]- 4858 Feb, [facility] [place] [facility] [address] [id number] [place] [address]- 3925 Feb, [facility] [place] [facility] [address] [id number] [place] [address]- 1096 Jan, [facility] [place] [facility] [address] [id number] [place] [address]- 8090 Jan, [facility] [place] [facility] [address] [id number] [place] [address]- 4603 Jan, [facility] [place] [facility] [address] [id number] [place] [address]- 6007 Jan, [facility] [place] [facility] [address] [id number] [place] [address]- 7494 Jan, [facility] [place] [facility] [address] [id number] [place] [address]- 4813 Jan, [facility] [place] [facility] [address] [id number] [place] [address]- 6484 Jan, [facility] [place] [facility] [address] [id number] [place] [address]- 7560 Jan, [facility] [place] [facility] [address] [id number] [place] [address]- 5448 Jan, [facility] [place] [facility] [address] [id number] [place] [address]- 4227 Jan, [facility] [place] [facility] [address] [id number] [place] [address]- 2546 16 Dec, 2012 [facility] [place] [facility] [address] [id number] [place] [address]- 3683 Nov, [facility] [address] [facility] [id number] [place] [address]- 7833 Nov, [facility] [address] [id number] [place] [address]- 0220 Nov, [facility] [address] [facility] [id number] [place] [address]- 9750 Oct, [facility] [address] [id number], [place] [address]- 9926 Oct, [facility] [address] [id number] [place] [address]- 0715 August, [facility] [address] [facility] [id number], [place] [address]- 3856 Apr, [facility] [address] [facility] [id number] [place] [address]- 0352 Apr, [facility] [address] [facility] [id number], [place] [address]- 0548 Feb, [facility] [address] [facility] [id number], [place] [address]- 4556 Feb, [facility] [address] [facility] [id number], [place] [address]- 9712 Dec, [facility] [address] [facility] [id number], [place] [address]- 0110 Dec, [facility] [address] [facility] [id number], [place] [address]- 7180 Oct, [facility] [address] [facility] [id number], [place] [address]- 4179 Oct, [facility] [address] [facility] [id number], [place] [address]- 2084 Oct, [facility] [address] [facility] [id number][place] [address] Jul, IMMUNIZATIONS No Known Immunizations SOCIAL HISTORY Never Assessed REASON FOR VISIT medication PLAN OF CARE VITAL SIGNS MEDICATIONS Medication Instructions Dosage Frequency Start Date End Date Duration Status Clonazepam 0.25 MG Orally Twice a day 1 tablet on the tongue and allow to dissolve 12h 10 Jun, 2016 05 days Active RESULTS No Results PROCEDURES No [...] for psychosis/mental illness , last one in [facility] 4 years ago
--- OUTSIDE RECORDS SUMMARY | 2018-09-02 14:18 | XMS REPORT ---
Author Author EDWIN UMESH Organization [facility] Address [address] [place] [address] Care Team Providers Care Quilter Fixer Name Role Phone UMESH PINEDA Unavailable PROBLEMS Type Condition ICD9-CM Code [id number] Code Onset Dates Condition Status SNOMED Code Problem OAB (overactive bladder) N32.81 Active 068156489 Problem Chronic pain syndrome G89.4 Active 435502837 Problem Depression with anxiety F41.8 Active 298536725 Problem Type 2 diabetes mellitus without complication, without long-term current use of insulin E11.9 Active 777276495 Problem Paranoid schizophrenia F20.0 Active 95414301 Problem Other seasonal allergic rhinitis J30.2 Active 988513328 Problem Gastroesophageal reflux disease, esophagitis presence not specified K21.9 Active 406227639 Problem Morbid obesity due to excess calories E66.01 Active 143393682 Problem Chronic obstructive pulmonary disease, unspecified COPD type J44.9 Active 68917198 Problem History of lupus Z87.39 Active 337731863 Problem Peripheral edema R60.9 Active 078583733 Problem Parkinsonian tremor G20 Active 072517585 Assessment Paranoid schizophrenia F20.0 Dec, Active 29245034 Problem Hypothyroidism, unspecified type E03.9 Active 07055448 ALLERGIES Unknown Allergies SOCIAL HISTORY No smoking Hx information available PLAN OF CARE VITAL SIGNS MEDICATIONS Unknown Medications RESULTS No Results PROCEDURES Procedure Date Ordered Related Diagnosis Body Site INVEGA (PT'S OWN) Jan 17, 2016 THER/PROPH/DIAG INJ, SC/IM Jan 17, 2016 IMMUNIZATIONS Vaccine Route Administration Date Status INVEGA (PT'S OWN) IM Intramuscular Jan 17, 2016 Administered
--- OUTSIDE RECORDS SUMMARY | 2018-09-02 14:19 | XMS REPORT ---
Author Author SOTO STRICKLAND Organization [facility] Address [address] [place] [address] Care Team Providers Care Building Drafter Name Role Phone STRICKLANDTRINH CariasELE Unavailable PROBLEMS Type Condition ICD9-CM Code [id number] Code Onset Dates Condition Status SNOMED Code Problem Type 2 diabetes mellitus without complication, without long-term current use of insulin E11.9 Active 949295825 Problem OAB (overactive bladder) N32.81 Active 019863836 Problem History of lupus Z87.39 Active 432245645 Problem Other elevated white blood cell (WBC) count D72.828 Active 973594908 Problem Primary insomnia F51.01 Active 6322489 Problem Gastroesophageal reflux disease without esophagitis K21.9 Active 429648378 Problem ARIAS on CPAP G47.33 Active 75316075 Problem Schizoaffective disorder, depressive type F25.1 Active 19065229 Problem Seasonal allergic rhinitis due to other allergic trigger J30.89 Active 174266047 Problem Chronic obstructive pulmonary disease, unspecified COPD type J44.9 Active 96922355 Problem Morbid obesity due to excess calories E66.01 Active 959148956 Problem Hypothyroidism, unspecified type E03.9 Active 28274192 Problem Peripheral edema R60.9 Active 447872375 Problem Depression with anxiety F41.8 Active 824417004 Problem Paranoid schizophrenia F20.0 Active 84348288 Problem Chronic pain syndrome G89.4 Active 516070222 Problem Parkinsonian tremor G20 Active 456109893 ALLERGIES Substance Reaction Event Type Date Status Penicillins Unknown Non Drug Allergy Apr, Active Sulfa(sulfonamide Antibiotics) Unknown Non Drug Allergy Apr, Active SOCIAL HISTORY No smoking Hx information available PLAN OF CARE Activity Details Follow Up prn Reason: VITAL SIGNS Height 57 in 2016-05-02 Weight 217.4 lbs 2016-05-02 Temperature 97.4 degrees Fahrenheit 2016-05-02 Heart Rate 76 bpm 2016-05-02 Respiratory Rate 22 2016-05-02 BMI 47.04 kg/m2 2016-05-02 Blood pressure systolic 132 mmHg 2016-05-02 Blood pressure diastolic 86 mmHg 2016-05-02 MEDICATIONS Medication Instructions Dosage Frequency Start Date End Date Duration Status Ventolin HFA 108MCG/A INHALE TWO PUFFS BY MOUTH EVERY 4 HOURS NEEDED 90 Active Ibuprofen 600 MG Orally Three times a day 1 tablet 8h Mar,Jun 90 days Active Doxycycline Hyclate 100 MG Orally every 12 hrs 1 tablet 12h Apr, Apr, 5 day(s) Active Nexium 40 mg Orally Once a day 1 capsule 24h 90 days Active Premarin 0.625 MG/GM insert 0.5 gram by vaginal route twice weekly Active Spironolactone 50MG Orally Once a day 1 tablet 24h 90 Active Nexium 40MG Orally Once a day 1 capsule 24h 90 Active Trazodone HCl 150 MG Orally Once a day 1 tablet at bedtime as needed 24h Active Levothyroxine Sodium 150 MCG Orally Once a day 1 tablet 24h 90 Active Januvia 25 MG Orally Once a day 2 tablets 24h Mar, 90 days Active Pravastatin Sodium 10 MG Orally Once a day 1 tablet 24h 30 Active Norvasc 10MG Orally Once a day 1 tablet 24h 30 Active Claritin 10 mg Orally Once a day 1 tablet 24h Active Ventolin HFA 108 (90 Base) MCG/ACT Inhalation every 4 hrs 2 puffs as needed 4h Feb, 90 days Active Myrbetriq 50 MG Orally Once a day 1 tablet 24h 90 days Active Metformin HCl 1000MG TAKE ONE TABLET BY MOUTH TWICE DAILY 90 Active Vistaril 25MG Orally every 8 hrs 1 capsule as needed 8h 30 Active PredniSONE 10 mg Orally Once a day 1 tablet 24h Apr, Apr, 05 days Active Restasis 0.05 % instill 1 drop into affected eye(s) by ophthalmic route 2 times per day Oct, Active Suvorexant 10 mg Orally Once a day 1 tablet at bedtime as needed 24h Mar Active Metformin HCl 1000 MG Orally Twice a day 1 tablet with meals 12h Mar, 90 days Active Ambien 5 mg Orally Once a day 1 tablet at bedtime 24h 30 days Active metformin 1,000 mg orally 2 times a day 1 tablet 12h Jun, Active Vistaril 25 MG Orally every 8 hrs 1 capsule as needed 8h Active Tizanidine HCl 4 MG Orally 3 times a day 1 1/2 tablets 8h Active Claritin 10MG Orally Once a day 1 tablet 24h 90 days Active Norvasc 10 mg Orally Once a day 1 tablet 24h 30 Active Breo Ellipta 100-25 mcg/dose Inhalation Once a day inhale 1 puff by inhalation route once daily at the same time each day 24h 12 Jun, 2014Mar 90 days Active Gabapentin 600 MG Orally Three times a day 1 tablet 8h 90 Active Sertraline HCl 100 MG Orally Once a day 1 tablet 24h Active Invega Sustenna 234 MG/1.5ML Intramuscular Once a month, on the 10th of every month 1.5 ml Mar, Active RESULTS Name Result Date Reference Range STREP A (IN HOUSE) 2016-05-02 STREP A negative Control + Lot # [id number] Exp date november 10 PROCEDURES Procedure Date Ordered Related Diagnosis Body Site [facility] VISIT ESTABLISHED PATIENT May 02, 2016 Office Visit, Est Pt., Level 3 May 02, 2016 STREP A ASSAY W/OPTIC May 02, 2016 IMMUNIZATIONS No Known Immunizations
--- OUTSIDE RECORDS SUMMARY | 2018-09-02 14:19 | XMS REPORT ---
Author Author JORGE COOK [facility] Address Unknown Care Team Providers [facility] Stars Specialist Name Role Phone JORGE COOK Unavailable PROBLEMS Type Condition ICD9-CM Code ZRL59-WN Code Onset Dates Condition Status SNOMED Code Problem Other seasonal allergic rhinitis J30.2 Active 484975584 Problem Gastroesophageal reflux disease, esophagitis presence not specified K21.9 Active 898898942 Problem Tobacco abuse Z72.0 Active 150252111 Problem Seasonal allergic rhinitis due to pollen J30.1 Active 21901002 Problem History of lupus Z87.39 Active 302964387 Problem COPD exacerbation J44.1 Active 238917288 Problem OAB (overactive bladder) N32.81 Active 914742202 Problem Morbid obesity due to excess calories E66.01 Active 566809016 Problem Dyslipidemia E78.5 Active 192345188 Problem Migraine without aura and without status migrainosus, not intractable G43.009 Active 229695000 Problem Hypothyroidism (acquired) E03.9 Active 022804598 Problem Essential hypertension I10 Active 70178853 Problem Type 2 diabetes mellitus without complication, without long-term current use of insulin E11.9 Active 183266814 Problem Gastroesophageal reflux disease without esophagitis K21.9 Active 839047684 Problem Chronic pain syndrome G89.4 Active 145479096 Problem Paranoid schizophrenia F20.0 Active 13766474 Problem Primary insomnia F51.01 Active 1883762 Problem DM neuro manif type II E11.49 Active 99337409 Problem Depression with anxiety F41.8 Active 488958094 Problem Seasonal allergic rhinitis due to other allergic trigger J30.89 Active 911270322 Problem Menopausal syndrome (hot flashes) N95.1 Active 466170984 Problem Chronic obstructive pulmonary disease, unspecified COPD type J44.9 Active 48566217 Problem Schizoaffective disorder, depressive type F25.1 Active 41851784 Problem Other allergic rhinitis J30.89 Active 459404300 ALLERGIES No Information ENCOUNTERS Encounter Location Date Diagnosis [facility], [place] [address] [address] Nov, [facility], [place] [id number] [place] [address] 68658- 9255 Oct, [facility], [place] [id number] [place] [address] 64562- 6437 Oct, [facility], [place] [id number] [place] [address] 73972- 0770 Oct, [facility], [place] [id number] [place] [address] 29145- 9805 Sep, Paranoid schizophrenia F20.0 [facility], [place] [id number] [place] [address] 62377- 4372 Sep, Paranoid schizophrenia F20.0 and BMI 45.0-49.9, adult Z68.42 [facility], [place] [id number] [place] [address] 53321- 9456 Sep, Schizoaffective disorder, depressive type F25.1 [facility], [place] [id number] [place] [address] 08507- 9907 Sep, [facility], [place] [id number] [place] [address] 47428- 8625 Sep, Paranoid schizophrenia F20.0 [facility], [place] [id number] [place] [address] 66928- 4610 Sep, [facility], [place] [id number] [place] [address] 19407- 1913 Sep, Hypothyroidism (acquired) E03.9 [facility], [place] [id number] [place] [address] 84741- 2002 Sep, [facility], [place] [id number] [place] [address] 05921- 5672 August, Schizoaffective disorder, depressive type F25.1 [facility], [place] [id number] [place] [address] 99030- 7982 August, [facility], [place] [id number] [place] [address] 90158- 5575 August, [facility], [place] [id number] [place] [address] 10966- 9199 August, [place] [id number] [place] [address] 06492- 4561 August, Paranoid schizophrenia F20.0 [place] [id number] [place] [address] 48660- 4301 August, History of lupus Z87.39 and Chronic pain syndrome G89.4 [place] [id number] [place] [address] 64190- 3212 August, [facility] [id number] [place] [address] 03424 -5191 August, Seasonal allergic rhinitis, unspecified trigger J30.2 and BMI 45.0-49.9, adult Z68.42 [place] [id number] [place] [address] 92218- 9241 Jul, Schizoaffective disorder, depressive type F25.1 [place] [id number] [place] [address] 44832- 2587 Jul, [place] [id number] [place] [address] 98222- 0872 Jul, Hypothyroidism (acquired) E03.9 [place] [id number] [place] [address] 11571- 3567 Jul, Chronic obstructive pulmonary disease, unspecified COPD type J44.9 and Type 2 diabetes mellitus without complication, without long-term current use of insulin E11.9 [place] [id number] [place] [address] 18137- 5236 Jul, Paranoid schizophrenia F20.0 [place] [id number] [place] [address] 08025- 3217 Jun, Hypothyroidism (acquired) E03.9 and Seasonal allergic rhinitis due to pollen J30.1 [facility] [address] 16847 -7146 Jun, Shortness of breath at rest R06.02 ; COPD exacerbation J44.1 and BMI 45.0-49.9, adult Z68.42 [facility], [place] [address] 28622- 8733 Jun, [facility], [place] [address] 60774- 8778 Jun, Paranoid schizophrenia F20.0 ; Depression with anxiety F41.8 and BMI 45.0-49.9, adult Z68.42 [facility], [place] [address] 17107- 9676 Jun, Schizoaffective disorder, depressive type F25.1 [facility] [address] [id number] Jun, Dental caries K02.9 [facility] [place] [address] 51595- 6120 Jun, Paranoid schizophrenia F20.0 [facility], [place] [address] 33214- 7015 May, Migraine without aura and without status migrainosus, not intractable G43.009 ; DM neuro manif type II E11.49 and Type 2 diabetes mellitus without complication, without long-term current use of insulin E11.9 [facility], [place] [address] 69524- 6948 May, Migraine without aura and without status migrainosus, not intractable G43.009 [facility], [place] [address] 37803- 7867 May, Depression with anxiety F41.8 [facility] [address] [id number] May, [facility], [place] [id number] [place] [address] 22787- 0755 May, [place] [address] 67424- 9002 May, [facility] [place] [id number] [place] [address] 82422- 9602 May, Hypothyroidism (acquired) E03.9 [place] [address] 00148- 2826 May, Paranoid schizophrenia F20.0 [place] [address] 27880- 3859 May, Type 2 diabetes mellitus without complication, [...] N32.81 and Controlled substance agreement signed Z79.899 [place] [address] 78387- 6314 May, Controlled substance agreement signed Z79.899 [place] [id number] [place] [address] 48732- 4483 Apr, [facility] [address] [id number] Apr, Dental examination Z01.20 [place] [id number] [place] [address] 91515- 9307 Apr, Paranoid schizophrenia F20.0 [place] [address] [place] [address]- 9253 Apr, Hypertension, unspecified type I10 [facility], [place] [id number] [place] [address] 49055- 3231 Apr, Paranoid schizophrenia F20.0 [facility], [place] [id number] [place] [address] 83474- 4269 Apr, [facility], [place] [address] 57611- 0430 Apr, Tobacco abuse Z72.0 [facility], [place] [id number] [place] [address] 45065- 0069 Apr, [facility], [place] [address] 72514- 0485 Mar, [place] [id number] [place] [address] 98407- 7181 Mar, Paranoid schizophrenia F20.0 and BMI 45.0-49.9, adult Z68.42 [facility], [place] [id number] [place] [address] 76192- 9306 Mar, Schizoaffective disorder, depressive type F25.1 [place] [id number] [place] [address] 71715- 9393 Mar, [facility], [place] [id number] [place] [address] 79479- 7919 Mar, Hypothyroidism, unspecified type E03.9 [facility], [place] [id number] [place] [address] 00688- 3801 Mar, Schizoaffective disorder, depressive type F25.1 [facility] [id number] [place] [address] 90620 -8686 Feb, Gastroenteritis K52.9 and BMI 45.0-49.9, adult Z68.42 [facility] [place] [id number] [place] [address] 74555- 5637 Feb, [place] [id number] [place] [address] 03644- 0766 Feb, [facility] [place] [id number] [place] [address] 18841- 8305 Feb, [facility], [place] [id number] [place] [address] 65151- 9638 Feb, [facility] [place] [address] 35571- 1270 Feb, Paranoid schizophrenia F20.0 [facility], [place] [id number] [place] [address] 98413- 8678 Feb, Gastroesophageal reflux disease without esophagitis K21.9 ; Other seasonal allergic rhinitis J30.2 ; Other allergic rhinitis J30.89 ; Tobacco abuse Z72.0 and BMI 40.0-44.9, adult Z68.41 [place] [address] 18634- 0078 Feb, Onychomycosis B35.1 ; Callus of foot L84 and DM neuro manif type II E11.49 [place] [id number] [place] [address] 31213- 8805 Jan, Chronic allergic rhinitis J30.9 [place] [id number] [place] [address] 36852- 2858 Jan, [facility] [place] [id number] [place] [address] 13339- 5708 Jan, Schizoaffective disorder, depressive type F25.1 [facility] [place] [id number] [place] [address] 79677- 0910 Jan, [facility] [address] 78555 -5406 Jan, Sore throat J02.9 and Seasonal allergic rhinitis due to other allergic trigger J30.89 [facility] [place] [id number] [place] [address] 74484- 2628 Jan, [facility] [place] [id number] [place] [address] 51550- 4873 Jan, [facility] [id number] [place] [address] 18387 -5613 Jan, Chronic allergic rhinitis J30.9 [facility], [place] [id number] [place] [address] 75046- 8843 Dec, Paranoid schizophrenia F20.0 ; Primary insomnia F51.01 and Schizoaffective disorder, depressive type F25.1 [facility], [place] [id number] [place] [address] 36113- 5178 Dec, Chronic pain syndrome G89.4 ; Cervicalgia of occipito- atlanto-axial region M54.2 ; Menopausal syndrome (hot flashes) N95.1 and Encounter for immunization Z23 [facility] [place] [id number] [place] [address] 34847- 5985 14 Dec, 2016 [facility] [place] [id number] [place] [address] 00950- 3530 Dec, [facility] [place] [address] 30913- 7464 08 Dec, 2016 Paranoid schizophrenia F20.0 [facility] [place] [id number] [place] [address] 17116- 3628 Dec, Schizoaffective disorder, depressive type F25.1 [facility] [place] [id number] [place] [address] 64859- 3459 Nov, Hypothyroidism, unspecified type E03.9 [facility] [id number] [place] [address] 97418 -6910 Nov, Acute seasonal allergic rhinitis due to other allergen J30.89 [facility] [place] [id number] [place] [address] 21135- 6739 Nov, [facility] [place] [address] 30934- 3734 Nov, Hypothyroidism, unspecified type E03.9 and Other elevated white blood cell (WBC) count D72.828 [place] [id number] [place] [address] 00324- 0879 Nov, Schizoaffective disorder, depressive type F25.1 [place] [id number] [place] [address] 75543- 1580 Nov, Paranoid schizophrenia F20.0 [place] [id number] [place] [address] 75238- 1406 Nov, Type 2 diabetes mellitus without complication, without long- term current use of insulin E11.9 ; Morbid obesity due to excess calories E66.01 and Chronic pain syndrome G89.4 [place] [id number] [place] [address] 50292- 9218 Oct, Paranoid schizophrenia F20.0 [place] [id number] [place] [address] 48999- 0908 Oct, [place] [id number] [place] [address] 61031- 4064 Oct, Schizoaffective disorder, depressive type F25.1 [place] [id number] [place] [address] 94537- 3046 Oct, Hypothyroidism, unspecified type E03.9 and Other elevated white blood cell (WBC) count D72.828 [place] [id number] [place] [address] 71174- 7556 Oct, Morbid obesity due to excess calories E66.01 ; Chronic obstructive pulmonary disease, unspecified COPD type J44.9 ; History of lupus Z87.39 ; Hypothyroidism, unspecified type E03.9 ; Gastroesophageal reflux disease without esophagitis K21.9 ; Primary insomnia F51.01 and Chronic pain syndrome G89.4 [place] [id number] [place] [address] 93795- 8279 Sep, [place] [id number] [place] [address] 36435- 9340 Sep, [facility] [place] [address], [place] [address]- 4088 Sep, [facility] [place] [address], [place] [address]- 3309 Sep, Paranoid schizophrenia F20.0 [facility] [place] [address], [place] [address]- 9317 Sep, [facility] [place] [address], [place] [address]- 0277 Sep, Paranoid schizophrenia F20.0 [facility] [place] [address], [place] [address]- 3489 Sep, [facility] [place] [address], [place] [address]- 1255 August, Paranoid schizophrenia F20.0 [facility] [place] [address], [place] [address]- 3382 Jul, [facility] [place] [address], [place] [address]- 4113 Jul, Type 2 diabetes mellitus without complication, without long- term current use of insulin E11.9 ; Morbid obesity due to excess calories E66.01 ; Depression with anxiety F41.8 ; Hypothyroidism, unspecified type E03.9 ; Seasonal allergic rhinitis due to other allergic trigger J30.89 ; Pain, dental K08.89 and Gastroesophageal reflux disease without esophagitis K21.9 [facility] [id number] [id number] Jul, Dental examination Z01.20 [facility] [place] [address], [place] [address]- 7319 07 Jul, 2016 Paranoid schizophrenia F20.0 [facility] [place] [address], [place] [address]- 2262 Jun, Paranoid schizophrenia F20.0 and Depression with anxiety F41.8 [facility] [place] [id number] [place] [address] 40973- 8778 10 Jun, 2016 Paranoid schizophrenia F20.0 and Depression with anxiety F41.8 [place] [id number] [place] [address] 98391- 2615 09 Jun, 2016 [place] [id number] [place] [address] 40122- 2133 Jun, [facility] [place] [address] 88444 -8053 Jun, Seasonal allergic rhinitis due to other allergic trigger J30.89 [facility] [place] [id number] [place] [address] 06408 -0940 May, Sore throat J02.9 ; Other viral agents as the cause of diseases classified elsewhere B97.89 and Acute upper respiratory infection, unspecified J06.[address] 54725- 9542 08 May, 2016 Paranoid schizophrenia F20.0 and Depression with anxiety F41.8 [place] [id number] [place] [address] 02561- 4916 Apr, Other seasonal allergic rhinitis J30.2 [place] [id number] [place] [address] 93889- 3084 Apr, Paranoid schizophrenia F20.0 and Depression with anxiety F41.8 [facility] [place] [id number] [place] [address] 03176 -7553 Apr, Bronchitis J40 and Sore throat J02.9 [place] [id number] [place] [address] 94482- 0828 Apr, Type 2 diabetes mellitus without complication, without long- term current use of insulin E11.9 [facility] [place] [id number] [place] [address] 57281 -4917 Apr, Bronchitis J40 [place] [address] 19076- 1321 Apr, [place] [id number] [place] [address] 79606- 5382 Apr, [place] [id number] [place] [address] 61750- 3805 Mar, Type 2 diabetes mellitus without complication, [...] R60.9 and Other seasonal allergic rhinitis J30.2 [place] [id number] [place] [address] 22325- 1980 Mar, Paranoid schizophrenia F20.0 and Depression with anxiety F41.8 [place] [id number] [place] [address] 18977- 4346 Feb, [place] [id number] [place] [address] 67368- 1489 Feb, [place] [id number] [place] [address] 08500- 1923 Feb, [place] [id number] [place] [address] 50437- 1200 Feb, [place] [id number] [place] [address] 11676- 2543 Feb, Type 2 diabetes mellitus without complication, without long- term current use of insulin E11.9 ; ARIAS on CPAP G47.33 and Preoperative evaluation to rule out surgical contraindication Z01.818 [place] [id number] [place] [address] 43938- 3323 Feb, Paranoid schizophrenia F20.0 and Depression with anxiety F41.8 [place] [address] 67581- 0422 18 Jan, 2016 [facility] [place] [address] [facility] [id number] [address]- 5911 18 Jan, 2016 Paranoid schizophrenia F20.0 and Depression with anxiety F41.8 [facility] [place] [address] [facility] [id number] [place] [address]- 4457 17 Jan, 2016 [facility] [place] [address] [facility] [id number], [place] [address]- 1230 14 Jan, 2016 Muscle strain T14.8 [facility] [place] [address] [facility] [id number] [place] [address] 74778- 9560 10 Jan, 2016 Paranoid schizophrenia F20.0 [facility] [place] [address] [facility] [id number], [place] [address]- 3027 07 Jan, 2016 [facility], [place] [address] [facility] [id number], [place] [address] 05 Jan, 2016 Paranoid schizophrenia F20.0 and Depression with anxiety F41.8 [facility], [place] [address] [facility] [id number], [place] [address] 05 Jan, 2016 [facility], [place] [address] [place] [id number], [place] [address] 03 Jan, 2016 [facility], [place] [address] [facility] [id number], [place] [address] 28 Dec, 2015 [facility], [place] [address] [facility] [id number], [place] [address] 23 Dec, 2015 Paranoid schizophrenia F20.0 [facility], [place] [address] [facility] [id number], [place] [address] 16 Dec, 2015 Paranoid schizophrenia F20.0 and Depression with anxiety F41.8 [facility], [place] [address] [facility] [id number], [place] [address] 31 Nov, 2015 [facility], [place] [address] [facility] [id number], [place] [address] 24 Nov, 2015 Paranoid schizophrenia F20.0 [place] [id number] [place] [address]- 5042 Nov, Paranoid schizophrenia F20.0 and Depression with anxiety F41.8 [place] [address] [place] [id number] [place] [address] 93901- 0697 Nov, Type 2 diabetes mellitus without complication, without long- term current use of insulin E11.9 ; Paranoid schizophrenia F20.0 ; Chronic obstructive pulmonary disease, unspecified COPD type J44.9 ; Morbid obesity due to excess calories E66.01 and Parkinsonian tremor G20 [place] [address] [place] [id number] [place] [address] 84330- 0668 Nov, [place] [address] [place] [id number] [place] [address] 98381- 6218 Oct, Paranoid schizophrenia F20.0 [place] [address] [place] [id number] [place] [address] 10673- 0832 Oct, Paranoid schizophrenia F20.0 [place] [address] [place] [id number] [place] [address] 23024- 9434 Oct, Paranoid schizophrenia F20.0 and Depression with anxiety F41.8 [place] [address] [place] [id number] [place] [address] 43709- 5341 Oct, [place] [address] [place] [id number] [place] [address] 12154- 5897 Oct, Paranoid schizophrenia F20.0 and Depression with anxiety F41.8 [place] [address] [place] [id number] [place] [address] 47372- 6097 Oct, Nasal sore J34.89 [place] [id number] [place] [address] 12006- 0322 Oct, Type 2 diabetes mellitus without complication, without long- term current use of insulin E11.9 ; Depression with anxiety F41.8 ; Hypothyroidism, unspecified type E03.9 and History of lupus Z87.39 [place] [address] [place] [address] 2546 Oct, [facility] [place] [id number] [place] [address] 99099- 1066 Oct, Type 2 diabetes mellitus without complication, [...] [facility] [place] [id number] [place] [address] 21187- 7936 Feb, [facility] [place] [address] [address]- 6246 Jan, [facility] [place] [id number] [place] [address] 44622- 6496 Jan, [facility], [place] [id number] [place] [address] 15143- 6336 Jan, [facility], [place] [id number] [place] [address] 92356- 2546 Dec, [facility], [place] [id number] [place] [address] 93180- 2546 Nov, [facility], [place] [id number] [place] [address] 58705- 2546 Nov, [facility], [place] [address] [address]- 2546 Oct, [facility] [place] [id number] [place] [address] 54852- 2546 Oct, [facility], [place] [id number] [place] [address] 53317- 0887 Oct, [facility] [place] [address] [facility] [id number] [place] [address]- 5038 Sep, [facility] rh[facility] 477.9 [facility] [address] [facility] [id number] [place] [address]- 0341 11 Sep, 2014 Rhinitis, allergic 477.9 [facility], [place] [address] [facility] [id number] [place] [address]- 2087 10 Sep, 2014 Rhinitis, allergic 477.9 [facility] [address] [facility] [id number] [place] [address]- 6836 Sep, [facility], [place] [id number] [address]- 4345 August, [facility], [place] [address] [id number] [address]- 3387 August, [facility], [place] [id number] [address]- 5227 August, [facility], [place] [address] [id number] [address]- 7544 Jul, [facility], [place] [id number] [address]- 0922 14 Jul, 2014 [facility], [place] [address] [id number] [address]- 6999 Jul, [facility], [place] [id number] [address]- 4058 16 Jun, 2014 [facility] [address] [facility] [id number] [place] 1870 16 Jun, 2014 [facility] [id number] 9342 Jun, [facility] [address] [facility] [id number] [place] 9866 Jun, [facility] [address] [id number] [address]- 3643 Jun, [facility] [place] [facility] [address] [id number] [place] [address]- 7200 Jun, [facility] [place] [facility] [address] [id number] [place] [address]- 1213 Jun, [facility] [place] [facility] [address] [id number] [place] [address]- 6350 Jun, [facility] [place] [facility] [address] [id number] [place] [address]- 1161 May, [facility] [place] [facility] [address] [id number] [place] 3350 May, [facility] [place] [facility] [address] [id number] [place] [address]- 3959 May, [facility] [place] [facility] [address] [id number] [place] [address]- 8190 May, [facility] [place] [facility] [address] [id number] [place] [address]- 0687 Apr, [facility] [place] [facility] [address] [id number] [place] [address]- 4937 Mar, [facility] [place] [facility] [address] [id number] [place] [address]- 8968 Mar, [facility] [place] [facility] [address] [id number] [place] [address]- 7832 Mar, [facility] [place] [facility] [address] [id number] [place] [address]- 2528 Mar, [facility] [place] [facility] [address] [id number] [place] 1111 Mar, [facility] [place] [facility] [address] [id number] [place] [address]- 3366 Mar, [facility] [place] [facility] [address] [id number] [place] [address]- 6071 Mar, [facility] [place] [facility] [address] [id number] [place] 6189 Mar, [facility] [place] [facility] [address] [id number] [place] [address]- 2533 Mar, [facility] [place] [facility] [address] [id number] [place] [address]- 8870 Feb, [facility] [place] [facility] [address] [id number] [place] [address]- 5206 Feb, [facility] [place] [facility] [address] [id number] [place] [address]- 6430 Feb, [facility] [place] [facility] [address] [id number] [place] [address]- 2095 Feb, [facility] [place] [facility] [address] [id number] [place] [address]- 3846 Feb, [facility] [place] [facility] [address] [id number] [place] [address]- 9992 Feb, [facility] [place] [facility] [address] [id number] [place] [address]- 9150 Feb, [facility] [place] [facility] [address] [id number] [place] [address]- 0964 Feb, [facility] [place] [facility] [address] [facility] [id number] [place] [address]- 6575 Jan, [facility] [place] [facility] [address] [id number] [place] [address]- 7567 Jan, [facility] [place] [facility] [address] [id number], [place] [address]- 1546 16 Jan, 2014 [facility] [place] [facility] [address] [id number] [place] [address]- 7242 16 Jan, 2014 [facility] [place] [facility] [address] [id number] [place] [address]- 4447 15 Jan, 2014 [facility] [place] [facility] [address] [id number] [place] [address]- 9174 15 Jan, 2014 [facility] [place] [facility] [address] [id number] [place] [address]- 3908 14 Jan, 2014 [facility] [place] [facility] [address] [id number] [place] [address]- 4636 14 Jan, 2014 [facility] [place] [facility] [address] [id number] [place] [address]- 2220 14 Jan, 2014 [facility] [place] [facility] [address] [id number] [place] [address]- 2396 14 Jan, 2014 [facility] [place] [facility] [address] [id number] [place] [address]- 3896 18 Dec, 2013 [facility] [place] [facility] [address] [id number] [place] [address]- 6877 18 Dec, 2013 [facility] [place] [facility] [address] [id number] [place] [address]- 9047 10 Dec, 2013 [facility] [place] [facility] [address] [id number] [place] [address]- 2588 10 Dec, 2013 [facility] [place] [facility] [address] [id number] [place] [address]- 9945 Nov, [facility] [place] [facility] [address] [id number] [place] [address]- 8838 Nov, [facility] [place] [facility] [address] [id number] [place] [address]- 5993 Nov, [facility] [place] [facility] [address] [id number] [place] [address]- 8780 Nov, [facility] [place] [facility] [address] [id number] [place] [address]- 8125 Nov, [facility] [place] [facility] [address] [id number] [place] [address]- 1305 Oct, [facility] [place] [facility] [address] [id number] [place] [address]- 9449 Oct, [facility] [place] [facility] [address] [id number] [place] [address]- 2845 Oct, [facility] [place] [facility] [address] [id number] [place] [address]- 7782 Oct, [facility] [place] [facility] [address] [id number] [place] [address]- 7225 Sep, [facility] [place] [facility] [address] [id number] [place] [address]- 9986 Sep, [facility] [place] [facility] [address] [id number] [place] [address]- 0713 Sep, [facility] [place] [facility] [address] [id number] [place] [address]- 5694 Sep, [facility] [place] [facility] [address] [id number] [place] [address]- 8366 Sep, [facility] [place] [facility] [address] [id number] [place] [address]- 1231 Sep, [facility] [place] [facility] [address] [id number] [place] [address]- 9674 Sep, [facility] [place] [facility] [address] [id number] [place] [address]- 0655 Sep, [facility] [place] [facility] [address] [id number] [place] [address]- 5789 August, [facility] [place] [facility] [address] [id number] [place] [address]- 3701 August, [facility] [place] [facility] [address] [id number] [place] [address]- 3059 August, [facility] [place] [facility] [address] [id number] [place] [address]- 9493 August, [facility] [place] [facility] [address] [id number] [place] [address]- 2055 August, [facility] [place] [facility] [address] [id number] [place] [address]- 9944 August, [facility] [place] [facility] [address] [id number] [place] [address]- 8892 August, [facility] [address] [id number] [place] [address]- 0517 Jul, [facility] [place] [facility] [address] [id number] [place] [address]- 1510 Jul, [facility] [address] [id number] [place] [address]- 5108 Jul, [facility] [place] [facility] [address] [id number] [place] [address]- 5641 Jul, [facility] [address] [id number] [place] [address]- 3867 Jul, [facility] [address] [id number] [place] [address]- 8961 Jul, [facility] [place] [facility] [address] [id number] [place] [address]- 6764 Jul, [facility] [address] [id number] [place] [address]- 8719 Jul, [facility] [place] [facility] [address] [id number] [place] [address]- 4284 Jul, [facility] [address] [id number] [place] [address]- 7746 Jul, [facility] [place] [facility] [address] [id number] [place] [address]- 6166 Jul, [facility] [place] [facility] [address] [id number] [place] [address]- 7921 Jul, [facility] [place] [facility] [address] [id number] [place] [address]- 6576 Jun, [facility] [place] [facility] [address] [id number] [place] [address]- 7963 Jun, [facility] [place] [facility] [address] [id number] [place] 9213 Jun, [facility] [place] [facility] [address] [id number] [place] [address]- 7755 Jun, [facility] [place] [facility] [address] [id number] [place] [address]- 8635 Jun, [facility] [place] [facility] [address] [id number] [place] [address]- 9014 May, [facility] [place] [facility] [address] [id number] [place] [address]- 5900 May, [facility] [place] [facility] [address] [id number] [place] [address]- 6230 May, [facility] [place] [facility] [address] [id number] [place] [address]- 7840 May, [facility] [place] [facility] [address] [id number] [place] [address]- 1982 May, [facility] [place] [facility] [address] [id number] [place] [address]- 9354 May, [facility] [place] [facility] [address] [id number] [place] [address]- 0218 May, [facility] [place] [facility] [address] [id number] [place] [address]- 8142 May, [facility] [place] [facility] [address] [id number] [place] [address]- 6163 Mar, [facility] [place] [facility] [address] [id number] [place] [address]- 2319 Mar, [facility] [place] [facility] [address] [id number] [place] [address]- 8663 Mar, [facility] [place] [facility] [address] [id number] [place] [address]- 4388 Mar, [facility] [place] [facility] [address] [facility] [id number] [place] [address]- 6951 Mar, [facility] [place] [facility] [address] [id number] [place] [address]- 2831 Mar, [facility] [address] [id number] [place] [address]- 5560 Feb, [facility] [place] [facility] [address] [id number] [place] [address]- 3978 Feb, [facility] [address] [id number] [place] [address]- 8079 Jan, [facility] [place] [facility] [address] [id number] [place] [address]- 2606 Jan, [facility] [address] [id number] [place] [address]- 8667 Jan, [facility] [place] [facility] [address] [id number] [place] [address]- 6174 Jan, [facility] [place] [facility] [address] [id number] [place] [address]- 8789 Jan, [facility] [place] [facility] [address] [id number] [place] [address]- 2825 Jan, [facility] [place] [facility] [address] [id number] [place] [address]- 5628 Jan, [facility] [place] [facility] [address] [id number] [place] [address]- 9106 Jan, [facility] [place] [facility] [address] [id number] [place] [address]- 4626 Jan, [facility] [place] [facility] [address] [id number] [place] [address]- 5778 Jan, [facility] [place] [facility] [address] [id number] [place] [address]- 6295 16 Dec, 2012 [facility] [place] [facility] [address] [id number] [place] [address]- 2546 Nov, [facility] [place] [facility] [address] [id number] [place] [address]- 2417 Nov, [facility] [place] [address] [facility] [id number], [place] [address]- 2853 Nov, [facility] [place] [address] [facility] [id number], [place] [address]- 5996 Oct, [facility] [place] [address] [facility] [id number], [place] [address]- 0926 Oct, [facility] [place] [address] [facility] [id number], [place] [address]- 6907 August, [facility] [place] [address] [facility] [id number], [place]- 2335 Apr, [facility] [place] [address] [id number] 2037 Apr, [facility] [place] [address], [place] [address]- 8545 Feb, [facility] [place] [address], [place] [address]- 0410 Feb, [facility] [place] [address], [place] [address]- 8821 Dec, [facility] [place] [address], [place] [address]- 2802 Dec, [facility] [place] [address] [id number], [place] [address]- 4493 Oct, [facility] [place] [address] [id number], [place] [address]- 5296 Oct, [facility] [place] [address] [id number], [place] [address]- 9406 Oct, [facility] [place] [address] [id number] [address] 1354 Jul, IMMUNIZATIONS No Known Immunizations SOCIAL HISTORY Never Assessed REASON FOR VISIT Schedule dental appt PLAN OF CARE VITAL SIGNS MEDICATIONS Unknown [...] for psychosis/mental illness , last one in [place] at [facility] 4 years ago
--- NOTE | 2018-09-02 14:20 | Diagnostic Imaging Report ---
INDICATION: Fall. TIME OF EXAM: 01:17 p.m. Two views right ankle were obtained. An AP view was not performed. Only lateral and oblique was performed. There is a fracture of the distal fibula in a supra-syndesmotic location. There appears to be an ankle dislocation although imaging is limited. The talus appears to be anteriorly positioned in relation to the distal tibia. The distal tibial fracture suspected as well which may involve the posterior malleolus. There is a plantar calcaneal spur. Midfoot alignment is unremarkable. IMPRESSION: Ankle fracture dislocation. Dictated by: Dictated on workstation # [id number]
--- OUTSIDE RECORDS SUMMARY | 2018-09-02 14:20 | XMS REPORT ---
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 Name Role Phone SOTO STRICKLAND Unavailable PROBLEMS Type Condition ICD9-CM Code RNB94-VN Code Onset Dates Condition Status SNOMED Code Problem Other seasonal allergic rhinitis J30.2 Active 572207613 Problem Gastroesophageal reflux disease, esophagitis presence not specified K21.9 Active 413879116 Problem Tobacco abuse Z72.0 Active 933661763 Problem Seasonal allergic rhinitis due to pollen J30.1 Active 59249951 Problem History of lupus Z87.39 Active 890869839 Problem COPD exacerbation J44.1 Active 344440367 Problem OAB (overactive bladder) N32.81 Active 088871743 Problem Morbid obesity due to excess calories E66.01 Active 289788689 Problem Dyslipidemia E78.5 Active 440905284 Problem Migraine without aura and without status migrainosus, not intractable G43.009 Active 335881769 Problem Hypothyroidism (acquired) E03.9 Active 469847993 Problem Essential hypertension I10 Active 04858847 Problem Type 2 diabetes mellitus without complication, without long-term current use of insulin E11.9 Active 666341286 Problem Gastroesophageal reflux disease without esophagitis K21.9 Active 052353138 Problem Chronic pain syndrome G89.4 Active 967485695 Problem Paranoid schizophrenia F20.0 Active 57605979 Problem Primary insomnia F51.01 Active 0085530 Problem DM neuro manif type II E11.49 Active 48689330 Problem Depression with anxiety F41.8 Active 106994170 Problem Seasonal allergic rhinitis due to other allergic trigger J30.89 Active 388507080 Problem Menopausal syndrome (hot flashes) N95.1 Active 718492348 Problem Chronic obstructive pulmonary disease, unspecified COPD type J44.9 Active 57742138 Problem Schizoaffective disorder, depressive type F25.1 Active 80752907 Problem Other allergic rhinitis J30.89 Active 938936400 ALLERGIES No Information ENCOUNTERS Encounter Location Date Diagnosis [facility] [address] [address] Nov, [facility] [address] [address]- [address] Jul, Hypothyroidism (acquired) E03.9 [facility] [address] [address]- [address] Jul, Chronic obstructive pulmonary disease, unspecified COPD type J44.9 and Type 2 diabetes mellitus without complication, without long-term current use of insulin E11.9 [place] [address] [address]- [address]99 Jul, Paranoid schizophrenia F20.0 [place] [address] 35093- 3395 29 Jun, 2017 Hypothyroidism (acquired) E03.9 and Seasonal allergic rhinitis due to pollen J30.1 [facility] [address] [address] Jun, Shortness of breath at rest R06.02 ; COPD exacerbation J44.1 and BMI 45.0-49.9, adult Z68.42 [facility] [address] [address]- [address] Jun, [facility] [address] 47734- 6[address] Jun, Paranoid schizophrenia F20.0 ; Depression with anxiety F41.8 and BMI 45.0-49.9, adult Z68.42 [facility] [address] [place] [id number] [place] [address] 40911- 5333 Jun, Schizoaffective disorder, depressive type F25.1 [facility] [id number] [place] [address] [id number] 13 Jun, 2017 Dental caries K02.9 [facility] [address] 0[address]- 9988 Jun, Paranoid schizophrenia F20.0 [facility] [address] [place] [address] May, Migraine without aura and without status migrainosus, not intractable G43.009 ; DM neuro manif type II E11.49 and Type 2 diabetes mellitus without complication, without long-term current use of insulin E11.9 [facility] [address] [id number] [place] [address] May, Migraine without aura and without status migrainosus, not intractable G43.009 [facility] [id number] [place] [address] May, Depression with anxiety F41.8 [facility] [id number] [place] [address] [id number] May, [facility] [address] 53966- 1555 May, [facility] [id number] [place] [address] 19548- 2442 May, [facility] [address] [place] [address] [id number]- 1593 May, Hypothyroidism (acquired) E03.9 [facility] [id number] [place] [address] 22635- 6930 May, Paranoid schizophrenia F20.0 [facility] [id number] [place] [address]- [address] May, Type 2 diabetes mellitus without complication, [...] and Controlled substance agreement signed Z79.899 [facility] [id number] [place] [address] 83798- 1469 May, Controlled substance agreement signed Z79.899 [facility] [id number] [place] [address] 08077- 9111 Apr, [facility] [id number] [place] [address] [id number] Apr, Dental examination Z01.20 [place] [address] 50913- 8958 Apr, Paranoid schizophrenia F20.0 [facility] [id number] [place] [address] 26202- 4189 Apr, Hypertension, unspecified type I10 [facility] [id number] [place] [address] 65310- 8338 Apr, Paranoid schizophrenia F20.0 [facility] [address] 32835- 8887 Apr, [facility] [id number] [place] [address] 35712- 0061 Apr, Tobacco abuse Z72.0 [facility] [id number] [place] [address] 01860- 5265 Apr, [facility] [id number] [place] [address] 99247- 1404 Mar, [facility] [address] 26781- 4510 Mar, Paranoid schizophrenia F20.0 and BMI 45.0-49.9, adult Z68.42 [facility] [id number] [place] [address] 02085- 3370 Mar, Schizoaffective disorder, depressive type F25.1 [place] [address] [place] [address] [id number] [place] [address] 34169- 3280 14 Mar, 2017 [place] [address] 25444- 8479 Mar, Hypothyroidism, unspecified type E03.9 [place] [address] 88846- 3864 Mar, Schizoaffective disorder, depressive type F25.1 [facility] [address] 8[address]20 -7825 Feb, Gastroenteritis K52.9 and BMI 45.0-49.9, adult Z68.42 [place] [address] 67229- 1551 Feb, [place] [address] 50059- 2976 Feb, [place] [address] 02101- 2198 Feb, [place] [address] 30584- 6538 16 Feb, 2017 [place] [address] 59901- 7302 Feb, Paranoid schizophrenia F20.0 [place] [address] 33474- 9341 06 Feb, 2017 Gastroesophageal reflux disease without esophagitis K21.9 ; Other seasonal allergic rhinitis J30.2 ; Other allergic rhinitis J30.89 ; Tobacco abuse Z72.0 and BMI 40.0-44.9, adult Z68.41 [place] [address] 12065- 6193 03 Feb, 2017 Onychomycosis B35.1 ; Callus of foot L84 and DM neuro manif type II E11.[address] [address]- 1390 Jan, Chronic allergic rhinitis J30.9 [facility] [id number] [place] [address] 73038- 9228 16 Jan, 2017 [facility] [address] 17081- 0722 Jan, Schizoaffective disorder, depressive type F25.1 [facility] [address] 85501- 1876 10 Jan, 2017 [facility] [address] 13993 -1819 07 Jan, 2017 Sore throat J02.9 and Seasonal allergic rhinitis due to other allergic trigger J30.89 [facility] [address] 30400- 7181 04 Jan, 2017 [facility] [address] 18645- 0882 Jan, [facility] [address] 78945 -7225 Jan, Chronic allergic rhinitis J30.9 [facility] [address] 37917- 6588 27 Dec, 2016 Paranoid schizophrenia F20.0 ; Primary insomnia F51.01 and Schizoaffective disorder, depressive type F25.1 [facility] [address] 21117- 0856 21 Dec, 2016 Chronic pain syndrome G89.4 ; Cervicalgia of occipito- atlanto-axial region M54.2 ; Menopausal syndrome (hot flashes) N95.1 and Encounter for immunization Z23 [facility] [address] 75297- 0700 14 Dec, 2016 [facility] [address] 59933- 1089 13 Dec, 2016 [facility] [address] 96760- 9703 Dec, Paranoid schizophrenia F20.0 [facility] [address] [place] [address] 03659- 2385 Dec, Schizoaffective disorder, depressive type F25.1 [facility] [id number] [place] [address] 25427- 4331 Nov, Hypothyroidism, unspecified type E03.9 [facility] [id number] [place] [address] 74962 -6267 Nov, Acute seasonal allergic rhinitis due to other allergen J30.89 [place] [address] [place] [address] [id number] [place] [address] 99037- 5005 Nov, [place] [address] [place] [address] [id number] [place] [address] 16276- 3718 Nov, Hypothyroidism, unspecified type E03.9 and Other elevated white blood cell (WBC) count D72.828 [place] [address] [place] [address] [id number] [place] [address] 91120- 9628 Nov, Schizoaffective disorder, depressive type F25.1 [place] [address] [place] [address] [id number] [place] [address] 22670- 4164 Nov, Paranoid schizophrenia F20.0 [place] [address] [place] [address] [id number] [place] [address] 99580- 7327 Nov, Type 2 diabetes mellitus without complication, without long- term current use of insulin E11.9 ; Morbid obesity due to excess calories E66.01 and Chronic pain syndrome G89.4 [place] [address] [place] [address] [id number] [place] [address] 23558- 7505 Oct, Paranoid schizophrenia F20.0 [place] [address] [place] [address] [id number] [place] [address] 27826- 5885 Oct, [facility] [address] [id number] [place] [address] 23761- 1988 Oct, Schizoaffective disorder, depressive type F25.1 [facility] [id number] [address]- 7380 Oct, Hypothyroidism, unspecified type E03.9 and Other elevated white blood cell (WBC) count D72.828 [facility] [id number] [place] [address] 76636- 1690 Oct, Morbid obesity due to excess calories E66.01 ; Chronic obstructive pulmonary disease, unspecified COPD type J44.9 ; History of lupus Z87.39 ; Hypothyroidism, unspecified type E03.9 ; Gastroesophageal reflux disease without esophagitis K21.9 ; Primary insomnia F51.01 and Chronic pain syndrome G89.4 [facility] [id number] [place] [address] 59155- 1895 Sep, [place] [address] [place] [address] [id number] [place] [address] 40795- 2082 Sep, [facility] [id number] [place] [address] 36985- 1562 Sep, [facility] [id number] [place] [address] 56172- 7098 Sep, Paranoid schizophrenia F20.0 [facility] [id number] [place] [address] 74881- 4211 Sep, [facility] [id number] [place] [address] 39900- 2415 Sep, Paranoid schizophrenia F20.0 [facility] [id number] [place] [address] 96739- 5598 Sep, [facility] [address] [id number] [place] [address] 64694- 9064 August, Paranoid schizophrenia F20.0 [facility] [id number] [place] [address] 07300- 0479 Jul, [facility] [address] [id number] [place] [address] 15597- 1068 18 Apr, 2017 Type 2 diabetes mellitus without complication, without long- term current use of insulin E11.9 ; Morbid obesity due to excess calories E66.01 ; Depression with anxiety F41.8 ; Hypothyroidism, unspecified type E03.9 ; Seasonal allergic rhinitis due to other allergic trigger J30.89 ; Pain, dental K08.89 and Gastroesophageal reflux disease without esophagitis K21.9 [facility] [address] [place] [address] [id number] 12 Jul, 2016 Dental examination Z01.20 [place] [address] [place] [id number] [place] [address] 25121- 4936 07 Jul, 2016 Paranoid schizophrenia F20.[address] 14089- 3030 13 Jun, 2016 Paranoid schizophrenia F20.0 and Depression with anxiety F41.8 [place] [address] [place] [address] [id number] [place] [address] 29995- 4747 10 Jun, 2016 Paranoid schizophrenia F20.0 and Depression with anxiety F41.8 [place] [address] [place] [address] [id number] [place] [address] 33073- 2580 09 Jun, 2016 [place] [address] [place] [address] [id number] [place] [address] 91505- 2966 Jun, [facility] [place] [id number] [place] [address] 37272 -8718 Jun, Seasonal allergic rhinitis due to other allergic trigger J30.89 [facility] [place] [id number] [place] [address] 79788 -6633 May, Sore throat J02.9 ; Other viral agents as the cause of diseases classified elsewhere B97.89 and Acute upper respiratory infection, unspecified J06.9 [place] [address] [id number] [place] [address] 91710- 9472 08 May, 2016 Paranoid schizophrenia F20.0 and Depression with anxiety F41.8 [place] [address] [place] [address] [id number] [place] [address] 84396- 7719 Apr, Other seasonal allergic rhinitis J30.2 [place] [address] [place] [address] [id number] [place] [address] 83593- 1324 Apr, Paranoid schizophrenia F20.0 and Depression with anxiety F41.8 [facility] [id number] [place] [address] 55555 -5231 Apr, Bronchitis J40 and Sore throat J02.9 [place] [address] 64240- 0830 Apr, Type 2 diabetes mellitus without complication, without long- term current use of insulin E11.9 [facility] [address] 11974 -9393 Apr, Bronchitis J40 [place] [address] 73289- 2886 Apr, [place] [address] [id number] [place] [address] 33875- 2079 Apr, [place] [address] [place] [address] [id number] [place] [address] 56996- 1787 Mar, Type 2 diabetes mellitus without complication, [...] R60.9 and Other seasonal allergic rhinitis J30.2 [place] [address] [id number] [place] [address] 41320- 7124 Mar, Paranoid schizophrenia F20.0 and Depression with anxiety F41.8 [place] [address] [id number] [place] [address] 20326- 3509 Feb, [place] [address] 99505- 2636 Feb, [facility] [address] [address]- 8518 Feb, [facility] [id number] [place] [address] 89769- 3803 Feb, [facility] [id number] [place] [address] 55383- 2089 Feb, Type 2 diabetes mellitus without complication, without long- term current use of insulin E11.9 ; ARIAS on CPAP G47.33 and Preoperative evaluation to rule out surgical contraindication Z01.818 [facility] [id number] [place] [address] 65702- 1646 Feb, Paranoid schizophrenia F20.0 and Depression with anxiety F41.8 [facility] [address] [place] [address] 09990- 1047 Jan, [facility] [id number] [place] [address] 23636- 5237 Jan, Paranoid schizophrenia F20.0 and Depression with anxiety F41.8 [facility] [id number] [place] [address] 65652- 4449 Jan, [facility] [address] [place] [address] 39911- 7828 Jan, Muscle strain T14.8 [facility] [address] [place] [address] 10350- 2630 Jan, Paranoid schizophrenia F20.0 [facility] [address] [place] [address] 09734- 6497 Jan, [facility] [id number] [place] [address] 44773- 5177 Jan, Paranoid schizophrenia F20.0 and Depression with anxiety F41.8 [facility] [address] [place] [address] 95296- 2968 Jan, [facility] [id number] [address]- 1862 Jan, [facility] [address] [address]- 1578 Dec, [facility] [id number] [place] [address] 78380- 7764 Dec, Paranoid schizophrenia F20.0 [facility] [id number] [place] [address] 48246- 4323 Dec, Paranoid schizophrenia F20.0 and Depression with anxiety F41.8 [facility] [address] [place] [address] 76885- 8602 Nov, [facility] [id number] [place] [address] 51587- 2451 Nov, Paranoid schizophrenia F20.0 [place] [id number] [place] [address] 01365- 7885 Nov, Paranoid schizophrenia F20.0 and Depression with anxiety F41.8 [facility] [address] [address]- 1569 Nov, Type 2 diabetes mellitus without complication, without long- term current use of insulin E11.9 ; Paranoid schizophrenia F20.0 ; Chronic obstructive pulmonary disease, unspecified COPD type J44.9 ; Morbid obesity due to excess calories E66.01 and Parkinsonian tremor G20 [facility] [address] [address]- 2496 Nov, [facility] [address] [address]- 1627 Oct, Paranoid schizophrenia F20.0 [facility] [address] [address]- 5459 Oct, Paranoid schizophrenia F20.0 [facility] [address] [address]- 1427 Oct, Paranoid schizophrenia F20.0 and Depression with anxiety F41.8 [place] [address] [address]- 8806 Oct, [place] [address] [id number] [place] [address] 08571- 3545 Oct, Paranoid schizophrenia F20.0 and Depression with anxiety F41.8 [place] [address] [place] [address] 47911- 8426 Oct, Nasal sore J34.89 [place] [address] [id number] [place] [address] 18359- 1691 Oct, Type 2 diabetes mellitus without complication, without long- term current use of insulin E11.9 ; Depression with anxiety F41.8 ; Hypothyroidism, unspecified type E03.9 and History of lupus Z87.39 [place] [id number] [place] [address] 53633- 1651 Oct, [place] [address] [id number] [place] [address] 39041- 3822 Oct, Type 2 diabetes mellitus without complication, [...] edema R60.9 and History of lupus Z87.39 [place] [address] [address]- 6909 Feb, [place] [id number] [place] [address] 19629- 0739 Jan, [place] [address] [address]- 4212 Jan, [place] [address] [place] [address]- 3403 Jan, [facility] [address] [facility] [place] [id number] [place] [address]- 5406 Dec, [facility] [address] [facility] [place] [id number] [place]- 1528 Nov, [facility] [address] [place] [address]- 1971 Nov, [facility] [address] [facility] [place] [id number] [place] [address]- 1351 Oct, [facility] [address] [place] [address]- 5333 Oct, [facility] [address] [place] [address]- 8372 Oct, [facility] [address] [place] [address]- 7662 Sep, Allergic rhinitis 477.9 [facility] [address] [id number] [place] [address]- 8264 Sep, Rhinitis, allergic 477.9 [facility] [address] [address]- 0660 Sep, Rhinitis, allergic 477.9 [facility] [address] [place] [address]- 7626 Sep, [facility] [id number] [address]- 9871 August, [facility] [address] [facility] [place] [id number] [place] [address]- 3432 August, [facility] [address] [place] [id number] 5126 August, [facility] [address] [place] [address]- 9452 Jul, [facility] [address] [facility] [place] [id number] [place] [address]- 1741 14 Jul, 2014 [facility] [place] [facility] [address] [id number] [place] [address]- 3780 13 Jul, 2014 [facility] [place] [facility] [address] [id number] [place] [address]- 5313 16 Jun, 2014 [facility] [place] [facility] [address] [id number] [place] [address]- 3478 16 Jun, 2014 [facility] [place] [facility] [address] [id number] [place] [address]- 9051 12 Jun, 2014 [facility] [place] [facility] [address] [id number] [place] [address]- 4626 Jun, [facility] [place] [facility] [address] [id number] [place] [address]- 9685 Jun, [facility] [place] [facility] [address] [id number] [place] [address] Jun, [facility] [place] [facility] [address] [id number] [place] [address] Jun, [facility] [place] [facility] [address] [id number] [place] [address] Jun, [facility] [place] [facility] [address] [id number] [place] [address] May, [facility] [place] [facility] [address] [id number] [place] [address] May, [facility] [place] [facility] [address] [id number] [place] [address] May, [facility] [place] [facility] [address] [id number] [place] [address] May, [facility] [place] [facility] [address] [id number] [place] [address] Apr, [facility] [place] [facility] [address] [id number] [place] [address] Mar, [facility] [place] [facility] [address] [id number] [place] [address] Mar, [facility] [place] [facility] [address] [id number] [place] [address] Mar, [facility] [place] [facility] [address] [id number] [place] [address] Mar, [facility] [place] [facility] [address] [id number] [place] [address] Mar, [facility] [place] [facility] [address] [id number] [place] [address] Mar, [facility] [place] [facility] [address] [id number] [place] [address] Mar, [facility] [place] [facility] [address] [id number] [place] [address] 12[address] Mar, [facility] [place] [facility] [address] [id number] [place] [address] 8763 Mar, [facility] [place] [facility] [address] [id number] [place] [address] Feb, [facility] [place] [facility] [address] [id number] [place] [address] Feb, [facility] [place] [facility] [address] [id number] [address] Feb, [facility] [place] [facility] [address] [id number] [place] [address] Feb, [facility] [place] [facility] [address] [id number] [place] [address] Feb, [facility] [place] [facility] [address] [id number] [place] [address] Feb, [facility] [place] [facility] [address] [id number] [place] [address] Feb, [facility] [place] [facility] [address] [id number] [place] [address] 12 Feb, 2014 [facility] [place] [facility] [address] [id number] [place] [address] 23 Jan, 2014 [facility] [place] [facility] [address] [id number] [place] [address] 9535 23 Jan, 2014 [facility] [place] [facility] [address] [id number] [place] [address] 16 Jan, 2014 [facility] [place] [facility] [address] [id number] [place] [address]- 2727 16 Jan, 2014 [facility] [place] [facility] [address] [id number] [place] [address]- 0869 15 Jan, 2014 [facility] [place] [facility] [address] [id number] [place] [address]- 2984 15 Jan, 2014 [facility] [place] [facility] [address] [id number] [place] [address]- 5667 14 Jan, 2014 [facility] [place] [facility] [address] [id number] [place] [address]- 9063 14 Jan, 2014 [facility] [place] [facility] [address] [id number] [place] [address]- 8050 14 Jan, 2014 [facility] [place] [facility] [address] [id number] [place] [address]- 1375 14 Jan, 2014 [facility] [place] [facility] [address] [id number] [place] [address]- [address]248 18 Dec, 2013 [facility] [place] [facility] [address] [id number] [place] [address]- 8051 18 Dec, 2013 [facility] [place] [facility] [address] [id number] [place] [address]- 3185 10 Dec, 2013 [facility] [place] [facility] [address] [id number] [place] [address]- 0178 10 Dec, 2013 [facility] [place] [facility] [address] [id number] [place] [address] 3087 Nov, [facility] [place] [facility] [address] [id number] [place] [address] Nov, [facility] [place] [facility] [address] [id number] [place] [address] 9221 Nov, [facility] [place] [facility] [address] [id number] [place] [address] 8743 Nov, [facility] [place] [facility] [address] [id number] [place] [address] 4820 Nov, [facility] [place] [facility] [address] [id number] [place] [address] 3[address] Oct, [facility] [place] [facility] [address] [id number] [place] [address]- 9047 Oct, [facility] [place] [facility] [address] [id number] [place] [address] 7[address] Oct, [facility] [place] [facility] [address] [id number] [place] [address]- 2017 Oct, [facility] [place] [facility] [address] [id number] [place] [address] Sep, [facility] [place] [facility] [address] [id number] [place] [address] 9598 Sep, [facility] [place] [facility] [address] [id number] [place] [address]- 9608 Sep, [facility] [place] [facility] [address] [id number] [place] [address]- 2029 Sep, [facility] [place] [facility] [address] [id number] [place] [address] 6648 Sep, [facility] [place] [facility] [address] [id number] [place] [address]- 2891 Sep, [facility] [place] [facility] [address] [id number] [place] [address]- 7902 Sep, [facility] [place] [facility] [address] [id number] [place] [address] 6417 Sep, [facility] [place] [facility] [address] [id number] [place] [address]- 3493 August, [facility] [place] [facility] [address] [id number] [place] [address]- 6137 August, [facility] [place] [facility] [address] [id number] [place] [address] 2874 August, [facility] [place] [facility] [address] [id number] [place] [address]- 0847 August, [facility] [place] [facility] [address] [id number] [place] [address]- 7376 August, [facility] [place] [facility] [address] [id number] [place] [address]- 0868 August, [facility] [place] [facility] [address] [id number] [place] [address]- 4884 August, [facility] [place] [facility] [address] [id number] [place] [address]- 3576 Jul, [facility] [place] [facility] [address] [id number] [place] [address]- 1613 Jul, [facility] [place] [facility] [address] [id number] [place] [address]- 1440 Jul, [facility] [place] [facility] [address] [id number] [place] [address]- 8218 Jul, [facility] [place] [facility] [address] [id number] [place] [address]- 2357 Jul, [facility] [place] [facility] [address] [id number] [place] [address] 3621 Jul, [facility] [place] [facility] [address] [id number] [place] [address]- 7958 Jul, [facility] [place] [facility] [address] [id number] [place] [address]- 0049 Jul, [facility] [place] [facility] [address] [id number] [place] [address]- 8050 10 Jul, 2013 [facility] [place] [facility] [address] [id number] [place] [address]- 8583 Jul, [facility] [place] [facility] [address] [id number] [place] [address]- 3023 Jul, [facility] [place] [facility] [address] [id number] [place] [address]- 9252 Jul, [facility] [place] [facility] [address] [id number] [place] [address]- 9703 Jun, [facility] [place] [facility] [address] [id number] [place] [address]- 9469 Jun, [facility] [place] [facility] [address] [facility] [id number] [place] [address]- 0411 Jun, [facility] [place] [facility] [address] [id number] [place] [address]- 8052 Jun, [facility] [place] [facility] [address] [id number] [place] [address]- 4064 Jun, [facility] [place] [facility] [address] [id number] [place] [address]- 7395 May, [facility] [place] [facility] [address] [facility] [place] [id number] [place] [address]- 2107 May, [facility] [place] [facility] [address] [id number] [place] [address]- 5660 May, [facility] [place] [facility] [address] [id number] [place] [address]- 8780 May, [facility] [place] [facility] [address] [id number] [place] [address]- 0509 May, [facility] [place] [facility] [address] [id number] [place] [address] May, [facility] [place] [facility] [address] [id number] [place] [address]- 6989 May, [facility] [place] [facility] [address] [id number] [place] [address] May, [facility] [place] [facility] [address] [id number] [place] [address]- 0464 Mar, [facility] [place] [facility] [address] [id number] [place] [address]- 0256 Mar, [facility] [place] [facility] [address] [id number] [place] [address] Mar, [facility] [place] [facility] [address] [id number] [place] [address] Mar, [facility] [place] [facility] [address] [id number] [place] [address]- 0011 Mar, [facility] [place] [facility] [address] [id number] [place] [address] Mar, [facility] [place] [facility] [address] [id number] [place] [address]- 6230 Feb, [facility] [place] [facility] [address] [id number] [place] [address]- 7051 Feb, [facility] [place] [facility] [address] [id number] [place] [address]- 4160 Jan, [facility] [place] [facility] [address] [id number] [place] [address]- 6802 Jan, [facility] [place] [facility] [address] [id number] [place] [address]- 7109 Jan, [facility] [place] [facility] [address] [id number] [place] [address]- 7413 Jan, [facility] [place] [facility] [address] [id number] [place] [address]- 1755 Jan, [facility] [place] [facility] [address] [id number] [place] [address]- 5552 Jan, [facility] [place] [facility] [address] [id number] [place] [address]- 2546 Jan, [facility] [address] [id number] [place] [address]- 6489 Jan, [facility] [address] [id number] [place] [address]- 2546 Jan, [facility] [address] [id number] [place] [address]- 3406 Jan, [facility] [address] [id number] [place] [address]- 4142 Dec, [facility] [address] [id number] [place] [address]- 8789 Nov, [facility] [address] [id number] [place] [address]- 8590 Nov, [facility] [address] [id number] [place] [address]- 2708 Nov, [facility] [address] [id number] [place] [address]- 5936 Oct, [facility] [address] [id number] [place] [address]- 3966 Oct, [facility] [address] [id number] [place] [address]- 4895 August, [facility] [address] [id number] [place] [address]- 2193 Apr, [facility] [address] [id number] [place] [address]- 5437 Apr, [facility] [place] [facility] [address] [id number] [place] [address]- 5864 Feb, [facility] [place] [facility] [address] [id number] [place] [address]- 2546 Feb, [facility] [address] [id number] [place] [address]- 5798 Dec, [facility] [address] [facility] [id number] [place] Dec, [facility] [address] [facility] [id number] [place] [address]- 3488 Oct, [facility] [address] [facility] [id number] [place] [address]- 2737 Oct, [facility] [address] [facility] [place] [id number] [place] [address]- 2427 Oct, [facility] [address] [facility] [place] [id number] [place] [address]- 6100 Jul, IMMUNIZATIONS No Known Immunizations SOCIAL HISTORY [...] for psychosis/mental illness , last one in [facility] 4 years ago
--- OUTSIDE RECORDS SUMMARY | 2018-09-02 14:21 | XMS REPORT ---
Author Author STRICKLANDSOTO Carias Organization [facility] Address [address] [place] [address] Care Team Providers Care Composition Weatherboard Installer Name Role Phone SOTO STRICKLAND Unavailable PROBLEMS Type Condition ICD9-CM Code LWI09-TB Code Onset Dates Condition Status SNOMED Code Problem Other seasonal allergic rhinitis J30.2 Active 631664994 Problem Gastroesophageal reflux disease, esophagitis presence not specified K21.9 Active 480152838 Problem Tobacco abuse Z72.0 Active 630648398 Problem Seasonal allergic rhinitis due to pollen J30.1 Active 20814058 Problem History of lupus Z87.39 Active 441770154 Problem COPD exacerbation J44.1 Active 230934915 Problem OAB (overactive bladder) N32.81 Active 811946186 Problem Morbid obesity due to excess calories E66.01 Active 353899216 Problem Dyslipidemia E78.5 Active 209934547 Problem Migraine without aura and without status migrainosus, not intractable G43.009 Active 647915931 Problem Hypothyroidism (acquired) E03.9 Active 653806499 Problem Essential hypertension I10 Active 12595142 Problem Type 2 diabetes mellitus without complication, without long-term current use of insulin E11.9 Active 816242302 Problem Gastroesophageal reflux disease without esophagitis K21.9 Active 492987397 Problem Chronic pain syndrome G89.4 Active 528855510 Problem Paranoid schizophrenia F20.0 Active 24964967 Problem Primary insomnia F51.01 Active 0143739 Problem DM neuro manif type II E11.49 Active 07108657 Problem Depression with anxiety F41.8 Active 705608887 Problem Seasonal allergic rhinitis due to other allergic trigger J30.89 Active 831115791 Problem Menopausal syndrome (hot flashes) N95.1 Active 718217686 Problem Chronic obstructive pulmonary disease, unspecified COPD type J44.9 Active 87521889 Problem Schizoaffective disorder, depressive type F25.1 Active 36851102 Problem Other allergic rhinitis J30.89 Active 103114625 ALLERGIES No Information ENCOUNTERS Encounter Location Date Diagnosis [facility] [address] [address] Nov, [facility] [id number] [place] [address] 98736- 1781 Oct, [facility] [id number] [place] [address] 40181- 1062 Sep, Schizoaffective disorder, depressive type F25.1 [facility] [id number] [place] [address] 72458- 4503 Sep, [facility] [id number] [place] [address] 72181- 5193 Sep, Paranoid schizophrenia F20.0 [facility] [id number] [place] [address] 88083- 2086 Sep, [facility] [id number] [place] [address] 27983- 0690 Sep, Hypothyroidism (acquired) E03.9 [facility] [id number] [place] [address] 10809- 0016 Sep, [facility] [id number] [place] [address] 86445- 5299 August, Schizoaffective disorder, depressive type F25.1 [facility] [id number] [address] August, [facility] [id number] [place] [address] 69718- 2619 August, [facility] [id number] [place] [address] 11888- 6627 August, [facility] [id number] [place] [address] 73623- 7134 August, Paranoid schizophrenia F20.0 [facility] [id number] [place] [address] 40437- 3877 August, History of lupus Z87.39 and Chronic pain syndrome G89.4 [place] [address] 36624- 5368 August, [facility] [address] 0[address]75 -7184 August, Seasonal allergic rhinitis, unspecified trigger J30.2 and BMI 45.0-49.9, adult Z68.42 [place] [address] 20955- 4032 Jul, Schizoaffective disorder, depressive type F25.1 [place] [address] 96693- 2276 Jul, [place] [address] 37628- 2308 Jul, Hypothyroidism (acquired) E03.9 [place] [address] 09026- 4957 Jul, Chronic obstructive pulmonary disease, unspecified COPD type J44.9 and Type 2 diabetes mellitus without complication, without long-term current use of insulin E11.9 [place] [address] 50147- 7403 Jul, Paranoid schizophrenia F20.0 [place] [address] 43666- 2714 Jun, Hypothyroidism (acquired) E03.9 and Seasonal allergic rhinitis due to pollen J30.1 [facility] [address] 92536 -2434 Jun, Shortness of breath at rest R06.02 ; COPD exacerbation J44.1 and BMI 45.0-49.9, adult Z68.42 [place] [address] 68994- 5366 Jun, [place] [address] 49140- 4060 Jun, Paranoid schizophrenia F20.0 ; Depression with anxiety F41.8 and BMI 45.0-49.9, adult Z68.42 [facility] [address] [place] [id number]- 6676 Jun, Schizoaffective disorder, depressive type F25.1 [facility] [address] [id number] Jun, Dental caries K02.9 [facility] [address] 37551- 7143 Jun, Paranoid schizophrenia F20.0 [place] [address] 40463- 7600 May, Migraine without aura and without status migrainosus, not intractable G43.009 ; DM neuro manif type II E11.49 and Type 2 diabetes mellitus without complication, without long-term current use of insulin E11.9 [facility] [address] 34889- 4497 May, Migraine without aura and without status migrainosus, not intractable G43.009 [place] [address] 37254- 9810 May, Depression with anxiety F41.8 [facility] [address] [id number] [place] [id number] May, [facility] [address] 54762- 1060 May, [facility] [address] 72050- 1134 May, [place] [address] 86168- 0594 May, Hypothyroidism (acquired) E03.9 [facility] [address] 41506- 5069 May, Paranoid schizophrenia F20.0 [facility] [id number] [place] [address] 85340- 4165 08 May, 2017 Type 2 diabetes mellitus [...] N32.81 and Controlled substance agreement signed Z79.899 [place] [address] 16142- 2687 02 May, 2017 Controlled substance agreement signed Z79.899 [place] [address] 62470- 9942 Apr, [facility] [address] [id number] Apr, Dental examination Z01.20 [place] [id number] [place] [address] 31127- 3427 Apr, Paranoid schizophrenia F20.0 [place] [address] 75407- 4425 Apr, Hypertension, unspecified type I10 [facility] [address] 94831- 4123 Apr, Paranoid schizophrenia F20.0 [place] [address] 46877- 8870 05 Apr, 2017 [place] [address] 35108- 3130 Apr, Tobacco abuse Z72.0 [place] [address] [place] [address] [place] [address] Apr, [facility] [id number] [place] [address] 66046- 6761 Mar, [facility] [id number] [place] [address] 48517- 0669 Mar, Paranoid schizophrenia F20.0 and BMI 45.0-49.9, adult Z68.42 [facility] [id number] [place] [address] 03693- 9394 Mar, Schizoaffective disorder, depressive type F25.1 [facility] [address] 26647- 0011 Mar, [facility] [id number] [place] [address] 40164- 6185 Mar, Hypothyroidism, unspecified type E03.9 [facility] [id number] [place] [address] 62181- 3937 Mar, Schizoaffective disorder, depressive type F25.1 [facility] [id number] [place] [address] 38410 -4679 Feb, Gastroenteritis K52.9 and BMI 45.0-49.[address], [address] [facility] [id number] [place] [address] 36928- 3258 Feb, [facility] [id number] [place] [address] 09606- 0848 Feb, [facility] [id number] [place] [address] 59284- 0450 Feb, [facility] [id number] [place] [address] 16789- 7756 16 Feb, 2017 [facility] [id number] [place] [address] 07608- 1678 10 Feb, [address] [facility] [address] [place] [address]- 0874 Feb, Gastroesophageal reflux disease without esophagitis K21.9 ; Other seasonal allergic rhinitis J30.2 ; Other allergic rhinitis J30.89 ; Tobacco abuse Z72.0 and BMI 40.0-44.9, adult Z68.41 [place] [id number] [place] [address] 14982- 2730 Feb, Onychomycosis B35.1 ; Callus of foot L84 and DM neuro manif type II E11.49 [place] [id number] [place] [address] 94116- 4594 Jan, Chronic allergic rhinitis J30.9 [place] [address] 14294- 2316 Jan, [place] [address] 62502- 6729 Jan, Schizoaffective disorder, depressive type F25.1 [place] [address] 62333- 4032 Jan, [facility] [address] 60563 -6629 Jan, Sore throat J02.9 and Seasonal allergic rhinitis due to other allergic trigger J30.89 [place] [id number] [place] [address] 18814- 5614 Jan, [facility] [address] 22732- 8983 Jan, [facility] [address] 43882 -9820 Jan, Chronic allergic rhinitis J30.9 [facility] [id number] [place] [address] 18475- 2233 Dec, Paranoid schizophrenia F20.0 ; Primary insomnia F51.01 and Schizoaffective disorder, depressive type F25.1 [place] [address] [place] [address]- 7352 Dec, Chronic pain syndrome G89.4 ; Cervicalgia of occipito- atlanto-axial region M54.2 ; Menopausal syndrome (hot flashes) N95.1 and Encounter for immunization Z23 [facility] [id number] [place] [address] 86330- 0038 14 Dec, 2016 [place] [address] 15819- 7982 Dec, [place] [id number] [place] [address] 48635- 0763 08 Dec, 2016 Paranoid schizophrenia F20.0 [place] [id number] [place] [address] 72205- 0735 Dec, Schizoaffective disorder, depressive type F25.1 [place] [id number] [place] [address] 47121- 9954 Nov, Hypothyroidism, unspecified type E03.9 [facility] [id number] [place] [address] 44643 -3826 Nov, Acute seasonal allergic rhinitis due to other allergen J30.89 [place] [id number] [place] [address] 79315- 9587 Nov, [place] [id number] [place] [address] 95019- 3398 Nov, Hypothyroidism, unspecified type E03.9 and Other elevated white blood cell (WBC) count D72.828 [place] [id number] [place] [address] 44113- 3312 Nov, Schizoaffective disorder, depressive type F25.1 [facility] [id number] [place] [address] 45014- 9739 Nov, Paranoid schizophrenia F20.0 [facility] [id number] [place] [address] 32538- 7629 11 Aug, 2017 Type 2 diabetes mellitus without complication, without long- term current use of insulin E11.9 ; Morbid obesity due to excess calories E66.01 and Chronic pain syndrome G89.4 [place] [id number] [place] [address] 22030- 0135 Oct, Paranoid schizophrenia F20.0 [place] [id number] [place] [address] 09545- 2766 Oct, [place] [id number] [place] [address] 07424- 4350 Oct, Schizoaffective disorder, depressive type F25.1 [place] [address] 86710- 6124 Oct, Hypothyroidism, unspecified type E03.9 and Other elevated white blood cell (WBC) count D72.828 [place] [id number] [place] [address] 97762- 8302 Oct, Morbid obesity due to excess calories E66.01 ; Chronic obstructive pulmonary disease, unspecified COPD type J44.9 ; History of lupus Z87.39 ; Hypothyroidism, unspecified type E03.9 ; Gastroesophageal reflux disease without esophagitis K21.9 ; Primary insomnia F51.01 and Chronic pain syndrome G89.4 [place] [id number] [place] [address] 01564- 0466 Sep, [place] [id number] [place] [address] 99341- 3129 Sep, [place] [id number] [place] [address] 66434- 4196 Sep, [place] [id number] [place] [address] 62092- 7867 Sep, Paranoid schizophrenia F20.0 [place] [id number] [place] [address] 93777- 3708 Sep, [place] [id number] [place] [address] 62837- 2256 Sep, Paranoid schizophrenia F20.0 [facility] [address], [place] [address]- 3[address] Sep, [facility] [id number] [place] [address] 96720- 5396 August, Paranoid schizophrenia F20.0 [facility] [address] [place] [address] 75043- 4790 Jul, [facility] [id number] [place] [address] 49075- 7958 Jul, Type 2 diabetes mellitus without complication, without long- term current use of insulin E11.9 ; Morbid obesity due to excess calories E66.01 ; Depression with anxiety F41.8 ; Hypothyroidism, unspecified type E03.9 ; Seasonal allergic rhinitis due to other allergic trigger J30.89 ; Pain, dental K08.89 and Gastroesophageal reflux disease without esophagitis K21.9 [facility] [address] [place] [address] [id number] Jul, Dental examination Z01.20 [place] [address] [place] [address] 28222- 6568 07 Jul, 2016 Paranoid schizophrenia F20.0 [place] [address] [place] [address] 35162- 3715 13 Jun, 2016 Paranoid schizophrenia F20.0 and Depression with anxiety F41.8 [place] [address] [place] [address] 43301- 4587 Jun, Paranoid schizophrenia F20.0 and Depression with anxiety F41.8 [facility] [address] [address]- 1550 Jun, [place] [id number] [place] [address] 65027- 4953 Jun, [facility] [address], [place] [address] -2249 Jun, Seasonal allergic rhinitis due to other allergic trigger J30.89 [facility] [id number] [place] [address] 43116 -3539 25 May, 2016 Sore throat J02.9 ; Other viral agents as the cause of diseases classified elsewhere B97.89 and Acute upper respiratory infection, unspecified J06.9 [place] [id number] [place] [address] 33178- 9914 08 May, 2016 Paranoid schizophrenia F20.0 and Depression with anxiety F41.8 [place] [id number] [place] [address] 23077- 6263 Apr, Other seasonal allergic rhinitis J30.2 [place] [address] 25371- 1786 Apr, Paranoid schizophrenia F20.0 and Depression with anxiety F41.8 [facility] [place] [id number] [place] [address] 41678 -6853 Apr, Bronchitis J40 and Sore throat J02.9 [place] [id number] [place] [address] 36498- 4622 Apr, Type 2 diabetes mellitus without complication, without long- term current use of insulin E11.9 [facility] [place] [id number] [place] [address] 16287 -3129 Apr, Bronchitis J40 [place] [id number] [place] [address] 51984- 5336 Apr, [place] [id number] [place] [address] 60042- 0375 Apr, [place] [id number] [place] [address] 56786- 1026 Mar, Type 2 diabetes mellitus without complication, [...] R60.9 and Other seasonal allergic rhinitis J30.2 [place] [address] 74013- 4870 Mar, Paranoid schizophrenia F20.0 and Depression with anxiety F41.8 [place] [address] 56817- 1726 Feb, [place] [address] 83922- 7226 Feb, [place] [address] 78504- 9711 Feb, [place] [address] 40867- 8124 Feb, [place] [address] 21190- 6352 Feb, Type 2 diabetes mellitus without complication, without long- term current use of insulin E11.9 ; ARIAS on CPAP G47.33 and Preoperative evaluation to rule out surgical contraindication Z01.818 [place] [address] 70074- 5005 Feb, Paranoid schizophrenia F20.0 and Depression with anxiety F41.8 [place] [address] 35376- 3622 Jan, [place] [address] 21545- 0626 Jan, Paranoid schizophrenia F20.0 and Depression with anxiety F41.8 [place] [address] 86607- 0562 Jan, [place] [address] 15954- 6875 Jan, Muscle strain T14.8 [place] [address] [place] [address]- 9254 Jan, Paranoid schizophrenia F20.0 [facility] [id number] [place] [address] 94159- 5667 Jan, [facility] [id number] [place] [address] 02603- 3885 Jan, Paranoid schizophrenia F20.0 and Depression with anxiety F41.8 [facility] [id number] [place] [address] 16689- 7886 Jan, [facility] [id number] [place] [address] 01462- 9258 Jan, [facility] [id number] [place] [address] 57919- 5661 28 Dec, 2015 [facility] [id number] [place] [address] 27099- 9688 23 Dec, [address] [facility] [id number] [place] [address] 12569- 8211 16 Dec, 2015 Paranoid schizophrenia F20.0 and Depression with anxiety F41.8 [facility] [id number] [place] [address] 37250- 9720 Nov, [facility] [address] [place] [address] 09604- 2961 Nov, Paranoid schizophrenia F20.0 [facility] [id number] [place] [address] 22805- 4855 Nov, Paranoid schizophrenia F20.0 and Depression with anxiety F41.8 [facility] [address] [address]- 0935 05 Nov, 2015 Type 2 diabetes mellitus without complication, without long- term current use of insulin E11.9 ; Paranoid schizophrenia F20.0 ; Chronic obstructive pulmonary disease, unspecified COPD type J44.9 ; Morbid obesity due to excess calories E66.01 [address] Parkinsonian tremor G20 [facility] [id number] [place] [address] 09925- 2166 Nov, [place] [id number] [place] [address] 89846- 5737 Oct, Paranoid schizophrenia F20.0 [place] [address] [place] [address] [id number] [place] [address] 26794- 1070 Oct, Paranoid schizophrenia F20.0 [place] [id number] [place] [address] 24797- 5851 Oct, Paranoid schizophrenia F20.0 and Depression with anxiety F41.8 [place] [id number] [place] [address] 52193- 8567 Oct, [place] [address] [id number] [place] [address] 14128- 7116 Oct, Paranoid schizophrenia F20.0 and Depression with anxiety F41.8 [place] [address] [id number] [place] [address] 16111- 5415 Oct, Nasal sore J34.89 [place] [address] [place] [id number] [place] [address] 97293- 4988 Oct, Type 2 diabetes mellitus without complication, without long- term current use of insulin E11.9 ; Depression with anxiety F41.8 ; Hypothyroidism, unspecified type E03.9 and History of lupus Z87.39 [place] [address] [place] [address] 41323- 5701 Oct, [place] [address] [place] [address] 15411- 8618 Oct, Type 2 diabetes mellitus without complication, [...] edema R60.9 and History of lupus Z87.39 [facility] [id number] [place] [address] 37375- 1353 Feb, [facility] [id number] [place] [address] 01096- 6452 Jan, [facility] [address] 00096- 9616 Jan, [facility] [id number] [place] [address] 97757- 4124 Jan, [facility] [id number] [place] [address] 34883- 3134 Dec, [facility] [id number] [place] [address] 34228- 6302 Nov, [facility] [id number] [place] [address] 73905- 3956 Nov, [facility] [id number] [place] [address] 19892- 5809 Oct, [facility] [id number] [place] [address] 07554- 9287 Oct, [facility] [id number] [place] [address] 83045- 7063 Oct, [facility] [id number] [place] [address] 86118- 9449 Sep, Allergic rhinitis 477.[address] [facility] [id number] [place] [address] 28196- 3804 Sep, Rhinitis, allergic 477.[address] [facility] [id number] [place] [address] 55391- 8080 Sep, Rhinitis, allergic 477.[address] [facility] [id number] [place] [address] 68130- 9597 Sep, [facility] [place] [facility] [address] [id number] [place] [address]408 August, [facility] [place] [facility] [address] [id number] [place] [address]- 6163 August, [facility] [place] [facility] [address] [id number] [place] [address]- [address]458 August, [facility] [place] [facility] [address] [id number] [place] [address]- 9807 Jul, [facility] [place] [facility] [address] [id number] [place] [address]- 0378 Jul, [facility] [place] [facility] [address] [id number] [place] [address]- 4817 Jul, [facility] [place] [facility] [address] [id number] [place] [address]- 8892 Jun, [facility] [place] [facility] [address] [id number] [place] [address]- 3651 Jun, [facility] [place] [facility] [address] [id number] [place] [address]- 6955 Jun, [facility] [place] [facility] [address] [id number] [place] [address]- 3361 Jun, [facility] [place] [facility] [address] [id number], [place] [address] 3928 Jun, [facility] [place] [facility] [address] [id number], [place] [address]17 Jun, [facility] [place] [facility] [address] [id number] [place] [address]- [address] Jun, [facility] [place] [facility] [address] [id number] [place] [address] Jun, [facility] [place] [facility] [address] [id number] [place] [address]89 May, [facility] [place] [facility] [address] [id number] [place] [address] 17 May, 2014 [facility] [address] [id number] [place] [address] May, 2014 [facility] [place] [facility] [address] [id number] [place] [address] 1796 May, 2014 [facility] [address] [id number] [place] [address] Apr, [facility] [place] [facility] [address] [id number] [place] [address] 4664 Mar, [facility] [address] [id number] [place] [address] 7057 Mar, [facility] [place] [facility] [address] [id number] [place] [address] Mar, [facility] [place] [facility] [address] [id number] [place] [address] 39[address] Mar, [facility] [address] [id number] [place] [address]70 Mar, [facility] [place] [facility] [address] [id number] [place] [address] Mar, [facility] [address] [facility] [id number] [place] [address] Mar, [facility] [place] [facility] [address] [id number] [place] [address] 1626 Mar, [facility] [place] [facility] [address] [id number] [place] [address] 4347 Mar, [facility] [place] [facility] [address] [id number] [place] [address] 9376 Feb, [facility] [place] [facility] [address] [id number] [place] [address]- 6346 Feb, [facility] [place] [facility] [address] [id number] [place] [address] Feb, [facility] [place] [facility] [address] [id number] [place] [address]- 6995 17 Feb, 2014 [facility] [place] [facility] [address] [id number] [place] [address]- [address]147 14 Feb, 2014 [facility] [place] [facility] [address] [id number] [place] [address]- 1039 14 Feb, 2014 [facility] [place] [facility] [address] [id number] [place] [address] 0648 Feb, [facility] [place] [facility] [address] [id number] [place] [address]- 1532 Feb, [facility] [place] [facility] [address] [id number] [place] [address]- 0082 23 Jan, 2014 [facility] [place] [facility] [address] [id number] [place] [address]- 1666 23 Jan, 2014 [facility] [place] [facility] [address] [id number] [place] [address]- 4929 16 Jan, 2014 [facility] [place] [facility] [address] [id number] [place] [address]- 5232 16 Jan, 2014 [facility] [place] [facility] [address] [id number], [place] [address] 15 Jan, 2014 [facility] [place] [facility] [address] [id number], [place] [address] 15 Jan, 2014 [facility] [place] [facility] [address] [id number], [place] [address] 6517 14 Jan, 2014 [facility] [place] [facility] [address] [id number] [place] [address]- 0650 14 Jan, 2014 [facility] [place] [facility] [address] [id number] [place] [address]- 3756 14 Jan, 2014 [facility] [place] [facility] [address] [id number], [place] [address]703 14 Jan, 2014 [facility] [place] [facility] [address] [id number], [place] [address]359 Dec, [facility] [place] [facility] [address] [id number] [place] [address]957 18 Dec, 2013 [facility] [place] [facility] [address] [id number] [place] [address]- 9195 Dec, [facility] [place] [facility] [address] [id number] [place] [address]- 9511 Dec, [facility] [place] [facility] [address] [id number] [place] [address]- 9396 Nov, [facility] [place] [facility] [address] [id number] [place] [address] 2445 Nov, [facility] [place] [facility] [address] [id number] [place] [address]- 9600 Nov, [facility] [place] [facility] [address] [id number] [place] [address]- 2343 Nov, [facility] [place] [facility] [address] [id number] [place] [address]113 Nov, [facility] [place] [facility] [address] [id number] [place] [address]- 6498 Oct, [facility] [place] [facility] [address] [id number] [place] [address] 4520 Oct, [facility] [place] [facility] [address] [id number] [place] [address]- 9657 Oct, [facility] [place] [facility] [address] [id number] [place] [address] 2786 Oct, [facility] [place] [facility] [address] [id number] [place] [address] 6458 Sep, [facility] [place] [facility] [address] [id number] [place] [address]- 0491 Sep, [facility] [place] [facility] [address] [id number] [place] [address] 59[address] Sep, [facility] [place] [facility] [address] [id number] [place] [address]- 6426 Sep, [facility] [place] [facility] [address] [id number] [place] [address]- 5586 Sep, [facility] [place] [facility] [address] [id number] [place] [address]- 9242 Sep, [facility] [place] [facility] [address] [id number] [place] [address]- 5822 Sep, [facility] [place] [facility] [address] [id number] [place] [address]- 7648 Sep, [facility] [place] [facility] [address] [id number] [place] [address] 7433 August, [facility] [place] [facility] [address] [id number] [place] [address]- 2110 August, [facility] [place] [facility] [address] [id number] [place] [address]- 2017 August, [facility] [place] [facility] [address] [id number] [place] [address] 8369 August, [facility] [place] [facility] [address] [id number] [place] [address] 9459 August, [facility] [place] [facility] [address] [id number] [place] [address]- 0946 August, [facility] [place] [facility] [address] [id number] [place] [address]- 4455 August, [facility] [place] [facility] [address] [id number] [place] [address] 8377 Jul, [facility] [place] [facility] [address] [id number] [place] [address] 3564 Jul, [facility] [place] [facility] [address] [id number] [place] [address]- 1073 Jul, [facility] [place] [facility] [address] [id number] [place] [address]- 2942 Jul, [facility] [place] [facility] [address] [id number] [place] [address]- 6056 Jul, [facility] [place] [facility] [address] [id number] [place] [address]- 8185 Jul, [facility] [place] [facility] [address] [id number] [place] [address]- 4691 Jul, [facility] [place] [facility] [address] [id number] [place] [address]- 7823 Jul, [facility] [place] [facility] [address] [id number] [place] [address]- 0351 Jul, [facility] [place] [facility] [address] [id number] [place] [address]- 1453 Jul, [facility] [place] [facility] [address] [id number] [place] [address]- 6273 Jul, [facility] [place] [facility] [address] [id number] [place] [address]- 4338 Jul, [facility] [place] [facility] [address] [id number] [place] [address]- 1799 Jun, [facility] [place] [facility] [address] [id number] [place] [address]- 9312 Jun, [facility] [place] [facility] [address] [id number] [place] [address]- 9209 Jun, [facility] [place] [facility] [address] [id number] [place] [address]- 9531 Jun, [facility] [place] [facility] [address] [id number] [place] [address]- 7880 Jun, [facility] [place] [facility] [address] [id number] [place] [address]- 3238 May, [facility] [place] [facility] [address] [id number] [place] [address]- 2757 May, [facility] [place] [facility] [address] [id number] [place] [address]- 1274 May, 2013 [facility] [place] [facility] [address] [id number] [place] [address]- 7185 May, 2013 [facility] [place] [facility] [address] [id number] [place] [address] May, 2013 [facility] [place] [facility] [address] [id number] [place] [address]- 1836 May, 2013 [facility] [place] [facility] [address] [id number] [place] [address]- 4261 May, [facility] [place] [facility] [address] [id number] [place] [address]- 2802 May, [facility] [place] [facility] [address] [facility] [id number] [place] [address]- 9235 Mar, [facility] [place] [facility] [address] [facility] [id number] [place] [address]- 9014 Mar, [facility] [place] [facility] [address] [id number] [place] [address]- 1246 Mar, [facility] [place] [facility] [address] [facility] [id number] [place] [address]- 3762 Mar, [facility] [place] [facility] [address] [facility] [id number] [place] [address] Mar, [facility] [place] [facility] [address] [facility] [id number] [place] [address]- 8443 Mar, [facility] [place] [facility] [address] [id number] [place] [address]- 5779 Feb, [facility] [place] [facility] [address] [id number] [place] [address]- 3016 Feb, [facility] [place] [facility] [address] [facility] [id number] [place] [address]- 0898 Jan, [facility] [place] [facility] [address] [id number] [place] [address]- 0753 Jan, [facility] [place] [facility] [address] [id number] [place] [address]- 7658 Jan, [facility] [place] [facility] [address] [id number] [place] [address]- 6624 Jan, [facility] [place] [facility] [address] [id number] [place] [address]- 2149 Jan, [facility] [place] [facility] [address] [id number] [place] [address]- 4192 Jan, [facility] [place] [facility] [address] [id number] [place] [address]- 7407 Jan, [facility] [place] [facility] [address] [id number] [place] [address]- 8203 Jan, [facility] [place] [facility] [address] [id number] [place] [address]- 5346 Jan, [facility] [place] [facility] [address] [id number] [place] [address]- 3753 Jan, [facility] [place] [facility] [address] [id number] [place] [address]- 6240 Dec, [facility] [place] [facility] [address] [id number] [place] [address]- 4420 Nov, [facility] [place] [facility] [address] [id number], [place] [address]- 5916 Nov, [facility] [place] [facility] [address] [id number], [place] [address]- 0562 Nov, [facility] [place] [facility] [address] [id number] [place] [address]- 7800 Oct, [facility] [place] [facility] [address] [id number], [place] [address]- 5755 Oct, [facility] [place] [facility] [address] [id number] [place] [address]- 3256 August, [facility] [place] [facility] [id number], [place] [address] Apr, [facility] [id number] [address]195 Apr, [facility] [id number] [address]103 Feb, [facility] [id number] [address] 1148 Feb, [facility] [id number] [address] 2548 Dec, [facility] [id number] [place] [address]4061- 0545 Dec, [facility] [id number] [place] [address]- 3017 Oct, [facility] [id number] [place] [address]- 7168 Oct, [facility] [id number], [place] [address]- [address] Oct, [facility] [id number], [place] [address]- 0191 Jul, IMMUNIZATIONS No Known Immunizations SOCIAL HISTORY Never Assessed REASON FOR VISIT Med Refill PLAN OF CARE VITAL SIGNS MEDICATIONS Medication Instructions Dosage Frequency Start Date End Date Duration Status Nicoderm CQ 14 MG/24HR Transdermal Once a day apply 1 new patch each day, remove old patch prior to applying new patch 24h Apr, 2 May, 2017 30 day(s) Active RESULTS No Results PROCEDURES [...] for psychosis/mental illness , last one in [facility] 4 years ago
--- OUTSIDE RECORDS SUMMARY | 2018-09-02 14:22 | XMS REPORT ---
Author Author SOTO STRICKLAND Organization [facility] Address [address] [place] [address] Care Team Providers Care Television News Video Editor Name Role Phone SOTO STRICKLAND Unavailable PROBLEMS Type Condition ICD9-CM Code FCN19-EV Code Onset Dates Condition Status SNOMED Code Problem OAB (overactive bladder) N32.81 Active 621915988 Problem Depression with anxiety F41.8 Active 548426683 Problem Other seasonal allergic rhinitis J30.2 Active 048081701 Problem Chronic obstructive pulmonary disease, unspecified COPD type J44.9 Active 64189724 Problem Tobacco abuse Z72.0 Active 636213270 Problem Morbid obesity due to excess calories E66.01 Active 993233017 Problem Dyslipidemia E78.5 Active 179394284 Problem Hypothyroidism (acquired) E03.9 Active 630465625 Problem Essential hypertension I10 Active 42125109 Problem Diabetic polyneuropathy associated with type 2 diabetes mellitus E11.42 Active 964880743 Problem Type 2 diabetes mellitus with diabetic neuropathic arthropathy, 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 Active 595982734 Problem Type 2 diabetes mellitus without complication, without long-term current use of insulin E11.9 Active 495939860 Problem Paranoid schizophrenia F20.0 Active 11416681 Problem Chronic pain syndrome G89.4 Active 676448835 Problem Migraine without aura and without status migrainosus, not intractable G43.009 Active 222552419 Problem Gastroesophageal reflux disease, esophagitis presence not specified K21.9 Active 136277299 Problem Seasonal allergic rhinitis due to pollen J30.1 Active 10426322 Problem COPD exacerbation J44.1 Active 389067262 Problem Seasonal allergic rhinitis due to other allergic trigger J30.89 Active 335366110 Problem Schizoaffective disorder, depressive type F25.1 Active 90129794 Problem History of lupus Z87.39 Active 378107202 Problem Gastroesophageal reflux disease without esophagitis K21.9 Active 603953191 Problem Menopausal syndrome (hot flashes) N95.1 Active 689359557 Problem Other allergic rhinitis J30.89 Active 759840026 Problem Primary insomnia F51.01 Active 7957493 Problem DM neuro manif type II E11.49 Active 18739283 ALLERGIES No Information ENCOUNTERS Encounter Location Date Diagnosis [place] [address] [address] Dec, [place] [address] [place] [id number] [place] [address] 15139- 2496 Nov, [place] [address] [place] [id number] [place] [address] 34551- 1010 Nov, [place] [address] [place] [id number] [place] [address] 08072- 1332 Oct, Paranoid schizophrenia F20.0 [place] [id number] [address] Oct Chronic pain syndrome G89.4 and Schizoaffective disorder, depressive type F25.1 [place] [address] [place] [address] 63928- 2578 Oct, Chronic pain syndrome G89.4 and Schizoaffective disorder, depressive type F25.1 [place] [address] [place] [address] 53487- 6599 Oct, Type 2 diabetes mellitus without complication, without long- term current use of insulin E11.9 [place] [address] [place] [address] 98507- 5728 Oct, Essential hypertension I10 and DM neuro manif type II E11.49 [place] [address] [place] [address] 23259- 8778 Oct, [place] [address] [place] [id number] [place] [address] 42569- 0526 Oct, Schizoaffective disorder, depressive type F25.1 and BMI 45.0 -49.9, adult Z68.42 [place] [address] [place] [id number] [place] [address] 56800- 5944 Oct, [facility] [address] [id number] [place] [address] 19948- 8777 Oct, Paranoid schizophrenia F20.0 [facility] [address] [id number] [place] [address] 21613- 6016 Oct, Type 2 diabetes mellitus with diabetic neuropathic arthropathy, 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 ; Essential hypertension I10 ; Hypothyroidism (acquired) E03.9 ; Chronic obstructive pulmonary disease, unspecified COPD type J44.9 and Diabetic polyneuropathy associated with type 2 diabetes mellitus E11.42 [facility] [address] [id number] [place] [address] 09923- 4383 Sep, Paranoid schizophrenia F20.0 [facility] [address] [place] [id number] [place] [address] 05277- 5823 Sep, Paranoid schizophrenia F20.0 and BMI 45.0-49.9, adult Z68.42 [facility] [id number] [place] [address] 17303- 6410 Sep, Schizoaffective disorder, depressive type F25.1 [facility] [id number] [place] [address] 22886- 6404 Sep, [facility] [id number] [place] [address] 15419- 7684 Sep, Paranoid schizophrenia F20.0 [facility] [id number] [place] [address] 35990- 0872 Sep, [facility] [id number] [place] [address] 59941- 0586 Sep, Hypothyroidism (acquired) E03.9 [facility] [id number] [place] [address] 26455- 7483 Sep, [facility] [id number] [place] [address] 76998- 7709 August, Schizoaffective disorder, depressive type F25.1 [facility] [address] [place] [id number] [place] [address] 89269- 4359 August, [facility] [address] 35364- 7339 August, [facility] [address] [id number] [place] [address] 25440- 4090 August, [place] [address] 53320- 3842 August, Paranoid schizophrenia F20.0 [place] [address] [place] [id number] [place] [address] 22357- 7288 August, History of lupus Z87.39 and Chronic pain syndrome G89.4 [place] [address] [place] [id number] [place] [address] 25356- 1928 August, [facility] [address] 30967 -2122 August, Seasonal allergic rhinitis, unspecified trigger J30.2 and BMI 45.0-49.9, adult Z68.42 [place] [address] [place] [id number] [place] [address] 55236- 5797 Jul, Schizoaffective disorder, depressive type F25.1 [place] [address] [place] [id number] [place] [address] 06377- 1613 Jul, [place] [address] [place] [id number] [place] [address] 85372- 8591 Jul, Hypothyroidism (acquired) E03.9 [place] [address] [place] [id number] [place] [address] 70032- 0923 Jul, Chronic obstructive pulmonary disease, unspecified COPD type J44.9 and Type 2 diabetes mellitus without complication, without long-term current use of insulin E11.9 [place] [address] [place] [id number] [place] [address] 10022- 4597 Jul, Paranoid schizophrenia F20.0 [place] [address] [place] [id number] [place] [address] 53077- 3524 Jun, Hypothyroidism (acquired) E03.9 and Seasonal allergic rhinitis due to pollen J30.1 [facility] [address] [place] [id number] [place] [address] 54769 -6943 Jun, Shortness of breath at rest R06.02 ; COPD exacerbation J44.1 and BMI 45.0-49.9, adult Z68.42 [facility] [address] 89391- 4943 Jun, [facility] [address] 63567- 9018 Jun, Paranoid schizophrenia F20.0 ; Depression with anxiety F41.8 and BMI 45.0-49.9, adult Z68.42 [facility] [address] 96758- 2005 20 Jun, 2017 Schizoaffective disorder, depressive type F25.1 [facility] [address] [id number] Jun, Dental caries K02.9 [place] [address] 34138- 8109 Jun, Paranoid schizophrenia F20.0 [facility] [address] [place] [id number] [place] [address] 54470- 3134 May, Migraine without aura and without status migrainosus, not intractable G43.009 ; DM neuro manif type II E11.49 and Type 2 diabetes mellitus without complication, without long-term current use of insulin E11.9 [facility] [address] 70139- 0891 May, Migraine without aura and without status migrainosus, not intractable G43.009 [facility] [address] [place] [id number] [place] [address] 80061- 4767 May, Depression with anxiety F41.8 [facility] [address] [id number] [place] [address] [id number] May, [facility] [address] [place] [id number] [place] [address] 47086- 7868 May, [facility] [address] [place] [id number] [place] [address] 48834- 1584 May, [facility] [address] [place] [id number] [place] [address] 16156- 2428 May, Hypothyroidism (acquired) E03.9 [place] [address] [place] [id number] [place] [address] 06998- 4402 May, Paranoid schizophrenia F20.0 [place] [address] 14705- 5509 May, Type 2 diabetes mellitus without complication, [...] Controlled substance agreement signed Z79.899 [place] [address] [place] [id number] [place] [address] 15798- 4909 May, Controlled substance agreement signed Z79.899 [place] [address] [place] [id number] [place] [address] 93283- 6425 Apr, [facility] [address] [place] [id number] [place] [address] [id number] Apr, Dental examination Z01.20 [place] [address] [place] [id number] [place] [address] 62974- 8954 Apr, Paranoid schizophrenia F20.0 [facility] [address] [place] [address] 08750- 2931 Apr, Hypertension, unspecified type I10 [facility] [address] [place] [id number] [place] [address] 34380- 0806 Apr, Paranoid schizophrenia F20.0 [facility] [address] [place] [id number] [place] [address] 51477- 4163 Apr, [facility] [address] [place] [id number] [place] [address] 02288- 6785 Apr, Tobacco abuse Z72.0 [facility] [address] 97570- 5365 Apr, [facility] [address] [place] [id number] [place] [address] 63551- 7891 Mar, [facility] [address] [place] [id number] [place] [address] 89627- 2790 Mar, Paranoid schizophrenia F20.0 and BMI 45.0-49.9, adult Z68.42 [facility] [address] [place] [id number] [place] [address] 72659- 0548 Mar, Schizoaffective disorder, depressive type F25.1 [facility] [address] [place] [id number] [place] [address] 51282- 7239 Mar, [facility] [address] [place] [id number] [place] [address] 16093- 5883 Mar, Hypothyroidism, unspecified type E03.9 [facility] [address] [place] [id number] [place] [address] 00037- 1798 Mar, Schizoaffective disorder, depressive type F25.1 [facility] [address] [place] [address] 99350 -9449 Feb, Gastroenteritis K52.9 and BMI 45.0-49.9, adult Z68.42 [facility] [address] [place] [id number] [place] [address] 13593- 2077 Feb, [place] [address] 40794- 5055 Feb, [place] [address] 83616- 0061 Feb, [place] [address] 71056- 9402 Feb, [place] [address] 11729- 4976 Feb, Paranoid schizophrenia F20.[address] 00384- 1408 Feb, Gastroesophageal reflux disease without esophagitis K21.9 ; Other seasonal allergic rhinitis J30.2 ; Other allergic rhinitis J30.89 ; Tobacco abuse Z72.0 and BMI 40.0-44.9, adult Z68.[address] 22590- 0368 Feb, Onychomycosis B35.1 ; Callus of foot L84 and DM neuro manif type II E11.[address] 17741- 0989 Jan, Chronic allergic rhinitis J30.[address] 94751- 9100 Jan, [place] [address] 31005- 4723 Jan, Schizoaffective disorder, depressive type F25.1 [place] [address] 47375- 6101 Jan, [facility] [address] 23227 -4873 Jan, Sore throat J02.9 and Seasonal allergic rhinitis due to other allergic trigger J30.89 [place] [address] [place] [address]- 2106 Jan, [facility] [address] [place] [id number] [place] [address] 92502- 2246 Jan, [facility] [address] [place] [id number] [place] [address] 57078 -1222 Jan, Chronic allergic rhinitis J30.9 [facility] [address] [place] [id number] [place] [address] 12566- 5176 Dec, Paranoid schizophrenia F20.0 ; Primary insomnia F51.01 and Schizoaffective disorder, depressive type F25.1 [facility] [address] 26846- 6179 Dec, Chronic pain syndrome G89.4 ; Cervicalgia of occipito- atlanto-axial region M54.2 ; Menopausal syndrome (hot flashes) N95.1 and Encounter for immunization Z23 [facility] [address] [place] [id number] [place] [address] 02917- 4034 14 Dec, 2016 [facility] [address] [place] [id number] [place] [address] 20517- 7571 Dec, [facility] [address] [place] [id number] [place] [address] 54667- 8205 Dec, Paranoid schizophrenia F20.0 [facility] [address] [place] [id number] [place] [address] 14697- 9324 Dec, Schizoaffective disorder, depressive type F25.1 [facility] [address] [place] [id number] [place] [address] 26669- 1988 Nov, Hypothyroidism, unspecified type E03.9 [facility] [address] [place] [id number] [place] [address] 47046 -1233 Nov, Acute seasonal allergic rhinitis due to other allergen J30.89 [facility] [address] [id number] [place] [address] 39742- 4919 Nov, [facility] [address] [place] [address] [place] [address]- 6372 Nov, Hypothyroidism, unspecified type E03.9 and Other elevated white blood cell (WBC) count D72.828 [place] [address] [place] [id number] [place] [address] 31123- 4132 Nov, Schizoaffective disorder, depressive type F25.1 [place] [address] [place] [id number] [place] [address] 05594- 4287 Nov, Paranoid schizophrenia F20.0 [place] [address] [place] [id number] [place] [address] 80772- 1372 Nov, Type 2 diabetes mellitus without complication, without long- term current use of insulin E11.9 ; Morbid obesity due to excess calories E66.01 and Chronic pain syndrome G89.4 [place] [address] [place] [id number] [place] [address] 12030- 1778 Oct, Paranoid schizophrenia F20.0 [place] [address] [place] [id number] [place] [address] 93439- 7795 Oct, [place] [address] [place] [id number] [place] [address] 28714- 1921 Oct, Schizoaffective disorder, depressive type F25.1 [place] [address] [place] [id number] [place] [address] 08516- 0820 Oct, Hypothyroidism, unspecified type E03.9 and Other elevated white blood cell (WBC) count D72.828 [place] [address] [place] [id number] [place] [address] 93712- 6045 Oct, Morbid obesity due to excess calories E66.01 ; Chronic obstructive pulmonary disease, unspecified COPD type J44.9 ; History of lupus Z87.39 ; Hypothyroidism, unspecified type E03.9 ; Gastroesophageal reflux disease without esophagitis K21.9 ; Primary insomnia F51.01 and Chronic pain syndrome G89.4 [place] [address] [place] [address] 60370- 0796 Sep, [facility] [address], [place] [address]- 2858 Sep, [facility] [id number] [place] [address] 96310- 9163 Sep, [facility] [address] [place] [id number] [place] [address] 39065- 0336 Sep, Paranoid schizophrenia F20.0 [facility] [address] [place] [id number] [place] [address] 94559- 5904 Sep, [facility] [address] [id number] [place] [address] 72856- 1903 Sep, Paranoid schizophrenia F20.0 [facility] [address] [id number] [place] [address] 14549- 8074 Sep, [facility] [address] [id number] [place] [address] 61974- 4963 August, Paranoid schizophrenia F20.0 [facility] [address] [place] [address] 42129- 0667 Jul, [facility] [address] [id number] [place] [address] 17548- 1631 Jul, Type 2 diabetes mellitus without complication, without long- term current use of insulin E11.9 ; Morbid obesity due to excess calories E66.01 ; Depression with anxiety F41.8 ; Hypothyroidism, unspecified type E03.9 ; Seasonal allergic rhinitis due to other allergic trigger J30.89 ; Pain, dental K08.89 and Gastroesophageal reflux disease without esophagitis K21.9 [facility] [address] [id number] Jul, Dental examination Z01.20 [facility] [address] [id number] [place] [address] 00847- 0315 07 Jul, 2016 Paranoid schizophrenia F20.0 [facility] [address] [place] [address] 45365- 8848 Jun, Paranoid schizophrenia F20.0 and Depression with anxiety F41.8 [place] [address] [place] [id number] [place] [address] 14815- 3211 10 Jun, 2016 Paranoid schizophrenia F20.0 and Depression with anxiety F41.8 [place] [address] [place] [id number] [place] [address] 36425- 8444 09 Jun, [address] 66001- 3629 Jun, [facility] [place] [id number] [place] [address] 09723 -5590 Jun, Seasonal allergic rhinitis due to other allergic trigger J30.89 [facility] [place] [id number] [place] [address] 65285 -6787 May, Sore throat J02.9 ; Other viral agents as the cause of diseases classified elsewhere B97.89 and Acute upper respiratory infection, unspecified J06.9 [place] [address] [place] [id number] [place] [address] 19018- 6918 May, Paranoid schizophrenia F20.0 and Depression with anxiety F41.8 [place] [id number] [place] [address] 90345- 4868 Apr, Other seasonal allergic rhinitis J30.2 [place] [id number] [place] [address] 38534- 1356 Apr, Paranoid schizophrenia F20.0 and Depression with anxiety F41.8 [facility] [place] [id number] [place] [address] 19842 -7708 Apr, Bronchitis J40 and Sore throat J02.[address] 50183- 0553 Apr, Type 2 diabetes mellitus without complication, without long- term current use of insulin E11.9 [facility] [place] [id number] [place] [address] 78567 -8998 Apr, Bronchitis J40 [place] [address] [place] [address] 20296- 1927 Apr, [place] [address] [place] [id number] [place] [address] 92531- 2701 Apr, [facility] [id number] [place] [address] 38371- 1302 Mar, Type 2 diabetes mellitus without complication, [...] Other seasonal allergic rhinitis J30.2 [place] [address] [id number] [place] [address] 18943- 6598 Mar, Paranoid schizophrenia F20.0 and Depression with anxiety F41.8 [place] [address] [id number] [place] [address] 49032- 6039 Feb, [place] [address] [id number] [place] [address] 86548- 8917 Feb, [place] [address] [id number] [place] [address] 85672- 3300 Feb, [place] [address] [id number] [place] [address] 00500- 0812 Feb, [place] [address] [id number] [place] [address] 75546- 7882 Feb, Type 2 diabetes mellitus without complication, without long- term current use of insulin E11.9 ; ARIAS on CPAP G47.33 and Preoperative evaluation to rule out surgical contraindication Z01.818 [facility] [address] [place] [address] 78256- 5468 Feb, Paranoid schizophrenia F20.0 and Depression with anxiety F41.8 [facility] [address] [facility] [id number] [address]- 1249 Jan, [facility] [id number] [place] [address] 64119- 5756 Jan, Paranoid schizophrenia F20.0 and Depression with anxiety F41.8 [facility] [id number] [place] [address] 10402- 2814 17 Jan, 2016 [facility] [id number] [place] [address] 89965- 3199 14 Jan, 2016 Muscle strain T14.8 [facility] [id number] [place] [address] 54791- 5946 10 Jan, 2016 Paranoid schizophrenia F20.0 [facility] [id number] [place] [address] 84468- 6994 Jan, [facility] [id number] [place] [address] [id number] Jan, Paranoid schizophrenia F20.0 and Depression with anxiety F41.8 [facility] [id number] [place] [address] [id number] Jan, [facility] [id number] [place] [address] [phone] Jan, [facility] [id number] [address] 28 Dec, 2015 [facility] [id number] [place] [address] [phone]- [phone] 23 Dec, 2015 Paranoid schizophrenia F20.0 [facility] [id number] [address] 16 Dec, 2015 Paranoid schizophrenia F20.0 and Depression with anxiety F41.8 [facility] [id number] [address] 31 Nov, 2015 [facility] [id number] [place] [address] 24026- [phone] Nov, Paranoid schizophrenia F20.0 [facility] [id number] [place] [address] [id number]- [phone] Nov, Paranoid schizophrenia F20.0 and Depression with anxiety F41.8 [facility] [id number] [place] [address] 37754- [phone] Nov, Type 2 diabetes mellitus without complication, without long- term current use of insulin E11.9 ; Paranoid schizophrenia F20.0 ; Chronic obstructive pulmonary disease, unspecified COPD type J44.9 ; Morbid obesity due to excess calories E66.01 and Parkinsonian tremor G20 [facility] [id number] [place] [address] [id number]- [phone] Nov, [facility] [id number] [place] [address] 45957- 4576 Oct, Paranoid schizophrenia F20.0 [place] [id number] [place] [address] 22574- 5788 Oct, Paranoid schizophrenia F20.0 [place] [id number] [place] [address] 33660- 0705 Oct, Paranoid schizophrenia F20.0 and Depression with anxiety F41.8 [place] [id number] [place] [address] 70516- 3772 Oct, [place] [id number] [place] [address] 09960- 7139 Oct, Paranoid schizophrenia F20.0 and Depression with anxiety F41.8 [place] [id number] [place] [address] 64292- 7610 Oct, Nasal sore J34.89 [place] [id number] [place] [address] 36321- 5343 Oct, Type 2 diabetes mellitus without complication, without long- term current use of insulin E11.9 ; Depression with anxiety F41.8 ; Hypothyroidism, unspecified type E03.9 and History of lupus Z87.39 [facility] [address] [address] Oct, [facility] [id number] [place] [address] 48371- 3114 Oct, Type 2 diabetes mellitus without complication, [...] edema R60.9 and History of lupus Z87.39 [facility] [address] [address]- 6010 Feb, [facility] [id number] [place] [address] [id number]- 7635 Jan, [facility] [id number] [place] [address] 50508- 2574 Jan, [facility] [id number] [address] 7737 Jan, [facility] [address] 4234 Dec, [facility] [id number] [place] [address] 43861- 2893 Nov, [facility] [id number] [address]- 0258 Nov, [facility] [id number] [place] [address] 22736- 9499 Oct, [facility] [address] [address]- 1683 Oct, [facility] [id number] [place] [address]- 3600 17 Oct, 2014 [facility] [address] [facility] [id number] [place] [address]- 6876 Sep, Allergic rhinitis 477.9 [facility] [address] [facility] [id number] [place] [address]- 1331 11 Sep, 2014 Rhinitis, allergic 477.9 [facility] [address] [facility] [id number] [place] [address]- 6005 Sep, Rhinitis, allergic 477.9 [facility] [address] [facility] [id number] [place] [address]- 0521 Sep, [facility] [address] [facility] [id number] [place] [address]- 5709 August, [facility] [id number] [place] [address]- 2193 August, [facility] [address] [facility] [id number] [place] [address]- 4928 August, [facility] [id number] [place] [address]- 1297 Jul, [facility] [id number] [place] [address]- 4741 Jul, [facility] [id number] [place] [address]- 9618 Jul, [facility] [place] [facility] [address] [facility] [id number] [place] [address]- 6660 16 Jun, 2014 [facility] [place] [facility] [address] [facility] [id number] [place] [address]- 3027 16 Jun, 2014 [facility] [place] [facility] [address] [facility] [id number] [place] [address]- 4610 Jun, [facility] [place] [facility] [address] [id number] [place] [address]- 2149 Jun, [facility] [place] [facility] [address] [facility] [id number] [place] [address]- 8586 11 Jun, 2014 [facility] [place] [facility] [address] [id number] [place] [address]- 1895 Jun, 2014 [facility] [place] [facility] [address] [id number] [place] [address]- 9436 Jun, 2014 [facility] [place] [facility] [address] [id number] [place] [address]- 2126 Jun, 2014 [facility] [place] [facility] [address] [id number] [place] [address]- 4919 May, 2014 [facility] [place] [facility] [address] [id number] [place] [address]- 0026 May, 2014 [facility] [place] [facility] [address] [facility] [id number] [place] [address]- 6462 May, 2014 [facility] [place] [facility] [address] [id number] [place] [address]- 6370 May, 2014 [facility] [place] [facility] [address] [id number] [place] [address]- 7851 Apr, [facility] [place] [facility] [address] [id number] [place] [address]- 9724 Mar, [facility] [place] [facility] [address] [facility] [id number] [place] [address]- 8945 Mar, [facility] [place] [facility] [address] [id number] [place] [address]- 8909 Mar, [facility] [place] [facility] [address] [id number] [place] [address]- 3326 Mar, [facility] [place] [facility] [address] [id number] [place] [address]- 7906 Mar, [facility] [place] [facility] [address] [id number] [place] [address]- 9816 Mar, [facility] [place] [facility] [address] [id number] [place] [address]- 5705 Mar, [facility] [place] [facility] [address] [id number] [place] [address]- 8052 Mar, [facility] [place] [facility] [address] [id number] [place] [address]- 8881 Mar, [facility] [place] [facility] [address] [id number] [place] [address]- 2496 Feb, [facility] [place] [facility] [address] [id number] [place] [address]- 1066 Feb, [facility] [place] [facility] [address] [id number] [place] [address]- 1351 Feb, [facility] [place] [facility] [address] [id number] [place] [address]- 9545 Feb, [facility] [place] [facility] [address] [id number] [place] [address]- 3722 Feb, [facility] [place] [facility] [address] [id number] [place] [address]- 3213 Feb, [facility] [place] [facility] [address] [id number] [place] [address]- 9594 Feb, [facility] [place] [facility] [address] [id number] [place] [address]- 9319 Feb, [facility] [place] [facility] [address] [id number] [address]- 5309 Jan, [facility] [place] [facility] [address] [id number], [place] [address]- 3620 Jan, [facility] [place] [facility] [address] [id number] [place] [address]- 4599 16 Jan, 2014 [facility] [place] [facility] [address] [id number] [place] [address]- 4126 16 Jan, 2014 [facility] [place] [facility] [address] [id number] [place] [address]- 7802 15 Jan, 2014 [facility] [place] [facility] [address] [id number] [place] [address]- 5083 15 Jan, 2014 [facility] [place] [facility] [address] [id number] [place] [address]- 1779 14 Jan, 2014 [facility] [place] [facility] [address] [id number] [place] [address]- 3600 14 Jan, 2014 [facility] [place] [facility] [address] [id number] [place] [address]- 9075 14 Jan, 2014 [facility] [place] [facility] [address] [id number] [place] [address]- 5697 14 Jan, 2014 [facility] [place] [facility] [address] [id number] [place] [address]- 6315 18 Dec, 2013 [facility] [place] [facility] [address] [id number] [place] [address]- 7968 18 Dec, 2013 [facility] [place] [facility] [address] [id number] [place] [address]- 4933 10 Dec, 2013 [facility] [place] [facility] [address] [id number] [place] [address]- 3318 10 Dec, 2013 [facility] [place] [facility] [address] [id number] [place] [address]- 3037 Nov, [facility] [place] [facility] [address] [id number] [place] [address]- 2830 Nov, [facility] [place] [facility] [address] [id number] [place] [address]- 6855 Nov, [facility] [place] [facility] [address] [id number] [place] [address]- 4556 Nov, [facility] [place] [facility] [address] [id number] [place] [address]- 0432 Nov, [facility] [place] [facility] [address] [id number] [place] [address]- 0080 Oct, [facility] [place] [facility] [address] [id number] [place] [address]- 4593 Oct, [facility] [place] [facility] [address] [id number] [place] [address]- 5679 Oct, [facility] [place] [facility] [address] [id number] [place] [address]- 5500 Oct, [facility] [place] [facility] [address] [id number] [place] [address]- 9780 Sep, [facility] [place] [facility] [address] [id number] [place] [address]- 9135 Sep, [facility] [place] [facility] [address] [id number] [place] [address]- 3486 Sep, [facility] [place] [facility] [address] [id number] [place] [address]- 7782 Sep, [facility] [place] [facility] [address] [id number] [place] [address]- 4360 Sep, [facility] [place] [facility] [address] [id number] [place] [address]- 8837 Sep, [facility] [place] [facility] [address] [id number] [place] [address]- 2041 Sep, [facility] [place] [facility] [address] [id number] [place] [address]- 3155 Sep, [facility] [place] [facility] [address] [id number] [place] [address]- 8648 August, [facility] [place] [facility] [address] [id number] [place] [address]- 7701 August, [facility] [place] [facility] [address] [id number] [place] [address]- 3280 August, [facility] [place] [facility] [address] [id number] [place] [address]- 0643 August, [facility] [place] [facility] [address] [id number] [place] [address]- 0338 August, [facility] [place] [facility] [address] [id number] [place] [address]- 1422 August, [facility] [place] [facility] [address] [id number] [place] [address]- 8332 August, [facility] [place] [facility] [address] [id number] [place] [address]- 4600 Jul, [facility] [place] [facility] [address] [id number] [place] [address]- 3336 Jul, [facility] [place] [facility] [address] [id number] [place] [address]- 1889 Jul, [facility] [place] [facility] [address] [id number] [place] [address]- 3411 Jul, [facility] [place] [facility] [address] [id number] [place] [address]- 9588 Jul, [facility] [place] [facility] [address] [id number] [place] [address]- 3134 Jul, [facility] [place] [facility] [address] [id number] [place] [address]- 8501 Jul, [facility] [place] [facility] [address] [id number] [place] [address]- 2333 Jul, [facility] [place] [facility] [address] [id number] [place] [address]- 8399 Jul, [facility] [place] [facility] [address] [id number] [place] [address]- 3447 Jul, [facility] [place] [facility] [address] [id number] [place] [address]- 9579 Jul, [facility] [place] [facility] [address] [id number] [place] 7611 Jul, [facility] [place] [facility] [address] [id number] [place] [address]- 8985 Jun, [facility] [place] [facility] [address] [id number] [place] 0001 Jun, [facility] [place] [facility] [address] [id number] [place] [address]- 1509 Jun, [facility] [place] [facility] [address] [id number] [place] [address]- 3060 Jun, [facility] [place] [facility] [address] [id number] [place] [address]- 4568 Jun, [facility] [place] [facility] [address] [id number] [place] [address]- 9634 May, [facility] [place] [facility] [address] [id number] [place] [address]- 9308 May, [facility] [place] [facility] [address] [id number] [place] [address]- 3456 May, [facility] [place] [facility] [address] [id number] [place] [address]- 2113 May, [facility] [place] [facility] [address] [id number] [place] [address]- 3961 May, [facility] [place] [facility] [address] [id number] [place] [address]- 9571 May, [facility] [place] [facility] [address] [facility] [id number] [place] [address]- 8430 May, [facility] [place] [facility] [address] [facility] [id number] [place] [address]- 7814 May, [facility] [place] [facility] [address] [id number] [place] [address]- 7582 Mar, [facility] [place] [facility] [address] [id number] [place] [address]- 4834 Mar, [facility] [place] [facility] [address] [id number] [place] [address]- 7610 Mar, [facility] [place] [facility] [address] [id number] [place] [address]- 4673 Mar, [facility] [place] [facility] [address] [facility] [id number], [place] [address]- 9386 Mar, [facility] [place] [facility] [address] [id number] [place] [address]- 7567 Mar, [facility] [place] [facility] [address] [id number] [place] [address]- 9090 Feb, [facility] [place] [facility] [address] [id number] [place] [address]- 8077 Feb, [facility] [place] [facility] [address] [id number], [place] [address]- 9383 Jan, [facility] [place] [facility] [address] [id number] [place] 1364 Jan, [facility] [place] [facility] [address] [id number], [place] [address]- 7430 Jan, [facility] [place] [facility] [address] [id number], [place] [address]- 7341 Jan, [facility] [place] [facility] [address] [id number], [place] [address]- 1756 Jan, [facility] [place] [facility] [address] [id number], [place] [address]- 6918 Jan, [facility] [place] [facility] [address] [id number], [place] [address]- 1738 Jan, [facility] [place] [facility] [address] [id number], [place] [address]- 8730 Jan, [facility] [place] [facility] [address] [id number], [place] [address]- 5743 08 Jan, 2013 [facility] [place] [facility] [address] [id number], [place] [address]- 2040 Jan, [facility] [place] [facility] [address] [id number], [place] [address]- 4938 16 Dec, 2012 [facility] [place] [facility] [address] [id number], [place] [address]- 7309 Nov, [facility] [place] [facility] [address] [address]- 1996 Nov, [facility] [address] [facility] [id number], [place] [address]- 1154 Nov, [facility] [address] [facility] [id number], [place] [address]- 3099 Oct, [facility] [address] [address]- 4939 Oct, [facility] [address] [facility] [id number], [place] [address]- 6527 August, [facility] [id number] [place] [address] 35277- 9910 Apr, [facility] [address], [place] [address]- 8184 Apr, [facility] [address], [place] [address]- 8469 Feb, [facility] [address], [place] [address]- 4910 Feb, [facility] [address], [place] [address]- 9658 Dec, [facility] [address] [address]- 3247 Dec, [facility] [address] [address]- 4018 Oct, [facility] [id number]- 8735 Oct, [facility] [address] 6327 Oct, [facility] [address] 0198 Jul, IMMUNIZATIONS No Known Immunizations SOCIAL HISTORY [...] illness , last one in [facility] 4 years ago
--- OUTSIDE RECORDS SUMMARY | 2018-09-02 14:23 | XMS REPORT ---
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 Name Role Phone SOTO STRICKLAND Unavailable PROBLEMS Type Condition ICD9-CM Code EHD45-CN Code Onset Dates Condition Status SNOMED Code Problem OAB (overactive bladder) N32.81 Active 221006888 Problem Depression with anxiety F41.8 Active 373282299 Problem Other seasonal allergic rhinitis J30.2 Active 661239859 Problem Chronic obstructive pulmonary disease, unspecified COPD type J44.9 Active 42429894 Problem Tobacco abuse Z72.0 Active 866056007 Problem Morbid obesity due to excess calories E66.01 Active 183293079 Problem Dyslipidemia E78.5 Active 013465132 Problem Hypothyroidism (acquired) E03.9 Active 683868627 Problem Essential hypertension I10 Active 91058217 Problem Diabetic polyneuropathy associated with type 2 diabetes mellitus E11.42 Active 640714186 Problem Type 2 diabetes mellitus with diabetic neuropathic arthropathy, 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 Active 654957274 Problem Type 2 diabetes mellitus without complication, without long-term current use of insulin E11.9 Active 551392089 Problem Paranoid schizophrenia F20.0 Active 80028146 Problem Chronic pain syndrome G89.4 Active 797083216 Problem Migraine without aura and without status migrainosus, not intractable G43.009 Active 591871457 Problem Gastroesophageal reflux disease, esophagitis presence not specified K21.9 Active 076800290 Problem Seasonal allergic rhinitis due to pollen J30.1 Active 92029502 Problem COPD exacerbation J44.1 Active 584442533 Problem Seasonal allergic rhinitis due to other allergic trigger J30.89 Active 026156421 Problem Schizoaffective disorder, depressive type F25.1 Active 14016359 Problem History of lupus Z87.39 Active 119181903 Problem Gastroesophageal reflux disease without esophagitis K21.9 Active 809932867 Problem Menopausal syndrome (hot flashes) N95.1 Active 432553068 Problem Other allergic rhinitis J30.89 Active 668301538 Problem Primary insomnia F51.01 Active 5880492 Problem DM neuro manif type II E11.49 Active 44963612 ALLERGIES No Information ENCOUNTERS Encounter Location Date Diagnosis [place] [address] [address] Dec, [place] [address] [place] [id number] [place] [address] 56620- 9840 Nov, [place] [address] [id number] [place] [address] 28687- 0847 Nov, [place] [id number] [place] [address] 54175- 4661 Oct, Paranoid schizophrenia F20.0 [place] [id number] [address] Oct Chronic pain syndrome G89.4 and Schizoaffective disorder, depressive type F25.1 [place] [id number] [place] [address] 37319- 4573 Oct, Chronic pain syndrome G89.4 and Schizoaffective disorder, depressive type F25.1 [place] [id number] [place] [address] 82864- 4835 Oct, Type 2 diabetes mellitus without complication, without long- term current use of insulin E11.9 [place] [id number] [place] [address] 11059- 1052 Oct, Essential hypertension I10 and DM neuro manif type II E11.49 [place] [id number] [place] [address] 78545- 8711 Oct, [place] [address] [id number] [place] [address] 89520- 3821 Oct, Schizoaffective disorder, depressive type F25.1 and BMI 45.0 -49.9, adult Z68.42 [place] [address] [id number] [place] [address] 23963- 8557 Oct, [facility] [id number] [place] [address] 28316- 4551 Oct, Paranoid schizophrenia F20.0 [facility] [place] [facility] [id number] [place] [address] 72985- 4410 Oct, Type 2 diabetes mellitus with diabetic neuropathic arthropathy, 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 ; Essential hypertension I10 ; Hypothyroidism (acquired) E03.9 ; Chronic obstructive pulmonary disease, unspecified COPD type J44.9 and Diabetic polyneuropathy associated with type 2 diabetes mellitus E11.42 [facility] [facility] [id number] [place] [address] 29167- 1427 Sep, Paranoid schizophrenia F20.0 [facility] [facility] [id number] [place] [address] 95891- 4308 Sep, Paranoid schizophrenia F20.0 and BMI 45.0-49.9, adult Z68.42 [facility] [facility] [id number] [place] [address] 65167- 0081 Sep, Schizoaffective disorder, depressive type F25.1 [facility] [facility] [id number] [place] [address] 75164- 0550 Sep, [facility] [place] [facility] [id number] [place] [address] 10040- 2205 Sep, Paranoid schizophrenia F20.0 [facility] [place] [facility] [id number] [place] [address] 14315- 5796 Sep, [facility] [facility] [id number] [place] [address] 89257- 0389 Sep, Hypothyroidism (acquired) E03.9 [facility] [facility] [id number] [place] [address] 20053- 0273 Sep, [facility] [id number] [place] [address] 32839- 3156 August, Schizoaffective disorder, depressive type F25.1 [facility] [facility] [id number] [place] [address] 67881- 0450 August, [facility] [place] [facility] [address] 84227- 5676 August, [facility] [id number] [place] [address] 20332- 9343 August, [place] [address] 23915- 1433 August, Paranoid schizophrenia F20.0 [place] [address] [id number] [place] [address] 00789- 3612 August, History of lupus Z87.39 and Chronic pain syndrome G89.4 [place] [address] [id number] [place] [address] 76818- 5882 August, [facility] [address] 02326 -7103 August, Seasonal allergic rhinitis, unspecified trigger J30.2 and BMI 45.0-49.9, adult Z68.42 [place] [id number] [place] [address] 08454- 1540 Jul, Schizoaffective disorder, depressive type F25.1 [place] [address] [id number] [place] [address] 94962- 7642 Jul, [place] [id number] [place] [address] 79339- 6924 Jul, Hypothyroidism (acquired) E03.9 [place] [id number] [place] [address] 63827- 3556 Jul, Chronic obstructive pulmonary disease, unspecified COPD type J44.9 and Type 2 diabetes mellitus without complication, without long-term current use of insulin E11.9 [place] [id number] [place] [address] 98045- 9551 Jul, Paranoid schizophrenia F20.0 [place] [id number] [place] [address] 91076- 5848 Jun, Hypothyroidism (acquired) E03.9 and Seasonal allergic rhinitis due to pollen J30.1 [facility] [id number] [place] [address] 51076 -9520 Jun, Shortness of breath at rest R06.02 ; COPD exacerbation J44.1 and BMI 45.0-49.9, adult Z68.42 [facility] [address] 91321- 4887 Jun, [facility] [address] 92323- 5817 Jun, Paranoid schizophrenia F20.0 ; Depression with anxiety F41.8 and BMI 45.0-49.9, adult Z68.42 [facility] [address] 12026- 9067 20 Jun, 2017 Schizoaffective disorder, depressive type F25.1 [facility] [address] [id number] Jun, Dental caries K02.9 [place] [address] 52876- 4438 Jun, Paranoid schizophrenia F20.0 [facility] [address] [id number] [place] [address] 74223- 6085 May, Migraine without aura and without status migrainosus, not intractable G43.009 ; DM neuro manif type II E11.49 and Type 2 diabetes mellitus without complication, without long-term current use of insulin E11.9 [facility] [address] 18475- 0399 May, Migraine without aura and without status migrainosus, not intractable G43.009 [facility] [id number] [place] [address] 76768- 3088 May, Depression with anxiety F41.8 [facility] [address] [id number] [place] [address] [id number] May, [facility] [id number] [place] [address] 94092- 1570 May, [facility] [id number] [place] [address] 91498- 7577 May, [facility] [facility] [id number] [place] [address] 85891- 4687 May, Hypothyroidism (acquired) E03.9 [place] [address] [id number] [place] [address] 21343- 6088 May, Paranoid schizophrenia F20.0 [place] [address] 91510- 2776 May, Type 2 diabetes mellitus without complication, [...] N32.81 and Controlled substance agreement signed Z79.899 [place] [id number] [place] [address] 92985- 8042 May, Controlled substance agreement signed Z79.899 [place] [id number] [place] [address] 09547- 3362 Apr, [facility] [address] [id number] [place] [address] [id number] Apr, Dental examination Z01.20 [place] [address] [id number] [place] [address] 47634- 4995 Apr, Paranoid schizophrenia F20.0 [facility] [facility] [id number] [place] [address] 98773- 9918 Apr, Hypertension, unspecified type I10 [facility] [id number] [place] [address] 35703- 8475 Apr, Paranoid schizophrenia F20.0 [facility] [id number] [place] [address] 29605- 0530 Apr, [facility] [facility] [id number] [place] [address] 26052- 2701 Apr, Tobacco abuse Z72.0 [facility] [address] 93094- 9301 Apr, [facility] [facility] [id number] [place] [address] 72024- 6939 Mar, [facility] [id number] [place] [address] 59978- 6454 Mar, Paranoid schizophrenia F20.0 and BMI 45.0-49.9, adult Z68.42 [facility] [address] [id number] [place] [address] 91580- 8069 Mar, Schizoaffective disorder, depressive type F25.1 [facility] [id number] [place] [address] 75644- 8082 Mar, [facility] [id number] [place] [address] 07902- 1272 Mar, Hypothyroidism, unspecified type E03.9 [facility] [id number] [place] [address] 09492- 0513 Mar, Schizoaffective disorder, depressive type F25.1 [facility] [id number] [place] [address] 30917 -3462 Feb, Gastroenteritis K52.9 and BMI 45.0-49.9, adult Z68.42 [facility] [id number] [place] [address] 36003- 4944 Feb, [place] [address] 04634- 2634 Feb, [place] [address] 27159- 9934 Feb, [place] [address] 60578- 7818 Feb, [place] [address] 46103- 6851 Feb, Paranoid schizophrenia F20.[address] 81874- 2210 Feb, Gastroesophageal reflux disease without esophagitis K21.9 ; Other seasonal allergic rhinitis J30.2 ; Other allergic rhinitis J30.89 ; Tobacco abuse Z72.0 and BMI 40.0-44.9, adult Z68.[address] 23967- 7378 Feb, Onychomycosis B35.1 ; Callus of foot L84 and DM neuro manif type II E11.[address] 68688- 5333 Jan, Chronic allergic rhinitis J30.[address] 63110- 0966 Jan, [place] [address] 03668- 3765 Jan, Schizoaffective disorder, depressive type F25.1 [place] [address] 31267- 5774 Jan, [facility] [address] 84337 -8374 Jan, Sore throat J02.9 and Seasonal allergic rhinitis due to other allergic trigger J30.89 [place] [address] [place] [address]- 5586 Jan, [facility] [id number] [place] [address] 89565- 3784 Jan, [facility] [address] [id number] [place] [address] 12792 -4184 Jan, Chronic allergic rhinitis J30.9 [facility] [id number] [place] [address] 50864- 0904 Dec, Paranoid schizophrenia F20.0 ; Primary insomnia F51.01 and Schizoaffective disorder, depressive type F25.1 [facility] [address] 82180- 7044 Dec, Chronic pain syndrome G89.4 ; Cervicalgia of occipito- atlanto-axial region M54.2 ; Menopausal syndrome (hot flashes) N95.1 and Encounter for immunization Z23 [facility] [id number] [place] [address] 40564- 6136 14 Dec, 2016 [facility] [id number] [place] [address] 07463- 4366 Dec, [facility] [facility] [id number] [place] [address] 57963- 4547 Dec, Paranoid schizophrenia F20.0 [facility] [facility] [id number] [place] [address] 51802- 4042 Dec, Schizoaffective disorder, depressive type F25.1 [facility] [facility] [id number] [place] [address] 94986- 1818 Nov, Hypothyroidism, unspecified type E03.9 [facility] [id number] [place] [address] 60144 -6577 Nov, Acute seasonal allergic rhinitis due to other allergen J30.89 [facility] [facility] [id number] [place] [address] 49386- 6477 Nov, [facility] [facility] [address] [place] [address] [place] [address]- 2197 Nov, Hypothyroidism, unspecified type E03.9 and Other elevated white blood cell (WBC) count D72.828 [place] [id number] [place] [address] 52358- 6265 Nov, Schizoaffective disorder, depressive type F25.1 [place] [id number] [place] [address] 08370- 2443 Nov, Paranoid schizophrenia F20.0 [place] [address] [id number] [place] [address] 56682- 5982 Nov, Type 2 diabetes mellitus without complication, without long- term current use of insulin E11.9 ; Morbid obesity due to excess calories E66.01 and Chronic pain syndrome G89.4 [place] [address] [id number] [place] [address] 97271- 3025 Oct, Paranoid schizophrenia F20.0 [place] [address] [place] [id number] [place] [address] 87859- 2213 Oct, [place] [address] [id number] [place] [address] 53038- 8509 Oct, Schizoaffective disorder, depressive type F25.1 [place] [address] [place] [id number] [place] [address] 40030- 9652 Oct, Hypothyroidism, unspecified type E03.9 and Other elevated white blood cell (WBC) count D72.828 [place] [address] [id number] [place] [address] 02529- 1359 Oct, Morbid obesity due to excess calories E66.01 ; Chronic obstructive pulmonary disease, unspecified COPD type J44.9 ; History of lupus Z87.39 ; Hypothyroidism, unspecified type E03.9 ; Gastroesophageal reflux disease without esophagitis K21.9 ; Primary insomnia F51.01 and Chronic pain syndrome G89.4 [place] [id number] [place] [address] 58284- 0830 Sep, [facility] [facility] [address] [address]- 9715 Sep, [facility] [facility] [id number] [place] [address] 19604- 1130 Sep, [facility] [facility] [id number] [place] [address] 65887- 1549 Sep, Paranoid schizophrenia F20.0 [facility] [facility] [id number] [place] [address] 58403- 7635 Sep, [facility] [facility] [id number] [place] [address] 93650- 9150 Sep, Paranoid schizophrenia F20.0 [facility] [facility] [id number] [place] [address] 33073- 1575 Sep, [facility] [facility] [id number] [place] [address] 26634- 0395 August, Paranoid schizophrenia F20.0 [facility] [facility] [id number] [place] [address] 67371- 6053 Jul, [facility] [facility] [id number] [place] [address] 92481- 6629 Jul, Type 2 diabetes mellitus without complication, without long- term current use of insulin E11.9 ; Morbid obesity due to excess calories E66.01 ; Depression with anxiety F41.8 ; Hypothyroidism, unspecified type E03.9 ; Seasonal allergic rhinitis due to other allergic trigger J30.89 ; Pain, dental K08.89 and Gastroesophageal reflux disease without esophagitis K21.9 [facility] [address] [id number] Jul, Dental examination Z01.20 [facility] [facility] [id number] [place] [address] 16393- 8781 07 Jul, 2016 Paranoid schizophrenia F20.0 [facility] [place] [facility] [id number] [place] [address] 71176- 6143 Jun, Paranoid schizophrenia F20.0 and Depression with anxiety F41.8 [place] [address] [id number] [place] [address] 57845- 8305 10 Jun, 2016 Paranoid schizophrenia F20.0 and Depression with anxiety F41.8 [place] [address] [place] [id number] [place] [address] 71009- 2320 09 Jun, [address] 62248- 6512 Jun, [facility] [place] [id number] [place] [address] 11362 -0437 Jun, Seasonal allergic rhinitis due to other allergic trigger J30.89 [facility] [place] [id number] [place] [address] 00305 -7254 May, Sore throat J02.9 ; Other viral agents as the cause of diseases classified elsewhere B97.89 and Acute upper respiratory infection, unspecified J06.9 [place] [address] [id number] [place] [address] 90074- 9980 May, Paranoid schizophrenia F20.0 and Depression with anxiety F41.8 [place] [id number] [place] [address] 70008- 4855 Apr, Other seasonal allergic rhinitis J30.2 [place] [id number] [place] [address] 15807- 2822 Apr, Paranoid schizophrenia F20.0 and Depression with anxiety F41.8 [facility] [place] [id number] [place] [address] 48980 -7016 Apr, Bronchitis J40 and Sore throat J02.[address] 09022- 4957 Apr, Type 2 diabetes mellitus without complication, without long- term current use of insulin E11.9 [facility] [place] [id number] [place] [address] 80032 -5099 Apr, Bronchitis J40 [place] [id number] [place] [address] 90539- 5168 Apr, [place] [address] [place] [id number] [place] [address] 56659- 1629 Apr, [facility] [place] [facility] [id number] [place] [address] 29954- 4999 Mar, Type 2 diabetes mellitus without complication, [...] R60.9 and Other seasonal allergic rhinitis J30.2 [place] [address] [id number] [place] [address] 25910- 2688 Mar, Paranoid schizophrenia F20.0 and Depression with anxiety F41.8 [place] [address] [id number] [place] [address] 46766- 9896 Feb, [place] [id number] [place] [address] 37434- 2865 Feb, [place] [address] [id number] [place] [address] 91773- 1631 Feb, [place] [id number] [place] [address] 22484- 2979 Feb, [place] [id number] [place] [address] 84669- 1088 Feb, Type 2 diabetes mellitus without complication, without long- term current use of insulin E11.9 ; ARIAS on CPAP G47.33 and Preoperative evaluation to rule out surgical contraindication Z01.818 [facility] [place] [facility] [id number] [place] [address] 33168- 9987 Feb, Paranoid schizophrenia F20.0 and Depression with anxiety F41.8 [facility] [place] [facility] [address] [facility] [id number] [address]- 5554 Jan, [facility] [place] [facility] [address] [place] [id number] [place] [address] 38135- 4809 Jan, Paranoid schizophrenia F20.0 and Depression with anxiety F41.8 [facility] [place] [facility] [id number] [place] [address] 05106- 4545 17 Jan, 2016 [facility] [place] [facility] [id number] [place] [address] 66520- 9921 14 Jan, 2016 Muscle strain T14.8 [facility] [place] [facility] [id number] [place] [address] 19331- 9562 10 Jan, 2016 Paranoid schizophrenia F20.0 [facility] [place] [facility] [id number] [place] [address] 50154- 4602 Jan, [facility] [place] [facility] [id number] [place] [address] 82737- 5030 Jan, Paranoid schizophrenia F20.0 and Depression with anxiety F41.8 [facility] [place] [facility] [id number] [place] [address] 30293- 0413 Jan, [facility] [place] [facility] [id number] [place] [address] 86237- 8164 Jan, [facility] [place] [facility] [id number] [address]- 8870 28 Dec, 2015 [facility] [place] [facility] [id number] [place] [address] 36412- 0633 23 Dec, 2015 Paranoid schizophrenia F20.0 [facility] [id number] [address] 16 Dec, 2015 Paranoid schizophrenia F20.0 and Depression with anxiety F41.8 [facility] [id number] [address] 31 Nov, 2015 [facility] [id number] [place] [address] 01055- 3570 Nov, Paranoid schizophrenia F20.0 [facility] [id number] [place] [address] 85729- 7085 Nov, Paranoid schizophrenia F20.0 and Depression with anxiety F41.8 [facility] [id number] [place] [address] 25179- 8290 Nov, Type 2 diabetes mellitus without complication, without long- term current use of insulin E11.9 ; Paranoid schizophrenia F20.0 ; Chronic obstructive pulmonary disease, unspecified COPD type J44.9 ; Morbid obesity due to excess calories E66.01 and Parkinsonian tremor G20 [place] [facility] [id number] [place] [address] 35741- 5911 Nov, [facility] [id number] [place] [address] 40882- 3745 Oct, Paranoid schizophrenia F20.0 [facility] [id number] [place] [address] 34023- 2817 Oct, Paranoid schizophrenia F20.0 [facility] [id number] [place] [address] 02963- 5792 Oct, Paranoid schizophrenia F20.0 and Depression with anxiety F41.8 [facility] [id number] [place] [address] 09261- 7124 Oct, [facility] [id number] [place] [address] 81278- 3767 Oct, Paranoid schizophrenia F20.0 and Depression with anxiety F41.8 [facility] [id number] [place] [address] 36266- 2483 Oct, Nasal sore J34.89 [facility] [id number] [place] [address] 85554- 2078 Oct, Type 2 diabetes mellitus without complication, without long- term current use of insulin E11.9 ; Depression with anxiety F41.8 ; Hypothyroidism, unspecified type E03.9 and History of lupus Z87.39 [facility] [place] [facility] [address] [address] [address] Oct, [facility] [place] [facility] [id number] [place] [address]- 2523 Oct, Type 2 diabetes mellitus without complication, [...] History of lupus Z87.39 [facility] [place] [facility] [address] [address] 1592 Feb, [facility] [place] [facility] [id number] [place] [address] [id number]- 0235 Jan, [facility] [place] [facility] [id number] [place] [address] 9[address]33- 4688 Jan, [facility] [place] [facility] [id number] [id number] [address] Jan, [facility] [place] [facility] [address] [address] [address] Dec, [facility] [place] [facility] [id number] [place] [address]- 4385 Nov, [facility] [place] [facility] [id number] [address] 8824 Nov, [facility] [place] [facility] [id number] [place] [address] 9[address]- 0816 Oct, [facility] [place] [facility] [address] [address] 2830 Oct, [facility] [place] [facility] [id number] [place] [address] 7380 17 Oct, 2014 [facility] [address] [facility] [id number] [place] [address]- 1674 Sep, Allergic rhinitis 477.9 [facility] [address] [facility] [id number] [place] [address]- 8856 11 Sep, 2014 Rhinitis, allergic 477.9 [facility] [address] [facility] [id number] [place] [address]- 3947 Sep, Rhinitis, allergic 477.9 [facility] [address] [facility] [id number] [place] [address]- 8268 Sep, [facility] [address] [facility] [id number] [place] [address]- 9239 August, [facility] [address] [id number] [place] [address]- 5950 August, [facility] [address] [facility] [id number] [place] [address]- 3237 August, [facility] [address] [id number] [place] [address]- 2536 Jul, [facility] [address] [id number] [place] [address]- 6994 Jul, [facility] [address] [id number] [place] [address]- 9759 Jul, [facility] [place] [facility] [address] [facility] [id number] [place] [address]- 5529 16 Jun, 2014 [facility] [place] [facility] [address] [facility] [id number] [place] [address]- 2804 16 Jun, 2014 [facility] [place] [facility] [address] [facility] [id number] [place] [address]- 5193 Jun, [facility] [place] [facility] [address] [id number] [place] [address]- 8260 Jun, [facility] [place] [facility] [address] [facility] [id number] [place] [address]- 8913 11 Jun, 2014 [facility] [place] [facility] [address] [id number] [place] [address]- 3157 Jun, 2014 [facility] [place] [facility] [address] [id number] [place] [address]- 7456 Jun, 2014 [facility] [place] [facility] [address] [id number] [place] [address]- 6365 Jun, 2014 [facility] [place] [facility] [address] [id number] [place] [address]- 5954 May, 2014 [facility] [place] [facility] [address] [id number] [place] [address]- 4296 May, 2014 [facility] [place] [facility] [address] [facility] [id number] [place] [address]- 9488 May, 2014 [facility] [place] [facility] [address] [id number] [place] [address]- 2471 May, 2014 [facility] [place] [facility] [address] [id number] [place] [address]- 3080 Apr, [facility] [place] [facility] [address] [id number] [place] [address]- 0273 Mar, [facility] [place] [facility] [address] [facility] [id number] [place] [address]- 1118 Mar, [facility] [place] [facility] [address] [id number] [place] [address]- 1878 Mar, [facility] [place] [facility] [address] [id number] [place] [address]- 5186 Mar, [facility] [place] [facility] [address] [id number] [place] [address]- 0966 Mar, [facility] [place] [facility] [address] [id number] [place] [address]- 7886 Mar, [facility] [place] [facility] [address] [id number] [place] [address]- 6037 Mar, [facility] [place] [facility] [address] [id number] [place] [address]- 3535 Mar, [facility] [place] [facility] [address] [id number] [place] [address]- 6634 Mar, [facility] [place] [facility] [address] [id number] [place] [address]- 2503 Feb, [facility] [place] [facility] [address] [id number] [place] [address]- 7293 Feb, [facility] [place] [facility] [address] [id number] [place] [address]- 7680 Feb, [facility] [place] [facility] [address] [id number] [place] [address]- 4802 Feb, [facility] [place] [facility] [address] [id number] [place] [address]- 5158 Feb, [facility] [place] [facility] [address] [id number] [place] [address]- 7639 Feb, [facility] [place] [facility] [address] [id number] [place] [address]- 9881 Feb, [facility] [place] [facility] [address] [id number] [place] [address]- 1675 Feb, [facility] [place] [facility] [address] [id number] [address]- 2056 Jan, [facility] [place] [facility] [address] [id number] [place] [address]- 9532 Jan, [facility] [place] [facility] [address] [id number] [place] [address]- 1292 16 Jan, 2014 [facility] [place] [facility] [address] [id number] [place] [address]- 4383 16 Jan, 2014 [facility] [place] [facility] [address] [id number] [place] [address]- 0019 15 Jan, 2014 [facility] [place] [facility] [address] [id number] [place] [address]- 5991 15 Jan, 2014 [facility] [place] [facility] [address] [id number] [place] [address]- 0889 14 Jan, 2014 [facility] [place] [facility] [address] [id number] [place] [address]- 7793 14 Jan, 2014 [facility] [place] [facility] [address] [id number] [place] [address]- 8246 14 Jan, 2014 [facility] [place] [facility] [address] [id number] [place] [address]- 0484 14 Jan, 2014 [facility] [place] [facility] [address] [id number] [place] [address]- 9494 18 Dec, 2013 [facility] [place] [facility] [address] [id number] [place] [address]- 0489 18 Dec, 2013 [facility] [place] [facility] [address] [id number] [place] [address]- 3141 10 Dec, 2013 [facility] [place] [facility] [address] [id number] [place] [address]- 8665 10 Dec, 2013 [facility] [place] [facility] [address] [id number] [place] [address]- 3930 Nov, [facility] [place] [facility] [address] [id number] [place] [address]- 1536 Nov, [facility] [place] [facility] [address] [id number] [place] [address]- 4824 Nov, [facility] [place] [facility] [address] [id number] [place] [address]- 8841 Nov, [facility] [place] [facility] [address] [id number] [place] [address]- 0170 Nov, [facility] [place] [facility] [address] [id number] [place] [address]- 5214 Oct, [facility] [place] [facility] [address] [id number] [place] [address]- 8596 Oct, [facility] [place] [facility] [address] [id number] [place] [address]- 8868 Oct, [facility] [place] [facility] [address] [id number] [place] [address]- 3269 Oct, [facility] [place] [facility] [address] [id number] [place] [address]- 4848 Sep, [facility] [place] [facility] [address] [id number] [place] [address]- 6574 Sep, [facility] [place] [facility] [address] [id number] [place] [address]- 0259 Sep, [facility] [place] [facility] [address] [id number] [place] [address]- 3463 Sep, [facility] [place] [facility] [address] [id number] [place] [address]- 3357 Sep, [facility] [place] [facility] [address] [id number] [place] [address]- 3025 Sep, [facility] [place] [facility] [address] [id number] [place] [address]- 8744 Sep, [facility] [place] [facility] [address] [id number] [place] [address]- 1113 Sep, [facility] [place] [facility] [address] [id number] [place] [address]- 0070 August, [facility] [place] [facility] [address] [id number] [place] [address]- 3360 August, [facility] [place] [facility] [address] [id number] [place] [address]- 8521 August, [facility] [place] [facility] [address] [id number] [place] [address]- 5356 August, [facility] [place] [facility] [address] [id number] [place] [address]- 6651 August, [facility] [place] [facility] [address] [id number] [place] [address]- 9063 August, [facility] [place] [facility] [address] [id number] [place] [address]- 2419 August, [facility] [place] [facility] [address] [id number] [place] [address]- 2582 Jul, [facility] [place] [facility] [address] [id number] [place] [address]- 9866 Jul, [facility] [place] [facility] [address] [id number] [place] [address]- 5489 Jul, [facility] [place] [facility] [address] [id number] [place] [address]- 7267 Jul, [facility] [place] [facility] [address] [id number] [place] [address]- 6136 Jul, [facility] [place] [facility] [address] [id number] [place] [address]- 1277 Jul, [facility] [place] [facility] [address] [id number] [place] [address]- 4426 Jul, [facility] [place] [facility] [address] [id number] [place] [address]- 0442 Jul, [facility] [place] [facility] [address] [id number] [place] [address]- 4313 Jul, [facility] [place] [facility] [address] [id number] [place] [address]- 8351 Jul, [facility] [place] [facility] [address] [id number] [place] [address]- 4215 Jul, [facility] [place] [facility] [address] [id number] [place] 4600 Jul, [facility] [place] [facility] [address] [id number] [place] [address]- 9106 Jun, [facility] [place] [facility] [address] [id number] [place] 1968 Jun, [facility] [place] [facility] [address] [id number] [place] [address]- 0009 Jun, [facility] [place] [facility] [address] [id number] [place] [address]- 4336 Jun, [facility] [place] [facility] [address] [id number] [place] [address]- 6952 Jun, [facility] [place] [facility] [address] [id number] [place] [address]- 1423 May, [facility] [place] [facility] [address] [id number] [place] [address]- 6247 May, [facility] [place] [facility] [address] [id number] [place] [address]- 5454 May, [facility] [place] [facility] [address] [id number] [place] [address]- 4473 May, [facility] [place] [facility] [address] [id number] [place] [address]- 5142 May, [facility] [place] [facility] [address] [id number] [place] [address]- 7784 May, [facility] [place] [facility] [address] [facility] [id number] [place] [address]- 9611 May, [facility] [place] [facility] [address] [facility] [id number] [place] [address]- 6069 May, [facility] [place] [facility] [address] [id number] [place] [address]- 7156 Mar, [facility] [place] [facility] [address] [id number] [place] [address]- 4249 Mar, [facility] [place] [facility] [address] [id number] [place] [address]- 1309 Mar, [facility] [place] [facility] [address] [id number] [place] [address]- 2432 Mar, [facility] [place] [facility] [address] [facility] [id number] [place] [address]- 9056 Mar, [facility] [place] [facility] [address] [id number] [place] [address]- 6524 Mar, [facility] [place] [facility] [address] [id number] [place] [address]- 8301 Feb, [facility] [place] [facility] [address] [id number] [place] [address]- 0905 Feb, [facility] [place] [facility] [address] [id number] [place] [address]- 5537 Jan, [facility] [place] [facility] [address] [id number] [place] 8316 Jan, [facility] [place] [facility] [address] [id number] [place] [address]- 4467 Jan, [facility] [place] [facility] [address] [id number] [place] [address]- 5078 Jan, [facility] [place] [facility] [address] [id number] [place] [address]- 0339 Jan, [facility] [place] [facility] [address] [id number] [place] [address]- 6043 Jan, [facility] [place] [facility] [address] [id number] [place] [address]- 5937 Jan, [facility] [place] [facility] [address] [id number] [place] [address]- 4673 Jan, [facility] [place] [facility] [address] [id number] [place] [address]- 2953 08 Jan, 2013 [facility] [place] [facility] [address] [id number] [place] [address]- 9510 Jan, [facility] [place] [facility] [address] [id number] [place] [address]- 5437 16 Dec, 2012 [facility] [place] [facility] [address] [id number] [place] [address]- 8200 Nov, [facility] [place] [facility] [address] [facility] [id number] [place] [address] 2546 Nov, [facility] [place] [facility] [address] [facility] [id number] [place] [address]- 9266 Nov, [facility] [place] [facility] [address] [facility] [id number] [place] [address]- 1194 Oct, [facility] [place] [facility] [address] [facility] [id number] [place] [address]- 1126 Oct, [facility] [place] [facility] [address] [facility] [id number] [place] [address]- 9170 August, [facility] [place] [facility] [address] [facility] [id number] [place] [address]- 8507 Apr, [facility] [place] [facility] [address] [facility] [id number] [place] [address]- 9410 Apr, [facility] [place] [facility] [id number] [address]- 0226 Feb, [facility] [place] [facility] [address] [facility] [id number] [place] [address]- 1821 Feb, [facility] [place] [facility] [id number] [address]- 3221 Dec, [facility] [place] [facility] [address] [id number] [address]- 5164 Dec, [facility] [place] [facility] [address] [id number] [address]- 7208 Oct, [facility] [place] [facility] [address] [facility] [id number] [place] [address]- 6122 Oct, [facility] [place] [facility] [id number] [address]- 0578 Oct, [facility] [place] [facility] [address] [id number] [address]- 0319 Jul, IMMUNIZATIONS No Known Immunizations SOCIAL HISTORY Never Assessed REASON FOR VISIT Controlled Med Refill PLAN OF CARE VITAL SIGNS MEDICATIONS Medication Instructions Dosage Frequency Start Date End Date Duration Status Ky 5 mg Orally Once a day 1 [...] for psychosis/mental illness , last one in [facility] 4 years ago
--- OUTSIDE RECORDS SUMMARY | 2018-09-02 14:24 | XMS REPORT ---
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 Role Phone SOTO STRICKLAND Unavailable PROBLEMS Type Condition ICD9-CM Code IHT36-LH Code Onset Dates Condition Status SNOMED Code Problem OAB (overactive bladder) N32.81 Active 739828148 Problem Depression with anxiety F41.8 Active 724565766 Problem Other seasonal allergic rhinitis J30.2 Active 804470617 Problem Chronic obstructive pulmonary disease, unspecified COPD type J44.9 Active 56239209 Problem Tobacco abuse Z72.0 Active 918615108 Problem Morbid obesity due to excess calories E66.01 Active 402197580 Problem Dyslipidemia E78.5 Active 115060144 Problem Hypothyroidism (acquired) E03.9 Active 631559092 Problem Essential hypertension I10 Active 83755289 Problem Diabetic polyneuropathy associated with type 2 diabetes mellitus E11.42 Active 018217490 Problem Type 2 diabetes mellitus with diabetic neuropathic arthropathy, 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 Active 634132955 Problem Type 2 diabetes mellitus without complication, without long-term current use of insulin E11.9 Active 518215993 Problem Paranoid schizophrenia F20.0 Active 79810856 Problem Chronic pain syndrome G89.4 Active 666021054 Problem Migraine without aura and without status migrainosus, not intractable G43.009 Active 537016285 Problem Gastroesophageal reflux disease, esophagitis presence not specified K21.9 Active 574149354 Problem Seasonal allergic rhinitis due to pollen J30.1 Active 35829354 Problem COPD exacerbation J44.1 Active 065429900 Problem Seasonal allergic rhinitis due to other allergic trigger J30.89 Active 723588912 Problem Schizoaffective disorder, depressive type F25.1 Active 64021440 Problem History of lupus Z87.39 Active 374528785 Problem Gastroesophageal reflux disease without esophagitis K21.9 Active 983690925 Problem Menopausal syndrome (hot flashes) N95.1 Active 562884650 Problem Other allergic rhinitis J30.89 Active 203573619 Problem Primary insomnia F51.01 Active 1952391 Problem DM neuro manif type II E11.49 Active 66083680 ALLERGIES No Information ENCOUNTERS Encounter Location Date Diagnosis [place] [id number] [address] Dec, [place] [address] [place] [id number] [place] [address] 60029- 4986 Nov, [place] [address] [place] [id number] [place] [address] 44265- 8793 Nov, [place] [address] [place] [id number] [place] [address] 39720- 0310 Oct, Paranoid schizophrenia F20.0 [place] [id number] [address] Oct Chronic pain syndrome G89.4 and Schizoaffective disorder, depressive type F25.1 [place] [id number] [place] [address] 81330- 1877 Oct, Chronic pain syndrome G89.4 and Schizoaffective disorder, depressive type F25.1 [place] [id number] [place] [address] 57643- 6311 Oct, Type 2 diabetes mellitus without complication, without long- term current use of insulin E11.9 [place] [id number] [place] [address] 11667- 1716 Oct, Essential hypertension I10 and DM neuro manif type II E11.49 [place] [id number] [place] [address] 08052- 1874 Oct, [place] [address] [place] [id number] [place] [address] 20033- 9727 Oct, Schizoaffective disorder, depressive type F25.1 and BMI 45.0 -49.9, adult Z68.42 [place] [address] [place] [id number] [place] [address] 04800- 4230 Oct, [facility] [address] [place] [id number] [place] [address] 19997- 5157 Oct, Paranoid schizophrenia F20.0 [facility] [address] [place] [id number] [place] [address] 78165- 2457 Oct, Type 2 diabetes mellitus with diabetic neuropathic arthropathy, 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 ; Essential hypertension I10 ; Hypothyroidism (acquired) E03.9 ; Chronic obstructive pulmonary disease, unspecified COPD type J44.9 and Diabetic polyneuropathy associated with type 2 diabetes mellitus E11.42 [facility] [address] [place] [id number] [place] [address] 84605- 3436 Sep, Paranoid schizophrenia F20.0 [facility] [address] [place] [id number] [place] [address] 84764- 5401 Sep, Paranoid schizophrenia F20.0 and BMI 45.0-49.9, adult Z68.42 [facility] [address] [place] [id number] [place] [address] 91453- 1810 Sep, Schizoaffective disorder, depressive type F25.1 [facility] [address] [place] [id number] [place] [address] 44040- 9185 Sep, [facility] [address] [place] [address] [id number] [place] [address] 84325- 7535 Sep, Paranoid schizophrenia F20.0 [facility] [address] [place] [id number] [place] [address] 06610- 2787 Sep, [facility] [address] [address] [id number] [place] [address] 63722- 8119 Sep, Hypothyroidism (acquired) E03.9 [facility] [address] [place] [id number] [place] [address] 00658- 0000 Sep, [facility] [address] [place] [address] [id number] [place] [address] 67189- 4342 August, Schizoaffective disorder, depressive type F25.1 [facility] [address] [place] [id number] [place] [address] 16730- 1437 August, [facility] [address] 66109- 7145 August, [facility] [address] [place] [id number] [place] [address] 35031- 2384 August, [place] [address] 24976- 5750 August, Paranoid schizophrenia F20.0 [place] [address] [place] [id number] [place] [address] 49399- 1487 August, History of lupus Z87.39 and Chronic pain syndrome G89.4 [place] [address] [place] [id number] [place] [address] 16422- 0481 August, [facility] [address] 31[address] -[address]246 August, Seasonal allergic rhinitis, unspecified trigger J30.2 and BMI 45.0-49.9, adult Z68.42 [place] [address] [place] [id number] [place] [address] 01078- 5643 Jul, Schizoaffective disorder, depressive type F25.1 [place] [address] [place] [id number] [place] [address] 75019- 6119 Jul, [place] [address] [place] [id number] [place] [address] 13112- 9594 Jul, Hypothyroidism (acquired) E03.9 [place] [address] [place] [id number] [place] [address] 31805- 4650 Jul, Chronic obstructive pulmonary disease, unspecified COPD type J44.9 and Type 2 diabetes mellitus without complication, without long-term current use of insulin E11.9 [place] [address] [place] [id number] [place] [address] 72941- 8991 Jul, Paranoid schizophrenia F20.0 [place] [address] [place] [id number] [place] [address] 58275- 1777 Jun, Hypothyroidism (acquired) E03.9 and Seasonal allergic rhinitis due to pollen J30.1 [facility] [address] [place] [id number] [place] [address] 18409 -5702 Jun, Shortness of breath at rest R06.02 ; COPD exacerbation J44.1 and BMI 45.0-49.9, adult Z68.42 [facility] [address] 94246- 7386 Jun, [facility] [address] 99028- 8301 Jun, Paranoid schizophrenia F20.0 ; Depression with anxiety F41.8 and BMI 45.0-49.9, adult Z68.42 [facility] [address] 98072- 9418 20 Jun, 2017 Schizoaffective disorder, depressive type F25.1 [facility] [address] [id number] Jun, Dental caries K02.9 [place] [address] 20784- 3494 Jun, Paranoid schizophrenia F20.0 [facility] [address] [place] [id number] [place] [address] 96748- 3202 May, Migraine without aura and without status migrainosus, not intractable G43.009 ; DM neuro manif type II E11.49 and Type 2 diabetes mellitus without complication, without long-term current use of insulin E11.9 [facility] [address] 66280- 3353 May, Migraine without aura and without status migrainosus, not intractable G43.009 [facility] [address] [place] [id number] [place] [address] 77447- 9773 May, Depression with anxiety F41.8 [facility] [address] [place] [id number] [place] [address] [id number] May, [facility] [address] [place] [id number] [place] [address] 60260- 4045 May, [facility] [address] [place] [id number] [place] [address] 17245- 2452 May, [facility] [address] [place] [id number] [place] [address] 12986- 4655 May, Hypothyroidism (acquired) E03.9 [place] [address] [place] [id number] [place] [address] 09886- 9076 May, Paranoid schizophrenia F20.0 [place] [address] 42377- 1892 May, Type 2 diabetes mellitus without complication, [...] N32.81 and Controlled substance agreement signed Z79.899 [place] [address] [place] [id number] [place] [address] 41408- 0817 May, Controlled substance agreement signed Z79.899 [place] [address] [place] [id number] [place] [address] 48124- 5606 Apr, [facility] [address] [place] [id number] [place] [address] [id number] Apr, Dental examination Z01.20 [place] [address] [place] [id number] [place] [address] 14719- 9992 Apr, Paranoid schizophrenia F20.0 [facility] [id number] [place] [address] 04101- 0958 Apr, Hypertension, unspecified type I10 [facility] [address] [place] [id number] [place] [address] 22429- 1598 Apr, Paranoid schizophrenia F20.0 [facility] [address] [place] [id number] [place] [address] 21026- 3789 Apr, [facility] [address] [place] [id number] [place] [address] 03953- 1053 Apr, Tobacco abuse Z72.0 [facility] [address] 84508- 8991 Apr, [facility] [address] [place] [id number] [place] [address] 54951- 6756 Mar, [facility] [address] [place] [id number] [place] [address] 87772- 8618 Mar, Paranoid schizophrenia F20.0 and BMI 45.0-49.9, adult Z68.42 [facility] [address] [place] [id number] [place] [address] 61247- 7764 Mar, Schizoaffective disorder, depressive type F25.1 [facility] [address] [place] [id number] [place] [address] 58823- 1028 Mar, [facility] [address] [place] [id number] [place] [address] 25398- 9381 Mar, Hypothyroidism, unspecified type E03.9 [facility] [address] [place] [id number] [place] [address] 74801- 7843 Mar, Schizoaffective disorder, depressive type F25.1 [facility] [id number] [place] [address] 55044 -6490 Feb, Gastroenteritis K52.9 and BMI 45.0-49.9, adult Z68.42 [facility] [address] [place] [id number] [place] [address] 38722- 8527 Feb, [place] [address] 67257- 0309 Feb, [place] [address] 69774- 5827 Feb, [place] [address] 45142- 5231 Feb, [place] [address] 47719- 2300 Feb, Paranoid schizophrenia F20.[address] 65552- 7058 Feb, Gastroesophageal reflux disease without esophagitis K21.9 ; Other seasonal allergic rhinitis J30.2 ; Other allergic rhinitis J30.89 ; Tobacco abuse Z72.0 and BMI 40.0-44.9, adult Z68.[address] 72371- 9955 Feb, Onychomycosis B35.1 ; Callus of foot L84 and DM neuro manif type II E11.[address] 48993- 5957 Jan, Chronic allergic rhinitis J30.[address] 24784- 6884 Jan, [place] [address] 74635- 6476 Jan, Schizoaffective disorder, depressive type F25.1 [place] [address] 11723- 8702 Jan, [facility] [address] 90975 -9394 Jan, Sore throat J02.9 and Seasonal allergic rhinitis due to other allergic trigger J30.89 [place] [address] [place] [address]- 6899 Jan, [facility] [address] [place] [id number] [place] [address] 00168- 6822 Jan, [facility] [address] [place] [id number] [place] [address] 58723 -5449 Jan, Chronic allergic rhinitis J30.9 [facility] [address] [place] [id number] [place] [address] 20767- 1679 Dec, Paranoid schizophrenia F20.0 ; Primary insomnia F51.01 and Schizoaffective disorder, depressive type F25.1 [facility] [address] 14405- 4849 Dec, Chronic pain syndrome G89.4 ; Cervicalgia of occipito- atlanto-axial region M54.2 ; Menopausal syndrome (hot flashes) N95.1 and Encounter for immunization Z23 [facility] [address] [place] [id number] [place] [address] 60528- 2342 14 Dec, 2016 [facility] [address] [place] [id number] [place] [address] 13373- 5205 Dec, [facility] [address] [place] [id number] [place] [address] 22789- 1087 Dec, Paranoid schizophrenia F20.0 [facility] [address] [place] [id number] [place] [address] 03839- 5650 Dec, Schizoaffective disorder, depressive type F25.1 [facility] [address] [place] [id number] [place] [address] 26623- 6558 Nov, Hypothyroidism, unspecified type E03.9 [facility] [address] [place] [id number] [place] [address] 99731 -6725 Nov, Acute seasonal allergic rhinitis due to other allergen J30.89 [facility] [address] [place] [id number] [place] [address] 65911- 1152 Nov, [facility] [address] [place] [address] [place] [address]- 6178 Nov, Hypothyroidism, unspecified type E03.9 and Other elevated white blood cell (WBC) count D72.828 [place] [address] [place] [id number] [place] [address] 23198- 2360 Nov, Schizoaffective disorder, depressive type F25.1 [place] [address] [place] [id number] [place] [address] 78887- 4017 Nov, Paranoid schizophrenia F20.0 [place] [address] [place] [id number] [place] [address] 66227- 2569 Nov, Type 2 diabetes mellitus without complication, without long- term current use of insulin E11.9 ; Morbid obesity due to excess calories E66.01 and Chronic pain syndrome G89.4 [place] [address] [place] [id number] [place] [address] 66640- 1604 Oct, Paranoid schizophrenia F20.0 [place] [address] [place] [id number] [place] [address] 27583- 1895 Oct, [place] [address] [place] [id number] [place] [address] 46374- 4369 Oct, Schizoaffective disorder, depressive type F25.1 [place] [address] [place] [id number] [place] [address] 91029- 1445 Oct, Hypothyroidism, unspecified type E03.9 and Other elevated white blood cell (WBC) count D72.828 [place] [address] [place] [id number] [place] [address] 41148- 5307 Oct, Morbid obesity due to excess calories E66.01 ; Chronic obstructive pulmonary disease, unspecified COPD type J44.9 ; History of lupus Z87.39 ; Hypothyroidism, unspecified type E03.9 ; Gastroesophageal reflux disease without esophagitis K21.9 ; Primary insomnia F51.01 and Chronic pain syndrome G89.4 [place] [id number] [place] [address] 67219- 6005 Sep, [facility] [address] [address]- 4198 Sep, [facility] [address] [place] [id number] [place] [address] 55775- 0757 Sep, [facility] [address] [place] [id number] [place] [address] 52340- 5196 Sep, Paranoid schizophrenia F20.0 [facility] [address] [place] [id number] [place] [address] 63916- 0805 Sep, [facility] [address] [place] [id number] [place] [address] 95913- 7299 Sep, Paranoid schizophrenia F20.0 [facility] [address] [place] [id number] [place] [address] 97370- 0260 Sep, [facility] [address] [place] [id number] [place] [address] 74471- 3596 August, Paranoid schizophrenia F20.0 [facility] [address] [place] [address] 20985- 7927 Jul, [facility] [address] [place] [id number] [place] [address] 57974- 7044 Jul, Type 2 diabetes mellitus without complication, [...] [facility] [address] [address] Jul, Dental examination Z01.20 [facility] [address] [place] [id number] [place] [address] 12623- 7400 07 Jul, 2016 Paranoid schizophrenia F20.0 [facility] [id number] [place] [address] 69380- 2658 Jun, Paranoid schizophrenia F20.0 and Depression with anxiety F41.8 [place] [address] [place] [id number] [place] [address] 62668- 4036 10 Jun, 2016 Paranoid schizophrenia F20.0 and Depression with anxiety F41.8 [place] [address] [place] [id number] [place] [address] 99431- 9879 09 Jun, [address] 61757- 9310 Jun, [facility] [place] [id number] [place] [address] 77395 -2785 Jun, Seasonal allergic rhinitis due to other allergic trigger J30.89 [facility] [place] [id number] [place] [address] 24686 -9653 May, Sore throat J02.9 ; Other viral agents as the cause of diseases classified elsewhere B97.89 and Acute upper respiratory infection, unspecified J06.9 [place] [address] [place] [id number] [place] [address] 31362- 7165 May, Paranoid schizophrenia F20.0 and Depression with anxiety F41.8 [place] [id number] [place] [address] 27172- 7745 Apr, Other seasonal allergic rhinitis J30.2 [place] [id number] [place] [address] 12587- 6507 Apr, Paranoid schizophrenia F20.0 and Depression with anxiety F41.8 [facility] [place] [id number] [place] [address] 22972 -1894 Apr, Bronchitis J40 and Sore throat J02.[address] 39202- 2301 Apr, Type 2 diabetes mellitus without complication, without long- term current use of insulin E11.9 [facility] [place] [id number] [place] [address] 34469 -3357 Apr, Bronchitis J40 [place] [id number] [place] [address] 04724- 4960 Apr, [place] [address] [place] [id number] [place] [address] 02487- 4621 Apr, [facility] [address] [place] [id number] [place] [address] 35431- 9925 Mar, Type 2 diabetes mellitus without complication, [...] R60.9 and Other seasonal allergic rhinitis J30.2 [place] [address] [place] [id number] [place] [address] 90647- 7720 Mar, Paranoid schizophrenia F20.0 and Depression with anxiety F41.8 [place] [address] [place] [id number] [place] [address] 18156- 9492 Feb, [place] [address] [place] [id number] [place] [address] 82719- 4328 Feb, [place] [address] [place] [id number] [place] [address] 28788- 5051 Feb, [place] [address] [place] [id number] [place] [address] 53440- 8924 Feb, [place] [address] [place] [id number] [place] [address] 77529- 3015 Feb, Type 2 diabetes mellitus without complication, without long- term current use of insulin E11.9 ; ARIAS on CPAP G47.33 and Preoperative evaluation to rule out surgical contraindication Z01.818 [facility] [id number] [place] [address] 78105- 2006 Feb, Paranoid schizophrenia F20.0 and Depression with anxiety F41.8 [facility] [address] [facility] [id number] [address]- 3945 Jan, [facility] [address] [place] [id number] [place] [address] 60685- 5334 Jan, Paranoid schizophrenia F20.0 and Depression with anxiety F41.8 [facility] [address] [place] [id number] [place] [address] 65512- 0495 17 Jan, 2016 [facility] [address] [place] [id number] [place] [address] 38095- 3154 14 Jan, 2016 Muscle strain T14.8 [facility] [address] [place] [id number] [place] [address] 85820- 6804 10 Jan, 2016 Paranoid schizophrenia F20.0 [facility] [address] [place] [id number] [place] [address] 73772- 2353 Jan, [facility] [address] [id number] [place] [address] 71172- 1922 Jan, Paranoid schizophrenia F20.0 and Depression with anxiety F41.8 [facility] [address] [id number] [place] [address] 95038- 0438 Jan, [facility] [address] [place] [address] [id number] [place] [address] 36738- 3615 Jan, [facility] [id number] [address]- 5236 28 Dec, 2015 [facility] [address] [place] [id number] [place] [address] 61250- 4888 23 Dec, 2015 Paranoid schizophrenia F20.0 [facility] [address] [id number] [address]- 5484 16 Dec, 2015 Paranoid schizophrenia F20.0 and Depression with anxiety F41.8 [facility] [id number] [address] 31 Nov, 2015 [facility] [id number] [place] [address] [phone]- 0348 Nov, Paranoid schizophrenia F20.0 [id number] [place] [address] 67[address]- 1390 Nov, Paranoid schizophrenia F20.0 and Depression with anxiety F41.8 [place] [id number] [place] [address] 96184- 1256 Nov, Type 2 diabetes mellitus without complication, without long- term current use of insulin E11.9 ; Paranoid schizophrenia F20.0 ; Chronic obstructive pulmonary disease, unspecified COPD type J44.9 ; Morbid obesity due to excess calories E66.01 and Parkinsonian tremor G20 [address] [id number] [place] [address] 98675- 2789 Nov, [address] [id number] [place] [address] [id number]- 8133 Oct, Paranoid schizophrenia F20.0 [place] [id number] [place] [address] 95711- 8265 Oct, Paranoid schizophrenia F20.0 [place] [id number] [place] [address] 09895- 9182 Oct, Paranoid schizophrenia F20.0 and Depression with anxiety F41.8 [place] [id number] [place] [address] 41257- 2274 Oct, [place] [id number] [place] [address] 13489- 9966 Oct, Paranoid schizophrenia F20.0 and Depression with anxiety F41.8 [place] [id number] [place] [address] 73138- 8136 Oct, Nasal sore J34.89 [place] [id number] [place] [address] 05838- 9228 Oct, Type 2 diabetes mellitus without complication, without long- term current use of insulin E11.9 ; Depression with anxiety F41.8 ; Hypothyroidism, unspecified type E03.9 and History of lupus Z87.39 [facility] [id number] [address] [address] Oct, [facility] [id number] [place] [address]- 7292 Oct, Type 2 diabetes mellitus without complication, [...] edema R60.9 and History of lupus Z87.39 [facility] [id number] [address] 2[address] Feb, [facility] [id number] [place] [address] [id number]- 2572 Jan, [facility] [id number] [place] [address]- 0107 Jan, [facility] [id number] [id number] [address] Jan, [facility] [id number] [address] Dec, [facility] [id number] [place] [address]- 0980 Nov, [facility] [id number] [address] 7651 Nov, [facility] [id number] [place] [address]- 2599 Oct, [facility] [id number] [address] Oct, [facility] [id number] [place] [address] 3071 17 Oct, 2014 [facility] [address] [facility] [id number] [place] [address] 5968 Sep, Allergic rhinitis 477.9 [facility] [address] [facility] [id number] [place] [address]- 1033 11 Sep, 2014 Rhinitis, allergic 477.9 [facility] [address] [facility] [id number] [place] [address] 5232 Sep, Rhinitis, allergic 477.9 [facility] [address] [facility] [id number] [place] [address]- 3892 Sep, [facility] [address] [facility] [id number] [place] [address]- 3778 August, [facility] [address] [id number] [place] [address] 5124 August, [facility] [address] [facility] [id number] [place] [address]- 2083 August, [facility] [address] [id number] [place] [address]- 3929 Jul, [facility] [address] [id number] [place] [address]- 0232 Jul, [facility] [address] [id number] [place] [address]- 2506 Jul, [facility] [place] [facility] [address] [facility] [id number] [place] [address]- 6568 16 Jun, 2014 [facility] [place] [facility] [address] [facility] [id number] [place] [address]- 7152 16 Jun, 2014 [facility] [place] [facility] [address] [facility] [id number] [place] [address]- 7579 Jun, [facility] [place] [facility] [address] [id number] [place] [address]- 7409 Jun, [facility] [place] [facility] [address] [facility] [id number] [place] [address]- 2155 11 Jun, 2014 [facility] [place] [facility] [address] [id number] [place] [address]- 0094 Jun, 2014 [facility] [place] [facility] [address] [id number] [place] [address]- 1456 Jun, 2014 [facility] [place] [facility] [address] [id number] [place] [address]- 4386 Jun, 2014 [facility] [place] [facility] [address] [id number] [place] [address]- 6540 May, 2014 [facility] [place] [facility] [address] [id number] [place] [address]- 0076 May, 2014 [facility] [place] [facility] [address] [facility] [id number] [place] [address]- 3687 May, 2014 [facility] [place] [facility] [address] [id number] [place] [address]- 7851 May, 2014 [facility] [place] [facility] [address] [id number] [place] [address]- 2589 Apr, [facility] [place] [facility] [address] [id number] [place] [address]- 0731 Mar, [facility] [place] [facility] [address] [facility] [id number] [place] [address]- 4222 Mar, [facility] [place] [facility] [address] [id number] [place] [address]- 2485 Mar, [facility] [place] [facility] [address] [id number] [place] [address]- 7716 Mar, [facility] [place] [facility] [address] [id number] [place] [address]- 2766 Mar, [facility] [place] [facility] [address] [id number] [place] [address]- 0566 Mar, [facility] [place] [facility] [address] [id number] [place] [address]- 9580 Mar, [facility] [place] [facility] [address] [id number] [place] [address]- 2556 Mar, [facility] [place] [facility] [address] [id number] [place] [address]- 6673 Mar, [facility] [place] [facility] [address] [id number] [place] [address]- 9405 Feb, [facility] [place] [facility] [address] [id number] [place] [address]- 9476 Feb, [facility] [place] [facility] [address] [id number] [place] [address]- 5723 Feb, [facility] [place] [facility] [address] [id number] [place] [address]- 7160 Feb, [facility] [place] [facility] [address] [id number] [place] [address]- 9694 Feb, [facility] [place] [facility] [address] [id number] [place] [address]- 4943 Feb, [facility] [place] [facility] [address] [id number] [place] [address]- 9154 Feb, [facility] [place] [facility] [address] [id number] [place] [address]- 7027 Feb, [facility] [place] [facility] [address] [id number] [address]- 9384 Jan, [facility] [place] [facility] [address] [id number] [address]- 5435 Jan, [facility] [place] [facility] [address] [id number] [place] [address]- 9071 16 Jan, 2014 [facility] [place] [facility] [address] [id number] [place] [address]- 9800 16 Jan, 2014 [facility] [place] [facility] [address] [id number] [place] [address]- 8025 15 Jan, 2014 [facility] [place] [facility] [address] [id number] [place] [address]- 1691 15 Jan, 2014 [facility] [place] [facility] [address] [id number] [place] [address]- 0172 14 Jan, 2014 [facility] [place] [facility] [address] [id number] [place] [address]- 1656 14 Jan, 2014 [facility] [place] [facility] [address] [id number] [place] [address]- 9371 14 Jan, 2014 [facility] [place] [facility] [address] [id number] [place] [address]- 4576 14 Jan, 2014 [facility] [place] [facility] [address] [id number] [place] [address]- 7538 18 Dec, 2013 [facility] [place] [facility] [address] [id number] [place] [address]- 4142 18 Dec, 2013 [facility] [place] [facility] [address] [id number] [place] [address]- 9886 10 Dec, 2013 [facility] [place] [facility] [address] [id number] [place] [address]- 9021 10 Dec, 2013 [facility] [place] [facility] [address] [id number] [place] [address]- 8184 Nov, [facility] [place] [facility] [address] [id number] [place] [address]- 9419 Nov, [facility] [place] [facility] [address] [id number] [place] [address]- 0638 Nov, [facility] [place] [facility] [address] [id number] [place] [address]- 5789 Nov, [facility] [place] [facility] [address] [id number] [place] [address]- 5440 Nov, [facility] [place] [facility] [address] [id number] [place] [address]- 7693 Oct, [facility] [place] [facility] [address] [id number] [place] [address]- 3152 Oct, [facility] [place] [facility] [address] [id number] [place] [address]- 3531 Oct, [facility] [place] [facility] [address] [id number] [place] [address]- 2686 Oct, [facility] [place] [facility] [address] [id number] [place] [address]- 4096 Sep, [facility] [place] [facility] [address] [id number] [place] [address]- 8517 Sep, [facility] [place] [facility] [address] [id number] [place] [address]- 4535 Sep, [facility] [place] [facility] [address] [id number] [place] [address]- 7060 Sep, [facility] [place] [facility] [address] [id number] [place] [address]- 7640 Sep, [facility] [place] [facility] [address] [id number] [place] [address]- 1256 Sep, [facility] [place] [facility] [address] [id number] [place] [address]- 8670 Sep, [facility] [place] [facility] [address] [id number] [place] [address]- 2464 Sep, [facility] [place] [facility] [address] [id number] [place] [address]- 3648 August, [facility] [place] [facility] [address] [id number] [place] [address]- 0514 August, [facility] [place] [facility] [address] [id number] [place] [address]- 8697 August, [facility] [place] [facility] [address] [id number] [place] [address]- 0738 August, [facility] [place] [facility] [address] [id number] [place] [address]- 3490 August, [facility] [place] [facility] [address] [id number] [place] [address]- 9672 August, [facility] [place] [facility] [address] [id number] [place] [address]- 5979 August, [facility] [place] [facility] [address] [id number] [place] [address]- 2375 Jul, [facility] [place] [facility] [address] [id number] [place] [address]- 0478 Jul, [facility] [place] [facility] [address] [id number] [place] [address]- 3394 Jul, [facility] [place] [facility] [address] [id number] [place] [address]- 6305 Jul, [facility] [place] [facility] [address] [id number] [place] [address]- 4908 Jul, [facility] [place] [facility] [address] [id number] [place] [address]- 9059 Jul, [facility] [place] [facility] [address] [id number] [place] [address]- 1862 Jul, [facility] [place] [facility] [address] [id number] [place] [address]- 6013 Jul, [facility] [place] [facility] [address] [id number] [place] [address]- 4854 Jul, [facility] [place] [facility] [address] [id number] [place] [address]- 1512 Jul, [facility] [place] [facility] [address] [id number] [place] [address]- 3780 Jul, [facility] [place] [facility] [address] [id number] [place] [address]28 Jul, [facility] [place] [facility] [address] [id number] [place] [address]- 4418 Jun, [facility] [place] [facility] [address] [id number] [place] 1768 Jun, [facility] [place] [facility] [address] [id number] [place] [address]- 7329 Jun, [facility] [place] [facility] [address] [id number] [place] [address]- 6565 Jun, [facility] [place] [facility] [address] [id number] [place] [address]- 2378 Jun, [facility] [place] [facility] [address] [id number] [place] [address]- 2164 May, [facility] [place] [facility] [address] [id number] [place] [address]- 0422 May, [facility] [place] [facility] [address] [id number] [place] [address]- 6259 May, [facility] [place] [facility] [address] [id number] [place] [address]- 5705 May, [facility] [place] [facility] [address] [id number] [place] [address]- 8367 May, [facility] [place] [facility] [address] [id number] [place] [address]- 0759 May, [facility] [place] [facility] [address] [facility] [id number] [place] [address]- 2219 May, [facility] [place] [facility] [address] [facility] [id number] [place] [address]- 9813 May, [facility] [place] [facility] [address] [id number] [place] [address]- 8983 Mar, [facility] [place] [facility] [address] [id number] [place] [address]- 3923 Mar, [facility] [place] [facility] [address] [id number] [place] [address]- 6344 Mar, [facility] [place] [facility] [address] [id number] [place] [address]- 5113 Mar, [facility] [place] [facility] [address] [facility] [id number] [address]- 4926 Mar, [facility] [place] [facility] [address] [id number] [place] [address]- 7897 Mar, [facility] [place] [facility] [address] [id number] [place] [address]- 4506 Feb, [facility] [place] [facility] [address] [id number] [place] [address]- 0684 Feb, [facility] [place] [facility] [address] [id number] [address]- 4501 Jan, [facility] [place] [facility] [address] [id number] [place] 6084 Jan, [facility] [place] [facility] [address] [id number] [address]- 5584 Jan, [facility] [place] [facility] [address] [id number] [place] [address]- 5225 Jan, [facility] [place] [facility] [address] [id number] [place] [address]- 4747 Jan, [facility] [place] [facility] [address] [id number] [address]- 7758 Jan, [facility] [place] [facility] [address] [id number] [address]- 5035 Jan, [facility] [place] [facility] [address] [id number] [place] [address]- 4969 Jan, [facility] [place] [facility] [address] [id number] [address]- 3569 08 Jan, 2013 [facility] [place] [facility] [address] [id number] [address]- 2094 Jan, [facility] [place] [facility] [address] [id number] [place] [address]- 3989 16 Dec, 2012 [facility] [place] [facility] [address] [id number] [address]- 4468 Nov, [facility] [place] [facility] [address] [facility] [id number] [address] 2546 Nov, [facility] [address] [facility] [id number] [address]- 1386 Nov, [facility] [address] [facility] [id number] [place] [address]- 7276 Oct, [facility] [id number] [address]- 0756 Oct, [facility] [address] [facility] [id number] [place] [address]- 1034 August, [facility] [address] [facility] [id number] [place] [address]- 0840 Apr, [facility] [address] [facility] [id number] [place] [address]- 4689 Apr, [facility] [id number] [address]- 8465 Feb, [facility] [address] [id number] [address]- 5657 Feb, [facility] [id number] 4740 Dec, [facility] [id number] [address]- 4125 Dec, [facility] [address] [id number] [id number] 2643 Oct, [facility] [address] [id number] [address]- 0514 Oct, [facility] [id number] [address]- 8252 Oct, [facility] [address] [id number] [address]- 8250 Jul, IMMUNIZATIONS No Known Immunizations SOCIAL HISTORY Never Assessed REASON FOR VISIT Lab results PLAN OF CARE VITAL SIGNS MEDICATIONS Medication [...] psychosis/mental illness , last one in [facility] 4 years ago
--- NOTE | 2018-09-02 14:25 | Diagnostic Imaging Report ---
INDICATION: Fall. TIME OF EXAM: 1:49 PM COMPARISON: Comparison is made with prior chest from 05/12/2016. FINDINGS: The heart is enlarged. Lungs appear to be clear. No infiltrate or failure is seen. No effusion or pneumothorax is detected. IMPRESSION: Cardiomegaly. No acute cardiopulmonary processes detected. Dictated by: Dictated on workstation # [id number]
--- OUTSIDE RECORDS SUMMARY | 2018-09-02 14:25 | XMS REPORT ---
Author Author SOTO STRICKLAND Organization [facility] Address [address] [place] [address] Care Team Providers Care Design Drafter Chief Name Role Phone SOTO STRICKLAND Unavailable PROBLEMS Type Condition ICD9-CM Code [id number] Code Onset Dates Condition Status SNOMED Code Problem OAB (overactive bladder) N32.81 Active 065233421 Problem Depression with anxiety F41.8 Active 819396348 Problem Other seasonal allergic rhinitis J30.2 Active 304658002 Problem Chronic obstructive pulmonary disease, unspecified COPD type J44.9 Active 43201686 Problem Tobacco abuse Z72.0 Active 927389643 Problem Morbid obesity due to excess calories E66.01 Active 059053214 Problem Dyslipidemia E78.5 Active 688180256 Problem Hypothyroidism (acquired) E03.9 Active 378800300 Problem Essential hypertension I10 Active 07435285 Problem Diabetic polyneuropathy associated with type 2 diabetes mellitus E11.42 Active 633375646 Problem Type 2 diabetes mellitus with diabetic neuropathic arthropathy, 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 Active 040645320 Problem Type 2 diabetes mellitus without complication, without long-term current use of insulin E11.9 Active 304870570 Problem Paranoid schizophrenia F20.0 Active 32575208 Problem Chronic pain syndrome G89.4 Active 438675538 Problem Migraine without aura and without status migrainosus, not intractable G43.009 Active 274566772 Problem Gastroesophageal reflux disease, esophagitis presence not specified K21.9 Active 437949684 Problem Seasonal allergic rhinitis due to pollen J30.1 Active 50538647 Problem COPD exacerbation J44.1 Active 268094981 Problem Seasonal allergic rhinitis due to other allergic trigger J30.89 Active 660529135 Problem Schizoaffective disorder, depressive type F25.1 Active 63207698 Problem History of lupus Z87.39 Active 115116465 Problem Gastroesophageal reflux disease without esophagitis K21.9 Active 583340805 Problem Menopausal syndrome (hot flashes) N95.1 Active 843654753 Problem Other allergic rhinitis J30.89 Active 320670440 Problem Primary insomnia F51.01 Active 5202126 Problem DM neuro manif type II E11.49 Active 30386157 ALLERGIES No Information ENCOUNTERS Encounter Location Date Diagnosis [place] [address], [place] [address] Dec, [place] [address] [place] [id number] [place] [address] 40707- 3577 Nov, [place] [address] [id number] [place] [address] 26158- 3653 Nov, [place] [address] [place] [id number] [place] [address] 54389- 0506 Oct, Paranoid schizophrenia F20.0 [place] [id number] [address] Oct Chronic pain syndrome G89.4 and Schizoaffective disorder, depressive type F25.1 [place] [id number] [place] [address] 44377- 3429 Oct, Chronic pain syndrome G89.4 and Schizoaffective disorder, depressive type F25.1 [place] [id number] [place] [address] 28178- 5497 Oct, Type 2 diabetes mellitus without complication, without long- term current use of insulin E11.9 [place] [id number] [place] [address] 39751- 6839 Oct, Essential hypertension I10 and DM neuro manif type II E11.49 [place] [id number] [place] [address] 45334- 4532 Oct, [place] [address] [place] [id number] [place] [address] 92507- 5119 Oct, Schizoaffective disorder, depressive type F25.1 and BMI 45.0 -49.9, adult Z68.42 [place] [address] [place] [id number] [place] [address] 15854- 6497 Oct, [facility] [address] [address] [id number] [place] [address] 25912- 3162 Oct, Paranoid schizophrenia F20.0 [facility] [address] [id number] [place] [address] 26581- 7670 Oct, Type 2 diabetes mellitus with diabetic neuropathic arthropathy, 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 ; Essential hypertension I10 ; Hypothyroidism (acquired) E03.9 ; Chronic obstructive pulmonary disease, unspecified COPD type J44.9 and Diabetic polyneuropathy associated with type 2 diabetes mellitus E11.42 [facility] [address] [id number] [place] [address] 17273- 0262 Sep, Paranoid schizophrenia F20.0 [facility] [address] [place] [id number] [place] [address] 18849- 3521 Sep, Paranoid schizophrenia F20.0 and BMI 45.0-49.9, adult Z68.42 [facility] [address] [id number] [place] [address] 62252- 1132 Sep, Schizoaffective disorder, depressive type F25.1 [facility] [address] [place] [id number] [place] [address] 84547- 1706 Sep, [facility] [id number] [place] [address] 20608- 4628 Sep, Paranoid schizophrenia F20.0 [facility] [id number] [place] [address] 17488- 6912 Sep, [facility] [id number] [place] [address] 91935- 3805 Sep, Hypothyroidism (acquired) E03.9 [facility] [id number] [place] [address] 93218- 9926 Sep, [facility] [id number] [place] [address] 66250- 8164 August, Schizoaffective disorder, depressive type F25.1 [facility] [address] [place] [id number] [place] [address] 28455- 2375 August, [facility] [address] 11337- 4956 August, [facility] [address] [id number] [place] [address] 99022- 1410 August, [place] [address] 82535- 2636 August, Paranoid schizophrenia F20.0 [place] [address] [place] [id number] [place] [address] 54514- 8789 August, History of lupus Z87.39 and Chronic pain syndrome G89.4 [place] [address] [place] [id number] [place] [address] 68213- 1785 August, [facility] [address] 62685 -8748 August, Seasonal allergic rhinitis, unspecified trigger J30.2 and BMI 45.0-49.9, adult Z68.42 [place] [address] [place] [id number] [place] [address] 16603- 4558 Jul, Schizoaffective disorder, depressive type F25.1 [place] [address] [place] [id number] [place] [address] 16219- 9633 Jul, [place] [address] [id number] [place] [address] 57516- 0389 Jul, Hypothyroidism (acquired) E03.9 [place] [address] [place] [id number] [place] [address] 08077- 2820 Jul, Chronic obstructive pulmonary disease, unspecified COPD type J44.9 and Type 2 diabetes mellitus without complication, without long-term current use of insulin E11.9 [place] [address] [place] [id number] [place] [address] 96808- 0963 Jul, Paranoid schizophrenia F20.0 [place] [address] [place] [id number] [place] [address] 69046- 1800 Jun, Hypothyroidism (acquired) E03.9 and Seasonal allergic rhinitis due to pollen J30.1 [facility] [address] [place] [id number] [place] [address] 86653 -7962 Jun, Shortness of breath at rest R06.02 ; COPD exacerbation J44.1 and BMI 45.0-49.9, adult Z68.42 [facility] [address] 57688- 1968 Jun, [facility] [address] 36802- 9474 Jun, Paranoid schizophrenia F20.0 ; Depression with anxiety F41.8 and BMI 45.0-49.9, adult Z68.42 [facility] [address] 52957- 8867 20 Jun, 2017 Schizoaffective disorder, depressive type F25.1 [facility] [address] [id number] Jun, Dental caries K02.9 [place] [address] 71982- 6348 Jun, Paranoid schizophrenia F20.0 [facility] [address] [place] [id number] [place] [address] 03897- 1761 May, Migraine without aura and without status migrainosus, not intractable G43.009 ; DM neuro manif type II E11.49 and Type 2 diabetes mellitus without complication, without long-term current use of insulin E11.9 [facility] [address] 68814- 9339 May, Migraine without aura and without status migrainosus, not intractable G43.009 [facility] [address] [place] [id number] [place] [address] 80755- 1907 May, Depression with anxiety F41.8 [facility] [address] [place] [id number] [place] [address] [id number] May, [facility] [address] [address] [id number] [place] [address] 33731- 9330 May, [facility] [id number] [place] [address] 06628- 4876 May, [facility] [address] [place] [id number] [place] [address] 58077- 9117 May, Hypothyroidism (acquired) E03.9 [place] [address] [place] [id number] [place] [address] 05653- 4226 May, Paranoid schizophrenia F20.0 [place] [address] 28515- 1430 May, Type 2 diabetes mellitus without complication, [...] N32.81 and Controlled substance agreement signed Z79.899 [place] [address] [place] [id number] [place] [address] 57138- 4053 May, Controlled substance agreement signed Z79.899 [place] [address] [place] [id number] [place] [address] 67986- 3564 Apr, [facility] [address] [place] [id number] [place] [address] [id number] Apr, Dental examination Z01.20 [place] [address] [place] [id number] [place] [address] 61233- 3625 Apr, Paranoid schizophrenia F20.0 [facility] [id number] [place] [address] 31313- 9592 Apr, Hypertension, unspecified type I10 [facility] [address] [place] [id number] [place] [address] 16728- 3794 Apr, Paranoid schizophrenia F20.0 [facility] [address] [place] [id number] [place] [address] 21433- 2423 Apr, [facility] [address] [address] [id number] [place] [address] 62879- 6730 Apr, Tobacco abuse Z72.0 [facility] [address] 07197- 5397 Apr, [facility] [address] [place] [id number] [place] [address] 96056- 4219 Mar, [facility] [address] [place] [address] [id number] [place] [address] 69753- 5922 Mar, Paranoid schizophrenia F20.0 and BMI 45.0-49.9, adult Z68.42 [facility] [address] [place] [id number] [place] [address] 41038- 5959 Mar, Schizoaffective disorder, depressive type F25.1 [facility] [address] [place] [id number] [place] [address] 68008- 6323 Mar, [facility] [address] [address] [id number] [place] [address] 26986- 5002 Mar, Hypothyroidism, unspecified type E03.9 [facility] [address] [id number] [place] [address] 51915- 4509 Mar, Schizoaffective disorder, depressive type F25.1 [facility] [id number] [place] [address] 39813 -3493 Feb, Gastroenteritis K52.9 and BMI 45.0-49.9, adult Z68.42 [facility] [address] [place] [id number] [place] [address] 55727- 2880 Feb, [place] [address] 41624- 7037 Feb, [place] [address] 37098- 2145 Feb, [place] [address] 71949- 6345 Feb, [place] [address] 70109- 1460 Feb, Paranoid schizophrenia F20.[address] 39822- 0721 Feb, Gastroesophageal reflux disease without esophagitis K21.9 ; Other seasonal allergic rhinitis J30.2 ; Other allergic rhinitis J30.89 ; Tobacco abuse Z72.0 and BMI 40.0-44.9, adult Z68.[address] 29727- 1557 Feb, Onychomycosis B35.1 ; Callus of foot L84 and DM neuro manif type II E11.[address] 57075- 2092 Jan, Chronic allergic rhinitis J30.[address] 00396- 3763 Jan, [place] [address] 62420- 7514 Jan, Schizoaffective disorder, depressive type F25.1 [place] [address] 49045- 9319 Jan, [facility] [address] 44354 -4828 Jan, Sore throat J02.9 and Seasonal allergic rhinitis due to other allergic trigger J30.89 [place] [address] [place] [address]- 3283 Jan, [facility] [address] [place] [id number] [place] [address] 50541- 2396 Jan, [facility] [address] [place] [id number] [place] [address] 30475 -3906 Jan, Chronic allergic rhinitis J30.9 [facility] [address] [place] [id number] [place] [address] 23408- 3577 Dec, Paranoid schizophrenia F20.0 ; Primary insomnia F51.01 and Schizoaffective disorder, depressive type F25.1 [facility] [address] 37522- 9227 Dec, Chronic pain syndrome G89.4 ; Cervicalgia of occipito- atlanto-axial region M54.2 ; Menopausal syndrome (hot flashes) N95.1 and Encounter for immunization Z23 [facility] [address] [place] [id number] [place] [address] 77410- 0204 14 Dec, 2016 [facility] [address] [place] [id number] [place] [address] 67947- 8767 Dec, [facility] [address] [place] [id number] [place] [address] 71939- 6090 Dec, Paranoid schizophrenia F20.0 [facility] [address] [place] [id number] [place] [address] 78281- 2519 Dec, Schizoaffective disorder, depressive type F25.1 [facility] [address] [place] [id number] [place] [address] 03097- 1795 Nov, Hypothyroidism, unspecified type E03.9 [facility] [address] [place] [id number] [place] [address] 57653 -1095 Nov, Acute seasonal allergic rhinitis due to other allergen J30.89 [facility] [address] [place] [id number] [place] [address] 24273- 9892 Nov, [facility] [address] [place] [address] [address]- 4696 Nov, Hypothyroidism, unspecified type E03.9 and Other elevated white blood cell (WBC) count D72.828 [place] [address] [place] [id number] [place] [address] 47162- 0589 Nov, Schizoaffective disorder, depressive type F25.1 [place] [address] [place] [id number] [place] [address] 37377- 0685 Nov, Paranoid schizophrenia F20.0 [place] [address] [place] [id number] [place] [address] 32517- 5843 Nov, Type 2 diabetes mellitus without complication, without long- term current use of insulin E11.9 ; Morbid obesity due to excess calories E66.01 and Chronic pain syndrome G89.4 [place] [address] [place] [id number] [place] [address] 98906- 7139 Oct, Paranoid schizophrenia F20.0 [place] [address] [place] [id number] [place] [address] 06831- 6538 Oct, [place] [address] [place] [id number] [place] [address] 69399- 5157 Oct, Schizoaffective disorder, depressive type F25.1 [place] [address] [place] [id number] [place] [address] 80223- 6613 Oct, Hypothyroidism, unspecified type E03.9 and Other elevated white blood cell (WBC) count D72.828 [place] [address] [place] [id number] [place] [address] 11724- 6519 Oct, Morbid obesity due to excess calories E66.01 ; Chronic obstructive pulmonary disease, unspecified COPD type J44.9 ; History of lupus Z87.39 ; Hypothyroidism, unspecified type E03.9 ; Gastroesophageal reflux disease without esophagitis K21.9 ; Primary insomnia F51.01 and Chronic pain syndrome G89.4 [place] [id number] [place] [address] 10516- 0524 Sep, [facility] [address], [place] [address]- 1376 Sep, [facility] [address] [id number] [place] [address] 68926- 5713 Sep, [facility] [address] [id number] [place] [address] 77076- 2366 Sep, Paranoid schizophrenia F20.0 [facility] [address] [place] [id number] [place] [address] 66931- 9910 Sep, [facility] [address] [id number] [place] [address] 60626- 7508 Sep, Paranoid schizophrenia F20.0 [facility] [address] [id number] [place] [address] 33970- 0608 Sep, [facility] [address] [place] [id number] [place] [address] 21406- 7133 August, Paranoid schizophrenia F20.0 [facility] [id number] [place] [address] 88679- 7215 Jul, [facility] [address] [id number] [place] [address] 39390- 8974 Jul, Type 2 diabetes mellitus without complication, without long- term current use of insulin E11.9 ; Morbid obesity due to excess calories E66.01 ; Depression with anxiety F41.8 ; Hypothyroidism, unspecified type E03.9 ; Seasonal allergic rhinitis due to other allergic trigger J30.89 ; Pain, dental K08.89 and Gastroesophageal reflux disease without esophagitis K21.9 [facility] [address] [id number] Jul, Dental examination Z01.20 [facility] [address] [id number] [place] [address] 26337- 4179 07 Jul, 2016 Paranoid schizophrenia F20.0 [facility] [id number] [place] [address] 28489- 7488 Jun, Paranoid schizophrenia F20.0 and Depression with anxiety F41.8 [place] [address] [place] [id number] [place] [address] 26299- 2585 10 Jun, 2016 Paranoid schizophrenia F20.0 and Depression with anxiety F41.8 [place] [address] [place] [id number] [place] [address] 75906- 4106 09 Jun, [address] 34867- 0010 Jun, [facility] [place] [id number] [place] [address] 35208 -5246 Jun, Seasonal allergic rhinitis due to other allergic trigger J30.89 [facility] [place] [id number] [place] [address] 14273 -8705 May, Sore throat J02.9 ; Other viral agents as the cause of diseases classified elsewhere B97.89 and Acute upper respiratory infection, unspecified J06.9 [place] [address] [place] [id number] [place] [address] 92824- 3709 May, Paranoid schizophrenia F20.0 and Depression with anxiety F41.8 [place] [id number] [place] [address] 77791- 7652 Apr, Other seasonal allergic rhinitis J30.2 [place] [id number] [place] [address] 72220- 3811 Apr, Paranoid schizophrenia F20.0 and Depression with anxiety F41.8 [facility] [place] [id number] [place] [address] 13427 -3763 Apr, Bronchitis J40 and Sore throat J02.[address] 31015- 3772 Apr, Type 2 diabetes mellitus without complication, without long- term current use of insulin E11.9 [facility] [place] [id number] [place] [address] 85826 -7131 Apr, Bronchitis J40 [place] [id number] [place] [address] 13745- 2013 Apr, [place] [address] [place] [id number] [place] [address] 93330- 9749 Apr, [facility] [id number] [place] [address] 18007- 0312 Mar, Type 2 diabetes mellitus without complication, [...] R60.9 and Other seasonal allergic rhinitis J30.2 [place] [address] [place] [id number] [place] [address] 65230- 7968 Mar, Paranoid schizophrenia F20.0 and Depression with anxiety F41.8 [place] [address] [id number] [place] [address] 49808- 4348 Feb, [place] [address] [id number] [place] [address] 98084- 9926 Feb, [place] [address] [id number] [place] [address] 08594- 3929 Feb, [place] [address] [id number] [place] [address] 87651- 8761 Feb, [place] [address] [id number] [place] [address] 98655- 0309 Feb, Type 2 diabetes mellitus without complication, without long- term current use of insulin E11.9 ; ARIAS on CPAP G47.33 and Preoperative evaluation to rule out surgical contraindication Z01.818 [facility] [id number] [place] [address] 55402- 4728 Feb, Paranoid schizophrenia F20.0 and Depression with anxiety F41.8 [facility] [address] [facility] [id number] [address]- 6729 Jan, [facility] [address] [id number] [place] [address] 09239- 0188 Jan, Paranoid schizophrenia F20.0 and Depression with anxiety F41.8 [facility] [id number] [place] [address] 69833- 4017 17 Jan, 2016 [facility] [id number] [place] [address] 20773- 2958 14 Jan, 2016 Muscle strain T14.8 [facility] [id number] [place] [address] 43583- 9348 10 Jan, 2016 Paranoid schizophrenia F20.0 [facility] [id number] [place] [address] 71161- 8501 Jan, [facility] [id number] [place] [address] 20633- 4091 Jan, Paranoid schizophrenia F20.0 and Depression with anxiety F41.8 [facility] [id number] [place] [address] 89717- 3197 Jan, [facility] [id number] [place] [address] 05813- 3519 Jan, [facility] [id number], [place] [address]- 9788 28 Dec, 2015 [facility] [id number] [place] [address] 47771- 1945 23 Dec, 2015 Paranoid schizophrenia F20.0 [facility] [id number] [address]- 3131 16 Dec, 2015 Paranoid schizophrenia F20.0 and Depression with anxiety F41.8 [facility] [id number] [address]- 7805 31 Nov, 2015 [facility] [id number] [place] [address] 34509- 3257 Nov, Paranoid schizophrenia F20.0 [place] [address] [id number] [place] [address] 55633- 8262 Nov, Paranoid schizophrenia F20.0 and Depression with anxiety F41.8 [place] [address] [place] [id number] [place] [address] 91438- 1683 Nov, Type 2 diabetes mellitus without complication, without long- term current use of insulin E11.9 ; Paranoid schizophrenia F20.0 ; Chronic obstructive pulmonary disease, unspecified COPD type J44.9 ; Morbid obesity due to excess calories E66.01 and Parkinsonian tremor G20 [place] [id number] [place] [address] [phone] Nov, [place] [id number] [place] [address] [phone] Oct, Paranoid schizophrenia F20.0 [place] [id number] [place] [address] [phone] Oct, Paranoid schizophrenia F20.0 [place] [id number] [place] [address] [phone] Oct, Paranoid schizophrenia F20.0 and Depression with anxiety F41.8 [place] [id number] [place] [address] [phone] Oct, [place] [id number] [place] [address] [phone] Oct, Paranoid schizophrenia F20.0 and Depression with anxiety F41.8 [place] [id number] [place] [place] [address]- 0094 Oct, Nasal sore J34.89 [place] [id number] [place] [address] 26301- 4715 Oct, Type 2 diabetes mellitus without complication, without long- term current use of insulin E11.9 ; Depression with anxiety F41.8 ; Hypothyroidism, unspecified type E03.9 and History of lupus Z87.39 [facility] [address] [address] [address] Oct, [facility] [id number] [place] [address] 01143- 4145 Oct, Type 2 diabetes mellitus without complication, [...] and History of lupus Z87.39 [facility] [address], [place] [address] 4218 Feb, [facility] [id number] [place] [address] [id number]- 1867 Jan, [facility] [id number] [place] [address] 93580- 7707 Jan, [facility] [id number] [id number]- 1071 Jan, [facility] [address] [address] Dec, [facility] [id number] [place] [address] 76190- 4109 Nov, [facility] [id number], [place] [address] 5363 Nov, [facility] [id number] [place] [address] 47234- 4137 Oct, [facility] [address], [place] [address]- 7049 Oct, [facility] [id number] [place] [address] 3490 17 Oct, 2014 [facility] [address] [id number] [place] [address] 7441 Sep, Allergic rhinitis 477.9 [facility] [address] [id number] [place] [address]- 2463 11 Sep, 2014 Rhinitis, allergic 477.9 [facility] [address] [id number] [place] [address]- 3536 Sep, Rhinitis, allergic 477.9 [facility] [address] [id number] [place] [address]- 0187 Sep, [facility] [address] [id number] [place] [address]- 8365 August, [facility] [address] [id number] [place] [address]- 7341 August, [facility] [address] [id number] [place] [address]- 7442 August, [facility] [address] [id number] [place] [address]- 3111 Jul, [facility] [address] [id number] [place] [address]- 9412 Jul, [facility] [address] [id number] [place] [address]- 4953 Jul, [facility] [place] [facility] [address] [id number] [place] [address]- 2295 16 Jun, 2014 [facility] [place] [facility] [address] [id number] [place] [address]- 0732 16 Jun, 2014 [facility] [place] [facility] [address] [id number] [place] [address]- 2121 Jun, [facility] [place] [facility] [address] [id number] [place] [address]- 8901 Jun, [facility] [place] [facility] [address] [id number] [place] [address]- 7147 11 Jun, 2014 [facility] [place] [facility] [address] [id number] [place] [address]- 5022 Jun, 2014 [facility] [place] [facility] [address] [id number] [place] [address]- 9366 Jun, 2014 [facility] [place] [facility] [address] [id number] [place] [address]- 2850 Jun, 2014 [facility] [place] [facility] [address] [id number] [place] [address]- 8446 May, 2014 [facility] [place] [facility] [address] [id number] [place] [address]- 6786 May, 2014 [facility] [place] [facility] [address] [id number] [place] [address]- 6499 May, 2014 [facility] [place] [facility] [address] [id number] [place] [address]- 5495 May, 2014 [facility] [place] [facility] [address] [id number] [place] [address]- 1068 Apr, [facility] [place] [facility] [address] [id number] [place] [address]- 9047 Mar, [facility] [place] [facility] [address] [id number] [place] [address]- 0642 Mar, [facility] [place] [facility] [address] [id number] [place] [address]- 1475 Mar, [facility] [place] [facility] [address] [id number] [place] [address]- 0056 Mar, [facility] [place] [facility] [address] [id number] [place] [address]- 5176 Mar, [facility] [place] [facility] [address] [id number] [place] [address]- 3526 Mar, [facility] [place] [facility] [address] [id number] [place] [address]- 4381 Mar, [facility] [place] [facility] [address] [id number] [place] [address]- 0959 Mar, [facility] [place] [facility] [address] [id number] [place] [address]- 6104 Mar, [facility] [place] [facility] [address] [id number] [place] [address]- 8369 Feb, [facility] [place] [facility] [address] [id number] [place] [address]- 4070 Feb, [facility] [place] [facility] [address] [id number] [place] [address]- 7624 Feb, [facility] [place] [facility] [address] [id number] [place] [address]- 9634 Feb, [facility] [place] [facility] [address] [id number] [place] [address]- 7586 Feb, [facility] [place] [facility] [address] [id number] [place] [address]- 0612 Feb, [facility] [place] [facility] [address] [id number] [place] [address]- 9079 Feb, [facility] [place] [facility] [address] [id number] [place] [address]- 0649 Feb, [facility] [place] [facility] [address] [id number], [place] [address]- 8705 Jan, [facility] [place] [facility] [address] [id number], [place] [address]- 2079 Jan, [facility] [place] [facility] [address] [id number] [place] [address]- 5711 16 Jan, 2014 [facility] [place] [facility] [address] [id number] [place] [address]- 4134 16 Jan, 2014 [facility] [place] [facility] [address] [id number] [place] [address]- 6664 15 Jan, 2014 [facility] [place] [facility] [address] [id number] [place] [address]- 8373 15 Jan, 2014 [facility] [place] [facility] [address] [id number] [place] [address]- 6521 14 Jan, 2014 [facility] [place] [facility] [address] [id number] [place] [address]- 0035 14 Jan, 2014 [facility] [place] [facility] [address] [id number] [place] [address]- 4461 14 Jan, 2014 [facility] [place] [facility] [address] [id number] [place] [address]- 2730 14 Jan, 2014 [facility] [place] [facility] [address] [id number] [place] [address]- 3317 18 Dec, 2013 [facility] [place] [facility] [address] [id number] [place] [address]- 0646 18 Dec, 2013 [facility] [place] [facility] [address] [id number] [place] [address]- 7214 10 Dec, 2013 [facility] [place] [facility] [address] [id number] [place] [address]- 5246 10 Dec, 2013 [facility] [place] [facility] [address] [id number] [place] [address]- 8207 Nov, [facility] [place] [facility] [address] [id number] [place] [address]- 2291 Nov, [facility] [place] [facility] [address] [id number] [place] [address]- 0025 Nov, [facility] [place] [facility] [address] [id number] [place] [address]- 2345 Nov, [facility] [place] [facility] [address] [id number] [place] [address]- 8449 Nov, [facility] [place] [facility] [address] [id number] [place] [address]- 2791 Oct, [facility] [place] [facility] [address] [id number] [place] [address]- 6499 Oct, [facility] [place] [facility] [address] [id number] [place] [address]- 1575 Oct, [facility] [place] [facility] [address] [id number] [place] [address]- 1254 Oct, [facility] [place] [facility] [address] [id number] [place] [address]- 3872 Sep, [facility] [place] [facility] [address] [id number] [place] [address]- 6205 Sep, [facility] [place] [facility] [address] [id number] [place] [address]- 2896 Sep, [facility] [place] [facility] [address] [id number] [place] [address]- 6441 Sep, [facility] [place] [facility] [address] [id number] [place] [address]- 1131 Sep, [facility] [place] [facility] [address] [id number] [place] [address]- 5944 Sep, [facility] [place] [facility] [address] [id number] [place] [address]- 8365 Sep, [facility] [place] [facility] [address] [id number] [place] [address]- 1792 Sep, [facility] [place] [facility] [address] [id number] [place] [address]- 7940 August, [facility] [place] [facility] [address] [id number] [place] [address]- 2586 August, [facility] [place] [facility] [address] [id number] [place] [address]- 0735 August, [facility] [place] [facility] [address] [id number] [place] [address]- 0695 August, [facility] [place] [facility] [address] [id number] [place] [address]- 8023 August, [facility] [place] [facility] [address] [id number] [place] [address]- 2854 August, [facility] [place] [facility] [address] [id number] [place] [address]- 7242 August, [facility] [place] [facility] [address] [id number] [place] [address]- 7558 Jul, [facility] [place] [facility] [address] [id number] [place] [address]- 9041 Jul, [facility] [place] [facility] [address] [id number] [place] [address]- 8903 Jul, [facility] [place] [facility] [address] [id number] [place] [address]- 8960 Jul, [facility] [place] [facility] [address] [id number] [place] [address]- 8748 Jul, [facility] [place] [facility] [address] [id number] [place] [address]- 9895 Jul, [facility] [place] [facility] [address] [id number] [place] [address]- 7111 Jul, [facility] [place] [facility] [address] [id number] [place] [address]- 8483 Jul, [facility] [place] [facility] [address] [id number] [place] [address]- 1123 Jul, [facility] [place] [facility] [address] [id number] [place] [address]- 1568 Jul, [facility] [place] [facility] [address] [id number] [place] [address]- 4525 Jul, [facility] [place] [facility] [address] [id number] [place] 9188 Jul, [facility] [place] [facility] [address] [id number] [place] [address]- 9367 Jun, [facility] [place] [facility] [address] [id number] [place] 1690 Jun, [facility] [place] [facility] [address] [id number] [place] [address]- 9079 Jun, [facility] [place] [facility] [address] [id number] [place] [address]- 9070 Jun, [facility] [place] [facility] [address] [id number] [place] [address]- 4934 Jun, [facility] [place] [facility] [address] [id number] [place] [address]- 5701 May, [facility] [place] [facility] [address] [id number] [place] [address]- 8703 May, [facility] [place] [facility] [address] [id number] [place] [address]- 4656 May, [facility] [place] [facility] [address] [id number] [place] [address]- 4107 May, [facility] [place] [facility] [address] [id number] [place] [address]- 3801 May, [facility] [place] [facility] [address] [id number] [place] [address]- 4620 May, [facility] [place] [facility] [address] [id number] [place] [address]- 7988 May, [facility] [place] [facility] [address] [id number] [place] [address]- 6715 May, [facility] [place] [facility] [address] [id number] [place] [address]- 8005 Mar, [facility] [place] [facility] [address] [id number] [place] [address]- 9468 Mar, [facility] [place] [facility] [address] [id number] [place] [address]- 0147 Mar, [facility] [place] [facility] [address] [id number] [place] [address]- 8499 Mar, [facility] [place] [facility] [address] [id number], [place] [address]- 9166 Mar, [facility] [place] [facility] [address] [id number] [place] [address]- 9898 Mar, [facility] [place] [facility] [address] [id number] [place] [address]- 4783 Feb, [facility] [place] [facility] [address] [id number] [place] [address]- 0461 Feb, [facility] [place] [facility] [address] [id number], [place] [address]- 4633 Jan, [facility] [place] [facility] [address] [id number] [place] 9567 Jan, [facility] [place] [facility] [address] [id number], [place] [address]- 8184 Jan, [facility] [place] [facility] [address] [id number], [place] [address]- 3196 Jan, [facility] [place] [facility] [address] [id number], [place] [address]- 6591 Jan, [facility] [place] [facility] [address] [id number], [place] [address]- 2902 Jan, [facility] [place] [facility] [address] [id number], [place] [address]- 9751 Jan, [facility] [place] [facility] [address] [id number], [place] [address]- 0820 Jan, [facility] [place] [facility] [address] [id number], [place] [address]- 9282 08 Jan, 2013 [facility] [place] [facility] [address] [id number], [place] [address]- 8295 Jan, [facility] [place] [facility] [address] [id number], [place] [address]- 2587 16 Dec, 2012 [facility] [place] [facility] [address] [id number], [place] [address]- 7674 Nov, [facility] [place] [facility] [address] [id number], [place] [address]- 1066 Nov, [facility] [address] [id number], [place] [address]- 6346 Nov, [facility] [address] [id number], [place] [address]- 4806 Oct, [facility] [address], [place] [address]- 7793 Oct, [facility] [address] [id number] [place] [address]- 7462 August, [facility] [address], [place] [address]- 6157 Apr, [facility] [address] [id number], [place] [address]- 7142 Apr, [facility] [address], [place] [address]- 2538 Feb, [facility] [address], [place] [address]- 3951 Feb, [facility] [address], [place] [address]- 7756 Dec, [facility] [address], [place] [address]- 0122 Dec, [facility] [address] [id number], [place] [address]- 9443 Oct, [facility] [address] [id number], [place] [address]- 7731 Oct, [facility] [address] 4330 Oct, [facility] [address] [id number] [id number]- 5867 Jul, IMMUNIZATIONS No Known Immunizations SOCIAL HISTORY Never Assessed REASON FOR VISIT Med Refills PLAN OF CARE VITAL SIGNS MEDICATIONS Medication Instructions Dosage Frequency Start Date End Date Duration [facility] Base[facility] MCG/ACT Inhalation every 4 hrs 2 puffs as needed 4h Feb, Active Metformin HCl 1000MG Orally 2 times a day TAKE ONE TABLET BY MOUTH TWICE DAILY 12h 90 days Active Breo Ellipta 100-25 mcg/inh INHALE ONE PUFF BY MOUTH ONCE DAILY AT THE SAME TIME EACH DAY Active RESULTS No Results PROCEDURES No Known [...]
--- OUTSIDE RECORDS SUMMARY | 2018-09-02 14:26 | XMS REPORT ---
Author Author UMESH PINEDA [facility] eClinicalWorks Address Unknown Phone Unavailable Care Team Providers Care Slip Laster Name Role Phone UMESH PINEDA CP Unavailable [...] Date End Date Status Dosage ProAir HFA [facility] [address]-91 90 mcg/actuation Inhalation every 4 hrs Nov 2 puffs as needed Spironolactone [facility] 56752663092 50MG Orally Once a day 1 tablet sertraline [facility] 0 100 mg Once a day November 15, 2012 take 1 tablet ( 100 mg) by oral route once daily Norvasc [facility] [address]-45 10 mg Orally Once a day 1 tablet Nexium [facility] [address]-94 40 mg Orally Once a day 1 capsule Pravastatin Sodium [facility] 88358215929 10 MG Orally Once a day 1 tablet Gabapentin [facility] [address]-13 600 MG Orally Three times a day 1 tablet Myrbetriq [facility] [address]-88 50 MG Orally Once a day 1 tablet Vistaril [facility] [address]-02 25 MG Orally every 8 hrs Jan 29, 2016 1 capsule as needed Triamcinolone Acetonide [facility] 48020238727 0.5 % APPLY TOPICALLY TWICE DAILY metformin [facility] [address]-48 1,000 mg orally 2 times a day July 05, 2014 1 tablet Spironolactone [facility] [address]-47 50 mg Orally Once a day 1 tablet Breo Ellipta [facility] [address]-17 100-25 mcg/dose Inhalation Once a day July 05, 2014 inhale 1 puff by inhalation route once daily at the same time each day Premarin [facility] 46359463548 0.625 MG/GM insert 0.5 gram by vaginal route twice weekly trazodone [facility] [address]-31 150 mg July 05, 2013 1 Daily by Oral route 1 time per day Take at HS for sleep Sertraline HCl [facility] [address]-50 100 MG Orally Once a day 1 tablet Trazodone HCl [facility] [address]-02 150 MG Orally Once a day 1 tablet at bedtime as needed Levothyroxine Sodium [facility] 05626830128 150 MCG Orally Once a day 1 tablet Tizanidine HCl [facility] [address]-91 4 MG Orally 3 times a day 1 1/2 tablets Invega Sustenna [facility] [address]-41 234 MG/1.5ML Intramuscular Once q monthly on the 1 drop Restasis [facility] [address]-99 0.05 % November 15, 2012 instill 1 drop into affected eye(s) by ophthalmic route 2 times per day Claritin [facility] [address]-07 10 mg Orally Once a day 1 tablet Mupirocin [facility] [address]-58 2 % Externally Three times a day Apr 20, 2014 1 Application by Nasal route 2 times per day to each nare--disp 22 gram tube Loxapine Succinate [facility] [address]-00 25 MG Orally 4 times a day PRN 1 capsule Procedures Procedure Coding System Code Date THER/PROPH/DIAG INJ, SC/IM CPT-4 76225 Feb 03, 2016 INVEGA (PT'S OWN) CPT-4 72234 Feb 03, 2016 Results No Known Results Summary Purpose eClinicalWorks Submission
--- OUTSIDE RECORDS SUMMARY | 2018-09-02 14:26 | XMS REPORT ---
Author Author EDWINUMESH CASIANO Organization [facility] [address] Address [address] [place] [address] Care Team Providers Care Photo Checker And Assembler Name Role Phone UMESH PINEDA Unavailable PROBLEMS Type Condition ICD9-CM Code [id number] Code Onset Dates Condition Status SNOMED Code Problem OAB (overactive bladder) N32.81 Active 469150008 Problem Depression with anxiety F41.8 Active 021557813 Problem Other seasonal allergic rhinitis J30.2 Active 651924010 Problem Chronic obstructive pulmonary disease, unspecified COPD type J44.9 Active 69132551 Problem Tobacco abuse Z72.0 Active 212020577 Problem Morbid obesity due to excess calories E66.01 Active 306006898 Problem Dyslipidemia E78.5 Active 198298121 Problem Hypothyroidism (acquired) E03.9 Active 663819577 Problem Essential hypertension I10 Active 41918684 Problem Diabetic polyneuropathy associated with type 2 diabetes mellitus E11.42 Active 823375973 Problem Type 2 diabetes mellitus with diabetic neuropathic arthropathy, 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 Active 538900430 Problem Type 2 diabetes mellitus without complication, without long-term current use of insulin E11.9 Active 620725692 Problem Paranoid schizophrenia F20.0 Active 89406022 Problem Chronic pain syndrome G89.4 Active 447040181 Problem Migraine without aura and without status migrainosus, not intractable G43.009 Active 012327197 Problem Gastroesophageal reflux disease, esophagitis presence not specified K21.9 Active 244774321 Problem Seasonal allergic rhinitis due to pollen J30.1 Active 55639010 Problem COPD exacerbation J44.1 Active 439521790 Problem Seasonal allergic rhinitis due to other allergic trigger J30.89 Active 501072718 Problem Schizoaffective disorder, depressive type F25.1 Active 86514059 Problem History of lupus Z87.39 Active 728632700 Problem Gastroesophageal reflux disease without esophagitis K21.9 Active 440599958 Problem Menopausal syndrome (hot flashes) N95.1 Active 143406307 Problem Other allergic rhinitis J30.89 Active 577333207 Problem Primary insomnia F51.01 Active 8299614 Problem DM neuro manif type II E11.49 Active 61799764 ALLERGIES No Information ENCOUNTERS Encounter Location Date Diagnosis [place] [address], [place] [address] Dec, [place] [address] [place] [id number] [place] [address] 47252- 1277 Nov, [place] [address] [place] [id number] [place] [address] 09285- 6171 Nov, [place] [address] [place] [id number] [place] [address] 10193- 5920 Oct, Paranoid schizophrenia F20.0 [place] [id number] [address] Oct Chronic pain syndrome G89.4 and Schizoaffective disorder, depressive type F25.1 [place] [address] [place] [address] 26697- 6332 Oct, Chronic pain syndrome G89.4 and Schizoaffective disorder, depressive type F25.1 [place] [address] [place] [id number] [place] [address] 17658- 9747 Oct, Type 2 diabetes mellitus without complication, without long- term current use of insulin E11.9 [place] [address] [place] [id number] [place] [address] 19731- 0546 Oct, Essential hypertension I10 and DM neuro manif type II E11.49 [place] [address] [place] [id number] [place] [address] 13704- 3264 Oct, [place] [address] [place] [id number] [place] [address] 19694- 8140 Oct, Schizoaffective disorder, depressive type F25.1 and BMI 45.0 -49.9, adult Z68.42 [place] [address] [place] [id number] [place] [address] 25114- 7574 Oct, [facility] [address], [place] [address] Oct, Paranoid schizophrenia F20.0 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 [address] [place] [id number] [place] [address] 66911- 8017 Sep, Paranoid schizophrenia F20.0 [facility] [address] [place] [id number] [address] 0[address] Sep, Paranoid schizophrenia F20.0 and BMI 45.0-49.9, adult Z68.42 [facility] [address] [place] [id number] [address] 6872 Sep, Schizoaffective disorder, depressive type F25.1 [facility] [id number] [address] Sep, [facility] [address] [id number] [address] 4379 Sep, Paranoid schizophrenia F20.0 [facility] [address] [place] [id number] [place] [address] 11972- 7459 Sep, [facility] [address], [place] [address] 4718 Sep, Hypothyroidism (acquired) E03.9 [facility] [address], [place] [address] Sep, [facility] [address] [place] [id number] [address] 7247 August, Schizoaffective disorder, depressive type F25.1 [facility] [address] [place] [id number] [place] [address] 02208- 4668 August, [facility] [address] [address]67- 8031 August, [facility] [address] [place] [id number] [place] [address] 88457- 2243 August, [place] [address] 9[address]36- 9770 August, Paranoid schizophrenia F20.0 [place] [address] 74470- 0551 August, History of lupus Z87.39 and Chronic pain syndrome G89.4 [place] [address] 30298- 3998 August, [facility] [address] 26977 -2985 August, Seasonal allergic rhinitis, unspecified trigger J30.2 and BMI 45.0-49.9, adult Z68.42 [place] [address] 83551- 7958 Jul, Schizoaffective disorder, depressive type F25.1 [place] [address] [place] [id number] [place] [address] 93166- 8009 Jul, [place] [address] 63846- 5688 Jul, Hypothyroidism (acquired) E03.9 [place] [address] [place] [id number] [place] [address] 21713- 3731 Jul, Chronic obstructive pulmonary disease, unspecified COPD type J44.9 and Type 2 diabetes mellitus without complication, without long-term current use of insulin E11.9 [place] [address] [place] [id number] [place] [address] 01855- 9001 Jul, Paranoid schizophrenia F20.0 [place] [address] [place] [id number] [place] [address] 07178- 4911 Jun, Hypothyroidism (acquired) E03.9 and Seasonal allergic rhinitis due to pollen J30.1 [facility] [address] 709[address] -[address]98 Jun, Shortness of breath at rest R06.02 ; COPD exacerbation J44.1 and BMI 45.0-49.9, adult Z68.42 [facility] [address] [address]002- [address]009 Jun, [facility] [address] 31899- 5204 Jun, Paranoid schizophrenia F20.0 ; Depression with anxiety F41.8 and BMI 45.0-49.9, adult Z68.42 [facility] [address] 25639- 6106 20 Jun, 2017 Schizoaffective disorder, depressive type F25.1 [facility] [address] [id number] Jun, Dental caries K02.9 [place] [address] 20644- 2234 Jun, Paranoid schizophrenia F20.0 [facility] [address] 70641- 2372 May, Migraine without aura and without status migrainosus, not intractable G43.009 ; DM neuro manif type II E11.49 and Type 2 diabetes mellitus without complication, without long-term current use of insulin E11.9 [facility] [address] 21269- 9605 May, Migraine without aura and without status migrainosus, not intractable G43.009 [facility] [address] 55760- 3215 May, Depression with anxiety F41.8 [facility] [id number] [place] [id number] May, [facility] [address] [place] [address] 98285- 6012 May, [facility] [address] [place] [id number] [place] [address] 60321- 8139 May, [facility] [address] [place] [id number] [place] [address] 80614- 5531 May, Hypothyroidism (acquired) E03.9 [facility] [address] [place] [id number] [place] [address] 98394- 2615 May, Paranoid schizophrenia F20.0 [place] [address] [place] [id number] [place] [address] 84963- 2364 May, Type 2 diabetes mellitus without complication, [...] N32.81 and Controlled substance agreement signed Z79.899 [place] [address] [place] [id number] [place] [address] 27797- 8642 May, Controlled substance agreement signed Z79.899 [place] [address] [place] [id number] [place] [address] 31444- 8856 Apr, [facility] [address] [place] [id number] [place] [address] [id number] Apr, Dental examination Z01.20 [place] [address] [place] [id number] [place] [address] 84213- 7269 Apr, Paranoid schizophrenia F20.0 [facility] [address], [place] [address]- 2588 Apr, Hypertension, unspecified type I10 [facility] [address] [place] [address] 27304- 6817 Apr, Paranoid schizophrenia F20.0 [facility] [address] [place] [id number] [place] [address] 16678- 2476 Apr, [facility] [address] [place] [id number] [place] [address] 91024- 2186 Apr, Tobacco abuse Z72.0 [facility] [address] [place] [id number] [place] [address] 28997- 1009 Apr, [facility] [address] [place] [id number] [place] [address] 47963- 9412 Mar, [facility] [address] [place] [id number] [place] [address] 98214- 9068 Mar, Paranoid schizophrenia F20.0 and BMI 45.0-49.9, adult Z68.42 [facility] [address] [place] [id number] [place] [address] 09133- 2978 Mar, Schizoaffective disorder, depressive type F25.1 [facility] [address] [place] [id number] [place] [address] 35639- 8596 Mar, [facility] [address] [place] [id number] [place] [address] 65016- 6432 Mar, Hypothyroidism, unspecified type E03.9 [facility] [address] [place] [id number] [place] [address] 53915- 9726 Mar, Schizoaffective disorder, depressive type F25.1 [facility] [address] [place] [address] 11294 -7281 Feb, Gastroenteritis K52.9 and BMI 45.0-49.9, adult Z68.42 [facility] [address] [place] [id number] [place] [address] 56088- 4052 Feb, [place] [address] 27791- 1730 Feb, [place] [address] 20060- 0440 Feb, [place] [address] 39826- 6166 Feb, [place] [address] 69491- 0907 Feb, Paranoid schizophrenia F20.[address] 21577- 9727 Feb, Gastroesophageal reflux disease without esophagitis K21.9 ; Other seasonal allergic rhinitis J30.2 ; Other allergic rhinitis J30.89 ; Tobacco abuse Z72.0 and BMI 40.0-44.9, adult Z68.[address] 75193- 0812 Feb, Onychomycosis B35.1 ; Callus of foot L84 and DM neuro manif type II E11.[address] 44820- 9509 Jan, Chronic allergic rhinitis J30.[address] 18080- 0011 Jan, [place] [address] 27190- 4653 Jan, Schizoaffective disorder, depressive type F25.[address] 12959- 1953 Jan, [facility] [address] [place] [id number] [place] [address] 88969 -2808 Jan, Sore throat J02.9 and Seasonal allergic rhinitis due to other allergic trigger J30.89 [place] [address] [place] [address] [place] [address] 6021 Jan, [facility] [address] [place] [id number] [place] [address] 86179- 7674 Jan, [facility] [address] [place] [id number] [place] [address] 93742 -2379 Jan, Chronic allergic rhinitis J30.9 [facility] [address] [place] [id number] [place] [address] 77232- 9741 Dec, Paranoid schizophrenia F20.0 ; Primary insomnia F51.01 and Schizoaffective disorder, depressive type F25.1 [facility] [address] 66567- 5572 Dec, Chronic pain syndrome G89.4 ; Cervicalgia of occipito- atlanto-axial region M54.2 ; Menopausal syndrome (hot flashes) N95.1 and Encounter for immunization Z23 [facility] [address] [place] [id number] [place] [address] 81589- 0757 [address], 2016 [facility] [address] [place] [id number] [place] [address] 09358- 0875 Dec, [facility] [address] [place] [id number] [place] [address] 24694- 5875 08 Dec, [address] [facility] [address] [place] [address] 86469- 8049 Dec, Schizoaffective disorder, depressive type F25.1 [facility] [address] [place] [id number] [place] [address] 49726- 2215 Nov, Hypothyroidism, unspecified type E03.9 [facility] [address] [place] [id number] [place] [address] 14473 -9998 Nov, Acute seasonal allergic rhinitis due to other allergen J30.89 [facility] [address] [place] [id number] [place] [address] 78506- 0779 Nov, [facility] [address] [place] [id number] [place] [address] 80668- 5135 Nov, Hypothyroidism, unspecified type E03.9 and Other elevated white blood cell (WBC) count D72.828 [place] [address] [place] [id number] [place] [address] 27187- 6578 Nov, Schizoaffective disorder, depressive type F25.1 [place] [address] [place] [id number] [place] [address] 68352- 8914 Nov, Paranoid schizophrenia F20.0 [place] [address] [place] [id number] [place] [address] 53572- 0071 Nov, Type 2 diabetes mellitus without complication, without long- term current use of insulin E11.9 ; Morbid obesity due to excess calories E66.01 and Chronic pain syndrome G89.4 [place] [address] [place] [id number] [place] [address] 28285- 1955 Oct, Paranoid schizophrenia F20.0 [place] [address] [place] [id number] [place] [address] 10332- 5099 Oct, [place] [address] [place] [id number] [place] [address] 39444- 4502 Oct, Schizoaffective disorder, depressive type F25.1 [place] [address] [place] [id number] [place] [address] 90105- 8646 Oct, Hypothyroidism, unspecified type E03.9 and Other elevated white blood cell (WBC) count D72.828 [place] [address] [place] [id number] [place] [address] 75956- 3676 Oct, Morbid obesity due to excess calories E66.01 ; Chronic obstructive pulmonary disease, unspecified COPD type J44.9 ; History of lupus Z87.39 ; Hypothyroidism, unspecified type E03.9 ; Gastroesophageal reflux disease without esophagitis K21.9 ; Primary insomnia F51.01 and Chronic pain syndrome G89.4 [place] [address] [place] [id number] [place] [address] 10093- 5867 Sep, [facility] [address], [place] [address]- 4156 Sep, [facility] [address] [place] [address] 27771- 2385 Sep, [facility] [address] [place] [address] 40970- 7998 Sep, Paranoid schizophrenia F20.0 [facility] [address] [place] [id number] [place] [address] 10673- 1619 Sep, [facility] [address] [place] [id number] [place] [address] 43481- 7353 Sep, Paranoid schizophrenia F20.0 [facility] [address] [place] [address] 52498- 6212 Sep, [facility] [address] [place] [id number] [place] [address] 03249- 8020 August, Paranoid schizophrenia F20.0 [facility] [address] [place] [address] 50179- 5119 Jul, [facility] [address] [place] [id number] [place] [address] 00156- 0261 Jul, Type 2 diabetes mellitus without complication, without long- term current use of insulin E11.9 ; Morbid obesity due to excess calories E66.01 ; Depression with anxiety F41.8 ; Hypothyroidism, unspecified type E03.9 ; Seasonal allergic rhinitis due to other allergic trigger J30.89 ; Pain, dental K08.89 and Gastroesophageal reflux disease without esophagitis K21.9 [facility] [address] [id number] Jul, Dental examination Z01.20 [facility] [address] [place] [address] 63156- 5126 07 Jul, [address] [facility] [address] [place] [address] 77148- 1494 Jun, Paranoid schizophrenia F20.0 and Depression with anxiety F41.8 [place] [address] [place] [id number] [place] [address] 50791- 7930 10 Jun, 2016 Paranoid schizophrenia F20.0 and Depression with anxiety F41.8 [place] [address] [place] [id number] [place] [address] 07876- 7265 09 Jun, 2016 [place] [address] [place] [id number] [place] [address] 73608- 2955 Jun, [facility] [place] [id number] [place] [address] 71721 -0459 Jun, Seasonal allergic rhinitis due to other allergic trigger J30.89 [facility] [place] [id number] [place] [address] 58477 -8706 May, Sore throat J02.9 ; Other viral agents as the cause of diseases classified elsewhere B97.89 and Acute upper respiratory infection, unspecified J06.9 [place] [id number] [place] [address] 44908- 9737 08 May, 2016 Paranoid schizophrenia F20.0 and Depression with anxiety F41.8 [place] [id number] [place] [address] 80436- 6891 Apr, Other seasonal allergic rhinitis J30.2 [place] [id number] [place] [address] 60109- 7785 Apr, Paranoid schizophrenia F20.0 and Depression with anxiety F41.8 [facility] [place] [id number] [place] [address] 90923 -2769 Apr, Bronchitis J40 and Sore throat J02.9 [place] [id number] [place] [address] 35472- 1310 Apr, Type 2 diabetes mellitus without complication, without long- term current use of insulin E11.9 [facility] [place] [id number] [place] [address] 80612 -3097 Apr, Bronchitis J40 [place] [address] [place] [id number] [place] [address] 34247- 4584 Apr, [place] [address] [id number] [place] [address] 80979- 5182 Apr, [place] [address] [id number] [place] [address] 78483- 1034 Mar, Type 2 diabetes mellitus without complication, [...] Other seasonal allergic rhinitis J30.2 [place] [id number] [place] [address] 76509- 8010 Mar, Paranoid schizophrenia F20.0 and Depression with anxiety F41.8 [place] [address] [id number] [place] [address] 18476- 3981 Feb, [place] [id number] [place] [address] 38422- 1893 Feb, [place] [id number] [place] [address] 24050- 7227 Feb, [place] [id number] [place] [address] 51576- 8523 Feb, [place] [address] [id number] [place] [address] 45067- 2288 Feb, Type 2 diabetes mellitus without complication, without long- term current use of insulin E11.9 ; ARIAS on CPAP G47.33 and Preoperative evaluation to rule out surgical contraindication Z01.818 [place] [address] [id number] [place] [address] 91371- 2156 Feb, Paranoid schizophrenia F20.0 and Depression with anxiety F41.8 [facility] [address] [facility] [id number] [address] Jan, [facility] [id number] [place] [address] 85590- 4031 Jan, Paranoid schizophrenia F20.0 and Depression with anxiety F41.8 [facility] [id number] [place] [address] 42762- 3665 17 Jan, 2016 [facility] [id number] [place] [address] 10462- 7659 14 Jan, [address] [facility] [id number] [place] [address] 60377- 8515 10 Jan, [address] [facility] [id number] [place] [address] 25055- 3060 Jan, [facility] [id number] [place] [address] 05501- 4636 Jan, Paranoid schizophrenia F20.0 and Depression with anxiety F41.8 [facility] [id number] [place] [address] 17265- 4327 Jan, [facility] [id number] [place] [phone] Jan, [facility] [id number] [place] [address] [phone] 28 Dec, 2015 [facility] [id number] [place] [address] [phone]- [phone] 23 Dec, [address] [facility] [id number] [place] [address] [id number]- [phone] 16 Dec, 2015 Paranoid schizophrenia F20.0 and Depression with anxiety F41.8 [facility] [address] [id number] [phone] 31 Nov, 2015 [facility] [id number] [place] [address] [phone] Nov, Paranoid schizophrenia F20.0 [id number] [place] [address] [phone]- [phone] Nov, Paranoid schizophrenia F20.0 and Depression with anxiety F41.8 [place] [id number] [place] [address] [id number]- [phone] Nov, Type 2 diabetes mellitus without complication, without long- term current use of insulin E11.9 ; Paranoid schizophrenia F20.0 ; Chronic obstructive pulmonary disease, unspecified COPD type J44.9 ; Morbid obesity due to excess calories E66.01 and Parkinsonian tremor G20 [place] [id number] [place] [address] [phone] Nov, [place] [id number] [place] [address] [phone]- [phone] Oct, Paranoid schizophrenia F20.0 [place] [id number] [place] [address] [phone] Oct, Paranoid schizophrenia F20.0 [place] [id number] [place] [address] [phone] Oct, Paranoid schizophrenia F20.0 and Depression with anxiety F41.8 [place] [id number] [place] [address] [phone] Oct, [place] [address] [id number] [place] [address] 60952- 5082 Oct, Paranoid schizophrenia F20.0 and Depression with anxiety F41.8 [place] [id number] [place] [address] 45698- 7344 Oct, Nasal sore J34.89 [place] [address] [id number] [place] [address] 08859- 6121 Oct, Type 2 diabetes mellitus without complication, without long- term current use of insulin E11.9 ; Depression with anxiety F41.8 ; Hypothyroidism, unspecified type E03.9 and History of lupus Z87.39 [facility] [id number] [place] [address] 84813- 6388 Oct, [facility] [id number] [place] [address] 004547- 4852 Oct, Type 2 diabetes mellitus without complication, [...] R60.9 and History of lupus Z87.39 [facility] [id number] [place] [address] 79493- 4601 Feb, [facility] [id number] [place] [address]15- 2886 Jan, [facility] [id number] [place] [address]55- 1502 Jan, [facility] [id number] [place] [address] 96960- 1921 Jan, [facility] [id number] [place] [address] 79895- 8323 Dec, [facility] [id number] [place] [address] [id number] 0001 Nov, [facility] [id number] [place] [address] 193712- 4817 Nov, [facility] [id number] [place] [address] 293061- 0807 Oct, [facility] [id number] [place] [address] 437703- 6066 Oct, [facility] [id number] [address] 5009 17 Oct, 2014 [facility] [address] [address] 0456 Sep, Allergic rhinitis 477.9 [facility] [address] [facility] [id number] [place] [address]- 6935 11 Sep, 2014 Rhinitis, allergic 477.9 [facility] [address] [facility] [id number] [place] [address]- 7613 Sep, Rhinitis, allergic 477.9 [facility] [id number] [address]- 0589 Sep, [facility] [id number] [address] 45[address] August, [facility] [address] [address]- 4352 August, [facility] [address] [address]- 6215 August, [facility] [address] [address]- 1015 Jul, [facility] [address] [address]- 7866 Jul, [facility] [address] [address]- 5632 Jul, [facility] [address] [address]- 4182 16 Jun, 2014 [facility] [id number] [address]- 2885 16 Jun, 2014 [facility] [id number] [address]- 0612 Jun, [facility] [id number] [address]- 6736 Jun, [facility] [place] [facility] [address] [facility] [address] [id number] [place] [address]- 9543 11 Jun, 2014 [facility] [place] [facility] [address] [id number] [place] [address]- 1572 Jun, 2014 [facility] [place] [facility] [address] [id number] [place] [address]- 7824 Jun, 2014 [facility] [place] [facility] [address] [id number] [place] [address]- 4950 Jun, 2014 [facility] [place] [facility] [address] [id number] [place] [address]- 8967 May, 2014 [facility] [place] [facility] [address] [id number] [place] 3110 May, 2014 [facility] [place] [facility] [address] [id number] [place] [address]- 5164 May, 2014 [facility] [place] [facility] [address] [id number] [place] [address]- 8425 May, 2014 [facility] [place] [facility] [address] [id number] [place] [address]- 3646 Apr, [facility] [place] [facility] [address] [facility] 2001 [id number] [place] [address]- 1028 Mar, [facility] [place] [facility] [address] [id number] [place] [address]- 7707 Mar, [facility] [place] [facility] [address] [id number] [place] [address]- 8677 Mar, [facility] [place] [facility] [address] [id number] [place] [address]- 5466 Mar, [facility] [place] [facility] [address] [id number] [place] 3676 Mar, [facility] [place] [facility] [address] [id number] [place] [address]- 9892 06 Mar, 2014 [facility] [place] [facility] [address] [id number] [place] [address]- 4357 Mar, [facility] [place] [facility] [address] [id number] [place] [address]- 3012 Mar, [facility] [place] [facility] [address] [id number] [place] [address]- 3301 Mar, [facility] [place] [facility] [address] [id number] [place] [address]- 4597 Feb, [facility] [place] [facility] [address] [id number] [place] [address]- 8198 Feb, [facility] [place] [facility] [address] [id number] [place] [address]- 7323 Feb, [facility] [place] [facility] [address] [id number] [place] [address]- 8421 Feb, [facility] [place] [facility] [address] [id number] [place] [address]- 4531 Feb, [facility] [place] [facility] [address] [id number], [place] [address]- 6666 Feb, [facility] [place] [facility] [address] [id number] [place] [address]- 2767 Feb, [facility] [place] [facility] [address] [id number] [place] [address]- 0170 Feb, [facility] [place] [facility] [address] [id number], [place] [address]- 3589 Jan, [facility] [place] [facility] [address] [id number], [place] [address]- 1373 23 Jan, 2014 [facility] [place] [facility] [address] [id number]- 4378 16 Jan, 2014 [facility] [place] [facility] [address] [id number], [place] [address]- 8664 16 Jan, 2014 [facility] [place] [facility] [address] [id number][place]- 8548 15 Jan, 2014 [facility] [place] [facility] [address] [id number] [place] [address]- 9274 15 Jan, 2014 [facility] [place] [facility] [address] [id number] [place] [address]- 0786 14 Jan, 2014 [facility] [place] [facility] [address] [id number] [place] [address]- 7573 14 Jan, 2014 [facility] [place] [facility] [address] [id number] [place] [address]- 1234 14 Jan, 2014 [facility] [place] [facility] [address] [id number] [place] [address]- 8557 14 Jan, 2014 [facility] [place] [facility] [address] [id number] [place] [address]- 2604 18 Dec, 2013 [facility] [place] [facility] [address] [id number] [place] [address]- 5899 18 Dec, 2013 [facility] [place] [facility] [address] [id number] [place] [address]- 4816 10 Dec, 2013 [facility] [place] [facility] [address] [id number] [place] [address]- 3800 10 Dec, 2013 [facility] [place] [facility] [address] [id number] [place] [address]- 0229 Nov, [facility] [place] [facility] [address] [id number] [place] [address]- 9996 Nov, [facility] [place] [facility] [address] [id number] [place] [address]- 4033 Nov, [facility] [place] [facility] [address] [id number] [place] [address]- 2031 Nov, [facility] [place] [facility] [address] [id number] [place] [address]- 3627 Nov, [facility] [place] [facility] [address] [id number] [place] [address]- 6654 Oct, [facility] [place] [facility] [address] [id number] [place] [address]- 6781 Oct, [facility] [place] [facility] [address] [id number] [place] [address]- 7092 Oct, [facility] [place] [facility] [address] [id number] [place]- 5822 Oct, [facility] [place] [facility] [address] [id number] [place] [address]- 2737 Sep, [facility] [place] [facility] [address] [id number] [place] [address]- 3219 Sep, [facility] [place] [facility] [address] [id number] [place] [address]- 7814 Sep, [facility] [place] [facility] [address] [id number] [place] [address]- 0876 Sep, [facility] [place] [facility] [address] [id number] [place] [address]- 8004 Sep, [facility] [place] [facility] [address] [id number] [place] [address]- 5012 Sep, [facility] [place] [facility] [address] [id number] [place] [address]- 2168 Sep, [facility] [place] [facility] [address] [id number] [place] [address]- 6084 Sep, [facility] [place] [facility] [address] [id number] [place] [address]- 8793 August, [facility] [place] [facility] [address] [id number] [place] [address]- 6685 August, [facility] [place] [facility] [address] [id number] [place] [address]- 1413 August, [facility] [place] [facility] [address] [id number] [place] [address]- 1946 August, [facility] [place] [facility] [address] [id number] [place] [address]- 9403 August, [facility] [place] [facility] [address] [id number] [place] [address]- 5009 August, [facility] [place] [facility] [address] [id number] [place] [address]- 6203 August, [facility] [place] [facility] [address] [id number] [place] [address]- 1481 Jul, [facility] [place] [facility] [address] [id number] [place] [address]- 1064 Jul, [facility] [place] [facility] [address] [id number] [place] [address]- 7304 Jul, [facility] [place] [facility] [address] [id number] [place] [address]- 8574 Jul, [facility] [place] [facility] [address] [id number] [place] [address]- 3063 Jul, [facility] [place] [facility] [address] [id number] [place] [address]- 6793 Jul, [facility] [place] [facility] [address] [id number] [place] [address]- 3283 Jul, [facility] [place] [facility] [address] [id number] [place] [address]- 0856 Jul, [facility] [place] [facility] [address] [id number] [place] [address]- 4210 Jul, [facility] [place] [facility] [address] [id number] [place] [address]- 2479 Jul, [facility] [place] [facility] [address] [id number] [place] [address]- 3649 Jul, [facility] [place] [facility] [address] [id number] [place] [address]- 2794 Jul, [facility] [place] [facility] [address] [id number] [place] 8689 Jun, [facility] [place] [facility] [address] [id number] [place] [address]- 0550 Jun, [facility] [place] [facility] [address] [id number] [place] [address]- 2307 Jun, [facility] [place] [facility] [address] [id number] [place] [address]- 3173 Jun, [facility] [place] [facility] [address] [id number] [place] [address]- 7104 Jun, [facility] [place] [facility] [address] [id number] [place] [address]- 3920 May, [facility] [place] [facility] [address] [id number] [place] [address]- 1659 May, [facility] [place] [facility] [address] [id number] [place] [address]- 3444 May, [facility] [place] [facility] [address] [id number] [place] [address]- 9759 May, [facility] [place] [facility] [address] [id number] [place] [address]- 0175 May, [facility] [place] [facility] [address] [id number] [place] [address]- 8594 May, [facility] [place] [facility] [address] [facility] [address] [id number] [place] [address]- 0712 May, [facility] [place] [facility] [address] [facility] [address] [id number] [place] [address]- 1584 May, [facility] [place] [facility] [address] [id number], [place] [address]- 0934 Mar, [facility] [place] [facility] [address] [id number] [place] [address]- 6076 Mar, [facility] [place] [facility] [address] [id number] [place] [address]- 5223 Mar, [facility] [place] [facility] [address] [facility] [address] [id number] [place] [address]- 2739 Mar, [facility] [place] [facility] [address] [facility] [address] [id number], [place] [address]- 1083 Mar, [facility] [place] [facility] [address] [id number] [place] 3162 Mar, [facility] [place] [facility] [address] [id number], [place] [address]- 2300 Feb, [facility] [place] [facility] [address] [id number] [place] [address]- 4086 Feb, [facility] [place] [facility] [address] [id number] [place] [address]- 5622 Jan, [facility] [place] [facility] [address] [id number] [place] [address]- 7860 Jan, [facility] [place] [facility] [address] [id number] [place] [address]- 3694 Jan, [facility] [place] [facility] [address] [id number][place] [address]- 6703 Jan, [facility] [place] [facility] [address] [id number], [place] [address]- 8115 Jan, [facility] [place] [facility] [address] [id number], [place] [address]- 1771 Jan, [facility] [place] [facility] [address] [id number], [place] [address]- 4163 Jan, [facility] [place] [facility] [address] [id number], [place] [address]- 8227 Jan, [facility] [place] [facility] [address] [id number], [place] [address]- 4468 08 Jan, 2013 [facility] [place] [facility] [address] [id number][place] 1427 Jan, [facility] [place] [facility] [address] [id number], [place] [address]- 8173 16 Dec, 2012 [facility] [place] [facility] [address] [id number] [place] [address]- 0546 Nov, [facility] [place] [facility] [address] [facility] [address] [id number] [place] [address]- 2546 Nov, [facility] [address] [facility] [address] [id number] [address]- 2256 Nov, [facility] [address] [facility] [id number] [place] [address]- 1846 Oct, [facility] [address], [place] [address]- 6646 Oct, [facility] [address] [facility] [address] [id number] [place] [address]- 0089 August, [facility] [address] [address] 9956 Apr, [facility] [id number] [address]- 4026 Apr, [facility] [address], [place] [address]- 40[address] Feb, [facility] [address] 8920 Feb, [facility] [address] [address] 6421 Dec, [facility] [id number] 3768 Dec, [facility] [id number], [place] [address]- 1211 Oct, [facility] [id number], [place] [address]- [address] Oct, [facility] [id number], [place] [address]- 7853 Oct, [facility] [id number], [place] [address]- 3466 Jul, IMMUNIZATIONS Vaccine Route Administration Date Status INVEGA (PT'S OWN) IM Intramuscular August 03, 2017 Administered SOCIAL HISTORY Never Assessed REASON FOR VISIT Injection-[place] PLAN OF CARE Activity Details Follow Up 4 Weeks Reason:02 of september VITAL SIGNS MEDICATIONS Unknown Medications RESULTS No Results PROCEDURES Procedure Date Ordered Result Body Site INVEGA (PT'S OWN) August 03, 2017 THER/PROPH/DIAG INJ, SC/IM August 03, 2017 INSTRUCTIONS MEDICATIONS ADMINISTERED No Known [...] for psychosis/mental illness , last one in [facility] 4 years ago
--- OUTSIDE RECORDS SUMMARY | 2018-09-02 14:26 | XMS REPORT ---
Author Author UMESH PINEDA Organization [facility] Address [address] [place] [address] Care Team Providers Care Log Pond Worker Name Role Phone UMESH PINEDA Unavailable PROBLEMS Type Condition ICD9-CM Code GQI26-IO Code Onset Dates Condition Status SNOMED Code Problem History of lupus Z87.39 Active 779977136 Problem ARIAS on CPAP G47.33 Active 68857159 Problem OAB (overactive bladder) N32.81 Active 402914656 Problem Menopausal syndrome (hot flashes) N95.1 Active 932058881 Problem Other elevated white blood cell (WBC) count D72.828 Active 541821590 Problem Seasonal allergic rhinitis due to other allergic trigger J30.89 Active 332690763 Problem Gastroesophageal reflux disease without esophagitis K21.9 Active 912707285 Problem Primary insomnia F51.01 Active 2060545 Problem Schizoaffective disorder, depressive type F25.1 Active 06996988 Problem Morbid obesity due to excess calories E66.01 Active 554796972 Problem Depression with anxiety F41.8 Active 306466058 Problem Chronic obstructive pulmonary disease, unspecified COPD type J44.9 Active 88815551 Problem Peripheral edema R60.9 Active 000830181 Problem Paranoid schizophrenia F20.0 Active 37740285 Problem Chronic pain syndrome G89.4 Active 607776083 Problem Parkinsonian tremor G20 Active 847946278 Problem Hypothyroidism, unspecified type E03.9 Active 82396682 Problem Type 2 diabetes mellitus without complication, without long-term current use of insulin E11.9 Active 983282012 ALLERGIES No Information SOCIAL HISTORY Never Assessed PLAN OF CARE VITAL SIGNS MEDICATIONS Unknown Medications RESULTS No Results PROCEDURES Procedure Date Ordered Result Body Site INVEGA (PT'S OWN) July 01, 2016 THER/PROPH/DIAG INJ, SC/IM July 01, 2016 IMMUNIZATIONS Vaccine Route Administration Date Status INVEGA (PT'S OWN) IM Intramuscular July 01, 2016 Administered MEDICAL (GENERAL) HISTORY Type Description Date Medical [...] illness , last one in [facility] 4 years ago
--- OUTSIDE RECORDS SUMMARY | 2018-09-02 14:26 | XMS REPORT ---
Author Author EDWIN UMESH Organization [facility] Address [address] [place] [address] Care Team Providers Care Grease Rack Worker Name Role Phone UMESH PINEDA Unavailable PROBLEMS Type Condition ICD9-CM Code SQN39-CM Code Onset Dates Condition Status SNOMED Code Problem History of lupus Z87.39 Active 251504528 Problem ARIAS on CPAP G47.33 Active 48400365 Problem OAB (overactive bladder) N32.81 Active 899525295 Problem Menopausal syndrome (hot flashes) N95.1 Active 261091929 Problem Other elevated white blood cell (WBC) count D72.828 Active 352743450 Problem Seasonal allergic rhinitis due to other allergic trigger J30.89 Active 989101358 Problem Gastroesophageal reflux disease without esophagitis K21.9 Active 242787136 Problem Primary insomnia F51.01 Active 0657056 Problem Schizoaffective disorder, depressive type F25.1 Active 93889141 Problem Morbid obesity due to excess calories E66.01 Active 796474806 Problem Depression with anxiety F41.8 Active 758169440 Problem Chronic obstructive pulmonary disease, unspecified COPD type J44.9 Active 61244578 Problem Peripheral edema R60.9 Active 388651945 Problem Paranoid schizophrenia F20.0 Active 98881037 Problem Chronic pain syndrome G89.4 Active 158575235 Problem Parkinsonian tremor G20 Active 933136396 Problem Hypothyroidism, unspecified type E03.9 Active 03122153 Problem Type 2 diabetes mellitus without complication, without long-term current use of insulin E11.9 Active 470565181 ALLERGIES No Information SOCIAL HISTORY Never Assessed PLAN OF CARE Activity Details Follow Up 4 Weeks Reason: VITAL SIGNS MEDICATIONS Medication Instructions Dosage Frequency Start Date End Date Duration Status HydrOXYzine HCl 25 MG Orally every 8 hrs 1 tablet as needed 8h 30 day (s) Active Sertraline HCl 100 MG Orally Once a day 1 tablet 24h Active Clonazepam 0.25 MG Orally Twice a day 1 tablet on the tongue and allow to dissolve 12h 10 Jun, 2016 05 days Active Belsomra 20 mg Orally Once a day 1 tablet at bedtime as needed 24h 30 days Active Invega Sustenna 234 MG/1.5ML Intramuscular Once a month, on the 10th of every month 1.5 ml Active RESULTS No Results PROCEDURES Procedure Date Ordered Result Body Site [facility] VISIT ESTABLISHED PATIENT July 03, 2016 IMMUNIZATIONS No Known Immunizations MEDICAL (GENERAL) HISTORY [...]
--- OUTSIDE RECORDS SUMMARY | 2018-09-02 14:26 | XMS REPORT ---
Author Author ELVER ARROYO [facility] Address [address] [place] [address] Care Team Providers Care Powder Hand Name Role Phone ELVER ARROYO Unavailable PROBLEMS Type Condition ICD9-CM Code [id number] Code Onset Dates Condition Status SNOMED Code Problem History of lupus Z87.39 Active 131333553 Problem ARIAS on CPAP G47.33 Active 29667430 Problem OAB (overactive bladder) N32.81 Active 825841542 Problem Menopausal syndrome (hot flashes) N95.1 Active 109255592 Problem Other elevated white blood cell (WBC) count D72.828 Active 143732938 Problem Seasonal allergic rhinitis due to other allergic trigger J30.89 Active 031979561 Problem Gastroesophageal reflux disease without esophagitis K21.9 Active 610629169 Problem Primary insomnia F51.01 Active 9788651 Problem Schizoaffective disorder, depressive type F25.1 Active 06158012 Problem Morbid obesity due to excess calories E66.01 Active 432566255 Problem Depression with anxiety F41.8 Active 393540296 Problem Chronic obstructive pulmonary disease, unspecified COPD type J44.9 Active 65664665 Problem Peripheral edema R60.9 Active 156227250 Problem Paranoid schizophrenia F20.0 Active 60396973 Problem Chronic pain syndrome G89.4 Active 349369845 Problem Parkinsonian tremor G20 Active 405145636 Problem Hypothyroidism, unspecified type E03.9 Active 42424990 Problem Type 2 diabetes mellitus without complication, without long-term current use of insulin E11.9 Active 507629974 ALLERGIES Substance Reaction Event Type Date Status Penicillins Unknown Non Drug Allergy Jun, Active Sulfa(sulfonamide Antibiotics) Unknown Non Drug Allergy Jun, Active SOCIAL HISTORY Never Assessed PLAN OF CARE VITAL SIGNS Height 57 in 2016-07-01 Weight 212.8 lbs 2016-07-01 Temperature 97.2 degrees Fahrenheit 2016-07-01 Heart Rate 84 bpm 2016-07-01 Respiratory Rate 20 2016-07-01 BMI 46.04 kg/m2 2016-07-01 Blood pressure systolic 140 mmHg 2016-07-01 Blood pressure diastolic 98 mmHg 2016-07-01 MEDICATIONS Medication Instructions Dosage Frequency Start Date End Date Duration Status Spironolactone 50MG Orally Once a day 1 tablet 24h 30 Active Ibuprofen 600 MG Orally Three times a day 1 tablet 8h Mar,Jun 90 days Active Cetirizine HCl 10 MG Orally Once a day 1 tablet 24h May, Jun, 30 day(s) Active Vistaril 25MG Orally every 8 hrs 1 capsule as needed 8h 30 Active Myrbetriq 50 MG Orally Once a day 1 tablet 24h 90 days Active Januvia 25 MG Orally Once a day 2 tablets 24h Mar, 90 days Active Belsomra 20 mg Orally Once a day 1 tablet at bedtime as needed 24h 30 days Active Ventolin HFA 108 (90 Base) MCG/ACT Inhalation every 4 hrs 2 puffs as needed 4h Feb, 90 days Active PredniSONE 20 mg Orally Once a day 2 tablets 24h Jun, Jun, 05 days Active Nexium 40 mg Orally Once a day 1 capsule 24h 90 days Active Levothyroxine Sodium 150 MCG Orally Once a day 1 tablet 24h 30 Active Norvasc 10 mg Orally Once a day 1 tablet 24h 30 Active Invega Sustenna 234 MG/1.5ML Intramuscular Once a month, on the 10th of every month 1.5 ml Active HydrOXYzine HCl 25 MG Orally every 8 hrs 1 tablet as needed 8h 08 May, 2016 30 day(s) Active Breo Ellipta 100-25 mcg/dose Inhalation Once a day inhale 1 puff by inhalation route once daily at the same time each day 24h Jun,Mar 90 days Active Pravastatin Sodium 10 MG Orally Once a day 1 tablet 24h 30 Active Suvorexant 10 mg Orally Once a day 1 tablet at bedtime as needed 24h Mar Active Tizanidine HCl 4 MG Orally 3 times a day 1 1/2 tablets 8h Active Sertraline HCl 100 MG Orally Once a day 1 tablet 24h Active Metformin HCl 1000 MG Orally Twice a day 1 tablet with meals 12h Mar, 90 days Active Restasis 0.05 % instill 1 drop into affected eye(s) by ophthalmic route 2 times per day Oct, Active Ventolin HFA 108MCG/A INHALE TWO PUFFS BY MOUTH EVERY 4 HOURS NEEDED 17 Active RESULTS No Results PROCEDURES Procedure Date Ordered Result Body Site [facility] VISIT ESTABLISHED PATIENT July 01, 2016 IMMUNIZATIONS No Known Immunizations MEDICAL (GENERAL) [...]
--- OUTSIDE RECORDS SUMMARY | 2018-09-02 14:27 | XMS REPORT ---
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 Name Role Phone STRICKLANDSOTO Carias Unavailable PROBLEMS Type Condition ICD9-CM Code YEG57-YM Code Onset Dates Condition Status SNOMED Code Problem Other seasonal allergic rhinitis J30.2 Active 177034746 Problem Gastroesophageal reflux disease, esophagitis presence not specified K21.9 Active 053759771 Problem Tobacco abuse Z72.0 Active 160487600 Problem Seasonal allergic rhinitis due to pollen J30.1 Active 13092794 Problem History of lupus Z87.39 Active 074231032 Problem COPD exacerbation J44.1 Active 967386179 Problem OAB (overactive bladder) N32.81 Active 897884332 Problem Morbid obesity due to excess calories E66.01 Active 619263557 Problem Dyslipidemia E78.5 Active 021791903 Problem Migraine without aura and without status migrainosus, not intractable G43.009 Active 839699736 Problem Hypothyroidism (acquired) E03.9 Active 402739267 Problem Essential hypertension I10 Active 62433042 Problem Type 2 diabetes mellitus without complication, without long-term current use of insulin E11.9 Active 786285698 Problem Gastroesophageal reflux disease without esophagitis K21.9 Active 343977201 Problem Chronic pain syndrome G89.4 Active 160048963 Problem Paranoid schizophrenia F20.0 Active 36787452 Problem Primary insomnia F51.01 Active 2377225 Problem DM neuro manif type II E11.49 Active 14089571 Problem Depression with anxiety F41.8 Active 919664787 Problem Seasonal allergic rhinitis due to other allergic trigger J30.89 Active 507441045 Problem Menopausal syndrome (hot flashes) N95.1 Active 329078323 Problem Chronic obstructive pulmonary disease, unspecified COPD type J44.9 Active 13266530 Problem Schizoaffective disorder, depressive type F25.1 Active 71286757 Problem Other allergic rhinitis J30.89 Active 941993553 ALLERGIES No Information ENCOUNTERS Encounter Location Date Diagnosis [facility] [id number] [address] Nov, [facility] [id number] [place] [address] 66633- 0560 Oct, [facility] [id number] [place] [address] 72335- 2273 Sep, Hypothyroidism (acquired) E03.9 [facility] [id number] [place] [address] 84856- 6609 Sep, [facility] [id number] [place] [address] 46478- 1404 August, Schizoaffective disorder, depressive type F25.1 [facility] [id number] [place] [address] 21196- 5012 August, [facility] [id number] [place] [address] 88466- 8291 August, [facility] [id number] [place] [address] 06729- 9599 August, [facility] [id number] [place] [address] 25013- 0234 August, Paranoid schizophrenia F20.0 [facility] [id number] [place] [address] 43186- 7711 August, History of lupus Z87.39 and Chronic pain syndrome G89.4 [facility] [id number] [place] [address] 40475- 7297 August, [facility] [id number] [place] [address] 60015 -9840 August, Seasonal allergic rhinitis, unspecified trigger J30.2 and BMI 45.0-49.9, adult Z68.42 [facility] [id number] [place] [address] 00871- 5327 Jul, Schizoaffective disorder, depressive type F25.1 [facility] [id number] [place] [address] 96815- 6544 Jul, [facility] [address] 95071- 1606 Jul, Hypothyroidism (acquired) E03.9 [facility] [address] 83719- 7313 11 Jul, 2017 Chronic obstructive pulmonary disease, unspecified COPD type J44.9 and Type 2 diabetes mellitus without complication, without long-term current use of insulin E11.9 [facility] [address] 44119- 1215 Jul, Paranoid schizophrenia F20.0 [facility] [address] 05670- 8821 Jun, Hypothyroidism (acquired) E03.9 and Seasonal allergic rhinitis due to pollen J30.1 [facility] [id number] [place] [address] 30852 -6409 Jun, Shortness of breath at rest R06.02 ; COPD exacerbation J44.1 and BMI 45.0-49.9, adult Z68.42 [facility] [id number] [place] [address] 10427- 0229 Jun, [facility] [id number] [place] [address] 84715- 1135 Jun, Paranoid schizophrenia F20.0 ; Depression with anxiety F41.8 and BMI 45.0-49.9, adult Z68.42 [facility] [id number] [place] [address] 98965- 5109 Jun, Schizoaffective disorder, depressive type F25.1 [facility] [id number] [place] [address] [id number] 13 Jun, 2017 Dental caries K02.9 [facility] [address] 66422- 2222 Jun, Paranoid schizophrenia F20.0 [facility] [address] [place] [address] 85531- 9221 May, Migraine without aura and without status migrainosus, not intractable G43.009 ; DM neuro manif type II E11.49 and Type 2 diabetes mellitus without complication, without long-term current use of insulin E11.9 [facility] [id number] [place] [address] 17555- 5086 May, Migraine without aura and without status migrainosus, not intractable G43.009 [facility] [id number] [place] [address] 57457- 7835 May, Depression with anxiety F41.8 [facility] [id number] [place] [address] [id number] May, [facility] [address] 68790- 7048 May, [facility] [id number] [place] [address] 45922- 8210 May, [facility] [address] 98013- 4503 May, Hypothyroidism (acquired) E03.9 [facility] [id number] [place] [address] 62987- 5046 May, Paranoid schizophrenia F20.0 [facility] [id number] [place] [address] 41272- 3821 May, Type 2 diabetes mellitus without complication, [...] and Controlled substance agreement signed Z79.899 [facility] [id number] [place] [address] 76319- 5647 May, Controlled substance agreement signed Z79.899 [facility] [id number] [place] [address] 64239- 1490 Apr, [facility] [address] [id number] Apr, Dental examination Z01.20 [facility] [address] 16787- 1281 Apr, Paranoid schizophrenia F20.0 [facility] [id number] [place] [address] 34021- 2129 Apr, Hypertension, unspecified type I10 [facility] [id number] [place] [address] 35352- 3798 Apr, Paranoid schizophrenia F20.0 [facility] [address] 68366- 3436 Apr, [facility] [id number] [place] [address] 71133- 7812 Apr, Tobacco abuse Z72.0 [facility] [id number] [place] [address] 12842- 7908 Apr, [facility] [id number] [place] [address] 48520- 1804 Mar, [facility] [address] 65177- 0762 Mar, Paranoid schizophrenia F20.0 and BMI 45.0-49.9, adult Z68.42 [facility] [id number] [place] [address] 49818- 6043 Mar, Schizoaffective disorder, depressive type F25.1 [place] [id number] [place] [address] 76100- 7144 Mar, [place] [address] 26220- 5533 Mar, Hypothyroidism, unspecified type E03.9 [place] [address] 25757- 3749 Mar, Schizoaffective disorder, depressive type F25.1 [facility] [address] 80912 -6678 Feb, Gastroenteritis K52.9 and BMI 45.0-49.9, adult Z68.42 [address] [address] 10482- 5343 Feb, [place] [address] 95449- 6558 Feb, [place] [address] 06930- 1860 Feb, [address] 88350- 8561 16 Feb, 2017 [address] [address] 97757- 2840 Feb, Paranoid schizophrenia F20.[address] 70079- 8469 06 Feb, 2017 Gastroesophageal reflux disease without esophagitis K21.9 ; Other seasonal allergic rhinitis J30.2 ; Other allergic rhinitis J30.89 ; Tobacco abuse Z72.0 and BMI 40.0-44.9, adult Z68.[address] 73623- 8399 03 Feb, 2017 Onychomycosis B35.1 ; Callus of foot L84 and DM neuro manif type II E11.[address] 59719- 0970 Jan, Chronic allergic rhinitis J30.9 [facility] [id number] [place] [address] 69561- 0875 16 Jan, 2017 [facility] [address] 47376- 2424 Jan, Schizoaffective disorder, depressive type F25.1 [facility] [address] 70537- 9879 Jan, [facility] [address] 03395 -9452 07 Jan, 2017 Sore throat J02.9 and Seasonal allergic rhinitis due to other allergic trigger J30.89 [address] [address] 72572- 5147 Jan, [place] [address] 47564- 9045 Jan, [facility] [address] 16847 -8481 Jan, Chronic allergic rhinitis J30.9 [place] [address] 14624- 9683 27 Dec, 2016 Paranoid schizophrenia F20.0 ; Primary insomnia F51.01 and Schizoaffective disorder, depressive type F25.1 [place] [address] 77839- 6175 21 Dec, 2016 Chronic pain syndrome G89.4 ; Cervicalgia of occipito- atlanto-axial region M54.2 ; Menopausal syndrome (hot flashes) N95.1 and Encounter for immunization Z23 [place] [address] 50317- 3628 14 Dec, 2016 [place] [address] 53473- 4838 13 Dec, 2016 [facility] [address] 65885- 0525 Dec, Paranoid schizophrenia F20.0 [place] [address] [place] [address] 40292- 2124 Dec, Schizoaffective disorder, depressive type F25.1 [facility] [id number] [place] [address] 34606- 9028 Nov, Hypothyroidism, unspecified type E03.9 [facility] [id number] [place] [address] 98294 -7659 Nov, Acute seasonal allergic rhinitis due to other allergen J30.89 [place] [id number] [place] [address] 20921- 3253 Nov, [place] [id number] [place] [address] 65465- 8391 Nov, Hypothyroidism, unspecified type E03.9 and Other elevated white blood cell (WBC) count D72.828 [place] [id number] [place] [address] 81711- 8392 Nov, Schizoaffective disorder, depressive type F25.1 [place] [id number] [place] [address] 64831- 7469 Nov, Paranoid schizophrenia F20.0 [facility] [id number] [place] [address] 59081- 9153 Nov, Type 2 diabetes mellitus without complication, without long- term current use of insulin E11.9 ; Morbid obesity due to excess calories E66.01 and Chronic pain syndrome G89.4 [address] [address] [place] [address] 02808- 3177 Oct, Paranoid schizophrenia F20.0 [place] [id number] [place] [address] 72909- 4974 Oct, [place] [id number] [place] [address] 42195- 3015 Oct, Schizoaffective disorder, depressive type F25.1 [facility] [address], [place] [address]- 0917 Oct, Hypothyroidism, unspecified type E03.9 and Other elevated white blood cell (WBC) count D72.828 [facility] [id number] [place] [address] 80946- 3377 Oct, Morbid obesity due to excess calories E66.01 ; Chronic obstructive pulmonary disease, unspecified COPD type J44.9 ; History of lupus Z87.39 ; Hypothyroidism, unspecified type E03.9 ; Gastroesophageal reflux disease without esophagitis K21.9 ; Primary insomnia F51.01 and Chronic pain syndrome G89.4 [place] [id number] [place] [address] 83042- 3261 Sep, [place] [id number] [place] [address] 40737- 4744 Sep, [place] [id number] [place] [address] 48735- 6503 Sep, [place] [id number] [place] [address] 35646- 5252 Sep, Paranoid schizophrenia F20.0 [place] [id number] [place] [address] 51203- 7696 Sep, [place] [id number] [place] [address] 45236- 3771 Sep, Paranoid schizophrenia F20.0 [facility] [id number] [place] [address] 79396- 1528 Sep, [facility] [id number] [place] [address] 23416- 8834 August, Paranoid schizophrenia F20.0 [facility] [id number] [place] [address] 90582- 2841 Jul, [facility] [id number] [place] [address] 99209- 2526 Jul, Type 2 diabetes mellitus without complication, without long- term current use of insulin E11.9 ; Morbid obesity due to excess calories E66.01 ; Depression with anxiety F41.8 ; Hypothyroidism, unspecified type E03.9 ; Seasonal allergic rhinitis due to other allergic trigger J30.89 ; Pain, dental K08.89 and Gastroesophageal reflux disease without esophagitis K21.9 [facility] [address] [place] [address] [id number] 12 Jul, 2016 Dental examination Z01.20 [place] [address] 01605- 3559 07 Jul, 2016 Paranoid schizophrenia F20.[address] 50094- 0662 13 Jun, 2016 Paranoid schizophrenia F20.0 and Depression with anxiety F41.8 [id number] [place] [address] 25060- 8500 10 Jun, 2016 Paranoid schizophrenia F20.0 and Depression with anxiety F41.8 [place] [id number] [place] [address] 99849- 7984 09 Jun, [address] 41565- 9296 Jun, [facility] [id number] [place] [address] 13090 -7216 Jun, Seasonal allergic rhinitis due to other allergic trigger J30.89 [facility] [address] [place] [id number] [place] [address] 82409 -4523 May, Sore throat J02.9 ; Other viral agents as the cause of diseases classified elsewhere B97.89 and Acute upper respiratory infection, unspecified J06.9 [id number] [place] [address] 83001- 7370 08 May, 2016 Paranoid schizophrenia F20.0 and Depression with anxiety F41.[address] 98777- 2213 Apr, Other seasonal allergic rhinitis J30.2 [place] [id number] [place] [address] 64670- 2210 Apr, Paranoid schizophrenia F20.0 and Depression with anxiety F41.8 [facility] [id number] [place] [address] 41151 -2303 Apr, Bronchitis J40 and Sore throat J02.9 [place] [address] 31080- 9994 Apr, Type 2 diabetes mellitus without complication, without long- term current use of insulin E11.9 [facility] [id number] [place] [address] 48982 -6640 Apr, Bronchitis J40 [place] [id number] [place] [address] 61975- 5872 Apr, [place] [address] 96180- 1464 Apr, [place] [id number] [place] [address] 86482- 3041 Mar, Type 2 diabetes mellitus without complication, [...] Other seasonal allergic rhinitis J30.2 [place] [id number] [place] [address] 74171- 7067 Mar, Paranoid schizophrenia F20.0 and Depression with anxiety F41.8 [place] [id number] [place] [address] 59238- 7130 Feb, [place] [id number] [place] [address] 59272- 9998 Feb, [facility] [address] [address]- 0623 Feb, [facility] [id number] [place] [address] 40874- 1741 Feb, [facility] [id number] [place] [address] 90581- 7545 Feb, Type 2 diabetes mellitus without complication, without long- term current use of insulin E11.9 ; ARIAS on CPAP G47.33 and Preoperative evaluation to rule out surgical contraindication Z01.818 [facility] [id number] [place] [address] 31234- 0359 09 Feb, 2016 Paranoid schizophrenia F20.0 and Depression with anxiety F41.8 [facility] [id number] [place] [address] 96877- 0534 Jan, [facility] [id number] [place] [address] 28056- 2975 Jan, Paranoid schizophrenia F20.0 and Depression with anxiety F41.8 [facility] [id number] [place] [address] 59251- 0042 Jan, [facility] [id number] [place] [address] 96938- 8552 Jan, Muscle strain T14.8 [facility] [id number] [place] [address] 23473- 7169 Jan, Paranoid schizophrenia F20.0 [facility] [address] [place] [address] 23361- 4551 Jan, [facility] [id number] [place] [address] 36844- 3918 Jan, Paranoid schizophrenia F20.0 and Depression with anxiety F41.8 [facility] [id number] [place] [address] 41513- 3229 Jan, [facility] [address] [address]- 0318 Jan, [facility] [address] [address]- 7620 28 Dec, 2015 [facility] [id number] [place] [address] 76561- 0202 23 Dec, 2015 Paranoid schizophrenia F20.0 [facility] [id number] [place] [address] 01604- 5473 16 Dec, 2015 Paranoid schizophrenia F20.0 and Depression with anxiety F41.8 [facility] [address] [place] [address] 30994- 3201 Nov, [facility] [id number] [place] [address] 95635- 0148 Nov, Paranoid schizophrenia F20.0 [facility] [id number] [place] [address] 64060- 8965 Nov, Paranoid schizophrenia F20.0 and Depression with anxiety F41.8 [facility] [address] [address]- 6459 Nov, Type 2 diabetes mellitus without complication, without long- term current use of insulin E11.9 ; Paranoid schizophrenia F20.0 ; Chronic obstructive pulmonary disease, unspecified COPD type J44.9 ; Morbid obesity due to excess calories E66.01 and Parkinsonian tremor G20 [facility] [address] [address]- 1762 Nov, [facility] [address] [address]- 4458 Oct, Paranoid schizophrenia F20.0 [facility] [address] [address]- 5763 Oct, Paranoid schizophrenia F20.0 [facility] [address] [address]- 1160 Oct, Paranoid schizophrenia F20.0 and Depression with anxiety F41.8 [place] [address] [address]- 8157 Oct, [place] [id number] [place] [address] 96444- 7393 Oct, Paranoid schizophrenia F20.0 and Depression with anxiety F41.8 [place] [id number] [place] [address] 94968- 6367 Oct, Nasal sore J34.89 [place] [id number] [place] [address] 32557- 2217 Oct, Type 2 diabetes mellitus without complication, without long- term current use of insulin E11.9 ; Depression with anxiety F41.8 ; Hypothyroidism, unspecified type E03.9 and History of lupus Z87.39 [place] [id number] [place] [address] 27569- 8203 Oct, [place] [id number] [place] [address] 89012- 4069 Oct, Type 2 diabetes mellitus without complication, [...] edema R60.9 and History of lupus Z87.39 [place] [address] [id number] [address] Feb, [place] [id number] [place] [address]- 9477 Jan, [place] [id number] [place] [address]356- 3742 Jan, [place] [address] [id number] [place] [address] Jan, [facility] [address] [facility] [id number] [place] [id number] Dec, [facility] [address] [facility] [id number] [place] [address] [address] Nov, [facility] [address] [facility] [id number] [place] [address] [address] Nov, [facility] [address] [facility] [id number] [place] [address] [address] Oct, [facility] [id number] [place] [address] [address] Oct, [facility] [id number] [place] [address] Oct, [facility] [id number] [place] [address] Sep, Allergic rhinitis 477.9 [facility] [id number] [address] Sep, Rhinitis, allergic 477.9 [facility] [id number] [address] Sep, Rhinitis, allergic 477.9 [facility] [id number] [address] Sep, [facility] [id number] [address] [address] August, [facility] [id number] [id number] [address] August, [facility] [id number], [place] [address] August, [facility] [address] [id number] [address] [address] Jul, [facility] [id number] [place] [address] 14 Jul, 2014 [facility] [place] [facility] [address] [id number] [place] [address] 13 Jul, 2014 [facility] [place] [facility] [address] [id number] [place] [address]- [address] 16 Jun, 2014 [facility] [place] [facility] [address] [id number] [place] [address] 9637 16 Jun, 2014 [facility] [place] [facility] [address] [id number] [place] [address]- [address] Jun, [facility] [place] [facility] [address] [id number] [place] [address] Jun, [facility] [place] [facility] [address] [id number] [place] [address]- 2881 Jun, [facility] [place] [facility] [address] [id number] [place] [address] Jun, [facility] [place] [facility] [address] [id number] [place] [address] 7947 Jun, [facility] [place] [facility] [address] [id number] [place] [address] Jun, [facility] [place] [facility] [address] [facility] [id number] [place] [address] May, [facility] [place] [facility] [address] [id number] [place] [address]- 9471 May, [facility] [place] [facility] [address] [id number] [place] [address]- [address] May, [facility] [place] [facility] [address] [id number] [place] [address]- [address] May, [facility] [place] [facility] [address] [id number] [place] [address]- 2906 Apr, [facility] [place] [facility] [address] [id number] [place] [address]- 3217 Mar, [facility] [place] [facility] [address] [id number] [place] [address]- 7920 Mar, [facility] [place] [facility] [address] [id number] [place] [address]- [address]233 Mar, [facility] [place] [facility] [address] [id number] [place] [address] Mar, [facility] [place] [facility] [address] [id number] [place] [address]- 487[address] Mar, [facility] [place] [facility] [address] [id number] [place] [address]- 0800 Mar, [facility] [place] [facility] [address] [id number] [place] [address]- 1771 Mar, [facility] [place] [facility] [address] [id number] [place] [address]- 5615 Mar, [facility] [place] [facility] [address] [id number] [place] [address]- 0312 Mar, [facility] [place] [facility] [address] [id number] [place] [address]- 0935 Feb, [facility] [place] [facility] [address] [id number] [place] [address] 6218 Feb, [facility] [place] [facility] [address] [id number] [place] [address]- 1065 Feb, [facility] [place] [facility] [address] [id number] [place] [address]- 6289 17 Feb, 2014 [facility] [place] [facility] [address] [id number] [place] [address]- 5463 Feb, [facility] [place] [facility] [address] [id number] [place] [address]- 5062 Feb, [facility] [place] [facility] [address] [id number] [place] [address]- 0990 Feb, [facility] [place] [facility] [address] [id number] [place] [address]- 3099 12 Feb, 2014 [facility] [place] [facility] [address] [id number] [place] [address]- 1653 23 Jan, 2014 [facility] [place] [facility] [address] [id number] [place] [address]- 1428 23 Jan, 2014 [facility] [place] [facility] [address] [id number] [place] [address]- 7028 16 Jan, 2014 [facility] [place] [facility] [address] [id number] [place] [address]- 1112 16 Jan, 2014 [facility] [place] [facility] [address] [id number] [place] [address]- 2129 15 Jan, 2014 [facility] [place] [facility] [address] [id number] [place] [address]- 6116 15 Jan, 2014 [facility] [place] [facility] [address] [id number] [place] [address]- 3791 14 Jan, 2014 [facility] [place] [facility] [address] [id number] [place] [address]- 6025 14 Jan, 2014 [facility] [place] [facility] [address] [id number] [place] [address]- 4545 14 Jan, 2014 [facility] [place] [facility] [address] [id number] [place] [address]- 2377 14 Jan, 2014 [facility] [place] [facility] [address] [id number] [place] [address]- 1080 18 Dec, 2013 [facility] [place] [facility] [address] [id number], [place] [address] 9[address] 18 Dec, 2013 [facility] [place] [facility] [address] [id number] [place] [address]- 7148 10 Dec, 2013 [facility] [place] [facility] [address] [id number] [place] [address]- 8065 10 Dec, 2013 [facility] [place] [facility] [address] [id number] [place] [address]- 5872 Nov, [facility] [place] [facility] [address] [id number] [place] [address]- 3947 Nov, [facility] [place] [facility] [address] [id number] [place] [address]- 4173 Nov, [facility] [place] [facility] [address] [id number] [place] [address]- 7308 Nov, [facility] [place] [facility] [address] [id number] [place] [address]- 4254 Nov, [facility] [place] [facility] [address] [id number] [place] [address]- 3476 Oct, [facility] [place] [facility] [address] [id number] [place] [address]- 4026 Oct, [facility] [place] [facility] [address] [id number] [place] [address]- 1142 Oct, [facility] [place] [facility] [address] [id number] [place] [address]- 0176 Oct, [facility] [place] [facility] [address] [id number] [place] [address]- 0663 Sep, [facility] [place] [facility] [address] [id number] [place] [address]- 3777 Sep, [facility] [place] [facility] [address] [id number] [place] [address]- 9150 Sep, [facility] [place] [facility] [address] [id number] [place] [address]- 4021 Sep, [facility] [place] [facility] [address] [id number] [place] [address]- 9640 Sep, [facility] [place] [facility] [address] [id number] [place] [address]- 5630 Sep, [facility] [place] [facility] [address] [id number] [place] [address]- 2188 Sep, [facility] [place] [facility] [address] [id number] [place] [address]- 9425 Sep, [facility] [address] [id number] [place] [address]- 6442 August, [facility] [place] [facility] [address] [id number] [place] [address]- 0907 August, [facility] [place] [facility] [address] [id number] [place] [address] August, [facility] [place] [facility] [address] [id number] [place] [address]- 2224 August, [facility] [place] [facility] [address] [id number] [place] [address]- 1029 August, [facility] [place] [facility] [address] [id number] [place] [address]- 2765 August, [facility] [place] [facility] [address] [id number] [place] [address]- 1876 August, [facility] [place] [facility] [address] [id number] [place] [address]- 5576 Jul, [facility] [place] [facility] [address] [id number] [place] [address]- 5207 Jul, [facility] [place] [facility] [address] [id number] [place] [address]- 0787 Jul, [facility] [place] [facility] [address] [id number] [place] [address]- 8987 Jul, [facility] [place] [facility] [address] [id number] [place] [address]- 5956 Jul, [facility] [place] [facility] [address] [id number] [place] [address]- 6534 Jul, [facility] [place] [facility] [address] [id number] [place] [address]- 9688 Jul, [facility] [place] [facility] [address] [id number] [place] [address]- 5968 Jul, [facility] [place] [facility] [address] [id number] [place] [address]- 5003 10 Jul, 2013 [facility] [place] [facility] [address] [id number] [place] [address]- 0588 Jul, [facility] [place] [facility] [address] [id number] [place] [address]- 7911 Jul, [facility] [place] [facility] [address] [id number] [place] [address]- 3936 Jul, [facility] [place] [facility] [address] [id number] [place] [address]- 4050 Jun, [facility] [place] [facility] [address] [id number] [place] [address]- 1696 Jun, [facility] [place] [facility] [address] [facility] [id number] [place] [address]- 7629 Jun, [facility] [place] [facility] [address] [id number] [place] [address]- 7832 Jun, [facility] [place] [facility] [address] [facility] [id number] [place] [address]- 4821 Jun, [facility] [place] [facility] [address] [id number] [place] [address]- 0562 May, [facility] [place] [facility] [address] [facility] [id number] [place] [address]- 5627 May, [facility] [place] [facility] [address] [id number] [place] [address]- 3847 May, [facility] [place] [facility] [address] [id number] [place] [address]- 2106 May, [facility] [place] [facility] [address] [id number] [place] [address]204 May, [facility] [place] [facility] [address] [facility] [id number] [place] [address] May, [facility] [place] [facility] [address] [facility] [id number] [place] [address]- 6073 May, [facility] [place] [facility] [address] [id number] [place] [address]- 8641 May, [facility] [place] [facility] [address] [id number] [place] [address]- 7895 Mar, [facility] [place] [facility] [address] [facility] [id number] [place] [address]- 9478 Mar, [facility] [place] [facility] [address] [id number] [place] [address]- 2610 Mar, [facility] [place] [facility] [address] [id number] [place] [address]- 4349 Mar, [facility] [place] [facility] [address] [id number] [place] [address]- 9822 Mar, [facility] [place] [facility] [address] [id number] [place] [address]- 6126 Mar, [facility] [place] [facility] [address] [id number], [place] [address]- 9226 Feb, [facility] [place] [facility] [address] [id number], [place] [address]- 4878 Feb, [facility] [place] [facility] [address] [id number], [place] [address]- 2922 Jan, [facility] [place] [facility] [address] [id number], [place] [address]- 2539 Jan, [facility] [place] [facility] [address] [id number], [place] [address]- 8070 Jan, [facility] [place] [facility] [address] [id number], [place] [address]- 0244 Jan, [facility] [place] [facility] [address] [facility] [id number], [place] [address]- 3978 Jan, [facility] [place] [facility] [address] [facility] [id number], [place] [address]- 2747 Jan, [facility] [place] [facility] [address] [id number] [place] [address]- 9388 Jan, [facility] [address] [id number] [place] [address]- 6644 Jan, [facility] [place] [facility] [address] [id number] [place] [address]- 8612 Jan, [facility] [place] [facility] [address] [id number] [place] [address]- 5546 Jan, [facility] [place] [facility] [address] [id number] [place] [address]- 6299 Dec, [facility] [place] [facility] [address] [id number] [place] [address]- 4264 Nov, [facility] [place] [facility] [address] [id number] [place] [address]- 7649 Nov, [facility] [place] [facility] [address] [id number] [place] [address]- 0354 Nov, [facility] [place] [facility] [address] [id number] [place] [address]- 6223 Oct, [facility] [place] [facility] [address] [id number] [place] [address]- 5897 Oct, [facility] [place] [facility] [address] [id number] [place] [address]- 9727 August, [facility] [place] [facility] [address] [id number] [place] [address]- 6897 Apr, [facility] [place] [facility] [address] [id number] [place] [address]- 1065 Apr, [facility] [place] [facility] [address] [id number] [place] [address]- 0661 Feb, [facility] [place] [facility] [address] [id number] [place] [address]- 8673 Feb, [facility] [place] [facility] [address] [id number] [place] [address]- 5008 Dec, [facility] [address] [facility] [id number], [place] [address]- 5346 Dec, [facility] [address] [facility] [id number], [place] [address]- 8766 Oct, [facility] [address] [facility] [id number], [place] [address]- 2246 Oct, [facility] [address] [facility] [id number], [place] [address]- 5866 Oct, [facility] [address] [facility] [id number], [place] [address]- 8841 Jul, IMMUNIZATIONS No Known Immunizations SOCIAL HISTORY [...] illness , last one in [facility] 4 years ago
--- OUTSIDE RECORDS SUMMARY | 2018-09-02 14:28 | XMS REPORT ---
Author Author EDWINUMESH CASIANO [facility] Address [address] [place] [address] Care Team Providers Care Admitting Clerk Name Role Phone UMESH PINEDA Unavailable PROBLEMS Type Condition ICD9-CM Code [id number] Code Onset Dates Condition Status SNOMED Code Problem Other seasonal allergic rhinitis J30.2 Active 395326928 Problem Gastroesophageal reflux disease, esophagitis presence not specified K21.9 Active 102198640 Problem Tobacco abuse Z72.0 Active 880583408 Problem Seasonal allergic rhinitis due to pollen J30.1 Active 35425456 Problem History of lupus Z87.39 Active 071959475 Problem COPD exacerbation J44.1 Active 129183002 Problem OAB (overactive bladder) N32.81 Active 880052982 Problem Morbid obesity due to excess calories E66.01 Active 004175584 Problem Dyslipidemia E78.5 Active 300129281 Problem Migraine without aura and without status migrainosus, not intractable G43.009 Active 356608132 Problem Hypothyroidism (acquired) E03.9 Active 990302780 Problem Essential hypertension I10 Active 34167482 Problem Type 2 diabetes mellitus without complication, without long-term current use of insulin E11.9 Active 804384726 Problem Gastroesophageal reflux disease without esophagitis K21.9 Active 426100528 Problem Chronic pain syndrome G89.4 Active 960223626 Problem Paranoid schizophrenia F20.0 Active 80759212 Problem Primary insomnia F51.01 Active 0201359 Problem DM neuro manif type II E11.49 Active 03688461 Problem Depression with anxiety F41.8 Active 172398807 Problem Seasonal allergic rhinitis due to other allergic trigger J30.89 Active 612267124 Problem Menopausal syndrome (hot flashes) N95.1 Active 098597875 Problem Chronic obstructive pulmonary disease, unspecified COPD type J44.9 Active 60363703 Problem Schizoaffective disorder, depressive type F25.1 Active 06482833 Problem Other allergic rhinitis J30.89 Active 345810678 ALLERGIES No Information ENCOUNTERS Encounter Location Date Diagnosis [facility] [place] [facility] [address] [address] Nov, [facility] [place] [facility] [address] [address] Jun, Seasonal allergic rhinitis due to pollen J30.1 and Hypothyroidism (acquired) E03.9 [facility] [address] [address] Jun, Shortness of breath at rest R06.02 ; COPD exacerbation J44.1 and BMI 45.0-49.9, adult Z68.42 [facility] [place] [facility] [address] [address] Jun, [facility] [place] [facility] [address] [address]- [address] Jun, Paranoid schizophrenia F20.0 ; Depression with anxiety F41.8 and BMI 45.0-49.9, adult Z68.42 [facility] [place] [facility] [address] [address]- [address] 20 Jun, 2017 Schizoaffective disorder, depressive type F25.1 [facility] [address] [id number] 13 Jun, 2017 Dental caries K02.9 [facility] [facility] [address] [address]- [address] 12 Jun, 2017 Paranoid schizophrenia F20.0 [facility] [place] [facility] [address] [address]- [address] May, Migraine without aura and without status migrainosus, not intractable G43.009 ; DM neuro manif type II E11.49 and Type 2 diabetes mellitus without complication, without long-term current use of insulin E11.9 [facility] [facility] [address] [address] May, Migraine without aura and without status migrainosus, not intractable G43.009 [place] [address] [place] [address] 90298- 8216 May, Depression with anxiety F41.8 [facility] [address] [place] [id number] [place] [id number] May, [facility] [facility] [address] [address]- [address] May, [place] [address] [address]- [address] May, [place] [address] [address]- [address] May, Hypothyroidism (acquired) E03.9 [place] [address] [address]- 5818 May, Paranoid schizophrenia F20.0 [place] [address] [address]- 2488 May, Type 2 diabetes mellitus without complication, [...] N32.81 and Controlled substance agreement signed Z79.899 [place] [address] [place] [id number] [place] [address] 55414- 2865 May, Controlled substance agreement signed Z79.899 [place] [address] [place] [id number] [place] [address] 82574- 2523 Apr, [facility] [address] [id number] Apr, Dental examination Z01.20 [facility] [place] [facility] [address] [place] [address] 94647- 2635 Apr, Paranoid schizophrenia F20.0 [facility] [place] [facility] [address] [place] [id number] [place] [address] 37932- 2558 Apr, Hypertension, unspecified type I10 [facility] [facility] [address] [place] [id number] [place] [address] 09417- 2448 Apr, Paranoid schizophrenia F20.0 [facility] [place] [facility] [address] [place] [id number] [place] [address] 16204- 3881 Apr, [facility] [facility] [address] [place] [id number] [place] [address] 65197- 2143 Apr, Tobacco abuse Z72.0 [facility] [place] [facility] [address] [place] [id number] [place] [address] 19954- 7248 Apr, [facility] [facility] [address] [place] [id number] [place] [address] 59310- 0430 Mar, [facility] [facility] [address] [place] [id number] [place] [address] 07397- 5495 Mar, Paranoid schizophrenia F20.0 and BMI 45.0-49.9, adult Z68.42 [facility] [facility] [address] [place] [id number] [place] [address] 37014- 5287 Mar, Schizoaffective disorder, depressive type F25.1 [facility] [facility] [address] [place] [id number] [place] [address] 67943- 2878 14 Mar, 2017 [facility] [facility] [address] [place] [id number] [place] [address] 44915- 0595 Mar, Hypothyroidism, unspecified type E03.9 [facility] [facility] [address] [place] [address] 70713- 5705 Mar, Schizoaffective disorder, depressive type F25.1 [facility] [address] [place] [id number] [place] [address] 58636 -9552 Feb, Gastroenteritis K52.9 and BMI 45.0-49.9, adult Z68.42 [place] [address] [place] [id number] [place] [address] 06436- 4616 Feb, [facility] [facility] [address] [place] [id number] [place] [address] 52012- 5790 Feb, [facility] [place] [facility] [address] 9[address]58- 4888 Feb, [facility] [facility] [address] 42205- 7218 Feb, [place] [address] 53542- 6907 Feb, Paranoid schizophrenia F20.0 [place] [address] 02343- 0494 Feb, Gastroesophageal reflux disease without esophagitis K21.9 ; Other seasonal allergic rhinitis J30.2 ; Other allergic rhinitis J30.89 ; Tobacco abuse Z72.0 and BMI 40.0-44.9, adult Z68.41 [place] [address] [address]- 1379 Feb, Onychomycosis B35.1 ; Callus of foot L84 and DM neuro manif type II E11.49 [place] [address] [place] [id number] [place] [address] 61761- 4091 Jan, Chronic allergic rhinitis J30.9 [place] [address] [place] [id number] [place] [address] 57105- 4937 Jan, [place] [address] 85049- 5384 Jan, Schizoaffective disorder, depressive type F25.1 [facility] [facility] [address] [place] [id number] [place] [address] 37237- 6556 Jan, [facility] [address] [place] [id number] [place] [address] 31361 -5167 Jan, Sore throat J02.9 and Seasonal allergic rhinitis due to other allergic trigger J30.89 [facility] [facility] [address] [place] [id number] [place] [address] 64653- 0325 Jan, [facility] [facility] [address] [place] [id number] [place] [address] 57147- 8296 Jan, [facility] [address] [place] [id number] [place] [address] 05699 -4383 Jan, Chronic allergic rhinitis J30.9 [facility] [facility] [address] [place] [id number] [place] [address] 97871- 0021 Dec, Paranoid schizophrenia F20.0 ; Primary insomnia F51.01 and Schizoaffective disorder, depressive type F25.1 [place] [address] [place] [id number] [place] [address] 32276- 1741 Dec, Chronic pain syndrome G89.4 ; Cervicalgia of occipito- atlanto-axial region M54.2 ; Menopausal syndrome (hot flashes) N95.1 and Encounter for immunization Z23 [facility] [address] [place] [id number] [place] [address] 24142- 5988 14 Dec, 2016 [facility] [facility] [address] [place] [id number] [place] [address] 37768- 0734 13 Dec, 2016 [facility] [facility] [address] [place] [id number] [place] [address] 91196- 1218 08 Dec, 2016 Paranoid schizophrenia F20.0 [facility] [facility] [address] [place] [id number] [place] [address] 28724- 2097 Dec, Schizoaffective disorder, depressive type F25.1 [facility] [facility] [address] [place] [id number] [place] [address] 77183- 4530 Nov, Hypothyroidism, unspecified type E03.9 [facility] [address] [place] [id number] [place] [address] 06503 -8287 Nov, Acute seasonal allergic rhinitis due to other allergen J30.89 [place] [address] [place] [id number] [place] [address] 47573- 0991 Nov, [place] [address] [place] [id number] [place] [address] 90131- 1719 Nov, Hypothyroidism, unspecified type E03.9 and Other elevated white blood cell (WBC) count D72.828 [place] [address] [place] [id number] [place] [address] 68812- 1490 Nov, Schizoaffective disorder, depressive type F25.1 [place] [address] [place] [id number] [place] [address] 59610- 7004 Nov, Paranoid schizophrenia F20.0 [place] [address] [place] [id number] [place] [address] 01545- 2808 Nov, Type 2 diabetes mellitus without complication, without long- term current use of insulin E11.9 ; Morbid obesity due to excess calories E66.01 and Chronic pain syndrome G89.4 [place] [address] [place] [id number] [place] [address] 75027- 3047 Oct, Paranoid schizophrenia F20.0 [place] [address] [place] [id number] [place] [address] 84766- 1940 Oct, [place] [address] [place] [id number] [place] [address] 44464- 3827 Oct, Schizoaffective disorder, depressive type F25.1 [place] [address] [place] [id number] [place] [address] 87314- 6014 Oct, Hypothyroidism, unspecified type E03.9 and Other elevated white blood cell (WBC) count D72.828 [place] [address] [place] [address] [place] [address] 21618- 8361 Oct, Morbid obesity due to excess calories E66.01 ; Chronic obstructive pulmonary disease, unspecified COPD type J44.9 ; History of lupus Z87.39 ; Hypothyroidism, unspecified type E03.9 ; Gastroesophageal reflux disease without esophagitis K21.9 ; Primary insomnia F51.01 and Chronic pain syndrome G89.4 [facility] [address] [place] [address] 56441- 4627 30 Sep, 2016 [facility] [facility] [address] [place] [id number] [place] [address] 73924- 8791 Sep, [facility] [address] [place] [id number] [place] [address] 52760- 8029 Sep, [facility] [facility] [address] [place] [id number] [place] [address] 34492- 6547 Sep, Paranoid schizophrenia F20.0 [facility] [address] [place] [id number] [place] [address] 48846- 5338 Sep, [facility] [facility] [address] [place] [id number] [place] [address] 03975- 0983 Sep, Paranoid schizophrenia F20.0 [facility] [facility] [address] [place] [id number] [place] [address] 28765- 9947 Sep, [facility] [facility] [address] [place] [id number] [place] [address] 86088- 8483 August, Paranoid schizophrenia F20.0 [facility] [address] [place] [id number] [place] [address] 74651- 3206 Jul, [facility] [facility] [address] [place] [address] 57182- 5577 Jul, Type 2 diabetes mellitus without complication, without long- term current use of insulin E11.9 ; Morbid obesity due to excess calories E66.01 ; Depression with anxiety F41.8 ; Hypothyroidism, unspecified type E03.9 ; Seasonal allergic rhinitis due to other allergic trigger J30.89 ; Pain, dental K08.89 and Gastroesophageal reflux disease without esophagitis K21.9 [facility] [address] [id number] Jul, Dental examination Z01.20 [facility] [address] [place] [id number] [place] [address] 82878- 6138 07 Jul, 2016 Paranoid schizophrenia F20.0 [place] [address] [place] [address] 60966- 7953 13 Jun, 2016 Paranoid schizophrenia F20.0 and Depression with anxiety F41.8 [place] [address] [place] [id number] [place] [address] 88305- 0407 10 Jun, 2016 Paranoid schizophrenia F20.0 and Depression with anxiety F41.8 [place] [address] [place] [id number] [place] [address] 94804- 0388 09 Jun, 2016 [place] [address] [place] [id number] [place] [address] 37598- 6317 Jun, [facility] [place] [address] [place] [id number] [place] [address] 22385 -1895 Jun, Seasonal allergic rhinitis due to other allergic trigger J30.89 [facility] [place] [id number] [place] [address] 45853 -1591 May, Sore throat J02.9 ; Other viral agents as the cause of diseases classified elsewhere B97.89 and Acute upper respiratory infection, unspecified J06.9 [place] [address] [place] [address] [place] [address] 11763- 7508 08 May, 2016 Paranoid schizophrenia F20.0 and Depression with anxiety F41.8 [place] [address] [place] [id number] [place] [address] 39885- 7895 Apr, Other seasonal allergic rhinitis J30.2 [place] [address] [place] [id number] [place] [address] 71385- 0550 Apr, Paranoid schizophrenia F20.0 and Depression with anxiety F41.[address] [facility] [place] [id number] [place] [address] 47653 -5740 Apr, Bronchitis J40 and Sore throat J02.9 [place] [address] [place] [id number] [place] [address] 76892- 1290 Apr, Type 2 diabetes mellitus without complication, without long- term current use of insulin E11.[address] [facility] [address] [address] Apr, Bronchitis J40 [facility] [facility] [address] [place] [address] 02116- 6662 Apr, [facility] [facility] [address] [place] [id number] [place] [address] 48500- 0989 Apr, [facility] [facility] [address] [place] [id number] [place] [address] 32380- 8393 Mar, Type 2 diabetes mellitus without complication, [...] R60.9 and Other seasonal allergic rhinitis J30.2 [place] [address] [place] [id number] [place] [address] 45349- 0521 Mar, Paranoid schizophrenia F20.0 and Depression with anxiety F41.8 [facility] [facility] [address] [place] [address] 72049- 7829 30 Feb, 2016 [place] [address] [place] [address] 44370- 4502 Feb, [place] [address] [place] [id number] [place] [address] 71886- 2782 Feb, [place] [address] [place] [id number] [place] [address] 29558- 7779 Feb, [place] [address] [place] [id number] [place] [address] 38999- 6731 Feb, Type 2 diabetes mellitus without complication, without long- term current use of insulin E11.9 ; ARIAS on CPAP G47.33 and Preoperative evaluation to rule out surgical contraindication Z01.818 [facility] [facility] [address] [facility] [id number] [address]- 4903 Feb, Paranoid schizophrenia F20.0 and Depression with anxiety F41.8 [facility] [facility] [address] [facility] [id number] [place] [address]- 4477 Jan, [facility] [facility] [address] [facility] [id number] [place] [address]- 7203 Jan, Paranoid schizophrenia F20.0 and Depression with anxiety F41.8 [facility] [facility] [address] [facility] [id number] [place] [address]- 0589 17 Jan, 2016 [facility] [place] [facility] [address] [facility] [id number] [place] [address], [place] [address]- 4542 14 Jan, 2016 Muscle strain T14.8 [facility] [facility] [address] [facility] [id number], [place] [address]- 7741 10 Jan, 2016 Paranoid schizophrenia F20.0 [facility] [facility] [address] [facility] [id number], [place] [address]- 6146 07 Jan, 2016 [facility] [facility] [address] [facility] [id number] [place] [address] 08923- 8108 05 Jan, 2016 Paranoid schizophrenia F20.0 and Depression with anxiety F41.8 [facility] [facility] [address] [facility] [id number], [place] [address]- 1224 Jan, [facility] [facility] [address] [facility] [id number], [place] [address]- 5158 Jan, [facility] [address] [facility] [id number], [place] [address]- 0296 28 Dec, 2015 [facility] [facility] [address] [facility] [id number], [place] [address]- 7124 23 Sep, 2015 Paranoid schizophrenia F20.0 [facility] [address] [facility] [id number], [place] [address]- 3836 16 Sep, 2015 Paranoid schizophrenia F20.0 and Depression with anxiety F41.8 [facility] [facility] [address] [place] [id number] [address]- 5136 Nov, [facility] [facility] [address] [place] [id number] [place] [address] 29899- 4994 Nov, Paranoid schizophrenia F20.0 [facility] [facility] [address] [place] [id number] [place] [address] 41250- 7324 Nov, Paranoid schizophrenia F20.0 and Depression with anxiety F41.8 [facility] [facility] [address] [place] [id number] [place] [address] 15778- 0795 Nov, Type 2 diabetes mellitus without complication, without long- term current use of insulin E11.9 ; Paranoid schizophrenia F20.0 ; Chronic obstructive pulmonary disease, unspecified COPD type J44.9 ; Morbid obesity due to excess calories E66.01 and Parkinsonian tremor G20 [facility] [facility] [address] [place] [id number] [place] [address] 20608- 4951 Nov, [facility] [place] [facility] [address] [place] [id number] [place] [address] 50954- 0529 Oct, Paranoid schizophrenia F20.0 [place] [address] [place] [id number] [place] [address] 45143- 4497 Oct, Paranoid schizophrenia F20.0 [facility] [facility] [address] [place] [id number] [place] [address] 94708- 8373 Oct, Paranoid schizophrenia F20.0 and Depression with anxiety F41.8 [facility] [facility] [address] [address]- 8464 Oct, [facility] [place] [facility] [address] [place] [id number] [place] [address] 08471- 6242 Oct, Paranoid schizophrenia F20.0 and Depression with anxiety F41.8 [facility] [place] [facility] [address] [place] [address] 42790- 5845 06 Oct, 2015 Nasal sore J34.89 [facility] [place] [facility] [address] [place] [id number] [place] [address] 41842- 1106 Oct, Type 2 diabetes mellitus without complication, without long- term current use of insulin E11.9 ; Depression with anxiety F41.8 ; Hypothyroidism, unspecified type E03.9 and History of lupus Z87.39 [facility] [place] [facility] [address] [place] [id number] [place] [address] 67201- 3313 Oct, [facility] [place] [facility] [address] [place] [id number] [place] [address] 002908- 9868 Oct, Type 2 diabetes mellitus without complication, [...] edema R60.9 and History of lupus Z87.39 [place] [address] [place] [id number] [place] [address] 56670- 8679 Feb, [facility] [place] [facility] [address] [place] [id number] [place] [address] 10156- 0574 Jan, [facility] [place] [facility] [address] [place] [id number] [place] [address] 28762- 8767 Jan, [facility] [place] [facility] [address] [place] [id number] [place] [address] 68305- 1087 Jan, [facility] [place] [facility] [address] [place] [id number] [place] [address] 281113- 4138 Dec, [facility] [place] [facility] [address] [place] [id number] [place] [address] 383690- 6473 Nov, [facility] [place] [facility] [address] [place] [id number] [place] [address] 379164- 2443 Nov, [facility] [place] [facility] [address] [place] [id number] [place] [address] 10760- 8926 Oct, [facility] [address] [place] [id number] [place] [address]- 8562 Oct, [facility] [address] [facility] [id number] [place] [address]- 9088 Oct, [facility] [id number] [place] [address]- 6296 Sep, Allergic rhinitis 477.9 [facility] [address] [place] [id number] [place] [address] 84963- 7512 Sep, Rhinitis, allergic 477.9 [facility] [address] [place] [id number] [place] [address], [place] [address]- 2843 Sep, Rhinitis, allergic 477.9 [facility] [address] [place] [id number] [place] [address]- 1822 Sep, [facility] [id number] [place] [address]- 08[address] August, [facility] [address] [id number] [place] [address] August, [facility] [id number] [place] [address] August, [facility] [id number] [place] [address] 28 Jul, 2014 [facility] [place] [facility] [address] [id number] [place] [address] 14 Jul, 2014 [facility] [place] [facility] [address] [id number] [address] 13 Jul, 2014 [facility] [place] [facility] [id number] [place] [address] 16 Jun, 2014 [facility] [place] [facility] [address] [facility] [id number] [address] 16 Jun, 2014 [facility] [place] [facility] [id number] [address] Jun, [facility] [place] [facility] [address] [id number] [place] [address] Jun, [facility] [place] [facility] [address] [id number] [place] [address] Jun, [facility] [place] [facility] [address] [id number] [place] [address] Jun, [facility] [place] [facility] [address] [id number] [place] [address] Jun, [facility] [place] [facility] [address] [id number] [place] [address] Jun, [facility] [place] [facility] [address] [id number] [place] [address] May, [facility] [place] [facility] [address] [id number] [place] [address] May, 2014 [facility] [place] [facility] [address] [id number] [place] [address] May, [facility] [place] [facility] [address] [id number] [place] [address] May, [facility] [place] [facility] [address] [id number] [place] [address] Apr, [facility] [facility] [address] [id number] [place] [address] Mar, [facility] [place] [facility] [address] [id number] [place] [address] Mar, [facility] [place] [facility] [address] [id number] [place] [address] Mar, [facility] [place] [facility] [address] [id number] [place] [address] Mar, [facility] [place] [facility] [address] [id number] [place] [address] Mar, [facility] [place] [facility] [address] [id number] [place] [address] Mar, [facility] [place] [facility] [address] [id number] [place] [address] Mar, [facility] [place] [facility] [address] [id number] [place] [address] Mar, [facility] [place] [facility] [address] [id number] [place] [address] 1410 Mar, [facility] [place] [facility] [address] [id number] [place] [address] Feb, [facility] [place] [facility] [address] [id number] [place] [address] Feb, [facility] [place] [facility] [address] [id number] [place] [address] 12[address] Feb, [facility] [place] [facility] [address] [id number] [place] [address] Feb, [facility] [place] [facility] [address] [id number] [place] [address] Feb, [facility] [place] [facility] [address] [id number] [place] [address] Feb, [facility] [place] [facility] [address] [id number] [place] [address]- 3352 Feb, [facility] [place] [facility] [address] [id number] [place] [address] 2765 Feb, [facility] [place] [facility] [address] [id number] [place] [address] 2501 Jan, [facility] [place] [facility] [address] [id number] [place] [address] Jan, [facility] [place] [facility] [address] [id number] [place] [address] Jan, [facility] [place] [facility] [address] [id number] [place] [address] Jan, [facility] [place] [facility] [address] [id number] [place] [address] 15 Jan, 2014 [facility] [place] [facility] [address] [id number] [place] [address] 15 Jan, 2014 [facility] [place] [address] [id number] [place] [address]- 3943 14 Jan, 2014 [facility] [place] [address] [id number] [place] [address]- 3071 14 Jan, 2014 [facility] [place] [facility] [address] [id number] [place] [address]- 8392 14 Jan, 2014 [facility] [place] [address] [id number] [place] [address]- 6399 14 Jan, 2014 [facility] [place] [address] [id number] [place] [address]152 18 Dec, 2013 [facility] [place] [facility] [address] [id number] [place] [address] 8617 18 Dec, 2013 [facility] [place] [address] [id number] [place] [address]- 1338 10 Dec, 2013 [facility] [place] [address] [id number] [place] [address]93 10 Dec, 2013 [facility] [place] [facility] [address] [id number] [place] [address] 7311 Nov, [facility] [address] [id number] [address] Nov, [facility] [address] [id number] [place] [address]- 4075 Nov, [facility] [place] [address] [id number] [place] [address]- 0221 Nov, [facility] [address] [id number] [address] Nov, [facility] [address] [id number], [place] [address] Oct, [facility] [place] [facility] [address] [id number] [place] [address]- 3368 Oct, [facility] [place] [facility] [address] [id number] [place] [address] 4364 Oct, [facility] [place] [facility] [address] [id number] [place] [address]- 7842 Oct, [facility] [place] [facility] [address] [id number] [place] [address] Sep, [facility] [place] [facility] [address] [id number] [place] [address] Sep, [facility] [place] [address] [id number] [place] [address]- [address] Sep, [facility] [address] [id number] [place] [address]- 9132 Sep, [facility] [address] [id number] [place] [address]- [address]100 Sep, [facility] [address] [id number] [place] [address] Sep, [facility] [address] [id number] [place] [address]161 Sep, [facility] [address] [id number] [place] [address]- 6499 Sep, [facility] [address] [id number] [place] [address]267 August, [facility] [address] [id number] [place] [address] 7844 August, [facility] [address] [id number] [place] [address]- 4536 August, [facility] [address] [id number] [place] [address]- 8444 August, [facility] [address] [id number] [place] [address]- 8398 August, [facility] [address] [id number] [place] [address]- 5082 August, [facility] [address] [id number] [place] [address]- 8599 August, [facility] [address] [id number] [place] [address]- 6680 Jul, [facility] [address] [id number] [place] [address] Jul, [facility] [address] [id number] [place] [address]- 4[address] Jul, [facility] [address] [id number] [place] [address]- 1366 Jul, [facility] [address] [id number] [place] [address]- 5099 Jul, [facility] [address] [id number] [place] [address]- 7295 Jul, [facility] [address] [id number] [place] [address]- 8084 Jul, [facility] [address] [id number] [place] [address]- 3971 Jul, [facility] [address] [id number] [place] [address]- 9474 Jul, [facility] [address] [id number] [place] [address]- 0055 Jul, [facility] [address] [id number] [place] [address]- 3755 Jul, [facility] [address] [id number] [place] [address]- 8899 Jul, [facility] [address] [id number] [place] [address]- 2659 Jun, [facility] [address] [id number] [place] [address]- 4431 Jun, [facility] [address] [id number] [place] [address]- 8601 Jun, [facility] [address] [facility] [id number] [place] [address]- 5055 Jun, [facility] [address] [id number] [place] [address]- 3921 Jun, [facility] [address] [id number] [place] [address]- 6553 May, [facility] [address] [id number] [place] [address]- 4048 May, [facility] [address] [facility] [id number] [place] [address]- 5682 May, [facility] [address] [id number] [place] [address]- 6984 May, [facility] [address] [id number] [place] [address]- 1758 May, [facility] [address] [facility] [id number] [place] [address]- 6783 May, [facility] [address] [facility] [id number] [place] [address]- 1367 May, [facility] [address] [facility] [id number] [place] [address]- 1617 May, [facility] [address] [facility] [id number] [place] [address]- 6984 Mar, [facility] [address] [facility] [id number] [place] [address]- 6109 Mar, [facility] [address] [facility] [id number] [place] [address]- 6771 Mar, [facility] [address] [id number] [place] [address]- 5058 Mar, [facility] [address] [id number] [place] [address]- 2858 Mar, [facility] [address] [id number] [place] [address]- 9469 Mar, [facility] [address] [id number] [place] [address]- 9239 Feb, [facility] [address] [id number] [place] [address]- 5586 Feb, [facility] [address] [id number] [place] [address]- 5955 Jan, [facility] [address] [id number] [place] [address]- 6789 Jan, [facility] [address] [id number] [place] [address]- 5033 Jan, [facility] [address] [id number] [place] [address]- 9242 Jan, [facility] [address] [id number] [place] [address]- 2795 Jan, [facility] [address] [id number] [place] [address]- 1025 Jan, [facility] [address] [id number] [place] [address]- 3278 Jan, [facility] [address] [id number] [place] [address] Jan, [facility] [address] [id number] [place] [address]- 6776 Jan, [facility] [address] [id number] [place] [address]- 0295 Jan, [facility] [address] [id number] [place] [address]- 2153 Dec, [facility] [address] [id number] [place] [address]- 1588 Nov, [facility] [address] [id number] [place] [address]- 2356 Nov, [facility] [address] [id number] [place] [address]- 2434 Nov, [facility] [address] [id number] [place] [address]- 9987 Oct, [facility] [address] [id number] [place] [address]- 0039 Oct, [facility] [address] [id number] [place] [address]- 5097 August, [facility] [address] [id number] [place] [address]- 3046 Apr, [facility] [address] [id number] [place] [address]- 3351 Apr, [facility] [address] [id number] [place] [address]- 3486 Feb, [facility] [address] [id number] [place] [address]- 4295 Feb, [facility] [address] [id number] [place] [address]- 1618 Dec, [facility] [facility] [address] [id number] [place] [address]- 5678 Dec, [facility] [address] [id number] [place] [address]- 2352 Oct, [facility] [address] [id number] [place] [address]- 6539 Oct, [facility] [facility] [address] [id number] [place] [address]- 1014 Oct, [facility] [address] [id number] [place] [id number] [address] Jul, IMMUNIZATIONS No Known Immunizations SOCIAL HISTORY Never Assessed REASON FOR VISIT phone call PLAN OF CARE VITAL SIGNS MEDICATIONS Medication Instructions Dosage Frequency Start Date End Date Duration Status Haloperidol 5 mg Orally Once a day as needed 1 tablet Oct, 30 day(s) Active RESULTS No Results PROCEDURES [...]
--- OUTSIDE RECORDS SUMMARY | 2018-09-02 14:29 | XMS REPORT ---
Author Author UMESH PINEDA Organization [facility] Address [address] [place] [address] Care Team Providers Care Blocker Polishing Name Role Phone UMESH PINEDA Unavailable PROBLEMS Type Condition ICD9-CM Code [id number] Code Onset Dates Condition Status SNOMED Code Problem History of lupus Z87.39 Active 345696053 Problem ARIAS on CPAP G47.33 Active 31104076 Problem OAB (overactive bladder) N32.81 Active 805500042 Problem Menopausal syndrome (hot flashes) N95.1 Active 000304449 Problem Other elevated white blood cell (WBC) count D72.828 Active 082927176 Problem Seasonal allergic rhinitis due to other allergic trigger J30.89 Active 354772267 Problem Gastroesophageal reflux disease without esophagitis K21.9 Active 831202345 Problem Primary insomnia F51.01 Active 3549510 Problem Schizoaffective disorder, depressive type F25.1 Active 21991951 Problem Morbid obesity due to excess calories E66.01 Active 203610195 Problem Depression with anxiety F41.8 Active 353731610 Problem Chronic obstructive pulmonary disease, unspecified COPD type J44.9 Active 62468990 Problem Peripheral edema R60.9 Active 115706375 Problem Paranoid schizophrenia F20.0 Active 32781964 Problem Chronic pain syndrome G89.4 Active 863616203 Problem Parkinsonian tremor G20 Active 976117410 Problem Hypothyroidism, unspecified type E03.9 Active 26779957 Problem Type 2 diabetes mellitus without complication, without long-term current use of insulin E11.9 Active 793894496 ALLERGIES Substance Reaction Event Type Date Status Sulfamethoxazole-Trimethoprim Unknown Drug Allergy August, Active Penicillin V Potassium Unknown Drug Allergy August, Active SOCIAL HISTORY Never Assessed PLAN OF CARE VITAL SIGNS MEDICATIONS Medication Instructions Dosage Frequency Start Date End Date Duration Status Breo Ellipta 100-25 mcg/dose Inhalation Once a day inhale 1 puff by inhalation route once daily at the same time each day 24h Jun,Mar 90 days Active Invega Sustenna 234 MG/1.5ML Intramuscular Once a month, on the 10th of every month 1.5 ml Active Norvasc 10 mg Orally Once a day 1 tablet 24h 30 Active Tizanidine HCl 4 MG Orally 3 times a day 1 1/2 tablets 8h Active Sertraline HCl 100 MG Orally Once a day 1 tablet 24h Active Levothyroxine Sodium 150 MCG Orally Once a day 1 tablet 24h 30 Active Metformin HCl 1000 MG Orally Twice a day 1 tablet with meals 12h Mar, 90 days Active Clonazepam 0.25 MG Orally Twice a day 1 tablet on the tongue and allow to dissolve 12h Jun, 05 days Active Pravastatin Sodium 10 mg Orally Once a day 1 tablet 24h 90 days Active HydrOXYzine HCl 25 MG Orally every 8 hrs 1 tablet as needed 8h 30 day (s) Active Ibuprofen 800 MG Orally Three times a day 1 tablet as needed 8h Jul, Oct, 90 days Active Vistaril 25MG Orally every 8 hrs 1 capsule as needed 8h 30 Active Myrbetriq 50 MG Orally Once a day 1 tablet 24h 90 days Active Premarin 0.625 MG/GM insert 0.5 gram by vaginal route twice weekly Active Breo Ellipta 100-25 MCG/INH Inhalation Once a day 1 puff 24h Active Cetirizine HCl 10 mg Orally Once a day 1 tablet 24h Jul, Oct, 90 days Active Ventolin HFA 108 (90 Base) MCG/ACT Inhalation every 4 hrs 2 puffs as needed 4h Feb, 90 days Active Suvorexant 10 mg Orally Once a day 1 tablet at bedtime as needed 24h Mar Active Nexium 40 mg Orally Once a day 1 capsule 24h 90 days Active Januvia 50MG TAKE ONE TABLET BY MOUTH ONCE DAILY 90 Active Spironolactone 50MG Orally Once a day 1 tablet 24h 30 Active Restasis 0.05 % instill 1 drop into affected eye(s) by ophthalmic route 2 times per day Oct, Active RESULTS No Results PROCEDURES Procedure Date Ordered Result Body Site INVEGA (PT'S OWN) September 03, 2016 THER/PROPH/DIAG INJ, SC/IM September 03, 2016 IMMUNIZATIONS Vaccine Route Administration Date Status INVEGA (PT'S OWN) IM Intramuscular September 03, 2016 Administered MEDICAL (GENERAL) HISTORY Type Description [...]
--- OUTSIDE RECORDS SUMMARY | 2018-09-02 14:29 | XMS REPORT ---
Author Author STRICKLANDSOTO Carias Organization [facility] Address [address] [place] [address] Care Team Providers Care Stick Welder Name Role Phone STRICKLANDSOTO Carias Unavailable PROBLEMS Type Condition ICD9-CM Code JRV37-JN Code Onset Dates Condition Status SNOMED Code Problem Other seasonal allergic rhinitis J30.2 Active 908767138 Problem Gastroesophageal reflux disease, esophagitis presence not specified K21.9 Active 459338900 Problem Tobacco abuse Z72.0 Active 118525414 Problem Seasonal allergic rhinitis due to pollen J30.1 Active 03299494 Problem History of lupus Z87.39 Active 212037110 Problem COPD exacerbation J44.1 Active 096767858 Problem OAB (overactive bladder) N32.81 Active 824293854 Problem Morbid obesity due to excess calories E66.01 Active 133668348 Problem Dyslipidemia E78.5 Active 265080657 Problem Migraine without aura and without status migrainosus, not intractable G43.009 Active 567901943 Problem Hypothyroidism (acquired) E03.9 Active 257061051 Problem Essential hypertension I10 Active 59505396 Problem Type 2 diabetes mellitus without complication, without long-term current use of insulin E11.9 Active 914816820 Problem Gastroesophageal reflux disease without esophagitis K21.9 Active 520881730 Problem Chronic pain syndrome G89.4 Active 540744740 Problem Paranoid schizophrenia F20.0 Active 39725354 Problem Primary insomnia F51.01 Active 8784075 Problem DM neuro manif type II E11.49 Active 88673503 Problem Depression with anxiety F41.8 Active 995730898 Problem Seasonal allergic rhinitis due to other allergic trigger J30.89 Active 082275385 Problem Menopausal syndrome (hot flashes) N95.1 Active 158498746 Problem Chronic obstructive pulmonary disease, unspecified COPD type J44.9 Active 98826681 Problem Schizoaffective disorder, depressive type F25.1 Active 53034944 Problem Other allergic rhinitis J30.89 Active 468452530 ALLERGIES No Information ENCOUNTERS Encounter Location Date Diagnosis [facility] [id number] [address] Nov, [facility] [id number] [place] [address] 79357- 6063 Oct, [facility] [id number] [place] [address] 00916- 8232 Sep, Hypothyroidism (acquired) E03.9 [facility] [id number] [place] [address] 14941- 6974 Sep, [facility] [id number] [place] [address] 05771- 6348 August, Schizoaffective disorder, depressive type F25.1 [facility] [id number] [place] [address] 40008- 1913 August, [facility] [id number] [place] [address] 24422- 4893 August, [facility] [id number] [place] [address] 16201- 6665 August, [facility] [id number] [place] [address] 12197- 0334 August, Paranoid schizophrenia F20.0 [facility] [id number] [place] [address] 20744- 8089 August, History of lupus Z87.39 and Chronic pain syndrome G89.4 [facility] [id number] [place] [address] 46323- 5620 August, [facility] [id number] [place] [address] 47178 -5250 August, Seasonal allergic rhinitis, unspecified trigger J30.2 and BMI 45.0-49.9, adult Z68.42 [facility] [id number] [place] [address] 83292- 2556 Jul, Schizoaffective disorder, depressive type F25.1 [facility] [id number] [place] [address] 15477- 6277 Jul, [facility] [address] 90026- 3402 Jul, Hypothyroidism (acquired) E03.9 [facility] [address] 90604- 9036 11 Jul, 2017 Chronic obstructive pulmonary disease, unspecified COPD type J44.9 and Type 2 diabetes mellitus without complication, without long-term current use of insulin E11.9 [facility] [address] 13619- 3606 Jul, Paranoid schizophrenia F20.0 [facility] [address] 27371- 9297 Jun, Hypothyroidism (acquired) E03.9 and Seasonal allergic rhinitis due to pollen J30.1 [facility] [id number] [place] [address] 55964 -6900 Jun, Shortness of breath at rest R06.02 ; COPD exacerbation J44.1 and BMI 45.0-49.9, adult Z68.42 [facility] [id number] [place] [address] 69959- 5438 Jun, [facility] [id number] [place] [address] 67616- 9805 Jun, Paranoid schizophrenia F20.0 ; Depression with anxiety F41.8 and BMI 45.0-49.9, adult Z68.42 [facility] [id number] [place] [address] 38009- 7998 Jun, Schizoaffective disorder, depressive type F25.1 [facility] [id number] [place] [address] [id number] 13 Jun, 2017 Dental caries K02.9 [facility] [address] 61994- 1000 Jun, Paranoid schizophrenia F20.0 [facility] [address] [place] [address] 46789- 9288 May, Migraine without aura and without status migrainosus, not intractable G43.009 ; DM neuro manif type II E11.49 and Type 2 diabetes mellitus without complication, without long-term current use of insulin E11.9 [facility] [id number] [place] [address] 94465- 5819 May, Migraine without aura and without status migrainosus, not intractable G43.009 [facility] [id number] [place] [address] 45551- 8623 May, Depression with anxiety F41.8 [facility] [id number] [place] [address] [id number] May, [facility] [address] 30766- 2764 May, [facility] [id number] [place] [address] 14676- 5127 May, [facility] [address] 44975- 0244 May, Hypothyroidism (acquired) E03.9 [facility] [id number] [place] [address] 47495- 3516 May, Paranoid schizophrenia F20.0 [facility] [id number] [place] [address] 37438- 8568 May, Type 2 diabetes mellitus without complication, [...] N32.81 and Controlled substance agreement signed Z79.899 [facility] [id number] [place] [address] 87245- 5667 May, Controlled substance agreement signed Z79.899 [facility] [id number] [place] [address] 04240- 6248 Apr, [facility] [address] [id number] Apr, Dental examination Z01.20 [facility] [address] 67305- 1490 Apr, Paranoid schizophrenia F20.0 [facility] [id number] [place] [address] 53207- 8676 Apr, Hypertension, unspecified type I10 [facility] [id number] [place] [address] 17861- 2336 Apr, Paranoid schizophrenia F20.0 [facility] [address] 80341- 8051 Apr, [facility] [id number] [place] [address] 20240- 9847 Apr, Tobacco abuse Z72.0 [facility] [id number] [place] [address] 32118- 8045 Apr, [facility] [id number] [place] [address] 10965- 1048 Mar, [facility] [address] 50498- 2736 Mar, Paranoid schizophrenia F20.0 and BMI 45.0-49.9, adult Z68.42 [facility] [id number] [place] [address] 68711- 3422 Mar, Schizoaffective disorder, depressive type F25.1 [place] [id number] [place] [address] 46293- 4665 Mar, [place] [address] 18158- 6253 Mar, Hypothyroidism, unspecified type E03.9 [place] [address] 00972- 7897 Mar, Schizoaffective disorder, depressive type F25.1 [facility] [address] 50078 -5721 Feb, Gastroenteritis K52.9 and BMI 45.0-49.9, adult Z68.42 [place] [address] 62940- 9560 Feb, [place] [address] 06480- 0083 Feb, [place] [address] 07583- 4916 Feb, [address] 76631- 5476 16 Feb, 2017 [place] [address] 43009- 6272 Feb, Paranoid schizophrenia F20.[address] 80886- 3993 06 Feb, 2017 Gastroesophageal reflux disease without esophagitis K21.9 ; Other seasonal allergic rhinitis J30.2 ; Other allergic rhinitis J30.89 ; Tobacco abuse Z72.0 and BMI 40.0-44.9, adult Z68.[address] 90349- 6610 03 Feb, 2017 Onychomycosis B35.1 ; Callus of foot L84 and DM neuro manif type II E11.[address] 45265- 4850 Jan, Chronic allergic rhinitis J30.9 [facility] [id number] [place] [address] 56688- 9456 16 Jan, 2017 [facility] [address] 48716- 7888 Jan, Schizoaffective disorder, depressive type F25.1 [facility] [address] 19779- 2332 Jan, [facility] [address] 58062 -0678 07 Jan, 2017 Sore throat J02.9 and Seasonal allergic rhinitis due to other allergic trigger J30.89 [place] [address] 08581- 8724 Jan, [place] [address] 38936- 5613 Jan, [facility] [address] 16693 -6369 Jan, Chronic allergic rhinitis J30.9 [place] [address] 32789- 5484 27 Dec, 2016 Paranoid schizophrenia F20.0 ; Primary insomnia F51.01 and Schizoaffective disorder, depressive type F25.1 [place] [address] 88825- 9493 21 Dec, 2016 Chronic pain syndrome G89.4 ; Cervicalgia of occipito- atlanto-axial region M54.2 ; Menopausal syndrome (hot flashes) N95.1 and Encounter for immunization Z23 [place] [address] 92132- 4272 14 Dec, 2016 [place] [address] 75202- 4151 13 Dec, 2016 [facility] [address] 29057- 6450 Dec, Paranoid schizophrenia F20.0 [place] [address] [place] [address] 15874- 5736 Dec, Schizoaffective disorder, depressive type F25.1 [facility] [id number] [place] [address] 28692- 5852 Nov, Hypothyroidism, unspecified type E03.9 [facility] [id number] [place] [address] 78902 -1030 Nov, Acute seasonal allergic rhinitis due to other allergen J30.89 [place] [id number] [place] [address] 16025- 1488 Nov, [place] [id number] [place] [address] 62847- 6983 Nov, Hypothyroidism, unspecified type E03.9 and Other elevated white blood cell (WBC) count D72.828 [place] [id number] [place] [address] 31823- 7148 Nov, Schizoaffective disorder, depressive type F25.1 [place] [id number] [place] [address] 87966- 7704 Nov, Paranoid schizophrenia F20.0 [place] [facility] [id number] [place] [address] 50311- 8646 Nov, Type 2 diabetes mellitus without complication, without long- term current use of insulin E11.9 ; Morbid obesity due to excess calories E66.01 and Chronic pain syndrome G89.4 [address] [place] [address] [place] [address] 62330- 9848 Oct, Paranoid schizophrenia F20.0 [place] [id number] [place] [address] 13431- 0998 Oct, [place] [id number] [place] [address] 76697- 2828 Oct, Schizoaffective disorder, depressive type F25.1 [facility] [id number] [address]- 7759 Oct, Hypothyroidism, unspecified type E03.9 and Other elevated white blood cell (WBC) count D72.828 [facility] [id number] [place] [address] 12522- 6353 Oct, Morbid obesity due to excess calories E66.01 ; Chronic obstructive pulmonary disease, unspecified COPD type J44.9 ; History of lupus Z87.39 ; Hypothyroidism, unspecified type E03.9 ; Gastroesophageal reflux disease without esophagitis K21.9 ; Primary insomnia F51.01 and Chronic pain syndrome G89.4 [place] [id number] [place] [address] 32901- 6041 Sep, [place] [id number] [place] [address] 36560- 9791 Sep, [place] [id number] [place] [address] 52557- 8002 Sep, [place] [id number] [place] [address] 53078- 0914 Sep, Paranoid schizophrenia F20.0 [facility] [facility] [id number] [place] [address] 97625- 4602 Sep, [place] [id number] [place] [address] 44081- 4773 Sep, Paranoid schizophrenia F20.0 [facility] [id number] [place] [address] 71602- 9522 Sep, [facility] [id number] [place] [address] 92100- 4219 August, Paranoid schizophrenia F20.0 [facility] [id number] [place] [address] 28388- 9720 Jul, [facility] [id number] [place] [address] 81953- 9317 Jul, Type 2 diabetes mellitus without complication, without long- term current use of insulin E11.9 ; Morbid obesity due to excess calories E66.01 ; Depression with anxiety F41.8 ; Hypothyroidism, unspecified type E03.9 ; Seasonal allergic rhinitis due to other allergic trigger J30.89 ; Pain, dental K08.89 and Gastroesophageal reflux disease without esophagitis K21.9 [facility] [address] [place] [address] [id number] 12 Jul, 2016 Dental examination Z01.20 [place] [address] 14235- 5877 07 Jul, 2016 Paranoid schizophrenia F20.[address] 05726- 5646 13 Jun, 2016 Paranoid schizophrenia F20.0 and Depression with anxiety F41.8 [id number] [place] [address] 67063- 0792 10 Jun, 2016 Paranoid schizophrenia F20.0 and Depression with anxiety F41.8 [place] [id number] [place] [address] 27257- 0952 09 Jun, [address] 84577- 6718 Jun, [facility] [id number] [place] [address] 32597 -7207 Jun, Seasonal allergic rhinitis due to other allergic trigger J30.89 [facility] [address] [place] [id number] [place] [address] 93859 -8441 May, Sore throat J02.9 ; Other viral agents as the cause of diseases classified elsewhere B97.89 and Acute upper respiratory infection, unspecified J06.9 [id number] [place] [address] 29167- 3544 08 May, 2016 Paranoid schizophrenia F20.0 and Depression with anxiety F41.[address] 90536- 7363 Apr, Other seasonal allergic rhinitis J30.2 [place] [id number] [place] [address] 00162- 2686 Apr, Paranoid schizophrenia F20.0 and Depression with anxiety F41.8 [facility] [id number] [place] [address] 02396 -8063 Apr, Bronchitis J40 and Sore throat J02.9 [place] [address] 94239- 1703 Apr, Type 2 diabetes mellitus without complication, without long- term current use of insulin E11.9 [facility] [id number] [place] [address] 06496 -0328 Apr, Bronchitis J40 [place] [id number] [place] [address] 24549- 8516 Apr, [place] [address] 00704- 4986 Apr, [place] [id number] [place] [address] 64611- 6528 Mar, Type 2 diabetes mellitus without complication, [...] R60.9 and Other seasonal allergic rhinitis J30.2 [place] [id number] [place] [address] 07628- 0189 Mar, Paranoid schizophrenia F20.0 and Depression with anxiety F41.8 [place] [id number] [place] [address] 67636- 3929 Feb, [place] [id number] [place] [address] 34769- 8324 Feb, [facility] [address] [address]- 2984 Feb, [facility] [id number] [place] [address] 42223- 3883 Feb, [facility] [id number] [place] [address] 99363- 8364 Feb, Type 2 diabetes mellitus without complication, without long- term current use of insulin E11.9 ; ARIAS on CPAP G47.33 and Preoperative evaluation to rule out surgical contraindication Z01.818 [facility] [id number] [place] [address] 32120- 8047 09 Feb, 2016 Paranoid schizophrenia F20.0 and Depression with anxiety F41.8 [facility] [id number] [place] [address] 72092- 5347 Jan, [facility] [id number] [place] [address] 96568- 5610 Jan, Paranoid schizophrenia F20.0 and Depression with anxiety F41.8 [facility] [id number] [place] [address] 37287- 4494 Jan, [facility] [id number] [place] [address] 67679- 6215 Jan, Muscle strain T14.8 [facility] [id number] [place] [address] 12321- 6323 Jan, Paranoid schizophrenia F20.0 [facility] [address] [place] [address] 31622- 0599 Jan, [facility] [id number] [place] [address] 82726- 1221 Jan, Paranoid schizophrenia F20.0 and Depression with anxiety F41.8 [facility] [id number] [place] [address] 28317- 4357 Jan, [facility] [id number] [address]- 5172 Jan, [facility] [address] [address]- 9091 28 Dec, 2015 [facility] [id number] [place] [address] 86467- 5879 23 Dec, 2015 Paranoid schizophrenia F20.0 [facility] [id number] [place] [address] 16257- 1259 16 Dec, 2015 Paranoid schizophrenia F20.0 and Depression with anxiety F41.8 [facility] [address] [place] [address] 20693- 7116 Nov, [facility] [id number] [place] [address] 67297- 5821 Nov, Paranoid schizophrenia F20.0 [facility] [id number] [place] [address] 38548- 1677 Nov, Paranoid schizophrenia F20.0 and Depression with anxiety F41.8 [facility] [address] [address]- 8449 Nov, Type 2 diabetes mellitus without complication, without long- term current use of insulin E11.9 ; Paranoid schizophrenia F20.0 ; Chronic obstructive pulmonary disease, unspecified COPD type J44.9 ; Morbid obesity due to excess calories E66.01 and Parkinsonian tremor G20 [facility] [address] [address]- 5970 Nov, [facility] [address] [address]- 5521 Oct, Paranoid schizophrenia F20.0 [facility] [id number] [address]- 4277 Oct, Paranoid schizophrenia F20.0 [facility] [address] [address]- 3122 Oct, Paranoid schizophrenia F20.0 and Depression with anxiety F41.8 [place] [address] [address]- 5592 Oct, [place] [id number] [place] [address] 81786- 9529 Oct, Paranoid schizophrenia F20.0 and Depression with anxiety F41.8 [place] [id number] [place] [address] 53191- 2280 Oct, Nasal sore J34.89 [place] [id number] [place] [address] 83744- 7073 Oct, Type 2 diabetes mellitus without complication, without long- term current use of insulin E11.9 ; Depression with anxiety F41.8 ; Hypothyroidism, unspecified type E03.9 and History of lupus Z87.39 [place] [id number] [place] [address] 56099- 2895 Oct, [place] [id number] [place] [address] 13324- 4001 Oct, Type 2 diabetes mellitus without complication, [...] edema R60.9 and History of lupus Z87.39 [place] [id number] [address]- 6277 Feb, [place] [id number] [place] [address] 59927- 5133 Jan, [place] [id number] [place] [address] 82930- 5561 Jan, [place] [address] [place] [address] [place] [address]- 0270 Jan, [facility] [address] [facility] [id number] [place] [address] Dec, [facility] [address] [facility] [id number] [place] [address]- 0787 Nov, [facility] [address] [facility] [id number] [place] [address]- 2859 Nov, [facility] [address] [facility] [id number] [place] [address]- 5384 Oct, [facility] [id number] [place] [address]- 6432 Oct, [facility] [address] [place] [address]- 8162 Oct, [facility] [id number] [place] [address]- 4072 Sep, Allergic rhinitis 477.9 [facility] [id number] [address]- 7199 Sep, Rhinitis, allergic 477.9 [facility] [id number] [address] Sep, Rhinitis, allergic 477.9 [facility] [address] [id number] [address] Sep, [facility] [id number] [address] August, [facility] [id number] [address] August, [facility] [id number] [address] August, [facility] [id number] [address] Jul, [facility] [id number] [place] [address] 14 Jul, 2014 [facility] [place] [facility] [address] [id number] [place] [address] 13 Jul, 2014 [facility] [place] [facility] [address] [address] [id number] [place] [address] 16 Jun, 2014 [facility] [place] [facility] [address] [id number] [place] [address] 16 Jun, 2014 [facility] [place] [facility] [address] [id number] [place] [address] Jun, [facility] [place] [facility] [address] [id number] [place] [address] 76[address] Jun, [facility] [place] [facility] [address] [id number] [place] [address] 13[address] Jun, [facility] [place] [facility] [address] [id number] [place] [address] 2494 Jun, [facility] [place] [facility] [address] [id number] [place] [address] Jun, [facility] [place] [facility] [address] [id number] [place] [address] 137[address] Jun, [facility] [place] [facility] [address] [facility] [id number] [place] [address] 9679 May, [facility] [place] [facility] [address] [id number] [place] [address]856 May, [facility] [place] [facility] [address] [id number] [place] [address] 6[address] May, [facility] [place] [facility] [address] [id number] [place] [address] 6531 May, [facility] [place] [facility] [address] [id number] [place] [address] Apr, [facility] [place] [facility] [address] [id number] [place] [address] 1077 Mar, [facility] [place] [facility] [address] [id number] [place] [address] 1471 Mar, [facility] [place] [facility] [address] [id number] [place] [address] 8485 Mar, [facility] [place] [facility] [address] [id number] [place] [address] Mar, [facility] [place] [facility] [address] [id number] [place] [address] 5644 Mar, [facility] [place] [facility] [address] [id number] [place] [address] 3410 Mar, [facility] [place] [facility] [address] [id number] [place] [address] 8885 Mar, [facility] [place] [facility] [address] [id number] [place] [address] 6930 Mar, [facility] [place] [facility] [address] [id number] [place] [address] 0704 Mar, [facility] [place] [facility] [address] [id number] [place] [address] 44[address] Feb, [facility] [place] [facility] [address] [id number] [place] [address] 7851 Feb, [facility] [place] [facility] [address] [id number] [place] [address] 0456 Feb, [facility] [place] [facility] [address] [id number] [place] [address] 2515 17 Feb, 2014 [facility] [place] [facility] [address] [id number] [place] [address] 6316 Feb, [facility] [place] [facility] [address] [id number] [place] [address]- 3241 Feb, [facility] [place] [facility] [address] [id number] [place] [address] 5510 Feb, [facility] [place] [facility] [address] [id number] [place] [address] 3356 12 Feb, 2014 [facility] [place] [facility] [address] [id number] [place] [address] 8393 23 Jan, 2014 [facility] [place] [facility] [address] [id number] [place] [address] 5290 23 Jan, 2014 [facility] [place] [facility] [address] [id number] [place] [address] 16 Jan, 2014 [facility] [place] [facility] [address] [id number] [place] [address] 3222 16 Jan, 2014 [facility] [place] [facility] [address] [id number] [place] [address] 7510 15 Jan, 2014 [facility] [place] [facility] [address] [id number] [place] [address]- 1424 15 Jan, 2014 [facility] [place] [facility] [address] [id number] [place] [address] 2539 14 Jan, 2014 [facility] [place] [facility] [address] [id number] [place] [address] 7841 14 Jan, 2014 [facility] [place] [facility] [address] [id number] [place] [address]- 2428 14 Jan, 2014 [facility] [place] [facility] [address] [id number] [place] [address] 0204 14 Jan, 2014 [facility] [place] [facility] [address] [id number] [place] [address] 6572 18 Dec, 2013 [facility] [place] [facility] [address] [id number] [address] 18 Dec, 2013 [facility] [place] [facility] [address] [id number] [place] [address] 9068 10 Dec, 2013 [facility] [place] [facility] [address] [id number] [place] [address]- 0045 10 Dec, 2013 [facility] [place] [facility] [address] [id number] [place] [address] 7450 Nov, [facility] [place] [facility] [address] [id number] [place] [address] 4606 Nov, [facility] [place] [facility] [address] [id number] [place] [address] 7691 Nov, [facility] [place] [facility] [address] [id number] [place] [address]- 5040 Nov, [facility] [place] [facility] [address] [id number] [place] [address] 8155 Nov, [facility] [place] [facility] [address] [id number] [place] [address]- 8255 Oct, [facility] [place] [facility] [address] [id number] [place] [address] 1790 Oct, [facility] [place] [facility] [address] [id number] [place] [address] 0805 Oct, [facility] [place] [facility] [address] [id number] [place] [address] 4650 Oct, [facility] [place] [facility] [address] [id number] [place] [address] 5875 Sep, [facility] [place] [facility] [address] [id number] [place] [address]- 8712 Sep, [facility] [place] [facility] [address] [id number] [place] [address]- 7809 Sep, [facility] [place] [facility] [address] [id number] [place] [address]- 4872 Sep, [facility] [place] [facility] [address] [id number] [place] [address] 6040 Sep, [facility] [place] [facility] [address] [id number] [place] [address] 8518 Sep, [facility] [place] [facility] [address] [id number] [place] [address]- 4208 Sep, [facility] [place] [facility] [address] [id number] [place] [address]- 5223 Sep, [facility] [address] [id number] [place] [address] 4500 August, [facility] [place] [facility] [address] [id number] [place] [address] 4625 August, [facility] [place] [facility] [address] [id number] [place] [address] August, [facility] [place] [facility] [address] [id number] [place] [address]- 9213 August, [facility] [place] [facility] [address] [id number] [place] [address]- 6531 August, [facility] [place] [facility] [address] [id number] [place] [address]- 5694 August, [facility] [place] [facility] [address] [id number] [place] [address]- 9940 August, [facility] [place] [facility] [address] [id number] [place] [address]- 5727 Jul, [facility] [place] [facility] [address] [id number] [place] [address]- 3496 Jul, [facility] [place] [facility] [address] [id number] [place] [address]- 4128 Jul, [facility] [place] [facility] [address] [id number] [place] [address]- 9768 Jul, [facility] [place] [facility] [address] [id number] [place] [address]- 1344 Jul, [facility] [place] [facility] [address] [id number] [place] [address]- 7956 Jul, [facility] [place] [facility] [address] [id number] [place] [address]- 0331 Jul, [facility] [place] [facility] [address] [id number] [place] [address]- 2974 Jul, [facility] [place] [facility] [address] [id number] [place] [address]- 0938 10 Jul, 2013 [facility] [place] [facility] [address] [id number] [place] [address]- 3814 Jul, [facility] [place] [facility] [address] [id number] [place] [address]- 8109 Jul, [facility] [place] [facility] [address] [id number] [place] [address]- 3126 Jul, [facility] [place] [facility] [address] [id number] [place] [address]- 6838 Jun, [facility] [place] [facility] [address] [id number] [place] [address]- 6012 Jun, [facility] [place] [facility] [address] [facility] [id number] [place] [address]- 5010 Jun, [facility] [place] [facility] [address] [id number] [place] [address]- 4673 Jun, [facility] [place] [facility] [address] [facility] [id number] [place] [address]- 4240 Jun, [facility] [place] [facility] [address] [id number] [place] [address]- 4579 May, [facility] [place] [facility] [address] [facility] [id number] [place] [address]- 2305 May, [facility] [place] [facility] [address] [id number] [place] [address]- 9501 May, [facility] [place] [facility] [address] [id number] [place] [address]- 3787 May, [facility] [place] [facility] [address] [id number] [place] [address]70 May, [facility] [place] [facility] [address] [facility] [id number] [place] [address] May, [facility] [place] [facility] [address] [facility] [id number] [place] [address]- 2647 May, [facility] [place] [facility] [address] [id number] [place] [address]- 5750 May, [facility] [place] [facility] [address] [id number] [place] [address]- 0123 Mar, [facility] [place] [facility] [address] [facility] [id number] [place] [address]- 6779 Mar, [facility] [place] [facility] [address] [id number] [place] [address]- 5265 Mar, [facility] [place] [facility] [address] [id number] [place] [address]- 7657 Mar, [facility] [place] [facility] [address] [id number] [place] [address]- 6018 Mar, [facility] [place] [facility] [address] [id number] [place] [address]- 9106 Mar, [facility] [place] [facility] [address] [id number], [place] [address]- 3601 Feb, [facility] [place] [facility] [address] [id number], [place] [address]- 1710 Feb, [facility] [place] [facility] [address] [id number] [address]- 6658 Jan, [facility] [place] [facility] [address] [id number][place] [address]- 0285 Jan, [facility] [place] [facility] [address] [id number], [place] [address]- 1408 Jan, [facility] [place] [facility] [address] [id number], [place] [address]- 7547 Jan, [facility] [place] [facility] [address] [facility] [id number], [place] [address]- 5418 Jan, [facility] [place] [facility] [address] [facility] [id number][place] [address]- 3545 Jan, [facility] [place] [facility] [address] [id number] [place] [address]- 8915 Jan, [facility] [address] [id number] [place] [address]- 5526 Jan, [facility] [place] [facility] [address] [id number] [place] [address]- 1186 Jan, [facility] [place] [facility] [address] [id number] [place] [address]- 7860 Jan, [facility] [place] [facility] [address] [id number] [place] [address]- 1095 Dec, [facility] [place] [facility] [address] [id number] [place] [address]- 3323 Nov, [facility] [place] [facility] [address] [id number] [place] [address]- 8450 Nov, [facility] [place] [facility] [address] [id number] [place] [address]- 8614 Nov, [facility] [place] [facility] [address] [id number] [place] [address]- 7770 Oct, [facility] [place] [facility] [address] [id number] [place] [address]- 0201 Oct, [facility] [place] [facility] [address] [id number] [place] [address]- 1901 August, [facility] [place] [facility] [address] [id number] [place] [address]- 2959 Apr, [facility] [place] [facility] [address] [id number] [place] [address]- 2034 Apr, [facility] [place] [facility] [address] [id number] [place] [address]- 1602 Feb, [facility] [place] [facility] [address] [id number] [place] [address]- 2115 Feb, [facility] [place] [facility] [address] [id number] [place] [address]- 4875 Dec, [facility] [address] [facility] [id number] [place] [address]- 2206 Dec, [facility] [address] [facility] [id number], [place] [address]- 6646 Oct, [facility] [address] [facility] [id number][place] [address]- 1516 Oct, [facility] [address] [facility] [id number], [place] [address]- 2396 Oct, [facility] [address] [facility] [id number], [place] [address]- 7458 Jul, IMMUNIZATIONS No Known Immunizations SOCIAL HISTORY Never Assessed REASON FOR VISIT Lab results PLAN OF CARE VITAL SIGNS MEDICATIONS Medication Instructions Dosage Frequency Start Date End Date Duration Status Levothyroxine Sodium 200 MCG Orally Once a [...] psychosis/mental illness , last one in [facility] 4 years ago
--- OUTSIDE RECORDS SUMMARY | 2018-09-02 14:29 | XMS REPORT ---
Author Author ADELINA Arndt Organization [facility] Address [address] [place] [address] Care Team Providers Care Healthcare Financial Analyst Name Role Phone janelLUISNEHEMIAS ADELINA Unavailable PROBLEMS Type Condition ICD9-CM Code [id number] Code Onset Dates Condition Status SNOMED Code Problem Other seasonal allergic rhinitis J30.2 Active 007896838 Problem Gastroesophageal reflux disease, esophagitis presence not specified K21.9 Active 252423693 Problem Tobacco abuse Z72.0 Active 411086474 Problem Seasonal allergic rhinitis due to pollen J30.1 Active 56918449 Problem History of lupus Z87.39 Active 433257227 Problem COPD exacerbation J44.1 Active 206404934 Problem OAB (overactive bladder) N32.81 Active 958674236 Problem Morbid obesity due to excess calories E66.01 Active 611032100 Problem Dyslipidemia E78.5 Active 834853810 Problem Migraine without aura and without status migrainosus, not intractable G43.009 Active 609479748 Problem Hypothyroidism (acquired) E03.9 Active 605077724 Problem Essential hypertension I10 Active 80827513 Problem Type 2 diabetes mellitus without complication, without long-term current use of insulin E11.9 Active 770905660 Problem Gastroesophageal reflux disease without esophagitis K21.9 Active 118042288 Problem Chronic pain syndrome G89.4 Active 685122425 Problem Paranoid schizophrenia F20.0 Active 93575993 Problem Primary insomnia F51.01 Active 5453769 Problem DM neuro manif type II E11.49 Active 92686199 Problem Depression with anxiety F41.8 Active 261079513 Problem Seasonal allergic rhinitis due to other allergic trigger J30.89 Active 883290769 Problem Menopausal syndrome (hot flashes) N95.1 Active 574683364 Problem Chronic obstructive pulmonary disease, unspecified COPD type J44.9 Active 04241165 Problem Schizoaffective disorder, depressive type F25.1 Active 21436590 Problem Other allergic rhinitis J30.89 Active 017726792 ALLERGIES Substance Reaction Event Type Date Status Sulfamethoxazole-Trimethoprim Unknown Drug Allergy Jan, Active Penicillin V Potassium Unknown Drug Allergy Jan, Active ENCOUNTERS Encounter Location Date Diagnosis [facility] [address] [place] [id number] [place] [address] 95725- 1934 Nov, [place] [address] 85170- 1182 Sep, [facility] [address] 79777- 0166 August, History of lupus Z87.39 [place] [address] 85847- 8540 August, [facility] [address] 7[address] -5942 August, Seasonal allergic rhinitis, unspecified trigger J30.2 and BMI 45.0-49.9, adult Z68.42 [facility] [address] 05027- 2062 Jul, Schizoaffective disorder, depressive type F25.1 [place] [address] 79689- 6974 Jul, [place] [address] 50015- 4204 Jul, Hypothyroidism (acquired) E03.9 [place] [address] 89583- 2769 Jul, Chronic obstructive pulmonary disease, unspecified COPD type J44.9 and Type 2 diabetes mellitus without complication, without long-term current use of insulin E11.9 [place] [address] 74519- 2116 Jul, Paranoid schizophrenia F20.0 [facility] [address] 28449- 2310 Jun, Hypothyroidism (acquired) E03.9 and Seasonal allergic rhinitis due to pollen J30.1 [facility] [id number] [place] [address] 45885 -8695 Jun, Shortness of breath at rest R06.02 ; COPD exacerbation J44.1 and BMI 45.0-49.9, adult Z68.42 [facility] [address] 56673- 1653 Jun, [facility] [address] 14074- 7005 Jun, Paranoid schizophrenia F20.0 ; Depression with anxiety F41.8 and BMI 45.0-49.9, adult Z68.42 [facility] [address] 57929- 8651 Jun, Schizoaffective disorder, depressive type F25.1 [facility] [address] [id number] Jun, Dental caries K02.9 [facility] [address] 05356- 0899 Jun, Paranoid schizophrenia F20.0 [facility] [address] 72053- 7409 May, Migraine without aura and without status migrainosus, not intractable G43.009 ; DM neuro manif type II E11.49 and Type 2 diabetes mellitus without complication, without long-term current use of insulin E11.9 [facility] [id number] [place] [address] 35086- 3083 May, Migraine without aura and without status migrainosus, not intractable G43.009 [facility] [address] 02589- 8713 May, Depression with anxiety F41.8 [facility] [address] [id number] May, [facility] [address] [place] [address]- 7700 13 May, 2017 [facility] [place] [address] 73405- 9982 May, [facility] [place] [id number] [place] [address] 40284- 4264 09 May, 2017 Hypothyroidism (acquired) E03.9 [facility] [place] [address] 95502- 3203 May, Paranoid schizophrenia F20.0 [facility] [address] 94716- 1167 08 May, 2017 Type 2 diabetes mellitus [...] N32.81 and Controlled substance agreement signed Z79.899 [facility] [place] [address] 53369- 2933 May, Controlled substance agreement signed Z79.899 [facility] [place] [id number] [place] [address] 49112- 0266 Apr, [facility] [address] [id number] Apr, Dental examination Z01.20 [facility] [place] [address] 11277- 2733 Apr, Paranoid schizophrenia F20.0 [facility] [address] 71651- 9507 Apr, Hypertension, unspecified type I10 [facility] [id number] [place] [address] 69456- 9128 Apr, Paranoid schizophrenia F20.0 [facility] [id number] [place] [address] 91004- 1434 Apr, [facility] [address] 10840- 0753 Apr, Tobacco abuse Z72.0 [facility] [address] 82221- 1778 Apr, [facility] [address] 33426- 1286 Mar, [facility] [address] 95564- 3314 Mar, Paranoid schizophrenia F20.0 and BMI 45.0-49.9, adult Z68.42 [facility] [place] [id number] [place] [address] 18586- 6294 Mar, Schizoaffective disorder, depressive type F25.1 [facility] [address] 97600- 6659 Mar, [facility] [id number] [place] [address] 95774- 1809 Mar, Hypothyroidism, unspecified type E03.9 [facility] [id number] [place] [address] 61657- 7118 Mar, Schizoaffective disorder, depressive type F25.1 [facility] [id number] [place] [address] 02967 -2008 Feb, Gastroenteritis K52.9 and BMI 45.0-49.9, adult Z68.42 [facility] [id number] [place] [address] 23387- 2056 Feb, [facility] [address] 62732- 7837 Feb, [facility] [id number] [place] [address] 76491- 5320 Feb, [facility] [place] [id number] [place] [address] 63892- 1838 Feb, [facility] [place] [id number] [place] [address] 51170- 2476 Feb, Paranoid schizophrenia F20.0 [facility] [place] [id number] [place] [address] 75790- 9312 Feb, Gastroesophageal reflux disease without esophagitis K21.9 ; Other seasonal allergic rhinitis J30.2 ; Other allergic rhinitis J30.89 ; Tobacco abuse Z72.0 and BMI 40.0-44.9, adult Z68.41 [facility] [address] 14126- 7665 Feb, Onychomycosis B35.1 ; Callus of foot L84 and DM neuro manif type II E11.49 [facility] [place] [id number] [place] [address] 23733- 3990 Jan, Chronic allergic rhinitis J30.9 [facility] [id number] [place] [address] 08957- 7587 Jan, [facility] [id number] [place] [address] 04361- 8836 Jan, Schizoaffective disorder, depressive type F25.1 [facility] [id number] [place] [address] 29510- 9143 Jan, [facility] [id number] [place] [address] 23285 -5571 Jan, Sore throat J02.9 and Seasonal allergic rhinitis due to other allergic trigger J30.89 [facility] [id number] [place] [address] 87948- 2434 Jan, [facility] [address] [place] [address]- 4033 Jan, [facility] [id number] [place] [address] 79481 -6125 Jan, Chronic allergic rhinitis J30.9 [facility] [id number] [place] [address] 39796- 5205 Dec, Paranoid schizophrenia F20.0 ; Primary insomnia F51.01 and Schizoaffective disorder, depressive type F25.1 [facility] [address] 69939- 2802 Dec, Chronic pain syndrome G89.4 ; Cervicalgia of occipito- atlanto-axial region M54.2 ; Menopausal syndrome (hot flashes) N95.1 and Encounter for immunization Z23 [facility] [address] 56023- 8275 14 Dec, 2016 [facility] [address] 79382- 2777 13 Dec, 2016 [facility] [address] 82556- 8200 08 Dec, 2016 Paranoid schizophrenia F20.0 [facility] [place] [id number] [place] [address] 15422- 5696 Dec, Schizoaffective disorder, depressive type F25.1 [facility] [address] [id number] [place] [address] 70106- 3930 Nov, Hypothyroidism, unspecified type E03.9 [facility] [id number] [place] [address] 10093 -9653 Nov, Acute seasonal allergic rhinitis due to other allergen J30.89 [facility] [address] 21065- 2647 Nov, [facility] [address] 75750- 5253 Nov, Hypothyroidism, unspecified type E03.9 and Other elevated white blood cell (WBC) count D72.828 [facility] [place] [id number] [place] [address] 68800- 9530 Nov, Schizoaffective disorder, depressive type F25.1 [facility] [place] [id number] [place] [address] 34450- 9490 Nov, Paranoid schizophrenia F20.0 [facility] [id number] [place] [address] 23924- 6036 Nov, Type 2 diabetes mellitus without complication, without long- term current use of insulin E11.9 ; Morbid obesity due to excess calories E66.01 and Chronic pain syndrome G89.4 [facility] [id number] [place] [address] 72341- 6422 Oct, Paranoid schizophrenia F20.0 [facility] [id number] [place] [address] 49141- 3498 Oct, [facility] [id number] [place] [address] 77867- 8357 Oct, Schizoaffective disorder, depressive type F25.1 [facility] [id number] [place] [address] 01105- 9373 Oct, Hypothyroidism, unspecified type E03.9 and Other elevated white blood cell (WBC) count D72.828 [facility] [place] [id number] [place] [address] 27913- 9910 Oct, Morbid obesity due to excess calories E66.01 ; Chronic obstructive pulmonary disease, unspecified COPD type J44.9 ; History of lupus Z87.39 ; Hypothyroidism, unspecified type E03.9 ; Gastroesophageal reflux disease without esophagitis K21.9 ; Primary insomnia F51.01 and Chronic pain syndrome G89.4 [facility] [place] [id number] [place] [address] 88502- 4687 Sep, [facility] [id number] [place] [address] 43640- 7986 Sep, [place] [address] [address]- 3888 Sep, [facility] [id number] [place] [address] 43740- 1560 Sep, Paranoid schizophrenia F20.0 [facility] [address] [address]- 5315 Sep, [facility] [id number] [place] [address] 58763- 8664 Sep, Paranoid schizophrenia F20.0 [facility] [address] [address]- 0741 Sep, [facility] [address] [id number] [place] [address] 73136- 0590 August, Paranoid schizophrenia F20.0 [facility] [id number] [place] [address] 85175- 8474 Jul, [facility] [address] [place] [address] 26047- 8781 Jul, Type 2 diabetes mellitus without complication, without long- term current use of insulin E11.9 ; Morbid obesity due to excess calories E66.01 ; Depression with anxiety F41.8 ; Hypothyroidism, unspecified type E03.9 ; Seasonal allergic rhinitis due to other allergic trigger J30.89 ; Pain, dental K08.89 and Gastroesophageal reflux disease without esophagitis K21.9 [facility] [address] [address] Jul, Dental examination Z01.20 [facility] [address] [address]- 1207 07 Jul, 2016 Paranoid schizophrenia F20.0 [facility] [id number] [place] [address] 82650- 3862 13 Jun, 2016 Paranoid schizophrenia F20.0 and Depression with anxiety F41.8 [facility] [id number] [place] [address] 10838- 3153 Jun, Paranoid schizophrenia F20.0 and Depression with anxiety F41.8 [place] [address] [id number] [place] [address] 94706- 1003 Jun, [facility] [place] [id number] [place] [address] 26531- 0307 Jun, [facility] [place] [id number] [place] [address] 23646 -2006 Jun, Seasonal allergic rhinitis due to other allergic trigger J30.89 [facility] [place] [id number] [place] [address] 26460 -5910 May, Sore throat J02.9 ; Other viral agents as the cause of diseases classified elsewhere B97.89 and Acute upper respiratory infection, unspecified J06.9 [facility] [id number] [place] [address] 59260- 0521 May, Paranoid schizophrenia F20.0 and Depression with anxiety F41.8 [facility] [id number] [place] [address] 58820- 7798 Apr, Other seasonal allergic rhinitis J30.2 [facility] [place] [id number] [place] [address] 53975- 2662 Apr, Paranoid schizophrenia F20.0 and Depression with anxiety F41.8 [facility] [place] [id number] [place] [address] 39237 -0279 Apr, Bronchitis J40 and Sore throat J02.9 [facility] [place] [id number] [place] [address] 47189- 7077 Apr, Type 2 diabetes mellitus without complication, without long- term current use of insulin E11.9 [facility] [place] [id number] [place] [address] 71373 -3265 Apr, Bronchitis J40 [facility] [id number] [place] [address] 47014- 0508 Apr, [facility] [place] [id number] [place] [address] 13731- 5665 Apr, [place] [address] 29261- 1065 Mar, Type 2 diabetes mellitus without complication, [...] R60.9 and Other seasonal allergic rhinitis J30.2 [place] [address] 93483- 8532 Mar, Paranoid schizophrenia F20.0 and Depression with anxiety F41.8 [place] [address] 66591- 5277 Feb, [place] [address] 44937- 4441 Feb, [place] [address] 89586- 4908 Feb, [place] [address] 80848- 6070 Feb, [place] [address] 41738- 7993 Feb, Type 2 diabetes mellitus without complication, without long- term current use of insulin E11.9 ; ARIAS on CPAP G47.33 and Preoperative evaluation to rule out surgical contraindication Z01.818 [place] [address] 17900- 8411 Feb, Paranoid schizophrenia F20.0 and Depression with anxiety F41.8 [place] [address] 96106- 1293 Jan, [place] [address] [facility] [id number] [address]- 0091 18 Jan, 2016 Paranoid schizophrenia F20.0 and Depression with anxiety F41.8 [facility] [address] [facility] [id number] [place] [address]- 2589 17 Jan, 2016 [facility] [address] [facility] [id number], [place] [address]- 3494 14 Jan, 2016 Muscle strain T14.8 [facility] [address] [facility] [id number] [place] [address] 65529- 0479 10 Jan, 2016 Paranoid schizophrenia F20.0 [facility] [address] [facility] [id number] [place] [address], [place] [address]- 2718 07 Jan, 2016 [facility] [address] [facility] [id number] [place] [address] 49483- 6799 05 Jan, 2016 Paranoid schizophrenia F20.0 and Depression with anxiety F41.8 [facility] [address] [facility] [id number], [place] [address]- 3786 05 Jan, 2016 [facility] [address] [facility] [id number] [place] [address] 69453- 2584 03 Jan, 2016 [facility] [address] [place] [id number] [address]- 3802 28 Dec, 2015 [facility] [address] [id number] [address]- 8858 23 Dec, 2015 Paranoid schizophrenia F20.0 [facility] [address] [facility] [id number], [place] [address]- 0384 16 Dec, 2015 Paranoid schizophrenia F20.0 and Depression with anxiety F41.8 [facility] [address] [facility] [id number], [place] [address]- 4977 31 Nov, 2015 [facility] [address] [facility] [id number], [place] [address]- 3608 24 Nov, 2015 Paranoid schizophrenia F20.0 [facility] [address] [facility] [id number] [place] [address] 56611- 2530 Nov, Paranoid schizophrenia F20.0 and Depression with anxiety F41.8 [place] [address] [place] [id number] [place] [address]- 7760 Nov, Type 2 diabetes mellitus without complication, without long- term current use of insulin E11.9 ; Paranoid schizophrenia F20.0 ; Chronic obstructive pulmonary disease, unspecified COPD type J44.9 ; Morbid obesity due to excess calories E66.01 and Parkinsonian tremor G20 [place] [address] [place] [id number] [place] [address] 76615- 3376 Nov, [place] [address] 69050- 2776 Oct, Paranoid schizophrenia F20.0 [place] [address] [place] [id number] [place] [address] 18528- 9097 Oct, Paranoid schizophrenia F20.0 [place] [address] [place] [id number] [place] [address] 88257- 8213 Oct, Paranoid schizophrenia F20.0 and Depression with anxiety F41.8 [place] [address] [place] [id number] [place] [address] 70216- 8091 Oct, [place] [address] [place] [id number] [place] [address] 81737- 5931 Oct, Paranoid schizophrenia F20.0 and Depression with anxiety F41.8 [place] [address] [place] [id number] [place] [address] 87377- 8092 Oct, Nasal sore J34.89 [place] [address] [place] [id number] [place] [address] 11915- 4352 Oct, Type 2 diabetes mellitus without complication, without long- term current use of insulin E11.9 ; Depression with anxiety F41.8 ; Hypothyroidism, unspecified type E03.9 and History of lupus Z87.39 [place] [address] 22966- 8504 Oct, [facility] [address], [place] [address]- 2006 Oct, Type 2 diabetes mellitus without complication, [...] of lupus Z87.39 [facility] [id number] [place] [address] 61357- 8226 Feb, [facility] [id number] [place] [address] 02002- 9806 Jan, [facility] [id number] [place] [address] 46687- 7676 Jan, [facility] [id number] [place] [address] 12560- 3666 Jan, [facility] [id number] [place] [address] 71297- 7756 Dec, [facility] [id number] [place] [address] 00003- 4396 Nov, [facility] [id number] [place] [address] 93859- 2546 Nov, [facility] [id number] [place] [address] 72813- 2546 Oct, [facility] [id number] [place] [address] 86516- 6406 Oct, [facility] [address] [id number] [place] [address] 38593- 2546 Oct, [facility] [address] [place] [address]- 8683 12 Sep, 2014 Allergic rhinitis 477.9 [facility] [address], [place] [address]- 6638 11 Sep, 2014 Rhinitis, allergic 477.9 [facility] [address] [place] [id number] [place] [address]- 9713 10 Sep, 2014 Rhinitis, allergic 477.9 [facility] [address] [facility] [id number], [place] [address]- 5383 Sep, [facility] [address] [place] [id number] [place] [address]- 6424 August, [facility] [address], [place] [address]- 5872 August, [facility] [address], [place] [address]- 0790 August, [facility] [address], [place] [address] Jul, [facility] [id number], [place] [address] 14 Jul, 2014 [facility] [id number], [place] [address] Jul, [facility] [id number], [place] [address] 16 Jun, 2014 [facility] [place] [facility] [id number], [place] [address] 16 Jun, 2014 [facility] [place] [facility] [id number], [place] [address] Jun, [facility] [place] [facility] [id number] [address] Jun, [facility] [place] [facility] [id number], [place] [address] Jun, [facility] [place] [facility] [id number] [place] [address] 11 Jun, 2014 [facility] [place] [facility] [address] [id number] [place] [address] Jun, 2014 [facility] [place] [facility] [address] [id number] [place] [address] Jun, 2014 [facility] [place] [facility] [address] [id number] [place] [address] May, 2014 [facility] [place] [facility] [address] [id number] [place] [address] May, 2014 [facility] [place] [facility] [address] [id number] [place] [address] May, 2014 [facility] [place] [facility] [address] [id number] [place] [address] May, 2014 [facility] [place] [facility] [address] [id number] [place] [address] Apr, [facility] [place] [facility] [address] [id number] [place] [address] Mar, [facility] [place] [facility] [address] [id number] [place] [address] Mar, [facility] [place] [facility] [address] [facility] [id number] [place] [address] Mar, [facility] [place] [facility] [address] [id number] [place] [address] Mar, [facility] [place] [facility] [address] [id number] [place] [address] 2546 Mar, [facility] [place] [facility] [address] [id number] [place] [address] 74[address] Mar, [facility] [place] [facility] [address] [id number] [place] [address] 1396 Mar, [facility] [place] [facility] [address] [id number] [place] [address] 45[address] Mar, [facility] [place] [facility] [address] [id number] [place] [address] 3071 Mar, [facility] [place] [facility] [address] [id number] [place] [address] 69[address] Feb, [facility] [place] [facility] [address] [id number] [place] [address] 8673 Feb, [facility] [place] [facility] [address] [id number] [place] [address] 4235 Feb, [facility] [place] [facility] [address] [id number] [place] [address] 7615 Feb, [facility] [place] [facility] [address] [id number] [place] [address] 6305 Feb, [facility] [place] [facility] [address] [id number] [place] [address] 8[address] Feb, [facility] [place] [facility] [address] [id number] [place] [address] Feb, [facility] [place] [facility] [address] [id number] [place] [address] 6969 Feb, [facility] [place] [facility] [address] [id number] [place] [address] 1078 Jan, [facility] [place] [facility] [address] [id number] [place] [address] 2969 Jan, [facility] [place] [facility] [address] [id number], [place] [address] 16 Jan, 2014 [facility] [place] [facility] [address] [id number] [place] [address] 1324 16 Jan, 2014 [facility] [place] [facility] [address] [id number] [place] [address] 1125 15 Jan, 2014 [facility] [place] [facility] [address] [id number] [place] [address] 8229 15 Jan, 2014 [facility] [place] [facility] [address] [id number] [place] [address] 8211 14 Jan, 2014 [facility] [place] [facility] [address] [id number] [place] [address]- 6087 14 Jan, 2014 [facility] [place] [facility] [address] [id number] [place] [address] 5610 14 Jan, 2014 [facility] [place] [facility] [address] [id number] [place] [address]- 7944 14 Jan, 2014 [facility] [place] [facility] [address] [id number] [place] [address] 2927 18 Dec, 2013 [facility] [place] [facility] [address] [id number] [place] [address]- 3308 18 Dec, 2013 [facility] [place] [facility] [address] [id number] [place] [address]- 3977 10 Dec, 2013 [facility] [place] [facility] [address] [id number] [place] [address] 3481 10 Dec, 2013 [facility] [place] [facility] [address] [id number] [place] [address] 5295 Nov, [facility] [place] [facility] [address] [id number] [place] [address] 0961 Nov, [facility] [place] [facility] [address] [id number] [place] [address] 4759 Nov, [facility] [place] [facility] [address] [id number] [place] [address]- 8912 Nov, [facility] [place] [facility] [address] [id number] [place] [address] 4293 Nov, [facility] [place] [facility] [address] [id number] [place] [address]- 5872 Oct, [facility] [place] [facility] [address] [id number] [place] [address] 5819 Oct, [facility] [place] [facility] [address] [id number] [place] [address]- 5645 Oct, [facility] [place] [facility] [address] [id number] [place] [address] 0607 Oct, [facility] [place] [facility] [address] [id number] [place] [address] 6495 Sep, [facility] [place] [facility] [address] [id number] [place] [address] 1666 Sep, [facility] [place] [facility] [address] [id number] [place] [address] Sep, [facility] [place] [facility] [address] [id number] [place] [address]- 5644 Sep, [facility] [place] [facility] [address] [id number] [place] [address]- 0600 Sep, [facility] [place] [facility] [address] [id number] [place] [address]- 2749 Sep, [facility] [place] [facility] [address] [id number] [place] [address]- 9175 Sep, [facility] [place] [facility] [address] [id number] [place] [address]- 6627 Sep, [facility] [place] [facility] [address] [id number] [place] [address]- 3346 August, [facility] [place] [facility] [address] [id number] [place] [address]- 0394 August, [facility] [place] [facility] [address] [id number] [place] [address]- 6278 August, [facility] [place] [facility] [address] [id number] [place] [address]- 1484 August, [facility] [place] [facility] [address] [id number] [place] [address]- 9399 August, [facility] [place] [facility] [address] [id number] [place] [address]- 3484 August, [facility] [place] [facility] [address] [id number] [place] [address]- 8863 August, [facility] [place] [facility] [address] [id number] [place] [address]- 2019 Jul, [facility] [place] [facility] [address] [id number] [place] [address]- 9872 Jul, [facility] [place] [facility] [address] [id number] [place] [address] Jul, [facility] [place] [facility] [address] [id number] [place] [address]- 2077 Jul, [facility] [place] [facility] [address] [id number] [place] [address]- 6097 Jul, [facility] [place] [facility] [address] [id number] [place] [address]- 3853 Jul, [facility] [place] [facility] [address] [id number] [place] [address]- 6095 Jul, [facility] [place] [facility] [address] [id number] [place] [address]- 5903 Jul, [facility] [place] [facility] [address] [id number] [place] [address]- 8163 Jul, [facility] [place] [facility] [address] [id number] [place] [address]- 1292 Jul, [facility] [place] [facility] [address] [id number] [place] [address]- 1351 Jul, [facility] [place] [facility] [address] [id number] [place] [address]- 7586 Jul, [facility] [place] [facility] [address] [id number] [place] [address]- 3278 Jun, [facility] [place] [facility] [address] [id number] [place] [address]- 2852 Jun, [facility] [place] [facility] [address] [id number] [place] [address]- 5721 Jun, [facility] [place] [facility] [address] [id number] [place] [address]- 4119 Jun, [facility] [place] [facility] [address] [id number] [place] [address]- 1006 Jun, [facility] [place] [facility] [address] [id number] [place] [address]- 1496 May, [facility] [place] [facility] [address] [id number] [place] [address]- 9866 May, [facility] [place] [facility] [address] [id number] [place] [address]- 2685 May, [facility] [place] [facility] [address] [id number] [place] [address]- 6577 May, [facility] [place] [facility] [address] [facility] [id number] [place] [address]- 8013 May, [facility] [place] [facility] [address] [id number] [place] [address]- 4611 May, [facility] [place] [facility] [address] [id number] [place] [address]- 4617 May, [facility] [place] [facility] [address] [facility] [id number] [place] [address]- 7866 May, [facility] [place] [facility] [address] [facility] [id number] [place] [address]- 1162 Mar, [facility] [place] [facility] [address] [id number] [place] [address]- 3676 Mar, [facility] [place] [facility] [address] [id number] [place] [address]- 4112 Mar, [facility] [place] [facility] [address] [id number] [place] [address]- 4576 Mar, [facility] [place] [facility] [address] [facility] [id number] [place] Mar, [facility] [place] [facility] [address] [id number] [place] [address]- 3890 Mar, [facility] [place] [facility] [address] [id number] [place] [address]- 6750 Feb, [facility] [place] [facility] [address] [id number] [place] [address]- 5146 Feb, [facility] [place] [facility] [address] [id number] [place] [address]- 7239 Jan, [facility] [place] [facility] [address] [id number] [place] [address]- 5304 Jan, [facility] [place] [facility] [address] [id number] [place] [address]- 5523 Jan, [facility] [place] [facility] [address] [id number], [place] [address]- 4746 Jan, [facility] [place] [facility] [address] [id number] [place] [address]- 3938 Jan, [facility] [place] [facility] [address] [id number], [place] [address]- 5171 Jan, [facility] [place] [facility] [address] [id number], [place] [address]- 1139 Jan, [facility] [place] [facility] [address] [id number], [place] [address]- 3307 Jan, [facility] [place] [facility] [address] [id number], [place] [address]- 3407 Jan, [facility] [place] [facility] [address] [id number], [place] [address]- 4523 Jan, [facility] [place] [facility] [address] [id number], [place] [address]- 2540 Dec, [facility] [place] [facility] [address] [id number], [place] [address]- 1996 Nov, [facility] [place] [facility] [address] [id number], [place] [address]- 2546 Nov, [facility] [place] [facility] [address] [id number], [place] [address]- [address] Nov, [facility] [address] [id number], [place] [address] Oct, [facility] [id number], [place] [address]- 8466 Oct, [facility] [id number], [place] [address]- 5111 August, [facility] [address] [id number], [place] [address]- 0180 Apr, [facility] [id number], [place] [address]- 8149 Apr, [facility] [id number], [place] [address]- 9523 Feb, [facility] [id number], [place] [address]- 3587 Feb, [facility] [id number], [place] [address]- 6537 Dec, [facility] [id number], [place] [address]- 1398 Dec, [facility] [address] [id number], [place] [address]- 0621 Oct, [facility] [address] [id number], [place] [address]- 3158 Oct, [facility] [address] [id number], [place] [address]- 0469 Oct, [facility] [address] [id number], [place] [address]- 9475 Jul, IMMUNIZATIONS Vaccine Route Administration Date Status DEPO MEDROL 40 MG/ML IM Intramuscular Jan 30, 2017 Administered DEXAMETHASONE 20MG/5 ML (PER 1 MG) IM Intramuscular Jan 30, 2017 Administered SOCIAL HISTORY Never Assessed REASON FOR VISIT dizziness, headache and nausea, ear pain, sore throat started this morning JStrasserRN PLAN OF CARE Activity Details Follow Up prn Reason: VITAL SIGNS Height 57 in 2017-01-30 Weight 221.0 lbs 2017-01-30 Temperature 97.7 degrees Fahrenheit 2017-01-30 Heart Rate 88 bpm 2017-01-30 Respiratory Rate 20 2017-01-30 BMI 47.82 kg/m2 2017-01-30 Blood pressure systolic 124 mmHg 2017-01-30 Blood pressure diastolic 80 mmHg 2017-01-30 MEDICATIONS Medication Instructions Dosage Frequency Start Date End Date Duration Status Sertraline HCl 100 MG Orally Once a day take with 50mg (150mg a day) 1 tablet 30 days Active Neurontin 600 MG Orally 2 times a day 1 tablet 12h Nov, 90 days Active Plaquenil 200 mg Orally Once a day 1 tablet with food or milk 24h 30 Active Restasis 0.05 % instill 1 drop into affected eye(s) by ophthalmic route 2 times per day Oct, Active Estradiol 1 MG Orally Once a day 1 tablet 24h Dec, 30 day(s) Active Invega Sustenna 234 MG/1.5ML Intramuscular Once a month, on the 10th of every month 1.5 ml 30 days Active Norvasc 10 mg Orally Once a day 1 tablet 24h 30 Active Benadryl Allergy 25 MG Orally every 8 hrs 1-2 capsule as needed 8h Jan, Jan, 30 days Active Spironolactone 50MG Orally Once a day 1 tablet 24h 30 Active Loxapine Succinate 25 MG Orally 4 times a day PRN 1 capsule Active Sertraline HCl 50 MG 1 tablet Once a day take with 100mg tablet Orally 30 day(s) 30 Active Januvia 50MG TAKE ONE TABLET BY MOUTH ONCE DAILY 90 Active Lisinopril 2.5 MG Orally Once a day 1 tablet 24h Nov, 90 days Active Tizanidine HCl 4 MG Orally 3 times a day 1 1/2 tablets 8h Active Pravastatin Sodium 20 MG Orally Once a day 1 tablet 24h Active Ambien 5 mg Orally Once a day 1 tablet at bedtime 24h Oct, Active Nexium 40MG Orally Once a day 1 capsule 24h 30 Active Cetirizine HCl 10MG TAKE ONE TABLET BY MOUTH ONCE DAILY 30 Active HydrOXYzine HCl 50MG TAKE ONE TO TWO TABLETS BY MOUTH EVERY 8 HOURS NEEDED FOR 30 DAYS 30 Active Myrbetriq 50 MG Orally Once a day 1 tablet 24h 90 days Active Breo Ellipta 100-25 INHALE ONE PUFF BY MOUTH ONCE DAILY AT THE SAME TIME EACH DAY 30 Active Singulair 10 MG Orally Once a day 1 tablet in the evening 24h Jan, 30 day(s) Active Metformin HCl 1000MG TAKE ONE TABLET BY MOUTH TWICE DAILY 90 Active Ventolin HFA 108 (90 Base) MCG/ACT Inhalation every 4 hrs 2 puffs as needed 4h Feb, 90 days Active Ventolin HFA 108MCG/A INHALE TWO PUFFS BY MOUTH EVERY 4 HOURS NEEDED 30 Active Ibuprofen 800MG TAKE ONE TABLET BY MOUTH THREE TIMES DAILY NEEDED 90 Active Levothyroxine Sodium 175MCG Orally Once a day 1 tablet 24h 30 Active RESULTS Name Result Date Reference Range STREP A (IN HOUSE) 2017-01-30 STREP A negative Control + Lot # [id number] Exp date 2018-01-23 PROCEDURES Procedure Date Ordered Result Body Site STREP A ASSAY W/OPTIC Jan 30, 2017 DEPO MEDROL 40 MG/ML Jan 30, 2017 DEXAMETHASONE 20MG/5 ML (PER 1 MG) Jan 30, 2017 THER/PROPH/DIAG INJ, SC/IM Jan 30, 2017 [facility] VISIT ESTABLISHED PATIENT Jan 30, 2017 INSTRUCTIONS MEDICATIONS ADMINISTERED No Known Medications [...]
--- OUTSIDE RECORDS SUMMARY | 2018-09-02 14:30 | XMS REPORT ---
Author Author JORGE COOK [facility] Address Unknown Care Team Providers Care Manual Arts Therapist Name Role Phone JORGE COOK Unavailable PROBLEMS Type Condition ICD9-CM Code INV00-DG Code Onset Dates Condition Status SNOMED Code Problem Seasonal allergic rhinitis due to other allergic trigger J30.89 Active 045891260 Problem Primary insomnia F51.01 Active 1786824 Problem Schizoaffective disorder, depressive type F25.1 Active 68997570 Problem Other seasonal allergic rhinitis J30.2 Active 200188655 Problem Depression with anxiety F41.8 Active 376415513 Problem Other allergic rhinitis J30.89 Active 772138109 Problem Morbid obesity due to excess calories E66.01 Active 143250682 Problem Chronic obstructive pulmonary disease, unspecified COPD type J44.9 Active 00207801 Problem DM neuro manif type II E11.49 Active 75432388 Problem Other elevated white blood cell (WBC) count D72.828 Active 775381336 Problem Tobacco abuse Z72.0 Active 260880214 Problem Menopausal syndrome (hot flashes) N95.1 Active 836201897 Problem Parkinsonian tremor G20 Active 309122721 Problem Type 2 diabetes mellitus without complication, without long-term current use of insulin E11.9 Active 087913976 Problem Chronic pain syndrome G89.4 Active 204392636 Problem Paranoid schizophrenia F20.0 Active 49131428 Problem Peripheral edema R60.9 Active 374736281 Problem OAB (overactive bladder) N32.81 Active 452729146 Problem History of lupus Z87.39 Active 790976288 Problem ARIAS on CPAP G47.33 Active 29316841 Problem Hypothyroidism, unspecified type E03.9 Active 21925142 Problem Gastroesophageal reflux disease without esophagitis K21.9 Active 294795524 ALLERGIES Substance Reaction Event Type Date Status Penicillins Unknown Non Drug Allergy Jul, Active Sulfa(sulfonamide Antibiotics) Unknown Non Drug Allergy Jul, Active SOCIAL HISTORY Never Assessed PLAN OF CARE Activity Details Follow Up 1 Week Reason:te #24 and 25 VITAL SIGNS Blood pressure systolic 126 mmHg 2016-08-05 Blood pressure diastolic 83 mmHg 2016-08-05 MEDICATIONS Medication Instructions Dosage Frequency Start Date End Date Duration Status Clonazepam 0.25 MG Orally Twice a day 1 tablet on the tongue and allow to dissolve 12h 10 Jun, 2016 05 days Active Belsomra 20 mg Orally Once a day 1 tablet at bedtime as needed 24h 30 days Active HydrOXYzine HCl 25 MG Orally every 8 hrs 1 tablet as needed 8h 30 day (s) Active Januvia 50MG TAKE ONE TABLET BY MOUTH ONCE DAILY 90 Active Sertraline HCl 100 MG Orally Once a day 1 tablet 24h Active Invega Sustenna 234 MG/1.5ML Intramuscular Once a month, on the 10th of every month 1.5 ml Active RESULTS No Results PROCEDURES Procedure Date Ordered Result Body Site LTD ORAL EVALUATION - PROBLEM FOCUS August 05, 2016 INTRAORL-PERIAPICAL 1 FILM 63859 August 05, 2016 IMMUNIZATIONS No Known Immunizations MEDICAL (GENERAL) [...] illness , last one in [facility] 4 years ago
--- OUTSIDE RECORDS SUMMARY | 2018-09-02 14:30 | XMS REPORT ---
Author Author UMESH PINEDA Organization [facility] Address [address] [place] [address] Care Team Providers Care Microsoft Crm Developer Name Role Phone RUBY PINEDAAUSTIN Unavailable PROBLEMS Type Condition ICD9-CM Code NRU79-ZN Code Onset Dates Condition Status SNOMED Code Problem History of lupus Z87.39 Active 332969519 Problem ARIAS on CPAP G47.33 Active 72239094 Problem OAB (overactive bladder) N32.81 Active 923422974 Problem Menopausal syndrome (hot flashes) N95.1 Active 503032693 Problem Other elevated white blood cell (WBC) count D72.828 Active 972915257 Problem Seasonal allergic rhinitis due to other allergic trigger J30.89 Active 002598057 Problem Gastroesophageal reflux disease without esophagitis K21.9 Active 608059847 Problem Primary insomnia F51.01 Active 9199311 Problem Schizoaffective disorder, depressive type F25.1 Active 86184379 Problem Morbid obesity due to excess calories E66.01 Active 268698509 Problem Depression with anxiety F41.8 Active 800274857 Problem Chronic obstructive pulmonary disease, unspecified COPD type J44.9 Active 55653614 Problem Peripheral edema R60.9 Active 797154918 Problem Paranoid schizophrenia F20.0 Active 38142596 Problem Chronic pain syndrome G89.4 Active 735487450 Problem Parkinsonian tremor G20 Active 703553136 Problem Hypothyroidism, unspecified type E03.9 Active 29473823 Problem Type 2 diabetes mellitus without complication, without long-term current use of insulin E11.9 Active 343306626 ALLERGIES No Information SOCIAL HISTORY Never Assessed PLAN OF CARE Activity Details Follow Up 3 Months Reason: VITAL SIGNS Height 57 in 2016-06-03 Weight 216 lbs 2016-06-03 BMI 46.74 kg/m2 2016-06-03 Blood pressure systolic 116 mmHg 2016-06-03 Blood pressure diastolic 86 mmHg 2016-06-03 MEDICATIONS Medication Instructions Dosage Frequency Start Date End Date Duration Status Nexium 40 mg Orally Once a day 1 capsule 24h 90 days Active Pravastatin Sodium 10 mg Orally Once a day 1 tablet 24h 30 days Active Metformin HCl 1000 MG Orally Twice a day 1 tablet with meals 12h Mar, 90 days Active Ventolin HFA 108 (90 Base) MCG/ACT Inhalation every 4 hrs 2 puffs as needed 4h Feb, 90 days Active Invega Sustenna 234 MG/1.5ML Intramuscular Once a month, on the 10th of every month 1.5 ml Active Breo Ellipta 100-25 mcg/dose Inhalation Once a day inhale 1 puff by inhalation route once daily at the same time each day 24h Jun,Mar 90 days Active Spironolactone 50MG Orally Once a day 1 tablet 24h 30 Active Suvorexant 10 mg Orally Once a day 1 tablet at bedtime as needed 24h Mar Active Levothyroxine Sodium 150 MCG Orally Once a day 1 tablet 24h 90 Active Ibuprofen 600 MG Orally Three times a day 1 tablet 8h Mar,Jun 90 days Active Tizanidine HCl 4 MG Orally 3 times a day 1 1/2 tablets 8h Active Restasis 0.05 % instill 1 drop into affected eye(s) by ophthalmic route 2 times per day Oct, Active Sertraline HCl 100 MG Orally Once a day 1 tablet 24h Active Januvia 25 MG Orally Once a day 2 tablets 24h Mar, 90 days Active Myrbetriq 50 MG Orally Once a day 1 tablet 24h 90 days Active Belsomra 20 mg Orally Once a day 1 tablet at bedtime as needed 24h 30 days Active Norvasc 10 mg Orally Once a day 1 tablet 24h 30 Active HydrOXYzine HCl 25 MG Orally every 8 hrs 1 tablet as needed 8h May, 30 day(s) Active Vistaril 25MG Orally every 8 hrs 1 capsule as needed 8h 30 Active RESULTS No Results PROCEDURES Procedure Date Ordered Result Body Site INVEGA (PT'S OWN) Jun 03, 2016 THER/PROPH/DIAG INJ, SC/IM Jun 03, 2016 [facility] VISIT ESTABLISHED PATIENT Jun 03, 2016 IMMUNIZATIONS Vaccine Route Administration Date Status INVEGA (PT'S OWN) IM Intramuscular Jun 03, 2016 Administered MEDICAL (GENERAL) HISTORY Type [...]
--- OUTSIDE RECORDS SUMMARY | 2018-09-02 14:31 | XMS REPORT ---
Author Author STRICKLANDSOTO Carias Organization [facility] Address [address] [place] [address] Care Team Providers Care Drafter Geological Name Role Phone STRICKLANDSOTO Carias Unavailable PROBLEMS Type Condition ICD9-CM Code CRT65-CS Code Onset Dates Condition Status SNOMED Code Problem Other seasonal allergic rhinitis J30.2 Active 585216942 Problem Gastroesophageal reflux disease, esophagitis presence not specified K21.9 Active 929982364 Problem Tobacco abuse Z72.0 Active 530427325 Problem Seasonal allergic rhinitis due to pollen J30.1 Active 56696948 Problem History of lupus Z87.39 Active 834177052 Problem COPD exacerbation J44.1 Active 189246824 Problem OAB (overactive bladder) N32.81 Active 056919003 Problem Morbid obesity due to excess calories E66.01 Active 252617364 Problem Dyslipidemia E78.5 Active 402578661 Problem Migraine without aura and without status migrainosus, not intractable G43.009 Active 811514194 Problem Hypothyroidism (acquired) E03.9 Active 727982094 Problem Essential hypertension I10 Active 32354313 Problem Type 2 diabetes mellitus without complication, without long-term current use of insulin E11.9 Active 401163362 Problem Gastroesophageal reflux disease without esophagitis K21.9 Active 617465673 Problem Chronic pain syndrome G89.4 Active 731065662 Problem Paranoid schizophrenia F20.0 Active 49085176 Problem Primary insomnia F51.01 Active 9710359 Problem DM neuro manif type II E11.49 Active 63472889 Problem Depression with anxiety F41.8 Active 720677608 Problem Seasonal allergic rhinitis due to other allergic trigger J30.89 Active 259691542 Problem Menopausal syndrome (hot flashes) N95.1 Active 092168278 Problem Chronic obstructive pulmonary disease, unspecified COPD type J44.9 Active 17803318 Problem Schizoaffective disorder, depressive type F25.1 Active 69321874 Problem Other allergic rhinitis J30.89 Active 100657816 ALLERGIES No Information ENCOUNTERS Encounter Location Date Diagnosis [facility] [id number] [address] Nov, [facility] [id number] [place] [address] 23858- 1188 Sep, [facility] [id number] [place] [address] 43351- 9317 Sep, [facility] [id number] [place] [address] 37817- 2613 August, Schizoaffective disorder, depressive type F25.1 [facility] [id number] [place] [address] 01713- 1300 August, [facility] [id number] [place] [address] 71207- 5939 August, [facility] [id number] [place] [address] 93911- 6629 August, [facility] [id number] [place] [address] 70385- 1245 August, Paranoid schizophrenia F20.0 [facility] [id number] [place] [address] 61465- 9637 August, History of lupus Z87.39 and Chronic pain syndrome G89.4 [facility] [id number] [place] [address] 78147- 3789 August, [facility] [id number] [place] [address] 16435 -2088 August, Seasonal allergic rhinitis, unspecified trigger J30.2 and BMI 45.0-49.9, adult Z68.42 [facility] [id number] [place] [address] 83701- 6635 Jul, Schizoaffective disorder, depressive type F25.1 [facility] [id number] [place] [address] 56851- 0762 Jul, [facility] [id number] [place] [address] 09783- 8222 Jul, Hypothyroidism (acquired) E03.9 [facility] [address] 90919- 7622 11 Jul, 2017 Chronic obstructive pulmonary disease, unspecified COPD type J44.9 and Type 2 diabetes mellitus without complication, without long-term current use of insulin E11.9 [place] [address] 94319- 7261 Jul, Paranoid schizophrenia F20.0 [place] [address] 88689- 0502 Jun, Hypothyroidism (acquired) E03.9 and Seasonal allergic rhinitis due to pollen J30.1 [facility] [address] 19404 -3644 Jun, Shortness of breath at rest R06.02 ; COPD exacerbation J44.1 and BMI 45.0-49.9, adult Z68.42 [place] [address] 49260- 4676 Jun, [place] [address] 40787- 0929 Jun, Paranoid schizophrenia F20.0 ; Depression with anxiety F41.8 and BMI 45.0-49.9, adult Z68.42 [place] [address] 90878- 3705 Jun, Schizoaffective disorder, depressive type F25.1 [facility] [address] [id number] Jun, Dental caries K02.9 [place] [address] 80651- 9232 Jun, Paranoid schizophrenia F20.0 [place] [address] 65148- 5435 May, Migraine without aura and without status migrainosus, not intractable G43.009 ; DM neuro manif type II E11.49 and Type 2 diabetes mellitus without complication, without long-term current use of insulin E11.9 [facility] [address] [place] [address] 00445- 7087 May, Migraine without aura and without status migrainosus, not intractable G43.009 [facility] [id number] [place] [address] 22425- 3928 May, Depression with anxiety F41.8 [facility] [id number] [place] [address] [phone] May, [facility] [id number] [place] [address] 29734- 7278 May, [facility] [address] 49724- 1723 May, [facility] [address] 59589- 7654 May, Hypothyroidism (acquired) E03.9 [facility] [address] 20134- 6358 May, Paranoid schizophrenia F20.0 [facility] [id number] [place] [address] 99800- 2806 May, Type 2 diabetes mellitus without complication, [...] signed Z79.899 [facility] [id number] [address] 6354 May, Controlled substance agreement signed Z79.899 [facility] [address] [place] [address] 00298- 3205 Apr, [facility] [address] [place] [address] [id number] Apr, Dental examination Z01.20 [facility] [id number] [place] [address] 17349- 4763 Apr, Paranoid schizophrenia F20.0 [facility] [id number] [place] [address] 01738- 5439 Apr, Hypertension, unspecified type I10 [facility] [id number] [place] [address] 69806- 1967 Apr, Paranoid schizophrenia F20.0 [facility] [id number] [place] [address] 74817- 1102 Apr, [facility] [id number] [place] [address] 91122- 1548 Apr, Tobacco abuse Z72.0 [facility] [id number] [place] [address] 46218- 9063 Apr, [facility] [address] [place] [address] 41550- 3624 Mar, [facility] [id number] [place] [address] 63386- 5927 Mar, Paranoid schizophrenia F20.0 and BMI 45.0-49.9, adult Z68.42 [facility] [id number] [place] [address] 86406- 0650 Mar, Schizoaffective disorder, depressive type F25.1 [facility] [id number] [place] [address] 07322- 8224 Mar, [place] [id number] [place] [address] 70144- 7331 Mar, Hypothyroidism, unspecified type E03.9 [place] [address] 26180- 2261 Mar, Schizoaffective disorder, depressive type F25.1 [facility] [address] 74327 -6643 Feb, Gastroenteritis K52.9 and BMI 45.0-49.9, adult Z68.42 [place] [address] 35647- 1307 Feb, [place] [address] 33947- 0263 Feb, [place] [address] 33830- 4966 Feb, [place] [address] 34396- 3123 Feb, [place] [address] 00330- 0400 Feb, Paranoid schizophrenia F20.[address] 02086- 3191 Feb, Gastroesophageal reflux disease without esophagitis K21.9 ; Other seasonal allergic rhinitis J30.2 ; Other allergic rhinitis J30.89 ; Tobacco abuse Z72.0 and BMI 40.0-44.9, adult Z68.41 [place] [id number] [place] [address] 00080- 8649 Feb, Onychomycosis B35.1 ; Callus of foot L84 and DM neuro manif type II E11.49 [place] [id number] [place] [address] 10399- 1244 Jan, Chronic allergic rhinitis J30.9 [place] [address] 46667- 2054 16 Jan, 2017 [facility] [id number] [place] [address] 82184- 9341 Jan, Schizoaffective disorder, depressive type F25.1 [facility] [id number] [place] [address] 13002- 1442 10 Jan, 2017 [facility] [id number] [place] [address] 09702 -1502 07 Jan, 2017 Sore throat J02.9 and Seasonal allergic rhinitis due to other allergic trigger J30.89 [facility] [id number] [place] [address] 06890- 9181 Jan, [place] [id number] [place] [address] 83865- 8403 04 Jan, 2017 [facility] [id number] [place] [address] 59612 -7862 Jan, Chronic allergic rhinitis J30.9 [facility] [id number] [place] [address] 48108- 6134 27 Dec, 2016 Paranoid schizophrenia F20.0 ; Primary insomnia F51.01 and Schizoaffective disorder, depressive type F25.1 [place] [id number] [place] [address] 64378- 1425 21 Dec, 2016 Chronic pain syndrome G89.4 ; Cervicalgia of occipito- atlanto-axial region M54.2 ; Menopausal syndrome (hot flashes) N95.1 and Encounter for immunization Z23 [facility] [id number] [place] [address] 16408- 8029 14 Dec, 2016 [place] [address] 50782- 2896 13 Dec, 2016 [place] [id number] [place] [address] 00061- 5619 08 Dec, 2016 Paranoid schizophrenia F20.0 [place] [id number] [place] [address] 48451- 2039 Dec, Schizoaffective disorder, depressive type F25.1 [facility] [address] [place] [address] 43559- 0149 Nov, Hypothyroidism, unspecified type E03.9 [facility] [address] [place] [address] 28462 -5950 Nov, Acute seasonal allergic rhinitis due to other allergen J30.89 [facility] [id number] [place] [address] 64120- 6029 Nov, [facility] [id number] [place] [address] 65959- 9496 Nov, Hypothyroidism, unspecified type E03.9 and Other elevated white blood cell (WBC) count D72.828 [place] [id number] [place] [address] 29565- 1807 Nov, Schizoaffective disorder, depressive type F25.1 [place] [id number] [place] [address] 19504- 9633 Nov, Paranoid schizophrenia F20.0 [place] [id number] [place] [address] 82760- 9257 Nov, Type 2 diabetes mellitus without complication, without long- term current use of insulin E11.9 ; Morbid obesity due to excess calories E66.01 and Chronic pain syndrome G89.4 [place] [id number] [place] [address] 27339- 2648 Oct, Paranoid schizophrenia F20.0 [place] [address] [place] [address] 71626- 6665 Oct, [place] [id number] [place] [address] 04377- 0976 Oct, Schizoaffective disorder, depressive type F25.1 [place] [id number] [place] [address] 27448- 0857 Oct, Hypothyroidism, unspecified type E03.9 and Other elevated white blood cell (WBC) count D72.828 [facility] [address] [address]- 0317 Oct, Morbid obesity due to excess calories E66.01 ; Chronic obstructive pulmonary disease, unspecified COPD type J44.9 ; History of lupus Z87.39 ; Hypothyroidism, unspecified type E03.9 ; Gastroesophageal reflux disease without esophagitis K21.9 ; Primary insomnia F51.01 and Chronic pain syndrome G89.4 [facility] [id number] [place] [address] 35774- 4266 Sep, [facility] [id number] [place] [address] 07822- 8998 Sep, [facility] [id number] [place] [address] 24308- 9989 Sep, [facility] [id number] [place] [address] 86246- 7193 Sep, Paranoid schizophrenia F20.0 [facility] [address] [address]- 0803 Sep, [facility] [id number] [place] [address] 98613- 8559 Sep, Paranoid schizophrenia F20.0 [facility] [id number] [address]- 1000 Sep, [facility] [id number] [place] [address] 44056- 9339 August, Paranoid schizophrenia F20.0 [facility] [address] [address]- 7170 Jul, [facility] [address] [place] [address] 91880- 0568 Jul, Type 2 diabetes mellitus without complication, without long- term current use of insulin E11.9 ; Morbid obesity due to excess calories E66.01 ; Depression with anxiety F41.8 ; Hypothyroidism, unspecified type E03.9 ; Seasonal allergic rhinitis due to other allergic trigger J30.89 ; Pain, dental K08.89 and Gastroesophageal reflux disease without esophagitis K21.9 [facility] [address] [place] [address] [id number] 12 Jul, 2016 Dental examination Z01.20 [facility] [id number] [place] [address] 16234- 6168 07 Jul, 2016 Paranoid schizophrenia F20.0 [place] [id number] [place] [address] 10351- 8025 13 Jun, 2016 Paranoid schizophrenia F20.0 and Depression with anxiety F41.8 [place] [id number] [place] [address] 71093- 6208 10 Jun, 2016 Paranoid schizophrenia F20.0 and Depression with anxiety F41.8 [place] [id number] [place] [address] 14744- 6973 09 Jun, 2016 [place] [id number] [place] [address] 41735- 7535 Jun, [facility] [address] [place] [id number] [place] [address] 23835 -0405 Jun, Seasonal allergic rhinitis due to other allergic trigger J30.89 [facility] [id number] [place] [address] 24420 -6871 May, Sore throat J02.9 ; Other viral agents as the cause of diseases classified elsewhere B97.89 and Acute upper respiratory infection, unspecified J06.9 [place] [address] [place] [address] 13761- 3064 May, Paranoid schizophrenia F20.0 and Depression with anxiety F41.8 [place] [id number] [place] [address] 80703- 1334 Apr, Other seasonal allergic rhinitis J30.2 [place] [id number] [place] [address] 40404- 7438 Apr, Paranoid schizophrenia F20.0 and Depression with anxiety F41.8 [facility] [id number] [place] [address] 06529 -8164 Apr, Bronchitis J40 and Sore throat J02.9 [place] [id number] [place] [address] 85282- 9670 Apr, Type 2 diabetes mellitus without complication, without long- term current use of insulin E11.9 [facility] [id number] [place] [address] 91351 -5226 Apr, Bronchitis J40 [place] [address] 08941- 8068 Apr, [place] [address] 53641- 6397 Apr, [place] [address] 14974- 8215 Mar, Type 2 diabetes mellitus without complication, [...] R60.9 and Other seasonal allergic rhinitis J30.2 [place] [id number] [place] [address] 65949- 9042 Mar, Paranoid schizophrenia F20.0 and Depression with anxiety F41.8 [place] [id number] [place] [address] 58060- 1144 Feb, [place] [id number] [place] [address] 75224- 5668 Feb, [place] [id number] [place] [address] 69238- 6150 Feb, [place] [id number] [place] [address] 78331- 2192 14 Feb, 2016 [facility] [id number] [place] [address] 86603- 7590 Feb, Type 2 diabetes mellitus without complication, without long- term current use of insulin E11.9 ; ARIAS on CPAP G47.33 and Preoperative evaluation to rule out surgical contraindication Z01.818 [place] [id number] [place] [address] 87291- 9507 09 Feb, 2016 Paranoid schizophrenia F20.0 and Depression with anxiety F41.8 [place] [id number] [place] [address] 17509- 1471 Jan, [place] [id number] [place] [address] 05402- 4628 Jan, Paranoid schizophrenia F20.0 and Depression with anxiety F41.8 [place] [id number] [place] [address] 06645- 5931 Jan, [facility] [id number] [place] [address] 03488- 2651 Jan, Muscle strain T14.8 [facility] [id number] [place] [address] 52095- 1012 Jan, Paranoid schizophrenia F20.0 [facility] [id number] [place] [address] 80946- 5470 Jan, [facility] [id number] [place] [address] 05909- 0834 Jan, Paranoid schizophrenia F20.0 and Depression with anxiety F41.8 [facility] [id number] [place] [address] 55955- 6413 Jan, [facility] [id number] [place] [address] 99159- 8774 Jan, [facility] [id number] [place] [address] 41940- 0837 28 Dec, 2015 [facility] [address] [address]- 8909 23 Dec, 2015 Paranoid schizophrenia F20.0 [facility] [address] [address]- 1269 16 Dec, 2015 Paranoid schizophrenia F20.0 and Depression with anxiety F41.8 [facility] [id number] [place] [address] 04432- 3796 Nov, [facility] [id number] [place] [address] 61762- 2751 Nov, Paranoid schizophrenia F20.0 [facility] [address] [place] [address] 68214- 3900 Nov, Paranoid schizophrenia F20.0 and Depression with anxiety F41.8 [facility] [address] [place] [address] 39573- 6691 Nov, Type 2 diabetes mellitus without complication, without long- term current use of insulin E11.9 ; Paranoid schizophrenia F20.0 ; Chronic obstructive pulmonary disease, unspecified COPD type J44.9 ; Morbid obesity due to excess calories E66.01 and Parkinsonian tremor G20 [facility] [address] [address]- 1282 Nov, [facility] [address] [address]- 2712 Oct, Paranoid schizophrenia F20.0 [facility] [address] [address]- 7932 Oct, Paranoid schizophrenia F20.0 [facility] [id number] [place] [address] 72285- 7155 Oct, Paranoid schizophrenia F20.0 and Depression with anxiety F41.8 [facility] [address] [address]- 0413 Oct, [facility] [id number] [place] [address] 44023- 4192 Oct, Paranoid schizophrenia F20.0 and Depression with anxiety F41.8 [place] [id number] [place] [address] 52448- 5049 Oct, Nasal sore J34.89 [place] [address] 84438- 1503 Oct, Type 2 diabetes mellitus without complication, without long- term current use of insulin E11.9 ; Depression with anxiety F41.8 ; Hypothyroidism, unspecified type E03.9 and History of lupus Z87.39 [place] [address] 45994- 0752 Oct, [place] [id number] [place] [address] 97630- 2184 Oct, Type 2 diabetes mellitus without complication, [...] edema R60.9 and History of lupus Z87.39 [place] [id number] [place] [address] 29540- 3885 Feb, [place] [id number] [place] [address] 62588- 4698 Jan, [place] [id number] [place] [address] 89788- 1567 Jan, [place] [id number] [place] [address] 11830- 5025 Jan, [place] [address] 61182- 7874 Dec, [facility] [id number] [address]- 7739 Nov, [facility] [address] [facility] [place]NOTE 2[facility] [id number] [address] Nov, [facility] [address] [id number] [place] [address] Oct, [facility] [id number] [place] [address]- [address] Oct, [facility] [address] [id number] [address] Oct, [facility] [id number] [address] Sep, All[facility] rhinitis 477.9 [facility] [id number] [place] [address]- [address] Sep, Rhinitis, allergic 477.9 [facility] [address] [id number] [address] Sep, Rhinitis, allergic 477.9 [facility] [id number] [address] Sep, [facility] [id number] [address] August, [facility] [id number] [address] August, [facility] [address] [id number] [address] August, [facility] [id number] [address] Jul, [facility] [address] [id number] [address] Jul, [facility] [id number] [address] 13 Jul, 2014 [facility] [place] [facility] [address] [id number] [place] [address] 16 Jun, 2014 [facility] [place] [facility] [address] [id number] [place] [address] 16 Jun, 2014 [facility] [place] [facility] [address] [id number] [place] [address]- [address] Jun, [facility] [place] [facility] [address] [id number] [place] [address] Jun, [facility] [place] [facility] [address] [id number] [place] [address] Jun, [facility] [place] [facility] [address] [id number] [place] [address] Jun, [facility] [place] [facility] [address] [facility] [place] [id number] [place] [address] Jun, [facility] [place] [facility] [address] [id number] [place] [address] 3756 Jun, [facility] [place] [facility] [address] [id number] [place] [address] 0647 May, [facility] [place] [facility] [address] [facility] [place] [id number] [place] [address] May, [facility] [place] [facility] [address] [id number] [place] [address] 5004 May, [facility] [place] [facility] [address] [id number] [place] [address] 2461 May, [facility] [place] [facility] [address] [id number] [place] [address] 49[address] Apr, [facility] [place] [facility] [address] [id number] [place] [address] Mar, [facility] [place] [facility] [address] [facility] [place] [facility] [id number] [place] [address] Mar, [facility] [place] [facility] [address] [id number] [place] [address] 5511 Mar, [facility] [place] [facility] [address] [id number] [place] [address] 3140 Mar, [facility] [place] [facility] [address] [id number] [place] [address] Mar, [facility] [place] [facility] [address] [id number] [place] [address]- 2679 Mar, [facility] [place] [facility] [address] [id number] [place] [address] 8391 Mar, [facility] [place] [facility] [address] [id number] [place] [address]- 1514 Mar, [facility] [place] [facility] [address] [id number] [place] [address] 6203 Mar, [facility] [place] [facility] [address] [id number] [place] [address] 9741 Feb, [facility] [place] [facility] [address] [id number] [place] [address] 4996 Feb, [facility] [place] [facility] [address] [id number] [place] [address] 3238 Feb, [facility] [place] [facility] [address] [id number] [place] [address]- 3824 17 Feb, 2014 [facility] [place] [facility] [address] [id number] [place] [address] 5038 Feb, [facility] [place] [facility] [address] [id number] [place] [address] 3903 14 Feb, 2014 [facility] [place] [facility] [address] [id number] [place] [address]- 0895 Feb, [facility] [place] [facility] [address] [id number] [place] [address]- 0932 Feb, [facility] [place] [facility] [address] [id number] [place] [address]- 3561 23 Jan, 2014 [facility] [place] [facility] [address] [id number] [place] [address]- 6191 23 Jan, 2014 [facility] [place] [facility] [address] [id number] [place] [address]- 6622 16 Jan, 2014 [facility] [place] [facility] [address] [id number] [place] [address]- 4547 16 Jan, 2014 [facility] [place] [facility] [address] [id number] [place] [address]- 8689 15 Jan, 2014 [facility] [place] [facility] [address] [id number] [place] [address]- 8782 15 Jan, 2014 [facility] [place] [facility] [address] [id number] [place] [address]- 8720 14 Jan, 2014 [facility] [place] [facility] [address] [id number] [place] [address]- 7547 14 Jan, 2014 [facility] [place] [facility] [address] [id number] [place] [address] 3811 14 Jan, 2014 [facility] [place] [facility] [address] [id number] [place] [address]- 2395 14 Jan, 2014 [facility] [place] [facility] [address] [id number] [place] [address]- 0449 18 Dec, 2013 [facility] [place] [facility] [address] [id number] [place] [address] 4273 18 Dec, 2013 [facility] [place] [facility] [address] [id number] [place] [address]- 2148 10 Dec, 2013 [facility] [place] [facility] [address] [id number] [place] [address]- 6034 10 Dec, 2013 [facility] [place] [facility] [address] [id number] [place] [address]- 0211 Nov, [facility] [place] [facility] [address] [id number] [place] [address]- 7009 Nov, [facility] [place] [facility] [address] [id number] [place] [address]- 0430 Nov, [facility] [place] [facility] [address] [id number] [place] [address]- 7193 Nov, [facility] [place] [facility] [address] [id number] [place] [address]- 8749 Nov, [facility] [place] [facility] [address] [id number] [place] [address]- 7983 Oct, [facility] [place] [facility] [address] [id number] [place] [address]- 2005 Oct, [facility] [place] [facility] [address] [id number] [place] [address]- 3692 Oct, [facility] [place] [facility] [address] [id number] [place] [address]- 3658 Oct, [facility] [place] [facility] [address] [id number] [place] [address]- 8085 Sep, [facility] [place] [facility] [address] [id number] [place] [address]- 5538 Sep, [facility] [place] [facility] [address] [id number] [place] [address]- 5624 Sep, [facility] [place] [facility] [address] [id number] [place] [address]- 6308 Sep, [facility] [place] [facility] [address] [id number] [place] [address]- 6242 Sep, [facility] [place] [facility] [address] [id number] [place] [address]- 3094 Sep, [facility] [place] [facility] [address] [id number] [place] [address]- 8657 Sep, [facility] [place] [facility] [address] [id number] [place] [address]- 5255 Sep, [facility] [place] [facility] [address] [id number] [place] [address]- 4860 August, [facility] [place] [facility] [address] [id number] [place] [address]- 0592 August, [facility] [address] [id number] [place] [address]- 0493 August, [facility] [place] [facility] [address] [id number] [place] [address]- 8984 August, [facility] [place] [facility] [address] [id number] [place] [address]- 6001 August, [facility] [address] [id number] [place] [address]- 8737 August, [facility] [place] [facility] [address] [id number] [place] [address]- 2722 August, [facility] [address] [id number] [place] [address]- 8096 Jul, [facility] [place] [facility] [address] [id number] [place] [address]- 2128 Jul, [facility] [place] [facility] [address] [id number] [place] [address]- 7263 Jul, [facility] [place] [facility] [address] [id number] [place] [address]- 1169 Jul, [facility] [place] [facility] [address] [id number] [place] [address]- 9577 Jul, [facility] [place] [facility] [address] [id number] [place] [address]- 5656 Jul, [facility] [place] [facility] [address] [id number] [place] [address]- 1659 Jul, [facility] [place] [facility] [address] [id number] [place] [address]- 2399 Jul, [facility] [place] [facility] [address] [id number] [place] [address]- 8833 Jul, [facility] [place] [facility] [address] [id number] [place] [address]- 7439 Jul, [facility] [place] [facility] [address] [id number] [place] [address]- 0058 Jul, [facility] [place] [facility] [address] [id number] [place] [address]- 7258 Jul, [facility] [place] [facility] [address] [facility] [place] [id number] [place] [address]- 7213 Jun, [facility] [place] [facility] [address] [id number] [place] [address]- 3586 Jun, [facility] [place] [facility] [address] [id number] [place] [address]- 0885 Jun, [facility] [place] [facility] [address] [facility] [place] [id number] [place] [address]- 1211 Jun, [facility] [place] [facility] [address] [facility] [place] [id number] [place] [address]- 6918 Jun, [facility] [place] [facility] [address] [facility] [place] [id number] [place] [address]- 0157 May, [facility] [place] [facility] [address] [facility] [place] [id number] [place] [address]- 1231 May, [facility] [place] [facility] [address] [facility] [place] [id number] [place] [address]- 1732 May, [facility] [place] [facility] [address] [facility] [place] [id number] [place] [address]- 8315 May, [facility] [place] [facility] [address] [facility] [place] [id number] [place] [address]- 2520 May, [facility] [place] [facility] [address] [facility] [place] [id number] [place] [address]- 1893 May, [facility] [place] [facility] [address] [facility] [place] [id number] [place] [address]- 9616 May, [facility] [place] [facility] [address] [facility] [id number] [place] [address]- 8769 May, [facility] [place] [facility] [address] [id number] [place] [address]- 8109 Mar, [facility] [place] [facility] [address] [id number] [place] [address]- 3360 Mar, [facility] [place] [facility] [address] [id number] [place] [address]- 7356 Mar, [facility] [place] [facility] [address] [id number] [place] [address]- 7925 Mar, [facility] [address] [id number] [place] [address]- 7885 Mar, [facility] [place] [facility] [address] [id number] [place] [address]- 3679 Mar, [facility] [address] [id number] [place] [address]- 3341 Feb, [facility] [place] [facility] [address] [id number] [place] [address]- 1846 Feb, [facility] [place] [facility] [address] [id number] [place] [address]- 2212 Jan, [facility] [place] [facility] [address] [id number] [place] [address]- 9521 Jan, [facility] [place] [facility] [address] [id number] [place] [address]- 5284 Jan, [facility] [place] [facility] [address] [id number] [place] [address]- 3146 Jan, [facility] [place] [facility] [address] [id number] [place] [address]- 4719 Jan, [facility] [place] [facility] [address] [id number] [place] [address]- 9567 Jan, [facility] [place] [facility] [address] [id number] [place] [address] Jan, [facility] [place] [facility] [address] [id number] [place] [address]- 2606 Jan, [facility] [place] [facility] [address] [id number] [place] [address]- 1339 Jan, [facility] [place] [facility] [address] [id number] [place] [address]- 4208 Jan, [facility] [place] [facility] [address] [id number] [place] [address]- 3563 Dec, [facility] [place] [facility] [address] [id number] [place] [address]- 8918 Nov, [facility] [place] [facility] [address] [id number] [place] [address]- 4784 Nov, [facility] [place] [facility] [address] [id number] [place] [address]- 4713 Nov, [facility] [place] [facility] [address] [id number] [place] [address]- 3043 Oct, [facility] [place] [facility] [address] [id number] [place] [address]- 6346 Oct, [facility] [place] [facility] [address] [id number] [place] [address]- 6404 August, [facility] [place] [facility] [address] [id number] [place] [address]- 6343 Apr, [facility] [place] [facility] [address] [id number] [place] [address]- 0358 Apr, [facility] [place] [facility] [address] [id number] [place] [address]- 8413 Feb, [facility] [place] [facility] [address] [id number] [place] [address]- 7847 Feb, [facility] [place] [facility] [address] [id number] [place] [address]- 2959 Dec, [facility] [place] [facility] [address] [id number] [place] [address]19 Dec, [facility] [place] [facility] [address] [id number] [place] [address]- 3646 Oct, [facility] [address] [facility] [place] [id number] [place] [address]- 5079 Oct, [facility] [address] [facility] [place] [id number] [place] [address]- 1855 Oct, [facility] [address] [facility] [place] [id number] [place] [address]- 9658 Jul, IMMUNIZATIONS No Known Immunizations SOCIAL HISTORY Never Assessed REASON FOR VISIT Refill request PLAN OF CARE VITAL SIGNS MEDICATIONS Medication Instructions Dosage Frequency Start Date End Date Duration Status Singulair 10 MG Orally Once a day 1 tablet in the evening 24h Jan, 30 day(s) Active RESULTS No Results PROCEDURES [...] illness , last one in [facility] 4 years ago
--- OUTSIDE RECORDS SUMMARY | 2018-09-02 14:31 | XMS REPORT ---
Author Author STRICKLANDSOTO Carias Organization [facility] Address [address] [place] [address] Care Team Providers Care Bradder Name Role Phone SOTO STRICKLAND Unavailable PROBLEMS Type Condition ICD9-CM Code JLQ83-CU Code Onset Dates Condition Status SNOMED Code Problem Other seasonal allergic rhinitis J30.2 Active 198752780 Problem Gastroesophageal reflux disease, esophagitis presence not specified K21.9 Active 200396416 Problem Tobacco abuse Z72.0 Active 603607850 Problem Seasonal allergic rhinitis due to pollen J30.1 Active 07873917 Problem History of lupus Z87.39 Active 513865495 Problem COPD exacerbation J44.1 Active 949617084 Problem OAB (overactive bladder) N32.81 Active 688039402 Problem Morbid obesity due to excess calories E66.01 Active 058503572 Problem Dyslipidemia E78.5 Active 021819996 Problem Migraine without aura and without status migrainosus, not intractable G43.009 Active 067633638 Problem Hypothyroidism (acquired) E03.9 Active 303510622 Problem Essential hypertension I10 Active 21629255 Problem Type 2 diabetes mellitus without complication, without long-term current use of insulin E11.9 Active 853366997 Problem Gastroesophageal reflux disease without esophagitis K21.9 Active 251357770 Problem Chronic pain syndrome G89.4 Active 666930051 Problem Paranoid schizophrenia F20.0 Active 10800398 Problem Primary insomnia F51.01 Active 7996221 Problem DM neuro manif type II E11.49 Active 55104926 Problem Depression with anxiety F41.8 Active 246670827 Problem Seasonal allergic rhinitis due to other allergic trigger J30.89 Active 382848382 Problem Menopausal syndrome (hot flashes) N95.1 Active 699547253 Problem Chronic obstructive pulmonary disease, unspecified COPD type J44.9 Active 30916767 Problem Schizoaffective disorder, depressive type F25.1 Active 48221443 Problem Other allergic rhinitis J30.89 Active 396027100 ALLERGIES No Information ENCOUNTERS Encounter Location Date Diagnosis [facility] [id number] [address] Nov, [facility] [id number] [place] [address] 58077- 1638 Oct, [facility] [id number] [place] [address] 16976- 1186 Sep, Schizoaffective disorder, depressive type F25.1 [facility] [id number] [place] [address] 33121- 3665 Sep, [facility] [id number] [place] [address] 91655- 5437 Sep, Paranoid schizophrenia F20.0 [facility] [id number] [place] [address] 92181- 3352 Sep, [facility] [id number] [place] [address] 52867- 9725 Sep, Hypothyroidism (acquired) E03.9 [facility] [id number] [place] [address] 53798- 3861 Sep, [facility] [id number] [place] [address] 74377- 8362 August, Schizoaffective disorder, depressive type F25.1 [facility] [id number] [address] August, [facility] [id number] [place] [address] 27648- 7938 August, [facility] [id number] [place] [address] 72462- 5494 August, [facility] [id number] [place] [address] 76024- 0324 August, Paranoid schizophrenia F20.0 [facility] [id number] [place] [address] 49824- 9771 August, History of lupus Z87.39 and Chronic pain syndrome G89.4 [place] [address] 61829- 0774 August, [facility] [address] 7[address]80 -2875 August, Seasonal allergic rhinitis, unspecified trigger J30.2 and BMI 45.0-49.9, adult Z68.42 [place] [address] 52389- 8041 Jul, Schizoaffective disorder, depressive type F25.1 [place] [address] 28916- 2763 Jul, [place] [address] 88898- 1876 Jul, Hypothyroidism (acquired) E03.9 [place] [address] 31078- 4926 Jul, Chronic obstructive pulmonary disease, unspecified COPD type J44.9 and Type 2 diabetes mellitus without complication, without long-term current use of insulin E11.9 [place] [address] 29718- 1646 Jul, Paranoid schizophrenia F20.0 [place] [address] 26104- 1421 Jun, Hypothyroidism (acquired) E03.9 and Seasonal allergic rhinitis due to pollen J30.1 [facility] [address] [address]87 -5265 Jun, Shortness of breath at rest R06.02 ; COPD exacerbation J44.1 and BMI 45.0-49.9, adult Z68.42 [place] [address] 73123- 8354 Jun, [place] [address] 23556- 2217 Jun, Paranoid schizophrenia F20.0 ; Depression with anxiety F41.8 and BMI 45.0-49.9, adult Z68.42 [facility] [address] [id number]- 4799 Jun, Schizoaffective disorder, depressive type F25.1 [facility] [address] [id number] Jun, Dental caries K02.9 [facility] [address] 89180- 0505 Jun, Paranoid schizophrenia F20.0 [place] [address] 59912- 3950 May, Migraine without aura and without status migrainosus, not intractable G43.009 ; DM neuro manif type II E11.49 and Type 2 diabetes mellitus without complication, without long-term current use of insulin E11.9 [facility] [address] 60155- 5714 May, Migraine without aura and without status migrainosus, not intractable G43.009 [place] [address] 24148- 0007 May, Depression with anxiety F41.8 [facility] [id number] [place] [address] [id number] May, [facility] [address] 01926- 8360 May, [facility] [address] 24866- 4137 May, [place] [address] 66732- 7368 May, Hypothyroidism (acquired) E03.9 [facility] [address] 49083- 6721 May, Paranoid schizophrenia F20.0 [facility] [id number] [place] [address] 68288- 1065 08 May, 2017 Type 2 diabetes mellitus [...] N32.81 and Controlled substance agreement signed Z79.899 [place] [address] 65432- 5789 02 May, 2017 Controlled substance agreement signed Z79.899 [place] [address] 98412- 9432 Apr, [facility] [address] [id number] Apr, Dental examination Z01.20 [place] [id number] [place] [address] 42326- 9655 Apr, Paranoid schizophrenia F20.0 [place] [address] 16384- 6494 Apr, Hypertension, unspecified type I10 [facility] [address] 27315- 5192 Apr, Paranoid schizophrenia F20.0 [place] [address] 02508- 3428 05 Apr, 2017 [place] [address] 78018- 6197 Apr, Tobacco abuse Z72.0 [place] [address] [place] [address] 6677 Apr, [facility] [id number] [place] [address] 23012- 0812 Mar, [facility] [id number] [place] [address] 25775- 0795 Mar, Paranoid schizophrenia F20.0 and BMI 45.0-49.9, adult Z68.42 [facility] [id number] [place] [address] 15109- 2302 Mar, Schizoaffective disorder, depressive type F25.1 [facility] [address] 85383- 3259 Mar, [facility] [id number] [place] [address] 82574- 9858 Mar, Hypothyroidism, unspecified type E03.9 [facility] [id number] [place] [address] 62509- 6255 Mar, Schizoaffective disorder, depressive type F25.1 [facility] [id number] [place] [address] 39693 -5484 Feb, Gastroenteritis K52.9 and BMI 45.0-49.9, adult Z68.42 [facility] [id number] [place] [address] 08000- 7605 Feb, [facility] [id number] [place] [address] 03930- 1609 Feb, [facility] [id number] [place] [address] 30614- 3379 Feb, [facility] [id number] [place] [address] 66716- 3584 16 Feb, 2017 [facility] [id number] [place] [address] 28931- 5621 10 Feb, 2017 Paranoid schizophrenia F20.0 [facility] [address] [place] [address]- 9522 Feb, Gastroesophageal reflux disease without esophagitis K21.9 ; Other seasonal allergic rhinitis J30.2 ; Other allergic rhinitis J30.89 ; Tobacco abuse Z72.0 and BMI 40.0-44.9, adult Z68.41 [place] [id number] [place] [address] 80595- 8252 Feb, Onychomycosis B35.1 ; Callus of foot L84 and DM neuro manif type II E11.49 [place] [id number] [place] [address] 98344- 5724 Jan, Chronic allergic rhinitis J30.9 [place] [address] 55434- 6966 Jan, [place] [address] 08255- 6430 Jan, Schizoaffective disorder, depressive type F25.1 [place] [address] 07854- 9751 Jan, [facility] [address] 66141 -4006 Jan, Sore throat J02.9 and Seasonal allergic rhinitis due to other allergic trigger J30.89 [place] [id number] [place] [address] 19321- 4748 Jan, [facility] [address] 39382- 5854 Jan, [facility] [address] 54460 -9521 Jan, Chronic allergic rhinitis J30.9 [facility] [id number] [place] [address] 81551- 9712 Dec, Paranoid schizophrenia F20.0 ; Primary insomnia F51.01 and Schizoaffective disorder, depressive type F25.1 [place] [address] [place] [address]- 8506 Dec, Chronic pain syndrome G89.4 ; Cervicalgia of occipito- atlanto-axial region M54.2 ; Menopausal syndrome (hot flashes) N95.1 and Encounter for immunization Z23 [facility] [id number] [place] [address] 81559- 7211 14 Dec, 2016 [place] [address] 34561- 7972 Dec, [place] [id number] [place] [address] 56352- 2409 08 Dec, 2016 Paranoid schizophrenia F20.0 [place] [id number] [place] [address] 09238- 3079 Dec, Schizoaffective disorder, depressive type F25.1 [place] [id number] [place] [address] 07622- 8892 Nov, Hypothyroidism, unspecified type E03.9 [facility] [id number] [place] [address] 26966 -7826 Nov, Acute seasonal allergic rhinitis due to other allergen J30.89 [place] [id number] [place] [address] 36081- 2925 Nov, [place] [id number] [place] [address] 88181- 6677 Nov, Hypothyroidism, unspecified type E03.9 and Other elevated white blood cell (WBC) count D72.828 [place] [id number] [place] [address] 76182- 7381 Nov, Schizoaffective disorder, depressive type F25.1 [facility] [id number] [place] [address] 43077- 5527 Nov, Paranoid schizophrenia F20.0 [facility] [id number] [place] [address] 75814- 3271 11 Aug, 2017 Type 2 diabetes mellitus without complication, without long- term current use of insulin E11.9 ; Morbid obesity due to excess calories E66.01 and Chronic pain syndrome G89.4 [place] [id number] [place] [address] 06350- 4015 Oct, Paranoid schizophrenia F20.0 [place] [id number] [place] [address] 12266- 4168 Oct, [place] [id number] [place] [address] 17588- 4226 Oct, Schizoaffective disorder, depressive type F25.1 [place] [address] 02692- 2110 Oct, Hypothyroidism, unspecified type E03.9 and Other elevated white blood cell (WBC) count D72.828 [place] [id number] [place] [address] 81643- 9790 Oct, Morbid obesity due to excess calories E66.01 ; Chronic obstructive pulmonary disease, unspecified COPD type J44.9 ; History of lupus Z87.39 ; Hypothyroidism, unspecified type E03.9 ; Gastroesophageal reflux disease without esophagitis K21.9 ; Primary insomnia F51.01 and Chronic pain syndrome G89.4 [place] [id number] [place] [address] 69572- 2663 Sep, [place] [id number] [place] [address] 97173- 2614 Sep, [place] [id number] [place] [address] 15072- 4541 Sep, [place] [id number] [place] [address] 86056- 0746 Sep, Paranoid schizophrenia F20.0 [place] [id number] [place] [address] 90266- 8426 Sep, [place] [id number] [place] [address] 97609- 6137 Sep, Paranoid schizophrenia F20.0 [facility] [address] [address]- 0568 Sep, [facility] [id number] [place] [address] 13893- 1040 August, Paranoid schizophrenia F20.0 [facility] [id number] [place] [address] 86823- 1945 Jul, [facility] [id number] [place] [address] 58198- 5649 Jul, Type 2 diabetes mellitus without complication, without long- term current use of insulin E11.9 ; Morbid obesity due to excess calories E66.01 ; Depression with anxiety F41.8 ; Hypothyroidism, unspecified type E03.9 ; Seasonal allergic rhinitis due to other allergic trigger J30.89 ; Pain, dental K08.89 and Gastroesophageal reflux disease without esophagitis K21.9 [facility] [id number] [place] [address] [id number] Jul, Dental examination Z01.20 [place] [id number] [place] [address] 37519- 8034 07 Jul, 2016 Paranoid schizophrenia F20.0 [place] [id number] [place] [address] 73501- 4849 13 Jun, 2016 Paranoid schizophrenia F20.0 and Depression with anxiety F41.8 [place] [id number] [place] [address] 44875- 6793 Jun, Paranoid schizophrenia F20.0 and Depression with anxiety F41.8 [facility] [address] [address]- 1864 Jun, [place] [id number] [place] [address] 75295- 9976 Jun, [facility] [address] [place] [address] -2164 Jun, Seasonal allergic rhinitis due to other allergic trigger J30.89 [facility] [id number] [place] [address] 56126 -9350 25 May, 2016 Sore throat J02.9 ; Other viral agents as the cause of diseases classified elsewhere B97.89 and Acute upper respiratory infection, unspecified J06.9 [place] [id number] [place] [address] 51308- 0854 08 May, 2016 Paranoid schizophrenia F20.0 and Depression with anxiety F41.8 [place] [id number] [place] [address] 26537- 8366 Apr, Other seasonal allergic rhinitis J30.2 [place] [address] 01736- 0693 Apr, Paranoid schizophrenia F20.0 and Depression with anxiety F41.8 [facility] [place] [id number] [place] [address] 61707 -4826 Apr, Bronchitis J40 and Sore throat J02.9 [place] [id number] [place] [address] 58679- 6089 Apr, Type 2 diabetes mellitus without complication, without long- term current use of insulin E11.9 [facility] [place] [id number] [place] [address] 37123 -5689 Apr, Bronchitis J40 [place] [id number] [place] [address] 90063- 8202 Apr, [place] [id number] [place] [address] 50302- 5962 Apr, [place] [id number] [place] [address] 06409- 6724 Mar, Type 2 diabetes mellitus without complication, [...] R60.9 and Other seasonal allergic rhinitis J30.2 [place] [address] 82343- 2694 Mar, Paranoid schizophrenia F20.0 and Depression with anxiety F41.8 [place] [address] 66108- 0636 Feb, [place] [address] 29472- 1023 Feb, [place] [address] 73570- 7965 Feb, [place] [address] 53676- 6069 Feb, [place] [address] 79852- 1677 Feb, Type 2 diabetes mellitus without complication, without long- term current use of insulin E11.9 ; ARIAS on CPAP G47.33 and Preoperative evaluation to rule out surgical contraindication Z01.818 [place] [address] 30184- 5789 Feb, Paranoid schizophrenia F20.0 and Depression with anxiety F41.8 [place] [address] 05593- 0612 Jan, [place] [address] 94370- 1290 Jan, Paranoid schizophrenia F20.0 and Depression with anxiety F41.8 [place] [address] 60656- 4477 Jan, [place] [address] 96837- 0165 Jan, Muscle strain T14.8 [place] [address] [place] [address]- 1342 Jan, Paranoid schizophrenia F20.0 [facility] [id number] [place] [address] 19439- 6099 Jan, [facility] [id number] [place] [address] 23537- 6275 Jan, Paranoid schizophrenia F20.0 and Depression with anxiety F41.8 [facility] [id number] [place] [address] 47054- 6910 Jan, [facility] [id number] [place] [address] 53028- 5340 Jan, [facility] [id number] [place] [address] 06891- 2084 28 Dec, 2015 [facility] [id number] [place] [address] 97365- 2424 23 Dec, 2015 Paranoid schizophrenia F20.0 [facility] [id number] [place] [address] 01875- 0978 16 Dec, 2015 Paranoid schizophrenia F20.0 and Depression with anxiety F41.8 [facility] [id number] [place] [address] 65691- 9619 Nov, [facility] [id number] [place] [address] 69718- 6133 Nov, Paranoid schizophrenia F20.0 [facility] [id number] [place] [address] 50758- 3850 Nov, Paranoid schizophrenia F20.0 and Depression with anxiety F41.8 [facility] [address] [address]- 7278 05 Nov, 2015 Type 2 diabetes mellitus without complication, without long- term current use of insulin E11.9 ; Paranoid schizophrenia F20.0 ; Chronic obstructive pulmonary disease, unspecified COPD type J44.9 ; Morbid obesity due to excess calories E66.01 and Parkinsonian tremor G20 [facility] [id number] [place] [address] 94154- 6999 Nov, [place] [id number] [place] [address] 07823- 3314 Oct, Paranoid schizophrenia F20.0 [place] [id number] [place] [address] 04887- 1936 Oct, Paranoid schizophrenia F20.0 [place] [id number] [place] [address] 62800- 9453 Oct, Paranoid schizophrenia F20.0 and Depression with anxiety F41.8 [place] [id number] [place] [address] 06320- 4009 Oct, [place] [id number] [place] [address] 74121- 0273 Oct, Paranoid schizophrenia F20.0 and Depression with anxiety F41.8 [place] [id number] [place] [address] 10336- 7263 Oct, Nasal sore J34.89 [place] [id number] [place] [address] 76133- 8990 Oct, Type 2 diabetes mellitus without complication, without long- term current use of insulin E11.9 ; Depression with anxiety F41.8 ; Hypothyroidism, unspecified type E03.9 and History of lupus Z87.39 [place] [address] [place] [address] 44855- 7421 Oct, [place] [id number] [place] [address] 20859- 4534 Oct, Type 2 diabetes mellitus without complication, [...] edema R60.9 and History of lupus Z87.39 [facility] [id number] [place] [address] 11151- 5888 Feb, [facility] [id number] [place] [address] 33738- 7453 Jan, [facility] [address] 64671- 6719 Jan, [facility] [id number] [place] [address] 84044- 2318 Jan, [facility] [id number] [place] [address] 50859- 6337 Dec, [facility] [id number] [place] [address] 49736- 0319 Nov, [facility] [id number] [place] [address] 66180- 4944 Nov, [facility] [id number] [place] [address] 17466- 1798 Oct, [facility] [id number] [place] [address] 34925- 5528 Oct, [facility] [id number] [place] [address] 06811- 1165 Oct, [facility] [id number] [place] [address] 01488- 1713 Sep, Allergic rhinitis 477.9 [facility] [id number] [place] [address] 41312- 7570 Sep, Rhinitis, allergic 477.9 [facility] [id number] [place] [address] 51143- 6495 Sep, Rhinitis, allergic 477.9 [facility] [id number] [place] [address] 53204- 9088 Sep, [facility] [place] [facility] [address] [id number] [place] [address]- 7094 August, [facility] [place] [facility] [address] [id number] [place] [address]- 7417 August, [facility] [place] [facility] [address] [id number] [place] [address]- 6043 August, [facility] [place] [facility] [address] [id number] [place] [address] Jul, [facility] [place] [facility] [address] [id number] [place] [address] Jul, [facility] [place] [facility] [address] [id number] [place] [address] Jul, [facility] [place] [facility] [address] [id number] [place] [address] Jun, [facility] [place] [facility] [address] [id number] [place] [address] Jun, [facility] [place] [facility] [address] [id number] [place] [address] Jun, [facility] [place] [facility] [address] [id number] [place] [address] Jun, [facility] [place] [facility] [address] [id number], [place] [address] Jun, [facility] [place] [facility] [address] [id number], [place] [address] Jun, [facility] [place] [facility] [address] [address] [id number] [place] [address] Jun, [facility] [place] [facility] [address] [id number] [place] [address] Jun, [facility] [place] [facility] [address] [id number] [place] [address] May, [facility] [place] [facility] [address] [id number] [place] [address] 17 May, 2014 [facility] [address] [id number] [place] [address]6 May, 2014 [facility] [place] [facility] [address] [id number] [place] [address] 9466 May, 2014 [facility] [address] [id number] [place] [address] Apr, [facility] [place] [facility] [address] [id number] [place] [address] Mar, [facility] [address] [id number] [place] [address] Mar, [facility] [place] [facility] [address] [id number] [place] [address] Mar, [facility] [place] [facility] [address] [id number] [place] [address] Mar, [facility] [address] [id number] [place] [address] Mar, [facility] [place] [facility] [address] [id number] [place] [address] 4196 Mar, [facility] [address] [facility]NOTE [facility] [id number] [place] [address] Mar, [facility] [place] [facility] [address] [id number] [place] [address] 2144 Mar, [facility] [place] [facility] [address] [id number] [place] [address] 0490 Mar, [facility] [place] [facility] [address] [id number] [place] [address] 9784 Feb, [facility] [place] [facility] [address] [id number] [place] [address]- 8246 Feb, [facility] [place] [facility] [address] [id number] [place] [address] Feb, [facility] [place] [facility] [address] [id number] [place] [address]28 17 Feb, 2014 [facility] [place] [facility] [address] [id number] [place] [address]- 6[address] 14 Feb, 2014 [facility] [place] [facility] [address] [id number] [place] [address]- 7443 14 Feb, 2014 [facility] [place] [facility] [address] [id number] [place] [address]- 5351 Feb, [facility] [place] [facility] [address] [id number] [place] [address] 6932 Feb, [facility] [place] [facility] [address] [id number] [place] [address]- 4272 23 Jan, 2014 [facility] [place] [facility] [address] [id number] [place] [address]- 7348 23 Jan, 2014 [facility] [place] [facility] [address] [id number] [place] [address]- 9374 16 Jan, 2014 [facility] [place] [facility] [address] [id number] [place] [address]- 4870 16 Jan, 2014 [facility] [place] [facility] [address] [id number], [place] [address] 15 Jan, 2014 [facility] [place] [facility] [address] [id number], [place] [address] 15 Jan, 2014 [facility] [place] [facility] [address] [id number], [place] [address] 14 Jan, 2014 [facility] [place] [facility] [address] [id number] [place] [address]- 8021 14 Jan, 2014 [facility] [place] [facility] [address] [id number] [place] [address]- 7943 14 Jan, 2014 [facility] [place] [facility] [address] [id number], [place] [address] 14 Jan, 2014 [facility] [place] [facility] [address] [id number], [place] [address] Dec, [facility] [place] [facility] [address] [id number] [place] [address] 2700 18 Dec, 2013 [facility] [place] [facility] [address] [id number] [place] [address] 1359 Dec, [facility] [place] [facility] [address] [id number] [place] [address] 4261 Dec, [facility] [place] [facility] [address] [id number] [place] [address]- 1777 Nov, [facility] [place] [facility] [address] [id number] [place] [address] 2988 Nov, [facility] [place] [facility] [address] [id number] [place] [address]- 4473 Nov, [facility] [place] [facility] [address] [id number] [place] [address] 8733 Nov, [facility] [place] [facility] [address] [id number] [place] [address]- 8489 Nov, [facility] [place] [facility] [address] [id number] [place] [address] 9116 Oct, [facility] [place] [facility] [address] [id number] [place] [address]- 6290 Oct, [facility] [place] [facility] [address] [id number] [place] [address] 3065 Oct, [facility] [place] [facility] [address] [id number] [place] [address]- 6732 Oct, [facility] [place] [facility] [address] [id number] [place] [address]- 0919 Sep, [facility] [place] [facility] [address] [id number] [place] [address] 4514 Sep, [facility] [place] [facility] [address] [id number] [place] [address]- 2282 Sep, [facility] [place] [facility] [address] [id number] [place] [address]- 3044 Sep, [facility] [place] [facility] [address] [id number] [place] [address]- 0695 Sep, [facility] [place] [facility] [address] [id number] [place] [address]- 7798 Sep, [facility] [place] [facility] [address] [id number] [place] [address]- 4851 Sep, [facility] [place] [facility] [address] [id number] [place] [address]- 5762 Sep, [facility] [place] [facility] [address] [id number] [place] [address] 4133 August, [facility] [place] [facility] [address] [id number] [place] [address] 7970 August, [facility] [place] [facility] [address] [id number] [place] [address]- 1700 August, [facility] [place] [facility] [address] [id number] [place] [address] 2409 August, [facility] [place] [facility] [address] [id number] [place] [address]- 9855 August, [facility] [place] [facility] [address] [id number] [place] [address] 7212 August, [facility] [place] [facility] [address] [id number] [place] [address]- 0209 August, [facility] [place] [facility] [address] [id number] [place] [address] 5950 Jul, [facility] [place] [facility] [address] [id number] [place] [address]- 2243 Jul, [facility] [place] [facility] [address] [id number] [place] [address]- 1040 Jul, [facility] [place] [facility] [address] [id number] [place] [address]- 1181 Jul, [facility] [place] [facility] [address] [id number] [place] [address]- 0832 Jul, [facility] [place] [facility] [address] [id number] [place] [address]- 2310 Jul, [facility] [place] [facility] [address] [id number] [place] [address]- 8969 Jul, [facility] [place] [facility] [address] [id number] [place] [address]- 3022 Jul, [facility] [place] [facility] [address] [id number] [place] [address]- 0333 Jul, [facility] [place] [facility] [address] [id number] [place] [address]- 5549 Jul, [facility] [place] [facility] [address] [id number] [place] [address]- 3353 Jul, [facility] [place] [facility] [address] [id number] [place] [address]- 3970 Jul, [facility] [place] [facility] [address] [id number] [place] [address]- 5784 Jun, [facility] [place] [facility] [address] [id number] [place] [address]- 6010 Jun, [facility] [place] [facility] [address] [id number] [place] [address]- 6984 Jun, [facility] [place] [facility] [address] [id number] [place] [address]- 8378 Jun, [facility] [place] [facility] [address] [id number] [place] [address]- 9749 Jun, [facility] [place] [facility] [address] [id number] [place] [address] 1940 May, [facility] [place] [facility] [address] [id number] [place] [address]- 3858 May, [facility] [place] [facility] [address] [id number] [place] [address]- 1533 May, 2013 [facility] [place] [facility] [address] [id number] [place] [address]- 6042 May, 2013 [facility] [place] [facility] [address] [id number] [place] [address] May, 2013 [facility] [place] [facility] [address] [id number] [place] [address]- 0086 May, 2013 [facility] [place] [facility] [address] [id number] [place] [address]- 8676 May, [facility] [place] [facility] [address] [id number] [place] [address]- 1574 May, [facility] [place] [facility] [address] [facility]] [id number] [place] [address]- 0066 Mar, [facility] [place] [facility] [address] [facility]] [id number] [place] [address]- 3406 Mar, [facility] [place] [facility] [address] [id number] [place] [address]- 7330 Mar, [facility] [place] [facility] [address] [facility]] [id number] [place] [address]- 3067 Mar, [facility] [place] [facility] [address] [facility]] [id number] [place] [address] Mar, [facility] [place] [facility] [address] [facility]] [id number] [place] [address]- 8523 Mar, [facility] [place] [facility] [address] [id number] [place] [address]- 3598 Feb, [facility] [place] [facility] [address] [id number] [place] [address]- 9386 Feb, [facility] [place] [facility] [address] [facility]] [id number] [place] [address]- 3408 Jan, [facility] [place] [facility] [address] [id number] [place] [address]- 3152 Jan, [facility] [place] [facility] [address] [id number] [place] [address]- 9289 Jan, [facility] [place] [facility] [address] [id number] [place] [address]- 4366 Jan, [facility] [place] [facility] [address] [id number] [place] [address]- 0913 Jan, [facility] [place] [facility] [address] [id number] [place] [address]- 8945 Jan, [facility] [place] [facility] [address] [id number] [place] [address]- 8539 Jan, [facility] [place] [facility] [address] [id number] [place] [address]- 7671 Jan, [facility] [place] [facility] [address] [id number] [place] [address]- 4920 Jan, [facility] [place] [facility] [address] [id number] [place] [address]- 6049 Jan, [facility] [place] [facility] [address] [id number] [place] [address]- 8692 Dec, [facility] [place] [facility] [address] [id number] [place] [address]- 1688 Nov, [facility] [place] [facility] [address] [id number], [place] [address]- 2165 Nov, [facility] [place] [facility] [address] [id number], [place] [address]- 2317 Nov, [facility] [place] [facility] [address] [id number] [place] [address]- 5531 Oct, [facility] [place] [facility] [address] [id number], [place] [address]- 7222 Oct, [facility] [place] [facility] [address] [id number] [place] [address]- 5386 August, [facility] [place] [facility] [address] [id number] [id number] [address] Apr, [facility] [id number] [address] Apr, [facility] [id number] [id number] [address] Feb, [facility] [id number] [address]- 6465 Feb, [facility] [id number] [address]- 1076 Dec, [facility] [id number] [address]38 Dec, [facility] [id number] [address]- 0828 Oct, [facility] [id number] [address]12 Oct, [facility] [address] [id number], [place] [address]- 2092 Oct, [facility] [address] [id number], [place] [address]- 1102 Jul, IMMUNIZATIONS No Known Immunizations SOCIAL HISTORY [...]
--- OUTSIDE RECORDS SUMMARY | 2018-09-02 14:32 | XMS REPORT ---
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 Name Role Phone UMESH PINEDA Unavailable PROBLEMS Type Condition ICD9-CM Code AOV28-YU Code Onset Dates Condition Status SNOMED Code Problem Other seasonal allergic rhinitis J30.2 Active 523965084 Problem Gastroesophageal reflux disease, esophagitis presence not specified K21.9 Active 355036483 Problem Tobacco abuse Z72.0 Active 108419934 Problem Seasonal allergic rhinitis due to pollen J30.1 Active 38587354 Problem History of lupus Z87.39 Active 162634467 Problem COPD exacerbation J44.1 Active 862942500 Problem OAB (overactive bladder) N32.81 Active 588450507 Problem Morbid obesity due to excess calories E66.01 Active 605418283 Problem Dyslipidemia E78.5 Active 176925202 Problem Migraine without aura and without status migrainosus, not intractable G43.009 Active 942219682 Problem Hypothyroidism (acquired) E03.9 Active 483759098 Problem Essential hypertension I10 Active 18063126 Problem Type 2 diabetes mellitus without complication, without long-term current use of insulin E11.9 Active 273741479 Problem Gastroesophageal reflux disease without esophagitis K21.9 Active 229873794 Problem Chronic pain syndrome G89.4 Active 823299177 Problem Paranoid schizophrenia F20.0 Active 30130521 Problem Primary insomnia F51.01 Active 1895546 Problem DM neuro manif type II E11.49 Active 08499665 Problem Depression with anxiety F41.8 Active 816396397 Problem Seasonal allergic rhinitis due to other allergic trigger J30.89 Active 070691621 Problem Menopausal syndrome (hot flashes) N95.1 Active 020843198 Problem Chronic obstructive pulmonary disease, unspecified COPD type J44.9 Active 36676477 Problem Schizoaffective disorder, depressive type F25.1 Active 62404857 Problem Other allergic rhinitis J30.89 Active 467747096 ALLERGIES No Information ENCOUNTERS Encounter Location Date Diagnosis [facility] [address], [place] [address] Nov, [facility] [id number] [place] [address] 14092- 6881 Oct, [facility] [id number] [place] [address] 75379- 4384 Sep, Paranoid schizophrenia F20.0 [facility] [id number] [place] [address] 51228- 8724 Sep, [facility] [id number] [place] [address] 05684- 4298 Sep, Hypothyroidism (acquired) E03.9 [facility] [id number] [place] [address] 33821- 7946 Sep, [facility] [address] 77907- 8958 August, Schizoaffective disorder, depressive type F25.1 [facility] [id number] [place] [address] 41041- 1368 August, [facility] [id number] [place] [address] 43739- 8667 August, [facility] [id number] [place] [address] 54876- 4628 August, [facility] [id number] [place] [address] 34133- 7583 August, Paranoid schizophrenia F20.0 [facility] [address] [place] [address] 60234- 9996 August, History of lupus Z87.39 and Chronic pain syndrome G89.4 [facility] [address] [place] [address] 38403- 0397 August, [facility] [id number] [place] [address] 90210 -2185 August, Seasonal allergic rhinitis, unspecified trigger J30.2 and BMI 45.0-49.9, adult Z68.42 [place] [address] 78822- 6541 Jul, Schizoaffective disorder, depressive type F25.1 [place] [address] 89779- 7137 Jul, [place] [address] 70715- 1691 Jul, Hypothyroidism (acquired) E03.9 [place] [address] 45075- 5339 11 Jul, 2017 Chronic obstructive pulmonary disease, unspecified COPD type J44.9 and Type 2 diabetes mellitus without complication, without long-term current use of insulin E11.9 [place] [address] 35542- 1736 Jul, Paranoid schizophrenia F20.0 [place] [address] 77187- 1078 Jun, Hypothyroidism (acquired) E03.9 and Seasonal allergic rhinitis due to pollen J30.1 [facility] [id number] [place] [address] 81707 -9895 Jun, Shortness of breath at rest R06.02 ; COPD exacerbation J44.1 and BMI 45.0-49.9, adult Z68.42 [place] [id number] [place] [address] 06807- 6089 Jun, [place] [address] 43343- 0301 Jun, Paranoid schizophrenia F20.0 ; Depression with anxiety F41.8 and BMI 45.0-49.9, adult Z68.42 [place] [address] 32654- 5796 Jun, Schizoaffective disorder, depressive type F25.1 [facility] [address] [place] [address] [id number] Jun, Dental caries K02.9 [facility] [id number] [place] [address] 1534 Jun, Paranoid schizophrenia F20.0 [facility] [id number] [place] [address] May, Migraine without aura and without status migrainosus, not intractable G43.009 ; DM neuro manif type II E11.49 and Type 2 diabetes mellitus without complication, without long-term current use of insulin E11.9 [facility] [id number] [place] [address] May, Migraine without aura and without status migrainosus, not intractable G43.009 [facility] [id number] [place] [address] 8492 May, Depression with anxiety F41.8 [facility] [address] [place] [address] [id number] May, [facility] [id number] [place] [address]- 2785 May, [facility] [id number] [place] [address] 56639- 7793 May, [facility] [id number] [place] [address] 9218 May, Hypothyroidism (acquired) E03.9 [facility] [address] [place] [address] 13367- 5691 May, Paranoid schizophrenia F20.0 [facility] [id number] [place] [address]- 5624 May, Type 2 diabetes mellitus without complication, [...] Controlled substance agreement signed Z79.899 [place] [address] 35103- 1719 May, Controlled substance agreement signed Z79.899 [place] [address] 14951- 4880 Apr, [facility] [address] [id number] Apr, Dental examination Z01.20 [place] [address] 72673- 2032 Apr, Paranoid schizophrenia F20.0 [place] [address] 48798- 8050 Apr, Hypertension, unspecified type I10 [place] [address] 25036- 3603 Apr, Paranoid schizophrenia F20.0 [place] [address] 59692- 1455 Apr, [place] [address] 85858- 0162 Apr, Tobacco abuse Z72.0 [place] [address] 04475- 3006 Apr, [place] [address] 90229- 8794 Mar, [place] [address] 78321- 8131 Mar, 2017 Paranoid schizophrenia F20.0 and BMI 45.0-49.9, adult Z68.42 [facility] [id number] [place] [address] 25895- 0226 15 Mar, 2017 Schizoaffective disorder, depressive type F25.1 [place] [id number] [place] [address] 14593- 1028 Mar, [facility] [address] 74402- 0554 Mar, Schizoaffective disorder, depressive type F25.1 [place] [address] 68237- 0275 Mar, Hypothyroidism, unspecified type E03.9 [facility] [id number] [place] [address] 18234 -7569 Feb, Gastroenteritis K52.9 and BMI 45.0-49.9, adult Z68.42 [place] [id number] [place] [address] 72855- 3416 Feb, [place] [address] 70213- 7898 Feb, [place] [id number] [place] [address] 03273- 4647 Feb, [place] [id number] [place] [address] 72208- 4243 16 Feb, 2017 [place] [id number] [place] [address] 70593- 5069 10 Feb, 2017 Paranoid schizophrenia F20.0 [place] [address] 22357- 8626 06 Feb, 2017 Gastroesophageal reflux disease without esophagitis K21.9 ; Other seasonal allergic rhinitis J30.2 ; Other allergic rhinitis J30.89 ; Tobacco abuse Z72.0 and BMI 40.0-44.9, adult Z68.41 [place] [address] 11505- 4855 Feb, Onychomycosis B35.1 ; Callus of foot L84 and DM neuro manif type II E11.49 [place] [address] 16939- 4513 Jan, Chronic allergic rhinitis J30.9 [place] [address] 43565- 8555 16 Jan, 2017 [place] [address] 07630- 2824 Jan, Schizoaffective disorder, depressive type F25.1 [place] [address] 57734- 8552 Jan, [facility] [place] [address] 43557 -3693 Jan, Sore throat J02.9 and Seasonal allergic rhinitis due to other allergic trigger J30.89 [place] [address] 99052- 1877 Jan, [place] [address] 72753- 1612 Jan, [facility] [place] [address] 09298 -7396 Jan, Chronic allergic rhinitis J30.9 [place] [address] 41625- 7431 Dec, Paranoid schizophrenia F20.0 ; Primary insomnia F51.01 and Schizoaffective disorder, depressive type F25.1 [place] [address] 92893- 3851 Dec, Chronic pain syndrome G89.4 ; Cervicalgia of occipito- atlanto-axial region M54.2 ; Menopausal syndrome (hot flashes) N95.1 and Encounter for immunization Z23 [place] [address] [place] [address]- 4165 14 Dec, 2016 [facility] [id number] [place] [address] 68587- 3664 13 Dec, 2016 [place] [id number] [place] [address] 42602- 5736 08 Dec, 2016 Paranoid schizophrenia F20.0 [place] [id number] [place] [address] 27039- 2723 Dec, Schizoaffective disorder, depressive type F25.1 [place] [id number] [place] [address] 41158- 9714 Nov, Hypothyroidism, unspecified type E03.9 [facility] [id number] [place] [address] 36542 -9196 Nov, Acute seasonal allergic rhinitis due to other allergen J30.89 [place] [id number] [place] [address] 51932- 0409 Nov, [place] [id number] [place] [address] 10491- 6277 Nov, Hypothyroidism, unspecified type E03.9 and Other elevated white blood cell (WBC) count D72.828 [place] [id number] [place] [address] 58953- 6329 Nov, Schizoaffective disorder, depressive type F25.1 [place] [id number] [place] [address] 86277- 1363 Nov, Paranoid schizophrenia F20.0 [place] [id number] [place] [address] 25436- 5008 Nov, Type 2 diabetes mellitus without complication, without long- term current use of insulin E11.9 ; Morbid obesity due to excess calories E66.01 and Chronic pain syndrome G89.4 [place] [id number] [place] [address] 26792- 6860 Oct, Paranoid schizophrenia F20.0 [place] [address], [place] [address]- 2008 Oct, [place] [id number] [place] [address] 93794- 5150 Oct, Schizoaffective disorder, depressive type F25.1 [place] [address] [address]- 0127 Oct, Hypothyroidism, unspecified type E03.9 and Other elevated white blood cell (WBC) count D72.828 [place] [address] [address]- 6295 Oct, Morbid obesity due to excess calories E66.01 ; Chronic obstructive pulmonary disease, unspecified COPD type J44.9 ; History of lupus Z87.39 ; Hypothyroidism, unspecified type E03.9 ; Gastroesophageal reflux disease without esophagitis K21.9 ; Primary insomnia F51.01 and Chronic pain syndrome G89.4 [place] [id number] [place] [address] 47821- 5400 Sep, [place] [id number] [place] [address] 90619- 4300 Sep, [place] [id number] [place] [address] 18225- 4416 Sep, [place] [address], [place] [address]- 9272 Sep, Paranoid schizophrenia F20.0 [place] [address] [address]- 2148 Sep, [place] [address], [place] [address]- 8274 Sep, Paranoid schizophrenia F20.0 [facility] [address], [place] [address]- 1771 Sep, [place] [address], [place] [address]- 6521 August, Paranoid schizophrenia F20.0 [place] [address] [place] [address] 35089- 8502 Jul, [place] [id number] [place] [address] 71080- 0668 Jul, Type 2 diabetes mellitus without complication, without long- term current use of insulin E11.9 ; Morbid obesity due to excess calories E66.01 ; Depression with anxiety F41.8 ; Hypothyroidism, unspecified type E03.9 ; Seasonal allergic rhinitis due to other allergic trigger J30.89 ; Pain, dental K08.89 and Gastroesophageal reflux disease without esophagitis K21.9 [facility] [id number] [place] [address] [id number] Jul, Dental examination Z01.20 [place] [id number] [place] [address] 20957- 3938 07 Jul, 2016 Paranoid schizophrenia F20.0 [place] [id number] [place] [address] 49984- 8571 13 Jun, 2016 Paranoid schizophrenia F20.0 and Depression with anxiety F41.8 [place] [id number] [place] [address] 64969- 4869 Jun, Paranoid schizophrenia F20.0 and Depression with anxiety F41.8 [place] [id number] [place] [address] 10854- 8331 Jun, [place] [id number] [place] [address] 35750- 6708 Jun, [facility] [address] [place] [address] 57144 -4813 Jun, Seasonal allergic rhinitis due to other allergic trigger J30.89 [facility] [address] [place] [address] 12523 -0961 May, Sore throat J02.9 ; Other viral agents as the cause of diseases classified elsewhere B97.89 and Acute upper respiratory infection, unspecified J06.9 [place] [id number] [place] [address] 87731- 6220 08 May, 2016 Paranoid schizophrenia F20.0 and Depression with anxiety F41.8 [place] [id number] [place] [address] 59736- 2469 Apr, Other seasonal allergic rhinitis J30.2 [place] [address] 41550- 8024 Apr, Paranoid schizophrenia F20.0 and Depression with anxiety F41.8 [facility] [place] [id number] [place] [address] 46844 -6735 Apr, Bronchitis J40 and Sore throat J02.9 [place] [address] 74331- 1892 Apr, Type 2 diabetes mellitus without complication, without long- term current use of insulin E11.9 [facility] [place] [id number] [place] [address] 40825 -9898 Apr, Bronchitis J40 [place] [address] 31816- 9339 Apr, [place] [id number] [place] [address] 92585- 8812 Apr, [place] [id number] [place] [address] 32313- 8673 Mar, Type 2 diabetes mellitus without complication, [...] Other seasonal allergic rhinitis J30.2 [place] [id number] [place] [address] 50649- 0669 Mar, Paranoid schizophrenia F20.0 and Depression with anxiety F41.8 [facility] [address], [place] [address]- 4587 30 Feb, 2016 [facility] [id number] [place] [address] 02955- 1857 Feb, [facility] [id number] [place] [address] 70528- 2243 Feb, [facility] [id number] [place] [address] 96268- 1163 Feb, [facility] [id number] [place] [address] 24037- 9363 Feb, Type 2 diabetes mellitus without complication, without long- term current use of insulin E11.9 ; ARIAS on CPAP G47.33 and Preoperative evaluation to rule out surgical contraindication Z01.818 [facility] [id number] [place] [address] 56206- 6614 09 Feb, 2016 Paranoid schizophrenia F20.0 and Depression with anxiety F41.8 [facility] [id number] [place] [address] 55026- 0349 18 Jan, 2016 [facility] [id number] [place] [address] 31890- 8861 18 Jan, 2016 Paranoid schizophrenia F20.0 and Depression with anxiety F41.8 [facility] [id number] [place] [address] 23497- 8700 17 Jan, 2016 [facility] [address] [place] [address] 00440- 9827 14 Jan, 2016 Muscle strain T14.8 [facility] [id number] [place] [address] 54080- 6253 10 Jan, 2016 Paranoid schizophrenia F20.0 [facility] [id number] [place] [address] 71129- 6063 07 Jan, 2016 [facility] [id number] [place] [address] 75264- 1209 Jan, Paranoid schizophrenia F20.0 and Depression with anxiety F41.8 [facility] [id number] [place] [address] 74394- 1823 05 Jan, 2016 [facility] [id number] [place] [address] 80843- 8670 Jan, [facility] [id number] [place] [address] 14883- 7537 Dec, [facility] [id number] [place] [address] 05608- 9792 Dec, Paranoid schizophrenia F20.0 [facility] [id number] [place] [address] 45498- 8391 16 Dec, 2015 Paranoid schizophrenia F20.0 and Depression with anxiety F41.8 [facility] [id number] [place] [address] 28752- 1417 Nov, [facility] [id number] [place] [address] 82732- 9678 Nov, Paranoid schizophrenia F20.0 [facility] [id number] [place] [address] 53496- 3036 Nov, Paranoid schizophrenia F20.0 and Depression with anxiety F41.8 [facility] [id number] [place] [address] 07049- 9328 Nov, Type 2 diabetes mellitus without complication, without long- term current use of insulin E11.9 ; Paranoid schizophrenia F20.0 ; Chronic obstructive pulmonary disease, unspecified COPD type J44.9 ; Morbid obesity due to excess calories E66.01 and Parkinsonian tremor G20 [facility] [id number] [place] [address] 46903- 8680 Nov, [facility] [id number] [place] [address] 92710- 6118 Oct, Paranoid schizophrenia F20.0 [facility] [id number] [place] [address] 16538- 7817 Oct, Paranoid schizophrenia F20.0 [place] [address] 93863- 2132 Oct, Paranoid schizophrenia F20.0 and Depression with anxiety F41.8 [place] [address] 38882- 7342 Oct, [place] [address] 31437- 7432 Oct, Paranoid schizophrenia F20.0 and Depression with anxiety F41.8 [place] [address] 95098- 0825 Oct, Nasal sore J34.89 [place] [address] 36882- 9309 Oct, Type 2 diabetes mellitus without complication, without long- term current use of insulin E11.9 ; Depression with anxiety F41.8 ; Hypothyroidism, unspecified type E03.9 and History of lupus Z87.39 [place] [id number] [place] [address] 61994- 7263 Oct, [place] [address] [id number] [place] [address] 36637- 1572 Oct, Type 2 diabetes mellitus without complication, [...] edema R60.9 and History of lupus Z87.39 [place] [address] [id number] [place] [address] 10822- 6391 Feb, [place] [address] [facility] [id number] [place] [address]- 4748 Jan, [facility] [address] [facility] [id number] [place] [address]- 5823 Jan, [facility] [address] [facility] [id number] [place] 1224 Jan, [facility] [address] [facility] [id number] [place]- 2995 Dec, [facility] [address] [facility] [id number] [place] [address]- 6718 Nov, [facility] [address] [facility] [id number] [place] [address]- 6731 Nov, [facility] [address] [facility] [id number] [place] [address]- 6426 Oct, [facility] [address] [place] [address] Oct, [facility] [address] [id number] [place] [address] Oct, [facility] [id number] [place] [address] Sep, Allergic rhinitis 477.9 [facility] [id number] [place] [address] Sep, Rhinitis, allergic 477.9 [facility] [address] [facility] [id number], [place] [address] Sep, Rhinitis, allergic 477.9 [facility] [address] [id number] [place] [address] Sep, [facility] [address] [facility] [id number] [place] [address] August, [facility] [address] [id number] [place] [address] August, [facility] [place] [facility] [address] [id number] [place] [address] August, [facility] [facility] [address] [id number] [place] [address] 28 Jul, 2014 [facility] [place] [facility] [address] [id number] [place] [address] 14 Jul, 2014 [facility] [place] [facility] [address] [id number] [place] [address] 8511 13 Jul, 2014 [facility] [place] [facility] [address] [id number] [place] [address] 9363 16 Jun, 2014 [facility] [place] [facility] [address] [id number] [place] [address] 3132 16 Jun, 2014 [facility] [place] [facility] [address] [id number] [place] [address] 7751 Jun, [facility] [place] [facility] [address] [id number] [place] [address] 5489 Jun, [facility] [place] [facility] [address] [id number] [place] [address] 2263 Jun, [facility] [place] [facility] [address] [id number] [place] [address] 9162 Jun, [facility] [place] [facility] [address] [id number] [place] [address] 0114 Jun, [facility] [place] [facility] [address] [id number] [place] [address] 7284 Jun, [facility] [place] [facility] [address] [id number] [place] [address] May, [facility] [place] [facility] [address] [id number] [place] [address]- 1511 May, [facility] [place] [facility] [address] [id number] [place] [address]- 4784 11 May, 2014 [facility] [place] [facility] [address] [id number] [place] [address] 6386 May, [facility] [place] [facility] [address] [id number] [place] [address]- 5451 Apr, [facility] [place] [facility] [address] [id number] [place] [address] 6624 Mar, [facility] [place] [facility] [address] [id number] [place] [address] 3803 Mar, [facility] [place] [facility] [address] [id number] [place] [address] Mar, [facility] [place] [address] [id number] [place] [address] 3011 Mar, [facility] [place] [address] [id number] [place] [address] Mar, [facility] [place] [facility] [address] [id number] [place] [address]- 0510 Mar, [facility] [facility] [address] [id number] [place] [address]- 7453 Mar, [facility] [address] [id number] [place] [address]- 6356 Mar, [facility] [place] [facility] [address] [id number] [place] [address]- 0533 Mar, [facility] [address] [id number] [place] [address]- 4094 Feb, [facility] [address] [id number] [place] [address] 8159 Feb, [facility] [address] [id number] [place] [address] Feb, [facility] [address] [id number] [place] [address]- 1798 Feb, [facility] [address] [id number] [place] [address]- 6352 Feb, [facility] [address] [id number] [place] [address]- 7785 14 Feb, 2014 [facility] [address] [id number] [place] [address]- 9983 12 Feb, 2014 [facility] [address] [id number] [place] [address]- 2666 12 Feb, 2014 [facility] [address] [id number] [place] [address]- 5973 23 Jan, 2014 [facility] [address] [id number] [place] [address]- 6573 23 Jan, 2014 [facility] [address] [id number] [place] [address]- 0946 16 Jan, 2014 [facility] [address] [id number] [place] [address] 5039 16 Jan, 2014 [facility] [address] [id number] [place] [address]- 2164 15 Jan, 2014 [facility] [address] [id number] [place] [address]- 0072 15 Jan, 2014 [facility] [address] [id number] [place] [address]- 8328 14 Jan, 2014 [facility] [address] [id number] [place] [address]- 1255 14 Jan, 2014 [facility] [address] [id number] [place] [address]- 5752 14 Jan, 2014 [facility] [address] [id number] [place] [address]- 6854 14 Jan, 2014 [facility] [address] [id number] [place] [address]- 6786 18 Dec, 2013 [facility] [address] [id number] [place] [address]- 3268 18 Dec, 2013 [facility] [address] [id number] [place] [address]- 1348 Dec, [facility] [address] [id number] [place] [address] 2506 Dec, [facility] [address] [id number] [place] [address]- 4425 Nov, [facility] [address] [id number] [place] [address]- 7170 Nov, [facility] [address] [id number] [place] [address]- 6103 Nov, [facility] [address] [id number] [place] [address]- 6477 Nov, [facility] [address] [id number] [place] [address]- 0335 Nov, [facility] [address] [id number] [place] [address]- 5854 Oct, [facility] [address] [id number] [place] [address]- 8486 Oct, [facility] [address] [id number] [place] [address]- 3227 Oct, [facility] [address] [id number] [place] [address]- 5992 Oct, [facility] [address] [id number] [place] [address] 8694 Sep, [facility] [address] [id number] [place] [address]- 6548 Sep, [facility] [address] [id number] [place] [address]- 8924 Sep, [facility] [address] [id number] [place] [address]- 6624 Sep, [facility] [address] [id number] [place] [address]- 0799 Sep, [facility] [address] [id number], [place] [address]- 9[address] Sep, [facility] [address] [id number] [place] [address]- 9309 Sep, [facility] [address] [id number] [place] [address]- 4471 Sep, [facility] [address] [id number] [place] [address]- 7905 August, [facility] [address] [id number] [place] [address]- 8194 August, [facility] [address] [id number] [place] [address]- 9627 August, [facility] [address] [id number] [place] [address]- 2105 August, [facility] [address] [id number] [place] [address]- 4397 August, [facility] [address] [id number] [place] [address]- 6962 August, [facility] [address] [id number] [place] [address]- 3394 August, [facility] [address] [id number] [place] [address]- 5598 Jul, [facility] [address] [id number] [place] [address]- 2185 Jul, [facility] [address] [id number] [place] [address]- 0633 Jul, [facility] [address] [id number] [place] [address]- 9902 Jul, [facility] [address] [id number] [place] [address]- 7643 Jul, [facility] [address] [id number] [place] [address]- 6336 Jul, [facility] [address] [id number] [place] [address]- 5695 2013 [facility] [address] [id number] [place] [address]- 7269 Jul, [facility] [address] [id number] [place] [address]- 4551 Jul, [facility] [address] [id number] [place] [address]- 1551 Jul, [facility] [address] [id number] [place] [address]- 3194 Jul, [facility] [address] [id number] [place] [address]- 9292 Jul, [facility] [address] [id number] [place] [address]- 7246 Jun, [facility] [address] [id number] [place] [address]- 3659 Jun, [facility] [address] [id number] [place] [address]- 0167 Jun, [facility] [address] [id number] [place] [address]- 2703 Jun, [facility] [address] [id number] [place] [address]- 6924 Jun, [facility] [address] [id number] [place] [address]- 3033 May, [facility] [address] [id number] [place] [address]- 1827 May, [facility] [address] [id number] [place] [address]- 9554 May, [facility] [address] [id number] [place] [address]- 0411 May, [facility] [address] [id number] [place] [address]- 9260 May, 2013 [facility] [address] [id number] [place] [address]- 8525 May, [facility] [address] [id number], [place] [address]- 3283 May, 2013 [facility] [address] [facility] [id number] [place] [address]- 4243 May, [facility] [address] [id number] [place] [address]- 0900 Mar, [facility] [address] [id number] [place] [address]- 5925 Mar, [facility] [address] [facility] [id number] [place] [address]- 4301 Mar, [facility] [address] [facility] [id number], [place] [address]- 1389 Mar, [facility] [address] [facility] [id number] [place] [address]- 1462 Mar, [facility] [address] [facility] [id number] [place] [address]- 2540 Mar, [facility] [address] [facility] [id number], [place] [address]- 0056 Feb, [facility] [address] [facility] [id number], [place] [address]- 9479 Feb, [facility] [address] [id number], [place] [address]- 3210 Jan, [facility] [address] [id number], [place] [address]- 5175 Jan, [facility] [address] [facility] [id number], [place] [address]- 4438 Jan, [facility] [address] [facility] [id number], [place] [address]- 0214 Jan, [facility] [address] [id number] [place] [address]- 0648 Jan, [facility] [address] [id number] [place] [address]- 5135 Jan, [facility] [address] [id number] [place] [address]- 2546 Jan, [facility] [address] [id number] [place] [address]- 3423 Jan, [facility] [address] [id number] [place] [address]- 1021 Jan, [facility] [address] [id number] [place] [address]- 4962 Jan, [facility] [address] [id number] [place] [address]- 9475 Dec, [facility] [address] [id number] [place] [address]- 2416 Nov, [facility] [address] [id number] [place] [address]- 9321 Nov, [facility] [address] [id number] [place] [address]- 9773 Nov, [facility] [address] [id number] [place] [address]- 9266 Oct, [facility] [address] [id number] [place] [address]- 7659 Oct, [facility] [address] [id number] [place] [address]- 2004 August, [facility] [address] [id number] [place] [address]- 8358 Apr, [facility] [address] [id number] [place] [address]- 2546 Apr, [facility] [address] [id number] [place] [address]- 8575 Feb, [facility] [address] [facility] [id number], [place] [address]- 5632 Feb, [facility] [id number], [place] [address]- 2726 Dec, [facility] [address] [id number], [place] [address]- 2741 Dec, [facility] [id number], [place] [address]- 6929 Oct, [facility] [id number], [place] [address]- 8793 Oct, [facility] [id number], [place] [address]- 3425 Oct, [facility] [address] [id number], [place] [address]- 3461 Jul, IMMUNIZATIONS No Known Immunizations SOCIAL HISTORY [...] for psychosis/mental illness , last one in [place] at [facility] 4 years ago
--- OUTSIDE RECORDS SUMMARY | 2018-09-02 14:32 | XMS REPORT ---
Author Author ADELINA TONG Organization [facility] Address [address] [place] [address] Care Team Providers Care Whipped Topping Mixer Name Role Phone ADELINA TONG Unavailable PROBLEMS Type Condition ICD9-CM Code UIK00-LO Code Onset Dates Condition Status SNOMED Code Problem History of lupus Z87.39 Active 142408685 Problem ARIAS on CPAP G47.33 Active 11128364 Problem OAB (overactive bladder) N32.81 Active 057535476 Problem Menopausal syndrome (hot flashes) N95.1 Active 318926420 Problem Other elevated white blood cell (WBC) count D72.828 Active 153641041 Problem Seasonal allergic rhinitis due to other allergic trigger J30.89 Active 867618705 Problem Gastroesophageal reflux disease without esophagitis K21.9 Active 753950657 Problem Primary insomnia F51.01 Active 0421164 Problem Schizoaffective disorder, depressive type F25.1 Active 84252479 Problem Morbid obesity due to excess calories E66.01 Active 647102441 Problem Depression with anxiety F41.8 Active 111653024 Problem Chronic obstructive pulmonary disease, unspecified COPD type J44.9 Active 23687536 Problem Peripheral edema R60.9 Active 030213906 Problem Paranoid schizophrenia F20.0 Active 15168824 Problem Chronic pain syndrome G89.4 Active 566998324 Problem Parkinsonian tremor G20 Active 503619713 Problem Hypothyroidism, unspecified type E03.9 Active 00319264 Problem Type 2 diabetes mellitus without complication, without long-term current use of insulin E11.9 Active 759439217 ALLERGIES Substance Reaction Event Type Date Status Penicillins Unknown Non Drug Allergy May, Active Sulfa(sulfonamide Antibiotics) Unknown Non Drug Allergy May, Active SOCIAL HISTORY Never Assessed PLAN OF CARE Activity Details Follow Up prn Reason: VITAL SIGNS Height 57 in 2016-06-20 Weight 210.6 lbs 2016-06-20 Temperature 97.3 degrees Fahrenheit 2016-06-20 Heart Rate 92 bpm 2016-06-20 Respiratory Rate 22 2016-06-20 BMI 45.57 kg/m2 2016-06-20 Blood pressure systolic 128 mmHg 2016-06-20 Blood pressure diastolic 86 mmHg 2016-06-20 MEDICATIONS Medication Instructions Dosage Frequency Start Date End Date Duration Status Ventolin HFA 108 (90 Base) MCG/ACT Inhalation every 4 hrs 2 puffs as needed 4h Feb, 90 days Active Belsomra 20 mg Orally Once a day 1 tablet at bedtime as needed 24h 30 days Active Tizanidine HCl 4 MG Orally 3 times a day 1 1/2 tablets 8h Active Ibuprofen 600 MG Orally Three times a day 1 tablet 8h Mar,Jun 90 days Active HydrOXYzine HCl 25 MG Orally every 8 hrs 1 tablet as needed 8h May, 30 day(s) Active Myrbetriq 50 MG Orally Once a day 1 tablet 24h 90 days Active Levothyroxine Sodium 150 MCG Orally Once a day 1 tablet 24h 90 Active Cetirizine HCl 10 MG Orally Once a day 1 tablet 24h May, Jun, 30 day(s) Active Spironolactone 50MG Orally Once a day 1 tablet 24h 30 Active Pravastatin Sodium 10 mg Orally Once a day 1 tablet 24h 30 days Active Suvorexant 10 mg Orally Once a day 1 tablet at bedtime as needed 24h Mar Active Restasis 0.05 % instill 1 drop into affected eye(s) by ophthalmic route 2 times per day Oct, Active Norvasc 10 mg Orally Once a day 1 tablet 24h 30 Active PredniSONE 20 MG Orally Once a day 2 tablet 24h May, Jun, 5 days Active Januvia 25 MG Orally Once a day 2 tablets 24h Mar, 90 days Active Metformin HCl 1000 MG Orally Twice a day 1 tablet with meals 12h Mar, 90 days Active Breo Ellipta 100-25 mcg/dose Inhalation Once a day inhale 1 puff by inhalation route once daily at the same time each day 24h Jun,Mar 90 days Active Sertraline HCl 100 MG Orally Once a day 1 tablet 24h Active Invega Sustenna 234 MG/1.5ML Intramuscular Once a month, on the 10th of every month 1.5 ml Active Nexium 40 mg Orally Once a day 1 capsule 24h 90 days Active Vistaril 25MG Orally every 8 hrs 1 capsule as needed 8h 30 Active RESULTS Name Result Date Reference Range STREP A (IN HOUSE) 2016-06-20 STREP A negative Control + Lot # [id number] Exp date [id number] PROCEDURES Procedure Date Ordered Result Body Site STREP A ASSAY W/OPTIC Jun 20, 2016 [facility] EST[facility] PATIENT Jun 20, 2016 IMMUNIZATIONS No Known Immunizations MEDICAL (GENERAL) [...] psychosis/mental illness , last one in [facility] 4 years ago
--- OUTSIDE RECORDS SUMMARY | 2018-09-02 14:33 | XMS REPORT ---
Author Author RADHA ROJAS [facility] eClinicalWorks Address Unknown Phone Unavailable Care Team Providers Care Soliciting Freight Agent Name Role Phone RADHA ROJAS CP Unavailable [...] Instructions Start Date End Date Status Dosage Breo Ellipta [facility] [address]-65 100-25 mcg/dose Inhalation, must be seen for more refills Once a day July 05, 2014 inhale 1 puff by inhalation route once daily at the same time each day Spironolactone [facility] [address]-45 50 MG Orally, must be seen for more refills Once a day 1 tablet Results No Known Results Summary Purpose eClinicalWorks Submission
--- OUTSIDE RECORDS SUMMARY | 2018-09-02 14:34 | XMS REPORT ---
Author JOSE Romano [facility] eClinicalWorks Address Unknown Phone Unavailable Care Team Providers Care Metal Machine Setter Name Role Phone JOSE LOYA CP Unavailable Allergies, Adverse Reactions, Alerts Substance [...] pulmonary disease, unspecified COPD type J44.9 Active Assessment Preoperative evaluation to rule out surgical contraindication Z01.818 Active Problem History of lupus Z87.39 Active Problem Peripheral edema R60.9 Active Assessment ARIAS on CPAP G47.33 Active Problem Parkinsonian tremor G20 Active Assessment Type 2 diabetes mellitus without complication, without long-term current use of insulin E11.9 Active Problem Hypothyroidism, unspecified type E03.9 Active Medications Medication Code System Code Instructions Start Date End Date Status Dosage Gabapentin [facility] 96263572942 600 MG Orally Three times a day 1 tablet Trazodone HCl [facility] [address]-44 150 MG Orally Once a day 1 tablet at bedtime as needed Spironolactone [facility] [address]-66 50 mg Orally Once a day 1 tablet Invega Sustenna [facility] [address]-91 234 MG/1.5ML Intramuscular Once q monthly on the 10th of each month 1 drop Claritin [facility] [address]-09 10 mg Orally Once a day 1 tablet Restasis [facility] [address]-85 0.05 % November 15, 2012 instill 1 drop into affected eye(s) by ophthalmic route 2 times per day Sertraline HCl [facility] [address]-90 100 MG Orally Once a day 1 tablet Ambien [facility] [address]-61 5 mg Orally Once a day 1 tablet at bedtime Tanvir Fontanata [facility] [address]-80 100-25 mcg/dose Inhalation Once a day July 05, 2014 inhale 1 puff by inhalation route once daily at the same time each day Norvasc [facility] [address]-57 10 mg Orally Once a day 1 tablet Loxapine Succinate [facility] [address]-36 25 MG Orally 4 times a day PRN 1 capsule Triamcinolone Acetonide [facility] 24823729634 0.5 % APPLY TOPICALLY TWICE DAILY Mupirocin [facility] [address]-65 2 % Externally Three times a day Apr 20, 2014 1 Application by Nasal route 2 times per day to each nare--disp 22 gram tube Levothyroxine Sodium [facility] 66803990831 150 MCG Orally Once a day 1 tablet Pravastatin Sodium [facility] 50740709058 10 MG Orally Once a day 1 tablet Vistaril [facility] [address]-84 25 MG Orally every 8 hrs 1 capsule as needed Nexium [facility] 12377457801 40 mg Orally Once a day 1 capsule Premarin [facility] 17719828286 0.625 MG/GM insert 0.5 gram by vaginal route twice weekly Tizanidine HCl [facility] [address]-72 4 MG Orally 3 times a day 1 1/2 tablets Myrbetriq [facility] [address]-21 50 MG Orally Once a day 1 tablet metformin [facility] [address]-92 1,000 mg orally 2 times a day July 05, 2014 1 tablet Procedures Procedure Coding System Code Date MEASURE BLOOD OXYGEN LEVEL CPT-4 10364 Mar 09, 2016 ELECTROCARDIOGRAM, TRACING CPT-4 35744 Mar 09, 2016 GLYCATED HEMOGLOBIN TEST CPT-4 67086 Mar 09, 2016 Office Visit, Est Pt., Level 4 CPT-4 09216 Mar 09, 2016 [facility] CPT-4 G0467 Mar 09, 2016 Vital Signs Date/Time: Mar 09, 2016 Cardiac Monitoring Heart Rate 80 bpm Weight 213.6 lbs Height 57 in BMI 46.22 Index Oximetry 92 % Blood Pressure Diastolic 80 mmHg Blood Pressure Systolic 118 mmHg Results Name Result Date Reference Range Unit Abnormality Flag EKG, TRACING (IN-HOUSE) A1C (IN HOUSE) ----Exp date [id number] ----Previous A1c 7.3 [id number] ----Lot [id number] ----A1C IN HOUSE 7.7 [id number] 4.3 - 5.6 % Summary Purpose eClinicalWorks Submission
--- OUTSIDE RECORDS SUMMARY | 2018-09-02 14:34 | XMS REPORT ---
Author Author EDWIN UMESH Organization [facility] Address [address] [place] [address] Care Team Providers Care Photo Tech Name Role Phone UMESH PINEDA Unavailable PROBLEMS Type Condition ICD9-CM Code JWC15-DK Code Onset Dates Condition Status SNOMED Code Problem Other seasonal allergic rhinitis J30.2 Active 350917924 Problem Gastroesophageal reflux disease, esophagitis presence not specified K21.9 Active 029032306 Problem Tobacco abuse Z72.0 Active 345663834 Problem Seasonal allergic rhinitis due to pollen J30.1 Active 60379680 Problem History of lupus Z87.39 Active 651318444 Problem COPD exacerbation J44.1 Active 873761173 Problem OAB (overactive bladder) N32.81 Active 035589392 Problem Morbid obesity due to excess calories E66.01 Active 379944537 Problem Dyslipidemia E78.5 Active 709814174 Problem Migraine without aura and without status migrainosus, not intractable G43.009 Active 621119243 Problem Hypothyroidism (acquired) E03.9 Active 647006606 Problem Essential hypertension I10 Active 70551619 Problem Type 2 diabetes mellitus without complication, without long-term current use of insulin E11.9 Active 163855535 Problem Gastroesophageal reflux disease without esophagitis K21.9 Active 495507596 Problem Chronic pain syndrome G89.4 Active 121195927 Problem Paranoid schizophrenia F20.0 Active 03522914 Problem Primary insomnia F51.01 Active 6453102 Problem DM neuro manif type II E11.49 Active 52435842 Problem Depression with anxiety F41.8 Active 641739183 Problem Seasonal allergic rhinitis due to other allergic trigger J30.89 Active 342646825 Problem Menopausal syndrome (hot flashes) N95.1 Active 262768292 Problem Chronic obstructive pulmonary disease, unspecified COPD type J44.9 Active 76210795 Problem Schizoaffective disorder, depressive type F25.1 Active 41856936 Problem Other allergic rhinitis J30.89 Active 662697717 ALLERGIES No Information ENCOUNTERS Encounter Location Date Diagnosis [facility] [address] [address] Nov, [facility] [id number] [place] [address] 39422- 3496 Oct, [facility] [id number] [place] [address] 97545- 0671 Sep, Schizoaffective disorder, depressive type F25.1 [facility] [id number] [place] [address] 90999- 4672 Sep, [facility] [id number] [place] [address] 04090- 0481 Sep, Paranoid schizophrenia F20.0 [facility] [id number] [place] [address] 14928- 8478 Sep, [facility] [id number] [place] [address] 29717- 2204 Sep, Hypothyroidism (acquired) E03.9 [facility] [id number] [place] [address] 11515- 7984 Sep, [facility] [id number] [place] [address] 09200- 9628 August, Schizoaffective disorder, depressive type F25.1 [facility] [id number] [address] 7057 August, [facility] [id number] [place] [address] 52005- 9323 August, [facility] [id number] [place] [address] 87067- 1155 August, [facility] [id number] [place] [address] 20570- 5901 August, Paranoid schizophrenia F20.0 [facility] [id number] [place] [address] 77467- 2232 August, History of lupus Z87.39 and Chronic pain syndrome G89.4 [place] [address] 25798- 6585 August, [facility] [address] 28766 -6528 August, Seasonal allergic rhinitis, unspecified trigger J30.2 and BMI 45.0-49.9, adult Z68.42 [place] [address] 42434- 9875 Jul, Schizoaffective disorder, depressive type F25.1 [place] [address] 51589- 3384 Jul, [place] [address] 89957- 3586 Jul, Hypothyroidism (acquired) E03.9 [place] [address] 02053- 2676 Jul, Chronic obstructive pulmonary disease, unspecified COPD type J44.9 and Type 2 diabetes mellitus without complication, without long-term current use of insulin E11.9 [place] [address] 11983- 0606 Jul, Paranoid schizophrenia F20.0 [place] [address] 10545- 0431 Jun, Hypothyroidism (acquired) E03.9 and Seasonal allergic rhinitis due to pollen J30.1 [facility] WALK IN [facility] [address] 87834 -1789 Jun, Shortness of breath at rest R06.02 ; COPD exacerbation J44.1 and BMI 45.0-49.9, adult Z68.42 [place] [address] 75987- 1633 Jun, [place] [address] 89595- 5344 Jun, Paranoid schizophrenia F20.0 ; Depression with anxiety F41.8 and BMI 45.0-49.9, adult Z68.42 [facility] [address] [place] [address] [address]- 9082 Jun, Schizoaffective disorder, depressive type F25.1 [facility] [address] [id number] Jun, Dental caries K02.9 [facility] [address] 79965- 9682 Jun, Paranoid schizophrenia F20.0 [place] [address] 74387- 6279 May, Migraine without aura and without status migrainosus, not intractable G43.009 ; DM neuro manif type II E11.49 and Type 2 diabetes mellitus without complication, without long-term current use of insulin E11.9 [facility] [address] 97902- 7183 May, Migraine without aura and without status migrainosus, not intractable G43.009 [place] [address] 98860- 6198 May, Depression with anxiety F41.8 [facility] [id number] [place] [address] [id number] May, [facility] [address] 67710- 4469 May, [facility] [address] 40836- 8774 May, [place] [address] 54208- 9339 May, Hypothyroidism (acquired) E03.9 [facility] [address] 65541- 4388 May, Paranoid schizophrenia F20.0 [facility] [id number] [place] [address] 13484- 8142 08 May, 2017 Type 2 diabetes mellitus [...] N32.81 and Controlled substance agreement signed Z79.899 [place] [address] 40687- 6977 02 May, 2017 Controlled substance agreement signed Z79.899 [place] [address] 95896- 2866 Apr, [facility] [address] [id number] Apr, Dental examination Z01.20 [place] [id number] [place] [address] 01344- 8033 Apr, Paranoid schizophrenia F20.0 [place] [address] 39855- 0709 Apr, Hypertension, unspecified type I10 [facility] [address] 57574- 0328 Apr, Paranoid schizophrenia F20.0 [place] [address] 40592- 8192 05 Apr, 2017 [place] [address] 54706- 2175 Apr, Tobacco abuse Z72.0 [place] [address] [place] [place] [address] 7320 Apr, [facility] [id number] [place] [address] 84657- 6839 Mar, [facility] [id number] [place] [address] 18947- 4296 Mar, Paranoid schizophrenia F20.0 and BMI 45.0-49.9, adult Z68.42 [facility] [id number] [place] [address] 01256- 9785 Mar, Schizoaffective disorder, depressive type F25.1 [facility] [address] 05396- 2705 Mar, [facility] [id number] [place] [address] 88779- 0446 Mar, Hypothyroidism, unspecified type E03.9 [facility] [id number] [place] [address] 23063- 5384 Mar, Schizoaffective disorder, depressive type F25.1 [facility] WALK IN [facility] [id number] [place] [address] 32287 -3434 Feb, Gastroenteritis K52.9 and BMI 45.0-49.9, adult Z68.42 [facility] [id number] [place] [address] 81917- 1659 Feb, [facility] [id number] [place] [address] 82284- 1563 Feb, [facility] [id number] [place] [address] 46947- 4787 Feb, [facility] [id number] [place] [address] 73156- 7805 16 Feb, 2017 [facility] [id number] [place] [address] 02419- 2524 10 Feb, 2017 Paranoid schizophrenia F20.0 [facility] [address] [place] [address]- 5890 Feb, Gastroesophageal reflux disease without esophagitis K21.9 ; Other seasonal allergic rhinitis J30.2 ; Other allergic rhinitis J30.89 ; Tobacco abuse Z72.0 and BMI 40.0-44.9, adult Z68.41 [place] [id number] [place] [address] 77957- 5600 Feb, Onychomycosis B35.1 ; Callus of foot L84 and DM neuro manif type II E11.49 [place] [id number] [place] [address] 32327- 9890 Jan, Chronic allergic rhinitis J30.9 [place] [address] 39636- 0773 Jan, [place] [address] 24923- 5675 Jan, Schizoaffective disorder, depressive type F25.1 [place] [address] 34455- 9497 Jan, [facility] [address] 22605 -3375 Jan, Sore throat J02.9 and Seasonal allergic rhinitis due to other allergic trigger J30.89 [place] [id number] [place] [address] 17770- 0528 Jan, [facility] [address] 90758- 6243 Jan, [facility] [address] 08345 -7948 Jan, Chronic allergic rhinitis J30.9 [facility] [id number] [place] [address] 42732- 7881 Dec, Paranoid schizophrenia F20.0 ; Primary insomnia F51.01 and Schizoaffective disorder, depressive type F25.1 [place] [address] [place] [address]- 3512 Dec, Chronic pain syndrome G89.4 ; Cervicalgia of occipito- atlanto-axial region M54.2 ; Menopausal syndrome (hot flashes) N95.1 and Encounter for immunization Z23 [facility] [id number] [place] [address] 04979- 1149 14 Dec, 2016 [place] [address] 83567- 6036 Dec, [place] [id number] [place] [address] 86378- 9315 08 Dec, 2016 Paranoid schizophrenia F20.0 [place] [id number] [place] [address] 54825- 3188 Dec, Schizoaffective disorder, depressive type F25.1 [place] [id number] [place] [address] 02972- 7208 Nov, Hypothyroidism, unspecified type E03.9 [facility] [id number] [place] [address] 28707 -7811 Nov, Acute seasonal allergic rhinitis due to other allergen J30.89 [place] [id number] [place] [address] 36072- 2745 Nov, [place] [id number] [place] [address] 55545- 5264 Nov, Hypothyroidism, unspecified type E03.9 and Other elevated white blood cell (WBC) count D72.828 [place] [id number] [place] [address] 35551- 6831 Nov, Schizoaffective disorder, depressive type F25.1 [facility] [id number] [place] [address] 81862- 8144 Nov, Paranoid schizophrenia F20.0 [facility] [id number] [place] [address] 53036- 5900 11 Aug, 2017 Type 2 diabetes mellitus without complication, without long- term current use of insulin E11.9 ; Morbid obesity due to excess calories E66.01 and Chronic pain syndrome G89.4 [place] [id number] [place] [address] 52672- 2057 Oct, Paranoid schizophrenia F20.0 [place] [id number] [place] [address] 00552- 1816 Oct, [place] [id number] [place] [address] 97777- 3538 Oct, Schizoaffective disorder, depressive type F25.1 [place] [address] 41866- 5367 Oct, Hypothyroidism, unspecified type E03.9 and Other elevated white blood cell (WBC) count D72.828 [place] [id number] [place] [address] 98793- 9320 Oct, Morbid obesity due to excess calories E66.01 ; Chronic obstructive pulmonary disease, unspecified COPD type J44.9 ; History of lupus Z87.39 ; Hypothyroidism, unspecified type E03.9 ; Gastroesophageal reflux disease without esophagitis K21.9 ; Primary insomnia F51.01 and Chronic pain syndrome G89.4 [place] [id number] [place] [address] 19432- 5425 Sep, [place] [id number] [place] [address] 74570- 4989 Sep, [place] [id number] [place] [address] 42965- 1215 Sep, [place] [id number] [place] [address] 22839- 3525 Sep, Paranoid schizophrenia F20.0 [place] [id number] [place] [address] 88505- 8637 Sep, [place] [id number] [place] [address] 71601- 1183 Sep, Paranoid schizophrenia F20.0 [facility] [address], [place] [address]- 6848 Sep, [facility] [id number] [place] [address] 89092- 7591 August, Paranoid schizophrenia F20.0 [facility] [address] [place] [address] 71953- 7527 Jul, [facility] [id number] [place] [address] 84383- 1656 Jul, Type 2 diabetes mellitus without complication, without long- term current use of insulin E11.9 ; Morbid obesity due to excess calories E66.01 ; Depression with anxiety F41.8 ; Hypothyroidism, unspecified type E03.9 ; Seasonal allergic rhinitis due to other allergic trigger J30.89 ; Pain, dental K08.89 and Gastroesophageal reflux disease without esophagitis K21.9 [facility] [address] [place] [address] [id number] Jul, Dental examination Z01.20 [place] [address] [place] [address] 99308- 0240 07 Jul, 2016 Paranoid schizophrenia F20.0 [place] [address] [place] [address] 12796- 2234 13 Jun, 2016 Paranoid schizophrenia F20.0 and Depression with anxiety F41.8 [place] [address] [place] [address] 07854- 6585 Jun, Paranoid schizophrenia F20.0 and Depression with anxiety F41.8 [facility] [address], [place] [address]- 6500 Jun, [place] [id number] [place] [address] 95914- 7789 Jun, [facility] WALK IN [facility] [address], [place] [address] -4282 Jun, Seasonal allergic rhinitis due to other allergic trigger J30.89 [facility]ALK IN [facility] [id number] [place] [address] 13521 -1940 25 May, 2016 Sore throat J02.9 ; Other viral agents as the cause of diseases classified elsewhere B97.89 and Acute upper respiratory infection, unspecified J06.9 [place] [id number] [place] [address] 19582- 4761 08 May, 2016 Paranoid schizophrenia F20.0 and Depression with anxiety F41.8 [place] [id number] [place] [address] 32701- 2668 Apr, Other seasonal allergic rhinitis J30.2 [place] [address] 14762- 8302 Apr, Paranoid schizophrenia F20.0 and Depression with anxiety F41.8 [facility] [place] [id number] [place] [address] 86035 -0373 Apr, Bronchitis J40 and Sore throat J02.9 [place] [id number] [place] [address] 88713- 6532 Apr, Type 2 diabetes mellitus without complication, without long- term current use of insulin E11.9 [facility] [place] [id number] [place] [address] 93304 -4965 Apr, Bronchitis J40 [place] [id number] [place] [address] 79063- 7271 Apr, [place] [id number] [place] [address] 36699- 1639 Apr, [place] [id number] [place] [address] 17079- 1677 Mar, Type 2 diabetes mellitus without complication, [...] R60.9 and Other seasonal allergic rhinitis J30.2 [place] [address] 18851- 2098 Mar, Paranoid schizophrenia F20.0 and Depression with anxiety F41.8 [place] [address] 17636- 7502 Feb, [place] [address] 71460- 3031 Feb, [place] [address] 55080- 3196 Feb, [place] [address] 81171- 2341 Feb, [place] [address] 69417- 5736 Feb, Type 2 diabetes mellitus without complication, without long- term current use of insulin E11.9 ; ARIAS on CPAP G47.33 and Preoperative evaluation to rule out surgical contraindication Z01.818 [place] [address] 18462- 5800 Feb, Paranoid schizophrenia F20.0 and Depression with anxiety F41.8 [place] [address] 56867- 6574 Jan, [place] [address] 15364- 9585 Jan, Paranoid schizophrenia F20.0 and Depression with anxiety F41.8 [place] [address] 33284- 1750 Jan, [place] [address] 61857- 6760 Jan, Muscle strain T14.8 [place] [address] [place] [address]- 0652 Jan, Paranoid schizophrenia F20.0 [facility] [id number] [place] [address] 22810- 6616 Jan, [facility] [id number] [place] [address] 03664- 6078 Jan, Paranoid schizophrenia F20.0 and Depression with anxiety F41.8 [facility] [id number] [place] [address] 35336- 4364 Jan, [facility] [id number] [place] [address] 36330- 4957 Jan, [facility] [id number] [place] [address] 07385- 8631 28 Dec, 2015 [facility] [id number] [place] [address] 03383- 1847 23 Dec, 2015 Paranoid schizophrenia F20.0 [facility] [id number] [place] [address] 98781- 3354 16 Dec, 2015 Paranoid schizophrenia F20.0 and Depression with anxiety F41.8 [facility] [id number] [place] [address] 20902- 6618 Nov, [facility] [address] [place] [address] 23095- 9835 Nov, Paranoid schizophrenia F20.0 [facility] [id number] [place] [address] 86578- 8969 Nov, Paranoid schizophrenia F20.0 and Depression with anxiety F41.8 [facility] [address], [place] [address]- 1656 05 Nov, 2015 Type 2 diabetes mellitus without complication, without long- term current use of insulin E11.9 ; Paranoid schizophrenia F20.0 ; Chronic obstructive pulmonary disease, unspecified COPD type J44.9 ; Morbid obesity due to excess calories E66.01 and Parkinsonian tremor G20 [facility] [address] [place] [address] 61146- 4988 Nov, [place] [id number] [place] [address] 10976- 2124 Oct, Paranoid schizophrenia F20.0 [place] [id number] [place] [address] 87898- 5797 Oct, Paranoid schizophrenia F20.0 [place] [id number] [place] [address] 37737- 7908 Oct, Paranoid schizophrenia F20.0 and Depression with anxiety F41.8 [place] [id number] [place] [address] 82068- 2490 Oct, [place] [id number] [place] [address] 59285- 0251 Oct, Paranoid schizophrenia F20.0 and Depression with anxiety F41.8 [place] [id number] [place] [address] 97116- 1699 Oct, Nasal sore J34.89 [place] [address] [id number] [place] [address] 33701- 4943 Oct, Type 2 diabetes mellitus without complication, without long- term current use of insulin E11.9 ; Depression with anxiety F41.8 ; Hypothyroidism, unspecified type E03.9 and History of lupus Z87.39 [place] [address] [place] [address] 03964- 4443 Oct, [place] [address] [place] [address] 87075- 1188 Oct, Type 2 diabetes mellitus without complication, [...] Z87.39 [facility] [id number] [place] [address] 93423- 9339 Feb, [facility] [id number] [place] [address] 82179- 5067 Jan, [facility] [address] 98189- 9102 Jan, [facility] [id number] [place] [address] 00282- 2333 Jan, [facility] [id number] [place] [address] 81886- 6446 Dec, [facility] [id number] [place] [address] 78779- 0105 Nov, [facility] [id number] [place] [address] 97459- 4113 Nov, [facility] [id number] [place] [address] 85237- 5055 Oct, [facility] [id number] [place] [address] 15222- 4544 Oct, [facility] [id number] [place] [address] 32118- 1450 Oct, [facility] [id number] [place] [address] 85723- 7121 Sep, Allergic rhinitis 477.9 [facility] [id number] [place] [address] 99972- 9530 Sep, Rhinitis, allergic 477.9 [facility] [id number] [place] [address] 63128- 3288 Sep, Rhinitis, allergic 477.9 [facility] [id number] [place] [address] 10779- 4020 Sep, [facility] [place] [facility] [address] [id number] [place] [address]- 2299 August, [facility] [place] [facility] [address] [id number] [place] [address] August, [facility] [place] [facility] [address] [id number] [place] [address] August, [facility] [place] [facility] [address] [id number] [place] [address] Jul, [facility] [place] [facility] [address] [id number] [place] [address] Jul, [facility] [place] [facility] [address] [id number] [place] [address] Jul, [facility] [place] [facility] [address] [id number] [place] [address] Jun, [facility] [place] [facility] [address] [id number] [place] [address] Jun, [facility] [place] [facility] [address] [address] [id number] [place] [address] Jun, [facility] [place] [facility] [address] [id number] [place] [address] Jun, [facility] [place] [facility] [address] [id number], [place] [address] Jun, [facility] [place] [facility] [address] [id number], [place] [address] Jun, [facility] [place] [facility] [address] [id number] [place] [address] Jun, [facility] [place] [facility] [address] [id number] [place] [address] Jun, [facility] [place] [facility] [address] [id number] [place] [address] 112[address] May, [facility] [place] [facility] [address] [id number] [place] [address] 17 May, 2014 [facility] [address] [id number] [place] [address] May, 2014 [facility] [place] [facility] [address] [id number] [place] [address]106 May, 2014 [facility] [address] [id number] [place] [address] 6431 Apr, [facility] [place] [facility] [address] [id number] [place] [address] 99[address] Mar, [facility] [address] [id number] [place] [address] Mar, [facility] [place] [facility] [address] [id number] [place] [address] Mar, [facility] [place] [facility] [address] [id number] [place] [address] 3[address] Mar, [facility] [address] [id number] [place] [address] 1022 Mar, [facility] [place] [facility] [address] [id number] [place] [address] 4225 Mar, [facility] [address] [facility] [id number] [place] [address] Mar, [facility] [place] [facility] [address] [id number] [place] [address] 8209 Mar, [facility] [place] [facility] [address] [id number] [place] [address] 7116 Mar, [facility] [place] [facility] [address] [id number] [place] [address] 7025 Feb, [facility] [place] [facility] [address] [id number] [place] [address] 3[address] Feb, [facility] [place] [facility] [address] [id number] [place] [address] Feb, [facility] [place] [facility] [address] [id number] [place] [address] 3108 17 Feb, 2014 [facility] [place] [facility] [address] [id number] [place] [address]- 0865 14 Feb, 2014 [facility] [place] [facility] [address] [id number] [place] [address]- 5589 14 Feb, 2014 [facility] [place] [facility] [address] [id number] [place] [address] 4444 Feb, [facility] [place] [facility] [address] [id number] [place] [address]- 5222 Feb, [facility] [place] [facility] [address] [id number] [place] [address]- 2274 23 Jan, 2014 [facility] [place] [facility] [address] [id number] [place] [address]- [address] 23 Jan, 2014 [facility] [place] [facility] [address] [id number] [place] [address]- 8420 16 Jan, 2014 [facility] [place] [facility] [address] [id number] [place] [address]- 4668 16 Jan, 2014 [facility] [place] [facility] [address] [id number], [place] [address] 15 Jan, 2014 [facility] [place] [facility] [address] [id number], [place] [address] 15 Jan, 2014 [facility] [place] [facility] [address] [id number], [place] [address] 14 Jan, 2014 [facility] [place] [facility] [address] [id number] [place] [address]- [address]70 14 Jan, 2014 [facility] [place] [facility] [address] [id number] [place] [address]- 6269 14 Jan, 2014 [facility] [place] [facility] [address] [id number], [place] [address] 14 Jan, 2014 [facility] [place] [facility] [address] [id number], [place] [address] Dec, [facility] [place] [facility] [address] [id number] [place] [address] 8905 18 Dec, 2013 [facility] [place] [facility] [address] [id number] [place] [address] 4800 Dec, [facility] [place] [facility] [address] [id number] [place] [address] 3464 Dec, [facility] [place] [facility] [address] [id number] [place] [address] 1192 Nov, [facility] [place] [facility] [address] [id number] [place] [address] 0961 Nov, [facility] [place] [facility] [address] [id number] [place] [address]- 5059 Nov, [facility] [place] [facility] [address] [id number] [place] [address]- 3882 Nov, [facility] [place] [facility] [address] [id number] [place] [address] 3622 Nov, [facility] [place] [facility] [address] [id number] [place] [address]- 5279 Oct, [facility] [place] [facility] [address] [id number] [place] [address] 9380 Oct, [facility] [place] [facility] [address] [id number] [place] [address]- 5307 Oct, [facility] [place] [facility] [address] [id number] [place] [address] 1852 Oct, [facility] [place] [facility] [address] [id number] [place] [address]- 2363 Sep, [facility] [place] [facility] [address] [id number] [place] [address]- 3386 Sep, [facility] [place] [facility] [address] [id number] [place] [address]- 5943 Sep, [facility] [place] [facility] [address] [id number] [place] [address]- 4779 Sep, [facility] [place] [facility] [address] [id number] [place] [address]- 0410 Sep, [facility] [place] [facility] [address] [id number] [place] [address]- 8617 Sep, [facility] [place] [facility] [address] [id number] [place] [address]- 3177 Sep, [facility] [place] [facility] [address] [id number] [place] [address]- 5825 Sep, [facility] [place] [facility] [address] [id number] [place] [address]- 2147 August, [facility] [place] [facility] [address] [id number] [place] [address]- 5359 August, [facility] [place] [facility] [address] [id number] [place] [address]- 9037 August, [facility] [place] [facility] [address] [id number] [place] [address]- 9694 August, [facility] [place] [facility] [address] [id number] [place] [address]- 4759 August, [facility] [place] [facility] [address] [id number] [place] [address]- 1793 August, [facility] [place] [facility] [address] [id number] [place] [address]- 0703 August, [facility] [place] [facility] [address] [id number] [place] [address]- 5617 Jul, [facility] [place] [facility] [address] [id number] [place] [address]- 6408 Jul, [facility] [place] [facility] [address] [id number] [place] [address]- 6439 Jul, [facility] [place] [facility] [address] [id number] [place] [address]- 7272 Jul, [facility] [place] [facility] [address] [id number] [place] [address]- 4027 Jul, [facility] [place] [facility] [address] [id number] [place] [address]- 4787 Jul, [facility] [place] [facility] [address] [id number] [place] [address]- 3585 Jul, [facility] [place] [facility] [address] [id number] [place] [address]- 0943 Jul, [facility] [place] [facility] [address] [id number] [place] [address]- 3620 Jul, [facility] [place] [facility] [address] [id number] [place] [address]- 8738 Jul, [facility] [place] [facility] [address] [id number] [place] [address]- 2696 Jul, [facility] [place] [facility] [address] [id number] [place] [address]- 1982 Jul, [facility] [place] [facility] [address] [id number] [place] [address]- 4228 Jun, [facility] [place] [facility] [address] [id number] [place] [address]- 0191 Jun, [facility] [place] [facility] [address] [id number] [place] [address]- 5900 Jun, [facility] [place] [facility] [address] [id number] [place] [address]- 2028 Jun, [facility] [place] [facility] [address] [id number] [place] [address]- 6240 Jun, [facility] [place] [facility] [address] [id number] [place] [address]- 1791 May, [facility] [place] [facility] [address] [id number] [place] [address]- 3518 May, [facility] [place] [facility] [address] [id number] [place] [address]- 5298 May, 2013 [facility] [place] [facility] [address] [id number] [place] [address]- 7273 May, 2013 [facility] [place] [facility] [address] [id number] [place] [address] May, 2013 [facility] [place] [facility] [address] [id number] [place] [address]- 0746 May, 2013 [facility] [place] [facility] [address] [id number] [place] [address]- 6992 May, [facility] [place] [facility] [address] [id number] [place] [address]- 4558 May, [facility] [place] [facility] [address] [facility] [id number] [place] [address]- 2739 Mar, [facility] [place] [facility] [address] [facility] [id number] [place] [address]- 9427 Mar, [facility] [place] [facility] [address] [id number] [place] [address]- 1543 Mar, [facility] [place] [facility] [address] [facility] [id number] [place] [address]- 3148 Mar, [facility] [place] [facility] [address] [facility] [id number] [place] [address]85 Mar, [facility] [place] [facility] [address] [facility] [id number] [place] [address]- 3029 Mar, [facility] [place] [facility] [address] [id number] [place] [address]- 8011 Feb, [facility] [place] [facility] [address] [id number] [place] [address]- 7716 Feb, [facility] [place] [facility] [address] [facility] [id number] [place] [address]- 5751 Jan, [facility] [place] [facility] [address] [id number] [place] [address] 1910 Jan, [facility] [place] [facility] [address] [id number] [place] [address]- 6525 Jan, [facility] [place] [facility] [address] [id number] [place] [address]- 2557 Jan, [facility] [place] [facility] [address] [id number] [place] [address]- 2551 Jan, [facility] [place] [facility] [address] [id number] [place] [address]- 5548 Jan, [facility] [place] [facility] [address] [id number] [place] [address]- 8274 Jan, [facility] [place] [facility] [address] [id number] [place] [address]- 9600 Jan, [facility] [place] [facility] [address] [id number] [place] [address]- 9931 Jan, [facility] [place] [facility] [address] [id number] [place] [address]- 1075 Jan, [facility] [place] [facility] [address] [id number] [place] [address]- 6601 Dec, [facility] [place] [facility] [address] [id number] [place] [address]- 8342 Nov, [facility] [place] [facility] [address] [id number], [place] [address]- 8657 Nov, [facility] [place] [facility] [address] [id number], [place] [address]- 5351 Nov, [facility] [place] [facility] [address] [id number] [place] [address]- 3823 Oct, [facility] [place] [facility] [address] [id number], [place] [address]- 1021 Oct, [facility] [place] [facility] [address] [id number] [place] [address]- 2857 August, [facility] [place] [facility] [address] [id number], [place] [address]- 9120 Apr, [facility] [id number], [place] [address]- 3948 Apr, [facility] [id number], [place] [address]- 4272 Feb, [facility] [id number], [place] [address]- 8756 Feb, [facility] [id number], [place] [address]- 1530 Dec, [facility] [id number] [place] [address]- 7176 Dec, [facility] [id number], [place] [address]- 7003 Oct, [facility] [id number] 2661 Oct, [facility] [id number], [place] [address]- 0971 Oct, [facility] [id number], [place] [address]- 7002 Jul, IMMUNIZATIONS Vaccine Route Administration Date Status INVEGA (PT'S OWN) IM Intramuscular May 05, 2017 Administered SOCIAL HISTORY Never Assessed REASON FOR VISIT Injection PLAN OF CARE VITAL SIGNS MEDICATIONS Unknown Medications RESULTS No Results PROCEDURES Procedure Date Ordered Result Body Site INVEGA (PT'S OWN) May 05, 2017 THER/PROPH/DIAG INJ, SC/IM May 05, 2017 INSTRUCTIONS MEDICATIONS ADMINISTERED No Known [...] for psychosis/mental illness , last one in [place] at [facility] 4 years ago
--- OUTSIDE RECORDS SUMMARY | 2018-09-02 14:34 | XMS REPORT ---
Author Author ANN-MARIE DIMAS Organization [facility] Address [address] [place] [address] Care Team Providers Care [employer] Worker Name Role Phone ANN-MARIE DIMAS Unavailable PROBLEMS Type Condition ICD9-CM Code MME40-YW Code Onset Dates Condition Status SNOMED Code Problem Other seasonal allergic rhinitis J30.2 Active 030824609 Problem Gastroesophageal reflux disease, esophagitis presence not specified K21.9 Active 308936698 Problem Tobacco abuse Z72.0 Active 948222645 Problem Seasonal allergic rhinitis due to pollen J30.1 Active 48686739 Problem History of lupus Z87.39 Active 093953289 Problem COPD exacerbation J44.1 Active 722633322 Problem OAB (overactive bladder) N32.81 Active 640723467 Problem Morbid obesity due to excess calories E66.01 Active 006842141 Problem Dyslipidemia E78.5 Active 991850676 Problem Migraine without aura and without status migrainosus, not intractable G43.009 Active 976250999 Problem Hypothyroidism (acquired) E03.9 Active 732027959 Problem Essential hypertension I10 Active 13700216 Problem Type 2 diabetes mellitus without complication, without long-term current use of insulin E11.9 Active 322804242 Problem Gastroesophageal reflux disease without esophagitis K21.9 Active 790358140 Problem Chronic pain syndrome G89.4 Active 407318452 Problem Paranoid schizophrenia F20.0 Active 12137179 Problem Primary insomnia F51.01 Active 0343427 Problem DM neuro manif type II E11.49 Active 34001807 Problem Depression with anxiety F41.8 Active 206950715 Problem Seasonal allergic rhinitis due to other allergic trigger J30.89 Active 956981430 Problem Menopausal syndrome (hot flashes) N95.1 Active 941256658 Problem Chronic obstructive pulmonary disease, unspecified COPD type J44.9 Active 50314837 Problem Schizoaffective disorder, depressive type F25.1 Active 49814055 Problem Other allergic rhinitis J30.89 Active 155823003 ALLERGIES No Information ENCOUNTERS Encounter Location Date Diagnosis [facility] [address], [place] [address] Nov, [facility] [id number] [place] [address] 63336- 0773 Oct, [facility] [id number] [place] [address] 99304- 6774 Sep, Schizoaffective disorder, depressive type F25.1 [facility] [id number] [place] [address] 69949- 8792 Sep, [facility] [id number] [place] [address] 17883- 8487 Sep, Paranoid schizophrenia F20.0 [facility] [id number] [place] [address] 69985- 2116 Sep, [facility] [id number] [place] [address] 25695- 9630 Sep, Hypothyroidism (acquired) E03.9 [facility] [id number] [place] [address] 90846- 0854 Sep, [facility] [id number] [place] [address] 44362- 7189 August, Schizoaffective disorder, depressive type F25.1 [facility] [id number] [address] August, [facility] [id number] [place] [address] 09712- 1728 August, [facility] [id number] [place] [address] 39165- 2614 August, [facility] [id number] [place] [address] 48028- 3359 August, Paranoid schizophrenia F20.0 [facility] [id number] [place] [address] 61924- 7181 August, History of lupus Z87.39 and Chronic pain syndrome G89.4 [place] [address] 68682- 4934 August, [facility] [address] [address]73 [address]3486 August, Seasonal allergic rhinitis, unspecified trigger J30.2 and BMI 45.0-49.9, adult Z68.42 [place] [address] 76010- 8044 Jul, Schizoaffective disorder, depressive type F25.1 [place] [address] 44343- 4655 Jul, [place] [address] 32626- 1668 Jul, Hypothyroidism (acquired) E03.9 [place] [address] 39464- 6234 Jul, Chronic obstructive pulmonary disease, unspecified COPD type J44.9 and Type 2 diabetes mellitus without complication, without long-term current use of insulin E11.9 [place] [address] 98959- 3661 Jul, Paranoid schizophrenia F20.0 [place] [address] 15328- 4814 Jun, Hypothyroidism (acquired) E03.9 and Seasonal allergic rhinitis due to pollen J30.1 [facility] [address] 52960 -6998 Jun, Shortness of breath at rest R06.02 ; COPD exacerbation J44.1 and BMI 45.0-49.9, adult Z68.42 [place] [address] 05883- 7674 Jun, [place] [address] 77330- 4835 Jun, Paranoid schizophrenia F20.0 ; Depression with anxiety F41.8 and BMI 45.0-49.9, adult Z68.42 [facility] [address] [place] [address]87[address]- 6859 Jun, Schizoaffective disorder, depressive type F25.1 [facility] [address] [id number] Jun, Dental caries K02.9 [facility] [address] 44514- 1494 Jun, Paranoid schizophrenia F20.0 [place] [address] 41988- 2161 May, Migraine without aura and without status migrainosus, not intractable G43.009 ; DM neuro manif type II E11.49 and Type 2 diabetes mellitus without complication, without long-term current use of insulin E11.9 [facility] [address] 55307- 4637 May, Migraine without aura and without status migrainosus, not intractable G43.009 [place] [address] 51706- 8578 May, Depression with anxiety F41.8 [facility] [id number] [place] [address] [id number] May, [facility] [address] 51009- 6590 May, [facility] [address] 98411- 2111 May, [place] [address] 14294- 6684 May, Hypothyroidism (acquired) E03.9 [facility] [address] 27118- 5607 May, Paranoid schizophrenia F20.0 [facility] [id number] [place] [address] 90396- 6453 08 May, 2017 Type 2 diabetes mellitus [...] N32.81 and Controlled substance agreement signed Z79.899 [place] [address] 07302- 8535 02 May, 2017 Controlled substance agreement signed Z79.899 [place] [address] 72293- 7042 Apr, [facility] [address] [id number] Apr, Dental examination Z01.20 [place] [id number] [place] [address] 66200- 0868 Apr, Paranoid schizophrenia F20.0 [place] [address] 11267- 8665 Apr, Hypertension, unspecified type I10 [facility] [address] 36495- 8303 Apr, Paranoid schizophrenia F20.0 [place] [address] 60544- 7588 05 Apr, 2017 [place] [address] 10335- 6411 Apr, Tobacco abuse Z72.0 [place] [address] [place] [place] [address] 5369 Apr, [facility] [id number] [place] [address] 91167- 1786 Mar, [facility] [id number] [place] [address] 36650- 6580 Mar, Paranoid schizophrenia F20.0 and BMI 45.0-49.9, adult Z68.42 [facility] [id number] [place] [address] 77988- 6086 Mar, Schizoaffective disorder, depressive type F25.1 [facility] [address] 02183- 8671 Mar, [facility] [id number] [place] [address] 20936- 4498 Mar, Hypothyroidism, unspecified type E03.9 [facility] [id number] [place] [address] 39373- 6890 Mar, Schizoaffective disorder, depressive type F25.1 [facility] [id number] [place] [address] 17760 -2129 Feb, Gastroenteritis K52.9 and BMI 45.0-49.9, adult Z68.42 [facility] [id number] [place] [address] 55158- 0889 Feb, [facility] [id number] [place] [address] 63440- 3310 Feb, [facility] [id number] [place] [address] 64217- 4412 Feb, [facility] [id number] [place] [address] 25952- 2438 16 Feb, 2017 [facility] [id number] [place] [address] 49923- 1522 10 Feb, 2017 Paranoid schizophrenia F20.0 [facility] [address] [place] [address]- 0726 Feb, Gastroesophageal reflux disease without esophagitis K21.9 ; Other seasonal allergic rhinitis J30.2 ; Other allergic rhinitis J30.89 ; Tobacco abuse Z72.0 and BMI 40.0-44.9, adult Z68.41 [place] [id number] [place] [address] 54721- 0848 Feb, Onychomycosis B35.1 ; Callus of foot L84 and DM neuro manif type II E11.49 [place] [id number] [place] [address] 38171- 6180 Jan, Chronic allergic rhinitis J30.9 [place] [address] 91817- 1115 Jan, [place] [address] 33185- 3609 Jan, Schizoaffective disorder, depressive type F25.1 [place] [address] 33543- 8302 Jan, [facility] [address] 77947 -6134 Jan, Sore throat J02.9 and Seasonal allergic rhinitis due to other allergic trigger J30.89 [place] [address] [id number] [place] [address] 17034- 3365 Jan, [facility] [address] 44215- 2869 Jan, [facility] [address] 82114 -2415 Jan, Chronic allergic rhinitis J30.9 [facility] [id number] [place] [address] 24700- 8991 Dec, Paranoid schizophrenia F20.0 ; Primary insomnia F51.01 and Schizoaffective disorder, depressive type F25.1 [place] [address] [place] [address]- 3180 Dec, Chronic pain syndrome G89.4 ; Cervicalgia of occipito- atlanto-axial region M54.2 ; Menopausal syndrome (hot flashes) N95.1 and Encounter for immunization Z23 [facility] [id number] [place] [address] 21213- 1887 14 Dec, 2016 [place] [address] 61987- 9865 Dec, [place] [address] [id number] [place] [address] 79484- 5350 08 Dec, 2016 Paranoid schizophrenia F20.0 [place] [address] [id number] [place] [address] 31332- 6867 Dec, Schizoaffective disorder, depressive type F25.1 [place] [id number] [place] [address] 08961- 0851 Nov, Hypothyroidism, unspecified type E03.9 [facility] [id number] [place] [address] 77394 -1699 Nov, Acute seasonal allergic rhinitis due to other allergen J30.89 [place] [id number] [place] [address] 99339- 9198 Nov, [place] [address] [id number] [place] [address] 67067- 6783 Nov, Hypothyroidism, unspecified type E03.9 and Other elevated white blood cell (WBC) count D72.828 [place] [address] [id number] [place] [address] 53416- 6581 Nov, Schizoaffective disorder, depressive type F25.1 [facility] [id number] [place] [address] 47867- 8362 Nov, Paranoid schizophrenia F20.0 [facility] [id number] [place] [address] 63163- 3973 11 Aug, 2017 Type 2 diabetes mellitus without complication, without long- term current use of insulin E11.9 ; Morbid obesity due to excess calories E66.01 and Chronic pain syndrome G89.4 [place] [id number] [place] [address] 84525- 7413 Oct, Paranoid schizophrenia F20.0 [place] [address] [place] [id number] [place] [address] 43320- 2372 Oct, [place] [id number] [place] [address] 40769- 7443 Oct, Schizoaffective disorder, depressive type F25.1 [place] [address] 35396- 5951 Oct, Hypothyroidism, unspecified type E03.9 and Other elevated white blood cell (WBC) count D72.828 [place] [address] [id number] [place] [address] 90640- 9726 Oct, Morbid obesity due to excess calories E66.01 ; Chronic obstructive pulmonary disease, unspecified COPD type J44.9 ; History of lupus Z87.39 ; Hypothyroidism, unspecified type E03.9 ; Gastroesophageal reflux disease without esophagitis K21.9 ; Primary insomnia F51.01 and Chronic pain syndrome G89.4 [place] [address] [place] [id number] [place] [address] 22168- 7879 Sep, [place] [id number] [place] [address] 58250- 2319 Sep, [place] [id number] [place] [address] 92214- 7808 Sep, [place] [id number] [place] [address] 06159- 8811 Sep, Paranoid schizophrenia F20.0 [place] [id number] [place] [address] 05205- 5374 Sep, [place] [address] [id number] [place] [address] 67420- 2781 Sep, Paranoid schizophrenia F20.0 [facility] [address], [place] [address]- 9922 Sep, [facility] [id number] [place] [address] 74288- 1598 August, Paranoid schizophrenia F20.0 [facility] [address] [place] [address] 91776- 1588 Jul, [facility] [id number] [place] [address] 91357- 1995 Jul, Type 2 diabetes mellitus without complication, without long- term current use of insulin E11.9 ; Morbid obesity due to excess calories E66.01 ; Depression with anxiety F41.8 ; Hypothyroidism, unspecified type E03.9 ; Seasonal allergic rhinitis due to other allergic trigger J30.89 ; Pain, dental K08.89 and Gastroesophageal reflux disease without esophagitis K21.9 [facility] [address] [place] [address] [id number] Jul, Dental examination Z01.20 [place] [address] [place] [address] 14374- 0808 07 Jul, 2016 Paranoid schizophrenia F20.0 [place] [address] [place] [address] 05743- 9996 13 Jun, 2016 Paranoid schizophrenia F20.0 and Depression with anxiety F41.8 [place] [address] [place] [address] 95082- 0911 Jun, Paranoid schizophrenia F20.0 and Depression with anxiety F41.8 [facility] [address], [place] [address]- 7439 Jun, [place] [address] [id number] [place] [address] 91226- 6886 Jun, [facility] [address], [place] [address]66 Jun, Seasonal allergic rhinitis due to other allergic trigger J30.89 [facility] [id number] [place] [address] 27870 -4971 25 May, 2016 Sore throat J02.9 ; Other viral agents as the cause of diseases classified elsewhere B97.89 and Acute upper respiratory infection, unspecified J06.9 [place] [id number] [place] [address] 07550- 3211 08 May, 2016 Paranoid schizophrenia F20.0 and Depression with anxiety F41.8 [place] [address] [id number] [place] [address] 53960- 8084 Apr, Other seasonal allergic rhinitis J30.2 [place] [address] 80079- 9903 Apr, Paranoid schizophrenia F20.0 and Depression with anxiety F41.8 [facility] [place] [id number] [place] [address] 16647 -8901 Apr, Bronchitis J40 and Sore throat J02.9 [place] [address] [place] [id number] [place] [address] 58921- 8234 Apr, Type 2 diabetes mellitus without complication, without long- term current use of insulin E11.9 [facility] [place] [address] [place] [id number] [place] [address] 33472 -3635 Apr, Bronchitis J40 [place] [address] [id number] [place] [address] 94855- 8942 Apr, [place] [address] [place] [id number] [place] [address] 95307- 9643 Apr, [place] [address] [id number] [place] [address] 87447- 8287 Mar, Type 2 diabetes mellitus without complication, [...] R60.9 and Other seasonal allergic rhinitis J30.2 [place] [address] 41645- 6751 Mar, Paranoid schizophrenia F20.0 and Depression with anxiety F41.8 [place] [address] 26325- 3357 Feb, [place] [address] 89155- 6260 Feb, [place] [address] 36335- 6385 Feb, [place] [address] 69371- 5399 Feb, [place] [address] 27381- 3648 Feb, Type 2 diabetes mellitus without complication, without long- term current use of insulin E11.9 ; ARIAS on CPAP G47.33 and Preoperative evaluation to rule out surgical contraindication Z01.818 [place] [address] 24240- 7074 Feb, Paranoid schizophrenia F20.0 and Depression with anxiety F41.8 [place] [address] 81358- 8851 Jan, [place] [address] 95274- 2919 Jan, Paranoid schizophrenia F20.0 and Depression with anxiety F41.8 [place] [address] 22659- 8291 Jan, [place] [address] 17385- 1035 Jan, Muscle strain T14.8 [place] [address] [place] [address]- 2305 Jan, Paranoid schizophrenia F20.0 [facility] [id number] [place] [address] 57297- 0447 Jan, [facility] [id number] [place] [address] 10599- 3765 Jan, Paranoid schizophrenia F20.0 and Depression with anxiety F41.8 [facility] [id number] [place] [address] 91134- 9401 Jan, [facility] [id number] [place] [address] 45471- 6262 Jan, [facility] [id number] [place] [address] 47031- 3935 28 Dec, 2015 [facility] [id number] [place] [address] 32111- 1858 23 Dec, 2015 Paranoid schizophrenia F20.0 [facility] [id number] [place] [address] 77568- 0154 16 Dec, 2015 Paranoid schizophrenia F20.0 and Depression with anxiety F41.8 [facility] [id number] [place] [address] 60654- 6174 Nov, [facility] [address] [place] [address] 34797- 2863 Nov, Paranoid schizophrenia F20.0 [facility] [id number] [place] [address] 91857- 2422 Nov, Paranoid schizophrenia F20.0 and Depression with anxiety F41.8 [facility] [address] [address]- 7204 05 Nov, 2015 Type 2 diabetes mellitus without complication, without long- term current use of insulin E11.9 ; Paranoid schizophrenia F20.0 ; Chronic obstructive pulmonary disease, unspecified COPD type J44.9 ; Morbid obesity due to excess calories E66.01 and Parkinsonian tremor G20 [facility] [address] [place] [address] 14339- 3188 Nov, [place] [address] [place] [id number] [place] [address] 50133- 9800 Oct, Paranoid schizophrenia F20.0 [place] [address] [place] [id number] [place] [address] 47699- 6595 Oct, Paranoid schizophrenia F20.0 [place] [address] [place] [id number] [place] [address] 33029- 7992 Oct, Paranoid schizophrenia F20.0 and Depression with anxiety F41.8 [place] [address] [place] [id number] [place] [address] 67036- 8845 Oct, [place] [address] [id number] [place] [address] 22269- 9007 Oct, Paranoid schizophrenia F20.0 and Depression with anxiety F41.8 [place] [address] [place] [id number] [place] [address] 16940- 3080 Oct, Nasal sore J34.89 [place] [address] [place] [id number] [place] [address] 23205- 5280 Oct, Type 2 diabetes mellitus without complication, without long- term current use of insulin E11.9 ; Depression with anxiety F41.8 ; Hypothyroidism, unspecified type E03.9 and History of lupus Z87.39 [place] [address] [place] [address] 48010- 5147 Oct, [place] [address] [place] [address] 39115- 3803 Oct, Type 2 diabetes mellitus without complication, [...] R60.9 and History of lupus Z87.39 [facility] [id number] [place] [address] 00996- 7947 Feb, [facility] [id number] [place] [address] 40832- 1858 Jan, [facility] [address] [address]- [address] Jan, [facility] [id number] [place] [address] 23302- 7187 Jan, [facility] [id number] [place] [address] 94251- 2345 Dec, [facility] [id number] [place] [address] 54638- 3448 Nov, [facility] [id number] [place] [address] 76617- 7316 Nov, [facility] [id number] [place] [address] 90918- 4724 Oct, [facility] [id number] [place] [address] 68566- 3163 Oct, [facility] [id number] [place] [address] 57670- 6385 Oct, [facility] [id number] [place] [address] 63129- 6429 Sep, Allergic rhinitis 477.9 [facility] [id number] [place] [address] 11966- 2276 Sep, Rhinitis, allergic 477.9 [facility] [id number] [place] [address] 80289- 1372 Sep, Rhinitis, allergic 477.9 [facility] [id number] [place] [address] 47233- 7115 Sep, [facility] [place] [facility] [address] [id number] [place] [address] August, [facility] [place] [facility] [address] [id number] [place] [address] 95[address] August, [facility] [place] [facility] [address] [id number] [place] [address]- [address] August, [facility] [place] [facility] [address] [id number] [place] [address]- 9004 Jul, [facility] [place] [facility] [address] [id number] [place] [address] 9777 Jul, [facility] [place] [facility] [address] [id number] [place] [address]- 9805 Jul, [facility] [place] [facility] [address] [id number] [place] [address] 2734 Jun, [facility] [place] [facility] [address] [id number] [place] [address]- 9542 Jun, [facility] [place] [facility] [address] [id number] [place] [address] Jun, [facility] [place] [facility] [address] [id number] [place] [address] Jun, [facility] [place] [facility] [address] [id number], [place] [address] Jun, [facility] [place] [facility] [address] [id number], [place] [address] Jun, [facility] [place] [facility] [address] [id number] [place] [address] Jun, [facility] [place] [facility] [address] [id number] [place] [address]100 Jun, [facility] [place] [facility] [address] [id number] [place] [address] 0169 May, [facility] [place] [facility] [address] [id number] [place] [address] 17 May, 2014 [facility] [address] [id number] [place] [address] 7626 May, 2014 [facility] [place] [facility] [address] [id number] [place] [address] 2616 May, 2014 [facility] [address] [id number] [place] [address]16 Apr, [facility] [place] [facility] [address] [id number] [place] [address] Mar, [facility] [address] [id number] [place] [address] 0785 Mar, [facility] [place] [facility] [address] [id number] [place] [address] Mar, [facility] [place] [facility] [address] [id number] [place] [address] 6257 Mar, [facility] [address] [id number] [place] [address] 4[address] Mar, [facility] [place] [facility] [address] [id number] [place] [address] 2581 Mar, [facility] [address] [facility] [id number] [place] [address] Mar, [facility] [place] [facility] [address] [id number] [place] [address] 6940 Mar, [facility] [place] [facility] [address] [id number] [place] [address] 0204 Mar, [facility] [place] [facility] [address] [id number] [place] [address] Feb, [facility] [place] [facility] [address] [id number] [place] [address] 7216 Feb, [facility] [place] [facility] [address] [id number] [place] [address] Feb, [facility] [place] [facility] [address] [id number] [place] [address] 17 Feb, 2014 [facility] [place] [facility] [address] [id number] [place] [address]- 1398 14 Feb, 2014 [facility] [place] [facility] [address] [id number] [place] [address]- 0727 14 Feb, 2014 [facility] [place] [facility] [address] [id number] [place] [address]- 6658 Feb, [facility] [place] [facility] [address] [id number] [place] [address] 0929 Feb, [facility] [place] [facility] [address] [id number] [place] [address]- 1248 23 Jan, 2014 [facility] [place] [facility] [address] [id number] [place] [address]- 1409 23 Jan, 2014 [facility] [place] [facility] [address] [id number] [place] [address]- 2633 16 Jan, 2014 [facility] [place] [facility] [address] [id number] [place] [address]- 6651 16 Jan, 2014 [facility] [place] [facility] [address] [id number], [place] [address] 15 Jan, 2014 [facility] [place] [facility] [address] [id number], [place] [address] 8613 15 Jan, 2014 [facility] [place] [facility] [address] [id number], [place] [address]- 1249 14 Jan, 2014 [facility] [place] [facility] [address] [id number] [place] [address]- [address]237 14 Jan, 2014 [facility] [place] [facility] [address] [id number] [place] [address]- 5887 14 Jan, 2014 [facility] [place] [facility] [address] [id number], [place] [address]- [address] 14 Jan, 2014 [facility] [place] [facility] [address] [id number], [place] [address] Dec, [facility] [place] [facility] [address] [id number] [place] [address]- 1668 18 Dec, 2013 [facility] [place] [facility] [address] [id number] [place] [address]993 Dec, [facility] [place] [facility] [address] [id number] [place] [address]- 9654 Dec, [facility] [place] [facility] [address] [id number] [place] [address]- 6470 Nov, [facility] [place] [facility] [address] [id number] [place] [address]- 0795 Nov, [facility] [place] [facility] [address] [id number] [place] [address]- 1829 Nov, [facility] [place] [facility] [address] [id number] [place] [address]- 7653 Nov, [facility] [place] [facility] [address] [id number] [place] [address]- 7179 Nov, [facility] [place] [facility] [address] [id number] [place] [address]- 7434 Oct, [facility] [place] [facility] [address] [id number] [place] [address]- 8661 Oct, [facility] [place] [facility] [address] [id number] [place] [address]- 5826 Oct, [facility] [place] [facility] [address] [id number] [place] [address]- 3099 Oct, [facility] [place] [facility] [address] [id number] [place] [address]- 1161 Sep, [facility] [place] [facility] [address] [id number] [place] [address]- 6554 Sep, [facility] [place] [facility] [address] [id number] [place] [address]- 3039 Sep, [facility] [place] [facility] [address] [id number] [place] [address]- 8510 Sep, [facility] [place] [facility] [address] [id number] [place] [address]- 7995 Sep, [facility] [place] [facility] [address] [id number] [place] [address]- 4723 Sep, [facility] [place] [facility] [address] [id number] [place] [address]- 3541 Sep, [facility] [place] [facility] [address] [id number] [place] [address]- 6222 Sep, [facility] [place] [facility] [address] [id number] [place] [address]- 5467 August, [facility] [place] [facility] [address] [id number] [place] [address]- 3096 August, [facility] [place] [facility] [address] [id number] [place] [address]- 1674 August, [facility] [place] [facility] [address] [id number] [place] [address]- 7634 August, [facility] [place] [facility] [address] [id number] [place] [address]- 1805 August, [facility] [place] [facility] [address] [id number] [place] [address]- 3723 August, [facility] [place] [facility] [address] [id number] [place] [address]- 0366 August, [facility] [place] [facility] [address] [id number] [place] [address]- 7030 Jul, [facility] [place] [facility] [address] [id number] [place] [address]- 6751 Jul, [facility] [place] [facility] [address] [id number] [place] [address]- 7071 Jul, [facility] [place] [facility] [address] [id number] [place] [address]- 7205 Jul, [facility] [place] [facility] [address] [id number] [place] [address]- 3342 Jul, [facility] [place] [facility] [address] [id number] [place] [address]- 5418 Jul, [facility] [place] [facility] [address] [id number] [place] [address]- 5245 Jul, [facility] [place] [facility] [address] [id number] [place] [address]- 8770 Jul, [facility] [place] [facility] [address] [id number] [place] [address]- 9429 Jul, [facility] [place] [facility] [address] [id number] [place] [address]- 8118 Jul, [facility] [place] [facility] [address] [id number] [place] [address]- 0660 Jul, [facility] [place] [facility] [address] [id number] [place] [address]- 4664 Jul, [facility] [place] [facility] [address] [id number] [place] [address]- 5190 Jun, [facility] [place] [facility] [address] [id number] [place] [address]- 8465 Jun, [facility] [place] [facility] [address] [id number] [place] [address]- 2646 Jun, [facility] [place] [facility] [address] [id number] [place] [address]- 3703 Jun, [facility] [place] [facility] [address] [id number] [place] [address]- 6429 Jun, [facility] [place] [facility] [address] [id number] [place] [address]- 7224 May, [facility] [place] [facility] [address] [id number] [place] [address]- 7160 May, [facility] [place] [facility] [address] [id number] [place] [address]- 3734 May, 2013 [facility] [place] [facility] [address] [id number] [place] [address]- 7537 May, 2013 [facility] [place] [facility] [address] [id number] [place] [address] May, 2013 [facility] [place] [facility] [address] [id number] [place] [address]- 0126 May, 2013 [facility] [place] [facility] [address] [id number] [place] [address]- 6657 May, [facility] [place] [facility] [address] [id number] [place] [address]- 9801 May, [facility] [place] [facility] [address] [facility] [id number] [place] [address]- 2441 Mar, [facility] [place] [facility] [address] [facility] [id number] [place] [address]- 8887 Mar, [facility] [place] [facility] [address] [id number] [place] [address]- 4228 Mar, [facility] [place] [facility] [address] [facility] [id number] [place] [address]- 5663 Mar, [facility] [place] [facility] [address] [facility] [id number] [place] [address] Mar, [facility] [place] [facility] [address] [facility] [id number] [place] [address]- 5473 Mar, [facility] [place] [facility] [address] [id number] [place] [address]- 8722 Feb, [facility] [place] [facility] [address] [id number] [place] [address]- 1246 Feb, [facility] [place] [facility] [address] [facility] [id number] [place] [address]- 0472 Jan, [facility] [place] [facility] [address] [id number] [place] [address]- 2423 Jan, [facility] [place] [facility] [address] [id number] [place] [address]- 2353 Jan, [facility] [place] [facility] [address] [id number] [place] [address]- 5791 Jan, [facility] [place] [facility] [address] [id number] [place] [address]- 5389 Jan, [facility] [place] [facility] [address] [id number] [place] [address]- 9132 Jan, [facility] [place] [facility] [address] [id number] [place] [address]- 0311 Jan, [facility] [place] [facility] [address] [id number] [place] [address]- 9928 Jan, [facility] [place] [facility] [address] [id number] [place] [address]- 1933 Jan, [facility] [place] [facility] [address] [id number] [place] [address]- 6076 Jan, [facility] [place] [facility] [address] [id number] [place] [address]- 5398 Dec, [facility] [place] [facility] [address] [id number] [place] [address]- 6656 Nov, [facility] [place] [facility] [address] [id number], [place] [address]- 8852 Nov, [facility] [place] [facility] [address] [id number], [place] [address]- 2377 Nov, [facility] [place] [facility] [address] [id number] [place] [address]- 9909 Oct, [facility] [place] [facility] [address] [id number], [place] [address]- 5921 Oct, [facility] [place] [facility] [address] [id number] [place] [address]- 6778 August, [facility] [place] [facility] [address] [id number] [id number] [address] Apr, [facility] [id number], [place] [address] 3357 Apr, [facility] [id number], [place] [address]- 8783 Feb, [facility] [id number], [place] [address]- 0726 Feb, [facility] [id number], [place] [address]- 8053 Dec, [facility] [id number] [place] [address]- 2592 Dec, [facility] [id number], [place] [address]- 8338 Oct, [facility] [id number], [place] [address]- 7759 Oct, [facility] [id number], [place] [address]- 0540 Oct, [facility] [id number], [place] [address]- 6587 Jul, IMMUNIZATIONS No Known Immunizations SOCIAL HISTORY Never Assessed REASON FOR VISIT Lab (walk-in) PLAN OF CARE VITAL SIGNS MEDICATIONS Unknown Medications RESULTS No Results PROCEDURES Procedure Date Ordered Result Body Site LAB NOT BILLED BY [facility] May 05, 2017 VENIPJANE, ROUTINE* May 05, 2017 INSTRUCTIONS MEDICATIONS ADMINISTERED No [...] for psychosis/mental illness , last one in [place] at [facility] 4 years ago
--- OUTSIDE RECORDS SUMMARY | 2018-09-02 14:35 | XMS REPORT ---
Author Author RADHA ROJAS [facility] eClinical[employer] Address Unknown Phone Unavailable Care Team Providers Care Editor Greeting Card Name Role Phone RADHA ROJAS CP Unavailable Allergies No Known Allergies Problems Problem Type Condition ICD-9 Code Onset Dates Condition Status Problem Essential [...] Instructions Start Date End Date Status Dosage [place] [facility] [id number] 100-25 mcg/dose Inhalation Once a day July 05, 2014 inhale 1 puff by inhalation route once daily at the same time each day Results No Known Results Summary Purpose eClinicalWorks Submission
--- OUTSIDE RECORDS SUMMARY | 2018-09-02 14:35 | XMS REPORT ---
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 Name Role Phone STRICKLANDSOTO Carias Unavailable PROBLEMS Type Condition ICD9-CM Code [id number] Code Onset Dates Condition Status SNOMED Code Problem Other seasonal allergic rhinitis J30.2 Active 677371505 Problem Gastroesophageal reflux disease, esophagitis presence not specified K21.9 Active 606302319 Problem Tobacco abuse Z72.0 Active 778251974 Problem Seasonal allergic rhinitis due to pollen J30.1 Active 52785743 Problem History of lupus Z87.39 Active 897148793 Problem COPD exacerbation J44.1 Active 149898966 Problem OAB (overactive bladder) N32.81 Active 965815345 Problem Morbid obesity due to excess calories E66.01 Active 540969451 Problem Dyslipidemia E78.5 Active 123966147 Problem Migraine without aura and without status migrainosus, not intractable G43.009 Active 944312811 Problem Hypothyroidism (acquired) E03.9 Active 788366013 Problem Essential hypertension I10 Active 24276747 Problem Type 2 diabetes mellitus without complication, without long-term current use of insulin E11.9 Active 154494739 Problem Gastroesophageal reflux disease without esophagitis K21.9 Active 161112790 Problem Chronic pain syndrome G89.4 Active 295166744 Problem Paranoid schizophrenia F20.0 Active 53490424 Problem Primary insomnia F51.01 Active 7337928 Problem DM neuro manif type II E11.49 Active 04190808 Problem Depression with anxiety F41.8 Active 309992416 Problem Seasonal allergic rhinitis due to other allergic trigger J30.89 Active 468943706 Problem Menopausal syndrome (hot flashes) N95.1 Active 083883387 Problem Chronic obstructive pulmonary disease, unspecified COPD type J44.9 Active 20671808 Problem Schizoaffective disorder, depressive type F25.1 Active 15324961 Problem Other allergic rhinitis J30.89 Active 943584503 ALLERGIES No Information ENCOUNTERS Encounter Location Date Diagnosis [facility] [id number] [place] [address] 89043- 4947 Nov, [facility] [address] 55336- 2236 Sep, [facility] [address] 64389- 3265 Jul, Schizoaffective disorder, depressive type F25.1 [facility] [address] 03409- 5385 Jul, [place] [address] 29765- 2500 13 Jul, 2017 Hypothyroidism (acquired) E03.9 [place] [address] 15872- 3055 11 Jul, 2017 Chronic obstructive pulmonary disease, unspecified COPD type J44.9 and Type 2 diabetes mellitus without complication, without long-term current use of insulin E11.9 [place] [id number] [place] [address] 97070- 9645 Jul, Paranoid schizophrenia F20.0 [place] [id number] [place] [address] 49227- 6693 Jun, Hypothyroidism (acquired) E03.9 and Seasonal allergic rhinitis due to pollen J30.1 [facility] [id number] [place] [address] 46213 -5113 Jun, Shortness of breath at rest R06.02 ; COPD exacerbation J44.1 and BMI 45.0-49.9, adult Z68.42 [facility] [address] 39297- 7667 Jun, [facility] [address] 02193- 1561 Jun, Paranoid schizophrenia F20.0 ; Depression with anxiety F41.8 and BMI 45.0-49.9, adult Z68.42 [facility] [id number] [place] [address] 62671- 1420 Jun, Schizoaffective disorder, depressive type F25.1 [facility] [id number] [place] [address] [id number] Jun, Dental caries K02.9 [facility] [id number] [place] [address] 71091- 1203 Jun, Paranoid schizophrenia F20.0 [facility] [id number] [place] [address] 30198- 2058 May, Migraine without aura and without status migrainosus, not intractable G43.009 ; DM neuro manif type II E11.49 and Type 2 diabetes mellitus without complication, without long-term current use of insulin E11.9 [facility] [id number] [place] [address] 75429- 5434 May, Migraine without aura and without status migrainosus, not intractable G43.009 [facility] [id number] [place] [address] 43276- 1227 May, Depression with anxiety F41.8 [facility] [id number] [place] [address] [id number] May, [facility] [id number] [place] [address] 69377- 9846 May, [facility] [id number] [place] [address] 21218- 0143 May, [facility] [id number] [place] [address] 66204- 7665 May, Hypothyroidism (acquired) E03.9 [facility] [id number] [place] [address] 79778- 0554 May, Paranoid schizophrenia F20.0 [facility] [id number] [place] [address] 56269- 1381 08 Feb, 2018 Type 2 diabetes mellitus [...] N32.81 and Controlled substance agreement signed Z79.899 [place] [address] 95057- 1371 May, Controlled substance agreement signed Z79.899 [place] [address] 52824- 5719 Apr, [facility] [address] [id number] Apr, Dental examination Z01.20 [place] [address] 73390- 9713 Apr, Paranoid schizophrenia F20.0 [place] [address] 22862- 0212 Apr, Hypertension, unspecified type I10 [place] [address] 00514- 8645 Apr, Paranoid schizophrenia F20.0 [place] [address] 87378- 1552 Apr, [place] [address] 60613- 2313 Apr, Tobacco abuse Z72.0 [facility] [address] 95457- 6340 Apr, [place] [address] [place] [address]- 8505 Mar, [facility] [address] 61500- 6614 27 Mar, 2017 Paranoid schizophrenia F20.0 and BMI 45.0-49.9, adult Z68.42 [facility] [address] 50554- 9729 15 Mar, 2017 Schizoaffective disorder, depressive type F25.1 [place] [address] 41085- 6897 Mar, [place] [address] 98588- 5722 Mar, Hypothyroidism, unspecified type E03.9 [place] [address] 70477- 8095 12 Mar, 2017 Schizoaffective disorder, depressive type F25.1 [facility] [address] 55138 -3548 Feb, Gastroenteritis K52.9 and BMI 45.0-49.9, adult Z68.42 [place] [address] 74806- 9364 22 Feb, 2017 [place] [id number] [place] [address] 18330- 9972 Feb, [place] [id number] [place] [address] 71052- 0766 Feb, [place] [address] 72100- 4828 16 Feb, 2017 [facility] [address] 96095- 8734 10 Feb, 2017 Paranoid schizophrenia F20.0 [facility] [id number] [place] [address] 48405- 1392 06 Feb, 2017 Gastroesophageal reflux disease without esophagitis K21.9 ; Other seasonal allergic rhinitis J30.2 ; Other allergic rhinitis J30.89 ; Tobacco abuse Z72.0 and BMI 40.0-44.9, adult Z68.41 [place] [address] 13274- 1173 Feb, Onychomycosis B35.1 ; Callus of foot L84 and DM neuro manif type II E11.49 [place] [address] 59091- 5491 Jan, Chronic allergic rhinitis J30.9 [place] [address] 01235- 0548 Jan, [place] [address] 27262- 3996 Jan, Schizoaffective disorder, depressive type F25.1 [place] [address] 94693- 4329 Jan, [facility] [address] 99701 -2247 Jan, Sore throat J02.9 and Seasonal allergic rhinitis due to other allergic trigger J30.89 [place] [address] 82478- 1566 Jan, [facility] [address] 54284- 6245 Jan, [facility] [address] 14223 -7629 Jan, Chronic allergic rhinitis J30.9 [facility] [address] 99309- 1079 27 Dec, 2016 Paranoid schizophrenia F20.0 ; Primary insomnia F51.01 and Schizoaffective disorder, depressive type F25.1 [facility] [address] 71104- 8232 Dec, Chronic pain syndrome G89.4 ; Cervicalgia of occipito- atlanto-axial region M54.2 ; Menopausal syndrome (hot flashes) N95.1 and Encounter for immunization Z23 [place] [address] 42375- 3322 14 Dec, 2016 [facility] [address] 93492- 7262 13 Dec, 2016 [place] [address] 53476- 2276 08 Dec, 2016 Paranoid schizophrenia F20.0 [place] [address] 41171- 9789 Dec, Schizoaffective disorder, depressive type F25.1 [place] [address] 99296- 9906 Nov, Hypothyroidism, unspecified type E03.9 [facility] [address] 09092 -5916 Nov, Acute seasonal allergic rhinitis due to other allergen J30.89 [place] [id number] [place] [address] 32717- 8136 Nov, [place] [id number] [place] [address] 97293- 9556 Nov, Hypothyroidism, unspecified type E03.9 and Other elevated white blood cell (WBC) count D72.828 [place] [id number] [place] [address] 46228- 7047 Nov, Schizoaffective disorder, depressive type F25.1 [place] [id number] [place] [address] 87808- 3058 Nov, Paranoid schizophrenia F20.0 [place] [id number] [place] [address] 84419- 0728 Nov, Type 2 diabetes mellitus without complication, without long- term current use of insulin E11.9 ; Morbid obesity due to excess calories E66.01 and Chronic pain syndrome G89.4 [place] [address] [address]- 4517 Oct, Paranoid schizophrenia F20.0 [place] [id number] [place] [address] 22208- 8170 Oct, [place] [id number] [place] [address] 02547- 6438 Oct, Schizoaffective disorder, depressive type F25.1 [place] [id number] [place] [address] 17272- 9007 Oct, Hypothyroidism, unspecified type E03.9 and Other elevated white blood cell (WBC) count D72.828 [place] [id number] [place] [address] 19212- 4700 Oct, Morbid obesity due to excess calories E66.01 ; Chronic obstructive pulmonary disease, unspecified COPD type J44.9 ; History of lupus Z87.39 ; Hypothyroidism, unspecified type E03.9 ; Gastroesophageal reflux disease without esophagitis K21.9 ; Primary insomnia F51.01 and Chronic pain syndrome G89.4 [place] [id number] [place] [address] 71300- 8767 Sep, [place] [id number] [place] [address] 09136- 6751 Sep, [place] [address] [address]- 1766 Sep, [place] [id number] [place] [address] 38246- 5401 Sep, Paranoid schizophrenia F20.0 [place] [id number] [place] [address] 49540- 1083 Sep, [place] [id number] [place] [address] 67302- 8124 Sep, Paranoid schizophrenia F20.0 [place] [id number] [place] [address] 97153- 4753 Sep, [place] [id number] [place] [address] 26146- 1678 August, Paranoid schizophrenia F20.0 [place] [id number] [place] [address] 84626- 1033 Jul, [place] [id number] [place] [address] 22660- 4988 Jul, Type 2 diabetes mellitus without complication, without long- term current use of insulin E11.9 ; Morbid obesity due to excess calories E66.01 ; Depression with anxiety F41.8 ; Hypothyroidism, unspecified type E03.9 ; Seasonal allergic rhinitis due to other allergic trigger J30.89 ; Pain, dental K08.89 and Gastroesophageal reflux disease without esophagitis K21.9 [facility] [id number] [place] [address] [id number] 12 Jul, 2016 Dental examination Z01.20 [place] [id number] [place] [address] 96368- 3850 07 Jul, 2016 Paranoid schizophrenia F20.0 [place] [id number] [place] [address] 19583- 7421 13 Jun, 2016 Paranoid schizophrenia F20.0 and Depression with anxiety F41.8 [place] [id number] [place] [address] 90609- 9720 Jun, Paranoid schizophrenia F20.0 and Depression with anxiety F41.8 [place] [id number] [place] [address] 08412- 9370 Jun, [place] [id number] [place] [address] 01063- 6375 Jun, [facility] [id number] [place] [address] 57968 -2589 Jun, Seasonal allergic rhinitis due to other allergic trigger J30.89 [facility] [id number] [place] [address] 03006 -1383 May, Sore throat J02.9 ; Other viral agents as the cause of diseases classified elsewhere B97.89 and Acute upper respiratory infection, unspecified J06.9 [place] [id number] [place] [address] 09686- 1643 May, Paranoid schizophrenia F20.0 and Depression with anxiety F41.[address] 99219- 8868 Apr, Other seasonal allergic rhinitis J30.2 [place] [address] 98608- 2061 Apr, Paranoid schizophrenia F20.0 and Depression with anxiety F41.8 [facility] [place] [id number] [place] [address] 26557 -6740 Apr, Bronchitis J40 and Sore throat J02.9 [place] [address] 68717- 5704 Apr, Type 2 diabetes mellitus without complication, without long- term current use of insulin E11.9 [facility] [place] [id number] [place] [address] 19781 -0612 Apr, Bronchitis J40 [place] [id number] [place] [address] 77523- 7232 Apr, [place] [id number] [place] [address] 83803- 4557 Apr, [place] [address] 28961- 7256 Mar, Type 2 diabetes mellitus without complication, [...] R60.9 and Other seasonal allergic rhinitis J30.2 [facility] [address] [address]- 8618 09 Mar, 2016 Paranoid schizophrenia F20.0 and Depression with anxiety F41.8 [facility] [id number] [address]- 0177 Feb, [facility] [id number] [place] [address] 34889- 3336 Feb, [facility] [id number] [place] [address] 88113- 0563 Feb, [facility] [id number] [place] [address] 95809- 9259 Feb, [facility] [id number] [place] [address] 18307- 7938 Feb, Type 2 diabetes mellitus without complication, without long- term current use of insulin E11.9 ; ARIAS on CPAP G47.33 and Preoperative evaluation to rule out surgical contraindication Z01.818 [facility] [address] [address]- 4456 Feb, Paranoid schizophrenia F20.0 and Depression with anxiety F41.8 [facility] [address] [address]- 7490 Jan, [facility] [address] [address]- 5196 Jan, Paranoid schizophrenia F20.0 and Depression with anxiety F41.8 [facility] [address] [address]- 8334 17 Jan, 2016 [facility] [id number] [place] [address] 42722- 8245 14 Jan, 2016 Muscle strain T14.8 [facility] [address] [address]- 0888 Jan, Paranoid schizophrenia F20.0 [facility] [id number] [address]- 4693 Jan, [facility] [address] [address]- 0490 Jan, Paranoid schizophrenia F20.0 and Depression with anxiety F41.8 [facility] [address] [address]- 0307 Jan, [facility] [id number] [place] [address] 62566- 8362 Jan, [facility] [address] [address]- 9869 Dec, [facility] [id number] [place] [address] 89008- 9166 Dec, Paranoid schizophrenia F20.0 [facility] [address] [address]- 4273 Dec, Paranoid schizophrenia F20.0 and Depression with anxiety F41.8 [facility] [address] [address]- 6192 Nov, [facility] [id number] [address]- 5666 Nov, Paranoid schizophrenia F20.0 [facility] [address] [address]- 8003 Nov, Paranoid schizophrenia F20.0 and Depression with anxiety F41.8 [facility] [address] [address]- 8135 Nov, Type 2 diabetes mellitus without complication, without long- term current use of insulin E11.9 ; Paranoid schizophrenia F20.0 ; Chronic obstructive pulmonary disease, unspecified COPD type J44.9 ; Morbid obesity due to excess calories E66.01 and Parkinsonian tremor G20 [facility] [address] [address]- 7833 Nov, [facility] [id number] [address]- 2240 Oct, Paranoid schizophrenia F20.0 [place] [id number] [place] [address] 96111- 5049 Oct, Paranoid schizophrenia F20.0 [place] [id number] [place] [address] 47908- 2879 Oct, Paranoid schizophrenia F20.0 and Depression with anxiety F41.8 [place] [id number] [place] [address] 80975- 5104 Oct, [place] [id number] [place] [address] 21821- 1138 Oct, Paranoid schizophrenia F20.0 and Depression with anxiety F41.8 [place] [id number] [place] [address] 59078- 0113 Oct, Nasal sore J34.89 [place] [id number] [place] [address] 63145- 4710 Oct, Type 2 diabetes mellitus without complication, without long- term current use of insulin E11.9 ; Depression with anxiety F41.8 ; Hypothyroidism, unspecified type E03.9 and History of lupus Z87.39 [place] [address] [place] [address] 21749- 4817 Oct, [place] [id number] [place] [address] 85243- 4014 Oct, Type 2 diabetes mellitus without complication, [...] edema R60.9 and History of lupus Z87.39 [facility] [address] [facility] [id number] [place] [address]- 3235 Feb, [facility] [address] [facility] [id number] [place] [address]- 5610 Jan, [facility] [address] [facility] [id number] [place] [address]- 9436 Jan, [facility] [address] [facility] [id number] [place] [address]- 7812 Jan, [facility] [address] [facility] [id number] [place] [address]- 0219 Dec, [facility] [id number] [address]- 6995 Nov, [facility] [address] [address]- 7291 Nov, [facility] [address] [address]- 0881 Oct, [facility] [id number] [address]- 5815 Oct, [facility] [address], [place] [address]- 8613 Oct, [facility] [address], [place] [address]- 2641 Sep, Allergic rhinitis 477.9 [facility] [id number] [address]- 0893 Sep, Rhinitis, allergic 477.9 [facility] [id number] [address]- 2398 Sep, Rhinitis, allergic 477.9 [facility] [id number] [address]- 4131 Sep, [facility] [address], [place] [address]- 2723 August, [facility] [place] [facility] [address] [id number] [place] [address]- 1101 August, [facility] [place] [facility] [address] [id number] [place] [address]- 0038 August, [facility] [place] [facility] [address] [id number] [place] [address]- 2279 Jul, [facility] [place] [facility] [address] [id number] [place] [address]- 9675 Jul, [facility] [place] [facility] [address] [id number] [place] [address]- 4733 Jul, [facility] [place] [facility] [address] [id number] [place] [address]- 6612 Jun, [facility] [place] [facility] [address] [id number] [place] [address]- 4123 Jun, [facility] [place] [facility] [address] [id number] [place] [address] Jun, [facility] [place] [facility] [address] [id number] [place] [address] Jun, [facility] [place] [facility] [address] [id number] [place] [address] Jun, [facility] [place] [facility] [address] [id number] [place] [address] Jun, [facility] [place] [facility] [address] [id number] [place] [address] Jun, [facility] [place] [facility] [address] [id number] [place] [address] Jun, [facility] [place] [facility] [address] [id number] [place] [address] May, [facility] [place] [facility] [address] [id number] [place] [address] May, [facility] [place] [facility] [address] [id number] [place] [address] 11 May, 2014 [facility] [place] [facility] [address] [id number] [place] [address] May, [facility] [place] [facility] [address] [id number] [place] [address] Apr, [facility] [place] [facility] [address] [id number] [place] [address] Mar, [facility] [place] [facility] [address] [id number] [place] [address] Mar, [facility] [place] [facility] [address] [id number] [place] [address] Mar, [facility] [place] [facility] [address] [id number] [place] [address] Mar, [facility] [place] [facility] [address] [id number] [place] [address] Mar, [facility] [place] [facility] [address] [id number] [place] [address] Mar, [facility] [place] [facility] [address] [id number] [place] [address] Mar, [facility] [place] [facility] [address] [facility] [id number] [place] [address] Mar, [facility] [place] [facility] [address] [id number] [place] [address] Mar, [facility] [place] [facility] [address] [id number] [place] [address] Feb, [facility] [place] [facility] [address] [id number] [place] [address] Feb, [facility] [place] [facility] [address] [id number] [place] [address] 74[address] Feb, [facility] [place] [facility] [address] [id number] [place] [address] Feb, [facility] [place] [facility] [address] [id number] [place] [address] 14 Feb, 2014 [facility] [place] [facility] [address] [id number] [place] [address] 14 Feb, 2014 [facility] [place] [facility] [address] [id number] [place] [address] 7686 Feb, [facility] [place] [facility] [address] [id number] [place] [address] 8[address] Feb, [facility] [place] [facility] [address] [id number] [place] [address] Jan, [facility] [place] [facility] [address] [id number] [place] [address] 23 Jan, 2014 [facility] [place] [facility] [address] [id number] [place] [address] 3899 16 Jan, 2014 [facility] [place] [facility] [address] [id number] [place] [address] 16 Jan, 2014 [facility] [place] [facility] [address] [id number] [place] [address] 15 Jan, 2014 [facility] [place] [facility] [address] [id number] [place] [address] 8673 15 Jan, 2014 [facility] [place] [facility] [address] [id number] [place] [address] 2987 14 Jan, 2014 [facility] [place] [facility] [address] [id number] [place] [address] 5165 14 Jan, 2014 [facility] [place] [facility] [address] [id number] [place] [address]- 7550 14 Jan, 2014 [facility] [place] [facility] [address] [id number] [place] [address] 0933 14 Jan, 2014 [facility] [place] [facility] [address] [id number] [place] [address] 6435 18 Dec, 2013 [facility] [place] [facility] [address] [id number] [place] [address] 8[address] Dec, [facility] [place] [facility] [address] [id number] [place] [address] 97[address] Dec, [facility] [place] [facility] [address] [id number] [place] [address] 1375 Dec, [facility] [place] [facility] [address] [id number] [place] [address] 7368 Nov, [facility] [place] [facility] [address] [id number] [place] [address] 72[address] Nov, [facility] [place] [facility] [address] [id number] [place] [address] 5668 Nov, [facility] [place] [facility] [address] [id number] [place] [address] 5467 Nov, [facility] [place] [facility] [address] [id number] [place] [address] 7930 Nov, [facility] [place] [facility] [address] [id number] [place] [address] 4834 Oct, [facility] [place] [facility] [address] [id number] [place] [address] 4495 Oct, [facility] [place] [facility] [address] [id number] [place] [address]307 Oct, [facility] [place] [facility] [address] [id number] [place] [address] 3006 Oct, [facility] [place] [facility] [address] [id number] [place] [address] 0077 Sep, [facility] [place] [facility] [address] [id number] [place] [address] 5[address] Sep, [facility] [place] [facility] [address] [id number] [place] [address] 2989 Sep, [facility] [place] [facility] [address] [id number] [place] [address] 2142 Sep, [facility] [place] [facility] [address] [id number] [place] [address] 7663 Sep, [facility] [address] [id number] [place] [address] 4548 Sep, [facility] [place] [facility] [address] [id number] [place] [address] Sep, [facility] [address] [id number] [place] [address] 455[address] Sep, [facility] [place] [facility] [address] [id number] [place] [address] August, [facility] [address] [id number] [place] [address] 8060 August, [facility] [address] [id number] [place] [address] 7667 August, [facility] [address] [id number] [place] [address] 4057 August, [facility] [address] [id number] [place] [address] 7238 August, [facility] [place] [facility] [address] [id number] [place] [address] 9[address] August, [facility] [address] [id number] [place] [address] 3283 August, [facility] [place] [facility] [address] [id number] [place] [address] 0772 Jul, [facility] [place] [facility] [address] [id number] [place] [address] 3352 Jul, [facility] [place] [facility] [address] [id number] [place] [address] 2920 Jul, [facility] [place] [facility] [address] [id number] [place] [address]- 9468 Jul, [facility] [place] [facility] [address] [id number] [place] [address] 5354 Jul, [facility] [place] [facility] [address] [id number] [place] [address] 4[address] Jul, [facility] [place] [facility] [address] [id number] [place] [address]- 6498 Jul, [facility] [place] [facility] [address] [id number] [place] [address]- 3946 Jul, [facility] [place] [facility] [address] [id number] [place] [address]- 1484 Jul, [facility] [place] [facility] [address] [id number] [place] [address] 4007 Jul, [facility] [place] [facility] [address] [id number] [place] [address]- 2097 Jul, [facility] [place] [facility] [address] [id number] [place] [address]- 3396 Jul, [facility] [place] [facility] [address] [id number] [place] [address]- 3051 Jun, [facility] [place] [facility] [address] [id number] [place] [address] 0624 Jun, [facility] [place] [facility] [address] [id number] [place] [address]- 0048 Jun, [facility] [place] [facility] [address] [id number] [place] [address]- 9616 Jun, [facility] [place] [facility] [address] [id number] [place] [address]- 2150 Jun, [facility] [place] [facility] [address] [id number] [place] [address]- 9237 May, [facility] [place] [facility] [address] [id number] [place] [address]- 2672 May, [facility] [place] [facility] [address] [id number] [place] [address]- 2154 May, [facility] [place] [facility] [address] [id number] [place] [address]- 8200 May, 2013 [facility] [address] [id number] [place] [address]- 3166 May, 2013 [facility] [address] [id number] [place] [address] May, 2013 [facility] [address] [id number] [place] [address]- 7644 May, 2013 [facility] [address] [id number] [place] [address]- 4991 May, 2013 [facility] [address] [facility] [id number] [place] [address] Mar, [facility] [address] [facility] [id number] [place] [address] Mar, [facility] [address] [facility] [id number] [place] [address]- 3908 Mar, [facility] [address] [facility] [id number] [place] [address]- 7237 Mar, [facility] [address] [facility] [id number] [place] [address]- 8887 Mar, [facility] [address] [facility] [id number] [place] [address]- 8836 Mar, [facility] [place] [facility] [address] [facility] [id number] [place] [address]- 6768 Feb, [facility] [address] [id number] [place] [address]- 9629 Feb, [facility] [place] [facility] [address] [facility] [id number] [place] [address]- 5942 Jan, [facility] [place] [facility] [address] [facility] [id number] [place] [address]- 1087 Jan, [facility] [address] [facility] [id number] [place] [address]- 7038 Jan, [facility] [place] [facility] [address] [id number] [place] [address]- 1293 Jan, [facility] [place] [facility] [address] [id number] [place] [address]- 1182 Jan, [facility] [place] [facility] [address] [id number] [place] [address]- 9894 Jan, [facility] [place] [facility] [address] [id number] [place] [address]- 8308 Jan, [facility] [place] [facility] [address] [id number] [place] [address]- 7429 Jan, [facility] [place] [facility] [address] [id number] [place] [address]- 2484 Jan, [facility] [place] [facility] [address] [id number] [place] [address]- 9695 Jan, [facility] [place] [facility] [address] [id number] [place] [address]- 1183 Dec, [facility] [place] [facility] [address] [id number] [place] [address]- 8217 Nov, [facility] [place] [facility] [address] [id number] [address]- 7834 Nov, [facility] [place] [facility] [address] [id number] [address]- 0251 Nov, [facility] [place] [facility] [address] [id number] [address]- 3302 Oct, [facility] [place] [facility] [address] [id number] [place] [address]- 6930 Oct, [facility] [place] [facility] [address] [id number] [place] [address]- 8985 August, [facility] [place] [facility] [address] [id number], [place] [address]- 0750 Apr, [facility] [place] [facility] [address] [id number] [address] 8858 Apr, [facility] [address] [id number] [address] Feb, [facility] [address] [id number] [address] 4057 Feb, [facility] [id number] [address] 8998 Dec, [facility] [id number] [place] [address] 3422 Dec, [facility] [id number] [place] [address]- 0411 Oct, [facility] [id number] [address]- 4388 Oct, [facility] [id number], [place] [address]- 8020 Oct, [facility] [address] [id number] [address] 4788 Jul, IMMUNIZATIONS No Known Immunizations SOCIAL HISTORY [...] for psychosis/mental illness , last one in [place] at [facility] 4 years ago
--- OUTSIDE RECORDS SUMMARY | 2018-09-02 14:35 | XMS REPORT ---
Author Author JAMIL SANCHES [facility] Address [address] [place] [address] Care Team Providers Care Systems Operator Name Role Phone JAMIL SANCHES Unavailable PROBLEMS Type Condition ICD9-CM Code [id number] Code Onset Dates Condition Status SNOMED Code Problem History of lupus Z87.39 Active 543817482 Problem ARIAS on CPAP G47.33 Active 62928551 Problem OAB (overactive bladder) N32.81 Active 380205020 Problem Menopausal syndrome (hot flashes) N95.1 Active 829382393 Problem Other elevated white blood cell (WBC) count D72.828 Active 925348130 Problem Seasonal allergic rhinitis due to other allergic trigger J30.89 Active 578177886 Problem Gastroesophageal reflux disease without esophagitis K21.9 Active 620328682 Problem Primary insomnia F51.01 Active 2800604 Problem Schizoaffective disorder, depressive type F25.1 Active 21781929 Problem Morbid obesity due to excess calories E66.01 Active 521579084 Problem Depression with anxiety F41.8 Active 819419859 Problem Chronic obstructive pulmonary disease, unspecified COPD type J44.9 Active 54104946 Problem Peripheral edema R60.9 Active 010779634 Problem Paranoid schizophrenia F20.0 Active 03153127 Problem Chronic pain syndrome G89.4 Active 840007732 Problem Parkinsonian tremor G20 Active 101800211 Problem Hypothyroidism, unspecified type E03.9 Active 76291039 Problem Type 2 diabetes mellitus without complication, without long-term current use of insulin E11.9 Active 040524987 ALLERGIES No Information SOCIAL HISTORY Never Assessed PLAN OF CARE Activity Details Follow Up prn Reason:Depression VITAL SIGNS MEDICATIONS Unknown Medications RESULTS No Results PROCEDURES Procedure Date Ordered Result Body Site Psychotherapy, patient &/family, 30 minutes, established patient July 06, 2016 IMMUNIZATIONS No Known Immunizations MEDICAL (GENERAL) [...]
--- OUTSIDE RECORDS SUMMARY | 2018-09-02 14:35 | XMS REPORT ---
Author Author RADHA ROJAS Organization [employer] Address Unknown Phone Unavailable Care Team Providers Care Jewel Bearing Grinder Name Role Phone RADHA ROJAS CP Unavailable [...] Date End Date Status Dosage Pravastatin Sodium [facility] [address]-27 20 MG Orally Once a day September 21, 2014 1 tablet Results No Known Results Summary Purpose [employer] Submission
--- OUTSIDE RECORDS SUMMARY | 2018-09-02 14:36 | XMS REPORT ---
Author Author EM SOTO Organization [facility] Address [address] [place] [address] Care Team Providers Care Makeup Artist Name Role Phone STRICKLANDTRINH CariasELE Unavailable PROBLEMS Type Condition ICD9-CM Code [id number] Code Onset Dates Condition Status SNOMED Code Problem Morbid obesity due to excess calories E66.01 Active 333478619 Problem Type 2 diabetes mellitus without complication, without long-term current use of insulin E11.9 Active 167053231 Problem Paranoid schizophrenia F20.0 Active 03896521 Problem Other elevated white blood cell (WBC) count D72.828 Active 920917709 Problem Primary insomnia F51.01 Active 6168751 Problem Gastroesophageal reflux disease without esophagitis K21.9 Active 959406823 Problem ARIAS on CPAP G47.33 Active 38436620 Problem Schizoaffective disorder, depressive type F25.1 Active 64901435 Problem Seasonal allergic rhinitis due to other allergic trigger J30.89 Active 897379940 Problem History of lupus Z87.39 Active 741451217 Problem Peripheral edema R60.9 Active 532182143 Problem OAB (overactive bladder) N32.81 Active 315976415 Problem Depression with anxiety F41.8 Active 881975472 Problem Parkinsonian tremor G20 Active 546193881 Problem Chronic pain syndrome G89.4 Active 929670745 Problem Hypothyroidism, unspecified type E03.9 Active 03249095 Problem Chronic obstructive pulmonary disease, unspecified COPD type J44.9 Active 18476688 ALLERGIES Substance Reaction Event Type Date Status Penicillins Unknown Non Drug Allergy Mar, Active Sulfa(sulfonamide Antibiotics) Unknown Non Drug Allergy Mar, Active SOCIAL HISTORY No smoking Hx information available PLAN OF CARE Activity Details Follow Up 2 Months Reason:[facility] VITAL SIGNS Height 57 in 2016-04-23 Weight 209.1 lbs 2016-04-23 Temperature 98.4 degrees Fahrenheit 2016-04-23 Heart Rate 88 bpm 2016-04-23 Respiratory Rate 20 2016-04-23 BMI 45.24 kg/m2 2016-04-23 Blood pressure systolic 132 mmHg 2016-04-23 Blood pressure diastolic 84 mmHg 2016-04-23 MEDICATIONS Medication Instructions Dosage Frequency Start Date End Date Duration Status Suvorexant 10 mg Orally Once a day 1 tablet at bedtime as needed 24h Mar Active Ventolin HFA 108 (90 Base) MCG/ACT Inhalation every 4 hrs 2 puffs as needed 4h Feb, 90 days Active Januvia 25 MG Orally Once a day 2 tablets 24h Mar, 90 days Active Claritin 10MG Orally Once a day 1 tablet 24h 90 days Active Ibuprofen 600 MG Orally Three times a day 1 tablet 8h Mar,Jun 90 days Active Nexium 40 mg Orally Once a day 1 capsule 24h 90 days Active Spironolactone 50 mg Orally Once a day 1 tablet 24h Active Gabapentin 600 MG Orally Three times a day 1 tablet 8h 90 days Active Myrbetriq 50 MG Orally Once a day 1 tablet 24h 90 days Active Ambien 5 mg Orally Once a day 1 tablet at bedtime 24h 30 days Active Levothyroxine Sodium 150 MCG Orally Once a day 1 tablet 24h 90 days Active Invega Sustenna 234 MG/1.5ML Intramuscular Once a month, on the 10th of every month 1.5 ml Mar, Active Metformin HCl 1000 MG Orally Twice a day 1 tablet with meals 12h Mar, 90 days Active Pravastatin Sodium 10 MG Orally Once a day 1 tablet 24h 30 Active Vistaril 25MG Orally every 8 hrs 1 capsule as needed 8h 30 Active metformin 1,000 mg orally 2 times a day 1 tablet 12h Jun, Active Sertraline HCl 100 MG Orally Once a day 1 tablet 24h Active Vistaril 25 MG Orally every 8 hrs 1 capsule as needed 8h Active Trazodone HCl 150 MG Orally Once a day 1 tablet at bedtime as needed 24h Active Spironolactone 50MG Orally Once a day 1 tablet 24h 90 days Active Claritin 10 mg Orally Once a day 1 tablet 24h Active Premarin 0.625 MG/GM insert 0.5 gram by vaginal route twice weekly Active Norvasc 10 mg Orally Once a day 1 tablet 24h 30 Active Tizanidine HCl 4 MG Orally 3 times a day 1 1/2 tablets 8h Active Breo Ellipta 100-25 mcg/dose Inhalation Once a day inhale 1 puff by inhalation route once daily at the same time each day 24h 12 Jun, 2014Mar 90 days Active Restasis 0.05 % instill 1 drop into affected eye(s) by ophthalmic route 2 times per day Oct, Active RESULTS No Results PROCEDURES Procedure Date Ordered Related Diagnosis Body Site [facility] VISIT ESTABLISHED PATIENT Apr 23, 2016 Office Visit, Est Pt., Level 4 Apr 23, 2016 IMMUNIZATIONS No Known Immunizations
--- OUTSIDE RECORDS SUMMARY | 2018-09-02 14:36 | XMS REPORT ---
Author Author EDWIN UMESH Organization [facility] Address [address] [place] [address] Care Team Providers Care Allied Health Teacher Name Role Phone UMESH PINEDA Unavailable PROBLEMS Type Condition ICD9-CM Code XRY12-QT Code Onset Dates Condition Status SNOMED Code Problem Other seasonal allergic rhinitis J30.2 Active 714354051 Problem Gastroesophageal reflux disease, esophagitis presence not specified K21.9 Active 809151875 Problem Tobacco abuse Z72.0 Active 073124379 Problem Seasonal allergic rhinitis due to pollen J30.1 Active 36455997 Problem History of lupus Z87.39 Active 674764724 Problem COPD exacerbation J44.1 Active 268687251 Problem OAB (overactive bladder) N32.81 Active 755916859 Problem Morbid obesity due to excess calories E66.01 Active 987620806 Problem Dyslipidemia E78.5 Active 559568223 Problem Migraine without aura and without status migrainosus, not intractable G43.009 Active 106067393 Problem Hypothyroidism (acquired) E03.9 Active 247290861 Problem Essential hypertension I10 Active 53046333 Problem Type 2 diabetes mellitus without complication, without long-term current use of insulin E11.9 Active 678494477 Problem Gastroesophageal reflux disease without esophagitis K21.9 Active 816090718 Problem Chronic pain syndrome G89.4 Active 462712399 Problem Paranoid schizophrenia F20.0 Active 80916671 Problem Primary insomnia F51.01 Active 3669436 Problem DM neuro manif type II E11.49 Active 38455463 Problem Depression with anxiety F41.8 Active 356332836 Problem Seasonal allergic rhinitis due to other allergic trigger J30.89 Active 929318792 Problem Menopausal syndrome (hot flashes) N95.1 Active 681936617 Problem Chronic obstructive pulmonary disease, unspecified COPD type J44.9 Active 09781821 Problem Schizoaffective disorder, depressive type F25.1 Active 94309730 Problem Other allergic rhinitis J30.89 Active 002039424 ALLERGIES No Information ENCOUNTERS Encounter Location Date Diagnosis [facility] [id number] [place] [address] 21631- 0824 Nov, [facility] [address] 37384- 4179 Sep, [facility] [address] 50834- 9870 Jul, Schizoaffective disorder, depressive type F25.1 [facility] [address] 51029- 3809 Jul, [place] [address] 05249- 4546 13 Jul, 2017 Hypothyroidism (acquired) E03.9 [place] [address] 69085- 7262 11 Jul, 2017 Chronic obstructive pulmonary disease, unspecified COPD type J44.9 and Type 2 diabetes mellitus without complication, without long-term current use of insulin E11.9 [place] [id number] [place] [address] 67546- 6517 Jul, Paranoid schizophrenia F20.0 [place] [id number] [place] [address] 56070- 0472 Jun, Hypothyroidism (acquired) E03.9 and Seasonal allergic rhinitis due to pollen J30.1 [facility] [id number] [place] [address] 58508 -9308 Jun, Shortness of breath at rest R06.02 ; COPD exacerbation J44.1 and BMI 45.0-49.9, adult Z68.42 [facility] [address] 27596- 7212 Jun, [facility] [address] 94705- 2876 Jun, Paranoid schizophrenia F20.0 ; Depression with anxiety F41.8 and BMI 45.0-49.9, adult Z68.42 [facility] [id number] [place] [address] 15595- 9417 Jun, Schizoaffective disorder, depressive type F25.1 [facility] [id number] [place] [address] [id number] Jun, Dental caries K02.9 [facility] [id number] [place] [address] 17651- 3817 Jun, Paranoid schizophrenia F20.0 [facility] [id number] [place] [address] 23749- 1328 May, Migraine without aura and without status migrainosus, not intractable G43.009 ; DM neuro manif type II E11.49 and Type 2 diabetes mellitus without complication, without long-term current use of insulin E11.9 [facility] [id number] [place] [address] 72199- 0372 May, Migraine without aura and without status migrainosus, not intractable G43.009 [facility] [id number] [place] [address] 26234- 8313 May, Depression with anxiety F41.8 [facility] [id number] [place] [address] [id number] May, [facility] [id number] [place] [address] 75491- 6380 May, [facility] [id number] [place] [address] 67629- 4349 May, [facility] [id number] [place] [address] 38301- 2948 May, Hypothyroidism (acquired) E03.9 [facility] [id number] [place] [address] 99104- 5937 May, Paranoid schizophrenia F20.0 [facility] [id number] [place] [address] 43059- 6529 08 Feb, 2018 Type 2 diabetes mellitus [...] N32.81 and Controlled substance agreement signed Z79.899 [place] [address] 32639- 2403 May, Controlled substance agreement signed Z79.899 [place] [address] 64521- 6774 Apr, [facility] [address] [id number] Apr, Dental examination Z01.20 [place] [address] 99965- 2798 Apr, Paranoid schizophrenia F20.0 [place] [address] 60708- 1534 Apr, Hypertension, unspecified type I10 [place] [address] 79557- 7682 Apr, Paranoid schizophrenia F20.0 [place] [address] 25568- 1960 Apr, [place] [address] 99046- 7183 Apr, Tobacco abuse Z72.0 [facility] [address] 52456- 7499 Apr, [place] [address] [place] [address]- 7508 Mar, [facility] [address] 87217- 8898 27 Mar, 2017 Paranoid schizophrenia F20.0 and BMI 45.0-49.9, adult Z68.42 [facility] [address] 36762- 6048 15 Mar, 2017 Schizoaffective disorder, depressive type F25.1 [place] [address] 96547- 8125 Mar, [place] [address] 48094- 9701 Mar, Hypothyroidism, unspecified type E03.9 [place] [address] 26136- 9039 12 Mar, 2017 Schizoaffective disorder, depressive type F25.1 [facility] [address] 32073 -8832 Feb, Gastroenteritis K52.9 and BMI 45.0-49.9, adult Z68.42 [place] [address] 36388- 7614 22 Feb, 2017 [place] [id number] [place] [address] 42989- 2104 Feb, [place] [id number] [place] [address] 55494- 8359 Feb, [place] [address] 40836- 2599 16 Feb, 2017 [facility] [address] 87642- 9406 10 Feb, 2017 Paranoid schizophrenia F20.0 [facility] [id number] [place] [address] 07291- 5957 06 Feb, 2017 Gastroesophageal reflux disease without esophagitis K21.9 ; Other seasonal allergic rhinitis J30.2 ; Other allergic rhinitis J30.89 ; Tobacco abuse Z72.0 and BMI 40.0-44.9, adult Z68.41 [place] [address] 33054- 2330 Feb, Onychomycosis B35.1 ; Callus of foot L84 and DM neuro manif type II E11.49 [place] [address] 81829- 2410 Jan, Chronic allergic rhinitis J30.9 [place] [address] 46766- 7917 Jan, [place] [address] 00077- 6294 Jan, Schizoaffective disorder, depressive type F25.1 [place] [address] 17794- 5938 Jan, [facility] [address] 48128 -6054 Jan, Sore throat J02.9 and Seasonal allergic rhinitis due to other allergic trigger J30.89 [place] [address] 06934- 9146 Jan, [facility] [address] 48496- 6685 Jan, [facility] [address] 05654 -4632 Jan, Chronic allergic rhinitis J30.9 [facility] [address] 98298- 3438 27 Dec, 2016 Paranoid schizophrenia F20.0 ; Primary insomnia F51.01 and Schizoaffective disorder, depressive type F25.1 [facility] [address] 86023- 0339 Dec, Chronic pain syndrome G89.4 ; Cervicalgia of occipito- atlanto-axial region M54.2 ; Menopausal syndrome (hot flashes) N95.1 and Encounter for immunization Z23 [place] [address] 19311- 4358 14 Dec, 2016 [facility] [address] 43545- 6949 13 Dec, 2016 [place] [address] 75638- 1414 08 Dec, 2016 Paranoid schizophrenia F20.0 [place] [address] 82189- 5636 Dec, Schizoaffective disorder, depressive type F25.1 [place] [address] 36908- 0077 Nov, Hypothyroidism, unspecified type E03.9 [facility] [address] 76486 -4472 Nov, Acute seasonal allergic rhinitis due to other allergen J30.89 [place] [id number] [place] [address] 19349- 2642 Nov, [place] [id number] [place] [address] 89657- 1560 Nov, Hypothyroidism, unspecified type E03.9 and Other elevated white blood cell (WBC) count D72.828 [place] [id number] [place] [address] 71810- 7526 Nov, Schizoaffective disorder, depressive type F25.1 [place] [id number] [place] [address] 03648- 9664 Nov, Paranoid schizophrenia F20.0 [place] [id number] [place] [address] 95012- 3578 Nov, Type 2 diabetes mellitus without complication, without long- term current use of insulin E11.9 ; Morbid obesity due to excess calories E66.01 and Chronic pain syndrome G89.4 [place] [address] [address]- 5950 Oct, Paranoid schizophrenia F20.0 [place] [id number] [place] [address] 23389- 4608 Oct, [place] [id number] [place] [address] 56945- 4397 Oct, Schizoaffective disorder, depressive type F25.1 [place] [id number] [place] [address] 05228- 0092 Oct, Hypothyroidism, unspecified type E03.9 and Other elevated white blood cell (WBC) count D72.828 [place] [id number] [place] [address] 09854- 3237 Oct, Morbid obesity due to excess calories E66.01 ; Chronic obstructive pulmonary disease, unspecified COPD type J44.9 ; History of lupus Z87.39 ; Hypothyroidism, unspecified type E03.9 ; Gastroesophageal reflux disease without esophagitis K21.9 ; Primary insomnia F51.01 and Chronic pain syndrome G89.4 [place] [address] [place] [address] 98823- 0181 Sep, [place] [id number] [place] [address] 10126- 1666 Sep, [place] [address] [address]- 5377 Sep, [place] [id number] [place] [address] 31650- 5231 Sep, Paranoid schizophrenia F20.0 [place] [address] [place] [address] 25581- 4398 Sep, [place] [id number] [place] [address] 14438- 8739 Sep, Paranoid schizophrenia F20.0 [place] [id number] [place] [address] 05249- 7675 Sep, [place] [address] [place] [address] 49402- 6053 August, Paranoid schizophrenia F20.0 [place] [id number] [place] [address] 25603- 8213 Jul, [place] [id number] [place] [address] 60727- 8648 Jul, Type 2 diabetes mellitus without complication, without long- term current use of insulin E11.9 ; Morbid obesity due to excess calories E66.01 ; Depression with anxiety F41.8 ; Hypothyroidism, unspecified type E03.9 ; Seasonal allergic rhinitis due to other allergic trigger J30.89 ; Pain, dental K08.89 and Gastroesophageal reflux disease without esophagitis K21.9 [facility] [id number] [place] [address] [id number] 12 Jul, 2016 Dental examination Z01.20 [place] [id number] [place] [address] 02446- 5279 07 Jul, 2016 Paranoid schizophrenia F20.0 [place] [id number] [place] [address] 24110- 9062 13 Jun, 2016 Paranoid schizophrenia F20.0 and Depression with anxiety F41.8 [place] [id number] [place] [address] 45938- 4750 Jun, Paranoid schizophrenia F20.0 and Depression with anxiety F41.8 [place] [id number] [place] [address] 20403- 5270 Jun, [place] [id number] [place] [address] 88915- 5709 Jun, [facility] [id number] [place] [address] 44308 -6564 Jun, Seasonal allergic rhinitis due to other allergic trigger J30.89 [facility] [id number] [place] [address] 14745 -3566 May, Sore throat J02.9 ; Other viral agents as the cause of diseases classified elsewhere B97.89 and Acute upper respiratory infection, unspecified J06.9 [place] [id number] [place] [address] 34759- 3864 May, Paranoid schizophrenia F20.0 and Depression with anxiety F41.[address] 09790- 1820 Apr, Other seasonal allergic rhinitis J30.2 [place] [address] 48777- 6986 Apr, Paranoid schizophrenia F20.0 and Depression with anxiety F41.8 [facility] [place] [id number] [place] [address] 90424 -1175 Apr, Bronchitis J40 and Sore throat J02.9 [place] [address] 39592- 6791 Apr, Type 2 diabetes mellitus without complication, without long- term current use of insulin E11.9 [facility] [place] [id number] [place] [address] 67579 -7399 Apr, Bronchitis J40 [place] [id number] [place] [address] 11153- 4932 Apr, [place] [id number] [place] [address] 45608- 1345 Apr, [place] [address] 65850- 0416 Mar, Type 2 diabetes mellitus without complication, [...] R60.9 and Other seasonal allergic rhinitis J30.2 [facility] [address] [address]- 6491 09 Mar, 2016 Paranoid schizophrenia F20.0 and Depression with anxiety F41.8 [facility] [id number] [address]- 7876 Feb, [facility] [id number] [place] [address] 81426- 1145 Feb, [facility] [id number] [place] [address] 61483- 6221 Feb, [facility] [id number] [place] [address] 33524- 6164 Feb, [facility] [id number] [place] [address] 98155- 1009 Feb, Type 2 diabetes mellitus without complication, without long- term current use of insulin E11.9 ; ARIAS on CPAP G47.33 and Preoperative evaluation to rule out surgical contraindication Z01.818 [facility] [address] [address]- 9393 Feb, Paranoid schizophrenia F20.0 and Depression with anxiety F41.8 [facility] [address] [address]- 9976 Jan, [facility] [address] [address]- 1134 Jan, Paranoid schizophrenia F20.0 and Depression with anxiety F41.8 [facility] [address] [address]- 5130 17 Jan, 2016 [facility] [id number] [place] [address] 21710- 1522 14 Jan, 2016 Muscle strain T14.8 [facility] [address] [address]- 2912 Jan, Paranoid schizophrenia F20.0 [facility] [id number] [address]- 4560 Jan, [facility] [address] [address]- 1902 Jan, Paranoid schizophrenia F20.0 and Depression with anxiety F41.8 [facility] [address] [address]- 0951 Jan, [facility] [id number] [place] [address] 37722- 6620 Jan, [facility] [address] [address]- 3529 Dec, [facility] [id number] [place] [address] 77889- 5450 Dec, Paranoid schizophrenia F20.0 [facility] [address] [address]- 6129 Dec, Paranoid schizophrenia F20.0 and Depression with anxiety F41.8 [facility] [address] [address]- 6264 Nov, [facility] [id number] [address]- 5522 Nov, Paranoid schizophrenia F20.0 [facility] [address] [address]- 5196 Nov, Paranoid schizophrenia F20.0 and Depression with anxiety F41.8 [facility] [address] [address]- 2159 Nov, Type 2 diabetes mellitus without complication, without long- term current use of insulin E11.9 ; Paranoid schizophrenia F20.0 ; Chronic obstructive pulmonary disease, unspecified COPD type J44.9 ; Morbid obesity due to excess calories E66.01 and Parkinsonian tremor G20 [facility] [address] [address]- 2104 Nov, [facility] [id number] [address]- 5564 Oct, Paranoid schizophrenia F20.0 [place] [id number] [place] [address] 98127- 3594 Oct, Paranoid schizophrenia F20.0 [place] [id number] [place] [address] 35303- 1103 Oct, Paranoid schizophrenia F20.0 and Depression with anxiety F41.8 [place] [id number] [place] [address] 22953- 4618 Oct, [place] [id number] [place] [address] 95866- 3671 Oct, Paranoid schizophrenia F20.0 and Depression with anxiety F41.8 [place] [id number] [place] [address] 69226- 4016 Oct, Nasal sore J34.89 [place] [id number] [place] [address] 49145- 0766 Oct, Type 2 diabetes mellitus without complication, without long- term current use of insulin E11.9 ; Depression with anxiety F41.8 ; Hypothyroidism, unspecified type E03.9 and History of lupus Z87.39 [place] [address] [place] [address] 25074- 5765 Oct, [place] [id number] [place] [address] 12341- 5396 Oct, Type 2 diabetes mellitus without complication, [...] edema R60.9 and History of lupus Z87.39 [facility] [address] [facility] [id number] [place] [address]- 3037 Feb, [facility] [address] [facility] [id number] [place] [address]- 6184 Jan, [facility] [address] [facility] [id number] [place] [address]- 7410 Jan, [facility] [address] [facility] [id number] [place] [address]- 8578 Jan, [facility] [address] [facility] [id number] [place] [address]- 8931 Dec, [facility] [id number] [address]- 8172 Nov, [facility] [address] [place] [address]- 4975 Nov, [facility] [address] [address]- 3230 Oct, [facility] [id number] [address]- 3497 Oct, [facility] [address] [address]- 0408 Oct, [facility] [address] [address]- 0043 Sep, Allergic rhinitis 477.9 [facility] [address] [address]- 1939 Sep, Rhinitis, allergic 477.9 [facility] [id number] [address]- 1424 Sep, Rhinitis, allergic 477.9 [facility] [id number] [address]- 1152 Sep, [facility] [address] [address]- 1579 August, [facility] [place] [facility] [address] [id number] [place] [address]- 0340 August, [facility] [place] [facility] [address] [id number] [place] [address]- 1944 August, [facility] [place] [facility] [address] [id number] [place] [address]- 9551 Jul, [facility] [place] [facility] [address] [id number] [place] [address]- 8160 Jul, [facility] [place] [facility] [address] [id number] [place] [address]- 9821 Jul, [facility] [place] [facility] [address] [id number] [place] [address]- 0840 Jun, [facility] [place] [facility] [address] [id number] [place] [address]- 1582 Jun, [facility] [place] [facility] [address] [id number] [place] [address] Jun, [facility] [place] [facility] [address] [id number] [place] [address] Jun, [facility] [place] [facility] [address] [id number] [place] [address] Jun, [facility] [place] [facility] [address] [id number] [place] [address] Jun, [facility] [place] [facility] [address] [id number] [place] [address] Jun, [facility] [place] [facility] [address] [id number] [place] [address] [address] Jun, [facility] [place] [facility] [address] [id number] [place] [address] May, [facility] [place] [facility] [address] [id number] [place] [address] May, [facility] [place] [facility] [address] [id number] [place] [address] 11 May, 2014 [facility] [place] [facility] [address] [id number] [place] [address] May, [facility] [place] [facility] [address] [id number] [place] [address] Apr, [facility] [place] [facility] [address] [id number] [place] [address] Mar, [facility] [place] [facility] [address] [id number] [place] [address] Mar, [facility] [place] [facility] [address] [id number] [place] [address] Mar, [facility] [place] [facility] [address] [id number] [place] [address] Mar, [facility] [place] [facility] [address] [id number] [place] [address] Mar, [facility] [place] [facility] [address] [id number] [place] [address] Mar, [facility] [place] [facility] [address] [id number] [place] [address] Mar, [facility] [place] [facility] [address] [facility] [id number] [place] [address] Mar, [facility] [place] [facility] [address] [id number] [place] [address] Mar, [facility] [place] [facility] [address] [id number] [place] [address] Feb, [facility] [place] [facility] [address] [id number] [place] [address] Feb, [facility] [place] [facility] [address] [id number] [place] [address] Feb, [facility] [place] [facility] [address] [id number] [place] [address] Feb, [facility] [place] [facility] [address] [id number] [place] [address] 14 Feb, 2014 [facility] [place] [facility] [address] [id number] [place] [address] 14 Feb, 2014 [facility] [place] [facility] [address] [id number] [place] [address] Feb, [facility] [place] [facility] [address] [id number] [place] [address] Feb, [facility] [place] [facility] [address] [id number] [place] [address] Jan, [facility] [place] [facility] [address] [id number] [place] [address] 23 Jan, 2014 [facility] [place] [facility] [address] [id number] [place] [address] 16 Jan, 2014 [facility] [place] [facility] [address] [id number] [place] [address] 16 Jan, 2014 [facility] [place] [facility] [address] [id number] [place] [address] 90[address] 15 Jan, 2014 [facility] [place] [facility] [address] [id number] [place] [address]227 15 Jan, 2014 [facility] [place] [facility] [address] [id number] [place] [address] 8681 14 Jan, 2014 [facility] [place] [facility] [address] [id number] [place] [address] 9331 14 Jan, 2014 [facility] [place] [facility] [address] [id number] [place] [address] 0093 14 Jan, 2014 [facility] [place] [facility] [address] [id number] [place] [address] 3833 14 Jan, 2014 [facility] [place] [facility] [address] [id number] [place] [address] 0969 18 Dec, 2013 [facility] [place] [facility] [address] [id number] [place] [address] 475[address] Dec, [facility] [place] [facility] [address] [id number] [place] [address] Dec, [facility] [place] [facility] [address] [id number] [place] [address] Dec, [facility] [place] [facility] [address] [id number] [place] [address] 42[address] Nov, [facility] [place] [facility] [address] [id number] [place] [address] Nov, [facility] [place] [facility] [address] [id number] [place] [address] 3963 Nov, [facility] [place] [facility] [address] [id number] [place] [address] 6[address] Nov, [facility] [place] [facility] [address] [id number] [place] [address] 69[address] Nov, [facility] [place] [facility] [address] [id number] [place] [address] 0710 Oct, [facility] [place] [facility] [address] [id number] [place] [address] 5191 Oct, [facility] [place] [facility] [address] [id number] [place] [address] 56[address] Oct, [facility] [place] [facility] [address] [id number] [place] [address] 4055 Oct, [facility] [place] [facility] [address] [id number] [place] [address] Sep, [facility] [place] [facility] [address] [id number] [place] [address] 480[address] Sep, [facility] [place] [facility] [address] [id number] [place] [address] 0690 Sep, [facility] [place] [facility] [address] [id number] [place] [address] 4974 Sep, [facility] [place] [facility] [address] [id number] [place] [address] 8399 Sep, [facility] [address] [id number] [place] [address] Sep, [facility] [place] [facility] [address] [id number] [place] [address] 28[address] Sep, [facility] [address] [id number] [place] [address] 95[address] Sep, [facility] [place] [facility] [address] [id number] [place] [address] August, [facility] [address] [id number] [place] [address] 9[address] August, [facility] [address] [id number] [place] [address] August, [facility] [address] [id number] [place] [address] 3924 August, [facility] [address] [id number] [place] [address] 9593 August, [facility] [place] [facility] [address] [id number] [place] [address] 96[address] August, [facility] [address] [id number] [place] [address] 8268 August, [facility] [place] [facility] [address] [id number] [place] [address] 9908 Jul, [facility] [place] [facility] [address] [id number] [place] [address] 5206 Jul, [facility] [place] [facility] [address] [id number] [place] [address]157 Jul, [facility] [place] [facility] [address] [id number] [place] [address] 79[address] Jul, [facility] [place] [facility] [address] [id number] [place] [address] 6234 Jul, [facility] [place] [facility] [address] [id number] [place] [address] 2712 Jul, [facility] [place] [facility] [address] [id number] [place] [address]- 0728 Jul, [facility] [place] [facility] [address] [id number] [place] [address]- 4555 Jul, [facility] [place] [facility] [address] [id number] [place] [address]- 4678 Jul, [facility] [place] [facility] [address] [id number] [place] [address] 8533 Jul, [facility] [place] [facility] [address] [id number] [place] [address]- 7548 Jul, [facility] [place] [facility] [address] [id number] [place] [address] 7759 Jul, [facility] [place] [facility] [address] [id number] [place] [address] 6579 Jun, [facility] [place] [facility] [address] [id number] [place] [address] 9748 Jun, [facility] [place] [facility] [address] [id number] [place] [address] 3382 Jun, [facility] [place] [facility] [address] [id number] [place] [address] 5028 Jun, [facility] [place] [facility] [address] [id number] [place] [address]- 9987 Jun, [facility] [place] [facility] [address] [id number] [place] [address] 6758 May, [facility] [place] [facility] [address] [id number] [place] [address]- 0251 May, [facility] [place] [facility] [address] [id number] [place] [address] 4401 May, [facility] [place] [facility] [address] [id number] [place] [address] 4783 May, 2013 [facility] [address] [id number] [place] [address]- 5246 May, 2013 [facility] [address] [id number] [place] [address] May, 2013 [facility] [address] [id number] [place] [address]- 9236 May, 2013 [facility] [address] [id number] [place] [address]- 3031 May, 2013 [facility] [address] [facility] [id number] [place] [address] Mar, [facility] [address] [facility] [id number] [place] [address] Mar, [facility] [address] [facility] [id number] [place] [address]- 5850 Mar, [facility] [address] [facility] [id number] [place] [address]- 6818 Mar, [facility] [address] [facility] [id number] [place] [address]- 4324 Mar, [facility] [address] [facility] [id number] [place] [address]- 2704 Mar, [facility] [place] [facility] [address] [facility] [id number] [place] [address]- 5054 Feb, [facility] [address] [id number] [place] [address]- 1229 Feb, [facility] [place] [facility] [address] [facility] [id number] [place] [address]- 6577 Jan, [facility] [place] [facility] [address] [facility] [id number] [place] [address]- 0934 Jan, [facility] [address] [facility] [id number] [place] [address]- 3577 Jan, [facility] [place] [facility] [address] [id number] [place] [address]- 2066 Jan, [facility] [place] [facility] [address] [id number] [place] [address]- 2471 Jan, [facility] [place] [facility] [address] [id number] [place] [address]- 4536 Jan, [facility] [place] [facility] [address] [id number] [place] [address]- 8838 Jan, [facility] [place] [facility] [address] [id number] [place] [address]- 2816 Jan, [facility] [place] [facility] [address] [id number] [place] [address]- 4930 Jan, [facility] [place] [facility] [address] [id number] [place] [address]- 6962 Jan, [facility] [place] [facility] [address] [id number] [place] [address]- 5280 Dec, [facility] [place] [facility] [address] [id number] [place] [address]- 9969 Nov, [facility] [place] [facility] [address] [id number] [address] Nov, [facility] [place] [facility] [address] [id number] [address]- 6[address] Nov, [facility] [place] [facility] [address] [id number] [address]- 0505 Oct, [facility] [place] [facility] [address] [id number] [place] [address]- 8722 Oct, [facility] [place] [facility] [address] [id number] [place] [address]- 6647 August, [facility] [place] [facility] [address] [id number] [place] [address]- 5951 Apr, [facility] [place] [facility] [address] [id number] [place] [address]- 9036 Apr, [facility] [address] [id number] [address] Feb, [facility] [address] [id number] [address] Feb, [facility] [address] [id number] [address]- [address]226 Dec, [facility] [id number] [address]- 7[address] Dec, [facility] [address] [id number] [address] 1208 Oct, [facility] [id number] [address]- 4911 Oct, [facility] [id number] [address]- 0882 Oct, [facility] [address] [id number] [address]- 8266 Jul, IMMUNIZATIONS Vaccine Route Administration Date Status INVEGA (PT'S OWN) IM Intramuscular Jan 01, 2017 Administered SOCIAL HISTORY Never Assessed REASON FOR VISIT Injection - DON Allen PLAN OF CARE VITAL SIGNS MEDICATIONS Unknown Medications RESULTS No Results PROCEDURES Procedure Date Ordered Result Body Site INVEGA (PT'S OWN) Jan 01, 2017 THER/PROPH/DIAG INJ, SC/IM Jan 01, 2017 INSTRUCTIONS MEDICATIONS ADMINISTERED No Known [...] , last one in [facility] 4 years ago
--- OUTSIDE RECORDS SUMMARY | 2018-09-02 14:37 | XMS REPORT ---
Author Author UMESH PINEDA [facility] eClinicalWorks Address Unknown Phone Unavailable Care Team Providers Care Vp [employer] Name Role Phone UMESH PINEDA CP Unavailable [...] Instructions Start Date End Date Status Dosage Loxapine Succinate [facility] [address]-89 25 MG Orally 4 times a day PRN 1 capsule Sertraline HCl [facility] [address]-32 100 MG Orally Once a day 1 tablet Ambien [facility] [address]-08 5 mg Orally Once a day Feb 11, 2016 1 tablet at bedtime Triamcinolone Acetonide [facility] 85854009479 0.5 % APPLY TOPICALLY TWICE DAILY Mupirocin [facility] [address]-65 2 % Externally Three times a day Apr 20, 2014 1 Application by Nasal route 2 times per day to each nare--disp 22 gram tube Gabapentin [facility] [address]-47 600 MG Orally Three times a day 1 tablet Nexium [facility] [address]-83 40 mg Orally Once a day 1 capsule Trazodone HCl [facility] [address]-11 150 MG Orally Once a day 1 tablet at bedtime as needed Myrbetriq [facility] [address]-96 50 MG Orally Once a day 1 tablet Tizanidine HCl [facility] [address]-51 4 MG Orally 3 times a day 1 1/2 tablets Restasis [facility] [address]-22 0.05 % November 15, 2012 instill 1 drop into affected eye(s) by ophthalmic route 2 times per day Breo Ellipta [facility] [address]-75 100-25 mcg/dose Inhalation Once a day July 05, 2014 inhale 1 puff by inhalation route once daily at the same time each day Pravastatin Sodium [facility] 43706939429 10 MG Orally Once a day 1 tablet Spironolactone [facility] [address]-61 50 mg Orally Once a day 1 tablet Vistaril [facility] [address]-43 25 MG Orally every 8 hrs 1 capsule as needed Claritin [facility] [address]-10 10 mg Orally Once a day 1 tablet Norvasc [facility] [address]-06 10 mg Orally Once a day 1 tablet Invega Sustenna [facility] [address]-84 234 MG/1.5ML Intramuscular Once q monthly on the of each month 1 drop metformin [facility] [address]-72 1,000 mg orally 2 times a day July 05, 2014 1 tablet Premarin [facility] 31226703365 0.625 MG/GM insert 0.5 gram by vaginal route twice weekly Levothyroxine Sodium [facility] 92144251071 150 MCG Orally Once a day 1 tablet Procedures Procedure Coding System Code Date Office Visit, Est Pt., Level 2 CPT-4 48629 Feb 11, 2016 [facility] VISIT ESTABLISHED PATIENT CPT-4 G0467 Feb 11, 2016 Vital Signs Date/Time: Feb 11, 2016 Cardiac Monitoring Heart Rate 100 bpm Weight 215.4 lbs Height 57 in BMI 46.61 Index Blood Pressure Diastolic 70 mmHg Blood Pressure Systolic 120 mmHg Results No Known Results Summary Purpose eClinicalWorks Submission
--- OUTSIDE RECORDS SUMMARY | 2018-09-02 14:37 | XMS REPORT ---
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 Name Role Phone STRICKLANDSOTO Carias Unavailable PROBLEMS Type Condition ICD9-CM Code BXY78-DM Code Onset Dates Condition Status SNOMED Code Problem Other seasonal allergic rhinitis J30.2 Active 213507053 Problem Gastroesophageal reflux disease, esophagitis presence not specified K21.9 Active 067705066 Problem Tobacco abuse Z72.0 Active 499483844 Problem Seasonal allergic rhinitis due to pollen J30.1 Active 29415495 Problem History of lupus Z87.39 Active 742371902 Problem COPD exacerbation J44.1 Active 696583543 Problem OAB (overactive bladder) N32.81 Active 428097296 Problem Morbid obesity due to excess calories E66.01 Active 835293129 Problem Dyslipidemia E78.5 Active 194966009 Problem Migraine without aura and without status migrainosus, not intractable G43.009 Active 734523331 Problem Hypothyroidism (acquired) E03.9 Active 396465190 Problem Essential hypertension I10 Active 41248591 Problem Type 2 diabetes mellitus without complication, without long-term current use of insulin E11.9 Active 809255686 Problem Gastroesophageal reflux disease without esophagitis K21.9 Active 074217989 Problem Chronic pain syndrome G89.4 Active 006424679 Problem Paranoid schizophrenia F20.0 Active 05061328 Problem Primary insomnia F51.01 Active 3668273 Problem DM neuro manif type II E11.49 Active 54380759 Problem Depression with anxiety F41.8 Active 059213419 Problem Seasonal allergic rhinitis due to other allergic trigger J30.89 Active 327061705 Problem Menopausal syndrome (hot flashes) N95.1 Active 258501435 Problem Chronic obstructive pulmonary disease, unspecified COPD type J44.9 Active 56697909 Problem Schizoaffective disorder, depressive type F25.1 Active 94787494 Problem Other allergic rhinitis J30.89 Active 356459925 ALLERGIES No Information ENCOUNTERS Encounter Location Date Diagnosis [facility] [id number] [place] [address] 60375- 2735 Nov, [facility] [address] 92695- 7854 Sep, [facility] [address] 24849- 9308 Jul, Schizoaffective disorder, depressive type F25.1 [facility] [address] 48794- 3256 Jul, [place] [address] 67826- 2855 13 Jul, 2017 Hypothyroidism (acquired) E03.9 [place] [address] 90312- 6781 11 Jul, 2017 Chronic obstructive pulmonary disease, unspecified COPD type J44.9 and Type 2 diabetes mellitus without complication, without long-term current use of insulin E11.9 [place] [id number] [place] [address] 77192- 7284 Jul, Paranoid schizophrenia F20.0 [place] [id number] [place] [address] 24264- 6726 Jun, Hypothyroidism (acquired) E03.9 and Seasonal allergic rhinitis due to pollen J30.1 [facility] [id number] [place] [address] 07298 -0510 Jun, Shortness of breath at rest R06.02 ; COPD exacerbation J44.1 and BMI 45.0-49.9, adult Z68.42 [facility] [address] 47045- 8688 Jun, [facility] [address] 51625- 2729 Jun, Paranoid schizophrenia F20.0 ; Depression with anxiety F41.8 and BMI 45.0-49.9, adult Z68.42 [facility] [id number] [place] [address] 77239- 0229 Jun, Schizoaffective disorder, depressive type F25.1 [facility] [id number] [place] [address] [id number] Jun, Dental caries K02.9 [facility] [id number] [place] [address] 81800- 3684 Jun, Paranoid schizophrenia F20.0 [facility] [id number] [place] [address] 25378- 7776 May, Migraine without aura and without status migrainosus, not intractable G43.009 ; DM neuro manif type II E11.49 and Type 2 diabetes mellitus without complication, without long-term current use of insulin E11.9 [facility] [id number] [place] [address] 87168- 1942 May, Migraine without aura and without status migrainosus, not intractable G43.009 [facility] [id number] [place] [address] 16188- 1946 May, Depression with anxiety F41.8 [facility] [id number] [place] [address] [id number] May, [facility] [id number] [place] [address] 62740- 9728 May, [facility] [id number] [place] [address] 58756- 4000 May, [facility] [id number] [place] [address] 76463- 4612 May, Hypothyroidism (acquired) E03.9 [facility] [id number] [place] [address] 74315- 0403 May, Paranoid schizophrenia F20.0 [facility] [id number] [place] [address] 39280- 6647 08 Feb, 2018 Type 2 diabetes mellitus [...] N32.81 and Controlled substance agreement signed Z79.899 [place] [address] 55892- 5513 May, Controlled substance agreement signed Z79.899 [place] [address] 87825- 7411 Apr, [facility] [address] [id number] Apr, Dental examination Z01.20 [place] [address] 24057- 1527 Apr, Paranoid schizophrenia F20.0 [place] [address] 59196- 3580 Apr, Hypertension, unspecified type I10 [place] [address] 50169- 2225 Apr, Paranoid schizophrenia F20.0 [place] [address] 20443- 3224 Apr, [place] [address] 42445- 5035 Apr, Tobacco abuse Z72.0 [facility] [address] 17494- 8925 Apr, [place] [address] [place] [address]- 1408 Mar, [facility] [address] 86153- 6632 27 Mar, 2017 Paranoid schizophrenia F20.0 and BMI 45.0-49.9, adult Z68.42 [facility] [address] 53605- 2137 15 Mar, 2017 Schizoaffective disorder, depressive type F25.1 [place] [address] 67637- 6576 Mar, [place] [address] 03526- 7323 Mar, Hypothyroidism, unspecified type E03.9 [place] [address] 96354- 1031 12 Mar, 2017 Schizoaffective disorder, depressive type F25.1 [facility] [address] 90347 -6076 Feb, Gastroenteritis K52.9 and BMI 45.0-49.9, adult Z68.42 [place] [address] 86304- 6126 22 Feb, 2017 [place] [id number] [place] [address] 88447- 6265 Feb, [place] [id number] [place] [address] 22469- 4475 Feb, [place] [address] 18217- 5260 16 Feb, 2017 [facility] [address] 03737- 4110 10 Feb, 2017 Paranoid schizophrenia F20.0 [facility] [id number] [place] [address] 20359- 6966 06 Feb, 2017 Gastroesophageal reflux disease without esophagitis K21.9 ; Other seasonal allergic rhinitis J30.2 ; Other allergic rhinitis J30.89 ; Tobacco abuse Z72.0 and BMI 40.0-44.9, adult Z68.41 [place] [address] 49154- 8580 Feb, Onychomycosis B35.1 ; Callus of foot L84 and DM neuro manif type II E11.49 [place] [address] 19371- 7501 Jan, Chronic allergic rhinitis J30.9 [place] [address] 13564- 8813 Jan, [place] [address] 33673- 4373 Jan, Schizoaffective disorder, depressive type F25.1 [place] [address] 87632- 3299 Jan, [facility] [address] 33218 -8141 Jan, Sore throat J02.9 and Seasonal allergic rhinitis due to other allergic trigger J30.89 [place] [address] 95782- 4179 Jan, [facility] [address] 45890- 6588 Jan, [facility] [address] 10632 -5825 Jan, Chronic allergic rhinitis J30.9 [facility] [address] 63338- 2192 27 Dec, 2016 Paranoid schizophrenia F20.0 ; Primary insomnia F51.01 and Schizoaffective disorder, depressive type F25.1 [facility] [address] 78757- 7443 Dec, Chronic pain syndrome G89.4 ; Cervicalgia of occipito- atlanto-axial region M54.2 ; Menopausal syndrome (hot flashes) N95.1 and Encounter for immunization Z23 [place] [address] 14926- 2285 14 Dec, 2016 [facility] [address] 98132- 8982 13 Dec, 2016 [place] [address] 09015- 8912 08 Dec, 2016 Paranoid schizophrenia F20.0 [place] [address] 72440- 0628 Dec, Schizoaffective disorder, depressive type F25.1 [place] [address] 53605- 8544 Nov, Hypothyroidism, unspecified type E03.9 [facility] [address] 42319 -3207 Nov, Acute seasonal allergic rhinitis due to other allergen J30.89 [place] [id number] [place] [address] 95069- 8893 Nov, [place] [id number] [place] [address] 20555- 6270 Nov, Hypothyroidism, unspecified type E03.9 and Other elevated white blood cell (WBC) count D72.828 [place] [id number] [place] [address] 26244- 9049 Nov, Schizoaffective disorder, depressive type F25.1 [place] [id number] [place] [address] 42482- 2754 Nov, Paranoid schizophrenia F20.0 [place] [id number] [place] [address] 99424- 7172 Nov, Type 2 diabetes mellitus without complication, without long- term current use of insulin E11.9 ; Morbid obesity due to excess calories E66.01 and Chronic pain syndrome G89.4 [place] [address] [address]- 2427 Oct, Paranoid schizophrenia F20.0 [place] [id number] [place] [address] 31214- 0472 Oct, [place] [id number] [place] [address] 88791- 4735 Oct, Schizoaffective disorder, depressive type F25.1 [place] [id number] [place] [address] 98274- 5299 Oct, Hypothyroidism, unspecified type E03.9 and Other elevated white blood cell (WBC) count D72.828 [place] [id number] [place] [address] 96552- 6963 Oct, Morbid obesity due to excess calories E66.01 ; Chronic obstructive pulmonary disease, unspecified COPD type J44.9 ; History of lupus Z87.39 ; Hypothyroidism, unspecified type E03.9 ; Gastroesophageal reflux disease without esophagitis K21.9 ; Primary insomnia F51.01 and Chronic pain syndrome G89.4 [place] [address] [place] [address] 33094- 3830 Sep, [place] [id number] [place] [address] 37464- 0475 Sep, [place] [address], [place] [address]- 2519 Sep, [place] [id number] [place] [address] 62203- 8893 Sep, Paranoid schizophrenia F20.0 [place] [address] [place] [address] 81082- 0481 Sep, [place] [id number] [place] [address] 83422- 3165 Sep, Paranoid schizophrenia F20.0 [place] [address] [place] [address] 15164- 7075 Sep, [place] [address] [place] [address] 12625- 8923 August, Paranoid schizophrenia F20.0 [place] [id number] [place] [address] 33443- 8563 Jul, [place] [id number] [place] [address] 42445- 8176 Jul, Type 2 diabetes mellitus without complication, without long- term current use of insulin E11.9 ; Morbid obesity due to excess calories E66.01 ; Depression with anxiety F41.8 ; Hypothyroidism, unspecified type E03.9 ; Seasonal allergic rhinitis due to other allergic trigger J30.89 ; Pain, dental K08.89 and Gastroesophageal reflux disease without esophagitis K21.9 [facility] [id number] [place] [address] [id number] 12 Jul, 2016 Dental examination Z01.20 [place] [id number] [place] [address] 68598- 0934 07 Jul, 2016 Paranoid schizophrenia F20.0 [place] [id number] [place] [address] 57601- 9173 13 Jun, 2016 Paranoid schizophrenia F20.0 and Depression with anxiety F41.8 [place] [id number] [place] [address] 71884- 7903 Jun, Paranoid schizophrenia F20.0 and Depression with anxiety F41.8 [place] [id number] [place] [address] 33056- 3081 Jun, [place] [id number] [place] [address] 06202- 3179 Jun, [facility] [id number] [place] [address] 95267 -8589 Jun, Seasonal allergic rhinitis due to other allergic trigger J30.89 [facility] [id number] [place] [address] 39180 -8998 May, Sore throat J02.9 ; Other viral agents as the cause of diseases classified elsewhere B97.89 and Acute upper respiratory infection, unspecified J06.9 [place] [id number] [place] [address] 81738- 2207 May, Paranoid schizophrenia F20.0 and Depression with anxiety F41.[address] 56564- 7296 Apr, Other seasonal allergic rhinitis J30.2 [place] [address] 76521- 6366 Apr, Paranoid schizophrenia F20.0 and Depression with anxiety F41.8 [facility] [place] [id number] [place] [address] 96238 -2781 Apr, Bronchitis J40 and Sore throat J02.9 [place] [address] 04018- 6443 Apr, Type 2 diabetes mellitus without complication, without long- term current use of insulin E11.9 [facility] [place] [id number] [place] [address] 70415 -1218 Apr, Bronchitis J40 [place] [id number] [place] [address] 67398- 6122 Apr, [place] [id number] [place] [address] 69546- 9743 Apr, [place] [address] 25025- 9349 Mar, Type 2 diabetes mellitus without complication, [...] R60.9 and Other seasonal allergic rhinitis J30.2 [facility] [address], [place] [address]- 4662 09 Mar, 2016 Paranoid schizophrenia F20.0 and Depression with anxiety F41.8 [facility] [id number] [address]- 6612 Feb, [facility] [id number] [place] [address] 82201- 2062 Feb, [facility] [id number] [place] [address] 75120- 0137 Feb, [facility] [id number] [place] [address] 15168- 6081 Feb, [facility] [id number] [place] [address] 76300- 1634 Feb, Type 2 diabetes mellitus without complication, without long- term current use of insulin E11.9 ; ARIAS on CPAP G47.33 and Preoperative evaluation to rule out surgical contraindication Z01.818 [facility] [address], [place] [address]- 5642 Feb, Paranoid schizophrenia F20.0 and Depression with anxiety F41.8 [facility] [address], [place] [address]- 2331 Jan, [facility] [address], [place] [address]- 0791 Jan, Paranoid schizophrenia F20.0 and Depression with anxiety F41.8 [facility] [address], [place] [address]- 1374 17 Jan, 2016 [facility] [id number] [place] [address] 45412- 8284 14 Jan, 2016 Muscle strain T14.8 [facility] [address], [place] [address]- 1846 Jan, Paranoid schizophrenia F20.0 [facility] [id number] [address]- 6535 Jan, [facility] [address], [place] [address]- 0838 Jan, Paranoid schizophrenia F20.0 and Depression with anxiety F41.8 [facility] [address], [place] [address]- 6297 Jan, [facility] [id number] [place] [address] 66747- 6112 Jan, [facility] [address], [place] [address]- 9077 Dec, [facility] [id number] [place] [address] 16196- 3456 Dec, Paranoid schizophrenia F20.0 [facility] [address], [place] [address]- 5385 Dec, Paranoid schizophrenia F20.0 and Depression with anxiety F41.8 [facility] [address], [place] [address]- 6018 Nov, [facility] [id number] [address]- 0589 Nov, Paranoid schizophrenia F20.0 [facility] [address], [place] [address]- 3304 Nov, Paranoid schizophrenia F20.0 and Depression with anxiety F41.8 [facility] [address], [place] [address]- 4828 Nov, Type 2 diabetes mellitus without complication, without long- term current use of insulin E11.9 ; Paranoid schizophrenia F20.0 ; Chronic obstructive pulmonary disease, unspecified COPD type J44.9 ; Morbid obesity due to excess calories E66.01 and Parkinsonian tremor G20 [facility] [address], [place] [address]- 0270 Nov, [facility] [id number] [address]- 4088 Oct, Paranoid schizophrenia F20.0 [place] [id number] [place] [address] 56274- 9063 Oct, Paranoid schizophrenia F20.0 [place] [id number] [place] [address] 68181- 4077 Oct, Paranoid schizophrenia F20.0 and Depression with anxiety F41.8 [place] [id number] [place] [address] 35823- 4023 Oct, [place] [id number] [place] [address] 19531- 5549 Oct, Paranoid schizophrenia F20.0 and Depression with anxiety F41.8 [place] [id number] [place] [address] 75605- 2024 Oct, Nasal sore J34.89 [place] [id number] [place] [address] 97138- 9516 Oct, Type 2 diabetes mellitus without complication, without long- term current use of insulin E11.9 ; Depression with anxiety F41.8 ; Hypothyroidism, unspecified type E03.9 and History of lupus Z87.39 [place] [address] [place] [address] 37758- 8465 Oct, [place] [id number] [place] [address] 40608- 9854 Oct, Type 2 diabetes mellitus without complication, [...] edema R60.9 and History of lupus Z87.39 [facility] [address] [facility] [id number] [place] [address]- 7396 Feb, [facility] [address] [facility] [id number] [place] [address]- 4084 Jan, [facility] [address] [facility] [id number] [place] [address]- 3037 Jan, [facility] [address] [facility] [id number] [place] [address]- 5021 Jan, [facility] [address] [facility] [id number] [place] [address]- 1658 Dec, [facility] [id number], [place] [address]- 3741 Nov, [facility] [address] [place] [address]- 6358 Nov, [facility] [address], [place] [address]- 7814 Oct, [facility] [id number] [place] [address]- 0201 Oct, [facility] [address], [place] [address]- 2697 Oct, [facility] [address], [place] [address]- 8963 Sep, Allergic rhinitis 477.9 [facility] [address], [place] [address]- 2441 Sep, Rhinitis, allergic 477.9 [facility] [id number], [place] [address]- 3137 Sep, Rhinitis, allergic 477.9 [facility] [id number], [place] [address]- 3757 Sep, [facility] [address], [place] [address]- 0434 August, [facility] [place] [facility] [address] [id number] [place] [address]- 0209 August, [facility] [place] [facility] [address] [id number] [place] [address]- 7549 August, [facility] [place] [facility] [address] [id number] [place] [address]- 5119 Jul, [facility] [place] [facility] [address] [id number] [place] [address]- 5544 Jul, [facility] [place] [facility] [address] [id number] [place] [address] Jul, [facility] [place] [facility] [address] [id number] [place] [id number] Jun, [facility] [place] [facility] [address] [id number] [place] [address] Jun, [facility] [place] [facility] [address] [id number] [place] [address] Jun, [facility] [place] [facility] [address] [id number] [place] [address] Jun, [facility] [place] [facility] [address] [id number] [place] [address] Jun, [facility] [place] [facility] [address] [id number] [place] [address] Jun, [facility] [place] [facility] [address] [id number] [place] [address] Jun, [facility] [place] [facility] [address] [id number] [place] [id number] [address] Jun, [facility] [place] [facility] [address] [id number] [place] [address] May, [facility] [place] [facility] [address] [id number] [place] [address] May, [facility] [place] [facility] [address] [id number] [place] [address] 11 May, 2014 [facility] [place] [facility] [address] [id number] [place] [address] May, [facility] [place] [facility] [address] [id number] [place] [address] Apr, [facility] [place] [facility] [address] [id number] [place] [id number] Mar, [facility] [place] [facility] [address] [id number] [place] [address] Mar, [facility] [place] [facility] [address] [id number] [place] [id number] Mar, [facility] [place] [facility] [address] [id number] [place] [address] Mar, [facility] [place] [facility] [address] [id number] [place] [address] Mar, [facility] [place] [facility] [address] [id number] [place] [address] Mar, [facility] [place] [facility] [address] [id number] [place] [address] Mar, [facility] [place] [facility] [address] [facility] [id number] [place] [address] Mar, [facility] [place] [facility] [address] [id number] [place] [address] Mar, [facility] [place] [facility] [address] [id number] [place] [address] Feb, [facility] [place] [facility] [address] [id number] [place] [address] 14[address] Feb, [facility] [place] [facility] [address] [id number] [place] [address] 95[address] Feb, [facility] [place] [facility] [address] [id number] [place] [address] 67[address] Feb, [facility] [place] [facility] [address] [id number] [place] [address] 14 Feb, 2014 [facility] [place] [facility] [address] [id number] [place] [address] 14 Feb, 2014 [facility] [place] [facility] [address] [id number] [place] [address] 9539 Feb, [facility] [place] [facility] [address] [id number] [place] [address]- 16[address] Feb, [facility] [place] [facility] [address] [id number] [place] [address] Jan, [facility] [place] [facility] [address] [id number] [place] [address]- 89[address] 23 Jan, 2014 [facility] [place] [facility] [address] [id number] [place] [address]- 6539 16 Jan, 2014 [facility] [place] [facility] [address] [id number] [place] [address] 3478 16 Jan, 2014 [facility] [place] [facility] [address] [id number] [place] [address]- 8180 15 Jan, 2014 [facility] [place] [facility] [address] [id number] [place] [address]- [address] 15 Jan, 2014 [facility] [place] [facility] [address] [id number] [place] [address]- 5176 14 Jan, 2014 [facility] [place] [facility] [address] [id number] [place] [address]- 4231 14 Jan, 2014 [facility] [place] [facility] [address] [id number] [place] [address]- 7286 14 Jan, 2014 [facility] [place] [facility] [address] [id number] [place] [address]- 3669 14 Jan, 2014 [facility] [place] [facility] [address] [id number] [place] [address]- 9073 18 Dec, 2013 [facility] [place] [facility] [address] [id number] [place] [address] 8943 Dec, [facility] [place] [facility] [address] [id number] [place] [address]- [address] Dec, [facility] [place] [facility] [address] [id number] [place] [address]- 5265 Dec, [facility] [place] [facility] [address] [id number] [place] [address]- 1572 Nov, [facility] [place] [facility] [address] [id number] [place] [address]- 9636 Nov, [facility] [place] [facility] [address] [id number] [place] [address] 48[address] Nov, [facility] [place] [facility] [address] [id number] [place] [address]- 6466 Nov, [facility] [place] [facility] [address] [id number] [place] [address] 2379 Nov, [facility] [place] [facility] [address] [id number] [place] [address] 6643 Oct, [facility] [place] [facility] [address] [id number] [place] [address] 7064 Oct, [facility] [place] [facility] [address] [id number] [place] [address] 5493 Oct, [facility] [place] [facility] [address] [id number] [place] [address] 7934 Oct, [facility] [place] [facility] [address] [id number] [place] [address]- 9962 Sep, [facility] [place] [facility] [address] [id number] [place] [address]- 4958 Sep, [facility] [place] [facility] [address] [id number] [place] [address] 5245 Sep, [facility] [place] [facility] [address] [id number] [place] [address]- 3834 Sep, [facility] [place] [facility] [address] [id number] [place] [address]- 5082 Sep, [facility] [address] [id number] [place] [address] 1004 Sep, [facility] [place] [facility] [address] [id number] [place] [address] 80[address] Sep, [facility] [address] [id number] [place] [address] 9[address] Sep, [facility] [place] [facility] [address] [id number] [place] [address] August, [facility] [address] [id number] [place] [address]- 9392 August, [facility] [address] [id number] [place] [address]- 4086 August, [facility] [address] [id number] [place] [address] 69[address] August, [facility] [address] [id number] [place] [address] 4824 August, [facility] [place] [facility] [address] [id number] [place] [address] August, [facility] [address] [id number] [place] [address]- 1486 August, [facility] [place] [facility] [address] [id number] [place] [address]- 1559 Jul, [facility] [place] [facility] [address] [id number] [place] [address]- 1591 Jul, [facility] [place] [facility] [address] [id number] [place] [address]- 0765 Jul, [facility] [place] [facility] [address] [id number] [place] [address]- 3564 Jul, [facility] [place] [facility] [address] [id number] [place] [address]- 0056 Jul, [facility] [place] [facility] [address] [id number] [place] [address]- 8368 Jul, [facility] [place] [facility] [address] [id number] [place] [address]- 8384 Jul, [facility] [place] [facility] [address] [id number] [place] [address]- 6862 Jul, [facility] [place] [facility] [address] [id number] [place] [address]- 9539 Jul, [facility] [place] [facility] [address] [id number] [place] [address]- 5107 Jul, [facility] [place] [facility] [address] [id number] [place] [address]- 3449 Jul, [facility] [place] [facility] [address] [id number] [place] [address]- 4176 Jul, [facility] [place] [facility] [address] [id number] [place] [address]- 5477 Jun, [facility] [place] [facility] [address] [id number] [place] [address]- 6053 Jun, [facility] [place] [facility] [address] [id number] [place] [address]- 5002 Jun, [facility] [place] [facility] [address] [id number] [place] [address]- 9483 Jun, [facility] [place] [facility] [address] [id number] [place] [address]- 3491 Jun, [facility] [place] [facility] [address] [id number] [place] [address]- 7217 May, [facility] [place] [facility] [address] [id number] [place] [address]- 4066 May, [facility] [place] [facility] [address] [id number] [place] [address]- 4631 May, [facility] [place] [facility] [address] [id number] [place] [address]- 5421 May, 2013 [facility] [address] [id number] [place] [address]- 0246 May, 2013 [facility] [address] [id number] [place] [address] May, 2013 [facility] [address] [id number] [place] [address]- 4678 May, 2013 [facility] [address] [id number] [place] [address]- 7096 May, 2013 [facility] [address] [facility] [id number] [place] [address] Mar, [facility] [address] [facility] [id number] [place] [address] Mar, [facility] [address] [facility] [id number] [place] [address]- 0797 Mar, [facility] [address] [facility] [id number] [place] [address]- 7414 Mar, [facility] [address] [facility] [id number] [place] [address]- 9359 Mar, [facility] [address] [facility] [id number] [place] [address]- 8989 Mar, [facility] [place] [facility] [address] [facility] [id number] [place] [address]- 0085 Feb, [facility] [address] [id number] [place] [address]- 1455 Feb, [facility] [place] [facility] [address] [facility] [id number] [place] [address]- 9125 Jan, [facility] [place] [facility] [address] [facility] [id number] [place] [address]- 4862 Jan, [facility] [address] [facility] [id number] [place] [address]- 5925 Jan, [facility] [place] [facility] [address] [id number] [place] [address]- 0974 Jan, [facility] [place] [facility] [address] [id number] [place] [address]- 8929 Jan, [facility] [place] [facility] [address] [id number] [place] [address]- 8102 Jan, [facility] [place] [facility] [address] [id number] [place] [address]- 8228 Jan, [facility] [place] [facility] [address] [id number] [place] [address]- 6018 Jan, [facility] [place] [facility] [address] [id number] [place] [address]- 4256 Jan, [facility] [place] [facility] [address] [id number] [place] [address]- 0882 Jan, [facility] [place] [facility] [address] [id number] [place] [address]- 2786 Dec, [facility] [place] [facility] [address] [id number] [place] [address]- 4355 Nov, [facility] [place] [facility] [address] [id number], [place] [address]- 3204 Nov, [facility] [place] [facility] [address] [id number], [place] [address]- 4481 Nov, [facility] [place] [facility] [address] [id number], [place] [address]- 0116 Oct, [facility] [place] [facility] [address] [id number] [place] [address]- 2886 Oct, [facility] [place] [facility] [address] [id number] [place] [address]- 4238 August, [facility] [place] [facility] [address] [id number], [place] [address]- 4532 Apr, [facility] [place] [facility] [address] [id number], [place] [address]- 2052 Apr, [facility] [address] [id number], [place] [address] Feb, [facility] [address] [id number], [place] [address] 6687 Feb, [facility] [id number], [place] [address]- 6951 Dec, [facility] [id number] [place] [address] 8530 Dec, [facility] [id number] [place] [address]- 5041 Oct, [facility] [id number], [place] [address]- 1827 Oct, [facility] [id number], [place] [address]- 7992 Oct, [facility] [address] [id number], [place] [address] 6086 Jul, IMMUNIZATIONS No Known Immunizations SOCIAL HISTORY [...] for psychosis/mental illness , last one in [place] at [facility] 4 years ago
--- OUTSIDE RECORDS SUMMARY | 2018-09-02 14:37 | XMS REPORT ---
Author Author SOTO STRICKLAND Organization [facility] Address [address] [place] [address] Care Team Providers Care Wolf Hunter Name Role Phone SOTO STRICKLAND Unavailable PROBLEMS Type Condition ICD9-CM Code DLN41-VG Code Onset Dates Condition Status SNOMED Code Problem Other allergic rhinitis J30.89 Active 353732501 Problem Tobacco abuse Z72.0 Active 841663383 Problem Other seasonal allergic rhinitis J30.2 Active 264131227 Problem COPD exacerbation J44.1 Active 073611560 Problem OAB (overactive bladder) N32.81 Active 583461584 Problem Hypothyroidism (acquired) E03.9 Active 572482140 Problem Morbid obesity due to excess calories E66.01 Active 447773594 Problem Chronic obstructive pulmonary disease, unspecified COPD type J44.9 Active 97504219 Problem Migraine without aura and without status migrainosus, not intractable G43.009 Active 723487574 Problem Gastroesophageal reflux disease, esophagitis presence not specified K21.9 Active 899374762 Problem Essential hypertension I10 Active 26202507 Problem Dyslipidemia E78.5 Active 644300152 Problem Chronic pain syndrome G89.4 Active 182665058 Problem Paranoid schizophrenia F20.0 Active 83632714 Problem Type 2 diabetes mellitus without complication, without long-term current use of insulin E11.9 Active 928717612 Problem History of lupus Z87.39 Active 026934358 Problem Schizoaffective disorder, depressive type F25.1 Active 59472593 Problem Primary insomnia F51.01 Active 2207996 Problem Gastroesophageal reflux disease without esophagitis K21.9 Active 868327072 Problem DM neuro manif type II E11.49 Active 47491230 Problem Depression with anxiety F41.8 Active 492962152 Problem Seasonal allergic rhinitis due to other allergic trigger J30.89 Active 664470918 Problem Menopausal syndrome (hot flashes) N95.1 Active 434588908 ALLERGIES No Information ENCOUNTERS Encounter Location Date Diagnosis [facility] [id number] [place] [address] 56238- 6657 Nov, [facility] [address] 05371- 5439 Jun, [facility] [id number] [place] [address] 77824 -4515 Jun, Shortness of breath at rest R06.02 ; COPD exacerbation J44.1 and BMI 45.0-49.9, adult Z68.42 [facility] [id number] [place] [address] 26406- 5962 Jun, [facility] [address] 00876- 0541 Jun, Paranoid schizophrenia F20.0 ; Depression with anxiety F41.8 and BMI 45.0-49.9, adult Z68.42 [facility] [id number] [place] [address] 37916- 1840 Jun, Schizoaffective disorder, depressive type F25.1 [facility] [address] [id number] Jun, Dental caries K02.9 [facility] [id number] [place] [address] 57783- 8281 Jun, Paranoid schizophrenia F20.0 [facility] [id number] [place] [address] 94808- 8694 May, Migraine without aura and without status migrainosus, not intractable G43.009 ; DM neuro manif type II E11.49 and Type 2 diabetes mellitus without complication, without long-term current use of insulin E11.9 [facility] [id number] [place] [address] 88321- 6446 May, Migraine without aura and without status migrainosus, not intractable G43.009 [facility] [id number] [place] [address] 88222- 0118 May, Depression with anxiety F41.8 [facility] [address] [id number] May, [facility] [id number] [place] [address] 02852- 9447 May, [facility] [id number] [place] [address] 36450- 2131 May, [place] [id number] [place] [address] 46041- 6930 May, Hypothyroidism (acquired) E03.9 [place] [id number] [place] [address] 05181- 8912 May, Paranoid schizophrenia F20.0 [facility] [id number] [place] [address] 84332- 8487 May, Type 2 diabetes mellitus without complication, [...] N32.81 and Controlled substance agreement signed Z79.899 [place] [address] [place] [address] 46338- 3888 May, Controlled substance agreement signed Z79.899 [place] [id number] [place] [address] 51981- 3025 Apr, [facility] [address] [place] [address] [id number] Apr, Dental examination Z01.20 [place] [id number] [place] [address] 52837- 9000 Apr, Paranoid schizophrenia F20.0 [facility] [id number] [place] [address] 33886- 2811 Apr, Hypertension, unspecified type I10 [facility] [id number] [place] [address] 54999- 1566 Apr, Paranoid schizophrenia F20.0 [facility] [id number] [place] [address] 91778- 3231 Apr, [facility] [id number] [place] [address] 08240- 7296 Apr, Tobacco abuse Z72.0 [facility] [id number] [place] [address] 52221- 3610 Apr, [facility] [id number] [place] [address] 44831- 5578 Mar, [facility] [id number] [place] [address] 38860- 2575 Mar, Paranoid schizophrenia F20.0 and BMI 45.0-49.9, adult Z68.42 [facility] [id number] [place] [address] 49387- 6521 Mar, Schizoaffective disorder, depressive type F25.1 [facility] [id number] [place] [address] 90969- 2738 Mar, [facility] [id number] [place] [address] 53768- 1821 Mar, Hypothyroidism, unspecified type E03.9 [facility] [id number] [place] [address] 78827- 4337 Mar, Schizoaffective disorder, depressive type F25.1 [facility] [address] [place] [address] 73198 -0662 Feb, Gastroenteritis K52.9 and BMI 45.0-49.9, adult Z68.42 [place] [id number] [place] [address] 87356- 6136 Feb, [place] [address] 78543- 8131 Feb, [place] [id number] [place] [address] 65067- 1633 Feb, [address] 30483- 8903 Feb, [address] 35416- 1366 Feb, Paranoid schizophrenia F20.[address] 84838- 5412 Feb, Gastroesophageal reflux disease without esophagitis K21.9 ; Other seasonal allergic rhinitis J30.2 ; Other allergic rhinitis J30.89 ; Tobacco abuse Z72.0 and BMI 40.0-44.9, adult Z68.41 [place] [id number] [place] [address] 10021- 8703 Feb, Onychomycosis B35.1 ; Callus of foot L84 and DM neuro manif type II E11.49 [place] [id number] [place] [address] 45368- 3478 Jan, Chronic allergic rhinitis J30.9 [place] [id number] [place] [address] 10875- 0778 Jan, [address] 50215- 7581 Jan, Schizoaffective disorder, depressive type F25.[address] 39934- 3098 Jan, [facility] [address] [place] [id number] [place] [address] 01308 -0071 07 Jan, 2017 Sore throat J02.9 and Seasonal allergic rhinitis due to other allergic trigger J30.89 [facility] [address] [place] [address] 63634- 0028 04 Jan, 2017 [facility] [id number] [place] [address] 65712- 7774 Jan, [facility] [id number] [place] [address] 61935 -9648 Jan, Chronic allergic rhinitis J30.9 [facility] [id number] [place] [address] 62469- 2187 Dec, Paranoid schizophrenia F20.0 ; Primary insomnia F51.01 and Schizoaffective disorder, depressive type F25.1 [place] [id number] [place] [address] 87632- 7547 21 Dec, 2016 Chronic pain syndrome G89.4 ; Cervicalgia of occipito- atlanto-axial region M54.2 ; Menopausal syndrome (hot flashes) N95.1 and Encounter for immunization Z23 [facility] [id number] [place] [address] 31795- 4975 14 Dec, 2016 [place] [id number] [place] [address] 90924- 4243 13 Dec, 2016 [place] [id number] [place] [address] 85923- 6334 08 Dec, 2016 Paranoid schizophrenia F20.0 [facility] [id number] [place] [address] 56895- 3215 Dec, Schizoaffective disorder, depressive type F25.1 [facility] [id number] [place] [address] 52287- 6934 Nov, Hypothyroidism, unspecified type E03.9 [facility] [id number] [place] [address] 94467 -0813 Nov, Acute seasonal allergic rhinitis due to other allergen J30.89 [facility] [id number] [place] [address] 47946- 8071 Nov, [place] [address] [place] [address] 56534- 1094 Nov, Hypothyroidism, unspecified type E03.9 and Other elevated white blood cell (WBC) count D72.828 [place] [id number] [place] [address] 17518- 3464 Nov, Schizoaffective disorder, depressive type F25.1 [place] [id number] [place] [address] 64622- 2133 Nov, Paranoid schizophrenia F20.0 [place] [id number] [place] [address] 22560- 5726 Nov, Type 2 diabetes mellitus without complication, without long- term current use of insulin E11.9 ; Morbid obesity due to excess calories E66.01 and Chronic pain syndrome G89.4 [place] [id number] [place] [address] 15395- 9488 Oct, Paranoid schizophrenia F20.0 [place] [id number] [place] [address] 93950- 0920 Oct, [place] [id number] [place] [address] 16763- 7410 Oct, Schizoaffective disorder, depressive type F25.1 [place] [id number] [place] [address] 04868- 9679 Oct, Hypothyroidism, unspecified type E03.9 and Other elevated white blood cell (WBC) count D72.828 [place] [address] [place] [address] 88561- 7689 Oct, Morbid obesity due to excess calories E66.01 ; Chronic obstructive pulmonary disease, unspecified COPD type J44.9 ; History of lupus Z87.39 ; Hypothyroidism, unspecified type E03.9 ; Gastroesophageal reflux disease without esophagitis K21.9 ; Primary insomnia F51.01 and Chronic pain syndrome G89.4 [place] [id number] [place] [address] 39914- 4652 Sep, [facility] [address], [place] [address]- 7873 Sep, [facility] [id number] [place] [address] 78368- 6344 Sep, [facility] [id number] [place] [address] 83602- 6733 Sep, Paranoid schizophrenia F20.0 [facility] [id number] [place] [address] 32584- 0361 Sep, [facility] [id number] [place] [address] 46435- 2198 Sep, Paranoid schizophrenia F20.0 [facility] [id number] [place] [address] 29519- 0724 Sep, [facility] [id number] [place] [address] 46711- 4946 August, Paranoid schizophrenia F20.0 [facility] [address] [place] [address] 01066- 3909 Jul, [facility] [id number] [place] [address] 47556- 3292 Jul, Type 2 diabetes mellitus without complication, without long- term current use of insulin E11.9 ; Morbid obesity due to excess calories E66.01 ; Depression with anxiety F41.8 ; Hypothyroidism, unspecified type E03.9 ; Seasonal allergic rhinitis due to other allergic trigger J30.89 ; Pain, dental K08.89 and Gastroesophageal reflux disease without esophagitis K21.9 [facility] [address] [place] [address] [id number] Jul, Dental examination Z01.20 [facility] [id number] [place] [address] 54291- 3910 07 Jul, 2016 Paranoid schizophrenia F20.0 [facility] [id number] [place] [address] 42463- 3216 13 Jun, 2016 Paranoid schizophrenia F20.0 and Depression with anxiety F41.8 [place] [id number] [place] [address] 69177- 5782 10 Jun, 2016 Paranoid schizophrenia F20.0 and Depression with anxiety F41.8 [place] [id number] [place] [address] 76564- 7690 09 Jun, 2016 [place] [address] 47979- 3898 Jun, [facility] [place] [id number] [place] [address] 47240 -0715 Jun, Seasonal allergic rhinitis due to other allergic trigger J30.89 [facility] [place] [id number] [place] [address] 60638 -5631 May, Sore throat J02.9 ; Other viral agents as the cause of diseases classified elsewhere B97.89 and Acute upper respiratory infection, unspecified J06.9 [place] [id number] [place] [address] 40178- 5562 May, Paranoid schizophrenia F20.0 and Depression with anxiety F41.8 [place] [id number] [place] [address] 48315- 5028 Apr, Other seasonal allergic rhinitis J30.2 [place] [id number] [place] [address] 98781- 3981 Apr, Paranoid schizophrenia F20.0 and Depression with anxiety F41.8 [facility] [place] [id number] [place] [address] 73301 -0844 Apr, Bronchitis J40 and Sore throat J02.9 [place] [id number] [place] [address] 98225- 3428 Apr, Type 2 diabetes mellitus without complication, without long- term current use of insulin E11.9 [facility] [place] [id number] [place] [address] 31535 -7254 Apr, Bronchitis J40 [place] [id number] [place] [address] 59691- 2289 Apr, [place] [id number] [place] [address] 06553- 1803 Apr, [place] [id number] [place] [address] 88956- 0708 Mar, Type 2 diabetes mellitus without complication, [...] R60.9 and Other seasonal allergic rhinitis J30.2 [place] [address] 73384- 1728 Mar, Paranoid schizophrenia F20.0 and Depression with anxiety F41.8 [place] [id number] [place] [address] 67679- 0081 Feb, [place] [id number] [place] [address] 41243- 7270 Feb, [place] [id number] [place] [address] 35330- 1988 Feb, [place] [id number] [place] [address] 29235- 0574 Feb, [place] [id number] [place] [address] 54508- 0422 Feb, Type 2 diabetes mellitus without complication, without long- term current use of insulin E11.9 ; ARIAS on CPAP G47.33 and Preoperative evaluation to rule out surgical contraindication Z01.818 [place] [id number] [place] [address] 12108- 1003 Feb, Paranoid schizophrenia F20.0 and Depression with anxiety F41.8 [facility] [address] [facility] [id number] [place] [address]- 6082 Jan, [facility] [address] [facility] [id number] [place] [address], [place] [address]- 5459 Jan, Paranoid schizophrenia F20.0 and Depression with anxiety F41.8 [facility] [id number] [place] [address], [place] [address]- 9656 Jan, [facility] [address] [facility] [id number] [place] [address], [place] [address]- 0719 Jan, Muscle strain T14.8 [facility] [address] [facility] [id number] [place] [address], [place] [address]- 8000 Jan, Paranoid schizophrenia F20.0 [facility] [id number] [place] [address], [place] [address]- 9183 Jan, [facility] [id number] [place] [address] 80154- 7283 Jan, Paranoid schizophrenia F20.0 and Depression with anxiety F41.8 [facility] [address] [facility] [id number] [place] [address], [place] [address]- 2940 Jan, [facility] [id number] [address]- 3542 Jan, [facility] [id number] [place] [address] 68565- 8835 28 Dec, 2015 [facility] [address] [facility] [id number] [address]- 5754 23 Dec, 2015 Paranoid schizophrenia F20.0 [facility] [address] [facility] [id number] [place] [address]- 4334 16 Dec, 2015 Paranoid schizophrenia F20.0 and Depression with anxiety F41.8 [facility] [address] [facility] [id number] [place] [address]- 5329 Nov, [place] [id number] [place] [address] 71627- 5617 Nov, Paranoid schizophrenia F20.0 [place] [id number] [place] [address] 56234- 2559 Nov, Paranoid schizophrenia F20.0 and Depression with anxiety F41.8 [place] [id number] [place] [address] 66415- 3367 Nov, Type 2 diabetes mellitus without complication, without long- term current use of insulin E11.9 ; Paranoid schizophrenia F20.0 ; Chronic obstructive pulmonary disease, unspecified COPD type J44.9 ; Morbid obesity due to excess calories E66.01 and Parkinsonian tremor G20 [place] [id number] [place] [address] 88830- 6764 Nov, [place] [id number] [place] [address] 02841- 3005 Oct, Paranoid schizophrenia F20.0 [place] [id number] [place] [address] 81765- 7317 Oct, Paranoid schizophrenia F20.0 [place] [id number] [place] [address] 77789- 1161 Oct, Paranoid schizophrenia F20.0 and Depression with anxiety F41.8 [place] [id number] [place] [address] 16620- 7941 Oct, [place] [id number] [place] [address] 33242- 7372 Oct, Paranoid schizophrenia F20.0 and Depression with anxiety F41.8 [place] [id number] [place] [address] 39928- 5854 Oct, Nasal sore J34.89 [place] [address] [place] [address] 29674- 7601 Oct, Type 2 diabetes mellitus without complication, without long- term current use of insulin E11.9 ; Depression with anxiety F41.8 ; Hypothyroidism, unspecified type E03.9 and History of lupus Z87.39 [facility] [id number] [place] [address] 64194- 2687 Oct, [facility] [id number] [place] [address] 15479- 2969 Oct, Type 2 diabetes mellitus without complication, [...] edema R60.9 and History of lupus Z87.39 [facility] [id number] [place] [address] 18074- 6592 Feb, [facility] [id number] [place] [address] 65388- 2550 Jan, [facility] [id number] [place] [address] 57799- 1006 Jan, [facility] [id number] [place] [address] 79555- 0996 Jan, [facility] [id number] [place] [address] 99099- 7086 Dec, [facility] [id number] [place] [address] 14619- 5567 Nov, [facility] [id number] [place] [address] 13445- [phone] Nov, [facility] [id number] [place] [address] [id number]- [phone] Oct, [facility] [id number] [place] [phone]- 6300 Oct, [facility] [address] [facility]NOTE [facility]] [id number] [place] [address] Oct, [facility] [address] [facility][NOTE 3] [id number] [place] [address] Sep, Allergic rhinitis 477.9 [facility] [address] [facility][NOTE 3] [id number] [place] [address] Sep, Rhinitis, allergic 477.9 [facility] [address] [facility][NOTE 3] [id number] [place] [address] Sep, Rhinitis, allergic 477.9 [facility] [address] [facility]NOTE 3] [id number] [place] [address] Sep, [facility] [address] [facility]NOTE 3] [id number] [place] [address] August, [facility] [address] [facility][NOTE 3] [id number] [place] [address] August, [facility] [address] [facility][NOTE 3] [id number] [place] [address] August, [facility] [address] [facility][NOTE 3] [id number] [place] [address] 28 Jul, 2014 [facility] [address] [facility] [id number] [place] [address] 14 Jul, 2014 [facility] [address] [facility]NOTE [facility]] [id number] [place] [address] 140[address] 13 Jul, 2014 [facility] [address] [id number] [place] [address]15 16 Jun, 2014 [facility] [place] [facility] [address] [facility] [id number] [place] [address] 16 Jun, 2014 [facility] [place] [facility] [address] [facility] [id number] [place] [address] Jun, [facility] [place] [facility] [address] [facility] [id number] [place] [address] Jun, [facility] [place] [facility] [address] [id number] [place] [address] 9967 Jun, [facility] [place] [facility] [address] [id number] [place] [address] 0259 Jun, [facility] [place] [facility] [address] [id number] [place] [address] 6708 Jun, [facility] [place] [facility] [address] [id number] [place] [address]- 9870 Jun, [facility] [place] [facility] [address] [id number] [place] [address]- 0764 May, [facility] [place] [facility] [address] [id number] [place] [address]- 3007 May, [facility] [place] [facility] [address] [id number] [place] [address]- 2251 May, [facility] [place] [facility] [address] [id number] [place] [address]- 9821 May, [facility] [place] [facility] [address] [id number] [place] [address]- 4311 Apr, [facility] [place] [facility] [address] [id number] [place] [address]- 2886 Mar, [facility] [place] [facility] [address] [id number] [place] [address]- 1499 Mar, [facility] [place] [facility] [address] [id number] [place] [address]- 6344 Mar, [facility] [place] [facility] [address] [id number] [place] [address]- 6031 Mar, [facility] [place] [facility] [address] [id number] [place] [address]- 6835 Mar, [facility] [place] [facility] [address] [id number] [place] [address] Mar, [facility] [place] [facility] [address] [id number] [place] [address]- 4438 05 Mar, 2014 [facility] [place] [facility] [address] [id number] [place] [address]- 0982 Mar, [facility] [place] [facility] [address] [id number] [place] [address] Mar, [facility] [place] [facility] [address] [id number] [place] [address]- 5191 Feb, [facility] [place] [facility] [address] [id number] [place] [address]- 5847 Feb, [facility] [place] [facility] [address] [id number] [place] [address]- 8316 Feb, [facility] [place] [facility] [address] [id number] [place] [address]- 9346 Feb, [facility] [place] [facility] [address] [id number] [place] [address]- 6542 Feb, [facility] [place] [facility] [address] [id number] [place] [address]- 3934 Feb, [facility] [place] [facility] [address] [id number] [place] [address]- 0774 Feb, [facility] [place] [facility] [address] [id number] [place] [address]- 3102 Feb, [facility] [place] [facility] [address] [id number] [place] [address]- 9232 Jan, [facility] [place] [facility] [address] [id number] [place] [address]- 4384 23 Jan, 2014 [facility] [place] [facility] [address] [id number] [place] [address] 3965 16 Jan, 2014 [facility] [place] [facility] [address] [id number] [place] [address]- 3155 16 Jan, 2014 [facility] [place] [facility] [address] [id number] [place] [address]- 2854 15 Jan, 2014 [facility] [place] [facility] [address] [id number] [place] [address]- 9938 15 Jan, 2014 [facility] [place] [facility] [address] [id number] [place] [address] 9911 14 Jan, 2014 [facility] [place] [facility] [address] [id number] [place] [address]- 6601 14 Jan, 2014 [facility] [place] [facility] [address] [id number] [place] [address]- 7925 14 Jan, 2014 [facility] [place] [facility] [address] [id number] [place] [address]- 7158 14 Jan, 2014 [facility] [place] [facility] [address] [id number] [place] [address]- 8757 18 Dec, 2013 [facility] [place] [facility] [address] [id number] [place] [address]- 3851 18 Dec, 2013 [facility] [place] [facility] [address] [id number] [place] [address]- 6646 10 Dec, 2013 [facility] [place] [facility] [address] [id number] [place] [address]- 8233 10 Dec, 2013 [facility] [place] [facility] [address] [id number] [place] [address]- 0652 Nov, [facility] [place] [facility] [address] [id number] [place] [address]- 9676 Nov, [facility] [place] [facility] [address] [id number] [place] [address]- 0757 Nov, [facility] [place] [facility] [address] [id number] [place] [address]- 0721 Nov, [facility] [place] [facility] [address] [id number] [place] [address]- 5533 Nov, [facility] [place] [facility] [address] [id number] [place] [address]- 2638 Oct, [facility] [place] [facility] [address] [id number] [place] [address]- 6893 Oct, [facility] [place] [facility] [address] [id number] [place] [address]- 6697 Oct, [facility] [place] [facility] [address] [id number] [place] [address] Oct, [facility] [place] [facility] [address] [id number] [place] [address]- 6655 Sep, [facility] [place] [facility] [address] [id number] [place] [address]- 8622 Sep, [facility] [place] [facility] [address] [id number] [place] [address]- 6746 Sep, [facility] [place] [facility] [address] [id number] [place] [address]- 6509 Sep, [facility] [place] [facility] [address] [id number] [place] [address]- 0761 Sep, [facility] [place] [facility] [address] [id number] [place] [address]- 6670 Sep, [facility] [place] [facility] [address] [id number] [place] [address]- 4742 Sep, [facility] [place] [facility] [address] [id number] [place] [address]- 7379 Sep, [facility] [place] [facility] [address] [id number] [place] [address]- 5486 August, [facility] [place] [facility] [address] [id number] [place] [address]- 9989 August, [facility] [place] [facility] [address] [id number] [place] [address]- 8168 August, [facility] [place] [facility] [address] [id number] [place] [address]- 4505 August, [facility] [place] [facility] [address] [id number] [place] [address]- 3902 August, [facility] [place] [facility] [address] [id number] [place] [address]- 3589 August, [facility] [place] [facility] [address] [id number] [place] [address]- 5864 August, [facility] [place] [facility] [address] [id number] [place] [address]- 6369 Jul, [facility] [place] [facility] [address] [id number] [place] [address]- 3664 Jul, [facility] [place] [facility] [address] [id number] [place] [address]- 0259 Jul, [facility] [place] [facility] [address] [id number] [place] [address]- 6178 Jul, [facility] [place] [facility] [address] [id number] [place] [address]- 2001 Jul, [facility] [place] [facility] [address] [id number] [place] [address]- 2539 Jul, [facility] [place] [facility] [address] [id number] [place] [address]- 1393 Jul, [facility] [place] [facility] [address] [id number] [place] [address]- 3974 Jul, [facility] [place] [facility] [address] [id number] [place] [address]- 8189 Jul, [facility] [place] [facility] [address] [id number] [place] [address]- 9152 Jul, [facility] [place] [facility] [address] [id number] [place] [address]- 1200 Jul, [facility] [place] [facility] [address] [id number] [place] [address]- 3779 Jul, [facility] [place] [facility] [address] [id number] [place] [address]- 6464 Jun, [facility] [place] [facility] [address] [id number] [place] [address]- 8153 Jun, [facility] [place] [facility] [address] [id number] [place] [address]- 3809 Jun, [facility] [place] [facility] [address] [id number] [place] [address]- 8185 Jun, [facility] [place] [facility] [address] [id number] [place] [address]- 8310 Jun, [facility] [place] [facility] [address] [id number] [place] [address]- 4399 May, [facility] [place] [facility] [address] [id number] [place] [address]- 1213 May, [facility] [place] [facility] [address] [id number] [place] [address]- 4076 May, [facility] [place] [facility] [address] [id number] [place] [address]- 1554 May, [facility] [place] [facility] [address] [id number] [place] [address]- 8129 May, [facility] [place] [facility] [address] [id number] [place] [address]- 1495 May, [facility] [place] [facility] [address] [id number] [place] [address]- 0216 May, [facility] [place] [facility] [address] [id number] [place] [address]- 2591 May, [facility] [place] [facility] [address] [id number] [place] [address]- 6398 Mar, [facility] [place] [facility] [address] [id number] [place] [address]- 4631 Mar, [facility] [place] [facility] [address] [id number] [place] 25[address] Mar, [facility] [place] [facility] [address] [facility]] [id number] [place] [address] Mar, [facility] [place] [facility] [address] [id number] [place] [address]- 8798 Mar, [facility] [place] [facility] [address] [id number] [place] [address]- 4786 Mar, [facility] [place] [facility] [address] [id number] [place] [address]- 4814 Feb, [facility] [place] [facility] [address] [id number] [place] [address]- 9877 Feb, [facility] [place] [facility] [address] [id number] [place] [address]- 0068 Jan, [facility] [place] [facility] [address] [id number] [place] [address]- 8220 Jan, [facility] [place] [facility] [address] [id number] [place] [address]- 6076 Jan, [facility] [place] [facility] [address] [id number] [place] [address]- 3943 Jan, [facility] [place] [facility] [address] [id number] [place] [address]- 7057 Jan, [facility] [place] [facility] [address] [id number] [place] [address]- 2724 Jan, [facility] [place] [facility] [address] [id number] [place] [address]- 8268 Jan, [facility] [place] [facility] [address] [id number] [place] [address]- 7239 Jan, [facility] [place] [facility] [address] [id number] [place] [address]- 2780 Jan, [facility] [place] [facility] [address] [id number] [place] [address]- 1847 Jan, [facility] [place] [facility] [address] [id number] [place] [address]- 2546 16 Dec, 2012 [facility] [place] [facility] [address] [id number] [place] [address]- 5675 Nov, [facility] [address] [id number] [place] [address]- 8212 Nov, [facility] [address] [id number] [place] [address]- 2334 Nov, [facility] [address] [facility] [id number] [place] Oct, [facility] [address] [id number] [place] [address]- 6260 Oct, [facility] [address] [id number] [place] [address]- 5019 August, [facility] [address] [facility] [id number] [place] [address]- 4605 Apr, [facility] [address] [facility] [id number] [place] [address]- 1916 Apr, [facility] [address] [facility] [id number], [place] [address]- 2773 Feb, [facility] [address] [facility]] [id number], [place] [address]- 9832 Feb, [facility] [address] [facility] [id number], [place] [address]- 7731 Dec, [facility] [address] [facility]] [id number], [place] [address]- 7510 Dec, [facility] [address] [facility]] [id number], [place] [address]- 0126 Oct, [facility] [address] [facility] [id number], [place] [address]- 0840 Oct, [facility] [address] [facility]] [id number], [place] [address]- 5961 Oct, [facility] [address] [facility] [id number], [place] [address]- 9807 Jul, IMMUNIZATIONS No Known Immunizations SOCIAL HISTORY Never Assessed REASON FOR VISIT Deferred Lab Orders/Med per Lab Result PLAN OF CARE VITAL SIGNS MEDICATIONS Medication Instructions Dosage Frequency Start Date End Date Duration Status Levothyroxine Sodium 175 MCG Orally Once a day 1 tablet 24h Active Pravastatin Sodium 20 MG Orally Once a day 1 tablet 24h Active RESULTS No Results PROCEDURES No [...]
--- OUTSIDE RECORDS SUMMARY | 2018-09-02 14:37 | XMS REPORT ---
Author Author SOTO STRICKLAND Organization [employer] Address Unknown Phone Unavailable Care Team Providers Care Experimental Mechanic Electrical Name Role Phone SOTO STRICKLAND CP Unavailable [...] End Date Status Dosage ProAir HFA [facility] [address]-71 90 mcg/actuation Inhalation every 4 hrs Nov 2 puffs as needed Breo Ellipta [facility] [address]-28 100-25 mcg/dose Inhalation Once a day July 05, 2014 inhale 1 puff by inhalation route once daily at the same time each day Results No Known Results Summary Purpose [employer] Submission
--- OUTSIDE RECORDS SUMMARY | 2018-09-02 14:38 | XMS REPORT ---
Author Author EDWIN UMESH Organization [facility] Address [address] [place] [address] Care Team Providers Care Tobacco Checkout Clerk Name Role Phone UMESH PINEDA Unavailable PROBLEMS Type Condition ICD9-CM Code DIJ08-LZ Code Onset Dates Condition Status SNOMED Code Problem History of lupus Z87.39 Active 240415715 Problem ARIAS on CPAP G47.33 Active 45260296 Problem OAB (overactive bladder) N32.81 Active 895562312 Problem Menopausal syndrome (hot flashes) N95.1 Active 210987511 Problem Other elevated white blood cell (WBC) count D72.828 Active 387959297 Problem Seasonal allergic rhinitis due to other allergic trigger J30.89 Active 713476433 Problem Gastroesophageal reflux disease without esophagitis K21.9 Active 381329422 Problem Primary insomnia F51.01 Active 5584548 Problem Schizoaffective disorder, depressive type F25.1 Active 35419758 Problem Morbid obesity due to excess calories E66.01 Active 933207437 Problem Depression with anxiety F41.8 Active 314479183 Problem Chronic obstructive pulmonary disease, unspecified COPD type J44.9 Active 31072561 Problem Peripheral edema R60.9 Active 806786145 Problem Paranoid schizophrenia F20.0 Active 50759335 Problem Chronic pain syndrome G89.4 Active 641150138 Problem Parkinsonian tremor G20 Active 297053515 Problem Hypothyroidism, unspecified type E03.9 Active 82488699 Problem Type 2 diabetes mellitus without complication, without long-term current use of insulin E11.9 Active 658600260 ALLERGIES No Information SOCIAL HISTORY Never Assessed [...]
--- OUTSIDE RECORDS SUMMARY | 2018-09-02 14:38 | XMS REPORT ---
Author Author RADHA ROJAS [facility] [employer] Address Unknown Phone Unavailable Care Team Providers Care Healthcare Applications Analyst Name Role Phone RADHA ROJAS CP Unavailable [...] Instructions Start Date End Date Status Dosage Mupirocin NDC [address]-29 2 % Externally Three times a day 1 Application by Nasal route 2 times per day to each nare--disp 22 gram tube sertraline NDC 0 100 mg Once a day November 15, 2012 take 1 tablet ( 100 mg) by oral route once daily Results No Known Results Summary Purpose [employer] Submission
--- OUTSIDE RECORDS SUMMARY | 2018-09-02 14:38 | XMS REPORT ---
Author Author SOTO STRICKLAND Organization [employer] Address Unknown Phone Unavailable Care Team Providers Care Billing Specialist Name Role Phone SOTO STRICKLAND CP Unavailable [...] Date End Date Status Dosage Levothyroxine Sodium [facility] 43308442667 150 MCG Orally Once a day 1 tablet Norvasc [facility] [address]-77 10 mg Orally Once a day 1 tablet Gabapentin [facility] [address]-87 600 MG Orally Three times a day 1 tablet metformin [facility] [address]-95 1,000 mg orally 2 times a day July 05, 2014 1 tablet Breo Ellipta [facility] [address]-75 100-25 mcg/dose Inhalation Once a day July 05, 2014 inhale 1 puff by inhalation route once daily at the same time each day Nexium [facility] [address]-07 40 mg Orally Once a day 1 capsule Tizanidine HCl [facility] [address]-52 4 MG Orally 3 times a day 1 1/2 tablets Results No Known Results Summary Purpose [employer] Submission
--- OUTSIDE RECORDS SUMMARY | 2018-09-02 14:38 | XMS REPORT ---
Author Author UMESH PINEDA Organization [employer] Address Unknown Phone Unavailable Care Team Providers Care Reclamation Engineer Name Role Phone UMESH PINEDA CP Unavailable [...]
--- OUTSIDE RECORDS SUMMARY | 2018-09-02 14:38 | XMS REPORT ---
Author Author JOSE LOYA Organization [employer] Address Unknown Phone Unavailable Care Team Providers Care Topper Press Operator Name Role Phone JOSE LOYA CP Unavailable Allergies No Known Allergies Problems [...] Problem Hypothyroidism, unspecified type E03.9 Active Medications No Known Medications Results No Known Results Summary Purpose [employer] Submission
--- OUTSIDE RECORDS SUMMARY | 2018-09-02 14:38 | XMS REPORT ---
Author Author RADHA ROJAS [facility] e[employer] Address Unknown Phone Unavailable Care Team Providers Care Harp Repairer Name Role Phone RADHA ROJAS CP Unavailable [...] Date End Date Status Dosage Breo Ellipta [facility] [address]-22 100-25 mcg/dose Inhalation, must be seen for more refills Once a day July 05, 2014 inhale 1 puff by inhalation route once daily at the same time each day metformin [facility] [address]-22 1,000 mg oral, must be seen for more refills 2 times a day July 05, 2014 1 tablet Spironolactone [facility] [address]-36 50 MG Orally, must be seen for more refills Once a day 1 tablet Results No Known Results Summary Purpose [employer] Submission
--- OUTSIDE RECORDS SUMMARY | 2018-09-02 14:38 | XMS REPORT ---
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 Name Role Phone RONNI PARIS Unavailable PROBLEMS Type Condition ICD9-CM Code QTF30-QK Code Onset Dates Condition Status SNOMED Code Problem Other seasonal allergic rhinitis J30.2 Active 138370462 Problem Gastroesophageal reflux disease, esophagitis presence not specified K21.9 Active 665359477 Problem Tobacco abuse Z72.0 Active 636409520 Problem Seasonal allergic rhinitis due to pollen J30.1 Active 70274461 Problem History of lupus Z87.39 Active 506811012 Problem COPD exacerbation J44.1 Active 251909789 Problem OAB (overactive bladder) N32.81 Active 313839749 Problem Morbid obesity due to excess calories E66.01 Active 272070176 Problem Dyslipidemia E78.5 Active 526157817 Problem Migraine without aura and without status migrainosus, not intractable G43.009 Active 237292470 Problem Hypothyroidism (acquired) E03.9 Active 784371490 Problem Essential hypertension I10 Active 83674744 Problem Type 2 diabetes mellitus without complication, without long-term current use of insulin E11.9 Active 955823869 Problem Gastroesophageal reflux disease without esophagitis K21.9 Active 442636696 Problem Chronic pain syndrome G89.4 Active 081333548 Problem Paranoid schizophrenia F20.0 Active 12026867 Problem Primary insomnia F51.01 Active 4819692 Problem DM neuro manif type II E11.49 Active 98410331 Problem Depression with anxiety F41.8 Active 835125278 Problem Seasonal allergic rhinitis due to other allergic trigger J30.89 Active 918574008 Problem Menopausal syndrome (hot flashes) N95.1 Active 336952306 Problem Chronic obstructive pulmonary disease, unspecified COPD type J44.9 Active 24960061 Problem Schizoaffective disorder, depressive type F25.1 Active 84475593 Problem Other allergic rhinitis J30.89 Active 873036593 ALLERGIES No Information ENCOUNTERS Encounter Location Date Diagnosis [facility] [id number] [place] [address] 98345- 3837 Nov, [facility] [id number] [place] [address] 01512- 9929 Oct, [facility] [id number] [place] [address] 65525- 2419 Sep, [facility] [id number] [place] [address] 92703- 6127 August, Schizoaffective disorder, depressive type F25.1 [facility] [id number] [place] [address] 08136- 8470 August, [facility] [id number] [place] [address] 80910- 5326 August, [facility] [id number] [place] [address] 95166- 6943 August, [facility] [id number] [place] [address] 32523- 7797 August, Paranoid schizophrenia F20.0 [facility] [id number] [place] [address] 54182- 8293 August, History of lupus Z87.39 and Chronic pain syndrome G89.4 [facility] [id number] [place] [address] 35064- 9589 August, [facility] [id number] [place] [address] 44797 -9106 August, Seasonal allergic rhinitis, unspecified trigger J30.2 and BMI 45.0-49.9, adult Z68.42 [facility] [id number] [place] [address] 60920- 2419 Jul, Schizoaffective disorder, depressive type F25.1 [facility] [id number] [place] [address] 95746- 5851 Jul, [facility] [address] 00247- 2657 Jul, Hypothyroidism (acquired) E03.9 [facility] [address] 74086- 2099 11 Jul, 2017 Chronic obstructive pulmonary disease, unspecified COPD type J44.9 and Type 2 diabetes mellitus without complication, without long-term current use of insulin E11.9 [facility] [address] 07998- 0096 Jul, Paranoid schizophrenia F20.0 [place] [address] 74212- 1849 Jun, Hypothyroidism (acquired) E03.9 and Seasonal allergic rhinitis due to pollen J30.1 [facility] [address] 22235 -2901 Jun, Shortness of breath at rest R06.02 ; COPD exacerbation J44.1 and BMI 45.0-49.9, adult Z68.42 [place] [address] 86209- 8837 Jun, [facility] [address] 13538- 3397 Jun, Paranoid schizophrenia F20.0 ; Depression with anxiety F41.8 and BMI 45.0-49.9, adult Z68.42 [facility] [address] 15340- 9475 Jun, Schizoaffective disorder, depressive type F25.1 [facility] [address] [id number] Jun, Dental caries K02.9 [place] [address] 87952- 2019 Jun, Paranoid schizophrenia F20.0 [place] [address] 58247- 6024 May, Migraine without aura and without status migrainosus, not intractable G43.009 ; DM neuro manif type II E11.49 and Type 2 diabetes mellitus without complication, without long-term current use of insulin E11.9 [facility] [address] [place] [address] 23381- 8349 May, Migraine without aura and without status migrainosus, not intractable G43.009 [facility] [id number] [place] [address]- 1671 May, Depression with anxiety F41.8 [facility] [address] [place] [address] [id number] May, [facility] [id number] [place] [address] 45091- 6287 May, [facility] [address] 826578- 0918 May, [facility] [id number] [place] [address] 68940- 2876 May, Hypothyroidism (acquired) E03.9 [facility] [id number] [place] [address] 64583- 3741 May, Paranoid schizophrenia F20.0 [facility] [id number] [place] [address] 67843- 9495 May, Type 2 diabetes mellitus without complication, [...] N32.81 and Controlled substance agreement signed Z79.899 [facility] [id number] [place] [address] 48531- 2865 May, Controlled substance agreement signed Z79.899 [facility] [id number] [place] [address] 01573- 8790 Apr, [facility] [id number] [place] [address] [id number] Apr, Dental examination Z01.20 [facility] [id number] [place] [address] 33251- 9623 Apr, Paranoid schizophrenia F20.0 [facility] [id number] [place] [address] 39596- 7338 Apr, Hypertension, unspecified type I10 [facility] [id number] [place] [address] 90398- 5493 Apr, Paranoid schizophrenia F20.0 [facility] [id number] [place] [address] 99051- 2334 Apr, [facility] [id number] [place] [address] 67986- 4240 Apr, Tobacco abuse Z72.0 [facility] [id number] [place] [address] 25072- 1835 Apr, [facility] [id number] [place] [address] 10773- 8026 Mar, [facility] [id number] [place] [address] 93534- 4837 Mar, Paranoid schizophrenia F20.0 and BMI 45.0-49.9, adult Z68.42 [facility] [id number] [place] [address] 08998- 8591 Mar, Schizoaffective disorder, depressive type F25.1 [facility] [id number] [place] [address] 00516- 4093 Mar, [facility] [facility] [id number] [place] [address] 33789- 0749 Mar, Schizoaffective disorder, depressive type F25.1 [place] [address] 87551- 4397 Mar, Hypothyroidism, unspecified type E03.9 [facility] [address] 57864 -1800 Feb, Gastroenteritis K52.9 and BMI 45.0-49.9, adult Z68.42 [place] [address] 06875- 8766 Feb, [place] [address] 41375- 7720 Feb, [place] [address] 36312- 6769 Feb, [place] [address] 39694- 5045 16 Feb, 2017 [place] [address] 78126- 0773 10 Feb, 2017 Paranoid schizophrenia F20.0 [place] [address] 53016- 3584 06 Feb, 2017 Gastroesophageal reflux disease without esophagitis K21.9 ; Other seasonal allergic rhinitis J30.2 ; Other allergic rhinitis J30.89 ; Tobacco abuse Z72.0 and BMI 40.0-44.9, adult Z68.41 [place] [address] 59787- 1518 03 Feb, 2017 Onychomycosis B35.1 ; Callus of foot L84 and DM neuro manif type II E11.49 [place] [address] 31337- 1019 Jan, Chronic allergic rhinitis J30.9 [place] [address] [place] [address]- 9340 16 Jan, 2017 [facility] [id number] [place] [address] 66876- 2056 13 Jan, 2017 Schizoaffective disorder, depressive type F25.1 [facility] [id number] [place] [address] 18808- 4019 10 Jan, 2017 [facility] [address] 71941 -4473 07 Jan, 2017 Sore throat J02.9 and Seasonal allergic rhinitis due to other allergic trigger J30.89 [facility] [address] 11024- 1339 04 Jan, 2017 [facility] [address] 13676- 4302 04 Jan, 2017 [facility] [address] 48607 -9293 Jan, Chronic allergic rhinitis J30.9 [facility] [id number] [place] [address] 34140- 6162 27 Dec, 2016 Paranoid schizophrenia F20.0 ; Primary insomnia F51.01 and Schizoaffective disorder, depressive type F25.1 [facility] [id number] [place] [address] 28235- 5669 21 Dec, 2016 Chronic pain syndrome G89.4 ; Cervicalgia of occipito- atlanto-axial region M54.2 ; Menopausal syndrome (hot flashes) N95.1 and Encounter for immunization Z23 [facility] [id number] [place] [address] 40537- 7488 14 Dec, 2016 [facility] [address] 49257- 8108 13 Dec, 2016 [facility] [id number] [place] [address] 23097- 5080 08 Dec, 2016 Paranoid schizophrenia F20.0 [place] [address] [place] [address]- 6874 Dec, Schizoaffective disorder, depressive type F25.1 [facility] [id number] [place] [address] 67147- 4422 Nov, Hypothyroidism, unspecified type E03.[address] [facility] [id number] [place] [address] 04130 -8532 Nov, Acute seasonal allergic rhinitis due to other allergen J30.89 [facility] [id number] [place] [address] 69340- 5946 Nov, [place] [address] 19031- 1486 Nov, Hypothyroidism, unspecified type E03.9 and Other elevated white blood cell (WBC) count D72.828 [place] [address] 76705- 8124 Nov, Schizoaffective disorder, depressive type F25.1 [place] [facility] [id number] [place] [address] 02889- 7594 Nov, Paranoid schizophrenia F20.0 [facility] [facility] [id number] [place] [address] 80881- 8679 Nov, Type 2 diabetes mellitus without complication, without long- term current use of insulin E11.9 ; Morbid obesity due to excess calories E66.01 and Chronic pain syndrome G89.4 [place] [id number] [place] [address] 43838- 2669 Oct, Paranoid schizophrenia F20.0 [facility] [id number] [place] [address] 41425- 2912 Oct, [facility] [facility] [id number] [place] [address] 67083- 1723 Oct, Schizoaffective disorder, depressive type F25.1 [facility] [facility] [id number] [place] [address] 55485- 8380 Oct, Hypothyroidism, unspecified type E03.9 and Other elevated white blood cell (WBC) count D72.828 [place] [facility] [id number] [place] [address] 59674- 5350 Oct, Morbid obesity due to excess calories E66.01 ; Chronic obstructive pulmonary disease, unspecified COPD type J44.9 ; History of lupus Z87.39 ; Hypothyroidism, unspecified type E03.9 ; Gastroesophageal reflux disease without esophagitis K21.9 ; Primary insomnia F51.01 and Chronic pain syndrome G89.4 [facility] [id number] [place] [address] 80658- 1681 Sep, [facility] [id number] [place] [address] 99448- 5396 Sep, [facility] [id number] [place] [address] 58674- 8430 Sep, [facility] [id number] [place] [address] 43565- 2832 Sep, Paranoid schizophrenia F20.0 [facility] [facility] [id number] [place] [address] 11339- 9047 Sep, [facility] [id number] [place] [address] 37455- 5262 Sep, Paranoid schizophrenia F20.0 [facility] [facility] [id number] [place] [address] 41553- 1379 Sep, [facility] [id number] [place] [address] 97277- 6466 August, Paranoid schizophrenia F20.0 [facility] [id number] [place] [address] 94084- 5882 Jul, [facility] [id number] [place] [address] 00893- 4329 Jul, Type 2 diabetes mellitus without complication, without long- term current use of insulin E11.9 ; Morbid obesity due to excess calories E66.01 ; Depression with anxiety F41.8 ; Hypothyroidism, unspecified type E03.9 ; Seasonal allergic rhinitis due to other allergic trigger J30.89 ; Pain, dental K08.89 and Gastroesophageal reflux disease without esophagitis K21.9 [facility] [address] [place] [address] 12 Jul, 2016 Dental examination Z01.20 [place] [id number] [place] [address] 44326- 0282 07 Jul, 2016 Paranoid schizophrenia F20.0 [place] [id number] [place] [address] 15464- 8358 13 Jun, 2016 Paranoid schizophrenia F20.0 and Depression with anxiety F41.8 [place] [id number] [place] [address] 81128- 8995 Jun, Paranoid schizophrenia F20.0 and Depression with anxiety F41.8 [facility] [id number] [place] [address] 66787- 3406 09 Jun, 2016 [place] [id number] [place] [address] 94040- 4898 Jun, [facility] [id number] [place] [address] 26580 -2143 Jun, Seasonal allergic rhinitis due to other allergic trigger J30.89 [facility] [address] [place] [id number] [place] [address] 43994 -0009 May, Sore throat J02.9 ; Other viral agents as the cause of diseases classified elsewhere B97.89 and Acute upper respiratory infection, unspecified J06.9 [place] [address] [place] [address] 06928- 7503 May, Paranoid schizophrenia F20.0 and Depression with anxiety F41.8 [place] [id number] [place] [address] 95611- 4783 Apr, Other seasonal allergic rhinitis J30.2 [place] [id number] [place] [address] 56967- 3358 Apr, Paranoid schizophrenia F20.0 and Depression with anxiety F41.8 [facility] [id number] [place] [address] 53059 -7399 Apr, Bronchitis J40 and Sore throat J02.9 [place] [facility] [id number] [place] [address] 35463- 1571 Apr, Type 2 diabetes mellitus without complication, without long- term current use of insulin E11.9 [facility] [id number] [place] [address] 93870 -3728 Apr, Bronchitis J40 [place] [address] 39137- 5140 Apr, [place] [id number] [place] [address] 94528- 3560 Apr, [place] [id number] [place] [address] 10604- 4000 Mar, Type 2 diabetes mellitus without complication, [...] Other seasonal allergic rhinitis J30.2 [facility] [id number] [place] [address] 22171- 0744 Mar, Paranoid schizophrenia F20.0 and Depression with anxiety F41.8 [facility] [id number] [place] [address] 90866- 2682 Feb, [facility] [id number] [place] [address] 84442- 4082 Feb, [place] [id number] [place] [address] 13941- 3703 Feb, [facility] [address] [place] [address] 85239- 3374 Feb, [facility] [id number] [place] [address] 42605- 6393 Feb, Type 2 diabetes mellitus without complication, without long- term current use of insulin E11.9 ; ARIAS on CPAP G47.33 and Preoperative evaluation to rule out surgical contraindication Z01.818 [facility] [id number] [place] [address] 16186- 0666 09 Feb, 2016 Paranoid schizophrenia F20.0 and Depression with anxiety F41.8 [facility] [id number] [place] [address] 82347- 1184 Jan, [facility] [id number] [place] [address] 69690- 8476 Jan, Paranoid schizophrenia F20.0 and Depression with anxiety F41.8 [facility] [id number] [place] [address] 05149- 7435 Jan, [facility] [id number] [place] [address] 04404- 9158 Jan, Muscle strain T14.8 [facility] [id number] [place] [address] 03548- 5836 Jan, Paranoid schizophrenia F20.0 [facility] [id number] [place] [address] 18935- 8961 Jan, [facility] [id number] [place] [address] 47342- 1912 Jan, Paranoid schizophrenia F20.0 and Depression with anxiety F41.8 [facility] [id number] [place] [address] 38018- 1016 Jan, [facility] [id number] [place] [address] 61417- 4740 Jan, [facility] [address] [place] [address]- 9423 28 Dec, 2015 [facility] [address] [address]- 0328 23 Dec, 2015 Paranoid schizophrenia F20.0 [facility] [address] [address]- 8938 16 Dec, 2015 Paranoid schizophrenia F20.0 and Depression with anxiety F41.8 [facility] [address] [place] [address] 29309- 0699 Nov, [facility] [address] [place] [address] 69938- 0124 Nov, Paranoid schizophrenia F20.0 [facility] [address] [place] [address] 69353- 5455 Nov, Paranoid schizophrenia F20.0 and Depression with anxiety F41.8 [facility] [address] [place] [address] 49789- 2449 Nov, Type 2 diabetes mellitus without complication, without long- term current use of insulin E11.9 ; Paranoid schizophrenia F20.0 ; Chronic obstructive pulmonary disease, unspecified COPD type J44.9 ; Morbid obesity due to excess calories E66.01 and Parkinsonian tremor G20 [facility] [address] [address]- 0133 Nov, [facility] [address] [address]- 3268 Oct, Paranoid schizophrenia F20.0 [facility] [address] [address]- 6453 Oct, Paranoid schizophrenia F20.0 [facility] [address] [place] [address] 00589- 2757 Oct, Paranoid schizophrenia F20.0 and Depression with anxiety F41.8 [facility] [address] [place] [address] 02794- 4596 Oct, [place] [address] [address]- 2453 Oct, Paranoid schizophrenia F20.0 and Depression with anxiety F41.8 [facility] [id number] [place] [address] 89230- 3204 Oct, Nasal sore J34.89 [facility] [id number] [place] [address] 79489- 7120 Oct, Type 2 diabetes mellitus without complication, without long- term current use of insulin E11.9 ; Depression with anxiety F41.8 ; Hypothyroidism, unspecified type E03.9 and History of lupus Z87.39 [facility] [id number] [place] [address] 88098- 9622 Oct, [facility] [id number] [place] [address] 10522- 2937 Oct, Type 2 diabetes mellitus without complication, [...] edema R60.9 and History of lupus Z87.39 [place] [address] [place] [address] 76484- 1227 Feb, [facility] [id number] [place] [address] 05636- 5346 Jan, [facility] [id number] [place] [address] 56143- 7930 Jan, [place] [id number] [place] [phone] Jan, [place] [address] [id number] [place] [address] Dec, [facility] [address] [facility] [id number] [place] [address] Nov, [facility] [address] [facility] [id number] [place] Nov, [facility] [address] [facility] [id number] [place] [address] Oct, [facility] [address] [facility] [id number] [place] [address] Oct, [facility] [address] [facility] [id number] [place] [address] Oct, [facility] [id number] [place] [address] Sep, Allergic rhinitis 477.9 [facility] [id number] [place] [address] Sep, Rhinitis, allergic 477.9 [facility] [address] [id number] [place] [address] Sep, Rhinitis, allergic 477.9 [facility] [address] [id number] [place] [address] Sep, [facility] [address] [id number] [place] [address] August, [facility] [address] [facility] [id number] [address] August, [facility] [address] [id number] [address] August, [facility] [address] [id number] [address] Jul, [facility] [address] [id number] [address] Jul, [facility] [id number] [place] [address] 13 Jul, 2014 [facility] [address] [id number] [place] [address] 16 Jun, 2014 [facility] [place] [facility] [address] [id number] [place] [address] 8272 16 Jun, 2014 [facility] [place] [facility] [address] [id number] [place] [address] 4347 Jun, [facility] [place] [facility] [address] [id number] [place] [address] 1893 Jun, [facility] [place] [facility] [address] [id number] [place] [address] 6291 Jun, [facility] [place] [facility] [address] [id number] [place] [address] 4931 Jun, [facility] [place] [facility] [address] [id number] [place] [address] 4531 Jun, [facility] [place] [facility] [address] [id number] [place] [address] 7292 Jun, [facility] [place] [facility] [address] [id number] [place] [address] 4064 May, [facility] [place] [facility] [address] [id number] [place] [address] 4961 May, [facility] [place] [facility] [address] [id number] [place] [address] 8338 May, [facility] [place] [facility] [address] [id number] [place] [address] 3123 May, [facility] [place] [facility] [address] [id number] [place] [address]- 2353 Apr, [facility] [place] [facility] [address] [id number] [place] [address] 6016 Mar, [facility] [place] [facility] [address] [id number] [place] [address]- 6569 Mar, [facility] [place] [facility] [address] [id number] [place] [address]- 1004 Mar, [facility] [place] [facility] [address] [id number] [place] [address]- 2295 Mar, [facility] [place] [facility] [address] [id number] [place] [address]- 5549 Mar, [facility] [place] [facility] [address] [id number] [place] [address] 3801 Mar, [facility] [place] [facility] [address] [id number] [place] [address]- 5382 Mar, [facility] [place] [facility] [address] [id number] [place] [address] 1300 Mar, [facility] [place] [facility] [address] [id number] [place] [address]- 1677 Mar, [facility] [place] [facility] [address] [id number] [place] [address]- 6278 Feb, [facility] [place] [facility] [address] [id number] [place] [address]- 3817 Feb, [facility] [place] [facility] [address] [id number] [place] [address]- 5914 Feb, [facility] [place] [facility] [address] [id number] [place] [address]- 4018 Feb, [facility] [place] [facility] [address] [id number] [place] [address]- 2167 Feb, [facility] [place] [facility] [address] [id number] [place] [address]- 9394 Feb, [facility] [place] [facility] [address] [id number] [place] [address]- 8061 Feb, [facility] [place] [facility] [address] [id number] [place] [address]- 7995 Feb, [facility] [place] [facility] [address] [id number] [place] [address]- 8837 23 Jan, 2014 [facility] [place] [facility] [address] [id number] [place] [address]- 2554 23 Jan, 2014 [facility] [place] [facility] [address] [id number] [place] [address]- 9300 16 Jan, 2014 [facility] [place] [facility] [address] [id number] [place] [address]- 3650 16 Jan, 2014 [facility] [place] [facility] [address] [id number] [place] [address]- 6582 15 Jan, 2014 [facility] [place] [facility] [address] [id number] [place] [address]- 6074 15 Jan, 2014 [facility] [place] [facility] [address] [id number] [place] [address]- 7861 14 Jan, 2014 [facility] [place] [facility] [address] [id number] [place] [address]- 6452 14 Jan, 2014 [facility] [place] [facility] [address] [id number] [place] [address]- 8048 14 Jan, 2014 [facility] [place] [facility] [address] [id number] [place] [address]- 4958 14 Jan, 2014 [facility] [place] [facility] [address] [id number] [place] [address]- 4038 18 Dec, 2013 [facility] [place] [facility] [address] [id number] [place] [address]- 8448 18 Dec, 2013 [facility] [place] [facility] [address] [id number] [place] [address]- 7004 10 Dec, 2013 [facility] [place] [facility] [address] [id number] [place] [address]- 4072 10 Dec, 2013 [facility] [place] [facility] [address] [id number] [place] [address]- 1409 Nov, [facility] [place] [facility] [address] [id number] [place] [address]- 8568 Nov, [facility] [place] [facility] [address] [id number] [place] [address]- 2771 Nov, [facility] [place] [facility] [address] [id number] [place] [address]- 0948 Nov, [facility] [place] [facility] [address] [id number] [place] [address]- 0101 Nov, [facility] [place] [facility] [address] [id number] [place] [address]- 1427 Oct, [facility] [place] [facility] [address] [id number] [place] [address]- 2109 Oct, [facility] [place] [facility] [address] [id number] [place] [address]- 0132 Oct, [facility] [place] [facility] [address] [id number] [place] [address]- 3530 Oct, [facility] [place] [facility] [address] [id number] [place] [address]- 5284 Sep, [facility] [place] [facility] [address] [id number] [place] [address]- 5710 Sep, [facility] [place] [facility] [address] [id number] [place] [address]- 5279 Sep, [facility] [place] [facility] [address] [id number] [place] [address]- 5327 Sep, [facility] [place] [facility] [address] [id number] [place] [address]- 0362 Sep, [facility] [place] [facility] [address] [id number] [place] [address]- 1617 Sep, [facility] [place] [facility] [address] [id number] [place] [address]- 7337 Sep, [facility] [place] [facility] [address] [id number] [place] [address]- 1273 Sep, [facility] [place] [facility] [address] [id number] [place] [address]- 6038 August, [facility] [place] [facility] [address] [id number] [place] [address]- 4403 August, [facility] [place] [facility] [address] [id number] [place] [address]- 9243 August, [facility] [place] [facility] [address] [id number] [place] [address]- 4317 August, [facility] [place] [facility] [address] [id number] [place] [address]- 1349 August, [facility] [place] [facility] [address] [id number] [place] [address]- 3695 August, [facility] [place] [facility] [address] [id number] [place] [address]- 3605 August, [facility] [place] [facility] [address] [id number] [place] [address]- 4378 Jul, [facility] [place] [facility] [address] [id number] [place] [address]- 8190 Jul, [facility] [place] [facility] [address] [id number] [place] [address]- 5923 Jul, [facility] [place] [facility] [address] [id number] [place] [address]- 7203 Jul, [facility] [place] [facility] [address] [id number] [place] [address]- 1293 Jul, [facility] [place] [facility] [address] [id number] [place] [address]- 6529 Jul, [facility] [place] [facility] [address] [id number] [place] [address]- 8864 Jul, [facility] [place] [facility] [address] [id number] [place] [address]- 8859 Jul, [facility] [place] [facility] [address] [id number] [place] [address]- 0146 Jul, [facility] [place] [facility] [address] [id number] [place] [address]- 6745 Jul, [facility] [place] [facility] [address] [id number] [place] [address]- 0156 Jul, [facility] [place] [facility] [address] [id number] [place] [address]- 1192 Jul, [facility] [place] [facility] [address] [id number] [place] [address]- 0391 Jun, [facility] [place] [facility] [address] [id number] [place] [address]- 9803 Jun, [facility] [place] [facility] [address] [id number] [place] [address]- 0211 Jun, [facility] [place] [facility] [address] [facility] [id number] [place] [address]- 4511 Jun, [facility] [place] [facility] [address] [facility] [id number] [place] [address]- 7096 Jun, [facility] [place] [facility] [address] [id number] [place] [address]- 0100 May, [facility] [place] [facility] [address] [id number] [place] [address]- 7938 May, [facility] [place] [facility] [address] [facility] [id number] [place] [address]- 0517 May, [facility] [place] [facility] [address] [facility] [id number] [place] [address]- 1837 May, [facility] [place] [facility] [address] [id number] [place] [address]- 2486 May, [facility] [place] [facility] [address] [id number] [place] [address]- 5581 May, [facility] [place] [facility] [address] [facility] [id number] [place] [address]- 1733 May, [facility] [place] [facility] [address] [facility] [id number] [place] [address]- 2285 May, [facility] [place] [facility] [address] [id number] [place] [address]- 9142 Mar, [facility] [place] [facility] [address] [id number] [place] [address]- 7294 Mar, [facility] [place] [facility] [address] [facility] [id number] [place] [address]- 5381 Mar, [facility] [place] [facility] [address] [id number] [place] [address]- 1794 Mar, [facility] [place] [facility] [address] [id number] [place] [address]- 8275 Mar, [facility] [place] [facility] [address] [id number] [place] [address]- 5235 Mar, [facility] [place] [facility] [address] [id number] [place] [address]- 2214 Feb, [facility] [place] [facility] [address] [id number] [place] [address]- 4925 Feb, [facility] [place] [facility] [address] [id number] [place] [address]- 9005 Jan, [facility] [place] [facility] [address] [id number] [place] [address]- 3161 Jan, [facility] [place] [facility] [address] [id number] [place] [address]- 5926 Jan, [facility] [place] [facility] [address] [id number] [place] [address]- 0870 Jan, [facility] [place] [facility] [address] [id number] [place] [address]- 4542 Jan, [facility] [place] [facility] [address] [facility] [id number] [place] [address]- 9008 Jan, [facility] [place] [facility] [address] [facility] [id number] [place] [address]- 0748 Jan, [facility] [place] [facility] [address] [id number] [place] [address]- 7917 Jan, [facility] [address] [id number] [place] [address]- 0502 Jan, [facility] [address] [id number] [place] [address]- 6126 Jan, [facility] [address] [id number] [place] [address]- 6612 Dec, [facility] [address] [id number] [place] [address]- 7433 Nov, [facility] [address] [id number] [place] [address]- 0247 Nov, [facility] [address] [id number] [place] [address]- 9772 Nov, [facility] [address] [id number] [place] [address]- 3516 Oct, [facility] [address] [id number] [place] [address]- 6904 Oct, [facility] [address] [id number] [place] [address]- 6646 August, [facility] [address] [id number] [place] [address]- 6112 Apr, [facility] [address] [id number] [place] [address]- 5618 Apr, [facility] [address] [id number] [place] [address]- 8232 Feb, [facility] [address] [id number] [place] [address]- 0515 Feb, [facility] [address] [id number] [place] [address]- 2813 Dec, [facility] [address] [id number] [place] [address]- 4289 Dec, [facility] [address] [facility] [id number] [place] [address]- 2326 Oct, [facility] [address] [facility] [id number] [place] [address]- 2526 Oct, [facility] [address] [facility] [id number] [place] [address] 2546 Oct, [facility] [address] [facility] [id number] [place] [address] 2546 Jul, IMMUNIZATIONS No Known Immunizations SOCIAL HISTORY Never Assessed REASON FOR VISIT Lab (walk-in)--[facility] PLAN OF CARE VITAL SIGNS MEDICATIONS Unknown Medications RESULTS Name Result Date Reference Range TSH 2017-04-06 TSH 36.79 0.40-4.50 PROCEDURES Procedure Date Ordered Result Body Site LAB NOT BILLED BY [facility] Apr 06, 2017 VENIPUNCT, ROUTINE* Apr 06, 2017 INSTRUCTIONS MEDICATIONS ADMINISTERED No [...] for psychosis/mental illness , last one in [facility] 4 years ago
--- OUTSIDE RECORDS SUMMARY | 2018-09-02 14:39 | XMS REPORT ---
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 Name Role Phone RUBY PINEDAAUSTIN Unavailable PROBLEMS Type Condition ICD9-CM Code [id number] Code Onset Dates Condition Status SNOMED Code Problem Type 2 diabetes mellitus without complication, without long-term current use of insulin E11.9 Active 748524219 Problem OAB (overactive bladder) N32.81 Active 915580826 Problem History of lupus Z87.39 Active 840221976 Problem Other elevated white blood cell (WBC) count D72.828 Active 827005702 Problem Primary insomnia F51.01 Active 3281053 Problem Gastroesophageal reflux disease without esophagitis K21.9 Active 951742090 Problem ARIAS on CPAP G47.33 Active 55483109 Problem Schizoaffective disorder, depressive type F25.1 Active 18669301 Problem Seasonal allergic rhinitis due to other allergic trigger J30.89 Active 772700838 Problem Chronic obstructive pulmonary disease, unspecified COPD type J44.9 Active 19687649 Problem Morbid obesity due to excess calories E66.01 Active 425784457 Problem Hypothyroidism, unspecified type E03.9 Active 46823089 Problem Peripheral edema R60.9 Active 111573186 Problem Depression with anxiety F41.8 Active 935040004 Problem Paranoid schizophrenia F20.0 Active 36391976 Problem Chronic pain syndrome G89.4 Active 014335806 Problem Parkinsonian tremor G20 Active 150979565 ALLERGIES Substance Reaction Event Type Date Status Penicillins Unknown Non Drug Allergy Apr, Active Sulfa(sulfonamide Antibiotics) Unknown Non Drug Allergy Apr, Active SOCIAL HISTORY No smoking Hx information available PLAN OF CARE Activity Details Follow Up 4 Weeks Reason: VITAL SIGNS Height 57 in 2016-05-06 Weight 213.0 lbs 2016-05-06 Heart Rate 92 bpm 2016-05-06 Respiratory Rate 22 2016-05-06 BMI 46.09 kg/m2 2016-05-06 Blood pressure systolic 113 mmHg 2016-05-06 Blood pressure diastolic 82 mmHg 2016-05-06 MEDICATIONS Medication Instructions Dosage Frequency Start Date End Date Duration Status Ventolin HFA 108 (90 Base) MCG/ACT Inhalation every 4 hrs 2 puffs as needed 4h Feb, 90 days Active Levothyroxine Sodium 150 MCG Orally Once a day 1 tablet 24h 90 Active Vistaril 25MG Orally every 8 hrs 1 capsule as needed 8h 30 Active Premarin 0.625 MG/GM insert 0.5 gram by vaginal route twice weekly Active Ventolin HFA 108MCG/A INHALE TWO PUFFS BY MOUTH EVERY 4 HOURS NEEDED 90 Active Tizanidine HCl 4 MG Orally 3 times a day 1 1/2 tablets 8h Active Sertraline HCl 100 MG Orally Once a day 1 tablet 24h Active Belsomra 20 mg Orally Once a day 1 tablet at bedtime as needed 24h Apr, Active Metformin HCl 1000 MG Orally Twice a day 1 tablet with meals 12h Mar, 90 days Active Breo Ellipta 100-25 mcg/dose Inhalation Once a day inhale 1 puff by inhalation route once daily at the same time each day 24h Jun,Mar 90 days Active Ibuprofen 600 MG Orally Three times a day 1 tablet 8h Mar,Jun 90 days Active Claritin 10MG Orally Once a day 1 tablet 24h 90 days Active Januvia 25 MG Orally Once a day 2 tablets 24h Mar, 90 days Active Nexium 40MG Orally Once a day 1 capsule 24h 90 Active Norvasc 10MG Orally Once a day 1 tablet 24h 30 Active metformin 1,000 mg orally 2 times a day 1 tablet 12h Jun, Active Restasis 0.05 % instill 1 drop into affected eye(s) by ophthalmic route 2 times per day Oct, Active PredniSONE 10 mg Orally Once a day 1 tablet 24h Apr, Apr, 05 days Active Invega Sustenna 234 MG/1.5ML Intramuscular Once a month, on the 10th of every month 1.5 ml Active Norvasc 10 mg Orally Once a day 1 tablet 24h 30 Active Claritin 10 mg Orally Once a day 1 tablet 24h Active Pravastatin Sodium 10 MG Orally Once a day 1 tablet 24h 30 Active Doxycycline Hyclate 100 MG Orally every 12 hrs 1 tablet 12h Apr, Apr, 5 day(s) Active Spironolactone 50MG Orally Once a day 1 tablet 24h 90 Active Suvorexant 10 mg Orally Once a day 1 tablet at bedtime as needed 24h Mar Active Nexium 40 mg Orally Once a day 1 capsule 24h 90 days Active Gabapentin 600 MG Orally Three times a day 1 tablet 8h 90 Active Myrbetriq 50 MG Orally Once a day 1 tablet 24h 90 days Active Metformin HCl 1000MG TAKE ONE TABLET BY MOUTH TWICE DAILY 90 Active RESULTS No Results PROCEDURES Procedure Date Ordered Related Diagnosis Body Site INVEGA (PT'S OWN) May 06, 2016 THER/PROPH/DIAG INJ, SC/IM May 06, 2016 Office Visit, Est Pt., Level 2 May 06, 2016 [facility] VISIT ESTABLISHED PATIENT May 06, 2016 IMMUNIZATIONS Vaccine Route Administration Date Status INVEGA (PT'S OWN) IM Intramuscular May 06, 2016 Administered
--- OUTSIDE RECORDS SUMMARY | 2018-09-02 14:39 | XMS REPORT ---
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 Role Phone RUBY PINEDAAUSTIN Unavailable PROBLEMS Type Condition ICD9-CM Code [id number] Code Onset Dates Condition Status SNOMED Code Problem Morbid obesity due to excess calories E66.01 Active 628394808 Problem Type 2 diabetes mellitus without complication, without long-term current use of insulin E11.9 Active 920997495 Problem Paranoid schizophrenia F20.0 Active 93408105 Problem Other elevated white blood cell (WBC) count D72.828 Active 073756697 Problem Primary insomnia F51.01 Active 4260087 Problem Gastroesophageal reflux disease without esophagitis K21.9 Active 607732132 Problem ARIAS on CPAP G47.33 Active 98645452 Problem Schizoaffective disorder, depressive type F25.1 Active 23221661 Problem Seasonal allergic rhinitis due to other allergic trigger J30.89 Active 943289868 Problem History of lupus Z87.39 Active 167123872 Problem Peripheral edema R60.9 Active 588248709 Problem OAB (overactive bladder) N32.81 Active 933203880 Problem Depression with anxiety F41.8 Active 215371307 Problem Parkinsonian tremor G20 Active 512174605 Problem Chronic pain syndrome G89.4 Active 147214440 Problem Hypothyroidism, unspecified type E03.9 Active 90834945 Problem Chronic obstructive pulmonary disease, unspecified COPD type J44.9 Active 61963907 ALLERGIES Substance Reaction Event Type Date Status Penicillins Unknown Non Drug Allergy Mar, Active Sulfa(sulfonamide Antibiotics) Unknown Non Drug Allergy Mar, Active SOCIAL HISTORY No smoking Hx information available PLAN OF CARE Activity Details Follow Up 4 Weeks Reason: VITAL SIGNS Height 57 in 2016-04-03 Weight 218.0 lbs 2016-04-03 Heart Rate 84 bpm 2016-04-03 Respiratory Rate 20 2016-04-03 BMI 47.17 kg/m2 2016-04-03 Blood pressure systolic 117 mmHg 2016-04-03 Blood pressure diastolic 68 mmHg 2016-04-03 MEDICATIONS Medication Instructions Dosage Frequency Start Date End Date Duration Status Sertraline HCl 100 MG Orally Once a day 1 tablet 24h Active Breo Ellipta 100-25 mcg/dose Inhalation Once a day inhale 1 puff by inhalation route once daily at the same time each day 24h Jun, Active Levothyroxine Sodium 150 MCG Orally Once a day 1 tablet 24h 30 Active metformin 1,000 mg orally 2 times a day 1 tablet 12h Jun, Active Nexium 40MG Orally Once a day 1 capsule 24h 30 Active Premarin 0.625 MG/GM insert 0.5 gram by vaginal route twice weekly Active Suvorexant 10 mg Orally Once a day 1 tablet at bedtime as needed 24h Mar Active Spironolactone 50MG Orally Once a day 1 tablet 24h 30 Active Spironolactone 50 mg Orally Once a day 1 tablet 24h Active Myrbetriq 50 MG Orally Once a day 1 tablet 24h Active Trazodone HCl 150 MG Orally Once a day 1 tablet at bedtime as needed 24h Active Gabapentin 600 MG Orally Three times a day 1 tablet 8h 30 Active Tizanidine HCl 4 MG Orally 3 times a day 1 1/2 tablets 8h Active Claritin 10 mg Orally Once a day 1 tablet 24h Active Restasis 0.05 % instill 1 drop into affected eye(s) by ophthalmic route 2 times per day Oct, Active Ambien 5 mg Orally Once a day 1 tablet at bedtime 24h Active Norvasc 10 mg Orally Once a day 1 tablet 24h 30 Active Ventolin HFA 108 (90 Base) MCG/ACT Inhalation every 4 hrs 2 puffs as needed 4h Feb, Active Vistaril 25MG Orally every 8 hrs 1 capsule as needed 8h 30 Active Triamcinolone Acetonide 0.5 % APPLY TOPICALLY TWICE DAILY 15 Active Loxapine Succinate 25 MG Orally 4 times a day PRN 1 capsule Active Pravastatin Sodium 10 MG Orally Once a day 1 tablet 24h 30 Active Metformin HCl 1000MG TAKE ONE TABLET BY MOUTH TWICE DAILY 30 Active Mupirocin 2 % Externally Three times a day 1 Application by Nasal route 2 times per day to each nare--disp 22 gram tube 8h Mar, Active Invega Sustenna 234 MG/1.5ML Intramuscular Once a month, on the 10th of every month 1.5 ml 09 Dec, 2016 Active Nexium 40 mg Orally Once a day 1 capsule 24h 30 Active Vistaril 25 MG Orally every 8 hrs 1 capsule as needed 8h Active Claritin 10MG Orally Once a day 1 tablet 24h 30 Active RESULTS No Results PROCEDURES Procedure Date Ordered Related Diagnosis Body Site INVEGA (PT'S OWN) Apr 03, 2016 THER/PROPH/DIAG INJ, SC/IM Apr 03, 2016 Office Visit, Est Pt., Level 2 Apr 03, 2016 [facility] VISIT ESTABLISHED PATIENT Apr 03, 2016 IMMUNIZATIONS Vaccine Route Administration Date Status INVEGA (PT'S OWN) IM Intramuscular Apr 03, 2016 Administered
--- OUTSIDE RECORDS SUMMARY | 2018-09-02 14:39 | XMS REPORT ---
Author Author SOTO STRICKLAND Organization [facility] [place] Address [address] [place] [address] Care Team Providers Care Technology Specialist Name Role Phone SOTO STRICKLAND Unavailable PROBLEMS Type Condition ICD9-CM Code SBX79-GC Code Onset Dates Condition Status SNOMED Code Problem Other allergic rhinitis J30.89 Active 105439792 Problem Tobacco abuse Z72.0 Active 303935491 Problem Other seasonal allergic rhinitis J30.2 Active 312640320 Problem COPD exacerbation J44.1 Active 119510215 Problem OAB (overactive bladder) N32.81 Active 703986246 Problem Hypothyroidism (acquired) E03.9 Active 884071869 Problem Morbid obesity due to excess calories E66.01 Active 015782650 Problem Chronic obstructive pulmonary disease, unspecified COPD type J44.9 Active 98872249 Problem Migraine without aura and without status migrainosus, not intractable G43.009 Active 819903523 Problem Gastroesophageal reflux disease, esophagitis presence not specified K21.9 Active 423419984 Problem Essential hypertension I10 Active 07266128 Problem Dyslipidemia E78.5 Active 784279226 Problem Chronic pain syndrome G89.4 Active 943244565 Problem Paranoid schizophrenia F20.0 Active 86933222 Problem Type 2 diabetes mellitus without complication, without long-term current use of insulin E11.9 Active 429985361 Problem History of lupus Z87.39 Active 201915770 Problem Schizoaffective disorder, depressive type F25.1 Active 71449467 Problem Primary insomnia F51.01 Active 0758919 Problem Gastroesophageal reflux disease without esophagitis K21.9 Active 622648237 Problem DM neuro manif type II E11.49 Active 76307899 Problem Depression with anxiety F41.8 Active 742147620 Problem Seasonal allergic rhinitis due to other allergic trigger J30.89 Active 883749060 Problem Menopausal syndrome (hot flashes) N95.1 Active 611629136 ALLERGIES No Information ENCOUNTERS Encounter Location Date Diagnosis [facility] [place] [id number] [place] [address] 17290- 6977 Nov, [facility] [place] [address] 17880- 6604 Jun, [facility] [id number] [place] [address] 88854 -8188 Jun, Shortness of breath at rest R06.02 ; COPD exacerbation J44.1 and BMI 45.0-49.9, adult Z68.42 [facility] [place] [id number] [place] [address] 45068- 5774 Jun, [facility] [place] [address] 03340- 6969 Jun, Paranoid schizophrenia F20.0 ; Depression with anxiety F41.8 and BMI 45.0-49.9, adult Z68.42 [facility] [place] [id number] [place] [address] 58298- 1802 Jun, Schizoaffective disorder, depressive type F25.1 [facility] [address] [id number] Jun, Dental caries K02.9 [facility] [place] [id number] [place] [address] 34347- 3162 Jun, Paranoid schizophrenia F20.0 [facility] [place] [id number] [place] [address] 93548- 0667 May, Migraine without aura and without status migrainosus, not intractable G43.009 ; DM neuro manif type II E11.49 and Type 2 diabetes mellitus without complication, without long-term current use of insulin E11.9 [facility] [place] [id number] [place] [address] 49982- 3001 May, Migraine without aura and without status migrainosus, not intractable G43.009 [facility] [place] [id number] [place] [address] 35144- 4633 May, Depression with anxiety F41.8 [facility] [address] [id number] May, [facility] [place] [id number] [place] [address] 26929- 9937 May, [facility] [place] [id number] [place] [address] 54470- 1240 May, [place] [id number] [place] [address] 67539- 5147 May, Hypothyroidism (acquired) E03.9 [place] [id number] [place] [address] 44153- 4841 May, Paranoid schizophrenia F20.0 [place] [id number] [place] [address] 90725- 5521 May, Type 2 diabetes mellitus without complication, [...] N32.81 and Controlled substance agreement signed Z79.899 [place] [id number] [place] [address] 93690- 6158 May, Controlled substance agreement signed Z79.899 [place] [id number] [place] [address] 05940- 0681 Apr, [facility] [id number] [place] [address] [id number] Apr, Dental examination Z01.20 [place] [id number] [place] [address] 26484- 8092 Apr, Paranoid schizophrenia F20.0 [facility] [place] [id number] [place] [address] 33000- 3176 Apr, Hypertension, unspecified type I10 [facility] [place] [id number] [place] [address] 67819- 6651 Apr, Paranoid schizophrenia F20.0 [facility] [place] [id number] [place] [address] 60599- 6445 Apr, [facility] [place] [id number] [place] [address] 49259- 3848 Apr, Tobacco abuse Z72.0 [facility] [place] [id number] [place] [address] 94030- 7459 Apr, [facility] [place] [id number] [place] [address] 96758- 5752 Mar, [facility] [place] [id number] [place] [address] 14485- 3909 Mar, Paranoid schizophrenia F20.0 and BMI 45.0-49.9, adult Z68.42 [facility] [place] [id number] [place] [address] 75613- 3105 Mar, Schizoaffective disorder, depressive type F25.1 [facility] [place] [id number] [place] [address] 49635- 7698 Mar, [facility] [place] [id number] [place] [address] 79161- 0263 Mar, Hypothyroidism, unspecified type E03.9 [facility] [place] [id number] [place] [address] 37739- 4420 Mar, Schizoaffective disorder, depressive type F25.1 [facility] [id number] [place] [address] 49175 -9996 Feb, Gastroenteritis K52.9 and BMI 45.0-49.9, adult Z68.42 [place] [id number] [place] [address] 92484- 9841 Feb, [place] [address] 90406- 0064 Feb, [place] [id number] [place] [address] 73909- 6126 Feb, [address] 81804- 2275 Feb, [address] 49459- 6616 Feb, Paranoid schizophrenia F20.[address] 51914- 6193 Feb, Gastroesophageal reflux disease without esophagitis K21.9 ; Other seasonal allergic rhinitis J30.2 ; Other allergic rhinitis J30.89 ; Tobacco abuse Z72.0 and BMI 40.0-44.9, adult Z68.41 [place] [id number] [place] [address] 65211- 8281 Feb, Onychomycosis B35.1 ; Callus of foot L84 and DM neuro manif type II E11.49 [place] [id number] [place] [address] 94556- 7386 Jan, Chronic allergic rhinitis J30.9 [place] [id number] [place] [address] 20066- 7144 Jan, [address] 77623- 2075 Jan, Schizoaffective disorder, depressive type F25.[address] 28987- 4700 Jan, [facility] [address] [place] [id number] [place] [address] 18896 -7602 07 Jan, 2017 Sore throat J02.9 and Seasonal allergic rhinitis due to other allergic trigger J30.89 [facility] [place] [address] [place] [address] 86889- 9716 04 Jan, 2017 [facility] [place] [id number] [place] [address] 89603- 9987 Jan, [facility] [id number] [place] [address] 63856 -5339 Jan, Chronic allergic rhinitis J30.9 [facility] [place] [id number] [place] [address] 65071- 6814 Dec, Paranoid schizophrenia F20.0 ; Primary insomnia F51.01 and Schizoaffective disorder, depressive type F25.1 [place] [id number] [place] [address] 67379- 2002 21 Dec, 2016 Chronic pain syndrome G89.4 ; Cervicalgia of occipito- atlanto-axial region M54.2 ; Menopausal syndrome (hot flashes) N95.1 and Encounter for immunization Z23 [facility] [place] [id number] [place] [address] 42795- 7155 14 Dec, 2016 [place] [id number] [place] [address] 77917- 6793 13 Dec, 2016 [place] [id number] [place] [address] 03883- 3326 08 Dec, 2016 Paranoid schizophrenia F20.0 [facility] [place] [id number] [place] [address] 14387- 4722 Dec, Schizoaffective disorder, depressive type F25.1 [facility] [place] [id number] [place] [address] 75625- 5675 Nov, Hypothyroidism, unspecified type E03.9 [facility] [id number] [place] [address] 34414 -8862 Nov, Acute seasonal allergic rhinitis due to other allergen J30.89 [facility] [place] [id number] [place] [address] 19992- 8494 Nov, [place] [id number] [place] [address] 09074- 7133 Nov, Hypothyroidism, unspecified type E03.9 and Other elevated white blood cell (WBC) count D72.828 [place] [id number] [place] [address] 95564- 6436 Nov, Schizoaffective disorder, depressive type F25.1 [place] [id number] [place] [address] 91607- 6190 Nov, Paranoid schizophrenia F20.0 [place] [id number] [place] [address] 66460- 3179 Nov, Type 2 diabetes mellitus without complication, without long- term current use of insulin E11.9 ; Morbid obesity due to excess calories E66.01 and Chronic pain syndrome G89.4 [place] [id number] [place] [address] 32612- 9305 Oct, Paranoid schizophrenia F20.0 [place] [id number] [place] [address] 14987- 5591 Oct, [place] [id number] [place] [address] 01297- 7062 Oct, Schizoaffective disorder, depressive type F25.1 [place] [id number] [place] [address] 16156- 7487 Oct, Hypothyroidism, unspecified type E03.9 and Other elevated white blood cell (WBC) count D72.828 [place] [address] [place] [address] 19641- 1472 Oct, Morbid obesity due to excess calories E66.01 ; Chronic obstructive pulmonary disease, unspecified COPD type J44.9 ; History of lupus Z87.39 ; Hypothyroidism, unspecified type E03.9 ; Gastroesophageal reflux disease without esophagitis K21.9 ; Primary insomnia F51.01 and Chronic pain syndrome G89.4 [place] [id number] [place] [address] 90969- 9502 Sep, [facility] [place] [address] [address]- 3405 Sep, [facility] [place] [id number] [place] [address] 39879- 3055 Sep, [facility] [place] [id number] [place] [address] 61635- 7201 Sep, Paranoid schizophrenia F20.0 [facility] [place] [id number] [place] [address] 06182- 0864 Sep, [facility] [place] [id number] [place] [address] 12935- 7359 Sep, Paranoid schizophrenia F20.0 [facility] [place] [id number] [place] [address] 38924- 3107 Sep, [facility] [place] [id number] [place] [address] 36199- 4485 August, Paranoid schizophrenia F20.0 [facility] [place] [address] [place] [address] 87525- 7708 Jul, [facility] [place] [id number] [place] [address] 70545- 0571 Jul, Type 2 diabetes mellitus without complication, without long- term current use of insulin E11.9 ; Morbid obesity due to excess calories E66.01 ; Depression with anxiety F41.8 ; Hypothyroidism, unspecified type E03.9 ; Seasonal allergic rhinitis due to other allergic trigger J30.89 ; Pain, dental K08.89 and Gastroesophageal reflux disease without esophagitis K21.9 [facility] [id number] [place] [address] [id number] Jul, Dental examination Z01.20 [facility] [place] [id number] [place] [address] 75396- 7957 07 Jul, 2016 Paranoid schizophrenia F20.0 [facility] [place] [id number] [place] [address] 92706- 4274 13 Jun, 2016 Paranoid schizophrenia F20.0 and Depression with anxiety F41.8 [place] [id number] [place] [address] 61185- 4968 10 Jun, 2016 Paranoid schizophrenia F20.0 and Depression with anxiety F41.8 [place] [id number] [place] [address] 68244- 8106 09 Jun, 2016 [place] [address] 23342- 8338 Jun, [facility] [place] [id number] [place] [address] 41881 -6720 Jun, Seasonal allergic rhinitis due to other allergic trigger J30.89 [facility] [place] [id number] [place] [address] 82246 -2075 May, Sore throat J02.9 ; Other viral agents as the cause of diseases classified elsewhere B97.89 and Acute upper respiratory infection, unspecified J06.9 [place] [id number] [place] [address] 09251- 3720 May, Paranoid schizophrenia F20.0 and Depression with anxiety F41.8 [place] [id number] [place] [address] 80430- 9906 Apr, Other seasonal allergic rhinitis J30.2 [place] [id number] [place] [address] 82739- 4898 Apr, Paranoid schizophrenia F20.0 and Depression with anxiety F41.8 [facility] [place] [id number] [place] [address] 78192 -2417 Apr, Bronchitis J40 and Sore throat J02.9 [place] [id number] [place] [address] 34824- 8327 Apr, Type 2 diabetes mellitus without complication, without long- term current use of insulin E11.9 [facility] [place] [id number] [place] [address] 54079 -7392 Apr, Bronchitis J40 [place] [id number] [place] [address] 09978- 5435 Apr, [place] [id number] [place] [address] 10668- 9689 Apr, [place] [id number] [place] [address] 39077- 8168 Mar, Type 2 diabetes mellitus without complication, [...] R60.9 and Other seasonal allergic rhinitis J30.2 [place] [address] 57290- 7210 Mar, Paranoid schizophrenia F20.0 and Depression with anxiety F41.8 [place] [id number] [place] [address] 14253- 2997 Feb, [place] [id number] [place] [address] 27834- 9519 Feb, [place] [id number] [place] [address] 88562- 5260 Feb, [place] [id number] [place] [address] 84836- 4708 Feb, [place] [id number] [place] [address] 67672- 0205 Feb, Type 2 diabetes mellitus without complication, without long- term current use of insulin E11.9 ; ARIAS on CPAP G47.33 and Preoperative evaluation to rule out surgical contraindication Z01.818 [place] [id number] [place] [address] 68334- 5692 Feb, Paranoid schizophrenia F20.0 and Depression with anxiety F41.8 [facility] [place] [address] [facility] [id number] [place] [address]- 5818 Jan, [facility] [place] [address] [facility] [id number] [place] [address], [place] [id number]- [address]371 Jan, Paranoid schizophrenia F20.0 and Depression with anxiety F41.8 [facility] [place] [id number] [place] [address], [place] [address]- 1276 Jan, [facility] [place] [address] [facility] [id number] [place] [address], [place] [address]- 4651 Jan, Muscle strain T14.8 [facility] [place] [address] [facility] [id number] [place] [address], [place] [address]- 4194 Jan, Paranoid schizophrenia F20.0 [facility] [place] [id number] [place] [address], [place] [address]- 9781 Jan, [facility] [place] [id number] [place] [address] 64974- 0439 Jan, Paranoid schizophrenia F20.0 and Depression with anxiety F41.8 [facility] [place] [address] [facility] [id number] [place] [address], [place] [address]- 7078 Jan, [facility] [place] [id number] [address]- 9988 Jan, [facility] [place] [id number] [place] [address] 06274- 9870 28 Dec, 2015 [facility] [place] [address] [facility] [id number] [address]- 0511 23 Dec, 2015 Paranoid schizophrenia F20.0 [facility] [place] [address] [facility] [id number] [place] [address]- 9382 16 Dec, 2015 Paranoid schizophrenia F20.0 and Depression with anxiety F41.8 [facility] [place] [address] [facility] [id number] [place] [address]- 1848 Nov, [place] [id number] [place] [address] 48221- 2132 Nov, Paranoid schizophrenia F20.0 [place] [id number] [place] [address] 75425- 7145 Nov, Paranoid schizophrenia F20.0 and Depression with anxiety F41.8 [place] [id number] [place] [address] 61250- 3882 Nov, Type 2 diabetes mellitus without complication, without long- term current use of insulin E11.9 ; Paranoid schizophrenia F20.0 ; Chronic obstructive pulmonary disease, unspecified COPD type J44.9 ; Morbid obesity due to excess calories E66.01 and Parkinsonian tremor G20 [place] [id number] [place] [address] 87463- 3566 Nov, [place] [id number] [place] [address] 28809- 3963 Oct, Paranoid schizophrenia F20.0 [place] [id number] [place] [address] 30996- 5303 Oct, Paranoid schizophrenia F20.0 [place] [id number] [place] [address] 20913- 6755 Oct, Paranoid schizophrenia F20.0 and Depression with anxiety F41.8 [place] [id number] [place] [address] 66811- 0938 Oct, [place] [id number] [place] [address] 03799- 3306 Oct, Paranoid schizophrenia F20.0 and Depression with anxiety F41.8 [place] [id number] [place] [address] 35044- 3974 Oct, Nasal sore J34.89 [place] [id number] [place] [address] 36683- 7455 Oct, Type 2 diabetes mellitus without complication, without long- term current use of insulin E11.9 ; Depression with anxiety F41.8 ; Hypothyroidism, unspecified type E03.9 and History of lupus Z87.39 [facility] [place], [facility] [id number] [place] [address] [phone] Oct, [facility] [place], [facility] [id number] [place] [address] [phone] Oct, Type 2 diabetes mellitus without complication, [...] [place], [facility] [id number] [place] [address] [phone] Feb, [facility] [place], [facility] [id number] [place] [address] [phone] Jan, [facility] [place], [facility] [id number] [place] [address] [phone] Jan, [facility] [place], [facility] [id number] [place] [address] [phone] Jan, [facility] [place], [facility] [id number] [place] [address] [phone] Dec, [facility] [place], [facility] [id number] [place] [address] [phone] Nov, [facility] [place], [facility] [id number] [place] [address] [phone] Nov, [facility] [place], [facility] [id number] [place] [address] [phone] Oct, [facility] [place], [facility] [id number] [place] [address] [phone] Oct, [facility] [address] [facility] [id number] [place] [address] Oct, [facility] [address] [facility] [id number] [place] [address] Sep, Allergic rhinitis 477.9 [facility] [address] [facility] [id number] [place] [address] Sep, Rhinitis, allergic 477.9 [facility] [address] [facility] [id number] [place] [address] Sep, Rhinitis, allergic 477.9 [facility] [address] [facility] [id number] [place] [address] Sep, [facility] [address] [facility] [id number] [place] [address] August, [facility] [address] [facility] [id number] [place] [address] August, [facility] [address] [facility] [id number] [place] [address] August, [facility] [address] [facility] [id number] [place] [address] 28 Jul, 2014 [facility] [address] [facility] [id number] [place] [address]- [address] 14 Jul, 2014 [facility] [address] [facility] [id number] [place] [address] 4[address] 13 Jul, 2014 [facility] [address] [id number] [place] [address] 8757 16 Jun, 2014 [facility] [place] [facility] [address] [facility] [id number] [place] [address] 16 Jun, 2014 [facility] [place] [facility] [address] [facility] [id number] [place] [address] Jun, [facility] [place] [facility] [address] [facility] [id number] [place] [address] Jun, [facility] [place] [facility] [address] [id number] [place] [address] 0851 Jun, [facility] [place] [facility] [address] [id number] [place] [address]- 0411 Jun, [facility] [place] [facility] [address] [id number] [place] [address]- 8742 Jun, [facility] [place] [facility] [address] [id number] [place] [address] 7229 Jun, [facility] [place] [facility] [address] [id number] [place] [address]- 4356 May, [facility] [place] [facility] [address] [id number] [place] [address]- 0815 May, [facility] [place] [facility] [address] [id number] [place] [address]- 7319 May, [facility] [place] [facility] [address] [id number] [place] [address]- 1708 May, [facility] [place] [facility] [address] [id number] [place] [address]- 8937 Apr, [facility] [place] [facility] [address] [id number] [place] [address] 9939 Mar, [facility] [place] [facility] [address] [id number] [place] [address]- 6670 Mar, [facility] [place] [facility] [address] [id number] [place] [address]- 3054 Mar, [facility] [place] [facility] [address] [id number] [place] [address]- 4500 Mar, [facility] [place] [facility] [address] [id number] [place] [address]- 2805 Mar, [facility] [place] [facility] [address] [id number] [place] [address] Mar, [facility] [place] [facility] [address] [id number] [place] [address]- 1063 05 Mar, 2014 [facility] [place] [facility] [address] [id number] [place] [address]- 8653 Mar, [facility] [place] [facility] [address] [id number] [place] [address] Mar, [facility] [place] [facility] [address] [id number] [place] [address]- 8475 Feb, [facility] [place] [facility] [address] [id number] [place] [address]- 4182 Feb, [facility] [place] [facility] [address] [id number] [place] [address]- 1872 Feb, [facility] [place] [facility] [address] [id number] [place] [address]- 8721 Feb, [facility] [place] [facility] [address] [id number] [place] [address]- 5724 Feb, [facility] [place] [facility] [address] [id number] [place] [address]- 7305 Feb, [facility] [place] [facility] [address] [id number] [place] [address]- 7620 Feb, [facility] [place] [facility] [address] [id number] [place] [address]- 5431 Feb, [facility] [place] [facility] [address] [id number] [place] [address]- 3166 Jan, [facility] [place] [facility] [address] [id number] [place] [address]- 2798 23 Jan, 2014 [facility] [place] [facility] [address] [id number] [place] [address]- 0279 16 Jan, 2014 [facility] [place] [facility] [address] [id number] [place] [address]- 8845 16 Jan, 2014 [facility] [place] [facility] [address] [id number] [place] [address]- 8869 15 Jan, 2014 [facility] [place] [facility] [address] [id number] [place] [address]- 0595 15 Jan, 2014 [facility] [place] [facility] [address] [id number] [place] [address]- 1371 14 Jan, 2014 [facility] [place] [facility] [address] [id number] [place] [address]- 7474 14 Jan, 2014 [facility] [place] [facility] [address] [id number] [place] [address]- 8946 14 Jan, 2014 [facility] [place] [facility] [address] [id number] [place] [address]- 0582 14 Jan, 2014 [facility] [place] [facility] [address] [id number] [place] [address]- 5728 18 Dec, 2013 [facility] [place] [facility] [address] [id number] [place] [address]- 2972 18 Dec, 2013 [facility] [place] [facility] [address] [id number] [place] [address]- 1896 10 Dec, 2013 [facility] [place] [facility] [address] [id number] [place] [address]- 1441 10 Dec, 2013 [facility] [place] [facility] [address] [id number] [place] [address]- 9222 Nov, [facility] [place] [facility] [address] [id number] [place] [address]- 5733 Nov, [facility] [place] [facility] [address] [id number] [place] [address]- 8090 Nov, [facility] [place] [facility] [address] [id number] [place] [address]- 6935 Nov, [facility] [place] [facility] [address] [id number] [place] [address]- 4361 Nov, [facility] [place] [facility] [address] [id number] [place] [address]- 9948 Oct, [facility] [place] [facility] [address] [id number] [place] [address]- 2574 Oct, [facility] [place] [facility] [address] [id number] [place] [address]- 7268 Oct, [facility] [place] [facility] [address] [id number] [place] [address] Oct, [facility] [place] [facility] [address] [id number] [place] [address]- 4273 Sep, [facility] [place] [facility] [address] [id number] [place] [address]- 0456 Sep, [facility] [place] [facility] [address] [id number] [place] [address]- 4123 Sep, [facility] [place] [facility] [address] [id number] [place] [address]- 5275 Sep, [facility] [place] [facility] [address] [id number] [place] [address]- 0103 Sep, [facility] [place] [facility] [address] [id number] [place] [address]- 1257 Sep, [facility] [place] [facility] [address] [id number] [place] [address]- 6839 Sep, [facility] [place] [facility] [address] [id number] [place] [address]- 9618 Sep, [facility] [place] [facility] [address] [id number] [place] [address]- 7154 August, [facility] [place] [facility] [address] [id number] [place] [address]- 7780 August, [facility] [place] [facility] [address] [id number] [place] [address]- 0613 August, [facility] [place] [facility] [address] [id number] [place] [address]- 6281 August, [facility] [place] [facility] [address] [id number] [place] [address]- 8777 August, [facility] [place] [facility] [address] [id number] [place] [address]- 1822 August, [facility] [place] [facility] [address] [id number] [place] [address]- 2623 August, [facility] [place] [facility] [address] [id number] [place] [address]- 8660 Jul, [facility] [place] [facility] [address] [id number] [place] [address]- 9201 Jul, [facility] [place] [facility] [address] [id number] [place] [address]- 0840 Jul, [facility] [place] [facility] [address] [id number] [place] [address]- 9168 Jul, [facility] [place] [facility] [address] [id number] [place] [address]- 6723 Jul, [facility] [place] [facility] [address] [id number] [place] [address]- 9851 Jul, [facility] [place] [facility] [address] [id number] [place] [address]- 8003 Jul, [facility] [place] [facility] [address] [id number] [place] [address]- 4835 Jul, [facility] [place] [facility] [address] [id number] [place] [address]- 3509 Jul, [facility] [place] [facility] [address] [id number] [place] [address]- 0516 Jul, [facility] [place] [facility] [address] [id number] [place] [address]- 7509 Jul, [facility] [place] [facility] [address] [id number] [place] [address]- 9845 Jul, [facility] [place] [facility] [address] [id number] [place] [address]- 1297 Jun, [facility] [place] [facility] [address] [id number] [place] [address]- 3115 Jun, [facility] [place] [facility] [address] [id number] [place] [address]- 8281 Jun, [facility] [place] [facility] [address] [id number] [place] [address]- 5410 Jun, [facility] [place] [facility] [address] [id number] [place] [address]- 1225 Jun, [facility] [place] [facility] [address] [id number] [place] [address]- 1164 May, [facility] [place] [facility] [address] [id number] [place] [address]- 8693 May, [facility] [place] [facility] [address] [id number] [place] [address]- 4161 May, [facility] [place] [facility] [address] [id number] [place] [address]- 2821 May, [facility] [place] [facility] [address] [id number] [place] [address]- 7896 May, [facility] [place] [facility] [address] [id number] [place] [address]- 6088 May, [facility] [place] [facility] [address] [id number] [place] [address]- 3621 May, [facility] [place] [facility] [address] [id number] [place] [address]- 4280 May, [facility] [place] [facility] [address] [id number] [place] [address]- 6761 Mar, [facility] [place] [facility] [address] [id number] [place] [address]- 9520 Mar, [facility] [place] [facility] [address] [id number] [place] [address] Mar, [facility] [place] [facility] [address] [facility] [id number] [place] [address] Mar, [facility] [place] [facility] [address] [id number] [place] [address]- 1976 Mar, [facility] [place] [facility] [address] [id number] [place] [address]- 7595 Mar, [facility] [place] [facility] [address] [id number] [place] [address]- 3385 Feb, [facility] [place] [facility] [address] [id number] [place] [address]- 9376 Feb, [facility] [place] [facility] [address] [id number] [place] [address]- 4428 Jan, [facility] [place] [facility] [address] [id number] [place] [address]- 5145 Jan, [facility] [place] [facility] [address] [id number] [place] [address]- 3137 Jan, [facility] [place] [facility] [address] [id number] [place] [address]- 3030 Jan, [facility] [place] [facility] [address] [id number] [place] [address]- 7953 Jan, [facility] [place] [facility] [address] [id number] [place] [address]- 0541 Jan, [facility] [place] [facility] [address] [id number] [place] [address]- 5630 Jan, [facility] [place] [facility] [address] [id number] [place] [address]- 0619 Jan, [facility] [place] [facility] [address] [id number] [place] [address]- 6424 Jan, [facility] [place] [facility] [address] [id number] [place] [address]- 7651 Jan, [facility] [place] [facility] [address] [id number] [place] [address]- 2546 16 Dec, 2012 [facility] [place] [facility] [address] [id number] [place] [address]- 3307 Nov, [facility] [place] [address] [id number] [place] [address]- 7953 Nov, [facility] [place] [address] [id number] [place] [address]- 9249 Nov, [facility] [place] [address] [id number] [place] [address] Oct, [facility] [place] [address] [id number] [place] [address]- 1104 Oct, [facility] [place] [address] [id number] [place] [address]- 7006 August, [facility] [place] [address] [id number] [place] [address]- 8527 Apr, [facility] [place] [address] [facility] [id number] [place] [address]- 0386 Apr, [facility] [place] [address] [facility] [id number], [place] [address]- 9715 Feb, [facility] [place] [address] [id number], [place] [address]- 8268 Feb, [facility] [place] [address] [facility] [id number], [place] [address]- 1524 Dec, [facility] [place] [address] [facility] [id number], [place] [address] 1988 Dec, [facility] [place] [address] [id number], [place] [address]- 7569 Oct, [facility] [place] [address] [facility] [id number], [place] [address]- 6245 Oct, [facility] [place] [address] [facility] [id number], [place] [address]- 2277 Oct, [facility] [place] [address] [facility] [id number], [place] [address]- 6736 Jul, IMMUNIZATIONS No Known Immunizations SOCIAL HISTORY Never Assessed REASON FOR VISIT Refill request PLAN OF CARE VITAL SIGNS MEDICATIONS Medication Instructions Dosage Frequency Start Date End Date Duration Status Norvasc 10 mg Orally Once a day 1 tablet 24h 30 Active RESULTS No Results PROCEDURES No Known [...]
--- OUTSIDE RECORDS SUMMARY | 2018-09-02 14:40 | XMS REPORT | Continuity of Care Document ---
Demographics Preferred Language Unknown Marital Status Unknown Worship Affiliation Unknown Race Unknown Ethnic Group Unknown Author Organization Unknown Address Unknown Allergies Active Description Code Type Severity Reaction Onset Reported/Identified Relationship to Patient Clinical Status Yes PENICILLIN G BENZATHINE MILD OTHER Yes Penicillins Drug Allergy N/A N/A 08/14/2011 Yes Sulfa(Sulfonamide Antibiotics) Drug Allergy N/A N/A 08/14/2011 Yes Penicillins Drug Allergy 08/14/2011 Yes Sulfa(Sulfonamide Antibiotics) Drug Allergy 08/14/2011 Yes Penicillins [id number] Drug Allergy Unknown RASH 12/01/2013 Yes Sulfa (Sulfonamide Antibiotics) [id number] Drug Allergy Unknown RASH 2013 Medications Medication Packaging Start Date Stop Date Route Dosage Sig NORMAL SALINE 1000CC IV BAG INJ 0.9 % (NS 1000CC IV BAG) ml 09/01/2018 09/16/2018 CONTINUOUSEVERY 0 Hour CEFAZOLIN VIAL INJ 1 GM (ANCEF) GM 09/01/2018 09/01/2018 [id number] Problems Date Dx Coded Attending Type Code Diagnosis Diagnosed By 08/14/2011 715.90 OSTEOARTHROSIS UNSPECIFIED WHETHER GENERALIZED OR LOCALIZED INVOLVING UNSPECIFIED SITE 08/14/2011 715.90 OSTEOARTHROSIS UNSPECIFIED WHETHER GENERALIZED OR LOCALIZED INVOLVING UNSPECIFIED SITE 08/14/2011 715.90 OSTEOARTHROSIS UNSPECIFIED WHETHER GENERALIZED OR LOCALIZED INVOLVING UNSPECIFIED SITE 08/14/2011 RADHA ROJAS MD 715.90 OSTEOARTHROSIS UNSPECIFIED WHETHER GENERALIZED OR LOCALIZED INVOLVING UNSPECIFIED SITE 08/14/2011 RADHA ROJAS MD 715.90 OSTEOARTHROSIS UNSPECIFIED WHETHER GENERALIZED OR LOCALIZED INVOLVING UNSPECIFIED SITE 08/14/2011 RODO MOREIRA APRN 715.90 OSTEOARTHROSIS UNSPECIFIED WHETHER GENERALIZED OR LOCALIZED INVOLVING UNSPECIFIED SITE 08/14/2011 RADHA ROJAS MD 715.90 OSTEOARTHROSIS UNSPECIFIED WHETHER GENERALIZED OR LOCALIZED INVOLVING UNSPECIFIED SITE 08/14/2011 RODO MOREIRA APRN 715.90 OSTEOARTHROSIS UNSPECIFIED WHETHER GENERALIZED OR LOCALIZED INVOLVING UNSPECIFIED SITE 08/14/2011 RADHA ROJAS MD 715.90 OSTEOARTHROSIS UNSPECIFIED WHETHER GENERALIZED OR LOCALIZED INVOLVING UNSPECIFIED SITE 08/14/2011 RADHA ROJAS MD 715.90 OSTEOARTHROSIS UNSPECIFIED WHETHER GENERALIZED OR LOCALIZED INVOLVING UNSPECIFIED SITE 08/14/2011 ELVER ARROYO APRN 715.90 OSTEOARTHROSIS UNSPECIFIED WHETHER GENERALIZED OR LOCALIZED INVOLVING UNSPECIFIED SITE 08/14/2011 715.90 OSTEOARTHROSIS UNSPECIFIED WHETHER GENERALIZED OR LOCALIZED INVOLVING UNSPECIFIED SITE 11/16/2011 695.4 LUPUS ERYTHEMATOSUS 11/16/2011 695.4 LUPUS ERYTHEMATOSUS 11/16/2011 695.4 LUPUS ERYTHEMATOSUS 11/16/2011 BOB SIEGEL, RADHA 695.4 LUPUS ERYTHEMATOSUS 11/16/2011 BOB SIEGEL, RADHA 695.4 LUPUS ERYTHEMATOSUS 11/16/2011 RODO MOREIRA APRN 695.4 LUPUS ERYTHEMATOSUS 11/16/2011 BOB SIEGEL, RADHA 695.4 LUPUS ERYTHEMATOSUS 11/16/2011 RODO MOREIRA APRN 695.4 LUPUS ERYTHEMATOSUS 11/16/2011 BOB SIEGEL, RADHA 695.4 LUPUS ERYTHEMATOSUS 11/16/2011 RADHA ROJAS MD 695.4 LUPUS ERYTHEMATOSUS 11/16/2011 ELVER ARROYO APRN 695.4 LUPUS ERYTHEMATOSUS 11/16/2011 695.4 LUPUS ERYTHEMATOSUS 11/15/2012 401.1 HYPERTENSION, BENIGN ESSENTIAL 11/15/2012 RADHA ROJAS MD 401.1 HYPERTENSION, BENIGN ESSENTIAL 11/15/2012 RADHA ROJAS MD 401.1 HYPERTENSION, BENIGN ESSENTIAL 11/15/2012 RODO MOREIRA APRN 401.1 HYPERTENSION, BENIGN ESSENTIAL 11/15/2012 RADHA ROJAS MD 401.1 HYPERTENSION, BENIGN ESSENTIAL 11/15/2012 RODO MOREIRA APRN 401.1 HYPERTENSION, BENIGN ESSENTIAL 11/15/2012 RADHA ROJAS MD 401.1 HYPERTENSION, BENIGN ESSENTIAL 11/15/2012 RADHA ROJAS MD 401.1 HYPERTENSION, BENIGN ESSENTIAL 11/15/2012 ELVER ARROYO APRN 401.1 HYPERTENSION, BENIGN ESSENTIAL 12/06/2012 244.9 UNSPECIFIED ACQUIRED HYPOTHYROIDISM 12/06/2012 272.4 OTHER AND UNSPECIFIED HYPERLIPIDEMIA 12/06/2012 RADHA ROJAS MD 244.9 UNSPECIFIED ACQUIRED HYPOTHYROIDISM 12/06/2012 RADHA ROJAS MD 272.4 OTHER AND UNSPECIFIED HYPERLIPIDEMIA 12/06/2012 RADHA ROJAS MD 244.9 UNSPECIFIED ACQUIRED HYPOTHYROIDISM 12/06/2012 RADHA ROJAS MD 272.4 OTHER AND UNSPECIFIED HYPERLIPIDEMIA 12/06/2012 RODO MOREIRA APRN A 244.9 UNSPECIFIED ACQUIRED HYPOTHYROIDISM 12/06/2012 RODO MOREIRA APRN A 272.4 OTHER AND UNSPECIFIED HYPERLIPIDEMIA 12/06/2012 RADHA ROJAS MD 244.9 UNSPECIFIED ACQUIRED HYPOTHYROIDISM 12/06/2012 RADHA ROJAS MD 272.4 OTHER AND UNSPECIFIED HYPERLIPIDEMIA 12/06/2012 RODO MOREIRA APRN A 244.9 UNSPECIFIED ACQUIRED HYPOTHYROIDISM 12/06/2012 RODO MOREIRA APRN A 272.4 OTHER AND UNSPECIFIED HYPERLIPIDEMIA 12/06/2012 RADHA ROJAS MD 244.9 UNSPECIFIED ACQUIRED HYPOTHYROIDISM 12/06/2012 RADHA ROJAS MD 272.4 OTHER AND UNSPECIFIED HYPERLIPIDEMIA 12/06/2012 RADHA ROJAS MD 244.9 UNSPECIFIED ACQUIRED HYPOTHYROIDISM 12/06/2012 RADHA ROJAS MD 272.4 OTHER AND UNSPECIFIED HYPERLIPIDEMIA 12/06/2012 ELVER ARROYO APRN 244.9 UNSPECIFIED ACQUIRED HYPOTHYROIDISM 12/06/2012 ELVER ARROYO APRN 272.4 OTHER AND UNSPECIFIED HYPERLIPIDEMIA 01/09/2013 RADHA ROJAS MD 790.29 OTHER ABNORMAL GLUCOSE 01/09/2013 RADHA ROJAS MD 790.29 OTHER ABNORMAL GLUCOSE 01/09/2013 RODO MOREIRA APRN A 790.29 OTHER ABNORMAL GLUCOSE 01/09/2013 RADHA ROJAS MD 790.29 OTHER ABNORMAL GLUCOSE 01/09/2013 RODO MOREIRA APRN A 790.29 OTHER ABNORMAL GLUCOSE 01/09/2013 RADHA ROJSA MD 790.29 OTHER ABNORMAL GLUCOSE 01/09/2013 RADHA ROJAS MD 790.29 OTHER ABNORMAL GLUCOSE 01/09/2013 ELVER ARROYO APRN 790.29 OTHER ABNORMAL GLUCOSE 07/26/2013 RODO MOREIRA APRN A 625.0 DYSPAREUNIA 07/26/2013 RODO MOREIRA APRN A 627.3 POSTMENOPAUSAL ATROPHIC VAGINITIS 07/26/2013 RADHA ROJAS MD 625.0 DYSPAREUNIA 07/26/2013 RADHA ROJAS MD 627.3 POSTMENOPAUSAL ATROPHIC VAGINITIS 07/26/2013 RODO MOREIRA APRN 625.0 DYSPAREUNIA 07/26/2013 RODO MOREIRA APRN 627.3 POSTMENOPAUSAL ATROPHIC VAGINITIS 07/26/2013 RADHA ROJAS MD 625.0 DYSPAREUNIA 07/26/2013 RADHA ROJAS MD 627.3 POSTMENOPAUSAL ATROPHIC VAGINITIS 07/26/2013 RADHA ROJAS MD 625.0 DYSPAREUNIA 07/26/2013 RADHA ROJAS MD 627.3 POSTMENOPAUSAL ATROPHIC VAGINITIS 07/26/2013 ELVER ARROYO APRN 625.0 DYSPAREUNIA 07/26/2013 ELVER ARROYO APRN 627.3 POSTMENOPAUSAL ATROPHIC VAGINITIS 12/07/2013 MARSHA SIEGEL, ANUSHKA Ribera Ot 244.9 HYPOTHYROIDISM NOS 12/07/2013 ANUSHKA LARSON MD Ot 295.90 SCHIZOPHRENIA NOS-UNSPEC 12/07/2013 ANUSHKA LARSON MD Ot 493.20 CHRONIC OBSTRUCTIVE ASTHMA, NOS 12/07/2013 MARSHA SIEGEL, ANUSHKA Ribera Ot 596.51 HYPERTONICITY OF BLADDER 12/07/2013 MARSHA SIEGEL, ANUSHKA Ribera Ot 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 12/07/2013 MARSHA SIGEEL, ANUSHKA Ribera Ot 788.30 UNSPECIFIED URINARY INCONTINENCE 12/07/2013 MARSHA SIEGEL, ANUSHKA Ribera Ot 790.29 OTHER ABNORMAL GLUCOSE 12/11/2013 RADHA ROJAS MD 496 CHRONIC AIRWAY OBSTRUCTION NOT ELSEWHERE CLASSIFIED 12/11/2013 RODO MOREIRA APRN 496 CHRONIC AIRWAY OBSTRUCTION NOT ELSEWHERE CLASSIFIED 12/11/2013 RADHA ROJAS MD 496 CHRONIC AIRWAY OBSTRUCTION NOT ELSEWHERE CLASSIFIED 12/11/2013 RADHA ROJAS MD CHRONIC AIRWAY OBSTRUCTION NOT ELSEWHERE CLASSIFIED 12/11/2013 ELVER ARROYO APRN 49[place]mar CHRONIC AIRWAY OBSTRUCTION NOT ELSEWHERE CLASSIFIED 02/07/2014 RODO MOREIRA APRN V72.31 BUSINESS EDUCATION PROFESSOR EXAM, ROUTINE 02/07/2014 RODO MOERIRA APRN V76.10 BREAST CANCER SCREENING 02/07/2014 RADHA ROJAS MD V72.31 BUSINESS EDUCATION PROFESSOR EXAM, ROUTINE 02/07/2014 RADHA ROJAS MD V76.10 BREAST CANCER SCREENING 02/07/2014 RADHA ROJAS MD2.31 BUSINESS EDUCATION PROFESSOR EXAM, ROUTINE 02/07/2014 RADHA ROJAS MD V76.10 BREAST CANCER SCREENING 02/07/2014 ELVER ARROYO APRN V72.31 BUSINESS EDUCATION PROFESSOR EXAM, ROUTINE 02/07/2014 ELVER ARROYO APRN V76.10 BREAST CANCER SCREENING 03/12/2014 RADHA ROJAS MD 250.00 DIABETES MELLITUS WITHOUT MENTION OF COMPLICATION TYPE II OR UNSPECIFIED TYPE NOT STATED UNCONTROLLED 03/12/2014 RADHA ROJAS MD 250.00 DIABETES MELLITUS WITHOUT MENTION OF COMPLICATION TYPE II OR UNSPECIFIED TYPE NOT STATED UNCONTROLLED 03/12/2014 ELVER ARROYO APRN 250.00 DIABETES MELLITUS WITHOUT MENTION OF COMPLICATION TYPE II OR UNSPECIFIED TYPE NOT STATED UNCONTROLLED 06/25/2014 ELVER ARROYO APRN 327.23 SLEEP APNEA 06/25/2014 ELVER ARROYO APRN 723.1 PAIN NECK 06/25/2014 ELVER ARROYO APRN 724.2 BACK PAIN, LOWER 07/09/2014 ELVER ARROYO APRN 333.1 ESSENTIAL AND OTHER SPECIFIED FORMS OF TREMOR 07/21/2014 ELVER ARROYO GROUNDHAND Ot 327.23 OBSTRUCTIVE SLEEP APNEA (ADULT) (PEDIATR 01/03/2015 ANN-MARIE DIMAS MD Ot 237.3 01/03/2015 RITO SIEGEL, JAMIL S Ot 784.2 01/09/2015 RITO SIEGEL, JAMIL S Ot 784.2 01/15/2015 ANN-MARIE DIMAS MD Ot 237.3 01/15/2015 ANN-MARIE DIMAS MD Ot 401.9 01/15/2015 ANN-MARIE DIMAS MD Ot 786.09 01/15/2015 ANN-MARIE DIMAS MD Ot 786.59 01/18/2015 ANN-MARIE DIMAS MD Ot 401.9 01/18/2015 ANN-MARIE DIMAS MD Ot 786.09 01/18/2015 ANN-MARIE DIMAS MD Ot 786.59 02/19/2015 ANN-MARIE DIMAS MD Ot E66.9 02/19/2015 ANN-MARIE DIMAS MD Ot I10 02/19/2015 ANN-MARIE DIMAS MD Ot R06.00 02/19/2015 ANN-MARIE DIMAS MD Ot R07.9 02/19/2015 ANN-MARIE DIMAS MD Ot Z68.41 03/18/2015 JUDIE SIEGEL, ANN-MARIE Gonzalez Ot E66.9 03/18/2015 JUDIE SIEGEL, ANN-MARIE Gonzalez Ot I10 03/18/2015 JUDIE SIEGEL, ANN-MARIE Gonzalez Ot R06.00 03/18/2015 JUDIE SIEGEL, ANN-MARIE Gonzalez Ot R07.9 03/18/2015 JUDIE SIEGEL, ANN-MARIE Gonzalez Ot Z68.41 03/29/2015 JUDIE SIEGEL, ANN-MARIE Gonzalez Ot E66.9 03/29/2015 JUDIE SIEGEL, ANN-MARIE Gonzalez Ot I10 03/29/2015 JUDIE SIEGEL, ANN-MARIE Gonzalez Ot R06.00 03/29/2015 JUDIE SIEGEL, ANN-MARIE Gonzalez Ot R07.9 03/29/2015 JUDIE SIEGEL, ANN-MARIE Gonzalez Ot Z68.41 06/13/2015 Ot 789.01 06/13/2015 MARSHA SIEGEL, ANUSHKA Ribera Ot 596.51 06/13/2015 MARSHA SIEGEL, ANUSHKA Ribera Ot 599.82 06/13/2015 MARSHA SIEGEL, ANUSHKA Ribera Ot 788.30 06/13/2015 MARSHA SIEGEL, ANUSHKA A Ot V72.63 06/13/2015 MARSHA SIEGEL, ANUSHKA A Ot V74.8 06/13/2015 JUDIE SIEGEL, ANN-MARIE Gonzalez Ot 401.9 06/13/2015 JUDIE SIEGEL, ANN-MARIE Gonzalez Ot 786.09 06/13/2015 JUDIE SIEGEL, ANN-MARIE Gonzlaez Ot 786.59 06/13/2015 JUDIE SIEGEL, ANN-MARIE Gonzalez Ot E66.9 06/13/2015 JUDIE SIEGEL, ANN-MARIE Gonzalez Ot I10 06/13/2015 JUDIE SIEGEL, ANN-MARIE Gonzalez Ot R06.00 06/13/2015 JUDIE SIEGEL, ANN-MARIE Gonzalez Ot R07.9 06/13/2015 JUDIE SIEGEL, ANN-MARIE Gonzalez Ot Z68.41 06/13/2015 JUDIE SIEGEL, ANN-MARIE Gonzalez Ot 237.3 06/13/2015 RITO SIEGEL, JAMIL Keita Ot 784.2 07/04/2015 FREDA AYALA DO Ot R10.11 07/10/2015 FREDA AYALA DO Ot R10.11 11/01/2015 CESAR SIEGEL, JAYDA Oro Ot R11.2 NAUSEA WITH VOMITING, UNSPECIFIED 11/01/2015 CESAR SIEGEL, JAYDA Oro Ot R13.10 DYSPHAGIA, UNSPECIFIED 11/01/2015 CESAR SIEGEL, JAYDA Oro Ot R19.7 DIARRHEA, UNSPECIFIED 11/01/2015 CESAR SIEGEL, JAYDA Oro Ot Z01.818 ENCOUNTER FOR OTHER PREPROCEDURAL EXAMIN 11/04/2015 CESAR SIEGEL, JAYDA Oro Ot K29.70 GASTRITIS, UNSPECIFIED, WITHOUT BLEEDING 11/04/2015 CESAR SIEGEL, JAYDA Oro Ot R13.10 DYSPHAGIA, UNSPECIFIED 11/04/2015 CESAR SIEGEL, JAYDA Oro Ot R19.7 DIARRHEA, UNSPECIFIED 11/04/2015 CESAR SIEGEL, JAYDA Oro Ot Z80.0 FAMILY HISTORY OF MALIGNANT NEOPLASM OF 12/12/2015 CESAR SIEGEL, JAYDA Oro Ot K29.70 GASTRITIS, UNSPECIFIED, WITHOUT BLEEDING 12/12/2015 CESAR SIEGEL, JAYDA Oro Ot R13.10 DYSPHAGIA, UNSPECIFIED 12/12/2015 CESAR SIEGEL, JAYDA Oro Ot R19.7 DIARRHEA, UNSPECIFIED 12/12/2015 CESAR SIEGEL, JAYDA Oro Ot Z80.0 FAMILY HISTORY OF MALIGNANT NEOPLASM OF 04/24/2016 Ot 789.01 ABDOMINAL PAIN, RIGHT UPPER QUADRANT 04/24/2016 MARSHA SIEGEL, ANUSHKA Ribera Ot 596.51 HYPERTONICITY OF BLADDER 04/24/2016 MARSHA SIEGEL, ANUSHKA Ribera Ot 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 04/24/2016 ANUSHKA LARSON MD Ot 788.30 UNSPECIFIED URINARY INCONTINENCE 04/24/2016 ANUSHKA LARSON MD Ot V72.63 PRE-PROCEDURAL LABORATORY EXAMINATION 04/24/2016 MARSHA SIEGEL, ANUSHKA Ribera Ot V74.8 SCREEN-BACTERIAL DIS NEC 04/24/2016 ANN-MARIE DIMAS MD Ot 401.9 HYPERTENSION NOS 04/24/2016 ANN-MARIE DIMAS MD Ot 786.09 RESPIRATORY ABNORM NEC 04/24/2016 ANN-MARIE DIMAS MD Ot 786.59 CHEST PAIN NEC 04/24/2016 ANN-MARIE DIMAS MD Ot E66.9 OBESITY, UNSPECIFIED 04/24/2016 ANN-MARIE DIMAS MD Ot I10 ESSENTIAL (PRIMARY) HYPERTENSION 04/24/2016 ANN-MARIE DIMAS MD Ot R06.00 DYSPNEA, UNSPECIFIED 04/24/2016 ANN-MARIE DIMAS MD Ot R07.9 CHEST PAIN, UNSPECIFIED 04/24/2016 ANN-MARIE DIMAS MD Ot Z68.41 BODY MASS INDEX (BMI) 40.0-44.9, ADULT 04/24/2016 ANN-MARIE DIMAS MD Ot 237.3 [facility] 04/24/2016 RITO SIEGEL, JAMIL Keita Ot 784.2 SWELLING IN HEAD NECK 04/24/2016 FREDA AYALA DO Ot R10.11 RIGHT UPPER QUADRANT PAIN 04/24/2016 CESAR SIEGEL, JAYDA Oro Ot R11.2 NAUSEA WITH VOMITING, UNSPECIFIED 04/24/2016 CESAR SIEGEL, JAYDA Oro Ot R13.10 DYSPHAGIA, UNSPECIFIED 04/24/2016 CESAR SIEGEL, JAYDA Oro Ot R19.7 DIARRHEA, UNSPECIFIED 04/24/2016 CESAR SIEGEL, JAYDA Oro Ot Z01.818 ENCOUNTER FOR OTHER PREPROCEDURAL EXAMIN 04/28/2016 VINCENZO SIEGEL, JOSE Graf Ot Z01.810 ENCOUNTER FOR PREPROCEDURAL CARDIOVASCUL 05/12/2016 Ot 789.01 ABDOMINAL PAIN, RIGHT UPPER QUADRANT 05/12/2016 MARSHA SIEGEL, ANUSHKA Ribera Ot 596.51 HYPERTONICITY OF BLADDER 05/12/2016 ANUSHKA LARSON MD Ot 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 05/12/2016 ANUSHKA LARSON MD Ot 788.30 UNSPECIFIED URINARY INCONTINENCE 05/12/2016 ANUSHKA LARSON MD Ot V72.63 PRE-PROCEDURAL LABORATORY EXAMINATION 05/12/2016 ANUSHKA LARSON MD Ot V74.8 SCREEN-BACTERIAL DIS NEC 05/12/2016 ANN-MARIE DIMAS MD Ot 401.9 HYPERTENSION NOS 05/12/2016 ANN-MARIE DIMAS MD Ot 786.09 RESPIRATORY ABNORM NEC 05/12/2016 ANN-MARIE DIMAS MD Ot 786.59 CHEST PAIN NEC 05/12/2016 ANN-MARIE DIMAS MD Ot E66.9 OBESITY, UNSPECIFIED 05/12/2016 ANN-MARIE DIMAS MD Ot I10 ESSENTIAL (PRIMARY) HYPERTENSION 05/12/2016 ANN-MARIE DIMAS MD Ot R06.00 DYSPNEA, UNSPECIFIED 05/12/2016 ANN-MARIE DIMAS MD Ot R07.9 CHEST PAIN, UNSPECIFIED 05/12/2016 ANN-MARIE DIMAS MD Ot Z68.41 BODY MASS INDEX (BMI) 40.0-44.9, ADULT 05/12/2016 JUDIE SIEGEL, ANN-MARIE Gonzalez Ot 237.3 [facility] 05/12/2016 RITO SIEGEL, JAMIL Keita Ot 784.2 SWELLING IN HEAD NECK 05/12/2016 JAMIE ORONA KANUGALINDO Ot R10.11 RIGHT UPPER QUADRANT PAIN 05/12/2016 CESAR SIEGEL, JAYDA Oro Ot R11.2 NAUSEA WITH VOMITING, UNSPECIFIED 05/12/2016 CESAR SIEGEL, JAYDA Oro Ot R13.10 DYSPHAGIA, UNSPECIFIED 05/12/2016 CESAR SIEGEL, JAYDA Oro Ot R19.7 DIARRHEA, UNSPECIFIED 05/12/2016 CESAR SIEGEL, JAYDA Oro Ot Z01.818 ENCOUNTER FOR OTHER PREPROCEDURAL EXAMIN 05/12/2016 VINCENZO SIEGEL, JOSE Graf Ot Z01.810 ENCOUNTER FOR PREPROCEDURAL CARDIOVASCUL 05/13/2016 JORDAN ASTUDILLO DO Ot E66.9 OBESITY, UNSPECIFIED 05/13/2016 EFREN ASTUDILLO DOSON M Ot G47.33 OBSTRUCTIVE SLEEP APNEA (ADULT) (PEDIATR 05/13/2016 EFREN ASTUDILLO DOSON M Ot J44.9 CHRONIC OBSTRUCTIVE PULMONARY DISEASE, U 05/13/2016 EFREN ASTUDILLO DOSON M Ot R53.83 OTHER FATIGUE 05/20/2016 EFREN ASTUDILLO DOSON M Ot E66.9 OBESITY, UNSPECIFIED 05/20/2016 EFREN ASTUDILLO DOSON M Ot G47.33 OBSTRUCTIVE SLEEP APNEA (ADULT) (PEDIATR 05/20/2016 JORDAN ASTUDILLO DO Ot J44.9 CHRONIC OBSTRUCTIVE PULMONARY DISEASE, U 05/20/2016 EFREN ASTUDILLO DOSON M Ot R53.83 OTHER FATIGUE 05/22/2016 EFREN ASTUDILLO DOSON M Ot E66.9 OBESITY, UNSPECIFIED 05/22/2016 EFREN ASTUDILLO DOSON M Ot G47.33 OBSTRUCTIVE SLEEP APNEA (ADULT) (PEDIATR 05/22/2016 JORDAN ASTUDILLO DO M Ot J44.9 CHRONIC OBSTRUCTIVE PULMONARY DISEASE, U 05/22/2016 EFREN ASTUDILLO DOSON M Ot R53.83 OTHER FATIGUE 05/28/2016 VINCENZO SIEGEL, JOSE Graf Ot Z01.810 ENCOUNTER FOR PREPROCEDURAL CARDIOVASCUL 05/28/2016 JOSE LOYA MD Ot Z01.810 ENCOUNTER FOR PREPROCEDURAL CARDIOVASCUL 05/31/2016 ANN-MARIE DIMAS MD Ot E66.9 OBESITY, UNSPECIFIED 05/31/2016 ANN-MARIE DIMAS MD Ot G47.33 OBSTRUCTIVE SLEEP APNEA (ADULT) (PEDIATR 05/31/2016 ANN-MARIE DIMAS MD Ot I10 ESSENTIAL (PRIMARY) HYPERTENSION 05/31/2016 ANN-MARIE DIMAS MD Ot R06.09 OTHER FORMS OF DYSPNEA 05/31/2016 ANN-MARIE DIMAS MD Ot R07.89 OTHER CHEST PAIN 06/02/2016 BAUDILIO DO JORDAN M Ot E66.9 OBESITY, UNSPECIFIED 06/02/2016 BAUDILIO DO JORDAN M Ot G47.33 OBSTRUCTIVE SLEEP APNEA (ADULT) (PEDIATR 06/02/2016 BAUDILIO DO JORDAN M Ot J44.9 CHRONIC OBSTRUCTIVE PULMONARY DISEASE, U 06/02/2016 BAUDILIO DO JORDAN M Ot R53.83 OTHER FATIGUE 06/05/2016 BAUDILIO DO JORDAN M Ot E66.9 OBESITY, UNSPECIFIED 06/05/2016 BAUDILIO DO JORDAN M Ot G47.33 OBSTRUCTIVE SLEEP APNEA (ADULT) (PEDIATR 06/05/2016 BAUDILIO DO, JORDAN M Ot J44.9 CHRONIC OBSTRUCTIVE PULMONARY DISEASE, U 06/05/2016 BAUDILIO DO JORDAN M Ot R53.83 OTHER FATIGUE 06/17/2016 VINCENZO SIEGEL, JOSE Graf Ot Z01.810 ENCOUNTER FOR PREPROCEDURAL CARDIOVASCUL 06/17/2016 ANN-MARIE DIMAS MD Ot E66.9 OBESITY, UNSPECIFIED 06/17/2016 ANN-MARIE DIMAS MD Ot G47.33 OBSTRUCTIVE SLEEP APNEA (ADULT) (PEDIATR 06/17/2016 ANN-MARIE DIMAS MD Ot I10 ESSENTIAL (PRIMARY) HYPERTENSION 06/17/2016 ANN-MARIE DIMAS MD Ot R06.09 OTHER FORMS OF DYSPNEA 06/17/2016 ANN-MARIE DIMAS MD Ot R07.89 OTHER CHEST PAIN 06/22/2016 JOSE LOYA MD Ot Z01.810 ENCOUNTER FOR PREPROCEDURAL CARDIOVASCUL 06/22/2016 ANN-MARIE DIMAS MD Ot E66.9 OBESITY, UNSPECIFIED 06/22/2016 ANN-MARIE DIMAS MD, Ot G47.33 OBSTRUCTIVE SLEEP APNEA (ADULT) (PEDIATR 06/22/2016 ANN-MARIE DIMAS MD, Ot I10 ESSENTIAL (PRIMARY) HYPERTENSION 06/22/2016 ANN-MARIE DIMAS MD Ot R06.09 OTHER FORMS OF DYSPNEA 06/22/2016 ANN-MARIE DIMAS MD Ot R07.89 OTHER CHEST PAIN 01/22/2017 Ot 789.01 ABDOMINAL PAIN, RIGHT UPPER QUADRANT 01/22/2017 ANUSHKA LARSON MD Ot 596.51 HYPERTONICITY OF BLADDER 01/22/2017 ANUSHKA LARSON MD Ot 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 01/22/2017 ANUSHKA LARSON MD Ot 788.30 UNSPECIFIED URINARY INCONTINENCE 01/22/2017 ANUSHKA LARSON MD Ot V72.63 PRE-PROCEDURAL LABORATORY EXAMINATION 01/22/2017 ANUSHKA LARSON MD, Ot V74.8 SCREEN-BACTERIAL DIS NEC 01/22/2017 ANN-MARIE DIMAS MD Ot 401.9 HYPERTENSION NOS 01/22/2017 ANN-MARIE DIMAS MD Ot 786.09 RESPIRATORY ABNORM NEC 01/22/2017 ANN-MARIE DIMAS MD Ot 786.59 CHEST PAIN NEC 01/22/2017 ANN-MARIE DIMAS MD Ot E66.9 OBESITY, UNSPECIFIED 01/22/2017 ANN-MARIE DIMAS MD Ot I10 ESSENTIAL (PRIMARY) HYPERTENSION 01/22/2017 ANN-MARIE DIMAS MD Ot R06.00 DYSPNEA, UNSPECIFIED 01/22/2017 ANN-MARIE DIMAS MD Ot R07.9 CHEST PAIN, UNSPECIFIED 01/22/2017 ANN-MARIE DIMAS MD Ot Z68.41 BODY MASS INDEX (BMI) 40.0-44.9, ADULT 01/22/2017 ANN-MARIE DIMAS MD Ot 237.3 [facility] 01/22/2017 RITO SIEGEL, JAMIL Keita Ot 784.2 SWELLING IN HEAD NECK 01/22/2017 FREDA AYALA DO Ot R10.11 RIGHT UPPER QUADRANT PAIN 01/22/2017 CESAR SIEGEL, JAYDA Oro Ot R11.2 NAUSEA WITH VOMITING, UNSPECIFIED 01/22/2017 CESAR SIEGEL, JAYDA Oro Ot R13.10 DYSPHAGIA, UNSPECIFIED 01/22/2017 JAYDA GUERRERO MD Ot R19.7 DIARRHEA, UNSPECIFIED 01/22/2017 CESAR SIEGEL, JAYDA Oro Ot Z01.818 ENCOUNTER FOR OTHER PREPROCEDURAL EXAMIN 01/22/2017 VINCENZO SIEGEL, JOSE Graf Ot Z01.810 ENCOUNTER FOR PREPROCEDURAL CARDIOVASCUL 01/22/2017 JORDAN ASTUDILLO DO Ot E66.9 OBESITY, UNSPECIFIED 01/22/2017 JORDAN ASTUDILLO DO M Ot G47.33 OBSTRUCTIVE SLEEP APNEA (ADULT) (PEDIATR 01/22/2017 EFREN ASTUDILLO DOSON M Ot J44.9 CHRONIC OBSTRUCTIVE PULMONARY DISEASE, U 01/22/2017 JORDAN ASTUDILLO DO M Ot R53.83 OTHER FATIGUE 01/22/2017 JORDAN ASTUDILLO DO M Ot E66.9 OBESITY, UNSPECIFIED 01/22/2017 JORDAN ASTUDILLO DO M Ot G47.33 OBSTRUCTIVE SLEEP APNEA (ADULT) (PEDIATR 01/22/2017 JORDNA ASTUDILLO DO Ot J44.9 CHRONIC OBSTRUCTIVE PULMONARY DISEASE, U 01/22/2017 JORDAN ASTUDILLO DO Ot R53.83 OTHER FATIGUE 01/22/2017 ANN-MARIE DIMAS MD Ot E66.9 OBESITY, UNSPECIFIED 01/22/2017 ANN-MARIE DIMAS MD Ot G47.33 OBSTRUCTIVE SLEEP APNEA (ADULT) (PEDIATR 01/22/2017 ANN-MARIE DIMAS MD Ot I10 ESSENTIAL (PRIMARY) HYPERTENSION 01/22/2017 ANN-MARIE DIMAS MD Ot R06.09 OTHER FORMS OF DYSPNEA 01/22/2017 ANN-MARIE DIMAS MD Ot R07.89 OTHER CHEST PAIN 03/04/2017 MALINDA WEBBER DO Ot 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 OR RADICULOPA 05/21/2017 ANN-MARIE DIMAS MD Ot E13.9 OTHER SPECIFIED DIABETES MELLITUS WITHOU 05/21/2017 ANN-MARIE DIMAS MD Ot G47.33 OBSTRUCTIVE SLEEP APNEA (ADULT) (PEDIATR 05/21/2017 ANN-MARIE DIMAS MD Ot I10 ESSENTIAL (PRIMARY) HYPERTENSION 05/21/2017 ANN-MARIE DIMAS MD Ot R07.89 OTHER CHEST PAIN 05/21/2017 ANN-MARIE DIMAS MD Ot R60.9 EDEMA, UNSPECIFIED 05/21/2017 ANN-MARIE DIMAS MD Ot E13.9 OTHER SPECIFIED DIABETES MELLITUS WITHOU 05/21/2017 ANN-MARIE DIMAS MD Ot G47.33 OBSTRUCTIVE SLEEP APNEA (ADULT) (PEDIATR 05/21/2017 ANN-MARIE DIMAS MD Ot I10 ESSENTIAL (PRIMARY) HYPERTENSION 05/21/2017 ANN-MARIE DIMAS MD Ot R07.89 OTHER CHEST PAIN 05/21/2017 ANN-MARIE DIMAS MD Ot R60.9 EDEMA, UNSPECIFIED 06/11/2017 ANN-MARIE DIMAS MD Ot E13.9 OTHER SPECIFIED DIABETES MELLITUS WITHOU 06/11/2017 ANN-MARIE DIMAS MD Ot G47.33 OBSTRUCTIVE SLEEP APNEA (ADULT) (PEDIATR 06/11/2017 ANN-MARIE DIMAS MD Ot I10 ESSENTIAL (PRIMARY) HYPERTENSION 06/11/2017 ANN-MARIE DIMAS MD Ot R07.89 OTHER CHEST PAIN 06/11/2017 ANN-MARIE DIMAS MD Ot R60.9 EDEMA, UNSPECIFIED 06/28/2017 ANN-MARIE DIMAS MD Ot E13.9 OTHER SPECIFIED DIABETES MELLITUS WITHOU 06/28/2017 ANN-MARIE DIMAS MD Ot G47.33 OBSTRUCTIVE SLEEP APNEA (ADULT) (PEDIATR 06/28/2017 ANN-MARIE DIMAS MD Ot I10 ESSENTIAL (PRIMARY) HYPERTENSION 06/28/2017 ANN-MARIE DIMAS MD Ot R07.89 OTHER CHEST PAIN 06/28/2017 ANN-MARIE DIMAS MD Ot R60.9 EDEMA, UNSPECIFIED 12/24/2017 ANUSHKA LARSON MD Ot 596.51 HYPERTONICITY OF BLADDER 12/24/2017 ANUSHKA LARSON MD Ot 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 12/24/2017 ANUSHKA LARSON MD Ot 788.30 UNSPECIFIED URINARY INCONTINENCE 12/24/2017 ANUSHKA LARSON MD Ot V72.63 PRE-PROCEDURAL LABORATORY EXAMINATION 12/24/2017 ANUSHKA LARSON MD Ot V74.8 SCREEN-BACTERIAL DIS NEC 12/24/2017 ANN-MARIE DIMAS MD Ot 401.9 HYPERTENSION NOS 12/24/2017 ANN-MARIE DIMAS MD Ot 786.09 RESPIRATORY ABNORM NEC 12/24/2017 ANN-MARIE DIMAS MD Ot 786.59 CHEST PAIN NEC 12/24/2017 ANN-MARIE DIMAS MD Ot E66.9 OBESITY, UNSPECIFIED 12/24/2017 JUDIE SIEGEL, ANN-MARIE Gonzalez Ot I10 ESSENTIAL (PRIMARY) HYPERTENSION 12/24/2017 JUDIE SIEGEL, ANN-MARIE Gonzalez Ot R06.00 DYSPNEA, UNSPECIFIED 12/24/2017 ANN-MARIE DIMAS MD Ot R07.9 CHEST PAIN, UNSPECIFIED 12/24/2017 JUDIE SIEGEL, ANN-MARIE Gonzalez Ot Z68.41 BODY MASS INDEX (BMI) 40.0-44.9, ADULT 12/24/2017 ANN-MARIE DIMAS MD Ot 237.3 [facility]ANG 12/24/2017 RITO SIEGEL, JAMIL Keita Ot 784.2 SWELLING IN HEAD NECK 12/24/2017 FREDA AYALA DO Ot R10.11 RIGHT UPPER QUADRANT PAIN 12/24/2017 CESAR SIEGEL, JAYDA Oro Ot R11.2 NAUSEA WITH VOMITING, UNSPECIFIED 12/24/2017 CESAR SIEGEL, JAYDA Oro Ot R13.10 DYSPHAGIA, UNSPECIFIED 12/24/2017 CESAR SIEGEL, JAYDA Oro Ot R19.7 DIARRHEA, UNSPECIFIED 12/24/2017 CESAR SIEGEL, JAYDA Oro Ot Z01.818 ENCOUNTER FOR OTHER PREPROCEDURAL EXAMIN 12/24/2017 VINCENZO SIEGEL, JOSE Graf Ot Z01.810 ENCOUNTER FOR PREPROCEDURAL CARDIOVASCUL 12/24/2017 JORDAN ASTUDILLO DO Ot E66.9 OBESITY, UNSPECIFIED 12/24/2017 JORDAN ASTUDILLO DO Ot G47.33 OBSTRUCTIVE SLEEP APNEA (ADULT) (PEDIATR 12/24/2017 JORDAN ASTUDILLO DO Ot J44.9 CHRONIC OBSTRUCTIVE PULMONARY DISEASE, U 12/24/2017 JORDAN ASTUDILLO DO Ot R53.83 OTHER FATIGUE 12/24/2017 JORDAN ASTUDILLO DO Ot E66.9 OBESITY, UNSPECIFIED 12/24/2017 JORDAN ASTUDILLO DO Ot G47.33 OBSTRUCTIVE SLEEP APNEA (ADULT) (PEDIATR 12/24/2017 JORDAN ASTUDILLO DO Ot J44.9 CHRONIC OBSTRUCTIVE PULMONARY DISEASE, U 12/24/2017 JORDAN ASTUDILLO DO Ot R53.83 OTHER FATIGUE 12/24/2017 ANN-MARIE DIMAS MD Ot E66.9 OBESITY, UNSPECIFIED 12/24/2017 ANN-MARIE DIMAS MD Ot G47.33 OBSTRUCTIVE SLEEP APNEA (ADULT) (PEDIATR 12/24/2017 ANN-MARIE DIMAS MD Ot I10 ESSENTIAL (PRIMARY) HYPERTENSION 12/24/2017 ANN-MARIE DIMAS MD Ot R06.09 OTHER FORMS OF DYSPNEA 12/24/2017 ANN-MARIE DIMAS MD Ot R07.89 OTHER CHEST PAIN 12/24/2017 AKBAR ORONAMALINDA Ot 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 OR RADICULOPA 12/24/2017 ANN-MARIE DIMAS MD Ot E13.9 OTHER SPECIFIED DIABETES MELLITUS WITHOU 12/24/2017 ANN-MARIE DIMAS MD Ot G47.33 OBSTRUCTIVE SLEEP APNEA (ADULT) (PEDIATR 12/24/2017 ANN-MARIE DIMAS MD, Ot I10 ESSENTIAL (PRIMARY) HYPERTENSION 12/24/2017 ANN-MARIE DIMSA MD Ot R07.89 OTHER CHEST PAIN 12/24/2017 ANN-MARIE DIMAS MD Ot R60.9 EDEMA, UNSPECIFIED 12/24/2017 SOTO STRICKLAND CASH REGISTER BALANCER Ot Z12.31 ENCNTR SCREEN MAMMOGRAM FOR MALIGNANT NE 12/27/2017 SOTO [place]ICKLAND R CASH REGISTER BALANCER Ot Z12.31 ENCNTR SCREEN MAMMOGRAM FOR MALIGNANT NE 01/14/2018 SOTO [place]ICK[place] R CASH REGISTER BALANCER Ot Z12.31 ENCNTR SCREEN MAMMOGRAM FOR MALIGNANT NE 01/18/2018 SOTO [place] CASH REGISTER BALANCER Ot Z12.31 ENCNTR SCREEN MAMMOGRAM FOR MALIGNANT NE 05/10/2018 SHERI GIBBONS Ot E78.2 MIXED HYPERLIPIDEMIA 05/10/2018 SHERI GIBBONS Ot G47.33 OBSTRUCTIVE SLEEP APNEA (ADULT) (PEDIATR 05/10/2018 SHERI GIBBONS Ot I10 ESSENTIAL (PRIMARY) HYPERTENSION 05/10/2018 SHERI GIBBONS Ot R07.89 OTHER CHEST PAIN 05/29/2018 SHERI GIBBONS Ot E78.2 MIXED HYPERLIPIDEMIA 05/29/2018 SHERI GIBBONS Ot G47.33 OBSTRUCTIVE SLEEP APNEA (ADULT) (PEDIATR 05/29/2018 SHERI GIBBONS Ot I10 ESSENTIAL (PRIMARY) HYPERTENSION 05/29/2018 SHERI GIBBONS Ot R07.89 OTHER CHEST PAIN 05/30/2018 SHERI GIBBONS Ot E78.2 MIXED HYPERLIPIDEMIA 05/30/2018 SHERI GIBBONS Ot G47.33 OBSTRUCTIVE SLEEP APNEA (ADULT) (PEDIATR 05/30/2018 SHERI GIBBONS Ot I10 ESSENTIAL (PRIMARY) HYPERTENSION 05/30/2018 SHERI GIBBONS Ot R07.89 OTHER CHEST PAIN Procedures Code Description [place] [address] A1C (IN-HOUSE) 01/09/2013 J2550 PHENERGAN INJECTION UP TO 50 MG 01/09/2013 15397 THERAPUTIC INJ SQ/IM 01/09/2013 73435 MAMMOGRAM, SCREENING 02/02/2013 82030 OXIMETRY 12/12/2013 17532 MAMMOGRAM, SCREENING 02/07/2014 56306 ROUTINE VENIPUNCTURE 03/12/2014 46312 A1C (IN-HOUSE) 03/12/2014 6432830 GFR CALC (RESULT ONLY) 03/12/2014 50159 BMP 03/12/2014 Results Test Result Range TSH - 04/06/17 12:19 TSH 36.79 mIU/L 0.40-4.50 CMP - 05/05/17 11:32 GLUCOSE 191 mg/dL 65-99 UREA NITROGEN (BUN) 16 mg/dL 7-25 CREATININE 0.66 mg/dL 0.50-1.05 eGFR NON-AFR. ANDORRAN 99 mL/min/1.73m2 > OR=60 eGFR 114 mL/min/1.73m2 > OR=60 BUN/CREATININE RATIO NOT APPLICABLE (calc) 6-22 SODIUM 137 mmol/L 135-146 POTASSIUM 4.1 mmol/L 3.5-5.3 CHLORIDE 103 mmol/L 98-110 CARBON DIOXIDE 27 mmol/L 20-31 CALCIUM 9.0 mg/dL 8.6-10.4 PROTEIN, TOTAL 6.5 g/dL 6.1-8.1 ALBUMIN 4.1 g/dL 3.6-5.1 GLOBULIN 2.4 g/dL (calc) 1.9-3.7 ALBUMIN/GLOBULIN RATIO 1.7 (calc) 1.0-2.5 BILIRUBIN, TOTAL 0.3 mg/dL 0.2-1.2 ALKALINE PHOSPHATASE 71 U/L 33-130 AST 14 U/L 10-35 ALT 17 U/L 6-29 TSH - 06/03/17 12:16 TSH 1.55 mIU/L 0.40-4.50 THYROID PEROXIDASE ANTIBODIES - 07/22/17 12:16 THYROID PEROXIDASE ANTIBODIES 1 IU/mL <9 THYROID ANALYZER - 09/29/17 15:17 TSH 1.11 mIU/L 0.40-4.50 Comprehensive Metabolic Panel - 08/25/18 10:59 Albumin 4.8 g/dL 3.6-5.1 ALP 76 U/L 35-130 ALT 27 U/L 6-45 Anion Gap 16 6-14 AST 21 U/L 2-40 BUN 18 mg/dL 5-25 Calcium 10.3 mg/dL 8.3-10.4 Chloride 102 mmol/L 95-114 CO2 25 mEq/L 22-33 Creat 0.79 mg/dL 0.50-1.50 eGFR 75 mL/min/1.73m2 >59 Globulin 2.9 g/dL 2.3-3.5 Glucose 105 mg/dL 70-110 Osmo 289 280-295 Potassium 4.3 mmol/L 3.5-5.3 Sodium 139 mmol/L 134-148 TBil 0.5 mg/dL 0.2-1.2 TP 7.7 g/dL 6.0-8.3 MRSA Screen - 08/25/18 10:59 FINAL CULTURE RESULTS MRSA Negative Nasal Culture MEDIA PLATED Setup at 11:13 on 08/25/2018 Encounters ACCT No. Visit Date/Time Discharge Status Pt. Type Provider Facility Loc./Unit Complaint [id number] 08/31/2018 08:38:28 Document Registration [id number] 08/25/2018 10:33:00 Document Registration [id number] 08/17/2018 13:40:00 08/17/2018 23:59:59 CLS Outpatient JUVENTINO SIEGEL, PADMINI [facility] [id number] 09/29/2017 15:40:00 Document Registration [id number] 07/22/2017 11:20:00 Document Registration [id number] 06/03/2017 11:20:00 Document Registration [id number] 05/05/2017 11:20:00 Document Registration [id number] 04/06/2017 12:00:00 Document Registration [id number] 05/07/2018 12:44:00 05/07/2018 23:59:59 CLS Outpatient SHERI GIBBONS [facility] LAB CHEST PAIN, HTN [id number] 12/24/2017 08:26:00 12/24/2017 23:59:59 CLS Outpatient SOTO STRICKLAND CASH REGISTER BALANCER [facility] RAD WELL WOMAN EXAM [id number] 05/20/2017 10:55:00 05/20/2017 23:59:59 CLS Outpatient ANN-MARIE DIMAS MD [facility] CARD CHEST PAIN [id number] 05/07/2017 07:58:00 05/07/2017 23:59:59 CLS Preadmit MALINDA WEBBER DO [facility] RAD M47.812 [id number] 03/08/2017 13:15:00 03/08/2017 23:59:59 CLS Preadmit MALINDA WEBBER DO [facility] RAD CERVICAL SPONDYLOSIS [id number] 03/03/2017 08:10:00 03/03/2017 23:59:59 CLS Outpatient MALINDA WEBBER DO [facility] RAD CERVICAL SPONDYLOSIS [id number] 02/17/2017 13:28:00 02/17/2017 23:59:59 CLS Preadmit SOTO STRICKLAND APRN [facility] REHAB LOW BACK PAIN [id number] 05/27/2016 07:39:00 05/27/2016 23:59:59 CLS Outpatient JOSE LOYA MD [facility] CARD Z01.810 [id number] 05/25/2016 07:30:00 05/25/2016 23:59:59 CLS Outpatient ANN-MARIE DIMAS MD [facility] CARD CHEST PAIN SYNDROME,HTN, ARIAS [id number] 05/20/2016 13:40:00 05/20/2016 23:59:59 CLS Outpatient JORDAN ASTUDILLO DO [facility] RT COPD,ARIAS,OBESITY,FATIGUE [id number] 05/12/2016 11:37:00 05/12/2016 23:59:59 CLS Outpatient JORDAN ASTUDILLO DO [facility] RAD COPD,ARIAS,FATIGUE [id number] 11/04/2015 08:46:00 11/04/2015 12:15:00 DIS Outpatient JAYDA GUERRERO MD [facility] DYSPHAGIA [id number] 10/31/2015 05:50:00 10/31/2015 23:59:59 CLS Outpatient JAYDA GUERRERO MD [facility] PREOP DYSPHAGIA [id number] 06/13/2015 11:35:00 06/13/2015 23:59:59 CLS Outpatient JAMIE DO FREDA [facility] CARD ABD PAIN [id number] 02/13/2015 08:13:00 02/13/2015 23:59:59 CLS Outpatient ANN-MARIE DIMAS MD [facility] CP HTN [id number] 12/25/2014 12:33:00 12/25/2014 23:59:59 CLS Outpatient ANN-MARIE DIMAS MD [facility] CP,HTN [id number] 12/14/2014 13:59:00 12/14/2014 23:59:59 CLS Outpatient JAMIL VERAS MD [facility] LAB CAROTID BODY TUMOR [id number] 12/14/2014 13:21:00 12/14/2014 23:59:59 CLS Outpatient ANN-MARIE DIMAS MD [facility] RAD CAROTID BODY TUMOR [id number] 07/20/2014 20:30:00 07/21/2014 06:25:00 DIS Outpatient ELVER ARROYO [facility] SLEEP ARIAS,SNORING [id number] 12/06/2013 10:51:00 12/07/2013 15:55:00 DIS Outpatient ANUSHKA LARSON MD [facility] INCONTINENCE;INTRINSIC SPHINCTER DEFICIENCY [id number] 12/01/2013 07:42:00 12/01/2013 23:59:59 CLS Outpatient ANUSHKA LARSON MD [facility] PREOP INCONTINENCE;INTRINSIC SPHINCTER DEFICIENCY [id number] 06/13/2015 11:34:00 Document Registration [id number] 04/29/2012 10:53:00 Document Registration [id number] 07/09/2014 10:33:00 07/09/2014 23:59:59 CLS Outpatient ELVER ARROYO APRN [id number] 03/12/2014 14:59:00 03/12/2014 23:59:59 CLS Outpatient RADHA ROJAS MD [id number] 03/12/2014 14:59:00 03/12/2014 23:59:59 CLS Outpatient RADHA ROJAS MD [id number] 02/07/2014 10:01:00 02/07/2014 23:59:59 CLS Outpatient LILLIERODO MUNIZ APRN [id number] 12/11/2013 16:31:00 12/11/2013 23:59:59 CLS Outpatient RADHA ROJAS MD [id number] 07/26/2013 13:11:00 07/26/2013 23:59:59 CLS Outpatient RODO MOREIRA APRN [id number] 01/09/2013 09:40:00 01/09/2013 23:59:59 CLS Outpatient RADHA ROJAS MD [id number] 01/09/2013 09:40:00 01/09/2013 23:59:59 CLS Outpatient RADHA ROJAS MD [id number] 05/23/2012 10:46:00 05/23/2012 23:59:59 CLS Outpatient [id number] 01/27/2012 13:42:00 01/27/2012 23:59:59 CLS Outpatient [id number] 12/06/2012 15:42:00 Document Registration [id number] 06/15/2012 10:40:00 Document Registration
--- NOTE | 2018-09-02 14:45 | Diagnostic Imaging Report ---
INDICATION: Postreduction right ankle fracture dislocation. Correlation made with ankle radiograph from earlier same day. AP and lateral views were obtained. There has been significant improvement in the ankle fracture dislocation, postreduction. There is a fracture of the distal fibula in the suprasyndesmotic location. Only minimal lateral displacement of the distal fracture fragment is seen. There is also a fracture involving the distal tibia in the region of the medial malleolus. There is improved tibiotalar alignment, however, there is marked widening of the medial clear space consistent with ligamentous injury. IMPRESSION: Improvement in right ankle alignment, status post reduction. There is now overlying cast. There are fibular and tibial fractures. Medial clear space is significantly widened consistent with ligamentous injury. Dictated by: Dictated on workstation # [id number]
[2018-09-02] MEDS ORDERED: ceFAZolin 2 GM/NS 50 ML IVPB IV ONE (15:15)
--- NOTE | 2018-09-02 15:15 | Diagnostic Imaging Report ---
PROCEDURE: CT head and CT cervical spine without contrast. TECHNIQUE: Multiple contiguous axial images were obtained through the brain and cervical spine without the use of intravenous contrast. Sagittal and coronal reformations through the cervical spine were then performed. Auto Exposure Controls were utilized during the CT exam to meet ALARA standards for radiation dose reduction. INDICATION: Fall. COMPARISON: Comparison is made with prior CT head from 12/14/2014. FINDINGS: Ventricles and sulci are within normal limits. No sulcal effacement, midline shift, or hemorrhage is detected. Cisterns are patent. Visualized paranasal sinuses are clear. IMPRESSION: No acute intracranial process is detected. CT cervical spine: FINDINGS: There is reversal of normal cervical lordotic curvature. Significant degenerative disc disease is seen at the C4-C5, C5-C6, and C6-C7 levels, with disc space narrowing and marginal spurring. No fractures are seen. Odontoid is intact. IMPRESSION: Cervical spondylosis. No acute bony abnormality is detected. Dictated by: Dictated on workstation # [id number]
--- NOTE | 2018-09-02 15:32 | Consultation - Ortho ---
Consult - Ortho Chief complaintright ankle fracture History of present illnessthe patient is a 58-year-old white female who fell earlier this morning injuring her right ankle. She was seen in the emergency room and x-rays showed a trimalleolar fracture on the right. This was reduced and splinted and then re-x-rayed. She had carpal tunnel surgery by Dr. Fontenot yesterday and denies any other injuries elsewhere including the left wrist. She denies any previous injuries to the right ankle. She admits to being a diabetic and a smoker. She states she is allergic to penicillin and as a teenager had a rash. She doesn't remember taking any cephalosporins recently. On exam, the right ankle was already splinted but she does have good capillary refill and normal sensation to the toes. Good dorsalis pedis pulse. She can move her toes without pain. Was told that there were no wounds around the ankle. She has no pain at the right knee. No pain in the hip with general range of motion. No pain with full range of motion left lower extremity. No deformity crepitation. She is neurovascularly intact left lower extremity. He has no pain on palpation of the neck and back. Full range of motion of both upper extremities without pain and she is neurovascularly intact in both upper extremities. She does have a dressing and splint on the left wrist which I did not remove. Move her fingers and thumb and has good capillary refill Surgeries were reviewed from the emergency room which shows the talus displaced on the mortise with a fracture of the distal fibular shaft and medial malleolus. There is also a small posterior malleolar fragment. Post-splinting/ reduction x-rays shows the medial malleolar fracture and again the talus still partially displaced laterally. Small posterior malleolar fractures noted as well as the distal fibular shaft fracture Impressiontrimalleolar fracture right ankle Planthe above was discussed with the patient. I talked to the patient and her boyfriend about the fracture and recommended open reduction internal fixation and possible syndesmosis stabilization. I do not feel that this ankle will do well treated nonoperatively and she understands. She will like to proceed with surgery understanding the procedure risks and complications. She understands because she is diabetic and a smoker that she has increased risk of wound problems, infection and that these usually take longer to heal. Again she would like to proceed with surgery. She will be admitted this afternoon by Dr. Gustafson and cleared for surgery. Surgery scheduled tomorrow morning at approximately 10 a.m. We'll keep her nothing by mouth after midnight. We'll use Ancef 2 g IV preoperatively for prophylaxis. I explained to her that there is a 10 percent chance that she will have a similar type reaction to penicillin by using Ancef but I think there is a very small chance she'll have any problems. She had no breathing difficulties with penicillin. Plan on keeping her for a couple days postop so we can get her up although she' ll be nonweightbearing on the right and due to the fact that she had recent carpal tunnel surgery she's can have difficulty using the left upper extremity for ambulation as well. MYLES CINTRON MD September 02, 2018 15:32
[2018-09-02 16:00] VITALS: BP 108/56
--- NOTE | 2018-09-02 16:07 | Consultation-Cardiology ---
HPI-Cardiology Cardiology Consultation: Date of Consultation 09/02/18 Date of Admission Attending Physician Maritza Gustafson DO Admitting Physician [facility] Consulting Physician Preethi HICKMAN MD HPI: Time Seen by a Provider: 16:06 Chief Complaint: Right ankle fracture This is a 58-year-old patient who presented after she fell and fractured her ankle. She has previously followed with Dr. Espinal with an echocardiogram done recently which showed LVH with diastolic dysfunction but normal LV function and no significant valvular heart disease. She had a stress test in generally 2017 which was negative for ischemia or infarction. Before the fracture she had good functional capacity. She denied any chest pain or shortness of breath. Review of Systems-Cardiology Review of Systems Constitutional: As described under HPI; No As described under HPI, No no symptoms reported, No chills, No fever, No lightheadedness Eyes: No As described under HPI, No no symptoms reported, No blindness, No blurred vision, No contact lenses, No drainage, No decreased acuity, No foreign body sensation, No pain, No vision change Ears/Nose/Throat: No As described under HPI, No no symptoms reported, No chronic hearing loss, No ear discharge, No ear pain, No nasal drainage, No ulcerations Respiratory: No no symptoms reported; As described under HPI; No As described under HPI, No cough, No orthopnea, No shortness of breath, No SOB with excertion Cardiovascular: No no symptoms reported; As described under HPI; No As described under HPI, No chest pain, No edema, No irregular heart rate, No lightheadedness, No palpitations Gastrointestinal: No no symptoms reported, No As described under HPI, No abdomen distended, No abdominal pain, No blood streaked bowels, No constipation , No diarrhea, No nausea, No vomiting, No stool coloration changes Genitourinary: No As described under HPI, No burning, No dysuria, No discharge , No frequency, No flank pain, No hematuria, No urgency : No Musculoskeletal: joint pain Skin: No rash, No skin related problems, No ulcerations Psychiatric/Neurological: No anxiety, No depression, No seizure, No focal weakness, No syncope Hematologic: No bleeding abnormalities [id number] Hx Patient Social History Alcohol Use: Denies Use Recreational Drug Use: No Smoking Status: Current Everyday Smoker Type Used: Cigarettes Recent Foreign Travel: No Recent Infectious Disease Expo: No Hospitalization with Isolation: Denies Immunizations Up To Date Tetanus Booster (TDap): Unknown Date of Pneumonia Vaccine: Jan 24, 2010 Past Medical History PMH As described under Assessment. Family Medical History Family History: Arthritis 19 FATHER 19 MOTHER Asthma 19 MOTHER Colon cancer 19 MOTHER Diabetes mellitus G8 SISTER Myocardial infarction G8 BROTHER Thyroid disease 19 MOTHER No Family History of: AIDS Abdominal aortic aneurysm Alcoholism Completed stroke Drug abuse Gastroenteritis Hypertension Parkinson's disease Prostate cancer Psychosocial problem Respiratory disorder Seizure disorder Severe allergy Allergies and Home Medications Allergies Coded Allergies: Penicillins (Unverified Allergy, Unknown, RASH, 12/01/13) Sulfa (Sulfonamide Antibiotics) (Verified Allergy, Unknown, RASH, 12/01/13) Home Medications Amlodipine Besylate 10 Mg Tablet, 10 MG PO DAILY, (Reported) Estrogens Conjugated 30 Gm Cr, 1 GM VG TU, WED, (Reported) Hydrocodone Bit/Acetaminophen 1 Ea Tab, 1-2 EA PO Q4H PRN for PAIN Prescribed by: EN AGOSTO on 12/07/13 1513 Hydroxyzine Pamoate 50 Mg Capsule, 50 MG PO BID, (Reported) Levothyroxine Sodium 150 Mcg Tablet, 150 MCG PO DAILY, (Reported) Loxapine Succinate 25 Mg Capsule, 25 MG PO DAILY PRN for ANXIETY, (Reported) Mupirocin 22 Gm Oint, NS BID, (Reported) Naproxen 500 Mg Tablet, 500 MG PO BID PRN for PAIN, (Reported) Pravastatin Sodium 20 Mg Tablet, 20 MG PO HS, (Reported) Sertraline Hcl 100 Mg Tablet, 150 MG PO DAILY, (Reported) TAKES 1 & 1/2 (100MG) TABLETS DAILY Spironolactone 50 Mg Tablet, 50 MG PO DAILY, (Reported) Trazodone Hcl 150 Mg Tablet, 150 MG PO HS, (Reported) Triamcinolone Acet 15 Gm Cr, TOP BID PRN for RASH, (Reported) Triamcinolone Acetonide 5 Gm Paste..gm., TOP TID PRN for TOUNGE SORE, (Reported) [Breo Ellipta] , 1 PUFF INH EVERY EVENING, (Reported) Patient Home Medication List Home Medication List Reviewed: Yes Physical Exam-Cardiology Physical Exam Vital Signs/I&O 09/02/18 09/02/18 09/02/18 09/02/18 12:56 14:15 14:15 14:30 Pulse 82 76 76 Resp 22 27 20 B/P (MAP) 123/76 (92) 105/70 121/60 Pulse Ox 92 100 99 O2 Delivery Room Air OxyMask OxyMask OxyMask O2 Flow Rate 6.00 6.00 09/02/18 14:30 O2 Delivery OxyMask O2 Flow Rate 6.00 6.00 Capillary Refill : Less Than 3 Seconds Constitutional: appears stated age, AAO x 3; No apparent distress; well- developed, well-nourished HEENT: PERRL; No normal ENT inspection, No TMs normal, No pharynx normal, No scleral icterus (R), No scleral icterus (L), No pale conjunctivae (R), No pale conjunctivae (L), No photophobia, No TM abnormal (R), No TM abnormal (L), No pharyngeal erythema, No tonsillar exudate, No other, No discharge, No EOMI; hearing is well preserved; No hard of hearing; oral hygience is good; No ulceration, No xanthelasmas are seen Neck: No non-tender, No full range of motion, No supple, No normal inspection, No carotid bruit, No limited range of motion, No lymphadenopathy (R), No lymphadenopathy (L), No tender lateral, No tender midline, No thyromegaly, No other; carotid pulses are 2 + bilaterally; No with good upstrokes Respiratory: No accessory muscle use, No respiratory distress, No chest tender , No chest expansion is symmetric; chest is bilaterally symmetric; No lungs clear to percussion; lungs clear to auscultation; No crackles, No rhonchi, No rales, No stridor, No wheezing, No pleural rub, No other Cardiovascular: regular rate-rhythm; No irregularly irregular, No extra beats, No parasternal heave is noted, No JVD, No edema, No bradycardia, No tachycardia , No point of maximal impulse, No cardiac thrills are palpable; S1 and S2; No gallop/S3, No gallop/S4, No diastolic murmur, No systolic murmur, No friction rub, No click, No other Gastrointestinal: No tender, No soft, No round, No distended, No pulsatile mass , No organomegaly, No guarding, No rebound, No tenderness, No hernia, No mass, No audible bowel sounds, No abnormal bowel sounds, No abdominal bruits, No spleenomegaly, No other Rectal: deferred Extremities: No normal range of motion, No non-tender, No normal inspection, No pedal edema, No calf tenderness, No normal capillary refill, No pelvis stable , No calf tenderness, No inflammation, No pedal edema, No slow capillary refill , No swelling, No other, No abrasion, No clubbing, No cyanosis, No ecchymosis, No laceration, No no lower extremity edema bilateral, No significant edema, No tenderness, No wound Neurologic/Psychiatric: no motor/sensory deficits, alert, normal mood/affect, oriented x 3, power is 5/5 both on sides Skin: No normal color, No warm/dry, No cyanosis, No cool, No diaphoresis, No damp, No ecchymosis, No jaundice, No mottled, No pallor, No rash, No tattoos/ piercings, No ulcerations, No rash on exposed areas, No ulcerations on exposed areas, No other ECG Impression ECG Initial ECG Rhythm: Normal Sinus Initial ECG Impression: Normal A/P-Cardiology Assessment/Admission Diagnosis Preoperative cardiovascular risk assessment, Right ankle fracture., Hypertension, Hyperlipidemia Plan Normal LV function on echocardiogram done a few months ago. Nuclear stress test done generally 2016 did not show any infarct or ischemia. No cardiac symptoms including no chest pain or shortness of breath. Good functional capacity. Patient does have history of diabetes, hypertension and hyperlipidemia. Based on the above the patient will be considered to be an intermediate risk for perioperative major adverse cardiac events undergoing a moderate risk noncardiac surgery. I see no cardiac contraindication for the above-mentioned procedure. Continue amlodipine for hypertension. Continue pravastatin for hyperlipidemia. Defer to the primary team for management of diabetes. Thank you for your consultation. Please call me if you have any questions. Hollie Hickman MD, FACP, FACC, FSCAI, FHRS, CCDS Interventional Cardiology Cardiac Electrophysiology Vascular Medicine and Endovascular Interventions Preethi HICKMAN MD September 02, 2018 4:07 pm
[2018-09-02] MEDS ORDERED: traZODone 50 MG (DESYREL) TAB PO PRN (17:15)
[2018-09-02] MEDS ORDERED: HYDROcodone/APAP 10 MG/325 MG (LORTAB) TAB PO PRN (17:15)
[2018-09-02] MEDS ORDERED: HYDROmorphone 2 MG/ML VIAL (DILAUDID) IV PRN (17:15)
[2018-09-02] MEDS ORDERED: ONDANSETRON 4 MG/2 ML (SDV) Z0FRAN IV PRN (17:15)
[2018-09-02] MEDS ORDERED: CATHETER FLUSH 10 ML SYR IV PRN (17:15)
--- OUTSIDE RECORDS SUMMARY | 2018-09-02 17:30 | XMS REPORT | Continuity of Care Document ---
Demographics Preferred Language Unknown Marital Status Unknown [employer] Affiliation Unknown Race Unknown Ethnic Group Unknown Author Organization Unknown Address Unknown Allergies Active Description Code Type Severity Reaction Onset Reported/Identified Relationship to Patient Clinical Status Yes PENICILLIN G BENZATHINE MILD OTHER Yes Penicillins Drug Allergy N/A N/A 08/14/2011 Yes Sulfa(Sulfonamide Antibiotics) Drug Allergy N/A N/A 08/14/2011 Yes Penicillins Drug Allergy 08/14/2011 Yes Sulfa(Sulfonamide Antibiotics) Drug Allergy 08/14/2011 Yes Penicillins [id number] Drug Allergy Unknown RASH 12/01/2013 Yes Sulfa (Sulfonamide Antibiotics) [id number] Drug Allergy Unknown RASH 2013 Medications Medication [...] 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 12/07/2013 MARSHA SIEGEL, ANUSHKA Ribera Ot 788.30 UNSPECIFIED URINARY INCONTINENCE [...] ELSEWHERE CLASSIFIED 02/07/2014 RODO MOREIRA APRN V72.31 HAND STONECUTTER EXAM, ROUTINE 02/07/2014 RODO MOREIRA APRN V76.10 BREAST CANCER SCREENING 02/07/2014 RADHA ROJAS MD V72.31 HAND STONECUTTER EXAM, ROUTINE 02/07/2014 RADHA ROJAS MD V76.10 BREAST CANCER SCREENING 02/07/2014 RADHA ROJAS MD2.31 HAND STONECUTTER EXAM, ROUTINE 02/07/2014 RADHA ROJAS MD V76.10 BREAST CANCER SCREENING 02/07/2014 ELVER ARROYO APRN V72.31 HAND STONECUTTER EXAM, ROUTINE 02/07/2014 ELVER ARROYO APRN V76.10 [...] SPECIFIED FORMS OF TREMOR 07/21/2014 ELVER ARROYO BRAND ENGINEER Ot 327.23 OBSTRUCTIVE SLEEP APNEA (ADULT) (PEDIATR [...] JUDIE SIEGEL, ANN-MARIE Gonzalez Ot I10 03/18/2015 JUIDE SIEGEL, ANN-MARIE Gonzalez Ot R06.00 03/18/2015 JUDIE [...] Gonzalez Ot 786.09 06/13/2015 JUDIE SIEGEL, ANN-MARIE Gonzalez Ot 786.59 06/13/2015 JUDIE SIEGEL, ANN-MARIE Gonzalez [...] RIGHT UPPER QUADRANT 05/12/2016 MARSHA SIEGEL, ANUSHKA iRbera Ot 596.51 HYPERTONICITY OF BLADDER 05/12/2016 ANUSHKA [...] Ot E66.9 OBESITY, UNSPECIFIED 06/02/2016 BAUDILIO DO JORDNA M Ot G47.33 OBSTRUCTIVE SLEEP APNEA (ADULT) [...] MD Ot R07.89 OTHER CHEST PAIN 06/22/2016 JSOE LOYA MD Ot Z01.810 ENCOUNTER FOR PREPROCEDURAL [...] ENCOUNTER FOR OTHER PREPROCEDURAL EXAMIN 01/22/2017 VINCENZO ISEGEL, JOSE Graf Ot Z01.810 ENCOUNTER FOR PREPROCEDURAL [...] G47.33 OBSTRUCTIVE SLEEP APNEA (ADULT) (PEDIATR 01/22/2017 JORDAN ASTUDILLO DO Ot J44.9 CHRONIC OBSTRUCTIVE PULMONARY DISEASE, U 01/22/2017 JORDAN ASTUDILLO DO Ot R53.83 OTHER FATIGUE 01/22/2017 ANN-MARIE DIMAS MD Ot E66.9 OBESITY, UNSPECIFIED 01/22/2017 NAN-MARIE DIMAS MD Ot G47.33 OBSTRUCTIVE SLEEP APNEA [...] MD Ot R07.9 CHEST PAIN, UNSPECIFIED 12/24/2017 UJDIE SIEGEL, ANN-MARIE Gonzalez Ot Z68.41 BODY MASS [...] (PRIMARY) HYPERTENSION 12/24/2017 ANN-MARIE DIMAS MD Ot R07.89 OTHER CHEST PAIN 12/24/2017 ANN-MARIE DIMAS MD Ot R60.9 EDEMA, UNSPECIFIED 12/24/2017 SOTO STRICKLAND BUILDING EQUIPMENT INSPECTOR Ot Z12.31 ENCNTR SCREEN MAMMOGRAM FOR MALIGNANT NE 12/27/2017 SOTO STRICKLAND R BUILDING EQUIPMENT INSPECTOR Ot Z12.31 ENCNTR SCREEN MAMMOGRAM FOR MALIGNANT NE 01/14/2018 SOTO STRICKLAND R BUILDING EQUIPMENT INSPECTOR Ot Z12.31 ENCNTR SCREEN MAMMOGRAM FOR MALIGNANT NE 01/18/2018 SOTO STRICKLAND BUILDING EQUIPMENT INSPECTOR Ot Z12.31 ENCNTR SCREEN MAMMOGRAM FOR MALIGNANT [...] Procedures Code Description [place] [address] A1C (IN-HOUSE) 01/09/2013 J2550 PHENERGAN INJECTION UP TO 50 MG 01/09/2013 74608 THERAPUTIC INJ SQ/IM 01/09/2013 98625 MAMMOGRAM, SCREENING 02/02/2013 08116 OXIMETRY 12/12/2013 78500 MAMMOGRAM, SCREENING 02/07/2014 01705 ROUTINE VENIPUNCTURE 03/12/2014 37863 A1C (IN-HOUSE) 03/12/2014 3046171 GFR CALC (RESULT ONLY) 03/12/2014 36929 BMP 03/12/2014 Results Test Result Range TSH - 04/06/17 12:19 TSH 36.79 mIU/L 0.40-4.50 CMP - 05/05/17 11:32 GLUCOSE 191 mg/dL 65-99 UREA NITROGEN (BUN) 16 mg/dL 7-25 CREATININE 0.66 mg/dL 0.50-1.05 eGFR NON-AFR. [place] 99 mL/min/1.73m2 > OR=60 eGFR 114 mL/min/1.73m2 [...] Loc./Unit Complaint [id number] 08/31/2018 08:38:28 Document Registration [id number] 08/25/2018 10:33:00 Document Registration [id number] 08/17/2018 13:40:00 08/17/2018 23:59:59 CLS Outpatient JUVENTINO SIEGEL, PADMINI Ribera [facility] [id number] 09/29/2017 15:40:00 Document Registration [id number] 07/22/2017 11:20:00 Document Registration [id number] 06/03/2017 11:20:00 Document Registration [id number] 05/05/2017 11:20:00 Document Registration [id number] 04/06/2017 12:00:00 Document Registration [id number] 05/07/2018 12:44:00 05/07/2018 23:59:59 CLS Outpatient SHERI GIBBONS [facility] LAB CHEST PAIN, HTN [id number] 12/24/2017 08:26:00 12/24/2017 23:59:59 CLS Outpatient SOTO STRICKLAND BUILDING EQUIPMENT INSPECTOR [facility] RAD WELL WOMAN EXAM [id number] 05/20/2017 10:55:00 05/20/2017 23:59:59 CLS Outpatient ANN-MARIE DIMAS MD [facility] CARD CHEST PAIN [id number] 05/07/2017 07:58:00 05/07/2017 23:59:59 CLS Preadmit MALINDA WEBBER DO [facility] RAD M47.812 [id number] 03/08/2017 13:15:00 03/08/2017 23:59:59 CLS Preadmit MALINDA WEBBER DO [facility] RAD CERVICAL SPONDYLOSIS [id number] 03/03/2017 08:10:00 03/03/2017 23:59:59 CLS Outpatient MALINDA WEBBER DO [facility] RAD CERVICAL SPONDYLOSIS [id number] 02/17/2017 13:28:00 02/17/2017 23:59:59 CLS Preadmit SOTO STRICKLAND APRN [facility] REHAB LOW BACK PAIN [id number] 05/27/2016 07:39:00 05/27/2016 23:59:59 CLS Outpatient JOSE LOYA MD [facility] CARD Z01.810 [id number] 05/25/2016 07:30:00 05/25/2016 23:59:59 CLS Outpatient ANN-MARIE DIMAS MD [facility] CARD CHEST PAIN SYNDROME,HTN, ARIAS [id number] 05/20/2016 13:40:00 05/20/2016 23:59:59 CLS Outpatient JORDAN ASTUDILLO DO [facility] RT COPD,ARIAS,OBESITY,FATIGUE [id number] 05/12/2016 11:37:00 05/12/2016 23:59:59 CLS Outpatient JORDAN ASTUDILLO DO [facility] RAD COPD,ARIAS,FATIGUE [id number] 11/04/2015 08:46:00 11/04/2015 12:15:00 DIS Outpatient JAYDA GUERRERO MD [facility] DYSPHAGIA [id number] 10/31/2015 05:50:00 10/31/2015 23:59:59 CLS Outpatient JAYDA GUERRERO MD [facility] PREOP DYSPHAGIA [id number] 06/13/2015 11:35:00 06/13/2015 23:59:59 CLS Outpatient JAMIE DO FREDA [facility] CARD ABD PAIN [id number] 02/13/2015 08:13:00 02/13/2015 23:59:59 CLS Outpatient ANN-MARIE DIMAS MD [facility] CP HTN [id number] 12/25/2014 12:33:00 12/25/2014 23:59:59 CLS Outpatient ANN-MARIE DIMAS MD [facility] CP,HTN [id number] 12/14/2014 13:59:00 12/14/2014 23:59:59 CLS Outpatient JAMIL VERAS MD [facility] LAB CAROTID BODY TUMOR [id number] 12/14/2014 13:21:00 12/14/2014 23:59:59 CLS Outpatient ANN-MARIE DIMAS MD [facility] RAD CAROTID BODY TUMOR [id number] 07/20/2014 20:30:00 07/21/2014 06:25:00 DIS Outpatient ELVER ARROYO [facility] SLEEP ARIAS,SNORING [id number] 12/06/2013 10:51:00 12/07/2013 15:55:00 DIS Outpatient ANUSHKA LARSON MD [facility] INCONTINENCE;INTRINSIC SPHINCTER DEFICIENCY [id number] 12/01/2013 07:42:00 12/01/2013 23:59:59 CLS Outpatient ANUSHKA LARSON MD [facility] PREOP INCONTINENCE;INTRINSIC SPHINCTER DEFICIENCY [id number] 06/13/2015 11:34:00 Document Registration [id number] 04/29/2012 10:53:00 Document Registration [id number] 07/09/2014 10:33:00 07/09/2014 23:59:59 CLS Outpatient ELVER ARROYO APRN [id number] 03/12/2014 14:59:00 03/12/2014 23:59:59 CLS Outpatient RADHA ROJAS MD [id number] 03/12/2014 14:59:00 03/12/2014 23:59:59 CLS Outpatient RADHA ROJAS MD [id number] 02/07/2014 10:01:00 02/07/2014 23:59:59 CLS Outpatient LILLIERODO MUNIZ APRN [id number] 12/11/2013 16:31:00 12/11/2013 23:59:59 CLS Outpatient RADHA ROJAS MD [id number] 07/26/2013 13:11:00 07/26/2013 23:59:59 CLS Outpatient RODO MOREIRA APRN [id number] 01/09/2013 09:40:00 01/09/2013 23:59:59 CLS Outpatient RADHA ROJAS MD [id number] 01/09/2013 09:40:00 01/09/2013 23:59:59 CLS Outpatient RADHA ROJAS MD [id number] 05/23/2012 10:46:00 05/23/2012 23:59:59 CLS Outpatient [id number] 01/27/2012 13:42:00 01/27/2012 23:59:59 CLS Outpatient [id number] 12/06/2012 15:42:00 Document Registration [id number] 06/15/2012 10:40:00 Document Registration
--- NOTE | 2018-09-02 17:43 | NUR ---
WILL AMARO admitted to room 418-1, with an admitting diagnosis of fall, on 09/02/18 from ED via stretcher , accompanied by staff.WILL AMARO introduced to surroundings, call light, bed controls, phone, TV, temperature control, lights, meal times, smoking policy, visitor policy, side rail policy, bathrooms and showers. Patient Rights given to patient in the handbook. WILL AMARO verbalizes understanding that [facility] is not responsible for the loss or damage to any personal effects or valuables that are kept in the patients posession during their hospitalization. The following Patient Care Plans and discharge were discussed with the patient - althou noted to be drowsy kept falling asleep during questioning . WILL AMARO verbalizes understanding of Interdisciplinary Patient Education. Patient and/or family were informed about the Rapid Response Team and its purpose.
[2018-09-02] MEDS ORDERED: CYCL1DRO OU (18:36)
[2018-09-02] MEDS ORDERED: MIRA50TA PO (18:36)
[2018-09-02] MEDS ORDERED: METF-399 PO (18:36)
[2018-09-02] MEDS ORDERED: MULT-974 PO (18:36)
[2018-09-02] MEDS ORDERED: SITA50TA PO (18:36)
[2018-09-02] MEDS ORDERED: RT-ALBUINH INH (18:36)
[2018-09-02] MEDS ORDERED: TRAM50TA2 PO (18:36)
[2018-09-02 19:54] VITALS: BP 138/62
[2018-09-02] MEDS: inSUlin ASPART (NovoLOG) 1 UNIT/0.01 ML (CHARGE PER UNIT) SC SCH (21:00)
[2018-09-02] MEDS: fentaNYL INJECTION 100 MCG/2 ML AMP IV PRN ×2 (21:13→23:26)
[2018-09-02] MEDS: CATHETER FLUSH 10 ML SYR IV SCH (22:00)
[2018-09-03] VITALS (14 sets, daily range): BP systolic 107–159; BP diastolic 53–90
[2018-09-03] MEDS: fentaNYL INJECTION 100 MCG/2 ML AMP IV PRN ×3 (01:57→06:19)
[2018-09-03 06:46] LABS: BASOPHILS % (AUTO) 0 % (0-10); EOSINOPHILS # (AUTO) 0.3 10^3/uL (0.0-0.3); EOSINOPHILS % (AUTO) 2 % (0-10); HEMATOCRIT 42 % (35-52); HEMOGLOBIN 13.4 G/DL (11.5-16.0); LYMPHOCYTES % (AUTO) 17 % (12-44); MEAN CORPUSCULAR HEMOGLOBIN 29 PG (25-34); MEAN CORPUSCULAR HGB CONC 32 G/DL (32-36); MEAN CORPUSCULAR VOLUME 91 FL (80-99); MEAN PLATELET VOLUME 10.5 FL (7.4-10.4); MONOCYTES # (AUTO) 1.1 X 10^3 (0.0-1.0); MONOCYTES % (AUTO) 9 % (0-12); NEUTROPHILS # (AUTO) 8.4 X 10^3 (1.8-7.8); NEUTROPHILS % (AUTO) 71 % (42-75); PLATELET COUNT 280 10^3/uL (130-400); WHITE BLOOD COUNT 11.8 10^3/uL (4.3-11.0)
[2018-09-03] MEDS: CATHETER FLUSH 10 ML SYR IV SCH ×3 (07:00→21:19)
[2018-09-03] MEDS: inSUlin ASPART (NovoLOG) 1 UNIT/0.01 ML (CHARGE PER UNIT) SC SCH ×4 (07:00→21:18)
[2018-09-03 07:05] LABS: BUN/CREATININE RATIO 20; CALCIUM 9.2 MG/DL (8.5-10.1); CARBON DIOXIDE 20 MMOL/L (21-32); CHLORIDE 106 MMOL/L (98-107); CREATININE SERUM 0.75 MG/DL (0.60-1.30); GFR ESTIMATED > 60; GLUCOSE 117 MG/DL (70-105); POTASSIUM 4.3 MMOL/L (3.6-5.0); SODIUM 138 MMOL/L (135-145)
[2018-09-03] MEDS ORDERED: ROCURONIUM 10 MG/ML 5 ML SYRINGE IV ONE (07:15)
[2018-09-03] MEDS ORDERED: proPOfol 200 MG/20 ML (DIPRIVAN) VIAL IV ONE (07:15)
[2018-09-03] MEDS ORDERED: SEVOFLURANE (ULTANE) 15 ML INHAL SOLN ONE ×7 (07:15→08:46)
[2018-09-03] MEDS ORDERED: ONDANSETRON 4 MG/2 ML (SDV) Z0FRAN ONE (07:15)
[2018-09-03] MEDS ORDERED: LIDOCAINE PF 2% 5 ML (XYLOCAINE) VIAL ONE (07:15)
[2018-09-03] MEDS ORDERED: MIDAZOLAM 2 MG/2 ML (VERSED) VIAL ONE (07:16)
[2018-09-03] MEDS ORDERED: fentaNYL INJECTION 100 MCG/2 ML AMP ONE (07:16)
[2018-09-03] MEDS ORDERED: BUP/EPI 0.25% 1:200,000 (MARCAINE) 10 ML VIAL IJ ONE ×4 (07:34→09:14)
[2018-09-03] MEDS ORDERED: ONDANSETRON 4 MG/2 ML (SDV) Z0FRAN IVP PRN (07:45)
[2018-09-03] MEDS ORDERED: PROMETHAZINE INJ 25 MG/ML (PHENERGAN) AMP IVP ONE (07:45)
[2018-09-03] MEDS ORDERED: morphine INJ 10 MG/ML 1ML (SYR OR VIAL) IVP ONE (07:45)
[2018-09-03] MEDS ORDERED: MEPERIDINE (DEMEROL) INJ 50 MG/ML IVP ONE (07:45)
[2018-09-03] MEDS ORDERED: LACTATED RINGERS 1,000 ML IV PRN (08:00)
[2018-09-03] MEDS ORDERED: NEO/POLY/BAC (NEOSPORIN) OINT 15 GM TUBE ONE (08:18)
--- NOTE | 2018-09-03 09:20 | Diagnostic Imaging Report ---
INDICATION: Followup right ankle fracture. COMPARISON: 09/02/2018. DISCUSSION: Fluoroscopic support was provided during intraoperative ORIF of the right ankle. Please see the operative report for full detail. FLUOROSCOPY TIME: 49 seconds. IMAGES SUBMITTED: 3. IMPRESSION: 1. Intraoperative ORIF of the right ankle. Dictated by: Dictated on workstation # [id number]
[2018-09-03] MEDS ORDERED: ceFAZolin 2 GM/50 ML NS 50 ML IV ONE (09:30)
[2018-09-03] MEDS ORDERED: ceFAZolin 2 GM/NS 50 ML IVPB IV NR (09:30)
--- NOTE | 2018-09-03 10:52 | History & Physical-Hospitalist ---
History of Present Illness HPI/Chief Complaint CC: Right ankle fracture HPI: This is a 58-year-old white female clinic patient of [facility] who suffered a fall and sustained a right ankle fracture. She had previously undergone left carpal tunnel syndrome release surgery the day before by Dr. Fontenot had taken some pain medication became drowsy and sustained a fall. Currently patient had an uneventful repair by Dr. Leon and currently very drowsy. Patient does not wear oxygen during the day but she does at night at home and patient appears to be high risk for obstructive sleep apnea especially following anesthesia. We will try to verify her home medications and restart. Boyfriend at the bedside. Source: patient, family Exam Limitations: no limitations, clinical condition Date Seen 09/03/18 Time Seen by a Provider: 11:00 Attending Physician Maritza Garza DO [facility] [place] Referring Physician ALEE MESA MD Date of Admission September 02, 2018 at 15:15 Home Medications & Allergies Home Medications Reviewed patient Home Medication Reconciliation performed by pharmacy medication reconciliations smog technician and/or nursing. Patients Allergies have been reviewed. Allergies Allergies Coded Allergies Penicillins (Unverified Allergy, Unknown, RASH, 12/01/13) Sulfa (Sulfonamide Antibiotics) (Verified Allergy, Unknown, RASH, 12/01/13) Past Wgznsqh-Ifanol-Jdnvhm Hx Past Med/Social Hx: Reviewed Nursing Past Med/Soc Hx, Reviewed and Corrections made Patient Social History Marrital Status: cohabiting Employed/Student: unemployed Alcohol Use: Denies Use Number of Drinks Today: AA Recreational Drug Use: No Smoking Status: Current Everyday Smoker Type Used: Cigarettes Physical Abuse Screen: No Sexual Abuse: No Recent Foreign Travel: No Contact w/other who traveled: No Recent Hopitalizations: No Recent Infectious Disease Expo: No Immunizations Up To Date Tetanus Booster (TDap): Unknown Date of Pneumonia Vaccine: Jan 24, 2010 Seasonal Allergies Seasonal Allergies: No Past Medical History Surgeries: Section, Gallbladder, Orthopedic Respiratory: Sleep Apnea Cardiac: Hypertension Endocrine: Hypothyroidsim, Diabetes, Non-Insulin dep, Lupus Psychosocial: Anxiety, Schizophrenia History of Blood Disorders: No Family History Arthritis 19 FATHER 19 MOTHER Asthma 19 MOTHER Colon cancer 19 MOTHER Diabetes mellitus G8 SISTER Myocardial infarction G8 BROTHER Thyroid disease 19 MOTHER No Family History of: AIDS Abdominal aortic aneurysm Alcoholism Completed stroke Drug abuse Gastroenteritis Hypertension Parkinson's disease Prostate cancer Psychosocial problem Respiratory disorder Seizure disorder Severe allergy Review of Systems ROS-Unable to Obtain: unable to ascertain Constitutional: see HPI Physical Exam Physical Exam Vital Signs Vital Signs - First Documented 09/02/18 09/02/18 12:56 16:00 Temp 98.5 Pulse 82 Resp 22 B/P (MAP) 123/76 (92) Pulse Ox 92 O2 Delivery Room Air Capillary Refill : Less Than 3 SecondsLess Than 3 Seconds Height, Weight, BMI Height: 4'11.00" Weight: 198lbs. 0.0oz. 89.786837ny; 40.0 BMI Method:Stated General Appearance: No Apparent Distress, WD/WN, Chronically ill, Obese, Other (confused, lethargic) Respiratory: Chest Non Tender, Lungs Clear, Normal Breath Sounds, No Accessory Muscle Use, No Respiratory Distress Cardiovascular: Regular Rate, Rhythm, No Edema, No Gallop, No JVD, No Murmur, Normal Peripheral Pulses Neurologic/Psychiatric: Disoriented, Other (drowsy) Results Results/Procedures Labs Laboratory Tests 09/03/18 05:48 Patient resulted labs reviewed. Assessment/Plan Admission Diagnosis Assessment: Acute right ankle fracture status post uncomplicated repair by Dr. Leon POD # 0 Schizophrenia Obstructive sleep apnea with nighttime oxygen Hypertension Smoker Plan: Monitor respiratory status Maintain oxygen Pain control Admission Status: Inpatient Order (span 2 midnights) Reason for Inpatient Admission: severe mental illness with left ankle fracture Diagnosis/Problems Diagnosis/Problems (1) RIGHT ANKLE FRACTURE Status: Acute (2) ARIAS on CPAP Status: Chronic (3) Oxygen dependent Status: Chronic (4) Schizophrenia Status: Chronic Qualifiers: Schizophrenia type: unspecified Qualified Codes: F20.9 - Schizophrenia, unspecified (5) Hypertension Status: Chronic Qualifiers: Hypertension type: essential hypertension Qualified Codes: I10 - Essential (primary) hypertension (6) Fall Status: Acute Qualifiers: Encounter type: initial encounter Qualified Codes: W19.XXXA - Unspecified fall, initial encounter Clinical Quality Measures DVT/VTE Risk/Contraindication: Risk Factor Score Per Nursin RFS Level Per Nursing on Admit: 4+=Very High MARITZA GARZA DO September 03, 2018 10:52
--- NOTE | 2018-09-03 10:55 | Operative Report - Ortho ---
Operative Report Surgeon (s)/Certified Public Accountant (s) Surgeon MYLES CINTRON MD Certified Public Accountant n/a Pre-Operative Diagnosis closed trimalleolar fracture right ankle with possible syndesmosis injury Post-Operative Diagnosis Closed trimalleolar fracture right ankle with syndesmosis injury Operative Report Date of Procedure: September 03, 2018 Name of Procedure Performed: Open reduction internal fixation of the medial malleolus, distal fibular shaft, and stabilization of the syndesmosis [id number] minutes at 300 mmHg Description & Findings Operation The patient was seen in the surgical hallway prior to surgery. She had no questions or concerns. I discussed the procedure, risks and complications the day of admission and she wanted to proceed. He was given 2 g Ancef IV. She had no reaction to the Ancef. She does have a documented history of penicillin allergy causing a rash. She was taken to the OR and placed on the OR table. After administration of general anesthesia tourniquet was placed on the right thigh. Her splint was removed from the right lower extremity. She had 2 wounds medial aspect of the ankle. One was 3 mm in diameter the other was 4. They were just anterior to the medial malleolus. One was significant skin stretch/contusion. The other look like a small abrasion. No open wounds were noted. No wounds were noted laterally. The ankle was markedly unstable. The right foot and lower leg were then prepped and draped in the usual sterile manner. The leg was exsanguinated with an Esmarch and the tourniquet was elevated to 300 mmHg. The initial skin incision was made medially which was about a centimeter posterior to the wounds. This was taken down through subcutaneous tissue. The fracture hematoma and fracture were noted. Soft tissue was elevated off the fracture edges. The wound and fracture were irrigated with normal saline. No articular cartilage damage was noted. No comminution. The fracture was easily reduced and held with a reduction clamp. 2 guidewires were then placed through the tip of the medial malleolus into the distal tibia holding the medial malleolar fracture reduced. This was then overdrilled after visualizing the reduction with fluoroscopy. Excellent alignment was noted. 2-30 mm partially threaded 4.0 mm cannulated screws were then inserted over the guidewires and good purchase was noted. This held the actual reduced. Guidewires were left in place but cut shorter. Incision was made laterally over the distal fibula extending proximally. This was taken down through subjacent tissue. The soft tissue was elevated off the fibula and fracture site. Fracture site showed comminution with small free fragments. These were removed. The fracture was easily reduced and held in place with a reduction clamp it was a short oblique fracture and the lag screw could not be placed. While holding the fracture in reduction a 10 hole semitubular plate was then bent to the contour of the fibula. This was placed over the fracture and the first cortical screw was placed proximal to the fracture. Next a locking screw was placed distally. Fluoroscopy was then used to evaluate the reduction and placement of the plate. Excellent alignment was noted of both. At this point additional locking screws are placed distal and cortical screws proximally. Again fluoroscopy was used to visualize the reduction. The mortise was symmetrical. The medial malleolus remained reduced. The fibular fracture was in excellent alignment and good position of the plate and screws. At this point the syndesmosis was stressed with a reduction clamp and also with a deduction and external rotation. There appeared to be a little bit of opening at the syndesmosis so 2 syndesmosis screws were placed through the plate. One just above the joint. These were drilled and measured and appropriate length screws were inserted through the fibula and then holding the syndesmosis reduced the screws were advanced across the tibia. At this point the ankle was evaluated again with fluoroscopy in AP, mortise and lateral views. Excellent alignment was noted of the screws plate syndesmosis screws and medial screws. The syndesmosis was again stressed and no opening was noted. At this point the 2 guidewires were removed. The tourniquet was deflated after 47 minutes. Small bleeders were cauterized. Both wounds were irrigated with normal saline. The lateral wound was closed in layers with 0 Vicryl, 2-0 Vicryl and skin clips. The medial wound was closed with 2-0 Vicryl and skin clips. Both wounds were injected with 0.25 percent Marcaine with epinephrine. The wounds were then dressed with antibiotic ointment, Adaptic and 4 x 4's and then wrapped with Webril. A posterior and sugar tong splint were applied which are wrapped with an Roney wrap. The ankle was placed in neutral. After the splint hardened the patient was transferred to her hospital bed and then to recovery. She tolerated the procedure well. Permanent x-rays were obtained after fluoroscopy evaluation. n/a Anesthesia Type General Estimated Blood Loss 40 mL Packing none. Specimen(s) collected/removed None MYLES CINTRON MD September 03, 2018 10:55
--- NOTE | 2018-09-03 14:26 | Cardiology Progress Note ---
Cardiology SOAP Progress Note Subjective: Status post orthopedic surgery. No cardiac complaints. Objective: I&O/Vital Signs 09/03/18 09/03/18 09/03/18 09/03/18 04:00 08:00 08:00 09:38 Temp 97.6 98.2 97.6 Pulse 74 90 Resp 20 16 14 B/P (MAP) 131/60 (83) 107/70 (82) Pulse Ox 96 93 97 O2 Delivery Nasal Cannula Nasal Cannula Nasal Cannula OxyMask O2 Flow Rate 4.00 4.00 6.00 10 09/03/18 09/03/18 09/03/18 09/03/18 09:40 09:50 10:00 10:10 Temp 98.1 Resp 18 17 16 16 Pulse Ox 96 96 96 89 O2 Delivery OxyMask OxyMask OxyMask OxyMask O2 Flow Rate 10 10 4 4 09/03/18 09/03/18 09/03/18 10:20 10:30 12:00 Temp 100.7 98.2 Pulse 90 Resp 16 15 16 B/P (MAP) 109/68 (82) Pulse Ox 92 93 93 O2 Delivery OxyMask OxyMask Nasal Cannula O2 Flow Rate 6 6 6.00 09/03/18 00:00 Intake Total 2520 ml Output Total 1075 ml Balance 1445 ml Weight (Pounds): 198 Weight (Ounces): 0.0 Weight (Calculated Kilograms): 89.839230 Constitutional: appears stated age, AAO x 3, well-developed, well-nourished Respiratory: chest is bilaterally symmetric, lungs clear to auscultation Cardiovascular: regular rate-rhythm, S1 and S2 Gastrointestional: No tender, No soft, No round, No distended, No pulsatile mass, No organomegaly, No guarding, No rebound, No tenderness, No hernia, No mass, No audible bowel sounds, No abnormal bowel sounds, No abdominal bruits, No spleenomegaly, No other Extremities: No normal range of motion, No non-tender, No normal inspection, No pedal edema, No calf tenderness, No normal capillary refill, No pelvis stable , No calf tenderness, No inflammation, No pedal edema, No slow capillary refill , No swelling, No other, No abrasion, No clubbing, No cyanosis, No ecchymosis, No laceration, No no lower extremity edema bilateral, No significant edema, No tenderness, No wound Neurologic/Psychiatric: no motor/sensory deficits, alert, normal mood/affect, oriented x 3, power is 5/5 both on sides Skin: No normal color, No warm/dry, No cyanosis, No cool, No diaphoresis, No damp, No ecchymosis, No jaundice, No mottled, No pallor, No rash, No tattoos/ piercings, No ulcerations, No rash on exposed areas, No ulcerations on exposed areas, No other Results/Procedures: Labs Laboratory Tests 09/02/18 20:53: Glucometer 130H 09/03/18 05:21: Glucometer 141H 09/03/18 05:48: White Blood Count 11.8H, Red Blood Count 4.66, Hemoglobin 13.4, Hematocrit 42, Mean Corpuscular Volume 91, Mean Corpuscular Hemoglobin 29, Mean Corpuscular Hemoglobin Concent 32, Red Cell Distribution Width 13.0, Platelet Count 280, Mean Platelet Volume 10.5H, Neutrophils (%) (Auto) 71, Lymphocytes (%) (Auto) 17 , Monocytes (%) (Auto) 9, Eosinophils (%) (Auto) 2, Basophils (%) (Auto) 0, Neutrophils # (Auto) 8.4H, Lymphocytes # (Auto) 2.0, Monocytes # (Auto) 1.1H, Eosinophils # (Auto) 0.3, Basophils # (Auto) 0.0, Sodium Level 138, Potassium Level 4.3, Chloride Level 106, Carbon Dioxide Level 20L, Anion Gap 12, Blood Urea Nitrogen 15, Creatinine 0.75, Estimat Glomerular Filtration Rate > 60, BUN/ Creatinine Ratio 20, Glucose Level 117H, Calcium Level 9.2 09/03/18 10:52: Glucometer 155H A/P: Assessment/Dx: Preoperative cardiovascular risk assessment, Right ankle fracture., Hypertension, Hyperlipidemia Plan: Normal LV function on echocardiogram done a few months ago. Nuclear stress test done generally 2016 did not show any infarct or ischemia. No cardiac symptoms including no chest pain or shortness of breath. Good functional capacity. Patient does have history of diabetes, hypertension and hyperlipidemia. Continue amlodipine for hypertension. Continue pravastatin for hyperlipidemia. Defer to the primary team for management of diabetes. Thank you for your consultation. Please call me if you have any questions. M. Enrique Khalid, MD, FACP, FACC, FSCAI, FHRS, CCDS Interventional Cardiology Cardiac Electrophysiology Vascular Medicine and Endovascular Interventions Preethi YUAN MD September 03, 2018 14:26
[2018-09-03] MEDS: HYDROcodone/APAP 5 MG/325 MG (LORTAB) TAB PO PRN ×2 (14:34→21:35)
[2018-09-03] MEDS: LACTATED RINGERS 1,000 ML IV SCH ×2 (16:40→21:35)
[2018-09-03] MEDS: ceFAZolin 2 GM/50 ML NS 50 ML IV SCH (16:40)
[2018-09-03] MEDS: KETOROLAC 15 MG/ML VIAL IV PRN (18:40)
[2018-09-04] MEDS: ceFAZolin 2 GM/50 ML NS 50 ML IV SCH ×2 (00:17→07:52)
[2018-09-04] MEDS: HYDROcodone/APAP 5 MG/325 MG (LORTAB) TAB PO PRN ×6 (01:37→22:38)
[2018-09-04] MEDS: CATHETER FLUSH 10 ML SYR IV SCH ×3 (02:53→20:49)
[2018-09-04 04:50] VITALS: BP 113/57
[2018-09-04] MEDS: KETOROLAC 15 MG/ML VIAL IV PRN ×2 (05:00→20:12)
[2018-09-04] MEDS: LACTATED RINGERS 1,000 ML IV SCH (05:28)
[2018-09-04] MEDS: inSUlin ASPART (NovoLOG) 1 UNIT/0.01 ML (CHARGE PER UNIT) SC SCH ×4 (05:54→21:30)
[2018-09-04 08:00] VITALS: BP 121/78
--- NOTE | 2018-09-04 09:41 | Progress Note - Ortho ---
Progress Note Postoperative day number 1 open reduction internal fixation and stabilization of syndesmosis right ankle He patient is awake and alert. He continues on oxygen. He is complaining of pain right ankle. Presently he is using Toradol and hydrocodone. She is up sitting in the chair. She is afebrile. Her splint is intact. She can move her toes and has normal sensation and good capillary refill. Plancontinue out of bed as tolerated. Continue elevation and ice to the right ankle. Continue nonweightbearing. Physical therapy tomorrow for platform walker ambulation nonweightbearing on the right and weightbearing to the forearm on the left. Laboratory Tests 09/03/18 10:52: Glucometer 155H 09/03/18 16:01: Glucometer 142H 09/03/18 20:54: Glucometer 129H 09/04/18 05:32: Glucometer 140H Vital Signs Date Time Temp Pulse Resp B/P (MAP) Pulse Ox O2 Delivery O2 Flow Rate FiO2 09/04/18 08:00 97.0 66 20 121/78 (92) 100 Nasal Cannula 6.00 09/04/18 07:23 OxyMask 6.00 09/04/18 04:50 97.6 72 18 113/57 (75) 95 OxyMask 6.00 09/03/18 23:20 97.9 70 18 113/56 (75) 95 OxyMask 6.00 09/03/18 21:11 Nasal Cannula 6.00 09/03/18 20:00 Simple Mask 6.00 09/03/18 19:20 98.3 75 20 116/57 (76) 94 Nasal Cannula 6.00 09/03/18 16:00 99.8 83 16 109/53 (71) 91 Nasal Cannula 6.00 09/03/18 12:00 98.2 90 16 109/68 (82) 93 Nasal Cannula 6.00 09/03/18 10:30 100.7 15 93 OxyMask 6 09/03/18 10:20 16 92 OxyMask 6 09/03/18 10:10 98.1 16 89 OxyMask 4 09/03/18 10:00 16 96 OxyMask 4 09/03/18 09:50 17 96 OxyMask 10 09/03/18 09:40 18 96 OxyMask 10 I & O 09/04/18 07:00 Intake Total 4870 ml Output Total 3520 ml Balance 1350 ml Clinical Quality Measures DVT/VTE Risk/Contraindication: Risk Factor Score Per Nursin RFS Level Per Nursing on Admit: 4+=Very High MYLES CINTRON MD September 04, 2018 09:41
--- NOTE | 2018-09-04 10:19 | Physical Therapy Evaluation ---
PT Evaluation-General Medical Diagnosis Admission Date September 02, 2018 at 15:15 Medical Diagnosis: (R) ankle fx Onset Date: September 02, 2018 Therapy Diagnosis Therapy Diagnosis: limited mobility Height/Weight Height (Feet): 4 Height (Inches): 11.00 Weight (Pounds): 198 Weight (Ounces): 0.0 Precautions Precautions/Isolations: Fall Prevention, Standard Precautions Weight Bear Status Right Lower Extremity: Right Non Weight Bearing Left Lower Extremity: Left Full Weight Bearing (L) hand NWB due to recent carpal tunnel release Referral Physician: Dr. Gustafson, Dr. Leon Reason for Referral: Evaluation/Treatment Medical History Pertinent Medical History: COPD Additional Medical History schizophrenia, lupus, anxiety Current History Fell at home and fractured the (R) distal fibula with syndesmosis strain. Reviewed History: Yes Social History Home: Single Level Current Living Status: Significant Other Entry Into Home: Stairs Without Railing PT Steps Into Home: 1 PT Steps Inside Home: 0 Prior/Core FIM Prior Level of Function Therapy Code Descriptions/Definitions Functional [place] Measure: 0=Not Assessed/NA 4=Minimal Assistance 1=Total Assistance 5=Supervision or Setup 2=Maximal Assistance 6=Modified [place] 3=Moderate Assistance 7=Complete [place] Therapy Quality Codes: 6 Independent with activity with or without an assistive device 5 Patient requires set up or clean up by helper. Patient completes activity by themselves 4 Supervision or touching assist (CGA). [place] provide cues , steadying assist 3 The helper provides less than half the effort to complete the activity 2 The helper provides more than half the effort to complete the activity 1 Dependent. The helper does all the effort to complete an activity 7 Patient refused to complete or attempt activity 9 The patient did not perform the activity before the current illness or injury 88 Not attempted due to Medical conditions or safety concerns Functional Abilities and Goals: Independent: Patient completed the activities by him/herself, with or without an assistive device, with no assistance from a helper. Needed Some Help: Patient needed partial assistance from another person to complete activities. Dependent: A helper completed the activities for the patient. Unknown: Not Applicable: Bed Mobility: 6 Transfers (B,C,W/C) (FIM): 6 Gait: 6 Stairs: 6 Indoor Mobility (Ambulation): Independent Stairs: Independent Prior Devices Use: Other-see list below Prior Device Use: cane PT Evaluation-Current Subjective (R) LE sharp pain with slight movement Pain Numeric Pain Scale: 10-Worst Possible Pain Location: Right Location Body Site: Ankle Pain Description: Sharp Pt/Family Goals return home Objective Patient Orientation: Person, Place, Time, Situation Problem Solving: Fair Comprehension: 6 Expression: 6 Attachments: Oxygen, IV ROM/Strength ROM Upper Extremities Shoulder and elbow WFL (B). Wrist in splint on (L). ROM Lower Extremities Below the knee cast on (R). Otherwise WFL Strength Upper Extremities 4-/5 Strength Lower Extremities 4-/5 Neuromuscular (Tone, Coordination, Reflexes) Sensation and reflexes are intact for (B) LEs. Sensory Vision: Functional Hearing: Functional Sensation Right Upper Extremit: Intact Sensation Left Upper Extremity: Intact Sensation Right Lower Extremit: Intact Sensation Left Lower Extremity: Intact Transfers Therapy Code Descriptions/Definitions Functional [place] Measure: 0=Not Assessed/NA 4=Minimal Assistance 1=Total Assistance 5=Supervision or Setup 2=Maximal Assistance 6=Modified [place] 3=Moderate Assistance 7=Complete [place] Transfers (B, C, W/C) (FIM): 2 Scootin Rollin Supine to/from Sit: 2 Sit to/from Stand: 2 Gait Mode of Locomotion: Both Anticipated Mode of Locomotion: Both Distance (FIM): 1=up to 49 ft Distance: 2ft Gait Level of Assist: 1 Gait Persons Needed: 1 Gait Assistive Device: Walker Platform Comments/Gait Description Able to take steps (NWB) forward, back, and to the (L). Balance Sitting Static: Fair Sitting Dynamic: Good Standing Static: Fair Standing Dynamic: Good Assessment/Needs Pt required max assist for transfers and initially struggled to adhere to NWB status. Rehab Potential: Good Equipment Needs Platform walker with (L) platform PT Short Term Goals Short Term Goals Time Frame: September 18, 2018 Transfers (B,C,W/C) (FIM): 6 Gait (FIM): 3 Distance (FIM): 4=866-87 ft Gait Distance Comment: 100ft Gait Level of Assist: 3 Gait Assistive Device: Walker Platform Wheelchair (FIM): 6 Wheelchair distance (FIM): 3=150 ft Wheelchair Distance: 150ft Wheelchair Level of Assist: 6 Stairs (FIM): 1 # of Steps: 1 Stairs Level of Assist: 2 PT Plan Problem List Problem List: Functional Strength, Balance, Gait, Transfer, Bed Mobility Treatment/Plan Treatment Plan: Continue Plan of Care Treatment Plan: Bed Mobility, Functional Activity Nubia, Gait, Therapeutic Exercise, Transfers Treatment Duration: September 18, 2018 Frequency: 11 times per week Estimated Hrs Per Day: .5 hour per day Patient and/or Family Agrees t: Yes Time/GCodes Time In: 0955 Time Out: 1025 Total Billed Treatment Time: 30 Total Billed Treatment 1, [facility] 30 DANA CORRAL PT September 04, 2018 10:19
[2018-09-04] MEDS ORDERED: BISACODYL 10 MG SUPP (DULCOLAX) PR ONE (11:15)
[2018-09-04] MEDS ORDERED: ENOXAPARIN 40 MG/0.4 ML (LOVENOX) SYR SC SCH (11:15)
[2018-09-04] MEDS ORDERED: BISACODYL 10 MG SUPP (DULCOLAX) PR PRN (11:15)
[2018-09-04 11:31] LABS: ABG BASE EXCESS 6.3 MMOL/L (-2.5-2.5); ABG OXYGEN SATURATION 98 % (94-100); ABG PCO2 47 MMHG (35-45); ABG PH 7.43 (7.37-7.43); ABG PO2 93 MMHG (79-93); ABG TCO2 32.1 MMOL/L (21.0-31.0)
[2018-09-04 11:33] LABS: ALLENS TEST YES-POS; INSPIRED O2 5; PATIENT TEMP 98.3; VENTILATOR NO
--- NOTE | 2018-09-04 11:44 | Progress Note-Hospitalist ---
Subjective HPI/CC On Admission Date Seen by Provider: September 04, 2018 Time Seen by Provider: 10:30 CC: Right ankle fracture HPI: This is a 58-year-old white female clinic patient of [facility] who suffered a fall and sustained a right ankle fracture. She had previously undergone left carpal tunnel syndrome release surgery the day before by Dr. Fontenot had taken some pain medication became drowsy and sustained a fall. Currently patient had an uneventful repair by Dr. Leon and currently very drowsy. Patient does not wear oxygen during the day but she does at night at home and patient appears to be high risk for obstructive sleep apnea especially following anesthesia. We will try to verify her home medications and restart. Boyfriend at the bedside. Subjective/Events-last exam Patient doing well ABG reviewed Checked meds and labs Will HLIVF Lovenox will be started DC catheter BM 09/01 so will initiate meds for that Home meds will be reviewed Boyfriend at bedside Review of Systems Gastrointestinal: Constipation Musculoskeletal: leg pain, foot pain Objective Exam Vital Signs Vital Signs Date Time Temp Pulse Resp B/P (MAP) Pulse Ox O2 Delivery O2 Flow Rate FiO2 09/04/18 15:08 96 Nasal Cannula 5.00 09/04/18 12:00 97.8 73 18 120/77 (91) Capillary Refill : Less Than 3 SecondsLess Than 3 Seconds General Appearance: No Apparent Distress, WD/WN, Chronically ill, Obese, Other (confused, lethargic) Respiratory: Chest Non Tender, Lungs Clear, Normal Breath Sounds, No Accessory Muscle Use, No Respiratory Distress Cardiovascular: Regular Rate, Rhythm, No Edema, No Gallop, No JVD, No Murmur, Normal Peripheral Pulses Extremity: Other (ankle pain) Neurologic/Psychiatric: Alert, Oriented x3, No Motor/Sensory Deficits, Normal Mood/Affect, customer advisor II-XII Norm as Tested Results/Procedures Lab Patient resulted labs reviewed. Assessment/Plan Assessment and Plan Assess & Plan/Chief Complaint Assessment: Acute right ankle fracture status post uncomplicated repair by Dr. Leon POD # 1 Schizophrenia Obstructive sleep apnea with nighttime oxygen Hypertension Smoker Constipation Plan: Monitor respiratory status Maintain oxygen Pain control BM regimen Diagnosis/Problems Diagnosis/Problems (1) RIGHT ANKLE FRACTURE Status: Acute (2) ARIAS on CPAP Status: Chronic (3) Oxygen dependent Status: Chronic (4) Schizophrenia Status: Chronic Qualifiers: Schizophrenia type: unspecified Qualified Codes: F20.9 - Schizophrenia, unspecified (5) Hypertension Status: Chronic Qualifiers: Hypertension type: essential hypertension Qualified Codes: I10 - Essential (primary) hypertension (6) Fall Status: Acute Qualifiers: Encounter type: initial encounter Qualified Codes: W19.XXXA - Unspecified fall, initial encounter Clinical Quality Measures DVT/VTE Risk/Contraindication: Risk Factor Score Per Nursin RFS Level Per Nursing on Admit: 4+=Very High SUSAN GARZA DO September 04, 2018 11:44
[2018-09-04 12:00] VITALS: BP 120/77
[2018-09-04] MEDS: LACTULOSE SYRUP 10GM/15ML (ENULOSE) 30ML UDC PO SCH ×2 (12:10→20:50)
[2018-09-04] MEDS: SENNA W/DOCUSATE (SENOKOT S) TABLET PO SCH ×2 (12:10→20:50)
--- NOTE | 2018-09-04 12:54 | Anesthesia-General Post-Op ---
General Patient Condition Mental Status/LOC: Same as Preop Cardiovascular: Satisfactory Nausea/Vomiting: Absent Respiratory: Satisfactory Pain: Controlled Complications: Absent Post Op Complications Complications None Follow Up Care/Instructions Patient Instructions None needed. Anesthesia/Patient Condition Patient Condition Patient is doing well, no complaints, stable vital signs, no apparent adverse anesthesia problems. No complications reported per nursing. LEIGHTON JOHNSON CRNA September 04, 2018 12:54
[2018-09-04 16:00] VITALS: BP 132/62
[2018-09-04] MEDS ORDERED: LOXAPINE SUCCINATE 25 MG PO PRN (17:00)
[2018-09-04] MEDS ORDERED: ARTIFICAL TEARS 0.4 ML UNIT DOSE (REFRESH PLUS) OU PRN (17:15)
--- NOTE | 2018-09-04 18:11 | Cardiology Progress Note ---
Cardiology SOAP Progress Note Subjective: No cardiac complaints. Complains of discomfort at the surgical site. Objective: I&O/Vital Signs 09/04/18 09/04/18 09/04/18 09/04/18 07:23 08:00 09:33 12:00 Temp 97.0 97.8 Pulse 66 73 Resp 20 18 B/P (MAP) 121/78 (92) 120/77 (91) Pulse Ox 100 97 O2 Delivery OxyMask Nasal Cannula Simple Mask Nasal Cannula O2 Flow Rate 6.00 6.00 6.00 6.00 09/04/18 09/04/18 15:08 16:00 Temp 98.0 Pulse 77 Resp 20 B/P (MAP) 132/62 (85) Pulse Ox 96 96 O2 Delivery Nasal Cannula Nasal Cannula O2 Flow Rate 5.00 3.00 09/04/18 00:00 Intake Total 3020 ml Output Total 2490 ml Balance 530 ml Weight (Pounds): 198 Weight (Ounces): 0.0 Weight (Calculated Kilograms): 89.906929 Constitutional: appears stated age, AAO x 3, well-developed, well-nourished Respiratory: chest is bilaterally symmetric, lungs clear to auscultation Cardiovascular: regular rate-rhythm, S1 and S2 Gastrointestional: No tender, No soft, No round, No distended, No pulsatile mass, No organomegaly, No guarding, No rebound, No tenderness, No hernia, No mass, No audible bowel sounds, No abnormal bowel sounds, No abdominal bruits, No spleenomegaly, No other Extremities: No normal range of motion, No non-tender, No normal inspection, No pedal edema, No calf tenderness, No normal capillary refill, No pelvis stable , No calf tenderness, No inflammation, No pedal edema, No slow capillary refill , No swelling, No other, No abrasion, No clubbing, No cyanosis, No ecchymosis, No laceration, No no lower extremity edema bilateral, No significant edema, No tenderness, No wound Neurologic/Psychiatric: no motor/sensory deficits, alert, normal mood/affect, oriented x 3, power is 5/5 both on sides Skin: No normal color, No warm/dry, No cyanosis, No cool, No diaphoresis, No damp, No ecchymosis, No jaundice, No mottled, No pallor, No rash, No tattoos/ piercings, No ulcerations, No rash on exposed areas, No ulcerations on exposed areas, No other Results/Procedures: Labs Laboratory Tests 09/03/18 20:54: Glucometer 129H 09/04/18 05:32: Glucometer 140H 09/04/18 10:35: Glucometer 169H 09/04/18 11:22: Blood Gas Puncture Site RR, Blood Gas Patient Temperature 98.3, Arterial Blood pH 7.43, Arterial Blood Partial Pressure CO2 47H, Arterial Blood Partial Pressure O2 93, Arterial Blood HCO3 31H, Arterial Blood Total CO2 32.1H, Arterial Blood Oxygen Saturation 98, Arterial Blood Base Excess 6.3H, Brian Test YES-POS, Blood Gas Ventilator Setting NO, Blood Gas Inspired Oxygen 5 09/04/18 16:09: Glucometer 150H Microbiology 09/02/18 MRSA Screen - Final, Complete A/P: Assessment/Dx: Preoperative cardiovascular risk assessment, Right ankle fracture., Hypertension, Hyperlipidemia Plan: Normal LV function on echocardiogram done a few months ago. Nuclear stress test done generally 2016 did not show any infarct or ischemia. No cardiac symptoms including no chest pain or shortness of breath. Good functional capacity. Patient does have history of diabetes, hypertension and hyperlipidemia. Continue amlodipine for hypertension. Continue pravastatin for hyperlipidemia. Defer to the primary team for management of diabetes. Pain control, post surgery. Thank you for your consultation. Please call me if you have any questions. Hollie Hickman MD, FACP, FACC, FSCAI, FHRS, CCDS Interventional Cardiology Cardiac Electrophysiology Vascular Medicine and Endovascular Interventions Preethi HICKMAN MD September 04, 2018 18:11
[2018-09-04 20:00] VITALS: BP 118/56
[2018-09-04] MEDS: hydrOXYzine (VISTARIL) 25 MG capsule/tablet PO SCH (20:48)
[2018-09-04] MEDS: traZODone 150 MG (DESYREL) TABLET PO SCH (20:48)
[2018-09-04] MEDS ORDERED: SIMvastatin 10 MG (ZOCOR) TAB PO SCH (21:00)
[2018-09-04] MEDS: RT-ALBUTEROL SULF 2.5 MG/3 ML PRE-MIX VIAL INH SCH (21:29)
[2018-09-04] MEDS: RT-ADVAIR HFA 115/21 MCG PER PUFF IH SCH (21:30)
[2018-09-04 23:28] VITALS: BP 123/64
[2018-09-05 04:16] VITALS: BP 118/58
[2018-09-05] MEDS: HYDROcodone/APAP 5 MG/325 MG (LORTAB) TAB PO PRN ×5 (04:50→23:43)
[2018-09-05 05:08] LABS: BASOPHILS % (AUTO) 0 % (0-10); EOSINOPHILS # (AUTO) 0.1 10^3/uL (0.0-0.3); EOSINOPHILS % (AUTO) 1 % (0-10); HEMATOCRIT 39 % (35-52); HEMOGLOBIN 12.6 G/DL (11.5-16.0); LYMPHOCYTES # (AUTO) 2.1 X 10^3 (1.0-4.0); LYMPHOCYTES % (AUTO) 20 % (12-44); MEAN CORPUSCULAR HEMOGLOBIN 29 PG (25-34); MEAN CORPUSCULAR HGB CONC 32 G/DL (32-36); MEAN CORPUSCULAR VOLUME 91 FL (80-99); MONOCYTES # (AUTO) 1.2 X 10^3 (0.0-1.0); MONOCYTES % (AUTO) 11 % (0-12); NEUTROPHILS % (AUTO) 67 % (42-75); PLATELET COUNT 253 10^3/uL (130-400); RED CELL DISTRIBUTION WIDTH 12.6 % (10.0-14.5); WHITE BLOOD COUNT 10.4 10^3/uL (4.3-11.0)
[2018-09-05 05:28] LABS: ALANINE AMINOTRANSFERASE 13 U/L (0-55); ALBUMIN 3.7 GM/DL (3.2-4.5); ALKALINE PHOSPHATASE 58 U/L (40-136); BILIRUBIN,TOTAL 0.4 MG/DL (0.1-1.0); BUN/CREATININE RATIO 18; CALCIUM 9.6 MG/DL (8.5-10.1); CARBON DIOXIDE 26 MMOL/L (21-32); CHLORIDE 105 MMOL/L (98-107); CREATININE SERUM 0.71 MG/DL (0.60-1.30); GFR ESTIMATED > 60; GLUCOSE 127 MG/DL (70-105); POTASSIUM 3.5 MMOL/L (3.6-5.0); SODIUM 144 MMOL/L (135-145); TOTAL PROTEIN 6.5 GM/DL (6.4-8.2)
[2018-09-05] MEDS: inSUlin ASPART (NovoLOG) 1 UNIT/0.01 ML (CHARGE PER UNIT) SC SCH ×4 (05:30→21:00)
[2018-09-05] MEDS: LEVOTHYROXINE 150 MCG (LEVOTHROID) TAB PO SCH (06:48)
[2018-09-05] MEDS: CATHETER FLUSH 10 ML SYR IV SCH ×3 (06:48→19:25)
[2018-09-05] MEDS: RT-ALBUTEROL SULF 2.5 MG/3 ML PRE-MIX VIAL INH SCH ×2 (07:10→19:35)
[2018-09-05] MEDS: RT-ADVAIR HFA 115/21 MCG PER PUFF IH SCH ×2 (07:10→19:36)
[2018-09-05] MEDS: KETOROLAC 15 MG/ML VIAL IV PRN ×2 (07:43→19:25)
[2018-09-05] MEDS: LINAGLIPTIN (TRADJENTA) 5 MG TABLET PO SCH (07:44)
[2018-09-05] MEDS: hydrOXYzine (VISTARIL) 25 MG capsule/tablet PO SCH ×2 (07:45→21:54)
[2018-09-05] MEDS: SENNA W/DOCUSATE (SENOKOT S) TABLET PO SCH ×2 (07:45→21:55)
[2018-09-05] MEDS: SERTRALINE 100 MG (ZOLOFT) TAB PO SCH (07:45)
[2018-09-05] MEDS: amLODIPine 10 MG (NORVASC) TAB PO SCH (07:47)
[2018-09-05] MEDS: SPIRONOLACTONE 25 MG (ALDACTONE) TAB PO SCH (07:48)
[2018-09-05] MEDS: MULTIVIT W/MINERALS TAB (THERAGRAN M) PO SCH (07:48)
[2018-09-05] MEDS: LACTULOSE SYRUP 10GM/15ML (ENULOSE) 30ML UDC PO SCH ×2 (07:49→21:54)
[2018-09-05 08:00] VITALS: BP 121/56
--- NOTE | 2018-09-05 08:54 | Cardiology Progress Note ---
Subjective Date Seen by Provider: September 05, 2018 Time Seen by Provider: 08:30 Subjective/Events-last exam Patient is sitting up in bed, eating breakfast. C/o right ankle pain. Denies any chest pain or dyspnea. Objective-Cardiology Exam Last Set of Vital Signs Vital Signs 09/05/18 08:00 Temp 96.7 Pulse 77 Resp 18 B/P (MAP) 121/56 (77) Pulse Ox 95 O2 Delivery Nasal Cannula O2 Flow Rate 2.00 Capillary Refill : Less Than 3 SecondsLess Than 3 Seconds I&O Intake and Output 09/05/18 00:00 Intake Total 3500 ml Output Total 2100 ml Balance 1400 ml Intake Oral 1750 ml IV Total 1750 ml Output Urine Total 1950 ml Post Void Residual 150 ml Bladder Scan Volume Amount 33 ml # Voids 2 # Bowel Movements 2 General: Alert, Oriented X3, Cooperative HEENT: Atraumatic, PERRLA Neck: Supple, No JVD, No Thyromegaly Lungs: Clear to Auscultation, Normal Air Movement Heart: Regular Rate, Normal S1, Normal S2, No Murmurs Abdomen: Normal Bowel Sounds, Soft, No Tenderness, No Hepatosplenomegaly, No Masses Extremities: No Clubbing, No Cyanosis, Normal Pulses, No Tenderness/Swelling, Other (trace edema BLE) Skin: No Rashes, No Breakdown, No Significant Lesion Psych/Mental Status: Mental Status NL, Mood NL Results Lab Laboratory Tests 09/05/18 04:40 09/05/18 04:45 A/P-Cardiology Admission Diagnosis Right ankle fracture HTN HLP DM Assessment/Plan Right ankle fracture, s/p repair. COPD, obstructive sleep apnea, on C Pap, followed and managed by Dr. Villalobos as outpatient. Hypertension, good control at this time, continue to monitor Hyperlipidemia, maintained on statin, continue to monitor as outpatient. Diabetes mellitus, followed and managed by primary care physician. Nonobstructive carotid artery stenosis Hypothyroidism, followed and managed by primary care physician. Morbid obesity, BMI is 39, we discussed weight loss and exercise, patient expressed that she has been working on it. Strong family history of heart disease. Lower and upper back pain, joint pain, managed by primary care physician History of depression, anxiety, schizophrenia. Currently stable. Clinical Quality Measures DVT/VTE Risk/Contraindication: Risk Factor Score Per Nursin RFS Level Per Nursing on Admit: 4+=Very High SHERI NICHOLAS September 05, 2018 08:54
[2018-09-05] MEDS ORDERED: NON-FORMULARY MEDICATION 1 EA EA (Mirabegron (Myrbetriq) 50 MG) PO SCH (09:00)
--- NOTE | 2018-09-05 09:48 | Cardiology Progress Note ---
Subjective Date Seen by Provider: September 05, 2018 Time Seen by Provider: 09:47 Subjective/Events-last exam patient is laying down in bed. Denied any chest pain. No palpitation. Review of Systems General: No Chills, No Night Sweats, No Fatigue, No Malaise, No Appetite, No Other HEENT: No Head Aches, No Visual Changes, No Eye Pain, No Ear Pain, No Dysphasia , No Sinus Congestion, No Post Nasal Drip, No Sore Throat, No Other Pulmonary: No Dyspnea, No Cough, No Pleuritic Chest Pain, No Other Cardiovascular: No: Chest Pain, Palpitations, Orthopnea, Paroxysmal Noc. Dyspnea, Edema, Lt Headedness, Other Objective-Cardiology Exam Last Set of Vital Signs Vital Signs 09/05/18 08:00 Temp 96.7 Pulse 77 Resp 18 B/P (MAP) 121/56 (77) Pulse Ox 95 O2 Delivery Nasal Cannula O2 Flow Rate 2.00 Capillary Refill : Less Than 3 SecondsLess Than 3 Seconds I&O Intake and Output 09/05/18 00:00 Intake Total 3500 ml Output Total 2100 ml Balance 1400 ml Intake Oral 1750 ml IV Total 1750 ml Output Urine Total 1950 ml Post Void Residual 150 ml Bladder Scan Volume Amount 33 ml # Voids 2 # Bowel Movements 2 General: Alert, Oriented X3, Cooperative HEENT: Atraumatic, PERRLA Neck: Supple, No JVD, No Thyromegaly Lungs: Clear to Auscultation, Normal Air Movement Heart: Regular Rate, Normal S1, Normal S2, No Murmurs Abdomen: Normal Bowel Sounds, Soft, No Tenderness, No Hepatosplenomegaly, No Masses Extremities: No Clubbing, No Cyanosis, Normal Pulses, No Tenderness/Swelling, Other (trace edema BLE) Skin: No Rashes, No Breakdown, No Significant Lesion Psych/Mental Status: Mental Status NL, Mood NL Results Lab Laboratory Tests 09/05/18 04:40 09/05/18 04:45 A/P-Cardiology Admission Diagnosis Right ankle fracture HTN HLP DM Assessment/Plan Right ankle fracture, s/p repair. COPD, obstructive sleep apnea, on C Pap, followed and managed by Dr. Villalobos as outpatient. Hypertension, good control at this time, continue to monitor Hyperlipidemia, maintained on statin, continue to monitor as outpatient. Diabetes mellitus, followed and managed by primary care physician. Nonobstructive carotid artery stenosis Hypothyroidism, followed and managed by primary care physician. Morbid obesity, BMI is 39, we discussed weight loss and exercise, patient expressed that she has been working on it. Strong family history of heart disease. Lower and upper back pain, joint pain, managed by primary care physician History of depression, anxiety, schizophrenia. Currently stable. Clinical Quality Measures DVT/VTE Risk/Contraindication: Risk Factor Score Per Nursin RFS Level Per Nursing on Admit: 4+=Very High ANN-MARIE DIMAS MD September 05, 2018 09:48
--- NOTE | 2018-09-05 10:14 | Progress Note - Ortho ---
Progress Note Postop day number 2 open reduction internal fixation right ankle The patient remains afebrile. She's having minimal to mild pain. She has been up a little bit with therapy this morning. She will be platform walker ambulation, no weight on the right She can move her toes and has normal sensation and good capillary refill. Continue out of bed as tolerated and physical therapy. Once she is able to get up and do things somewhat on her own will plan on discharge. Plan on changing the dressing and splint tomorrow to a another splint or cast depending on her swelling. Did tell me that her healthcare provider that she has at home change her dressing to her left wrist last night and her incision looked good. I did call Dr. Fontenot until she was in the hospital and doing well with regards to her left wrist and hand. Laboratory Tests 09/04/18 10:35: Glucometer 169H 09/04/18 11:22: Blood Gas Puncture Site RR, Blood Gas Patient Temperature 98.3, Arterial Blood pH 7.43, Arterial Blood Partial Pressure CO2 47H, Arterial Blood Partial Pressure O2 93, Arterial Blood HCO3 31H, Arterial Blood Total CO2 32.1H, Arterial Blood Oxygen Saturation 98, Arterial Blood Base Excess 6.3H, Brian Test YES-POS, Blood Gas Ventilator Setting NO, Blood Gas Inspired Oxygen 5 09/04/18 16:09: Glucometer 150H 09/04/18 20:59: Glucometer 167H 09/05/18 04:40: Sodium Level 144, Potassium Level 3.5L, Chloride Level 105, Carbon Dioxide Level 26, Anion Gap 13, Blood Urea Nitrogen 13, Creatinine 0.71, Estimat Glomerular Filtration Rate > 60, BUN/Creatinine Ratio 18, Glucose Level 127H, Calcium Level 9.6, Corrected Calcium 9.8, Total Bilirubin 0.4, Aspartate Amino Transf (AST/SGOT) 17, Alanine Aminotransferase (ALT/SGPT) 13, Alkaline Phosphatase 58, Total Protein 6.5, Albumin 3.7 09/05/18 04:45: White Blood Count 10.4, Red Blood Count 4.32L, Hemoglobin 12.6, Hematocrit 39, Mean Corpuscular Volume 91, Mean Corpuscular Hemoglobin 29, Mean Corpuscular Hemoglobin Concent 32, Red Cell Distribution Width 12.6, Platelet Count 253, Mean Platelet Volume 10.0, Neutrophils (%) (Auto) 67, Lymphocytes (%) (Auto) 20 , Monocytes (%) (Auto) 11, Eosinophils (%) (Auto) 1, Basophils (%) (Auto) 0, Neutrophils # (Auto) 7.0, Lymphocytes # (Auto) 2.1, Monocytes # (Auto) 1.2H, Eosinophils # (Auto) 0.1, Basophils # (Auto) 0.0 Microbiology 09/02/18 MRSA Screen - Final, Complete Vital Signs Date Time Temp Pulse Resp B/P (MAP) Pulse Ox O2 Delivery O2 Flow Rate FiO2 09/05/18 08:00 96.7 77 18 121/56 (77) 95 Nasal Cannula 2.00 09/05/18 07:50 High Flow N/C 3.00 09/05/18 07:18 94 Nasal Cannula 2.00 09/05/18 04:16 96.7 77 20 118/58 (78) 92 Nasal Cannula 3.00 09/04/18 23:28 97.0 71 18 123/64 (83) 90 Nasal Cannula 3.00 09/04/18 21:30 95 Nasal Cannula 3.00 09/04/18 20:00 99.0 81 20 118/56 (76) 93 Nasal Cannula 3.00 09/04/18 20:00 High Flow N/C 3.00 09/04/18 16:00 98.0 77 20 132/62 (85) 96 Nasal Cannula 3.00 09/04/18 15:08 96 Nasal Cannula 5.00 09/04/18 12:00 97.8 73 18 120/77 (91) 97 Nasal Cannula 6.00 I & O 09/05/18 07:00 Intake Total 2400 ml Output Total 1500 ml Balance 900 ml Clinical Quality Measures DVT/VTE Risk/Contraindication: Risk Factor Score Per Nursin RFS Level Per Nursing on Admit: 4+=Very High MYLES CINTRON MD September 05, 2018 10:14
--- NOTE | 2018-09-05 10:39 | Physical Therapy Daily Note ---
PT Daily Note-Current Subjective Pt reports she is feeling that she is doing a little better but still not able to walk or hop, only able to pivot and states it takes her a long time to do that, but is moving the rest of her body better. Agreeable to PT session Pain Numeric Pain Scale: 0-No Pain Comment: report of increased pain with activity, but no rating given Appearance 849am first attempt made for PT session, pt eating breakfast. 2nd attempt, Pt in bed with family present upon arrival. Pt requesting and assisted with use of BSC At end of treatment session, pt sitting up in recliner with LE's elevated, extra pillows under RLE and LUE and behind back, call light, phone and bedside table within reach, family present Mental Status Patient Orientation: Person, Place, Time, Eyes Open Attachments: Oxygen cast RLE, splint LUE Transfers Therapy Code Descriptions/Definitions Functional [place] Measure: 0=Not Assessed/NA 4=Minimal Assistance 1=Total Assistance 5=Supervision or Setup 2=Maximal Assistance 6=Modified [place] 3=Moderate Assistance 7=Complete Pleasants Therapy Quality Codes: 6 Independent with activity with or without an assistive device 5 Patient requires set up or clean up by helper. Patient completes activity by themselves 4 Supervision or touching assist (CGA). [place] provide cues , steadying assist 3 The helper provides less than half the effort to complete the activity 2 The helper provides more than half the effort to complete the activity 1 Dependent. The helper does all the effort to complete an activity 7 Patient refused to complete or attempt activity 9 The patient did not perform the activity before the current illness or injury 88 Not attempted due to Medical conditions or safety concerns Transfers (B, C, W/C) (FIM): 4 Scootin Rollin Supine to/from Sit: 4 Sit to/from Stand: 4 Bed to/from Chair: 4 CGA to min A required with bed mobility, supine to sit edge of bed, x2 stand pivot transfer. Fatigue by end of session, pt with difficulty maintaining NWB status RLE. Uses pivot technique to transfer between sitting surfaces. Unable to hop or take wt off LLE Weight Bearing Right Lower Extremity: Right Non Weight Bearing Left Lower Extremity: Left Full Weight Bearing (L) hand NWB due to recent carpal tunnel release Gait Training Gait (FIM): 1 Distance (FIM): 1=up to 49 ft Distance: 2' x 2 reps Gait Level of Assist: 4 Gait Persons Needed: 1 Gait Assistive Device: Walker Platform platform for LUE, NWB L wrist and RLE. Unable to fully maintain NWB status RLE. Uses pivot technique and unable to take full wt off RLE. Exercises Supine Ex: Ankle pumps (LLE), Rolling, Heel Slides, Straight leg raise Supine Reps: 10 Treatments bed mobility, transfers, safety, gait, activity tolerance, balance, strength, review of precautions/WB status, functional mobility Assessment Current Status: Good Progress PT Short Term Goals Short Term Goals Time Frame: September 18, 2018 Transfers (B,C,W/C) (FIM): 6 Gait (FIM): 3 Distance (FIM): 5=337-94 ft Gait Distance Comment: 100ft Gait Level of Assist: 3 Gait Assistive Device: Walker Platform Wheelchair (FIM): 6 Wheelchair distance (FIM): 3=150 ft Wheelchair Distance: 150ft Wheelchair Level of Assist: 6 Stairs (FIM): 1 # of Steps: 1 Stairs Level of Assist: 2 PT Plan Treatment/Plan Treatment Plan: Continue Plan of Care Treatment Plan: Bed Mobility, Functional Activity Nubia, Gait, Therapeutic Exercise, Transfers Treatment Duration: September 18, 2018 Frequency: 11 times per week Estimated Hrs Per Day: .5 hour per day Patient and/or Family Agrees t: Yes Safety Risks/Education Patient Education: Gait Training, Transfer Techniques, Reviewed Precautions, Instructions to Caregiver, Disease Process, Safety Issues Teaching Recipient: Patient Teaching Methods: Demonstration, Discussion Response to Teaching: Verbalize Understanding, Return Demonstration, Reinforcement Needed Time/GCodes Time In: 950 Time Out: 1010 Total Billed Treatment Time: 20 Total Billed Treatment 1 visit, FA x 1 unit CHRISTIANOJULIO CESAR CAN DOFFER September 05, 2018 10:39
--- NOTE | 2018-09-05 10:50 | Physician Query Clarification ---
PQ-Further Specificity Admission/Discharge Admission Date: September 02, 2018 at 15:15 Discharge Date: The medical record reflects the following clinical scenario: History/Risk Factors: Rash Tongue sores Clinical Findings: History of lupus documented on ED record-Dr. Thapa. Treatment: Triamcinolone Acetonide Cream and paste on home med list. Question: Can you further specify Lupus per the clinical indicators above? Please document below. 1. Systemic Lupus Erythematosus. 2. Systemic Lupus Erythematosus with organ involvement. 3. Other, with explanation of the clinical findings. 4. Clinically undetermined, no explanation for the clinical findings. PHYSICIAN RESPONSE Can you specify per above: Clinically undetermined In responding to this query, please exercise your independent professional judgment. The purpose of this communication is to more accurately reflect the complexity of your patients condition. The fact that a question is asked does not imply that any particular answer is desired or expected. Thank you for your timely response to this clarification. Requestors name: Sandra Bosch [facility] Phone # ext [phone] or [phone] THIS PHYSICIAN QUERY FORM IS A PERMANENT PART OF THE MEDICAL RECORD SANDRA BOSCH September 05, 2018 10:50 SUSAN GARZA DO September 05, 2018 13:21
[2018-09-05] MEDS: ENOXAPARIN 40 MG/0.4 ML (LOVENOX) SYR SC SCH ×2 (11:15→21:54)
[2018-09-05 12:00] VITALS: BP 103/55
[2018-09-05] MEDS ORDERED: ATOR40TA70 PO (12:04)
[2018-09-05] MEDS ORDERED: SERT100T8 PO (12:04)
[2018-09-05] MEDS ORDERED: FLUT16SP22 NS (12:04)
[2018-09-05] MEDS ORDERED: GBPN600T PO (12:04)
[2018-09-05] MEDS ORDERED: DESM0.2T29 PO (12:04)
[2018-09-05] MEDS ORDERED: ALBU18HF2 INH (12:04)
[2018-09-05] MEDS ORDERED: OMG1KC PO (12:04)
[2018-09-05] MEDS ORDERED: ESTR2TAB PO (12:04)
[2018-09-05] MEDS ORDERED: IMIP50TA4 PO (12:04)
[2018-09-05] MEDS ORDERED: AMLO10TA7 PO (12:04)
[2018-09-05] MEDS ORDERED: DULA0.75 SC (12:04)
[2018-09-05] MEDS ORDERED: SPIR50TA4 PO (12:04)
[2018-09-05] MEDS ORDERED: LOXA10CA PO (12:04)
[2018-09-05] MEDS ORDERED: TRIA15CR TOP (12:04)
[2018-09-05] MEDS ORDERED: HYDR-3816 PO (12:04)
[2018-09-05] MEDS ORDERED: TRAZ-190 PO (12:04)
[2018-09-05] MEDS ORDERED: PANT40TA3 PO (12:04)
[2018-09-05] MEDS ORDERED: LEVO150T6 PO (12:04)
[2018-09-05] MEDS ORDERED: HYDR50TA76 PO (12:04)
[2018-09-05] MEDS ORDERED: SUMA50TA2 PO (12:04)
[2018-09-05] MEDS ORDERED: FLUT1AER INH (12:04)
[2018-09-05] MEDS ORDERED: PALI234D INJ (12:04)
[2018-09-05] MEDS ORDERED: MONT10TA24 PO (12:04)
--- NOTE | 2018-09-05 12:09 | NUR ---
WENT OVER THE EXT MED WITH THE PATIENT AND SHE VERIFIED HOW SHE TAKES THEM. I MADE SEVERAL CHANGES TO THE MED REC THAT HAD ALREADY BEEN CONTINUED BY THE PHYSICIAN. I LEFT THOSE CHANGES WITH THE PHARMACIST FOR CLARIFICATION.
--- NOTE | 2018-09-05 13:14 | Progress Note (SOAP) ---
Subjective Subjective/Events-last exam No concerns per patient. States that she has not been up yet today. States that ortho was going to cast right lE tomorrow. Tolerating PO diet. BM today. Review of Systems Date Seen by Provider: September 05, 2018 Time Seen by Provider: 12:25 General: No Chills Pulmonary: No Dyspnea Cardiovascular: No: Chest Pain, Palpitations Gastrointestinal: No: Diarrhea, Constipation Neurological: Weakness, Incoordination Objective Exam Last Set of Vital Signs Vital Signs Date Time Temp Pulse Resp B/P (MAP) Pulse Ox O2 Delivery O2 Flow Rate FiO2 09/05/18 08:00 96.7 77 18 121/56 (77) 95 Nasal Cannula 2.00 Capillary Refill : Less Than 3 SecondsLess Than 3 Seconds I&O Intake and Output 09/05/18 00:00 Intake Total 3500 ml Output Total 2100 ml Balance 1400 ml Intake Oral 1750 ml IV Total 1750 ml Output Urine Total 1950 ml Post Void Residual 150 ml Bladder Scan Volume Amount 33 ml # Voids 2 # Bowel Movements 2 General: Alert, Oriented X3, Cooperative, No Acute Distress Lungs: Clear to Auscultation, Normal Air Movement Heart: Regular Rate, No Murmurs Extremities: Other (Splint on RLE) Neuro: Sensation Intact Results/Procedures Lab Laboratory Tests 09/04/18 16:09: Glucometer 150H 09/04/18 20:59: Glucometer 167H 09/05/18 04:40: Sodium Level 144, Potassium Level 3.5L, Chloride Level 105, Carbon Dioxide Level 26, Anion Gap 13, Blood Urea Nitrogen 13, Creatinine 0.71, Estimat Glomerular Filtration Rate > 60, BUN/Creatinine Ratio 18, Glucose Level 127H, Calcium Level 9.6, Corrected Calcium 9.8, Total Bilirubin 0.4, Aspartate Amino Transf (AST/SGOT) 17, Alanine Aminotransferase (ALT/SGPT) 13, Alkaline Phosphatase 58, Total Protein 6.5, Albumin 3.7 09/05/18 04:45: White Blood Count 10.4, Red Blood Count 4.32L, Hemoglobin 12.6, Hematocrit 39, Mean Corpuscular Volume 91, Mean Corpuscular Hemoglobin 29, Mean Corpuscular Hemoglobin Concent 32, Red Cell Distribution Width 12.6, Platelet Count 253, Mean Platelet Volume 10.0, Neutrophils (%) (Auto) 67, Lymphocytes (%) (Auto) 20 , Monocytes (%) (Auto) 11, Eosinophils (%) (Auto) 1, Basophils (%) (Auto) 0, Neutrophils # (Auto) 7.0, Lymphocytes # (Auto) 2.1, Monocytes # (Auto) 1.2H, Eosinophils # (Auto) 0.1, Basophils # (Auto) 0.0 09/05/18 10:57: Glucometer 219H Microbiology 09/02/18 MRSA Screen - Final, Complete Assessment/Plan Assessment/Plan Admission Status: Inpatient Order (span 2 midnights) Reason for Inpatient Admission: Post op and needs extensive therapy (1) RIGHT ANKLE FRACTURE Status: Acute Assessment & Plan: - Managed by Ortho POD#2 (2) Carpal tunnel syndrome, left Status: Acute Assessment & Plan: - Surgery last week by Dr Aranda (3) ARIAS on CPAP Status: Chronic Assessment & Plan: - Home CPAP in room (4) Hypertension Status: Chronic Assessment & Plan: - Controlled Qualifiers: Qualified Codes: I10 - Essential (primary) hypertension (5) Fall Status: Acute Qualifiers: Qualified Codes: W19.XXXA - Unspecified fall, initial encounter (6) Debility Status: Acute Assessment & Plan: - IRF to eval, patient unsteady Clinical Quality Measures DVT/VTE Risk/Contraindication: Risk Factor Score Per Nursin RFS Level Per Nursing on Admit: 4+=Very High JOSE LOYA MD September 05, 2018 13:14
--- NOTE | 2018-09-05 14:25 | Physical Therapy Daily Note ---
PT Daily Note-Current Subjective Patient in bed pre tx, agrees to PT, has 5/10 pain in right foot. Appearance Patient in recliner post tx with nurse call, phone, tray, all needs met. Legs elevated and right leg on two pillows. Mental Status Patient Orientation: Person, Place, Situation Attachments: Oxygen Transfers Therapy Code Descriptions/Definitions Functional [place] Measure: 0=Not Assessed/NA 4=Minimal Assistance 1=Total Assistance 5=Supervision or Setup 2=Maximal Assistance 6=Modified Ger[place] 3=Moderate Assistance 7=Complete Gerber Therapy Quality Codes: 6 Independent with activity with or without an assistive device 5 Patient requires set up or clean up by helper. Patient completes activity by themselves 4 Supervision or touching assist (CGA). [place] provide cues , steadying assist 3 The helper provides less than half the effort to complete the activity 2 The helper provides more than half the effort to complete the activity 1 Dependent. The helper does all the effort to complete an activity 7 Patient refused to complete or attempt activity 9 The patient did not perform the activity before the current illness or injury 88 Not attempted due to Medical conditions or safety concerns Transfers (B, C, W/C) (FIM): 4 Scootin Rollin Supine to/from Sit: 5 Sit to/from Stand: 4 Bed to/from Chair: 4 CGA for sit to stand and min assist for transfer using a platform walker. Patient mostly scoots her left foot across the floor, doesn't clear the floor for an actual step. She does seem able to mostly maintain her WB status. Weight Bearing Right Lower Extremity: Right Non Weight Bearing Left Lower Extremity: Left Full Weight Bearing (L) hand NWB due to recent carpal tunnel release Exercises Seated Therapy Exercises: Long arc quads, Hip flexion Seated Reps: 15 Treatments bed mobility and transfers, LE exercise Assessment Current Status: Poor Progress No change in mobility. Patient is not able to actually take a step, she scoots her left foot across the floor. PT Short Term Goals Short Term Goals Time Frame: September 18, 2018 Transfers (B,C,W/C) (FIM): 6 Gait (FIM): 3 Distance (FIM): 5=891-16 ft Gait Distance Comment: 100ft Gait Level of Assist: 3 Gait Assistive Device: Walker Platform Wheelchair (FIM): 6 Wheelchair distance (FIM): 3=150 ft Wheelchair Distance: 150ft Wheelchair Level of Assist: 6 Stairs (FIM): 1 # of Steps: 1 Stairs Level of Assist: 2 PT Plan Problem List Problem List: Activity Tolerance, Functional Strength, Safety, Balance, Gait, Transfer, Bed Mobility, ROM Treatment/Plan Treatment Plan: Continue Plan of Care Treatment Plan: Bed Mobility, Concurrent Therapy, Education, Functional Activity Nubia, Functional Strength, Gait, Safety, Therapeutic Exercise, Transfers Treatment Duration: September 18, 2018 Frequency: 11 times per week Estimated Hrs Per Day: .5 hour per day Patient and/or Family Agrees t: Yes Safety Risks/Education Patient Education: Transfer Techniques, Reviewed Precautions, Correct Positioning, Safety Issues Teaching Recipient: Patient Teaching Methods: Demonstration, Discussion Response to Teaching: Reinforcement Needed Time/GCodes Time In: 1400 Time Out: 1417 Total Billed Treatment Time: 17 Total Billed Treatment 1 visit FA MERISSA SORENSON PT September 05, 2018 14:25
[2018-09-05 16:00] VITALS: BP 113/58
--- NOTE | 2018-09-05 16:15 | NUR ---
IRF Evaluation: Order received to evaluate patient for the ARU. Chart reviewed and discussed with Dr. Gustafson; patient accepted. CM/SS notified. Met with patient to discuss details of rehabilitation program. Patient is agreeable to admission and required therapy regimen. Dr. Lawrence notified. Anticipate admission, 09/06/18. CM/SS notified. Thank you for this referral.
[2018-09-05] MEDS: metFORMIN 500 MG (GLUCOPHAGE) TAB PO SCH (16:33)
[2018-09-05] MEDS ORDERED: PATIENT MAY USE OWN MEDS, ALL MC SCH (19:30)
[2018-09-05 20:07] VITALS: BP 101/52
[2018-09-05] MEDS ORDERED: MYRBETRIQ 50 MG TABLET PO SCH (21:00)
[2018-09-05] MEDS ORDERED: ATORVASTATIN 40 MG (LIPITOR) TABLET PO SCH (21:00)
[2018-09-05] MEDS: traZODone 150 MG (DESYREL) TABLET PO SCH (21:54)
[2018-09-06] VITALS: BP 113/65
[2018-09-06 04:22] VITALS: BP 136/77
[2018-09-06] MEDS: HYDROcodone/APAP 5 MG/325 MG (LORTAB) TAB PO PRN ×2 (04:50→09:19)
[2018-09-06] MEDS: inSUlin ASPART (NovoLOG) 1 UNIT/0.01 ML (CHARGE PER UNIT) SC SCH (05:45)
[2018-09-06] MEDS: CATHETER FLUSH 10 ML SYR IV SCH (06:35)
[2018-09-06] MEDS: metFORMIN 500 MG (GLUCOPHAGE) TAB PO SCH (06:35)
[2018-09-06] MEDS: LEVOTHYROXINE 150 MCG (LEVOTHROID) TAB PO SCH (06:35)
[2018-09-06] MEDS: RT-ADVAIR HFA 115/21 MCG PER PUFF IH SCH (06:48)
[2018-09-06] MEDS: RT-ALBUTEROL SULF 2.5 MG/3 ML PRE-MIX VIAL INH SCH (06:48)
[2018-09-06 07:52] VITALS: BP 124/57
--- NOTE | 2018-09-06 08:42 | Cardiology Progress Note ---
Subjective Date Seen by Provider: September 06, 2018 Time Seen by Provider: 08:41 Subjective/Events-last exam patient is sitting in a chair, still having pain in her ankle. No chest pain Review of Systems General: No Chills, No Night Sweats, No Fatigue, No Malaise, No Appetite, No Other HEENT: No Head Aches, No Visual Changes, No Eye Pain, No Ear Pain, No Dysphasia , No Sinus Congestion, No Post Nasal Drip, No Sore Throat, No Other Pulmonary: No Dyspnea, No Cough, No Pleuritic Chest Pain, No Other Cardiovascular: No: Chest Pain, Palpitations, Orthopnea, Paroxysmal Noc. Dyspnea, Edema, Lt Headedness, Other Objective-Cardiology Exam Last Set of Vital Signs Vital Signs 09/06/18 09/06/18 07:52 08:00 Temp 98.4 Pulse 67 Resp 16 B/P (MAP) 124/57 (79) Pulse Ox 95 O2 Delivery Nasal Cannula O2 Flow Rate 3.00 Capillary Refill : Less Than 3 SecondsLess Than 3 Seconds I&O Intake and Output 09/06/18 00:00 Intake Total 2020 ml Output Total 650 ml Balance 1370 ml Intake Oral 1420 ml IV Total 600 ml Output Urine Total 650 ml # Voids 2 General: Alert, Oriented X3, Cooperative, No Acute Distress HEENT: Atraumatic, PERRLA Neck: Supple, No JVD, No Thyromegaly Lungs: Clear to Auscultation, Normal Air Movement Heart: Regular Rate, Normal S1, Normal S2, No Murmurs Abdomen: Normal Bowel Sounds, Soft, No Tenderness, No Hepatosplenomegaly, No Masses Extremities: No Clubbing, No Cyanosis, Other (Splint on RLE) Skin: No Rashes, No Breakdown, No Significant Lesion Neuro: Sensation Intact Psych/Mental Status: Mental Status NL, Mood NL Results Lab Laboratory Tests Test 09/05/18 10:57 09/05/18 15:48 09/05/18 20:27 09/06/18 05:18 Range/Units Glucometer 219 H 142 H 160 H 110 70-110 MG/DL A/P-Cardiology Admission Diagnosis Right ankle fracture HTN HLP DM Assessment/Plan Right ankle fracture, s/p repair, recovering well. Managed by ortho service COPD, obstructive sleep apnea, on C Pap, followed and managed by Dr. Villalobos as outpatient. Hypertension, good control at this time, continue to monitor Hyperlipidemia, maintained on statin, continue to monitor as outpatient. Diabetes mellitus, followed and managed by primary care physician. Nonobstructive carotid artery stenosis Hypothyroidism, followed and managed by primary care physician. Morbid obesity, BMI is 39, we discussed weight loss and exercise, patient expressed that she has been working on it. Strong family history of heart disease. Lower and upper back pain, joint pain, managed by primary care physician History of depression, anxiety, schizophrenia. Currently stable. Clinical Quality Measures DVT/VTE Risk/Contraindication: Risk Factor Score Per Nursin RFS Level Per Nursing on Admit: 4+=Very High ANN-MARIE DIMAS MD September 06, 2018 08:41
[2018-09-06] MEDS ORDERED: MYRBETRIQ 50 MG TABLET PO SCH (09:00)
[2018-09-06] MEDS: ENOXAPARIN 40 MG/0.4 ML (LOVENOX) SYR SC SCH (09:02)
[2018-09-06] MEDS: LINAGLIPTIN (TRADJENTA) 5 MG TABLET PO SCH (09:03)
[2018-09-06] MEDS: MULTIVIT W/MINERALS TAB (THERAGRAN M) PO SCH (09:03)
[2018-09-06] MEDS: amLODIPine 10 MG (NORVASC) TAB PO SCH (09:03)
[2018-09-06] MEDS: hydrOXYzine (VISTARIL) 25 MG capsule/tablet PO SCH (09:03)
[2018-09-06] MEDS: LACTULOSE SYRUP 10GM/15ML (ENULOSE) 30ML UDC PO SCH (09:03)
[2018-09-06] MEDS: SERTRALINE 100 MG (ZOLOFT) TAB PO SCH (09:03)
[2018-09-06] MEDS: SPIRONOLACTONE 25 MG (ALDACTONE) TAB PO SCH (09:03)
[2018-09-06] MEDS: SENNA W/DOCUSATE (SENOKOT S) TABLET PO SCH (09:03)
[2018-09-06] MEDS ORDERED: NEO/POLY/BAC (NEOSPORIN) OINT 15 GM TUBE TOP SCH (09:31)
--- NOTE | 2018-09-06 10:15 | NUR ---
NOTE THAT DR CINTRON APPLIED CAST TO R ANKLE -- AWAITING DISCHARGE ORDERS FROM DR LOYA (PT TO GO TO REHAB )
--- NOTE | 2018-09-06 10:28 | Progress Note - Ortho ---
Progress Note Postop day number 3 open reduction internal fixation right ankle fracture The patient is complaining of mild pain mainly due to the fact that she sitting in her rehabilitation chair and just can't get comfortable. She is afebrile. Her splint and dressings were removed incisions looked good without redness or drainage. The skin area that was stretched when she fractured her ankle looks good with no evidence of skin loss and in fact the skin is nice and pink there with no apparent skin damage Her wounds were redressed with triple antibiotic ointment, Adaptic and 4 x 4's and then a short-leg cast was applied. I tried to get her up to neutral and I lacked maybe 5-10 at most. Her toes were pink and warm and she had good capillary refill and normal sensation I spoke with Dr. Gustafson and she is going to be transferred down to rehabilitation for approximately 1 week. Continue nonweightbearing. Continue elevation as needed. We'll plan on changing her cast 2 weeks postop and removing her bj. Laboratory Tests 09/05/18 10:57: Glucometer 219H 09/05/18 15:48: Glucometer 142H 09/05/18 20:27: Glucometer 160H 09/06/18 05:18: Glucometer 110 Microbiology 09/02/18 MRSA Screen - Final, Complete Vital Signs Date Time Temp Pulse Resp B/P (MAP) Pulse Ox O2 Delivery O2 Flow Rate FiO2 09/06/18 09:50 98.4 09/06/18 08:00 95 Nasal Cannula 3.00 09/06/18 07:52 98.4 67 16 124/57 (79) 94 Nasal Cannula 2.00 09/06/18 06:48 93 Nasal Cannula 2.00 09/06/18 04:22 96.6 69 18 136/77 (96) 96 Nasal Cannula 2.00 09/06/18 00:00 97.6 74 20 113/65 (81) 95 Nasal Cannula 3.00 09/05/18 20:07 96.7 76 20 101/52 (68) 93 Nasal Cannula 2.00 09/05/18 20:00 95 Nasal Cannula 3.00 09/05/18 19:38 93 Nasal Cannula 2.00 09/05/18 16:00 97.0 77 20 113/58 (76) 94 Nasal Cannula 2.00 09/05/18 12:00 98.0 79 18 103/55 (71) 95 Nasal Cannula 2.00 I & O 09/06/18 07:00 Intake Total 2070 ml Output Total 1000 ml Balance 1070 ml Clinical Quality Measures DVT/VTE Risk/Contraindication: Risk Factor Score Per Nursin RFS Level Per Nursing on Admit: 4+=Very High MYLES CINTRON MD September 06, 2018 10:28
--- NOTE | 2018-09-06 10:31 | Discharge Summary ---
Diagnosis/Chief Complaint Date of Admission September 02, 2018 at 15:15 Date of Discharge Discharge Diagnosis Problems/Diagnosis: (1) RIGHT ANKLE FRACTURE Assessment & Plan: - Managed by Ortho POD#2 Status: Acute (2) Carpal tunnel syndrome, left Assessment & Plan: - Surgery last week by Dr Aranda Status: Acute (3) ARIAS on CPAP Assessment & Plan: - Home CPAP in room Status: Chronic (4) Hypertension Assessment & Plan: - Controlled Qualifiers: Qualified Codes: I10 - Essential (primary) hypertension Status: Chronic (5) Fall Qualifiers: Qualified Codes: W19.XXXA - Unspecified fall, initial encounter Status: Acute (6) Debility Assessment & Plan: - IRF to eval, patient unsteady Status: Acute Discharge Summary-Simple/Stand Consultations ALEE MESA MD Discharge Physical Examination Allergies: Coded Allergies: Penicillins (Unverified Allergy, Unknown, RASH, 12/01/13) Sulfa (Sulfonamide Antibiotics) (Verified Allergy, Unknown, RASH, 12/01/13) Vitals & I&Os Vital Sign - Last 12Hours Date Time Temp Pulse Resp B/P (MAP) Pulse Ox O2 Delivery O2 Flow Rate FiO2 09/06/18 09:50 98.4 09/06/18 08:00 95 Nasal Cannula 3.00 09/06/18 07:52 67 16 124/57 (79) Intake and Output 09/06/18 00:00 Intake Total 1920 ml Output Total 650 ml Balance 1270 ml Hospital Course See final discharge diagnosis. Discharge Instructions to patient/family Please see electronic discharge instructions given to patient. Discharge Medications Reviewed and agree with Discharge Medication list on patient's Discharge Instruction sheet Clinical Quality Measures DVT/VTE Risk/Contraindication: Risk Factor Score Per Nursin RFS Level Per Nursing on Admit: 4+=Very High JOSE LOYA MD September 06, 2018 10:31
[2018-09-06 10:50] VITALS: BP 124/57
== END 2018-09-06 10:48 | DRG 493 ==
LOC: EDUNIT# 12:55 → ER 12:56 → 4TH 15:15 → UNDOADMIN 15:15 → 4TH 09-05 12:37
PROVIDERS: ADMIT Internal Medicine; ATTEND Internal Medicine
PROC: 0QSJ04Z Reposition Right Fibula with Internal Fixation Device, Open Approach (ICD-10-PCS; 2018-09-03)
PROC: 0SSF04Z Reposition Right Ankle Joint with Internal Fixation Device, Open Approach (ICD-10-PCS; 2018-09-03)
PROC: 0QSG04Z Reposition Right Tibia with Internal Fixation Device, Open Approach (ICD-10-PCS; principal; 2018-09-03 07:50)
DX: S82.851A Displaced trimalleolar fracture of right lower leg, initial encounter for closed fracture (principal); S93.431A Sprain of tibiofibular ligament of right ankle, initial encounter; E11.9 Type 2 diabetes mellitus without complications; E66.01 Morbid (severe) obesity due to excess calories; Z68.41 Body mass index [BMI] 40.0-44.9, adult; I10 Essential (primary) hypertension; E78.5 Hyperlipidemia, unspecified; G47.33 Obstructive sleep apnea (adult) (pediatric); E03.9 Hypothyroidism, unspecified; F20.9 Schizophrenia, unspecified; F41.9 Anxiety disorder, unspecified; F32.9 Major depressive disorder, single episode, unspecified; F17.210 Nicotine dependence, cigarettes, uncomplicated; J44.9 Chronic obstructive pulmonary disease, unspecified; I65.29 Occlusion and stenosis of unspecified carotid artery; K59.00 Constipation, unspecified; M54.5 Low back pain; M54.6 Pain in thoracic spine; M25.50 Pain in unspecified joint; W19.XXXA Unspecified fall, initial encounter; Z99.81 Dependence on supplemental oxygen; Z98.890 Other specified postprocedural states; Z87.39 Personal history of other diseases of the musculoskeletal system and connective tissue; Z82.49 Family history of ischemic heart disease and other diseases of the circulatory system; Z88.0 Allergy status to penicillin; Z88.2 Allergy status to sulfonamides
CPT/HCPCS: 36415; 36600; 51702; 70450; 71045; 72125; 73600; 80048; 80053; 82805; 82962; 85025; 87081; 93041; 94640; 94760; 96374; 96375; 96376

== ENCOUNTER 2018-09-06 10:47 | Inpatient (IN) | payer MEDICARE, MEDICAID ==
[~2018-09-06] VITALS: Ht 149.9 cm; Wt 90.4 kg
--- NOTE | 2018-09-06 09:25 | PM&R H&P / Post Admit Assess ---
History of Present Illness HPI/Chief Complaint Chief Complaint: Right ankle fracture with severe debility HPI: This is a 58yoWF clinic Pt of [facility] who suffered a fall ans sustained a right ankle fracture one day following left CTR surgery by Dr. Fontenot at [facility], I actually admitted her over the weekend, she underwent an uncomplicated surgical repair by Dr. Leon and he will be continuing to monitory her progress and place a cast today. Due to the fact of her comorbidities and mental illness and ARIAS she has had a very slow recovery and will be in need of intensive therapy in order to regain enough function to return back home instead of a nursing facility. She did have significant drowsiness following surgery and it was a concern that her ARIAS would cause CO2 Narcosis. ABG was checked and that was stable. She did have a BM two days ago and overall her pain seems to be pretty much under control as long as she takes in on schedule. Her boyfriend is at the bedside and agrees with the plan. Her prior level of functioning was independent at home without the use of assistive devices. At this current time she does have weight bearing restrictions on the right ankle. Source: patient Exam Limitations: no limitations Date Seen 09/06/18 Time Seen by a Provider: 10:30 Attending Physician Maritza Gustafson DO [facility] Referring Physician Date of Admission Home Medications & Allergies Home Medications Reviewed patient Home Medication Reconciliation performed by pharmacy medication reconciliations telephone technician and/or nursing. Patients Allergies have been reviewed. Allergies Allergies Coded Allergies Penicillins (Unverified Allergy, Unknown, RASH, 12/01/13) Sulfa (Sulfonamide Antibiotics) (Verified Allergy, Unknown, RASH, 12/01/13) Past Bjwclun-Wmukho-Ghipcg Hx Past Med/Social Hx: Reviewed Nursing Past Med/Soc Hx, Reviewed and Corrections made Patient Social History Marrital Status: cohabiting Employed/Student: unemployed Smoking Status: Never a Smoker Type Used: Cigarettes Recent Hopitalizations: No Immunizations Up To Date Tetanus Booster (TDap): Unknown Date of Pneumonia Vaccine: Jan 24, 2010 Seasonal Allergies Seasonal Allergies: No Past Medical History Surgeries: Section, Gallbladder, Orthopedic Respiratory: Sleep Apnea Cardiac: Hypertension Endocrine: Hypothyroidsim, Diabetes, Non-Insulin dep, Lupus Psychosocial: Anxiety, Schizophrenia History of Blood Disorders: No Family History Arthritis 19 FATHER 19 MOTHER Asthma 19 MOTHER Colon cancer 19 MOTHER Diabetes mellitus G8 SISTER Myocardial infarction G8 BROTHER Thyroid disease 19 MOTHER No Family History of: AIDS Abdominal aortic aneurysm Alcoholism Completed stroke Drug abuse Gastroenteritis Hypertension Parkinson's disease Prostate cancer Psychosocial problem Respiratory disorder Seizure disorder Severe allergy Review of Systems Constitutional: see HPI, dizziness, malaise, weakness EENTM: no symptoms reported Respiratory: no symptoms reported Cardiovascular: no symptoms reported Gastrointestinal: no symptoms reported Genitourinary: no symptoms reported Musculoskeletal: joint pain, other (right ankle pain) Skin: no symptoms reported Psychiatric/Neurological: No Symptoms Reported All Other Systems Reviewed Negative Unless Noted: Yes Physical Exam Exam Vital Signs Vital Signs Date Time Temp Pulse Resp B/P (MAP) Pulse Ox O2 Delivery O2 Flow Rate FiO2 09/06/18 17:05 97.4 69 18 120/74 (89) 96 Nasal Cannula 2.00 Capillary Refill : General Appearance: No Apparent Distress, WD/WN, Chronically ill, Obese HEENT: PERRL/EOMI, Normal ENT Inspection, Pharynx Normal, Moist Mucous Membranes Neck: Full Range of Motion, Normal Inspection, Non Tender, Supple Respiratory: Chest Non Tender, Lungs Clear, Normal Breath Sounds, No Accessory Muscle Use, No Respiratory Distress Cardiovascular: Regular Rate, Rhythm, No Edema, No Gallop, No JVD, No Murmur Gastrointestinal: Normal Bowel Sounds, No Organomegaly, No Pulsatile Mass, Non Tender, Soft Back: Normal Inspection, No CVA Tenderness, No Vertebral Tenderness Extremity: Normal Capillary Refill, Normal Inspection, Normal Range of Motion ( except right ankle/leg due to cast), Non Tender, No Calf Tenderness, No Pedal Edema Neurologic/Psychiatric: Alert, Oriented x3, No Motor/Sensory Deficits (except right leg from cast in place but moves toes on command), Normal Mood/Affect Skin: Normal Color, Warm/Dry Lymphatic: No Adenopathy Results Results/Procedures Labs Patient resulted labs reviewed. Assessment/Plan Assessment and Plan Assess & Plan/Chief Complaint Assessment: Debility Right ankle fracture s/p repair POD # [address] Fontenot last week Schizophrenia ARIAS on CPAP HTN Obesity DVT PPx Plan: IRF protocols Pain control Lovenox for DVT PPx CPAP BM regimen (1) RIGHT ANKLE FRACTURE (2) Debility (3) ARIAS on CPAP (4) Oxygen dependent (5) Hypertension (6) Schizophrenia (7) Carpal tunnel syndrome, left (8) Fall (9) Medial malleolar fracture (10) Fibula fracture (11) Hypothyroidism (12) Diabetes mellitus Post Admission Physician Asses Date seen by provider: September 06, 2018 Time seen by provider: 10:30 Admisison Dx: (1) RIGHT ANKLE FRACTURE Status: Acute (2) Debility Status: Acute (3) Schizophrenia Status: Chronic (4) Hypertension Status: Chronic (5) Oxygen dependent Status: Chronic (6) Carpal tunnel syndrome, left Status: Acute (7) ARIAS on CPAP Status: Chronic (8) Fall Status: Acute (9) Fibula fracture Status: Acute (10) Medial malleolar fracture Status: Acute (11) Diabetes mellitus (12) Hypothyroidism The preadmission screen agrees with the post admission assessment that the patient is a good candidate for inpatient rehabilitation. The patient will have a comprehensive program of inpatient rehabilitation with a goal of maximizing level of functional independence prior to discharge home with family. The patient will have PT/OT ninety minutes per day, each discipline, five days a week for gait, strengthening, conditioning, balance, ADLs, any patient/family/caregiver training as necessary. Speech therapy to do cognitive assessment and treat as indicated. Rehabilitation nursing to assist with bowel, bladder, skin, wound care, medication administration, pain management. Float Operator to assist with discharge planning, community reentry. SCD's for DVT prophylaxis. She appears to be well motivated to participate in three hours of therapy a day. She should be able to tolerate three hours of therapy a day from a medical standpoint. She should benefit from the three hours of therapy a day. She has a reasonable discharge plan, reasonable discharge rehabilitation goals and a supportive family. She has various comorbidities that need to be closely monitored with medications and treatments adjusted on a daily basis as needed. These include: see list Barriers to discharge for this patient who had been independent prior to this are for her to be modified independent to supervision for ADLs and mobility skills prior to discharge home with family, so as to lessen the burden of the caregivers. Risks for this patient include: 1. Fall 2. Fracture 3. DVT 4. Pulmonary embolism 5. Wound infection 6. Skin breakdown 7. Contractures 8. Poorly controlled pain 9. Urinary retention 10. UTI 11. Respiratory infection 12. Aspiration Estimated Length of Stay: 10 days Prognosis: Rehab prognosis appears good for goal of discharge home with family modified independent to supervision for ADLs and mobility skills. MARITZA GUSTAFSON DO September 06, 2018 09:25
[~2018-09-06 10:47] MED LIST changes: +ALBU18HF2 INH; +AMLO10TA7 PO; +ATOR40TA70 PO; +CYCL1DRO OU; +DESM0.2T29 PO; +DULA0.75 SC; +ESTR2TAB PO; +FLUT16SP22 NS; +FLUT1AER INH; +GBPN600T PO; +HYDR-3816 PO; +HYDR50TA76 PO; +IMIP50TA4 PO; +LOXA10CA PO; +METF-399 PO; +MIRA50TA PO; +MONT10TA24 PO; +MULT-974 PO; +OMG1KC PO; +PALI234D INJ; +PANT40TA3 PO; +RT-ALBUINH INH; +SITA50TA PO; +SPIR50TA4 PO; +SUMA50TA2 PO; +TRAM50TA2 PO; +TRAZ-190 PO; +TRIA15CR TOP
--- NOTE | 2018-09-06 10:48 | NUR ---
WILL AMARO admitted to room 224, with an admitting diagnosis of RIGHT ANKLE FX AND RECENT CARPAL TUNNEL RELEASE, on 09/06/18 from [facility]LO[facility] via WHEELCHAIR, accompanied by THERAPY. WILL AMARO introduced to surroundings, call light, bed controls, phone, TV, temperature control, lights, meal times, smoking policy, visitor policy, side rail policy, bathrooms and showers. Patient Rights given to patient in the handbook. WILL AMARO verbalizes understanding that [facility] is not responsible for the loss or damage to any personal effects or valuables that are kept in the patient's possession during their hospitalization. The following Patient Care Plans were discussed with the PATIENT: Discharge Planning, PAIN, IMPAIRED MOBILITY, HIGH RISK: INFECTION, HIGH RISK: IMPAIRED SKIN INTEGRITY, and KNOWLEDGE DEFICIT. WILL AMARO verbalizes understanding of Interdisciplinary Patient Education. Patient received Patient Rights Booklet, which includes Privacy Act Statement and Data Collection Information Summary.
[2018-09-06] MEDS ORDERED: PATIENT MAY USE OWN MEDS, ALL MC SCH (11:30)
[2018-09-06] MEDS ORDERED: ARTIFICAL TEARS 0.4 ML UNIT DOSE (REFRESH PLUS) OU PRN (11:30)
[2018-09-06] MEDS ORDERED: BISACODYL 10 MG SUPP (DULCOLAX) PR PRN (11:30)
[2018-09-06] MEDS ORDERED: traZODone 50 MG (DESYREL) TAB PO PRN (11:30)
[2018-09-06] MEDS ORDERED: ONDANSETRON 4 MG/2 ML (SDV) Z0FRAN IV PRN (11:30)
[2018-09-06 11:34] VITALS: BP 97/58
--- NOTE | 2018-09-06 11:37 | Physical Therapy Evaluation ---
PT Evaluation-General Medical Diagnosis Admission Date September 06, 2018 at 10:47 Medical Diagnosis: (R) ankle fx Onset Date: September 02, 2018 Therapy Diagnosis Therapy Diagnosis: impaired mobility, strength, endurance, balance Height/Weight Height (Feet): 4 Height (Inches): 11.00 Weight (Pounds): 198 Weight (Ounces): 0.0 Weight Bear Status Non Weight Bearing also NWB on LUE Referral Physician: Maritza Gustafson DO Reason for Referral: Evaluation/Treatment Medical History Pertinent Medical History: COPD Additional Medical History schizophrenia, lupus, anxiety Social History Home: Single Level Current Living Status: Significant Other Entry Into Home: Stairs Without Railing PT Steps Into Home: 1 Prior/Core FIM Prior Level of Function Therapy Code Descriptions/Definitions Functional [place] Measure: 0=Not Assessed/NA 4=Minimal Assistance 1=Total Assistance 5=Supervision or Setup 2=Maximal Assistance 6=Modified [place] 3=Moderate Assistance 7=Complete [place] Therapy Quality Codes: 6 Independent with activity with or without an assistive device 5 Patient requires set up or clean up by helper. Patient completes activity by themselves 4 Supervision or touching assist (CGA). [place] provide cues , steadying assist 3 The helper provides less than half the effort to complete the activity 2 The helper provides more than half the effort to complete the activity 1 Dependent. The helper does all the effort to complete an activity 7 Patient refused to complete or attempt activity 9 The patient did not perform the activity before the current illness or injury 88 Not attempted due to Medical conditions or safety concerns Functional Abilities and Goals: Independent: Patient completed the activities by him/herself, with or without an assistive device, with no assistance from a helper. Needed Some Help: Patient needed partial assistance from another person to complete activities. Dependent: A helper completed the activities for the patient. Unknown: Not Applicable: Bed Mobility: 6 Transfers (B,C,W/C) (FIM): 6 Gait: 6 Stairs: 6 Indoor Mobility (Ambulation): Independent Stairs: Independent Prior Device Use: cane PT Evaluation-Current Subjective Patient in bed pre tx, agrees to PT. When asked how patient is doing she says "terrible". Patient has 10/10 pain in right ankle, nurse is aware of pain. She got a cast put on her leg just a little while ago. Pt/Family Goals "to be independent at home Objective Patient Orientation: Person, Place Attachments: Oxygen 2L of O2 nasal canula ROM/Strength ROM Lower Extremities WNL except for right ankle Strenght Lower Extremities 4/5 gross LLE, RLE NT Neuromuscular (Tone, Coordination, Reflexes) NT Sensory Vision: Wears Glasses Hearing: Functional Sensation Right Lower Extremit: Intact Sensation Left Lower Extremity: Intact Sensation Lower Extremities Right toes specifically tested since she just got a cast and she has intact light touch sensation. Transfers Therapy Code Descriptions/Definitions Functional [place] Measure: 0=Not Assessed/NA 4=Minimal Assistance 1=Total Assistance 5=Supervision or Setup 2=Maximal Assistance 6=Modified [place] 3=Moderate Assistance 7=Complete [place] Therapy Quality Codes: 6 Independent with activity with or without an assistive device 5 Patient requires set up or clean up by helper. Patient completes activity by themselves 4 Supervision or touching assist (CGA). [place] provide cues , steadying assist 3 The helper provides less than half the effort to complete the activity 2 The helper provides more than half the effort to complete the activity 1 Dependent. The helper does all the effort to complete an activity 7 Patient refused to complete or attempt activity 9 The patient did not perform the activity before the current illness or injury 88 Not attempted due to Medical conditions or safety concerns Transfers (B, C, W/C) (FIM): 4 Scootin Rollin Roll Left to Right (QC): 4 Supine to/from Sit: 5 Sit to/from Stand: 4 bed t/f WC(FIM only if WC use): 3 Sit to Lying (QC): 4 Lying to Sitting/Side of Bed(Q: 4 Sit to Stand (QC): 3 Chair/Prv-vb-Ejhfw Xfer(QC): 3 Car Transfer (QC): 3 Patient performs bed mobility with SBA, supine <-> sit with SBA, sit <-> stand with min assist, transfers with min assist using a platform walker, car transfer min assist. Patient needs cues for hand placement and will often sit without reaching back. Gait Does the Patient Walk?: Yes Mode of Locomotion: Walk Anticipated Mode of Locomotion: Walk Gait (FIM): 1 Distance: 2' Gait Level of Assist: 4 Gait Persons Needed: 1 Gait Assistive Device: Walker Platform Comments/Gait Description Patient ambulated 2' with a platform walker with CGA. She was only able to hop a couple of inches at a time and had no real foot clearance. Patient states that she is compliant with her weight bearing status on the right leg but she seems to maybe bear just a little weight through it. Wheelchair Training Does the Pt Use a Wheelchair?: Yes Wheelchair (FIM): 1 Type of Wheelchair: Manual Stairs Stairs (FIM): 88 If not tested on admit;explain Patient is not able to hop onto a step at this time with her left leg and her right leg is NWB. Balance Sitting Static: Normal Sitting Dynamic: Normal Standing Static: Fair Standing Dynamic: Fair Treatment Seated exercises x20 (toe flex/ext on the right side, AP on the left side, LAQ, hip flexion), patient was also dressed in a different gown and she needed to use the restroom so she performed a toilet transfer with min assist. OT took over for their evaluation from there. Assessment/Needs Patient has impaired mobility, strength, endurance, balance post right ankle fx. She is NWB on right LE and left UE. She needs min assist for sit to stand and transfers. Rehab Potential: Fair PT Short Term Goals Short Term Goals Time Frame: September 13, 2018 Transfers (B,C,W/C) (FIM): 4 (CGA) Gait (FIM): 1 Gait Distance Comment: 10' Gait Level of Assist: 4 Gait Assistive Device: Walker Platform PT Care Home Goals Care Home Goals PT Reviewer Sales Goals Time Frame: Sep 27, 2018 Transfers (B,C,W/C) (FIM): 5 Sit to Lying (QC): 6 Lying-Sitting on Side/Bed(QC): 6 Sit to Stand (QC): 4 Rollin Roll Left to Right (QC): 6 Chair/Dpf-mc-[id number] Xfer(QC): 4 Car Transfer (QC): 4 Gait (FIM): 1 Distance: 20' Walk 10 feet (QC): 4 Walk 10ft-Uneven Surface(QC): 4 Gait Level of Assist: 4 Gait Assistive Device: Walker Platform Wheelchair (FIM): 5 Distance: 150' Wheelchair Level of Assist: 5 Wheel 50 feet with 2 turns (QC: 4 Stairs (FIM): 1 # of Steps: 1 1 Step (curb) (QC): 3 PT Plan Problem List Problem List: Activity Tolerance, Functional Strength, Safety, Balance, Gait, Transfer, Bed Mobility Treatment/Plan Treatment Plan: Continue Plan of Care Treatment Plan: Bed Mobility, Concurrent Therapy, Education, Functional Activity Nubia, Functional Strength, Group Therapy, Gait, Safety, Therapeutic Exercise, Transfers Treatment Duration: Sep 27, 2018 Frequency: At least 5 of 7 days/Wk (IRF) Estimated Hrs Per Day: 1.5 hours per day Patient and/or Family Agrees t: Yes Safety Risks/Education Patient Education: Gait Training, Transfer Techniques, Reviewed Precautions, Correct Positioning, W/C Management, Safety Issues Teaching Recipient: Patient Teaching Methods: Demonstration, Discussion Response to Teaching: Reinforcement Needed Discharge Recommendations Plan Patient will perform bed mobility and transfer training, balance and endurance training, functional strengthening, stair training, gait training, and education , to improve functional mobility and independence at home. Therapy D/C Recommendations: Home w/ Family Support, Snf (TCU/NH) Time/GCodes Time In: 1030 Time Out: 1130 Total Billed Treatment Time: 60 Total Billed Treatment 1 visit EVM 30' EX 10' FA 20' MERISSA BERMAN PT September 06, 2018 11:37
[2018-09-06] MEDS: HYDROcodone/APAP 5 MG/325 MG (LORTAB) TAB PO PRN ×3 (13:28→22:09)
--- NOTE | 2018-09-06 14:15 | NUR ---
Patient states that she no longer takes Januvia since starting weekly Trulicity injections. Dr. Gustafson notified. Ok to MOLLY Garcia (hospital sub for Januvia) and start Trulicity. Patient's bringing Trulicity from home.
--- NOTE | 2018-09-06 14:16 | Occupational Therapy Eval ---
OT Evaluation-General/PLF Medical Diagnosis Admission Date September 06, 2018 at 10:47 Medical Diagnosis: (R) ankle fx Onset Date: September 02, 2018 Therapy Diagnosis Therapy Diagnosis: decreased self care skills Height/Weight Height (Feet): 4 Height (Inches): 11.00 Weight (Pounds): 208 Weight (Ounces): 3.0 Precautions Precautions/Isolations: Fall Prevention, Standard Precautions Weight Bear Status Weight Bearing Restriction: Non Weight Bearing (right LE and left wrist) Referral Physician: Maritza Gustafson DO Medical History Pertinent Medical History: COPD, DM, HTN, Hypothroidism Additional Medical History sleep apnea, lupus, anxiety, schizophrenia Current History Pt had a fall resulting in right ankle fracture. S/p ORIF and is NWB right LE. Pt had recent left carpal tunnel surgery (09/01) and is NWB on wrist. Is using platform walker. Social History Home: Single Level Current Living Status: Significant Other Entry Into Home: Stairs Without Railing Steps Into Home: 1 ADL-Prior Level of Function Therapy Code Descriptions/Definitions Functional [place] Measure: 0=Not Assessed/NA 4=Minimal Assistance 1=Total Assistance 5=Supervision or Setup 2=Maximal Assistance 6=Modified [place] 3=Moderate Assistance 7=Complete [place] Therapy Quality Codes: 6 Independent with activity with or without an assistive device 5 Patient requires set up or clean up by helper. Patient completes activity by themselves 4 Supervision or touching assist (CGA). [place] provide cues , steadying assist 3 The helper provides less than half the effort to complete the activity 2 The helper provides more than half the effort to complete the activity 1 Dependent. The helper does all the effort to complete an activity 7 Patient refused to complete or attempt activity 9 The patient did not perform the activity before the current illness or injury 88 Not attempted due to Medical conditions or safety concerns Functional Abilities and Goals: Independent: Patient completed the activities by him/herself, with or without an assistive device, with no assistance from a helper. Needed Some Help: Patient needed partial assistance from another person to complete activities. Dependent: A helper completed the activities for the patient. Unknown: Not Applicable: ADL PLOF Comments Pt reports being independent with basic self care prior to admission. Pt states she has a home health aide that assists mostly with housekeeping tasks. Was using a quad cane for mobility. Drive Self: Yes OT Current Status Subjective Pt agrees to therapy this am. Pt reports 10/10 pain in right ankle. RN aware. Mental Status/Objective Patient Orientation: Person, Place, Situation Attachments: Oxygen (2L) Current Glasses/Contacts: Yes Hearing Aids: No Dentures/Partials: No Hand Dominance: Right Upper Extremity ROM Right UE WFL. Left shoulder and elbow WFL. Left wrist is in a splint secondary to recent carpal tunnel surgery Upper Extremity Coordination Right UE WFL Upper Extremity Sensation Pt reports tingling in left fingers Upper Extremity Strength Right UE grossly 4/5. ADL-Treatment ADL-Current Pt in restroom when therapist arrives. Pt required assist for toileting hygiene. Sit to stand and transfer to w/c with minimal assistance using platform FWW. Pt participated in evaluation while seated in w/c. Pt reports fatigue and requests to get into bed. Sit to stand and transfer to EOB with minimal assistance using platform FWW, cues for NWB right LE. Sit to supine with SBA. Pt able to position self in bed. Pt resting in bed with needs met after session. Eating (FIM): 5 (Pt reports feeding self after set up) Eating (QC): 5 Toilet/Commode Transfer (FIM): 4 Toilet Transfer (QC): 3 Education OT Patient Education: Rehab process Teaching Recipient: Patient Teaching Methods: Discussion Response to Teaching: Verbalize Understanding OT Short Term Goals Short Term Goals Time Frame: September 13, 2018 Bathing(FIM): 4 Lower Body Dressing(FIM): 4 Toileting(FIM): 4 Toilet/Commode Transfer(FIM): 4 (CGA) Additional Short Term Goals: 1-Demonstrate ADL Tasks, 2-Verbalize Understanding , 3-ImproveStrength/Nubia 1=Demonstrate adherence to instructed precautions during ADL tasks. 2=Patient will verbalize/demonstrate understanding of assistive devices/ modifications for ADL. 3=Patient will improve strength/tolerance for activity to enable patient to perform ADL's. OT Senior Living Goals Storage And Backup Administrator Goals Time Frame: Sep 27, 2018 Eating (FIM): 7 Eating (QC): 6 Groomin Oral Hygiene (QC): 6 Bathing(FIM): 5 Shower/Bathe Self (QC): 5 Upper Body Dressing(FIM): 6 Upper Body Dressing (QC): 6 Lower Body Dressing(FIM): 5 Lower Body Dressing (QC): 5 On/Off Footwear (QC): 5 Toileting(FIM): 5 Toileting Hygiene (QC): 5 Toilet/Commode Transfer(FIM): 5 Toilet/Commode Transfer (QC): 5 Shower Transfer(FIM): 5 Additional Goals: 1-Demonstrate ADL Tasks, 2-Verbalize Understanding, 3- ImproveStrength/Nubia 1=Demonstrate adherence to instructed precautions during ADL tasks. 2=Patient will verbalize/demonstrate understanding of assistive devices/ modifications for ADL. 3=Patient will improve strength/tolerance for activity to enable patient to perform ADL's. OT Education/Plan Problem List/Assessment Assessment: Decreased Activ Tolerance, Decreased UE Strength, Dependent Transfers, Impaired Funct Balance, Impaired I ADL's, Impaired Self-Care Skills Pt to benefit from skilled OT intervention for ADL training, transfers, strengthening, and safety education to increase level of independence and allow safe discharge. Discharge Recommendations Plan/Recommendations: Continue POC Treatment Plan/Plan of Care Treatment,Training & Education: Yes Patient would benefit from OT for education, treatment and training to promote independence in ADL's, mobility, safety and/or upper extremity function for ADL' s. Plan of Care: ADL Retraining, Functional Mobility, Group Exercise/Act as Ind, UE Funct Exercise/Act Treatment Duration: Sep 27, 2018 Frequency: At least 5 of 7 days/Wk (IRF) Estimated Hrs Per Day: 1.5 hours per day Agreement: Yes Rehab Potential: Fair Time/GCodes Start Time: 11:30 Stop Time: 12:00 Total Time Billed (hr/min): 30 Billed Treatment Time 1 visit, EVM(20minutes), ADL(10minutes) BENNIE BUSBY OT September 06, 2018 14:16
--- NOTE | 2018-09-06 14:28 | Occupational Ther Daily Note ---
OT Current Status-Daily Note Subjective Pt in bed, agrees to therapy. Mental Status/Objective Therapy Code Descriptions/Definitions Functional [place] Measure: 0=Not Assessed/NA 4=Minimal Assistance 1=Total Assistance 5=Supervision or Setup 2=Maximal Assistance 6=Modified [place] 3=Moderate Assistance 7=Complete [place] Attachments: Oxygen ADL-Treatment Pt supine to sit with SBA. Transfer to chair with minimal assistance using platform FWW, cues for NWB right LE. Sponge bath completed seated in chair. Upper body bathing completed with SBA. Mod assist for lower body bathing. Right lower leg not addressed secondary to cast. Pt declined to don shirt at this time , donned gown with set up. Pt required assist to thread bilateral LE into underwear. Stood with min assist. Pt able to pull underwear up over right hip, but required assist on left side. Pt required assist to doff/don left sock. Pt brushed teeth with minimal assistance while seated in chair. Pt transferred to w /c with min assist. To restroom via w/c. Transfer w/c <-> toilet with minimal assistance using platform walker. Pt required assist for clothing management, but was able to complete toileting hygiene. Used wipes to wash hands after toileting. Pt requires increased time for ADL tasks. Sitting in w/c with needs met after session. Therapy Code Descriptions/Definitions Functional [place] Measure: 0=Not Assessed/NA 4=Minimal Assistance 1=Total Assistance 5=Supervision or Setup 2=Maximal Assistance 6=Modified [place] 3=Moderate Assistance 7=Complete [place] Therapy Quality Codes: 6 Independent with activity with or without an assistive device 5 Patient requires set up or clean up by helper. Patient completes activity by themselves 4 Supervision or touching assist (CGA). [place] provide cues , steadying assist 3 The helper provides less than half the effort to complete the activity 2 The helper provides more than half the effort to complete the activity 1 Dependent. The helper does all the effort to complete an activity 7 Patient refused to complete or attempt activity 9 The patient did not perform the activity before the current illness or injury 88 Not attempted due to Medical conditions or safety concerns Oral Hygiene (QC): 4 Bathing (FIM): 3 Shower/Bathe Self (QC): 3 Lower Body Dressing (FIM): 3 Toileting (FIM): 2 Toileting Hygiene (QC): 2 Toilet/Commode Transfer (FIM): 4 Toilet Transfer (QC): 3 OT Short Term Goals Short Term Goals Time Frame: September 13, 2018 Bathing(FIM): 4 Lower Body Dressing(FIM): 4 Toileting(FIM): 4 Toilet/Commode Transfer(FIM): 4 (CGA) Additional Short Term Goals: 1-Demonstrate ADL Tasks, 2-Verbalize Understanding , 3-ImproveStrength/Nubia 1=Demonstrate adherence to instructed precautions during ADL tasks. 2=Patient will verbalize/demonstrate understanding of assistive devices/ modifications for ADL. 3=Patient will improve strength/tolerance for activity to enable patient to perform ADL's. OT Senior Living Goals Senior Living Goals Time Frame: Sep 27, 2018 Eating (FIM): 7 Eating (QC): 6 Groomin Oral Hygiene (QC): 6 Bathing(FIM): 5 Shower/Bathe Self (QC): 5 Upper Body Dressing(FIM): 6 Upper Body Dressing (QC): 6 Lower Body Dressing(FIM): 5 Lower Body Dressing (QC): 5 On/Off Footwear (QC): 5 Toileting(FIM): 5 Toileting Hygiene (QC): 5 Toilet/Commode Transfer(FIM): 5 Toilet/Commode Transfer (QC): 5 Shower Transfer(FIM): 5 Additional Goals: 1-Demonstrate ADL Tasks, 2-Verbalize Understanding, 3- ImproveStrength/Nubia 1=Demonstrate adherence to instructed precautions during ADL tasks. 2=Patient will verbalize/demonstrate understanding of assistive devices/ modifications for ADL. 3=Patient will improve strength/tolerance for activity to enable patient to perform ADL's. OT Education/Plan Problem List/Assessment Pt to benefit from skilled OT intervention for ADL training, transfers, strengthening, and safety education to increase level of independence and allow safe discharge. Discharge Recommendations Plan/Recommendations: Continue POC Treatment Plan/Plan of Care Patient would benefit from OT for education, treatment and training to promote independence in ADL's, mobility, safety and/or upper extremity function for ADL' s. Plan of Care: ADL Retraining, Functional Mobility, Group Exercise/Act as Ind, UE Funct Exercise/Act Treatment Duration: Sep 27, 2018 Frequency: At least 5 of 7 days/Wk (IRF) Estimated Hrs Per Day: 1.5 hours per day Agreement: Yes Rehab Potential: Fair Time/GCodes Start Time: 13:00 Stop Time: 14:00 Total Time Billed (hr/min): 60 Billed Treatment Time 1 visit, ADLx4(60minutes) BENNIE BUSBY OT September 06, 2018 14:28
[2018-09-06] MEDS: CATHETER FLUSH 10 ML SYR IV SCH ×2 (14:38→22:53)
--- NOTE | 2018-09-06 14:40 | Physical Therapy Daily Note ---
PT Daily Note-Current Subjective Patient in wheelchair pre tx, agrees to PT, has 6/10 pain in right ankle. Appearance Patient in bed post tx with nurse call, phone, tray, all needs met. Mental Status Patient Orientation: Person, Place Attachments: Oxygen Transfers Therapy Code Descriptions/Definitions Functional [place] Measure: 0=Not Assessed/NA 4=Minimal Assistance 1=Total Assistance 5=Supervision or Setup 2=Maximal Assistance 6=Modified [place] 3=Moderate Assistance 7=Complete [place] Therapy Quality Codes: 6 Independent with activity with or without an assistive device 5 Patient requires set up or clean up by helper. Patient completes activity by themselves 4 Supervision or touching assist (CGA). [place] provide cues , steadying assist 3 The helper provides less than half the effort to complete the activity 2 The helper provides more than half the effort to complete the activity 1 Dependent. The helper does all the effort to complete an activity 7 Patient refused to complete or attempt activity 9 The patient did not perform the activity before the current illness or injury 88 Not attempted due to Medical conditions or safety concerns Transfers (B, C, W/C) (FIM): 4 Scootin Rollin Supine to/from Sit: 5 Sit to/from Stand: 4 Bed to/from Chair: 4 Patient performed 3 stand pivot transfers during treatment. Very slow transfers , she is not able to pivot on her left leg all at once but just a little bit at a time. Cues for hand placement when sitting and standing. Weight Bearing Right Lower Extremity: Right Non Weight Bearing Left Lower Extremity: Left Full Weight Bearing (L) hand NWB due to recent carpal tunnel release also NWB on LUE Wheelchair Training Does the Pt Use a Wheelchair?: Yes Wheelchair (FIM): 1 Type of Wheelchair: Manual Exercises NuStep Minutes: 15 NuStep Workload: 4 (used only left leg and right arm) Treatments bed mobility and transfers, functional strengthening Assessment Current Status: Fair Progress improving transfers PT Short Term Goals Short Term Goals Time Frame: September 13, 2018 Gait (FIM): 1 Gait Distance Comment: 10' Gait Level of Assist: 4 Gait Assistive Device: Walker Platform PT Binder And Wrapper Packer Goals Binder And Wrapper Packer Goals PT Binder And Wrapper Packer Goals Time Frame: Sep 27, 2018 Transfers (B,C,W/C) (FIM): 5 Sit to Lying (QC): 6 Lying-Sitting on Side/Bed(QC): 6 Sit to Stand (QC): 4 Rollin Roll Left to Right (QC): 6 Chair/[id number]-Rfrbx Xfer(QC): 4 Car Transfer (QC): 4 Gait (FIM): 1 Distance: 20' Walk 10 feet (QC): 4 Walk 10ft-Uneven Surface(QC): 4 Gait Level of Assist: 4 Gait Assistive Device: Walker Platform Wheelchair (FIM): 5 Distance: 150' Wheelchair Level of Assist: 5 Wheel 50 feet with 2 turns (QC: 4 Stairs (FIM): 1 # of Steps: 1 1 Step (curb) (QC): 3 PT Plan Problem List Problem List: Activity Tolerance, Functional Strength, Safety, Balance, Gait, Transfer, Bed Mobility, ROM Treatment/Plan Treatment Plan: Continue Plan of Care Treatment Plan: Bed Mobility, Concurrent Therapy, Education, Functional Activity Nubia, Functional Strength, Group Therapy, Gait, Safety, Therapeutic Exercise, Transfers Treatment Duration: Sep 27, 2018 Frequency: At least 5 of 7 days/Wk (IRF) Estimated Hrs Per Day: 1.5 hours per day Patient and/or Family Agrees t: Yes Safety Risks/Education Patient Education: Transfer Techniques, Correct Positioning, Safety Issues Teaching Recipient: Patient Teaching Methods: Demonstration, Discussion Response to Teaching: Reinforcement Needed Time/GCodes Time In: 1410 Time Out: 1440 Total Billed Treatment Time: 30 Total Billed Treatment 1 visit EX 15' FA 15' MERISSA BERMAN PT September 06, 2018 14:40
[2018-09-06] MEDS: KETOROLAC 15 MG/ML VIAL IV PRN (14:41)
--- NOTE | 2018-09-06 15:34 | ST Cognitive Linguistic Eval ---
Speech Evaluation-General Medical Diagnosis (R) ankle fx Onset Date: September 02, 2018 Therapy Diagnosis Therapy Diagnosis: Cognitive-communication Precautions Precautions/Isolations: Fall Prevention, Standard Precautions Referral Referring Physician: Dr. Gustafson Medical History Pertinent Medical History: COPD, DM, HTN, Hypothroidism Reviewed History: Yes Social History Current Living Status: Significant Other Speech PLF-Current Status Prior Level of Function The patient lives at home with her significant other. She was independent for most of her daily needs. Subjective The patient was compliant with the cognitive-communication evaluation. Language Eval: Auditory Comprehends Simple Yes/No Ques: Functional Indent/Objects Multiple Mann: Functional Ident/Pics in Multiple Mann: Functional Follows 1-Step Commands: Functional Follows Complex Directions: Functional Follows General Conversations: Functional Language Eval: Verbal Language Completes Spontaneous Greeting: Functional Produces Auto, Serial Info: Functional Imitates Simple Words/Phrases: Functional Word Finding: Functional Requests Basic Needs: Functional States Basic Personal Info: Functional Expresses Complex Ideas: Functional Objective Cognitive Domain Attention: WNL Memory: WNL Problem Solving: Functional Executive Functions: WNL Visuospatial Skills: WNL Composite Severity Rating: WNL Clock Drawing Severity Rating: WNL Objective Formal/Standardized Tests [facility] Mental Status ([facility]) Results The patient scored within normal range for all areas tested at 28/30 Oral Motor/Speech Production Within Functional Limits Impression The patient is a pleasant 58 year old female who was admitted to the ARU s/p fractured ankle which is currently in a cast. The patient exhibits a good memory and cognitive level for participating in her therapy. Communication/Social Cognition Comprehension: 7 Expression: 7 Social Interaction: 7 Problem Solvin Memory: 7 Speech Patient Assess Expression of Ideas/Wants: Expression (4) Understanding Verbal Content: Understands (4) Brief Interview-Mental Status: Yes Repetition of Three Words: Three (3) Temporal Orientation: Year: Correct (3) Temporal Orientation: Month: Accurate within 5 days(2) Recall : Wear to say "Sock": Yes, no cue required (2) Recall : Color: Yes, no cue required (2) Recall : Bed: Yes, no cue required (2) Memory/Recall Ability: Current season, Location of own room, That he or she is in a hsp/hsp unit Speech-Plan Patient/Family Goals Patient/Family Goals: The patient plans on returning home with her significant other post rehab. Treatment Plan Speech Therapy Treatment Plan: Discontinue ST The patient does not require skilled ST services at this time. Treatment Duration: September 06, 2018 Frequency: 1 time per week Estimated Hrs Per Day: .25 hour per day Rehab Potential: Fair Barriers to Learning: None identified Pt/Family Agrees to Plan: Yes Safety Risks/Education Teaching Recipient: Patient Teaching Methods: Discussion Response to Teaching: Verbalize Understanding Education Topics Provided: Safety within her room, utilization of the call light. Time Speech Therapy Time In: 14:45 Speech Therapy Time Out: 15:00 Total Billed Time: 15 Billed Treatment Time 1, SPSNDCOMP MARIA ELENA Finley September 06, 2018 15:34
[2018-09-06] MEDS: metFORMIN 500 MG (GLUCOPHAGE) TAB PO SCH (16:29)
[2018-09-06] MEDS: inSUlin ASPART (NovoLOG) 1 UNIT/0.01 ML (CHARGE PER UNIT) SC SCH ×2 (16:29→21:45)
[2018-09-06 17:05] VITALS: BP 120/74
--- NOTE | 2018-09-06 19:24 | NUR ---
bedside report received from MENDY OCHOA, assume care of pt
[2018-09-06] MEDS: RT-ADVAIR HFA 115/21 MCG PER PUFF IH SCH (20:12)
[2018-09-06] MEDS ORDERED: RT-ALBUTEROL SULF 2.5 MG/3 ML PRE-MIX VIAL INH SCH (21:00)
--- NOTE | 2018-09-06 21:00 | NUR ---
assessments & interventions completed, see assessments & interventions, fsbs 155 no ss insulin req, up to commode with 1 person assist & platform walker
--- NOTE | 2018-09-06 21:10 | NUR ---
c/o pain to rt leg level 8/10 on numeric scale given lortab 5 1 tab po
--- NOTE | 2018-09-06 21:25 | NUR ---
Vistaril 50mg po held due to low b/p 95/53
[2018-09-06 21:42] VITALS: BP 95/53
--- NOTE | 2018-09-06 21:45 | NUR ---
rates pain at 2/10 on numeric scale, cpap on
[2018-09-06] MEDS: traZODone 150 MG (DESYREL) TABLET PO SCH (21:56)
[2018-09-06] MEDS: LACTULOSE SYRUP 10GM/15ML (ENULOSE) 30ML UDC PO SCH (21:56)
[2018-09-06] MEDS: ATORVASTATIN 40 MG (LIPITOR) TABLET PO SCH (21:56)
[2018-09-06] MEDS: MYRBETRIQ 50 MG TABLET PO SCH (22:00)
[2018-09-06] MEDS ORDERED: DULAGLUTIDE 0.75 MG/0.5 ML SQ SCH (22:00)
[2018-09-06] MEDS ORDERED: PATIENT MAY USE OWN MED,SINGLE MED SQ SCH (22:00)
[2018-09-06] MEDS: SENNA W/DOCUSATE (SENOKOT S) TABLET PO SCH (22:03)
[2018-09-06] MEDS: hydrOXYzine (VISTARIL) 25 MG capsule/tablet PO SCH (22:03)
[2018-09-06] MEDS: ENOXAPARIN 40 MG/0.4 ML (LOVENOX) SYR SC SCH (22:05)
[2018-09-07 04:58] LABS: BASOPHILS % (AUTO) 0 % (0-10); EOSINOPHILS # (AUTO) 0.3 10^3/uL (0.0-0.3); EOSINOPHILS % (AUTO) 3 % (0-10); HEMATOCRIT 39 % (35-52); HEMOGLOBIN 12.6 G/DL (11.5-16.0); LYMPHOCYTES # (AUTO) 1.9 X 10^3 (1.0-4.0); LYMPHOCYTES % (AUTO) 21 % (12-44); MEAN CORPUSCULAR HEMOGLOBIN 30 PG (25-34); MEAN CORPUSCULAR HGB CONC 33 G/DL (32-36); MEAN CORPUSCULAR VOLUME 91 FL (80-99); MEAN PLATELET VOLUME 9.7 FL (7.4-10.4); MONOCYTES % (AUTO) 10 % (0-12); NEUTROPHILS # (AUTO) 6.1 X 10^3 (1.8-7.8); NEUTROPHILS % (AUTO) 65 % (42-75); PLATELET COUNT 285 10^3/uL (130-400); RED CELL DISTRIBUTION WIDTH 12.6 % (10.0-14.5); WHITE BLOOD COUNT 9.3 10^3/uL (4.3-11.0)
[2018-09-07] MEDS: HYDROcodone/APAP 5 MG/325 MG (LORTAB) TAB PO PRN ×5 (05:05→23:09)
--- NOTE | 2018-09-07 05:05 | NUR ---
c/o pain level 9/10 on numeric scale, Lortab 5 1 tab po given
[2018-09-07 05:23] LABS: ALANINE AMINOTRANSFERASE 18 U/L (0-55); ALBUMIN 3.7 GM/DL (3.2-4.5); ALKALINE PHOSPHATASE 60 U/L (40-136); BILIRUBIN,TOTAL 0.4 MG/DL (0.1-1.0); BUN/CREATININE RATIO 30; CARBON DIOXIDE 24 MMOL/L (21-32); CHLORIDE 107 MMOL/L (98-107); GFR ESTIMATED > 60; GLUCOSE 123 MG/DL (70-105); POTASSIUM 4.2 MMOL/L (3.6-5.0); SODIUM 144 MMOL/L (135-145); TOTAL PROTEIN 6.7 GM/DL (6.4-8.2)
--- NOTE | 2018-09-07 05:40 | NUR ---
resting quietly in bed, pain level 0/10 on flacc scale
[2018-09-07 06:00] VITALS: BP 131/84
[2018-09-07] MEDS: inSUlin ASPART (NovoLOG) 1 UNIT/0.01 ML (CHARGE PER UNIT) SC SCH ×4 (06:00→20:57)
[2018-09-07] MEDS: CATHETER FLUSH 10 ML SYR IV SCH ×3 (06:30→20:00)
[2018-09-07] MEDS: metFORMIN 500 MG (GLUCOPHAGE) TAB PO SCH ×2 (06:43→17:18)
[2018-09-07] MEDS: LEVOTHYROXINE 150 MCG (LEVOTHROID) TAB PO SCH (06:43)
[2018-09-07] MEDS: RT-ALBUTEROL SULF 2.5 MG/3 ML PRE-MIX VIAL INH SCH ×2 (07:14→21:01)
[2018-09-07] MEDS: RT-ADVAIR HFA 115/21 MCG PER PUFF IH SCH ×2 (07:15→21:01)
--- NOTE | 2018-09-07 07:23 | NUR ---
bedside report given to KHADIJAH OCHOA
--- NOTE | 2018-09-07 08:17 | PM&R Progress Note ---
Subjective HPI/CC On Admission Date Seen by Provider: September 07, 2018 Time Seen by Provider: 08:15 Chief Complaint: Right ankle fracture with severe debility HPI: This is a 58yoWF clinic Pt of [facility] who suffered a fall ans sustained a right ankle fracture one day following left CTR surgery by Dr. Fontenot at [facility], I actually admitted her over the weekend, she underwent an uncomplicated surgical repair by Dr. Leon and he will be continuing to monitory her progress and place a cast today. Due to the fact of her comorbidities and mental illness and ARIAS she has had a very slow recovery and will be in need of intensive therapy in order to regain enough function to return back home instead of a nursing facility. She did have significant drowsiness following surgery and it was a concern that her ARIAS would cause CO2 Narcosis. ABG was checked and that was stable. She did have a BM two days ago and overall her pain seems to be pretty much under control as long as she takes in on schedule. Her boyfriend is at the bedside and agrees with the plan. Her prior level of functioning was independent at home without the use of assistive devices. At this current time she does have weight bearing restrictions on the right ankle. Subjective/Events-last exam Patient doing very well today Participating in all therapies Maintained on CPAP at night Pain is controlled BM+ regimen maintained Lovenox for DXT PPx Monitoring BP and BS Conferred with RN Reviewed therapy notes Review of Systems General: Fatigue Pulmonary: Dyspnea Musculoskeletal: leg pain Objective Exam Vital Signs Vital Signs Date Time Temp Pulse Resp B/P (MAP) Pulse Ox O2 Delivery O2 Flow Rate FiO2 09/07/18 09:51 79 133/66 (88) 09/07/18 07:15 97 Nasal Cannula 2.00 09/07/18 06:00 97.8 18 Capillary Refill : Less Than 3 SecondsLess Than 3 Seconds General Appearance: No Apparent Distress, WD/WN, Chronically ill, Obese HEENT: PERRL/EOMI, Normal ENT Inspection, Pharynx Normal, Moist Mucous Membranes Neck: Full Range of Motion, Normal Inspection, Non Tender, Supple Respiratory: Chest Non Tender, Lungs Clear, Normal Breath Sounds, No Accessory Muscle Use, No Respiratory Distress Cardiovascular: Regular Rate, Rhythm, No Edema, No Gallop, No JVD, No Murmur Gastrointestinal: Normal Bowel Sounds, No Organomegaly, No Pulsatile Mass, Non Tender, Soft Back: Normal Inspection, No CVA Tenderness, No Vertebral Tenderness Extremity: Normal Capillary Refill, Normal Inspection, Normal Range of Motion ( except right ankle/leg due to cast), Non Tender, No Calf Tenderness, No Pedal Edema Neurologic/Psychiatric: Alert, Oriented x3, No Motor/Sensory Deficits (except right leg from cast in place but moves toes on command), Normal Mood/Affect Skin: Normal Color, Warm/Dry Lymphatic: No Adenopathy Results/Procedures Lab Laboratory Tests 09/07/18 04:50 Patient resulted labs reviewed. FIM Transfers Therapy Code Descriptions/Definitions Functional [place] Measure: 0=Not Assessed/NA 4=Minimal Assistance 1=Total Assistance 5=Supervision or Setup 2=Maximal Assistance 6=Modified [place] 3=Moderate Assistance 7=Complete [place] Therapy Quality Codes: 6 Independent with activity with or without an assistive device 5 Patient requires set up or clean up by helper. Patient completes activity by themselves 4 Supervision or touching assist (CGA). [place] provide cues , steadying assist 3 The helper provides less than half the effort to complete the activity 2 The helper provides more than half the effort to complete the activity 1 Dependent. The helper does all the effort to complete an activity 7 Patient refused to complete or attempt activity 9 The patient did not perform the activity before the current illness or injury 88 Not attempted due to Medical conditions or safety concerns Transfers (B, C, W/C) (FIM): 4 Scootin Rollin Roll Left to Right (QC): 4 Supine to/from Sit: 5 Sit to/from Stand: 4 Sit to Lying (QC): 4 Sit to Stand (QC): 3 Chair/Yhm-lj-Pgqks Xfer(QC): 3 Bed to/from Chair: 4 Car Transfer (QC): 3 Gait Training Does the Patient Walk?: Yes Gait (FIM): 1 Gait Level of Assist: 4 Gait Persons Needed: 1 Gait Assistive Device: Walker Platform Wheelchair Training Does the Pt Use a Wheelchair?: Yes Wheelchair (FIM): 1 Type of Wheelchair: Manual Stair Training Stairs (FIM): 88 Mental Status/Objective Comprehension: 7 Expression: 7 Social Interaction: 7 Problem Solvin Memory: 7 ADL-Treatment Feedin (Pt reports feeding self after set up) Eating (QC): 5 Oral Hygiene (QC): 4 Bathin Shower/Bathe Self (QC): 3 Lower Extremity Dressin Toiletin Toileting Hygiene (QC): 2 Toilet/Commode Transfer: 4 Toilet Transfer (QC): 3 Assessment/Plan Assessment and Plan Assess & Plan/Chief Complaint Assessment: Debility Right ankle fracture s/p repair POD # [address] Fontenot last week Schizophrenia ARIAS on CPAP HTN Obesity DVT PPx Plan: IRF protocols Pain control Lovenox for DVT PPx CPAP BM regimen Increase ability to ambulate with case right ankle Fall risk (1) RIGHT ANKLE FRACTURE (2) Debility (3) Schizophrenia (4) Hypertension (5) Oxygen dependent (6) Carpal tunnel syndrome, left (7) ARIAS on CPAP (8) Fall (9) Fibula fracture (10) Medial malleolar fracture (11) Diabetes mellitus (12) Hypothyroidism SUSAN GARZA DO September 07, 2018 08:17
--- NOTE | 2018-09-07 08:18 | Individualized Plan of Care ---
Individualized Plan of Care Rehab Nursing IPOC Order Admission Date September 06, 2018 at 10:47 Current Orders Orders Admission Order(Inpt,Obs,Sdc) (09/06/18 09:23) Vital Signs: Per Unit Policy ( 08,16,00 (09/06/18 09:23) Traveling Engineer-Inpt Rehab Con (09/06/18 09:23) Rehab Nursing Orders-Ipoc (09/06/18:23) Physical Therapy Rehab Orders (09/06/18:23) Occupational Therapy Rehab Ord (09/06/18:23) Speech Therapy Rehab Orders (09/06/18:23) Intake & Output 06,14,22 (09/06/18:23) Precautions (Aru) (09/06/18:23) Weekly Weight (Lbs) WEEK (09/06/18 09:23) Rehab-Intensity Of Therapy (09/06/18 09:23) Code/Resuscitation (09/06/18:23) Initiate Admission Nursing Pro .admission (09/06/18 09:23) General/Regular (09/06/18 Lunch) Admission Arrival Bed Request (09/06/18 10:47) Code/Resuscitation (09/06/18 11:30) Accucheck Achs ACHS (09/06/18 11:30) Activity (09/06/18 11:30) Ambulate 08,12,20 (09/06/18 11:30) Catheter(Urinary) Discontinue (09/06/18 11:30) Elevate (09/06/18 11:30) Initiate Admission Nursing Pro .admission (09/06/18 11:30) Oxygen-Administer 07,19 (09/06/18 11:30) Sequential Compression Device 08,20 (09/06/18 11:30) Weight Bearing Status (09/06/18 11:30) (Nf) Mirabegron (Myrbetriq) (09/06/18 21:00) Albuterol Pre-Mix Nebs (Rt) (Proventil (09/06/18 21:00) Atorvastatin Tablet (Lipitor) (09/06/18 21:00) Bisacodyl Suppository (Dulcolax Supposit (09/06/18 11:30) Carboxymethylcell Ophth Soln (Refresh Pl (09/06/18 11:30) Enoxaparin Injection (Lovenox Injection) (09/06/18 22:00) Fluticasone/Salmeterol Common (Advair 11 (09/06/18 20:00) Hydrocodone/Apap 5/325 Tablet (Lortab 5 (09/06/18 11:30) Ketorolac Injection (Toradol Injection) (09/06/18 11:30) Lactulose Oral Solution (Enulose Oral So (09/06/18 21:00) Levothyroxine Tablet (Synthroid Tablet) (09/07/18 06:30) Linagliptin Tablet (Tradjenta Tablet) (09/07/18 09:00) Ondansetron Injection (Zofran Injectio (09/06/18 11:30) Patient May Use Own Meds, All (Patient M (09/06/18 11:30) Senna S Tablet (Senokot S Tablet) (09/06/18 21:00) Sertraline Tablet (Zoloft Tablet) (09/07/18 09:00) Sodium Chloride Flush (Catheter Flush Sy (09/06/18 14:00) Spironolactone Tablet (Aldactone Tablet) (09/07/18 09:00) Therapeutic Multivitamin Tab (Vitamins, (09/07/18 09:00) Amlodipine Tablet (Norvasc Tablet) (09/07/18 09:00) Hydroxyzine Cap/Tab (Vistaril) (09/06/18 21:00) Insulin Aspart (Novolog) (Novolog (Charg (09/06/18 16:00) Metformin Tablet (Glucophage Tablet) (09/06/18 17:00) Trazodone Tablet (Desyrel Tablet) (09/06/18 11:30) Trazodone Tablet (Desyrel Tablet) (09/06/18 21:00) Irf Req Eval/Acute Rehab (09/06/18 11:30) Oxygen Delivery Set Up (09/06/18 11:30) Rt Request For Service (09/06/18 11:30) Svn Small Volume Nebulizer (09/06/18 11:30) Svn Small Volume Nebulizer (09/06/18 11:30) Mdi Treatment (09/06/18 11:30) Ambulate 08,12,20 (09/06/18 11:36) Sequential Compression Device 08,20 (09/06/18 11:36) Dvt/Vte Risk - Notifiy Physici 08 (09/06/18 11:36) Physical Therapy Oder (09/06/18 11:40) Cho 60g/M 1snack (16-2000 Tod) (09/06/18 Lunch) Request Ot Evaluate & Treat (09/06/18 12:13) Patient Visit (09/06/18 ) Pt Eval Moderate Complexity (09/06/18 ) Exercise Therap, Ea 15 Min (09/06/18 ) Functional Activities, Ea 15 (09/06/18 ) Patient Visit (09/06/18 ) Exercise Therap, Ea 15 Min (09/06/18 ) Functional Activities, Ea 15 (09/06/18 ) Patient Visit (09/06/18 ) Speech Sound Lang Comp (09/06/18 ) Patient May Use Own Med,Single (Patient (09/06/18 22:00) Patient May Use Own Med,Single (Patient (09/06/18 22:00) Cbc With Automated Diff (09/07/18 06:00) Comprehensive Metabolic Panel (09/07/18 06:00) Albuterol Pre-Mix Nebs (Rt) (Proventil (09/06/18 21:00) Rehab Nursing Orders: Ongoing Assess. of Function Status, Bladder Management, Bladder Training, Bowel Management, Disease Management & Educaiton, DVT Prophylaxis, Fluid/Electrolyte/Nutrition Mgmt, Medication Management & Education , Management of Risks & Complications, Management of Skin Intergrity, Pain Management, Patient/Family Support, Weight Bearing Precaution Intensity of Therapy to be met Patient to be seen: Min.3h per day/5 of 7d PT IPOC Problem List: Activity Tolerance, Functional Strength, Safety, Balance, Gait, Transfer, Bed Mobility, ROM Treatment Plan: Continue Plan of Care Bed Mobility, Concurrent Therapy, Education, Functional Activity Nubia, Functional Strength, Group Therapy, Gait, Safety, Therapeutic Exercise, Transfers Treatment Duration: Sep 27, 2018 Frequency: At least 5 of 7 days/Wk (IRF) Estimated Hrs Per Day: 1.5 hours per day OT IPOC Problems: Decreased Activ Tolerance, Decreased UE Strength, Dependent Transfers , Impaired Funct Balance, Impaired I ADL's, Impaired Self-Care Skills OT Treatment, Training and Edu: Yes OT Problems Pt to benefit from skilled OT intervention for ADL training, transfers, strengthening, and safety education to increase level of independence and allow safe discharge. Plan of Care: ADL Retraining, Functional Mobility, Group Exercise/Act as Ind, UE Funct Exercise/Act Treatment Duration: Sep 27, 2018 Frequency: At least 5 of 7 days/Wk (IRF) Estimated Hrs Per Day: 1.[address] IPOC Speech Therapy Treatment Plan: Discontinue ST Treatment Duration: September 06, 2018 Frequency: 1 time per week Estimated Hrs Per Day: .25 hour per day Traveling Engineer/Case Mgmt Traveling Engineer/Case Managemen: Discharge Planning Dietitian/Tele Marketing Executive Dietitian/Tele Marketing Executive to monitor nutritional status and make changes and/or recommendations as needed and work with speech pathology on dietary upgrades as the occur. Physician IPOC Medical Issues being managed closely and that require the 24 hour availability of a physician: Severe pain from right ankle fracture and ARIAS is high risk for respiratory compromise from narcs Medical Issues: Bowel/Bladder Function, DVT Prophylaxis, Falls Precautions, Fluid/Electrolyte/Nutrition Balance, Pain Management Brief Synthesis of Preadmission Screen, Post-Admission Evaluation, and Therapy Evaluations: PT will focus on ambulation techniques in the right ankle cast OT will improve independence in ADL's in order to DC home Medical Prognosis: Good Anticipated Length of Stay: 7-10 days SUSAN GARZA DO September 07, 2018 08:18
[2018-09-07] MEDS ORDERED: LINAGLIPTIN (TRADJENTA) 5 MG TABLET PO SCH (09:00)
[2018-09-07 09:51] VITALS: BP 133/66
[2018-09-07] MEDS: SENNA W/DOCUSATE (SENOKOT S) TABLET PO SCH ×2 (09:52→20:52)
[2018-09-07] MEDS: MULTIVIT W/MINERALS TAB (THERAGRAN M) PO SCH (09:52)
[2018-09-07] MEDS: amLODIPine 10 MG (NORVASC) TAB PO SCH (09:53)
[2018-09-07] MEDS: SPIRONOLACTONE 25 MG (ALDACTONE) TAB PO SCH (09:53)
[2018-09-07] MEDS: LACTULOSE SYRUP 10GM/15ML (ENULOSE) 30ML UDC PO SCH ×2 (09:53→20:53)
[2018-09-07] MEDS: hydrOXYzine (VISTARIL) 25 MG capsule/tablet PO SCH ×2 (09:53→20:52)
[2018-09-07] MEDS: ENOXAPARIN 40 MG/0.4 ML (LOVENOX) SYR SC SCH ×2 (09:54→22:17)
[2018-09-07] MEDS: SERTRALINE 100 MG (ZOLOFT) TAB PO SCH (09:55)
--- NOTE | 2018-09-07 10:30 | Occupational Ther Daily Note ---
OT Current Status-Daily Note Subjective Pt in bed, agrees to treatment. Pt reports 8/10 pain in right ankle. Requests pain meds after session, RN notified. Mental Status/Objective Therapy Code Descriptions/Definitions Functional [place] Measure: 0=Not Assessed/NA 4=Minimal Assistance 1=Total Assistance 5=Supervision or Setup 2=Maximal Assistance 6=Modified [place] 3=Moderate Assistance 7=Complete [place] Attachments: Oxygen ADL-Treatment Pt declined shower, but agrees to sponge bath and dressing. Supine to sit with SBA. Sit to stand and transfer to chair with minimal assistance using platform FWW. Sponge bath completed seated in chair. Upper body bathing completed with SBA. Pt able to wash marty area, bilateral upper legs, and left lower leg. Min assist for balance while washing buttocks. Don pullover shirt with set up. Pt able to thread bilateral LE into underwear and shorts. Stood with minimal assistance for pant hike. Doff/don left sock with SBA. Grooming tasks completed seated at sink. Pt combed hair and brushed teeth with SBA. Min assist to pull hair back into ponytail. [place] [facility] [place] using platform walker, cues for NWB right LE. Pt able to pull pants down, but requires assist for thorough hygiene after BM and to pull pants up. Pt has decreased activity tolerance, requires occasional rest breaks throughout treatment. Therapy Code Descriptions/Definitions Functional [place] Measure: 0=Not Assessed/NA 4=Minimal Assistance 1=Total Assistance 5=Supervision or Setup 2=Maximal Assistance 6=Modified [place] 3=Moderate Assistance 7=Complete [place] Therapy Quality Codes: 6 Independent with activity with or without an assistive device 5 Patient requires set up or clean up by helper. Patient completes activity by themselves 4 Supervision or touching assist (CGA). [place] provide cues , steadying assist 3 The helper provides less than half the effort to complete the activity 2 The helper provides more than half the effort to complete the activity 1 Dependent. The helper does all the effort to complete an activity 7 Patient refused to complete or attempt activity 9 The patient did not perform the activity before the current illness or injury 88 Not attempted due to Medical conditions or safety concerns Bathing (FIM): 4 Shower/Bathe Self (QC): 3 Upper Body (FIM): 5 Upper Body Dressing (QC): 4 Lower Body Dressing (FIM): 4 Lower Body Dressing (QC): 3 Toilet/Commode Transfer (FIM): 4 Other Treatment To therapy gym via w/c. Pt completed right UE exercises to increase strength needed for ADLs and transfers. Pt performed shoulder flexion, abduction, biceps curls, and triceps extension exercises x20 reps with 1# weight. Rest breaks between exercises. Pt completed peg activity with right UE with 1# wrist weight in place to increase strength, coordination, and activity tolerance. Pt returned to room, transferred to EOB with min assist. Sit to supine with SBA. Pt resting in bed with needs met after session. OT Short Term Goals Short Term Goals Time Frame: September 13, 2018 Bathing(FIM): 4 Lower Body Dressing(FIM): 4 Toileting(FIM): 4 Toilet/Commode Transfer(FIM): 4 (CGA) Additional Short Term Goals: 1-Demonstrate ADL Tasks, 2-Verbalize Understanding , 3-ImproveStrength/Nubia 1=Demonstrate adherence to instructed precautions during ADL tasks. 2=Patient will verbalize/demonstrate understanding of assistive devices/ modifications for ADL. 3=Patient will improve strength/tolerance for activity to enable patient to perform ADL's. OT Longterm Goals Insulation Professional Goals Time Frame: Sep 27, 2018 Eating (FIM): 7 Eating (QC): 6 Groomin Oral Hygiene (QC): 6 Bathing(FIM): 5 Shower/Bathe Self (QC): 5 Upper Body Dressing(FIM): 6 Upper Body Dressing (QC): 6 Lower Body Dressing(FIM): 5 Lower Body Dressing (QC): 5 On/Off Footwear (QC): 5 Toileting(FIM): 5 Toileting Hygiene (QC): 5 Toilet/Commode Transfer(FIM): 5 Toilet/Commode Transfer (QC): 5 Shower Transfer(FIM): 5 Additional Goals: 1-Demonstrate ADL Tasks, 2-Verbalize Understanding, 3- ImproveStrength/Nubia 1=Demonstrate adherence to instructed precautions during ADL tasks. 2=Patient will verbalize/demonstrate understanding of assistive devices/ modifications for ADL. 3=Patient will improve strength/tolerance for activity to enable patient to perform ADL's. OT Education/Plan Discharge Recommendations Plan/Recommendations: Continue POC Treatment Plan/Plan of Care Patient would benefit from OT for education, treatment and training to promote independence in ADL's, mobility, safety and/or upper extremity function for ADL' s. Plan of Care: ADL Retraining, Functional Mobility, Group Exercise/Act as Ind, UE Funct Exercise/Act Treatment Duration: Sep 27, 2018 Frequency: At least 5 of 7 days/Wk (IRF) Estimated Hrs Per Day: 1.5 hours per day Agreement: Yes Rehab Potential: Fair Time/GCodes Start Time: 08:00 Stop Time: 09:30 Total Time Billed (hr/min): 90 Billed Treatment Time 1 visit, ADLx4(60minutes), EXx2(30minutes) BENNIE BUSBY OT September 07, 2018 10:30
--- NOTE | 2018-09-07 10:37 | Progress Note - Ortho ---
Progress Note Postoperative day number 4 open reduction internal fixation right ankle fracture The patient is comfortable in her cast that was applied yesterday. She can move her toes and has normal sensation with good capillary refill. Continue with walker ambulation nonweightbearing on the right Laboratory Tests 09/06/18 16:28: Glucometer 124H 09/07/18 04:50: Glucometer 127H, White Blood Count 9.3, Red Blood Count 4.26L, Hemoglobin 12.6, Hematocrit 39, Mean Corpuscular Volume 91, Mean Corpuscular Hemoglobin 30, Mean Corpuscular Hemoglobin Concent 33, Red Cell Distribution Width 12.6, Platelet Count 285, Mean Platelet Volume 9.7, Neutrophils (%) (Auto) 65, Lymphocytes (%) (Auto) 21, Monocytes (%) (Auto) 10, Eosinophils (%) (Auto) 3, Basophils (%) ( Auto) 0, Neutrophils # (Auto) 6.1, Lymphocytes # (Auto) 1.9, Monocytes # (Auto) 1.0, Eosinophils # (Auto) 0.3, Basophils # (Auto) 0.0, Sodium Level 144, Potassium Level 4.2, Chloride Level 107, Carbon Dioxide Level 24, Anion Gap 13, Blood Urea Nitrogen 21H, Creatinine 0.70, Estimat Glomerular Filtration Rate > 60, BUN/Creatinine Ratio 30, Glucose Level 123H, Calcium Level 10.0, Corrected Calcium 10.2H, Total Bilirubin 0.4, Aspartate Amino Transf (AST/SGOT) 17, Alanine Aminotransferase (ALT/SGPT) 18, Alkaline Phosphatase 60, Total Protein 6.7, Albumin 3.7 Vital Signs Date Time Temp Pulse Resp B/P (MAP) Pulse Ox O2 Delivery O2 Flow Rate FiO2 09/07/18 09:51 79 133/66 (88) 09/07/18 07:15 97 Nasal Cannula 2.00 09/07/18 06:00 97.8 62 18 131/84 (100) 97 Nasal Cannula 2.00 09/06/18 21:42 72 20 95/53 (67) 95 Nasal Cannula 2.00 09/06/18 21:00 95 Nasal Cannula 2.00 09/06/18 20:10 97 Nasal Cannula 2.00 09/06/18 17:05 97.4 69 18 120/74 (89) 96 Nasal Cannula 2.00 09/06/18 14:19 Nasal Cannula 2.00 09/06/18 11:34 98.6 85 18 97/58 (71) 96 Nasal Cannula 2.00 I & O 09/07/18 07:00 Intake Total 1250 ml Balance 1250 ml Clinical Quality Measures DVT/VTE Risk/Contraindication: Risk Factor Score Per Nursin RFS Level Per Nursing on Admit: 4+=Very High MYLES CINTRON MD September 07, 2018 10:37
--- NOTE | 2018-09-07 11:34 | Physical Therapy Daily Note ---
PT Daily Note-Current Subjective Pt. initially states the pain in her right ankle is 8/10 and after Rx is 9/10. Pt. thinks ice packs might help after Rx, LEs elevated after Rx. Pain Numeric Pain Scale: 9 Location: Right Location Body Site: Foot Pain Description: Ache Mental Status Patient Orientation: Person, Place, Time, Situation Attachments: Oxygen (2L), Other-See Comments (cast right foot/ankle) Transfers Therapy Code Descriptions/Definitions Functional [place] Measure: 0=Not Assessed/NA 4=Minimal Assistance 1=Total Assistance 5=Supervision or Setup 2=Maximal Assistance 6=Modified [place] 3=Moderate Assistance 7=Complete [place] Therapy Quality Codes: 6 Independent with activity with or without an assistive device 5 Patient requires set up or clean up by helper. Patient completes activity by themselves 4 Supervision or touching assist (CGA). [place] provide cues , steadying assist 3 The helper provides less than half the effort to complete the activity 2 The helper provides more than half the effort to complete the activity 1 Dependent. The helper does all the effort to complete an activity 7 Patient refused to complete or attempt activity 9 The patient did not perform the activity before the current illness or injury 88 Not attempted due to Medical conditions or safety concerns Transfers (B, C, W/C) (FIM): 4 Scootin Rollin Supine to/from Sit: 5 Sit to/from Stand: 4 pt. with difficulty NWBing right, pts athletic shoe applied to left foot to offset unequal leg length . TRF emphasis on approaching with w/c to TRF toward "good side" to bed or chair from w/c etc. also toilet TRFs in bathroom utilizing railing as pt has similar situation at home Weight Bearing Right Lower Extremity: Right Non Weight Bearing Left Lower Extremity: Left Full Weight Bearing (L) hand NWB due to recent carpal tunnel release also NWB on LUE Gait Training Does the Patient Walk?: Yes Gait (FIM): 1 Distance (FIM): 1=up to 49 ft (5ftx3) Gait Level of Assist: 4 Gait Persons Needed: 1 Gait Assistive Device: Walker Platform pt. has difficulty maintaining NWBing right as well as being hesitant to put weight on L forearm onto platform. pt took shuffling side steps and a few forward steps with mod to min assist to advance walker as well as step by step instructions for gait, pt. tends to semi hop in one spot not making any real headway towards her goal Wheelchair Training Does the Pt Use a Wheelchair?: Yes Wheelchair (FIM): 3 Wheelchair Distance: 3=241-58 ft (70x3) Wheelchair Level of Assist: 4 Type of Wheelchair: Manual pt. utilizing left foot and right arm to propel and becomes min SOB and c/o fatigue Exercises Supine Ex: Ankle pumps, Quad Set, Rolling, Glut sets, Heel Slides, Short Arc Quads, Scooting, Straight leg raise, Hip abd/add Supine Reps: 20 Seated Therapy Exercises: Sit to stand, Long arc quads, Hip flexion, Hip abd/ add Seated Reps: 10 Treatments trialed titration off O2 this date with pt. managing very well off O2 completely until she was doing w/c mobility for approx 50 ft, O2 down to 87% and 2L was reapplied. Nursing informed . Ice bags placed medial and lateral side of ankle for pain after Rx with LEs elevated. Assessment Current Status: Good Progress pt. seems anxious , all efforts made to encourage her and guide her through Rx , also very supportive PT Short Term Goals Short Term Goals Time Frame: September 13, 2018 Gait (FIM): 1 Gait Distance Comment: 10' Gait Level of Assist: 4 Gait Assistive Device: Walker Platform PT Irrigator Valve Pipe Goals Nursing Home Goals PT Nursing Home Goals Time Frame: Sep 27, 2018 Transfers (B,C,W/C) (FIM): 5 Sit to Lying (QC): 6 Lying-Sitting on Side/Bed(QC): 6 Sit to Stand (QC): 4 Rollin Roll Left to Right (QC): 6 Chair/Qgd-ir-Yuape Xfer(QC): 4 Car Transfer (QC): 4 Gait (FIM): 1 Distance: 20' Walk 10 feet (QC): 4 Walk 10ft-Uneven Surface(QC): 4 Gait Level of Assist: 4 Gait Assistive Device: Walker Platform Wheelchair (FIM): 5 Distance: 150' Wheelchair Level of Assist: 5 Wheel 50 feet with 2 turns (QC: 4 Stairs (FIM): 1 # of Steps: 1 1 Step (curb) (QC): 3 PT Plan Treatment/Plan Treatment Plan: Continue Plan of Care Treatment Plan: Bed Mobility, Concurrent Therapy, Education, Functional Activity Nubia, Functional Strength, Group Therapy, Gait, Safety, Therapeutic Exercise, Transfers Treatment Duration: Sep 27, 2018 Frequency: At least 5 of 7 days/Wk (IRF) Estimated Hrs Per Day: 1.5 hours per day Patient and/or Family Agrees t: Yes Safety Risks/Education Patient Education: Gait Training, Transfer Techniques, Correct Positioning, W/ C Management, Disease Process, Safety Issues Teaching Recipient: Patient Teaching Methods: Demonstration, Discussion Response to Teaching: Verbalize Understanding, Return Demonstration, Reinforcement Needed Time/GCodes Time In: 1000 Time Out: 1130 Total Billed Treatment Time: 90 Total Billed Treatment 1,GT20m,FA40m,w/c 15m,EX15m G Codes Necessary: ISABELLE Abrams BELT MEASURER September 07, 2018 11:34
--- NOTE | 2018-09-07 11:45 | NUR ---
REVIEWED MED REC IT WAS REPORTED UPON ADMISSION TO 4TH FLOOR.
[2018-09-07] MEDS: NICOTINE 21 MG (NICODERM) PATCH TD SCH (12:19)
--- NOTE | 2018-09-07 15:39 | NUR ---
TAPER MACHINE met with patient to review Team Conference Summary. As patient just recently admitted and continues to require Min A for all therapy activity, and constant cues for maintaining NWB status, as well as need for more controlled pain management, Team has recommended patient be re-evaluated at next team conference on 09/14. Patient is agreeable to this. TAPER MACHINE will continue to follow for additional needs.
--- NOTE | 2018-09-07 16:12 | NUR ---
Pt is Alevism and attends [employer] in [place]. Shirring Machine Operator Automatic provided prayer and Communion.
[2018-09-07 18:05] VITALS: BP 115/59
--- NOTE | 2018-09-07 19:00 | NUR ---
states pain level 8/10 on numeric scale
--- NOTE | 2018-09-07 19:17 | NUR ---
bedside report received from KHADIJAH OCHOA, assume care of pt
[2018-09-07] MEDS: KETOROLAC 15 MG/ML VIAL IV PRN (19:58)
--- NOTE | 2018-09-07 19:58 | NUR ---
c/o pain level 9/10 on numeric scale, Toradol 15mg iv
--- NOTE | 2018-09-07 20:35 | NUR ---
states pain level 8/10 on numeric scale
[2018-09-07 20:50] VITALS: BP 104/56
[2018-09-07] MEDS: MYRBETRIQ 50 MG TABLET PO SCH (20:51)
[2018-09-07] MEDS: ATORVASTATIN 40 MG (LIPITOR) TABLET PO SCH (20:52)
[2018-09-07] MEDS: traZODone 150 MG (DESYREL) TABLET PO SCH (20:52)
--- NOTE | 2018-09-07 23:09 | NUR ---
c/o pain level 10/10 on numeric scale, Lortab 5 1 tab po given
--- NOTE | 2018-09-07 23:50 | NUR ---
resting quietly in bed, pain level 0/10 on flacc scale
[2018-09-08 05:20] VITALS: BP 141/74
[2018-09-08] MEDS: HYDROcodone/APAP 5 MG/325 MG (LORTAB) TAB PO PRN ×6 (05:38→23:32)
[2018-09-08] MEDS: RT-ALBUTEROL SULF 2.5 MG/3 ML PRE-MIX VIAL INH SCH (06:09)
[2018-09-08] MEDS: RT-ADVAIR HFA 115/21 MCG PER PUFF IH SCH (06:14)
[2018-09-08] MEDS: CATHETER FLUSH 10 ML SYR IV SCH ×3 (06:38→21:07)
[2018-09-08] MEDS: inSUlin ASPART (NovoLOG) 1 UNIT/0.01 ML (CHARGE PER UNIT) SC SCH ×4 (06:38→20:48)
[2018-09-08] MEDS: LEVOTHYROXINE 150 MCG (LEVOTHROID) TAB PO SCH (07:00)
[2018-09-08] MEDS: metFORMIN 500 MG (GLUCOPHAGE) TAB PO SCH ×2 (07:00→17:18)
--- NOTE | 2018-09-08 07:33 | NUR ---
bedside report given to WILY OCHOA
--- NOTE | 2018-09-08 08:25 | PM&R Progress Note ---
Subjective HPI/CC On Admission Date Seen by Provider: September 08, 2018 Time Seen by Provider: 08:30 Chief Complaint: Right ankle fracture with severe debility HPI: This is a 58yoWF clinic Pt of [facility] who suffered a fall ans sustained a right ankle fracture one day following left CTR surgery by Dr. Fontenot at [facility], I actually admitted her over the weekend, she underwent an uncomplicated surgical repair by Dr. eLon and he will be continuing to monitory her progress and place a cast today. Due to the fact of her comorbidities and mental illness and ARIAS she has had a very slow recovery and will be in need of intensive therapy in order to regain enough function to return back home instead of a nursing facility. She did have significant drowsiness following surgery and it was a concern that her ARIAS would cause CO2 Narcosis. ABG was checked and that was stable. She did have a BM two days ago and overall her pain seems to be pretty much under control as long as she takes in on schedule. Her boyfriend is at the bedside and agrees with the plan. Her prior level of functioning was independent at home without the use of assistive devices. At this current time she does have weight bearing restrictions on the right ankle. Subjective/Events-last exam Patient doing very well today but has a lot of pain at night and I reviewed her pain meds and cannot increase more than what it is now due to high risk for resp insuff Participating in all therapies Wants to go home soon since she has a lot of help at home Maintained on CPAP at night Pain is controlled BM+ regimen maintained Lovenox for DXT PPx Monitoring BP and BS Conferred with RN Reviewed therapy notes Review of Systems Musculoskeletal: leg pain Objective Exam Vital Signs Vital Signs Date Time Temp Pulse Resp B/P (MAP) Pulse Ox O2 Delivery O2 Flow Rate FiO2 09/08/18 06:09 98 Nasal Cannula 1.00 09/08/18 05:20 98.2 69 18 141/74 (96) Capillary Refill : Less Than 3 SecondsLess Than 3 Seconds General Appearance: No Apparent Distress, WD/WN, Chronically ill, Obese HEENT: PERRL/EOMI, Normal ENT Inspection, Pharynx Normal, Moist Mucous Membranes Neck: Full Range of Motion, Normal Inspection, Non Tender, Supple Respiratory: Chest Non Tender, Lungs Clear, Normal Breath Sounds, No Accessory Muscle Use, No Respiratory Distress Cardiovascular: Regular Rate, Rhythm, No Edema, No Gallop, No JVD, No Murmur Gastrointestinal: Normal Bowel Sounds, No Organomegaly, No Pulsatile Mass, Non Tender, Soft Back: Normal Inspection, No CVA Tenderness, No Vertebral Tenderness Extremity: Normal Capillary Refill, Normal Inspection, Normal Range of Motion ( except right ankle/leg due to cast), Non Tender, No Calf Tenderness, No Pedal Edema Neurologic/Psychiatric: Alert, Oriented x3, No Motor/Sensory Deficits (except right leg from cast in place but moves toes on command), Normal Mood/Affect Skin: Normal Color, Warm/Dry Lymphatic: No Adenopathy Results/Procedures Lab Patient resulted labs reviewed. FIM Transfers Therapy Code Descriptions/Definitions Functional [place] Measure: 0=Not Assessed/NA 4=Minimal Assistance 1=Total Assistance 5=Supervision or Setup 2=Maximal Assistance 6=Modified [place] 3=Moderate Assistance 7=Complete [place] Therapy Quality Codes: 6 Independent with activity with or without an assistive device 5 Patient requires set up or clean up by helper. Patient completes activity by themselves 4 Supervision or touching assist (CGA). [place] provide cues , steadying assist 3 The helper provides less than half the effort to complete the activity 2 The helper provides more than half the effort to complete the activity 1 Dependent. The helper does all the effort to complete an activity 7 Patient refused to complete or attempt activity 9 The patient did not perform the activity before the current illness or injury 88 Not attempted due to Medical conditions or safety concerns Transfers (B, C, W/C) (FIM): 4 Scootin Rollin Roll Left to Right (QC): 4 Supine to/from Sit: 5 Sit to/from Stand: 4 Sit to Lying (QC): 4 Sit to Stand (QC): 3 Chair/Ioz-eh-Gpcrc Xfer(QC): 3 Bed to/from Chair: 4 Car Transfer (QC): 3 Gait Training Does the Patient Walk?: Yes Gait (FIM): 1 Distance (FIM): 1=up to 49 ft (5ftx3) Gait Level of Assist: 4 Gait Persons Needed: 1 Gait Assistive Device: Walker Platform Wheelchair Training Does the Pt Use a Wheelchair?: Yes Wheelchair (FIM): 3 Wheelchair Distance: 5=086-95 ft (70x3) Wheelchair Level of Assist: 4 Type of Wheelchair: Manual Stair Training Stairs (FIM): 88 Mental Status/Objective Comprehension: 7 Expression: 7 Social Interaction: 7 Problem Solvin Memory: 7 ADL-Treatment Feedin (Pt reports feeding self after set up) Eating (QC): 5 Oral Hygiene (QC): 4 Bathin Shower/Bathe Self (QC): 3 Upper Extremity Dressin Upper Body Dressing (QC): 4 Lower Extremity Dressin Lower Body Dressing (QC): 3 Toiletin Toileting Hygiene (QC): 2 Toilet/Commode Transfer: 4 Toilet Transfer (QC): 3 Assessment/Plan Assessment and Plan Assess & Plan/Chief Complaint Assessment: Debility Right ankle fracture s/p repair POD # [address] Fontenot last week Schizophrenia ARIAS on CPAP HTN Obesity DVT PPx Plan: IRF protocols Pain control Lovenox for DVT PPx CPAP BM regimen Increase ability to ambulate with case right ankle Fall risk Evaluate plan of care Inquire with Dr Fontenot regarding OT therapy on left hand wrist (1) RIGHT ANKLE FRACTURE (2) Debility (3) Schizophrenia (4) Hypertension (5) Oxygen dependent (6) Carpal tunnel syndrome, left (7) ARIAS on CPAP (8) Fall (9) Fibula fracture (10) Medial malleolar fracture (11) Diabetes mellitus (12) Hypothyroidism SUSAN GARZA DO September 08, 2018 08:25
[2018-09-08] MEDS: amLODIPine 10 MG (NORVASC) TAB PO SCH (10:19)
[2018-09-08] MEDS: MULTIVIT W/MINERALS TAB (THERAGRAN M) PO SCH (10:19)
[2018-09-08] MEDS: hydrOXYzine (VISTARIL) 25 MG capsule/tablet PO SCH ×2 (10:19→20:44)
[2018-09-08] MEDS: SERTRALINE 100 MG (ZOLOFT) TAB PO SCH (10:20)
[2018-09-08] MEDS: SPIRONOLACTONE 25 MG (ALDACTONE) TAB PO SCH (10:20)
[2018-09-08] MEDS: SENNA W/DOCUSATE (SENOKOT S) TABLET PO SCH ×2 (10:20→20:44)
[2018-09-08] MEDS: NICOTINE 21 MG (NICODERM) PATCH TD SCH (10:21)
[2018-09-08] MEDS: ENOXAPARIN 40 MG/0.4 ML (LOVENOX) SYR SC SCH ×2 (10:22→21:08)
[2018-09-08] MEDS: LACTULOSE SYRUP 10GM/15ML (ENULOSE) 30ML UDC PO SCH ×2 (10:22→20:44)
--- NOTE | 2018-09-08 12:12 | Occupational Ther Daily Note ---
OT Current Status-Daily Note Subjective Pt seen in room, up in bed, agreeable to OT. Would like to take a shower this morning Appearance Alert, cooperative, flat affect Mental Status/Objective Patient Orientation: Person, Place, Time, Situation Therapy Code Descriptions/Definitions Functional [place] Measure: 0=Not Assessed/NA 4=Minimal Assistance 1=Total Assistance 5=Supervision or Setup 2=Maximal Assistance 6=Modified [place] 3=Moderate Assistance 7=Complete [place] Attachments: Saline Lock, Other-See Comments (cast r foot, splint L wrist) ADL-Treatment SBA supine to sit EOB. CGA SPT from bed to w/c, FWW with platform. Pt help ed propel w/c into bathroom. SPT on/off toilet, using grab bar. Skilled cues to not pull herself up using L hand on grab bar. Managed clothing and hygiene with SBA. CGA SPT back to w/c. Pt helped position w/c at shower. CGA SPT on/off shower bench, cues to not pull herself up with L hand on grab bar. Pt completed shower using shower bench, hand held shower. R foot and L hand covered in plastic, IV site covered. Pt washed and dried all parts with setup, supervision for maintaining precautions. Transferred back into w/c with CGA, SPT. Pt propelled w/c to sink to comb hair, brush teeth with setup. Washed and dried face and hands in shower. Pt educ modified technique for dressing. Donned shirt , sock with setup, SBA for donning pants, standing with SBA, FWW. Pt transferred to recliner with CGA, FWW with platform, a little help moving walker for turning. Pt left up in recliner, O2 in place at 1L/min (O2 off during shower per pt request), all needs met. Therapy Code Descriptions/Definitions Functional [place] Measure: 0=Not Assessed/NA 4=Minimal Assistance 1=Total Assistance 5=Supervision or Setup 2=Maximal Assistance 6=Modified [place] 3=Moderate Assistance 7=Complete [place] Therapy Quality Codes: 6 Independent with activity with or without an assistive device 5 Patient requires set up or clean up by helper. Patient completes activity by themselves 4 Supervision or touching assist (CGA). [place] provide cues , steadying assist 3 The helper provides less than half the effort to complete the activity 2 The helper provides more than half the effort to complete the activity 1 Dependent. The helper does all the effort to complete an activity 7 Patient refused to complete or attempt activity 9 The patient did not perform the activity before the current illness or injury 88 Not attempted due to Medical conditions or safety concerns Grooming (FIM): 5 (setup) Bathing (FIM): 5 (Supervision. Shower bench, grab bar, hand held shower) Upper Body (FIM): 5 (setup) Lower Body Dressing (FIM): 5 (Pt educ mod technique. SBA, setup. Donned sock on L foot with setup) Toileting (FIM): 5 (SBA) Toilet/Commode Transfer (FIM): 4 (CGA, tall toilet, grab bar) Shower Transfer(FIM): 4 (CGA, shower bench, grab bar) Education OT Patient Education: Modified ADL techniques, Progress toward Goal/Update tx plan, Purpose of tx/functional activities, Reviewed precautions, Safety issues, Transfer techniques Teaching Recipient: Patient Teaching Methods: Demonstration, Discussion Response to Teaching: Verbalize Understanding, Return Demonstration, Reinforcement Needed OT Short Term Goals Short Term Goals Time Frame: September 13, 2018 Bathing(FIM): 4 Lower Body Dressing(FIM): 4 Toileting(FIM): 4 Toilet/Commode Transfer(FIM): 4 (CGA) Additional Short Term Goals: 1-Demonstrate ADL Tasks, 2-Verbalize Understanding , 3-ImproveStrength/Nubia 1=Demonstrate adherence to instructed precautions during ADL tasks. 2=Patient will verbalize/demonstrate understanding of assistive devices/ modifications for ADL. 3=Patient will improve strength/tolerance for activity to enable patient to perform ADL's. OT Shelter Goals Specification Manager Goals Time Frame: Sep 27, 2018 Eating (FIM): 7 Eating (QC): 6 Groomin Oral Hygiene (QC): 6 Bathing(FIM): 5 Shower/Bathe Self (QC): 5 Upper Body Dressing(FIM): 6 Upper Body Dressing (QC): 6 Lower Body Dressing(FIM): 5 Lower Body Dressing (QC): 5 On/Off Footwear (QC): 5 Toileting(FIM): 5 Toileting Hygiene (QC): 5 Toilet/Commode Transfer(FIM): 5 Toilet/Commode Transfer (QC): 5 Shower Transfer(FIM): 5 Additional Goals: 1-Demonstrate ADL Tasks, 2-Verbalize Understanding, 3- ImproveStrength/Nubia 1=Demonstrate adherence to instructed precautions during ADL tasks. 2=Patient will verbalize/demonstrate understanding of assistive devices/ modifications for ADL. 3=Patient will improve strength/tolerance for activity to enable patient to perform ADL's. OT Education/Plan Discharge Recommendations Plan/Recommendations: Continue POC Treatment Plan/Plan of Care Patient would benefit from OT for education, treatment and training to promote independence in ADL's, mobility, safety and/or upper extremity function for ADL' s. Plan of Care: ADL Retraining, Functional Mobility, Group Exercise/Act as Ind, UE Funct Exercise/Act Treatment Duration: Sep 27, 2018 Frequency: At least 5 of 7 days/Wk (IRF) Estimated Hrs Per Day: 1.5 hours per day Agreement: Yes Rehab Potential: Fair Time/GCodes Start Time: 08:30 Stop Time: 09:30 Total Time Billed (hr/min): 60 Billed Treatment Time visit, 60 minutes ADL KACY NUR OT September 08, 2018 12:12
--- NOTE | 2018-09-08 12:25 | Occupational Ther Daily Note ---
OT Current Status-Daily Note Subjective Pt seen in room, up in w/c, agreeable to OT. No pain mentioned Appearance Alert, cooperative Mental Status/Objective Therapy Code Descriptions/Definitions Functional [place] Measure: 0=Not Assessed/NA 4=Minimal Assistance 1=Total Assistance 5=Supervision or Setup 2=Maximal Assistance 6=Modified [place] 3=Moderate Assistance 7=Complete [place] ADL-Treatment Therapy Code Descriptions/Definitions Functional [place] Measure: 0=Not Assessed/NA 4=Minimal Assistance 1=Total Assistance 5=Supervision or Setup 2=Maximal Assistance 6=Modified [place] 3=Moderate Assistance 7=Complete [place] Therapy Quality Codes: 6 Independent with activity with or without an assistive device 5 Patient requires set up or clean up by helper. Patient completes activity by themselves 4 Supervision or touching assist (CGA). [place] provide cues , steadying assist 3 The helper provides less than half the effort to complete the activity 2 The helper provides more than half the effort to complete the activity 1 Dependent. The helper does all the effort to complete an activity 7 Patient refused to complete or attempt activity 9 The patient did not perform the activity before the current illness or injury 88 Not attempted due to Medical conditions or safety concerns Other Treatment Nursing reported Dr Corie SPRINGER'd ROM exercise for L fingers/thumb but not wrist. Pt helped transport herself to therapy room. Pt education to purpose for doing exercises. Pt completed 10 reps 5 different intrinsic exercises for fingers/ thumb times two sets. Provided with written HEP for hand exercises and pt return demo them. Encourage to do 3 times a day. Also completed AROM bilat shoulders and elbows and showered pt two exercises that she can do in her room for shoulders and elbows (pt completed 10 reps each). Pt returned to room per w/ c and left up in w/c, O2 in place at 1L/min, all needs met. Education OT Patient Education: Home exercise program, Instructions to caregiver (SO present during tx), Purpose of tx/functional activities Teaching Recipient: Patient, Significant Other Teaching Methods: Demonstration, Discussion Response to Teaching: Verbalize Understanding, Return Demonstration, Reinforcement Needed OT Short Term Goals Short Term Goals Time Frame: September 13, 2018 Bathing(FIM): 4 Lower Body Dressing(FIM): 4 Toileting(FIM): 4 Toilet/Commode Transfer(FIM): 4 (CGA) Additional Short Term Goals: 1-Demonstrate ADL Tasks, 2-Verbalize Understanding , 3-ImproveStrength/Nubia 1=Demonstrate adherence to instructed precautions during ADL tasks. 2=Patient will verbalize/demonstrate understanding of assistive devices/ modifications for ADL. 3=Patient will improve strength/tolerance for activity to enable patient to perform ADL's. OT Fci Goals Fci Goals Time Frame: Sep 27, 2018 Eating (FIM): 7 Eating (QC): 6 Groomin Oral Hygiene (QC): 6 Bathing(FIM): 5 Shower/Bathe Self (QC): 5 Upper Body Dressing(FIM): 6 Upper Body Dressing (QC): 6 Lower Body Dressing(FIM): 5 Lower Body Dressing (QC): 5 On/Off Footwear (QC): 5 Toileting(FIM): 5 Toileting Hygiene (QC): 5 Toilet/Commode Transfer(FIM): 5 Toilet/Commode Transfer (QC): 5 Shower Transfer(FIM): 5 Additional Goals: 1-Demonstrate ADL Tasks, 2-Verbalize Understanding, 3- ImproveStrength/Nubia 1=Demonstrate adherence to instructed precautions during ADL tasks. 2=Patient will verbalize/demonstrate understanding of assistive devices/ modifications for ADL. 3=Patient will improve strength/tolerance for activity to enable patient to perform ADL's. OT Education/Plan Discharge Recommendations Plan/Recommendations: Continue POC Treatment Plan/Plan of Care Patient would benefit from OT for education, treatment and training to promote independence in ADL's, mobility, safety and/or upper extremity function for ADL' s. Plan of Care: ADL Retraining, Functional Mobility, Group Exercise/Act as Ind, UE Funct Exercise/Act Treatment Duration: Sep 27, 2018 Frequency: At least 5 of 7 days/Wk (IRF) Estimated Hrs Per Day: 1.5 hours per day Agreement: Yes Rehab Potential: Fair Time/GCodes Start Time: 11:00 Stop Time: 11:30 Total Time Billed (hr/min): 30 Billed Treatment Time visit, 30 minutes exercise KACY NUR OT September 08, 2018 12:25
--- NOTE | 2018-09-08 13:30 | Physical Therapy Daily Note ---
PT Daily Note-Current Subjective pt reports pain in LE is bad but decreased when elevated. Agreeable to PT session. Pain Numeric Pain Scale: 9 Location: Right Location Body Site: Ankle Comment: occasional grimacing through tx session Appearance Pt sitting up in w/c upon arrival, family member present At end of session, pt requested and was assisted to bathroom then bed elevating RLE, call light, phone and bedside table within reach. Pt requesting ice packs for RLE at end of session, nursing advised Mental Status Patient Orientation: Person, Place, Time, Eyes Open Attachments: Oxygen splint LUE, Cast RLE Transfers Therapy Code Descriptions/Definitions Functional [place] Measure: 0=Not Assessed/NA 4=Minimal Assistance 1=Total Assistance 5=Supervision or Setup 2=Maximal Assistance 6=Modified [place] 3=Moderate Assistance 7=Complete [place] Therapy Quality Codes: 6 Independent with activity with or without an assistive device 5 Patient requires set up or clean up by helper. Patient completes activity by themselves 4 Supervision or touching assist (CGA). [place] provide cues , steadying assist 3 The helper provides less than half the effort to complete the activity 2 The helper provides more than half the effort to complete the activity 1 Dependent. The helper does all the effort to complete an activity 7 Patient refused to complete or attempt activity 9 The patient did not perform the activity before the current illness or injury 88 Not attempted due to Medical conditions or safety concerns Transfers (B, C, W/C) (FIM): 4 Scootin Rollin Supine to/from Sit: 5 Sit to/from Stand: 4 Bed to/from Chair: 4 difficulty maintaining NWB status RLE, pt does improve some when given instruction to hold foot "up and out" and pt's family member began assisting pt with remembering. Provided pt with shorter walker and did improve some with compliance on NWB RLE, was able to bear wt through L elbow on platform more easily Weight Bearing Right Lower Extremity: Right Non Weight Bearing Left Lower Extremity: Left Full Weight Bearing (L) hand NWB due to recent carpal tunnel release also NWB on LUE Gait Training Does the Patient Walk?: Yes Gait (FIM): 1 Distance (FIM): 1=up to 49 ft Distance: 8' x3 Gait Level of Assist: 4 Gait Persons Needed: 1 Gait Assistive Device: Walker Platform improved some with NWB RLE with shorter walker and instruction of holding R leg "up and out". Improved WB through L elbow. Fair quality hopping pattern until fatigue and does quickly fatigue Wheelchair Training Does the Pt Use a Wheelchair?: Yes Wheelchair (FIM): 2 Wheelchair Distance: 4=314-31 ft Distance: 50, 30, 25, 25, 20 Wheelchair Level of Assist: 5 (verb encouragement) Type of Wheelchair: Manual propels with RUE, propels and steers with LLE. Verb instruction and demonstration provided for use of leg rest on w/c, use of brakes, positioning w/ c before transfers, removable armrests. Pt able to return demo with min re instruction Exercises Seated Therapy Exercises: Ankle pumps (LLE), Sit to stand (NWB RLE and LUE, x10 ), Long arc quads, Hip flexion, Hamstring Curls, Hip abd/add (with knees extended) Seated Reps: 20 ((+) toe curls) Treatments transfer, safety, gait, toileting, bed mobility, functional activity, activity tolerance, balance, strength Assessment Current Status: Good Progress PT Short Term Goals Short Term Goals Time Frame: September 13, 2018 Gait (FIM): 1 Gait Distance Comment: 10' Gait Level of Assist: 4 Gait Assistive Device: Walker Platform PT Senior Technical Specialist Goals Mcfp Goals PT Mcfp Goals Time Frame: Sep 27, 2018 Transfers (B,C,W/C) (FIM): 5 Sit to Lying (QC): 6 Lying-Sitting on Side/Bed(QC): 6 Sit to Stand (QC): 4 Rollin Roll Left to Right (QC): 6 Chair/[id number]-Rtevk Xfer(QC): 4 Car Transfer (QC): 4 Gait (FIM): 1 Distance: 20' Walk 10 feet (QC): 4 Walk 10ft-Uneven Surface(QC): 4 Gait Level of Assist: 4 Gait Assistive Device: Walker Platform Wheelchair (FIM): 5 Distance: 150' Wheelchair Level of Assist: 5 Wheel 50 feet with 2 turns (QC: 4 Stairs (FIM): 1 # of Steps: 1 1 Step (curb) (QC): 3 PT Plan Treatment/Plan Treatment Plan: Continue Plan of Care Treatment Plan: Bed Mobility, Concurrent Therapy, Education, Functional Activity Nubia, Functional Strength, Group Therapy, Gait, Safety, Therapeutic Exercise, Transfers Treatment Duration: Sep 27, 2018 Frequency: At least 5 of 7 days/Wk (IRF) Estimated Hrs Per Day: 1.5 hours per day Patient and/or Family Agrees t: Yes Safety Risks/Education Patient Education: Gait Training, Transfer Techniques, W/C Management, Safety Issues Teaching Recipient: Patient Teaching Methods: Demonstration, Discussion Response to Teaching: Verbalize Understanding, Return Demonstration, Reinforcement Needed Time/GCodes Time In: 1130 Time Out: 1230 Total Billed Treatment Time: 60 Total Billed Treatment 1 visit, GT x 1 unit, EX x 1 unit, FA x 1 unit, WC x 1 unit JULIO CESAR ALVARADO STONE PLANER September 08, 2018 13:30
--- NOTE | 2018-09-08 14:37 | Physical Therapy Daily Note ---
PT Daily Note-Current Subjective Patient is on toilet pre tx, agrees to PT, is able to stand and pull up her own pants with CGA. Patient transferred to wheelchair and taken to gym. Patient has 10/10 pain in right ankle and she says nurse is aware of pain but says she cannot have any pain meds yet. Appearance Patient in bed post tx with nurse call, phone, tray, all needs met. Mental Status Patient Orientation: Person, Place, Situation Attachments: Oxygen Transfers Therapy Code Descriptions/Definitions Functional [place] Measure: 0=Not Assessed/NA 4=Minimal Assistance 1=Total Assistance 5=Supervision or Setup 2=Maximal Assistance 6=Modified [place] 3=Moderate Assistance 7=Complete [place] Therapy Quality Codes: 6 Independent with activity with or without an assistive device 5 Patient requires set up or clean up by helper. Patient completes activity by themselves 4 Supervision or touching assist (CGA). [place] provide cues , steadying assist 3 The helper provides less than half the effort to complete the activity 2 The helper provides more than half the effort to complete the activity 1 Dependent. The helper does all the effort to complete an activity 7 Patient refused to complete or attempt activity 9 The patient did not perform the activity before the current illness or injury 88 Not attempted due to Medical conditions or safety concerns Transfers (B, C, W/C) (FIM): 4 Scootin Rollin Supine to/from Sit: 5 Sit to/from Stand: 4 Bed to/from Chair: 4 CGA for stand pivot transfers, she performed 4 of them, 2 to the left and 2 to the right. Weight Bearing Right Lower Extremity: Right Non Weight Bearing Left Lower Extremity: Left Full Weight Bearing (L) hand NWB due to recent carpal tunnel release also NWB on LUE Exercises NuStep Minutes: 15 NuStep Workload: 4 (Performed only with left leg and right arm.) Treatments bed mobility and transfers, functional strengthening Assessment Current Status: Fair Progress improved transfers PT Short Term Goals Short Term Goals Time Frame: September 13, 2018 Gait (FIM): 1 Gait Distance Comment: 10' Gait Level of Assist: 4 Gait Assistive Device: Walker Platform Wheelchair Distance: 50, 30, 25, 25, 20 PT Ship Scaler Goals Ship Scaler Goals PT Ship Scaler Goals Time Frame: Sep 27, 2018 Transfers (B,C,W/C) (FIM): 5 Sit to Lying (QC): 6 Lying-Sitting on Side/Bed(QC): 6 Sit to Stand (QC): 4 Rollin Roll Left to Right (QC): 6 Chair/Uev-vm-[id number] Xfer(QC): 4 Car Transfer (QC): 4 Gait (FIM): 1 Distance: 20' Walk 10 feet (QC): 4 Walk 10ft-Uneven Surface(QC): 4 Gait Level of Assist: 4 Gait Assistive Device: Walker Platform Wheelchair (FIM): 5 Distance: 150' Wheelchair Level of Assist: 5 Wheel 50 feet with 2 turns (QC: 4 Stairs (FIM): 1 # of Steps: 1 1 Step (curb) (QC): 3 PT Plan Problem List Problem List: Activity Tolerance, Functional Strength, Safety, Balance, Gait, Transfer, Bed Mobility, ROM Treatment/Plan Treatment Plan: Continue Plan of Care Treatment Plan: Bed Mobility, Concurrent Therapy, Education, Functional Activity Nubia, Functional Strength, Group Therapy, Gait, Safety, Therapeutic Exercise, Transfers Treatment Duration: Sep 27, 2018 Frequency: At least 5 of 7 days/Wk (IRF) Estimated Hrs Per Day: 1.5 hours per day Patient and/or Family Agrees t: Yes Safety Risks/Education Patient Education: Transfer Techniques, Reviewed Precautions, Correct Positioning, Safety Issues Teaching Recipient: Patient Teaching Methods: Demonstration, Discussion Response to Teaching: Reinforcement Needed Time/GCodes Time In: 1400 Time Out: 1430 Total Billed Treatment Time: 30 Total Billed Treatment 1 visit EX 15' FA 15' MERISSA BERMAN PT September 08, 2018 14:37
--- NOTE | 2018-09-08 15:19 | NUR ---
provided prayer and Communion.
[2018-09-08 16:09] VITALS: BP 95/59
[2018-09-08] MEDS: ATORVASTATIN 40 MG (LIPITOR) TABLET PO SCH (20:44)
[2018-09-08] MEDS: traZODone 150 MG (DESYREL) TABLET PO SCH (20:44)
[2018-09-08] MEDS: MYRBETRIQ 50 MG TABLET PO SCH (20:45)
[2018-09-08] MEDS: KETOROLAC 15 MG/ML VIAL IV PRN (22:32)
[2018-09-09] MEDS: HYDROcodone/APAP 5 MG/325 MG (LORTAB) TAB PO PRN ×3 (03:28→12:52)
[2018-09-09 06:00] VITALS: BP 130/68
[2018-09-09] MEDS: inSUlin ASPART (NovoLOG) 1 UNIT/0.01 ML (CHARGE PER UNIT) SC SCH ×4 (06:09→20:08)
[2018-09-09] MEDS: LEVOTHYROXINE 150 MCG (LEVOTHROID) TAB PO SCH (06:09)
[2018-09-09] MEDS: metFORMIN 500 MG (GLUCOPHAGE) TAB PO SCH ×2 (06:09→16:50)
[2018-09-09] MEDS: CATHETER FLUSH 10 ML SYR IV SCH ×3 (06:09→21:20)
[2018-09-09] MEDS: RT-ADVAIR HFA 115/21 MCG PER PUFF IH SCH ×2 (07:12→19:18)
[2018-09-09] MEDS: RT-ALBUTEROL SULF 2.5 MG/3 ML PRE-MIX VIAL INH SCH ×2 (07:12→19:17)
[2018-09-09] MEDS: LACTULOSE SYRUP 10GM/15ML (ENULOSE) 30ML UDC PO SCH ×2 (08:25→21:19)
[2018-09-09] MEDS: SENNA W/DOCUSATE (SENOKOT S) TABLET PO SCH ×2 (08:25→21:20)
[2018-09-09] MEDS: NICOTINE 21 MG (NICODERM) PATCH TD SCH (08:25)
[2018-09-09] MEDS: MULTIVIT W/MINERALS TAB (THERAGRAN M) PO SCH (08:25)
[2018-09-09] MEDS: amLODIPine 10 MG (NORVASC) TAB PO SCH (08:26)
[2018-09-09] MEDS: SERTRALINE 100 MG (ZOLOFT) TAB PO SCH (08:26)
[2018-09-09] MEDS: hydrOXYzine (VISTARIL) 25 MG capsule/tablet PO SCH ×2 (08:26→21:20)
[2018-09-09] MEDS: SPIRONOLACTONE 25 MG (ALDACTONE) TAB PO SCH (08:26)
--- NOTE | 2018-09-09 08:32 | PM&R Progress Note ---
Subjective HPI/CC On Admission Date Seen by Provider: September 09, 2018 Time Seen by Provider: 08:30 Chief Complaint: Right ankle fracture with severe debility HPI: This is a 58yoWF clinic Pt of [facility] who suffered a fall ans sustained a right ankle fracture one day following left CTR surgery by Dr. Fontenot at [facility], I actually admitted her over the weekend, she underwent an uncomplicated surgical repair by Dr. Leon and he will be continuing to monitory her progress and place a cast today. Due to the fact of her comorbidities and mental illness and ARIAS she has had a very slow recovery and will be in need of intensive therapy in order to regain enough function to return back home instead of a nursing facility. She did have significant drowsiness following surgery and it was a concern that her ARIAS would cause CO2 Narcosis. ABG was checked and that was stable. She did have a BM two days ago and overall her pain seems to be pretty much under control as long as she takes in on schedule. Her boyfriend is at the bedside and agrees with the plan. Her prior level of functioning was independent at home without the use of assistive devices. At this current time she does have weight bearing restrictions on the right ankle. Subjective/Events-last exam Patient doing very well today but has a lot of pain so will evaluate changing pain meds Participating in all therapies Wants to go home soon since she has a lot of help at home so we will evaluate her for Wednesday to see if she can be successful at home. Maintained on CPAP at night Pain is controlled BM+ regimen maintained Lovenox for DXT PPx Monitoring BP and BS Conferred with RN Reviewed therapy notes Review of Systems General: Fatigue Musculoskeletal: leg pain Objective Exam Vital Signs Vital Signs Date Time Temp Pulse Resp B/P (MAP) Pulse Ox O2 Delivery O2 Flow Rate FiO2 09/09/18 09:00 Nasal Cannula 1.00 09/09/18 07:12 94 09/09/18 06:00 98.5 67 16 130/68 (88) Capillary Refill : Less Than 3 SecondsLess Than 3 Seconds General Appearance: No Apparent Distress, WD/WN, Chronically ill, Obese HEENT: PERRL/EOMI, Normal ENT Inspection, Pharynx Normal, Moist Mucous Me mbranes Neck: Full Range of Motion, Normal Inspection, Non Tender, Supple Respiratory: Chest Non Tender, Lungs Clear, Normal Breath Sounds, No Accessory Muscle Use, No Respiratory Distress Cardiovascular: Regular Rate, Rhythm, No Edema, No Gallop, No JVD, No Murmur Gastrointestinal: Normal Bowel Sounds, No Organomegaly, No Pulsatile Mass, Non Tender, Soft Back: Normal Inspection, No CVA Tenderness, No Vertebral Tenderness Extremity: Normal Capillary Refill, Normal Inspection, Normal Range of Motion (except right ankle/leg due to cast), Non Tender, No Calf Tenderness, No Pedal Edema Neurologic/Psychiatric: Alert, Oriented x3, No Motor/Sensory Deficits (except right leg from cast in place but moves toes on command), Normal Mood/Affect Skin: Normal Color, Warm/Dry Lymphatic: No Adenopathy Results/Procedures Lab Patient resulted labs reviewed. FIM Transfers Therapy Code Descriptions/Definitions Functional [place] Measure: 0=Not Assessed/NA 4=Minimal Assistance 1=Total Assistance 5=Supervision or Setup 2=Maximal Assistance 6=Modified [place] 3=Moderate Assistance 7=Complete [place] Therapy Quality Codes: 6 Independent with activity with or without an assistive device 5 Patient requires set up or clean up by helper. Patient completes activity by themselves 4 Supervision or touching assist (CGA). [place] provide cues , steadying assist 3 The helper provides less than half the effort to complete the activity 2 The helper provides more than half the effort to complete the activity 1 Dependent. The helper does all the effort to complete an activity 7 Patient refused to complete or attempt activity 9 The patient did not perform the activity before the current illness or injury 88 Not attempted due to Medical conditions or safety concerns Transfers (B, C, W/C) (FIM): 4 Scootin Rollin Roll Left to Right (QC): 4 Supine to/from Sit: 5 Sit to/from Stand: 4 Sit to Lying (QC): 4 Sit to Stand (QC): 3 Chair/Hjv-ds-Zfskk Xfer(QC): 3 Bed to/from Chair: 4 Car Transfer (QC): 3 Gait Training Does the Patient Walk?: Yes Gait (FIM): 1 Distance (FIM): 1=up to 49 ft Distance: 8' x3 Gait Level of Assist: 4 Gait Persons Needed: 1 Gait Assistive Device: Walker Platform Wheelchair Training Does the Pt Use a Wheelchair?: Yes Wheelchair (FIM): 2 Wheelchair Distance: 8=060-51 ft Distance: 50, 30, 25, 25, 20 Wheelchair Level of Assist: 5 (verb encouragement) Type of Wheelchair: Manual Stair Training Stairs (FIM): 88 Mental Status/Objective Comprehension: 7 Expression: 7 Social Interaction: 7 Problem Solvin Memory: 7 ADL-Treatment Feedin (Pt reports feeding self after set up) Eating (QC): 5 Groomin (setup) Oral Hygiene (QC): 4 Bathin (Supervision. Shower bench, grab bar, hand held shower) Shower/Bathe Self (QC): 3 Upper Extremity Dressin (setup) Upper Body Dressing (QC): 4 Lower Extremity Dressin (Pt educ mod technique. SBA, setup. Donned sock on L foot with setup) Lower Body Dressing (QC): 3 Toiletin (SBA) Toileting Hygiene (QC): 2 Toilet/Commode Transfer: 4 (CGA, tall toilet, grab bar) Toilet Transfer (QC): 3 Shower: 4 (CGA, shower bench, grab bar) Assessment/Plan Assessment and Plan Assess & Plan/Chief Complaint Assessment: Debility Right ankle fracture s/p repair POD # [address] Fontenot 2 weeks ago Schizophrenia ARIAS on CPAP HTN Obesity DVT PPx Plan: IRF protocols Pain control Lovenox for DVT PPx CPAP BM regimen Increase ability to ambulate with case right ankle Fall risk Evaluate plan of care Inquired with Dr Fontenot regarding OT therapy on left hand wrist Change pain meds (1) RIGHT ANKLE FRACTURE (2) Debility (3) Schizophrenia (4) Hypertension (5) Oxygen dependent (6) Carpal tunnel syndrome, left (7) ARIAS on CPAP (8) Fall (9) Fibula fracture (10) Medial malleolar fracture (11) Diabetes mellitus (12) Hypothyroidism SUSAN GARZA DO September 09, 2018 08:32
--- NOTE | 2018-09-09 09:37 | Occupational Ther Daily Note ---
OT Current Status-Daily Note Subjective Pt in bed, agrees to therapy. Pt reports 8/10 pain in right LE, requests pain medication. RN notified. Mental Status/Objective Therapy Code Descriptions/Definitions Functional [place] Measure: 0=Not Assessed/NA 4=Minimal Assistance 1=Total Assistance 5=Supervision or Setup 2=Maximal Assistance 6=Modified [place] 3=Moderate Assistance 7=Complete [place] Attachments: Oxygen ADL-Treatment Pt declined shower secondary to having one yesterday, but requests sponge bath. Supine to sit with SBA. Transfer to w/c with platform FWW with CGA for balance. To restroom via w/c. Transfer w/c <-> toilet with CGA using grab bars for safety. Pt able to complete toileting hygiene. Sponge bath completed seated in w/c. Upper body bathing completed with SBA. Pt able to wash lower body with SBA. Right lower leg not addressed secondary to cast. Don pullover shirt with set up. Pt donned underwear and shorts with SBA for balance during pant hike. Cues for NWB right LE. Pt doffed/donned left sock with set up. Grooming tasks completed seated at sink. Pt brushed teeth and combed hair with set up. Therapy Code Descriptions/Definitions Functional [place] Measure: 0=Not Assessed/NA 4=Minimal Assistance 1=Total Assistance 5=Supervision or Setup 2=Maximal Assistance 6=Modified [place] 3=Moderate Assistance 7=Complete [place] Therapy Quality Codes: 6 Independent with activity with or without an assistive device 5 Patient requires set up or clean up by helper. Patient completes activity by themselves 4 Supervision or touching assist (CGA). [place] provide cues , steadying assist 3 The helper provides less than half the effort to complete the activity 2 The helper provides more than half the effort to complete the activity 1 Dependent. The helper does all the effort to complete an activity 7 Patient refused to complete or attempt activity 9 The patient did not perform the activity before the current illness or injury 88 Not attempted due to Medical conditions or safety concerns Grooming (FIM): 5 Oral Hygiene (QC): 5 Bathing (FIM): 5 Shower/Bathe Self (QC): 4 Upper Body (FIM): 5 Upper Body Dressing (QC): 5 Lower Body Dressing (FIM): 5 Lower Body Dressing (QC): 4 On/Off Footwear (QC): 5 Toileting (FIM): 5 Toilet/Commode Transfer (FIM): 4 (CGA) Toilet Transfer (QC): 4 Other Treatment To therapy gym via w/c. Pt completed UE exercises to increase strength for ADLs and transfers. Pt performed right shoulder flexion and abduction x15 reps with 1 # weight. Right biceps curls, triceps extension, and wrist flex/ext x15 reps with 2# weights. Rest breaks between exercises. Pt performed AROM right shoulder and elbow. Pt was able to demonstrate right finger/thumb ROM exercises that were introduced yesterday and states she has been completing them in her room. Graded clothespin task with right hand to increase residential mortgage underwriter/pinch strength. Pt completed resistance peg activity with right hand to increase strength and coordination/manipulation skills. Pt completed grooved pegboard activity with right hand to increase fine motor coordination. Pt reports fatigue, but is able to complete UE tasks with occasional rest breaks. Pt returned to room. Transfer to bed with platform FWW with SBA, cues for safety. Sit to supine with SBA. Pt resting in bed with needs met after session. OT Short Term Goals Short Term Goals Time Frame: September 13, 2018 Bathing(FIM): 4 Lower Body Dressing(FIM): 4 Toileting(FIM): 4 Toilet/Commode Transfer(FIM): 4 (CGA) Additional Short Term Goals: 1-Demonstrate ADL Tasks, 2-Verbalize Understanding , 3-ImproveStrength/Nubia 1=Demonstrate adherence to instructed precautions during ADL tasks. 2=Patient will verbalize/demonstrate understanding of assistive devices/ modifications for ADL. 3=Patient will improve strength/tolerance for activity to enable patient to perform ADL's. OT Test Car Driver Goals Residential Goals Time Frame: Sep 27, 2018 Eating (FIM): 7 Eating (QC): 6 Groomin Oral Hygiene (QC): 6 Bathing(FIM): 5 Shower/Bathe Self (QC): 5 Upper Body Dressing(FIM): 6 Upper Body Dressing (QC): 6 Lower Body Dressing(FIM): 5 Lower Body Dressing (QC): 5 On/Off Footwear (QC): 5 Toileting(FIM): 5 Toileting Hygiene (QC): 5 Toilet/Commode Transfer(FIM): 5 Toilet/Commode Transfer (QC): 5 Shower Transfer(FIM): 5 Additional Goals: 1-Demonstrate ADL Tasks, 2-Verbalize Understanding, 3- ImproveStrength/Nubia 1=Demonstrate adherence to instructed precautions during ADL tasks. 2=Patient will verbalize/demonstrate understanding of assistive devices/ modifications for ADL. 3=Patient will improve strength/tolerance for activity to enable patient to perform ADL's. OT Education/Plan Discharge Recommendations Plan/Recommendations: Continue POC Treatment Plan/Plan of Care Patient would benefit from OT for education, treatment and training to promote independence in ADL's, mobility, safety and/or upper extremity function for ADL' s. Plan of Care: ADL Retraining, Functional Mobility, Group Exercise/Act as Ind, UE Funct Exercise/Act Treatment Duration: Sep 27, 2018 Frequency: At least 5 of 7 days/Wk (IRF) Estimated Hrs Per Day: 1.5 hours per day Agreement: Yes Rehab Potential: Fair Time/GCodes Start Time: 08:00 Stop Time: 09:30 Total Time Billed (hr/min): 90 Billed Treatment Time 1 visit, ADLx3(50minutes), EXx3(40minutes) BENNIE BUSBY OT September 09, 2018 09:37
--- NOTE | 2018-09-09 11:28 | NUR ---
provided prayer and Communion.
--- NOTE | 2018-09-09 11:51 | Physical Therapy Daily Note ---
PT Daily Note-Current Subjective Pt laying Supine in bed upon arrival. Pt agrees to PT and asked to use restroom. Pain Numeric Pain Scale: 5-Moderate Pain Location: Right Location Body Site: Ankle Pain Description: Ache Mental Status Patient Orientation: Person, Place, Time, Situation Attachments: Other-See Comments (Cast on R LE and brace for L UE) Transfers Therapy Code Descriptions/Definitions Functional [place] Measure: 0=Not Assessed/NA 4=Minimal Assistance 1=Total Assistance 5=Supervision or Setup 2=Maximal Assistance 6=Modified [place] 3=Moderate Assistance 7=Complete [place] Therapy Quality Codes: 6 Independent with activity with or without an assistive device 5 Patient requires set up or clean up by helper. Patient completes activity by themselves 4 Supervision or touching assist (CGA). [place] provide cues , steadying assist 3 The helper provides less than half the effort to complete the activity 2 The helper provides more than half the effort to complete the activity 1 Dependent. The helper does all the effort to complete an activity 7 Patient refused to complete or attempt activity 9 The patient did not perform the activity before the current illness or injury 88 Not attempted due to Medical conditions or safety concerns Scootin Supine to/from Sit: 5 Sit to/from Stand: 4 Sit to Lying (QC): 5 Sit to Stand (QC): 4 Weight Bearing Right Lower Extremity: Right Non Weight Bearing Left Lower Extremity: Left Full Weight Bearing (L) hand NWB due to recent carpal tunnel release also NWB on LUE Gait Training Does the Patient Walk?: No and Walking Goal NOT indicated Wheelchair Training Does the Pt Use a Wheelchair?: Yes Wheelchair (FIM): 4 Wheelchair Distance: 3=150 ft Distance: 150' Wheelchair Level of Assist: 4 Wheel 50 ft with 2 turns (QC): 4 Wheel 150 ft (QC): 4 Type of Wheelchair: Manual Exercises Supine Ex: Ankle pumps, Quad Set, Glut sets, Heel Slides, Hip abd/add Supine Reps: 15 NuStep Minutes: 10 (with a couple of RB) NuStep Workload: 4 Treatments Pt transfers from Supine to EOB then SPT from EOB to W/C using Platform walker. Pt uses restroom and is able to perform pericare. Pt propels W/C in hallway approx. until fatigued, difficulty with turns. Pt uses NuStep for 10m at WL 4 with a couple of short RB. Pt returns to room to rest at EOB. Pt returns to Supine in bed and completes Supine Ex at end of tx. Pt has all needs met. Assessment Current Status: Good Progress Pt is motivated during tx but is limited by NWB for both R LE & L UE. Pt does not follow NWB status for R LE and needs VC for redirection. PT Short Term Goals Short Term Goals Time Frame: September 13, 2018 Gait (FIM): 1 Gait Distance Comment: 10' Gait Level of Assist: 4 Gait Assistive Device: Walker Platform Wheelchair Distance: 50, 30, 25, 25, [address] Mri Technologist Goals PT Longterm Goals Time Frame: Sep 27, 2018 Transfers (B,C,W/C) (FIM): 5 Sit to Lying (QC): 6 Lying-Sitting on Side/Bed(QC): 6 Sit to Stand (QC): 4 Rollin Roll Left to Right (QC): 6 Chair/Agk-pm-Xvnyc Xfer(QC): 4 Car Transfer (QC): 4 Gait (FIM): 1 Distance: 20' Walk 10 feet (QC): 4 Walk 10ft-Uneven Surface(QC): 4 Gait Level of Assist: 4 Gait Assistive Device: Walker Platform Wheelchair (FIM): 5 Distance: 150' Wheelchair Level of Assist: 5 Wheel 50 feet with 2 turns (QC: 4 Stairs (FIM): 1 # of Steps: 1 1 Step (curb) (QC): 3 PT Plan Problem List Problem List: Activity Tolerance, Functional Strength, Safety, Balance, Gait, Transfer Treatment/Plan Treatment Plan: Continue Plan of Care Treatment Plan: Bed Mobility, Concurrent Therapy, Education, Functional Activity Nubia, Functional Strength, Group Therapy, Gait, Safety, Therapeutic Exercise, Transfers Treatment Duration: Sep 27, 2018 Frequency: At least 5 of 7 days/Wk (IRF) Estimated Hrs Per Day: 1.5 hours per day Patient and/or Family Agrees t: Yes Safety Risks/Education Patient Education: Correct Positioning, W/C Management, Safety Issues Teaching Recipient: Patient Teaching Methods: Discussion Response to Teaching: Verbalize Understanding, Reinforcement Needed Time/GCodes Time In: 1045 Time Out: 1145 Total Billed Treatment Time: 60 Total Billed Treatment 1, WCH (15m), EX (20m) & FA x2 (25m) G Codes Necessary: No TREIBER,KRISTINE FITNESS SERVICES MANAGER September 09, 2018 11:51
[2018-09-09] MEDS: ENOXAPARIN 40 MG/0.4 ML (LOVENOX) SYR SC SCH ×2 (11:59→21:19)
--- NOTE | 2018-09-09 13:01 | Physical Therapy Daily Note ---
PT Daily Note-Current Subjective Pt. and watching their favorite soap opera . Pt. states her right ankle foot pain is at 10/10. Pt. does agree to exercise and bed mobility but not up on feet secondary to pain level. Pt. states she has sat up in recliner but it is not comfortable after about 1 hr Pain Numeric Pain Scale: 10-Worst Possible Pain Location: Right Location Body Site: Foot Pain Description: Stabbing Mental Status Patient Orientation: Normal For Age Attachments: Other-See Comments (casted right foot/ankle) Transfers Therapy Code Descriptions/Definitions Functional [place] Measure: 0=Not Assessed/NA 4=Minimal Assistance 1=Total Assistance 5=Supervision or Setup 2=Maximal Assistance 6=Modified [place] 3=Moderate Assistance 7=Complete [place] Therapy Quality Codes: 6 Independent with activity with or without an assistive device 5 Patient requires set up or clean up by helper. Patient completes activity by themselves 4 Supervision or touching assist (CGA). [place] provide cues , steadying assist 3 The helper provides less than half the effort to complete the activity 2 The helper provides more than half the effort to complete the activity 1 Dependent. The helper does all the effort to complete an activity 7 Patient refused to complete or attempt activity 9 The patient did not perform the activity before the current illness or injury 88 Not attempted due to Medical conditions or safety concerns Rollin pt. instructed in positioning herself on left side with pillows supporting RLE. pt. sleeps in this position at home and likes to be off her back Weight Bearing Right Lower Extremity: Right Non Weight Bearing Left Lower Extremity: Left Full Weight Bearing (L) hand NWB due to recent carpal tunnel release also NWB on LUE Exercises Supine Ex: Bridging, Ankle pumps, Quad Set, Rolling, Glut sets, Heel Slides, Short Arc Quads, Scooting, Straight leg raise, Hip abd/add Supine Reps: 15 Treatments rolling and positioning instructions Assessment Current Status: Good Progress pain limits Rx, PT Short Term Goals Short Term Goals Time Frame: September 13, 2018 Gait (FIM): 1 Gait Distance Comment: 10' Gait Level of Assist: 4 Gait Assistive Device: Walker Platform Wheelchair Distance: 150' PT Private Pilot Goals Long-Term Goals PT Private Pilot Goals Time Frame: Sep 27, 2018 Transfers (B,C,W/C) (FIM): 5 Sit to Lying (QC): 6 Lying-Sitting on Side/Bed(QC): 6 Sit to Stand (QC): 4 Rollin Roll Left to Right (QC): 6 Chair/Ipi-ym-Igagp Xfer(QC): 4 Car Transfer (QC): 4 Gait (FIM): 1 Distance: 20' Walk 10 feet (QC): 4 Walk 10ft-Uneven Surface(QC): 4 Gait Level of Assist: 4 Gait Assistive Device: Walker Platform Wheelchair (FIM): 5 Distance: 150' Wheelchair Level of Assist: 5 Wheel 50 feet with 2 turns (QC: 4 Stairs (FIM): 1 # of Steps: 1 1 Step (curb) (QC): 3 PT Plan Treatment/Plan Treatment Plan: Continue Plan of Care Treatment Plan: Bed Mobility, Concurrent Therapy, Education, Functional Activity Nubia, Functional Strength, Group Therapy, Gait, Safety, Therapeutic Exercise, Transfers Treatment Duration: Sep 27, 2018 Frequency: At least 5 of 7 days/Wk (IRF) Estimated Hrs Per Day: 1.5 hours per day Patient and/or Family Agrees t: Yes Safety Risks/Education Patient Education: Transfer Techniques, Correct Positioning, Disease Process, Safety Issues Teaching Recipient: Patient, Significant Other Teaching Methods: Demonstration, Discussion Response to Teaching: Verbalize Understanding, Return Demonstration, Reinforcement Needed Time/GCodes Time In: 1230 Time Out: 1300 Total Billed Treatment Time: 30 Total Billed Treatment 1,FA10m,EX20m G Codes Necessary: ISABELLE Abrams BUILDER'S LABOURER September 09, 2018 13:01
[2018-09-09] MEDS: HYDROcodone/APAP 10 MG/325 MG (LORTAB) TAB PO PRN ×2 (16:50→21:26)
[2018-09-09 17:21] VITALS: BP 128/72
[2018-09-09] MEDS: KETOROLAC 15 MG/ML VIAL IV PRN (20:01)
[2018-09-09] MEDS ORDERED: OMEGA 3 (FISH OIL) 1000 MG CAP PO SCH (21:00)
[2018-09-09] MEDS: MYRBETRIQ 50 MG TABLET PO SCH (21:18)
[2018-09-09] MEDS: traZODone 150 MG (DESYREL) TABLET PO SCH (21:19)
[2018-09-09] MEDS: ATORVASTATIN 40 MG (LIPITOR) TABLET PO SCH (21:20)
[2018-09-10] MEDS: HYDROcodone/APAP 10 MG/325 MG (LORTAB) TAB PO PRN ×6 (01:28→22:42)
[2018-09-10 05:53] VITALS: BP 108/73
[2018-09-10] MEDS: LEVOTHYROXINE 150 MCG (LEVOTHROID) TAB PO SCH (05:53)
[2018-09-10] MEDS: metFORMIN 500 MG (GLUCOPHAGE) TAB PO SCH ×2 (05:53→17:53)
[2018-09-10] MEDS: OMEGA 3 (FISH OIL) 1000 MG CAP PO SCH ×3 (05:56→17:53)
[2018-09-10] MEDS: CATHETER FLUSH 10 ML SYR IV SCH ×3 (05:56→21:20)
[2018-09-10] MEDS: inSUlin ASPART (NovoLOG) 1 UNIT/0.01 ML (CHARGE PER UNIT) SC SCH ×4 (05:56→20:35)
[2018-09-10] MEDS: RT-ALBUTEROL SULF 2.5 MG/3 ML PRE-MIX VIAL INH SCH ×2 (07:46→19:34)
[2018-09-10] MEDS: RT-ADVAIR HFA 115/21 MCG PER PUFF IH SCH ×2 (07:47→19:34)
[2018-09-10] MEDS: SENNA W/DOCUSATE (SENOKOT S) TABLET PO SCH ×2 (09:28→21:20)
[2018-09-10] MEDS: MULTIVIT W/MINERALS TAB (THERAGRAN M) PO SCH (09:28)
[2018-09-10] MEDS: hydrOXYzine (VISTARIL) 25 MG capsule/tablet PO SCH ×2 (09:28→21:20)
[2018-09-10] MEDS: NICOTINE 21 MG (NICODERM) PATCH TD SCH (09:28)
[2018-09-10] MEDS: SERTRALINE 100 MG (ZOLOFT) TAB PO SCH (09:29)
[2018-09-10] MEDS: ENOXAPARIN 40 MG/0.4 ML (LOVENOX) SYR SC SCH ×2 (09:30→21:20)
[2018-09-10 09:32] VITALS: BP 122/65
[2018-09-10] MEDS: SPIRONOLACTONE 25 MG (ALDACTONE) TAB PO SCH (09:44)
[2018-09-10] MEDS: amLODIPine 10 MG (NORVASC) TAB PO SCH (09:44)
[2018-09-10] MEDS: LACTULOSE SYRUP 10GM/15ML (ENULOSE) 30ML UDC PO SCH ×2 (09:45→21:19)
--- NOTE | 2018-09-10 10:16 | Physical Therapy Daily Note ---
PT Daily Note-Current Subjective Pt agreeable to PT session. States she is trying hard to keep R foot up off of floor, but is very difficulty at times. Pain Numeric Pain Scale: 5-Moderate Pain Comment: R foot Appearance Upon arrival, pt awake and alert in bed. NEW GRAD RN present in pt's room during part of session At end of session, pt in bed, HOB elevated, RLE elevated on 2 pillows, call light, phone and bedside table within reach Mental Status Patient Orientation: Person, Place, Time, Eyes Open, Situation Attachments: Oxygen (1L/NC) cast RLE, brace LUE Transfers Therapy Code Descriptions/Definitions Functional [place] Measure: 0=Not Assessed/NA 4=Minimal Assistance 1=Total Assistance 5=Supervision or Setup 2=Maximal Assistance 6=Modified [place] 3=Moderate Assistance 7=Complete [place] Therapy Quality Codes: 6 Independent with activity with or without an assistive device 5 Patient requires set up or clean up by helper. Patient completes activity by themselves 4 Supervision or touching assist (CGA). [place] provide cues , steadying assist 3 The helper provides less than half the effort to complete the activity 2 The helper provides more than half the effort to complete the activity 1 Dependent. The helper does all the effort to complete an activity 7 Patient refused to complete or attempt activity 9 The patient did not perform the activity before the current illness or injury 88 Not attempted due to Medical conditions or safety concerns Transfers (B, C, W/C) (FIM): 4 Scootin (use of bedrail) Rollin (use of bedrail) Supine to/from Sit: 5 (supine to sit HOB slightly elevated, use of bedrail. sit to supine with bed level and no use of bedrail, pt requiring no assit) Sit to/from Stand: 5 (height of bed slightly elevated sit ot stand, verb inst to hold RLE up and out for NWB RLE. good technique stand to sit) Bed to/from Chair: 4 (CGA provided bed to W/C, constant verb inst for NWB RLE. SBA provided W/C to bed with decreased inst req for WB precautions) Pt good at following NWB precautions for LUE Weight Bearing Right Lower Extremity: Right Non Weight Bearing Left Lower Extremity: Left Full Weight Bearing (L) hand NWB due to recent carpal tunnel release also NWB on LUE Wheelchair Training Does the Pt Use a Wheelchair?: Yes Wheelchair (FIM): 5 Wheelchair Distance: 3=150 ft Distance: 240' with several brief rest breaks 2^ SOA and fatigue Wheelchair Level of Assist: 5 Type of Wheelchair: Manual locomotion in w/c using RUE and LLE to maneuver, RLE on pedal, LUE in lap, occasional verb instruction for technique. Pt maneuvering W/C forward in straight paths, backward with occasional path deviation, left and right turns, through doorways, around obstacles, weaving around chairs. Pt occasionally running into furniture but able to physically maneuver around with verb instruction Treatments bed mobility, transfers, W/C mobility, strengthening, functional mobility, strengthening, activity tolerance Assessment Current Status: Good Progress continue with some difficulty maintaining true NWB precaution of RLE. PT Short Term Goals Short Term Goals Time Frame: September 13, 2018 Gait (FIM): 1 Gait Distance Comment: 10' Gait Level of Assist: 4 Gait Assistive Device: Walker Platform Wheelchair Distance: 150' PT Halfway Goals Energy Manager Goals PT Energy Manager Goals Time Frame: Sep 27, 2018 Transfers (B,C,W/C) (FIM): 5 Sit to Lying (QC): 6 Lying-Sitting on Side/Bed(QC): 6 Sit to Stand (QC): 4 Rollin Roll Left to Right (QC): 6 Chair/Joa-lu-Shkon Xfer(QC): 4 Car Transfer (QC): 4 Gait (FIM): 1 Distance: 20' Walk 10 feet (QC): 4 Walk 10ft-Uneven Surface(QC): 4 Gait Level of Assist: 4 Gait Assistive Device: Walker Platform Wheelchair (FIM): 5 Distance: 150' Wheelchair Level of Assist: 5 Wheel 50 feet with 2 turns (QC: 4 Stairs (FIM): 1 # of Steps: 1 1 Step (curb) (QC): 3 PT Plan Treatment/Plan Treatment Plan: Continue Plan of Care Treatment Plan: Bed Mobility, Concurrent Therapy, Education, Functional Activity Nubia, Functional Strength, Group Therapy, Gait, Safety, Therapeutic E xercise, Transfers Treatment Duration: Sep 27, 2018 Frequency: At least 5 of 7 days/Wk (IRF) Estimated Hrs Per Day: 1.5 hours per day Patient and/or Family Agrees t: Yes Safety Risks/Education Patient Education: Transfer Techniques, Reviewed Precautions, W/C Management, Safety Issues Teaching Recipient: Patient Teaching Methods: Demonstration, Discussion Response to Teaching: Verbalize Understanding, Return Demonstration, Reinforcement Needed Time/GCodes Time In: 800 Time Out: 830 Total Billed Treatment Time: 30 Total Billed Treatment 1 visit, WC x 1 unit, FA x 1 unit JULIO CESAR ALVARADO PTA September 10, 2018 10:16
--- NOTE | 2018-09-10 10:39 | PM&R Progress Note ---
Subjective HPI/CC On Admission Date Seen by Provider: September 10, 2018 Time Seen by Provider: 10:45 Chief Complaint: Right ankle fracture with severe debility HPI: This is a 58yoWF clinic Pt of [facility] who suffered a fall ans sustained a right ankle fracture one day following left CTR surgery by Dr. Fontenot at [facility], I actually admitted her over the weekend, she underwent an uncomplicated surgical repair by Dr. Leon and he will be continuing to monitory her progress and place a cast today. Due to the fact of her comorbidities and mental illness and ARIAS she has had a very slow recovery and will be in need of intensive therapy in order to regain enough function to return back home instead of a nursing facility. She did have significant drowsiness following surgery and it was a concern that her ARIAS would cause CO2 Narcosis. ABG was checked and that was stable. She did have a BM two days ago and overall her pain seems to be pretty much under control as long as she takes in on schedule. Her boyfriend is at the bedside and agrees with the plan. Her prior level of functioning was independent at home without the use of assistive devices. At this current time she does have weight bearing restrictions on the right ankle. Subjective/Events-last exam Patient doing very well since increasing the Lortab from 5 to 10/325 Boyfriend at the bedside Participating in all therapies as required Wants to go home soon Maintained on CPAP at night but did not wear it last night for some reason Pain is controlled now BM+ regimen maintained Lovenox for DXT PPx is causing no side effects of bleeding Monitoring BP and BS Conferred with RN Reviewed therapy notes Weaning off oxygen since she does not wear that at home Review of Systems Musculoskeletal: leg pain Objective Exam Vital Signs Vital Signs Date Time Temp Pulse Resp B/P (MAP) Pulse Ox O2 Delivery O2 Flow Rate FiO2 09/10/18 09:32 70 18 122/65 (84) 96 Nasal Cannula 1.00 09/10/18 05:53 97.9 Capillary Refill : Less Than 3 SecondsLess Than 3 Seconds General Appearance: No Apparent Distress, WD/WN, Chronically ill, Obese HEENT: PERRL/EOMI, Normal ENT Inspection, Pharynx Normal, Moist Mucous Membranes Neck: Full Range of Motion, Normal Inspection, Non Tender, Supple Respiratory: Chest Non Tender, Lungs Clear, Normal Breath Sounds, No Accessory Muscle Use, No Respiratory Distress Cardiovascular: Regular Rate, Rhythm, No Edema, No Gallop, No JVD, No Murmur Gastrointestinal: Normal Bowel Sounds, No Organomegaly, No Pulsatile Mass, Non Tender, Soft Back: Normal Inspection, No CVA Tenderness, No Vertebral Tenderness Extremity: Normal Capillary Refill, Normal Inspection, Normal Range of Motion (except right ankle/leg due to cast), Non Tender, No Calf Tenderness, No Pedal Edema Neurologic/Psychiatric: Alert, Oriented x3, No Motor/Sensory Deficits (except right leg from cast in place but moves toes on command), Normal Mood/Affect Skin: Normal Color, Warm/Dry Lymphatic: No Adenopathy Results/Procedures Lab Patient resulted labs reviewed. FIM Transfers Therapy Code Descriptions/Definitions Functional [place] Measure: 0=Not Assessed/NA 4=Minimal Assistance 1=Total Assistance 5=Supervision or Setup 2=Maximal Assistance 6=Modified [place] 3=Moderate Assistance 7=Complete [place] Therapy Quality Codes: 6 Independent with activity with or without an assistive device 5 Patient requires set up or clean up by helper. Patient completes activity by themselves 4 Supervision or touching assist (CGA). [place] provide cues , steadying assist 3 The helper provides less than half the effort to complete the activity 2 The helper provides more than half the effort to complete the activity 1 Dependent. The helper does all the effort to complete an activity 7 Patient refused to complete or attempt activity 9 The patient did not perform the activity before the current illness or injury 88 Not attempted due to Medical conditions or safety concerns Transfers (B, C, W/C) (FIM): 4 Scootin (use of bedrail) Rollin (use of bedrail) Roll Left to Right (QC): 4 Supine to/from Sit: 5 (supine to sit HOB slightly elevated, use of bedrail. sit to supine with bed level and no use of bedrail, pt requiring no assit) Sit to/from Stand: 5 (height of bed slightly elevated sit ot stand, verb inst to hold RLE up and out for NWB RLE. good technique stand to sit) Sit to Lying (QC): 5 Sit to Stand (QC): 4 Chair/Xqm-nr-Rdvzz Xfer(QC): 3 Bed to/from Chair: 4 (CGA provided bed to W/C, constant verb inst for NWB RLE. SBA provided W/C to bed with decreased inst req for WB precautions) Car Transfer (QC): 3 Gait Training Does the Patient Walk?: No and Walking Goal NOT indicated Gait (FIM): 1 Distance (FIM): 1=up to 49 ft Distance: 8' x3 Gait Level of Assist: 4 Gait Persons Needed: 1 Gait Assistive Device: Walker Platform Wheelchair Training Does the Pt Use a Wheelchair?: Yes Wheelchair (FIM): 5 Wheelchair Distance: 3=150 ft Distance: 240' with several brief rest breaks 2^ SOA and fatigue Wheelchair Level of Assist: 5 Wheel 50 ft with 2 turns (QC): 4 Wheel 150 ft (QC): 4 Type of Wheelchair: Manual Stair Training Stairs (FIM): 88 Mental Status/Objective Comprehension: 7 Expression: 7 Social Interaction: 7 Problem Solvin Memory: 7 ADL-Treatment Feedin (Pt reports feeding self after set up) Eating (QC): 5 Groomin Oral Hygiene (QC): 5 Bathin Shower/Bathe Self (QC): 4 Upper Extremity Dressin Upper Body Dressing (QC): 5 Lower Extremity Dressin Lower Body Dressing (QC): 4 On/Off Footwear (QC): 5 Toiletin Toileting Hygiene (QC): 2 Toilet/Commode Transfer: 4 (CGA) Toilet Transfer (QC): 4 Shower: 4 (CGA, shower bench, grab bar) Assessment/Plan Assessment and Plan Assess & Plan/Chief Complaint Assessment: Debility Right ankle fracture s/p repair POD # [address] Fontenot 2 weeks ago Schizophrenia ARIAS on CPAP HTN Obesity DVT PPx Plan: IRF protocols Pain control Lovenox for DVT PPx CPAP BM regimen Increase ability to ambulate with case right ankle Fall risk Evaluate plan of care Increased dose of Lortab pain med (1) RIGHT ANKLE FRACTURE (2) Debility (3) Schizophrenia (4) Hypertension (5) Oxygen dependent (6) Carpal tunnel syndrome, left (7) ARIAS on CPAP (8) Fall (9) Fibula fracture (10) Medial malleolar fracture (11) Diabetes mellitus (12) Hypothyroidism SUSAN GARZA DO September 10, 2018 10:39
[2018-09-10 17:01] VITALS: BP 112/72
[2018-09-10] MEDS: MYRBETRIQ 50 MG TABLET PO SCH (21:19)
[2018-09-10] MEDS: traZODone 150 MG (DESYREL) TABLET PO SCH (21:20)
[2018-09-10] MEDS: ATORVASTATIN 40 MG (LIPITOR) TABLET PO SCH (21:20)
[2018-09-11] MEDS: HYDROcodone/APAP 10 MG/325 MG (LORTAB) TAB PO PRN ×5 (02:52→20:46)
[2018-09-11 05:31] VITALS: BP 131/81
[2018-09-11] MEDS: LEVOTHYROXINE 150 MCG (LEVOTHROID) TAB PO SCH (06:12)
[2018-09-11] MEDS: OMEGA 3 (FISH OIL) 1000 MG CAP PO SCH ×3 (06:12→16:30)
[2018-09-11] MEDS: metFORMIN 500 MG (GLUCOPHAGE) TAB PO SCH ×2 (06:12→16:31)
[2018-09-11] MEDS: CATHETER FLUSH 10 ML SYR IV SCH ×3 (06:13→20:46)
[2018-09-11] MEDS: inSUlin ASPART (NovoLOG) 1 UNIT/0.01 ML (CHARGE PER UNIT) SC SCH ×4 (06:13→20:52)
[2018-09-11] MEDS: RT-ADVAIR HFA 115/21 MCG PER PUFF IH SCH ×2 (07:06→19:38)
[2018-09-11] MEDS: RT-ALBUTEROL SULF 2.5 MG/3 ML PRE-MIX VIAL INH SCH ×2 (07:06→19:38)
[2018-09-11] MEDS: MULTIVIT W/MINERALS TAB (THERAGRAN M) PO SCH (08:23)
[2018-09-11] MEDS: hydrOXYzine (VISTARIL) 25 MG capsule/tablet PO SCH ×2 (08:23→20:45)
[2018-09-11] MEDS: SERTRALINE 100 MG (ZOLOFT) TAB PO SCH (08:23)
[2018-09-11] MEDS: SPIRONOLACTONE 25 MG (ALDACTONE) TAB PO SCH (08:24)
[2018-09-11] MEDS: amLODIPine 10 MG (NORVASC) TAB PO SCH (08:24)
[2018-09-11] MEDS: SENNA W/DOCUSATE (SENOKOT S) TABLET PO SCH ×2 (08:25→20:45)
[2018-09-11] MEDS: NICOTINE 21 MG (NICODERM) PATCH TD SCH (08:25)
[2018-09-11] MEDS: LACTULOSE SYRUP 10GM/15ML (ENULOSE) 30ML UDC PO SCH ×2 (08:26→20:46)
--- NOTE | 2018-09-11 10:29 | PM&R Progress Note ---
Subjective HPI/CC On Admission Date Seen by Provider: September 11, 2018 Time Seen by Provider: 10:30 Chief Complaint: Right ankle fracture with severe debility HPI: This is a 58[facility] clinic [facility] who suffered a fall ans sustained a right ankle fracture one day following left CTR surgery by Dr. Fontenot at [facility], I actually admitted her over the weekend, she underwent an uncomplicated surgical repair by Dr. Leon and he will be continuing to monitory her progress and place a cast today. Due to the fact of her comorbidities and mental illness and ARIAS she has had a very slow recovery and will be in need of intensive therapy in order to regain enough function to return back home instead of a nursing facility. She did have significant drowsiness following surgery and it was a concern that her ARIAS would cause CO2 Narcosis. ABG was checked and that was stable. She did have a BM two days ago and overall her pain seems to be pretty much under control as long as she takes in on schedule. Her boyfriend is at the bedside and agrees with the plan. Her prior level of functioning was independent at home without the use of assistive devices. At this current time she does have weight bearing restrictions on the right ankle. Subjective/Events-last exam Patient still doing very well since increasing the Lortab from 5 to 10/325 Boyfriend at the bedside Participating in all therapies as required but taking rest day today Wants to go home soon so will assess for that possibility for tomorrrow Maintained on CPAP at night and pretty compliant Pain is controlled now BM+ regimen maintained but none for past 2 days but feels like she will have one today Lovenox for DXT PPx is causing no side effects of bleeding Monitoring BP and BS Conferred with RN Reviewed therapy notes Weaning off oxygen since she does not wear that at home Review of Systems Musculoskeletal: arm pain, leg pain Objective Exam Vital Signs Vital Signs Date Time Temp Pulse Resp B/P (MAP) Pulse Ox O2 Delivery O2 Flow Rate FiO2 09/11/18 08:23 Nasal Cannula 1.00 09/11/18 07:08 98 09/11/18 05:31 97.2 65 18 131/81 (98) Capillary Refill : Less Than 3 SecondsLess Than 3 Seconds General Appearance: No Apparent Distress, WD/WN, Chronically ill, Obese HEENT: PERRL/EOMI, Normal ENT Inspection, Pharynx Normal, Moist Mucous Membranes Neck: Full Range of Motion, Normal Inspection, Non Tender, Supple Respiratory: Chest Non Tender, Lungs Clear, Normal Breath Sounds, No Accessory Muscle Use, No Respiratory Distress Cardiovascular: Regular Rate, Rhythm, No Edema, No Gallop, No JVD, No Murmur Gastrointestinal: Normal Bowel Sounds, No Organomegaly, No Pulsatile Mass, Non Tender, Soft Back: Normal Inspection, No CVA Tenderness, No Vertebral Tenderness Extremity: Normal Capillary Refill, Normal Inspection, Normal Range of Motion (except right ankle/leg due to cast), Non Tender, No Calf Tenderness, No Pedal Edema Neurologic/Psychiatric: Alert, Oriented x3, No Motor/Sensory Deficits (except right leg from cast in place but moves toes on command), Normal Mood/Affect Skin: Normal Color, Warm/Dry Lymphatic: No Adenopathy Results/Procedures Lab Patient resulted labs reviewed. FIM Transfers Therapy Code Descriptions/Definitions Functional [place] Measure: 0=Not Assessed/NA 4=Minimal Assistance 1=Total Assistance 5=Supervision or Setup 2=Maximal Assistance 6=Modified [place] 3=Moderate Assistance 7=Complete [place] Therapy Quality Codes: 6 Independent with activity with or without an assistive device 5 Patient requires set up or clean up by helper. Patient completes activity by themselves 4 Supervision or touching assist (CGA). [place] provide cues , steadying assist 3 The helper provides less than half the effort to complete the activity 2 The helper provides more than half the effort to complete the activity 1 Dependent. The helper does all the effort to complete an activity 7 Patient refused to complete or attempt activity 9 The patient did not perform the activity before the current illness or injury 88 Not attempted due to Medical conditions or safety concerns Transfers (B, C, W/C) (FIM): 4 Scootin (use of bedrail) Rollin (use of bedrail) Roll Left to Right (QC): 4 Supine to/from Sit: 5 (supine to sit HOB slightly elevated, use of bedrail. sit to supine with bed level and no use of bedrail, pt requiring no assit) Sit to/from Stand: 5 (height of bed slightly elevated sit ot stand, verb inst to hold RLE up and out for NWB RLE. good technique stand to sit) Sit to Lying (QC): 5 Sit to Stand (QC): 4 Chair/Rem-fu-[place] Xfer(QC): 3 Bed to/from Chair: 4 (CGA provided bed to W/C, constant verb inst for NWB RLE. SBA provided W/C to bed with decreased inst req for WB precautions) Car Transfer (QC): 3 Gait Training Does the Patient Walk?: No and Walking Goal NOT indicated Gait (FIM): 1 Distance (FIM): 1=up to 49 ft Distance: 8' x3 Gait Level of Assist: 4 Gait Persons Needed: 1 Gait Assistive Device: Walker Platform Wheelchair Training Does the Pt Use a Wheelchair?: Yes Wheelchair (FIM): 5 Wheelchair Distance: 3=150 ft Distance: 240' with several brief rest breaks 2^ SOA and fatigue Wheelchair Level of Assist: 5 Wheel 50 ft with 2 turns (QC): 4 Wheel 150 ft (QC): 4 Type of Wheelchair: Manual Stair Training Stairs (FIM): 88 Mental Status/Objective Comprehension: 7 Expression: 7 Social Interaction: 7 Problem Solvin Memory: 7 ADL-Treatment Feedin (Pt reports feeding self after set up) Eating (QC): 5 Groomin Oral Hygiene (QC): 5 Bathin Shower/Bathe Self (QC): 4 Upper Extremity Dressin Upper Body Dressing (QC): 5 Lower Extremity Dressin Lower Body Dressing (QC): 4 On/Off Footwear (QC): 5 Toiletin Toileting Hygiene (QC): 2 Toilet/Commode Transfer: 4 (CGA) Toilet Transfer (QC): 4 Shower: 4 (CGA, shower bench, grab bar) Assessment/Plan Assessment and Plan Assess & Plan/Chief Complaint Assessment: Debility Right ankle fracture s/p repair POD # [address] Fontenot 2 weeks ago Schizophrenia ARIAS on CPAP HTN Obesity DVT PPx Plan: IRF protocols Pain control Lovenox for DVT PPx CPAP BM regimen Increase ability to ambulate with case right ankle Fall risk Evaluate plan of care Increased dose of Lortab pain med Wean off O2 DC soon (1) RIGHT ANKLE FRACTURE (2) Debility (3) Schizophrenia (4) Hypertension (5) Oxygen dependent (6) Carpal tunnel syndrome, left (7) ARIAS on CPAP (8) Fall (9) Fibula fracture (10) Medial malleolar fracture (11) Diabetes mellitus (12) Hypothyroidism SUSAN GARZA DO September 11, 2018 10:28
[2018-09-11] MEDS: ENOXAPARIN 40 MG/0.4 ML (LOVENOX) SYR SC SCH ×2 (10:45→21:22)
[2018-09-11 16:32] VITALS: BP 110/72
[2018-09-11] MEDS: traZODone 150 MG (DESYREL) TABLET PO SCH (20:44)
[2018-09-11] MEDS: MYRBETRIQ 50 MG TABLET PO SCH (20:44)
[2018-09-11] MEDS: ATORVASTATIN 40 MG (LIPITOR) TABLET PO SCH (20:45)
[2018-09-12] MEDS: HYDROcodone/APAP 10 MG/325 MG (LORTAB) TAB PO PRN ×5 (04:30→22:41)
[2018-09-12] MEDS: LEVOTHYROXINE 150 MCG (LEVOTHROID) TAB PO SCH (04:30)
[2018-09-12] MEDS: inSUlin ASPART (NovoLOG) 1 UNIT/0.01 ML (CHARGE PER UNIT) SC SCH ×4 (05:02→21:00)
[2018-09-12 05:10] VITALS: BP 125/78
[2018-09-12 05:14] LABS: BASOPHILS # (AUTO) 0.1 10^3/uL (0.0-0.1); BASOPHILS % (AUTO) 1 % (0-10); EOSINOPHILS # (AUTO) 0.2 10^3/uL (0.0-0.3); EOSINOPHILS % (AUTO) 3 % (0-10); HEMATOCRIT 41 % (35-52); HEMOGLOBIN 13.2 G/DL (11.5-16.0); LYMPHOCYTES # (AUTO) 2.1 X 10^3 (1.0-4.0); LYMPHOCYTES % (AUTO) 25 % (12-44); MEAN CORPUSCULAR HEMOGLOBIN 29 PG (25-34); MEAN CORPUSCULAR HGB CONC 32 G/DL (32-36); MEAN CORPUSCULAR VOLUME 89 FL (80-99); MEAN PLATELET VOLUME 10.1 FL (7.4-10.4); MONOCYTES # (AUTO) 0.7 X 10^3 (0.0-1.0); MONOCYTES % (AUTO) 8 % (0-12); NEUTROPHILS # (AUTO) 5.3 X 10^3 (1.8-7.8); NEUTROPHILS % (AUTO) 63 % (42-75); PLATELET COUNT 306 10^3/uL (130-400); RED CELL DISTRIBUTION WIDTH 12.2 % (10.0-14.5); WHITE BLOOD COUNT 8.4 10^3/uL (4.3-11.0)
[2018-09-12 05:39] LABS: ALANINE AMINOTRANSFERASE 51 U/L (0-55); ALKALINE PHOSPHATASE 68 U/L (40-136); BILIRUBIN,TOTAL 0.4 MG/DL (0.1-1.0); BUN/CREATININE RATIO 25; CALCIUM 9.7 MG/DL (8.5-10.1); CARBON DIOXIDE 24 MMOL/L (21-32); CHLORIDE 104 MMOL/L (98-107); CREATININE SERUM 0.76 MG/DL (0.60-1.30); GFR ESTIMATED > 60; GLUCOSE 109 MG/DL (70-105); POTASSIUM 4.1 MMOL/L (3.6-5.0); SODIUM 141 MMOL/L (135-145)
[2018-09-12] MEDS: metFORMIN 500 MG (GLUCOPHAGE) TAB PO SCH ×2 (06:05→18:07)
[2018-09-12] MEDS: OMEGA 3 (FISH OIL) 1000 MG CAP PO SCH ×3 (06:05→18:07)
[2018-09-12] MEDS: RT-ADVAIR HFA 115/21 MCG PER PUFF IH SCH ×2 (07:51→20:00)
[2018-09-12] MEDS: RT-ALBUTEROL SULF 2.5 MG/3 ML PRE-MIX VIAL INH SCH ×2 (07:51→20:00)
[2018-09-12 08:10] VITALS: BP 114/76
[2018-09-12] MEDS: SERTRALINE 100 MG (ZOLOFT) TAB PO SCH (08:24)
[2018-09-12] MEDS: SENNA W/DOCUSATE (SENOKOT S) TABLET PO SCH ×2 (08:24→21:09)
[2018-09-12] MEDS: MULTIVIT W/MINERALS TAB (THERAGRAN M) PO SCH (08:24)
[2018-09-12] MEDS: amLODIPine 10 MG (NORVASC) TAB PO SCH (08:24)
[2018-09-12] MEDS: SPIRONOLACTONE 25 MG (ALDACTONE) TAB PO SCH (08:24)
[2018-09-12] MEDS: LACTULOSE SYRUP 10GM/15ML (ENULOSE) 30ML UDC PO SCH ×2 (08:25→21:10)
[2018-09-12] MEDS: NICOTINE 21 MG (NICODERM) PATCH TD SCH (08:25)
[2018-09-12] MEDS: hydrOXYzine (VISTARIL) 25 MG capsule/tablet PO SCH ×2 (08:25→21:10)
--- NOTE | 2018-09-12 08:38 | PM&R Progress Note ---
Subjective HPI/CC On Admission Date Seen by Provider: September 12, 2018 Time Seen by Provider: 08:45 Chief Complaint: Right ankle fracture with severe debility HPI: This is a 58yoWF clinic Pt of [facility] who suffered a fall ans sustained a right ankle fracture one day following left CTR surgery by Dr. Fontenot at [facility], I actually admitted her over the weekend, she underwent an uncomplicated surgical repair by Dr. Leon and he will be continuing to monitory her progress and place a cast today. Due to the fact of her comorbidities and mental illness and ARIAS she has had a very slow recovery and will be in need of intensive therapy in order to regain enough function to return back home instead of a nursing facility. She did have significant drowsiness following surgery and it was a concern that her ARIAS would cause CO2 Narcosis. ABG was checked and that was stable. She did have a BM two days ago and overall her pain seems to be pretty much under control as long as she takes in on schedule. Her boyfriend is at the bedside and agrees with the plan. Her prior level of functioning was independent at home without the use of assistive devices. At this current time she does have weight bearing restrictions on the right ankle. Subjective/Events-last exam Patient still doing very well since increasing the Lortab from 5 to 10/325 so will Rx that at DC DC planned for tomorrow Participating in all therapies as required and therapy has no concerns about her going home tomorrow Maintained on CPAP at night and now meets criteria for O2 to be hooked into CPAP so I did order that for her Pain is controlled now BM+ regimen maintained Lovenox for DXT PPx is causing no side effects of bleeding so will place on low dose Eliquis at DC Monitoring BP and BS Conferred with RN Reviewed therapy notes No need of O2 during the day only at night Platform to be hooked onto her walker was ordered for her Review of Systems Musculoskeletal: arm pain, leg pain Objective Exam Vital Signs Vital Signs Date Time Temp Pulse Resp B/P (MAP) Pulse Ox O2 Delivery O2 Flow Rate FiO2 09/12/18 18:00 98.0 74 18 142/79 (100) 94 Nasal Cannula 09/12/18 15:31 1.00 Capillary Refill : Less Than 3 SecondsLess Than 3 Seconds General Appearance: No Apparent Distress, WD/WN, Chronically ill, Obese HEENT: PERRL/EOMI, Normal ENT Inspection, Pharynx Normal, Moist Mucous Membranes Neck: Full Range of Motion, Normal Inspection, Non Tender, Supple Respiratory: Chest Non Tender, Lungs Clear, Normal Breath Sounds, No Accessory Muscle Use, No Respiratory Distress Cardiovascular: Regular Rate, Rhythm, No Edema, No Gallop, No JVD, No Murmur Gastrointestinal: Normal Bowel Sounds, No Organomegaly, No Pulsatile Mass, Non Tender, Soft Back: Normal Inspection, No CVA Tenderness, No Vertebral Tenderness Extremity: Normal Capillary Refill, Normal Inspection, Normal Range of Motion (except right ankle/leg due to cast), Non Tender, No Calf Tenderness, No Pedal Edema Neurologic/Psychiatric: Alert, Oriented x3, No Motor/Sensory Deficits (except right leg from cast in place but moves toes on command), Normal Mood/Affect Skin: Normal Color, Warm/Dry Lymphatic: No Adenopathy Results/Procedures Lab Laboratory Tests 09/12/18 04:42 Patient resulted labs reviewed. FIM Transfers Therapy Code Descriptions/Definitions Functional [place] Measure: 0=Not Assessed/NA 4=Minimal Assistance 1=Total Assistance 5=Supervision or Setup 2=Maximal Assistance 6=Modified [place] 3=Moderate Assistance 7=Complete [place] Therapy Quality Codes: 6 Independent with activity with or without an assistive device 5 Patient requires set up or clean up by helper. Patient completes activity by themselves 4 Supervision or touching assist (CGA). [place] provide cues , steadying ass ist 3 The helper provides less than half the effort to complete the activity 2 The helper provides more than half the effort to complete the activity 1 Dependent. The helper does all the effort to complete an activity 7 Patient refused to complete or attempt activity 9 The patient did not perform the activity before the current illness or injury 88 Not attempted due to Medical conditions or safety concerns Transfers (B, C, W/C) (FIM): 4 Scootin (use of bedrail) Rollin (use of bedrail) Roll Left to Right (QC): 4 Supine to/from Sit: 5 (supine to sit HOB slightly elevated, use of bedrail. sit to supine with bed level and no use of bedrail, pt requiring no assit) Sit to/from Stand: 5 (height of bed slightly elevated sit ot stand, verb inst to hold RLE up and out for NWB RLE. good technique stand to sit) Sit to Lying (QC): 5 Sit to Stand (QC): 4 Chair/Oqn-vv-[place] Xfer(QC): 3 Bed to/from Chair: 4 (CGA provided bed to W/C, constant verb inst for NWB RLE. SBA provided W/C to bed with decreased inst req for WB precautions) Car Transfer (QC): 3 Gait Training Does the Patient Walk?: No and Walking Goal NOT indicated Gait (FIM): 1 Distance (FIM): 1=up to 49 ft Distance: 8' x3 Gait Level of Assist: 4 Gait Persons Needed: 1 Gait Assistive Device: Walker Platform Wheelchair Training Does the Pt Use a Wheelchair?: Yes Wheelchair (FIM): 5 Wheelchair Distance: 3=150 ft Distance: 240' with several brief rest breaks 2^ SOA and fatigue Wheelchair Level of Assist: 5 Wheel 50 ft with 2 turns (QC): 4 Wheel 150 ft (QC): 4 Type of Wheelchair: Manual Stair Training Stairs (FIM): 88 Mental Status/Objective Comprehension: 7 Expression: 7 Social Interaction: 7 Problem Solvin Memory: 7 ADL-Treatment Feedin (Pt reports feeding self after set up) Eating (QC): 5 Groomin Oral Hygiene (QC): 5 Bathin Shower/Bathe Self (QC): 4 Upper Extremity Dressin Upper Body Dressing (QC): 5 Lower Extremity Dressin Lower Body Dressing (QC): 4 On/Off Footwear (QC): 5 Toiletin Toileting Hygiene (QC): 2 Toilet/Commode Transfer: 4 (CGA) Toilet Transfer (QC): 4 Shower: 4 (CGA, shower bench, grab bar) Assessment/Plan Assessment and Plan Assess & Plan/Chief Complaint Assessment: Debility Right ankle fracture s/p repair POD # [address] Fontenot 2 weeks ago Schizophrenia ARIAS on CPAP HTN Obesity DVT PPx Plan: IRF protocols Pain control Lovenox for DVT PPx CPAP BM regimen Increase ability to ambulate with case right ankle Fall risk DC home tomorrow Increased dose of Lortab pain med O2 at night with CPAP DC Wednesday (1) Closed right ankle fracture (2) Debility (3) Schizophrenia (4) Hypertension (5) Oxygen dependent (6) Carpal tunnel syndrome, left (7) ARIAS on CPAP (8) Fall (9) Fibula fracture (10) Medial malleolar fracture (11) Diabetes mellitus (12) Hypothyroidism SUSAN GARZA DO September 12, 2018 08:38
--- NOTE | 2018-09-12 09:36 | Occupational Ther Daily Note ---
OT Current Status-Daily Note Subjective Pt alert, lying in bed. Pt agrees to therapy. C/o pain, 5/10, nrsg in room and gave pain meds. Mental Status/Objective Patient Orientation: Person, Place, Time, Situation Therapy Code Descriptions/Definitions Functional [place] Measure: 0=Not Assessed/NA 4=Minimal Assistance 1=Total Assistance 5=Supervision or Setup 2=Maximal Assistance 6=Modified [place] 3=Moderate Assistance 7=Complete [place] ADL-Treatment Therapy Code Descriptions/Definitions Functional [place] Measure: 0=Not Assessed/NA 4=Minimal Assistance 1=Total Assistance 5=Supervision or Setup 2=Maximal Assistance 6=Modified [place] 3=Moderate Assistance 7=Complete [place] Therapy Quality Codes: 6 Independent with activity with or without an assistive device 5 Patient requires set up or clean up by helper. Patient completes activity by themselves 4 Supervision or touching assist (CGA). [place] provide cues , steadying assist 3 The helper provides less than half the effort to complete the activity 2 The helper provides more than half the effort to complete the activity 1 Dependent. The helper does all the effort to complete an activity 7 Patient refused to complete or attempt activity 9 The patient did not perform the activity before the current illness or injury 88 Not attempted due to Medical conditions or safety concerns Eating (FIM): 7 (Pt able to complete independently.) Eating (QC): 6 Grooming (FIM): 6 (Sitting in w/c completes independently.) Oral Hygiene (QC): 6 Bathing (FIM): 5 (Using grabbars, hand held shower and shower bench pt able to complete bathing/drying. Assist only to cover leg cast and arm splint.) Shower/Bathe Self (QC): 5 Upper Body (FIM): 5 (Assist to retrieve clothing then pt able to complete dressing.) Upper Body Dressing (QC): 5 Lower Body Dressing (FIM): 5 (Assist to retrieve clothing then pt able to complete dressing.) Lower Body Dressing (QC): 5 On/Off Footwear (QC): 5 Toileting (FIM): 6 (Using w/c and grabbars, pt able to complete by self.) Toileting Hygiene (QC): 6 Transfers (B, C, W/C) (FIM): 6 (Using FWW with platform.) Toilet/Commode Transfer (FIM): 6 (Using grabbars and w/c.) Toilet Transfer (QC): 6 Shower Transfer(FIM): 6 (Using w/c, grabbar and shower bench pt able to complete by self.) Pt has tub at home. Pt verbalized tub transfer bench transfer and stated that she did not want to attempt. After therapy, pt lying in bed with call light/phone in reach. All needs met in room. OT Short Term Goals Short Term Goals Time Frame: September 13, 2018 Bathing(FIM): 4 Lower Body Dressing(FIM): 4 Toileting(FIM): 4 Toilet/Commode Transfer(FIM): 4 (CGA) Additional Short Term Goals: 1-Demonstrate ADL Tasks, 2-Verbalize Understanding, 3-ImproveStrength/Nubia 1=Demonstrate adherence to instructed precautions during ADL tasks. 2=Patient will verbalize/demonstrate understanding of assistive devices/modifications for ADL. 3=Patient will improve strength/tolerance for activity to enable patient to perform ADL's. OT Jail Goals Demand Planner Goals Time Frame: Sep 27, 2018 Eating (FIM): 7 (met-09/12/18) Eating (QC): 6 (met-09/12/18) Groomin (met-09/12/18) Oral Hygiene (QC): 6 (met-09/12/18) Bathing(FIM): 5 (met-09/12/18) Shower/Bathe Self (QC): 5 (met-09/12/18) Upper Body Dressing(FIM): 6 (met-09/12/18) Upper Body Dressing (QC): 6 (met-09/12/18) Lower Body Dressing(FIM): 5 (met-09/12/18) Lower Body Dressing (QC): 5 (met-09/12/18) On/Off Footwear (QC): 5 (met-09/12/18) Toileting(FIM): 5 (met-09/12/18) Toileting Hygiene (QC): 5 (met-09/12/18) Toilet/Commode Transfer(FIM): 5 (met-09/12/18) Toilet/Commode Transfer (QC): 5 (met-09/12/18) Shower Transfer(FIM): 5 (met-09/12/18) Additional Goals: 1-Demonstrate ADL Tasks, 2-Verbalize Understanding, 3- ImproveStrength/Nubia 1=Demonstrate adherence to instructed precautions during ADL tasks. 2=Patient will verbalize/demonstrate understanding of assistive devices/modifications for ADL. 3=Patient will improve strength/tolerance for activity to enable patient to perform ADL's. OT Education/Plan Problem List/Assessment Assessment: Impaired Self-Care Skills, Restricted Funct UE ROM Discharge Recommendations Plan/Recommendations: Continue POC Treatment Plan/Plan of Care Patient would benefit from OT for education, treatment and training to promote independence in ADL's, mobility, safety and/or upper extremity function for ADL's. Plan of Care: ADL Retraining, Functional Mobility, Group Exercise/Act as Ind, UE Funct Exercise/Act Treatment Duration: Sep 27, 2018 Frequency: At least 5 of 7 days/Wk (IRF) Estimated Hrs Per Day: 1.5 hours per day Agreement: Yes Rehab Potential: Fair Time/GCodes Start Time: 08:00 Stop Time: 09:00 Total Time Billed (hr/min): 60 Billed Treatment Time 1 visit-ADL 4 (60 min) VIET NEWELL September 12, 2018 09:36
[2018-09-12] MEDS: ENOXAPARIN 40 MG/0.4 ML (LOVENOX) SYR SC SCH ×2 (11:14→22:16)
--- NOTE | 2018-09-12 11:54 | Physical Therapy Daily Note ---
PT Daily Note-Current Subjective Pt. agrees to Rx. States she feels very ready for home and feels she will do well. States her is very supportive and helpful. Pt. reports she feels SOB in supine during LE exercise but not while up in w/c or during TRFs Pain Location: No Pain Reported Mental Status Patient Orientation: Normal For Age Attachments: Other-See Comments (casted right ankle foot) Transfers Therapy Code Descriptions/Definitions Functional [place] Measure: 0=Not Assessed/NA 4=Minimal Assistance 1=Total Assistance 5=Supervision or Setup 2=Maximal Assistance 6=Modified [place] 3=Moderate Assistance 7=Complete [place] Therapy Quality Codes: 6 Independent with activity with or without an assistive device 5 Patient requires set up or clean up by helper. Patient completes activity by themselves 4 Supervision or touching assist (CGA). [place] provide cues , steadying assist 3 The helper provides less than half the effort to complete the activity 2 The helper provides more than half the effort to complete the activity 1 Dependent. The helper does all the effort to complete an activity 7 Patient refused to complete or attempt activity 9 The patient did not perform the activity before the current illness or injury 88 Not attempted due to Medical conditions or safety concerns Transfers (B, C, W/C) (FIM): 5 Scootin Rollin Roll Left to Right (QC): 6 Supine to/from Sit: 6 Sit to/from Stand: 5 Sit to Lying (QC): 6 Sit to Stand (QC): 6 Chair/Igj-mu-Nokia Xfer(QC): 5 Bed to/from Chair: 5 Car Transfer (QC): 5 needs instruction for car transfer as to where to hold and sequence of task Weight Bearing Right Lower Extremity: Right Non Weight Bearing Left Lower Extremity: Left Full Weight Bearing (L) hand NWB due to recent carpal tunnel release also NWB on LUE Gait Training Does the Patient Walk?: Yes Gait (FIM): 1 Distance (FIM): 1=up to 49 ft (6-7 ft for TRFs) Gait Level of Assist: 4 Gait Persons Needed: 1 Gait Assistive Device: Walker Platform pt. must be vigilant to keep right toes off floor, any backing "hopping" is more difficult. gait is not a safe practical mode of mobility Wheelchair Training Does the Pt Use a Wheelchair?: Yes Wheelchair (FIM): 5 Wheelchair Distance: 3=150 ft (x2) Wheelchair Level of Assist: 5 Wheel 50 ft with 2 turns (QC): 5 Wheel 150 ft (QC): 5 Type of Wheelchair: Manual pt. manages bilat brakes as well as turns indep, pt. may not always utilize leg rest on RLE and does need assist to take it off on Exercises Supine Ex: Ankle pumps, Quad Set, Rolling, Glut sets, Heel Slides, Short Arc Quads, Scooting, Straight leg raise, Hip abd/add Supine Reps: 15 Seated Therapy Exercises: Sit to stand, Long arc quads, Hip flexion Seated Reps: 12 Treatments O2 sats monitored as requested by nursing /RT during activity. on room air for w/c mobility and TRFs sit to stand sats steady at 95%, however in supine for LE eercise pts sats on room air decrease to 82%, when pt. sits up EOB they quickly escalate to 92%, pt. uses CPAP at home during sleep. states that here at the hospital she has slept with HOB up, this CLAMP JIG ASSEMBLER suggests nursing check O2 sats at night Assessment Current Status: Good Progress improved w/c skills , TRFs need SBA at times PT Short Term Goals Short Term Goals Time Frame: September 13, 2018 Gait (FIM): 1 Gait Distance Comment: 10' Gait Level of Assist: 4 Gait Assistive Device: Walker Platform Wheelchair Distance: 240' with several brief rest breaks 2^ SOA and fatigue PT Diamond Die Polisher Goals Diamond Die Polisher Goals PT Diamond Die Polisher Goals Time Frame: Sep 27, 2018 Transfers (B,C,W/C) (FIM): 5 Sit to Lying (QC): 6 Lying-Sitting on Side/Bed(QC): 6 Sit to Stand (QC): 4 Rollin (use of bedrail) Roll Left to Right (QC): 6 Chair/Ffw-wn-Xrsnr Xfer(QC): 4 Car Transfer (QC): 4 Gait (FIM): 1 Distance: 20' Walk 10 feet (QC): 4 Walk 10ft-Uneven Surface(QC): 4 Gait Level of Assist: 4 Gait Assistive Device: Walker Platform Wheelchair (FIM): 5 Distance: 150' Wheelchair Level of Assist: 5 Wheel 50 feet with 2 turns (QC: 4 Stairs (FIM): 1 # of Steps: 1 1 Step (curb) (QC): 3 PT Plan Treatment/Plan Treatment Plan: Continue Plan of Care Treatment Plan: Bed Mobility, Concurrent Therapy, Education, Functional Activity Nubia, Functional Strength, Group Therapy, Gait, Safety, Therapeutic Exercise, Transfers Treatment Duration: Sep 27, 2018 Frequency: At least 5 of 7 days/Wk (IRF) Estimated Hrs Per Day: 1.5 hours per day Patient and/or Family Agrees t: Yes Safety Risks/Education Patient Education: Gait Training (for SPTs), Transfer Techniques, Correct Positioning, W/C Management, Disease Process, Safety Issues Teaching Recipient: Patient Teaching Methods: Demonstration, Discussion Response to Teaching: Verbalize Understanding, Return Demonstration, Reinforcement Needed Time/GCodes Time In: 1100 Time Out: 1200 Total Billed Treatment Time: 60 Total Billed Treatment 1,w/c15m,FA35m,GT10m G Codes Necessary: ISABELLE Abrams CLAMP JIG ASSEMBLER September 12, 2018 11:54
--- NOTE | 2018-09-12 13:53 | NUR ---
SPACE CONTROLLER met with patient in regards to discharge planning. Per discussion had with Dr. Gustafson, she is comfortable with patient returning home tomorrow. Patient is agreeable and anxious to return home. Home health PT and OT recommended for continued therapies once home. SPACE CONTROLLER reviewed home health provider list, patient is agreeable to home health requests [facility]. Patient and intends to utilize wheelchair for home mobility; however, will need to utilize walker with left platform attachment for transfers and navigating through small spaces. SPACE CONTROLLER has requested Dr. Gustafson place order for her left platform attachment and has requested patient's significant other breathing walker to hospital for attachment. SPACE CONTROLLER reviewed IMM and Patient Choice Letter, patient expresses no concerns regarding discharge home tomorrow. Patient states her significant other can be present for discharge at 1 p.m. SPACE CONTROLLER has notified Kady at [facility] of referral. Addendum: 09/12/18 at 1641 by SAMANTHA KHAN SS SPACE CONTROLLER received notification from Kady at [facility] of acceptance for referral. SPACE CONTROLLER sent platform attachment order to [facility]; however, they're currently out of stock this item. SPACE CONTROLLER then contacted [employer] regarding order, they have this item on ordering contact delivered to patients home either tomorrow or Wednesday. RT completed O2 home study, patient qualifies for 2 L O2 bled into CPAP while sleeping. SPACE CONTROLLER sent order to [facility] for delivery to home.
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
--- NOTE | 2018-09-12 15:31 | NUR ---
patient worked with PT and her O2 Sat did not drop below 90% on RA; patient was placed in bed laying down on RA and rechecked on RA after 1 hour and her O2 Sat dropped to 87% and was staying low so RT placed 2 L on patient and her O2 sat went up to 90% and remained up. Due to patient desatting while laying down RT suggested an overnight pulse ox be done.
[2018-09-12 18:00] VITALS: BP 142/79
--- NOTE | 2018-09-12 19:18 | NUR ---
bedside report received from KHADIJAH OCHOA, assume care of pt
--- NOTE | 2018-09-12 21:00 | NUR ---
assessments & interventions completed, see assessments & interventions, fsbs 126, rt toes warm pt able to move toes, lt finger warm pt able to move finger, rt leg & lt arm elevated on pillows
[2018-09-12 21:05] VITALS: BP 99/66
[2018-09-12] MEDS: traZODone 150 MG (DESYREL) TABLET PO SCH (21:09)
[2018-09-12] MEDS: MYRBETRIQ 50 MG TABLET PO SCH (21:09)
[2018-09-12] MEDS: ATORVASTATIN 40 MG (LIPITOR) TABLET PO SCH (21:09)
--- NOTE | 2018-09-12 21:10 | NUR ---
b/p 99/66 vistaril 50mg po held
--- NOTE | 2018-09-12 22:41 | NUR ---
c/o rt leg pain level 4/10 on numeric scale, Lortab 10 1 tab po given
--- NOTE | 2018-09-12 23:15 | NUR ---
resting quietly in bed, pain level 0/10 on flacc scale
--- NOTE | 2018-09-12 23:45 | NUR ---
PATIENT WAS PLACED ON OVERNIGHT CAR REPAIR SUPERVISOR @ 2222. RT CHECKED PATIENT'S O2 SATURATION AND IT WAS 85% AT 2345. RT PLACED PATIENT ON 2L NC AT THIS CURRENT TIME.
[2018-09-13] MEDS: HYDROcodone/APAP 10 MG/325 MG (LORTAB) TAB PO PRN ×2 (03:03→09:09)
--- NOTE | 2018-09-13 03:03 | NUR ---
c/o c/o pain rt leg pain level 4/10 on numeric scale, Lortab 10 1 tab given
--- NOTE | 2018-09-13 03:35 | NUR ---
resting quietly in bed, pain level 0/10 on flacc scale
[2018-09-13 05:10] VITALS: BP 124/76
[2018-09-13] MEDS: inSUlin ASPART (NovoLOG) 1 UNIT/0.01 ML (CHARGE PER UNIT) SC SCH (06:00)
[2018-09-13] MEDS: RT-ALBUTEROL SULF 2.5 MG/3 ML PRE-MIX VIAL INH SCH (06:23)
[2018-09-13] MEDS: RT-ADVAIR HFA 115/21 MCG PER PUFF IH SCH (06:29)
[2018-09-13] MEDS: OMEGA 3 (FISH OIL) 1000 MG CAP PO SCH (06:59)
[2018-09-13] MEDS: LEVOTHYROXINE 150 MCG (LEVOTHROID) TAB PO SCH (06:59)
[2018-09-13] MEDS: metFORMIN 500 MG (GLUCOPHAGE) TAB PO SCH (06:59)
--- NOTE | 2018-09-13 07:20 | NUR ---
bedside report given to KHADIJAH OCHOA
[2018-09-13] MEDS ORDERED: NICO-588 TD (08:26)
[2018-09-13] MEDS ORDERED: SENN-20 PO (08:26)
[2018-09-13] MEDS ORDERED: APIX2.5T PO (08:26)
[2018-09-13] MEDS ORDERED: HYDR-3820 PO (08:26)
[2018-09-13] MEDS ORDERED: FLUT12AE4 IH (08:26)
--- NOTE | 2018-09-13 08:28 | Discharge Summary ---
Diagnosis/Chief Complaint Date of Admission September 06, 2018 at 10:47 Date of Discharge Discharge Date: September 13, 2018 Discharge Diagnosis Assessment: Debility Right ankle fracture s/p repair POD # [address] Fontenot 2 weeks ago Schizophrenia ARIAS on CPAP HTN Obesity DVT PPx Plan: IRF protocols Pain control Lovenox for DVT PPx CPAP BM regimen Increase ability to ambulate with case right ankle Fall risk DC home tomorrow Increased dose of Lortab pain med O2 at night with CPAP DC today Discharge Summary Discharge Physical Examination Allergies: Coded Allergies: Penicillins (Unverified Allergy, Unknown, RASH, 12/01/13) Sulfa (Sulfonamide Antibiotics) (Verified Allergy, Unknown, RASH, 12/01/13) Vitals & I&Os Vital Signs Date Time Temp Pulse Resp B/P (MAP) Pulse Ox O2 Delivery O2 Flow Rate FiO2 09/13/18 09:08 81 108/71 (83) 09/13/18 09:00 Nasal Cannula 1.00 09/13/18 06:26 96 09/13/18 05:10 98.0 18 General Appearance: Alert, Oriented X3, Cooperative Respiratory: Clear to Auscultation, Normal Air Movement Cardiovascular: Regular Rate, Normal S1, Normal S2 Abdominal: Normal Bowel Sounds, Soft Extremities: No Clubbing, No Cyanosis, Other (right ankle cast, left wrist in brace) Neuro: Normal Speech, Strength at 5/5 X4 Ext Psych/Mental Status: Mental Status NL, Mood NL Hospital Course Was the Problem List Reviewed?: Yes Hospital course: patient had a very successful IRF course for 8 days after med- surg hospital stay for right ankle fracture s/p fall after taking pain meds for left CTS release surgery. Dr Leon was consulted and performed an uncomplicated repair and 3 days later applied a cast. Pain was controlled during the IRF course and BM regimen maintained with normal bowel routine attained. O2 maintained during the course and she was weaned during daytime but required it during sleep into her CPAP. Participation with all therapies went well and she was able to manage with right ankle case on and maintained on DVT PPx during stay and will be DC on Eliquis 2.5mg BIF for an additional 1 month or longer per discretion of PCP. Labs (last 24 hrs) Laboratory Tests 09/06/18 16:28: Glucometer 124H 09/07/18 04:50: Glucometer 127H, White Blood Count 9.3, Red Blood Count 4.26L, Hemoglobin 12.6, Hematocrit 39, Mean Corpuscular Volume 91, Mean Corpuscular Hemoglobin 30, Mean Corpuscular Hemoglobin Concent 33, Red Cell Distribution Width 12.6, Platelet Count 285, Mean Platelet Volume 9.7, Neutrophils (%) (Auto) 65, Lymphocytes (%) (Auto) 21, Monocytes (%) (Auto) 10, Eosinophils (%) (Auto) 3, Basophils (%) (Auto) 0, Neutrophils # (Auto) 6.1, Lymphocytes # (Auto) 1.9, Monocytes # (Auto) 1.0, Eosinophils # (Auto) 0.3, Basophils # (Auto) 0.0, Sodium Level 144, Potassium Level 4.2, Chloride Level 107, Carbon Dioxide Level 24, Anion Gap 13, Blood Urea Nitrogen 21H, Creatinine 0.70, Estimat Glomerular Filtration Rate > 60, BUN/Creatinine Ratio 30, Glucose Level 123H, Calcium Level 10.0, Corrected Calcium 10.2H, Total Bilirubin 0.4, Aspartate Amino Transf (AST/SGOT) 17, Alanine Aminotransferase (ALT/SGPT) 18, Alkaline Phosphatase 60, Total Protein 6.7, Albumin 3.7 09/07/18 12:17: Glucometer 136H 09/07/18 16:10: Glucometer 142H 09/07/18 20:46: Glucometer 127H 09/08/18 05:30: Glucometer 101 09/08/18 12:29: Glucometer 104 09/08/18 16:06: Glucometer 130H 09/08/18 20:15: Glucometer 113H 09/09/18 05:55: Glucometer 95 09/09/18 11:32: Glucometer 124H 09/09/18 16:43: Glucometer 126H 09/09/18 20:03: Glucometer 109 09/10/18 05:48: Glucometer 101 09/10/18 10:56: Glucometer 100 09/10/18 15:29: Glucometer 118H 09/10/18 20:33: Glucometer 138H 09/11/18 05:26: Glucometer 106 09/11/18 11:15: Glucometer 118H 09/11/18 16:27: Glucometer 98 09/11/18 20:52: Glucometer 162H 09/12/18 04:41: Glucometer 114H 09/12/18 04:42: White Blood Count 8.4, Red Blood Count 4.56, Hemoglobin 13.2, Hematocrit 41, Mean Corpuscular Volume 89, Mean Corpuscular Hemoglobin 29, Mean Corpuscular Hemoglobin Concent 32, Red Cell Distribution Width 12.2, Platelet Count 306, Mean Platelet Volume 10.1, Neutrophils (%) (Auto) 63, Lymphocytes (%) (Auto) 25, Monocytes (%) (Auto) 8, Eosinophils (%) (Auto) 3, Basophils (%) (Auto) 1, Neutrophils # (Auto) 5.3, Lymphocytes # (Auto) 2.1, Monocytes # (Auto) 0.7, Eosinophils # (Auto) 0.2, Basophils # (Auto) 0.1, Sodium Level 141, Potassium Level 4.1, Chloride Level 104, Carbon Dioxide Level 24, Anion Gap 13, Blood Urea Nitrogen 19H, Creatinine 0.76, Estimat Glomerular Filtration Rate > 60, BUN/Creatinine Ratio 25, Glucose Level 109H, Calcium Level 9.7, Corrected Calcium 9.7, Total Bilirubin 0.4, Aspartate Amino Transf (AST/SGOT) 32, Alanine Aminotransferase (ALT/SGPT) 51, Alkaline Phosphatase 68, Total Protein 7.0, [place] min 4.0 09/12/18 11:16: Glucometer 122H 09/12/18 16:41: Glucometer 125H 09/12/18 21:05: Glucometer 126H 09/13/18 06:28: Glucometer 116H Pending Labs Laboratory Tests 09/06/18 16:28: Glucometer 124 09/07/18 04:50: Glucometer 127, White Blood Count 9.3, Red Blood Count 4.26, Hemoglobin 12.6, Hematocrit 39, Mean Corpuscular Volume 91, Mean Corpuscular Hemoglobin 30, Mean Corpuscular Hemoglobin Concent 33, Red Cell Distribution Width 12.6, Platelet Count 285, Mean Platelet Volume 9.7, Neutrophils (%) (Auto) 65, Lymphocytes (%) (Auto) 21, Monocytes (%) (Auto) 10, Eosinophils (%) (Auto) 3, Basophils (%) (Auto) 0, Neutrophils # (Auto) 6.1, Lymphocytes # (Auto) 1.9, Monocytes # (Auto) 1.0, Eosinophils # (Auto) 0.3, Basophils # (Auto) 0.0, Sodium Level 144, Potassium Level 4.2, Chloride Level 107, Carbon Dioxide Level 24, Anion Gap 13, Blood Urea Nitrogen 21, Creatinine 0.70, Estimat Glomerular Filtration Rate > 60, BUN/Creatinine Ratio 30, Glucose Level 123, Calcium Level 10.0, Corrected Calcium 10.2, Total Bilirubin 0.4, Aspartate Amino Transf (AST/SGOT) 17, Alanine Aminotransferase (ALT/SGPT) 18, Alkaline Phosphatase 60, Total Protein 6.7, Albumin 3.7 09/07/18 12:17: Glucometer 136 09/07/18 16:10: Glucometer 142 09/07/18 20:46: Glucometer 127 09/08/18 05:30: Glucometer 101 09/08/18 12:29: Glucometer 104 09/08/18 16:06: Glucometer 130 09/08/18 20:15: Glucometer 113 09/09/18 05:55: Glucometer 95 09/09/18 11:32: Glucometer 124 09/09/18 16:43: Glucometer 126 09/09/18 20:03: Glucometer 109 09/10/18 05:48: Glucometer 101 09/10/18 10:56: Glucometer 100 09/10/18 15:29: Glucometer 118 09/10/18 20:33: Glucometer 138 09/11/18 05:26: Glucometer 106 09/11/18 11:15: Glucometer 118 09/11/18 16:27: Glucometer 98 09/11/18 20:52: Glucometer 162 09/12/18 04:41: Glucometer 114 09/12/18 04:42: White Blood Count 8.4, Red Blood Count 4.56, Hemoglobin 13.2, Hematocrit 41, Mean Corpuscular Volume 89, Mean Corpuscular Hemoglobin 29, Mean Corpuscular Hemoglobin Concent 32, Red Cell Distribution Width 12.2, Platelet Count 306, Mean Platelet Volume 10.1, Neutrophils (%) (Auto) 63, Lymphocytes (%) (Auto) 25, Monocytes (%) (Auto) 8, Eosinophils (%) (Auto) 3, Basophils (%) (Auto) 1, [place] trophils # (Auto) 5.3, Lymphocytes # (Auto) 2.1, Monocytes # (Auto) 0.7, Eosinophils # (Auto) 0.2, Basophils # (Auto) 0.1, Sodium Level 141, Potassium Level 4.1, Chloride Level 104, Carbon Dioxide Level 24, Anion Gap 13, Blood Urea Nitrogen 19, Creatinine 0.76, Estimat Glomerular Filtration Rate > 60, BUN/Creatinine Ratio 25, Glucose Level 109, Calcium Level 9.7, Corrected Calcium 9.7, Total Bilirubin 0.4, Aspartate Amino Transf (AST/SGOT) 32, Alanine Aminotransferase (ALT/SGPT) 51, Alkaline Phosphatase 68, Total Protein 7.0, Albumin 4.0 09/12/18 11:16: Glucometer 122 09/12/18 16:41: Glucometer 125 09/12/18 21:05: Glucometer 126 09/13/18 06:28: Glucometer 116 Discharge Home Medications: Active Scripts Active Eliquis (Apixaban) 2.5 Mg Tablet 2.5 Mg PO BID Senna-Time S Tablet (Sennosides/Docusate Sodium) 1 Each Tablet 1 Ea PO BID Advair Hfa 115-21 Mcg Inhaler (Fluticasone/Salmeterol) 12 Gm Hfa.aer.ad 2 Puff IH BID@08,20 Hydrocodon-Acetaminophn 10-325 (Hydrocodone/Acetaminophen) 1 Each Tablet 1 Ea PO Q4H PRN Nicotine Patch (Nicotine) 1 Each Patch.td24 21 Mg TD DAILY@0900 Reported Sumatriptan Succinate 50 Mg Tablet 50 Mg PO UD PRN Estradiol Tablet (Estradiol) 2 Mg Tablet 2 Mg PO DAILY Atorvastatin Calcium 40 Mg Tablet 40 Mg PO HS Loxapine (Loxapine Succinate) 10 Mg Capsule 10 Mg PO BID PRN Pantoprazole Sodium 40 Mg Tablet.dr 40 Mg PO DAILY Hydroxyzine HCl 50 Mg Tablet 50 Mg PO TID PRN Montelukast Sodium 10 Mg Tablet 10 Mg PO HS Amlodipine Besylate 10 Mg Tablet 10 Mg PO DAILY Spironolactone 50 Mg Tablet 50 Mg PO DAILY Levothyroxine Sodium 150 Mcg Tablet 150 Mcg PO DAILY Breo Ellipta 100-25 Mcg INH (Fluticasone/Vilanterol) 1 Each Blst.w.dev 1 Puff INH DAILY Gabapentin 600 Mg Tablet 1,200 Mg PO TID TAKES 2 (600MG) TABLETS Ventolin Hfa (Albuterol Sulfate) 18 Gm Hfa.aer.ad 2 Puff INH Q4H PRN Fluticasone Propionate 16 Gm [place].susp 2 Sprays NS DAILY Fish Oil 1,000 mg Capsule ([place] 3 Polyunsat Fatty Acids) 1,000 Mg Cap 1,000 Mg PO TID Invega Sustenna (Paliperidone Palmitate) 234 Mg/1.5 Ml Syringe 234 Mg INJ EVERY 3 WEEKS Triamcinolone Acetonide 0.5% Cream (Triamcinolone Acetonide) 15 Gm Cream..g. TOP QID Trulicity (Dulaglutide) 0.75 Mg/0.5 Ml Pen.injctr 0.75 Mg SC TU Trazodone HCl 100 Mg Tablet 100 Mg PO HS Sertraline HCl 100 Mg Tablet 200 Mg PO DAILY TAKES 2 (100MG) TABLETS Imipramine HCl 50 Mg Tablet 50 Mg PO HS Desmopressin Acetate 0.2 Mg Tablet 0.6 Mg PO HS TAKES 3 (0.2MG) TABLETS Restasis (Cyclosporine) 1 Each Droperette 1 Drop OU BID Myrbetriq (Mirabegron) 50 Mg Tab.er.24h 50 Mg PO HS Multi-Vitamin Daily (Multivitamin) 1 Each Tablet 1 Tab PO DAILY Metformin HCl 1,000 Mg Tablet 1,000 Mg PO BID Instructions to patient/family Please see electronic discharge instructions given to patient. Diagnosis/Problems Diagnosis/Problems (1) Closed right ankle fracture Status: Acute Qualifiers: Qualified Codes: S82.891A - Other fracture of right lower leg, initial en counter for closed fracture (2) Debility Status: Acute (3) Schizophrenia Status: Chronic (4) Hypertension Status: Chronic (5) Oxygen dependent Status: Chronic (6) Carpal tunnel syndrome, left Status: Acute (7) ARIAS on CPAP Status: Chronic (8) Fall Status: Acute (9) Fibula fracture Status: Acute (10) Medial malleolar fracture Status: Acute (11) Diabetes mellitus (12) Hypothyroidism Clinical Quality Measures DVT/VTE Risk/Contraindication: Risk Factor Score Per Nursin RFS Level Per Nursing on Admit: 4+=Very High SUSAN GARZA DO September 13, 2018 08:28
--- NOTE | 2018-09-13 08:37 | D/C HH Face to Face Order ---
D/C Face to Face Orders Instructions for Patient Via [facility], Patient Instructions/FollowUp: Dr Oliveros 09/14/18 Physician to follow Patient: [facility] Discharge Diet for Home: No Restrictions Patient Problems: Right ankle fracture Left CTS release surgery ARIAS New dona O2 at night Goals for Patient: Independent living Patient Data-Allergies,Ht & Wt Patient Allergies: Coded Allergies: Penicillins (Unverified Allergy, Unknown, RASH, 12/01/13) Sulfa (Sulfonamide Antibiotics) (Verified Allergy, Unknown, RASH, 12/01/13) Height (Feet): 4 Height (Inches): 59.00 Weight (Pounds): 199 Weight (Ounces): 4.8 Home Health Need/Face to Face Date of Face to Face: September 13, 2018 Clinical Findings: Generalized weakness and fatigue, Non or partial weight bearing, Unsteady gait I have seen Pt [id number]: Yes Discharged To: Home Diagnosis/Conditions: Right ankle fracture Left CTS release surgery ARIAS New dona O2 at night Patient is Homebound due to: CognItive deficits, Chris fall risk due to instabilty, Muscle weakness, Non-weight bearing, Pain w/ambulation Homebound Status Due to the above stated illness, injury or surgical procedure (medical condition or diagnosis) and associated clinical findings, the patient is homebound because of his/her inability to leave home except with aid of a supportive device and/or person AND leaving the home requires a considerable and taxing effort or is medically contraindicated. Pt req the following assistanc: Walker Home Health Nursing Orders Home Health Services Order: Nursing Services, [employer]-Evaluate & Treat, Physical Therapy-Evaluate & Treat Certify Stmt I certify that this patient is under my care and that I, a nurse practitioner or a physician; a senior agricultural assistant working with me, had a face to face encounter that - meets the physician face to face encounter requirements with this patient as dated. SUSAN GARZA DO September 13, 2018 08:37
[2018-09-13 09:08] VITALS: BP 108/71
[2018-09-13] MEDS: NICOTINE 21 MG (NICODERM) PATCH TD SCH (09:09)
[2018-09-13] MEDS: ENOXAPARIN 40 MG/0.4 ML (LOVENOX) SYR SC SCH (09:09)
[2018-09-13] MEDS: SENNA W/DOCUSATE (SENOKOT S) TABLET PO SCH (09:09)
[2018-09-13] MEDS: hydrOXYzine (VISTARIL) 25 MG capsule/tablet PO SCH (09:09)
[2018-09-13] MEDS: SERTRALINE 100 MG (ZOLOFT) TAB PO SCH (09:09)
[2018-09-13] MEDS: amLODIPine 10 MG (NORVASC) TAB PO SCH (09:09)
[2018-09-13] MEDS: SPIRONOLACTONE 25 MG (ALDACTONE) TAB PO SCH (09:09)
[2018-09-13] MEDS: MULTIVIT W/MINERALS TAB (THERAGRAN M) PO SCH (09:10)
[2018-09-13] MEDS: LACTULOSE SYRUP 10GM/15ML (ENULOSE) 30ML UDC PO SCH (09:10)
--- NOTE | 2018-09-13 11:25 | NUR ---
WILL AMARO demonstrates understanding of discharge instructions and accurately returns instructions upon questioning. Copy of Post-Discharge Instructions given to patient. WILL AMARO isable to manage continuing needs after discharge with Home Health and Private care support. Patients belongings returned to patient. Patient discharged from [facility] on 09/13/18 at 1125. WILL AMARO left floor via wheelchair, accompanied by significant other to private vehicle.
--- NOTE | 2018-09-13 11:28 | Therapy Team Discharge Summary ---
Therapy Discharge Summary Discharge Recommendations Date of Discharge 09/13/18 Therapy D/C Recommendations: Home w/ Family Support, [facility] ([facility]) Physical Therapy This patient was admitted to ARU post fall that resulted in a right ankle fracture, deeming her NWB right LE; in addition, she was NWB through the left wrist due to recent carpel tunnel surgery. Prior to admission, she was mod indep with all functional mobility. Upon admission, she was min assist with transfers and only able to hop a step to transfer and required max assist with wc mobility. Treatment has consisted of functional strengthening, balance, ther transfers, wc mobility training, safety and upright transfers. She has made good progress and has achieved all goals to a satisfactory level. She reports she does feel she can manage at home. Pt to discharge home this date. Occupational Therapy Impaired Self-Care Skills, Restricted Funct UE ROM PT Detention Goals Detention Goals PT Detention Goals Time Frame: Sep 27, 2018 Transfers (B,C,W/C) (FIM): 5 (met) Roll Left to Right (QC): 6 Sit to Lying (QC): 6 Lying-Sitting on Side/Bed(QC): 6 Sit to Stand (QC): 4 Chair/Rbc-gj-Bzhpc Xfer(QC): 4 Car Transfer (QC): 4 Gait (FIM): 1 (met) Distance: 20' Walk 10 feet (QC): 4 Walk 10ft-Uneven Surface(QC): 4 Gait Level of Assist: 4 Gait Assistive Device: Walker Platform Wheelchair (FIM): 5 (exceeded; scored a 6--see addended note) Distance: 150' Wheelchair Level of Assist: 5 Wheel 50 feet with 2 turns (QC: 4 Stairs (FIM): 1 # of Steps: 1 1 Step (curb) (QC): 3 OT Gluer Machine Operator Goals Detention Goals Time Frame: Sep 27, 2018 Eating (FIM): 7 (met-09/12/18) Eating (QC): 6 (met-09/12/18) Oral Hygiene (QC): 6 (met-09/12/18) Grooming(FIM): 6 (met-09/12/18) Bathing(FIM): 5 (met-09/12/18) Shower/Bathe Self (QC): 5 (met-09/12/18) Upper Body Dressing(FIM): 6 (met-09/12/18) Upper Body Dressing (QC): 6 (met-09/12/18) Lower Body Dressing(FIM): 5 (met-09/12/18) Lower Body Dressing (QC): 5 (met-09/12/18) On/Off Footwear (QC): 5 (met-09/12/18) Toileting(FIM): 5 (met-09/12/18) Toileting Hygiene (QC): 5 (met-09/12/18) Toilet/Commode Transfer(FIM): 5 (met-09/12/18) Toilet/Commode Transfer (QC): 5 (met-09/12/18) Shower Transfer(FIM): 5 (met-09/12/18) Additional Goals: 1-Demonstrate ADL Tasks, 2-Verbalize Understanding, 3- ImproveStrength/Nubia 1=Demonstrate adherence to instructed precautions during ADL tasks. 2=Patient will verbalize/demonstrate understanding of assistive devic es/modifications for ADL. 3=Patient will improve strength/tolerance for activity to enable patient to perform ADL's. VIET WATKINS PT September 13, 2018 11:28
--- NOTE | 2018-09-13 14:11 | Therapy Team Discharge Summary ---
Therapy Discharge Summary Discharge Recommendations Date of Discharge September 13, 2018 at 11:25 Therapy D/C Recommendations: Home w/ Family Support, [facility] (TCU/[facility]) Occupational Therapy Pt admitted to ARU following right ankle fracture. Pt NWB right LE and also left wrist secondary to recent carpal tunnel surgery. Pt utilizes platform FWW. On admission pt required mod assist for bathing and LE dressing and min assist with toilet transfer. Skilled OT intervention focused on ADL training, transfers, strengthening, and safety. Pt made good progress with therapy and by discharge is completing dressing and bathing with set up; transfers, toileting, and grooming with modified independence. Pt did not meet goal to be modified independent with UE dressing, but met other OT LTG. Pt discharged home this date. D/c ARU OT. Impaired Self-Care Skills, Restricted Funct UE ROM PT Air Control/Anti Air Warfare Officer Goals Air Control/Anti Air Warfare Officer Goals PT Assisted Goals Time Frame: Sep 27, 2018 Transfers (B,C,W/C) (FIM): 5 (met) Roll Left to Right (QC): 6 Sit to Lying (QC): 6 Lying-Sitting on Side/Bed(QC): 6 Sit to Stand (QC): 4 Chair/Dcx-zp-Sdyjb Xfer(QC): 4 Car Transfer (QC): 4 Gait (FIM): 1 (met) Distance: 20' Walk 10 feet (QC): 4 Walk 10ft-Uneven Surface(QC): 4 Gait Level of Assist: 4 Gait Assistive Device: Walker Platform Wheelchair (FIM): 5 (exceeded; scored a 6--see addended note) Distance: 150' Wheelchair Level of Assist: 5 Wheel 50 feet with 2 turns (QC: 4 Stairs (FIM): 1 # of Steps: 1 1 Step (curb) (QC): 3 OT Air Control/Anti Air Warfare Officer Goals Air Control/Anti Air Warfare Officer Goals Time Frame: Sep 27, 2018 Eating (FIM): 7 (met-09/12/18) Eating (QC): 6 (met-09/12/18) Oral Hygiene (QC): 6 (met-09/12/18) Grooming(FIM): 6 (met-09/12/18) Bathing(FIM): 5 (met-09/12/18) Shower/Bathe Self (QC): 5 (met-09/12/18) Upper Body Dressing(FIM): 6 (not met) Upper Body Dressing (QC): 6 (5-not met) Lower Body Dressing(FIM): 5 (met-09/12/18) Lower Body Dressing (QC): 5 (met-09/12/18) On/Off Footwear (QC): 5 (met-09/12/18) Toileting(FIM): 5 (met-09/12/18) Toileting Hygiene (QC): 5 (met-09/12/18) Toilet/Commode Transfer(FIM): 5 (met-09/12/18) Toilet/Commode Transfer (QC): 5 (met-09/12/18) Shower Transfer(FIM): 5 (met-09/12/18) Additional Goals: 1-Demonstrate ADL Tasks, 2-Verbalize Understanding, 3- ImproveStrength/Nubia 1=Demonstrate adherence to instructed precautions during ADL tasks. 2=Patient will verbalize/demonstrate understanding of assistive devices/modifications for ADL. 3=Patient will improve strength/tolerance for activity to enable patient to perform ADL's. BENNIE BUSBY OT September 13, 2018 14:11
== END 2018-09-13 11:25 | disposition home health service (06) | DRG 560 ==
PROVIDERS: ADMIT Internal Medicine; ATTEND Internal Medicine
DX: S82.851D Displaced trimalleolar fracture of right lower leg, subsequent encounter for closed fracture with routine healing (principal); Z47.89 Encounter for other orthopedic aftercare; E11.9 Type 2 diabetes mellitus without complications; E66.9 Obesity, unspecified; Z68.41 Body mass index [BMI] 40.0-44.9, adult; I10 Essential (primary) hypertension; G47.33 Obstructive sleep apnea (adult) (pediatric); E03.9 Hypothyroidism, unspecified; F20.9 Schizophrenia, unspecified; F41.9 Anxiety disorder, unspecified; Z99.81 Dependence on supplemental oxygen
CPT/HCPCS: 36415; 80053; 82962; 85025; 94640; 94760; 94761; 94762

== ENCOUNTER → 2018-10-04 | Outpatient (CLI) | payer MEDICARE, MEDICAID ==
[~2018-10-04] MED LIST changes: +APIX2.5T PO; +FLUT12AE4 IH; +HYDR-3820 PO; +NICO-588 TD; +SENN-20 PO
--- NOTE | 2018-10-04 12:07 | Diagnostic Imaging Report ---
INDICATION: Closed trimalleolar fracture, postsurgical followup. COMPARISON: 09/20/2018 TECHNIQUE: Three radiographs of the right ankle dated 10/04/2018. FINDINGS: Lateral plate and screw fixation of the distal fibula, two screws transfixing the medial malleolus, and two syndesmotic screws are again identified, stable from the prior examination without evidence of hardware complication. Medial malleolus fracture and distal fibular shaft fracture are again identified, in stable alignment. Persisting fracture lucencies remain. The medial malleolar fracture plane is slightly better visualized. No new fracture or dislocation. No destructive osseous process. Talar dome is unremarkable. Ankle mortise is stable. Tiny calcific densities adjacent to the tip of the medial malleolus are again identified and stable. IMPRESSION: 1. Slightly increased conspicuity of the medial malleolar fracture plane, favored to relate to resorption and early healing. Recommend continued radiographic followup. 2. Internally fixated distal fibular and tibial fractures remaining in stable alignment without new acute osseous abnormality. Dictated by: Dictated on workstation # [id number]
== END ==
LOC: ORTHO 10:30
PROVIDERS: ATTEND Orthopaedic Surgery
DX: S82.851D Displaced trimalleolar fracture of right lower leg, subsequent encounter for closed fracture with routine healing (principal); W19.XXXD Unspecified fall, subsequent encounter
CPT/HCPCS: 73610

== ENCOUNTER → 2018-10-18 | Outpatient (CLI) | payer MEDICARE, MEDICAID ==
--- NOTE | 2018-10-18 11:56 | Diagnostic Imaging Report ---
INDICATION: Trimalleolar fracture, followup post fixation TECHNIQUE: Three views of the right ankle CORRELATION STUDY: 10/04/2018 FINDINGS: Internal fixation hardware including long plate and screws of the distal fibula, two syndesmotic screws as well as two screws in the medial malleolus remain present. Fracture lines of the distal fibula and medial malleolus are again demonstrated and remain patent. Fracture line of the medial malleolus does extend into the medial aspect of the ankle. There does appear to be small bone fragments including in and around the joint space particularly along the medial aspect. Alignment generally stable. Some residual soft tissue edema present. IMPRESSION: Trimalleolar fractures with internal fixation. Fracture lines do remain present. Alignment is stable. Suggestion of small bone fragments in and around the joint. Dictated by: Dictated on workstation # [id number]
== END ==
LOC: ORTHO 10:48
PROVIDERS: ATTEND Orthopaedic Surgery
DX: S82.851D Displaced trimalleolar fracture of right lower leg, subsequent encounter for closed fracture with routine healing (principal); W19.XXXD Unspecified fall, subsequent encounter
CPT/HCPCS: 73610

== ENCOUNTER → 2018-11-01 | Outpatient (CLI) | payer MEDICARE, MEDICAID ==
--- NOTE | 2018-11-01 13:14 | Diagnostic Imaging Report ---
INDICATION: Fracture, followup. TECHNIQUE: 3 views right ankle, 9:38 AM. CORRELATION STUDY: 10/18/2018 FINDINGS: Internal fixation hardware including plate and screws transfixing the distal fibula and medial malleolus fractures. Fracture lines are still well visualized without significant interval healing. No bridging callus formation. Alignment overall generally stable. Ankle mortise appears maintained. There is presence of small bone fragments particularly in and around the medial aspect of the joint space. Some generalized soft tissue swelling. IMPRESSION: 1. Internally fixated trimalleolar right ankle fractures. No appreciable interval healing. Alignment unchanged. Small bone fragments in and around the medial aspect of the joint space. Dictated by: Dictated on workstation # [id number]
== END ==
LOC: ORTHO 09:28
PROVIDERS: ATTEND Orthopaedic Surgery
DX: S82.851D Displaced trimalleolar fracture of right lower leg, subsequent encounter for closed fracture with routine healing (principal); W19.XXXD Unspecified fall, subsequent encounter
CPT/HCPCS: 73610

== ENCOUNTER → 2018-11-08 | Outpatient (CLI) | payer MEDICARE, MEDICAID ==
--- NOTE | 2018-11-08 12:00 | Diagnostic Imaging Report ---
INDICATION: Screening for osteoporosis. COMPARISON: None. FINDINGS: The bone mineral density of the hips and spine was measured. There are no prior studies available for comparison. The T-score for the spine is 1.8. The total T-score for the left hip is -0.1 and for the right hip 0.1. The T-score for the right femoral neck is -0.9. All these values are within normal limits. However, the T-score for the left femoral neck is -1.6, and this does fall within the range of osteopenia. AP Spine L1-L4: [BMD (g/cm2): 1.413] [T-Score: 1.8] [Z-Score: 2.1] [BMD Previous: N/A] [BMD % Change: N/A] LT Hip Neck: [BMD (g/cm2): 0.822] [T-Score: -1.6] [Z-Score: -0.9] All of these values are within normal limits. However, the T-score for the left femoral neck is -1.6. LT Hip Total: [BMD (g/cm2):0.993] [T-Score:-0.1] [Z-Score: 0.2] [BMD Previous: N/A] [BMD % Change: N/A] RT Hip Neck: [BMD (g/cm2):0.914] [T-Score:-0.9] [Z-Score:-0.2] RT Hip Total: [BMD (g/cm2):1.016] [T-score:0.1] [Z-Score:0.4] [BMD Previous:N/A] [BMD % Change:N/A] *Indicates significant change from prior examination based on 95% confidence level. World Health Organization criteria for BMD interpretation classify patients as Normal (T-score at or above -1.0), Osteopenic (T-score between -1.0 and -2.5) or Osteoporotic (T-score at or below -2.5). LIMITATIONS AND MODIFICATION: None. FRACTURE RISK (FRAX SCORE): The ten year probability of (%): Major Osteoporotic Fracture: [N/A] Hip Fracture: [N/A] IMPRESSION: 1. The T-score for the spine and the total T-scores for the hips and for the right femoral neck are within normal limits. 2. The T-score for the left femoral neck indicates osteopenia. 3. See below National Osteoporosis Foundation guidelines on when to potentially initiate pharmacologic therapy. Based on the National Osteoporosis Foundation Guidelines, pharmacologic treatment should be initiated in any of the following, unless clinical conditions suggest otherwise: * Any patient with prior fragility fracture of the hip or vertebrae. A spine fracture indicates 5X risk for subsequent spine fracture and 2X risk for subsequent hip fracture. * Osteoporosis (T-score <-2.5). * Postmenopausal women and men age 50 and older with low bone mass/osteopenia (T-score between -1.0 and -2.5) by DXA and 10-year major osteoporotic fracture greater than 20% or a 10-year probability of hip fracture greater than 3%. These fracture risks are supplied above in the FRAX score, if applicable. * Clinician judgment and/or patient preferences may indicate treatment for people with 10-year fracture probabilities above or below these levels. Dictated by: Dictated on workstation # [id number]
== END ==
LOC: RAD 09:14
PROVIDERS: ATTEND Pediatrics
DX: Z13.820 Encounter for screening for osteoporosis (principal); M85.89 Other specified disorders of bone density and structure, multiple sites; M80.00XA Age-related osteoporosis with current pathological fracture, unspecified site, initial encounter for fracture
CPT/HCPCS: 77080

== ENCOUNTER → 2018-11-21 | Outpatient (CLI) | payer MEDICARE, MEDICAID ==
--- NOTE | 2018-11-21 10:35 | Diagnostic Imaging Report ---
INDICATION: Followup right ankle fracture. Time of exam: 10:17 AM Correlation is made with prior study from 11/01/2018. 3 views right ankle were obtained. Lateral plate and numerous screws transfix the distal fibular fracture. The hardware remains intact without evidence of loosening or fracture. Fracture line of the super syndesmotic fibular fracture does remain visible. Two fully threaded syndesmotic screws are in place. There are 2 partially threaded screws transfixing the medial malleolus. Fracture line through the medial malleolus remains clearly visible. Overall alignment is anatomic. Ankle mortise is maintained. IMPRESSION: ORIF right ankle fractures. Fracture lines remain visible. Alignment is anatomic. Dictated by: Dictated on workstation # [id number]
== END ==
LOC: ORTHO 10:00
PROVIDERS: ATTEND Orthopaedic Surgery
DX: S82.851D Displaced trimalleolar fracture of right lower leg, subsequent encounter for closed fracture with routine healing (principal)
CPT/HCPCS: 73610

== ENCOUNTER → 2019-01-17 | Outpatient (CLI) | payer MEDICARE, MEDICAID ==
--- NOTE | 2019-01-17 14:56 | Diagnostic Imaging Report ---
INDICATION: Routine screening. COMPARISON: 12/24/2017 and 02/19/2015. TECHNIQUE: 2D and 3D bilateral screening mammography was performed with CAD. FINDINGS: Scattered fibroglandular densities are identified bilaterally. The parenchymal pattern is stable. No new mass or malignant appearing microcalcifications are seen. Intraparenchymal lymph nodes in the axillary tail regions bilaterally are again noted and unchanged. IMPRESSION: No mammographic features suspicious for malignancy are identified. ACR BI-RADS Category 2: Benign findings. Result letter will be mailed to the patient. Note: At least 10% of breast cancer is not imaged by mammography. Dictated by: Dictated on workstation # [id number]
== END ==
LOC: RAD 09:56
PROVIDERS: ATTEND Family Medicine
DX: Z12.31 Encounter for screening mammogram for malignant neoplasm of breast (principal)
CPT/HCPCS: 77067

== ENCOUNTER → 2019-06-13 | Outpatient (CLI) | payer MEDICARE ==
[~2019-06-13] MED LIST changes: -TRAM50TA2 PO; +TRM50T PO
== END ==
LOC: CARD 12:14
PROVIDERS: ATTEND Physician Assistant
DX: J44.9 Chronic obstructive pulmonary disease, unspecified (principal); E11.9 Type 2 diabetes mellitus without complications; I10 Essential (primary) hypertension; E78.2 Mixed hyperlipidemia; I34.0 Nonrheumatic mitral (valve) insufficiency
CPT/HCPCS: 93306

== ENCOUNTER 2019-06-19 08:30 | Outpatient (CLI) | payer MEDICARE ==
[~2019-06-19] VITALS: Ht 149 cm; Wt 86.3 kg
[~2019-06-19 08:30] MED LIST changes: -MONT10TA24 PO; +MONT10TA26 PO; -TRAZ-190 PO; +TRAZ-227 PO
[2019-06-19] MEDS ORDERED: POLY17PO6 PO (08:39)
[2019-06-19] MEDS ORDERED: IBUP-1780 PO (08:39)
[2019-06-19] MEDS ORDERED: MAGN250T13 PO (08:39)
== END 2019-06-19 10:22 | disposition home or self-care (01) ==
LOC: PREOP 08:30
PROVIDERS: ATTEND Surgery
DX: Z01.818 Encounter for other preprocedural examination (principal)

== ENCOUNTER 2019-06-20 08:43 | Day surgery (SDC) | payer MEDICARE ==
[~2019-06-20] VITALS: Ht 149 cm; Wt 86.3 kg
[~2019-06-20 08:43] MED LIST changes: +IBUP-1780 PO; +LACTATED RINGERS 1,000 ML IV ONE; +MAGN250T13 PO; +POLY17PO6 PO
[2019-06-20 08:50] VITALS: BP 111/70
[2019-06-20] MEDS ORDERED: HURRICAINE EXT TUBE (BENZOCAINE) XX PRN (09:30)
[2019-06-20] MEDS ORDERED: LACTATED RINGERS 1,000 ML IV PRN (09:30)
--- NOTE | 2019-06-20 10:19 | Progress Note-Pre Operative ---
Pre-Operative Progress Note H&P Reviewed The H&P was reviewed, patient examined and no changes noted. Date Seen by Provider: Jun 20, 2019 Time Seen by Provider: 10:18 Date H&P Reviewed: Jun 20, 2019 Time H&P Reviewed: 10:18 Pre-Operative Diagnosis: family hx colon cancer, gerd, change in bowel habits HERACLIO CHAVARRIA DO Jun 20, 2019 10:19
[2019-06-20] MEDS ORDERED: PROPOFOL INJECTION 50 ML IV ONE (10:48)
[2019-06-20] MEDS ORDERED: MIDAZOLAM 2 MG/2 ML (VERSED) VIAL ONE (11:02)
[2019-06-20 11:30] VITALS: BP 124/59
[2019-06-20 11:35] VITALS: BP 127/60
[2019-06-20 11:40] VITALS: BP 137/82
[2019-06-20 11:50] VITALS: BP 137/82
[2019-06-20 12:34] VITALS: BP 128/68
--- NOTE | 2019-06-20 13:41 | Anesthesia-General Post-Op ---
MAC Patient Condition Mental Status/LOC: Same as Preop Cardiovascular: Satisfactory Nausea/Vomiting: Absent Respiratory: Satisfactory Pain: Controlled Complications: Absent Post Op Complications Complications None Follow Up Care/Instructions Patient Instructions None needed. Anesthesiology Discharge Order Discharge Order Patient is doing well, no complaints, stable vital signs, no apparent adverse anesthesia problems. No complications reported per nursing. LEIGHTON JOHNSON CRNA Jun 20, 2019 13:41
--- NOTE | 2019-06-20 14:54 | Progress Note-Post Operative ---
Post-Operative Progess Note Surgeon (s)/Radio Repairer Domestic (s) Surgeon HERACLIO CHAVARRIA DO Radio Repairer Domestic: na Pre-Operative Diagnosis family hx colon cancer, gerd, change in bowel habits Post-Operative Diagnosis plastic foreign body at GE junction diverticulosis Procedure & Operative Findings Date of Procedure 06/20/19 Procedure Performed/Findings egd c biopsies colonoscopy Anesthesia Type per client service coordinator Estimated Blood Loss Estimated blood loss (mL): none Specimens/Packing Specimens Removed antrum and ge HERACLIO CHAVARRIA DO Jun 20, 2019 14:54
--- NOTE | 2019-06-20 16:41 | OPERATIVE REPORT ---
DATE OF SERVICE: 06/20/2019 PREOPERATIVE DIAGNOSES: Family history of colon cancer, gastroesophageal reflux disease, change in bowel habits. POSTOPERATIVE DIAGNOSES: Plastic foreign body at GE junction, diverticulosis. PROCEDURE PERFORMED: EGD with biopsies, colonoscopy. ANESTHESIA: Per SEO ASSOCIATE. ESTIMATED BLOOD LOSS: None. SPECIMENS: Antrum and GE. INDICATIONS: The patient is a 58-year-old female with family history of colon cancer, GERD and change in bowel habits. She understands risks and benefits of procedure and wished to proceed with procedure. Consent was signed in the chart. DESCRIPTION OF PROCEDURE: The patient was taken to the endoscopy suite, placed in left lateral recumbent position. Timeout was performed. Scope was inserted in mouth, down the esophagus, stomach and into the duodenum. There were no polyps, masses, or ulcerations within the duodenum. Scope was slowly retracted back into the stomach where it was further insufflated. No polyps, masses, or ulcerations. Biopsy of the antrum was obtained. Scope was retroflexed noting some plastic foreign body that could represent TIF repair. No other polyps, masses, ulcerations or any other pathology noted. Scope was returned to its normal position, slowly withdrawn to the distal esophagus where biopsy of the GE junction was obtained. There were no polyps, masses, or ulcerations. Scope was slowly retracted back to completely remove noting no other pathology. Digital rectal exam was performed. There were no palpable polyps, masses, or ulcerations. Scope was inserted in the rectum, advanced all the way to cecum with minimal difficulty. Prep was adequate. Scope was then slowly retracted back. There were no polyps, masses, or ulcerations within the cecum, ascending, transverse, descending and sigmoid colon. Minimal amount of diverticulosis present. Scope was then continuously retracted back into the rectum, where it was also retroflexed noting no other pathology. Scope was returned to its normal position, slowly withdrawn until completely removed. The patient tolerated procedure well without any complications. She was taken to recovery room in stable condition. RECOMMENDATIONS: The patient will follow up in the office in 2 weeks to discuss pathology results. Any issues before that be seen at that time. The patient will need repeat colonoscopy in 5 years due to family history of colon cancer. Job ID: [id number] DocumentID: [id number] Dictated Date: 06/20/2019 14:55:39 Freezing Room Worker Date: 06/20/2019 16:40:45 Dictated By: HERACLIO CHAVARRIA DO MTDD
== END 2019-06-20 12:35 | disposition home or self-care (01) ==
LOC: ENDO 08:43
PROVIDERS: ATTEND Surgery
DX: T18.108A Unspecified foreign body in esophagus causing other injury, initial encounter (principal); K57.30 Diverticulosis of large intestine without perforation or abscess without bleeding; K21.9 Gastro-esophageal reflux disease without esophagitis; Z80.0 Family history of malignant neoplasm of digestive organs; J44.9 Chronic obstructive pulmonary disease, unspecified; M19.91 Primary osteoarthritis, unspecified site; E11.9 Type 2 diabetes mellitus without complications; I10 Essential (primary) hypertension; G47.33 Obstructive sleep apnea (adult) (pediatric); E78.2 Mixed hyperlipidemia; E03.9 Hypothyroidism, unspecified; F32.9 Major depressive disorder, single episode, unspecified; F41.9 Anxiety disorder, unspecified; E66.9 Obesity, unspecified; Z68.38 Body mass index [BMI] 38.0-38.9, adult; M32.9 Systemic lupus erythematosus, unspecified; F20.9 Schizophrenia, unspecified; Z79.899 Other long term (current) drug therapy; Z87.891 Personal history of nicotine dependence; Z88.0 Allergy status to penicillin; Z88.2 Allergy status to sulfonamides
CPT/HCPCS: 82962

== ENCOUNTER → 2019-06-26 | Outpatient (CLI) | payer MEDICARE, MEDICAID ==
[~2019-06-26] VITALS: Ht 150 cm; Wt 89.0 kg
[~2019-06-26] MED LIST changes: +CATHETER FLUSH 10 ML SYR IV PRN; +HYDR-34 PO; -HYDR-3816 PO; -HYDR-3820 PO; -LACTATED RINGERS 1,000 ML IV ONE; +REGADENOSON 0.4 MG/5 ML SYR (LEXISCAN) IV ONE
--- NOTE | 2019-06-26 11:59 | STRESS TEST ---
DATE OF SERVICE: 06/26/2019 LEXISCAN MYOVIEW STRESS TEST REPORT REFERRING PHYSICIAN: Baseline heart rate is 67. Baseline blood pressure 130/79. Baseline EKG is sinus rhythm with no ischemic changes. In summary, the patient was injected with 10.22 mCi of technetium-99 Myoview and the resting images were obtained. Then, the patient received 0.4 mg of Lexiscan followed by 31.6 mCi of technetium-99 Myoview. Throughout the test, there were no EKG changes. The resting and stress images were reviewed and compared in the short axis, horizontal long axis and vertical long axis views. Review of the images showed breast attenuation with decreased uptake involving the mid to apical anterior wall and anterolateral wall with mild reversibility. SSS is 5 and SDS is 5. TID value 1.07. On the gated images, the left ventricle appeared to be in normal size with normal contractility. Calculated ejection fraction is 76%. CONCLUSION: 1. The patient tolerated the Lexiscan well. 2. Breast attenuation with mild ischemia involving the mid to apical anterior wall and anterolateral wall. 3. Normal left ventricular size with normal contractility. Calculated ejection fraction is 76%. Job ID: [id number] DocumentID: [id number] Dictated Date: 06/26/2019 11:21:51 Double End Chucking Machine Operator Date: 06/26/2019 11:58:54 Dictated By: ANN-MARIE DIMAS MD
== END ==
LOC: CARD 07:42
PROVIDERS: ATTEND Internal Medicine Cardiovascular Disease
DX: I25.89 Other forms of chronic ischemic heart disease (principal); N64.89 Other specified disorders of breast; J44.9 Chronic obstructive pulmonary disease, unspecified; E78.2 Mixed hyperlipidemia; E11.9 Type 2 diabetes mellitus without complications
CPT/HCPCS: 78452; 93017

== ENCOUNTER 2019-07-05 08:39 | Day surgery (SDC) | payer MEDICARE ==
[2019-07-05] VITALS (10 sets, daily range): BP systolic 100–132; BP diastolic 70–85
[~2019-07-05] VITALS: Ht 152.4 cm; Wt 88.5 kg
[~2019-07-05 08:39] MED LIST changes: -CATHETER FLUSH 10 ML SYR IV PRN; -REGADENOSON 0.4 MG/5 ML SYR (LEXISCAN) IV ONE
[2019-07-05] MEDS ORDERED: NS IV 1000 ML 1,000 ML ONE (08:51)
[2019-07-05] MEDS ORDERED: HEParin (CATH LAB) 2,000 ML IV ONE (08:53)
[2019-07-05] MEDS ORDERED: LIDOCAINE 1% INJ 20 ML 20 ML VIAL ONE (08:53)
[2019-07-05] MEDS ORDERED: NS IV 1000 ML 1,000 ML IV SCH ×2 (09:00→11:27)
[2019-07-05 09:24] LABS: BILIRUBIN,URINE NEGATIVE (NEGATIVE); CLARITY,URINE CLEAR; COLOR,URINE YELLOW; GLUCOSE, URINE (UA) NEGATIVE (NEGATIVE); KETONES,URINE NEGATIVE (NEGATIVE); LEUKOCYTE ESTERASE ,URINE NEGATIVE (NEGATIVE); NITRITE,URINE NEGATIVE (NEGATIVE); PH,URINE 6.5 (5-9); PROTEIN,URINE NEGATIVE (NEGATIVE)
--- NOTE | 2019-07-05 09:24 | Diagnostic Imaging Report ---
EXAMINATION: Chest 1 view HISTORY: abnormal stress test COMPARISON: Chest radiograph on 09/02/2018. FINDINGS: The lung volumes are normal. No focal consolidation is seen. A small amount of bibasilar atelectasis is present. No large pleural effusion or pneumothorax is seen. The cardiomediastinal silhouette is enlarged. No acute osseous abnormality is seen. IMPRESSION: 1. Cardiomegaly. No overt pulmonary edema. 2. Small amount of bibasilar atelectasis. Dictated by: Dictated on workstation # [id number]
[2019-07-05 09:32] LABS: HEMOGLOBIN 14.8 G/DL (11.5-16.0); MEAN PLATELET VOLUME 10.5 FL (7.4-10.4); RED CELL DISTRIBUTION WIDTH 13.2 % (10.0-14.5); WHITE BLOOD COUNT 9.7 10^3/uL (4.3-11.0)
[2019-07-05 09:38] LABS: INR 1.1 (0.8-1.4); PROTHROMBIN TIME PATIENT 14.7 SEC (12.2-14.7)
[2019-07-05] MEDS ORDERED: TRAZ150T72 PO (09:38)
[2019-07-05] MEDS ORDERED: SERT25TA5 PO (09:38)
[2019-07-05] MEDS ORDERED: ICOS1CAP PO (09:38)
[2019-07-05 09:45] LABS: BACTERIA,URINE TRACE /HPF; RBC,URINE RARE /HPF
[2019-07-05 09:49] LABS: ALANINE AMINOTRANSFERASE 30 U/L (0-55); ALBUMIN 4.4 GM/DL (3.2-4.5); ALKALINE PHOSPHATASE 71 U/L (40-136); BILIRUBIN,TOTAL 0.4 MG/DL (0.1-1.0); BUN/CREATININE RATIO 16; CALCIUM 9.6 MG/DL (8.5-10.1); CARBON DIOXIDE 22 MMOL/L (21-32); CHLORIDE 107 MMOL/L (98-107); CHOLESTEROL 129 MG/DL (< 200); CREATININE SERUM 0.76 MG/DL (0.60-1.30); GFR ESTIMATED > 60; GLUCOSE 129 MG/DL (70-105); HDL CHOLESTEROL 30 MG/DL (40-60); SODIUM 141 MMOL/L (135-145); TOTAL PROTEIN 7.2 GM/DL (6.4-8.2); TRIGLYCERIDES 167 MG/DL (<150); VLDL CHOLESTEROL 33 MG/DL (5-40)
[2019-07-05] MEDS ORDERED: VERAPAMIL 5 MG/2 ML (CALAN) VIAL IV ONE ×2 (10:27→10:31)
[2019-07-05] MEDS ORDERED: HEParin 1000 UNIT/ML (10ML VIAL) FOR BOLUS ONE (10:27)
[2019-07-05] MEDS ORDERED: NITRO DRIP 25000 MCG/D5W 250 ML IV ONE (10:27)
[2019-07-05] MEDS ORDERED: MIDAZOLAM 5 MG/5 ML (VERSED) VIAL ONE (10:28)
[2019-07-05] MEDS ORDERED: fentaNYL INJECTION 100 MCG/2 ML AMP ONE (10:28)
[2019-07-05] MEDS ORDERED: PATIENT MAY USE OWN MEDS, ALL PO SCH (11:30)
--- NOTE | 2019-07-05 11:30 | Discharge Inst-Post CATH ---
Discharge Inst-CATH/EP Problems Reviewed?: Yes Post Cardiac Cath/EP D/C Inst Follow Up/Plan Hold metformin for [address] DIMAS's office in 4 weeks <b>CARDIAC CATH/EP PROCEDURE DISCHARGE INSTRUCTIONS</b> ACTIVITY * Go Home directly and rest. * Limit activity of the leg (or wrist if it was used) for 7 days including aerobics, swimming, jogging, bicycling, etc. * Restrict stair-climbing for 7 days if possible, if not, climb up with your non-cath leg, then bring together on the same step. * Avoid lifting, pushing, pulling or excessive movement of the affected extremity for 7 days. * Customary sexual activity may be resumed after 2 days-use caution not to use a position that strains or causes pain to the affected extremity. * No driving for 24 hours. * NO SMOKING. * Avoid straining for bowel movements for 7 days. * Gentle walking on level ground is allowed. * Returning to work will depend on the type of procedure and the results. Your doctor will discuss this with you. CALL YOUR DOCTOR FOR ANY OF THE FOLLOWING: *If bleeding from the puncture site occurs- Apply gentle pressure to site with clean cloth and call your doctor or EMS. * If a knot or lump forms under the skin, increases in size, or causes pain. * If bruising appears to be worsening or moving further down your leg instead of disappearing. * Temperature above 101 F. CARE OF YOUR GROIN INCISION; * Bruising or purple discoloration of the skin near the puncture site is common. * You may shower only, no bathtub bathing for 5 days. Be careful to avoid slipping as your leg may feel stiff. * If a closure device was used on your femoral artery, please see the attached guide regarding care of the device and your leg. * Leave dressing on FOR 24 hours. CARE OF YOUR WRIST INCISION; * Bruising or purple discoloration of the skin near the puncture site is common. * You may shower. * DO NOT submerge wrist. * Leave dressing on FOR 24 hours. ANN-MARIE DIMAS MD Jul 05, 2019 11:29
--- NOTE | 2019-07-05 11:33 | Cardiac Cath Report ---
Cardiac Cath Report Physician (s)/Director Selection And Administration (s) Physician ANN-MARIE DIMAS MD Pre-Procedure Diagnosis Pre-Procedure Diagnosis: Coronary artery disease Post-Procedure Note Procedure Start Date: Jul 05, 2019 Name of Procedure: Left heart catheterization Findings/Procedure Note PROCEDURE NOTE: After explaining the procedure to the patient, all pros and cons were explained, all questions were answered. The patient signed the consent and then she was placed on the cardiac catheterization laboratory. Attempt to access the right radial artery has failed to advance the wire and the radial artery probably due to anomaly in that artery, attempt was aborted. Groin was prepped SL fashion local anesthesia was used. Sheath placed in the right femoral artery. Livia right and left catheter were used to access the coronary system. Pigtail was used to access the left ventricular cavity. Left ventriculogram was not done pressure was measured Aortic arch angiogram was not done At the end of the procedure the sheath was removed. Closure device was used FINDINGS: Hemodynamics LV 89/15 end-diastolic pressure 15 Aorta 88/50 mean of 68 ANATOMY: Left Main is free of obstructive disease Left Anterior Descending has mild disease nonobstructive disease Left Circumflex has mild disease nonobstructive disease Right Coronory Artery has mild disease nonobstructive disease LV Gram was not done, pressure was measured CONCLUSION: 1. Mild coronary artery disease nonobstructive disease 2. Normal left ventricular end-diastolic pressure DISCUSSION AND RECOMMENDATION: Medical therapy is recommended Anesthesia Type: Conscious Sedation Estimated blood loss (mL): 25 ml Contrast Amount: 38 ml Total Radiation Dose: 455 mGy Post-Procedure Diagnosis Post-operative diagnosis: Chest pain Coronary artery disease Hypertension Hyperlipidemia ANN-MARIE DIMAS MD Jul 05, 2019 11:33
--- OUTSIDE RECORDS SUMMARY | 2019-07-07 03:59 | XMS REPORT ---
Author Author Alayna ROJAS Organization [facility] Address [address] [place] [address] Care Team Providers Care Cobol Programmer Name Role Phone RADHA ROJAS Unavailable PROBLEMS Type Condition ICD9-CM Code OUD20-ND Code Onset Dates Condition S tatus SNOMED Code Problem Type 2 diabetes mellitus wit hout complication, without long-term current use of insulin E11.9 Active 309705451 Problem Gastroesophageal reflux disease without esophagitis K21.9 Active 330297214 Problem History of lupus Z87.39 Active 312 079697 Problem Schizoaffective disorder, depressive type F25.1 Active 51640566 Problem Seasonal allergic rhinitis due to other allergic trigger J30.89 Active 645748270 Problem DM neuro manif type II E11.49 Active 86782511 Problem Primary insomnia F51.01 Active 397 2004 Problem Diabetic polyneuropathy associated with type 2 d iabetes mellitus E11.42 Active 279522849 Problem Chronic pain syndrome G89.4 Active 216746072 Problem 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, 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 Active 760552692 Problem Morbid obesity due to excess calories E66.01 Active 035778937 Problem OAB (overactive bladder) N32.81 Activ e 518670095 Problem Paranoid schizophrenia F20.0 Active 07679991 Problem Gastroesophageal reflux disease, esophagitis pre sence not specified K21.9 Active 178588628 Problem Tobacco abuse Z72.0 Active 406465 000 Problem Dyslipidemia E78.5 Active 3920395 07 Problem Migraine without aura and without status migrain osus, not intractable G43.009 Active 701491949 Problem Hypothyroidism (acquired) E03.9 Acti ve 447659532 Problem Essential hypertension I10 Active 04398585 Problem Seasonal allergic rhinitis due to pollen J30.1 Active 84488628 Problem Chronic obstructive pulmonary disease, unspecified COPD ty pe J44.9 Active 97489365 Problem COPD exacerbation J44.1 Active 19 7852676 Problem Depression with anxiety F41.8 Active 583573719 Problem Cigarette nicotine dependence without complication F17.210 Active 91906954 Problem Allergic rhinitis, unspecified seasonality, unspecifie d trigger J30.9 Active 49253144 Problem Constipation by delayed colonic transit K59.01 Active 75339697 Problem Constipation, unspecified constipation type K59.00 Active 56362771 Problem Other allergic rhinitis J30.89 Active 119860001 Problem Constipation, unspecified constipation type K59.00 Active 25229690 Problem Menopausal syndrome (hot flashes) N95.1 Active 947842352 Problem Other seasonal allergic rhinitis J30.2 Active 651684570 Problem BMI 31.0-31.9,adult Z68.31 Active 568880837 Problem Vaginal dryness, menopausal N95.1 Ac tive 72268392 Problem Diverticulitis K57.92 Active 58148 6006 Problem BMI 40.0-44.9, adult Z68.41 Active 465138359 ALLERGIES No Information ENCOUNTERS Encounter Location Date Diagnosis [place] [address] [address] 02 Jul, 2019 Encounter for Medicare annual wellness e xam Z00.00 [place] [address] [address] Jun, [place] [address] [address] 17 May, 2019 Paranoid schizophrenia F20.0 [place] [address] [address] 13 May, 2019 [place] [address] [address] 13 May, 2019 [place] [address] [address] 12 May, 2019 [place] [address] [address] 11 May, 2019 Well woman exam with routine gynecologic al exam Z01.419 ; Screening for STD (sexually transmitted disease) Z11.3 ; Screening for cervical cancer Z12.4 ; Diabetic polyneuropathy associated with type 2 diabetes mellitus E11.42 and Morbid obesity due to excess calories E66.01 [facility] [address] [address] May, [facility] [address] [address] Apr, [facility] [address] [address] Apr, Paranoid schizophrenia F20.0 [facility] [address] [address] Apr, [facility] [address] [address] Apr, [facility] [address] [facility] [id number] [address] [place] [address] Apr, Sore throat J02.9 and Non-re current acute suppurative otitis media of both ears without spontaneous rupture of tympanic membranes H66.003 [place] [address] [address] Apr, [facility] [address] [address] Apr, [place] [address] [address] Apr, Schizoaffective disorder, depressive typ e F25.1 [place] [address] [address] Mar, Schizoaffective disorder, depressive typ e F25.1 [place] [address] [address] Mar, [facility] [address] [facility] [id number] [address] [place] [address] Mar, Acute nasopharyngitis J00 [facility] [address] [address] Mar, [facility] [address] [place] [id number] Mar, [facility] [address] [id number] [place] [id number] Mar, Caries K02.9 [facility] [address] [id number] Feb, Dental examination Z01.20 and Caries K02 .9 [facility] [address] [address] Feb, Constipation, unspecified constipation t ype K59.00 ; Acute hemorrhoid K64.9 ; Tobacco abuse Z72.0 ; BMI 40.0-44.9, adult Z68.41 and Dyslipidemia E78.5 [place] [address] [address] Feb, [place] [address] [address] Feb, [place] [address] [address] Feb, Constipation, unspecified constipation t ype K59.00 ; Left lower quadrant abdominal pain R10.32 ; Hypothyroidism (acquired) E03.9 ; Tobacco abuse Z72.0 and BMI 40.0-44.9, adult Z68.41 [place] [address] [address] Feb, [facility] [address] [address] Feb, Chronic obstructive pulmonary disease, u nspecified COPD type J44.9 [facility] [address] [address] Jan, [facility] [address] [address] Jan, Paranoid schizophrenia F20.0 [facility] [address] [address] Jan, [facility] [address] [address] Jan, [place] [address] [address] 28 Jan, 2019 Diverticulitis K57.92 and Diarrhea, unsp ecified type R19.7 [place] [address] [address] 17 Jan, 2019 Paranoid schizophrenia F20.0 and Tobacco abuse Z72.0 [place] [address] [address] 15 Jan, 2019 Paranoid schizophrenia F20.0 [place] [address] [address] 14 Jan, 2019 Tobacco use Z72.0 [place] [address] [address] 14 Jan, 2019 Hypothyroidism (acquired) E03.9 and Type 2 diabetes mellitus without complication, without long-term current use of insulin E11.9 [place] [address] [address] Jan, Paranoid schizophrenia F20.0 [place] [address] [address] 08 Jan, 2019 [place] [address] [address] 04 Jan, 2019 Chronic obstructive pulmonary disease, u nspecified COPD type J44.9 [place] [address] [address] Dec, [place] [address] [address] Dec, Schizoaffective disorder, depressive typ e F25.1 [place] [address] [address] Dec, [place] [address] [address] Dec, [place] [address] [address] Dec, Type 2 diabetes mellitus with diabetic n europathic arthropathy, 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 ; Type 2 diabetes mellitus without complication, without long-term current use of insulin E11.9 ; Diabetic polyneuropathy associated with type 2 diabetes mellitus E11.42 ; Vaginal dryness, menopausal N95.1 ; Screening for malignant neoplasm of breast Z12.39 ; BMI 31.0-31.9,adult Z68.31 ; Tobacco abuse Z72.0 and Encounter for immunization Z23 [facility] [address] [address] Dec, Encounter for immunization Z23 [facility] [address] [address] Dec, [facility] [address] [address] Dec, [facility] [address] [address] Dec, [facility] [address] [address] Dec, [facility] [address] [address] Dec, [facility] [address] [address] Dec, [facility] [address] [address] Nov, Paranoid schizophrenia F20.0 [facility] [address] [address] Nov, [facility] [address] [address] Nov, [facility] [address] [address] Nov, [facility] [address] [address] Nov, Encounter for comprehensive diabetic monique t examination, type 2 diabetes mellitus E11.9 and Morbid obesity E66.01 [facility] [address] [place] [id number] [place] [address] Nov, [facility] [address] [address] Nov, [facility] [address] [address] Nov, [facility] [address] [address] Nov, Schizoaffective disorder, depressive typ e F25.1 [facility] [address] [address] Nov, Constipation by delayed colonic transit K59.01 [facility] [address] [address] Oct, [facility] [address] [address] Oct, [facility] [address] [address] Oct, [facility] [address] [address] Oct, Chronic obstructive pulmonary disease, u nspecified COPD type J44.9 [facility] [address] [address] Oct, [facility] [address] [address] Sep, Paranoid schizophrenia F20.0 [facility] [address] [address] Sep, [facility] [address] [address] Sep, [facility] [address] [address] Sep, Encounter for immunization Z23 [facility] [address] [address] Sep, [facility] [address] [place] [id number] [place] [address] Sep, Closed fracture of right ankle, sequela S82.891S ; Morbid obesity E66.01 and Heat rash L74.0 [facility] [address] [place] [id number] [place] [address] Sep, Schizoaffective disorder, depressive typ e F25.1 [facility] [address] [address] Sep, [facility] [address] [address] Sep, [facility] [address] [address] Sep, [facility] [address] [address] Sep, [facility] [address] [address] Sep, [facility] [address] [address] Sep, [facility] [address] [address] Sep, [facility] [address] [address] Sep, [facility] [address] [address] Sep, [facility] [address] [place] [id number] [place] [address] August, Paranoid schizophrenia F20.0 [facility] [address] [address] August, [facility] [address] [address] August, [facility] [address] [address] August, [facility] [address] [address] August, Type 2 diabetes mellitus without complic ation, without long-term current use of insulin E11.9 ; Closed fracture of right ankle, initial encounter S82.891A ; Constipation by delayed colonic transit K59.01 ; Osteoporosis with pathological fracture, initial encounter M80.00XA ; Encounter for immunization Z23 and Morbid obesity E66.01 [facility] [address] [address] August, [place] [address] [address] August, [place] [address] [address] August, Acquired deformity of musculoskeletal sy stem, unspecified M95.9 [place] [address] [address] August, Paranoid schizophrenia F20.0 [facility] [address] [place], [place] [id number] [place] [address] August, [place] [address] [address] Jul, [place] [address] [address] Jul, Diabetic polyneuropathy associated with type 2 diabetes mellitus E11.42 ; Paranoid schizophrenia F20.0 ; Preoperative clearance Z01.818 and Morbid obesity E66.01 [facility] [address] [address] Jul, Paranoid schizophrenia F20.0 [place] [address] [address] Jul, [facility] [address] [address] Jul, [facility] [address] [address] Jul, Cigarette nicotine dependence without co mplication F17.210 [place] [address] [address] Jul, Type 2 diabetes mellitus without complic ation, without long-term current use of insulin E11.9 and Hypothyroidism (acquired) E03.9 [place] [address] [address] Jul, Encounter for Medicare annual wellness e xam Z00.00 ; Morbid obesity due to excess calories E66.01 ; Diabetic polyneuropathy associated with type 2 diabetes mellitus E11.42 ; Chronic obstructive pulmonary disease, unspecified COPD type J44.9 ; Schizoaffective disorder, depressive type F25.1 ; Hypothyroidism (acquired) E03.9 and Morbid obesity E66.01 [place] [address] [address] Jun, Gastroesophageal reflux disease without esophagitis K21.9 [place] [address] [address] 28 Jun, 2018 Paranoid schizophrenia F20.0 [place] [address] [address] Jun, Schizoaffective disorder, depressive typ e F25.1 [place] [address] [address] Jun, [place] [address] [address] Jun, Schizoaffective disorder, depressive typ e F25.1 [place] [address] [address] Jun, Cigarette nicotine dependence without co mplication F17.210 [place] [address] [address] 18 Jun, 2018 Type 2 diabetes mellitus without complic ation, without long-term current use of insulin E11.9 [place] [address] [address] 15 Jun, 2018 [place] [address] [address] Jun, [facility] [address] [address] Jun, [facility] [address] [address] Jun, [place] [address] [address] Jun, [place] [address] [address] Jun, Paranoid schizophrenia F20.0 ; Type 2 di abetes mellitus without complication, without long-term current use of insulin E11.9 ; Hypothyroidism (acquired) E03.9 and Morbid obesity E66.01 [place] [address] [address] 28 May, 2018 Paranoid schizophrenia F20.0 [place] [address] [address] 20 May, 2018 Hypothyroidism (acquired) E03.9 and Dysl ipidemia E78.5 [place] [address] [address] 19 May, 2018 Cigarette nicotine dependence without co mplication F17.210 [place] [address] [address] May, [place] [address] [address] 14 May, 2018 Type 2 diabetes mellitus without complic ation, without long-term current use of insulin E11.9 ; Essential hypertension I10 ; Hypothyroidism (acquired) E03.9 and Dyslipidemia E78.5 [place] [address] [address] 13 May, 2018 [place] [address] [address] 08 May, 2018 Schizoaffective disorder, depressive typ e F25.1 [place] [address] [place] [id number] [place] [address] 08 May, 2018 Paranoid schizophrenia F20.0 [place] [address] [address] 07 May, 2018 Sandor [address]T [address] [place] [address] 07 May, 20 19 [place] [address] [address] May, [place] [address] [address] May, Type 2 diabetes mellitus without complic ation, without long-term current use of insulin E11.9 ; Essential hypertension I10 ; Hypothyroidism (acquired) E03.9 and Dyslipidemia E78.5 [place] [address] [address] May, [place] [address] [address] May, Acute nasopharyngitis J00 [facility] [address] [facility] [id number] [address] [place] [address] May, Allergic rhinitis, unspecifi ed seasonality, unspecified trigger J30.9 [place] [address] [address] May, [facility] [address] [address] Apr, Schizoaffective disorder, depressive typ e F25.1 [place] [address] [address] Apr, [place] [address] [address] Apr, Cigarette nicotine dependence without co mplication F17.210 [place] [address] [address] Apr, [place] [address] [address] Apr, Cigarette nicotine dependence without co mplication F17.210 [place] [address] [address] Apr, [place] [address] [address] Apr, Migraine without aura and without status migrainosus, not intractable G43.009 [place] [address] [address] Apr, Migraine without aura and without status migrainosus, not intractable G43.009 [place] [address] [address] Mar, Schizoaffective disorder, depressive typ e F25.1 ; BMI 45.0-49.9, adult Z68.42 and BMI 40.0-44.9, adult Z68.41 [place] [address] [address] Mar, Primary insomnia F51.01 [place] [address] [address] Mar, [place] [address] [address] 14 Feb, 2018 Primary insomnia F51.01 [place] [address] [address] Feb, [place] [address] [address] Jan, Schizoaffective disorder, depressive typ e F25.1 and BMI 45.0-49.9, adult Z68.42 [place] [address] [address] Jan, [place] [address] [address] 16 Jan, 2018 Type 2 diabetes mellitus with diabetic n europathic arthropathy, 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 ; Menopausal syndrome (hot flashes) N95.1 ; BMI 40.0-44.9, adult Z68.41 and Morbid obesity E66.01 [place] [address] [address] Jan, Paranoid schizophrenia F20.0 [place] [address] [address] Jan, [place] [address] [address] Jan, Schizoaffective disorder, depressive typ e F25.1 [place] [address] [address] Jan, [place] [address] [address] Jan, Chronic obstructive pulmonary disease, u nspecified COPD type J44.9 ; BMI 45.0-49.9, adult Z68.42 ; Type 2 diabetes mellitus without complication, without long-term current use of insulin E11.9 ; Hypothyroidism (acquired) E03.9 ; Encounter for immunization Z23 ; Gastroesophageal reflux disease without esophagitis K21.9 ; Primary insomnia F51.01 and Acute nasopharyngitis J00 [place] [address] [address] Dec, [place] [address] [address] Dec, Schizoaffective disorder, depressive typ e F25.1 and BMI 45.0-49.9, adult Z68.42 [place] [address] [address] Dec, [place] [address] [address] Dec, [place] [address] [address] Dec, Acute non-recurrent frontal sinusitis J0 1.10 [place] [address] [address] 18 Dec, 2017 Acute non-recurrent frontal sinusitis J0 1.10 ; Weakness of left leg R29.898 ; At high risk for falls Z91.81 and BMI 45.0-49.9, adult Z68.42 [facility] [address] [address] 17 Dec, 2017 [facility] [address] [address] Dec, [facility] [address] [address] Dec, Schizoaffective disorder, depressive typ e F25.1 [facility] [address] [facility] [id number] [address] [place] [address] Dec, Acute nasopharyngitis J00 [place] [address] [address] Dec, Schizoaffective disorder, depressive typ e F25.1 [place] [address] [address] Dec, [place] [address] [address] Nov, Schizoaffective disorder, depressive typ e F25.1 and BMI 45.0-49.9, adult Z68.42 [place] [address] [address] Nov, [place] [address] [address] Nov, [place] [address] [address] Nov, Schizoaffective disorder, depressive typ e F25.1 [place] [address] [address] Nov, Well woman exam Z01.419 ; BMI 45.0-49.9, adult Z68.42 ; Screening breast examination Z12.31 and Dietary counseling and surveillance Z71.3 [place] [address] [address] Nov, Paranoid schizophrenia F20.0 [place] [address] [address] Nov, Gastroesophageal reflux disease, esophag itis presence not specified K21.9 [place] [address] [address] Oct, Paranoid schizophrenia F20.0 [place] [id number] [place] [address] Oct, Chronic pain syndrome G89.4 and Schizoaffective disorder, depressive type F25.1 [place] [address] [address] Oct, Chronic pain syndrome G89.4 and Schizoaf fective disorder, depressive type F25.[address] [address] Oct, Type 2 diabetes mellitus without complic ation, without long-term current use of insulin E11.9 [place] [address] [address] 12 Oct, 2017 Essential hypertension I10 and DM neuro manif type II E11.[address] [address] Oct, [address] [address] Oct, Schizoaffective disorder, depressive typ e F25.1 and BMI 45.0-49.9, adult Z68.[address] [address] Oct, [place] [address] [address] Oct, Paranoid schizophrenia F20.[address] [address] Oct, Type 2 diabetes mellitus with diabetic n europathic arthropathy, 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 ; Essential hypertension I10 ; Hypothyroidism (acquired) E03.9 ; Chronic obstructive pulmonary disease, unspecified COPD type J44.9 and Diabetic polyneuropathy associated with type 2 diabetes mellitus E11.42 [facility] [address] [address] Sep, Paranoid schizophrenia F20.0 [facility] [address] [address] Sep, Paranoid schizophrenia F20.0 and BMI 45. 0-49.9, adult Z68.42 [place] [address] [address] Sep, Schizoaffective disorder, depressive typ e F25.1 [facility] [address] [address] Sep, [facility] [address] [address] Sep, Paranoid schizophrenia F20.0 [facility] [address] [address] Sep, [facility] [address] [address] Sep, Hypothyroidism (acquired) E03.9 [facility] [address] [address] Sep, [facility] [address] [address] August, Schizoaffective disorder, depressive typ e F25.1 [facility] [address] [address] August, [facility] [address] [address] August, [facility] [address] [address] August, [place] [address] [address] August, Paranoid schizophrenia F20.0 [place] [address] [address] August, History of lupus Z87.39 and Chronic pain syndrome G89.4 [place] [address] [address] August, [facility] [address] [place] [id number] [place] [address] August, Seasonal allergic rhinitis, unspecified trigger J30.2 and BMI 45.0-49.9, adult Z68.[address] [address] Jul, Schizoaffective disorder, depressive typ e F25.[address] [address] Jul, [place] [address] [address] Jul, Hypothyroidism (acquired) E03.[address] [address] Jul, Chronic obstructive pulmonary disease, u nspecified COPD type J44.9 and Type 2 diabetes mellitus without complication, without long-term current use of insulin E11.[address] [address] Jul, Paranoid schizophrenia F20.[address] [address] Jun, Hypothyroidism (acquired) E03.9 and Seas onal allergic rhinitis due to pollen J30.1 [facility] IN [facility] [address] [place] [id number] [address] [place] [id number] Jun, Shortness of breath at rest R06.02 ; COPD exacerbation J44.1 and BMI 45.0-49.9, adult Z68.42 [place] [id number] [address] Jun, [facility] [address] [place] [address] Jun, Paranoid schizophrenia F20.0 ; Depressio n with anxiety F41.8 and BMI 45.0-49.9, adult Z68.42 [place] [address] [place] [address] Jun, Schizoaffective disorder, depressive typ e F25.1 [facility] [address] [id number] Jun, Dental caries K02.9 [place] [address] [place] [address] Jun, Paranoid schizophrenia F20.0 [place] [address] [address] May, Migraine without aura and without status migrainosus, not intractable G43.009 ; DM neuro manif type II E11.49 and Type 2 diabetes mellitus without complication, without long-term current use of insulin E11.9 [place] [address] [address] May, Migraine without aura and without status migrainosus, not intractable G43.009 [place] [address] [address] May, Depression with anxiety F41.8 [facility] [address] [id number] May, [facility] [address] [address] May, [facility] [address] [place] [address] May, [facility] [address] [address] May, Hypothyroidism (acquired) E03.9 [place] [address] [address] 08 May, 2017 Paranoid schizophrenia F20.0 [place] [address] [address] 08 May, 2017 Type 2 diabetes mellitus without complic ation, without long-term current use of insulin E11.9 ; DM [...] N32.81 and Controlled substance agreement signed Z79.899 [place] [address] [address] May, Controlled substance agreement signed Z7 9.899 [place] [address] [address] Apr, [facility] [address] [id number] [place] [id number] Apr, Dental examination Z01.20 [place] [address] [address] Apr, Paranoid schizophrenia F20.0 [place] [address] [address] Apr, Hypertension, unspecified type I10 [place] [address] [address] Apr, Paranoid schizophrenia F20.0 [place] [address] [address] Apr, [place] [address] [address] Apr, Tobacco abuse Z72.0 [facility] [address] [address] Apr, [facility] [address] [address] Mar, [facility] [address] [address] Mar, Paranoid schizophrenia F20.0 and BMI 45. 0-49.9, adult Z68.42 [facility] [address] [address] Mar, Schizoaffective disorder, depressive typ e F25.1 [place] [address] [address] Mar, [place] [address] [address] Mar, Hypothyroidism, unspecified type E03.9 [place] [address] [address] Mar, Schizoaffective disorder, depressive typ e F25.1 [facility] [address] [facility] [id number] [address] [place] [address] Feb, Gastroenteritis K52.9 and BM I 45.0-49.9, adult Z68.42 [facility] [address] [address] Feb, [facility] [address] [address] Feb, [facility] [address] [address] Feb, [facility] [address] [address] 16 Feb, 2017 [facility] [address] [address] Feb, Paranoid schizophrenia F20.0 [facility] [address] [address] Feb, Gastroesophageal reflux disease without esophagitis K21.9 ; Other seasonal allergic rhinitis J30.2 ; Other allergic rhinitis J30.89 ; Tobacco abuse Z72.0 and BMI 40.0-44.9, adult Z68.[address] [address] Feb, Onychomycosis B35.1 ; Callus of foot L84 and DM neuro manif type II E11.[address] [address] Jan, Chronic allergic rhinitis J30.[address] [address] 16 Jan, [address] [address] Jan, Schizoaffective disorder, depressive typ e F25.[address] [address] Jan, [facility] [address] [place] [address] Jan, Sore throat J02.9 and Season al allergic rhinitis due to other allergic trigger J30.[address] [address] Jan, [address] [address] Jan, [facility] [address] [place], [place] [id number] [address] [place] [address] Jan, Chronic allergic rhinitis J3 0.[address] [address] 27 Dec, 2016 Paranoid schizophrenia F20.0 ; Primary i nsomnia F51.01 and Schizoaffective disorder, depressive type F25.[address] [address] 21 Sep, 2017 Chronic pain syndrome G89.4 ; Cervicalgi a of umywvduk-ytoztdw-lvgkx region M54.2 ; Menopausal syndrome (hot flashes) N95.1 and Encounter for immunization Z23 [place] [address] [place] [id number] 14 Dec, 2016 [place] [address] [address] 13 Dec, 2016 [place] [address] [address] 08 Dec, 2016 Paranoid schizophrenia F20.0 [place] [address] [address] Dec, Schizoaffective disorder, depressive typ e F25.1 [place] [address] [address] Nov, Hypothyroidism, unspecified type E03.9 [facility] [address] [facility] [id number] [address] [place] [address] Nov, Acute seasonal allergic rhin itis due to other allergen J30.89 [place] [address] [address] Nov, [place] [address] [address] Nov, Hypothyroidism, unspecified type E03.9 a nd Other elevated white blood cell (WBC) count D72.828 [place] [address] [address] Nov, Schizoaffective disorder, depressive typ e F25.1 [place] [address] [address] Nov, Paranoid schizophrenia F20.0 [place] [address] [address] Nov, Type 2 diabetes mellitus without complic ation, without long-term current use of insulin E11.9 ; Morbid obesity due to excess calories E66.01 and Chronic pain syndrome G89.4 [place] [address] [address] Oct, Paranoid schizophrenia F20.0 [facility] [address] [address] Oct, [facility] [address] [address] Oct, Schizoaffective disorder, depressive typ e F25.1 [place] [address] [address] Oct, Hypothyroidism, unspecified type E03.9 a nd Other elevated white blood cell (WBC) count D72.828 [place] [address] [address] Oct, Morbid obesity due to excess calories E6 6.01 ; Chronic obstructive pulmonary disease, unspecified COPD type J44.9 ; History of lupus Z87.39 ; Hypothyroidism, unspecified type E03.9 ; Gastroesophageal reflux disease without esophagitis K21.9 ; Primary insomnia F51.01 and Chronic pain syndrome G89.4 [place] [address] [address] Sep, [place] [address] [address] Sep, [place] [address] [address] Sep, [place] [address] [address] Sep, Paranoid schizophrenia F20.0 [facility] [address] [address] Sep, [place] [address] [address] Sep, Paranoid schizophrenia F20.0 [facility] [address] [address] Sep, [place] [address] [address] August, Paranoid schizophrenia F20.0 [place] [address] [address] Jul, [place] [address] [address] Jul, Type 2 diabetes mellitus without complic ation, without long-term current use of insulin E11.9 ; Morbid obesity due to excess calories E66.01 ; Depression with anxiety F41.8 ; Hypothyroidism, unspecified type E03.9 ; Seasonal allergic rhinitis due to other allergic trigger J30.89 ; Pain, dental K08.89 and Gastroesophageal reflux disease without esophagitis K21.9 [facility] [address] [id number] [place] [id number] 12 Jul, 2016 Dental examination Z01.20 [place] [address] [address] 07 Jul, 2016 Paranoid schizophrenia F20.0 [place] [address] [address] 13 Jun, 2016 Paranoid schizophrenia F20.0 and Depress ion with anxiety F41.8 [place] [address] [address] Jun, Paranoid schizophrenia F20.0 and Depress ion with anxiety F41.8 [place] [address] [address] Jun, [place] [address] [address] Jun, [facility] [place] [address] [place] [id number] [address] [place] [address] Jun, Seasonal allergic rhinitis d ue to other allergic trigger J30.89 [facility] [place] [id number] [address] [place] [address] May, Sore throat J02.9 ; Other vi ral agents as the cause of diseases classified elsewhere B97.89 and Acute upper respiratory infection, unspecified J06.9 [place] [address] [address] 08 May, 2016 Paranoid schizophrenia F20.0 and Depress ion with anxiety F41.8 [place] [address] [address] 31 Apr, 2016 Other seasonal allergic rhinitis J30.2 [place] [address] [address] Apr, Paranoid schizophrenia F20.0 and Depress ion with anxiety F41.8 [facility] [address] [address] 07 Apr, 2016 Bronchitis J40 and Sore thro at J02.9 [place] [address] [address] 03 Apr, 2016 Type 2 diabetes mellitus without complic ation, without long-term current use of insulin E11.9 [facility] [place] [address] [address] 02 Apr, 2016 Bronchitis J40 [place] [address] [address] Apr, [place] [address] [address] Apr, [place] [address] [address] Mar, Type 2 diabetes mellitus without complic ation, without long-term current use of insulin E11.9 ; Paranoid schizophrenia F20.0 ; Depression with anxiety F41.8 ; ARIAS on CPAP G47.33 ; Gastroesophageal reflux disease without esophagitis K21.9 ; Acquired hypothyroidism E03.9 ; Chronic obstructive pulmonary disease, unspecified COPD type J44.9 ; OAB (overactive bladder) N32.81 ; Chronic pain syndrome G89.4 ; Peripheral edema R60.9 and Other seasonal allergic rhinitis J30.2 [place] [address] [address] Mar, Paranoid schizophrenia F20.0 and Depress ion with anxiety F41.8 [facility] [address] [address] Feb, [facility] [address] [address] Feb, [facility] [address] [address] Feb, [facility] [address] [place] [address] Feb, [facility] [address] [address] Feb, Type 2 diabetes mellitus without complic ation, without long-term current use of insulin E11.9 ; ARIAS on CPAP G47.33 and Preoperative evaluation to rule out surgical contraindication Z01.818 [place] [address] [address] Feb, Paranoid schizophrenia F20.0 and Depress ion with anxiety F41.8 [place] [address] [address] Jan, [place] [address] [address] Jan, Paranoid schizophrenia F20.0 and Depress ion with anxiety F41.8 [place] [address] [address] Jan, [facility] [address] [address] Jan, Muscle strain T14.8 [facility] [address] [address] Jan, Paranoid schizophrenia F20.0 [facility] [address] [address] Jan, [facility] [address] [address] Jan, Paranoid schizophrenia F20.0 and Depress ion with anxiety F41.8 [facility] [address] [address] Jan, [facility] [address] [address] Jan, [facility] [address] [address] Dec, [facility] [address] [address] 23 Dec, 2015 Paranoid schizophrenia F20.0 [facility] [address] [address] 16 Dec, 2015 Paranoid schizophrenia F20.0 and Depress ion with anxiety F41.8 [facility] [address] [address] Nov, [facility] [address] [address] Nov, Paranoid schizophrenia F20.0 [facility] [address] [address] Nov, Paranoid schizophrenia F20.0 and Depress ion with anxiety F41.8 [facility] [address] [address] Nov, Type 2 diabetes mellitus without complic ation, without long-term current use of insulin E11.9 ; Paranoid schizophrenia F20.0 ; Chronic obstructive pulmonary disease, unspecified COPD type J44.9 ; Morbid obesity due to excess calories E66.01 and Parkinsonian tremor G20 [facility] [address] [address] Nov, [facility] [address] [address] Oct, Paranoid schizophrenia F20.0 [facility] [address] [address] Oct, Paranoid schizophrenia F20.0 [facility] [address] [address] Oct, Paranoid schizophrenia F20.0 and Depress ion with anxiety F41.8 [place] [address] [address] Oct, [place] [address] [address] Oct, Paranoid schizophrenia F20.0 and Depress ion with anxiety F41.8 [place] [address] [address] Oct, Nasal sore J34.89 [place] [address] [address] Oct, Type 2 diabetes mellitus without complic ation, without long-term current use of insulin E11.9 ; Depression with anxiety F41.8 ; Hypothyroidism, unspecified type E03.9 and History of lupus Z87.39 [place] [address] [address] Oct, [place] [address] [address] Oct, Type 2 diabetes mellitus without complic ation, without long-term current use of insulin E11.9 ; Paranoid [...] edema R60.9 and History of lupus Z87.39 [place] [address] [address] Feb, [place] [address] [address] 14 Jan, 2015 [place] [address] [place] [id number] Jan, [facility] [address] [id number] [place] [address] Jan, [facility] [address] [id number] [place] [address] Dec, [facility] [address] [id number] [place] [address] Nov, [facility] [address] [place] [id number] [place] [address] Nov, [facility] [address] [id number] [place] [address] Oct, [facility] [address] [place] [id number] [place] [address] Oct, [facility] [address] [place] [id number] [place] [address] Oct, [facility] [address] [place] [id number] [place] [address] Sep, Allergic rhinitis 477.9 [facility] [address] [place] [id number] [place] [address] Sep, Rhinitis, allergic 477.9 [facility] [address] [place] [id number] [place] [address] Sep, Rhinitis, allergic 477.9 [facility] [address] [place] [id number] [place] [address] Sep, [facility] [address] [place] [id number] [place] [address] August, [facility] [address] [place] [id number] [place] [address] August, [facility] [address] [place] [id number] [place] [address] August, [facility] [place] [facility] [address] [place] [id number] [place] [address] Jul, [facility] [address] [place] [id number] [place] [address] 14 Jul, 2014 [facility] [place] [facility] [address] [facility] [id number] [place] [address] 13 Jul, 2014 [facility] [place] [facility] [address] [facility] [id number] [place] [address] 16 Jun, 2014 [facility] [place] [facility] [address] [id number] [place] [address] 16 Jun, 2014 [facility] [place] [facility] [address] [id number] [place] [address] 12 Jun, 2014 [facility] [place] [facility] [address] [facility] [id number] [place] [address] Jun, [facility] [place] [facility] [address] [id number] [place] [address] Jun, [facility] [place] [facility] [address] [id number] [place] [address] Jun, [facility] [place] [facility] [address] [id number] [place] [address] Jun, [facility] [place] [facility] [address] [id number] [place] [address] Jun, [facility] [place] [facility] [address] [id number] [place] [address] May, [facility] [place] [facility] [address] [id number] [place] [address] May, [facility] [place] [facility] [address] [id number] [place] [address] May, [facility] [place] [facility] [address] [facility] [id number] [place] [address] May, [facility] [place] [facility] [address] [id number] [place] [address] Apr, [facility] [place] [facility] [address] [id number] [place] [address] Mar, [facility] [place] [facility] [address] [id number] [place] [address] Mar, [facility] [place] [facility] [address] [id number] [place] [address] Mar, [facility] [place] [facility] [address] [id number] [place] [address] Mar, [facility] [place] [facility] [address] [id number] [place] [address] Mar, [facility] [place] [facility] [address] [id number] [place] [address] Mar, [facility] [place] [facility] [address] [id number] [place] [address] Mar, [facility] [place] [facility] [address] [id number] [place] [address] Mar, [facility] [place] [facility] [address] [id number] [place] [address] Mar, [facility] [place] [facility] [address] [id number] [place] [address] Feb, [facility] [place] [facility] [address] [id number] [place] [address] Feb, [facility] [place] [facility] [address] [id number] [place] [address] Feb, [facility] [place] [facility] [address] [id number] [place] [address] Feb, [facility] [place] [facility] [address] [id number] [place] [address] Feb, [facility] [place] [facility] [address] [id number] [place] [address] Feb, [facility] [place] [facility] [address] [id number] [place] [address] Feb, [facility] [place] [facility] [address] [id number] [place] [address] Feb, [facility] [place] [facility] [address] [id number] [place] [address] Jan, [facility] [place] [facility] [address] [id number] [place] [address] Jan, 2014 [facility] [place] [facility] [address] [facility] [id number] [place] [address] 16 Jan, 2014 [facility] [place] [facility] [address] [facility] [id number] [place] [address] 16 Jan, 2014 [facility] [place] [facility] [address] [facility] [id number] [place] [address] 15 Jan, 2014 [facility] [place] [facility] [address] [facility] [id number] [place] [address] 15 Jan, 2014 [facility] [place] [facility] [address] [facility] [id number] [place] [address] 14 Jan, 2014 [facility] [place] [facility] [address] [facility] [id number] [place] [address] 14 Jan, 2014 [facility] [place] [facility] [address] [id number] [place] [address] 14 Jan, 2014 [facility] [place] [facility] [address] [id number] [place] [address] 14 Jan, 2014 [facility] [place] [facility] [address] [facility] [id number] [place] [address] 18 Dec, 2013 [facility] [place] [facility] [address] [facility] [id number] [place] [address] 18 Dec, 2013 [facility] [place] [facility] [address] [facility] [id number] [place] [address] 10 Dec, 2013 [facility] [place] [facility] [address] [id number] [place] [address] 10 Dec, 2013 [facility] [place] [facility] [address] [facility] [id number] [place] [address] Nov, [facility] [place] [facility] [address] [facility] [id number] [place] [address] Nov, [facility] [place] [facility] [address] [facility] [id number] [place] [address] Nov, [facility] [place] [facility] [address] [id number] [place] [address] Nov, [facility] [place] [facility] [address] [id number] [place] [address] Nov, [facility] [place] [facility] [address] [id number] [place] [address] Oct, [facility] [place] [facility] [address] [id number] [place] [address] Oct, [facility] [place] [facility] [address] [id number] [place] [address] Oct, [facility] [place] [facility] [address] [id number] [place] [address] Oct, [facility] [place] [facility] [address] [id number] [place] [address] Sep, [facility] [place] [facility] [address] [id number] [place] [address] Sep, [facility] [place] [facility] [address] [id number] [place] [address] Sep, [facility] [place] [facility] [address] [id number] [place] [address] Sep, [facility] [place] [facility] [address] [id number] [place] [address] Sep, [facility] [place] [facility] [address] [id number] [place] [address] Sep, [facility] [place] [facility] [address] [id number] [place] [address] Sep, [facility] [place] [facility] [address] [id number] [place] [address] Sep, [facility] [place] [facility] [address] [id number] [place] [address] August, [facility] [place] [facility] [address] [id number] [place] [address] August, [facility] [place] [facility] [address] [id number] [place] [address] August, [facility] [place] [facility] [address] [id number] [place] [address] August, [facility] [place] [facility] [address] [id number] [place] [address] August, [facility] [place] [facility] [address] [id number] [place] [address] August, [facility] [place] [facility] [address] [id number] [place] [address] August, [facility] [place] [facility] [address] [id number] [place] [address] Jul, [facility] [place] [facility] [address] [id number] [place] [address] Jul, [facility] [place] [facility] [address] [id number] [place] [address] Jul, [facility] [place] [facility] [address] [id number] [place] [address] Jul, [facility] [place] [facility] [address] [id number] [place] [address] Jul, [facility] [place] [facility] [address] [id number] [place] [address] Jul, [facility] [place] [facility] [address] [id number] [place] [address] Jul, [facility] [place] [facility] [address] [id number] [place] [address] Jul, [facility] [place] [facility] [address] [id number] [place] [address] Jul, [facility] [place] [facility] [address] [id number] [place] [address] Jul, [facility] [place] [facility] [address] [id number] [place] [address] Jul, [facility] [place] [facility] [address] [id number] [place] [address] Jul, [facility] [place] [facility] [address] [id number] [place] [address] Jun, [facility] [place] [facility] [address] [id number] [place] [address] Jun, [facility] [address] [id number] [place] [address] Jun, [facility] [address] [id number] [place] [address] Jun, [facility] [address] [id number] [place] [address] Jun, [facility] [address] [id number] [place] [address] May, [facility] [address] [facility] [id number] [place] [address] May, [facility] [address] [id number] [place] [address] May, [facility] [address] [id number] [place] [address] May, [facility] [address] [id number] [place] [address] May, [facility] [address] [id number] [place] [address] May, [facility] [address] [id number] [place] [address] May, [facility] [address] [id number] [place] [address] May, [facility] [address] [id number] [place] [address] Mar, [facility] [address] [id number] [place] [address] Mar, [facility] [address] [id number] [place] [address] Mar, [facility] [address] [id number] [place] [address] Mar, [facility] [address] [id number] [place] [address] Mar, [facility] [address] [id number] [place] [address] Mar, [facility] [address] [id number] [place] [address] Feb, [facility] [address] [id number] [place] [address] Feb, [facility] [address] [id number] [place] [address] Jan, [facility] [address] [id number] [place] [address] Jan, [facility] [address] [id number] [place] [address] Jan, [facility] [address] [id number] [place] [address] Jan, [facility] [address] [id number] [place] [address] Jan, [facility] [address] [id number] [place] [address] Jan, [facility] [address] [id number] [place] [address] Jan, [facility] [address] [id number] [place] [address] Jan, [facility] [address] [id number] [place] [address] Jan, [facility] [address] [id number] [place] [address] Jan, [facility] [address] [id number] [place] [address] Dec, [facility] [address] [id number] [place] [address] Nov, [facility] [address] [id number] [place] [address] Nov, [facility] [address] [id number] [place] [address] Nov, [facility] [id number] [place] [address] Oct, [facility] [id number] [place] [address] Oct, [facility] [id number] [place] [address] August, [facility] [id number] [place] [address] Apr, [facility] [id number] [place] [address] Apr, [facility] [address] [address] Feb, [facility] [id number] [place] [address] Feb, [facility] [id number] [place] [address] Dec, [facility] [id number] [place] [address] Dec, [facility] [id number] [place] [address] Oct, [facility] [id number] [place] [address] Oct, [facility] [id number] [place] [address] Oct, [facility] [id number] [place] [address] Jul, IMMUNIZATIONS No Known Immunizations SOCIAL HISTORY [...] 2 Medical History 05/2016--ECHO- EF 60% w/ horn tolic dysfunction, left ventricular hypertrophy-mild mitral/tric. regurg. est. 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 Byers on November 03 in addition to EGD Surgical History carpal tunnel Surgical History ankle surgery Hospitalization History several hospitalizations for psychosis/mental illness, last one in [facility] 4 years ago Hospitalization History broken ankle 08/2018
--- OUTSIDE RECORDS SUMMARY | 2019-07-07 03:59 | XMS REPORT ---
Author Author Alayna ROJAS Organization [facility] Address [address] [place] [address] Care Team Providers Care Radar Engineer Name Role Phone RADHA ROJAS Unavailable PROBLEMS Type Condition ICD9-CM Code [id number] Code Onset Dates Condition S tatus SNOMED Code Problem Type 2 diabetes mellitus wit hout complication, without long-term current use of insulin E11.9 Active 247389276 Problem Gastroesophageal reflux disease without esophagitis K21.9 Active 507198301 Problem History of lupus Z87.39 Active 312 498953 Problem Schizoaffective disorder, depressive type F25.1 Active 86781430 Problem Seasonal allergic rhinitis due to other allergic trigger J30.89 Active 650814213 Problem DM neuro manif type II E11.49 Active 43636751 Problem Primary insomnia F51.01 Active 397 2004 Problem Diabetic polyneuropathy associated with type 2 d iabetes mellitus E11.42 Active 838428582 Problem Chronic pain syndrome G89.4 Active 370126807 Problem 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, 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 Active 658778036 Problem Morbid obesity due to excess calories E66.01 Active 389088603 Problem OAB (overactive bladder) N32.81 Activ e 648372594 Problem Paranoid schizophrenia F20.0 Active 75534776 Problem Gastroesophageal reflux disease, esophagitis pre sence not specified K21.9 Active 704042530 Problem Tobacco abuse Z72.0 Active 139931 000 Problem Dyslipidemia E78.5 Active 0272961 07 Problem Migraine without aura and without status migrain osus, not intractable G43.009 Active 459706558 Problem Hypothyroidism (acquired) E03.9 Acti ve 218302578 Problem Essential hypertension I10 Active 03335012 Problem Seasonal allergic rhinitis due to pollen J30.1 Active 32766538 Problem Chronic obstructive pulmonary disease, unspecified COPD ty pe J44.9 Active 54087451 Problem COPD exacerbation J44.1 Active 19 6937963 Problem Depression with anxiety F41.8 Active 014807963 Problem Cigarette nicotine dependence without complication F17.210 Active 74963348 Problem Allergic rhinitis, unspecified seasonality, unspecifie d trigger J30.9 Active 64457391 Problem Constipation by delayed colonic transit K59.01 Active 61050618 Problem Constipation, unspecified constipation type K59.00 Active 95014634 Problem Other allergic rhinitis J30.89 Active 467628068 Problem Constipation, unspecified constipation type K59.00 Active 76626489 Problem Menopausal syndrome (hot flashes) N95.1 Active 411828425 Problem Other seasonal allergic rhinitis J30.2 Active 354407899 Problem BMI 31.0-31.9,adult Z68.31 Active 351217099 Problem Vaginal dryness, menopausal N95.1 Ac tive 41136030 Problem Diverticulitis K57.92 Active 27119 6006 Problem BMI 40.0-44.9, adult Z68.41 Active 742369961 ALLERGIES No Information ENCOUNTERS Encounter Location Date Diagnosis [place] [address] [address] 02 Jul, 2019 Encounter for Medicare annual wellness e xam Z00.00 [place] [address] [address] Jun, [place] [address] [address] Jun, [place] [address] [address] 17 May, 2019 Paranoid schizophrenia F20.0 [place] [address] [address] 13 May, 2019 [place] [address] [address] 13 May, 2019 [place] [address] [address] 12 May, 2019 [place] [address] [address] 11 May, 2019 Well woman exam with routine gynecologic al exam Z01.419 ; Screening for STD (sexually transmitted disease) Z11.3 ; Screening for cervical cancer Z12.4 ; Diabetic polyneuropathy associated with type 2 diabetes mellitus E11.42 and Morbid obesity due to excess calories E66.01 [place] [address] [address] May, [place] [address] [address] Apr, [place] [address] [address] Apr, Paranoid schizophrenia F20.0 [place] [address] [address] Apr, [place] [address] [address] Apr, [facility] [place] [address] [address] [place] [id number] [place] [address] Apr, Sore throat J02.9 and Non-re current acute suppurative otitis media of both ears without spontaneous rupture of tympanic membranes H66.003 [place] [address] [address] Apr, [place] [address] [address] Apr, [place] [address] [address] Apr, Schizoaffective disorder, depressive typ e F25.1 [place] [address] [address] Mar, Schizoaffective disorder, depressive typ e F25.1 [place] [address] [address] Mar, [facility]ALK IN [facility] [address] [facility] [id number] [address] [place] [address] Mar, Acute nasopharyngitis J00 [place] [address] [address] [place] [id number] Mar, [facility] [address] [address] Mar, [facility] [address] [id number] Mar, Caries K02.9 [facility] [address] [id number] Feb, Dental examination Z01.20 and Caries K02 .9 [place] [address] [address] Feb, Constipation, unspecified constipation t ype K59.00 ; Acute hemorrhoid K64.9 ; Tobacco abuse Z72.0 ; BMI 40.0-44.9, adult Z68.41 and Dyslipidemia E78.5 [place] [address] [address] Feb, [place] [address] [address] Feb, [place] [address] [address] Feb, Constipation, unspecified constipation t ype K59.00 ; Left lower quadrant abdominal pain R10.32 ; Hypothyroidism (acquired) E03.9 ; Tobacco abuse Z72.0 and BMI 40.0-44.9, adult Z68.41 [place] [address] [address] Feb, [place] [address] [address] Feb, Chronic obstructive pulmonary disease, u nspecified COPD type J44.9 [place] [address] [address] Jan, [place] [address] [address] Jan, Paranoid schizophrenia F20.0 [place] [address] [address] Jan, [place] [address] [address] Jan, [place] [address] [address] Jan, Diverticulitis K57.92 and Diarrhea, unsp ecified type R19.7 [place] [address] [address] 17 Jan, 2019 Paranoid schizophrenia F20.0 and Tobacco abuse Z72.0 [place] [address] [address] 15 Jan, 2019 Paranoid schizophrenia F20.0 [place] [address] [address] 14 Jan, 2019 Tobacco use Z72.0 [place] [address] [address] 14 Jan, 2019 Hypothyroidism (acquired) E03.9 and Type 2 diabetes mellitus without complication, without long-term current use of insulin E11.9 [place] [address] [address] Jan, Paranoid schizophrenia F20.0 [place] [address] [address] Jan, [place] [address] [address] Jan, Chronic obstructive pulmonary disease, u nspecified COPD type J44.9 [place] [address] [address] Dec, [place] [address] [address] Dec, Schizoaffective disorder, depressive typ e F25.1 [place] [address] [address] Dec, [place] [address] [address] Dec, [facility] [address] [address] Dec, Type 2 diabetes mellitus with diabetic [...] abuse Z72.0 and Encounter for immunization Z23 [facility] [address] [address] Dec, Encounter for immunization Z23 [facility] [address] [address] Dec, [facility] [address] [address] Dec, [facility] [address] [address] Dec, [facility] [address] [address] Dec, [facility] [address] [address] Dec, [facility] [address] [address] Dec, [facility] [address] [address] Nov, Paranoid schizophrenia F20.0 [facility] [address] [address] Nov, [facility] [address] [address] Nov, [facility] [address] [address] Nov, [facility] [address] [address] Nov, Encounter for comprehensive diabetic monique t examination, type 2 diabetes mellitus E11.9 and Morbid obesity E66.01 [facility] [address] [address] Nov, [facility] [address] [address] Nov, [facility] [address] [address] Nov, [facility] [address] [address] Nov, Schizoaffective disorder, depressive typ e F25.1 [facility] [address] [address] Nov, Constipation by delayed colonic transit K59.01 [facility] [address] [address] Oct, [facility] [address] [address] Oct, [facility] [address] [address] Oct, [facility] [address] [address] Oct, Chronic obstructive pulmonary disease, u nspecified COPD type J44.9 [facility] [address] [address] Oct, [facility] [address] [address] Sep, Paranoid schizophrenia F20.0 [facility] [address] [address] Sep, [facility] [address] [address] Sep, [facility] [address] [address] Sep, Encounter for immunization Z23 [facility] [address] [address] Sep, [facility] [address] [address] Sep, Closed fracture of right ankle, sequela S82.891S ; Morbid obesity E66.01 and Heat rash L74.0 [facility] [address] [address] Sep, Schizoaffective disorder, depressive typ e F25.1 [facility] [address] [address] Sep, [facility] [address] [address] Sep, [facility] [address] [address] Sep, [facility] [address] [address] Sep, [facility] [address] [address] Sep, [facility] [address] [address] Sep, [facility] [address] [address] Sep, [facility] [address] [address] Sep, [facility] [address] [address] Sep, [facility] [address] [address] August, Paranoid schizophrenia F20.0 [facility] [address] [address] August, [facility] [address] [address] August, [facility] [address] [address] August, [facility] [address] [address] August, Type 2 diabetes mellitus without complic ation, without long-term current use of insulin E11.9 ; Closed fracture of right ankle, initial encounter S82.891A ; Constipation by delayed colonic transit K59.01 ; Osteoporosis with pathological fracture, initial encounter M80.00XA ; Encounter for immunization Z23 and Morbid obesity E66.01 [facility] [address] [address] August, [facility] [address] [address] August, [facility] [address] [address] August, Acquired deformity of musculoskeletal sy stem, unspecified M95.9 [facility] [address] [address] August, Paranoid schizophrenia F20.0 [facility] [address] [place], [place] [id number] [place] [address] August, [facility] [address] [address] Jul, [facility] [address] [address] Jul, Diabetic polyneuropathy associated with type 2 diabetes mellitus E11.42 ; Paranoid schizophrenia F20.0 ; Preoperative clearance Z01.818 and Morbid obesity E66.01 [facility] [address] [address] Jul, Paranoid schizophrenia F20.0 [facility] [address] [address] Jul, [facility] [address] [address] Jul, [place] [address] [address] Jul, Cigarette nicotine dependence without co mplication F17.210 [place] [address] [address] Jul, Type 2 diabetes mellitus without complic ation, without long-term current use of insulin E11.9 and Hypothyroidism (acquired) E03.9 [place] [address] [address] Jul, Encounter for Medicare annual wellness e xam Z00.00 ; Morbid obesity due to excess calories E66.01 ; Diabetic polyneuropathy associated with type 2 diabetes mellitus E11.42 ; Chronic obstructive pulmonary disease, unspecified COPD type J44.9 ; Schizoaffective disorder, depressive type F25.1 ; Hypothyroidism (acquired) E03.9 and Morbid obesity E66.01 [place] [address] [address] Jun, Gastroesophageal reflux disease without esophagitis K21.9 [place] [address] [address] Jun, Paranoid schizophrenia F20.0 [place] [address] [address] Jun, Schizoaffective disorder, depressive typ e F25.1 [place] [address] [address] Jun, [place] [address] [address] Jun, Schizoaffective disorder, depressive typ e F25.1 [place] [address] [address] Jun, Cigarette nicotine dependence without co mplication F17.210 [place] [address] [address] Jun, Type 2 diabetes mellitus without complic ation, without long-term current use of insulin E11.9 [place] [address] [address] 15 Jun, 2018 [facility] [address] [address] Jun, [facility] [address] [address] 13 Jun, 2018 [facility] [address] [address] Jun, [facility] [address] [address] 07 Jun, 2018 [facility] [address] [address] 06 Jun, 2018 Paranoid schizophrenia F20.0 ; Type 2 di abetes mellitus without complication, without long-term current use of insulin E11.9 ; Hypothyroidism (acquired) E03.9 and Morbid obesity E66.01 [place] [address] [address] 28 May, 2018 Paranoid schizophrenia F20.0 [place] [address] [address] 20 May, 2018 Hypothyroidism (acquired) E03.9 and Dysl ipidemia E78.5 [place] [address] [address] 19 May, 2018 Cigarette nicotine dependence without co mplication F17.210 [place] [address] [address] 18 May, 2018 [place] [address] [address] 14 May, 2018 Type 2 diabetes mellitus without complic ation, without long-term current use of insulin E11.9 ; Essential hypertension I10 ; Hypothyroidism (acquired) E03.9 and Dyslipidemia E78.5 [place] [address] [address] 13 May, 2018 [facility] [address] [address] May, Schizoaffective disorder, depressive typ e F25.1 [place] [address] [address] May, Paranoid schizophrenia F20.0 [place] [address] [address] 07 May, 2018 [facility] [address] [place] [address] 07 May, 19 [place] [address] [address] May, [place] [address] [address] May, Type 2 diabetes mellitus without complic ation, without long-term current use of insulin E11.9 ; Essential hypertension I10 ; Hypothyroidism (acquired) E03.9 and Dyslipidemia E78.5 [place] [address] [address] May, [place] [address] [address] May, Acute nasopharyngitis J00 [facility] [address] [facility] [id number] [address] [place] [address] 04 May, 2018 Allergic rhinitis, unspecifi ed seasonality, unspecified trigger J30.9 [place] [address] [address] May, [facility] [address] [address] Apr, Schizoaffective disorder, depressive typ e F25.1 [place] [address] [address] Apr, [place] [address] [address] Apr, Cigarette nicotine dependence without co mplication F17.210 [place] [address] [address] Apr, [facility] [address] [address] Apr, Cigarette nicotine dependence without co mplication F17.210 [facility] [address] [address] Apr, [facility] [address] [address] Apr, Migraine without aura and without status migrainosus, not intractable G43.009 [place] [address] [address] Apr, Migraine without aura and without status migrainosus, not intractable G43.009 [place] [address] [address] Mar, Schizoaffective disorder, depressive typ e F25.1 ; BMI 45.0-49.9, adult Z68.42 and BMI 40.0-44.9, adult Z68.41 [place] [address] [address] Mar, Primary insomnia F51.01 [place] [address] [address] Mar, [place] [address] [address] Feb, Primary insomnia F51.01 [place] [address] [address] 08 Feb, 2018 [facility] [address] [address] 24 Jan, 2018 Schizoaffective disorder, depressive typ e F25.1 and BMI 45.0-49.9, adult Z68.42 [place] [address] [address] Jan, [facility] [address] [address] Jan, Type 2 diabetes mellitus with diabetic n europathic arthropathy, 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 ; Menopausal syndrome (hot flashes) N95.1 ; BMI 40.0-44.9, adult Z68.41 and Morbid obesity E66.01 [place] [address] [address] Jan, Paranoid schizophrenia F20.0 [place] [address] [address] Jan, [place] [address] [address] Jan, Schizoaffective disorder, depressive typ e F25.1 [place] [address] [address] Jan, [place] [address] [address] Jan, Chronic obstructive pulmonary disease, u nspecified COPD type J44.9 ; BMI 45.0-49.9, adult Z68.42 ; Type 2 diabetes mellitus without complication, without long-term current use of insulin E11.9 ; Hypothyroidism (acquired) E03.9 ; Encounter for immunization Z23 ; Gastroesophageal reflux disease without esophagitis K21.9 ; Primary insomnia F51.01 and Acute nasopharyngitis J00 [place] [address] [address] Dec, [place] [address] [address] Dec, Schizoaffective disorder, depressive typ e F25.1 and BMI 45.0-49.9, adult Z68.42 [place] [address] [address] Dec, [place] [address] [address] Dec, [place] [address] [address] Dec, Acute non-recurrent frontal sinusitis J0 1.10 [facility] [address] [address] 18 Dec, 2017 Acute non-recurrent frontal sinusitis J0 1.10 ; Weakness of left leg R29.898 ; At high risk for falls Z91.81 and BMI 45.0-49.9, adult Z68.42 [facility] [address] [address] Dec, [facility] [address] [address] Dec, [facility] [address] [address] Dec, Schizoaffective disorder, depressive typ e F25.1 [facility] [address] [facility] [id number] [address] [place] [address] Dec, Acute nasopharyngitis J00 [facility] [address] [address] 05 Dec, 2017 Schizoaffective disorder, depressive typ e F25.1 [place] [address] [address] Dec, [facility] [address] [address] Nov, Schizoaffective disorder, depressive typ e F25.1 and BMI 45.0-49.9, adult Z68.42 [facility] [address] [address] Nov, [facility] [address] [address] Nov, [place] [address] [address] Nov, Schizoaffective disorder, depressive typ e F25.1 [place] [address] [address] Nov, Well woman exam Z01.419 ; BMI 45.0-49.9, adult Z68.42 ; Screening breast examination Z12.31 and Dietary counseling and surveillance Z71.[address] [address] Nov, Paranoid schizophrenia F20.[address] [address] Nov, Gastroesophageal reflux disease, esophag itis presence not specified K21.9 [place] [address] [address] Oct, Paranoid schizophrenia F20.0 [facility] [id number] [place] [address] Oct, Chronic pain syndrome G89.4 and Schizoaffective disorder, depressive type F25.[address] [address] Oct, Chronic pain syndrome G89.4 and Schizoaf fective disorder, depressive type F25.[address] [address] 16 Oct, 2017 Type 2 diabetes mellitus without complic ation, without long-term current use of insulin E11.9 [place] [address] [address] 12 Oct, 2017 Essential hypertension I10 and DM neuro manif type II E11.[address] [address] Oct, [address] [address] Oct, Schizoaffective disorder, depressive typ e F25.1 and BMI 45.0-49.9, adult Z68.[address] [address] Oct, [address] [address] Oct, Paranoid schizophrenia F20.0 [facility] [address] [address] Oct, Type 2 diabetes mellitus with diabetic n europathic arthropathy, 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 ; Essential hypertension I10 ; Hypothyroidism (acquired) E03.9 ; Chronic obstructive pulmonary disease, unspecified COPD type J44.9 and Diabetic polyneuropathy associated with type 2 diabetes mellitus E11.42 [facility] [address] [address] Sep, Paranoid schizophrenia F20.0 [place] [address] [address] Sep, Paranoid schizophrenia F20.0 and BMI 45. 0-49.9, adult Z68.42 [place] [address] [address] Sep, Schizoaffective disorder, depressive typ e F25.1 [place] [address] [address] Sep, [facility] [address] [address] Sep, Paranoid schizophrenia F20.0 [facility] [address] [address] Sep, [facility] [address] [address] Sep, Hypothyroidism (acquired) E03.9 [facility] [address] [address] Sep, [facility] [address] [address] August, Schizoaffective disorder, depressive typ e F25.1 [facility] [address] [address] August, [facility] [address] [address] August, [place] [address] [address] August, [place] [address] [address] August, Paranoid schizophrenia F20.0 [place] [address] [address] August, History of lupus Z87.39 and Chronic pain syndrome G89.4 [place] [address] [address] August, [facility] [address] [place] [id number] [place] [address] August, Seasonal allergic rhinitis, unspecified trigger J30.2 and BMI 45.0-49.9, adult Z68.42 [place] [address] [address] Jul, Schizoaffective disorder, depressive typ e F25.1 [place] [address] [address] Jul, [place] [address] [address] Jul, Hypothyroidism (acquired) E03.9 [place] [address] [address] Jul, Chronic obstructive pulmonary disease, u nspecified COPD type J44.9 and Type 2 diabetes mellitus without complication, without long-term current use of insulin E11.9 [place] [address] [address] Jul, Paranoid schizophrenia F20.0 [place] [address] [address] Jun, Hypothyroidism (acquired) E03.9 and Seas onal allergic rhinitis due to pollen J30.1 [facility] [address] [place] [id number] [address] [address] Jun, Shortness of breath at rest R06.02 ; COPD exacerbation J44.1 and BMI 45.0-49.9, adult Z68.42 [facility] [address] [place] [id number] Jun, [facility] [address] [place] [id number] Jun, Paranoid schizophrenia F20.0 ; Depressio n with anxiety F41.8 and BMI 45.0-49.9, adult Z68.42 [facility] [address] [place] [id number] Jun, Schizoaffective disorder, depressive typ e F25.1 [facility] [address] [place] [id number] Jun, Dental caries K02.9 [place] [id number] Jun, Paranoid schizophrenia F20.0 [place] [address] [address] [place] [id number] May, Migraine without aura and without status migrainosus, not intractable G43.009 ; DM neuro manif type II E11.49 and Type 2 diabetes mellitus without complication, without long-term current use of insulin E11.9 [place] [address] [address] May, Migraine without aura and without status migrainosus, not intractable G43.009 [place] [address] [address] May, Depression with anxiety F41.8 [facility] [address] [id number] May, [place] [address] [address] [place] [id number] May, [facility] [address] [place] [id number] May, [place] [address] [address] 09 May, 2017 Hypothyroidism (acquired) E03.9 [facility] [address] [address] 08 May, 2017 Paranoid schizophrenia F20.0 [facility] [address] [address] 08 May, 2017 Type 2 diabetes mellitus [...] N32.81 and Controlled substance agreement signed Z79.899 [place] [address] [address] 02 May, 2017 Controlled substance agreement signed Z7 9.899 [place] [address] [address] Apr, [facility] [address] [id number] Apr, Dental examination Z01.20 [place] [address] [address] Apr, Paranoid schizophrenia F20.0 [place] [id number] [address] Apr, Hypertension, unspecified type I10 [facility] [address] [address] Apr, Paranoid schizophrenia F20.0 [place] [address] [address] Apr, [place] [id number] [address] Apr, Tobacco abuse Z72.0 [facility] [address] [address] Apr, [facility] [address] [address] Mar, [facility] [address] [address] Mar, Paranoid schizophrenia F20.0 and BMI 45. 0-49.9, adult Z68.42 [place] [address] [address] Mar, Schizoaffective disorder, depressive typ e F25.1 [place] [address] [address] 14 Mar, 2017 [place] [address] [address] Mar, Hypothyroidism, unspecified type E03.9 [place] [address] [address] Mar, Schizoaffective disorder, depressive typ e F25.1 [facility] [address] [facility] [id number] [address] [place] [address] Feb, Gastroenteritis K52.9 and BM I 45.0-49.9, adult Z68.42 [place] [address] [address] Feb, [facility] [address] [address] Feb, [place] [address] [address] Feb, [place] [address] [address] 16 Feb, 2017 [facility] [address] [address] Feb, Paranoid schizophrenia F20.0 [place] [address] [address] Feb, Gastroesophageal reflux disease without esophagitis K21.9 ; Other seasonal allergic rhinitis J30.2 ; Other allergic rhinitis J30.89 ; Tobacco abuse Z72.0 and BMI 40.0-44.9, adult Z68.[address] [address] Feb, Onychomycosis B35.1 ; Callus of foot L84 and DM neuro manif type II E11.[address] [address] Jan, Chronic allergic rhinitis J30.9 [place] [address] [address] Jan, [address] [address] Jan, Schizoaffective disorder, depressive typ e F25.1 [place] [address] [address] Jan, [facility] [address] [place] [address] Jan, Sore throat J02.9 and Season al allergic rhinitis due to other allergic trigger J30.[address] [address] Jan, [address] [address] Jan, [facility] [address] [place], [place] [id number] [address] [place] [address] Jan, Chronic allergic rhinitis J3 0.[address] [address] Dec, Paranoid schizophrenia F20.0 ; Primary i nsomnia F51.01 and Schizoaffective disorder, depressive type F25.1 [place] [address] [address] 21 Dec, 2016 Chronic pain syndrome G89.4 ; Cervicalgi a of iefmquyf-lrkjtvm-sbukv region M54.2 ; Menopausal syndrome (hot flashes) N95.1 and Encounter for immunization Z23 [place] [address] [address] 14 Dec, 2016 [place] [address] [address] 13 Dec, 2016 [place] [address] [address] 08 Dec, 2016 Paranoid schizophrenia F20.0 [place] [address] [address] Dec, Schizoaffective disorder, depressive typ e F25.[address] [address] Nov, Hypothyroidism, unspecified type E03.9 [facility] [address] [facility] [id number] [place] [address] Nov, Acute seasonal allergic rhin itis due to other allergen J30.89 [place] [address] [address] Nov, [address] [address] Nov, Hypothyroidism, unspecified type E03.9 a nd Other elevated white blood cell (WBC) count D72.828 [place] [address] [address] Nov, Schizoaffective disorder, depressive typ e F25.1 [place] [address] [address] Nov, Paranoid schizophrenia F20.0 [place] [address] [address] Nov, Type 2 diabetes mellitus without complic ation, without long-term current use of insulin E11.9 ; Morbid obesity due to excess calories E66.01 and Chronic pain syndrome G89.4 [place] [address] [address] Oct, Paranoid schizophrenia F20.0 [place] [address] [address] Oct, [place] [address] [address] Oct, Schizoaffective disorder, depressive typ e F25.1 [place] [address] [address] Oct, Hypothyroidism, unspecified type E03.9 a nd Other elevated white blood cell (WBC) count D72.828 [place] [address] [address] Oct, Morbid obesity due to excess calories E6 6.01 ; Chronic obstructive pulmonary disease, unspecified COPD type J44.9 ; History of lupus Z87.39 ; Hypothyroidism, unspecified type E03.9 ; Gastroesophageal reflux disease without esophagitis K21.9 ; Primary insomnia F51.01 and Chronic pain syndrome G89.4 [place] [address] [address] Sep, [place] [address] [address] Sep, [place] [address] [address] Sep, [place] [address] [address] Sep, Paranoid schizophrenia F20.0 [place] [address] [address] Sep, [place] [address] [address] Sep, Paranoid schizophrenia F20.0 [place] [address] [place] [address] Sep, [place] [address] [address] August, Paranoid schizophrenia F20.0 [place] [address] [address] Jul, [place] [address] [address] Jul, Type 2 diabetes mellitus without complic ation, without long-term current use of insulin E11.9 ; Morbid obesity due to excess calories E66.01 ; Depression with anxiety F41.8 ; Hypothyroidism, unspecified type E03.9 ; Seasonal allergic rhinitis due to other allergic trigger J30.89 ; Pain, dental K08.89 and Gastroesophageal reflux disease without esophagitis K21.9 [facility] [address] [id number] [place] [id number] Jul, Dental examination Z01.20 [place] [address] [place] [id number] [place] [address] Jul, Paranoid schizophrenia F20.0 [place] [address] [address] 13 Jun, 2016 Paranoid schizophrenia F20.0 and Depress ion with anxiety F41.8 [place] [address] [address] Jun, Paranoid schizophrenia F20.0 and Depress ion with anxiety F41.8 [place] [address] [address] Jun, [place] [address] [address] Jun, [facility] [place] [address] [address] [place] [id number] [address] [place] [address] Jun, Seasonal allergic rhinitis d ue to other allergic trigger J30.89 [facility] [address] [place] [id number] [address] [place] [address] May, Sore throat J02.9 ; Other vi ral agents as the cause of diseases classified elsewhere B97.89 and Acute upper respiratory infection, unspecified J06.[address] [address] 08 May, 2016 Paranoid schizophrenia F20.0 and Depress ion with anxiety F41.[address] [address] Apr, Other seasonal allergic rhinitis J30.[address] [address] Apr, Paranoid schizophrenia F20.0 and Depress ion with anxiety F41.8 [facility] [address] [address] Apr, Bronchitis J40 and Sore thro at J02.[address] [address] Apr, Type 2 diabetes mellitus without complic ation, without long-term current use of insulin E11.9 [facility] [address] [address] Apr, Bronchitis J40 [address] [address] Apr, [address] [address] Apr, [address] [address] Mar, Type 2 diabetes mellitus without complic [...] R60.9 and Other seasonal allergic rhinitis J30.2 [place] [address] [address] 09 Mar, 2016 Paranoid schizophrenia F20.0 and Depress ion with anxiety F41.8 [place] [address] [address] 30 Feb, 2016 [facility] [address] [address] Feb, [place] [address] [address] Feb, [place] [address] [address] Feb, [place] [address] [address] 14 Feb, 2016 Type 2 diabetes mellitus without complic ation, without long-term current use of insulin E11.9 ; AIRAS on CPAP G47.33 and Preoperative evaluation to rule out surgical contraindication Z01.818 [place] [address] [address] 09 Feb, 2016 Paranoid schizophrenia F20.0 and Depress ion with anxiety F41.8 [place] [address] [address] 18 Jan, 2016 [place] [address] [address] 18 Jan, 2016 Paranoid schizophrenia F20.0 and Depress ion with anxiety F41.8 [place] [address] [address] 17 Jan, 2016 [place] [address] [address] 14 Jan, 2016 Muscle strain T14.8 [place] [address] [address] 10 Jan, 2016 Paranoid schizophrenia F20.0 [place] [address] [address] 07 Jan, 2016 [place] [address] [address] Jan, Paranoid schizophrenia F20.0 and Depress ion with anxiety F41.8 [facility] [address] [address] Jan, [facility] [address] [address] Jan, [facility] [address] [address] Dec, [facility] [address] [address] Dec, Paranoid schizophrenia F20.0 [facility] [address] [address] 16 Dec, 2015 Paranoid schizophrenia F20.0 and Depress ion with anxiety F41.8 [place] [address] [address] Nov, [facility] [address] [address] Nov, Paranoid schizophrenia F20.0 [place] [address] [address] Nov, Paranoid schizophrenia F20.0 and Depress ion with anxiety F41.8 [place] [address] [address] Nov, Type 2 diabetes mellitus without complic ation, without long-term current use of insulin E11.9 ; Paranoid schizophrenia F20.0 ; Chronic obstructive pulmonary disease, unspecified COPD type J44.9 ; Morbid obesity due to excess calories E66.01 and Parkinsonian tremor G20 [facility] [address] [address] Nov, [facility] [address] [address] Oct, Paranoid schizophrenia F20.0 [place] [address] [address] Oct, Paranoid schizophrenia F20.0 [place] [address] [address] Oct, Paranoid schizophrenia F20.0 and Depress ion with anxiety F41.8 [place] [address] [address] Oct, [place] [address] [address] Oct, Paranoid schizophrenia F20.0 and Depress ion with anxiety F41.8 [place] [address] [address] Oct, Nasal sore J34.89 [place] [address] [address] Oct, Type 2 diabetes mellitus without complic ation, without long-term current use of insulin E11.9 ; Depression with anxiety F41.8 ; Hypothyroidism, unspecified type E03.9 and History of lupus Z87.39 [place] [address] [address] Oct, [place] [address] [address] Oct, Type 2 diabetes mellitus without complic [...] edema R60.9 and History of lupus Z87.39 [place] [address] [address] Feb, [place] [address] [place] [id number] 14 Jan, 2015 [facility] [address] [id number] [place] [address] Jan, [facility] [address] [id number] [place] [address] Jan, [facility] [address] [id number] [place] [address] Dec, [facility] [address] [id number] [place] [address] Nov, [facility] [address] [id number] [place] [address] Nov, [facility] [address] [id number] [place] [address] Oct, [facility] [address] [place] [id number] [place] [address] Oct, [facility] [address] [place] [id number] [place] [address] Oct, [facility] [address] [id number] [place] [address] Sep, Allergic rhinitis 477.9 [facility] [address] [place] [id number] [place] [address] Sep, Rhinitis, allergic 477.9 [facility] [address] [place] [id number] [place] [address] Sep, Rhinitis, allergic 477.9 [facility] [address] [id number] [place] [address] Sep, [facility] [place] [facility] [address] [id number] [place] [address] August, [facility] [address] [place] [id number] [place] [address] August, [facility] [place] [facility] [address] [place] [id number] [place] [address] August, [facility] [address] [id number] [place] [address] 28 Jul, 2014 [facility] [place] [facility] [address] [facility] [id number] [facility] [place] [address] 14 Jul, 2014 [facility] [place] [facility] [address] [facility] [id number] [place] [address] 13 Jul, 2014 [facility] [place] [facility] [address] [id number] [place] [address] 16 Jun, 2014 [facility] [place] [facility] [address] [id number] [place] [address] 16 Jun, 2014 [facility] [place] [facility] [address] [facility] [id number] [place] [address] Jun, [facility] [place] [facility] [address] [id number] [place] [address] Jun, [facility] [place] [facility] [address] [id number] [place] [address] Jun, [facility] [place] [facility] [address] [id number] [place] [address] Jun, [facility] [place] [facility] [address] [id number] [place] [address] Jun, [facility] [place] [facility] [address] [id number] [place] [address] Jun, [facility] [place] [facility] [address] [id number] [place] [address] May, [facility] [place] [facility] [address] [id number] [place] [address] May, 2014 [facility] [place] [facility] [address] [facility] [id number] [place] [address] May, [facility] [place] [facility] [address] [id number] [place] [address] May, 2014 [facility] [place] [facility] [address] [id number] [place] [address] Apr, [facility] [place] [facility] [address] [id number] [place] [address] Mar, [facility] [place] [facility] [address] [id number] [place] [address] Mar, [facility] [place] [facility] [address] [id number] [place] [address] Mar, [facility] [place] [facility] [address] [id number] [place] [address] Mar, [facility] [place] [facility] [address] [id number] [place] [address] Mar, [facility] [place] [facility] [address] [id number] [place] [address] Mar, [facility] [place] [facility] [address] [id number] [place] [address] Mar, [facility] [place] [facility] [address] [id number] [place] [address] Mar, [facility] [place] [facility] [address] [id number] [place] [address] Mar, [facility] [place] [facility] [address] [id number] [place] [address] Feb, [facility] [place] [facility] [address] [id number] [place] [address] Feb, [facility] [place] [facility] [address] [id number] [place] [address] Feb, [facility] [place] [facility] [address] [id number] [place] [address] Feb, [facility] [place] [facility] [address] [id number] [place] [address] Feb, [facility] [place] [facility] [address] [id number] [place] [address] Feb, [facility] [place] [facility] [address] [id number] [place] [address] Feb, [facility] [place] [facility] [address] [id number] [place] [address] Feb, [facility] [place] [facility] [address] [id number] [place] [address] 23 Jan, 2014 [facility] [place] [facility] [address] [facility] [id number] [place] [address] 23 Jan, 2014 [facility] [place] [facility] [address] [facility] [id number] [place] [address] 16 Jan, 2014 [facility] [place] [facility] [address] [facility] [id number] [place] [address] 16 Jan, 2014 [facility] [place] [facility] [address] [facility] [id number] [place] [address] 15 Jan, 2014 [facility] [place] [facility] [address] [facility] [id number] [place] [address] 15 Jan, 2014 [facility] [place] [facility] [address] [facility] [id number] [place] [address] 14 Jan, 2014 [facility] [place] [facility] [address] [id number] [place] [address] 14 Jan, 2014 [facility] [place] [facility] [address] [id number] [place] [address] 14 Jan, 2014 [facility] [place] [facility] [address] [facility] [id number] [place] [address] 14 Jan, 2014 [facility] [place] [facility] [address] [id number] [place] [address] 18 Dec, 2013 [facility] [place] [facility] [address] [facility] [id number] [place] [address] 18 Dec, 2013 [facility] [place] [facility] [address] [id number] [place] [address] 10 Dec, 2013 [facility] [place] [facility] [address] [facility] [id number] [place] [address] 10 Dec, 2013 [facility] [place] [facility] [address] [facility] [id number] [place] [address] Nov, [facility] [place] [facility] [address] [facility] [id number] [place] [address] Nov, [facility] [place] [facility] [address] [id number] [place] [address] Nov, [facility] [place] [facility] [address] [facility] [id number] [place] [address] Nov, [facility] [place] [facility] [address] [id number] [place] [address] Nov, [facility] [place] [facility] [address] [facility] [id number] [place] [address] Oct, [facility] [place] [facility] [address] [id number] [place] [address] Oct, [facility] [place] [facility] [address] [id number] [place] [address] Oct, [facility] [place] [facility] [address] [facility] [id number] [place] [address] Oct, [facility] [place] [facility] [address] [id number] [place] [address] Sep, [facility] [place] [facility] [address] [id number] [place] [address] Sep, [facility] [place] [facility] [address] [id number] [place] [address] Sep, [facility] [address] [id number] [place] [address] Sep, [facility] [address] [id number] [place] [address] Sep, [facility] [address] [id number] [place] [address] Sep, [facility] [address] [id number] [place] [address] Sep, [facility] [address] [id number] [place] [address] Sep, [facility] [address] [id number] [place] [address] August, [facility] [address] [id number] [place] [address] August, [facility] [address] [id number] [place] [address] August, [facility] [address] [id number] [place] [address] August, [facility] [address] [id number] [place] [address] August, [facility] [address] [id number] [place] [address] August, [facility] [address] [id number] [place] [address] August, [facility] [address] [id number] [place] [address] Jul, [facility] [address] [id number] [place] [address] Jul, [facility] [address] [id number] [place] [address] Jul, [facility] [address] [id number] [place] [address] Jul, [facility] [address] [id number] [place] [address] Jul, [facility] [address] [id number] [place] [address] Jul, [facility] [address] [id number] [place] [address] Jul, [facility] [address] [id number] [place] [address] Jul, [facility] [address] [id number] [place] [address] Jul, [facility] [address] [id number] [place] [address] Jul, [facility] [address] [id number] [place] [address] Jul, [facility] [address] [id number] [place] [address] Jul, [facility] [address] [id number] [place] [address] Jun, [facility] [address] [id number] [place] [address] Jun, [facility] [address] [id number] [place] [address] Jun, [facility] [address] [id number] [place] [address] Jun, [facility] [address] [id number] [place] [address] Jun, [facility] [address] [id number] [place] [address] May, [facility] [address] [id number] [place] [address] May, [facility] [address] [id number] [place] [address] May, [facility] [address] [id number] [place] [address] May, [facility] [address] [id number] [place] [address] May, [facility] [address] [id number] [place] [address] May, [facility] [address] [id number] [place] [address] May, [facility] [address] [id number] [place] [address] May, [facility] [address] [id number] [place] [address] Mar, [facility] [address] [id number] [place] [address] Mar, [facility] [address] [id number] [place] [address] Mar, [facility] [address] [id number] [place] [address] Mar, [facility] [address] [id number] [place] [address] Mar, [facility] [address] [id number] [place] [address] Mar, [facility] [address] [id number] [place] [address] Feb, [facility] [address] [id number] [place] [address] Feb, [facility] [address] [id number] [place] [address] Jan, [facility] [address] [id number] [place] [address] Jan, [facility] [address] [id number] [place] [address] Jan, [facility] [address] [id number] [place] [address] Jan, [facility] [address] [id number] [place] [address] Jan, [facility] [address] [id number] [place] [address] Jan, [facility] [address] [id number] [place] [address] Jan, [facility] [address] [id number] [place] [address] Jan, [facility] [address] [id number] [place] [address] 08 Jan, 2013 [facility] [address] [id number] [place] [address] Jan, [facility] [address] [id number] [place] [address] 16 Dec, 2012 [facility] [address] [id number] [place] [address] Nov, [facility] [address] [id number] [place] [address] Nov, [facility] [id number] [place] [address] Nov, [facility] [id number] [place] [address] Oct, [facility] [id number] [place] [address] Oct, [facility] [id number] [place] [address] August, [facility] [id number] [place] [address] Apr, [facility] [address] [address] Apr, [facility] [id number] [place] [address] Feb, [facility] [id number] [place] [address] Feb, [facility] [id number] [place] [address] Dec, [facility] [address] [address] Dec, [facility] [id number] [place] [address] Oct, [facility] [id number] [place] [address] Oct, [facility] [id number] [place] [address] Oct, [facility] [id number] [place] [address] Jul, IMMUNIZATIONS No Known Immunizations SOCIAL HISTORY [...] hospitalizations for psychosis/mental illness, last one in [facility] 4 years ago Hospitalization History broken ankle 08/2018
--- OUTSIDE RECORDS SUMMARY | 2019-07-07 04:00 | XMS REPORT ---
Author Author Alayna ARROYO Organization [facility] Address [address] [place] [address] Care Team Providers Care Time Checker Name Role Phone CRUZ ELVER Unavailable PROBLEMS Type Condition ICD9-CM Code BUE71-NV Code Onset Dates Condition S tatus SNOMED Code Problem Type 2 diabetes mellitus wit hout complication, without long-term current use of insulin E11.9 Active 283383840 Problem Gastroesophageal reflux disease without esophagitis K21.9 Active 869746962 Problem History of lupus Z87.39 Active 312 727921 Problem Schizoaffective disorder, depressive type F25.1 Active 58415415 Problem Seasonal allergic rhinitis due to other allergic trigger J30.89 Active 977475587 Problem DM neuro manif type II E11.49 Active 26439008 Problem Primary insomnia F51.01 Active 397 2004 Problem Diabetic polyneuropathy associated with type 2 d iabetes mellitus E11.42 Active 789136278 Problem Chronic pain syndrome G89.4 Active 846038942 Problem 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, 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 Active 975319895 Problem Morbid obesity due to excess calories E66.01 Active 152208914 Problem OAB (overactive bladder) N32.81 Activ e 683543639 Problem Paranoid schizophrenia F20.0 Active 16958066 Problem Gastroesophageal reflux disease, esophagitis pre sence not specified K21.9 Active 282166050 Problem Tobacco abuse Z72.0 Active 260025 000 Problem Dyslipidemia E78.5 Active 3367470 07 Problem Migraine without aura and without status migrain osus, not intractable G43.009 Active 960350387 Problem Hypothyroidism (acquired) E03.9 Acti ve 677169234 Problem Essential hypertension I10 Active 97949011 Problem Seasonal allergic rhinitis due to pollen J30.1 Active 73653441 Problem Chronic obstructive pulmonary disease, unspecified COPD ty pe J44.9 Active 60556331 Problem COPD exacerbation J44.1 Active 19 5816443 Problem Depression with anxiety F41.8 Active 530219806 Problem Cigarette nicotine dependence without complication F17.210 Active 22992017 Problem Allergic rhinitis, unspecified seasonality, unspecifie d trigger J30.9 Active 38483404 Problem Constipation by delayed colonic transit K59.01 Active 84358090 Problem Constipation, unspecified constipation type K59.00 Active 02568867 Problem Other allergic rhinitis J30.89 Active 006767021 Problem Constipation, unspecified constipation type K59.00 Active 14650158 Problem Menopausal syndrome (hot flashes) N95.1 Active 834315020 Problem Other seasonal allergic rhinitis J30.2 Active 904957854 Problem BMI 31.0-31.9,adult Z68.31 Active 865594145 Problem Vaginal dryness, menopausal N95.1 Ac tive 70118974 Problem Diverticulitis K57.92 Active 26638 6006 Problem BMI 40.0-44.9, adult Z68.41 Active 371502554 ALLERGIES No Information ENCOUNTERS Encounter Location Date Diagnosis [place] [address] [address] Jun, [place] [address] [address] Jun, [place] [address] [address] May, [place] [address] [address] May, Paranoid schizophrenia F20.0 [place] [address] [address] 13 May, 2019 [place] [address] [address] May, [place] [address] [address] May, [place] [address] [address] May, Well woman exam with routine gynecologic al exam Z01.419 ; Screening for STD (sexually transmitted disease) Z11.3 ; Screening for cervical cancer Z12.4 ; Diabetic polyneuropathy associated with type 2 diabetes mellitus E11.42 and Morbid obesity due to excess calories E66.01 [facility] [address] [address] May, [facility] [address] [address] Apr, [place] [address] [address] Apr, Paranoid schizophrenia F20.0 [place] [address] [address] Apr, [place] [address] [address] Apr, [facility] [place] [address] [address] [facility] [id number] [address] [place] [address] Apr, Sore throat J02.9 and Non-re current acute suppurative otitis media of both ears without spontaneous rupture of tympanic membranes H66.003 [place] [address] [address] Apr, [place] [address] [address] Apr, [place] [address] [address] Apr, Schizoaffective disorder, depressive typ e F25.1 [place] [address] [address] Mar, Schizoaffective disorder, depressive typ e F25.1 [place] [address] [address] Mar, [facility] [address] [facility] [id number] [address] [place] [address] Mar, Acute nasopharyngitis J00 [place] [address] [address] Mar, [place] [id number] [address] Mar, [facility] [address] [id number] Mar, Caries K02.9 [facility] [address] [id number] Feb, Dental examination Z01.20 and Caries K02 .9 [place] [address] [address] Feb, Constipation, unspecified constipation t ype K59.00 ; Acute hemorrhoid K64.9 ; Tobacco abuse Z72.0 ; BMI 40.0-44.9, adult Z68.41 and Dyslipidemia E78.5 [place] [address] [address] Feb, [address] [address] Feb, [place] [address] [address] Feb, Constipation, unspecified constipation t ype K59.00 ; Left lower quadrant abdominal pain R10.32 ; Hypothyroidism (acquired) E03.9 ; Tobacco abuse Z72.0 and BMI 40.0-44.9, adult Z68.41 [place] [address] [address] Feb, [address] [address] Feb, Chronic obstructive pulmonary disease, u nspecified COPD type J44.9 [place] [address] [address] Jan, [place] [address] [address] Jan, Paranoid schizophrenia F20.0 [place] [address] [address] Jan, [address] [id number] [place] [address] 29 Jan, 2019 [place] [address] [address] 28 Jan, 2019 Diverticulitis K57.92 and Diarrhea, unsp ecified type R19.7 [place] [address] [address] 17 Jan, 2019 Paranoid schizophrenia F20.0 and Tobacco abuse Z72.0 [place] [address] [address] 15 Jan, 2019 Paranoid schizophrenia F20.0 [place] [address] [address] 14 Jan, 2019 Tobacco use Z72.0 [place] [address] [address] 14 Jan, 2019 Hypothyroidism (acquired) E03.9 and Type 2 diabetes mellitus without complication, without long-term current use of insulin E11.9 [place] [address] [address] 10 Jan, 2019 Paranoid schizophrenia F20.0 [place] [address] [address] 08 Jan, 2019 [place] [address] [address] 04 Jan, 2019 Chronic obstructive pulmonary disease, u nspecified COPD type J44.9 [place] [address] [address] 30 Dec, 2018 [place] [address] [address] Dec, Schizoaffective disorder, depressive typ e F25.1 [place] [address] [address] Dec, [place] [address] [address] Dec, [place] [address] [address] Dec, Type 2 diabetes mellitus with diabetic [...] abuse Z72.0 and Encounter for immunization Z23 [place] [address] [address] Dec, Encounter for immunization Z23 [place] [address] [address] Dec, [place] [address] [address] Dec, [place] [address] [address] Dec, [place] [address] [address] Dec, [place] [address] [address] Dec, [place] [address] [address] Dec, [place] [address] [address] Nov, Paranoid schizophrenia F20.0 [facility] [address] [address] Nov, [facility] [address] [address] Nov, [facility] [address] [address] Nov, [facility] [address] [address] Nov, Encounter for comprehensive diabetic monique t examination, type 2 diabetes mellitus E11.9 and Morbid obesity E66.01 [facility] [address] [address] Nov, [facility] [address] [address] Nov, [facility] [address] [address] Nov, [facility] [address] [address] Nov, Schizoaffective disorder, depressive typ e F25.1 [facility] [address] [address] Nov, Constipation by delayed colonic transit K59.01 [facility] [address] [address] Oct, [facility] [address] [address] Oct, [facility] [address] [address] Oct, [facility] [address] [address] Oct, Chronic obstructive pulmonary disease, u nspecified COPD type J44.9 [facility] [address] [address] Oct, [facility] [address] [address] Sep, Paranoid schizophrenia F20.0 [facility] [address] [address] Sep, [facility] [address] [address] Sep, [facility] [address] [address] Sep, Encounter for immunization Z23 [facility] [address] [address] Sep, [facility] [address] [address] Sep, Closed fracture of right ankle, sequela S82.891S ; Morbid obesity E66.01 and Heat rash L74.0 [facility] [address] [address] Sep, Schizoaffective disorder, depressive typ e F25.1 [facility] [address] [address] Sep, [facility] [address] [address] Sep, [facility] [address] [address] Sep, [facility] [address] [address] Sep, [facility] [address] [address] Sep, [facility] [address] [address] Sep, [facility] [address] [address] Sep, [facility] [address] [address] Sep, [facility] [address] [address] Sep, [facility] [address] [address] August, Paranoid schizophrenia F20.0 [facility] [address] [address] August, [facility] [address] [address] August, [facility] [address] [address] August, [facility] [address] [address] August, Type 2 diabetes mellitus without complic ation, without long-term current use of insulin E11.9 ; Closed fracture of right ankle, initial encounter S82.891A ; Constipation by delayed colonic transit K59.01 ; Osteoporosis with pathological fracture, initial encounter M80.00XA ; Encounter for immunization Z23 and Morbid obesity E66.01 [facility] [address] [address] August, [place] [address] [address] August, [place] [address] [address] August, Acquired deformity of musculoskeletal sy stem, unspecified M95.9 [place] [address] [address] August, Paranoid schizophrenia F20.0 [facility] [address] [place] [id number] [place] [address] August, [place] [address] [address] Jul, [place] [address] [address] Jul, Diabetic polyneuropathy associated with type 2 diabetes mellitus E11.42 ; Paranoid schizophrenia F20.0 ; Preoperative clearance Z01.818 and Morbid obesity E66.01 [facility] [address] [address] Jul, Paranoid schizophrenia F20.0 [place] [address] [address] Jul, [facility] [address] [address] Jul, [facility] [address] [address] Jul, Cigarette nicotine dependence without co mplication F17.210 [place] [address] [address] Jul, Type 2 diabetes mellitus without complic ation, without long-term current use of insulin E11.9 and Hypothyroidism (acquired) E03.9 [place] [address] [address] Jul, Encounter for Medicare annual wellness e xam Z00.00 ; Morbid obesity due to excess calories E66.01 ; Diabetic polyneuropathy associated with type 2 diabetes mellitus E11.42 ; Chronic obstructive pulmonary disease, unspecified COPD type J44.9 ; Schizoaffective disorder, depressive type F25.1 ; Hypothyroidism (acquired) E03.9 and Morbid obesity E66.01 [place] [address] [address] Jun, Gastroesophageal reflux disease without esophagitis K21.9 [place] [address] [address] Jun, Paranoid schizophrenia F20.0 [place] [address] [address] Jun, Schizoaffective disorder, depressive typ e F25.1 [place] [address] [address] Jun, [place] [address] [address] Jun, Schizoaffective disorder, depressive typ e F25.1 [place] [address] [address] Jun, Cigarette nicotine dependence without co mplication F17.210 [place] [address] [address] Jun, Type 2 diabetes mellitus without complic ation, without long-term current use of insulin E11.9 [place] [address] [address] 15 Jun, 2018 [place] [address] [address] Jun, [facility] [address] [address] Jun, [facility] [address] [address] Jun, [place] [address] [address] Jun, [place] [address] [address] Jun, Paranoid schizophrenia F20.0 ; Type 2 di abetes mellitus without complication, without long-term current use of insulin E11.9 ; Hypothyroidism (acquired) E03.9 and Morbid obesity E66.01 [place] [address] [address] 28 May, 2018 Paranoid schizophrenia F20.0 [place] [address] [address] 20 May, 2018 Hypothyroidism (acquired) E03.9 and Dysl ipidemia E78.5 [place] [address] [address] 19 May, 2018 Cigarette nicotine dependence without co mplication F17.210 [place] [address] [address] 18 May, 2018 [place] [address] [address] 14 May, 2018 Type 2 diabetes mellitus without complic ation, without long-term current use of insulin E11.9 ; Essential hypertension I10 ; Hypothyroidism (acquired) E03.9 and Dyslipidemia E78.5 [place] [address] [address] 13 May, 2018 [place] [address] [address] 08 May, 2018 Schizoaffective disorder, depressive typ e F25.1 [facility] [address] [address] 08 May, 2018 Paranoid schizophrenia F20.0 [place] [address] [address] 07 May, 2018 [facility] [address] [place] [address] 07 May, 20 19 [place] [address] [address] May, [place] [address] [address] May, Type 2 diabetes mellitus without complic ation, without long-term current use of insulin E11.9 ; Essential hypertension I10 ; Hypothyroidism (acquired) E03.9 and Dyslipidemia E78.5 [place] [address] [address] May, [place] [address] [address] May, Acute nasopharyngitis J00 [facility] [address] [facility] [id number] [address] [place] [address] 04 May, 2018 Allergic rhinitis, unspecifi ed seasonality, unspecified trigger J30.9 [place] [address] [address] May, [place] [address] [address] Apr, Schizoaffective disorder, depressive typ e F25.1 [place] [address] [address] Apr, [place] [address] [address] Apr, Cigarette nicotine dependence without co mplication F17.210 [place] [address] [address] Apr, [place] [address] [address] Apr, Cigarette nicotine dependence without co mplication F17.210 [place] [address] [address] Apr, [place] [address] [address] Apr, Migraine without aura and without status migrainosus, not intractable G43.009 [place] [address] [address] Apr, Migraine without aura and without status migrainosus, not intractable G43.009 [place] [address] [address] Mar, Schizoaffective disorder, depressive typ e F25.1 ; BMI 45.0-49.9, adult Z68.42 and BMI 40.0-44.9, adult Z68.41 [place] [address] [address] Mar, Primary insomnia F51.01 [place] [address] [address] 10 Mar, 2018 [place] [address] [address] 14 Feb, 2018 Primary insomnia F51.01 [place] [address] [address] Feb, [place] [address] [address] Jan, Schizoaffective disorder, depressive typ e F25.1 and BMI 45.0-49.9, adult Z68.42 [place] [address] [address] Jan, [place] [address] [address] Jan, Type 2 diabetes mellitus with diabetic n europathic arthropathy, 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 ; Menopausal syndrome (hot flashes) N95.1 ; BMI 40.0-44.9, adult Z68.41 and Morbid obesity E66.01 [place] [address] [address] Jan, Paranoid schizophrenia F20.0 [place] [address] [address] Jan, [place] [address] [address] Jan, Schizoaffective disorder, depressive typ e F25.1 [place] [address] [address] Jan, [place] [address] [address] Jan, Chronic obstructive pulmonary disease, u nspecified COPD type J44.9 ; BMI 45.0-49.9, adult Z68.42 ; Type 2 diabetes mellitus without complication, without long-term current use of insulin E11.9 ; Hypothyroidism (acquired) E03.9 ; Encounter for immunization Z23 ; Gastroesophageal reflux disease without esophagitis K21.9 ; Primary insomnia F51.01 and Acute nasopharyngitis J00 [place] [address] [address] Dec, [place] [address] [address] Dec, Schizoaffective disorder, depressive typ e F25.1 and BMI 45.0-49.9, adult Z68.42 [place] [address] [address] Dec, [place] [address] [address] Dec, [place] [address] [address] Dec, Acute non-recurrent frontal sinusitis J0 1.10 [facility] [address] [address] 18 Dec, 2017 Acute non-recurrent frontal sinusitis J0 1.10 ; Weakness of left leg R29.898 ; At high risk for falls Z91.81 and BMI 45.0-49.9, adult Z68.42 [facility] [address] [address] 17 Dec, 2017 [facility] [address] [address] 17 Dec, 2017 [place] [address] [address] Dec, Schizoaffective disorder, depressive typ e F25.1 [facility] [address] [facility] [id number] [address] [place] [address] Dec, Acute nasopharyngitis J00 [place] [address] [address] 05 Dec, 2017 Schizoaffective disorder, depressive typ e F25.1 [place] [address] [address] Dec, [place] [address] [address] Nov, Schizoaffective disorder, depressive typ e F25.1 and BMI 45.0-49.9, adult Z68.42 [place] [address] [address] 24 Nov, 2017 [place] [address] [address] Nov, [place] [address] [address] Nov, Schizoaffective disorder, depressive typ e F25.1 [place] [address] [address] Nov, Well woman exam Z01.419 ; BMI 45.0-49.9, adult Z68.42 ; Screening breast examination Z12.31 and Dietary counseling and surveillance Z71.[address] [address] Nov, Paranoid schizophrenia F20.0 [place] [address] [address] 09 Nov, 2017 Gastroesophageal reflux disease, esophag itis presence not specified K21.[address] [address] Oct, Paranoid schizophrenia F20.0 [place] [address] [id number] [address] Oct, Chronic pain syndrome G89.4 and Schizoaffective disorder, depressive type F25.[address] [address] Oct, Chronic pain syndrome G89.4 and Schizoaf fective disorder, depressive type F25.[address] [address] 16 Oct, 2017 Type 2 diabetes mellitus without complic ation, without long-term current use of insulin E11.9 [place] [address] [address] 12 Oct, 2017 Essential hypertension I10 and DM neuro manif type II E11.[address] [address] Oct, [address] [address] Oct, Schizoaffective disorder, depressive typ e F25.1 and BMI 45.0-49.9, adult Z68.[address] [address] Oct, [address] [address] Oct, Paranoid schizophrenia F20.0 [address] [place] [address] Oct, Type 2 diabetes mellitus with diabetic n europathic arthropathy, 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 ; Essential hypertension I10 ; Hypothyroidism (acquired) E03.9 ; Chronic obstructive pulmonary disease, unspecified COPD type J44.9 and Diabetic polyneuropathy associated with type 2 diabetes mellitus E11.42 [facility] [address] [address] Sep, Paranoid schizophrenia F20.0 [facility] [address] [address] Sep, Paranoid schizophrenia F20.0 and BMI 45. 0-49.9, adult Z68.42 [place] [address] [address] Sep, Schizoaffective disorder, depressive typ e F25.1 [place] [address] [address] Sep, [facility] [address] [address] Sep, Paranoid schizophrenia F20.0 [facility] [address] [address] Sep, [facility] [address] [address] Sep, Hypothyroidism (acquired) E03.9 [facility] [address] [address] Sep, [facility] [address] [address] August, Schizoaffective disorder, depressive typ e F25.1 [facility] [address] [address] August, [facility] [address] [address] August, [facility] [address] [address] August, [place] [address] [address] August, Paranoid schizophrenia F20.0 [place] [address] [address] August, History of lupus Z87.39 and Chronic pain syndrome G89.4 [place] [address] [address] August, [facility] [address] [place] [id number] [place] [address] August, Seasonal allergic rhinitis, unspecified trigger J30.2 and BMI 45.0-49.9, adult Z68.42 [place] [address] [address] Jul, Schizoaffective disorder, depressive typ e F25.1 [place] [address] [address] Jul, [place] [address] [address] Jul, Hypothyroidism (acquired) E03.9 [place] [address] [address] Jul, Chronic obstructive pulmonary disease, u nspecified COPD type J44.9 and Type 2 diabetes mellitus without complication, without long-term current use of insulin E11.9 [place] [address] [address] Jul, Paranoid schizophrenia F20.0 [place] [address] [address] Jun, Hypothyroidism (acquired) E03.9 and Seas onal allergic rhinitis due to pollen J30.1 [facility] [address] [facility] [id number] [place] [id number] Jun, Shortness of breath at rest R06.02 ; COPD exacerbation J44.1 and BMI 45.0-49.9, adult Z68.42 [facility] [address] [address] Jun, [facility] [address] [place] [address] Jun, Paranoid schizophrenia F20.0 ; Depressio n with anxiety F41.8 and BMI 45.0-49.9, adult Z68.42 [facility] [address] [place] [address] Jun, Schizoaffective disorder, depressive typ e F25.1 [facility] [address] [id number] Jun, Dental caries K02.9 [place] [address] [address] Jun, Paranoid schizophrenia F20.0 [place] [address] [address] May, Migraine without aura and without status migrainosus, not intractable G43.009 ; DM neuro manif type II E11.49 and Type 2 diabetes mellitus without complication, without long-term current use of insulin E11.9 [place] [address] [id number] May, Migraine without aura and without status migrainosus, not intractable G43.009 [place] [address] [id number] May, Depression with anxiety F41.8 [facility] [address] [id number] May, [facility] [address] [address] May, [place] [address] [id number] May, [place] [address] [address] May, Hypothyroidism (acquired) E03.9 [facility] [address] [address] May, Paranoid schizophrenia F20.0 [facility] [address] [address] 08 May, 2017 Type 2 diabetes mellitus [...] N32.81 and Controlled substance agreement signed Z79.899 [place] [address] [address] 02 May, 2017 Controlled substance agreement signed Z7 9.899 [place] [address] [address] Apr, [facility] [address] [id number] Apr, Dental examination Z01.20 [place] [address] [address] Apr, Paranoid schizophrenia F20.0 [facility] [address] [address] Apr, Hypertension, unspecified type I10 [facility] [address] [address] Apr, Paranoid schizophrenia F20.0 [facility] [address] [address] Apr, [facility] [address] [address] Apr, Tobacco abuse Z72.0 [facility] [address] [address] Apr, [place] [address] [address] Mar, [facility] [address] [address] Mar, Paranoid schizophrenia F20.0 and BMI 45. 0-49.9, adult Z68.42 [facility] [address] [address] Mar, Schizoaffective disorder, depressive typ e F25.1 [place] [address] [address] Mar, [place] [address] [address] Mar, Hypothyroidism, unspecified type E03.9 [place] [address] [address] Mar, Schizoaffective disorder, depressive typ e F25.1 [facility] [address] [facility] [id number] [address] [place] [address] Feb, Gastroenteritis K52.9 and BM I 45.0-49.9, adult Z68.42 [place] [address] [address] Feb, [facility] [address] [address] Feb, [facility] [address] [address] Feb, [place] [address] [address] Feb, [facility] [address] [address] Feb, Paranoid schizophrenia F20.0 [place] [address] [address] 06 Feb, 2017 Gastroesophageal reflux disease without esophagitis K21.9 ; Other seasonal allergic rhinitis J30.2 ; Other allergic rhinitis J30.89 ; Tobacco abuse Z72.0 and BMI 40.0-44.9, adult Z68.[address] [address] Feb, Onychomycosis B35.1 ; Callus of foot L84 and DM neuro manif type II E11.[address] [address] Jan, Chronic allergic rhinitis J30.[address] [address] 16 Jan, [address] [address] Jan, Schizoaffective disorder, depressive typ e F25.[address] [address] Jan, [facility] [address] [place] [address] Jan, Sore throat J02.9 and Season al allergic rhinitis due to other allergic trigger J30.[address] [address] Jan, [address] [address] Jan, [facility] [address] [place], [place] [id number] [address] [place] [address] Jan, Chronic allergic rhinitis J3 0.[address] [address] 27 Dec, 2016 Paranoid schizophrenia F20.0 ; Primary i nsomnia F51.01 and Schizoaffective disorder, depressive type F25.[address] [address] Dec, Chronic pain syndrome G89.4 ; Cervicalgi a of uiidsqgc-agxuztl-ixtfu region M54.2 ; Menopausal syndrome (hot flashes) N95.1 and Encounter for immunization Z23 [place] [address] [address] 14 Dec, 2016 [place] [address] [address] Dec, [place] [address] [address] Dec, Paranoid schizophrenia F20.0 [place] [address] [address] Dec, Schizoaffective disorder, depressive typ e F25.1 [place] [address] [address] Nov, Hypothyroidism, unspecified type E03.9 [facility] [address] [facility] [id number] [place] [address] Nov, Acute seasonal allergic rhin itis due to other allergen J30.89 [place] [address] [address] Nov, [place] [address] [address] Nov, Hypothyroidism, unspecified type E03.9 a nd Other elevated white blood cell (WBC) count D72.828 [place] [address] [address] Nov, Schizoaffective disorder, depressive typ e F25.1 [place] [address] [address] Nov, Paranoid schizophrenia F20.0 [place] [address] [address] Nov, Type 2 diabetes mellitus without complic ation, without long-term current use of insulin E11.9 ; Morbid obesity due to excess calories E66.01 and Chronic pain syndrome G89.4 [place] [address] [address] Oct, Paranoid schizophrenia F20.0 [place] [address] [address] Oct, [place] [address] [address] Oct, Schizoaffective disorder, depressive typ e F25.1 [place] [address] [address] Oct, Hypothyroidism, unspecified type E03.9 a nd Other elevated white blood cell (WBC) count D72.828 [place] [address] [address] Oct, Morbid obesity due to excess calories E6 6.01 ; Chronic obstructive pulmonary disease, unspecified COPD type J44.9 ; History of lupus Z87.39 ; Hypothyroidism, unspecified type E03.9 ; Gastroesophageal reflux disease without esophagitis K21.9 ; Primary insomnia F51.01 and Chronic pain syndrome G89.4 [place] [address] [address] Sep, [place] [address] [address] Sep, [place] [address] [address] Sep, [place] [address] [address] Sep, Paranoid schizophrenia F20.0 [place] [address] [address] Sep, [place] [address] [address] Sep, Paranoid schizophrenia F20.0 [place] [address] [address] Sep, [place] [address] [address] August, Paranoid schizophrenia F20.0 [place] [address] [address] Jul, [place] [address] [address] Jul, Type 2 diabetes mellitus without complic ation, without long-term current use of insulin E11.9 ; Morbid obesity due to excess calories E66.01 ; Depression with anxiety F41.8 ; Hypothyroidism, unspecified type E03.9 ; Seasonal allergic rhinitis due to other allergic trigger J30.89 ; Pain, dental K08.89 and Gastroesophageal reflux disease without esophagitis K21.9 [facility] [address] [id number] [place] [id number] 12 Jul, 2016 Dental examination Z01.20 [place] [address] [address] 07 Jul, 2016 Paranoid schizophrenia F20.0 [place] [address] [address] 13 Jun, 2016 Paranoid schizophrenia F20.0 and Depress ion with anxiety F41.8 [place] [address] [address] Jun, Paranoid schizophrenia F20.0 and Depress ion with anxiety F41.8 [place] [address] [address] Jun, [place] [address] [address] Jun, [facility] [address] [id number] [address] [place] [address] Jun, Seasonal allergic rhinitis d ue to other allergic trigger J30.89 [facility] [place] [id number] [address] [place] [address] May, Sore throat J02.9 ; Other vi ral agents as the cause of diseases classified elsewhere B97.89 and Acute upper respiratory infection, unspecified J06.9 [place] [address] [address] 08 May, 2016 Paranoid schizophrenia F20.0 and Depress ion with anxiety F41.8 [place] [address] [address] Apr, Other seasonal allergic rhinitis J30.2 [place] [address] [address] Apr, Paranoid schizophrenia F20.0 and Depress ion with anxiety F41.8 [facility] [place] [id number] Apr, Bronchitis J40 and Sore thro at J02.9 [address] [address] [address] Apr, Type 2 diabetes mellitus without complic ation, without long-term current use of insulin E11.9 [facility] [address] [address] 02 Apr, 2016 Bronchitis J40 [address] [address] Apr, [place] [address] [address] Apr, [place] [id number] Mar, Type 2 diabetes mellitus without complic [...] R60.9 and Other seasonal allergic rhinitis J30.2 [address] [address] [address] Mar, Paranoid schizophrenia F20.0 and Depress ion with anxiety F41.8 [facility] [address] [id number] Feb, [facility] [address] [address] Feb, [address] [address] [address] Feb, [facility] [address] [address] Feb, [address] [address] [address] Feb, Type 2 diabetes mellitus without complic ation, without long-term current use of insulin E11.9 ; ARIAS on CPAP G47.33 and Preoperative evaluation to rule out surgical contraindication Z01.818 [place] [address] [address] Feb, Paranoid schizophrenia F20.0 and Depress ion with anxiety F41.8 [address] [address] [address] Jan, [address] [address] [address] Jan, Paranoid schizophrenia F20.0 and Depress ion with anxiety F41.8 [address] [address] [address] 17 Jan, 2016 [facility] [address] [address] 14 Jan, 2016 Muscle strain T14.8 [place] [address] [address] 10 Jan, 2016 Paranoid schizophrenia F20.0 [address] [address] [address] 07 Jan, 2016 [facility] [address] [address] Jan, Paranoid schizophrenia F20.0 and Depress ion with anxiety F41.8 [address] [address] [address] Jan, [facility] [address] [address] Jan, [facility] [address] [address] 28 Dec, 2015 [facility] [address] [address] 23 Dec, 2015 Paranoid schizophrenia F20.0 [address] [address] [address] 16 Dec, 2015 Paranoid schizophrenia F20.0 and Depress ion with anxiety F41.8 [address] [address] [address] Nov, [facility] [address] [address] Nov, Paranoid schizophrenia F20.0 [address] [address] [address] Nov, Paranoid schizophrenia F20.0 and Depress ion with anxiety F41.8 [place] [address] [address] Nov, Type 2 diabetes mellitus without complic ation, without long-term current use of insulin E11.9 ; Paranoid schizophrenia F20.0 ; Chronic obstructive pulmonary disease, unspecified COPD type J44.9 ; Morbid obesity due to excess calories E66.01 and Parkinsonian tremor G20 [facility] [address] [address] Nov, [facility] [address] [address] Oct, Paranoid schizophrenia F20.0 [address] [address] [address] Oct, Paranoid schizophrenia F20.0 [place] [address] [address] Oct, Paranoid schizophrenia F20.0 and Depress ion with anxiety F41.8 [place] [address] [address] Oct, [address] [address] [address] Oct, Paranoid schizophrenia F20.0 and Depress ion with anxiety F41.8 [place] [address] [address] Oct, Nasal sore J34.89 [place] [address] [address] Oct, Type 2 diabetes mellitus without complic ation, without long-term current use of insulin E11.9 ; Depression with anxiety F41.8 ; Hypothyroidism, unspecified type E03.9 and History of lupus Z87.39 [place] [address] [address] Oct, [place] [address] [address] Oct, Type 2 diabetes mellitus without complic [...] edema R60.9 and History of lupus Z87.39 [place] [address] [address] Feb, [place] [address] [address] 14 Jan, 2015 [facility] [address] [id number] [place] [address] Jan, [facility] [address] [id number] [place] [address] Jan, [facility] [address] [id number] [place] [address] Dec, [facility] [id number] [place] [address] Nov, [facility] [address] [id number] [place] [address] Nov, [facility] [id number] [place] [address] Oct, [facility] [address] [id number] [place] [address] Oct, [facility] [id number] [place] [address] Oct, [facility] [id number] [place] [address] Sep, Allergic rhinitis 477.9 [facility] [id number] [place] [address] Sep, Rhinitis, allergic 477.9 [facility] [id number] [place] [address] Sep, Rhinitis, allergic 477.9 [facility] [id number] [place] [address] Sep, [facility] [id number] [place] [address] August, [facility] [id number] [place] [address] August, [facility] [id number] [place] [address] August, [facility] [id number] [place] [address] Jul, [facility] [address] [facility] [id number] [place] [address] 14 Jul, 2014 [facility] [address] [id number] [place] [address] 13 Jul, 2014 [facility] [address] [id number] [place] [address] 16 Jun, 2014 [facility] [address] [id number] [place] [address] 16 Jun, 2014 [facility] [address] [id number] [place] [address] Jun, [facility] [address] [id number] [place] [address] Jun, [facility] [address] [id number] [place] [address] Jun, [facility] [address] [id number] [place] [address] Jun, [facility] [address] [id number] [place] [address] Jun, [facility] [address] [id number] [place] [address] Jun, [facility] [address] [id number] [place] [address] May, [facility] [address] [id number] [place] [address] May, [facility] [address] [id number] [place] [address] May, [facility] [address] [id number] [place] [address] May, [facility] [address] [id number] [place] [address] Apr, [facility] [address] [id number] [place] [address] Mar, [facility] [address] [id number] [place] [address] Mar, [facility] [address] [facility] [id number] [place] [address] Mar, [facility] [address] [id number] [place] [address] Mar, [facility] [address] [id number] [place] [address] Mar, [facility] [address] [id number] [place] [address] Mar, [facility] [address] [id number] [place] [address] Mar, [facility] [address] [id number] [place] [address] Mar, [facility] [address] [id number] [place] [address] Mar, [facility] [address] [id number] [place] [address] Feb, [facility] [address] [id number] [place] [address] Feb, [facility] [address] [id number] [place] [address] Feb, [facility] [address] [id number] [place] [address] Feb, [facility] [address] [id number] [place] [address] Feb, [facility] [address] [id number] [place] [address] Feb, [facility] [address] [id number] [place] [address] Feb, [facility] [address] [id number] [place] [address] Feb, [facility] [address] [id number] [place] [address] Jan, [facility] [address] [facility] [id number] [place] [address] 23 Jan, 2014 [facility] [address] [facility] [id number] [place] [address] 16 Jan, 2014 [facility] [address] [facility] [id number] [place] [address] 16 Jan, 2014 [facility] [address] [facility] [id number] [place] [address] 15 Jan, 2014 [facility] [address] [facility] [id number] [place] [address] 15 Jan, 2014 [facility] [address] [facility] [id number] [place] [address] 14 Jan, 2014 [facility] [address] [id number] [place] [address] 14 Jan, 2014 [facility] [address] [id number] [place] [address] 14 Jan, 2014 [facility] [address] [id number] [place] [address] 14 Jan, 2014 [facility] [address] [facility] [id number] [place] [address] 18 Dec, 2013 [facility] [address] [id number] [place] [address] 18 Dec, 2013 [facility] [address] [id number] [place] [address] 10 Dec, 2013 [facility] [address] [facility] [id number] [place] [address] 10 Dec, 2013 [facility] [address] [facility] [id number] [place] [address] Nov, [facility] [address] [id number] [place] [address] Nov, [facility] [address] [facility] [id number] [place] [address] Nov, [facility] [address] [id number] [place] [address] Nov, [facility] [address] [facility] [id number] [place] [address] Nov, [facility] [address] [id number] [place] [address] Oct, [facility] [address] [id number] [place] [address] Oct, [facility] [address] [id number] [place] [address] Oct, [facility] [address] [facility] [id number] [place] [address] Oct, [facility] [address] [id number] [place] [address] Sep, [facility] [address] [id number] [place] [address] Sep, [facility] [place] [facility] [address] [id number] [place] [address] Sep, [facility] [place] [facility] [address] [id number] [place] [address] Sep, [facility] [place] [facility] [address] [id number] [place] [address] Sep, [facility] [place] [facility] [address] [id number] [place] [address] Sep, [facility] [place] [facility] [address] [id number] [place] [address] Sep, [facility] [place] [facility] [address] [id number] [place] [address] Sep, [facility] [place] [facility] [address] [id number] [place] [address] August, [facility] [place] [facility] [address] [id number] [place] [address] August, [facility] [place] [facility] [address] [id number] [place] [address] August, [facility] [place] [facility] [address] [id number] [place] [address] August, [facility] [place] [facility] [address] [facility] [id number] [facility] [place] [address] August, [facility] [place] [facility] [address] [facility] [id number] [facility] [place] [address] August, [facility] [place] [facility] [address] [id number] [facility] [place] [address] August, [facility] [place] [facility] [address] [facility] [id number] [place] [address] Jul, [facility] [place] [facility] [address] [facility] [id number] [place] [address] Jul, [facility] [place] [facility] [address] [facility] [id number] [place] [address] Jul, [facility] [place] [facility] [address] [id number] [facility] [place] [address] Jul, [facility] [place] [facility] [address] [id number] [facility] [place] [address] Jul, [facility] [place] [facility] [address] [facility] [id number] [facility] [place] [address] Jul, [facility] [place] [facility] [address] [id number] [facility] [place] [address] Jul, [facility] [place] [facility] [address] [id number] [facility] [place] [address] Jul, [facility] [place] [facility] [address] [id number] [facility] [place] [address] Jul, [facility] [place] [facility] [address] [facility] [id number] [place] [address] Jul, [facility] [place] [facility] [address] [id number] [place] [address] Jul, [facility] [place] [facility] [address] [facility] [id number] [facility] [place] [address] Jul, [facility] [place] [facility] [address] [id number] [facility] [place] [address] Jun, [facility] [place] [facility] [address] [id number] [place] [address] Jun, [facility] [place] [facility] [address] [id number] [place] [address] Jun, [facility] [place] [facility] [address] [id number] [place] [address] Jun, [facility] [place] [facility] [address] [id number] [place] [address] Jun, [facility] [place] [facility] [address] [id number] [place] [address] May, [facility] [place] [facility] [address] [id number] [place] [address] May, [facility] [address] [id number] [place] [address] May, [facility] [address] [id number] [place] [address] May, [facility] [address] [id number] [place] [address] May, [facility] [address] [id number] [place] [address] May, [facility] [address] [id number] [place] [address] May, [facility] [address] [id number] [place] [address] May, [facility] [address] [id number] [place] [address] Mar, [facility] [address] [id number] [place] [address] Mar, [facility] [address] [id number] [place] [address] Mar, [facility] [address] [id number] [place] [address] Mar, [facility] [address] [id number] [place] [address] Mar, [facility] [address] [id number] [place] [address] Mar, [facility] [address] [id number] [place] [address] Feb, [facility] [address] [id number] [place] [address] Feb, [facility] [address] [id number] [place] [address] Jan, [facility] [address] [id number] [place] [address] Jan, [facility] [address] [id number] [place] [address] Jan, [facility] [address] [id number] [place] [address] Jan, [facility] [address] [id number] [place] [address] Jan, [facility] [address] [id number] [place] [address] Jan, [facility] [address] [id number] [place] [address] Jan, [facility] [address] [id number] [place] [address] Jan, [facility] [address] [id number] [place] [address] 08 Jan, 2013 [facility] [address] [id number] [place] [address] Jan, [facility] [address] [id number] [place] [address] 16 Dec, 2012 [facility] [address] [id number] [place] [address] Nov, [facility] [address] [id number] [place] [address] Nov, [facility] [id number] [place] [address] Nov, [facility] [id number] [place] [address] Oct, [facility] [id number] [place] [address] Oct, [facility] [id number] [place] [address] August, [facility] [id number] [place] [address] Apr, [facility] [id number] [place] [address] Apr, [facility] [id number] [place] [address] Feb, [facility] [id number] [place] [address] Feb, [facility] [id number] [place] [address] Dec, [facility] [id number] [place] [address] Dec, [facility] [id number] [place] [address] Oct, [facility] [id number] [place] [address] Oct, [facility] [id number] [place] [address] Oct, [facility] [id number] [place] [address] Jul, IMMUNIZATIONS No Known Immunizations SOCIAL HISTORY [...] hospitalizations for psychosis/mental illness, last one in [facility] 4 years ago Hospitalization History broken ankle 08/2018
--- OUTSIDE RECORDS SUMMARY | 2019-07-07 04:01 | XMS REPORT ---
Author Author Alayna MONTERROSO Organization [facility] Address [address] [place] [address] Care Team Providers Care Child Nutrition Director Name Role Phone PADMINI MONTERROSO Unavailable PROBLEMS Type Condition ICD9-CM Code [id number] Code Onset Dates Condition S tatus SNOMED Code Problem Type 2 diabetes mellitus wit hout complication, without long-term current use of insulin E11.9 Active 524691995 Problem Gastroesophageal reflux disease without esophagitis K21.9 Active 509752980 Problem History of lupus Z87.39 Active 312 397295 Problem Schizoaffective disorder, depressive type F25.1 Active 21739124 Problem Seasonal allergic rhinitis due to other allergic trigger J30.89 Active 097510401 Problem DM neuro manif type II E11.49 Active 02442708 Problem Primary insomnia F51.01 Active 397 2004 Problem Diabetic polyneuropathy associated with type 2 d iabetes mellitus E11.42 Active 612879060 Problem Chronic pain syndrome G89.4 Active 449575772 Problem 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, 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 Active 523301300 Problem Morbid obesity due to excess calories E66.01 Active 242592909 Problem OAB (overactive bladder) N32.81 Activ e 922626578 Problem Paranoid schizophrenia F20.0 Active 35793077 Problem Gastroesophageal reflux disease, esophagitis pre sence not specified K21.9 Active 431337966 Problem Tobacco abuse Z72.0 Active 282138 000 Problem Dyslipidemia E78.5 Active 4391245 07 Problem Migraine without aura and without status migrain osus, not intractable G43.009 Active 615438396 Problem Hypothyroidism (acquired) E03.9 Acti ve 229443029 Problem Essential hypertension I10 Active 36858104 Problem Seasonal allergic rhinitis due to pollen J30.1 Active 00162388 Problem Chronic obstructive pulmonary disease, unspecified COPD ty pe J44.9 Active 50925081 Problem COPD exacerbation J44.1 Active 19 3066622 Problem Depression with anxiety F41.8 Active 948417460 Problem Cigarette nicotine dependence without complication F17.210 Active 79363050 Problem Allergic rhinitis, unspecified seasonality, unspecifie d trigger J30.9 Active 99817881 Problem Constipation by delayed colonic transit K59.01 Active 27646503 Problem Constipation, unspecified constipation type K59.00 Active 20614722 Problem Other allergic rhinitis J30.89 Active 183268323 Problem Constipation, unspecified constipation type K59.00 Active 33082612 Problem Menopausal syndrome (hot flashes) N95.1 Active 551971973 Problem Other seasonal allergic rhinitis J30.2 Active 680734194 Problem BMI 31.0-31.9,adult Z68.31 Active 171173876 Problem Vaginal dryness, menopausal N95.1 Ac tive 51724417 Problem Diverticulitis K57.92 Active 23321 6006 Problem BMI 40.0-44.9, adult Z68.41 Active 371362138 ALLERGIES No Information ENCOUNTERS Encounter Location Date Diagnosis [place] [address] [address] Jun, [place] [address] [address] Jun, [place] [address] [address] May, [place] [address] [address] May, [place] [address] [address] May, [place] [address] [address] 11 May, 2019 Well woman exam with routine gynecologic al exam Z01.419 ; Screening for STD (sexually transmitted disease) Z11.3 ; Screening for cervical cancer Z12.4 ; Diabetic polyneuropathy associated with type 2 diabetes mellitus E11.42 and Morbid obesity due to excess calories E66.01 [place] [address] [address] 03 May, 2019 [place] [address] [place] [id number] [place] [address] Apr, [facility] [address] [address] Apr, Paranoid schizophrenia F20.0 [facility] [address] [address] Apr, [facility] [address] [address] Apr, [facility] [address] [place] [id number] [place] [address] Apr, Sore throat J02.9 and Non-re current acute suppurative otitis media of both ears without spontaneous rupture of tympanic membranes H66.003 [facility] [address] [address] Apr, [facility] [address] [address] Apr, [facility] [address] [address] Apr, Schizoaffective disorder, depressive typ e F25.1 [place] [address] [address] Mar, Schizoaffective disorder, depressive typ e F25.1 [place] [address] [address] Mar, [facility] [address] [facility] [id number] [address] [place] [address] Mar, Acute nasopharyngitis J00 [facility] [address] [address] Mar, [facility] [address] [address] Mar, [facility] [address] [facility] [place] [id number] Mar, Caries K02.9 [facility] [address] [facility] [place] [id number] Feb, Dental examination Z01.20 and Caries K02 .9 [place] [address] [address] Feb, Constipation, unspecified constipation t ype K59.00 ; Acute hemorrhoid K64.9 ; Tobacco abuse Z72.0 ; BMI 40.0-44.9, adult Z68.41 and Dyslipidemia E78.5 [place] [address] [address] Feb, [place] [address] [address] Feb, [place] [address] [address] Feb, Constipation, unspecified constipation t ype K59.00 ; Left lower quadrant abdominal pain R10.32 ; Hypothyroidism (acquired) E03.9 ; Tobacco abuse Z72.0 and BMI 40.0-44.9, adult Z68.41 [place] [address] [address] Feb, [place] [address] [address] Feb, Chronic obstructive pulmonary disease, u nspecified COPD type J44.9 [place] [address] [address] Jan, [place] [address] [address] Jan, Paranoid schizophrenia F20.0 [place] [address] [address] Jan, [place] [address] [address] Jan, [facility] [address] [address] Jan, Diverticulitis K57.92 and Diarrhea, unsp ecified type R19.7 [place] [address] [address] 17 Jan, 2019 Paranoid schizophrenia F20.0 and Tobacco abuse Z72.0 [place] [address] [address] 15 Jan, 2019 Paranoid schizophrenia F20.0 [place] [address] [address] 14 Jan, 2019 Tobacco use Z72.0 [place] [address] [address] 14 Jan, 2019 Hypothyroidism (acquired) E03.9 and Type 2 diabetes mellitus without complication, without long-term current use of insulin E11.9 [place] [address] [address] Jan, Paranoid schizophrenia F20.0 [place] [address] [address] Jan, [place] [address] [address] Jan, Chronic obstructive pulmonary disease, u nspecified COPD type J44.9 [place] [address] [address] Dec, [place] [address] [address] Dec, Schizoaffective disorder, depressive typ e F25.1 [place] [address] [address] Dec, [place] [address] [address] Dec, [place] [address] [address] Dec, Type 2 diabetes mellitus with diabetic [...] abuse Z72.0 and Encounter for immunization Z23 [facility] [address] [address] 19 Dec, 2018 Encounter for immunization Z23 [facility] [address] [address] Dec, [facility] [address] [address] 13 Dec, 2018 [facility] [address] [address] Dec, [facility] [address] [address] Dec, [facility] [address] [address] Dec, [facility] [address] [address] Dec, [facility] [address] [address] Nov, Paranoid schizophrenia F20.0 [facility] [address] [address] Nov, [facility] [address] [address] Nov, [facility] [address] [address] Nov, [facility] [address] [address] Nov, Encounter for comprehensive diabetic monique t examination, type 2 diabetes mellitus E11.9 and Morbid obesity E66.01 [facility] [address] [address] Nov, [facility] [address] [address] Nov, [facility] [address] [address] Nov, [facility] [address] [address] Nov, Schizoaffective disorder, depressive typ e F25.1 [facility] [address] [address] Nov, Constipation by delayed colonic transit K59.01 [facility] [address] [address] Oct, [facility] [address] [address] Oct, [facility] [address] [address] Oct, [facility] [address] [address] Oct, Chronic obstructive pulmonary disease, u nspecified COPD type J44.9 [facility] [address] [address] Oct, [facility] [address] [address] Sep, Paranoid schizophrenia F20.0 [facility] [address] [address] Sep, [facility] [address] [address] Sep, [facility] [address] [address] Sep, Encounter for immunization Z23 [facility] [address] [address] Sep, [facility] [address] [address] Sep, Closed fracture of right ankle, sequela S82.891S ; Morbid obesity E66.01 and Heat rash L74.0 [facility] [address] [address] Sep, Schizoaffective disorder, depressive typ e F25.1 [facility] [address] [address] 18 Sep, 2018 [facility] [address] [address] Sep, [facility] [address] [address] Sep, [facility] [address] [address] Sep, [facility] [address] [address] Sep, [facility] [address] [address] Sep, [facility] [address] [address] Sep, [facility] [address] [address] Sep, [facility] [address] [address] Sep, [facility] [address] [address] August, Paranoid schizophrenia F20.0 [facility] [address] [address] August, [facility] [address] [address] August, [facility] [address] [address] August, [facility] [address] [address] August, Type 2 diabetes mellitus without complic ation, without long-term current use of insulin E11.9 ; Closed fracture of right ankle, initial encounter S82.891A ; Constipation by delayed colonic transit K59.01 ; Osteoporosis with pathological fracture, initial encounter M80.00XA ; Encounter for immunization Z23 and Morbid obesity E66.01 [facility] [address] [address] August, [facility] [address] [address] August, [facility] [address] [address] August, Acquired deformity of musculoskeletal sy stem, unspecified M95.9 [place] [address] [address] August, Paranoid schizophrenia F20.0 [facility] [address] [place] [id number] [place] [address] August, [place] [address] [address] Jul, [place] [address] [address] Jul, Diabetic polyneuropathy associated with type 2 diabetes mellitus E11.42 ; Paranoid schizophrenia F20.0 ; Preoperative clearance Z01.818 and Morbid obesity E66.01 [place] [address] [address] Jul, Paranoid schizophrenia F20.0 [place] [address] [address] Jul, [place] [address] [address] Jul, [place] [address] [address] Jul, Cigarette nicotine dependence without co mplication F17.210 [place] [address] [address] Jul, Type 2 diabetes mellitus without complic ation, without long-term current use of insulin E11.9 and Hypothyroidism (acquired) E03.9 [place] [address] [address] 01 Jul, 2018 Encounter for Medicare annual wellness e xam Z00.00 ; Morbid obesity due to excess calories E66.01 ; Diabetic polyneuropathy associated with type 2 diabetes mellitus E11.42 ; Chronic obstructive pulmonary disease, unspecified COPD type J44.9 ; Schizoaffective disorder, depressive type F25.1 ; Hypothyroidism (acquired) E03.9 and Morbid obesity E66.01 [place] [address] [address] 28 Jun, 2018 Gastroesophageal reflux disease without esophagitis K21.9 [place] [address] [address] 28 Jun, 2018 Paranoid schizophrenia F20.0 [place] [address] [address] 27 Jun, 2018 Schizoaffective disorder, depressive typ e F25.1 [place] [address] [address] Jun, [place] [address] [address] Jun, Schizoaffective disorder, depressive typ e F25.1 [place] [address] [address] Jun, Cigarette nicotine dependence without co mplication F17.210 [place] [address] [address] 18 Jun, 2018 Type 2 diabetes mellitus without complic ation, without long-term current use of insulin E11.9 [place] [address] [address] 15 Jun, 2018 [place] [address] [address] 13 Jun, 2018 [place] [address] [address] Jun, [place] [address] [address] Jun, [place] [address] [address] Jun, [place] [address] [address] Jun, Paranoid schizophrenia F20.0 ; Type 2 di abetes mellitus without complication, without long-term current use of insulin E11.9 ; Hypothyroidism (acquired) E03.9 and Morbid obesity E66.01 [place] [address] [address] 28 May, 2018 Paranoid schizophrenia F20.0 [place] [address] [address] 20 May, 2018 Hypothyroidism (acquired) E03.9 and Dysl ipidemia E78.5 [place] [address] [address] 19 May, 2018 Cigarette nicotine dependence without co mplication F17.210 [place] [address] [address] 18 May, 2018 [place] [address] [address] 14 May, 2018 Type 2 diabetes mellitus without complic ation, without long-term current use of insulin E11.9 ; Essential hypertension I10 ; Hypothyroidism (acquired) E03.9 and Dyslipidemia E78.5 [place] [address] [address] 13 May, 2018 [place] [address] [address] 08 May, 2018 Schizoaffective disorder, depressive typ e F25.1 [place] [address] [address] 08 May, 2018 Paranoid schizophrenia F20.0 [place] [address] [address] 07 May, 2018 [address] [place] [address] 07 May, 20 19 [place] [address] [address] May, [place] [address] [address] May, Type 2 diabetes mellitus without complic ation, without long-term current use of insulin E11.9 ; Essential hypertension I10 ; Hypothyroidism (acquired) E03.9 and Dyslipidemia E78.5 [place] [address] [address] May, [place] [address] [address] 04 May, 2018 Acute nasopharyngitis J00 [facility] [address] [facility] [id number] [place] [address] 04 May, 2018 Allergic rhinitis, unspecifi ed seasonality, unspecified trigger J30.9 [place] [address] [address] May, [place] [address] [address] Apr, Schizoaffective disorder, depressive typ e F25.1 [place] [address] [address] Apr, [place] [address] [address] Apr, Cigarette nicotine dependence without co mplication F17.210 [place] [address] [address] 17 Apr, 2018 [place] [address] [address] Apr, Cigarette nicotine dependence without co mplication F17.210 [place] [address] [address] Apr, [place] [address] [address] Apr, Migraine without aura and without status migrainosus, not intractable G43.009 [place] [address] [address] Apr, Migraine without aura and without status migrainosus, not intractable G43.009 [place] [address] [address] Mar, Schizoaffective disorder, depressive typ e F25.1 ; BMI 45.0-49.9, adult Z68.42 and BMI 40.0-44.9, adult Z68.41 [place] [address] [address] Mar, Primary insomnia F51.01 [place] [address] [address] Mar, [place] [address] [address] Feb, Primary insomnia F51.01 [place] [address] [address] Feb, [place] [address] [address] Jan, Schizoaffective disorder, depressive typ e F25.1 and BMI 45.0-49.9, adult Z68.42 [place] [address] [address] Jan, [place] [address] [address] Jan, Type 2 diabetes mellitus with diabetic n europathic arthropathy, 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 ; Menopausal syndrome (hot flashes) N95.1 ; BMI 40.0-44.9, adult Z68.41 and Morbid obesity E66.01 [place] [address] [address] Jan, Paranoid schizophrenia F20.0 [place] [address] [address] Jan, [place] [address] [address] Jan, Schizoaffective disorder, depressive typ e F25.1 [place] [address] [address] Jan, [place] [address] [address] Jan, Chronic obstructive pulmonary disease, u nspecified COPD type J44.9 ; BMI 45.0-49.9, adult Z68.42 ; Type 2 diabetes mellitus without complication, without long-term current use of insulin E11.9 ; Hypothyroidism (acquired) E03.9 ; Encounter for immunization Z23 ; Gastroesophageal reflux disease without esophagitis K21.9 ; Primary insomnia F51.01 and Acute nasopharyngitis J00 [place] [address] [address] Dec, [place] [address] [address] Dec, Schizoaffective disorder, depressive typ e F25.1 and BMI 45.0-49.9, adult Z68.42 [place] [address] [address] Dec, [place] [address] [address] Dec, [place] [address] [address] Dec, Acute non-recurrent frontal sinusitis J0 1.10 [place] [address] [address] Dec, Acute non-recurrent frontal sinusitis J0 1.10 ; Weakness of left leg R29.898 ; At high risk for falls Z91.81 and BMI 45.0-49.9, adult Z68.42 [facility] [address] [place] [address] [id number] [place] [address] 17 Dec, 2017 [facility] [address] [address] Dec, [facility] [address] [place] [id number] [place] [address] Dec, Schizoaffective disorder, depressive typ e F25.1 [facility] [address] [facility] [id number] [address] [place] [address] Dec, Acute nasopharyngitis J00 [facility] [address] [address] Dec, Schizoaffective disorder, depressive typ e F25.1 [facility] [address] [address] Dec, [facility] [address] [address] Nov, Schizoaffective disorder, depressive typ e F25.1 and BMI 45.0-49.9, adult Z68.42 [facility] [address] [address] 24 Nov, 2017 [facility] [address] [address] Nov, [facility] [address] [address] Nov, Schizoaffective disorder, depressive typ e F25.1 [facility] [address] [place] [address] [id number] [place] [address] Nov, Well woman exam Z01.419 ; BMI 45.0-49.9, adult Z68.42 ; Screening breast examination Z12.31 and Dietary counseling and surveillance Z71.3 [facility] [address] [address] [id number] [place] [address] Nov, Paranoid schizophrenia F20.0 [facility] [address] [address] Nov, Gastroesophageal reflux disease, esophag itis presence not specified K21.9 [place] [address] [address] Oct, Paranoid schizophrenia F20.0 [facility] [id number] [place] [address] Oct, Chronic pain syndrome G89.4 and Schizoaffective disorder, depressive type F25.1 [place] [address] [address] Oct, Chronic pain syndrome G89.4 and Schizoaf fective disorder, depressive type F25.1 [place] [address] [address] Oct, Type 2 diabetes mellitus without complic ation, without long-term current use of insulin E11.9 [place] [address] [address] Oct, Essential hypertension I10 and DM neuro manif type II E11.[address] [address] Oct, [address] [address] Oct, Schizoaffective disorder, depressive typ e F25.1 and BMI 45.0-49.9, adult Z68.42 [place] [address] [address] Oct, [place] [address] [address] Oct, Paranoid schizophrenia F20.0 [place] [address] [address] Oct, Type 2 diabetes mellitus with diabetic n europathic arthropathy, 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 ; Essential hypertension I10 ; Hypothyroidism (acquired) E03.9 ; Chronic obstructive pulmonary disease, unspecified COPD type J44.9 and Diabetic polyneuropathy associated with type 2 diabetes mellitus E11.42 [facility] [address] [address] Sep, Paranoid schizophrenia F20.0 [facility] [address] [address] Sep, Paranoid schizophrenia F20.0 and BMI 45. 0-49.9, adult Z68.42 [facility] [address] [address] Sep, Schizoaffective disorder, depressive typ e F25.1 [facility] [address] [address] Sep, [facility] [address] [address] Sep, Paranoid schizophrenia F20.0 [facility] [address] [address] Sep, [facility] [address] [address] Sep, Hypothyroidism (acquired) E03.9 [facility] [address] [address] Sep, [facility] [address] [address] August, Schizoaffective disorder, depressive typ e F25.1 [facility] [address] [address] August, [facility] [address] [address] August, [facility] [address] [address] August, [facility] [address] [address] August, Paranoid schizophrenia F20.0 [facility] [address] [address] August, History of lupus Z87.39 and Chronic pain syndrome G89.4 [place] [address] [address] August, [facility] [id number] [place] [address] August, Seasonal allergic rhinitis, unspecified trigger J30.2 and BMI 45.0-49.9, adult Z68.42 [place] [address] [address] Jul, Schizoaffective disorder, depressive typ e F25.1 [place] [address] [id number] Jul, [place] [address] [id number] Jul, Hypothyroidism (acquired) E03.9 [place] [address] [address] Jul, Chronic obstructive pulmonary disease, u nspecified COPD type J44.9 and Type 2 diabetes mellitus without complication, without long-term current use of insulin E11.9 [place] [address] [address] Jul, Paranoid schizophrenia F20.0 [place] [address] [id number] Jun, Hypothyroidism (acquired) E03.9 and Seas onal allergic rhinitis due to pollen J30.1 [facility] [address] [id number] [address] [place] [place] [address] Jun, Shortness of breath at rest R06.02 ; COPD exacerbation J44.1 and BMI 45.0-49.9, adult Z68.42 [place] [address] [address] Jun, [place] [address] [address] Jun, Paranoid schizophrenia F20.0 ; Depressio n with anxiety F41.8 and BMI 45.0-49.9, adult Z68.42 [facility] [address] [place] [id number] Jun, Schizoaffective disorder, depressive typ e F25.1 [facility] [address] [id number] Jun, Dental caries K02.9 [facility] [address] [address] Jun, Paranoid schizophrenia F20.0 [place] [address] [address] May, Migraine without aura and without status migrainosus, not intractable G43.009 ; DM neuro manif type II E11.49 and Type 2 diabetes mellitus without complication, without long-term current use of insulin E11.9 [facility] [address] [address] May, Migraine without aura and without status migrainosus, not intractable G43.009 [place] [address] [address] May, Depression with anxiety F41.8 [facility] [address] [id number] May, [facility] [address] [address] May, [facility] [address] [address] May, [place] [address] [address] May, Hypothyroidism (acquired) E03.9 [facility] [address] [address] May, Paranoid schizophrenia F20.0 [facility] [address] [address] 08 May, 2017 Type 2 diabetes mellitus [...] N32.81 and Controlled substance agreement signed Z79.899 [place] [address] [address] May, Controlled substance agreement signed Z7 9.899 [place] [address] [address] Apr, [facility] [address] [id number] Apr, Dental examination Z01.20 [place] [address] [address] Apr, Paranoid schizophrenia F20.0 [place] [address] [address] Apr, Hypertension, unspecified type I10 [place] [address] [address] Apr, Paranoid schizophrenia F20.0 [place] [address] [address] Apr, [place] [address] [address] Apr, Tobacco abuse Z72.0 [facility] [address] [address] Apr, [place] [address] [address] Mar, [facility] [address] [address] 27 Mar, 2017 Paranoid schizophrenia F20.0 and BMI 45. 0-49.9, adult Z68.42 [facility] [address] [address] 15 Mar, 2017 Schizoaffective disorder, depressive typ e F25.1 [place] [address] [address] 14 Mar, 2017 [place] [address] [address] Mar, Hypothyroidism, unspecified type E03.9 [place] [address] [address] 12 Mar, 2017 Schizoaffective disorder, depressive typ e F25.1 [facility] [address] [facility] [id number] [address] [place] [address] 25 Feb, 2017 Gastroenteritis K52.9 and BM I 45.0-49.9, adult Z68.42 [place] [address] [address] 22 Feb, 2017 [place] [address] [address] Feb, [place] [address] [address] Feb, [place] [address] [address] 16 Feb, 2017 [place] [address] [address] 10 Feb, 2017 Paranoid schizophrenia F20.0 [place] [address] [address] 06 Feb, 2017 Gastroesophageal reflux disease without esophagitis K21.9 ; Other seasonal allergic rhinitis J30.2 ; Other allergic rhinitis J30.89 ; Tobacco abuse Z72.0 and BMI 40.0-44.9, adult Z68.41 [place] [address] [address] Feb, Onychomycosis B35.1 ; Callus of foot L84 and DM neuro manif type II E11.49 [place] [address] [address] 31 Jan, 2017 Chronic allergic rhinitis J30.9 [place] [address] [address] 16 Jan, 2017 [place] [address] [address] Jan, Schizoaffective disorder, depressive typ e F25.[address] [address] Jan, [facility] [address] [address] 07 Jan, 2017 Sore throat J02.9 and Season al allergic rhinitis due to other allergic trigger J30.89 [place] [address] [address] Jan, [address] [address] Jan, [facility] [place] [id number] [place] [address] Jan, Chronic allergic rhinitis J3 0.[address] [address] Dec, Paranoid schizophrenia F20.0 ; Primary i nsomnia F51.01 and Schizoaffective disorder, depressive type F25.[address] [address] Dec, Chronic pain syndrome G89.4 ; Cervicalgi a of mtaeytvg-mzvtvqe-tapia region M54.2 ; Menopausal syndrome (hot flashes) N95.1 and Encounter for immunization Z23 [address] [place] [address] 14 Dec, 2016 [facility] [address] [address] 13 Dec, 2016 [facility] [address] [address] 08 Dec, 2016 Paranoid schizophrenia F20.0 [facility] [address] [address] Dec, Schizoaffective disorder, depressive typ e F25.1 [place] [address] [address] Nov, Hypothyroidism, unspecified type E03.9 [facility] [address] [facility] [id number] [address] [place] [address] Nov, Acute seasonal allergic rhin itis due to other allergen J30.89 [place] [address] [address] Nov, [place] [address] [address] Nov, Hypothyroidism, unspecified type E03.9 a nd Other elevated white blood cell (WBC) count D72.828 [place] [address] [address] Nov, Schizoaffective disorder, depressive typ e F25.1 [place] [address] [address] Nov, Paranoid schizophrenia F20.0 [place] [address] [address] Nov, Type 2 diabetes mellitus without complic ation, without long-term current use of insulin E11.9 ; Morbid obesity due to excess calories E66.01 and Chronic pain syndrome G89.4 [place] [address] [address] Oct, Paranoid schizophrenia F20.0 [place] [address] [address] Oct, [place] [address] [address] Oct, Schizoaffective disorder, depressive typ e F25.1 [place] [address] [address] Oct, Hypothyroidism, unspecified type E03.9 a nd Other elevated white blood cell (WBC) count D72.828 [place] [address] [address] Oct, Morbid obesity due to excess calories E6 6.01 ; Chronic obstructive pulmonary disease, unspecified COPD type J44.9 ; History of lupus Z87.39 ; Hypothyroidism, unspecified type E03.9 ; Gastroesophageal reflux disease without esophagitis K21.9 ; Primary insomnia F51.01 and Chronic pain syndrome G89.4 [place] [address] [address] Sep, [place] [address] [address] Sep, [place] [address] [address] Sep, [place] [address] [address] Sep, Paranoid schizophrenia F20.0 [place] [address] [address] Sep, [place] [address] [address] Sep, Paranoid schizophrenia F20.0 [place] [address] [address] Sep, [place] [address] [address] August, Paranoid schizophrenia F20.0 [place] [address] [address] Jul, [place] [address] [address] 18 Jul, 2017 Type 2 diabetes mellitus without complic ation, without long-term current use of insulin E11.9 ; Morbid obesity due to excess calories E66.01 ; Depression with anxiety F41.8 ; Hypothyroidism, unspecified type E03.9 ; Seasonal allergic rhinitis due to other allergic trigger J30.89 ; Pain, dental K08.89 and Gastroesophageal reflux disease without esophagitis K21.9 [facility] [address] [id number] [place] [id number] 12 Jul, 2016 Dental examination Z01.20 [place] [address] [address] 07 Jul, 2016 Paranoid schizophrenia F20.0 [place] [address] [address] 13 Jun, 2016 Paranoid schizophrenia F20.0 and Depress ion with anxiety F41.8 [place] [address] [address] Jun, Paranoid schizophrenia F20.0 and Depress ion with anxiety F41.8 [place] [address] [address] 09 Jun, 2016 [place] [address] [address] Jun, [facility] [place] [address] [place] [id number] [address] [place] [address] Jun, Seasonal allergic rhinitis d ue to other allergic trigger J30.89 [facility] [place] [id number] [address] [place] [address] May, Sore throat J02.9 ; Other vi ral agents as the cause of diseases classified elsewhere B97.89 and Acute upper respiratory infection, unspecified J06.9 [place] [address] [address] 08 May, 2016 Paranoid schizophrenia F20.0 and Depress ion with anxiety F41.8 [place] [address] [address] 31 Apr, 2016 Other seasonal allergic rhinitis J30.2 [place] [address] [address] Apr, Paranoid schizophrenia F20.0 and Depress ion with anxiety F41.8 [facility] [place] [address] [address] Apr, Bronchitis J40 and Sore thro at J02.9 [place] [address] [address] Apr, Type 2 diabetes mellitus without complic ation, without long-term current use of insulin E11.9 [facility] [place] [address] [address] 02 Apr, 2016 Bronchitis J40 [place] [address] [address] Apr, [place] [address] [address] Apr, [place] [address] [address] Mar, Type 2 diabetes mellitus without complic [...] R60.9 and Other seasonal allergic rhinitis J30.2 [place] [address] [address] Mar, Paranoid schizophrenia F20.0 and Depress ion with anxiety F41.[address] [address] Feb, [address] [address] Feb, [facility] [address] [address] Feb, [facility] [address] [address] Feb, [facility] [address] [address] Feb, Type 2 diabetes mellitus without complic ation, without long-term current use of insulin E11.9 ; ARIAS on CPAP G47.33 and Preoperative evaluation to rule out surgical contraindication Z01.818 [place] [address] [address] Feb, Paranoid schizophrenia F20.0 and Depress ion with anxiety F41.8 [place] [address] [address] Jan, [facility] [address] [address] Jan, Paranoid schizophrenia F20.0 and Depress ion with anxiety F41.8 [facility] [address] [address] Jan, [facility] [address] [address] Jan, Muscle strain T14.8 [facility] [address] [address] Jan, Paranoid schizophrenia F20.0 [facility] [address] [address] Jan, [facility] [address] [address] Jan, Paranoid schizophrenia F20.0 and Depress ion with anxiety F41.8 [facility] [address] [address] Jan, [facility] [address] [address] Jan, [facility] [address] [address] Dec, [facility] [address] [address] Dec, Paranoid schizophrenia F20.0 [facility] [address] [address] 16 Dec, 2015 Paranoid schizophrenia F20.0 and Depress ion with anxiety F41.8 [facility] [address] [address] Nov, [facility] [address] [address] Nov, Paranoid schizophrenia F20.0 [facility] [address] [address] Nov, Paranoid schizophrenia F20.0 and Depress ion with anxiety F41.8 [facility] [address] [address] Nov, Type 2 diabetes mellitus without complic ation, without long-term current use of insulin E11.9 ; Paranoid schizophrenia F20.0 ; Chronic obstructive pulmonary disease, unspecified COPD type J44.9 ; Morbid obesity due to excess calories E66.01 and Parkinsonian tremor G20 [facility] [address] [address] Nov, [facility] [address] [address] Oct, Paranoid schizophrenia F20.0 [facility] [address] [address] Oct, Paranoid schizophrenia F20.0 [facility] [address] [address] Oct, Paranoid schizophrenia F20.0 and Depress ion with anxiety F41.8 [place] [address] [address] Oct, [place] [address] [address] Oct, Paranoid schizophrenia F20.0 and Depress ion with anxiety F41.8 [place] [address] [address] Oct, Nasal sore J34.89 [place] [address] [address] Oct, Type 2 diabetes mellitus without complic ation, without long-term current use of insulin E11.9 ; Depression with anxiety F41.8 ; Hypothyroidism, unspecified type E03.9 and History of lupus Z87.39 [place] [address] [address] Oct, [place] [address] [address] Oct, Type 2 diabetes mellitus without complic [...] edema R60.9 and History of lupus Z87.39 [place] [address] [address] Feb, [place] [address] [address] Jan, [place] [address] [address] Jan, [place] [address] [address] Jan, [place] [id number] [place] [address] 08 Dec, 2014 [facility] [address] [id number] [place] [address] Nov, [facility] [address] [id number] [place] [address] Nov, [facility] [address] [id number] [place] [address] Oct, [facility] [place] [facility] [address] [id number] [place] [address] Oct, [facility] [address] [id number] [place] [address] Oct, [facility] [address] [id number] [place] [address] Sep, Allergic rhinitis 477.9 [facility] [address] [id number] [place] [address] Sep, Rhinitis, allergic 477.9 [facility] [address] [id number] [place] [address] Sep, Rhinitis, allergic 477.9 [facility] [address] [id number] [place] [address] Sep, [facility] [address] [id number] [place] [address] August, [facility] [place] [facility] [address] [id number] [place] [address] August, [facility] [place] [facility] [address] [id number] [place] [address] August, [facility] [place] [facility] [address] [id number] [place] [address] 28 Jul, 2014 [facility] [place] [facility] [address] [id number] [place] [address] 14 Jul, 2014 [facility] [place] [facility] [address] [id number] [place] [address] 13 Jul, 2014 [facility] [place] [facility] [address] [id number] [place] [address] 16 Jun, 2014 [facility] [place] [facility] [address] [facility] [id number] [place] [address] 16 Jun, 2014 [facility] [place] [facility] [address] [facility] [id number] [place] [address] Jun, [facility] [place] [facility] [address] [id number] [place] [address] Jun, [facility] [place] [facility] [address] [id number] [place] [address] Jun, [facility] [place] [facility] [address] [facility] [id number] [place] [address] Jun, [facility] [place] [facility] [address] [id number] [place] [address] Jun, [facility] [place] [facility] [address] [id number] [place] [address] Jun, [facility] [place] [facility] [address] [id number] [place] [address] May, [facility] [place] [facility] [address] [id number] [place] [address] May, [facility] [place] [facility] [address] [id number] [place] [address] May, [facility] [place] [facility] [address] [id number] [place] [address] May, [facility] [place] [facility] [address] [id number] [place] [address] Apr, [facility] [place] [facility] [address] [facility] [id number] [place] [address] Mar, [facility] [place] [facility] [address] [id number] [place] [address] Mar, [facility] [place] [facility] [address] [id number] [place] [address] Mar, [facility] [place] [facility] [address] [id number] [place] [address] Mar, [facility] [place] [facility] [address] [id number] [place] [address] Mar, [facility] [place] [facility] [address] [id number] [place] [address] Mar, [facility] [place] [facility] [address] [id number] [place] [address] Mar, [facility] [place] [facility] [address] [id number] [place] [address] Mar, [facility] [place] [facility] [address] [id number] [place] [address] Mar, [facility] [place] [facility] [address] [id number] [place] [address] Feb, [facility] [place] [facility] [address] [id number] [place] [address] Feb, [facility] [place] [facility] [address] [id number] [place] [address] Feb, [facility] [place] [facility] [address] [id number] [place] [address] Feb, [facility] [place] [facility] [address] [id number] [place] [address] Feb, [facility] [place] [facility] [address] [id number] [place] [address] Feb, [facility] [place] [facility] [address] [id number] [place] [address] Feb, [facility] [place] [facility] [address] [id number] [place] [address] Feb, [facility] [place] [facility] [address] [id number] [place] [address] Jan, [facility] [place] [facility] [address] [id number] [place] [address] Jan, [facility] [place] [facility] [address] [id number] [place] [address] 16 Jan, 2014 [facility] [place] [facility] [address] [id number] [place] [address] 16 Jan, 2014 [facility] [place] [facility] [address] [facility] [id number] [facility] [place] [address] 15 Jan, 2014 [facility] [place] [facility] [address] [facility] [id number] [place] [address] 15 Jan, 2014 [facility] [place] [facility] [address] [id number] [place] [address] 14 Jan, 2014 [facility] [place] [facility] [address] [facility] [id number] [place] [address] 14 Jan, 2014 [facility] [place] [facility] [address] [facility] [id number] [place] [address] 14 Jan, 2014 [facility] [place] [facility] [address] [id number] [place] [address] 14 Jan, 2014 [facility] [place] [facility] [address] [id number] [place] [address] 18 Dec, 2013 [facility] [place] [facility] [address] [id number] [place] [address] 18 Dec, 2013 [facility] [place] [facility] [address] [id number] [place] [address] 10 Dec, 2013 [facility] [place] [facility] [address] [id number] [place] [address] Dec, [facility] [place] [facility] [address] [id number] [place] [address] Nov, [facility] [place] [facility] [address] [id number] [place] [address] Nov, [facility] [place] [facility] [address] [facility] [id number] [place] [address] Nov, [facility] [place] [facility] [address] [id number] [place] [address] Nov, [facility] [place] [facility] [address] [id number] [place] [address] Nov, [facility] [place] [facility] [address] [id number] [place] [address] Oct, [facility] [place] [facility] [address] [facility] [id number] [place] [address] Oct, [facility] [place] [facility] [address] [id number] [place] [address] Oct, [facility] [place] [facility] [address] [id number] [place] [address] Oct, [facility] [place] [facility] [address] [id number] [place] [address] Sep, [facility] [place] [facility] [address] [facility] [id number] [place] [address] Sep, [facility] [place] [facility] [address] [id number] [place] [address] Sep, [facility] [place] [facility] [address] [id number] [place] [address] Sep, [facility] [place] [facility] [address] [id number] [place] [address] Sep, [facility] [place] [facility] [address] [id number] [place] [address] Sep, [facility] [place] [facility] [address] [id number] [place] [address] Sep, [facility] [place] [facility] [address] [id number] [place] [address] Sep, [facility] [place] [facility] [address] [id number] [place] [address] August, [facility] [place] [facility] [address] [id number] [place] [address] August, [facility] [place] [facility] [address] [id number] [place] [address] August, [facility] [place] [facility] [address] [id number] [place] [address] August, [facility] [place] [facility] [address] [id number] [place] [address] August, [facility] [place] [facility] [address] [id number] [place] [address] August, [facility] [place] [facility] [address] [id number] [place] [address] August, [facility] [place] [facility] [address] [id number] [place] [address] Jul, [facility] [place] [facility] [address] [facility] [id number] [place] [address] Jul, [facility] [place] [facility] [address] [id number] [place] [address] Jul, [facility] [place] [facility] [address] [facility] [id number] [place] [address] Jul, [facility] [place] [facility] [address] [id number] [place] [address] Jul, [facility] [place] [facility] [address] [id number] [place] [address] Jul, [facility] [place] [facility] [address] [id number] [place] [address] Jul, [facility] [place] [facility] [address] [id number] [place] [address] Jul, [facility] [place] [facility] [address] [id number] [place] [address] Jul, [facility] [place] [facility] [address] [id number] [place] [address] Jul, [facility] [place] [facility] [address] [id number] [place] [address] Jul, [facility] [place] [facility] [address] [id number] [place] [address] Jul, [facility] [place] [facility] [address] [id number] [place] [address] Jun, [facility] [place] [facility] [address] [id number] [place] [address] Jun, [facility] [place] [facility] [address] [id number] [place] [address] Jun, [facility] [place] [facility] [address] [id number] [place] [address] Jun, [facility] [place] [facility] [address] [facility] [id number] [place] [address] Jun, [facility] [place] [facility] [address] [id number] [place] [address] May, [facility] [place] [facility] [address] [id number] [place] [address] May, [facility] [place] [facility] [address] [id number] [place] [address] May, [facility] [place] [facility] [address] [id number] [place] [address] May, [facility] [place] [facility] [address] [id number] [place] [address] May, [facility] [place] [facility] [address] [id number] [place] [address] May, [facility] [place] [facility] [address] [id number] [place] [address] May, [facility] [place] [facility] [address] [id number] [place] [address] May, [facility] [place] [facility] [address] [id number] [place] [address] Mar, [facility] [place] [facility] [address] [id number] [place] [address] Mar, [facility] [place] [facility] [address] [id number] [place] [address] Mar, [facility] [place] [facility] [address] [id number] [place] [address] Mar, [facility] [place] [facility] [address] [id number] [place] [address] Mar, [facility] [place] [facility] [address] [id number] [place] [address] Mar, [facility] [place] [facility] [address] [id number] [place] [address] Feb, [facility] [place] [facility] [address] [id number] [place] [address] Feb, [facility] [place] [facility] [address] [id number] [place] [address] Jan, [facility] [place] [facility] [address] [id number] [place] [address] Jan, [facility] [place] [facility] [address] [id number] [place] [address] Jan, [facility] [place] [facility] [address] [id number] [place] [address] Jan, [facility] [place] [facility] [address] [id number] [place] [address] Jan, [facility] [place] [facility] [address] [id number] [place] [address] Jan, [facility] [place] [facility] [address] [id number] [place] [address] Jan, [facility] [place] [facility] [address] [id number] [place] [address] Jan, [facility] [place] [facility] [address] [id number] [place] [address] Jan, [facility] [place] [facility] [id number] [place] [address] Jan, [facility] [id number] [place] [address] Dec, [facility] [id number] [place] [address] Nov, [facility] [id number] [place] [address] Nov, [facility] [id number] [place] [address] Nov, [facility] [id number] [place] [address] Oct, [facility] [id number] [place] [address] Oct, [facility] [id number] [place] [address] August, [facility] [id number] [place] [address] Apr, [facility] [id number] [place] [address] Apr, [facility] [id number] [place] [address] Feb, [facility] [id number] [place] [address] Feb, [facility] [id number] [place] [address] Dec, [facility] [id number] [place] [address] Dec, [facility] [id number] [place] [address] Oct, [facility] [id number] [place] [address] Oct, [facility] [id number] [place] [address] Oct, [facility] [id number] [place] [address] Jul, IMMUNIZATIONS No Known Immunizations SOCIAL HISTORY Never Assessed REASON FOR VISIT Medication question PLAN OF CARE VITAL SIGNS MEDICATIONS Medication Instructions Dosage Frequency Start Date End Date Duration S tatus Protonix 40 mg Orally Once a day 1 tablet 24h Nov, 9 0 days Active Triamcinolone Acetonide 0.5 % Externally Once a day apply thin l adams to rash 24h Active RESULTS No Results [...] hospitalizations for psychosis/mental illness, last one in [facility] 4 years ago Hospitalization History broken ankle 08/2018
--- OUTSIDE RECORDS SUMMARY | 2019-07-07 04:01 | XMS REPORT ---
Author Author Alayna PINEDA Organization [facility] [address] [place] [address] Care Team Providers Care Technical Developer Name Role Phone EDWIN RUBYAUSTIN Unavailable PROBLEMS Type Condition ICD9-CM Code QTE08-CA Code Onset Dates Condition S tatus SNOMED Code Problem Type 2 diabetes mellitus wit hout complication, without long-term current use of insulin E11.9 Active 823277897 Problem Gastroesophageal reflux disease without esophagitis K21.9 Active 797348111 Problem History of lupus Z87.39 Active 312 829178 Problem Schizoaffective disorder, depressive type F25.1 Active 98946874 Problem Seasonal allergic rhinitis due to other allergic trigger J30.89 Active 534515892 Problem DM neuro manif type II E11.49 Active 41321326 Problem Primary insomnia F51.01 Active 397 2004 Problem Diabetic polyneuropathy associated with type 2 d iabetes mellitus E11.42 Active 372877246 Problem Chronic pain syndrome G89.4 Active 668741583 Problem 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, 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 Active 976408595 Problem Morbid obesity due to excess calories E66.01 Active 805457659 Problem OAB (overactive bladder) N32.81 Activ e 285512183 Problem Paranoid schizophrenia F20.0 Active 41088343 Problem Gastroesophageal reflux disease, esophagitis pre sence not specified K21.9 Active 875929314 Problem Tobacco abuse Z72.0 Active 678043 000 Problem Dyslipidemia E78.5 Active 8479193 07 Problem Migraine without aura and without status migrain osus, not intractable G43.009 Active 458076614 Problem Hypothyroidism (acquired) E03.9 Acti ve 701644620 Problem Essential hypertension I10 Active 37259265 Problem Seasonal allergic rhinitis due to pollen J30.1 Active 61230961 Problem Chronic obstructive pulmonary disease, unspecified COPD ty pe J44.9 Active 08616019 Problem COPD exacerbation J44.1 Active 19 6418500 Problem Depression with anxiety F41.8 Active 850189270 Problem Cigarette nicotine dependence without complication F17.210 Active 36294218 Problem Allergic rhinitis, unspecified seasonality, unspecifie d trigger J30.9 Active 34126822 Problem Constipation by delayed colonic transit K59.01 Active 83216324 Problem Constipation, unspecified constipation type K59.00 Active 66193008 Problem Other allergic rhinitis J30.89 Active 129142013 Problem Constipation, unspecified constipation type K59.00 Active 46168218 Problem Menopausal syndrome (hot flashes) N95.1 Active 471776661 Problem Other seasonal allergic rhinitis J30.2 Active 562826523 Problem BMI 31.0-31.9,adult Z68.31 Active 571162144 Problem Vaginal dryness, menopausal N95.1 Ac tive 88464672 Problem Diverticulitis K57.92 Active 85160 6006 Problem BMI 40.0-44.9, adult Z68.41 Active 032384297 ALLERGIES No Information ENCOUNTERS Encounter Location Date Diagnosis [place] [address] [address] 27 Jun, 2019 [place] [address] [address] Jun, [place] [address] [address] May, [place] [address] [address] May, [place] [address] [address] May, [place] [address] [address] 11 May, 2019 Well woman exam with routine gynecologic al exam Z01.419 ; Screening for STD (sexually transmitted disease) Z11.3 ; Screening for cervical cancer Z12.4 ; Diabetic polyneuropathy associated with type 2 diabetes mellitus E11.42 and Morbid obesity due to excess calories E66.01 [place] [address] [address] 03 May, 2019 [place] [address] [place] [id number] [place] [address] Apr, [facility] [address] [address] Apr, Paranoid schizophrenia F20.0 [facility] [address] [address] Apr, [facility] [address] [address] Apr, [facility] [address] [place] [id number] [place] [address] Apr, Sore throat J02.9 and Non-re current acute suppurative otitis media of both ears without spontaneous rupture of tympanic membranes H66.003 [facility] [address] [address] Apr, [facility] [address] [address] Apr, [facility] [address] [address] Apr, Schizoaffective disorder, depressive typ e F25.1 [place] [address] [place] [address] [place] [address] Mar, Schizoaffective disorder, depressive typ e F25.1 [facility] [address] [address] Mar, [facility] [address] [place] [id number] [place] [address] Mar, Acute nasopharyngitis J00 [facility] [address] [address] Mar, [facility] [address] [address] Mar, [facility] [address] [facility] [place] [id number] Mar, Caries K02.9 [facility] [address] [facility] [place] [id number] Feb, Dental examination Z01.20 and Caries K02 .9 [place] [address] [address] Feb, Constipation, unspecified constipation t ype K59.00 ; Acute hemorrhoid K64.9 ; Tobacco abuse Z72.0 ; BMI 40.0-44.9, adult Z68.41 and Dyslipidemia E78.5 [place] [address] [address] Feb, [place] [address] [address] Feb, [place] [address] [address] Feb, Constipation, unspecified constipation t ype K59.00 ; Left lower quadrant abdominal pain R10.32 ; Hypothyroidism (acquired) E03.9 ; Tobacco abuse Z72.0 and BMI 40.0-44.9, adult Z68.41 [place] [address] [address] Feb, [place] [address] [address] Feb, Chronic obstructive pulmonary disease, u nspecified COPD type J44.9 [place] [address] [address] Jan, [place] [address] [address] Jan, Paranoid schizophrenia F20.0 [place] [address] [address] Jan, [place] [address] [address] Jan, [facility] [address] [address] Jan, Diverticulitis K57.92 and Diarrhea, unsp ecified type R19.7 [place] [address] [address] 17 Jan, 2019 Paranoid schizophrenia F20.0 and Tobacco abuse Z72.0 [place] [address] [address] 15 Jan, 2019 Paranoid schizophrenia F20.0 [place] [address] [address] 14 Jan, 2019 Tobacco use Z72.0 [place] [address] [address] 14 Jan, 2019 Hypothyroidism (acquired) E03.9 and Type 2 diabetes mellitus without complication, without long-term current use of insulin E11.9 [place] [address] [address] Jan, Paranoid schizophrenia F20.0 [place] [address] [address] Jan, [place] [address] [address] Jan, Chronic obstructive pulmonary disease, u nspecified COPD type J44.9 [place] [address] [address] Dec, [place] [address] [address] Dec, Schizoaffective disorder, depressive typ e F25.1 [place] [address] [address] Dec, [place] [address] [address] Dec, [place] [address] [address] Dec, Type 2 diabetes mellitus with diabetic [...] Z72.0 and Encounter for immunization Z23 [facility] [address] [address] Dec, Encounter for immunization Z23 [facility] [address] [address] Dec, [facility] [address] [address] 13 Dec, 2018 [facility] [address] [address] Dec, [facility] [address] [address] Dec, [facility] [address] [address] Dec, [facility] [address] [address] Dec, [facility] [address] [address] Nov, Paranoid schizophrenia F20.0 [facility] [address] [address] Nov, [facility] [address] [address] Nov, [facility] [address] [address] Nov, [facility] [address] [address] Nov, Encounter for comprehensive diabetic monique t examination, type 2 diabetes mellitus E11.9 and Morbid obesity E66.01 [facility] [address] [address] Nov, [facility] [address] [address] Nov, [facility] [address] [address] Nov, [facility] [address] [address] Nov, Schizoaffective disorder, depressive typ e F25.1 [facility] [address] [address] Nov, Constipation by delayed colonic transit K59.01 [facility] [address] [address] Oct, [facility] [address] [address] Oct, [facility] [address] [address] Oct, [facility] [address] [address] Oct, Chronic obstructive pulmonary disease, u nspecified COPD type J44.9 [facility] [address] [address] Oct, [facility] [address] [address] Sep, Paranoid schizophrenia F20.0 [facility] [address] [address] Sep, [facility] [address] [address] Sep, [facility] [address] [address] Sep, Encounter for immunization Z23 [facility] [address] [address] Sep, [facility] [address] [address] Sep, Closed fracture of right ankle, sequela S82.891S ; Morbid obesity E66.01 and Heat rash L74.0 [facility] [address] [address] Sep, Schizoaffective disorder, depressive typ e F25.1 [facility] [address] [address] Sep, [facility] [address] [address] Sep, [facility] [address] [address] Sep, [facility] [address] [address] Sep, [facility] [address] [address] Sep, [facility] [address] [address] Sep, [facility] [address] [address] Sep, [facility] [address] [address] Sep, [facility] [address] [address] Sep, [facility] [address] [address] August, Paranoid schizophrenia F20.0 [facility] [address] [address] August, [facility] [address] [address] August, [facility] [address] [address] August, [facility] [address] [address] August, Type 2 diabetes mellitus without complic ation, without long-term current use of insulin E11.9 ; Closed fracture of right ankle, initial encounter S82.891A ; Constipation by delayed colonic transit K59.01 ; Osteoporosis with pathological fracture, initial encounter M80.00XA ; Encounter for immunization Z23 and Morbid obesity E66.01 [facility] [address] [address] August, [facility] [address] [address] August, [facility] [address] [address] August, Acquired deformity of musculoskeletal sy stem, unspecified M95.9 [place] [address] [address] August, Paranoid schizophrenia F20.0 [facility] [address] [place] [id number] [place] [address] August, [place] [address] [address] Jul, [place] [address] [address] Jul, Diabetic polyneuropathy associated with type 2 diabetes mellitus E11.42 ; Paranoid schizophrenia F20.0 ; Preoperative clearance Z01.818 and Morbid obesity E66.01 [place] [address] [address] Jul, Paranoid schizophrenia F20.0 [facility] [address] [address] Jul, [place] [address] [address] Jul, [address] [address] Jul, Cigarette nicotine dependence without co mplication F17.210 [place] [address] [address] Jul, Type 2 diabetes mellitus without complic ation, without long-term current use of insulin E11.9 and Hypothyroidism (acquired) E03.9 [place] [address] [address] Jul, Encounter for Medicare annual wellness e xam Z00.00 ; Morbid obesity due to excess calories E66.01 ; Diabetic polyneuropathy associated with type 2 diabetes mellitus E11.42 ; Chronic obstructive pulmonary disease, unspecified COPD type J44.9 ; Schizoaffective disorder, depressive type F25.1 ; Hypothyroidism (acquired) E03.9 and Morbid obesity E66.01 [place] [address] [address] 28 Jun, 2018 Gastroesophageal reflux disease without esophagitis K21.9 [place] [address] [address] 28 Jun, 2018 Paranoid schizophrenia F20.0 [place] [address] [address] Jun, Schizoaffective disorder, depressive typ e F25.1 [place] [address] [address] Jun, [place] [address] [address] 20 Jun, 2018 Schizoaffective disorder, depressive typ e F25.1 [place] [address] [address] Jun, Cigarette nicotine dependence without co mplication F17.210 [place] [address] [address] 18 Jun, 2018 Type 2 diabetes mellitus without complic ation, without long-term current use of insulin E11.9 [place] [address] [address] 15 Jun, 2018 [place] [address] [address] 13 Jun, 2018 [place] [address] [address] Jun, [place] [address] [address] Jun, [place] [address] [address] Jun, [place] [address] [address] Jun, Paranoid schizophrenia F20.0 ; Type 2 di abetes mellitus without complication, without long-term current use of insulin E11.9 ; Hypothyroidism (acquired) E03.9 and Morbid obesity E66.01 [place] [address] [address] 28 May, 2018 Paranoid schizophrenia F20.0 [place] [address] [address] 20 May, 2018 Hypothyroidism (acquired) E03.9 and Dysl ipidemia E78.5 [place] [address] [address] 19 May, 2018 Cigarette nicotine dependence without co mplication F17.210 [place] [address] [address] 18 May, 2018 [place] [address] [address] 14 May, 2018 Type 2 diabetes mellitus without complic ation, without long-term current use of insulin E11.9 ; Essential hypertension I10 ; Hypothyroidism (acquired) E03.9 and Dyslipidemia E78.5 [place] [address] [address] 13 May, 2018 [place] [address] [address] 08 May, 2018 Schizoaffective disorder, depressive typ e F25.1 [place] [address] [address] 08 May, 2018 Paranoid schizophrenia F20.0 [place] [address] [address] 07 May, 2018 [place] [address] [place] [address] 07 May, 19 [facility] [address] [address] May, [place] [address] [address] May, Type 2 diabetes mellitus without complic ation, without long-term current use of insulin E11.9 ; Essential hypertension I10 ; Hypothyroidism (acquired) E03.9 and Dyslipidemia E78.5 [place] [address] [address] May, [place] [address] [address] 04 May, 2018 Acute nasopharyngitis J00 [facility] [address] [facility] [id number] [place] [address] 04 May, 2018 Allergic rhinitis, unspecifi ed seasonality, unspecified trigger J30.9 [place] [address] [address] May, [place] [address] [address] Apr, Schizoaffective disorder, depressive typ e F25.1 [place] [address] [address] Apr, [place] [address] [address] Apr, Cigarette nicotine dependence without co mplication F17.210 [place] [address] [address] Apr, [place] [address] [address] Apr, Cigarette nicotine dependence without co mplication F17.210 [place] [address] [address] Apr, [place] [address] [address] Apr, Migraine without aura and without status migrainosus, not intractable G43.009 [facility] [address] [address] Apr, Migraine without aura and without status migrainosus, not intractable G43.009 [place] [address] [address] Mar, Schizoaffective disorder, depressive typ e F25.1 ; BMI 45.0-49.9, adult Z68.42 and BMI 40.0-44.9, adult Z68.41 [place] [address] [address] 13 Mar, 2018 Primary insomnia F51.01 [place] [address] [address] Mar, [place] [address] [address] 14 Feb, 2018 Primary insomnia F51.01 [place] [address] [address] Feb, [place] [address] [address] 24 Jan, 2018 Schizoaffective disorder, depressive typ e F25.1 and BMI 45.0-49.9, adult Z68.42 [place] [address] [address] Jan, [place] [address] [address] Jan, Type 2 diabetes mellitus with diabetic n europathic arthropathy, 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 ; Menopausal syndrome (hot flashes) N95.1 ; BMI 40.0-44.9, adult Z68.41 and Morbid obesity E66.01 [place] [address] [address] Jan, Paranoid schizophrenia F20.0 [place] [address] [address] Jan, [place] [address] [address] Jan, Schizoaffective disorder, depressive typ e F25.1 [place] [address] [address] Jan, [place] [address] [address] Jan, Chronic obstructive pulmonary disease, u nspecified COPD type J44.9 ; BMI 45.0-49.9, adult Z68.42 ; Type 2 diabetes mellitus without complication, without long-term current use of insulin E11.9 ; Hypothyroidism (acquired) E03.9 ; Encounter for immunization Z23 ; Gastroesophageal reflux disease without esophagitis K21.9 ; Primary insomnia F51.01 and Acute nasopharyngitis J00 [place] [address] [address] Dec, [place] [address] [address] Dec, Schizoaffective disorder, depressive typ e F25.1 and BMI 45.0-49.9, adult Z68.42 [place] [address] [address] Dec, [place] [address] [address] Dec, [place] [address] [address] Dec, Acute non-recurrent frontal sinusitis J0 1.10 [place] [address] [address] Dec, Acute non-recurrent frontal sinusitis J0 1.10 ; Weakness of left leg R29.898 ; At high risk for falls Z91.81 and BMI 45.0-49.9, adult Z68.42 [facility] [address] [address] Dec, [facility] [address] [address] Dec, [facility] [address] [address] Dec, Schizoaffective disorder, depressive typ e F25.1 [facility] [address] [facility] [id number] [place] [address] Dec, Acute nasopharyngitis J00 [facility] [address] [address] Dec, Schizoaffective disorder, depressive typ e F25.1 [place] [address] [address] Dec, [facility] [address] [address] Nov, Schizoaffective disorder, depressive typ e F25.1 and BMI 45.0-49.9, adult Z68.42 [place] [address] [address] Nov, [place] [address] [address] Nov, [place] [address] [address] Nov, Schizoaffective disorder, depressive typ e F25.1 [place] [address] [address] Nov, Well woman exam Z01.419 ; BMI 45.0-49.9, adult Z68.42 ; Screening breast examination Z12.31 and Dietary counseling and surveillance Z71.3 [place] [address] [address] Nov, Paranoid schizophrenia F20.0 [place] [address] [address] Nov, Gastroesophageal reflux disease, esophag itis presence not specified K21.9 [place] [address] [address] Oct, Paranoid schizophrenia F20.0 [facility] [id number] [place] [address] Oct, Chronic pain syndrome G89.4 and Schizoaffective disorder, depressive type F25.1 [place] [address] [address] Oct, Chronic pain syndrome G89.4 and Schizoaf fective disorder, depressive type F25.1 [place] [address] [address] Oct, Type 2 diabetes mellitus without complic ation, without long-term current use of insulin E11.9 [place] [address] [address] Oct, Essential hypertension I10 and DM neuro manif type II E11.49 [place] [address] [address] Oct, [place] [address] [address] Oct, Schizoaffective disorder, depressive typ e F25.1 and BMI 45.0-49.9, adult Z68.42 [place] [address] [address] Oct, [place] [address] [address] Oct, Paranoid schizophrenia F20.0 [place] [address] [address] Oct, Type 2 diabetes mellitus with diabetic n europathic arthropathy, 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 ; Essential hypertension I10 ; Hypothyroidism (acquired) E03.9 ; Chronic obstructive pulmonary disease, unspecified COPD type J44.9 and Diabetic polyneuropathy associated with type 2 diabetes mellitus E11.42 [facility] [address] [address] Sep, Paranoid schizophrenia F20.0 [facility] [address] [address] Sep, Paranoid schizophrenia F20.0 and BMI 45. 0-49.9, adult Z68.42 [facility] [address] [address] Sep, Schizoaffective disorder, depressive typ e F25.1 [facility] [address] [address] Sep, [facility] [address] [address] Sep, Paranoid schizophrenia F20.0 [facility] [address] [address] Sep, [facility] [address] [address] Sep, Hypothyroidism (acquired) E03.9 [facility] [address] [address] Sep, [facility] [address] [address] August, Schizoaffective disorder, depressive typ e F25.1 [facility] [address] [address] August, [facility] [address] [address] August, [facility] [address] [address] August, [facility] [address] [address] August, Paranoid schizophrenia F20.0 [facility] [address] [address] August, History of lupus Z87.39 and Chronic pain syndrome G89.4 [place] [address] [address] August, [facility] [address] [place] [id number] [place] [address] August, Seasonal allergic rhinitis, unspecified trigger J30.2 and BMI 45.0-49.9, adult Z68.42 [place] [address] [address] Jul, Schizoaffective disorder, depressive typ e F25.1 [place] [address] [address] Jul, [place] [address] [address] Jul, Hypothyroidism (acquired) E03.9 [place] [address] [address] Jul, Chronic obstructive pulmonary disease, u nspecified COPD type J44.9 and Type 2 diabetes mellitus without complication, without long-term current use of insulin E11.9 [place] [address] [address] Jul, Paranoid schizophrenia F20.0 [place] [address] [address] Jun, Hypothyroidism (acquired) E03.9 and Seas onal allergic rhinitis due to pollen J30.1 [facility] [address] [place] [id number] [place] [address] Jun, Shortness of breath at rest R06.02 ; COPD exacerbation J44.1 and BMI 45.0-49.9, adult Z68.42 [place] [address] [address] Jun, [place] [address] [address] Jun, Paranoid schizophrenia F20.0 ; Depressio n with anxiety F41.8 and BMI 45.0-49.9, adult Z68.42 [facility] [address] [place] [address] Jun, Schizoaffective disorder, depressive typ e F25.1 [facility] [address] [id number] Jun, Dental caries K02.9 [facility] [address] [place] [id number] Jun, Paranoid schizophrenia F20.0 [place] [address] [place] [address] May, Migraine without aura and without status migrainosus, not intractable G43.009 ; DM neuro manif type II E11.49 and Type 2 diabetes mellitus without complication, without long-term current use of insulin E11.9 [place] [address] [place] [id number] May, Migraine without aura and without status migrainosus, not intractable G43.009 [place] [address] [place] [id number] May, Depression with anxiety F41.8 [facility] [address] [id number] May, [facility] [address] [address] May, [facility] [address] [address] May, [place] [address] [place] [address] May, Hypothyroidism (acquired) E03.9 [facility] [address] [place] [id number] May, Paranoid schizophrenia F20.0 [place] [address] [address] 08 May, 2017 Type 2 diabetes mellitus [...] N32.81 and Controlled substance agreement signed Z79.899 [place] [address] [address] 02 May, 2017 Controlled substance agreement signed Z7 9.899 [place] [address] [address] Apr, [facility] [address] [id number] Apr, Dental examination Z01.20 [place] [address] [address] Apr, Paranoid schizophrenia F20.0 [place] [address] [address] Apr, Hypertension, unspecified type I10 [place] [address] [address] Apr, Paranoid schizophrenia F20.0 [place] [address] [address] Apr, [place] [address] [address] Apr, Tobacco abuse Z72.0 [place] [address] [address] Apr, [place] [address] [address] 29 Mar, 2017 [facility] [address] [address] 27 Mar, 2017 Paranoid schizophrenia F20.0 and BMI 45. 0-49.9, adult Z68.42 [facility] [address] [address] 15 Mar, 2017 Schizoaffective disorder, depressive typ e F25.1 [place] [address] [address] 14 Mar, 2017 [place] [address] [address] Mar, Hypothyroidism, unspecified type E03.9 [place] [address] [address] 12 Mar, 2017 Schizoaffective disorder, depressive typ e F25.1 [facility] [address] [facility] [id number] [place] [address] Feb, Gastroenteritis K52.9 and BM I 45.0-49.9, adult Z68.42 [place] [address] [address] 22 Feb, 2017 [place] [address] [address] Feb, [place] [address] [address] Feb, [place] [address] [address] 16 Feb, 2017 [place] [address] [address] 10 Feb, 2017 Paranoid schizophrenia F20.0 [facility] [address] [address] 06 Feb, 2017 Gastroesophageal reflux disease without esophagitis K21.9 ; Other seasonal allergic rhinitis J30.2 ; Other allergic rhinitis J30.89 ; Tobacco abuse Z72.0 and BMI 40.0-44.9, adult Z68.41 [place] [address] [address] Feb, Onychomycosis B35.1 ; Callus of foot L84 and DM neuro manif type II E11.[address] [address] Jan, Chronic allergic rhinitis J30.9 [place] [address] [address] 16 Jan, 2017 [place] [address] [address] Jan, Schizoaffective disorder, depressive typ e F25.[address] [address] Jan, [facility] [address] [address] Jan, Sore throat J02.9 and Season al allergic rhinitis due to other allergic trigger J30.89 [place] [address] [address] Jan, [address] [address] Jan, [facility] [place] [address] [address] Jan, Chronic allergic rhinitis J3 0.[address] [address] Dec, Paranoid schizophrenia F20.0 ; Primary i nsomnia F51.01 and Schizoaffective disorder, depressive type F25.[address] [address] Dec, Chronic pain syndrome G89.4 ; Cervicalgi a of qomgbfiv-aqedmis-wpgyq region M54.2 ; Menopausal syndrome (hot flashes) N95.1 and Encounter for immunization Z23 [address] [id number] [place] [address] 14 Dec, 2016 [facility] [address] [address] 13 Dec, 2016 [facility] [address] [address] 08 Dec, 2016 Paranoid schizophrenia F20.0 [facility] [address] [address] Dec, Schizoaffective disorder, depressive typ e F25.1 [facility] [address] [address] Nov, Hypothyroidism, unspecified type E03.9 [facility] [address] [facility] [id number] [address] [place] [address] Nov, Acute seasonal allergic rhin itis due to other allergen J30.89 [place] [address] [address] Nov, [place] [address] [address] Nov, Hypothyroidism, unspecified type E03.9 a nd Other elevated white blood cell (WBC) count D72.828 [place] [address] [address] Nov, Schizoaffective disorder, depressive typ e F25.1 [place] [address] [address] Nov, Paranoid schizophrenia F20.0 [place] [address] [address] Nov, Type 2 diabetes mellitus without complic ation, without long-term current use of insulin E11.9 ; Morbid obesity due to excess calories E66.01 and Chronic pain syndrome G89.4 [place] [address] [address] Oct, Paranoid schizophrenia F20.0 [place] [address] [address] Oct, [place] [address] [address] Oct, Schizoaffective disorder, depressive typ e F25.1 [place] [address] [address] Oct, Hypothyroidism, unspecified type E03.9 a nd Other elevated white blood cell (WBC) count D72.828 [place] [address] [address] Oct, Morbid obesity due to excess calories E6 6.01 ; Chronic obstructive pulmonary disease, unspecified COPD type J44.9 ; History of lupus Z87.39 ; Hypothyroidism, unspecified type E03.9 ; Gastroesophageal reflux disease without esophagitis K21.9 ; Primary insomnia F51.01 and Chronic pain syndrome G89.4 [place] [address] [address] Sep, [place] [address] [address] Sep, [place] [address] [address] Sep, [place] [address] [address] Sep, Paranoid schizophrenia F20.0 [place] [address] [address] Sep, [place] [address] [address] Sep, Paranoid schizophrenia F20.0 [place] [address] [address] Sep, [place] [address] [address] August, Paranoid schizophrenia F20.0 [place] [address] [address] Jul, [place] [address] [address] 18 Jul, 2016 Type 2 diabetes mellitus without complic ation, without long-term current use of insulin E11.9 ; Morbid obesity due to excess calories E66.01 ; Depression with anxiety F41.8 ; Hypothyroidism, unspecified type E03.9 ; Seasonal allergic rhinitis due to other allergic trigger J30.89 ; Pain, dental K08.89 and Gastroesophageal reflux disease without esophagitis K21.9 [facility] [address] [place] [id number] [place] [id number] 12 Jul, 2016 Dental examination Z01.20 [place] [address] [address] 07 Jul, 2016 Paranoid schizophrenia F20.0 [place] [address] [address] 13 Jun, 2016 Paranoid schizophrenia F20.0 and Depress ion with anxiety F41.8 [place] [address] [address] Jun, Paranoid schizophrenia F20.0 and Depress ion with anxiety F41.8 [place] [address] [address] Jun, [place] [address] [address] Jun, [facility] [place] [address] [place] [id number] [address] [place] [address] Jun, Seasonal allergic rhinitis d ue to other allergic trigger J30.89 [facility] [place] [id number] [address] [place] [address] May, Sore throat J02.9 ; Other vi ral agents as the cause of diseases classified elsewhere B97.89 and Acute upper respiratory infection, unspecified J06.9 [place] [address] [address] May, Paranoid schizophrenia F20.0 and Depress ion with anxiety F41.8 [place] [address] [address] Apr, Other seasonal allergic rhinitis J30.2 [place] [address] [address] Apr, Paranoid schizophrenia F20.0 and Depress ion with anxiety F41.8 [facility] [address] [address] Apr, Bronchitis J40 and Sore thro at J02.9 [place] [address] [address] Apr, Type 2 diabetes mellitus without complic ation, without long-term current use of insulin E11.9 [facility] [place] [address] [address] Apr, Bronchitis J40 [place] [address] [address] Apr, [place] [address] [address] Apr, [address] [address] Mar, Type 2 diabetes mellitus without complic [...] R60.9 and Other seasonal allergic rhinitis J30.[address] [address] Mar, Paranoid schizophrenia F20.0 and Depress ion with anxiety F41.[address] [address] Feb, [facility] [address] [address] Feb, [facility] [address] [address] Feb, [facility] [address] [address] Feb, [facility] [address] [address] Feb, Type 2 diabetes mellitus without complic ation, without long-term current use of insulin E11.9 ; ARIAS on CPAP G47.33 and Preoperative evaluation to rule out surgical contraindication Z01.818 [place] [address] [address] Feb, Paranoid schizophrenia F20.0 and Depress ion with anxiety F41.8 [place] [address] [address] Jan, [facility] [address] [address] Jan, Paranoid schizophrenia F20.0 and Depress ion with anxiety F41.8 [place] [address] [address] Jan, [facility] [address] [address] Jan, Muscle strain T14.8 [place] [address] [address] Jan, Paranoid schizophrenia F20.0 [facility] [address] [address] Jan, [facility] [address] [address] Jan, Paranoid schizophrenia F20.0 and Depress ion with anxiety F41.8 [facility] [address] [address] Jan, [place] [address] [place] [id number] [place] [address] Jan, [facility] [address] [address] 28 Dec, 2015 [facility] [address] [address] Dec, Paranoid schizophrenia F20.0 [facility] [address] [address] 16 Dec, 2015 Paranoid schizophrenia F20.0 and Depress ion with anxiety F41.8 [facility] [address] [address] Nov, [facility] [address] [address] Nov, Paranoid schizophrenia F20.0 [facility] [address] [address] Nov, Paranoid schizophrenia F20.0 and Depress ion with anxiety F41.8 [facility] [address] [address] Nov, Type 2 diabetes mellitus without complic ation, without long-term current use of insulin E11.9 ; Paranoid schizophrenia F20.0 ; Chronic obstructive pulmonary disease, unspecified COPD type J44.9 ; Morbid obesity due to excess calories E66.01 and Parkinsonian tremor G20 [facility] [address] [place] [id number] [place] [address] Nov, [facility] [address] [address] Oct, Paranoid schizophrenia F20.0 [facility] [address] [address] Oct, Paranoid schizophrenia F20.0 [facility] [address] [address] Oct, Paranoid schizophrenia F20.0 and Depress ion with anxiety F41.8 [facility] [address] [address] Oct, [place] [address] [address] Oct, Paranoid schizophrenia F20.0 and Depress ion with anxiety F41.8 [place] [address] [address] Oct, Nasal sore J34.[address] [address] Oct, Type 2 diabetes mellitus without complic ation, without long-term current use of insulin E11.9 ; Depression with anxiety F41.8 ; Hypothyroidism, unspecified type E03.9 and History of lupus Z87.39 [place] [address] [address] Oct, [place] [address] [address] Oct, Type 2 diabetes mellitus without complic [...] edema R60.9 and History of lupus Z87.39 [place] [address] [address] Feb, [address] [address] Jan, [place] [address] [address] Jan, [place] [address] [address] Jan, [place] [address] [id number] [place] [address] Dec, [facility] [address] [id number] [place] [address] Nov, [facility] [address] [id number] [place] [address] Nov, [facility] [address] [id number] [place] [address] Oct, [facility] [address] [id number] [place] [address] Oct, [facility] [address] [id number] [place] [address] Oct, [facility] [address] [id number] [place] [address] Sep, Allergic rhinitis 477.9 [facility] [address] [place] [id number] [place] [address] Sep, Rhinitis, allergic 477.9 [facility] [address] [id number] [place] [address] Sep, Rhinitis, allergic 477.9 [facility] [address] [place] [id number] [place] [address] Sep, [facility] [address] [id number] [place] [address] August, [facility] [address] [place] [id number] [place] [address] August, [facility] [address] [id number] [place] [address] August, [facility] [address] [id number] [place] [address] 28 Jul, 2014 [facility] [address] [id number] [place] [address] 14 Jul, 2014 [facility] [address] [place] [address] [id number] [place] [address] 13 Jul, 2014 [facility] [address] [id number] [place] [address] Jun, [facility] [address] [id number] [place] [address] Jun, [facility] [address] [id number] [place] [address] Jun, [facility] [address] [id number] [place] [address] Jun, [facility] [address] [id number] [place] [address] Jun, [facility] [address] [id number] [place] [address] Jun, [facility] [address] [id number] [place] [address] Jun, [facility] [address] [id number] [place] [address] Jun, [facility] [address] [id number] [place] [address] May, [facility] [address] [id number] [place] [address] May, [facility] [address] [id number] [place] [address] May, [facility] [address] [id number] [place] [address] May, [facility] [address] [id number] [place] [address] Apr, [facility] [address] [id number] [place] [address] Mar, [facility] [address] [id number] [place] [address] Mar, [facility] [address] [id number] [place] [address] Mar, [facility] [address] [id number] [place] [address] Mar, [facility] [address] [id number] [place] [address] Mar, [facility] [address] [id number] [place] [address] Mar, [facility] [address] [id number] [place] [address] Mar, [facility] [address] [id number] [place] [address] Mar, [facility] [address] [id number] [place] [address] Mar, [facility] [address] [id number] [place] [address] Feb, [facility] [address] [id number] [place] [address] Feb, [facility] [address] [id number] [place] [address] Feb, [facility] [address] [id number] [place] [address] Feb, [facility] [address] [id number] [place] [address] Feb, [facility] [address] [id number] [place] [address] Feb, [facility] [address] [id number] [place] [address] Feb, [facility] [address] [id number] [place] [address] Feb, [facility] [address] [id number] [place] [address] Jan, [facility] [address] [id number] [place] [address] Jan, [facility] [address] [id number] [place] [address] Jan, [facility] [address] [id number] [place] [address] 16 Jan, 2013 [facility] [address] [facility] [id number] [place] [address] 15 Jan, 2014 [facility] [address] [facility] [id number] [place] [address] 15 Jan, 2014 [facility] [address] [id number] [place] [address] 14 Jan, 2014 [facility] [address] [facility] [id number] [place] [address] 14 Jan, 2014 [facility] [address] [facility] [id number] [place] [address] 14 Jan, 2014 [facility] [address] [id number] [place] [address] 14 Jan, 2014 [facility] [address] [id number] [place] [address] 18 Dec, 2013 [facility] [address] [id number] [place] [address] 18 Dec, 2013 [facility] [address] [facility] [id number] [place] [address] 10 Dec, 2013 [facility] [address] [id number] [place] [address] 10 Dec, 2013 [facility] [address] [id number] [place] [address] Nov, [facility] [address] [id number] [place] [address] Nov, [facility] [address] [facility] [id number] [place] [address] Nov, [facility] [address] [id number] [place] [address] Nov, [facility] [address] [id number] [place] [address] Nov, [facility] [address] [id number] [place] [address] Oct, [facility] [address] [facility] [id number] [place] [address] Oct, [facility] [address] [id number] [place] [address] Oct, [facility] [address] [id number] [place] [address] Oct, [facility] [address] [id number] [place] [address] Sep, [facility] [address] [facility] [id number] [place] [address] Sep, [facility] [address] [id number] [place] [address] Sep, [facility] [address] [id number] [place] [address] Sep, [facility] [address] [id number] [place] [address] Sep, [facility] [address] [id number] [place] [address] Sep, [facility] [address] [id number] [place] [address] Sep, [facility] [address] [id number] [place] [address] Sep, [facility] [address] [id number] [place] [address] August, [facility] [address] [id number] [place] [address] August, [facility] [address] [id number] [place] [address] August, [facility] [address] [id number] [place] [address] August, [facility] [address] [id number] [place] [address] August, [facility] [address] [id number] [place] [address] August, [facility] [address] [facility] [id number] [facility] [place] [address] August, [facility] [place] [facility] [address] [facility] [id number] [facility] [place] [address] Jul, [facility] [place] [facility] [address] [id number] [facility] [place] [address] Jul, [facility] [place] [facility] [address] [facility] [id number] [place] [address] Jul, [facility] [place] [facility] [address] [facility] [id number] [facility] [place] [address] Jul, [facility] [place] [facility] [address] [id number] [place] [address] Jul, [facility] [place] [facility] [address] [id number] [facility] [place] [address] Jul, [facility] [place] [facility] [address] [id number] [facility] [place] [address] Jul, [facility] [place] [facility] [address] [id number] [facility] [place] [address] Jul, [facility] [place] [facility] [address] [id number] [place] [address] Jul, [facility] [place] [facility] [address] [id number] [place] [address] Jul, [facility] [place] [facility] [address] [id number] [place] [address] Jul, [facility] [place] [facility] [address] [id number] [facility] [place] [address] Jul, [facility] [place] [facility] [address] [id number] [place] [address] Jun, [facility] [place] [facility] [address] [id number] [place] [address] Jun, [facility] [place] [facility] [address] [id number] [place] [address] Jun, [facility] [place] [facility] [address] [id number] [place] [address] Jun, [facility] [place] [facility] [address] [id number] [place] [address] Jun, [facility] [place] [facility] [address] [id number] [place] [address] May, [facility] [place] [facility] [address] [id number] [place] [address] May, [facility] [place] [facility] [address] [id number] [place] [address] May, [facility] [place] [facility] [address] [id number] [place] [address] May, [facility] [place] [facility] [address] [id number] [place] [address] May, [facility] [place] [facility] [address] [id number] [place] [address] May, [facility] [place] [facility] [address] [id number] [place] [address] May, [facility] [place] [facility] [address] [id number] [place] [address] May, [facility] [place] [facility] [address] [id number] [place] [address] Mar, [facility] [place] [facility] [address] [id number] [place] [address] Mar, [facility] [place] [facility] [address] [facility] [id number] [place] [address] Mar, [facility] [address] [id number] [place] [address] Mar, [facility] [address] [id number] [place] [address] Mar, [facility] [address] [id number] [place] [address] Mar, [facility] [address] [id number] [place] [address] Feb, [facility] [address] [facility] [id number] [place] [address] Feb, [facility] [address] [facility] [id number] [place] [address] Jan, [facility] [address] [id number] [place] [address] Jan, [facility] [address] [id number] [place] [address] Jan, [facility] [address] [facility] [id number] [place] [address] Jan, [facility] [address] [id number] [place] [address] Jan, [facility] [address] [id number] [place] [address] Jan, [facility] [address] [id number] [place] [address] Jan, [facility] [address] [id number] [place] [address] Jan, [facility] [address] [id number] [place] [address] Jan, [facility] [address] [id number] [place] [address] Jan, [facility] [address] [id number] [place] [address] 16 Dec, 2012 [facility] [address] [facility] [id number] [place] [address] Nov, [facility] [address] [facility] [id number] [place] [address] Nov, [facility] [address] [id number] [place] [address] Nov, [facility] [address] [id number] [place] [address] Oct, [facility] [address] [id number] [place] [address] Oct, [facility] [id number] [place] [address] August, [facility] [address] [address] Apr, [facility] [address] [address] Apr, [facility] [address] [address] Feb, [facility] [address] [address] Feb, [facility] [address] [address] Dec, [facility] [address] [address] Dec, [facility] [address] [address] Oct, [facility] [address] [address] Oct, [facility] [address] [address] Oct, [facility] [address] [address] Jul, IMMUNIZATIONS Vaccine Route Administration Date Status INVEGA (PT'S OWN) IM Intramuscular July 21, 2018 Administered SOCIAL HISTORY Never Assessed REASON FOR VISIT Injection PLAN OF CARE VITAL SIGNS MEDICATIONS Unknown Medications RESULTS No Results PROCEDURES Procedure Date Ordered Result Body Site THER/PROPH/DIAG INJ, SC/IM July 21, 2018 INVEGA (PT'S OWN) July 21, 2018 INSTRUCTIONS MEDICATIONS ADMINISTERED No Known Medications [...] hospitalizations for psychosis/mental illness, last one in [facility] 4 years ago Hospitalization History broken ankle 08/2018
--- OUTSIDE RECORDS SUMMARY | 2019-07-07 04:02 | XMS REPORT ---
Author Author Alayna ROJAS Organization [facility] Address [address] [place] [address] Care Team Providers Care Weeder Thinner Name Role Phone RADHA ROJAS Unavailable PROBLEMS Type Condition ICD9-CM Code ZHW23-XI Code Onset Dates Condition S tatus SNOMED Code Problem Type 2 diabetes mellitus wit hout complication, without long-term current use of insulin E11.9 Active 233888202 Problem Gastroesophageal reflux disease without esophagitis K21.9 Active 193045547 Problem History of lupus Z87.39 Active 312 852721 Problem Schizoaffective disorder, depressive type F25.1 Active 50403007 Problem Seasonal allergic rhinitis due to other allergic trigger J30.89 Active 796136381 Problem DM neuro manif type II E11.49 Active 45059988 Problem Primary insomnia F51.01 Active 397 2004 Problem Diabetic polyneuropathy associated with type 2 d iabetes mellitus E11.42 Active 941144584 Problem Chronic pain syndrome G89.4 Active 164767271 Problem 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, 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 Active 704595242 Problem Morbid obesity due to excess calories E66.01 Active 086504830 Problem OAB (overactive bladder) N32.81 Activ e 094435346 Problem Paranoid schizophrenia F20.0 Active 60133420 Problem Gastroesophageal reflux disease, esophagitis pre sence not specified K21.9 Active 785877089 Problem Tobacco abuse Z72.0 Active 055065 000 Problem Dyslipidemia E78.5 Active 7014245 07 Problem Migraine without aura and without status migrain osus, not intractable G43.009 Active 289440336 Problem Hypothyroidism (acquired) E03.9 Acti ve 935188744 Problem Essential hypertension I10 Active 69247952 Problem Seasonal allergic rhinitis due to pollen J30.1 Active 77184077 Problem Chronic obstructive pulmonary disease, unspecified COPD ty pe J44.9 Active 19817925 Problem COPD exacerbation J44.1 Active 19 7530272 Problem Depression with anxiety F41.8 Active 106237660 Problem Cigarette nicotine dependence without complication F17.210 Active 93329438 Problem Allergic rhinitis, unspecified seasonality, unspecifie d trigger J30.9 Active 72657677 Problem Constipation by delayed colonic transit K59.01 Active 81296398 Problem Constipation, unspecified constipation type K59.00 Active 03661121 Problem Other allergic rhinitis J30.89 Active 569957107 Problem Constipation, unspecified constipation type K59.00 Active 93660800 Problem Menopausal syndrome (hot flashes) N95.1 Active 354388944 Problem Other seasonal allergic rhinitis J30.2 Active 029694797 Problem BMI 31.0-31.9,adult Z68.31 Active 094525894 Problem Vaginal dryness, menopausal N95.1 Ac tive 00420076 Problem Diverticulitis K57.92 Active 19138 6006 Problem BMI 40.0-44.9, adult Z68.41 Active 162573127 ALLERGIES No Information ENCOUNTERS Encounter Location Date Diagnosis [facility] [address] [address] Jun, [facility] [address] [address] 11 May, 2019 [facility] [address] [address] May, [facility] [address] [address] Apr, [facility] [address] [address] Apr, Paranoid schizophrenia F20.0 [facility] [address] [address] Apr, [facility] [address] [address] Apr, [facility] [address] [facility] [id number] [address] [place] [address] 07 Apr, 2019 Sore throat J02.9 and Non-re current acute suppurative otitis media of both ears without spontaneous rupture of tympanic membranes H66.003 [facility] [address] [address] Apr, [facility] [address] [address] Apr, [facility] [address] [address] Apr, Schizoaffective disorder, depressive typ e F25.1 [facility] [address] [address] Mar, Schizoaffective disorder, depressive typ e F25.1 [facility] [address] [address] Mar, [facility] [address] [facility] [id number] [address] [place] [address] Mar, Acute nasopharyngitis J00 [facility] [address] [address] Mar, [facility] [address] [address] Mar, [facility] [address] [id number] Mar, Caries K02.9 [facility] [address] [id number] Feb, Dental examination Z01.20 and Caries K02 .9 [facility] [address] [address] Feb, Constipation, unspecified constipation t ype K59.00 ; Acute hemorrhoid K64.9 ; Tobacco abuse Z72.0 ; BMI 40.0-44.9, adult Z68.41 and Dyslipidemia E78.5 [facility] [address] [address] Feb, [facility] [address] [address] Feb, [facility] [address] [address] Feb, Constipation, unspecified constipation t ype K59.00 ; Left lower quadrant abdominal pain R10.32 ; Hypothyroidism (acquired) E03.9 ; Tobacco abuse Z72.0 and BMI 40.0-44.9, adult Z68.41 [place] [address] [address] Feb, [place] [address] [address] Feb, Chronic obstructive pulmonary disease, u nspecified COPD type J44.9 [place] [address] [address] Jan, [place] [address] [address] Jan, Paranoid schizophrenia F20.0 [place] [address] [address] Jan, [place] [address] [address] Jan, [place] [address] [address] Jan, Diverticulitis K57.92 and Diarrhea, unsp ecified type R19.7 [place] [address] [address] Jan, Paranoid schizophrenia F20.0 and Tobacco abuse Z72.0 [place] [address] [address] Jan, Paranoid schizophrenia F20.0 [place] [address] [address] Jan, Tobacco use Z72.0 [place] [address] [address] 14 Jan, 2019 Hypothyroidism (acquired) E03.9 and Type 2 diabetes mellitus without complication, without long-term current use of insulin E11.9 [place] [address] [address] 10 Jan, 2019 Paranoid schizophrenia F20.0 [place] [address] [address] Jan, [place] [address] [address] Jan, Chronic obstructive pulmonary disease, u nspecified COPD type J44.9 [place] [address] [address] Dec, [place] [address] [address] Dec, Schizoaffective disorder, depressive typ e F25.1 [place] [address] [address] Dec, [place] [address] [address] Dec, [place] [address] [address] Dec, Type 2 diabetes mellitus with diabetic [...] abuse Z72.0 and Encounter for immunization Z23 [place] [address] [address] Dec, Encounter for immunization Z23 [place] [address] [address] Dec, [place] [address] [address] Dec, [place] [address] [address] Dec, [facility] [address] [address] Dec, [facility] [address] [address] Dec, [facility] [address] [address] Dec, [facility] [address] [address] Nov, Paranoid schizophrenia F20.0 [facility] [address] [address] Nov, [facility] [address] [address] Nov, [facility] [address] [address] Nov, [facility] [address] [address] Nov, Encounter for comprehensive diabetic monique t examination, type 2 diabetes mellitus E11.9 and Morbid obesity E66.01 [facility] [address] [address] Nov, [facility] [address] [address] Nov, [facility] [address] [address] Nov, [facility] [address] [address] Nov, Schizoaffective disorder, depressive typ e F25.1 [facility] [address] [address] Nov, Constipation by delayed colonic transit K59.01 [facility] [address] [address] Oct, [facility] [address] [address] Oct, [facility] [address] [address] Oct, [facility] [address] [address] Oct, Chronic obstructive pulmonary disease, u nspecified COPD type J44.9 [facility] [address] [address] Oct, [facility] [address] [address] Sep, Paranoid schizophrenia F20.0 [facility] [address] [address] Sep, [facility] [address] [address] Sep, [facility] [address] [address] Sep, Encounter for immunization Z23 [facility] [address] [address] Sep, [facility] [address] [address] Sep, Closed fracture of right ankle, sequela S82.891S ; Morbid obesity E66.01 and Heat rash L74.0 [place] [address] [address] Sep, Schizoaffective disorder, depressive typ e F25.1 [facility] [address] [address] Sep, [facility] [address] [address] Sep, [facility] [address] [address] Sep, [facility] [address] [address] Sep, [facility] [id number] [place] [address] Sep, [facility] [address] [address] Sep, [facility] [address] [address] Sep, [facility] [address] [address] Sep, [facility] [address] [address] Sep, [facility] [address] [address] August, Paranoid schizophrenia F20.0 [facility] [address] [address] August, [facility] [address] [address] August, [facility] [address] [address] August, [facility] [address] [address] August, Type 2 diabetes mellitus without complic ation, without long-term current use of insulin E11.9 ; Closed fracture of right ankle, initial encounter S82.891A ; Constipation by delayed colonic transit K59.01 ; Osteoporosis with pathological fracture, initial encounter M80.00XA ; Encounter for immunization Z23 and Morbid obesity E66.01 [facility] [id number] [place] [address] August, [facility] [address] [address] August, [facility] [address] [address] August, Acquired deformity of musculoskeletal sy stem, unspecified M95.9 [facility] [address] [address] August, Paranoid schizophrenia F20.0 [facility] [address] [id number] [place] [address] August, [place] [address] [address] Jul, [place] [address] [address] Jul, Diabetic polyneuropathy associated with type 2 diabetes mellitus E11.42 ; Paranoid schizophrenia F20.0 ; Preoperative clearance Z01.818 and Morbid obesity E66.01 [place] [address] [address] Jul, Paranoid schizophrenia F20.0 [place] [address] [address] Jul, [place] [address] [address] Jul, [place] [address] [address] Jul, Cigarette nicotine dependence without co mplication F17.210 [place] [address] [address] Jul, Type 2 diabetes mellitus without complic ation, without long-term current use of insulin E11.9 and Hypothyroidism (acquired) E03.9 [place] [address] [address] Jul, Encounter for Medicare annual wellness e xam Z00.00 ; Morbid obesity due to excess calories E66.01 ; Diabetic polyneuropathy associated with type 2 diabetes mellitus E11.42 ; Chronic obstructive pulmonary disease, unspecified COPD type J44.9 ; Schizoaffective disorder, depressive type F25.1 ; Hypothyroidism (acquired) E03.9 and Morbid obesity E66.01 [place] [address] [address] Jun, Gastroesophageal reflux disease without esophagitis K21.9 [place] [address] [address] 28 Jun, 2018 Paranoid schizophrenia F20.0 [place] [address] [address] Jun, Schizoaffective disorder, depressive typ e F25.1 [place] [address] [address] Jun, [place] [address] [address] Jun, Schizoaffective disorder, depressive typ e F25.1 [place] [address] [address] Jun, Cigarette nicotine dependence without co mplication F17.210 [place] [address] [address] Jun, Type 2 diabetes mellitus without complic ation, without long-term current use of insulin E11.9 [place] [address] [address] Jun, [place] [address] [address] Jun, [place] [address] [address] Jun, [place] [address] [address] Jun, [place] [address] [address] Jun, [place] [address] [address] Jun, Paranoid schizophrenia F20.0 ; Type 2 di abetes mellitus without complication, without long-term current use of insulin E11.9 ; Hypothyroidism (acquired) E03.9 and Morbid obesity E66.01 [place] [address] [address] May, Paranoid schizophrenia F20.0 [place] [address] [address] 20 May, 2018 Hypothyroidism (acquired) E03.9 and Dysl ipidemia E78.5 [place] [address] [address] May, Cigarette nicotine dependence without co mplication F17.210 [place] [address] [address] May, [place] [address] [address] 14 May, 2018 Type 2 diabetes mellitus without complic ation, without long-term current use of insulin E11.9 ; Essential hypertension I10 ; Hypothyroidism (acquired) E03.9 and Dyslipidemia E78.5 [place] [address] [address] 13 May, 2018 [place] [address] [address] May, Schizoaffective disorder, depressive typ e F25.1 [place] [address] [address] May, Paranoid schizophrenia F20.0 [place] [address] [address] May, [facility] [address] [place] [address] 07 May, 19 [place] [address] [address] May, [place] [address] [address] May, Type 2 diabetes mellitus without complic ation, without long-term current use of insulin E11.9 ; Essential hypertension I10 ; Hypothyroidism (acquired) E03.9 and Dyslipidemia E78.5 [place] [address] [address] May, [place] [address] [address] 04 May, 2018 Acute nasopharyngitis J00 [facility] [address] [facility] [id number] [address] [place] [address] 04 May, 2018 Allergic rhinitis, unspecifi ed seasonality, unspecified trigger J30.9 [facility] [address] [address] May, [facility] [address] [address] Apr, Schizoaffective disorder, depressive typ e F25.1 [place] [address] [address] Apr, [place] [address] [address] Apr, Cigarette nicotine dependence without co mplication F17.210 [place] [address] [address] Apr, [place] [address] [address] Apr, Cigarette nicotine dependence without co mplication F17.210 [place] [address] [address] Apr, [place] [address] [address] Apr, Migraine without aura and without status migrainosus, not intractable G43.009 [place] [address] [address] Apr, Migraine without aura and without status migrainosus, not intractable G43.009 [place] [address] [address] Mar, Schizoaffective disorder, depressive typ e F25.1 ; BMI 45.0-49.9, adult Z68.42 and BMI 40.0-44.9, adult Z68.41 [place] [address] [address] 13 Mar, 2018 Primary insomnia F51.01 [place] [address] [address] Mar, [place] [address] [address] 14 Feb, 2018 Primary insomnia F51.01 [place] [address] [address] 08 Feb, 2018 [place] [address] [address] Jan, Schizoaffective disorder, depressive typ e F25.1 and BMI 45.0-49.9, adult Z68.42 [place] [address] [address] Jan, [place] [address] [address] Jan, Type 2 diabetes mellitus with diabetic n europathic arthropathy, 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 ; Menopausal syndrome (hot flashes) N95.1 ; BMI 40.0-44.9, adult Z68.41 and Morbid obesity E66.01 [place] [address] [address] Jan, Paranoid schizophrenia F20.0 [place] [address] [address] Jan, [place] [address] [address] Jan, Schizoaffective disorder, depressive typ e F25.1 [place] [address] [address] Jan, [place] [address] [address] Jan, Chronic obstructive pulmonary disease, u nspecified COPD type J44.9 ; BMI 45.0-49.9, adult Z68.42 ; Type 2 diabetes mellitus without complication, without long-term current use of insulin E11.9 ; Hypothyroidism (acquired) E03.9 ; Encounter for immunization Z23 ; Gastroesophageal reflux disease without esophagitis K21.9 ; Primary insomnia F51.01 and Acute nasopharyngitis J00 [facility] [address] [address] 27 Dec, 2017 [facility] [address] [address] 21 Dec, 2017 Schizoaffective disorder, depressive typ e F25.1 and BMI 45.0-49.9, adult Z68.42 [facility] [address] [address] 21 Dec, 2017 [place] [address] [address] 18 Dec, 2017 [facility] [address] [address] 18 Dec, 2017 Acute non-recurrent frontal sinusitis J0 1.10 [facility] [address] [address] 18 Dec, 2017 Acute non-recurrent frontal sinusitis J0 1.10 ; Weakness of left leg R29.898 ; At high risk for falls Z91.81 and BMI 45.0-49.9, adult Z68.42 [place] [address] [address] 17 Dec, 2017 [facility] [address] [address] 17 Dec, 2017 [facility] [address] [address] 10 Dec, 2017 Schizoaffective disorder, depressive typ e F25.1 [facility] [address] [facility] [id number] [address] [place] [address] 10 Dec, 2017 Acute nasopharyngitis J00 [facility] [address] [address] Dec, Schizoaffective disorder, depressive typ e F25.1 [place] [address] [address] Dec, [place] [address] [address] Nov, Schizoaffective disorder, depressive typ e F25.1 and BMI 45.0-49.9, adult Z68.42 [place] [address] [address] Nov, [place] [address] [address] Nov, [place] [address] [address] Nov, Schizoaffective disorder, depressive typ e F25.1 [place] [address] [address] Nov, Well woman exam Z01.419 ; BMI 45.0-49.9, adult Z68.42 ; Screening breast examination Z12.31 and Dietary counseling and surveillance Z71.3 [place] [address] [address] Nov, Paranoid schizophrenia F20.0 [place] [address] [address] Nov, Gastroesophageal reflux disease, esophag itis presence not specified K21.9 [place] [address] [address] Oct, Paranoid schizophrenia F20.0 [facility] [id number] [place] [address] Oct, Chronic pain syndrome G89.4 and Schizoaffective disorder, depressive type F25.1 [place] [address] [address] Oct, Chronic pain syndrome G89.4 and Schizoaf fective disorder, depressive type F25.1 [place] [address] [address] 16 Oct, 2017 Type 2 diabetes mellitus without complic ation, without long-term current use of insulin E11.9 [place] [address] [address] Oct, Essential hypertension I10 and DM neuro manif type II E11.[address] [address] Oct, [address] [address] Oct, Schizoaffective disorder, depressive typ e F25.1 and BMI 45.0-49.9, adult Z68.[address] [address] Oct, [address] [address] Oct, Paranoid schizophrenia F20.[address] [address] Oct, Type 2 diabetes mellitus with diabetic n europathic arthropathy, 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 ; Essential hypertension I10 ; Hypothyroidism (acquired) E03.9 ; Chronic obstructive pulmonary disease, unspecified COPD type J44.9 and Diabetic polyneuropathy associated with type 2 diabetes mellitus E11.[address] [address] Sep, Paranoid schizophrenia F20.[address] [address] Sep, Paranoid schizophrenia F20.0 and BMI 45. 0-49.9, adult Z68.[address] [address] Sep, Schizoaffective disorder, depressive typ e F25.[address] [address] Sep, [facility] [address] [address] Sep, Paranoid schizophrenia F20.0 [facility] [address] [address] Sep, [facility] [address] [address] Sep, Hypothyroidism (acquired) E03.9 [facility] [address] [address] Sep, [place] [address] [address] August, Schizoaffective disorder, depressive typ e F25.1 [place] [address] [address] August, [place] [address] [address] August, [facility] [address] [address] August, [facility] [address] [address] August, Paranoid schizophrenia F20.0 [place] [address] [address] August, History of lupus Z87.39 and Chronic pain syndrome G89.4 [facility] [address] [address] August, [facility] [address] [facility] [id number] [place] [address] August, Seasonal allergic rhinitis, unspecified trigger J30.2 and BMI 45.0-49.9, adult Z68.42 [facility] [address] [address] Jul, Schizoaffective disorder, depressive typ e F25.1 [place] [address] [address] Jul, [facility] [address] [address] 13 Jul, 2017 Hypothyroidism (acquired) E03.9 [facility] [address] [address] 11 Jul, 2017 Chronic obstructive pulmonary disease, u nspecified COPD type J44.9 and Type 2 diabetes mellitus without complication, without long-term current use of insulin E11.9 [facility] [address] [address] Jul, Paranoid schizophrenia F20.0 [place] [address] [address] Jun, Hypothyroidism (acquired) E03.9 and Seas onal allergic rhinitis due to pollen J30.1 [facility] [address] [facility] [id number] [address] [place] [address] Jun, Shortness of breath at rest R06.02 ; COPD exacerbation J44.1 and BMI 45.0-49.9, adult Z68.42 [place] [address] [address] Jun, [facility] [address] [address] Jun, Paranoid schizophrenia F20.0 ; Depressio n with anxiety F41.8 and BMI 45.0-49.9, adult Z68.42 [facility] [address] [address] Jun, Schizoaffective disorder, depressive typ e F25.1 [facility] [id number] [place], [place] [id number] Jun, Dental caries K02.9 [facility] [address] [address] Jun, Paranoid schizophrenia F20.0 [facility] [address] [address] May, Migraine without aura and without status migrainosus, not intractable G43.009 ; DM neuro manif type II E11.49 and Type 2 diabetes mellitus without complication, without long-term current use of insulin E11.9 [facility] [address] [address] May, Migraine without aura and without status migrainosus, not intractable G43.009 [facility] [address] [address] May, Depression with anxiety F41.8 [facility] [id number] [place] [id number] May, [facility] [address] [address] May, [facility] [address] [address] May, [facility] [address] [address] May, Hypothyroidism (acquired) E03.9 [place] [address] [address] May, Paranoid schizophrenia F20.0 [facility] [address] [address] May, Type 2 diabetes mellitus without complic [...] N32.81 and Controlled substance agreement signed Z79.899 [facility] [address] [address] [place] [address] May, Controlled substance agreement signed Z7 9.899 [facility] [id number] [place] [address] Apr, [facility] [address] [id number] [place] [id number] Apr, Dental examination Z01.20 [facility] [address] [address] Apr, Paranoid schizophrenia F20.0 [facility] [address] [address] Apr, Hypertension, unspecified type I10 [facility] [address] [address] Apr, Paranoid schizophrenia F20.0 [facility] [address] [address] Apr, [facility] [address] [address] Apr, Tobacco abuse Z72.0 [facility] [id number] [place] [address] Apr, [facility] [address] [address] Mar, [facility] [address] [address] Mar, Paranoid schizophrenia F20.0 and BMI 45. 0-49.9, adult Z68.42 [facility] [address] [address] Mar, Schizoaffective disorder, depressive typ e F25.1 [facility] [address] [address] Mar, [facility] [address] [address] Mar, Schizoaffective disorder, depressive typ e F25.1 [place] [address] [address] Mar, Hypothyroidism, unspecified type E03.9 [facility] [address] [facility] [id number] [address] [place] [address] Feb, Gastroenteritis K52.9 and BM I 45.0-49.9, adult Z68.42 [place] [address] [address] Feb, [place] [address] [address] Feb, [address] [address] Feb, [place] [address] [address] Feb, [address] [address] Feb, Paranoid schizophrenia F20.[address] [address] 06 Feb, 2017 Gastroesophageal reflux disease without esophagitis K21.9 ; Other seasonal allergic rhinitis J30.2 ; Other allergic rhinitis J30.89 ; Tobacco abuse Z72.0 and BMI 40.0-44.9, adult Z68.[address] [address] Feb, Onychomycosis B35.1 ; Callus of foot L84 and DM neuro manif type II E11.49 [place] [address] [address] Jan, Chronic allergic rhinitis J30.[address] [address] Jan, [address] [address] Jan, Schizoaffective disorder, depressive typ e F25.1 [id number] [place] [address] 10 Jan, 2017 [facility] [id number] [place] [address] 07 Jan, 2017 Sore throat J02.9 and Season al allergic rhinitis due to other allergic trigger J30.89 [place] [address] [address] Jan, [place] [address] [address] Jan, [facility] [address] [address] [place] [address] Jan, Chronic allergic rhinitis J3 0.9 [place] [address] [address] 27 Dec, 2016 Paranoid schizophrenia F20.0 ; Primary i nsomnia F51.01 and Schizoaffective disorder, depressive type F25.1 [place] [address] [address] Dec, Chronic pain syndrome G89.4 ; Cervicalgi a of hlerisfr-kiggjmz-asbdm region M54.2 ; Menopausal syndrome (hot flashes) N95.1 and Encounter for immunization Z23 [place] [address] [address] 14 Dec, 2016 [place] [address] [address] 13 Dec, 2016 [place] [address] [address] 08 Dec, 2016 Paranoid schizophrenia F20.0 [place] [address] [address] Dec, Schizoaffective disorder, depressive typ e F25.1 [place] [address] [address] Nov, Hypothyroidism, unspecified type E03.9 [facility] [address] [address] [place] [address] Nov, Acute seasonal allergic rhin itis due to other allergen J30.89 [place] [address] [address] Nov, [place] [address] [address] Nov, Hypothyroidism, unspecified type E03.9 a nd Other elevated white blood cell (WBC) count D72.828 [place] [address] [address] Nov, Schizoaffective disorder, depressive typ e F25.1 [place] [address] [address] Nov, Paranoid schizophrenia F20.0 [place] [address] [address] Nov, Type 2 diabetes mellitus without complic ation, without long-term current use of insulin E11.9 ; Morbid obesity due to excess calories E66.01 and Chronic pain syndrome G89.4 [place] [address] [address] Oct, Paranoid schizophrenia F20.0 [place] [address] [address] Oct, [place] [address] [address] Oct, Schizoaffective disorder, depressive typ e F25.1 [place] [address] [address] Oct, Hypothyroidism, unspecified type E03.9 a nd Other elevated white blood cell (WBC) count D72.828 [place] [address] [address] Oct, Morbid obesity due to excess calories E6 6.01 ; Chronic obstructive pulmonary disease, unspecified COPD type J44.9 ; History of lupus Z87.39 ; Hypothyroidism, unspecified type E03.9 ; Gastroesophageal reflux disease without esophagitis K21.9 ; Primary insomnia F51.01 and Chronic pain syndrome G89.4 [facility] [address] [address] 30 Sep, 2016 [facility] [address] [address] Sep, [facility] [address] [address] Sep, [facility] [address] [address] Sep, Paranoid schizophrenia F20.0 [facility] [address] [address] Sep, [facility] [address] [address] Sep, Paranoid schizophrenia F20.0 [facility] [address] [address] Sep, [facility] [address] [address] August, Paranoid schizophrenia F20.0 [facility] [address] [address] Jul, [facility] [address] [address] Jul, Type 2 diabetes mellitus without complic ation, without long-term current use of insulin E11.9 ; Morbid obesity due to excess calories E66.01 ; Depression with anxiety F41.8 ; Hypothyroidism, unspecified type E03.9 ; Seasonal allergic rhinitis due to other allergic trigger J30.89 ; Pain, dental K08.89 and Gastroesophageal reflux disease without esophagitis K21.9 [facility] [address] [id number] [place] [id number] Jul, Dental examination Z01.20 [facility] [address] [address] Jul, Paranoid schizophrenia F20.0 [place] [address] [address] 13 Jun, 2016 Paranoid schizophrenia F20.0 and Depress ion with anxiety F41.8 [place] [address] [address] Jun, Paranoid schizophrenia F20.0 and Depress ion with anxiety F41.8 [place] [address] [address] Jun, [place] [address] [address] Jun, [facility] [address] [address] Jun, Seasonal allergic rhinitis d ue to other allergic trigger J30.89 [facility] [address] [address] May, Sore throat J02.9 ; Other vi ral agents as the cause of diseases classified elsewhere B97.89 and Acute upper respiratory infection, unspecified J06.[address] [address] May, Paranoid schizophrenia F20.0 and Depress ion with anxiety F41.8 [place] [address] [address] Apr, Other seasonal allergic rhinitis J30.2 [place] [address] [address] Apr, Paranoid schizophrenia F20.0 and Depress ion with anxiety F41.8 [facility] [address] [address] Apr, Bronchitis J40 and Sore thro at J02.9 [place] [address] [address] Apr, Type 2 diabetes mellitus without complic ation, without long-term current use of insulin E11.9 [facility] [address] [facility] [id number] [place] [address] Apr, Bronchitis J40 [place] [address] [address] Apr, [facility] [address] [address] Apr, [place] [address] [address] Mar, Type 2 diabetes mellitus without complic [...] Other seasonal allergic rhinitis J30.2 [place] [address] [address] Mar, Paranoid schizophrenia F20.0 and Depress ion with anxiety F41.8 [place] [address] [address] Feb, [place] [address] [address] Feb, [place] [address] [address] Feb, [place] [address] [address] Feb, [place] [address] [address] Feb, Type 2 diabetes mellitus without complic ation, without long-term current use of insulin E11.9 ; ARIAS on CPAP G47.33 and Preoperative evaluation to rule out surgical contraindication Z01.818 [place] [address] [address] Feb, Paranoid schizophrenia F20.0 and Depress ion with anxiety F41.8 [facility] [address] [address] Jan, [facility] [address] [address] Jan, Paranoid schizophrenia F20.0 and Depress ion with anxiety F41.8 [facility] [address] [address] Jan, [facility] [address] [address] 14 Jan, 2016 Muscle strain T14.8 [facility] [address] [address] 10 Jan, 2016 Paranoid schizophrenia F20.0 [facility] [address] [address] 07 Jan, 2016 [facility] [address] [address] 05 Jan, 2016 Paranoid schizophrenia F20.0 and Depress ion with anxiety F41.8 [facility] [address] [address] 05 Jan, 2016 [facility] [address] [address] Jan, [facility] [address] [address] 28 Dec, 2015 [facility] [address] [address] 23 Dec, 2015 Paranoid schizophrenia F20.0 [facility] [address] [address] 16 Dec, 2015 Paranoid schizophrenia F20.0 and Depress ion with anxiety F41.8 [facility] [address] [address] 31 Nov, 2015 [facility] [address] [address] Nov, Paranoid schizophrenia F20.0 [place] [address] [address] Nov, Paranoid schizophrenia F20.0 and Depress ion with anxiety F41.8 [place] [address] [address] Nov, Type 2 diabetes mellitus without complic ation, without long-term current use of insulin E11.9 ; Paranoid schizophrenia F20.0 ; Chronic obstructive pulmonary disease, unspecified COPD type J44.9 ; Morbid obesity due to excess calories E66.01 and Parkinsonian tremor G20 [place] [address] [address] Nov, [place] [address] [address] Oct, Paranoid schizophrenia F20.0 [place] [address] [address] Oct, Paranoid schizophrenia F20.0 [place] [address] [address] Oct, Paranoid schizophrenia F20.0 and Depress ion with anxiety F41.8 [place] [address] [address] Oct, [place] [address] [address] Oct, Paranoid schizophrenia F20.0 and Depress ion with anxiety F41.8 [place] [address] [address] Oct, Nasal sore J34.89 [place] [address] [address] Oct, Type 2 diabetes mellitus without complic ation, without long-term current use of insulin E11.9 ; Depression with anxiety F41.8 ; Hypothyroidism, unspecified type E03.9 and History of lupus Z87.39 [place] [id number] [place] [address] Oct, [facility] [address] [address] Oct, Type 2 diabetes mellitus without complic [...] and History of lupus Z87.39 [facility] [address] [address] Feb, [facility] [address] [address] Jan, [facility] [address] [address] Jan, [facility] [address] [address] Jan, [facility] [address] [address] Dec, [facility] [address] [address] Nov, [facility] [address] [address] Nov, [facility] [address] [address] Oct, [facility] [address] [address] Oct, [facility] [address] [address] Oct, [facility] [address] [id number] [place] [address] 12 Sep, 2014 Allergic rhinitis 477.9 [facility] [address] [id number] [place] [address] 11 Sep, 2014 Rhinitis, allergic 477.9 [facility] [place] [facility] [address] [id number] [place] [address] 10 Sep, 2014 Rhinitis, allergic 477.9 [facility] [address] [id number] [place] [address] Sep, [facility] [place] [facility] [address] [id number] [place] [address] August, [facility] [place] [facility] [id number] [place] [address] August, [facility] [place] [facility] [address] [id number] [place] [address] August, [facility] [place] [facility] [address] [id number] [place] [address] 28 Jul, 2014 [facility] [place] [facility] [address] [id number] [place] [address] Jul, [facility] [place] [facility] [id number] [place] [address] 13 Jul, 2014 [facility] [place] [facility] [address] [id number] [place] [address] 16 Jun, 2014 [facility] [place] [facility] [address] [id number] [place] [address] 16 Jun, 2014 [facility] [place] [facility] [address] [id number] [place] [address] Jun, [facility] [place] [facility] [address] [id number] [place] [address] Jun, [facility] [place] [facility] [address] [id number] [place] [address] Jun, [facility] [place] [facility] [address] [id number] [place] [address] Jun, [facility] [place] [facility] [address] [id number] [place] [address] Jun, 2014 [facility] [place] [facility] [address] [id number] [place] [address] Jun, [facility] [place] [facility] [address] [id number] [place] [address] May, 2014 [facility] [place] [facility] [address] [id number] [place] [address] May, 2014 [facility] [place] [facility] [address] [id number] [place] [address] May, 2014 [facility] [place] [facility] [address] [id number] [place] [address] May, [facility] [place] [facility] [address] [id number] [place] [address] Apr, [facility] [place] [facility] [address] [id number] [place] [address] Mar, [facility] [place] [facility] [address] [id number] [place] [address] Mar, [facility] [place] [facility] [address] [id number] [place] [address] Mar, [facility] [place] [facility] [address] [id number] [place] [address] Mar, [facility] [place] [facility] [address] [id number] [place] [address] Mar, [facility] [place] [facility] [address] [id number] [place] [address] Mar, [facility] [place] [facility] [address] [id number] [place] [address] Mar, [facility] [place] [facility] [address] [id number] [place] [address] Mar, [facility] [place] [facility] [address] [id number] [place] [address] Mar, [facility] [place] [facility] [address] [id number] [place] [address] Feb, [facility] [place] [facility] [address] [facility] [id number] [place] [address] Feb, [facility] [place] [facility] [address] [facility] [id number] [place] [address] 17 Feb, 2014 [facility] [place] [facility] [address] [id number] [place] [address] 17 Feb, 2014 [facility] [place] [facility] [address] [id number] [place] [address] 14 Feb, 2014 [facility] [place] [facility] [address] [facility] [id number] [place] [address] 14 Feb, 2014 [facility] [place] [facility] [address] [id number] [place] [address] Feb, [facility] [place] [facility] [address] [id number] [place] [address] Feb, [facility] [place] [facility] [address] [id number] [place] [address] 23 Jan, 2014 [facility] [place] [facility] [address] [id number] [place] [address] 23 Jan, 2014 [facility] [place] [facility] [address] [id number] [place] [address] 16 Jan, 2014 [facility] [place] [facility] [address] [id number] [place] [address] 16 Jan, 2014 [facility] [place] [facility] [address] [id number] [place] [address] 15 Jan, 2014 [facility] [place] [facility] [address] [id number] [place] [address] 15 Jan, 2014 [facility] [place] [facility] [address] [id number] [place] [address] 14 Jan, 2014 [facility] [place] [facility] [address] [id number] [place] [address] 14 Jan, 2014 [facility] [place] [facility] [address] [id number] [place] [address] 14 Jan, 2014 [facility] [place] [facility] [address] [id number] [place] [address] 14 Jan, 2014 [facility] [place] [facility] [address] [id number] [facility] [address] 18 Dec, 2013 [facility] [place] [facility] [address] [facility] [id number] [place] [address] Dec, [facility] [place] [facility] [address] [id number] [facility] [place] [address] Dec, [facility] [place] [facility] [address] [facility] [id number] [facility] [address] Dec, [facility] [place] [facility] [address] [facility] [id number] [facility] [address] Nov, [facility] [place] [facility] [address] [id number] [place] [address] Nov, [facility] [place] [facility] [address] [id number] [place] [address] Nov, [facility] [place] [facility] [address] [id number] [place] [address] Nov, [facility] [place] [facility] [address] [id number] [place] [address] Nov, [facility] [place] [facility] [address] [id number] [place] [address] Oct, [facility] [place] [facility] [address] [id number] [place] [address] Oct, [facility] [place] [facility] [address] [id number] [place] [address] Oct, [facility] [place] [facility] [address] [facility] [id number] [place] [address] Oct, [facility] [place] [facility] [address] [id number] [place] [address] Sep, [facility] [place] [facility] [address] [id number] [place] [address] Sep, [facility] [place] [facility] [address] [id number] [place] [address] Sep, [facility] [place] [facility] [address] [id number] [place] [address] Sep, [facility] [place] [facility] [address] [id number] [place] [address] Sep, [facility] [place] [facility] [address] [facility] [id number] [place] [address] Sep, [facility] [place] [facility] [address] [facility] [id number] [place] [address] Sep, [facility] [place] [facility] [address] [id number] [place] [address] Sep, [facility] [place] [facility] [address] [id number] [place] [address] August, [facility] [place] [facility] [address] [facility] [id number] [place] [address] August, [facility] [place] [facility] [address] [id number] [place] [address] August, [facility] [place] [facility] [address] [id number] [place] [address] August, [facility] [place] [facility] [address] [id number] [place] [address] August, [facility] [place] [facility] [address] [id number] [place] [address] August, [facility] [place] [facility] [address] [id number] [place] [address] August, [facility] [place] [facility] [address] [id number] [place] [address] Jul, [facility] [place] [facility] [address] [id number] [place] [address] Jul, [facility] [place] [facility] [address] [id number] [place] [address] Jul, [facility] [place] [facility] [address] [facility] [id number] [place] [address] Jul, [facility] [place] [facility] [address] [facility] [id number] [place] [address] Jul, [facility] [place] [facility] [address] [facility] [id number] [facility] [place] [address] Jul, [facility] [place] [facility] [address] [facility] [id number] [place] [address] Jul, [facility] [place] [facility] [address] [facility] [id number] [facility] [place] [address] Jul, [facility] [place] [facility] [id number] [facility] [place] [address] Jul, [facility] [place] [facility] [address] [facility] [id number] [facility] [place] [address] Jul, [facility] [place] [facility] [id number] [facility] [place] [address] Jul, [facility] [place] [facility] [id number] [place] [address] Jul, [facility] [place] [facility] [id number] [place] [address] Jun, [facility] [place] [facility] [address] [facility] [id number] [facility] [place] [address] Jun, [facility] [place] [facility] [id number] [place] [address] Jun, [facility] [place] [facility] [id number] [place] [address] Jun, [facility] [place] [facility] [id number] [place] [address] Jun, [facility] [place] [facility] [address] [facility] [id number] [facility] [place] [address] May, [facility] [place] [facility] [address] [facility] [id number] [place] [address] May, [facility] [place] [facility] [id number] [place] [address] May, [facility] [place] [facility] [id number] [place] [address] May, [facility] [place] [facility] [id number] [place] [address] May, 2013 [facility] [place] [facility] [id number] [place] [address] May, 2013 [facility] [place] [facility] [id number] [place] [address] May, [facility] [place] [facility] [id number] [place] [address] May, [facility] [place] [facility] [id number] [place] [address] Mar, [facility] [place] [facility] [id number] [place] [address] Mar, [facility] [place] [facility] [id number] [place] [address] Mar, [facility] [place] [facility] [id number] [place] [address] Mar, [facility] [place] [facility] [id number] [place] [address] Mar, [facility] [place] [facility] [id number] [place] [address] Mar, [facility] [place] [facility] [id number] [place] [address] Feb, [facility] [place] [facility] [id number] [place] [address] Feb, [facility] [place] [facility] [id number] [place] [address] Jan, [facility] [place] [facility] [id number] [place] [address] Jan, [facility] [place] [facility] [id number] [place] [address] Jan, [facility] [place] [facility] [id number] [place] [address] Jan, [facility] [place] [facility] [id number] [place] [address] Jan, [facility] [place] [facility] [address] [id number] [place] [address] Jan, [facility] [id number] [place] [address] Jan, [facility] [id number] [place] [address] Jan, [facility] [id number] [place] [address] Jan, [facility] [address] [facility] [id number] [place] [address] Jan, [facility] [id number] [place] [address] Dec, [facility] [id number] [place] [address] Nov, [facility] [id number] [place] [address] Nov, [facility] [id number] [place] [address] Nov, [facility] [id number] [place] [address] Oct, [facility] [id number] [place] [address] Oct, [facility] [id number] [place] [address] August, [facility] [id number] [place] [address] Apr, [facility] [id number] [place] [address] Apr, [facility] [id number] [place] [address] Feb, [facility] [id number] [place] [address] Feb, [facility] [id number] [place] [address] Dec, [facility] [id number] [place] [address] Dec, [facility] [id number] [place] [address] Oct, [facility] [id number] [place] [address] Oct, [facility] [id number] [place] [address] Oct, [facility] [id number] [place] [address] Jul, IMMUNIZATIONS No Known Immunizations SOCIAL HISTORY [...] hospitalizations for psychosis/mental illness, last one in [facility] 4 years ago Hospitalization History broken ankle 08/2018
--- OUTSIDE RECORDS SUMMARY | 2019-07-07 04:03 | XMS REPORT ---
Author Author Alayna ROJAS Organization [facility] Address [address] [place] [address] Care Team Providers Care Surveillance Director Name Role Phone RADHA ROJAS Unavailable PROBLEMS Type Condition ICD9-CM Code [id number] Code Onset Dates Condition S tatus SNOMED Code Problem Type 2 diabetes mellitus wit hout complication, without long-term current use of insulin E11.9 Active 881527523 Problem Gastroesophageal reflux disease without esophagitis K21.9 Active 610252033 Problem History of lupus Z87.39 Active 312 539116 Problem Schizoaffective disorder, depressive type F25.1 Active 28005309 Problem Seasonal allergic rhinitis due to other allergic trigger J30.89 Active 763550623 Problem DM neuro manif type II E11.49 Active 20712700 Problem Primary insomnia F51.01 Active 397 2004 Problem Diabetic polyneuropathy associated with type 2 d iabetes mellitus E11.42 Active 138492826 Problem Chronic pain syndrome G89.4 Active 000897166 Problem 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, 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 Active 889066392 Problem Morbid obesity due to excess calories E66.01 Active 806565615 Problem OAB (overactive bladder) N32.81 Activ e 688139286 Problem Paranoid schizophrenia F20.0 Active 05424600 Problem Gastroesophageal reflux disease, esophagitis pre sence not specified K21.9 Active 072762821 Problem Tobacco abuse Z72.0 Active 528809 000 Problem Dyslipidemia E78.5 Active 7881432 07 Problem Migraine without aura and without status migrain osus, not intractable G43.009 Active 726663441 Problem Hypothyroidism (acquired) E03.9 Acti ve 839328275 Problem Essential hypertension I10 Active 76355996 Problem Seasonal allergic rhinitis due to pollen J30.1 Active 30377607 Problem Chronic obstructive pulmonary disease, unspecified COPD ty pe J44.9 Active 63351547 Problem COPD exacerbation J44.1 Active 19 5629005 Problem Depression with anxiety F41.8 Active 880120127 Problem Cigarette nicotine dependence without complication F17.210 Active 83263814 Problem Allergic rhinitis, unspecified seasonality, unspecifie d trigger J30.9 Active 31554139 Problem Constipation by delayed colonic transit K59.01 Active 72004203 Problem Constipation, unspecified constipation type K59.00 Active 23734045 Problem Other allergic rhinitis J30.89 Active 484155583 Problem Constipation, unspecified constipation type K59.00 Active 19517950 Problem Menopausal syndrome (hot flashes) N95.1 Active 405408513 Problem Other seasonal allergic rhinitis J30.2 Active 441385722 Problem BMI 31.0-31.9,adult Z68.31 Active 719840331 Problem Vaginal dryness, menopausal N95.1 Ac tive 60337662 Problem Diverticulitis K57.92 Active 11871 6006 Problem BMI 40.0-44.9, adult Z68.41 Active 500538056 ALLERGIES No Information ENCOUNTERS Encounter Location Date Diagnosis [facility] [address] [address] Jun, [facility] [address] [address] 11 May, 2019 [facility] [address] [address] May, [facility] [address] [address] Apr, [facility] [address] [address] Apr, Paranoid schizophrenia F20.0 [facility] [address] [address] Apr, [facility] [address] [address] Apr, [facility] [address] [facility] [place] [id number] [address] [place] [address] 07 Apr, 2019 Sore throat J02.9 and Non-re current acute suppurative otitis media of both ears without spontaneous rupture of tympanic membranes H66.003 [facility] [address] [address] Apr, [facility] [address] [address] Apr, [facility] [address] [address] Apr, Schizoaffective disorder, depressive typ e F25.1 [facility] [address] [address] Mar, Schizoaffective disorder, depressive typ e F25.1 [facility] [address] [address] Mar, [facility] [address] [facility] [place] 2[facility] [id number] [address] [place] [address] Mar, Acute nasopharyngitis J00 [facility] [address] [address] Mar, [facility] [address] [address] Mar, [facility] [address] [id number] Mar, Caries K02.9 [facility] [address] [id number] Feb, Dental examination Z01.20 and Caries K02 .9 [facility] [address] [address] Feb, Constipation, unspecified constipation t ype K59.00 ; Acute hemorrhoid K64.9 ; Tobacco abuse Z72.0 ; BMI 40.0-44.9, adult Z68.41 and Dyslipidemia E78.5 [facility] [address] [address] Feb, [facility] [address] [address] Feb, [facility] [address] [address] Feb, Constipation, unspecified constipation t ype K59.00 ; Left lower quadrant abdominal pain R10.32 ; Hypothyroidism (acquired) E03.9 ; Tobacco abuse Z72.0 and BMI 40.0-44.9, adult Z68.41 [place] [address] [address] Feb, [place] [address] [address] Feb, Chronic obstructive pulmonary disease, u nspecified COPD type J44.9 [place] [address] [address] Jan, [place] [address] [address] Jan, Paranoid schizophrenia F20.0 [place] [address] [address] Jan, [place] [address] [address] Jan, [place] [address] [address] Jan, Diverticulitis K57.92 and Diarrhea, unsp ecified type R19.7 [place] [address] [address] Jan, Paranoid schizophrenia F20.0 and Tobacco abuse Z72.0 [place] [address] [address] Jan, Paranoid schizophrenia F20.0 [place] [address] [address] Jan, Tobacco use Z72.0 [place] [address] [address] 14 Jan, 2019 Hypothyroidism (acquired) E03.9 and Type 2 diabetes mellitus without complication, without long-term current use of insulin E11.9 [place] [address] [address] 10 Jan, 2019 Paranoid schizophrenia F20.0 [place] [address] [address] Jan, [place] [address] [address] Jan, Chronic obstructive pulmonary disease, u nspecified COPD type J44.9 [place] [address] [address] Dec, [place] [address] [address] Dec, Schizoaffective disorder, depressive typ e F25.1 [place] [address] [address] Dec, [place] [address] [address] Dec, [place] [address] [address] Dec, Type 2 diabetes mellitus with diabetic [...] abuse Z72.0 and Encounter for immunization Z23 [place] [address] [address] Dec, Encounter for immunization Z23 [place] [address] [address] Dec, [place] [address] [address] Dec, [place] [address] [address] Dec, [facility] [address] [address] Dec, [facility] [address] [address] Dec, [facility] [address] [address] Dec, [facility] [address] [address] Nov, Paranoid schizophrenia F20.0 [facility] [address] [address] Nov, [facility] [address] [address] Nov, [facility] [address] [address] Nov, [facility] [address] [address] Nov, Encounter for comprehensive diabetic monique t examination, type 2 diabetes mellitus E11.9 and Morbid obesity E66.01 [facility] [address] [address] Nov, [facility] [address] [address] Nov, [facility] [address] [address] Nov, [facility] [address] [address] Nov, Schizoaffective disorder, depressive typ e F25.1 [facility] [address] [address] Nov, Constipation by delayed colonic transit K59.01 [facility] [address] [address] Oct, [facility] [address] [address] Oct, [facility] [address] [address] Oct, [facility] [address] [address] Oct, Chronic obstructive pulmonary disease, u nspecified COPD type J44.9 [facility] [address] [address] Oct, [facility] [address] [address] Sep, Paranoid schizophrenia F20.0 [facility] [address] [address] Sep, [facility] [address] [address] Sep, [facility] [address] [address] Sep, Encounter for immunization Z23 [facility] [address] [address] Sep, [facility] [address] [address] Sep, Closed fracture of right ankle, sequela S82.891S ; Morbid obesity E66.01 and Heat rash L74.0 [place] [address] [address] Sep, Schizoaffective disorder, depressive typ e F25.1 [facility] [address] [address] Sep, [facility] [address] [address] Sep, [facility] [address] [address] Sep, [facility] [address] [address] Sep, [facility] [address] [place] [id number] [place] [address] Sep, [facility] [address] [address] Sep, [facility] [address] [address] Sep, [facility] [address] [address] Sep, [facility] [address] [address] Sep, [facility] [address] [address] August, Paranoid schizophrenia F20.0 [facility] [address] [address] August, [facility] [address] [address] August, [facility] [address] [address] August, [facility] [address] [address] August, Type 2 diabetes mellitus without complic ation, without long-term current use of insulin E11.9 ; Closed fracture of right ankle, initial encounter S82.891A ; Constipation by delayed colonic transit K59.01 ; Osteoporosis with pathological fracture, initial encounter M80.00XA ; Encounter for immunization Z23 and Morbid obesity E66.01 [facility] [address] [place] [id number] [place] [address] August, [facility] [address] [address] August, [facility] [address] [address] August, Acquired deformity of musculoskeletal sy stem, unspecified M95.9 [facility] [address] [address] August, Paranoid schizophrenia F20.0 [facility] [address] [id number] [place] [address] August, [place] [address] [address] Jul, [place] [address] [address] Jul, Diabetic polyneuropathy associated with type 2 diabetes mellitus E11.42 ; Paranoid schizophrenia F20.0 ; Preoperative clearance Z01.818 and Morbid obesity E66.01 [place] [address] [address] Jul, Paranoid schizophrenia F20.0 [place] [address] [address] Jul, [place] [address] [address] Jul, [place] [address] [address] Jul, Cigarette nicotine dependence without co mplication F17.210 [place] [address] [address] Jul, Type 2 diabetes mellitus without complic ation, without long-term current use of insulin E11.9 and Hypothyroidism (acquired) E03.9 [place] [address] [address] Jul, Encounter for Medicare annual wellness e xam Z00.00 ; Morbid obesity due to excess calories E66.01 ; Diabetic polyneuropathy associated with type 2 diabetes mellitus E11.42 ; Chronic obstructive pulmonary disease, unspecified COPD type J44.9 ; Schizoaffective disorder, depressive type F25.1 ; Hypothyroidism (acquired) E03.9 and Morbid obesity E66.01 [place] [address] [address] Jun, Gastroesophageal reflux disease without esophagitis K21.9 [place] [address] [address] 28 Jun, 2018 Paranoid schizophrenia F20.0 [place] [address] [address] Jun, Schizoaffective disorder, depressive typ e F25.1 [place] [address] [address] Jun, [place] [address] [address] Jun, Schizoaffective disorder, depressive typ e F25.1 [place] [address] [address] Jun, Cigarette nicotine dependence without co mplication F17.210 [place] [address] [address] Jun, Type 2 diabetes mellitus without complic ation, without long-term current use of insulin E11.9 [place] [address] [address] Jun, [place] [address] [address] Jun, [place] [address] [address] Jun, [place] [address] [address] Jun, [place] [address] [address] Jun, [place] [address] [address] Jun, Paranoid schizophrenia F20.0 ; Type 2 di abetes mellitus without complication, without long-term current use of insulin E11.9 ; Hypothyroidism (acquired) E03.9 and Morbid obesity E66.01 [place] [address] [address] May, Paranoid schizophrenia F20.0 [place] [address] [address] 20 May, 2018 Hypothyroidism (acquired) E03.9 and Dysl ipidemia E78.5 [place] [address] [address] May, Cigarette nicotine dependence without co mplication F17.210 [place] [address] [address] May, [place] [address] [address] 14 May, 2018 Type 2 diabetes mellitus without complic ation, without long-term current use of insulin E11.9 ; Essential hypertension I10 ; Hypothyroidism (acquired) E03.9 and Dyslipidemia E78.5 [place] [address] [address] 13 May, 2018 [place] [address] [address] May, Schizoaffective disorder, depressive typ e F25.1 [place] [address] [address] May, Paranoid schizophrenia F20.0 [place] [address] [address] May, [facility] [address] [place] [address] 07 May, 19 [place] [address] [address] May, [place] [address] [address] May, Type 2 diabetes mellitus without complic ation, without long-term current use of insulin E11.9 ; Essential hypertension I10 ; Hypothyroidism (acquired) E03.9 and Dyslipidemia E78.5 [place] [address] [address] May, [place] [address] [address] 04 May, 2018 Acute nasopharyngitis J00 [facility] [address] [facility] [place] 2[facility] [id number] [address] [place] [address] 04 May, 2018 Allergic rhinitis, unspecifi ed seasonality, unspecified trigger J30.9 [facility] [address] [address] May, [facility] [address] [address] Apr, Schizoaffective disorder, depressive typ e F25.1 [place] [address] [address] Apr, [place] [address] [address] Apr, Cigarette nicotine dependence without co mplication F17.210 [place] [address] [address] Apr, [place] [address] [address] Apr, Cigarette nicotine dependence without co mplication F17.210 [place] [address] [address] Apr, [place] [address] [address] Apr, Migraine without aura and without status migrainosus, not intractable G43.009 [place] [address] [address] Apr, Migraine without aura and without status migrainosus, not intractable G43.009 [place] [address] [address] Mar, Schizoaffective disorder, depressive typ e F25.1 ; BMI 45.0-49.9, adult Z68.42 and BMI 40.0-44.9, adult Z68.41 [place] [address] [address] 13 Mar, 2018 Primary insomnia F51.01 [place] [address] [address] Mar, [place] [address] [address] 14 Feb, 2018 Primary insomnia F51.01 [place] [address] [address] 08 Feb, 2018 [place] [address] [address] Jan, Schizoaffective disorder, depressive typ e F25.1 and BMI 45.0-49.9, adult Z68.42 [place] [address] [address] Jan, [place] [address] [address] Jan, Type 2 diabetes mellitus with diabetic n europathic arthropathy, 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 ; Menopausal syndrome (hot flashes) N95.1 ; BMI 40.0-44.9, adult Z68.41 and Morbid obesity E66.01 [place] [address] [address] Jan, Paranoid schizophrenia F20.0 [place] [address] [address] Jan, [place] [address] [address] Jan, Schizoaffective disorder, depressive typ e F25.1 [place] [address] [address] Jan, [place] [address] [address] Jan, Chronic obstructive pulmonary disease, u nspecified COPD type J44.9 ; BMI 45.0-49.9, adult Z68.42 ; Type 2 diabetes mellitus without complication, without long-term current use of insulin E11.9 ; Hypothyroidism (acquired) E03.9 ; Encounter for immunization Z23 ; Gastroesophageal reflux disease without esophagitis K21.9 ; Primary insomnia F51.01 and Acute nasopharyngitis J00 [facility] [address] [address] 27 Dec, 2017 [facility] [address] [address] 21 Dec, 2017 Schizoaffective disorder, depressive typ e F25.1 and BMI 45.0-49.9, adult Z68.42 [facility] [address] [address] 21 Dec, 2017 [place] [address] [address] 18 Dec, 2017 [facility] [address] [address] 18 Dec, 2017 Acute non-recurrent frontal sinusitis J0 1.10 [facility] [address] [address] 18 Dec, 2017 Acute non-recurrent frontal sinusitis J0 1.10 ; Weakness of left leg R29.898 ; At high risk for falls Z91.81 and BMI 45.0-49.9, adult Z68.42 [place] [address] [address] 17 Dec, 2017 [facility] [address] [address] 17 Dec, 2017 [facility] [address] [address] 10 Dec, 2017 Schizoaffective disorder, depressive typ e F25.1 [facility] [address] [facility] [id number] [address] [place] [address] 10 Dec, 2017 Acute nasopharyngitis J00 [facility] [address] [address] Dec, Schizoaffective disorder, depressive typ e F25.1 [place] [address] [address] Dec, [place] [address] [address] Nov, Schizoaffective disorder, depressive typ e F25.1 and BMI 45.0-49.9, adult Z68.42 [place] [address] [address] Nov, [place] [address] [address] Nov, [place] [address] [address] Nov, Schizoaffective disorder, depressive typ e F25.1 [place] [address] [address] Nov, Well woman exam Z01.419 ; BMI 45.0-49.9, adult Z68.42 ; Screening breast examination Z12.31 and Dietary counseling and surveillance Z71.3 [place] [address] [address] Nov, Paranoid schizophrenia F20.0 [place] [address] [address] Nov, Gastroesophageal reflux disease, esophag itis presence not specified K21.9 [place] [address] [address] Oct, Paranoid schizophrenia F20.0 [facility] [id number] [place] [address] Oct, Chronic pain syndrome G89.4 and Schizoaffective disorder, depressive type F25.1 [place] [address] [address] Oct, Chronic pain syndrome G89.4 and Schizoaf fective disorder, depressive type F25.1 [place] [address] [address] 16 Oct, 2017 Type 2 diabetes mellitus without complic ation, without long-term current use of insulin E11.9 [place] [address] [address] Oct, Essential hypertension I10 and DM neuro manif type II E11.[address] [address] Oct, [address] [address] Oct, Schizoaffective disorder, depressive typ e F25.1 and BMI 45.0-49.9, adult Z68.[address] [address] Oct, [address] [address] Oct, Paranoid schizophrenia F20.[address] [address] Oct, Type 2 diabetes mellitus with diabetic n europathic arthropathy, 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 ; Essential hypertension I10 ; Hypothyroidism (acquired) E03.9 ; Chronic obstructive pulmonary disease, unspecified COPD type J44.9 and Diabetic polyneuropathy associated with type 2 diabetes mellitus E11.[address] [address] Sep, Paranoid schizophrenia F20.[address] [address] Sep, Paranoid schizophrenia F20.0 and BMI 45. 0-49.9, adult Z68.[address] [address] Sep, Schizoaffective disorder, depressive typ e F25.[address] [address] Sep, [facility] [address] [address] Sep, Paranoid schizophrenia F20.0 [facility] [address] [address] Sep, [facility] [address] [address] Sep, Hypothyroidism (acquired) E03.9 [facility] [address] [address] Sep, [place] [address] [address] August, Schizoaffective disorder, depressive typ e F25.1 [place] [address] [address] August, [place] [address] [address] August, [facility] [address] [address] August, [facility] [address] [address] August, Paranoid schizophrenia F20.0 [place] [address] [address] August, History of lupus Z87.39 and Chronic pain syndrome G89.4 [facility] [address] [address] August, [facility] [address] [facility] [place] [id number] [address] [address] August, Seasonal allergic rhinitis, unspecified trigger J30.2 and BMI 45.0-49.9, adult Z68.42 [facility] [address] [address] Jul, Schizoaffective disorder, depressive typ e F25.1 [place] [address] [address] Jul, [facility] [address] [address] 13 Jul, 2017 Hypothyroidism (acquired) E03.9 [facility] [address] [address] 11 Jul, 2017 Chronic obstructive pulmonary disease, u nspecified COPD type J44.9 and Type 2 diabetes mellitus without complication, without long-term current use of insulin E11.9 [facility] [address] [address] Jul, Paranoid schizophrenia F20.0 [place] [address] [address] Jun, Hypothyroidism (acquired) E03.9 and Seas onal allergic rhinitis due to pollen J30.1 [facility] [address] [facility] [place]NOTE 2] [id number] [address] [place] [address] Jun, Shortness of breath at rest R06.02 ; COPD exacerbation J44.1 and BMI 45.0-49.9, adult Z68.42 [place] [address] [address] Jun, [facility] [address] [address] Jun, Paranoid schizophrenia F20.0 ; Depressio n with anxiety F41.8 and BMI 45.0-49.9, adult Z68.42 [facility] [address] [address] Jun, Schizoaffective disorder, depressive typ e F25.1 [facility] [id number] [place] [id number] Jun, Dental caries K02.9 [facility] [address] [address] Jun, Paranoid schizophrenia F20.0 [facility] [address] [address] May, Migraine without aura and without status migrainosus, not intractable G43.009 ; DM neuro manif type II E11.49 and Type 2 diabetes mellitus without complication, without long-term current use of insulin E11.9 [facility] [address] [address] May, Migraine without aura and without status migrainosus, not intractable G43.009 [facility] [address] [address] May, Depression with anxiety F41.8 [facility] [id number] [place] [id number] May, [facility] [address] [address] May, [facility] [address] [address] May, [facility] [address] [address] May, Hypothyroidism (acquired) E03.9 [place] [address] [address] May, Paranoid schizophrenia F20.0 [facility] [address] [address] May, Type 2 diabetes mellitus without complic [...] N32.81 and Controlled substance agreement signed Z79.899 [facility] [address] [address] [place] [address] May, Controlled substance agreement signed Z7 9.899 [facility] [id number] [place] [address] Apr, [facility] [address] [id number] [place] [id number] Apr, Dental examination Z01.20 [facility] [address] [address] Apr, Paranoid schizophrenia F20.0 [facility] [address] [address] Apr, Hypertension, unspecified type I10 [facility] [address] [address] Apr, Paranoid schizophrenia F20.0 [facility] [address] [address] Apr, [facility] [address] [address] Apr, Tobacco abuse Z72.0 [facility] [id number] [place] [address] Apr, [facility] [address] [address] Mar, [facility] [address] [address] Mar, Paranoid schizophrenia F20.0 and BMI 45. 0-49.9, adult Z68.42 [facility] [address] [address] Mar, Schizoaffective disorder, depressive typ e F25.1 [facility] [address] [address] Mar, [facility] [address] [address] Mar, Schizoaffective disorder, depressive typ e F25.1 [place] [address] [address] Mar, Hypothyroidism, unspecified type E03.9 [facility] [address] [facility] [id number] [address] [place] [address] Feb, Gastroenteritis K52.9 and BM I 45.0-49.9, adult Z68.42 [place] [address] [address] Feb, [place] [address] [address] Feb, [address] [address] Feb, [place] [address] [address] Feb, [address] [address] Feb, Paranoid schizophrenia F20.[address] [address] 06 Feb, 2017 Gastroesophageal reflux disease without esophagitis K21.9 ; Other seasonal allergic rhinitis J30.2 ; Other allergic rhinitis J30.89 ; Tobacco abuse Z72.0 and BMI 40.0-44.9, adult Z68.[address] [address] Feb, Onychomycosis B35.1 ; Callus of foot L84 and DM neuro manif type II E11.49 [place] [address] [address] Jan, Chronic allergic rhinitis J30.[address] [address] Jan, [address] [address] Jan, Schizoaffective disorder, depressive typ e F25.1 [id number] [place] [address] 10 Jan, 2017 [facility] [id number] [place] [address] 07 Jan, 2017 Sore throat J02.9 and Season al allergic rhinitis due to other allergic trigger J30.89 [place] [address] [address] Jan, [place] [address] [address] Jan, [facility] [address] [address] [address] Jan, Chronic allergic rhinitis J3 0.9 [place] [address] [address] 27 Dec, 2016 Paranoid schizophrenia F20.0 ; Primary i nsomnia F51.01 and Schizoaffective disorder, depressive type F25.1 [place] [address] [address] Dec, Chronic pain syndrome G89.4 ; Cervicalgi a of mxttodxs-wnhpzpw-hemzy region M54.2 ; Menopausal syndrome (hot flashes) N95.1 and Encounter for immunization Z23 [place] [address] [address] 14 Dec, 2016 [place] [address] [address] 13 Dec, 2016 [place] [address] [address] 08 Dec, 2016 Paranoid schizophrenia F20.0 [place] [address] [address] Dec, Schizoaffective disorder, depressive typ e F25.1 [place] [address] [address] Nov, Hypothyroidism, unspecified type E03.9 [facility] [address] [place] [address] Nov, Acute seasonal allergic rhin itis due to other allergen J30.89 [place] [address] [address] Nov, [place] [address] [address] Nov, Hypothyroidism, unspecified type E03.9 a nd Other elevated white blood cell (WBC) count D72.828 [place] [address] [address] Nov, Schizoaffective disorder, depressive typ e F25.1 [place] [address] [address] Nov, Paranoid schizophrenia F20.0 [place] [address] [address] Nov, Type 2 diabetes mellitus without complic ation, without long-term current use of insulin E11.9 ; Morbid obesity due to excess calories E66.01 and Chronic pain syndrome G89.4 [place] [address] [address] Oct, Paranoid schizophrenia F20.0 [place] [address] [address] Oct, [place] [address] [address] Oct, Schizoaffective disorder, depressive typ e F25.1 [place] [address] [address] Oct, Hypothyroidism, unspecified type E03.9 a nd Other elevated white blood cell (WBC) count D72.828 [place] [address] [address] Oct, Morbid obesity due to excess calories E6 6.01 ; Chronic obstructive pulmonary disease, unspecified COPD type J44.9 ; History of lupus Z87.39 ; Hypothyroidism, unspecified type E03.9 ; Gastroesophageal reflux disease without esophagitis K21.9 ; Primary insomnia F51.01 and Chronic pain syndrome G89.4 [facility] [address] [address] 30 Sep, 2016 [facility] [address] [address] Sep, [facility] [address] [address] Sep, [facility] [address] [address] Sep, Paranoid schizophrenia F20.0 [facility] [address] [address] Sep, [facility] [address] [address] Sep, Paranoid schizophrenia F20.0 [facility] [address] [address] Sep, [facility] [address] [address] August, Paranoid schizophrenia F20.0 [facility] [address] [address] Jul, [facility] [address] [address] Jul, Type 2 diabetes mellitus without complic ation, without long-term current use of insulin E11.9 ; Morbid obesity due to excess calories E66.01 ; Depression with anxiety F41.8 ; Hypothyroidism, unspecified type E03.9 ; Seasonal allergic rhinitis due to other allergic trigger J30.89 ; Pain, dental K08.89 and Gastroesophageal reflux disease without esophagitis K21.9 [facility] [address] [id number] [place] [id number] Jul, Dental examination Z01.20 [facility] [address] [address] Jul, Paranoid schizophrenia F20.0 [place] [address] [address] 13 Jun, 2016 Paranoid schizophrenia F20.0 and Depress ion with anxiety F41.8 [place] [address] [address] Jun, Paranoid schizophrenia F20.0 and Depress ion with anxiety F41.8 [place] [address] [address] Jun, [place] [address] [address] Jun, [facility] [address] [address] Jun, Seasonal allergic rhinitis d ue to other allergic trigger J30.89 [facility] [address] [address] May, Sore throat J02.9 ; Other vi ral agents as the cause of diseases classified elsewhere B97.89 and Acute upper respiratory infection, unspecified J06.[address] [address] May, Paranoid schizophrenia F20.0 and Depress ion with anxiety F41.8 [place] [address] [address] Apr, Other seasonal allergic rhinitis J30.2 [place] [address] [address] Apr, Paranoid schizophrenia F20.0 and Depress ion with anxiety F41.8 [facility] [address] [address] Apr, Bronchitis J40 and Sore thro at J02.9 [address] [address] [address] Apr, Type 2 diabetes mellitus without complic ation, without long-term current use of insulin E11.9 [facility] [address] [facility] [place] [id number] [address] [place] [address] Apr, Bronchitis J40 [place] [address] [address] Apr, [facility] [address] [address] Apr, [address] [address] [address] Mar, Type 2 diabetes mellitus without complic [...] R60.9 and Other seasonal allergic rhinitis J30.2 [place] [address] [address] Mar, Paranoid schizophrenia F20.0 and Depress ion with anxiety F41.8 [place] [address] [address] Feb, [place] [address] [address] Feb, [place] [address] [address] Feb, [place] [address] [address] Feb, [place] [address] [address] Feb, Type 2 diabetes mellitus without complic ation, without long-term current use of insulin E11.9 ; ARIAS on CPAP G47.33 and Preoperative evaluation to rule out surgical contraindication Z01.818 [address] [address] [address] Feb, Paranoid schizophrenia F20.0 and Depress ion with anxiety F41.8 [facility] [address] [address] Jan, [facility] [address] [address] Jan, Paranoid schizophrenia F20.0 and Depress ion with anxiety F41.8 [facility] [address] [address] Jan, [facility] [address] [address] 14 Jan, 2016 Muscle strain T14.8 [facility] [address] [address] 10 Jan, 2016 Paranoid schizophrenia F20.0 [facility] [address] [address] 07 Jan, 2016 [facility] [address] [address] 05 Jan, 2016 Paranoid schizophrenia F20.0 and Depress ion with anxiety F41.8 [facility] [address] [address] 05 Jan, 2016 [facility] [address] [address] Jan, [facility] [address] [address] 28 Dec, 2015 [facility] [address] [address] 23 Dec, 2015 Paranoid schizophrenia F20.0 [facility] [address] [address] 16 Dec, 2015 Paranoid schizophrenia F20.0 and Depress ion with anxiety F41.8 [facility] [address] [address] 31 Nov, 2015 [facility] [address] [address] Nov, Paranoid schizophrenia F20.0 [place] [address] [address] Nov, Paranoid schizophrenia F20.0 and Depress ion with anxiety F41.8 [place] [address] [address] Nov, Type 2 diabetes mellitus without complic ation, without long-term current use of insulin E11.9 ; Paranoid schizophrenia F20.0 ; Chronic obstructive pulmonary disease, unspecified COPD type J44.9 ; Morbid obesity due to excess calories E66.01 and Parkinsonian tremor G20 [address] [address] [address] Nov, [place] [address] [address] Oct, Paranoid schizophrenia F20.0 [place] [address] [address] Oct, Paranoid schizophrenia F20.0 [address] [address] [address] Oct, Paranoid schizophrenia F20.0 and Depress ion with anxiety F41.8 [address] [address] [address] Oct, [address] [address] [address] Oct, Paranoid schizophrenia F20.0 and Depress ion with anxiety F41.8 [address] [address] [address] Oct, Nasal sore J34.89 [place] [address] [address] Oct, Type 2 diabetes mellitus without complic ation, without long-term current use of insulin E11.9 ; Depression with anxiety F41.8 ; Hypothyroidism, unspecified type E03.9 and History of lupus Z87.39 [place] [id number] [place] [address] Oct, [facility] [address] [address] Oct, Type 2 diabetes mellitus without complic [...] edema R60.9 and History of lupus Z87.39 [facility] [address] [address] Feb, [facility] [address] [address] Jan, [facility] [address] [address] Jan, [facility] [address] [address] Jan, [facility] [address] [address] Dec, [facility] [address] [address] Nov, [facility] [address] [address] Nov, [facility] [address] [address] Oct, [facility] [address] [address] Oct, [facility] [address] [address] Oct, [facility] [address] [id number] [place] [address] 12 Sep, 2014 Allergic rhinitis 477.9 [facility] [address] [id number] [place] [address] 11 Sep, 2014 Rhinitis, allergic 477.9 [facility] [place] [facility] [address] [id number] [place] [address] 10 Sep, 2014 Rhinitis, allergic 477.9 [facility] [address] [id number] [place] [address] Sep, [facility] [place] [facility] [address] [id number] [place] [address] August, [facility] [place] [facility] [id number] [place] [address] August, [facility] [place] [facility] [address] [id number] [place] [address] August, [facility] [place] [facility] [address] [id number] [place] [address] 28 Jul, 2014 [facility] [place] [facility] [address] [id number] [place] [address] Jul, [facility] [place] [facility] [id number] [place] [address] 13 Jul, 2014 [facility] [place] [facility] [address] [id number] [place] [address] 16 Jun, 2014 [facility] [place] [facility] [address] [id number] [place] [address] 16 Jun, 2014 [facility] [place] [facility] [address] [id number] [place] [address] Jun, [facility] [place] [facility] [address] [id number] [place] [address] Jun, [facility] [place] [facility] [address] [id number] [place] [address] Jun, [facility] [place] [facility] [address] [id number] [place] [address] Jun, [facility] [place] [facility] [address] [id number] [place] [address] Jun, 2014 [facility] [place] [facility] [address] [id number] [place] [address] Jun, [facility] [place] [facility] [address] [id number] [place] [address] May, 2014 [facility] [place] [facility] [address] [id number] [place] [address] May, 2014 [facility] [place] [facility] [address] [id number] [place] [address] May, 2014 [facility] [place] [facility] [address] [id number] [place] [address] May, [facility] [place] [facility] [address] [id number] [place] [address] Apr, [facility] [place] [facility] [address] [id number] [place] [address] Mar, [facility] [place] [facility] [address] [id number] [place] [address] Mar, [facility] [place] [facility] [address] [id number] [place] [address] Mar, [facility] [place] [facility] [address] [id number] [place] [address] Mar, [facility] [place] [facility] [address] [id number] [place] [address] Mar, [facility] [place] [facility] [address] [id number] [place] [address] Mar, [facility] [place] [facility] [address] [id number] [place] [address] Mar, [facility] [place] [facility] [address] [id number] [place] [address] Mar, [facility] [place] [facility] [address] [id number] [place] [address] Mar, [facility] [place] [facility] [address] [id number] [place] [address] Feb, [facility] [place] [facility] [address] [facility] [id number] [place] [address] Feb, [facility] [place] [facility] [address] [facility] [id number] [place] [address] 17 Feb, 2014 [facility] [place] [facility] [address] [id number] [place] [address] 17 Feb, 2014 [facility] [place] [facility] [address] [id number] [place] [address] 14 Feb, 2014 [facility] [place] [facility] [address] [facility]] [id number] [place] [address] 14 Feb, 2014 [facility] [place] [facility] [address] [id number] [place] [address] Feb, [facility] [place] [facility] [address] [id number] [place] [address] Feb, [facility] [place] [facility] [address] [id number] [place] [address] 23 Jan, 2014 [facility] [place] [facility] [address] [id number] [place] [address] 23 Jan, 2014 [facility] [place] [facility] [address] [id number] [place] [address] 16 Jan, 2014 [facility] [place] [facility] [address] [id number] [place] [address] 16 Jan, 2014 [facility] [place] [facility] [address] [id number] [place] [address] 15 Jan, 2014 [facility] [place] [facility] [address] [id number] [place] [address] 15 Jan, 2014 [facility] [place] [facility] [address] [id number] [place] [address] 14 Jan, 2014 [facility] [place] [facility] [address] [id number] [place] [address] 14 Jan, 2014 [facility] [place] [facility] [address] [id number] [place] [address] 14 Jan, 2014 [facility] [place] [facility] [address] [id number] [place] [address] 14 Jan, 2014 [facility] [place] [facility] [address] [id number] [place] [address] 18 Dec, 2013 [facility] [place] [facility] [address] [facility] [id number] [place] [address] Dec, [facility] [place] [facility] [address] [id number] [place] [address] Dec, [facility] [place] [facility] [address] [facility] [id number] [place] [address] Dec, [facility] [place] [facility] [address] [facility] [id number] [place] [address] Nov, [facility] [place] [facility] [address] [id number] [place] [address] Nov, [facility] [place] [facility] [address] [id number] [place] [address] Nov, [facility] [place] [facility] [address] [id number] [place] [address] Nov, [facility] [place] [facility] [address] [id number] [place] [address] Nov, [facility] [place] [facility] [address] [id number] [place] [address] Oct, [facility] [place] [facility] [address] [id number] [place] [address] Oct, [facility] [place] [facility] [address] [id number] [place] [address] Oct, [facility] [place] [facility] [address] [facility] [id number] [place] [address] Oct, [facility] [place] [facility] [address] [id number] [place] [address] Sep, [facility] [place] [facility] [address] [id number] [place] [address] Sep, [facility] [place] [facility] [address] [id number] [place] [address] Sep, [facility] [place] [facility] [address] [id number] [place] [address] Sep, [facility] [place] [facility] [address] [id number] [place] [address] Sep, [facility] [place] [facility] [address] [id number] [place] [address] Sep, [facility] [place] [facility] [address] [id number] [place] [address] Sep, [facility] [place] [facility] [address] [id number] [place] [address] Sep, [facility] [place] [facility] [address] [id number] [place] [address] August, [facility] [place] [facility] [address] [id number] [place] [address] August, [facility] [place] [facility] [address] [id number] [place] [address] August, [facility] [place] [facility] [address] [id number] [place] [address] August, [facility] [place] [facility] [address] [id number] [place] [address] August, [facility] [place] [facility] [address] [id number] [place] [address] August, [facility] [place] [facility] [address] [id number] [place] [address] August, [facility] [place] [facility] [address] [id number] [place] [address] Jul, [facility] [place] [facility] [address] [id number] [place] [address] Jul, [facility] [place] [facility] [address] [id number] [place] [address] Jul, [facility] [place] [facility] [address] [id number] [place] [address] Jul, [facility] [place] [facility] [address] [id number] [place] [address] Jul, [facility] [place] [facility] [address] [facility] [place] [id number] [place] [address] Jul, [facility] [place] [facility] [address] [facility] [place]] [id number] [place] [address] Jul, [facility] [place] [facility] [address] [facility] [place] [id number] [place] [address] Jul, [facility] [place] [facility] [address] [id number] [place] [address] Jul, [facility] [place] [facility] [address] [facility] [place] [place]] [id number] [place] [address] Jul, [facility] [place] [facility] [address] [id number] [place] [address] Jul, [facility] [place] [facility] [address] [id number] [place] [address] Jul, [facility] [place] [facility] [address] [id number] [place] [address] Jun, [facility] [place] [facility] [address] [facility] [place] [id number] [place] [address] Jun, [facility] [place] [facility] [address] [id number] [place] [address] Jun, [facility] [place] [facility] [address] [id number] [place] [address] Jun, [facility] [place] [facility] [address] [id number] [place] [address] Jun, [facility] [place] [facility] [address] [facility] [place] [id number] [place] [address] May, [facility] [place] [facility] [address] [facility] [place]] [id number] [place] [address] May, [facility] [place] [facility] [address] [id number] [place] [address] May, [facility] [place] [facility] [address] [id number] [place] [address] May, [facility] [place] [facility] [address] [id number] [place] [address] May, 2013 [facility] [place] [facility] [address] [id number] [place] [address] May, 2013 [facility] [place] [facility] [address] [id number] [place] [address] May, [facility] [place] [facility] [address] [id number] [place] [address] May, [facility] [place] [facility] [id number] [place] [id number] Mar, [facility] [address] [id number] [place] [address] Mar, [facility] [id number] [place] [address] Mar, [facility] [id number] [place] [address] Mar, [facility] [id number] [place] [address] Mar, [facility] [address] [id number] [place] [address] Mar, [facility] [id number] [place] [address] Feb, [facility] [address] [id number] [place] [address] Feb, [facility] [id number] [place] [address] Jan, [facility] [address] [id number] [place] [address] Jan, [facility] [id number] [place] [address] Jan, [facility] [address] [id number] [place] [address] Jan, [facility] [id number] [place] [address] Jan, [facility] [address] [id number] [place] [address] Jan, [facility] [address] [id number] [place] [address] Jan, [facility] [address] [id number] [place] [address] Jan, [facility] [address] [id number] [place] [address] Jan, [facility] [address] [facility] [place] [facility] [id number] [place] [address] Jan, [facility] [address] [id number] [place] [address] Dec, [facility] [address] [id number] [place] [address] Nov, [facility] [address] [id number] [place] [address] Nov, [facility] [address] [id number] [place] [address] Nov, [facility] [address] [id number] [place] [address] Oct, [facility] [address] [id number] [place] [address] Oct, [facility] [address] [id number] [place] [address] August, [facility] [address] [id number] [place] [address] Apr, [facility] [address] [id number] [place] [address] Apr, [facility] [address] [id number] [place] [address] Feb, [facility] [address] [id number] [place] [address] Feb, [facility] [address] [id number] [place] [address] Dec, [facility] [address] [id number] [place] [address] Dec, [facility] [address] [id number] [place] [address] Oct, [facility] [address] [id number] [place] [address] Oct, [facility] [address] [id number] [place] [address] Oct, [facility] [address] [id number] [place] [address] Jul, IMMUNIZATIONS No Known Immunizations SOCIAL HISTORY [...] hospitalizations for psychosis/mental illness, last one in [facility] 4 years ago Hospitalization History broken ankle 08/2018
--- OUTSIDE RECORDS SUMMARY | 2019-07-07 04:04 | XMS REPORT ---
Author Author Alayna Hewitt [facility] Address [address] [place] [address] Care Team Providers Care Learning And Development Director Name Role Phone RODO Hewitt Unavailable PROBLEMS Type Condition ICD9-CM Code ULS91-MI Code Onset Dates Condition S tatus SNOMED Code Problem Type 2 diabetes mellitus wit hout complication, without long-term current use of insulin E11.9 Active 046232429 Problem Gastroesophageal reflux disease without esophagitis K21.9 Active 631064193 Problem History of lupus Z87.39 Active 312 019589 Problem Schizoaffective disorder, depressive type F25.1 Active 84784501 Problem Seasonal allergic rhinitis due to other allergic trigger J30.89 Active 102231608 Problem DM neuro manif type II E11.49 Active 97397330 Problem Primary insomnia F51.01 Active 397 2004 Problem Diabetic polyneuropathy associated with type 2 d iabetes mellitus E11.42 Active 565377770 Problem Chronic pain syndrome G89.4 Active 792746134 Problem 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, 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 Active 426661313 Problem Morbid obesity due to excess calories E66.01 Active 870759269 Problem OAB (overactive bladder) N32.81 Activ e 595545953 Problem Paranoid schizophrenia F20.0 Active 48567599 Problem Gastroesophageal reflux disease, esophagitis pre sence not specified K21.9 Active 456288347 Problem Tobacco abuse Z72.0 Active 652586 000 Problem Dyslipidemia E78.5 Active 3444835 07 Problem Migraine without aura and without status migrain osus, not intractable G43.009 Active 618130127 Problem Hypothyroidism (acquired) E03.9 Acti ve 377759207 Problem Essential hypertension I10 Active 87302149 Problem Seasonal allergic rhinitis due to pollen J30.1 Active 74958944 Problem Chronic obstructive pulmonary disease, unspecified COPD ty pe J44.9 Active 13864995 Problem COPD exacerbation J44.1 Active 19 1154597 Problem Depression with anxiety F41.8 Active 398212817 Problem Cigarette nicotine dependence without complication F17.210 Active 65623079 Problem Allergic rhinitis, unspecified seasonality, unspecifie d trigger J30.9 Active 18926909 Problem Constipation by delayed colonic transit K59.01 Active 59999193 Problem Constipation, unspecified constipation type K59.00 Active 81956803 Problem Other allergic rhinitis J30.89 Active 478380092 Problem Constipation, unspecified constipation type K59.00 Active 29641391 Problem Menopausal syndrome (hot flashes) N95.1 Active 003379228 Problem Other seasonal allergic rhinitis J30.2 Active 234259790 Problem BMI 31.0-31.9,adult Z68.31 Active 020502241 Problem Vaginal dryness, menopausal N95.1 Ac tive 28789894 Problem Diverticulitis K57.92 Active 88249 6006 Problem BMI 40.0-44.9, adult Z68.41 Active 367997727 ALLERGIES No Information ENCOUNTERS Encounter Location Date Diagnosis [facility] [address] [address] Jun, [facility] [address] [address] 11 May, 2019 [facility] [address] [address] May, [facility] [address] [address] Apr, [facility] [address] [address] Apr, Paranoid schizophrenia F20.0 [facility] [address] [address] Apr, [facility] [address] [address] Apr, [facility] [address] [facility] [id number] [address] [place] [address] 07 Apr, 2019 Sore throat J02.9 and Non-re current acute suppurative otitis media of both ears without spontaneous rupture of tympanic membranes H66.003 [facility] [address] [address] Apr, [facility] [address] [address] Apr, [facility] [address] [address] Apr, Schizoaffective disorder, depressive typ e F25.1 [facility] [address] [address] Mar, Schizoaffective disorder, depressive typ e F25.1 [facility] [address] [address] Mar, [facility] [address] [facility] [id number] [address] [address] Mar, Acute nasopharyngitis J00 [facility] [address] [address] Mar, [facility] [address] [address] Mar, [facility] [address] [id number] Mar, Caries K02.9 [facility] [address] [id number] Feb, Dental examination Z01.20 and Caries K02 .9 [facility] [address] [address] Feb, Constipation, unspecified constipation t ype K59.00 ; Acute hemorrhoid K64.9 ; Tobacco abuse Z72.0 ; BMI 40.0-44.9, adult Z68.41 and Dyslipidemia E78.5 [facility] [address] [address] Feb, [facility] [address] [address] Feb, [place] [address] [address] Feb, Constipation, unspecified constipation t ype K59.00 ; Left lower quadrant abdominal pain R10.32 ; Hypothyroidism (acquired) E03.9 ; Tobacco abuse Z72.0 and BMI 40.0-44.9, adult Z68.41 [place] [address] [address] Feb, [place] [address] [place] [address] Feb, Chronic obstructive pulmonary disease, u nspecified COPD type J44.9 [place] [address] [address] Jan, [place] [address] [address] Jan, Paranoid schizophrenia F20.0 [place] [address] [address] Jan, [place] [address] [address] Jan, [place] [address] [address] Jan, Diverticulitis K57.92 and Diarrhea, unsp ecified type R19.7 [place] [address] [address] Jan, Paranoid schizophrenia F20.0 and Tobacco abuse Z72.0 [place] [address] [address] 15 Jan, 2019 Paranoid schizophrenia F20.0 [place] [address] [address] Jan, Tobacco use Z72.0 [place] [address] [address] 14 Jan, 2019 Hypothyroidism (acquired) E03.9 and Type 2 diabetes mellitus without complication, without long-term current use of insulin E11.9 [place] [address] [address] Jan, Paranoid schizophrenia F20.0 [place] [address] [address] 08 Jan, 2019 [place] [address] [address] Jan, Chronic obstructive pulmonary disease, u nspecified COPD type J44.9 [place] [address] [address] Dec, [place] [address] [address] Dec, Schizoaffective disorder, depressive typ e F25.1 [place] [address] [address] Dec, [place] [address] [address] Dec, [place] [address] [address] Dec, Type 2 diabetes mellitus with diabetic [...] abuse Z72.0 and Encounter for immunization Z23 [place] [address] [address] Dec, Encounter for immunization Z23 [place] [address] [address] Dec, [place] [address] [address] 13 Dec, 2018 [place] [address] [address] Dec, [facility] [address] [place] [id number] [place] [address] Dec, [facility] [address] [address] Dec, [facility] [address] [address] Dec, [facility] [address] [address] Nov, Paranoid schizophrenia F20.0 [facility] [address] [address] Nov, [facility] [address] [address] Nov, [facility] [address] [address] Nov, [facility] [address] [address] Nov, Encounter for comprehensive diabetic monique t examination, type 2 diabetes mellitus E11.9 and Morbid obesity E66.01 [facility] [address] [address] Nov, [facility] [address] [address] Nov, [facility] [address] [address] Nov, [facility] [address] [address] Nov, Schizoaffective disorder, depressive typ e F25.1 [facility] [address] [address] Nov, Constipation by delayed colonic transit K59.01 [facility] [address] [address] Oct, [facility] [address] [address] Oct, [facility] [address] [address] Oct, [facility] [address] [address] Oct, Chronic obstructive pulmonary disease, u nspecified COPD type J44.9 [facility] [address] [address] Oct, [facility] [address] [address] Sep, Paranoid schizophrenia F20.0 [facility] [address] [address] Sep, [facility] [address] [address] Sep, [facility] [address] [address] Sep, Encounter for immunization Z23 [facility] [address] [address] Sep, [facility] [address] [address] Sep, Closed fracture of right ankle, sequela S82.891S ; Morbid obesity E66.01 and Heat rash L74.0 [facility] [address] [address] Sep, Schizoaffective disorder, depressive typ e F25.1 [facility] [address] [address] Sep, [facility] [address] [address] Sep, [facility] [address] [address] Sep, [facility] [address] [address] Sep, [facility] [address] [place] [address] [id number] [place] [address] Sep, [facility] [address] [address] Sep, [facility] [address] [address] Sep, [facility] [address] [address] Sep, [facility] [address] [address] Sep, [facility] [address] [address] August, Paranoid schizophrenia F20.0 [facility] [address] [address] August, [facility] [address] [address] August, [facility] [address] [address] August, [facility] [address] [address] August, Type 2 diabetes mellitus without complic ation, without long-term current use of insulin E11.9 ; Closed fracture of right ankle, initial encounter S82.891A ; Constipation by delayed colonic transit K59.01 ; Osteoporosis with pathological fracture, initial encounter M80.00XA ; Encounter for immunization Z23 and Morbid obesity E66.01 [facility] [address] [address] August, [facility] [address] [address] August, [facility] [address] [address] August, Acquired deformity of musculoskeletal sy stem, unspecified M95.9 [facility] [address] [address] August, Paranoid schizophrenia F20.0 [facility] [address] [place] [id number] [address] August, [place] [address] [address] Jul, [place] [address] [address] Jul, Diabetic polyneuropathy associated with type 2 diabetes mellitus E11.42 ; Paranoid schizophrenia F20.0 ; Preoperative clearance Z01.818 and Morbid obesity E66.01 [place] [address] [address] Jul, Paranoid schizophrenia F20.0 [place] [address] [address] Jul, [place] [address] [address] Jul, [place] [address] [address] Jul, Cigarette nicotine dependence without co mplication F17.210 [place] [address] [address] Jul, Type 2 diabetes mellitus without complic ation, without long-term current use of insulin E11.9 and Hypothyroidism (acquired) E03.9 [place] [address] [address] Jul, Encounter for Medicare annual wellness e xam Z00.00 ; Morbid obesity due to excess calories E66.01 ; Diabetic polyneuropathy associated with type 2 diabetes mellitus E11.42 ; Chronic obstructive pulmonary disease, unspecified COPD type J44.9 ; Schizoaffective disorder, depressive type F25.1 ; Hypothyroidism (acquired) E03.9 and Morbid obesity E66.01 [place] [address] [address] Jun, Gastroesophageal reflux disease without esophagitis K21.9 [place] [address] [address] Jun, Paranoid schizophrenia F20.0 [place] [address] [address] Jun, Schizoaffective disorder, depressive typ e F25.1 [place] [address] [address] Jun, [place] [address] [address] Jun, Schizoaffective disorder, depressive typ e F25.1 [place] [address] [address] Jun, Cigarette nicotine dependence without co mplication F17.210 [place] [address] [address] Jun, Type 2 diabetes mellitus without complic ation, without long-term current use of insulin E11.9 [place] [address] [address] 15 Jun, 2018 [place] [address] [address] Jun, [place] [address] [address] Jun, [place] [address] [address] Jun, [place] [address] [address] Jun, [place] [address] [address] Jun, Paranoid schizophrenia F20.0 ; Type 2 di abetes mellitus without complication, without long-term current use of insulin E11.9 ; Hypothyroidism (acquired) E03.9 and Morbid obesity E66.01 [place] [address] [address] May, Paranoid schizophrenia F20.0 [place] [address] [address] 20 May, 2018 Hypothyroidism (acquired) E03.9 and Dysl ipidemia E78.5 [place] [address] [address] May, Cigarette nicotine dependence without co mplication F17.210 [place] [address] [address] May, [place] [address] [address] 14 May, 2018 Type 2 diabetes mellitus without complic ation, without long-term current use of insulin E11.9 ; Essential hypertension I10 ; Hypothyroidism (acquired) E03.9 and Dyslipidemia E78.5 [place] [address] [address] May, [place] [address] [address] May, Schizoaffective disorder, depressive typ e F25.1 [place] [address] [address] May, Paranoid schizophrenia F20.0 [place] [address] [address] May, [facility] [address] [place] [address] May, [place] [address] [address] May, [place] [address] [address] May, Type 2 diabetes mellitus without complic ation, without long-term current use of insulin E11.9 ; Essential hypertension I10 ; Hypothyroidism (acquired) E03.9 and Dyslipidemia E78.5 [place] [address] [address] May, [facility] [address] [address] 04 May, [address] [facility] [address] [facility] [id number] [address] [place] [address] 04 May, 2018 Allergic rhinitis, unspecifi ed seasonality, unspecified trigger J30.9 [facility] [address] [address] May, [facility] [address] [address] Apr, Schizoaffective disorder, depressive typ e F25.1 [place] [address] [address] Apr, [facility] [address] [address] Apr, Cigarette nicotine dependence without co mplication F17.210 [place] [address] [address] Apr, [facility] [address] [address] Apr, Cigarette nicotine dependence without co mplication F17.210 [facility] [address] [address] Apr, [facility] [address] [address] Apr, Migraine without aura and without status migrainosus, not intractable G43.009 [place] [address] [address] Apr, Migraine without aura and without status migrainosus, not intractable G43.009 [place] [address] [address] Mar, Schizoaffective disorder, depressive typ e F25.1 ; BMI 45.0-49.9, adult Z68.42 and BMI 40.0-44.9, adult Z68.41 [place] [address] [address] 13 Mar, 2018 Primary insomnia F51.01 [place] [address] [address] Mar, [place] [address] [address] 14 Feb, 2018 Primary insomnia F51.01 [place] [address] [address] Feb, [place] [address] [address] Jan, Schizoaffective disorder, depressive typ e F25.1 and BMI 45.0-49.9, adult Z68.42 [place] [address] [address] Jan, [place] [address] [address] 16 Jan, 2018 Type 2 diabetes mellitus with diabetic n europathic arthropathy, 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 ; Menopausal syndrome (hot flashes) N95.1 ; BMI 40.0-44.9, adult Z68.41 and Morbid obesity E66.01 [place] [address] [address] Jan, Paranoid schizophrenia F20.0 [place] [address] [address] Jan, [place] [address] [address] Jan, Schizoaffective disorder, depressive typ e F25.1 [place] [address] [address] Jan, [place] [address] [address] Jan, Chronic obstructive pulmonary disease, u nspecified COPD type J44.9 ; BMI 45.0-49.9, adult Z68.42 ; Type 2 diabetes mellitus without complication, without long-term current use of insulin E11.9 ; Hypothyroidism (acquired) E03.9 ; Encounter for immunization Z23 ; Gastroesophageal reflux disease without esophagitis K21.9 ; Primary insomnia F51.01 and Acute nasopharyngitis J00 [facility] [address] [address] 27 Dec, 2017 [facility] [address] [address] 21 Dec, 2017 Schizoaffective disorder, depressive typ e F25.1 and BMI 45.0-49.9, adult Z68.42 [place] [address] [address] 21 Dec, 2017 [place] [address] [address] 18 Dec, 2017 [facility] [address] [place] [address] 18 Dec, 2017 Acute non-recurrent frontal sinusitis J0 1.10 [facility] [address] [address] 18 Dec, 2017 Acute non-recurrent frontal sinusitis J0 1.10 ; Weakness of left leg R29.898 ; At high risk for falls Z91.81 and BMI 45.0-49.9, adult Z68.42 [place] [address] [address] 17 Dec, 2017 [facility] [address] [address] 17 Dec, 2017 [place] [address] [address] 10 Dec, 2017 Schizoaffective disorder, depressive typ e F25.1 [facility] [address] [facility] [id number] [address] [place] [address] Dec, Acute nasopharyngitis J00 [facility] [address] [address] Dec, Schizoaffective disorder, depressive typ e F25.1 [place] [address] [address] Dec, [place] [address] [address] Nov, Schizoaffective disorder, depressive typ e F25.1 and BMI 45.0-49.9, adult Z68.42 [place] [address] [address] Nov, [place] [address] [address] Nov, [place] [address] [address] Nov, Schizoaffective disorder, depressive typ e F25.1 [place] [address] [address] Nov, Well woman exam Z01.419 ; BMI 45.0-49.9, adult Z68.42 ; Screening breast examination Z12.31 and Dietary counseling and surveillance Z71.3 [place] [address] [address] Nov, Paranoid schizophrenia F20.0 [place] [address] [address] Nov, Gastroesophageal reflux disease, esophag itis presence not specified K21.9 [place] [address] [address] Oct, Paranoid schizophrenia F20.0 [facility] [place] [id number] [place] [address] Oct, Chronic pain syndrome G89.4 and Schizoaffective disorder, depressive type F25.1 [place] [address] [address] Oct, Chronic pain syndrome G89.4 and Schizoaf fective disorder, depressive type F25.1 [place] [address] [address] 16 Oct, 2017 Type 2 diabetes mellitus without complic ation, without long-term current use of insulin E11.9 [place] [address] [address] Oct, Essential hypertension I10 and DM neuro manif type II E11.[address] [address] Oct, [address] [address] Oct, Schizoaffective disorder, depressive typ e F25.1 and BMI 45.0-49.9, adult Z68.[address] [address] Oct, [address] [address] Oct, Paranoid schizophrenia F20.[address] [address] Oct, Type 2 diabetes mellitus with diabetic n europathic arthropathy, 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 ; Essential hypertension I10 ; Hypothyroidism (acquired) E03.9 ; Chronic obstructive pulmonary disease, unspecified COPD type J44.9 and Diabetic polyneuropathy associated with type 2 diabetes mellitus E11.[address] [address] Sep, Paranoid schizophrenia F20.[address] [address] Sep, Paranoid schizophrenia F20.0 and BMI 45. 0-49.9, adult Z68.[address] [address] Sep, Schizoaffective disorder, depressive typ e F25.[address] [address] Sep, [facility] [address] [address] Sep, Paranoid schizophrenia F20.0 [facility] [address] [address] Sep, [facility] [address] [address] Sep, Hypothyroidism (acquired) E03.9 [facility] [address] [address] Sep, [facility] [address] [address] August, Schizoaffective disorder, depressive typ e F25.1 [place] [address] [address] August, [place] [address] [address] August, [facility] [address] [address] August, [place] [address] [address] August, Paranoid schizophrenia F20.0 [facility] [address] [address] August, History of lupus Z87.39 and Chronic pain syndrome G89.4 [facility] [address] [address] August, [facility] [address] [facility] [id number] [address] [place] [address] August, Seasonal allergic rhinitis, unspecified trigger J30.2 and BMI 45.0-49.9, adult Z68.42 [facility] [address] [address] Jul, Schizoaffective disorder, depressive typ e F25.1 [facility] [address] [address] Jul, [facility] [address] [address] 13 Jul, 2017 Hypothyroidism (acquired) E03.9 [facility] [address] [address] 11 Jul, 2017 Chronic obstructive pulmonary disease, u nspecified COPD type J44.9 and Type 2 diabetes mellitus without complication, without long-term current use of insulin E11.9 [facility] [address] [address] Jul, Paranoid schizophrenia F20.0 [place] [address] [address] 29 Jun, 2017 Hypothyroidism (acquired) E03.9 and Seas onal allergic rhinitis due to pollen J30.1 [facility] [address] [facility] [id number] [address] [place] [address] Jun, Shortness of breath at rest R06.02 ; COPD exacerbation J44.1 and BMI 45.0-49.9, adult Z68.42 [place] [address] [address] Jun, [facility] [address] [address] Jun, Paranoid schizophrenia F20.0 ; Depressio n with anxiety F41.8 and BMI 45.0-49.9, adult Z68.42 [facility] [address] [address] Jun, Schizoaffective disorder, depressive typ e F25.1 [facility] [address] [place] [place] [id number] [place] [id number] Jun, Dental caries K02.9 [facility] [address] [address] Jun, Paranoid schizophrenia F20.0 [place] [address] [address] May, Migraine without aura and without status migrainosus, not intractable G43.009 ; DM neuro manif type II E11.49 and Type 2 diabetes mellitus without complication, without long-term current use of insulin E11.9 [facility] [address] [address] May, Migraine without aura and without status migrainosus, not intractable G43.009 [facility] [address] [address] May, Depression with anxiety F41.8 [facility] [address] [id number] May, [facility] [address] [address] May, [facility] [address] [address] May, [facility] [address] [address] May, Hypothyroidism (acquired) E03.9 [facility] [address] [address] May, Paranoid schizophrenia F20.0 [facility] [address] [address] 08 May, 2017 Type 2 diabetes mellitus [...] Controlled substance agreement signed Z79.899 [place] [address] [address] May, Controlled substance agreement signed Z7 9.899 [facility] [address] [address] Apr, [facility] [address] [id number] [place] [id number] Apr, Dental examination Z01.20 [facility] [address] [address] Apr, Paranoid schizophrenia F20.0 [facility] [address] [address] Apr, Hypertension, unspecified type I10 [facility] [address] [address] Apr, Paranoid schizophrenia F20.0 [place] [address] [address] Apr, [facility] [address] [address] Apr, Tobacco abuse Z72.0 [facility] [address] [address] Apr, [facility] [address] [address] Mar, [place] [address] [address] Mar, Paranoid schizophrenia F20.0 and BMI 45. 0-49.9, adult Z68.42 [facility] [address] [address] Mar, Schizoaffective disorder, depressive typ e F25.1 [facility] [address] [address] Mar, [facility] [address] [address] Mar, Hypothyroidism, unspecified type E03.9 [place] [address] [place] [id number] [place] [address] Mar, Schizoaffective disorder, depressive typ e F25.1 [facility] WALK IN [facility] [address] [facility] [id number] [address] [place] [address] Feb, Gastroenteritis K52.9 and BM I 45.0-49.9, adult Z68.42 [place] [address] [address] Feb, [place] [address] [address] Feb, [place] [address] [address] Feb, [place] [address] [address] Feb, [place] [address] [address] Feb, Paranoid schizophrenia F20.0 [place] [address] [address] 06 Feb, 2017 Gastroesophageal reflux disease without esophagitis K21.9 ; Other seasonal allergic rhinitis J30.2 ; Other allergic rhinitis J30.89 ; Tobacco abuse Z72.0 and BMI 40.0-44.9, adult Z68.41 [place] [address] [address] Feb, Onychomycosis B35.1 ; Callus of foot L84 and DM neuro manif type II E11.49 [place] [address] [address] Jan, Chronic allergic rhinitis J30.9 [place] [address] [address] Jan, [place] [address] [address] Jan, Schizoaffective disorder, depressive typ e F25.1 [place] [address] [address] 10 Jan, 2017 [facility] [address] [place] [address] [id number] [place] [address] 07 Jan, 2017 Sore throat J02.9 and Season al allergic rhinitis due to other allergic trigger J30.89 [place] [address] [address] Jan, [place] [address] [address] Jan, [facility] [address] [place] [id number] [place] [address] Jan, Chronic allergic rhinitis J3 0.9 [place] [address] [address] 27 Dec, 2016 Paranoid schizophrenia F20.0 ; Primary i nsomnia F51.01 and Schizoaffective disorder, depressive type F25.1 [place] [address] [address] Dec, Chronic pain syndrome G89.4 ; Cervicalgi a of rzmxuvhy-mvtjfyb-drziz region M54.2 ; Menopausal syndrome (hot flashes) N95.1 and Encounter for immunization Z23 [place] [address] [address] 14 Dec, 2016 [place] [address] [address] 13 Dec, 2016 [place] [address] [address] 08 Dec, 2016 Paranoid schizophrenia F20.0 [place] [address] [address] Dec, Schizoaffective disorder, depressive typ e F25.1 [place] [address] [address] Nov, Hypothyroidism, unspecified type E03.9 [facility] [address] [place] [id number] [address] [address] Nov, Acute seasonal allergic rhin itis due to other allergen J30.89 [place] [address] [address] Nov, [place] [address] [address] Nov, Hypothyroidism, unspecified type E03.9 a nd Other elevated white blood cell (WBC) count D72.828 [place] [address] [address] Nov, Schizoaffective disorder, depressive typ e F25.1 [place] [address] [address] Nov, Paranoid schizophrenia F20.0 [place] [address] [address] Nov, Type 2 diabetes mellitus without complic ation, without long-term current use of insulin E11.9 ; Morbid obesity due to excess calories E66.01 and Chronic pain syndrome G89.4 [place] [address] [address] Oct, Paranoid schizophrenia F20.0 [place] [address] [address] Oct, [place] [address] [address] Oct, Schizoaffective disorder, depressive typ e F25.1 [place] [address] [address] Oct, Hypothyroidism, unspecified type E03.9 a nd Other elevated white blood cell (WBC) count D72.828 [place] [address] [address] Oct, Morbid obesity due to excess calories E6 6.01 ; Chronic obstructive pulmonary disease, unspecified COPD type J44.9 ; History of lupus Z87.39 ; Hypothyroidism, unspecified type E03.9 ; Gastroesophageal reflux disease without esophagitis K21.9 ; Primary insomnia F51.01 and Chronic pain syndrome G89.4 [facility] [address] [address] 30 Sep, 2016 [facility] [address] [address] Sep, [facility] [address] [address] Sep, [facility] [address] [address] Sep, Paranoid schizophrenia F20.0 [facility] [address] [address] Sep, [facility] [address] [address] Sep, Paranoid schizophrenia F20.0 [facility] [address] [address] Sep, [facility] [address] [address] August, Paranoid schizophrenia F20.0 [facility] [address] [address] Jul, [facility] [address] [address] Jul, Type 2 diabetes mellitus without complic ation, without long-term current use of insulin E11.9 ; Morbid obesity due to excess calories E66.01 ; Depression with anxiety F41.8 ; Hypothyroidism, unspecified type E03.9 ; Seasonal allergic rhinitis due to other allergic trigger J30.89 ; Pain, dental K08.89 and Gastroesophageal reflux disease without esophagitis K21.9 [facility] [address] [id number] [place] [id number] Jul, Dental examination Z01.20 [facility] [address] [address] 07 Jul, 2016 Paranoid schizophrenia F20.0 [place] [address] [address] 13 Jun, 2016 Paranoid schizophrenia F20.0 and Depress ion with anxiety F41.8 [place] [address] [address] 10 Jun, 2016 Paranoid schizophrenia F20.0 and Depress ion with anxiety F41.8 [place] [address] [address] 09 Jun, 2016 [place] [address] [address] Jun, [facility] [place] [address] [address] Jun, Seasonal allergic rhinitis d ue to other allergic trigger J30.89 [facility] [place] [address] [address] May, Sore throat J02.9 ; Other vi ral agents as the cause of diseases classified elsewhere B97.89 and Acute upper respiratory infection, unspecified J06.[address] [address] May, Paranoid schizophrenia F20.0 and Depress ion with anxiety F41.8 [place] [address] [address] Apr, Other seasonal allergic rhinitis J30.2 [place] [address] [address] Apr, Paranoid schizophrenia F20.0 and Depress ion with anxiety F41.8 [facility] [place] [address] [address] Apr, Bronchitis J40 and Sore thro at J02.9 [place] [address] [address] Apr, Type 2 diabetes mellitus without complic ation, without long-term current use of insulin E11.9 [facility] [address] [facility] [id number] [address] [place] [address] Apr, Bronchitis J40 [place] [address] [address] Apr, [place] [address] [address] Apr, [place] [address] [address] Mar, Type 2 diabetes mellitus without complic [...] Other seasonal allergic rhinitis J30.2 [place] [address] [address] Mar, Paranoid schizophrenia F20.0 and Depress ion with anxiety F41.8 [place] [address] [address] Feb, [place] [address] [address] Feb, [place] [address] [address] Feb, [place] [address] [address] Feb, [place] [address] [address] Feb, Type 2 diabetes mellitus without complic ation, without long-term current use of insulin E11.9 ; ARIAS on CPAP G47.33 and Preoperative evaluation to rule out surgical contraindication Z01.818 [place] [address] [address] Feb, Paranoid schizophrenia F20.0 and Depress ion with anxiety F41.8 [facility] [address] [address] Jan, [facility] [address] [id number] [place] [address] Jan, Paranoid schizophrenia F20.0 and Depress ion with anxiety F41.8 [facility] [address] [address] Jan, [facility] [address] [address] Jan, Muscle strain T14.8 [facility] [address] [place] [id number] [place] [address] Jan, Paranoid schizophrenia F20.0 [facility] [address] [address] Jan, [facility] [address] [address] Jan, Paranoid schizophrenia F20.0 and Depress ion with anxiety F41.8 [facility] [address] [place] [id number] [place] [address] Jan, [facility] [address] [place] [id number] [place] [address] Jan, [facility] [address] [address] 28 Dec, 2015 [facility] [address] [id number] [place] [address] 23 Dec, 2015 Paranoid schizophrenia F20.0 [facility] [address] [address] 16 Dec, 2015 Paranoid schizophrenia F20.0 and Depress ion with anxiety F41.8 [facility] [address] [id number] [place] [address] Nov, [facility] [address] [address] Nov, Paranoid schizophrenia F20.0 [place] [address] [address] Nov, Paranoid schizophrenia F20.0 and Depress ion with anxiety F41.8 [place] [address] [address] Nov, Type 2 diabetes mellitus without complic ation, without long-term current use of insulin E11.9 ; Paranoid schizophrenia F20.0 ; Chronic obstructive pulmonary disease, unspecified COPD type J44.9 ; Morbid obesity due to excess calories E66.01 and Parkinsonian tremor G20 [place] [address] [address] Nov, [place] [address] [address] Oct, Paranoid schizophrenia F20.0 [place] [address] [address] Oct, Paranoid schizophrenia F20.0 [place] [address] [address] Oct, Paranoid schizophrenia F20.0 and Depress ion with anxiety F41.8 [place] [address] [address] Oct, [place] [address] [address] Oct, Paranoid schizophrenia F20.0 and Depress ion with anxiety F41.8 [place] [address] [address] Oct, Nasal sore J34.89 [place] [address] [address] Oct, Type 2 diabetes mellitus without complic ation, without long-term current use of insulin E11.9 ; Depression with anxiety F41.8 ; Hypothyroidism, unspecified type E03.9 and History of lupus Z87.39 [facility] [address] [address] Oct, [facility] [address] [address] Oct, Type 2 diabetes mellitus without complic [...] Z87.39 [facility] [address] [address] Feb, [facility] [address] [address] Jan, [facility] [address] [address] Jan, [facility] [address] [address] Jan, [facility] [address] [address] Dec, [facility] [address] [address] Nov, [facility] [address] [address] Nov, [facility] [address] [address] Oct, [facility] [address] [address] Oct, [facility] [address] [address] Oct, [facility] [address] [id number] [place] [address] 12 Sep, 2014 Allergic rhinitis 477.9 [facility] [address] [id number] [place] [address] 11 Sep, 2014 Rhinitis, allergic 477.9 [facility] [address] [id number] [place] [address] 10 Sep, 2014 Rhinitis, allergic 477.9 [facility] [address] [id number] [place] [address] Sep, [facility] [address] [id number] [place] [address] August, [facility] [address] [id number] [place] [address] August, [facility] [address] [id number] [place] [address] August, [facility] [address] [id number] [place] [address] Jul, [facility] [address] [id number] [place] [address] Jul, [facility] [address] [id number] [place] [address] Jul, [facility] [address] [id number] [place] [address] Jun, [facility] [address] [id number] [place] [address] 16 Jun, 2014 [facility] [address] [id number] [place] [address] Jun, [facility] [address] [id number] [place] [address] Jun, [facility] [address] [id number] [place] [address] Jun, [facility] [address] [id number] [place] [address] Jun, [facility] [address] [id number] [place] [address] Jun, 2014 [facility] [address] [id number] [place] [address] Jun, [facility] [address] [id number] [place] [address] May, 2014 [facility] [address] [id number] [place] [address] May, 2014 [facility] [address] [id number] [place] [address] May, 2014 [facility] [address] [id number] [place] [address] May, 2014 [facility] [address] [id number] [place] [address] Apr, [facility] [address] [id number] [place] [address] Mar, [facility] [address] [id number] [place] [address] Mar, [facility] [address] [id number] [place] [address] Mar, [facility] [address] [id number] [place] [address] Mar, [facility] [address] [id number] [place] [address] Mar, [facility] [address] [id number] [place] [address] Mar, [facility] [address] [id number] [place] [address] Mar, [facility] [address] [id number] [place] [address] Mar, [facility] [address] [id number] [place] [address] Mar, [facility] [address] [id number] [place] [address] Feb, [facility] [address] [facility] [id number] [place] [address] Feb, [facility] [address] [facility] [id number] [place] [address] Feb, [facility] [address] [id number] [place] [address] 17 Feb, 2014 [facility] [address] [id number] [place] [address] Feb, [facility] [address] [facility] [id number] [place] [address] Feb, [facility] [address] [id number] [place] [address] Feb, [facility] [address] [id number] [place] [address] Feb, [facility] [address] [id number] [place] [address] 23 Jan, 2014 [facility] [address] [id number] [place] [address] 23 Jan, 2014 [facility] [address] [id number] [place] [address] 16 Jan, 2014 [facility] [address] [id number] [place] [address] 16 Jan, 2014 [facility] [address] [id number] [place] [address] 15 Jan, 2014 [facility] [address] [id number] [place] [address] 15 Jan, 2014 [facility] [address] [id number] [place] [address] 14 Jan, 2014 [facility] [address] [id number] [place] [address] 14 Jan, 2014 [facility] [address] [id number] [place] [address] 14 Jan, 2014 [facility] [address] [id number] [place] [address] 14 Jan, 2014 [facility] [address] [id number] [place] [address] 18 Dec, 2013 [facility] [address] [facility] [id number] [place] [address] 18 Dec, 2013 [facility] [address] [id number] [place] [address] 10 Dec, 2013 [facility] [address] [id number] [place] [address] Dec, [facility] [address] [facility] [id number] [place] [address] Nov, [facility] [address] [id number] [place] [address] Nov, [facility] [address] [id number] [place] [address] Nov, [facility] [address] [id number] [place] [address] Nov, [facility] [address] [id number] [place] [address] Nov, [facility] [address] [id number] [place] [address] Oct, [facility] [address] [id number] [place] [address] Oct, [facility] [address] [id number] [place] [address] Oct, [facility] [address] [id number] [place] [address] Oct, [facility] [address] [id number] [place] [address] Sep, [facility] [address] [id number] [place] [address] Sep, [facility] [address] [id number] [place] [address] Sep, [facility] [address] [id number] [place] [address] Sep, [facility] [address] [id number] [place] [address] Sep, [facility] [address] [id number] [place] [address] Sep, [facility] [address] [id number] [place] [address] Sep, [facility] [address] [facility] [id number] [place] [address] Sep, [facility] [address] [id number] [place] [address] August, [facility] [address] [id number] [place] [address] August, [facility] [address] [id number] [place] [address] August, [facility] [address] [id number] [place] [address] August, [facility] [address] [id number] [place] [address] August, [facility] [address] [id number] [place] [address] August, [facility] [address] [id number] [place] [address] August, [facility] [address] [id number] [place] [address] Jul, [facility] [address] [id number] [place] [address] Jul, [facility] [address] [id number] [place] [address] Jul, [facility] [address] [id number] [place] [address] Jul, [facility] [address] [id number] [place] [address] Jul, [facility] [place] [address] [facility] [id number] [place] [address] Jul, [facility] [address] [id number] [place] [address] Jul, [facility] [address] [id number] [place] [address] Jul, [facility] [address] [id number] [place] [address] Jul, [facility] [address] [id number] [place] [address] Jul, [facility] [address] [id number] [place] [id number] Jul, [facility] [address] [id number] [place] [address] Jul, [facility] [address] [id number] [place] [address] Jun, [facility] [address] [id number] [place] [address] Jun, [facility] [address] [id number] [place] [address] Jun, [facility] [address] [id number] [place] [address] Jun, [facility] [address] [id number] [place] [address] Jun, [facility] [address] [id number] [place] [address] May, [facility] [address] [id number] [place] [address] May, [facility] [address] [id number] [place] [address] May, [facility] [address] [id number] [place] [address] May, [facility] [address] [id number] [place] [address] May, 2013 [facility] [address] [id number] [place] [address] May, [facility] [address] [id number] [place] [address] May, [facility] [id number] [place] [address] May, [facility] [address] [id number] [place] [address] Mar, [facility] [address] [id number] [place] [address] Mar, [facility] [address] [id number] [place] [address] Mar, [facility] [id number] [place] [address] Mar, [facility] [id number] [place] [address] Mar, [facility] [id number] [place] [address] Mar, [facility] [id number] [place] [address] Feb, [facility] [id number] [place] [address] Feb, [facility] [id number] [place] [address] Jan, [facility] [address] [id number] [place] [address] Jan, [facility] [id number] [place] [address] Jan, [facility] [address] [id number] [place] [address] Jan, [facility] [id number] [place] [address] Jan, [facility] [address] [id number] [place] [address] Jan, [facility] [address] [id number] [place] [address] Jan, [facility] [address] [id number] [place] [address] Jan, [facility] [address] [id number] [place] [address] Jan, [facility] [address] [facility] [id number] [place] [address] Jan, [facility] [address] [id number] [place] [address] Dec, [facility] [address] [id number] [place] [address] Nov, [facility] [address] [id number] [place] [address] Nov, [facility] [address] [id number] [place] [address] Nov, [facility] [address] [id number] [place] [address] Oct, [facility] [address] [id number] [place] [address] Oct, [facility] [address] [id number] [place] [address] August, [facility] [address] [id number] [place] [address] Apr, [facility] [address] [id number] [place] [address] Apr, [facility] [address] [id number] [place] [address] Feb, [facility] [address] [id number] [place] [address] Feb, [facility] [address] [id number] [place] [address] Dec, [facility] [address] [id number] [place] [address] Dec, [facility] [address] [id number] [place] [address] Oct, [facility] [address] [id number] [place] [address] Oct, [facility] [address] [id number] [place] [address] Oct, [facility] [address] [id number] [place] [address] Jul, IMMUNIZATIONS No Known Immunizations SOCIAL HISTORY Never Assessed REASON FOR VISIT PLAN OF CARE VITAL SIGNS Height 60 in 2013-07-26 Weight 225.9 lbs 2013-07-26 Temperature 98.1 degrees Fahrenheit 2013-07-26 Heart Rate 72 bpm 2013-07-26 Respiratory Rate 20 2013-07-26 Blood pressure systolic 142 mmHg 2013-07-26 Blood pressure diastolic 88 mmHg 2013-07-26 MEDICATIONS Unknown Medications RESULTS No Results PROCEDURES [...] for psychosis/mental illness, last one in [facility] 4 years ago Hospitalization History broken ankle 08/2018
--- OUTSIDE RECORDS SUMMARY | 2019-07-07 04:04 | XMS REPORT ---
Author Author Alayna ROJAS Organization [facility] Address [address] [place] [address] Care Team Providers Care Assembler Finger Buffs Name Role Phone RADHA ROJAS Unavailable PROBLEMS Type Condition ICD9-CM Code VFS56-VE Code Onset Dates Condition S tatus SNOMED Code Problem Type 2 diabetes mellitus wit hout complication, without long-term current use of insulin E11.9 Active 556688963 Problem Gastroesophageal reflux disease without esophagitis K21.9 Active 949807198 Problem History of lupus Z87.39 Active 312 455251 Problem Schizoaffective disorder, depressive type F25.1 Active 22398798 Problem Seasonal allergic rhinitis due to other allergic trigger J30.89 Active 230490786 Problem DM neuro manif type II E11.49 Active 06008432 Problem Primary insomnia F51.01 Active 397 2004 Problem Diabetic polyneuropathy associated with type 2 d iabetes mellitus E11.42 Active 827715268 Problem Chronic pain syndrome G89.4 Active 667611801 Problem 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, 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 Active 492430385 Problem Morbid obesity due to excess calories E66.01 Active 711576468 Problem OAB (overactive bladder) N32.81 Activ e 654495107 Problem Paranoid schizophrenia F20.0 Active 99150522 Problem Gastroesophageal reflux disease, esophagitis pre sence not specified K21.9 Active 913550167 Problem Tobacco abuse Z72.0 Active 454025 000 Problem Dyslipidemia E78.5 Active 0624573 07 Problem Migraine without aura and without status migrain osus, not intractable G43.009 Active 516964115 Problem Hypothyroidism (acquired) E03.9 Acti ve 964153920 Problem Essential hypertension I10 Active 95534176 Problem Seasonal allergic rhinitis due to pollen J30.1 Active 00556537 Problem Chronic obstructive pulmonary disease, unspecified COPD ty pe J44.9 Active 38326654 Problem COPD exacerbation J44.1 Active 19 5862149 Problem Depression with anxiety F41.8 Active 129992496 Problem Cigarette nicotine dependence without complication F17.210 Active 32288091 Problem Allergic rhinitis, unspecified seasonality, unspecifie d trigger J30.9 Active 16665915 Problem Constipation by delayed colonic transit K59.01 Active 09718820 Problem Constipation, unspecified constipation type K59.00 Active 25944562 Problem Other allergic rhinitis J30.89 Active 597219255 Problem Constipation, unspecified constipation type K59.00 Active 80427620 Problem Menopausal syndrome (hot flashes) N95.1 Active 472601369 Problem Other seasonal allergic rhinitis J30.2 Active 404809436 Problem BMI 31.0-31.9,adult Z68.31 Active 712974209 Problem Vaginal dryness, menopausal N95.1 Ac tive 83950323 Problem Diverticulitis K57.92 Active 02360 6006 Problem BMI 40.0-44.9, adult Z68.41 Active 664644942 ALLERGIES No Information ENCOUNTERS Encounter Location Date Diagnosis [facility] [address] [address] Jun, [facility] [address] [address] 11 May, 2019 [facility] [address] [address] May, [facility] [address] [address] Apr, [facility] [address] [address] Apr, Paranoid schizophrenia F20.0 [facility] [address] [address] Apr, [facility] [address] [address] Apr, [facility] [address] [facility] [id number] [address] [place] [address] 07 Apr, 2019 Sore throat J02.9 and Non-re current acute suppurative otitis media of both ears without spontaneous rupture of tympanic membranes H66.003 [facility] [address] [address] Apr, [facility] [address] [address] Apr, [facility] [address] [address] Apr, Schizoaffective disorder, depressive typ e F25.1 [facility] [address] [address] Mar, Schizoaffective disorder, depressive typ e F25.1 [facility] [address] [address] Mar, [facility] [address] [facility] [id number] [address] [place] [address] Mar, Acute nasopharyngitis J00 [facility] [address] [address] Mar, [facility] [address] [address] Mar, [facility] [address] [id number] Mar, Caries K02.9 [facility] [address] [id number] Feb, Dental examination Z01.20 and Caries K02 .9 [facility] [address] [address] Feb, Constipation, unspecified constipation t ype K59.00 ; Acute hemorrhoid K64.9 ; Tobacco abuse Z72.0 ; BMI 40.0-44.9, adult Z68.41 and Dyslipidemia E78.5 [facility] [address] [address] Feb, [facility] [address] [address] Feb, [facility] [address] [address] Feb, Constipation, unspecified constipation t ype K59.00 ; Left lower quadrant abdominal pain R10.32 ; Hypothyroidism (acquired) E03.9 ; Tobacco abuse Z72.0 and BMI 40.0-44.9, adult Z68.41 [place] [address] [address] Feb, [place] [address] [address] Feb, Chronic obstructive pulmonary disease, u nspecified COPD type J44.9 [place] [address] [address] Jan, [place] [address] [address] Jan, Paranoid schizophrenia F20.0 [place] [address] [address] Jan, [place] [address] [address] Jan, [place] [address] [address] Jan, Diverticulitis K57.92 and Diarrhea, unsp ecified type R19.7 [place] [address] [address] Jan, Paranoid schizophrenia F20.0 and Tobacco abuse Z72.0 [place] [address] [address] Jan, Paranoid schizophrenia F20.0 [place] [address] [address] Jan, Tobacco use Z72.0 [place] [address] [address] 14 Jan, 2019 Hypothyroidism (acquired) E03.9 and Type 2 diabetes mellitus without complication, without long-term current use of insulin E11.9 [place] [address] [address] 10 Jan, 2019 Paranoid schizophrenia F20.0 [place] [address] [address] Jan, [place] [address] [address] Jan, Chronic obstructive pulmonary disease, u nspecified COPD type J44.9 [place] [address] [address] Dec, [place] [address] [address] Dec, Schizoaffective disorder, depressive typ e F25.1 [place] [address] [address] Dec, [place] [address] [address] Dec, [place] [address] [address] Dec, Type 2 diabetes mellitus with diabetic [...] abuse Z72.0 and Encounter for immunization Z23 [place] [address] [address] Dec, Encounter for immunization Z23 [place] [address] [address] Dec, [place] [address] [address] Dec, [place] [address] [address] Dec, [facility] [address] [address] Dec, [facility] [address] [address] Dec, [facility] [address] [address] Dec, [facility] [address] [address] Nov, Paranoid schizophrenia F20.0 [facility] [address] [address] Nov, [facility] [address] [address] Nov, [facility] [address] [address] Nov, [facility] [address] [address] Nov, Encounter for comprehensive diabetic monique t examination, type 2 diabetes mellitus E11.9 and Morbid obesity E66.01 [facility] [address] [address] Nov, [facility] [address] [address] Nov, [facility] [address] [address] Nov, [facility] [address] [address] Nov, Schizoaffective disorder, depressive typ e F25.1 [facility] [address] [address] Nov, Constipation by delayed colonic transit K59.01 [facility] [address] [address] Oct, [facility] [address] [address] Oct, [facility] [address] [address] Oct, [facility] [address] [address] Oct, Chronic obstructive pulmonary disease, u nspecified COPD type J44.9 [facility] [address] [address] Oct, [facility] [address] [address] Sep, Paranoid schizophrenia F20.0 [facility] [address] [address] Sep, [facility] [address] [address] Sep, [facility] [address] [address] Sep, Encounter for immunization Z23 [facility] [address] [address] Sep, [facility] [address] [address] Sep, Closed fracture of right ankle, sequela S82.891S ; Morbid obesity E66.01 and Heat rash L74.0 [place] [address] [address] Sep, Schizoaffective disorder, depressive typ e F25.1 [facility] [address] [address] Sep, [facility] [address] [address] Sep, [facility] [address] [address] Sep, [facility] [address] [address] Sep, [facility] [address] [place] [id number] [place] [address] Sep, [facility] [address] [address] Sep, [facility] [address] [address] Sep, [facility] [address] [address] Sep, [facility] [address] [address] Sep, [facility] [address] [address] August, Paranoid schizophrenia F20.0 [facility] [address] [address] August, [facility] [address] [address] August, [facility] [address] [address] August, [facility] [address] [address] August, Type 2 diabetes mellitus without complic ation, without long-term current use of insulin E11.9 ; Closed fracture of right ankle, initial encounter S82.891A ; Constipation by delayed colonic transit K59.01 ; Osteoporosis with pathological fracture, initial encounter M80.00XA ; Encounter for immunization Z23 and Morbid obesity E66.01 [facility] [address] [id number] [place] [address] August, [facility] [address] [address] August, [facility] [address] [address] August, Acquired deformity of musculoskeletal sy stem, unspecified M95.9 [facility] [address] [address] August, Paranoid schizophrenia F20.0 [facility] [address] [id number] [place] [address] August, [place] [address] [address] Jul, [place] [address] [address] Jul, Diabetic polyneuropathy associated with type 2 diabetes mellitus E11.42 ; Paranoid schizophrenia F20.0 ; Preoperative clearance Z01.818 and Morbid obesity E66.01 [place] [address] [address] Jul, Paranoid schizophrenia F20.0 [place] [address] [address] Jul, [place] [address] [address] Jul, [place] [address] [address] Jul, Cigarette nicotine dependence without co mplication F17.210 [place] [address] [address] Jul, Type 2 diabetes mellitus without complic ation, without long-term current use of insulin E11.9 and Hypothyroidism (acquired) E03.9 [place] [address] [address] Jul, Encounter for Medicare annual wellness e xam Z00.00 ; Morbid obesity due to excess calories E66.01 ; Diabetic polyneuropathy associated with type 2 diabetes mellitus E11.42 ; Chronic obstructive pulmonary disease, unspecified COPD type J44.9 ; Schizoaffective disorder, depressive type F25.1 ; Hypothyroidism (acquired) E03.9 and Morbid obesity E66.01 [place] [address] [address] Jun, Gastroesophageal reflux disease without esophagitis K21.9 [place] [address] [address] 28 Jun, 2018 Paranoid schizophrenia F20.0 [place] [address] [address] Jun, Schizoaffective disorder, depressive typ e F25.1 [place] [address] [address] Jun, [place] [address] [address] Jun, Schizoaffective disorder, depressive typ e F25.1 [place] [address] [address] Jun, Cigarette nicotine dependence without co mplication F17.210 [place] [address] [address] Jun, Type 2 diabetes mellitus without complic ation, without long-term current use of insulin E11.9 [place] [address] [address] Jun, [place] [address] [address] Jun, [place] [address] [address] Jun, [place] [address] [address] Jun, [place] [address] [address] Jun, [place] [address] [address] Jun, Paranoid schizophrenia F20.0 ; Type 2 di abetes mellitus without complication, without long-term current use of insulin E11.9 ; Hypothyroidism (acquired) E03.9 and Morbid obesity E66.01 [place] [address] [address] May, Paranoid schizophrenia F20.0 [place] [address] [address] 20 May, 2018 Hypothyroidism (acquired) E03.9 and Dysl ipidemia E78.5 [place] [address] [address] May, Cigarette nicotine dependence without co mplication F17.210 [place] [address] [address] May, [place] [address] [address] 14 May, 2018 Type 2 diabetes mellitus without complic ation, without long-term current use of insulin E11.9 ; Essential hypertension I10 ; Hypothyroidism (acquired) E03.9 and Dyslipidemia E78.5 [place] [address] [address] 13 May, 2018 [place] [address] [address] May, Schizoaffective disorder, depressive typ e F25.1 [place] [address] [address] May, Paranoid schizophrenia F20.0 [place] [address] [address] May, [facility] [address] [place] [address] 07 May, 19 [place] [address] [address] May, [place] [address] [address] May, Type 2 diabetes mellitus without complic ation, without long-term current use of insulin E11.9 ; Essential hypertension I10 ; Hypothyroidism (acquired) E03.9 and Dyslipidemia E78.5 [place] [address] [address] May, [place] [address] [address] 04 May, 2018 Acute nasopharyngitis J00 [facility] [address] [facility] [id number] [address] [place] [address] 04 May, 2018 Allergic rhinitis, unspecifi ed seasonality, unspecified trigger J30.9 [facility] [address] [address] May, [facility] [address] [address] Apr, Schizoaffective disorder, depressive typ e F25.1 [place] [address] [address] Apr, [place] [address] [address] Apr, Cigarette nicotine dependence without co mplication F17.210 [place] [address] [address] Apr, [place] [address] [address] Apr, Cigarette nicotine dependence without co mplication F17.210 [place] [address] [address] Apr, [place] [address] [address] Apr, Migraine without aura and without status migrainosus, not intractable G43.009 [place] [address] [address] Apr, Migraine without aura and without status migrainosus, not intractable G43.009 [place] [address] [address] Mar, Schizoaffective disorder, depressive typ e F25.1 ; BMI 45.0-49.9, adult Z68.42 and BMI 40.0-44.9, adult Z68.41 [place] [address] [address] 13 Mar, 2018 Primary insomnia F51.01 [place] [address] [address] Mar, [place] [address] [address] 14 Feb, 2018 Primary insomnia F51.01 [place] [address] [address] 08 Feb, 2018 [place] [address] [address] Jan, Schizoaffective disorder, depressive typ e F25.1 and BMI 45.0-49.9, adult Z68.42 [place] [address] [address] Jan, [place] [address] [address] Jan, Type 2 diabetes mellitus with diabetic n europathic arthropathy, 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 ; Menopausal syndrome (hot flashes) N95.1 ; BMI 40.0-44.9, adult Z68.41 and Morbid obesity E66.01 [place] [address] [address] Jan, Paranoid schizophrenia F20.0 [place] [address] [address] Jan, [place] [address] [address] Jan, Schizoaffective disorder, depressive typ e F25.1 [place] [address] [address] Jan, [place] [address] [address] Jan, Chronic obstructive pulmonary disease, u nspecified COPD type J44.9 ; BMI 45.0-49.9, adult Z68.42 ; Type 2 diabetes mellitus without complication, without long-term current use of insulin E11.9 ; Hypothyroidism (acquired) E03.9 ; Encounter for immunization Z23 ; Gastroesophageal reflux disease without esophagitis K21.9 ; Primary insomnia F51.01 and Acute nasopharyngitis J00 [facility] [address] [address] 27 Dec, 2017 [facility] [address] [address] 21 Dec, 2017 Schizoaffective disorder, depressive typ e F25.1 and BMI 45.0-49.9, adult Z68.42 [facility] [address] [address] 21 Dec, 2017 [place] [address] [address] 18 Dec, 2017 [facility] [address] [address] 18 Dec, 2017 Acute non-recurrent frontal sinusitis J0 1.10 [facility] [address] [address] 18 Dec, 2017 Acute non-recurrent frontal sinusitis J0 1.10 ; Weakness of left leg R29.898 ; At high risk for falls Z91.81 and BMI 45.0-49.9, adult Z68.42 [place] [address] [address] 17 Dec, 2017 [facility] [address] [address] 17 Dec, 2017 [facility] [address] [address] 10 Dec, 2017 Schizoaffective disorder, depressive typ e F25.1 [facility] [address] [facility] [id number] [address] [place] [address] 10 Dec, 2017 Acute nasopharyngitis J00 [facility] [address] [address] Dec, Schizoaffective disorder, depressive typ e F25.1 [place] [address] [address] Dec, [place] [address] [address] Nov, Schizoaffective disorder, depressive typ e F25.1 and BMI 45.0-49.9, adult Z68.42 [place] [address] [address] Nov, [place] [address] [address] Nov, [place] [address] [address] Nov, Schizoaffective disorder, depressive typ e F25.1 [place] [address] [address] Nov, Well woman exam Z01.419 ; BMI 45.0-49.9, adult Z68.42 ; Screening breast examination Z12.31 and Dietary counseling and surveillance Z71.3 [place] [address] [address] Nov, Paranoid schizophrenia F20.0 [place] [address] [address] Nov, Gastroesophageal reflux disease, esophag itis presence not specified K21.9 [place] [address] [address] Oct, Paranoid schizophrenia F20.0 [facility] [id number] [place] [address] Oct, Chronic pain syndrome G89.4 and Schizoaffective disorder, depressive type F25.1 [place] [address] [address] Oct, Chronic pain syndrome G89.4 and Schizoaf fective disorder, depressive type F25.1 [place] [address] [address] 16 Oct, 2017 Type 2 diabetes mellitus without complic ation, without long-term current use of insulin E11.9 [place] [address] [address] Oct, Essential hypertension I10 and DM neuro manif type II E11.[address] [address] Oct, [address] [address] Oct, Schizoaffective disorder, depressive typ e F25.1 and BMI 45.0-49.9, adult Z68.[address] [address] Oct, [address] [address] Oct, Paranoid schizophrenia F20.[address] [address] Oct, Type 2 diabetes mellitus with diabetic n europathic arthropathy, 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 ; Essential hypertension I10 ; Hypothyroidism (acquired) E03.9 ; Chronic obstructive pulmonary disease, unspecified COPD type J44.9 and Diabetic polyneuropathy associated with type 2 diabetes mellitus E11.[address] [address] Sep, Paranoid schizophrenia F20.[address] [address] Sep, Paranoid schizophrenia F20.0 and BMI 45. 0-49.9, adult Z68.[address] [address] Sep, Schizoaffective disorder, depressive typ e F25.[address] [address] Sep, [facility] [address] [address] Sep, Paranoid schizophrenia F20.0 [facility] [address] [address] Sep, [facility] [address] [address] Sep, Hypothyroidism (acquired) E03.9 [facility] [address] [address] Sep, [place] [address] [address] August, Schizoaffective disorder, depressive typ e F25.1 [place] [address] [address] August, [place] [address] [address] August, [facility] [address] [address] August, [facility] [address] [address] August, Paranoid schizophrenia F20.0 [place] [address] [address] August, History of lupus Z87.39 and Chronic pain syndrome G89.4 [facility] [address] [address] August, [facility] [address] [facility] [id number] [address] [address] August, Seasonal allergic rhinitis, unspecified trigger J30.2 and BMI 45.0-49.9, adult Z68.42 [facility] [address] [address] Jul, Schizoaffective disorder, depressive typ e F25.1 [place] [address] [address] Jul, [facility] [address] [address] 13 Jul, 2017 Hypothyroidism (acquired) E03.9 [facility] [address] [address] 11 Jul, 2017 Chronic obstructive pulmonary disease, u nspecified COPD type J44.9 and Type 2 diabetes mellitus without complication, without long-term current use of insulin E11.9 [facility] [address] [address] Jul, Paranoid schizophrenia F20.0 [place] [address] [address] Jun, Hypothyroidism (acquired) E03.9 and Seas onal allergic rhinitis due to pollen J30.1 [facility] [address] [facility] [id number] [address] [place] [address] Jun, Shortness of breath at rest R06.02 ; COPD exacerbation J44.1 and BMI 45.0-49.9, adult Z68.42 [place] [address] [address] Jun, [facility] [address] [address] Jun, Paranoid schizophrenia F20.0 ; Depressio n with anxiety F41.8 and BMI 45.0-49.9, adult Z68.42 [facility] [address] [address] Jun, Schizoaffective disorder, depressive typ e F25.1 [facility] [id number] [place] [id number] Jun, Dental caries K02.9 [facility] [address] [address] Jun, Paranoid schizophrenia F20.0 [facility] [address] [address] May, Migraine without aura and without status migrainosus, not intractable G43.009 ; DM neuro manif type II E11.49 and Type 2 diabetes mellitus without complication, without long-term current use of insulin E11.9 [facility] [address] [address] May, Migraine without aura and without status migrainosus, not intractable G43.009 [facility] [address] [address] May, Depression with anxiety F41.8 [facility] [id number] [place] [id number] May, [facility] [address] [address] May, [facility] [address] [address] May, [facility] [address] [address] May, Hypothyroidism (acquired) E03.9 [place] [address] [address] May, Paranoid schizophrenia F20.0 [facility] [address] [address] May, Type 2 diabetes mellitus without complic [...] N32.81 and Controlled substance agreement signed Z79.899 [facility] [address] [address] [place] [address] May, Controlled substance agreement signed Z7 9.899 [facility] [id number] [place] [address] Apr, [facility] [id number] [place] [id number] Apr, Dental examination Z01.20 [facility] [address] [address] Apr, Paranoid schizophrenia F20.0 [facility] [address] [address] Apr, Hypertension, unspecified type I10 [facility] [address] [address] Apr, Paranoid schizophrenia F20.0 [facility] [address] [address] Apr, [facility] [address] [address] Apr, Tobacco abuse Z72.0 [facility] [address] [address] Apr, [facility] [address] [address] Mar, [facility] [address] [address] Mar, Paranoid schizophrenia F20.0 and BMI 45. 0-49.9, adult Z68.42 [facility] [address] [address] Mar, Schizoaffective disorder, depressive typ e F25.1 [facility] [address] [address] Mar, [facility] [address] [address] Mar, Hypothyroidism, unspecified type E03.9 [facility] [address] [address] Mar, Schizoaffective disorder, depressive typ e F25.1 [facility] [address] [facility] [id number] [address] [place] [address] Feb, Gastroenteritis K52.9 and BM I 45.0-49.9, adult Z68.42 [place] [address] [address] Feb, [place] [address] [address] Feb, [place] [address] [address] Feb, [place] [address] [address] Feb, [address] [address] Feb, Paranoid schizophrenia F20.[address] [address] Feb, Gastroesophageal reflux disease without esophagitis K21.9 ; Other seasonal allergic rhinitis J30.2 ; Other allergic rhinitis J30.89 ; Tobacco abuse Z72.0 and BMI 40.0-44.9, adult Z68.[address] [address] Feb, Onychomycosis B35.1 ; Callus of foot L84 and DM neuro manif type II E11.49 [facility] [address] [address] Jan, Chronic allergic rhinitis J30.[address] [address] Jan, [place] [address] [address] Jan, Schizoaffective disorder, depressive typ e F25.1 [place] [address] [address] 10 Jan, 2017 [facility] [address] [id number] [place] [address] 07 Jan, 2017 Sore throat J02.9 and Season al allergic rhinitis due to other allergic trigger J30.89 [place] [address] [address] Jan, [place] [address] [address] Jan, [facility] [address] [address] [place] [address] Jan, Chronic allergic rhinitis J3 0.9 [place] [address] [address] 27 Dec, 2016 Paranoid schizophrenia F20.0 ; Primary i nsomnia F51.01 and Schizoaffective disorder, depressive type F25.1 [place] [address] [address] Dec, Chronic pain syndrome G89.4 ; Cervicalgi a of mcwgvace-qrgfppo-awwkk region M54.2 ; Menopausal syndrome (hot flashes) N95.1 and Encounter for immunization Z23 [place] [address] [address] 14 Dec, 2016 [place] [address] [address] 13 Dec, 2016 [place] [address] [address] 08 Dec, 2016 Paranoid schizophrenia F20.0 [place] [address] [address] Dec, Schizoaffective disorder, depressive typ e F25.1 [place] [address] [address] Nov, Hypothyroidism, unspecified type E03.9 [facility] [address] [address] [address] [place] [address] Nov, Acute seasonal allergic rhin itis due to other allergen J30.89 [place] [address] [address] Nov, [place] [address] [address] Nov, Hypothyroidism, unspecified type E03.9 a nd Other elevated white blood cell (WBC) count D72.828 [place] [address] [address] Nov, Schizoaffective disorder, depressive typ e F25.1 [place] [address] [address] Nov, Paranoid schizophrenia F20.0 [place] [address] [address] Nov, Type 2 diabetes mellitus without complic ation, without long-term current use of insulin E11.9 ; Morbid obesity due to excess calories E66.01 and Chronic pain syndrome G89.4 [place] [address] [address] Oct, Paranoid schizophrenia F20.0 [place] [address] [address] Oct, [place] [address] [address] Oct, Schizoaffective disorder, depressive typ e F25.1 [place] [address] [address] Oct, Hypothyroidism, unspecified type E03.9 a nd Other elevated white blood cell (WBC) count D72.828 [place] [address] [address] Oct, Morbid obesity due to excess calories E6 6.01 ; Chronic obstructive pulmonary disease, unspecified COPD type J44.9 ; History of lupus Z87.39 ; Hypothyroidism, unspecified type E03.9 ; Gastroesophageal reflux disease without esophagitis K21.9 ; Primary insomnia F51.01 and Chronic pain syndrome G89.4 [facility] [address] [address] 30 Sep, 2016 [facility] [address] [address] Sep, [facility] [address] [address] Sep, [facility] [address] [address] Sep, Paranoid schizophrenia F20.0 [facility] [address] [address] Sep, [facility] [address] [address] Sep, Paranoid schizophrenia F20.0 [facility] [address] [address] Sep, [facility] [address] [address] August, Paranoid schizophrenia F20.0 [facility] [address] [address] Jul, [facility] [address] [address] Jul, Type 2 diabetes mellitus without complic ation, without long-term current use of insulin E11.9 ; Morbid obesity due to excess calories E66.01 ; Depression with anxiety F41.8 ; Hypothyroidism, unspecified type E03.9 ; Seasonal allergic rhinitis due to other allergic trigger J30.89 ; Pain, dental K08.89 and Gastroesophageal reflux disease without esophagitis K21.9 [facility] [id number] [place] [id number] Jul, Dental examination Z01.20 [facility] [address] [address] Jul, Paranoid schizophrenia F20.0 [place] [address] [address] 13 Jun, 2016 Paranoid schizophrenia F20.0 and Depress ion with anxiety F41.8 [place] [address] [address] Jun, Paranoid schizophrenia F20.0 and Depress ion with anxiety F41.8 [place] [address] [address] Jun, [place] [address] [address] Jun, [facility] W[facility] IN [address] [address] Jun, Seasonal allergic rhinitis d ue to other allergic trigger J30.89 [facility] [address] [address] May, Sore throat J02.9 ; Other vi ral agents as the cause of diseases classified elsewhere B97.89 and Acute upper respiratory infection, unspecified J06.[address] [address] May, Paranoid schizophrenia F20.0 and Depress ion with anxiety F41.8 [place] [address] [address] Apr, Other seasonal allergic rhinitis J30.2 [place] [address] [address] Apr, Paranoid schizophrenia F20.0 and Depress ion with anxiety F41.8 [facility] IN [address] [address] Apr, Bronchitis J40 and Sore thro at J02.9 [place] [address] [address] Apr, Type 2 diabetes mellitus without complic ation, without long-term current use of insulin E11.9 [facility] [address] [facility] [id number] [address] [place] [address] Apr, Bronchitis J40 [place] [address] [address] Apr, [facility] [address] [address] Apr, [place] [address] [address] Mar, Type 2 diabetes mellitus without complic [...] R60.9 and Other seasonal allergic rhinitis J30.2 [place] [address] [address] Mar, Paranoid schizophrenia F20.0 and Depress ion with anxiety F41.8 [place] [address] [address] Feb, [place] [address] [address] Feb, [place] [address] [address] Feb, [place] [address] [address] Feb, [place] [address] [address] Feb, Type 2 diabetes mellitus without complic ation, without long-term current use of insulin E11.9 ; ARIAS on CPAP G47.33 and Preoperative evaluation to rule out surgical contraindication Z01.818 [place] [address] [address] Feb, Paranoid schizophrenia F20.0 and Depress ion with anxiety F41.8 [facility] [address] [address] Jan, [facility] [address] [address] Jan, Paranoid schizophrenia F20.0 and Depress ion with anxiety F41.8 [facility] [address] [address] Jan, [facility] [address] [address] 14 Jan, 2016 Muscle strain T14.8 [facility] [address] [address] 10 Jan, 2016 Paranoid schizophrenia F20.0 [facility] [address] [address] 07 Jan, 2016 [facility] [address] [address] 05 Jan, 2016 Paranoid schizophrenia F20.0 and Depress ion with anxiety F41.8 [facility] [address] [address] 05 Jan, 2016 [facility] [address] [address] Jan, [facility] [address] [address] 28 Dec, 2015 [facility] [address] [address] 23 Dec, 2015 Paranoid schizophrenia F20.0 [facility] [address] [address] 16 Dec, 2015 Paranoid schizophrenia F20.0 and Depress ion with anxiety F41.8 [facility] [address] [address] 31 Nov, 2015 [facility] [address] [address] Nov, Paranoid schizophrenia F20.0 [place] [address] [address] Nov, Paranoid schizophrenia F20.0 and Depress ion with anxiety F41.8 [place] [address] [address] Nov, Type 2 diabetes mellitus without complic ation, without long-term current use of insulin E11.9 ; Paranoid schizophrenia F20.0 ; Chronic obstructive pulmonary disease, unspecified COPD type J44.9 ; Morbid obesity due to excess calories E66.01 and Parkinsonian tremor G20 [place] [address] [address] Nov, [place] [address] [address] Oct, Paranoid schizophrenia F20.0 [place] [address] [address] Oct, Paranoid schizophrenia F20.0 [place] [address] [address] Oct, Paranoid schizophrenia F20.0 and Depress ion with anxiety F41.8 [place] [address] [address] Oct, [place] [address] [address] Oct, Paranoid schizophrenia F20.0 and Depress ion with anxiety F41.8 [place] [address] [address] Oct, Nasal sore J34.89 [place] [address] [address] Oct, Type 2 diabetes mellitus without complic ation, without long-term current use of insulin E11.9 ; Depression with anxiety F41.8 ; Hypothyroidism, unspecified type E03.9 and History of lupus Z87.39 [place] [id number] [place] [address] Oct, [facility] [address] [address] Oct, Type 2 diabetes mellitus without complic [...] edema R60.9 and History of lupus Z87.39 [facility] [address] [address] Feb, [facility] [address] [address] Jan, [facility] [address] [address] Jan, [facility] [address] [address] Jan, [facility] [address] [address] Dec, [facility] [address] [address] Nov, [facility] [address] [address] Nov, [facility] [address] [address] Oct, [facility] [address] [address] Oct, [facility] [address] [address] Oct, [facility] [address] [id number] [place] [address] 12 Sep, 2014 Allergic rhinitis 477.9 [facility] [id number] [place] [address] 11 Sep, 2014 Rhinitis, allergic 477.9 [facility] [place] [facility] [address] [id number] [place] [address] 10 Sep, 2014 Rhinitis, allergic 477.9 [facility] [address] [id number] [place] [address] Sep, [facility] [place] [facility] [address] [id number] [place] [address] August, [facility] [place] [facility] [id number] [place] [address] August, [facility] [place] [facility] [address] [id number] [place] [address] August, [facility] [place] [facility] [address] [id number] [place] [address] 28 Jul, 2014 [facility] [place] [facility] [address] [id number] [place] [address] Jul, [facility] [place] [facility] [id number] [place] [address] 13 Jul, 2014 [facility] [place] [facility] [address] [id number] [place] [address] 16 Jun, 2014 [facility] [place] [facility] [id number] [place] [address] 16 Jun, 2014 [facility] [place] [facility] [address] [id number] [place] [address] Jun, [facility] [place] [facility] [address] [id number] [place] [address] Jun, [facility] [place] [facility] [address] [id number] [place] [address] Jun, [facility] [place] [facility] [address] [id number] [place] [address] Jun, [facility] [place] [facility] [address] [id number] [place] [address] Jun, 2014 [facility] [place] [facility] [address] [id number] [place] [address] Jun, [facility] [place] [facility] [address] [id number] [place] [address] May, 2014 [facility] [place] [facility] [address] [id number] [place] [address] May, 2014 [facility] [place] [facility] [address] [id number] [place] [address] May, 2014 [facility] [place] [facility] [address] [id number] [place] [address] May, [facility] [place] [facility] [address] [id number] [place] [address] Apr, [facility] [place] [facility] [address] [id number] [place] [address] Mar, [facility] [place] [facility] [address] [id number] [place] [address] Mar, [facility] [place] [facility] [address] [id number] [place] [address] Mar, [facility] [place] [facility] [address] [id number] [place] [address] Mar, [facility] [place] [facility] [address] [id number] [place] [address] Mar, [facility] [place] [facility] [address] [id number] [place] [address] Mar, [facility] [place] [facility] [address] [id number] [place] [address] Mar, [facility] [place] [facility] [address] [id number] [place] [address] Mar, [facility] [place] [facility] [address] [id number] [place] [address] Mar, [facility] [place] [facility] [address] [id number] [place] [address] Feb, [facility] [place] [facility] [address] [facility] [id number] [place] [address] Feb, [facility] [place] [facility] [address] [facility] [id number] [place] [address] 17 Feb, 2014 [facility] [place] [facility] [address] [id number] [place] [address] 17 Feb, 2014 [facility] [place] [facility] [address] [id number] [place] [address] 14 Feb, 2014 [facility] [place] [facility] [address] [facility] [id number] [place] [address] 14 Feb, 2014 [facility] [place] [facility] [address] [id number] [place] [address] Feb, [facility] [place] [facility] [address] [id number] [place] [address] Feb, [facility] [place] [facility] [address] [id number] [place] [address] 23 Jan, 2014 [facility] [place] [facility] [address] [id number] [place] [address] 23 Jan, 2014 [facility] [place] [facility] [address] [id number] [place] [address] 16 Jan, 2014 [facility] [place] [facility] [address] [id number] [place] [address] 16 Jan, 2014 [facility] [place] [facility] [address] [id number] [place] [address] 15 Jan, 2014 [facility] [place] [facility] [address] [id number] [place] [address] 15 Jan, 2014 [facility] [place] [facility] [address] [id number] [place] [address] 14 Jan, 2014 [facility] [place] [facility] [address] [id number] [place] [address] 14 Jan, 2014 [facility] [place] [facility] [address] [id number] [place] [address] 14 Jan, 2014 [facility] [place] [facility] [address] [id number] [place] [address] 14 Jan, 2014 [facility] [place] [facility] [address] [id number] [place] [address] 18 Dec, 2013 [facility] [place] [facility] [address] [facility] [id number] [place] [address] Dec, [facility] [place] [facility] [address] [id number] [place] [address] Dec, [facility] [place] [facility] [address] [facility] [id number] [place] [address] Dec, [facility] [place] [facility] [address] [facility] [id number] [place] [address] Nov, [facility] [place] [facility] [address] [id number] [place] [address] Nov, [facility] [place] [facility] [address] [id number] [place] [address] Nov, [facility] [place] [facility] [address] [id number] [place] [address] Nov, [facility] [place] [facility] [address] [id number] [place] [address] Nov, [facility] [place] [facility] [address] [id number] [place] [address] Oct, [facility] [place] [facility] [address] [id number] [place] [address] Oct, [facility] [place] [facility] [address] [id number] [place] [address] Oct, [facility] [place] [facility] [address] [facility] [id number] [place] [address] Oct, [facility] [place] [facility] [address] [id number] [place] [address] Sep, [facility] [place] [facility] [address] [id number] [place] [address] Sep, [facility] [place] [facility] [address] [id number] [place] [address] Sep, [facility] [place] [facility] [address] [id number] [place] [address] Sep, [facility] [place] [facility] [address] [id number] [place] [address] Sep, [facility] [place] [facility] [address] [id number] [place] [address] Sep, [facility] [place] [facility] [address] [id number] [place] [address] Sep, [facility] [place] [facility] [address] [id number] [place] [address] Sep, [facility] [place] [facility] [address] [id number] [place] [address] August, [facility] [place] [facility] [address] [id number] [place] [address] August, [facility] [place] [facility] [address] [id number] [place] [address] August, [facility] [place] [facility] [address] [id number] [place] [address] August, [facility] [place] [facility] [address] [id number] [place] [address] August, [facility] [place] [facility] [address] [id number] [place] [address] August, [facility] [place] [facility] [address] [id number] [place] [address] August, [facility] [place] [facility] [address] [id number] [place] [address] Jul, [facility] [place] [facility] [address] [id number] [place] [address] Jul, [facility] [place] [facility] [address] [id number] [place] [address] Jul, [facility] [place] [facility] [address] [id number] [place] [address] Jul, [facility] [place] [facility] [address] [id number] [place] [address] Jul, [facility] [place] [facility] [address] [facility] [id number] [place] [address] Jul, [facility] [place] [facility] [address] [facility] [id number] [place] [address] Jul, [facility] [place] [facility] [address] [facility] [id number] [place] [address] Jul, [facility] [place] [facility] [address] [id number] [place] [address] Jul, [facility] [place] [facility] [address] [facility] [id number] [place] [address] Jul, [facility] [place] [facility] [address] [id number] [place] [address] Jul, [facility] [place] [facility] [address] [id number] [place] [address] Jul, [facility] [place] [facility] [address] [id number] [place] [address] Jun, [facility] [place] [facility] [address] [facility] [id number] [place] [address] Jun, [facility] [place] [facility] [address] [id number] [place] [address] Jun, [facility] [place] [facility] [address] [id number] [place] [address] Jun, [facility] [place] [facility] [address] [id number] [place] [address] Jun, [facility] [place] [facility] [address] [facility] [id number] [place] [address] May, [facility] [place] [facility] [address] [facility] [id number] [place] [address] May, [facility] [place] [facility] [address] [id number] [place] [address] May, [facility] [place] [facility] [address] [id number] [place] [address] May, [facility] [place] [facility] [address] [id number] [place] [address] May, 2013 [facility] [place] [facility] [address] [id number] [place] [address] May, 2013 [facility] [place] [facility] [address] [id number] [place] [address] May, [facility] [place] [facility] [address] [id number] [place] [address] May, [facility] [place] [facility] [id number] [place] [address] Mar, [facility] [place] [facility] [address] [id number] [place] [address] Mar, [facility] [place] [facility] [id number] [place] [address] Mar, [facility] [place] [facility] [id number] [place] [address] Mar, [facility] [place] [facility] [id number] [place] [address] Mar, [facility] [place] [facility] [address] [id number] [place] [address] Mar, [facility] [place] [facility] [id number] [place] [address] Feb, [facility] [place] [facility] [address] [id number] [place] [address] Feb, [facility] [place] [facility] [id number] [place] [address] Jan, [facility] [place] [facility] [address] [id number] [place] [address] Jan, [facility] [place] [facility] [id number] [place] [address] Jan, [facility] [place] [facility] [address] [id number] [place] [address] Jan, [facility] [place] [facility] [id number] [place] [address] Jan, [facility] [place] [facility] [address] [id number] [place] [address] Jan, [facility] [place] [facility] [address] [id number] [place] [address] Jan, [facility] [place] [facility] [address] [id number] [place] [address] Jan, [facility] [place] [facility] [address] [id number] [place] [address] Jan, [facility] [place] [facility] [address] [facility] [id number] [place] [address] Jan, [facility] [place] [facility] [address] [id number] [place] [address] Dec, [facility] [place] [facility] [address] [id number] [place] [address] Nov, [facility] [place] [facility] [address] [id number] [place] [address] Nov, [facility] [place] [facility] [address] [id number] [place] [address] Nov, [facility] [place] [facility] [address] [id number] [place] [address] Oct, [facility] [place] [facility] [address] [id number] [place] [address] Oct, [facility] [place] [facility] [address] [id number] [place] [address] August, [facility] [place] [facility] [address] [id number] [place] [address] Apr, [facility] [place] [facility] [address] [id number] [place] [address] Apr, [facility] [place] [facility] [address] [id number] [place] [address] Feb, [facility] [place] [facility] [address] [id number] [place] [address] Feb, [facility] [place] [facility] [address] [id number] [place] [address] Dec, [facility] [address] [id number] [place] [address] Dec, [facility] [address] [id number] [place] [address] Oct, [facility] [address] [id number] [place] [address] Oct, [facility] [address] [id number] [place] [address] Oct, [facility] [address] [id number] [place] [address] Jul, IMMUNIZATIONS No Known Immunizations SOCIAL HISTORY [...] hospitalizations for psychosis/mental illness, last one in [facility] 4 years ago Hospitalization History broken ankle 08/2018
--- OUTSIDE RECORDS SUMMARY | 2019-07-07 04:05 | XMS REPORT ---
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 Name Role Phone RADHA ROJAS Unavailable PROBLEMS Type Condition ICD9-CM Code DQT13-NA Code Onset Dates Condition S tatus SNOMED Code Problem Type 2 diabetes mellitus wit hout complication, without long-term current use of insulin E11.9 Active 033207930 Problem Gastroesophageal reflux disease without esophagitis K21.9 Active 139410586 Problem History of lupus Z87.39 Active 312 176056 Problem Schizoaffective disorder, depressive type F25.1 Active 51365806 Problem Seasonal allergic rhinitis due to other allergic trigger J30.89 Active 220759147 Problem DM neuro manif type II E11.49 Active 09933748 Problem Primary insomnia F51.01 Active 397 2004 Problem Diabetic polyneuropathy associated with type 2 d iabetes mellitus E11.42 Active 912471576 Problem Chronic pain syndrome G89.4 Active 776705754 Problem 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, 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 Active 296950026 Problem Morbid obesity due to excess calories E66.01 Active 259280515 Problem OAB (overactive bladder) N32.81 Activ e 152112670 Problem Paranoid schizophrenia F20.0 Active 74446535 Problem Gastroesophageal reflux disease, esophagitis pre sence not specified K21.9 Active 490908687 Problem Tobacco abuse Z72.0 Active 252125 000 Problem Dyslipidemia E78.5 Active 2741247 07 Problem Migraine without aura and without status migrain osus, not intractable G43.009 Active 219563006 Problem Hypothyroidism (acquired) E03.9 Acti ve 155761130 Problem Essential hypertension I10 Active 68951726 Problem Seasonal allergic rhinitis due to pollen J30.1 Active 61926195 Problem Chronic obstructive pulmonary disease, unspecified COPD ty pe J44.9 Active 19693180 Problem COPD exacerbation J44.1 Active 19 1109328 Problem Depression with anxiety F41.8 Active 969922651 Problem Cigarette nicotine dependence without complication F17.210 Active 90676523 Problem Allergic rhinitis, unspecified seasonality, unspecifie d trigger J30.9 Active 08389721 Problem Constipation by delayed colonic transit K59.01 Active 29057708 Problem Constipation, unspecified constipation type K59.00 Active 41688468 Problem Other allergic rhinitis J30.89 Active 518221305 Problem Constipation, unspecified constipation type K59.00 Active 48725080 Problem Menopausal syndrome (hot flashes) N95.1 Active 701254458 Problem Other seasonal allergic rhinitis J30.2 Active 878983054 Problem BMI 31.0-31.9,adult Z68.31 Active 421373617 Problem Vaginal dryness, menopausal N95.1 Ac tive 88357642 Problem Diverticulitis K57.92 Active 98766 6006 Problem BMI 40.0-44.9, adult Z68.41 Active 098568531 ALLERGIES No Information ENCOUNTERS Encounter Location Date Diagnosis [facility] [address] [address] Jun, [facility] [address] [address] 11 May, 2019 [facility] [address] [address] Apr, [facility] [address] [address] Apr, Paranoid schizophrenia F20.0 [facility] [address] [address] Apr, [facility] [address] [address] Apr, [facility] [address] [facility] [id number] [address] [place] [address] Apr, Sore throat J02.9 and Non-re current acute suppurative otitis media of both ears without spontaneous rupture of tympanic membranes H66.003 [facility] [address] [address] Apr, [facility] [address] [address] Apr, [facility] [address] [address] Apr, Schizoaffective disorder, depressive typ e F25.1 [facility] [address] [address] Mar, Schizoaffective disorder, depressive typ e F25.1 [facility] [address] [address] Mar, [facility] [address] [facility] [id number] [address] [place] [address] Mar, Acute nasopharyngitis J00 [facility] [address] [address] Mar, [facility] [address] [address] Mar, [facility] [address] [id number] Mar, Caries K02.9 [facility] [address] [id number] Feb, Dental examination Z01.20 and Caries K02 .9 [facility] [address] [address] Feb, Constipation, unspecified constipation t ype K59.00 ; Acute hemorrhoid K64.9 ; Tobacco abuse Z72.0 ; BMI 40.0-44.9, adult Z68.41 and Dyslipidemia E78.5 [facility] [address] [address] Feb, [facility] [address] [address] Feb, [facility] [address] [address] Feb, Constipation, unspecified constipation t ype K59.00 ; Left lower quadrant abdominal pain R10.32 ; Hypothyroidism (acquired) E03.9 ; Tobacco abuse Z72.0 and BMI 40.0-44.9, adult Z68.41 [place] [address] [address] Feb, [place] [address] [address] Feb, Chronic obstructive pulmonary disease, u nspecified COPD type J44.9 [place] [address] [address] Jan, [place] [address] [place] [address] Jan, Paranoid schizophrenia F20.0 [place] [address] [address] Jan, [place] [address] [address] Jan, [place] [address] [address] Jan, Diverticulitis K57.92 and Diarrhea, unsp ecified type R19.7 [place] [address] [address] Jan, Paranoid schizophrenia F20.0 and Tobacco abuse Z72.0 [place] [address] [address] Jan, Paranoid schizophrenia F20.0 [place] [address] [address] Jan, Tobacco use Z72.0 [place] [address] [address] Jan, Hypothyroidism (acquired) E03.9 and Type 2 diabetes mellitus without complication, without long-term current use of insulin E11.9 [place] [address] [address] Jan, Paranoid schizophrenia F20.0 [place] [address] [address] Jan, [facility] [address] [address] Jan, Chronic obstructive pulmonary disease, u nspecified COPD type J44.9 [facility] [address] [address] Dec, [place] [address] [address] Dec, Schizoaffective disorder, depressive typ e F25.1 [place] [address] [address] Dec, [place] [address] [address] Dec, [place] [address] [address] Dec, Type 2 diabetes mellitus with diabetic [...] abuse Z72.0 and Encounter for immunization Z23 [place] [address] [address] Dec, Encounter for immunization Z23 [place] [address] [address] Dec, [place] [address] [address] Dec, [place] [address] [address] Dec, [place] [address] [address] Dec, [facility] [address] [address] Dec, [facility] [address] [address] Dec, [facility] [address] [address] Nov, Paranoid schizophrenia F20.0 [facility] [address] [address] Nov, [facility] [address] [address] Nov, [facility] [address] [address] Nov, [facility] [address] [address] Nov, Encounter for comprehensive diabetic monique t examination, type 2 diabetes mellitus E11.9 and Morbid obesity E66.01 [facility] [address] [address] Nov, [facility] [address] [address] Nov, [facility] [address] [address] Nov, [facility] [address] [address] Nov, Schizoaffective disorder, depressive typ e F25.1 [facility] [address] [address] Nov, Constipation by delayed colonic transit K59.01 [facility] [address] [address] Oct, [facility] [address] [address] Oct, [facility] [address] [address] Oct, [facility] [address] [address] Oct, Chronic obstructive pulmonary disease, u nspecified COPD type J44.9 [facility] [address] [address] Oct, [facility] [address] [address] Sep, Paranoid schizophrenia F20.0 [facility] [address] [address] Sep, [facility] [address] [address] Sep, [place] [address] [address] Sep, Encounter for immunization Z23 [place] [address] [address] Sep, [place] [address] [address] Sep, Closed fracture of right ankle, sequela S82.891S ; Morbid obesity E66.01 and Heat rash L74.0 [place] [address] [address] Sep, Schizoaffective disorder, depressive typ e F25.1 [facility] [address] [address] Sep, [facility] [address] [address] Sep, [facility] [address] [address] Sep, [facility] [address] [address] Sep, [facility] [address] [address] Sep, [facility] [address] [place] [id number] [place] [address] Sep, [facility] [address] [place] [id number] [place] [address] Sep, [facility] [address] [place] [id number] [place] [address] Sep, [facility] [address] [place] [id number] [place] [address] Sep, [facility] [address] [address] August, Paranoid schizophrenia F20.0 [facility] [address] [place] [id number] [place] [address] August, [facility] [address] [address] August, [facility] [address] [place] [id number] [place] [address] August, [facility] [address] [place] [id number] [place] [address] August, Type 2 diabetes mellitus without complic ation, without long-term current use of insulin E11.9 ; Closed fracture of right ankle, initial encounter S82.891A ; Constipation by delayed colonic transit K59.01 ; Osteoporosis with pathological fracture, initial encounter M80.00XA ; Encounter for immunization Z23 and Morbid obesity E66.01 [facility] [address] [place] [id number] [place] [address] August, [facility] [address] [place] [id number] [place] [address] August, [facility] [address] [place] [id number] [place] [address] August, Acquired deformity of musculoskeletal sy stem, unspecified M95.9 [facility] [address] [id number] [place] [address] August, Paranoid schizophrenia F20.0 [facility] [address] [place] [id number] [address] August, [place] [address] [address] Jul, [place] [address] [address] Jul, Diabetic polyneuropathy associated with type 2 diabetes mellitus E11.42 ; Paranoid schizophrenia F20.0 ; Preoperative clearance Z01.818 and Morbid obesity E66.01 [place] [address] [address] Jul, Paranoid schizophrenia F20.0 [place] [address] [address] Jul, [place] [address] [address] Jul, [address] [address] Jul, Cigarette nicotine dependence without co mplication F17.[address] [address] Jul, Type 2 diabetes mellitus without complic ation, without long-term current use of insulin E11.9 and Hypothyroidism (acquired) E03.[address] [address] Jul, Encounter for Medicare annual wellness e xam Z00.00 ; Morbid obesity due to excess calories E66.01 ; Diabetic polyneuropathy associated with type 2 diabetes mellitus E11.42 ; Chronic obstructive pulmonary disease, unspecified COPD type J44.9 ; Schizoaffective disorder, depressive type F25.1 ; Hypothyroidism (acquired) E03.9 and Morbid obesity E66.01 [place] [address] [address] Jun, Gastroesophageal reflux disease without esophagitis K21.9 [place] [address] [address] Jun, Paranoid schizophrenia F20.0 [place] [address] [place] [id number] 27 Jun, 2018 Schizoaffective disorder, depressive typ e F25.1 [place] [address] [address] Jun, [place] [address] [address] Jun, Schizoaffective disorder, depressive typ e F25.1 [place] [address] [place] [id number] Jun, Cigarette nicotine dependence without co mplication F17.210 [place] [address] [place] [id number] Jun, Type 2 diabetes mellitus without complic ation, without long-term current use of insulin E11.9 [place] [address] [address] Jun, [place] [address] [address] Jun, [place] [address] [address] Jun, [place] [address] [address] Jun, [place] [address] [address] Jun, [place] [address] [place] [id number] Jun, Paranoid schizophrenia F20.0 ; Type 2 di abetes mellitus without complication, without long-term current use of insulin E11.9 ; Hypothyroidism (acquired) E03.9 and Morbid obesity E66.01 [place] [address] [address] 28 May, 2018 Paranoid schizophrenia F20.0 [place] [address] [address] May, Hypothyroidism (acquired) E03.9 and Dysl ipidemia E78.5 [place] [address] [address] 19 May, 2018 Cigarette nicotine dependence without co mplication F17.210 [place] [address] [address] 18 May, 2018 [place] [address] [address] 14 May, 2018 Type 2 diabetes mellitus without complic ation, without long-term current use of insulin E11.9 ; Essential hypertension I10 ; Hypothyroidism (acquired) E03.9 and Dyslipidemia E78.5 [place] [address] [address] 13 May, 2018 [place] [address] [address] 08 May, 2018 Schizoaffective disorder, depressive typ e F25.1 [place] [address] [address] 08 May, 2018 Paranoid schizophrenia F20.0 [place] [address] [address] 07 May, 2018 [facility] [address] [place] [address] 07 May, 19 [place] [address] [address] May, [place] [address] [address] May, Type 2 diabetes mellitus without complic ation, without long-term current use of insulin E11.9 ; Essential hypertension I10 ; Hypothyroidism (acquired) E03.9 and Dyslipidemia E78.5 [place] [address] [address] 04 May, 2018 [place] [address] [address] May, Acute nasopharyngitis J00 [facility] [address] [facility] [id number] [address] [place] [address] 04 May, 2018 Allergic rhinitis, unspecifi ed seasonality, unspecified trigger J30.9 [facility] [address] [address] 04 May, 2018 [facility] [address] [address] Apr, Schizoaffective disorder, depressive typ e F25.1 [place] [address] [address] Apr, [place] [address] [address] Apr, Cigarette nicotine dependence without co mplication F17.210 [place] [address] [address] 17 Apr, 2018 [place] [address] [address] Apr, Cigarette nicotine dependence without co mplication F17.210 [place] [address] [address] Apr, [place] [address] [address] Apr, Migraine without aura and without status migrainosus, not intractable G43.009 [place] [address] [address] Apr, Migraine without aura and without status migrainosus, not intractable G43.009 [place] [address] [address] Mar, Schizoaffective disorder, depressive typ e F25.1 ; BMI 45.0-49.9, adult Z68.42 and BMI 40.0-44.9, adult Z68.41 [place] [address] [address] Mar, Primary insomnia F51.01 [place] [address] [address] Mar, [place] [address] [address] Feb, Primary insomnia F51.01 [place] [address] [address] Feb, [place] [address] [address] Jan, Schizoaffective disorder, depressive typ e F25.1 and BMI 45.0-49.9, adult Z68.42 [place] [address] [address] Jan, [place] [address] [address] Jan, Type 2 diabetes mellitus with diabetic n europathic arthropathy, 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 ; Menopausal syndrome (hot flashes) N95.1 ; BMI 40.0-44.9, adult Z68.41 and Morbid obesity E66.01 [place] [address] [address] Jan, Paranoid schizophrenia F20.0 [place] [address] [address] Jan, [place] [address] [address] Jan, Schizoaffective disorder, depressive typ e F25.1 [place] [address] [address] Jan, [place] [address] [address] Jan, Chronic obstructive pulmonary disease, u nspecified COPD type J44.9 ; BMI 45.0-49.9, adult Z68.42 ; Type 2 diabetes mellitus without complication, without long-term current use of insulin E11.9 ; Hypothyroidism (acquired) E03.9 ; Encounter for immunization Z23 ; Gastroesophageal reflux disease without esophagitis K21.9 ; Primary insomnia F51.01 and Acute nasopharyngitis J00 [place] [address] [address] 27 Dec, 2017 [facility] [address] [address] 21 Dec, 2017 Schizoaffective disorder, depressive typ e F25.1 and BMI 45.0-49.9, adult Z68.42 [facility] [address] [address] Dec, [place] [address] [address] 18 Dec, 2017 [facility] [address] [address] 18 Dec, 2017 Acute non-recurrent frontal sinusitis J0 1.10 [place] [address] [address] 18 Dec, 2017 Acute non-recurrent frontal sinusitis J0 1.10 ; Weakness of left leg R29.898 ; At high risk for falls Z91.81 and BMI 45.0-49.9, adult Z68.42 [place] [address] [address] 17 Dec, 2017 [place] [address] [address] 17 Dec, 2017 [facility] [address] [address] 10 Dec, 2017 Schizoaffective disorder, depressive typ e F25.1 [facility] [address] [facility] [id number] [address] [place] [address] 10 Dec, 2017 Acute nasopharyngitis J00 [facility] [address] [address] 05 Dec, 2017 Schizoaffective disorder, depressive typ e F25.1 [facility] [address] [address] Dec, [place] [address] [address] Nov, Schizoaffective disorder, depressive typ e F25.1 and BMI 45.0-49.9, adult Z68.42 [place] [address] [address] Nov, [place] [address] [address] Nov, [place] [address] [address] Nov, Schizoaffective disorder, depressive typ e F25.1 [place] [address] [address] Nov, Well woman exam Z01.419 ; BMI 45.0-49.9, adult Z68.42 ; Screening breast examination Z12.31 and Dietary counseling and surveillance Z71.3 [place] [address] [address] Nov, Paranoid schizophrenia F20.[address] [address] Nov, Gastroesophageal reflux disease, esophag itis presence not specified K21.[address] [address] Oct, Paranoid schizophrenia F20.0 [facility] [id number] [place] [address] Oct, Chronic pain syndrome G89.4 and Schizoaffective disorder, depressive type F25.[address] [address] Oct, Chronic pain syndrome G89.4 and Schizoaf fective disorder, depressive type F25.1 [place] [address] [address] Oct, Type 2 diabetes mellitus without complic ation, without long-term current use of insulin E11.9 [place] [address] [address] 12 Oct, 2017 Essential hypertension I10 and DM neuro manif type II E11.49 [place] [address] [address] Oct, [place] [address] [address] Oct, Schizoaffective disorder, depressive typ e F25.1 and BMI 45.0-49.9, adult Z68.42 [place] [address] [address] Oct, [place] [address] [address] Oct, Paranoid schizophrenia F20.0 [place] [address] [address] Oct, Type 2 diabetes mellitus with diabetic n europathic arthropathy, 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 ; Essential hypertension I10 ; Hypothyroidism (acquired) E03.9 ; Chronic obstructive pulmonary disease, unspecified COPD type J44.9 and Diabetic polyneuropathy associated with type 2 diabetes mellitus E11.42 [place] [address] [address] Sep, Paranoid schizophrenia F20.0 [place] [address] [address] Sep, Paranoid schizophrenia F20.0 and BMI 45. 0-49.9, adult Z68.42 [place] [address] [address] Sep, Schizoaffective disorder, depressive typ e F25.1 [place] [address] [address] Sep, [place] [address] [address] Sep, Paranoid schizophrenia F20.0 [facility] [address] [place] [id number] [place] [address] Sep, [facility] [address] [address] Sep, Hypothyroidism (acquired) E03.9 [facility] [address] [address] Sep, [facility] [address] [address] August, Schizoaffective disorder, depressive typ e F25.1 [facility] [address] [address] August, [facility] [address] [address] August, [facility] [address] [address] August, [facility] [address] [address] August, Paranoid schizophrenia F20.0 [facility] [address] [address] August, History of lupus Z87.39 and Chronic pain syndrome G89.4 [facility] [address] [id number] [place] [address] August, [facility] [address] [facility] [id number] [address] [address] August, Seasonal allergic rhinitis, unspecified trigger J30.2 and BMI 45.0-49.9, adult Z68.42 [facility] [address] [address] Jul, Schizoaffective disorder, depressive typ e F25.1 [facility] [address] [address] Jul, [facility] [address] [address] 13 Jul, 2017 Hypothyroidism (acquired) E03.9 [facility] [address] [address] Jul, Chronic obstructive pulmonary disease, u nspecified COPD type J44.9 and Type 2 diabetes mellitus without complication, without long-term current use of insulin E11.9 [facility] [address] [address] Jul, Paranoid schizophrenia F20.0 [facility] [address] [address] Jun, Hypothyroidism (acquired) E03.9 and Seas onal allergic rhinitis due to pollen J30.1 [facility] [address] [facility] [id number] [address] [place] [address] Jun, Shortness of breath at rest R06.02 ; COPD exacerbation J44.1 and BMI 45.0-49.9, adult Z68.42 [facility] [address] [address] Jun, [facility] [address] [address] Jun, Paranoid schizophrenia F20.0 ; Depressio n with anxiety F41.8 and BMI 45.0-49.9, adult Z68.42 [facility] [address] [address] Jun, Schizoaffective disorder, depressive typ e F25.1 [facility] [id number] [place] [id number] 13 Jun, 2017 Dental caries K02.9 [facility] [address] [address] Jun, Paranoid schizophrenia F20.0 [facility] [address] [address] May, Migraine without aura and without status migrainosus, not intractable G43.009 ; DM neuro manif type II E11.49 and Type 2 diabetes mellitus without complication, without long-term current use of insulin E11.9 [facility] [address] [address] May, Migraine without aura and without status migrainosus, not intractable G43.009 [facility] [address] [address] May, Depression with anxiety F41.8 [facility] [address] [id number] May, [facility] [address] [address] May, [facility] [address] [address] May, [facility] [address] [address] May, Hypothyroidism (acquired) E03.9 [facility] [address] [address] May, Paranoid schizophrenia F20.0 [facility] [address] [address] May, Type 2 diabetes mellitus without complic [...] N32.81 and Controlled substance agreement signed Z79.899 [facility] [address] [address] May, Controlled substance agreement signed Z7 9.899 [facility] [id number] [place] [address] Apr, [facility] [address] [id number] [place] [id number] Apr, Dental examination Z01.20 [facility] [address] [address] Apr, Paranoid schizophrenia F20.0 [facility] [address] [address] Apr, Hypertension, unspecified type I10 [facility] [address] [address] Apr, Paranoid schizophrenia F20.0 [facility] [address] [address] Apr, [facility] [address] [address] Apr, Tobacco abuse Z72.0 [facility] [address] [address] Apr, [facility] [address] [address] Mar, [facility] [address] [address] Mar, Paranoid schizophrenia F20.0 and BMI 45. 0-49.9, adult Z68.42 [facility] [address] [address] Mar, Schizoaffective disorder, depressive typ e F25.1 [facility] [address] [address] Mar, [facility] [address] [address] Mar, Hypothyroidism, unspecified type E03.9 [facility] [address] [address] Mar, Schizoaffective disorder, depressive typ e F25.1 [facility] [id number] [place] [address] Feb, Gastroenteritis K52.9 and BM I 45.0-49.9, adult Z68.42 [place] [address] [address] Feb, [place] [address] [address] Feb, [place] [address] [address] Feb, [address] [address] Feb, [address] [address] Feb, Paranoid schizophrenia F20.[address] [address] Feb, Gastroesophageal reflux disease without esophagitis K21.9 ; Other seasonal allergic rhinitis J30.2 ; Other allergic rhinitis J30.89 ; Tobacco abuse Z72.0 and BMI 40.0-44.9, adult Z68.[address] [address] Feb, Onychomycosis B35.1 ; Callus of foot L84 and DM neuro manif type II E11.[address] [address] Jan, Chronic allergic rhinitis J30.9 [place] [address] [address] Jan, [address] [address] Jan, Schizoaffective disorder, depressive typ e F25.[address] [address] Jan, [facility] [address] [place] [address] 07 Jan, 2017 Sore throat J02.9 and Season al allergic rhinitis due to other allergic trigger J30.89 [place] [address] [address] Jan, [place] [address] [address] Jan, [facility] [address] [address] Jan, Chronic allergic rhinitis J3 0.9 [place] [address] [address] Dec, Paranoid schizophrenia F20.0 ; Primary i nsomnia F51.01 and Schizoaffective disorder, depressive type F25.1 [place] [address] [address] Dec, Chronic pain syndrome G89.4 ; Cervicalgi a of crokjfjz-dpqlnaw-dijtq region M54.2 ; Menopausal syndrome (hot flashes) N95.1 and Encounter for immunization Z23 [place] [address] [address] 14 Dec, 2016 [place] [address] [address] Dec, [place] [address] [address] 08 Dec, 2016 Paranoid schizophrenia F20.0 [place] [address] [address] Dec, Schizoaffective disorder, depressive typ e F25.1 [place] [address] [address] Nov, Hypothyroidism, unspecified type E03.9 [facility] [id number] [place] [address] Nov, Acute seasonal allergic rhin itis due to other allergen J30.89 [place] [address] [address] Nov, [place] [address] [id number] Nov, Hypothyroidism, unspecified type E03.9 a nd Other elevated white blood cell (WBC) count D72.828 [place] [address] [address] Nov, Schizoaffective disorder, depressive typ e F25.1 [place] [address] [address] Nov, Paranoid schizophrenia F20.0 [place] [address] [address] Nov, Type 2 diabetes mellitus without complic ation, without long-term current use of insulin E11.9 ; Morbid obesity due to excess calories E66.01 and Chronic pain syndrome G89.4 [place] [address] [address] Oct, Paranoid schizophrenia F20.0 [place] [address] [address] Oct, [place] [address] [address] Oct, Schizoaffective disorder, depressive typ e F25.1 [place] [address] [address] Oct, Hypothyroidism, unspecified type E03.9 a nd Other elevated white blood cell (WBC) count D72.828 [place] [address] [address] Oct, Morbid obesity due to excess calories E6 6.01 ; Chronic obstructive pulmonary disease, unspecified COPD type J44.9 ; History of lupus Z87.39 ; Hypothyroidism, unspecified type E03.9 ; Gastroesophageal reflux disease without esophagitis K21.9 ; Primary insomnia F51.01 and Chronic pain syndrome G89.4 [facility] [id number] [place] [address] 30 Sep, 2016 [facility] [address] [address] Sep, [facility] [address] [address] Sep, [facility] [address] [address] Sep, Paranoid schizophrenia F20.0 [facility] [address] [address] Sep, [facility] [address] [address] Sep, Paranoid schizophrenia F20.0 [facility] [address] [address] Sep, [facility] [address] [address] August, Paranoid schizophrenia F20.0 [facility] [address] [address] Jul, [facility] [address] [address] Jul, Type 2 diabetes mellitus without complic ation, without long-term current use of insulin E11.9 ; Morbid obesity due to excess calories E66.01 ; Depression with anxiety F41.8 ; Hypothyroidism, unspecified type E03.9 ; Seasonal allergic rhinitis due to other allergic trigger J30.89 ; Pain, dental K08.89 and Gastroesophageal reflux disease without esophagitis K21.9 [facility] [address] [id number] [place] [id number] Jul, Dental examination Z01.20 [facility] [id number] [place] [address] 07 Jul, 2016 Paranoid schizophrenia F20.0 [facility] [address] [address] Jun, Paranoid schizophrenia F20.0 and Depress ion with anxiety F41.8 [place] [address] [address] 10 Jun, 2016 Paranoid schizophrenia F20.0 and Depress ion with anxiety F41.8 [place] [address] [address] 09 Jun, [address] [address] 08 Jun, 2016 [facility] [address] [address] Jun, Seasonal allergic rhinitis d ue to other allergic trigger J30.89 [facility] [address] [address] May, Sore throat J02.9 ; Other vi ral agents as the cause of diseases classified elsewhere B97.89 and Acute upper respiratory infection, unspecified J06.[address] [address] May, Paranoid schizophrenia F20.0 and Depress ion with anxiety F41.[address] [address] Apr, Other seasonal allergic rhinitis J30.[address] [address] Apr, Paranoid schizophrenia F20.0 and Depress ion with anxiety F41.8 [facility] [address] [address] Apr, Bronchitis J40 and Sore thro at J02.[address] [address] Apr, Type 2 diabetes mellitus without complic ation, without long-term current use of insulin E11.9 [facility] [address] [address] Apr, Bronchitis J40 [place] [address] [address] Apr, [place] [address] [address] Apr, [place] [address] [address] Mar, Type 2 diabetes mellitus without complic [...] R60.9 and Other seasonal allergic rhinitis J30.2 [place] [address] [address] Mar, Paranoid schizophrenia F20.0 and Depress ion with anxiety F41.8 [place] [address] [address] Feb, [place] [address] [address] Feb, [place] [address] [address] Feb, [place] [address] [address] Feb, [place] [address] [address] Feb, Type 2 diabetes mellitus without complic ation, without long-term current use of insulin E11.9 ; ARIAS on CPAP G47.33 and Preoperative evaluation to rule out surgical contraindication Z01.818 [place] [address] [address] Feb, Paranoid schizophrenia F20.0 and Depress ion with anxiety F41.8 [place] [id number] [place] [address] 18 Jan, 2016 [facility] [id number] [place] [address] 18 Jan, 2016 Paranoid schizophrenia F20.0 and Depress ion with anxiety F41.8 [facility] [id number] [place] [address] 17 Jan, 2016 [facility] [id number] [place] [address] 14 Jan, 2016 Muscle strain T14.8 [facility] [address] [facility] [place] [address] 10 Jan, 2016 Paranoid schizophrenia F20.0 [facility] [id number] [place] [address] 07 Jan, 2016 [facility] [address] [address] 05 Jan, 2016 Paranoid schizophrenia F20.0 and Depress ion with anxiety F41.8 [facility] [id number] [place] [address] 05 Jan, 2016 [facility] [address] [address] 03 Jan, 2016 [facility] [id number] [place] [address] 28 Dec, 2015 [facility] [address] [address] 23 Dec, 2015 Paranoid schizophrenia F20.0 [facility] [address] [id number] [place] [address] 16 Dec, 2015 Paranoid schizophrenia F20.0 and Depress ion with anxiety F41.8 [facility] [id number] [place] [address] 31 Nov, 2015 [facility] [id number] [place] [address] 24 Nov, 2015 Paranoid schizophrenia F20.0 [facility] [address] [address] Nov, Paranoid schizophrenia F20.0 and Depress ion with anxiety F41.8 [place] [address] [address] Nov, Type 2 diabetes mellitus without complic ation, without long-term current use of insulin E11.9 ; Paranoid schizophrenia F20.0 ; Chronic obstructive pulmonary disease, unspecified COPD type J44.9 ; Morbid obesity due to excess calories E66.01 and Parkinsonian tremor G20 [place] [address] [address] Nov, [place] [address] [address] Oct, Paranoid schizophrenia F20.0 [place] [address] [address] Oct, Paranoid schizophrenia F20.0 [place] [address] [address] Oct, Paranoid schizophrenia F20.0 and Depress ion with anxiety F41.8 [place] [address] [address] Oct, [place] [address] [address] Oct, Paranoid schizophrenia F20.0 and Depress ion with anxiety F41.8 [place] [address] [address] Oct, Nasal sore J34.89 [place] [address] [address] Oct, Type 2 diabetes mellitus without complic ation, without long-term current use of insulin E11.9 ; Depression with anxiety F41.8 ; Hypothyroidism, unspecified type E03.9 and History of lupus Z87.39 [place] [address] [address] Oct, [place] [address] [address] Oct, 2016 Type 2 diabetes mellitus without complic [...] edema R60.9 and History of lupus Z87.39 [facility] [address] [address] Feb, [facility] [address] [address] Jan, [facility] [address] [address] Jan, [facility] [address] [address] Jan, [facility] [address] [address] Dec, [facility] [address] [address] Nov, [facility] [address] [address] Nov, [facility] [address] [address] Oct, [facility] [address] [address] Oct, [facility] [address] [address] Oct, [facility] [address] [address] Sep, Allergic rhinitis 477.9 [facility] [place] [facility] [address] [id number] [place] [address] 11 Sep, 2014 Rhinitis, allergic 477.9 [facility] [place] [facility] [address] [id number] [place] [address] 10 Sep, 2014 Rhinitis, allergic 477.9 [facility] [place] [facility] [address] [id number] [place] [address] 09 Sep, 2014 [facility] [place] [facility] [address] [id number] [place] [address] August, [facility] [place] [facility] [address] [id number] [place] [address] August, [facility] [place] [facility] [address] [id number] [place] [address] August, [facility] [place] [facility] [address] [id number] [place] [address] Jul, [facility] [place] [facility] [address] [id number] [place] [address] 14 Jul, 2014 [facility] [place] [facility] [address] [id number] [place] [address] Jul, [facility] [place] [facility] [address] [id number] [place] [address] 16 Jun, 2014 [facility] [place] [facility] [address] [id number] [place] [address] 16 Jun, 2014 [facility] [place] [facility] [address] [id number] [place] [address] Jun, [facility] [place] [facility] [address] [id number] [place] [address] Jun, [facility] [place] [facility] [address] [id number] [place] [address] Jun, [facility] [place] [facility] [address] [id number] [place] [address] Jun, [facility] [place] [facility] [address] [id number] [place] [address] Jun, [facility] [place] [facility] [address] [id number] [place] [address] Jun, [facility] [place] [facility] [address] [id number] [place] [address] May, 2014 [facility] [place] [facility] [address] [id number] [place] [address] May, 2014 [facility] [place] [facility] [address] [id number] [place] [address] May, 2014 [facility] [place] [facility] [address] [id number] [place] [address] May, [facility] [place] [facility] [address] [id number] [place] [address] Apr, [facility] [place] [facility] [address] [id number] [place] [address] Mar, [facility] [place] [facility] [address] [id number] [place] [address] Mar, [facility] [place] [facility] [address] [id number] [place] [address] Mar, [facility] [place] [facility] [address] [id number] [place] [address] Mar, [facility] [place] [facility] [address] [id number] [place] [address] Mar, [facility] [place] [facility] [address] [id number] [place] [address] Mar, [facility] [place] [facility] [address] [id number] [place] [address] Mar, [facility] [place] [facility] [address] [id number] [place] [address] Mar, [facility] [place] [facility] [address] [id number] [place] [address] Mar, [facility] [place] [facility] [address] [id number] [place] [address] Feb, [facility] [place] [facility] [address] [id number] [place] [address] Feb, [facility] [place] [facility] [address] [id number] [place] [address] 17 Feb, 2014 [facility] [place] [facility] [address] [id number] [place] [address] 17 Feb, 2014 [facility] [place] [facility] [address] [id number] [place] [address] 14 Feb, 2014 [facility] [place] [facility] [address] [id number] [place] [address] 14 Feb, 2014 [facility] [place] [facility] [address] [facility] [id number] [place] [address] Feb, [facility] [place] [facility] [address] [id number] [place] [address] Feb, [facility] [place] [facility] [address] [id number] [place] [address] 23 Jan, 2014 [facility] [place] [facility] [address] [id number] [place] [address] 23 Jan, 2014 [facility] [place] [facility] [address] [id number] [place] [address] 16 Jan, 2014 [facility] [place] [facility] [address] [id number] [place] [address] 16 Jan, 2014 [facility] [place] [facility] [address] [id number] [place] [address] 15 Jan, 2014 [facility] [place] [facility] [address] [id number] [place] [address] 15 Jan, 2014 [facility] [place] [facility] [address] [id number] [place] [address] 14 Jan, 2014 [facility] [place] [facility] [address] [id number] [place] [address] 14 Jan, 2014 [facility] [place] [facility] [address] [id number] [place] [address] 14 Jan, 2014 [facility] [place] [facility] [address] [id number] [place] [address] 14 Jan, 2014 [facility] [place] [facility] [address] [id number] [place] [address] 18 Dec, 2013 [facility] [place] [facility] [address] [id number] [place] [address] Dec, [facility] [place] [facility] [address] [facility] [id number] [facility] [place] [address] Dec, [facility] [place] [facility] [address] [id number] [facility] [place] [address] Dec, [facility] [place] [facility] [address] [facility] [id number] [facility] [place] [address] Nov, [facility] [place] [facility] [address] [facility] [id number] [place] [address] Nov, [facility] [place] [facility] [address] [id number] [place] [address] Nov, [facility] [place] [facility] [address] [id number] [place] [address] Nov, [facility] [place] [facility] [address] [id number] [place] [address] Nov, [facility] [place] [facility] [address] [facility] [id number] [facility] [place] [address] Oct, [facility] [place] [facility] [address] [id number] [place] [address] Oct, [facility] [place] [facility] [address] [id number] [place] [address] Oct, [facility] [place] [facility] [address] [id number] [place] [address] Oct, [facility] [place] [facility] [address] [facility] [id number] [place] [address] Sep, [facility] [place] [facility] [address] [id number] [place] [address] Sep, [facility] [place] [facility] [address] [id number] [place] [address] Sep, [facility] [place] [facility] [address] [id number] [place] [address] Sep, [facility] [place] [facility] [address] [id number] [place] [address] Sep, [facility] [place] [facility] [address] [id number] [place] [address] Sep, [facility] [place] [facility] [address] [id number] [place] [address] Sep, [facility] [place] [facility] [address] [id number] [place] [address] Sep, [facility] [place] [facility] [address] [id number] [place] [address] August, [facility] [place] [facility] [address] [id number] [place] [address] August, [facility] [place] [facility] [address] [id number] [place] [address] August, [facility] [place] [facility] [address] [id number] [place] [address] August, [facility] [place] [facility] [address] [id number] [place] [address] August, [facility] [place] [facility] [address] [id number] [place] [address] August, [facility] [address] [id number] [place] [address] August, [facility] [address] [id number] [place] [address] Jul, [facility] [address] [id number] [place] [address] Jul, [facility] [address] [id number] [place] [address] Jul, [facility] [address] [id number] [place] [address] Jul, [facility] [address] [id number] [place] [address] Jul, [facility] [address] [id number] [place] [address] Jul, [facility] [address] [facility] [id number] [facility] [place] [address] Jul, [facility] [address] [facility] [id number] [facility] [place] [address] Jul, [facility] [address] [facility] [id number] [facility] [place] [address] Jul, [facility] [address] [id number] [facility] [place] [address] Jul, [facility] [address] [facility] [id number] [facility] [place] [address] Jul, [facility] [address] [id number] [place] [address] Jul, [facility] [address] [id number] [place] [address] Jun, [facility] [address] [id number] [place] [address] Jun, [facility] [address] [id number] [place] [address] Jun, [facility] [address] [id number] [place] [address] Jun, [facility] [address] [id number] [place] [address] Jun, [facility] [address] [id number] [place] [address] May, [facility] [address] [id number] [place] [address] May, [facility] [address] [id number] [place] [address] May, [facility] [address] [id number] [place] [address] May, [facility] [address] [id number] [place] [address] May, [facility] [address] [id number] [place] [address] May, 2013 [facility] [address] [id number] [place] [address] May, 2013 [facility] [address] [id number] [place] [address] May, [facility] [address] [id number] [place] [address] Mar, [facility] [address] [id number] [place] [address] Mar, [facility] [address] [id number] [place] [address] Mar, [facility] [address] [id number] [place] [address] Mar, [facility] [address] [id number] [place] [address] Mar, [facility] [address] [id number] [place] [address] Mar, [facility] [address] [id number] [place] [address] Feb, [facility] [address] [id number] [place] [address] Feb, [facility] [address] [id number] [place] [address] Jan, [facility] [address] [id number] [place] [address] Jan, [facility] [address] [id number] [place] [address] Jan, [facility] [id number] [place] [address] Jan, [facility] [address] [id number] [place] [address] Jan, [facility] [id number] [place] [address] Jan, [facility] [address] [id number] [place] [address] Jan, [facility] [address] [id number] [place] [address] Jan, [facility] [address] [id number] [place] [address] Jan, [facility] [address] [id number] [place] [address] Jan, [facility] [address] [id number] [place] [address] Dec, [facility] [address] [id number] [place] [address] Nov, [facility] [address] [id number] [place] [address] Nov, [facility] [address] [id number] [place] [address] Nov, [facility] [address] [id number] [place] [address] Oct, [facility] [address] [id number] [place] [address] Oct, [facility] [address] [id number] [place] [address] August, [facility] [address] [id number] [place] [address] Apr, [facility] [address] [id number] [place] [address] Apr, [facility] [address] [id number] [place] [address] Feb, [facility] [address] [id number] [place] [address] Feb, [facility] [address] [id number] [place] [address] Dec, [facility] [address] [id number] [place] [address] Dec, [facility] [address] [id number] [place] [address] Oct, [facility] [address] [id number] [place] [address] Oct, [facility] [address] [id number] [place] [address] Oct, [facility] [address] [id number] [place] [address] Jul, IMMUNIZATIONS No Known Immunizations SOCIAL HISTORY [...] hospitalizations for psychosis/mental illness, last one in [facility] 4 years ago Hospitalization History broken ankle 08/2018
--- OUTSIDE RECORDS SUMMARY | 2019-07-07 04:05 | XMS REPORT ---
Author Author Alayna ROJAS Organization [facility] Address [address] [place] [address] Care Team Providers Care Rehabilitation Therapist Name Role Phone RADHA ROJAS Unavailable PROBLEMS Type Condition ICD9-CM Code [id number] Code Onset Dates Condition S tatus SNOMED Code Problem Type 2 diabetes mellitus wit hout complication, without long-term current use of insulin E11.9 Active 170230365 Problem Gastroesophageal reflux disease without esophagitis K21.9 Active 160831667 Problem History of lupus Z87.39 Active 312 182145 Problem Schizoaffective disorder, depressive type F25.1 Active 10108112 Problem Seasonal allergic rhinitis due to other allergic trigger J30.89 Active 877713340 Problem DM neuro manif type II E11.49 Active 16166379 Problem Primary insomnia F51.01 Active 397 2004 Problem Diabetic polyneuropathy associated with type 2 d iabetes mellitus E11.42 Active 881573276 Problem Chronic pain syndrome G89.4 Active 297389711 Problem 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, 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 Active 266763905 Problem Morbid obesity due to excess calories E66.01 Active 279627249 Problem OAB (overactive bladder) N32.81 Activ e 142661996 Problem Paranoid schizophrenia F20.0 Active 84336561 Problem Gastroesophageal reflux disease, esophagitis pre sence not specified K21.9 Active 108467943 Problem Tobacco abuse Z72.0 Active 651116 000 Problem Dyslipidemia E78.5 Active 7114439 07 Problem Migraine without aura and without status migrain osus, not intractable G43.009 Active 330465089 Problem Hypothyroidism (acquired) E03.9 Acti ve 663382939 Problem Essential hypertension I10 Active 22390292 Problem Seasonal allergic rhinitis due to pollen J30.1 Active 98380224 Problem Chronic obstructive pulmonary disease, unspecified COPD ty pe J44.9 Active 29741767 Problem COPD exacerbation J44.1 Active 19 9686093 Problem Depression with anxiety F41.8 Active 096377821 Problem Cigarette nicotine dependence without complication F17.210 Active 74135643 Problem Allergic rhinitis, unspecified seasonality, unspecifie d trigger J30.9 Active 97792692 Problem Constipation by delayed colonic transit K59.01 Active 64274886 Problem Constipation, unspecified constipation type K59.00 Active 36613570 Problem Other allergic rhinitis J30.89 Active 467252208 Problem Constipation, unspecified constipation type K59.00 Active 04137441 Problem Menopausal syndrome (hot flashes) N95.1 Active 180012705 Problem Other seasonal allergic rhinitis J30.2 Active 082581127 Problem BMI 31.0-31.9,adult Z68.31 Active 845342716 Problem Vaginal dryness, menopausal N95.1 Ac tive 97810637 Problem Diverticulitis K57.92 Active 94983 6006 Problem BMI 40.0-44.9, adult Z68.41 Active 368627764 ALLERGIES No Information ENCOUNTERS Encounter Location Date Diagnosis [facility] [address] [address] Jun, [facility] [address] [address] 11 May, 2019 [facility] [address] [address] Apr, [facility] [address] [address] Apr, Paranoid schizophrenia F20.0 [facility] [address] [address] Apr, [facility] [address] [address] Apr, [facility] [address] [id number] [address] [place] [address] Apr, Sore throat J02.9 and Non-re current acute suppurative otitis media of both ears without spontaneous rupture of tympanic membranes H66.003 [facility] [address] [address] Apr, [facility] [address] [address] Apr, [facility] [address] [address] Apr, Schizoaffective disorder, depressive typ e F25.1 [facility] [address] [address] Mar, Schizoaffective disorder, depressive typ e F25.1 [facility] [address] [address] Mar, [facility] [address] [id number] [address] [place] [address] Mar, Acute nasopharyngitis J00 [facility] [address] [address] Mar, [facility] [address] [address] Mar, [facility] [address] [id number] Mar, Caries K02.9 [facility] [address] [id number] Feb, Dental examination Z01.20 and Caries K02 .9 [facility] [address] [address] Feb, Constipation, unspecified constipation t ype K59.00 ; Acute hemorrhoid K64.9 ; Tobacco abuse Z72.0 ; BMI 40.0-44.9, adult Z68.41 and Dyslipidemia E78.5 [facility] [address] [address] Feb, [facility] [address] [address] Feb, [facility] [address] [address] Feb, Constipation, unspecified constipation t ype K59.00 ; Left lower quadrant abdominal pain R10.32 ; Hypothyroidism (acquired) E03.9 ; Tobacco abuse Z72.0 and BMI 40.0-44.9, adult Z68.41 [place] [address] [address] Feb, [place] [address] [address] Feb, Chronic obstructive pulmonary disease, u nspecified COPD type J44.9 [place] [address] [address] Jan, [place] [address] [place] [address] Jan, Paranoid schizophrenia F20.0 [place] [address] [address] Jan, [place] [address] [address] Jan, [place] [address] [address] Jan, Diverticulitis K57.92 and Diarrhea, unsp ecified type R19.7 [place] [address] [address] Jan, Paranoid schizophrenia F20.0 and Tobacco abuse Z72.0 [place] [address] [address] Jan, Paranoid schizophrenia F20.0 [place] [address] [address] Jan, Tobacco use Z72.0 [place] [address] [address] Jan, Hypothyroidism (acquired) E03.9 and Type 2 diabetes mellitus without complication, without long-term current use of insulin E11.9 [place] [address] [address] Jan, Paranoid schizophrenia F20.0 [place] [address] [address] Jan, [facility] [address] [address] Jan, Chronic obstructive pulmonary disease, u nspecified COPD type J44.9 [facility] [address] [address] Dec, [place] [address] [address] Dec, Schizoaffective disorder, depressive typ e F25.1 [place] [address] [address] Dec, [place] [address] [address] Dec, [place] [address] [address] Dec, Type 2 diabetes mellitus with diabetic [...] abuse Z72.0 and Encounter for immunization Z23 [place] [address] [address] Dec, Encounter for immunization Z23 [place] [address] [address] Dec, [place] [address] [address] Dec, [place] [address] [address] Dec, [place] [address] [address] Dec, [facility] [address] [address] Dec, [facility] [address] [address] Dec, [facility] [address] [address] Nov, Paranoid schizophrenia F20.0 [facility] [address] [address] Nov, [facility] [address] [address] Nov, [facility] [address] [address] Nov, [facility] [address] [address] Nov, Encounter for comprehensive diabetic monique t examination, type 2 diabetes mellitus E11.9 and Morbid obesity E66.01 [facility] [address] [address] Nov, [facility] [address] [address] Nov, [facility] [address] [address] Nov, [facility] [address] [address] Nov, Schizoaffective disorder, depressive typ e F25.1 [facility] [address] [address] Nov, Constipation by delayed colonic transit K59.01 [facility] [address] [address] Oct, [facility] [address] [address] Oct, [facility] [address] [address] Oct, [facility] [address] [address] Oct, Chronic obstructive pulmonary disease, u nspecified COPD type J44.9 [facility] [address] [address] Oct, [facility] [address] [address] Sep, Paranoid schizophrenia F20.0 [facility] [address] [address] Sep, [facility] [address] [address] Sep, [place] [address] [address] Sep, Encounter for immunization Z23 [place] [address] [address] Sep, [place] [address] [address] Sep, Closed fracture of right ankle, sequela S82.891S ; Morbid obesity E66.01 and Heat rash L74.0 [place] [address] [address] Sep, Schizoaffective disorder, depressive typ e F25.1 [facility] [address] [address] Sep, [facility] [address] [address] Sep, [facility] [address] [address] Sep, [facility] [address] [address] Sep, [facility] [address] [address] Sep, [facility] [id number] [place] [address] Sep, [facility] [id number] [place] [address] Sep, [facility] [id number] [place] [address] Sep, [facility] [id number] [place] [address] Sep, [facility] [address] [address] August, Paranoid schizophrenia F20.0 [facility] [address] [place] [address] [id number] [place] [address] August, [facility] [address] [address] August, [facility] [id number] [place] [address] August, [facility] [id number] [place] [address] August, Type 2 diabetes mellitus without complic ation, without long-term current use of insulin E11.9 ; Closed fracture of right ankle, initial encounter S82.891A ; Constipation by delayed colonic transit K59.01 ; Osteoporosis with pathological fracture, initial encounter M80.00XA ; Encounter for immunization Z23 and Morbid obesity E66.01 [facility] [id number] [place] [address] August, [facility] [id number] [place] [address] August, [facility] [id number] [place] [address] August, Acquired deformity of musculoskeletal sy stem, unspecified M95.9 [facility] [address] [id number] [place] [address] August, Paranoid schizophrenia F20.0 [facility] [address] [place] [id number] [address] August, [place] [address] [address] Jul, [place] [address] [address] Jul, Diabetic polyneuropathy associated with type 2 diabetes mellitus E11.42 ; Paranoid schizophrenia F20.0 ; Preoperative clearance Z01.818 and Morbid obesity E66.01 [place] [address] [address] Jul, Paranoid schizophrenia F20.0 [place] [address] [address] Jul, [place] [address] [address] Jul, [address] [address] Jul, Cigarette nicotine dependence without co mplication F17.[address] [address] Jul, Type 2 diabetes mellitus without complic ation, without long-term current use of insulin E11.9 and Hypothyroidism (acquired) E03.[address] [address] Jul, Encounter for Medicare annual wellness e xam Z00.00 ; Morbid obesity due to excess calories E66.01 ; Diabetic polyneuropathy associated with type 2 diabetes mellitus E11.42 ; Chronic obstructive pulmonary disease, unspecified COPD type J44.9 ; Schizoaffective disorder, depressive type F25.1 ; Hypothyroidism (acquired) E03.9 and Morbid obesity E66.01 [place] [address] [address] Jun, Gastroesophageal reflux disease without esophagitis K21.9 [place] [address] [address] Jun, Paranoid schizophrenia F20.0 [place] [address] [place] [id number] 27 Jun, 2018 Schizoaffective disorder, depressive typ e F25.1 [place] [address] [address] Jun, [place] [address] [address] Jun, Schizoaffective disorder, depressive typ e F25.1 [place] [address] [place] [id number] Jun, Cigarette nicotine dependence without co mplication F17.210 [place] [address] [place] [id number] Jun, Type 2 diabetes mellitus without complic ation, without long-term current use of insulin E11.9 [place] [address] [address] Jun, [place] [address] [address] Jun, [place] [address] [address] Jun, [place] [address] [address] Jun, [place] [address] [address] Jun, [place] [address] [place] [id number] Jun, Paranoid schizophrenia F20.0 ; Type 2 di abetes mellitus without complication, without long-term current use of insulin E11.9 ; Hypothyroidism (acquired) E03.9 and Morbid obesity E66.01 [place] [address] [address] 28 May, 2018 Paranoid schizophrenia F20.0 [place] [address] [address] May, Hypothyroidism (acquired) E03.9 and Dysl ipidemia E78.5 [place] [address] [address] 19 May, 2018 Cigarette nicotine dependence without co mplication F17.210 [place] [address] [address] 18 May, 2018 [place] [address] [address] 14 May, 2018 Type 2 diabetes mellitus without complic ation, without long-term current use of insulin E11.9 ; Essential hypertension I10 ; Hypothyroidism (acquired) E03.9 and Dyslipidemia E78.5 [place] [address] [address] 13 May, 2018 [place] [address] [address] 08 May, 2018 Schizoaffective disorder, depressive typ e F25.1 [place] [address] [address] 08 May, 2018 Paranoid schizophrenia F20.0 [place] [address] [address] 07 May, 2018 [facility] [address] [place] [address] 07 May, 19 [place] [address] [address] May, [place] [address] [address] May, Type 2 diabetes mellitus without complic ation, without long-term current use of insulin E11.9 ; Essential hypertension I10 ; Hypothyroidism (acquired) E03.9 and Dyslipidemia E78.5 [place] [address] [address] 04 May, 2018 [place] [address] [address] May, Acute nasopharyngitis J00 [facility] [address] [id number] [address] [place] [address] 04 May, 2018 Allergic rhinitis, unspecifi ed seasonality, unspecified trigger J30.9 [facility] [address] [address] 04 May, 2018 [facility] [address] [address] Apr, Schizoaffective disorder, depressive typ e F25.1 [place] [address] [address] Apr, [place] [address] [address] Apr, Cigarette nicotine dependence without co mplication F17.210 [place] [address] [address] 17 Apr, 2018 [place] [address] [address] Apr, Cigarette nicotine dependence without co mplication F17.210 [place] [address] [address] Apr, [place] [address] [address] Apr, Migraine without aura and without status migrainosus, not intractable G43.009 [place] [address] [address] Apr, Migraine without aura and without status migrainosus, not intractable G43.009 [place] [address] [address] Mar, Schizoaffective disorder, depressive typ e F25.1 ; BMI 45.0-49.9, adult Z68.42 and BMI 40.0-44.9, adult Z68.41 [place] [address] [address] Mar, Primary insomnia F51.01 [place] [address] [address] Mar, [place] [address] [address] Feb, Primary insomnia F51.01 [place] [address] [address] Feb, [place] [address] [address] Jan, Schizoaffective disorder, depressive typ e F25.1 and BMI 45.0-49.9, adult Z68.42 [place] [address] [address] Jan, [place] [address] [address] Jan, Type 2 diabetes mellitus with diabetic n europathic arthropathy, 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 ; Menopausal syndrome (hot flashes) N95.1 ; BMI 40.0-44.9, adult Z68.41 and Morbid obesity E66.01 [place] [address] [address] Jan, Paranoid schizophrenia F20.0 [place] [address] [address] Jan, [place] [address] [address] Jan, Schizoaffective disorder, depressive typ e F25.1 [place] [address] [address] Jan, [place] [address] [address] Jan, Chronic obstructive pulmonary disease, u nspecified COPD type J44.9 ; BMI 45.0-49.9, adult Z68.42 ; Type 2 diabetes mellitus without complication, without long-term current use of insulin E11.9 ; Hypothyroidism (acquired) E03.9 ; Encounter for immunization Z23 ; Gastroesophageal reflux disease without esophagitis K21.9 ; Primary insomnia F51.01 and Acute nasopharyngitis J00 [place] [address] [address] 27 Dec, 2017 [facility] [address] [address] 21 Dec, 2017 Schizoaffective disorder, depressive typ e F25.1 and BMI 45.0-49.9, adult Z68.42 [facility] [address] [address] Dec, [place] [address] [address] 18 Dec, 2017 [facility] [address] [address] 18 Dec, 2017 Acute non-recurrent frontal sinusitis J0 1.10 [place] [address] [address] 18 Dec, 2017 Acute non-recurrent frontal sinusitis J0 1.10 ; Weakness of left leg R29.898 ; At high risk for falls Z91.81 and BMI 45.0-49.9, adult Z68.42 [place] [address] [address] 17 Dec, 2017 [place] [address] [address] 17 Dec, 2017 [facility] [address] [address] 10 Dec, 2017 Schizoaffective disorder, depressive typ e F25.1 [facility] [address] [id number] [address] [place] [address] 10 Dec, 2017 Acute nasopharyngitis J00 [facility] [address] [address] 05 Dec, 2017 Schizoaffective disorder, depressive typ e F25.1 [facility] [address] [address] Dec, [place] [address] [address] Nov, Schizoaffective disorder, depressive typ e F25.1 and BMI 45.0-49.9, adult Z68.42 [place] [address] [address] Nov, [place] [address] [address] Nov, [place] [address] [address] Nov, Schizoaffective disorder, depressive typ e F25.1 [place] [address] [address] Nov, Well woman exam Z01.419 ; BMI 45.0-49.9, adult Z68.42 ; Screening breast examination Z12.31 and Dietary counseling and surveillance Z71.3 [place] [address] [address] Nov, Paranoid schizophrenia F20.[address] [address] Nov, Gastroesophageal reflux disease, esophag itis presence not specified K21.[address] [address] Oct, Paranoid schizophrenia F20.0 [facility] [id number] [place] [address] Oct, Chronic pain syndrome G89.4 and Schizoaffective disorder, depressive type F25.[address] [address] Oct, Chronic pain syndrome G89.4 and Schizoaf fective disorder, depressive type F25.1 [place] [address] [address] Oct, Type 2 diabetes mellitus without complic ation, without long-term current use of insulin E11.9 [place] [address] [address] 12 Oct, 2017 Essential hypertension I10 and DM neuro manif type II E11.49 [place] [address] [address] Oct, [place] [address] [address] Oct, Schizoaffective disorder, depressive typ e F25.1 and BMI 45.0-49.9, adult Z68.42 [place] [address] [address] Oct, [place] [address] [address] Oct, Paranoid schizophrenia F20.0 [place] [address] [address] Oct, Type 2 diabetes mellitus with diabetic n europathic arthropathy, 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 ; Essential hypertension I10 ; Hypothyroidism (acquired) E03.9 ; Chronic obstructive pulmonary disease, unspecified COPD type J44.9 and Diabetic polyneuropathy associated with type 2 diabetes mellitus E11.42 [place] [address] [address] Sep, Paranoid schizophrenia F20.0 [place] [address] [address] Sep, Paranoid schizophrenia F20.0 and BMI 45. 0-49.9, adult Z68.42 [place] [address] [address] Sep, Schizoaffective disorder, depressive typ e F25.1 [place] [address] [address] Sep, [place] [address] [address] Sep, Paranoid schizophrenia F20.0 [facility] [id number] [place] [address] Sep, [facility] [address] [address] Sep, Hypothyroidism (acquired) E03.9 [facility] [address] [address] Sep, [facility] [address] [address] August, Schizoaffective disorder, depressive typ e F25.1 [facility] [address] [address] August, [facility] [address] [address] August, [facility] [address] [address] August, [facility] [address] [address] August, Paranoid schizophrenia F20.0 [facility] [address] [address] August, History of lupus Z87.39 and Chronic pain syndrome G89.4 [facility] [address] [id number] [place] [address] August, [facility] [address] [id number] [place] [address] August, Seasonal allergic rhinitis, unspecified trigger J30.2 and BMI 45.0-49.9, adult Z68.42 [facility] [address] [address] Jul, Schizoaffective disorder, depressive typ e F25.1 [facility] [address] [address] Jul, [facility] [address] [address] 13 Jul, 2017 Hypothyroidism (acquired) E03.9 [facility] [address] [address] Jul, Chronic obstructive pulmonary disease, u nspecified COPD type J44.9 and Type 2 diabetes mellitus without complication, without long-term current use of insulin E11.9 [facility] [address] [address] Jul, Paranoid schizophrenia F20.0 [facility] [address] [address] Jun, Hypothyroidism (acquired) E03.9 and Seas onal allergic rhinitis due to pollen J30.1 [facility] [address] [id number] [address] [place] [address] Jun, Shortness of breath at rest R06.02 ; COPD exacerbation J44.1 and BMI 45.0-49.9, adult Z68.42 [facility] [address] [address] Jun, [facility] [address] [address] Jun, Paranoid schizophrenia F20.0 ; Depressio n with anxiety F41.8 and BMI 45.0-49.9, adult Z68.42 [facility] [address] [address] Jun, Schizoaffective disorder, depressive typ e F25.1 [facility] [id number] [place] [id number] 13 Jun, 2017 Dental caries K02.9 [facility] [address] [address] Jun, Paranoid schizophrenia F20.0 [facility] [address] [address] May, Migraine without aura and without status migrainosus, not intractable G43.009 ; DM neuro manif type II E11.49 and Type 2 diabetes mellitus without complication, without long-term current use of insulin E11.9 [facility] [address] [address] May, Migraine without aura and without status migrainosus, not intractable G43.009 [facility] [address] [address] May, Depression with anxiety F41.8 [facility] [address] [place] [id number] May, [facility] [address] [address] May, [facility] [address] [address] May, [facility] [address] [address] May, Hypothyroidism (acquired) E03.9 [facility] [address] [address] May, Paranoid schizophrenia F20.0 [facility] [address] [address] May, Type 2 diabetes mellitus without complic [...] and Controlled substance agreement signed Z79.899 [facility] [address] [address] May, Controlled substance agreement signed Z7 9.899 [facility] [id number] [place] [address] Apr, [facility] [address] [id number] [place] [id number] Apr, Dental examination Z01.20 [facility] [address] [address] Apr, Paranoid schizophrenia F20.0 [facility] [address] [address] Apr, Hypertension, unspecified type I10 [facility] [address] [address] Apr, Paranoid schizophrenia F20.0 [facility] [address] [address] Apr, [facility] [address] [address] Apr, Tobacco abuse Z72.0 [facility] [address] [address] Apr, [facility] [address] [address] Mar, [facility] [address] [address] Mar, Paranoid schizophrenia F20.0 and BMI 45. 0-49.9, adult Z68.42 [facility] [address] [address] Mar, Schizoaffective disorder, depressive typ e F25.1 [facility] [address] [address] Mar, [facility] [address] [address] Mar, Hypothyroidism, unspecified type E03.9 [facility] [address] [address] Mar, Schizoaffective disorder, depressive typ e F25.1 [facility] [id number] [place] [address] Feb, Gastroenteritis K52.9 and BM I 45.0-49.9, adult Z68.42 [place] [address] [address] Feb, [place] [address] [address] Feb, [place] [address] [address] Feb, [address] [address] Feb, [address] [address] Feb, Paranoid schizophrenia F20.[address] [address] Feb, Gastroesophageal reflux disease without esophagitis K21.9 ; Other seasonal allergic rhinitis J30.2 ; Other allergic rhinitis J30.89 ; Tobacco abuse Z72.0 and BMI 40.0-44.9, adult Z68.[address] [address] Feb, Onychomycosis B35.1 ; Callus of foot L84 and DM neuro manif type II E11.[address] [address] Jan, Chronic allergic rhinitis J30.9 [place] [address] [address] Jan, [address] [address] Jan, Schizoaffective disorder, depressive typ e F25.[address] [address] Jan, [facility] [address] [place] [address] 07 Jan, 2017 Sore throat J02.9 and Season al allergic rhinitis due to other allergic trigger J30.89 [place] [address] [address] Jan, [place] [address] [address] Jan, [facility] [address] [address] Jan, Chronic allergic rhinitis J3 0.9 [place] [address] [address] Dec, Paranoid schizophrenia F20.0 ; Primary i nsomnia F51.01 and Schizoaffective disorder, depressive type F25.1 [place] [address] [address] Dec, Chronic pain syndrome G89.4 ; Cervicalgi a of crhxayqo-bfjcrvk-foajp region M54.2 ; Menopausal syndrome (hot flashes) N95.1 and Encounter for immunization Z23 [place] [address] [address] 14 Dec, 2016 [place] [address] [address] Dec, [place] [address] [address] 08 Dec, 2016 Paranoid schizophrenia F20.0 [place] [address] [address] Dec, Schizoaffective disorder, depressive typ e F25.1 [place] [address] [address] Nov, Hypothyroidism, unspecified type E03.9 [facility] [address] [place] [id number] [place] [address] Nov, Acute seasonal allergic rhin itis due to other allergen J30.89 [place] [address] [address] Nov, [place] [address] [place] [id number] Nov, Hypothyroidism, unspecified type E03.9 a nd Other elevated white blood cell (WBC) count D72.828 [place] [address] [address] Nov, Schizoaffective disorder, depressive typ e F25.1 [place] [address] [address] Nov, Paranoid schizophrenia F20.0 [place] [address] [address] Nov, Type 2 diabetes mellitus without complic ation, without long-term current use of insulin E11.9 ; Morbid obesity due to excess calories E66.01 and Chronic pain syndrome G89.4 [place] [address] [address] Oct, Paranoid schizophrenia F20.0 [place] [address] [address] Oct, [place] [address] [address] Oct, Schizoaffective disorder, depressive typ e F25.1 [place] [address] [address] Oct, Hypothyroidism, unspecified type E03.9 a nd Other elevated white blood cell (WBC) count D72.828 [place] [address] [address] Oct, Morbid obesity due to excess calories E6 6.01 ; Chronic obstructive pulmonary disease, unspecified COPD type J44.9 ; History of lupus Z87.39 ; Hypothyroidism, unspecified type E03.9 ; Gastroesophageal reflux disease without esophagitis K21.9 ; Primary insomnia F51.01 and Chronic pain syndrome G89.4 [facility] [id number] [place] [address] 30 Sep, 2016 [facility] [address] [address] Sep, [facility] [address] [address] Sep, [facility] [address] [address] Sep, Paranoid schizophrenia F20.0 [facility] [address] [address] Sep, [facility] [address] [address] Sep, Paranoid schizophrenia F20.0 [facility] [address] [address] Sep, [facility] [address] [address] August, Paranoid schizophrenia F20.0 [facility] [address] [address] Jul, [facility] [address] [address] Jul, Type 2 diabetes mellitus without complic ation, without long-term current use of insulin E11.9 ; Morbid obesity due to excess calories E66.01 ; Depression with anxiety F41.8 ; Hypothyroidism, unspecified type E03.9 ; Seasonal allergic rhinitis due to other allergic trigger J30.89 ; Pain, dental K08.89 and Gastroesophageal reflux disease without esophagitis K21.9 [facility] [address] [id number] [place] [id number] Jul, Dental examination Z01.20 [facility] [id number] [place] [address] 07 Jul, 2016 Paranoid schizophrenia F20.0 [facility] [address] [address] Jun, Paranoid schizophrenia F20.0 and Depress ion with anxiety F41.8 [place] [address] [address] 10 Jun, 2016 Paranoid schizophrenia F20.0 and Depress ion with anxiety F41.8 [place] [address] [address] 09 Jun, [address] [address] 08 Jun, 2016 [facility] [place] [address] [address] Jun, Seasonal allergic rhinitis d ue to other allergic trigger J30.89 [facility] [place] [address] [address] May, Sore throat J02.9 ; Other vi ral agents as the cause of diseases classified elsewhere B97.89 and Acute upper respiratory infection, unspecified J06.[address] [address] May, Paranoid schizophrenia F20.0 and Depress ion with anxiety F41.[address] [address] Apr, Other seasonal allergic rhinitis J30.[address] [address] Apr, Paranoid schizophrenia F20.0 and Depress ion with anxiety F41.8 [facility] [place] [address] [address] Apr, Bronchitis J40 and Sore thro at J02.[address] [address] Apr, Type 2 diabetes mellitus without complic ation, without long-term current use of insulin E11.9 [facility] [place] [address] [address] Apr, Bronchitis J40 [place] [address] [address] Apr, [place] [address] [address] Apr, [place] [address] [address] Mar, Type 2 diabetes mellitus without complic [...] R60.9 and Other seasonal allergic rhinitis J30.2 [place] [address] [address] Mar, Paranoid schizophrenia F20.0 and Depress ion with anxiety F41.8 [place] [address] [address] Feb, [place] [address] [address] Feb, [place] [address] [address] Feb, [place] [address] [address] Feb, [place] [address] [address] Feb, Type 2 diabetes mellitus without complic ation, without long-term current use of insulin E11.9 ; ARIAS on CPAP G47.33 and Preoperative evaluation to rule out surgical contraindication Z01.818 [place] [address] [address] Feb, Paranoid schizophrenia F20.0 and Depress ion with anxiety F41.8 [place] [id number] [place] [address] 18 Jan, 2016 [facility] [id number] [place] [address] 18 Jan, 2016 Paranoid schizophrenia F20.0 and Depress ion with anxiety F41.8 [facility] [id number] [place] [address] 17 Jan, 2016 [facility] [id number] [place] [address] 14 Jan, 2016 Muscle strain T14.8 [facility] [address] [id number] [place] [address] 10 Jan, 2016 Paranoid schizophrenia F20.0 [facility] [address] [id number] [place] [address] 07 Jan, 2016 [facility] [address] [address] 05 Jan, 2016 Paranoid schizophrenia F20.0 and Depress ion with anxiety F41.8 [facility] [address] [id number] [place] [address] 05 Jan, 2016 [facility] [address] [address] 03 Jan, 2016 [facility] [address] [place] [id number] [place] [address] 28 Dec, 2015 [facility] [address] [address] 23 Dec, 2015 Paranoid schizophrenia F20.0 [facility] [address] [id number] [place] [address] 16 Dec, 2015 Paranoid schizophrenia F20.0 and Depress ion with anxiety F41.8 [facility] [id number] [place] [address] 31 Nov, 2015 [facility] [id number] [place] [address] 24 Nov, 2015 Paranoid schizophrenia F20.0 [facility] [address] [address] Nov, Paranoid schizophrenia F20.0 and Depress ion with anxiety F41.8 [place] [address] [address] Nov, Type 2 diabetes mellitus without complic ation, without long-term current use of insulin E11.9 ; Paranoid schizophrenia F20.0 ; Chronic obstructive pulmonary disease, unspecified COPD type J44.9 ; Morbid obesity due to excess calories E66.01 and Parkinsonian tremor G20 [place] [address] [address] Nov, [place] [address] [address] Oct, Paranoid schizophrenia F20.0 [place] [address] [address] Oct, Paranoid schizophrenia F20.0 [place] [address] [address] Oct, Paranoid schizophrenia F20.0 and Depress ion with anxiety F41.8 [place] [address] [address] Oct, [place] [address] [address] Oct, Paranoid schizophrenia F20.0 and Depress ion with anxiety F41.8 [place] [address] [address] Oct, Nasal sore J34.89 [place] [address] [address] Oct, Type 2 diabetes mellitus without complic ation, without long-term current use of insulin E11.9 ; Depression with anxiety F41.8 ; Hypothyroidism, unspecified type E03.9 and History of lupus Z87.39 [place] [address] [address] Oct, [place] [address] [address] Oct, 2016 Type 2 diabetes mellitus without [...] lupus Z87.39 [facility] [address] [address] Feb, [facility] [address] [address] Jan, [facility] [address] [address] Jan, [facility] [address] [address] Jan, [facility] [address] [address] Dec, [facility] [address] [address] Nov, [facility] [address] [address] Nov, [facility] [address] [address] Oct, [facility] [address] [address] Oct, [facility] [address] [address] Oct, [facility] [address] [address] Sep, Allergic rhinitis 477.9 [facility] [place] [facility] [address] [id number] [place] [address] 11 Sep, 2014 Rhinitis, allergic 477.9 [facility] [place] [facility] [address] [id number] [place] [address] 10 Sep, 2014 Rhinitis, allergic 477.9 [facility] [place] [facility] [address] [id number] [place] [address] 09 Sep, 2014 [facility] [place] [facility] [address] [id number] [place] [address] August, [facility] [place] [facility] [address] [id number] [place] [address] August, [facility] [place] [facility] [address] [id number] [place] [address] August, [facility] [place] [facility] [address] [id number] [place] [address] Jul, [facility] [place] [facility] [address] [id number] [place] [address] 14 Jul, 2014 [facility] [place] [facility] [address] [id number] [place] [address] Jul, [facility] [place] [facility] [address] [id number] [place] [address] 16 Jun, 2014 [facility] [place] [facility] [address] [id number] [place] [address] 16 Jun, 2014 [facility] [place] [facility] [address] [id number] [place] [address] Jun, [facility] [place] [facility] [address] [id number] [place] [address] Jun, [facility] [place] [facility] [address] [id number] [place] [address] Jun, [facility] [place] [facility] [address] [id number] [place] [address] Jun, [facility] [place] [facility] [address] [id number] [place] [address] Jun, [facility] [place] [facility] [address] [id number] [place] [address] Jun, [facility] [place] [facility] [address] [id number] [place] [address] May, 2014 [facility] [place] [facility] [address] [id number] [place] [address] May, 2014 [facility] [place] [facility] [address] [id number] [place] [address] May, 2014 [facility] [place] [facility] [address] [id number] [place] [address] May, [facility] [place] [facility] [address] [id number] [place] [address] Apr, [facility] [place] [facility] [address] [id number] [place] [address] Mar, [facility] [place] [facility] [address] [id number] [place] [address] Mar, [facility] [place] [facility] [address] [id number] [place] [address] Mar, [facility] [place] [facility] [address] [id number] [place] [address] Mar, [facility] [place] [facility] [address] [id number] [place] [address] Mar, [facility] [place] [facility] [address] [id number] [place] [address] Mar, [facility] [place] [facility] [address] [id number] [place] [address] Mar, [facility] [place] [facility] [address] [id number] [place] [address] Mar, [facility] [place] [facility] [address] [id number] [place] [address] Mar, [facility] [place] [facility] [address] [id number] [place] [address] Feb, [facility] [place] [facility] [address] [id number] [place] [address] Feb, [facility] [place] [facility] [address] [id number] [place] [address] 17 Feb, 2014 [facility] [place] [facility] [address] [id number] [place] [address] 17 Feb, 2014 [facility] [place] [facility] [address] [id number] [place] [address] 14 Feb, 2014 [facility] [place] [facility] [address] [id number] [place] [address] 14 Feb, 2014 [facility] [place] [facility] [id number] [place] [address] Feb, [facility] [place] [facility] [address] [id number] [place] [address] Feb, [facility] [place] [facility] [address] [id number] [place] [address] 23 Jan, 2014 [facility] [place] [facility] [address] [id number] [place] [address] 23 Jan, 2014 [facility] [place] [facility] [address] [id number] [place] [address] 16 Jan, 2014 [facility] [place] [facility] [address] [id number] [place] [address] 16 Jan, 2014 [facility] [place] [facility] [address] [id number] [place] [address] 15 Jan, 2014 [facility] [place] [facility] [address] [id number] [place] [address] 15 Jan, 2014 [facility] [place] [facility] [address] [id number] [place] [address] 14 Jan, 2014 [facility] [place] [facility] [address] [id number] [place] [address] 14 Jan, 2014 [facility] [place] [facility] [address] [id number] [place] [address] 14 Jan, 2014 [facility] [place] [facility] [address] [id number] [place] [address] 14 Jan, 2014 [facility] [place] [facility] [address] [id number] [place] [address] 18 Dec, 2013 [facility] [place] [facility] [address] [id number] [place] [address] Dec, [facility] [place] [facility] [address] [id number] [place] [address] Dec, [facility] [place] [facility] [address] [id number] [place] [address] Dec, [facility] [place] [facility] [address] [id number] [place] [address] Nov, [facility] [place] [facility] [address] [id number] [place] [address] Nov, [facility] [place] [facility] [address] [id number] [place] [address] Nov, [facility] [place] [facility] [address] [id number] [place] [address] Nov, [facility] [place] [facility] [address] [id number] [place] [address] Nov, [facility] [place] [facility] [address] [id number] [place] [address] Oct, [facility] [place] [facility] [address] [id number] [place] [address] Oct, [facility] [place] [facility] [address] [id number] [place] [address] Oct, [facility] [place] [facility] [address] [id number] [place] [address] Oct, [facility] [place] [facility] [address] [id number] [place] [address] Sep, [facility] [place] [facility] [address] [id number] [place] [address] Sep, [facility] [place] [facility] [address] [id number] [place] [address] Sep, [facility] [place] [facility] [address] [id number] [place] [address] Sep, [facility] [place] [facility] [address] [id number] [place] [address] Sep, [facility] [place] [facility] [address] [id number] [place] [address] Sep, [facility] [place] [facility] [address] [id number] [place] [address] Sep, [facility] [place] [facility] [address] [id number] [place] [address] Sep, [facility] [place] [facility] [address] [id number] [place] [address] August, [facility] [place] [facility] [address] [id number] [place] [address] August, [facility] [place] [facility] [address] [id number] [place] [address] August, [facility] [place] [facility] [address] [id number] [place] [address] August, [facility] [place] [facility] [address] [id number] [place] [address] August, [facility] [place] [facility] [address] [id number] [place] [address] August, [facility] [place] [facility] [address] [id number] [place] [address] August, [facility] [place] [facility] [address] [id number] [place] [address] Jul, [facility] [place] [facility] [address] [id number] [place] [address] Jul, [facility] [place] [facility] [address] [id number] [place] [address] Jul, [facility] [place] [address] [id number] [place] [address] Jul, [facility] [address] [id number] [place] [address] Jul, [facility] [address] [id number] [place] [address] Jul, [facility] [address] [id number] [place] [address] Jul, [facility] [address] [id number] [place] [address] Jul, [facility] [address] [id number] [place] [address] Jul, [facility] [address] [id number] [place] [address] Jul, [facility] [address] [id number] [place] [address] Jul, [facility] [address] [id number] [place] [address] Jul, [facility] [address] [id number] [place] [address] Jun, [facility] [address] [id number] [place] [address] Jun, [facility] [address] [id number] [place] [address] Jun, [facility] [address] [id number] [place] [address] Jun, [facility] [address] [id number] [place] [address] Jun, [facility] [address] [id number] [place] [address] May, [facility] [address] [id number] [place] [address] May, [facility] [address] [id number] [place] [address] May, [facility] [address] [id number] [place] [address] May, [facility] [address] [id number] [place] [address] May, [facility] [address] [id number] [place] [address] May, 2013 [facility] [address] [id number] [place] [address] May, 2013 [facility] [address] [id number] [place] [address] May, [facility] [address] [id number] [place] [address] Mar, [facility] [address] [id number] [place] [address] Mar, [facility] [address] [id number] [place] [address] Mar, [facility] [address] [id number] [place] [address] Mar, [facility] [address] [id number] [place] [address] Mar, [facility] [address] [id number] [place] [address] Mar, [facility] [facility] [address] [id number] [place] [address] Feb, [facility] [address] [id number] [place] [address] Feb, [facility] [address] [id number] [place] [address] Jan, [facility] [address] [id number] [place] [address] Jan, [facility] [address] [id number] [place] [address] Jan, [facility] [id number] [place] [address] Jan, [facility] [address] [id number] [place] [address] Jan, [facility] [id number] [place] [address] Jan, [facility] [address] [id number] [place] [address] Jan, [facility] [address] [id number] [place] [address] Jan, [facility] [address] [id number] [place] [address] Jan, [facility] [address] [id number] [place] [address] Jan, [facility] [address] [id number] [place] [address] Dec, [facility] [address] [id number] [place] [address] Nov, [facility] [address] [id number] [place] [address] Nov, [facility] [address] [id number] [place] [address] Nov, [facility] [address] [id number] [place] [address] Oct, [facility] [address] [id number] [place] [address] Oct, [facility] [address] [id number] [place] [address] August, [facility] [address] [id number] [place] [address] Apr, [facility] [address] [id number] [place] [address] Apr, [facility] [address] [id number] [place] [address] Feb, [facility] [address] [id number] [place] [address] Feb, [facility] [address] [id number] [place] [address] Dec, [facility] [address] [id number] [place] [address] Dec, [facility] [address] [id number] [place] [address] Oct, [facility] [address] [id number] [place] [address] Oct[facility] [address] [id number] [place] [address] Oct, [facility] [address] [id number] [place] [address] Jul, IMMUNIZATIONS No Known Immunizations SOCIAL HISTORY [...]
--- OUTSIDE RECORDS SUMMARY | 2019-07-07 04:06 | XMS REPORT ---
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 Name Role Phone RODO Hewitt Unavailable PROBLEMS Type Condition ICD9-CM Code ADU13-PP Code Onset Dates Condition S tatus SNOMED Code Problem Type 2 diabetes mellitus wit hout complication, without long-term current use of insulin E11.9 Active 876804500 Problem Gastroesophageal reflux disease without esophagitis K21.9 Active 781639258 Problem History of lupus Z87.39 Active 312 872676 Problem Schizoaffective disorder, depressive type F25.1 Active 81747531 Problem Seasonal allergic rhinitis due to other allergic trigger J30.89 Active 027746747 Problem DM neuro manif type II E11.49 Active 98858177 Problem Primary insomnia F51.01 Active 397 2004 Problem Diabetic polyneuropathy associated with type 2 d iabetes mellitus E11.42 Active 776757845 Problem Chronic pain syndrome G89.4 Active 018690305 Problem 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, 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 Active 774222207 Problem Morbid obesity due to excess calories E66.01 Active 402148707 Problem OAB (overactive bladder) N32.81 Activ e 318323148 Problem Paranoid schizophrenia F20.0 Active 71555829 Problem Gastroesophageal reflux disease, esophagitis pre sence not specified K21.9 Active 314269504 Problem Tobacco abuse Z72.0 Active 980215 000 Problem Dyslipidemia E78.5 Active 9344623 07 Problem Migraine without aura and without status migrain osus, not intractable G43.009 Active 901646363 Problem Hypothyroidism (acquired) E03.9 Acti ve 143211092 Problem Essential hypertension I10 Active 55572345 Problem Seasonal allergic rhinitis due to pollen J30.1 Active 81822764 Problem Chronic obstructive pulmonary disease, unspecified COPD ty pe J44.9 Active 66403151 Problem COPD exacerbation J44.1 Active 19 4208198 Problem Depression with anxiety F41.8 Active 980302753 Problem Cigarette nicotine dependence without complication F17.210 Active 41484752 Problem Allergic rhinitis, unspecified seasonality, unspecifie d trigger J30.9 Active 77358254 Problem Constipation by delayed colonic transit K59.01 Active 53457080 Problem Constipation, unspecified constipation type K59.00 Active 12820085 Problem Other allergic rhinitis J30.89 Active 612873403 Problem Constipation, unspecified constipation type K59.00 Active 75964079 Problem Menopausal syndrome (hot flashes) N95.1 Active 787214121 Problem Other seasonal allergic rhinitis J30.2 Active 236205557 Problem BMI 31.0-31.9,adult Z68.31 Active 625768809 Problem Vaginal dryness, menopausal N95.1 Ac tive 82206162 Problem Diverticulitis K57.92 Active 62043 6006 Problem BMI 40.0-44.9, adult Z68.41 Active 752329793 ALLERGIES No Information ENCOUNTERS Encounter Location Date Diagnosis [facility] [address] [address] Jul, [facility] [address] [address] May, [place] [address] [address] Apr, [facility] [address] [facility] [id number] [address] [place] [address] Apr, Sore throat J02.9 and Non-re current acute suppurative otitis media of both ears without spontaneous rupture of tympanic membranes H66.003 [facility] [address] [address] Apr, [facility] [address] [address] Apr, [place] [address] [address] Apr, Schizoaffective disorder, depressive typ e F25.1 [facility] [address] [address] Mar, Schizoaffective disorder, depressive typ e F25.1 [facility] [address] [address] Mar, [facility] [address] [facility] [id number] [address] [place] [address] Mar, Acute nasopharyngitis J00 [facility] [address] [address] Mar, [place] [address] [address] Mar, [facility] [address] [id number] Mar, Caries K02.9 [facility] [address] [id number] Feb, Dental examination Z01.20 and Caries K02 .9 [place] [address] [address] Feb, Constipation, unspecified constipation t ype K59.00 ; Acute hemorrhoid K64.9 ; Tobacco abuse Z72.0 ; BMI 40.0-44.9, adult Z68.41 and Dyslipidemia E78.5 [place] [address] [address] Feb, [place] [address] [address] Feb, [address] [address] Feb, Constipation, unspecified constipation t ype K59.00 ; Left lower quadrant abdominal pain R10.32 ; Hypothyroidism (acquired) E03.9 ; Tobacco abuse Z72.0 and BMI 40.0-44.9, adult Z68.41 [place] [address] [address] Feb, [place] [address] [address] Feb, Chronic obstructive pulmonary disease, u nspecified COPD type J44.9 [facility] [address] [address] Jan, [facility] [address] [place] [id number] Jan, Paranoid schizophrenia F20.0 [facility] [address] [address] Jan, [facility] [address] [address] Jan, [place] [address] [address] Jan, Diverticulitis K57.92 and Diarrhea, unsp ecified type R19.7 [place] [address] [address] 17 Jan, 2019 Paranoid schizophrenia F20.0 and Tobacco abuse Z72.0 [place] [address] [address] 15 Jan, 2019 Paranoid schizophrenia F20.0 [place] [address] [address] 14 Jan, 2019 Tobacco use Z72.0 [place] [address] [address] 14 Jan, 2019 Hypothyroidism (acquired) E03.9 and Type 2 diabetes mellitus without complication, without long-term current use of insulin E11.9 [place] [address] [address] 10 Jan, 2019 Paranoid schizophrenia F20.0 [place] [address] [address] 08 Jan, 2019 [place] [address] [address] 04 Jan, 2019 Chronic obstructive pulmonary disease, u nspecified COPD type J44.9 [place] [address] [address] Dec, [facility] [address] [address] Dec, Schizoaffective disorder, depressive typ e F25.1 [facility] [address] [address] Dec, [facility] [address] [address] Dec, [facility] [address] [address] Dec, Type 2 diabetes mellitus with diabetic [...] abuse Z72.0 and Encounter for immunization Z23 [place] [address] [address] Dec, Encounter for immunization Z23 [place] [address] [address] Dec, [facility] [address] [address] Dec, [facility] [address] [address] Dec, [facility] [address] [address] Dec, [facility] [address] [address] Dec, [facility] [address] [address] Dec, [facility] [address] [address] Nov, Paranoid schizophrenia F20.0 [facility] [address] [place] [id number] [place] [address] Nov, [facility] [address] [address] Nov, [facility] [address] [address] Nov, [facility] [address] [address] Nov, Encounter for comprehensive diabetic monique t examination, type 2 diabetes mellitus E11.9 and Morbid obesity E66.01 [facility] [address] [address] Nov, [facility] [address] [address] Nov, [facility] [address] [address] Nov, [facility] [address] [address] Nov, Schizoaffective disorder, depressive typ e F25.1 [facility] [address] [address] Nov, Constipation by delayed colonic transit K59.01 [facility] [address] [address] Oct, [facility] [address] [address] Oct, [facility] [address] [address] Oct, [facility] [address] [address] Oct, Chronic obstructive pulmonary disease, u nspecified COPD type J44.9 [facility] [address] [address] Oct, [facility] [address] [address] Sep, Paranoid schizophrenia F20.0 [facility] [address] [address] Sep, [facility] [address] [address] Sep, [facility] [address] [address] Sep, Encounter for immunization Z23 [facility] [address] [address] Sep, [facility] [address] [address] Sep, Closed fracture of right ankle, sequela S82.891S ; Morbid obesity E66.01 and Heat rash L74.0 [facility] [address] [address] Sep, Schizoaffective disorder, depressive typ e F25.1 [facility] [address] [address] Sep, [facility] [address] [address] Sep, [facility] [address] [address] Sep, [facility] [address] [address] Sep, [facility] [address] [address] Sep, [facility] [address] [address] Sep, [facility] [address] [address] Sep, [facility] [address] [address] 05 Sep, 2018 [facility] [address] [place] [address] Sep, [facility] [address] [address] August, Paranoid schizophrenia F20.0 [facility] [address] [place] [id number] [place] [address] August, [facility] [address] [address] August, [facility] [address] [address] August, [facility] [address] [address] August, Type 2 diabetes mellitus without complic ation, without long-term current use of insulin E11.9 ; Closed fracture of right ankle, initial encounter S82.891A ; Constipation by delayed colonic transit K59.01 ; Osteoporosis with pathological fracture, initial encounter M80.00XA ; Encounter for immunization Z23 and Morbid obesity E66.01 [facility] [address] [address] August, [facility] [address] [address] August, [facility] [address] [place] [id number] [place] [address] August, Acquired deformity of musculoskeletal sy stem, unspecified M95.9 [facility] [address] [place] [id number] [place] [address] August, Paranoid schizophrenia F20.0 [facility] [address] [id number] [place] [address] August, [facility] [address] [address] Jul, [facility] [address] [address] Jul, Diabetic polyneuropathy associated with type 2 diabetes mellitus E11.42 ; Paranoid schizophrenia F20.0 ; Preoperative clearance Z01.818 and Morbid obesity E66.01 [place] [address] [address] Jul, Paranoid schizophrenia F20.0 [place] [address] [address] Jul, [place] [address] [address] Jul, [place] [address] [address] Jul, Cigarette nicotine dependence without co mplication F17.210 [place] [address] [address] Jul, Type 2 diabetes mellitus without complic ation, without long-term current use of insulin E11.9 and Hypothyroidism (acquired) E03.[address] [address] Jul, Encounter for Medicare annual wellness e xam Z00.00 ; Morbid obesity due to excess calories E66.01 ; Diabetic polyneuropathy associated with type 2 diabetes mellitus E11.42 ; Chronic obstructive pulmonary disease, unspecified COPD type J44.9 ; Schizoaffective disorder, depressive type F25.1 ; Hypothyroidism (acquired) E03.9 and Morbid obesity E66.01 [place] [address] [address] Jun, Gastroesophageal reflux disease without esophagitis K21.9 [place] [address] [address] Jun, Paranoid schizophrenia F20.[address] [address] Jun, Schizoaffective disorder, depressive typ e F25.1 [place] [address] [address] Jun, [address] [address] Jun, Schizoaffective disorder, depressive typ e F25.1 [place] [address] [address] Jun, Cigarette nicotine dependence without co mplication F17.210 [place] [address] [address] Jun, Type 2 diabetes mellitus without complic ation, without long-term current use of insulin E11.9 [place] [address] [address] Jun, [place] [address] [address] Jun, [place] [address] [address] Jun, [place] [address] [address] Jun, [place] [address] [address] Jun, [place] [address] [address] Jun, Paranoid schizophrenia F20.0 ; Type 2 di abetes mellitus without complication, without long-term current use of insulin E11.9 ; Hypothyroidism (acquired) E03.9 and Morbid obesity E66.01 [place] [address] [address] May, Paranoid schizophrenia F20.0 [place] [address] [address] May, Hypothyroidism (acquired) E03.9 and Dysl ipidemia E78.5 [place] [address] [address] May, Cigarette nicotine dependence without co mplication F17.210 [place] [address] [address] May, [place] [address] [address] 14 May, 2018 Type 2 diabetes mellitus without complic ation, without long-term current use of insulin E11.9 ; Essential hypertension I10 ; Hypothyroidism (acquired) E03.9 and Dyslipidemia E78.5 [facility] [address] [address] 13 May, 2018 [place] [address] [address] May, Schizoaffective disorder, depressive typ e F25.1 [place] [address] [address] May, Paranoid schizophrenia F20.0 [place] [address] [address] 07 May, 2018 [facility] [address] [place] [address] 07 May, 19 [place] [address] [address] May, [place] [address] [address] May, Type 2 diabetes mellitus without complic ation, without long-term current use of insulin E11.9 ; Essential hypertension I10 ; Hypothyroidism (acquired) E03.9 and Dyslipidemia E78.5 [place] [address] [address] May, [facility] [address] [address] May, Acute nasopharyngitis J00 [facility] [address] [facility] [id number] [address] [place] [address] 04 May, 2018 Allergic rhinitis, unspecifi ed seasonality, unspecified trigger J30.9 [facility] [address] [address] May, [facility] [address] [address] 31 Apr, 2018 Schizoaffective disorder, depressive typ e F25.1 [place] [address] [address] Apr, [place] [address] [address] Apr, Cigarette nicotine dependence without co mplication F17.210 [place] [address] [address] 17 Apr, 2018 [place] [address] [address] Apr, Cigarette nicotine dependence without co mplication F17.210 [place] [address] [address] Apr, [place] [address] [address] Apr, Migraine without aura and without status migrainosus, not intractable G43.009 [place] [address] [address] Apr, Migraine without aura and without status migrainosus, not intractable G43.009 [place] [address] [address] Mar, Schizoaffective disorder, depressive typ e F25.1 ; BMI 45.0-49.9, adult Z68.42 and BMI 40.0-44.9, adult Z68.41 [place] [address] [address] Mar, Primary insomnia F51.01 [place] [address] [address] 10 Mar, 2018 [place] [address] [address] 14 Feb, 2018 Primary insomnia F51.01 [place] [address] [address] Feb, [place] [address] [address] Jan, Schizoaffective disorder, depressive typ e F25.1 and BMI 45.0-49.9, adult Z68.42 [place] [address] [address] Jan, [place] [address] [address] Jan, Type 2 diabetes mellitus with diabetic n europathic arthropathy, 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 ; Menopausal syndrome (hot flashes) N95.1 ; BMI 40.0-44.9, adult Z68.41 and Morbid obesity E66.01 [place] [address] [address] Jan, Paranoid schizophrenia F20.0 [place] [address] [address] Jan, [place] [address] [address] Jan, Schizoaffective disorder, depressive typ e F25.1 [place] [address] [address] Jan, [place] [address] [address] Jan, Chronic obstructive pulmonary disease, u nspecified COPD type J44.9 ; BMI 45.0-49.9, adult Z68.42 ; Type 2 diabetes mellitus without complication, without long-term current use of insulin E11.9 ; Hypothyroidism (acquired) E03.9 ; Encounter for immunization Z23 ; Gastroesophageal reflux disease without esophagitis K21.9 ; Primary insomnia F51.01 and Acute nasopharyngitis J00 [place] [address] [address] Dec, [address] [address] Dec, Schizoaffective disorder, depressive typ e F25.1 and BMI 45.0-49.9, adult Z68.42 [facility] [address] [address] Dec, [facility] [address] [address] 18 Dec, 2017 [facility] [address] [address] 18 Dec, 2017 Acute non-recurrent frontal sinusitis J0 1.10 [facility] [address] [address] 18 Dec, 2017 Acute non-recurrent frontal sinusitis J0 1.10 ; Weakness of left leg R29.898 ; At high risk for falls Z91.81 and BMI 45.0-49.9, adult Z68.42 [place] [address] [address] Dec, [facility] [address] [address] Dec, [facility] [address] [address] Dec, Schizoaffective disorder, depressive typ e F25.1 [facility] [address] [facility] [id number] [address] [place] [address] Dec, Acute nasopharyngitis J00 [facility] [address] [address] 05 Dec, 2017 Schizoaffective disorder, depressive typ e F25.1 [facility] [address] [address] Dec, [place] [address] [address] Nov, Schizoaffective disorder, depressive typ e F25.1 and BMI 45.0-49.9, adult Z68.42 [facility] [address] [address] Nov, [place] [address] [address] Nov, [place] [address] [address] Nov, Schizoaffective disorder, depressive typ e F25.1 [place] [address] [address] Nov, Well woman exam Z01.419 ; BMI 45.0-49.9, adult Z68.42 ; Screening breast examination Z12.31 and Dietary counseling and surveillance Z71.[address] [address] Nov, Paranoid schizophrenia F20.[address] [address] Nov, Gastroesophageal reflux disease, esophag itis presence not specified K21.9 [place] [address] [address] Oct, Paranoid schizophrenia F20.0 [facility] [id number] [place] [address] Oct, Chronic pain syndrome G89.4 and Schizoaffective disorder, depressive type F25.[address] [address] Oct, Chronic pain syndrome G89.4 and Schizoaf fective disorder, depressive type F25.1 [place] [address] [address] Oct, Type 2 diabetes mellitus without complic ation, without long-term current use of insulin E11.[address] [address] 12 Oct, 2017 Essential hypertension I10 and DM neuro manif type II E11.[address] [address] 11 Oct, 2017 [id number] [place] [address] Oct, Schizoaffective disorder, depressive typ e F25.1 and BMI 45.0-49.9, adult Z68.42 [place] [address] [address] Oct, [place] [address] [address] Oct, Paranoid schizophrenia F20.0 [place] [address] [address] Oct, Type 2 diabetes mellitus with diabetic n europathic arthropathy, 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 ; Essential hypertension I10 ; Hypothyroidism (acquired) E03.9 ; Chronic obstructive pulmonary disease, unspecified COPD type J44.9 and Diabetic polyneuropathy associated with type 2 diabetes mellitus E11.42 [place] [address] [address] Sep, Paranoid schizophrenia F20.0 [place] [address] [address] Sep, Paranoid schizophrenia F20.0 and BMI 45. 0-49.9, adult Z68.42 [place] [address] [address] Sep, Schizoaffective disorder, depressive typ e F25.1 [place] [address] [address] Sep, [place] [address] [address] Sep, Paranoid schizophrenia F20.0 [place] [address] [address] Sep, [place] [address] [address] Sep, Hypothyroidism (acquired) E03.9 [place] [address] [address] Sep, [facility] [address] [address] August, Schizoaffective disorder, depressive typ e F25.1 [facility] [address] [address] August, [facility] [address] [address] August, [facility] [address] [address] August, [place] [address] [address] August, Paranoid schizophrenia F20.0 [place] [address] [address] August, History of lupus Z87.39 and Chronic pain syndrome G89.4 [place] [address] [address] August, [facility] [address] [facility] [id number] [address] [place] [address] August, Seasonal allergic rhinitis, unspecified trigger J30.2 and BMI 45.0-49.9, adult Z68.42 [place] [address] [address] Jul, Schizoaffective disorder, depressive typ e F25.1 [place] [address] [address] Jul, [place] [address] [address] Jul, Hypothyroidism (acquired) E03.9 [place] [address] [address] 11 Jul, 2017 Chronic obstructive pulmonary disease, u nspecified COPD type J44.9 and Type 2 diabetes mellitus without complication, without long-term current use of insulin E11.9 [place] [address] [address] Jul, Paranoid schizophrenia F20.0 [facility] [address] [address] Jun, Hypothyroidism (acquired) E03.9 and Seas onal allergic rhinitis due to pollen J30.1 [facility] [address] [facility] [id number] [address] [place] [address] Jun, Shortness of breath at rest R06.02 ; COPD exacerbation J44.1 and BMI 45.0-49.9, adult Z68.42 [place] [address] [address] Jun, [place] [address] [address] Jun, Paranoid schizophrenia F20.0 ; Depressio n with anxiety F41.8 and BMI 45.0-49.9, adult Z68.42 [place] [address] [address] Jun, Schizoaffective disorder, depressive typ e F25.1 [facility] [address] [id number] Jun, 2017 Dental caries K02.9 [place] [address] [address] Jun, Paranoid schizophrenia F20.0 [place] [address] [address] May, Migraine without aura and without status migrainosus, not intractable G43.009 ; DM neuro manif type II E11.49 and Type 2 diabetes mellitus without complication, without long-term current use of insulin E11.9 [place] [address] [address] May, Migraine without aura and without status migrainosus, not intractable G43.009 [place] [address] [address] May, Depression with anxiety F41.8 [facility] [address] [id number] May, [facility] [address] [address] May, [facility] [address] [address] May, [facility] [address] [address] May, Hypothyroidism (acquired) E03.9 [place] [address] [address] May, Paranoid schizophrenia F20.0 [place] [address] [address] 08 May, 2017 Type 2 diabetes mellitus [...] N32.81 and Controlled substance agreement signed Z79.899 [place] [address] [address] May, Controlled substance agreement signed Z7 9.899 [place] [address] [address] Apr, [facility] [address] [id number] Apr, Dental examination Z01.20 [place] [address] [address] Apr, Paranoid schizophrenia F20.0 [facility] [address] [address] Apr, Hypertension, unspecified type I10 [facility] [address] [address] Apr, Paranoid schizophrenia F20.0 [facility] [address] [address] Apr, [facility] [address] [address] Apr, Tobacco abuse Z72.0 [facility] [address] [address] Apr, [facility] [address] [address] Mar, [facility] [address] [address] Mar, Paranoid schizophrenia F20.0 and BMI 45. 0-49.9, adult Z68.42 [facility] [address] [address] Mar, Schizoaffective disorder, depressive typ e F25.1 [facility] [address] [address] Mar, [facility] [address] [address] Mar, Hypothyroidism, unspecified type E03.9 [facility] [address] [address] Mar, Schizoaffective disorder, depressive typ e F25.1 [facility] [address] [facility] [id number] [address] [place] [address] Feb, Gastroenteritis K52.9 and BM I 45.0-49.9, adult Z68.42 [facility] [address] [address] Feb, [place] [address] [address] Feb, [place] [address] [address] Feb, [facility] [address] [address] Feb, [place] [address] [address] Feb, Paranoid schizophrenia F20.0 [place] [address] [address] Feb, Gastroesophageal reflux disease without esophagitis K21.9 ; Other seasonal allergic rhinitis J30.2 ; Other allergic rhinitis J30.89 ; Tobacco abuse Z72.0 and BMI 40.0-44.9, adult Z68.[address] [address] Feb, Onychomycosis B35.1 ; Callus of foot L84 and DM neuro manif type II E11.49 [place] [address] [address] Jan, Chronic allergic rhinitis J30.9 [place] [address] [address] Jan, [address] [address] Jan, Schizoaffective disorder, depressive typ e F25.1 [place] [address] [address] Jan, [facility] [address] [facility] [id number] [address] [place] [address] 07 Jan, 2017 Sore throat J02.9 and Season al allergic rhinitis due to other allergic trigger J30.89 [place] [address] [address] Jan, [place] [address] [address] Jan, [facility] [address] [place] [id number] [address] [place] [address] Jan, Chronic allergic rhinitis J3 0.9 [facility] [address] [address] Dec, Paranoid schizophrenia F20.0 ; Primary i nsomnia F51.01 and Schizoaffective disorder, depressive type F25.1 [place] [address] [address] Dec, Chronic pain syndrome G89.4 ; Cervicalgi a of bxjcnvlr-weivgwr-dbpxn region M54.2 ; Menopausal syndrome (hot flashes) N95.1 and Encounter for immunization Z23 [place] [address] [address] 14 Dec, 2016 [place] [address] [address] Dec, [place] [address] [address] 08 Dec, 2016 Paranoid schizophrenia F20.0 [place] [address] [address] Dec, Schizoaffective disorder, depressive typ e F25.1 [place] [address] [address] Nov, Hypothyroidism, unspecified type E03.9 [facility] [address] [place] [id number] [address] [place] [address] Nov, Acute seasonal allergic rhin itis due to other allergen J30.89 [place] [address] [address] Nov, [place] [address] [address] Nov, Hypothyroidism, unspecified type E03.9 a nd Other elevated white blood cell (WBC) count D72.828 [place] [address] [address] Nov, Schizoaffective disorder, depressive typ e F25.1 [place] [address] [address] Nov, Paranoid schizophrenia F20.0 [place] [address] [address] Nov, Type 2 diabetes mellitus without complic ation, without long-term current use of insulin E11.9 ; Morbid obesity due to excess calories E66.01 and Chronic pain syndrome G89.4 [place] [address] [address] Oct, Paranoid schizophrenia F20.0 [place] [address] [address] Oct, [place] [address] [address] Oct, Schizoaffective disorder, depressive typ e F25.1 [place] [address] [address] Oct, Hypothyroidism, unspecified type E03.9 a nd Other elevated white blood cell (WBC) count D72.828 [place] [address] [address] Oct, Morbid obesity due to excess calories E6 6.01 ; Chronic obstructive pulmonary disease, unspecified COPD type J44.9 ; History of lupus Z87.39 ; Hypothyroidism, unspecified type E03.9 ; Gastroesophageal reflux disease without esophagitis K21.9 ; Primary insomnia F51.01 and Chronic pain syndrome G89.4 [place] [address] [address] Sep, [place] [address] [address] Sep, [place] [address] [address] Sep, [facility] [address] [address] Sep, Paranoid schizophrenia F20.0 [facility] [address] [address] Sep, [facility] [address] [address] Sep, Paranoid schizophrenia F20.0 [facility] [address] [address] Sep, [facility] [address] [address] August, Paranoid schizophrenia F20.0 [facility] [address] [address] Jul, [facility] [address] [address] Jul, Type 2 diabetes mellitus without complic ation, without long-term current use of insulin E11.9 ; Morbid obesity due to excess calories E66.01 ; Depression with anxiety F41.8 ; Hypothyroidism, unspecified type E03.9 ; Seasonal allergic rhinitis due to other allergic trigger J30.89 ; Pain, dental K08.89 and Gastroesophageal reflux disease without esophagitis K21.9 [facility] [address] [id number] [place] [id number] Jul, Dental examination Z01.20 [facility] [address] [address] Jul, Paranoid schizophrenia F20.0 [facility] [address] [address] 13 Jun, 2016 Paranoid schizophrenia F20.0 and Depress ion with anxiety F41.8 [facility] [address] [address] Jun, Paranoid schizophrenia F20.0 and Depress ion with anxiety F41.8 [facility] [address] [address] 09 Jun, 2016 [place] [address] [address] Jun, [facility] [place] [address] [address] Jun, Seasonal allergic rhinitis d ue to other allergic trigger J30.[address] [address] May, Sore throat J02.9 ; Other vi ral agents as the cause of diseases classified elsewhere B97.89 and Acute upper respiratory infection, unspecified J06.[address] [address] 08 May, 2016 Paranoid schizophrenia F20.0 and Depress ion with anxiety F41.[address] [address] Apr, Other seasonal allergic rhinitis J30.2 [place] [address] [address] Apr, Paranoid schizophrenia F20.0 and Depress ion with anxiety F41.[address] [address] Apr, Bronchitis J40 and Sore thro at J02.[address] [address] Apr, Type 2 diabetes mellitus without complic ation, without long-term current use of insulin E11.9 [facility] [place] [address] [address] Apr, Bronchitis J40 [address] [address] Apr, [address] [address] Apr, [place] [address] [address] Mar, Type 2 diabetes mellitus without complic [...] R60.9 and Other seasonal allergic rhinitis J30.2 [place] [address] [address] Mar, Paranoid schizophrenia F20.0 and Depress ion with anxiety F41.8 [place] [address] [address] Feb, [place] [address] [address] Feb, [place] [address] [address] Feb, [place] [address] [address] Feb, [place] [address] [address] Feb, Type 2 diabetes mellitus without complic ation, without long-term current use of insulin E11.9 ; ARIAS on CPAP G47.33 and Preoperative evaluation to rule out surgical contraindication Z01.818 [place] [address] [address] Feb, Paranoid schizophrenia F20.0 and Depress ion with anxiety F41.8 [place] [address] [address] Jan, [place] [id number] Jan, Paranoid schizophrenia F20.0 and Depress ion with anxiety F41.8 [place] [address] [place] [id number] 17 Jan, 2016 [facility] [address] [address] 14 Jan, 2016 Muscle strain T14.8 [facility] [address] [address] Jan, Paranoid schizophrenia F20.0 [facility] [address] [address] Jan, [facility] [address] [address] Jan, Paranoid schizophrenia F20.0 and Depress ion with anxiety F41.8 [facility] [address] [address] Jan, [facility] [address] [address] Jan, [facility] [address] [address] 28 Dec, 2015 [facility] [address] [address] 23 Dec, 2015 Paranoid schizophrenia F20.0 [facility] [address] [address] 16 Dec, 2015 Paranoid schizophrenia F20.0 and Depress ion with anxiety F41.8 [facility] [address] [address] Nov, [facility] [address] [address] Nov, Paranoid schizophrenia F20.0 [facility] [address] [address] Nov, Paranoid schizophrenia F20.0 and Depress ion with anxiety F41.8 [facility] [address] [address] Nov, Type 2 diabetes mellitus without complic ation, without long-term current use of insulin E11.9 ; Paranoid schizophrenia F20.0 ; Chronic obstructive pulmonary disease, unspecified COPD type J44.9 ; Morbid obesity due to excess calories E66.01 and Parkinsonian tremor G20 [place] [address] [address] Nov, [place] [address] [address] Oct, Paranoid schizophrenia F20.0 [place] [address] [address] Oct, Paranoid schizophrenia F20.0 [place] [address] [address] Oct, Paranoid schizophrenia F20.0 and Depress ion with anxiety F41.8 [place] [address] [address] Oct, [place] [address] [address] Oct, Paranoid schizophrenia F20.0 and Depress ion with anxiety F41.8 [place] [address] [address] Oct, Nasal sore J34.89 [place] [address] [address] Oct, Type 2 diabetes mellitus without complic ation, without long-term current use of insulin E11.9 ; Depression with anxiety F41.8 ; Hypothyroidism, unspecified type E03.9 and History of lupus Z87.39 [place] [address] [address] Oct, [address] [address] Oct, Type 2 diabetes mellitus without complic [...] R60.9 and History of lupus Z87.39 [facility] [address] [address] Feb, [facility] [address] [address] Jan, [facility] [address] [address] Jan, [facility] [address] [address] Jan, [facility] [address] [address] Dec, [facility] [address] [address] Nov, [facility] [address] [address] Nov, [facility] [address] [address] Oct, [facility] [address] [address] Oct, [facility] [address] [address] Oct, [facility] [address] [address] Sep, Allergic rhinitis 477.9 [facility] [address] [address] 11 Sep, 2014 Rhinitis, allergic 477.9 [facility] [address] [address] 10 Sep, 2014 Rhinitis, allergic 477.9 [facility] [address] [address] Sep, [facility] [place] [facility] [address] [facility] [id number] [place] [address] August, [facility] [place] [facility] [address] [facility] [id number] [place] [address] August, [facility] [place] [facility] [address] [id number] [place] [address] August, [facility] [place] [facility] [address] [id number] [place] [address] Jul, [facility] [place] [facility] [address] [facility] [id number] [place] [address] Jul, [facility] [place] [facility] [address] [id number] [place] [address] Jul, [facility] [place] [facility] [address] [id number] [place] [address] Jun, [facility] [place] [facility] [address] [id number] [place] [address] Jun, [facility] [place] [facility] [address] [id number] [place] [address] Jun, [facility] [place] [facility] [address] [id number] [place] [address] Jun, [facility] [place] [facility] [address] [id number] [place] [address] Jun, [facility] [place] [facility] [address] [id number] [place] [address] Jun, [facility] [place] [facility] [address] [facility] [id number] [place] [address] Jun, [facility] [place] [facility] [address] [facility] [id number] [place] [address] Jun, [facility] [place] [facility] [address] [facility] [id number] [place] [address] May, [facility] [place] [facility] [address] [id number] [place] [address] May, [facility] [place] [facility] [address] [id number] [place] [address] 11 May, 2014 [facility] [place] [facility] [address] [id number] [place] [address] May, 2014 [facility] [place] [facility] [address] [id number] [place] [address] Apr, [facility] [place] [facility] [address] [id number] [place] [address] Mar, [facility] [place] [facility] [address] [id number] [place] [address] Mar, [facility] [place] [facility] [address] [id number] [place] [address] Mar, [facility] [place] [facility] [address] [id number] [place] [address] Mar, [facility] [place] [facility] [address] [id number] [place] [address] Mar, [facility] [place] [facility] [address] [id number] [place] [address] Mar, [facility] [place] [facility] [address] [id number] [place] [address] Mar, [facility] [place] [facility] [address] [id number] [place] [address] Mar, [facility] [place] [facility] [address] [id number] [place] [address] Mar, [facility] [place] [facility] [address] [id number] [place] [address] Feb, [facility] [place] [facility] [address] [id number] [place] [address] Feb, [facility] [place] [facility] [address] [id number] [place] [address] Feb, [facility] [place] [facility] [address] [id number] [place] [address] Feb, [facility] [place] [facility] [address] [id number] [place] [address] Feb, [facility] [place] [facility] [address] [id number] [place] [address] 14 Feb, 2014 [facility] [place] [facility] [address] [id number] [place] [address] 12 Feb, 2014 [facility] [place] [facility] [address] [id number] [place] [address] 12 Feb, 2014 [facility] [place] [facility] [address] [id number] [place] [address] 23 Jan, 2014 [facility] [place] [facility] [address] [id number] [place] [address] 23 Jan, 2014 [facility] [place] [facility] [address] [id number] [place] [address] 16 Jan, 2014 [facility] [place] [facility] [address] [id number] [place] [address] 16 Jan, 2014 [facility] [place] [facility] [address] [id number] [place] [address] 15 Jan, 2014 [facility] [place] [facility] [address] [id number] [place] [address] 15 Jan, 2014 [facility] [place] [facility] [address] [id number] [place] [address] 14 Jan, 2014 [facility] [place] [facility] [address] [id number] [place] [address] 14 Jan, 2014 [facility] [place] [facility] [address] [id number] [place] [address] 14 Jan, 2014 [facility] [place] [facility] [address] [id number] [place] [address] 14 Jan, 2014 [facility] [place] [facility] [address] [id number] [place] [address] 18 Dec, 2013 [facility] [place] [facility] [address] [id number] [place] [address] 18 Sep, 2013 [facility] [place] [facility] [address] [id number] [place] [address] 10 Dec, 2013 [facility] [place] [facility] [address] [id number] [place] [address] Dec, [facility] [place] [facility] [address] [facility] [id number] [place] [address] Nov, [facility] [place] [facility] [address] [facility] [id number] [place] [address] Nov, [facility] [place] [facility] [address] [id number] [place] [address] Nov, [facility] [place] [facility] [address] [facility] [id number] [place] [address] Nov, [facility] [place] [facility] [address] [facility] [id number] [place] [address] Nov, [facility] [place] [facility] [address] [id number] [place] [address] Oct, [facility] [place] [facility] [address] [id number] [place] [address] Oct, [facility] [place] [facility] [address] [id number] [place] [address] Oct, [facility] [place] [facility] [address] [id number] [place] [address] Oct, [facility] [place] [facility] [address] [id number] [place] [address] Sep, [facility] [place] [facility] [address] [id number] [place] [address] Sep, [facility] [place] [facility] [address] [id number] [place] [address] Sep, [facility] [place] [facility] [address] [id number] [place] [address] Sep, [facility] [place] [facility] [address] [id number] [place] [address] Sep, [facility] [place] [facility] [address] [id number] [place] [address] Sep, [facility] [place] [facility] [address] [id number] [place] [address] Sep, [facility] [place] [facility] [address] [facility] [id number] [place] [address] Sep, [facility] [place] [facility] [address] [id number] [place] [address] August, [facility] [place] [facility] [address] [facility] [id number] [place] [address] August, [facility] [place] [facility] [address] [id number] [place] [address] August, [facility] [place] [facility] [address] [facility] [id number] [place] [address] August, [facility] [place] [facility] [address] [facility] [id number] [place] [address] August, [facility] [place] [facility] [address] [id number] [place] [address] August, [facility] [place] [facility] [address] [id number] [place] [address] August, [facility] [place] [facility] [address] [id number] [place] [address] Jul, [facility] [address] [id number] [facility] [address] Jul, [facility] [address] [id number] [place] [address] Jul, [facility] [address] [id number] [place] [address] Jul, [facility] [address] [id number] [place] [address] Jul, [facility] [address] [id number] [place] [address] Jul, [facility] [address] [id number] [facility] [address] 2013 [facility] [address] [id number] [place] [address] Jul, [facility] [address] [id number] [place] [address] Jul, [facility] [address] [id number] [place] [address] Jul, [facility] [address] [id number] [place] [address] Jul, [facility] [address] [id number] [place] [address] Jul, [facility] [address] [id number] [place] [address] Jun, [facility] [address] [id number] [place] [address] Jun, [facility] [address] [id number] [place] [address] Jun, [facility] [address] [id number] [place] [address] Jun, [facility] [address] [id number] [place] [address] Jun, [facility] [address] [id number] [place] [address] May, [facility] [address] [id number] [place] [address] May, [facility] [address] [id number] [place] [address] May, [facility] [address] [id number] [place] [address] May, [facility] [address] [id number] [place] [address] May, [facility] [address] [id number] [place] [address] May, [facility] [address] [id number] [place] [address] May, [facility] [address] [id number] [place] [address] May, [facility] [address] [id number] [place] [address] 09 Mar, 2012 [facility] [address] [id number] [place] [address] Mar, 2012 [facility] [address] [id number] [place] [address] Mar, 2012 [facility] [address] [id number] [place] [address] Mar, 2012 [facility] [address] [id number] [place] [address] Mar, 2012 [facility] [address] [id number] [place] [address] Mar, [facility] [address] [id number] [place] [address] Feb, [facility] [address] [id number] [place] [address] Feb, [facility] [address] [id number] [place] [address] Jan, [facility] [address] [id number] [place] [address] Jan, [facility] [address] [id number] [place] [address] Jan, [facility] [address] [id number] [place] [address] Jan, [facility] [address] [id number] [place] [address] Jan, [facility] [address] [id number] [place] [address] 10 Jan, 2013 [facility] [id number] [place] [address] Jan, [facility] [address] [id number] [place] [address] Jan, [facility] [address] [id number] [place] [address] Jan, [facility] [id number] [place] [address] Jan, [facility] [address] [id number] [place] [address] Dec, [facility] [address] [id number] [place] [address] Nov, [facility] [address] [id number] [place] [address] Nov, [facility] [address] [id number] [place] [address] Nov, [facility] [address] [id number] [place] [address] Oct, [facility] [address] [id number] [place] [address] Oct, [facility] [address] [id number] [place] [address] August, [facility] [address] [id number] [place] [address] Apr, [facility] [address] [id number] [place] [address] Apr, [facility] [address] [id number] [place] [address] Feb, [facility] [address] [id number] [place] [address] Feb, [facility] [address] [id number] [place] [address] Dec, [facility] [address] [id number] [place] [address] Dec, [facility] [address] [id number] [place] [address] Oct, [facility] [address] [id number] [place] [address] Oct, [facility] [address] [id number] [place] [address] Oct, [facility] [address] [facility] [id number] [place] [address] Jul, IMMUNIZATIONS No Known Immunizations SOCIAL HISTORY [...] psychosis/mental illness, last one in [facility] 4 years ago Hospitalization History broken ankle 08/2018
--- OUTSIDE RECORDS SUMMARY | 2019-07-07 04:07 | XMS REPORT ---
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 Name Role Phone EDWIN RUBYAUSTIN Unavailable PROBLEMS Type Condition ICD9-CM Code IBX71-XI Code Onset Dates Condition S tatus SNOMED Code Problem Type 2 diabetes mellitus wit hout complication, without long-term current use of insulin E11.9 Active 536130875 Problem Gastroesophageal reflux disease without esophagitis K21.9 Active 402396547 Problem History of lupus Z87.39 Active 312 546164 Problem Schizoaffective disorder, depressive type F25.1 Active 11359688 Problem Seasonal allergic rhinitis due to other allergic trigger J30.89 Active 307966774 Problem DM neuro manif type II E11.49 Active 99033057 Problem Primary insomnia F51.01 Active 397 2004 Problem Diabetic polyneuropathy associated with type 2 d iabetes mellitus E11.42 Active 837678339 Problem Chronic pain syndrome G89.4 Active 160845920 Problem 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, 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 Active 468159678 Problem Morbid obesity due to excess calories E66.01 Active 243786428 Problem OAB (overactive bladder) N32.81 Activ e 441088017 Problem Paranoid schizophrenia F20.0 Active 60846540 Problem Gastroesophageal reflux disease, esophagitis pre sence not specified K21.9 Active 426757628 Problem Tobacco abuse Z72.0 Active 192831 000 Problem Dyslipidemia E78.5 Active 6067633 07 Problem Migraine without aura and without status migrain osus, not intractable G43.009 Active 811378230 Problem Hypothyroidism (acquired) E03.9 Acti ve 662004769 Problem Essential hypertension I10 Active 19564460 Problem Seasonal allergic rhinitis due to pollen J30.1 Active 35608970 Problem Chronic obstructive pulmonary disease, unspecified COPD ty pe J44.9 Active 73115828 Problem COPD exacerbation J44.1 Active 19 5982284 Problem Depression with anxiety F41.8 Active 708927706 Problem Cigarette nicotine dependence without complication F17.210 Active 91938073 Problem Allergic rhinitis, unspecified seasonality, unspecifie d trigger J30.9 Active 66527353 Problem Constipation by delayed colonic transit K59.01 Active 85734241 Problem Constipation, unspecified constipation type K59.00 Active 26321055 Problem Other allergic rhinitis J30.89 Active 500727409 Problem Constipation, unspecified constipation type K59.00 Active 40950287 Problem Menopausal syndrome (hot flashes) N95.1 Active 446741180 Problem Other seasonal allergic rhinitis J30.2 Active 152023018 Problem BMI 31.0-31.9,adult Z68.31 Active 567462267 Problem Vaginal dryness, menopausal N95.1 Ac tive 91142933 Problem Diverticulitis K57.92 Active 61595 6006 Problem BMI 40.0-44.9, adult Z68.41 Active 524504829 ALLERGIES No Information ENCOUNTERS Encounter Location Date Diagnosis [place] [address] [address] Jul, [facility] [address] [address] 11 May, 2019 [facility] [address] [facility] [id number] [address] [place] [address] Apr, Sore throat J02.9 and Non-re current acute suppurative otitis media of both ears without spontaneous rupture of tympanic membranes H66.003 [place] [address] [address] Apr, [facility] [address] [address] Apr, [place] [address] [address] Apr, Schizoaffective disorder, depressive typ e F25.1 [place] [address] [place] [id number] [place] [address] Mar, Schizoaffective disorder, depressive typ e F25.1 [place] [address] [address] Mar, [facility] [address] [facility] [id number] [address] [place] [address] Mar, Acute nasopharyngitis J00 [facility] [address] [address] Mar, [facility] [address] [address] Mar, [facility] [address] [id number] Mar, Caries K02.9 [facility] [address] [id number] Feb, Dental examination Z01.20 [address] K02 .9 [facility] [address] [address] Feb, Constipation, unspecified constipation t ype K59.00 ; Acute hemorrhoid K64.9 ; Tobacco abuse Z72.0 ; BMI 40.0-44.9, adult Z68.41 and Dyslipidemia E78.5 [place] [address] [address] Feb, [facility] [address] [address] Feb, [place] [address] [address] Feb, Constipation, unspecified constipation t ype K59.00 ; Left lower quadrant abdominal pain R10.32 ; Hypothyroidism (acquired) E03.9 ; Tobacco abuse Z72.0 and BMI 40.0-44.9, adult Z68.41 [place] [address] [address] Feb, [facility] [address] [address] Feb, Chronic obstructive pulmonary disease, u nspecified COPD type J44.9 [facility] [address] [address] Jan, [facility] [address] [address] Jan, Paranoid schizophrenia F20.0 [facility] [address] [address] Jan, [place] [address] [address] Jan, [facility] [address] [address] Jan, Diverticulitis K57.92 and Diarrhea, unsp ecified type R19.7 [place] [address] [address] 17 Jan, 2019 Paranoid schizophrenia F20.0 and Tobacco abuse Z72.0 [place] [address] [address] 15 Jan, 2019 Paranoid schizophrenia F20.0 [place] [address] [address] 14 Jan, 2019 Tobacco use Z72.0 [place] [address] [address] 14 Jan, 2019 Hypothyroidism (acquired) E03.9 and Type 2 diabetes mellitus without complication, without long-term current use of insulin E11.9 [place] [address] [address] 10 Jan, 2019 Paranoid schizophrenia F20.0 [place] [address] [address] 08 Jan, 2019 [place] [address] [address] 04 Jan, 2019 Chronic obstructive pulmonary disease, u nspecified COPD type J44.9 [place] [address] [address] Dec, [place] [address] [address] Dec, Schizoaffective disorder, depressive typ e F25.1 [facility] [address] [address] Dec, [facility] [address] [address] Dec, [facility] [address] [address] Dec, Type 2 diabetes mellitus with diabetic [...] abuse Z72.0 and Encounter for immunization Z23 [place] [address] [address] Dec, Encounter for immunization Z23 [place] [address] [address] Dec, [place] [address] [address] Dec, [place] [address] [address] Dec, [facility] [address] [address] Dec, [facility] [address] [address] Dec, [facility] [address] [address] Dec, [facility] [address] [address] Nov, Paranoid schizophrenia F20.0 [facility] [address] [address] Nov, [facility] [address] [place] [address] [place] [address] Nov, [facility] [address] [address] Nov, [facility] [address] [place] [id number] [place] [address] Nov, Encounter for comprehensive diabetic monique t examination, type 2 diabetes mellitus E11.9 and Morbid obesity E66.01 [facility] [address] [place] [address] [place] [address] Nov, [facility] [address] [address] Nov, [facility] [address] [address] Nov, [facility] [address] [address] Nov, Schizoaffective disorder, depressive typ e F25.1 [facility] [address] [address] Nov, Constipation by delayed colonic transit K59.01 [facility] [address] [place] [address] [place] [address] Oct, [facility] [address] [address] Oct, [facility] [address] [place] [address] [place] [address] Oct, [facility] [address] [address] Oct, Chronic obstructive pulmonary disease, u nspecified COPD type J44.9 [facility] [address] [address] Oct, [facility] [address] [address] Sep, Paranoid schizophrenia F20.0 [facility] [address] [address] Sep, [facility] [address] [address] Sep, [facility] [address] [address] Sep, Encounter for immunization Z23 [facility] [address] [address] Sep, [facility] [address] [address] Sep, Closed fracture of right ankle, sequela S82.891S ; Morbid obesity E66.01 and Heat rash L74.0 [facility] [address] [address] Sep, Schizoaffective disorder, depressive typ e F25.1 [facility] [address] [address] Sep, [facility] [address] [address] Sep, [facility] [address] [address] Sep, [facility] [address] [address] Sep, [facility] [address] [address] Sep, [facility] [address] [address] Sep, [facility] [address] [address] Sep, [facility] [address] [address] Sep, [facility] [address] [address] Sep, [facility] [address] [address] August, Paranoid schizophrenia F20.0 [facility] [address] [address] August, [facility] [address] [address] August, [facility] [address] [address] August, [facility] [address] [address] August, Type 2 diabetes mellitus without complic ation, without long-term current use of insulin E11.9 ; Closed fracture of right ankle, initial encounter S82.891A ; Constipation by delayed colonic transit K59.01 ; Osteoporosis with pathological fracture, initial encounter M80.00XA ; Encounter for immunization Z23 and Morbid obesity E66.01 [facility] [address] [address] August, [facility] [address] [address] August, [facility] [address] [address] August, Acquired deformity of musculoskeletal sy stem, unspecified M95.9 [facility] [address] [address] August, Paranoid schizophrenia F20.0 [facility] [address] [id number] [place] [address] August, [facility] [address] [address] Jul, [facility] [address] [address] Jul, Diabetic polyneuropathy associated with type 2 diabetes mellitus E11.42 ; Paranoid schizophrenia F20.0 ; Preoperative clearance Z01.818 and Morbid obesity E66.01 [facility] [address] [address] Jul, Paranoid schizophrenia F20.0 [place] [address] [address] Jul, [place] [address] [address] Jul, [place] [address] [address] Jul, Cigarette nicotine dependence without co mplication F17.210 [place] [address] [address] Jul, Type 2 diabetes mellitus without complic ation, without long-term current use of insulin E11.9 and Hypothyroidism (acquired) E03.9 [place] [address] [address] Jul, Encounter for Medicare annual wellness e xam Z00.00 ; Morbid obesity due to excess calories E66.01 ; Diabetic polyneuropathy associated with type 2 diabetes mellitus E11.42 ; Chronic obstructive pulmonary disease, unspecified COPD type J44.9 ; Schizoaffective disorder, depressive type F25.1 ; Hypothyroidism (acquired) E03.9 and Morbid obesity E66.01 [place] [address] [address] Jun, Gastroesophageal reflux disease without esophagitis K21.9 [place] [address] [address] Jun, Paranoid schizophrenia F20.0 [place] [address] [address] Jun, Schizoaffective disorder, depressive typ e F25.1 [place] [address] [address] Jun, [place] [address] [address] Jun, Schizoaffective disorder, depressive typ e F25.1 [place] [address] [address] Jun, Cigarette nicotine dependence without co mplication F17.210 [place] [address] [address] Jun, Type 2 diabetes mellitus without complic ation, without long-term current use of insulin E11.9 [place] [address] [address] 15 Jun, 2018 [place] [address] [place] [address] Jun, [place] [address] [address] Jun, [place] [address] [address] Jun, [place] [address] [address] Jun, [place] [address] [address] Jun, Paranoid schizophrenia F20.0 ; Type 2 di abetes mellitus without complication, without long-term current use of insulin E11.9 ; Hypothyroidism (acquired) E03.9 and Morbid obesity E66.01 [place] [address] [address] 28 May, 2018 Paranoid schizophrenia F20.0 [place] [address] [address] 20 May, 2018 Hypothyroidism (acquired) E03.9 and Dysl ipidemia E78.5 [place] [address] [address] May, Cigarette nicotine dependence without co mplication F17.210 [place] [address] [address] 18 May, 2018 [place] [address] [address] 14 May, 2018 Type 2 diabetes mellitus without complic ation, without long-term current use of insulin E11.9 ; Essential hypertension I10 ; Hypothyroidism (acquired) E03.[address] [facility] [address] [address] May, [facility] [address] [address] May, Schizoaffective disorder, depressive typ e F25.1 [place] [address] [address] May, Paranoid schizophrenia F20.0 [place] [address] [address] 07 May, 2018 [address] [place] [address] 07 May, 19 [place] [address] [address] May, [place] [address] [address] May, Type 2 diabetes mellitus without complic ation, without long-term current use of insulin E11.9 ; Essential hypertension I10 ; Hypothyroidism (acquired) E03.9 and Dyslipidemia E78.5 [place] [address] [address] May, [facility] [address] [address] May, Acute nasopharyngitis J00 [facility] [address] [facility] [id number] [address] [place] [address] May, Allergic rhinitis, unspecifi ed seasonality, unspecified trigger J30.9 [facility] [address] [address] May, [facility] [address] [address] Apr, Schizoaffective disorder, depressive typ e F25.1 [place] [address] [address] Apr, [place] [address] [address] Apr, Cigarette nicotine dependence without co mplication F17.210 [place] [address] [address] Apr, [place] [address] [address] Apr, Cigarette nicotine dependence without co mplication F17.210 [place] [address] [address] Apr, [place] [address] [address] Apr, Migraine without aura and without status migrainosus, not intractable G43.009 [place] [address] [address] Apr, Migraine without aura and without status migrainosus, not intractable G43.009 [place] [address] [address] Mar, Schizoaffective disorder, depressive typ e F25.1 ; BMI 45.0-49.9, adult Z68.42 and BMI 40.0-44.9, adult Z68.41 [place] [address] [address] Mar, Primary insomnia F51.01 [place] [address] [address] Mar, [place] [address] [address] 14 Feb, 2018 Primary insomnia F51.01 [place] [address] [address] Feb, [place] [address] [address] Jan, Schizoaffective disorder, depressive typ e F25.1 and BMI 45.0-49.9, adult Z68.42 [place] [address] [address] Jan, [place] [address] [address] Jan, Type 2 diabetes mellitus with diabetic n europathic arthropathy, 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 ; Menopausal syndrome (hot flashes) N95.1 ; BMI 40.0-44.9, adult Z68.41 and Morbid obesity E66.01 [place] [address] [address] Jan, Paranoid schizophrenia F20.0 [place] [address] [address] 08 Jan, 2018 [place] [address] [address] Jan, Schizoaffective disorder, depressive typ e F25.1 [place] [address] [address] Jan, [place] [address] [address] 02 Jan, 2018 Chronic obstructive pulmonary disease, u nspecified COPD type J44.9 ; BMI 45.0-49.9, adult Z68.42 ; Type 2 diabetes mellitus without complication, without long-term current use of insulin E11.9 ; Hypothyroidism (acquired) E03.9 ; Encounter for immunization Z23 ; Gastroesophageal reflux disease without esophagitis K21.9 ; Primary insomnia F51.01 and Acute nasopharyngitis J00 [place] [address] [address] Dec, [place] [address] [address] Dec, Schizoaffective disorder, depressive typ e F25.1 and BMI 45.0-49.9, adult Z68.42 [place] [address] [address] Dec, [facility] [address] [address] Dec, [facility] [address] [address] 18 Dec, 2017 Acute non-recurrent frontal sinusitis J0 1.10 [facility] [address] [address] 18 Dec, 2017 Acute non-recurrent frontal sinusitis J0 1.10 ; Weakness of left leg R29.898 ; At high risk for falls Z91.81 and BMI 45.0-49.9, adult Z68.42 [place] [address] [address] 17 Dec, 2017 [facility] [address] [address] Dec, [facility] [address] [address] Dec, Schizoaffective disorder, depressive typ e F25.1 [facility] [address] [facility] [id number] [address] [place] [address] Dec, Acute nasopharyngitis J00 [facility] [address] [address] 05 Dec, 2017 Schizoaffective disorder, depressive typ e F25.1 [facility] [address] [address] Dec, [facility] [address] [address] Nov, Schizoaffective disorder, depressive typ e F25.1 and BMI 45.0-49.9, adult Z68.42 [facility] [address] [address] Nov, [facility] [address] [address] Nov, [place] [address] [address] Nov, Schizoaffective disorder, depressive typ e F25.1 [place] [address] [address] Nov, Well woman exam Z01.419 ; BMI 45.0-49.9, adult Z68.42 ; Screening breast examination Z12.31 and Dietary counseling and surveillance Z71.[address] [address] Nov, Paranoid schizophrenia F20.[address] [address] Nov, Gastroesophageal reflux disease, esophag itis presence not specified K21.[address] [address] Oct, Paranoid schizophrenia F20.0 [facility] [id number] [place] [address] Oct, Chronic pain syndrome G89.4 and Schizoaffective disorder, depressive type F25.[address] [address] Oct, Chronic pain syndrome G89.4 and Schizoaf fective disorder, depressive type F25.[address] [address] Oct, Type 2 diabetes mellitus without complic ation, without long-term current use of insulin E11.[address] [address] 12 Oct, 2017 Essential hypertension I10 and DM neuro manif type II E11.[address] [address] Oct, [address] [address] Oct, Schizoaffective disorder, depressive typ e F25.1 and BMI 45.0-49.9, adult Z68.42 [place] [address] [address] Oct, [place] [address] [address] Oct, Paranoid schizophrenia F20.0 [place] [address] [address] Oct, Type 2 diabetes mellitus with diabetic n europathic arthropathy, 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 ; Essential hypertension I10 ; Hypothyroidism (acquired) E03.9 ; Chronic obstructive pulmonary disease, unspecified COPD type J44.9 and Diabetic polyneuropathy associated with type 2 diabetes mellitus E11.42 [place] [address] [address] Sep, Paranoid schizophrenia F20.0 [place] [address] [address] Sep, Paranoid schizophrenia F20.0 and BMI 45. 0-49.9, adult Z68.42 [place] [address] [address] Sep, Schizoaffective disorder, depressive typ e F25.1 [place] [address] [address] Sep, [place] [address] [address] Sep, Paranoid schizophrenia F20.0 [place] [address] [address] Sep, [place] [address] [address] 06 Sep, 2017 Hypothyroidism (acquired) E03.9 [place] [address] [address] 05 Sep, 2017 [place] [address] [address] August, Schizoaffective disorder, depressive typ e F25.1 [place] [address] [address] August, [facility] [address] [address] August, [facility] [address] [address] August, [place] [address] [address] August, Paranoid schizophrenia F20.0 [place] [address] [address] August, History of lupus Z87.39 and Chronic pain syndrome G89.4 [place] [address] [address] August, [facility] [address] [facility] [id number] [address] [address] August, Seasonal allergic rhinitis, unspecified trigger J30.2 and BMI 45.0-49.9, adult Z68.42 [place] [address] [address] Jul, Schizoaffective disorder, depressive typ e F25.1 [place] [address] [address] Jul, [place] [address] [address] Jul, Hypothyroidism (acquired) E03.9 [place] [address] [address] Jul, Chronic obstructive pulmonary disease, u nspecified COPD type J44.9 and Type 2 diabetes mellitus without complication, without long-term current use of insulin E11.9 [place] [address] [address] Jul, Paranoid schizophrenia F20.0 [place] [address] [address] Jun, Hypothyroidism (acquired) E03.9 and Seas onal allergic rhinitis due to pollen J30.1 [facility] [address] [facility] [id number] [address] [place] [address] Jun, Shortness of breath at rest R06.02 ; COPD exacerbation J44.1 and BMI 45.0-49.9, adult Z68.42 [facility] [address] [address] Jun, [facility] [address] [address] Jun, Paranoid schizophrenia F20.0 ; Depressio n with anxiety F41.8 and BMI 45.0-49.9, adult Z68.42 [facility] [address] [address] Jun, Schizoaffective disorder, depressive typ e F25.1 [facility] [address] [id number] Jun, Dental caries K02.9 [place] [address] [address] Jun, Paranoid schizophrenia F20.0 [facility] [address] [address] May, Migraine without aura and without status migrainosus, not intractable G43.009 ; DM neuro manif type II E11.49 and Type 2 diabetes mellitus without complication, without long-term current use of insulin E11.9 [facility] [address] [address] May, Migraine without aura and without status migrainosus, not intractable G43.009 [facility] [address] [address] May, Depression with anxiety F41.8 [facility] [address] [place] [id number] May, [facility] [address] [address] May, [facility] [address] [address] May, [facility] [address] [address] [address] May, Hypothyroidism (acquired) E03.9 [facility] [address] [address] May, Paranoid schizophrenia F20.0 [place] [address] [address] May, Type 2 diabetes mellitus without complic [...] N32.81 and Controlled substance agreement signed Z79.899 [place] [address] [address] May, Controlled substance agreement signed Z7 9.899 [place] [address] [address] Apr, [facility] [address] [id number] [place] [id number] Apr, Dental examination Z01.20 [place] [address] [address] Apr, Paranoid schizophrenia F20.0 [place] [address] [address] Apr, Hypertension, unspecified type I10 [facility] [address] [address] Apr, Paranoid schizophrenia F20.0 [facility] [address] [address] Apr, [facility] [address] [address] Apr, Tobacco abuse Z72.0 [facility] [address] [address] Apr, [facility] [address] [address] Mar, [facility] [address] [address] Mar, Paranoid schizophrenia F20.0 and BMI 45. 0-49.9, adult Z68.42 [place] [address] [address] Mar, Schizoaffective disorder, depressive typ e F25.1 [place] [address] [address] Mar, [facility] [address] [address] Mar, Hypothyroidism, unspecified type E03.9 [facility] [address] [address] Mar, Schizoaffective disorder, depressive typ e F25.1 [facility] [address] [facility] [id number] [address] [place] [address] Feb, Gastroenteritis K52.9 and BM I 45.0-49.9, adult Z68.42 [facility] [address] [address] Feb, [facility] [address] [address] Feb, [address] [address] Feb, [address] [address] Feb, [address] [address] Feb, Paranoid schizophrenia F20.[address] [address] Feb, Gastroesophageal reflux disease without esophagitis K21.9 ; Other seasonal allergic rhinitis J30.2 ; Other allergic rhinitis J30.89 ; Tobacco abuse Z72.0 and BMI 40.0-44.9, adult Z68.[address] [address] Feb, Onychomycosis B35.1 ; Callus of foot L84 and DM neuro manif type II E11.[address] [address] Jan, Chronic allergic rhinitis J30.[address] [address] Jan, [address] [address] Jan, Schizoaffective disorder, depressive typ e F25.[address] [address] Jan, [facility] [address] [place] [id number] [address] [place] [address] Jan, Sore throat J02.9 and Season al allergic rhinitis due to other allergic trigger J30.[address] [address] Jan, [address] [address] Jan, [facility] [address] [place] [id number] [address] [place] [address] Jan, Chronic allergic rhinitis J3 0.9 [facility] [address] [address] Dec, Paranoid schizophrenia F20.0 ; Primary i nsomnia F51.01 and Schizoaffective disorder, depressive type F25.1 [place] [address] [address] Dec, Chronic pain syndrome G89.4 ; Cervicalgi a of txifzhxi-aorcvyp-kwtxm region M54.2 ; Menopausal syndrome (hot flashes) N95.1 and Encounter for immunization Z23 [place] [address] [address] Dec, [place] [address] [address] Dec, [place] [address] [address] 08 Dec, 2016 Paranoid schizophrenia F20.0 [place] [address] [address] Dec, Schizoaffective disorder, depressive typ e F25.1 [place] [address] [address] Nov, Hypothyroidism, unspecified type E03.9 [facility] [address] [facility] [id number] [address] [place] [address] Nov, Acute seasonal allergic rhin itis due to other allergen J30.89 [facility] [address] [address] Nov, [place] [address] [address] Nov, Hypothyroidism, unspecified type E03.9 a nd Other elevated white blood cell (WBC) count D72.828 [place] [address] [address] Nov, Schizoaffective disorder, depressive typ e F25.1 [place] [address] [address] Nov, Paranoid schizophrenia F20.0 [place] [address] [address] Nov, Type 2 diabetes mellitus without complic ation, without long-term current use of insulin E11.9 ; Morbid obesity due to excess calories E66.01 and Chronic pain syndrome G89.4 [place] [address] [address] Oct, Paranoid schizophrenia F20.0 [place] [address] [address] Oct, [place] [address] [address] Oct, Schizoaffective disorder, depressive typ e F25.1 [place] [address] [address] Oct, Hypothyroidism, unspecified type E03.9 a nd Other elevated white blood cell (WBC) count D72.828 [place] [address] [address] Oct, Morbid obesity due to excess calories E6 6.01 ; Chronic obstructive pulmonary disease, unspecified COPD type J44.9 ; History of lupus Z87.39 ; Hypothyroidism, unspecified type E03.9 ; Gastroesophageal reflux disease without esophagitis K21.9 ; Primary insomnia F51.01 and Chronic pain syndrome G89.4 [place] [address] [address] Sep, [place] [address] [address] Sep, [place] [address] [address] Sep, [place] [address] [address] Sep, Paranoid schizophrenia F20.0 [facility] [address] [address] Sep, [facility] [address] [address] Sep, Paranoid schizophrenia F20.0 [facility] [address] [address] Sep, [facility] [address] [address] August, Paranoid schizophrenia F20.0 [facility] [address] [address] Jul, [facility] [address] [address] Jul, Type 2 diabetes mellitus without complic ation, without long-term current use of insulin E11.9 ; Morbid obesity due to excess calories E66.01 ; Depression with anxiety F41.8 ; Hypothyroidism, unspecified type E03.9 ; Seasonal allergic rhinitis due to other allergic trigger J30.89 ; Pain, dental K08.89 and Gastroesophageal reflux disease without esophagitis K21.9 [facility] [address] [id number] Jul, Dental examination Z01.20 [facility] [address] [address] Jul, Paranoid schizophrenia F20.0 [facility] [address] [address] Jun, Paranoid schizophrenia F20.0 and Depress ion with anxiety F41.8 [facility] [address] [address] Jun, Paranoid schizophrenia F20.0 and Depress ion with anxiety F41.8 [facility] [address] [address] Jun, [facility] [address] [address] 08 Jun, 2016 [facility] [address] [place] [address] Jun, Seasonal allergic rhinitis d ue to other allergic trigger J30.89 [facility] [place] [address] [place] [id number] [place] [address] May, Sore throat J02.9 ; Other vi ral agents as the cause of diseases classified elsewhere B97.89 and Acute upper respiratory infection, unspecified J06.9 [place] [address] [address] 08 May, 2016 Paranoid schizophrenia F20.0 and Depress ion with anxiety F41.8 [place] [address] [address] Apr, Other seasonal allergic rhinitis J30.[address] [address] Apr, Paranoid schizophrenia F20.0 and Depress ion with anxiety F41.8 [facility] [place] [address] [address] Apr, Bronchitis J40 and Sore thro at J02.9 [place] [address] [address] Apr, Type 2 diabetes mellitus without complic ation, without long-term current use of insulin E11.9 [facility] [place] [address] [place] [id number] [place] [address] Apr, Bronchitis J40 [place] [address] [address] Apr, [place] [address] [address] Apr, [place] [address] [address] Mar, Type 2 diabetes mellitus without complic [...] R60.9 and Other seasonal allergic rhinitis J30.2 [place] [address] [address] Mar, Paranoid schizophrenia F20.0 and Depress ion with anxiety F41.8 [place] [address] [address] Feb, [place] [address] [address] Feb, [place] [address] [address] Feb, [place] [address] [address] Feb, [place] [address] [address] Feb, Type 2 diabetes mellitus without complic ation, without long-term current use of insulin E11.9 ; ARIAS on CPAP G47.33 and Preoperative evaluation to rule out surgical contraindication Z01.818 [place] [address] [address] Feb, Paranoid schizophrenia F20.0 and Depress ion with anxiety F41.8 [place] [address] [address] Jan, [place] [address] [address] Jan, Paranoid schizophrenia F20.0 and Depress ion with anxiety F41.8 [place] [address] [address] Jan, [place] [address] [address] 14 Jan, [address] [facility] [address] [address] 10 Jan, [address] [facility] [address] [address] 07 Jan, 2016 [facility] [address] [address] 05 Jan, 2016 Paranoid schizophrenia F20.0 and Depress ion with anxiety F41.8 [facility] [address] [address] 05 Jan, 2016 [facility] [address] [address] Jan, [facility] [address] [address] 28 Dec, 2015 [facility] [address] [address] 23 Dec, [address] [facility] [address] [address] 16 Dec, 2015 Paranoid schizophrenia F20.0 and Depress ion with anxiety F41.8 [facility] [address] [address] Nov, [facility] [address] [address] Nov, Paranoid schizophrenia F20.0 [facility] [address] [address] Nov, Paranoid schizophrenia F20.0 and Depress ion with anxiety F41.8 [facility] [address] [address] 05 Nov, 2015 Type 2 diabetes mellitus without complic ation, without long-term current use of insulin E11.9 ; Paranoid schizophrenia F20.0 ; Chronic obstructive pulmonary disease, unspecified COPD type J44.9 ; Morbid obesity due to excess calories E66.01 and Parkinsonian tremor G20 [place] [address] [address] Nov, [place] [address] [address] Oct, Paranoid schizophrenia F20.0 [place] [address] [address] Oct, Paranoid schizophrenia F20.0 [place] [address] [address] Oct, Paranoid schizophrenia F20.0 and Depress ion with anxiety F41.8 [place] [address] [address] Oct, [place] [address] [address] Oct, Paranoid schizophrenia F20.0 and Depress ion with anxiety F41.8 [place] [address] [address] Oct, Nasal sore J34.[address] [address] Oct, Type 2 diabetes mellitus without complic ation, without long-term current use of insulin E11.9 ; Depression with anxiety F41.8 ; Hypothyroidism, unspecified type E03.9 and History of lupus Z87.39 [place] [address] [address] Oct, [place] [address] [address] Oct, Type 2 diabetes mellitus without complic [...] Z87.39 [facility] [address] [place] [id number] [place] [address] Feb, [facility] [address] [place] [id number] [place] [address] Jan, [facility] [address] [address] Jan, [facility] [address] [address] Jan, [facility] [address] [address] Dec, [facility] [address] [address] Nov, [facility] [address] [address] Nov, [facility] [address] [place] [id number] [place] [address] Oct, [facility] [address] [address] Oct, [facility] [address] [address] Oct, [facility] [address] [address] Sep, Allergic rhinitis 477.9 [facility] [address] [address] Sep, Rhinitis, allergic 477.9 [facility] [address] [address] Sep, Rhinitis, allergic 477.9 [facility] [address] [address] Sep, [facility] [address] [address] August, [facility] [address] [facility] [id number] [place] [address] August, [facility] [address] [facility] [id number] [facility] [place] [address] August, [facility] [address] [facility] [id number] [place] [address] Jul, [facility] [address] [facility] [id number] [facility] [place] [address] 14 Jul, 2014 [facility] [address] [facility] [id number] [place] [address] Jul, [facility] [address] [id number] [place] [address] Jun, [facility] [address] [id number] [place] [address] Jun, [facility] [address] [id number] [place] [address] Jun, [facility] [address] [facility] [id number] [place] [address] Jun, [facility] [address] [id number] [place] [address] Jun, [facility] [address] [id number] [place] [address] Jun, [facility] [address] [id number] [place] [address] Jun, [facility] [address] [facility] [id number] [place] [address] Jun, [facility] [address] [facility] [id number] [place] [address] May, [facility] [address] [facility] [id number] [place] [address] May, [facility] [address] [id number] [place] [address] May, [facility] [address] [id number] [place] [address] May, [facility] [address] [id number] [place] [address] Apr, [facility] [address] [id number] [place] [address] Mar, [facility] [address] [id number] [place] [address] Mar, [facility] [address] [id number] [place] [address] Mar, [facility] [address] [id number] [place] [address] Mar, [facility] [address] [id number] [place] [address] Mar, [facility] [address] [id number] [place] [address] Mar, [facility] [address] [id number] [place] [address] Mar, [facility] [address] [id number] [place] [address] Mar, [facility] [address] [id number] [place] [address] Mar, [facility] [address] [id number] [place] [address] Feb, [facility] [address] [id number] [place] [address] Feb, [facility] [address] [id number] [place] [address] Feb, [facility] [address] [id number] [place] [address] Feb, [facility] [address] [id number] [place] [address] Feb, [facility] [address] [id number] [place] [address] Feb, [facility] [address] [id number] [place] [address] 12 Feb, 2014 [facility] [address] [id number] [place] [address] 12 Feb, 2014 [facility] [address] [id number] [place] [address] 23 Jan, 2014 [facility] [address] [id number] [place] [address] 23 Jan, 2014 [facility] [address] [id number] [place] [address] 16 Jan, 2014 [facility] [address] [id number] [place] [address] 16 Jan, 2014 [facility] [address] [id number] [place] [address] 15 Jan, 2014 [facility] [address] [id number] [place] [address] 15 Jan, 2014 [facility] [address] [id number] [place] [address] 14 Jan, 2014 [facility] [address] [id number] [place] [address] 14 Jan, 2014 [facility] [address] [id number] [place] [address] 14 Jan, 2014 [facility] [address] [id number] [place] [address] 14 Jan, 2014 [facility] [address] [id number] [place] [address] 18 Dec, 2013 [facility] [address] [id number] [place] [address] 18 Sep, 2013 [facility] [address] [id number] [place] [address] 10 Sep, 2013 [facility] [address] [id number] [place] [address] 10 Dec, 2013 [facility] [address] [id number] [place] [address] Nov, [facility] [address] [facility] [id number] [facility] [place] [address] Nov, [facility] [address] [facility] [id number] [facility] [place] [address] Nov, [facility] [address] [id number] [facility] [place] [address] Nov, [facility] [address] [facility] [id number] [facility] [place] [address] Nov, [facility] [address] [facility] [id number] [facility] [place] [address] Oct, [facility] [address] [facility] [id number] [facility] [place] [address] Oct, [facility] [address] [id number] [place] [address] Oct, [facility] [address] [id number] [place] [address] Oct, [facility] [address] [id number] [place] [address] Sep, [facility] [address] [id number] [place] [address] Sep, [facility] [address] [id number] [place] [address] Sep, [facility] [address] [id number] [place] [address] Sep, [facility] [address] [id number] [place] [address] Sep, [facility] [address] [id number] [place] [address] Sep, [facility] [address] [id number] [place] [address] Sep, [facility] [address] [id number] [place] [address] Sep, [facility] [address] [id number] [facility] [place] [address] August, [facility] [address] [id number] [place] [address] August, [facility] [address] [facility] [id number] [place] [address] August, [facility] [address] [id number] [place] [address] August, [facility] [address] [id number] [place] [address] August, [facility] [address] [id number] [place] [address] August, [facility] [address] [id number] [place] [address] August, [facility] [address] [id number] [place] [address] Jul, [facility] [address] [id number] [place] [address] Jul, [facility] [address] [id number] [facility] [place] [address] Jul, [facility] [address] [id number] [place] [address] Jul, [facility] [address] [id number] [place] [address] Jul, [facility] [address] [id number] [place] [address] Jul, [facility] [address] [facility] [id number] [place] [address] Jul, [facility] [address] [id number] [place] [address] Jul, [facility] [address] [id number] [place] [address] Jul, [facility] [address] [id number] [place] [address] Jul, [facility] [address] [id number] [place] [address] Jul, [facility] [address] [id number] [place] [address] Jul, [facility] [address] [id number] [place] [address] Jun, [facility] [address] [id number] [place] [address] Jun, [facility] [address] [id number] [place] [address] Jun, [facility] [address] [id number] [place] [address] Jun, [facility] [address] [id number] [place] [address] Jun, [facility] [address] [id number] [place] [address] May, [facility] [address] [id number] [place] [address] May, [facility] [address] [id number] [place] [address] May, [facility] [address] [id number] [place] [address] May, [facility] [address] [id number] [place] [address] May, [facility] [address] [id number] [place] [address] May, [facility] [address] [id number] [place] [address] May, [facility] [address] [id number] [place] [address] May, [facility] [address] [id number] [place] [address] Mar, [facility] [address] [id number] [place] [address] 09 Mar, 2013 [facility] [address] [id number] [place] [address] Mar, [facility] [address] [id number] [place] [address] Mar, [facility] [address] [id number] [place] [address] Mar, [facility] [address] [id number] [place] [address] Mar, [facility] [address] [id number] [place] [address] Feb, [facility] [address] [id number] [place] [address] Feb, [facility] [address] [id number] [place] [address] Jan, [facility] [address] [id number] [place] [address] Jan, [facility] [address] [id number] [place] [address] Jan, [facility] [address] [id number] [place] [address] Jan, [facility] [address] [id number] [place] [address] Jan, [facility] [address] [id number] [place] [address] Jan, [facility] [address] [id number] [place] [address] Jan, [facility] [id number] [place] [address] Jan, [facility] [address] [id number] [place] [address] 08 Jan, 2013 [facility] [address] [id number] [place] [address] Jan, [facility] [address] [id number] [place] [address] Dec, [facility] [address] [id number] [place] [address] Nov, [facility] [address] [id number] [place] [address] Nov, [facility] [address] [id number] [place] [address] Nov, [facility] [address] [id number] [place] [address] Oct, [facility] [address] [id number] [place] [address] Oct, [facility] [address] [id number] [place] [address] August, [facility] [address] [id number] [place] [address] Apr, [facility] [address] [id number] [place] [address] Apr, [facility] [address] [id number] [place] [address] Feb, [facility] [address] [id number] [place] [address] Feb, [facility] [address] [id number] [place] [address] Dec, [facility] [address] [id number] [place] [address] Dec, [facility] [address] [id number] [place] [address] Oct, [facility] [address] [id number] [place] [address] Oct, [facility] [address] [id number] [place] [address] Oct, [facility] [address] [id number] [place] [address] Jul, IMMUNIZATIONS No Known Immunizations SOCIAL HISTORY Never Assessed REASON FOR VISIT Medication refill request PLAN OF CARE VITAL SIGNS MEDICATIONS Medication Instructions Dosage Frequency Start Date End Date Duration S nesha HydrOXYzine HCl 50 mg Orally every 8 [...] hospitalizations for psychosis/mental illness, last one in [facility] 4 years ago Hospitalization History broken ankle 08/2018
--- OUTSIDE RECORDS SUMMARY | 2019-07-07 04:07 | XMS REPORT ---
Author Author Alayna Hewitt [facility] Address [address] [place] [address] Care Team Providers Care Statistical Engineer Name Role Phone RODO Heiwtt Unavailable PROBLEMS Type Condition ICD9-CM Code VYT95-TX Code Onset Dates Condition S tatus SNOMED Code Problem OAB (overactive bladder) N32.81 Activ e 461962371 Problem Gastroesophageal reflux disease without esophagitis K21.9 Active 857111300 Problem Paranoid schizophrenia F20.0 Active 30858698 Problem Schizoaffective disorder, depressive type F25.1 Active 87251436 Problem Seasonal allergic rhinitis due to other allergic trigger J30.89 Active 524976694 Problem DM neuro manif type II E11.49 Active 36997591 Problem Primary insomnia F51.01 Active 397 2004 Problem 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, 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 Active 485268531 Problem Morbid obesity due to excess calories E66.01 Active 518775216 Problem Diabetic polyneuropathy associated with type 2 d iabetes mellitus E11.42 Active 236675014 Problem Chronic obstructive pulmonary disease, unspecified COPD ty pe J44.9 Active 71803026 Problem Chronic pain syndrome G89.4 Active 822713245 Problem Depression with anxiety F41.8 Active 298574852 Problem Essential hypertension I10 Active 53169850 Problem Tobacco abuse Z72.0 Active 571608 000 Problem Dyslipidemia E78.5 Active 6821572 07 Problem Hypothyroidism (acquired) E03.9 Acti ve 756181265 Problem Migraine without aura and without status migrain osus, not intractable G43.009 Active 158321629 Problem Gastroesophageal reflux disease, esophagitis pre sence not specified K21.9 Active 854494230 Problem Seasonal allergic rhinitis due to pollen J30.1 Active 74279650 Problem History of lupus Z87.39 Active 312 644033 Problem COPD exacerbation J44.1 Active 19 8098129 Problem Type 2 diabetes mellitus wit hout complication, without long-term current use of insulin E11.9 Active 301196447 Problem Cigarette nicotine dependence without complication F17.210 Active 44928005 Problem Allergic rhinitis, unspecified seasonality, unspecifie d trigger J30.9 Active 41597390 Problem Constipation by delayed colonic transit K59.01 Active 41324791 Problem Constipation, unspecified constipation type K59.00 Active 69560552 Problem Other seasonal allergic rhinitis J30.2 Active 858441016 Problem Constipation, unspecified constipation type K59.00 Active 10200645 Problem Menopausal syndrome (hot flashes) N95.1 Active 932548945 Problem Other allergic rhinitis J30.89 Active 063206920 Problem Vaginal dryness, menopausal N95.1 Ac tive 85707860 Problem BMI 31.0-31.9,adult Z68.31 Active 585122541 Problem Diverticulitis K57.92 Active 35424 6006 Problem BMI 40.0-44.9, adult Z68.41 Active 254227668 ALLERGIES No Information ENCOUNTERS Encounter Location Date Diagnosis [place] [address] [address] Jul, [facility] [address] [address] May, [facility] [address] [facility] [id number] [address] [place] [address] Apr, Sore throat J02.9 and Non-re current acute suppurative otitis media of both ears without spontaneous rupture of tympanic membranes H66.003 [facility] [address] [address] Apr, [facility] [address] [address] Apr, [place] [address] [address] Apr, Schizoaffective disorder, depressive typ e F25.1 [facility] [address] [address] Mar, Schizoaffective disorder, depressive typ e F25.1 [place] [address] [place] [id number] [place] [address] Mar, [facility] [address] [facility] [id number] [address] [place] [address] Mar, Acute nasopharyngitis J00 [facility] [address] [address] Mar, [facility] [address] [address] Mar, [facility] [address] [id number] Mar, Caries K02.9 [facility] [address] [id number] Feb, Dental examination Z01.20 and Caries K02 .9 [place] [address] [address] Feb, Constipation, unspecified constipation t ype K59.00 ; Acute hemorrhoid K64.9 ; Tobacco abuse Z72.0 ; BMI 40.0-44.9, adult Z68.41 and Dyslipidemia E78.5 [place] [address] [address] Feb, [facility] [address] [address] Feb, [place] [address] [address] Feb, Constipation, unspecified constipation t ype K59.00 ; Left lower quadrant abdominal pain R10.32 ; Hypothyroidism (acquired) E03.9 ; Tobacco abuse Z72.0 and BMI 40.0-44.9, adult Z68.41 [place] [address] [address] Feb, [place] [address] [address] Feb, Chronic obstructive pulmonary disease, u nspecified COPD type J44.9 [place] [address] [address] Jan, [facility] [address] [address] Jan, Paranoid schizophrenia F20.0 [facility] [address] [address] Jan, [facility] [address] [address] Jan, [facility] [address] [address] Jan, Diverticulitis K57.92 and Diarrhea, unsp ecified type R19.7 [place] [address] [address] 17 Jan, 2019 Paranoid schizophrenia F20.0 and Tobacco abuse Z72.0 [place] [address] [address] 15 Jan, 2019 Paranoid schizophrenia F20.0 [place] [address] [address] 14 Jan, 2019 Tobacco use Z72.0 [place] [address] [address] 14 Jan, 2019 Hypothyroidism (acquired) E03.9 and Type 2 diabetes mellitus without complication, without long-term current use of insulin E11.9 [place] [address] [address] 10 Jan, 2019 Paranoid schizophrenia F20.0 [place] [address] [address] 08 Jan, 2019 [facility] [address] [address] 04 Jan, 2019 Chronic obstructive pulmonary disease, u nspecified COPD type J44.9 [facility] [address] [address] Dec, [facility] [address] [address] Dec, Schizoaffective disorder, depressive typ e F25.1 [facility] [address] [address] Dec, [facility] [address] [address] Dec, [facility] [address] [address] Dec, Type 2 diabetes mellitus with diabetic [...] abuse Z72.0 and Encounter for immunization Z23 [place] [address] [address] Dec, Encounter for immunization Z23 [place] [address] [address] Dec, [place] [address] [address] Dec, [place] [address] [address] Dec, [facility] [address] [address] Dec, [facility] [address] [address] Dec, [facility] [address] [address] Dec, [facility] [address] [address] Nov, Paranoid schizophrenia F20.0 [facility] [address] [address] Nov, [facility] [address] [place] [id number] [place] [address] Nov, [facility] [address] [address] Nov, [facility] [address] [address] Nov, Encounter for comprehensive diabetic monique t examination, type 2 diabetes mellitus E11.9 and Morbid obesity E66.01 [facility] [address] [address] Nov, [facility] [address] [address] Nov, [facility] [address] [address] Nov, [facility] [address] [address] Nov, Schizoaffective disorder, depressive typ e F25.1 [facility] [address] [address] Nov, Constipation by delayed colonic transit K59.01 [facility] [address] [address] Oct, [facility] [address] [address] Oct, [facility] [address] [address] Oct, [facility] [address] [address] Oct, Chronic obstructive pulmonary disease, u nspecified COPD type J44.9 [facility] [address] [address] Oct, [facility] [address] [address] Sep, Paranoid schizophrenia F20.0 [facility] [address] [address] Sep, [facility] [address] [address] Sep, [facility] [address] [address] Sep, Encounter for immunization Z23 [facility] [address] [address] Sep, [facility] [address] [address] Sep, Closed fracture of right ankle, sequela S82.891S ; Morbid obesity E66.01 and Heat rash L74.0 [facility] [address] [address] Sep, Schizoaffective disorder, depressive typ e F25.1 [facility] [address] [address] Sep, [facility] [address] [address] Sep, [facility] [address] [address] Sep, [facility] [address] [address] Sep, [facility] [address] [address] Sep, [facility] [address] [address] Sep, [facility] [address] [address] Sep, [facility] [address] [address] Sep, [facility] [address] [address] Sep, [facility] [address] [place] [address] August, Paranoid schizophrenia F20.0 [facility] [address] [address] August, [facility] [address] [address] August, [facility] [address] [address] August, [facility] [address] [address] August, Type 2 diabetes mellitus without complic ation, without long-term current use of insulin E11.9 ; Closed fracture of right ankle, initial encounter S82.891A ; Constipation by delayed colonic transit K59.01 ; Osteoporosis with pathological fracture, initial encounter M80.00XA ; Encounter for immunization Z23 and Morbid obesity E66.01 [facility] [address] [address] August, [facility] [address] [address] August, [facility] [address] [address] August, Acquired deformity of musculoskeletal sy stem, unspecified M95.9 [facility] [address] [address] August, Paranoid schizophrenia F20.0 [facility] [address] [place] [id number] [place] [address] August, [facility] [address] [place] [id number] [place] [address] Jul, [facility] [address] [address] Jul, Diabetic polyneuropathy associated with type 2 diabetes mellitus E11.42 ; Paranoid schizophrenia F20.0 ; Preoperative clearance Z01.818 and Morbid obesity E66.01 [facility] [address] [address] Jul, Paranoid schizophrenia F20.0 [place] [address] [address] Jul, [place] [address] [address] Jul, [place] [address] [address] Jul, Cigarette nicotine dependence without co mplication F17.210 [place] [address] [address] Jul, Type 2 diabetes mellitus without complic ation, without long-term current use of insulin E11.9 and Hypothyroidism (acquired) E03.[address] [address] Jul, Encounter for Medicare annual wellness e xam Z00.00 ; Morbid obesity due to excess calories E66.01 ; Diabetic polyneuropathy associated with type 2 diabetes mellitus E11.42 ; Chronic obstructive pulmonary disease, unspecified COPD type J44.9 ; Schizoaffective disorder, depressive type F25.1 ; Hypothyroidism (acquired) E03.9 and Morbid obesity E66.01 [place] [address] [address] Jun, Gastroesophageal reflux disease without esophagitis K21.9 [place] [address] [address] Jun, Paranoid schizophrenia F20.0 [place] [address] [address] Jun, Schizoaffective disorder, depressive typ e F25.1 [place] [address] [address] Jun, [address] [address] Jun, Schizoaffective disorder, depressive typ e F25.1 [place] [address] [address] 19 Jun, 2018 Cigarette nicotine dependence without co mplication F17.210 [place] [address] [address] Jun, Type 2 diabetes mellitus without complic ation, without long-term current use of insulin E11.9 [place] [address] [address] 15 Jun, 2018 [place] [address] [place] [address] Jun, [place] [address] [address] Jun, [place] [address] [address] Jun, [place] [address] [address] Jun, [place] [address] [address] Jun, Paranoid schizophrenia F20.0 ; Type 2 di abetes mellitus without complication, without long-term current use of insulin E11.9 ; Hypothyroidism (acquired) E03.9 and Morbid obesity E66.01 [place] [address] [address] 28 May, 2018 Paranoid schizophrenia F20.0 [place] [address] [address] 20 May, 2018 Hypothyroidism (acquired) E03.9 and Dysl ipidemia E78.5 [place] [address] [address] May, Cigarette nicotine dependence without co mplication F17.210 [place] [address] [address] 18 May, 2018 [place] [address] [address] 14 May, 2018 Type 2 diabetes mellitus without complic ation, without long-term current use of insulin E11.9 ; Essential hypertension I10 ; Hypothyroidism (acquired) E03.9 and Dyslipidemia E78.5 [facility] [address] [address] 13 May, 2018 [facility] [address] [address] May, Schizoaffective disorder, depressive typ e F25.1 [place] [address] [address] May, Paranoid schizophrenia F20.0 [place] [address] [address] 07 May, 2018 [facility] [address] [place] [address] 07 May, 19 [place] [address] [address] May, [place] [address] [address] May, Type 2 diabetes mellitus without complic ation, without long-term current use of insulin E11.9 ; Essential hypertension I10 ; Hypothyroidism (acquired) E03.9 and Dyslipidemia E78.5 [place] [address] [address] May, [facility] [address] [address] May, Acute nasopharyngitis J00 [facility] [address] [facility] [id number] [address] [place] [address] May, Allergic rhinitis, unspecifi ed seasonality, unspecified trigger J30.9 [facility] [address] [address] May, [facility] [address] [address] Apr, Schizoaffective disorder, depressive typ e F25.1 [place] [address] [address] Apr, [place] [address] [address] Apr, Cigarette nicotine dependence without co mplication F17.210 [place] [address] [address] Apr, [place] [address] [address] Apr, Cigarette nicotine dependence without co mplication F17.210 [place] [address] [address] Apr, [place] [address] [address] Apr, Migraine without aura and without status migrainosus, not intractable G43.009 [place] [address] [address] Apr, Migraine without aura and without status migrainosus, not intractable G43.009 [place] [address] [address] Mar, Schizoaffective disorder, depressive typ e F25.1 ; BMI 45.0-49.9, adult Z68.42 and BMI 40.0-44.9, adult Z68.41 [place] [address] [address] Mar, Primary insomnia F51.01 [place] [address] [address] Mar, [place] [address] [address] 14 Feb, 2018 Primary insomnia F51.01 [place] [address] [address] Feb, [place] [address] [address] Jan, Schizoaffective disorder, depressive typ e F25.1 and BMI 45.0-49.9, adult Z68.42 [place] [address] [address] Jan, [place] [address] [address] 16 Jan, 2018 Type 2 diabetes mellitus with diabetic n europathic arthropathy, 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 ; Menopausal syndrome (hot flashes) N95.1 ; BMI 40.0-44.9, adult Z68.41 and Morbid obesity E66.01 [place] [address] [address] Jan, Paranoid schizophrenia F20.0 [place] [address] [address] 08 Jan, 2018 [place] [address] [address] Jan, Schizoaffective disorder, depressive typ e F25.1 [place] [address] [address] Jan, [place] [address] [address] 02 Jan, 2018 Chronic obstructive pulmonary disease, u nspecified COPD type J44.9 ; BMI 45.0-49.9, adult Z68.42 ; Type 2 diabetes mellitus without complication, without long-term current use of insulin E11.9 ; Hypothyroidism (acquired) E03.9 ; Encounter for immunization Z23 ; Gastroesophageal reflux disease without esophagitis K21.9 ; Primary insomnia F51.01 and Acute nasopharyngitis J00 [place] [address] [address] Dec, [place] [address] [address] Dec, Schizoaffective disorder, depressive typ e F25.1 and BMI 45.0-49.9, adult Z68.42 [place] [address] [address] Dec, [facility] [address] [address] Dec, [facility] [address] [address] Dec, Acute non-recurrent frontal sinusitis J0 1.10 [facility] [address] [address] 18 Dec, 2017 Acute non-recurrent frontal sinusitis J0 1.10 ; Weakness of left leg R29.898 ; At high risk for falls Z91.81 and BMI 45.0-49.9, adult Z68.42 [place] [address] [address] Dec, [facility] [address] [address] Dec, [facility] [address] [address] Dec, Schizoaffective disorder, depressive typ e F25.[address] [facility] [address] [facility] [id number] [address] [place] [address] Dec, Acute nasopharyngitis J00 [facility] [address] [address] Dec, Schizoaffective disorder, depressive typ e F25.1 [facility] [address] [address] Dec, [facility] [address] [address] Nov, Schizoaffective disorder, depressive typ e F25.1 and BMI 45.0-49.9, adult Z68.42 [facility] [address] [address] Nov, [facility] [address] [address] Nov, [place] [address] [address] Nov, Schizoaffective disorder, depressive typ e F25.1 [place] [address] [address] Nov, Well woman exam Z01.419 ; BMI 45.0-49.9, adult Z68.42 ; Screening breast examination Z12.31 and Dietary counseling and surveillance Z71.3 [place] [address] [address] Nov, Paranoid schizophrenia F20.[address] [address] Nov, Gastroesophageal reflux disease, esophag itis presence not specified K21.[address] [address] Oct, Paranoid schizophrenia F20.0 [facility] [address] [id number] [place] [address] Oct, Chronic pain syndrome G89.4 and Schizoaffective disorder, depressive type F25.[address] [address] Oct, Chronic pain syndrome G89.4 and Schizoaf fective disorder, depressive type F25.[address] [address] Oct, Type 2 diabetes mellitus without complic ation, without long-term current use of insulin E11.[address] [address] 12 Oct, 2017 Essential hypertension I10 and DM neuro manif type II E11.[address] [address] Oct, [address] [address] Oct, Schizoaffective disorder, depressive typ e F25.1 and BMI 45.0-49.9, adult Z68.42 [place] [address] [address] Oct, [facility] [address] [address] Oct, Paranoid schizophrenia F20.0 [place] [address] [address] Oct, Type 2 diabetes mellitus with diabetic n europathic arthropathy, 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 ; Essential hypertension I10 ; Hypothyroidism (acquired) E03.9 ; Chronic obstructive pulmonary disease, unspecified COPD type J44.9 and Diabetic polyneuropathy associated with type 2 diabetes mellitus E11.42 [place] [address] [address] Sep, Paranoid schizophrenia F20.0 [place] [address] [address] Sep, Paranoid schizophrenia F20.0 and BMI 45. 0-49.9, adult Z68.42 [place] [address] [address] Sep, Schizoaffective disorder, depressive typ e F25.1 [place] [address] [address] Sep, [place] [address] [address] Sep, Paranoid schizophrenia F20.0 [place] [address] [address] Sep, [place] [address] [address] Sep, Hypothyroidism (acquired) E03.9 [place] [address] [address] 05 Sep, 2017 [place] [address] [address] August, Schizoaffective disorder, depressive typ e F25.1 [place] [address] [address] August, [facility] [address] [address] August, [place] [address] [address] August, [place] [address] [address] August, Paranoid schizophrenia F20.0 [place] [address] [address] August, History of lupus Z87.39 and Chronic pain syndrome G89.4 [place] [address] [address] August, [facility] [address] [facility] [id number] [address] [address] August, Seasonal allergic rhinitis, unspecified trigger J30.2 and BMI 45.0-49.9, adult Z68.42 [place] [address] [address] Jul, Schizoaffective disorder, depressive typ e F25.1 [place] [address] [address] Jul, [place] [address] [address] Jul, Hypothyroidism (acquired) E03.9 [place] [address] [address] Jul, Chronic obstructive pulmonary disease, u nspecified COPD type J44.9 and Type 2 diabetes mellitus without complication, without long-term current use of insulin E11.9 [place] [address] [address] Jul, Paranoid schizophrenia F20.0 [place] [address] [address] Jun, Hypothyroidism (acquired) E03.9 and Seas onal allergic rhinitis due to pollen J30.1 [facility] [address] [facility] [id number] [address] [place] [address] Jun, Shortness of breath at rest R06.02 ; COPD exacerbation J44.1 and BMI 45.0-49.9, adult Z68.42 [facility] [address] [address] Jun, [facility] [address] [address] Jun, Paranoid schizophrenia F20.0 ; Depressio n with anxiety F41.8 and BMI 45.0-49.9, adult Z68.42 [facility] [facility] [address] [address] Jun, Schizoaffective disorder, depressive typ e F25.1 [facility] [address] [id number] Jun, Dental caries K02.9 [place] [address] [address] Jun, Paranoid schizophrenia F20.0 [facility] [address] [address] May, Migraine without aura and without status migrainosus, not intractable G43.009 ; DM neuro manif type II E11.49 and Type 2 diabetes mellitus without complication, without long-term current use of insulin E11.9 [facility] [address] [address] May, Migraine without aura and without status migrainosus, not intractable G43.009 [facility] [address] [address] May, Depression with anxiety F41.8 [facility] [address] [place] [id number] May, [facility] [address] [address] May, [facility] [address] [address] May, [facility] [address] [address] May, Hypothyroidism (acquired) E03.9 [place] [address] [address] May, Paranoid schizophrenia F20.0 [place] [address] [address] May, Type 2 diabetes mellitus without complic [...] N32.81 and Controlled substance agreement signed Z79.899 [place] [address] [address] May, Controlled substance agreement signed Z7 9.899 [place] [address] [address] Apr, [facility] [address] [id number] [place] [id number] Apr, Dental examination Z01.20 [place] [address] [address] Apr, Paranoid schizophrenia F20.0 [place] [address] [address] Apr, Hypertension, unspecified type I10 [facility] [address] [address] Apr, Paranoid schizophrenia F20.0 [facility] [address] [address] Apr, [facility] [address] [address] Apr, Tobacco abuse Z72.0 [facility] [address] [address] Apr, [facility] [address] [address] Mar, [facility] [address] [address] Mar, Paranoid schizophrenia F20.0 and BMI 45. 0-49.9, adult Z68.42 [place] [address] [address] Mar, Schizoaffective disorder, depressive typ e F25.1 [place] [address] [address] Mar, [facility] [address] [address] Mar, Hypothyroidism, unspecified type E03.9 [facility] [address] [address] Mar, Schizoaffective disorder, depressive typ e F25.1 [facility] [address] [facility] [id number] [address] [place] [address] Feb, Gastroenteritis K52.9 and BM I 45.0-49.9, adult Z68.42 [facility] [address] [address] Feb, [facility] [address] [address] Feb, [place] [address] [address] Feb, [address] [address] Feb, [address] [address] Feb, Paranoid schizophrenia F20.[address] [address] Feb, Gastroesophageal reflux disease without esophagitis K21.9 ; Other seasonal allergic rhinitis J30.2 ; Other allergic rhinitis J30.89 ; Tobacco abuse Z72.0 and BMI 40.0-44.9, adult Z68.[address] [address] Feb, Onychomycosis B35.1 ; Callus of foot L84 and DM neuro manif type II E11.[address] [address] Jan, Chronic allergic rhinitis J30.[address] [address] Jan, [address] [address] Jan, Schizoaffective disorder, depressive typ e F25.[address] [address] Jan, [facility] [address] [place] [id number] [address] [place] [address] Jan, Sore throat J02.9 and Season al allergic rhinitis due to other allergic trigger J30.[address] [address] Jan, [address] [address] Jan, [facility] [address] [place] [id number] [address] [place] [address] Jan, Chronic allergic rhinitis J3 0.9 [facility] [address] [address] Dec, Paranoid schizophrenia F20.0 ; Primary i nsomnia F51.01 and Schizoaffective disorder, depressive type F25.1 [place] [address] [address] Dec, Chronic pain syndrome G89.4 ; Cervicalgi a of ukzvpvcs-kbvklrh-quevk region M54.2 ; Menopausal syndrome (hot flashes) N95.1 and Encounter for immunization Z23 [place] [address] [address] Dec, [place] [address] [address] Dec, [place] [address] [address] Dec, Paranoid schizophrenia F20.0 [place] [address] [address] Dec, Schizoaffective disorder, depressive typ e F25.1 [place] [address] [address] Nov, Hypothyroidism, unspecified type E03.[address] [facility] [address] [facility] [id number] [address] [place] [address] Nov, Acute seasonal allergic rhin itis due to other allergen J30.89 [facility] [address] [address] Nov, [place] [address] [address] Nov, Hypothyroidism, unspecified type E03.9 a nd Other elevated white blood cell (WBC) count D72.828 [place] [address] [address] Nov, Schizoaffective disorder, depressive typ e F25.1 [place] [address] [address] Nov, Paranoid schizophrenia F20.0 [place] [address] [address] Nov, Type 2 diabetes mellitus without complic ation, without long-term current use of insulin E11.9 ; Morbid obesity due to excess calories E66.01 and Chronic pain syndrome G89.4 [place] [address] [address] Oct, Paranoid schizophrenia F20.0 [place] [address] [address] Oct, [place] [address] [address] Oct, Schizoaffective disorder, depressive typ e F25.1 [place] [address] [address] Oct, Hypothyroidism, unspecified type E03.9 a nd Other elevated white blood cell (WBC) count D72.828 [place] [address] [address] Oct, Morbid obesity due to excess calories E6 6.01 ; Chronic obstructive pulmonary disease, unspecified COPD type J44.9 ; History of lupus Z87.39 ; Hypothyroidism, unspecified type E03.9 ; Gastroesophageal reflux disease without esophagitis K21.9 ; Primary insomnia F51.01 and Chronic pain syndrome G89.4 [place] [address] [address] Sep, [place] [address] [address] Sep, [place] [address] [address] Sep, [place] [address] [address] Sep, Paranoid schizophrenia F20.0 [facility] [address] [address] Sep, [facility] [address] [address] Sep, Paranoid schizophrenia F20.0 [facility] [address] [address] Sep, [facility] [address] [address] August, Paranoid schizophrenia F20.0 [facility] [address] [address] Jul, [facility] [address] [address] Jul, Type 2 diabetes mellitus without complic ation, without long-term current use of insulin E11.9 ; Morbid obesity due to excess calories E66.01 ; Depression with anxiety F41.8 ; Hypothyroidism, unspecified type E03.9 ; Seasonal allergic rhinitis due to other allergic trigger J30.89 ; Pain, dental K08.89 and Gastroesophageal reflux disease without esophagitis K21.9 [facility] [address] [place] [id number] [place] [id number] Jul, Dental examination Z01.20 [facility] [address] [address] Jul, Paranoid schizophrenia F20.0 [facility] [address] [address] 13 Jun, 2016 Paranoid schizophrenia F20.0 and Depress ion with anxiety F41.8 [facility] [address] [address] 10 Jun, 2016 Paranoid schizophrenia F20.0 and Depress ion with anxiety F41.8 [facility] [address] [address] 09 Jun, 2016 [facility] [address] [address] 08 Jun, 2016 [facility] [address] [place] [id number] [address] [place] [address] Jun, Seasonal allergic rhinitis d ue to other allergic trigger J30.89 [facility] [place] [address] [address] 25 May, 2016 Sore throat J02.9 ; Other vi ral agents as the cause of diseases classified elsewhere B97.89 and Acute upper respiratory infection, unspecified J06.9 [place] [address] [address] 08 May, 2016 Paranoid schizophrenia F20.0 and Depress ion with anxiety F41.8 [place] [address] [address] Apr, Other seasonal allergic rhinitis J30.[address] [address] Apr, Paranoid schizophrenia F20.0 and Depress ion with anxiety F41.[address] [facility] [place] [address] [address] Apr, Bronchitis J40 and Sore thro at J02.9 [place] [address] [address] Apr, Type 2 diabetes mellitus without complic ation, without long-term current use of insulin E11.[address] [facility] [place] [address] [address] Apr, Bronchitis J40 [place] [address] [address] Apr, [place] [address] [address] Apr, [address] [address] Mar, Type 2 diabetes mellitus without complic [...] R60.9 and Other seasonal allergic rhinitis J30.2 [place] [address] [address] Mar, Paranoid schizophrenia F20.0 and Depress ion with anxiety F41.8 [place] [address] [address] Feb, [place] [address] [address] Feb, [place] [address] [address] Feb, [place] [address] [address] Feb, [place] [address] [address] Feb, Type 2 diabetes mellitus without complic ation, without long-term current use of insulin E11.9 ; ARIAS on CPAP G47.33 and Preoperative evaluation to rule out surgical contraindication Z01.818 [place] [address] [address] Feb, Paranoid schizophrenia F20.0 and Depress ion with anxiety F41.8 [place] [address] [address] Jan, [place] [address] [address] Jan, Paranoid schizophrenia F20.0 and Depress ion with anxiety F41.8 [place] [address] [address] 17 Jan, 2016 [place] [address] [address] 14 Jan, 2016 Muscle strain T14.8 [facility] [address] [address] 10 Jan, 2016 Paranoid schizophrenia F20.0 [facility] [address] [address] 07 Jan, 2016 [facility] [address] [address] 05 Jan, 2016 Paranoid schizophrenia F20.0 and Depress ion with anxiety F41.8 [facility] [address] [address] 05 Jan, 2016 [facility] [address] [address] Jan, [facility] [address] [address] 28 Dec, 2015 [facility] [address] [address] 23 Dec, 2015 Paranoid schizophrenia F20.0 [facility] [address] [address] 16 Dec, 2015 Paranoid schizophrenia F20.0 and Depress ion with anxiety F41.8 [facility] [address] [address] Nov, [facility] [address] [address] Nov, Paranoid schizophrenia F20.0 [facility] [address] [address] Nov, Paranoid schizophrenia F20.0 and Depress ion with anxiety F41.8 [facility] [address] [address] 05 Nov, 2015 Type 2 diabetes mellitus without complic ation, without long-term current use of insulin E11.9 ; Paranoid schizophrenia F20.0 ; Chronic obstructive pulmonary disease, unspecified COPD type J44.9 ; Morbid obesity due to excess calories E66.01 and Parkinsonian tremor G20 [place] [address] [address] Nov, [place] [address] [address] Oct, Paranoid schizophrenia F20.0 [place] [address] [address] Oct, Paranoid schizophrenia F20.0 [place] [address] [address] Oct, Paranoid schizophrenia F20.0 and Depress ion with anxiety F41.[address] [address] Oct, [place] [address] [address] Oct, Paranoid schizophrenia F20.0 and Depress ion with anxiety F41.8 [place] [address] [address] Oct, Nasal sore J34.[address] [address] Oct, Type 2 diabetes mellitus without complic ation, without long-term current use of insulin E11.9 ; Depression with anxiety F41.8 ; Hypothyroidism, unspecified type E03.9 and History of lupus Z87.39 [place] [address] [address] Oct, [place] [address] [address] Oct, Type 2 diabetes mellitus without complic [...] edema R60.9 and History of lupus Z87.39 [facility] [address] [place] [id number] [place] [address] Feb, [facility] [address] [place] [id number] [place] [address] 14 Jan, 2015 [facility] [address] [address] Jan, [facility] [address] [address] Jan, [facility] [address] [address] Dec, [facility] [address] [address] Nov, [facility] [address] [address] Nov, [facility] [address] [address] Oct, [facility] [address] [address] Oct, [facility] [address] [address] Oct, [facility] [address] [address] Sep, Allergic rhinitis 477.9 [facility] [address] [address] Sep, Rhinitis, allergic 477.9 [facility] [address] [address] Sep, Rhinitis, allergic 477.9 [facility] [address] [address] Sep, [facility] [address] [address] August, [facility] [place] [facility] [address] [facility] [id number] [place] [address] August, [facility] [place] [facility] [address] [facility] [id number] [facility] [place] [address] August, [facility] [place] [facility] [address] [facility] [id number] [facility] [place] [address] Jul, [facility] [place] [facility] [address] [id number] [facility] [place] [address] 14 Jul, 2014 [facility] [place] [facility] [address] [facility] [id number] [facility] [place] [address] Jul, [facility] [place] [facility] [address] [id number] [place] [address] Jun, [facility] [place] [facility] [address] [id number] [place] [address] Jun, [facility] [place] [facility] [address] [id number] [place] [address] Jun, [facility] [place] [facility] [address] [facility] [id number] [place] [address] Jun, [facility] [place] [facility] [address] [id number] [place] [address] Jun, [facility] [place] [facility] [address] [id number] [place] [address] Jun, [facility] [place] [facility] [address] [id number] [place] [address] Jun, [facility] [place] [facility] [address] [facility] [id number] [place] [address] Jun, [facility] [place] [facility] [address] [facility] [id number] [place] [address] May, [facility] [place] [facility] [address] [facility] [id number] [place] [address] May, [facility] [place] [facility] [address] [id number] [place] [address] May, [facility] [place] [facility] [address] [id number] [place] [address] May, [facility] [place] [facility] [address] [id number] [place] [address] Apr, [facility] [place] [facility] [address] [id number] [place] [address] Mar, [facility] [place] [facility] [address] [id number] [place] [address] Mar, [facility] [place] [facility] [address] [id number] [place] [address] Mar, [facility] [place] [facility] [address] [id number] [place] [address] Mar, [facility] [place] [facility] [address] [id number] [place] [address] Mar, [facility] [place] [facility] [address] [id number] [place] [address] Mar, [facility] [place] [facility] [address] [id number] [place] [address] Mar, [facility] [place] [facility] [address] [id number] [place] [address] Mar, [facility] [place] [facility] [address] [id number] [place] [address] Mar, [facility] [place] [facility] [address] [id number] [place] [address] Feb, [facility] [place] [facility] [address] [id number] [place] [address] Feb, [facility] [place] [facility] [address] [id number] [place] [address] Feb, [facility] [place] [facility] [address] [id number] [place] [address] Feb, [facility] [place] [facility] [address] [id number] [place] [address] Feb, [facility] [place] [facility] [address] [id number] [place] [address] Feb, [facility] [place] [facility] [address] [id number] [place] [address] 12 Feb, 2014 [facility] [place] [facility] [address] [id number] [place] [address] 12 Feb, 2014 [facility] [place] [facility] [address] [id number] [place] [address] 23 Jan, 2014 [facility] [place] [facility] [address] [id number] [place] [address] 23 Jan, 2014 [facility] [place] [facility] [address] [id number] [place] [address] 16 Jan, 2014 [facility] [place] [facility] [address] [id number] [place] [address] 16 Jan, 2014 [facility] [place] [facility] [address] [id number] [place] [address] 15 Jan, 2014 [facility] [place] [facility] [address] [id number] [place] [address] 15 Jan, 2014 [facility] [place] [facility] [address] [id number] [place] [address] 14 Jan, 2014 [facility] [place] [facility] [address] [id number] [place] [address] 14 Jan, 2014 [facility] [place] [facility] [address] [id number] [place] [address] 14 Jan, 2014 [facility] [place] [facility] [address] [id number] [place] [address] 14 Jan, 2014 [facility] [place] [facility] [address] [id number] [place] [address] 18 Dec, 2013 [facility] [place] [facility] [address] [id number] [place] [address] 18 Sep, 2013 [facility] [place] [facility] [address] [id number] [place] [address] 10 Sep, 2013 [facility] [place] [facility] [address] [id number] [place] [address] 10 Sep, 2013 [facility] [place] [facility] [address] [id number] [place] [address] Nov, [facility] [place] [facility] [address] [facility] [id number] [facility] [place] [address] Nov, [facility] [place] [facility] [address] [facility] [id number] [place] [address] Nov, [facility] [place] [facility] [address] [id number] [facility] [place] [address] Nov, [facility] [place] [facility] [address] [facility] [id number] [place] [address] Nov, [facility] [place] [facility] [address] [facility] [id number] [facility] [address] Oct, [facility] [place] [facility] [address] [id number] [place] [address] Oct, [facility] [place] [facility] [address] [id number] [facility] [place] [address] Oct, [facility] [place] [facility] [address] [id number] [place] [address] Oct, [facility] [place] [facility] [address] [id number] [facility] [place] [address] Sep, [facility] [place] [facility] [address] [id number] [place] [address] Sep, [facility] [place] [facility] [address] [id number] [place] [address] Sep, [facility] [place] [facility] [address] [id number] [place] [address] Sep, [facility] [place] [facility] [address] [id number] [facility] [place] [address] Sep, [facility] [place] [facility] [address] [id number] [place] [address] Sep, [facility] [place] [facility] [address] [id number] [place] [address] Sep, [facility] [place] [facility] [address] [id number] [place] [address] Sep, [facility] [place] [facility] [address] [facility] [id number] [facility] [place] [address] August, [facility] [place] [facility] [address] [id number] [facility] [place] [address] August, [facility] [place] [facility] [address] [facility] [id number] [place] [address] August, [facility] [place] [facility] [address] [id number] [place] [address] August, [facility] [place] [facility] [address] [facility] [id number] [facility] [place] [address] August, [facility] [place] [facility] [address] [id number] [facility] [place] [address] August, [facility] [place] [facility] [address] [id number] [place] [address] August, [facility] [place] [facility] [address] [id number] [place] [address] Jul, [facility] [place] [facility] [address] [id number] [place] [address] Jul, [facility] [place] [facility] [address] [id number] [facility] [address] Jul, [facility] [place] [facility] [address] [id number] [place] [address] Jul, [facility] [place] [facility] [address] [id number] [place] [address] Jul, [facility] [place] [facility] [address] [id number] [place] [address] Jul, [facility] [place] [facility] [address] [id number] [place] [address] Jul, [facility] [place] [facility] [address] [id number] [place] [address] Jul, [facility] [place] [facility] [address] [id number] [place] [address] Jul, [facility] [place] [facility] [address] [id number] [place] [address] Jul, [facility] [place] [facility] [address] [id number] [place] [address] Jul, [facility] [place] [facility] [address] [id number] [place] [address] Jul, [facility] [address] [id number] [place] [address] Jun, [facility] [address] [id number] [place] [address] Jun, [facility] [address] [id number] [place] [address] Jun, [facility] [address] [id number] [place] [address] Jun, [facility] [address] [id number] [place] [address] Jun, [facility] [address] [id number] [place] [address] May, [facility] [address] [id number] [place] [address] May, [facility] [address] [id number] [place] [address] May, [facility] [address] [id number] [place] [address] May, [facility] [address] [id number] [place] [address] May, [facility] [address] [id number] [place] [address] May, [facility] [address] [id number] [place] [address] May, [facility] [address] [id number] [place] [address] May, [facility] [address] [id number] [place] [address] Mar, [facility] [address] [id number] [place] [address] 09 Mar, 2012 [facility] [address] [id number] [place] [address] Mar, 2012 [facility] [address] [id number] [place] [address] Mar, [facility] [address] [id number] [place] [address] Mar, [facility] [address] [id number] [place] [address] Mar, [facility] [address] [id number] [place] [address] Feb, [facility] [address] [id number] [place] [address] Feb, [facility] [address] [id number] [place] [address] Jan, [facility] [address] [id number] [place] [address] Jan, [facility] [address] [id number] [place] [address] Jan, [facility] [address] [id number] [place] [address] Jan, [facility] [address] [id number] [place] [address] Jan, [facility] [address] [id number] [place] [address] Jan, [facility] [address] [id number] [place] [address] Jan, [facility] [id number] [place] [address] Jan, [facility] [address] [id number] [place] [address] 08 Jan, 2013 [facility] [address] [id number] [place] [address] Jan, [facility] [address] [id number] [place] [address] Dec, [facility] [address] [id number] [place] [address] Nov, [facility] [address] [id number] [place] [address] Nov, [facility] [address] [id number] [place] [address] Nov, [facility] [address] [facility] [id number] [place] [address] Oct, [facility] [address] [id number] [place] [address] Oct, [facility] [address] [id number] [place] [address] August, [facility] [address] [id number] [place] [address] Apr, [facility] [address] [id number] [place] [address] Apr, [facility] [address] [id number] [place] [address] Feb, [facility] [address] [id number] [place] [address] Feb, [facility] [address] [id number] [place] [address] Dec, [facility] [address] [id number] [place] [address] Dec, [facility] [address] [facility] [id number] [place] [address] Oct, [facility] [address] [id number] [place] [address] Oct, [facility] [address] [id number] [place] [address] Oct, [facility] [address] [id number] [place] [address] Jul, IMMUNIZATIONS No Known Immunizations SOCIAL HISTORY [...] hospitalizations for psychosis/mental illness, last one in [facility] 4 years ago Hospitalization History broken ankle 08/2018
--- OUTSIDE RECORDS SUMMARY | 2019-07-07 04:08 | XMS REPORT ---
Author Author Alayna MONTERROSO Organization [facility] Address [address] [place] [address] Care Team Providers Care Tool Technician Name Role Phone PADMINI MONTERROSO Unavailable PROBLEMS Type Condition ICD9-CM Code BIB09-YJ Code Onset Dates Condition S tatus SNOMED Code Problem Type 2 diabetes mellitus wit hout complication, without long-term current use of insulin E11.9 Active 856411386 Problem Gastroesophageal reflux disease without esophagitis K21.9 Active 850085773 Problem History of lupus Z87.39 Active 312 416372 Problem Schizoaffective disorder, depressive type F25.1 Active 48830637 Problem Seasonal allergic rhinitis due to other allergic trigger J30.89 Active 801846376 Problem DM neuro manif type II E11.49 Active 62729115 Problem Primary insomnia F51.01 Active 397 2004 Problem Diabetic polyneuropathy associated with type 2 d iabetes mellitus E11.42 Active 898928157 Problem Chronic pain syndrome G89.4 Active 176285055 Problem 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, 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 Active 982349834 Problem Morbid obesity due to excess calories E66.01 Active 114063804 Problem OAB (overactive bladder) N32.81 Activ e 363224587 Problem Paranoid schizophrenia F20.0 Active 70298158 Problem Gastroesophageal reflux disease, esophagitis pre sence not specified K21.9 Active 766495194 Problem Tobacco abuse Z72.0 Active 674948 000 Problem Dyslipidemia E78.5 Active 4152430 07 Problem Migraine without aura and without status migrain osus, not intractable G43.009 Active 612970921 Problem Hypothyroidism (acquired) E03.9 Acti ve 274861564 Problem Essential hypertension I10 Active 86492233 Problem Seasonal allergic rhinitis due to pollen J30.1 Active 21521554 Problem Chronic obstructive pulmonary disease, unspecified COPD ty pe J44.9 Active 01755496 Problem COPD exacerbation J44.1 Active 19 7656890 Problem Depression with anxiety F41.8 Active 947742273 Problem Cigarette nicotine dependence without complication F17.210 Active 65401389 Problem Allergic rhinitis, unspecified seasonality, unspecifie d trigger J30.9 Active 26294514 Problem Constipation by delayed colonic transit K59.01 Active 32331225 Problem Constipation, unspecified constipation type K59.00 Active 89143237 Problem Other allergic rhinitis J30.89 Active 603055565 Problem Constipation, unspecified constipation type K59.00 Active 96301913 Problem Menopausal syndrome (hot flashes) N95.1 Active 775249348 Problem Other seasonal allergic rhinitis J30.2 Active 427879631 Problem BMI 31.0-31.9,adult Z68.31 Active 832094472 Problem Vaginal dryness, menopausal N95.1 Ac tive 15942868 Problem Diverticulitis K57.92 Active 01856 6006 Problem BMI 40.0-44.9, adult Z68.41 Active 105294581 ALLERGIES No Information ENCOUNTERS Encounter Location Date Diagnosis [place] [address] [address] 03 Jul, 2019 [facility] [address] [address] 11 May, 2019 [facility] [address] [facility] [id number] [address] [place] [address] Apr, Sore throat J02.9 and Non-re current acute suppurative otitis media of both ears without spontaneous rupture of tympanic membranes H66.003 [facility] [address] [place] [id number] [place] [address] Apr, [facility] [address] [address] Apr, [place] [address] [address] Apr, Schizoaffective disorder, depressive typ e F25.1 [facility] [address] [place] [id number] [place] [address] Mar, Schizoaffective disorder, depressive typ e F25.1 [place] [address] [place] [id number] [place] [address] Mar, [facility] [address] [facility] [id number] [address] [place] [address] Mar, Acute nasopharyngitis J00 [facility] [address] [place] [id number] [place] [address] Mar, [facility] [address] [address] Mar, [facility] [address] [id number] Mar, Caries K02.9 [facility] [address] [id number] Feb, Dental examination Z01.20 and Caries K02 .9 [facility] [address] [place] [id number] [place] [address] Feb, Constipation, unspecified constipation t ype K59.00 ; Acute hemorrhoid K64.9 ; Tobacco abuse Z72.0 ; BMI 40.0-44.9, adult Z68.41 and Dyslipidemia E78.5 [place] [address] [place] [id number] [place] [address] Feb, [facility] [address] [address] Feb, [facility] [address] [address] Feb, Constipation, unspecified constipation t ype K59.00 ; Left lower quadrant abdominal pain R10.32 ; Hypothyroidism (acquired) E03.9 ; Tobacco abuse Z72.0 and BMI 40.0-44.9, adult Z68.41 [place] [address] [address] Feb, [facility] [address] [address] Feb, Chronic obstructive pulmonary disease, u nspecified COPD type J44.9 [place] [address] [address] Jan, [facility] [address] [address] Jan, Paranoid schizophrenia F20.0 [facility] [address] [address] Jan, [place] [address] [address] Jan, [place] [address] [address] Jan, Diverticulitis K57.92 and Diarrhea, unsp ecified type R19.7 [place] [address] [address] 17 Jan, 2019 Paranoid schizophrenia F20.0 and Tobacco abuse Z72.0 [place] [address] [address] 15 Jan, 2019 Paranoid schizophrenia F20.0 [place] [address] [address] 14 Jan, 2019 Tobacco use Z72.0 [place] [address] [address] 14 Jan, 2019 Hypothyroidism (acquired) E03.9 and Type 2 diabetes mellitus without complication, without long-term current use of insulin E11.9 [place] [address] [address] Jan, Paranoid schizophrenia F20.0 [place] [address] [address] 08 Jan, 2019 [place] [address] [address] 04 Jan, 2019 Chronic obstructive pulmonary disease, u nspecified COPD type J44.9 [place] [address] [address] Dec, [place] [address] [place] [address] Dec, Schizoaffective disorder, depressive typ e F25.1 [place] [address] [address] Dec, [facility] [address] [address] Dec, [facility] [address] [address] Dec, Type 2 diabetes mellitus with diabetic [...] and Encounter for immunization Z23 [place] [address] [address] Dec, Encounter for immunization Z23 [place] [address] [address] Dec, [place] [address] [address] Dec, [place] [address] [address] Dec, [place] [address] [address] Dec, [facility] [address] [address] Dec, [place] [address] [address] Dec, [facility] [address] [address] Nov, Paranoid schizophrenia F20.0 [place] [address] [address] Nov, [facility] [address] [address] Nov, [facility] [address] [address] Nov, [facility] [address] [address] Nov, Encounter for comprehensive diabetic monique t examination, type 2 diabetes mellitus E11.9 and Morbid obesity E66.01 [facility] [address] [address] Nov, [facility] [address] [address] Nov, [facility] [address] [address] Nov, [facility] [address] [address] Nov, Schizoaffective disorder, depressive typ e F25.1 [facility] [address] [address] Nov, Constipation by delayed colonic transit K59.01 [facility] [address] [address] Oct, [facility] [address] [address] Oct, [facility] [address] [address] Oct, [facility] [address] [address] Oct, Chronic obstructive pulmonary disease, u nspecified COPD type J44.9 [facility] [address] [address] Oct, [facility] [address] [address] Sep, Paranoid schizophrenia F20.0 [facility] [address] [address] Sep, [facility] [address] [address] Sep, [facility] [address] [address] Sep, Encounter for immunization Z23 [facility] [address] [address] Sep, [facility] [address] [address] Sep, Closed fracture of right ankle, sequela S82.891S ; Morbid obesity E66.01 and Heat rash L74.0 [facility] [address] [address] Sep, Schizoaffective disorder, depressive typ e F25.1 [facility] [address] [address] Sep, [facility] [address] [address] Sep, [facility] [address] [address] Sep, [facility] [address] [address] Sep, [facility] [address] [address] Sep, [facility] [address] [address] Sep, [facility] [address] [address] Sep, [facility] [address] [address] 05 Sep, 2018 [facility] [address] [address] Sep, [facility] [address] [address] August, Paranoid schizophrenia F20.0 [facility] [address] [place] [id number] [place] [address] August, [facility] [address] [address] August, [facility] [address] [address] August, [facility] [address] [address] August, Type 2 diabetes mellitus without complic ation, without long-term current use of insulin E11.9 ; Closed fracture of right ankle, initial encounter S82.891A ; Constipation by delayed colonic transit K59.01 ; Osteoporosis with pathological fracture, initial encounter M80.00XA ; Encounter for immunization Z23 and Morbid obesity E66.01 [facility] [address] [address] August, [facility] [address] [address] August, [facility] [address] [address] August, Acquired deformity of musculoskeletal sy stem, unspecified M95.9 [facility] [address] [place] [id number] [place] [address] August, Paranoid schizophrenia F20.0 [facility] [address] [id number] [place] [address] August, [facility] [address] [place] [id number] [place] [address] Jul, [facility] [address] [address] Jul, Diabetic polyneuropathy associated with type 2 diabetes mellitus E11.42 ; Paranoid schizophrenia F20.0 ; Preoperative clearance Z01.818 and Morbid obesity E66.01 [facility] [address] [address] Jul, Paranoid schizophrenia F20.0 [place] [address] [address] Jul, [place] [address] [address] Jul, [place] [address] [address] Jul, Cigarette nicotine dependence without co mplication F17.210 [place] [address] [address] Jul, Type 2 diabetes mellitus without complic ation, without long-term current use of insulin E11.9 and Hypothyroidism (acquired) E03.9 [place] [address] [address] Jul, Encounter for Medicare annual wellness e xam Z00.00 ; Morbid obesity due to excess calories E66.01 ; Diabetic polyneuropathy associated with type 2 diabetes mellitus E11.42 ; Chronic obstructive pulmonary disease, unspecified COPD type J44.9 ; Schizoaffective disorder, depressive type F25.1 ; Hypothyroidism (acquired) E03.9 and Morbid obesity E66.01 [place] [address] [address] Jun, Gastroesophageal reflux disease without esophagitis K21.9 [place] [address] [address] Jun, Paranoid schizophrenia F20.0 [place] [address] [address] Jun, Schizoaffective disorder, depressive typ e F25.1 [place] [address] [address] Jun, [address] [address] Jun, Schizoaffective disorder, depressive typ e F25.1 [place] [address] [address] Jun, Cigarette nicotine dependence without co mplication F17.210 [place] [address] [address] Jun, Type 2 diabetes mellitus without complic ation, without long-term current use of insulin E11.9 [place] [address] [address] 15 Jun, 2018 [place] [address] [address] Jun, [place] [address] [address] Jun, [place] [address] [address] Jun, [place] [address] [address] Jun, [place] [address] [address] Jun, Paranoid schizophrenia F20.0 ; Type 2 di abetes mellitus without complication, without long-term current use of insulin E11.9 ; Hypothyroidism (acquired) E03.9 and Morbid obesity E66.01 [place] [address] [address] 28 May, 2018 Paranoid schizophrenia F20.0 [place] [address] [address] May, Hypothyroidism (acquired) E03.9 and Dysl ipidemia E78.5 [place] [address] [address] May, Cigarette nicotine dependence without co mplication F17.210 [place] [address] [address] 18 May, 2018 [place] [address] [address] 14 May, 2018 Type 2 diabetes mellitus without complic ation, without long-term current use of insulin E11.9 ; Essential hypertension I10 ; Hypothyroidism (acquired) E03.9 and Dyslipidemia E78.5 [facility] [address] [address] May, [facility] [address] [address] May, Schizoaffective disorder, depressive typ e F25.1 [place] [address] [address] May, Paranoid schizophrenia F20.0 [place] [address] [address] May, [facility] [address] [place] [address] 07 May, 19 [place] [address] [address] May, [place] [address] [address] May, Type 2 diabetes mellitus without complic ation, without long-term current use of insulin E11.9 ; Essential hypertension I10 ; Hypothyroidism (acquired) E03.9 and Dyslipidemia E78.5 [place] [address] [address] May, [facility] [address] [address] May, Acute nasopharyngitis J00 [facility] [address] [facility] [id number] [address] [address] May, Allergic rhinitis, unspecifi ed seasonality, unspecified trigger J30.9 [place] [address] [address] May, [facility] [address] [address] Apr, Schizoaffective disorder, depressive typ e F25.1 [place] [address] [address] Apr, [place] [address] [address] Apr, Cigarette nicotine dependence without co mplication F17.210 [place] [address] [address] Apr, [place] [address] [address] Apr, Cigarette nicotine dependence without co mplication F17.210 [place] [address] [address] Apr, [place] [address] [address] Apr, Migraine without aura and without status migrainosus, not intractable G43.009 [place] [address] [address] Apr, Migraine without aura and without status migrainosus, not intractable G43.009 [place] [address] [address] Mar, Schizoaffective disorder, depressive typ e F25.1 ; BMI 45.0-49.9, adult Z68.42 and BMI 40.0-44.9, adult Z68.41 [place] [address] [address] Mar, Primary insomnia F51.01 [place] [address] [address] Mar, [place] [address] [address] 14 Feb, 2018 Primary insomnia F51.01 [place] [address] [address] Feb, [place] [address] [address] Jan, Schizoaffective disorder, depressive typ e F25.1 and BMI 45.0-49.9, adult Z68.42 [place] [address] [address] Jan, [place] [address] [address] 16 Jan, 2018 Type 2 diabetes mellitus with diabetic n europathic arthropathy, 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 ; Menopausal syndrome (hot flashes) N95.1 ; BMI 40.0-44.9, adult Z68.41 and Morbid obesity E66.01 [place] [address] [address] Jan, Paranoid schizophrenia F20.0 [place] [address] [address] 08 Jan, 2018 [place] [address] [address] 04 Jan, 2018 Schizoaffective disorder, depressive typ e F25.1 [place] [address] [address] Jan, [place] [address] [address] 02 Jan, 2018 Chronic obstructive pulmonary disease, u nspecified COPD type J44.9 ; BMI 45.0-49.9, adult Z68.42 ; Type 2 diabetes mellitus without complication, without long-term current use of insulin E11.9 ; Hypothyroidism (acquired) E03.9 ; Encounter for immunization Z23 ; Gastroesophageal reflux disease without esophagitis K21.9 ; Primary insomnia F51.01 and Acute nasopharyngitis J00 [place] [address] [address] Dec, [place] [address] [address] Dec, Schizoaffective disorder, depressive typ e F25.1 and BMI 45.0-49.9, adult Z68.42 [place] [address] [address] Dec, [facility] [address] [address] Dec, [facility] [address] [address] Dec, Acute non-recurrent frontal sinusitis J0 1.10 [facility] [address] [address] 18 Dec, 2017 Acute non-recurrent frontal sinusitis J0 1.10 ; Weakness of left leg R29.898 ; At high risk for falls Z91.81 and BMI 45.0-49.9, adult Z68.42 [place] [address] [address] Dec, [facility] [address] [address] Dec, [facility] [address] [address] Dec, Schizoaffective disorder, depressive typ e F25.1 [facility] [address] [facility] [id number] [address] [place] [address] Dec, Acute nasopharyngitis J00 [facility] [address] [address] 05 Dec, 2017 Schizoaffective disorder, depressive typ e F25.1 [facility] [address] [address] Dec, [facility] [address] [address] Nov, Schizoaffective disorder, depressive typ e F25.1 and BMI 45.0-49.9, adult Z68.42 [facility] [address] [address] Nov, [facility] [address] [address] Nov, [place] [address] [address] Nov, Schizoaffective disorder, depressive typ e F25.1 [place] [address] [address] Nov, Well woman exam Z01.419 ; BMI 45.0-49.9, adult Z68.42 ; Screening breast examination Z12.31 and Dietary counseling and surveillance Z71.3 [place] [address] [address] Nov, Paranoid schizophrenia F20.[address] [address] 09 Nov, 2017 Gastroesophageal reflux disease, esophag itis presence not specified K21.[address] [address] Oct, Paranoid schizophrenia F20.0 [place] [id number] [place] [address] Oct, Chronic pain syndrome G89.4 and Schizoaffective disorder, depressive type F25.[address] [address] Oct, Chronic pain syndrome G89.4 and Schizoaf fective disorder, depressive type F25.[address] [address] Oct, Type 2 diabetes mellitus without complic ation, without long-term current use of insulin E11.[address] [address] 12 Oct, 2017 Essential hypertension I10 and DM neuro manif type II E11.[address] [address] Oct, [address] [address] Oct, Schizoaffective disorder, depressive typ e F25.1 and BMI 45.0-49.9, adult Z68.42 [place] [address] [address] Oct, [place] [address] [address] Oct, Paranoid schizophrenia F20.0 [place] [address] [address] Oct, Type 2 diabetes mellitus with diabetic n europathic arthropathy, 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 ; Essential hypertension I10 ; Hypothyroidism (acquired) E03.9 ; Chronic obstructive pulmonary disease, unspecified COPD type J44.9 and Diabetic polyneuropathy associated with type 2 diabetes mellitus E11.42 [place] [address] [address] Sep, Paranoid schizophrenia F20.0 [place] [address] [address] Sep, Paranoid schizophrenia F20.0 and BMI 45. 0-49.9, adult Z68.42 [place] [address] [address] Sep, Schizoaffective disorder, depressive typ e F25.1 [place] [address] [address] Sep, [place] [address] [address] Sep, Paranoid schizophrenia F20.0 [place] [address] [address] Sep, [place] [address] [address] Sep, Hypothyroidism (acquired) E03.9 [place] [address] [address] Sep, [place] [address] [address] August, Schizoaffective disorder, depressive typ e F25.1 [place] [address] [address] August, [facility] [address] [address] August, [facility] [address] [address] August, [place] [address] [address] August, Paranoid schizophrenia F20.[address] [address] August, History of lupus Z87.39 and Chronic pain syndrome G89.4 [place] [address] [address] August, [facility] [address] [facility] [id number] [place] [address] August, Seasonal allergic rhinitis, unspecified trigger J30.2 and BMI 45.0-49.9, adult Z68.[address] [address] Jul, Schizoaffective disorder, depressive typ e F25.1 [place] [address] [address] Jul, [place] [address] [address] Jul, Hypothyroidism (acquired) E03.9 [place] [address] [address] Jul, Chronic obstructive pulmonary disease, u nspecified COPD type J44.9 and Type 2 diabetes mellitus without complication, without long-term current use of insulin E11.9 [place] [address] [place] [id number] [place] [address] Jul, Paranoid schizophrenia F20.0 [place] [address] [address] Jun, Hypothyroidism (acquired) E03.9 and Seas onal allergic rhinitis due to pollen J30.1 [facility] [address] [facility] [id number] [address] [place] [address] Jun, Shortness of breath at rest R06.02 ; COPD exacerbation J44.1 and BMI 45.0-49.9, adult Z68.42 [place] [address] [address] Jun, [facility] [address] [address] Jun, Paranoid schizophrenia F20.0 ; Depressio n with anxiety F41.8 and BMI 45.0-49.9, adult Z68.42 [facility] [address] [address] 20 Jun, 2017 Schizoaffective disorder, depressive typ e F25.1 [facility] [address] [id number] Jun, Dental caries K02.[address] [address] Jun, Paranoid schizophrenia F20.0 [facility] [address] [address] May, Migraine without aura and without status migrainosus, not intractable G43.009 ; DM neuro manif type II E11.49 and Type 2 diabetes mellitus without complication, without long-term current use of insulin E11.9 [facility] [address] [address] May, Migraine without aura and without status migrainosus, not intractable G43.009 [facility] [address] [address] May, Depression with anxiety F41.8 [facility] [address] [id number] May, [facility] [address] [address] May, [facility] [address] [address] May, [facility] [address] [address] May, Hypothyroidism (acquired) E03.9 [place] [address] [address] May, Paranoid schizophrenia F20.0 [place] [address] [address] May, Type 2 diabetes mellitus without complic [...] N32.81 and Controlled substance agreement signed Z79.899 [place] [address] [address] May, Controlled substance agreement signed Z7 9.899 [place] [address] [address] Apr, [facility] [address] [id number] [place] [id number] Apr, Dental examination Z01.20 [place] [address] [address] Apr, Paranoid schizophrenia F20.0 [place] [address] [address] Apr, Hypertension, unspecified type I10 [facility] [address] [address] Apr, Paranoid schizophrenia F20.0 [facility] [address] [address] Apr, [facility] [address] [address] Apr, Tobacco abuse Z72.0 [facility] [address] [address] Apr, [facility] [address] [address] Mar, [facility] [address] [address] Mar, Paranoid schizophrenia F20.0 and BMI 45. 0-49.9, adult Z68.42 [place] [address] [address] Mar, Schizoaffective disorder, depressive typ e F25.1 [place] [address] [address] Mar, [facility] [address] [address] Mar, Hypothyroidism, unspecified type E03.9 [facility] [address] [address] Mar, Schizoaffective disorder, depressive typ e F25.1 [facility] [address] [facility] [id number] [address] [place] [address] Feb, Gastroenteritis K52.9 and BM I 45.0-49.9, adult Z68.42 [facility] [address] [address] Feb, [facility] [address] [address] Feb, [facility] [address] [address] Feb, [place] [address] [address] Feb, [place] [address] [address] Feb, Paranoid schizophrenia F20.[address] [address] Feb, Gastroesophageal reflux disease without esophagitis K21.9 ; Other seasonal allergic rhinitis J30.2 ; Other allergic rhinitis J30.89 ; Tobacco abuse Z72.0 and BMI 40.0-44.9, adult Z68.[address] [address] Feb, Onychomycosis B35.1 ; Callus of foot L84 and DM neuro manif type II E11.[address] [address] Jan, Chronic allergic rhinitis J30.[address] [address] Jan, [address] [address] Jan, Schizoaffective disorder, depressive typ e F25.[address] [address] Jan, [facility] [address] [place], [place] [id number] [address] [place] [address] Jan, Sore throat J02.9 and Season al allergic rhinitis due to other allergic trigger J30.[address] [address] Jan, [address] [address] Jan, [facility] [address] [place], [place] [id number] [address] [place] [address] Jan, Chronic allergic rhinitis J3 0.9 [place] [address] [address] Dec, Paranoid schizophrenia F20.0 ; Primary i nsomnia F51.01 and Schizoaffective disorder, depressive type F25.1 [place] [address] [address] Dec, Chronic pain syndrome G89.4 ; Cervicalgi a of gncbosko-ywayxus-fkndh region M54.2 ; Menopausal syndrome (hot flashes) N95.1 and Encounter for immunization Z23 [place] [address] [address] Dec, [place] [address] [address] Dec, [place] [address] [address] Dec, Paranoid schizophrenia F20.0 [place] [address] [address] Dec, Schizoaffective disorder, depressive typ e F25.1 [place] [address] [address] Nov, Hypothyroidism, unspecified type E03.9 [facility] [address] [facility] [id number] [address] [place] [address] Nov, Acute seasonal allergic rhin itis due to other allergen J30.89 [place] [address] [address] Nov, [place] [address] [address] Nov, Hypothyroidism, unspecified type E03.9 a nd Other elevated white blood cell (WBC) count D72.828 [place] [address] [address] Nov, Schizoaffective disorder, depressive typ e F25.1 [place] [address] [address] Nov, Paranoid schizophrenia F20.0 [place] [address] [address] Nov, Type 2 diabetes mellitus without complic ation, without long-term current use of insulin E11.9 ; Morbid obesity due to excess calories E66.01 and Chronic pain syndrome G89.4 [place] [address] [address] Oct, Paranoid schizophrenia F20.0 [place] [address] [address] Oct, [place] [address] [address] Oct, Schizoaffective disorder, depressive typ e F25.1 [place] [address] [address] Oct, Hypothyroidism, unspecified type E03.9 a nd Other elevated white blood cell (WBC) count D72.828 [place] [address] [address] Oct, Morbid obesity due to excess calories E6 6.01 ; Chronic obstructive pulmonary disease, unspecified COPD type J44.9 ; History of lupus Z87.39 ; Hypothyroidism, unspecified type E03.9 ; Gastroesophageal reflux disease without esophagitis K21.9 ; Primary insomnia F51.01 and Chronic pain syndrome G89.4 [place] [address] [address] Sep, [place] [address] [address] Sep, [place] [address] [address] Sep, [place] [address] [address] Sep, Paranoid schizophrenia F20.0 [place] [address] [address] Sep, [place] [address] [address] Sep, Paranoid schizophrenia F20.0 [facility] [address] [address] Sep, [facility] [address] [address] August, Paranoid schizophrenia F20.0 [place] [address] [address] Jul, [place] [address] [address] Jul, Type 2 diabetes mellitus without complic ation, without long-term current use of insulin E11.9 ; Morbid obesity due to excess calories E66.01 ; Depression with anxiety F41.8 ; Hypothyroidism, unspecified type E03.9 ; Seasonal allergic rhinitis due to other allergic trigger J30.89 ; Pain, dental K08.89 and Gastroesophageal reflux disease without esophagitis K21.9 [facility] [address] [id number] Jul, Dental examination Z01.20 [place] [address] [address] 07 Jul, 2016 Paranoid schizophrenia F20.0 [place] [address] [address] 13 Jun, 2016 Paranoid schizophrenia F20.0 and Depress ion with anxiety F41.8 [place] [address] [address] 10 Jun, 2016 Paranoid schizophrenia F20.0 and Depress ion with anxiety F41.8 [facility] [address] [address] 09 Jun, 2016 [facility] [address] [address] Jun, [facility] [place] [address] [address] [place] [id number] [place] [address] Jun, Seasonal allergic rhinitis d ue to other allergic trigger J30.89 [facility] [place] [address] [address] May, Sore throat J02.9 ; Other vi ral agents as the cause of diseases classified elsewhere B97.89 and Acute upper respiratory infection, unspecified J06.9 [place] [address] [address] May, Paranoid schizophrenia F20.0 and Depress ion with anxiety F41.[address] [address] Apr, Other seasonal allergic rhinitis J30.[address] [address] Apr, Paranoid schizophrenia F20.0 and Depress ion with anxiety F41.8 [place] [address] [address] Apr, Bronchitis J40 and Sore thro at J02.9 [place] [address] [address] Apr, Type 2 diabetes mellitus without complic ation, without long-term current use of insulin E11.9 [place] [address] [address] Apr, Bronchitis J40 [place] [address] [address] Apr, [address] [address] Apr, [address] [address] Mar, Type 2 diabetes mellitus without complic [...] Other seasonal allergic rhinitis J30.2 [place] [address] [address] Mar, Paranoid schizophrenia F20.0 and Depress ion with anxiety F41.8 [place] [address] [address] Feb, [place] [address] [address] Feb, [place] [address] [address] Feb, [place] [address] [address] Feb, [place] [address] [address] Feb, Type 2 diabetes mellitus without complic ation, without long-term current use of insulin E11.9 ; ARIAS on CPAP G47.33 and Preoperative evaluation to rule out surgical contraindication Z01.818 [place] [address] [address] Feb, Paranoid schizophrenia F20.0 and Depress ion with anxiety F41.8 [place] [address] [address] Jan, [place] [address] [address] Jan, Paranoid schizophrenia F20.0 and Depress ion with anxiety F41.8 [place] [address] [address] Jan, [place] [address] [address] Jan, Muscle strain T14.8 [facility] [address] [address] 10 Jan, 2016 Paranoid schizophrenia F20.0 [facility] [address] [address] 07 Jan, 2016 [facility] [address] [address] 05 Jan, 2016 Paranoid schizophrenia F20.0 and Depress ion with anxiety F41.8 [facility] [address] [address] Jan, [facility] [address] [address] Jan, [facility] [address] [address] 28 Dec, 2015 [facility] [address] [address] 23 Dec, 2015 Paranoid schizophrenia F20.0 [facility] [address] [address] 16 Dec, 2015 Paranoid schizophrenia F20.0 and Depress ion with anxiety F41.8 [facility] [address] [address] Nov, [facility] [address] [address] 24 Nov, 2015 Paranoid schizophrenia F20.0 [facility] [address] [address] Nov, Paranoid schizophrenia F20.0 and Depress ion with anxiety F41.8 [facility] [address] [address] 05 Nov, 2015 Type 2 diabetes mellitus without complic ation, without long-term current use of insulin E11.9 ; Paranoid schizophrenia F20.0 ; Chronic obstructive pulmonary disease, unspecified COPD type J44.9 ; Morbid obesity due to excess calories E66.01 and Parkinsonian tremor G20 [place] [address] [address] Nov, [place] [address] [address] Oct, Paranoid schizophrenia F20.0 [place] [address] [address] Oct, Paranoid schizophrenia F20.0 [place] [address] [address] Oct, Paranoid schizophrenia F20.0 and Depress ion with anxiety F41.8 [place] [address] [address] Oct, [place] [address] [address] Oct, Paranoid schizophrenia F20.0 and Depress ion with anxiety F41.8 [place] [address] [address] Oct, Nasal sore J34.89 [place] [address] [address] Oct, Type 2 diabetes mellitus without complic ation, without long-term current use of insulin E11.9 ; Depression with anxiety F41.8 ; Hypothyroidism, unspecified type E03.9 and History of lupus Z87.39 [place] [address] [address] Oct, [place] [address] [address] Oct, Type 2 diabetes mellitus without complic [...] of lupus Z87.39 [facility] [address] [address] Feb, [facility] [address] [address] Jan, [facility] [address] [address] Jan, [facility] [address] [address] Jan, [facility] [address] [address] Dec, [facility] [address] [address] Nov, [facility] [address] [address] Nov, [facility] [address] [address] Oct, [facility] [address] [address] Oct, [facility] [address] [address] Oct, [facility] [address] [address] Sep, Allergic rhinitis 477.9 [facility] [address] [address] Sep, Rhinitis, allergic 477.9 [facility] [address] [address] Sep, Rhinitis, allergic 477.9 [facility] [address] [address] Sep, [facility] [address] [address] August, [facility] [place] [facility] [address] [id number] [place] [address] August, [facility] [place] [facility] [address] [id number] [place] [address] August, [facility] [place] [facility] [address] [id number] [place] [address] Jul, [facility] [place] [facility] [address] [id number] [place] [address] 14 Jul, 2014 [facility] [place] [facility] [address] [id number] [place] [address] Jul, [facility] [place] [facility] [address] [id number] [place] [address] Jun, [facility] [place] [facility] [address] [id number] [place] [address] Jun, [facility] [place] [facility] [address] [id number] [place] [address] Jun, [facility] [place] [facility] [address] [id number] [place] [address] Jun, [facility] [place] [facility] [address] [id number] [place] [address] Jun, [facility] [place] [facility] [address] [id number] [place] [address] Jun, [facility] [place] [facility] [address] [id number] [place] [address] Jun, [facility] [place] [facility] [address] [id number] [place] [address] Jun, [facility] [place] [facility] [address] [id number] [place] [address] May, [facility] [place] [facility] [address] [id number] [place] [address] May, [facility] [place] [facility] [address] [id number] [place] [address] May, [facility] [place] [facility] [address] [id number] [place] [address] May, [facility] [place] [facility] [address] [id number] [place] [address] Apr, [facility] [place] [facility] [address] [id number] [place] [address] Mar, [facility] [place] [facility] [address] [id number] [place] [address] Mar, [facility] [place] [facility] [address] [id number] [place] [address] Mar, [facility] [place] [facility] [address] [id number] [place] [address] Mar, [facility] [place] [facility] [address] [id number] [place] [address] Mar, [facility] [place] [facility] [address] [id number] [place] [address] Mar, [facility] [place] [facility] [address] [id number] [place] [address] Mar, [facility] [place] [facility] [address] [id number] [place] [address] Mar, [facility] [place] [facility] [address] [id number] [place] [address] Mar, [facility] [place] [facility] [address] [id number] [place] [address] Feb, [facility] [place] [facility] [address] [id number] [place] [address] Feb, [facility] [place] [facility] [address] [id number] [place] [address] Feb, [facility] [place] [facility] [address] [id number] [place] [address] Feb, [facility] [place] [facility] [address] [id number] [place] [address] Feb, [facility] [place] [facility] [address] [id number] [place] [address] Feb, [facility] [place] [facility] [address] [id number] [place] [address] Feb, [facility] [place] [facility] [address] [id number] [place] [address] Feb, [facility] [place] [facility] [address] [id number] [place] [address] 23 Jan, 2014 [facility] [place] [facility] [address] [id number] [place] [address] 23 Jan, 2014 [facility] [place] [facility] [address] [id number] [place] [address] 16 Jan, 2014 [facility] [place] [facility] [address] [id number] [place] [address] 16 Jan, 2014 [facility] [place] [facility] [address] [id number] [place] [address] 15 Jan, 2014 [facility] [place] [facility] [address] [id number] [place] [address] 15 Jan, 2014 [facility] [place] [facility] [address] [id number] [place] [address] 14 Jan, 2014 [facility] [place] [facility] [address] [id number] [place] [address] 14 Jan, 2014 [facility] [place] [facility] [address] [id number] [place] [address] 14 Jan, 2014 [facility] [place] [facility] [address] [id number] [place] [address] 14 Jan, 2014 [facility] [place] [facility] [address] [id number] [place] [address] 18 Dec, 2013 [facility] [place] [facility] [address] [id number] [place] [address] 18 Dec, 2013 [facility] [place] [facility] [address] [id number] [place] [address] 10 Dec, 2013 [facility] [place] [facility] [address] [id number] [place] [address] 10 Dec, 2013 [facility] [place] [facility] [address] [id number] [place] [address] Nov, [facility] [place] [facility] [address] [facility] [id number] [facility] [place] [address] Nov, [facility] [place] [facility] [address] [facility] [id number] [facility] [place] [address] Nov, [facility] [place] [facility] [address] [facility] [id number] [place] [address] Nov, [facility] [place] [facility] [address] [facility] [id number] [facility] [place] [address] Nov, [facility] [place] [facility] [address] [facility] [id number] [facility] [place] [address] Oct, [facility] [place] [facility] [address] [facility] [id number] [facility] [place] [address] Oct, [facility] [place] [facility] [address] [id number] [place] [address] Oct, [facility] [place] [facility] [address] [id number] [place] [address] Oct, [facility] [place] [facility] [address] [facility] [id number] [place] [address] Sep, [facility] [place] [facility] [address] [id number] [facility] [place] [address] Sep, [facility] [place] [facility] [address] [id number] [place] [address] Sep, [facility] [place] [facility] [address] [id number] [place] [address] Sep, [facility] [place] [facility] [address] [facility] [id number] [place] [address] Sep, [facility] [place] [facility] [address] [facility] [id number] [place] [address] Sep, [facility] [place] [facility] [address] [facility] [id number] [place] [address] Sep, [facility] [place] [facility] [address] [id number] [place] [address] Sep, [facility] [place] [facility] [address] [facility] [id number] [place] [address] August, [facility] [place] [facility] [address] [id number] [facility] [place] [address] August, [facility] [place] [facility] [address] [facility] [id number] [place] [address] August, [facility] [place] [facility] [address] [id number] [place] [address] August, [facility] [place] [facility] [address] [id number] [place] [address] August, [facility] [place] [facility] [address] [id number] [place] [address] August, [facility] [place] [facility] [address] [id number] [place] [address] August, [facility] [place] [facility] [address] [id number] [place] [address] Jul, [facility] [place] [facility] [address] [id number] [place] [address] Jul, [facility] [place] [facility] [address] [id number] [place] [address] Jul, [facility] [place] [facility] [address] [id number] [place] [address] Jul, [facility] [place] [facility] [address] [id number] [place] [address] Jul, [facility] [place] [facility] [address] [id number] [place] [address] Jul, [facility] [place] [facility] [address] [id number] [place] [address] Jul, [facility] [place] [facility] [address] [id number] [place] [address] Jul, [facility] [place] [facility] [address] [id number] [place] [address] Jul, [facility] [place] [facility] [address] [id number] [place] [address] Jul, [facility] [place] [facility] [address] [id number] [place] [address] Jul, [facility] [place] [facility] [address] [id number] [place] [address] Jul, [facility] [place] [facility] [address] [id number] [place] [address] Jun, [facility] [place] [facility] [address] [id number] [place] [address] Jun, [facility] [place] [facility] [address] [id number] [place] [address] Jun, [facility] [place] [facility] [address] [id number] [place] [address] Jun, [facility] [place] [address] [id number] [place] [address] Jun, [facility] [address] [id number] [place] [address] May, [facility] [address] [id number] [place] [address] May, [facility] [address] [id number] [place] [address] May, [facility] [address] [id number] [place] [address] May, [facility] [address] [id number] [place] [address] May, [facility] [address] [id number] [place] [address] May, [facility] [address] [id number] [place] [address] May, [facility] [address] [id number] [place] [address] May, [facility] [address] [id number] [place] [address] Mar, [facility] [address] [id number] [place] [address] 09 Mar, 2013 [facility] [address] [id number] [place] [address] Mar, [facility] [address] [id number] [place] [address] Mar, [facility] [address] [id number] [place] [address] Mar, [facility] [address] [id number] [place] [address] Mar, [facility] [address] [id number] [place] [address] Feb, [facility] [address] [id number] [place] [address] Feb, [facility] [address] [id number] [place] [address] Jan, [facility] [address] [id number] [place] [address] Jan, [facility] [address] [id number] [place] [address] Jan, [facility] [address] [id number] [place] [address] Jan, [facility] [address] [id number] [place] [address] Jan, [facility] [address] [id number] [place] [address] Jan, [facility] [address] [id number] [place] [address] Jan, [facility] [address] [id number] [place] [address] Jan, [facility] [address] [id number] [place] [address] 08 Jan, 2013 [facility] [address] [id number] [place] [address] Jan, [facility] [address] [id number] [place] [address] 16 Dec, 2012 [facility] [address] [id number] [place] [address] Nov, [facility] [address] [id number] [place] [address] Nov, [facility] [address] [id number] [place] [address] Nov, [facility] [address] [id number] [place] [address] Oct, [facility] [address] [id number] [place] [address] Oct, [facility] [address] [id number] [place] [address] August, [facility] [address] [id number] [place] [address] Apr, [facility] [address] [id number] [place] [address] Apr, [facility] [address] [id number] [place] [address] Feb, [facility] [address] [id number] [place] [address] Feb, [facility] [address] [id number] [place] [address] Dec, [facility] [address] [id number] [place] [address] Dec, [facility] [address] [id number] [place] [address] Oct, [facility] [address] [id number] [place] [address] Oct, [facility] [address] [id number] [place] [address] Oct, [facility] [address] [id number] [place] [address] Jul, IMMUNIZATIONS No Known Immunizations SOCIAL HISTORY Never Assessed REASON FOR VISIT 1 wk f/u DM Ed PLAN OF CARE VITAL SIGNS MEDICATIONS Unknown [...] hospitalizations for psychosis/mental illness, last one in [facility] 4 years ago Hospitalization History broken ankle 08/2018
--- OUTSIDE RECORDS SUMMARY | 2019-07-07 04:09 | XMS REPORT ---
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 Name Role Phone CRUZ ELVER Unavailable PROBLEMS Type Condition ICD9-CM Code BGY58-PR Code Onset Dates Condition S tatus SNOMED Code Problem Type 2 diabetes mellitus wit hout complication, without long-term current use of insulin E11.9 Active 041724335 Problem Gastroesophageal reflux disease without esophagitis K21.9 Active 962270750 Problem History of lupus Z87.39 Active 312 409211 Problem Schizoaffective disorder, depressive type F25.1 Active 74317098 Problem Seasonal allergic rhinitis due to other allergic trigger J30.89 Active 215106596 Problem DM neuro manif type II E11.49 Active 22267656 Problem Primary insomnia F51.01 Active 397 2004 Problem Diabetic polyneuropathy associated with type 2 d iabetes mellitus E11.42 Active 891438305 Problem Chronic pain syndrome G89.4 Active 768477564 Problem 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, 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 Active 845226427 Problem Morbid obesity due to excess calories E66.01 Active 844789927 Problem OAB (overactive bladder) N32.81 Activ e 186469318 Problem Paranoid schizophrenia F20.0 Active 66147210 Problem Gastroesophageal reflux disease, esophagitis pre sence not specified K21.9 Active 011734014 Problem Tobacco abuse Z72.0 Active 825832 000 Problem Dyslipidemia E78.5 Active 1338591 07 Problem Migraine without aura and without status migrain osus, not intractable G43.009 Active 002898710 Problem Hypothyroidism (acquired) E03.9 Acti ve 988900714 Problem Essential hypertension I10 Active 77012714 Problem Seasonal allergic rhinitis due to pollen J30.1 Active 23397244 Problem Chronic obstructive pulmonary disease, unspecified COPD ty pe J44.9 Active 31990531 Problem COPD exacerbation J44.1 Active 19 0544603 Problem Depression with anxiety F41.8 Active 646014555 Problem Cigarette nicotine dependence without complication F17.210 Active 19549136 Problem Allergic rhinitis, unspecified seasonality, unspecifie d trigger J30.9 Active 77881440 Problem Constipation by delayed colonic transit K59.01 Active 05888914 Problem Constipation, unspecified constipation type K59.00 Active 49712428 Problem Other allergic rhinitis J30.89 Active 683103321 Problem Constipation, unspecified constipation type K59.00 Active 64339046 Problem Menopausal syndrome (hot flashes) N95.1 Active 672676170 Problem Other seasonal allergic rhinitis J30.2 Active 148511799 Problem BMI 31.0-31.9,adult Z68.31 Active 891071903 Problem Vaginal dryness, menopausal N95.1 Ac tive 55989039 Problem Diverticulitis K57.92 Active 97618 6006 Problem BMI 40.0-44.9, adult Z68.41 Active 980904097 ALLERGIES No Information ENCOUNTERS Encounter Location Date Diagnosis [place] [id number] [place] [address] 03 Jul, 2019 [facility] [address] [address] 11 May, 2019 [facility] [address] [facility] [id number] [address] [place] [address] 07 Apr, 2019 Sore throat J02.9 and Non-re current acute suppurative otitis media of both ears without spontaneous rupture of tympanic membranes H66.003 [place] [id number] [place] [address] Apr, [facility] [id number] [place] [address] Apr, [place] [address] [address] Apr, Schizoaffective disorder, depressive typ e F25.1 [facility] [address] [id number] [place] [address] Mar, Schizoaffective disorder, depressive typ e F25.1 [place] [address] [address] Mar, [facility] [address] [facility] [id number] [address] [place] [address] Mar, Acute nasopharyngitis J00 [facility] [address] [address] Mar, [facility] [address] [address] Mar, [facility] [address] [id number] Mar, Caries K02.[address] [facility] [address] [id number] Feb, Dental examination Z01.20 and Caries K02 .9 [facility] [address] [address] Feb, Constipation, unspecified constipation t ype K59.00 ; Acute hemorrhoid K64.9 ; Tobacco abuse Z72.0 ; BMI 40.0-44.9, adult Z68.41 and Dyslipidemia E78.5 [facility] [address] [address] Feb, [facility] [address] [address] Feb, [facility] [address] [address] Feb, Constipation, unspecified constipation t ype K59.00 ; Left lower quadrant abdominal pain R10.32 ; Hypothyroidism (acquired) E03.9 ; Tobacco abuse Z72.0 and BMI 40.0-44.9, adult Z68.41 [facility] [address] [address] Feb, [facility] [address] [address] Feb, Chronic obstructive pulmonary disease, u nspecified COPD type J44.9 [facility] [address] [address] Jan, [facility] [address] [address] Jan, Paranoid schizophrenia F20.0 [facility] [address] [address] Jan, [facility] [address] [address] Jan, [facility] [address] [address] Jan, Diverticulitis K57.92 and Diarrhea, unsp ecified type R19.7 [place] [address] [address] 17 Jan, 2019 Paranoid schizophrenia F20.0 and Tobacco abuse Z72.0 [place] [address] [address] 15 Jan, 2019 Paranoid schizophrenia F20.0 [place] [address] [address] 14 Jan, 2019 Tobacco use Z72.0 [place] [address] [address] 14 Jan, 2019 Hypothyroidism (acquired) E03.9 and Type 2 diabetes mellitus without complication, without long-term current use of insulin E11.9 [place] [address] [address] 10 Jan, 2019 Paranoid schizophrenia F20.0 [place] [address] [address] 08 Jan, 2019 [place] [address] [address] 04 Jan, 2019 Chronic obstructive pulmonary disease, u nspecified COPD type J44.9 [place] [address] [address] Dec, [facility] [address] [address] Dec, Schizoaffective disorder, depressive typ e F25.1 [facility] [address] [address] Dec, [facility] [address] [address] Dec, [facility] [address] [address] Dec, Type 2 diabetes mellitus with diabetic [...] abuse Z72.0 and Encounter for immunization Z23 [place] [address] [address] Dec, Encounter for immunization Z23 [place] [address] [address] Dec, [facility] [address] [address] Dec, [facility] [address] [address] Dec, [facility] [address] [address] Dec, [facility] [address] [address] Dec, [facility] [address] [address] Dec, [facility] [address] [address] Nov, Paranoid schizophrenia F20.0 [facility] [address] [address] Nov, [facility] [address] [address] Nov, [facility] [address] [address] Nov, [facility] [address] [address] Nov, Encounter for comprehensive diabetic monique t examination, type 2 diabetes mellitus E11.9 and Morbid obesity E66.01 [facility] [address] [address] Nov, [facility] [address] [address] Nov, [facility] [address] [address] Nov, [facility] [address] [address] Nov, Schizoaffective disorder, depressive typ e F25.1 [facility] [address] [address] Nov, Constipation by delayed colonic transit K59.01 [facility] [address] [address] Oct, [facility] [address] [address] Oct, [facility] [address] [address] Oct, [facility] [address] [address] Oct, Chronic obstructive pulmonary disease, u nspecified COPD type J44.9 [facility] [address] [address] Oct, [facility] [address] [address] Sep, Paranoid schizophrenia F20.0 [facility] [address] [address] Sep, [facility] [address] [address] Sep, [facility] [address] [address] Sep, Encounter for immunization Z23 [facility] [address] [address] Sep, [facility] [address] [address] Sep, Closed fracture of right ankle, sequela S82.891S ; Morbid obesity E66.01 and Heat rash L74.0 [facility] [address] [address] Sep, Schizoaffective disorder, depressive typ e F25.1 [facility] [address] [address] Sep, [facility] [address] [address] Sep, [facility] [address] [address] Sep, [facility] [address] [address] Sep, [facility] [address] [address] Sep, [facility] [address] [address] Sep, [facility] [address] [address] Sep, [facility] [address] [address] 05 Sep, 2018 [facility] [address] [address] Sep, [facility] [address] [address] August, Paranoid schizophrenia F20.0 [facility] [id number] [place] [address] August, [facility] [address] [address] August, [facility] [id number] [place] [address] August, [facility] [address] [address] August, Type 2 diabetes mellitus without complic ation, without long-term current use of insulin E11.9 ; Closed fracture of right ankle, initial encounter S82.891A ; Constipation by delayed colonic transit K59.01 ; Osteoporosis with pathological fracture, initial encounter M80.00XA ; Encounter for immunization Z23 and Morbid obesity E66.01 [facility] [address] [address] August, [facility] [address] [address] August, [facility] [address] [id number] [place] [address] August, Acquired deformity of musculoskeletal sy stem, unspecified M95.9 [facility] [id number] [place] [address] August, Paranoid schizophrenia F20.0 [facility] [address] [id number] [place] [address] August, [facility] [id number] [place] [address] Jul, [facility] [address] [address] Jul, Diabetic polyneuropathy associated with type 2 diabetes mellitus E11.42 ; Paranoid schizophrenia F20.0 ; Preoperative clearance Z01.818 and Morbid obesity E66.01 [facility] [address] [address] Jul, Paranoid schizophrenia F20.0 [place] [address] [address] Jul, [place] [address] [address] Jul, [place] [address] [address] Jul, Cigarette nicotine dependence without co mplication F17.210 [place] [address] [address] Jul, Type 2 diabetes mellitus without complic ation, without long-term current use of insulin E11.9 and Hypothyroidism (acquired) E03.9 [place] [address] [address] Jul, Encounter for Medicare annual wellness e xam Z00.00 ; Morbid obesity due to excess calories E66.01 ; Diabetic polyneuropathy associated with type 2 diabetes mellitus E11.42 ; Chronic obstructive pulmonary disease, unspecified COPD type J44.9 ; Schizoaffective disorder, depressive type F25.1 ; Hypothyroidism (acquired) E03.9 and Morbid obesity E66.01 [place] [address] [address] Jun, Gastroesophageal reflux disease without esophagitis K21.9 [place] [address] [address] Jun, Paranoid schizophrenia F20.0 [place] [address] [address] Jun, Schizoaffective disorder, depressive typ e F25.1 [place] [address] [address] Jun, [address] [address] Jun, Schizoaffective disorder, depressive typ e F25.1 [place] [address] [address] Jun, Cigarette nicotine dependence without co mplication F17.210 [place] [address] [address] Jun, Type 2 diabetes mellitus without complic ation, without long-term current use of insulin E11.9 [place] [address] [address] 15 Jun, 2018 [place] [address] Jun, [place] [address] [address] Jun, [place] [address] [address] Jun, [place] [address] [address] Jun, [place] [address] [address] Jun, Paranoid schizophrenia F20.0 ; Type 2 di abetes mellitus without complication, without long-term current use of insulin E11.9 ; Hypothyroidism (acquired) E03.9 and Morbid obesity E66.01 [place] [address] [address] 28 May, 2018 Paranoid schizophrenia F20.0 [place] [address] [address] May, Hypothyroidism (acquired) E03.9 and Dysl ipidemia E78.5 [place] [address] [address] May, Cigarette nicotine dependence without co mplication F17.210 [place] [address] [address] 18 May, 2018 [place] [address] [address] 14 May, 2018 Type 2 diabetes mellitus without complic ation, without long-term current use of insulin E11.9 ; Essential hypertension I10 ; Hypothyroidism (acquired) E03.9 and Dyslipidemia E78.5 [place] [address] [address] May, [place] [address] [address] May, Schizoaffective disorder, depressive typ e F25.1 [place] [address] [address] May, Paranoid schizophrenia F20.0 [place] [address] [address] May, [facility] [address] [place] [address] 07 May, 19 [place] [address] [address] May, [place] [address] [address] May, Type 2 diabetes mellitus without complic ation, without long-term current use of insulin E11.9 ; Essential hypertension I10 ; Hypothyroidism (acquired) E03.9 and Dyslipidemia E78.5 [place] [address] [address] May, [place] [address] [address] May, Acute nasopharyngitis J00 [facility] [address] [facility] [id number] [address] [place] [address] May, Allergic rhinitis, unspecifi ed seasonality, unspecified trigger J30.9 [place] [address] [address] May, [place] [address] [address] Apr, Schizoaffective disorder, depressive typ e F25.1 [place] [address] [address] Apr, [place] [address] [address] Apr, Cigarette nicotine dependence without co mplication F17.210 [place] [address] [address] Apr, [place] [address] [address] Apr, Cigarette nicotine dependence without co mplication F17.210 [place] [address] [address] Apr, [place] [address] [address] Apr, Migraine without aura and without status migrainosus, not intractable G43.009 [place] [address] [address] Apr, Migraine without aura and without status migrainosus, not intractable G43.009 [place] [address] [address] Mar, Schizoaffective disorder, depressive typ e F25.1 ; BMI 45.0-49.9, adult Z68.42 and BMI 40.0-44.9, adult Z68.41 [place] [address] [address] Mar, Primary insomnia F51.01 [place] [address] [address] Mar, [place] [address] [address] 14 Feb, 2018 Primary insomnia F51.01 [place] [address] [address] Feb, [place] [address] [address] Jan, Schizoaffective disorder, depressive typ e F25.1 and BMI 45.0-49.9, adult Z68.42 [place] [address] [address] Jan, [place] [address] [address] 16 Jan, 2018 Type 2 diabetes mellitus with diabetic n europathic arthropathy, 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 ; Menopausal syndrome (hot flashes) N95.1 ; BMI 40.0-44.9, adult Z68.41 and Morbid obesity E66.01 [place] [address] [address] Jan, Paranoid schizophrenia F20.0 [place] [address] [address] 08 Jan, 2018 [place] [address] [address] 04 Jan, 2018 Schizoaffective disorder, depressive typ e F25.1 [place] [address] [address] Jan, [place] [address] [address] 02 Jan, 2018 Chronic obstructive pulmonary disease, u nspecified COPD type J44.9 ; BMI 45.0-49.9, adult Z68.42 ; Type 2 diabetes mellitus without complication, without long-term current use of insulin E11.9 ; Hypothyroidism (acquired) E03.9 ; Encounter for immunization Z23 ; Gastroesophageal reflux disease without esophagitis K21.9 ; Primary insomnia F51.01 and Acute nasopharyngitis J00 [place] [address] [address] Dec, [place] [address] [address] Dec, Schizoaffective disorder, depressive typ e F25.1 and BMI 45.0-49.9, adult Z68.42 [place] [address] [address] Dec, [facility] [address] [address] Dec, [facility] [address] [address] Dec, Acute non-recurrent frontal sinusitis J0 1.10 [facility] [address] [address] Dec, Acute non-recurrent frontal sinusitis J0 1.10 ; Weakness of left leg R29.898 ; At high risk for falls Z91.81 and BMI 45.0-49.9, adult Z68.42 [facility] [address] [address] Dec, [facility] [address] [address] Dec, [facility] [address] [address] Dec, Schizoaffective disorder, depressive typ e F25.1 [facility] [address] [facility] [id number] [address] [place] [address] Dec, Acute nasopharyngitis J00 [facility] [address] [address] Dec, Schizoaffective disorder, depressive typ e F25.1 [facility] [address] [address] Dec, [facility] [address] [address] Nov, Schizoaffective disorder, depressive typ e F25.1 and BMI 45.0-49.9, adult Z68.42 [facility] [address] [address] Nov, [facility] [address] [address] Nov, [address] [address] Nov, Schizoaffective disorder, depressive typ e F25.[address] [address] Nov, Well woman exam Z01.419 ; BMI 45.0-49.9, adult Z68.42 ; Screening breast examination Z12.31 and Dietary counseling and surveillance Z71.[address] [address] Nov, Paranoid schizophrenia F20.[address] [address] 09 Nov, 2017 Gastroesophageal reflux disease, esophag itis presence not specified K21.[address] [address] Oct, Paranoid schizophrenia F20.0 [facility] [id number] [place] [address] Oct, Chronic pain syndrome G89.4 and Schizoaffective disorder, depressive type F25.[address] [address] Oct, Chronic pain syndrome G89.4 and Schizoaf fective disorder, depressive type F25.[address] [address] Oct, Type 2 diabetes mellitus without complic ation, without long-term current use of insulin E11.[address] [address] 12 Oct, 2017 Essential hypertension I10 and DM neuro manif type II E11.[address] [address] Oct, [address] [address] Oct, Schizoaffective disorder, depressive typ e F25.1 and BMI 45.0-49.9, adult Z68.42 [place] [address] [address] Oct, [place] [address] [address] Oct, Paranoid schizophrenia F20.0 [place] [address] [address] Oct, Type 2 diabetes mellitus with diabetic n europathic arthropathy, without long-term current use of insulin E11.610 ; Essential hypertension I10 ; Hypothyroidism (acquired) E03.9 ; Chronic obstructive pulmonary disease, unspecified COPD type J44.9 and Diabetic polyneuropathy associated with type 2 diabetes mellitus E11.42 [place] [address] [address] Sep, Paranoid schizophrenia F20.0 [place] [address] [address] Sep, Paranoid schizophrenia F20.0 and BMI 45. 0-49.9, adult Z68.42 [place] [address] [address] Sep, Schizoaffective disorder, depressive typ e F25.1 [place] [address] [address] Sep, [place] [address] [address] Sep, Paranoid schizophrenia F20.0 [place] [address] [address] Sep, [place] [address] [address] Sep, Hypothyroidism (acquired) E03.9 [place] [address] [address] Sep, [place] [address] [address] August, Schizoaffective disorder, depressive typ e F25.1 [place] [address] [address] August, [facility] [address] [address] August, [facility] [address] [address] August, [place] [address] [address] August, Paranoid schizophrenia F20.0 [place] [address] [address] August, History of lupus Z87.39 and Chronic pain syndrome G89.4 [place] [address] [address] August, [facility] [address] [facility] [id number] [address] [address] August, Seasonal allergic rhinitis, unspecified trigger J30.2 and BMI 45.0-49.9, adult Z68.42 [place] [address] [address] Jul, Schizoaffective disorder, depressive typ e F25.1 [place] [address] [address] Jul, [place] [address] [address] Jul, Hypothyroidism (acquired) E03.9 [place] [address] [address] Jul, Chronic obstructive pulmonary disease, u nspecified COPD type J44.9 and Type 2 diabetes mellitus without complication, without long-term current use of insulin E11.9 [place] [address] [address] Jul, Paranoid schizophrenia F20.0 [place] [address] [address] Jun, Hypothyroidism (acquired) E03.9 and Seas onal allergic rhinitis due to pollen J30.1 [facility] [address] [facility] [id number] [address] [place] [address] Jun, Shortness of breath at rest R06.02 ; COPD exacerbation J44.1 and BMI 45.0-49.9, adult Z68.42 [facility] [address] [address] Jun, [facility] [address] [address] Jun, Paranoid schizophrenia F20.0 ; Depressio n with anxiety F41.8 and BMI 45.0-49.9, adult Z68.42 [facility] [address] [address] Jun, Schizoaffective disorder, depressive typ e F25.[address] [facility] [address] [id number] Jun, Dental caries K02.9 [place] [address] [address] Jun, Paranoid schizophrenia F20.0 [facility] [address] [address] May, Migraine without aura and without status migrainosus, not intractable G43.009 ; DM neuro manif type II E11.49 and Type 2 diabetes mellitus without complication, without long-term current use of insulin E11.9 [facility] [address] [address] May, Migraine without aura and without status migrainosus, not intractable G43.009 [facility] [address] [address] May, Depression with anxiety F41.[address] [facility] [address] [place] [id number] May, [place] [address] [address] May, [place] [address] [address] May, [facility] [address] [address] May, Hypothyroidism (acquired) E03.9 [place] [address] [address] May, Paranoid schizophrenia F20.0 [place] [address] [address] May, Type 2 diabetes mellitus without complic [...] Controlled substance agreement signed Z79.899 [place] [address] [address] May, Controlled substance agreement signed Z7 9.899 [place] [address] [address] Apr, [facility] [address] [id number] [place] [id number] Apr, Dental examination Z01.20 [place] [address] [address] Apr, Paranoid schizophrenia F20.0 [place] [address] [address] Apr, Hypertension, unspecified type I10 [facility] [address] [place] [id number] [place] [address] Apr, Paranoid schizophrenia F20.0 [facility] [address] [address] Apr, [facility] [address] [address] Apr, Tobacco abuse Z72.0 [facility] [address] [address] Apr, [facility] [address] [address] Mar, [facility] [address] [address] Mar, Paranoid schizophrenia F20.0 and BMI 45. 0-49.9, adult Z68.42 [place] [address] [address] Mar, Schizoaffective disorder, depressive typ e F25.1 [facility] [address] [address] Mar, [facility] [address] [address] Mar, Hypothyroidism, unspecified type E03.9 [facility] [address] [address] Mar, Schizoaffective disorder, depressive typ e F25.1 [facility] [address] [facility] [id number] [address] [place] [address] Feb, Gastroenteritis K52.9 and BM I 45.0-49.9, adult Z68.42 [facility] [address] [address] Feb, [facility] [address] [address] Feb, [facility] [address] [address] Feb, [address] [address] Feb, [address] [address] Feb, Paranoid schizophrenia F20.[address] [address] Feb, Gastroesophageal reflux disease without esophagitis K21.9 ; Other seasonal allergic rhinitis J30.2 ; Other allergic rhinitis J30.89 ; Tobacco abuse Z72.0 and BMI 40.0-44.9, adult Z68.[address] [address] Feb, Onychomycosis B35.1 ; Callus of foot L84 and DM neuro manif type II E11.[address] [address] Jan, Chronic allergic rhinitis J30.[address] [address] Jan, [address] [address] Jan, Schizoaffective disorder, depressive typ e F25.[address] [address] Jan, [facility] [address] [place], [place] [id number] [address] [place] [address] Jan, Sore throat J02.9 and Season al allergic rhinitis due to other allergic trigger J30.[address] [address] Jan, [address] [address] Jan, [facility] [address] [place] [id number] [address] [place] [address] Jan, Chronic allergic rhinitis J3 0.9 [facility] [address] [address] Dec, Paranoid schizophrenia F20.0 ; Primary i nsomnia F51.01 and Schizoaffective disorder, depressive type F25.1 [place] [address] [address] Dec, Chronic pain syndrome G89.4 ; Cervicalgi a of wurfgjug-etbvcyq-cgbzc region M54.2 ; Menopausal syndrome (hot flashes) N95.1 and Encounter for immunization Z23 [place] [address] [address] Dec, [place] [address] [address] Dec, [place] [address] [address] Dec, Paranoid schizophrenia F20.0 [place] [address] [address] Dec, Schizoaffective disorder, depressive typ e F25.1 [place] [address] [address] Nov, Hypothyroidism, unspecified type E03.9 [facility] [address] [facility] [id number] [address] [place] [address] Nov, Acute seasonal allergic rhin itis due to other allergen J30.89 [facility] [address] [address] Nov, [place] [address] [address] Nov, Hypothyroidism, unspecified type E03.9 a nd Other elevated white blood cell (WBC) count D72.828 [place] [address] [address] Nov, Schizoaffective disorder, depressive typ e F25.1 [place] [address] [address] Nov, Paranoid schizophrenia F20.0 [place] [address] [address] Nov, Type 2 diabetes mellitus without complic ation, without long-term current use of insulin E11.9 ; Morbid obesity due to excess calories E66.01 and Chronic pain syndrome G89.4 [place] [address] [address] Oct, Paranoid schizophrenia F20.0 [place] [address] [address] Oct, [place] [address] [address] Oct, Schizoaffective disorder, depressive typ e F25.1 [place] [address] [address] Oct, Hypothyroidism, unspecified type E03.9 a nd Other elevated white blood cell (WBC) count D72.828 [place] [address] [address] Oct, Morbid obesity due to excess calories E6 6.01 ; Chronic obstructive pulmonary disease, unspecified COPD type J44.9 ; History of lupus Z87.39 ; Hypothyroidism, unspecified type E03.9 ; Gastroesophageal reflux disease without esophagitis K21.9 ; Primary insomnia F51.01 and Chronic pain syndrome G89.4 [place] [address] [address] Sep, [place] [address] [address] Sep, [place] [address] [address] Sep, [place] [address] [address] Sep, Paranoid schizophrenia F20.0 [place] [address] [address] Sep, [facility] [address] [address] Sep, Paranoid schizophrenia F20.0 [facility] [address] [address] Sep, [facility] [address] [address] August, Paranoid schizophrenia F20.0 [facility] [address] [address] Jul, [place] [address] [address] Jul, Type 2 diabetes mellitus without complic ation, without long-term current use of insulin E11.9 ; Morbid obesity due to excess calories E66.01 ; Depression with anxiety F41.8 ; Hypothyroidism, unspecified type E03.9 ; Seasonal allergic rhinitis due to other allergic trigger J30.89 ; Pain, dental K08.89 and Gastroesophageal reflux disease without esophagitis K21.[address] [facility] [address] [place] [id number] [place] [id number] Jul, Dental examination Z01.20 [place] [address] [address] 07 Jul, 2016 Paranoid schizophrenia F20.0 [place] [address] [address] 13 Jun, 2016 Paranoid schizophrenia F20.0 and Depress ion with anxiety F41.8 [place] [address] [address] 10 Jun, 2016 Paranoid schizophrenia F20.0 and Depress ion with anxiety F41.8 [facility] [address] [address] 09 Jun, 2016 [facility] [address] [address] 08 Jun, 2016 [facility] [place] [address] [place] [id number] [place] [address] 08 Jun, 2016 Seasonal allergic rhinitis d ue to other allergic trigger J30.[address] [address] 25 May, 2016 Sore throat J02.9 ; Other vi ral agents as the cause of diseases classified elsewhere B97.89 and Acute upper respiratory infection, unspecified J06.[address] [address] 08 May, 2016 Paranoid schizophrenia F20.0 and Depress ion with anxiety F41.[address] [address] Apr, Other seasonal allergic rhinitis J30.[address] [address] Apr, Paranoid schizophrenia F20.0 and Depress ion with anxiety F41.[address] [address] Apr, Bronchitis J40 and Sore thro at J02.[address] [address] Apr, Type 2 diabetes mellitus without complic ation, without long-term current use of insulin E11.[address] [address] Apr, Bronchitis J40 [address] [address] Apr, [address] [address] Apr, [address] [address] Mar, Type 2 diabetes mellitus without complic [...] Other seasonal allergic rhinitis J30.2 [place] [address] [address] 09 Mar, 2016 Paranoid schizophrenia F20.0 and Depress ion with anxiety F41.8 [place] [address] [address] Feb, [place] [address] [address] Feb, [place] [address] [address] Feb, [place] [address] [address] Feb, [place] [address] [address] Feb, Type 2 diabetes mellitus without complic ation, without long-term current use of insulin E11.9 ; ARIAS on CPAP G47.33 and Preoperative evaluation to rule out surgical contraindication Z01.818 [place] [address] [address] Feb, Paranoid schizophrenia F20.0 and Depress ion with anxiety F41.8 [place] [address] [address] Jan, [place] [address] [address] Jan, Paranoid schizophrenia F20.0 and Depress ion with anxiety F41.8 [place] [address] [address] 17 Jan, 2016 [place] [address] [address] Jan, Muscle strain T14.8 [facility] [address] [address] 10 Jan, 2016 Paranoid schizophrenia F20.0 [facility] [address] [address] Jan, [facility] [address] [address] 05 Jan, 2016 Paranoid schizophrenia F20.0 and Depress ion with anxiety F41.8 [facility] [address] [address] Jan, [facility] [address] [address] Jan, [facility] [address] [address] 28 Dec, 2015 [facility] [address] [address] 23 Dec, 2015 Paranoid schizophrenia F20.0 [facility] [address] [address] 16 Dec, 2015 Paranoid schizophrenia F20.0 and Depress ion with anxiety F41.8 [facility] [address] [address] Nov, [facility] [address] [address] Nov, Paranoid schizophrenia F20.0 [facility] [address] [address] Nov, Paranoid schizophrenia F20.0 and Depress ion with anxiety F41.8 [facility] [address] [address] 05 Nov, 2015 Type 2 diabetes mellitus without complic ation, without long-term current use of insulin E11.9 ; Paranoid schizophrenia F20.0 ; Chronic obstructive pulmonary disease, unspecified COPD type J44.9 ; Morbid obesity due to excess calories E66.01 and Parkinsonian tremor G20 [place] [address] [address] Nov, [place] [address] [address] Oct, Paranoid schizophrenia F20.0 [place] [address] [address] Oct, Paranoid schizophrenia F20.0 [place] [address] [address] Oct, Paranoid schizophrenia F20.0 and Depress ion with anxiety F41.8 [place] [address] [address] Oct, [place] [address] [address] Oct, Paranoid schizophrenia F20.0 and Depress ion with anxiety F41.8 [place] [address] [address] Oct, Nasal sore J34.89 [place] [address] [address] Oct, Type 2 diabetes mellitus without complic ation, without long-term current use of insulin E11.9 ; Depression with anxiety F41.8 ; Hypothyroidism, unspecified type E03.9 and History of lupus Z87.39 [place] [address] [address] Oct, [place] [address] [address] Oct, Type 2 diabetes mellitus without complic [...] lupus Z87.39 [facility] [address] [place] [id number] [place] [address] Feb, [facility] [address] [id number] [place] [address] Jan, [facility] [address] [address] Jan, [facility] [address] [address] Jan, [facility] [address] [address] Dec, [facility] [address] [address] Nov, [facility] [address] [address] Nov, [facility] [address] [place] [address] [id number] [place] [address] Oct, [facility] [address] [address] Oct, [facility] [address] [address] Oct, [facility] [address] [address] Sep, Allergic rhinitis 477.9 [facility] [address] [address] Sep, Rhinitis, allergic 477.9 [facility] [address] [address] Sep, Rhinitis, allergic 477.9 [facility] [address] [address] Sep, [facility] [address] [address] August, [facility] [address] [facility] [id number] [place] [address] August, [facility] [address] [id number] [place] [address] August, [facility] [address] [id number] [place] [address] Jul, [facility] [address] [id number] [place] [address] Jul, [facility] [address] [id number] [place] [address] Jul, [facility] [address] [id number] [place] [address] Jun, [facility] [address] [id number] [place] [address] Jun, [facility] [address] [id number] [place] [address] Jun, [facility] [address] [id number] [place] [address] Jun, [facility] [address] [id number] [place] [address] Jun, [facility] [address] [id number] [place] [address] Jun, [facility] [address] [id number] [place] [address] Jun, [facility] [address] [id number] [place] [address] Jun, [facility] [address] [id number] [place] [address] May, [facility] [address] [id number] [place] [address] May, [facility] [address] [id number] [place] [address] May, [facility] [address] [id number] [place] [address] May, [facility] [address] [facility] [id number] [place] [address] Apr, [facility] [address] [facility] [id number] [place] [address] Mar, [facility] [address] [id number] [place] [address] Mar, [facility] [address] [id number] [place] [address] Mar, [facility] [address] [id number] [place] [address] Mar, [facility] [address] [id number] [place] [address] Mar, [facility] [address] [id number] [place] [address] Mar, [facility] [address] [id number] [place] [address] Mar, [facility] [address] [id number] [place] [address] Mar, [facility] [address] [id number] [place] [address] Mar, [facility] [address] [id number] [place] [address] Feb, [facility] [address] [id number] [place] [address] Feb, [facility] [address] [id number] [place] [address] Feb, [facility] [address] [id number] [place] [address] Feb, [facility] [address] [id number] [place] [address] Feb, [facility] [address] [id number] [place] [address] Feb, [facility] [address] [id number] [place] [address] 12 Feb, 2014 [facility] [address] [id number] [place] [address] 12 Feb, 2014 [facility] [address] [id number] [place] [address] 23 Jan, 2014 [facility] [address] [id number] [place] [address] 23 Jan, 2014 [facility] [address] [id number] [place] [address] 16 Jan, 2014 [facility] [address] [id number] [place] [address] 16 Jan, 2014 [facility] [address] [id number] [place] [address] 15 Jan, 2014 [facility] [address] [id number] [place] [address] 15 Jan, 2014 [facility] [address] [id number] [place] [address] 14 Jan, 2014 [facility] [address] [id number] [place] [address] 14 Jan, 2014 [facility] [address] [id number] [place] [address] 14 Jan, 2014 [facility] [address] [id number] [place] [address] 14 Jan, 2014 [facility] [address] [id number] [place] [address] 18 Dec, 2013 [facility] [address] [id number] [place] [address] 18 Dec, 2013 [facility] [address] [id number] [place] [address] 10 Dec, 2013 [facility] [address] [id number] [place] [address] 10 Dec, 2013 [facility] [address] [id number] [place] [address] Nov, [facility] [address] [facility] [id number] [place] [address] Nov, [facility] [address]AM[address] [facility] [id number] [facility] [place] [address] Nov, [facility] [address]MER[address]AM[address] [facility] [id number] [place] [address] Nov, [facility] [address] [facility] [id number] [place] [address] Nov, [facility] [address]MER[address] [facility] [id number] [place] [address] Oct, [facility] [address] [id number] [place] [address] Oct, [facility] [address] [id number] [place] [address] Oct, [facility] [address] [id number] [place] [address] Oct, [facility] [address] [id number] [place] [address] Sep, [facility] [address] [id number] [place] [address] Sep, [facility] [address] [id number] [place] [address] Sep, [facility] [address] [id number] [place] [address] Sep, [facility] [address] [facility] [id number] [place] [address] Sep, [facility] [address] [id number] [place] [address] Sep, [facility] [address] [id number] [place] [address] Sep, [facility] [address] [id number] [place] [address] Sep, [facility] [address] [id number] [facility] [place] [address] August, [facility] [address]AM[address] [facility] [id number] [facility] [place] [address] August, [facility] [place] [facility] [address] [facility] [id number] [facility] [place] [address] August, [facility] [place] [facility] [address] [id number] [facility] [place] [address] August, [facility] [place] [facility] [address] [facility] [id number] [facility] [place] [address] August, [facility] [place] [facility] [address] [facility] [id number] [place] [address] August, [facility] [place] [facility] [address] [id number] [place] [address] August, [facility] [place] [facility] [address] [id number] [facility] [place] [address] Jul, [facility] [place] [facility] [address] [id number] [facility] [place] [address] Jul, [facility] [place] [facility] [address] [facility] [id number] [place] [address] Jul, [facility] [place] [facility] [address] [id number] [place] [address] Jul, [facility] [place] [facility] [address] [id number] [facility] [place] [address] Jul, [facility] [place] [facility] [address] [id number] [facility] [place] [address] Jul, [facility] [place] [facility] [address] [facility] [id number] [place] [address] Jul, [facility] [place] [facility] [address] [id number] [facility] [place] [address] Jul, [facility] [place] [facility] [address] [id number] [facility] [place] [address] Jul, [facility] [place] [facility] [address] [id number] [facility] [place] [address] Jul, [facility] [place] [facility] [address] [id number] [place] [address] Jul, [facility] [place] [facility] [address] [id number] [place] [address] Jul, [facility] [place] [facility] [address] [id number] [place] [address] Jun, [facility] [place] [facility] [address] [id number] [place] [address] Jun, [facility] [place] [facility] [address] [id number] [place] [address] Jun, [facility] [place] [facility] [address] [id number] [place] [address] Jun, [facility] [place] [facility] [address] [id number] [place] [address] Jun, [facility] [place] [facility] [address] [id number] [place] [address] May, [facility] [place] [facility] [address] [id number] [place] [address] May, [facility] [place] [facility] [address] [id number] [place] [address] May, [facility] [place] [facility] [address] [id number] [place] [address] May, [facility] [place] [facility] [address] [id number] [place] [address] May, [facility] [place] [facility] [address] [id number] [place] [address] May, [facility] [place] [facility] [address] [id number] [place] [address] May, [facility] [place] [facility] [address] [id number] [place] [address] May, [facility] [place] [facility] [address] [id number] [place] [address] Mar, [facility] [place] [facility] [address] [id number] [place] [address] Mar, [facility] [place] [facility] [address] [id number] [place] [address] Mar, [facility] [address] [id number] [place] [address] Mar, [facility] [address] [id number] [place] [address] Mar, [facility] [address] [id number] [place] [address] Mar, [facility] [address] [id number] [place] [address] Feb, [facility] [address] [id number] [place] [address] Feb, [facility] [address] [id number] [place] [address] Jan, [facility] [address] [id number] [place] [address] Jan, [facility] [address] [id number] [place] [address] Jan, [facility] [address] [id number] [place] [address] Jan, [facility] [address] [id number] [place] [address] Jan, [facility] [address] [id number] [place] [address] Jan, [facility] [address] [id number] [place] [address] Jan, [facility] [address] [id number] [place] [address] Jan, [facility] [address] [id number] [place] [address] 08 Jan, 2013 [facility] [address] [id number] [place] [address] Jan, [facility] [address] [id number] [place] [address] 16 Dec, 2012 [facility] [address] [id number] [place] [address] Nov, [facility] [address] [id number] [place] [address] Nov, [facility] [address] [id number] [place] [address] Nov, [facility] [address] [id number] [place] [address] Oct, [facility] [address] [id number] [place] [address] Oct, [facility] [address] [id number] [place] [address] August, [facility] [address] [id number] [place] [address] Apr, [facility] [address] [id number] [place] [address] Apr, [facility] [address] [id number] [place] [address] Feb, [facility] [address] [id number] [place] [address] Feb, [facility] [address] [id number] [place] [address] Dec, [facility] [address] [id number] [place] [address] Dec, [facility] [address] [id number] [place] [address] Oct, [facility] [address] [id number] [place] [address] Oct, [facility] [address] [id number] [place] [address] Oct, [facility] [address] [id number] [place] [address] Jul, IMMUNIZATIONS No Known Immunizations SOCIAL HISTORY [...]
--- OUTSIDE RECORDS SUMMARY | 2019-07-07 04:09 | XMS REPORT ---
Author Author Alayna ARROYO Organization [facility] Address [address] [place] [address] Care Team Providers Care Car Pick Up Driver Name Role Phone CRUZ ELVER Unavailable PROBLEMS Type Condition ICD9-CM Code [id number] Code Onset Dates Condition S tatus SNOMED Code Problem Type 2 diabetes mellitus wit hout complication, without long-term current use of insulin E11.9 Active 798005054 Problem Gastroesophageal reflux disease without esophagitis K21.9 Active 701922581 Problem History of lupus Z87.39 Active 312 017772 Problem Schizoaffective disorder, depressive type F25.1 Active 40258299 Problem Seasonal allergic rhinitis due to other allergic trigger J30.89 Active 231015529 Problem DM neuro manif type II E11.49 Active 15165539 Problem Primary insomnia F51.01 Active 397 2004 Problem Diabetic polyneuropathy associated with type 2 d iabetes mellitus E11.42 Active 776489037 Problem Chronic pain syndrome G89.4 Active 604423674 Problem 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, without long-term current use of insulin E11.610 Active 001659485 Problem Morbid obesity due to excess calories E66.01 Active 230670286 Problem OAB (overactive bladder) N32.81 Activ e 657256595 Problem Paranoid schizophrenia F20.0 Active 40341371 Problem Gastroesophageal reflux disease, esophagitis pre sence not specified K21.9 Active 526036556 Problem Tobacco abuse Z72.0 Active 841985 000 Problem Dyslipidemia E78.5 Active 7867647 07 Problem Migraine without aura and without status migrain osus, not intractable G43.009 Active 372802437 Problem Hypothyroidism (acquired) E03.9 Acti ve 491581605 Problem Essential hypertension I10 Active 18966109 Problem Seasonal allergic rhinitis due to pollen J30.1 Active 99090809 Problem Chronic obstructive pulmonary disease, unspecified COPD ty pe J44.9 Active 83554733 Problem COPD exacerbation J44.1 Active 19 4092344 Problem Depression with anxiety F41.8 Active 993228804 Problem Cigarette nicotine dependence without complication F17.210 Active 51047878 Problem Allergic rhinitis, unspecified seasonality, unspecifie d trigger J30.9 Active 73645745 Problem Constipation by delayed colonic transit K59.01 Active 20744005 Problem Constipation, unspecified constipation type K59.00 Active 53112404 Problem Other allergic rhinitis J30.89 Active 238158478 Problem Constipation, unspecified constipation type K59.00 Active 60870042 Problem Menopausal syndrome (hot flashes) N95.1 Active 142376531 Problem Other seasonal allergic rhinitis J30.2 Active 390531347 Problem BMI 31.0-31.9,adult Z68.31 Active 080695973 Problem Vaginal dryness, menopausal N95.1 Ac tive 55912389 Problem Diverticulitis K57.92 Active 95408 6006 Problem BMI 40.0-44.9, adult Z68.41 Active 338935109 ALLERGIES No Information ENCOUNTERS Encounter Location Date Diagnosis [place] [id number] [place] [address] 03 Jul, 2019 [facility] [address] [address] 11 May, 2019 [facility] [address] [facility] [id number] [address] [place] [address] 07 Apr, 2019 Sore throat J02.9 and Non-re current acute suppurative otitis media of both ears without spontaneous rupture of tympanic membranes H66.003 [place] [id number] [place] [address] Apr, [facility] [id number] [place] [address] Apr, [place] [address] [address] Apr, Schizoaffective disorder, depressive typ e F25.1 [facility] [address] [id number] [place] [address] Mar, Schizoaffective disorder, depressive typ e F25.1 [place] [address] [address] Mar, [facility] [address] [facility] [id number] [address] [place] [address] Mar, Acute nasopharyngitis J00 [facility] [address] [address] Mar, [facility] [address] [address] Mar, [facility] [address] [id number] Mar, Caries K02.9 [facility] [address] [id number] Feb, Dental examination Z01.20 and Caries K02 .9 [facility] [address] [address] Feb, Constipation, unspecified constipation t ype K59.00 ; Acute hemorrhoid K64.9 ; Tobacco abuse Z72.0 ; BMI 40.0-44.9, adult Z68.41 and Dyslipidemia E78.5 [facility] [address] [address] Feb, [facility] [address] [address] Feb, [facility] [address] [address] Feb, Constipation, unspecified constipation t ype K59.00 ; Left lower quadrant abdominal pain R10.32 ; Hypothyroidism (acquired) E03.9 ; Tobacco abuse Z72.0 and BMI 40.0-44.9, adult Z68.41 [facility] [address] [address] Feb, [facility] [address] [address] Feb, Chronic obstructive pulmonary disease, u nspecified COPD type J44.9 [facility] [address] [address] Jan, [facility] [address] [address] Jan, Paranoid schizophrenia F20.0 [facility] [address] [address] Jan, [facility] [address] [address] Jan, [facility] [address] [address] Jan, Diverticulitis K57.92 and Diarrhea, unsp ecified type R19.7 [place] [address] [address] 17 Jan, 2019 Paranoid schizophrenia F20.0 and Tobacco abuse Z72.0 [place] [address] [address] 15 Jan, 2019 Paranoid schizophrenia F20.0 [place] [address] [address] 14 Jan, 2019 Tobacco use Z72.0 [place] [address] [address] 14 Jan, 2019 Hypothyroidism (acquired) E03.9 and Type 2 diabetes mellitus without complication, without long-term current use of insulin E11.9 [place] [address] [address] 10 Jan, 2019 Paranoid schizophrenia F20.0 [place] [address] [address] 08 Jan, 2019 [place] [address] [address] 04 Jan, 2019 Chronic obstructive pulmonary disease, u nspecified COPD type J44.9 [place] [address] [address] Dec, [facility] [address] [address] Dec, Schizoaffective disorder, depressive typ e F25.1 [facility] [address] [address] Dec, [facility] [address] [address] Dec, [facility] [address] [address] Dec, Type 2 diabetes mellitus with diabetic [...] abuse Z72.0 and Encounter for immunization Z23 [place] [address] [address] Dec, Encounter for immunization Z23 [place] [address] [address] Dec, [facility] [address] [address] Dec, [facility] [address] [address] Dec, [facility] [address] [address] Dec, [facility] [address] [address] Dec, [facility] [address] [address] Dec, [facility] [address] [address] Nov, Paranoid schizophrenia F20.0 [facility] [address] [address] Nov, [facility] [address] [address] Nov, [facility] [address] [address] Nov, [facility] [address] [address] Nov, Encounter for comprehensive diabetic monique t examination, type 2 diabetes mellitus E11.9 and Morbid obesity E66.01 [facility] [address] [address] Nov, [facility] [address] [address] Nov, [facility] [address] [address] Nov, [facility] [address] [address] Nov, Schizoaffective disorder, depressive typ e F25.1 [facility] [address] [address] Nov, Constipation by delayed colonic transit K59.01 [facility] [address] [address] Oct, [facility] [address] [address] Oct, [facility] [address] [address] Oct, [facility] [address] [address] Oct, Chronic obstructive pulmonary disease, u nspecified COPD type J44.9 [facility] [address] [address] Oct, [facility] [address] [address] Sep, Paranoid schizophrenia F20.0 [facility] [address] [address] Sep, [facility] [address] [address] Sep, [facility] [address] [address] Sep, Encounter for immunization Z23 [facility] [address] [address] Sep, [facility] [address] [address] Sep, Closed fracture of right ankle, sequela S82.891S ; Morbid obesity E66.01 and Heat rash L74.0 [facility] [address] [address] Sep, Schizoaffective disorder, depressive typ e F25.1 [facility] [address] [address] Sep, [facility] [address] [address] Sep, [facility] [address] [address] Sep, [facility] [address] [address] Sep, [facility] [address] [address] Sep, [facility] [address] [address] Sep, [facility] [address] [address] Sep, [facility] [address] [address] 05 Sep, 2018 [facility] [address] [address] Sep, [facility] [address] [address] August, Paranoid schizophrenia F20.0 [facility] [id number] [place] [address] August, [facility] [address] [address] August, [facility] [id number] [place] [address] August, [facility] [address] [address] August, Type 2 diabetes mellitus without complic ation, without long-term current use of insulin E11.9 ; Closed fracture of right ankle, initial encounter S82.891A ; Constipation by delayed colonic transit K59.01 ; Osteoporosis with pathological fracture, initial encounter M80.00XA ; Encounter for immunization Z23 and Morbid obesity E66.01 [facility] [address] [address] August, [facility] [address] [address] August, [facility] [id number] [place] [address] August, Acquired deformity of musculoskeletal sy stem, unspecified M95.9 [facility] [id number] [place] [address] August, Paranoid schizophrenia F20.0 [facility] [address] [id number] [place] [address] August, [facility] [id number] [place] [address] Jul, [facility] [address] [address] Jul, Diabetic polyneuropathy associated with type 2 diabetes mellitus E11.42 ; Paranoid schizophrenia F20.0 ; Preoperative clearance Z01.818 and Morbid obesity E66.01 [facility] [address] [address] Jul, Paranoid schizophrenia F20.0 [place] [address] [address] Jul, [place] [address] [address] Jul, [place] [address] [address] Jul, Cigarette nicotine dependence without co mplication F17.210 [place] [address] [address] Jul, Type 2 diabetes mellitus without complic ation, without long-term current use of insulin E11.9 and Hypothyroidism (acquired) E03.9 [place] [address] [address] Jul, Encounter for Medicare annual wellness e xam Z00.00 ; Morbid obesity due to excess calories E66.01 ; Diabetic polyneuropathy associated with type 2 diabetes mellitus E11.42 ; Chronic obstructive pulmonary disease, unspecified COPD type J44.9 ; Schizoaffective disorder, depressive type F25.1 ; Hypothyroidism (acquired) E03.9 and Morbid obesity E66.01 [place] [address] [address] Jun, Gastroesophageal reflux disease without esophagitis K21.9 [place] [address] [address] Jun, Paranoid schizophrenia F20.0 [place] [address] [address] Jun, Schizoaffective disorder, depressive typ e F25.1 [place] [address] [address] Jun, [address] [address] Jun, Schizoaffective disorder, depressive typ e F25.1 [place] [address] [address] Jun, Cigarette nicotine dependence without co mplication F17.210 [place] [address] [address] Jun, Type 2 diabetes mellitus without complic ation, without long-term current use of insulin E11.9 [place] [address] [address] 15 Jun, 2018 [place] [id number] Jun, [place] [address] [address] Jun, [place] [address] [address] Jun, [place] [address] [address] Jun, [place] [address] [address] Jun, Paranoid schizophrenia F20.0 ; Type 2 di abetes mellitus without complication, without long-term current use of insulin E11.9 ; Hypothyroidism (acquired) E03.9 and Morbid obesity E66.01 [place] [address] [address] 28 May, 2018 Paranoid schizophrenia F20.0 [place] [address] [address] May, Hypothyroidism (acquired) E03.9 and Dysl ipidemia E78.5 [place] [address] [address] May, Cigarette nicotine dependence without co mplication F17.210 [place] [address] [address] 18 May, 2018 [place] [address] [address] 14 May, 2018 Type 2 diabetes mellitus without complic ation, without long-term current use of insulin E11.9 ; Essential hypertension I10 ; Hypothyroidism (acquired) E03.9 and Dyslipidemia E78.5 [place] [address] [address] May, [place] [address] [address] May, Schizoaffective disorder, depressive typ e F25.1 [place] [address] [address] May, Paranoid schizophrenia F20.0 [place] [address] [address] May, [facility] [address] [place] [address] 07 May, 19 [place] [address] [address] May, [place] [address] [address] May, Type 2 diabetes mellitus without complic ation, without long-term current use of insulin E11.9 ; Essential hypertension I10 ; Hypothyroidism (acquired) E03.9 and Dyslipidemia E78.5 [place] [address] [address] May, [place] [address] [address] May, Acute nasopharyngitis J00 [facility] [address] [facility] [id number] [place] [address] May, Allergic rhinitis, unspecifi ed seasonality, unspecified trigger J30.9 [place] [address] [address] May, [place] [address] [address] Apr, Schizoaffective disorder, depressive typ e F25.1 [place] [address] [address] Apr, [place] [address] [address] Apr, Cigarette nicotine dependence without co mplication F17.210 [place] [address] [address] Apr, [place] [address] [address] Apr, Cigarette nicotine dependence without co mplication F17.210 [place] [address] [address] Apr, [place] [address] [address] Apr, Migraine without aura and without status migrainosus, not intractable G43.009 [place] [address] [address] Apr, Migraine without aura and without status migrainosus, not intractable G43.009 [place] [address] [address] Mar, Schizoaffective disorder, depressive typ e F25.1 ; BMI 45.0-49.9, adult Z68.42 and BMI 40.0-44.9, adult Z68.41 [place] [address] [address] Mar, Primary insomnia F51.01 [place] [address] [address] Mar, [place] [address] [address] 14 Feb, 2018 Primary insomnia F51.01 [place] [address] [address] Feb, [place] [address] [address] Jan, Schizoaffective disorder, depressive typ e F25.1 and BMI 45.0-49.9, adult Z68.42 [place] [address] [address] Jan, [place] [address] [address] 16 Jan, 2018 Type 2 diabetes mellitus with diabetic n europathic arthropathy, without long-term current use of insulin E11.610 ; Menopausal syndrome (hot flashes) N95.1 ; BMI 40.0-44.9, adult Z68.41 and Morbid obesity E66.01 [place] [address] [address] Jan, Paranoid schizophrenia F20.0 [place] [address] [address] 08 Jan, 2018 [place] [address] [address] 04 Jan, 2018 Schizoaffective disorder, depressive typ e F25.1 [place] [address] [address] Jan, [place] [address] [address] 02 Jan, 2018 Chronic obstructive pulmonary disease, u nspecified COPD type J44.9 ; BMI 45.0-49.9, adult Z68.42 ; Type 2 diabetes mellitus without complication, without long-term current use of insulin E11.9 ; Hypothyroidism (acquired) E03.9 ; Encounter for immunization Z23 ; Gastroesophageal reflux disease without esophagitis K21.9 ; Primary insomnia F51.01 and Acute nasopharyngitis J00 [place] [address] [address] Dec, [place] [address] [address] Dec, Schizoaffective disorder, depressive typ e F25.1 and BMI 45.0-49.9, adult Z68.42 [place] [address] [address] Dec, [facility] [address] [address] Dec, [facility] [address] [address] Dec, Acute non-recurrent frontal sinusitis J0 1.10 [facility] [address] [address] Dec, Acute non-recurrent frontal sinusitis J0 1.10 ; Weakness of left leg R29.898 ; At high risk for falls Z91.81 and BMI 45.0-49.9, adult Z68.42 [facility] [address] [address] Dec, [facility] [address] [address] Dec, [facility] [address] [address] Dec, Schizoaffective disorder, depressive typ e F25.1 [facility] [address] [facility] [id number] [address] [place] [address] Dec, Acute nasopharyngitis J00 [facility] [address] [address] Dec, Schizoaffective disorder, depressive typ e F25.1 [facility] [address] [address] Dec, [facility] [address] [address] Nov, Schizoaffective disorder, depressive typ e F25.1 and BMI 45.0-49.9, adult Z68.42 [facility] [address] [address] Nov, [facility] [address] [address] Nov, [address] [address] Nov, Schizoaffective disorder, depressive typ e F25.[address] [address] Nov, Well woman exam Z01.419 ; BMI 45.0-49.9, adult Z68.42 ; Screening breast examination Z12.31 and Dietary counseling and surveillance Z71.[address] [address] Nov, Paranoid schizophrenia F20.[address] [address] 09 Nov, 2017 Gastroesophageal reflux disease, esophag itis presence not specified K21.[address] [address] Oct, Paranoid schizophrenia F20.0 [facility] [id number] [place] [address] Oct, Chronic pain syndrome G89.4 and Schizoaffective disorder, depressive type F25.[address] [address] Oct, Chronic pain syndrome G89.4 and Schizoaf fective disorder, depressive type F25.[address] [address] Oct, Type 2 diabetes mellitus without complic ation, without long-term current use of insulin E11.[address] [address] 12 Oct, 2017 Essential hypertension I10 and DM neuro manif type II E11.[address] [address] Oct, [address] [address] Oct, Schizoaffective disorder, depressive typ e F25.1 and BMI 45.0-49.9, adult Z68.42 [place] [address] [address] Oct, [place] [address] [address] Oct, Paranoid schizophrenia F20.0 [place] [address] [address] Oct, Type 2 diabetes mellitus with diabetic n europathic arthropathy, without long-term current use of insulin E11.610 ; Essential hypertension I10 ; Hypothyroidism (acquired) E03.9 ; Chronic obstructive pulmonary disease, unspecified COPD type J44.9 and Diabetic polyneuropathy associated with type 2 diabetes mellitus E11.42 [place] [address] [address] Sep, Paranoid schizophrenia F20.0 [place] [address] [address] Sep, Paranoid schizophrenia F20.0 and BMI 45. 0-49.9, adult Z68.42 [place] [address] [address] Sep, Schizoaffective disorder, depressive typ e F25.1 [place] [address] [address] Sep, [place] [address] [address] Sep, Paranoid schizophrenia F20.0 [place] [address] [address] Sep, [place] [address] [address] Sep, Hypothyroidism (acquired) E03.9 [place] [address] [address] Sep, [place] [address] [address] August, Schizoaffective disorder, depressive typ e F25.1 [place] [address] [address] August, [facility] [address] [address] August, [facility] [address] [address] August, [place] [address] [address] August, Paranoid schizophrenia F20.0 [place] [address] [address] August, History of lupus Z87.39 and Chronic pain syndrome G89.4 [place] [address] [address] August, [facility] [address] [facility] [id number] [place] [address] August, Seasonal allergic rhinitis, unspecified trigger J30.2 and BMI 45.0-49.9, adult Z68.42 [place] [address] [address] Jul, Schizoaffective disorder, depressive typ e F25.1 [place] [address] [address] Jul, [place] [address] [address] Jul, Hypothyroidism (acquired) E03.9 [place] [address] [address] Jul, Chronic obstructive pulmonary disease, u nspecified COPD type J44.9 and Type 2 diabetes mellitus without complication, without long-term current use of insulin E11.9 [place] [address] [address] Jul, Paranoid schizophrenia F20.0 [place] [address] [address] Jun, Hypothyroidism (acquired) E03.9 and Seas onal allergic rhinitis due to pollen J30.1 [facility] [address] [facility] [id number] [address] [place] [address] Jun, Shortness of breath at rest R06.02 ; COPD exacerbation J44.1 and BMI 45.0-49.9, adult Z68.42 [facility] [address] [address] Jun, [facility] [address] [address] Jun, Paranoid schizophrenia F20.0 ; Depressio n with anxiety F41.8 and BMI 45.0-49.9, adult Z68.42 [facility] [address] [address] Jun, Schizoaffective disorder, depressive typ e F25.1 [facility] [address] [id number] Jun, Dental caries K02.9 [place] [address] [address] Jun, Paranoid schizophrenia F20.0 [facility] [address] [address] May, Migraine without aura and without status migrainosus, not intractable G43.009 ; DM neuro manif type II E11.49 and Type 2 diabetes mellitus without complication, without long-term current use of insulin E11.9 [facility] [address] [address] May, Migraine without aura and without status migrainosus, not intractable G43.009 [facility] [address] [address] May, Depression with anxiety F41.8 [facility] [address] [id number] May, [place] [address] [address] May, [place] [address] [address] May, [facility] [address] [address] May, Hypothyroidism (acquired) E03.9 [place] [address] [address] May, Paranoid schizophrenia F20.0 [place] [address] [address] May, Type 2 diabetes mellitus without complic [...] N32.81 and Controlled substance agreement signed Z79.899 [place] [address] [address] May, Controlled substance agreement signed Z7 9.899 [place] [address] [address] Apr, [facility] [address] [id number] [place] [id number] Apr, Dental examination Z01.20 [place] [address] [address] Apr, Paranoid schizophrenia F20.0 [place] [address] [address] Apr, Hypertension, unspecified type I10 [facility] [address] [id number] [place] [address] Apr, Paranoid schizophrenia F20.0 [facility] [address] [address] Apr, [facility] [address] [address] Apr, Tobacco abuse Z72.0 [facility] [address] [address] Apr, [facility] [address] [address] Mar, [facility] [address] [address] Mar, Paranoid schizophrenia F20.0 and BMI 45. 0-49.9, adult Z68.42 [place] [address] [address] Mar, Schizoaffective disorder, depressive typ e F25.1 [facility] [address] [address] Mar, [facility] [address] [address] Mar, Hypothyroidism, unspecified type E03.9 [facility] [address] [address] Mar, Schizoaffective disorder, depressive typ e F25.1 [facility] [address] [facility] [id number] [address] [place] [address] Feb, Gastroenteritis K52.9 and BM I 45.0-49.9, adult Z68.42 [facility] [address] [address] Feb, [facility] [address] [address] Feb, [facility] [address] [address] Feb, [address] [address] Feb, [address] [address] Feb, Paranoid schizophrenia F20.[address] [address] Feb, Gastroesophageal reflux disease without esophagitis K21.9 ; Other seasonal allergic rhinitis J30.2 ; Other allergic rhinitis J30.89 ; Tobacco abuse Z72.0 and BMI 40.0-44.9, adult Z68.[address] [address] Feb, Onychomycosis B35.1 ; Callus of foot L84 and DM neuro manif type II E11.[address] [address] Jan, Chronic allergic rhinitis J30.[address] [address] Jan, [address] [address] Jan, Schizoaffective disorder, depressive typ e F25.[address] [address] Jan, [facility] [address] [place] [id number] [address] [place] [address] Jan, Sore throat J02.9 and Season al allergic rhinitis due to other allergic trigger J30.[address] [address] Jan, [address] [address] Jan, [facility] [address] [place] [id number] [address] [place] [address] Jan, Chronic allergic rhinitis J3 0.9 [facility] [address] [address] Dec, Paranoid schizophrenia F20.0 ; Primary i nsomnia F51.01 and Schizoaffective disorder, depressive type F25.1 [place] [address] [address] Dec, Chronic pain syndrome G89.4 ; Cervicalgi a of xojyznfv-nqyzoht-iehvx region M54.2 ; Menopausal syndrome (hot flashes) N95.1 and Encounter for immunization Z23 [place] [address] [address] Dec, [place] [address] [address] Dec, [place] [address] [address] Dec, Paranoid schizophrenia F20.0 [place] [address] [address] Dec, Schizoaffective disorder, depressive typ e F25.1 [place] [address] [address] Nov, Hypothyroidism, unspecified type E03.9 [facility] [address] [facility] [id number] [address] [place] [address] Nov, Acute seasonal allergic rhin itis due to other allergen J30.89 [facility] [address] [address] Nov, [place] [address] [address] Nov, Hypothyroidism, unspecified type E03.9 a nd Other elevated white blood cell (WBC) count D72.828 [place] [address] [address] Nov, Schizoaffective disorder, depressive typ e F25.1 [place] [address] [address] Nov, Paranoid schizophrenia F20.0 [place] [address] [address] Nov, Type 2 diabetes mellitus without complic ation, without long-term current use of insulin E11.9 ; Morbid obesity due to excess calories E66.01 and Chronic pain syndrome G89.4 [place] [address] [address] Oct, Paranoid schizophrenia F20.0 [place] [address] [address] Oct, [place] [address] [address] Oct, Schizoaffective disorder, depressive typ e F25.1 [place] [address] [address] Oct, Hypothyroidism, unspecified type E03.9 a nd Other elevated white blood cell (WBC) count D72.828 [place] [address] [address] Oct, Morbid obesity due to excess calories E6 6.01 ; Chronic obstructive pulmonary disease, unspecified COPD type J44.9 ; History of lupus Z87.39 ; Hypothyroidism, unspecified type E03.9 ; Gastroesophageal reflux disease without esophagitis K21.9 ; Primary insomnia F51.01 and Chronic pain syndrome G89.4 [place] [address] [address] Sep, [place] [address] [address] Sep, [place] [address] [address] Sep, [place] [address] [address] Sep, Paranoid schizophrenia F20.0 [place] [address] [address] Sep, [facility] [address] [address] Sep, Paranoid schizophrenia F20.0 [facility] [address] [address] Sep, [facility] [address] [address] August, Paranoid schizophrenia F20.0 [facility] [address] [address] Jul, [place] [address] [address] Jul, Type 2 diabetes mellitus without complic ation, without long-term current use of insulin E11.9 ; Morbid obesity due to excess calories E66.01 ; Depression with anxiety F41.8 ; Hypothyroidism, unspecified type E03.9 ; Seasonal allergic rhinitis due to other allergic trigger J30.89 ; Pain, dental K08.89 and Gastroesophageal reflux disease without esophagitis K21.9 [facility] [id number] [place] [id number] Jul, Dental examination Z01.20 [place] [address] [address] 07 Jul, 2016 Paranoid schizophrenia F20.0 [place] [address] [address] 13 Jun, 2016 Paranoid schizophrenia F20.0 and Depress ion with anxiety F41.8 [place] [address] [address] 10 Jun, 2016 Paranoid schizophrenia F20.0 and Depress ion with anxiety F41.8 [facility] [address] [address] 09 Jun, 2016 [facility] [address] [address] 08 Jun, 2016 [facility] [place] [address] [place] [id number] [place] [address] 08 Jun, 2016 Seasonal allergic rhinitis d ue to other allergic trigger J30.[address] [address] 25 May, 2016 Sore throat J02.9 ; Other vi ral agents as the cause of diseases classified elsewhere B97.89 and Acute upper respiratory infection, unspecified J06.[address] [address] 08 May, 2016 Paranoid schizophrenia F20.0 and Depress ion with anxiety F41.[address] [address] Apr, Other seasonal allergic rhinitis J30.[address] [address] Apr, Paranoid schizophrenia F20.0 and Depress ion with anxiety F41.[address] [address] Apr, Bronchitis J40 and Sore thro at J02.[address] [address] Apr, Type 2 diabetes mellitus without complic ation, without long-term current use of insulin E11.[address] [address] Apr, Bronchitis J40 [address] [address] Apr, [address] [address] Apr, [address] [address] Mar, Type 2 diabetes mellitus without complic [...] R60.9 and Other seasonal allergic rhinitis J30.2 [place] [address] [address] 09 Mar, 2016 Paranoid schizophrenia F20.0 and Depress ion with anxiety F41.8 [place] [address] [address] Feb, [place] [address] [address] Feb, [place] [address] [address] Feb, [place] [address] [address] Feb, [place] [address] [address] Feb, Type 2 diabetes mellitus without complic ation, without long-term current use of insulin E11.9 ; ARIAS on CPAP G47.33 and Preoperative evaluation to rule out surgical contraindication Z01.818 [place] [address] [address] Feb, Paranoid schizophrenia F20.0 and Depress ion with anxiety F41.8 [place] [address] [address] Jan, [place] [address] [address] Jan, Paranoid schizophrenia F20.0 and Depress ion with anxiety F41.8 [place] [address] [address] 17 Jan, 2016 [place] [address] [address] Jan, Muscle strain T14.8 [facility] [address] [address] 10 Jan, 2016 Paranoid schizophrenia F20.0 [facility] [address] [address] Jan, [facility] [address] [address] 05 Jan, 2016 Paranoid schizophrenia F20.0 and Depress ion with anxiety F41.8 [facility] [address] [address] Jan, [facility] [address] [address] Jan, [facility] [address] [address] 28 Dec, 2015 [facility] [address] [address] 23 Dec, 2015 Paranoid schizophrenia F20.0 [facility] [address] [address] 16 Dec, 2015 Paranoid schizophrenia F20.0 and Depress ion with anxiety F41.8 [facility] [address] [address] Nov, [facility] [address] [address] Nov, Paranoid schizophrenia F20.0 [facility] [address] [address] Nov, Paranoid schizophrenia F20.0 and Depress ion with anxiety F41.8 [facility] [address] [address] 05 Nov, 2015 Type 2 diabetes mellitus without complic ation, without long-term current use of insulin E11.9 ; Paranoid schizophrenia F20.0 ; Chronic obstructive pulmonary disease, unspecified COPD type J44.9 ; Morbid obesity due to excess calories E66.01 and Parkinsonian tremor G20 [place] [address] [address] Nov, [place] [address] [address] Oct, Paranoid schizophrenia F20.0 [place] [address] [address] Oct, Paranoid schizophrenia F20.0 [place] [address] [address] Oct, Paranoid schizophrenia F20.0 and Depress ion with anxiety F41.8 [place] [address] [address] Oct, [place] [address] [address] Oct, Paranoid schizophrenia F20.0 and Depress ion with anxiety F41.8 [place] [address] [address] Oct, Nasal sore J34.89 [place] [address] [address] Oct, Type 2 diabetes mellitus without complic ation, without long-term current use of insulin E11.9 ; Depression with anxiety F41.8 ; Hypothyroidism, unspecified type E03.9 and History of lupus Z87.39 [place] [address] [address] Oct, [place] [address] [address] Oct, Type 2 diabetes mellitus without complic [...] Z87.39 [facility] [id number] [place] [address] Feb, [facility] [id number] [place] [address] Jan, [facility] [address] [address] Jan, [facility] [address] [address] Jan, [facility] [address] [address] Dec, [facility] [address] [address] Nov, [facility] [address] [address] Nov, [facility] [id number] [place] [address] Oct, [facility] [address] [address] Oct, [facility] [address] [address] Oct, [facility] [address] [address] Sep, Allergic rhinitis 477.9 [facility] [address] [address] Sep, Rhinitis, allergic 477.9 [facility] [address] [address] Sep, Rhinitis, allergic 477.9 [facility] [address] [address] Sep, [facility] [address] [address] August, [facility] [place] [facility] [address] [facility] [id number] [place] [address] August, [facility] [place] [facility] [address] [id number] [place] [address] August, [facility] [place] [facility] [address] [id number] [place] [address] Jul, [facility] [place] [facility] [address] [id number] [place] [address] Jul, [facility] [place] [facility] [address] [id number] [place] [address] Jul, [facility] [place] [facility] [address] [id number] [place] [address] Jun, [facility] [place] [facility] [address] [id number] [place] [address] Jun, [facility] [place] [facility] [address] [id number] [place] [address] Jun, [facility] [place] [facility] [address] [id number] [place] [address] Jun, [facility] [place] [facility] [address] [id number] [place] [address] Jun, [facility] [place] [facility] [address] [id number] [place] [address] Jun, [facility] [place] [facility] [address] [id number] [place] [address] Jun, [facility] [place] [facility] [address] [id number] [place] [address] Jun, [facility] [place] [facility] [address] [id number] [place] [address] May, [facility] [place] [facility] [address] [id number] [place] [address] May, [facility] [place] [facility] [address] [id number] [place] [address] May, [facility] [place] [facility] [address] [id number] [place] [address] May, [facility] [place] [facility] [address] [facility] [id number] [place] [address] Apr, [facility] [place] [facility] [address] [facility] [id number] [place] [address] Mar, [facility] [place] [facility] [address] [id number] [place] [address] Mar, [facility] [place] [facility] [address] [id number] [place] [address] Mar, [facility] [place] [facility] [address] [id number] [place] [address] Mar, [facility] [place] [facility] [address] [id number] [place] [address] Mar, [facility] [place] [facility] [address] [id number] [place] [address] Mar, [facility] [place] [facility] [address] [id number] [place] [address] Mar, [facility] [place] [facility] [address] [id number] [place] [address] Mar, [facility] [place] [facility] [address] [id number] [place] [address] Mar, [facility] [place] [facility] [address] [id number] [place] [address] Feb, [facility] [place] [facility] [address] [id number] [place] [address] Feb, [facility] [place] [facility] [address] [id number] [place] [address] Feb, [facility] [place] [facility] [address] [id number] [place] [address] Feb, [facility] [place] [facility] [address] [id number] [place] [address] Feb, [facility] [place] [facility] [address] [id number] [place] [address] Feb, [facility] [place] [facility] [address] [id number] [place] [address] 12 Feb, 2014 [facility] [place] [facility] [address] [id number] [place] [address] 12 Feb, 2014 [facility] [place] [facility] [address] [id number] [place] [address] 23 Jan, 2014 [facility] [place] [facility] [address] [id number] [place] [address] 23 Jan, 2014 [facility] [place] [facility] [address] [id number] [place] [address] 16 Jan, 2014 [facility] [place] [facility] [address] [id number] [place] [address] 16 Jan, 2014 [facility] [place] [facility] [address] [id number] [place] [address] 15 Jan, 2014 [facility] [place] [facility] [address] [id number] [place] [address] 15 Jan, 2014 [facility] [place] [facility] [address] [id number] [place] [address] 14 Jan, 2014 [facility] [place] [facility] [address] [id number] [place] [address] 14 Jan, 2014 [facility] [place] [facility] [address] [id number] [place] [address] 14 Jan, 2014 [facility] [place] [facility] [address] [id number] [place] [address] 14 Jan, 2014 [facility] [place] [facility] [address] [id number] [place] [address] 18 Dec, 2013 [facility] [place] [facility] [address] [id number] [place] [address] 18 Dec, 2013 [facility] [place] [facility] [address] [id number] [place] [address] 10 Dec, 2013 [facility] [place] [facility] [address] [id number] [place] [address] 10 Dec, 2013 [facility] [place] [facility] [address] [id number] [place] [address] Nov, [facility] [place] [facility] [address] [facility] [id number] [place] [address] Nov, [facility] [place] [facility] [address] [facility] [id number] [facility] [facility] [place] [address] Nov, [facility] [place] [facility] [address] [facility] [id number] [place] [address] Nov, [facility] [place] [facility] [address] [facility] [id number] [place] [address] Nov, [facility] [place] [facility] [address] [facility] [id number] [place] [address] Oct, [facility] [place] [facility] [address] [id number] [place] [address] Oct, [facility] [place] [facility] [address] [id number] [place] [address] Oct, [facility] [place] [facility] [address] [id number] [place] [address] Oct, [facility] [place] [facility] [address] [id number] [place] [address] Sep, [facility] [place] [facility] [address] [id number] [place] [address] Sep, [facility] [place] [facility] [address] [id number] [place] [address] Sep, [facility] [place] [facility] [address] [id number] [place] [address] Sep, [facility] [place] [facility] [address] [facility] [id number] [place] [address] Sep, [facility] [place] [facility] [address] [id number] [place] [address] Sep, [facility] [place] [facility] [address] [id number] [place] [address] Sep, [facility] [place] [facility] [address] [id number] [place] [address] Sep, [facility] [place] [facility] [address] [id number] [facility] [facility] [place] [address] August, [facility] [place] [facility] [address] [facility] [id number] [facility] [facility] [place] [address] August, [facility] [place] [facility] [address] [facility] [id number] [facility] [facility] [place] [address] August, [facility] [place] [facility] [address] [id number] [facility] [place] [address] August, [facility] [place] [facility] [address] [facility] [id number] [facility] [place] [address] August, [facility] [place] [facility] [address] [facility] [id number] [place] [address] August, [facility] [place] [facility] [address] [id number] [place] [address] August, [facility] [place] [facility] [address] [id number] [facility] [facility] [place] [address] Jul, [facility] [place] [facility] [address] [id number] [facility] [facility] [place] [address] Jul, [facility] [place] [facility] [address] [facility] [id number] [place] [address] Jul, [facility] [place] [facility] [address] [id number] [place] [address] Jul, [facility] [place] [facility] [address] [id number] [facility] [place] [address] Jul, [facility] [place] [facility] [address] [id number] [facility] [place] [address] Jul, [facility] [place] [facility] [address] [facility] [id number] [place] [address] Jul, [facility] [place] [facility] [address] [id number] [facility] [place] [address] Jul, [facility] [place] [facility] [address] [id number] [facility] [place] [address] Jul, [facility] [place] [facility] [address] [id number] [facility] [place] [address] Jul, [facility] [place] [facility] [address] [id number] [place] [address] Jul, [facility] [place] [facility] [address] [id number] [place] [address] Jul, [facility] [place] [facility] [address] [id number] [place] [address] Jun, [facility] [place] [facility] [address] [id number] [place] [address] Jun, [facility] [place] [facility] [address] [id number] [place] [address] Jun, [facility] [place] [facility] [address] [id number] [place] [address] Jun, [facility] [place] [facility] [address] [id number] [place] [address] Jun, [facility] [place] [facility] [address] [id number] [place] [address] May, [facility] [place] [facility] [address] [id number] [place] [address] May, [facility] [place] [facility] [address] [id number] [place] [address] May, [facility] [place] [facility] [address] [id number] [place] [address] May, [facility] [place] [facility] [address] [id number] [place] [address] May, [facility] [place] [facility] [address] [id number] [place] [address] May, [facility] [place] [facility] [address] [id number] [place] [address] May, [facility] [place] [facility] [address] [id number] [place] [address] May, [facility] [place] [facility] [address] [id number] [place] [address] Mar, [facility] [place] [facility] [address] [id number] [place] [address] Mar, [facility] [place] [facility] [address] [id number] [place] [address] Mar, [facility] [place] [facility] [address] [id number] [place] [address] Mar, [facility] [place] [facility] [address] [id number] [place] [address] Mar, [facility] [place] [facility] [address] [id number] [place] [address] Mar, [facility] [place] [facility] [address] [id number] [place] [address] Feb, [facility] [place] [facility] [address] [id number] [place] [address] Feb, [facility] [place] [facility] [address] [id number] [place] [address] Jan, [facility] [place] [facility] [address] [id number] [place] [address] Jan, [facility] [place] [facility] [address] [id number] [place] [address] Jan, [facility] [place] [facility] [address] [id number] [place] [address] Jan, [facility] [address] [id number] [place] [address] Jan, [facility] [address] [id number] [place] [address] Jan, [facility] [address] [id number] [place] [address] Jan, [facility] [address] [id number] [place] [address] Jan, [facility] [address] [id number] [place] [address] 08 Jan, 2013 [facility] [address] [id number] [place] [address] Jan, [facility] [address] [id number] [place] [address] 16 Dec, 2012 [facility] [address] [id number] [place] [address] Nov, [facility] [address] [id number] [place] [address] Nov, [facility] [address] [id number] [place] [address] Nov, [facility] [address] [id number] [place] [address] Oct, [facility] [address] [id number] [place] [address] Oct, [facility] [address] [id number] [place] [address] August, [facility] [address] [id number] [place] [address] Apr, [facility] [address] [id number] [place] [address] Apr, [facility] [address] [id number] [place] [address] Feb, [facility] [address] [id number] [place] [address] Feb, [facility] [address] [id number] [place] [address] Dec, [facility] [address] [id number] [place] [address] Dec, [facility] [address] [id number] [place] [address] Oct, [facility] [address] [id number] [place] [address] Oct, [facility] [address] [id number] [place] [address] Oct, [facility] [address] [id number] [place] [address] Jul, IMMUNIZATIONS No Known Immunizations SOCIAL HISTORY [...] hospitalizations for psychosis/mental illness, last one in [facility] 4 years ago Hospitalization History broken ankle 08/2018
--- OUTSIDE RECORDS SUMMARY | 2019-07-07 04:10 | XMS REPORT ---
Author Author Alayna ARROYO Organization [facility] Address [address] [place] [address] Care Team Providers Care Switchboard Wirer Name Role Phone CRUZ ELVER Unavailable PROBLEMS Type Condition ICD9-CM Code [id number] Code Onset Dates Condition S tatus SNOMED Code Problem Type 2 diabetes mellitus wit hout complication, without long-term current use of insulin E11.9 Active 274287131 Problem Gastroesophageal reflux disease without esophagitis K21.9 Active 487089297 Problem History of lupus Z87.39 Active 312 658609 Problem Schizoaffective disorder, depressive type F25.1 Active 18837803 Problem Seasonal allergic rhinitis due to other allergic trigger J30.89 Active 422568275 Problem DM neuro manif type II E11.49 Active 09719779 Problem Primary insomnia F51.01 Active 397 2004 Problem Diabetic polyneuropathy associated with type 2 d iabetes mellitus E11.42 Active 112118835 Problem Chronic pain syndrome G89.4 Active 260164144 Problem 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, without long-term current use of insulin E11.610 Active 353644625 Problem Morbid obesity due to excess calories E66.01 Active 511366807 Problem OAB (overactive bladder) N32.81 Activ e 954567786 Problem Paranoid schizophrenia F20.0 Active 49060626 Problem Gastroesophageal reflux disease, esophagitis pre sence not specified K21.9 Active 473857693 Problem Tobacco abuse Z72.0 Active 178852 000 Problem Dyslipidemia E78.5 Active 2243263 07 Problem Migraine without aura and without status migrain osus, not intractable G43.009 Active 981218128 Problem Hypothyroidism (acquired) E03.9 Acti ve 139352106 Problem Essential hypertension I10 Active 95816051 Problem Seasonal allergic rhinitis due to pollen J30.1 Active 69189147 Problem Chronic obstructive pulmonary disease, unspecified COPD ty pe J44.9 Active 10976213 Problem COPD exacerbation J44.1 Active 19 5325555 Problem Depression with anxiety F41.8 Active 985725792 Problem Cigarette nicotine dependence without complication F17.210 Active 62640195 Problem Allergic rhinitis, unspecified seasonality, unspecifie d trigger J30.9 Active 42732067 Problem Constipation by delayed colonic transit K59.01 Active 35937857 Problem Constipation, unspecified constipation type K59.00 Active 12714159 Problem Other allergic rhinitis J30.89 Active 433914941 Problem Constipation, unspecified constipation type K59.00 Active 12772593 Problem Menopausal syndrome (hot flashes) N95.1 Active 896808416 Problem Other seasonal allergic rhinitis J30.2 Active 151596878 Problem BMI 31.0-31.9,adult Z68.31 Active 860607804 Problem Vaginal dryness, menopausal N95.1 Ac tive 37718730 Problem Diverticulitis K57.92 Active 67882 6006 Problem BMI 40.0-44.9, adult Z68.41 Active 523547110 ALLERGIES No Information ENCOUNTERS Encounter Location Date Diagnosis [place] [id number] [place] [address] 03 Jul, 2019 [facility] [address] [address] 11 May, 2019 [facility] [address] [facility] [id number] [address] [place] [address] 07 Apr, 2019 Sore throat J02.9 and Non-re current acute suppurative otitis media of both ears without spontaneous rupture of tympanic membranes H66.003 [place] [id number] [place] [address] Apr, [facility] [id number] [place] [address] Apr, [place] [address] [address] Apr, Schizoaffective disorder, depressive typ e F25.1 [facility] [address] [id number] [place] [address] Mar, Schizoaffective disorder, depressive typ e F25.1 [place] [address] [address] Mar, [facility] [address] [facility] [id number] [address] [place] [address] Mar, Acute nasopharyngitis J00 [facility] [address] [address] Mar, [facility] [address] [address] Mar, [facility] [address] [id number] Mar, Caries K02.9 [facility] [address] [id number] Feb, Dental examination Z01.20 and Caries K02 .9 [facility] [address] [address] Feb, Constipation, unspecified constipation t ype K59.00 ; Acute hemorrhoid K64.9 ; Tobacco abuse Z72.0 ; BMI 40.0-44.9, adult Z68.41 and Dyslipidemia E78.5 [facility] [address] [address] Feb, [facility] [address] [address] Feb, [facility] [address] [address] Feb, Constipation, unspecified constipation t ype K59.00 ; Left lower quadrant abdominal pain R10.32 ; Hypothyroidism (acquired) E03.9 ; Tobacco abuse Z72.0 and BMI 40.0-44.9, adult Z68.41 [facility] [address] [address] Feb, [facility] [address] [address] Feb, Chronic obstructive pulmonary disease, u nspecified COPD type J44.9 [facility] [address] [address] Jan, [facility] [address] [address] Jan, Paranoid schizophrenia F20.0 [facility] [address] [address] Jan, [facility] [address] [address] Jan, [facility] [address] [address] Jan, Diverticulitis K57.92 and Diarrhea, unsp ecified type R19.7 [place] [address] [address] 17 Jan, 2019 Paranoid schizophrenia F20.0 and Tobacco abuse Z72.0 [place] [address] [address] 15 Jan, 2019 Paranoid schizophrenia F20.0 [place] [address] [address] 14 Jan, 2019 Tobacco use Z72.0 [place] [address] [address] 14 Jan, 2019 Hypothyroidism (acquired) E03.9 and Type 2 diabetes mellitus without complication, without long-term current use of insulin E11.9 [place] [address] [address] 10 Jan, 2019 Paranoid schizophrenia F20.0 [place] [address] [address] 08 Jan, 2019 [place] [address] [address] 04 Jan, 2019 Chronic obstructive pulmonary disease, u nspecified COPD type J44.9 [place] [address] [address] Dec, [facility] [address] [address] Dec, Schizoaffective disorder, depressive typ e F25.1 [facility] [address] [address] Dec, [facility] [address] [address] Dec, [facility] [address] [address] Dec, Type 2 diabetes mellitus with diabetic [...] abuse Z72.0 and Encounter for immunization Z23 [place] [address] [address] Dec, Encounter for immunization Z23 [place] [address] [address] Dec, [facility] [address] [address] Dec, [facility] [address] [address] Dec, [facility] [address] [address] Dec, [facility] [address] [address] Dec, [facility] [address] [address] Dec, [facility] [address] [address] Nov, Paranoid schizophrenia F20.0 [facility] [address] [address] Nov, [facility] [address] [address] Nov, [facility] [address] [address] Nov, [facility] [address] [address] Nov, Encounter for comprehensive diabetic monique t examination, type 2 diabetes mellitus E11.9 and Morbid obesity E66.01 [facility] [address] [address] Nov, [facility] [address] [address] Nov, [facility] [address] [address] Nov, [facility] [address] [address] Nov, Schizoaffective disorder, depressive typ e F25.1 [facility] [address] [address] Nov, Constipation by delayed colonic transit K59.01 [facility] [address] [address] Oct, [facility] [address] [address] Oct, [facility] [address] [address] Oct, [facility] [address] [address] Oct, Chronic obstructive pulmonary disease, u nspecified COPD type J44.9 [facility] [address] [address] Oct, [facility] [address] [address] Sep, Paranoid schizophrenia F20.0 [facility] [address] [address] Sep, [facility] [address] [address] Sep, [facility] [address] [address] Sep, Encounter for immunization Z23 [facility] [address] [address] Sep, Closed fracture of right ankle, sequela S82.891S ; Morbid obesity E66.01 and Heat rash L74.0 [facility] [address] [address] Sep, [facility] [address] [address] Sep, Schizoaffective disorder, depressive typ e F25.1 [facility] [address] [address] Sep, [facility] [address] [address] Sep, [facility] [address] [address] Sep, [facility] [address] [address] Sep, [facility] [address] [address] Sep, [facility] [address] [address] Sep, [facility] [address] [address] Sep, [facility] [address] [address] 05 Sep, 2018 [facility] [address] [address] Sep, [facility] [address] [address] August, Paranoid schizophrenia F20.0 [facility] [id number] [place] [address] August, [facility] [address] [address] August, [facility] [id number] [place] [address] August, [facility] [address] [address] August, Type 2 diabetes mellitus without complic ation, without long-term current use of insulin E11.9 ; Closed fracture of right ankle, initial encounter S82.891A ; Constipation by delayed colonic transit K59.01 ; Osteoporosis with pathological fracture, initial encounter M80.00XA ; Encounter for immunization Z23 and Morbid obesity E66.01 [facility] [address] [address] August, [facility] [address] [address] August, [facility] [address] [id number] [place] [address] August, Acquired deformity of musculoskeletal sy stem, unspecified M95.9 [facility] [id number] [place] [address] August, Paranoid schizophrenia F20.0 [facility] [id number] [place] [address] August, [facility] [id number] [place] [address] Jul, [facility] [address] [address] Jul, Diabetic polyneuropathy associated with type 2 diabetes mellitus E11.42 ; Paranoid schizophrenia F20.0 ; Preoperative clearance Z01.818 and Morbid obesity E66.01 [facility] [address] [address] Jul, Paranoid schizophrenia F20.0 [place] [address] [address] Jul, [place] [address] [address] Jul, [place] [address] [address] Jul, Cigarette nicotine dependence without co mplication F17.210 [place] [address] [address] Jul, Type 2 diabetes mellitus without complic ation, without long-term current use of insulin E11.9 and Hypothyroidism (acquired) E03.9 [place] [address] [address] Jul, Encounter for Medicare annual wellness e xam Z00.00 ; Morbid obesity due to excess calories E66.01 ; Diabetic polyneuropathy associated with type 2 diabetes mellitus E11.42 ; Chronic obstructive pulmonary disease, unspecified COPD type J44.9 ; Schizoaffective disorder, depressive type F25.1 ; Hypothyroidism (acquired) E03.9 and Morbid obesity E66.01 [place] [address] [address] Jun, Gastroesophageal reflux disease without esophagitis K21.9 [place] [address] [address] Jun, Paranoid schizophrenia F20.0 [place] [address] [address] Jun, Schizoaffective disorder, depressive typ e F25.1 [place] [address] [address] Jun, [address] [address] Jun, Schizoaffective disorder, depressive typ e F25.1 [place] [address] [address] Jun, Cigarette nicotine dependence without co mplication F17.210 [place] [address] [address] Jun, Type 2 diabetes mellitus without complic ation, without long-term current use of insulin E11.9 [place] [address] [address] 15 Jun, 2018 [place] [address] [id number] Jun, [place] [address] [address] Jun, [place] [address] [address] Jun, [place] [address] [address] Jun, [place] [address] [address] Jun, Paranoid schizophrenia F20.0 ; Type 2 di abetes mellitus without complication, without long-term current use of insulin E11.9 ; Hypothyroidism (acquired) E03.9 and Morbid obesity E66.01 [place] [address] [address] 28 May, 2018 Paranoid schizophrenia F20.0 [place] [address] [address] May, Hypothyroidism (acquired) E03.9 and Dysl ipidemia E78.5 [place] [address] [address] May, Cigarette nicotine dependence without co mplication F17.210 [place] [address] [address] 18 May, 2018 [place] [address] [address] 14 May, 2018 Type 2 diabetes mellitus without complic ation, without long-term current use of insulin E11.9 ; Essential hypertension I10 ; Hypothyroidism (acquired) E03.9 and Dyslipidemia E78.5 [place] [address] [address] May, [place] [address] [address] May, Schizoaffective disorder, depressive typ e F25.1 [place] [address] [address] May, Paranoid schizophrenia F20.0 [place] [address] [address] May, [facility] [address] [place] [address] 07 May, 19 [place] [address] [address] May, [place] [address] [address] May, Type 2 diabetes mellitus without complic ation, without long-term current use of insulin E11.9 ; Essential hypertension I10 ; Hypothyroidism (acquired) E03.9 and Dyslipidemia E78.5 [place] [address] [address] May, [place] [address] [address] May, Acute nasopharyngitis J00 [facility] [address] [facility] [id number] [address] [place] [address] May, Allergic rhinitis, unspecifi ed seasonality, unspecified trigger J30.9 [place] [address] [address] May, [place] [address] [address] Apr, Schizoaffective disorder, depressive typ e F25.1 [place] [address] [address] Apr, [place] [address] [address] Apr, Cigarette nicotine dependence without co mplication F17.210 [place] [address] [address] Apr, [place] [address] [address] Apr, Cigarette nicotine dependence without co mplication F17.210 [place] [address] [address] Apr, [place] [address] [address] Apr, Migraine without aura and without status migrainosus, not intractable G43.009 [place] [address] [address] Apr, Migraine without aura and without status migrainosus, not intractable G43.009 [place] [address] [address] Mar, Schizoaffective disorder, depressive typ e F25.1 ; BMI 45.0-49.9, adult Z68.42 and BMI 40.0-44.9, adult Z68.41 [place] [address] [address] Mar, Primary insomnia F51.01 [place] [address] [address] Mar, [place] [address] [address] 14 Feb, 2018 Primary insomnia F51.01 [place] [address] [address] Feb, [place] [address] [address] Jan, Schizoaffective disorder, depressive typ e F25.1 and BMI 45.0-49.9, adult Z68.42 [place] [address] [address] Jan, [place] [address] [address] 16 Jan, 2018 Type 2 diabetes mellitus with diabetic n europathic arthropathy, without long-term current use of insulin E11.610 ; Menopausal syndrome (hot flashes) N95.1 ; BMI 40.0-44.9, adult Z68.41 and Morbid obesity E66.01 [place] [address] [address] Jan, Paranoid schizophrenia F20.0 [place] [address] [address] 08 Jan, 2018 [place] [address] [address] 04 Jan, 2018 Schizoaffective disorder, depressive typ e F25.1 [place] [address] [address] Jan, [place] [address] [address] 02 Jan, 2018 Chronic obstructive pulmonary disease, u nspecified COPD type J44.9 ; BMI 45.0-49.9, adult Z68.42 ; Type 2 diabetes mellitus without complication, without long-term current use of insulin E11.9 ; Hypothyroidism (acquired) E03.9 ; Encounter for immunization Z23 ; Gastroesophageal reflux disease without esophagitis K21.9 ; Primary insomnia F51.01 and Acute nasopharyngitis J00 [place] [address] [address] Dec, [place] [address] [address] Dec, Schizoaffective disorder, depressive typ e F25.1 and BMI 45.0-49.9, adult Z68.42 [place] [address] [address] Dec, [facility] [address] [address] Dec, [facility] [address] [address] Dec, Acute non-recurrent frontal sinusitis J0 1.10 [facility] [address] [address] Dec, Acute non-recurrent frontal sinusitis J0 1.10 ; Weakness of left leg R29.898 ; At high risk for falls Z91.81 and BMI 45.0-49.9, adult Z68.42 [facility] [address] [address] Dec, [facility] [address] [address] Dec, [facility] [address] [address] Dec, Schizoaffective disorder, depressive typ e F25.1 [facility] [address] [facility] [id number] [address] [place] [address] Dec, Acute nasopharyngitis J00 [facility] [address] [address] Dec, Schizoaffective disorder, depressive typ e F25.1 [facility] [address] [address] Dec, [facility] [address] [address] Nov, Schizoaffective disorder, depressive typ e F25.1 and BMI 45.0-49.9, adult Z68.42 [facility] [address] [address] Nov, [facility] [address] [address] Nov, [address] [address] Nov, Schizoaffective disorder, depressive typ e F25.[address] [address] Nov, Well woman exam Z01.419 ; BMI 45.0-49.9, adult Z68.42 ; Screening breast examination Z12.31 and Dietary counseling and surveillance Z71.[address] [address] Nov, Paranoid schizophrenia F20.[address] [address] 09 Nov, 2017 Gastroesophageal reflux disease, esophag itis presence not specified K21.[address] [address] Oct, Paranoid schizophrenia F20.[address] [facility] [id number] [place] [address] Oct, Chronic pain syndrome G89.4 and Schizoaffective disorder, depressive type F25.[address] [address] Oct, Chronic pain syndrome G89.4 and Schizoaf fective disorder, depressive type F25.[address] [address] Oct, Type 2 diabetes mellitus without complic ation, without long-term current use of insulin E11.[address] [address] 12 Oct, 2017 Essential hypertension I10 and DM neuro manif type II E11.[address] [address] Oct, [address] [address] Oct, Schizoaffective disorder, depressive typ e F25.1 and BMI 45.0-49.9, adult Z68.42 [place] [address] [address] Oct, [place] [address] [address] Oct, Paranoid schizophrenia F20.0 [place] [address] [address] Oct, Type 2 diabetes mellitus with diabetic n europathic arthropathy, without long-term current use of insulin E11.610 ; Essential hypertension I10 ; Hypothyroidism (acquired) E03.9 ; Chronic obstructive pulmonary disease, unspecified COPD type J44.9 and Diabetic polyneuropathy associated with type 2 diabetes mellitus E11.42 [place] [address] [address] Sep, Paranoid schizophrenia F20.0 [place] [address] [address] Sep, Paranoid schizophrenia F20.0 and BMI 45. 0-49.9, adult Z68.42 [place] [address] [address] Sep, Schizoaffective disorder, depressive typ e F25.1 [place] [address] [address] Sep, [place] [address] [address] Sep, Paranoid schizophrenia F20.0 [place] [address] [address] Sep, [place] [address] [address] Sep, Hypothyroidism (acquired) E03.9 [place] [address] [address] Sep, [place] [address] [address] August, Schizoaffective disorder, depressive typ e F25.1 [place] [address] [address] August, [facility] [address] [address] August, [facility] [address] [address] August, [place] [address] [address] August, Paranoid schizophrenia F20.0 [place] [address] [address] August, History of lupus Z87.39 and Chronic pain syndrome G89.4 [place] [address] [address] August, [facility] [address] [facility] [id number] [address] [address] August, Seasonal allergic rhinitis, unspecified trigger J30.2 and BMI 45.0-49.9, adult Z68.42 [place] [address] [address] Jul, Schizoaffective disorder, depressive typ e F25.1 [place] [address] [address] Jul, [place] [address] [address] Jul, Hypothyroidism (acquired) E03.9 [place] [address] [address] Jul, Chronic obstructive pulmonary disease, u nspecified COPD type J44.9 and Type 2 diabetes mellitus without complication, without long-term current use of insulin E11.9 [place] [address] [address] Jul, Paranoid schizophrenia F20.0 [place] [address] [address] Jun, Hypothyroidism (acquired) E03.9 and Seas onal allergic rhinitis due to pollen J30.1 [facility] [address] [facility] [id number] [address] [place] [address] Jun, Shortness of breath at rest R06.02 ; COPD exacerbation J44.1 and BMI 45.0-49.9, adult Z68.42 [facility] [address] [address] Jun, [facility] [address] [address] Jun, Paranoid schizophrenia F20.0 ; Depressio n with anxiety F41.8 and BMI 45.0-49.9, adult Z68.42 [facility] [address] [address] Jun, Schizoaffective disorder, depressive typ e F25.1 [facility] [address] [id number] Jun, Dental caries K02.9 [place] [address] [address] Jun, Paranoid schizophrenia F20.0 [facility] [address] [address] May, Migraine without aura and without status migrainosus, not intractable G43.009 ; DM neuro manif type II E11.49 and Type 2 diabetes mellitus without complication, without long-term current use of insulin E11.9 [facility] [address] [address] May, Migraine without aura and without status migrainosus, not intractable G43.009 [facility] [address] [address] May, Depression with anxiety F41.8 [facility] [address] [place] [id number] May, [place] [address] [address] May, [place] [address] [address] May, [facility] [address] [address] May, Hypothyroidism (acquired) E03.9 [place] [address] [address] May, Paranoid schizophrenia F20.0 [place] [address] [address] May, Type 2 diabetes mellitus without complic [...] N32.81 and Controlled substance agreement signed Z79.899 [place] [address] [address] May, Controlled substance agreement signed Z7 9.899 [place] [address] [address] Apr, [facility] [address] [id number] [place] [id number] Apr, Dental examination Z01.20 [place] [address] [address] Apr, Paranoid schizophrenia F20.0 [place] [address] [address] Apr, Hypertension, unspecified type I10 [facility] [address] [place] [id number] [place] [address] Apr, Paranoid schizophrenia F20.0 [facility] [address] [address] Apr, [facility] [address] [address] Apr, Tobacco abuse Z72.0 [facility] [address] [address] Apr, [facility] [address] [address] Mar, [facility] [address] [address] Mar, Paranoid schizophrenia F20.0 and BMI 45. 0-49.9, adult Z68.42 [place] [address] [address] Mar, Schizoaffective disorder, depressive typ e F25.1 [place] [address] [address] Mar, [place] [address] [address] Mar, Schizoaffective disorder, depressive typ e F25.1 [place] [address] [address] Mar, Hypothyroidism, unspecified type E03.9 [facility] [address] [facility] [id number] [address] [place] [address] Feb, Gastroenteritis K52.9 and BM I 45.0-49.9, adult Z68.42 [facility] [address] [address] Feb, [facility] [address] [address] Feb, [facility] [address] [address] Feb, [address] [address] Feb, [address] [address] Feb, Paranoid schizophrenia F20.[address] [address] Feb, Gastroesophageal reflux disease without esophagitis K21.9 ; Other seasonal allergic rhinitis J30.2 ; Other allergic rhinitis J30.89 ; Tobacco abuse Z72.0 and BMI 40.0-44.9, adult Z68.[address] [address] Feb, Onychomycosis B35.1 ; Callus of foot L84 and DM neuro manif type II E11.[address] [address] Jan, Chronic allergic rhinitis J30.[address] [address] Jan, [address] [address] Jan, Schizoaffective disorder, depressive typ e F25.[address] [address] Jan, [facility] [address] [place] [id number] [address] [place] [address] Jan, Sore throat J02.9 and Season al allergic rhinitis due to other allergic trigger J30.[address] [address] Jan, [address] [address] Jan, [facility] [address] [place] [id number] [address] [place] [address] Jan, Chronic allergic rhinitis J3 0.9 [facility] [address] [address] Dec, Paranoid schizophrenia F20.0 ; Primary i nsomnia F51.01 and Schizoaffective disorder, depressive type F25.1 [place] [address] [address] Dec, Chronic pain syndrome G89.4 ; Cervicalgi a of qlzcnwek-szolgwy-woahr region M54.2 ; Menopausal syndrome (hot flashes) N95.1 and Encounter for immunization Z23 [place] [address] [address] Dec, [place] [address] [address] Dec, [place] [address] [address] Dec, Paranoid schizophrenia F20.0 [place] [address] [address] Dec, Schizoaffective disorder, depressive typ e F25.1 [place] [address] [address] Nov, Hypothyroidism, unspecified type E03.9 [facility] [address] [facility] [id number] [address] [place] [address] Nov, Acute seasonal allergic rhin itis due to other allergen J30.89 [facility] [address] [address] Nov, [place] [address] [address] Nov, Hypothyroidism, unspecified type E03.9 a nd Other elevated white blood cell (WBC) count D72.828 [place] [address] [address] Nov, Schizoaffective disorder, depressive typ e F25.1 [place] [address] [address] Nov, Paranoid schizophrenia F20.0 [place] [address] [address] Nov, Type 2 diabetes mellitus without complic ation, without long-term current use of insulin E11.9 ; Morbid obesity due to excess calories E66.01 and Chronic pain syndrome G89.4 [place] [address] [address] Oct, Paranoid schizophrenia F20.0 [place] [address] [address] Oct, [place] [address] [address] Oct, Schizoaffective disorder, depressive typ e F25.1 [place] [address] [address] Oct, Hypothyroidism, unspecified type E03.9 a nd Other elevated white blood cell (WBC) count D72.828 [place] [address] [address] Oct, Morbid obesity due to excess calories E6 6.01 ; Chronic obstructive pulmonary disease, unspecified COPD type J44.9 ; History of lupus Z87.39 ; Hypothyroidism, unspecified type E03.9 ; Gastroesophageal reflux disease without esophagitis K21.9 ; Primary insomnia F51.01 and Chronic pain syndrome G89.4 [place] [address] [address] Sep, [place] [address] [address] Sep, [place] [address] [address] Sep, [place] [address] [address] Sep, Paranoid schizophrenia F20.0 [place] [address] [address] Sep, [facility] [address] [address] Sep, Paranoid schizophrenia F20.0 [facility] [address] [address] Sep, [facility] [address] [address] August, Paranoid schizophrenia F20.0 [facility] [address] [address] Jul, [place] [address] [address] Jul, Type 2 diabetes mellitus without complic ation, without long-term current use of insulin E11.9 ; Morbid obesity due to excess calories E66.01 ; Depression with anxiety F41.8 ; Hypothyroidism, unspecified type E03.9 ; Seasonal allergic rhinitis due to other allergic trigger J30.89 ; Pain, dental K08.89 and Gastroesophageal reflux disease without esophagitis K21.9 [facility] [address] [place] [id number] [place] [id number] Jul, Dental examination Z01.20 [place] [address] [address] 07 Jul, 2016 Paranoid schizophrenia F20.0 [place] [address] [address] 13 Jun, 2016 Paranoid schizophrenia F20.0 and Depress ion with anxiety F41.8 [place] [address] [address] 10 Jun, 2016 Paranoid schizophrenia F20.0 and Depress ion with anxiety F41.8 [facility] [address] [address] 09 Jun, 2016 [facility] [address] [address] 08 Jun, 2016 [facility] [place] [address] [place] [id number] [address] [place] [address] 08 Jun, 2016 Seasonal allergic rhinitis d ue to other allergic trigger J30.[address] [address] 25 May, 2016 Sore throat J02.9 ; Other vi ral agents as the cause of diseases classified elsewhere B97.89 and Acute upper respiratory infection, unspecified J06.[address] [address] 08 May, 2016 Paranoid schizophrenia F20.0 and Depress ion with anxiety F41.[address] [address] Apr, Other seasonal allergic rhinitis J30.[address] [address] Apr, Paranoid schizophrenia F20.0 and Depress ion with anxiety F41.[address] [address] Apr, Bronchitis J40 and Sore thro at J02.[address] [address] Apr, Type 2 diabetes mellitus without complic ation, without long-term current use of insulin E11.[address] [address] Apr, Bronchitis J40 [address] [address] Apr, [address] [address] Apr, [address] [address] Mar, Type 2 diabetes mellitus without complic [...] R60.9 and Other seasonal allergic rhinitis J30.2 [place] [address] [address] 09 Mar, 2016 Paranoid schizophrenia F20.0 and Depress ion with anxiety F41.8 [place] [address] [address] Feb, [place] [address] [address] Feb, [place] [address] [address] Feb, [place] [address] [address] Feb, [place] [address] [address] Feb, Type 2 diabetes mellitus without complic ation, without long-term current use of insulin E11.9 ; ARIAS on CPAP G47.33 and Preoperative evaluation to rule out surgical contraindication Z01.818 [place] [address] [address] Feb, Paranoid schizophrenia F20.0 and Depress ion with anxiety F41.8 [place] [address] [address] Jan, [place] [address] [address] Jan, Paranoid schizophrenia F20.0 and Depress ion with anxiety F41.8 [place] [address] [address] 17 Jan, 2016 [place] [address] [address] Jan, Muscle strain T14.8 [facility] [address] [address] 10 Jan, 2016 Paranoid schizophrenia F20.0 [facility] [address] [address] Jan, [facility] [address] [address] 05 Jan, 2016 Paranoid schizophrenia F20.0 and Depress ion with anxiety F41.8 [facility] [address] [address] Jan, [facility] [address] [address] Jan, [facility] [address] [address] 28 Dec, 2015 [facility] [address] [address] 23 Dec, 2015 Paranoid schizophrenia F20.0 [facility] [address] [address] 16 Dec, 2015 Paranoid schizophrenia F20.0 and Depress ion with anxiety F41.8 [facility] [address] [address] Nov, [facility] [address] [address] Nov, Paranoid schizophrenia F20.0 [facility] [address] [address] Nov, Paranoid schizophrenia F20.0 and Depress ion with anxiety F41.8 [facility] [address] [address] 05 Nov, 2015 Type 2 diabetes mellitus without complic ation, without long-term current use of insulin E11.9 ; Paranoid schizophrenia F20.0 ; Chronic obstructive pulmonary disease, unspecified COPD type J44.9 ; Morbid obesity due to excess calories E66.01 and Parkinsonian tremor G20 [place] [address] [address] Nov, [place] [address] [address] Oct, Paranoid schizophrenia F20.0 [place] [address] [address] Oct, Paranoid schizophrenia F20.0 [place] [address] [address] Oct, Paranoid schizophrenia F20.0 and Depress ion with anxiety F41.8 [place] [address] [address] Oct, [place] [address] [address] Oct, Paranoid schizophrenia F20.0 and Depress ion with anxiety F41.8 [place] [address] [address] Oct, Nasal sore J34.89 [place] [address] [address] Oct, Type 2 diabetes mellitus without complic ation, without long-term current use of insulin E11.9 ; Depression with anxiety F41.8 ; Hypothyroidism, unspecified type E03.9 and History of lupus Z87.39 [place] [address] [address] Oct, [place] [address] [address] Oct, Type 2 diabetes mellitus without complic [...] Z87.39 [facility] [address] [place] [id number] [place] [address] Feb, [facility] [address] [place] [id number] [place] [address] Jan, [facility] [address] [address] Jan, [facility] [address] [address] Jan, [facility] [address] [address] Dec, [facility] [address] [address] Nov, [facility] [address] [address] Nov, [facility] [address] [place] [id number] [place] [address] Oct, [facility] [address] [address] Oct, [facility] [address] [address] Oct, [facility] [address] [address] Sep, Allergic rhinitis 477.9 [facility] [address] [address] Sep, Rhinitis, allergic 477.9 [facility] [address] [address] Sep, Rhinitis, allergic 477.9 [facility] [address] [address] Sep, [facility] [address] [address] August, [facility] [place] [facility] [address] [facility] [id number] [place] [address] August, [facility] [place] [facility] [address] [id number] [place] [address] August, [facility] [place] [facility] [address] [id number] [place] [address] Jul, [facility] [place] [facility] [address] [id number] [place] [address] Jul, [facility] [place] [facility] [address] [id number] [place] [address] Jul, [facility] [place] [facility] [address] [id number] [place] [address] Jun, [facility] [place] [facility] [address] [id number] [place] [address] Jun, [facility] [place] [facility] [address] [id number] [place] [address] Jun, [facility] [place] [facility] [address] [id number] [place] [address] Jun, [facility] [place] [facility] [address] [id number] [place] [address] Jun, [facility] [place] [facility] [address] [id number] [place] [address] Jun, [facility] [place] [facility] [address] [id number] [place] [address] Jun, [facility] [place] [facility] [address] [id number] [place] [address] Jun, [facility] [place] [facility] [address] [id number] [place] [address] May, [facility] [place] [facility] [address] [id number] [place] [address] May, [facility] [place] [facility] [address] [id number] [place] [address] May, [facility] [place] [facility] [address] [id number] [place] [address] May, [facility] [place] [facility] [address] [facility] [id number] [place] [address] Apr, [facility] [place] [facility] [address] [facility] [id number] [place] [address] Mar, [facility] [place] [facility] [address] [id number] [place] [address] Mar, [facility] [place] [facility] [address] [id number] [place] [address] Mar, [facility] [place] [facility] [address] [id number] [place] [address] Mar, [facility] [place] [facility] [address] [id number] [place] [address] Mar, [facility] [place] [facility] [address] [id number] [place] [address] Mar, [facility] [place] [facility] [address] [id number] [place] [address] Mar, [facility] [place] [facility] [address] [id number] [place] [address] Mar, [facility] [place] [facility] [address] [id number] [place] [address] Mar, [facility] [place] [facility] [address] [id number] [place] [address] Feb, [facility] [place] [facility] [address] [id number] [place] [address] Feb, [facility] [place] [facility] [address] [id number] [place] [address] Feb, [facility] [place] [facility] [address] [id number] [place] [address] Feb, [facility] [place] [facility] [address] [id number] [place] [address] Feb, [facility] [place] [facility] [address] [id number] [place] [address] Feb, [facility] [place] [facility] [address] [id number] [place] [address] 12 Feb, 2014 [facility] [place] [facility] [address] [id number] [place] [address] 12 Feb, 2014 [facility] [place] [facility] [address] [id number] [place] [address] 23 Jan, 2014 [facility] [place] [facility] [address] [id number] [place] [address] 23 Jan, 2014 [facility] [place] [facility] [address] [id number] [place] [address] 16 Jan, 2014 [facility] [place] [facility] [address] [id number] [place] [address] 16 Jan, 2014 [facility] [place] [facility] [address] [id number] [place] [address] 15 Jan, 2014 [facility] [place] [facility] [address] [id number] [place] [address] 15 Jan, 2014 [facility] [place] [facility] [address] [id number] [place] [address] 14 Jan, 2014 [facility] [place] [facility] [address] [id number] [place] [address] 14 Jan, 2014 [facility] [place] [facility] [address] [id number] [place] [address] 14 Jan, 2014 [facility] [place] [facility] [address] [id number] [place] [address] 14 Jan, 2014 [facility] [place] [facility] [address] [id number] [place] [address] 18 Dec, 2013 [facility] [place] [facility] [address] [id number] [place] [address] 18 Dec, 2013 [facility] [place] [facility] [address] [id number] [place] [address] 10 Dec, 2013 [facility] [place] [facility] [address] [id number] [place] [address] 10 Dec, 2013 [facility] [place] [facility] [address] [id number] [place] [address] Nov, [facility] [place] [facility] [address] [facility] [id number] [place] [address] Nov, [facility] [place] [facility] [address] [facility] [id number] [facility] [place] [address] Nov, [facility] [place] [facility] [address] [facility] [id number] [place] [address] Nov, [facility] [place] [facility] [address] [facility] [id number] [place] [address] Nov, [facility] [place] [facility] [address] [facility] [id number] [place] [address] Oct, [facility] [place] [facility] [address] [id number] [place] [address] Oct, [facility] [place] [facility] [address] [id number] [place] [address] Oct, [facility] [place] [facility] [address] [id number] [place] [address] Oct, [facility] [place] [facility] [address] [id number] [place] [address] Sep, [facility] [place] [facility] [address] [id number] [place] [address] Sep, [facility] [place] [facility] [address] [id number] [place] [address] Sep, [facility] [place] [facility] [address] [id number] [place] [address] Sep, [facility] [place] [facility] [address] [facility] [id number] [place] [address] Sep, [facility] [place] [facility] [address] [id number] [place] [address] Sep, [facility] [place] [facility] [address] [id number] [place] [address] Sep, [facility] [place] [facility] [address] [id number] [place] [address] Sep, [facility] [place] [facility] [address] [id number] [facility] [place] [address] August, [facility] [place] [facility] [address] [facility] [id number] [facility] [place] [address] August, [facility] [place] [facility] [address] [facility] [id number] [facility] [place] [address] August, [facility] [place] [facility] [address] [id number] [facility] [place] [address] August, [facility] [place] [facility] [address] [facility] [id number] [facility] [place] [address] August, [facility] [place] [facility] [address] [facility] [id number] [place] [address] August, [facility] [place] [facility] [address] [id number] [place] [address] August, [facility] [place] [facility] [address] [id number] [facility] [place] [address] Jul, [facility] [place] [facility] [address] [id number] [facility] [place] [address] Jul, [facility] [place] [facility] [address] [facility] [id number] [place] [address] Jul, [facility] [place] [facility] [address] [id number] [place] [address] Jul, [facility] [place] [facility] [address] [id number] [facility] [place] [address] Jul, [facility] [place] [facility] [address] [id number] [facility] [place] [address] Jul, [facility] [place] [facility] [address] [facility] [id number] [place] [address] Jul, [facility] [place] [facility] [address] [id number] [facility] [place] [address] Jul, [facility] [place] [facility] [address] [id number] [facility] [place] [address] Jul, [facility] [place] [facility] [address] [id number] [facility] [place] [address] Jul, [facility] [place] [facility] [address] [id number] [place] [address] Jul, [facility] [place] [facility] [address] [id number] [place] [address] Jul, [facility] [place] [facility] [address] [id number] [place] [address] Jun, [facility] [place] [facility] [address] [id number] [place] [address] Jun, [facility] [place] [facility] [address] [id number] [place] [address] Jun, [facility] [place] [facility] [address] [id number] [place] [address] Jun, [facility] [place] [facility] [address] [id number] [place] [address] Jun, [facility] [place] [facility] [address] [id number] [place] [address] May, [facility] [place] [facility] [address] [id number] [place] [address] May, [facility] [place] [facility] [address] [id number] [place] [address] May, [facility] [place] [facility] [address] [id number] [place] [address] May, [facility] [place] [facility] [address] [id number] [place] [address] May, [facility] [address] [id number] [place] [address] May, [facility] [address] [id number] [place] [address] May, [facility] [address] [id number] [place] [address] May, [facility] [address] [id number] [place] [address] Mar, [facility] [address] [id number] [place] [address] Mar, [facility] [address] [id number] [place] [address] Mar, [facility] [address] [id number] [place] [address] Mar, [facility] [address] [id number] [place] [address] Mar, [facility] [address] [id number] [place] [address] Mar, [facility] [address] [id number] [place] [address] Feb, [facility] [address] [id number] [place] [address] Feb, [facility] [address] [id number] [place] [address] Jan, [facility] [address] [id number] [place] [address] Jan, [facility] [address] [id number] [place] [address] Jan, [facility] [address] [id number] [place] [address] Jan, [facility] [address] [id number] [place] [address] Jan, [facility] [address] [id number] [place] [address] Jan, [facility] [address] [id number] [place] [address] Jan, [facility] [address] [id number] [place] [address] Jan, [facility] [address] [id number] [place] [address] 08 Jan, 2013 [facility] [address] [id number] [place] [address] Jan, [facility] [address] [id number] [place] [address] 16 Dec, 2012 [facility] [address] [id number] [place] [address] Nov, [facility] [address] [id number] [place] [address] Nov, [facility] [address] [id number] [place] [address] Nov, [facility] [address] [id number] [place] [address] Oct, [facility] [address] [id number] [place] [address] Oct, [facility] [address] [id number] [place] [address] August, [facility] [address] [id number] [place] [address] Apr, [facility] [address] [id number] [place] [address] Apr, [facility] [address] [id number] [place] [address] Feb, [facility] [address] [id number] [place] [address] Feb, [facility] [address] [id number] [place] [address] Dec, [facility] [address] [id number] [place] [address] Dec, [facility] [address] [id number] [place] [address] Oct, [facility] [address] [id number] [place] [address] Oct, [facility] [address] [id number] [place] [address] Oct, [facility] [address] [id number] [place] [address] Jul, IMMUNIZATIONS No Known Immunizations SOCIAL HISTORY [...] hospitalizations for psychosis/mental illness, last one in [facility] 4 years ago Hospitalization History broken ankle 08/2018
--- OUTSIDE RECORDS SUMMARY | 2019-07-07 04:11 | XMS REPORT ---
Author Author Alayna ROJAS Organization [facility] Address [address] [place] [address] Care Team Providers Care Data Sme Name Role Phone RADHA ROJAS Unavailable PROBLEMS Type Condition ICD9-CM Code LKI01-QU Code Onset Dates Condition S tatus SNOMED Code Problem Morbid obesity due to excess calories E66.01 Active 831559891 Problem Paranoid schizophrenia F20.0 Active 91695985 Problem Chronic pain syndrome G89.4 Active 796606697 Problem History of lupus Z87.39 Active 312 340691 Problem Type 2 diabetes mellitus wit hout complication, without long-term current use of insulin E11.9 Active 313639157 Problem Gastroesophageal reflux disease without esophagitis K21.9 Active 586033945 Problem OAB (overactive bladder) N32.81 Activ e 351654436 Problem Hypothyroidism (acquired) E03.9 Acti ve 481598659 Problem Essential hypertension I10 Active 68126574 Problem Chronic obstructive pulmonary disease, unspecified COPD ty pe J44.9 Active 75908131 Problem Depression with anxiety F41.8 Active 377701870 Problem Menopausal syndrome (hot flashes) N95.1 Active 986307941 Problem DM neuro manif type II E11.49 Active 83641657 Problem Other seasonal allergic rhinitis J30.2 Active 260547051 Problem Other allergic rhinitis J30.89 Active 171704219 Problem Gastroesophageal reflux disease, esophagitis pre sence not specified K21.9 Active 229293122 Problem Tobacco abuse Z72.0 Active 691350 000 Problem Dyslipidemia E78.5 Active 9135026 07 Problem Migraine without aura and without status migrain osus, not intractable G43.009 Active 208825328 Problem COPD exacerbation J44.1 Active 19 1101932 Problem Seasonal allergic rhinitis due to pollen J30.1 Active 24111035 Problem Diabetic polyneuropathy associated with type 2 d iabetes mellitus E11.42 Active 894997050 Problem BMI 31.0-31.9,adult Z68.31 Active 062307716 Problem Schizoaffective disorder, depressive type F25.1 Active 76693108 Problem Vaginal dryness, menopausal N95.1 Ac tive 03858010 Problem Seasonal allergic rhinitis due to other allergic trigger J30.89 Active 770577072 Problem Primary insomnia F51.01 Active 397 2004 Problem 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, without long-term current use of insulin E11.610 Active 620712209 Problem Cigarette nicotine dependence without complication F17.210 Active 80554514 Problem Allergic rhinitis, unspecified seasonality, unspecifie d trigger J30.9 Active 19497928 Problem Constipation by delayed colonic transit K59.01 Active 70381955 ALLERGIES No Information ENCOUNTERS Encounter Location Date Diagnosis [place] [address] [address] 18 Mar, 2019 [place] [address] [place] [id number] [place] [address] Mar, [place] [address] [address] Dec, Schizoaffective disorder, de pressive type F25.1 [facility] [address] [facility] [id number] [address] [place] [address] Dec, [facility] [address] [place] [id number] [address] [place] [address] Dec, [place] [address] [place] [id number] [place] [address] Dec, Type 2 diabetes mellitus wit h diabetic [...] abuse Z72.0 and Encounter for immunization Z23 [place] [address] [place] [id number] [address] [place] [address] Dec, Encounter for immunization Z 23 [facility] [address] [id number] [address] [place] [address] Dec, [facility] [address] [id number] [address] [place] [address] 13 Dec, 2018 [facility] [address] [id number] [address] [place] [address] Dec, [facility] [address] [id number] [address] [place] [address] Dec, [facility] [address] [id number] [address] [place] [address] Dec, [facility] [address] [id number] [address] [place] [address] Dec, [facility] [address] [id number] [address] [place] [address] Nov, Paranoid schizophrenia F20.0 [facility] [address] [id number] [address] [place] [address] Nov, [facility] [address] [id number] [address] [place] [address] Nov, [facility] [address] [id number] [address] [place] [address] Nov, [facility] [address] [id number] [address] [place] [address] Nov, Encounter for comprehensive diabetic foot examination, type 2 diabetes mellitus E11.9 and Morbid obesity E66.01 [facility] [address] [id number] [address] [place] [address] Nov, [facility] [address] [id number] [address] [place] [address] Nov, [facility] [address] [id number] [address] [place] [address] Nov, [facility] [address] [id number] [address] [place] [address] Nov, Schizoaffective disorder, de pressive type F25.1 [facility] [address] [facility] [id number] [address] [place] [address] Nov, Constipation by delayed colo james transit K59.01 [facility] [address] [facility] [id number] [address] [place] [address] Oct, [facility] [address] [facility] [id number] [address] [place] [address] Oct, [facility] [address] [facility] [id number] [address] [place] [address] Oct, [facility] [address] [facility] [id number] [address] [place] [address] Oct, Chronic obstructive pulmonar y disease, unspecified COPD type J44.9 [facility] [address] [facility] [id number] [address] [place] [address] Oct, [facility] [address] [facility] [id number] [address] [place] [address] Sep, Paranoid schizophrenia F20.0 [facility] [address] [facility] [id number] [address] [place] [address] Sep, [facility] [address] [facility] [id number] [address] [place] [address] Sep, [facility] [address] [facility] [id number] [address] [place] [address] Sep, Encounter for immunization Z 23 [facility] [address] [facility] [id number] [address] [place] [address] Sep, Closed fracture of right ank le, sequela S82.891S ; Morbid obesity E66.01 and Heat rash L74.0 [facility] [address] [facility] [id number] [address] [place] [address] Sep, [facility] [address] [facility] [id number] [address] [place] [address] Sep, Schizoaffective disorder, de pressive type F25.1 [facility] [address] [id number] [address] [place] [address] Sep, [facility] [address] [id number] [address] [place] [address] Sep, [facility] [address] [id number] [address] [place] [address] Sep, [facility] [address] [id number] [address] [place] [address] Sep, [facility] [address] [id number] [address] [place] [address] Sep, [facility] [address] [id number] [address] [place] [address] Sep, [facility] [address] [id number] [address] [place] [address] Sep, [facility] [address] [id number] [address] [place] [address] Sep, [facility] [address] [id number] [address] [place] [address] Sep, [facility] [address] [id number] [address] [place] [address] August, Paranoid schizophrenia F20.0 [facility] [address] [id number] [address] [place] [address] August, [facility] [address] [id number] [address] [place] [address] August, [facility] [address] [id number] [address] [place] [address] August, [facility] [address] [id number] [address] [place] [address] August, Type 2 diabetes mellitus wit hout complication, without long-term current use of insulin E11.9 ; Closed fracture of right ankle, initial encounter S82.891A ; Constipation by delayed colonic transit K59.01 ; Osteoporosis with pathological fracture, initial encounter M80.00XA ; Encounter for immunization Z23 and Morbid obesity E66.01 [facility] [address] [facility] [id number] [address] [place] [address] August, [facility] [address] [facility] [id number] [address] [place] [address] August, [facility] [address] [place] [id number] [address] [place] [address] August, Acquired deformity of muscul oskeletal system, unspecified M95.9 [facility] [address] [facility] [id number] [address] [place] [address] August, Paranoid schizophrenia F20.0 [facility] [address] [place], [place] [id number] [address] [address] August, [facility] [address] [place] [id number] [address] [place] [address] Jul, [facility] [address] [place] [id number] [address] [place] [address] Jul, Diabetic polyneuropathy asso ciated with type 2 diabetes mellitus E11.42 ; Paranoid schizophrenia F20.0 ; Preoperative clearance Z01.818 and Morbid obesity E66.01 [facility] [address] [facility] [id number] [address] [place] [address] Jul, Paranoid schizophrenia F20.0 [facility] [address] [facility] [id number] [address] [place] [address] Jul, [facility] [address] [place] [id number] [address] [place] [address] Jul, [facility] [address] [place] [id number] [address] [place] [address] Jul, Cigarette nicotine dependenc e without complication F17.210 [facility] [address] [place] [id number] [address] [place] [address] Jul, Type 2 diabetes mellitus wit hout complication, without long-term current use of insulin E11.9 and Hypothyroidism (acquired) E03.9 [place] [address] [facility] [id number] [address] [place] [address] Jul, Encounter for Medicare anndouglas l wellness exam Z00.00 ; Morbid obesity due to excess calories E66.01 ; Diabetic polyneuropathy associated with type 2 diabetes mellitus E11.42 ; Chronic obstructive pulmonary disease, unspecified COPD type J44.9 ; Schizoaffective disorder, depressive type F25.1 ; Hypothyroidism (acquired) E03.9 and Morbid obesity E66.01 [place] [address] [facility] [id number] [address] [place] [address] Jun, Gastroesophageal reflux dise ase without esophagitis K21.9 [place] [address] [place] [id number] [address] [place] [address] Jun, Paranoid schizophrenia F20.0 [place] [address] [place] [id number] [address] [place] [address] Jun, Schizoaffective disorder, de pressive type F25.1 [place] [address] [place] [id number] [address] [place] [address] Jun, [place] [address] [place] [id number] [address] [place] [address] Jun, Schizoaffective disorder, de pressive type F25.1 [place] [address] [place] [id number] [address] [place] [address] Jun, Cigarette nicotine dependenc e without complication F17.210 [place] [address] [facility] [id number] [address] [place] [address] 18 Jun, 2018 Type 2 diabetes mellitus wit hout complication, without long-term current use of insulin E11.9 [place] [address] [place] [id number] [address] [place] [address] 15 Jun, 2018 [place] [address] [address] 13 Jun, 2018 [facility] [address] [address] 13 Jun, 2018 [facility] [address] [address] 07 Jun, 2018 [facility] [address] [address] Jun, [facility] [address] [address] 06 Jun, 2018 Paranoid schizophrenia F20.0 ; Type 2 diabetes mellitus without complication, without long-term current use of insulin E11.9 ; Hypothyroidism (acquired) E03.9 and Morbid obesity E66.01 [place] [address] [address] 28 May, 2018 Paranoid schizophrenia F20.0 [place] [address] [address] 20 May, 2018 Hypothyroidism (acquired) E0 3.9 and Dyslipidemia E78.5 [place] [address] [address] 19 May, 2018 Cigarette nicotine dependenc e without complication F17.210 [place] [address] [address] 18 May, 2018 [place] [address] [address] 14 May, 2018 Type 2 diabetes mellitus wit hout complication, without long-term current use of insulin E11.9 ; Essential hypertension I10 ; Hypothyroidism (acquired) E03.9 and Dyslipidemia E78.5 [place] [address] [address] 13 May, 2018 [place] [address] [address] 08 May, 2018 Schizoaffective disorder, de pressive type F25.1 [facility] [address] [address] 08 May, 2018 Paranoid schizophrenia F20.0 [place] [address] [address] 07 May, 2018 [facility] [place] [address] [place] [address] 07 May, 19 [place] [address] [address] May, [place] [address] [address] May, Type 2 diabetes mellitus wit hout complication, without long-term current use of insulin E11.9 ; Essential hypertension I10 ; Hypothyroidism (acquired) E03.9 and Dyslipidemia E78.5 [place] [address] [address] May, [facility] [address] [address] May, Acute nasopharyngitis J00 [facility] [address] [address] May, Allergic rhinitis, unspecifi ed seasonality, unspecified trigger J30.9 [place] [address] [address] May, [facility] [address] [address] Apr, Schizoaffective disorder, de pressive type F25.1 [place] [address] [address] Apr, [facility] [address] [address] Apr, Cigarette nicotine dependenc e without complication F17.210 [facility] [address] [place] [id number] [address] [place] [address] Apr, [facility] [address] [place] [id number] [address] [place] [address] Apr, Cigarette nicotine dependenc e without complication F17.210 [facility] [address] [place] [id number] [address] [place] [address] Apr, [facility] [address] [place] [id number] [place] [address] Apr, Migraine without aura and wi thout status migrainosus, not intractable G43.009 [place] [address] [place] [id number] [place] [address] Apr, Migraine without aura and wi thout status migrainosus, not intractable G43.009 [facility] [address] [place] [id number] [address] [place] [address] Mar, Schizoaffective disorder, de pressive type F25.1 ; BMI 45.0-49.9, adult Z68.42 and BMI 40.0-44.9, adult Z68.41 [place] [address] [address] Mar, Primary insomnia F51.01 [facility] [address] [address] Mar, [facility] [address] [place] [id number] [place] [address] 14 Feb, 2018 Primary insomnia F51.01 [facility] [address] [place] [id number] [address] [place] [address] Feb, [facility] [address] [place] [id number] [address] [place] [address] 24 Jan, 2018 Schizoaffective disorder, de pressive type F25.1 and BMI 45.0-49.9, adult Z68.42 [facility] [address] [place] [id number] [address] [place] [address] Jan, [place] [address] [address] 16 Jan, 2018 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, without long-term current use of insulin E11.610 ; Menopausal syndrome (hot flashes) N95.1 ; BMI 40.0-44.9, adult Z68.41 and Morbid obesity E66.01 [place] [address] [address] Jan, Paranoid schizophrenia F20.0 [place] [address] [place] [id number] [place] [address] Jan, [place] [address] [address] Jan, Schizoaffective disorder, de pressive type F25.1 [place] [address] [address] Jan, [place] [address] [address] Jan, Chronic obstructive pulmonar y disease, unspecified COPD type J44.9 ; BMI 45.0-49.9, adult Z68.42 ; Type 2 diabetes mellitus without complication, without long-term current use of insulin E11.9 ; Hypothyroidism (acquired) E03.9 ; Encounter for immunization Z23 ; Gastroesophageal reflux disease without esophagitis K21.9 ; Primary insomnia F51.01 and Acute nasopharyngitis J00 [place] [address] [place] [id number] [place] [address] Dec, [place] [address] [address] Dec, Schizoaffective disorder, de pressive type F25.1 and BMI 45.0-49.9, adult Z68.42 [place] [address] [address] Dec, [place] [address] [id number] [address] [place] [address] 18 Dec, 2017 [facility] [address] [id number] [address] [place] [address] 18 Dec, 2017 Acute non-recurrent frontal sinusitis J01.10 [facility] [address] [id number] [address] [place] [address] 18 Dec, 2017 Acute non-recurrent frontal sinusitis J01.10 ; Weakness of left leg R29.898 ; At high risk for falls Z91.81 and BMI 45.0-49.9, adult Z68.42 [facility] [address] [id number] [address] [place] [address] Dec, [facility] [address] [id number] [address] [place] [address] Dec, [facility] [address] [facility] [id number] [address] [place] [address] Dec, Schizoaffective disorder, de pressive type F25.1 [facility] [address] [id number] [address] [place] [address] Dec, Acute nasopharyngitis J00 [facility] [address] [id number] [address] [place] [address] 05 Dec, 2017 Schizoaffective disorder, de pressive type F25.1 [facility] [address] [id number] [address] [place] [address] Dec, [facility] [address] [id number] [address] [place] [address] Nov, Schizoaffective disorder, de pressive type F25.1 and BMI 45.0-49.9, adult Z68.42 [facility] [address] [id number] [address] [place] [address] Nov, [facility] [address] [facility] [id number] [address] [place] [address] Nov, [place] [id number] [place] [address] Nov, Schizoaffective disorder, de pressive type F25.1 [place] [address] [place] [id number] [address] [place] [address] Nov, Well woman exam Z01.419 ; BM I 45.0-49.9, adult Z68.42 ; Screening breast examination Z12.31 and Dietary counseling and surveillance Z71.3 [place] [address] [place] [id number] [address] [place] [address] Nov, Paranoid schizophrenia F20.[address] [id number] Nov, Gastroesophageal reflux dise ase, esophagitis presence not specified K21.9 [place] [id number] [address] [place] [phone] Oct, Paranoid schizophrenia F20.[id number] [place] [id number] Oct, Chronic pain syndrome G89.4 and Schizoaf fective disorder, depressive type F25.1 [place] [id number] [place] [id number] Oct, Chronic pain syndrome G89.4 and Schizoaffective disorder, depressive type F25.1 [place] [address] [address] [place] [id number] [address] [place] [phone] 16 Oct, 2017 Type 2 diabetes mellitus wit hout complication, without long-term current use of insulin E11.9 [place] [address] [address] [place] [id number] [address] [place] [id number] 12 Oct, 2017 Essential hypertension I10 a nd DM neuro manif type II E11.49 [place] [address] [address] [place] [id number] [address] [place] [id number] Oct, [place] [address] [id number] Oct, Schizoaffective disorder, de pressive type F25.1 and BMI 45.0-49.9, adult Z68.42 [facility] [address] [facility] [id number] [address] [place] [phone] Oct, [facility] [address] [facility] [id number] [address] [place] [phone] Oct, Paranoid schizophrenia F20.0 [facility] [address] [facility] [id number] [address] [place] [id number] Oct, 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, without long-term current use of insulin E11.610 ; Essential hypertension I10 ; Hypothyroidism (acquired) E03.9 ; Chronic obstructive pulmonary disease, unspecified COPD type J44.9 and Diabetic polyneuropathy associated with type 2 diabetes mellitus E11.42 [facility] [address] [facility] [id number] [address] [place] [phone] Sep, Paranoid schizophrenia F20.0 [facility] [address] [facility] [id number] [address] [place] [address] Sep, Paranoid schizophrenia F20.0 and BMI 45.0-49.9, adult Z68.42 [facility] [address] [place] [id number] [address] [place] [phone] Sep, Schizoaffective disorder, de pressive type F25.1 [facility] [address] [place] [id number] [address] [place] [phone] Sep, [facility] [address] [facility] [id number] [address] [place] [address] Sep, Paranoid schizophrenia F20.0 [facility] [address] [facility] [id number] [address] [place] [phone] Sep, [facility] [address] [facility] [id number] [address] [place] [phone] 06 Sep, 2017 Hypothyroidism (acquired) E0 3.9 [facility] [address] [facility] [id number] [address] [place] [phone] Sep, [facility] [address] [facility] [id number] [address] [place] [phone] August, Schizoaffective disorder, de pressive type F25.1 [facility] [address] [facility] [id number] [address] [place] [phone] August, [facility] [address] [facility] [id number] [address] [place] [phone] August, [facility] [address] [facility] [id number] [address] [place] [phone] August, [facility] [address] [place] [id number] [place] [address] August, Paranoid schizophrenia F20.0 [facility] [address] [place] [id number] [place] [phone] August, History of lupus Z87.39 and Chronic pain syndrome G89.4 [facility] [address] [place] [id number] [address] [place] [id number] August, [facility] [address] [place] [id number] [place] [phone] August, Seasonal allergic rhinitis, unspecified trigger J30.2 and BMI 45.0-49.9, adult Z68.42 [facility] [address] [facility] [id number] [address] [place] [phone] Jul, Schizoaffective disorder, de pressive type F25.1 [facility] [address] [facility] [id number] [address] [place] [phone] Jul, [facility] [address] [place] [id number] [place] [phone] Jul, Hypothyroidism (acquired) E0 3.9 [facility] [address] [facility] [id number] [address] [place] [address] Jul, Chronic obstructive pulmonar y disease, unspecified COPD type J44.9 and Type 2 diabetes mellitus without complication, without long-term current use of insulin E11.9 [facility] [address] [address] Jul, Paranoid schizophrenia F20.0 [facility] [address] [address] Jun, Hypothyroidism (acquired) E0 3.9 and Seasonal allergic rhinitis due to pollen J30.1 [facility] [address] [place] [id number] [place] [id number] Jun, Shortness of breath at rest R06.02 ; COPD exacerbation J44.1 and BMI 45.0-49.9, adult Z68.42 [facility] [address] [address] Jun, [facility] [address] [address] Jun, Paranoid schizophrenia F20.0 ; Depression with anxiety F41.8 and BMI 45.0-49.9, adult Z68.42 [facility] [address] [address] Jun, Schizoaffective disorder, de pressive type F25.1 [facility] [address] [place] [id number] [address] [place] [id number] Jun, Dental caries K02.9 [facility] [address] [address] Jun, Paranoid schizophrenia F20.0 [facility] [address] [address] May, Migraine without aura and wi thout status migrainosus, not intractable G43.009 ; DM neuro manif type II E11.49 and Type 2 diabetes mellitus without complication, without long-term current use of insulin E11.9 [facility] [address] [address] May, Migraine without aura and wi thout status migrainosus, not intractable G43.009 [facility] [address] [place] [id number] [address] [place] [address] May, Depression with anxiety F41. 8 [facility] [address] [facility] [id number] [address] [place] [id number] May, [facility] [address] [address] May, [facility] [address] [address] May, [place] [address] [address] May, Hypothyroidism (acquired) E0 3.9 [place] [address] [address] May, Paranoid schizophrenia F20.0 [facility] [address] [place] [id number] [address] [place] [address] May, Type 2 diabetes mellitus wit hout complication, [...] N32.81 and Controlled substance agreement signed Z79.899 [place] [address] [address] May, Controlled substance agreeme nt signed Z79.899 [place] [address] [address] Apr, [facility] [address] [id number] [address] [place] [address] [id number] Apr, Dental examination Z01.20 [facility] [address] [facility] [id number] [address] [place] [address] Apr, Paranoid schizophrenia F20.0 [facility] [address] [facility] [id number] [address] [place] [phone] Apr, Hypertension, unspecified ty pe I10 [facility] [address] [facility] [id number] [address] [place] [address] Apr, Paranoid schizophrenia F20.0 [facility] [address] [facility] [id number] [address] [place] [phone] Apr, [facility] [address] [facility] [id number] [address] [place] [phone] Apr, Tobacco abuse Z72.0 [facility] [address] [facility] [id number] [address] [place] [phone] Apr, [facility] [address] [facility] [id number] [address] [place] [phone] Mar, [facility] [address] [facility] [id number] [address] [place] [address] Mar, Paranoid schizophrenia F20.0 and BMI 45.0-49.9, adult Z68.42 [facility] [address] [facility] [id number] [address] [place] [address] Mar, Schizoaffective disorder, de pressive type F25.1 [facility] [address] [facility] [id number] [address] [place] [phone] Mar, [facility] [address] [facility] [id number] [address] [place] [id number] Mar, Schizoaffective disorder, de pressive type F25.1 [facility] [address] [facility] [id number] [address] [place] [address] Mar, Hypothyroidism, unspecified type E03.9 [facility] [address] [facility] [id number] [address] [place] [address] Feb, Gastroenteritis K52.9 and BM I 45.0-49.9, adult Z68.42 [facility] [address] [place] [id number] [address] [place] [address] Feb, [facility] [address] [place] [id number] [place] [address] Feb, [facility] [address] [place] [id number] [place] [address] Feb, [facility] [address] [address] Feb, [place] [address] [address] Feb, Paranoid schizophrenia F20.0 [facility] [address] [address] Feb, Gastroesophageal reflux dise ase without esophagitis K21.9 ; Other seasonal allergic rhinitis J30.2 ; Other allergic rhinitis J30.89 ; Tobacco abuse Z72.0 and BMI 40.0-44.9, adult Z68.41 [facility] [address] [place] [id number] [address] [place] [address] Feb, Onychomycosis B35.1 ; Callus of foot L84 and DM neuro manif type II E11.49 [facility] [address] [place] [id number] [address] [place] [address] Jan, Chronic allergic rhinitis J3 0.9 [place] [address] [address] Jan, [facility] [address] [place] [id number] [place] [phone] Jan, Schizoaffective disorder, de pressive type F25.1 [place] [address] [place] [id number] [address] [place] [address] 10 Jan, 2017 [facility] [address] [place] [id number] [address] [place] [address] 07 Jan, 2017 Sore throat J02.9 and Season al allergic rhinitis due to other allergic trigger J30.89 [facility] [address] [place] [id number] [address] [place] [phone] 04 Jan, 2017 [facility] [address] [place] [id number] [place] [address] 04 Jan, 2017 [facility] [address] [place] [id number] [place] [phone] Jan, Chronic allergic rhinitis J3 0.9 [facility] [address] [place] [id number] [place] [id number] 27 Dec, 2016 Paranoid schizophrenia F20.0 ; Primary insomnia F51.01 and Schizoaffective disorder, depressive type F25.1 [facility] [address] [address] Dec, Chronic pain syndrome G89.4 ; Cervicalgia of ejslpqia-byqxyci-mjdvk region M54.2 ; Menopausal syndrome (hot flashes) N95.1 and Encounter for immunization Z23 [facility] [address] [place] [id number] [address] [place] [address] 14 Dec, 2016 [place] [address] [address] 13 Dec, 2016 [place] [address] [place] [id number] [place] [phone] 08 Dec, 2016 Paranoid schizophrenia F20.0 [place] [address] [place] [id number] [place] [phone] Dec, Schizoaffective disorder, de pressive type F25.1 [place] [address] [place] [id number] [address] [place] [address] Nov, Hypothyroidism, unspecified type E03.9 [facility] [address] [facility] [id number] [address] [place] [address] Nov, Acute seasonal allergic rhin itis due to other allergen J30.89 [facility] [address] [facility] [id number] [address] [place] [address] Nov, [facility] [address] [facility] [id number] [address] [place] [address] Nov, Hypothyroidism, unspecified type E03.9 and Other elevated white blood cell (WBC) count D72.828 [place] [address] [facility] [id number] [address] [place] [address] Nov, Schizoaffective disorder, de pressive type F25.1 [facility] [address] [place] [id number] [address] [place] [address] Nov, Paranoid schizophrenia F20.0 [place] [address] [place] [id number] [address] [place] [phone] Nov, Type 2 diabetes mellitus wit hout complication, without long-term current use of insulin E11.9 ; Morbid obesity due to excess calories E66.01 and Chronic pain syndrome G89.4 [facility] [address] [place] [id number] [address] [place] [address] Oct, Paranoid schizophrenia F20.0 [facility] [address] [place] [id number] [address] [place] [phone] Oct, [place] [address] [place] [id number] [address] [place] [address] Oct, Schizoaffective disorder, de pressive type F25.1 [facility] [address] [place] [id number] [address] [place] [address] Oct, Hypothyroidism, unspecified type E03.9 and Other elevated white blood cell (WBC) count D72.828 [facility] [address] [place] [id number] [address] [place] [address] Oct, Morbid obesity due to excess calories E66.01 ; Chronic obstructive pulmonary disease, unspecified COPD type J44.9 ; History of lupus Z87.39 ; Hypothyroidism, unspecified type E03.9 ; Gastroesophageal reflux disease without esophagitis K21.9 ; Primary insomnia F51.01 and Chronic pain syndrome G89.4 [facility] [address] [facility] [id number] [address] [place] [address] Sep, [facility] [address] [facility] [id number] [address] [place] [id number] Sep, [facility] [address] [facility] [id number] [address] [place] [address] Sep, [facility] [address] [facility] [id number] [address] [place] [address] Sep, Paranoid schizophrenia F20.0 [facility] [address] [facility] [id number] [address] [place] [address] Sep, [facility] [address] [facility] [id number] [address] [place] [phone] Sep, Paranoid schizophrenia F20.0 [facility] [address] [facility] [id number] [address] [place] [address] Sep, [facility] [address] [facility] [id number] [address] [place] [address] August, Paranoid schizophrenia F20.0 [facility] [address] [facility] [id number] [address] [place] [address] Jul, [facility] [address] [facility] [id number] [address] [place] [address] Jul, Type 2 diabetes mellitus wit hout complication, without long-term current use of insulin E11.9 ; Morbid obesity due to excess calories E66.01 ; Depression with anxiety F41.8 ; Hypothyroidism, unspecified type E03.9 ; Seasonal allergic rhinitis due to other allergic trigger J30.89 ; Pain, dental K08.89 and Gastroesophageal reflux disease without esophagitis K21.9 [facility] [address] [place] [id number] [address] [place] [id number] Jul, 2016 Dental examination Z01.20 [place] [address] [address] 07 Jul, 2016 Paranoid schizophrenia F20.0 [place] [address] [address] 13 Jun, 2016 Paranoid schizophrenia F20.0 and Depression with anxiety F41.8 [place] [address] [address] 10 Jun, 2016 Paranoid schizophrenia F20.0 and Depression with anxiety F41.8 [place] [address] [address] 09 Jun, 2016 [place] [address] [address] Jun, [facility] [place] [address] [address] Jun, Seasonal allergic rhinitis d ue to other allergic trigger J30.89 [facility] [address] [address] May, Sore throat J02.9 ; Other vi ral agents as the cause of diseases classified elsewhere B97.89 and Acute upper respiratory infection, unspecified J06.9 [place] [address] [address] May, Paranoid schizophrenia F20.0 and Depression with anxiety F41.8 [place] [address] [place] [id number] [address] [place] [address] Apr, Other seasonal allergic rhin itis J30.2 [place] [address] [place] [id number] [place] [phone] Apr, Paranoid schizophrenia F20.0 and Depression with anxiety F41.8 [facility] [place] [address] [address] Apr, Bronchitis J40 and Sore thro at J02.9 [facility] [address] [address] Apr, Type 2 diabetes mellitus wit hout complication, without long-term current use of insulin E11.9 [facility] [address] [place] [id number] [address] [place] [address] Apr, Bronchitis J40 [facility] [address] [address] Apr, [facility] [address] [address] Apr, [facility] [address] [address] Mar, Type 2 diabetes mellitus wit hout complication, [...] R60.9 and Other seasonal allergic rhinitis J30.2 [place] [address] [place] [id number] [address] [place] [address] Mar, Paranoid schizophrenia F20.0 and Depression with anxiety F41.8 [facility] [address] [place] [id number] [address] [place] [address] Feb, [place] [address] [address] Feb, [place] [address] [address] Feb, [place] [address] [address] Feb, [facility] [address] [id number] [address] [place] [id number] 14 Feb, 2016 Type 2 diabetes mellitus wit hout complication, without long-term current use of insulin E11.9 ; ARIAS on CPAP G47.33 and Preoperative evaluation to rule out surgical contraindication Z01.818 [facility] [address] [id number] [address] [place] [phone] 09 Feb, 2016 Paranoid schizophrenia F20.0 and Depression with anxiety F41.8 [facility] [address] [id number] [address] [place] [address] 18 Jan, 2016 [facility] [address] [id number] [address] [place] [phone] 18 Jan, 2016 Paranoid schizophrenia F20.0 and Depression with anxiety F41.8 [facility] [address] [id number] [address] [place] [id number] 17 Jan, 2016 [facility] [address] [id number] [address] [place] [phone] 14 Jan, 2016 Muscle strain T14.8 [facility] [address] [id number] [address] [place] [id number] 10 Jan, 2016 Paranoid schizophrenia F20.0 [facility] [address] [id number] [address] [place] [id number] 07 Jan, 2016 [facility] [address] [id number] [address] [place] [phone] 05 Jan, 2016 Paranoid schizophrenia F20.0 and Depression with anxiety F41.8 [facility] [address] [id number] [address] [place] [phone] 05 Jan, 2016 [facility] [address] [id number] [address] [place] [id number] Jan, [facility] [address] [id number] [address] [place] [phone] Dec, [facility] [address] [id number] [address] [place] [address] Dec, Paranoid schizophrenia F20.0 [facility] [address] [id number] [address] [place] [id number] 16 Dec, 2015 Paranoid schizophrenia F20.0 and Depression with anxiety F41.8 [facility] [address] [id number] [address] [place] [address] Nov, [facility] [address] [id number] [address] [place] [id number] Nov, Paranoid schizophrenia F20.0 [facility] [address] [id number] [address] [place] [id number] Nov, Paranoid schizophrenia F20.0 and Depression with anxiety F41.8 [facility] [address] [id number] [address] [place] [id number] Nov, Type 2 diabetes mellitus wit hout complication, without long-term current use of insulin E11.9 ; Paranoid schizophrenia F20.0 ; Chronic obstructive pulmonary disease, unspecified COPD type J44.9 ; Morbid obesity due to excess calories E66.01 and Parkinsonian tremor G20 [facility] [address] [id number] [address] [place] [id number] Nov, [facility] [address] [id number] [address] [place] [id number] Oct, Paranoid schizophrenia F20.0 [facility] [address] [id number] [address] [place] [id number] Oct, Paranoid schizophrenia F20.0 [facility] [address] [id number] [address] [place] [id number] Oct, Paranoid schizophrenia F20.0 and Depression with anxiety F41.8 [facility] [address] [id number] [address] [place] [id number] Oct, [facility] [address] [id number] [address] [place] [id number] Oct, Paranoid schizophrenia F20.0 and Depression with anxiety F41.8 [place] [id number] [place] [id number] [address] [place] [id number] Oct, Nasal sore J34.89 [facility] [address] [facility] [id number] [address] [place] [id number] Oct, Type 2 diabetes mellitus wit hout complication, without long-term current use of insulin E11.9 ; Depression with anxiety F41.8 ; Hypothyroidism, unspecified type E03.9 and History of lupus Z87.39 [place] [address] [place] [id number] [address] [place] [id number] Oct, [place] [address] [place] [id number] [place] [id number] Oct, Type 2 diabetes mellitus wit hout complication, [...] edema R60.9 and History of lupus Z87.39 [place] [address] [place] [id number] [address] [place] [id number] Feb, [place] [address] [place] [id number] [address] [place] [id number] Jan, [place] [address] [address] [place] [place] [id number] [address] [place] [address] Jan, [place] [address] [place] [id number] [address] [place] [address] Jan, [place] [address] [place] [id number] [address] [place] [address] Dec, [place] [address] [place] [id number] [place] [address] [place] [address] Nov, [facility] [address] [id number] [address] [place] [address], [place] [address] Nov, [facility] [address] [id number] [address] [place] [address], [place] [address] Oct, [facility] [address] [id number] [address] [place] [address], [place] [address] Oct, [facility] [address] [id number] [address] [place] [address] Oct, [facility] [place] [address] [id number] [address] [place] [address] Sep, Allergic rhinitis 477.9 [facility] [address] [id number] [address] [place] [address], [place] [address] Sep, Rhinitis, allergic 477.9 [facility] [address] [id number] [address] [place] [address] Sep, Rhinitis, allergic 477.9 [facility] [address] [id number] [address] [place] [address], [place] [address] Sep, [facility] [address] [id number] [address] [place] [address] August, [facility] [address] [id number] [address] [place] [address] August, [facility] [address] [id number] [address] [place] [address] August, [facility] [address] [id number] [address] [place] [address], [place] [address] Jul, [facility] [address] [id number] [address] [place] [id number] 14 Jul, 2014 [facility] [address] [id number] [address] [place] [address] Jul, [facility] [address] [id number] [address] [place] [address] [place] [address] 16 Jun, 2014 [facility] [address] [id number] [address] [place] [address], [place] [address] 16 Jun, 2014 [facility] [address] [id number] [address] [place] [address], [place] [address] 12 Jun, 2014 [facility] [address] [id number] [address] [place] [address], [place] [address] 12 Jun, 2014 [facility] [address] [id number] [address] [place] [address], [place] [address] 11 Jun, 2014 [facility] [address] [id number] [address] [place] [address], [place] [address] Jun, [facility] [address] [id number] [address] [place] [address], [place] [address] Jun, [facility] [address] [id number] [address] [place] [address], [place] [address] Jun, [facility] [address] [id number] [address] [place] [address], [place] [address] May, [facility] [address] [id number] [address] [place] [address], [place] [address] May, [facility] [address] [id number] [address] [place] [address], [place] [address] May, [facility] [address] [id number] [address] [place] [address], [place] [address] May, [facility] [address] [id number] [address] [place] [address], [place] [address] Apr, [facility] [address] [id number] [address] [place] [address], [place] [address] Mar, [facility] [address] [id number] [address] [place] [address], [place] [address] Mar, [facility] [address] [id number] [address] [place] [address], [place] [address] Mar, [facility] [address] [id number] [address] [place] [address], [place] [address] Mar, [facility] [address] [id number] [address] [place] [address], [place] [address] Mar, [facility] [address] [id number] [address] [place] [address], [place] [address] Mar, [facility] [address] [id number] [address] [place] [address], [place] [address] Mar, [facility] [address] [id number] [address] [place] [address], [place] [address] Mar, [facility] [address] [id number] [address] [place] [address], [place] [address] Mar, [facility] [address] [id number] [address] [place] [address], [place] [address] Feb, [facility] [address] [id number] [address] [place] [address], [place] [address] Feb, [facility] [address] [id number] [address] [place] [address], [place] [address] Feb, [facility] [address] [id number] [address] [place] [address], [place] [address] Feb, [facility] [address] [id number] [address] [place] [address], [place] [address] 14 Feb, 2014 [facility] [address] [id number] [address] [place] [address], [place] [address] 14 Feb, 2014 [facility] [address] [id number] [address] [place] [address], [place] [address] Feb, [facility] [address] [id number] [address] [place] [address], [place] [address] Feb, [facility] [address] [id number] [address] [place] [address], [place] [address] Jan, [facility] [address] [id number] [address] [place] [address], [place] [address] 23 Jan, 2014 [facility] [address] [id number] [address] [place] [address], [place] [address] 16 Jan, 2014 [facility] [address] [id number] [address] [place] [address], [place] [address] 16 Jan, 2014 [facility] [address] [id number] [address] [place] [address], [place] [address] 15 Jan, 2014 [facility] [address] [id number] [address] [place] [address], [place] [address] 15 Jan, 2014 [facility] [address] [id number] [address] [place] [address], [place] [address] 14 Jan, 2014 [facility] [address] [id number] [address] [place] [address], [place] [address] 14 Jan, 2014 [facility] [address] [id number] [address] [place] [address], [place] [address] 14 Jan, 2014 [facility] [address] [id number] [address] [place] [address], [place] [address] 14 Jan, 2014 [facility] [address] [id number] [address] [place] [address], [place] [address] 18 Dec, 2013 [facility] [address] [id number] [address] [place] [address], [place] [address] 18 Dec, 2013 [facility] [address] [id number] [address] [place] [address], [place] [address] 10 Dec, 2013 [facility] [address] [id number] [address] [place] [address], [place] [address] 10 Dec, 2013 [facility] [address] [id number] [address] [place] [address], [place] [address] Nov, [facility] [address] [id number] [address] [place] [address], [place] [address] Nov, [facility] [address] [id number] [address] [place] [address], [place] [address] Nov, [facility] [address] [id number] [address] [place] [address], [place] [address] Nov, [facility] [address] [id number] [address] [place] [address], [place] [address] Nov, [facility] [address] [id number] [address] [place] [address], [place] [address] Oct, [facility] [address] [id number] [address] [place] [address], [place] [address] Oct, [facility] [address] [id number] [address] [place] [address], [place] [address] Oct, [facility] [address] [id number] [address] [place] [address], [place] [address] Oct, [facility] [address] [id number] [address] [place] [address], [place] [address] Sep, [facility] [address] [id number] [address] [place] [address], [place] [address] Sep, [facility] [address] [id number] [address] [place] [address], [place] [address] Sep, [facility] [address] [id number] [address] [place] [address], [place] [address] Sep, [facility] [address] [id number] [address] [place] [address], [place] [address] Sep, [facility] [address] [id number] [address] [place] [address], [place] [address] Sep, [facility] [address] [id number] [address] [place] [address], [place] [address] Sep, [facility] [address] [id number] [address] [place] [address], [place] [address] Sep, [facility] [address] [id number] [address] [place] [address], [place] [address] August, [facility] [address] [id number] [address] [place] [address], [place] [address] August, [facility] [address] [id number] [facility] [place] [address] August, [facility] [address] [id number] [address] [place] [address], [place] [address] August, [facility] [address] [id number] [address] [place] [address], [place] [address] August, [facility] [address] [id number] [address] [place] [address], [place] [address] August, [facility] [address] [id number] [address] [place] [address], [place] [address] August, [facility] [address] [id number] [address] [place] [address], [place] [address] Jul, [facility] [address] [id number] [address] [place] [address], [place] [address] Jul, [facility] [address] [id number] [address] [place] [address], [place] [address] Jul, [facility] [address] [id number] [address] [place] [address], [place] [address] Jul, [facility] [address] [id number] [address] [place] [address], [place] [address] Jul, [facility] [address] [id number] [address] [place] [address], [place] [address] Jul, [facility] [address] [id number] [address] [place] [address], [place] [address] Jul, [facility] [address] [id number] [address] [place] [address], [place] [address] Jul, [facility] [address] [id number] [address] [place] [address], [place] [address] Jul, [facility] [address] [id number] [address] [place] [address], [place] [address] Jul, [facility] [address] [id number] [address] [place] [address], [place] [address] Jul, [facility] [address] [id number] [address] [place] [address], [place] [address] Jul, [facility] [address] [id number] [address] [place] [address], [place] [address] Jun, [facility] [address] [id number] [address] [place] [address], [place] [address] Jun, [facility] [address] [id number] [address] [place] [address], [place] [address] Jun, [facility] [address] [id number] [address] [place] [address], [place] [address] Jun, [facility] [address] [id number] [address] [place] [address], [place] [address] Jun, [facility] [address] [id number] [address] [place] [address], [place] [address] May, [facility] [address] [id number] [address] [place] [address], [place] [address] May, [facility] [address] [id number] [address] [place] [address], [place] [address] May, [facility] [address] [id number] [address] [place] [address], [place] [address] May, [facility] [address] [id number] [address] [place] [address], [place] [address] May, [facility] [address] [id number] [address] [place] [address], [place] [address] May, [facility] [address] [id number] [address] [place] [address], [place] [address] May, [facility] [address] [id number] [address] [place] [address], [place] [address] May, [facility] [address] [id number] [address] [place] [address], [place] [address] Mar, [facility] [address] [id number] [address] [place] [address], [place] [address] Mar, [facility] [address] [id number] [address] [place] [address], [place] [address] Mar, [facility] [address] [id number] [address] [place] [address], [place] [address] Mar, [facility] [address] [id number] [address] [place] [address], [place] [address] Mar, [facility] [address] [id number] [address] [place] [address], [place] [address] Mar, [facility] [address] [id number] [address] [place] [address], [place] [address] Feb, [facility] [address] [id number] [address] [place] [address], [place] [address] Feb, [facility] [address] [id number] [address] [place] [address], [place] [address] Jan, [facility] [address] [id number] [address] [place] [address], [place] [address] Jan, [facility] [address] [id number] [address] [place] [address] Jan, [facility] [address] [id number] [address] [place] [address] Jan, [facility] [address] [id number] [address] [place] [address] Jan, [facility] [address] [id number] [address] [place] [address], [place] [address] Jan, [facility] [address] [id number] [address] [place] [address], [place] [address] Jan, [facility] [address] [id number] [address] [place] [address] Jan, [facility] [address] [id number] [address] [place] [address] [place] [address] Jan, [facility] [address] [id number] [address] [place] [address], [place] [address] Jan, [facility] [address] [id number] [address] [place] [address], [place] [address] Dec, [facility] [address] [id number] [address] [place] [address], [place] [address] Nov, [facility] [address] [id number] [address] [place] [address], [place] [address] Nov, [facility] [address] [id number] [address] [place] [address], [place] [address] Nov, [facility] [address] [id number] [address] [place] [address], [place] [address] Oct, [facility] [address] [id number] [address] [place] [address], [place] [address] Oct, [facility] [address] [id number] [address] [place] [address], [place] [address] August, [facility] [address] [id number] [address] [place] [address], [place] [address] Apr, [facility] [place] [address] [id number] [address] [place] [address], [place] [address] Apr, [facility] [place] [address] [id number] [address] [place] [address], [place] [address] Feb, [facility] [address] [id number] [address] [place] [address], [place] [address] Feb, [facility] [address] [id number] [address] [place] [address], [place] [address] Dec, [facility] [address] [id number] [address] [place] [address], [place] [address] Dec, [facility] [address] [id number] [address] [place] [address], [place] [address] Oct, [facility] [address] [facility] [id number] [address] [place] [address] Oct, [facility] [address] [facility] [id number] [address] [place] [address] Oct, [facility] [address] [facility] [id number] [address] [place] [address] Jul, IMMUNIZATIONS No Known Immunizations SOCIAL HISTORY [...] psychosis/mental illness, last one in [facility] 4 years ago Hospitalization History broken ankle 08/2018
--- OUTSIDE RECORDS SUMMARY | 2019-07-07 04:11 | XMS REPORT ---
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 Name Role Phone CRUZ ELVER Unavailable PROBLEMS Type Condition ICD9-CM Code HNH53-IZ Code Onset Dates Condition S tatus SNOMED Code Problem Type 2 diabetes mellitus wit hout complication, without long-term current use of insulin E11.9 Active 110352652 Problem Gastroesophageal reflux disease without esophagitis K21.9 Active 701239820 Problem History of lupus Z87.39 Active 312 549949 Problem Schizoaffective disorder, depressive type F25.1 Active 84674672 Problem Seasonal allergic rhinitis due to other allergic trigger J30.89 Active 167492621 Problem DM neuro manif type II E11.49 Active 73584456 Problem Primary insomnia F51.01 Active 397 2004 Problem Diabetic polyneuropathy associated with type 2 d iabetes mellitus E11.42 Active 671134444 Problem Chronic pain syndrome G89.4 Active 967021324 Problem 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, without long-term current use of insulin E11.610 Active 483780496 Problem Morbid obesity due to excess calories E66.01 Active 770499813 Problem OAB (overactive bladder) N32.81 Activ e 202290413 Problem Paranoid schizophrenia F20.0 Active 46309372 Problem Gastroesophageal reflux disease, esophagitis pre sence not specified K21.9 Active 572840497 Problem Tobacco abuse Z72.0 Active 154432 000 Problem Dyslipidemia E78.5 Active 1218172 07 Problem Migraine without aura and without status migrain osus, not intractable G43.009 Active 622121792 Problem Hypothyroidism (acquired) E03.9 Acti ve 709995817 Problem Essential hypertension I10 Active 69184839 Problem Seasonal allergic rhinitis due to pollen J30.1 Active 34888747 Problem Chronic obstructive pulmonary disease, unspecified COPD ty pe J44.9 Active 75398653 Problem COPD exacerbation J44.1 Active 19 5973816 Problem Depression with anxiety F41.8 Active 388316226 Problem Cigarette nicotine dependence without complication F17.210 Active 14040269 Problem Allergic rhinitis, unspecified seasonality, unspecifie d trigger J30.9 Active 13187235 Problem Constipation by delayed colonic transit K59.01 Active 81350979 Problem Constipation, unspecified constipation type K59.00 Active 63115283 Problem Other allergic rhinitis J30.89 Active 308678090 Problem Constipation, unspecified constipation type K59.00 Active 71377273 Problem Menopausal syndrome (hot flashes) N95.1 Active 245983910 Problem Other seasonal allergic rhinitis J30.2 Active 661893921 Problem BMI 31.0-31.9,adult Z68.31 Active 755559390 Problem Vaginal dryness, menopausal N95.1 Ac tive 87535053 Problem Diverticulitis K57.92 Active 49244 6006 Problem BMI 40.0-44.9, adult Z68.41 Active 336626180 ALLERGIES No Information ENCOUNTERS Encounter Location Date Diagnosis [place] [address] [address] Jul, [facility] [address] [facility] [id number] [address] [place] [address] Apr, Sore throat J02.9 and Non-re current acute suppurative otitis media of both ears without spontaneous rupture of tympanic membranes H66.003 [facility] [address] [address] Apr, [place] [address] [address] Apr, [place] [address] [address] Apr, Schizoaffective disorder, depressive typ e F25.1 [place] [address] [address] Mar, Schizoaffective disorder, depressive typ e F25.1 [place] [address] [address] Mar, [facility] [address] [facility] [id number] [address] [place] [address] Mar, Acute nasopharyngitis J00 [facility] [address] [address] Mar, [facility] [address] [address] Mar, [facility] [address] [place] [id number] [place] [id number] Mar, Caries K02.9 [facility] [address] [id number] Feb, Dental examination Z01.20 and Caries K02 .9 [place] [address] [address] Feb, Constipation, unspecified constipation t ype K59.00 ; Acute hemorrhoid K64.9 ; Tobacco abuse Z72.0 ; BMI 40.0-44.9, adult Z68.41 and Dyslipidemia E78.5 [place] [address] [address] Feb, [facility] [address] [address] Feb, [place] [address] [address] Feb, BMI 40.0-44.9, adult Z68.41 ; Constipati on, unspecified constipation type K59.00 ; Left lower quadrant abdominal pain R10.32 ; Hypothyroidism (acquired) E03.9 and Tobacco abuse Z72.0 [facility] [address] [address] Feb, [place] [address] [address] Feb, Chronic obstructive pulmonary disease, u nspecified COPD type J44.9 [facility] [address] [address] Jan, [facility] [address] [address] Jan, Paranoid schizophrenia F20.0 [place] [address] [address] Jan, [facility] [address] [address] 29 Jan, 2019 [place] [address] [address] 28 Jan, 2019 Diverticulitis K57.92 and Diarrhea, unsp ecified type R19.7 [place] [address] [address] 17 Jan, 2019 Paranoid schizophrenia F20.0 and Tobacco abuse Z72.0 [place] [address] [address] 15 Jan, 2019 Paranoid schizophrenia F20.0 [place] [address] [address] 14 Jan, 2019 Tobacco use Z72.0 [place] [address] [address] 14 Jan, 2019 Hypothyroidism (acquired) E03.9 and Type 2 diabetes mellitus without complication, without long-term current use of insulin E11.9 [place] [address] [address] 10 Jan, 2019 Paranoid schizophrenia F20.0 [place] [address] [address] 08 Jan, 2019 [place] [address] [address] 04 Jan, 2019 Chronic obstructive pulmonary disease, u nspecified COPD type J44.9 [place] [address] [address] 30 Dec, 2018 [place] [address] [address] Dec, Schizoaffective disorder, depressive typ e F25.1 [place] [address] [address] Dec, [facility] [address] [address] Dec, [facility] [address] [address] Dec, Type 2 diabetes mellitus with diabetic [...] and Encounter for immunization Z23 [place] [address] [address] Dec, Encounter for immunization Z23 [place] [address] [address] Dec, [facility] [address] [address] Dec, [facility] [address] [address] Dec, [facility] [address] [address] Dec, [facility] [address] [address] Dec, [facility] [address] [address] Dec, [facility] [address] [address] Nov, Paranoid schizophrenia F20.0 [facility] [address] [address] Nov, [facility] [address] [address] Nov, [facility] [address] [address] Nov, [facility] [address] [address] Nov, Encounter for comprehensive diabetic monique t examination, type 2 diabetes mellitus E11.9 and Morbid obesity E66.01 [facility] [address] [address] Nov, [facility] [address] [address] Nov, [facility] [address] [address] Nov, [facility] [address] [address] Nov, Schizoaffective disorder, depressive typ e F25.1 [facility] [address] [address] Nov, Constipation by delayed colonic transit K59.01 [facility] [address] [address] Oct, [facility] [address] [address] Oct, [facility] [address] [address] Oct, [facility] [address] [address] Oct, Chronic obstructive pulmonary disease, u nspecified COPD type J44.9 [facility] [address] [address] Oct, [facility] [address] [address] Sep, Paranoid schizophrenia F20.0 [facility] [address] [address] Sep, [facility] [address] [address] Sep, [facility] [address] [address] Sep, Encounter for immunization Z23 [facility] [address] [address] Sep, [facility] [address] [address] Sep, Closed fracture of right ankle, sequela S82.891S ; Morbid obesity E66.01 and Heat rash L74.0 [facility] [address] [address] Sep, Schizoaffective disorder, depressive typ e F25.1 [facility] [address] [address] Sep, [facility] [address] [address] Sep, [facility] [address] [address] Sep, [facility] [address] [address] Sep, [facility] [address] [address] Sep, [facility] [address] [address] Sep, [facility] [address] [address] Sep, [facility] [address] [address] Sep, [facility] [address] [address] Sep, [facility] [address] [address] August, Paranoid schizophrenia F20.0 [facility] [address] [address] August, [facility] [address] [address] August, [facility] [address] [address] August, [facility] [address] [address] August, Type 2 diabetes mellitus without complic ation, without long-term current use of insulin E11.9 ; Closed fracture of right ankle, initial encounter S82.891A ; Constipation by delayed colonic transit K59.01 ; Osteoporosis with pathological fracture, initial encounter M80.00XA ; Encounter for immunization Z23 and Morbid obesity E66.01 [place] [address] [address] August, [place] [address] [address] August, [place] [address] [address] August, Acquired deformity of musculoskeletal sy stem, unspecified M95.9 [place] [address] [address] August, Paranoid schizophrenia F20.0 [facility] [address] [facility] [place] [address] August, [place] [address] [address] Jul, [place] [address] [address] Jul, Diabetic polyneuropathy associated with type 2 diabetes mellitus E11.42 ; Paranoid schizophrenia F20.0 ; Preoperative clearance Z01.818 and Morbid obesity E66.01 [facility] [address] [address] Jul, Paranoid schizophrenia F20.0 [facility] [address] [address] Jul, [facility] [address] [address] Jul, [place] [address] [address] Jul, Cigarette nicotine dependence without co mplication F17.210 [place] [address] [address] Jul, Type 2 diabetes mellitus without complic ation, without long-term current use of insulin E11.9 and Hypothyroidism (acquired) E03.9 [place] [address] [address] Jul, Encounter for Medicare annual wellness e xam Z00.00 ; Morbid obesity due to excess calories E66.01 ; Diabetic polyneuropathy associated with type 2 diabetes mellitus E11.42 ; Chronic obstructive pulmonary disease, unspecified COPD type J44.9 ; Schizoaffective disorder, depressive type F25.1 ; Hypothyroidism (acquired) E03.9 and Morbid obesity E66.01 [place] [address] [address] Jun, Gastroesophageal reflux disease without esophagitis K21.9 [place] [address] [address] Jun, Paranoid schizophrenia F20.0 [place] [address] [address] Jun, Schizoaffective disorder, depressive typ e F25.1 [place] [address] [address] Jun, [place] [address] [address] Jun, Schizoaffective disorder, depressive typ e F25.1 [place] [address] [address] Jun, Cigarette nicotine dependence without co mplication F17.210 [place] [address] [address] Jun, Type 2 diabetes mellitus without complic ation, without long-term current use of insulin E11.9 [facility] [address] [address] 15 Jun, 2018 [facility] [address] [address] Jun, [facility] [address] [address] Jun, [facility] [address] [address] Jun, [facility] [address] [address] Jun, [place] [address] [address] Jun, Paranoid schizophrenia F20.0 ; Type 2 di abetes mellitus without complication, without long-term current use of insulin E11.9 ; Hypothyroidism (acquired) E03.9 and Morbid obesity E66.01 [place] [address] [address] May, Paranoid schizophrenia F20.0 [place] [address] [address] 20 May, 2018 Hypothyroidism (acquired) E03.9 and Dysl ipidemia E78.5 [place] [address] [address] May, Cigarette nicotine dependence without co mplication F17.210 [place] [address] [address] May, [place] [address] [place] [address] 14 May, 2018 Type 2 diabetes mellitus without complic ation, without long-term current use of insulin E11.9 ; Essential hypertension I10 ; Hypothyroidism (acquired) E03.9 and Dyslipidemia E78.5 [place] [address] [address] May, [facility] [address] [address] May, Schizoaffective disorder, depressive typ e F25.1 [place] [address] [address] May, Paranoid schizophrenia F20.0 [place] [address] [address] May, [facility] [address] [place] [address] 07 May, 19 [place] [address] [address] May, [place] [address] [address] May, Type 2 diabetes mellitus without complic ation, without long-term current use of insulin E11.9 ; Essential hypertension I10 ; Hypothyroidism (acquired) E03.9 and Dyslipidemia E78.5 [place] [address] [address] May, [place] [address] [address] May, Acute nasopharyngitis J00 [facility] [address] [facility] [id number] [address] [place] [address] May, Allergic rhinitis, unspecifi ed seasonality, unspecified trigger J30.9 [facility] [address] [address] May, [facility] [address] [address] Apr, Schizoaffective disorder, depressive typ e F25.1 [facility] [address] [address] Apr, [facility] [address] [address] Apr, Cigarette nicotine dependence without co mplication F17.210 [place] [address] [address] Apr, [place] [address] [address] Apr, Cigarette nicotine dependence without co mplication F17.210 [place] [address] [address] Apr, [place] [address] [address] Apr, Migraine without aura and without status migrainosus, not intractable G43.009 [place] [address] [address] Apr, Migraine without aura and without status migrainosus, not intractable G43.009 [place] [address] [address] Mar, Schizoaffective disorder, depressive typ e F25.1 ; BMI 45.0-49.9, adult Z68.42 and BMI 40.0-44.9, adult Z68.41 [place] [address] [address] Mar, Primary insomnia F51.01 [place] [address] [address] Mar, [place] [address] [address] Feb, Primary insomnia F51.01 [place] [address] [address] 08 Feb, 2018 [place] [address] [address] 24 Jan, 2018 Schizoaffective disorder, depressive typ e F25.1 and BMI 45.0-49.9, adult Z68.42 [place] [address] [address] Jan, [place] [address] [address] Jan, Type 2 diabetes mellitus with diabetic n europathic arthropathy, without long-term current use of insulin E11.610 ; Menopausal syndrome (hot flashes) N95.1 ; BMI 40.0-44.9, adult Z68.41 and Morbid obesity E66.01 [place] [address] [address] Jan, Paranoid schizophrenia F20.0 [place] [address] [address] Jan, [place] [address] [address] Jan, Schizoaffective disorder, depressive typ e F25.1 [place] [address] [address] Jan, [place] [address] [address] Jan, Chronic obstructive pulmonary disease, u nspecified COPD type J44.9 ; BMI 45.0-49.9, adult Z68.42 ; Type 2 diabetes mellitus without complication, without long-term current use of insulin E11.9 ; Hypothyroidism (acquired) E03.9 ; Encounter for immunization Z23 ; Gastroesophageal reflux disease without esophagitis K21.9 ; Primary insomnia F51.01 and Acute nasopharyngitis J00 [place] [address] [address] Dec, [place] [address] [address] Dec, Schizoaffective disorder, depressive typ e F25.1 and BMI 45.0-49.9, adult Z68.42 [place] [address] [address] Dec, [place] [address] [address] 18 Dec, 2017 [facility] [address] [address] 18 Dec, 2017 Acute non-recurrent frontal sinusitis J0 1.10 [facility] [address] [address] 18 Dec, 2017 Acute non-recurrent frontal sinusitis J0 1.10 ; Weakness of left leg R29.898 ; At high risk for falls Z91.81 and BMI 45.0-49.9, adult Z68.42 [facility] [address] [address] 17 Dec, 2017 [facility] [address] [address] Dec, [facility] [address] [address] Dec, Schizoaffective disorder, depressive typ e F25.1 [facility] [address] [facility] [id number] [address] [place] [address] Dec, Acute nasopharyngitis J00 [facility] [address] [address] 05 Dec, 2017 Schizoaffective disorder, depressive typ e F25.1 [facility] [address] [address] Dec, [facility] [address] [address] Nov, Schizoaffective disorder, depressive typ e F25.1 and BMI 45.0-49.9, adult Z68.42 [facility] [address] [address] Nov, [facility] [address] [address] Nov, [facility] [address] [address] Nov, Schizoaffective disorder, depressive typ e F25.1 [place] [address] [address] 16 Nov, 2017 Well woman exam Z01.419 ; BMI 45.0-49.9, adult Z68.42 ; Screening breast examination Z12.31 and Dietary counseling and surveillance Z71.3 [place] [address] [address] 10 Nov, 2017 Paranoid schizophrenia F20.0 [place] [address] [address] 09 Nov, 2017 Gastroesophageal reflux disease, esophag itis presence not specified K21.[address] [address] Oct, Paranoid schizophrenia F20.0 [place] [address] [id number] [place] [address] Oct, Chronic pain syndrome G89.4 and Schizoaffective disorder, depressive type F25.1 [place] [address] [address] 18 Oct, 2017 Chronic pain syndrome G89.4 and Schizoaf fective disorder, depressive type F25.1 [place] [address] [address] 16 Oct, 2017 Type 2 diabetes mellitus without complic ation, without long-term current use of insulin E11.9 [place] [address] [address] 12 Oct, 2017 Essential hypertension I10 and DM neuro manif type II E11.[address] [address] Oct, [address] [address] 11 Oct, 2017 Schizoaffective disorder, depressive typ e F25.1 and BMI 45.0-49.9, adult Z68.42 [place] [address] [address] Oct, [facility] [address] [address] Oct, Paranoid schizophrenia F20.0 [place] [address] [address] Oct, Type 2 diabetes mellitus with diabetic n europathic arthropathy, without long-term current use of insulin E11.610 ; Essential hypertension I10 ; Hypothyroidism (acquired) E03.9 ; Chronic obstructive pulmonary disease, unspecified COPD type J44.9 and Diabetic polyneuropathy associated with type 2 diabetes mellitus E11.42 [place] [address] [address] Sep, Paranoid schizophrenia F20.0 [place] [address] [address] Sep, Paranoid schizophrenia F20.0 and BMI 45. 0-49.9, adult Z68.42 [place] [address] [address] Sep, Schizoaffective disorder, depressive typ e F25.1 [place] [address] [address] Sep, [place] [address] [address] Sep, Paranoid schizophrenia F20.0 [place] [address] [address] Sep, [place] [address] [address] Sep, Hypothyroidism (acquired) E03.9 [place] [address] [address] Sep, [place] [address] [address] August, Schizoaffective disorder, depressive typ e F25.1 [place] [address] [address] August, [facility] [address] [address] August, [place] [address] [address] August, [place] [address] [address] August, Paranoid schizophrenia F20.0 [place] [address] [address] August, History of lupus Z87.39 and Chronic pain syndrome G89.4 [place] [address] [address] August, [facility] [address] [facility] [id number] [address] [place] [address] August, Seasonal allergic rhinitis, unspecified trigger J30.2 and BMI 45.0-49.9, adult Z68.42 [place] [address] [address] Jul, Schizoaffective disorder, depressive typ e F25.1 [place] [address] [address] Jul, [place] [address] [address] Jul, Hypothyroidism (acquired) E03.9 [place] [address] [address] Jul, Chronic obstructive pulmonary disease, u nspecified COPD type J44.9 and Type 2 diabetes mellitus without complication, without long-term current use of insulin E11.9 [place] [address] [address] Jul, Paranoid schizophrenia F20.0 [place] [address] [address] Jun, Hypothyroidism (acquired) E03.9 and Seas onal allergic rhinitis due to pollen J30.1 [facility] [address] [facility] [id number] [address] [place] [address] Jun, Shortness of breath at rest R06.02 ; COPD exacerbation J44.1 and BMI 45.0-49.9, adult Z68.42 [facility] [address] [address] Jun, [facility] [address] [place] [address] Jun, Paranoid schizophrenia F20.0 ; Depressio n with anxiety F41.8 and BMI 45.0-49.9, adult Z68.42 [facility] [address] [place] [address] Jun, Schizoaffective disorder, depressive typ e F25.1 [facility] [address] [id number] Jun, Dental caries K02.9 [place] [address] [address] Jun, Paranoid schizophrenia F20.0 [facility] [address] [place] [id number] May, Migraine without aura and without status migrainosus, not intractable G43.009 ; DM neuro manif type II E11.49 and Type 2 diabetes mellitus without complication, without long-term current use of insulin E11.9 [facility] [address] [place] [id number] May, Migraine without aura and without status migrainosus, not intractable G43.009 [place] [address] [address] May, Depression with anxiety F41.8 [facility] [address] [id number] May, [facility] [address] [id number] May, [place] [address] [address] 12 May, 2017 [place] [address] [address] 09 May, 2017 Hypothyroidism (acquired) E03.9 [place] [address] [address] 08 May, 2017 Paranoid schizophrenia F20.0 [place] [address] [address] 08 May, 2017 Type 2 diabetes mellitus [...] N32.81 and Controlled substance agreement signed Z79.[address] [address] 02 May, 2017 Controlled substance agreement signed Z7 9.899 [place] [id number] [place] [address] Apr, [facility] [address] [id number] [place] [id number] Apr, Dental examination Z01.20 [place] [address] [address] Apr, Paranoid schizophrenia F20.0 [place] [address] [address] Apr, Hypertension, unspecified type I10 [place] [address] [address] Apr, Paranoid schizophrenia F20.0 [facility] [id number] [place] [address] Apr, [facility] [address] [address] Apr, Tobacco abuse Z72.0 [facility] [address] [address] Apr, [facility] [address] [address] Mar, [facility] [address] [address] Mar, Paranoid schizophrenia F20.0 and BMI 45. 0-49.9, adult Z68.42 [place] [address] [address] Mar, Schizoaffective disorder, depressive typ e F25.1 [place] [address] [address] Mar, [facility] [address] [address] Mar, Hypothyroidism, unspecified type E03.9 [place] [id number] [place] [address] Mar, Schizoaffective disorder, depressive typ e F25.1 [facility] [address] [facility] [id number] [address] [place] [address] Feb, Gastroenteritis K52.9 and BM I 45.0-49.9, adult Z68.42 [facility] [address] [address] Feb, [facility] [address] [address] Feb, [facility] [address] [address] Feb, [facility] [address] [address] Feb, [place] [address] [address] Feb, Paranoid schizophrenia F20.0 [place] [address] [address] Feb, Gastroesophageal reflux disease without esophagitis K21.9 ; Other seasonal allergic rhinitis J30.2 ; Other allergic rhinitis J30.89 ; Tobacco abuse Z72.0 and BMI 40.0-44.9, adult Z68.[address] [address] Feb, Onychomycosis B35.1 ; Callus of foot L84 and DM neuro manif type II E11.[address] [address] Jan, Chronic allergic rhinitis J30.[address] [address] Jan, [address] [address] Jan, Schizoaffective disorder, depressive typ e F25.[address] [address] Jan, [facility] [address] [place] [id number] [address] [place] [address] Jan, Sore throat J02.9 and Season al allergic rhinitis due to other allergic trigger J30.89 [place] [address] [address] Jan, [address] [address] Jan, [facility] [address] [place] [id number] [address] [place] [address] Jan, Chronic allergic rhinitis J3 0.[address] [address] Dec, Paranoid schizophrenia F20.0 ; Primary i nsomnia F51.01 and Schizoaffective disorder, depressive type F25.1 [place] [address] [address] Dec, Chronic pain syndrome G89.4 ; Cervicalgi a of xlzrwnrw-hpufbqa-yoadv region M54.2 ; Menopausal syndrome (hot flashes) N95.1 and Encounter for immunization Z23 [place] [address] [address] 14 Dec, 2016 [place] [address] [address] Dec, [place] [address] [address] 08 Dec, 2016 Paranoid schizophrenia F20.0 [place] [address] [address] Dec, Schizoaffective disorder, depressive typ e F25.1 [place] [address] [address] Nov, Hypothyroidism, unspecified type E03.9 [facility] [address] [facility] [id number] [address] [place] [address] Nov, Acute seasonal allergic rhin itis due to other allergen J30.89 [place] [address] [address] Nov, [place] [address] [address] Nov, Hypothyroidism, unspecified type E03.9 a nd Other elevated white blood cell (WBC) count D72.828 [place] [address] [address] Nov, Schizoaffective disorder, depressive typ e F25.1 [place] [address] [address] Nov, Paranoid schizophrenia F20.0 [place] [address] [address] Nov, Type 2 diabetes mellitus without complic ation, without long-term current use of insulin E11.9 ; Morbid obesity due to excess calories E66.01 and Chronic pain syndrome G89.4 [place] [address] [address] Oct, Paranoid schizophrenia F20.0 [place] [address] [address] Oct, [place] [address] [address] Oct, Schizoaffective disorder, depressive typ e F25.1 [place] [address] [address] Oct, Hypothyroidism, unspecified type E03.9 a nd Other elevated white blood cell (WBC) count D72.828 [place] [address] [address] Oct, Morbid obesity due to excess calories E6 6.01 ; Chronic obstructive pulmonary disease, unspecified COPD type J44.9 ; History of lupus Z87.39 ; Hypothyroidism, unspecified type E03.9 ; Gastroesophageal reflux disease without esophagitis K21.9 ; Primary insomnia F51.01 and Chronic pain syndrome G89.4 [place] [address] [address] Sep, [place] [address] [address] Sep, [place] [address] [address] Sep, [place] [address] [address] Sep, Paranoid schizophrenia F20.0 [place] [address] [address] Sep, [place] [address] [address] Sep, Paranoid schizophrenia F20.0 [facility] [address] [address] Sep, [facility] [address] [address] August, Paranoid schizophrenia F20.0 [place] [address] [address] Jul, [place] [address] [address] Jul, Type 2 diabetes mellitus without complic ation, without long-term current use of insulin E11.9 ; Morbid obesity due to excess calories E66.01 ; Depression with anxiety F41.8 ; Hypothyroidism, unspecified type E03.9 ; Seasonal allergic rhinitis due to other allergic trigger J30.89 ; Pain, dental K08.89 and Gastroesophageal reflux disease without esophagitis K21.9 [facility] [address] [id number] [place] [id number] Jul, Dental examination Z01.20 [place] [address] [address] 07 Jul, 2016 Paranoid schizophrenia F20.0 [place] [address] [address] 13 Jun, 2016 Paranoid schizophrenia F20.0 and Depress ion with anxiety F41.8 [place] [id number] [place] [address] Jun, Paranoid schizophrenia F20.0 and Depress ion with anxiety F41.8 [place] [id number] [place] [address] Jun, [facility] [address] [address] Jun, [facility] [address] [facility] [id number] [address] [place] [address] 08 Jun, 2016 Seasonal allergic rhinitis d ue to other allergic trigger J30.89 [facility] [place] [address] [address] May, Sore throat J02.9 ; Other vi ral agents as the cause of diseases classified elsewhere B97.89 and Acute upper respiratory infection, unspecified J06.9 [place] [address] [address] May, Paranoid schizophrenia F20.0 and Depress ion with anxiety F41.8 [place] [address] [address] Apr, Other seasonal allergic rhinitis J30.2 [place] [address] [address] Apr, Paranoid schizophrenia F20.0 and Depress ion with anxiety F41.8 [facility] [place] [address] [address] Apr, Bronchitis J40 and Sore thro at J02.9 [place] [address] [address] Apr, Type 2 diabetes mellitus without complic ation, without long-term current use of insulin E11.9 [facility] [place] [address] [address] Apr, Bronchitis J40 [place] [address] [address] Apr, [place] [address] [address] Apr, [address] [address] Mar, Type 2 diabetes mellitus without complic [...] Other seasonal allergic rhinitis J30.2 [place] [address] [address] 09 Mar, 2016 Paranoid schizophrenia F20.0 and Depress ion with anxiety F41.8 [place] [address] [id number] Feb, [place] [address] [address] Feb, [place] [address] [address] Feb, [place] [address] [address] Feb, [place] [address] [address] Feb, Type 2 diabetes mellitus without complic ation, without long-term current use of insulin E11.9 ; ARIAS on CPAP G47.33 and Preoperative evaluation to rule out surgical contraindication Z01.818 [place] [address] [address] Feb, Paranoid schizophrenia F20.0 and Depress ion with anxiety F41.8 [place] [address] [address] Jan, [place] [address] [address] Jan, Paranoid schizophrenia F20.0 and Depress ion with anxiety F41.8 [place] [address] [address] Jan, [address] [address] Jan, Muscle strain T14.8 [place] [address] [address] Jan, Paranoid schizophrenia F20.0 [facility] [address] [address] Jan, [facility] [address] [address] Jan, Paranoid schizophrenia F20.0 and Depress ion with anxiety F41.8 [facility] [address] [address] Jan, [facility] [address] [address] Jan, [facility] [address] [address] Dec, [facility] [address] [address] Dec, Paranoid schizophrenia F20.0 [facility] [address] [address] Dec, Paranoid schizophrenia F20.0 and Depress ion with anxiety F41.8 [facility] [address] [address] Nov, [facility] [address] [address] Nov, Paranoid schizophrenia F20.0 [facility] [address] [address] Nov, Paranoid schizophrenia F20.0 and Depress ion with anxiety F41.8 [facility] [address] [address] Nov, Type 2 diabetes mellitus without complic ation, without long-term current use of insulin E11.9 ; Paranoid schizophrenia F20.0 ; Chronic obstructive pulmonary disease, unspecified COPD type J44.9 ; Morbid obesity due to excess calories E66.01 and Parkinsonian tremor G20 [facility] [address] [address] Nov, [facility] [address] [address] Oct, Paranoid schizophrenia F20.0 [place] [address] [address] Oct, Paranoid schizophrenia F20.0 [place] [address] [address] Oct, Paranoid schizophrenia F20.0 and Depress ion with anxiety F41.8 [place] [address] [address] Oct, [place] [address] [address] Oct, Paranoid schizophrenia F20.0 and Depress ion with anxiety F41.8 [place] [address] [address] Oct, Nasal sore J34.89 [place] [address] [address] Oct, Type 2 diabetes mellitus without complic ation, without long-term current use of insulin E11.9 ; Depression with anxiety F41.8 ; Hypothyroidism, unspecified type E03.9 and History of lupus Z87.39 [place] [address] [address] Oct, [place] [address] [address] Oct, Type 2 diabetes mellitus without complic [...] edema R60.9 and History of lupus Z87.39 [facility] [address] [id number] [place] [address] Feb, [facility] [id number] [place] [address] Jan, [facility] [id number] [place] [address] Jan, [facility] [id number] [place] [address] Jan, [facility] [id number] [place] [address] Dec, [facility] [id number] [place] [address] Nov, [facility] [id number] [place] [address] Nov, [facility] [id number] [place] [address] Oct, [facility] [id number] [place] [address] Oct, [facility] [id number] [place] [address] Oct, [facility] [id number] [place] [address] Sep, Allergic rhinitis 477.9 [facility] [id number] [place] [address] Sep, Rhinitis, allergic 477.9 [facility] [id number] [place] [address] Sep, Rhinitis, allergic 477.9 [facility] [id number] [place] [address] Sep, [facility] [id number] [place] [address] August, [facility] [id number] [place] [address] August, [facility] [place] [facility] [address] [facility] [id number] [place] [address] August, [facility] [place] [facility] [address] [id number] [place] [address] 28 Jul, 2014 [facility] [place] [facility] [address] [facility] [id number] [place] [address] 14 Jul, 2014 [facility] [place] [facility] [address] [id number] [place] [address] Jul, [facility] [place] [facility] [address] [id number] [place] [address] Jun, [facility] [place] [facility] [address] [id number] [place] [address] Jun, [facility] [place] [facility] [address] [id number] [place] [address] Jun, [facility] [place] [facility] [address] [id number] [place] [address] Jun, [facility] [place] [facility] [address] [id number] [place] [address] Jun, [facility] [place] [facility] [address] [id number] [place] [address] Jun, [facility] [place] [facility] [address] [id number] [place] [address] Jun, [facility] [place] [facility] [address] [id number] [place] [address] Jun, [facility] [place] [facility] [address] [id number] [place] [address] May, [facility] [place] [facility] [address] [facility] [id number] [place] [address] May, [facility] [place] [facility] [address] [id number] [place] [address] May, [facility] [place] [facility] [address] [id number] [place] [address] May, [facility] [place] [facility] [address] [id number] [place] [address] Apr, [facility] [place] [facility] [address] [facility] [id number] [place] [address] Mar, [facility] [place] [facility] [address] [facility] [id number] [place] [address] Mar, [facility] [place] [facility] [address] [id number] [place] [address] Mar, [facility] [place] [facility] [address] [id number] [place] [address] Mar, [facility] [place] [facility] [address] [id number] [place] [address] Mar, [facility] [place] [facility] [address] [id number] [place] [address] Mar, [facility] [place] [facility] [address] [id number] [place] [address] Mar, [facility] [place] [facility] [address] [id number] [place] [address] Mar, [facility] [place] [facility] [address] [id number] [place] [address] Mar, [facility] [place] [facility] [address] [id number] [place] [address] Feb, [facility] [place] [facility] [address] [id number] [place] [address] Feb, [facility] [place] [facility] [address] [id number] [place] [address] Feb, [facility] [place] [facility] [address] [id number] [place] [address] Feb, [facility] [place] [facility] [address] [id number] [place] [address] Feb, [facility] [place] [facility] [address] [id number] [place] [address] Feb, [facility] [place] [facility] [address] [id number] [place] [address] Feb, [facility] [place] [facility] [address] [facility] [id number] [place] [address] 12 Feb, 2014 [facility] [place] [facility] [address] [facility] [id number] [place] [address] 23 Jan, 2014 [facility] [place] [facility] [address] [facility] [id number] [place] [address] 23 Jan, 2014 [facility] [place] [facility] [address] [id number] [place] [address] 16 Jan, 2014 [facility] [place] [facility] [address] [facility] [id number] [place] [address] 16 Jan, 2014 [facility] [place] [facility] [address] [id number] [place] [address] 15 Jan, 2014 [facility] [place] [facility] [address] [id number] [place] [address] 15 Jan, 2014 [facility] [place] [facility] [address] [id number] [place] [address] 14 Jan, 2014 [facility] [place] [facility] [address] [id number] [place] [address] 14 Jan, 2014 [facility] [place] [facility] [address] [id number] [place] [address] 14 Jan, 2014 [facility] [place] [facility] [address] [id number] [place] [address] 14 Jan, 2014 [facility] [place] [facility] [address] [id number] [place] [address] 18 Dec, 2013 [facility] [place] [facility] [address] [id number] [place] [address] 18 Dec, 2013 [facility] [place] [facility] [address] [facility] [id number] [place] [address] 10 Dec, 2013 [facility] [place] [facility] [address] [id number] [place] [address] 10 Dec, 2013 [facility] [place] [facility] [address] [id number] [place] [address] Nov, [facility] [place] [facility] [address] [id number] [place] [address] Nov, [facility] [place] [facility] [address] [facility] [id number] [place] [address] Nov, [facility] [place] [facility] [address] [id number] [place] [address] Nov, [facility] [place] [facility] [address] [id number] [place] [address] Nov, [facility] [place] [facility] [address] [id number] [place] [address] Oct, [facility] [place] [facility] [address] [facility] [id number] [place] [address] Oct, [facility] [place] [facility] [address] [id number] [place] [address] Oct, [facility] [place] [facility] [address] [id number] [place] [address] Oct, [facility] [place] [facility] [address] [id number] [place] [address] Sep, [facility] [place] [facility] [address] [id number] [place] [address] Sep, [facility] [place] [facility] [address] [id number] [place] [address] Sep, [facility] [place] [facility] [address] [id number] [place] [address] Sep, [facility] [place] [facility] [address] [id number] [place] [address] Sep, [facility] [place] [facility] [address] [id number] [place] [address] Sep, [facility] [place] [facility] [address] [id number] [place] [address] Sep, [facility] [place] [facility] [address] [id number] [place] [address] Sep, [facility] [place] [facility] [address] [id number] [place] [address] August, [facility] [place] [facility] [address] [id number] [place] [address] August, [facility] [place] [facility] [address] [facility] [id number] [facility] [place] [address] August, [facility] [place] [facility] [address] [facility] [id number] [facility] [place] [address] August, [facility] [place] [facility] [address] [id number] [facility] [place] [address] August, [facility] [place] [facility] [address] [facility] [place] [id number] [place] [address] August, [facility] [place] [facility] [address] [facility] [place] [id number] [place] [address] August, [facility] [place] [facility] [address] [facility] [place] [id number] [place] [address] Jul, [facility] [place] [facility] [address] [id number] [facility] [place] [address] Jul, [facility] [place] [facility] [address] [id number] [place] [address] Jul, [facility] [place] [facility] [address] [facility] [place] [id number] [place] [address] Jul, [facility] [place] [facility] [address] [id number] [place] [address] Jul, [facility] [place] [facility] [address] [id number] [facility] [place] [address] Jul, [facility] [place] [facility] [address] [id number] [facility] [place] [address] Jul, [facility] [place] [facility] [address] [facility] [place] [id number] [place] [address] Jul, [facility] [place] [facility] [address] [id number] [facility] [place] [address] Jul, [facility] [place] [facility] [address] [facility] [place] [id number] [facility] [place] [address] Jul, [facility] [place] [facility] [address] [id number] [facility] [place] [address] Jul, [facility] [place] [facility] [address] [id number] [place] [address] Jul, [facility] [place] [facility] [address] [id number] [place] [address] Jun, [facility] [place] [facility] [address] [id number] [place] [address] Jun, [facility] [place] [facility] [address] [id number] [place] [address] Jun, [facility] [place] [facility] [address] [id number] [place] [address] Jun, [facility] [place] [facility] [address] [id number] [place] [address] Jun, [facility] [place] [facility] [address] [id number] [place] [address] May, [facility] [place] [facility] [address] [id number] [place] [address] May, [facility] [place] [facility] [address] [id number] [place] [address] May, [facility] [place] [facility] [address] [id number] [place] [address] May, [facility] [place] [facility] [address] [id number] [place] [address] May, [facility] [place] [facility] [address] [id number] [place] [address] May, [facility] [place] [facility] [address] [id number] [place] [address] May, [facility] [place] [facility] [address] [id number] [place] [address] May, [facility] [place] [facility] [address] [id number] [place] [address] Mar, [facility] [place] [facility] [address] [id number] [place] [address] Mar, [facility] [place] [facility] [address] [id number] [place] [address] Mar, [facility] [place] [facility] [address] [id number] [place] [address] Mar, [facility] [address] [id number] [place] [address] Mar, [facility] [address] [id number] [place] [address] Mar, [facility] [address] [id number] [place] [address] Feb, [facility] [address] [id number] [place] [address] Feb, [facility] [address] [id number] [place] [address] Jan, [facility] [address] [id number] [place] [address] Jan, [facility] [address] [id number] [place] [address] Jan, [facility] [address] [id number] [place] [address] Jan, [facility] [address] [id number] [place] [address] Jan, [facility] [address] [id number] [place] [address] Jan, [facility] [address] [id number] [place] [address] Jan, [facility] [address] [id number] [place] [address] Jan, [facility] [address] [id number] [place] [address] 08 Jan, 2013 [facility] [address] [id number] [place] [address] Jan, [facility] [address] [id number] [place] [address] 16 Dec, 2012 [facility] [address] [id number] [place] [address] Nov, [facility] [address] [id number] [place] [address] Nov, [facility] [id number] [place] [address] Nov, [facility] [id number] [place] [address] Oct, [facility] [id number] [place] [address] Oct, [facility] [id number] [place] [address] August, [facility] [id number] [place] [address] Apr, [facility] [id number] [place] [address] Apr, [facility] [id number] [place] [address] Feb, [facility] [id number] [place] [address] Feb, [facility] [id number] [place] [address] Dec, [facility] [id number] [place] [address] Dec, [facility] [id number] [place] [address] Oct, [facility] [id number] [place] [address] Oct, [facility] [id number] [place] [address] Oct, [facility] [id number] [place] [address] Jul, IMMUNIZATIONS No Known Immunizations SOCIAL HISTORY [...] hospitalizations for psychosis/mental illness, last one in [facility] 4 years ago Hospitalization History broken ankle 08/2018
--- OUTSIDE RECORDS SUMMARY | 2019-07-07 04:12 | XMS REPORT ---
Author Author Alayna ROJAS Organization [facility] Address [address] [place] [address] Care Team Providers Care Society Reporter Name Role Phone RADHA ROJAS Unavailable PROBLEMS Type Condition ICD9-CM Code XDA64-ZA Code Onset Dates Condition S tatus SNOMED Code Problem Morbid obesity due to excess calories E66.01 Active 608967340 Problem Paranoid schizophrenia F20.0 Active 90719795 Problem Chronic pain syndrome G89.4 Active 716857428 Problem History of lupus Z87.39 Active 312 865283 Problem Type 2 diabetes mellitus wit hout complication, without long-term current use of insulin E11.9 Active 867190050 Problem Gastroesophageal reflux disease without esophagitis K21.9 Active 426824482 Problem OAB (overactive bladder) N32.81 Activ e 335199951 Problem Hypothyroidism (acquired) E03.9 Acti ve 100730743 Problem Essential hypertension I10 Active 71972448 Problem Chronic obstructive pulmonary disease, unspecified COPD ty pe J44.9 Active 57029721 Problem Depression with anxiety F41.8 Active 525510674 Problem Menopausal syndrome (hot flashes) N95.1 Active 961022923 Problem DM neuro manif type II E11.49 Active 23597806 Problem Other seasonal allergic rhinitis J30.2 Active 824570721 Problem Other allergic rhinitis J30.89 Active 565041825 Problem Gastroesophageal reflux disease, esophagitis pre sence not specified K21.9 Active 562320460 Problem Tobacco abuse Z72.0 Active 497454 000 Problem Dyslipidemia E78.5 Active 6315866 07 Problem Migraine without aura and without status migrain osus, not intractable G43.009 Active 654328660 Problem COPD exacerbation J44.1 Active 19 3572399 Problem Seasonal allergic rhinitis due to pollen J30.1 Active 00386760 Problem Diabetic polyneuropathy associated with type 2 d iabetes mellitus E11.42 Active 590365826 Problem BMI 31.0-31.9,adult Z68.31 Active 652231011 Problem Schizoaffective disorder, depressive type F25.1 Active 52134772 Problem Vaginal dryness, menopausal N95.1 Ac tive 97507663 Problem Seasonal allergic rhinitis due to other allergic trigger J30.89 Active 371593631 Problem Primary insomnia F51.01 Active 397 2004 Problem 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, without long-term current use of insulin E11.610 Active 891917300 Problem Cigarette nicotine dependence without complication F17.210 Active 18451751 Problem Allergic rhinitis, unspecified seasonality, unspecifie d trigger J30.9 Active 68148861 Problem Constipation by delayed colonic transit K59.01 Active 70106748 ALLERGIES No Information ENCOUNTERS Encounter Location Date Diagnosis [place] [address] [address] 18 Mar, 2019 [place] [address] [place] [id number] [place] [address] Mar, [place] [address] [address] Dec, Schizoaffective disorder, de pressive type F25.1 [facility] [address] [facility] [id number] [address] [place] [address] Dec, [facility] [address] [place] [id number] [address] [place] [address] Dec, [place] [id number] [place] [id number] [place] [address] Dec, Type 2 diabetes mellitus wit h [...] abuse Z72.0 and Encounter for immunization Z23 [place] [id number] [place] [id number] [place] [address] Dec, Encounter for immunization Z 23 [facility] [address] [id number] [address] [place] [address] Dec, [facility] [address] [id number] [address] [place] [address] 13 Dec, 2018 [facility] [address] [id number] [address] [place] [address] Dec, [facility] [address] [id number] [address] [place] [address] Dec, [facility] [address] [id number] [address] [place] [address] Dec, [facility] [address] [id number] [address] [place] [address] Dec, [facility] [address] [id number] [address] [place] [address] Nov, Paranoid schizophrenia F20.0 [facility] [address] [id number] [address] [place] [address] Nov, [facility] [address] [id number] [address] [place] [address] Nov, [facility] [address] [id number] [address] [place] [address] Nov, [facility] [address] [id number] [address] [place] [address] Nov, Encounter for comprehensive diabetic foot examination, type 2 diabetes mellitus E11.9 and Morbid obesity E66.01 [facility] [address] [id number] [address] [place] [address] Nov, [facility] [address] [id number] [address] [place] [address] Nov, [facility] [address] [id number] [address] [place] [address] Nov, [facility] [address] [id number] [address] [place] [address] Nov, Schizoaffective disorder, de pressive type F25.1 [facility] [address] [facility] [id number] [address] [place] [address] Nov, Constipation by delayed colo james transit K59.01 [facility] [address] [facility] [id number] [address] [place] [address] Oct, [facility] [address] [facility] [id number] [address] [place] [address] Oct, [facility] [address] [facility] [id number] [address] [place] [address] Oct, [facility] [address] [facility] [id number] [address] [place] [address] Oct, Chronic obstructive pulmonar y disease, unspecified COPD type J44.9 [facility] [address] [facility] [id number] [address] [place] [address] Oct, [facility] [address] [place] [id number] [address] [place] [address] Sep, Paranoid schizophrenia F20.0 [facility] [address] [facility] [id number] [address] [place] [address] Sep, [facility] [address] [place] [id number] [address] [place] [address] Sep, [facility] [address] [facility] [id number] [address] [place] [address] Sep, Encounter for immunization Z 23 [facility] [address] [facility] [id number] [address] [place] [address] Sep, [facility] [address] [place] [id number] [address] [place] [address] Sep, Closed fracture of right ank le, sequela S82.891S ; Morbid obesity E66.01 and Heat rash L74.0 [facility] [address] [facility] [id number] [address] [place] [address] Sep, Schizoaffective disorder, de pressive type F25.1 [facility] [address] [id number] [address] [place] [address] Sep, [facility] [address] [id number] [address] [place] [address] Sep, [facility] [address] [id number] [address] [place] [address] Sep, [facility] [address] [id number] [address] [place] [address] Sep, [facility] [address] [id number] [address] [place] [address] Sep, [facility] [address] [id number] [address] [place] [address] Sep, [facility] [address] [id number] [address] [place] [address] Sep, [facility] [address] [id number] [address] [place] [address] Sep, [facility] [address] [id number] [address] [place] [address] Sep, [facility] [address] [id number] [address] [place] [address] August, Paranoid schizophrenia F20.0 [facility] [address] [id number] [address] [place] [address] August, [facility] [address] [id number] [address] [place] [address] August, [facility] [address] [id number] [address] [place] [address] August, [facility] [address] [id number] [address] [place] [address] August, Type 2 diabetes mellitus wit hout complication, without long-term current use of insulin E11.9 ; Closed fracture of right ankle, initial encounter S82.891A ; Constipation by delayed colonic transit K59.01 ; Osteoporosis with pathological fracture, initial encounter M80.00XA ; Encounter for immunization Z23 and Morbid obesity E66.01 [facility] [address] [facility] [id number] [address] [place] [address] August, [facility] [address] [facility] [id number] [address] [place] [address] August, [facility] [address] [place] [id number] [place] [address] August, Acquired deformity of muscul oskeletal system, unspecified M95.9 [facility] [address] [facility] [id number] [address] [place] [address] August, Paranoid schizophrenia F20.0 [facility] [address] [place], [place] [id number] [place] [address] August, [facility] [address] [place] [id number] [address] [place] [address] Jul, [facility] [address] [place] [id number] [address] [place] [address] Jul, Diabetic polyneuropathy asso ciated with type 2 diabetes mellitus E11.42 ; Paranoid schizophrenia F20.0 ; Preoperative clearance Z01.818 and Morbid obesity E66.01 [facility] [address] [facility] [id number] [address] [place] [address] Jul, Paranoid schizophrenia F20.0 [facility] [address] [facility] [id number] [address] [place] [address] Jul, [facility] [address] [place] [id number] [address] [place] [address] Jul, [facility] [address] [place] [id number] [address] [place] [address] Jul, Cigarette nicotine dependenc e without complication F17.210 [facility] [address] [place] [id number] [address] [place] [address] Jul, Type 2 diabetes mellitus wit hout complication, without long-term current use of insulin E11.9 and Hypothyroidism (acquired) E03.9 [place] [address] [facility] [id number] [address] [place] [address] Jul, Encounter for Medicare anndouglas l wellness exam Z00.00 ; Morbid obesity due to excess calories E66.01 ; Diabetic polyneuropathy associated with type 2 diabetes mellitus E11.42 ; Chronic obstructive pulmonary disease, unspecified COPD type J44.9 ; Schizoaffective disorder, depressive type F25.1 ; Hypothyroidism (acquired) E03.9 and Morbid obesity E66.01 [place] [address] [facility] [id number] [address] [place] [address] Jun, Gastroesophageal reflux dise ase without esophagitis K21.9 [place] [address] [place] [id number] [place] [address] Jun, Paranoid schizophrenia F20.0 [place] [address] [place] [id number] [place] [address] Jun, Schizoaffective disorder, de pressive type F25.1 [place] [address] [place] [id number] [place] [address] Jun, [place] [address] [place] [id number] [place] [address] Jun, Schizoaffective disorder, de pressive type F25.1 [place] [address] [place] [id number] [place] [address] Jun, Cigarette nicotine dependenc e without complication F17.210 [place] [address] [facility] [id number] [address] [place] [address] 18 Jun, 2018 Type 2 diabetes mellitus wit hout complication, without long-term current use of insulin E11.9 [place] [address] [place] [id number] [place] [address] 15 Jun, 2018 [place] [address] [address] 13 Jun, 2018 [facility] [address] [address] 13 Jun, 2018 [facility] [address] [address] 07 Jun, 2018 [facility] [address] [address] Jun, [facility] [address] [address] 06 Jun, 2018 Paranoid schizophrenia F20.0 ; Type 2 diabetes mellitus without complication, without long-term current use of insulin E11.9 ; Hypothyroidism (acquired) E03.9 and Morbid obesity E66.01 [place] [address] [address] 28 May, 2018 Paranoid schizophrenia F20.0 [place] [address] [address] 20 May, 2018 Hypothyroidism (acquired) E0 3.9 and Dyslipidemia E78.5 [place] [address] [address] 19 May, 2018 Cigarette nicotine dependenc e without complication F17.210 [place] [address] [address] 18 May, 2018 [place] [address] [address] 14 May, 2018 Type 2 diabetes mellitus wit hout complication, without long-term current use of insulin E11.9 ; Essential hypertension I10 ; Hypothyroidism (acquired) E03.9 and Dyslipidemia E78.5 [place] [address] [address] 13 May, 2018 [place] [address] [address] 08 May, 2018 Schizoaffective disorder, de pressive type F25.1 [facility] [address] [address] 08 May, 2018 Paranoid schizophrenia F20.0 [place] [address] [address] 07 May, 2018 [facility] [place] [address] [place] [address] 07 May, 19 [place] [address] [address] May, [place] [address] [address] May, Type 2 diabetes mellitus wit hout complication, without long-term current use of insulin E11.9 ; Essential hypertension I10 ; Hypothyroidism (acquired) E03.9 and Dyslipidemia E78.5 [place] [address] [address] May, [facility] [address] [address] May, Acute nasopharyngitis J00 [facility] [address] [address] May, Allergic rhinitis, unspecifi ed seasonality, unspecified trigger J30.9 [place] [address] [address] May, [facility] [address] [address] Apr, Schizoaffective disorder, de pressive type F25.1 [place] [address] [address] Apr, [facility] [address] [address] Apr, Cigarette nicotine dependenc e without complication F17.210 [facility] [address] [place] [id number] [address] [place] [address] Apr, [facility] [address] [place] [id number] [address] [place] [address] Apr, Cigarette nicotine dependenc e without complication F17.210 [facility] [address] [place] [id number] [place] [address] Apr, [facility] [address] [place] [id number] [place] [address] Apr, Migraine without aura and wi thout status migrainosus, not intractable G43.009 [place] [address] [place] [id number] [place] [address] Apr, Migraine without aura and wi thout status migrainosus, not intractable G43.009 [facility] [address] [place] [id number] [address] [place] [address] Mar, Schizoaffective disorder, de pressive type F25.1 ; BMI 45.0-49.9, adult Z68.42 and BMI 40.0-44.9, adult Z68.41 [place] [address] [address] Mar, Primary insomnia F51.01 [facility] [address] [address] Mar, [facility] [address] [place] [id number] [place] [address] 14 Feb, 2018 Primary insomnia F51.01 [facility] [address] [place] [id number] [place] [address] Feb, [facility] [address] [place] [id number] [address] [place] [address] 24 Jan, 2018 Schizoaffective disorder, de pressive type F25.1 and BMI 45.0-49.9, adult Z68.42 [facility] [address] [place] [id number] [place] [address] Jan, [place] [address] [address] 16 Jan, 2018 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, without long-term current use of insulin E11.610 ; Menopausal syndrome (hot flashes) N95.1 ; BMI 40.0-44.9, adult Z68.41 and Morbid obesity E66.01 [place] [address] [address] Jan, Paranoid schizophrenia F20.0 [place] [address] [place] [id number] [place] [address] Jan, [place] [address] [address] Jan, Schizoaffective disorder, de pressive type F25.1 [place] [address] [address] Jan, [place] [address] [address] Jan, Chronic obstructive pulmonar y disease, unspecified COPD type J44.9 ; BMI 45.0-49.9, adult Z68.42 ; Type 2 diabetes mellitus without complication, without long-term current use of insulin E11.9 ; Hypothyroidism (acquired) E03.9 ; Encounter for immunization Z23 ; Gastroesophageal reflux disease without esophagitis K21.9 ; Primary insomnia F51.01 and Acute nasopharyngitis J00 [place] [address] [place] [id number] [place] [address] Dec, [place] [address] [address] Dec, Schizoaffective disorder, de pressive type F25.1 and BMI 45.0-49.9, adult Z68.42 [place] [address] [address] Dec, [place] [address] [id number] [address] [place] [address] 18 Dec, 2017 [facility] [address] [id number] [address] [place] [address] 18 Dec, 2017 Acute non-recurrent frontal sinusitis J01.10 [facility] [address] [id number] [address] [place] [address] 18 Dec, 2017 Acute non-recurrent frontal sinusitis J01.10 ; Weakness of left leg R29.898 ; At high risk for falls Z91.81 and BMI 45.0-49.9, adult Z68.42 [facility] [address] [id number] [address] [place] [address] Dec, [facility] [address] [id number] [address] [place] [address] Dec, [facility] [address] [facility] [id number] [address] [place] [address] Dec, Schizoaffective disorder, de pressive type F25.1 [facility] [address] [id number] [address] [place] [address] Dec, Acute nasopharyngitis J00 [facility] [address] [id number] [address] [place] [address] 05 Dec, 2017 Schizoaffective disorder, de pressive type F25.1 [facility] [address] [id number] [address] [place] [address] Dec, [facility] [address] [id number] [address] [place] [address] Nov, Schizoaffective disorder, de pressive type F25.1 and BMI 45.0-49.9, adult Z68.42 [facility] [address] [id number] [address] [place] [address] Nov, [facility] [address] [facility] [id number] [address] [place] [address] Nov, [place] [address] [place] [address] Nov, Schizoaffective disorder, de pressive type F25.1 [place] [address] [place] [id number] [address] [place] [address] Nov, Well woman exam Z01.419 ; BM I 45.0-49.9, adult Z68.42 ; Screening breast examination Z12.31 and Dietary counseling and surveillance Z71.3 [place] [address] [place] [id number] [address] [place] [address] Nov, Paranoid schizophrenia F20.[address] [address] Nov, Gastroesophageal reflux dise ase, esophagitis presence not specified K21.9 [place] [id number] [place] [address] Oct, Paranoid schizophrenia F20.0 [id number] [place] [address] Oct, Chronic pain syndrome G89.4 and Schizoaf fective disorder, depressive type F25.1 [place] [address] [place] [address] Oct, Chronic pain syndrome G89.4 and Schizoaffective disorder, depressive type F25.1 [place] [address] [place] [id number] [address] [place] [address] 16 Oct, 2017 Type 2 diabetes mellitus wit hout complication, without long-term current use of insulin E11.9 [place] [address] [address] [place] [id number] [address] [place] [phone] 12 Oct, 2017 Essential hypertension I10 a nd DM neuro manif type II E11.49 [place] [address] [address] [place] [id number] [address] [place] [phone] Oct, [place] [address] [id number] Oct, Schizoaffective disorder, de pressive type F25.1 and BMI 45.0-49.9, adult Z68.42 [facility] [address] [facility] [id number] [address] [place] [id number] Oct, [facility] [address] [facility] [id number] [address] [place] [id number] Oct, Paranoid schizophrenia F20.0 [facility] [address] [facility] [id number] [address] [place] [phone] Oct, 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, without long-term current use of insulin E11.610 ; Essential hypertension I10 ; Hypothyroidism (acquired) E03.9 ; Chronic obstructive pulmonary disease, unspecified COPD type J44.9 and Diabetic polyneuropathy associated with type 2 diabetes mellitus E11.42 [facility] [address] [facility] [id number] [address] [place] [phone] Sep, Paranoid schizophrenia F20.0 [facility] [address] [facility] [id number] [address] [place] [phone] Sep, Paranoid schizophrenia F20.0 and BMI 45.0-49.9, adult Z68.42 [facility] [address] [place] [id number] [address] [place] [id number] Sep, Schizoaffective disorder, de pressive type F25.1 [facility] [address] [place] [id number] [address] [place] [id number] Sep, [facility] [address] [facility] [id number] [address] [place] [id number] Sep, Paranoid schizophrenia F20.0 [facility] [address] [facility] [id number] [address] [place] [id number] Sep, [facility] [address] [facility] [id number] [address] [place] [id number] 06 Sep, 2017 Hypothyroidism (acquired) E0 3.9 [facility] [address] [facility] [id number] [address] [place] [id number] Sep, [facility] [address] [facility] [id number] [address] [place] [address] August, Schizoaffective disorder, de pressive type F25.1 [facility] [address] [facility] [id number] [address] [place] [address] August, [facility] [address] [facility] [id number] [address] [place] [address] August, [facility] [address] [facility] [id number] [address] [place] [address] August, [facility] [address] [place] [id number] [place] [address] August, Paranoid schizophrenia F20.0 [facility] [address] [place] [id number] [place] [address] August, History of lupus Z87.39 and Chronic pain syndrome G89.4 [facility] [address] [place] [id number] [address] [place] [address] August, [facility] [address] [place] [id number] [place] [phone] August, Seasonal allergic rhinitis, unspecified trigger J30.2 and BMI 45.0-49.9, adult Z68.42 [facility] [address] [facility] [id number] [address] [place] [id number] Jul, Schizoaffective disorder, de pressive type F25.1 [facility] [address] [facility] [id number] [address] [place] [id number] Jul, [facility] [address] [place] [id number] [place] [address] Jul, Hypothyroidism (acquired) E0 3.9 [facility] [address] [facility] [id number] [address] [place] [phone] Jul, Chronic obstructive pulmonar y disease, unspecified COPD type J44.9 and Type 2 diabetes mellitus without complication, without long-term current use of insulin E11.9 [facility] [address] [address] Jul, Paranoid schizophrenia F20.0 [facility] [address] [address] Jun, Hypothyroidism (acquired) E0 3.9 and Seasonal allergic rhinitis due to pollen J30.1 [facility] [address] [place] [id number] [place] [address] Jun, Shortness of breath at rest R06.02 ; COPD exacerbation J44.1 and BMI 45.0-49.9, adult Z68.42 [facility] [address] [address] Jun, [facility] [address] [address] Jun, Paranoid schizophrenia F20.0 ; Depression with anxiety F41.8 and BMI 45.0-49.9, adult Z68.42 [facility] [address] [address] Jun, Schizoaffective disorder, de pressive type F25.1 [facility] [address] [place] [id number] [address] [place] [id number] Jun, Dental caries K02.9 [facility] [address] [address] Jun, Paranoid schizophrenia F20.0 [facility] [address] [address] May, Migraine without aura and wi thout status migrainosus, not intractable G43.009 ; DM neuro manif type II E11.49 and Type 2 diabetes mellitus without complication, without long-term current use of insulin E11.9 [facility] [address] [address] May, Migraine without aura and wi thout status migrainosus, not intractable G43.009 [facility] [address] [place] [id number] [address] [place] [address] May, Depression with anxiety F41. 8 [facility] [address] [facility] [id number] [address] [place] [address] [id number] May, [facility] [address] [address] May, [facility] [address] [address] May, [place] [address] [address] May, Hypothyroidism (acquired) E0 3.9 [place] [address] [address] May, Paranoid schizophrenia F20.0 [facility] [address] [place] [id number] [address] [place] [address] May, Type 2 diabetes mellitus wit hout [...] Controlled substance agreement signed Z79.899 [place] [address] [address] May, Controlled substance agreeme nt signed Z79.899 [place] [address] [address] Apr, [facility] [address] [id number] [address] [place] [id number] Apr, Dental examination Z01.20 [facility] [address] [facility] [id number] [address] [place] [address] Apr, Paranoid schizophrenia F20.0 [facility] [address] [facility] [id number] [address] [place] [address] Apr, Hypertension, unspecified ty pe I10 [facility] [address] [facility] [id number] [address] [place] [address] Apr, Paranoid schizophrenia F20.0 [facility] [address] [facility] [id number] [address] [place] [address] Apr, [facility] [address] [facility] [id number] [address] [place] [address] Apr, Tobacco abuse Z72.0 [facility] [address] [facility] [id number] [address] [place] [address] Apr, [facility] [address] [facility] [id number] [address] [place] [address] Mar, [facility] [address] [place] [id number] [address] [place] [address] Mar, Paranoid schizophrenia F20.0 and BMI 45.0-49.9, adult Z68.42 [facility] [address] [facility] [id number] [address] [place] [address] Mar, Schizoaffective disorder, de pressive type F25.1 [facility] [address] [facility] [id number] [address] [place] [phone] Mar, [facility] [address] [facility] [id number] [address] [place] [phone] Mar, Hypothyroidism, unspecified type E03.9 [facility] [address] [facility] [id number] [address] [place] [address] Mar, Schizoaffective disorder, de pressive type F25.1 [facility] [address] [facility] [id number] [address] [place] [address] Feb, Gastroenteritis K52.9 and BM I 45.0-49.9, adult Z68.42 [facility] [address] [place] [id number] [address] [place] [address] Feb, [facility] [address] [facility] [id number] [address] [place] [address] Feb, [facility] [address] [facility] [id number] [address] [place] [phone] Feb, [facility] [address] [place] [id number] [place] [phone] Feb, [facility] [address] [address] Feb, Paranoid schizophrenia F20.0 [facility] [address] [place] [id number] [address] [place] [address] Feb, Gastroesophageal reflux dise ase without esophagitis K21.9 ; Other seasonal allergic rhinitis J30.2 ; Other allergic rhinitis J30.89 ; Tobacco abuse Z72.0 and BMI 40.0-44.9, adult Z68.41 [facility] [id number] [place] [address] Feb, Onychomycosis B35.1 ; Callus of foot L84 and DM neuro manif type II E11.49 [facility] [address] [facility] [id number] [address] [place] [phone] Jan, Chronic allergic rhinitis J3 0.9 [facility] [address] [place] [id number] [place] [phone] Jan, [facility] [address] [facility] [id number] [address] [place] [address] Jan, Schizoaffective disorder, de pressive type F25.1 [facility] [address] [place] [id number] [place] [phone] 10 Jan, 2017 [facility] [address] [place] [id number] [address] [place] [phone] 07 Jan, 2017 Sore throat J02.9 and Season al allergic rhinitis due to other allergic trigger J30.89 [facility] [address] [place] [id number] [place] [id number] 04 Jan, 2017 [facility] [address] [place] [id number] [place] [phone] 04 Jan, 2017 [facility] [address] [place] [id number] [place] [phone] Jan, Chronic allergic rhinitis J3 0.9 [facility] [address] [place] [id number] [place] [phone] 27 Dec, 2016 Paranoid schizophrenia F20.0 ; Primary insomnia F51.01 and Schizoaffective disorder, depressive type F25.1 [facility] [address] [address] Dec, Chronic pain syndrome G89.4 ; Cervicalgia of ekivenjd-ofdqcww-xtwco region M54.2 ; Menopausal syndrome (hot flashes) N95.1 and Encounter for immunization Z23 [facility] [address] [place] [id number] [place] [phone] 14 Dec, 2016 [place] [address] [address] 13 Dec, 2016 [place] [address] [place] [id number] [place] [phone] 08 Dec, 2016 Paranoid schizophrenia F20.0 [place] [address] [place] [id number] [place] [address] Dec, Schizoaffective disorder, de pressive type F25.1 [place] [address] [place] [id number] [place] [address] Nov, Hypothyroidism, unspecified type E03.9 [facility] [address] [facility] [id number] [address] [place] [address] Nov, Acute seasonal allergic rhin itis due to other allergen J30.89 [facility] [address] [facility] [id number] [address] [place] [address] Nov, [facility] [address] [facility] [id number] [address] [place] [address] Nov, Hypothyroidism, unspecified type E03.9 and Other elevated white blood cell (WBC) count D72.828 [place] [address] [facility] [id number] [address] [place] [phone] Nov, Schizoaffective disorder, de pressive type F25.1 [facility] [address] [place] [id number] [place] [address] Nov, Paranoid schizophrenia F20.0 [place] [address] [place] [id number] [place] [phone] Nov, Type 2 diabetes mellitus wit hout complication, without long-term current use of insulin E11.9 ; Morbid obesity due to excess calories E66.01 and Chronic pain syndrome G89.4 [facility] [address] [place] [id number] [place] [phone] Oct, Paranoid schizophrenia F20.0 [facility] [address] [place] [id number] [place] [phone] Oct, [place] [address] [place] [id number] [place] [address] Oct, Schizoaffective disorder, de pressive type F25.1 [facility] [address] [place] [id number] [place] [address] Oct, Hypothyroidism, unspecified type E03.9 and Other elevated white blood cell (WBC) count D72.828 [facility] [address] [place] [id number] [place] [address] Oct, Morbid obesity due to excess calories E66.01 ; Chronic obstructive pulmonary disease, unspecified COPD type J44.9 ; History of lupus Z87.39 ; Hypothyroidism, unspecified type E03.9 ; Gastroesophageal reflux disease without esophagitis K21.9 ; Primary insomnia F51.01 and Chronic pain syndrome G89.4 [facility] [address] [facility] [id number] [address] [place] [address] Sep, [facility] [address] [facility] [id number] [address] [place] [phone] Sep, [facility] [address] [facility] [id number] [address] [place] [phone] Sep, [facility] [address] [facility] [id number] [address] [place] [address] Sep, Paranoid schizophrenia F20.0 [facility] [address] [facility] [id number] [address] [place] [phone] Sep, [facility] [address] [facility] [id number] [address] [place] [address] Sep, Paranoid schizophrenia F20.0 [facility] [address] [facility] [id number] [address] [place] [phone] Sep, [facility] [address] [facility] [id number] [address] [place] [address] August, Paranoid schizophrenia F20.0 [facility] [address] [facility] [id number] [address] [place] [address] Jul, [facility] [address] [facility] [id number] [address] [place] [address] Jul, Type 2 diabetes mellitus wit hout complication, without long-term current use of insulin E11.9 ; Morbid obesity due to excess calories E66.01 ; Depression with anxiety F41.8 ; Hypothyroidism, unspecified type E03.9 ; Seasonal allergic rhinitis due to other allergic trigger J30.89 ; Pain, dental K08.89 and Gastroesophageal reflux disease without esophagitis K21.9 [facility] [address] [place] [id number] [place] [id number] Jul, 2016 Dental examination Z01.20 [place] [address] [address] 07 Jul, 2016 Paranoid schizophrenia F20.0 [place] [address] [id number] 13 Jun, 2016 Paranoid schizophrenia F20.0 and Depression with anxiety F41.8 [place] [address] [address] 10 Jun, 2016 Paranoid schizophrenia F20.0 and Depression with anxiety F41.8 [place] [address] [address] 09 Jun, 2016 [place] [address] [address] Jun, [facility] [place] [address] [address] Jun, Seasonal allergic rhinitis d ue to other allergic trigger J30.89 [facility] [address] [address] May, Sore throat J02.9 ; Other vi ral agents as the cause of diseases classified elsewhere B97.89 and Acute upper respiratory infection, unspecified J06.9 [place] [address] [address] May, Paranoid schizophrenia F20.0 and Depression with anxiety F41.8 [place] [address] [place] [id number] [address] [place] [address] Apr, Other seasonal allergic rhin itis J30.2 [place] [address] [place] [id number] [place] [address] Apr, Paranoid schizophrenia F20.0 and Depression with anxiety F41.8 [facility] [place] [address] [address] Apr, Bronchitis J40 and Sore thro at J02.9 [facility] [address] [address] Apr, Type 2 diabetes mellitus wit hout complication, without long-term current use of insulin E11.9 [facility] [address] [place] [id number] [place] [id number] Apr, Bronchitis J40 [facility] [address] [address] Apr, [facility] [address] [address] Apr, [facility] [address] [address] Mar, Type 2 diabetes mellitus wit hout [...] Other seasonal allergic rhinitis J30.2 [place] [address] [place] [id number] [address] [place] [address] Mar, Paranoid schizophrenia F20.0 and Depression with anxiety F41.8 [facility] [address] [place] [id number] [address] [place] [address] Feb, [place] [address] [address] Feb, [place] [address] [address] Feb, [place] [address] [address] Feb, [facility] [address] [id number] [address] [place] [phone] 14 Feb, 2016 Type 2 diabetes mellitus wit hout complication, without long-term current use of insulin E11.9 ; ARIAS on CPAP G47.33 and Preoperative evaluation to rule out surgical contraindication Z01.818 [facility] [address] [id number] [address] [place] [address] 09 Feb, 2016 Paranoid schizophrenia F20.0 and Depression with anxiety F41.8 [facility] [address] [id number] [address] [place] [id number] 18 Jan, 2016 [facility] [address] [id number] [address] [place] [address] 18 Jan, 2016 Paranoid schizophrenia F20.0 and Depression with anxiety F41.8 [facility] [address] [id number] [address] [place] [address] 17 Jan, 2016 [facility] [address] [id number] [address] [place] [address] 14 Jan, 2016 Muscle strain T14.8 [facility] [address] [id number] [address] [place] [phone] 10 Jan, 2016 Paranoid schizophrenia F20.0 [facility] [address] [id number] [address] [place] [phone] 07 Jan, 2016 [facility] [address] [id number] [address] [place] [id number] 05 Jan, 2016 Paranoid schizophrenia F20.0 and Depression with anxiety F41.8 [facility] [address] [id number] [address] [place] [id number] 05 Jan, 2016 [facility] [address] [id number] [address] [place] [phone] Jan, [facility] [address] [id number] [address] [place] [address] Dec, [facility] [address] [id number] [address] [place] [address] Dec, Paranoid schizophrenia F20.0 [facility] [address] [id number] [address] [place] [id number] 16 Dec, 2015 Paranoid schizophrenia F20.0 and Depression with anxiety F41.8 [facility] [address] [id number] [address] [place] [address] Nov, [facility] [address] [id number] [address] [place] [phone] Nov, Paranoid schizophrenia F20.0 [facility] [address] [id number] [address] [place] [id number] Nov, Paranoid schizophrenia F20.0 and Depression with anxiety F41.8 [facility] [address] [id number] [address] [place] [address] Nov, Type 2 diabetes mellitus wit hout complication, without long-term current use of insulin E11.9 ; Paranoid schizophrenia F20.0 ; Chronic obstructive pulmonary disease, unspecified COPD type J44.9 ; Morbid obesity due to excess calories E66.01 and Parkinsonian tremor G20 [facility] [address] [id number] [address] [place] [address] Nov, [facility] [address] [id number] [address] [place] [address] Oct, Paranoid schizophrenia F20.0 [facility] [address] [id number] [address] [place] [id number] Oct, Paranoid schizophrenia F20.0 [facility] [address] [id number] [address] [place] [address] Oct, Paranoid schizophrenia F20.0 and Depression with anxiety F41.8 [facility] [address] [id number] [address] [place] [id number] Oct, [facility] [address] [id number] [address] [place] [phone] Oct, Paranoid schizophrenia F20.0 and Depression with anxiety F41.8 [place] [id number] [place] [id number] [place] [id number] Oct, Nasal sore J34.89 [facility] [address] [facility] [id number] [address] [place] [address] Oct, Type 2 diabetes mellitus wit hout complication, without long-term current use of insulin E11.9 ; Depression with anxiety F41.8 ; Hypothyroidism, unspecified type E03.9 and History of lupus Z87.39 [place] [address] [place] [id number] [place] [id number] Oct, [place] [address] [place] [id number] [place] [id number] Oct, Type 2 diabetes mellitus wit hout [...] edema R60.9 and History of lupus Z87.39 [place] [address] [place] [id number] [address] [place] [id number] Feb, [place] [address] [place] [id number] [address] [place] [phone] Jan, [place] [address] [place] [id number] [address] [place] [id number] Jan, [place] [address] [place] [id number] [address] [place] [id number] Jan, [place] [address] [place] [id number] [address] [place] [id number] Dec, [place] [address] [place] [id number] [place] [address] [place] [phone] Nov, [facility] [address] [id number] [address] [place] [address], [place] [address] Nov, [facility] [address] [id number] [address] [place] [address], [place] [address] Oct, [facility] [address] [id number] [address] [place] [address], [place] [address] Oct, [facility] [address] [id number] [address] [place] [id number] Oct, [facility] [address] [id number] [address] [place] [id number] Sep, Allergic rhinitis 477.9 [facility] [address] [id number] [address] [place] [address], [place] [address] Sep, Rhinitis, allergic 477.9 [facility] [address] [id number] [address] [place] [id number] Sep, Rhinitis, allergic 477.9 [facility] [address] [id number] [address] [place] [address], [place] [address] Sep, [facility] [address] [id number] [address] [place] [id number] August, [facility] [address] [id number] [address] [place] [id number] August, [facility] [address] [id number] [address] [place] [phone] August, [facility] [address] [id number] [address] [place] [address], [place] [address] Jul, [facility] [address] [id number] [address] [place] [id number] 14 Jul, 2014 [facility] [address] [id number] [address] [place] [id number] Jul, [facility] [address] [id number] [address] [place], [place] [address] [place] [address] 16 Jun, 2014 [facility] [address] [id number] [address] [place] [address], [place] [address] 16 Jun, 2014 [facility] [address] [id number] [address] [place] [address], [place] [address] 12 Jun, 2014 [facility] [address] [id number] [address] [place] [address], [place] [address] 12 Jun, 2014 [facility] [address] [id number] [address] [place] [address], [place] [address] 11 Jun, 2014 [facility] [address] [id number] [address] [place] [address], [place] [address] Jun, [facility] [address] [id number] [address] [place] [address], [place] [address] Jun, [facility] [address] [id number] [address] [place] [address], [place] [address] Jun, [facility] [address] [id number] [address] [place] [address], [place] [address] May, [facility] [address] [id number] [address] [place] [address], [place] [address] May, [facility] [address] [id number] [address] [place] [address], [place] [address] May, [facility] [address] [id number] [address] [place] [address], [place] [address] May, [facility] [address] [id number] [address] [place] [address], [place] [address] Apr, [facility] [address] [id number] [address] [place] [address], [place] [address] Mar, [facility] [address] [id number] [address] [place] [address], [place] [address] Mar, [facility] [address] [id number] [address] [place] [address], [place] [address] Mar, [facility] [address] [id number] [address] [place] [address], [place] [address] Mar, [facility] [address] [id number] [address] [place] [address], [place] [address] Mar, [facility] [address] [id number] [address] [place] [address], [place] [address] Mar, [facility] [address] [id number] [address] [place] [address], [place] [address] Mar, [facility] [address] [id number] [address] [place] [address], [place] [address] Mar, [facility] [address] [id number] [address] [place] [address], [place] [address] Mar, [facility] [address] [id number] [address] [place] [address], [place] [address] Feb, [facility] [address] [id number] [address] [place] [address], [place] [address] Feb, [facility] [address] [id number] [address] [place] [address], [place] [address] Feb, [facility] [address] [id number] [address] [place] [address], [place] [address] Feb, [facility] [address] [id number] [address] [place] [address], [place] [address] 14 Feb, 2014 [facility] [address] [id number] [address] [place] [address], [place] [address] 14 Feb, 2014 [facility] [address] [id number] [address] [place] [address], [place] [address] Feb, [facility] [address] [id number] [address] [place] [address], [place] [address] Feb, [facility] [address] [id number] [address] [place] [address], [place] [address] Jan, [facility] [address] [id number] [address] [place] [address], [place] [address] 23 Jan, 2014 [facility] [address] [id number] [address] [place] [address], [place] [address] 16 Jan, 2014 [facility] [address] [id number] [address] [place] [address], [place] [address] 16 Jan, 2014 [facility] [address] [id number] [address] [place] [address], [place] [address] 15 Jan, 2014 [facility] [address] [id number] [address] [place] [address], [place] [address] 15 Jan, 2014 [facility] [address] [id number] [address] [place] [address], [place] [address] 14 Jan, 2014 [facility] [address] [id number] [address] [place] [address], [place] [address] 14 Jan, 2014 [facility] [address] [id number] [address] [place] [address], [place] [address] 14 Jan, 2014 [facility] [address] [id number] [address] [place] [address], [place] [address] 14 Jan, 2014 [facility] [address] [id number] [address] [place] [address], [place] [address] 18 Dec, 2013 [facility] [address] [id number] [address] [place] [address], [place] [address] 18 Dec, 2013 [facility] [address] [id number] [address] [place] [address], [place] [address] 10 Dec, 2013 [facility] [address] [id number] [address] [place] [address], [place] [address] 10 Dec, 2013 [facility] [address] [id number] [address] [place] [address], [place] [address] Nov, [facility] [address] [id number] [address] [place] [address], [place] [address] Nov, [facility] [address] [id number] [address] [place] [address], [place] [address] Nov, [facility] [address] [id number] [address] [place] [address], [place] [address] Nov, [facility] [address] [id number] [address] [place] [address], [place] [address] Nov, [facility] [address] [id number] [address] [place] [address], [place] [address] Oct, [facility] [address] [id number] [address] [place] [address], [place] [address] Oct, [facility] [address] [id number] [address] [place] [address], [place] [address] Oct, [facility] [address] [id number] [address] [place] [address], [place] [address] Oct, [facility] [address] [id number] [address] [place] [address], [place] [address] Sep, [facility] [address] [id number] [address] [place] [address], [place] [address] Sep, [facility] [address] [id number] [address] [place] [address], [place] [address] Sep, [facility] [address] [id number] [address] [place] [address], [place] [address] Sep, [facility] [address] [id number] [address] [place] [address], [place] [address] Sep, [facility] [address] [id number] [address] [place] [address], [place] [address] Sep, [facility] [address] [id number] [address] [place] [address], [place] [address] Sep, [facility] [address] [id number] [address] [place] [address], [place] [address] Sep, [facility] [address] [id number] [address] [place] [address], [place] [address] August, [facility] [address] [id number] [address] [place] [address], [place] [address] August, [facility] [address] [id number] [facility] [place] [address] August, [facility] [address] [id number] [address] [place] [address], [place] [address] August, [facility] [address] [id number] [address] [place] [address], [place] [address] August, [facility] [address] [id number] [address] [place] [address], [place] [address] August, [facility] [address] [id number] [address] [place] [address], [place] [address] August, [facility] [address] [id number] [address] [place] [address], [place] [address] Jul, [facility] [address] [id number] [address] [place] [address], [place] [address] Jul, [facility] [address] [id number] [address] [place] [address], [place] [address] Jul, [facility] [address] [id number] [address] [place] [address], [place] [address] Jul, [facility] [address] [id number] [address] [place] [address], [place] [address] Jul, [facility] [address] [id number] [address] [place] [address], [place] [address] Jul, [facility] [address] [id number] [address] [place] [address], [place] [address] Jul, [facility] [address] [id number] [address] [place] [address], [place] [address] Jul, [facility] [address] [id number] [address] [place] [address], [place] [address] Jul, [facility] [address] [id number] [address] [place] [address], [place] [address] Jul, [facility] [address] [id number] [address] [place] [address], [place] [address] Jul, [facility] [address] [id number] [address] [place] [address], [place] [address] Jul, [facility] [address] [id number] [address] [place] [address], [place] [address] Jun, [facility] [address] [id number] [address] [place] [address], [place] [address] Jun, [facility] [address] [id number] [address] [place] [address], [place] [address] Jun, [facility] [address] [id number] [address] [place] [address], [place] [address] Jun, [facility] [address] [id number] [address] [place] [address], [place] [address] Jun, [facility] [address] [id number] [address] [place] [address], [place] [address] May, [facility] [address] [id number] [address] [place] [address], [place] [address] May, [facility] [address] [id number] [address] [place] [address], [place] [address] May, [facility] [address] [id number] [address] [place] [address], [place] [address] May, [facility] [address] [id number] [address] [place] [address], [place] [address] May, [facility] [address] [id number] [address] [place] [address], [place] [address] May, [facility] [address] [id number] [address] [place] [address], [place] [address] May, [facility] [address] [id number] [address] [place] [address], [place] [address] May, [facility] [address] [id number] [address] [place] [address], [place] [address] Mar, [facility] [address] [id number] [address] [place] [address], [place] [address] Mar, [facility] [address] [id number] [address] [place] [address], [place] [address] Mar, [facility] [address] [id number] [address] [place] [address], [place] [address] Mar, [facility] [address] [id number] [address] [place] [address], [place] [address] Mar, [facility] [address] [id number] [address] [place] [address], [place] [address] Mar, [facility] [address] [id number] [address] [place] [address], [place] [address] Feb, [facility] [address] [id number] [address] [place] [address], [place] [address] Feb, [facility] [address] [id number] [address] [place] [address], [place] [address] Jan, [facility] [address] [id number] [address] [place] [address], [place] [address] Jan, [facility] [address] [id number] [address] [place] [address] Jan, [facility] [address] [id number] [address] [place] [address] Jan, [facility] [address] [id number] [address] [place] [address] Jan, [facility] [address] [id number] [address] [place] [address], [place] [address] Jan, [facility] [address] [id number] [address] [place] [address], [place] [address] Jan, [facility] [address] [id number] [address] [place] [address] Jan, [facility] [address] [id number] [address] [place] [address] [place] [address] Jan, [facility] [address] [id number] [address] [place] [address], [place] [address] Jan, [facility] [address] [id number] [address] [place] [address], [place] [address] Dec, [facility] [address] [id number] [address] [place] [address], [place] [address] Nov, [facility] [address] [id number] [address] [place] [address], [place] [address] Nov, [facility] [address] [id number] [address] [place] [address], [place] [address] Nov, [facility] [address] [id number] [address] [place] [address], [place] [address] Oct, [facility] [address] [id number] [address] [place] [address], [place] [address] Oct, [facility] [address] [id number] [address] [place] [address], [place] [address] August, [facility] [address] [id number] [address] [place] [address], [place] [address] Apr, [facility] [address] [id number] [address] [place] [address], [place] [address] Apr, [facility] [address] [id number] [address] [place] [address], [place] [address] Feb, [facility] [address] [id number] [address] [place] [address], [place] [address] Feb, [facility] [address] [id number] [address] [place] [address], [place] [address] Dec, [facility] [address] [id number] [address] [place] [address], [place] [address] Dec, [facility] [address] [id number] [address] [place] [address], [place] [address] Oct, [facility] [address] [facility] [id number] [address] [place] [address] Oct, [facility] [address] [facility] [id number] [address] [place] [address] Oct, [facility] [address] [facility] [id number] [address] [place] [address] Jul, IMMUNIZATIONS No Known Immunizations SOCIAL HISTORY [...] hospitalizations for psychosis/mental illness, last one in [facility] 4 years ago Hospitalization History broken ankle 08/2018
--- OUTSIDE RECORDS SUMMARY | 2019-07-07 04:12 | XMS REPORT ---
Author Author Alayna ROJAS Organization [facility] Address [address] [place] [address] Care Team Providers Care Personnel Consultant Name Role Phone RADHA ROJAS Unavailable PROBLEMS Type Condition ICD9-CM Code FTM78-GR Code Onset Dates Condition S tatus SNOMED Code Problem Morbid obesity due to excess calories E66.01 Active 941921131 Problem Paranoid schizophrenia F20.0 Active 33661482 Problem Chronic pain syndrome G89.4 Active 702538422 Problem History of lupus Z87.39 Active 312 643836 Problem Type 2 diabetes mellitus wit hout complication, without long-term current use of insulin E11.9 Active 962220639 Problem Gastroesophageal reflux disease without esophagitis K21.9 Active 686286474 Problem OAB (overactive bladder) N32.81 Activ e 060830436 Problem Hypothyroidism (acquired) E03.9 Acti ve 547619598 Problem Essential hypertension I10 Active 97561715 Problem Chronic obstructive pulmonary disease, unspecified COPD ty pe J44.9 Active 29508456 Problem Depression with anxiety F41.8 Active 485123417 Problem Menopausal syndrome (hot flashes) N95.1 Active 610938804 Problem DM neuro manif type II E11.49 Active 71866034 Problem Other seasonal allergic rhinitis J30.2 Active 762234323 Problem Other allergic rhinitis J30.89 Active 970682753 Problem Gastroesophageal reflux disease, esophagitis pre sence not specified K21.9 Active 302572554 Problem Tobacco abuse Z72.0 Active 035442 000 Problem Dyslipidemia E78.5 Active 9027280 07 Problem Migraine without aura and without status migrain osus, not intractable G43.009 Active 047161293 Problem COPD exacerbation J44.1 Active 19 3125537 Problem Seasonal allergic rhinitis due to pollen J30.1 Active 26146926 Problem Diabetic polyneuropathy associated with type 2 d iabetes mellitus E11.42 Active 218400867 Problem BMI 31.0-31.9,adult Z68.31 Active 443209453 Problem Schizoaffective disorder, depressive type F25.1 Active 18579479 Problem Vaginal dryness, menopausal N95.1 Ac tive 82379524 Problem Seasonal allergic rhinitis due to other allergic trigger J30.89 Active 983214496 Problem Primary insomnia F51.01 Active 397 2004 Problem 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, without long-term current use of insulin E11.610 Active 416916980 Problem Cigarette nicotine dependence without complication F17.210 Active 24493652 Problem Allergic rhinitis, unspecified seasonality, unspecifie d trigger J30.9 Active 00291570 Problem Constipation by delayed colonic transit K59.01 Active 29741443 ALLERGIES No Information ENCOUNTERS Encounter Location Date Diagnosis [place] [address] [address] 18 Mar, 2019 [place] [address] [place] [id number] [place] [phone] Mar, [place] [address] [address] Dec, Schizoaffective disorder, de pressive type F25.1 [facility] [address] [facility] [id number] [address] [place] [address] Dec, [facility] [address] [place] [id number] [address] [place] [address] Dec, [place] [place] [id number] [place] [address] Dec, Type 2 diabetes mellitus wit h [...] abuse Z72.0 and Encounter for immunization Z23 [place] [place] [id number] [place] [address] Dec, Encounter for immunization Z 23 [facility] [address] [id number] [address] [place] [address] Dec, [facility] [address] [id number] [address] [place] [address] 13 Dec, 2018 [facility] [address] [id number] [address] [place] [id number] Dec, [facility] [address] [id number] [address] [place] [address] Dec, [facility] [address] [id number] [address] [place] [phone] Dec, [facility] [address] [id number] [address] [place] [phone] Dec, [facility] [address] [id number] [address] [place] [phone] Nov, Paranoid schizophrenia F20.0 [facility] [address] [id number] [address] [place] [phone] Nov, [facility] [address] [id number] [address] [place] [phone] Nov, [facility] [address] [id number] [address] [place] [address] Nov, [facility] [address] [id number] [address] [place] [address] Nov, Encounter for comprehensive diabetic foot examination, type 2 diabetes mellitus E11.9 and Morbid obesity E66.01 [facility] [address] [id number] [address] [place] [address] Nov, [facility] [address] [id number] [address] [place] [phone] Nov, [facility] [address] [id number] [address] [place] [address] Nov, [facility] [address] [id number] [address] [place] [address] Nov, Schizoaffective disorder, de pressive type F25.1 [facility] [address] [facility] [id number] [address] [place] [address] Nov, Constipation by delayed colo james transit K59.01 [facility] [address] [facility] [id number] [address] [place] [phone] Oct, [facility] [address] [facility] [id number] [address] [place] [phone] Oct, [facility] [address] [facility] [id number] [address] [place] [phone] Oct, [facility] [address] [facility] [id number] [address] [place] [address] Oct, Chronic obstructive pulmonar y disease, unspecified COPD type J44.9 [facility] [address] [facility] [id number] [address] [place] [address] Oct, [facility] [address] [place] [id number] [address] [place] [address] Sep, Paranoid schizophrenia F20.0 [facility] [address] [facility] [id number] [address] [place] [phone] Sep, [facility] [address] [place] [id number] [address] [place] [phone] Sep, [facility] [address] [facility] [id number] [address] [place] [phone] Sep, Encounter for immunization Z 23 [facility] [address] [facility] [id number] [address] [place] [address] Sep, [facility] [address] [place] [id number] [address] [place] [address] Sep, Closed fracture of right ank le, sequela S82.891S ; Morbid obesity E66.01 and Heat rash L74.0 [facility] [address] [facility] [id number] [address] [place] [phone] Sep, Schizoaffective disorder, de pressive type F25.1 [facility] [address] [id number] [address] [place] [phone] Sep, [facility] [address] [id number] [address] [place] [phone] Sep, [facility] [address] [id number] [address] [place] [phone] Sep, [facility] [address] [id number] [address] [place] [phone] Sep, [facility] [address] [id number] [address] [place] [phone] Sep, [facility] [address] [id number] [address] [place] [phone] Sep, [facility] [address] [id number] [address] [place] [address] Sep, [facility] [address] [id number] [address] [place] [phone] Sep, [facility] [address] [id number] [address] [place] [phone] Sep, [facility] [address] [id number] [address] [place] [address] August, Paranoid schizophrenia F20.0 [facility] [address] [id number] [address] [place] [address] August, [facility] [address] [id number] [address] [place] [address] August, [facility] [address] [id number] [address] [place] [phone] August, [facility] [address] [id number] [address] [place] [address] August, Type 2 diabetes mellitus wit hout complication, without long-term current use of insulin E11.9 ; Closed fracture of right ankle, initial encounter S82.891A ; Constipation by delayed colonic transit K59.01 ; Osteoporosis with pathological fracture, initial encounter M80.00XA ; Encounter for immunization Z23 and Morbid obesity E66.01 [facility] [address] [facility] [id number] [address] [place] [address] August, [facility] [address] [facility] [id number] [address] [place] [address] August, [facility] [address] [place] [id number] [address] [place] [phone] August, Acquired deformity of muscul oskeletal system, unspecified M95.9 [facility] [address] [facility] [id number] [address] [place] [address] August, Paranoid schizophrenia F20.0 [facility] [address] [place] [id number] [address] [address] August, [facility] [address] [place] [id number] [address] [place] [address] Jul, [facility] [address] [place] [id number] [address] [place] [address] Jul, Diabetic polyneuropathy asso ciated with type 2 diabetes mellitus E11.42 ; Paranoid schizophrenia F20.0 ; Preoperative clearance Z01.818 and Morbid obesity E66.01 [facility] [address] [facility] [id number] [address] [place] [address] Jul, Paranoid schizophrenia F20.0 [facility] [address] [facility] [id number] [address] [place] [address] Jul, [facility] [address] [place] [id number] [address] [place] [phone] Jul, [facility] [address] [place] [id number] [address] [place] [address] Jul, Cigarette nicotine dependenc e without complication F17.210 [facility] [address] [place] [id number] [address] [place] [address] Jul, Type 2 diabetes mellitus wit hout complication, without long-term current use of insulin E11.9 and Hypothyroidism (acquired) E03.9 [place] [address] [facility] [id number] [address] [place] [phone] Jul, Encounter for Medicare anndouglas l wellness exam Z00.00 ; Morbid obesity due to excess calories E66.01 ; Diabetic polyneuropathy associated with type 2 diabetes mellitus E11.42 ; Chronic obstructive pulmonary disease, unspecified COPD type J44.9 ; Schizoaffective disorder, depressive type F25.1 ; Hypothyroidism (acquired) E03.9 and Morbid obesity E66.01 [place] [address] [facility] [id number] [address] [place] [phone] Jun, Gastroesophageal reflux dise ase without esophagitis K21.9 [place] [address] [place] [id number] [address] [place] [phone] Jun, Paranoid schizophrenia F20.0 [place] [address] [place] [id number] [address] [place] [phone] Jun, Schizoaffective disorder, de pressive type F25.1 [place] [address] [place] [id number] [address] [place] [phone] Jun, [place] [address] [place] [id number] [address] [place] [phone] Jun, Schizoaffective disorder, de pressive type F25.1 [place] [address] [place] [id number] [address] [place] [address] Jun, Cigarette nicotine dependenc e without complication F17.210 [place] [address] [facility] [id number] [address] [place] [phone] 18 Jun, 2018 Type 2 diabetes mellitus wit hout complication, without long-term current use of insulin E11.9 [place] [address] [place] [id number] [address] [place] [address] 15 Jun, 2018 [place] [address] [address] 13 Jun, 2018 [facility] [address] [address] 13 Jun, 2018 [facility] [address] [address] 07 Jun, 2018 [facility] [address] [address] Jun, [facility] [address] [address] 06 Jun, 2018 Paranoid schizophrenia F20.0 ; Type 2 diabetes mellitus without complication, without long-term current use of insulin E11.9 ; Hypothyroidism (acquired) E03.9 and Morbid obesity E66.01 [place] [address] [address] 28 May, 2018 Paranoid schizophrenia F20.0 [place] [address] [address] 20 May, 2018 Hypothyroidism (acquired) E0 3.9 and Dyslipidemia E78.5 [place] [address] [address] 19 May, 2018 Cigarette nicotine dependenc e without complication F17.210 [place] [address] [address] 18 May, 2018 [place] [address] [address] 14 May, 2018 Type 2 diabetes mellitus wit hout complication, without long-term current use of insulin E11.9 ; Essential hypertension I10 ; Hypothyroidism (acquired) E03.9 and Dyslipidemia E78.5 [place] [address] [address] 13 May, 2018 [place] [address] [address] 08 May, 2018 Schizoaffective disorder, de pressive type F25.1 [facility] [address] [address] 08 May, 2018 Paranoid schizophrenia F20.0 [place] [address] [address] 07 May, 2018 [facility] [address] [place] [address] 07 May, 19 [place] [address] [address] May, [place] [address] [address] May, Type 2 diabetes mellitus wit hout complication, without long-term current use of insulin E11.9 ; Essential hypertension I10 ; Hypothyroidism (acquired) E03.9 and Dyslipidemia E78.5 [place] [address] [address] May, [facility] [address] [address] May, Acute nasopharyngitis J00 [facility] [address] [address] May, Allergic rhinitis, unspecifi ed seasonality, unspecified trigger J30.9 [place] [address] [address] May, [facility] [address] [address] Apr, Schizoaffective disorder, de pressive type F25.1 [place] [address] [address] Apr, [facility] [address] [address] Apr, Cigarette nicotine dependenc e without complication F17.210 [facility] [address] [place] [id number] [address] [place] [address] Apr, [facility] [address] [place] [id number] [address] [place] [address] Apr, Cigarette nicotine dependenc e without complication F17.210 [facility] [address] [place] [id number] [address] [place] [address] Apr, [facility] [address] [place] [id number] [place] [address] Apr, Migraine without aura and wi thout status migrainosus, not intractable G43.009 [place] [address] [place] [id number] [place] [address] Apr, Migraine without aura and wi thout status migrainosus, not intractable G43.009 [facility] [address] [place] [id number] [address] [place] [address] Mar, Schizoaffective disorder, de pressive type F25.1 ; BMI 45.0-49.9, adult Z68.42 and BMI 40.0-44.9, adult Z68.41 [place] [address] [address] Mar, Primary insomnia F51.01 [facility] [address] [address] Mar, [facility] [address] [place] [id number] [place] [address] 14 Feb, 2018 Primary insomnia F51.01 [facility] [address] [place] [id number] [address] [place] [address] Feb, [facility] [address] [place] [id number] [address] [place] [address] 24 Jan, 2018 Schizoaffective disorder, de pressive type F25.1 and BMI 45.0-49.9, adult Z68.42 [facility] [address] [place] [id number] [address] [place] [phone] Jan, [place] [address] [address] 16 Jan, 2018 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, without long-term current use of insulin E11.610 ; Menopausal syndrome (hot flashes) N95.1 ; BMI 40.0-44.9, adult Z68.41 and Morbid obesity E66.01 [place] [address] [address] Jan, Paranoid schizophrenia F20.0 [place] [address] [place] [id number] [place] [address] Jan, [place] [address] [address] Jan, Schizoaffective disorder, de pressive type F25.1 [place] [address] [address] Jan, [place] [address] [address] Jan, Chronic obstructive pulmonar y disease, unspecified COPD type J44.9 ; BMI 45.0-49.9, adult Z68.42 ; Type 2 diabetes mellitus without complication, without long-term current use of insulin E11.9 ; Hypothyroidism (acquired) E03.9 ; Encounter for immunization Z23 ; Gastroesophageal reflux disease without esophagitis K21.9 ; Primary insomnia F51.01 and Acute nasopharyngitis J00 [place] [address] [place] [id number] [place] [phone] Dec, [place] [address] [address] Dec, Schizoaffective disorder, de pressive type F25.1 and BMI 45.0-49.9, adult Z68.42 [place] [address] [address] Dec, [place] [address] [id number] [address] [place] [address] 18 Dec, 2017 [facility] [address] [id number] [address] [place] [address] 18 Dec, 2017 Acute non-recurrent frontal sinusitis J01.10 [facility] [address] [id number] [address] [place] [id number] 18 Dec, 2017 Acute non-recurrent frontal sinusitis J01.10 ; Weakness of left leg R29.898 ; At high risk for falls Z91.81 and BMI 45.0-49.9, adult Z68.42 [facility] [address] [id number] [address] [place] [address] Dec, [facility] [address] [id number] [address] [place] [address] Dec, [facility] [address] [facility] [id number] [address] [place] [address] Dec, Schizoaffective disorder, de pressive type F25.1 [facility] [address] [id number] [address] [place] [address] Dec, Acute nasopharyngitis J00 [facility] [address] [id number] [address] [place] [address] 05 Dec, 2017 Schizoaffective disorder, de pressive type F25.1 [facility] [address] [id number] [address] [place] [address] Dec, [facility] [address] [id number] [address] [place] [address] Nov, Schizoaffective disorder, de pressive type F25.1 and BMI 45.0-49.9, adult Z68.42 [facility] [address] [id number] [address] [place] [phone] Nov, [facility] [address] [facility] [id number] [address] [place] [address] Nov, [place] [address] [place] [address] Nov, Schizoaffective disorder, de pressive type F25.1 [place] [address] [place] [id number] [address] [place] [address] Nov, Well woman exam Z01.419 ; BM I 45.0-49.9, adult Z68.42 ; Screening breast examination Z12.31 and Dietary counseling and surveillance Z71.3 [place] [address] [place] [id number] [address] [place] [address] Nov, Paranoid schizophrenia F20.[address] [address] Nov, Gastroesophageal reflux dise ase, esophagitis presence not specified K21.9 [place] [id number] [address] [place] [address] Oct, Paranoid schizophrenia F20.0 [id number] [place] [address] Oct, Chronic pain syndrome G89.4 and Schizoaf fective disorder, depressive type F25.1 [place] [address] [place] [address] Oct, Chronic pain syndrome G89.4 and Schizoaffective disorder, depressive type F25.1 [place] [address] [place] [id number] [address] [place] [address] 16 Oct, 2017 Type 2 diabetes mellitus wit hout complication, without long-term current use of insulin E11.9 [place] [address] [place] [id number] [address] [place] [address] 12 Oct, 2017 Essential hypertension I10 a nd DM neuro manif type II E11.49 [place] [address] [place] [id number] [address] [place] [address] Oct, [place] [address] [address] Oct, Schizoaffective disorder, de pressive type F25.1 and BMI 45.0-49.9, adult Z68.42 [facility] [address] [facility] [id number] [address] [place] [address] Oct, [facility] [address] [facility] [id number] [address] [place] [address] Oct, Paranoid schizophrenia F20.0 [facility] [address] [facility] [id number] [address] [place] [phone] Oct, 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0-49.9, adult Z68.42 [facility] [address] [place] [id number] [address] [place] [phone] Sep, Schizoaffective disorder, de pressive type F25.1 [facility] [address] [place] [id number] [address] [place] [phone] Sep, [facility] [address] [facility] [id number] [address] [place] [phone] Sep, Paranoid schizophrenia F20.0 [facility] [address] [facility] [id number] [address] [place] [phone] Sep, [facility] [address] [facility] [id number] [address] [place] [phone] 06 Sep, 2017 Hypothyroidism (acquired) E0 3.9 [facility] [address] [facility] [id number] [address] [place] [phone] Sep, [facility] [address] [facility] [id number] [address] [place] [phone] August, Schizoaffective disorder, de pressive type F25.1 [facility] [address] [facility] [facility] [id number] [address] [place] [phone] August, [facility] [address] [facility] [id number] [address] [place] [phone] August, [facility] [address] [facility] [id number] [address] [place] [address] August, [facility] [address] [place] [id number] [place] [address] August, Paranoid schizophrenia F20.0 [facility] [address] [place] [id number] [place] [address] August, History of lupus Z87.39 and Chronic pain syndrome G89.4 [facility] [address] [place] [id number] [address] [place] [phone] August, [facility] [address] [place] [id number] [place] [phone] August, Seasonal allergic rhinitis, unspecified trigger J30.2 and BMI 45.0-49.9, adult Z68.42 [facility] [address] [facility] [id number] [address] [place] [phone] Jul, Schizoaffective disorder, de pressive type F25.1 [facility] [address] [facility] [id number] [address] [place] [address] Jul, [facility] [address] [place] [id number] [place] [phone] Jul, Hypothyroidism (acquired) E0 3.9 [facility] [address] [facility] [id number] [address] [place] [phone] Jul, Chronic obstructive pulmonar y disease, unspecified COPD type J44.9 and Type 2 diabetes mellitus without complication, without long-term current use of insulin E11.9 [facility] [address] [address] Jul, Paranoid schizophrenia F20.0 [facility] [address] [address] Jun, Hypothyroidism (acquired) E0 3.9 and Seasonal allergic rhinitis due to pollen J30.1 [facility] [address] [place] [id number] [place] [address] Jun, Shortness of breath at rest R06.02 ; COPD exacerbation J44.1 and BMI 45.0-49.9, adult Z68.42 [facility] [address] [address] Jun, [facility] [address] [address] Jun, Paranoid schizophrenia F20.0 ; Depression with anxiety F41.8 and BMI 45.0-49.9, adult Z68.42 [facility] [address] [address] Jun, Schizoaffective disorder, de pressive type F25.1 [facility] [address] [place] [id number] [address] [place] [phone] Jun, Dental caries K02.9 [facility] [address] [address] Jun, Paranoid schizophrenia F20.0 [facility] [address] [address] May, Migraine without aura and wi thout status migrainosus, not intractable G43.009 ; DM neuro manif type II E11.49 and Type 2 diabetes mellitus without complication, without long-term current use of insulin E11.9 [facility] [address] [address] May, Migraine without aura and wi thout status migrainosus, not intractable G43.009 [facility] [address] [place] [id number] [place] [address] May, Depression with anxiety F41. 8 [facility] [address] [facility] [id number] [address] [place] [address] [id number] May, [facility] [address] [address] May, [facility] [address] [address] May, [place] [address] [address] May, Hypothyroidism (acquired) E0 3.9 [place] [address] [address] May, Paranoid schizophrenia F20.0 [facility] [address] [place] [id number] [address] [place] [address] May, Type 2 diabetes mellitus wit hout [...] N32.81 and Controlled substance agreement signed Z79.899 [place] [address] [address] May, Controlled substance agreeme nt signed Z79.899 [place] [address] [address] Apr, [facility] [address] [id number] [address] [place] [address] [id number] Apr, Dental examination Z01.20 [facility] [address] [facility] [id number] [address] [place] [address] Apr, Paranoid schizophrenia F20.0 [facility] [address] [facility] [id number] [address] [place] [phone] Apr, Hypertension, unspecified ty pe I10 [facility] [address] [facility] [id number] [address] [place] [address] Apr, Paranoid schizophrenia F20.0 [facility] [address] [facility] [id number] [address] [place] [phone] Apr, [facility] [address] [facility] [id number] [address] [place] [address] Apr, Tobacco abuse Z72.0 [facility] [address] [facility] [id number] [address] [place] [phone] Apr, [facility] [address] [facility] [id number] [address] [place] [address] Mar, [facility] [address] [place] [id number] [place] [phone] Mar, Paranoid schizophrenia F20.0 and BMI 45.0-49.9, adult Z68.42 [facility] [address] [facility] [id number] [address] [place] [address] Mar, Schizoaffective disorder, de pressive type F25.1 [facility] [address] [facility] [id number] [address] [place] [phone] Mar, [facility] [address] [facility] [id number] [address] [place] [address] Mar, Hypothyroidism, unspecified type E03.9 [facility] [address] [facility] [id number] [address] [place] [address] Mar, Schizoaffective disorder, de pressive type F25.1 [facility] [address] [facility] [id number] [address] [place] [phone] Feb, Gastroenteritis K52.9 and BM I 45.0-49.9, adult Z68.42 [facility] [address] [place] [id number] [place] [phone] Feb, [facility] [address] [facility] [id number] [address] [place] [phone] Feb, [facility] [address] [facility] [id number] [address] [place] [address] Feb, [facility] [address] [place] [id number] [place] [address] Feb, [facility] [address] [address] Feb, Paranoid schizophrenia F20.0 [facility] [address] [place] [id number] [place] [phone] Feb, Gastroesophageal reflux dise ase without esophagitis K21.9 ; Other seasonal allergic rhinitis J30.2 ; Other allergic rhinitis J30.89 ; Tobacco abuse Z72.0 and BMI 40.0-44.9, adult Z68.41 [facility] [id number] [place] [phone] Feb, Onychomycosis B35.1 ; Callus of foot L84 and DM neuro manif type II E11.49 [facility] [address] [facility] [id number] [address] [place] [address] Jan, Chronic allergic rhinitis J3 0.9 [facility] [address] [place] [id number] [place] [address] Jan, [facility] [address] [facility] [id number] [address] [place] [address] Jan, Schizoaffective disorder, de pressive type F25.1 [facility] [address] [place] [id number] [address] [place] [phone] 10 Jan, 2017 [facility] [address] [place] [id number] [place] [phone] 07 Jan, 2017 Sore throat J02.9 and Season al allergic rhinitis due to other allergic trigger J30.89 [facility] [address] [place] [id number] [place] [phone] 04 Jan, 2017 [facility] [address] [place] [id number] [place] [phone] 04 Jan, 2017 [facility] [address] [place] [id number] [place] [address] Jan, Chronic allergic rhinitis J3 0.9 [facility] [address] [place] [id number] [place] [phone] 27 Dec, 2016 Paranoid schizophrenia F20.0 ; Primary insomnia F51.01 and Schizoaffective disorder, depressive type F25.1 [facility] [address] [address] Dec, Chronic pain syndrome G89.4 ; Cervicalgia of sqddhuup-eerbxdp-swqha region M54.2 ; Menopausal syndrome (hot flashes) N95.1 and Encounter for immunization Z23 [facility] [address] [place] [id number] [place] [phone] 14 Dec, 2016 [place] [address] [address] 13 Dec, 2016 [place] [address] [place] [id number] [place] [phone] 08 Dec, 2016 Paranoid schizophrenia F20.0 [place] [address] [place] [id number] [place] [phone] Dec, Schizoaffective disorder, de pressive type F25.1 [place] [address] [place] [id number] [place] [address] Nov, Hypothyroidism, unspecified type E03.9 [facility] [address] [facility] [id number] [address] [place] [phone] Nov, Acute seasonal allergic rhin itis due to other allergen J30.89 [facility] [address] [facility] [id number] [address] [place] [address] Nov, [facility] [address] [facility] [id number] [address] [place] [phone] Nov, Hypothyroidism, unspecified type E03.9 and Other elevated white blood cell (WBC) count D72.828 [place] [address] [facility] [id number] [address] [place] [address] Nov, Schizoaffective disorder, de pressive type F25.1 [facility] [address] [place] [id number] [place] [phone] Nov, Paranoid schizophrenia F20.0 [place] [address] [place] [id number] [place] [phone] Nov, Type 2 diabetes mellitus wit hout complication, without long-term current use of insulin E11.9 ; Morbid obesity due to excess calories E66.01 and Chronic pain syndrome G89.4 [facility] [address] [place] [id number] [place] [address] Oct, Paranoid schizophrenia F20.0 [facility] [address] [place] [id number] [place] [address] Oct, [place] [address] [place] [id number] [place] [address] Oct, Schizoaffective disorder, de pressive type F25.1 [facility] [address] [place] [id number] [place] [address] Oct, Hypothyroidism, unspecified type E03.9 and Other elevated white blood cell (WBC) count D72.828 [facility] [address] [place] [id number] [place] [address] Oct, Morbid obesity due to excess calories E66.01 ; Chronic obstructive pulmonary disease, unspecified COPD type J44.9 ; History of lupus Z87.39 ; Hypothyroidism, unspecified type E03.9 ; Gastroesophageal reflux disease without esophagitis K21.9 ; Primary insomnia F51.01 and Chronic pain syndrome G89.4 [facility] [address] [facility] [id number] [address] [place] [phone] Sep, [facility] [address] [facility] [id number] [address] [place] [phone] Sep, [facility] [address] [facility] [id number] [address] [place] [phone] Sep, [facility] [address] [facility] [id number] [address] [place] [address] Sep, Paranoid schizophrenia F20.0 [facility] [address] [facility] [id number] [address] [place] [address] Sep, [facility] [address] [facility] [id number] [address] [place] [address] Sep, Paranoid schizophrenia F20.0 [facility] [address] [facility] [id number] [address] [place] [phone] Sep, [facility] [address] [facility] [id number] [address] [place] [address] August, Paranoid schizophrenia F20.0 [facility] [address] [facility] [id number] [address] [place] [address] Jul, [facility] [address] [facility] [id number] [address] [place] [address] Jul, Type 2 diabetes mellitus wit hout complication, without long-term current use of insulin E11.9 ; Morbid obesity due to excess calories E66.01 ; Depression with anxiety F41.8 ; Hypothyroidism, unspecified type E03.9 ; Seasonal allergic rhinitis due to other allergic trigger J30.89 ; Pain, dental K08.89 and Gastroesophageal reflux disease without esophagitis K21.9 [facility] [address] [id number] [address] [place] [address] [id number] Jul, 2016 Dental examination Z01.20 [place] [address] [address] 07 Jul, 2016 Paranoid schizophrenia F20.0 [place] [address] [address] 13 Jun, 2016 Paranoid schizophrenia F20.0 and Depression with anxiety F41.8 [place] [address] [address] 10 Jun, 2016 Paranoid schizophrenia F20.0 and Depression with anxiety F41.8 [place] [address] [address] 09 Jun, 2016 [place] [address] [address] Jun, [facility] [place] [address] [address] Jun, Seasonal allergic rhinitis d ue to other allergic trigger J30.89 [facility] [place] [address] [address] May, Sore throat J02.9 ; Other vi ral agents as the cause of diseases classified elsewhere B97.89 and Acute upper respiratory infection, unspecified J06.9 [place] [address] [address] May, Paranoid schizophrenia F20.0 and Depression with anxiety F41.8 [place] [address] [place] [id number] [place] [address] Apr, Other seasonal allergic rhin itis J30.2 [place] [address] [place] [id number] [place] [address] Apr, Paranoid schizophrenia F20.0 and Depression with anxiety F41.8 [facility] IN [place] [address] [address] Apr, Bronchitis J40 and Sore thro at J02.9 [facility] [address] [address] Apr, Type 2 diabetes mellitus wit hout complication, without long-term current use of insulin E11.9 [facility] [address] [place] [id number] [address] [place] [phone] Apr, Bronchitis J40 [facility] [address] [address] Apr, [facility] [address] [address] Apr, [facility] [address] [address] Mar, Type 2 diabetes mellitus wit hout [...] R60.9 and Other seasonal allergic rhinitis J30.2 [place] [address] [place] [id number] [address] [place] [phone] Mar, Paranoid schizophrenia F20.0 and Depression with anxiety F41.8 [facility] [address] [place] [id number] [address] [place] [address] Feb, [place] [address] [address] Feb, [place] [address] [address] Feb, [place] [address] [address] Feb, [facility] [address] [id number] [address] [place] [address] 14 Feb, 2016 Type 2 diabetes mellitus wit hout complication, without long-term current use of insulin E11.9 ; ARIAS on CPAP G47.33 and Preoperative evaluation to rule out surgical contraindication Z01.818 [facility] [address] [id number] [address] [place] [phone] 09 Feb, 2016 Paranoid schizophrenia F20.0 and Depression with anxiety F41.8 [facility] [address] [id number] [address] [place] [address] 18 Jan, 2016 [facility] [address] [id number] [address] [place] [address] 18 Jan, 2016 Paranoid schizophrenia F20.0 and Depression with anxiety F41.8 [facility] [address] [id number] [address] [place] [address] 17 Jan, 2016 [facility] [address] [id number] [address] [place] [id number] 14 Jan, 2016 Muscle strain T14.8 [facility] [address] [id number] [address] [place] [address] 10 Jan, 2016 Paranoid schizophrenia F20.0 [facility] [address] [id number] [address] [place] [phone] 07 Jan, 2016 [facility] [address] [id number] [address] [place] [phone] 05 Jan, 2016 Paranoid schizophrenia F20.0 and Depression with anxiety F41.8 [facility] [address] [id number] [address] [place] [phone] 05 Jan, 2016 [facility] [address] [id number] [address] [place] [phone] Jan, [facility] [address] [id number] [address] [place] [phone] Dec, [facility] [address] [id number] [address] [place] [id number] Dec, Paranoid schizophrenia F20.0 [facility] [address] [id number] [address] [place] [address] 16 Dec, 2015 Paranoid schizophrenia F20.0 and Depression with anxiety F41.8 [facility] [address] [id number] [address] [place] [address] Nov, [facility] [address] [id number] [address] [place] [phone] Nov, Paranoid schizophrenia F20.0 [facility] [address] [id number] [address] [place] [address] Nov, Paranoid schizophrenia F20.0 and Depression with anxiety F41.8 [facility] [address] [id number] [address] [place] [address] Nov, Type 2 diabetes mellitus wit hout complication, without long-term current use of insulin E11.9 ; Paranoid schizophrenia F20.0 ; Chronic obstructive pulmonary disease, unspecified COPD type J44.9 ; Morbid obesity due to excess calories E66.01 and Parkinsonian tremor G20 [facility] [address] [id number] [address] [place] [phone] Nov, [facility] [address] [id number] [address] [place] [phone] Oct, Paranoid schizophrenia F20.0 [facility] [address] [id number] [address] [place] [address] Oct, Paranoid schizophrenia F20.0 [facility] [address] [id number] [address] [place] [phone] Oct, Paranoid schizophrenia F20.0 and Depression with anxiety F41.8 [facility] [address] [id number] [address] [place] [address] Oct, [facility] [address] [id number] [address] [place] [address] Oct, Paranoid schizophrenia F20.0 and Depression with anxiety F41.8 [place] [address] [place] [id number] [place] [address] Oct, Nasal sore J34.89 [facility] [address] [facility] [id number] [address] [place] [address] Oct, Type 2 diabetes mellitus wit hout complication, without long-term current use of insulin E11.9 ; Depression with anxiety F41.8 ; Hypothyroidism, unspecified type E03.9 and History of lupus Z87.39 [place] [address] [place] [id number] [place] [address] Oct, [place] [address] [place] [id number] [place] [address] Oct, Type 2 diabetes mellitus wit hout [...] edema R60.9 and History of lupus Z87.39 [place] [address] [place] [id number] [place] [phone] Feb, [place] [address] [place] [id number] [place] [phone] Jan, [place] [address] [place] [id number] [place] [phone] Jan, [place] [address] [place] [id number] [place] [address] Jan, [place] [address] [place] [id number] [place] [phone] Dec, [place] [address] [place] [id number] [place] [address] [place] [phone] Nov, [facility] [address] [id number] [address] [place] [address], [place] [address] Nov, [facility] [address] [id number] [address] [place] [address], [place] [address] Oct, [facility] [address] [id number] [address] [place] [address], [place] [address] Oct, [facility] [address] [id number] [address] [place] [phone] Oct, [facility] [address] [id number] [address] [place] [phone] Sep, Allergic rhinitis 477.9 [facility] [address] [id number] [address] [place] [address], [place] [address] Sep, Rhinitis, allergic 477.9 [facility] [address] [id number] [address] [place] [phone] Sep, Rhinitis, allergic 477.9 [facility] [address] [id number] [address] [place] [address], [place] [address] Sep, [facility] [address] [id number] [address] [place] [phone] August, [facility] [address] [id number] [address] [place] [phone] August, [facility] [address] [id number] [address] [place] [phone] August, [facility] [address] [id number] [address] [place] [address], [place] [address] Jul, [facility] [address] [id number] [address] [place] [id number] 14 Jul, 2014 [facility] [address] [id number] [address] [place] [id number] Jul, [facility] [address] [id number] [address] [place] [address] [place] [id number] 16 Jun, 2014 [facility] [address] [id number] [address] [place] [address], [place] [phone] 16 Jun, 2014 [facility] [address] [id number] [address] [place] [address], [place] [address] 12 Jun, 2014 [facility] [address] [id number] [address] [place] [address], [place] [id number] 12 Jun, 2014 [facility] [address] [address] [id number] [address] [place] [address], [place] [address] 11 Jun, 2014 [facility] [address] [id number] [address] [place] [address], [place] [address] Jun, [facility] [address] [id number] [address] [place] [address], [place] [address] Jun, [facility] [address] [id number] [address] [place] [address], [place] [address] Jun, [facility] [address] [id number] [address] [place] [address], [place] [address] May, [facility] [address] [id number] [address] [place] [address], [place] [address] May, [facility] [address] [id number] [address] [place] [address], [place] [address] May, [facility] [address] [id number] [address] [place] [address], [place] [address] May, [facility] [address] [id number] [address] [place] [address], [place] [address] Apr, [facility] [address] [id number] [address] [place] [address], [place] [address] Mar, [facility] [address] [id number] [address] [place] [address], [place] [address] Mar, [facility] [address] [id number] [address] [place] [address], [place] [address] Mar, [facility] [address] [id number] [address] [place] [address], [place] [address] Mar, [facility] [address] [id number] [address] [place] [address], [place] [address] Mar, [facility] [address] [id number] [address] [place] [address], [place] [address] Mar, [facility] [address] [id number] [address] [place] [address], [place] [address] Mar, [facility] [address] [id number] [address] [place] [address], [place] [address] Mar, [facility] [address] [id number] [address] [place] [address], [place] [address] Mar, [facility] [address] [id number] [address] [place] [address], [place] [address] Feb, [facility] [address] [id number] [address] [place] [address], [place] [address] Feb, [facility] [address] [id number] [address] [place] [address], [place] [address] Feb, [facility] [address] [id number] [address] [place] [address], [place] [address] Feb, [facility] [address] [id number] [address] [place] [address], [place] [address] 14 Feb, 2014 [facility] [address] [id number] [address] [place] [address], [place] [address] 14 Feb, 2014 [facility] [address] [id number] [address] [place] [address], [place] [address] Feb, [facility] [address] [id number] [address] [place] [address], [place] [address] Feb, [facility] [address] [id number] [address] [place] [address], [place] [address] Jan, [facility] [address] [id number] [address] [place] [address], [place] [address] 23 Jan, 2014 [facility] [address] [id number] [address] [place] [address], [place] [address] 16 Jan, 2014 [facility] [address] [id number] [address] [place] [address], [place] [address] 16 Jan, 2014 [facility] [address] [id number] [address] [place] [address], [place] [address] 15 Jan, 2014 [facility] [address] [id number] [address] [place] [address], [place] [address] 15 Jan, 2014 [facility] [address] [id number] [address] [place] [address], [place] [address] 14 Jan, 2014 [facility] [address] [id number] [address] [place] [address], [place] [address] 14 Jan, 2014 [facility] [address] [id number] [address] [place] [address], [place] [address] 14 Jan, 2014 [facility] [address] [id number] [address] [place] [address], [place] [address] 14 Jan, 2014 [facility] [address] [id number] [address] [place] [address], [place] [address] 18 Dec, 2013 [facility] [address] [id number] [address] [place] [address], [place] [address] 18 Dec, 2013 [facility] [address] [id number] [address] [place] [address], [place] [address] 10 Dec, 2013 [facility] [address] [id number] [address] [place] [address], [place] [address] 10 Dec, 2013 [facility] [address] [id number] [address] [place] [address], [place] [address] Nov, [facility] [address] [id number] [address] [place] [address], [place] [address] Nov, [facility] [address] [id number] [address] [place] [address], [place] [address] Nov, [facility] [address] [id number] [address] [place] [address], [place] [address] Nov, [facility] [address] [id number] [address] [place] [address], [place] [address] Nov, [facility] [address] [id number] [address] [place] [address], [place] [address] Oct, [facility] [address] [id number] [address] [place] [address], [place] [address] Oct, [facility] [address] [id number] [address] [place] [address], [place] [address] Oct, [facility] [address] [id number] [address] [place] [address], [place] [address] Oct, [facility] [address] [id number] [address] [place] [address], [place] [address] Sep, [facility] [address] [id number] [address] [place] [address], [place] [address] Sep, [facility] [address] [id number] [address] [place] [address], [place] [address] Sep, [facility] [address] [id number] [address] [place] [address], [place] [address] Sep, [facility] [address] [id number] [address] [place] [address], [place] [address] Sep, [facility] [address] [id number] [address] [place] [address], [place] [address] Sep, [facility] [address] [id number] [address] [place] [address], [place] [address] Sep, [facility] [address] [id number] [address] [place] [address], [place] [address] Sep, [facility] [address] [id number] [address] [place] [address], [place] [address] August, [facility] [address] [id number] [address] [place] [address], [place] [address] August, [facility] [address] [id number] [facility] [place] [address] August, [facility] [address] [id number] [address] [place] [address], [place] [address] August, [facility] [address] [id number] [address] [place] [address], [place] [address] August, [facility] [address] [id number] [address] [place] [address], [place] [address] August, [facility] [address] [id number] [address] [place] [address], [place] [address] August, [facility] [address] [id number] [address] [place] [address], [place] [address] Jul, [facility] [address] [id number] [address] [place] [address], [place] [address] Jul, [facility] [address] [id number] [address] [place] [address], [place] [address] Jul, [facility] [address] [id number] [address] [place] [address], [place] [address] Jul, [facility] [address] [id number] [address] [place] [address], [place] [address] Jul, [facility] [address] [id number] [address] [place] [address], [place] [address] Jul, [facility] [address] [id number] [address] [place] [address], [place] [address] Jul, [facility] [address] [id number] [address] [place] [address], [place] [address] Jul, [facility] [address] [id number] [address] [place] [address], [place] [address] Jul, [facility] [address] [id number] [address] [place] [address], [place] [address] Jul, [facility] [address] [id number] [address] [place] [address], [place] [address] Jul, [facility] [address] [id number] [address] [place] [address], [place] [address] Jul, [facility] [address] [id number] [address] [place] [address], [place] [address] Jun, [facility] [address] [id number] [address] [place] [address], [place] [address] Jun, [facility] [address] [id number] [address] [place] [address], [place] [address] Jun, [facility] [address] [id number] [address] [place] [address], [place] [address] Jun, [facility] [address] [id number] [address] [place] [address], [place] [address] Jun, [facility] [address] [id number] [address] [place] [address], [place] [address] May, [facility] [address] [id number] [address] [place] [address], [place] [address] May, [facility] [address] [id number] [address] [place] [address], [place] [address] May, [facility] [address] [id number] [address] [place] [address], [place] [address] May, [facility] [address] [id number] [address] [place] [address], [place] [address] May, [facility] [address] [id number] [address] [place] [address], [place] [address] May, [facility] [address] [id number] [address] [place] [address], [place] [address] May, [facility] [address] [id number] [address] [place] [address], [place] [address] May, [facility] [address] [id number] [address] [place] [address], [place] [address] Mar, [facility] [address] [id number] [address] [place] [address], [place] [address] Mar, [facility] [address] [id number] [address] [place] [address], [place] [address] Mar, [facility] [address] [id number] [address] [place] [address], [place] [address] Mar, [facility] [address] [id number] [address] [place] [address], [place] [address] Mar, [facility] [address] [id number] [address] [place] [address], [place] [address] Mar, [facility] [address] [id number] [address] [place] [address], [place] [address] Feb, [facility] [address] [id number] [address] [place] [address], [place] [address] Feb, [facility] [address] [id number] [address] [place] [address], [place] [address] Jan, [facility] [address] [id number] [address] [place] [address], [place] [address] Jan, [facility] [address] [id number] [address] [place] [address] Jan, [facility] [address] [id number] [address] [place] [address] Jan, [facility] [address] [id number] [address] [place] [address] Jan, [facility] [address] [id number] [address] [place] [address], [place] [address] Jan, [facility] [address] [id number] [address] [place] [address], [place] [address] Jan, [facility] [address] [id number] [address] [place] [address] Jan, [facility] [address] [id number] [address] [place] [address] [place] [address] Jan, [facility] [address] [id number] [address] [place] [address], [place] [address] Jan, [facility] [address] [id number] [address] [place] [address], [place] [address] Dec, [facility] [address] [id number] [address] [place] [address], [place] [address] Nov, [facility] [address] [id number] [address] [place] [address], [place] [address] Nov, [facility] [address] [id number] [address] [place] [address], [place] [address] Nov, [facility] [address] [id number] [address] [place] [address], [place] [address] Oct, [facility] [address] [id number] [address] [place] [address], [place] [address] Oct, [facility] [address] [id number] [address] [place] [address], [place] [address] August, [facility] [address] [id number] [address] [place] [address], [place] [address] Apr, [facility] [address] [id number] [address] [place] [address], [place] [address] Apr, [facility] [address] [id number] [address] [place] [address], [place] [address] Feb, [facility] [address] [id number] [address] [place] [address], [place] [address] Feb, [facility] [address] [id number] [address] [place] [address], [place] [address] Dec, [facility] [address] [id number] [address] [place] [address], [place] [address] Dec, [facility] [address] [id number] [address] [place] [address], [place] [address] Oct, [facility] [address] [facility] [id number] [address] [place] [address] Oct, [facility] [address] [facility] [id number] [address] [place] [address] Oct, [facility] [address] [facility] [id number] [address] [place] [address] Jul, IMMUNIZATIONS No Known Immunizations SOCIAL HISTORY [...] psychosis/mental illness, last one in [facility] 4 years ago Hospitalization History broken ankle 08/2018
--- OUTSIDE RECORDS SUMMARY | 2019-07-07 04:13 | XMS REPORT ---
Author Author Alayna ROJAS Organization [facility] Address [address] [place] [address] Care Team Providers Care [place] Hammerer Name Role Phone RADHA ROJAS Unavailable PROBLEMS Type Condition ICD9-CM Code AQD05-EQ Code Onset Dates Condition S tatus SNOMED Code Problem Morbid obesity due to excess calories E66.01 Active 818782337 Problem Paranoid schizophrenia F20.0 Active 41120682 Problem Chronic pain syndrome G89.4 Active 074506613 Problem History of lupus Z87.39 Active 312 136661 Problem Type 2 diabetes mellitus wit hout complication, without long-term current use of insulin E11.9 Active 212947147 Problem Gastroesophageal reflux disease without esophagitis K21.9 Active 263417869 Problem OAB (overactive bladder) N32.81 Activ e 305884467 Problem Hypothyroidism (acquired) E03.9 Acti ve 490005473 Problem Essential hypertension I10 Active 85251872 Problem Chronic obstructive pulmonary disease, unspecified COPD ty pe J44.9 Active 35701748 Problem Depression with anxiety F41.8 Active 414976097 Problem Menopausal syndrome (hot flashes) N95.1 Active 470400836 Problem DM neuro manif type II E11.49 Active 40193051 Problem Other seasonal allergic rhinitis J30.2 Active 088981089 Problem Other allergic rhinitis J30.89 Active 644427688 Problem Gastroesophageal reflux disease, esophagitis pre sence not specified K21.9 Active 110261439 Problem Tobacco abuse Z72.0 Active 387072 000 Problem Dyslipidemia E78.5 Active 1554568 07 Problem Migraine without aura and without status migrain osus, not intractable G43.009 Active 753600601 Problem COPD exacerbation J44.1 Active 19 8487282 Problem Seasonal allergic rhinitis due to pollen J30.1 Active 32481282 Problem Diabetic polyneuropathy associated with type 2 d iabetes mellitus E11.42 Active 304087827 Problem BMI 31.0-31.9,adult Z68.31 Active 235626680 Problem Schizoaffective disorder, depressive type F25.1 Active 30881614 Problem Vaginal dryness, menopausal N95.1 Ac tive 17214006 Problem Seasonal allergic rhinitis due to other allergic trigger J30.89 Active 831406352 Problem Primary insomnia F51.01 Active 397 2004 Problem 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, without long-term current use of insulin E11.610 Active 788918809 Problem Cigarette nicotine dependence without complication F17.210 Active 97091222 Problem Allergic rhinitis, unspecified seasonality, unspecifie d trigger J30.9 Active 03094208 Problem Constipation by delayed colonic transit K59.01 Active 53450249 ALLERGIES No Information ENCOUNTERS Encounter Location Date Diagnosis [facility] [address] [facility] [id number] [address] [place] [id number] Mar, [facility] [address] [facility] [id number] [address] [place] [address] Dec, [facility] [address] [facility] [id number] [address] [place] [phone] Dec, [facility] [address] [place] [id number] [address] [place] [address] Dec, [facility] [address] [facility] [id number] [address] [place] [id number] 19 Dec, 2018 Type 2 diabetes mellitus wit h [...] abuse Z72.0 and Encounter for immunization Z23 [place] [id number] [facility] [id number] [address] [place] [id number] 19 Dec, 2018 Encounter for immunization Z 23 [facility] [address] [facility] [id number] [address] [place] [phone] Dec, [facility] [address] [place] [id number] [address] [place] [id number] 13 Dec, 2018 [facility] [address] [id number] [address] [place] [address] Dec, [facility] [address] [id number] [address] [place] [phone] Dec, [facility] [address] [id number] [address] [place] [id number] Dec, [facility] [address] [id number] [address] [place] [id number] Dec, [facility] [address] [id number] [address] [place] [id number] Nov, Paranoid schizophrenia F20.0 [facility] [address] [id number] [address] [place] [id number] Nov, [facility] [address] [id number] [address] [place] [phone] Nov, [facility] [address] [id number] [address] [place] [phone] Nov, [facility] [address] [facility] [id number] [address] [place] [phone] Nov, Encounter for comprehensive diabetic foot examination, type 2 diabetes mellitus E11.9 and Morbid obesity E66.01 [facility] [address] [id number] [address] [place] [id number] Nov, [facility] [address] [id number] [address] [place] [id number] Nov, [facility] [address] [id number] [address] [place] [phone] Nov, [facility] [address] [facility] [id number] [address] [place] [phone] Nov, Schizoaffective disorder, de pressive type F25.1 [facility] [address] [id number] [address] [place] [id number] Nov, Constipation by delayed colo james transit K59.01 [facility] [address] [facility] [id number] [address] [place] [address] Oct, [facility] [address] [facility] [id number] [address] [place] [id number] Oct, [facility] [address] [facility] [id number] [address] [place] [phone] Oct, [facility] [address] [facility] [id number] [address] [place] [phone] Oct, Chronic obstructive pulmonar y disease, unspecified COPD type J44.9 [facility] [address] [facility] [id number] [address] [place] [address] Oct, [facility] [address] [place] [id number] [address] [place] [address] Sep, Paranoid schizophrenia F20.0 [facility] [address] [place] [id number] [address] [place] [id number] Sep, [facility] [address] [place] [id number] [address] [place] [phone] Sep, [facility] [address] [place] [id number] [address] [place] [id number] Sep, Encounter for immunization Z 23 [facility] [address] [place] [id number] [address] [place] [address] Sep, Closed fracture of right ank le, sequela S82.891S ; Morbid obesity E66.01 and Heat rash L74.0 [facility] [address] [facility] [id number] [address] [place] [id number] Sep, [facility] [address] [facility] [id number] [address] [place] [address] Sep, Schizoaffective disorder, de pressive type F25.1 [facility] [address] [place] [id number] [address] [place] [id number] 18 Sep, 2018 [facility] [address] [id number] [address] [place] [phone] Sep, [facility] [address] [id number] [address] [place] [id number] 14 Sep, 2018 [facility] [address] [id number] [address] [place] [phone] Sep, [facility] [address] [id number] [address] [place] [phone] Sep, [facility] [address] [id number] [address] [place] [phone] Sep, [facility] [address] [id number] [address] [place] [id number] Sep, [facility] [address] [id number] [address] [place] [id number] Sep, [facility] [address] [id number] [address] [place] [id number] Sep, [facility] [address] [id number] [address] [place] [phone] August, Paranoid schizophrenia F20.0 [facility] [address] [id number] [address] [place] [id number] August, [facility] [address] [id number] [address] [place] [phone] August, [facility] [address] [id number] [address] [place] [phone] August, [facility] [address] [id number] [address] [place] [address] August, Type 2 diabetes mellitus wit hout complication, without long-term current use of insulin E11.9 ; Closed fracture of right ankle, initial encounter S82.891A ; Constipation by delayed colonic transit K59.01 ; Osteoporosis with pathological fracture, initial encounter M80.00XA ; Encounter for immunization Z23 and Morbid obesity E66.01 [facility] [address] [facility] [id number] [address] [place] [id number] August, [facility] [address] [facility] [id number] [address] [place] [id number] August, [facility] [address] [facility] [id number] [address] [place] [id number] August, Acquired deformity of muscul oskeletal system, unspecified M95.9 [facility] [address] [facility] [id number] [address] [place] [phone] August, Paranoid schizophrenia F20.0 [facility] [id number] [id number] [address] [place] [address] August, [place] [address] [facility] [id number] [address] [place] [id number] Jul, [place] [address] [facility] [id number] [address] [place] [address] Jul, Diabetic polyneuropathy asso ciated with type 2 diabetes mellitus E11.42 ; Paranoid schizophrenia F20.0 ; Preoperative clearance Z01.818 and Morbid obesity E66.01 [place] [address] [facility] [id number] [address] [place] [address] Jul, Paranoid schizophrenia F20.0 [place] [address] [facility] [id number] [address] [place] [address] Jul, [facility] [address] [facility] [id number] [address] [place] [address] Jul, [facility] [address] [facility] [id number] [address] [place] [address] Jul, Cigarette nicotine dependenc e without complication F17.210 [facility] [address] [facility] [id number] [address] [place] [id number] Jul, Type 2 diabetes mellitus wit hout complication, without long-term current use of insulin E11.9 and Hypothyroidism (acquired) E03.9 [place] [address] [address] 01 Jul, 2018 Encounter for Medicare annua wellness exam Z00.00 ; Morbid obesity due to excess calories E66.01 ; Diabetic polyneuropathy associated with type 2 diabetes mellitus E11.42 ; Chronic obstructive pulmonary disease, unspecified COPD type J44.9 ; Schizoaffective disorder, depressive type F25.1 ; Hypothyroidism (acquired) E03.9 and Morbid obesity E66.01 [place] [address] [id number] 28 Jun, 2018 Gastroesophageal reflux dise ase without esophagitis K21.9 [place] [address] [id number] 28 Jun, 2018 Paranoid schizophrenia F20.0 [place] [address] [address] Jun, Schizoaffective disorder, de pressive type F25.1 [place] [address] [address] Jun, [place] [address] [address] Jun, Schizoaffective disorder, de pressive type F25.1 [place] [address] [address] Jun, Cigarette nicotine dependenc e without complication F17.210 [place] [address] [address] 18 Jun, 2018 Type 2 diabetes mellitus wit hout complication, without long-term current use of insulin E11.9 [place] [address] [address] 15 Jun, 2018 [place] [address] [id number] 13 Jun, 2018 [place] [address] [address] Jun, [facility] [address] [facility] [id number] [address] [place] [address] Jun, [facility] [address] [facility] [id number] [address] [place] [phone] Jun, [facility] [address] [facility] [id number] [address] [place] [address] Jun, Paranoid schizophrenia F20.0 ; Type 2 diabetes mellitus without complication, without long-term current use of insulin E11.9 ; Hypothyroidism (acquired) E03.9 and Morbid obesity E66.01 [facility] [address] [facility] [id number] [address] [place] [id number] 28 May, 2018 Paranoid schizophrenia F20.0 [facility] [address] [facility] [id number] [address] [place] [id number] 20 May, 2018 Hypothyroidism (acquired) E0 3.9 and Dyslipidemia E78.5 [facility] [address] [place] [id number] [address] [place] [address] 19 May, 2018 Cigarette nicotine dependenc e without complication F17.210 [facility] [address] [facility] [id number] [address] [place] [id number] 18 May, 2018 [facility] [address] [facility] [id number] [address] [place] [phone] 14 May, 2018 Type 2 diabetes mellitus wit hout complication, without long-term current use of insulin E11.9 ; Essential hypertension I10 ; Hypothyroidism (acquired) E03.9 and Dyslipidemia E78.5 [facility] [address] [facility] [id number] [address] [place] [id number] 13 May, 2018 [facility] [address] [place] [id number] [address] [place] [id number] 08 May, 2018 Schizoaffective disorder, de pressive type F25.1 [facility] [address] [place] [id number] [address] [place] [id number] 08 May, 2018 Paranoid schizophrenia F20.0 [place] [id number] [place] [id number] [address] [place] [address] 07 May, 2018 [facility] [address] [place] [address] 07 May, 20 19 [facility] [address] [address] May, [place] [address] [address] May, Type 2 diabetes mellitus wit hout complication, without long-term current use of insulin E11.9 ; Essential hypertension I10 ; Hypothyroidism (acquired) E03.9 and Dyslipidemia E78.5 [place] [address] [address] May, [place] [address] [address] May, Acute nasopharyngitis J00 [facility] [address] [address] May, Allergic rhinitis, unspecifi ed seasonality, unspecified trigger J30.9 [place] [address] [address] May, [facility] [address] [address] Apr, Schizoaffective disorder, de pressive type F25.1 [place] [address] [address] Apr, [place] [address] [address] Apr, Cigarette nicotine dependenc e without complication F17.210 [place] [address] [address] Apr, [place] [address] [address] Apr, Cigarette nicotine dependenc e without complication F17.210 [facility] [address] [facility] [id number] [address] [place] [address] Apr, [facility] [address] [place] [id number] [address] [place] [address] Apr, Migraine without aura and wi thout status migrainosus, not intractable G43.009 [place] [address] [place] [id number] [address] [place] [address] Apr, Migraine without aura and wi thout status migrainosus, not intractable G43.009 [place] [address] [place] [id number] [address] [place] [address] Mar, Schizoaffective disorder, de pressive type F25.1 ; BMI 45.0-49.9, adult Z68.42 and BMI 40.0-44.9, adult Z68.41 [place] [address] [address] Mar, Primary insomnia F51.01 [place] [address] [place] [id number] [place] [address] Mar, [place] [address] [place] [id number] [place] [address] Feb, Primary insomnia F51.01 [place] [address] [place] [id number] [address] [place] [address] Feb, [place] [address] [place] [id number] [address] [place] [address] Jan, Schizoaffective disorder, de pressive type F25.1 and BMI 45.0-49.9, adult Z68.42 [place] [address] [place] [id number] [address] [place] [address] Jan, [place] [address] [place] [id number] [address] [place] [address] Jan, 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, without long-term current use of insulin E11.610 ; Menopausal syndrome (hot flashes) N95.1 ; BMI 40.0-44.9, adult Z68.41 and Morbid obesity E66.01 [facility] [address] [address] Jan, Paranoid schizophrenia F20.0 [place] [address] [address] Jan, [place] [address] [address] Jan, Schizoaffective disorder, de pressive type F25.1 [place] [address] [address] Jan, [place] [address] [address] Jan, Chronic obstructive pulmonar y disease, unspecified COPD type J44.9 ; BMI 45.0-49.9, adult Z68.42 ; Type 2 diabetes mellitus without complication, without long-term current use of insulin E11.9 ; Hypothyroidism (acquired) E03.9 ; Encounter for immunization Z23 ; Gastroesophageal reflux disease without esophagitis K21.9 ; Primary insomnia F51.01 and Acute nasopharyngitis J00 [place] [address] [address] Dec, [place] [address] [address] Dec, Schizoaffective disorder, de pressive type F25.1 and BMI 45.0-49.9, adult Z68.42 [place] [address] [address] Dec, [place] [address] [address] Dec, [facility] [address] [address] Dec, Acute non-recurrent frontal sinusitis J01.10 [facility] [address] [id number] [address] [place] [id number] 18 Dec, 2017 Acute non-recurrent frontal sinusitis J01.10 ; Weakness of left leg R29.898 ; At high risk for falls Z91.81 and BMI 45.0-49.9, adult Z68.42 [facility] [address] [id number] [address] [place] [address] Dec, [facility] [address] [id number] [address] [place] [address] Dec, [facility] [address] [id number] [address] [place] [address] Dec, Schizoaffective disorder, de pressive type F25.1 [facility] [address] [id number] [address] [place] [address] Dec, Acute nasopharyngitis J00 [facility] [address] [id number] [address] [place] [address] Dec, Schizoaffective disorder, de pressive type F25.1 [facility] [address] [id number] [address] [place] [address] Dec, [facility] [address] [id number] [address] [place] [address] Nov, Schizoaffective disorder, de pressive type F25.1 and BMI 45.0-49.9, adult Z68.42 [facility] [address] [id number] [address] [place] [address] Nov, [facility] [address] [facility] [id number] [address] [place] [address] Nov, [facility] [address] [id number] [address] [place] [id number] Nov, Schizoaffective disorder, de pressive type F25.1 [place] [id number] [place] [address] 16 Nov, 2017 Well woman exam Z01.419 ; BM I 45.0-49.9, adult Z68.42 ; Screening breast examination Z12.31 and Dietary counseling and surveillance Z71.3 [place] [address] [place] [id number] [address] [place] [address] 10 Nov, 2017 Paranoid schizophrenia F20.0 [place] [address] [address] 09 Nov, 2017 Gastroesophageal reflux dise ase, esophagitis presence not specified K21.9 [place] [address] [address] 24 Oct, 2017 Paranoid schizophrenia F20.[id number] [place] [address] 18 Oct, 2017 Chronic pain syndrome G89.4 and Schizoaf fective disorder, depressive type F25.1 [place] [address] [place] [id number] [address] [place] [address] 18 Oct, 2017 Chronic pain syndrome G89.4 and Schizoaffective disorder, depressive type F25.1 [place] [address] [address] 16 Oct, 2017 Type 2 diabetes mellitus wit hout complication, without long-term current use of insulin E11.9 [place] [address] [place] [id number] [address] [place] [address] 12 Oct, 2017 Essential hypertension I10 a nd DM neuro manif type II E11.49 [place] [address] [address] 11 Oct, 2017 [place] [address] [address] 11 Oct, 2017 Schizoaffective disorder, de pressive type F25.1 and BMI 45.0-49.9, adult Z68.42 [place] [address] [place] [id number] [place] [address] Oct, [facility] [address] [facility] [id number] [address] [place] [id number] Oct, Paranoid schizophrenia F20.0 [facility] [address] [facility] [id number] [address] [place] [address] Oct, 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, without long-term current use of insulin E11.610 ; Essential hypertension I10 ; Hypothyroidism (acquired) E03.9 ; Chronic obstructive pulmonary disease, unspecified COPD type J44.9 and Diabetic polyneuropathy associated with type 2 diabetes mellitus E11.42 [facility] [address] [facility] [id number] [address] [place] [phone] Sep, Paranoid schizophrenia F20.0 [facility] [address] [place] [id number] [address] [place] [phone] Sep, Paranoid schizophrenia F20.0 and BMI 45.0-49.9, adult Z68.42 [facility] [address] [place] [id number] [address] [place] [id number] Sep, Schizoaffective disorder, de pressive type F25.1 [facility] [address] [place] [id number] [address] [place] [id number] Sep, [facility] [address] [place] [id number] [address] [place] [id number] Sep, Paranoid schizophrenia F20.0 [facility] [address] [facility] [id number] [address] [place] [phone] Sep, [facility] [address] [facility] [id number] [address] [place] [id number] Sep, Hypothyroidism (acquired) E0 3.9 [facility] [address] [facility] [id number] [address] [place] [phone] Sep, [facility] [address] [place] [id number] [address] [place] [id number] August, Schizoaffective disorder, de pressive type F25.1 [facility] [address] [id number] August, [facility] [address] [phone] August, [facility] [address] [address] August, [facility] [address] [address] August, Paranoid schizophrenia F20.0 [place] [address] [address] August, History of lupus Z87.39 and Chronic pain syndrome G89.4 [place] [address] [address] August, [facility] [address] [address] August, Seasonal allergic rhinitis, unspecified trigger J30.2 and BMI 45.0-49.9, adult Z68.42 [place] [address] [address] Jul, Schizoaffective disorder, de pressive type F25.1 [place] [address] [address] Jul, [facility] [address] [address] Jul, Hypothyroidism (acquired) E0 3.9 [place] [address] [address] Jul, Chronic obstructive pulmonar y disease, unspecified COPD type J44.9 and Type 2 diabetes mellitus without complication, without long-term current use of insulin E11.9 [place] [address] [address] Jul, Paranoid schizophrenia F20.0 [facility] [address] [address] Jun, Hypothyroidism (acquired) E0 3.9 and Seasonal allergic rhinitis due to pollen J30.1 [facility] [address] [place] [id number] [address] [place] [address] Jun, Shortness of breath at rest R06.02 ; COPD exacerbation J44.1 and BMI 45.0-49.9, adult Z68.42 [facility] [address] [address] Jun, [facility] [address] [address] Jun, Paranoid schizophrenia F20.0 ; Depression with anxiety F41.8 and BMI 45.0-49.9, adult Z68.42 [facility] [address] [address] Jun, Schizoaffective disorder, de pressive type F25.1 [facility] [address] [place] [id number] [address] [place] [id number] Jun, Dental caries K02.9 [facility] [address] [address] Jun, Paranoid schizophrenia F20.0 [facility] [address] [address] May, Migraine without aura and wi thout status migrainosus, not intractable G43.009 ; DM neuro manif type II E11.49 and Type 2 diabetes mellitus without complication, without long-term current use of insulin E11.9 [facility] [address] [address] May, Migraine without aura and wi thout status migrainosus, not intractable G43.009 [facility] [address] [address] May, Depression with anxiety F41. 8 [facility] [address] [place] [id number] [address] [place] [id number] May, [facility] [address] [place] [id number] [address] [place] [address] May, [facility] [address] [address] May, [place] [id number] [address] May, Hypothyroidism (acquired) E0 3.9 [place] [address] [address] May, Paranoid schizophrenia F20.0 [place] [address] [address] May, Type 2 diabetes mellitus wit hout [...] Controlled substance agreement signed Z79.899 [place] [address] [place] [id number] [address] [place] [address] May, Controlled substance agreeme nt signed Z79.899 [place] [address] [place] [id number] [address] [place] [address] Apr, [facility] [address] [place] [id number] [address] [place] [address] [id number] Apr, Dental examination Z01.20 [place] [id number] N [facility] [id number] [address] [place] [address] Apr, Paranoid schizophrenia F20.0 [facility] [address] [facility] [id number] [address] [place] [id number] Apr, Hypertension, unspecified ty pe I10 [facility] [address] [facility] [id number] [address] [place] [address] Apr, Paranoid schizophrenia F20.0 [facility] [address] [facility] [id number] [address] [place] [id number] Apr, [facility] [address] [facility] [id number] [address] [place] [phone] Apr, Tobacco abuse Z72.0 [facility] [address] [facility] [id number] [address] [place] [address] Apr, [facility] [address] [facility] [id number] [address] [place] [phone] Mar, [facility] [address] [facility] [id number] [address] [place] [address] Mar, Paranoid schizophrenia F20.0 and BMI 45.0-49.9, adult Z68.42 [facility] [address] [facility] [id number] [address] [place] [address] Mar, Schizoaffective disorder, de pressive type F25.1 [facility] [address] [facility] [id number] [address] [place] [id number] Mar, [facility] [address] [facility] [id number] [address] [place] [id number] Mar, Schizoaffective disorder, de pressive type F25.1 [facility] [address] [facility] [id number] [address] [place] [address] Mar, Hypothyroidism, unspecified type E03.9 [facility] [address] [facility] [id number] [address] [place] [id number] Feb, Gastroenteritis K52.9 and BM I 45.0-49.9, adult Z68.42 [facility] [address] [address] Feb, [facility] [address] [place] [id number] [place] [address] Feb, [facility] [address] [address] Feb, [facility] [address] [address] Feb, [place] [address] [address] Feb, Paranoid schizophrenia F20.0 [facility] [address] [address] Feb, Gastroesophageal reflux dise ase without esophagitis K21.9 ; Other seasonal allergic rhinitis J30.2 ; Other allergic rhinitis J30.89 ; Tobacco abuse Z72.0 and BMI 40.0-44.9, adult Z68.41 [place] [address] [address] Feb, Onychomycosis B35.1 ; Callus of foot L84 and DM neuro manif type II E11.49 [place] [address] [address] Jan, Chronic allergic rhinitis J3 0.9 [facility] [address] [place] [id number] [place] [address] Jan, [facility] [address] [address] Jan, Schizoaffective disorder, de pressive type F25.1 [facility] [address] [place] [id number] [address] [place] [address] Jan, [facility] [address] [place] [id number] [place] [phone] 07 Jan, 2017 Sore throat J02.9 and Season al allergic rhinitis due to other allergic trigger J30.89 [facility] [address] [id number] [address] [place] [id number] Jan, [facility] [address] [id number] [address] [place] [address] Jan, [facility] [address] [id number] [address] [place] [address] Jan, Chronic allergic rhinitis J3 0.9 [facility] [address] [id number] [address] [place] [address] Dec, Paranoid schizophrenia F20.0 ; Primary insomnia F51.01 and Schizoaffective disorder, depressive type F25.1 [place] [id number] [facility] [id number] [address] [place] [address] Dec, Chronic pain syndrome G89.4 ; Cervicalgia of ligkfouj-gtmnnwy-eyogb region M54.2 ; Menopausal syndrome (hot flashes) N95.1 and Encounter for immunization Z23 [facility] [address] [id number] [address] [place] [address] 14 Dec, 2016 [facility] [address] [id number] [address] [place] [id number] Dec, [facility] [address] [id number] [address] [place] [address] 08 Dec, 2016 Paranoid schizophrenia F20.0 [facility] [address] [id number] [address] [place] [id number] Dec, Schizoaffective disorder, de pressive type F25.1 [facility] [address] [id number] [address] [place] [id number] Nov, Hypothyroidism, unspecified type E03.9 [facility] [address] [id number] [address] [place] [id number] Nov, Acute seasonal allergic rhin itis due to other allergen J30.89 [place] [address] [facility] [id number] [address] [place] [address] Nov, [place] [address] [facility] [id number] [address] [place] [id number] Nov, Hypothyroidism, unspecified type E03.9 and Other elevated white blood cell (WBC) count D72.828 [place] [address] [facility] [id number] [address] [place] [id number] Nov, Schizoaffective disorder, de pressive type F25.1 [place] [address] [facility] [id number] [address] [place] [id number] Nov, Paranoid schizophrenia F20.0 [place] [address] [facility] [id number] [address] [place] [address] Nov, Type 2 diabetes mellitus wit hout complication, without long-term current use of insulin E11.9 ; Morbid obesity due to excess calories E66.01 and Chronic pain syndrome G89.4 [place] [address] [facility] [id number] [address] [place] [phone] Oct, Paranoid schizophrenia F20.0 [place] [address] [facility] [id number] [address] [place] [phone] Oct, [place] [address] [facility] [id number] [address] [place] [id number] Oct, Schizoaffective disorder, de pressive type F25.1 [place] [address] [facility] [id number] [address] [place] [address] Oct, Hypothyroidism, unspecified type E03.9 and Other elevated white blood cell (WBC) count D72.828 [place] [address] [facility] [id number] [address] [place] [address] Oct, Morbid obesity due to excess calories E66.01 ; Chronic obstructive pulmonary disease, unspecified COPD type J44.9 ; History of lupus Z87.39 ; Hypothyroidism, unspecified type E03.9 ; Gastroesophageal reflux disease without esophagitis K21.9 ; Primary insomnia F51.01 and Chronic pain syndrome G89.4 [facility] [address] [id number] [address] [place] [id number] 30 Sep, 2016 [facility] [address] [id number] [address] [place] [id number] Sep, [facility] [address] [id number] [address] [place] [address] Sep, [facility] [address] [id number] [address] [place] [id number] Sep, Paranoid schizophrenia F20.0 [facility] [address] [id number] [address] [place] [address] Sep, [facility] [address] [id number] [address] [place] [address] Sep, Paranoid schizophrenia F20.0 [facility] [address] [id number] [address] [place] [id number] Sep, [facility] [address] [id number] [address] [place] [id number] August, Paranoid schizophrenia F20.0 [facility] [address] [id number] [address] [place] [id number] Jul, [facility] [address] [id number] [address] [place] [phone] Jul, Type 2 diabetes mellitus wit hout complication, without long-term current use of insulin E11.9 ; Morbid obesity due to excess calories E66.01 ; Depression with anxiety F41.8 ; Hypothyroidism, unspecified type E03.9 ; Seasonal allergic rhinitis due to other allergic trigger J30.89 ; Pain, dental K08.89 and Gastroesophageal reflux disease without esophagitis K21.9 [facility] [address] [id number] [address] [place] [id number] 12 Jul, 2016 Dental examination Z01.20 [facility] [address] [id number] [address] [place] [id number] 07 Jul, 2016 Paranoid schizophrenia F20.0 [place] [address] [address] 13 Jun, 2016 Paranoid schizophrenia F20.0 and Depression with anxiety F41.8 [place] [address] [address] 10 Jun, 2016 Paranoid schizophrenia F20.0 and Depression with anxiety F41.8 [place] [address] [address] 09 Jun, [address] [address] Jun, [facility] [address] [address] Jun, Seasonal allergic rhinitis d ue to other allergic trigger J30.89 [facility] [address] [address] May, Sore throat J02.9 ; Other vi ral agents as the cause of diseases classified elsewhere B97.89 and Acute upper respiratory infection, unspecified J06.[address] [address] 08 May, 2016 Paranoid schizophrenia F20.0 and Depression with anxiety F41.[address] [address] Apr, Other seasonal allergic rhin itis J30.[address] [address] Apr, Paranoid schizophrenia F20.0 and Depression with anxiety F41.8 [facility] [address] [address] 07 Apr, 2016 Bronchitis J40 and Sore thro at J02.9 [place] [address] [address] Apr, Type 2 diabetes mellitus wit hout complication, without long-term current use of insulin E11.9 [facility] [address] [facility] [id number] [address] [place] [address] Apr, Bronchitis J40 [facility] [address] [facility] [id number] [address] [place] [id number] Apr, [facility] [address] [facility] [id number] [address] [place] [address] Apr, [facility] [address] [facility] [id number] [address] [place] [address] Mar, Type 2 diabetes mellitus wit hout [...] Other seasonal allergic rhinitis J30.2 [place] [address] [place] [id number] [address] [place] [address] Mar, Paranoid schizophrenia F20.0 and Depression with anxiety F41.8 [facility] [address] [facility] [id number] [address] [place] [address] Feb, [facility] [address] [facility] [id number] [address] [place] [phone] Feb, [facility] [address] [facility] [id number] [address] [place] [id number] Feb, [facility] [address] [place] [id number] [address] [place] [address] Feb, [facility] [address] [facility] [id number] [address] [place] [id number] Feb, Type 2 diabetes mellitus wit hout complication, without long-term current use of insulin E11.9 ; ARIAS on CPAP G47.33 and Preoperative evaluation to rule out surgical contraindication Z01.818 [facility] [address] [id number] [address] [place] [phone] 09 Feb, 2016 Paranoid schizophrenia F20.0 and Depression with anxiety F41.8 [facility] [address] [id number] [address] [place] [id number] 18 Jan, 2016 [facility] [address] [id number] [address] [place] [id number] 18 Jan, 2016 Paranoid schizophrenia F20.0 and Depression with anxiety F41.8 [facility] [address] [id number] [address] [place] [id number] 17 Jan, 2016 [facility] [address] [id number] [address] [place] [id number] 14 Jan, 2016 Muscle strain T14.8 [facility] [address] [id number] [address] [place] [id number] 10 Jan, 2016 Paranoid schizophrenia F20.0 [facility] [address] [id number] [address] [place] [address] Jan, [facility] [address] [id number] [address] [place] [address] Jan, Paranoid schizophrenia F20.0 and Depression with anxiety F41.8 [facility] [address] [id number] [address] [place] [id number] 05 Jan, 2016 [facility] [address] [id number] [address] [place] [phone] Jan, [facility] [address] [id number] [address] [place] [id number] 28 Dec, 2015 [facility] [address] [id number] [address] [place] [id number] 23 Dec, 2015 Paranoid schizophrenia F20.0 [facility] [address] [id number] [address] [place] [address] Dec, Paranoid schizophrenia F20.0 and Depression with anxiety F41.8 [facility] [address] [id number] [address] [place] [id number] Nov, [facility] [address] [id number] [address] [place] [id number] Nov, Paranoid schizophrenia F20.0 [facility] [address] [id number] [address] [place] [id number] Nov, Paranoid schizophrenia F20.0 and Depression with anxiety F41.8 [facility] [address] [id number] [address] [place] [id number] Nov, Type 2 diabetes mellitus wit hout complication, without long-term current use of insulin E11.9 ; Paranoid schizophrenia F20.0 ; Chronic obstructive pulmonary disease, unspecified COPD type J44.9 ; Morbid obesity due to excess calories E66.01 and Parkinsonian tremor G20 [facility] [address] [id number] [address] [place] [address] Nov, [facility] [address] [id number] [address] [place] [address] Oct, Paranoid schizophrenia F20.0 [facility] [address] [id number] [address] [place] [id number] Oct, Paranoid schizophrenia F20.0 [facility] [address] [id number] [address] [place] [address] Oct, Paranoid schizophrenia F20.0 and Depression with anxiety F41.8 [facility] [address] [id number] [address] [place] [phone] Oct, [facility] [address] [id number] [address] [place] [id number] Oct, Paranoid schizophrenia F20.0 and Depression with anxiety F41.8 [facility] [address] [facility] [id number] [address] [place] [address] Oct, Nasal sore J34.89 [facility] [address] [place] [id number] [address] [place] [address] Oct, Type 2 diabetes mellitus wit hout complication, without long-term current use of insulin E11.9 ; Depression with anxiety F41.8 ; Hypothyroidism, unspecified type E03.9 and History of lupus Z87.39 [facility] [address] [address] Oct, [facility] [address] [address] Oct, Type 2 diabetes mellitus wit hout [...] and History of lupus Z87.39 [place] [address] [address] Feb, [place] [address] [address] Jan, [place] [address] [address] Jan, [place] [address] [address] Jan, [place] [address] [address] Dec, [facility] [address] [place] [id number] [address] [place] [phone] Nov, [place] [address] [address] Nov, [facility] [address] [id number] [address] [place] [address], [place] [address] Oct, [facility] [address] [id number] [address] [place] [address], [place] [address] Oct, [facility] [address] [id number] [address] [place] [address], [place] [address] Oct, [facility] [address] [id number] [address] [place] [id number] Sep, Allergic rhinitis 477.9 [facility] [address] [id number] [address] [place] [address], [place] [address] Sep, Rhinitis, allergic 477.9 [facility] [address] [id number] [address] [place] [address], [place] [address] Sep, Rhinitis, allergic 477.9 [facility] [address] [id number] [address] [place] [address], [place] [address] Sep, [facility] [address] [id number] [address] [place] [phone] August, [facility] [address] [id number] [address] [place] [address], [place] [address] August, [facility] [address] [id number] [address] [place] [phone] August, [facility] [address] [id number] [address] [place] [address], [place] [address] 28 Jul, 2014 [facility] [address] [id number] [address] [place] [address], [place] [address] 14 Jul, 2014 [facility] [address] [id number] [address] [place] [address], [place] [address] 13 Jul, 2014 [facility] [address] [id number] [address] [place] [address], [place] [address] 16 Jun, 2014 [facility] [address] [id number] [address] [place] [id number] 16 Jun, 2014 [facility] [address] [id number] [address] [place] [address], [place] [address] Jun, [facility] [address] [id number] [address] [place] [address], [place] [address] Jun, [facility] [address] [id number] [address] [place] [address], [place] [address] Jun, [facility] [address] [id number] [address] [place] [address], [place] [address] Jun, [facility] [address] [id number] [address] [place] [address], [place] [address] Jun, [facility] [address] [id number] [address] [place] [address], [place] [address] Jun, [facility] [address] [id number] [address] [place] [address], [place] [address] May, [facility] [address] [id number] [address] [place] [address], [place] [address] May, [facility] [address] [id number] [address] [place] [address], [place] [address] May, [facility] [address] [id number] [address] [place] [address], [place] [address] May, [facility] [address] [id number] [address] [place] [address], [place] [address] Apr, [facility] [address] [id number] [address] [place] [address], [place] [address] Mar, [facility] [address] [id number] [address] [place] [address], [place] [address] Mar, [facility] [address] [id number] [address] [place] [address], [place] [address] Mar, [facility] [address] [id number] [address] [place] [address], [place] [address] Mar, [facility] [address] [id number] [address] [place] [address], [place] [address] 06 Mar, 2014 [facility] [address] [id number] [address] [place] [address], [place] [address] 06 Mar, 2014 [facility] [address] [id number] [address] [place] [address], [place] [address] 05 Mar, 2014 [facility] [address] [id number] [address] [place] [address], [place] [address] Mar, [facility] [address] [id number] [address] [place] [address], [place] [address] Mar, [facility] [address] [id number] [address] [place] [address], [place] [address] Feb, [facility] [address] [id number] [address] [place] [address], [place] [address] Feb, [facility] [address] [id number] [address] [place] [address], [place] [address] Feb, [facility] [address] [id number] [address] [place] [address], [place] [address] 17 Feb, 2014 [facility] [address] [id number] [address] [place] [address], [place] [address] Feb, [facility] [address] [id number] [address] [place] [address], [place] [address] Feb, [facility] [address] [id number] [address] [place] [address], [place] [address] Feb, [facility] [address] [id number] [address] [place] [address], [place] [address] Feb, [facility] [address] [id number] [address] [place] [address], [place] [address] Jan, [facility] [address] [id number] [address] [place] [address], [place] [address] Jan, [facility] [address] [id number] [address] [place] [address], [place] [address] 16 Jan, 2014 [facility] [address] [id number] [address] [place] [address], [place] [address] 16 Jan, 2014 [facility] [address] [id number] [address] [place] [address], [place] [address] 15 Jan, 2014 [facility] [address] [id number] [address] [place] [address], [place] [address] 15 Jan, 2014 [facility] [address] [id number] [address] [place] [address], [place] [address] 14 Jan, 2014 [facility] [address] [id number] [address] [place] [address], [place] [address] 14 Jan, 2014 [facility] [address] [id number] [address] [place] [address], [place] [address] 14 Jan, 2014 [facility] [address] [id number] [address] [place] [address], [place] [address] 14 Jan, 2014 [facility] [address] [id number] [address] [place] [address], [place] [address] 18 Dec, 2013 [facility] [address] [id number] [address] [place] [address], [place] [address] 18 Dec, 2013 [facility] [address] [id number] [address] [place] [address], [place] [address] 10 Dec, 2013 [facility] [address] [id number] [address] [place] [address], [place] [address] 10 Dec, 2013 [facility] [address] [id number] [address] [place] [address], [place] [address] Nov, [facility] [address] [id number] [address] [place] [address], [place] [address] Nov, [facility] [address] [id number] [address] [place] [address], [place] [address] Nov, [facility] [address] [id number] [address] [place] [address], [place] [address] Nov, [facility] [address] [id number] [address] [place] [address], [place] [address] Nov, [facility] [address] [id number] [facility] [place] [address] Oct, [facility] [address] [id number] [address] [place] [address], [place] [address] Oct, [facility] [address] [id number] [address] [place] [address], [place] [address] Oct, [facility] [address] [id number] [address] [place] [address], [place] [address] Oct, [facility] [address] [id number] [address] [place] [address], [place] [address] Sep, [facility] [address] [id number] [address] [place] [address], [place] [address] Sep, [facility] [address] [id number] [address] [place] [address], [place] [address] Sep, [facility] [address] [id number] [address] [place] [address], [place] [address] Sep, [facility] [address] [id number] [address] [place] [address], [place] [address] Sep, [facility] [address] [id number] [address] [place] [address], [place] [address] Sep, [facility] [address] [id number] [address] [place] [address], [place] [address] Sep, [facility] [address] [id number] [address] [place] [address], [place] [address] Sep, [facility] [address] [id number] [address] [place] [address], [place] [address] August, [facility] [address] [id number] [address] [place] [address], [place] [address] August, [facility] [address] [id number] [address] [place] [address], [place] [address] August, [facility] [address] [id number] [facility] [place] [address] August, [facility] [address] [id number] [address] [place] [address], [place] [address] August, [facility] [address] [id number] [address] [place] [address], [place] [address] August, [facility] [address] [id number] [address] [place] [address], [place] [address] August, [facility] [address] [id number] [address] [place] [address], [place] [address] Jul, [facility] [address] [id number] [address] [place] [address], [place] [address] Jul, [facility] [address] [id number] [address] [place] [address], [place] [address] Jul, [facility] [address] [id number] [address] [place] [address], [place] [address] Jul, [facility] [address] [id number] [address] [place] [address], [place] [address] Jul, [facility] [address] [id number] [address] [place] [address], [place] [address] Jul, [facility] [address] [id number] [address] [place] [address], [place] [address] Jul, [facility] [address] [id number] [address] [place] [address], [place] [address] Jul, [facility] [address] [id number] [address] [place] [address], [place] [address] Jul, [facility] [address] [id number] [address] [place] [address], [place] [address] Jul, [facility] [address] [id number] [address] [place] [address], [place] [address] Jul, [facility] [address] [id number] [address] [place] [address], [place] [address] Jul, [facility] [address] [id number] [address] [place] [address], [place] [address] Jun, [facility] [address] [id number] [address] [place] [address], [place] [address] Jun, [facility] [address] [id number] [address] [place] [address], [place] [address] Jun, [facility] [address] [id number] [address] [place] [address], [place] [address] Jun, [facility] [address] [id number] [address] [place] [address], [place] [address] Jun, [facility] [address] [id number] [address] [place] [address], [place] [address] May, [facility] [address] [id number] [address] [place] [address], [place] [address] May, [facility] [address] [id number] [address] [place] [address], [place] [address] May, [facility] [address] [id number] [address] [place] [address], [place] [address] May, [facility] [address] [id number] [address] [place] [address], [place] [address] May, [facility] [address] [id number] [address] [place] [address], [place] [address] May, [facility] [address] [id number] [address] [place] [address], [place] [address] May, [facility] [address] [id number] [address] [place] [address], [place] [address] May, [facility] [address] [id number] [address] [place] [address], [place] [address] Mar, [facility] [address] [id number] [address] [place] [address], [place] [address] Mar, [facility] [address] [id number] [address] [place] [address], [place] [address] Mar, [facility] [address] [id number] [address] [place] [address], [place] [address] Mar, [facility] [address] [id number] [address] [place] [address], [place] [address] Mar, [facility] [address] [id number] [address] [place] [address], [place] [address] Mar, [facility] [address] [id number] [address] [place] [address], [place] [address] Feb, [facility] [address] [id number] [address] [place] [address], [place] [address] Feb, [facility] [address] [id number] [address] [place] [address], [place] [address] Jan, [facility] [address] [id number] [address] [place] [address], [place] [address] Jan, [facility] [address] [id number] [address] [place] [address], [place] [address] Jan, [facility] [address] [id number] [address] [place] [address], [place] [address] Jan, [facility] [address] [id number] [address] [place] [address] Jan, [facility] [address] [id number] [address] [place] [address], [place] [address] Jan, [facility] [address] [id number] [address] [place] [address] Jan, [facility] [address] [id number] [address] [place] [address], [place] [address] Jan, [facility] [address] [id number] [address] [place] [address], [place] [address] 08 Jan, 2013 [facility] [address] [id number] [address] [place] [address] Jan, [facility] [address] [id number] [address] [place] [address], [place] [address] Dec, [facility] [address] [id number] [address] [place] [address], [place] [address] Nov, [facility] [address] [id number] [address] [place] [address], [place] [address] Nov, [facility] [address] [id number] [address] [place] [address], [place] [address] Nov, [facility] [address] [id number] [address] [place] [address], [place] [address] Oct, [facility] [address] [id number] [address] [place] [address], [place] [address] Oct, [facility] [address] [id number] [address] [place] [address], [place] [address] August, [facility] [address] [id number] [address] [place] [address], [place] [address] Apr, [facility] [address] [id number] [address] [place] [address], [place] [address] Apr, [facility] [address] [id number] [address] [place] [address], [place] [address] Feb, [facility] [address] [id number] [address] [place] [address], [place] [address] Feb, [facility] [address] [id number] [address] [place] [address], [place] [address] Dec, [facility] [address] [id number] [address] [place] [address], [place] [address] Dec, [facility] [address] [id number] [address] [place] [address], [place] [address] Oct, [facility] [address] [id number] [address] [place] [address], [place] [address] Oct, [facility] [address] [id number] [address] [place] [address] Oct, [facility] [address] [facility] [id number] [address] [address] Jul, IMMUNIZATIONS No Known Immunizations SOCIAL HISTORY [...] psychosis/mental illness, last one in [facility] 4 years ago Hospitalization History broken ankle 08/2018
--- OUTSIDE RECORDS SUMMARY | 2019-07-07 04:14 | XMS REPORT ---
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 Name Role Phone RADHA ROJAS Unavailable PROBLEMS Type Condition ICD9-CM Code IOD58-PD Code Onset Dates Condition S tatus SNOMED Code Problem Depression with anxiety F41.8 Active 235342458 Problem Morbid obesity due to excess calories E66.01 Active 870447449 Problem Chronic obstructive pulmonary disease, unspecified COPD ty pe J44.9 Active 96232393 Problem Paranoid schizophrenia F20.0 Active 03912639 Problem Chronic pain syndrome G89.4 Active 102369578 Problem History of lupus Z87.39 Active 312 990336 Problem Type 2 diabetes mellitus wit hout complication, without long-term current use of insulin E11.9 Active 916176041 Problem Dyslipidemia E78.5 Active 4286603 07 Problem Migraine without aura and without status migrain osus, not intractable G43.009 Active 187980947 Problem Primary insomnia F51.01 Active 397 2004 Problem Schizoaffective disorder, depressive type F25.1 Active 76822529 Problem Menopausal syndrome (hot flashes) N95.1 Active 798841378 Problem DM neuro manif type II E11.49 Active 22072156 Problem Other seasonal allergic rhinitis J30.2 Active 139204838 Problem Other allergic rhinitis J30.89 Active 188550983 Problem Gastroesophageal reflux disease, esophagitis pre sence not specified K21.9 Active 694483718 Problem Tobacco abuse Z72.0 Active 357629 000 Problem Essential hypertension I10 Active 31743511 Problem Hypothyroidism (acquired) E03.9 Acti ve 219862573 Problem COPD exacerbation J44.1 Active 19 0467389 Problem Allergic rhinitis, unspecified seasonality, unspecifie d trigger J30.9 Active 16252201 Problem Gastroesophageal reflux disease without esophagitis K21.9 Active 469215196 Problem Constipation by delayed colonic transit K59.01 Active 68014824 Problem OAB (overactive bladder) N32.81 Activ e 457423409 Problem Seasonal allergic rhinitis due to other allergic trigger J30.89 Active 860946395 Problem Seasonal allergic rhinitis due to pollen J30.1 Active 87163884 Problem 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, without long-term current use of insulin E11.610 Active 864322025 Problem Diabetic polyneuropathy associated with type 2 d iabetes mellitus E11.42 Active 911458643 Problem Cigarette nicotine dependence without complication F17.210 Active 56442438 ALLERGIES No Information ENCOUNTERS Encounter Location Date Diagnosis [facility] [place] [address] [id number] [address] [place] [phone] Dec, [facility] [place] [address] [id number] [address] [place] [id number] Dec, [facility] [place] [address] [facility] [id number] [address] [place] [phone] Dec, [facility] [place] [address] [facility] [id number] [address] [place] [phone] Dec, [facility] [place] [address] [facility] [id number] [address] [place] [phone] Dec, [facility] [place] [address] [facility] [id number] [address] [place] [phone] Dec, [facility] [place] [address] [facility] [id number] [address] [place] [phone] Dec, [facility] [place] [address] [id number] [address] [place] [phone] Nov, Paranoid schizophrenia F20.0 [facility] [place] [address] [id number] [address] [place] [id number] Nov, [facility] [place] [address] [id number] [address] [place] [id number] Nov, [facility] [place] [address] [facility] [id number] [address] [place] [phone] Nov, [facility] [place] [address] [facility] [id number] [address] [place] [phone] Nov, Encounter for comprehensive diabetic foot examination, type 2 diabetes mellitus E11.9 and Morbid obesity E66.01 [facility] [place] [address] [facility] [id number] [address] [place] [phone] Nov, [facility] [place] [address] [facility] [id number] [address] [place] [phone] Nov, [facility] [place] [address] [facility] [id number] [address] [place] [phone] Nov, [facility] [place] [address] [facility] [id number] [address] [place] [phone] Nov, Schizoaffective disorder, de pressive type F25.1 [facility] [place] [address] [facility] [id number] [address] [place] [phone] Nov, Constipation by delayed colo james transit K59.01 [facility] [place] [address] [facility] [id number] [address] [place] [phone] Oct, [facility] [place] [address] [facility] [id number] [address] [place] [phone] Oct, [facility] [place] [address] [facility] [id number] [address] [place] [phone] Oct, [facility] [place] [address] [facility] [id number] [address] [place] [phone] Oct, Chronic obstructive pulmonar y disease, unspecified COPD type J44.9 [facility] [place] [address] [facility] [id number] [address] [place] [phone] Oct, [facility] [place] [address] [facility] [id number] [address] [place] [phone] Sep, Paranoid schizophrenia F20.0 [facility] [place] [address] [facility] [id number] [address] [place] [phone] Sep, [facility] [place] [address] [facility] [id number] [address] [place] [phone] Sep, [facility] [place] [address] [id number] [address] [place] [phone] 24 Sep, 2018 Encounter for immunization Z 23 [facility] [place] [address] [id number] [address] [place] [id number] 24 Sep, 2018 Closed fracture of right ank le, sequela S82.891S ; Morbid obesity E66.01 and Heat rash L74.0 [facility] [place] [address] [id number] [address] [place] [id number] Sep, [facility] [place] [address] [id number] [address] [place] [phone] Sep, Schizoaffective disorder, de pressive type F25.1 [facility] [place] [address] [id number] [address] [place] [phone] 18 Sep, 2018 [facility] [place] [address] [id number] [address] [place] [id number] Sep, [facility] [place] [address] [id number] [address] [place] [phone] Sep, [facility] [place] [address] [id number] [address] [place] [phone] Sep, [facility] [place] [address] [facility] [id number] [address] [place] [id number] Sep, [facility] [place] [address] [facility] [id number] [address] [place] [phone] Sep, [facility] [place] [address] [id number] [address] [place] [phone] Sep, [facility] [place] [address] [id number] [address] [place] [phone] 05 Sep, 2018 [facility] [place] [address] [facility] [id number] [address] [place] [phone] Sep, [facility] [place] [address] [facility] [id number] [address] [place] [id number] August, Paranoid schizophrenia F20.0 [facility] [place] [address] [facility] [id number] [address] [place] [phone] August, [facility] [place] [address] [facility] [id number] [address] [place] [phone] August, [facility] [place] [address] [facility] [id number] [address] [place] [phone] August, [facility] [place] [address] [facility] [id number] [address] [place] [id number] August, Type 2 diabetes mellitus wit hout complication, without long-term current use of insulin E11.9 ; Closed fracture of right ankle, initial encounter S82.891A ; Constipation by delayed colonic transit K59.01 ; Osteoporosis with pathological fracture, initial encounter M80.00XA ; Encounter for immunization Z23 and Morbid obesity E66.01 [facility] [place] [address] [place] [id number] [address] [place] [phone] August, [facility] [place] [address] [place] [id number] [address] [place] [id number] August, [facility] [place] [address] [place] [id number] [address] [place] [phone] August, Acquired deformity of muscul oskeletal system, unspecified M95.9 [facility] [place] [address] [facility] [id number] [address] [place] [phone] August, Paranoid schizophrenia F20.0 [facility] [address] [place] [id number] [address] [address] August, [facility] [place] [address] [facility] [id number] [address] [place] [phone] Jul, [facility] [place] [address] [facility] [id number] [address] [place] [phone] Jul, Diabetic polyneuropathy asso ciated with type 2 diabetes mellitus E11.42 ; Paranoid schizophrenia F20.0 ; Preoperative clearance Z01.818 and Morbid obesity E66.01 [facility] [place] [address] [place] [id number] [address] [place] [phone] Jul, Paranoid schizophrenia F20.0 [facility] [place] [address] [place] [id number] [address] [place] [phone] Jul, [facility] [place] [address] [place] [id number] [address] [place] [phone] Jul, [facility] [place] [address] [place] [id number] [place] [phone] Jul, Cigarette nicotine dependenc e without complication F17.210 [place] [address] [place] [id number] [place] [phone] Jul, Type 2 diabetes mellitus wit hout complication, without long-term current use of insulin E11.9 and Hypothyroidism (acquired) E03.9 [place] [address] [phone] Jul, [facility].00 ; Morbid obesity due to excess calories E66.01 ; Diabetic polyneuropathy associated with type 2 diabetes mellitus E11.42 ; Chronic obstructive pulmonary disease, unspecified COPD type J44.9 ; Schizoaffective disorder, depressive type F25.1 ; Hypothyroidism (acquired) E03.9 and Morbid obesity E66.01 [facility] [place] [address] [place] [id number] [address] [place] [phone] Jun, Gastroesophageal reflux dise ase without esophagitis K21.9 [place] [address] [place] [id number] [address] [place] [phone] Jun, Paranoid schizophrenia F20.0 [place] [address] [place] [id number] [address] [place] [phone] Jun, Schizoaffective disorder, de pressive type F25.1 [place] [address] [place] [id number] [address] [place] [phone] Jun, [facility] [place] [address] [place] [id number] [address] [place] [phone] Jun, Schizoaffective disorder, de pressive type F25.1 [facility] [place] [address] [facility] [id number] [address] [place] [phone] Jun, Cigarette nicotine dependenc e without complication F17.210 [facility] [place] [address] [facility] [id number] [address] [place] [phone] 18 Jun, 2018 Type 2 diabetes mellitus wit hout complication, without long-term current use of insulin E11.9 [facility] [place] [address] [facility] [id number] [address] [place] [phone] 15 Jun, 2018 [facility] [place] [address] [facility] [id number] [address] [place] [phone] Jun, [facility] [place] [address] [facility] [id number] [address] [place] [phone] Jun, [facility] [place] [address] [facility] [id number] [address] [place] [phone] Jun, [facility] [place] [address] [facility] [id number] [address] [place] [phone] Jun, [facility] [place] [address] [facility] [id number] [address] [place] [phone] Jun, Paranoid schizophrenia F20.0 ; Type 2 diabetes mellitus without complication, without long-term current use of insulin E11.9 ; Hypothyroidism (acquired) E03.9 and Morbid obesity E66.01 [facility] [place] [address] [facility] [id number] [address] [place] [phone] May, Paranoid schizophrenia F20.0 [facility] [place] [address] [facility] [id number] [address] [place] [phone] May, Hypothyroidism (acquired) E0 3.9 and Dyslipidemia E78.5 [facility] [place] [address] [facility] [id number] [address] [place] [phone] May, Cigarette nicotine dependenc e without complication F17.210 [facility] [place] [address] [facility] [id number] [address] [place] [phone] May, [facility] [place] [address] [place] [id number] [address] [place] [phone] May, Type 2 diabetes mellitus wit hout complication, without long-term current use of insulin E11.9 ; Essential hypertension I10 ; Hypothyroidism (acquired) E03.9 and Dyslipidemia E78.5 [facility] [place] [address] [phone] May, [facility] [place] [address] [id number] May, Schizoaffective disorder, de pressive type F25.1 [place] [address] [phone] May, Paranoid schizophrenia F20.0 [place] [address] [id number] May, ElizabethHARRY PANTHER [address] [place] [address] 07 May, 19 [facility] [place] [address] [phone] May, [facility] [place] [address] [phone] May, Type 2 diabetes mellitus wit hout complication, without long-term current use of insulin E11.9 ; Essential hypertension I10 ; Hypothyroidism (acquired) E03.9 and Dyslipidemia E78.5 [facility] [place] [address] [place] [id number] [address] [place] [phone] May, [facility] [place] [address] [id number] May, Acute nasopharyngitis J00 [facility] [address] [place] [id number] [address] [place] [phone] 04 May, 2018 Allergic rhinitis, unspecifi ed seasonality, unspecified trigger J30.9 [facility] [place] [address] [place] [address] 04 May, 2018 [facility] [place] [address] [facility] [id number] [address] [place] [phone] Apr, Schizoaffective disorder, de pressive type F25.1 [facility] [place] [address] [facility] [id number] [address] [place] [phone] Apr, [facility] [place] [address] [place] [id number] [place] [phone] Apr, Cigarette nicotine dependenc e without complication F17.210 [facility] [place] [address] [facility] [id number] [address] [place] [phone] 17 Apr, 2018 [facility] [place] [address] [place] [id number] [place] [phone] Apr, Cigarette nicotine dependenc e without complication F17.210 [place] [address] [place] [id number] [address] [place] [phone] Apr, [facility] [place] [address] [place] [id number] [address] [place] [id number] Apr, Migraine without aura and wi thout status migrainosus, not intractable G43.009 [place] [address] [place] [id number] [place] [phone] Apr, Migraine without aura and wi thout status migrainosus, not intractable G43.009 [place] [address] [place] [id number] [address] [place] [phone] Mar, Schizoaffective disorder, de pressive type F25.1 ; BMI 45.0-49.9, adult Z68.42 and BMI 40.0-44.9, adult Z68.41 [place] [address] [place] [id number] [address] [place] [phone] Mar, Primary insomnia F51.01 [facility] [place] [address] [place] [id number] [address] [place] [phone] Mar, [place] [id number] [place] [phone] Feb, Primary insomnia F51.01 [place] [address] [place] [id number] [place] [phone] Feb, [place] [address] [place] [id number] [place] [phone] Jan, Schizoaffective disorder, de pressive type F25.1 and BMI 45.0-49.9, adult Z68.42 [place] [address] [place] [id number] [place] [phone] Jan, [place] [address] [place] [id number] [place] [phone] 16 Jan, 2018 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, without long-term current use of insulin E11.610 ; Menopausal syndrome (hot flashes) N95.1 ; BMI 40.0-44.9, adult Z68.41 and Morbid obesity E66.01 [place] [address] [place] [id number] [address] [place] [id number] Jan, Paranoid schizophrenia F20.0 [place] [address] [place] [id number] [address] [place] [phone] Jan, [place] [address] [place] [id number] [place] [phone] Jan, Schizoaffective disorder, de pressive type F25.1 [place] [address] [place] [id number] [place] [phone] Jan, [place] [address] [facility] [id number] [address] [place] [phone] 02 Jan, 2018 Chronic obstructive pulmonar y disease, unspecified COPD type J44.9 ; BMI 45.0-49.9, adult Z68.42 ; Type 2 diabetes mellitus without complication, without long-term current use of insulin E11.9 ; Hypothyroidism (acquired) E03.9 ; Encounter for immunization Z23 ; Gastroesophageal reflux disease without esophagitis K21.9 ; Primary insomnia F51.01 and Acute nasopharyngitis J00 [facility] [place] [address] [facility] [id number] [address] [place] [phone] 27 Dec, 2017 [facility] [place], [facility] [address] [facility] [id number] [address] [place] [phone] 21 Dec, 2017 Schizoaffective disorder, de pressive type F25.1 and BMI 45.0-49.9, adult Z68.42 [facility] [place] [address] [facility] [id number] [address] [place] [phone] 21 Dec, 2017 [facility] [place], [facility] [address] [facility] [id number] [address] [place] [phone] 18 Dec, 2017 [facility] [place], [facility] [address] [place] [id number] [place] [phone] 18 Dec, 2017 Acute non-recurrent frontal sinusitis J01.10 [facility] [place] [address] [place] [id number] [address] [place] [phone] 18 Dec, 2017 Acute non-recurrent frontal sinusitis J01.10 ; Weakness of left leg R29.898 ; At high risk for falls Z91.81 and BMI 45.0-49.9, adult Z68.42 [facility] [place], [facility] [id number] [address] [place] [phone] 17 Dec, 2017 [facility] [place] [id number] [address] [place] [id number] 17 Dec, 2017 [facility] [place] [id number] [address] [place] [phone] 10 Dec, 2017 Schizoaffective disorder, de pressive type F25.1 [facility] [address] [facility] [id number] [address] [place] [phone] 10 Dec, 2017 Acute nasopharyngitis J00 [facility] [place] [address] [facility] [id number] [address] [place] [phone] 05 Dec, 2017 Schizoaffective disorder, de pressive type F25.1 [facility] [place] [id number] [address] [place] [phone] Dec, [place] [id number] [place] [id number] Nov, Schizoaffective disorder, de pressive type F25.1 and BMI 45.0-49.9, adult Z68.42 [place] [address] [id number] [place] [phone] Nov, [facility] [place] [id number] [place] [phone] Nov, [place] [address] [id number] Nov, Schizoaffective disorder, de pressive type F25.1 [place] [address] [id number] [place] [phone] Nov, Well woman exam Z01.419 ; BM I 45.0-49.9, adult Z68.42 ; Screening breast examination Z12.31 and Dietary counseling and surveillance Z71.3 [place] [address] [place] [id number] [address] [place] [phone] Nov, Paranoid schizophrenia F20.0 [place] [address] [place] [id number] [place] [phone] Nov, Gastroesophageal reflux dise ase, esophagitis presence not specified K21.9 [place] [address] [place] [id number] [place] [phone] Oct, Paranoid schizophrenia F20.[address] [facility] [address] [address] [id number] [place] [address] Oct, Chronic pain syndrome G89.4 and Schizoaf fective disorder, depressive type F25.1 [place] [address] [id number] [place] [id number] Oct, Chronic pain syndrome G89.4 and Schizoaffective disorder, depressive type F25.1 [place] [address] [facility] [id number] [address] [place] [id number] 16 Oct, 2017 Type 2 diabetes mellitus wit hout complication, without long-term current use of insulin E11.9 [place] [address] [facility] [id number] [address] [place] [phone] 12 Oct, 2017 Essential hypertension I10 a nd DM neuro manif type II E11.49 [facility] [place] [address] [facility] [id number] [address] [place] [phone] 11 Oct, 2017 [place] [address] [facility] [id number] [address] [place] [phone] Oct, Schizoaffective disorder, de pressive type F25.1 and BMI 45.0-49.9, adult Z68.42 [place] [address] [id number] [place] [phone] Oct, [place] [address] [id number] [place] [phone] Oct, Paranoid schizophrenia F20.0 [place] [id number] [place] [phone] 10 Oct, 2017 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, without long-term current use of insulin E11.610 ; Essential hypertension I10 ; Hypothyroidism (acquired) E03.9 ; Chronic obstructive pulmonary disease, unspecified COPD type J44.9 and Diabetic polyneuropathy associated with type 2 diabetes mellitus E11.42 [place] [address] [facility] [id number] [address] [place] [phone] Sep, Paranoid schizophrenia F20.0 [place] [address] [facility] [id number] [address] [place] [phone] Sep, Paranoid schizophrenia F20.0 and BMI 45.0-49.9, adult Z68.42 [place] [address] [place] [id number] [place] [id number] 15 Sep, 2017 Schizoaffective disorder, de pressive type F25.1 [place] [address] [place] [id number] [place] [id number] 15 Sep, 2017 [facility] [place] [address] [facility] [id number] [address] [place] [phone] Sep, Paranoid schizophrenia F20.0 [facility] [place] [address] [facility] [id number] [address] [place] [phone] Sep, [facility] [place] [id number] [place] [phone] Sep, Hypothyroidism (acquired) E0 3.9 [facility] [place] [address] [facility] [id number] [address] [place] [phone] Sep, [facility] [place] [id number] [place] [phone] August, Schizoaffective disorder, de pressive type F25.1 [facility] [place] [id number] [place] [phone] August, [facility] [place] [id number] [place] [phone] August, [facility] [place] [id number] [place] [id number] August, [facility] [place] [id number] [place] [phone] August, Paranoid schizophrenia F20.0 [facility] [place] [id number] [place] [phone] August, History of lupus Z87.39 and Chronic pain syndrome G89.4 [facility] [place] [address] [facility] [id number] [address] [place] [phone] August, [facility] [address] [facility] [id number] [address] [place] [phone] August, Seasonal allergic rhinitis, unspecified trigger J30.2 and BMI 45.0-49.9, adult Z68.42 [facility] [place] [address] [address] Jul, Schizoaffective disorder, de pressive type F25.1 [facility] [place] [address] [id number] Jul, [facility] [place] [address] [id number] Jul, Hypothyroidism (acquired) E0 3.9 [place] [address] [address] Jul, Chronic obstructive pulmonar y disease, unspecified COPD type J44.9 and Type 2 diabetes mellitus without complication, without long-term current use of insulin E11.9 [place] [address] [id number] Jul, Paranoid schizophrenia F20.0 [place] [address] [id number] Jun, Hypothyroidism (acquired) E0 3.9 and Seasonal allergic rhinitis due to pollen J30.1 [facility] [address] [address] Jun, Shortness of breath at rest R06.02 ; COPD exacerbation J44.1 and BMI 45.0-49.9, adult Z68.42 [place] [address] [address] Jun, [facility] [place] [address] [address] Jun, Paranoid schizophrenia F20.0 ; Depression with anxiety F41.8 and BMI 45.0-49.9, adult Z68.42 [facility] [place] [address] [address] Jun, Schizoaffective disorder, de pressive type F25.1 [facility] [address] [id number] [address] [place] [id number] Jun, Dental caries K02.9 [facility] [place] [address] [facility] [id number] [address] [place] [phone] Jun, Paranoid schizophrenia F20.0 [facility] [place] [id number] [place] [phone] May, Migraine without aura and wi thout status migrainosus, not intractable G43.009 ; DM neuro manif type II E11.49 and Type 2 diabetes mellitus without complication, without long-term current use of insulin E11.9 [facility] [place] [address] [facility] [id number] [phone] May, Migraine without aura and wi thout status migrainosus, not intractable G43.009 [facility] [place] [id number] [place] [phone] May, Depression with anxiety F41. 8 [facility] [id number] [place] [id number] May, [facility] [place] [address] [id number] May, [facility] [place] [address] [address] May, [facility] [place] [address] [address] May, Hypothyroidism (acquired) E0 3.9 [facility] [place] [address] [id number] [address] [place] [phone] May, Paranoid schizophrenia F20.0 [facility] [place] [id number] [place] [phone] May, Type 2 diabetes mellitus wit hout [...] N32.81 and Controlled substance agreement signed Z79.899 [facility] [place] [id number] [place] [id number] May, Controlled substance agreeme nt signed Z79.899 [facility] [place] [address] [facility] [id number] [address] [place] [phone] Apr, [facility] [id number] [place] [id number] Apr, Dental examination Z01.20 [facility] [place] [id number] [place] [phone] Apr, Paranoid schizophrenia F20.0 [facility] [place] [id number] [place] [phone] Apr, Hypertension, unspecified ty pe I10 [facility] [place] [id number] [place] [phone] Apr, Paranoid schizophrenia F20.0 [facility] [place] [id number] [place] [id number] Apr, [facility] [place] [id number] [place] [phone] Apr, Tobacco abuse Z72.0 [facility] [place] [id number] [place] [phone] Apr, [facility] [place] [id number] [place] [phone] Mar, [facility] [place] [id number] [place] [phone] Mar, Paranoid schizophrenia F20.0 and BMI 45.0-49.9, adult Z68.42 [facility] [place] [address] [facility] [id number] [address] [place] [phone] 15 Mar, 2017 Schizoaffective disorder, de pressive type F25.1 [facility] [place] [address] [facility] [id number] [address] [place] [phone] 14 Mar, 2017 [facility] [place] [address] [facility] [id number] [address] [place] [phone] Mar, Schizoaffective disorder, de pressive type F25.1 [facility] [place] [address] [facility] [id number] [address] [place] [phone] Mar, Hypothyroidism, unspecified type E03.9 [facility] [address] [facility] [id number] [address] [place] [phone] Feb, Gastroenteritis K52.9 and BM I 45.0-49.9, adult Z68.42 [place] [address] [id number] 22 Feb, 2017 [facility] [place] [id number] [place] [phone] Feb, [place] [address] [id number] Feb, [facility] [place] [id number] [place] [phone] 16 Feb, 2017 [place] [address] [address] Feb, Paranoid schizophrenia F20.0 [facility] [place] [id number] [place] [phone] 06 Feb, 2017 Gastroesophageal reflux dise ase without esophagitis K21.9 ; Other seasonal allergic rhinitis J30.2 ; Other allergic rhinitis J30.89 ; Tobacco abuse Z72.0 and BMI 40.0-44.9, adult Z68.41 [place] [address] [place] [id number] [place] [phone] Feb, Onychomycosis B35.1 ; Callus of foot L84 and DM neuro manif type II E11.49 [place] [address] [address] [id number] [place] [phone] Jan, Chronic allergic rhinitis J3 0.9 [place] [address] [id number] [place] [phone] 16 Jan, 2017 [place] [address] [id number] Jan, Schizoaffective disorder, de pressive type F25.1 [place] [id number] [place] [phone] Jan, [facility] [id number] [place] [phone] Jan, Sore throat J02.9 and Season al allergic rhinitis due to other allergic trigger J30.89 [place] [address] [address] Jan, [place] [address] [address] Jan, [facility] [id number] [place] [phone] Jan, Chronic allergic rhinitis J3 0.9 [place] [address] [address] 27 Dec, 2016 Paranoid schizophrenia F20.0 ; Primary insomnia F51.01 and Schizoaffective disorder, depressive type F25.1 [place] [address] [place] [id number] [place] [phone] Dec, Chronic pain syndrome G89.4 ; Cervicalgia of ogodmhhq-ujdhzmi-knkcr region M54.2 ; Menopausal syndrome (hot flashes) N95.1 and Encounter for immunization Z23 [place] [address] [id number] [place] [phone] 14 Dec, 2016 [place] [address] [facility] [id number] [address] [place] [phone] Dec, [facility] [place] [id number] [place] [phone] Dec, Paranoid schizophrenia F20.0 [facility] [place] [address] [facility] [id number] [address] [place] [id number] Dec, Schizoaffective disorder, de pressive type F25.1 [facility] [place] [address] [id number] [place] [phone] Nov, Hypothyroidism, unspecified type E03.9 [facility] [address] [facility] [id number] [address] [place] [phone] Nov, Acute seasonal allergic rhin itis due to other allergen J30.89 [facility] [place] [address] [place] [id number] [place] [phone] Nov, [facility] [place] [address] [place] [id number] [address] [place] [phone] Nov, Hypothyroidism, unspecified type E03.9 and Other elevated white blood cell (WBC) count D72.828 [place] [address] [place] [id number] [place] [id number] Nov, Schizoaffective disorder, de pressive type F25.1 [facility] [place] [address] [id number] [place] [id number] Nov, Paranoid schizophrenia F20.0 [facility] [place] [address] [facility] [id number] [address] [place] [id number] Nov, Type 2 diabetes mellitus wit hout complication, without long-term current use of insulin E11.9 ; Morbid obesity due to excess calories E66.01 and Chronic pain syndrome G89.4 [facility] [place] [address] [facility] [id number] [address] [place] [id number] Oct, Paranoid schizophrenia F20.0 [facility] [place] [id number] [place] [address], [place] [address] Oct, [facility] [place] [address] [facility] [id number] [address] [place] [phone] Oct, Schizoaffective disorder, de pressive type F25.1 [facility] [place] [address] [facility] [id number] [address] [place] [phone] Oct, Hypothyroidism, unspecified type E03.9 and Other elevated white blood cell (WBC) count D72.828 [facility] [place] [address] [facility] [id number] [address] [place] [phone] Oct, Morbid obesity due to excess calories E66.01 ; Chronic obstructive pulmonary disease, unspecified COPD type J44.9 ; History of lupus Z87.39 ; Hypothyroidism, unspecified type E03.9 ; Gastroesophageal reflux disease without esophagitis K21.9 ; Primary insomnia F51.01 and Chronic pain syndrome G89.4 [facility] [place] [address] [place] [id number] [address] [place] [phone] Sep, [facility] [place] [address] [facility] [id number] [address] [place] [phone] Sep, [facility] [place] [address] [place] [id number] [place] [phone] Sep, [facility] [place] [address] [id number] [place] [phone] Sep, Paranoid schizophrenia F20.0 [facility] [place] [address] [place] [id number] [place] [phone] Sep, [facility] [place] [address] [facility] [id number] [address] [place] [phone] Sep, Paranoid schizophrenia F20.0 [facility] [place] [address] [facility] [id number] [address] [place] [phone] Sep, [facility] [place] [address] [place] [id number] [place] [phone] August, Paranoid schizophrenia F20.0 [facility] [place] [address] [place] [id number] [address] [place] [phone] 27 Jul, 2016 [place] [address] [address] 18 Jul, 2016 Type 2 diabetes mellitus wit hout complication, without long-term current use of insulin E11.9 ; Morbid obesity due to excess calories E66.01 ; Depression with anxiety F41.8 ; Hypothyroidism, unspecified type E03.9 ; Seasonal allergic rhinitis due to other allergic trigger J30.89 ; Pain, dental K08.89 and Gastroesophageal reflux disease without esophagitis K21.9 [facility] [id number] [place] [id number] 12 Jul, 2016 Dental examination Z01.20 [place] [address] [place] [id number] [address] [place] [phone] 07 Jul, 2016 Paranoid schizophrenia F20.0 [place] [address] [address] 13 Jun, 2016 Paranoid schizophrenia F20.0 and Depression with anxiety F41.8 [place] [address] [id number] 10 Jun, 2016 Paranoid schizophrenia F20.0 and Depression with anxiety F41.8 [place] [address] [address] Jun, [place] [address] [address] Jun, [facility] [address] [place] [id number] [place] [phone] Jun, Seasonal allergic rhinitis d ue to other allergic trigger J30.89 [facility] [address] [place] [id number] [place] [phone] May, Sore throat J02.9 ; Other vi ral agents as the cause of diseases classified elsewhere B97.89 and Acute upper respiratory infection, unspecified J06.9 [place] [address] [id number] 08 May, 2016 Paranoid schizophrenia F20.0 and Depression with anxiety F41.8 [place] [address] [address] 31 Apr, 2016 Other seasonal allergic rhin itis J30.2 [place] [address] [address] Apr, Paranoid schizophrenia F20.0 and Depression with anxiety F41.8 [facility] [address] [address] Apr, Bronchitis J40 and Sore thro at J02.9 [place] [address] [address] Apr, Type 2 diabetes mellitus wit hout complication, without long-term current use of insulin E11.9 [facility] [address] [address] Apr, Bronchitis J40 [place] [address] [address] Apr, [place] [address] [address] Apr, [place] [address] [address] Mar, Type 2 diabetes mellitus wit hout [...] Other seasonal allergic rhinitis J30.2 [place] [address] [address] Mar, Paranoid schizophrenia F20.0 and Depression with anxiety F41.8 [facility] [place] [address] [id number] [address] [place] [phone] Feb, [facility] [place] [address] [id number] [address] [place] [phone] Feb, [facility] [place] [address] [id number] [address] [place] [phone] Feb, [facility], [place] [address] [id number] [address] [place] [id number] Feb, [facility] [place] [address] [id number] [address] [place] [id number] Feb, Type 2 diabetes mellitus wit hout complication, without long-term current use of insulin E11.9 ; ARIAS on CPAP G47.33 and Preoperative evaluation to rule out surgical contraindication Z01.818 [facility] [place] [address] [id number] [address] [place] [id number] Feb, Paranoid schizophrenia F20.0 and Depression with anxiety F41.8 [facility] [place] [address] [id number] [address] [place] [phone] Jan, [facility] [place] [address] [id number] [address] [place] [id number] Jan, Paranoid schizophrenia F20.0 and Depression with anxiety F41.8 [facility] [place] [address] [id number] [address] [place] [id number] 17 Jan, 2016 [facility] [place] [address] [id number] [address] [place] [id number] Jan, Muscle strain T14.8 [facility] [place] [address] [id number] [address] [place] [id number] Jan, Paranoid schizophrenia F20.0 [facility] [place] [address] [id number] [address] [place] [phone] 07 Jan, 2016 [facility] [place] [address] [id number] [address] [place] [id number] 05 Jan, 2016 Paranoid schizophrenia F20.0 and Depression with anxiety F41.8 [facility] [place] [address] [id number] [address] [place] [id number] 05 Jan, 2016 [facility] [place] [address] [id number] [address] [place] [phone] Jan, [facility] [place] [address] [facility] [id number] [address] [place] [phone] Dec, [facility] [place] [address] [id number] [address] [place] [id number] 23 Dec, 2015 Paranoid schizophrenia F20.0 [facility] [place] [address] [facility] [id number] [address] [place] [phone] 16 Dec, 2015 Paranoid schizophrenia F20.0 and Depression with anxiety F41.8 [facility] [place] [address] [facility] [id number] [address] [place] [id number] Nov, [facility] [place] [address] [id number] [address] [place] [id number] Nov, Paranoid schizophrenia F20.0 [facility] [place] [address] [facility] [id number] [address] [place] [phone] Nov, Paranoid schizophrenia F20.0 and Depression with anxiety F41.8 [facility] [place] [address] [facility] [id number] [address] [place] [id number] Nov, Type 2 diabetes mellitus wit hout complication, without long-term current use of insulin E11.9 ; Paranoid schizophrenia F20.0 ; Chronic obstructive pulmonary disease, unspecified COPD type J44.9 ; Morbid obesity due to excess calories E66.01 and Parkinsonian tremor G20 [facility] [place] [address] [facility] [id number] [address] [place] [phone] Nov, [facility] [place] [address] [facility] [id number] [address] [place] [phone] Oct, Paranoid schizophrenia F20.0 [place] [address] [id number] Oct, Paranoid schizophrenia F20.0 [place] [address] [id number] Oct, Paranoid schizophrenia F20.0 and Depression with anxiety F41.8 [place] [address] [address] Oct, [place] [address] [address] Oct, Paranoid schizophrenia F20.0 and Depression with anxiety F41.[address] [address] Oct, Nasal sore J34.[address] [address] Oct, Type 2 diabetes mellitus wit hout complication, without long-term current use of insulin E11.9 ; Depression with anxiety F41.8 ; Hypothyroidism, unspecified type E03.9 and History of lupus Z87.39 [place] [address] [address] Oct, [place] [address] [address] Oct, Type 2 diabetes mellitus wit hout [...] and History of lupus Z87.39 [place] [address] [address] Feb, [facility] [address] [id number] [address] [place] [address], [place] [address] Jan, [facility] [address] [id number] [address] [place] [phone] Jan, [facility] [address] [id number] [address] [place] [address], [place] [address] Jan, [facility] [address] [id number] [address] [place] [phone] Dec, [facility] [address] [id number] [address] [place] [address], [place] [address] Nov, [facility] [address] [id number] [address] [place] [id number] Nov, [facility] [address] [id number] [address] [place] [id number] Oct, [facility] [address] [id number] [address] [place] [phone] Oct, [facility] [address] [id number] [address] [place] [id number] Oct, [facility] [address] [id number] [address] [place] [id number] Sep, Allergic rhinitis 477.9 [facility] [address] [id number] [address] [place] [id number] Sep, Rhinitis, allergic 477.9 [facility] [address] [id number] [address] [place] [phone] Sep, Rhinitis, allergic 477.9 [facility] [address] [id number] [address] [place] [id number] Sep, [facility] [address] [id number] [address] [place] [phone] August, [facility] [address] [id number] [address] [place] [id number] August, [facility] [address] [id number] [address] [place] [address], [place] [address] August, [facility] [address] [id number] [address] [place] [address], [place] [id number] 28 Jul, 2014 [facility] [address] [id number] [address] [place] [address], [place] [id number] 14 Jul, 2014 [facility] [address] [id number] [address] [place] [address], [place] [address] Jul, [facility] [address] [id number] [address] [place] [address], [place] [address] Jun, [facility] [address] [id number] [address] [place] [address], [place] [address] Jun, [facility] [address] [id number] [address] [place] [address], [place] [address] Jun, [facility] [address] [id number] [address] [place] [address], [place] [address] Jun, [facility] [address] [id number] [address] [place] [address], [place] [address] Jun, [facility] [address] [id number] [address] [place] [address], [place] [address] Jun, [facility] [address] [id number] [address] [place] [address], [place] [address] Jun, [facility] [address] [id number] [address] [place] [address], [place] [address] Jun, [facility] [address] [id number] [address] [place] [address], [place] [address] May, [facility] [address] [id number] [address] [place] [address], [place] [address] May, [facility] [address] [id number] [address] [place] [address], [place] [address] May, [facility] [address] [id number] [address] [place] [address], [place] [address] 11 May, 2014 [facility] [address] [id number] [address] [place] [address], [place] [address] Apr, [facility] [address] [id number] [address] [place] [address], [place] [address] Mar, [facility] [address] [id number] [address] [place] [address], [place] [address] Mar, [facility] [address] [id number] [address] [place] [address], [place] [address] Mar, [facility] [address] [id number] [address] [place] [address], [place] [address] Mar, [facility] [address] [id number] [address] [place] [address], [place] [address] Mar, [facility] [address] [id number] [address] [place] [address], [place] [address] Mar, [facility] [address] [id number] [address] [place] [address], [place] [address] Mar, [facility] [address] [id number] [address] [place] [address], [place] [address] Mar, [facility] [address] [id number] [address] [place] [address], [place] [address] Mar, [facility] [address] [id number] [address] [place] [address], [place] [address] Feb, [facility] [address] [id number] [address] [place] [address], [place] [address] Feb, [facility] [address] [id number] [address] [place] [address], [place] [address] Feb, [facility] [address] [id number] [address] [place] [address], [place] [address] Feb, [facility] [address] [id number] [address] [place] [address], [place] [address] Feb, [facility] [address] [id number] [address] [place] [address], [place] [address] 14 Feb, 2014 [facility] [address] [id number] [address] [place] [address], [place] [address] 12 Feb, 2014 [facility] [address] [id number] [address] [place] [address], [place] [address] 12 Feb, 2014 [facility] [address] [id number] [address] [place] [address], [place] [address] 23 Jan, 2014 [facility] [address] [id number] [address] [place] [address], [place] [address] 23 Jan, 2014 [facility] [address] [id number] [address] [place] [address], [place] [address] 16 Jan, 2014 [facility] [address] [id number] [address] [place] [address], [place] [address] 16 Jan, 2014 [facility] [address] [id number] [address] [place] [address], [place] [address] 15 Jan, 2014 [facility] [address] [id number] [address] [place] [address], [place] [address] 15 Jan, 2014 [facility] [address] [id number] [address] [place] [id number] 14 Jan, 2014 [facility] [address] [id number] [address] [place] [address], [place] [address] 14 Jan, 2014 [facility] [address] [id number] [address] [place] [id number] 14 Jan, 2014 [facility] [address] [id number] [address] [place] [address], [place] [address] 14 Jan, 2014 [facility] [address] [id number] [address] [place] [address], [place] [address] 18 Dec, 2013 [facility] [address] [id number] [address] [place] [id number] 18 Dec, 2013 [facility] [address] [id number] [address] [place] [id number] Dec, [facility] [address] [id number] [address] [place] [address], [place] [address] Dec, [facility] [address] [id number] [address] [place] [address], [place] [address] Nov, [facility] [address] [id number] [address] [place] [address], [place] [address] Nov, [facility] [address] [id number] [address] [place] [address], [place] [address] Nov, [facility] [address] [id number] [address] [place] [address], [place] [address] Nov, [facility] [address] [id number] [address] [place] [address], [place] [address] Nov, [facility] [address] [id number] [address] [place] [address], [place] [address] Oct, [facility] [address] [id number] [address] [place] [address], [place] [address] Oct, [facility] [address] [id number] [address] [place] [address], [place] [address] Oct, [facility] [address] [id number] [address] [place] [address], [place] [address] Oct, [facility] [address] [id number] [address] [place] [address], [place] [address] Sep, [facility] [address] [id number] [address] [place] [address], [place] [address] Sep, [facility] [address] [id number] [address] [place] [address], [place] [address] Sep, [facility] [address] [id number] [address] [place] [address], [place] [address] Sep, [facility] [address] [id number] [address] [place] [address], [place] [address] Sep, [facility] [address] [id number] [facility] [address] Sep, [facility] [address] [id number] [facility] [place] [address] Sep, [facility] [address] [id number] [facility] [place] [address] Sep, [facility] [address] [id number] [address] [place] [address], [place] [address] August, [facility] [address] [id number] [address] [place] [address], [place] [address] August, [facility] [address] [id number] [address] [place] [address], [place] [address] August, [facility] [address] [id number] [address] [place] [address], [place] [address] August, [facility] [address] [id number] [address] [place] [address], [place] [address] August, [facility] [address] [id number] [address] [place] [address], [place] [address] August, [facility] [address] [id number] [address] [place] [address], [place] [address] August, [facility] [address] [id number] [address] [place] [address], [place] [address] Jul, [facility] [address] [id number] [address] [place] [address], [place] [address] Jul, [facility] [address] [id number] [address] [place] [address], [place] [address] Jul, [facility] [address] [id number] [address] [place] [address], [place] [address] Jul, [facility] [address] [id number] [address] [place] [address], [place] [address] Jul, [facility] [address] [id number] [address] [place] [address], [place] [address] Jul, [facility] [address] [id number] [facility] [place] [address] Jul, [facility] [address] [id number] [address] [place] [address], [place] [address] Jul, [facility] [address] [id number] [address] [place] [address], [place] [address] Jul, [facility] [address] [id number] [address] [place] [address], [place] [address] Jul, [facility] [address] [id number] [address] [place] [address], [place] [address] Jul, [facility] [address] [id number] [address] [place] [address], [place] [address] Jul, [facility] [address] [id number] [address] [place] [address], [place] [address] Jun, [facility] [address] [id number] [address] [place] [address], [place] [address] Jun, [facility] [address] [id number] [address] [place] [address], [place] [address] Jun, [facility] [address] [id number] [address] [place] [address], [place] [address] Jun, [facility] [address] [id number] [address] [place] [address], [place] [address] Jun, [facility] [address] [id number] [address] [place] [address], [place] [address] May, [facility] [address] [id number] [address] [place] [address], [place] [address] May, [facility] [address] [id number] [address] [place] [address], [place] [address] May, [facility] [address] [id number] [address] [place] [address], [place] [address] May, [facility] [address] [id number] [address] [place] [address], [place] [address] May, 2013 [facility] [address] [id number] [address] [place] [address], [place] [address] May, 2013 [facility] [address] [id number] [address] [place] [address], [place] [address] May, 2013 [facility] [address] [id number] [address] [place] [address], [place] [address] May, 2013 [facility] [address] [id number] [address] [place] [address], [place] [address] Mar, [facility] [address] [id number] [address] [place] [address], [place] [address] Mar, [facility] [address] [id number] [address] [place] [address], [place] [address] Mar, [facility] [address] [id number] [address] [place] [address], [place] [address] Mar, [facility] [address] [id number] [address] [place] [address], [place] [address] Mar, [facility] [address] [id number] [address] [place] [address], [place] [address] Mar, [facility] [address] [id number] [address] [place] [address], [place] [address] Feb, [facility] [address] [id number] [address] [place] [address], [place] [address] Feb, [facility] [address] [id number] [address] [place] [address], [place] [address] Jan, [facility] [address] [id number] [address] [place] [address], [place] [address] Jan, [facility] [address] [id number] [address] [place] [address], [place] [address] Jan, [facility] [address] [id number] [address] [place] [address] [address] Jan, [facility] [address] [id number] [address] [place] [address], [place] [address] Jan, [facility] [address] [id number] [address] [place] [address], [place] [id number] Jan, [facility] [address] [id number] [address] [place] [address], [place] [address] Jan, [facility] [address] [id number] [address] [place] [address], [place] [address] Jan, [facility] [address] [id number] [address] [place] [address], [place] [id number] Jan, [facility] [address] [id number] [address] [place] [address], [place] [id number] Jan, [facility] [address] [id number] [address] [place] [address], [place] [id number] Dec, [facility] [address] [id number] [address] [place] [address], [place] [address] Nov, [facility] [address] [id number] [address] [place] [address], [place] [id number] Nov, [facility] [address] [id number] [address] [place] [address], [place] [id number] Nov, [facility] [address] [id number] [address] [place] [address], [place] [id number] Oct, [facility] [address] [id number] [address] [place] [id number] Oct, [facility] [address] [id number] [address] [place] [address], [place] [id number] August, [facility] [address] [id number] [address] [place] [address], [place] [id number] Apr, [facility] [address] [id number] [address] [place] [address], [place] [id number] Apr, [facility] [address] [id number] [address] [place] [phone] Feb, [facility] [place] [address] [id number] [address] [place] [phone] Feb, [facility] [place] [address] [facility] [id number] [address] [place] [phone] Dec, [facility] [place] [address] [facility] [id number] [address] [place] [phone] Dec, [facility] [place] [address] [facility] [id number] [address] [place] [phone] Oct, [facility] [place] [address] [facility] [id number] [address] [place] [phone] Oct, [facility] [place] [address] [facility] [id number] [address] [place] [id number] Oct, [facility] [place] [address] [facility] [id number] [address] [place] [id number] Jul, IMMUNIZATIONS No Known Immunizations SOCIAL HISTORY [...] psychosis/mental illness, last one in [facility] 4 years ago Hospitalization History broken ankle 08/2018
--- OUTSIDE RECORDS SUMMARY | 2019-07-07 04:14 | XMS REPORT ---
Author Author Alayna Hewitt Organization [facility] Address [address] [place] [address] Care Team Providers Care Life Skills Teacher Name Role Phone RODO Hewitt Unavailable PROBLEMS Type Condition ICD9-CM Code [id number] Code Onset Dates Condition S tatus SNOMED Code Problem Depression with anxiety F41.8 Active 711010370 Problem Morbid obesity due to excess calories E66.01 Active 219740386 Problem Chronic obstructive pulmonary disease, unspecified COPD ty pe J44.9 Active 65664638 Problem Paranoid schizophrenia F20.0 Active 29977585 Problem Chronic pain syndrome G89.4 Active 540541424 Problem History of lupus Z87.39 Active 312 725542 Problem Type 2 diabetes mellitus wit hout complication, without long-term current use of insulin E11.9 Active 088275077 Problem Dyslipidemia E78.5 Active 8145881 07 Problem Migraine without aura and without status migrain osus, not intractable G43.009 Active 787673462 Problem Primary insomnia F51.01 Active 397 2004 Problem Schizoaffective disorder, depressive type F25.1 Active 93225500 Problem Menopausal syndrome (hot flashes) N95.1 Active 024486806 Problem DM neuro manif type II E11.49 Active 16026278 Problem Other seasonal allergic rhinitis J30.2 Active 858786151 Problem Other allergic rhinitis J30.89 Active 424385729 Problem Gastroesophageal reflux disease, esophagitis pre sence not specified K21.9 Active 788770182 Problem Tobacco abuse Z72.0 Active 524758 000 Problem Essential hypertension I10 Active 35857444 Problem Hypothyroidism (acquired) E03.9 Acti ve 209719443 Problem COPD exacerbation J44.1 Active 19 0041775 Problem Allergic rhinitis, unspecified seasonality, unspecifie d trigger J30.9 Active 92581099 Problem Gastroesophageal reflux disease without esophagitis K21.9 Active 105010045 Problem Constipation by delayed colonic transit K59.01 Active 10723402 Problem OAB (overactive bladder) N32.81 Activ e 757176305 Problem Seasonal allergic rhinitis due to other allergic trigger J30.89 Active 992726946 Problem Seasonal allergic rhinitis due to pollen J30.1 Active 00919188 Problem 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, without long-term current use of insulin E11.610 Active 334955530 Problem Diabetic polyneuropathy associated with type 2 d iabetes mellitus E11.42 Active 525796944 Problem Cigarette nicotine dependence without complication F17.210 Active 08229628 ALLERGIES No Information ENCOUNTERS Encounter Location Date Diagnosis [facility] [address] [id number] [address] [place] [phone] Dec, [facility] [address] [id number] [address] [place] [phone] Dec, [facility] [address] [id number] [address] [place] [phone] Dec, [facility] [address] [id number] [address] [place] [phone] Dec, [facility] [address] [id number] [address] [place] [phone] Dec, [facility] [address] [id number] [address] [place] [phone] Dec, [facility] [address] [facility] [id number] [address] [place] [phone] Dec, [facility] [address] [id number] [address] [place] [phone] Nov, Paranoid schizophrenia F20.0 [facility] [address] [id number] [address] [place] [phone] Nov, [facility] [address] [id number] [address] [place] [address] Nov, [facility] [address] [facility] [id number] [address] [place] [phone] Nov, [facility] [address] [facility] [id number] [address] [place] [address] Nov, Encounter for comprehensive diabetic foot examination, type 2 diabetes mellitus E11.9 and Morbid obesity E66.01 [facility] [address] [facility] [id number] [address] [place] [phone] Nov, [facility] [address] [place] [id number] [address] [place] [phone] Nov, [facility] [address] [place] [id number] [place] [address] Nov, [facility] [address] [place] [id number] [place] [address] Nov, Schizoaffective disorder, de pressive type F25.1 [facility] [address] [place] [id number] [address] [place] [phone] Nov, Constipation by delayed colo james transit K59.01 [facility] [address] [place] [id number] [address] [place] [phone] Oct, [facility] [address] [place] [id number] [address] [place] [phone] Oct, [facility] [address] [place] [id number] [address] [place] [phone] Oct, [facility] [address] [place] [id number] [address] [place] [address] Oct, Chronic obstructive pulmonar y disease, unspecified COPD type J44.9 [facility] [address] [facility] [id number] [address] [place] [phone] Oct, [facility] [address] [place] [id number] [address] [place] [phone] Sep, Paranoid schizophrenia F20.0 [facility] [address] [facility] [id number] [address] [place] [phone] Sep, [facility] [address] [place] [id number] [address] [place] [phone] Sep, [facility] [address] [id number] [address] [place] [phone] Sep, Encounter for immunization Z 23 [facility] [address] [id number] [address] [place] [address] 24 Sep, 2018 Closed fracture of right ank le, sequela S82.891S ; Morbid obesity E66.01 and Heat rash L74.0 [facility] [address] [id number] [address] [place] [phone] Sep, [facility] [address] [facility] [id number] [address] [place] [phone] Sep, Schizoaffective disorder, de pressive type F25.1 [facility] [address] [id number] [address] [place] [phone] Sep, [facility] [address] [facility] [id number] [address] [place] [phone] Sep, [facility] [address] [id number] [address] [place] [address] Sep, [facility] [address] [facility] [id number] [address] [place] [address] Sep, [facility] [address] [facility] [id number] [address] [place] [phone] Sep, [facility] [address] [facility] [id number] [address] [place] [phone] Sep, [facility] [address] [id number] [address] [place] [phone] Sep, [facility] [address] [id number] [address] [place] [phone] 05 Sep, 2018 [facility] [address] [facility] [id number] [address] [place] [phone] Sep, [facility] [address] [facility] [id number] [address] [place] [phone] August, Paranoid schizophrenia F20.0 [facility] [address] [facility] [id number] [address] [place] [address] August, [facility] [address] [facility] [id number] [address] [place] [phone] August, [facility] [address] [facility] [id number] [address] [place] [address] August, [facility] [address] [place] [id number] [address] [place] [address] August, Type 2 diabetes mellitus wit hout complication, without long-term current use of insulin E11.9 ; Closed fracture of right ankle, initial encounter S82.891A ; Constipation by delayed colonic transit K59.01 ; Osteoporosis with pathological fracture, initial encounter M80.00XA ; Encounter for immunization Z23 and Morbid obesity E66.01 [facility] [address] [place] [id number] [address] [place] [address] August, [facility] [address] [place] [id number] [address] [place] [address] August, [facility] [address] [id number] [address] [place] [address] August, Acquired deformity of muscul oskeletal system, unspecified M95.9 [facility] [address] [facility] [id number] [address] [place] [address] August, Paranoid schizophrenia F20.0 [facility] [address] [id number] [place] [address] August, [facility] [address] [facility] [id number] [address] [place] [phone] Jul, [facility] [address] [facility] [id number] [address] [place] [address] Jul, Diabetic polyneuropathy asso ciated with type 2 diabetes mellitus E11.42 ; Paranoid schizophrenia F20.0 ; Preoperative clearance Z01.818 and Morbid obesity E66.01 [facility] [address] [place] [id number] [address] [place] [phone] Jul, Paranoid schizophrenia F20.0 [facility] [address] [facility] [id number] [address] [place] [phone] Jul, [facility] [address] [facility] [id number] [address] [place] [address] Jul, [place] [address] [place] [id number] [place] [address] Jul, Cigarette nicotine dependenc e without complication F17.210 [place] [address] [place] [id number] [address] [place] [address] Jul, Type 2 diabetes mellitus wit hout complication, without long-term current use of insulin E11.9 and Hypothyroidism (acquired) E03.9 [place] [address] [place] [id number] [place] [address] Jul, [facility] ; Morbid obesity due to excess calories E66.01 ; Diabetic polyneuropathy associated with type 2 diabetes mellitus E11.42 ; Chronic obstructive pulmonary disease, unspecified COPD type J44.9 ; Schizoaffective disorder, depressive type F25.1 ; Hypothyroidism (acquired) E03.9 and Morbid obesity E66.01 [place] [address] [facility] [id number] [address] [place] [phone] Jun, Gastroesophageal reflux dise ase without esophagitis K21.9 [place] [address] [facility] [id number] [address] [place] [address] Jun, Paranoid schizophrenia F20.0 [place] [address] [facility] [id number] [address] [place] [phone] Jun, Schizoaffective disorder, de pressive type F25.1 [place] [address] [facility] [id number] [address] [place] [phone] Jun, [place] [address] [facility] [id number] [address] [place] [phone] Jun, Schizoaffective disorder, de pressive type F25.1 [facility] [address] [facility] [id number] [address] [place] [address] Jun, Cigarette nicotine dependenc e without complication F17.210 [facility] [address] [facility] [id number] [address] [place] [phone] 18 Jun, 2018 Type 2 diabetes mellitus wit hout complication, without long-term current use of insulin E11.9 [facility] [address] [facility] [id number] [address] [place] [phone] 15 Jun, 2018 [facility] [address] [facility] [id number] [address] [place] [phone] Jun, [facility] [address] [facility] [id number] [address] [place] [phone] Jun, [place] [address] [facility] [id number] [address] [place] [phone] Jun, [facility] [address] [facility] [id number] [address] [place] [phone] Jun, [facility] [address] [facility] [id number] [address] [place] [phone] Jun, Paranoid schizophrenia F20.0 ; Type 2 diabetes mellitus without complication, without long-term current use of insulin E11.9 ; Hypothyroidism (acquired) E03.9 and Morbid obesity E66.01 [facility] [address] [facility] [id number] [address] [place] [phone] May, Paranoid schizophrenia F20.0 [place] [address] [facility] [id number] [address] [place] [id number] May, Hypothyroidism (acquired) E0 3.9 and Dyslipidemia E78.5 [place] [address] [facility] [id number] [address] [place] [address] May, Cigarette nicotine dependenc e without complication F17.210 [facility] [address] [facility] [id number] [address] [place] [phone] 18 May, 2018 [facility] [address] [place] [id number] [address] [place] [address] 14 May, 2018 Type 2 diabetes mellitus wit hout complication, without long-term current use of insulin E11.9 ; Essential hypertension I10 ; Hypothyroidism (acquired) E03.9 and Dyslipidemia E78.5 [facility] [address] [address] May, [facility] [address] [address] May, Schizoaffective disorder, de pressive type F25.1 [place] [address] [address] 08 May, 2018 Paranoid schizophrenia F20.0 [place] [address] [address] 07 May, 2018 [facility] [address] [place] [address] 07 May, 20 19 [facility] [address] [address] May, [facility] [address] [address] May, Type 2 diabetes mellitus wit hout complication, without long-term current use of insulin E11.9 ; Essential hypertension I10 ; Hypothyroidism (acquired) E03.9 and Dyslipidemia E78.5 [facility] [address] [place] [id number] [address] [place] [phone] May, [facility] [address] [address] May, Acute nasopharyngitis J00 [facility] [address] [place] [id number] [address] [place] [address] May, Allergic rhinitis, unspecifi ed seasonality, unspecified trigger J30.9 [facility] [address] [place] [id number] [address] [place] [address] May, [facility] [address] [place] [id number] [address] [place] [phone] Apr, Schizoaffective disorder, de pressive type F25.1 [facility] [address] [place] [id number] [address] [place] [address] Apr, [facility] [address] [place] [id number] [address] [place] [address] Apr, Cigarette nicotine dependenc e without complication F17.210 [place] [address] [facility] [id number] [address] [place] [address] Apr, [place] [address] [place] [id number] [place] [address] Apr, Cigarette nicotine dependenc e without complication F17.210 [place] [address] [place] [id number] [address] [place] [address] Apr, [facility] [address] [place] [id number] [address] [place] [address] Apr, Migraine without aura and wi thout status migrainosus, not intractable G43.009 [place] [address] [place] [id number] [address] [place] [address] Apr, Migraine without aura and wi thout status migrainosus, not intractable G43.009 [place] [address] [place] [id number] [address] [place] [address] Mar, Schizoaffective disorder, de pressive type F25.1 ; BMI 45.0-49.9, adult Z68.42 and BMI 40.0-44.9, adult Z68.41 [place] [address] [place] [id number] [address] [place] [address] Mar, Primary insomnia F51.01 [place] [address] [place] [id number] [place] [address] Mar, [place] [address] [facility] [id number] [address] [place] [address] Feb, Primary insomnia F51.01 [facility] [address] [facility] [id number] [address] [place] [phone] Feb, [place] [address] [place] [id number] [address] [place] [address] Jan, Schizoaffective disorder, de pressive type F25.1 and BMI 45.0-49.9, adult Z68.42 [place] [address] [place] [id number] [address] [place] [phone] Jan, [place] [address] [place] [id number] [place] [phone] 16 Jan, 2018 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, without long-term current use of insulin E11.610 ; Menopausal syndrome (hot flashes) N95.1 ; BMI 40.0-44.9, adult Z68.41 and Morbid obesity E66.01 [place] [address] [place] [id number] [address] [place] [address] Jan, Paranoid schizophrenia F20.0 [place] [address] [facility] [id number] [address] [place] [address] Jan, [place] [address] [place] [id number] [place] [address] Jan, Schizoaffective disorder, de pressive type F25.1 [place] [address] [facility] [id number] [address] [place] [phone] Jan, [place] [address] [facility] [id number] [address] [place] [id number] 02 Jan, 2018 Chronic obstructive pulmonar y disease, unspecified COPD type J44.9 ; BMI 45.0-49.9, adult Z68.42 ; Type 2 diabetes mellitus without complication, without long-term current use of insulin E11.9 ; Hypothyroidism (acquired) E03.9 ; Encounter for immunization Z23 ; Gastroesophageal reflux disease without esophagitis K21.9 ; Primary insomnia F51.01 and Acute nasopharyngitis J00 [facility] [address] [facility] [id number] [address] [place] [id number] 27 Dec, 2017 [facility] [address] [facility] [id number] [address] [place] [phone] 21 Dec, 2017 Schizoaffective disorder, de pressive type F25.1 and BMI 45.0-49.9, adult Z68.42 [facility] [address] [facility] [id number] [address] [place] [phone] Dec, [facility] [address] [facility] [id number] [address] [place] [phone] 18 Dec, 2017 [facility] [address] [facility] [id number] [address] [place] [address] 18 Dec, 2017 Acute non-recurrent frontal sinusitis J01.10 [facility] [address] [facility] [id number] [address] [place] [address] 18 Dec, 2017 Acute non-recurrent frontal sinusitis J01.10 ; Weakness of left leg R29.898 ; At high risk for falls Z91.81 and BMI 45.0-49.9, adult Z68.42 [facility] [address] [facility] [id number] [address] [place] [address] 17 Dec, 2017 [facility] [address] [facility] [id number] [address] [place] [phone] Dec, [facility] [address] [facility] [id number] [address] [place] [id number] 10 Dec, 2017 Schizoaffective disorder, de pressive type F25.1 [facility] [address] [facility] [id number] [address] [place] [phone] 10 Dec, 2017 Acute nasopharyngitis J00 [facility] [address] [facility] [id number] [address] [place] [phone] 05 Dec, 2017 Schizoaffective disorder, de pressive type F25.1 [facility] [address] [facility] [id number] [address] [place] [phone] Dec, [facility] [address] [facility] [id number] [address] [place] [address] Nov, Schizoaffective disorder, de pressive type F25.1 and BMI 45.0-49.9, adult Z68.42 [place] [address] [place] [id number] [address] [place] [phone] Nov, [facility] [address] [facility] [id number] [address] [place] [phone] Nov, [place] [address] [address] Nov, Schizoaffective disorder, de pressive type F25.1 [place] [address] [place] [id number] [address] [place] [address] Nov, Well woman exam Z01.419 ; BM I 45.0-49.9, adult Z68.42 ; Screening breast examination Z12.31 and Dietary counseling and surveillance Z71.3 [place] [address] [place] [id number] [address] [place] [address] Nov, Paranoid schizophrenia F20.0 [place] [address] [place] [id number] [address] [place] [phone] Nov, Gastroesophageal reflux dise ase, esophagitis presence not specified K21.9 [facility] [address] [place] [id number] [address] [place] [phone] Oct, Paranoid schizophrenia F20.0 [facility] [address] [id number] [place] [address] Oct, Chronic pain syndrome G89.4 and Schizoaf fective disorder, depressive type F25.1 [facility] [address] [facility] [id number] [address] [place] [phone] Oct, Chronic pain syndrome G89.4 and Schizoaffective disorder, depressive type F25.1 [place] [address] [facility] [id number] [address] [place] [phone] 16 Oct, 2017 Type 2 diabetes mellitus wit hout complication, without long-term current use of insulin E11.9 [place] [id number] [facility] [id number] [address] [place] [address] 12 Oct, 2017 Essential hypertension I10 a nd DM neuro manif type II E11.49 [place] [address] [place] [id number] [place] [phone] Oct, [place] [address] [place] [id number] [place] [phone] Oct, Schizoaffective disorder, de pressive type F25.1 and BMI 45.0-49.9, adult Z68.42 [place] [address] [place] [id number] [place] [phone] Oct, [place] [address] [place] [id number] [place] [phone] Oct, Paranoid schizophrenia F20.0 [place] [address] [place] [id number] [place] [phone] Oct, 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, without long-term current use of insulin E11.610 ; Essential hypertension I10 ; Hypothyroidism (acquired) E03.9 ; Chronic obstructive pulmonary disease, unspecified COPD type J44.9 and Diabetic polyneuropathy associated with type 2 diabetes mellitus E11.42 [place] [address] [place] [id number] [address] [place] [phone] Sep, Paranoid schizophrenia F20.0 [place] [address] [place] [id number] [address] [place] [phone] Sep, Paranoid schizophrenia F20.0 and BMI 45.0-49.9, adult Z68.42 [place] [address] [place] [id number] [address] [place] [phone] 15 Sep, 2017 Schizoaffective disorder, de pressive type F25.1 [place] [address] [facility] [place] [id number] [address] [place] [phone] 15 Sep, 2017 [facility] [address] [facility] [place] [id number] [address] [place] [phone] Sep, Paranoid schizophrenia F20.0 [facility] [address] [id number] [address] [place] [phone] 07 Sep, 2017 [facility] [id number] [place] [address] Sep, Hypothyroidism (acquired) E0 3.9 [facility] [address] [facility] [id number] [address] [place] [phone] Sep, [facility] [id number] [place] [address] August, Schizoaffective disorder, de pressive type F25.1 [facility] [id number] [place] [phone] August, [facility] [address] [id number] [address] [place] [phone] August, [facility] [id number] [place] [phone] August, [facility] [id number] [place] [address] August, Paranoid schizophrenia F20.0 [facility] [address] [id number] [address] [place] [phone] August, History of lupus Z87.39 and Chronic pain syndrome G89.4 [facility] [address] [facility] [id number] [address] [place] [phone] August, [facility] [address] [id number] [address] [place] [phone] August, Seasonal allergic rhinitis, unspecified trigger J30.2 and BMI 45.0-49.9, adult Z68.42 [facility] [address] [address] Jul, Schizoaffective disorder, de pressive type F25.1 [facility] [address] [address] Jul, [facility] [address] [address] Jul, Hypothyroidism (acquired) E0 3.9 [facility] [address] [address] Jul, Chronic obstructive pulmonar y disease, unspecified COPD type J44.9 and Type 2 diabetes mellitus without complication, without long-term current use of insulin E11.9 [place] [address] [address] Jul, Paranoid schizophrenia F20.0 [place] [address] [address] Jun, Hypothyroidism (acquired) E0 3.9 and Seasonal allergic rhinitis due to pollen J30.1 [facility] [address] [address] Jun, Shortness of breath at rest R06.02 ; COPD exacerbation J44.1 and BMI 45.0-49.9, adult Z68.42 [place] [address] [address] Jun, [facility] [address] [address] Jun, Paranoid schizophrenia F20.0 ; Depression with anxiety F41.8 and BMI 45.0-49.9, adult Z68.42 [facility] [address] [address] Jun, Schizoaffective disorder, de pressive type F25.1 [facility] [id number] [place] [phone] Jun, Dental caries K02.9 [facility] [address] [facility] [id number] [address] [place] [phone] Jun, Paranoid schizophrenia F20.0 [facility] [address] [id number] [address] [place] [phone] May, Migraine without aura and wi thout status migrainosus, not intractable G43.009 ; DM neuro manif type II E11.49 and Type 2 diabetes mellitus without complication, without long-term current use of insulin E11.9 [facility] [address] [facility] [id number] [address] [place] [address] May, Migraine without aura and wi thout status migrainosus, not intractable G43.009 [facility] [id number] [place] [address] May, Depression with anxiety F41. 8 [facility] [address] [place] [phone] May, [facility] [address] [id number] [address] [place] [phone] May, [facility] [address] [address] May, [facility] [address] [address] May, Hypothyroidism (acquired) E0 3.9 [facility] [address] [id number] [address] [place] [phone] May, Paranoid schizophrenia F20.0 [facility] [id number] [place] [address] May, Type 2 diabetes mellitus wit hout [...] N32.81 and Controlled substance agreement signed Z79.899 [facility] [address] [facility] [id number] [address] [place] [phone] May, Controlled substance agreeme nt signed Z79.899 [facility] [address] [facility] [id number] [address] [place] [phone] Apr, [facility] [address] [facility] [id number] [place] [id number] Apr, Dental examination Z01.20 [facility] [address] [id number] [address] [place] [phone] Apr, Paranoid schizophrenia F20.0 [facility] [address] [id number] [address] [place] [phone] Apr, Hypertension, unspecified ty pe I10 [facility] [address] [id number] [address] [place] [phone] Apr, Paranoid schizophrenia F20.0 [facility] [address] [id number] [address] [place] [phone] Apr, [facility] [address] [id number] [address] [place] [address] Apr, Tobacco abuse Z72.0 [facility] [address] [facility] [id number] [address] [place] [phone] Apr, [facility] [address] [id number] [address] [place] [phone] Mar, [facility] [address] [id number] [address] [place] [address] Mar, Paranoid schizophrenia F20.0 and BMI 45.0-49.9, adult Z68.42 [facility] [address] [id number] [address] [place] [phone] 15 Mar, 2017 Schizoaffective disorder, de pressive type F25.1 [facility] [address] [id number] [address] [place] [phone] 14 Mar, 2017 [facility] [id number] [place] [phone] Mar, Hypothyroidism, unspecified type E03.9 [facility] [address] [facility] [id number] [address] [place] [phone] 12 Mar, 2017 Schizoaffective disorder, de pressive type F25.1 [facility] [id number] [place] [phone] 25 Feb, 2017 Gastroenteritis K52.9 and BM I 45.0-49.9, adult Z68.42 [facility] [address] [address] 22 Feb, 2017 [facility] [address] [address] Feb, [place] [address] [address] Feb, [facility] [address] [address] 16 Feb, 2017 [facility] [address] [address] 10 Feb, 2017 Paranoid schizophrenia F20.0 [facility] [id number] [place] [phone] 06 Feb, 2017 Gastroesophageal reflux dise ase without esophagitis K21.9 ; Other seasonal allergic rhinitis J30.2 ; Other allergic rhinitis J30.89 ; Tobacco abuse Z72.0 and BMI 40.0-44.9, adult Z68.41 [facility] [address] [address] Feb, Onychomycosis B35.1 ; Callus of foot L84 and DM neuro manif type II E11.49 [facility] [address] [address] Jan, Chronic allergic rhinitis J3 0.9 [place] [id number] [place] [address] 16 Jan, 2017 [facility] [address] [address] Jan, Schizoaffective disorder, de pressive type F25.1 [place] [address] [address] Jan, [facility] [id number] [place] [address] 07 Jan, 2017 Sore throat J02.9 and Season al allergic rhinitis due to other allergic trigger J30.89 [place] [address] [address] Jan, [place] [address] [address] Jan, [facility] [address] [address] Jan, Chronic allergic rhinitis J3 0.9 [place] [address] [address] 27 Dec, 2016 Paranoid schizophrenia F20.0 ; Primary insomnia F51.01 and Schizoaffective disorder, depressive type F25.1 [place] [id number] [place] [phone] 21 Dec, 2016 Chronic pain syndrome G89.4 ; Cervicalgia of igaahkfs-gmqasch-fmzyy region M54.2 ; Menopausal syndrome (hot flashes) N95.1 and Encounter for immunization Z23 [place] [address] [address] 14 Dec, 2016 [facility] [address] [place] [address] 13 Dec, 2016 [facility] [address] [address] Dec, Paranoid schizophrenia F20.0 [facility] [address] [id number] [address] [place] [address] Dec, Schizoaffective disorder, de pressive type F25.1 [facility] [address] [id number] [address] [place] [address] Nov, Hypothyroidism, unspecified type E03.9 [facility] [address] [id number] [address] [place] [address] Nov, Acute seasonal allergic rhin itis due to other allergen J30.89 [place] [address] [id number] [address] [place] [phone] Nov, [facility] [address] [address] Nov, Hypothyroidism, unspecified type E03.9 and Other elevated white blood cell (WBC) count D72.828 [place] [address] [id number] [address] [place] [address] Nov, Schizoaffective disorder, de pressive type F25.1 [place] [address] [place] [address] Nov, Paranoid schizophrenia F20.0 [facility] [address] [id number] [address] [place] [phone] Nov, Type 2 diabetes mellitus wit hout complication, without long-term current use of insulin E11.9 ; Morbid obesity due to excess calories E66.01 and Chronic pain syndrome G89.4 [facility] [address] [id number] [address] [place] [phone] Oct, Paranoid schizophrenia F20.0 [facility] [address] [place] [address] Oct, [facility] [address] [facility] [id number] [address] [place] [phone] Oct, Schizoaffective disorder, de pressive type F25.1 [facility] [address] [facility] [id number] [address] [place] [phone] Oct, Hypothyroidism, unspecified type E03.9 and Other elevated white blood cell (WBC) count D72.828 [facility] [address] [facility] [id number] [address] [place] [address] Oct, Morbid obesity due to excess calories E66.01 ; Chronic obstructive pulmonary disease, unspecified COPD type J44.9 ; History of lupus Z87.39 ; Hypothyroidism, unspecified type E03.9 ; Gastroesophageal reflux disease without esophagitis K21.9 ; Primary insomnia F51.01 and Chronic pain syndrome G89.4 [place] [address] [facility] [id number] [address] [place] [phone] Sep, [facility] [address] [facility] [id number] [address] [place] [phone] Sep, [facility] [address] [facility] [id number] [address] [place] [phone] Sep, [facility] [address] [facility] [id number] [address] [place] [phone] Sep, Paranoid schizophrenia F20.0 [facility] [address] [facility] [id number] [address] [place] [phone] Sep, [facility] [address] [facility] [id number] [address] [place] [phone] Sep, Paranoid schizophrenia F20.0 [facility] [address] [facility] [id number] [address] [place] [phone] Sep, [facility] [address] [facility] [id number] [address] [place] [phone] August, Paranoid schizophrenia F20.0 [place] [address] [place] [id number] [address] [place] [address] Jul, [place] [address] [address] 18 Jul, 2016 Type 2 diabetes mellitus wit hout complication, without long-term current use of insulin E11.9 ; Morbid obesity due to excess calories E66.01 ; Depression with anxiety F41.8 ; Hypothyroidism, unspecified type E03.9 ; Seasonal allergic rhinitis due to other allergic trigger J30.89 ; Pain, dental K08.89 and Gastroesophageal reflux disease without esophagitis K21.9 [facility] [address] [id number] [address] [place] [id number] 12 Jul, 2016 Dental examination Z01.20 [place] [address] [address] 07 Jul, 2016 Paranoid schizophrenia F20.0 [place] [address] [address] 13 Jun, 2016 Paranoid schizophrenia F20.0 and Depression with anxiety F41.8 [place] [address] [address] Jun, Paranoid schizophrenia F20.0 and Depression with anxiety F41.8 [place] [address] [address] Jun, [place] [address] [address] Jun, [facility] [address] [id number] [address] [place] [phone] Jun, Seasonal allergic rhinitis d ue to other allergic trigger J30.89 [facility] [address] [id number] [address] [place] [address] May, Sore throat J02.9 ; Other vi ral agents as the cause of diseases classified elsewhere B97.89 and Acute upper respiratory infection, unspecified J06.9 [place] [address] [address] 08 May, 2016 Paranoid schizophrenia F20.0 and Depression with anxiety F41.8 [facility] [address] [address] 31 Apr, 2016 Other seasonal allergic rhin itis J30.2 [place] [address] [address] 11 Apr, 2016 Paranoid schizophrenia F20.0 and Depression with anxiety F41.8 [facility] [address] [address] 07 Apr, 2016 Bronchitis J40 and Sore thro at J02.9 [place] [address] [address] Apr, Type 2 diabetes mellitus wit hout complication, without long-term current use of insulin E11.9 [facility] [address] [address] 02 Apr, 2016 Bronchitis J40 [place] [address] [address] Apr, [facility] [address] [address] Apr, [place] [address] [address] Mar, Type 2 diabetes mellitus wit hout [...] R60.9 and Other seasonal allergic rhinitis J30.2 [facility] [address] [address] Mar, Paranoid schizophrenia F20.0 and Depression with anxiety F41.8 [facility] [address] [id number] [address] [place] [address] Feb, [facility] [address] [id number] [address] [place] [phone] Feb, [facility] [address] [id number] [address] [place] [phone] Feb, [facility] [address] [id number] [address] [place] [address] Feb, [facility] [address] [id number] [address] [place] [address] Feb, Type 2 diabetes mellitus wit hout complication, without long-term current use of insulin E11.9 ; ARIAS on CPAP G47.33 and Preoperative evaluation to rule out surgical contraindication Z01.818 [facility] [address] [id number] [address] [place] [address] Feb, Paranoid schizophrenia F20.0 and Depression with anxiety F41.8 [facility] [address] [id number] [address] [place] [phone] Jan, [facility] [address] [id number] [address] [place] [phone] Jan, Paranoid schizophrenia F20.0 and Depression with anxiety F41.8 [facility] [address] [id number] [address] [place] [address] Jan, [facility] [address] [id number] [address] [place] [address] Jan, Muscle strain T14.8 [facility] [address] [id number] [address] [place] [phone] Jan, Paranoid schizophrenia F20.0 [facility] [address] [id number] [address] [place] [id number] 07 Jan, 2016 [facility] [address] [id number] [address] [place] [phone] 05 Jan, 2016 Paranoid schizophrenia F20.0 and Depression with anxiety F41.8 [facility] [address] [id number] [address] [place] [address] 05 Jan, 2016 [facility] [address] [id number] [address] [place] [phone] Jan, [facility] [address] [id number] [address] [place] [phone] 28 Dec, 2015 [facility] [address] [id number] [address] [place] [phone] 23 Dec, 2015 Paranoid schizophrenia F20.0 [facility] [address] [facility] [id number] [address] [place] [phone] 16 Dec, 2015 Paranoid schizophrenia F20.0 and Depression with anxiety F41.8 [facility] [address] [facility] [id number] [address] [place] [address] Nov, [facility] [address] [id number] [address] [place] [address] Nov, Paranoid schizophrenia F20.0 [facility] [address] [facility] [id number] [address] [place] [phone] Nov, Paranoid schizophrenia F20.0 and Depression with anxiety F41.8 [facility] [address] [facility] [id number] [address] [place] [address] Nov, Type 2 diabetes mellitus wit hout complication, without long-term current use of insulin E11.9 ; Paranoid schizophrenia F20.0 ; Chronic obstructive pulmonary disease, unspecified COPD type J44.9 ; Morbid obesity due to excess calories E66.01 and Parkinsonian tremor G20 [facility] [address] [id number] [address] [place] [id number] Nov, [facility] [address] [facility] [id number] [address] [place] [phone] Oct, Paranoid schizophrenia F20.0 [place] [address] [address] Oct, Paranoid schizophrenia F20.0 [place] [address] [address] Oct, Paranoid schizophrenia F20.0 and Depression with anxiety F41.8 [place] [address] [address] Oct, [place] [address] [address] Oct, Paranoid schizophrenia F20.0 and Depression with anxiety F41.[address] [address] Oct, Nasal sore J34.[address] [address] Oct, Type 2 diabetes mellitus wit hout complication, without long-term current use of insulin E11.9 ; Depression with anxiety F41.8 ; Hypothyroidism, unspecified type E03.9 and History of lupus Z87.39 [place] [address] [address] Oct, [place] [address] [address] Oct, Type 2 diabetes mellitus wit hout [...] edema R60.9 and History of lupus Z87.39 [place] [address] [address] Feb, [facility] [address] [id number] [address] [place] [phone] Jan, [facility] [address] [id number] [address] [place] [phone] Jan, [facility] [address] [id number] [address] [place] [phone] Jan, [facility] [address] [id number] [address] [place] [phone] Dec, [facility] [address] [id number] [address] [place] [phone] Nov, [facility] [address] [id number] [address] [place] [phone] Nov, [facility] [address] [id number] [address] [place] [phone] Oct, [facility] [address] [id number] [address] [place] [phone] Oct, [facility] [address] [id number] [address] [place] [id number] Oct, [facility] [address] [id number] [address] [place] [address] Sep, Allergic rhinitis 477.9 [facility] [address] [id number] [address] [place] [address] Sep, Rhinitis, allergic 477.9 [facility] [address] [id number] [address] [place] [phone] Sep, Rhinitis, allergic 477.9 [facility] [address] [id number] [address] [place] [address] Sep, [facility] [address] [id number] [address] [place] [id number] August, [facility] [address] [id number] [address] [place] [id number] August, [facility] [address] [id number] [address] [place] [address], [place] [address] August, [facility] [address] [id number] [address] [place] [address], [place] [address] 28 Jul, 2014 [facility] [address] [id number] [address] [place] [address], [place] [address] 14 Jul, 2014 [facility] [address] [id number] [address] [place] [address], [place] [address] Jul, [facility] [address] [id number] [address] [place] [address], [place] [address] Jun, [facility] [address] [id number] [address] [place] [address], [place] [address] Jun, [facility] [address] [id number] [address] [place] [address], [place] [address] Jun, [facility] [address] [id number] [address] [place] [address], [place] [address] Jun, [facility] [address] [id number] [address] [place] [address], [place] [address] Jun, [facility] [address] [id number] [address] [place] [address], [place] [address] Jun, [facility] [address] [id number] [address] [place] [address], [place] [address] Jun, [facility] [address] [id number] [address] [place] [address], [place] [address] Jun, [facility] [address] [id number] [address] [place] [address], [place] [address] May, [facility] [address] [id number] [address] [place] [address], [place] [address] May, [facility] [address] [id number] [address] [place] [address], [place] [address] May, [facility] [address] [id number] [address] [place] [address], [place] [address] 11 May, 2014 [facility] [address] [id number] [address] [place] [address], [place] [address] Apr, [facility] [address] [id number] [address] [place] [address], [place] [address] Mar, [facility] [address] [id number] [address] [place] [address], [place] [address] Mar, [facility] [address] [id number] [address] [place] [address], [place] [address] Mar, [facility] [address] [id number] [address] [place] [address], [place] [address] Mar, [facility] [address] [id number] [address] [place] [address], [place] [address] Mar, [facility] [address] [id number] [address] [place] [address], [place] [address] Mar, [facility] [address] [id number] [address] [place] [address], [place] [address] Mar, [facility] [address] [id number] [address] [place] [address], [place] [address] Mar, [facility] [address] [id number] [address] [place] [address], [place] [address] Mar, [facility] [address] [id number] [address] [place] [address], [place] [address] Feb, [facility] [address] [id number] [address] [place] [address], [place] [address] Feb, [facility] [address] [id number] [address] [place] [address], [place] [address] Feb, [facility] [address] [id number] [address] [place] [address], [place] [address] 17 Feb, 2014 [facility] [address] [id number] [address] [place] [address], [place] [address] 14 Feb, 2014 [facility] [address] [id number] [address] [place] [address], [place] [address] 14 Feb, 2014 [facility] [address] [id number] [address] [place] [address], [place] [address] 12 Feb, 2014 [facility] [address] [id number] [address] [place] [address], [place] [address] 12 Feb, 2014 [facility] [address] [id number] [address] [place] [address], [place] [address] 23 Jan, 2014 [facility] [address] [id number] [address] [place] [address], [place] [address] 23 Jan, 2014 [facility] [address] [id number] [address] [place] [address], [place] [address] 16 Jan, 2014 [facility] [address] [id number] [address] [place] [address], [place] [address] 16 Jan, 2014 [facility] [address] [id number] [address] [place] [address], [place] [address] 15 Jan, 2014 [facility] [address] [id number] [address] [place] [address], [place] [address] 15 Jan, 2014 [facility] [address] [id number] [address] [place] [address], [place] [address] 14 Jan, 2014 [facility] [address] [id number] [address] [place] [address], [place] [address] 14 Jan, 2014 [facility] [address] [id number] [address] [place] [address], [place] [address] 14 Jan, 2014 [facility] [address] [id number] [address] [place] [address], [place] [address] 14 Jan, 2014 [facility] [address] [id number] [address] [place] [address], [place] [address] 18 Dec, 2013 [facility] [address] [id number] [address] [place] [address], [place] [address] 18 Dec, 2013 [facility] [address] [id number] [facility] [place] [address] Dec, [facility] [address] [id number] [address] [place] [address], [place] [address] Dec, [facility] [address] [id number] [address] [place] [address], [place] [address] Nov, [facility] [address] [id number] [address] [place] [address], [place] [address] Nov, [facility] [address] [id number] [address] [place] [address], [place] [address] Nov, [facility] [address] [id number] [address] [place] [address], [place] [address] Nov, [facility] [address] [id number] [address] [place] [address], [place] [address] Nov, [facility] [address] [id number] [address] [place] [address], [place] [address] Oct, [facility] [address] [id number] [address] [place] [address], [place] [address] Oct, [facility] [address] [id number] [address] [place] [address], [place] [address] Oct, [facility] [address] [id number] [address] [place] [address], [place] [address] Oct, [facility] [address] [id number] [address] [place] [address], [place] [address] Sep, [facility] [address] [id number] [address] [place] [address], [place] [address] Sep, [facility] [address] [id number] [address] [place] [address], [place] [address] Sep, [facility] [address] [id number] [address] [place] [address], [place] [address] Sep, [facility] [address] [id number] [address] [place] [address], [place] [address] Sep, [facility] [address] [id number] [address] [place] [address], [place] [address] Sep, [facility] [address] [id number] [address] [place] [address], [place] [address] Sep, [facility] [address] [id number] [address] [place] [address], [place] [address] Sep, [facility] [address] [id number] [address] [place] [address], [place] [address] August, [facility] [address] [id number] [address] [place] [address], [place] [address] August, [facility] [address] [id number] [address] [place] [address], [place] [address] August, [facility] [address] [id number] [address] [place] [address], [place] [address] August, [facility] [address] [id number] [address] [place] [address], [place] [address] August, [facility] [address] [id number] [address] [place] [address], [place] [address] August, [facility] [address] [id number] [address] [place] [address], [place] [address] August, [facility] [address] [id number] [address] [place] [address], [place] [address] Jul, [facility] [address] [id number] [address] [place] [address], [place] [address] Jul, [facility] [address] [id number] [address] [place] [address], [place] [address] Jul, [facility] [address] [id number] [address] [place] [address], [place] [address] Jul, [facility] [address] [id number] [address] [place] [address], [place] [address] Jul, [facility] [address] [id number] [address] [place] [address], [place] [address] Jul, [facility] [address] [id number] [facility] [place] [address] Jul, [facility] [address] [id number] [address] [place] [address], [place] [address] Jul, [facility] [address] [id number] [address] [place] [address], [place] [address] Jul, [facility] [address] [id number] [address] [place] [address], [place] [address] Jul, [facility] [address] [id number] [address] [place] [address], [place] [address] Jul, [facility] [address] [id number] [address] [place] [address], [place] [address] Jul, [facility] [address] [id number] [address] [place] [address], [place] [address] Jun, [facility] [address] [id number] [address] [place] [address], [place] [address] Jun, [facility] [address] [id number] [address] [place] [address], [place] [address] Jun, [facility] [address] [id number] [address] [place] [address], [place] [address] Jun, [facility] [address] [id number] [address] [place] [address], [place] [address] Jun, [facility] [address] [id number] [address] [place] [address], [place] [address] May, [facility] [address] [id number] [address] [place] [address], [place] [address] May, [facility] [address] [id number] [address] [place] [address], [place] [address] May, [facility] [address] [id number] [address] [place] [address], [place] [address] May, [facility] [address] [id number] [address] [place] [address], [place] [address] May, 2013 [facility] [address] [id number] [address] [place] [address], [place] [address] May, 2013 [facility] [address] [id number] [address] [place] [address], [place] [address] May, 2013 [facility] [address] [id number] [address] [place] [address], [place] [address] May, 2013 [facility] [address] [id number] [address] [place] [address], [place] [address] Mar, [facility] [address] [id number] [address] [place] [address], [place] [address] Mar, [facility] [address] [id number] [address] [place] [address], [place] [address] Mar, [facility] [address] [id number] [address] [place] [address], [place] [address] Mar, [facility] [address] [id number] [address] [place] [address], [place] [address] Mar, [facility] [address] [id number] [address] [place] [address], [place] [address] Mar, [facility] [address] [id number] [address] [place] [address], [place] [address] Feb, [facility] [address] [id number] [address] [place] [address], [place] [address] Feb, [facility] [address] [id number] [address] [place] [address], [place] [address] Jan, [facility] [address] [id number] [address] [place] [address], [place] [address] Jan, [facility] [address] [id number] [address] [place] [address], [place] [address] Jan, [facility] [address] [id number] [address] [place] [address], [place] [address] Jan, [facility] [address] [id number] [address] [place] [address], [place] [address] Jan, [facility] [address] [id number] [address] [place] [address], [place] [address] Jan, [facility] [address] [id number] [address] [place] [address], [place] [address] Jan, [facility] [address] [id number] [address] [place] [address], [place] [address] Jan, [facility] [address] [id number] [address] [place] [address], [place] [address] Jan, [facility] [address] [id number] [address] [place] [address], [place] [address] Jan, [facility] [address] [id number] [address] [place] [address], [place] [address] Dec, [facility] [address] [id number] [address] [place] [address], [place] [address] Nov, [facility] [address] [id number] [address] [place] [address], [place] [address] Nov, [facility] [address] [id number] [address] [place] [address], [place] [address] Nov, [facility] [address] [id number] [address] [place] [address], [place] [address] Oct, [facility] [address] [id number] [address] [place] [address], [place] [address] Oct, [facility] [address] [id number] [address] [place] [address], [place] [address] August, [facility] [address] [id number] [address] [place] [address], [place] [address] Apr, [facility] [address] [id number] [address] [place] [address], [place] [address] Apr, [facility] [address] [id number] [address] [place] [address] Feb, [facility] [address] [id number] [address] [place] [address] Feb, [facility] [address] [id number] [address] [place] [address] Dec, [facility] [address] [facility] [id number] [address] [place] [address] Dec, [facility] [address] [facility] [id number] [address] [place] [address] Oct, [facility] [address] [facility] [id number] [address] [place] [address] Oct, [facility] [address] [facility] [id number] [address] [place] [address] Oct, [facility] [address] [facility] [id number] [address] [place] [address] Jul, IMMUNIZATIONS No Known Immunizations SOCIAL HISTORY Never Assessed REASON FOR VISIT PLAN OF CARE VITAL SIGNS Height 60 in 2014-02-07 Weight 237.99 lbs 2014-02-07 Temperature 98 degrees Fahrenheit 2014-02-07 Heart Rate 80 bpm 2014-02-07 Respiratory Rate 22 2014-02-07 Blood pressure systolic 130 mmHg 2014-02-07 Blood pressure diastolic 82 mmHg 2014-02-07 MEDICATIONS Unknown Medications RESULTS No Results PROCEDURES Procedure Date Ordered Result Body Site MAMMOGRAM, SCREENING Feb 07, 2014 INSTRUCTIONS MEDICATIONS ADMINISTERED No Known Medications MEDICAL [...] hospitalizations for psychosis/mental illness, last one in [place] at [facility] 4 years ago Hospitalization History broken ankle 08/2018
--- OUTSIDE RECORDS SUMMARY | 2019-07-07 04:15 | XMS REPORT ---
Author Author Alayna ROJAS Organization [facility] Address [address] [place] [address] Care Team Providers Care [employer] Name Role Phone RADHA ROJAS Unavailable PROBLEMS Type Condition ICD9-CM Code BYN51-ND Code Onset Dates Condition S tatus SNOMED Code Problem Depression with anxiety F41.8 Active 202593601 Problem Morbid obesity due to excess calories E66.01 Active 387012001 Problem Chronic obstructive pulmonary disease, unspecified COPD ty pe J44.9 Active 91147117 Problem Paranoid schizophrenia F20.0 Active 29123046 Problem Chronic pain syndrome G89.4 Active 435016534 Problem History of lupus Z87.39 Active 312 423268 Problem Type 2 diabetes mellitus wit hout complication, without long-term current use of insulin E11.9 Active 335664919 Problem Dyslipidemia E78.5 Active 0427464 07 Problem Migraine without aura and without status migrain osus, not intractable G43.009 Active 678588841 Problem Primary insomnia F51.01 Active 397 2004 Problem Schizoaffective disorder, depressive type F25.1 Active 45225794 Problem Menopausal syndrome (hot flashes) N95.1 Active 896929245 Problem DM neuro manif type II E11.49 Active 11687672 Problem Other seasonal allergic rhinitis J30.2 Active 814397185 Problem Other allergic rhinitis J30.89 Active 454063422 Problem Gastroesophageal reflux disease, esophagitis pre sence not specified K21.9 Active 918807010 Problem Tobacco abuse Z72.0 Active 943267 000 Problem Essential hypertension I10 Active 49380535 Problem Hypothyroidism (acquired) E03.9 Acti ve 508390878 Problem COPD exacerbation J44.1 Active 19 1971750 Problem Allergic rhinitis, unspecified seasonality, unspecifie d trigger J30.9 Active 65286624 Problem Gastroesophageal reflux disease without esophagitis K21.9 Active 166851605 Problem Constipation by delayed colonic transit K59.01 Active 42985305 Problem OAB (overactive bladder) N32.81 Activ e 838866016 Problem Seasonal allergic rhinitis due to other allergic trigger J30.89 Active 418865785 Problem Seasonal allergic rhinitis due to pollen J30.1 Active 17467581 Problem 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, without long-term current use of insulin E11.610 Active 558222066 Problem Diabetic polyneuropathy associated with type 2 d iabetes mellitus E11.42 Active 403424898 Problem Cigarette nicotine dependence without complication F17.210 Active 13979023 ALLERGIES No Information ENCOUNTERS Encounter Location Date Diagnosis [facility] [address] [id number] [address] [place] [phone] Dec, [facility] [address] [facility] [id number] [address] [place] [phone] Dec, [facility] [address] [facility] [id number] [address] [place] [phone] Dec, [facility] [address] [facility] [id number] [address] [place] [phone] Dec, [facility] [address] [facility] [id number] [address] [place] [phone] Nov, Paranoid schizophrenia F20.0 [facility] [address] [facility] [id number] [address] [place] [phone] Nov, [facility] [address] [facility] [id number] [address] [place] [phone] Nov, [facility] [address] [facility] [id number] [address] [place] [phone] Nov, [facility] [address] [facility] [id number] [address] [place] [phone] Nov, Encounter for comprehensive diabetic foot examination, type 2 diabetes mellitus E11.9 and Morbid obesity E66.01 [facility] [address] [facility] [id number] [address] [place] [phone] Nov, [facility] [address] [facility] [id number] [address] [place] [phone] Nov, [facility] [address] [id number] [address] [place] [phone] Nov, [facility] [address] [facility] [id number] [address] [place] [phone] Nov, Schizoaffective disorder, de pressive type F25.1 [facility] [address] [id number] [address] [place] [address] Nov, Constipation by delayed colo james transit K59.01 [facility] [address] [id number] [address] [place] [phone] Oct, [facility] [address] [facility] [id number] [address] [place] [phone] Oct, [facility] [address] [facility] [id number] [address] [place] [phone] Oct, [facility] [address] [facility] [id number] [address] [place] [phone] Oct, Chronic obstructive pulmonar y disease, unspecified COPD type J44.9 [facility] [address] [facility] [id number] [address] [place] [phone] Oct, [facility] [address] [facility] [id number] [address] [place] [phone] Sep, Paranoid schizophrenia F20.0 [facility] [address] [facility] [id number] [address] [place] [phone] Sep, [facility] [address] [facility] [id number] [address] [place] [phone] Sep, [facility] [address] [facility] [id number] [address] [place] [phone] Sep, Encounter for immunization Z 23 [facility] [address] [facility] [id number] [address] [place] [phone] Sep, [facility] [address] [facility] [id number] [address] [place] [phone] Sep, Closed fracture of right ank le, sequela S82.891S ; Morbid obesity E66.01 and Heat rash L74.0 [facility] [address] [id number] [address] [place] [phone] Sep, Schizoaffective disorder, de pressive type F25.1 [facility] [address] [id number] [address] [place] [phone] Sep, [facility] [address] [id number] [address] [place] [phone] Sep, [facility] [address] [id number] [address] [place] [phone] Sep, [facility] [address] [id number] [address] [place] [phone] Sep, [facility] [address] [id number] [address] [place] [phone] Sep, [facility] [address] [id number] [address] [place] [phone] Sep, [facility] [address] [id number] [address] [place] [phone] Sep, [facility] [address] [id number] [address] [place] [phone] Sep, [facility] [address] [id number] [address] [place] [phone] Sep, [facility] [address] [id number] [address] [place] [phone] August, Paranoid schizophrenia F20.0 [facility] [address] [id number] [address] [place] [phone] August, [facility] [address] [id number] [address] [place] [phone] August, [facility] [address] [id number] [address] [place] [phone] August, [facility] [address] [facility] [id number] [address] [place] [phone] August, Type 2 diabetes mellitus wit hout complication, without long-term current use of insulin E11.9 ; Closed fracture of right ankle, initial encounter S82.891A ; Constipation by delayed colonic transit K59.01 ; Osteoporosis with pathological fracture, initial encounter M80.00XA ; Encounter for immunization Z23 and Morbid obesity E66.01 [facility] [address] [facility] [id number] [address] [place] [phone] August, [facility] [address] [facility] [id number] [address] [place] [phone] August, [facility] [address] [place] [id number] [address] [place] [phone] August, Acquired deformity of muscul oskeletal system, unspecified M95.9 [facility] [address] [facility] [id number] [address] [place] [phone] August, Paranoid schizophrenia F20.0 [facility] [address] [facility] [id number] [address] [address] August, [facility] [address] [facility] [id number] [address] [place] [phone] Jul, [facility] [address] [facility] [id number] [address] [place] [phone] Jul, Diabetic polyneuropathy asso ciated with type 2 diabetes mellitus E11.42 ; Paranoid schizophrenia F20.0 ; Preoperative clearance Z01.818 and Morbid obesity E66.01 [facility] [address] [facility] [id number] [address] [place] [phone] Jul, Paranoid schizophrenia F20.0 [facility] [address] [facility] [id number] [address] [place] [phone] Jul, [facility] [address] [facility] [id number] [address] [place] [phone] Jul, [facility] [address] [place] [phone] 11 Jul, 2018 Cigarette nicotine dependenc e without complication F17.210 [place] [address] [place] [id number] [address] [place] [phone] Jul, Type 2 diabetes mellitus wit hout complication, without long-term current use of insulin E11.9 and Hypothyroidism (acquired) E03.9 [place] [address] [phone] Jul, Encounter for Medicare [facility] wellness exam Z00.00 ; Morbid obesity due to excess calories E66.01 ; Diabetic polyneuropathy associated with type 2 diabetes mellitus E11.42 ; Chronic obstructive pulmonary disease, unspecified COPD type J44.9 ; Schizoaffective disorder, depressive type F25.1 ; Hypothyroidism (acquired) E03.9 and Morbid obesity E66.01 [place] [address] [id number] Jun, Gastroesophageal reflux dise ase without esophagitis K21.9 [place] [address] [place] [id number] [address] [place] [phone] Jun, Paranoid schizophrenia F20.0 [place] [address] [place] [id number] [place] [phone] Jun, Schizoaffective disorder, de pressive type F25.1 [place] [address] [place] [phone] Jun, [place] [address] [place] [id number] [address] [place] [phone] Jun, Schizoaffective disorder, de pressive type F25.1 [place] [address] [place] [id number] [address] [place] [phone] Jun, Cigarette nicotine dependenc e without complication F17.210 [place] [address] [place] [id number] [address] [place] [phone] 18 Jun, 2018 Type 2 diabetes mellitus wit hout complication, without long-term current use of insulin E11.9 [facility] [address] [facility] [id number] [address] [place] [phone] 15 Jun, 2018 [facility] [address] [facility] [id number] [address] [place] [phone] Jun, [facility] [address] [facility] [id number] [address] [place] [phone] Jun, [facility] [address] [facility] [id number] [address] [place] [phone] Jun, [facility] [address] [facility] [id number] [address] [place] [phone] Jun, [facility] [address] [place] [id number] [address] [place] [phone] Jun, Paranoid schizophrenia F20.0 ; Type 2 diabetes mellitus without complication, without long-term current use of insulin E11.9 ; Hypothyroidism (acquired) E03.9 and Morbid obesity E66.01 [facility] [address] [facility] [id number] [address] [place] [phone] 28 May, 2018 Paranoid schizophrenia F20.0 [facility] [address] [facility] [id number] [address] [place] [phone] 20 May, 2018 Hypothyroidism (acquired) E0 3.9 and Dyslipidemia E78.5 [place] [address] [facility] [id number] [address] [place] [phone] May, Cigarette nicotine dependenc e without complication F17.210 [facility] [address] [facility] [id number] [address] [place] [phone] 18 May, 2018 [facility] [address] [facility] [id number] [address] [place] [phone] 14 May, 2018 Type 2 diabetes mellitus wit hout complication, without long-term current use of insulin E11.9 ; Essential hypertension I10 ; Hypothyroidism (acquired) E03.9 and Dyslipidemia E78.5 [facility] [address] [facility] [id number] [address] [place] [phone] May, [facility] [address] [place] [id number] [address] [place] [phone] May, Schizoaffective disorder, de pressive type F25.1 [facility] [address] [place] [id number] [address] [place] [phone] 08 May, 2018 Paranoid schizophrenia F20.0 [facility] [address] [phone] May, [facility] [place] [address] [place] [address] 07 May, [facility] [address] [phone] May, [place] [address] [address] May, Type 2 diabetes mellitus wit hout complication, without long-term current use of insulin E11.9 ; Essential hypertension I10 ; Hypothyroidism (acquired) E03.9 and Dyslipidemia E78.5 [facility] [address] [place] [id number] [address] [place] [phone] May, [facility] [address] [place] [id number] [address] [place] [phone] May, Acute nasopharyngitis J00 [facility] [address] [place] [id number] [address] [place] [address] May, Allergic rhinitis, unspecifi ed seasonality, unspecified trigger J30.9 [facility] [address] [place] [phone] May, [facility] [address] [place] [id number] [address] [place] [phone] Apr, Schizoaffective disorder, de pressive type F25.1 [facility] [address] [place] [id number] [address] [place] [phone] Apr, [facility] [address] [facility] [id number] [address] [place] [address] Apr, Cigarette nicotine dependenc e without complication F17.210 [facility] [address] [facility] [id number] [address] [place] [phone] Apr, [facility] [address] [facility] [id number] [address] [place] [address] Apr, Cigarette nicotine dependenc e without complication F17.210 [facility] [address] [facility] [id number] [address] [place] [phone] Apr, [place] [address] [place] [id number] [place] [address] Apr, Migraine without aura and wi thout status migrainosus, not intractable G43.009 [place] [address] [place] [id number] [address] [place] [address] Apr, Migraine without aura and wi thout status migrainosus, not intractable G43.009 [place] [address] [place] [id number] [address] [place] [phone] Mar, Schizoaffective disorder, de pressive type F25.1 ; BMI 45.0-49.9, adult Z68.42 and BMI 40.0-44.9, adult Z68.41 [place] [address] [place] [address] Mar, Primary insomnia F51.01 [place] [address] [facility] [id number] [address] [place] [phone] Mar, [place] [address] [place] [id number] [place] [address] Feb, Primary insomnia F51.01 [place] [address] [facility] [id number] [address] [place] [phone] Feb, [place] [address] [place] [id number] [address] [place] [phone] Jan, Schizoaffective disorder, de pressive type F25.1 and BMI 45.0-49.9, adult Z68.42 [place] [id number] [facility] [id number] [address] [place] [phone] Jan, [facility] [address] [id number] [address] [place] [phone] 16 Jan, 2018 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, without long-term current use of insulin E11.610 ; Menopausal syndrome (hot flashes) N95.1 ; BMI 40.0-44.9, adult Z68.41 and Morbid obesity E66.01 [place] [address] [facility] [id number] [address] [place] [phone] Jan, Paranoid schizophrenia F20.0 [place] [address] [place] [id number] [address] [place] [phone] Jan, [place] [address] [place] [id number] [place] [address] Jan, Schizoaffective disorder, de pressive type F25.1 [place] [address] [facility] [id number] [place] [phone] Jan, [place] [address] [facility] [id number] [address] [place] [phone] Jan, Chronic obstructive pulmonar y disease, unspecified COPD type J44.9 ; BMI 45.0-49.9, adult Z68.42 ; Type 2 diabetes mellitus without complication, without long-term current use of insulin E11.9 ; Hypothyroidism (acquired) E03.9 ; Encounter for immunization Z23 ; Gastroesophageal reflux disease without esophagitis K21.9 ; Primary insomnia F51.01 and Acute nasopharyngitis J00 [place] [address] [facility] [id number] [address] [place] [phone] Dec, [facility] [address] [facility] [id number] [address] [place] [phone] Dec, Schizoaffective disorder, de pressive type F25.1 and BMI 45.0-49.9, adult Z68.42 [facility] [address] [id number] [address] [place] [phone] Dec, [facility] [address] [facility] [id number] [address] [place] [phone] 18 Dec, 2017 [facility] [address] [facility] [id number] [address] [place] [phone] 18 Dec, 2017 Acute non-recurrent frontal sinusitis J01.10 [facility] [address] [id number] [address] [place] [phone] 18 Dec, 2017 Acute non-recurrent frontal sinusitis J01.10 ; Weakness of left leg R29.898 ; At high risk for falls Z91.81 and BMI 45.0-49.9, adult Z68.42 [facility] [address] [facility] [id number] [address] [place] [phone] 17 Dec, 2017 [facility] [address] [facility] [id number] [address] [place] [phone] Dec, [facility] [address] [facility] [id number] [address] [place] [phone] Dec, Schizoaffective disorder, de pressive type F25.1 [facility] [address] [id number] [address] [place] [phone] Dec, Acute nasopharyngitis J00 [facility] [address] [id number] [address] [place] [phone] Dec, Schizoaffective disorder, de pressive type F25.1 [facility] [address] [id number] [address] [place] [id number] Dec, [facility] [address] [facility] [id number] [address] [place] [phone] Nov, Schizoaffective disorder, de pressive type F25.1 and BMI 45.0-49.9, adult Z68.42 [facility] [address] [place] [phone] Nov, [place] [address] [facility] [id number] [address] [place] [id number] Nov, [place] [address] [address] [place] [id number] [place] [id number] Nov, Schizoaffective disorder, de pressive type F25.1 [place] [address] [address] [place] [id number] [address] [place] [phone] Nov, Well woman exam Z01.419 ; BM I 45.0-49.9, adult Z68.42 ; Screening breast examination Z12.31 and Dietary counseling and surveillance Z71.3 [place] [address] [address] [place] [id number] [address] [place] [phone] Nov, Paranoid schizophrenia F20.0 [place] [address] [address] [place] [id number] [address] [place] [phone] Nov, Gastroesophageal reflux dise ase, esophagitis presence not specified K21.9 [place] [address] [place] [phone] Oct, Paranoid schizophrenia F20.0 [facility] [id number] [place] [phone] Oct, Chronic pain syndrome G89.4 and Schizoaf fective disorder, depressive type F25.1 [place] [address] [place] [phone] Oct, Chronic pain syndrome G89.4 and Schizoaffective disorder, depressive type F25.1 [place] [address] [address] [facility] [id number] [address] [place] [phone] Oct, Type 2 diabetes mellitus wit hout complication, without long-term current use of insulin E11.9 [place] [address] [address] [place] [id number] [place] [phone] Oct, Essential hypertension I10 a nd DM neuro manif type II E11.49 [place] [address] [address] [facility] [id number] [address] [place] [id number] Oct, [facility] [address] [facility] [id number] [address] [place] [phone] Oct, Schizoaffective disorder, de pressive type F25.1 and BMI 45.0-49.9, adult Z68.42 [facility] [address] [place] [id number] [place] [phone] Oct, [facility] [address] [place] [id number] [place] [phone] Oct, Paranoid schizophrenia F20.0 [place] [address] [address] [place] [id number] [place] [phone] Oct, 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, without long-term current use of insulin E11.610 ; Essential hypertension I10 ; Hypothyroidism (acquired) E03.9 ; Chronic obstructive pulmonary disease, unspecified COPD type J44.9 and Diabetic polyneuropathy associated with type 2 diabetes mellitus E11.42 [facility] [address] [place] [id number] [place] [phone] Sep, Paranoid schizophrenia F20.0 [facility] [address] [address] [id number] [address] [place] [phone] Sep, Paranoid schizophrenia F20.0 and BMI 45.0-49.9, adult Z68.42 [facility] [address] [address] [id number] [address] [place] [phone] Sep, Schizoaffective disorder, de pressive type F25.1 [facility] [address] [facility] [id number] [address] [place] [phone] Sep, [facility] [address] [id number] [place] [phone] Sep, Paranoid schizophrenia F20.0 [facility] [address] [address] [id number] [place] [phone] Sep, [facility] [address] [facility] [id number] [address] [place] [phone] Sep, Hypothyroidism (acquired) E0 3.9 [facility] [address] [facility] [id number] [address] [place] [phone] Sep, [facility] [address] [id number] [place] [phone] August, Schizoaffective disorder, de pressive type F25.1 [facility] [address] [address] [id number] [place] [phone] August, [facility] [address] [place] [id number] [place] [phone] August, [facility] [address] [place] [id number] [place] [address] August, [facility] [address] [place] [id number] [place] [address] August, Paranoid schizophrenia F20.0 [facility] [address] [id number] [place] [phone] August, History of lupus Z87.39 and Chronic pain syndrome G89.4 [facility] [address] [id number] [place] [phone] August, [facility] [id number] [place] [id number] August, Seasonal allergic rhinitis, unspecified trigger J30.2 and BMI 45.0-49.9, adult Z68.42 [facility] [address] [facility] [id number] [address] [place] [phone] Jul, Schizoaffective disorder, de pressive type F25.1 [facility] [address] [id number] [place] [phone] Jul, [facility] [address] [id number] [place] [address] Jul, Hypothyroidism (acquired) E0 3.9 [facility] [address] [address] [id number] [place] [id number] Jul, Chronic obstructive pulmonar y disease, unspecified COPD type J44.9 and Type 2 diabetes mellitus without complication, without long-term current use of insulin E11.9 [facility] [address] [address] Jul, Paranoid schizophrenia F20.0 [facility] [address] [address] Jun, Hypothyroidism (acquired) E0 3.9 and Seasonal allergic rhinitis due to pollen J30.1 [facility] [address] [id number] [place] [address] Jun, Shortness of breath at rest R06.02 ; COPD exacerbation J44.1 and BMI 45.0-49.9, adult Z68.42 [facility] [address] [address] Jun, [facility] [address] [address] Jun, Paranoid schizophrenia F20.0 ; Depression with anxiety F41.8 and BMI 45.0-49.9, adult Z68.42 [facility] [address] [address] Jun, Schizoaffective disorder, de pressive type F25.1 [facility] [id number] [place] [id number] Jun, Dental caries K02.9 [facility] [address] [address] Jun, Paranoid schizophrenia F20.0 [facility] [address] [facility] [id number] [address] [place] [address] May, Migraine without aura and wi thout status migrainosus, not intractable G43.009 ; DM neuro manif type II E11.49 and Type 2 diabetes mellitus without complication, without long-term current use of insulin E11.9 [facility] [address] [address] May, Migraine without aura and wi thout status migrainosus, not intractable G43.009 [facility] [address] [address] May, Depression with anxiety F41. 8 [facility] [address] [facility] [id number] [address] [place] [address] [id number] May, [place] [address] [address] May, [facility] [address] [address] May, [place] [address] [address] May, Hypothyroidism (acquired) E0 3.9 [facility] [address] [address] May, Paranoid schizophrenia F20.0 [facility] [address] [address] 08 May, 2017 Type 2 diabetes mellitus wit hout [...] N32.81 and Controlled substance agreement signed Z79.899 [place] [address] [place] [address] May, Controlled substance agreeme nt signed Z79.899 [facility] [address] [facility] [id number] [address] [place] [phone] Apr, [facility] [address] [id number] [address] [place] [address] [id number] Apr, Dental examination Z01.20 [facility] [address] [facility] [id number] [address] [place] [phone] Apr, Paranoid schizophrenia F20.0 [facility] [address] [id number] [place] [phone] Apr, Hypertension, unspecified ty pe I10 [facility] [address] [id number] [place] [phone] Apr, Paranoid schizophrenia F20.0 [facility] [address] [place] [id number] [address] [place] [phone] Apr, [facility] [address] [id number] [place] [phone] Apr, Tobacco abuse Z72.0 [facility] [address] [id number] [place] [phone] Apr, [facility] [address] [id number] [address] [place] [phone] Mar, [facility] [address] [id number] [place] [phone] Mar, Paranoid schizophrenia F20.0 and BMI 45.0-49.9, adult Z68.42 [facility] [address] [id number] [place] [phone] Mar, Schizoaffective disorder, de pressive type F25.1 [facility] [address] [id number] [place] [id number] Mar, [facility] [address] [id number] [place] [address] Mar, Hypothyroidism, unspecified type E03.9 [place] [id number] [address] Mar, Schizoaffective disorder, de pressive type F25.1 [facility] [address] [address] Feb, Gastroenteritis K52.9 and BM I 45.0-49.9, adult Z68.42 [facility] [address] [address] Feb, [place] [address] [address] Feb, [place] [address] [address] Feb, [place] [address] [address] Feb, [facility] [address] [address] Feb, Paranoid schizophrenia F20.0 [place] [address] [address] Feb, Gastroesophageal reflux dise ase without esophagitis K21.9 ; Other seasonal allergic rhinitis J30.2 ; Other allergic rhinitis J30.89 ; Tobacco abuse Z72.0 and BMI 40.0-44.9, adult Z68.41 [facility] [address] [address] Feb, Onychomycosis B35.1 ; Callus of foot L84 and DM neuro manif type II E11.49 [place] [address] [address] Jan, Chronic allergic rhinitis J3 0.9 [place] [address] [address] Jan, [facility] [address] [facility] [id number] [address] [place] [phone] Jan, Schizoaffective disorder, de pressive type F25.1 [facility] [address] [facility] [id number] [address] [place] [phone] 10 Jan, 2017 [facility] [address] [facility] [id number] [address] [place] [phone] 07 Jan, 2017 Sore throat J02.9 and Season al allergic rhinitis due to other allergic trigger J30.89 [facility] [address] [facility] [id number] [address] [place] [phone] Jan, [place] [address] [facility] [id number] [address] [place] [phone] Jan, [facility] [address] [place] [id number] [address] [place] [phone] Jan, Chronic allergic rhinitis J3 0.9 [facility] [address] [place] [id number] [place] [address] 27 Dec, 2016 Paranoid schizophrenia F20.0 ; Primary insomnia F51.01 and Schizoaffective disorder, depressive type F25.1 [place] [address] [place] [id number] [place] [address] 21 Dec, 2016 Chronic pain syndrome G89.4 ; Cervicalgia of xaqicmpp-dlehthc-swizq region M54.2 ; Menopausal syndrome (hot flashes) N95.1 and Encounter for immunization Z23 [facility] [address] [facility] [id number] [address] [place] [phone] 14 Dec, 2016 [place] [address] [place] [id number] [place] [phone] 13 Dec, 2016 [place] [address] [place] [id number] [place] [phone] 08 Dec, 2016 Paranoid schizophrenia F20.0 [place] [address] [place] [id number] [place] [address] Dec, Schizoaffective disorder, de pressive type F25.1 [facility] [address] [facility] [id number] [address] [place] [phone] Nov, Hypothyroidism, unspecified type E03.9 [facility] [address] [facility] [id number] [address] [place] [phone] Nov, Acute seasonal allergic rhin itis due to other allergen J30.89 [facility] [address] [facility] [id number] [address] [place] [phone] Nov, [facility] [address] [facility] [id number] [address] [place] [phone] Nov, Hypothyroidism, unspecified type E03.9 and Other elevated white blood cell (WBC) count D72.828 [place] [address] [facility] [id number] [address] [place] [phone] Nov, Schizoaffective disorder, de pressive type F25.1 [facility] [address] [facility] [id number] [address] [place] [phone] Nov, Paranoid schizophrenia F20.0 [facility] [address] [place] [id number] [place] [phone] Nov, Type 2 diabetes mellitus wit hout complication, without long-term current use of insulin E11.9 ; Morbid obesity due to excess calories E66.01 and Chronic pain syndrome G89.4 [facility] [address] [facility] [id number] [address] [place] [phone] Oct, Paranoid schizophrenia F20.0 [facility] [address] [facility] [id number] [address] [place] [phone] Oct, [place] [address] [facility] [id number] [address] [place] [phone] Oct, Schizoaffective disorder, de pressive type F25.1 [facility] [address] [facility] [id number] [address] [place] [phone] Oct, Hypothyroidism, unspecified type E03.9 and Other elevated white blood cell (WBC) count D72.828 [facility] [address] [facility] [id number] [address] [place] [phone] Oct, Morbid obesity due to excess calories E66.01 ; Chronic obstructive pulmonary disease, unspecified COPD type J44.9 ; History of lupus Z87.39 ; Hypothyroidism, unspecified type E03.9 ; Gastroesophageal reflux disease without esophagitis K21.9 ; Primary insomnia F51.01 and Chronic pain syndrome G89.4 [facility] [address] [id number] [address] [place] [phone] Sep, [facility] [address] [facility] [id number] [address] [place] [phone] Sep, [facility] [address] [facility] [id number] [address] [place] [phone] Sep, [facility] [address] [facility] [id number] [address] [place] [phone] Sep, Paranoid schizophrenia F20.0 [facility] [address] [id number] [address] [place] [phone] Sep, [facility] [address] [facility] [id number] [address] [place] [phone] Sep, Paranoid schizophrenia F20.0 [facility] [address] [facility] [id number] [address] [place] [phone] Sep, [facility] [address] [facility] [id number] [address] [place] [address] August, Paranoid schizophrenia F20.0 [facility] [address] [id number] [address] [place] [phone] Jul, [facility] [address] [facility] [id number] [address] [place] [phone] Jul, Type 2 diabetes mellitus wit hout complication, without long-term current use of insulin E11.9 ; Morbid obesity due to excess calories E66.01 ; Depression with anxiety F41.8 ; Hypothyroidism, unspecified type E03.9 ; Seasonal allergic rhinitis due to other allergic trigger J30.89 ; Pain, dental K08.89 and Gastroesophageal reflux disease without esophagitis K21.9 [facility] [address] [id number] [address] [place] [id number] Jul, 2016 Dental examination Z01.20 [place] [id number] [facility] [id number] [address] [place] [phone] 07 Jul, 2016 Paranoid schizophrenia F20.0 [place] [address] [place] [id number] [place] [id number] 13 Jun, 2016 Paranoid schizophrenia F20.0 and Depression with anxiety F41.8 [place] [address] [address] 10 Jun, 2016 Paranoid schizophrenia F20.0 and Depression with anxiety F41.8 [place] [id number] [place] [id number] 09 Jun, 2016 [facility] [address] [place] [id number] [place] [phone] Jun, [facility] [address] [address] Jun, Seasonal allergic rhinitis d ue to other allergic trigger J30.89 [facility] [address] [place] [id number] [place] [phone] May, Sore throat J02.9 ; Other vi ral agents as the cause of diseases classified elsewhere B97.89 and Acute upper respiratory infection, unspecified J06.9 [place] [address] [place] [id number] [place] [phone] 08 May, 2016 Paranoid schizophrenia F20.0 and Depression with anxiety F41.8 [place] [address] [place] [id number] [place] [phone] Apr, Other seasonal allergic rhin itis J30.2 [place] [address] [address] Apr, Paranoid schizophrenia F20.0 and Depression with anxiety F41.8 [facility] [address] [address] Apr, Bronchitis J40 and Sore thro at J02.9 [facility] [address] [place] [id number] [place] [address] Apr, Type 2 diabetes mellitus wit hout complication, without long-term current use of insulin E11.9 [facility] [address] [address] Apr, Bronchitis J40 [place] [address] [address] Apr, [place] [address] [address] Apr, [facility] [address] [address] Mar, Type 2 diabetes mellitus wit hout complication, without long-term current use of insulin E11.9 ; Paranoid schizophrenia F20.0 ; Depression with anxiety F41.8 ; ARISA on CPAP G47.33 ; Gastroesophageal reflux disease without esophagitis K21.9 ; Acquired hypothyroidism E03.9 ; Chronic obstructive pulmonary disease, unspecified COPD type J44.9 ; OAB (overactive bladder) N32.81 ; Chronic pain syndrome G89.4 ; Peripheral edema R60.9 and Other seasonal allergic rhinitis J30.2 [place] [address] [address] Mar, Paranoid schizophrenia F20.0 and Depression with anxiety F41.8 [place] [address] [address] Feb, [place] [address] [address] Feb, [place] [address] [place] [address] Feb, [facility] [address] [id number] [address] [place] [phone] Feb, [facility] [address] [id number] [address] [place] [phone] 14 Feb, 2016 Type 2 diabetes mellitus wit hout complication, without long-term current use of insulin E11.9 ; ARIAS on CPAP G47.33 and Preoperative evaluation to rule out surgical contraindication Z01.818 [facility] [address] [id number] [address] [place] [phone] 09 Feb, 2016 Paranoid schizophrenia F20.0 and Depression with anxiety F41.8 [facility] [address] [id number] [address] [place] [phone] Jan, [facility] [address] [id number] [address] [place] [phone] Jan, Paranoid schizophrenia F20.0 and Depression with anxiety F41.8 [facility] [address] [id number] [address] [place] [phone] Jan, [facility] [address] [id number] [address] [place] [phone] Jan, Muscle strain T14.8 [facility] [address] [id number] [address] [place] [phone] Jan, Paranoid schizophrenia F20.0 [facility] [address] [id number] [address] [place] [phone] Jan, [facility] [address] [id number] [address] [place] [phone] Jan, Paranoid schizophrenia F20.0 and Depression with anxiety F41.8 [facility] [address] [id number] [address] [place] [id number] 05 Jan, 2016 [facility] [address] [id number] [address] [place] [phone] Jan, [facility] [address] [id number] [address] [place] [phone] 28 Dec, 2015 [facility] [address] [id number] [address] [place] [phone] 23 Dec, 2015 Paranoid schizophrenia F20.0 [facility] [address] [id number] [address] [place] [phone] 16 Dec, 2015 Paranoid schizophrenia F20.0 and Depression with anxiety F41.8 [facility] [address] [id number] [address] [place] [phone] Nov, [facility] [address] [id number] [address] [place] [phone] Nov, Paranoid schizophrenia F20.0 [facility] [address] [id number] [address] [place] [phone] Nov, Paranoid schizophrenia F20.0 and Depression with anxiety F41.8 [facility] [address] [id number] [address] [place] [phone] Nov, Type 2 diabetes mellitus wit hout complication, without long-term current use of insulin E11.9 ; Paranoid schizophrenia F20.0 ; Chronic obstructive pulmonary disease, unspecified COPD type J44.9 ; Morbid obesity due to excess calories E66.01 and Parkinsonian tremor G20 [facility] [address] [id number] [address] [place] [id number] Nov, [facility] [address] [id number] [address] [place] [id number] Oct, Paranoid schizophrenia F20.0 [facility] [address] [id number] [address] [place] [id number] Oct, Paranoid schizophrenia F20.0 [facility] [address] [id number] [address] [place] [id number] Oct, Paranoid schizophrenia F20.0 and Depression with anxiety F41.8 [facility] [address] [id number] [place] [phone] Oct, [place] [address] [id number] Oct, Paranoid schizophrenia F20.0 and Depression with anxiety F41.8 [place] [address] [id number] Oct, Nasal sore J34.89 [place] [address] [phone] Oct, Type 2 diabetes mellitus wit hout complication, without long-term current use of insulin E11.9 ; Depression with anxiety F41.8 ; Hypothyroidism, unspecified type E03.9 and History of lupus Z87.39 [place] [address] [id number] Oct, [place] [address] [phone] Oct, Type 2 diabetes mellitus wit hout [...] edema R60.9 and History of lupus Z87.39 [place] [address] [id number] Feb, [place] [address] [id number] Jan, [place] [address] [id number] Jan, [place] [address] [phone] Jan, [facility] [address] [id number] [address] [place] [address], [place] [phone] Dec, [facility] [address] [id number] [address] [place] [address], [place] [id number] Nov, [facility] [address] [id number] [address] [place] [address], [place] [phone] Nov, [facility] [address] [id number] [address] [place] [address], [place] [phone] Oct, [facility] [address] [id number] [address] [place] [address], [place] [phone] Oct, [facility] [address] [id number] [address] [place] [phone] Oct, [facility] [address] [id number] [address] [place] [id number] Sep, Allergic rhinitis 477.9 [facility] [address] [id number] [address] [place] [id number] Sep, Rhinitis, allergic 477.9 [facility] [address] [id number] [address] [place] [id number] Sep, Rhinitis, allergic 477.9 [facility] [address] [id number] [address] [place] [id number] Sep, [facility] [address] [id number] [address] [place] [address] August, [facility] [address] [id number] [address] [place] [id number] August, [facility] [address] [id number] [address] [place] [phone] August, [facility] [address] [id number] [address] [place] [phone] Jul, [facility] [address] [id number] [address] [place] [id number] 14 Jul, 2014 [facility] [address] [id number] [address] [place] [address], [place] [address] 13 Jul, 2014 [facility] [address] [id number] [address] [place] [address], [place] [address] 16 Jun, 2014 [facility] [address] [id number] [address] [place] [address], [place] [address] 16 Jun, 2014 [facility] [address] [id number] [address] [place] [address], [place] [address] Jun, [facility] [address] [id number] [address] [place] [address], [place] [address] Jun, [facility] [address] [id number] [address] [place] [address], [place] [address] Jun, [facility] [address] [id number] [address] [place] [address], [place] [address] Jun, [facility] [address] [id number] [address] [place] [address], [place] [address] Jun, [facility] [address] [id number] [address] [place] [address], [place] [address] Jun, [facility] [address] [id number] [address] [place] [address], [place] [address] May, [facility] [address] [id number] [address] [place] [address], [place] [address] May, [facility] [address] [id number] [address] [place] [address], [place] [address] May, [facility] [address] [id number] [address] [place] [address], [place] [address] May, [facility] [address] [id number] [address] [place] [address], [place] [address] Apr, [facility] [address] [id number] [address] [place] [address], [place] [address] Mar, [facility] [address] [id number] [address] [place] [address], [place] [address] Mar, [facility] [address] [id number] [address] [place] [address], [place] [address] Mar, [facility] [address] [id number] [address] [place] [address], [place] [address] Mar, [facility] [address] [id number] [address] [place] [address], [place] [address] Mar, [facility] [address] [id number] [address] [place] [address], [place] [address] Mar, [facility] [address] [id number] [address] [place] [address], [place] [address] Mar, [facility] [address] [id number] [address] [place] [address], [place] [address] Mar, [facility] [address] [id number] [address] [place] [address], [place] [address] Mar, [facility] [address] [id number] [address] [place] [address], [place] [address] Feb, [facility] [address] [id number] [address] [place] [address], [place] [address] Feb, [facility] [address] [id number] [address] [place] [address], [place] [address] Feb, [facility] [address] [id number] [address] [place] [address], [place] [address] 17 Feb, 2014 [facility] [address] [id number] [address] [place] [address], [place] [address] Feb, [facility] [address] [id number] [address] [place] [address], [place] [address] Feb, [facility] [address] [id number] [address] [place] [address], [place] [address] Feb, [facility] [address] [id number] [address] [place] [address], [place] [address] Feb, [facility] [address] [id number] [address] [place] [address], [place] [address] 23 Jan, 2014 [facility] [address] [id number] [address] [place] [address], [place] [address] 23 Jan, 2014 [facility] [address] [id number] [address] [place] [address], [place] [address] 16 Jan, 2014 [facility] [address] [id number] [address] [place] [address], [place] [address] 16 Jan, 2014 [facility] [address] [id number] [address] [place] [address], [place] [address] 15 Jan, 2014 [facility] [address] [id number] [address] [place] [address], [place] [address] 15 Jan, 2014 [facility] [address] [id number] [address] [place] [address], [place] [address] 14 Jan, 2014 [facility] [address] [id number] [address] [place] [address], [place] [address] 14 Jan, 2014 [facility] [address] [id number] [address] [place] [address], [place] [address] 14 Jan, 2014 [facility] [address] [id number] [address] [place] [address] 14 Jan, 2014 [facility] [address] [id number] [address] [place] [address] 18 Dec, 2013 [facility] [address] [id number] [address] [place] [address] 18 Dec, 2013 [facility] [address] [id number] [address] [place] [address], [place] [address] 10 Dec, 2013 [facility] [address] [id number] [address] [place] [address], [place] [address] 10 Dec, 2013 [facility] [address] [id number] [address] [place] [address], [place] [address] 22 Nov, 2013 [facility] [address] [id number] [address] [place] [address] Nov, [facility] [address] [id number] [address] [place] [address], [place] [address] Nov, [facility] [address] [id number] [address] [place] [address], [place] [address] Nov, [facility] [address] [id number] [address] [place] [address], [place] [address] Nov, [facility] [address] [id number] [address] [place] [address], [place] [address] Oct, [facility] [address] [id number] [address] [place] [address], [place] [address] Oct, [facility] [address] [id number] [address] [place] [address], [place] [address] Oct, [facility] [address] [id number] [address] [place] [address], [place] [address] Oct, [facility] [address] [id number] [address] [place] [address], [place] [address] Sep, [facility] [address] [id number] [address] [place] [address], [place] [address] Sep, [facility] [address] [id number] [address] [place] [address], [place] [address] Sep, [facility] [address] [id number] [address] [place] [address], [place] [address] Sep, [facility] [address] [id number] [address] [place] [address], [place] [address] Sep, [facility] [address] [id number] [address] [place] [address], [place] [address] Sep, [facility] [address] [id number] [address] [place] [address], [place] [address] Sep, [facility] [address] [id number] [address] [place] [address], [place] [address] Sep, [facility] [address] [id number] [facility] [place] [address] August, [facility] [address] [id number] [facility] [place] [address] August, [facility] [address] [id number] [facility] [place] [address] August, [facility] [address] [id number] [address] [place] [address], [place] [address] August, [facility] [address] [id number] [address] [place] [address], [place] [address] August, [facility] [address] [id number] [address] [place] [address], [place] [address] August, [facility] [address] [id number] [address] [place] [address], [place] [address] August, [facility] [address] [id number] [address] [place] [address], [place] [address] Jul, [facility] [address] [id number] [address] [place] [address], [place] [address] Jul, [facility] [address] [id number] [address] [place] [address], [place] [address] Jul, [facility] [address] [id number] [address] [place] [address], [place] [address] Jul, [facility] [address] [id number] [address] [place] [address], [place] [address] Jul, [facility] [address] [id number] [address] [place] [address], [place] [address] Jul, [facility] [address] [id number] [address] [place] [address], [place] [address] 2013 [facility] [address] [id number] [address] [place] [address], [place] [address] Jul, [facility] [address] [id number] [address] [place] [address], [place] [address] Jul, [facility] [address] [id number] [facility] [place] [address] Jul, [facility] [address] [id number] [address] [place] [address], [place] [address] Jul, [facility] [address] [id number] [address] [place] [address], [place] [address] Jul, [facility] [address] [id number] [address] [place] [address], [place] [address] Jun, [facility] [address] [id number] [address] [place] [address], [place] [address] Jun, [facility] [address] [id number] [address] [place] [address], [place] [address] Jun, [facility] [address] [id number] [address] [place] [address], [place] [address] Jun, [facility] [address] [id number] [address] [place] [address], [place] [address] Jun, [facility] [address] [id number] [address] [place] [address], [place] [address] May, [facility] [address] [id number] [address] [place] [address], [place] [address] May, [facility] [address] [id number] [address] [place] [address], [place] [address] May, [facility] [address] [id number] [address] [place] [address], [place] [address] May, [facility] [address] [id number] [address] [place] [address], [place] [address] May, [facility] [address] [id number] [address] [place] [address], [place] [address] May, [facility] [address] [id number] [address] [place] [address], [place] [address] May, [facility] [address] [id number] [address] [place] [address], [place] [address] May, [facility] [address] [id number] [address] [place] [address], [place] [address] Mar, [facility] [address] [id number] [address] [place] [address], [place] [address] Mar, [facility] [address] [id number] [address] [place] [address], [place] [address] Mar, [facility] [address] [id number] [address] [place] [address], [place] [address] Mar, [facility] [address] [id number] [address] [place] [address], [place] [address] Mar, [facility] [address] [id number] [address] [place] [address], [place] [address] Mar, [facility] [address] [id number] [address] [place] [address], [place] [address] Feb, [facility] [address] [id number] [address] [place] [address], [place] [address] Feb, [facility] [address] [id number] [address] [place] [address], [place] [address] Jan, [facility] [address] [id number] [address] [place] [address], [place] [address] Jan, [facility] [address] [id number] [address] [place] [address], [place] [address] Jan, [facility] [address] [id number] [address] [place] [address] Jan, [facility] [address] [id number] [address] [place] [address], [place] [address] Jan, [facility] [address] [id number] [address] [place] [address] Jan, [facility] [address] [id number] [address] [place] [address] [address] Jan, [facility] [address] [id number] [address] [place] [address], [place] [address] Jan, [facility] [address] [id number] [address] [place] [address], [place] [address] Jan, [facility] [address] [id number] [address] [place] [address], [place] [address] Jan, [facility] [address] [id number] [address] [place] [address], [place] [address] Dec, [facility] [address] [id number] [address] [place] [address], [place] [address] Nov, [facility] [address] [id number] [address] [place] [address], [place] [address] Nov, [facility] [address] [id number] [address] [place] [address], [place] [address] Nov, [facility] [address] [id number] [address] [place] [address], [place] [address] Oct, [facility] [address] [id number] [address] [place] [address], [place] [address] Oct, [facility] [address] [id number] [address] [place] [address], [place] [address] August, [facility] [address] [id number] [address] [place] [address], [place] [address] Apr, [facility] [address] [id number] [address] [place] [address], [place] [address] Apr, [facility] [address] [id number] [address] [place] [address], [place] [address] Feb, [facility] [address] [id number] [address] [place] [address], [place] [address] Feb, [facility] [address] [id number] [address] [place] [address], [place] [address] Dec, [facility] [address] [id number] [address] [place] [address] Dec, [facility] [address] [facility] [id number] [address] [place] [address] Oct, [facility] [address] [facility] [id number] [address] [place] [address] Oct, [facility] [address] [facility] [id number] [address] [place] [address] Oct, [facility] [address] [facility] [id number] [address] [place] [address] Jul, IMMUNIZATIONS No Known Immunizations SOCIAL HISTORY [...] psychosis/mental illness, last one in [facility] 4 years ago Hospitalization History broken ankle 08/2018
--- OUTSIDE RECORDS SUMMARY | 2019-07-07 04:15 | XMS REPORT ---
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 Role Phone RADHA ROJAS Unavailable PROBLEMS Type Condition ICD9-CM Code UPY27-AN Code Onset Dates Condition S tatus SNOMED Code Problem Depression with anxiety F41.8 Active 070842628 Problem Morbid obesity due to excess calories E66.01 Active 531993150 Problem Chronic obstructive pulmonary disease, unspecified COPD ty pe J44.9 Active 15528749 Problem Paranoid schizophrenia F20.0 Active 96343366 Problem Chronic pain syndrome G89.4 Active 303503561 Problem History of lupus Z87.39 Active 312 674902 Problem Type 2 diabetes mellitus wit hout complication, without long-term current use of insulin E11.9 Active 759180266 Problem Dyslipidemia E78.5 Active 1167018 07 Problem Migraine without aura and without status migrain osus, not intractable G43.009 Active 894946212 Problem Primary insomnia F51.01 Active 397 2004 Problem Schizoaffective disorder, depressive type F25.1 Active 70581261 Problem Menopausal syndrome (hot flashes) N95.1 Active 008995745 Problem DM neuro manif type II E11.49 Active 77416823 Problem Other seasonal allergic rhinitis J30.2 Active 988548638 Problem Other allergic rhinitis J30.89 Active 416729247 Problem Gastroesophageal reflux disease, esophagitis pre sence not specified K21.9 Active 982540693 Problem Tobacco abuse Z72.0 Active 385492 000 Problem Essential hypertension I10 Active 36767811 Problem Hypothyroidism (acquired) E03.9 Acti ve 130948243 Problem COPD exacerbation J44.1 Active 19 9470135 Problem Allergic rhinitis, unspecified seasonality, unspecifie d trigger J30.9 Active 59718136 Problem Gastroesophageal reflux disease without esophagitis K21.9 Active 951291419 Problem Constipation by delayed colonic transit K59.01 Active 92990430 Problem OAB (overactive bladder) N32.81 Activ e 673101583 Problem Seasonal allergic rhinitis due to other allergic trigger J30.89 Active 857902886 Problem Seasonal allergic rhinitis due to pollen J30.1 Active 33324166 Problem 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, without long-term current use of insulin E11.610 Active 376084462 Problem Diabetic polyneuropathy associated with type 2 d iabetes mellitus E11.42 Active 281997235 Problem Cigarette nicotine dependence without complication F17.210 Active 94910657 ALLERGIES No Information ENCOUNTERS Encounter Location Date Diagnosis [facility] [address] [id number] [address] [place] [id number] Dec, [facility] [address] [id number] [address] [place] [phone] Dec, [facility] [address] [facility] [id number] [address] [place] [address] Nov, Paranoid schizophrenia F20.0 [facility] [address] [id number] [address] [place] [id number] Nov, [facility] [address] [facility] [id number] [address] [place] [phone] Nov, [facility] [address] [facility] [id number] [address] [place] [address] Nov, [facility] [address] [facility] [id number] [address] [place] [phone] Nov, Encounter for comprehensive diabetic foot examination, type 2 diabetes mellitus E11.9 and Morbid obesity E66.01 [facility] [address] [id number] [address] [place] [id number] Nov, [facility] [address] [facility] [id number] [address] [place] [id number] Nov, [facility] [address] [facility] [id number] [address] [place] [phone] Nov, [facility] [address] [facility] [id number] [address] [place] [phone] Nov, Schizoaffective disorder, de pressive type F25.1 [facility] [address] [facility] [id number] [address] [place] [id number] Nov, Constipation by delayed colo james transit K59.01 [facility] [address] [facility] [id number] [address] [place] [id number] Oct, [facility] [address] [facility] [id number] [address] [place] [id number] Oct, [facility] [address] [facility] [id number] [address] [place] [phone] Oct, [facility] [address] [facility] [id number] [address] [place] [id number] Oct, Chronic obstructive pulmonar y disease, unspecified COPD type J44.9 [facility] [address] [facility] [id number] [address] [place] [id number] Oct, [facility] [address] [facility] [id number] [address] [place] [id number] Sep, Paranoid schizophrenia F20.0 [facility] [address] [facility] [id number] [address] [place] [id number] Sep, [facility] [address] [facility] [id number] [address] [place] [phone] Sep, [facility] [address] [facility] [id number] [address] [place] [id number] Sep, Encounter for immunization Z 23 [facility] [address] [facility] [id number] [address] [place] [id number] Sep, [facility] [address] [place] [id number] [address] [place] [id number] Sep, Closed fracture of right ank le, sequela S82.891S ; Morbid obesity E66.01 and Heat rash L74.0 [facility] [address] [facility] [id number] [address] [place] [address] Sep, Schizoaffective disorder, de pressive type F25.1 [facility] [address] [id number] [address] [place] [id number] Sep, [facility] [address] [id number] [address] [place] [phone] Sep, [facility] [address] [id number] [address] [place] [phone] Sep, [facility] [address] [id number] [address] [place] [id number] Sep, [facility] [address] [id number] [address] [place] [phone] Sep, [facility] [address] [id number] [address] [place] [phone] Sep, [facility] [address] [id number] [address] [place] [phone] Sep, [facility] [address] [id number] [address] [place] [phone] Sep, [facility] [address] [id number] [address] [place] [phone] Sep, [facility] [address] [id number] [address] [place] [id number] August, Paranoid schizophrenia F20.0 [facility] [address] [id number] [address] [place] [id number] August, [facility] [address] [id number] [address] [place] [phone] August, [facility] [address] [id number] [address] [place] [id number] August, [facility] [address] [facility] [id number] [address] [place] [address] August, Type 2 diabetes mellitus wit hout complication, without long-term current use of insulin E11.9 ; Closed fracture of right ankle, initial encounter S82.891A ; Constipation by delayed colonic transit K59.01 ; Osteoporosis with pathological fracture, initial encounter M80.00XA ; Encounter for immunization Z23 and Morbid obesity E66.01 [facility] [address] [facility] [id number] [address] [place] [address] August, [facility] [address] [facility] [id number] [address] [place] [phone] August, [facility] [address] [facility] [id number] [address] [place] [id number] August, Acquired deformity of muscul oskeletal system, unspecified M95.9 [facility] [address] [facility] [id number] [address] [place] [phone] August, Paranoid schizophrenia F20.0 [facility] [address] [id number] [address], [place] [address] August, [facility] [address] [facility] [id number] [address] [place] [id number] Jul, [facility] [address] [facility] [id number] [address] [place] [address] Jul, Diabetic polyneuropathy asso ciated with type 2 diabetes mellitus E11.42 ; Paranoid schizophrenia F20.0 ; Preoperative clearance Z01.818 and Morbid obesity E66.01 [facility] [address] [facility] [id number] [address] [place] [address] Jul, Paranoid schizophrenia F20.0 [facility] [address] [facility] [id number] [address] [place] [id number] Jul, [facility] [address] [facility] [id number] [address] [place] [address] Jul, [facility] [address] [place] [id number] [address] [place] [id number] Jul, Cigarette nicotine dependenc e without complication F17.210 [facility] [address] [facility] [id number] [address] [place] [id number] Jul, Type 2 diabetes mellitus wit hout complication, without long-term current use of insulin E11.9 and Hypothyroidism (acquired) E03.9 [place] [address] [facility] [id number] [address] [place] [address] Jul, Encounter for Medicare laureen wellness exam Z00.00 ; Morbid obesity due to excess calories E66.01 ; Diabetic polyneuropathy associated with type 2 diabetes mellitus E11.42 ; Chronic obstructive pulmonary disease, unspecified COPD type J44.9 ; Schizoaffective disorder, depressive type F25.1 ; Hypothyroidism (acquired) E03.9 and Morbid obesity E66.01 [place] [address] [id number] [address] [place] [id number] Jun, Gastroesophageal reflux dise ase without esophagitis K21.9 [place] [address] [facility] [id number] [address] [place] [id number] Jun, Paranoid schizophrenia F20.0 [place] [address] [facility] [id number] [address] [place] [address] Jun, Schizoaffective disorder, de pressive type F25.1 [place] [address] [facility] [id number] [address] [place] [phone] Jun, [place] [address] [facility] [id number] [address] [place] [id number] Jun, Schizoaffective disorder, de pressive type F25.1 [place] [address] [facility] [id number] [address] [place] [address] Jun, Cigarette nicotine dependenc e without complication F17.210 [place] [address] [id number] [address] [place] [address] Jun, Type 2 diabetes mellitus wit hout complication, without long-term current use of insulin E11.9 [place] [address] [facility] [id number] [address] [place] [id number] 15 Jun, 2018 [place] [address] [facility] [id number] [address] [place] [phone] Jun, [facility] [address] [address] Jun, [facility] [address] [address] Jun, [facility] [address] [address] Jun, [facility] [address] [address] Jun, Paranoid schizophrenia F20.0 ; Type 2 diabetes mellitus without complication, without long-term current use of insulin E11.9 ; Hypothyroidism (acquired) E03.9 and Morbid obesity E66.01 [facility] [address] [address] 28 May, 2018 Paranoid schizophrenia F20.0 [place] [address] [id number] 20 May, 2018 Hypothyroidism (acquired) E0 3.9 and Dyslipidemia E78.5 [place] [address] [address] 19 May, 2018 Cigarette nicotine dependenc e without complication F17.210 [place] [address] [address] 18 May, 2018 [facility] [address] [address] 14 May, 2018 Type 2 diabetes mellitus wit hout complication, without long-term current use of insulin E11.9 ; Essential hypertension I10 ; Hypothyroidism (acquired) E03.9 and Dyslipidemia E78.5 [facility] [address] [address] 13 May, 2018 [facility] [address] [address] 08 May, 2018 Schizoaffective disorder, de pressive type F25.1 [place] [address] [address] 08 May, 2018 Paranoid schizophrenia F20.0 [place] [address] [address] 07 May, 2018 [facility] [place] [address] [place] [address] 07 May, 20 19 [place] [address] [address] May, [place] [address] [address] May, Type 2 diabetes mellitus wit hout complication, without long-term current use of insulin E11.9 ; Essential hypertension I10 ; Hypothyroidism (acquired) E03.9 and Dyslipidemia E78.5 [place] [address] [address] May, [place] [address] [address] May, Acute nasopharyngitis J00 [facility] [address] [address] May, Allergic rhinitis, unspecifi ed seasonality, unspecified trigger J30.9 [place] [address] [address] May, [facility] [address] [address] Apr, Schizoaffective disorder, de pressive type F25.1 [place] [address] [address] Apr, [place] [address] [address] Apr, Cigarette nicotine dependenc e without complication F17.210 [place] [address] [address] Apr, [facility] [address] [facility] [id number] [address] [place] [address] Apr, Cigarette nicotine dependenc e without complication F17.210 [facility] [address] [facility] [id number] [address] [place] [id number] Apr, [facility] [address] [place] [id number] [address] [place] [address] Apr, Migraine without aura and wi thout status migrainosus, not intractable G43.009 [facility] [address] [facility] [id number] [address] [place] [address] Apr, Migraine without aura and wi thout status migrainosus, not intractable G43.009 [facility] [address] [place] [id number] [address] [place] [address] Mar, Schizoaffective disorder, de pressive type F25.1 ; BMI 45.0-49.9, adult Z68.42 and BMI 40.0-44.9, adult Z68.41 [facility] [address] [place] [id number] [address] [place] [address] Mar, Primary insomnia F51.01 [facility] [address] [place] [id number] [address] [place] [address] Mar, [facility] [address] [place] [id number] [address] [place] [address] Feb, Primary insomnia F51.01 [facility] [address] [facility] [id number] [address] [place] [address] Feb, [facility] [address] [place] [id number] [address] [place] [address] Jan, Schizoaffective disorder, de pressive type F25.1 and BMI 45.0-49.9, adult Z68.42 [facility] [address] [place] [id number] [address] [place] [address] Jan, [place] [address] [facility] [id number] [address] [place] [address] Jan, 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, without long-term current use of insulin E11.610 ; Menopausal syndrome (hot flashes) N95.1 and BMI 40.0-44.9, adult Z68.41 [place] [address] [place] [id number] [address] [place] [address] Jan, Paranoid schizophrenia F20.0 [place] [address] [place] [id number] [place] [address] Jan, [place] [address] [place] [id number] [place] [address] Jan, Schizoaffective disorder, de pressive type F25.1 [place] [address] [place] [id number] [place] [address] Jan, [place] [address] [place] [id number] [place] [address] Jan, Chronic obstructive pulmonar y disease, unspecified COPD type J44.9 ; BMI 45.0-49.9, adult Z68.42 ; Type 2 diabetes mellitus without complication, without long-term current use of insulin E11.9 ; Hypothyroidism (acquired) E03.9 ; Encounter for immunization Z23 ; Gastroesophageal reflux disease without esophagitis K21.9 ; Primary insomnia F51.01 and Acute nasopharyngitis J00 [place] [address] [place] [id number] [place] [address] Dec, [place] [address] [place] [id number] [place] [address] Dec, Schizoaffective disorder, de pressive type F25.1 and BMI 45.0-49.9, adult Z68.42 [place] [address] [place] [id number] [place] [address] Dec, [place] [address] [place] [id number] [place] [address] 18 Dec, 2017 [facility] [address] [id number] [address] [place] [id number] 18 Dec, 2017 Acute non-recurrent frontal sinusitis J01.10 [facility] [address] [id number] [address] [place] [id number] 18 Dec, 2017 Acute non-recurrent frontal sinusitis J01.10 ; Weakness of left leg R29.898 ; At high risk for falls Z91.81 and BMI 45.0-49.9, adult Z68.42 [facility] [address] [id number] [address] [place] [id number] 17 Dec, 2017 [facility] [address] [id number] [address] [place] [address] Dec, [facility] [address] [facility] [id number] [address] [place] [address] Dec, Schizoaffective disorder, de pressive type F25.1 [facility] [address] [id number] [address] [place] [id number] Dec, Acute nasopharyngitis J00 [facility] [address] [id number] [address] [place] [address] 05 Dec, 2017 Schizoaffective disorder, de pressive type F25.1 [facility] [address] [id number] [address] [place] [id number] Dec, [facility] [address] [facility] [id number] [address] [place] [id number] Nov, Schizoaffective disorder, de pressive type F25.1 and BMI 45.0-49.9, adult Z68.42 [facility] [address] [id number] [address] [place] [address] Nov, [facility] [address] [facility] [id number] [address] [place] [address] Nov, [facility] [address] [facility] [id number] [address] [place] [address] Nov, Schizoaffective disorder, de pressive type F25.1 [place] [address] [place] [id number] [address] [place] [address] 16 Nov, 2017 Well woman exam Z01.419 ; BM I 45.0-49.9, adult Z68.42 ; Screening breast examination Z12.31 and Dietary counseling and surveillance Z71.3 [place] [address] [place] [id number] [address] [place] [address] 10 Nov, 2017 Paranoid schizophrenia F20.0 [place] [address] [place] [id number] [address] [place] [address] 09 Nov, 2017 Gastroesophageal reflux dise ase, esophagitis presence not specified K21.9 [place] [address] [place] [id number] [address] [place] [address] Oct, Paranoid schizophrenia F20.0 [id number] [place] [address] Oct, Chronic pain syndrome G89.4 and Schizoaf fective disorder, depressive type F25.1 [place] [address] [place] [id number] [address] [place] [address] Oct, Chronic pain syndrome G89.4 and Schizoaffective disorder, depressive type F25.1 [place] [address] [place] [id number] [address] [place] [id number] 16 Oct, 2017 Type 2 diabetes mellitus wit hout complication, without long-term current use of insulin E11.9 [place] [address] [place] [id number] [address] [place] [address] 12 Oct, 2017 Essential hypertension I10 a nd DM neuro manif type II E11.49 [place] [address] [place] [id number] [address] [place] [address] 11 Oct, 2017 [place] [address] [place] [id number] [address] [place] [id number] Oct, Schizoaffective disorder, de pressive type F25.1 and BMI 45.0-49.9, adult Z68.42 [facility] [address] [facility] [id number] [address] [place] [address] Oct, [facility] [address] [place] [id number] [address] [place] [address] Oct, Paranoid schizophrenia F20.0 [facility] [address] [place] [id number] [address] [place] [address] Oct, 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, without long-term current use of insulin E11.610 ; Essential hypertension I10 ; Hypothyroidism (acquired) E03.9 ; Chronic obstructive pulmonary disease, unspecified COPD type J44.9 and Diabetic polyneuropathy associated with type 2 diabetes mellitus E11.42 [facility] [address] [place] [id number] [address] [place] [id number] Sep, Paranoid schizophrenia F20.0 [facility] [address] [place] [id number] [address] [place] [address] Sep, Paranoid schizophrenia F20.0 and BMI 45.0-49.9, adult Z68.42 [facility] [address] [place] [id number] [place] [address] Sep, Schizoaffective disorder, de pressive type F25.1 [facility] [address] [place] [id number] [address] [place] [id number] Sep, [facility] [address] [place] [id number] [address] [place] [id number] Sep, Paranoid schizophrenia F20.0 [facility] [address] [facility] [id number] [address] [place] [id number] Sep, [facility] [address] [place] [id number] [address] [place] [id number] Sep, Hypothyroidism (acquired) E0 3.9 [facility] [address] [place] [id number] [address] [place] [id number] Sep, [facility] [address] [address] August, Schizoaffective disorder, de pressive type F25.1 [place] [address] [address] August, [facility] [address] [place] [id number] [place] [id number] August, [facility] [address] [id number] August, [place] [address] [address] August, Paranoid schizophrenia F20.0 [place] [address] [place] [id number] [place] [id number] August, History of lupus Z87.39 and Chronic pain syndrome G89.4 [place] [address] [address] August, [facility] [address] [address] August, Seasonal allergic rhinitis, unspecified trigger J30.2 and BMI 45.0-49.9, adult Z68.42 [place] [address] [address] Jul, Schizoaffective disorder, de pressive type F25.1 [facility] [address] [address] Jul, [place] [address] [address] Jul, Hypothyroidism (acquired) E0 3.9 [place] [address] [place] [id number] [place] [id number] Jul, Chronic obstructive pulmonar y disease, unspecified COPD type J44.9 and Type 2 diabetes mellitus without complication, without long-term current use of insulin E11.9 [facility] [address] [facility] [id number] [address] [place] [address] Jul, Paranoid schizophrenia F20.0 [facility] [address] [facility] [id number] [address] [place] [id number] Jun, Hypothyroidism (acquired) E0 3.9 and Seasonal allergic rhinitis due to pollen J30.1 [facility] [address] [facility] [id number] [address] [place] [id number] Jun, Shortness of breath at rest R06.02 ; COPD exacerbation J44.1 and BMI 45.0-49.9, adult Z68.42 [facility] [address] [place] [id number] [place] [phone] Jun, [facility] [address] [place] [id number] [place] [id number] Jun, Paranoid schizophrenia F20.0 ; Depression with anxiety F41.8 and BMI 45.0-49.9, adult Z68.42 [facility] [address] [place] [id number] [address] [place] [id number] Jun, Schizoaffective disorder, de pressive type F25.1 [facility] [address] [facility] [id number] [address] [place] [id number] Jun, Dental caries K02.9 [facility] [address] [place] [id number] [address] [place] [id number] Jun, Paranoid schizophrenia F20.0 [facility] [address] [facility] [id number] [address] [place] [address] May, Migraine without aura and wi thout status migrainosus, not intractable G43.009 ; DM neuro manif type II E11.49 and Type 2 diabetes mellitus without complication, without long-term current use of insulin E11.9 [facility] [address] [facility] [id number] [address] [place] [phone] May, Migraine without aura and wi thout status migrainosus, not intractable G43.009 [facility] [address] [place] [address] May, Depression with anxiety F41. 8 [facility] [address] [place] [id number] [address] [place] [address] [id number] May, [facility] [address] [address] May, [facility] [address] [address] May, [place] [address] [address] May, Hypothyroidism (acquired) E0 3.9 [place] [address] [address] May, Paranoid schizophrenia F20.0 [place] [address] [address] May, Type 2 diabetes mellitus wit hout [...] N32.81 and Controlled substance agreement signed Z79.899 [place] [address] [address] May, Controlled substance agreeme nt signed Z79.899 [place] [address] [address] Apr, [facility] [id number] [place] [address] [id number] Apr, Dental examination Z01.20 [facility] [address] [facility] [id number] [address] [place] [phone] Apr, Paranoid schizophrenia F20.0 [facility] [address] [facility] [id number] [address] [place] [id number] Apr, Hypertension, unspecified ty pe I10 [facility] [address] [facility] [id number] [address] [place] [phone] Apr, Paranoid schizophrenia F20.0 [facility] [address] [facility] [id number] [address] [place] [address] Apr, [facility] [address] [facility] [id number] [address] [place] [phone] Apr, Tobacco abuse Z72.0 [facility] [address] [facility] [id number] [address] [place] [id number] Apr, [facility] [address] [facility] [id number] [address] [place] [address] Mar, [facility] [address] [facility] [id number] [address] [place] [phone] Mar, Paranoid schizophrenia F20.0 and BMI 45.0-49.9, adult Z68.42 [facility] [address] [facility] [id number] [address] [place] [id number] Mar, Schizoaffective disorder, de pressive type F25.1 [facility] [address] [facility] [id number] [address] [place] [id number] Mar, [facility] [address] [facility] [id number] [address] [place] [id number] Mar, Hypothyroidism, unspecified type E03.9 [facility] [address] [facility] [id number] [address] [place] [id number] Mar, Schizoaffective disorder, de pressive type F25.1 [facility] [address] [place] [id number] [address] [place] [phone] Feb, Gastroenteritis K52.9 and BM I 45.0-49.9, adult Z68.42 [facility] [address] [address] Feb, [facility] [address] [address] Feb, [place] [address] [address] Feb, [place] [address] [address] Feb, [place] [address] [address] Feb, Paranoid schizophrenia F20.[address] [address] Feb, Gastroesophageal reflux dise ase without esophagitis K21.9 ; Other seasonal allergic rhinitis J30.2 ; Other allergic rhinitis J30.89 ; Tobacco abuse Z72.0 and BMI 40.0-44.9, adult Z68.[address] [address] Feb, Onychomycosis B35.1 ; Callus of foot L84 and DM neuro manif type II E11.49 [place] [address] [address] Jan, Chronic allergic rhinitis J3 0.[address] [address] Jan, [address] [address] Jan, Schizoaffective disorder, de pressive type F25.1 [place] [address] [address] 10 Jan, 2017 [facility] [address] [facility] [id number] [address] [place] [id number] 07 Jan, 2017 Sore throat J02.9 and Season al allergic rhinitis due to other allergic trigger J30.89 [facility] [address] [facility] [id number] [address] [place] [id number] 04 Jan, 2017 [facility] [address] [place] [id number] [place] [id number] 04 Jan, 2017 [facility] [address] [facility] [id number] [address] [place] [phone] Jan, Chronic allergic rhinitis J3 0.9 [place] [address] [place] [id number] [place] [address] 27 Dec, 2016 Paranoid schizophrenia F20.0 ; Primary insomnia F51.01 and Schizoaffective disorder, depressive type F25.1 [place] [id number] [address] Dec, Chronic pain syndrome G89.4 ; Cervicalgia of ntxqbesf-yxfjgwh-lurbg region M54.2 ; Menopausal syndrome (hot flashes) N95.1 and Encounter for immunization Z23 [facility] [address] [place] [id number] [place] [address] 14 Dec, 2016 [facility] [address] [address] 13 Dec, 2016 [facility] [address] [place] [id number] [place] [id number] 08 Dec, 2016 Paranoid schizophrenia F20.0 [facility] [address] [place] [id number] [place] [address] Dec, Schizoaffective disorder, de pressive type F25.1 [facility] [address] [place] [id number] [address] [place] [phone] Nov, Hypothyroidism, unspecified type E03.9 [facility] [address] [place] [address] [place] [address] Nov, Acute seasonal allergic rhin itis due to other allergen J30.89 [facility] [address] [facility] [id number] [address] [place] [address] Nov, [facility] [address] [facility] [id number] [address] [place] [address] Nov, Hypothyroidism, unspecified type E03.9 and Other elevated white blood cell (WBC) count D72.828 [place] [address] [facility] [id number] [address] [place] [phone] Nov, Schizoaffective disorder, de pressive type F25.1 [place] [address] [place] [id number] [address] [place] [phone] Nov, Paranoid schizophrenia F20.0 [place] [address] [place] [id number] [address] [place] [id number] Nov, Type 2 diabetes mellitus wit hout complication, without long-term current use of insulin E11.9 ; Morbid obesity due to excess calories E66.01 and Chronic pain syndrome G89.4 [place] [address] [place] [id number] [address] [place] [id number] Oct, Paranoid schizophrenia F20.0 [place] [address] [facility] [id number] [address] [place] [address] Oct, [place] [address] [place] [id number] [address] [place] [address] Oct, Schizoaffective disorder, de pressive type F25.1 [facility] [address] [facility] [id number] [address] [place] [address] Oct, Hypothyroidism, unspecified type E03.9 and Other elevated white blood cell (WBC) count D72.828 [facility] [address] [facility] [id number] [address] [place] [address] Oct, Morbid obesity due to excess calories E66.01 ; Chronic obstructive pulmonary disease, unspecified COPD type J44.9 ; History of lupus Z87.39 ; Hypothyroidism, unspecified type E03.9 ; Gastroesophageal reflux disease without esophagitis K21.9 ; Primary insomnia F51.01 and Chronic pain syndrome G89.4 [facility] [address] [facility] [id number] [address] [place] [phone] Sep, [facility] [address] [facility] [id number] [address] [place] [id number] Sep, [facility] [address] [facility] [id number] [address] [place] [phone] Sep, [facility] [address] [facility] [id number] [address] [place] [address] Sep, Paranoid schizophrenia F20.0 [facility] [address] [facility] [id number] [address] [place] [id number] Sep, [facility] [address] [facility] [id number] [address] [place] [id number] Sep, Paranoid schizophrenia F20.0 [facility] [address] [facility] [id number] [address] [place] [id number] Sep, [facility] [address] [facility] [id number] [address] [place] [phone] August, Paranoid schizophrenia F20.0 [facility] [address] [facility] [id number] [address] [place] [phone] Jul, [facility] [address] [facility] [id number] [address] [place] [address] Jul, Type 2 diabetes mellitus wit hout complication, without long-term current use of insulin E11.9 ; Morbid obesity due to excess calories E66.01 ; Depression with anxiety F41.8 ; Hypothyroidism, unspecified type E03.9 ; Seasonal allergic rhinitis due to other allergic trigger J30.89 ; Pain, dental K08.89 and Gastroesophageal reflux disease without esophagitis K21.9 [facility] [address] [id number] [address] [place] [id number] Jul, Dental examination Z01.20 [place] [address] [address] 07 Jul, 2016 Paranoid schizophrenia F20.0 [place] [address] [address] 13 Jun, 2016 Paranoid schizophrenia F20.0 and Depression with anxiety F41.8 [place] [address] [address] 10 Jun, 2016 Paranoid schizophrenia F20.0 and Depression with anxiety F41.8 [place] [address] [address] 09 Jun, 2016 [place] [address] [address] Jun, [facility] [place] [address] [address] Jun, Seasonal allergic rhinitis d ue to other allergic trigger J30.89 [facility] [address] [address] May, Sore throat J02.9 ; Other vi ral agents as the cause of diseases classified elsewhere B97.89 and Acute upper respiratory infection, unspecified J06.[address] [address] 08 May, 2016 Paranoid schizophrenia F20.0 and Depression with anxiety F41.8 [place] [address] [address] Apr, Other seasonal allergic rhin itis J30.2 [place] [address] [address] Apr, Paranoid schizophrenia F20.0 and Depression with anxiety F41.8 [facility] [place] [address] [place] [id number] [place] [address] Apr, Bronchitis J40 and Sore thro at J02.9 [facility] [address] [facility] [id number] [address] [place] [address] Apr, Type 2 diabetes mellitus wit hout complication, without long-term current use of insulin E11.9 [facility] [address] [facility] [id number] [address] [place] [address] Apr, Bronchitis J40 [facility] [address] [place] [id number] [address] [place] [phone] Apr, [facility] [address] [facility] [id number] [address] [place] [id number] Apr, [facility] [address] [address] Mar, Type 2 diabetes mellitus wit hout [...] R60.9 and Other seasonal allergic rhinitis J30.2 [facility] [address] [place] [id number] [address] [place] [address] Mar, Paranoid schizophrenia F20.0 and Depression with anxiety F41.8 [facility] [address] [place] [id number] [address] [place] [address] Feb, [facility] [address] [place] [id number] [address] [place] [address] Feb, [place] [address] [place] [id number] [place] [address] Feb, [place] [address] [place] [id number] [address] [place] [address] Feb, [facility] [address] [address] 14 Feb, 2016 Type 2 diabetes mellitus wit hout complication, without long-term current use of insulin E11.9 ; ARIAS on CPAP G47.33 and Preoperative evaluation to rule out surgical contraindication Z01.818 [facility] [address] [id number] [address] [place] [address] 09 Feb, 2016 Paranoid schizophrenia F20.0 and Depression with anxiety F41.8 [facility] [address] [id number] [address] [place] [id number] 18 Jan, 2016 [facility] [address] [id number] [address] [place] [address] 18 Jan, 2016 Paranoid schizophrenia F20.0 and Depression with anxiety F41.8 [facility] [address] [id number] [address] [place] [id number] 17 Jan, 2016 [facility] [address] [id number] [address] [place] [id number] 14 Jan, 2016 Muscle strain T14.8 [facility] [address] [id number] [address] [place] [id number] 10 Jan, 2016 Paranoid schizophrenia F20.0 [facility] [address] [id number] [address] [place] [id number] 07 Jan, 2016 [facility] [address] [id number] [address] [place] [address] 05 Jan, 2016 Paranoid schizophrenia F20.0 and Depression with anxiety F41.8 [facility] [address] [id number] [address] [place] [id number] 05 Jan, 2016 [facility] [address] [id number] [address] [place] [phone] Jan, [facility] [address] [id number] [address] [place] [id number] 28 Dec, 2015 [facility] [address] [id number] [address] [place] [id number] 23 Dec, 2015 Paranoid schizophrenia F20.0 [facility] [address] [id number] [address] [place] [id number] 16 Dec, 2015 Paranoid schizophrenia F20.0 and Depression with anxiety F41.8 [facility] [address] [id number] [address] [place] [address] Nov, [facility] [address] [id number] [address] [place] [id number] Nov, Paranoid schizophrenia F20.0 [facility] [address] [id number] [address] [place] [phone] Nov, Paranoid schizophrenia F20.0 and Depression with anxiety F41.8 [facility] [address] [id number] [address] [place] [address] 05 Nov, 2015 Type 2 diabetes mellitus wit hout complication, without long-term current use of insulin E11.9 ; Paranoid schizophrenia F20.0 ; Chronic obstructive pulmonary disease, unspecified COPD type J44.9 ; Morbid obesity due to excess calories E66.01 and Parkinsonian tremor G20 [facility] [address] [id number] [address] [place] [phone] Nov, [facility] [address] [id number] [address] [place] [id number] Oct, Paranoid schizophrenia F20.0 [facility] [address] [id number] [address] [place] [id number] Oct, Paranoid schizophrenia F20.0 [facility] [address] [id number] [address] [place] [phone] Oct, Paranoid schizophrenia F20.0 and Depression with anxiety F41.8 [facility] [address] [id number] [address] [place] [id number] Oct, [facility] [address] [id number] [address] [place] [id number] Oct, Paranoid schizophrenia F20.0 and Depression with anxiety F41.8 [facility] [address] [address] Oct, Nasal sore J34.89 [place] [address] [address] Oct, Type 2 diabetes mellitus wit hout complication, without long-term current use of insulin E11.9 ; Depression with anxiety F41.8 ; Hypothyroidism, unspecified type E03.9 and History of lupus Z87.39 [place] [address] [address] Oct, [place] [address] [address] Oct, Type 2 diabetes mellitus wit hout [...] edema R60.9 and History of lupus Z87.39 [place] [address] [address] Feb, [place] [address] [address] Jan, [place] [address] [address] Jan, [place] [address] [address] Jan, [place] [address] [address] Dec, [place] [address] [address] Nov, [facility] [address] [id number] [address] [place] [address], [place] [address] Nov, [facility] [address] [id number] [address] [place] [address], [place] [address] Oct, [facility] [address] [id number] [address] [place] [address], [place] [address] Oct, [facility] [address] [id number] [address] [place] [address], [place] [address] Oct, [facility] [address] [id number] [address] [place] [address], [place] [address] Sep, Allergic rhinitis 477.9 [facility] [address] [id number] [address] [place] [address] Sep, Rhinitis, allergic 477.9 [facility] [address] [id number] [address] [place] [id number] Sep, Rhinitis, allergic 477.9 [facility] [address] [id number] [address] [place] [address], [place] [address] Sep, [facility] [address] [id number] [address] [place] [address], [place] [address] August, [facility] [address] [id number] [address] [place] [phone] August, [facility] [address] [id number] [address] [place] [address], [place] [address] August, [facility] [address] [id number] [address] [place] [id number] 28 Jul, 2014 [facility] [address] [id number] [address] [place] [address], [place] [address] 14 Jul, 2014 [facility] [address] [id number] [address] [place] [address], [place] [id number] 13 Jul, 2014 [facility] [address] [id number] [address] [place] [id number] 16 Jun, 2014 [facility] [address] [id number] [address] [place] [address], [place] [address] 16 Jun, 2014 [facility] [address] [id number] [address] [place] [address], [place] [address] Jun, [facility] [address] [id number] [address] [place] [address], [place] [address] Jun, [facility] [address] [id number] [address] [place] [address], [place] [address] Jun, [facility] [address] [id number] [address] [place] [address], [place] [address] 11 Jun, 2014 [facility] [address] [id number] [address] [place] [address], [place] [address] Jun, [facility] [address] [id number] [address] [place] [address], [place] [address] Jun, [facility] [address] [id number] [address] [place] [address], [place] [address] May, [facility] [address] [id number] [address] [place] [address], [place] [address] May, [facility] [address] [id number] [address] [place] [address], [place] [address] May, [facility] [address] [id number] [address] [place] [address], [place] [address] May, [facility] [address] [id number] [address] [place] [address], [place] [address] Apr, [facility] [address] [id number] [address] [place] [address], [place] [address] Mar, [facility] [address] [id number] [address] [place] [address], [place] [address] Mar, [facility] [address] [id number] [address] [place] [address], [place] [address] Mar, [facility] [address] [id number] [address] [place] [address], [place] [address] Mar, [facility] [address] [id number] [address] [place] [address], [place] [address] Mar, [facility] [address] [id number] [address] [place] [address], [place] [address] Mar, [facility] [address] [id number] [address] [place] [address], [place] [address] Mar, [facility] [address] [id number] [address] [place] [address], [place] [address] Mar, [facility] [address] [id number] [address] [place] [address], [place] [address] Mar, [facility] [address] [id number] [address] [place] [address], [place] [address] Feb, [facility] [address] [id number] [address] [place] [address], [place] [address] Feb, [facility] [address] [id number] [address] [place] [address], [place] [address] Feb, [facility] [address] [id number] [address] [place] [address], [place] [address] Feb, [facility] [address] [id number] [address] [place] [place] [address], [place] [address] Feb, [facility] [address] [id number] [address] [place] [address], [place] [address] Feb, [facility] [address] [id number] [address] [place] [address], [place] [address] Feb, [facility] [address] [id number] [address] [place] [address], [place] [address] Feb, [facility] [address] [id number] [address] [place] [address], [place] [address] Jan, [facility] [address] [id number] [address] [place] [address], [place] [address] Jan, [facility] [address] [id number] [address] [place] [address], [place] [address] 16 Jan, 2014 [facility] [address] [id number] [address] [place] [address], [place] [address] 16 Jan, 2014 [facility] [address] [id number] [address] [place] [address], [place] [address] 15 Jan, 2014 [facility] [address] [id number] [address] [place] [address], [place] [address] 15 Jan, 2014 [facility] [address] [id number] [address] [place] [address], [place] [address] 14 Jan, 2014 [facility] [address] [id number] [address] [place] [address], [place] [address] 14 Jan, 2014 [facility] [address] [id number] [address] [place] [address], [place] [address] 14 Jan, 2014 [facility] [address] [id number] [address] [place] [address], [place] [address] 14 Jan, 2014 [facility] [address] [id number] [address] [place] [address], [place] [address] 18 Dec, 2013 [facility] [address] [id number] [address] [place] [address], [place] [address] 18 Dec, 2013 [facility] [address] [id number] [address] [place] [address], [place] [address] 10 Dec, 2013 [facility] [address] [id number] [address] [place] [address], [place] [address] 10 Dec, 2013 [facility] [address] [id number] [address] [place] [address], [place] [address] Nov, [facility] [address] [id number] [address] [place] [address], [place] [address] Nov, [facility] [address] [id number] [address] [place] [address], [place] [address] Nov, [facility] [address] [id number] [address] [place] [address], [place] [address] Nov, [facility] [address] [id number] [facility] [address] Nov, [facility] [address] [id number] [address] [place] [address], [place] [address] Oct, [facility] [address] [id number] [address] [place] [address], [place] [address] Oct, [facility] [address] [id number] [address] [place] [address], [place] [address] Oct, [facility] [address] [id number] [address] [place] [address], [place] [address] Oct, [facility] [address] [id number] [address] [place] [address], [place] [address] Sep, [facility] [address] [id number] [address] [place] [address], [place] [address] Sep, [facility] [address] [id number] [address] [place] [address], [place] [address] Sep, [facility] [address] [id number] [address] [place] [address], [place] [address] Sep, [facility] [address] [id number] [address] [place] [address], [place] [address] Sep, [facility] [address] [id number] [address] [place] [address], [place] [address] Sep, [facility] [address] [id number] [address] [place] [address], [place] [address] Sep, [facility] [address] [id number] [address] [place] [address], [place] [address] Sep, [facility] [address] [id number] [address] [place] [address], [place] [address] August, [facility] [address] [id number] [address] [place] [address], [place] [address] August, [facility] [address] [id number] [facility] [place] [address] August, [facility] [address] [id number] [address] [place] [address], [place] [address] August, [facility] [address] [id number] [address] [place] [address], [place] [address] August, [facility] [address] [id number] [address] [place] [address], [place] [address] August, [facility] [address] [id number] [address] [place] [address], [place] [address] August, [facility] [address] [id number] [address] [place] [address], [place] [address] Jul, [facility] [address] [id number] [address] [place] [address], [place] [address] Jul, [facility] [address] [id number] [address] [place] [address], [place] [address] Jul, [facility] [address] [id number] [address] [place] [address], [place] [address] Jul, [facility] [address] [id number] [address] [place] [address], [place] [address] Jul, [facility] [address] [id number] [address] [place] [address], [place] [address] Jul, [facility] [address] [id number] [address] [place] [address], [place] [address] Jul, [facility] [address] [id number] [address] [place] [address], [place] [address] Jul, [facility] [address] [id number] [address] [place] [address], [place] [address] Jul, [facility] [address] [id number] [address] [place] [address], [place] [address] Jul, [facility] [address] [id number] [address] [place] [address], [place] [address] Jul, [facility] [address] [id number] [address] [place] [address], [place] [address] Jul, [facility] [address] [id number] [address] [place] [address], [place] [address] Jun, [facility] [address] [id number] [address] [place] [address], [place] [address] Jun, [facility] [address] [id number] [address] [place] [address], [place] [address] Jun, [facility] [address] [id number] [address] [place] [address], [place] [address] Jun, [facility] [address] [id number] [address] [place] [address], [place] [address] Jun, [facility] [address] [id number] [address] [place] [address], [place] [address] May, [facility] [address] [id number] [address] [place] [address], [place] [address] May, [facility] [address] [id number] [address] [place] [address], [place] [address] May, [facility] [address] [id number] [address] [place] [address], [place] [address] May, [facility] [address] [id number] [address] [place] [address], [place] [address] May, [facility] [address] [id number] [address] [place] [address], [place] [address] May, [facility] [address] [id number] [address] [place] [address], [place] [address] May, [facility] [address] [id number] [address] [place] [address], [place] [address] May, [facility] [address] [id number] [address] [place] [address], [place] [address] Mar, [facility] [address] [id number] [address] [place] [address], [place] [address] Mar, [facility] [address] [id number] [address] [place] [address], [place] [address] Mar, [facility] [address] [id number] [address] [place] [address], [place] [address] Mar, [facility] [address] [id number] [address] [place] [address], [place] [address] Mar, [facility] [address] [id number] [address] [place] [address], [place] [address] Mar, [facility] [address] [id number] [address] [place] [address], [place] [address] Feb, [facility] [address] [id number] [address] [place] [address], [place] [address] Feb, [facility] [address] [id number] [address] [place] [address], [place] [address] Jan, [facility] [address] [id number] [address] [place] [address], [place] [address] Jan, [facility] [address] [id number] [address] [place] [address], [place] [address] Jan, [facility] [address] [id number] [address] [place] [address], [place] [address] Jan, [facility] [address] [id number] [address] [place] [address], [place] [address] Jan, [facility] [address] [id number] [address] [place] [address] Jan, [facility] [address] [id number] [address] [place] [address], [place] [address] Jan, [facility] [address] [id number] [address] [place] [address], [place] [address] Jan, [facility] [address] [id number] [address] [place] [address] Jan, [facility] [address] [id number] [address] [place] [address], [place] [address] Jan, [facility] [address] [id number] [address] [place] [address], [place] [address] Dec, [facility] [address] [id number] [address] [place] [address], [place] [address] Nov, [facility] [address] [id number] [address] [place] [address], [place] [address] Nov, [facility] [address] [id number] [address] [place] [address], [place] [address] Nov, [facility] [address] [id number] [address] [place] [address], [place] [address] Oct, [facility] [address] [id number] [address] [place] [address], [place] [address] Oct, [facility] [address] [id number] [address] [place] [address], [place] [address] August, [facility] [address] [id number] [address] [place] [address], [place] [address] Apr, [facility] [address] [id number] [address] [place] [address], [place] [address] Apr, [facility] [address] [id number] [address] [place] [address], [place] [address] Feb, [facility] [address] [id number] [address] [place] [address], [place] [address] Feb, [facility] [address] [id number] [address] [place] [address], [place] [address] Dec, [facility] [address] [id number] [address] [place] [address], [place] [address] Dec, [facility] [address] [id number] [address] [place] [address], [place] [address] Oct, [facility] [address] [id number] [address] [place] [id number] Oct, [facility] [address] [facility] [id number] [address] [place] [address] Oct, [facility] [address] [facility] [id number] [address] [place] [id number] Jul, IMMUNIZATIONS No Known Immunizations SOCIAL HISTORY [...]
--- OUTSIDE RECORDS SUMMARY | 2019-07-07 04:16 | XMS REPORT ---
Author Author Alayna MONTERROSO Organization [facility] Address [address] [place] [address] Care Team Providers Care Remote Encoding Operations Supervisor Name Role Phone PADMINI MONTERROSO Unavailable PROBLEMS Type Condition ICD9-CM Code VHM42-UD Code Onset Dates Condition S tatus SNOMED Code Problem Depression with anxiety F41.8 Active 422107765 Problem Morbid obesity due to excess calories E66.01 Active 633313553 Problem Chronic obstructive pulmonary disease, unspecified COPD ty pe J44.9 Active 49200320 Problem Paranoid schizophrenia F20.0 Active 57316034 Problem Chronic pain syndrome G89.4 Active 495364528 Problem History of lupus Z87.39 Active 312 809314 Problem Type 2 diabetes mellitus wit hout complication, without long-term current use of insulin E11.9 Active 298608188 Problem Dyslipidemia E78.5 Active 6736698 07 Problem Migraine without aura and without status migrain osus, not intractable G43.009 Active 796675529 Problem Primary insomnia F51.01 Active 397 2004 Problem Schizoaffective disorder, depressive type F25.1 Active 14713677 Problem Menopausal syndrome (hot flashes) N95.1 Active 540030319 Problem DM neuro manif type II E11.49 Active 67410311 Problem Other seasonal allergic rhinitis J30.2 Active 523064210 Problem Other allergic rhinitis J30.89 Active 590354731 Problem Gastroesophageal reflux disease, esophagitis pre sence not specified K21.9 Active 476948614 Problem Tobacco abuse Z72.0 Active 987654 000 Problem Essential hypertension I10 Active 21724098 Problem Hypothyroidism (acquired) E03.9 Acti ve 813549574 Problem COPD exacerbation J44.1 Active 19 7757960 Problem Allergic rhinitis, unspecified seasonality, unspecifie d trigger J30.9 Active 39686717 Problem Gastroesophageal reflux disease without esophagitis K21.9 Active 489532337 Problem Constipation by delayed colonic transit K59.01 Active 51667781 Problem OAB (overactive bladder) N32.81 Activ e 405703094 Problem Seasonal allergic rhinitis due to other allergic trigger J30.89 Active 895571668 Problem Seasonal allergic rhinitis due to pollen J30.1 Active 43812037 Problem 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, without long-term current use of insulin E11.610 Active 991517127 Problem Diabetic polyneuropathy associated with type 2 d iabetes mellitus E11.42 Active 407164720 Problem Cigarette nicotine dependence without complication F17.210 Active 99811112 ALLERGIES No Information ENCOUNTERS Encounter Location Date Diagnosis [facility] [address] [id number] [address] [place] [address] Dec, [facility] [address] [id number] [address] [place] [phone] Dec, [facility] [address] [facility] [id number] [address] [place] [address] Nov, Paranoid schizophrenia F20.0 [facility] [address] [facility] [id number] [address] [place] [address] Nov, [facility] [address] [facility] [id number] [address] [place] [address] Nov, [facility] [address] [facility] [id number] [address] [place] [phone] Nov, [facility] [address] [facility] [id number] [address] [place] [address] Nov, Encounter for comprehensive diabetic foot examination, type 2 diabetes mellitus E11.9 and Morbid obesity E66.01 [facility] [address] [id number] [address] [place] [address] Nov, [facility] [address] [facility] [id number] [address] [place] [address] Nov, [facility] [address] [facility] [id number] [address] [place] [phone] Nov, [facility] [address] [facility] [id number] [address] [place] [address] Nov, Schizoaffective disorder, de pressive type F25.1 [facility] [address] [facility] [id number] [address] [place] [address] Nov, Constipation by delayed colo james transit K59.01 [facility] [address] [facility] [id number] [address] [place] [phone] Oct, [facility] [address] [facility] [id number] [address] [place] [address] Oct, [facility] [address] [facility] [id number] [address] [place] [id number] Oct, [facility] [address] [facility] [id number] [address] [place] [id number] Oct, Chronic obstructive pulmonar y disease, unspecified COPD type J44.9 [facility] [address] [facility] [id number] [address] [place] [phone] Oct, [facility] [address] [facility] [id number] [address] [place] [address] Sep, Paranoid schizophrenia F20.0 [facility] [address] [facility] [id number] [address] [place] [address] Sep, [facility] [address] [facility] [id number] [address] [place] [phone] Sep, [facility] [address] [place] [id number] [address] [place] [address] Sep, Encounter for immunization Z 23 [facility] [address] [facility] [id number] [address] [place] [address] Sep, [facility] [address] [place] [id number] [address] [place] [phone] Sep, Closed fracture of right ank le, sequela S82.891S ; Morbid obesity E66.01 and Heat rash L74.0 [facility] [address] [facility] [id number] [address] [place] [address] Sep, Schizoaffective disorder, de pressive type F25.1 [facility] [address] [id number] [address] [place] [id number] 18 Sep, 2018 [facility] [address] [id number] [address] [place] [address] Sep, [facility] [address] [id number] [address] [place] [address] 14 Sep, 2018 [facility] [address] [id number] [address] [place] [id number] 13 Sep, 2018 [facility] [address] [id number] [address] [place] [phone] Sep, [facility] [address] [id number] [address] [place] [phone] Sep, [facility] [address] [id number] [address] [place] [address] Sep, [facility] [address] [id number] [address] [place] [address] Sep, [facility] [address] [id number] [address] [place] [address] Sep, [facility] [address] [id number] [address] [place] [address] August, Paranoid schizophrenia F20.0 [facility] [address] [id number] [address] [place] [address] August, [facility] [address] [id number] [address] [place] [address] August, [facility] [address] [id number] [address] [place] [address] August, [facility] [address] [facility] [id number] [address] [place] [address] August, Type 2 diabetes mellitus wit hout complication, without long-term current use of insulin E11.9 ; Closed fracture of right ankle, initial encounter S82.891A ; Constipation by delayed colonic transit K59.01 ; Osteoporosis with pathological fracture, initial encounter M80.00XA ; Encounter for immunization Z23 and Morbid obesity E66.01 [facility] [address] [facility] [id number] [address] [place] [address] August, [facility] [address] [facility] [id number] [address] [place] [address] August, [facility] [address] [facility] [id number] [address] [place] [address] August, Acquired deformity of muscul oskeletal system, unspecified M95.9 [facility] [address] [facility] [id number] [address] [place] [address] August, Paranoid schizophrenia F20.0 [facility] [address] [facility] [email or web address]][id number] [address] [address] August, [facility] [address] [facility] [id number] [address] [place] [address] Jul, [facility] [address] [place] [id number] [address] [place] [address] Jul, Diabetic polyneuropathy asso ciated with type 2 diabetes mellitus E11.42 ; Paranoid schizophrenia F20.0 ; Preoperative clearance Z01.818 and Morbid obesity E66.01 [facility] [address] [facility] [id number] [address] [place] [address] Jul, Paranoid schizophrenia F20.0 [facility] [address] [facility] [id number] [address] [place] [address] Jul, [facility] [address] [facility] [id number] [address] [place] [address] Jul, [facility] [address] [place] [id number] [address] [place] [address] Jul, Cigarette nicotine dependenc e without complication F17.210 [facility] [address] [place] [id number] [address] [place] [address] Jul, Type 2 diabetes mellitus wit hout complication, without long-term current use of insulin E11.9 and Hypothyroidism (acquired) E03.9 [place] [address] [facility] [id number] [address] [place] [address] Jul, Encounter for Medicare laureen wellness exam Z00.00 ; Morbid obesity due to excess calories E66.01 ; Diabetic polyneuropathy associated with type 2 diabetes mellitus E11.42 ; Chronic obstructive pulmonary disease, unspecified COPD type J44.9 ; Schizoaffective disorder, depressive type F25.1 ; Hypothyroidism (acquired) E03.9 and Morbid obesity E66.01 [place] [address] [facility] [id number] [address] [place] [address] Jun, Gastroesophageal reflux dise ase without esophagitis K21.9 [place] [address] [facility] [id number] [address] [place] [address] Jun, Paranoid schizophrenia F20.0 [place] [address] [facility] [id number] [address] [place] [address] Jun, Schizoaffective disorder, de pressive type F25.1 [place] [address] [facility] [id number] [address] [place] [address] Jun, [place] [address] [facility] [id number] [address] [place] [address] Jun, Schizoaffective disorder, de pressive type F25.1 [place] [address] [facility] [id number] [address] [place] [address] Jun, Cigarette nicotine dependenc e without complication F17.210 [place] [address] [id number] [address] [place] [address] 18 Jun, 2018 Type 2 diabetes mellitus wit hout complication, without long-term current use of insulin E11.9 [place] [id number] [facility] [id number] [address] [place] [id number] 15 Jun, 2018 [place] [address] [facility] [id number] [address] [place] [address] Jun, [facility] [address] [address] Jun, [facility] [address] [address] Jun, [facility] [address] [address] Jun, [facility] [address] [address] Jun, Paranoid schizophrenia F20.0 ; Type 2 diabetes mellitus without complication, without long-term current use of insulin E11.9 ; Hypothyroidism (acquired) E03.9 and Morbid obesity E66.01 [place] [address] [address] 28 May, 2018 Paranoid schizophrenia F20.0 [place] [address] [address] 20 May, 2018 Hypothyroidism (acquired) E0 3.9 and Dyslipidemia E78.5 [place] [address] [address] 19 May, 2018 Cigarette nicotine dependenc e without complication F17.210 [place] [address] [address] 18 May, 2018 [facility] [address] [id number] 14 May, 2018 Type 2 diabetes mellitus wit hout complication, without long-term current use of insulin E11.9 ; Essential hypertension I10 ; Hypothyroidism (acquired) E03.9 and Dyslipidemia E78.5 [place] [address] [address] 13 May, 2018 [place] [address] [address] 08 May, 2018 Schizoaffective disorder, de pressive type F25.1 [place] [address] [address] 08 May, 2018 Paranoid schizophrenia F20.0 [place] [address] [address] 07 May, 2018 [facility] [address] [place] [address] 07 May, 20 19 [place] [address] [address] May, [place] [address] [address] May, Type 2 diabetes mellitus wit hout complication, without long-term current use of insulin E11.9 ; Essential hypertension I10 ; Hypothyroidism (acquired) E03.9 and Dyslipidemia E78.5 [place] [address] [address] May, [place] [address] [address] May, Acute nasopharyngitis J00 [facility] [address] [address] May, Allergic rhinitis, unspecifi ed seasonality, unspecified trigger J30.9 [place] [address] [address] May, [facility] [address] [address] Apr, Schizoaffective disorder, de pressive type F25.1 [place] [address] [address] Apr, [facility] [address] [address] Apr, Cigarette nicotine dependenc e without complication F17.210 [place] [address] [address] Apr, [facility] [address] [facility] [id number] [address] [place] [address] Apr, Cigarette nicotine dependenc e without complication F17.210 [facility] [address] [facility] [id number] [address] [place] [address] Apr, [facility] [address] [facility] [id number] [address] [place] [address] Apr, Migraine without aura and wi thout status migrainosus, not intractable G43.009 [facility] [address] [facility] [id number] [address] [place] [address] Apr, Migraine without aura and wi thout status migrainosus, not intractable G43.009 [facility] [address] [facility] [id number] [address] [place] [address] Mar, Schizoaffective disorder, de pressive type F25.1 ; BMI 45.0-49.9, adult Z68.42 and BMI 40.0-44.9, adult Z68.41 [facility] [address] [facility] [id number] [address] [place] [address] Mar, Primary insomnia F51.01 [facility] [address] [place] [id number] [address] [place] [address] Mar, [facility] [address] [place] [id number] [address] [place] [address] Feb, Primary insomnia F51.01 [facility] [address] [facility] [id number] [address] [place] [address] Feb, [facility] [address] [place] [id number] [address] [place] [address] Jan, Schizoaffective disorder, de pressive type F25.1 and BMI 45.0-49.9, adult Z68.42 [facility] [address] [facility] [id number] [address] [place] [address] Jan, [place] [address] [place] [id number] [address] [place] [address] 16 Jan, 2018 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, without long-term current use of insulin E11.610 ; Menopausal syndrome (hot flashes) N95.1 and BMI 40.0-44.9, adult Z68.41 [place] [address] [place] [id number] [place] [address] 11 Jan, 2018 Paranoid schizophrenia F20.0 [place] [address] [place] [id number] [place] [address] Jan, [place] [address] [place] [id number] [place] [address] 04 Jan, 2018 Schizoaffective disorder, de pressive type F25.1 [place] [address] [address] Jan, [place] [address] [place] [id number] [place] [address] Jan, Chronic obstructive pulmonar y disease, unspecified COPD type J44.9 ; BMI 45.0-49.9, adult Z68.42 ; Type 2 diabetes mellitus without complication, without long-term current use of insulin E11.9 ; Hypothyroidism (acquired) E03.9 ; Encounter for immunization Z23 ; Gastroesophageal reflux disease without esophagitis K21.9 ; Primary insomnia F51.01 and Acute nasopharyngitis J00 [place] [address] [place] [id number] [place] [address] Dec, [place] [address] [place] [id number] [place] [address] 21 Dec, 2017 Schizoaffective disorder, de pressive type F25.1 and BMI 45.0-49.9, adult Z68.42 [place] [address] [place] [id number] [place] [address] Dec, [place] [address] [place] [id number] [place] [phone] 18 Dec, 2017 [facility] [address] [facility] [id number] [address] [place] [address] 18 Dec, 2017 Acute non-recurrent frontal sinusitis J01.10 [facility] [address] [id number] [address] [place] [address] 18 Dec, 2017 Acute non-recurrent frontal sinusitis J01.10 ; Weakness of left leg R29.898 ; At high risk for falls Z91.81 and BMI 45.0-49.9, adult Z68.42 [facility] [address] [id number] [address] [place] [address] Dec, [facility] [address] [id number] [address] [place] [phone] Dec, [facility] [address] [facility] [id number] [address] [place] [phone] Dec, Schizoaffective disorder, de pressive type F25.1 [facility] [address] [id number] [address] [place] [phone] Dec, Acute nasopharyngitis J00 [facility] [address] [id number] [address] [place] [phone] 05 Dec, 2017 Schizoaffective disorder, de pressive type F25.1 [facility] [address] [id number] [address] [place] [address] Dec, [facility] [address] [facility] [id number] [address] [place] [address] Nov, Schizoaffective disorder, de pressive type F25.1 and BMI 45.0-49.9, adult Z68.42 [facility] [address] [id number] [address] [place] [address] Nov, [facility] [address] [facility] [id number] [address] [place] [address] Nov, [facility] [address] [facility] [id number] [address] [place] [address] Nov, Schizoaffective disorder, de pressive type F25.1 [place] [address] [place] [id number] [address] [place] [address] 16 Nov, 2017 Well woman exam Z01.419 ; BM I 45.0-49.9, adult Z68.42 ; Screening breast examination Z12.31 and Dietary counseling and surveillance Z71.3 [place] [address] [place] [id number] [address] [place] [address] 10 Nov, 2017 Paranoid schizophrenia F20.0 [place] [address] [place] [id number] [address] [place] [id number] 09 Nov, 2017 Gastroesophageal reflux dise ase, esophagitis presence not specified K21.9 [place] [address] [place] [id number] [address] [place] [address] Oct, Paranoid schizophrenia F20.0 [id number] [place] [address] Oct, Chronic pain syndrome G89.4 and Schizoaf fective disorder, depressive type F25.1 [place] [address] [place] [id number] [address] [place] [address] Oct, Chronic pain syndrome G89.4 and Schizoaffective disorder, depressive type F25.1 [place] [address] [place] [id number] [address] [place] [id number] 16 Oct, 2017 Type 2 diabetes mellitus wit hout complication, without long-term current use of insulin E11.9 [place] [address] [place] [id number] [address] [place] [phone] 12 Oct, 2017 Essential hypertension I10 a nd DM neuro manif type II E11.49 [place] [address] [place] [id number] [address] [place] [address] 11 Oct, 2017 [place] [address] [place] [id number] [address] [place] [address] Oct, Schizoaffective disorder, de pressive type F25.1 and BMI 45.0-49.9, adult Z68.42 [facility] [address] [facility] [id number] [address] [place] [id number] Oct, [facility] [address] [facility] [id number] [address] [place] [address] Oct, Paranoid schizophrenia F20.0 [facility] [address] [facility] [id number] [address] [place] [address] Oct, 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, without long-term current use of insulin E11.610 ; Essential hypertension I10 ; Hypothyroidism (acquired) E03.9 ; Chronic obstructive pulmonary disease, unspecified COPD type J44.9 and Diabetic polyneuropathy associated with type 2 diabetes mellitus E11.42 [facility] [address] [facility] [id number] [address] [place] [id number] Sep, Paranoid schizophrenia F20.0 [facility] [address] [facility] [id number] [address] [place] [address] Sep, Paranoid schizophrenia F20.0 and BMI 45.0-49.9, adult Z68.42 [facility] [address] [place] [id number] [address] [place] [address] Sep, Schizoaffective disorder, de pressive type F25.1 [facility] [address] [place] [id number] [address] [place] [id number] Sep, [facility] [address] [place] [id number] [address] [place] [id number] Sep, Paranoid schizophrenia F20.0 [facility] [address] [facility] [id number] [address] [place] [id number] Sep, [facility] [address] [place] [id number] [address] [place] [id number] Sep, Hypothyroidism (acquired) E0 3.9 [facility] [address] [place] [id number] [address] [place] [id number] 05 Sep, 2017 [facility] [address] [address] August, Schizoaffective disorder, de pressive type F25.1 [facility] [address] [id number] August, [facility] [address] [place] [id number] [place] [id number] August, [facility] [address] [id number] August, [place] [address] [id number] August, Paranoid schizophrenia F20.0 [place] [address] [place] [id number] [place] [id number] August, History of lupus Z87.39 and Chronic pain syndrome G89.4 [place] [address] [id number] August, [facility] [address] [id number] August, Seasonal allergic rhinitis, unspecified trigger J30.2 and BMI 45.0-49.9, adult Z68.42 [place] [address] [address] Jul, Schizoaffective disorder, de pressive type F25.1 [facility] [address] [id number] Jul, [place] [address] [id number] Jul, Hypothyroidism (acquired) E0 3.9 [facility] [address] [place] [id number] [place] [address] Jul, Chronic obstructive pulmonar y disease, unspecified COPD type J44.9 and Type 2 diabetes mellitus without complication, without long-term current use of insulin E11.9 [facility] [address] [facility] [id number] [address] [place] [address] Jul, Paranoid schizophrenia F20.0 [facility] [address] [address] Jun, Hypothyroidism (acquired) E0 3.9 and Seasonal allergic rhinitis due to pollen J30.1 [facility] [address] [facility] [id number] [address] [place] [id number] Jun, Shortness of breath at rest R06.02 ; COPD exacerbation J44.1 and BMI 45.0-49.9, adult Z68.42 [facility] [address] [address] Jun, [facility] [id number] [place] [address] Jun, Paranoid schizophrenia F20.0 ; Depression with anxiety F41.8 and BMI 45.0-49.9, adult Z68.42 [facility] [address] [place] [address] 20 Jun, 2017 Schizoaffective disorder, de pressive type F25.1 [facility] [address] [facility] [id number] [address] [place] [id number] Jun, Dental caries K02.9 [facility] [address] [address] [id number] [address] [place] [id number] Jun, Paranoid schizophrenia F20.0 [facility] [address] [facility] [id number] [address] [place] [address] May, Migraine without aura and wi thout status migrainosus, not intractable G43.009 ; DM neuro manif type II E11.49 and Type 2 diabetes mellitus without complication, without long-term current use of insulin E11.9 [facility] [address] [facility] [id number] [address] [place] [address] May, Migraine without aura and wi thout status migrainosus, not intractable G43.009 [facility] [address] [place] [address] May, Depression with anxiety F41. 8 [facility] [address] [place] [id number] [address] [place] [address] [id number] May, [facility] [id number] [place] [address] May, [facility] [address] [id number] May, [place] [address] [address] May, Hypothyroidism (acquired) E0 3.9 [place] [address] [address] May, Paranoid schizophrenia F20.0 [place] [address] [address] May, Type 2 diabetes mellitus wit hout [...] N32.81 and Controlled substance agreement signed Z79.899 [place] [address] [address] May, Controlled substance agreeme nt signed Z79.899 [place] [address] [address] Apr, [facility] [address] [place] [address] [id number] Apr, Dental examination Z01.20 [facility] [address] [facility] [id number] [address] [place] [address] Apr, Paranoid schizophrenia F20.0 [facility] [address] [facility] [id number] [address] [place] [address] Apr, Hypertension, unspecified ty pe I10 [facility] [address] [facility] [id number] [address] [place] [address] Apr, Paranoid schizophrenia F20.0 [facility] [address] [facility] [id number] [address] [place] [address] Apr, [facility] [address] [facility] [id number] [address] [place] [address] Apr, Tobacco abuse Z72.0 [facility] [address] [facility] [id number] [address] [place] [id number] Apr, [facility] [address] [facility] [id number] [address] [place] [phone] Mar, [facility] [address] [facility] [id number] [address] [place] [id number] Mar, Paranoid schizophrenia F20.0 and BMI 45.0-49.9, adult Z68.42 [facility] [address] [facility] [id number] [address] [place] [address] Mar, Schizoaffective disorder, de pressive type F25.1 [facility] [address] [facility] [id number] [address] [place] [address] Mar, [facility] [address] [facility] [id number] [address] [place] [phone] Mar, Hypothyroidism, unspecified type E03.9 [facility] [address] [facility] [id number] [address] [place] [id number] Mar, Schizoaffective disorder, de pressive type F25.1 [facility] [id number] [place] [id number] Feb, Gastroenteritis K52.9 and BM I 45.0-49.9, adult Z68.42 [facility] [address] [address] Feb, [facility] [address] [address] Feb, [place] [address] [address] Feb, [place] [address] [address] Feb, [place] [address] [address] Feb, Paranoid schizophrenia F20.[address] [address] Feb, Gastroesophageal reflux dise ase without esophagitis K21.9 ; Other seasonal allergic rhinitis J30.2 ; Other allergic rhinitis J30.89 ; Tobacco abuse Z72.0 and BMI 40.0-44.9, adult Z68.[address] [address] Feb, Onychomycosis B35.1 ; Callus of foot L84 and DM neuro manif type II E11.49 [place] [address] [address] Jan, Chronic allergic rhinitis J3 0.[address] [address] Jan, [address] [address] Jan, Schizoaffective disorder, de pressive type F25.[address] [address] Jan, [facility] [address] [facility] [id number] [address] [place] [id number] 07 Jan, 2017 Sore throat J02.9 and Season al allergic rhinitis due to other allergic trigger J30.89 [facility] [address] [facility] [id number] [address] [place] [address] 04 Jan, 2017 [facility] [address] [id number] [place] [address] 04 Jan, 2017 [facility] [address] [facility] [id number] [address] [place] [address] Jan, Chronic allergic rhinitis J3 0.9 [place] [address] [place] [id number] [place] [address] 27 Dec, 2016 Paranoid schizophrenia F20.0 ; Primary insomnia F51.01 and Schizoaffective disorder, depressive type F25.1 [place] [id number] [place] [address] Dec, Chronic pain syndrome G89.4 ; Cervicalgia of orijxoug-gdwotpo-mlwdk region M54.2 ; Menopausal syndrome (hot flashes) N95.1 and Encounter for immunization Z23 [facility] [id number] [place] [address] 14 Dec, 2016 [facility] [address] [id number] [place] [id number] 13 Dec, 2016 [facility] [address] [id number] [place] [id number] 08 Dec, 2016 Paranoid schizophrenia F20.0 [facility] [address] [facility] [id number] [address] [place] [address] Dec, Schizoaffective disorder, de pressive type F25.1 [facility] [address] [facility] [id number] [address] [place] [address] Nov, Hypothyroidism, unspecified type E03.9 [facility] [id number] [place] [address] Nov, Acute seasonal allergic rhin itis due to other allergen J30.89 [facility] [address] [facility] [id number] [address] [place] [address] Nov, [place] [id number] [facility] [id number] [address] [place] [address] Nov, Hypothyroidism, unspecified type E03.9 and Other elevated white blood cell (WBC) count D72.828 [place] [address] [facility] [id number] [address] [place] [address] Nov, Schizoaffective disorder, de pressive type F25.1 [place] [address] [place] [id number] [place] [address] Nov, Paranoid schizophrenia F20.0 [place] [address] [id number] [place] [address] Nov, Type 2 diabetes mellitus wit hout complication, without long-term current use of insulin E11.9 ; Morbid obesity due to excess calories E66.01 and Chronic pain syndrome G89.4 [place] [address] [place] [id number] [place] [address] Oct, Paranoid schizophrenia F20.0 [place] [address] [facility] [id number] [address] [place] [address] Oct, [place] [address] [place] [id number] [place] [address] Oct, Schizoaffective disorder, de pressive type F25.1 [place] [address] [facility] [id number] [address] [place] [id number] Oct, Hypothyroidism, unspecified type E03.9 and Other elevated white blood cell (WBC) count D72.828 [place] [address] [facility] [id number] [address] [place] [address] Oct, Morbid obesity due to excess calories E66.01 ; Chronic obstructive pulmonary disease, unspecified COPD type J44.9 ; History of lupus Z87.39 ; Hypothyroidism, unspecified type E03.9 ; Gastroesophageal reflux disease without esophagitis K21.9 ; Primary insomnia F51.01 and Chronic pain syndrome G89.4 [facility] [address] [facility] [id number] [address] [place] [address] Sep, [facility] [address] [facility] [id number] [address] [place] [address] Sep, [facility] [address] [facility] [id number] [address] [place] [address] Sep, [facility] [address] [facility] [id number] [address] [place] [address] Sep, Paranoid schizophrenia F20.0 [facility] [address] [facility] [id number] [address] [place] [address] Sep, [facility] [address] [facility] [id number] [address] [place] [address] Sep, Paranoid schizophrenia F20.0 [facility] [address] [facility] [id number] [address] [place] [address] Sep, [facility] [address] [facility] [id number] [address] [place] [address] August, Paranoid schizophrenia F20.0 [facility] [address] [facility] [id number] [address] [place] [address] Jul, [facility] [address] [facility] [id number] [address] [place] [address] Jul, Type 2 diabetes mellitus wit hout complication, without long-term current use of insulin E11.9 ; Morbid obesity due to excess calories E66.01 ; Depression with anxiety F41.8 ; Hypothyroidism, unspecified type E03.9 ; Seasonal allergic rhinitis due to other allergic trigger J30.89 ; Pain, dental K08.89 and Gastroesophageal reflux disease without esophagitis K21.9 [facility] [address] [id number] [address] [place] [address] [id number] Jul, Dental examination Z01.20 [place] [address] [place] [id number] [place] [address] 07 Jul, 2016 Paranoid schizophrenia F20.0 [place] [address] [id number] [place] [address] 13 Jun, 2016 Paranoid schizophrenia F20.0 and Depression with anxiety F41.8 [place] [address] [address] 10 Jun, 2016 Paranoid schizophrenia F20.0 and Depression with anxiety F41.8 [place] [address] [address] 09 Jun, 2016 [place] [address] [address] Jun, [facility] [place] [address] [address] Jun, Seasonal allergic rhinitis d ue to other allergic trigger J30.89 [facility] [address] [address] May, Sore throat J02.9 ; Other vi ral agents as the cause of diseases classified elsewhere B97.89 and Acute upper respiratory infection, unspecified J06.9 [place] [address] [address] 08 May, 2016 Paranoid schizophrenia F20.0 and Depression with anxiety F41.8 [place] [address] [place] [id number] [place] [address] Apr, Other seasonal allergic rhin itis J30.2 [place] [address] [place] [id number] [place] [address] Apr, Paranoid schizophrenia F20.0 and Depression with anxiety F41.8 [facility] [place] [address] [id number] [place] [address] Apr, Bronchitis J40 and Sore thro at J02.9 [facility] [address] [facility] [id number] [address] [place] [address] Apr, Type 2 diabetes mellitus wit hout complication, without long-term current use of insulin E11.9 [facility] [address] [facility] [id number] [address] [place] [address] Apr, Bronchitis J40 [facility] [address] [place] [id number] [place] [address] Apr, [facility] [address] [facility] [id number] [address] [place] [address] Apr, [facility] [address] [address] Mar, Type 2 diabetes mellitus wit hout [...] and Other seasonal allergic rhinitis J30.2 [facility] [address] [place] [id number] [place] [address] Mar, Paranoid schizophrenia F20.0 and Depression with anxiety F41.8 [facility] [address] [place] [address] Feb, [place] [address] [place] [id number] [place] [address] Feb, [place] [address] [address] Feb, [place] [address] [place] [id number] [place] [address] 14 Feb, 2016 [facility] [address] [address] 14 Feb, 2016 Type 2 diabetes mellitus wit hout complication, without long-term current use of insulin E11.9 ; ARIAS on CPAP G47.33 and Preoperative evaluation to rule out surgical contraindication Z01.818 [facility] [address] [id number] [address] [place] [id number] 09 Feb, 2016 Paranoid schizophrenia F20.0 and Depression with anxiety F41.8 [facility] [address] [id number] [address] [place] [address] 18 Jan, 2016 [facility] [address] [id number] [address] [place] [address] 18 Jan, 2016 Paranoid schizophrenia F20.0 and Depression with anxiety F41.8 [facility] [address] [id number] [address] [place] [id number] 17 Jan, 2016 [facility] [address] [id number] [address] [place] [id number] 14 Jan, 2016 Muscle strain T14.8 [facility] [address] [id number] [address] [place] [address] 10 Jan, 2016 Paranoid schizophrenia F20.0 [facility] [address] [id number] [address] [place] [address] 07 Jan, 2016 [facility] [address] [id number] [address] [place] [address] 05 Jan, 2016 Paranoid schizophrenia F20.0 and Depression with anxiety F41.8 [facility] [address] [id number] [address] [place] [id number] 05 Jan, 2016 [facility] [address] [id number] [address] [place] [address] Jan, [facility] [address] [id number] [address] [place] [id number] 28 Dec, 2015 [facility] [address] [id number] [address] [place] [id number] 23 Dec, 2015 Paranoid schizophrenia F20.0 [facility] [address] [id number] [address] [place] [address] 16 Dec, 2015 Paranoid schizophrenia F20.0 and Depression with anxiety F41.8 [facility] [address] [id number] [address] [place] [address] Nov, [facility] [address] [id number] [address] [place] [address] Nov, Paranoid schizophrenia F20.0 [facility] [address] [id number] [address] [place] [id number] Nov, Paranoid schizophrenia F20.0 and Depression with anxiety F41.8 [facility] [address] [id number] [address] [place] [address] 05 Nov, 2015 Type 2 diabetes mellitus wit hout complication, without long-term current use of insulin E11.9 ; Paranoid schizophrenia F20.0 ; Chronic obstructive pulmonary disease, unspecified COPD type J44.9 ; Morbid obesity due to excess calories E66.01 and Parkinsonian tremor G20 [facility] [address] [id number] [address] [place] [address] Nov, [facility] [address] [id number] [address] [place] [address] Oct, Paranoid schizophrenia F20.0 [facility] [address] [id number] [address] [place] [phone] Oct, Paranoid schizophrenia F20.0 [facility] [address] [id number] [address] [place] [phone] Oct, Paranoid schizophrenia F20.0 and Depression with anxiety F41.8 [facility] [address] [id number] [address] [place] [id number] Oct, [facility] [address] [id number] [address] [place] [address] Oct, Paranoid schizophrenia F20.0 and Depression with anxiety F41.8 [facility] [address] [address] Oct, Nasal sore J34.89 [place] [address] [address] Oct, Type 2 diabetes mellitus wit hout complication, without long-term current use of insulin E11.9 ; Depression with anxiety F41.8 ; Hypothyroidism, unspecified type E03.9 and History of lupus Z87.39 [place] [address] [address] Oct, [place] [address] [address] Oct, Type 2 diabetes mellitus wit hout [...] edema R60.9 and History of lupus Z87.39 [place] [address] [place] [id number] [address] [place] [address] Feb, [place] [address] [address] Jan, [place] [address] [address] Jan, [place] [address] [address] Jan, [place] [address] [address] Dec, [place] [address] [place] [id number] [place] [address] Nov, [facility] [address] [id number] [address] [place] [address], [place] [address] Nov, [facility] [address] [id number] [address] [place] [address], [place] [address] Oct, [facility] [address] [id number] [address] [place] [address], [place] [address] Oct, [facility] [address] [id number] [address] [place] [address], [place] [address] Oct, [facility] [address] [id number] [address] [place] [address], [place] [address] Sep, Allergic rhinitis 477.9 [facility] [address] [id number] [address] [place] [phone] Sep, Rhinitis, allergic 477.9 [facility] [address] [id number] [address] [place] [address], [place] [address] Sep, Rhinitis, allergic 477.9 [facility] [address] [id number] [address] [place] [address], [place] [address] Sep, [facility] [address] [id number] [address] [place] [address], [place] [address] August, [facility] [address] [id number] [address] [place] [address], [place] [address] August, [facility] [address] [id number] [address] [place] [address], [place] [address] August, [facility] [address] [id number] [address] [place] [address], [place] [address] 28 Jul, 2014 [facility] [address] [id number] [address] [place] [address], [place] [address] 14 Jul, 2014 [facility] [address] [id number] [address] [place] [address], [place] [address] 13 Jul, 2014 [facility] [address] [id number] [address] [place] [id number] 16 Jun, 2014 [facility] [address] [id number] [address] [place] [address], [place] [address] 16 Jun, 2014 [facility] [address] [id number] [address] [place] [address], [place] [address] Jun, [facility] [address] [id number] [address] [place] [address], [place] [address] Jun, [facility] [address] [id number] [address] [place] [address], [place] [id number] Jun, [facility] [address] [id number] [address] [place] [address], [place] [id number] 11 Jun, 2014 [facility] [address] [id number] [address] [place] [address], [place] [id number] Jun, [facility] [address] [id number] [address] [place] [address], [place] [id number] Jun, [facility] [address] [id number] [address] [place] [address], [place] [id number] May, [facility] [address] [id number] [address] [place] [address], [place] [address] May, [facility] [address] [id number] [address] [place] [address], [place] [id number] May, [facility] [address] [id number] [address] [place] [address], [place] [address] May, [facility] [address] [id number] [address] [place] [address], [place] [id number] Apr, [facility] [address] [id number] [address] [place] [address], [place] [id number] Mar, [facility] [address] [id number] [address] [place] [address], [place] [address] Mar, [facility] [address] [id number] [address] [place] [address], [place] [id number] Mar, [facility] [address] [id number] [address] [place] [id number] Mar, [facility] [address] [id number] [address] [place] [address], [place] [id number] Mar, [facility] [address] [id number] [address] [place] [address], [place] [id number] Mar, [facility] [address] [id number] [address] [place] [address], [place] [address] Mar, [facility] [address] [id number] [address] [place] [address], [place] [address] Mar, [facility] [address] [id number] [address] [place] [address], [place] [id number] Mar, [facility] [address] [id number] [address] [place] [address], [place] [id number] Feb, [facility] [address] [id number] [address] [place] [address], [place] [address] Feb, [facility] [address] [id number] [address] [place] [address], [place] [address] Feb, [facility] [address] [id number] [address] [place] [address], [place] [id number] Feb, [facility] [address] [id number] [address] [place] [address], [place] [address] Feb, [facility] [address] [id number] [address] [place] [address], [place] [address] Feb, [facility] [address] [id number] [address] [place] [address], [place] [id number] Feb, [facility] [address] [id number] [address] [place] [address], [place] [id number] Feb, [facility] [address] [id number] [address] [place] [address], [place] [id number] Jan, [facility] [address] [id number] [address] [place] [address], [place] [id number] Jan, [facility] [address] [id number] [address] [place] [address], [place] [id number] 16 Jan, 2013 [facility] [address] [id number] [address] [place] [address], [place] [id number] 16 Jan, 2014 [facility] [address] [id number] [address] [place] [address], [place] [address] 15 Jan, 2014 [facility] [address] [id number] [address] [place] [address], [place] [id number] 15 Jan, 2014 [facility] [address] [id number] [address] [place] [address], [place] [address] 14 Jan, 2014 [facility] [address] [id number] [address] [place] [address], [place] [address] 14 Jan, 2014 [facility] [address] [id number] [address] [place] [address], [place] [id number] 14 Jan, 2014 [facility] [address] [id number] [address] [place] [address], [place] [id number] 14 Jan, 2014 [facility] [address] [id number] [address] [place] [address], [place] [address] 18 Dec, 2013 [facility] [address] [id number] [address] [place] [address], [place] [id number] 18 Dec, 2013 [facility] [address] [id number] [address] [place] [address], [place] [id number] 10 Dec, 2013 [facility] [address] [id number] [address] [place] [address], [place] [address] 10 Dec, 2013 [facility] [address] [id number] [address] [place] [address], [place] [address] Nov, [facility] [address] [id number] [address] [place] [address], [place] [address] Nov, [facility] [address] [id number] [address] [place] [address], [place] [address] Nov, [facility] [address] [id number] [address] [place] [address], [place] [address] Nov, [facility] [address] [id number] [address] [place] [address], [place] [address] Nov, [facility] [address] [id number] [address] [place] [address], [place] [id number] Oct, [facility] [address] [id number] [address] [place] [address], [place] [address] Oct, [facility] [address] [id number] [address] [place] [address], [place] [address] Oct, [facility] [address] [id number] [address] [place] [address], [place] [address] Oct, [facility] [address] [id number] [address] [place] [address], [place] [address] Sep, [facility] [address] [id number] [address] [place] [address], [place] [id number] Sep, [facility] [address] [id number] [address] [place] [address], [place] [address] Sep, [facility] [address] [id number] [address] [place] [address], [place] [address] Sep, [facility] [address] [id number] [address] [place] [address], [place] [address] Sep, [facility] [address] [id number] [address] [place] [address], [place] [address] Sep, [facility] [address] [id number] [address] [place] [address], [place] [address] Sep, [facility] [address] [id number] [address] [place] [address], [place] [address] Sep, [facility] [address] [id number] [address] [place] [address], [place] [address] August, [facility] [address] [id number] [address] [place] [address], [place] [address] August, [facility] [address] [id number] [facility] [place] [address] August, [facility] [address] [id number] [address] [place] [address], [place] [address] August, [facility] [address] [id number] [address] [place] [address], [place] [address] August, [facility] [address] [id number] [address] [place] [address], [place] [address] August, [facility] [address] [id number] [address] [place] [address], [place] [address] August, [facility] [address] [id number] [address] [place] [address], [place] [address] Jul, [facility] [address] [id number] [address] [place] [address], [place] [address] Jul, [facility] [address] [id number] [address] [place] [address], [place] [address] Jul, [facility] [address] [id number] [address] [place] [address], [place] [address] Jul, [facility] [address] [id number] [address] [place] [address], [place] [address] Jul, [facility] [address] [id number] [address] [place] [address], [place] [address] Jul, [facility] [address] [id number] [address] [place] [address], [place] [address] Jul, [facility] [address] [id number] [address] [place] [address], [place] [address] Jul, [facility] [address] [id number] [address] [place] [address], [place] [address] Jul, [facility] [address] [id number] [address] [place] [address], [place] [address] Jul, [facility] [address] [id number] [address] [place] [address], [place] [address] Jul, [facility] [address] [id number] [address] [place] [address], [place] [address] Jul, [facility] [address] [id number] [address] [place] [address], [place] [address] Jun, [facility] [address] [id number] [address] [place] [address], [place] [address] Jun, [facility] [address] [id number] [address] [place] [address], [place] [address] Jun, [facility] [address] [id number] [address] [place] [address], [place] [address] Jun, [facility] [address] [id number] [address] [place] [address], [place] [address] Jun, [facility] [address] [id number] [address] [place] [address], [place] [address] May, [facility] [address] [id number] [address] [place] [address], [place] [address] May, [facility] [address] [id number] [address] [place] [address], [place] [address] May, [facility] [address] [id number] [address] [place] [address], [place] [address] May, [facility] [address] [id number] [address] [place] [address], [place] [address] May, [facility] [address] [id number] [address] [place] [address], [place] [address] May, [facility] [address] [id number] [address] [place] [address], [place] [address] May, [facility] [address] [id number] [address] [place] [address], [place] [address] May, [facility] [address] [id number] [address] [place] [address], [place] [address] Mar, [facility] [address] [id number] [address] [place] [address], [place] [address] 09 Mar, 2013 [facility] [address] [id number] [address] [place] [address], [place] [address] Mar, [facility] [address] [id number] [address] [place] [address], [place] [address] Mar, [facility] [address] [id number] [address] [place] [address], [place] [address] Mar, [facility] [address] [id number] [address] [place] [address], [place] [address] Mar, [facility] [address] [id number] [address] [place] [address], [place] [address] Feb, [facility] [address] [id number] [address] [place] [address], [place] [address] Feb, [facility] [address] [id number] [address] [place] [address], [place] [address] Jan, [facility] [address] [id number] [address] [place] [address], [place] [address] Jan, [facility] [address] [id number] [address] [place] [address], [place] [address] Jan, [facility] [address] [id number] [address] [place] [address] Jan, [facility] [address] [id number] [address] [place] [address], [place] [address] Jan, [facility] [address] [id number] [address] [place] [id number] Jan, [facility] [address] [id number] [address] [place] [id number] Jan, [facility] [address] [id number] [address] [place] [id number] Jan, [facility] [address] [id number] [address] [place] [id number] Jan, [facility] [address] [id number] [address] [place] [address], [place] [address] Jan, [facility] [address] [id number] [address] [place] [address], [place] [address] Dec, [facility] [address] [id number] [address] [place] [address], [place] [address] Nov, [facility] [address] [id number] [address] [place] [address], [place] [address] Nov, [facility] [address] [id number] [address] [place] [address], [place] [address] Nov, [facility] [address] [id number] [address] [place] [address], [place] [address] Oct, [facility] [address] [id number] [address] [place] [address], [place] [address] Oct, [facility] [address] [id number] [address] [place] [address], [place] [address] August, [facility] [address] [id number] [address] [place] [address], [place] [address] Apr, [facility] [address] [id number] [address] [place] [address], [place] [address] Apr, [facility] [address] [id number] [address] [place] [address], [place] [address] Feb, [facility] [address] [id number] [address] [place] [address], [place] [address] Feb, [facility] [address] [id number] [address] [place] [address], [place] [address] Dec, [facility] [address] [id number] [address] [place] [address], [place] [address] Dec, [facility] [address] [id number] [address] [place] [address], [place] [address] Oct, [facility] [address] [id number] [address] [address] Oct, [facility] [address] [facility] [id number] [address] [place] [id number] Oct, [facility] [address] [facility] [id number] [address] [place] [id number] Jul, IMMUNIZATIONS No Known Immunizations SOCIAL HISTORY Never Assessed REASON FOR VISIT refill PLAN OF CARE VITAL SIGNS MEDICATIONS Medication Instructions Dosage Frequency Start Date End Date Duration S tatus Ambien 5 mg Orally at bedtime as needed 1 tablet at bedtime 28 days Active RESULTS No Results PROCEDURES [...] hospitalizations for psychosis/mental illness, last one in [facility] 4 years ago Hospitalization History broken ankle 08/2018
--- OUTSIDE RECORDS SUMMARY | 2019-07-07 04:17 | XMS REPORT ---
Author Author Alayna ROJAS [facility] Address [address] [place] [address] Care Team Providers Care Services Program Manager Name Role Phone RADHA ROJAS Unavailable PROBLEMS ALLERGIES No Information ENCOUNTERS IMMUNIZATIONS No Known Immunizations SOCIAL HISTORY No smoking Hx information available REASON FOR VISIT PLAN OF CARE VITAL SIGNS MEDICATIONS Unknown Medications RESULTS No Results PROCEDURES No Known procedures INSTRUCTIONS MEDICATIONS ADMINISTERED No Known Medications MEDICAL (GENERAL) HISTORY
--- OUTSIDE RECORDS SUMMARY | 2019-07-07 04:17 | XMS REPORT ---
Author Author Alayna ROJAS Organization [facility] Address [address] [place] [address] Care Team Providers Care Conservation Educator Name Role Phone RADHA ROJAS Unavailable PROBLEMS Type Condition ICD9-CM Code OVJ58-XN Code Onset Dates Condition S tatus SNOMED Code Problem Depression with anxiety F41.8 Active 088048070 Problem Morbid obesity due to excess calories E66.01 Active 400573080 Problem Chronic obstructive pulmonary disease, unspecified COPD ty pe J44.9 Active 87561641 Problem Paranoid schizophrenia F20.0 Active 93007372 Problem Chronic pain syndrome G89.4 Active 040025730 Problem History of lupus Z87.39 Active 312 659426 Problem Type 2 diabetes mellitus wit hout complication, without long-term current use of insulin E11.9 Active 024115482 Problem Dyslipidemia E78.5 Active 2279496 07 Problem Migraine without aura and without status migrain osus, not intractable G43.009 Active 267468783 Problem Primary insomnia F51.01 Active 397 2004 Problem Schizoaffective disorder, depressive type F25.1 Active 87080228 Problem Menopausal syndrome (hot flashes) N95.1 Active 206005421 Problem DM neuro manif type II E11.49 Active 26348742 Problem Other seasonal allergic rhinitis J30.2 Active 839089396 Problem Other allergic rhinitis J30.89 Active 530090973 Problem Gastroesophageal reflux disease, esophagitis pre sence not specified K21.9 Active 467120330 Problem Tobacco abuse Z72.0 Active 172106 000 Problem Essential hypertension I10 Active 89902328 Problem Hypothyroidism (acquired) E03.9 Acti ve 816056330 Problem COPD exacerbation J44.1 Active 19 7323580 Problem Allergic rhinitis, unspecified seasonality, unspecifie d trigger J30.9 Active 43745697 Problem Gastroesophageal reflux disease without esophagitis K21.9 Active 806560876 Problem Constipation by delayed colonic transit K59.01 Active 18344201 Problem OAB (overactive bladder) N32.81 Activ e 032374546 Problem Seasonal allergic rhinitis due to other allergic trigger J30.89 Active 076418246 Problem Seasonal allergic rhinitis due to pollen J30.1 Active 04661219 Problem 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, without long-term current use of insulin E11.610 Active 383208494 Problem Diabetic polyneuropathy associated with type 2 d iabetes mellitus E11.42 Active 582149334 Problem Cigarette nicotine dependence without complication F17.210 Active 53846642 ALLERGIES No Information ENCOUNTERS Encounter Location Date Diagnosis [facility] [address] [facility] [id number] [address] [place] [id number] Dec, [facility] [address] [facility] [id number] [address] [place] [phone] Nov, [facility] [address] [facility] [id number] [address] [place] [id number] Nov, [facility] [address] [place] [id number] [address] [place] [address] Nov, [facility] [address] [facility] [id number] [address] [place] [phone] Nov, [facility] [address] [facility] [id number] [address] [place] [phone] Nov, Schizoaffective disorder, de pressive type F25.1 [facility] [address] [facility] [id number] [address] [place] [phone] Nov, Constipation by delayed colo james transit K59.01 [facility] [address] [facility] [id number] [address] [place] [phone] Oct, [facility] [address] [facility] [id number] [address] [place] [id number] Oct, [facility] [address] [facility] [id number] [address] [place] [phone] Oct, [facility] [address] [facility] [id number] [address] [place] [id number] Oct, Chronic obstructive pulmonar y disease, unspecified COPD type J44.9 [facility] [address] [facility] [id number] [address] [place] [id number] Oct, [facility] [address] [facility] [id number] [address] [place] [address] Sep, Paranoid schizophrenia F20.0 [facility] [address] [facility] [id number] [address] [place] [phone] Sep, [facility] [address] [facility] [id number] [address] [place] [phone] Sep, [facility] [address] [facility] [id number] [address] [place] [address] Sep, Encounter for immunization Z 23 [facility] [address] [facility] [id number] [address] [place] [id number] Sep, [facility] [address] [facility] [id number] [address] [place] [address] Sep, Closed fracture of right ank le, sequela S82.891S ; Morbid obesity E66.01 and Heat rash L74.0 [facility] [address] [facility] [id number] [address] [place] [id number] Sep, Schizoaffective disorder, de pressive type F25.1 [facility] [address] [facility] [id number] [address] [place] [id number] Sep, [facility] [address] [facility] [id number] [address] [place] [phone] Sep, [facility] [address] [facility] [id number] [address] [place] [id number] Sep, [facility] [address] [facility] [id number] [address] [place] [phone] Sep, [facility] [address] [facility] [id number] [address] [place] [phone] Sep, [facility] [address] [id number] [address] [place] [phone] Sep, [facility] [address] [id number] [address] [place] [address] Sep, [facility] [address] [facility] [id number] [address] [place] [address] Sep, [facility] [address] [facility] [id number] [address] [place] [id number] Sep, [facility] [address] [facility] [id number] [address] [place] [id number] August, Paranoid schizophrenia F20.0 [facility] [address] [facility] [id number] [address] [place] [address] August, [facility] [address] [facility] [id number] [address] [place] [phone] August, [facility] [address] [facility] [id number] [address] [place] [address] August, [facility] [address] [facility] [id number] [address] [place] [address] August, Type 2 diabetes mellitus wit hout complication, without long-term current use of insulin E11.9 ; Closed fracture of right ankle, initial encounter S82.891A ; Constipation by delayed colonic transit K59.01 ; Osteoporosis with pathological fracture, initial encounter M80.00XA ; Encounter for immunization Z23 and Morbid obesity E66.01 [facility] [address] [facility] [id number] [address] [place] [id number] August, [facility] [address] [facility] [id number] [address] [place] [phone] August, [facility] [address] [facility] [id number] [address] [place] [address] August, Acquired deformity of muscul oskeletal system, unspecified M95.9 [facility] [address] [facility] [id number] [address] [place] [id number] August, Paranoid schizophrenia F20.0 [facility] [address] [id number] [place] [address] August, [place] [address] [place] [address] Jul, [place] [address] [place] [id number] [address] [place] [address] Jul, Diabetic polyneuropathy asso ciated with type 2 diabetes mellitus E11.42 ; Paranoid schizophrenia F20.0 ; Preoperative clearance Z01.818 and Morbid obesity E66.01 [place] [address] [facility] [id number] [address] [place] [address] Jul, Paranoid schizophrenia F20.0 [place] [address] [place] [id number] [address] [place] [id number] Jul, [place] [address] [place] [address] Jul, [facility] [address] [place] [id number] [address] [place] [id number] Jul, Cigarette nicotine dependenc e without complication F17.210 [place] [address] [place] [id number] [address] [place] [address] Jul, Type 2 diabetes mellitus wit hout complication, without long-term current use of insulin E11.9 and Hypothyroidism (acquired) E03.9 [place] [address] [place] [id number] [address] [place] [address] Jul, Encounter for Medicare annua l wellness exam Z00.00 ; Morbid obesity due to excess calories E66.01 ; Diabetic polyneuropathy associated with type 2 diabetes mellitus E11.42 ; Chronic obstructive pulmonary disease, unspecified COPD type J44.9 ; Schizoaffective disorder, depressive type F25.1 ; Hypothyroidism (acquired) E03.9 and Morbid obesity E66.01 [facility] [address] [place] [id number] [address] [place] [id number] Jun, Gastroesophageal reflux dise ase without esophagitis K21.9 [place] [address] [facility] [id number] [address] [place] [phone] Jun, Paranoid schizophrenia F20.0 [facility] [address] [facility] [id number] [address] [place] [address] Jun, Schizoaffective disorder, de pressive type F25.1 [place] [address] [facility] [id number] [address] [place] [address] Jun, [facility] [address] [facility] [id number] [address] [place] [address] Jun, Schizoaffective disorder, de pressive type F25.1 [place] [address] [facility] [id number] [place] [address] Jun, Cigarette nicotine dependenc e without complication F17.210 [place] [address] [address] Jun, Type 2 diabetes mellitus wit hout complication, without long-term current use of insulin E11.9 [place] [address] [place] [address] Jun, [place] [address] [place] [id number] [place] [phone] Jun, [place] [address] [place] [id number] [address] [place] [phone] Jun, [place] [address] [place] [id number] [address] [place] [phone] Jun, [facility] [address] [facility] [id number] [address] [place] [address] Jun, [place] [address] [place] [id number] [place] [phone] 06 Jun, 2018 Paranoid schizophrenia F20.0 ; Type 2 diabetes mellitus without complication, without long-term current use of insulin E11.9 ; Hypothyroidism (acquired) E03.9 and Morbid obesity E66.01 [place] [address] [place] [address] May, Paranoid schizophrenia F20.0 [place] [address] [place] [id number] [place] [address] 20 May, 2018 Hypothyroidism (acquired) E0 3.9 and Dyslipidemia E78.5 [place] [address] [address] 19 May, 2018 Cigarette nicotine dependenc e without complication F17.210 [place] [address] [place] [id number] [address] [place] [phone] May, [place] [address] [address] 14 May, 2018 Type 2 diabetes mellitus wit hout complication, without long-term current use of insulin E11.9 ; Essential hypertension I10 ; Hypothyroidism (acquired) E03.9 and Dyslipidemia E78.5 [place] [address] [place] [id number] [address] [place] [phone] May, [place] [address] [address] May, Schizoaffective disorder, de pressive type F25.1 [place] [address] [place] [id number] [address] [place] [phone] May, Paranoid schizophrenia F20.0 [place] [address] [place] [id number] [address] [place] [address] May, [facility] [address] [place] [address] May, 19 [place] [address] [address] May, [place] [address] [place] [id number] [address] [place] [address] May, Type 2 diabetes mellitus wit hout complication, without long-term current use of insulin E11.9 ; Essential hypertension I10 ; Hypothyroidism (acquired) E03.9 and Dyslipidemia E78.5 [facility] [address] [facility] [id number] [address] [place] [id number] 04 May, 2018 [facility] [address] [facility] [id number] [address] [place] [address] 04 May, 2018 Acute nasopharyngitis J00 [facility] [address] [facility] [id number] [address] [place] [id number] 04 May, 2018 Allergic rhinitis, unspecifi ed seasonality, unspecified trigger J30.9 [facility] [address] [facility] [id number] [address] [place] [phone] May, [facility] [address] [place] [id number] [place] [phone] Apr, Schizoaffective disorder, de pressive type F25.1 [place] [address] [place] [id number] [address] [place] [address] Apr, [facility] [address] [place] [id number] [address] [place] [address] Apr, Cigarette nicotine dependenc e without complication F17.210 [place] [address] [place] [id number] [address] [place] [address] Apr, [place] [address] [place] [id number] [address] [place] [address] Apr, Cigarette nicotine dependenc e without complication F17.210 [place] [address] [facility] [id number] [address] [place] [address] Apr, [place] [address] [place] [id number] [place] [address] Apr, Migraine without aura and wi thout status migrainosus, not intractable G43.009 [place] [address] [place] [id number] [address] [place] [phone] Apr, Migraine without aura and wi thout status migrainosus, not intractable G43.009 [facility] [address] [facility] [id number] [address] [place] [address] Mar, Schizoaffective disorder, de pressive type F25.1 ; BMI 45.0-49.9, adult Z68.42 and BMI 40.0-44.9, adult Z68.41 [facility] [address] [place] [id number] [address] [place] [address] Mar, Primary insomnia F51.01 [facility] [address] [facility] [id number] [address] [place] [address] Mar, [place] [address] [place] [id number] [place] [address] Feb, Primary insomnia F51.01 [facility] [address] [facility] [id number] [address] [place] [address] Feb, [facility] [address] [place] [id number] [place] [address] Jan, Schizoaffective disorder, de pressive type F25.1 and BMI 45.0-49.9, adult Z68.42 [place] [address] [place] [id number] [place] [address] Jan, [facility] [address] [place] [id number] [address] [place] [address] Jan, 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, without long-term current use of insulin E11.610 ; Menopausal syndrome (hot flashes) N95.1 and BMI 40.0-44.9, adult Z68.41 [facility] [address] [place] [id number] [address] [place] [phone] Jan, Paranoid schizophrenia F20.0 [facility] [address] [place] [id number] [address] [place] [phone] Jan, [facility] [address] [place] [id number] [address] [place] [address] Jan, Schizoaffective disorder, de pressive type F25.1 [facility] [address] [facility] [id number] [address] [place] [address] Jan, [facility] [address] [facility] [id number] [address] [place] [address] 02 Jan, 2018 Chronic obstructive pulmonar y disease, unspecified COPD type J44.9 ; BMI 45.0-49.9, adult Z68.42 ; Type 2 diabetes mellitus without complication, without long-term current use of insulin E11.9 ; Hypothyroidism (acquired) E03.9 ; Encounter for immunization Z23 ; Gastroesophageal reflux disease without esophagitis K21.9 ; Primary insomnia F51.01 and Acute nasopharyngitis J00 [place] [address] [facility] [id number] [address] [place] [address] 27 Dec, 2017 [place] [address] [place] [id number] [address] [place] [id number] 21 Dec, 2017 Schizoaffective disorder, de pressive type F25.1 and BMI 45.0-49.9, adult Z68.42 [place] [address] [facility] [id number] [address] [place] [phone] Dec, [place] [address] [facility] [id number] [address] [place] [id number] 18 Dec, 2017 [place] [address] [facility] [id number] [address] [place] [address] 18 Dec, 2017 Acute non-recurrent frontal sinusitis J01.10 [facility] [address] [facility] [id number] [address] [place] [address] 18 Dec, 2017 Acute non-recurrent frontal sinusitis J01.10 ; Weakness of left leg R29.898 ; At high risk for falls Z91.81 and BMI 45.0-49.9, adult Z68.42 [facility] [address] [facility] [id number] [address] [place] [id number] 17 Dec, 2017 [facility] [address] [place] [id number] [address] [place] [id number] Dec, [facility] [address] [facility] [id number] [address] [place] [address] Dec, Schizoaffective disorder, de pressive type F25.1 [facility] [address] [facility] [id number] [address] [place] [address] Dec, Acute nasopharyngitis J00 [facility] [address] [facility] [id number] [address] [place] [address] Dec, Schizoaffective disorder, de pressive type F25.1 [facility] [address] [facility] [id number] [address] [place] [address] Dec, [facility] [address] [place] [id number] [address] [place] [address] Nov, Schizoaffective disorder, de pressive type F25.1 and BMI 45.0-49.9, adult Z68.42 [facility] [address] [place] [address] Nov, [facility] [address] [place] [id number] [address] [place] [address] Nov, [facility] [address] [address] Nov, Schizoaffective disorder, de pressive type F25.1 [facility] [address] [place] [address] Nov, Well woman exam Z01.419 ; BM I 45.0-49.9, adult Z68.42 ; Screening breast examination Z12.31 and Dietary counseling and surveillance Z71.3 [facility] [address] [place] [id number] [address] [place] [address] Nov, Paranoid schizophrenia F20.0 [facility] [address] [place] [id number] [address] [place] [id number] Nov, Gastroesophageal reflux dise ase, esophagitis presence not specified K21.9 [facility] [address] [facility] [id number] [address] [place] [phone] Oct, Paranoid schizophrenia F20.0 [facility] [address] [id number] [address] Oct, Chronic pain syndrome G89.4 and Schizoaf fective disorder, depressive type F25.1 [place] [address] [facility] [id number] [address] [place] [address] Oct, Chronic pain syndrome G89.4 and Schizoaffective disorder, depressive type F25.1 [place] [address] [facility] [id number] [address] [place] [address] Oct, Type 2 diabetes mellitus wit hout complication, without long-term current use of insulin E11.9 [place] [address] [place] [id number] [address] [place] [phone] Oct, Essential hypertension I10 a nd DM neuro manif type II E11.49 [place] [address] [facility] [id number] [address] [place] [address] Oct, [place] [address] [place] [id number] [place] [phone] Oct, Schizoaffective disorder, de pressive type F25.1 and BMI 45.0-49.9, adult Z68.42 [place] [address] [facility] [id number] [address] [place] [address] Oct, [place] [address] [place] [id number] [address] [place] [address] Oct, Paranoid schizophrenia F20.0 [place] [address] [facility] [id number] [address] [place] [id number] Oct, 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, without long-term current use of insulin E11.610 ; Essential hypertension I10 ; Hypothyroidism (acquired) E03.9 ; Chronic obstructive pulmonary disease, unspecified COPD type J44.9 and Diabetic polyneuropathy associated with type 2 diabetes mellitus E11.42 [place] [id number] [id number] [address] [place] [id number] Sep, Paranoid schizophrenia F20.0 [facility] [address] [id number] [address] [place] [id number] Sep, Paranoid schizophrenia F20.0 and BMI 45.0-49.9, adult Z68.42 [facility] [address] [id number] [address] [place] [id number] Sep, Schizoaffective disorder, de pressive type F25.1 [facility] [address] [id number] [address] [place] [id number] Sep, [facility] [address] [id number] [address] [place] [id number] Sep, Paranoid schizophrenia F20.0 [facility] [address] [id number] [address] [place] [id number] Sep, [facility] [address] [id number] [address] [place] [id number] 06 Sep, 2017 Hypothyroidism (acquired) E0 3.9 [facility] [address] [id number] [address] [place] [id number] Sep, [facility] [address] [facility] [id number] [address] [place] [id number] August, Schizoaffective disorder, de pressive type F25.1 [facility] [address] [id number] [address] [place] [id number] August, [facility] [facility] [address] [facility] [id number] [address] [place] [id number] August, [facility] [address] [facility] [id number] [address] [place] [id number] August, [facility] [address] [facility] [id number] [address] [place] [id number] August, Paranoid schizophrenia F20.0 [facility] [address] [address] August, History of lupus Z87.39 and Chronic pain syndrome G89.4 [place] [address] [address] August, [facility] [place] [address] [address] August, Seasonal allergic rhinitis, unspecified trigger J30.2 and BMI 45.0-49.9, adult Z68.[address] [address] Jul, Schizoaffective disorder, de pressive type F25.1 [place] [address] [address] Jul, [address] [address] Jul, Hypothyroidism (acquired) E0 3.[address] [address] Jul, Chronic obstructive pulmonar y disease, unspecified COPD type J44.9 and Type 2 diabetes mellitus without complication, without long-term current use of insulin E11.[address] [address] Jul, Paranoid schizophrenia F20.[address] [address] Jun, Hypothyroidism (acquired) E0 3.9 and Seasonal allergic rhinitis due to pollen J30.1 [facility] [address] [address] Jun, Shortness of breath at rest R06.02 ; COPD exacerbation J44.1 and BMI 45.0-49.9, adult Z68.[address] [address] Jun, [facility] [address] [facility] [id number] [address] [place] [address] Jun, Paranoid schizophrenia F20.0 ; Depression with anxiety F41.8 and BMI 45.0-49.9, adult Z68.42 [facility] [address] [facility] [id number] [address] [place] [phone] Jun, Schizoaffective disorder, de pressive type F25.1 [facility] [address] [id number] [address] [place] [id number] Jun, Dental caries K02.9 [facility] [address] [facility] [id number] [place] [phone] Jun, Paranoid schizophrenia F20.0 [facility] [address] [facility] [id number] [address] [place] [id number] May, Migraine without aura and wi thout status migrainosus, not intractable G43.009 ; DM neuro manif type II E11.49 and Type 2 diabetes mellitus without complication, without long-term current use of insulin E11.9 [facility] [address] [facility] [id number] [address] [place] [id number] May, Migraine without aura and wi thout status migrainosus, not intractable G43.009 [facility] [address] [facility] [id number] [address] [place] [address] May, Depression with anxiety F41. 8 [facility] [address] [id number] [address] [place] [id number] May, [facility] [address] [facility] [id number] [address] [place] [id number] May, [facility] [address] [facility] [id number] [address] [place] [phone] May, [facility] [address] [facility] [id number] [address] [place] [phone] May, Hypothyroidism (acquired) E0 3.9 [id number] [place] [id number] [address] [place] [address] 08 May, 2017 Paranoid schizophrenia F20.0 [place] [address] [address] 08 May, 2017 Type 2 diabetes mellitus [...] N32.81 and Controlled substance agreement signed Z79.899 [place] [address] [address] 02 May, 2017 Controlled substance agreeme nt signed Z79.899 [place] [address] [address] Apr, [facility] [address] [place] [id number] [address] [place] [id number] Apr, Dental examination Z01.20 [place] [address] [address] Apr, Paranoid schizophrenia F20.0 [place] [address] [address] [place] [id number] [address] [place] [id number] Apr, Hypertension, unspecified ty pe I10 [place] [address] [address] Apr, Paranoid schizophrenia F20.0 [place] [address] [address] [place] [id number] [address] [place] [phone] Apr, [place] [address] [address] [place] [id number] [place] [phone] Apr, Tobacco abuse Z72.0 [facility] [address] [facility] [id number] [address] [place] [id number] Apr, [facility] [address] [facility] [id number] [address] [place] [id number] Mar, [facility] [address] [place] [id number] [address] [place] [address] Mar, Paranoid schizophrenia F20.0 and BMI 45.0-49.9, adult Z68.42 [facility] [address] [place] [id number] [address] [place] [id number] Mar, Schizoaffective disorder, de pressive type F25.1 [facility] [address] [place] [id number] [address] [place] [id number] Mar, [facility] [address] [place] [id number] [place] [phone] Mar, Hypothyroidism, unspecified type E03.9 [facility] [address] [place] [id number] [address] [place] [phone] Mar, Schizoaffective disorder, de pressive type F25.1 [facility] [address] [facility] [id number] [address] [place] [phone] Feb, Gastroenteritis K52.9 and BM I 45.0-49.9, adult Z68.42 [facility] [address] [place] [id number] [address] [place] [id number] Feb, [facility] [address] [place] [id number] [address] [place] [id number] Feb, [facility] [address] [place] [id number] [address] [place] [id number] Feb, [facility] [address] [place] [id number] [address] [place] [phone] Feb, [facility] [address] [address] Feb, Paranoid schizophrenia F20.[address] [address] Feb, Gastroesophageal reflux dise ase without esophagitis K21.9 ; Other seasonal allergic rhinitis J30.2 ; Other allergic rhinitis J30.89 ; Tobacco abuse Z72.0 and BMI 40.0-44.9, adult Z68.[address] [address] Feb, Onychomycosis B35.1 ; Callus of foot L84 and DM neuro manif type II E11.[address] [address] Jan, Chronic allergic rhinitis J3 0.[address] [address] Jan, [address] [address] Jan, Schizoaffective disorder, de pressive type F25.[address] [address] Jan, [facility] [address] [place] [address] Jan, Sore throat J02.9 and Season al allergic rhinitis due to other allergic trigger J30.89 [place] [address] [address] Jan, [address] [address] Jan, [facility] [address] [place] [address] Jan, Chronic allergic rhinitis J3 0.[address] [address] Dec, Paranoid schizophrenia F20.0 ; Primary insomnia F51.01 and Schizoaffective disorder, depressive type F25.1 [facility] [address] [facility] [id number] [address] [place] [address] Dec, Chronic pain syndrome G89.4 ; Cervicalgia of tdesuzqh-zdkvome-ttgel region M54.2 ; Menopausal syndrome (hot flashes) N95.1 and Encounter for immunization Z23 [facility] [address] [facility] [id number] [address] [place] [id number] 14 Dec, 2016 [facility] [address] [facility] [id number] [address] [place] [address] Dec, [place] [address] [place] [id number] [address] [place] [id number] Dec, Paranoid schizophrenia F20.0 [facility] [address] [place] [id number] [address] [place] [address] Dec, Schizoaffective disorder, de pressive type F25.1 [facility] [address] [place] [id number] [address] [place] [address] Nov, Hypothyroidism, unspecified type E03.9 [facility] [address] [facility] [id number] [address] [place] [phone] Nov, Acute seasonal allergic rhin itis due to other allergen J30.89 [facility] [address] [facility] [id number] [address] [place] [address] Nov, [facility] [address] [facility] [id number] [address] [place] [address] Nov, Hypothyroidism, unspecified type E03.9 and Other elevated white blood cell (WBC) count D72.828 [facility] [address] [facility] [id number] [address] [place] [address] Nov, Schizoaffective disorder, de pressive type F25.1 [facility] [address] [place] [id number] [address] [place] [address] Nov, Paranoid schizophrenia F20.0 [place] [address] [facility] [id number] [address] [place] [address] Nov, Type 2 diabetes mellitus wit hout complication, without long-term current use of insulin E11.9 ; Morbid obesity due to excess calories E66.01 and Chronic pain syndrome G89.4 [place] [address] [place] [id number] [address] [place] [address] Oct, Paranoid schizophrenia F20.0 [place] [address] [place] [id number] [address] [place] [address] Oct, [place] [address] [place] [id number] [place] [address] Oct, Schizoaffective disorder, de pressive type F25.1 [place] [id number] [place] [address] Oct, Hypothyroidism, unspecified type E03.9 and Other elevated white blood cell (WBC) count D72.828 [place] [address] [place] [id number] [address] [place] [address] Oct, Morbid obesity due to excess calories E66.01 ; Chronic obstructive pulmonary disease, unspecified COPD type J44.9 ; History of lupus Z87.39 ; Hypothyroidism, unspecified type E03.9 ; Gastroesophageal reflux disease without esophagitis K21.9 ; Primary insomnia F51.01 and Chronic pain syndrome G89.4 [place] [address] [place] [id number] [address] [place] [address] Sep, [place] [address] [facility] [id number] [address] [place] [address] Sep, [place] [address] [place] [id number] [address] [place] [address] Sep, [facility] [address] [place] [id number] [address] [place] [id number] Sep, Paranoid schizophrenia F20.0 [facility] [address] [id number] [address] [place] [address] Sep, [facility] [address] [id number] [address] [place] [address] Sep, Paranoid schizophrenia F20.0 [facility] [address] [id number] [address] [place] [phone] Sep, [facility] [address] [id number] [address] [place] [address] August, Paranoid schizophrenia F20.0 [facility] [address] [facility] [id number] [address] [place] [address] Jul, [facility] [address] [facility] [id number] [address] [place] [address] Jul, Type 2 diabetes mellitus wit hout complication, without long-term current use of insulin E11.9 ; Morbid obesity due to excess calories E66.01 ; Depression with anxiety F41.8 ; Hypothyroidism, unspecified type E03.9 ; Seasonal allergic rhinitis due to other allergic trigger J30.89 ; Pain, dental K08.89 and Gastroesophageal reflux disease without esophagitis K21.9 [facility] [address] [id number] [address] [place] [id number] Jul, Dental examination Z01.20 [facility] [address] [facility] [id number] [address] [place] [address] Jul, Paranoid schizophrenia F20.0 [facility] [address] [facility] [id number] [address] [place] [address] Jun, Paranoid schizophrenia F20.0 and Depression with anxiety F41.8 [facility] [address] [facility] [id number] [address] [place] [phone] Jun, Paranoid schizophrenia F20.0 and Depression with anxiety F41.8 [facility] [address] [facility] [id number] [address] [place] [phone] Jun, [facility] [address] [place] [id number] [address] [place] [id number] 08 Jun, 2016 [facility] [address] [place] [id number] [place] [address] 08 Jun, 2016 Seasonal allergic rhinitis d ue to other allergic trigger J30.89 [facility] [address] [place] [id number] [address] [place] [phone] 25 May, 2016 Sore throat J02.9 ; Other vi ral agents as the cause of diseases classified elsewhere B97.89 and Acute upper respiratory infection, unspecified J06.9 [facility] [address] [place] [id number] [place] [address] 08 May, 2016 Paranoid schizophrenia F20.0 and Depression with anxiety F41.8 [place] [address] [address] Apr, Other seasonal allergic rhin itis J30.2 [place] [address] [address] Apr, Paranoid schizophrenia F20.0 and Depression with anxiety F41.8 [facility] [address] [address] Apr, Bronchitis J40 and Sore thro at J02.9 [facility] [address] [place] [id number] [place] [address] Apr, Type 2 diabetes mellitus wit hout complication, without long-term current use of insulin E11.9 [facility] [address] [place] [id number] [address] [place] [phone] Apr, Bronchitis J40 [place] [address] [address] Apr, [facility] [address] [place] [id number] [place] [address] Apr, [place] [address] [address] Mar, Type 2 diabetes mellitus wit hout [...] R60.9 and Other seasonal allergic rhinitis J30.2 [place] [address] [facility] [id number] [address] [place] [phone] Mar, Paranoid schizophrenia F20.0 and Depression with anxiety F41.8 [place] [address] [facility] [id number] [address] [place] [address] Feb, [place] [address] [place] [address] Feb, [place] [address] [facility] [id number] [address] [place] [phone] Feb, [place] [address] [facility] [id number] [address] [place] [address] Feb, [place] [address] [address] Feb, Type 2 diabetes mellitus wit hout complication, without long-term current use of insulin E11.9 ; ARIAS on CPAP G47.33 and Preoperative evaluation to rule out surgical contraindication Z01.818 [place] [address] [facility] [id number] [address] [place] [address] Feb, Paranoid schizophrenia F20.0 and Depression with anxiety F41.8 [place] [address] [place] [address] Jan, [place] [address] [facility] [id number] [address] [place] [address] Jan, Paranoid schizophrenia F20.0 and Depression with anxiety F41.8 [place] [address] [place] [address] [place] [id number] 17 Jan, 2016 [facility] [address] [id number] [address] [place] [id number] 14 Jan, 2016 Muscle strain T14.8 [facility] [address] [id number] [address] [place] [address] 10 Jan, 2016 Paranoid schizophrenia F20.0 [facility] [address] [id number] [address] [place] [id number] 07 Jan, 2016 [facility] [address] [id number] [address] [place] [id number] 05 Jan, 2016 Paranoid schizophrenia F20.0 and Depression with anxiety F41.8 [facility] [address] [id number] [address] [place] [id number] 05 Jan, 2016 [facility] [address] [id number] [address] [place] [phone] Jan, [facility] [address] [id number] [address] [place] [id number] 28 Dec, 2015 [facility] [address] [id number] [address] [place] [phone] 23 Dec, 2015 Paranoid schizophrenia F20.0 [facility] [address] [id number] [address] [place] [id number] 16 Dec, 2015 Paranoid schizophrenia F20.0 and Depression with anxiety F41.8 [facility] [address] [id number] [address] [place] [id number] 31 Nov, 2015 [facility] [address] [id number] [address] [place] [id number] 24 Nov, 2015 Paranoid schizophrenia F20.0 [facility] [address] [id number] [address] [place] [address] Nov, Paranoid schizophrenia F20.0 and Depression with anxiety F41.8 [facility] [address] [id number] [address] [place] [address] Nov, Type 2 diabetes mellitus wit hout complication, without long-term current use of insulin E11.9 ; Paranoid schizophrenia F20.0 ; Chronic obstructive pulmonary disease, unspecified COPD type J44.9 ; Morbid obesity due to excess calories E66.01 and Parkinsonian tremor G20 [place] [address] [id number] [address] [place] [address] Nov, [place] [address] [id number] [address] [place] [address] Oct, Paranoid schizophrenia F20.0 [place] [address] [id number] [address] [place] [address] Oct, Paranoid schizophrenia F20.0 [place] [address] [id number] [address] [place] [id number] Oct, Paranoid schizophrenia F20.0 and Depression with anxiety F41.8 [place] [address] [id number] [address] [place] [id number] Oct, [place] [address] [id number] [address] [place] [id number] Oct, Paranoid schizophrenia F20.0 and Depression with anxiety F41.8 [place] [address] [facility] [id number] [address] [place] [id number] Oct, Nasal sore J34.89 [place] [address] [facility] [id number] [address] [place] [id number] Oct, Type 2 diabetes mellitus wit hout complication, without long-term current use of insulin E11.9 ; Depression with anxiety F41.8 ; Hypothyroidism, unspecified type E03.9 and History of lupus Z87.39 [place] [address] [id number] [address] [place] [address] Oct, [place] [address] [facility] [id number] [address] [place] [id number] Oct, Type 2 diabetes mellitus wit hout [...] R60.9 and History of lupus Z87.39 [facility] [address] [id number] [address] [place] [id number] Feb, [facility] [address] [id number] [address] [place] [id number] Jan, [facility] [address] [facility] [id number] [address] [place] [phone] Jan, [facility] [address] [facility] [id number] [address] [place] [id number] Jan, [facility] [address] [id number] [address] [place] [id number] Dec, [facility] [address] [facility] [id number] [address] [place] [phone] Nov, [facility] [address] [facility] [id number] [address] [place] [phone] Nov, [facility] [address] [facility] [id number] [address] [place] [id number] Oct, [facility] [address] [id number] [address] [place] [id number] Oct, [facility] [address] [facility] [id number] [address] [place] [id number] Oct, [facility] [address] [facility] [id number] [address] [place] [id number] Sep, Allergic rhinitis 477.9 [facility] [address] [facility] [id number] [address] [place] [id number] Sep, Rhinitis, allergic 477.9 [facility] [address] [id number] [address] [place] [address], [place] [id number] 10 Sep, 2014 Rhinitis, allergic 477.9 [facility] [address] [id number] [address] [place] [address], [place] [id number] Sep, [facility] [address] [id number] [address] [place] [address], [place] [id number] August, [facility] [address] [id number] [address] [place] [address], [place] [id number] August, [facility] [address] [id number] [address] [place] [address], [place] [id number] August, [facility] [address] [id number] [address] [place] [address], [place] [id number] 28 Jul, 2014 [facility] [address] [id number] [address] [place] [address], [place] [id number] 14 Jul, 2014 [facility] [address] [id number] [address] [place] [id number] Jul, [facility] [address] [id number] [address] [place] [address], [place] [id number] 16 Jun, 2014 [facility] [address] [id number] [address] [place] [id number] 16 Jun, 2014 [facility] [address] [id number] [address] [place] [address], [place] [id number] Jun, [facility] [address] [id number] [address] [place] [id number] Jun, [facility] [address] [id number] [address] [place] [address], [place] [id number] Jun, [facility] [address] [id number] [address] [place] [address], [place] [id number] Jun, [facility] [address] [id number] [address] [place] [id number] 02 Jun, 2014 [facility] [address] [id number] [facility] [id number] Jun, [facility] [address] [id number] [address] [place] [address], [place] [id number] May, 2014 [facility] [address] [id number] [address] [place] [address], [place] [id number] May, 2014 [facility] [address] [id number] [address] [place] [address], [place] [id number] May, 2014 [facility] [address] [id number] [address] [place] [address], [place] [address] May, [facility] [address] [id number] [address] [place] [address], [place] [address] Apr, [facility] [address] [id number] [address] [place] [address], [place] [address] Mar, [facility] [address] [id number] [address] [place] [address], [place] [address] Mar, [facility] [address] [id number] [address] [place] [address], [place] [address] Mar, [facility] [address] [id number] [address] [place] [address], [place] [address] Mar, [facility] [address] [id number] [address] [place] [address], [place] [address] Mar, [facility] [address] [id number] [address] [place] [address], [place] [address] Mar, [facility] [address] [id number] [address] [place] [address], [place] [id number] 05 Mar, 2014 [facility] [address] [id number] [address] [place] [address], [place] [address] Mar, [facility] [address] [id number] [address] [place] [address], [place] [address] Mar, [facility] [address] [id number] [address] [place] [address], [place] [address] Feb, [facility] [address] [id number] [address] [place] [address], [place] [address] Feb, [facility] [address] [id number] [address] [place] [address], [place] [id number] 17 Feb, 2014 [facility] [address] [id number] [address] [place] [address], [place] [address] Feb, [facility] [address] [id number] [address] [place] [address], [place] [address] Feb, [facility] [address] [id number] [address] [place] [address], [place] [address] Feb, [facility] [address] [id number] [address] [place] [address], [place] [address] Feb, [facility] [address] [id number] [address] [place] [address], [place] [address] Feb, [facility] [address] [id number] [address] [place] [address], [place] [address] 23 Jan, 2014 [facility] [address] [id number] [address] [place] [address], [place] [id number] 23 Jan, 2014 [facility] [address] [id number] [address] [place] [address], [place] [address] 16 Jan, 2014 [facility] [address] [id number] [address] [place] [address], [place] [address] 16 Jan, 2014 [facility] [address] [id number] [address] [place] [address], [place] [id number] 15 Jan, 2014 [facility] [address] [id number] [address] [place] [address], [place] [id number] 15 Jan, 2014 [facility] [address] [id number] [address] [place] [address], [place] [address] 14 Jan, 2014 [facility] [address] [id number] [address] [place] [address], [place] [address] 14 Jan, 2014 [facility] [address] [id number] [address] [place] [address], [place] [address] 14 Jan, 2014 [facility] [address] [id number] [address] [place] [address], [place] [id number] 14 Jan, 2014 [facility] [address] [id number] [address] [place] [address], [place] [id number] 18 Dec, 2013 [facility] [address] [id number] [address] [place] [address], [place] [address] 18 Dec, 2013 [facility] [address] [id number] [address] [place] [address], [place] [address] Dec, [facility] [address] [id number] [address] [place] [address], [place] [address] Dec, [facility] [address] [id number] [address] [place] [address], [place] [address] Nov, [facility] [address] [id number] [address] [place] [address], [place] [address] Nov, [facility] [address] [id number] [address] [place] [address], [place] [address] Nov, [facility] [address] [id number] [address] [place] [address], [place] [address] Nov, [facility] [address] [id number] [address] [place] [address], [place] [address] Nov, [facility] [address] [id number] [address] [place] [address], [place] [address] Oct, [facility] [address] [id number] [address] [place] [address], [place] [address] Oct, [facility] [address] [id number] [address] [place] [address], [place] [address] Oct, [facility] [address] [id number] [address] [place] [address], [place] [address] Oct, [facility] [address] [id number] [address] [place] [address], [place] [address] Sep, [facility] [address] [id number] [facility] [address] Sep, [facility] [address] [id number] [address] [place] [address], [place] [address] Sep, [facility] [address] [id number] [address] [place] [address], [place] [address] Sep, [facility] [address] [id number] [address] [place] [address], [place] [address] Sep, [facility] [address] [id number] [address] [place] [address], [place] [address] Sep, [facility] [address] [id number] [address] [place] [address], [place] [address] Sep, [facility] [address] [id number] [address] [place] [address], [place] [address] Sep, [facility] [address] [id number] [address] [place] [address], [place] [address] August, [facility] [address] [id number] [address] [place] [address], [place] [address] August, [facility] [address] [id number] [address] [place] [address], [place] [address] August, [facility] [address] [id number] [address] [place] [address], [place] [address] August, [facility] [address] [id number] [address] [place] [address], [place] [address] August, [facility] [address] [id number] [address] [place] [address], [place] [address] August, [facility] [address] [id number] [address] [place] [address], [place] [address] August, [facility] [address] [id number] [address] [place] [address], [place] [address] Jul, [facility] [address] [id number] [facility] [address] Jul, [facility] [address] [id number] [facility] [address] Jul, [facility] [address] [id number] [facility] [address] Jul, [facility] [address] [id number] [address] [place] [address], [place] [address] Jul, [facility] [address] [id number] [facility] [address] Jul, [facility] [address] [id number] [address] [place] [address], [place] [address] Jul, [facility] [address] [id number] [address] [place] [address], [place] [id number] Jul, [facility] [address] [id number] [address] [place] [address], [place] [address] Jul, [facility] [address] [id number] [address] [place] [address], [place] [address] Jul, [facility] [address] [id number] [address] [place] [address], [place] [address] Jul, [facility] [address] [id number] [address] [place] [address], [place] [address] Jul, [facility] [address] [id number] [address] [place] [address], [place] [address] Jun, [facility] [address] [id number] [address] [place] [address], [place] [address] 31 Jun, 2013 [facility] [address] [id number] [address] [place] [address], [place] [address] Jun, [facility] [address] [id number] [address] [place] [address], [place] [address] Jun, [facility] [address] [id number] [address] [place] [address], [place] [address] Jun, [facility] [address] [id number] [address] [place] [address], [place] [address] May, [facility] [address] [id number] [address] [place] [address], [place] [address] May, [facility] [address] [id number] [address] [place] [address], [place] [address] May, [facility] [address] [id number] [address] [place] [address], [place] [address] May, [facility] [address] [id number] [address] [place] [address], [place] [address] May, [facility] [address] [id number] [address] [place] [address], [place] [address] May, [facility] [address] [id number] [address] [place] [address], [place] [address] May, [facility] [address] [id number] [address] [place] [address], [place] [address] May, [facility] [address] [id number] [address] [place] [address], [place] [address] Mar, [facility] [address] [id number] [address] [place] [address], [place] [address] Mar, [facility] [address] [id number] [address] [place] [address], [place] [address] Mar, [facility] [address] [id number] [address] [place] [address], [place] [address] Mar, [facility] [address] [id number] [address] [place] [address], [place] [address] Mar, [facility] [address] [id number] [address] [place] [address], [place] [address] Mar, [facility] [address] [id number] [address] [place] [address], [place] [address] Feb, [facility] [address] [id number] [address] [place] [address], [place] [address] 15 Feb, 2013 [facility] [address] [id number] [address] [place] [address], [place] [address] Jan, [facility] [address] [id number] [address] [place] [address], [place] [address] Jan, [facility] [address] [id number] [address] [place] [address], [place] [address] Jan, [facility] [address] [id number] [address] [place] [address], [place] [address] Jan, [facility] [address] [id number] [address] [place] [address], [place] [address] Jan, [facility] [address] [id number] [address] [place] [address], [place] [address] Jan, [facility] [address] [id number] [address] [place] [address], [place] [address] Jan, [facility] [address] [id number] [address] [place] [address], [place] [address] Jan, [facility] [address] [id number] [address] [place] [address], [place] [address] Jan, [facility] [address] [id number] [address] [place] [address], [place] [address] Jan, [facility] [address] [id number] [address] [place] [address], [place] [address] Dec, [facility] [address] [id number] [address] [place] [address], [place] [address] Nov, [facility] [address] [id number] [address] [place] [address], [place] [address] Nov, [facility] [address] [id number] [address] [place] [address], [place] [address] Nov, [facility] [address] [id number] [address] [place] [address], [place] [address] Oct, [facility] [address] [id number] [address] [place] [id number] Oct, [facility] [address] [id number] [address] [place] [id number] August, [facility] [address] [id number] [address] [place] [id number] Apr, [facility] [address] [id number] [address] [place] [id number] Apr, [facility] [address] [id number] [address] [place] [id number] Feb, [facility] [address] [id number] [address] [place] [id number] Feb, [facility] [address] [id number] [address] [place] [id number] Dec, [facility] [address] [id number] [address] [place] [id number] Dec, [facility] [address] [id number] [address] [place] [id number] Oct, [facility] [address] [id number] [address] [place] [id number] Oct, [facility] [address] [id number] [address] [place] [id number] Oct, [facility] [address] [id number] [address] [place] [id number] Jul, IMMUNIZATIONS No Known Immunizations SOCIAL HISTORY [...] hospitalizations for psychosis/mental illness, last one in [place] at [facility] 4 years ago Hospitalization History broken ankle 08/2018
--- OUTSIDE RECORDS SUMMARY | 2019-07-07 04:17 | XMS REPORT ---
Author Author Alayna MONTERROSO Organization [facility] Address [address] [place] [address] Care Team Providers Care Skin Former Name Role Phone PADMINI MONTERROSO Unavailable PROBLEMS Type Condition ICD9-CM Code QUF22-LY Code Onset Dates Condition S tatus SNOMED Code Problem Depression with anxiety F41.8 Active 474311860 Problem Morbid obesity due to excess calories E66.01 Active 492587437 Problem Chronic obstructive pulmonary disease, unspecified COPD ty pe J44.9 Active 25143911 Problem Paranoid schizophrenia F20.0 Active 05194266 Problem Chronic pain syndrome G89.4 Active 467464499 Problem History of lupus Z87.39 Active 312 205128 Problem Type 2 diabetes mellitus wit hout complication, without long-term current use of insulin E11.9 Active 165531898 Problem Dyslipidemia E78.5 Active 4536732 07 Problem Migraine without aura and without status migrain osus, not intractable G43.009 Active 202029220 Problem Primary insomnia F51.01 Active 397 2004 Problem Schizoaffective disorder, depressive type F25.1 Active 46331857 Problem Menopausal syndrome (hot flashes) N95.1 Active 540542468 Problem DM neuro manif type II E11.49 Active 66815140 Problem Other seasonal allergic rhinitis J30.2 Active 292564790 Problem Other allergic rhinitis J30.89 Active 057733110 Problem Gastroesophageal reflux disease, esophagitis pre sence not specified K21.9 Active 281797709 Problem Tobacco abuse Z72.0 Active 649894 000 Problem Essential hypertension I10 Active 50444479 Problem Hypothyroidism (acquired) E03.9 Acti ve 574017340 Problem COPD exacerbation J44.1 Active 19 2671686 Problem Allergic rhinitis, unspecified seasonality, unspecifie d trigger J30.9 Active 10295314 Problem Gastroesophageal reflux disease without esophagitis K21.9 Active 395920341 Problem Constipation by delayed colonic transit K59.01 Active 63828591 Problem OAB (overactive bladder) N32.81 Activ e 184939907 Problem Seasonal allergic rhinitis due to other allergic trigger J30.89 Active 331230695 Problem Seasonal allergic rhinitis due to pollen J30.1 Active 04054925 Problem 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, without long-term current use of insulin E11.610 Active 269837535 Problem Diabetic polyneuropathy associated with type 2 d iabetes mellitus E11.42 Active 406542802 Problem Cigarette nicotine dependence without complication F17.210 Active 20615851 ALLERGIES No Information ENCOUNTERS Encounter Location Date Diagnosis [facility] [address] [id number] [address] [place] [phone] Dec, [facility] [address] [id number] [address] [place] [phone] Dec, [facility] [address] [facility] [id number] [address] [place] [phone] Nov, Paranoid schizophrenia F20.0 [facility] [address] [facility] [id number] [address] [place] [phone] Nov, [facility] [address] [facility] [id number] [address] [place] [phone] Nov, [facility] [address] [facility] [id number] [address] [place] [phone] Nov, [facility] [address] [facility] [id number] [address] [place] [phone] Nov, Encounter for comprehensive diabetic foot examination, type 2 diabetes mellitus E11.9 and Morbid obesity E66.01 [facility] [address] [id number] [address] [place] [phone] Nov, [facility] [address] [facility] [id number] [address] [place] [phone] Nov, [facility] [address] [facility] [id number] [address] [place] [phone] Nov, [facility] [address] [facility] [id number] [address] [place] [phone] Nov, Schizoaffective disorder, de pressive type F25.1 [facility] [address] [facility] [id number] [address] [place] [phone] Nov, Constipation by delayed colo james transit K59.01 [facility] [address] [facility] [id number] [address] [place] [phone] Oct, [facility] [address] [facility] [id number] [address] [place] [phone] Oct, [facility] [address] [facility] [id number] [address] [place] [phone] Oct, [facility] [address] [facility] [id number] [address] [place] [phone] Oct, Chronic obstructive pulmonar y disease, unspecified COPD type J44.9 [facility] [address] [facility] [id number] [address] [place] [phone] Oct, [facility] [address] [facility] [id number] [address] [place] [phone] Sep, Paranoid schizophrenia F20.0 [facility] [address] [facility] [id number] [address] [place] [phone] Sep, [facility] [address] [facility] [id number] [address] [place] [phone] Sep, [facility] [address] [place] [id number] [address] [place] [phone] Sep, Encounter for immunization Z 23 [facility] [address] [facility] [id number] [address] [place] [phone] Sep, [facility] [address] [place] [id number] [address] [place] [id number] Sep, Closed fracture of right ank le, sequela S82.891S ; Morbid obesity E66.01 and Heat rash L74.0 [facility] [address] [facility] [id number] [address] [place] [phone] Sep, Schizoaffective disorder, de pressive type F25.1 [facility] [address] [id number] [address] [place] [phone] 18 Sep, 2018 [facility] [address] [id number] [address] [place] [phone] Sep, [facility] [address] [id number] [address] [place] [phone] 14 Sep, 2018 [facility] [address] [id number] [address] [place] [phone] 13 Sep, 2018 [facility] [address] [id number] [address] [place] [phone] Sep, [facility] [address] [id number] [address] [place] [phone] Sep, [facility] [address] [id number] [address] [place] [phone] Sep, [facility] [address] [id number] [address] [place] [phone] Sep, [facility] [address] [id number] [address] [place] [phone] Sep, [facility] [address] [id number] [address] [place] [phone] August, Paranoid schizophrenia F20.0 [facility] [address] [id number] [address] [place] [phone] August, [facility] [address] [id number] [address] [place] [phone] August, [facility] [address] [id number] [address] [place] [phone] August, [facility] [address] [facility] [id number] [address] [place] [phone] August, Type 2 diabetes mellitus wit hout complication, without long-term current use of insulin E11.9 ; Closed fracture of right ankle, initial encounter S82.891A ; Constipation by delayed colonic transit K59.01 ; Osteoporosis with pathological fracture, initial encounter M80.00XA ; Encounter for immunization Z23 and Morbid obesity E66.01 [facility] [address] [facility] [id number] [address] [place] [phone] August, [facility] [address] [facility] [id number] [address] [place] [phone] August, [facility] [address] [facility] [id number] [address] [place] [phone] August, Acquired deformity of muscul oskeletal system, unspecified M95.9 [facility] [address] [facility] [id number] [address] [place] [phone] August, Paranoid schizophrenia F20.0 [facility] [address] [id number] [address] [address] August, [facility] [address] [facility] [id number] [address] [place] [phone] Jul, [facility] [address] [place] [id number] [address] [place] [phone] Jul, Diabetic polyneuropathy asso ciated with type 2 diabetes mellitus E11.42 ; Paranoid schizophrenia F20.0 ; Preoperative clearance Z01.818 and Morbid obesity E66.01 [facility] [address] [facility] [id number] [address] [place] [address] Jul, Paranoid schizophrenia F20.0 [facility] [address] [facility] [id number] [address] [place] [phone] Jul, [facility] [address] [facility] [id number] [address] [place] [phone] Jul, [facility] [address] [place] [id number] [address] [place] [address] Jul, Cigarette nicotine dependenc e without complication F17.210 [facility] [address] [place] [id number] [address] [place] [phone] Jul, Type 2 diabetes mellitus wit hout complication, without long-term current use of insulin E11.9 and Hypothyroidism (acquired) E03.9 [place] [address] [facility] [id number] [address] [place] [address] Jul, Encounter for Medicare laureen wellness exam Z00.00 ; Morbid obesity due to excess calories E66.01 ; Diabetic polyneuropathy associated with type 2 diabetes mellitus E11.42 ; Chronic obstructive pulmonary disease, unspecified COPD type J44.9 ; Schizoaffective disorder, depressive type F25.1 ; Hypothyroidism (acquired) E03.9 and Morbid obesity E66.01 [place] [address] [facility] [id number] [address] [place] [phone] Jun, Gastroesophageal reflux dise ase without esophagitis K21.9 [place] [address] [facility] [id number] [address] [place] [phone] Jun, Paranoid schizophrenia F20.0 [place] [address] [facility] [id number] [address] [place] [phone] Jun, Schizoaffective disorder, de pressive type F25.1 [place] [address] [facility] [id number] [address] [place] [phone] Jun, [place] [address] [facility] [id number] [address] [place] [phone] Jun, Schizoaffective disorder, de pressive type F25.1 [place] [address] [facility] [id number] [address] [place] [phone] Jun, Cigarette nicotine dependenc e without complication F17.210 [place] [address] [id number] [address] [place] [phone] 18 Jun, 2018 Type 2 diabetes mellitus wit hout complication, without long-term current use of insulin E11.9 [place] [id number] [facility] [id number] [address] [place] [phone] 15 Jun, 2018 [place] [address] [facility] [id number] [address] [place] [phone] Jun, [facility] [address] [address] Jun, [facility] [address] [address] Jun, [facility] [address] [address] Jun, [facility] [address] [address] Jun, Paranoid schizophrenia F20.0 ; Type 2 diabetes mellitus without complication, without long-term current use of insulin E11.9 ; Hypothyroidism (acquired) E03.9 and Morbid obesity E66.01 [place] [address] [id number] 28 May, 2018 Paranoid schizophrenia F20.0 [place] [address] [address] 20 May, 2018 Hypothyroidism (acquired) E0 3.9 and Dyslipidemia E78.5 [place] [address] [address] 19 May, 2018 Cigarette nicotine dependenc e without complication F17.210 [place] [address] [address] 18 May, 2018 [facility] [address] [address] 14 May, 2018 Type 2 diabetes mellitus wit hout complication, without long-term current use of insulin E11.9 ; Essential hypertension I10 ; Hypothyroidism (acquired) E03.9 and Dyslipidemia E78.5 [place] [address] [address] 13 May, 2018 [place] [address] [address] 08 May, 2018 Schizoaffective disorder, de pressive type F25.1 [place] [address] [address] 08 May, 2018 Paranoid schizophrenia F20.0 [place] [address] [address] 07 May, 2018 [facility] [address] [place] [address] 07 May, 20 19 [place] [address] [address] May, [place] [address] [address] May, Type 2 diabetes mellitus wit hout complication, without long-term current use of insulin E11.9 ; Essential hypertension I10 ; Hypothyroidism (acquired) E03.9 and Dyslipidemia E78.5 [place] [address] [address] May, [place] [address] [address] May, Acute nasopharyngitis J00 [facility] [address] [address] May, Allergic rhinitis, unspecifi ed seasonality, unspecified trigger J30.9 [place] [address] [address] May, [facility] [address] [address] Apr, Schizoaffective disorder, de pressive type F25.1 [place] [address] [address] Apr, [facility] [address] [address] Apr, Cigarette nicotine dependenc e without complication F17.210 [place] [address] [address] Apr, [facility] [address] [facility] [id number] [address] [place] [address] Apr, Cigarette nicotine dependenc e without complication F17.210 [facility] [address] [facility] [id number] [address] [place] [address] Apr, [facility] [address] [facility] [id number] [address] [place] [address] Apr, Migraine without aura and wi thout status migrainosus, not intractable G43.009 [facility] [address] [facility] [id number] [address] [place] [address] Apr, Migraine without aura and wi thout status migrainosus, not intractable G43.009 [facility] [address] [facility] [id number] [address] [place] [address] Mar, Schizoaffective disorder, de pressive type F25.1 ; BMI 45.0-49.9, adult Z68.42 and BMI 40.0-44.9, adult Z68.41 [facility] [address] [facility] [id number] [address] [place] [phone] Mar, Primary insomnia F51.01 [facility] [address] [place] [id number] [address] [place] [address] Mar, [facility] [address] [place] [id number] [address] [place] [phone] Feb, Primary insomnia F51.01 [facility] [address] [facility] [id number] [address] [place] [address] Feb, [facility] [address] [place] [id number] [address] [place] [phone] Jan, Schizoaffective disorder, de pressive type F25.1 and BMI 45.0-49.9, adult Z68.42 [facility] [address] [facility] [id number] [address] [place] [address] Jan, [place] [address] [place] [id number] [address] [place] [address] 16 Jan, 2018 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, without long-term current use of insulin E11.610 ; Menopausal syndrome (hot flashes) N95.1 and BMI 40.0-44.9, adult Z68.41 [place] [address] [place] [id number] [place] [phone] 11 Jan, 2018 Paranoid schizophrenia F20.0 [place] [address] [place] [id number] [place] [phone] Jan, [place] [address] [place] [id number] [place] [address] 04 Jan, 2018 Schizoaffective disorder, de pressive type F25.1 [place] [address] [address] Jan, [place] [address] [place] [id number] [place] [address] Jan, Chronic obstructive pulmonar y disease, unspecified COPD type J44.9 ; BMI 45.0-49.9, adult Z68.42 ; Type 2 diabetes mellitus without complication, without long-term current use of insulin E11.9 ; Hypothyroidism (acquired) E03.9 ; Encounter for immunization Z23 ; Gastroesophageal reflux disease without esophagitis K21.9 ; Primary insomnia F51.01 and Acute nasopharyngitis J00 [place] [address] [place] [id number] [place] [address] Dec, [place] [address] [place] [id number] [place] [address] 21 Dec, 2017 Schizoaffective disorder, de pressive type F25.1 and BMI 45.0-49.9, adult Z68.42 [place] [address] [place] [id number] [place] [address] Dec, [place] [address] [place] [id number] [place] [address] 18 Dec, 2017 [facility] [address] [facility] [id number] [address] [place] [address] 18 Dec, 2017 Acute non-recurrent frontal sinusitis J01.10 [facility] [address] [id number] [address] [place] [address] 18 Dec, 2017 Acute non-recurrent frontal sinusitis J01.10 ; Weakness of left leg R29.898 ; At high risk for falls Z91.81 and BMI 45.0-49.9, adult Z68.42 [facility] [address] [id number] [address] [place] [address] Dec, [facility] [address] [id number] [address] [place] [address] Dec, [facility] [address] [facility] [id number] [address] [place] [phone] Dec, Schizoaffective disorder, de pressive type F25.1 [facility] [address] [id number] [address] [place] [phone] Dec, Acute nasopharyngitis J00 [facility] [address] [id number] [address] [place] [phone] 05 Dec, 2017 Schizoaffective disorder, de pressive type F25.1 [facility] [address] [id number] [address] [place] [address] Dec, [facility] [address] [facility] [id number] [address] [place] [address] Nov, Schizoaffective disorder, de pressive type F25.1 and BMI 45.0-49.9, adult Z68.42 [facility] [address] [id number] [address] [place] [address] Nov, [facility] [address] [facility] [id number] [address] [place] [address] Nov, [facility] [address] [facility] [id number] [address] [place] [address] Nov, Schizoaffective disorder, de pressive type F25.1 [place] [address] [place] [id number] [address] [place] [address] 16 Nov, 2017 Well woman exam Z01.419 ; BM I 45.0-49.9, adult Z68.42 ; Screening breast examination Z12.31 and Dietary counseling and surveillance Z71.3 [place] [address] [place] [id number] [address] [place] [address] 10 Nov, 2017 Paranoid schizophrenia F20.0 [place] [address] [place] [id number] [address] [place] [address] 09 Nov, 2017 Gastroesophageal reflux dise ase, esophagitis presence not specified K21.9 [place] [address] [place] [id number] [address] [place] [address] Oct, Paranoid schizophrenia F20.0 [id number] [place] [address] Oct, Chronic pain syndrome G89.4 and Schizoaf fective disorder, depressive type F25.1 [place] [address] [place] [id number] [address] [place] [address] Oct, Chronic pain syndrome G89.4 and Schizoaffective disorder, depressive type F25.1 [place] [address] [place] [id number] [address] [place] [address] 16 Oct, 2017 Type 2 diabetes mellitus wit hout complication, without long-term current use of insulin E11.9 [place] [address] [place] [id number] [address] [place] [phone] 12 Oct, 2017 Essential hypertension I10 a nd DM neuro manif type II E11.49 [place] [address] [place] [id number] [address] [place] [address] 11 Oct, 2017 [place] [address] [place] [id number] [address] [place] [address] Oct, Schizoaffective disorder, de pressive type F25.1 and BMI 45.0-49.9, adult Z68.42 [facility] [address] [facility] [id number] [address] [place] [address] Oct, [facility] [address] [facility] [id number] [address] [place] [phone] Oct, Paranoid schizophrenia F20.0 [facility] [address] [facility] [id number] [address] [place] [phone] Oct, 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, without long-term current use of insulin E11.610 ; Essential hypertension I10 ; Hypothyroidism (acquired) E03.9 ; Chronic obstructive pulmonary disease, unspecified COPD type J44.9 and Diabetic polyneuropathy associated with type 2 diabetes mellitus E11.42 [facility] [address] [facility] [id number] [address] [place] [phone] Sep, Paranoid schizophrenia F20.0 [facility] [address] [facility] [id number] [address] [place] [id number] Sep, Paranoid schizophrenia F20.0 and BMI 45.0-49.9, adult Z68.42 [facility] [address] [place] [id number] [address] [place] [id number] Sep, Schizoaffective disorder, de pressive type F25.1 [facility] [address] [place] [id number] [address] [place] [phone] Sep, [facility] [address] [place] [id number] [address] [place] [id number] Sep, Paranoid schizophrenia F20.0 [facility] [address] [facility] [id number] [address] [place] [phone] Sep, [facility] [address] [place] [id number] [address] [place] [phone] Sep, Hypothyroidism (acquired) E0 3.9 [facility] [address] [place] [id number] [address] [place] [id number] 05 Sep, 2017 [facility] [address] [id number] August, Schizoaffective disorder, de pressive type F25.1 [facility] [address] [id number] August, [facility] [address] [place] [id number] [place] [phone] August, [facility] [address] [id number] August, [place] [address] [id number] August, Paranoid schizophrenia F20.0 [place] [address] [place] [id number] [place] [phone] August, History of lupus Z87.39 and Chronic pain syndrome G89.4 [place] [address] [id number] August, [facility] [address] [id number] August, Seasonal allergic rhinitis, unspecified trigger J30.2 and BMI 45.0-49.9, adult Z68.42 [place] [address] [id number] Jul, Schizoaffective disorder, de pressive type F25.1 [facility] [address] [id number] Jul, [place] [address] [id number] Jul, Hypothyroidism (acquired) E0 3.9 [facility] [address] [place] [id number] [place] [phone] Jul, Chronic obstructive pulmonar y disease, unspecified COPD type J44.9 and Type 2 diabetes mellitus without complication, without long-term current use of insulin E11.9 [facility] [address] [facility] [id number] [address] [place] [id number] Jul, Paranoid schizophrenia F20.0 [facility] [address] [address] Jun, Hypothyroidism (acquired) E0 3.9 and Seasonal allergic rhinitis due to pollen J30.1 [facility] [address] [facility] [id number] [address] [place] [address] Jun, Shortness of breath at rest R06.02 ; COPD exacerbation J44.1 and BMI 45.0-49.9, adult Z68.42 [facility] [address] [address] Jun, [facility] [address] [place] [id number] [place] [phone] Jun, Paranoid schizophrenia F20.0 ; Depression with anxiety F41.8 and BMI 45.0-49.9, adult Z68.42 [facility] [address] [place] [address] 20 Jun, 2017 Schizoaffective disorder, de pressive type F25.1 [facility] [address] [facility] [id number] [address] [place] [id number] Jun, Dental caries K02.9 [facility] [address] [place] [id number] [address] [place] [id number] Jun, Paranoid schizophrenia F20.0 [facility] [address] [facility] [id number] [address] [place] [address] May, Migraine without aura and wi thout status migrainosus, not intractable G43.009 ; DM neuro manif type II E11.49 and Type 2 diabetes mellitus without complication, without long-term current use of insulin E11.9 [facility] [address] [facility] [id number] [address] [place] [phone] May, Migraine without aura and wi thout status migrainosus, not intractable G43.009 [facility] [address] [place] [address] May, Depression with anxiety F41. 8 [facility] [address] [place] [id number] [address] [place] [address] [id number] May, [facility] [address] [place] [id number] [place] [phone] May, [facility] [address] [address] May, [place] [address] [address] May, Hypothyroidism (acquired) E0 3.9 [place] [address] [address] May, Paranoid schizophrenia F20.0 [place] [address] [address] May, Type 2 diabetes mellitus wit hout [...] N32.81 and Controlled substance agreement signed Z79.899 [place] [address] [address] May, Controlled substance agreeme nt signed Z79.899 [place] [address] [address] Apr, [facility] [id number] [place] [id number] Apr, Dental examination Z01.20 [facility] [address] [facility] [id number] [address] [place] [address] Apr, Paranoid schizophrenia F20.0 [facility] [address] [facility] [id number] [address] [place] [phone] Apr, Hypertension, unspecified ty pe I10 [facility] [address] [facility] [id number] [address] [place] [address] Apr, Paranoid schizophrenia F20.0 [facility] [address] [facility] [id number] [address] [place] [id number] Apr, [facility] [address] [facility] [id number] [address] [place] [phone] Apr, Tobacco abuse Z72.0 [facility] [address] [facility] [id number] [address] [place] [address] Apr, [facility] [address] [facility] [id number] [address] [place] [phone] Mar, [facility] [address] [facility] [id number] [address] [place] [phone] Mar, Paranoid schizophrenia F20.0 and BMI 45.0-49.9, adult Z68.42 [facility] [address] [facility] [id number] [address] [place] [phone] Mar, Schizoaffective disorder, de pressive type F25.1 [facility] [address] [facility] [id number] [address] [place] [phone] Mar, [facility] [address] [facility] [id number] [address] [place] [phone] Mar, Hypothyroidism, unspecified type E03.9 [facility] [address] [facility] [id number] [address] [place] [phone] Mar, Schizoaffective disorder, de pressive type F25.1 [facility] [address] [place] [id number] [address] [place] [address] Feb, Gastroenteritis K52.9 and BM I 45.0-49.9, adult Z68.42 [facility] [address] [address] Feb, [facility] [address] [address] Feb, [place] [address] [address] Feb, [place] [address] [address] Feb, [place] [address] [address] Feb, Paranoid schizophrenia F20.[address] [address] Feb, Gastroesophageal reflux dise ase without esophagitis K21.9 ; Other seasonal allergic rhinitis J30.2 ; Other allergic rhinitis J30.89 ; Tobacco abuse Z72.0 and BMI 40.0-44.9, adult Z68.[address] [address] Feb, Onychomycosis B35.1 ; Callus of foot L84 and DM neuro manif type II E11.49 [place] [address] [address] Jan, Chronic allergic rhinitis J3 0.[address] [address] Jan, [address] [address] Jan, Schizoaffective disorder, de pressive type F25.[address] [address] Jan, [facility] [address] [facility] [id number] [address] [place] [phone] 07 Jan, 2017 Sore throat J02.9 and Season al allergic rhinitis due to other allergic trigger J30.89 [facility] [address] [facility] [id number] [address] [place] [id number] 04 Jan, 2017 [facility] [address] [place] [id number] [address] [place] [id number] 04 Jan, 2017 [facility] [address] [facility] [id number] [address] [place] [address] Jan, Chronic allergic rhinitis J3 0.9 [place] [address] [place] [id number] [address] [place] [phone] 27 Dec, 2016 Paranoid schizophrenia F20.0 ; Primary insomnia F51.01 and Schizoaffective disorder, depressive type F25.1 [place] [address] [place] [address] Dec, Chronic pain syndrome G89.4 ; Cervicalgia of omubszwf-dvmyklh-auidk region M54.2 ; Menopausal syndrome (hot flashes) N95.1 and Encounter for immunization Z23 [facility] [address] [place] [id number] [address] [place] [id number] 14 Dec, 2016 [facility] [address] [place] [id number] [address] [place] [id number] 13 Dec, 2016 [facility] [address] [place] [id number] [address] [place] [id number] 08 Dec, 2016 Paranoid schizophrenia F20.0 [facility] [address] [facility] [id number] [address] [place] [address] Dec, Schizoaffective disorder, de pressive type F25.1 [facility] [address] [facility] [id number] [address] [place] [address] Nov, Hypothyroidism, unspecified type E03.9 [facility] [address] [place] [id number] [address] [place] [address] Nov, Acute seasonal allergic rhin itis due to other allergen J30.89 [facility] [address] [facility] [id number] [address] [place] [address] Nov, [place] [address] [facility] [id number] [address] [place] [address] Nov, Hypothyroidism, unspecified type E03.9 and Other elevated white blood cell (WBC) count D72.828 [place] [address] [facility] [id number] [address] [place] [address] Nov, Schizoaffective disorder, de pressive type F25.1 [place] [address] [place] [id number] [place] [phone] Nov, Paranoid schizophrenia F20.0 [place] [address] [place] [id number] [place] [address] Nov, Type 2 diabetes mellitus wit hout complication, without long-term current use of insulin E11.9 ; Morbid obesity due to excess calories E66.01 and Chronic pain syndrome G89.4 [place] [address] [place] [id number] [place] [address] Oct, Paranoid schizophrenia F20.0 [place] [address] [facility] [id number] [address] [place] [address] Oct, [place] [address] [place] [id number] [address] [place] [address] Oct, Schizoaffective disorder, de pressive type F25.1 [place] [address] [facility] [id number] [address] [place] [address] Oct, Hypothyroidism, unspecified type E03.9 and Other elevated white blood cell (WBC) count D72.828 [place] [address] [facility] [id number] [address] [place] [address] Oct, Morbid obesity due to excess calories E66.01 ; Chronic obstructive pulmonary disease, unspecified COPD type J44.9 ; History of lupus Z87.39 ; Hypothyroidism, unspecified type E03.9 ; Gastroesophageal reflux disease without esophagitis K21.9 ; Primary insomnia F51.01 and Chronic pain syndrome G89.4 [facility] [address] [facility] [id number] [address] [place] [phone] Sep, [facility] [address] [facility] [id number] [address] [place] [address] Sep, [facility] [address] [facility] [id number] [address] [place] [phone] Sep, [facility] [address] [facility] [id number] [address] [place] [address] Sep, Paranoid schizophrenia F20.0 [facility] [address] [facility] [id number] [address] [place] [phone] Sep, [facility] [address] [facility] [id number] [address] [place] [phone] Sep, Paranoid schizophrenia F20.0 [facility] [address] [facility] [id number] [address] [place] [phone] Sep, [facility] [address] [facility] [id number] [address] [place] [phone] August, Paranoid schizophrenia F20.0 [facility] [address] [facility] [id number] [address] [place] [phone] Jul, [facility] [address] [facility] [id number] [address] [place] [address] Jul, Type 2 diabetes mellitus wit hout complication, without long-term current use of insulin E11.9 ; Morbid obesity due to excess calories E66.01 ; Depression with anxiety F41.8 ; Hypothyroidism, unspecified type E03.9 ; Seasonal allergic rhinitis due to other allergic trigger J30.89 ; Pain, dental K08.89 and Gastroesophageal reflux disease without esophagitis K21.9 [facility] [address] [id number] [address] [place] [address] [id number] Jul, Dental examination Z01.20 [place] [address] [place] [id number] [address] [place] [phone] 07 Jul, 2016 Paranoid schizophrenia F20.0 [place] [address] [place] [id number] [place] [address] 13 Jun, 2016 Paranoid schizophrenia F20.0 and Depression with anxiety F41.8 [place] [address] [address] 10 Jun, 2016 Paranoid schizophrenia F20.0 and Depression with anxiety F41.8 [place] [address] [address] 09 Jun, 2016 [place] [address] [address] Jun, [facility] [place] [address] [address] Jun, Seasonal allergic rhinitis d ue to other allergic trigger J30.89 [facility] [address] [address] May, Sore throat J02.9 ; Other vi ral agents as the cause of diseases classified elsewhere B97.89 and Acute upper respiratory infection, unspecified J06.9 [place] [address] [address] 08 May, 2016 Paranoid schizophrenia F20.0 and Depression with anxiety F41.8 [place] [address] [place] [id number] [place] [address] Apr, Other seasonal allergic rhin itis J30.2 [place] [address] [place] [id number] [place] [address] Apr, Paranoid schizophrenia F20.0 and Depression with anxiety F41.8 [facility] [place] [address] [place] [id number] [place] [address] Apr, Bronchitis J40 and Sore thro at J02.9 [facility] [address] [facility] [id number] [address] [place] [address] Apr, Type 2 diabetes mellitus wit hout complication, without long-term current use of insulin E11.9 [facility] [address] [facility] [id number] [address] [place] [address] Apr, Bronchitis J40 [facility] [address] [place] [id number] [place] [phone] Apr, [facility] [address] [facility] [id number] [address] [place] [phone] Apr, [facility] [address] [address] Mar, Type 2 diabetes mellitus wit hout [...] R60.9 and Other seasonal allergic rhinitis J30.2 [facility] [address] [place] [id number] [address] [place] [address] Mar, Paranoid schizophrenia F20.0 and Depression with anxiety F41.8 [facility] [address] [place] [phone] Feb, [place] [address] [place] [id number] [address] [place] [address] Feb, [place] [address] [address] Feb, [place] [address] [place] [id number] [place] [address] 14 Feb, 2016 [facility] [address] [address] 14 Feb, 2016 Type 2 diabetes mellitus wit hout complication, without long-term current use of insulin E11.9 ; ARIAS on CPAP G47.33 and Preoperative evaluation to rule out surgical contraindication Z01.818 [facility] [address] [id number] [address] [place] [id number] 09 Feb, 2016 Paranoid schizophrenia F20.0 and Depression with anxiety F41.8 [facility] [address] [id number] [address] [place] [id number] 18 Jan, 2016 [facility] [address] [id number] [address] [place] [id number] 18 Jan, 2016 Paranoid schizophrenia F20.0 and Depression with anxiety F41.8 [facility] [address] [id number] [address] [place] [id number] 17 Jan, 2016 [facility] [address] [id number] [address] [place] [address] 14 Jan, 2016 Muscle strain T14.8 [facility] [address] [id number] [address] [place] [address] 10 Jan, 2016 Paranoid schizophrenia F20.0 [facility] [address] [id number] [address] [place] [id number] 07 Jan, 2016 [facility] [address] [id number] [address] [place] [address] 05 Jan, 2016 Paranoid schizophrenia F20.0 and Depression with anxiety F41.8 [facility] [address] [id number] [address] [place] [phone] 05 Jan, 2016 [facility] [address] [id number] [address] [place] [phone] Jan, [facility] [address] [id number] [address] [place] [phone] 28 Dec, 2015 [facility] [address] [id number] [address] [place] [id number] 23 Dec, 2015 Paranoid schizophrenia F20.0 [facility] [address] [id number] [address] [place] [phone] 16 Dec, 2015 Paranoid schizophrenia F20.0 and Depression with anxiety F41.8 [facility] [address] [id number] [address] [place] [phone] Nov, [facility] [address] [id number] [address] [place] [phone] Nov, Paranoid schizophrenia F20.0 [facility] [address] [id number] [address] [place] [phone] Nov, Paranoid schizophrenia F20.0 and Depression with anxiety F41.8 [facility] [address] [id number] [address] [place] [address] 05 Nov, 2015 Type 2 diabetes mellitus wit hout complication, without long-term current use of insulin E11.9 ; Paranoid schizophrenia F20.0 ; Chronic obstructive pulmonary disease, unspecified COPD type J44.9 ; Morbid obesity due to excess calories E66.01 and Parkinsonian tremor G20 [facility] [address] [id number] [address] [place] [address] Nov, [facility] [address] [id number] [address] [place] [phone] Oct, Paranoid schizophrenia F20.0 [facility] [address] [id number] [address] [place] [phone] Oct, Paranoid schizophrenia F20.0 [facility] [address] [id number] [address] [place] [address] Oct, Paranoid schizophrenia F20.0 and Depression with anxiety F41.8 [facility] [address] [id number] [address] [place] [phone] Oct, [facility] [address] [id number] [address] [place] [phone] Oct, Paranoid schizophrenia F20.0 and Depression with anxiety F41.8 [facility] [address] [address] Oct, Nasal sore J34.89 [place] [address] [address] Oct, Type 2 diabetes mellitus wit hout complication, without long-term current use of insulin E11.9 ; Depression with anxiety F41.8 ; Hypothyroidism, unspecified type E03.9 and History of lupus Z87.39 [place] [address] [address] Oct, [place] [address] [address] Oct, Type 2 diabetes mellitus wit hout [...] edema R60.9 and History of lupus Z87.39 [place] [address] [place] [id number] [address] [place] [address] Feb, [place] [address] [address] Jan, [place] [address] [address] Jan, [place] [address] [address] Jan, [place] [address] [address] Dec, [place] [address] [place] [id number] [address] [place] [address] Nov, [facility] [address] [id number] [address] [place] [address], [place] [address] Nov, [facility] [address] [id number] [address] [place] [address], [place] [address] Oct, [facility] [address] [id number] [address] [place] [address], [place] [address] Oct, [facility] [address] [id number] [address] [place] [address], [place] [address] Oct, [facility] [address] [id number] [address] [place] [address], [place] [address] Sep, Allergic rhinitis 477.9 [facility] [address] [id number] [address] [place] [phone] Sep, Rhinitis, allergic 477.9 [facility] [address] [id number] [address] [place] [address], [place] [address] Sep, Rhinitis, allergic 477.9 [facility] [address] [id number] [address] [place] [address], [place] [address] Sep, [facility] [address] [id number] [address] [place] [address], [place] [address] August, [facility] [address] [id number] [address] [place] [address], [place] [address] August, [facility] [address] [id number] [address] [place] [address], [place] [address] August, [facility] [address] [id number] [address] [place] [address], [place] [address] 28 Jul, 2014 [facility] [address] [id number] [address] [place] [address], [place] [address] 14 Jul, 2014 [facility] [address] [id number] [address] [place] [address], [place] [address] 13 Jul, 2014 [facility] [address] [id number] [address] [place] [id number] 16 Jun, 2014 [facility] [address] [id number] [address] [place] [address], [place] [address] 16 Jun, 2014 [facility] [address] [id number] [address] [place] [address], [place] [address] Jun, [facility] [address] [id number] [address] [place] [address], [place] [address] Jun, [facility] [address] [id number] [address] [place] [address], [place] [address] Jun, [facility] [address] [id number] [address] [place] [address], [place] [address] 11 Jun, 2014 [facility] [address] [id number] [address] [place] [address], [place] [address] Jun, [facility] [address] [id number] [address] [place] [address], [place] [address] Jun, [facility] [address] [id number] [address] [place] [address], [place] [address] May, [facility] [address] [id number] [address] [place] [address], [place] [address] May, [facility] [address] [id number] [address] [place] [address], [place] [address] May, [facility] [address] [id number] [address] [place] [address], [place] [address] May, [facility] [address] [id number] [address] [place] [address], [place] [address] Apr, [facility] [address] [id number] [address] [place] [address], [place] [address] Mar, [facility] [address] [id number] [address] [place] [address], [place] [address] Mar, [facility] [address] [id number] [address] [place] [address], [place] [address] Mar, [facility] [address] [id number] [address] [place] [id number] Mar, [facility] [address] [id number] [address] [place] [address], [place] [address] Mar, [facility] [address] [id number] [address] [place] [address], [place] [address] Mar, [facility] [address] [id number] [address] [place] [address], [place] [address] Mar, [facility] [address] [id number] [address] [place] [address], [place] [address] Mar, [facility] [address] [id number] [address] [place] [address], [place] [address] Mar, [facility] [address] [id number] [address] [place] [address], [place] [address] Feb, [facility] [address] [id number] [address] [place] [address], [place] [address] Feb, [facility] [address] [id number] [address] [place] [address], [place] [id number] Feb, [facility] [address] [id number] [address] [place] [address], [place] [address] Feb, [facility] [address] [id number] [address] [place] [address], [place] [address] Feb, [facility] [address] [id number] [address] [place] [address], [place] [address] Feb, [facility] [address] [id number] [address] [place] [address], [place] [address] Feb, [facility] [address] [id number] [address] [place] [address], [place] [address] Feb, [facility] [address] [id number] [address] [place] [address], [place] [address] Jan, [facility] [address] [id number] [address] [place] [address], [place] [address] Jan, [facility] [address] [id number] [address] [place] [address], [place] [address] 16 Jan, 2013 [facility] [address] [id number] [address] [place] [address], [place] [address] 16 Jan, 2014 [facility] [address] [id number] [address] [place] [address], [place] [address] 15 Jan, 2014 [facility] [address] [id number] [address] [place] [address], [place] [address] 15 Jan, 2014 [facility] [address] [id number] [address] [place] [address], [place] [address] 14 Jan, 2014 [facility] [address] [id number] [address] [place] [address], [place] [address] 14 Jan, 2014 [facility] [address] [id number] [address] [place] [address], [place] [address] 14 Jan, 2014 [facility] [address] [id number] [address] [place] [address], [place] [address] 14 Jan, 2014 [facility] [address] [id number] [address] [place] [address], [place] [address] 18 Dec, 2013 [facility] [address] [id number] [address] [place] [address], [place] [address] 18 Dec, 2013 [facility] [address] [id number] [address] [place] [address], [place] [address] 10 Dec, 2013 [facility] [address] [id number] [address] [place] [address], [place] [address] 10 Dec, 2013 [facility] [address] [id number] [address] [place] [address], [place] [address] Nov, [facility] [address] [id number] [address] [place] [address], [place] [address] Nov, [facility] [address] [id number] [address] [place] [address], [place] [address] Nov, [facility] [address] [id number] [address] [place] [address], [place] [address] Nov, [facility] [address] [id number] [address] [place] [address], [place] [address] Nov, [facility] [address] [id number] [address] [place] [address], [place] [address] Oct, [facility] [address] [id number] [address] [place] [address], [place] [address] Oct, [facility] [address] [id number] [address] [place] [address], [place] [address] Oct, [facility] [address] [id number] [address] [place] [address], [place] [address] Oct, [facility] [address] [id number] [address] [place] [address], [place] [address] Sep, [facility] [address] [id number] [address] [place] [address], [place] [address] Sep, [facility] [address] [id number] [address] [place] [address], [place] [address] Sep, [facility] [address] [id number] [address] [place] [address], [place] [address] Sep, [facility] [address] [id number] [address] [place] [address], [place] [address] Sep, [facility] [address] [id number] [address] [place] [address], [place] [address] Sep, [facility] [address] [id number] [address] [place] [address], [place] [address] Sep, [facility] [address] [id number] [address] [place] [address], [place] [address] Sep, [facility] [address] [id number] [address] [place] [address], [place] [address] August, [facility] [address] [id number] [address] [place] [address], [place] [address] August, [facility] [address] [id number] [facility] [place] [address] August, [facility] [address] [id number] [address] [place] [address], [place] [address] August, [facility] [address] [id number] [address] [place] [address], [place] [address] August, [facility] [address] [id number] [address] [place] [address], [place] [address] August, [facility] [address] [id number] [address] [place] [address], [place] [address] August, [facility] [address] [id number] [address] [place] [address], [place] [address] Jul, [facility] [address] [id number] [address] [place] [address], [place] [address] Jul, [facility] [address] [id number] [address] [place] [address], [place] [address] Jul, [facility] [address] [id number] [address] [place] [address], [place] [address] Jul, [facility] [address] [id number] [address] [place] [address], [place] [address] Jul, [facility] [address] [id number] [address] [place] [address], [place] [address] Jul, [facility] [address] [id number] [address] [place] [address], [place] [address] Jul, [facility] [address] [id number] [address] [place] [address], [place] [address] Jul, [facility] [address] [id number] [address] [place] [address], [place] [address] Jul, [facility] [address] [id number] [address] [place] [address], [place] [address] Jul, [facility] [address] [id number] [address] [place] [address], [place] [address] Jul, [facility] [address] [id number] [address] [place] [address], [place] [address] Jul, [facility] [address] [id number] [address] [place] [address], [place] [address] Jun, [facility] [address] [id number] [address] [place] [address], [place] [address] Jun, [facility] [address] [id number] [address] [place] [address], [place] [address] Jun, [facility] [address] [id number] [address] [place] [address], [place] [address] Jun, [facility] [address] [id number] [address] [place] [address], [place] [address] Jun, [facility] [address] [id number] [address] [place] [address], [place] [address] May, [facility] [address] [id number] [address] [place] [address], [place] [address] May, [facility] [address] [id number] [address] [place] [address], [place] [address] May, [facility] [address] [id number] [address] [place] [address], [place] [address] May, [facility] [address] [id number] [address] [place] [address], [place] [address] May, [facility] [address] [id number] [address] [place] [address], [place] [address] May, [facility] [address] [id number] [address] [place] [address], [place] [address] May, [facility] [address] [id number] [address] [place] [address], [place] [address] May, [facility] [address] [id number] [address] [place] [address], [place] [address] Mar, [facility] [address] [id number] [address] [place] [address], [place] [address] 09 Mar, 2013 [facility] [address] [id number] [address] [place] [address], [place] [address] Mar, [facility] [address] [id number] [address] [place] [address], [place] [address] Mar, [facility] [address] [id number] [address] [place] [address], [place] [address] Mar, [facility] [address] [id number] [address] [place] [address], [place] [address] Mar, [facility] [address] [id number] [address] [place] [address], [place] [address] Feb, [facility] [address] [id number] [address] [place] [address], [place] [address] Feb, [facility] [address] [id number] [address] [place] [address], [place] [address] Jan, [facility] [address] [id number] [address] [place] [address], [place] [address] Jan, [facility] [address] [id number] [address] [place] [address], [place] [address] Jan, [facility] [address] [id number] [address] [place] [id number] Jan, [facility] [address] [id number] [address] [place] [address], [place] [address] Jan, [facility] [address] [id number] [address] [place] [id number] Jan, [facility] [address] [id number] [address] [place] [id number] Jan, [facility] [address] [id number] [address] [place] [id number] Jan, [facility] [address] [id number] [address] [place] [id number] Jan, [facility] [address] [id number] [address] [place] [address], [place] [address] Jan, [facility] [address] [id number] [address] [place] [address], [place] [address] Dec, [facility] [address] [id number] [address] [place] [address], [place] [address] Nov, [facility] [address] [id number] [address] [place] [address], [place] [address] Nov, [facility] [address] [id number] [address] [place] [address], [place] [address] Nov, [facility] [address] [id number] [address] [place] [address], [place] [address] Oct, [facility] [address] [id number] [address] [place] [address], [place] [address] Oct, [facility] [address] [id number] [address] [place] [address], [place] [address] August, [facility] [address] [id number] [address] [place] [address], [place] [address] Apr, [facility] [address] [id number] [address] [place] [address], [place] [address] Apr, [facility] [address] [id number] [address] [place] [address], [place] [address] Feb, [facility] [address] [id number] [address] [place] [address], [place] [address] Feb, [facility] [address] [id number] [address] [place] [address], [place] [address] Dec, [facility] [address] [id number] [address] [place] [address], [place] [address] Dec, [facility] [address] [id number] [address] [place] [address], [place] [address] Oct, [facility] [address] [id number] [address] [address] Oct, [facility] [address] [facility] [id number] [address] [place] [id number] Oct, [facility] [address] [facility] [id number] [address] [place] [id number] Jul, IMMUNIZATIONS No Known Immunizations SOCIAL HISTORY Never Assessed REASON FOR VISIT Request return call PLAN OF CARE VITAL SIGNS [...] psychosis/mental illness, last one in [facility] 4 years ago Hospitalization History broken ankle 08/2018
--- OUTSIDE RECORDS SUMMARY | 2019-07-07 04:18 | XMS REPORT ---
Author Author Alayna ARROYO Organization [facility] Address [address] [place] [address] Care Team Providers Care Oracle Iam Consultant Name Role Phone ELVER ARROYO Unavailable PROBLEMS Type Condition ICD9-CM Code TTG55-MN Code Onset Dates Condition S tatus SNOMED Code Problem Depression with anxiety F41.8 Active 901408088 Problem Morbid obesity due to excess calories E66.01 Active 891619129 Problem Chronic obstructive pulmonary disease, unspecified COPD ty pe J44.9 Active 46420668 Problem Paranoid schizophrenia F20.0 Active 81322927 Problem Chronic pain syndrome G89.4 Active 934542570 Problem History of lupus Z87.39 Active 312 049899 Problem Type 2 diabetes mellitus wit hout complication, without long-term current use of insulin E11.9 Active 470454478 Problem Dyslipidemia E78.5 Active 7224000 07 Problem Migraine without aura and without status migrain osus, not intractable G43.009 Active 686176296 Problem Primary insomnia F51.01 Active 397 2004 Problem Schizoaffective disorder, depressive type F25.1 Active 56269937 Problem Menopausal syndrome (hot flashes) N95.1 Active 772677172 Problem DM neuro manif type II E11.49 Active 00868579 Problem Other seasonal allergic rhinitis J30.2 Active 251385179 Problem Other allergic rhinitis J30.89 Active 371824264 Problem Gastroesophageal reflux disease, esophagitis pre sence not specified K21.9 Active 772378497 Problem Tobacco abuse Z72.0 Active 567700 000 Problem Essential hypertension I10 Active 92292633 Problem Hypothyroidism (acquired) E03.9 Acti ve 960705140 Problem COPD exacerbation J44.1 Active 19 9212346 Problem Allergic rhinitis, unspecified seasonality, unspecifie d trigger J30.9 Active 67601650 Problem Gastroesophageal reflux disease without esophagitis K21.9 Active 138637923 Problem Constipation by delayed colonic transit K59.01 Active 21443194 Problem OAB (overactive bladder) N32.81 Activ e 129542263 Problem Seasonal allergic rhinitis due to other allergic trigger J30.89 Active 799171160 Problem Seasonal allergic rhinitis due to pollen J30.1 Active 57034098 Problem 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, without long-term current use of insulin E11.610 Active 659825056 Problem Diabetic polyneuropathy associated with type 2 d iabetes mellitus E11.42 Active 460356945 Problem Cigarette nicotine dependence without complication F17.210 Active 37712237 ALLERGIES No Information ENCOUNTERS Encounter Location Date Diagnosis [place] [address] [address] Dec, [place] [address] [address] Oct, Chronic obstructive pulmonar y disease, unspecified COPD type J44.9 [place] [address] [address] Oct, [place] [address] [address] Sep, Paranoid schizophrenia F20.0 [place] [address] [address] Sep, [place] [address] [place] [id number] [place] [address] Sep, [place] [address] [place] [id number] [place] [address] Sep, Encounter for immunization Z 23 [facility] [address] [place] [id number] [place] [address] Sep, [place] [address] [address] Sep, Closed fracture of right ank le, sequela S82.891S ; Morbid obesity E66.01 and Heat rash L74.0 [place] [address] [place] [id number] [place] [address] Sep, Schizoaffective disorder, de pressive type F25.1 [facility] [address] [id number] [address] [place] [address] 18 Sep, 2018 [facility] [address] [id number] [address] [place] [address] Sep, [facility] [address] [id number] [address] [place] [id number] 14 Sep, 2018 [facility] [address] [id number] [address] [place] [address] Sep, [facility] [address] [id number] [address] [place] [address] Sep, [facility] [address] [id number] [address] [place] [address] Sep, [facility] [address] [id number] [address] [place] [address] Sep, [facility] [address] [id number] [address] [place] [address] Sep, [facility] [address] [id number] [address] [place] [address] Sep, [facility] [address] [id number] [address] [place] [address] August, Paranoid schizophrenia F20.0 [facility] [address] [id number] [address] [place] [address] August, [facility] [address] [id number] [address] [place] [address] August, [facility] [address] [id number] [address] [place] [address] August, [facility] [address] [id number] [address] [place] [address] August, Type 2 diabetes mellitus wit hout complication, without long-term current use of insulin E11.9 ; Closed fracture of right ankle, initial encounter S82.891A ; Constipation by delayed colonic transit K59.01 ; Osteoporosis with pathological fracture, initial encounter M80.00XA and Encounter for immunization Z23 [facility] [address] [facility] [id number] [address] [place] [address] August, [facility] [address] [facility] [id number] [address] [place] [address] August, [facility] [address] [facility] [id number] [address] [place] [address] August, Acquired deformity of muscul oskeletal system, unspecified M95.9 [facility] [address] [facility] [id number] [address] [place] [address] August, Paranoid schizophrenia F20.0 [facility] [address] [id number] [place] [address] August, [facility] [address] [facility] [id number] [address] [place] [address] Jul, [facility] [address] [facility] [id number] [address] [place] [address] Jul, Diabetic polyneuropathy asso ciated with type 2 diabetes mellitus E11.42 ; Paranoid schizophrenia F20.0 ; Preoperative clearance Z01.818 and Morbid obesity E66.01 [facility] [address] [facility] [id number] [address] [place] [address] Jul, Paranoid schizophrenia F20.0 [facility] [address] [facility] [id number] [address] [place] [address] Jul, [facility] [address] [facility] [id number] [address] [place] [address] Jul, [facility] [address] [facility] [id number] [address] [place] [address] Jul, Cigarette nicotine dependenc e without complication F17.210 [facility] [address] [facility] [id number] [address] [place] [address] Jul, Type 2 diabetes mellitus wit hout complication, without long-term current use of insulin E11.9 and Hypothyroidism (acquired) E03.9 [facility] [address] [facility] [id number] [address] [place] [address] 01 Jul, 2018 Encounter for Medicare laureen wellness exam Z00.00 ; Morbid obesity due to excess calories E66.01 ; Diabetic polyneuropathy associated with type 2 diabetes mellitus E11.42 ; Chronic obstructive pulmonary disease, unspecified COPD type J44.9 ; Schizoaffective disorder, depressive type F25.1 ; Hypothyroidism (acquired) E03.9 and Morbid obesity E66.01 [place] [address] [facility] [id number] [address] [place] [address] 28 Jun, 2018 Gastroesophageal reflux dise ase without esophagitis K21.9 [place] [address] [facility] [id number] [address] [place] [address] 28 Jun, 2018 Paranoid schizophrenia F20.0 [place] [address] [facility] [id number] [address] [place] [address] Jun, Schizoaffective disorder, de pressive type F25.1 [place] [address] [facility] [id number] [address] [place] [address] Jun, [place] [address] [facility] [id number] [address] [place] [address] Jun, Schizoaffective disorder, de pressive type F25.1 [place] [address] [facility] [id number] [address] [place] [address] Jun, Cigarette nicotine dependenc e without complication F17.210 [place] [address] [id number] [address] [place] [address] 18 Jun, 2018 Type 2 diabetes mellitus wit hout complication, without long-term current use of insulin E11.9 [place] [address] [facility] [id number] [address] [place] [address] 15 Jun, 2018 [place] [address] [facility] [id number] [address] [place] [address] 13 Jun, 2018 [place] [address] [address] Jun, [facility] [address] [address] Jun, [facility] [address] [place] [id number] [place] [address] Jun, [facility] [address] [address] Jun, Paranoid schizophrenia F20.0 ; Type 2 diabetes mellitus without complication, without long-term current use of insulin E11.9 ; Hypothyroidism (acquired) E03.9 and Morbid obesity E66.01 [place] [address] [address] 28 May, 2018 Paranoid schizophrenia F20.0 [place] [address] [address] 20 May, 2018 Hypothyroidism (acquired) E0 3.9 and Dyslipidemia E78.5 [place] [address] [address] 19 May, 2018 Cigarette nicotine dependenc e without complication F17.210 [place] [address] [address] 18 May, 2018 [facility] [address] [address] 14 May, 2018 Type 2 diabetes mellitus wit hout complication, without long-term current use of insulin E11.9 ; Essential hypertension I10 ; Hypothyroidism (acquired) E03.9 and Dyslipidemia E78.5 [place] [address] [address] 13 May, 2018 [place] [address] [address] 08 May, 2018 Schizoaffective disorder, de pressive type F25.1 [place] [address] [place] [address] 08 May, 2018 Paranoid schizophrenia F20.0 [facility] [address] [address] 07 May, 2018 [facility] [address] [place] [address] 07 May, 20 19 [place] [address] [address] May, [facility] [address] [address] May, Type 2 diabetes mellitus wit hout complication, without long-term current use of insulin E11.9 ; Essential hypertension I10 ; Hypothyroidism (acquired) E03.9 and Dyslipidemia E78.5 [place] [address] [address] May, [facility] [address] [address] May, Acute nasopharyngitis J00 [facility] [address] [address] May, Allergic rhinitis, unspecifi ed seasonality, unspecified trigger J30.9 [facility] [address] [address] May, [facility] [address] [address] Apr, Schizoaffective disorder, de pressive type F25.1 [place] [address] [address] Apr, [place] [address] [address] Apr, Cigarette nicotine dependenc e without complication F17.210 [place] [address] [address] Apr, [facility] [address] [facility] [id number] [address] [place] [address] Apr, Cigarette nicotine dependenc e without complication F17.210 [facility] [address] [facility] [id number] [address] [place] [address] Apr, [facility] [address] [facility] [id number] [address] [place] [address] Apr, Migraine without aura and wi thout status migrainosus, not intractable G43.009 [facility] [address] [facility] [id number] [address] [place] [address] Apr, Migraine without aura and wi thout status migrainosus, not intractable G43.009 [facility] [address] [facility] [id number] [address] [place] [address] Mar, Schizoaffective disorder, de pressive type F25.1 ; BMI 45.0-49.9, adult Z68.42 and BMI 40.0-44.9, adult Z68.41 [facility] [address] [place] [id number] [address] [place] [address] Mar, Primary insomnia F51.01 [facility] [address] [facility] [id number] [address] [place] [address] Mar, [facility] [address] [facility] [id number] [address] [place] [address] Feb, Primary insomnia F51.01 [facility] [address] [facility] [id number] [address] [place] [address] Feb, [facility] [address] [facility] [id number] [address] [place] [address] Jan, Schizoaffective disorder, de pressive type F25.1 and BMI 45.0-49.9, adult Z68.42 [facility] [address] [facility] [id number] [address] [place] [address] Jan, [facility] [address] [address] 16 Jan, 2018 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, without long-term current use of insulin E11.610 ; Menopausal syndrome (hot flashes) N95.1 and BMI 40.0-44.9, adult Z68.41 [facility] [address] [address] Jan, Paranoid schizophrenia F20.0 [place] [address] [address] Jan, [facility] [address] [address] Jan, Schizoaffective disorder, de pressive type F25.1 [place] [address] [address] Jan, [place] [address] [address] Jan, Chronic obstructive pulmonar y disease, unspecified COPD type J44.9 ; BMI 45.0-49.9, adult Z68.42 ; Type 2 diabetes mellitus without complication, without long-term current use of insulin E11.9 ; Hypothyroidism (acquired) E03.9 ; Encounter for immunization Z23 ; Gastroesophageal reflux disease without esophagitis K21.9 ; Primary insomnia F51.01 and Acute nasopharyngitis J00 [place] [address] [address] Dec, [place] [address] [address] Dec, Schizoaffective disorder, de pressive type F25.1 and BMI 45.0-49.9, adult Z68.42 [facility] [address] [address] Dec, [place] [address] [address] Dec, [place] [address] [id number] [address] [place] [address] 18 Dec, 2017 Acute non-recurrent frontal sinusitis J01.10 [facility] [address] [facility] [id number] [address] [place] [address] 18 Dec, 2017 Acute non-recurrent frontal sinusitis J01.10 ; Weakness of left leg R29.898 ; At high risk for falls Z91.81 and BMI 45.0-49.9, adult Z68.42 [facility] [address] [facility] [id number] [address] [place] [address] 17 Dec, 2017 [facility] [address] [facility] [id number] [address] [place] [address] Dec, [facility] [address] [facility] [id number] [address] [place] [address] Dec, Schizoaffective disorder, de pressive type F25.1 [facility] [address] [facility] [id number] [address] [place] [address] Dec, Acute nasopharyngitis J00 [facility] [address] [facility] [id number] [address] [place] [address] 05 Dec, 2017 Schizoaffective disorder, de pressive type F25.1 [facility] [address] [facility] [id number] [address] [place] [address] Dec, [facility] [address] [facility] [id number] [address] [place] [address] Nov, Schizoaffective disorder, de pressive type F25.1 and BMI 45.0-49.9, adult Z68.42 [facility] [address] [facility] [id number] [address] [place] [address] Nov, [facility] [address] [facility] [id number] [address] [place] [address] Nov, [facility] [address] [facility] [id number] [address] [place] [address] Nov, Schizoaffective disorder, de pressive type F25.1 [place] [address] [place] [id number] [address] [place] [address] 16 Nov, 2017 Well woman exam Z01.419 ; BM I 45.0-49.9, adult Z68.42 ; Screening breast examination Z12.31 and Dietary counseling and surveillance Z71.3 [place] [address] [place] [id number] [address] [place] [address] 10 Nov, 2017 Paranoid schizophrenia F20.0 [place] [address] [place] [id number] [address] [place] [address] 09 Nov, 2017 Gastroesophageal reflux dise ase, esophagitis presence not specified K21.9 [place] [address] [place] [id number] [place] [address] 24 Oct, 2017 Paranoid schizophrenia F20.[id number] [place] [address] 18 Oct, 2017 Chronic pain syndrome G89.4 and Schizoaf fective disorder, depressive type F25.1 [place] [address] [place] [id number] [place] [address] 18 Oct, 2017 Chronic pain syndrome G89.4 and Schizoaffective disorder, depressive type F25.1 [place] [address] [place] [id number] [place] [address] 16 Oct, 2017 Type 2 diabetes mellitus wit hout complication, without long-term current use of insulin E11.9 [place] [address] [place] [id number] [place] [address] 12 Oct, 2017 Essential hypertension I10 a nd DM neuro manif type II E11.49 [place] [address] [place] [id number] [place] [address] 11 Oct, 2017 [place] [address] [facility] [id number] [address] [place] [address] 11 Oct, 2017 Schizoaffective disorder, de pressive type F25.1 and BMI 45.0-49.9, adult Z68.42 [facility] [address] [facility] [id number] [address] [place] [address] Oct, [facility] [address] [facility] [id number] [address] [place] [address] Oct, Paranoid schizophrenia F20.0 [facility] [address] [facility] [id number] [address] [place] [address] Oct, 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, without long-term current use of insulin E11.610 ; Essential hypertension I10 ; Hypothyroidism (acquired) E03.9 ; Chronic obstructive pulmonary disease, unspecified COPD type J44.9 and Diabetic polyneuropathy associated with type 2 diabetes mellitus E11.42 [facility] [address] [facility] [id number] [address] [place] [address] Sep, Paranoid schizophrenia F20.0 [facility] [address] [place] [id number] [place] [address] Sep, Paranoid schizophrenia F20.0 and BMI 45.0-49.9, adult Z68.42 [facility] [address] [facility] [id number] [address] [place] [address] Sep, Schizoaffective disorder, de pressive type F25.1 [facility] [address] [facility] [id number] [address] [place] [address] Sep, [facility] [address] [facility] [id number] [address] [place] [address] Sep, Paranoid schizophrenia F20.0 [facility] [address] [facility] [id number] [address] [place] [address] Sep, [facility] [address] [facility] [id number] [address] [place] [address] Sep, Hypothyroidism (acquired) E0 3.9 [facility] [address] [place] [id number] [address] [place] [address] Sep, [facility] [address] [address] August, Schizoaffective disorder, de pressive type F25.1 [facility] [address] [address] August, [facility] [address] [address] August, [facility] [address] [address] August, [facility] [address] [address] August, Paranoid schizophrenia F20.0 [place] [address] [address] August, History of lupus Z87.39 and Chronic pain syndrome G89.4 [place] [address] [address] August, [facility] [address] [address] August, Seasonal allergic rhinitis, unspecified trigger J30.2 and BMI 45.0-49.9, adult Z68.42 [place] [address] [address] Jul, Schizoaffective disorder, de pressive type F25.1 [place] [address] [address] Jul, [place] [address] [address] Jul, Hypothyroidism (acquired) E0 3.9 [place] [address] [address] Jul, Chronic obstructive pulmonar y disease, unspecified COPD type J44.9 and Type 2 diabetes mellitus without complication, without long-term current use of insulin E11.9 [place] [address] [address] Jul, Paranoid schizophrenia F20.0 [facility] [address] [address] Jun, Hypothyroidism (acquired) E0 3.9 and Seasonal allergic rhinitis due to pollen J30.1 [facility] [address] [address] Jun, Shortness of breath at rest R06.02 ; COPD exacerbation J44.1 and BMI 45.0-49.9, adult Z68.42 [place] [address] [address] Jun, [place] [address] [address] Jun, Paranoid schizophrenia F20.0 ; Depression with anxiety F41.8 and BMI 45.0-49.9, adult Z68.42 [facility] [address] [address] Jun, Schizoaffective disorder, de pressive type F25.1 [facility] [address] [place] [id number] [address] [place] [id number] 13 Jun, 2017 Dental caries K02.9 [place] [address] [address] 12 Jun, 2017 Paranoid schizophrenia F20.0 [facility] [address] [address] May, Migraine without aura and wi thout status migrainosus, not intractable G43.009 ; DM neuro manif type II E11.49 and Type 2 diabetes mellitus without complication, without long-term current use of insulin E11.9 [facility] [address] [place] [id number] [address] [place] [address] 26 May, 2017 Migraine without aura and wi thout status migrainosus, not intractable G43.009 [facility] [address] [address] May, Depression with anxiety F41. 8 [facility] [address] [id number] May, [facility] [address] [id number] May, [place] [address] [id number] May, [place] [address] [address] May, Hypothyroidism (acquired) E0 3.9 [place] [address] [address] May, Paranoid schizophrenia F20.0 [place] [address] [address] May, Type 2 diabetes mellitus wit hout [...] N32.81 and Controlled substance agreement signed Z79.899 [place] [address] [address] May, Controlled substance agreeme nt signed Z79.899 [place] [address] [address] Apr, [facility] [address] [id number] Apr, Dental examination Z01.20 [facility] [address] [id number] [address] [place] [id number] Apr, Paranoid schizophrenia F20.0 [facility] [address] [id number] [address] [place] [id number] Apr, Hypertension, unspecified ty pe I10 [facility] [address] [id number] [address] [place] [id number] Apr, Paranoid schizophrenia F20.0 [facility] [address] [id number] [address] [place] [address] Apr, [facility] [address] [id number] [address] [place] [address] Apr, Tobacco abuse Z72.0 [facility] [address] [id number] [address] [place] [address] Apr, [facility] [address] [id number] [address] [place] [address] Mar, [facility] [address] [id number] [address] [place] [address] Mar, Paranoid schizophrenia F20.0 and BMI 45.0-49.9, adult Z68.42 [facility] [address] [id number] [address] [place] [address] Mar, Schizoaffective disorder, de pressive type F25.1 [facility] [address] [id number] [address] [place] [address] Mar, [facility] [address] [id number] [address] [place] [address] Mar, Hypothyroidism, unspecified type E03.9 [facility] [address] [id number] [address] [place] [address] Mar, Schizoaffective disorder, de pressive type F25.1 [facility] [address] [address] Feb, Gastroenteritis K52.9 and BM I 45.0-49.9, adult Z68.42 [place] [address] [address] Feb, [facility] [address] [address] Feb, [place] [address] [address] Feb, [place] [address] [address] Feb, [place] [address] [address] Feb, Paranoid schizophrenia F20.0 [place] [address] [address] Feb, Gastroesophageal reflux dise ase without esophagitis K21.9 ; Other seasonal allergic rhinitis J30.2 ; Other allergic rhinitis J30.89 ; Tobacco abuse Z72.0 and BMI 40.0-44.9, adult Z68.41 [place] [address] [address] Feb, Onychomycosis B35.1 ; Callus of foot L84 and DM neuro manif type II E11.49 [place] [address] [address] Jan, Chronic allergic rhinitis J3 0.9 [place] [address] [address] Jan, [place] [address] [address] Jan, Schizoaffective disorder, de pressive type F25.1 [place] [address] [address] Jan, [facility] [address] [facility] [id number] [address] [place] [address] 07 Jan, 2017 Sore throat J02.9 and Season al allergic rhinitis due to other allergic trigger J30.89 [facility] [address] [facility] [id number] [address] [place] [address] 04 Jan, 2017 [facility] [address] [place] [id number] [address] [place] [address] Jan, [facility] [address] [place] [id number] [address] [place] [address] Jan, Chronic allergic rhinitis J3 0.9 [place] [address] [address] [place] [id number] [place] [address] 27 Dec, 2016 Paranoid schizophrenia F20.0 ; Primary insomnia F51.01 and Schizoaffective disorder, depressive type F25.1 [place] [address] [address] Dec, Chronic pain syndrome G89.4 ; Cervicalgia of lbzsboxq-jikoxqk-fsnkv region M54.2 ; Menopausal syndrome (hot flashes) N95.1 and Encounter for immunization Z23 [facility] [address] [place] [id number] [address] [place] [id number] 14 Dec, 2016 [facility] [address] [place] [id number] [address] [place] [address] 13 Dec, 2016 [facility] [address] [place] [id number] [address] [place] [address] 08 Dec, 2016 Paranoid schizophrenia F20.0 [facility] [address] [place] [id number] [address] [place] [address] Dec, Schizoaffective disorder, de pressive type F25.1 [facility] [address] [facility] [id number] [address] [place] [address] Nov, Hypothyroidism, unspecified type E03.9 [facility] [address] [place] [id number] [address] [place] [address] Nov, Acute seasonal allergic rhin itis due to other allergen J30.89 [place] [address] [facility] [id number] [address] [place] [address] Nov, [place] [address] [facility] [id number] [address] [place] [address] Nov, Hypothyroidism, unspecified type E03.9 and Other elevated white blood cell (WBC) count D72.828 [place] [address] [address] [facility] [id number] [address] [place] [address] Nov, Schizoaffective disorder, de pressive type F25.1 [place] [address] [facility] [id number] [address] [place] [address] Nov, Paranoid schizophrenia F20.0 [place] [address] [facility] [id number] [address] [place] [address] Nov, Type 2 diabetes mellitus wit hout complication, without long-term current use of insulin E11.9 ; Morbid obesity due to excess calories E66.01 and Chronic pain syndrome G89.4 [place] [address] [address] [facility] [id number] [address] [place] [address] Oct, Paranoid schizophrenia F20.0 [place] [address] [id number] [address] [place] [address] Oct, [place] [address] [facility] [id number] [address] [place] [address] Oct, Schizoaffective disorder, de pressive type F25.1 [place] [address] [id number] [address] [place] [address] Oct, Hypothyroidism, unspecified type E03.9 and Other elevated white blood cell (WBC) count D72.828 [place] [address] [facility] [id number] [address] [place] [address] Oct, Morbid obesity due to excess calories E66.01 ; Chronic obstructive pulmonary disease, unspecified COPD type J44.9 ; History of lupus Z87.39 ; Hypothyroidism, unspecified type E03.9 ; Gastroesophageal reflux disease without esophagitis K21.9 ; Primary insomnia F51.01 and Chronic pain syndrome G89.4 [facility] [address] [id number] [address] [place] [address] 30 Sep, 2016 [facility] [address] [id number] [address] [place] [address] Sep, [facility] [address] [id number] [address] [place] [address] Sep, [facility] [address] [id number] [address] [place] [address] Sep, Paranoid schizophrenia F20.0 [facility] [address] [id number] [address] [place] [address] Sep, [facility] [address] [id number] [address] [place] [address] Sep, Paranoid schizophrenia F20.0 [facility] [address] [id number] [address] [place] [address] Sep, [facility] [address] [facility] [id number] [address] [place] [address] August, Paranoid schizophrenia F20.0 [facility] [address] [facility] [id number] [address] [place] [address] Jul, [facility] [address] [facility] [id number] [address] [place] [address] Jul, Type 2 diabetes mellitus wit hout complication, without long-term current use of insulin E11.9 ; Morbid obesity due to excess calories E66.01 ; Depression with anxiety F41.8 ; Hypothyroidism, unspecified type E03.9 ; Seasonal allergic rhinitis due to other allergic trigger J30.89 ; Pain, dental K08.89 and Gastroesophageal reflux disease without esophagitis K21.9 [facility] [address] [id number] [address] [place] [id number] 12 Jul, 2016 Dental examination Z01.20 [place] [address] [address] [place] [id number] [address] [place] [address] 07 Jul, 2016 Paranoid schizophrenia F20.0 [place] [address] [address] 13 Jun, 2016 Paranoid schizophrenia F20.0 and Depression with anxiety F41.8 [place] [address] [address] 10 Jun, 2016 Paranoid schizophrenia F20.0 and Depression with anxiety F41.8 [place] [address] [address] 09 Jun, 2016 [place] [address] [address] Jun, [facility] [place] [address] [address] Jun, Seasonal allergic rhinitis d ue to other allergic trigger J30.89 [facility] [place] [address] [address] May, Sore throat J02.9 ; Other vi ral agents as the cause of diseases classified elsewhere B97.89 and Acute upper respiratory infection, unspecified J06.9 [place] [address] [address] May, Paranoid schizophrenia F20.0 and Depression with anxiety F41.8 [place] [address] [address] Apr, Other seasonal allergic rhin itis J30.2 [place] [address] [address] Apr, Paranoid schizophrenia F20.0 and Depression with anxiety F41.8 [facility] [place] [address] [address] [place] [id number] [place] [address] Apr, Bronchitis J40 and Sore thro at J02.9 [place] [id number] [place] [address] Apr, Type 2 diabetes mellitus wit hout complication, without long-term current use of insulin E11.9 [facility] [address] [place] [id number] [address] [place] [address] Apr, Bronchitis J40 [facility] [address] [address] Apr, [facility] [address] [address] Apr, [facility] [address] [address] Mar, Type 2 diabetes mellitus wit hout [...] R60.9 and Other seasonal allergic rhinitis J30.2 [place] [address] [address] Mar, Paranoid schizophrenia F20.0 and Depression with anxiety F41.8 [facility] [address] [address] Feb, [facility] [address] [address] Feb, [place] [address] [address] Feb, [place] [address] [address] Feb, [facility] [address] [address] 14 Nov, 2016 Type 2 diabetes mellitus wit hout complication, without long-term current use of insulin E11.9 ; ARIAS on CPAP G47.33 and Preoperative evaluation to rule out surgical contraindication Z01.818 [facility] [address] [id number] [address] [place] [address] 09 Feb, 2016 Paranoid schizophrenia F20.0 and Depression with anxiety F41.8 [facility] [address] [id number] [address] [place] [id number] 18 Jan, 2016 [facility] [address] [id number] [address] [place] [address] 18 Jan, 2016 Paranoid schizophrenia F20.0 and Depression with anxiety F41.8 [facility] [address] [id number] [address] [place] [address] 17 Jan, 2016 [facility] [address] [id number] [address] [place] [address] 14 Jan, 2016 Muscle strain T14.8 [facility] [address] [id number] [address] [place] [address] 10 Jan, 2016 Paranoid schizophrenia F20.0 [facility] [address] [id number] [address] [place] [address] 07 Jan, 2016 [facility] [address] [id number] [address] [place] [address] Jan, Paranoid schizophrenia F20.0 and Depression with anxiety F41.8 [facility] [address] [id number] [address] [place] [address] 05 Jan, 2016 [facility] [address] [id number] [address] [place] [address] Jan, [facility] [address] [id number] [address] [place] [address] Dec, [facility] [address] [id number] [address] [place] [address] Dec, Paranoid schizophrenia F20.0 [facility] [address] [id number] [address] [place] [address] 16 Dec, 2015 Paranoid schizophrenia F20.0 and Depression with anxiety F41.8 [facility] [address] [id number] [address] [place] [address] Nov, [facility] [address] [facility] [id number] [address] [place] [address] Nov, Paranoid schizophrenia F20.0 [facility] [address] [id number] [address] [place] [address] Nov, Paranoid schizophrenia F20.0 and Depression with anxiety F41.8 [facility] [address] [facility] [id number] [address] [place] [address] 05 Nov, 2015 Type 2 diabetes mellitus wit hout complication, without long-term current use of insulin E11.9 ; Paranoid schizophrenia F20.0 ; Chronic obstructive pulmonary disease, unspecified COPD type J44.9 ; Morbid obesity due to excess calories E66.01 and Parkinsonian tremor G20 [facility] [address] [facility] [id number] [address] [place] [address] Nov, [facility] [address] [facility] [id number] [address] [place] [address] Oct, Paranoid schizophrenia F20.0 [facility] [address] [facility] [id number] [address] [place] [address] Oct, Paranoid schizophrenia F20.0 [facility] [address] [facility] [id number] [address] [place] [address] Oct, Paranoid schizophrenia F20.0 and Depression with anxiety F41.8 [facility] [address] [id number] [address] [place] [address] Oct, [facility] [address] [facility] [id number] [address] [place] [address] Oct, Paranoid schizophrenia F20.0 and Depression with anxiety F41.8 [facility] [address] [facility] [id number] [address] [place] [address] Oct, Nasal sore J34.89 [facility] [address] [facility] [id number] [address] [place] [address] Oct, Type 2 diabetes mellitus wit hout complication, without long-term current use of insulin E11.9 ; Depression with anxiety F41.8 ; Hypothyroidism, unspecified type E03.9 and History of lupus Z87.39 [facility] [address] [place] [id number] [address] [place] [address] Oct, [facility] [address] [place] [id number] [address] [place] [address] Oct, Type 2 diabetes mellitus wit hout [...] edema R60.9 and History of lupus Z87.39 [place] [address] [place] [id number] [address] [place] [address] Feb, [place] [address] [address] [place] [id number] [address] [place] [address] Jan, [place] [address] [place] [id number] [address] [place] [address] Jan, [facility] [address] [place] [id number] [address] [place] [address] Jan, [place] [address] [address] [place] [id number] [address] [place] [address] Dec, [facility] [address] [place] [id number] [address] [place] [address] Nov, [place] [address] [place] [id number] [address] Nov, [facility] [address] [id number] [address] [place] [address] Oct, [facility] [address] [id number] [address] [place] [address] Oct, [facility] [address] [id number] [address] [place] [id number] Oct, [facility] [address] [id number] [address] [place] [address] Sep, Allergic rhinitis 477.9 [facility] [address] [id number] [address] [place] [id number] Sep, Rhinitis, allergic 477.9 [facility] [address] [id number] [address] [place] [address] Sep, Rhinitis, allergic 477.9 [facility] [address] [id number] [address] [place] [address] Sep, [facility] [address] [id number] [address] [place] [address] August, [facility] [address] [id number] [address] [place] [address] August, [facility] [address] [id number] [address] [place] [address] August, [facility] [address] [id number] [address] [place] [id number] 28 Jul, [address] [facility] [address] [id number] [address] [place] [address], [place] [address] 14 Jul, [address] [facility] [address] [id number] [address] [place] [id number] 13 Jul, [address] [facility] [address] [id number] [address] [place] [address] Jun, [facility] [address] [id number] [address] [place] [address], [place] [address] 16 Jun, 2014 [facility] [address] [id number] [address] [place] [address], [place] [address] 12 Jun, 2014 [facility] [address] [id number] [address] [place] [address], [place] [address] 12 Jun, 2014 [facility] [address] [id number] [address] [place] [address], [place] [address] Jun, [facility] [address] [id number] [address] [place] [address], [place] [address] Jun, [facility] [address] [id number] [address] [place] [address], [place] [address] Jun, [facility] [address] [id number] [address] [place] [address], [place] [address] Jun, [facility] [address] [id number] [address] [place] [address], [place] [address] May, [facility] [address] [id number] [address] [place] [address], [place] [address] May, [facility] [address] [id number] [address] [place] [address], [place] [address] May, [facility] [address] [id number] [address] [place] [address], [place] [address] May, [facility] [address] [id number] [address] [place] [address], [place] [address] Apr, [facility] [address] [id number] [address] [place] [address], [place] [address] Mar, [facility] [place] [facility] [address] [id number] [address] [place] [address], [place] [address] Mar, [facility] [address] [id number] [address] [place] [address], [place] [address] Mar, [facility] [address] [id number] [address] [place] [address], [place] [address] Mar, [facility] [place] [facility] [address] [id number] [address] [place] [address], [place] [address] Mar, [facility] [place] [facility] [address] [id number] [address] [place] [address], [place] [address] Mar, [facility] [place] [facility] [address] [id number] [address] [place] [address], [place] [address] Mar, [facility] [place] [facility] [address] [id number] [address] [place] [address], [place] [address] Mar, [facility] [place] [facility] [address] [id number] [address] [place] [address], [place] [address] Mar, [facility] [place] [facility] [address] [id number] [address] [place] [address], [place] [address] Feb, [facility] [place] [facility] [address] [id number] [address] [place] [address], [place] [address] Feb, [facility] [place] [facility] [address] [id number] [address] [place] [address], [place] [address] Feb, [facility] [place] [facility] [address] [id number] [address] [place] [address], [place] [address] Feb, [facility] [place] [facility] [address] [id number] [address] [place] [address], [place] [address] Feb, [facility] [place] [facility] [address] [id number] [address] [place] [address], [place] [address] Feb, [facility] [place] [facility] [address] [id number] [address] [place] [address], [place] [address] Feb, [facility] [place] [facility] [address] [id number] [address] [place] [address], [place] [address] Feb, [facility] [place] [facility] [address] [id number] [address] [place] [address], [place] [address] Jan, [facility] [place] [facility] [address] [id number] [address] [place] [address], [place] [address] Jan, [facility] [place] [facility] [address] [id number] [address] [place] [address] [place] [address] 16 Jan, 2014 [facility] [place] [facility] [address] [id number] [address] [place] [address], [place] [address] 16 Jan, 2014 [facility] [place] [facility] [address] [id number] [address] [place] [address], [place] [address] 15 Jan, 2014 [facility] [place] [facility] [address] [id number] [address] [place] [address], [place] [address] 15 Jan, 2014 [facility] [address] [id number] [address] [place] [address], [place] [address] 14 Jan, 2014 [facility] [address] [id number] [address] [place] [address], [place] [address] 14 Jan, 2014 [facility] [address] [id number] [address] [place] [address], [place] [address] 14 Jan, 2014 [facility] [address] [id number] [address] [place] [address], [place] [address] 14 Jan, 2014 [facility] [address] [id number] [address] [place] [address], [place] [address] 18 Dec, 2013 [facility] [address] [id number] [address] [place] [address], [place] [address] 18 Dec, 2013 [facility] [address] [id number] [address] [place] [address], [place] [address] 10 Dec, 2013 [facility] [address] [id number] [address] [place] [address], [place] [address] 10 Dec, 2013 [facility] [address] [id number] [address] [place] [address], [place] [address] Nov, [facility] [address] [id number] [address] [place] [address], [place] [address] Nov, [facility] [address] [id number] [address] [place] [address], [place] [address] Nov, [facility] [address] [id number] [address] [place] [address], [place] [address] 18 Nov, 2013 [facility] [address] [id number] [address] [place] [address], [place] [address] Nov, [facility] [address] [id number] [facility] [place] [address] Oct, [facility] [address] [id number] [address] [place] [address], [place] [address] Oct, [facility] [address] [id number] [address] [place] [address], [place] [address] Oct, [facility] [address] [id number] [address] [place] [address], [place] [address] Oct, [facility] [address] [id number] [address] [place] [address], [place] [address] Sep, [facility] [address] [id number] [address] [place] [address], [place] [address] Sep, [facility] [address] [id number] [address] [place] [address], [place] [address] Sep, [facility] [address] [id number] [address] [place] [address], [place] [address] Sep, [facility] [address] [id number] [address] [place] [address], [place] [address] Sep, [facility] [address] [id number] [address] [place] [address], [place] [address] Sep, [facility] [address] [id number] [address] [place] [address], [place] [address] Sep, [facility] [address] [id number] [address] [place] [address], [place] [address] Sep, [facility] [address] [id number] [address] [place] [address], [place] [address] August, [facility] [address] [id number] [address] [place] [address], [place] [address] August, [facility] [address] [id number] [address] [place] [place] [address] [address] August, [facility] [address] [id number] [facility] [place] [address] August, [facility] [address] [id number] [address] [place] [address], [place] [address] August, [facility] [address] [id number] [address] [place] [address], [place] [address] August, [facility] [address] [id number] [address] [place] [address], [place] [address] August, [facility] [address] [id number] [address] [place] [address], [place] [address] Jul, [facility] [address] [id number] [address] [place] [address], [place] [address] Jul, [facility] [address] [id number] [address] [place] [address], [place] [address] Jul, [facility] [address] [id number] [address] [place] [address], [place] [address] Jul, [facility] [address] [id number] [address] [place] [address], [place] [address] Jul, [facility] [address] [id number] [address] [place] [address], [place] [address] Jul, [facility] [address] [id number] [address] [place] [address], [place] [address] Jul, [facility] [address] [id number] [address] [place] [address], [place] [address] Jul, [facility] [address] [id number] [address] [place] [address], [place] [address] Jul, [facility] [place] [address] [id number] [address] [place] [address], [place] [address] Jul, [facility] [place] [facility] [address] [id number] [address] [place] [address], [place] [address] Jul, [facility] [address] [id number] [address] [place] [address] Jul, [facility] [address] [id number] [address] [place] [address], [place] [address] Jun, [facility] [address] [id number] [address] [place] [address], [place] [address] Jun, [facility] [address] [id number] [address] [place] [address], [place] [address] Jun, [facility] [address] [id number] [address] [place] [address], [place] [address] Jun, [facility] [address] [id number] [address] [place] [address], [place] [address] Jun, [facility] [address] [id number] [address] [place] [address], [place] [address] May, [facility] [place] [facility] [address] [id number] [address] [place] [address], [place] [address] May, [facility] [address] [id number] [address] [place] [address], [place] [address] May, [facility] [address] [id number] [address] [place] [address], [place] [address] May, [facility] [address] [id number] [address] [place] [address], [place] [address] May, [facility] [place] [facility] [address] [id number] [address] [place] [address], [place] [address] May, [facility] [address] [id number] [address] [place] [address], [place] [address] May, [facility] [address] [id number] [address] [place] [address], [place] [address] May, [facility] [place] [facility] [address] [id number] [address] [place] [address], [place] [address] Mar, [facility] [address] [id number] [address] [place] [address], [place] [address] Mar, [facility] [address] [id number] [address] [place] [address], [place] [address] Mar, [facility] [address] [id number] [address] [place] [address], [place] [address] Mar, [facility] [address] [id number] [address] [place] [address], [place] [address] Mar, [facility] [address] [id number] [address] [place] [address] Mar, [facility] [address] [id number] [address] [place] [address], [place] [address] Feb, [facility] [address] [id number] [address] [place] [address] Feb, [facility] [address] [id number] [address] [place] [address], [place] [address] Jan, [facility] [address] [id number] [address] [place] [address] Jan, [facility] [address] [id number] [address] [place] [address] Jan, [facility] [address] [id number] [address] [place] [address] Jan, [facility] [address] [id number] [address] [place] [address] Jan, [facility] [address] [id number] [address] [place] [address] Jan, [facility] [address] [id number] [address] [place] [address] Jan, [facility] [address] [id number] [address] [place] [address] Jan, [facility] [address] [id number] [address] [place] [address] Jan, [facility] [address] [id number] [address] [place] [address], [place] [address] Jan, [facility] [address] [id number] [address] [place] [address], [place] [address] Dec, [facility] [address] [id number] [address] [place] [address], [place] [address] Nov, [facility] [address] [id number] [address] [place] [address], [place] [address] Nov, [facility] [address] [id number] [address] [place] [address], [place] [address] Nov, [facility] [address] [id number] [address] [place] [address], [place] [address] Oct, [facility] [address] [id number] [address] [place] [address], [place] [address] Oct, [facility] [address] [id number] [address] [place] [address], [place] [address] August, [facility] [address] [id number] [address] [place] [address], [place] [address] Apr, [facility] [address] [id number] [address] [place] [address], [place] [address] Apr, [facility] [address] [id number] [address] [place] [address], [place] [address] Feb, [facility] [address] [id number] [address] [place] [address], [place] [address] Feb, [facility] [address] [id number] [address] [place] [address], [place] [address] Dec, [facility] [address] [id number] [address] [place] [address], [place] [address] Dec, [facility] [address] [id number] [address] [place] [address], [place] [address] Oct, [facility] [address] [id number] [address] [place] [address], [place] [address] Oct, [facility] [address] [facility] [id number] [address] [place] [address] Oct, [facility] [address] [facility] [id number] [address] [place] [address] Jul, IMMUNIZATIONS No Known Immunizations SOCIAL HISTORY [...] hospitalizations for psychosis/mental illness, last one in [facility] 4 years ago Hospitalization History broken ankle 08/2018
--- OUTSIDE RECORDS SUMMARY | 2019-07-07 04:19 | XMS REPORT ---
Author Author Alayna ROJAS Organization [facility] Address [address] [place] [address] Care Team Providers Care Hypoid Gear Generator Name Role Phone RADHA ROJAS Unavailable PROBLEMS Type Condition ICD9-CM Code MXU34-CR Code Onset Dates Condition S tatus SNOMED Code Problem Depression with anxiety F41.8 Active 762321769 Problem Morbid obesity due to excess calories E66.01 Active 297781867 Problem Chronic obstructive pulmonary disease, unspecified COPD ty pe J44.9 Active 59135526 Problem Paranoid schizophrenia F20.0 Active 43249176 Problem Chronic pain syndrome G89.4 Active 686675105 Problem History of lupus Z87.39 Active 312 281884 Problem Type 2 diabetes mellitus wit hout complication, without long-term current use of insulin E11.9 Active 434620914 Problem Dyslipidemia E78.5 Active 7021706 07 Problem Migraine without aura and without status migrain osus, not intractable G43.009 Active 639647031 Problem Primary insomnia F51.01 Active 397 2004 Problem Schizoaffective disorder, depressive type F25.1 Active 17461545 Problem Menopausal syndrome (hot flashes) N95.1 Active 549191036 Problem DM neuro manif type II E11.49 Active 91834156 Problem Other seasonal allergic rhinitis J30.2 Active 103057867 Problem Other allergic rhinitis J30.89 Active 920756112 Problem Gastroesophageal reflux disease, esophagitis pre sence not specified K21.9 Active 119825969 Problem Tobacco abuse Z72.0 Active 416729 000 Problem Essential hypertension I10 Active 13473172 Problem Hypothyroidism (acquired) E03.9 Acti ve 954723434 Problem COPD exacerbation J44.1 Active 19 6313272 Problem Allergic rhinitis, unspecified seasonality, unspecifie d trigger J30.9 Active 83235137 Problem Gastroesophageal reflux disease without esophagitis K21.9 Active 315864204 Problem Constipation by delayed colonic transit K59.01 Active 12384720 Problem OAB (overactive bladder) N32.81 Activ e 822198941 Problem Seasonal allergic rhinitis due to other allergic trigger J30.89 Active 972451249 Problem Seasonal allergic rhinitis due to pollen J30.1 Active 92504059 Problem 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, without long-term current use of insulin E11.610 Active 371929958 Problem Diabetic polyneuropathy associated with type 2 d iabetes mellitus E11.42 Active 161320703 Problem Cigarette nicotine dependence without complication F17.210 Active 25847440 ALLERGIES No Information ENCOUNTERS Encounter Location Date Diagnosis [facility] [address] [facility] [id number] [address] [place] [address] Dec, [place] [address] [facility] [id number] [place] [phone] Oct, [place] [address] [place] [id number] [place] [phone] Sep, Paranoid schizophrenia F20.0 [place] [address] [place] [id number] [address] [place] [phone] Sep, [facility] [address] [place] [id number] [address] [place] [phone] Sep, [place] [address] [place] [id number] [address] [place] [address] Sep, Encounter for immunization Z 23 [facility] [address] [facility] [id number] [address] [place] [address] Sep, Morbid obesity E66.01 ; Heat rash L74.0 and Closed fracture of right ankle, sequela S82.891S [facility] [address] [facility] [id number] [address] [place] [address] Sep, [place] [address] [place] [id number] [address] [place] [phone] Sep, Schizoaffective disorder, de pressive type F25.1 [facility] [address] [place] [id number] [address] [place] [address] Sep, [place] [address] [id number] [address] [place] [address] 14 Sep, 2018 [facility] [address] [id number] [address] [place] [address] 14 Sep, 2018 [facility] [address] [id number] [address] [place] [id number] 13 Sep, 2018 [facility] [address] [id number] [address] [place] [phone] Sep, [facility] [address] [id number] [address] [place] [address] Sep, [facility] [address] [id number] [address] [place] [phone] Sep, [facility] [address] [id number] [address] [place] [phone] Sep, [facility] [address] [id number] [address] [place] [address] Sep, [facility] [address] [id number] [address] [place] [phone] August, Paranoid schizophrenia F20.0 [facility] [address] [id number] [address] [place] [address] August, [facility] [address] [id number] [address] [place] [address] August, [facility] [address] [id number] [address] [place] [address] August, [facility] [address] [facility] [id number] [address] [place] [address] August, Type 2 diabetes mellitus wit hout complication, without long-term current use of insulin E11.9 ; Closed fracture of right ankle, initial encounter S82.891A ; Constipation by delayed colonic transit K59.01 ; Osteoporosis with pathological fracture, initial encounter M80.00XA and Encounter for immunization Z23 [facility] [address] [id number] [address] [place] [address] August, [facility] [address] [place] [address] August, [facility] [address] [place] [phone] August, Acquired deformity of muscul oskeletal system, unspecified M95.9 [facility] [address] [place] [address] August, Paranoid schizophrenia F20.0 [facility] [address] [id number] [address] [place] [address] August, [place] [address] [place] [address] Jul, [place] [address] [place] [id number] [address] [place] [address] Jul, Diabetic polyneuropathy asso ciated with type 2 diabetes mellitus E11.42 ; Paranoid schizophrenia F20.0 ; Preoperative clearance Z01.818 and Morbid obesity E66.01 [place] [address] [place] [address] Jul, Paranoid schizophrenia F20.0 [facility] [address] [place] [id number] [address] [place] [address] Jul, [place] [address] [place] [id number] [address] [place] [address] Jul, [facility] [address] [place] [id number] [address] [place] [address] Jul, Cigarette nicotine dependenc e without complication F17.210 [facility] [address] [place] [id number] [address] [place] [address] Jul, Type 2 diabetes mellitus wit hout complication, without long-term current use of insulin E11.9 and Hypothyroidism (acquired) E03.9 [facility] [address] [place] [address] Jul, Encounter for Medicare laureen mccain wellness exam Z00.00 ; Morbid obesity due to excess calories E66.01 ; Diabetic polyneuropathy associated with type 2 diabetes mellitus E11.42 ; Chronic obstructive pulmonary disease, unspecified COPD type J44.9 ; Schizoaffective disorder, depressive type F25.1 ; Hypothyroidism (acquired) E03.9 and Morbid obesity E66.01 [place] [address] [place] [id number] [place] [phone] Jun, Gastroesophageal reflux dise ase without esophagitis K21.9 [place] [address] [place] [id number] [place] [address] Jun, Paranoid schizophrenia F20.0 [place] [address] [place] [id number] [place] [phone] Jun, Schizoaffective disorder, de pressive type F25.1 [place] [address] [address] Jun, [place] [address] [place] [id number] [place] [address] Jun, Schizoaffective disorder, de pressive type F25.1 [place] [address] [place] [id number] [place] [id number] Jun, Cigarette nicotine dependenc e without complication F17.210 [place] [address] [place] [id number] [address] [place] [phone] 18 Jun, 2018 Type 2 diabetes mellitus wit hout complication, without long-term current use of insulin E11.9 [place] [address] [place] [id number] [address] [place] [phone] 15 Jun, 2018 [place] [address] [place] [id number] [place] [address] Jun, [place] [address] [place] [id number] [address] [place] [address] Jun, [place] [address] [place] [address] 07 Jun, 2018 [facility] [address] [place] [id number] [address] [place] [phone] Jun, [facility] [address] [place] [id number] [place] [address] Jun, Paranoid schizophrenia F20.0 ; Type 2 diabetes mellitus without complication, without long-term current use of insulin E11.9 ; Hypothyroidism (acquired) E03.9 and Morbid obesity E66.01 [facility] [address] [place] [id number] [place] [phone] 28 May, 2018 Paranoid schizophrenia F20.0 [place] [address] [place] [id number] [place] [address] 20 May, 2018 Hypothyroidism (acquired) E0 3.9 and Dyslipidemia E78.5 [place] [address] [address] 19 May, 2018 Cigarette nicotine dependenc e without complication F17.210 [place] [address] [address] 18 May, 2018 [place] [address] [address] 14 May, 2018 Type 2 diabetes mellitus wit hout complication, without long-term current use of insulin E11.9 ; Essential hypertension I10 ; Hypothyroidism (acquired) E03.9 and Dyslipidemia E78.5 [place] [address] [place] [id number] 13 May, 2018 [facility] [address] [place] [id number] [place] [id number] 08 May, 2018 Schizoaffective disorder, de pressive type F25.1 [facility] [address] [place] [id number] [place] [phone] 08 May, 2018 Paranoid schizophrenia F20.0 [facility] [address] [address] 07 May, 2018 [facility] [address] [place] [address] 07 May, 20 19 [facility] [address] [address] May, [facility] [address] [address] May, Type 2 diabetes mellitus wit hout complication, without long-term current use of insulin E11.9 ; Essential hypertension I10 ; Hypothyroidism (acquired) E03.9 and Dyslipidemia E78.5 [place] [address] [address] May, [facility] [address] [address] 04 May, 2018 Acute nasopharyngitis J00 [facility] [address] [address] May, Allergic rhinitis, unspecifi ed seasonality, unspecified trigger J30.9 [facility] [address] [address] May, [facility] [address] [place] [id number] [place] [phone] Apr, Schizoaffective disorder, de pressive type F25.1 [place] [address] [place] [id number] [place] [address] Apr, [facility] [address] [place] [id number] [place] [address] Apr, Cigarette nicotine dependenc e without complication F17.210 [facility] [address] [place] [id number] [place] [address] Apr, [facility] [address] [place] [id number] [address] [place] [address] Apr, Cigarette nicotine dependenc e without complication F17.210 [facility] [address] [facility] [id number] [address] [place] [phone] Apr, [facility] [address] [facility] [id number] [address] [place] [phone] Apr, Migraine without aura and wi thout status migrainosus, not intractable G43.009 [facility] [address] [facility] [id number] [address] [place] [address] Apr, Migraine without aura and wi thout status migrainosus, not intractable G43.009 [facility] [address] [facility] [id number] [address] [place] [address] Mar, Schizoaffective disorder, de pressive type F25.1 ; BMI 45.0-49.9, adult Z68.42 and BMI 40.0-44.9, adult Z68.41 [place] [address] [place] [id number] [place] [address] Mar, Primary insomnia F51.01 [facility] [address] [facility] [id number] [address] [place] [phone] Mar, [place] [address] [place] [id number] [place] [address] Feb, Primary insomnia F51.01 [facility] [address] [place] [id number] [address] [place] [address] Feb, [facility] [address] [place] [id number] [place] [phone] Jan, Schizoaffective disorder, de pressive type F25.1 and BMI 45.0-49.9, adult Z68.42 [facility] [address] [place] [id number] [address] [place] [phone] Jan, [facility] [address] [facility] [id number] [address] [place] [address] Jan, 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, without long-term current use of insulin E11.610 ; Menopausal syndrome (hot flashes) N95.1 and BMI 40.0-44.9, adult Z68.41 [place] [address] [place] [id number] [address] [place] [address] Jan, Paranoid schizophrenia F20.0 [place] [address] [facility] [id number] [address] [place] [phone] Jan, [place] [address] [place] [id number] [place] [address] Jan, Schizoaffective disorder, de pressive type F25.1 [place] [address] [place] [id number] [place] [phone] Jan, [place] [address] [place] [id number] [place] [address] Jan, Chronic obstructive pulmonar y disease, unspecified COPD type J44.9 ; BMI 45.0-49.9, adult Z68.42 ; Type 2 diabetes mellitus without complication, without long-term current use of insulin E11.9 ; Hypothyroidism (acquired) E03.9 ; Encounter for immunization Z23 ; Gastroesophageal reflux disease without esophagitis K21.9 ; Primary insomnia F51.01 and Acute nasopharyngitis J00 [place] [address] [place] [id number] [address] [place] [address] Dec, [place] [address] [place] [id number] [place] [address] Dec, Schizoaffective disorder, de pressive type F25.1 and BMI 45.0-49.9, adult Z68.42 [place] [address] [place] [id number] [place] [phone] Dec, [place] [address] [place] [id number] [address] [place] [address] Dec, [place] [address] [place] [id number] [place] [address] Dec, Acute non-recurrent frontal sinusitis J01.10 [place] [address] [id number] [address] [place] [phone] 18 Dec, 2017 Acute non-recurrent frontal sinusitis J01.10 ; Weakness of left leg R29.898 ; At high risk for falls Z91.81 and BMI 45.0-49.9, adult Z68.42 [facility] [address] [facility] [id number] [address] [place] [address] Dec, [facility] [address] [id number] [address] [place] [id number] Dec, [facility] [address] [facility] [id number] [address] [place] [address] Dec, Schizoaffective disorder, de pressive type F25.1 [facility] [address] [id number] [address] [place] [phone] Dec, Acute nasopharyngitis J00 [facility] [address] [facility] [id number] [address] [place] [address] Dec, Schizoaffective disorder, de pressive type F25.1 [facility] [address] [id number] [address] [place] [phone] Dec, [facility] [address] [facility] [id number] [address] [place] [address] Nov, Schizoaffective disorder, de pressive type F25.1 and BMI 45.0-49.9, adult Z68.42 [facility] [address] [facility] [id number] [address] [place] [address] Nov, [facility] [address] [id number] [address] [place] [address] Nov, [facility] [address] [facility] [id number] [address] [place] [address] Nov, Schizoaffective disorder, de pressive type F25.1 [facility] [address] [facility] [id number] [address] [place] [address] Nov, Well woman exam Z01.419 ; BM I 45.0-49.9, adult Z68.42 ; Screening breast examination Z12.31 and Dietary counseling and surveillance Z71.3 [place] [address] [place] [address] 10 Nov, 2017 Paranoid schizophrenia F20.0 [place] [address] [place] [phone] 09 Nov, 2017 Gastroesophageal reflux dise ase, esophagitis presence not specified K21.9 [place] [address] [place] [id number] [address] [place] [id number] Oct, Paranoid schizophrenia F20.0 [place] [id number] [place] [address] Oct, Chronic pain syndrome G89.4 and Schizoaf fective disorder, depressive type F25.1 [place] [address] [place] [id number] [place] [address] Oct, Chronic pain syndrome G89.4 and Schizoaffective disorder, depressive type F25.1 [place] [address] [address] 16 Oct, 2017 Type 2 diabetes mellitus wit hout complication, without long-term current use of insulin E11.9 [place] [address] [address] 12 Oct, 2017 Essential hypertension I10 a nd DM neuro manif type II E11.49 [place] [address] [place] [id number] [place] [address] 11 Oct, 2017 [place] [address] [address] Oct, Schizoaffective disorder, de pressive type F25.1 and BMI 45.0-49.9, adult Z68.42 [place] [address] [place] [id number] [place] [address] Oct, [place] [address] [place] [id number] [place] [address] Oct, Paranoid schizophrenia F20.0 [facility] [address] [place] [id number] [place] [address] 10 Oct, 2017 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, without long-term current use of insulin E11.610 ; Essential hypertension I10 ; Hypothyroidism (acquired) E03.9 ; Chronic obstructive pulmonary disease, unspecified COPD type J44.9 and Diabetic polyneuropathy associated with type 2 diabetes mellitus E11.42 [facility] [address] [place] [id number] [place] [address] Sep, Paranoid schizophrenia F20.0 [place] [address] [place] [id number] [place] [address] Sep, Paranoid schizophrenia F20.0 and BMI 45.0-49.9, adult Z68.42 [place] [address] [place] [id number] [place] [address] Sep, Schizoaffective disorder, de pressive type F25.1 [place] [address] [place] [id number] [place] [address] Sep, [facility] [address] [place] [id number] [place] [address] Sep, Paranoid schizophrenia F20.0 [place] [address] [place] [id number] [place] [address] Sep, [facility] [address] [place] [id number] [place] [phone] Sep, Hypothyroidism (acquired) E0 3.9 [facility] [address] [place] [id number] [place] [phone] Sep, [place] [address] [place] [id number] [place] [address] August, Schizoaffective disorder, de pressive type F25.1 [place] [address] [address] August, [facility] [address] [address] August, [facility] [address] [place] [id number] [place] [address] August, [facility] [address] [address] August, Paranoid schizophrenia F20.0 [facility] [address] [place] [id number] [place] [address] August, History of lupus Z87.39 and Chronic pain syndrome G89.4 [place] [address] [address] August, [facility] [address] [address] August, Seasonal allergic rhinitis, unspecified trigger J30.2 and BMI 45.0-49.9, adult Z68.42 [place] [address] [address] Jul, Schizoaffective disorder, de pressive type F25.1 [place] [address] [address] Jul, [place] [address] [address] Jul, Hypothyroidism (acquired) E0 3.9 [facility] [address] [address] 11 Jul, 2017 Chronic obstructive pulmonar y disease, unspecified COPD type J44.9 and Type 2 diabetes mellitus without complication, without long-term current use of insulin E11.9 [place] [address] [place] [id number] [place] [address] Jul, Paranoid schizophrenia F20.0 [facility] [address] [address] Jun, Hypothyroidism (acquired) E0 3.9 and Seasonal allergic rhinitis due to pollen J30.1 [facility] [address] [address] Jun, Shortness of breath at rest R06.02 ; COPD exacerbation J44.1 and BMI 45.0-49.9, adult Z68.42 [facility] [address] [address] Jun, [facility] [address] [address] Jun, Paranoid schizophrenia F20.0 ; Depression with anxiety F41.8 and BMI 45.0-49.9, adult Z68.42 [facility] [address] [address] 20 Jun, 2017 Schizoaffective disorder, de pressive type F25.1 [facility] [id number] [place] [id number] Jun, Dental caries K02.9 [place] [address] [address] Jun, Paranoid schizophrenia F20.0 [facility] [address] [address] May, Migraine without aura and wi thout status migrainosus, not intractable G43.009 ; DM neuro manif type II E11.49 and Type 2 diabetes mellitus without complication, without long-term current use of insulin E11.9 [facility] [address] [address] May, Migraine without aura and wi thout status migrainosus, not intractable G43.009 [facility] [address] [place] [address] [id number] [place] [id number] May, Depression with anxiety F41. 8 [facility] [id number] [place] [id number] May, [facility] [address] [place] [id number] [place] [id number] May, [place] [address] [address] [address] [address] May, [place] [address] [address] May, Hypothyroidism (acquired) E0 3.9 [place] [address] [address] May, Paranoid schizophrenia F20.0 [place] [address] [address] May, Type 2 diabetes mellitus wit hout [...] N32.81 and Controlled substance agreement signed Z79.899 [place] [address] [place] [id number] [address] [place] [address] May, Controlled substance agreeme nt signed Z79.899 [place] [address] [place] [id number] [address] [place] [phone] Apr, [facility] [address] [place] [id number] [address] [place] [id number] Apr, Dental examination Z01.20 [place] [address] [address] Apr, Paranoid schizophrenia F20.0 [facility] [address] [facility] [id number] [address] [place] [phone] Apr, Hypertension, unspecified ty pe I10 [facility] [address] [facility] [id number] [address] [place] [phone] Apr, Paranoid schizophrenia F20.0 [facility] [address] [place] [id number] [address] [place] [phone] Apr, [facility] [address] [place] [id number] [address] [place] [phone] Apr, Tobacco abuse Z72.0 [facility] [address] [place] [id number] [place] [address] Apr, [facility] [address] [place] [id number] [address] [place] [phone] Mar, [facility] [address] [address] Mar, Paranoid schizophrenia F20.0 and BMI 45.0-49.9, adult Z68.42 [facility] [address] [address] Mar, Schizoaffective disorder, de pressive type F25.1 [facility] [address] [place] [phone] Mar, [facility] [address] [address] Mar, Schizoaffective disorder, de pressive type F25.1 [facility] [address] [place] [id number] [address] [place] [address] Mar, Hypothyroidism, unspecified type E03.9 [facility] [address] [facility] [id number] [address] [place] [phone] Feb, Gastroenteritis K52.9 and BM I 45.0-49.9, adult Z68.42 [facility] [address] [address] Feb, [place] [address] [address] Feb, [place] [address] [address] Feb, [place] [address] [id number] Feb, [place] [address] [address] Feb, Paranoid schizophrenia F20.[address] [address] Feb, Gastroesophageal reflux dise ase without esophagitis K21.9 ; Other seasonal allergic rhinitis J30.2 ; Other allergic rhinitis J30.89 ; Tobacco abuse Z72.0 and BMI 40.0-44.9, adult Z68.[address] [address] Feb, Onychomycosis B35.1 ; Callus of foot L84 and DM neuro manif type II E11.[address] [address] Jan, Chronic allergic rhinitis J3 0.[address] [address] Jan, [address] [address] Jan, Schizoaffective disorder, de pressive type F25.[address] [address] Jan, [facility] [address] [place] [id number] [address] [place] [phone] 07 Jan, 2017 Sore throat J02.9 and Season al allergic rhinitis due to other allergic trigger J30.89 [facility] [address] [facility] [id number] [address] [place] [phone] 04 Jan, 2017 [facility] [address] [facility] [id number] [address] [place] [phone] Jan, [facility] [address] [facility] [id number] [address] [place] [phone] Jan, Chronic allergic rhinitis J3 0.9 [facility] [address] [facility] [id number] [address] [place] [address] Dec, Paranoid schizophrenia F20.0 ; Primary insomnia F51.01 and Schizoaffective disorder, depressive type F25.1 [facility] [address] [facility] [id number] [address] [place] [address] Dec, Chronic pain syndrome G89.4 ; Cervicalgia of hbgujqyt-axmzhxy-ticjz region M54.2 ; Menopausal syndrome (hot flashes) N95.1 and Encounter for immunization Z23 [facility] [address] [facility] [id number] [address] [place] [phone] 14 Dec, 2016 [facility] [address] [place] [id number] [address] [place] [phone] Dec, [facility] [address] [facility] [id number] [address] [place] [phone] 08 Dec, 2016 Paranoid schizophrenia F20.0 [facility] [address] [facility] [id number] [address] [place] [phone] Dec, Schizoaffective disorder, de pressive type F25.1 [facility] [address] [facility] [id number] [address] [place] [address] Nov, Hypothyroidism, unspecified type E03.9 [facility] [address] [facility] [id number] [address] [place] [address] Nov, Acute seasonal allergic rhin itis due to other allergen J30.89 [facility] [address] [facility] [id number] [address] [place] [address] Nov, [place] [address] [facility] [id number] [address] [place] [phone] Nov, Hypothyroidism, unspecified type E03.9 and Other elevated white blood cell (WBC) count D72.828 [place] [address] [place] [id number] [address] [place] [phone] Nov, Schizoaffective disorder, de pressive type F25.1 [place] [address] [facility] [id number] [address] [place] [phone] Nov, Paranoid schizophrenia F20.0 [place] [address] [place] [id number] [place] [phone] Nov, Type 2 diabetes mellitus wit hout complication, without long-term current use of insulin E11.9 ; Morbid obesity due to excess calories E66.01 and Chronic pain syndrome G89.4 [place] [address] [place] [id number] [address] [place] [phone] Oct, Paranoid schizophrenia F20.0 [place] [address] [facility] [id number] [address] [place] [phone] Oct, [place] [address] [place] [id number] [place] [phone] Oct, Schizoaffective disorder, de pressive type F25.1 [place] [address] [place] [id number] [address] [place] [address] Oct, Hypothyroidism, unspecified type E03.9 and Other elevated white blood cell (WBC) count D72.828 [place] [address] [facility] [id number] [address] [place] [address] Oct, Morbid obesity due to excess calories E66.01 ; Chronic obstructive pulmonary disease, unspecified COPD type J44.9 ; History of lupus Z87.39 ; Hypothyroidism, unspecified type E03.9 ; Gastroesophageal reflux disease without esophagitis K21.9 ; Primary insomnia F51.01 and Chronic pain syndrome G89.4 [place] [address] [id number] [address] [place] [phone] Sep, [facility] [address] [id number] [address] [place] [phone] Sep, [facility] [address] [id number] [address] [place] [phone] Sep, [facility] [address] [id number] [address] [place] [phone] Sep, Paranoid schizophrenia F20.0 [facility] [address] [id number] [address] [place] [address] Sep, [facility] [address] [id number] [address] [place] [phone] Sep, Paranoid schizophrenia F20.0 [facility] [address] [id number] [address] [place] [phone] Sep, [facility] [address] [id number] [address] [place] [phone] August, Paranoid schizophrenia F20.0 [facility] [address] [id number] [address] [place] [id number] Jul, [facility] [address] [facility] [id number] [address] [place] [phone] Jul, Type 2 diabetes mellitus wit hout complication, without long-term current use of insulin E11.9 ; Morbid obesity due to excess calories E66.01 ; Depression with anxiety F41.8 ; Hypothyroidism, unspecified type E03.9 ; Seasonal allergic rhinitis due to other allergic trigger J30.89 ; Pain, dental K08.89 and Gastroesophageal reflux disease without esophagitis K21.9 [facility] [address] [id number] [address] [place] [id number] Jul, Dental examination Z01.20 [facility] [address] [facility] [id number] [address] [place] [phone] 07 Jul, 2016 Paranoid schizophrenia F20.0 [facility] [address] [address] 13 Jun, 2016 Paranoid schizophrenia F20.0 and Depression with anxiety F41.8 [place] [address] [address] 10 Jun, 2016 Paranoid schizophrenia F20.0 and Depression with anxiety F41.8 [place] [address] [address] 09 Jun, 2016 [place] [address] [address] Jun, [facility] [place] [address] [address] Jun, Seasonal allergic rhinitis d ue to other allergic trigger J30.89 [facility] [address] [address] May, Sore throat J02.9 ; Other vi ral agents as the cause of diseases classified elsewhere B97.89 and Acute upper respiratory infection, unspecified J06.9 [place] [address] [address] May, Paranoid schizophrenia F20.0 and Depression with anxiety F41.8 [place] [address] [address] Apr, Other seasonal allergic rhin itis J30.2 [place] [address] [address] Apr, Paranoid schizophrenia F20.0 and Depression with anxiety F41.8 [facility] [address] [address] Apr, Bronchitis J40 and Sore thro at J02.9 [place] [address] [address] Apr, Type 2 diabetes mellitus wit hout complication, without long-term current use of insulin E11.9 [facility] [address] [facility] [id number] [address] [place] [phone] Apr, Bronchitis J40 [facility] [address] [facility] [id number] [address] [place] [phone] Apr, [facility] [address] [place] [id number] [address] [place] [phone] Apr, [facility] [address] [place] [id number] [address] [place] [id number] Mar, Type 2 diabetes mellitus wit hout [...] Other seasonal allergic rhinitis J30.2 [place] [address] [place] [id number] [address] [place] [phone] Mar, Paranoid schizophrenia F20.0 and Depression with anxiety F41.8 [place] [address] [place] [id number] [address] [place] [phone] 30 Feb, 2016 [place] [id number] [place] [phone] Feb, [place] [address] [place] [phone] Feb, [place] [address] [place] [id number] [address] [place] [phone] Feb, [place] [address] [address] Feb, Type 2 diabetes mellitus wit hout complication, without long-term current use of insulin E11.9 ; ARIAS on CPAP G47.33 and Preoperative evaluation to rule out surgical contraindication Z01.818 [facility] [address] [id number] [address] [place] [phone] Feb, Paranoid schizophrenia F20.0 and Depression with anxiety F41.8 [facility] [address] [id number] [address] [place] [phone] Jan, [facility] [address] [id number] [address] [place] [phone] Jan, Paranoid schizophrenia F20.0 and Depression with anxiety F41.8 [facility] [address] [id number] [address] [place] [id number] 17 Jan, 2016 [facility] [address] [id number] [address] [place] [phone] 14 Jan, 2016 Muscle strain T14.8 [facility] [address] [id number] [address] [place] [phone] 10 Jan, 2016 Paranoid schizophrenia F20.0 [facility] [address] [id number] [address] [place] [phone] Jan, [facility] [address] [id number] [address] [place] [phone] 05 Jan, 2016 Paranoid schizophrenia F20.0 and Depression with anxiety F41.8 [facility] [address] [id number] [address] [place] [phone] 05 Jan, 2016 [facility] [address] [id number] [address] [place] [phone] Jan, [facility] [address] [id number] [address] [place] [phone] 28 Dec, 2015 [facility] [address] [id number] [address] [place] [phone] 23 Sep, 2016 Paranoid schizophrenia F20.0 [facility] [address] [id number] [address] [place] [phone] 16 Sep, 2015 Paranoid schizophrenia F20.0 and Depression with anxiety F41.8 [facility] [address] [id number] [address] [place] [phone] Nov, [facility] [address] [id number] [address] [place] [phone] Nov, Paranoid schizophrenia F20.0 [facility] [address] [id number] [address] [place] [phone] Nov, Paranoid schizophrenia F20.0 and Depression with anxiety F41.8 [facility] [address] [facility] [id number] [address] [place] [phone] Nov, Type 2 diabetes mellitus wit hout complication, without long-term current use of insulin E11.9 ; Paranoid schizophrenia F20.0 ; Chronic obstructive pulmonary disease, unspecified COPD type J44.9 ; Morbid obesity due to excess calories E66.01 and Parkinsonian tremor G20 [facility] [address] [id number] [address] [place] [phone] Nov, [facility] [address] [facility] [id number] [address] [place] [phone] Oct, Paranoid schizophrenia F20.0 [facility] [address] [facility] [id number] [address] [place] [phone] Oct, Paranoid schizophrenia F20.0 [facility] [address] [id number] [address] [place] [phone] Oct, Paranoid schizophrenia F20.0 and Depression with anxiety F41.8 [facility] [address] [facility] [id number] [address] [place] [phone] Oct, [facility] [address] [facility] [id number] [address] [place] [phone] Oct, Paranoid schizophrenia F20.0 and Depression with anxiety F41.8 [facility] [address] [facility] [id number] [address] [place] [phone] Oct, Nasal sore J34.89 [facility] [address] [facility] [id number] [address] [place] [phone] Oct, Type 2 diabetes mellitus wit hout complication, without long-term current use of insulin E11.9 ; Depression with anxiety F41.8 ; Hypothyroidism, unspecified type E03.9 and History of lupus Z87.39 [facility] [address] [facility] [id number] [address] [place] [phone] Oct, [facility] [address] [facility] [id number] [address] [place] [phone] Oct, Type 2 diabetes mellitus wit hout [...] of lupus Z87.39 [facility] [address] [place] [id number] [address] [place] [id number] Feb, [facility] [address] [facility] [id number] [address] [place] [phone] Jan, [facility] [address] [facility] [id number] [address] [place] [phone] Jan, [facility] [address] [facility] [id number] [address] [place] [phone] Jan, [facility] [address] [facility] [id number] [address] [place] [phone] Dec, [facility] [address] [facility] [id number] [address] [place] [phone] Nov, [facility] [address] [facility] [id number] [address] [place] [phone] Nov, [facility] [address] [facility] [id number] [address] [place] [phone] Oct, [facility] [address] [id number] [address] [place] [address], [place] [address] Oct, [facility] [address] [id number] [address] [place] [phone] Oct, [facility] [address] [id number] [address] [place] [address], [place] [address] Sep, Allergic rhinitis 477.9 [facility] [address] [id number] [address] [place] [phone] Sep, Rhinitis, allergic 477.9 [facility] [address] [id number] [address] [place] [phone] Sep, Rhinitis, allergic 477.9 [facility] [address] [id number] [address] [place] [phone] Sep, [facility] [address] [id number] [address] [place] [address], [place] [address] August, [facility] [address] [id number] [address] [place] [address] August, [facility] [address] [id number] [address] [place] [phone] August, [facility] [address] [id number] [address] [place] [phone] 28 Jul, 2014 [facility] [address] [id number] [address] [place] [phone] 14 Jul, 2014 [facility] [address] [id number] [address] [place] [phone] 13 Jul, 2014 [facility] [address] [id number] [address] [place] [phone] 16 Jun, 2014 [facility] [address] [id number] [address] [place] [phone] 16 Jun, 2014 [facility] [address] [id number] [address] [place] [phone] Jun, [facility] [address] [id number] [address] [place] [address], [place] [address] Jun, [facility] [address] [id number] [address] [place] [address], [place] [address] Jun, [facility] [address] [id number] [address] [place] [address], [place] [address] Jun, [facility] [address] [id number] [address] [place] [address], [place] [address] Jun, [facility] [address] [id number] [address] [place] [address], [place] [address] Jun, [facility] [address] [id number] [address] [place] [address], [place] [address] May, [facility] [address] [id number] [address] [place] [address], [place] [address] May, [facility] [address] [id number] [address] [place] [address], [place] [address] May, [facility] [address] [id number] [address] [place] [address], [place] [address] May, [facility] [address] [id number] [address] [place] [address], [place] [address] Apr, [facility] [address] [id number] [address] [place] [address], [place] [address] Mar, [facility] [address] [id number] [address] [place] [address], [place] [address] Mar, [facility] [address] [id number] [address] [place] [address], [place] [address] Mar, [facility] [address] [id number] [address] [place] [address], [place] [address] Mar, [facility] [address] [id number] [address] [place] [address], [place] [address] Mar, [facility] [address] [id number] [address] [place] [address], [place] [address] Mar, [facility] [address] [id number] [address] [place] [address], [place] [address] Mar, [facility] [address] [id number] [address] [place] [address], [place] [address] Mar, [facility] [address] [id number] [address] [place] [address], [place] [address] Mar, [facility] [address] [id number] [address] [place] [address], [place] [address] Feb, [facility] [address] [id number] [address] [place] [address], [place] [address] Feb, [facility] [address] [id number] [address] [place] [address], [place] [address] Feb, [facility] [address] [id number] [address] [place] [address], [place] [address] Feb, [facility] [address] [id number] [address] [place] [address], [place] [address] Feb, [facility] [address] [id number] [address] [place] [address], [place] [address] Feb, [facility] [address] [id number] [address] [place] [address], [place] [address] Feb, [facility] [address] [id number] [address] [place] [address], [place] [address] Feb, [facility] [address] [id number] [address] [place] [address], [place] [address] Jan, [facility] [address] [id number] [address] [place] [address], [place] [address] Jan, [facility] [address] [id number] [address] [place] [address], [place] [address] Jan, [facility] [address] [id number] [address] [place] [address], [place] [address] Jan, [facility] [address] [id number] [address] [place] [address], [place] [address] 15 Jan, 2014 [facility] [address] [id number] [address] [place] [address], [place] [address] 15 Jan, 2014 [facility] [address] [id number] [address] [place] [address], [place] [address] 14 Jan, 2014 [facility] [address] [id number] [address] [place] [address], [place] [address] 14 Jan, 2014 [facility] [address] [id number] [address] [place] [address], [place] [address] 14 Jan, 2014 [facility] [address] [id number] [address] [place] [address], [place] [address] 14 Jan, 2014 [facility] [address] [id number] [address] [place] [address], [place] [address] 18 Dec, 2013 [facility] [address] [id number] [address] [place] [address], [place] [address] 18 Dec, 2013 [facility] [address] [id number] [address] [place] [address], [place] [address] 10 Dec, 2013 [facility] [address] [id number] [address] [place] [address], [place] [address] 10 Dec, 2013 [facility] [address] [id number] [address] [place] [address], [place] [address] Nov, [facility] [address] [id number] [address] [place] [address], [place] [address] Nov, [facility] [address] [id number] [address] [place] [address], [place] [address] Nov, [facility] [address] [id number] [address] [place] [address], [place] [address] Nov, [facility] [address] [id number] [address] [place] [address], [place] [address] Nov, [facility] [address] [id number] [address] [place] [address] Oct, [facility] [address] [id number] [facility] [address] Oct, [facility] [address] [id number] [address] [place] [address], [place] [address] Oct, [facility] [address] [id number] [address] [place] [address], [place] [address] Oct, [facility] [address] [id number] [address] [place] [address], [place] [address] Sep, [facility] [address] [id number] [address] [place] [address], [place] [address] Sep, [facility] [address] [id number] [address] [place] [address], [place] [address] Sep, [facility] [address] [id number] [address] [place] [address], [place] [address] Sep, [facility] [address] [id number] [address] [place] [address], [place] [address] Sep, [facility] [address] [id number] [address] [place] [address], [place] [address] Sep, [facility] [address] [id number] [address] [place] [address], [place] [address] Sep, [facility] [address] [id number] [address] [place] [address], [place] [address] Sep, [facility] [address] [id number] [address] [place] [address], [place] [address] August, [facility] [address] [id number] [address] [place] [address], [place] [address] August, [facility] [address] [id number] [address] [place] [address], [place] [address] August, [facility] [address] [id number] [address] [place] [address], [place] [address] August, [facility] [address] [id number] [facility] [address] August, [facility] [address] [id number] [address] [place] [address], [place] [address] August, [facility] [address] [id number] [address] [place] [address], [place] [address] August, [facility] [address] [id number] [address] [place] [address], [place] [address] Jul, [facility] [address] [id number] [address] [place] [address], [place] [address] Jul, [facility] [address] [id number] [address] [place] [address], [place] [address] Jul, [facility] [address] [id number] [address] [place] [address], [place] [address] Jul, [facility] [address] [id number] [address] [place] [address], [place] [address] Jul, [facility] [address] [id number] [address] [place] [address], [place] [address] Jul, [facility] [address] [id number] [address] [place] [address], [place] [address] Jul, [facility] [address] [id number] [address] [place] [address], [place] [address] Jul, [facility] [address] [id number] [address] [place] [address], [place] [address] Jul, [facility] [address] [id number] [address] [place] [address], [place] [address] Jul, [facility] [address] [id number] [address] [place] [address], [place] [address] Jul, [facility] [address] [id number] [address] [place] [address], [place] [address] Jul, [facility] [address] [id number] [address] [place] [address], [place] [address] Jun, [facility] [address] [id number] [address] [place] [address], [place] [address] Jun, [facility] [address] [id number] [address] [place] [address], [place] [address] Jun, [facility] [address] [id number] [address] [place] [address], [place] [address] Jun, [facility] [address] [id number] [address] [place] [address], [place] [address] Jun, [facility] [address] [id number] [address] [place] [address], [place] [address] May, [facility] [address] [id number] [address] [place] [address], [place] [address] May, [facility] [address] [id number] [address] [place] [address], [place] [address] May, [facility] [address] [id number] [address] [place] [address], [place] [address] May, [facility] [address] [id number] [address] [place] [address], [place] [address] May, [facility] [address] [id number] [address] [place] [address], [place] [address] May, [facility] [address] [id number] [address] [place] [address], [place] [address] May, [facility] [address] [id number] [address] [place] [address], [place] [address] May, [facility] [address] [id number] [address] [place] [address], [place] [address] Mar, [facility] [address] [id number] [address] [place] [address], [place] [address] Mar, [facility] [address] [id number] [address] [place] [address], [place] [address] Mar, [facility] [address] [id number] [address] [place] [address], [place] [address] Mar, [facility] [address] [id number] [address] [place] [address], [place] [address] Mar, [facility] [address] [id number] [address] [place] [address], [place] [address] Mar, [facility] [address] [id number] [address] [place] [address], [place] [address] Feb, [facility] [address] [id number] [address] [place] [address], [place] [address] Feb, [facility] [address] [id number] [address] [place] [address], [place] [address] Jan, [facility] [address] [id number] [address] [place] [address], [place] [address] Jan, [facility] [address] [id number] [address] [place] [address], [place] [address] Jan, [facility] [address] [id number] [address] [place] [address], [place] [address] Jan, [facility] [address] [id number] [address] [place] [address], [place] [address] Jan, [facility] [address] [id number] [address] [place] [address], [place] [address] Jan, [facility] [address] [id number] [address] [place] [address] Jan, [facility] [address] [id number] [address] [place] [address] Jan, [facility] [address] [id number] [address] [place] [address], [place] [address] 08 Jan, 2013 [facility] [address] [id number] [address] [place] [address] Jan, [facility] [address] [id number] [address] [place] [address] Dec, [facility] [address] [id number] [address] [place] [address], [place] [address] Nov, [facility] [address] [id number] [address] [place] [address], [place] [address] Nov, [facility] [address] [id number] [address] [place] [address], [place] [address] Nov, [facility] [address] [id number] [address] [place] [address], [place] [address] Oct, [facility] [address] [id number] [address] [place] [address], [place] [address] Oct, [facility] [address] [id number] [address] [place] [address], [place] [address] August, [facility] [address] [id number] [address] [place] [address], [place] [address] Apr, [facility] [address] [id number] [address] [place] [address], [place] [address] Apr, [facility] [address] [id number] [address] [place] [address], [place] [address] Feb, [facility] [address] [id number] [address] [place] [address], [place] [address] Feb, [facility] [address] [id number] [address] [place] [address], [place] [address] Dec, [facility] [address] [id number] [address] [place] [address], [place] [address] Dec, [facility] [address] [id number] [address] [place] [address], [place] [address] Oct, [facility] [address] [id number] [address] [place] [address], [place] [address] Oct, [facility] [address] [id number] [address] [place] [address], [place] [address] Oct, [facility] [address] [id number] [facility] [address] Jul, IMMUNIZATIONS No Known Immunizations SOCIAL HISTORY [...] hospitalizations for psychosis/mental illness, last one in [facility] 4 years ago Hospitalization History broken ankle 08/2018
--- OUTSIDE RECORDS SUMMARY | 2019-07-07 04:19 | XMS REPORT ---
Author Author Alayna ARROYO Organization [facility] Address [address] [place] [address] Care Team Providers Care Market Gardener Name Role Phone ELVER ARROYO Unavailable PROBLEMS Type Condition ICD9-CM Code FHL46-YV Code Onset Dates Condition S tatus SNOMED Code Problem Depression with anxiety F41.8 Active 479708759 Problem Morbid obesity due to excess calories E66.01 Active 599644004 Problem Chronic obstructive pulmonary disease, unspecified COPD ty pe J44.9 Active 11571034 Problem Paranoid schizophrenia F20.0 Active 85052824 Problem Chronic pain syndrome G89.4 Active 838996034 Problem History of lupus Z87.39 Active 312 503697 Problem Type 2 diabetes mellitus wit hout complication, without long-term current use of insulin E11.9 Active 397996068 Problem Dyslipidemia E78.5 Active 6157523 07 Problem Migraine without aura and without status migrain osus, not intractable G43.009 Active 427582942 Problem Primary insomnia F51.01 Active 397 2004 Problem Schizoaffective disorder, depressive type F25.1 Active 87951407 Problem Menopausal syndrome (hot flashes) N95.1 Active 684917905 Problem DM neuro manif type II E11.49 Active 27721886 Problem Other seasonal allergic rhinitis J30.2 Active 095930183 Problem Other allergic rhinitis J30.89 Active 266656627 Problem Gastroesophageal reflux disease, esophagitis pre sence not specified K21.9 Active 372065243 Problem Tobacco abuse Z72.0 Active 284571 000 Problem Essential hypertension I10 Active 53316075 Problem Hypothyroidism (acquired) E03.9 Acti ve 491415659 Problem COPD exacerbation J44.1 Active 19 0825074 Problem Allergic rhinitis, unspecified seasonality, unspecifie d trigger J30.9 Active 70601214 Problem Gastroesophageal reflux disease without esophagitis K21.9 Active 276070552 Problem Constipation by delayed colonic transit K59.01 Active 15777384 Problem OAB (overactive bladder) N32.81 Activ e 419461025 Problem Seasonal allergic rhinitis due to other allergic trigger J30.89 Active 361507127 Problem Seasonal allergic rhinitis due to pollen J30.1 Active 76069096 Problem 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, without long-term current use of insulin E11.610 Active 980857106 Problem Diabetic polyneuropathy associated with type 2 d iabetes mellitus E11.42 Active 242899975 Problem Cigarette nicotine dependence without complication F17.210 Active 11708068 ALLERGIES No Information ENCOUNTERS Encounter Location Date Diagnosis [place] [address] [address] Dec, [place] [address] [address] Oct, Chronic obstructive pulmonar y disease, unspecified COPD type J44.9 [place] [address] [address] Oct, [place] [address] [address] Sep, Paranoid schizophrenia F20.0 [place] [address] [address] Sep, [place] [address] [place] [id number] [place] [address] Sep, [place] [address] [place] [id number] [place] [address] Sep, Encounter for immunization Z 23 [facility] [address] [place] [id number] [place] [address] Sep, [place] [address] [address] Sep, Closed fracture of right ank le, sequela S82.891S ; Morbid obesity E66.01 and Heat rash L74.0 [place] [address] [place] [id number] [address] [place] [address] Sep, Schizoaffective disorder, de pressive type F25.1 [facility] [address] [id number] [address] [place] [address] 18 Sep, 2018 [facility] [address] [id number] [address] [place] [address] Sep, [facility] [address] [id number] [address] [place] [address] 14 Sep, 2018 [facility] [address] [id number] [address] [place] [address] Sep, [facility] [address] [id number] [address] [place] [address] Sep, [facility] [address] [id number] [address] [place] [address] Sep, [facility] [address] [id number] [address] [place] [address] Sep, [facility] [address] [id number] [address] [place] [address] Sep, [facility] [address] [id number] [address] [place] [address] Sep, [facility] [address] [id number] [address] [place] [address] August, Paranoid schizophrenia F20.0 [facility] [address] [id number] [address] [place] [address] August, [facility] [address] [id number] [address] [place] [address] August, [facility] [address] [id number] [address] [place] [address] August, [facility] [address] [id number] [address] [place] [address] August, Type 2 diabetes mellitus wit hout complication, without long-term current use of insulin E11.9 ; Closed fracture of right ankle, initial encounter S82.891A ; Constipation by delayed colonic transit K59.01 ; Osteoporosis with pathological fracture, initial encounter M80.00XA and Encounter for immunization Z23 [facility] [address] [facility] [id number] [address] [place] [address] August, [facility] [address] [facility] [id number] [address] [place] [address] August, [facility] [address] [facility] [id number] [address] [place] [address] August, Acquired deformity of muscul oskeletal system, unspecified M95.9 [facility] [address] [facility] [id number] [address] [place] [address] August, Paranoid schizophrenia F20.0 [facility] [address] [id number] [place], [place] [address] August, [facility] [address] [facility] [id number] [address] [place] [address] Jul, [facility] [address] [facility] [id number] [address] [place] [address] Jul, Diabetic polyneuropathy asso ciated with type 2 diabetes mellitus E11.42 ; Paranoid schizophrenia F20.0 ; Preoperative clearance Z01.818 and Morbid obesity E66.01 [facility] [address] [facility] [id number] [address] [place] [address] Jul, Paranoid schizophrenia F20.0 [facility] [address] [facility] [id number] [address] [place] [address] Jul, [facility] [address] [facility] [id number] [address] [place] [address] Jul, [facility] [address] [facility] [id number] [address] [place] [address] Jul, Cigarette nicotine dependenc e without complication F17.210 [facility] [address] [facility] [id number] [address] [place] [address] Jul, Type 2 diabetes mellitus wit hout complication, without long-term current use of insulin E11.9 and Hypothyroidism (acquired) E03.9 [facility] [address] [facility] [id number] [address] [place] [address] 01 Jul, 2018 Encounter for Medicare laureen wellness exam Z00.00 ; Morbid obesity due to excess calories E66.01 ; Diabetic polyneuropathy associated with type 2 diabetes mellitus E11.42 ; Chronic obstructive pulmonary disease, unspecified COPD type J44.9 ; Schizoaffective disorder, depressive type F25.1 ; Hypothyroidism (acquired) E03.9 and Morbid obesity E66.01 [place] [address] [facility] [id number] [address] [place] [address] 28 Jun, 2018 Gastroesophageal reflux dise ase without esophagitis K21.9 [place] [address] [facility] [id number] [address] [place] [address] 28 Jun, 2018 Paranoid schizophrenia F20.0 [place] [address] [facility] [id number] [address] [place] [address] Jun, Schizoaffective disorder, de pressive type F25.1 [place] [address] [facility] [id number] [address] [place] [address] Jun, [place] [address] [facility] [id number] [address] [place] [address] Jun, Schizoaffective disorder, de pressive type F25.1 [place] [address] [facility] [id number] [address] [place] [address] Jun, Cigarette nicotine dependenc e without complication F17.210 [place] [address] [id number] [address] [place] [address] 18 Jun, 2018 Type 2 diabetes mellitus wit hout complication, without long-term current use of insulin E11.9 [place] [address] [facility] [id number] [address] [place] [address] 15 Jun, 2018 [place] [address] [facility] [id number] [address] [place] [address] 13 Jun, 2018 [place] [address] [address] Jun, [facility] [address] [address] Jun, [facility] [address] [place] [id number] [place] [address] Jun, [facility] [address] [address] Jun, Paranoid schizophrenia F20.0 ; Type 2 diabetes mellitus without complication, without long-term current use of insulin E11.9 ; Hypothyroidism (acquired) E03.9 and Morbid obesity E66.01 [place] [address] [address] 28 May, 2018 Paranoid schizophrenia F20.0 [place] [address] [address] 20 May, 2018 Hypothyroidism (acquired) E0 3.9 and Dyslipidemia E78.5 [place] [address] [address] 19 May, 2018 Cigarette nicotine dependenc e without complication F17.210 [place] [address] [address] 18 May, 2018 [facility] [address] [address] 14 May, 2018 Type 2 diabetes mellitus wit hout complication, without long-term current use of insulin E11.9 ; Essential hypertension I10 ; Hypothyroidism (acquired) E03.9 and Dyslipidemia E78.5 [place] [address] [address] 13 May, 2018 [place] [address] [address] 08 May, 2018 Schizoaffective disorder, de pressive type F25.1 [place] [address] [place] [address] 08 May, 2018 Paranoid schizophrenia F20.0 [facility] [address] [address] 07 May, 2018 Sandor [address]T [address] [place] [address] 07 May, 20 19 [place] [address] [address] May, [facility] [address] [address] May, Type 2 diabetes mellitus wit hout complication, without long-term current use of insulin E11.9 ; Essential hypertension I10 ; Hypothyroidism (acquired) E03.9 and Dyslipidemia E78.5 [place] [address] [address] May, [facility] [address] [address] May, Acute nasopharyngitis J00 [facility] [address] [address] May, Allergic rhinitis, unspecifi ed seasonality, unspecified trigger J30.9 [facility] [address] [address] May, [facility] [address] [address] Apr, Schizoaffective disorder, de pressive type F25.1 [place] [address] [address] Apr, [place] [address] [address] Apr, Cigarette nicotine dependenc e without complication F17.210 [place] [address] [address] Apr, [facility] [address] [facility] [id number] [address] [place] [address] Apr, Cigarette nicotine dependenc e without complication F17.210 [facility] [address] [facility] [id number] [address] [place] [address] Apr, [facility] [address] [facility] [id number] [address] [place] [address] Apr, Migraine without aura and wi thout status migrainosus, not intractable G43.009 [facility] [address] [facility] [id number] [address] [place] [address] Apr, Migraine without aura and wi thout status migrainosus, not intractable G43.009 [facility] [address] [facility] [id number] [address] [place] [address] Mar, Schizoaffective disorder, de pressive type F25.1 ; BMI 45.0-49.9, adult Z68.42 and BMI 40.0-44.9, adult Z68.41 [facility] [address] [place] [id number] [address] [place] [address] Mar, Primary insomnia F51.01 [facility] [address] [facility] [id number] [address] [place] [address] Mar, [facility] [address] [facility] [id number] [address] [place] [address] Feb, Primary insomnia F51.01 [facility] [address] [facility] [id number] [address] [place] [address] Feb, [facility] [address] [facility] [id number] [address] [place] [address] Jan, Schizoaffective disorder, de pressive type F25.1 and BMI 45.0-49.9, adult Z68.42 [facility] [address] [facility] [id number] [address] [place] [address] Jan, [facility] [address] [address] 16 Jan, 2018 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, without long-term current use of insulin E11.610 ; Menopausal syndrome (hot flashes) N95.1 and BMI 40.0-44.9, adult Z68.41 [facility] [address] [address] Jan, Paranoid schizophrenia F20.0 [place] [address] [address] Jan, [facility] [address] [address] Jan, Schizoaffective disorder, de pressive type F25.1 [place] [address] [address] Jan, [place] [address] [address] Jan, Chronic obstructive pulmonar y disease, unspecified COPD type J44.9 ; BMI 45.0-49.9, adult Z68.42 ; Type 2 diabetes mellitus without complication, without long-term current use of insulin E11.9 ; Hypothyroidism (acquired) E03.9 ; Encounter for immunization Z23 ; Gastroesophageal reflux disease without esophagitis K21.9 ; Primary insomnia F51.01 and Acute nasopharyngitis J00 [place] [address] [address] Dec, [place] [address] [address] Dec, Schizoaffective disorder, de pressive type F25.1 and BMI 45.0-49.9, adult Z68.42 [facility] [address] [address] Dec, [place] [address] [address] Dec, [place] [address] [id number] [address] [place] [address] 18 Dec, 2017 Acute non-recurrent frontal sinusitis J01.10 [facility] [address] [facility] [id number] [address] [place] [address] 18 Dec, 2017 Acute non-recurrent frontal sinusitis J01.10 ; Weakness of left leg R29.898 ; At high risk for falls Z91.81 and BMI 45.0-49.9, adult Z68.42 [facility] [address] [facility] [id number] [address] [place] [address] 17 Dec, 2017 [facility] [address] [facility] [id number] [address] [place] [address] Dec, [facility] [address] [facility] [id number] [address] [place] [address] Dec, Schizoaffective disorder, de pressive type F25.1 [facility] [address] [facility] [id number] [address] [place] [address] Dec, Acute nasopharyngitis J00 [facility] [address] [facility] [id number] [address] [place] [address] 05 Dec, 2017 Schizoaffective disorder, de pressive type F25.1 [facility] [address] [facility] [id number] [address] [place] [address] Dec, [facility] [address] [facility] [id number] [address] [place] [address] Nov, Schizoaffective disorder, de pressive type F25.1 and BMI 45.0-49.9, adult Z68.42 [facility] [address] [facility] [id number] [address] [place] [address] Nov, [facility] [address] [facility] [id number] [address] [place] [address] Nov, [facility] [address] [facility] [id number] [address] [place] [address] Nov, Schizoaffective disorder, de pressive type F25.1 [place] [address] [place] [id number] [address] [place] [address] 16 Nov, 2017 Well woman exam Z01.419 ; BM I 45.0-49.9, adult Z68.42 ; Screening breast examination Z12.31 and Dietary counseling and surveillance Z71.3 [place] [address] [place] [id number] [address] [place] [address] 10 Nov, 2017 Paranoid schizophrenia F20.0 [place] [address] [place] [id number] [address] [place] [address] 09 Nov, 2017 Gastroesophageal reflux dise ase, esophagitis presence not specified K21.9 [place] [address] [place] [id number] [address] [place] [address] 24 Oct, 2017 Paranoid schizophrenia F20.[id number] [place] [address] 18 Oct, 2017 Chronic pain syndrome G89.4 and Schizoaf fective disorder, depressive type F25.1 [place] [address] [place] [id number] [address] [place] [address] 18 Oct, 2017 Chronic pain syndrome G89.4 and Schizoaffective disorder, depressive type F25.1 [place] [address] [place] [id number] [address] [place] [address] 16 Oct, 2017 Type 2 diabetes mellitus wit hout complication, without long-term current use of insulin E11.9 [place] [address] [place] [id number] [address] [place] [address] 12 Oct, 2017 Essential hypertension I10 a nd DM neuro manif type II E11.49 [place] [address] [place] [id number] [address] [place] [address] 11 Oct, 2017 [place] [address] [facility] [id number] [address] [place] [address] 11 Oct, 2017 Schizoaffective disorder, de pressive type F25.1 and BMI 45.0-49.9, adult Z68.42 [facility] [address] [facility] [id number] [address] [place] [address] Oct, [facility] [address] [facility] [id number] [address] [place] [address] Oct, Paranoid schizophrenia F20.0 [facility] [address] [facility] [id number] [address] [place] [address] Oct, 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, without long-term current use of insulin E11.610 ; Essential hypertension I10 ; Hypothyroidism (acquired) E03.9 ; Chronic obstructive pulmonary disease, unspecified COPD type J44.9 and Diabetic polyneuropathy associated with type 2 diabetes mellitus E11.42 [facility] [address] [facility] [id number] [address] [place] [address] Sep, Paranoid schizophrenia F20.0 [facility] [address] [place] [id number] [address] [place] [address] Sep, Paranoid schizophrenia F20.0 and BMI 45.0-49.9, adult Z68.42 [facility] [address] [facility] [id number] [address] [place] [address] Sep, Schizoaffective disorder, de pressive type F25.1 [facility] [address] [facility] [id number] [address] [place] [address] Sep, [facility] [address] [facility] [id number] [address] [place] [address] Sep, Paranoid schizophrenia F20.0 [facility] [address] [facility] [id number] [address] [place] [address] Sep, [facility] [address] [facility] [id number] [address] [place] [address] Sep, Hypothyroidism (acquired) E0 3.9 [facility] [address] [place] [id number] [address] [place] [address] Sep, [facility] [address] [address] August, Schizoaffective disorder, de pressive type F25.1 [facility] [address] [address] August, [facility] [address] [address] August, [facility] [address] [address] August, [facility] [address] [address] August, Paranoid schizophrenia F20.0 [place] [address] [address] August, History of lupus Z87.39 and Chronic pain syndrome G89.4 [place] [address] [address] August, [facility] [address] [address] August, Seasonal allergic rhinitis, unspecified trigger J30.2 and BMI 45.0-49.9, adult Z68.42 [place] [address] [address] Jul, Schizoaffective disorder, de pressive type F25.1 [place] [address] [address] Jul, [place] [address] [address] Jul, Hypothyroidism (acquired) E0 3.9 [place] [address] [address] Jul, Chronic obstructive pulmonar y disease, unspecified COPD type J44.9 and Type 2 diabetes mellitus without complication, without long-term current use of insulin E11.9 [place] [address] [address] Jul, Paranoid schizophrenia F20.0 [facility] [address] [address] Jun, Hypothyroidism (acquired) E0 3.9 and Seasonal allergic rhinitis due to pollen J30.1 [facility] [address] [address] Jun, Shortness of breath at rest R06.02 ; COPD exacerbation J44.1 and BMI 45.0-49.9, adult Z68.42 [place] [address] [address] Jun, [place] [address] [address] Jun, Paranoid schizophrenia F20.0 ; Depression with anxiety F41.8 and BMI 45.0-49.9, adult Z68.42 [facility] [address] [address] Jun, Schizoaffective disorder, de pressive type F25.1 [facility] [address] [place] [id number] [address] [place] [id number] 13 Jun, 2017 Dental caries K02.9 [place] [address] [address] 12 Jun, 2017 Paranoid schizophrenia F20.0 [facility] [address] [address] May, Migraine without aura and wi thout status migrainosus, not intractable G43.009 ; DM neuro manif type II E11.49 and Type 2 diabetes mellitus without complication, without long-term current use of insulin E11.9 [facility] [address] [place] [id number] [address] [place] [address] 26 May, 2017 Migraine without aura and wi thout status migrainosus, not intractable G43.009 [facility] [address] [address] May, Depression with anxiety F41. 8 [facility] [address] [id number] May, [facility] [address] [address] May, [place] [address] [address] May, [place] [address] [address] May, Hypothyroidism (acquired) E0 3.9 [place] [address] [address] May, Paranoid schizophrenia F20.0 [place] [address] [address] May, Type 2 diabetes mellitus wit hout [...] Controlled substance agreement signed Z79.899 [place] [address] [address] May, Controlled substance agreeme nt signed Z79.899 [place] [address] [address] Apr, [facility] [address] [id number] Apr, Dental examination Z01.20 [facility] [facility] [address] [id number] [address] [place] [id number] Apr, Paranoid schizophrenia F20.0 [facility] [address] [id number] [address] [place] [address] Apr, Hypertension, unspecified ty pe I10 [facility] [address] [id number] [address] [place] [address] Apr, Paranoid schizophrenia F20.0 [facility] [address] [id number] [address] [place] [address] Apr, [facility] [address] [id number] [address] [place] [address] Apr, Tobacco abuse Z72.0 [facility] [address] [id number] [address] [place] [phone] Apr, [facility] [address] [id number] [address] [place] [address] Mar, [facility] [address] [id number] [address] [place] [address] Mar, Paranoid schizophrenia F20.0 and BMI 45.0-49.9, adult Z68.42 [facility] [address] [id number] [address] [place] [address] Mar, Schizoaffective disorder, de pressive type F25.1 [facility] [address] [id number] [address] [place] [phone] Mar, [facility] [address] [id number] [address] [place] [address] Mar, Hypothyroidism, unspecified type E03.9 [facility] [address] [id number] [address] [place] [address] Mar, Schizoaffective disorder, de pressive type F25.1 [facility] [address] [address] Feb, Gastroenteritis K52.9 and BM I 45.0-49.9, adult Z68.42 [place] [address] [address] Feb, [facility] [address] [address] Feb, [place] [address] [id number] Feb, [place] [address] [address] Feb, [place] [address] [address] Feb, Paranoid schizophrenia F20.0 [place] [address] [address] Feb, Gastroesophageal reflux dise ase without esophagitis K21.9 ; Other seasonal allergic rhinitis J30.2 ; Other allergic rhinitis J30.89 ; Tobacco abuse Z72.0 and BMI 40.0-44.9, adult Z68.41 [place] [address] [address] Feb, Onychomycosis B35.1 ; Callus of foot L84 and DM neuro manif type II E11.49 [place] [address] [address] Jan, Chronic allergic rhinitis J3 0.9 [place] [address] [address] Jan, [place] [address] [address] Jan, Schizoaffective disorder, de pressive type F25.1 [place] [address] [address] Jan, [facility] [address] [facility] [id number] [address] [place] [phone] 07 Jan, 2017 Sore throat J02.9 and Season al allergic rhinitis due to other allergic trigger J30.89 [facility] [address] [facility] [id number] [address] [place] [address] 04 Jan, 2017 [facility] [address] [place] [id number] [address] [place] [phone] Jan, [facility] [address] [place] [id number] [address] [place] [address] Jan, Chronic allergic rhinitis J3 0.9 [place] [address] [place] [id number] [place] [phone] 27 Dec, 2016 Paranoid schizophrenia F20.0 ; Primary insomnia F51.01 and Schizoaffective disorder, depressive type F25.1 [place] [address] [address] Dec, Chronic pain syndrome G89.4 ; Cervicalgia of idacnbiu-fxaojqr-ousse region M54.2 ; Menopausal syndrome (hot flashes) N95.1 and Encounter for immunization Z23 [facility] [address] [place] [id number] [address] [place] [phone] 14 Dec, 2016 [facility] [address] [place] [id number] [address] [place] [address] 13 Dec, 2016 [facility] [address] [place] [id number] [address] [place] [id number] 08 Dec, 2016 Paranoid schizophrenia F20.0 [facility] [address] [place] [id number] [address] [place] [id number] Dec, Schizoaffective disorder, de pressive type F25.1 [facility] [address] [facility] [id number] [address] [place] [address] Nov, Hypothyroidism, unspecified type E03.9 [facility] [address] [place] [id number] [address] [place] [address] Nov, Acute seasonal allergic rhin itis due to other allergen J30.89 [place] [address] [facility] [id number] [address] [place] [address] Nov, [place] [address] [facility] [id number] [address] [place] [address] Nov, Hypothyroidism, unspecified type E03.9 and Other elevated white blood cell (WBC) count D72.828 [place] [address] [facility] [id number] [address] [place] [address] Nov, Schizoaffective disorder, de pressive type F25.1 [place] [address] [facility] [id number] [address] [place] [address] Nov, Paranoid schizophrenia F20.0 [place] [address] [facility] [id number] [address] [place] [address] Nov, Type 2 diabetes mellitus wit hout complication, without long-term current use of insulin E11.9 ; Morbid obesity due to excess calories E66.01 and Chronic pain syndrome G89.4 [place] [address] [facility] [id number] [address] [place] [address] Oct, Paranoid schizophrenia F20.0 [place] [address] [id number] [address] [place] [address] Oct, [place] [address] [facility] [id number] [address] [place] [phone] Oct, Schizoaffective disorder, de pressive type F25.1 [place] [address] [id number] [address] [place] [address] Oct, Hypothyroidism, unspecified type E03.9 and Other elevated white blood cell (WBC) count D72.828 [place] [address] [facility] [id number] [address] [place] [address] Oct, Morbid obesity due to excess calories E66.01 ; Chronic obstructive pulmonary disease, unspecified COPD type J44.9 ; History of lupus Z87.39 ; Hypothyroidism, unspecified type E03.9 ; Gastroesophageal reflux disease without esophagitis K21.9 ; Primary insomnia F51.01 and Chronic pain syndrome G89.4 [facility] [address] [id number] [address] [place] [id number] 30 Sep, 2016 [facility] [address] [id number] [address] [place] [phone] Sep, [facility] [address] [id number] [address] [place] [address] Sep, [facility] [address] [id number] [address] [place] [address] Sep, Paranoid schizophrenia F20.0 [facility] [address] [id number] [address] [place] [address] Sep, [facility] [address] [id number] [address] [place] [address] Sep, Paranoid schizophrenia F20.0 [facility] [address] [id number] [address] [place] [address] Sep, [facility] [address] [facility] [id number] [address] [place] [phone] August, Paranoid schizophrenia F20.0 [facility] [address] [facility] [id number] [address] [place] [address] Jul, [facility] [address] [facility] [id number] [address] [place] [address] Jul, Type 2 diabetes mellitus wit hout complication, without long-term current use of insulin E11.9 ; Morbid obesity due to excess calories E66.01 ; Depression with anxiety F41.8 ; Hypothyroidism, unspecified type E03.9 ; Seasonal allergic rhinitis due to other allergic trigger J30.89 ; Pain, dental K08.89 and Gastroesophageal reflux disease without esophagitis K21.9 [facility] [address] [id number] [address] [place] [id number] 12 Jul, 2016 Dental examination Z01.20 [place] [address] [address] [place] [id number] [address] [place] [address] 07 Jul, 2016 Paranoid schizophrenia F20.0 [place] [address] [address] 13 Jun, 2016 Paranoid schizophrenia F20.0 and Depression with anxiety F41.8 [place] [address] [address] 10 Jun, 2016 Paranoid schizophrenia F20.0 and Depression with anxiety F41.8 [place] [address] [address] 09 Jun, 2016 [place] [address] [address] Jun, [facility] [place] [address] [address] Jun, Seasonal allergic rhinitis d ue to other allergic trigger J30.89 [facility] [place] [address] [address] May, Sore throat J02.9 ; Other vi ral agents as the cause of diseases classified elsewhere B97.89 and Acute upper respiratory infection, unspecified J06.9 [place] [address] [address] May, Paranoid schizophrenia F20.0 and Depression with anxiety F41.8 [place] [address] [address] Apr, Other seasonal allergic rhin itis J30.2 [place] [address] [address] Apr, Paranoid schizophrenia F20.0 and Depression with anxiety F41.8 [facility] [place] [address] [place] [id number] [place] [address] Apr, Bronchitis J40 and Sore thro at J02.9 [place] [id number] [place] [address] Apr, Type 2 diabetes mellitus wit hout complication, without long-term current use of insulin E11.9 [facility] [address] [place] [id number] [address] [place] [address] Apr, Bronchitis J40 [facility] [address] [address] Apr, [facility] [address] [address] Apr, [facility] [address] [address] Mar, Type 2 diabetes mellitus wit hout [...] Other seasonal allergic rhinitis J30.2 [place] [address] [address] Mar, Paranoid schizophrenia F20.0 and Depression with anxiety F41.8 [facility] [address] [address] Feb, [facility] [address] [address] Feb, [place] [address] [address] Feb, [place] [address] [address] Feb, [facility] [address] [address] 14 Nov, 2016 Type 2 diabetes mellitus wit hout complication, without long-term current use of insulin E11.9 ; ARIAS on CPAP G47.33 and Preoperative evaluation to rule out surgical contraindication Z01.818 [facility] [address] [id number] [address] [place] [address] 09 Feb, 2016 Paranoid schizophrenia F20.0 and Depression with anxiety F41.8 [facility] [address] [id number] [address] [place] [address] 18 Jan, 2016 [facility] [address] [id number] [address] [place] [phone] 18 Jan, 2016 Paranoid schizophrenia F20.0 and Depression with anxiety F41.8 [facility] [address] [id number] [address] [place] [address] 17 Jan, 2016 [facility] [address] [id number] [address] [place] [phone] 14 Jan, 2016 Muscle strain T14.8 [facility] [address] [id number] [address] [place] [address] 10 Jan, 2016 Paranoid schizophrenia F20.0 [facility] [address] [id number] [address] [place] [address] 07 Jan, 2016 [facility] [address] [id number] [address] [place] [address] Jan, Paranoid schizophrenia F20.0 and Depression with anxiety F41.8 [facility] [address] [id number] [address] [place] [phone] 05 Jan, 2016 [facility] [address] [id number] [address] [place] [address] Jan, [facility] [address] [id number] [address] [place] [address] Dec, [facility] [address] [id number] [address] [place] [address] Dec, Paranoid schizophrenia F20.0 [facility] [address] [id number] [address] [place] [address] 16 Dec, 2015 Paranoid schizophrenia F20.0 and Depression with anxiety F41.8 [facility] [address] [id number] [address] [place] [address] Nov, [facility] [address] [facility] [id number] [address] [place] [address] Nov, Paranoid schizophrenia F20.0 [facility] [address] [id number] [address] [place] [address] Nov, Paranoid schizophrenia F20.0 and Depression with anxiety F41.8 [facility] [address] [facility] [id number] [address] [place] [address] 05 Nov, 2015 Type 2 diabetes mellitus wit hout complication, without long-term current use of insulin E11.9 ; Paranoid schizophrenia F20.0 ; Chronic obstructive pulmonary disease, unspecified COPD type J44.9 ; Morbid obesity due to excess calories E66.01 and Parkinsonian tremor G20 [facility] [address] [facility] [id number] [address] [place] [address] Nov, [facility] [address] [facility] [id number] [address] [place] [address] Oct, Paranoid schizophrenia F20.0 [facility] [address] [facility] [id number] [address] [place] [address] Oct, Paranoid schizophrenia F20.0 [facility] [address] [facility] [id number] [address] [place] [address] Oct, Paranoid schizophrenia F20.0 and Depression with anxiety F41.8 [facility] [address] [id number] [address] [place] [address] Oct, [facility] [address] [facility] [id number] [address] [place] [address] Oct, Paranoid schizophrenia F20.0 and Depression with anxiety F41.8 [facility] [address] [facility] [id number] [address] [place] [address] Oct, Nasal sore J34.89 [facility] [address] [facility] [id number] [address] [place] [address] Oct, Type 2 diabetes mellitus wit hout complication, without long-term current use of insulin E11.9 ; Depression with anxiety F41.8 ; Hypothyroidism, unspecified type E03.9 and History of lupus Z87.39 [facility] [address] [place] [id number] [address] [place] [address] Oct, [facility] [address] [place] [id number] [address] [place] [address] Oct, Type 2 diabetes mellitus wit hout [...] edema R60.9 and History of lupus Z87.39 [place] [id number] [address] [place] [address] Feb, [place] [address] [place] [id number] [address] [place] [address] Jan, [place] [address] [place] [id number] [address] [place] [address] Jan, [facility] [address] [place] [id number] [address] [place] [address] Jan, [place] [address] [place] [id number] [address] [place] [address] Dec, [facility] [address] [place] [id number] [address] [place] [address] Nov, [place] [address] [place] [id number] [address] Nov, [facility] [address] [id number] [address] [place] [phone] Oct, [facility] [address] [id number] [address] [place] [address] Oct, [facility] [address] [id number] [address] [place] [address] Oct, [facility] [address] [id number] [address] [place] [address] Sep, Allergic rhinitis 477.9 [facility] [address] [id number] [address] [place] [address] Sep, Rhinitis, allergic 477.9 [facility] [address] [id number] [address] [place] [address] Sep, Rhinitis, allergic 477.9 [facility] [address] [id number] [address] [place] [address] Sep, [facility] [address] [id number] [address] [place] [address] August, [facility] [address] [id number] [address] [place] [phone] August, [facility] [address] [id number] [address] [place] [address] August, [facility] [address] [id number] [address] [place] [address] 28 Jul, 2014 [facility] [address] [id number] [address] [place] [address], [place] [address] 14 Jul, 2014 [facility] [address] [id number] [address] [place] [address] 13 Jul, 2014 [facility] [address] [id number] [address] [place] [phone] Jun, [facility] [address] [id number] [address] [place] [address], [place] [address] 16 Jun, 2014 [facility] [address] [id number] [address] [place] [address], [place] [address] 12 Jun, 2014 [facility] [address] [id number] [address] [place] [address], [place] [address] 12 Jun, 2014 [facility] [address] [id number] [address] [place] [address], [place] [address] Jun, [facility] [address] [id number] [address] [place] [address], [place] [address] Jun, [facility] [address] [id number] [address] [place] [address], [place] [address] Jun, [facility] [address] [id number] [address] [place] [address], [place] [address] Jun, [facility] [address] [id number] [address] [place] [address], [place] [address] May, [facility] [address] [id number] [address] [place] [address], [place] [address] May, [facility] [address] [id number] [address] [place] [address], [place] [address] May, [facility] [address] [id number] [address] [place] [address], [place] [id number] May, [facility] [address] [id number] [address] [place] [address], [place] [id number] Apr, [facility] [address] [id number] [address] [place] [address], [place] [id number] Mar, [facility] [place] [facility] [address] [id number] [address] [place] [address], [place] [address] Mar, [facility] [address] [id number] [address] [place] [address], [place] [address] Mar, [facility] [address] [id number] [address] [place] [address], [place] [address] Mar, [facility] [place] [facility] [address] [id number] [address] [place] [address], [place] [address] Mar, [facility] [place] [facility] [address] [id number] [address] [place] [address], [place] [address] Mar, [facility] [place] [facility] [address] [id number] [address] [place] [address], [place] [address] Mar, [facility] [place] [facility] [address] [id number] [address] [place] [address], [place] [address] Mar, [facility] [place] [facility] [address] [id number] [address] [place] [address], [place] [address] Mar, [facility] [place] [facility] [address] [id number] [address] [place] [address], [place] [id number] Feb, [facility] [place] [facility] [address] [id number] [address] [place] [address], [place] [address] Feb, [facility] [place] [facility] [address] [id number] [address] [place] [address], [place] [address] Feb, [facility] [place] [facility] [address] [id number] [address] [place] [address], [place] [id number] Feb, [facility] [place] [facility] [address] [id number] [address] [place] [address], [place] [id number] Feb, [facility] [place] [facility] [address] [id number] [address] [place] [address], [place] [address] Feb, [facility] [place] [facility] [address] [id number] [address] [place] [address], [place] [id number] Feb, [facility] [place] [facility] [address] [id number] [address] [place] [address], [place] [address] Feb, [facility] [place] [facility] [address] [id number] [address] [place] [address], [place] [address] Jan, [facility] [place] [facility] [address] [id number] [address] [place] [address], [place] [address] Jan, [facility] [place] [facility] [address] [id number] [address] [place] [address] [place] [address] 16 Jan, 2014 [facility] [place] [facility] [address] [id number] [address] [place] [address], [place] [address] 16 Jan, 2014 [facility] [place] [facility] [address] [id number] [address] [place] [address], [place] [address] 15 Jan, 2014 [facility] [place] [facility] [address] [id number] [address] [place] [address], [place] [address] 15 Jan, 2014 [facility] [place] [facility] [address] [id number] [address] [place] [address], [place] [address] 14 Jan, 2014 [facility] [place] [facility] [address] [id number] [address] [place] [address], [place] [address] 14 Jan, 2014 [facility] [place] [facility] [address] [id number] [address] [place] [address], [place] [address] 14 Jan, 2014 [facility] [place] [facility] [address] [id number] [address] [place] [address], [place] [id number] 14 Jan, 2014 [facility] [address] [id number] [address] [place] [address], [place] [id number] 18 Dec, 2013 [facility] [address] [id number] [address] [place] [address], [place] [id number] 18 Dec, 2013 [facility] [address] [id number] [address] [place] [address], [place] [id number] 10 Dec, 2013 [facility] [address] [id number] [address] [place] [address], [place] [id number] 10 Dec, 2013 [facility] [address] [id number] [address] [place] [address], [place] [id number] Nov, [facility] [address] [id number] [address] [place] [address], [place] [id number] Nov, [facility] [address] [id number] [address] [place] [address], [place] [id number] Nov, [facility] [address] [id number] [address] [place] [address], [place] [id number] 18 Nov, 2013 [facility] [address] [id number] [address] [place] [address], [place] [id number] Nov, [facility] [address] [id number] [address] [place] [address] Oct, [facility] [address] [id number] [address] [place] [address], [place] [id number] Oct, [facility] [address] [id number] [address] [place] [address], [place] [id number] Oct, [facility] [address] [id number] [address] [place] [address], [place] [id number] Oct, [facility] [address] [id number] [address] [place] [address], [place] [id number] Sep, [facility] [address] [id number] [address] [place] [address], [place] [address] Sep, [facility] [address] [id number] [address] [place] [address], [place] [id number] Sep, [facility] [address] [id number] [address] [place] [address], [place] [address] Sep, [facility] [address] [id number] [address] [place] [address], [place] [address] Sep, [facility] [address] [id number] [address] [place] [address], [place] [id number] Sep, [facility] [address] [id number] [address] [place] [address], [place] [id number] Sep, [facility] [address] [id number] [address] [place] [address], [place] [id number] Sep, [facility] [address] [address] [id number] [address] [place] [address], [place] [address] August, [facility] [place] [facility] [address] [id number] [address] [place] [address], [place] [address] August, [facility] [place] [facility] [address] [id number] [address] [place] [address], [place] [address] August, [facility] [address] [id number] [facility] [place] [address] August, [facility] [address] [id number] [address] [place] [address], [place] [address] August, [facility] [address] [id number] [address] [place] [address], [place] [address] August, [facility] [address] [id number] [address] [place] [address], [place] [address] August, [facility] [address] [id number] [address] [place] [address], [place] [address] Jul, [facility] [address] [id number] [address] [place] [address], [place] [address] Jul, [facility] [address] [id number] [address] [place] [address], [place] [address] Jul, [facility] [address] [id number] [address] [place] [address], [place] [address] Jul, [facility] [address] [id number] [address] [place] [address], [place] [address] Jul, [facility] [address] [id number] [address] [place] [address], [place] [address] Jul, [facility] [address] [id number] [address] [place] [address], [place] [address] Jul, [facility] [address] [id number] [address] [place] [address], [place] [address] Jul, [facility] [address] [id number] [address] [place] [address], [place] [address] Jul, [facility] [address] [id number] [address] [place] [address], [place] [address] Jul, [facility] [place] [address] [id number] [address] [place] [address], [place] [address] Jul, [facility] [address] [id number] [address] [place] [address] Jul, [facility] [address] [id number] [address] [place] [address], [place] [address] Jun, [facility] [place] [address] [id number] [address] [place] [address], [place] [address] Jun, [facility] [address] [id number] [address] [place] [address], [place] [address] Jun, [facility] [address] [id number] [address] [place] [address], [place] [address] Jun, [facility] [address] [id number] [address] [place] [address], [place] [address] Jun, [facility] [address] [id number] [address] [place] [address], [place] [address] May, [facility] [place] [address] [id number] [address] [place] [address], [place] [address] May, [facility] [address] [id number] [address] [place] [address], [place] [address] May, [facility] [address] [id number] [address] [place] [address], [place] [address] May, [facility] [address] [id number] [address] [place] [address], [place] [address] May, [facility] [place] [facility] [address] [id number] [address] [place] [address], [place] [address] May, [facility] [address] [id number] [address] [place] [address], [place] [address] May, [facility] [address] [id number] [address] [place] [address], [place] [address] May, [facility] [place] [facility] [address] [id number] [address] [place] [address], [place] [address] Mar, [facility] [address] [id number] [address] [place] [address], [place] [address] Mar, [facility] [address] [id number] [address] [place] [address], [place] [address] Mar, [facility] [address] [id number] [address] [place] [address], [place] [address] Mar, [facility] [address] [id number] [address] [place] [address], [place] [address] Mar, [facility] [address] [id number] [address] [place] [id number] Mar, [facility] [address] [id number] [address] [place] [address], [place] [address] Feb, [facility] [address] [id number] [address] [place] [id number] Feb, [facility] [address] [id number] [address] [place] [address], [place] [address] Jan, [facility] [address] [id number] [address] [place] [id number] Jan, [facility] [address] [id number] [address] [place] [id number] Jan, [facility] [address] [id number] [address] [place] [id number] Jan, [facility] [address] [id number] [address] [place] [id number] Jan, [facility] [address] [id number] [address] [place] [id number] Jan, [facility] [address] [id number] [address] [place] [id number] Jan, [facility] [address] [id number] [address] [place] [id number] Jan, [facility] [address] [id number] [address] [place] [id number] Jan, [facility] [address] [id number] [address] [place] [address], [place] [address] Jan, [facility] [address] [id number] [address] [place] [address], [place] [address] Dec, [facility] [address] [id number] [address] [place] [address], [place] [address] Nov, [facility] [address] [id number] [address] [place] [address], [place] [address] Nov, [facility] [address] [id number] [address] [place] [address], [place] [address] Nov, [facility] [address] [id number] [address] [place] [address], [place] [address] Oct, [facility] [address] [id number] [address] [place] [address], [place] [address] Oct, [facility] [address] [id number] [address] [place] [address], [place] [address] August, [facility] [address] [id number] [address] [place] [address], [place] [address] Apr, [facility] [address] [id number] [address] [place] [address], [place] [address] Apr, [facility] [address] [id number] [address] [place] [address], [place] [address] Feb, [facility] [address] [id number] [address] [place] [address], [place] [address] Feb, [facility] [address] [id number] [address] [place] [address], [place] [address] Dec, [facility] [address] [id number] [address] [place] [address], [place] [address] Dec, [facility] [address] [id number] [address] [place] [address], [place] [address] Oct, [facility] [address] [id number] [address] [place] [address], [place] [address] Oct, [facility] [address] [facility] [id number] [address] [place] [id number] Oct, [facility] [address] [facility] [id number] [address] [place] [id number] Jul, IMMUNIZATIONS No Known Immunizations SOCIAL HISTORY Never Assessed REASON FOR VISIT PLAN OF CARE VITAL SIGNS Height 57 in 2014-06-25 Weight 233 lbs 2014-06-25 Temperature 97.6 degrees Fahrenheit 2014-06-25 Heart Rate 70 bpm 2014-06-25 Respiratory Rate 20 2014-06-25 Blood pressure systolic 134 mmHg 2014-06-25 Blood pressure diastolic 80 mmHg 2014-06-25 MEDICATIONS Unknown Medications RESULTS No Results PROCEDURES Procedure Date Ordered Result Body Site POLYSOMNOGRAPHY W/CPAP June 25, 2014 INSTRUCTIONS MEDICATIONS ADMINISTERED No Known Medications [...] hospitalizations for psychosis/mental illness, last one in [facility] 4 years ago Hospitalization History broken ankle 08/2018
--- OUTSIDE RECORDS SUMMARY | 2019-07-07 04:20 | XMS REPORT ---
Author Author Griselda, Alayna Doctor Organization [facility] Address Unknown Phone Unavailable Care Team Providers Care Appraiser Land Name Role Phone Migration, Doctor Unavailable Unavailable PROBLEMS Type Condition ICD9-CM Code OQW09-CO Code Onset Dates Condition S tatus SNOMED Code Problem Depression with anxiety F41.8 Active 655944186 Problem Morbid obesity due to excess calories E66.01 Active 058691817 Problem Chronic obstructive pulmonary disease, unspecified COPD ty pe J44.9 Active 22763363 Problem Paranoid schizophrenia F20.0 Active 55176359 Problem Chronic pain syndrome G89.4 Active 994175821 Problem History of lupus Z87.39 Active 312 163708 Problem Type 2 diabetes mellitus wit hout complication, without long-term current use of insulin E11.9 Active 955258600 Problem Dyslipidemia E78.5 Active 1437202 07 Problem Migraine without aura and without status migrain osus, not intractable G43.009 Active 284194659 Problem Primary insomnia F51.01 Active 397 2004 Problem Schizoaffective disorder, depressive type F25.1 Active 61133751 Problem Menopausal syndrome (hot flashes) N95.1 Active 651917753 Problem DM neuro manif type II E11.49 Active 30702717 Problem Other seasonal allergic rhinitis J30.2 Active 705179628 Problem Other allergic rhinitis J30.89 Active 659889767 Problem Gastroesophageal reflux disease, esophagitis pre sence not specified K21.9 Active 401362304 Problem Tobacco abuse Z72.0 Active 112332 000 Problem Essential hypertension I10 Active 11878426 Problem Hypothyroidism (acquired) E03.9 Acti ve 013503471 Problem COPD exacerbation J44.1 Active 19 7566000 Problem Allergic rhinitis, unspecified seasonality, unspecifie d trigger J30.9 Active 66168724 Problem Gastroesophageal reflux disease without esophagitis K21.9 Active 159772267 Problem Constipation by delayed colonic transit K59.01 Active 45004535 Problem OAB (overactive bladder) N32.81 Activ e 966959567 Problem Seasonal allergic rhinitis due to other allergic trigger J30.89 Active 339911769 Problem Seasonal allergic rhinitis due to pollen J30.1 Active 56730676 Problem 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, without long-term current use of insulin E11.610 Active 519190237 Problem Diabetic polyneuropathy associated with type 2 d iabetes mellitus E11.42 Active 736092836 Problem Cigarette nicotine dependence without complication F17.210 Active 18223095 ALLERGIES Substance Reaction Event Type Date Status Penicillins Unknown Non Drug Allergy Jul, Active Sulfa(sulfonamide Antibiotics) Unknown Non Drug Allergy Jul Active ENCOUNTERS Encounter Location Date Diagnosis [facility] [address] [facility] [id number] [address] [place] [address] Dec, [facility] [address] [facility] [id number] [address] [place] [address] Sep, [facility] [address] [place] [id number] [address] [place] [address] Sep, [facility] [address] [place] [id number] [address] [place] [address] Sep, Schizoaffective disorder, de pressive type F25.1 [facility] [address] [facility] [id number] [address] [place] [address] 18 Sep, 2018 [facility] [address] [facility] [id number] [address] [place] [address] Sep, [facility] [address] [facility] [id number] [address] [place] [address] Sep, [facility] [address] [facility] [id number] [address] [place] [address] Sep, [facility] [address] [facility] [id number] [address] [place] [address] Sep, [facility] [address] [facility] [id number] [address] [place] [address] Sep, [facility] [address] [place] [id number] [address] [place] [address] Sep, [facility] [address] [facility] [id number] [address] [place] [address] Sep, [facility] [address] [facility] [id number] [address] [place] [address] Sep, [facility] [address] [facility] [id number] [address] [place] [address] August, Paranoid schizophrenia F20.0 [facility] [address] [facility] [id number] [address] [place] [address] August, [facility] [address] [facility] [id number] [address] [place] [address] August, [facility] [address] [facility] [id number] [address] [place] [address] August, [facility] [address] [facility] [id number] [address] [place] [address] August, Type 2 diabetes mellitus wit hout complication, without long-term current use of insulin E11.9 ; Closed fracture of right ankle, initial encounter S82.891A ; Constipation by delayed colonic transit K59.01 ; Osteoporosis with pathological fracture, initial encounter M80.00XA and Encounter for immunization Z23 [facility] [address] [facility] [id number] [address] [place] [address] August, [facility] [address] [facility] [id number] [address] [place] [address] August, [facility] [address] [facility] [id number] [address] [place] [address] August, Acquired deformity of muscul oskeletal system, unspecified M95.9 [facility] [address] [facility] [id number] [address] [place] [address] August, Paranoid schizophrenia F20.0 [facility] [address] [facility] [id number] [place] [address] August, [facility] [address] [facility] [id number] [address] [place] [address] Jul, [place] [id number] [place] [address] Jul, Diabetic polyneuropathy asso ciated with type 2 diabetes mellitus E11.42 ; Paranoid schizophrenia F20.0 ; Preoperative clearance Z01.818 and Morbid obesity E66.01 [facility] [address] [place] [address] Jul, Paranoid schizophrenia F20.0 [place] [address] [address] Jul, [place] [address] [address] Jul, [place] [address] [address] Jul, Cigarette nicotine dependenc e without complication F17.210 [place] [address] [address] Jul, Type 2 diabetes mellitus wit hout complication, without long-term current use of insulin E11.9 and Hypothyroidism (acquired) E03.9 [place] [address] [address] Jul, Encounter for Medicare annua l wellness exam Z00.00 ; Morbid obesity due to excess calories E66.01 ; Diabetic polyneuropathy associated with type 2 diabetes mellitus E11.42 ; Chronic obstructive pulmonary disease, unspecified COPD type J44.9 ; Schizoaffective disorder, depressive type F25.1 ; Hypothyroidism (acquired) E03.9 and Morbid obesity E66.01 [place] [address] [place] [address] Jun, Gastroesophageal reflux dise ase without esophagitis K21.9 [facility] [address] [place] [id number] [address] [place] [address] Jun, Paranoid schizophrenia F20.0 [place] [address] [place] [id number] [place] [address] Jun, Schizoaffective disorder, de pressive type F25.1 [facility] [address] [facility] [id number] [address] [place] [address] Jun, [facility] [address] [facility] [id number] [address] [place] [address] Jun, Schizoaffective disorder, de pressive type F25.1 [facility] [address] [facility] [id number] [address] [place] [address] Jun, Cigarette nicotine dependenc e without complication F17.210 [facility] [address] [facility] [id number] [address] [place] [address] Jun, Type 2 diabetes mellitus wit hout complication, without long-term current use of insulin E11.9 [place] [address] [place] [id number] [place] [address] Jun, [facility] [address] [facility] [id number] [address] [place] [address] Jun, [facility] [address] [facility] [id number] [address] [place] [address] Jun, [facility] [address] [place] [id number] [place] [address] Jun, [facility] [address] [place] [id number] [place] [address] Jun, [facility] [address] [place] [id number] [place] [address] Jun, Paranoid schizophrenia F20.0 ; Type 2 diabetes mellitus without complication, without long-term current use of insulin E11.9 ; Hypothyroidism (acquired) E03.9 and Morbid obesity E66.01 [facility] [address] [facility] [id number] [address] [place] [address] May, Paranoid schizophrenia F20.0 [facility] [address] [facility] [id number] [address] [place] [address] May, Hypothyroidism (acquired) E0 3.9 and Dyslipidemia E78.5 [facility] [address] [facility] [id number] [address] [place] [address] May, Cigarette nicotine dependenc e without complication F17.210 [facility] [address] [facility] [id number] [address] [place] [address] 18 May, 2018 [facility] [address] [place] [id number] [place] [address] 14 May, 2018 Type 2 diabetes mellitus wit hout complication, without long-term current use of insulin E11.9 ; Essential hypertension I10 ; Hypothyroidism (acquired) E03.9 and Dyslipidemia E78.5 [place] [address] [place] [id number] [place] [address] 13 May, 2018 [facility] [address] [address] May, Schizoaffective disorder, de pressive type F25.1 [facility] [address] [place] [id number] [address] [place] [address] 08 May, 2018 Paranoid schizophrenia F20.0 [facility] [address] [place] [id number] [place] [address] 07 May, 2018 [email or web address] [address] [place] [address] 07 May, 19 [facility] [address] [place] [id number] [place] [address] May, [facility] [address] [place] [id number] [address] [place] [address] May, Type 2 diabetes mellitus wit hout complication, without long-term current use of insulin E11.9 ; Essential hypertension I10 ; Hypothyroidism (acquired) E03.9 and Dyslipidemia E78.5 [facility] [address] [place] [id number] [place] [address] May, [facility] [address] [place] [address] 04 May, 2018 Acute nasopharyngitis J00 [facility] [address] [address] 04 May, 2018 Allergic rhinitis, unspecifi ed seasonality, unspecified trigger J30.9 [facility] [address] [place] [id number] [place] [address] 04 May, 2018 [facility] [address] [address] Apr, Schizoaffective disorder, de pressive type F25.1 [place] [address] [address] Apr, [facility] [address] [address] Apr, Cigarette nicotine dependenc e without complication F17.210 [facility] [address] [address] Apr, [facility] [address] [address] Apr, Cigarette nicotine dependenc e without complication F17.210 [facility] [address] [address] 10 Apr, 2018 [facility] [address] [address] Apr, Migraine without aura and wi thout status migrainosus, not intractable G43.009 [facility] [address] [place] [id number] [place] [address] Apr, Migraine without aura and wi thout status migrainosus, not intractable G43.009 [facility] [address] [place] [id number] [place] [address] Mar, Schizoaffective disorder, de pressive type F25.1 ; BMI 45.0-49.9, adult Z68.42 and BMI 40.0-44.9, adult Z68.41 [facility] [address] [facility] [id number] [address] [place] [address] Mar, Primary insomnia F51.01 [facility] [address] [id number] [address] [place] [address] Mar, [facility] [address] [facility] [id number] [address] [place] [address] Feb, Primary insomnia F51.01 [facility] [address] [id number] [address] [place] [address] Feb, [facility] [address] [facility] [id number] [address] [place] [address] Jan, Schizoaffective disorder, de pressive type F25.1 and BMI 45.0-49.9, adult Z68.42 [facility] [address] [place] [id number] [place] [address] Jan, [facility] [address] [facility] [id number] [address] [place] [address] Jan, 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, without long-term current use of insulin E11.610 ; Menopausal syndrome (hot flashes) N95.1 and BMI 40.0-44.9, adult Z68.41 [facility] [address] [facility] [id number] [address] [place] [address] Jan, Paranoid schizophrenia F20.0 [facility] [address] [id number] [address] [place] [address] Jan, [facility] [address] [facility] [id number] [address] [place] [address] Jan, Schizoaffective disorder, de pressive type F25.1 [facility] [address] [facility] [id number] [address] [place] [address] Jan, [facility] [address] [facility] [id number] [address] [place] [address] 02 Jan, 2018 Chronic obstructive pulmonar y disease, unspecified COPD type J44.9 ; BMI 45.0-49.9, adult Z68.42 ; Type 2 diabetes mellitus without complication, without long-term current use of insulin E11.9 ; Hypothyroidism (acquired) E03.9 ; Encounter for immunization Z23 ; Gastroesophageal reflux disease without esophagitis K21.9 ; Primary insomnia F51.01 and Acute nasopharyngitis J00 [facility] [address] [facility] [id number] [address] [place] [address] 27 Dec, 2017 [facility] [address] [facility] [id number] [address] [place] [address] 21 Dec, 2017 Schizoaffective disorder, de pressive type F25.1 and BMI 45.0-49.9, adult Z68.42 [facility] [address] [place] [id number] [address] [place] [address] Dec, [facility] [address] [facility] [id number] [address] [place] [address] 18 Dec, 2017 [facility] [address] [facility] [id number] [address] [place] [address] 18 Dec, 2017 Acute non-recurrent frontal sinusitis J01.10 [facility] [address] [facility] [id number] [address] [place] [address] 18 Dec, 2017 Acute non-recurrent frontal sinusitis J01.10 ; Weakness of left leg R29.898 ; At high risk for falls Z91.81 and BMI 45.0-49.9, adult Z68.42 [facility] [address] [facility] [id number] [address] [place] [address] 17 Dec, 2017 [facility] [address] [place] [id number] [address] [place] [address] 17 Dec, 2017 [facility] [address] [facility] [id number] [address] [place] [address] Dec, Schizoaffective disorder, de pressive type F25.1 [facility] [address] [place] [id number] [place] [address] Dec, Acute nasopharyngitis J00 [facility] [address] [place] [id number] [place] [address] 05 Dec, 2017 Schizoaffective disorder, de pressive type F25.1 [facility] [address] [place] [id number] [place] [address] Dec, [place] [address] [address] Nov, Schizoaffective disorder, de pressive type F25.1 and BMI 45.0-49.9, adult Z68.42 [place] [address] [place] [id number] [place] [address] Nov, [place] [address] [place] [id number] [address] [place] [address] Nov, [place] [address] [address] Nov, Schizoaffective disorder, de pressive type F25.1 [place] [address] [address] Nov, Well woman exam Z01.419 ; BM I 45.0-49.9, adult Z68.42 ; Screening breast examination Z12.31 and Dietary counseling and surveillance Z71.3 [place] [id number] [place] [address] Nov, Paranoid schizophrenia F20.0 [place] [address] [facility] [id number] [address] [place] [address] Nov, Gastroesophageal reflux dise ase, esophagitis presence not specified K21.9 [place] [address] [facility] [id number] [address] [place] [address] Oct, Paranoid schizophrenia F20.0 [facility] [id number] [place] [address] Oct, Chronic pain syndrome G89.4 and Schizoaf fective disorder, depressive type F25.1 [facility] [address] [facility] [id number] [address] [place] [address] Oct, Chronic pain syndrome G89.4 and Schizoaffective disorder, depressive type F25.1 [facility] [address] [facility] [id number] [address] [place] [address] 16 Oct, 2017 Type 2 diabetes mellitus wit hout complication, without long-term current use of insulin E11.9 [place] [id number] [facility] [id number] [address] [place] [address] Oct, Essential hypertension I10 a nd DM neuro manif type II E11.49 [facility] [address] [facility] [id number] [address] [place] [address] Oct, [place] [address] [place] [id number] [place] [address] Oct, Schizoaffective disorder, de pressive type F25.1 and BMI 45.0-49.9, adult Z68.42 [place] [address] [facility] [id number] [place] [address] Oct, [place] [address] [place] [id number] [place] [address] Oct, Paranoid schizophrenia F20.0 [place] [address] [place] [id number] [place] [address] Oct, 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, without long-term current use of insulin E11.610 ; Essential hypertension I10 ; Hypothyroidism (acquired) E03.9 ; Chronic obstructive pulmonary disease, unspecified COPD type J44.9 and Diabetic polyneuropathy associated with type 2 diabetes mellitus E11.42 [facility] [address] [facility] [id number] [address] [place] [address] Sep, Paranoid schizophrenia F20.0 [place] [address] [place] [id number] [place] [address] Sep, Paranoid schizophrenia F20.0 and BMI 45.0-49.9, adult Z68.42 [facility] [address] [id number] [address] [place] [address] Sep, Schizoaffective disorder, de pressive type F25.1 [facility] [address] [id number] [address] [place] [address] Sep, [facility] [address] [id number] [address] [place] [address] Sep, Paranoid schizophrenia F20.0 [facility] [address] [id number] [address] [place] [address] Sep, [facility] [address] [facility] [id number] [address] [place] [address] Sep, Hypothyroidism (acquired) E0 3.9 [facility] [address] [facility] [id number] [address] [place] [address] Sep, [facility] [address] [id number] [address] [place] [address] August, Schizoaffective disorder, de pressive type F25.1 [facility] [address] [facility] [id number] [address] [place] [address] August, [facility] [address] [facility] [id number] [address] [place] [address] August, [facility] [address] [facility] [id number] [address] [place] [address] August, [facility] [address] [facility] [id number] [address] [place] [address] August, Paranoid schizophrenia F20.0 [facility] [address] [facility] [id number] [address] [place] [id number] August, History of lupus Z87.39 and Chronic pain syndrome G89.4 [facility] [address] [id number] [address] [place] [id number] August, [facility] [address] [id number] August, Seasonal allergic rhinitis, unspecified trigger J30.2 and BMI 45.0-49.9, adult Z68.42 [place] [address] [id number] Jul, Schizoaffective disorder, de pressive type F25.1 [place] [address] [id number] Jul, [place] [address] [id number] Jul, Hypothyroidism (acquired) E0 3.9 [place] [address] [id number] Jul, Chronic obstructive pulmonar y disease, unspecified COPD type J44.9 and Type 2 diabetes mellitus without complication, without long-term current use of insulin E11.9 [place] [address] [id number] Jul, Paranoid schizophrenia F20.0 [place] [address] [phone] Jun, Hypothyroidism (acquired) E0 3.9 and Seasonal allergic rhinitis due to pollen J30.1 [facility] [address] [address] Jun, Shortness of breath at rest R06.02 ; COPD exacerbation J44.1 and BMI 45.0-49.9, adult Z68.42 [place] [address] [address] Jun, [place] [address] [address] Jun, Paranoid schizophrenia F20.0 ; Depression with anxiety F41.8 and BMI 45.0-49.9, adult Z68.42 [facility] [address] [facility] [id number] [address] [place] [address] Jun, Schizoaffective disorder, de pressive type F25.1 [facility] [address] [id number] [address] [place] [id number] Jun, Dental caries K02.9 [facility] [address] [facility] [id number] [address] [place] [address] Jun, Paranoid schizophrenia F20.0 [facility] [address] [facility] [id number] [address] [place] [address] May, Migraine without aura and wi thout status migrainosus, not intractable G43.009 ; DM neuro manif type II E11.49 and Type 2 diabetes mellitus without complication, without long-term current use of insulin E11.9 [facility] [address] [facility] [id number] [address] [place] [address] May, Migraine without aura and wi thout status migrainosus, not intractable G43.009 [facility] [address] [facility] [id number] [address] [place] [address] May, Depression with anxiety F41. 8 [facility] [address] [id number] [address] [place] [id number] May, [facility] [address] [facility] [id number] [address] [place] [phone] May, [facility] [address] [facility] [id number] [address] [place] [address] May, [facility] [address] [facility] [id number] [address] [place] [phone] May, Hypothyroidism (acquired) E0 3.9 [facility] [address] [facility] [id number] [address] [place] [address] May, Paranoid schizophrenia F20.0 [facility] [address] [facility] [id number] [address] [place] [address] 08 May, 2017 Type 2 diabetes mellitus [...] N32.81 and Controlled substance agreement signed Z79.899 [place] [address] [address] May, Controlled substance agreeme nt signed Z79.899 [place] [address] [address] Apr, [facility] [id number] [place] [id number] Apr, Dental examination Z01.20 [place] [address] [address] Apr, Paranoid schizophrenia F20.0 [place] [address] [address] Apr, Hypertension, unspecified ty pe I10 [place] [address] [address] Apr, Paranoid schizophrenia F20.0 [place] [address] [place] [id number] [address] [place] [address] Apr, [place] [address] [address] Apr, Tobacco abuse Z72.0 [place] [address] [address] Apr, [place] [address] [facility] [id number] [address] [place] [address] Mar, [facility] [address] [place] [id number] [address] [place] [address] Mar, Paranoid schizophrenia F20.0 and BMI 45.0-49.9, adult Z68.42 [facility] [address] [facility] [id number] [address] [place] [address] 15 Mar, 2017 Schizoaffective disorder, de pressive type F25.1 [facility] [address] [facility] [id number] [address] [place] [address] 14 Mar, 2017 [facility] [address] [place] [id number] [place] [phone] Mar, Schizoaffective disorder, de pressive type F25.1 [facility] [address] [place] [id number] [address] [place] [address] Mar, Hypothyroidism, unspecified type E03.9 [facility] [address] [facility] [id number] [address] [place] [address] Feb, Gastroenteritis K52.9 and BM I 45.0-49.9, adult Z68.42 [facility] [address] [facility] [id number] [address] [place] [address] Feb, [facility] [address] [place] [id number] [address] [place] [address] Feb, [facility] [address] [place] [id number] [address] [place] [phone] Feb, [facility] [address] [facility] [id number] [address] [place] [phone] 16 Feb, 2017 [facility] [address] [place] [id number] [address] [place] [address] 10 Feb, 2017 Paranoid schizophrenia F20.0 [facility] [address] [place] [id number] [address] [place] [address] Feb, Gastroesophageal reflux dise ase without esophagitis K21.9 ; Other seasonal allergic rhinitis J30.2 ; Other allergic rhinitis J30.89 ; Tobacco abuse Z72.0 and BMI 40.0-44.9, adult Z68.41 [place] [address] [place] [id number] [place] [address] Feb, Onychomycosis B35.1 ; Callus of foot L84 and DM neuro manif type II E11.49 [place] [address] [address] Jan, Chronic allergic rhinitis J3 0.9 [place] [address] [place] [id number] [place] [address] 16 Jan, 2017 [place] [address] [address] Jan, Schizoaffective disorder, de pressive type F25.1 [place] [address] [address] Jan, [facility] [address] [place] [id number] [place] [phone] 07 Jan, 2017 Sore throat J02.9 and Season al allergic rhinitis due to other allergic trigger J30.89 [place] [address] [place] [id number] [place] [address] 04 Jan, 2017 [place] [address] [address] Jan, [facility] [address] [place] [id number] [place] [address] Jan, Chronic allergic rhinitis J3 0.9 [place] [address] [place] [id number] [place] [address] 27 Dec, 2016 Paranoid schizophrenia F20.0 ; Primary insomnia F51.01 and Schizoaffective disorder, depressive type F25.1 [place] [address] [address] Dec, Chronic pain syndrome G89.4 ; Cervicalgia of uegcxwiv-xezkarz-evyvr region M54.2 ; Menopausal syndrome (hot flashes) N95.1 and Encounter for immunization Z23 [facility] [address] [facility] [id number] [address] [place] [address] Dec, [facility] [address] [place] [id number] [place] [address] Dec, [facility] [address] [place] [id number] [place] [address] Dec, Paranoid schizophrenia F20.0 [place] [address] [place] [id number] [place] [address] Dec, Schizoaffective disorder, de pressive type F25.1 [place] [address] [place] [id number] [place] [address] Nov, Hypothyroidism, unspecified type E03.9 [facility] [address] [place] [id number] [place] [address] Nov, Acute seasonal allergic rhin itis due to other allergen J30.89 [facility] [address] [place] [id number] [place] [address] Nov, [facility] [address] [place] [id number] [place] [address] Nov, Hypothyroidism, unspecified type E03.9 and Other elevated white blood cell (WBC) count D72.828 [place] [address] [place] [id number] [place] [address] Nov, Schizoaffective disorder, de pressive type F25.1 [facility] [address] [place] [id number] [place] [address] Nov, Paranoid schizophrenia F20.0 [facility] [address] [place] [id number] [place] [address] Nov, Type 2 diabetes mellitus wit hout complication, without long-term current use of insulin E11.9 ; Morbid obesity due to excess calories E66.01 and Chronic pain syndrome G89.4 [place] [address] [facility] [id number] [address] [place] [address] Oct, Paranoid schizophrenia F20.0 [place] [address] [facility] [id number] [address] [place] [address] Oct, [place] [address] [facility] [id number] [address] [place] [phone] Oct, Schizoaffective disorder, de pressive type F25.1 [place] [address] [facility] [id number] [address] [place] [address] Oct, Hypothyroidism, unspecified type E03.9 and Other elevated white blood cell (WBC) count D72.828 [place] [address] [place] [id number] [place] [address] Oct, Morbid obesity due to excess calories E66.01 ; Chronic obstructive pulmonary disease, unspecified COPD type J44.9 ; History of lupus Z87.39 ; Hypothyroidism, unspecified type E03.9 ; Gastroesophageal reflux disease without esophagitis K21.9 ; Primary insomnia F51.01 and Chronic pain syndrome G89.4 [place] [address] [facility] [id number] [address] [place] [address] Sep, [place] [address] [facility] [id number] [address] [place] [address] Sep, [place] [address] [facility] [id number] [address] [place] [address] Sep, [place] [address] [facility] [id number] [address] [place] [address] Sep, Paranoid schizophrenia F20.0 [place] [address] [facility] [id number] [address] [place] [address] Sep, [place] [address] [facility] [id number] [address] [place] [address] Sep, Paranoid schizophrenia F20.0 [facility] [address] [facility] [id number] [address] [place] [phone] Sep, [facility] [address] [facility] [id number] [address] [place] [address] August, Paranoid schizophrenia F20.0 [facility] [address] [facility] [id number] [address] [place] [address] Jul, [facility] [address] [facility] [id number] [address] [place] [address] Jul, Type 2 diabetes mellitus wit hout complication, without long-term current use of insulin E11.9 ; Morbid obesity due to excess calories E66.01 ; Depression with anxiety F41.8 ; Hypothyroidism, unspecified type E03.9 ; Seasonal allergic rhinitis due to other allergic trigger J30.89 ; Pain, dental K08.89 and Gastroesophageal reflux disease without esophagitis K21.9 [facility] [address] [facility] [id number] [address] [place] [address] [id number] Jul, Dental examination Z01.20 [facility] [address] [facility] [id number] [address] [place] [address] 07 Jul, 2016 Paranoid schizophrenia F20.0 [facility] [address] [facility] [id number] [address] [place] [address] 13 Jun, 2016 Paranoid schizophrenia F20.0 and Depression with anxiety F41.8 [facility] [address] [facility] [id number] [address] [place] [address] Jun, Paranoid schizophrenia F20.0 and Depression with anxiety F41.8 [facility] [address] [facility] [id number] [address] [place] [address] Jun, [facility] [address] [facility] [id number] [address] [place] [address] Jun, [facility] [address] [facility] [id number] [address] [place] [address] Jun, Seasonal allergic rhinitis d ue to other allergic trigger J30.89 [facility] [address] [facility] [id number] [address] [place] [address] 25 May, 2016 Sore throat J02.9 ; Other vi ral agents as the cause of diseases classified elsewhere B97.89 and Acute upper respiratory infection, unspecified J06.9 [facility] [address] [facility] [id number] [address] [place] [address] 08 May, 2016 Paranoid schizophrenia F20.0 and Depression with anxiety F41.8 [facility] [address] [facility] [id number] [address] [place] [address] Apr, Other seasonal allergic rhin itis J30.2 [place] [address] [facility] [id number] [address] [place] [address] 11 Apr, 2016 Paranoid schizophrenia F20.0 and Depression with anxiety F41.8 [facility] [address] [place] [id number] [place] [address] 07 Apr, 2016 Bronchitis J40 and Sore thro at J02.9 [place] [address] [facility] [id number] [address] [place] [address] 03 Apr, 2016 Type 2 diabetes mellitus wit hout complication, without long-term current use of insulin E11.9 [facility] [address] [facility] [id number] [address] [place] [address] 02 Apr, 2016 Bronchitis J40 [place] [address] [place] [id number] [place] [address] Apr, [place] [address] [facility] [id number] [address] [place] [address] Apr, [place] [address] [place] [id number] [place] [address] Mar, Type 2 diabetes mellitus wit hout complication, without long-term current use of insulin E11.9 ; Paranoid schizophrenia F20.0 ; Depression with anxiety F41.8 ; ARAIS on CPAP G47.33 ; Gastroesophageal reflux disease without esophagitis K21.9 ; Acquired hypothyroidism E03.9 ; Chronic obstructive pulmonary disease, unspecified COPD type J44.9 ; OAB (overactive bladder) N32.81 ; Chronic pain syndrome G89.4 ; Peripheral edema R60.9 and Other seasonal allergic rhinitis J30.2 [facility] [address] [facility] [id number] [address] [place] [phone] 09 Mar, 2016 Paranoid schizophrenia F20.0 and Depression with anxiety F41.8 [place] [address] [facility] [id number] [address] [place] [address] Feb, [facility] [address] [facility] [id number] [address] [place] [address] Feb, [place] [address] [facility] [id number] [place] [id number] Feb, [place] [address] [place] [id number] [address] [place] [address] Feb, [place] [address] [place] [id number] [place] [phone] Feb, Type 2 diabetes mellitus wit hout complication, without long-term current use of insulin E11.9 ; ARIAS on CPAP G47.33 and Preoperative evaluation to rule out surgical contraindication Z01.818 [place] [address] [facility] [id number] [address] [place] [address] Feb, Paranoid schizophrenia F20.0 and Depression with anxiety F41.8 [place] [address] [facility] [id number] [address] [place] [address] Jan, [place] [address] [facility] [id number] [address] [place] [address] Jan, Paranoid schizophrenia F20.0 and Depression with anxiety F41.8 [place] [address] [facility] [id number] [address] [place] [address] 17 Jan, 2016 [facility] [address] [facility] [id number] [address] [place] [address] Jan, Muscle strain T14.8 [place] [address] [id number] [address] [place] [address] Jan, Paranoid schizophrenia F20.0 [facility] [address] [id number] [address] [place] [address] Jan, [facility] [address] [id number] [address] [place] [address] Jan, Paranoid schizophrenia F20.0 and Depression with anxiety F41.8 [facility] [address] [id number] [address] [place] [address] Jan, [facility] [address] [id number] [address] [place] [address] Jan, [facility] [address] [id number] [address] [place] [address] 28 Dec, 2015 [facility] [address] [id number] [address] [place] [address] 23 Dec, 2015 Paranoid schizophrenia F20.0 [facility] [address] [id number] [address] [place] [id number] 16 Dec, 2015 Paranoid schizophrenia F20.0 and Depression with anxiety F41.8 [facility] [address] [id number] [address] [place] [address] Nov, [facility] [address] [id number] [address] [place] [address] Nov, Paranoid schizophrenia F20.0 [facility] [address] [id number] [address] [place] [address] Nov, Paranoid schizophrenia F20.0 and Depression with anxiety F41.8 [facility] [address] [id number] [address] [place] [id number] 05 Nov, 2016 Type 2 diabetes mellitus wit hout complication, without long-term current use of insulin E11.9 ; Paranoid schizophrenia F20.0 ; Chronic obstructive pulmonary disease, unspecified COPD type J44.9 ; Morbid obesity due to excess calories E66.01 and Parkinsonian tremor G20 [place] [address] [facility] [id number] [address] [place] [address] Nov, [place] [address] [facility] [id number] [address] [place] [address] Oct, Paranoid schizophrenia F20.0 [place] [address] [facility] [id number] [address] [place] [address] Oct, Paranoid schizophrenia F20.0 [place] [address] [facility] [id number] [address] [place] [address] Oct, Paranoid schizophrenia F20.0 and Depression with anxiety F41.8 [place] [address] [facility] [id number] [address] [place] [address] Oct, [place] [address] [facility] [id number] [address] [place] [address] Oct, Paranoid schizophrenia F20.0 and Depression with anxiety F41.8 [place] [address] [facility] [id number] [address] [place] [address] Oct, Nasal sore J34.89 [place] [address] [facility] [id number] [address] [place] [address] Oct, Type 2 diabetes mellitus wit hout complication, without long-term current use of insulin E11.9 ; Depression with anxiety F41.8 ; Hypothyroidism, unspecified type E03.9 and History of lupus Z87.39 [place] [address] [facility] [id number] [address] [place] [address] Oct, [place] [address] [facility] [id number] [address] [place] [address] Oct, Type 2 diabetes mellitus wit hout [...] edema R60.9 and History of lupus Z87.39 [facility] [address] [id number] [address] [place] [address] Feb, [facility] [address] [facility] [id number] [address] [place] [phone] Jan, [facility] [address] [id number] [address] [place] [address] Jan, [facility] [address] [facility] [id number] [address] [place] [phone] Jan, [facility] [address] [facility] [id number] [address] [place] [address] Dec, [facility] [address] [facility] [id number] [address] [place] [phone] Nov, [facility] [address] [facility] [id number] [address] [place] [address] Nov, [facility] [address] [facility] [id number] [address] [place] [id number] Oct, [facility] [address] [facility] [id number] [address] [place] [id number] Oct, [facility] [address] [facility] [id number] [address] [place] [id number] Oct, [facility] [address] [facility] [id number] [address] [place] [id number] Sep, Allergic rhinitis 477.9 [facility] [address] [place] [id number] [address] [place] [id number] Sep, Rhinitis, allergic 477.9 [facility] [address] [facility] [id number] [address] [place] [id number] Sep, Rhinitis, allergic 477.9 [facility] [address] [id number] [address] [place] [address], [place] [id number] Sep, [facility] [address] [id number] [address] [place] [address], [place] [id number] August, [facility] [address] [id number] [address] [place] [address], [place] [id number] August, [facility] [address] [id number] [address] [place] [address], [place] [id number] August, [facility] [address] [id number] [address] [place] [address], [place] [id number] Jul, [facility] [address] [id number] [address] [place] [address], [place] [id number] Jul, [facility] [address] [id number] [address] [place] [address], [place] [id number] Jul, [facility] [address] [id number] [address] [place] [address], [place] [id number] 16 Jun, 2014 [facility] [address] [id number] [address] [place] [address], [place] [address] 16 Jun, 2014 [facility] [address] [id number] [address] [place] [address], [place] [address] Jun, [facility] [address] [id number] [address] [place] [address], [place] [address] Jun, [facility] [address] [id number] [address] [place] [address], [place] [address] Jun, [facility] [address] [id number] [address] [place] [address], [place] [address] Jun, [facility] [address] [id number] [address] [place] [address], [place] [address] Jun, [facility] [address] [id number] [address] [place] [address], [place] [address] Jun, [facility] [address] [id number] [address] [place] [address], [place] [address] May, 2014 [facility] [address] [id number] [address] [place] [address], [place] [address] May, 2014 [facility] [address] [id number] [address] [place] [address], [place] [address] May, 2014 [facility] [address] [id number] [address] [place] [address], [place] [address] May, [facility] [address] [id number] [address] [place] [address], [place] [address] Apr, [facility] [address] [id number] [address] [place] [address], [place] [address] Mar, [facility] [address] [id number] [address] [place] [address], [place] [address] Mar, [facility] [address] [id number] [address] [place] [address], [place] [address] Mar, [facility] [address] [id number] [address] [place] [address], [place] [address] Mar, [facility] [address] [id number] [address] [place] [address], [place] [address] Mar, [facility] [address] [id number] [address] [place] [address], [place] [address] Mar, [facility] [address] [id number] [address] [place] [address], [place] [address] Mar, [facility] [address] [id number] [address] [place] [address], [place] [address] Mar, [facility] [address] [id number] [address] [place] [address], [place] [address] Mar, [facility] [address] [id number] [address] [place] [address], [place] [address] Feb, [facility] [address] [id number] [address] [place] [address], [place] [address] Feb, [facility] [address] [id number] [address] [place] [address], [place] [address] 17 Feb, 2014 [facility] [address] [id number] [address] [place] [address], [place] [address] 17 Feb, 2014 [facility] [address] [id number] [address] [place] [address], [place] [address] 14 Feb, 2014 [facility] [address] [id number] [address] [place] [address], [place] [address] 14 Feb, 2014 [facility] [address] [id number] [address] [place] [address], [place] [address] Feb, [facility] [address] [id number] [address] [place] [address], [place] [address] Feb, [facility] [address] [id number] [address] [place] [address], [place] [address] 23 Jan, 2014 [facility] [address] [id number] [address] [place] [address], [place] [address] 23 Jan, 2014 [facility] [address] [id number] [address] [place] [address], [place] [address] 16 Jan, 2014 [facility] [address] [id number] [address] [place] [address], [place] [address] 16 Jan, 2014 [facility] [address] [id number] [address] [place] [address], [place] [address] 15 Jan, 2014 [facility] [address] [id number] [address] [place] [address], [place] [address] 15 Jan, 2014 [facility] [address] [id number] [address] [place] [address], [place] [address] 14 Jan, 2014 [facility] [address] [id number] [address] [place] [address], [place] [address] 14 Jan, 2014 [facility] [address] [id number] [address] [place] [address], [place] [address] 14 Jan, 2014 [facility] [address] [id number] [address] [place] [address], [place] [address] 14 Jan, 2014 [facility] [address] [id number] [address] [place] [address], [place] [address] 18 Dec, 2013 [facility] [address] [id number] [address] [place] [address], [place] [address] 18 Dec, 2013 [facility] [address] [id number] [address] [place] [address], [place] [address] Dec, [facility] [address] [id number] [address] [place] [address], [place] [address] Dec, [facility] [address] [id number] [address] [place] [address], [place] [address] Nov, [facility] [address] [id number] [address] [place] [address], [place] [address] Nov, [facility] [address] [id number] [address] [place] [address], [place] [address] Nov, [facility] [address] [id number] [address] [place] [address], [place] [address] Nov, [facility] [address] [id number] [address] [place] [address], [place] [address] Nov, [facility] [address] [id number] [address] [place] [address], [place] [address] Oct, [facility] [address] [id number] [address] [place] [address], [place] [address] Oct, [facility] [address] [id number] [address] [place] [address], [place] [address] Oct, [facility] [address] [id number] [address] [place] [address], [place] [address] Oct, [facility] [address] [id number] [address] [place] [address], [place] [address] Sep, [facility] [address] [id number] [address] [place] [address], [place] [address] Sep, [facility] [address] [id number] [address] [place] [address], [place] [address] Sep, [facility] [address] [id number] [address] [place] [address], [place] [address] Sep, [facility] [address] [id number] [address] [place] [address], [place] [address] Sep, [facility] [address] [id number] [address] [place] [address], [place] [address] Sep, [facility] [address] [id number] [address] [place] [address], [place] [address] Sep, [facility] [address] [id number] [address] [place] [address], [place] [address] Sep, [facility] [address] [id number] [address] [place] [address], [place] [address] August, [facility] [address] [id number] [address] [place] [address], [place] [address] August, [facility] [address] [id number] [address] [place] [address], [place] [address] August, [facility] [address] [id number] [address] [place] [address], [place] [address] August, [facility] [address] [id number] [address] [place] [address], [place] [address] August, [facility] [address] [id number] [address] [place] [address], [place] [address] August, [facility] [address] [id number] [address] [place] [address], [place] [address] August, [facility] [address] [id number] [address] [place] [address], [place] [address] Jul, [facility] [address] [id number] [address] [place] [address], [place] [address] Jul, [facility] [address] [id number] [address] [place] [address], [place] [address] Jul, [facility] [address] [id number] [facility] [place] [address] Jul, [facility] [address] [id number] [address] [place] [address], [place] [address] Jul, [facility] [address] [id number] [facility] [place] [address] Jul, [facility] [address] [id number] [address] [place] [address], [place] [address] Jul, [facility] [address] [id number] [address] [place] [address], [place] [address] Jul, [facility] [address] [id number] [address] [place] [address], [place] [address] Jul, [facility] [address] [id number] [address] [place] [address], [place] [address] Jul, [facility] [address] [id number] [address] [place] [address], [place] [address] Jul, [facility] [address] [id number] [address] [place] [address], [place] [address] Jul, [facility] [address] [id number] [address] [place] [address], [place] [address] Jun, [facility] [address] [id number] [address] [place] [address], [place] [address] Jun, [facility] [address] [id number] [address] [place] [address], [place] [address] Jun, [facility] [address] [id number] [address] [place] [address], [place] [address] Jun, [facility] [address] [id number] [address] [place] [address], [place] [address] Jun, [facility] [address] [id number] [address] [place] [address], [place] [address] May, [facility] [address] [id number] [address] [place] [address], [place] [address] May, [facility] [address] [id number] [address] [place] [address], [place] [address] May, [facility] [address] [id number] [address] [place] [address], [place] [address] May, [facility] [address] [id number] [address] [place] [address], [place] [address] May, [facility] [address] [id number] [address] [place] [address], [place] [address] May, [facility] [address] [id number] [address] [place] [address], [place] [address] May, [facility] [address] [id number] [address] [place] [address], [place] [address] May, [facility] [address] [id number] [address] [place] [address], [place] [address] Mar, [facility] [address] [id number] [address] [place] [address], [place] [address] Mar, [facility] [address] [id number] [address] [place] [address], [place] [address] Mar, [facility] [address] [id number] [address] [place] [address], [place] [address] Mar, [facility] [address] [id number] [address] [place] [address], [place] [address] Mar, [facility] [address] [id number] [address] [place] [address], [place] [address] Mar, [facility] [address] [id number] [address] [place] [address], [place] [address] Feb, [facility] [address] [id number] [address] [place] [address], [place] [address] Feb, [facility] [address] [id number] [address] [place] [address], [place] [address] Jan, [facility] [address] [id number] [address] [place] [address], [place] [address] Jan, [facility] [address] [id number] [address] [place] [address], [place] [address] Jan, [facility] [address] [id number] [address] [place] [address], [place] [address] Jan, [facility] [address] [id number] [address] [place] [address], [place] [address] Jan, [facility] [address] [id number] [address] [place] [address], [place] [address] Jan, [facility] [address] [id number] [address] [place] [address], [place] [address] Jan, [facility] [address] [id number] [address] [place] [address], [place] [address] Jan, [facility] [address] [id number] [address] [place] [address], [place] [address] Jan, [facility] [address] [id number] [address] [place] [address], [place] [address] Jan, [facility] [address] [id number] [address] [place] [address], [place] [address] Dec, [facility] [address] [id number] [address] [place] [address], [place] [address] Nov, [facility] [address] [id number] [address] [place] [address], [place] [address] Nov, [facility] [address] [id number] [address] [place] [address], [place] [address] Nov, [facility] [address] [id number] [address] [place] [address], [place] [address] Oct, [facility] [address] [id number] [address] [place] [address], [place] [address] Oct, [facility] [address] [id number] [address] [place] [address], [place] [address] August, [facility] [address] [id number] [address] [place] [address] Apr, [facility] [address] [id number] [address] [place] [address] Apr, [facility] [address] [id number] [address] [place] [address] Feb, [facility] [address] [id number] [address] [place] [address] Feb, [facility] [address] [id number] [address] [place] [address] Dec, [facility] [address] [id number] [address] [place] [address] Dec, [facility] [address] [id number] [address] [place] [address] Oct, [facility] [address] [id number] [address] [place] [address] Oct, [facility] [address] [id number] [address] [place] [address] Oct, [facility] [address] [id number] [address] [place] [address] Jul, IMMUNIZATIONS No Known Immunizations SOCIAL HISTORY Never Assessed REASON FOR VISIT EMR-[facility] [place] PLAN OF CARE VITAL SIGNS MEDICATIONS Medication Instructions Dosage Frequency Start Date End Date Duration S tatus cyclobenzaprine 10 mg 1 tablet 2 times per day PRN r, 2014 Active Spironolactone 50 mg take 1 tablet (50 mg) by oral rou te once daily Jun, Active Geodon 80 mg 1 capsule by Oral route 2 times per day Jun, Active hydroxychloroquine 200 mg take 1 tablet by Oral route 2 times per day Jul, Active Premarin 0.625 mg/gram insert 0.5 gram by vaginal rout e twice weekly Jan, Active trazodone 150 mg 1 Daily by Oral route 1 time per day Take at HS for sleep Jun, Active Naprosyn 500 mg 1 tablet by Oral route 2 times per day 1 0 Dec, 2013 Active Restasis 0.05 % instill 1 drop into affected eye(s) by ophthalmic route 2 times per day Oct, Active metformin 1,000 mg take 1 tablet by Ora l route 2 times per day with morning and evening meals for diabetes Jun, Active Mupirocin 2 % 1 Application by Elías al route 2 times per day to each nare--disp 22 gram tube Mar, Active Triamcinolone Acetonide 0.1 % apply a sm all amount to the affected area by Dental route 2 times per day 5 gm tube (dental paste) Jun, Active ProAir HFA 90 mcg/actuation inhale 2 puf fs by inhalation route every 4 hours as needed Nov, Active Breo Ellipta 100-25 mcg/dose inhale 1 pu ff by inhalation route once daily at the same time each day Jun, Activ e sertraline 100 mg take 1 tablet (100 mg) by oral route once daily Oct, Active RESULTS No Results PROCEDURES No [...] illness, last one in [facility] 4 years ago Hospitalization History broken ankle 08/2018
--- OUTSIDE RECORDS SUMMARY | 2019-07-07 04:20 | XMS REPORT ---
Author Author Griselda, Alayna Doctor Organization [facility] Address Unknown Phone Unavailable Care Team Providers Care Apron Man Name Role Phone Migration, Doctor Unavailable Unavailable PROBLEMS Type Condition ICD9-CM Code LAI22-LR Code Onset Dates Condition S tatus SNOMED Code Problem History of lupus Z87.39 Active 312 257514 Problem OAB (overactive bladder) N32.81 Activ e 049368056 Problem Chronic pain syndrome G89.4 Active 833914599 Problem Type 2 diabetes mellitus wit hout complication, without long-term current use of insulin E11.9 Active 125221142 Problem Depression with anxiety F41.8 Active 835043152 Problem Paranoid schizophrenia F20.0 Active 79418848 Problem Essential hypertension I10 Active 12304594 Problem Dyslipidemia E78.5 Active 7020807 07 Problem Schizoaffective disorder, depressive type F25.1 Active 93513138 Problem Seasonal allergic rhinitis due to other allergic trigger J30.89 Active 472243584 Problem DM neuro manif type II E11.49 Active 55269587 Problem Primary insomnia F51.01 Active 397 2004 Problem Other allergic rhinitis J30.89 Active 916847467 Problem Menopausal syndrome (hot flashes) N95.1 Active 873883545 Problem Tobacco abuse Z72.0 Active 423011 000 Problem Other seasonal allergic rhinitis J30.2 Active 012262519 Problem Hypothyroidism (acquired) E03.9 Acti ve 165115385 Problem Gastroesophageal reflux disease, esophagitis pre sence not specified K21.9 Active 990320048 Problem Migraine without aura and without status migrain osus, not intractable G43.009 Active 767700503 Problem Cigarette nicotine dependence without complication F17.210 Active 44202713 Problem Morbid obesity due to excess calories E66.01 Active 041718111 Problem Allergic rhinitis, unspecified seasonality, unspecifie d trigger J30.9 Active 53605603 Problem Chronic obstructive pulmonary disease, unspecified COPD ty pe J44.9 Active 84368451 Problem Gastroesophageal reflux disease without esophagitis K21.9 Active 429993400 Problem COPD exacerbation J44.1 Active 19 4163494 Problem Seasonal allergic rhinitis due to pollen J30.1 Active 90988031 Problem Diabetic polyneuropathy associated with type 2 d iabetes mellitus E11.42 Active 588145800 Problem 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 [address] [facility] [id number] [address] [place] [phone] Sep, [facility] [address] [facility] [id number] [address] [place] [phone] August, [facility] [address] [facility] [id number] [address] [place] [phone] August, [facility] [address] [facility] [id number] [address] [place] [phone] August, [facility] [address] [place] [id number] [address] [place] [phone] August, Acquired deformity of muscul oskeletal system, unspecified M95.9 [facility] [address] [facility] [id number] [address] [place] [phone] August, Paranoid schizophrenia F20.0 [facility] [address] [id number] [place] [address] August, [facility] [address] [facility] [id number] [address] [place] [phone] Jul, [facility] [address] [facility] [id number] [address] [place] [address] Jul, Diabetic polyneuropathy asso ciated with type 2 diabetes mellitus E11.42 ; Paranoid schizophrenia F20.0 ; Preoperative clearance Z01.818 and Morbid obesity E66.01 [facility] [address] [facility] [id number] [address] [place] [phone] Jul, Paranoid schizophrenia F20.0 [facility] [address] [facility] [id number] [address] [place] [phone] Jul, [place] [address] [facility] [id number] [address] [place] [phone] Jul, [place] [address] [facility] [id number] [address] [place] [phone] Jul, Cigarette nicotine dependenc e without complication F17.210 [place] [address] [facility] [id number] [address] [place] [phone] Jul, Type 2 diabetes mellitus wit hout complication, without long-term current use of insulin E11.9 and Hypothyroidism (acquired) E03.9 [place] [address] [facility] [id number] [address] [place] [phone] Jul, Encounter for Medicare [facility] wellness exam Z00.00 ; Morbid obesity due to excess calories E66.01 ; Diabetic polyneuropathy associated with type 2 diabetes mellitus E11.42 ; Chronic obstructive pulmonary disease, unspecified COPD type J44.9 ; Schizoaffective disorder, depressive type F25.1 ; Hypothyroidism (acquired) E03.9 and Morbid obesity E66.01 [place] [address] [facility] [id number] [address] [place] [phone] Jun, Gastroesophageal reflux dise ase without esophagitis K21.9 [place] [address] [facility] [id number] [address] [place] [address] Jun, Paranoid schizophrenia F20.0 [place] [address] [facility] [id number] [address] [place] [address] Jun, Schizoaffective disorder, de pressive type F25.1 [place] [address] [facility] [id number] [address] [place] [id number] Jun, [place] [address] [facility] [id number] [address] [place] [address] Jun, Schizoaffective disorder, de pressive type F25.1 [place] [address] [facility] [id number] [address] [place] [address] Jun, Cigarette nicotine dependenc e without complication F17.210 [facility] [address] [facility] [id number] [address] [place] [phone] 18 Jun, 2018 Type 2 diabetes mellitus wit hout complication, without long-term current use of insulin E11.9 [facility] [address] [facility] [id number] [address] [place] [phone] 15 Jun, 2018 [facility] [address] [facility] [id number] [address] [place] [phone] Jun, [facility] [address] [facility] [id number] [address] [place] [phone] Jun, [facility] [address] [facility] [id number] [address] [place] [phone] Jun, [facility] [address] [facility] [id number] [address] [place] [phone] Jun, [facility] [address] [place] [id number] [place] [address] Jun, Paranoid schizophrenia F20.0 ; Type 2 diabetes mellitus without complication, without long-term current use of insulin E11.9 ; Hypothyroidism (acquired) E03.9 and Morbid obesity E66.01 [facility] [address] [facility] [id number] [address] [place] [phone] 28 May, 2018 Paranoid schizophrenia F20.0 [place] [address] [facility] [id number] [address] [place] [phone] May, Hypothyroidism (acquired) E0 3.[address] [facility] [address] [facility] [id number] [address] [place] [address] May, Cigarette nicotine dependenc e without complication F17.210 [facility] [address] [facility] [id number] [address] [place] [phone] 18 May, 2018 [facility] [address] [facility] [id number] [address] [place] [phone] 14 May, 2018 Type 2 diabetes mellitus wit hout complication, without long-term current use of insulin E11.9 ; Essential hypertension I10 ; Hypothyroidism (acquired) E03.[address] [facility] [address] [place] [id number] [address] [place] [address] May, [facility] [address] [place] [id number] [address] [place] [phone] May, Schizoaffective disorder, de pressive type F25.1 [facility] [address] [place] [id number] [address] [place] [phone] 08 May, [address] [facility] [address] [place] [id number] [address] [place] [phone] 07 May, 2018 [facility] [address] [place] [address] 07 May, 19 [facility] [address] [address] May, [facility] [address] [phone] May, Type 2 diabetes mellitus wit hout complication, without long-term current use of insulin E11.9 ; Essential hypertension I10 ; Hypothyroidism (acquired) E03.[address] [facility] [address] [place] [id number] [address] [place] [phone] May, [facility] [address] [place] [id number] [address] [place] [phone] May, Acute nasopharyngitis J00 [facility] [address] [place] [id number] [address] [place] [phone] May, Allergic rhinitis, unspecifi ed seasonality, unspecified trigger J30.9 [facility] [address] [place] [id number] [address] [place] [phone] May, [facility] [address] [place] [id number] [address] [place] [phone] Apr, Schizoaffective disorder, de pressive type F25.1 [facility] [address] [facility] [id number] [address] [place] [phone] Apr, [facility] [address] [facility] [id number] [address] [place] [address] Apr, Cigarette nicotine dependenc e without complication F17.210 [facility] [address] [facility] [id number] [address] [place] [phone] Apr, [facility] [address] [facility] [id number] [address] [place] [phone] Apr, Cigarette nicotine dependenc e without complication F17.210 [place] [address] [facility] [id number] [address] [place] [phone] Apr, [place] [address] [facility] [id number] [address] [place] [phone] Apr, Migraine without aura and wi thout status migrainosus, not intractable G43.009 [facility] [address] [facility] [id number] [address] [place] [address] Apr, Migraine without aura and wi thout status migrainosus, not intractable G43.009 [facility] [address] [facility] [id number] [address] [place] [phone] Mar, Schizoaffective disorder, de pressive type F25.1 ; BMI 45.0-49.9, adult Z68.42 and BMI 40.0-44.9, adult Z68.41 [place] [address] [facility] [id number] [address] [place] [phone] Mar, Primary insomnia F51.01 [place] [address] [facility] [id number] [address] [place] [phone] Mar, [place] [address] [facility] [id number] [address] [place] [phone] Feb, Primary insomnia F51.01 [facility] [address] [facility] [id number] [address] [place] [phone] Feb, [place] [address] [place] [id number] [address] [place] [phone] Jan, Schizoaffective disorder, de pressive type F25.1 and BMI 45.0-49.9, adult Z68.42 [place] [address] [place] [id number] [address] [place] [phone] Jan, [place] [address] [place] [id number] [place] [address] Jan, 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, without long-term current use of insulin E11.610 ; Menopausal syndrome (hot flashes) N95.1 and BMI 40.0-44.9, adult Z68.41 [place] [address] [place] [id number] [place] [address] Jan, Paranoid schizophrenia F20.0 [place] [address] [phone] Jan, [place] [address] [place] [id number] [place] [phone] Jan, Schizoaffective disorder, de pressive type F25.1 [place] [address] [place] [id number] [place] [phone] Jan, [place] [address] [place] [id number] [place] [address] Jan, Chronic obstructive pulmonar y disease, unspecified COPD type J44.9 ; BMI 45.0-49.9, adult Z68.42 ; Type 2 diabetes mellitus without complication, without long-term current use of insulin E11.9 ; Hypothyroidism (acquired) E03.9 ; Encounter for immunization Z23 ; Gastroesophageal reflux disease without esophagitis K21.9 ; Primary insomnia F51.01 and Acute nasopharyngitis J00 [place] [address] [place] [id number] [address] [place] [phone] Dec, [place] [address] [place] [id number] [address] [place] [phone] Dec, Schizoaffective disorder, de pressive type F25.1 and BMI 45.0-49.9, adult Z68.42 [facility] [address] [id number] [address] [place] [phone] Dec, [facility] [address] [facility] [id number] [address] [place] [phone] Dec, [facility] [address] [facility] [id number] [address] [place] [address] Dec, Acute non-recurrent frontal sinusitis J01.10 [facility] [address] [facility] [id number] [address] [place] [phone] Dec, Acute non-recurrent frontal sinusitis J01.10 ; Weakness of left leg R29.898 ; At high risk for falls Z91.81 and BMI 45.0-49.9, adult Z68.42 [facility] [address] [facility] [id number] [address] [place] [phone] Dec, [facility] [address] [facility] [id number] [address] [place] [phone] Dec, [facility] [address] [facility] [id number] [address] [place] [phone] Dec, Schizoaffective disorder, de pressive type F25.1 [facility] [address] [id number] [address] [place] [phone] Dec, Acute nasopharyngitis J00 [facility] [address] [id number] [address] [place] [phone] Dec, Schizoaffective disorder, de pressive type F25.1 [facility] [address] [id number] [address] [place] [phone] Dec, [facility] [address] [facility] [id number] [address] [place] [phone] Nov, Schizoaffective disorder, de pressive type F25.1 and BMI 45.0-49.9, adult Z68.42 [place] [address] [facility] [id number] [address] [place] [phone] Nov, [place] [address] [facility] [id number] [address] [place] [phone] Nov, [place] [address] [facility] [id number] [address] [place] [phone] Nov, Schizoaffective disorder, de pressive type F25.1 [place] [address] [facility] [id number] [address] [place] [address] Nov, Well woman exam Z01.419 ; BM I 45.0-49.9, adult Z68.42 ; Screening breast examination Z12.31 and Dietary counseling and surveillance Z71.3 [place] [address] [place] [id number] [address] [place] [phone] Nov, Paranoid schizophrenia F20.0 [place] [address] [place] [id number] [address] [place] [phone] Nov, Gastroesophageal reflux dise ase, esophagitis presence not specified K21.9 [place] [address] [place] [id number] [address] [place] [phone] Oct, Paranoid schizophrenia F20.[id number] [place] [phone] Oct, Chronic pain syndrome G89.4 and Schizoaf fective disorder, depressive type F25.1 [place] [address] [place] [id number] [address] [place] [phone] Oct, Chronic pain syndrome G89.4 and Schizoaffective disorder, depressive type F25.1 [place] [address] [place] [id number] [address] [place] [phone] Oct, Type 2 diabetes mellitus wit hout complication, without long-term current use of insulin E11.9 [place] [address] [place] [id number] [place] [phone] Oct, Essential hypertension I10 a nd DM neuro manif type II E11.49 [facility] [address] [place] [id number] [place] [phone] Oct, 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 [address] [place] [id number] [address] [place] [phone] Sep, Schizoaffective disorder, de pressive type F25.1 [facility] [address] [place] [id number] [place] [phone] Sep, [place] [address] [place] [id number] [place] [phone] Sep, Paranoid schizophrenia F20.0 [facility] [address] [facility] [id number] [address] [place] [phone] Sep, [facility] [address] [place] [id number] [place] [phone] Sep, Hypothyroidism (acquired) E0 3.9 [facility] [address] [place] [id number] [address] [place] [phone] Sep, [facility] [address] [place] [id number] [place] [address] August, Schizoaffective disorder, de pressive type F25.1 [facility] [address] [place] [id number] [place] [phone] August, [facility] [address] [place] [id number] [place] [address] August, [facility] [address] [place] [id number] [place] [address] August, [facility] [address] [place] [id number] [place] [address] August, Paranoid schizophrenia F20.0 [facility] [address] [place] [id number] [place] [phone] August, History of lupus Z87.39 and Chronic pain syndrome G89.4 [facility] [address] [place] [id number] [address] [place] [phone] August, [facility] [address] [place] [id number] [address] [place] [phone] August, Seasonal allergic rhinitis, unspecified trigger J30.2 and BMI 45.0-49.9, adult Z68.42 [facility] [address] [place] [id number] [address] [place] [phone] Jul, Schizoaffective disorder, de pressive type F25.1 [facility] [address] [place] [id number] [address] [place] [phone] Jul, [facility] [address] [address] Jul, Hypothyroidism (acquired) E0 3.9 [facility] [address] [phone] 11 Jul, 2017 Chronic obstructive pulmonar y disease, unspecified COPD type J44.9 and Type 2 diabetes mellitus without complication, without long-term current use of insulin E11.9 [facility] [address] [phone] 10 Jul, 2017 Paranoid schizophrenia F20.0 [place] [address] [address] Jun, Hypothyroidism (acquired) E0 3.9 and Seasonal allergic rhinitis due to pollen J30.1 [facility] [address] [address] Jun, Shortness of breath at rest R06.02 ; COPD exacerbation J44.1 and BMI 45.0-49.9, adult Z68.42 [place] [address] [address] Jun, [facility] [address] [address] Jun, Paranoid schizophrenia F20.0 ; Depression with anxiety F41.8 and BMI 45.0-49.9, adult Z68.42 [facility] [address] [address] Jun, Schizoaffective disorder, de pressive type F25.1 [facility] [address] [place] [id number] [address] [place] [id number] Jun, Dental caries K02.9 [facility] [address] [place] [id number] [address] [place] [phone] Jun, Paranoid schizophrenia F20.0 [facility] [address] [id number] May, Migraine without aura and wi thout status migrainosus, not intractable G43.009 ; DM neuro manif type II E11.49 and Type 2 diabetes mellitus without complication, without long-term current use of insulin E11.9 [facility] [address] [facility] [id number] [address] [place] [phone] May, Migraine without aura and wi thout status migrainosus, not intractable G43.009 [facility] [address] [facility] [id number] [address] [place] [id number] May, Depression with anxiety F41. 8 [facility] [address] [facility] [id number] [address] [place] [id number] May, [facility] [address] [place] [id number] [address] [place] [id number] May, [facility] [address] [id number] May, [facility] [address] [place] [id number] [address] [place] [phone] May, Hypothyroidism (acquired) E0 3.9 [facility] [address] [place] [id number] [address] [place] [id number] May, Paranoid schizophrenia F20.0 [facility] [address] [place] [id number] [address] [place] [phone] May, Type 2 diabetes mellitus wit hout [...] and Controlled substance agreement signed Z79.899 [facility] [address] [facility] [id number] [address] [place] [phone] May, Controlled substance agreeme nt signed Z79.899 [facility] [address] [facility] [id number] [address] [place] [id number] Apr, [facility] [address] [id number] [address] [place] [id number] Apr, Dental examination Z01.20 [facility] [address] [facility] [id number] [address] [place] [id number] Apr, Paranoid schizophrenia F20.0 [facility] [address] [facility] [id number] [address] [place] [id number] Apr, Hypertension, unspecified ty pe I10 [facility] [address] [facility] [id number] [address] [place] [id number] Apr, Paranoid schizophrenia F20.0 [facility] [address] [facility] [id number] [address] [place] [phone] Apr, [facility] [address] [facility] [id number] [address] [place] [phone] Apr, Tobacco abuse Z72.0 [facility] [address] [facility] [id number] [address] [place] [id number] Apr, [facility] [address] [facility] [id number] [address] [place] [id number] Mar, [facility] [address] [facility] [id number] [address] [place] [id number] Mar, Paranoid schizophrenia F20.0 and BMI 45.0-49.9, adult Z68.42 [facility] [address] [facility] [id number] [address] [place] [phone] Mar, Schizoaffective disorder, de pressive type F25.1 [facility] [address] [address] 14 Mar, 2017 [facility] [address] [address] Mar, Hypothyroidism, unspecified type E03.9 [facility] [address] [address] Mar, Schizoaffective disorder, de pressive type F25.1 [facility] [address] [address] Feb, Gastroenteritis K52.9 and BM I 45.0-49.9, adult Z68.42 [place] [address] [address] Feb, [place] [address] [address] Feb, [place] [address] [address] Feb, [place] [address] [address] Feb, [place] [address] [address] Feb, Paranoid schizophrenia F20.0 [place] [address] [address] 06 Feb, 2017 Gastroesophageal reflux dise ase without esophagitis K21.9 ; Other seasonal allergic rhinitis J30.2 ; Other allergic rhinitis J30.89 ; Tobacco abuse Z72.0 and BMI 40.0-44.9, adult Z68.41 [place] [address] [address] 03 Feb, 2017 Onychomycosis B35.1 ; Callus of foot L84 and DM neuro manif type II E11.49 [place] [address] [address] Jan, Chronic allergic rhinitis J3 0.9 [facility] [address] [facility] [id number] [address] [place] [id number] 16 Jan, 2017 [facility] [address] [address] Jan, Schizoaffective disorder, de pressive type F25.1 [facility] [address] [address] 10 Jan, 2017 [facility] [address] [place] [id number] [place] [id number] 07 Jan, 2017 Sore throat J02.9 and Season al allergic rhinitis due to other allergic trigger J30.89 [facility] [address] [address] Jan, [facility] [address] [address] Jan, [facility] [address] [address] Jan, Chronic allergic rhinitis J3 0.9 [facility] [address] [address] 27 Dec, 2016 Paranoid schizophrenia F20.0 ; Primary insomnia F51.01 and Schizoaffective disorder, depressive type F25.1 [facility] [address] [address] 21 Dec, 2016 Chronic pain syndrome G89.4 ; Cervicalgia of mjjwgczb-yzlvams-zvwjb region M54.2 ; Menopausal syndrome (hot flashes) N95.1 and Encounter for immunization Z23 [facility] [address] [address] [address], 2016 [facility] [address] [place] [id number] [place] [address] 13 Dec, 2016 [facility] [address] [address] Dec, Paranoid schizophrenia F20.0 [facility] [address] [facility] [id number] [address] [place] [id number] Dec, Schizoaffective disorder, de pressive type F25.1 [facility] [address] [facility] [id number] [address] [place] [address] Nov, Hypothyroidism, unspecified type E03.9 [facility] [address] [facility] [id number] [address] [place] [phone] Nov, Acute seasonal allergic rhin itis due to other allergen J30.89 [facility] [address] [facility] [id number] [address] [place] [phone] Nov, [facility] [address] [facility] [id number] [address] [place] [address] Nov, Hypothyroidism, unspecified type E03.9 and Other elevated white blood cell (WBC) count D72.828 [place] [address] [address] [facility] [id number] [address] [place] [id number] Nov, Schizoaffective disorder, de pressive type F25.1 [facility] [address] [facility] [id number] [address] [place] [id number] Nov, Paranoid schizophrenia F20.0 [facility] [address] [facility] [id number] [address] [place] [address] Nov, Type 2 diabetes mellitus wit hout complication, without long-term current use of insulin E11.9 ; Morbid obesity due to excess calories E66.01 and Chronic pain syndrome G89.4 [facility] [address] [facility] [id number] [address] [place] [address] Oct, Paranoid schizophrenia F20.0 [facility] [address] [facility] [id number] [address] [place] [phone] Oct, [facility] [address] [facility] [id number] [address] [place] [id number] Oct, Schizoaffective disorder, de pressive type F25.1 [facility] [address] [facility] [id number] [address] [place] [id number] Oct, Hypothyroidism, unspecified type E03.9 and Other elevated white blood cell (WBC) count D72.828 [facility] [address] [facility] [id number] [address] [place] [address] Oct, Morbid obesity due to excess calories E66.01 ; Chronic obstructive pulmonary disease, unspecified COPD type J44.9 ; History of lupus Z87.39 ; Hypothyroidism, unspecified type E03.9 ; Gastroesophageal reflux disease without esophagitis K21.9 ; Primary insomnia F51.01 and Chronic pain syndrome G89.4 [facility] [address] [id number] [address] [place] [phone] Sep, [facility] [address] [facility] [id number] [address] [place] [phone] Sep, [facility] [address] [facility] [id number] [address] [place] [phone] Sep, [facility] [address] [facility] [id number] [address] [place] [id number] Sep, Paranoid schizophrenia F20.0 [facility] [address] [facility] [id number] [address] [place] [phone] Sep, [facility] [address] [facility] [id number] [address] [place] [id number] Sep, Paranoid schizophrenia F20.0 [facility] [address] [facility] [id number] [address] [place] [phone] Sep, [facility] [address] [facility] [id number] [address] [place] [address] August, Paranoid schizophrenia F20.0 [facility] [address] [facility] [id number] [address] [place] [address] Jul, [facility] [address] [facility] [id number] [address] [place] [id number] 18 Apr, 2017 Type 2 diabetes mellitus wit hout complication, without long-term current use of insulin E11.9 ; Morbid obesity due to excess calories E66.01 ; Depression with anxiety F41.8 ; Hypothyroidism, unspecified type E03.9 ; Seasonal allergic rhinitis due to other allergic trigger J30.89 ; Pain, dental K08.89 and Gastroesophageal reflux disease without esophagitis K21.9 [facility] [address] [facility] [id number] [address] [place] [id number] 12 Jul, 2016 Dental examination Z01.20 [place] [address] [address] 07 Jul, 2016 Paranoid schizophrenia F20.0 [place] [address] [address] 13 Jun, 2016 Paranoid schizophrenia F20.0 and Depression with anxiety F41.8 [place] [address] [address] 10 Jun, 2016 Paranoid schizophrenia F20.0 and Depression with anxiety F41.8 [place] [address] [address] 09 Jun, 2016 [place] [address] [address] Jun, [facility] [place] [address] [address] Jun, Seasonal allergic rhinitis d ue to other allergic trigger J30.89 [facility] [address] [address] May, Sore throat J02.9 ; Other vi ral agents as the cause of diseases classified elsewhere B97.89 and Acute upper respiratory infection, unspecified J06.9 [place] [address] [place] [id number] [place] [address] 08 May, 2016 Paranoid schizophrenia F20.0 and Depression with anxiety F41.8 [place] [address] [address] Apr, Other seasonal allergic rhin itis J30.2 [place] [address] [address] Apr, Paranoid schizophrenia F20.0 and Depression with anxiety F41.8 [facility] [address] [address] Apr, Bronchitis J40 and Sore thro at J02.9 [place] [address] [address] Apr, Type 2 diabetes mellitus wit hout complication, without long-term current use of insulin E11.9 [facility] [place] [address] [address] Apr, Bronchitis J40 [place] [address] [address] Apr, [place] [address] [address] Apr, [place] [address] [address] Mar, Type 2 diabetes mellitus wit hout [...] R60.9 and Other seasonal allergic rhinitis J30.2 [place] [address] [address] Mar, Paranoid schizophrenia F20.0 and Depression with anxiety F41.8 [place] [address] [address] Feb, [place] [address] [address] [place] [id number] [place] [id number] Feb, [facility] [address] [id number] [address] [place] [phone] Feb, [facility] [address] [id number] [address] [place] [phone] Feb, [facility] [address] [id number] [address] [place] [phone] Feb, Type 2 diabetes mellitus wit hout complication, without long-term current use of insulin E11.9 ; ARIAS on CPAP G47.33 and Preoperative evaluation to rule out surgical contraindication Z01.818 [facility] [address] [id number] [address] [place] [id number] 09 Feb, 2016 Paranoid schizophrenia F20.0 and Depression with anxiety F41.8 [place] [address] [id number] [address] [place] [address] Jan, [facility] [address] [id number] [address] [place] [phone] Jan, Paranoid schizophrenia F20.0 and Depression with anxiety F41.8 [facility] [address] [id number] [address] [place] [id number] 17 Jan, 2016 [facility] [address] [id number] [address] [place] [id number] Jan, Muscle strain T14.8 [facility] [address] [id number] [address] [place] [id number] Jan, Paranoid schizophrenia F20.0 [facility] [address] [id number] [address] [place] [phone] Jan, [facility] [address] [facility] [id number] [address] [place] [id number] Jan, Paranoid schizophrenia F20.0 and Depression with anxiety F41.8 [facility] [address] [facility] [id number] [address] [place] [phone] Jan, [facility] [address] [id number] [address] [place] [phone] Jan, [facility] [address] [id number] [address] [place] [id number] [address], 2015 [facility] [address] [facility] [id number] [address] [place] [phone] Dec, Paranoid schizophrenia F20.0 [facility] [address] [id number] [address] [place] [id number] 16 Dec, 2015 Paranoid schizophrenia F20.0 and Depression with anxiety F41.8 [facility] [address] [facility] [id number] [address] [place] [phone] Nov, [facility] [address] [facility] [id number] [address] [place] [phone] Nov, Paranoid schizophrenia F20.0 [facility] [address] [facility] [id number] [address] [place] [id number] Nov, Paranoid schizophrenia F20.0 and Depression with anxiety F41.8 [facility] [address] [facility] [id number] [address] [place] [phone] Nov, Type 2 diabetes mellitus wit hout complication, without long-term current use of insulin E11.9 ; Paranoid schizophrenia F20.0 ; Chronic obstructive pulmonary disease, unspecified COPD type J44.9 ; Morbid obesity due to excess calories E66.01 [address] Parkinsonian tremor G20 [facility] [address] [id number] [address] [place] [phone] Nov, [facility] [address] [id number] [address] [place] [id number] Oct, Paranoid schizophrenia F20.0 [facility] [address] [facility] [id number] [address] [place] [phone] Oct, Paranoid schizophrenia F20.0 [facility] [address] [facility] [id number] [address] [place] [id number] Oct, Paranoid schizophrenia F20.0 and Depression with anxiety F41.8 [place] [address] [address] Oct, [place] [address] [place] [id number] [place] [phone] Oct, Paranoid schizophrenia F20.0 and Depression with anxiety F41.8 [place] [address] [address] Oct, Nasal sore J34.89 [place] [address] [address] Oct, Type 2 diabetes mellitus wit hout complication, without long-term current use of insulin E11.9 ; Depression with anxiety F41.8 ; Hypothyroidism, unspecified type E03.9 and History of lupus Z87.39 [place] [address] [address] Oct, [place] [address] [address] Oct, Type 2 diabetes mellitus wit hout [...] edema R60.9 and History of lupus Z87.39 [place] [address] [address] Feb, [place] [address] [address] Jan, [place] [address] [address] Jan, [facility] [address] [id number] [address] [place] [phone] Jan, [facility] [address] [id number] [address] [place] [id number] Dec, [facility] [address] [id number] [address] [place] [id number] Nov, [facility] [address] [id number] [address] [place] [phone] Nov, [facility] [address] [id number] [address] [place] [phone] Oct, [facility] [address] [id number] [address] [place] [phone] Oct, [facility] [address] [id number] [address] [place] [phone] Oct, [facility] [address] [id number] [address] [place] [id number] Sep, Allergic rhinitis 477.9 [facility] [address] [id number] [address] [place] [id number] Sep, Rhinitis, allergic 477.9 [facility] [address] [id number] [address] [place] [id number] Sep, Rhinitis, allergic 477.9 [facility] [address] [id number] [address] [place] [phone] Sep, [facility] [address] [id number] [address] [place] [phone] August, [facility] [address] [id number] [address] [place] [phone] August, [facility] [address] [id number] [address] [place] [phone] August, [facility] [address] [id number] [address] [place] [phone] 28 Jul, 2014 [facility] [address] [id number] [address] [place] [address], [place] [address] 14 Jul, 2014 [facility] [address] [id number] [address] [place] [address], [place] [address] 13 Jul, 2014 [facility] [address] [id number] [address] [place] [address], [place] [address] 16 Jun, 2014 [facility] [address] [id number] [address] [place] [address], [place] [address] 16 Jun, 2014 [facility] [address] [id number] [address] [place] [address], [place] [address] Jun, [facility] [address] [id number] [address] [place] [address], [place] [address] Jun, [facility] [address] [id number] [address] [place] [address], [place] [address] Jun, [facility] [address] [id number] [address] [place] [address], [place] [address] Jun, [facility] [address] [id number] [address] [place] [address], [place] [address] Jun, [facility] [address] [id number] [address] [place] [address], [place] [address] Jun, [facility] [address] [id number] [address] [place] [address], [place] [address] May, [facility] [address] [id number] [address] [place] [address], [place] [address] May, [facility] [address] [id number] [address] [place] [address], [place] [address] May, [facility] [address] [id number] [address] [place] [address], [place] [address] May, [facility] [address] [id number] [address] [place] [address], [place] [address] Apr, [facility] [address] [id number] [address] [place] [address], [place] [address] Mar, [facility] [address] [id number] [address] [place] [address], [place] [address] Mar, [facility] [address] [id number] [address] [place] [address], [place] [address] Mar, [facility] [address] [id number] [address] [place] [address], [place] [address] Mar, [facility] [address] [id number] [address] [place] [address], [place] [address] Mar, [facility] [address] [id number] [address] [place] [address], [place] [address] Mar, [facility] [address] [id number] [address] [place] [address], [place] [address] Mar, [facility] [address] [id number] [address] [place] [address], [place] [address] Mar, [facility] [address] [id number] [address] [place] [address], [place] [address] Mar, [facility] [address] [id number] [address] [place] [address], [place] [address] Feb, [facility] [address] [id number] [address] [place] [address], [place] [address] Feb, [facility] [address] [id number] [address] [place] [address], [place] [address] Feb, [facility] [address] [id number] [address] [place] [address], [place] [address] 17 Feb, 2014 [facility] [address] [id number] [address] [place] [address], [place] [address] Feb, [facility] [address] [id number] [address] [place] [address], [place] [address] 14 Feb, 2014 [facility] [address] [id number] [address] [place] [address], [place] [address] Feb, [facility] [address] [id number] [address] [place] [address], [place] [address] 12 Feb, 2014 [facility] [address] [id number] [address] [place] [address], [place] [address] 23 Jan, 2014 [facility] [address] [id number] [address] [place] [address], [place] [address] 23 Jan, 2014 [facility] [address] [id number] [address] [place] [address], [place] [address] 16 Jan, 2014 [facility] [address] [id number] [address] [place] [address], [place] [address] 16 Jan, 2014 [facility] [address] [id number] [address] [place] [address], [place] [address] 15 Jan, 2014 [facility] [address] [id number] [address] [place] [address], [place] [address] 15 Jan, 2014 [facility] [address] [id number] [address] [place] [address], [place] [address] 14 Jan, 2014 [facility] [address] [id number] [address] [place] [address], [place] [address] 14 Jan, 2014 [facility] [address] [id number] [address] [place] [address], [place] [address] 14 Jan, 2014 [facility] [address] [id number] [address] [place] [address], [place] [address] 14 Jan, 2014 [facility] [address] [id number] [address] [place] [id number] 18 Dec, 2013 [facility] [address] [id number] [address] [place] [address], [place] [address] 18 Dec, 2013 [facility] [address] [id number] [address] [place] [address], [place] [address] 10 Dec, 2013 [facility] [address] [id number] [address] [place] [address], [place] [address] 10 Dec, 2013 [facility] [address] [id number] [facility] [address] Nov, [facility] [address] [id number] [address] [place] [address], [place] [address] Nov, [facility] [address] [id number] [address] [place] [address], [place] [address] Nov, [facility] [address] [id number] [address] [place] [address], [place] [address] Nov, [facility] [address] [id number] [address] [place] [address], [place] [address] Nov, [facility] [address] [id number] [address] [place] [address], [place] [address] Oct, [facility] [address] [id number] [address] [place] [address], [place] [address] Oct, [facility] [address] [id number] [address] [place] [address], [place] [address] Oct, [facility] [address] [id number] [address] [place] [address], [place] [address] Oct, [facility] [address] [id number] [address] [place] [address], [place] [address] Sep, [facility] [address] [id number] [address] [place] [address], [place] [address] Sep, [facility] [address] [id number] [address] [place] [address], [place] [address] Sep, [facility] [address] [id number] [address] [place] [address], [place] [address] Sep, [facility] [address] [id number] [address] [place] [address], [place] [address] Sep, [facility] [address] [id number] [address] [place] [address], [place] [address] Sep, [facility] [address] [id number] [address] [place] [address], [place] [address] Sep, [facility] [address] [id number] [address] [place] [address], [place] [address] Sep, [facility] [address] [id number] [address] [place] [address], [place] [address] August, [facility] [address] [id number] [address] [place] [address], [place] [address] August, [facility] [address] [id number] [address] [place] [address], [place] [address] August, [facility] [address] [id number] [address] [place] [address], [place] [address] August, [facility] [address] [id number] [address] [place] [address], [place] [address] August, [facility] [address] [id number] [address] [place] [address], [place] [address] August, [facility] [address] [id number] [address] [place] [address], [place] [address] August, [facility] [address] [id number] [address] [place] [address], [place] [address] Jul, [facility] [address] [id number] [address] [place] [address], [place] [address] Jul, [facility] [address] [id number] [address] [place] [address], [place] [address] Jul, [facility] [address] [id number] [address] [place] [address], [place] [address] Jul, [facility] [address] [id number] [address] [place] [address], [place] [address] Jul, [facility] [address] [id number] [address] [place] [address], [place] [address] Jul, [facility] [address] [id number] [address] [place] [address], [place] [address] Jul, [facility] [address] [id number] [address] [place] [address], [place] [address] Jul, [facility] [address] [id number] [address] [place] [address], [place] [address] Jul, [facility] [address] [id number] [address] [place] [address], [place] [address] Jul, [facility] [address] [id number] [address] [place] [address], [place] [address] Jul, [facility] [address] [id number] [address] [place] [address], [place] [address] Jul, [facility] [address] [id number] [address] [place] [address], [place] [address] Jun, [facility] [address] [id number] [address] [place] [address], [place] [address] Jun, [facility] [address] [id number] [address] [place] [address], [place] [address] Jun, [facility] [address] [id number] [address] [place] [address], [place] [address] Jun, [facility] [address] [id number] [address] [place] [address], [place] [address] Jun, [facility] [address] [id number] [address] [place] [address], [place] [address] May, [facility] [address] [id number] [address] [place] [address], [place] [address] May, [facility] [address] [id number] [address] [place] [address], [place] [address] May, [facility] [address] [id number] [address] [place] [address], [place] [address] May, [facility] [address] [id number] [address] [place] [address], [place] [address] May, [facility] [address] [id number] [address] [place] [address], [place] [address] May, [facility] [address] [id number] [address] [place] [address], [place] [address] May, 2013 [facility] [address] [id number] [address] [place] [address], [place] [address] May, [facility] [address] [id number] [address] [place] [address], [place] [address] Mar, [facility] [address] [id number] [address] [place] [address], [place] [address] Mar, [facility] [address] [id number] [address] [place] [address], [place] [address] Mar, [facility] [address] [id number] [address] [place] [address], [place] [address] Mar, [facility] [address] [id number] [address] [place] [address], [place] [address] Mar, [facility] [address] [id number] [address] [place] [address], [place] [address] Mar, [facility] [address] [id number] [address] [place] [address], [place] [address] Feb, [facility] [address] [id number] [address] [place] [id number] Feb, [facility] [address] [id number] [address] [place] [address], [place] [address] Jan, [facility] [address] [id number] [address] [place] [id number] Jan, [facility] [address] [id number] [address] [place] [address], [place] [address] Jan, [facility] [address] [id number] [address] [place] [address], [place] [address] Jan, [facility] [address] [id number] [address] [place] [id number] Jan, [facility] [address] [id number] [address] [place] [id number] Jan, [facility] [address] [id number] [address] [place] [address], [place] [address] Jan, [facility] [address] [id number] [address] [place] [address], [place] [address] Jan, [facility] [address] [id number] [address] [place] [address], [place] [address] Jan, [facility] [address] [id number] [address] [place] [address], [place] [address] Jan, [facility] [address] [id number] [address] [place] [address], [place] [address] Dec, [facility] [address] [id number] [address] [place] [address], [place] [address] Nov, [facility] [address] [id number] [address] [place] [address], [place] [address] Nov, [facility] [address] [id number] [address] [place] [address], [place] [address] Nov, [facility] [address] [id number] [address] [place] [address], [place] [address] Oct, [facility] [address] [id number] [address] [place] [address], [place] [address] Oct, [facility] [address] [id number] [address] [place] [address], [place] [address] August, [facility] [address] [id number] [address] [place] [address], [place] [address] Apr, [facility] [address] [id number] [address] [place] [address], [place] [address] Apr, [facility] [address] [id number] [address] [place] [address], [place] [address] Feb, [facility] [address] [id number] [address] [place] [address], [place] [address] Feb, [facility] [address] [id number] [address] [place] [id number] Dec, [facility] [address] [facility] [id number] [address] [place] [id number] Dec, [facility] [address] [facility] [id number] [address] [place] [id number] Oct, [facility] [address] [facility] [id number] [address] [place] [id number] Oct, [facility] [address] [facility] [id number] [address] [place] [id number] Oct, [facility] [address] [facility] [id number] [address] [place] [id number] Jul, IMMUNIZATIONS No Known Immunizations SOCIAL HISTORY Never Assessed REASON FOR VISIT EMR-[facility] PLAN OF CARE VITAL SIGNS MEDICATIONS Unknown [...] EGD Hospitalization History several hospitalizations for psychosis/mental illness, last one in [facility] 4 years ago
--- OUTSIDE RECORDS SUMMARY | 2019-07-07 04:21 | XMS REPORT ---
Author Author Alayna MONTERROSO Organization [facility] Address [address] [place] [address] Care Team Providers Care Employment Law Specialist Name Role Phone PADMINI MONTERROSO Unavailable PROBLEMS Type Condition ICD9-CM Code AHV72-YX Code Onset Dates Condition S tatus SNOMED Code Problem History of lupus Z87.39 Active 312 421544 Problem OAB (overactive bladder) N32.81 Activ e 566956489 Problem Chronic pain syndrome G89.4 Active 773734439 Problem Type 2 diabetes mellitus wit hout complication, without long-term current use of insulin E11.9 Active 812524246 Problem Depression with anxiety F41.8 Active 157974915 Problem Paranoid schizophrenia F20.0 Active 05253086 Problem Essential hypertension I10 Active 78781022 Problem Dyslipidemia E78.5 Active 1938657 07 Problem Schizoaffective disorder, depressive type F25.1 Active 42088717 Problem Seasonal allergic rhinitis due to other allergic trigger J30.89 Active 152774776 Problem DM neuro manif type II E11.49 Active 70922167 Problem Primary insomnia F51.01 Active 397 2004 Problem Other allergic rhinitis J30.89 Active 117425637 Problem Menopausal syndrome (hot flashes) N95.1 Active 452713638 Problem Tobacco abuse Z72.0 Active 180382 000 Problem Other seasonal allergic rhinitis J30.2 Active 494125264 Problem Hypothyroidism (acquired) E03.9 Acti ve 823578110 Problem Gastroesophageal reflux disease, esophagitis pre sence not specified K21.9 Active 529069111 Problem Migraine without aura and without status migrain osus, not intractable G43.009 Active 376285520 Problem Cigarette nicotine dependence without complication F17.210 Active 81502839 Problem Morbid obesity due to excess calories E66.01 Active 016995963 Problem Allergic rhinitis, unspecified seasonality, unspecifie d trigger J30.9 Active 04404033 Problem Chronic obstructive pulmonary disease, unspecified COPD ty pe J44.9 Active 36164045 Problem Gastroesophageal reflux disease without esophagitis K21.9 Active 429275574 Problem COPD exacerbation J44.1 Active 19 6150955 Problem Seasonal allergic rhinitis due to pollen J30.1 Active 30946290 Problem Diabetic polyneuropathy associated with type 2 d iabetes mellitus E11.42 Active 213197944 Problem 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, without long-term current use of insulin E11.610 Active 497838078 ALLERGIES No Information ENCOUNTERS Encounter Location Date Diagnosis [facility] [address] [facility] [id number] [address] [place] [id number] Sep, [facility] [address] [facility] [id number] [address] [place] [id number] August, [facility] [address] [address] August, Disorder of bone density and structure, unspecified M85.9 [facility] [address] [place] [id number] August, Paranoid schizophrenia F20.0 [facility] [address] [id number] [address] [address] August, [facility] [address] [place] [id number] Jul, [facility] [address] [place] [id number] [place] [id number] Jul, Diabetic polyneuropathy asso ciated with type 2 diabetes mellitus E11.42 ; Paranoid schizophrenia F20.0 ; Preoperative clearance Z01.818 and Morbid obesity E66.01 [facility] [address] [facility] [id number] [address] [place] [id number] Jul, Paranoid schizophrenia F20.0 [facility] [address] [facility] [id number] [address] [place] [id number] Jul, [facility] [address] [place] [id number] [place] [id number] Jul, [place] [address] [place] [id number] [place] [id number] Jul, Cigarette nicotine dependenc e without complication F17.210 [place] [address] [facility] [id number] [address] [place] [id number] Jul, Type 2 diabetes mellitus wit hout complication, without long-term current use of insulin E11.9 and Hypothyroidism (acquired) E03.9 [place] [address] [place] [id number] [place] [id number] Jul, Encounter for Medicare annua l wellness exam Z00.00 ; Morbid obesity due to excess calories E66.01 ; Diabetic polyneuropathy associated with type 2 diabetes mellitus E11.42 ; Chronic obstructive pulmonary disease, unspecified COPD type J44.9 ; Schizoaffective disorder, depressive type F25.1 ; Hypothyroidism (acquired) E03.9 and Morbid obesity E66.01 [place] [address] [place] [id number] [address] [place] [id number] Jun, Gastroesophageal reflux dise ase without esophagitis K21.9 [place] [address] [place] [id number] [place] [id number] Jun, Paranoid schizophrenia F20.0 [place] [address] [place] [id number] [place] [id number] Jun, Schizoaffective disorder, de pressive type F25.1 [place] [address] [place] [id number] [place] [id number] Jun, [place] [address] [place] [id number] [place] [id number] Jun, Schizoaffective disorder, de pressive type F25.1 [place] [address] [facility] [id number] [address] [place] [id number] Jun, Cigarette nicotine dependenc e without complication F17.210 [place] [address] [facility] [id number] [address] [place] [id number] 18 Jun, 2018 Type 2 diabetes mellitus wit hout complication, without long-term current use of insulin E11.9 [facility] [address] [facility] [id number] [address] [place] [id number] Jun, [facility] [address] [facility] [id number] [address] [place] [id number] Jun, [facility] [address] [facility] [id number] [address] [place] [id number] Jun, [facility] [address] [facility] [id number] [address] [place] [id number] Jun, [facility] [address] [facility] [id number] [address] [place] [id number] Jun, [facility] [address] [place] [id number] [place] [id number] Jun, Paranoid schizophrenia F20.0 ; Type 2 diabetes mellitus without complication, without long-term current use of insulin E11.9 ; Hypothyroidism (acquired) E03.9 and Morbid obesity E66.01 [facility] [address] [facility] [id number] [address] [place] [id number] May, Paranoid schizophrenia F20.0 [place] [address] [place] [id number] [address] [place] [id number] 20 May, 2018 Hypothyroidism (acquired) E0 3.9 and Dyslipidemia E78.5 [place] [address] [place] [id number] [place] [id number] 19 May, 2018 Cigarette nicotine dependenc e without complication F17.210 [facility] [address] [facility] [id number] [address] [place] [id number] 18 May, 2018 [facility] [address] [facility] [id number] [address] [place] [id number] 14 May, 2018 Type 2 diabetes mellitus wit hout complication, without long-term current use of insulin E11.9 ; Essential hypertension I10 ; Hypothyroidism (acquired) E03.9 and Dyslipidemia E78.5 [facility] [address] [facility] [id number] [address] [place] [id number] May, [facility] [address] [phone] May, Schizoaffective disorder, de pressive type F25.1 [facility] [address] [address] May, Paranoid schizophrenia F20.0 [facility] [address] [address] May, [facility] [address] [place] [address] 07 May, 19 [place] [address] [address] May, [facility] [address] [address] May, Type 2 diabetes mellitus wit hout complication, without long-term current use of insulin E11.9 ; Essential hypertension I10 ; Hypothyroidism (acquired) E03.9 and Dyslipidemia E78.5 [facility] [address] [id number] May, [facility] [address] [address] May, Acute nasopharyngitis J00 [facility] [address] [address] May, Allergic rhinitis, unspecifi ed seasonality, unspecified trigger J30.9 [facility] [address] [address] May, [facility] [address] [address] Apr, Schizoaffective disorder, de pressive type F25.1 [facility] [address] [address] Apr, [facility] [address] [facility] [id number] [address] [place] [id number] Apr, Cigarette nicotine dependenc e without complication F17.210 [facility] [address] [facility] [id number] [address] [place] [id number] Apr, [facility] [address] [facility] [id number] [address] [place] [id number] Apr, Cigarette nicotine dependenc e without complication F17.210 [facility] [address] [facility] [id number] [address] [place] [id number] Apr, [facility] [address] [place] [id number] [address] [place] [id number] Apr, Migraine without aura and wi thout status migrainosus, not intractable G43.009 [place] [address] [place] [id number] [place] [id number] Apr, Migraine without aura and wi thout status migrainosus, not intractable G43.009 [facility] [address] [place] [id number] [address] [place] [id number] Mar, Schizoaffective disorder, de pressive type F25.1 ; BMI 45.0-49.9, adult Z68.42 and BMI 40.0-44.9, adult Z68.41 [place] [address] [place] [id number] [place] [id number] Mar, Primary insomnia F51.01 [facility] [address] [facility] [id number] [address] [place] [id number] Mar, [place] [address] [place] [id number] [place] [phone] Feb, Primary insomnia F51.01 [facility] [address] [facility] [id number] [address] [place] [id number] Feb, [place] [address] [place] [id number] [address] [place] [id number] Jan, Schizoaffective disorder, de pressive type F25.1 and BMI 45.0-49.9, adult Z68.42 [facility] [address] [id number] [address] [place] [id number] Jan, [facility] [address] [facility] [id number] [address] [place] [id number] 16 Jan, 2018 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, without long-term current use of insulin E11.610 ; Menopausal syndrome (hot flashes) N95.1 and BMI 40.0-44.9, adult Z68.41 [facility] [address] [id number] [address] [place] [id number] Jan, Paranoid schizophrenia F20.0 [facility] [address] [facility] [id number] [address] [place] [id number] Jan, [facility] [address] [facility] [id number] [address] [place] [id number] 04 Jan, 2018 Schizoaffective disorder, de pressive type F25.1 [facility] [address] [facility] [id number] [address] [place] [id number] Jan, [facility] [address] [facility] [id number] [address] [place] [id number] 02 Jan, 2018 Chronic obstructive pulmonar y disease, unspecified COPD type J44.9 ; BMI 45.0-49.9, adult Z68.42 ; Type 2 diabetes mellitus without complication, without long-term current use of insulin E11.9 ; Hypothyroidism (acquired) E03.9 ; Encounter for immunization Z23 ; Gastroesophageal reflux disease without esophagitis K21.9 ; Primary insomnia F51.01 and Acute nasopharyngitis J00 [facility] [address] [facility] [id number] [address] [place] [id number] Dec, [facility] [address] [facility] [id number] [address] [place] [id number] Dec, Schizoaffective disorder, de pressive type F25.1 and BMI 45.0-49.9, adult Z68.42 [facility] [address] [id number] [address] [place] [id number] 21 Dec, 2017 [facility] [address] [facility] [id number] [address] [place] [id number] 18 Dec, 2017 [facility] [address] [facility] [id number] [address] [place] [id number] 18 Dec, 2017 Acute non-recurrent frontal sinusitis J01.10 [facility] [address] [id number] [address] [place] [id number] 18 Dec, 2017 Acute non-recurrent frontal sinusitis J01.10 ; Weakness of left leg R29.898 ; At high risk for falls Z91.81 and BMI 45.0-49.9, adult Z68.42 [facility] [address] [facility] [id number] [address] [place] [id number] 17 Dec, 2017 [facility] [address] [facility] [id number] [address] [place] [id number] Dec, [facility] [address] [facility] [id number] [address] [place] [id number] Dec, Schizoaffective disorder, de pressive type F25.1 [facility] [address] [facility] [id number] [address] [place] [id number] Dec, Acute nasopharyngitis J00 [facility] [address] [facility] [id number] [address] [place] [id number] 05 Dec, 2017 Schizoaffective disorder, de pressive type F25.1 [facility] [address] [facility] [id number] [address] [place] [id number] Dec, [facility] [address] [facility] [id number] [address] [place] [id number] Nov, Schizoaffective disorder, de pressive type F25.1 and BMI 45.0-49.9, adult Z68.42 [facility] [address] [place] [id number] [address] [place] [id number] Nov, [place] [address] [place] [id number] [address] [place] [id number] Nov, [place] [address] [address] Nov, Schizoaffective disorder, de pressive type F25.1 [place] [address] [address] Nov, Well woman exam Z01.419 ; BM I 45.0-49.9, adult Z68.42 ; Screening breast examination Z12.31 and Dietary counseling and surveillance Z71.3 [place] [address] [address] Nov, Paranoid schizophrenia F20.0 [place] [address] [address] Nov, Gastroesophageal reflux dise ase, esophagitis presence not specified K21.9 [place] [address] [place] [id number] [address] [place] [phone] Oct, Paranoid schizophrenia F20.0 [id number] [place] [id number] Oct, Chronic pain syndrome G89.4 and Schizoaf fective disorder, depressive type F25.1 [place] [address] [place] [id number] [address] [place] [id number] Oct, Chronic pain syndrome G89.4 and Schizoaffective disorder, depressive type F25.1 [place] [address] [facility] [id number] [address] [place] [id number] Oct, Type 2 diabetes mellitus wit hout complication, without long-term current use of insulin E11.9 [place] [address] [place] [id number] [address] [place] [id number] Oct, Essential hypertension I10 a nd DM neuro manif type II E11.49 [place] [address] [place] [id number] [address] [place] [id number] Oct, [facility] [address] [place] [id number] [address] [place] [id number] Oct, Schizoaffective disorder, de pressive type F25.1 and BMI 45.0-49.9, adult Z68.42 [place] [address] [place] [id number] [address] [place] [id number] Oct, [facility] [address] [place] [id number] [place] [address] Oct, Paranoid schizophrenia F20.0 [place] [address] [place] [id number] [place] [id number] Oct, 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, without long-term current use of insulin E11.610 ; Essential hypertension I10 ; Hypothyroidism (acquired) E03.9 ; Chronic obstructive pulmonary disease, unspecified COPD type J44.9 and Diabetic polyneuropathy associated with type 2 diabetes mellitus E11.42 [place] [id number] [place] [id number] [place] [id number] Sep, Paranoid schizophrenia F20.0 [place] [address] [place] [id number] [place] [id number] Sep, Paranoid schizophrenia F20.0 and BMI 45.0-49.9, adult Z68.42 [place] [address] [place] [id number] [place] [id number] Sep, Schizoaffective disorder, de pressive type F25.1 [facility] [address] [place] [id number] [address] [place] [id number] Sep, [place] [address] [place] [id number] [place] [id number] Sep, Paranoid schizophrenia F20.0 [facility] [address] [place] [id number] [address] [place] [id number] Sep, [place] [address] [facility] [id number] [address] [place] [id number] Sep, Hypothyroidism (acquired) E0 3.9 [facility] [address] [place] [id number] [place] [id number] Sep, [facility] [address] [place] [id number] [address] [place] [phone] August, Schizoaffective disorder, de pressive type F25.1 [facility] [address] [place] [id number] [place] [phone] August, [facility] [address] [place] [id number] [place] [address] August, [facility] [address] [place] [id number] [place] [phone] August, [facility] [address] [place] [id number] [place] [address] August, Paranoid schizophrenia F20.0 [facility] [address] [place] [id number] [place] [address] August, History of lupus Z87.39 and Chronic pain syndrome G89.4 [facility] [address] [place] [id number] [place] [id number] August, [facility] [address] [place] [id number] [address] [place] [id number] August, Seasonal allergic rhinitis, unspecified trigger J30.2 and BMI 45.0-49.9, adult Z68.42 [facility] [address] [place] [id number] [address] [place] [id number] Jul, Schizoaffective disorder, de pressive type F25.1 [facility] [address] [place] [id number] [address] [place] [id number] Jul, [facility] [address] [place] [id number] [place] [phone] Jul, Hypothyroidism (acquired) E0 3.9 [facility] [address] [id number] Jul, Chronic obstructive pulmonar y disease, unspecified COPD type J44.9 and Type 2 diabetes mellitus without complication, without long-term current use of insulin E11.9 [facility] [address] [address] Jul, Paranoid schizophrenia F20.0 [facility] [address] [address] Jun, Hypothyroidism (acquired) E0 3.9 and Seasonal allergic rhinitis due to pollen J30.1 [facility] [address] [address] Jun, Shortness of breath at rest R06.02 ; COPD exacerbation J44.1 and BMI 45.0-49.9, adult Z68.42 [facility] [address] [address] Jun, [facility] [address] [address] Jun, Paranoid schizophrenia F20.0 ; Depression with anxiety F41.8 and BMI 45.0-49.9, adult Z68.42 [facility] [address] [address] Jun, Schizoaffective disorder, de pressive type F25.1 [facility] [id number] [place] [id number] Jun, 2017 Dental caries K02.9 [facility] [address] [address] Jun, Paranoid schizophrenia F20.0 [facility] [address] [address] May, Migraine without aura and wi thout status migrainosus, not intractable G43.009 ; DM neuro manif type II E11.49 and Type 2 diabetes mellitus without complication, without long-term current use of insulin E11.9 [facility] [address] [place] [id number] May, Migraine without aura and wi thout status migrainosus, not intractable G43.009 [facility] [address] [place] [id number] [place] [phone] May, Depression with anxiety F41. 8 [facility] [address] [facility] [id number] [address] [place] [id number] May, [facility] [address] [address] May, [facility] [address] [id number] May, [facility] [address] [phone] May, Hypothyroidism (acquired) E0 3.9 [facility] [address] [phone] May, Paranoid schizophrenia F20.0 [facility] [address] [id number] May, Type 2 diabetes mellitus wit hout [...] Z79.899 [facility] [address] [id number] May, Controlled substance agreeme nt signed Z79.899 [facility] [address] [facility] [id number] [place] [id number] Apr, [facility] [address] [id number] [address] [place] [id number] Apr, Dental examination Z01.20 [facility] [address] [facility] [id number] [address] [place] [id number] Apr, Paranoid schizophrenia F20.0 [facility] [address] [facility] [id number] [address] [place], [place] [id number] Apr, Hypertension, unspecified ty pe I10 [facility] [address] [facility] [id number] [address] [place] [id number] Apr, Paranoid schizophrenia F20.0 [facility] [address] [place] [id number] [address] [place] [id number] Apr, [facility] [address] [place] [id number] [address] [place] [id number] Apr, Tobacco abuse Z72.0 [facility] [address] [place] [id number] [address] [place] [id number] Apr, [facility] [address] [place] [id number] [address] [place] [id number] Mar, [facility] [address] [place] [id number] [address] [place] [id number] Mar, Paranoid schizophrenia F20.0 and BMI 45.0-49.9, adult Z68.42 [facility] [address] [facility] [id number] [address] [place] [id number] Mar, Schizoaffective disorder, de pressive type F25.1 [facility] [address] [facility] [id number] [address] [place] [id number] Mar, [facility] [address] [place] [id number] [address] [place] [id number] Mar, Hypothyroidism, unspecified type E03.9 [facility] [address] [address] Mar, Schizoaffective disorder, de pressive type F25.1 [facility] [address] [place] [id number] [place] [phone] Feb, Gastroenteritis K52.9 and BM I 45.0-49.9, adult Z68.42 [facility] [address] [address] Feb, [place] [address] [phone] Feb, [place] [address] [address] Feb, [place] [address] [address] Feb, [facility] [address] [address] Feb, Paranoid schizophrenia F20.0 [place] [address] [address] Feb, Gastroesophageal reflux dise ase without esophagitis K21.9 ; Other seasonal allergic rhinitis J30.2 ; Other allergic rhinitis J30.89 ; Tobacco abuse Z72.0 and BMI 40.0-44.9, adult Z68.41 [place] [address] [address] Feb, Onychomycosis B35.1 ; Callus of foot L84 and DM neuro manif type II E11.49 [place] [address] [place] [id number] [place] [phone] Jan, Chronic allergic rhinitis J3 0.9 [place] [address] [place] [id number] [place] [address] Jan, [place] [address] [facility] [id number] [address] [place] [phone] Jan, Schizoaffective disorder, de pressive type F25.1 [facility] [address] [facility] [id number] [address] [place] [id number] 10 Jan, 2017 [facility] [address] [place] [id number] [address] [place] [id number] 07 Jan, 2017 Sore throat J02.9 and Season al allergic rhinitis due to other allergic trigger J30.89 [facility] [address] [place] [id number] [address] [place] [id number] 04 Jan, 2017 [facility] [address] [place] [id number] [place] [id number] Jan, [facility] [address] [place] [id number] [address] [place] [id number] Jan, Chronic allergic rhinitis J3 0.9 [facility] [address] [place] [id number] [address] [place] [id number] 27 Dec, 2016 Paranoid schizophrenia F20.0 ; Primary insomnia F51.01 and Schizoaffective disorder, depressive type F25.1 [facility] [address] [place] [id number] [place] [id number] 21 Dec, 2016 Chronic pain syndrome G89.4 ; Cervicalgia of vxgxylly-ghdlxij-pjzyb region M54.2 ; Menopausal syndrome (hot flashes) N95.1 and Encounter for immunization Z23 [facility] [address] [place] [id number] [address] [place] [id number] 14 Dec, 2016 [place] [address] [place] [id number] [place] [id number] 13 Dec, 2016 [facility] [address] [place] [id number] [place] [id number] 08 Dec, 2016 Paranoid schizophrenia F20.0 [place] [address] [place] [id number] [place] [id number] Dec, Schizoaffective disorder, de pressive type F25.1 [facility] [address] [facility] [id number] [address] [place] [id number] Nov, Hypothyroidism, unspecified type E03.9 [facility] [address] [facility] [id number] [address] [place] [id number] Nov, Acute seasonal allergic rhin itis due to other allergen J30.89 [facility] [address] [facility] [id number] [address] [place] [id number] Nov, [facility] [address] [facility] [id number] [address] [place] [id number] Nov, Hypothyroidism, unspecified type E03.9 and Other elevated white blood cell (WBC) count D72.828 [place] [address] [facility] [id number] [address] [place] [id number] Nov, Schizoaffective disorder, de pressive type F25.1 [facility] [address] [facility] [id number] [address] [place] [id number] Nov, Paranoid schizophrenia F20.0 [facility] [address] [facility] [id number] [address] [place] [id number] Nov, Type 2 diabetes mellitus wit hout complication, without long-term current use of insulin E11.9 ; Morbid obesity due to excess calories E66.01 and Chronic pain syndrome G89.4 [facility] [address] [facility] [id number] [address] [place] [id number] Oct, Paranoid schizophrenia F20.0 [facility] [address] [facility] [id number] [address] [place] [id number] Oct, [facility] [address] [facility] [id number] [address] [place] [id number] Oct, Schizoaffective disorder, de pressive type F25.1 [facility] [address] [facility] [id number] [address] [place] [id number] Oct, Hypothyroidism, unspecified type E03.9 and Other elevated white blood cell (WBC) count D72.828 [facility] [address] [id number] [address] [place] [id number] Oct, Morbid obesity due to excess calories E66.01 ; Chronic obstructive pulmonary disease, unspecified COPD type J44.9 ; History of lupus Z87.39 ; Hypothyroidism, unspecified type E03.9 ; Gastroesophageal reflux disease without esophagitis K21.9 ; Primary insomnia F51.01 and Chronic pain syndrome G89.4 [facility] [address] [id number] [address] [place] [id number] Sep, [facility] [address] [id number] [address] [place] [phone] Sep, [facility] [address] [id number] [address] [place] [id number] Sep, [facility] [address] [facility] [id number] [address] [place] [id number] Sep, Paranoid schizophrenia F20.0 [facility] [address] [id number] [address] [place] [id number] Sep, [facility] [address] [id number] [address] [place] [id number] Sep, Paranoid schizophrenia F20.0 [facility] [address] [id number] [address] [place] [id number] Sep, [facility] [address] [id number] [address] [place] [id number] August, Paranoid schizophrenia F20.0 [facility] [address] [id number] [address] [place] [id number] Jul, [facility] [address] [facility] [id number] [address] [place] [id number] Jul, Type 2 diabetes mellitus wit hout complication, without long-term current use of insulin E11.9 ; Morbid obesity due to excess calories E66.01 ; Depression with anxiety F41.8 ; Hypothyroidism, unspecified type E03.9 ; Seasonal allergic rhinitis due to other allergic trigger J30.89 ; Pain, dental K08.89 and Gastroesophageal reflux disease without esophagitis K21.9 [facility] [address] [id number] [address] [place] [address] [id number] 12 Jul, 2016 Dental examination Z01.20 [facility] [address] [facility] [id number] [address] [place] [id number] 07 Jul, 2016 Paranoid schizophrenia F20.0 [place] [address] [place] [id number] [place] [id number] 13 Jun, 2016 Paranoid schizophrenia F20.0 and Depression with anxiety F41.8 [place] [address] [place] [id number] [place] [phone] Jun, Paranoid schizophrenia F20.0 and Depression with anxiety F41.8 [place] [address] [place] [id number] [address] [place] [id number] 09 Jun, 2016 [facility] [address] [place] [id number] [address] [place] [id number] Jun, [facility] [address] [place] [id number] [place] [id number] Jun, Seasonal allergic rhinitis d ue to other allergic trigger J30.89 [facility] [address] [place] [id number] [address] [place] [id number] May, Sore throat J02.9 ; Other vi ral agents as the cause of diseases classified elsewhere B97.89 and Acute upper respiratory infection, unspecified J06.9 [facility] [address] [facility] [id number] [address] [place] [id number] May, Paranoid schizophrenia F20.0 and Depression with anxiety F41.8 [facility] [address] [place] [id number] [address] [place] [id number] Apr, Other seasonal allergic rhin itis J30.2 [place] [address] [place] [id number] [address] [place] [id number] Apr, Paranoid schizophrenia F20.0 and Depression with anxiety F41.8 [facility] [address] [place] [id number] [place] [id number] Apr, Bronchitis J40 and Sore thro at J02.9 [facility] [address] [place] [id number] [place] [id number] Apr, Type 2 diabetes mellitus wit hout complication, without long-term current use of insulin E11.9 [facility] [address] [place] [id number] [place] [phone] Apr, Bronchitis J40 [place] [address] [id number] Apr, [place] [address] [id number] Apr, [place] [address] [address] Mar, Type 2 diabetes mellitus wit hout [...] R60.9 and Other seasonal allergic rhinitis J30.2 [facility] [address] [place] [id number] [address] [place] [phone] Mar, Paranoid schizophrenia F20.0 and Depression with anxiety F41.8 [place] [address] [id number] Feb, [place] [address] [id number] Feb, [place] [address] [id number] Feb, [facility] [address] [id number] [address] [place] [id number] Feb, [facility] [address] [id number] [address] [place] [id number] 14 Feb, 2016 Type 2 diabetes mellitus wit hout complication, without long-term current use of insulin E11.9 ; ARIAS on CPAP G47.33 and Preoperative evaluation to rule out surgical contraindication Z01.818 [facility] [address] [id number] [address] [place] [id number] 09 Feb, 2016 Paranoid schizophrenia F20.0 and Depression with anxiety F41.8 [facility] [address] [id number] [address] [place] [id number] Jan, [facility] [address] [id number] [address] [place] [id number] Jan, Paranoid schizophrenia F20.0 and Depression with anxiety F41.8 [facility] [address] [id number] [address] [place] [id number] 17 Jan, 2016 [facility] [address] [id number] [address] [place] [id number] Jan, Muscle strain T14.8 [facility] [address] [id number] [address] [place] [id number] Jan, Paranoid schizophrenia F20.0 [facility] [address] [id number] [address] [place] [id number] Jan, [facility] [address] [id number] [address] [place] [id number] Jan, Paranoid schizophrenia F20.0 and Depression with anxiety F41.8 [facility] [address] [id number] [address] [place] [id number] 05 Jan, 2016 [facility] [address] [id number] [address] [place] [id number] Jan, [facility] [address] [id number] [address] [place] [id number] 28 Dec, 2015 [facility] [address] [id number] [address] [place] [id number] 23 Dec, 2015 Paranoid schizophrenia F20.0 [facility] [address] [id number] [address] [place] [id number] 16 Dec, 2015 Paranoid schizophrenia F20.0 and Depression with anxiety F41.8 [facility] [address] [id number] [address] [place] [id number] Nov, [facility] [address] [id number] [address] [place] [id number] Nov, Paranoid schizophrenia F20.0 [facility] [address] [id number] [address] [place] [id number] Nov, Paranoid schizophrenia F20.0 and Depression with anxiety F41.8 [facility] [address] [id number] [address] [place] [id number] Nov, Type 2 diabetes mellitus wit hout complication, without long-term current use of insulin E11.9 ; Paranoid schizophrenia F20.0 ; Chronic obstructive pulmonary disease, unspecified COPD type J44.9 ; Morbid obesity due to excess calories E66.01 and Parkinsonian tremor G20 [facility] [address] [id number] [address] [place] [id number] Nov, [facility] [address] [id number] [address] [place] [id number] Oct, Paranoid schizophrenia F20.0 [facility] [address] [id number] [address] [place] [id number] Oct, Paranoid schizophrenia F20.0 [facility] [address] [id number] [address] [place] [id number] Oct, Paranoid schizophrenia F20.0 and Depression with anxiety F41.8 [facility] [address] [id number] [address] [place] [id number] Oct, [place] [address] [place] [id number] [place] [id number] Oct, Paranoid schizophrenia F20.0 and Depression with anxiety F41.8 [place] [address] [place] [id number] [place] [id number] Oct, Nasal sore J34.89 [place] [address] [place] [id number] [place] [id number] Oct, Type 2 diabetes mellitus wit hout complication, without long-term current use of insulin E11.9 ; Depression with anxiety F41.8 ; Hypothyroidism, unspecified type E03.9 and History of lupus Z87.39 [place] [address] [place] [id number] [address] [place] [id number] Oct, [place] [address] [id number] Oct, Type 2 diabetes mellitus wit hout [...] edema R60.9 and History of lupus Z87.39 [place] [id number] [place] [id number] Feb, [place] [address] [id number] Jan, [place] [address] [place] [id number] [place] [id number] Jan, [place] [address] [place] [id number] [address] [place] [id number] Jan, [facility] [address] [id number] [address] [place] [address], [place] [address] Dec, [facility] [address] [id number] [address] [place] [address], [place] [address] Nov, [facility] [address] [id number] [address] [place] [address], [place] [address] Nov, [facility] [address] [id number] [address] [place] [address], [place] [address] Oct, [facility] [address] [id number] [address] [place] [address], [place] [address] Oct, [facility] [address] [id number] [address] [place] [address], [place] [address] Oct, [facility] [address] [id number] [address] [place] [address], [place] [address] Sep, Allergic rhinitis 477.9 [facility] [address] [id number] [address] [place] [id number] Sep, Rhinitis, allergic 477.9 [facility] [address] [id number] [address] [place] [id number] Sep, Rhinitis, allergic 477.9 [facility] [address] [id number] [address] [place] [id number] Sep, [facility] [address] [id number] [address] [place] [id number] August, [facility] [address] [id number] [address] [place] [id number] August, [facility] [address] [id number] [address] [place] [id number] August, [facility] [address] [id number] [address] [place] [id number] Jul, [facility] [address] [id number] [address] [place] [id number] Jul, [facility] [address] [id number] [address] [place] [address], [place] [address] 13 Jul, 2014 [facility] [address] [id number] [address] [place] [address], [place] [address] 16 Jun, 2014 [facility] [address] [id number] [address] [place] [address], [place] [address] 16 Jun, 2014 [facility] [address] [id number] [address] [place] [address], [place] [address] Jun, [facility] [address] [id number] [address] [place] [address], [place] [address] Jun, [facility] [address] [id number] [address] [place] [address], [place] [address] Jun, [facility] [address] [id number] [address] [place] [address], [place] [address] Jun, [facility] [address] [id number] [address] [place] [address], [place] [address] Jun, [facility] [address] [id number] [address] [place] [address], [place] [address] Jun, [facility] [address] [id number] [address] [place] [address], [place] [address] May, [facility] [address] [id number] [address] [place] [address], [place] [address] May, [facility] [address] [id number] [address] [place] [address], [place] [address] May, [facility] [address] [id number] [address] [place] [address], [place] [address] May, [facility] [address] [id number] [address] [place] [address], [place] [address] Apr, [facility] [address] [id number] [address] [place] [address], [place] [address] Mar, [facility] [address] [id number] [address] [place] [address], [place] [address] Mar, [facility] [address] [id number] [address] [place] [address], [place] [address] Mar, [facility] [address] [id number] [address] [place] [address], [place] [address] Mar, [facility] [address] [id number] [address] [place] [address], [place] [address] Mar, [facility] [address] [id number] [address] [place] [address], [place] [address] Mar, [facility] [address] [id number] [address] [place] [address], [place] [address] Mar, [facility] [address] [id number] [address] [place] [address], [place] [address] Mar, [facility] [address] [id number] [address] [place] [address], [place] [address] Mar, [facility] [address] [id number] [address] [place] [address], [place] [address] Feb, [facility] [address] [id number] [address] [place] [address], [place] [address] Feb, [facility] [address] [id number] [address] [place] [address], [place] [address] Feb, [facility] [address] [id number] [address] [place] [address], [place] [address] Feb, [facility] [address] [id number] [address] [place] [address], [place] [address] Feb, [facility] [address] [id number] [address] [place] [address], [place] [address] Feb, [facility] [address] [id number] [address] [place] [address], [place] [address] Feb, [facility] [address] [id number] [address] [place] [address], [place] [address] Feb, [facility] [address] [id number] [address] [place] [address], [place] [address] 23 Jan, 2014 [facility] [address] [id number] [address] [place] [address], [place] [address] 23 Jan, 2014 [facility] [address] [id number] [address] [place] [address], [place] [address] 16 Jan, 2014 [facility] [address] [id number] [address] [place] [address], [place] [address] 16 Jan, 2014 [facility] [address] [id number] [address] [place] [address], [place] [address] 15 Jan, 2014 [facility] [address] [id number] [address] [place] [address], [place] [address] 15 Jan, 2014 [facility] [address] [id number] [address] [place] [address], [place] [address] 14 Jan, 2014 [facility] [address] [id number] [address] [place] [address], [place] [address] 14 Jan, 2014 [facility] [address] [id number] [address] [place] [address], [place] [address] 14 Jan, 2014 [facility] [address] [id number] [address] [place] [address], [place] [address] 14 Jan, 2014 [facility] [address] [id number] [address] [place] [address], [place] [address] 18 Dec, 2013 [facility] [address] [id number] [address] [place] [address], [place] [address] 18 Dec, 2013 [facility] [address] [id number] [address] [place] [address], [place] [address] 10 Dec, 2013 [facility] [address] [id number] [address] [place] [address], [place] [address] 10 Dec, 2013 [facility] [address] [id number] [address] [place] [address], [place] [address] 22 Nov, 2013 [facility] [address] [id number] [address] [place] [address], [place] [address] Nov, [facility] [address] [id number] [facility] [place] [address] Nov, [facility] [address] [id number] [address] [place] [address], [place] [address] Nov, [facility] [address] [id number] [address] [place] [address], [place] [address] Nov, [facility] [address] [id number] [address] [place] [address], [place] [address] Oct, [facility] [address] [id number] [address] [place] [address], [place] [address] Oct, [facility] [address] [id number] [address] [place] [address], [place] [address] Oct, [facility] [address] [id number] [address] [place] [address], [place] [address] Oct, [facility] [address] [id number] [address] [place] [address], [place] [address] Sep, [facility] [address] [id number] [address] [place] [address], [place] [address] Sep, [facility] [address] [id number] [address] [place] [address], [place] [address] Sep, [facility] [address] [id number] [address] [place] [address], [place] [address] Sep, [facility] [address] [id number] [address] [place] [address], [place] [address] Sep, [facility] [address] [id number] [address] [place] [address], [place] [address] Sep, [facility] [address] [id number] [address] [place] [address], [place] [address] Sep, [facility] [address] [id number] [address] [place] [address], [place] [address] Sep, [facility] [address] [id number] [facility] [place] [address] August, [facility] [address] [id number] [facility] [place] [address] August, [facility] [address] [id number] [facility] [place] [address] August, [facility] [address] [id number] [address] [place] [address], [place] [address] August, [facility] [address] [id number] [address] [place] [address], [place] [address] August, [facility] [address] [id number] [address] [place] [address], [place] [address] August, [facility] [address] [id number] [address] [place] [address], [place] [address] August, [facility] [address] [id number] [address] [place] [address], [place] [address] Jul, [facility] [address] [id number] [address] [place] [address], [place] [address] Jul, [facility] [address] [id number] [address] [place] [address], [place] [address] Jul, [facility] [address] [id number] [address] [place] [address], [place] [address] Jul, [facility] [address] [id number] [address] [place] [address], [place] [address] Jul, [facility] [address] [id number] [address] [place] [address], [place] [address] Jul, [facility] [address] [id number] [address] [place] [address], [place] [address] Jul, [facility] [address] [id number] [address] [place] [address], [place] [address] Jul, [facility] [address] [id number] [address] [place] [address], [place] [address] Jul, [facility] [address] [id number] [facility] [place] [address] Jul, [facility] [address] [id number] [address] [place] [address], [place] [address] Jul, [facility] [address] [id number] [address] [place] [address], [place] [address] Jul, [facility] [address] [id number] [address] [place] [address], [place] [address] Jun, [facility] [address] [id number] [address] [place] [address], [place] [address] Jun, [facility] [address] [id number] [address] [place] [address], [place] [address] Jun, [facility] [address] [id number] [address] [place] [address], [place] [address] Jun, [facility] [address] [id number] [address] [place] [address], [place] [address] Jun, [facility] [address] [id number] [address] [place] [address], [place] [address] May, [facility] [address] [id number] [address] [place] [address], [place] [address] May, [facility] [address] [id number] [address] [place] [address], [place] [address] May, [facility] [address] [id number] [address] [place] [address], [place] [address] May, [facility] [address] [id number] [address] [place] [address], [place] [address] May, [facility] [address] [id number] [address] [place] [address], [place] [address] May, [facility] [address] [id number] [address] [place] [address], [place] [address] May, [facility] [address] [id number] [address] [place] [address], [place] [address] May, [facility] [address] [id number] [address] [place] [address], [place] [address] Mar, [facility] [address] [id number] [address] [place] [address], [place] [address] Mar, [facility] [address] [id number] [address] [place] [address], [place] [address] Mar, [facility] [address] [id number] [address] [place] [address], [place] [address] Mar, [facility] [address] [id number] [address] [place] [address], [place] [address] Mar, [facility] [address] [id number] [address] [place] [address], [place] [address] Mar, [facility] [address] [id number] [address] [place] [address], [place] [address] Feb, [facility] [address] [id number] [address] [place] [address], [place] [address] Feb, [facility] [address] [id number] [address] [place] [address], [place] [address] Jan, [facility] [address] [id number] [address] [place] [address], [place] [address] Jan, [facility] [address] [id number] [address] [place] [address], [place] [address] Jan, [facility] [address] [id number] [address] [place] [address] Jan, [facility] [address] [id number] [address] [place] [address], [place] [address] Jan, [facility] [address] [id number] [address] [place] [address], [place] [address] Jan, [facility] [address] [id number] [address] [place] [address], [place] [address] Jan, [facility] [address] [id number] [address] [place] [address], [place] [address] Jan, [facility] [address] [id number] [address] [place] [address], [place] [address] Jan, [facility] [address] [id number] [address] [place] [address], [place] [address] Jan, [facility] [address] [id number] [address] [place] [address], [place] [address] Dec, [facility] [address] [id number] [address] [place] [address], [place] [address] Nov, [facility] [address] [id number] [address] [place] [address], [place] [address] Nov, [facility] [address] [id number] [address] [place] [address], [place] [address] Nov, [facility] [address] [id number] [address] [place] [address], [place] [address] Oct, [facility] [address] [id number] [address] [place] [address], [place] [address] Oct, [facility] [address] [id number] [address] [place] [address], [place] [address] August, [facility] [address] [id number] [address] [place] [address], [place] [address] Apr, [facility] [address] [id number] [address] [place] [address], [place] [address] Apr, [facility] [address] [id number] [address] [place] [address], [place] [address] Feb, [facility] [address] [id number] [address] [place] [address], [place] [address] Feb, [facility] [address] [id number] [address] [place] [address], [place] [address] Dec, [facility] [address] [id number] [address] [place] [address] Dec, [facility] [address] [facility] [id number] [address] [place] [address] Oct, [facility] [address] [facility] [id number] [address] [place] [address] Oct, [facility] [address] [facility] [id number] [address] [place] [address] Oct, [facility] [address] [facility] [id number] [address] [place] [address] Jul, IMMUNIZATIONS No Known Immunizations SOCIAL HISTORY Never Assessed REASON FOR VISIT DM ED Scheduled PLAN OF CARE VITAL SIGNS MEDICATIONS Unknown [...] hospitalizations for psychosis/mental illness, last one in [facility] 4 years ago
--- OUTSIDE RECORDS SUMMARY | 2019-07-07 04:43 | XMS REPORT ---
Author Author Alayna ROJAS Organization [facility] Address [address] [place] [address] Care Team Providers Care Clerk Typist Name Role Phone RADHA ROJAS Unavailable PROBLEMS Type Condition ICD9-CM Code VNS70-MM Code Onset Dates Condition S tatus SNOMED Code Problem Depression with anxiety F41.8 Active 282428687 Problem Morbid obesity due to excess calories E66.01 Active 613121198 Problem Chronic obstructive pulmonary disease, unspecified COPD ty pe J44.9 Active 89222227 Problem Paranoid schizophrenia F20.0 Active 76563451 Problem Chronic pain syndrome G89.4 Active 990222064 Problem History of lupus Z87.39 Active 312 731273 Problem Type 2 diabetes mellitus wit hout complication, without long-term current use of insulin E11.9 Active 342642642 Problem Dyslipidemia E78.5 Active 7044961 07 Problem Migraine without aura and without status migrain osus, not intractable G43.009 Active 335626084 Problem Primary insomnia F51.01 Active 397 2004 Problem Schizoaffective disorder, depressive type F25.1 Active 26445244 Problem Menopausal syndrome (hot flashes) N95.1 Active 628181395 Problem DM neuro manif type II E11.49 Active 08027501 Problem Other seasonal allergic rhinitis J30.2 Active 171702113 Problem Other allergic rhinitis J30.89 Active 715475654 Problem Gastroesophageal reflux disease, esophagitis pre sence not specified K21.9 Active 110740858 Problem Tobacco abuse Z72.0 Active 411922 000 Problem Essential hypertension I10 Active 00066142 Problem Hypothyroidism (acquired) E03.9 Acti ve 456376834 Problem COPD exacerbation J44.1 Active 19 1836402 Problem Allergic rhinitis, unspecified seasonality, unspecifie d trigger J30.9 Active 34190450 Problem Gastroesophageal reflux disease without esophagitis K21.9 Active 347601248 Problem Constipation by delayed colonic transit K59.01 Active 27103475 Problem OAB (overactive bladder) N32.81 Activ e 629915673 Problem Seasonal allergic rhinitis due to other allergic trigger J30.89 Active 112627197 Problem Seasonal allergic rhinitis due to pollen J30.1 Active 32388406 Problem 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, without long-term current use of insulin E11.610 Active 411101885 Problem Diabetic polyneuropathy associated with type 2 d iabetes mellitus E11.42 Active 803349919 Problem Cigarette nicotine dependence without complication F17.210 Active 27327369 ALLERGIES No Information ENCOUNTERS Encounter Location Date Diagnosis [facility] [address] [facility] [id number] [address] [place] [address] Dec, [facility] [address] [facility] [id number] [address] [place] [address] Nov, [facility] [address] [facility] [id number] [address] [place] [address] Nov, [facility] [address] [place] [id number] [address] [place] [address] Nov, [facility] [address] [facility] [id number] [address] [place] [address] Nov, [facility] [address] [facility] [id number] [address] [place] [address] Nov, Schizoaffective disorder, de pressive type F25.1 [facility] [address] [facility] [id number] [address] [place] [address] Nov, Constipation by delayed colo james transit K59.01 [facility] [address] [facility] [id number] [address] [place] [address] Oct, [facility] [address] [facility] [id number] [address] [place] [address] Oct, [facility] [address] [facility] [id number] [address] [place] [address] Oct, [facility] [address] [facility] [id number] [address] [place] [address] Oct, Chronic obstructive pulmonar y disease, unspecified COPD type J44.9 [facility] [address] [facility] [id number] [address] [place] [address] Oct, [facility] [address] [facility] [id number] [address] [place] [address] Sep, Paranoid schizophrenia F20.0 [facility] [address] [facility] [id number] [address] [place] [address] Sep, [facility] [address] [facility] [id number] [address] [place] [address] Sep, [facility] [address] [facility] [id number] [address] [place] [address] Sep, Encounter for immunization Z 23 [facility] [address] [facility] [id number] [address] [place] [address] Sep, [facility] [address] [facility] [id number] [address] [place] [address] Sep, Closed fracture of right ank le, sequela S82.891S ; Morbid obesity E66.01 and Heat rash L74.0 [facility] [address] [facility] [id number] [address] [place] [address] Sep, Schizoaffective disorder, de pressive type F25.1 [facility] [address] [facility] [id number] [address] [place] [address] Sep, [facility] [address] [facility] [id number] [address] [place] [address] Sep, [facility] [address] [facility] [id number] [address] [place] [address] Sep, [facility] [address] [facility] [id number] [address] [place] [address] Sep, [facility] [address] [facility] [id number] [address] [place] [address] Sep, [facility] [address] [id number] [address] [place] [address] Sep, [facility] [address] [id number] [address] [place] [address] Sep, [facility] [address] [facility] [id number] [address] [place] [address] Sep, [facility] [address] [facility] [id number] [address] [place] [address] Sep, [facility] [address] [facility] [id number] [address] [place] [address] August, Paranoid schizophrenia F20.0 [facility] [address] [facility] [id number] [address] [place] [address] August, [facility] [address] [facility] [id number] [address] [place] [address] August, [facility] [address] [facility] [id number] [address] [place] [address] August, [facility] [address] [facility] [id number] [address] [place] [address] August, Type 2 diabetes mellitus wit hout complication, without long-term current use of insulin E11.9 ; Closed fracture of right ankle, initial encounter S82.891A ; Constipation by delayed colonic transit K59.01 ; Osteoporosis with pathological fracture, initial encounter M80.00XA ; Encounter for immunization Z23 and Morbid obesity E66.01 [facility] [address] [facility] [id number] [address] [place] [address] August, [facility] [address] [facility] [id number] [address] [place] [address] August, [facility] [address] [facility] [id number] [address] [place] [address] August, Acquired deformity of muscul oskeletal system, unspecified M95.9 [facility] [address] [facility] [id number] [address] [place] [address] August, Paranoid schizophrenia F20.0 [facility] [address] [id number] [address] [address] August, [place] [address] [place] [address] Jul, [place] [address] [place] [id number] [address] [place] [address] Jul, Diabetic polyneuropathy asso ciated with type 2 diabetes mellitus E11.42 ; Paranoid schizophrenia F20.0 ; Preoperative clearance Z01.818 and Morbid obesity E66.01 [place] [address] [facility] [id number] [address] [place] [address] Jul, Paranoid schizophrenia F20.0 [place] [address] [place] [id number] [address] [place] [address] Jul, [place] [address] [place] [address] Jul, [facility] [address] [place] [id number] [address] [place] [address] Jul, Cigarette nicotine dependenc e without complication F17.210 [place] [address] [place] [id number] [address] [place] [address] Jul, Type 2 diabetes mellitus wit hout complication, without long-term current use of insulin E11.9 and Hypothyroidism (acquired) E03.9 [place] [address] [place] [id number] [address] [place] [address] Jul, Encounter for Medicare annua l wellness exam Z00.00 ; Morbid obesity due to excess calories E66.01 ; Diabetic polyneuropathy associated with type 2 diabetes mellitus E11.42 ; Chronic obstructive pulmonary disease, unspecified COPD type J44.9 ; Schizoaffective disorder, depressive type F25.1 ; Hypothyroidism (acquired) E03.9 and Morbid obesity E66.01 [facility] [address] [place] [id number] [address] [place] [address] Jun, Gastroesophageal reflux dise ase without esophagitis K21.9 [place] [address] [facility] [id number] [address] [place] [address] Jun, Paranoid schizophrenia F20.0 [facility] [address] [facility] [id number] [address] [place] [address] Jun, Schizoaffective disorder, de pressive type F25.1 [place] [address] [facility] [id number] [address] [place] [address] Jun, [facility] [address] [facility] [id number] [address] [place] [address] Jun, Schizoaffective disorder, de pressive type F25.1 [place] [address] [facility] [id number] [place] [address] Jun, Cigarette nicotine dependenc e without complication F17.210 [place] [address] [address] Jun, Type 2 diabetes mellitus wit hout complication, without long-term current use of insulin E11.9 [place] [address] [place] [address] Jun, [place] [address] [place] [id number] [place] [address] Jun, [place] [address] [place] [id number] [address] [place] [address] Jun, [place] [address] [place] [id number] [address] [place] [address] Jun, [facility] [address] [facility] [id number] [address] [place] [address] Jun, [place] [address] [place] [id number] [place] [address] 06 Jun, 2018 Paranoid schizophrenia F20.0 ; Type 2 diabetes mellitus without complication, without long-term current use of insulin E11.9 ; Hypothyroidism (acquired) E03.9 and Morbid obesity E66.01 [place] [address] [place] [address] May, Paranoid schizophrenia F20.0 [place] [address] [place] [id number] [place] [address] 20 May, 2018 Hypothyroidism (acquired) E0 3.9 and Dyslipidemia E78.5 [place] [address] [address] 19 May, 2018 Cigarette nicotine dependenc e without complication F17.210 [place] [address] [place] [id number] [address] [place] [address] May, [place] [address] [address] 14 May, 2018 Type 2 diabetes mellitus wit hout complication, without long-term current use of insulin E11.9 ; Essential hypertension I10 ; Hypothyroidism (acquired) E03.9 and Dyslipidemia E78.5 [place] [address] [place] [id number] [address] [place] [address] May, [place] [address] [address] May, Schizoaffective disorder, de pressive type F25.1 [place] [address] [place] [id number] [address] [place] [address] May, Paranoid schizophrenia F20.0 [place] [address] [place] [id number] [address] [place] [address] May, [facility] [address] [place] [address] May, 19 [place] [address] [address] May, [place] [address] [place] [id number] [address] [place] [address] May, Type 2 diabetes mellitus wit hout complication, without long-term current use of insulin E11.9 ; Essential hypertension I10 ; Hypothyroidism (acquired) E03.9 and Dyslipidemia E78.5 [facility] [address] [facility] [id number] [address] [place] [address] 04 May, 2018 [facility] [address] [facility] [id number] [address] [place] [address] 04 May, 2018 Acute nasopharyngitis J00 [facility] [address] [facility] [id number] [address] [place] [address] 04 May, 2018 Allergic rhinitis, unspecifi ed seasonality, unspecified trigger J30.9 [facility] [address] [facility] [id number] [address] [place] [address] May, [facility] [address] [place] [id number] [place] [address] Apr, Schizoaffective disorder, de pressive type F25.1 [place] [address] [place] [id number] [address] [place] [address] Apr, [facility] [address] [place] [id number] [address] [place] [address] Apr, Cigarette nicotine dependenc e without complication F17.210 [place] [address] [place] [id number] [address] [place] [address] Apr, [place] [address] [place] [id number] [address] [place] [address] Apr, Cigarette nicotine dependenc e without complication F17.210 [place] [address] [facility] [id number] [address] [place] [address] Apr, [place] [address] [place] [id number] [place] [address] Apr, Migraine without aura and wi thout status migrainosus, not intractable G43.009 [place] [address] [place] [id number] [address] [place] [address] Apr, Migraine without aura and wi thout status migrainosus, not intractable G43.009 [facility] [address] [facility] [id number] [address] [place] [address] Mar, Schizoaffective disorder, de pressive type F25.1 ; BMI 45.0-49.9, adult Z68.42 and BMI 40.0-44.9, adult Z68.41 [facility] [address] [place] [id number] [address] [place] [address] Mar, Primary insomnia F51.01 [facility] [address] [facility] [id number] [address] [place] [address] Mar, [place] [address] [place] [id number] [place] [address] Feb, Primary insomnia F51.01 [facility] [address] [facility] [id number] [address] [place] [address] Feb, [facility] [address] [place] [id number] [place] [address] Jan, Schizoaffective disorder, de pressive type F25.1 and BMI 45.0-49.9, adult Z68.42 [place] [address] [place] [id number] [place] [address] Jan, [facility] [address] [place] [id number] [address] [place] [address] Jan, 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, without long-term current use of insulin E11.610 ; Menopausal syndrome (hot flashes) N95.1 and BMI 40.0-44.9, adult Z68.41 [facility] [address] [place] [id number] [address] [place] [address] Jan, Paranoid schizophrenia F20.0 [facility] [address] [place] [id number] [address] [place] [address] Jan, [facility] [address] [place] [id number] [address] [place] [address] Jan, Schizoaffective disorder, de pressive type F25.1 [facility] [address] [facility] [id number] [address] [place] [address] Jan, [facility] [address] [facility] [id number] [address] [place] [address] 02 Jan, 2018 Chronic obstructive pulmonar y disease, unspecified COPD type J44.9 ; BMI 45.0-49.9, adult Z68.42 ; Type 2 diabetes mellitus without complication, without long-term current use of insulin E11.9 ; Hypothyroidism (acquired) E03.9 ; Encounter for immunization Z23 ; Gastroesophageal reflux disease without esophagitis K21.9 ; Primary insomnia F51.01 and Acute nasopharyngitis J00 [place] [address] [facility] [id number] [address] [place] [address] 27 Dec, 2017 [place] [address] [place] [id number] [address] [place] [address] 21 Dec, 2017 Schizoaffective disorder, de pressive type F25.1 and BMI 45.0-49.9, adult Z68.42 [place] [address] [facility] [id number] [address] [place] [address] Dec, [place] [address] [facility] [id number] [address] [place] [address] 18 Dec, 2017 [place] [address] [facility] [id number] [address] [place] [address] 18 Dec, 2017 Acute non-recurrent frontal sinusitis J01.10 [facility] [address] [facility] [id number] [address] [place] [address] 18 Dec, 2017 Acute non-recurrent frontal sinusitis J01.10 ; Weakness of left leg R29.898 ; At high risk for falls Z91.81 and BMI 45.0-49.9, adult Z68.42 [facility] [address] [facility] [id number] [address] [place] [address] 17 Dec, 2017 [facility] [address] [place] [id number] [address] [place] [address] Dec, [facility] [address] [facility] [id number] [address] [place] [address] Dec, Schizoaffective disorder, de pressive type F25.1 [facility] [address] [facility] [id number] [address] [place] [address] Dec, Acute nasopharyngitis J00 [facility] [address] [facility] [id number] [address] [place] [address] Dec, Schizoaffective disorder, de pressive type F25.1 [facility] [address] [facility] [id number] [address] [place] [address] Dec, [facility] [address] [place] [id number] [address] [place] [address] Nov, Schizoaffective disorder, de pressive type F25.1 and BMI 45.0-49.9, adult Z68.42 [facility] [address] [place] [address] Nov, [facility] [address] [place] [id number] [address] [place] [address] Nov, [facility] [address] [address] Nov, Schizoaffective disorder, de pressive type F25.1 [facility] [address] [place] [address] Nov, Well woman exam Z01.419 ; BM I 45.0-49.9, adult Z68.42 ; Screening breast examination Z12.31 and Dietary counseling and surveillance Z71.3 [facility] [address] [place] [id number] [address] [place] [address] Nov, Paranoid schizophrenia F20.0 [facility] [address] [place] [id number] [address] [place] [address] Nov, Gastroesophageal reflux dise ase, esophagitis presence not specified K21.9 [facility] [address] [facility] [id number] [address] [place] [address] Oct, Paranoid schizophrenia F20.0 [facility] [address] [id number] [place] [address] Oct, Chronic pain syndrome G89.4 and Schizoaf fective disorder, depressive type F25.1 [place] [address] [facility] [id number] [address] [place] [address] Oct, Chronic pain syndrome G89.4 and Schizoaffective disorder, depressive type F25.1 [place] [address] [facility] [id number] [address] [place] [address] Oct, Type 2 diabetes mellitus wit hout complication, without long-term current use of insulin E11.9 [place] [address] [place] [id number] [address] [place] [address] Oct, Essential hypertension I10 a nd DM neuro manif type II E11.49 [place] [address] [facility] [id number] [address] [place] [address] Oct, [place] [address] [place] [id number] [place] [address] Oct, Schizoaffective disorder, de pressive type F25.1 and BMI 45.0-49.9, adult Z68.42 [place] [address] [facility] [id number] [address] [place] [address] Oct, [place] [address] [place] [id number] [address] [place] [id number] Oct, Paranoid schizophrenia F20.0 [place] [address] [address] [facility] [id number] [address] [place] [id number] Oct, 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, without long-term current use of insulin E11.610 ; Essential hypertension I10 ; Hypothyroidism (acquired) E03.9 ; Chronic obstructive pulmonary disease, unspecified COPD type J44.9 and Diabetic polyneuropathy associated with type 2 diabetes mellitus E11.42 [place] [address] [id number] [address] [place] [id number] Sep, Paranoid schizophrenia F20.0 [facility] [address] [id number] [address] [place] [id number] Sep, Paranoid schizophrenia F20.0 and BMI 45.0-49.9, adult Z68.42 [facility] [address] [id number] [address] [place] [id number] Sep, Schizoaffective disorder, de pressive type F25.1 [facility] [address] [id number] [address] [place] [phone] Sep, [facility] [address] [id number] [address] [place] [id number] Sep, Paranoid schizophrenia F20.0 [facility] [address] [id number] [address] [place] [phone] Sep, [facility] [address] [id number] [address] [place] [id number] 06 Sep, 2017 Hypothyroidism (acquired) E0 3.9 [facility] [address] [id number] [address] [place] [id number] Sep, [facility] [address] [facility] [id number] [address] [place] [id number] August, Schizoaffective disorder, de pressive type F25.1 [place] [facility] [address] [id number] [address] [place] [address] August, [facility] [address] [facility] [id number] [address] [place] [address] August, [facility] [address] [facility] [id number] [address] [place] [address] August, [facility] [address] [facility] [id number] [address] [place] [address] August, Paranoid schizophrenia F20.0 [facility] [address] [address] August, History of lupus Z87.39 and Chronic pain syndrome G89.4 [place] [address] [address] August, [facility] [place] [address] [address] August, Seasonal allergic rhinitis, unspecified trigger J30.2 and BMI 45.0-49.9, adult Z68.[address] [address] Jul, Schizoaffective disorder, de pressive type F25.1 [place] [address] [address] Jul, [address] [address] Jul, Hypothyroidism (acquired) E0 3.[address] [address] Jul, Chronic obstructive pulmonar y disease, unspecified COPD type J44.9 and Type 2 diabetes mellitus without complication, without long-term current use of insulin E11.[address] [address] Jul, Paranoid schizophrenia F20.[address] [address] Jun, Hypothyroidism (acquired) E0 3.9 and Seasonal allergic rhinitis due to pollen J30.1 [facility] [address] [address] Jun, Shortness of breath at rest R06.02 ; COPD exacerbation J44.1 and BMI 45.0-49.9, adult Z68.[address] [address] Jun, [facility] [address] [facility] [id number] [address] [place] [address] Jun, Paranoid schizophrenia F20.0 ; Depression with anxiety F41.8 and BMI 45.0-49.9, adult Z68.42 [facility] [address] [facility] [id number] [address] [place] [address] Jun, Schizoaffective disorder, de pressive type F25.1 [facility] [address] [id number] [address] [place] [id number] Jun, Dental caries K02.9 [facility] [address] [facility] [id number] [place] [address] Jun, Paranoid schizophrenia F20.0 [facility] [address] [facility] [id number] [address] [place] [address] May, Migraine without aura and wi thout status migrainosus, not intractable G43.009 ; DM neuro manif type II E11.49 and Type 2 diabetes mellitus without complication, without long-term current use of insulin E11.9 [facility] [address] [facility] [id number] [address] [place] [address] May, Migraine without aura and wi thout status migrainosus, not intractable G43.009 [facility] [address] [facility] [id number] [address] [place] [address] May, Depression with anxiety F41. 8 [facility] [address] [id number] [address] [place] [id number] May, [facility] [address] [facility] [id number] [address] [place] [address] May, [facility] [address] [facility] [id number] [address] [place] [address] May, [facility] [address] [facility] [id number] [address] [place] [address] May, Hypothyroidism (acquired) E0 3.9 [place] [id number] [address] [place] [address] 08 May, 2017 Paranoid schizophrenia F20.0 [place] [address] [address] 08 May, 2017 Type 2 diabetes mellitus [...] N32.81 and Controlled substance agreement signed Z79.899 [place] [address] [address] 02 May, 2017 Controlled substance agreeme nt signed Z79.899 [place] [address] [address] Apr, [facility] [address] [place] [id number] [address] [place] [address] [id number] Apr, Dental examination Z01.20 [place] [address] [address] Apr, Paranoid schizophrenia F20.0 [place] [address] [address] [place] [id number] [address] [place] [address] Apr, Hypertension, unspecified ty pe I10 [place] [address] [address] Apr, Paranoid schizophrenia F20.0 [place] [address] [address] [place] [id number] [address] [place] [address] Apr, [place] [address] [address] [place] [address] [place] [address] Apr, Tobacco abuse Z72.0 [facility] [address] [facility] [id number] [address] [place] [address] Apr, [facility] [address] [facility] [id number] [address] [place] [address] Mar, [facility] [address] [place] [id number] [address] [place] [address] Mar, Paranoid schizophrenia F20.0 and BMI 45.0-49.9, adult Z68.42 [facility] [address] [place] [id number] [address] [place] [address] Mar, Schizoaffective disorder, de pressive type F25.1 [facility] [address] [place] [id number] [address] [place] [address] Mar, [facility] [address] [place] [id number] [place] [address] Mar, Hypothyroidism, unspecified type E03.9 [facility] [address] [place] [id number] [address] [place] [address] Mar, Schizoaffective disorder, de pressive type F25.1 [facility] [address] [facility] [id number] [address] [place] [address] Feb, Gastroenteritis K52.9 and BM I 45.0-49.9, adult Z68.42 [facility] [address] [place] [id number] [address] [place] [address] Feb, [facility] [address] [place] [id number] [address] [place] [address] Feb, [facility] [address] [place] [id number] [address] [place] [address] Feb, [facility] [address] [place] [id number] [address] [place] [address] Feb, [facility] [address] [address] Feb, Paranoid schizophrenia F20.[address] [address] Feb, Gastroesophageal reflux dise ase without esophagitis K21.9 ; Other seasonal allergic rhinitis J30.2 ; Other allergic rhinitis J30.89 ; Tobacco abuse Z72.0 and BMI 40.0-44.9, adult Z68.[address] [address] Feb, Onychomycosis B35.1 ; Callus of foot L84 and DM neuro manif type II E11.[address] [address] Jan, Chronic allergic rhinitis J3 0.[address] [address] Jan, [address] [address] Jan, Schizoaffective disorder, de pressive type F25.[address] [address] Jan, [facility] [address] [place] [address] Jan, Sore throat J02.9 and Season al allergic rhinitis due to other allergic trigger J30.89 [place] [address] [address] Jan, [address] [address] Jan, [facility] [address] [place] [address] Jan, Chronic allergic rhinitis J3 0.[address] [address] Dec, Paranoid schizophrenia F20.0 ; Primary insomnia F51.01 and Schizoaffective disorder, depressive type F25.1 [facility] [address] [facility] [id number] [address] [place] [address] Dec, Chronic pain syndrome G89.4 ; Cervicalgia of amjkyhue-wsutwti-mensv region M54.2 ; Menopausal syndrome (hot flashes) N95.1 and Encounter for immunization Z23 [facility] [address] [facility] [id number] [address] [place] [address] 14 Dec, 2016 [facility] [address] [facility] [id number] [address] [place] [address] Dec, [place] [address] [address] [place] [id number] [address] [place] [address] Dec, Paranoid schizophrenia F20.0 [facility] [address] [place] [id number] [address] [place] [address] Dec, Schizoaffective disorder, de pressive type F25.1 [facility] [address] [place] [id number] [address] [place] [address] Nov, Hypothyroidism, unspecified type E03.9 [facility] [address] [facility] [id number] [address] [place] [address] Nov, Acute seasonal allergic rhin itis due to other allergen J30.89 [facility] [address] [facility] [id number] [address] [place] [address] Nov, [facility] [address] [facility] [id number] [address] [place] [address] Nov, Hypothyroidism, unspecified type E03.9 and Other elevated white blood cell (WBC) count D72.828 [facility] [address] [facility] [id number] [address] [place] [address] Nov, Schizoaffective disorder, de pressive type F25.1 [facility] [address] [place] [id number] [address] [place] [address] Nov, Paranoid schizophrenia F20.0 [place] [address] [facility] [id number] [address] [place] [address] Nov, Type 2 diabetes mellitus wit hout complication, without long-term current use of insulin E11.9 ; Morbid obesity due to excess calories E66.01 and Chronic pain syndrome G89.4 [place] [address] [address] [place] [id number] [address] [place] [address] Oct, Paranoid schizophrenia F20.0 [place] [address] [address] [place] [id number] [address] [place] [address] Oct, [place] [address] [place] [id number] [place] [address] Oct, Schizoaffective disorder, de pressive type F25.1 [place] [address] [place] [address] Oct, Hypothyroidism, unspecified type E03.9 and Other elevated white blood cell (WBC) count D72.828 [place] [address] [address] [place] [id number] [address] [place] [address] Oct, Morbid obesity due to excess calories E66.01 ; Chronic obstructive pulmonary disease, unspecified COPD type J44.9 ; History of lupus Z87.39 ; Hypothyroidism, unspecified type E03.9 ; Gastroesophageal reflux disease without esophagitis K21.9 ; Primary insomnia F51.01 and Chronic pain syndrome G89.4 [place] [id number] [address] [place] [address] Sep, [place] [address] [facility] [id number] [address] [place] [address] Sep, [place] [address] [place] [id number] [address] [place] [address] Sep, [facility] [address] [place] [id number] [address] [place] [address] Sep, Paranoid schizophrenia F20.0 [facility] [address] [id number] [address] [place] [address] Sep, [facility] [address] [id number] [address] [place] [address] Sep, Paranoid schizophrenia F20.0 [facility] [address] [id number] [address] [place] [address] Sep, [facility] [address] [id number] [address] [place] [address] August, Paranoid schizophrenia F20.0 [facility] [address] [facility] [id number] [address] [place] [address] Jul, [facility] [address] [facility] [id number] [address] [place] [address] Jul, Type 2 diabetes mellitus wit hout complication, without long-term current use of insulin E11.9 ; Morbid obesity due to excess calories E66.01 ; Depression with anxiety F41.8 ; Hypothyroidism, unspecified type E03.9 ; Seasonal allergic rhinitis due to other allergic trigger J30.89 ; Pain, dental K08.89 and Gastroesophageal reflux disease without esophagitis K21.9 [facility] [address] [id number] [address] [place] [id number] Jul, Dental examination Z01.20 [facility] [address] [facility] [id number] [address] [place] [address] Jul, Paranoid schizophrenia F20.0 [facility] [address] [facility] [id number] [address] [place] [address] Jun, Paranoid schizophrenia F20.0 and Depression with anxiety F41.8 [facility] [address] [facility] [id number] [address] [place] [address] Jun, Paranoid schizophrenia F20.0 and Depression with anxiety F41.8 [facility] [address] [facility] [id number] [address] [place] [address] Jun, [facility] [address] [place] [id number] [address] [place] [address] 08 Jun, 2016 [facility] [address] [place] [id number] [place] [address] 08 Jun, 2016 Seasonal allergic rhinitis d ue to other allergic trigger J30.89 [facility] [address] [place] [id number] [address] [place] [address] 25 May, 2016 Sore throat J02.9 ; Other vi ral agents as the cause of diseases classified elsewhere B97.89 and Acute upper respiratory infection, unspecified J06.9 [facility] [address] [place] [id number] [place] [address] 08 May, 2016 Paranoid schizophrenia F20.0 and Depression with anxiety F41.8 [place] [address] [address] Apr, Other seasonal allergic rhin itis J30.2 [place] [address] [address] Apr, Paranoid schizophrenia F20.0 and Depression with anxiety F41.8 [facility] [address] [address] Apr, Bronchitis J40 and Sore thro at J02.9 [facility] [address] [place] [id number] [place] [address] Apr, Type 2 diabetes mellitus wit hout complication, without long-term current use of insulin E11.9 [facility] [address] [place] [id number] [address] [place] [address] Apr, Bronchitis J40 [place] [address] [address] Apr, [facility] [address] [place] [id number] [place] [address] Apr, [place] [address] [address] Mar, Type 2 diabetes mellitus wit hout [...] Other seasonal allergic rhinitis J30.2 [place] [address] N [facility] [id number] [address] [place] [address] Mar, Paranoid schizophrenia F20.0 and Depression with anxiety F41.8 [place] [address] [address] [facility] [id number] [address] [place] [address] Feb, [place] [address] [place] [address] Feb, [place] [address] [facility] [id number] [address] [place] [address] Feb, [place] [address] [facility] [id number] [address] [place] [address] Feb, [place] [address] [address] Feb, Type 2 diabetes mellitus wit hout complication, without long-term current use of insulin E11.9 ; ARIAS on CPAP G47.33 and Preoperative evaluation to rule out surgical contraindication Z01.818 [place] [address] [address] [facility] [id number] [address] [place] [address] Feb, Paranoid schizophrenia F20.0 and Depression with anxiety F41.8 [place] [address] [place] [address] Jan, [place] [address] [facility] [id number] [address] [place] [address] Jan, Paranoid schizophrenia F20.0 and Depression with anxiety F41.8 [place] [address] [address] [place] [address] [place] [address] 17 Jan, 2016 [facility] [address] [id number] [address] [place] [address] 14 Jan, 2016 Muscle strain T14.8 [facility] [address] [id number] [address] [place] [address] 10 Jan, 2016 Paranoid schizophrenia F20.0 [facility] [address] [id number] [address] [place] [address] 07 Jan, 2016 [facility] [address] [id number] [address] [place] [address] 05 Jan, 2016 Paranoid schizophrenia F20.0 and Depression with anxiety F41.8 [facility] [address] [id number] [address] [place] [address] 05 Jan, 2016 [facility] [address] [id number] [address] [place] [address] Jan, [facility] [address] [id number] [address] [place] [address] 28 Dec, 2015 [facility] [address] [id number] [address] [place] [address] 23 Dec, 2015 Paranoid schizophrenia F20.0 [facility] [address] [id number] [address] [place] [address] 16 Dec, 2015 Paranoid schizophrenia F20.0 and Depression with anxiety F41.8 [facility] [address] [id number] [address] [place] [address] 31 Nov, 2015 [facility] [address] [id number] [address] [place] [address] 24 Nov, 2015 Paranoid schizophrenia F20.0 [facility] [address] [id number] [address] [place] [address] Nov, Paranoid schizophrenia F20.0 and Depression with anxiety F41.8 [facility] [address] [id number] [address] [place] [address] Nov, Type 2 diabetes mellitus wit hout complication, without long-term current use of insulin E11.9 ; Paranoid schizophrenia F20.0 ; Chronic obstructive pulmonary disease, unspecified COPD type J44.9 ; Morbid obesity due to excess calories E66.01 and Parkinsonian tremor G20 [place] [address] [id number] [address] [place] [address] Nov, [place] [address] [id number] [address] [place] [address] Oct, Paranoid schizophrenia F20.0 [place] [address] [id number] [address] [place] [address] Oct, Paranoid schizophrenia F20.0 [place] [address] [id number] [address] [place] [address] Oct, Paranoid schizophrenia F20.0 and Depression with anxiety F41.8 [place] [address] [id number] [address] [place] [address] Oct, [place] [address] [id number] [address] [place] [address] Oct, Paranoid schizophrenia F20.0 and Depression with anxiety F41.8 [place] [address] [facility] [id number] [address] [place] [address] Oct, Nasal sore J34.89 [place] [address] [address] [facility] [id number] [address] [place] [address] Oct, Type 2 diabetes mellitus wit hout complication, without long-term current use of insulin E11.9 ; Depression with anxiety F41.8 ; Hypothyroidism, unspecified type E03.9 and History of lupus Z87.39 [place] [address] [id number] [address] [place] [address] Oct, [place] [address] [facility] [id number] [address] [place] [address] Oct, Type 2 diabetes mellitus wit hout [...] edema R60.9 and History of lupus Z87.39 [facility] [address] [id number] [address] [place] [address] Feb, [facility] [address] [id number] [address] [place] [address] Jan, [facility] [address] [facility] [id number] [address] [place] [address] Jan, [facility] [address] [facility] [id number] [address] [place] [address] Jan, [facility] [address] [id number] [address] [place] [address] Dec, [facility] [address] [facility] [id number] [address] [place] [address] Nov, [facility] [address] [facility] [id number] [address] [place] [address] Nov, [facility] [address] [facility] [id number] [address] [place] [address] Oct, [facility] [address] [id number] [address] [place] [address] Oct, [facility] [address] [facility] [id number] [address] [place] [address] Oct, [facility] [address] [facility] [id number] [address] [place] [address] Sep, Allergic rhinitis 477.9 [facility] [address] [facility] [id number] [address] [place] [id number] Sep, Rhinitis, allergic 477.9 [facility] [address] [id number] [address] [place] [address], [place] [address] 10 Sep, 2014 Rhinitis, allergic 477.9 [facility] [address] [id number] [address] [place] [address], [place] [address] Sep, [facility] [address] [id number] [address] [place] [address], [place] [address] August, [facility] [address] [id number] [address] [place] [address], [place] [address] August, [facility] [address] [id number] [address] [place] [address], [place] [address] August, [facility] [address] [id number] [address] [place] [address], [place] [address] 28 Jul, 2014 [facility] [address] [id number] [address] [place] [address], [place] [address] 14 Jul, 2014 [facility] [address] [id number] [address] [place] [id number] Jul, [facility] [address] [id number] [address] [place] [address], [place] [address] 16 Jun, 2014 [facility] [address] [id number] [address] [place] [id number] 16 Jun, 2014 [facility] [address] [id number] [address] [place] [address], [place] [address] Jun, [facility] [address] [id number] [address] [place] [id number] Jun, [facility] [address] [id number] [address] [place] [address], [place] [address] Jun, [facility] [address] [id number] [address] [place] [address], [place] [address] Jun, [facility] [address] [id number] [address] [place] [id number] 02 Jun, 2014 [facility] [address] [id number] [facility] [place] [address] Jun, [facility] [address] [id number] [address] [place] [address], [place] [address] May, 2014 [facility] [address] [id number] [address] [place] [address], [place] [address] May, 2014 [facility] [address] [id number] [address] [place] [address], [place] [address] May, 2014 [facility] [address] [id number] [place] [address], [place] [address] May, [facility] [address] [id number] [address] [place] [address], [place] [address] Apr, [facility] [address] [id number] [address] [place] [address], [place] [address] Mar, [facility] [address] [id number] [address] [place] [address], [place] [address] Mar, [facility] [address] [id number] [address] [place] [address], [place] [address] Mar, [facility] [address] [id number] [address] [place] [address], [place] [address] Mar, [facility] [address] [id number] [address] [place] [address], [place] [address] Mar, [facility] [address] [id number] [address] [place] [address], [place] [address] Mar, [facility] [address] [id number] [address] [place] [address], [place] [address] 05 Mar, 2014 [facility] [address] [id number] [address] [place] [address], [place] [address] Mar, [facility] [address] [id number] [address] [place] [address], [place] [address] Mar, [facility] [address] [id number] [address] [place] [address], [place] [address] Feb, [facility] [address] [id number] [address] [place] [address], [place] [address] Feb, [facility] [address] [id number] [address] [place] [address], [place] [address] 17 Feb, 2014 [facility] [address] [id number] [address] [place] [address], [place] [address] Feb, [facility] [address] [id number] [address] [place] [address], [place] [address] Feb, [facility] [address] [id number] [address] [place] [address], [place] [address] Feb, [facility] [address] [id number] [address] [place] [address], [place] [address] Feb, [facility] [address] [id number] [address] [place] [address], [place] [address] Feb, [facility] [address] [id number] [address] [place] [address], [place] [address] 23 Jan, 2014 [facility] [address] [id number] [address] [place] [address], [place] [address] 23 Jan, 2014 [facility] [address] [id number] [address] [place] [address], [place] [address] 16 Jan, 2014 [facility] [address] [id number] [address] [place] [address], [place] [address] 16 Jan, 2014 [facility] [address] [id number] [address] [place] [address], [place] [address] 15 Jan, 2014 [facility] [address] [id number] [address] [place] [address], [place] [address] 15 Jan, 2014 [facility] [address] [id number] [address] [place] [address], [place] [address] 14 Jan, 2014 [facility] [address] [id number] [address] [place] [address], [place] [address] 14 Jan, 2014 [facility] [address] [id number] [address] [place] [address], [place] [address] 14 Jan, 2014 [facility] [address] [id number] [address] [place] [address], [place] [address] 14 Jan, 2014 [facility] [address] [id number] [address] [place] [address], [place] [address] 18 Dec, 2013 [facility] [address] [id number] [address] [place] [address], [place] [address] 18 Dec, 2013 [facility] [address] [id number] [address] [place] [address], [place] [address] Dec, [facility] [address] [id number] [address] [place] [address], [place] [address] Dec, [facility] [address] [id number] [address] [place] [address], [place] [address] Nov, [facility] [address] [id number] [address] [place] [address], [place] [address] Nov, [facility] [address] [id number] [address] [place] [address], [place] [address] Nov, [facility] [address] [id number] [address] [place] [address], [place] [address] Nov, [facility] [address] [id number] [address] [place] [address], [place] [address] Nov, [facility] [address] [id number] [address] [place] [address], [place] [address] Oct, [facility] [address] [id number] [address] [place] [address], [place] [address] Oct, [facility] [address] [id number] [address] [place] [address], [place] [address] Oct, [facility] [address] [id number] [address] [place] [address], [place] [address] Oct, [facility] [address] [id number] [address] [place] [address], [place] [address] Sep, [facility] [address] [id number] [facility] [place] [address] Sep, [facility] [address] [id number] [address] [place] [address], [place] [address] Sep, [facility] [address] [id number] [address] [place] [address], [place] [address] Sep, [facility] [address] [id number] [address] [place] [address], [place] [address] Sep, [facility] [address] [id number] [address] [place] [address], [place] [address] Sep, [facility] [address] [id number] [address] [place] [address], [place] [address] Sep, [facility] [address] [id number] [address] [place] [address], [place] [address] Sep, [facility] [address] [id number] [address] [place] [address], [place] [address] August, [facility] [address] [id number] [address] [place] [address], [place] [address] August, [facility] [address] [id number] [address] [place] [address], [place] [address] August, [facility] [address] [id number] [address] [place] [address], [place] [address] August, [facility] [address] [id number] [address] [place] [address], [place] [address] August, [facility] [address] [id number] [address] [place] [address], [place] [address] August, [facility] [address] [id number] [address] [place] [address], [place] [address] August, [facility] [address] [id number] [address] [place] [address], [place] [address] Jul, [facility] [address] [id number] [facility] [place] [address] Jul, [facility] [address] [id number] [facility] [place] [address] Jul, [facility] [address] [id number] [facility] [place] [address] Jul, [facility] [address] [id number] [address] [place] [address], [place] [address] Jul, [facility] [address] [id number] [facility] [place] [address] Jul, [facility] [address] [id number] [address] [place] [address], [place] [address] Jul, [facility] [address] [id number] [address] [place] [address], [place] [address] Jul, [facility] [address] [id number] [address] [place] [address], [place] [address] Jul, [facility] [address] [id number] [address] [place] [address], [place] [address] Jul, [facility] [address] [id number] [address] [place] [address], [place] [address] Jul, [facility] [address] [id number] [address] [place] [address], [place] [address] Jul, [facility] [address] [id number] [address] [place] [address], [place] [address] Jun, [facility] [address] [id number] [address] [place] [address], [place] [address] 31 Jun, 2013 [facility] [address] [id number] [address] [place] [address], [place] [address] Jun, [facility] [address] [id number] [address] [place] [address], [place] [address] Jun, [facility] [address] [id number] [address] [place] [address], [place] [address] Jun, [facility] [address] [id number] [address] [place] [address], [place] [address] May, [facility] [address] [id number] [address] [place] [address], [place] [address] May, [facility] [address] [id number] [address] [place] [address], [place] [address] May, [facility] [address] [id number] [address] [place] [address], [place] [address] May, [facility] [address] [id number] [address] [place] [address], [place] [address] May, [facility] [address] [id number] [address] [place] [address], [place] [address] May, [facility] [address] [id number] [address] [place] [address], [place] [address] May, [facility] [address] [id number] [address] [place] [address], [place] [address] May, [facility] [address] [id number] [address] [place] [address], [place] [address] Mar, [facility] [address] [id number] [address] [place] [address], [place] [address] Mar, [facility] [address] [id number] [address] [place] [address], [place] [address] Mar, [facility] [address] [id number] [address] [place] [address], [place] [address] Mar, [facility] [address] [id number] [address] [place] [address], [place] [address] Mar, [facility] [address] [id number] [address] [place] [address], [place] [address] Mar, [facility] [address] [id number] [address] [place] [address], [place] [address] Feb, [facility] [address] [id number] [address] [place] [address], [place] [address] 15 Feb, 2013 [facility] [address] [id number] [address] [place] [address], [place] [address] Jan, [facility] [address] [id number] [address] [place] [address], [place] [address] Jan, [facility] [address] [id number] [address] [place] [address], [place] [address] Jan, [facility] [address] [id number] [address] [place] [address], [place] [address] Jan, [facility] [address] [id number] [address] [place] [address], [place] [address] Jan, [facility] [address] [id number] [address] [place] [address], [place] [address] Jan, [facility] [address] [id number] [address] [place] [address], [place] [address] Jan, [facility] [address] [id number] [address] [place] [address], [place] [address] Jan, [facility] [address] [id number] [address] [place] [address], [place] [address] Jan, [facility] [address] [id number] [address] [place] [address], [place] [address] Jan, [facility] [address] [id number] [address] [place] [address], [place] [address] Dec, [facility] [address] [id number] [address] [place] [address], [place] [address] Nov, [facility] [address] [id number] [address] [place] [address], [place] [address] Nov, [facility] [address] [id number] [address] [place] [address], [place] [address] Nov, [facility] [address] [id number] [address] [place] [address], [place] [address] Oct, [facility] [address] [id number] [address] [place] [address] Oct, [facility] [address] [id number] [address] [place] [address] August, [facility] [address] [id number] [address] [place] [address] Apr, [facility] [address] [id number] [address] [place] [address] Apr, [facility] [address] [id number] [address] [place] [address] Feb, [facility] [address] [id number] [address] [place] [address] Feb, [facility] [address] [id number] [address] [place] [address] Dec, [facility] [address] [id number] [address] [place] [address] Dec, [facility] [address] [id number] [address] [place] [address] Oct, [facility] [address] [id number] [address] [place] [address] Oct, [facility] [address] [id number] [address] [place] [address] Oct, [facility] [address] [id number] [address] [place] [address] Jul, IMMUNIZATIONS No Known Immunizations SOCIAL HISTORY [...] hospitalizations for psychosis/mental illness, last one in [place] at [facility] 4 years ago Hospitalization History broken ankle 08/2018
--- OUTSIDE RECORDS SUMMARY | 2019-07-07 04:43 | XMS REPORT ---
Author Author Alayna Hewitt Organization [facility] Address [address] [place] [address] Care Team Providers Care Concreting Supervisor Name Role Phone RODO Hewitt Unavailable PROBLEMS Type Condition ICD9-CM Code ZUM57-AS Code Onset Dates Condition S tatus SNOMED Code Problem Depression with anxiety F41.8 Active 954198104 Problem Morbid obesity due to excess calories E66.01 Active 893534803 Problem Chronic obstructive pulmonary disease, unspecified COPD ty pe J44.9 Active 89067760 Problem Paranoid schizophrenia F20.0 Active 30759079 Problem Chronic pain syndrome G89.4 Active 720955104 Problem History of lupus Z87.39 Active 312 062368 Problem Type 2 diabetes mellitus wit hout complication, without long-term current use of insulin E11.9 Active 973838279 Problem Dyslipidemia E78.5 Active 3278915 07 Problem Migraine without aura and without status migrain osus, not intractable G43.009 Active 653157372 Problem Primary insomnia F51.01 Active 397 2004 Problem Schizoaffective disorder, depressive type F25.1 Active 40238582 Problem Menopausal syndrome (hot flashes) N95.1 Active 096064488 Problem DM neuro manif type II E11.49 Active 05149558 Problem Other seasonal allergic rhinitis J30.2 Active 276689096 Problem Other allergic rhinitis J30.89 Active 218250049 Problem Gastroesophageal reflux disease, esophagitis pre sence not specified K21.9 Active 813206690 Problem Tobacco abuse Z72.0 Active 696657 000 Problem Essential hypertension I10 Active 10358805 Problem Hypothyroidism (acquired) E03.9 Acti ve 801459968 Problem COPD exacerbation J44.1 Active 19 6479675 Problem Allergic rhinitis, unspecified seasonality, unspecifie d trigger J30.9 Active 77917898 Problem Gastroesophageal reflux disease without esophagitis K21.9 Active 260476474 Problem Constipation by delayed colonic transit K59.01 Active 25536281 Problem OAB (overactive bladder) N32.81 Activ e 143669985 Problem Seasonal allergic rhinitis due to other allergic trigger J30.89 Active 426241553 Problem Seasonal allergic rhinitis due to pollen J30.1 Active 55596617 Problem 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, without long-term current use of insulin E11.610 Active 612203830 Problem Diabetic polyneuropathy associated with type 2 d iabetes mellitus E11.42 Active 852380238 Problem Cigarette nicotine dependence without complication F17.210 Active 20922791 ALLERGIES No Information ENCOUNTERS Encounter Location Date Diagnosis [facility] [address] [facility] [id number] [address] [place] [address] Dec, [facility] [address] [facility] [id number] [address] [place] [phone] Nov, [facility] [address] [place] [id number] [address] [place] [id number] Nov, [facility] [address] [place] [id number] [address] [place] [address] Nov, Schizoaffective disorder, de pressive type F25.1 [facility] [address] [facility] [id number] [address] [place] [address] Nov, Constipation by delayed colo james transit K59.01 [facility] [address] [facility] [id number] [address] [place] [address] Oct, [facility] [address] [facility] [id number] [address] [place] [address] Oct, [facility] [address] [facility] [id number] [address] [place] [phone] Oct, [facility] [address] [place] [id number] [address] [place] [address] Oct, Chronic obstructive pulmonar y disease, unspecified COPD type J44.9 [facility] [address] [facility] [id number] [address] [place] [address] Oct, [facility] [address] [place] [id number] [address] [place] [address] Sep, Paranoid schizophrenia F20.0 [facility] [address] [facility] [id number] [address] [place] [address] Sep, [facility] [address] [facility] [id number] [address] [place] [address] Sep, [facility] [address] [facility] [id number] [address] [place] [address] Sep, Encounter for immunization Z 23 [facility] [address] [facility] [id number] [address] [place] [address] Sep, [facility] [address] [facility] [id number] [address] [place] [address] Sep, Closed fracture of right ank le, sequela S82.891S ; Morbid obesity E66.01 and Heat rash L74.0 [facility] [address] [facility] [id number] [address] [place] [address] Sep, Schizoaffective disorder, de pressive type F25.1 [facility] [address] [facility] [id number] [address] [place] [phone] Sep, [facility] [address] [facility] [id number] [address] [place] [address] Sep, [facility] [address] [facility] [id number] [address] [place] [address] Sep, [facility] [address] [facility] [id number] [address] [place] [address] Sep, [facility] [address] [facility] [id number] [address] [place] [address] Sep, [facility] [address] [facility] [id number] [address] [place] [address] Sep, [facility] [address] [facility] [id number] [address] [place] [address] Sep, [facility] [address] [place] [id number] [address] [place] [address] Sep, [facility] [address] [facility] [id number] [address] [place] [address] Sep, [facility] [address] [facility] [id number] [address] [place] [address] August, Paranoid schizophrenia F20.0 [facility] [address] [place] [id number] [address] [place] [address] August, [facility] [address] [facility] [id number] [address] [place] [address] August, [facility] [address] [place] [id number] [address] [place] [address] August, [facility] [address] [place] [id number] [address] [place] [address] August, Type 2 diabetes mellitus wit hout complication, without long-term current use of insulin E11.9 ; Closed fracture of right ankle, initial encounter S82.891A ; Constipation by delayed colonic transit K59.01 ; Osteoporosis with pathological fracture, initial encounter M80.00XA ; Encounter for immunization Z23 and Morbid obesity E66.01 [facility] [address] [place] [address] August, [facility] [address] [place] [address] August, [facility] [address] [place] [id number] [address] [place] [address] August, Acquired deformity of muscul oskeletal system, unspecified M95.9 [facility] [address] [place] [id number] [address] [place] [phone] August, Paranoid schizophrenia F20.0 [facility] [address] [id number] [address] [place] [address] August, [facility] [address] [place] [id number] [address] [place] [address] Jul, [place] [address] [place] [address] Jul, Diabetic polyneuropathy asso ciated with type 2 diabetes mellitus E11.42 ; Paranoid schizophrenia F20.0 ; Preoperative clearance Z01.818 and Morbid obesity E66.01 [place] [address] [place] [id number] [address] [place] [address] Jul, Paranoid schizophrenia F20.0 [place] [address] [place] [id number] [place] [address] Jul, [place] [address] [address] Jul, [place] [address] [place] [id number] [place] [address] Jul, Cigarette nicotine dependenc e without complication F17.210 [place] [address] [address] Jul, Type 2 diabetes mellitus wit hout complication, without long-term current use of insulin E11.9 and Hypothyroidism (acquired) E03.9 [place] [address] [address] Jul, Encounter for Medicare annua l wellness exam Z00.00 ; Morbid obesity due to excess calories E66.01 ; Diabetic polyneuropathy associated with type 2 diabetes mellitus E11.42 ; Chronic obstructive pulmonary disease, unspecified COPD type J44.9 ; Schizoaffective disorder, depressive type F25.1 ; Hypothyroidism (acquired) E03.9 and Morbid obesity E66.01 [place] [address] [place] [id number] [address] [place] [address] Jun, Gastroesophageal reflux dise ase without esophagitis K21.9 [place] [address] [place] [id number] [address] [place] [address] Jun, Paranoid schizophrenia F20.0 [place] [address] [place] [id number] [place] [address] Jun, Schizoaffective disorder, de pressive type F25.1 [facility] [address] [facility] [id number] [address] [place] [address] Jun, [facility] [address] [place] [id number] [address] [place] [address] Jun, Schizoaffective disorder, de pressive type F25.1 [facility] [address] [facility] [id number] [address] [place] [address] Jun, Cigarette nicotine dependenc e without complication F17.210 [place] [address] [facility] [id number] [address] [place] [address] Jun, Type 2 diabetes mellitus wit hout complication, without long-term current use of insulin E11.9 [place] [address] [place] [id number] [address] [place] [address] Jun, [place] [address] [place] [id number] [address] [place] [address] Jun, [facility] [address] [place] [id number] [address] [place] [address] Jun, [place] [address] [place] [id number] [address] [place] [phone] Jun, [facility] [address] [place] [id number] [address] [place] [address] Jun, [facility] [address] [place] [id number] [address] [place] [address] Jun, Paranoid schizophrenia F20.0 ; Type 2 diabetes mellitus without complication, without long-term current use of insulin E11.9 ; Hypothyroidism (acquired) E03.9 and Morbid obesity E66.01 [facility] [address] [facility] [id number] [address] [place] [address] May, Paranoid schizophrenia F20.0 [place] [address] [place] [id number] [address] [place] [address] May, Hypothyroidism (acquired) E0 3.9 and Dyslipidemia E78.5 [facility] [address] [place] [id number] [address] [place] [address] May, Cigarette nicotine dependenc e without complication F17.210 [facility] [address] [facility] [id number] [address] [place] [address] 18 May, 2018 [facility] [address] [address] 14 May, 2018 Type 2 diabetes mellitus wit hout complication, without long-term current use of insulin E11.9 ; Essential hypertension I10 ; Hypothyroidism (acquired) E03.9 and Dyslipidemia E78.5 [place] [address] [place] [id number] [address] [place] [address] May, [facility] [address] [place] [id number] [place] [address] May, Schizoaffective disorder, de pressive type F25.1 [facility] [address] [place] [address] May, Paranoid schizophrenia F20.0 [place] [address] [place] [id number] [address] [place] [address] 07 May, 2018 [facility] [address] [place] [address] May, 19 [facility] [address] [place] [id number] [address] [place] [address] May, [facility] [address] [place] [id number] [address] [place] [address] May, Type 2 diabetes mellitus wit hout complication, without long-term current use of insulin E11.9 ; Essential hypertension I10 ; Hypothyroidism (acquired) E03.9 and Dyslipidemia E78.5 [facility] [address] [place] [id number] [address] [place] [address] May, [facility] [address] [place] [id number] [place] [address] 04 May, 2018 Acute nasopharyngitis J00 [facility] [address] [place] [id number] [place] [address] 04 May, 2018 Allergic rhinitis, unspecifi ed seasonality, unspecified trigger J30.9 [facility] [address] [place] [id number] [place] [address] May, [facility] [address] [address] Apr, Schizoaffective disorder, de pressive type F25.1 [place] [address] [address] Apr, [facility] [address] [address] Apr, Cigarette nicotine dependenc e without complication F17.210 [facility] [address] [address] Apr, [facility] [address] [address] Apr, Cigarette nicotine dependenc e without complication F17.210 [facility] [address] [address] 10 Apr, 2018 [facility] [address] [address] Apr, Migraine without aura and wi thout status migrainosus, not intractable G43.009 [facility] [address] [place] [id number] [address] [place] [address] Apr, Migraine without aura and wi thout status migrainosus, not intractable G43.009 [facility] [address] [place] [id number] [address] [place] [address] Mar, Schizoaffective disorder, de pressive type F25.1 ; BMI 45.0-49.9, adult Z68.42 and BMI 40.0-44.9, adult Z68.41 [facility] [address] [facility] [id number] [address] [place] [address] Mar, Primary insomnia F51.01 [facility] [address] [facility] [id number] [address] [place] [address] Mar, [facility] [address] [place] [id number] [address] [place] [address] Feb, Primary insomnia F51.01 [facility] [address] [facility] [id number] [address] [place] [address] Feb, [facility] [address] [place] [id number] [place] [address] Jan, Schizoaffective disorder, de pressive type F25.1 and BMI 45.0-49.9, adult Z68.42 [place] [address] [place] [id number] [address] [place] [address] Jan, [facility] [address] [place] [id number] [address] [place] [address] Jan, 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, without long-term current use of insulin E11.610 ; Menopausal syndrome (hot flashes) N95.1 and BMI 40.0-44.9, adult Z68.41 [place] [address] [place] [id number] [address] [place] [address] Jan, Paranoid schizophrenia F20.0 [facility] [address] [place] [id number] [address] [place] [address] Jan, [facility] [address] [place] [id number] [address] [place] [address] Jan, Schizoaffective disorder, de pressive type F25.1 [facility] [address] [place] [id number] [address] [place] [address] Jan, [facility] [address] [place] [id number] [address] [place] [address] 02 Jan, 2018 Chronic obstructive pulmonar y disease, unspecified COPD type J44.9 ; BMI 45.0-49.9, adult Z68.42 ; Type 2 diabetes mellitus without complication, without long-term current use of insulin E11.9 ; Hypothyroidism (acquired) E03.9 ; Encounter for immunization Z23 ; Gastroesophageal reflux disease without esophagitis K21.9 ; Primary insomnia F51.01 and Acute nasopharyngitis J00 [facility] [address] [facility] [id number] [address] [place] [address] 27 Dec, 2017 [facility] [address] [place] [id number] [address] [place] [address] 21 Dec, 2017 Schizoaffective disorder, de pressive type F25.1 and BMI 45.0-49.9, adult Z68.42 [facility] [address] [place] [address] Dec, [facility] [address] [place] [address] 18 Dec, 2017 [facility] [address] [place] [id number] [address] [place] [address] 18 Dec, 2017 Acute non-recurrent frontal sinusitis J01.10 [facility] [address] [place] [id number] [address] [place] [address] 18 Dec, 2017 Acute non-recurrent frontal sinusitis J01.10 ; Weakness of left leg R29.898 ; At high risk for falls Z91.81 and BMI 45.0-49.9, adult Z68.42 [facility] [address] [facility] [id number] [address] [place] [address] 17 Dec, 2017 [facility] [address] [place] [id number] [address] [place] [address] 17 Dec, 2017 [facility] [address] [place] [id number] [address] [place] [address] 10 Dec, 2017 Schizoaffective disorder, de pressive type F25.1 [facility] [address] [place] [id number] [address] [place] [address] Dec, Acute nasopharyngitis J00 [facility] [address] [place] [id number] [address] [place] [address] Dec, Schizoaffective disorder, de pressive type F25.1 [facility] [address] [place] [id number] [address] [place] [address] Dec, [place] [address] [address] Nov, Schizoaffective disorder, de pressive type F25.1 and BMI 45.0-49.9, adult Z68.42 [place] [address] [place] [id number] [place] [address] Nov, [place] [address] [address] Nov, [place] [address] [address] Nov, Schizoaffective disorder, de pressive type F25.1 [place] [address] [address] Nov, Well woman exam Z01.419 ; BM I 45.0-49.9, adult Z68.42 ; Screening breast examination Z12.31 and Dietary counseling and surveillance Z71.3 [place] [address] [place] [id number] [address] [place] [address] Nov, Paranoid schizophrenia F20.0 [place] [address] [place] [id number] [address] [place] [address] Nov, Gastroesophageal reflux dise ase, esophagitis presence not specified K21.9 [place] [address] [place] [id number] [address] [place] [address] Oct, Paranoid schizophrenia F20.0 [facility] [address] [id number] [place] [address] Oct, Chronic pain syndrome G89.4 and Schizoaf fective disorder, depressive type F25.1 [place] [address] [place] [id number] [address] [place] [address] Oct, Chronic pain syndrome G89.4 and Schizoaffective disorder, depressive type F25.1 [facility] [address] [place] [id number] [address] [place] [address] 16 Oct, 2017 Type 2 diabetes mellitus wit hout complication, without long-term current use of insulin E11.9 [place] [id number] [place] [id number] [address] [place] [address] Oct, Essential hypertension I10 a nd DM neuro manif type II E11.49 [place] [address] [place] [id number] [place] [address] Oct, [place] [address] [address] Oct, Schizoaffective disorder, de pressive type F25.1 and BMI 45.0-49.9, adult Z68.42 [place] [address] [address] Oct, [place] [address] [place] [id number] [place] [address] Oct, Paranoid schizophrenia F20.0 [place] [address] [place] [id number] [place] [address] Oct, 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, without long-term current use of insulin E11.610 ; Essential hypertension I10 ; Hypothyroidism (acquired) E03.9 ; Chronic obstructive pulmonary disease, unspecified COPD type J44.9 and Diabetic polyneuropathy associated with type 2 diabetes mellitus E11.42 [facility] [address] [place] [id number] [address] [place] [address] Sep, Paranoid schizophrenia F20.0 [place] [address] [place] [id number] [address] [place] [address] Sep, Paranoid schizophrenia F20.0 and BMI 45.0-49.9, adult Z68.42 [facility] [address] [facility] [id number] [address] [place] [address] Sep, Schizoaffective disorder, de pressive type F25.1 [facility] [address] [id number] [address] [place] [address] Sep, [facility] [address] [facility] [id number] [address] [place] [address] Sep, Paranoid schizophrenia F20.0 [facility] [address] [facility] [id number] [address] [place] [address] Sep, [facility] [address] [place] [id number] [address] [place] [address] Sep, Hypothyroidism (acquired) E0 3.9 [facility] [address] [place] [id number] [address] [place] [address] Sep, [facility] [address] [place] [id number] [address] [place] [address] August, Schizoaffective disorder, de pressive type F25.1 [facility] [address] [facility] [id number] [address] [place] [address] August, [facility] [address] [facility] [id number] [address] [place] [phone] August, [facility] [address] [facility] [id number] [address] [place] [id number] August, [facility] [address] [facility] [id number] [address] [place] [phone] August, Paranoid schizophrenia F20.0 [facility] [address] [facility] [id number] [address] [place] [id number] August, History of lupus Z87.39 and Chronic pain syndrome G89.4 [facility] [address] [place] [id number] [address] [place] [phone] August, [facility] [address] [id number] August, Seasonal allergic rhinitis, unspecified trigger J30.2 and BMI 45.0-49.9, adult Z68.42 [place] [address] [address] Jul, Schizoaffective disorder, de pressive type F25.1 [place] [address] [id number] Jul, [place] [address] [phone] Jul, Hypothyroidism (acquired) E0 3.9 [place] [address] [id number] Jul, Chronic obstructive pulmonar y disease, unspecified COPD type J44.9 and Type 2 diabetes mellitus without complication, without long-term current use of insulin E11.9 [place] [address] [address] Jul, Paranoid schizophrenia F20.0 [place] [address] [id number] Jun, Hypothyroidism (acquired) E0 3.9 and Seasonal allergic rhinitis due to pollen J30.1 [facility] [address] [address] Jun, Shortness of breath at rest R06.02 ; COPD exacerbation J44.1 and BMI 45.0-49.9, adult Z68.42 [place] [address] [address] Jun, [place] [address] [address] Jun, Paranoid schizophrenia F20.0 ; Depression with anxiety F41.8 and BMI 45.0-49.9, adult Z68.42 [facility] [address] [facility] [id number] [address] [place] [phone] Jun, Schizoaffective disorder, de pressive type F25.1 [facility] [address] [id number] [address] [place] [address] [id number] Jun, Dental caries K02.9 [facility] [address] [facility] [id number] [address] [place] [phone] Jun, Paranoid schizophrenia F20.0 [facility] [address] [facility] [id number] [address] [place] [address] May, Migraine without aura and wi thout status migrainosus, not intractable G43.009 ; DM neuro manif type II E11.49 and Type 2 diabetes mellitus without complication, without long-term current use of insulin E11.9 [facility] [address] [facility] [id number] [address] [place] [phone] May, Migraine without aura and wi thout status migrainosus, not intractable G43.009 [facility] [address] [facility] [id number] [address] [place] [phone] May, Depression with anxiety F41. 8 [facility] [address] [id number] [address] [place] [address] [phone] May, [facility] [address] [facility] [id number] [address] [place] [phone] May, [facility] [address] [facility] [id number] [address] [place] [phone] May, [facility] [address] [facility] [id number] [address] [place] [address] May, Hypothyroidism (acquired) E0 3.9 [facility] [address] [facility] [id number] [address] [place] [phone] 08 May, 2017 Paranoid schizophrenia F20.0 [facility] [address] [facility] [id number] [address] [place] [id number] 08 May, 2017 Type 2 diabetes mellitus [...] N32.81 and Controlled substance agreement signed Z79.899 [place] [address] [address] May, Controlled substance agreeme nt signed Z79.899 [place] [address] [address] Apr, [facility] [id number] [place] [id number] Apr, Dental examination Z01.20 [place] [address] [address] Apr, Paranoid schizophrenia F20.0 [place] [address] [address] Apr, Hypertension, unspecified ty pe I10 [place] [address] [address] Apr, Paranoid schizophrenia F20.0 [place] [id number] [address] Apr, [place] [address] [address] Apr, Tobacco abuse Z72.0 [place] [address] [address] Apr, [facility] [address] [facility] [id number] [address] [place] [address] Mar, [facility] [address] [place] [id number] [place] [phone] Mar, Paranoid schizophrenia F20.0 and BMI 45.0-49.9, adult Z68.42 [facility] [address] [place] [id number] [address] [place] [phone] Mar, Schizoaffective disorder, de pressive type F25.1 [facility] [address] [place] [id number] [place] [phone] Mar, [facility] [address] [place] [id number] [place] [address] Mar, Hypothyroidism, unspecified type E03.9 [facility] [address] [place] [id number] [place] [phone] Mar, Schizoaffective disorder, de pressive type F25.1 [facility] [address] [facility] [id number] [address] [place] [phone] Feb, Gastroenteritis K52.9 and BM I 45.0-49.9, adult Z68.42 [facility] [address] [place] [id number] [address] [place] [address] Feb, [facility] [address] [place] [id number] [address] [place] [phone] Feb, [facility] [address] [place] [id number] [address] [place] [phone] Feb, [facility] [address] [place] [id number] [place] [phone] Feb, [facility] [address] [place] [id number] [address] [place] [address] Feb, Paranoid schizophrenia F20.0 [facility] [address] [place] [id number] [place] [address] Feb, Gastroesophageal reflux dise ase without esophagitis K21.9 ; Other seasonal allergic rhinitis J30.2 ; Other allergic rhinitis J30.89 ; Tobacco abuse Z72.0 and BMI 40.0-44.9, adult Z68.41 [place] [address] [place] [id number] [place] [address] Feb, Onychomycosis B35.1 ; Callus of foot L84 and DM neuro manif type II E11.49 [place] [address] [place] [id number] [place] [phone] Jan, Chronic allergic rhinitis J3 0.9 [place] [address] [place] [id number] [place] [address] Jan, [place] [address] [place] [id number] [place] [address] Jan, Schizoaffective disorder, de pressive type F25.1 [place] [address] [address] Jan, [facility] [address] [address] Jan, Sore throat J02.9 and Season al allergic rhinitis due to other allergic trigger J30.89 [place] [address] [address] Jan, [facility] [address] [address] Jan, [facility] [address] [place] [id number] [place] [address] Jan, Chronic allergic rhinitis J3 0.9 [place] [address] [place] [id number] [place] [address] Dec, Paranoid schizophrenia F20.0 ; Primary insomnia F51.01 and Schizoaffective disorder, depressive type F25.1 [place] [address] [address] Dec, Chronic pain syndrome G89.4 ; Cervicalgia of rpeejpgz-pwlugkd-ghlcb region M54.2 ; Menopausal syndrome (hot flashes) N95.1 and Encounter for immunization Z23 [facility] [address] [facility] [id number] [address] [place] [address] Dec, [facility] [address] [facility] [id number] [address] [place] [address] Dec, [facility] [address] [facility] [id number] [address] [place] [phone] Dec, Paranoid schizophrenia F20.0 [place] [address] [facility] [id number] [address] [place] [address] Dec, Schizoaffective disorder, de pressive type F25.1 [facility] [address] [facility] [id number] [address] [place] [address] Nov, Hypothyroidism, unspecified type E03.9 [facility] [address] [facility] [id number] [address] [place] [address] Nov, Acute seasonal allergic rhin itis due to other allergen J30.89 [facility] [address] [facility] [id number] [address] [place] [address] Nov, [facility] [address] [facility] [id number] [address] [place] [address] Nov, Hypothyroidism, unspecified type E03.9 and Other elevated white blood cell (WBC) count D72.828 [facility] [address] [facility] [id number] [address] [place] [address] Nov, Schizoaffective disorder, de pressive type F25.1 [facility] [address] [facility] [id number] [address] [place] [address] Nov, Paranoid schizophrenia F20.0 [facility] [address] [facility] [id number] [address] [place] [address] Nov, Type 2 diabetes mellitus wit hout complication, without long-term current use of insulin E11.9 ; Morbid obesity due to excess calories E66.01 and Chronic pain syndrome G89.4 [place] [address] [facility] [id number] [address] [place] [address] Oct, Paranoid schizophrenia F20.0 [place] [address] [place] [id number] [address] [place] [address] Oct, [place] [address] [place] [id number] [place] [address] Oct, Schizoaffective disorder, de pressive type F25.1 [place] [address] [place] [id number] [place] [address] Oct, Hypothyroidism, unspecified type E03.9 and Other elevated white blood cell (WBC) count D72.828 [place] [address] [address] Oct, Morbid obesity due to excess calories E66.01 ; Chronic obstructive pulmonary disease, unspecified COPD type J44.9 ; History of lupus Z87.39 ; Hypothyroidism, unspecified type E03.9 ; Gastroesophageal reflux disease without esophagitis K21.9 ; Primary insomnia F51.01 and Chronic pain syndrome G89.4 [place] [address] [place] [id number] [place] [address] Sep, [place] [address] [place] [id number] [place] [address] Sep, [place] [address] [facility] [id number] [address] [place] [address] Sep, [place] [address] [place] [id number] [address] [place] [address] Sep, Paranoid schizophrenia F20.0 [place] [address] [place] [id number] [address] [place] [address] Sep, [place] [address] [place] [id number] [address] [place] [address] Sep, Paranoid schizophrenia F20.0 [facility] [address] [facility] [id number] [address] [place] [address] Sep, [facility] [address] [facility] [id number] [address] [place] [address] August, Paranoid schizophrenia F20.0 [facility] [address] [facility] [id number] [address] [place] [address] Jul, [facility] [address] [facility] [id number] [address] [place] [address] Jul, Type 2 diabetes mellitus wit hout complication, without long-term current use of insulin E11.9 ; Morbid obesity due to excess calories E66.01 ; Depression with anxiety F41.8 ; Hypothyroidism, unspecified type E03.9 ; Seasonal allergic rhinitis due to other allergic trigger J30.89 ; Pain, dental K08.89 and Gastroesophageal reflux disease without esophagitis K21.9 [facility] [address] [facility] [id number] [address] [place] [address] [id number] Jul, Dental examination Z01.20 [facility] [address] [facility] [id number] [address] [place] [address] 07 Jul, 2016 Paranoid schizophrenia F20.0 [facility] [address] [facility] [id number] [address] [place] [phone] 13 Jun, 2016 Paranoid schizophrenia F20.0 and Depression with anxiety F41.8 [place] [address] [facility] [id number] [address] [place] [address] Jun, Paranoid schizophrenia F20.0 and Depression with anxiety F41.8 [facility] [address] [facility] [id number] [address] [place] [phone] Jun, [facility] [address] [facility] [id number] [address] [place] [phone] Jun, [facility] [address] [facility] [id number] [address] [place] [address] Jun, Seasonal allergic rhinitis d ue to other allergic trigger J30.89 [facility] [address] [facility] [id number] [address] [place] [address] 25 May, 2016 Sore throat J02.9 ; Other vi ral agents as the cause of diseases classified elsewhere B97.89 and Acute upper respiratory infection, unspecified J06.9 [facility] [address] [facility] [id number] [address] [place] [address] 08 May, 2016 Paranoid schizophrenia F20.0 and Depression with anxiety F41.8 [place] [address] [facility] [id number] [address] [place] [address] Apr, Other seasonal allergic rhin itis J30.2 [place] [address] [facility] [id number] [address] [place] [id number] 11 Apr, 2016 Paranoid schizophrenia F20.0 and Depression with anxiety F41.8 [facility] [address] [place] [id number] [address] [place] [address] 07 Apr, 2016 Bronchitis J40 and Sore thro at J02.9 [place] [id number] [facility] [id number] [address] [place] [address] 03 Apr, 2016 Type 2 diabetes mellitus wit hout complication, without long-term current use of insulin E11.9 [facility] [address] [place] [id number] [address] [place] [id number] Apr, Bronchitis J40 [place] [address] [place] [id number] [address] [place] [id number] Apr, [place] [address] [facility] [id number] [address] [place] [id number] Apr, [place] [address] [place] [id number] [address] [place] [id number] Mar, Type 2 diabetes mellitus wit hout [...] R60.9 and Other seasonal allergic rhinitis J30.2 [facility] [address] [id number] [address] [place] [address] Mar, Paranoid schizophrenia F20.0 and Depression with anxiety F41.8 [facility] [address] [id number] [address] [place] [phone] Feb, [facility] [address] [id number] [address] [place] [address] Feb, [place] [address] [facility] [id number] [address] [place] [phone] Feb, [place] [address] [place] [id number] [address] [place] [address] Feb, [place] [address] [place] [id number] [address] [place] [phone] Feb, Type 2 diabetes mellitus wit hout complication, without long-term current use of insulin E11.9 ; ARIAS on CPAP G47.33 and Preoperative evaluation to rule out surgical contraindication Z01.818 [place] [address] [facility] [id number] [address] [place] [address] Feb, Paranoid schizophrenia F20.0 and Depression with anxiety F41.8 [place] [address] [id number] [address] [place] [id number] Jan, [place] [address] [id number] [address] [place] [address] Jan, Paranoid schizophrenia F20.0 and Depression with anxiety F41.8 [facility] [address] [facility] [id number] [address] [place] [id number] 17 Jan, 2016 [facility] [address] [facility] [id number] [address] [place] [id number] Jan, Muscle strain T14.8 [facility] [address] [id number] [address] [place] [id number] Jan, Paranoid schizophrenia F20.0 [facility] [address] [id number] [address] [place] [phone] Jan, [facility] [address] [id number] [address] [place] [address] Jan, Paranoid schizophrenia F20.0 and Depression with anxiety F41.8 [facility] [address] [id number] [address] [place] [phone] Jan, [facility] [address] [id number] [address] [place] [address] Jan, [facility] [address] [id number] [address] [place] [id number] 28 Dec, 2015 [facility] [address] [id number] [address] [place] [id number] 23 Dec, 2015 Paranoid schizophrenia F20.0 [facility] [address] [id number] [address] [place] [address] 16 Dec, 2015 Paranoid schizophrenia F20.0 and Depression with anxiety F41.8 [facility] [address] [id number] [address] [place] [address] Nov, [facility] [address] [id number] [address] [place] [phone] Nov, Paranoid schizophrenia F20.0 [facility] [address] [id number] [address] [place] [id number] Nov, Paranoid schizophrenia F20.0 and Depression with anxiety F41.8 [facility] [address] [id number] [address] [place] [id number] 05 Nov, 2016 Type 2 diabetes mellitus wit hout complication, without long-term current use of insulin E11.9 ; Paranoid schizophrenia F20.0 ; Chronic obstructive pulmonary disease, unspecified COPD type J44.9 ; Morbid obesity due to excess calories E66.01 and Parkinsonian tremor G20 [place] [address] [facility] [id number] [address] [place] [address] Nov, [place] [address] [facility] [id number] [address] [place] [id number] Oct, Paranoid schizophrenia F20.0 [place] [address] [facility] [id number] [address] [place] [phone] Oct, Paranoid schizophrenia F20.0 [place] [address] [facility] [id number] [address] [place] [phone] Oct, Paranoid schizophrenia F20.0 and Depression with anxiety F41.8 [place] [address] [facility] [id number] [address] [place] [phone] Oct, [place] [address] [place] [id number] [place] [phone] Oct, Paranoid schizophrenia F20.0 and Depression with anxiety F41.8 [place] [address] [facility] [id number] [address] [place] [address] Oct, Nasal sore J34.89 [place] [address] [facility] [id number] [address] [place] [address] Oct, Type 2 diabetes mellitus wit hout complication, without long-term current use of insulin E11.9 ; Depression with anxiety F41.8 ; Hypothyroidism, unspecified type E03.9 and History of lupus Z87.39 [place] [address] [place] [id number] [address] [place] [id number] Oct, [place] [address] [facility] [id number] [address] [place] [address] Oct, Type 2 diabetes mellitus wit hout [...] R60.9 and History of lupus Z87.39 [facility] [address] [id number] [address] [place] [id number] Feb, [facility] [address] [id number] [address] [place] [phone] Jan, [facility] [address] [id number] [address] [place] [address] Jan, [facility] [address] [id number] [address] [place] [phone] Jan, [facility] [address] [id number] [address] [place] [phone] Dec, [facility] [address] [id number] [address] [place] [phone] Nov, [facility] [address] [id number] [address] [place] [phone] Nov, [facility] [address] [id number] [address] [place] [phone] Oct, [facility] [address] [id number] [address] [place] [phone] Oct, [facility] [address] [id number] [address] [place] [phone] Oct, [facility] [address] [facility] [id number] [address] [place] [address] Sep, Allergic rhinitis 477.9 [facility] [address] [facility] [id number] [address] [place] [phone] Sep, Rhinitis, allergic 477.9 [facility] [address] [facility] [id number] [address] [place] [address] Sep, Rhinitis, allergic 477.9 [facility] [address] [id number] [address] [place] [address], [place] [address] Sep, [facility] [address] [id number] [address] [place] [address], [place] [address] August, [facility] [address] [id number] [address] [place] [address], [place] [address] August, [facility] [address] [id number] [address] [place] [address], [place] [address] August, [facility] [address] [id number] [address] [place] [address], [place] [address] Jul, [facility] [address] [id number] [address] [place] [address], [place] [address] 14 Jul, 2014 [facility] [address] [id number] [address] [place] [address], [place] [address] Jul, [facility] [address] [id number] [address] [place] [address], [place] [address] 16 Jun, 2014 [facility] [address] [id number] [address] [place] [address], [place] [address] 16 Jun, 2014 [facility] [address] [id number] [address] [place] [address], [place] [phone] Jun, [facility] [address] [id number] [address] [place] [address], [place] [id number] Jun, [facility] [address] [id number] [address] [place] [address], [place] [id number] Jun, [facility] [address] [id number] [address] [place] [address], [place] [id number] Jun, [facility] [address] [id number] [address] [place] [address], [place] [id number] 02 Jun, 2014 [facility] [address] [id number] [address] [place] [address], [place] [id number] 02 Jun, 2014 [facility] [address] [id number] [address] [place] [address], [place] [id number] May, 2014 [facility] [address] [id number] [address] [place] [address], [place] [id number] May, 2014 [facility] [address] [id number] [address] [place] [address], [place] [id number] May, 2014 [facility] [address] [id number] [address] [place] [address], [place] [id number] May, [facility] [address] [id number] [address] [place] [address], [place] [id number] Apr, [facility] [address] [id number] [address] [place] [address], [place] [id number] Mar, [facility] [address] [id number] [address] [place] [address], [place] [id number] Mar, [facility] [address] [id number] [address] [place] [address], [place] [id number] Mar, [facility] [address] [id number] [address] [place] [address], [place] [id number] Mar, [facility] [address] [id number] [address] [place] [address], [place] [id number] Mar, [facility] [address] [id number] [address] [place] [address], [place] [id number] Mar, [facility] [address] [id number] [address] [place] [address], [place] [id number] Mar, [facility] [address] [id number] [address] [place] [address], [place] [id number] Mar, [facility] [address] [id number] [address] [place] [address], [place] [id number] Mar, [facility] [address] [id number] [address] [place] [address], [place] [id number] Feb, [facility] [address] [id number] [address] [place] [address], [place] [id number] Feb, [facility] [address] [id number] [address] [place] [address], [place] [id number] 17 Feb, 2014 [facility] [address] [id number] [address] [place] [address], [place] [id number] 17 Feb, 2014 [facility] [address] [id number] [address] [place] [address], [place] [id number] 14 Feb, 2014 [facility] [address] [id number] [address] [place] [address], [place] [id number] 14 Feb, 2014 [facility] [address] [id number] [address] [place] [address], [place] [address] Feb, [facility] [address] [id number] [address] [place] [address], [place] [address] Feb, [facility] [address] [id number] [address] [place] [address], [place] [id number] 23 Jan, 2014 [facility] [address] [id number] [address] [place] [address], [place] [id number] 23 Jan, 2014 [facility] [address] [id number] [address] [place] [address], [place] [address] 16 Jan, 2014 [facility] [address] [id number] [address] [place] [address], [place] [id number] 16 Jan, 2014 [facility] [address] [id number] [address] [place] [address], [place] [address] 15 Jan, 2014 [facility] [address] [id number] [address] [place] [address], [place] [address] 15 Jan, 2014 [facility] [address] [id number] [address] [place] [address], [place] [address] 14 Jan, 2014 [facility] [address] [id number] [address] [place] [address], [place] [address] 14 Jan, 2014 [facility] [address] [id number] [address] [place] [address], [place] [address] 14 Jan, 2014 [facility] [address] [id number] [address] [place] [address], [place] [address] Jan, [facility] [address] [id number] [facility] [address] 18 Dec, 2013 [facility] [address] [id number] [address] [place] [address], [place] [address] Dec, [facility] [address] [id number] [address] [place] [address], [place] [address] Dec, [facility] [address] [id number] [address] [place] [address], [place] [address] Dec, [facility] [address] [id number] [address] [place] [address], [place] [address] Nov, [facility] [address] [id number] [address] [place] [address], [place] [address] Nov, [facility] [address] [id number] [address] [place] [address], [place] [address] Nov, [facility] [address] [id number] [address] [place] [address], [place] [address] Nov, [facility] [address] [id number] [address] [place] [address], [place] [address] Nov, [facility] [address] [id number] [address] [place] [address], [place] [address] Oct, [facility] [address] [id number] [address] [place] [address], [place] [address] Oct, [facility] [address] [id number] [address] [place] [address], [place] [address] Oct, [facility] [address] [id number] [address] [place] [address], [place] [address] Oct, [facility] [address] [id number] [address] [place] [address], [place] [address] Sep, [facility] [address] [id number] [address] [place] [address], [place] [address] Sep, [facility] [address] [id number] [address] [place] [address], [place] [address] Sep, [facility] [address] [id number] [address] [place] [address], [place] [address] Sep, [facility] [address] [id number] [address] [place] [address], [place] [address] Sep, [facility] [address] [id number] [address] [place] [address], [place] [address] Sep, [facility] [address] [id number] [address] [place] [address], [place] [address] Sep, [facility] [address] [id number] [address] [place] [address], [place] [address] Sep, [facility] [address] [id number] [address] [place] [address], [place] [address] August, [facility] [address] [id number] [address] [place] [address], [place] [address] August, [facility] [address] [id number] [address] [place] [address], [place] [address] August, [facility] [address] [id number] [address] [place] [address], [place] [address] August, [facility] [address] [id number] [address] [place] [address], [place] [address] August, [facility] [address] [id number] [address] [place] [address], [place] [address] August, [facility] [address] [id number] [address] [place] [address], [place] [address] August, [facility] [address] [id number] [address] [place] [address], [place] [address] Jul, [facility] [address] [id number] [address] [place] [address], [place] [address] Jul, [facility] [address] [id number] [address] [place] [address], [place] [address] Jul, [facility] [address] [id number] [facility] [place] [address] Jul, [facility] [address] [id number] [facility] [place] [address] Jul, [facility] [address] [id number] [facility] [place] [address] Jul, [facility] [address] [id number] [address] [place] [address], [place] [address] Jul, [facility] [address] [id number] [address] [place] [address], [place] [address] Jul, [facility] [address] [id number] [address] [place] [address], [place] [address] Jul, [facility] [address] [id number] [address] [place] [address], [place] [address] Jul, [facility] [address] [id number] [address] [place] [address], [place] [address] Jul, [facility] [address] [id number] [address] [place] [address], [place] [address] Jul, [facility] [address] [id number] [address] [place] [address], [place] [address] Jun, [facility] [address] [id number] [address] [place] [address], [place] [address] Jun, [facility] [address] [id number] [address] [place] [address], [place] [address] Jun, [facility] [address] [id number] [address] [place] [address], [place] [address] Jun, [facility] [address] [id number] [address] [place] [address], [place] [address] Jun, [facility] [address] [id number] [address] [place] [address], [place] [address] May, [facility] [address] [id number] [address] [place] [address], [place] [address] May, 2013 [facility] [address] [id number] [address] [place] [address], [place] [address] May, 2013 [facility] [address] [id number] [address] [place] [address], [place] [address] May, 2013 [facility] [address] [id number] [address] [place] [address], [place] [address] May, 2013 [facility] [address] [id number] [address] [place] [address], [place] [address] May, 2013 [facility] [address] [id number] [address] [place] [address], [place] [address] May, [facility] [address] [id number] [address] [place] [address], [place] [address] May, [facility] [address] [id number] [address] [place] [address], [place] [address] Mar, [facility] [address] [id number] [address] [place] [address], [place] [address] Mar, [facility] [address] [id number] [address] [place] [address], [place] [address] Mar, [facility] [address] [id number] [address] [place] [address], [place] [address] Mar, [facility] [address] [id number] [address] [place] [address], [place] [address] Mar, [facility] [address] [id number] [address] [place] [address], [place] [address] Mar, [facility] [address] [id number] [address] [place] [address], [place] [address] Feb, [facility] [address] [id number] [address] [place] [address], [place] [address] Feb, [facility] [address] [id number] [address] [place] [address], [place] [address] Jan, [facility] [address] [id number] [address] [place] [address], [place] [address] Jan, [facility] [address] [id number] [address] [place] [address], [place] [address] Jan, [facility] [address] [id number] [address] [place] [address], [place] [address] Jan, [facility] [address] [id number] [address] [place] [address], [place] [address] Jan, [facility] [address] [id number] [address] [place] [address], [place] [address] Jan, [facility] [address] [id number] [address] [place] [address], [place] [address] Jan, [facility] [address] [id number] [address] [place] [address], [place] [address] Jan, [facility] [address] [id number] [address] [place] [address], [place] [address] Jan, [facility] [address] [id number] [address] [place] [address], [place] [address] Jan, [facility] [address] [id number] [address] [place] [address], [place] [address] Dec, [facility] [address] [id number] [address] [place] [address], [place] [address] Nov, [facility] [address] [id number] [address] [place] [address], [place] [address] Nov, [facility] [address] [id number] [address] [place] [address], [place] [address] Nov, [facility] [address] [id number] [address] [place] [address], [place] [address] Oct, [facility] [address] [id number] [address] [place] [address], [place] [address] Oct, [facility] [address] [id number] [address] [place] [address], [place] [address] August, [facility] [address] [id number] [address] [place] [id number] Apr, [facility] [address] [id number] [address] [place] [address] Apr, [facility] [address] [id number] [address] [place] [address] Feb, [facility] [address] [id number] [address] [place] [address] Feb, [facility] [address] [id number] [address] [place] [address] Dec, [facility] [address] [id number] [address] [place] [address] Dec, [facility] [address] [facility] [id number] [address] [place] [address] Oct, [facility] [address] [facility] [id number] [address] [place] [address] Oct, [facility] [address] [id number] [address] [place] [address] Oct, [facility] [address] [facility] [id number] [address] [place] [id number] Jul, IMMUNIZATIONS No Known Immunizations SOCIAL HISTORY [...] hospitalizations for psychosis/mental illness, last one in [place] at [facility] 4 years ago Hospitalization History broken ankle 08/2018
--- OUTSIDE RECORDS SUMMARY | 2019-07-07 04:44 | XMS REPORT ---
Author Author Alayna Hewitt Organization [facility] Address [address] [place] [address] Care Team Providers Care Supervisor [employer] Name Role Phone RODO Hewitt Unavailable PROBLEMS Type Condition ICD9-CM Code [id number] Code Onset Dates Condition S tatus SNOMED Code Problem Depression with anxiety F41.8 Active 048992993 Problem Morbid obesity due to excess calories E66.01 Active 404906082 Problem Chronic obstructive pulmonary disease, unspecified COPD ty pe J44.9 Active 52025503 Problem Paranoid schizophrenia F20.0 Active 53407283 Problem Chronic pain syndrome G89.4 Active 569075530 Problem History of lupus Z87.39 Active 312 701565 Problem Type 2 diabetes mellitus wit hout complication, without long-term current use of insulin E11.9 Active 719895646 Problem Dyslipidemia E78.5 Active 3785556 07 Problem Migraine without aura and without status migrain osus, not intractable G43.009 Active 324986141 Problem Primary insomnia F51.01 Active 397 2004 Problem Schizoaffective disorder, depressive type F25.1 Active 45821429 Problem Menopausal syndrome (hot flashes) N95.1 Active 526324924 Problem DM neuro manif type II E11.49 Active 32793391 Problem Other seasonal allergic rhinitis J30.2 Active 816710016 Problem Other allergic rhinitis J30.89 Active 770091547 Problem Gastroesophageal reflux disease, esophagitis pre sence not specified K21.9 Active 368477169 Problem Tobacco abuse Z72.0 Active 377803 000 Problem Essential hypertension I10 Active 24819687 Problem Hypothyroidism (acquired) E03.9 Acti ve 105127644 Problem COPD exacerbation J44.1 Active 19 9712688 Problem Allergic rhinitis, unspecified seasonality, unspecifie d trigger J30.9 Active 68460594 Problem Gastroesophageal reflux disease without esophagitis K21.9 Active 229507873 Problem Constipation by delayed colonic transit K59.01 Active 96964138 Problem OAB (overactive bladder) N32.81 Activ e 339129079 Problem Seasonal allergic rhinitis due to other allergic trigger J30.89 Active 407430092 Problem Seasonal allergic rhinitis due to pollen J30.1 Active 33360047 Problem 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 [address] [facility] [id number] [address] [place] [phone] Dec, [facility] [address] [facility] [id number] [place] [phone] Nov, [facility] [address] [place] [id number] [place] [phone] Oct, [facility] [address] [place] [id number] [address] [place] [phone] Oct, [facility] [address] [place] [id number] [address] [place] [phone] Oct, [facility] [address] [place] [id number] [address] [place] [phone] Oct, Chronic obstructive pulmonar y disease, unspecified COPD type J44.9 [facility] [address] [place] [id number] [address] [place] [phone] Oct, [facility] [address] [place] [id number] [address] [place] [phone] Sep, Paranoid schizophrenia F20.0 [facility] [address] [place] [id number] [address] [place] [phone] Sep, [facility] [address] [facility] [id number] [address] [place] [phone] Sep, [facility] [address] [place] [id number] [address] [place] [phone] Sep, Encounter for immunization Z 23 [facility] [address] [facility] [id number] [address] [place] [phone] Sep, Closed fracture of right ank le, sequela S82.891S ; Morbid obesity E66.01 and Heat rash L74.0 [facility] [address] [id number] [address] [place] [phone] Sep, [facility] [address] [id number] [address] [place] [phone] Sep, Schizoaffective disorder, de pressive type F25.1 [facility] [address] [id number] [address] [place] [phone] Sep, [facility] [address] [id number] [address] [place] [phone] Sep, [facility] [address] [id number] [address] [place] [phone] Sep, [facility] [address] [id number] [address] [place] [phone] Sep, [facility] [address] [facility] [id number] [address] [place] [phone] Sep, [facility] [address] [facility] [id number] [address] [place] [phone] Sep, [facility] [address] [facility] [id number] [address] [place] [phone] Sep, [facility] [address] [facility] [id number] [address] [place] [phone] Sep, [facility] [address] [facility] [id number] [address] [place] [phone] Sep, [facility] [address] [facility] [id number] [address] [place] [phone] August, Paranoid schizophrenia F20.0 [facility] [address] [id number] [address] [place] [phone] August, [facility] [address] [facility] [id number] [address] [place] [phone] August, [facility] [address] [facility] [id number] [address] [place] [phone] August, [facility] [address] [facility] [id number] [address] [place] [phone] August, Type 2 diabetes mellitus wit hout complication, without long-term current use of insulin E11.9 ; Closed fracture of right ankle, initial encounter S82.891A ; Constipation by delayed colonic transit K59.01 ; Osteoporosis with pathological fracture, initial encounter M80.00XA ; Encounter for immunization Z23 and Morbid obesity E66.01 [facility] [address] [facility] [id number] [address] [place] [phone] August, [place] [address] [facility] [id number] [address] [place] [phone] August, [facility] [address] [facility] [id number] [address] [place] [phone] August, Acquired deformity of muscul oskeletal system, unspecified M95.9 [facility] [address] [facility] [id number] [address] [place] [phone] August, Paranoid schizophrenia F20.0 [facility] [address] [id number] [address] [address] August, [facility] [address] [facility] [id number] [address] [place] [phone] Jul, [facility] [address] [facility] [id number] [address] [place] [phone] Jul, Diabetic polyneuropathy asso ciated with type 2 diabetes mellitus E11.42 ; Paranoid schizophrenia F20.0 ; Preoperative clearance Z01.818 and Morbid obesity E66.01 [facility] [address] [facility] [id number] [address] [place] [phone] Jul, Paranoid schizophrenia F20.0 [facility] [address] [facility] [id number] [address] [place] [phone] Jul, [place] [address] [facility] [id number] [address] [place] [phone] Jul, [place] [address] [facility] [id number] [address] [place] [phone] Jul, Cigarette nicotine dependenc e without complication F17.210 [place] [address] [place] [id number] [address] [place] [phone] Jul, Type 2 diabetes mellitus wit hout complication, without long-term current use of insulin E11.9 and Hypothyroidism (acquired) E03.9 [place] [address] [place] [id number] [place] [phone] Jul, Encounter for Medicare annua l wellness exam Z00.00 ; Morbid obesity due to excess calories E66.01 ; Diabetic polyneuropathy associated with type 2 diabetes mellitus E11.42 ; Chronic obstructive pulmonary disease, unspecified COPD type J44.9 ; Schizoaffective disorder, depressive type F25.1 ; Hypothyroidism (acquired) E03.9 and Morbid obesity E66.01 [place] [address] [place] [phone] Jun, Gastroesophageal reflux dise ase without esophagitis K21.9 [place] [address] [place] [id number] [address] [place] [phone] Jun, Paranoid schizophrenia F20.0 [place] [address] [facility] [id number] [address] [place] [phone] Jun, Schizoaffective disorder, de pressive type F25.1 [place] [address] [place] [id number] [address] [place] [phone] Jun, [place] [address] [place] [id number] [address] [place] [phone] Jun, Schizoaffective disorder, de pressive type F25.1 [place] [address] [place] [id number] [address] [place] [phone] Jun, Cigarette nicotine dependenc e without complication F17.210 [facility] [address] [facility] [id number] [address] [place] [phone] 18 Jun, 2018 Type 2 diabetes mellitus wit hout complication, without long-term current use of insulin E11.9 [facility] [address] [facility] [id number] [address] [place] [phone] 15 Jun, 2018 [facility] [address] [facility] [id number] [address] [place] [phone] Jun, [facility] [address] [facility] [id number] [address] [place] [phone] Jun, [facility] [address] [facility] [id number] [address] [place] [phone] Jun, [facility] [address] [facility] [id number] [address] [place] [phone] Jun, [facility] [address] [facility] [id number] [address] [place] [phone] 06 Jun, 2018 Paranoid schizophrenia F20.0 ; Type 2 diabetes mellitus without complication, without long-term current use of insulin E11.9 ; Hypothyroidism (acquired) E03.9 and Morbid obesity E66.01 [facility] [address] [facility] [id number] [address] [place] [phone] May, Paranoid schizophrenia F20.0 [facility] [address] [facility] [id number] [address] [place] [phone] May, Hypothyroidism (acquired) E0 3.9 and Dyslipidemia E78.5 [place] [address] [facility] [id number] [address] [place] [phone] May, Cigarette nicotine dependenc e without complication F17.210 [facility] [address] [facility] [id number] [address] [place] [phone] 18 May, 2018 [facility] [address] [facility] [id number] [address] [place] [phone] 14 May, 2018 Type 2 diabetes mellitus wit hout complication, without long-term current use of insulin E11.9 ; Essential hypertension I10 ; Hypothyroidism (acquired) E03.9 and Dyslipidemia E78.5 [facility] [address] [place] [id number] [address] [place] [phone] 13 May, 2018 [facility] [address] [address] May, Schizoaffective disorder, de pressive type F25.1 [place] [address] [phone] 08 May, 2018 Paranoid schizophrenia F20.0 [place] [address] [phone] 07 May, 2018 [facility] [address] [place] [address] 07 May, 19 [place] [address] [phone] May, [facility] [address] [address] May, Type 2 diabetes mellitus wit hout complication, without long-term current use of insulin E11.9 ; Essential hypertension I10 ; Hypothyroidism (acquired) E03.9 and Dyslipidemia E78.5 [place] [address] [place] [id number] [address] [place] [phone] May, [facility] [address] [place] [id number] [address] [place] [phone] May, Acute nasopharyngitis J00 [facility] W[facility] IN [facility] [address] [address] May, Allergic rhinitis, unspecifi ed seasonality, unspecified trigger J30.9 [facility] [address] [place] [id number] [address] [place] [phone] May, [facility] [address] [place] [address] Apr, Schizoaffective disorder, de pressive type F25.1 [facility] [address] [facility] [id number] [address] [place] [phone] Apr, [facility] [address] [facility] [id number] [address] [place] [phone] Apr, Cigarette nicotine dependenc e without complication F17.210 [facility] [address] [facility] [id number] [address] [place] [phone] Apr, [facility] [address] [facility] [id number] [address] [place] [phone] Apr, Cigarette nicotine dependenc e without complication F17.210 [place] [address] [facility] [id number] [address] [place] [phone] Apr, [facility] [address] [place] [id number] [address] [place] [phone] Apr, Migraine without aura and wi thout status migrainosus, not intractable G43.009 [place] [address] [place] [id number] [address] [place] [address] Apr, Migraine without aura and wi thout status migrainosus, not intractable G43.009 [place] [address] [place] [id number] [address] [place] [address] Mar, Schizoaffective disorder, de pressive type F25.1 ; BMI 45.0-49.9, adult Z68.42 and BMI 40.0-44.9, adult Z68.41 [place] [address] [place] [id number] [address] [place] [phone] Mar, Primary insomnia F51.01 [facility] [address] [facility] [id number] [address] [place] [phone] Mar, [facility] [address] [place] [id number] [address] [place] [phone] Feb, Primary insomnia F51.01 [place] [address] [address] Feb, [place] [address] [address] Jan, Schizoaffective disorder, de pressive type F25.1 and BMI 45.0-49.9, adult Z68.42 [place] [address] [address] Jan, [place] [address] [address] Jan, 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, without long-term current use of insulin E11.610 ; Menopausal syndrome (hot flashes) N95.1 and BMI 40.0-44.9, adult Z68.41 [place] [address] [address] Jan, Paranoid schizophrenia F20.0 [place] [address] [address] Jan, [place] [address] [address] Jan, Schizoaffective disorder, de pressive type F25.1 [place] [address] [phone] Jan, [place] [address] [address] Jan, Chronic obstructive pulmonar y disease, unspecified COPD type J44.9 ; BMI 45.0-49.9, adult Z68.42 ; Type 2 diabetes mellitus without complication, without long-term current use of insulin E11.9 ; Hypothyroidism (acquired) E03.9 ; Encounter for immunization Z23 ; Gastroesophageal reflux disease without esophagitis K21.9 ; Primary insomnia F51.01 and Acute nasopharyngitis J00 [place] [address] [place] [id number] [place] [phone] 27 Dec, 2017 [facility] [address] [id number] [address] [place] [phone] 21 Dec, 2017 Schizoaffective disorder, de pressive type F25.1 and BMI 45.0-49.9, adult Z68.42 [facility] [address] [id number] [address] [place] [phone] Dec, [facility] [address] [id number] [address] [place] [phone] 18 Dec, 2017 [facility] [address] [id number] [address] [place] [phone] 18 Dec, 2017 Acute non-recurrent frontal sinusitis J01.10 [facility] [address] [id number] [address] [place] [address] 18 Dec, 2017 Acute non-recurrent frontal sinusitis J01.10 ; Weakness of left leg R29.898 ; At high risk for falls Z91.81 and BMI 45.0-49.9, adult Z68.42 [facility] [address] [id number] [address] [place] [phone] 17 Dec, 2017 [facility] [address] [id number] [address] [place] [phone] Dec, [facility] [address] [id number] [address] [place] [phone] Dec, Schizoaffective disorder, de pressive type F25.1 [facility] WALK IN [facility] [address] [id number] [address] [place] [phone] 10 Dec, 2017 Acute nasopharyngitis J00 [facility] [address] [id number] [address] [place] [phone] 05 Dec, 2017 Schizoaffective disorder, de pressive type F25.1 [facility] [address] [id number] [address] [place] [phone] Dec, [facility] [address] [place] [address] Nov, Schizoaffective disorder, de pressive type F25.1 and BMI 45.0-49.9, adult Z68.42 [place] [address] [place] [id number] [address] [place] [phone] Nov, [place] [address] [address] Nov, [place] [address] [address] Nov, Schizoaffective disorder, de pressive type F25.1 [place] [address] [address] Nov, Well woman exam Z01.419 ; BM I 45.0-49.9, adult Z68.42 ; Screening breast examination Z12.31 and Dietary counseling and surveillance Z71.3 [place] [address] [place] [id number] [address] [place] [address] Nov, Paranoid schizophrenia F20.0 [place] [address] [address] Nov, Gastroesophageal reflux dise ase, esophagitis presence not specified K21.9 [place] [address] [facility] [id number] [address] [place] [phone] Oct, Paranoid schizophrenia F20.[address] [facility] [id number] [place] [phone] Oct, Chronic pain syndrome G89.4 and Schizoaf fective disorder, depressive type F25.1 [place] [address] [place] [id number] [address] [place] [address] Oct, Chronic pain syndrome G89.4 and Schizoaffective disorder, depressive type F25.1 [place] [address] [facility] [id number] [address] [place] [phone] Oct, Type 2 diabetes mellitus wit hout complication, without long-term current use of insulin E11.9 [facility] [address] [facility] [id number] [address] [place] [phone] 12 Oct, 2017 Essential hypertension I10 a nd DM neuro manif type II E11.49 [facility] [address] [facility] [id number] [address] [place] [phone] Oct, 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, without long-term current use of insulin E11.610 ; Essential hypertension I10 ; Hypothyroidism (acquired) E03.9 ; Chronic obstructive pulmonary disease, unspecified COPD type J44.9 and Diabetic polyneuropathy associated with type 2 diabetes mellitus E11.42 [place] [id number] [place] [id number] [address] [place] [phone] Sep, Paranoid schizophrenia F20.0 [place] [address] [facility] [id number] [address] [place] [phone] Sep, Paranoid schizophrenia F20.0 and BMI 45.0-49.9, adult Z68.42 [place] [address] [facility] [id number] [address] [place] [phone] Sep, Schizoaffective disorder, de pressive type F25.1 [place] [address] [place] [id number] [address] [place] [phone] Sep, [place] [address] [place] [id number] [address] [place] [phone] Sep, Paranoid schizophrenia F20.0 [facility] [address] [place] [id number] [address] [place] [phone] 07 Sep, 2017 [facility] [address] [facility] [id number] [address] [place] [phone] Sep, Hypothyroidism (acquired) E0 3.9 [facility] [address] [place] [id number] [address] [place] [phone] Sep, [facility] [address] [place] [id number] [address] [place] [phone] August, Schizoaffective disorder, de pressive type F25.1 [facility] [address] [place] [id number] [address] [place] [phone] August, [facility] [address] [place] [id number] [place] [phone] August, [facility] [address] [place] [id number] [place] [phone] August, [facility] [address] [phone] August, Paranoid schizophrenia F20.0 [facility] [address] [place] [id number] [address] [place] [phone] August, History of lupus Z87.39 and Chronic pain syndrome G89.4 [facility] [address] [place] [id number] [address] [place] [phone] August, [facility] [address] [facility] [id number] [address] [place] [phone] August, Seasonal allergic rhinitis, unspecified trigger J30.2 and BMI 45.0-49.9, adult Z68.42 [facility] [address] [facility] [id number] [address] [place] [phone] Jul, Schizoaffective disorder, de pressive type F25.1 [facility] [id number] [place] [phone] Jul, [facility] [address] [phone] Jul, Hypothyroidism (acquired) E0 3.9 [facility] [address] [place] [id number] [place] [phone] 11 Jul, 2017 Chronic obstructive pulmonar y disease, unspecified COPD type J44.9 and Type 2 diabetes mellitus without complication, without long-term current use of insulin E11.9 [facility] [address] [place] [id number] [address] [place] [phone] Jul, Paranoid schizophrenia F20.0 [place] [address] [place] [id number] [place] [phone] Jun, Hypothyroidism (acquired) E0 3.9 and Seasonal allergic rhinitis due to pollen J30.1 [facility] [address] [address] Jun, Shortness of breath at rest R06.02 ; COPD exacerbation J44.1 and BMI 45.0-49.9, adult Z68.42 [facility] [address] [address] Jun, [facility] [address] [place] [id number] [place] [phone] Jun, Paranoid schizophrenia F20.0 ; Depression with anxiety F41.8 and BMI 45.0-49.9, adult Z68.42 [facility] [address] [place] [id number] [place] [phone] Jun, Schizoaffective disorder, de pressive type F25.1 [facility] [address] [facility] [id number] [address] [place] [id number] Jun, Dental caries K02.9 [facility] [address] [place] [id number] [address] [place] [phone] Jun, Paranoid schizophrenia F20.0 [facility] [address] [facility] [id number] [address] [place] [phone] May, Migraine without aura and wi thout status migrainosus, not intractable G43.009 ; DM neuro manif type II E11.49 and Type 2 diabetes mellitus without complication, without long-term current use of insulin E11.9 [facility] [address] [facility] [id number] [address] [place] [phone] May, Migraine without aura and wi thout status migrainosus, not intractable G43.009 [facility] [address] [facility] [id number] [address] [place] [phone] May, Depression with anxiety F41. 8 [facility] [address] [facility] [id number] [address] [place] [id number] May, [facility] [address] [facility] [id number] [address] [place] [phone] May, [facility] [address] [facility] [id number] [address] [place] [phone] May, [facility] [address] [place] [id number] [place] [phone] May, Hypothyroidism (acquired) E0 3.9 [facility] [address] [facility] [id number] [address] [place] [phone] May, Paranoid schizophrenia F20.0 [facility] [address] [facility] [id number] [address] [place] [phone] May, Type 2 diabetes mellitus wit hout [...] [facility] [address] [facility] [id number] [address] [place] [phone] May, Controlled substance agreeme nt signed Z79.899 [facility] [address] [facility] [id number] [address] [place] [phone] Apr, [facility] [place] [facility] [address] [id number] [address] [place] [id number] Apr, Dental examination Z01.20 [facility] [address] [facility] [id number] [address] [place] [phone] Apr, Paranoid schizophrenia F20.0 [facility] [address] [place] [id number] [place] [phone] Apr, Hypertension, unspecified ty pe I10 [facility] [address] [facility] [id number] [address] [place] [phone] Apr, Paranoid schizophrenia F20.0 [facility] [address] [place] [id number] [place] [phone] Apr, [facility] [address] [facility] [id number] [address] [place] [phone] Apr, Tobacco abuse Z72.0 [facility] [address] [facility] [id number] [address] [place] [phone] Apr, [facility] [address] [facility] [id number] [address] [place] [phone] Mar, [facility] [address] [place] [id number] [place] [phone] Mar, Paranoid schizophrenia F20.0 and BMI 45.0-49.9, adult Z68.42 [facility] [address] [facility] [id number] [address] [place] [phone] Mar, Schizoaffective disorder, de pressive type F25.1 [facility] [address] [place] [id number] [place] [phone] Mar, [facility] [address] [place] [id number] [place] [phone] Mar, Schizoaffective disorder, de pressive type F25.1 [facility] [address] [phone] Mar, Hypothyroidism, unspecified type E03.[address] [facility] [address] [place] [id number] [place] [phone] Feb, Gastroenteritis K52.9 and BM I 45.0-49.9, adult Z68.42 [place] [address] [phone] Feb, [place] [address] [address] Feb, [place] [address] [phone] Feb, [place] [address] [address] 16 Feb, 2017 [place] [address] [address] Feb, Paranoid schizophrenia F20.0 [place] [address] [address] 06 Feb, 2017 Gastroesophageal reflux dise ase without esophagitis K21.9 ; Other seasonal allergic rhinitis J30.2 ; Other allergic rhinitis J30.89 ; Tobacco abuse Z72.0 and BMI 40.0-44.9, adult Z68.41 [place] [address] [address] 03 Feb, 2017 Onychomycosis B35.1 ; Callus of foot L84 and DM neuro manif type II E11.49 [place] [address] [place] [address] 31 Jan, 2017 Chronic allergic rhinitis J3 0.9 [facility] [address] [facility] [id number] [place] [phone] 16 Jan, 2017 [facility] [address] [place] [id number] [place] [phone] 13 Jan, 2017 Schizoaffective disorder, de pressive type F25.1 [facility] [address] [address] 10 Jan, 2017 [facility] [address] [place] [id number] [place] [phone] 07 Jan, 2017 Sore throat J02.9 and Season al allergic rhinitis due to other allergic trigger J30.89 [facility] [address] [address] 04 Jan, 2017 [facility] [address] [address] 04 Jan, 2017 [facility] [address] [address] Jan, Chronic allergic rhinitis J3 0.9 [facility] [address] [address] 27 Dec, 2016 Paranoid schizophrenia F20.0 ; Primary insomnia F51.01 and Schizoaffective disorder, depressive type F25.1 [facility] [address] [address] 21 Dec, 2016 Chronic pain syndrome G89.4 ; Cervicalgia of ommhxhlu-cfnoacl-abrod region M54.2 ; Menopausal syndrome (hot flashes) N95.1 and Encounter for immunization Z23 [facility] [address] [place] [id number] [place] [phone] 14 Dec, 2016 [facility] [address] [place] [id number] [place] [phone] 13 Dec, 2016 [facility] [address] [facility] [id number] [address] [place] [phone] Dec, Paranoid schizophrenia F20.0 [place] [id number] [facility] [id number] [address] [place] [phone] Dec, Schizoaffective disorder, de pressive type F25.1 [facility] [address] [facility] [id number] [address] [place] [phone] Nov, Hypothyroidism, unspecified type E03.[address] [facility] [address] [facility] [id number] [address] [place] [phone] Nov, Acute seasonal allergic rhin itis due to other allergen J30.89 [place] [address] [facility] [id number] [address] [place] [phone] Nov, [place] [address] [place] [id number] [place] [phone] Nov, Hypothyroidism, unspecified type E03.9 and Other elevated white blood cell (WBC) count D72.828 [place] [address] [place] [id number] [place] [phone] Nov, Schizoaffective disorder, de pressive type F25.1 [place] [address] [place] [id number] [place] [phone] Nov, Paranoid schizophrenia F20.0 [place] [address] [place] [id number] [place] [phone] Nov, Type 2 diabetes mellitus wit hout complication, without long-term current use of insulin E11.9 ; Morbid obesity due to excess calories E66.01 and Chronic pain syndrome G89.4 [place] [address] [facility] [id number] [address] [place] [phone] Oct, Paranoid schizophrenia F20.0 [place] [address] [place] [id number] [place] [phone] Oct, [place] [address] [place] [id number] [place] [phone] Oct, Schizoaffective disorder, de pressive type F25.1 [facility] [address] [facility] [id number] [address] [place] [phone] Oct, Hypothyroidism, unspecified type E03.9 and Other elevated white blood cell (WBC) count D72.828 [facility] [address] [facility] [id number] [address] [place] [phone] Oct, Morbid obesity due to excess calories E66.01 ; Chronic obstructive pulmonary disease, unspecified COPD type J44.9 ; History of lupus Z87.39 ; Hypothyroidism, unspecified type E03.9 ; Gastroesophageal reflux disease without esophagitis K21.9 ; Primary insomnia F51.01 and Chronic pain syndrome G89.4 [facility] [address] [id number] [address] [place] [phone] Sep, [facility] [address] [facility] [id number] [address] [place] [phone] Sep, [facility] [address] [id number] [address] [place] [phone] Sep, [facility] [address] [id number] [address] [place] [phone] Sep, Paranoid schizophrenia F20.0 [facility] [address] [facility] [id number] [address] [place] [phone] Sep, [facility] [address] [id number] [address] [place] [phone] Sep, Paranoid schizophrenia F20.0 [facility] [address] [id number] [address] [place] [phone] Sep, [facility] [address] [facility] [id number] [address] [place] [phone] August, Paranoid schizophrenia F20.0 [facility] [address] [facility] [id number] [address] [place] [phone] Jul, [facility] [address] [id number] 18 Jul, 2017 Type 2 diabetes mellitus wit hout complication, without long-term current use of insulin E11.9 ; Morbid obesity due to excess calories E66.01 ; Depression with anxiety F41.8 ; Hypothyroidism, unspecified type E03.9 ; Seasonal allergic rhinitis due to other allergic trigger J30.89 ; Pain, dental K08.89 and Gastroesophageal reflux disease without esophagitis K21.9 [facility] [place] [facility] [address] [place] [id number] [place] [id number] 12 Jul, 2016 Dental examination Z01.20 [place] [address] [id number] 07 Jul, 2016 Paranoid schizophrenia F20.0 [place] [address] [address] 13 Jun, 2016 Paranoid schizophrenia F20.0 and Depression with anxiety F41.8 [place] [address] [phone] 10 Jun, 2016 Paranoid schizophrenia F20.0 and Depression with anxiety F41.8 [place] [address] [address] 09 Jun, 2016 [place] [address] [address] Jun, [facility] [address] [address] Jun, Seasonal allergic rhinitis d ue to other allergic trigger J30.89 [facility] [address] [address] May, Sore throat J02.9 ; Other vi ral agents as the cause of diseases classified elsewhere B97.89 and Acute upper respiratory infection, unspecified J06.9 [place] [address] [address] 08 May, 2016 Paranoid schizophrenia F20.0 and Depression with anxiety F41.8 [facility] [address] [facility] [id number] [address] [place] [phone] Apr, Other seasonal allergic rhin itis J30.2 [place] [address] [facility] [id number] [address] [place] [phone] 11 Apr, 2016 Paranoid schizophrenia F20.0 and Depression with anxiety F41.8 [facility] [address] [place] [id number] [place] [phone] 07 Apr, 2016 Bronchitis J40 and Sore thro at J02.9 [place] [address] [place] [id number] [place] [phone] 03 Apr, 2016 Type 2 diabetes mellitus wit hout complication, without long-term current use of insulin E11.9 [facility] [address] [place] [id number] [place] [phone] 02 Apr, 2016 Bronchitis J40 [place] [address] [place] [phone] 02 Apr, 2016 [place] [address] [place] [phone] Apr, [place] [address] [phone] Mar, Type 2 diabetes mellitus wit hout [...] R60.9 and Other seasonal allergic rhinitis J30.2 [facility] [address] [place] [id number] [place] [phone] 09 Mar, 2016 Paranoid schizophrenia F20.0 and Depression with anxiety F41.8 [place] [address] [place] [id number] [place] [phone] Feb, [facility] [address] [id number] [address] [place] [phone] Feb, [facility] [address] [id number] [address] [place] [phone] Feb, [facility] [address] [id number] [address] [place] [phone] Feb, [facility] [address] [id number] [address] [place] [phone] 14 Feb, 2016 Type 2 diabetes mellitus wit hout complication, without long-term current use of insulin E11.9 ; ARIAS on CPAP G47.33 and Preoperative evaluation to rule out surgical contraindication Z01.818 [facility] [address] [id number] [address] [place] [phone] 09 Feb, 2016 Paranoid schizophrenia F20.0 and Depression with anxiety F41.8 [facility] [address] [id number] [address] [place] [phone] 18 Jan, 2016 [facility] [address] [id number] [address] [place] [phone] 18 Jan, 2016 Paranoid schizophrenia F20.0 and Depression with anxiety F41.8 [facility] [address] [id number] [address] [place] [phone] 17 Jan, 2016 [facility] [address] [id number] [address] [place] [phone] 14 Jan, 2016 Muscle strain T14.8 [facility] [address] [id number] [address] [place] [phone] 10 Jan, 2016 Paranoid schizophrenia F20.0 [facility] [address] [id number] [address] [place] [phone] 07 Jan, 2016 [facility] [address] [id number] [address] [place] [phone] 05 Jan, 2016 Paranoid schizophrenia F20.0 and Depression with anxiety F41.8 [facility] [address] [id number] [address] [place] [phone] 05 Jan, 2016 [facility] [address] [id number] [address] [place] [phone] Jan, [facility] [address] [id number] [address] [place] [phone] 28 Dec, 2015 [facility] [address] [id number] [address] [place] [phone] 23 Dec, 2015 Paranoid schizophrenia F20.0 [facility] [address] [id number] [address] [place] [phone] 16 Dec, 2015 Paranoid schizophrenia F20.0 and Depression with anxiety F41.8 [facility] [address] [id number] [address] [place] [phone] Nov, [facility] [address] [id number] [address] [place] [phone] Nov, Paranoid schizophrenia F20.0 [facility] [address] [id number] [address] [place] [phone] Nov, Paranoid schizophrenia F20.0 and Depression with anxiety F41.8 [facility] [address] [id number] [address] [place] [id number] Nov, Type 2 diabetes mellitus wit hout complication, without long-term current use of insulin E11.9 ; Paranoid schizophrenia F20.0 ; Chronic obstructive pulmonary disease, unspecified COPD type J44.9 ; Morbid obesity due to excess calories E66.01 and Parkinsonian tremor G20 [facility] [address] [id number] [address] [place] [id number] Nov, [facility] [address] [id number] [address] [place] [id number] Oct, Paranoid schizophrenia F20.0 [facility] [address] [id number] [address] [place] [phone] Oct, Paranoid schizophrenia F20.0 [place] [address] [id number] Oct, Paranoid schizophrenia F20.0 and Depression with anxiety F41.8 [place] [address] [phone] Oct, [place] [address] [place] [id number] [place] [phone] Oct, Paranoid schizophrenia F20.0 and Depression with anxiety F41.8 [place] [address] [id number] Oct, Nasal sore J34.[address] [id number] Oct, Type 2 diabetes mellitus wit hout complication, without long-term current use of insulin E11.9 ; Depression with anxiety F41.8 ; Hypothyroidism, unspecified type E03.9 and History of lupus Z87.39 [place] [address] [id number] Oct, [address] [phone] Oct, Type 2 diabetes mellitus wit hout [...] and History of lupus Z87.39 [place] [address] [phone] Feb, [place] [address] [id number] Jan, [facility] [address] [id number] [address] [place] [address], [place] [address] Jan, [facility] [address] [id number] [address] [place] [address], [place] [address] Jan, [facility] [address] [id number] [address] [place] [address], [place] [address] Dec, [facility] [address] [id number] [address] [place] [address], [place] [address] Nov, [facility] [address] [id number] [address] [place] [address], [place] [address] Nov, [facility] [address] [id number] [address] [place] [address], [place] [address] Oct, [facility] [address] [id number] [address] [place] [address], [place] [address] Oct, [facility] [address] [id number] [address] [place] [phone] Oct, [facility] [address] [id number] [address] [place] [id number] Sep, Allergic rhinitis 477.9 [facility] [address] [id number] [address] [place] [id number] Sep, Rhinitis, allergic 477.9 [facility] [address] [id number] [address] [place] [id number] Sep, Rhinitis, allergic 477.9 [facility] [address] [id number] [address] [place] [phone] Sep, [facility] [address] [id number] [address] [place] [id number] August, [facility] [address] [id number] [address] [place] [phone] August, [facility] [address] [id number] [address] [place] [address] August, [facility] [address] [id number] [facility] [place] [address] Jul, [facility] [address] [id number] [address] [place] [address], [place] [address] 14 Jul, 2014 [facility] [address] [id number] [address] [place] [address], [place] [address] Jul, [facility] [address] [id number] [address] [place] [address], [place] [address] 16 Jun, 2014 [facility] [address] [id number] [address] [place] [address], [place] [address] 16 Jun, 2014 [facility] [address] [id number] [address] [place] [address], [place] [address] Jun, [facility] [address] [id number] [address] [place] [address], [place] [address] Jun, [facility] [address] [id number] [address] [place] [address], [place] [address] Jun, [facility] [address] [id number] [address] [place] [address], [place] [address] Jun, [facility] [address] [id number] [address] [place] [address], [place] [address] Jun, [facility] [address] [id number] [address] [place] [address], [place] [address] Jun, [facility] [address] [id number] [address] [place] [address], [place] [address] May, [facility] [address] [id number] [address] [place] [address], [place] [address] May, [facility] [address] [id number] [address] [place] [address], [place] [address] May, [facility] [address] [id number] [address] [place] [address], [place] [address] May, [facility] [address] [id number] [address] [place] [address], [place] [address] Apr, [facility] [address] [id number] [address] [place] [address], [place] [address] Mar, [facility] [address] [id number] [address] [place] [address], [place] [address] Mar, [facility] [address] [id number] [address] [place] [address], [place] [address] Mar, [facility] [address] [id number] [address] [place] [address], [place] [address] Mar, [facility] [address] [id number] [address] [place] [address], [place] [address] Mar, [facility] [address] [id number] [address] [place] [address], [place] [address] Mar, [facility] [address] [id number] [address] [place] [address], [place] [address] Mar, [facility] [address] [id number] [address] [place] [address], [place] [address] Mar, [facility] [address] [id number] [address] [place] [address], [place] [address] Mar, [facility] [address] [id number] [address] [place] [address], [place] [address] Feb, [facility] [address] [id number] [address] [place] [address], [place] [address] Feb, [facility] [address] [id number] [address] [place] [address], [place] [address] Feb, [facility] [address] [id number] [address] [place] [address], [place] [address] Feb, [facility] [address] [id number] [address] [place] [address], [place] [address] Feb, [facility] [address] [id number] [address] [place] [address], [place] [address] Feb, [facility] [address] [id number] [address] [place] [address], [place] [address] Feb, [facility] [address] [id number] [address] [place] [address], [place] [address] Feb, [facility] [address] [id number] [address] [place] [address], [place] [address] 23 Jan, 2014 [facility] [address] [id number] [address] [place] [address], [place] [address] 23 Jan, 2014 [facility] [address] [id number] [address] [place] [address], [place] [address] 16 Jan, 2014 [facility] [address] [id number] [address] [place] [address], [place] [address] 16 Jan, 2014 [facility] [address] [id number] [address] [place] [address], [place] [address] 15 Jan, 2014 [facility] [address] [id number] [address] [place] [address], [place] [address] 15 Jan, 2014 [facility] [address] [id number] [address] [place] [address], [place] [address] 14 Jan, 2014 [facility] [address] [id number] [address] [place] [address], [place] [address] 14 Jan, 2014 [facility] [address] [id number] [address] [place] [address], [place] [address] 14 Jan, 2014 [facility] [address] [id number] [address] [place] [address], [place] [address] 14 Jan, 2014 [facility] [address] [id number] [address] [place] [address], [place] [address] 18 Dec, 2013 [facility] [address] [id number] [address] [place] [address], [place] [address] 18 Dec, 2013 [facility] [address] [id number] [address] [place] [address], [place] [address] 10 Dec, 2013 [facility] [address] [id number] [address] [place] [address], [place] [address] Dec, [facility] [address] [id number] [address] [place] [address], [place] [address] Nov, [facility] [address] [id number] [address] [place] [address], [place] [address] Nov, [facility] [address] [id number] [address] [place] [address], [place] [address] Nov, [facility] [address] [id number] [address] [place] [address], [place] [address] Nov, [facility] [address] [id number] [address] [place] [address], [place] [address] Nov, [facility] [address] [id number] [address] [place] [address], [place] [address] Oct, [facility] [address] [id number] [address] [place] [address], [place] [address] Oct, [facility] [address] [id number] [address] [place] [address], [place] [address] Oct, [facility] [address] [id number] [address] [place] [address], [place] [address] Oct, [facility] [address] [id number] [address] [place] [address], [place] [address] Sep, [facility] [address] [id number] [address] [place] [address], [place] [address] Sep, [facility] [address] [id number] [address] [place] [address], [place] [address] Sep, [facility] [address] [id number] [address] [place] [address], [place] [address] Sep, [facility] [address] [id number] [address] [place] [address], [place] [address] Sep, [facility] [address] [id number] [address] [place] [address], [place] [address] Sep, [facility] [place] [address] [id number] [facility] [place] [address] Sep, [facility] [address] [id number] [address] [place] [address], [place] [address] Sep, [facility] [address] [id number] [address] [place] [address], [place] [address] August, [facility] [address] [id number] [address] [place] [address], [place] [address] August, [facility] [address] [id number] [address] [place] [address], [place] [address] August, [facility] [address] [id number] [address] [place] [address], [place] [address] August, [facility] [address] [id number] [address] [place] [address], [place] [address] August, [facility] [address] [id number] [address] [place] [address], [place] [address] August, [facility] [address] [id number] [address] [place] [address], [place] [address] August, [facility] [address] [id number] [address] [place] [address], [place] [address] Jul, [facility] [place] [address] [id number] [address] [place] [address], [place] [address] Jul, [facility] [address] [id number] [address] [place] [address], [place] [address] Jul, [facility] [address] [id number] [address] [place] [address], [place] [address] Jul, [facility] [address] [id number] [address] [place] [address], [place] [address] Jul, [facility] [address] [id number] [address] [place] [address], [place] [address] Jul, [facility] [address] [id number] [address] [place] [address], [place] [address] Jul, [facility] [address] [id number] [facility] [place] [address] Jul, [facility] [address] [id number] [address] [place] [address], [place] [address] Jul, [facility] [address] [id number] [address] [place] [address], [place] [address] Jul, [facility] [address] [id number] [address] [place] [address], [place] [address] Jul, [facility] [address] [id number] [address] [place] [address], [place] [address] Jul, [facility] [address] [id number] [address] [place] [address], [place] [address] Jun, [facility] [address] [id number] [address] [place] [address], [place] [address] Jun, [facility] [address] [id number] [address] [place] [address], [place] [address] Jun, [facility] [address] [id number] [address] [place] [address], [place] [address] Jun, [facility] [address] [id number] [address] [place] [address], [place] [address] Jun, [facility] [address] [id number] [address] [place] [address], [place] [address] May, [facility] [address] [id number] [address] [place] [address], [place] [address] May, [facility] [address] [id number] [address] [place] [address], [place] [address] May, [facility] [address] [id number] [address] [place] [address], [place] [address] May, [facility] [address] [id number] [address] [place] [address], [place] [address] May, [facility] [place] [address] [id number] [address] [address] May, 2013 [facility] [address] [id number] [address] [place] [address], [place] [address] May, 2013 [facility] [address] [id number] [address] [place] [address], [place] [address] May, 2013 [facility] [address] [id number] [address] [place] [address], [place] [address] Mar, [facility] [address] [id number] [address] [place] [address], [place] [address] Mar, [facility] [address] [id number] [address] [place] [address], [place] [address] Mar, [facility] [address] [id number] [address] [place] [address], [place] [address] Mar, [facility] [address] [id number] [address] [place] [address], [place] [address] Mar, [facility] [address] [id number] [address] [place] [address], [place] [address] Mar, [facility] [address] [id number] [address] [place] [address], [place] [address] Feb, [facility] [address] [id number] [address] [place] [address], [place] [address] Feb, [facility] [address] [id number] [address] [place] [address], [place] [address] Jan, [facility] [address] [id number] [address] [place] [address], [place] [address] Jan, [facility] [address] [id number] [address] [place] [address], [place] [address] Jan, [facility] [address] [id number] [address] [place] [address], [place] [address] Jan, [facility] [address] [id number] [address] [place] [address], [place] [address] Jan, [facility] [address] [id number] [address] [place] [address], [place] [address] Jan, [facility] [address] [id number] [address] [place] [address], [place] [address] Jan, [facility] [address] [id number] [address] [place] [address], [place] [address] Jan, [facility] [address] [id number] [address] [place] [address], [place] [address] Jan, [facility] [address] [id number] [address] [place] [address], [place] [address] Jan, [facility] [address] [id number] [address] [place] [address], [place] [address] Dec, [facility] [address] [id number] [address] [place] [address], [place] [address] Nov, [facility] [address] [id number] [address] [place] [address], [place] [address] Nov, [facility] [address] [id number] [address] [place] [address], [place] [address] Nov, [facility] [address] [id number] [address] [place] [address], [place] [address] Oct, [facility] [address] [id number] [address] [place] [address], [place] [address] Oct, [facility] [address] [id number] [address] [place] [address], [place] [address] August, [facility] [address] [id number] [address] [place] [address], [place] [address] Apr, [facility] [address] [id number] [address] [place] [address], [place] [address] Apr, [facility] [address] [id number] [address] [place] [address], [place] [address] Feb, [facility] [address] [id number] [address] [place] [address] Feb, [facility] [address] [facility] [id number] [address] [place] [address] Dec, [facility] [address] [facility] [id number] [address] [place] [address] Dec, [facility] [address] [facility] [id number] [address] [place] [address] Oct, [facility] [address] [facility] [id number] [address] [place] [address] Oct, [facility] [address] [facility] [id number] [address] [place] [address] Oct, [facility] [address] [facility] [id number] [address] [place] [address] Jul, IMMUNIZATIONS No Known Immunizations SOCIAL HISTORY [...] psychosis/mental illness, last one in [facility] 4 years ago Hospitalization History broken ankle 08/2018
--- OUTSIDE RECORDS SUMMARY | 2019-07-07 04:45 | XMS REPORT ---
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 Name Role Phone PALMERJERRELL Unavailable PROBLEMS Type Condition ICD9-CM Code AEV21-GS Code Onset Dates Condition S tatus SNOMED Code Problem Depression with anxiety F41.8 Active 535394569 Problem Morbid obesity due to excess calories E66.01 Active 462106760 Problem Chronic obstructive pulmonary disease, unspecified COPD ty pe J44.9 Active 78473239 Problem Paranoid schizophrenia F20.0 Active 73077447 Problem Chronic pain syndrome G89.4 Active 915121930 Problem History of lupus Z87.39 Active 312 070603 Problem Type 2 diabetes mellitus wit hout complication, without long-term current use of insulin E11.9 Active 990620599 Problem Dyslipidemia E78.5 Active 8597107 07 Problem Migraine without aura and without status migrain osus, not intractable G43.009 Active 957488053 Problem Primary insomnia F51.01 Active 397 2004 Problem Schizoaffective disorder, depressive type F25.1 Active 62129703 Problem Menopausal syndrome (hot flashes) N95.1 Active 184136180 Problem DM neuro manif type II E11.49 Active 12896485 Problem Other seasonal allergic rhinitis J30.2 Active 822570763 Problem Other allergic rhinitis J30.89 Active 243671790 Problem Gastroesophageal reflux disease, esophagitis pre sence not specified K21.9 Active 934364485 Problem Tobacco abuse Z72.0 Active 027151 000 Problem Essential hypertension I10 Active 64223898 Problem Hypothyroidism (acquired) E03.9 Acti ve 500465475 Problem COPD exacerbation J44.1 Active 19 6062628 Problem Allergic rhinitis, unspecified seasonality, unspecifie d trigger J30.9 Active 32870038 Problem Gastroesophageal reflux disease without esophagitis K21.9 Active 094630421 Problem Constipation by delayed colonic transit K59.01 Active 18807283 Problem OAB (overactive bladder) N32.81 Activ e 457910804 Problem Seasonal allergic rhinitis due to other allergic trigger J30.89 Active 136971301 Problem Seasonal allergic rhinitis due to pollen J30.1 Active 27466057 Problem 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, without long-term current use of insulin E11.610 Active 288329253 Problem Diabetic polyneuropathy associated with type 2 d iabetes mellitus E11.42 Active 486148940 Problem Cigarette nicotine dependence without complication F17.210 Active 70831990 ALLERGIES No Information ENCOUNTERS Encounter Location Date Diagnosis [facility] [address] [facility] [id number] [address] [place] [address] Dec, [place] [address] [facility] [id number] [place] [address] Oct, [place] [address] [place] [id number] [address] [place] [address] Oct, [facility] [address] [place] [id number] [address] [place] [address] Oct, [facility] [address] [place] [id number] [address] [place] [address] Oct, Chronic obstructive pulmonar y disease, unspecified COPD type J44.9 [facility] [address] [place] [id number] [address] [place] [address] Oct, [facility] [address] [place] [id number] [address] [place] [address] Sep, Paranoid schizophrenia F20.0 [facility] [address] [facility] [id number] [address] [place] [address] Sep, [facility] [address] [place] [id number] [address] [place] [address] Sep, [facility] [address] [place] [id number] [address] [place] [address] Sep, Encounter for immunization Z 23 [facility] [address] [place] [id number] [address] [place] [address] Sep, [facility] [address] [id number] [address] [place] [address] Sep, Closed fracture of right ank henrry, sequela S82.891S ; Morbid obesity E66.01 and Heat rash L74.0 [facility] [address] [id number] [address] [place] [address] Sep, Schizoaffective disorder, de pressive type F25.1 [facility] [address] [id number] [address] [place] [address] Sep, [facility] [address] [id number] [address] [place] [address] Sep, [facility] [address] [id number] [address] [place] [address] Sep, [facility] [address] [id number] [address] [place] [address] Sep, [facility] [address] [id number] [address] [place] [address] Sep, [facility] [address] [id number] [address] [place] [address] Sep, [facility] [address] [id number] [address] [place] [address] Sep, [facility] [address] [id number] [address] [place] [address] Sep, [facility] [address] [id number] [address] [place] [address] Sep, [facility] [address] [id number] [address] [place] [address] August, Paranoid schizophrenia F20.0 [facility] [address] [id number] [address] [place] [address] August, [facility] [address] [id number] [address] [place] [address] August, [facility] [address] [facility] [id number] [address] [place] [address] August, [facility] [address] [facility] [id number] [address] [place] [address] August, Type 2 diabetes mellitus wit hout complication, without long-term current use of insulin E11.9 ; Closed fracture of right ankle, initial encounter S82.891A ; Constipation by delayed colonic transit K59.01 ; Osteoporosis with pathological fracture, initial encounter M80.00XA ; Encounter for immunization Z23 and Morbid obesity E66.01 [facility] [address] [facility] [id number] [address] [place] [address] August, [facility] [address] [facility] [id number] [address] [place] [address] August, [facility] [address] [facility] [id number] [address] [place] [address] August, Acquired deformity of muscul oskeletal system, unspecified M95.9 [facility] [address] [facility] [id number] [address] [place] [address] August, Paranoid schizophrenia F20.0 [facility] [address] [place] [id number] [place] [address] August, [facility] [address] [facility] [id number] [address] [place] [address] Jul, [facility] [address] [facility] [id number] [address] [place] [address] Jul, Diabetic polyneuropathy asso ciated with type 2 diabetes mellitus E11.42 ; Paranoid schizophrenia F20.0 ; Preoperative clearance Z01.818 and Morbid obesity E66.01 [facility] [address] [facility] [id number] [address] [place] [address] Jul, Paranoid schizophrenia F20.0 [facility] [address] [facility] [id number] [address] [place] [address] Jul, [facility] [address] [facility] [id number] [address] [place] [address] 2018 [place] [address] [facility] [id number] [address] [place] [address] Jul, Cigarette nicotine dependenc e without complication F17.210 [place] [address] [facility] [id number] [address] [place] [address] Jul, Type 2 diabetes mellitus wit hout complication, without long-term current use of insulin E11.9 and Hypothyroidism (acquired) E03.9 [place] [address] [facility] [id number] [address] [place] [address] Jul, Encounter for Medicare [facility] wellness exam Z00.00 ; Morbid obesity due to excess calories E66.01 ; Diabetic polyneuropathy associated with type 2 diabetes mellitus E11.42 ; Chronic obstructive pulmonary disease, unspecified COPD type J44.9 ; Schizoaffective disorder, depressive type F25.1 ; Hypothyroidism (acquired) E03.9 and Morbid obesity E66.01 [place] [address] [facility] [id number] [address] [place] [address] 28 Jun, 2018 Gastroesophageal reflux dise ase without esophagitis K21.9 [place] [address] [facility] [id number] [address] [place] [address] 28 Jun, 2018 Paranoid schizophrenia F20.0 [place] [address] [facility] [id number] [address] [place] [address] Jun, Schizoaffective disorder, de pressive type F25.1 [place] [address] [facility] [id number] [address] [place] [address] Jun, [place] [address] [facility] [id number] [address] [place] [address] Jun, Schizoaffective disorder, de pressive type F25.1 [place] [address] [facility] [id number] [address] [place] [address] Jun, Cigarette nicotine dependenc e without complication F17.210 [place] [id number] [place] [address] Jun, Type 2 diabetes mellitus wit hout complication, without long-term current use of insulin E11.9 [facility] [address] [facility] [id number] [address] [place] [address] 15 Jun, 2018 [facility] [address] [place] [id number] [place] [address] Jun, [facility] [address] [address] Jun, [facility] [address] [place] [id number] [place] [address] Jun, [facility] [address] [address] Jun, [facility] [address] [address] Jun, Paranoid schizophrenia F20.0 ; Type 2 diabetes mellitus without complication, without long-term current use of insulin E11.9 ; Hypothyroidism (acquired) E03.9 and Morbid obesity E66.01 [facility] [address] [address] 28 May, 2018 Paranoid schizophrenia F20.0 [facility] [address] [address] 20 May, 2018 Hypothyroidism (acquired) E0 3.9 and Dyslipidemia E78.5 [facility] [address] [place] [id number] [address] [place] [address] May, Cigarette nicotine dependenc e without complication F17.210 [facility] [address] [place] [id number] [address] [place] [address] 18 May, 2018 [facility] [address] [place] [id number] [address] [place] [address] 14 May, 2018 Type 2 diabetes mellitus wit hout complication, without long-term current use of insulin E11.9 ; Essential hypertension I10 ; Hypothyroidism (acquired) E03.9 and Dyslipidemia E78.5 [facility] [address] [address] May, [facility] [address] [address] May, Schizoaffective disorder, de pressive type F25.1 [facility] [address] [address] May, Paranoid schizophrenia F20.0 [facility] [address] [address] May, [place] [address] [place] [address] May, [place] [address] [address] May, [place] [address] [address] May, Type 2 diabetes mellitus wit hout complication, without long-term current use of insulin E11.9 ; Essential hypertension I10 ; Hypothyroidism (acquired) E03.9 and Dyslipidemia E78.5 [facility] [address] [address] May, [facility] [address] [address] May, Acute nasopharyngitis J00 [facility] [address] [place] [id number] [address] [place] [address] May, Allergic rhinitis, unspecifi ed seasonality, unspecified trigger J30.9 [facility] [address] [place] [id number] [address] [place] [address] May, [facility] [address] [place] [id number] [address] [place] [address] Apr, Schizoaffective disorder, de pressive type F25.1 [facility] [address] [facility] [id number] [address] [place] [address] Apr, [facility] [address] [place] [id number] [place] [address] Apr, Cigarette nicotine dependenc e without complication F17.210 [facility] [address] [place] [id number] [address] [place] [address] 17 Apr, 2018 [facility] [address] [place] [id number] [place] [address] Apr, Cigarette nicotine dependenc e without complication F17.210 [place] [address] [place] [id number] [place] [address] Apr, [facility] [address] [place] [id number] [place] [address] Apr, Migraine without aura and wi thout status migrainosus, not intractable G43.009 [place] [address] [address] 02 Apr, 2018 Migraine without aura and wi thout status migrainosus, not intractable G43.009 [place] [address] [place] [id number] [place] [address] Mar, Schizoaffective disorder, de pressive type F25.1 ; BMI 45.0-49.9, adult Z68.42 and BMI 40.0-44.9, adult Z68.41 [place] [address] [place] [id number] [address] [place] [address] Mar, Primary insomnia F51.01 [place] [address] [address] Mar, [place] [address] [address] 14 Feb, 2018 Primary insomnia F51.01 [place] [address] [place] [id number] [place] [address] Feb, [place] [address] [address] Jan, Schizoaffective disorder, de pressive type F25.1 and BMI 45.0-49.9, adult Z68.42 [place] [address] [place] [id number] [place] [address] Jan, [place] [address] [place] [id number] [place] [address] Jan, 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, without long-term current use of insulin E11.610 ; Menopausal syndrome (hot flashes) N95.1 and BMI 40.0-44.9, adult Z68.41 [place] [address] [place] [id number] [place] [address] Jan, Paranoid schizophrenia F20.0 [place] [address] [address] Jan, [place] [address] [address] Jan, Schizoaffective disorder, de pressive type F25.1 [place] [address] [place] [id number] [place] [address] Jan, [place] [address] [place] [id number] [place] [address] Jan, Chronic obstructive pulmonar y disease, unspecified COPD type J44.9 ; BMI 45.0-49.9, adult Z68.42 ; Type 2 diabetes mellitus without complication, without long-term current use of insulin E11.9 ; Hypothyroidism (acquired) E03.9 ; Encounter for immunization Z23 ; Gastroesophageal reflux disease without esophagitis K21.9 ; Primary insomnia F51.01 and Acute nasopharyngitis J00 [place] [address] [place] [id number] [place] [address] Dec, [place] [address] [place] [id number] [place] [address] Dec, Schizoaffective disorder, de pressive type F25.1 and BMI 45.0-49.9, adult Z68.42 [facility] [address] [id number] [address] [place] [address] Dec, [facility] [address] [facility] [id number] [address] [place] [address] Dec, [facility] [address] [facility] [id number] [address] [place] [address] Dec, Acute non-recurrent frontal sinusitis J01.10 [facility] [address] [facility] [id number] [address] [place] [address] Dec, Acute non-recurrent frontal sinusitis J01.10 ; Weakness of left leg R29.898 ; At high risk for falls Z91.81 and BMI 45.0-49.9, adult Z68.42 [facility] [address] [facility] [id number] [address] [place] [address] Dec, [facility] [address] [facility] [id number] [address] [place] [address] Dec, [facility] [address] [facility] [id number] [address] [place] [address] Dec, Schizoaffective disorder, de pressive type F25.1 [facility] [address] [facility] [id number] [address] [place] [address] Dec, Acute nasopharyngitis J00 [facility] [address] [id number] [address] [place] [address] Dec, Schizoaffective disorder, de pressive type F25.1 [facility] [address] [id number] [address] [place] [address] Dec, [facility] [address] [facility] [id number] [address] [place] [address] Nov, Schizoaffective disorder, de pressive type F25.1 and BMI 45.0-49.9, adult Z68.42 [place] [address] [facility] [id number] [address] [place] [address] Nov, [place] [address] [facility] [id number] [address] [place] [address] Nov, [place] [address] [facility] [id number] [address] [place] [address] Nov, Schizoaffective disorder, de pressive type F25.1 [place] [address] [facility] [id number] [address] [place] [address] Nov, Well woman exam Z01.419 ; BM I 45.0-49.9, adult Z68.42 ; Screening breast examination Z12.31 and Dietary counseling and surveillance Z71.3 [place] [address] [place] [id number] [address] [place] [address] Nov, Paranoid schizophrenia F20.0 [place] [address] [place] [id number] [address] [place] [address] Nov, Gastroesophageal reflux dise ase, esophagitis presence not specified K21.9 [place] [address] [facility] [id number] [address] [place] [address] Oct, Paranoid schizophrenia F20.0 [place] [address] [id number] [place] [address] Oct, Chronic pain syndrome G89.4 and Schizoaf fective disorder, depressive type F25.1 [place] [address] [place] [id number] [address] [place] [address] Oct, Chronic pain syndrome G89.4 and Schizoaffective disorder, depressive type F25.1 [place] [address] [place] [id number] [address] [place] [address] Oct, Type 2 diabetes mellitus wit hout complication, without long-term current use of insulin E11.9 [place] [address] [place] [id number] [address] [place] [address] Oct, Essential hypertension I10 a nd DM neuro manif type II E11.49 [facility] [address] [facility] [id number] [address] [place] [address] Oct, [facility] [address] [facility] [id number] [address] [place] [address] Oct, Schizoaffective disorder, de pressive type F25.1 and BMI 45.0-49.9, adult Z68.42 [facility] [address] [facility] [id number] [address] [place] [address] Oct, [facility] [address] [facility] [id number] [address] [place] [address] Oct, Paranoid schizophrenia F20.0 [facility] [address] [place] [id number] [address] [place] [address] Oct, 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, without long-term current use of insulin E11.610 ; Essential hypertension I10 ; Hypothyroidism (acquired) E03.9 ; Chronic obstructive pulmonary disease, unspecified COPD type J44.9 and Diabetic polyneuropathy associated with type 2 diabetes mellitus E11.42 [facility] [address] [facility] [id number] [address] [place] [address] Sep, Paranoid schizophrenia F20.0 [facility] [address] [place] [id number] [address] [place] [address] Sep, Paranoid schizophrenia F20.0 and BMI 45.0-49.9, adult Z68.42 [facility] [address] [facility] [id number] [address] [place] [address] Sep, Schizoaffective disorder, de pressive type F25.1 [facility] [address] [facility] [id number] [address] [place] [address] Sep, [facility] [address] [place] [id number] [address] [place] [address] Sep, Paranoid schizophrenia F20.0 [facility] [address] [place] [id number] [address] [place] [address] Sep, [facility] [address] [place] [id number] [address] [place] [address] Sep, Hypothyroidism (acquired) E0 3.9 [facility] [address] [facility] [id number] [address] [place] [address] Sep, [facility] [address] [place] [id number] [place] [address] August, Schizoaffective disorder, de pressive type F25.1 [facility] [address] [place] [id number] [place] [address] August, [facility] [address] [address] August, [facility] [address] [address] August, [facility] [address] [address] August, Paranoid schizophrenia F20.0 [facility] [address] [address] August, History of lupus Z87.39 and Chronic pain syndrome G89.4 [facility] [address] [place] [id number] [address] [place] [address] August, [facility] [address] [place] [id number] [address] [place] [address] August, Seasonal allergic rhinitis, unspecified trigger J30.2 and BMI 45.0-49.9, adult Z68.42 [facility] [address] [place] [id number] [place] [address] Jul, Schizoaffective disorder, de pressive type F25.1 [facility] [address] [place] [id number] [address] [place] [address] Jul, [facility] [address] [address] 13 Jul, 2017 Hypothyroidism (acquired) E0 3.9 [facility] [address] [address] 11 Jul, 2017 Chronic obstructive pulmonar y disease, unspecified COPD type J44.9 and Type 2 diabetes mellitus without complication, without long-term current use of insulin E11.9 [place] [address] [address] Jul, Paranoid schizophrenia F20.0 [place] [address] [address] Jun, Hypothyroidism (acquired) E0 3.9 and Seasonal allergic rhinitis due to pollen J30.1 [facility] [address] [address] Jun, Shortness of breath at rest R06.02 ; COPD exacerbation J44.1 and BMI 45.0-49.9, adult Z68.42 [place] [address] [address] Jun, [place] [address] [address] Jun, Paranoid schizophrenia F20.0 ; Depression with anxiety F41.8 and BMI 45.0-49.9, adult Z68.42 [place] [address] [address] Jun, Schizoaffective disorder, de pressive type F25.1 [facility] [id number] [place] [id number] Jun, Dental caries K02.9 [place] [address] [address] Jun, Paranoid schizophrenia F20.0 [place] [address] [address] May, Migraine without aura and wi thout status migrainosus, not intractable G43.009 ; DM neuro manif type II E11.49 and Type 2 diabetes mellitus without complication, without long-term current use of insulin E11.9 [facility] [address] [place] [id number] [address] [place] [address] May, Migraine without aura and wi thout status migrainosus, not intractable G43.009 [facility] [address] [place] [id number] [address] [place] [address] May, Depression with anxiety F41. 8 [facility] [address] [facility] [id number] [address] [place] [id number] May, [facility] [id number] [place] [address] May, [facility] [address] [place] [id number] [address] [place] [address] May, [facility] [address] [place] [address] May, Hypothyroidism (acquired) E0 3.9 [facility] [address] [address] May, Paranoid schizophrenia F20.0 [facility] [address] [address] May, Type 2 diabetes mellitus wit hout [...] N32.81 and Controlled substance agreement signed Z79.899 [facility] [address] [facility] [id number] [address] [place] [address] May, Controlled substance agreeme nt signed Z79.899 [facility] [address] [facility] [id number] [address] [place] [address] Apr, [facility] [address] [id number] [address] [place] [id number] Apr, Dental examination Z01.20 [facility] [address] [facility] [id number] [address] [place] [address] Apr, Paranoid schizophrenia F20.0 [facility] [address] [facility] [id number] [address] [place] [address] Apr, Hypertension, unspecified ty pe I10 [facility] [address] [facility] [id number] [address] [place] [address] Apr, Paranoid schizophrenia F20.0 [facility] [address] [facility] [id number] [address] [place] [address] Apr, [facility] [address] [facility] [id number] [address] [place] [address] Apr, Tobacco abuse Z72.0 [facility] [address] [facility] [id number] [address] [place] [address] Apr, [facility] [address] [facility] [id number] [address] [place] [address] Mar, [facility] [address] [facility] [id number] [address] [place] [address] Mar, Paranoid schizophrenia F20.0 and BMI 45.0-49.9, adult Z68.42 [facility] [address] [facility] [id number] [address] [place] [address] Mar, Schizoaffective disorder, de pressive type F25.1 [facility] [address] [facility] [id number] [address] [place] [address] 14 Mar, 2017 [facility] [address] [address] Mar, Hypothyroidism, unspecified type E03.9 [facility] [address] [address] Mar, Schizoaffective disorder, de pressive type F25.1 [facility] [address] [address] Feb, Gastroenteritis K52.9 and BM I 45.0-49.9, adult Z68.42 [place] [address] [address] Feb, [facility] [address] [address] Feb, [place] [address] [address] Feb, [facility] [address] [address] 16 Feb, 2017 [place] [address] [address] Feb, Paranoid schizophrenia F20.0 [place] [address] [address] 06 Feb, 2017 Gastroesophageal reflux dise ase without esophagitis K21.9 ; Other seasonal allergic rhinitis J30.2 ; Other allergic rhinitis J30.89 ; Tobacco abuse Z72.0 and BMI 40.0-44.9, adult Z68.41 [facility] [address] [address] Feb, Onychomycosis B35.1 ; Callus of foot L84 and DM neuro manif type II E11.49 [facility] [address] [address] Jan, Chronic allergic rhinitis J3 0.9 [place] [address] [place] [id number] [address] [place] [address] 16 Jan, 2017 [facility] [address] [facility] [id number] [address] [place] [address] Jan, Schizoaffective disorder, de pressive type F25.1 [facility] [address] [facility] [id number] [address] [place] [address] 10 Jan, 2017 [facility] [address] [facility] [id number] [address] [place] [address] 07 Jan, 2017 Sore throat J02.9 and Season al allergic rhinitis due to other allergic trigger J30.89 [facility] [address] [place] [id number] [address] [place] [address] 04 Jan, 2017 [facility] [address] [facility] [id number] [address] [place] [address] Jan, [facility] [address] [place] [id number] [address] [place] [address] Jan, Chronic allergic rhinitis J3 0.9 [facility] [address] [facility] [id number] [address] [place] [address] 27 Dec, 2016 Paranoid schizophrenia F20.0 ; Primary insomnia F51.01 and Schizoaffective disorder, depressive type F25.1 [facility] [address] [place] [id number] [address] [place] [address] 21 Dec, 2016 Chronic pain syndrome G89.4 ; Cervicalgia of [place] region M54.2 ; Menopausal syndrome (hot flashes) N95.1 and Encounter for immunization Z23 [facility] [address] [facility] [id number] [address] [place] [address] 14 Dec, 2016 [place] [address] [place] [id number] [address] [place] [address] 13 Dec, 2016 [facility] [address] [place] [id number] [address] [place] [address] 08 Dec, 2016 Paranoid schizophrenia F20.0 [place] [address] [facility] [id number] [address] [place] [address] Dec, Schizoaffective disorder, de pressive type F25.1 [facility] [address] [facility] [id number] [address] [place] [address] Nov, Hypothyroidism, unspecified type E03.9 [facility] [address] [facility] [id number] [address] [place] [address] Nov, Acute seasonal allergic rhin itis due to other allergen J30.89 [facility] [address] [facility] [id number] [address] [place] [address] Nov, [facility] [address] [facility] [id number] [address] [place] [address] Nov, Hypothyroidism, unspecified type E03.9 and Other elevated white blood cell (WBC) count D72.828 [place] [address] [place] [id number] [address] [place] [address] Nov, Schizoaffective disorder, de pressive type F25.1 [place] [address] [facility] [id number] [address] [place] [address] Nov, Paranoid schizophrenia F20.0 [place] [address] [place] [id number] [address] [place] [address] Nov, Type 2 diabetes mellitus wit hout complication, without long-term current use of insulin E11.9 ; Morbid obesity due to excess calories E66.01 and Chronic pain syndrome G89.4 [facility] [address] [facility] [id number] [address] [place] [address] Oct, Paranoid schizophrenia F20.0 [place] [address] [facility] [id number] [address] [place] [address] Oct, [place] [address] [facility] [id number] [address] [place] [address] Oct, Schizoaffective disorder, de pressive type F25.1 [place] [address] [facility] [id number] [address] [place] [address] Oct, Hypothyroidism, unspecified type E03.9 and Other elevated white blood cell (WBC) count D72.828 [facility] [address] [facility] [id number] [address] [place] [address] Oct, Morbid obesity due to excess calories E66.01 ; Chronic obstructive pulmonary disease, unspecified COPD type J44.9 ; History of lupus Z87.39 ; Hypothyroidism, unspecified type E03.9 ; Gastroesophageal reflux disease without esophagitis K21.9 ; Primary insomnia F51.01 and Chronic pain syndrome G89.4 [place] [address] [facility] [id number] [address] [place] [address] Sep, [place] [address] [facility] [id number] [address] [place] [address] Sep, [place] [address] [facility] [id number] [address] [place] [address] Sep, [facility] [address] [facility] [id number] [address] [place] [address] Sep, Paranoid schizophrenia F20.0 [place] [address] [facility] [id number] [address] [place] [address] Sep, [facility] [address] [facility] [id number] [address] [place] [address] Sep, Paranoid schizophrenia F20.0 [facility] [address] [facility] [id number] [address] [place] [address] Sep, [facility] [address] [facility] [id number] [address] [place] [address] August, Paranoid schizophrenia F20.0 [facility] [address] [facility] [id number] [address] [place] [address] Jul, [facility] [address] [facility] [id number] [address] [place] [address] Jul, Type 2 diabetes mellitus wit hout complication, without long-term current use of insulin E11.9 ; Morbid obesity due to excess calories E66.01 ; Depression with anxiety F41.8 ; Hypothyroidism, unspecified type E03.9 ; Seasonal allergic rhinitis due to other allergic trigger J30.89 ; Pain, dental K08.89 and Gastroesophageal reflux disease without esophagitis K21.9 [facility] [address] [facility] [id number] [address] [place] [id number] 12 Jul, 2016 Dental examination Z01.20 [place] [address] [address] 07 Jul, 2016 Paranoid schizophrenia F20.[address] [address] 13 Jun, 2016 Paranoid schizophrenia F20.0 and Depression with anxiety F41.8 [place] [address] [address] 10 Jun, 2016 Paranoid schizophrenia F20.0 and Depression with anxiety F41.8 [place] [address] [address] 09 Jun, 2016 [place] [address] [address] Jun, [facility] [address] [address] Jun, Seasonal allergic rhinitis d ue to other allergic trigger J30.89 [facility] [address] [address] May, Sore throat J02.9 ; Other vi ral agents as the cause of diseases classified elsewhere B97.89 and Acute upper respiratory infection, unspecified J06.[address] [address] May, Paranoid schizophrenia F20.0 and Depression with anxiety F41.8 [place] [address] [address] Apr, Other seasonal allergic rhin itis J30.2 [facility] [address] [address] Apr, Paranoid schizophrenia F20.0 and Depression with anxiety F41.8 [facility] [address] [place] [id number] [place] [address] Apr, Bronchitis J40 and Sore thro at J02.9 [place] [address] [address] Apr, Type 2 diabetes mellitus wit hout complication, without long-term current use of insulin E11.9 [facility] [address] [address] Apr, Bronchitis J40 [place] [address] [address] Apr, [place] [address] [address] Apr, [place] [address] [address] Mar, Type 2 diabetes mellitus wit hout [...] R60.9 and Other seasonal allergic rhinitis J30.2 [place] [address] [address] Mar, Paranoid schizophrenia F20.0 and Depression with anxiety F41.8 [place] [address] [place] [id number] [place] [address] Feb, [facility] [address] [address] Feb, [facility] [address] [id number] [address] [place] [address] Feb, [facility] [address] [id number] [address] [place] [address] Feb, [facility] [address] [id number] [address] [place] [address] Feb, Type 2 diabetes mellitus wit hout complication, without long-term current use of insulin E11.9 ; ARIAS on CPAP G47.33 and Preoperative evaluation to rule out surgical contraindication Z01.818 [facility] [address] [id number] [address] [place] [address] 09 Feb, 2016 Paranoid schizophrenia F20.0 and Depression with anxiety F41.8 [facility] [address] [id number] [address] [place] [address] Jan, [facility] [address] [id number] [address] [place] [address] Jan, Paranoid schizophrenia F20.0 and Depression with anxiety F41.8 [facility] [address] [id number] [address] [place] [address] Jan, [facility] [address] [id number] [address] [place] [address] Jan, Muscle strain T14.8 [facility] [address] [id number] [address] [place] [address] Jan, Paranoid schizophrenia F20.0 [facility] [address] [id number] [address] [place] [address] Jan, [facility] [address] [id number] [address] [place] [address] Jan, Paranoid schizophrenia F20.0 and Depression with anxiety F41.8 [facility] [address] [id number] [address] [place] [address] Jan, [facility] [address] [id number] [address] [place] [address] Jan, [facility] [address] [id number] [address] [place] [address] Dec, [facility] [address] [id number] [address] [place] [address] Dec, Paranoid schizophrenia F20.0 [facility] [address] [id number] [address] [place] [address] 16 Dec, 2015 Paranoid schizophrenia F20.0 and Depression with anxiety F41.8 [facility] [address] [id number] [address] [place] [address] Nov, [facility] [address] [id number] [address] [place] [address] Nov, Paranoid schizophrenia F20.0 [facility] [address] [id number] [address] [place] [address] Nov, Paranoid schizophrenia F20.0 and Depression with anxiety F41.8 [facility] [address] [id number] [address] [place] [address] 05 Nov, 2015 Type 2 diabetes mellitus wit hout complication, without long-term current use of insulin E11.9 ; Paranoid schizophrenia F20.0 ; Chronic obstructive pulmonary disease, unspecified COPD type J44.9 ; Morbid obesity due to excess calories E66.01 and Parkinsonian tremor G20 [facility] [address] [id number] [address] [place] [address] Nov, [facility] [address] [id number] [address] [place] [address] Oct, Paranoid schizophrenia F20.0 [facility] [address] [id number] [address] [place] [address] Oct, Paranoid schizophrenia F20.0 [facility] [address] [id number] [address] [place] [address] Oct, Paranoid schizophrenia F20.0 and Depression with anxiety F41.8 [place] [address] [address] Oct, [place] [address] [address] Oct, Paranoid schizophrenia F20.0 and Depression with anxiety F41.[address] [address] Oct, Nasal sore J34.89 [place] [address] [address] Oct, Type 2 diabetes mellitus wit hout complication, without long-term current use of insulin E11.9 ; Depression with anxiety F41.8 ; Hypothyroidism, unspecified type E03.9 and History of lupus Z87.[address] [address] Oct, [place] [address] [address] Oct, Type 2 diabetes mellitus wit hout [...] edema R60.9 and History of lupus Z87.39 [place] [address] [address] Feb, [place] [address] [address] Jan, [place] [address] [address] Jan, [facility] [address] [id number] [address] [place] [address], [place] [address] Jan, [facility] [address] [id number] [address] [place] [address], [place] [address] Dec, [facility] [address] [id number] [address] [place] [address], [place] [address] Nov, [facility] [address] [id number] [address] [place] [address], [place] [address] Nov, [facility] [address] [id number] [address] [place] [address], [place] [address] Oct, [facility] [address] [id number] [address] [place] [address], [place] [address] Oct, [facility] [address] [id number] [address] [place] [address], [place] [address] Oct, [facility] [address] [id number] [address] [place] [address] Sep, Allergic rhinitis 477.9 [facility] [address] [id number] [address] [place] [address] Sep, Rhinitis, allergic 477.9 [facility] [address] [id number] [address] [place] [address] Sep, Rhinitis, allergic 477.9 [facility] [address] [id number] [address] [place] [address] Sep, [facility] [address] [id number] [address] [place] [address] August, [facility] [address] [id number] [address] [place] [address] August, [facility] [address] [id number] [address] [place] [address] August, [facility] [address] [id number] [address] [place] [address] Jul, [facility] [address] [id number] [address] [place] [address], [place] [address] 14 Jul, 2014 [facility] [address] [id number] [address] [place] [address], [place] [address] 13 Jul, 2014 [facility] [address] [id number] [address] [place] [address], [place] [address] 16 Jun, 2014 [facility] [address] [id number] [address] [place] [address], [place] [address] 16 Jun, 2014 [facility] [address] [id number] [address] [place] [address], [place] [address] Jun, [facility] [address] [id number] [address] [place] [address], [place] [address] Jun, [facility] [address] [id number] [address] [place] [address], [place] [address] Jun, [facility] [address] [id number] [address] [place] [address], [place] [address] Jun, [facility] [address] [id number] [address] [place] [address], [place] [address] Jun, [facility] [address] [id number] [address] [place] [address], [place] [address] Jun, [facility] [address] [id number] [address] [place] [address], [place] [address] May, [facility] [address] [id number] [address] [place] [address], [place] [address] May, [facility] [address] [id number] [address] [place] [address], [place] [address] May, [facility] [address] [id number] [address] [place] [address], [place] [address] May, [facility] [address] [id number] [address] [place] [address], [place] [address] Apr, [facility] [address] [id number] [address] [place] [address] Mar, [facility] [address] [id number] [address] [place] [address], [place] [address] Mar, [facility] [address] [id number] [address] [place] [address], [place] [address] Mar, [facility] [address] [id number] [address] [place] [address], [place] [address] Mar, [facility] [address] [id number] [address] [place] [address], [place] [address] Mar, [facility] [address] [id number] [address] [place] [address], [place] [address] Mar, [facility] [address] [id number] [address] [place] [address], [place] [address] Mar, [facility] [address] [id number] [address] [place] [address], [place] [address] Mar, [facility] [address] [id number] [address] [place] [address], [place] [address] Mar, [facility] [address] [id number] [address] [place] [address], [place] [address] Feb, [facility] [address] [id number] [address] [place] [address], [place] [address] Feb, [facility] [address] [id number] [address] [place] [address], [place] [address] Feb, [facility] [address] [id number] [address] [place] [address], [place] [address] 17 Feb, 2014 [facility] [address] [id number] [address] [place] [address], [place] [address] 14 Feb, 2014 [facility] [address] [id number] [address] [place] [address], [place] [address] 14 Feb, 2014 [facility] [address] [id number] [address] [place] [address], [place] [address] 12 Feb, 2014 [facility] [address] [id number] [address] [place] [address], [place] [address] 12 Feb, 2014 [facility] [address] [id number] [address] [place] [address], [place] [address] 23 Jan, 2014 [facility] [address] [id number] [address] [place] [address], [place] [address] 23 Jan, 2014 [facility] [address] [id number] [address] [place] [address], [place] [address] 16 Jan, 2014 [facility] [address] [id number] [address] [place] [address], [place] [address] 16 Jan, 2014 [facility] [address] [id number] [address] [place] [address], [place] [address] 15 Jan, 2014 [facility] [address] [id number] [address] [place] [address], [place] [address] 15 Jan, 2014 [facility] [address] [id number] [address] [place] [address], [place] [address] 14 Jan, 2014 [facility] [address] [id number] [address] [place] [address], [place] [address] 14 Jan, 2014 [facility] [address] [id number] [address] [place] [address], [place] [address] 14 Jan, 2014 [facility] [address] [id number] [address] [place] [address], [place] [address] 14 Jan, 2014 [facility] [address] [id number] [address] [place] [address], [place] [address] 18 Dec, 2013 [facility] [address] [id number] [address] [place] [address], [place] [address] 18 Dec, 2013 [facility] [address] [id number] [address] [place] [address], [place] [address] 10 Dec, 2013 [facility] [address] [id number] [address] [place] [address], [place] [address] 10 Dec, 2013 [facility] [address] [id number] [address] [place] [address], [place] [address] Nov, [facility] [address] [id number] [facility] [place] [address] Nov, [facility] [address] [id number] [address] [place] [address], [place] [address] Nov, [facility] [address] [id number] [address] [place] [address], [place] [address] Nov, [facility] [address] [id number] [address] [place] [address], [place] [address] Nov, [facility] [address] [id number] [address] [place] [address], [place] [address] Oct, [facility] [address] [id number] [address] [place] [address], [place] [address] Oct, [facility] [address] [id number] [address] [place] [address], [place] [address] Oct, [facility] [address] [id number] [address] [place] [address], [place] [address] Oct, [facility] [address] [id number] [address] [place] [address], [place] [address] Sep, [facility] [address] [id number] [address] [place] [address], [place] [address] Sep, [facility] [address] [id number] [address] [place] [address], [place] [address] Sep, [facility] [address] [id number] [address] [place] [address], [place] [address] Sep, [facility] [address] [id number] [address] [place] [address], [place] [address] Sep, [facility] [address] [id number] [address] [place] [address], [place] [address] Sep, [facility] [address] [id number] [address] [place] [address], [place] [address] Sep, [facility] [address] [id number] [address] [place] [address], [place] [address] Sep, [facility] [address] [id number] [address] [place] [address], [place] [address] August, [facility] [address] [id number] [address] [place] [address], [place] [address] August, [facility] [address] [id number] [address] [place] [address], [place] [address] August, [facility] [address] [id number] [address] [place] [address], [place] [address] August, [facility] [address] [id number] [address] [place] [address], [place] [address] August, [facility] [address] [id number] [address] [place] [address], [place] [address] August, [facility] [address] [id number] [address] [place] [address], [place] [address] August, [facility] [address] [id number] [address] [place] [address], [place] [address] Jul, [facility] [address] [id number] [address] [place] [address], [place] [address] Jul, [facility] [address] [id number] [address] [place] [address], [place] [address] Jul, [facility] [address] [id number] [address] [place] [address], [place] [address] Jul, [facility] [address] [id number] [address] [place] [address], [place] [address] Jul, [facility] [address] [id number] [address] [place] [address], [place] [address] Jul, [facility] [address] [id number] [address] [place] [address], [place] [address] Jul, [facility] [address] [id number] [address] [place] [address], [place] [address] Jul, [facility] [address] [id number] [address] [place] [address], [place] [address] Jul, [facility] [address] [id number] [address] [place] [address], [place] [address] Jul, [facility] [address] [id number] [address] [place] [address], [place] [address] Jul, [facility] [address] [id number] [address] [place] [address], [place] [address] Jul, [facility] [address] [id number] [address] [place] [address], [place] [address] Jun, [facility] [address] [id number] [address] [place] [address], [place] [address] Jun, [facility] [address] [id number] [address] [place] [address], [place] [address] Jun, [facility] [address] [id number] [address] [place] [address], [place] [address] Jun, [facility] [address] [id number] [address] [place] [address], [place] [address] Jun, [facility] [address] [id number] [address] [place] [address], [place] [address] May, [facility] [address] [id number] [address] [place] [address], [place] [address] May, [facility] [address] [id number] [address] [place] [address], [place] [address] May, [facility] [address] [id number] [address] [place] [address], [place] [address] May, [facility] [address] [id number] [address] [place] [address], [place] [address] May, [facility] [address] [id number] [address] [place] [address], [place] [address] May, [facility] [address] [id number] [address] [place] [address], [place] [address] May, [facility] [address] [id number] [address] [place] [address], [place] [address] May, [facility] [address] [id number] [address] [place] [address], [place] [address] Mar, [facility] [address] [id number] [address] [place] [address], [place] [address] Mar, [facility] [address] [id number] [address] [place] [address], [place] [address] Mar, [facility] [address] [id number] [address] [place] [address], [place] [address] Mar, [facility] [address] [id number] [address] [place] [address], [place] [address] Mar, [facility] [address] [id number] [address] [place] [address], [place] [address] Mar, [facility] [address] [id number] [address] [place] [address], [place] [address] Feb, [facility] [address] [id number] [address] [place] [address], [place] [address] Feb, [facility] [address] [id number] [address] [place] [address], [place] [address] Jan, [facility] [address] [id number] [address] [place] [address], [place] [address] Jan, [facility] [address] [id number] [address] [place] [address] Jan, [facility] [address] [id number] [address] [place] [address], [place] [address] Jan, [facility] [address] [id number] [address] [place] [address], [place] [address] Jan, [facility] [address] [id number] [address] [place] [address] Jan, [facility] [address] [id number] [address] [place] [address], [place] [address] Jan, [facility] [address] [id number] [address] [place] [address], [place] [address] Jan, [facility] [address] [id number] [address] [place] [address], [place] [address] Jan, [facility] [address] [id number] [address] [place] [address], [place] [address] Jan, [facility] [address] [id number] [address] [place] [address], [place] [address] Dec, [facility] [address] [id number] [address] [place] [address], [place] [address] Nov, [facility] [address] [id number] [address] [place] [address], [place] [address] Nov, [facility] [address] [id number] [address] [place] [address], [place] [address] Nov, [facility] [address] [id number] [address] [place] [address], [place] [address] Oct, [facility] [address] [id number] [address] [place] [address], [place] [address] Oct, [facility] [address] [id number] [address] [place] [address], [place] [address] August, [facility] [address] [id number] [address] [place] [address], [place] [address] Apr, [facility] [address] [id number] [address] [place] [address], [place] [address] Apr, [facility] [address] [id number] [address] [place] [address], [place] [address] Feb, [facility] [address] [id number] [address] [place] [address], [place] [address] Feb, [facility] [address] [id number] [address] [address] Dec, [facility] [address] [facility] [id number] [address] [place] [address] Dec, [facility] [address] [facility] [id number] [address] [place] [address] Oct, [facility] [address] [facility] [id number] [address] [place] [address] Oct, [facility] [address] [facility] [id number] [address] [place] [address] Oct, [facility] [address] [facility] [id number] [address] [place] [address] Jul, IMMUNIZATIONS No Known Immunizations SOCIAL HISTORY Never Assessed REASON FOR VISIT DM ED PLAN OF CARE VITAL SIGNS MEDICATIONS Unknown [...] psychosis/mental illness, last one in [facility] 4 years ago Hospitalization History broken ankle 08/2018
--- OUTSIDE RECORDS SUMMARY | 2019-07-07 04:45 | XMS REPORT ---
Author Author Alayna ARROYO Organization [facility] Address [address] [place] [address] Care Team Providers Care Book Salesman Name Role Phone ELVER ARROYO Unavailable PROBLEMS Type Condition ICD9-CM Code ZKM22-JG Code Onset Dates Condition S tatus SNOMED Code Problem Depression with anxiety F41.8 Active 834431062 Problem Morbid obesity due to excess calories E66.01 Active 972330522 Problem Chronic obstructive pulmonary disease, unspecified COPD ty pe J44.9 Active 40726549 Problem Paranoid schizophrenia F20.0 Active 27725489 Problem Chronic pain syndrome G89.4 Active 456671450 Problem History of lupus Z87.39 Active 312 962713 Problem Type 2 diabetes mellitus wit hout complication, without long-term current use of insulin E11.9 Active 005621100 Problem Dyslipidemia E78.5 Active 9000949 07 Problem Migraine without aura and without status migrain osus, not intractable G43.009 Active 030798528 Problem Primary insomnia F51.01 Active 397 2004 Problem Schizoaffective disorder, depressive type F25.1 Active 46210724 Problem Menopausal syndrome (hot flashes) N95.1 Active 119146905 Problem DM neuro manif type II E11.49 Active 22291314 Problem Other seasonal allergic rhinitis J30.2 Active 872569341 Problem Other allergic rhinitis J30.89 Active 496195010 Problem Gastroesophageal reflux disease, esophagitis pre sence not specified K21.9 Active 692176852 Problem Tobacco abuse Z72.0 Active 550427 000 Problem Essential hypertension I10 Active 83326622 Problem Hypothyroidism (acquired) E03.9 Acti ve 195617782 Problem COPD exacerbation J44.1 Active 19 4635929 Problem Allergic rhinitis, unspecified seasonality, unspecifie d trigger J30.9 Active 98731508 Problem Gastroesophageal reflux disease without esophagitis K21.9 Active 466128849 Problem Constipation by delayed colonic transit K59.01 Active 43964246 Problem OAB (overactive bladder) N32.81 Activ e 397210343 Problem Seasonal allergic rhinitis due to other allergic trigger J30.89 Active 953406672 Problem Seasonal allergic rhinitis due to pollen J30.1 Active 17225697 Problem 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, without long-term current use of insulin E11.610 Active 257571067 Problem Diabetic polyneuropathy associated with type 2 d iabetes mellitus E11.42 Active 016544926 Problem Cigarette nicotine dependence without complication F17.210 Active 63569030 ALLERGIES No Information ENCOUNTERS Encounter Location Date Diagnosis [place] [address] [address] Dec, [place] [address] [address] Oct, [place] [address] [address] Oct, Chronic obstructive pulmonar y disease, unspecified COPD type J44.9 [place] [address] [address] Oct, [place] [address] [address] Sep, Paranoid schizophrenia F20.0 [place] [address] [address] Sep, [place] [address] [address] Sep, [place] [address] [address] Sep, Encounter for immunization Z 23 [place] [address] [address] Sep, [place] [address] [address] Sep, Closed fracture of right ank le, sequela S82.891S ; Morbid obesity E66.01 and Heat rash L74.0 [place] [address] [id number] [address] [place] [phone] Sep, Schizoaffective disorder, de pressive type F25.1 [facility] [address] [id number] [address] [place] [address], [place] [address] 18 Sep, 2018 [facility] [address] [id number] [address] [place] [address], [place] [address] Sep, [facility] [address] [id number] [address] [place] [address] Sep, [facility] [address] [id number] [address] [place] [address], [place] [address] Sep, [facility] [address] [id number] [address] [place] [phone] Sep, [facility] [address] [id number] [address] [place] [address] Sep, [facility] [address] [id number] [address] [place] [address] Sep, [facility] [address] [id number] [address] [place] [phone] Sep, [facility] [address] [id number] [address] [place] [address] Sep, [facility] [address] [id number] [address] [place] [address] August, Paranoid schizophrenia F20.0 [facility] [address] [id number] [address] [place] [address] August, [facility] [address] [id number] [address] [place] [address] August, [facility] [address] [id number] [address] [place] [address] August, [facility] [address] [id number] [address] [place] [address] August, Type 2 diabetes mellitus wit hout complication, without long-term current use of insulin E11.9 ; Closed fracture of right ankle, initial encounter S82.891A ; Constipation by delayed colonic transit K59.01 ; Osteoporosis with pathological fracture, initial encounter M80.00XA and Encounter for immunization Z23 [facility] [address] [facility] [id number] [address] [place] [address] August, [facility] [address] [facility] [id number] [address] [place] [address] August, [facility] [address] [facility] [id number] [address] [place] [address] August, Acquired deformity of muscul oskeletal system, unspecified M95.9 [facility] [address] [place] [id number] [address] [place] [address] August, Paranoid schizophrenia F20.0 [facility] [address] [place] [id number] [address] [address] August, [facility] [address] [facility] [id number] [address] [place] [address] Jul, [facility] [address] [place] [id number] [address] [place] [address] Jul, Diabetic polyneuropathy asso ciated with type 2 diabetes mellitus E11.42 ; Paranoid schizophrenia F20.0 ; Preoperative clearance Z01.818 and Morbid obesity E66.01 [facility] [address] [facility] [id number] [address] [place] [address] Jul, Paranoid schizophrenia F20.0 [facility] [address] [facility] [id number] [address] [place] [address] Jul, [facility] [address] [place] [id number] [address] [place] [address] Jul, [facility] [address] [place] [id number] [address] [place] [address] Jul, Cigarette nicotine dependenc e without complication F17.210 [facility] [address] [place] [id number] [address] [place] [address] Jul, Type 2 diabetes mellitus wit hout complication, without long-term current use of insulin E11.9 and Hypothyroidism (acquired) E03.9 [place] [id number] [place] [address] Jul, [facility] Z[facility].00 ; Morbid obesity due to excess calories E66.01 ; Diabetic polyneuropathy associated with type 2 diabetes mellitus E11.42 ; Chronic obstructive pulmonary disease, unspecified COPD type J44.9 ; Schizoaffective disorder, depressive type F25.1 ; Hypothyroidism (acquired) E03.9 and Morbid obesity E66.01 [place] [address] [facility] [id number] [address] [place] [address] Jun, Gastroesophageal reflux dise ase without esophagitis K21.9 [place] [address] [address] Jun, Paranoid schizophrenia F20.0 [place] [address] [place] [id number] [address] [place] [address] Jun, Schizoaffective disorder, de pressive type F25.1 [place] [address] [place] [id number] [address] [place] [phone] Jun, [place] [address] [place] [id number] [address] [place] [address] Jun, Schizoaffective disorder, de pressive type F25.1 [place] [address] [place] [id number] [address] [place] [address] Jun, Cigarette nicotine dependenc e without complication F17.210 [place] [address] [place] [id number] [address] [place] [phone] 18 Jun, 2018 Type 2 diabetes mellitus wit hout complication, without long-term current use of insulin E11.9 [place] [address] [place] [id number] [address] [place] [address] 15 Jun, 2018 [place] [id number] [place] [address] Jun, [facility] [address] [address] Jun, [facility] [address] [place] [id number] [address] [place] [address] Jun, [facility] [address] [address] Jun, [facility] [address] [place] [id number] [place] [address] 06 Jun, 2018 Paranoid schizophrenia F20.0 ; Type 2 diabetes mellitus without complication, without long-term current use of insulin E11.9 ; Hypothyroidism (acquired) E03.9 and Morbid obesity E66.01 [place] [address] [address] 28 May, 2018 Paranoid schizophrenia F20.0 [place] [address] [address] 20 May, 2018 Hypothyroidism (acquired) E0 3.9 and Dyslipidemia E78.5 [place] [address] [address] 19 May, 2018 Cigarette nicotine dependenc e without complication F17.210 [place] [address] [address] 18 May, 2018 [facility] [address] [address] 14 May, 2018 Type 2 diabetes mellitus wit hout complication, without long-term current use of insulin E11.9 ; Essential hypertension I10 ; Hypothyroidism (acquired) E03.9 and Dyslipidemia E78.5 [facility] [address] [place] [id number] [address] [place] [phone] 13 May, 2018 [place] [address] [address] May, Schizoaffective disorder, de pressive type F25.1 [facility] [address] [place] [id number] [address] [place] [address] May, Paranoid schizophrenia F20.0 [facility] [address] [place] [id number] [address] [place] [address] 07 May, 2018 [facility] [place] [address] [place] [address] 07 May, 20 19 [facility] [address] [address] May, [place] [address] [address] May, Type 2 diabetes mellitus wit hout complication, without long-term current use of insulin E11.9 ; Essential hypertension I10 ; Hypothyroidism (acquired) E03.9 and Dyslipidemia E78.5 [place] [address] [place] [id number] [address] [place] [address] May, [facility] [address] [address] May, Acute nasopharyngitis J00 [facility] [address] [place] [id number] [address] [place] [address] 04 May, 2018 Allergic rhinitis, unspecifi ed seasonality, unspecified trigger J30.9 [facility] [address] [place] [id number] [address] [place] [address] May, [facility] [address] [place] [id number] [address] [place] [address] Apr, Schizoaffective disorder, de pressive type F25.1 [place] [address] [place] [id number] [address] [place] [address] Apr, [facility] [address] [place] [id number] [address] [place] [address] Apr, Cigarette nicotine dependenc e without complication F17.210 [facility] [address] [place] [id number] [address] [place] [address] 17 Apr, 2018 [facility] [address] [place] [id number] [place] [address] 15 Apr, 2018 Cigarette nicotine dependenc e without complication F17.210 [facility] [address] [place] [id number] [address] [place] [address] 10 Apr, 2018 [facility] [address] [place] [id number] [place] [address] Apr, Migraine without aura and wi thout status migrainosus, not intractable G43.009 [place] [address] [place] [id number] [place] [address] Apr, Migraine without aura and wi thout status migrainosus, not intractable G43.009 [place] [address] [address] Mar, Schizoaffective disorder, de pressive type F25.1 ; BMI 45.0-49.9, adult Z68.42 and BMI 40.0-44.9, adult Z68.41 [place] [address] [address] Mar, Primary insomnia F51.01 [place] [address] [address] Mar, [place] [address] [address] Feb, Primary insomnia F51.01 [place] [address] [place] [id number] [place] [phone] Feb, [place] [address] [place] [id number] [place] [address] Jan, Schizoaffective disorder, de pressive type F25.1 and BMI 45.0-49.9, adult Z68.42 [place] [address] [address] Jan, [place] [address] [place] [id number] [place] [address] 16 Jan, 2018 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, without long-term current use of insulin E11.610 ; Menopausal syndrome (hot flashes) N95.1 and BMI 40.0-44.9, adult Z68.41 [place] [address] [address] 11 Jan, 2018 Paranoid schizophrenia F20.0 [place] [address] [place] [id number] [place] [address] Jan, [place] [address] [address] Jan, Schizoaffective disorder, de pressive type F25.1 [place] [address] [address] Jan, [place] [address] [address] Jan, Chronic obstructive pulmonar y disease, unspecified COPD type J44.9 ; BMI 45.0-49.9, adult Z68.42 ; Type 2 diabetes mellitus without complication, without long-term current use of insulin E11.9 ; Hypothyroidism (acquired) E03.9 ; Encounter for immunization Z23 ; Gastroesophageal reflux disease without esophagitis K21.9 ; Primary insomnia F51.01 and Acute nasopharyngitis J00 [place] [address] [address] Dec, [place] [address] [address] Dec, Schizoaffective disorder, de pressive type F25.1 and BMI 45.0-49.9, adult Z68.42 [place] [address] [address] Dec, [place] [address] [id number] [address] [place] [phone] Dec, [facility] [address] [id number] [address] [place] [id number] 18 Dec, 2017 Acute non-recurrent frontal sinusitis J01.10 [facility] [address] [id number] [address] [place] [address] 18 Dec, 2017 Acute non-recurrent frontal sinusitis J01.10 ; Weakness of left leg R29.898 ; At high risk for falls Z91.81 and BMI 45.0-49.9, adult Z68.42 [facility] [address] [id number] [address] [place] [address] Dec, [facility] [address] [id number] [address] [place] [phone] Dec, [facility] [address] [facility] [id number] [address] [place] [address] Dec, Schizoaffective disorder, de pressive type F25.1 [facility] [address] [id number] [address] [place] [address] Dec, Acute nasopharyngitis J00 [facility] [address] [id number] [address] [place] [phone] 05 Dec, 2017 Schizoaffective disorder, de pressive type F25.1 [facility] [address] [id number] [address] [place] [phone] Dec, [facility] [address] [id number] [address] [place] [address] Nov, Schizoaffective disorder, de pressive type F25.1 and BMI 45.0-49.9, adult Z68.42 [facility] [address] [id number] [address] [place] [address] Nov, [facility] [address] [facility] [id number] [address] [place] [phone] Nov, [place] [address] [place] [id number] [address] [place] [address] Nov, Schizoaffective disorder, de pressive type F25.1 [place] [address] [place] [id number] [address] [place] [address] Nov, Well woman exam Z01.419 ; BM I 45.0-49.9, adult Z68.42 ; Screening breast examination Z12.31 and Dietary counseling and surveillance Z71.3 [place] [address] [place] [id number] [address] [place] [address] Nov, Paranoid schizophrenia F20.0 [place] [address] [address] Nov, Gastroesophageal reflux dise ase, esophagitis presence not specified K21.9 [place] [address] [place] [id number] [address] [place] [address] Oct, Paranoid schizophrenia F20.0 [facility] [id number] [place] [address] Oct, Chronic pain syndrome G89.4 and Schizoaf fective disorder, depressive type F25.1 [place] [address] [place] [id number] [address] [place] [address] Oct, Chronic pain syndrome G89.4 and Schizoaffective disorder, depressive type F25.1 [place] [address] [place] [id number] [address] [place] [address] 16 Oct, 2017 Type 2 diabetes mellitus wit hout complication, without long-term current use of insulin E11.9 [place] [address] [place] [id number] [address] [place] [address] 12 Oct, 2017 Essential hypertension I10 a nd DM neuro manif type II E11.49 [place] [address] [place] [id number] [address] [place] [address] 11 Oct, 2017 [place] [address] [place] [id number] [address] [place] [address] Oct, Schizoaffective disorder, de pressive type F25.1 and BMI 45.0-49.9, adult Z68.42 [facility] [address] [facility] [id number] [address] [place] [address] Oct, [facility] [address] [facility] [id number] [address] [place] [phone] Oct, Paranoid schizophrenia F20.0 [facility] [address] [facility] [id number] [address] [place] [address] Oct, 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, without long-term current use of insulin E11.610 ; Essential hypertension I10 ; Hypothyroidism (acquired) E03.9 ; Chronic obstructive pulmonary disease, unspecified COPD type J44.9 and Diabetic polyneuropathy associated with type 2 diabetes mellitus E11.42 [facility] [address] [facility] [id number] [address] [place] [address] Sep, Paranoid schizophrenia F20.0 [facility] [address] [facility] [id number] [address] [place] [address] Sep, Paranoid schizophrenia F20.0 and BMI 45.0-49.9, adult Z68.42 [facility] [address] [facility] [id number] [address] [place] [address] Sep, Schizoaffective disorder, de pressive type F25.1 [facility] [address] [facility] [id number] [address] [place] [address] Sep, [facility] [address] [facility] [id number] [address] [place] [id number] Sep, Paranoid schizophrenia F20.0 [facility] [address] [facility] [id number] [address] [place] [address] Sep, [facility] [address] [facility] [id number] [address] [place] [phone] 06 Sep, 2017 Hypothyroidism (acquired) E0 3.9 [facility] [address] [facility] [id number] [address] [place] [address] Sep, [facility] [address] [facility] [id number] [address] [place] [phone] August, Schizoaffective disorder, de pressive type F25.1 [facility] [address] [facility] [id number] [address] [place] [address] August, [facility] [address] [facility] [id number] [address] [place] [phone] August, [facility] [address] [facility] [id number] [address] [place] [address] August, [facility] [address] [facility] [id number] [address] [place] [address] August, Paranoid schizophrenia F20.0 [facility] [address] [facility] [id number] [address] [place] [id number] August, History of lupus Z87.39 and Chronic pain syndrome G89.4 [facility] [address] [facility] [id number] [address] [place] [address] August, [facility] [address] [place] [id number] [address] [place] [address] August, Seasonal allergic rhinitis, unspecified trigger J30.2 and BMI 45.0-49.9, adult Z68.42 [facility] [address] [place] [id number] [address] [place] [address] Jul, Schizoaffective disorder, de pressive type F25.1 [facility] [address] [facility] [id number] [address] [place] [id number] Jul, [facility] [address] [place] [id number] [address] [place] [phone] Jul, Hypothyroidism (acquired) E0 3.9 [facility] [address] [facility] [id number] [address] [place] [id number] Jul, Chronic obstructive pulmonar y disease, unspecified COPD type J44.9 and Type 2 diabetes mellitus without complication, without long-term current use of insulin E11.9 [facility] [address] [address] Jul, Paranoid schizophrenia F20.0 [facility] [address] [address] Jun, Hypothyroidism (acquired) E0 3.9 and Seasonal allergic rhinitis due to pollen J30.1 [facility] [address] [address] Jun, Shortness of breath at rest R06.02 ; COPD exacerbation J44.1 and BMI 45.0-49.9, adult Z68.42 [facility] [address] [address] Jun, [facility] [address] [address] Jun, Paranoid schizophrenia F20.0 ; Depression with anxiety F41.8 and BMI 45.0-49.9, adult Z68.42 [facility] [address] [address] Jun, Schizoaffective disorder, de pressive type F25.1 [facility] [id number] [place] [id number] Jun, Dental caries K02.9 [facility] [address] [address] Jun, Paranoid schizophrenia F20.0 [facility] [address] [address] May, Migraine without aura and wi thout status migrainosus, not intractable G43.009 ; DM neuro manif type II E11.49 and Type 2 diabetes mellitus without complication, without long-term current use of insulin E11.9 [facility] [address] [address] May, Migraine without aura and wi thout status migrainosus, not intractable G43.009 [facility] [address] [place] [id number] [address] [place] [address] May, Depression with anxiety F41. 8 [facility] [address] [facility] [id number] [address] [place] [id number] May, [facility] [address] [id number] May, [facility] [address] [id number] May, [facility] [address] [address] May, Hypothyroidism (acquired) E0 3.9 [place] [address] [address] May, Paranoid schizophrenia F20.0 [facility] [address] [place] [id number] [address] [place] [phone] May, Type 2 diabetes mellitus wit hout [...] N32.81 and Controlled substance agreement signed Z79.899 [place] [address] [address] May, Controlled substance agreeme nt signed Z79.899 [facility] [place] [address] [address] Apr, [facility] [address] [id number] [address] [place] [id number] Apr, Dental examination Z01.20 [facility] [address] [facility] [id number] [address] [place] [id number] Apr, Paranoid schizophrenia F20.0 [facility] [address] [facility] [id number] [address] [place] [id number] Apr, Hypertension, unspecified ty pe I10 [facility] [address] [id number] [address] [place] [phone] Apr, Paranoid schizophrenia F20.0 [facility] [address] [facility] [id number] [address] [place] [id number] Apr, [facility] [address] [facility] [id number] [address] [place] [address] Apr, Tobacco abuse Z72.0 [facility] [address] [facility] [id number] [address] [place] [phone] Apr, [facility] [address] [facility] [id number] [address] [place] [phone] Mar, [facility] [address] [facility] [id number] [address] [place] [phone] Mar, Paranoid schizophrenia F20.0 and BMI 45.0-49.9, adult Z68.42 [facility] [address] [facility] [id number] [address] [place] [id number] Mar, Schizoaffective disorder, de pressive type F25.1 [facility] [address] [facility] [id number] [address] [place] [id number] Mar, [facility] [address] [facility] [id number] [address] [place] [id number] Mar, Hypothyroidism, unspecified type E03.9 [facility] [address] [facility] [id number] [address] [place] [phone] Mar, Schizoaffective disorder, de pressive type F25.1 [facility] [address] [facility] [id number] [address] [place] [phone] Feb, Gastroenteritis K52.9 and BM I 45.0-49.9, adult Z68.42 [facility] [address] [place] [id number] [address] [place] [phone] Feb, [facility] [address] [place] [id number] Feb, [facility] [address] [place] [id number] [place] [address] Feb, [facility] [address] [address] Feb, [facility] [address] [address] Feb, Paranoid schizophrenia F20.0 [facility] [address] [place] [address] Feb, Gastroesophageal reflux dise ase without esophagitis K21.9 ; Other seasonal allergic rhinitis J30.2 ; Other allergic rhinitis J30.89 ; Tobacco abuse Z72.0 and BMI 40.0-44.9, adult Z68.41 [facility] [address] [address] Feb, Onychomycosis B35.1 ; Callus of foot L84 and DM neuro manif type II E11.49 [facility] [address] [facility] [id number] [address] [place] [phone] Jan, Chronic allergic rhinitis J3 0.9 [place] [address] [place] [id number] [place] [phone] Jan, [facility] [address] [place] [id number] [address] [place] [phone] Jan, Schizoaffective disorder, de pressive type F25.1 [facility] [address] [facility] [id number] [address] [place] [id number] 10 Jan, 2017 [facility] [address] [facility] [id number] [address] [place] [phone] 07 Jan, 2017 Sore throat J02.9 and Season al allergic rhinitis due to other allergic trigger J30.89 [facility] [address] [facility] [id number] [address] [place] [phone] 04 Jan, 2017 [facility] [address] [place] [id number] [place] [phone] 04 Jan, 2017 [facility] [address] [facility] [id number] [address] [place] [address] Jan, Chronic allergic rhinitis J3 0.9 [facility] [address] [facility] [id number] [place] [id number] 27 Dec, 2016 Paranoid schizophrenia F20.0 ; Primary insomnia F51.01 and Schizoaffective disorder, depressive type F25.1 [facility] [address] [place] [id number] [address] [place] [id number] 21 Dec, 2016 Chronic pain syndrome G89.4 ; Cervicalgia of ngehljbj-gweerdn-gqgpz region M54.2 ; Menopausal syndrome (hot flashes) N95.1 and Encounter for immunization Z23 [facility] [address] [place] [id number] [address] [place] [phone] 14 Dec, 2016 [facility] [address] [place] [id number] [address] [place] [phone] 13 Dec, 2016 [place] [address] [place] [id number] [address] [place] [phone] 08 Dec, 2016 Paranoid schizophrenia F20.0 [place] [address] [place] [id number] [address] [place] [phone] Dec, Schizoaffective disorder, de pressive type F25.1 [facility] [address] [place] [id number] [address] [place] [id number] Nov, Hypothyroidism, unspecified type E03.9 [facility] [address] [facility] [id number] [address] [place] [phone] Nov, Acute seasonal allergic rhin itis due to other allergen J30.89 [facility] [address] [facility] [id number] [address] [place] [phone] Nov, [facility] [address] [facility] [id number] [address] [place] [address] Nov, Hypothyroidism, unspecified type E03.9 and Other elevated white blood cell (WBC) count D72.828 [place] [address] [facility] [id number] [address] [place] [address] Nov, Schizoaffective disorder, de pressive type F25.1 [facility] [address] [place] [id number] [address] [place] [phone] Nov, Paranoid schizophrenia F20.0 [facility] [address] [place] [id number] [address] [place] [phone] Nov, Type 2 diabetes mellitus wit hout complication, without long-term current use of insulin E11.9 ; Morbid obesity due to excess calories E66.01 and Chronic pain syndrome G89.4 [facility] [address] [facility] [id number] [address] [place] [address] Oct, Paranoid schizophrenia F20.0 [facility] [address] [facility] [id number] [address] [place] [phone] Oct, [place] [address] [facility] [id number] [address] [place] [address] Oct, Schizoaffective disorder, de pressive type F25.1 [facility] [address] [facility] [id number] [address] [place] [phone] Oct, Hypothyroidism, unspecified type E03.9 and Other elevated white blood cell (WBC) count D72.828 [facility] [address] [facility] [id number] [address] [place] [address] Oct, Morbid obesity due to excess calories E66.01 ; Chronic obstructive pulmonary disease, unspecified COPD type J44.9 ; History of lupus Z87.39 ; Hypothyroidism, unspecified type E03.9 ; Gastroesophageal reflux disease without esophagitis K21.9 ; Primary insomnia F51.01 and Chronic pain syndrome G89.4 [facility] [address] [facility] [id number] [address] [place] [phone] Sep, [facility] [address] [id number] [address] [place] [phone] Sep, [facility] [address] [id number] [address] [place] [address] Sep, [facility] [address] [facility] [id number] [address] [place] [phone] Sep, Paranoid schizophrenia F20.0 [facility] [address] [facility] [id number] [address] [place] [phone] Sep, [facility] [address] [id number] [address] [place] [phone] Sep, Paranoid schizophrenia F20.0 [facility] [address] [facility] [id number] [address] [place] [phone] Sep, [facility] [address] [facility] [id number] [address] [place] [phone] August, Paranoid schizophrenia F20.0 [facility] [address] [facility] [id number] [address] [place] [phone] Jul, [facility] [address] [facility] [id number] [address] [place] [phone] Jul, Type 2 diabetes mellitus wit hout complication, without long-term current use of insulin E11.9 ; Morbid obesity due to excess calories E66.01 ; Depression with anxiety F41.8 ; Hypothyroidism, unspecified type E03.9 ; Seasonal allergic rhinitis due to other allergic trigger J30.89 ; Pain, dental K08.89 and Gastroesophageal reflux disease without esophagitis K21.9 [facility] [address] [id number] [address] [place] [id number] 12 Jul, 2016 Dental examination Z01.20 [place] [address] [facility] [id number] [address] [place] [phone] 07 Jul, 2016 Paranoid schizophrenia F20.0 [place] [address] [facility] [id number] [address] [place] [phone] 13 Jun, 2016 Paranoid schizophrenia F20.0 and Depression with anxiety F41.8 [place] [address] [place] [id number] [place] [phone] 10 Jun, 2016 Paranoid schizophrenia F20.0 and Depression with anxiety F41.8 [place] [address] [place] [id number] [place] [phone] 09 Jun, 2016 [place] [address] [place] [id number] [place] [phone] Jun, [facility] [place] [address] [address] Jun, Seasonal allergic rhinitis d ue to other allergic trigger J30.89 [facility] [place] [address] [address] May, Sore throat J02.9 ; Other vi ral agents as the cause of diseases classified elsewhere B97.89 and Acute upper respiratory infection, unspecified J06.9 [place] [id number] [place] [address] May, Paranoid schizophrenia F20.0 and Depression with anxiety F41.8 [place] [address] [facility] [id number] [address] [place] [phone] Apr, Other seasonal allergic rhin itis J30.2 [place] [address] [place] [id number] [address] [place] [phone] Apr, Paranoid schizophrenia F20.0 and Depression with anxiety F41.8 [facility] [place] [address] [place] [id number] [address] [place] [phone] Apr, Bronchitis J40 and Sore thro at J02.9 [facility] [address] [place] [id number] [place] [phone] Apr, Type 2 diabetes mellitus wit hout complication, without long-term current use of insulin E11.9 [facility] [address] [place] [id number] [address] [place] [phone] Apr, Bronchitis J40 [facility] [address] [id number] Apr, [facility] [address] [phone] Apr, [facility] [address] [place] [id number] [address] [place] [address] Mar, Type 2 diabetes mellitus wit hout [...] Other seasonal allergic rhinitis J30.2 [place] [place] [id number] [address] [place] [id number] Mar, Paranoid schizophrenia F20.0 and Depression with anxiety F41.8 [facility] [id number] [place] [phone] Feb, [place] [address] [phone] Feb, [place] [address] [place] [id number] [address] [place] [phone] Feb, [place] [address] [place] [id number] [address] [place] [phone] Feb, [place] [address] [id number] [address] [place] [phone] 14 Feb, 2016 Type 2 diabetes mellitus wit hout complication, without long-term current use of insulin E11.9 ; ARIAS on CPAP G47.33 and Preoperative evaluation to rule out surgical contraindication Z01.818 [facility] [address] [id number] [address] [place] [phone] 09 Feb, 2016 Paranoid schizophrenia F20.0 and Depression with anxiety F41.8 [facility] [address] [id number] [address] [place] [phone] Jan, [facility] [address] [id number] [address] [place] [phone] Jan, Paranoid schizophrenia F20.0 and Depression with anxiety F41.8 [facility] [address] [id number] [address] [place] [id number] Jan, [facility] [address] [id number] [address] [place] [address] Jan, Muscle strain T14.8 [facility] [address] [id number] [address] [place] [phone] Jan, Paranoid schizophrenia F20.0 [facility] [address] [id number] [address] [place] [phone] Jan, [facility] [address] [id number] [address] [place] [phone] 05 Jan, 2016 Paranoid schizophrenia F20.0 and Depression with anxiety F41.8 [facility] [address] [id number] [address] [place] [phone] Jan, [facility] [address] [id number] [address] [place] [phone] Jan, [facility] [address] [id number] [address] [place] [phone] Dec, [facility] [address] [id number] [address] [place] [phone] 23 Dec, 2015 Paranoid schizophrenia F20.0 [facility] [address] [id number] [address] [place] [phone] 16 Dec, 2015 Paranoid schizophrenia F20.0 and Depression with anxiety F41.8 [facility] [address] [id number] [address] [place] [phone] Nov, [facility] [address] [id number] [address] [place] [id number] Nov, Paranoid schizophrenia F20.0 [facility] [address] [id number] [address] [place] [phone] Nov, Paranoid schizophrenia F20.0 and Depression with anxiety F41.8 [facility] [address] [id number] [address] [place] [phone] Nov, Type 2 diabetes mellitus wit hout complication, without long-term current use of insulin E11.9 ; Paranoid schizophrenia F20.0 ; Chronic obstructive pulmonary disease, unspecified COPD type J44.9 ; Morbid obesity due to excess calories E66.01 and Parkinsonian tremor G20 [facility] [address] [id number] [address] [place] [phone] Nov, [facility] [address] [id number] [address] [place] [id number] Oct, Paranoid schizophrenia F20.0 [facility] [address] [id number] [address] [place] [phone] Oct, Paranoid schizophrenia F20.0 [facility] [address] [id number] [address] [place] [phone] Oct, Paranoid schizophrenia F20.0 and Depression with anxiety F41.8 [facility] [address] [id number] [address] [place] [id number] Oct, [facility] [address] [id number] [address] [place] [phone] Oct, Paranoid schizophrenia F20.0 and Depression with anxiety F41.8 [facility] [address] [facility] [id number] [address] [place] [id number] Oct, Nasal sore J34.89 [facility] [address] [facility] [id number] [address] [place] [id number] Oct, Type 2 diabetes mellitus wit hout complication, without long-term current use of insulin E11.9 ; Depression with anxiety F41.8 ; Hypothyroidism, unspecified type E03.9 and History of lupus Z87.39 [facility] [address] [place] [id number] [address] [place] [phone] Oct, [place] [address] [place] [id number] [address] [place] [id number] Oct, Type 2 diabetes mellitus wit hout [...] edema R60.9 and History of lupus Z87.39 [place] [address] [place] [id number] [address] [place] [phone] Feb, [place] [address] [place] [id number] [address] [place] [phone] Jan, [place] [address] [place] [id number] [address] [place] [phone] Jan, [place] [address] [place] [id number] [address] [place] [phone] Jan, [place] [address] [place] [id number] [address] [place] [phone] Dec, [place] [address] [place] [id number] [address] Nov, [facility] [address] [id number] [address] [place] [address], [place] [address] Nov, [facility] [address] [id number] [address] [place] [address], [place] [address] Oct, [facility] [address] [id number] [address] [place] [phone] Oct, [facility] [address] [id number] [address] [place] [phone] Oct, [facility] [address] [id number] [address] [place] [id number] Sep, Allergic rhinitis 477.9 [facility] [address] [id number] [address] [place] [address], [place] [address] Sep, Rhinitis, allergic 477.9 [facility] [address] [id number] [address] [place] [phone] Sep, Rhinitis, allergic 477.9 [facility] [address] [id number] [address] [place] [address], [place] [address] Sep, [facility] [address] [id number] [address] [place] [phone] August, [facility] [address] [id number] [address] [place] [phone] August, [facility] [address] [id number] [address] [place] [phone] August, [facility] [address] [id number] [address] [place] [address], [place] [address] Jul, [facility] [address] [id number] [address] [place] [phone] 14 Jul, 2014 [facility] [address] [id number] [address] [place] [address], [place] [address] Jul, [facility] [address] [id number] [address] [place] [address], [place] [address] 16 Jun, 2014 [facility] [address] [id number] [address] [place] [address], [place] [address] 16 Jun, 2014 [facility] [address] [id number] [address] [place] [address], [place] [address] Jun, [facility] [address] [id number] [address] [place] [address], [place] [address] Jun, [facility] [address] [id number] [address] [place] [address], [place] [address] Jun, [facility] [address] [id number] [address] [place] [address], [place] [address] Jun, [facility] [address] [id number] [address] [place] [address], [place] [address] Jun, [facility] [address] [id number] [address] [place] [address], [place] [address] Jun, [facility] [address] [id number] [address] [place] [address], [place] [address] May, [facility] [address] [id number] [address] [place] [address], [place] [address] May, [facility] [address] [id number] [address] [place] [address], [place] [address] May, [facility] [address] [id number] [address] [place] [address], [place] [address] May, [facility] [address] [id number] [address] [place] [address], [place] [address] Apr, [facility] [address] [id number] [address] [place] [address], [place] [address] Mar, [facility] [address] [id number] [address] [place] [address], [place] [address] Mar, [facility] [address] [id number] [address] [place] [address], [place] [address] Mar, [facility] [address] [id number] [address] [place] [address], [place] [address] Mar, [facility] [place] [facility] [address] [id number] [address] [place] [address], [place] [address] Mar, [facility] [place] [facility] [address] [id number] [address] [place] [address], [place] [address] Mar, [facility] [place] [facility] [address] [id number] [address] [place] [address], [place] [address] Mar, [facility] [place] [facility] [address] [id number] [address] [place] [address], [place] [address] Mar, [facility] [place] [facility] [address] [id number] [address] [place] [address], [place] [address] Mar, [facility] [place] [facility] [address] [id number] [address] [place] [address], [place] [address] Feb, [facility] [place] [facility] [address] [id number] [address] [place] [address], [place] [address] Feb, [facility] [place] [facility] [address] [id number] [address] [place] [address], [place] [address] Feb, [facility] [place] [facility] [address] [id number] [address] [place] [address], [place] [address] Feb, [facility] [place] [facility] [address] [id number] [address] [place] [address], [place] [address] Feb, [facility] [place] [facility] [address] [id number] [address] [place] [address], [place] [address] Feb, [facility] [place] [facility] [address] [id number] [address] [place] [address], [place] [address] Feb, [facility] [address] [id number] [address] [place] [address], [place] [address] Feb, [facility] [address] [id number] [address] [place] [address], [place] [address] Jan, [facility] [address] [id number] [address] [place] [address] [place] [address] 23 Jan, 2014 [facility] [address] [id number] [address] [place] [address], [place] [address] 16 Jan, 2014 [facility] [address] [id number] [address] [place] [address], [place] [address] 16 Jan, 2014 [facility] [address] [id number] [address] [place] [address], [place] [address] 15 Jan, 2014 [facility] [address] [id number] [address] [place] [address], [place] [address] 15 Jan, 2014 [facility] [address] [id number] [address] [place] [address], [place] [address] 14 Jan, 2014 [facility] [address] [id number] [address] [place] [address], [place] [address] 14 Jan, 2014 [facility] [address] [id number] [address] [place] [address], [place] [address] 14 Jan, 2014 [facility] [address] [id number] [address] [place] [address], [place] [address] 14 Jan, 2014 [facility] [address] [id number] [address] [place] [address], [place] [address] 18 Dec, 2013 [facility] [address] [id number] [address] [place] [address], [place] [address] 18 Dec, 2013 [facility] [address] [id number] [address] [place] [address], [place] [address] 10 Dec, 2013 [facility] [address] [id number] [address] [place] [address], [place] [address] 10 Dec, 2013 [facility] [address] [id number] [address] [place] [address], [place] [address] Nov, [facility] [address] [id number] [address] [place] [address], [place] [address] Nov, [facility] [address] [id number] [address] [place] [address], [place] [address] Nov, [facility] [address] [id number] [address] [place] [address], [place] [id number] Nov, [facility] [place] [facility] [address] [id number] [address] [place] [address], [place] [address] Nov, [facility] [place] [facility] [address] [id number] [address] [place] [address], [place] [address] Oct, [facility] [place] [facility] [address] [id number] [address] [place] [address], [place] [address] Oct, [facility] [place] [facility] [address] [id number] [address] [place] [address], [place] [address] Oct, [facility] [place] [facility] [address] [id number] [address] [place] [address], [place] [address] Oct, [facility] [place] [facility] [address] [id number] [address] [place] [address], [place] [address] Sep, [facility] [place] [facility] [address] [id number] [address] [place] [address], [place] [address] Sep, [facility] [place] [facility] [address] [id number] [address] [place] [address], [place] [address] Sep, [facility] [place] [facility] [address] [id number] [address] [place] [address], [place] [address] Sep, [facility] [place] [facility] [address] [id number] [address] [place] [address], [place] [address] Sep, [facility] [place] [facility] [address] [id number] [address] [place] [address], [place] [address] Sep, [facility] [place] [facility] [address] [id number] [address] [place] [address], [place] [address] Sep, [facility] [place] [facility] [address] [id number] [address] [place] [address], [place] [address] Sep, [facility] [place] [facility] [address] [id number] [address] [place] [address], [place] [address] August, [facility] [place] [facility] [address] [id number] [address] [place] [address], [place] [address] August, [facility] [address] [id number] [address] [address] August, [facility] [address] [id number] [address] [place] [address], [place] [address] August, [facility] [address] [id number] [address] [place] [address], [place] [address] August, [facility] [address] [id number] [address] [place] [address], [place] [address] August, [facility] [address] [id number] [address] [place] [address], [place] [address] August, [facility] [address] [id number] [address] [place] [address], [place] [address] Jul, [facility] [address] [id number] [address] [place] [address], [place] [address] Jul, [facility] [address] [id number] [address] [place] [address], [place] [address] Jul, [facility] [address] [id number] [address] [place] [address], [place] [address] Jul, [facility] [address] [id number] [address] [place] [address], [place] [address] Jul, [facility] [address] [id number] [address] [place] [address], [place] [address] Jul, [facility] [address] [id number] [address] [place] [address], [place] [address] Jul, [facility] [address] [id number] [address] [place] [address], [place] [address] Jul, [facility] [place] [address] [id number] [address] [place] [address], [place] [address] Jul, [facility] [place] [address] [id number] [address] [place] [address], [place] [address] Jul, [facility] [address] [id number] [address] [place] [address] Jul, [facility] [address] [id number] [address] [place] [address], [place] [address] Jul, [facility] [address] [id number] [address] [place] [address], [place] [address] Jun, [facility] [address] [id number] [address] [place] [address], [place] [address] Jun, [facility] [address] [id number] [address] [place] [address], [place] [address] Jun, [facility] [address] [id number] [address] [place] [address], [place] [address] Jun, [facility] [address] [id number] [address] [place] [address], [place] [address] Jun, [facility] [address] [id number] [address] [place] [address], [place] [address] May, [facility] [address] [id number] [address] [place] [address], [place] [address] May, [facility] [address] [id number] [address] [place] [address], [place] [address] May, [facility] [address] [id number] [address] [place] [address], [place] [address] May, [facility] [place] [facility] [address] [id number] [address] [place] [address], [place] [address] May, [facility] [address] [id number] [address] [place] [address], [place] [address] May, [facility] [address] [id number] [address] [place] [address], [place] [address] May, [facility] [place] [facility] [address] [id number] [address] [place] [address], [place] [address] May, [facility] [address] [id number] [address] [place] [address], [place] [address] Mar, [facility] [address] [id number] [address] [place] [address], [place] [address] Mar, [facility] [address] [id number] [address] [place] [address], [place] [address] Mar, [facility] [address] [id number] [address] [place] [address], [place] [address] Mar, [facility] [address] [id number] [address] [place] [address] Mar, [facility] [address] [id number] [address] [place] [address], [place] [address] Mar, [facility] [address] [id number] [address] [place] [address] Feb, [facility] [address] [id number] [address] [place] [address] Feb, [facility] [address] [id number] [address] [place] [address] Jan, [facility] [address] [id number] [address] [place] [address] Jan, [facility] [address] [id number] [address] [place] [address] Jan, [facility] [address] [id number] [address] [place] [address] Jan, [facility] [address] [id number] [address] [place] [address] Jan, [facility] [address] [id number] [address] [place] [address] Jan, [facility] [address] [id number] [address] [place] [address] Jan, [facility] [address] [id number] [address] [place] [address] Jan, [facility] [address] [id number] [address] [place] [address], [place] [address] Jan, [facility] [address] [id number] [address] [place] [address], [place] [address] Jan, [facility] [address] [id number] [address] [place] [address], [place] [address] Dec, [facility] [address] [id number] [address] [place] [address], [place] [address] Nov, [facility] [address] [id number] [address] [place] [address], [place] [address] Nov, [facility] [address] [id number] [address] [place] [address], [place] [address] Nov, [facility] [address] [id number] [address] [place] [address], [place] [address] Oct, [facility] [address] [id number] [address] [place] [address], [place] [address] Oct, [facility] [address] [id number] [address] [place] [address], [place] [address] August, [facility] [address] [id number] [address] [place] [address], [place] [address] Apr, [facility] [address] [id number] [address] [place] [address], [place] [address] Apr, [facility] [address] [id number] [address] [place] [address], [place] [address] Feb, [facility] [address] [id number] [address] [place] [address], [place] [address] Feb, [facility] [address] [id number] [address] [place] [address], [place] [address] Dec, [facility] [address] [id number] [address] [place] [address], [place] [address] Dec, [facility] [address] [id number] [address] [place] [address], [place] [address] Oct, [facility] [address] [facility] [id number] [address] [place] [address] Oct, [facility] [address] [facility] [id number] [address] [place] [address] Oct, [facility] [address] [facility] [id number] [address] [place] [address] Jul, IMMUNIZATIONS No Known Immunizations SOCIAL HISTORY Never Assessed REASON FOR VISIT PLAN OF CARE VITAL SIGNS Height 57 in 2014-07-09 Weight 230.56 lbs 2014-07-09 Temperature 98.1 degrees Fahrenheit 2014-07-09 Heart Rate 74 bpm 2014-07-09 Respiratory Rate 20 2014-07-09 Blood pressure systolic 138 mmHg 2014-07-09 Blood pressure diastolic 70 mmHg 2014-07-09 MEDICATIONS Unknown Medications RESULTS No Results PROCEDURES [...] psychosis/mental illness, last one in [facility] 4 years ago Hospitalization History broken ankle 08/2018
--- OUTSIDE RECORDS SUMMARY | 2019-07-07 04:51 | XMS REPORT | Continuity of Care Document ---
Author Organization Unknown Address Unknown Phone Unavailable Allergies Active Description Code Type Severity Reaction Onset Reported/Identified Relationship to Patient Clinical Status Yes PENICILLIN G BENZATHINE MILD MILD Yes PENICILLIN G BENZATHINE MILD OTHER Yes SULFATRIM MILD DERMATOLOGICAL - DM Yes SULFATRIM MILD MILD Yes Penicillins Drug Allergy N/A N/A 08/14/2011 Yes Sulfa(Sulfonamide Antibiotics) Drug Allergy N/A N/A 08/14/2011 Yes Penicillins Drug Allergy 08/14/2011 Yes Sulfa(Sulfonamide Antibiotics) Drug Allergy 08/14/2011 Yes Penicillins [id number] Drug Aller gy Unknown RASH 12/01/2013 Yes Sulfa (Sulfonamide Antibiotics) [id number] Drug Allergy Unknown RASH 014 Yes Penicillins [id number] Drug Aller gy Mild RASH 06/19/2019 Yes Sulfa (Sulfonamide Antibiotics) [id number] Drug Allergy Mild RASH 0 Medications Medication Packaging Start Date St op Date Route Dosage Sig NORMAL SALINE 1000CC IV BAG INJ 0.9 % (NS 1000CC IV BAG) ml 09/01/2018 09/16/2018 CONTINUOUSEVERY 0 Hour CEFAZOLIN VIAL INJ 1 GM (ANCEF) GM 09/01/2018 09/01/2018 [id number] Problems Date Dx Coded Attending Type Code Diagnosis Diagnosed By 08/14/2011 715.90 OST EOARTHROSIS UNSPECIFIED WHETHER GENERALIZED OR LOCALIZED INVOLVING UNSPECIFIED SITE 08/14/2011 715.90 OST EOARTHROSIS UNSPECIFIED WHETHER GENERALIZED OR LOCALIZED INVOLVING UNSPECIFIED SITE 08/14/2011 715.90 OST EOARTHROSIS UNSPECIFIED WHETHER GENERALIZED OR LOCALIZED INVOLVING UNSPECIFIED SITE 08/14/2011 RADHA ROJAS MD 715.9 0 OSTEOARTHROSIS UNSPECIFIED WHETHER GENERALIZED OR LOCALIZED INVOLVING UNSPECIFIED SITE 08/14/2011 RADHA ROJAS MD 715.9 0 OSTEOARTHROSIS UNSPECIFIED WHETHER GENERALIZED OR LOCALIZED INVOLVING UNSPECIFIED SITE 08/14/2011 RODO MOREIRA APRN 715.90 OSTEOARTHROSIS UNSPECIFIED WHETHER GENER ALIZED OR LOCALIZED INVOLVING UNSPECIFIED SITE 08/14/2011 RADHA ROJAS MD 715.9 0 OSTEOARTHROSIS UNSPECIFIED WHETHER GENERALIZED OR LOCALIZED INVOLVING UNSPECIFIED SITE 08/14/2011 RODO MOREIRA APRN 715.90 OSTEOARTHROSIS UNSPECIFIED WHETHER GENER ALIZED OR LOCALIZED INVOLVING UNSPECIFIED SITE 08/14/2011 RADHA ROJAS MD 715.9 0 OSTEOARTHROSIS UNSPECIFIED WHETHER GENERALIZED OR LOCALIZED INVOLVING UNSPECIFIED SITE 08/14/2011 RADHA ROJAS MD 715.9 0 OSTEOARTHROSIS UNSPECIFIED WHETHER GENERALIZED OR LOCALIZED INVOLVING UNSPECIFIED SITE 08/14/2011 ELVER ARROYO APRN 715.90 OSTEOARTHROSIS UNSPECIFIED WHETHER GENER ALIZED OR LOCALIZED INVOLVING UNSPECIFIED SITE 08/14/2011 715.90 O[address] EOARTHROSIS UNSPECIFIED WHETHER GENERALIZED OR LOCALIZED INVOLVING UNSPECIFIED SITE 11/16/2011 695.4 LUPU S ERYTHEMATOSUS 11/16/2011 695.4 LUPU S ERYTHEMATOSUS 11/16/2011 695.4 LUPU S ERYTHEMATOSUS 11/16/2011 RADHA ROJAS MD 695.4 LUPUS ERYTHEMATOSUS 11/16/2011 RADHA ROJAS MD 695.4 LUPUS ERYTHEMATOSUS 11/16/2011 RODO MOREIRA APRN 69 5.4 LUPUS ERYTHEMATOSUS 11/16/2011 RADHA ROJAS MD 695.4 LUPUS ERYTHEMATOSUS 11/16/2011 RODO MOREIRA APRN 69 5.4 LUPUS ERYTHEMATOSUS 11/16/2011 RADHA ROJAS MD 695.4 LUPUS ERYTHEMATOSUS 11/16/2011 RADHA ROJAS MD 695.4 LUPUS ERYTHEMATOSUS 11/16/2011 ELVER ARROYO APRN 69 5.4 LUPUS ERYTHEMATOSUS 11/16/2011 695.4 LUPU S ERYTHEMATOSUS 11/15/2012 401.1 HYPE RTENSION, BENIGN ESSENTIAL 11/15/2012 RADHA ROJAS MD 401.1 HYPERTENSION, BENIGN ESSENTIAL 11/15/2012 RADHA ROJAS MD 401.1 HYPERTENSION, BENIGN ESSENTIAL 11/15/2012 RODO MOREIRA APRN 40 1.1 HYPERTENSION, BENIGN ESSENTIAL 11/15/2012 RADHA ROJAS MD 401.1 HYPERTENSION, BENIGN ESSENTIAL 11/15/2012 LILLIE LUBE ATTENDANT, RODO A 40 1.1 HYPERTENSION, BENIGN ESSENTIAL 11/15/2012 RADHA ROJAS MD 401.1 HYPERTENSION, BENIGN ESSENTIAL 11/15/2012 RADHA ROJAS MD 401.1 HYPERTENSION, BENIGN ESSENTIAL 11/15/2012 ELVER ARROYO APRN 40 1.1 HYPERTENSION, BENIGN ESSENTIAL 12/06/2012 244.9 UNSP ECIFIED ACQUIRED HYPOTHYROIDISM 12/06/2012 272.4 OTHE R AND UNSPECIFIED HYPERLIPIDEMIA 12/06/2012 RADHA ROJAS MD 244.9 UNSPECIFIED ACQUIRED HYPOTHYROIDISM 12/06/2012 RADHA ROJAS MD 272.4 OTHER AND UNSPECIFIED HYPERLIPIDEMIA 12/06/2012 RADHA ROJAS MD 244.9 UNSPECIFIED ACQUIRED HYPOTHYROIDISM 12/06/2012 RADHA ROJAS MD 272.4 OTHER AND UNSPECIFIED HYPERLIPIDEMIA 12/06/2012 RODO MOREIRA APRN A 24 4.9 UNSPECIFIED ACQUIRED HYPOTHYROIDISM 12/06/2012 RODO MOREIRA APRN A 27 2.4 OTHER AND UNSPECIFIED HYPERLIPIDEMIA 12/06/2012 RADHA ROJAS MD 244.9 UNSPECIFIED ACQUIRED HYPOTHYROIDISM 12/06/2012 RADHA ROJAS MD 272.4 OTHER AND UNSPECIFIED HYPERLIPIDEMIA 12/06/2012 SUSI MOREIRA APRNIDI A 24 4.9 UNSPECIFIED ACQUIRED HYPOTHYROIDISM 12/06/2012 RODO MOREIRA APRN A 27 2.4 OTHER AND UNSPECIFIED HYPERLIPIDEMIA 12/06/2012 RADHA ROJAS MD 244.9 UNSPECIFIED ACQUIRED HYPOTHYROIDISM 12/06/2012 RADHA ROJAS MD 272.4 OTHER AND UNSPECIFIED HYPERLIPIDEMIA 12/06/2012 RADHA ROJAS MD 244.9 UNSPECIFIED ACQUIRED HYPOTHYROIDISM 12/06/2012 RADHA ROJAS MD 272.4 OTHER AND UNSPECIFIED HYPERLIPIDEMIA 12/06/2012 ELVER ARROYO APRN T 24 4.9 UNSPECIFIED ACQUIRED HYPOTHYROIDISM 12/06/2012 ELVER ARROYO APRN 27 2.4 OTHER AND UNSPECIFIED HYPERLIPIDEMIA 01/09/2013 RADHA ROJAS MD 790.2 9 OTHER ABNORMAL GLUCOSE 01/09/2013 RADHA ROJAS MD 790.2 9 OTHER ABNORMAL GLUCOSE 01/09/2013 SUSI MOREIRA APRNIDI A 790.29 OTHER ABNORMAL GLUCOSE 01/09/2013 RADHA ROJAS MD 790.2 9 OTHER ABNORMAL GLUCOSE 01/09/2013 RODO MOREIRA APRN A 790.29 OTHER ABNORMAL GLUCOSE 01/09/2013 RADHA ROJAS MD 790.2 9 OTHER ABNORMAL GLUCOSE 01/09/2013 RADHA ROJAS MD 790.2 9 OTHER ABNORMAL GLUCOSE 01/09/2013 ELVER ARROYO APRN 790.29 OTHER ABNORMAL GLUCOSE 07/26/2013 RODO MOREIRA APRN 62 5.0 DYSPAREUNIA 07/26/2013 RODO MOREIRA APRN 62 7.3 POSTMENOPAUSAL ATROPHIC VAGINITIS 07/26/2013 RADHA ROJAS MD 625.0 DYSPAREUNIA 07/26/2013 RADHA ROJAS MD 627.3 POSTMENOPAUSAL ATROPHIC VAGINITIS 07/26/2013 RODO MOREIRA APRN 62 5.0 DYSPAREUNIA 07/26/2013 RODO MOREIRA APRN 62 7.3 POSTMENOPAUSAL ATROPHIC VAGINITIS 07/26/2013 RADHA ROJAS MD 625.0 DYSPAREUNIA 07/26/2013 RADHA ROJAS MD 627.3 POSTMENOPAUSAL ATROPHIC VAGINITIS 07/26/2013 RADHA ROJAS MD 625.0 DYSPAREUNIA 07/26/2013 RADHA ROJAS MD 627.3 POSTMENOPAUSAL ATROPHIC VAGINITIS 07/26/2013 ELVER ARROYO APRN 62 5.0 DYSPAREUNIA 07/26/2013 ELVER ARROYO APRN 62 7.3 POSTMENOPAUSAL ATROPHIC VAGINITIS 12/07/2013 ANUSHKA LARSON MD Ot 244.9 HYPOTHYROIDISM NOS 12/07/2013 ANUSHKA LARSON MD Ot 295.9 0 SCHIZOPHRENIA NOS-UNSPEC 12/07/2013 ANUSHKA LARSON MD Ot 493.2 0 CHRONIC OBSTRUCTIVE ASTHMA, NOS 12/07/2013 ANUSHKA LARSON MD Ot 596.5 1 HYPERTONICITY OF BLADDER 12/07/2013 ANUSHKA LARSON MD Ot 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 12/07/2013 ANUSHKA LARSON MD Ot 788.3 0 UNSPECIFIED URINARY INCONTINENCE 12/07/2013 ANUSHKA LARSON MD Ot 790.2 9 OTHER ABNORMAL GLUCOSE 12/11/2013 RADHA ROJAS MD 496 CHRONIC AIRWAY OBSTRUCTION NOT ELSEWHERE CLASSIFIED 12/11/2013 RODO MOREIRA APRN 49 6 CHRONIC AIRWAY OBSTRUCTION NOT ELSEWHERE CLASSIFIED 12/11/2013 RADHA ROJAS MD 496 CHRONIC AIRWAY OBSTRUCTION NOT ELSEWHERE CLASSIFIED 12/11/2013 RADHA ROJAS MD 496 CHRONIC AIRWAY OBSTRUCTION NOT ELSEWHERE CLASSIFIED 12/11/2013 ELVER ARROYO APRN 49 6 CHRONIC AIRWAY OBSTRUCTION NOT ELSEWHERE CLASSIFIED 02/07/2014 RODO MOREIRA APRN V72.31 PROFESSOR OF COMMUNICATION EXAM, ROUTINE 02/07/2014 RODO MOREIRA APRN V76.10 BREAST CANCER SCREENING 02/07/2014 RADHA ROJAS MD V72.3 1 PROFESSOR OF COMMUNICATION EXAM, ROUTINE 02/07/2014 RADHA ROJAS MD V76.1 0 BREAST CANCER SCREENING 02/07/2014 RADHA ROJAS MD V72.3 1 PROFESSOR OF COMMUNICATION EXAM, ROUTINE 02/07/2014 RADHA ROJAS MD V76.1 0 BREAST CANCER SCREENING 02/07/2014 ELVER ARROYO APRN V72.31 PROFESSOR OF COMMUNICATION EXAM, ROUTINE 02/07/2014 ELVER ARROYO APRN V76.10 BREAST CANCER SCREENING 03/12/2014 RADHA ROJAS MD 250.0 0 DIABETES MELLITUS WITHOUT MENTION OF COMPLICATION TYPE II OR UNSPECIFIED TYPE NOT STATED UNCONTROLLED 03/12/2014 RADHA ROJAS MD 250.0 0 DIABETES MELLITUS WITHOUT MENTION OF COMPLICATION TYPE II OR UNSPECIFIED TYPE NOT STATED UNCONTROLLED 03/12/2014 ELVER ARROYO APRN 250.00 DIABETES MELLITUS WITHOUT MENTION OF COM PLICATION TYPE II OR UNSPECIFIED TYPE NOT STATED UNCONTROLLED 06/25/2014 ELVER ARROYO APRN 327.23 SLEEP APNEA 06/25/2014 ELVER ARROYO APRN 72 3.1 PAIN NECK 06/25/2014 ELVER ARROYO APRN 72 4.2 BACK PAIN, LOWER 07/09/2014 ELVER ARROYO APRN 33 3.1 ESSENTIAL AND OTHER SPECIFIED FORMS OF TREMOR 07/21/2014 ELVER ARROYO LIBRARY SERIALS ASSISTANT Ot 327.23 OBSTRUCTIVE SLEEP APNEA (ADULT) (PEDIATR 01/03/2015 JUDIE SIEGEL, ANN-MARIE Gonzalez Ot 237. 3 01/03/2015 RITO SIEGEL, JAMIL Keita Ot 784.2 01/09/2015 JAMIL VERAS MD Ot 784.2 01/15/2015 ANN-MARIE DIMAS MD Ot 237. 3 01/15/2015 ANN-MARIE DIMAS MD Ot 401. 9 01/15/2015 ANN-MARIE DIMAS MD Ot 786. 09 01/15/2015 JUDIE SIEGEL, ANN-MARIE Gonzalez Ot 786. 59 01/18/2015 JUDIE SIEGEL, ANN-MARIE Gonazlez Ot 401. 9 01/18/2015 JUDIE SIGEEL, ANN-MARIE Gonzalez Ot 786. 09 01/18/2015 JUDIE SIEGEL, ANN-MARIE J Ot 786. 59 02/19/2015 JUDIE SIEGEL, ANN-MARIE J Ot E66. 9 02/19/2015 JUDIE SIEGEL, ANN-MARIE J Ot I10 02/19/2015 JUDIE SIEGEL, ANN-MARIE J Ot R06. 00 02/19/2015 JUDIE SIEGEL, ANN-MARIE J Ot R07. 9 02/19/2015 JUDIE SIEGEL, ANN-MARIE J Ot Z68. 41 03/18/2015 JUDIE SIEGEL, ANN-MARIE J Ot E66. 9 03/18/2015 JUDIE SIEGEL, ANN-MARIE J Ot I10 03/18/2015 JUDIE SIEGEL, ANN-MARIE J Ot R06. 00 03/18/2015 JUDIE SIEGEL, ANN-MARIE J Ot R07. 9 03/18/2015 JUDIE SIEGEL, ANN-MARIE J Ot Z68. 41 03/29/2015 JUDIE SIEGEL, ANN-MARIE J Ot E66. 9 03/29/2015 JUDIE SIEGEL, ANN-MARIE J Ot I10 03/29/2015 JUDIE SIEGEL, ANN-MARIE J Ot R06. 00 03/29/2015 JUDIE SIEGEL, ANN-MARIE Gonzalez Ot R07. 9 03/29/2015 JUDIE SIEGEL, ANN-MARIE Gonzalez Ot Z68. 41 06/13/2015 Ot 789.01 06/13/2015 ANUSHKA LARSON MD Ot 596.5 1 06/13/2015 ANUSHKA LARSON MD Ot 599.8 2 06/13/2015 ANUSHKA LARSON MD Ot 788.3 0 06/13/2015 ANUSHKA LARSON MD Ot V72.6 3 06/13/2015 ANUSHKA LARSON MD Ot V74.8 06/13/2015 ANN-MARIE DIMAS MD Ot 401. 9 06/13/2015 JUDIE SIEGEL, ANN-MARIE Gonzalez Ot 786. 09 06/13/2015 JUDIE SIEGEL, ANN-MARIE Gonzalez Ot 786. 59 06/13/2015 JUDIE SIEGEL, ANN-MARIE Gonzalez Ot E66. 9 06/13/2015 JUDIE SIEGEL, BASHAR J Ot I10 06/13/2015 JUDIE SIEGEL, ANN-MARIE Gonzalez Ot R06. 00 06/13/2015 JUDIE SIEGEL, ANN-MARIE Gonzalez Ot R07. 9 06/13/2015 JUDIE SIEGEL, ANN-MARIE Gonzalez Ot Z68. 41 06/13/2015 JUDIE SIEGEL, ANN-MARIE Gonzalez Ot 237. 3 06/13/2015 RITO SIEGEL, JAMIL S Ot 784.2 07/04/2015 FREDA AYALA DO Ot [...] OF MALIGNANT NEOPLASM OF 04/24/2016 Ot 789.01 ABD OMINAL PAIN, RIGHT UPPER QUADRANT 04/24/2016 ANUSHKA LARSON MD Ot 596.5 1 HYPERTONICITY OF BLADDER 04/24/2016 ANUSHKA LARSON MD Ot 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 04/24/2016 ANUSHKA LARSON MD Ot 788.3 0 UNSPECIFIED URINARY INCONTINENCE 04/24/2016 ANUSHKA LARSON MD Ot V72.6 3 PRE-PROCEDURAL LABORATORY EXAMINATION 04/24/2016 ANUSHKA LARSON MD Ot V74.8 SCREEN-BACTERIAL DIS NEC 04/24/2016 ANN-MARIE DIMAS MD Ot 401. 9 HYPERTENSION NOS 04/24/2016 ANN-MARIE DIMAS MD Ot 786. 09 RESPIRATORY ABNORM NEC 04/24/2016 ANN-MARIE DIMAS MD Ot 786. 59 CHEST PAIN NEC 04/24/2016 ANN-MARIE DIMAS MD Ot E66. 9 OBESITY, UNSPECIFIED 04/24/2016 ANN-MARIE DIMAS MD Ot I10 ESSENTIAL (PRIMARY) HYPERTENSION 04/24/2016 ANN-MARIE DIMAS MD Ot R06. 00 DYSPNEA, UNSPECIFIED 04/24/2016 ANN-MARIE DIMAS MD Ot R07. 9 CHEST PAIN, UNSPECIFIED 04/24/2016 ANN-MARIE DIMAS MD Ot Z68. 41 BODY MASS INDEX (BMI) 40.0-44.9, ADULT 04/24/2016 ANN-MARIE DIMAS MD Ot 237. 3 [facility] 04/24/2016 RITO SIEGEL, [...] Z01.818 ENCOUNTER FOR OTHER PREPROCEDURAL EXAMIN 04/28/2016 JOSE LOYA MD Ot Z01.8 10 ENCOUNTER FOR PREPROCEDURAL CARDIOVASCUL 05/12/2016 Ot 789.01 ABD OMINAL PAIN, RIGHT UPPER QUADRANT 05/12/2016 ANUSHKA LARSON MD Ot 596.5 1 HYPERTONICITY OF BLADDER 05/12/2016 ANUSHKA LARSON MD Ot 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 05/12/2016 ANUSHKA LARSON MD Ot 788.3 0 UNSPECIFIED URINARY INCONTINENCE 05/12/2016 ANUSHKA LARSON MD Ot V72.6 3 PRE-PROCEDURAL LABORATORY EXAMINATION 05/12/2016 MARSHA SIEGEL, ANUSHKA Ribera Ot V74.8 SCREEN-BACTERIAL DIS NEC 05/12/2016 ANN-MARIE DIMAS MD Ot 401. 9 HYPERTENSION NOS 05/12/2016 ANN-MARIE DIMAS MD Ot 786. 09 RESPIRATORY ABNORM NEC 05/12/2016 ANN-MARIE DIMAS MD Ot 786. 59 CHEST PAIN NEC 05/12/2016 ANN-MARIE DIMAS MD Ot E66. 9 OBESITY, UNSPECIFIED 05/12/2016 ANN-MARIE DIMAS MD Ot I10 ESSENTIAL (PRIMARY) HYPERTENSION 05/12/2016 ANN-MARIE DIMAS MD Ot R06. 00 DYSPNEA, UNSPECIFIED 05/12/2016 ANN-MARIE DIMAS MD Ot R07. 9 CHEST PAIN, UNSPECIFIED 05/12/2016 ANN-MARIE DIMAS MD Ot Z68. 41 BODY MASS INDEX (BMI) 40.0-44.9, ADULT 05/12/2016 ANN-MARIE DIMAS MD Ot 237. 3 [facility] 05/12/2016 RITO SIEGEL, JAMIL Keita Ot 784.2 SWELLING IN HEAD NECK 05/12/2016 FREDA AYALA DO Ot R10.11 RIGHT UPPER QUADRANT PAIN 05/12/2016 CEASR SIEGEL, JAYDA Oro Ot R11.2 NAUSEA WITH VOMITING, UNSPECIFIED 05/12/2016 CESAR SIEGEL, JAYDA Oro Ot R13.10 DYSPHAGIA, UNSPECIFIED 05/12/2016 CESAR SIEGEL, JAYDA Oro Ot R19.7 DIARRHEA, UNSPECIFIED 05/12/2016 CESAR SIEGEL, JAYDA Oro Ot Z01.818 ENCOUNTER FOR OTHER PREPROCEDURAL EXAMIN 05/12/2016 VINCENZO SIEGEL, JOSE Graf Ot Z01.8 10 ENCOUNTER FOR PREPROCEDURAL CARDIOVASCUL 05/13/2016 JORDAN ASTUDILLO DO Ot E66. 9 OBESITY, UNSPECIFIED 05/13/2016 JORDAN ASTUDILLO DO Ot G47. 33 OBSTRUCTIVE SLEEP APNEA (ADULT) (PEDIATR 05/13/2016 JORDAN ASTUDILLO DO Ot J44. 9 CHRONIC OBSTRUCTIVE PULMONARY DISEASE, U 05/13/2016 JORDAN ASTUDILLO DO Ot R53. 83 OTHER FATIGUE 05/20/2016 JORDAN ASTUDILLO DO Ot E66. 9 OBESITY, UNSPECIFIED 05/20/2016 BAUDILIO DO, JORDAN M Ot G47. 33 OBSTRUCTIVE SLEEP APNEA (ADULT) (PEDIATR 05/20/2016 JORDAN ASTUDILLO DO Ot J44. 9 CHRONIC OBSTRUCTIVE PULMONARY DISEASE, U 05/20/2016 BAUDILIO DOJORDAN Ot R53. 83 OTHER FATIGUE 05/22/2016 JORDAN ASTUDILLO DO Ot E66. 9 OBESITY, UNSPECIFIED 05/22/2016 JORDAN ASTUDILLO DO M Ot G47. 33 OBSTRUCTIVE SLEEP APNEA (ADULT) (PEDIATR 05/22/2016 JORDAN ASTUDILLO DO Ot J44. 9 CHRONIC OBSTRUCTIVE PULMONARY DISEASE, U 05/22/2016 JORDAN ASTUDILLO DO Ot R53. 83 OTHER FATIGUE 05/28/2016 JOSE LOYA MD Ot Z01.8 10 ENCOUNTER FOR PREPROCEDURAL CARDIOVASCUL 05/28/2016 JOSE LOYA MD Ot Z01.8 10 ENCOUNTER FOR PREPROCEDURAL CARDIOVASCUL 05/31/2016 ANN-MARIE DIMAS MD Ot E66. 9 OBESITY, UNSPECIFIED 05/31/2016 ANN-MARIE DIMAS MD Ot G47. 33 OBSTRUCTIVE SLEEP APNEA (ADULT) (PEDIATR 05/31/2016 ANN-MARIE DIMAS MD Ot I10 ESSENTIAL (PRIMARY) HYPERTENSION 05/31/2016 ANN-MARIE DIMAS MD Ot R06. 09 OTHER FORMS OF DYSPNEA 05/31/2016 JUDIE SIEGEL, ANN-MARIE Gonzalez Ot R07. 89 OTHER CHEST PAIN 06/02/2016 JORDAN ASTUDILLO DO Ot E66. 9 OBESITY, UNSPECIFIED 06/02/2016 JORDAN ASTUDILLO DO Ot G47. 33 OBSTRUCTIVE SLEEP APNEA (ADULT) (PEDIATR 06/02/2016 JORDAN ASTUDILLO DO Ot J44. 9 CHRONIC OBSTRUCTIVE PULMONARY DISEASE, U 06/02/2016 JORDAN ASTUDILLO DO Ot R53. 83 OTHER FATIGUE 06/05/2016 JORDAN ASTUDILLO DO Ot E66. 9 OBESITY, UNSPECIFIED 06/05/2016 EFREN ASTUDILLO DOSON M Ot G47. 33 OBSTRUCTIVE SLEEP APNEA (ADULT) (PEDIATR 06/05/2016 JORDAN ASTUDILLO DO M Ot J44. 9 CHRONIC OBSTRUCTIVE PULMONARY DISEASE, U 06/05/2016 EFREN ASTUDILLO DOSON M Ot R53. 83 OTHER FATIGUE 06/17/2016 JOSE LOYA MD R Ot Z01.8 10 ENCOUNTER FOR PREPROCEDURAL CARDIOVASCUL 06/17/2016 ANN-MARIE DIMAS MD Ot E66. 9 OBESITY, UNSPECIFIED 06/17/2016 ANN-MARIE DIMAS MD Ot G47. 33 OBSTRUCTIVE SLEEP APNEA (ADULT) (PEDIATR 06/17/2016 ANN-MARIE DIMAS MD Ot I10 ESSENTIAL (PRIMARY) HYPERTENSION 06/17/2016 ANN-MARIE DIMAS MD Ot R06. 09 OTHER FORMS OF DYSPNEA 06/17/2016 ANN-MARIE DIMAS MD Ot R07. 89 OTHER CHEST PAIN 06/22/2016 JOSE LOYA MD Ot Z01.8 10 ENCOUNTER FOR PREPROCEDURAL CARDIOVASCUL 06/22/2016 ANN-MARIE DIMAS MD Ot E66. 9 OBESITY, UNSPECIFIED 06/22/2016 ANN-MARIE DIMAS MD, Ot G47. 33 OBSTRUCTIVE SLEEP APNEA (ADULT) (PEDIATR 06/22/2016 ANN-MARIE DIMAS MD, Ot I10 ESSENTIAL (PRIMARY) HYPERTENSION 06/22/2016 ANN-MARIE DIMAS MD Ot R06. 09 OTHER FORMS OF DYSPNEA 06/22/2016 ANN-MARIE DIMAS MD Ot R07. 89 OTHER CHEST PAIN 01/22/2017 Ot 789.01 ABD OMINAL PAIN, RIGHT UPPER QUADRANT 01/22/2017 ANUSHKA LARSON MD Ot 596.5 1 HYPERTONICITY OF BLADDER 01/22/2017 ANUSHKA LARSON MD Ot 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 01/22/2017 ANUSHKA LARSON MD Ot 788.3 0 UNSPECIFIED URINARY INCONTINENCE 01/22/2017 ANUSHKA LARSON MD Ot V72.6 3 PRE-PROCEDURAL LABORATORY EXAMINATION 01/22/2017 ANUSHKA LARSON MD Ot V74.8 SCREEN-BACTERIAL DIS NEC 01/22/2017 ANN-MARIE DIMAS MD Ot 401. 9 HYPERTENSION NOS 01/22/2017 ANN-MARIE DIMAS MD Ot 786. 09 RESPIRATORY ABNORM NEC 01/22/2017 ANN-MARIE DIMAS MD Ot 786. 59 CHEST PAIN NEC 01/22/2017 ANN-MARIE DIMAS MD Ot E66. 9 OBESITY, UNSPECIFIED 01/22/2017 ANN-MARIE DIMAS MD Ot I10 ESSENTIAL (PRIMARY) HYPERTENSION 01/22/2017 ANN-MARIE DIMAS MD Ot R06. 00 DYSPNEA, UNSPECIFIED 01/22/2017 JUDIE SIEGEL, ANN-MARIE Gonzalez Ot R07. 9 CHEST PAIN, UNSPECIFIED 01/22/2017 JUDIE SIEGEL, ANN-MARIE Gonzalez Ot Z68. 41 BODY MASS INDEX (BMI) 40.0-44.9, ADULT 01/22/2017 ANN-MARIE DIMAS MD Ot 237. 3 [facility] 01/22/2017 RITO SIEGEL, JAMIL Keita Ot 784.2 SWELLING IN HEAD NECK 01/22/2017 FREDA AYALA DO Ot R10.11 RIGHT UPPER QUADRANT PAIN 01/22/2017 CESAR SIEGEL, JAYDA Oro Ot R11.2 NAUSEA WITH VOMITING, UNSPECIFIED 01/22/2017 CESAR SIEGEL, JAYDA Oro Ot R13.10 DYSPHAGIA, UNSPECIFIED 01/22/2017 CESAR SIEGEL, JAYDA Oro Ot R19.7 DIARRHEA, UNSPECIFIED 01/22/2017 CESAR SIEGEL, JAYDA Oro Ot Z01.818 ENCOUNTER FOR OTHER PREPROCEDURAL EXAMIN 01/22/2017 VINCENZO SIEGEL, JOSE Graf Ot Z01.8 10 ENCOUNTER FOR PREPROCEDURAL CARDIOVASCUL 01/22/2017 JORDAN ASTUDILLO DO Ot E66. 9 OBESITY, UNSPECIFIED 01/22/2017 JORDAN ASTUDILLO DO Ot G47. 33 OBSTRUCTIVE SLEEP APNEA (ADULT) (PEDIATR 01/22/2017 JORDAN ASTUDILLO DO Ot J44. 9 CHRONIC OBSTRUCTIVE PULMONARY DISEASE, U 01/22/2017 JORDAN ASTUDILLO DO Ot R53. 83 OTHER FATIGUE 01/22/2017 JORDAN ASTUDILLO DO Ot E66. 9 OBESITY, UNSPECIFIED 01/22/2017 JORDAN ASTUDILLO DO Ot G47. 33 OBSTRUCTIVE SLEEP APNEA (ADULT) (PEDIATR 01/22/2017 JORDAN ASTUDILLO DO, Ot J44. 9 CHRONIC OBSTRUCTIVE PULMONARY DISEASE, U 01/22/2017 JORDAN ASTUDILLO DO Ot R53. 83 OTHER FATIGUE 01/22/2017 ANN-MARIE DIMAS MD Ot E66. 9 OBESITY, UNSPECIFIED 01/22/2017 ANN-MARIE DIMAS MD Ot G47. 33 OBSTRUCTIVE SLEEP APNEA (ADULT) (PEDIATR 01/22/2017 ANN-MARIE DIMAS MD Ot I10 ESSENTIAL (PRIMARY) HYPERTENSION 01/22/2017 ANN-MARIE DIMAS MD Ot R06. 09 OTHER FORMS OF DYSPNEA 01/22/2017 ANN-MARIE DIMAS MD Ot R07. 89 OTHER CHEST PAIN 03/04/2017 MALINDA WEBBER DO Ot 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 OR RADICULOPA 05/21/2017 ANN-MARIE DIMAS MD Ot E13. 9 OTHER SPECIFIED DIABETES MELLITUS WITHOU 05/21/2017 ANN-MARIE DIMAS MD Ot G47. 33 OBSTRUCTIVE SLEEP APNEA (ADULT) (PEDIATR 05/21/2017 ANN-MARIE DIMAS MD Ot I10 ESSENTIAL (PRIMARY) HYPERTENSION 05/21/2017 ANN-MARIE DIMAS MD Ot R07. 89 OTHER CHEST PAIN 05/21/2017 ANN-MARIE DIMAS MD Ot R60. 9 EDEMA, UNSPECIFIED 05/21/2017 ANN-MARIE DIMAS MD Ot E13. 9 OTHER SPECIFIED DIABETES MELLITUS WITHOU 05/21/2017 ANN-MARIE DIMAS MD Ot G47. 33 OBSTRUCTIVE SLEEP APNEA (ADULT) (PEDIATR 05/21/2017 ANN-MARIE DIMAS MD Ot I10 ESSENTIAL (PRIMARY) HYPERTENSION 05/21/2017 ANN-MARIE DIMAS MD Ot R07. 89 OTHER CHEST PAIN 05/21/2017 ANNM-ARIE DIMAS MD Ot R60. 9 EDEMA, UNSPECIFIED 06/11/2017 ANN-MARIE DIMAS MD Ot E13. 9 OTHER SPECIFIED DIABETES MELLITUS WITHOU 06/11/2017 ANN-MARIE DIMAS MD Ot G47. 33 OBSTRUCTIVE SLEEP APNEA (ADULT) (PEDIATR 06/11/2017 ANN-MARIE DIMAS MD Ot I10 ESSENTIAL (PRIMARY) HYPERTENSION 06/11/2017 ANN-MARIE DIMAS MD Ot R07. 89 OTHER CHEST PAIN 06/11/2017 ANN-MARIE DIMAS MD Ot R60. 9 EDEMA, UNSPECIFIED 06/28/2017 ANN-MARIE DIMAS MD Ot E13. 9 OTHER SPECIFIED DIABETES MELLITUS WITHOU 06/28/2017 ANN-MARIE DIMAS MD Ot G47. 33 OBSTRUCTIVE SLEEP APNEA (ADULT) (PEDIATR 06/28/2017 ANN-MARIE DIMAS MD Ot I10 ESSENTIAL (PRIMARY) HYPERTENSION 06/28/2017 ANN-MARIE DIMAS MD Ot R07. 89 OTHER CHEST PAIN 06/28/2017 ANN-MARIE DIMAS MD Ot R60. 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 9 HYPERTENSION NOS 12/24/2017 ANN-MARIE DIMAS MD Ot 786. 09 RESPIRATORY ABNORM NEC 12/24/2017 ANN-MARIE DIMAS MD Ot 786. 59 CHEST PAIN NEC 12/24/2017 ANN-MARIE DIMAS MD Ot E66. 9 OBESITY, UNSPECIFIED 12/24/2017 ANN-MARIE DIMAS MD Ot I10 ESSENTIAL (PRIMARY) HYPERTENSION 12/24/2017 ANN-MARIE DIMAS MD Ot R06. 00 DYSPNEA, UNSPECIFIED 12/24/2017 ANN-MARIE DIMAS MD Ot R07. 9 CHEST PAIN, UNSPECIFIED 12/24/2017 ANN-MARIE DIMAS MD Ot Z68. 41 BODY MASS INDEX (BMI) 40.0-44.9, ADULT 12/24/2017 ANN-MARIE DIMAS MD Ot 237. 3 [facility] MARIANA PARAGANG 12/24/2017 RITO SIEGEL, [...] Z01.818 ENCOUNTER FOR OTHER PREPROCEDURAL EXAMIN 12/24/2017 JOSE LOYA MD Ot Z01.8 10 ENCOUNTER FOR PREPROCEDURAL CARDIOVASCUL 12/24/2017 JORDAN ASTUDILLO DO Ot E66. 9 OBESITY, UNSPECIFIED 12/24/2017 JORDAN ASTUDILLO DO Ot G47. 33 OBSTRUCTIVE SLEEP APNEA (ADULT) (PEDIATR 12/24/2017 BAUDILIO , JORDAN M Ot J44. 9 CHRONIC OBSTRUCTIVE PULMONARY DISEASE, U 12/24/2017 JORDAN ASTUDILLO DO M Ot R53. 83 OTHER FATIGUE 12/24/2017 BAUDILIO DO, JORDAN M Ot E66. 9 OBESITY, UNSPECIFIED 12/24/2017 BAUDILIOPAMELLA ORONA JORDAN M Ot G47. 33 OBSTRUCTIVE SLEEP APNEA (ADULT) (PEDIATR 12/24/2017 BAUDILIOJORDAN CAN DO M Ot J44. 9 CHRONIC OBSTRUCTIVE PULMONARY DISEASE, U 12/24/2017 BAUDILIO DOEFRENJORDAN M Ot R53. 83 OTHER FATIGUE 12/24/2017 ANN-MARIE DIMAS MD Ot E66. 9 OBESITY, UNSPECIFIED 12/24/2017 ANN-MARIE DIMAS MD Ot G47. 33 OBSTRUCTIVE SLEEP APNEA (ADULT) (PEDIATR 12/24/2017 ANN-MARIE DIMAS MD Ot I10 ESSENTIAL (PRIMARY) HYPERTENSION 12/24/2017 ANN-MARIE DIMAS MD Ot R06. 09 OTHER FORMS OF DYSPNEA 12/24/2017 ANN-MARIE DIMAS MD Ot R07. 89 OTHER CHEST PAIN 12/24/2017 MALINDA WEBBER DO Ot 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 OR RADICULOPA 12/24/2017 ANN-MARIE DIMAS MD Ot E13. 9 OTHER SPECIFIED DIABETES MELLITUS WITHOU 12/24/2017 ANN-MARIE DIMAS MD Ot G47. 33 OBSTRUCTIVE SLEEP APNEA (ADULT) (PEDIATR 12/24/2017 ANN-MARIE DIMAS MD Ot I10 ESSENTIAL (PRIMARY) HYPERTENSION 12/24/2017 ANN-MARIE DIMAS MD Ot R07. 89 OTHER CHEST PAIN 12/24/2017 ANN-MARIE DIMAS MD Ot R60. 9 EDEMA, UNSPECIFIED 12/24/2017 SOTO STRICKLAND APRN Ot Z12.31 ENCNTR SCREEN MAMMOGRAM FOR MALIGNANT NE 12/27/2017 SOTO STRICKLAND APRN Ot Z12.31 ENCNTR SCREEN MAMMOGRAM FOR MALIGNANT NE 01/14/2018 SOTO STRICKLADN LUBE ATTENDANT Ot Z12.31 ENCNTR SCREEN MAMMOGRAM FOR MALIGNANT NE 01/18/2018 SOTO STRICKLAND LUBE ATTENDANT Ot Z12.31 ENCNTR SCREEN MAMMOGRAM FOR MALIGNANT NE 05/10/2018 CRISTOPHER BEE, SHERI K Ot E78.2 MIXED HYPERLIPIDEMIA 05/10/2018 CRISTOPHER PA, SHERI K Ot G47.33 OBSTRUCTIVE SLEEP APNEA (ADULT) (PEDIATR 05/10/2018 MORENOMAIKEL PA, SHERI K Ot I10 ESSENTIAL (PRIMARY) HYPERTENSION 05/10/2018 CRISTOPHER PA, SHERI K Ot R07.89 OTHER CHEST PAIN 05/29/2018 CRISTOPHER PA, SHERI K Ot E78.2 MIXED HYPERLIPIDEMIA 05/29/2018 CRISTOPHER PA, SHERI K Ot G47.33 OBSTRUCTIVE SLEEP APNEA (ADULT) (PEDIATR 05/29/2018 CRISTOPHER PA, SHERI K Ot I10 ESSENTIAL (PRIMARY) HYPERTENSION 05/29/2018 CRISTOPHER PA, SHERI K Ot R07.89 OTHER CHEST PAIN 05/30/2018 CRISTOPHER PA, SHERI K Ot E78.2 MIXED HYPERLIPIDEMIA 05/30/2018 CRISTOPHER BEE, SHERI K Ot G47.33 OBSTRUCTIVE SLEEP APNEA (ADULT) (PEDIATR 05/30/2018 CRISTOPHER BEE, SHERI K Ot I10 ESSENTIAL (PRIMARY) HYPERTENSION 05/30/2018 CRISTOPHER PA, SHERI K Ot R07.89 OTHER CHEST PAIN 09/01/2018 JUVENTINO SIEGEL, PADMINI Ribera Ot M85 .9 DISORDER OF BONE DENSITY AND STRUCTURE, 09/06/2018 SUSAN GARZA DO Ot E03.9 HYPOTHYROIDISM, UNSPECIFIED 09/06/2018 REBECCA GARZA DOI Ot E11.9 TYPE 2 DIABETES MELLITUS WITHOUT COMPLIC 09/06/2018 SUSAN GARZA DO Ot E66.01 MORBID (SEVERE) OBESITY DUE TO EXCESS CA 09/06/2018 KAYLA ORONA SUSAN Ot E66.9 OBESITY, UNSPECIFIED 09/06/2018 REBECCA GARZA DOI Ot E78.5 HYPERLIPIDEMIA, UNSPECIFIED 09/06/2018 REBECCA GARZA DOI Ot F17.21 0 NICOTINE DEPENDENCE, CIGARETTES, UNCOMPL 09/06/2018 KAYLA ORONA SUSAN Ot F20.9 SCHIZOPHRENIA, UNSPECIFIED 09/06/2018 KAYLA ORONA SUSAN Ot F32.9 MAJOR DEPRESSIVE DISORDER, SINGLE EPISOD 09/06/2018 REBECCA GARZA DOI Ot F41.9 ANXIETY DISORDER, UNSPECIFIED 09/06/2018 SUSAN GARZA DO Ot G47.33 OBSTRUCTIVE SLEEP APNEA (ADULT) (PEDIATR 09/06/2018 SUSAN GARZA DO Ot I10 ESSENTIAL (PRIMARY) HYPERTENSION 09/06/2018 SUSAN GARZA DO Ot I65.29 OCCLUSION AND STENOSIS OF UNSPECIFIED CA 09/06/2018 SUSAN GARZA DO Ot J44.9 CHRONIC OBSTRUCTIVE PULMONARY DISEASE, U 09/06/2018 SUSAN GARZA DO Ot K59.00 CONSTIPATION, UNSPECIFIED 09/06/2018 SUSAN GARZA DO Ot M25.50 PAIN IN UNSPECIFIED JOINT 09/06/2018 SUSAN GARZA DO Ot M54.5 LOW BACK PAIN 09/06/2018 SUSAN GARZA DO Ot M54.6 PAIN IN THORACIC SPINE 09/06/2018 SUSAN GARZA DO Ot S82.85 1A DISPLACED TRIMALLEOLAR FRACTURE OF RIGHT 09/06/2018 SUSAN GARZA DO Ot S93.43 1A SPRAIN OF TIBIOFIBULAR LIGAMENT OF RIGHT 09/06/2018 SUSAN GARZA DO Ot W19.XX XA UNSPECIFIED FALL, INITIAL ENCOUNTER 09/06/2018 SUSAN GARZA DO Ot Z68.41 BODY MASS INDEX (BMI) 40.0-44.9, ADULT 09/06/2018 SUSAN GARZA DO Ot Z82.49 FAMILY HX OF ISCHEM HEART DIS AND OTH DI 09/06/2018 SUSAN GARZA DO Ot Z87.39 PERSONAL HISTORY OF DISEASES OF THE MS S 09/06/2018 SUSAN GARZA DO Ot Z88.0 ALLERGY STATUS TO PENICILLIN 09/06/2018 SUSAN GARZA DO Ot Z88.2 ALLERGY STATUS TO SULFONAMIDES STATUS 09/06/2018 SUSAN GARZA DO Ot Z98.89 0 OTHER SPECIFIED POSTPROCEDURAL STATES 09/06/2018 SUSAN GARZA DO Ot Z99.81 DEPENDENCE ON SUPPLEMENTAL OXYGEN 09/08/2018 JUVENTINO SIEGEL, PADMINI Ribera Ot M85 .9 DISORDER OF BONE DENSITY AND STRUCTURE, 09/13/2018 SUSAN GARZA DO Ot E03.9 HYPOTHYROIDISM, UNSPECIFIED 09/13/2018 SUSAN AGRZA DO Ot E11.9 TYPE 2 DIABETES MELLITUS WITHOUT COMPLIC 09/13/2018 SUSAN GARZA DO Ot E66.9 OBESITY, UNSPECIFIED 09/13/2018 GARZACACHORRO ORONA SUSAN Ot F20.9 SCHIZOPHRENIA, UNSPECIFIED 09/13/2018 GARZA DO SUSAN Ot F41.9 ANXIETY DISORDER, UNSPECIFIED 09/13/2018 GARZA DO SUSAN Ot G47.33 OBSTRUCTIVE SLEEP APNEA (ADULT) (PEDIATR 09/13/2018 KAYLA ORONA SUSAN Ot I10 ESSENTIAL (PRIMARY) HYPERTENSION 09/13/2018 GARZA DO SUSAN Ot S82.85 1D DISPL TRIMALLEOL FX R LOW LEG, SUBS FOR 09/13/2018 KAYLA ORONA SUSAN Ot Z47.89 ENCOUNTER FOR OTHER ORTHOPEDIC AFTERCARE 09/13/2018 KAYLA ORONA SUSAN Ot Z68.41 BODY MASS INDEX (BMI) 40.0-44.9, ADULT 09/13/2018 KAYLA ORONA SUSAN Ot Z99.81 DEPENDENCE ON SUPPLEMENTAL OXYGEN 09/14/2018 PADMINI JAUREGUI MD, Ot M85 .9 DISORDER OF BONE DENSITY AND STRUCTURE, 09/14/2018 PADMINI JAUREGUI MD Ot M80.00XA AGE-REL OSTEOPOR W CURRENT PATH FRACTURE 09/23/2018 PADMINI JAUREGUI MD Ot M80.00XA AGE-REL OSTEOPOR W CURRENT PATH FRACTURE 10/06/2018 MYLES CINTRON MD Ot S82.851D DISPL TRIMALLEOL FX R LOW LEG, SUBS FOR 10/06/2018 MYLES CINTRON MD Ot W19.XXXD UNSPECIFIED FALL, SUBSEQUENT ENCOUNTER 10/12/2018 MYLES CINTRON MD Ot S82.851D DISPL TRIMALLEOL FX R LOW LEG, SUBS FOR 10/12/2018 MYLES CINTRON MD Ot W19.XXXD UNSPECIFIED FALL, SUBSEQUENT ENCOUNTER 10/13/2018 MYLES CINTRON MD Ot S82.851D DISPL TRIMALLEOL FX R LOW LEG, SUBS FOR 10/13/2018 MYLES CINTRON MD Ot W19.XXXD UNSPECIFIED FALL, SUBSEQUENT ENCOUNTER 10/14/2018 MYLES CINTRON MD Ot S82.851D DISPL TRIMALLEOL FX R LOW LEG, SUBS FOR 10/14/2018 MYLES CINTRON MD Ot W19.XXXD UNSPECIFIED FALL, SUBSEQUENT ENCOUNTER 11/01/2018 MYLES CINTRON MD Ot S82.851D DISPL TRIMALLEOL FX R LOW LEG, SUBS FOR 11/01/2018 MYLES CINTRON MD Ot W19.XXXD UNSPECIFIED FALL, SUBSEQUENT ENCOUNTER 11/03/2018 MYLES CINTRON MD Ot S82.851D DISPL TRIMALLEOL FX R LOW LEG, SUBS FOR 11/03/2018 MYLES CINTRON MD Ot W19.XXXD UNSPECIFIED FALL, SUBSEQUENT ENCOUNTER 11/08/2018 JUVENTINO SIEGEL, PADMINI Ribera Ot M80.00XA AGE-REL OSTEOPOR W CURRENT PATH FRACTURE 11/14/2018 MYLES CINTRON MD Ot S82.851D DISPL TRIMALLEOL FX R LOW LEG, SUBS FOR 11/14/2018 MYLES CINTRON MD Ot W19.XXXD UNSPECIFIED FALL, SUBSEQUENT ENCOUNTER 11/23/2018 Ot S82.851D D ISPL TRIMALLEOL FX R LOW LEG, SUBS FOR 12/02/2018 PADMINI JAUREGUI MD Ot M80.00XA AGE-REL OSTEOPOR W CURRENT PATH FRACTURE 12/02/2018 PADMINI JAUREGUI MD Ot M85.89 OTH DISRD OF BONE DENSITY AND STRUCTURE, 12/02/2018 PADMINI JAUREGUI MD Ot Z13.820 ENCOUNTER FOR SCREENING FOR OSTEOPOROSIS 12/13/2018 Ot S82.851D D ISPL TRIMALLEOL FX R LOW LEG, SUBS FOR 12/20/2018 MYLES CINTRON MD Ot S82.851D DISPL TRIMALLEOL FX R LOW LEG, SUBS FOR 12/20/2018 MYLES CINTRON MD Ot W19.XXXD UNSPECIFIED FALL, SUBSEQUENT ENCOUNTER 01/13/2019 JOSE LOYA MD Ot Z12.3 1 ENCNTR SCREEN MAMMOGRAM FOR MALIGNANT NE 01/13/2019 MYLES CINTRON MD Ot S82.851D DISPL TRIMALLEOL FX R LOW LEG, SUBS FOR 01/13/2019 MYLES CINTRON MD Ot W19.XXXD UNSPECIFIED FALL, SUBSEQUENT ENCOUNTER 01/16/2019 JOSE LOYA MD Ot Z12.3 1 ENCNTR SCREEN MAMMOGRAM FOR MALIGNANT NE 01/26/2019 JOSE LOYA MD Ot Z12.3 1 ENCNTR SCREEN MAMMOGRAM FOR MALIGNANT NE 06/01/2019 JUDIE SIEGEL, ANN-MARIE Gonzalez Ot 401. 9 HYPERTENSION NOS 06/01/2019 UJDIE SIEGEL, ANN-MARIE Gonzalez Ot 786. 09 RESPIRATORY ABNORM NEC 06/01/2019 JUDIE SIEGEL, ANN-MARIE Gonzalez Ot 786. 59 CHEST PAIN NEC 06/01/2019 ANN-MARIE DIMAS MD Ot E66. 9 OBESITY, UNSPECIFIED 06/01/2019 ANN-MARIE DIMAS MD Ot I10 ESSENTIAL (PRIMARY) HYPERTENSION 06/01/2019 ANN-MARIE DIMAS MD Ot R06. 00 DYSPNEA, UNSPECIFIED 06/01/2019 ANN-MARIE DIMAS MD Ot R07. 9 CHEST PAIN, UNSPECIFIED 06/01/2019 ANN-MARIE DIMAS MD Ot Z68. 41 BODY MASS INDEX (BMI) 40.0-44.9, ADULT 06/01/2019 ANN-MARIE DIMAS MD Ot 237. 3 [facility] 06/01/2019 RITO SIEGEL, JAMIL Keita Ot 784.2 SWELLING IN HEAD NECK 06/01/2019 FREDA AYALA DO Ot R10.11 RIGHT UPPER QUADRANT PAIN 06/01/2019 CESAR SIEGEL, JAYDA Oro Ot R11.2 NAUSEA WITH VOMITING, UNSPECIFIED 06/01/2019 CESAR SIEGEL, JAYDA Oro Ot R13.10 DYSPHAGIA, UNSPECIFIED 06/01/2019 CESAR SIEGEL, JAYDA Oro Ot R19.7 DIARRHEA, UNSPECIFIED 06/01/2019 CESAR SIEGEL, JAYDA Oro Ot Z01.818 ENCOUNTER FOR OTHER PREPROCEDURAL EXAMIN 06/01/2019 VINCENZO SIEGEL, JOSE Graf Ot Z01.8 10 ENCOUNTER FOR PREPROCEDURAL CARDIOVASCUL 06/01/2019 JORDAN ASTUDILLO DO Ot E66. 9 OBESITY, UNSPECIFIED 06/01/2019 JORDAN ASTUDILLO DO Ot G47. 33 OBSTRUCTIVE SLEEP APNEA (ADULT) (PEDIATR 06/01/2019 JORDAN ASTUDILLO DO Ot J44. 9 CHRONIC OBSTRUCTIVE PULMONARY DISEASE, U 06/01/2019 JORDAN ASTUDILLO DO Ot R53. 83 OTHER FATIGUE 06/01/2019 JORDAN ASTUDILLO DO Ot E66. 9 OBESITY, UNSPECIFIED 06/01/2019 JORDAN ASTUDILLO DO Ot G47. 33 OBSTRUCTIVE SLEEP APNEA (ADULT) (PEDIATR 06/01/2019 JORDAN ASTUDILLO DO, Ot J44. 9 CHRONIC OBSTRUCTIVE PULMONARY DISEASE, U 06/01/2019 BAUDILIO DO JORDAN Preethi Ot R53. 83 OTHER FATIGUE 06/01/2019 ANN-MARIE DIMAS MD Ot E66. 9 OBESITY, UNSPECIFIED 06/01/2019 ANN-MARIE DIMAS MD, Ot G47. 33 OBSTRUCTIVE SLEEP APNEA (ADULT) (PEDIATR 06/01/2019 ANN-MARIE DIMAS MD Ot I10 ESSENTIAL (PRIMARY) HYPERTENSION 06/01/2019 ANN-MARIE DIMAS MD Ot R06. 09 OTHER FORMS OF DYSPNEA 06/01/2019 ANN-MARIE DIMAS MD Ot R07. 89 OTHER CHEST PAIN 06/01/2019 MALINDA WEBBER DO Ot 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 OR RADICULOPA 06/01/2019 ANN-MARIE DIMAS MD Ot E13. 9 OTHER SPECIFIED DIABETES MELLITUS WITHOU 06/01/2019 ANN-MARIE DIMAS MD, Ot G47. 33 OBSTRUCTIVE SLEEP APNEA (ADULT) (PEDIATR 06/01/2019 ANN-MARIE DIMAS MD, Ot I10 ESSENTIAL (PRIMARY) HYPERTENSION 06/01/2019 ANN-MARIE DIMAS MD Ot R07. 89 OTHER CHEST PAIN 06/01/2019 ANN-MARIE DIMAS MD Ot R60. 9 EDEMA, UNSPECIFIED 06/01/2019 SOTO STRICKLAND APRN Ot Z12.31 ENCNTR SCREEN MAMMOGRAM FOR MALIGNANT NE 06/01/2019 SHERI GIBBONS Ot E78.2 MIXED HYPERLIPIDEMIA 06/01/2019 SHERI GIBBONS Ot G47.33 OBSTRUCTIVE SLEEP APNEA (ADULT) (PEDIATR 06/01/2019 SHERI GIBBONS Ot I10 ESSENTIAL (PRIMARY) HYPERTENSION 06/01/2019 SHERI GIBBONS Ot R07.89 OTHER CHEST PAIN 06/01/2019 PADMINI JAUREGUI MD Ot M80.00XA AGE-REL OSTEOPOR W CURRENT PATH FRACTURE 06/01/2019 PADMINI JAUREGUI MD, Ot M85.89 OTH DISRD OF BONE DENSITY AND STRUCTURE, 06/01/2019 PADMINI JAUREGUI MD, Ot Z13.820 ENCOUNTER FOR SCREENING FOR OSTEOPOROSIS 06/01/2019 MYLES CINTRON MD Ot S82.851D DISPL TRIMALLEOL FX R LOW LEG, SUBS FOR 06/01/2019 MYLES CINTRON MD Ot W19.XXXD UNSPECIFIED FALL, SUBSEQUENT ENCOUNTER 06/01/2019 MYLES CINTRON MD Ot S82.851D DISPL TRIMALLEOL FX R LOW LEG, SUBS FOR 06/01/2019 MYLES CINTRON MD Ot W19.XXXD UNSPECIFIED FALL, SUBSEQUENT ENCOUNTER 06/01/2019 MYLES CINTRON MD Ot S82.851D DISPL TRIMALLEOL FX R LOW LEG, SUBS FOR 06/01/2019 MYLES CINTRON MD Ot W19.XXXD UNSPECIFIED FALL, SUBSEQUENT ENCOUNTER 06/01/2019 MYLES CINTRON MD Ot S82.851D DISPL TRIMALLEOL FX R LOW LEG, SUBS FOR 06/01/2019 MYLES CINTRON MD Ot W19.XXXD UNSPECIFIED FALL, SUBSEQUENT ENCOUNTER 06/01/2019 Ot S82.851D D ISPL TRIMALLEOL FX R LOW LEG, SUBS FOR 06/01/2019 MYLES CINTRON MD Ot S82.851D DISPL TRIMALLEOL FX R LOW LEG, SUBS FOR 06/01/2019 MYLES CINTRON MD Ot W19.XXXD UNSPECIFIED FALL, SUBSEQUENT ENCOUNTER 06/01/2019 JOSE LOYA MD Ot Z12.3 1 ENCNTR SCREEN MAMMOGRAM FOR MALIGNANT NE 06/12/2019 ANN-MARIE DIMAS MD Ot 401. 9 HYPERTENSION NOS 06/12/2019 ANN-MARIE DIMAS MD Ot 786. 09 RESPIRATORY ABNORM NEC 06/12/2019 ANN-MARIE DIMAS MD Ot 786. 59 CHEST PAIN NEC 06/12/2019 ANN-MARIE DIMAS MD Ot E66. 9 OBESITY, UNSPECIFIED 06/12/2019 ANN-MARIE DIMAS MD Ot I10 ESSENTIAL (PRIMARY) HYPERTENSION 06/12/2019 ANN-MARIE DIMAS MD Ot R06. 00 DYSPNEA, UNSPECIFIED 06/12/2019 ANN-MARIE DIMAS MD Ot R07. 9 CHEST PAIN, UNSPECIFIED 06/12/2019 ANN-MARIE DIMAS MD Ot Z68. 41 BODY MASS INDEX (BMI) 40.0-44.9, ADULT 06/12/2019 ANN-MARIE DIMAS MD Ot 237. 3 [facility] 06/12/2019 RITO MD, JAMIL S Ot 784.2 SWELLING IN HEAD NECK 06/12/2019 JAMIE ORONA, FREDA Ot R10.11 RIGHT UPPER QUADRANT PAIN 06/12/2019 CESAR SIEGEL, JAYDA Oro Ot R11.2 NAUSEA WITH VOMITING, UNSPECIFIED 06/12/2019 CESAR SIEGEL, JAYDA Oro Ot R13.10 DYSPHAGIA, UNSPECIFIED 06/12/2019 CESAR SIEGEL, JAYDA Oro Ot R19.7 DIARRHEA, UNSPECIFIED 06/12/2019 CESAR SIEGEL, JAYDA Oro Ot Z01.818 ENCOUNTER FOR OTHER PREPROCEDURAL EXAMIN 06/12/2019 VINCENZO SIEGEL, JOSE Graf Ot Z01.8 10 ENCOUNTER FOR PREPROCEDURAL CARDIOVASCUL 06/12/2019 JORDAN ASTUDILLO DO Ot E66. 9 OBESITY, UNSPECIFIED 06/12/2019 JORDAN ASTUDILLO DO Ot G47. 33 OBSTRUCTIVE SLEEP APNEA (ADULT) (PEDIATR 06/12/2019 JORDAN ASTUDILLO DO Ot J44. 9 CHRONIC OBSTRUCTIVE PULMONARY DISEASE, U 06/12/2019 JORDAN ASTUDILLO DO Ot R53. 83 OTHER FATIGUE 06/12/2019 JORDAN ASTUDILLO DO Ot E66. 9 OBESITY, UNSPECIFIED 06/12/2019 JORDAN ASTUDILLO DO Ot G47. 33 OBSTRUCTIVE SLEEP APNEA (ADULT) (PEDIATR 06/12/2019 JORDAN ASTUDILLO DO Ot J44. 9 CHRONIC OBSTRUCTIVE PULMONARY DISEASE, U 06/12/2019 JORDAN ASTUDILLO DO Ot R53. 83 OTHER FATIGUE 06/12/2019 ANN-MARIE DIMAS MD Ot E66. 9 OBESITY, UNSPECIFIED 06/12/2019 ANN-MARIE DIMAS MD Ot G47. 33 OBSTRUCTIVE SLEEP APNEA (ADULT) (PEDIATR 06/12/2019 ANN-MARIE DIMAS MD Ot I10 ESSENTIAL (PRIMARY) HYPERTENSION 06/12/2019 ANN-MARIE DIMAS MD Ot R06. 09 OTHER FORMS OF DYSPNEA 06/12/2019 ANN-MARIE DIMAS MD Ot R07. 89 OTHER CHEST PAIN 06/12/2019 MALINDA WEBBER DO Ot 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 OR RADICULOPA 06/12/2019 ANN-MARIE DIMAS MD Ot E13. 9 OTHER SPECIFIED DIABETES MELLITUS WITHOU 06/12/2019 ANN-MARIE DIMAS MD Ot G47. 33 OBSTRUCTIVE SLEEP APNEA (ADULT) (PEDIATR 06/12/2019 JUDIE SIEGEL, ANN-MARIE Gonzalez Ot I10 ESSENTIAL (PRIMARY) HYPERTENSION 06/12/2019 JUDIE SIEGEL, ANN-MARIE Gonzalez Ot R07. 89 OTHER CHEST PAIN 06/12/2019 JUDIE SIEGEL, ANN-MARIE Gonzalez Ot R60. 9 EDEMA, UNSPECIFIED 06/12/2019 SOTO STRICKLAND [place] Ot Z12.31 ENCNTR SCREEN MAMMOGRAM FOR MALIGNANT NE 06/12/2019 CRISTOPHER PA, SHERI Johnson Ot E78.2 MIXED HYPERLIPIDEMIA 06/12/2019 CRISTOPHER BEE, SHERI Johnson Ot G47.33 OBSTRUCTIVE SLEEP APNEA (ADULT) (PEDIATR 06/12/2019 CRISTOPHER BEE, SHERI Johnson Ot I10 ESSENTIAL (PRIMARY) HYPERTENSION 06/12/2019 CRISTOPHER BEE, SHERI Johnson Ot R07.89 OTHER CHEST PAIN 06/12/2019 PADMINI JAUREGUI MD Ot M80.00XA AGE-REL OSTEOPOR W CURRENT PATH FRACTURE 06/12/2019 PADMINI JAUREGUI MD, Ot M85.89 OTH DISRD OF BONE DENSITY AND STRUCTURE, 06/12/2019 PDAMINI JAUREGUI MD Ot Z13.820 ENCOUNTER FOR SCREENING FOR OSTEOPOROSIS 06/12/2019 MYLES CINTRON MD Ot S82.851D DISPL TRIMALLEOL FX R LOW LEG, SUBS FOR 06/12/2019 MYLES CINTRON MD Ot W19.XXXD UNSPECIFIED FALL, SUBSEQUENT ENCOUNTER 06/12/2019 MYLES CINTRON MD Ot S82.851D DISPL TRIMALLEOL FX R LOW LEG, SUBS FOR 06/12/2019 MYLES CINTRON MD Ot W19.XXXD UNSPECIFIED FALL, SUBSEQUENT ENCOUNTER 06/12/2019 MYLES CINTRON MD Ot S82.851D DISPL TRIMALLEOL FX R LOW LEG, SUBS FOR 06/12/2019 MYLES CINTRON MD Ot W19.XXXD UNSPECIFIED FALL, SUBSEQUENT ENCOUNTER 06/12/2019 MYLES CINTRON MD Ot S82.851D DISPL TRIMALLEOL FX R LOW LEG, SUBS FOR 06/12/2019 MYLES CINTRON MD Ot W19.XXXD UNSPECIFIED FALL, SUBSEQUENT ENCOUNTER 06/12/2019 Ot S82.851D D ISPL TRIMALLEOL FX R LOW LEG, SUBS FOR 06/12/2019 MYLES CINTRON MD Ot S82.851D DISPL TRIMALLEOL FX R LOW LEG, SUBS FOR 06/12/2019 MYLES CINTRON MD Ot W19.XXXD UNSPECIFIED FALL, SUBSEQUENT ENCOUNTER 06/12/2019 VINCENZO SIEGEL, JOSE Graf Ot Z12.3 1 ENCNTR SCREEN MAMMOGRAM FOR MALIGNANT NE 06/12/2019 JUDIE SIEGEL, ANN-MARIE Gonzalez Ot 401. 9 HYPERTENSION NOS 06/12/2019 JUDIE SIEGEL, ANN-MARIE Gonzalez Ot 786. 09 RESPIRATORY ABNORM NEC 06/12/2019 ANN-MARIE DIMAS MD Ot 786. 59 CHEST PAIN NEC 06/12/2019 ANN-MARIE DIMAS MD Ot E66. 9 OBESITY, UNSPECIFIED 06/12/2019 JUDIE SIEGEL, ANN-MARIE Gonzalez Ot I10 ESSENTIAL (PRIMARY) HYPERTENSION 06/12/2019 ANN-MARIE DIMAS MD Ot R06. 00 DYSPNEA, UNSPECIFIED 06/12/2019 ANN-MARIE DIMAS MD Ot R07. 9 CHEST PAIN, UNSPECIFIED 06/12/2019 JUDIE SIEGEL, ANN-MARIE Gonzalez Ot Z68. 41 BODY MASS INDEX (BMI) 40.0-44.9, ADULT 06/12/2019 ANN-MARIE DIMAS MD Ot 237. 3 [facility] 06/12/2019 RITO SIEGEL, JAMIL Keita Ot 784.2 SWELLING IN HEAD NECK 06/12/2019 FREDA AYALA DO Ot R10.11 RIGHT UPPER QUADRANT PAIN 06/12/2019 CESAR SIEGEL, JAYDA Oro Ot R11.2 NAUSEA WITH VOMITING, UNSPECIFIED 06/12/2019 CESAR SIEGEL, JAYDA Oro Ot R13.10 DYSPHAGIA, UNSPECIFIED 06/12/2019 CESAR SIEGEL, JAYDA Oro Ot R19.7 DIARRHEA, UNSPECIFIED 06/12/2019 CESAR SIEGEL, JAYDA Oro Ot Z01.818 ENCOUNTER FOR OTHER PREPROCEDURAL EXAMIN 06/12/2019 JOSE LOYA MD Ot Z01.8 10 ENCOUNTER FOR PREPROCEDURAL CARDIOVASCUL 06/12/2019 JORDAN ASTUDILLO DO Ot E66. 9 OBESITY, UNSPECIFIED 06/12/2019 JORDAN ASTUDILLO DO Ot G47. 33 OBSTRUCTIVE SLEEP APNEA (ADULT) (PEDIATR 06/12/2019 JORDAN ASTUDILLO DO Ot J44. 9 CHRONIC OBSTRUCTIVE PULMONARY DISEASE, U 06/12/2019 JORDAN ASTUDILLO DO Ot R53. 83 OTHER FATIGUE 06/12/2019 BAUDILIO ORONA, JORDAN Oro Ot E66. 9 OBESITY, UNSPECIFIED 06/12/2019 JORDAN ASTUDILLO DO Ot G47. 33 OBSTRUCTIVE SLEEP APNEA (ADULT) (PEDIATR 06/12/2019 JORDAN ASTUDILLO DO Ot J44. 9 CHRONIC OBSTRUCTIVE PULMONARY DISEASE, U 06/12/2019 BAUDILIO DO, JORDAN Oro Ot R53. 83 OTHER FATIGUE 06/12/2019 ANN-MARIE DIMAS MD Ot E66. 9 OBESITY, UNSPECIFIED 06/12/2019 ANN-MARIE DIMAS MD, Ot G47. 33 OBSTRUCTIVE SLEEP APNEA (ADULT) (PEDIATR 06/12/2019 ANN-MARIE DIMAS MD Ot I10 ESSENTIAL (PRIMARY) HYPERTENSION 06/12/2019 ANN-MARIE DIMAS MD Ot R06. 09 OTHER FORMS OF DYSPNEA 06/12/2019 ANN-MARIE DIMAS MD Ot R07. 89 OTHER CHEST PAIN 06/12/2019 MALINDA WEBBER DO Ot 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 OR RADICULOPA 06/12/2019 ANN-MARIE DIMAS MD Ot E13. 9 OTHER SPECIFIED DIABETES MELLITUS WITHOU 06/12/2019 ANN-MARIE DIMAS MD, Ot G47. 33 OBSTRUCTIVE SLEEP APNEA (ADULT) (PEDIATR 06/12/2019 ANN-MARIE DIMAS MD Ot I10 ESSENTIAL (PRIMARY) HYPERTENSION 06/12/2019 ANN-MARIE DIMAS MD Ot R07. 89 OTHER CHEST PAIN 06/12/2019 ANN-MARIE DIMAS MD Ot R60. 9 EDEMA, UNSPECIFIED 06/12/2019 SOTO STRICKLAND APRN Ot Z12.31 ENCNTR SCREEN MAMMOGRAM FOR MALIGNANT NE 06/12/2019 SHERI GIBBONS Ot E78.2 MIXED HYPERLIPIDEMIA 06/12/2019 SHERI GIBBONS Ot G47.33 OBSTRUCTIVE SLEEP APNEA (ADULT) (PEDIATR 06/12/2019 SHERI GIBBONS Ot I10 ESSENTIAL (PRIMARY) HYPERTENSION 06/12/2019 SHERI GIBBONS Ot R07.89 OTHER CHEST PAIN 06/12/2019 PADMINI JAUREGUI MD Ot M80.00XA AGE-REL OSTEOPOR W CURRENT PATH FRACTURE 06/12/2019 PADMINI JAUREGUI MD Ot M85.89 OTH DISRD OF BONE DENSITY AND STRUCTURE, 06/12/2019 PADMINI JAUREGUI MD Ot Z13.820 ENCOUNTER FOR SCREENING FOR OSTEOPOROSIS 06/12/2019 MYLES CINTRON MD Ot S82.851D DISPL TRIMALLEOL FX R LOW LEG, SUBS FOR 06/12/2019 MYLES CINTRON MD Ot W19.XXXD UNSPECIFIED FALL, SUBSEQUENT ENCOUNTER 06/12/2019 MYLES CINTRON MD Ot S82.851D DISPL TRIMALLEOL FX R LOW LEG, SUBS FOR 06/12/2019 MYLES CINTRON MD Ot W19.XXXD UNSPECIFIED FALL, SUBSEQUENT ENCOUNTER 06/12/2019 MYLES CINTRON MD Ot S82.851D DISPL TRIMALLEOL FX R LOW LEG, SUBS FOR 06/12/2019 MYLES CINTRON MD Ot W19.XXXD UNSPECIFIED FALL, SUBSEQUENT ENCOUNTER 06/12/2019 MYLES CINTRON MD Ot S82.851D DISPL TRIMALLEOL FX R LOW LEG, SUBS FOR 06/12/2019 MYLES CINTRON MD Ot W19.XXXD UNSPECIFIED FALL, SUBSEQUENT ENCOUNTER 06/12/2019 Ot S82.851D D ISPL TRIMALLEOL FX R LOW LEG, SUBS FOR 06/12/2019 MYLES CINTRON MD Ot S82.851D DISPL TRIMALLEOL FX R LOW LEG, SUBS FOR 06/12/2019 MYLSE CINTRON MD Ot W19.XXXD UNSPECIFIED FALL, SUBSEQUENT ENCOUNTER 06/12/2019 JOSE LOYA MD Ot Z12.3 1 ENCNTR SCREEN MAMMOGRAM FOR MALIGNANT NE 06/12/2019 ANN-MARIE DIMAS MD Ot 401. 9 HYPERTENSION NOS 06/12/2019 ANN-MARIE DIMAS MD Ot 786. 09 RESPIRATORY ABNORM NEC 06/12/2019 ANN-MARIE DIMAS MD Ot 786. 59 CHEST PAIN NEC 06/12/2019 ANN-MARIE DIMAS MD Ot E66. 9 OBESITY, UNSPECIFIED 06/12/2019 ANN-MARIE DIMAS MD Ot I10 ESSENTIAL (PRIMARY) HYPERTENSION 06/12/2019 JUDIE SIEGEL, ANN-MARIE Gonzalez Ot R06. 00 DYSPNEA, UNSPECIFIED 06/12/2019 JUDIE SIEGEL, ANN-MARIE Gonzalez Ot R07. 9 CHEST PAIN, UNSPECIFIED 06/12/2019 JUDIE SIEGEL, ANN-MARIE Gonzalez Ot Z68. 41 BODY MASS INDEX (BMI) 40.0-44.9, ADULT 06/12/2019 JUDIE SIEGEL, ANN-MARIE Gonzalez Ot 237. 3 [facility] 06/12/2019 RITO SIEGEL, JAMIL Keita Ot 784.2 SWELLING IN HEAD NECK 06/12/2019 FREDA AYALA DO Ot R10.11 RIGHT UPPER QUADRANT PAIN 06/12/2019 CESAR SIEGEL, JAYDA Oro Ot R11.2 NAUSEA WITH VOMITING, UNSPECIFIED 06/12/2019 CESAR SIEGEL, JAYDA Oro Ot R13.10 DYSPHAGIA, UNSPECIFIED 06/12/2019 CESAR SIEGEL, JAYDA Oro Ot R19.7 DIARRHEA, UNSPECIFIED 06/12/2019 CESAR SIEGEL, JAYDA Oro Ot Z01.818 ENCOUNTER FOR OTHER PREPROCEDURAL EXAMIN 06/12/2019 VINCENZO SIEGEL, JOSE Graf Ot Z01.8 10 ENCOUNTER FOR PREPROCEDURAL CARDIOVASCUL 06/12/2019 JORDAN ASTUDILLO DO Ot E66. 9 OBESITY, UNSPECIFIED 06/12/2019 JORDAN ASTUDILLO DO Ot G47. 33 OBSTRUCTIVE SLEEP APNEA (ADULT) (PEDIATR 06/12/2019 JORDAN ASTUDILLO DO Ot J44. 9 CHRONIC OBSTRUCTIVE PULMONARY DISEASE, U 06/12/2019 JORDAN ASTUDILLO DO Ot R53. 83 OTHER FATIGUE 06/12/2019 JORDAN ASTUDILLO DO Ot E66. 9 OBESITY, UNSPECIFIED 06/12/2019 JORDAN ASTUDILLO DO Ot G47. 33 OBSTRUCTIVE SLEEP APNEA (ADULT) (PEDIATR 06/12/2019 JORDAN ASTUDILLO DO Ot J44. 9 CHRONIC OBSTRUCTIVE PULMONARY DISEASE, U 06/12/2019 JORDAN ASTUDILLO DO Ot R53. 83 OTHER FATIGUE 06/12/2019 JUDIE SIEGEL, ANN-MARIE Gonzalez Ot E66. 9 OBESITY, UNSPECIFIED 06/12/2019 ANN-MARIE DIMAS MD Ot G47. 33 OBSTRUCTIVE SLEEP APNEA (ADULT) (PEDIATR 06/12/2019 JUDIE SIEGEL, ANN-MARIE Gonzalez Ot I10 ESSENTIAL (PRIMARY) HYPERTENSION 06/12/2019 ANN-MARIE DIMAS MD Ot R06. 09 OTHER FORMS OF DYSPNEA 06/12/2019 ANN-MARIE DIMAS MD Ot R07. 89 OTHER CHEST PAIN 06/12/2019 MALINDA WEBBER DO Ot 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 OR RADICULOPA 06/12/2019 ANN-MARIE DIMAS MD Ot E13. 9 OTHER SPECIFIED DIABETES MELLITUS WITHOU 06/12/2019 ANN-MARIE DIMAS MD Ot G47. 33 OBSTRUCTIVE SLEEP APNEA (ADULT) (PEDIATR 06/12/2019 ANN-MARIE DIMAS MD Ot I10 ESSENTIAL (PRIMARY) HYPERTENSION 06/12/2019 ANN-MARIE DIMAS MD Ot R07. 89 OTHER CHEST PAIN 06/12/2019 ANN-MARIE DIMAS MD Ot R60. 9 EDEMA, UNSPECIFIED 06/12/2019 SOTO STRICKLAND APRN Ot Z12.31 ENCNTR SCREEN MAMMOGRAM FOR MALIGNANT NE 06/12/2019 SHERI GIBBONS Ot E78.2 MIXED HYPERLIPIDEMIA 06/12/2019 SHERI GIBBONS Ot G47.33 OBSTRUCTIVE SLEEP APNEA (ADULT) (PEDIATR 06/12/2019 CRISTOPHER BEE, SHERI Johnson Ot I10 ESSENTIAL (PRIMARY) HYPERTENSION 06/12/2019 SHERI GIBBONS Ot R07.89 OTHER CHEST PAIN 06/12/2019 PADMINI JAUREGUI MD, Ot M80.00XA AGE-REL OSTEOPOR W CURRENT PATH FRACTURE 06/12/2019 PADMINI JAUREGUI MD, Ot M85.89 OTH DISRD OF BONE DENSITY AND STRUCTURE, 06/12/2019 PADMINI JAUREGUI MD Ot Z13.820 ENCOUNTER FOR SCREENING FOR OSTEOPOROSIS 06/12/2019 MYLES CINTRON MD Ot S82.851D DISPL TRIMALLEOL FX R LOW LEG, SUBS FOR 06/12/2019 MYLES CINTRON MD Ot W19.XXXD UNSPECIFIED FALL, SUBSEQUENT ENCOUNTER 06/12/2019 MYLES CINTRON MD Ot S82.851D DISPL TRIMALLEOL FX R LOW LEG, SUBS FOR 06/12/2019 MYLES CINTRON MD Ot W19.XXXD UNSPECIFIED FALL, SUBSEQUENT ENCOUNTER 06/12/2019 MYLES CINTRON MD Ot S82.851D DISPL TRIMALLEOL FX R LOW LEG, SUBS FOR 06/12/2019 MYLES CINTRON MD Ot W19.XXXD UNSPECIFIED FALL, SUBSEQUENT ENCOUNTER 06/12/2019 MYLES CINTRON MD Ot S82.851D DISPL TRIMALLEOL FX R LOW LEG, SUBS FOR 06/12/2019 MYLES CINTRON MD Ot W19.XXXD UNSPECIFIED FALL, SUBSEQUENT ENCOUNTER 06/12/2019 Ot S82.851D D ISPL TRIMALLEOL FX R LOW LEG, SUBS FOR 06/12/2019 MYLES CINTRON MD Ot S82.851D DISPL TRIMALLEOL FX R LOW LEG, SUBS FOR 06/12/2019 MYLES CINTRON MD Ot W19.XXXD UNSPECIFIED FALL, SUBSEQUENT ENCOUNTER 06/12/2019 JOSE LOYA MD Ot Z12.3 1 ENCNTR SCREEN MAMMOGRAM FOR MALIGNANT NE 06/13/2019 ANN-MARIE DIMAS MD Ot 401. 9 HYPERTENSION NOS 06/13/2019 ANN-MARIE DIMAS MD Ot 786. 09 RESPIRATORY ABNORM NEC 06/13/2019 ANN-MARIE DIMAS MD Ot 786. 59 CHEST PAIN NEC 06/13/2019 ANN-MARIE DIMAS MD Ot E66. 9 OBESITY, UNSPECIFIED 06/13/2019 ANN-MARIE DIMAS MD Ot I10 ESSENTIAL (PRIMARY) HYPERTENSION 06/13/2019 ANN-MARIE DIMAS MD Ot R06. 00 DYSPNEA, UNSPECIFIED 06/13/2019 ANN-MARIE DIMAS MD Ot R07. 9 CHEST PAIN, UNSPECIFIED 06/13/2019 ANN-MARIE DIMAS MD Ot Z68. 41 BODY MASS INDEX (BMI) 40.0-44.9, ADULT 06/13/2019 ANN-MARIE DIMAS MD Ot 237. 3 [facility]NA PARAGANG 06/13/2019 RITO SIEGEL, JAMIL Keita Ot 784.2 SWELLING IN HEAD NECK 06/13/2019 FREDA AYALA DO Ot R10.11 RIGHT UPPER QUADRANT PAIN 06/13/2019 CESAR SIEGEL, JAYDA Oro Ot R11.2 NAUSEA WITH VOMITING, UNSPECIFIED 06/13/2019 CESAR SIEGEL, JAYDA Oro Ot R13.10 DYSPHAGIA, UNSPECIFIED 06/13/2019 CESAR SIEGEL, JAYDA M Ot R19.7 DIARRHEA, UNSPECIFIED 06/13/2019 CESAR SIEGEL, JAYDA Oro Ot Z01.818 ENCOUNTER FOR OTHER PREPROCEDURAL EXAMIN 06/13/2019 VINCENZO SIEGEL, JOSE Graf Ot Z01.8 10 ENCOUNTER FOR PREPROCEDURAL CARDIOVASCUL 06/13/2019 JORDAN ASTUDILLO DO M Ot E66. 9 OBESITY, UNSPECIFIED 06/13/2019 BAUDILIO DOEFRENJORADN M Ot G47. 33 OBSTRUCTIVE SLEEP APNEA (ADULT) (PEDIATR 06/13/2019 BAUDILIO DO, JORDAN M Ot J44. 9 CHRONIC OBSTRUCTIVE PULMONARY DISEASE, U 06/13/2019 BAUDILIO DO, JORDAN M Ot R53. 83 OTHER FATIGUE 06/13/2019 BAUDILIO DOEFRENJORDAN M Ot E66. 9 OBESITY, UNSPECIFIED 06/13/2019 BAUDILIO DOEFRENJORDAN M Ot G47. 33 OBSTRUCTIVE SLEEP APNEA (ADULT) (PEDIATR 06/13/2019 BAUDILIO DO, JORDAN M Ot J44. 9 CHRONIC OBSTRUCTIVE PULMONARY DISEASE, U 06/13/2019 BAUDILIO DOEFRENJORDAN M Ot R53. 83 OTHER FATIGUE 06/13/2019 ANN-MARIE DIMAS MD Ot E66. 9 OBESITY, UNSPECIFIED 06/13/2019 ANN-MARIE DIMAS MD Ot G47. 33 OBSTRUCTIVE SLEEP APNEA (ADULT) (PEDIATR 06/13/2019 ANN-MARIE DIMAS MD Ot I10 ESSENTIAL (PRIMARY) HYPERTENSION 06/13/2019 ANN-MARIE DIMAS MD Ot R06. 09 OTHER FORMS OF DYSPNEA 06/13/2019 ANN-MARIE DIMAS MD Ot R07. 89 OTHER CHEST PAIN 06/13/2019 MALINDA WEBBER DO Ot 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 OR RADICULOPA 06/13/2019 ANN-MARIE DIMAS MD Ot E13. 9 OTHER SPECIFIED DIABETES MELLITUS WITHOU 06/13/2019 ANN-MARIE DIMAS MD, Ot G47. 33 OBSTRUCTIVE SLEEP APNEA (ADULT) (PEDIATR 06/13/2019 ANN-MARIE DIMAS MD Ot I10 ESSENTIAL (PRIMARY) HYPERTENSION 06/13/2019 ANN-MARIE DIMAS MD Ot R07. 89 OTHER CHEST PAIN 06/13/2019 ANN-MARIE DIMAS MD Ot R60. 9 EDEMA, UNSPECIFIED 06/13/2019 SOTO STRICKLAND APRN Ot Z12.31 ENCNTR SCREEN MAMMOGRAM FOR MALIGNANT NE 06/13/2019 CRISTOPHER BEE, SHERI Johnson Ot E78.2 MIXED HYPERLIPIDEMIA 06/13/2019 CRISTOPHER BEE, SHERI Johnson Ot G47.33 OBSTRUCTIVE SLEEP APNEA (ADULT) (PEDIATR 06/13/2019 SHERI GIBBONS Ot I10 ESSENTIAL (PRIMARY) HYPERTENSION 06/13/2019 CRISTOPHER BEE, SHERI Johnson Ot R07.89 OTHER CHEST PAIN 06/13/2019 JUVENTINO SIEGEL, PADMINI Ribera Ot M80.00XA AGE-REL OSTEOPOR W CURRENT PATH FRACTURE 06/13/2019 PADMINI JAUREGUI MD, Ot M85.89 OTH DISRD OF BONE DENSITY AND STRUCTURE, 06/13/2019 PADMINI JAUREGUI MD, Ot Z13.820 ENCOUNTER FOR SCREENING FOR OSTEOPOROSIS 06/13/2019 MYLES CINTRON MD Ot S82.851D DISPL TRIMALLEOL FX R LOW LEG, SUBS FOR 06/13/2019 MYLES CINTRON MD Ot W19.XXXD UNSPECIFIED FALL, SUBSEQUENT ENCOUNTER 06/13/2019 MYLES CINTRON MD Ot S82.851D DISPL TRIMALLEOL FX R LOW LEG, SUBS FOR 06/13/2019 MYLES CINTRON MD Ot W19.XXXD UNSPECIFIED FALL, SUBSEQUENT ENCOUNTER 06/13/2019 MYLES CINTRON MD Ot S82.851D DISPL TRIMALLEOL FX R LOW LEG, SUBS FOR 06/13/2019 MYLES CINTRON MD Ot W19.XXXD UNSPECIFIED FALL, SUBSEQUENT ENCOUNTER 06/13/2019 MYLES CINTRON MD Ot S82.851D DISPL TRIMALLEOL FX R LOW LEG, SUBS FOR 06/13/2019 MYLES CINTRNO MD Ot W19.XXXD UNSPECIFIED FALL, SUBSEQUENT ENCOUNTER 06/13/2019 Ot S82.851D D ISPL TRIMALLEOL FX R LOW LEG, SUBS FOR 06/13/2019 MYLES CINTRON MD Ot S82.851D DISPL TRIMALLEOL FX R LOW LEG, SUBS FOR 06/13/2019 MYLES CINTRON MD Ot W19.XXXD UNSPECIFIED FALL, SUBSEQUENT ENCOUNTER 06/13/2019 JOSE LOYA MD Ot Z12.3 1 ENCNTR SCREEN MAMMOGRAM FOR MALIGNANT NE 06/13/2019 JUDIE SIEGEL, ANN-MARIE Gonzalez Ot 401. 9 HYPERTENSION NOS 06/13/2019 ANN-MARIE DIMAS MD Ot 786. 09 RESPIRATORY ABNORM NEC 06/13/2019 ANN-MARIE DIMAS MD Ot 786. 59 CHEST PAIN NEC 06/13/2019 ANN-MARIE DIMAS MD Ot E66. 9 OBESITY, UNSPECIFIED 06/13/2019 ANN-MARIE DIMAS MD Ot I10 ESSENTIAL (PRIMARY) HYPERTENSION 06/13/2019 ANN-MARIE DIMAS MD Ot R06. 00 DYSPNEA, UNSPECIFIED 06/13/2019 ANN-MARIE DIMAS MD Ot R07. 9 CHEST PAIN, UNSPECIFIED 06/13/2019 ANN-MARIE DIMAS MD Ot Z68. 41 BODY MASS INDEX (BMI) 40.0-44.9, ADULT 06/13/2019 ANN-MARIE DIMAS MD Ot 237. 3 [facility] 06/13/2019 RITO SIEGEL, JAMIL Keita Ot 784.2 SWELLING IN HEAD NECK 06/13/2019 FREDA AYALA DO Ot R10.11 RIGHT UPPER QUADRANT PAIN 06/13/2019 CESAR SIEGEL, JAYDA Oro Ot R11.2 NAUSEA WITH VOMITING, UNSPECIFIED 06/13/2019 CESAR SIEGEL, JAYDA Oro Ot R13.10 DYSPHAGIA, UNSPECIFIED 06/13/2019 CESAR SIEGEL, JAYDA Oro Ot R19.7 DIARRHEA, UNSPECIFIED 06/13/2019 CESAR SIEGEL, JAYDA Oro Ot Z01.818 ENCOUNTER FOR OTHER PREPROCEDURAL EXAMIN 06/13/2019 VINCENZO SIEGEL, JOSE Graf Ot Z01.8 10 ENCOUNTER FOR PREPROCEDURAL CARDIOVASCUL 06/13/2019 JORDAN ASTUDILLO DO Ot E66. 9 OBESITY, UNSPECIFIED 06/13/2019 JORDAN ASTUDILLO DO Ot G47. 33 OBSTRUCTIVE SLEEP APNEA (ADULT) (PEDIATR 06/13/2019 JORDAN ASTUDILLO DO Ot J44. 9 CHRONIC OBSTRUCTIVE PULMONARY DISEASE, U 06/13/2019 JORDAN ASTUDILLO DO Ot R53. 83 OTHER FATIGUE 06/13/2019 JORDAN ASTUDILLO DO Ot E66. 9 OBESITY, UNSPECIFIED 06/13/2019 JORDAN ASTUDILLO DO, Ot G47. 33 OBSTRUCTIVE SLEEP APNEA (ADULT) (PEDIATR 06/13/2019 JORDAN ASTUDILLO DO Ot J44. 9 CHRONIC OBSTRUCTIVE PULMONARY DISEASE, U 06/13/2019 JORDAN ASTUDILLO DO Ot R53. 83 OTHER FATIGUE 06/13/2019 ANN-MARIE DIMAS MD Ot E66. 9 OBESITY, UNSPECIFIED 06/13/2019 ANN-MARIE DIMAS MD, Ot G47. 33 OBSTRUCTIVE SLEEP APNEA (ADULT) (PEDIATR 06/13/2019 ANN-MARIE DIMAS MD Ot I10 ESSENTIAL (PRIMARY) HYPERTENSION 06/13/2019 ANN-MARIE DIMAS MD Ot R06. 09 OTHER FORMS OF DYSPNEA 06/13/2019 ANN-MARIE DIMAS MD Ot R07. 89 OTHER CHEST PAIN 06/13/2019 MALINDA WEBBER DO Ot 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 OR RADICULOPA 06/13/2019 ANN-MARIE DIMAS MD Ot E13. 9 OTHER SPECIFIED DIABETES MELLITUS WITHOU 06/13/2019 ANN-MARIE DIMAS MD, Ot G47. 33 OBSTRUCTIVE SLEEP APNEA (ADULT) (PEDIATR 06/13/2019 ANN-MARIE DIMAS MD, Ot I10 ESSENTIAL (PRIMARY) HYPERTENSION 06/13/2019 ANN-MARIE DIMAS MD Ot R07. 89 OTHER CHEST PAIN 06/13/2019 ANN-MARIE DIMAS MD Ot R60. 9 EDEMA, UNSPECIFIED 06/13/2019 SOTO STRICKLAND APRN Ot Z12.31 ENCNTR SCREEN MAMMOGRAM FOR MALIGNANT NE 06/13/2019 SHERI GIBBONS Ot E78.2 MIXED HYPERLIPIDEMIA 06/13/2019 SHERI GIBBONS Ot G47.33 OBSTRUCTIVE SLEEP APNEA (ADULT) (PEDIATR 06/13/2019 SHERI GIBBONS Ot I10 ESSENTIAL (PRIMARY) HYPERTENSION 06/13/2019 SHERI GIBBONS Ot R07.89 OTHER CHEST PAIN 06/13/2019 JUVENTINO SIEGEL, PADMINI Ribera Ot M80.00XA AGE-REL OSTEOPOR W CURRENT PATH FRACTURE 06/13/2019 PADMINI JAUREGUI MD Ot M85.89 OT DISRD OF BONE DENSITY AND STRUCTURE, 06/13/2019 PADMINI JAUREGUI MD Ot Z13.820 ENCOUNTER FOR SCREENING FOR OSTEOPOROSIS 06/13/2019 SAIDA SIEGEL, MYLES Thompson Ot S82.851D DISPL TRIMALLEOL FX R LOW LEG, SUBS FOR 06/13/2019 MYLES CINTRON MD Ot W19.XXXD UNSPECIFIED FALL, SUBSEQUENT ENCOUNTER 06/13/2019 MYLES CINTRON MD Ot S82.851D DISPL TRIMALLEOL FX R LOW LEG, SUBS FOR 06/13/2019 MYLES CINTRON MD Ot W19.XXXD UNSPECIFIED FALL, SUBSEQUENT ENCOUNTER 06/13/2019 MYLES CINTRON MD Ot S82.851D DISPL TRIMALLEOL FX R LOW LEG, SUBS FOR 06/13/2019 MYLES CINTRON MD Ot W19.XXXD UNSPECIFIED FALL, SUBSEQUENT ENCOUNTER 06/13/2019 MYLES CINTRON MD Ot S82.851D DISPL TRIMALLEOL FX R LOW LEG, SUBS FOR 06/13/2019 MYLES CINTRON MD Ot W19.XXXD UNSPECIFIED FALL, SUBSEQUENT ENCOUNTER 06/13/2019 Ot S82.851D D ISPL TRIMALLEOL FX R LOW LEG, SUBS FOR 06/13/2019 MYLES CINTRON MD Ot S82.851D DISPL TRIMALLEOL FX R LOW LEG, SUBS FOR 06/13/2019 MYLES CINTRON MD Ot W19.XXXD UNSPECIFIED FALL, SUBSEQUENT ENCOUNTER 06/13/2019 JOSE LOYA MD Ot Z12.3 1 ENCNTR SCREEN MAMMOGRAM FOR MALIGNANT NE 06/14/2019 SHERI GIBBONS Ot E11.9 TYPE 2 DIABETES MELLITUS WITHOUT COMPLIC 06/14/2019 SHERI GIBBONS Ot E78.2 MIXED HYPERLIPIDEMIA 06/14/2019 SHERI GIBBONS Ot I10 ESSENTIAL (PRIMARY) HYPERTENSION 06/14/2019 SHERI GIBBONS Ot I34.0 NONRHEUMATIC MITRAL (VALVE) INSUFFICIENC 06/14/2019 SHERI GIBBONS Ot J44.9 CHRONIC OBSTRUCTIVE PULMONARY DISEASE, U 06/15/2019 HERACLIO CHAVARRIA DO Ot Z01.818 ENCOUNTER FOR OTHER PREPROCEDURAL EXAMIN 06/15/2019 SHERI GIBBONS Ot E11.9 TYPE 2 DIABETES MELLITUS WITHOUT COMPLIC 06/15/2019 ROLO GIBBONSDITH K Ot E78.2 MIXED HYPERLIPIDEMIA 06/15/2019 [facility] SHERI Johnson Ot I10 ESSENTIAL (PRIMARY) HYPERTENSION 06/15/2019 [facility], SHERI Johnson Ot I34.0 NONRHEUMATIC MITRAL (VALVE) INSUFFICIENC 06/15/2019 [facility], SHERI Johnson Ot J44.9 CHRONIC OBSTRUCTIVE PULMONARY DISEASE, U 06/19/2019 [facility] SHERI Johnson Ot E11.9 TYPE 2 DIABETES MELLITUS WITHOUT COMPLIC 06/19/2019 [facility], SHERI Johnson Ot E78.2 MIXED HYPERLIPIDEMIA 06/19/2019 [facility], SHERI Johnson Ot I10 ESSENTIAL (PRIMARY) HYPERTENSION 06/19/2019 [facility], SHERI Johnson Ot I34.0 NONRHEUMATIC MITRAL (VALVE) INSUFFICIENC 06/19/2019 [facility] BEE Ot J44.9 CHRONIC OBSTRUCTIVE PULMONARY DISEASE, U 06/19/2019 HERACLIO CHAVARRIA DO Ot Z01.818 ENCOUNTER FOR OTHER PREPROCEDURAL EXAMIN 06/19/2019 HERACLIO CHAVARRIA DO Ot Z01.818 ENCOUNTER FOR OTHER PREPROCEDURAL EXAMIN 06/19/2019 ANN-MARIE DIMAS MD Ot 401. 9 HYPERTENSION NOS 06/19/2019 ANN-MARIE DIMAS MD Ot 786. 09 RESPIRATORY ABNORM NEC 06/19/2019 ANN-MARIE DIMAS MD Ot 786. 59 CHEST PAIN NEC 06/19/2019 ANN-MARIE DIMAS MD Ot E66. 9 OBESITY, UNSPECIFIED 06/19/2019 ANN-MARIE DIMAS MD Ot I10 ESSENTIAL (PRIMARY) HYPERTENSION 06/19/2019 ANN-MARIE DIMAS MD Ot R06. 00 DYSPNEA, UNSPECIFIED 06/19/2019 ANN-MARIE DIMAS MD Ot R07. 9 CHEST PAIN, UNSPECIFIED 06/19/2019 ANN-MARIE DIMAS MD Ot Z68. 41 BODY MASS INDEX (BMI) 40.0-44.9, ADULT 06/19/2019 ANN-MARIE DIMAS MD Ot 237. 3 [facility] 06/19/2019 RITO SIEGEL, JAMIL Keita Ot 784.2 SWELLING IN HEAD NECK 06/19/2019 FREDA AYALA DO Ot R10.11 RIGHT UPPER QUADRANT PAIN 06/19/2019 CESAR SIEGEL, JAYDA Oro Ot R11.2 NAUSEA WITH VOMITING, UNSPECIFIED 06/19/2019 CESAR SIEGEL, JAYDA Oro Ot R13.10 DYSPHAGIA, UNSPECIFIED 06/19/2019 CESAR SIEGEL, JAYDA Oro Ot R19.7 DIARRHEA, UNSPECIFIED 06/19/2019 CESAR SIEGEL, JAYDA Oro Ot Z01.818 ENCOUNTER FOR OTHER PREPROCEDURAL EXAMIN 06/19/2019 VINCENZO SIEGEL, JOSE Graf Ot Z01.8 10 ENCOUNTER FOR PREPROCEDURAL CARDIOVASCUL 06/19/2019 JORDAN ASTUDILLO DO Ot E66. 9 OBESITY, UNSPECIFIED 06/19/2019 JORDAN ASTUDILLO DO Ot G47. 33 OBSTRUCTIVE SLEEP APNEA (ADULT) (PEDIATR 06/19/2019 JORDAN ASTUDILLO DO Ot J44. 9 CHRONIC OBSTRUCTIVE PULMONARY DISEASE, U 06/19/2019 JORDAN ASTUDILLO DO Ot R53. 83 OTHER FATIGUE 06/19/2019 JORDAN ASTUDILLO DO Ot E66. 9 OBESITY, UNSPECIFIED 06/19/2019 JORDAN ASTUDILLO DO Ot G47. 33 OBSTRUCTIVE SLEEP APNEA (ADULT) (PEDIATR 06/19/2019 BAUDILIO JORDAN ORONA Ot J44. 9 CHRONIC OBSTRUCTIVE PULMONARY DISEASE, U 06/19/2019 BAUDILIO JORDAN ORONA Ot R53. 83 OTHER FATIGUE 06/19/2019 JUDIE SIEGEL, ANN-MARIE Gonzalez Ot E66. 9 OBESITY, UNSPECIFIED 06/19/2019 ANN-MARIE DIMAS MD Ot G47. 33 OBSTRUCTIVE SLEEP APNEA (ADULT) (PEDIATR 06/19/2019 JUDIE SIEGEL, ANN-MARIE Gonzalez Ot I10 ESSENTIAL (PRIMARY) HYPERTENSION 06/19/2019 JUDIE SIEGEL, ANN-MARIE Gonzalez Ot R06. 09 OTHER FORMS OF DYSPNEA 06/19/2019 ANN-MARIE DIMAS MD Ot R07. 89 OTHER CHEST PAIN 06/19/2019 HEARNDON MALINDA ORONA Ot 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 OR RADICULOPA 06/19/2019 ANN-MARIE DIMAS MD Ot E13. 9 OTHER SPECIFIED DIABETES MELLITUS WITHOU 06/19/2019 ANN-MARIE DIMAS MD Ot G47. 33 OBSTRUCTIVE SLEEP APNEA (ADULT) (PEDIATR 06/19/2019 ANN-MARIE DIMAS MD Ot I10 ESSENTIAL (PRIMARY) HYPERTENSION 06/19/2019 ANN-MARIE DIMAS MD Ot R07. 89 OTHER CHEST PAIN 06/19/2019 ANN-MARIE DIMAS MD Ot R60. 9 EDEMA, UNSPECIFIED 06/19/2019 SOTO STRICKLAND [place] Ot Z12.31 ENCNTR SCREEN MAMMOGRAM FOR MALIGNANT NE 06/19/2019 CRISTOPHER BEE, SHERI Johnson Ot E78.2 MIXED HYPERLIPIDEMIA 06/19/2019 CRISTOPHER BEE, SHERI Johnson Ot G47.33 OBSTRUCTIVE SLEEP APNEA (ADULT) (PEDIATR 06/19/2019 CRISTOPHER BEE, SHERI Johnson Ot I10 ESSENTIAL (PRIMARY) HYPERTENSION 06/19/2019 CRISTOHPER BEE, SHERI Johnson Ot R07.89 OTHER CHEST PAIN 06/19/2019 PADMINI JAUREGUI MD, Ot M80.00XA AGE-REL OSTEOPOR W CURRENT PATH FRACTURE 06/19/2019 PADMINI JAUREGUI MD, Ot M85.89 OTH DISRD OF BONE DENSITY AND STRUCTURE, 06/19/2019 PADMINI JAUREGUI MD, Ot Z13.820 ENCOUNTER FOR SCREENING FOR OSTEOPOROSIS 06/19/2019 MYLES CINTRON MD Ot S82.851D DISPL TRIMALLEOL FX R LOW LEG, SUBS FOR 06/19/2019 MYLES CINTRON MD Ot W19.XXXD UNSPECIFIED FALL, SUBSEQUENT ENCOUNTER 06/19/2019 MYLES CINTRON MD Ot S82.851D DISPL TRIMALLEOL FX R LOW LEG, SUBS FOR 06/19/2019 MYLES CINTRON MD Ot W19.XXXD UNSPECIFIED FALL, SUBSEQUENT ENCOUNTER 06/19/2019 MYLES CINTRON MD Ot S82.851D DISPL TRIMALLEOL FX R LOW LEG, SUBS FOR 06/19/2019 MYLES CINTRON MD Ot W19.XXXD UNSPECIFIED FALL, SUBSEQUENT ENCOUNTER 06/19/2019 MYLES CINTRON MD Ot S82.851D DISPL TRIMALLEOL FX R LOW LEG, SUBS FOR 06/19/2019 MYLES CINTRON MD Ot W19.XXXD UNSPECIFIED FALL, SUBSEQUENT ENCOUNTER 06/19/2019 Ot S82.851D D ISPL TRIMALLEOL FX R LOW LEG, SUBS FOR 06/19/2019 MYLES CINTRON MD Ot S82.851D DISPL TRIMALLEOL FX R LOW LEG, SUBS FOR 06/19/2019 MYLES CINTRON MD Ot W19.XXXD UNSPECIFIED FALL, SUBSEQUENT ENCOUNTER 06/19/2019 VINCENZO SIEGEL, JOSE Graf Ot Z12.3 1 ENCNTR SCREEN MAMMOGRAM FOR MALIGNANT NE 06/19/2019 CRISTOPHER BEE, SHERI Johnson Ot E11.9 TYPE 2 DIABETES MELLITUS WITHOUT COMPLIC 06/19/2019 CRISTOPHER BEE, SHERI Johnson Ot E78.2 MIXED HYPERLIPIDEMIA 06/19/2019 SHERI GIBBONS Ot I10 ESSENTIAL (PRIMARY) HYPERTENSION 06/19/2019 SHERI GIBBONS Ot I34.0 NONRHEUMATIC MITRAL (VALVE) INSUFFICIENC 06/19/2019 SHERI GIBBONS Ot J44.9 CHRONIC OBSTRUCTIVE PULMONARY DISEASE, U 06/20/2019 JUDIE SIEGEL, ANN-MARIE Gonzalez Ot 401. 9 HYPERTENSION NOS 06/20/2019 ANN-MARIE DIMAS MD Ot 786. 09 RESPIRATORY ABNORM NEC 06/20/2019 ANN-MARIE DIMAS MD Ot 786. 59 CHEST PAIN NEC 06/20/2019 ANN-MARIE DIMAS MD Ot E66. 9 OBESITY, UNSPECIFIED 06/20/2019 ANN-MARIE DIMAS MD Ot I10 ESSENTIAL (PRIMARY) HYPERTENSION 06/20/2019 ANN-MARIE DIMAS MD Ot R06. 00 DYSPNEA, UNSPECIFIED 06/20/2019 ANN-MARIE DIMAS MD Ot R07. 9 CHEST PAIN, UNSPECIFIED 06/20/2019 ANN-MARIE DIMAS MD Ot Z68. 41 BODY MASS INDEX (BMI) 40.0-44.9, ADULT 06/20/2019 ANN-MARIE DIMAS MD Ot 237. 3 [facility] 06/20/2019 RITO SIEGEL, JAMIL Keita Ot 784.2 SWELLING IN HEAD NECK 06/20/2019 FREDA AYALA DO Ot R10.11 RIGHT UPPER QUADRANT PAIN 06/20/2019 CESAR SIEGEL, JAYDA Oro Ot R11.2 NAUSEA WITH VOMITING, UNSPECIFIED 06/20/2019 CESAR SIEGEL, JAYDA Oro Ot R13.10 DYSPHAGIA, UNSPECIFIED 06/20/2019 CESAR SIEGEL, JAYDA Oro Ot R19.7 DIARRHEA, UNSPECIFIED 06/20/2019 CESAR SIEGEL, JAYDA Oro Ot Z01.818 ENCOUNTER FOR OTHER PREPROCEDURAL EXAMIN 06/20/2019 JOSE LOYA MD Ot Z01.8 10 ENCOUNTER FOR PREPROCEDURAL CARDIOVASCUL 06/20/2019 JORDAN ASTUDILLO DO M Ot E66. 9 OBESITY, UNSPECIFIED 06/20/2019 BAUDILIO DO, JORDAN M Ot G47. 33 OBSTRUCTIVE SLEEP APNEA (ADULT) (PEDIATR 06/20/2019 BAUDILIO DO, JORDAN M Ot J44. 9 CHRONIC OBSTRUCTIVE PULMONARY DISEASE, U 06/20/2019 BAUDILIO DO, JORDAN M Ot R53. 83 OTHER FATIGUE 06/20/2019 BAUDILIO DO, JORDAN M Ot E66. 9 OBESITY, UNSPECIFIED 06/20/2019 BAUDILIO DO, JORDAN M Ot G47. 33 OBSTRUCTIVE SLEEP APNEA (ADULT) (PEDIATR 06/20/2019 BAUDILIO DO, JORDAN M Ot J44. 9 CHRONIC OBSTRUCTIVE PULMONARY DISEASE, U 06/20/2019 BAUDILIO DO, JORDAN M Ot R53. 83 OTHER FATIGUE 06/20/2019 ANN-MARIE DIMAS MD Ot E66. 9 OBESITY, UNSPECIFIED 06/20/2019 ANN-MARIE DIMAS MD Ot G47. 33 OBSTRUCTIVE SLEEP APNEA (ADULT) (PEDIATR 06/20/2019 ANN-MARIE DIMAS MD Ot I10 ESSENTIAL (PRIMARY) HYPERTENSION 06/20/2019 ANN-MARIE DIMAS MD Ot R06. 09 OTHER FORMS OF DYSPNEA 06/20/2019 ANN-MARIE DIMAS MD Ot R07. 89 OTHER CHEST PAIN 06/20/2019 MALINDA WEBBER DO Ot 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 OR RADICULOPA 06/20/2019 ANN-MARIE DIMAS MD Ot E13. 9 OTHER SPECIFIED DIABETES MELLITUS WITHOU 06/20/2019 ANN-MARIE DIMAS MD, Ot G47. 33 OBSTRUCTIVE SLEEP APNEA (ADULT) (PEDIATR 06/20/2019 ANN-MARIE DIMAS MD Ot I10 ESSENTIAL (PRIMARY) HYPERTENSION 06/20/2019 ANN-MARIE DIMAS MD Ot R07. 89 OTHER CHEST PAIN 06/20/2019 ANN-MARIE DIMAS MD Ot R60. 9 EDEMA, UNSPECIFIED 06/20/2019 SOTO STRICKLAND APRN Ot Z12.31 ENCNTR SCREEN MAMMOGRAM FOR MALIGNANT NE 06/20/2019 CRISTOPHER BEE, SHERI Johnson Ot E78.2 MIXED HYPERLIPIDEMIA 06/20/2019 CRISTOPHER BEE, SHERI Johnson Ot G47.33 OBSTRUCTIVE SLEEP APNEA (ADULT) (PEDIATR 06/20/2019 CRISTOPHER BEE, SHERI Johnson Ot I10 ESSENTIAL (PRIMARY) HYPERTENSION 06/20/2019 CRISTOPHER BEE, SHERI Johnson Ot R07.89 OTHER CHEST PAIN 06/20/2019 JUVENTINO SIEGEL, PADMINI Ribera Ot M80.00XA AGE-REL OSTEOPOR W CURRENT PATH FRACTURE 06/20/2019 PADMINI JAUREGUI MD, Ot M85.89 OTH DISRD OF BONE DENSITY AND STRUCTURE, 06/20/2019 PADMINI JAUREGUI MD, Ot Z13.820 ENCOUNTER FOR SCREENING FOR OSTEOPOROSIS 06/20/2019 MYLES CINTRON MD Ot S82.851D DISPL TRIMALLEOL FX R LOW LEG, SUBS FOR 06/20/2019 MYLES CINTRON MD Ot W19.XXXD UNSPECIFIED FALL, SUBSEQUENT ENCOUNTER 06/20/2019 MYLES CINTRON MD Ot S82.851D DISPL TRIMALLEOL FX R LOW LEG, SUBS FOR 06/20/2019 MYLES CINTRON MD Ot W19.XXXD UNSPECIFIED FALL, SUBSEQUENT ENCOUNTER 06/20/2019 MYLES CINTRON MD Ot S82.851D DISPL TRIMALLEOL FX R LOW LEG, SUBS FOR 06/20/2019 MYLES CINTRON MD Ot W19.XXXD UNSPECIFIED FALL, SUBSEQUENT ENCOUNTER 06/20/2019 MYLES CINTRON MD Ot S82.851D DISPL TRIMALLEOL FX R LOW LEG, SUBS FOR 06/20/2019 MYLES CINTRON MD Ot W19.XXXD UNSPECIFIED FALL, SUBSEQUENT ENCOUNTER 06/20/2019 Ot S82.851D D ISPL TRIMALLEOL FX R LOW LEG, SUBS FOR 06/20/2019 MYLES CINTRON MD Ot S82.851D DISPL TRIMALLEOL FX R LOW LEG, SUBS FOR 06/20/2019 MYLES CINTRON MD Ot W19.XXXD UNSPECIFIED FALL, SUBSEQUENT ENCOUNTER 06/20/2019 JOSE LOYA MD Ot Z12.3 1 ENCNTR SCREEN MAMMOGRAM FOR MALIGNANT NE 06/20/2019 SHERI GIBBONS Ot E11.9 TYPE 2 DIABETES MELLITUS WITHOUT COMPLIC 06/20/2019 SHERI GIBBONS Ot E78.2 MIXED HYPERLIPIDEMIA 06/20/2019 SHERI GIBBONS Ot I10 ESSENTIAL (PRIMARY) HYPERTENSION 06/20/2019 SHERI GIBBONS Ot I34.0 NONRHEUMATIC MITRAL (VALVE) INSUFFICIENC 06/20/2019 SHERI GIBBONS Ot J44.9 CHRONIC OBSTRUCTIVE PULMONARY DISEASE, U 06/20/2019 HERACLIO CHAVARRIA DO Ot E03. 9 HYPOTHYROIDISM, UNSPECIFIED 06/20/2019 HERACLIO CHAVARRIA DO Ot E11. 9 TYPE 2 DIABETES MELLITUS WITHOUT COMPLIC 06/20/2019 HERACLIO CHAVARRIA DO Ot E66. 9 OBESITY, UNSPECIFIED 06/20/2019 HERACLIO CHAVARRIA DO Ot E78. 2 MIXED HYPERLIPIDEMIA 06/20/2019 HERACLIO CHAVARRIA DO Ot F20. 9 SCHIZOPHRENIA, UNSPECIFIED 06/20/2019 CHAVARRIA HERACLIO ORONA Ot F32. 9 MAJOR DEPRESSIVE DISORDER, SINGLE EPISOD 06/20/2019 HERACLIO CHAVARRIA DO Ot F41. 9 ANXIETY DISORDER, UNSPECIFIED 06/20/2019 CHAVARRIA HERACLIO ORONA Ot G47. 33 OBSTRUCTIVE SLEEP APNEA (ADULT) (PEDIATR 06/20/2019 HERACLIO CHAVARRIA DO Ot I10 ESSENTIAL (PRIMARY) HYPERTENSION 06/20/2019 HERACLIO CHAVARRIA DO Ot J44. 9 CHRONIC OBSTRUCTIVE PULMONARY DISEASE, U 06/20/2019 HERACLIO CHAVARRIA DO Ot K21. 9 GASTRO-ESOPHAGEAL REFLUX DISEASE WITHOUT 06/20/2019 HERACLIO CHAVARRIA DO Ot K57. 30 DVRTCLOS OF LG INT W/O PERFORATION OR AB 06/20/2019 HERACLIO CHAVARRIA DO Ot M19. 91 PRIMARY OSTEOARTHRITIS, UNSPECIFIED SITE 06/20/2019 HERACLIO CHAVARRIA DO Ot M32. 9 SYSTEMIC LUPUS ERYTHEMATOSUS, UNSPECIFIE 06/20/2019 HERACLIO CHAVARRIA DO Ot T18.108A UNSP FOREIGN BODY IN ESOPHAGUS CAUSING O 06/20/2019 HERACLIO CHAVARRIA DO Ot Z68. 38 BODY MASS INDEX (BMI) 38.0-38.9, ADULT 06/20/2019 HERACLIO CHAVARRIA DO, Ot Z79.899 OTHER JUNCTION MAKER (CURRENT) DRUG THERAPY 06/20/2019 HERACLIO CHAVARRIA DO Ot Z80. 0 FAMILY HISTORY OF MALIGNANT NEOPLASM OF 06/20/2019 HERACLIO CHAVARRIA DO Ot Z87.891 PERSONAL HISTORY OF NICOTINE DEPENDENCE 06/20/2019 HERACLIO CHAVARRIA DO Ot Z88. 0 ALLERGY STATUS TO PENICILLIN 06/20/2019 HERACLIO CHAVARRIA DO Ot Z88. 2 ALLERGY STATUS TO SULFONAMIDES STATUS 06/23/2019 HERACLIO CHAVARRIA DO Ot E03. 9 HYPOTHYROIDISM, UNSPECIFIED 06/23/2019 HERACLIO CHAVARRIA DO Ot E11. 9 TYPE 2 DIABETES MELLITUS WITHOUT COMPLIC 06/23/2019 HERACLIO CHAVARRIA DO Ot E66. 9 OBESITY, UNSPECIFIED 06/23/2019 HERACLIO CHAVARRIA DO Ot E78. 2 MIXED HYPERLIPIDEMIA 06/23/2019 HERACLIO CHAVARRIA DO Ot F20. 9 SCHIZOPHRENIA, UNSPECIFIED 06/23/2019 HERACLIO CHAVARRIA DO Ot F32. 9 MAJOR DEPRESSIVE DISORDER, SINGLE EPISOD 06/23/2019 HERACLIO CHAVARRIA DO Ot F41. 9 ANXIETY DISORDER, UNSPECIFIED 06/23/2019 HERACLIO CHAVARRIA DO Ot G47. 33 OBSTRUCTIVE SLEEP APNEA (ADULT) (PEDIATR 06/23/2019 HERACLIO CHAVARRIA DO Ot I10 ESSENTIAL (PRIMARY) HYPERTENSION 06/23/2019 HERACLIO CHAVARRIA DO Ot J44. 9 CHRONIC OBSTRUCTIVE PULMONARY DISEASE, U 06/23/2019 HERACLIO CHAVARRIA DO Ot K21. 9 GASTRO-ESOPHAGEAL REFLUX DISEASE WITHOUT 06/23/2019 HERACLIO CHAVARRIA DO Ot K57. 30 DVRTCLOS OF LG INT W/O PERFORATION OR AB 06/23/2019 HERACLIO CHAVARRIA DO Ot M19. 91 PRIMARY OSTEOARTHRITIS, UNSPECIFIED SITE 06/23/2019 HERACLIO CHAVARRIA DO Ot M32. 9 SYSTEMIC LUPUS ERYTHEMATOSUS, UNSPECIFIE 06/23/2019 HERACLIO CHAVARRIA DO Ot T18.108A UNSP FOREIGN BODY IN ESOPHAGUS CAUSING O 06/23/2019 HERACLIO CHAVARRIA DO, Ot Z68. 38 BODY MASS INDEX (BMI) 38.0-38.9, ADULT 06/23/2019 AURA ORONAHERACLIO Ot Z79.899 OTHER JUNCTION MAKER (CURRENT) DRUG THERAPY 06/23/2019 AURA ORONAHERACLIO Ot Z80. 0 FAMILY HISTORY OF MALIGNANT NEOPLASM OF 06/23/2019 AURA ORONA HERACLIO Thompson Ot Z87.891 PERSONAL HISTORY OF NICOTINE DEPENDENCE 06/23/2019 CHAVARRIA HERACLIO Ot Z88. 0 ALLERGY STATUS TO PENICILLIN 06/23/2019 CHAVARRIA HERACLIO Ot Z88. 2 ALLERGY STATUS TO SULFONAMIDES STATUS 06/26/2019 JUDIE SIEGEL, ANN-MARIE Gonzalez Ot 401. 9 HYPERTENSION NOS 06/26/2019 JUDIE SIEGEL, ANN-MARIE Gonzalez Ot 786. 09 RESPIRATORY ABNORM NEC 06/26/2019 ANN-MARIE DIMAS MD Ot 786. 59 CHEST PAIN NEC 06/26/2019 ANN-MARIE DIMAS MD Ot E66. 9 OBESITY, UNSPECIFIED 06/26/2019 ANN-MARIE DIMAS MD Ot I10 ESSENTIAL (PRIMARY) HYPERTENSION 06/26/2019 ANN-MARIE DIMAS MD Ot R06. 00 DYSPNEA, UNSPECIFIED 06/26/2019 ANN-MARIE DIMAS MD Ot R07. 9 CHEST PAIN, UNSPECIFIED 06/26/2019 JUDIE SIEGEL, ANN-MARIE Gonzalez Ot Z68. 41 BODY MASS INDEX (BMI) 40.0-44.9, ADULT 06/26/2019 ANN-MARIE DIMAS MD Ot 237. 3 [facility] MARIANA PARAGANG 06/26/2019 RITO SIEGEL, JAMIL Keita Ot 784.2 SWELLING IN HEAD NECK 06/26/2019 FREDA AYALA DO Ot R10.11 RIGHT UPPER QUADRANT PAIN 06/26/2019 CESAR SIEGEL, JAYDA Oro Ot R11.2 NAUSEA WITH VOMITING, UNSPECIFIED 06/26/2019 CESAR SIEGEL, JAYDA Oro Ot R13.10 DYSPHAGIA, UNSPECIFIED 06/26/2019 CESAR SIEGEL, JAYDA Oro Ot R19.7 DIARRHEA, UNSPECIFIED 06/26/2019 CESAR SIEGEL, JAYDA Oro Ot Z01.818 ENCOUNTER FOR OTHER PREPROCEDURAL EXAMIN 06/26/2019 JOSE LOYA MD Ot Z01.8 10 ENCOUNTER FOR PREPROCEDURAL CARDIOVASCUL 06/26/2019 JORDAN ASTUDILLO DO Ot E66. 9 OBESITY, UNSPECIFIED 06/26/2019 BAUDILIO DO, JORDAN M Ot G47. 33 OBSTRUCTIVE SLEEP APNEA (ADULT) (PEDIATR 06/26/2019 BAUDILIO DO, JORDAN M Ot J44. 9 CHRONIC OBSTRUCTIVE PULMONARY DISEASE, U 06/26/2019 BAUDILIO DO, JORDAN M Ot R53. 83 OTHER FATIGUE 06/26/2019 BAUDILIO DO, JORDAN M Ot E66. 9 OBESITY, UNSPECIFIED 06/26/2019 BAUDILIO DO, JORDAN M Ot G47. 33 OBSTRUCTIVE SLEEP APNEA (ADULT) (PEDIATR 06/26/2019 BAUDILIO DO, JORDAN M Ot J44. 9 CHRONIC OBSTRUCTIVE PULMONARY DISEASE, U 06/26/2019 BAUDILIO DO, JORDAN M Ot R53. 83 OTHER FATIGUE 06/26/2019 JUDIE SIEGEL, ANN-MARIE Gonzalez Ot E66. 9 OBESITY, UNSPECIFIED 06/26/2019 ANN-MARIE DIMAS MD Ot G47. 33 OBSTRUCTIVE SLEEP APNEA (ADULT) (PEDIATR 06/26/2019 ANN-MARIE DIMAS MD Ot I10 ESSENTIAL (PRIMARY) HYPERTENSION 06/26/2019 ANN-MARIE DIMAS MD Ot R06. 09 OTHER FORMS OF DYSPNEA 06/26/2019 ANN-MARIE DIMAS MD Ot R07. 89 OTHER CHEST PAIN 06/26/2019 MALINDA WEBBER DO Ot 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 OR RADICULOPA 06/26/2019 ANN-MARIE DIMAS MD Ot E13. 9 OTHER SPECIFIED DIABETES MELLITUS WITHOU 06/26/2019 ANN-MARIE DIMAS MD Ot G47. 33 OBSTRUCTIVE SLEEP APNEA (ADULT) (PEDIATR 06/26/2019 ANN-MARIE DIMAS MD Ot I10 ESSENTIAL (PRIMARY) HYPERTENSION 06/26/2019 ANN-MARIE DIMAS MD Ot R07. 89 OTHER CHEST PAIN 06/26/2019 ANN-MARIE DIMAS MD Ot R60. 9 EDEMA, UNSPECIFIED 06/26/2019 SOTO STRICKLAND APRN Ot Z12.31 ENCNTR SCREEN MAMMOGRAM FOR MALIGNANT NE 06/26/2019 SHERI GIBBONS Ot E78.2 MIXED HYPERLIPIDEMIA 06/26/2019 SHERI GIBBONS Ot G47.33 OBSTRUCTIVE SLEEP APNEA (ADULT) (PEDIATR 06/26/2019 SHERI GIBBONS Ot I10 ESSENTIAL (PRIMARY) HYPERTENSION 06/26/2019 SHERI GIBBONS Ot R07.89 OTHER CHEST PAIN 06/26/2019 PADMINI JAUREGUI MD Ot M80.00XA AGE-REL OSTEOPOR W CURRENT PATH FRACTURE 06/26/2019 PADMINI JAUREGUI MD, Ot M85.89 OTH DISRD OF BONE DENSITY AND STRUCTURE, 06/26/2019 PADMINI JAUREGUI MD Ot Z13.820 ENCOUNTER FOR SCREENING FOR OSTEOPOROSIS 06/26/2019 MYLES CINTRON MD Ot S82.851D DISPL TRIMALLEOL FX R LOW LEG, SUBS FOR 06/26/2019 MYLES CINTRON MD Ot W19.XXXD UNSPECIFIED FALL, SUBSEQUENT ENCOUNTER 06/26/2019 MYLES CINTRON MD Ot S82.851D DISPL TRIMALLEOL FX R LOW LEG, SUBS FOR 06/26/2019 MYLES CINTRON MD Ot W19.XXXD UNSPECIFIED FALL, SUBSEQUENT ENCOUNTER 06/26/2019 MYLES CINTRON MD Ot S82.851D DISPL TRIMALLEOL FX R LOW LEG, SUBS FOR 06/26/2019 MYLES CINTRON MD Ot W19.XXXD UNSPECIFIED FALL, SUBSEQUENT ENCOUNTER 06/26/2019 MYLES CINTRON MD Ot S82.851D DISPL TRIMALLEOL FX R LOW LEG, SUBS FOR 06/26/2019 MYLES CINTRON MD Ot W19.XXXD UNSPECIFIED FALL, SUBSEQUENT ENCOUNTER 06/26/2019 Ot S82.851D D ISPL TRIMALLEOL FX R LOW LEG, SUBS FOR 06/26/2019 MYLES CINTRON MD Ot S82.851D DISPL TRIMALLEOL FX R LOW LEG, SUBS FOR 06/26/2019 MYLES CINTRON MD Ot W19.XXXD UNSPECIFIED FALL, SUBSEQUENT ENCOUNTER 06/26/2019 JOSE LOYA MD Ot Z12.3 1 ENCNTR SCREEN MAMMOGRAM FOR MALIGNANT NE 06/26/2019 SHERI GIBBONS Ot E11.9 TYPE 2 DIABETES MELLITUS WITHOUT COMPLIC 06/26/2019 SHERI GIBBONS Ot E78.2 MIXED HYPERLIPIDEMIA 06/26/2019 SHERI GIBBONS Ot I10 ESSENTIAL (PRIMARY) HYPERTENSION 06/26/2019 SHERI GIBBONS Ot I34.0 NONRHEUMATIC MITRAL (VALVE) INSUFFICIENC 06/26/2019 SHERI GIBBONS Ot J44.9 CHRONIC OBSTRUCTIVE PULMONARY DISEASE, U 06/28/2019 ANN-MARIE DIMAS MD, Ot E11. 9 TYPE 2 DIABETES MELLITUS WITHOUT COMPLIC 06/28/2019 ANN-MARIE DIMAS MD, Ot E78. 2 MIXED HYPERLIPIDEMIA 06/28/2019 ANN-MARIE DIMAS MD Ot I25. 89 OTHER FORMS OF CHRONIC ISCHEMIC HEART DI 06/28/2019 ANN-MARIE DIMAS MD, Ot J44. 9 CHRONIC OBSTRUCTIVE PULMONARY DISEASE, U 06/28/2019 ANN-MARIE DIMAS MD, Ot N64. 89 OTHER SPECIFIED DISORDERS OF BREAST 06/28/2019 HERACLIO CHAVARRIA DO Ot E03. 9 HYPOTHYROIDISM, UNSPECIFIED 06/28/2019 HERACLIO CHAVARRIA DO Ot E11. 9 TYPE 2 DIABETES MELLITUS WITHOUT COMPLIC 06/28/2019 HERACLIO CHAVARRIA DO Ot E66. 9 OBESITY, UNSPECIFIED 06/28/2019 HERACLIO CHAVARRIA DO Ot E78. 2 MIXED HYPERLIPIDEMIA 06/28/2019 HERACLIO CHAVARRIA DO Ot F20. 9 SCHIZOPHRENIA, UNSPECIFIED 06/28/2019 HERACLIO CHAVARRIA DO Ot F32. 9 MAJOR DEPRESSIVE DISORDER, SINGLE EPISOD 06/28/2019 HERACLIO CHAVARRIA DO Ot F41. 9 ANXIETY DISORDER, UNSPECIFIED 06/28/2019 HERACLIO CHAVARRIA DO Ot G47. 33 OBSTRUCTIVE SLEEP APNEA (ADULT) (PEDIATR 06/28/2019 HERACLIO CHAVARRIA DO Ot I10 ESSENTIAL (PRIMARY) HYPERTENSION 06/28/2019 HERACLIO CHAVARRIA DO Ot J44. 9 CHRONIC OBSTRUCTIVE PULMONARY DISEASE, U 06/28/2019 HERACLIO CHAVARRIA DO Ot K21. 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 91 PRIMARY OSTEOARTHRITIS, UNSPECIFIED SITE 06/28/2019 HERACLIO CHAVARRIA DO Ot M32. 9 SYSTEMIC LUPUS ERYTHEMATOSUS, UNSPECIFIE 06/28/2019 HERACLIO CHAVARRIA DO Ot T18.108A UNSP FOREIGN BODY IN ESOPHAGUS CAUSING O 06/28/2019 [facility] HERACLIO Thompson Ot Z68. 38 BODY MASS INDEX (BMI) 38.0-38.9, ADULT 06/28/2019 [facility] HERACLIO Jay Ot Z79.899 OTHER [facility] (CURRENT) [facility] FAMILY HISTORY OF MALIGNANT NEOPLASM [facility].891 PERSONAL HISTORY OF NICOTINE DEPENDENCE [facility] 0 ALLERGY STATUS TO PENICILLIN [facility]. 2 ALLERGY STATUS TO SULFONAMIDES STATUS Procedures Code [place] [address] A1C (IN-HOUSE) 01/09/2013 J2550 PHEN ERGAN INJECTION UP TO 50 MG 01/09/2013 98955 THER APUTIC INJ SQ/IM 01/09/2013 18322 MAMM OGRAM, SCREENING 02/02/2013 93503 OXIMETRY 12/12/2013 05939 MAMM OGRAM, SCREENING 02/07/2014 75914 ROUT INE VENIPUNCTURE 03/12/2014 81513 A1C (IN-HOUSE) 03/12/2014 [id number] GF R CALC (RESULT ONLY) 03/12/2014 56384 BMP 03/12/2014 [id number] RE POSITION RIGHT TIBIA WITH INT FIX, OPE 09/03/2018 [id number] RE POSITION RIGHT FIBULA WITH INT FIX, OP 09/03/2018 [id number] RE POSITION RIGHT ANKLE JOINT WITH INT FI 09/03/2018 Results Test Result Range TSH - 04/06/17 12:19 TSH 36.79 mIU/L 0.40-4.50 CMP - 05/05/17 11:32 GLUCOSE 191 mg/dL 65-99 UREA NITROGEN (BUN) 16 mg/dL 7-25 CREATININE 0.66 mg/dL 0.50-1.05 eGFR NON-AFR. CYMRO 99 mL/min/1.73m2 > OR = 60 eGFR 114 mL/min/1.73m2 > OR = 60 BUN/CREATININE RATIO NOT APPLICABLE (calc) 6-22 SODIUM 137 mmol/L 135-146 POTASSIUM 4.1 mmol/L 3.5-5.3 CHLORIDE 103 mmol/L 98-110 CARBON DIOXIDE 27 mmol/L 20-31 CALCIUM 9.0 mg/dL 8.6-10.4 PROTEIN, TOTAL 6.5 g/dL 6.1-8.1 ALBUMIN 4.1 g/dL 3.6-5.1 GLOBULIN 2.4 g/dL (calc) 1.9-3.7 ALBUMIN/GLOBULIN RATIO 1.7 (calc) 1.0-2. 5 BILIRUBIN, TOTAL 0.3 mg/dL 0.2-1.2 ALKALINE PHOSPHATASE 71 U/L 33-130 AST 14 U/L 10-35 ALT 17 U/L 6-29 TSH - 06/03/17 12:16 TSH 1.55 mIU/L 0.40-4.50 THYROID PEROXIDASE ANTIBODIES - 07/22/17 12:16 THYROID PEROXIDASE ANTIBODIES 1 IU/mL <9 THYROID ANALYZER - 09/29/17 15:17 TSH 1.11 mIU/L 0.40-4.50 TSH - 06/29/18 12:54 TSH 4.10 mIU/L 0.40-4.50 Comprehensive Metabolic Panel - 08/25/18 [...] MEDIA PLATED Setup at 11:13 on 08/25/2018 Methicillin resistant Staphylococcus aur eus (MRSA) screening culture - 09/02/18 19:40 MRSA SCREEN RESULT MRSA NOT ISOLATED NR G Capillary blood glucose measurement by g lucometer (mass/volume) - 09/02/18 20:53 Capillary blood glucose measurement by glucometer (mas s/volume) 130 mg/dL 70-110 Capillary blood glucose measurement by g lucometer (mass/volume) - 09/03/18 05:21 Capillary blood glucose measurement by glucometer (mas s/volume) 141 mg/dL 70-110 Complete blood count (CBC) with automate d white blood cell (WBC) differential - 09/03/18 05:48 Blood leukocytes automated count (number/volume) 11.8 10*3/uL 4.3-11.0 Blood erythrocytes automated count (number/volume) 4.66 10*6/uL 4.35-5.85 Venous blood hemoglobin measurement (mass/volume) 13.4 g/dL 11.5-16.0 Blood hematocrit (volume fraction) 42 % 35-52 Automated erythrocyte mean corpuscular volume 91 [ foz_us] 80-99 Automated erythrocyte mean corpuscular h emoglobin (mass per erythrocyte) 29 pg 25-34 Automated erythrocyte mean corpuscular h emoglobin concentration measurement (mass/volume) 32 g/dL 32-36 Automated erythrocyte distribution width ratio 13. 0 % 10.0- 14.5 Automated blood platelet count (count/volume) 280 10*3/uL 130-400 Automated blood platelet mean volume measurement 10.5 [foz_us] 7.4-10.4 Automated blood neutrophils/100 leukocytes 71 % 42-75 Automated blood lymphocytes/100 leukocytes 17 % 12-44 Blood monocytes/100 leukocytes 9 % 0-12 Automated blood eosinophils/100 leukocytes 2 % 0-10 Automated blood basophils/100 leukocytes 0 % 0-10 Blood neutrophils automated count (number/volume) 8.4 10*3 1.8-7.8 Blood lymphocytes automated count (number/volume) 2.0 10*3 1.0-4.0 Blood monocytes automated count (number/volume) 1. 1 10*3 0.0-1.0 Automated eosinophil count 0.3 10*3/uL 0 .0-0.3 Automated blood basophil count (count/volume) 0.0 10*3/uL 0.0-0.1 Whole blood basic metabolic panel - 08/24 05/14 05:48 Serum or plasma sodium measurement (moles/volume) 138 mmol/L 135-145 Serum or plasma potassium measurement (moles/volume) 4.3 mmol/L 3.6-5.0 Serum or plasma chloride measurement (moles/volume) 106 mmol/L 98-107 Carbon dioxide 20 mmol/L 21-32 Serum or plasma anion gap determination (moles/volume) 12 mmol/L 5-14 Serum or plasma urea nitrogen measurement (mass/volume ) 15 mg/dL 7-18 Serum or plasma creatinine measurement (mass/volume) 0.75 mg/dL 0.60-1.30 Serum or plasma urea nitrogen/creatinine mass ratio 20 NRG Serum or plasma creatinine measurement w ith calculation of estimated glomerular filtration rate > NRG Serum or plasma glucose measurement (mass/volume) 117 mg/dL 70-105 Serum or plasma calcium measurement (mass/volume) 9.2 mg/dL 8.5-10.1 Capillary blood glucose measurement by g lucometer (mass/volume) - 09/03/18 10:52 Capillary blood glucose measurement by glucometer (mas s/volume) 155 mg/dL 70-110 Capillary blood glucose measurement by g lucometer (mass/volume) - 09/03/18 16:01 Capillary blood glucose measurement by glucometer (mas s/volume) 142 mg/dL 70-110 Capillary blood glucose measurement by g lucometer (mass/volume) - 09/03/18 20:54 Capillary blood glucose measurement by glucometer (mas s/volume) 129 mg/dL 70-110 Capillary blood glucose measurement by g lucometer (mass/volume) - 09/04/18 05:32 Capillary blood glucose measurement by glucometer (mas s/volume) 140 mg/dL 70-110 Capillary blood glucose measurement by g lucometer (mass/volume) - 09/04/18 10:35 Capillary blood glucose measurement by glucometer (mas s/volume) 169 mg/dL 70-110 Arterial blood gas measurement - 9 11:22 Blood pCO2 47 mm[Hg] 35-45 Blood pO2 93 mm[Hg] 79-93 Arterial blood bicarbonate measurement (moles/volume) 31 mmol/L 23-27 Arterial blood base excess by calculation 6.3 mmol /L -2.5-2.5 Arterial blood oxygen saturation measurement 98 % 94-100 * Inhaled oxygen flow rate 5 NRG Arterial blood pH measurement with patient temperature correction 7.43 7.37-7.43 Arterial blood carbon dioxide, total measurement (mole s/volume) 32.1 mmol/L 21.0-31.0 Body site RR NRG Assessment of wrist artery patency prior to arterial p uncture YES-POS NRG Setting of ventilation mode NO NR G Measurement of body temperature 98.3 NRG Capillary blood glucose measurement by g lucometer (mass/volume) - 09/04/18 16:09 Capillary blood glucose measurement by glucometer (mas s/volume) 150 mg/dL 70-110 Capillary blood glucose measurement by g lucometer (mass/volume) - 09/04/18 20:59 Capillary blood glucose measurement by glucometer (mas s/volume) 167 mg/dL 70-110 Comprehensive metabolic panel - 09/05/18 04:40 Serum or plasma sodium measurement (moles/volume) 144 mmol/L 135-145 Serum or plasma potassium measurement (moles/volume) 3.5 mmol/L 3.6-5.0 Serum or plasma chloride measurement (moles/volume) 105 mmol/L 98-107 Carbon dioxide 26 mmol/L 21-32 Serum or plasma anion gap determination (moles/volume) 13 mmol/L 5-14 Serum or plasma urea nitrogen measurement (mass/volume ) 13 mg/dL 7-18 Serum or plasma creatinine measurement (mass/volume) 0.71 mg/dL 0.60-1.30 Serum or plasma urea nitrogen/creatinine mass ratio 18 NRG Serum or plasma creatinine measurement w ith calculation of estimated glomerular filtration rate > NRG Serum or plasma glucose measurement (mass/volume) 127 mg/dL 70-105 Serum or plasma calcium measurement (mass/volume) 9.6 mg/dL 8.5-10.1 Serum or plasma total bilirubin measurement (mass/volu me) 0.4 mg/dL 0.1-1.0 Serum or plasma alkaline phosphatase dipti surement (enzymatic activity/volume) 58 U/L 40-136 Serum or plasma aspartate aminotransfera se measurement (enzymatic activity/volume) 17 U/L 5-34 Serum or plasma alanine aminotransferase measurement (enzymatic activity/volume) 13 U/L 0-55 Serum or plasma protein measurement (mass/volume) 6.5 g/dL 6.4-8.2 Serum or plasma albumin measurement (mass/volume) 3.7 g/dL 3.2-4.5 CALCIUM CORRECTED 9.8 mg/dL 8.5-10.1 Complete blood count (CBC) with automate d white blood cell (WBC) differential - 09/05/18 04:45 Blood leukocytes automated count (number/volume) 10.4 10*3/uL 4.3-11.0 Blood erythrocytes automated count (number/volume) 4.32 10*6/uL 4.35-5.85 Venous blood hemoglobin measurement (mass/volume) 12.6 g/dL 11.5-16.0 Blood hematocrit (volume fraction) 39 % 35-52 Automated erythrocyte mean corpuscular volume 91 [ foz_us] 80-99 Automated erythrocyte mean corpuscular h emoglobin (mass per erythrocyte) 29 pg 25-34 Automated erythrocyte mean corpuscular h emoglobin concentration measurement (mass/volume) 32 g/dL 32-36 Automated erythrocyte distribution width ratio 12. 6 % 10.0- 14.5 Automated blood platelet count (count/volume) 253 10*3/uL 130-400 Automated blood platelet mean volume measurement 10.0 [foz_us] 7.4-10.4 Automated blood neutrophils/100 leukocytes 67 % 42-75 Automated blood lymphocytes/100 leukocytes 20 % 12-44 Blood monocytes/100 leukocytes 11 % 0-12 Automated blood eosinophils/100 leukocytes 1 % 0-10 Automated blood basophils/100 leukocytes 0 % 0-10 Blood neutrophils automated count (number/volume) 7.0 10*3 1.8-7.8 Blood lymphocytes automated count (number/volume) 2.1 10*3 1.0-4.0 Blood monocytes automated count (number/volume) 1. 2 10*3 0.0-1.0 Automated eosinophil count 0.1 10*3/uL 0 .0-0.3 Automated blood basophil count (count/volume) 0.0 10*3/uL 0.0-0.1 Capillary blood glucose measurement by g lucometer (mass/volume) - 09/05/18 10:57 Capillary blood glucose measurement by glucometer (mas s/volume) 219 mg/dL 70-110 Capillary blood glucose measurement by g lucometer (mass/volume) - 09/05/18 15:48 Capillary blood glucose measurement by glucometer (mas s/volume) 142 mg/dL 70-110 Capillary blood glucose measurement by g lucometer (mass/volume) - 09/05/18 20:27 Capillary blood glucose measurement by glucometer (mas s/volume) 160 mg/dL 70-110 Capillary blood glucose measurement by g lucometer (mass/volume) - 09/06/18 05:18 Capillary blood glucose measurement by glucometer (mas s/volume) 110 mg/dL 70-110 Capillary blood glucose measurement by g lucometer (mass/volume) - 09/06/18 16:28 Capillary blood glucose measurement by glucometer (mas s/volume) 124 mg/dL 70-110 Capillary blood glucose measurement by g lucometer (mass/volume) - 09/06/18 21:48 Capillary blood glucose measurement by glucometer (mas s/volume) 155 mg/dL 70-110 Complete blood count (CBC) with automate d white blood cell (WBC) differential - 09/07/18 04:50 Blood leukocytes automated count (number/volume) 9.3 10*3/uL 4.3-11.0 Blood erythrocytes automated count (number/volume) 4.26 10*6/uL 4.35-5.85 Venous blood hemoglobin measurement (mass/volume) 12.6 g/dL 11.5-16.0 Blood hematocrit (volume fraction) 39 % 35-52 Automated erythrocyte mean corpuscular volume 91 [ foz_us] 80-99 Automated erythrocyte mean corpuscular h emoglobin (mass per erythrocyte) 30 pg 25-34 Automated erythrocyte mean corpuscular h emoglobin concentration measurement (mass/volume) 33 g/dL 32-36 Automated erythrocyte distribution width ratio 12. 6 % 10.0- 14.5 Automated blood platelet count (count/volume) 285 10*3/uL 130-400 Automated blood platelet mean volume measurement 9.7 [foz_us] 7.4-10.4 Automated blood neutrophils/100 leukocytes 65 % 42-75 Automated blood lymphocytes/100 leukocytes 21 % 12-44 Blood monocytes/100 leukocytes 10 % 0-12 Automated blood eosinophils/100 leukocytes 3 % 0-10 Automated blood basophils/100 leukocytes 0 % 0-10 Blood neutrophils automated count (number/volume) 6.1 10*3 1.8-7.8 Blood lymphocytes automated count (number/volume) 1.9 10*3 1.0-4.0 Blood monocytes automated count (number/volume) 1. 0 10*3 0.0-1.0 Automated eosinophil count 0.3 10*3/uL 0 .0-0.3 Automated blood basophil count (count/volume) 0.0 10*3/uL 0.0-0.1 Capillary blood glucose measurement by g lucometer (mass/volume) - 09/07/18 04:50 Capillary blood glucose measurement by glucometer (mas s/volume) 127 mg/dL 70-110 Comprehensive metabolic panel - 09/07/18 04:50 Serum or plasma sodium measurement (moles/volume) 144 mmol/L 135-145 Serum or plasma potassium measurement (moles/volume) 4.2 mmol/L 3.6-5.0 Serum or plasma chloride measurement (moles/volume) 107 mmol/L 98-107 Carbon dioxide 24 mmol/L 21-32 Serum or plasma anion gap determination (moles/volume) 13 mmol/L 5-14 Serum or plasma urea nitrogen measurement (mass/volume ) 21 mg/dL 7-18 Serum or plasma creatinine measurement (mass/volume) 0.70 mg/dL 0.60-1.30 Serum or plasma urea nitrogen/creatinine mass ratio 30 NRG Serum or plasma creatinine measurement w ith calculation of estimated glomerular filtration rate > NRG Serum or plasma glucose measurement (mass/volume) 123 mg/dL 70-105 Serum or plasma calcium measurement (mass/volume) 10.0 mg/dL 8.5-10.1 Serum or plasma total bilirubin measurement (mass/volu me) 0.4 mg/dL 0.1-1.0 Serum or plasma alkaline phosphatase dipti surement (enzymatic activity/volume) 60 U/L 40-136 Serum or plasma aspartate aminotransfera se measurement (enzymatic activity/volume) 17 U/L 5-34 Serum or plasma alanine aminotransferase measurement (enzymatic activity/volume) 18 U/L 0-55 Serum or plasma protein measurement (mass/volume) 6.7 g/dL 6.4-8.2 Serum or plasma albumin measurement (mass/volume) 3.7 g/dL 3.2-4.5 CALCIUM CORRECTED 10.2 mg/dL 8.5-10.1 Capillary blood glucose measurement by g lucometer (mass/volume) - 09/07/18 12:17 Capillary blood glucose measurement by glucometer (mas s/volume) 136 mg/dL 70-110 Capillary blood glucose measurement by g lucometer (mass/volume) - 09/07/18 16:10 Capillary blood glucose measurement by glucometer (mas s/volume) 142 mg/dL 70-110 Capillary blood glucose measurement by g lucometer (mass/volume) - 09/07/18 20:46 Capillary blood glucose measurement by glucometer (mas s/volume) 127 mg/dL 70-110 Capillary blood glucose measurement by g lucometer (mass/volume) - 09/08/18 05:30 Capillary blood glucose measurement by glucometer (mas s/volume) 101 mg/dL 70-110 Capillary blood glucose measurement by g lucometer (mass/volume) - 09/08/18 12:29 Capillary blood glucose measurement by glucometer (mas s/volume) 104 mg/dL 70-110 Capillary blood glucose measurement by g lucometer (mass/volume) - 09/08/18 16:06 Capillary blood glucose measurement by glucometer (mas s/volume) 130 mg/dL 70-110 Capillary blood glucose measurement by g lucometer (mass/volume) - 09/08/18 20:15 Capillary blood glucose measurement by glucometer (mas s/volume) 113 mg/dL 70-110 Capillary blood glucose measurement by g lucometer (mass/volume) - 09/09/18 05:55 Capillary blood glucose measurement by glucometer (mas s/volume) 95 mg/dL 70-110 Capillary blood glucose measurement by g lucometer (mass/volume) - 09/09/18 11:32 Capillary blood glucose measurement by glucometer (mas s/volume) 124 mg/dL 70-110 Capillary blood glucose measurement by g lucometer (mass/volume) - 09/09/18 16:43 Capillary blood glucose measurement by glucometer (mas s/volume) 126 mg/dL 70-110 Capillary blood glucose measurement by g lucometer (mass/volume) - 09/09/18 20:03 Capillary blood glucose measurement by glucometer (mas s/volume) 109 mg/dL 70-110 Capillary blood glucose measurement by g lucometer (mass/volume) - 09/10/18 05:48 Capillary blood glucose measurement by glucometer (mas s/volume) 101 mg/dL 70-110 Capillary blood glucose measurement by g lucometer (mass/volume) - 09/10/18 10:56 Capillary blood glucose measurement by glucometer (mas s/volume) 100 mg/dL 70-110 Capillary blood glucose measurement by g lucometer (mass/volume) - 09/10/18 15:29 Capillary blood glucose measurement by glucometer (mas s/volume) 118 mg/dL 70-110 Capillary blood glucose measurement by g lucometer (mass/volume) - 09/10/18 20:33 Capillary blood glucose measurement by glucometer (mas s/volume) 138 mg/dL 70-110 Capillary blood glucose measurement by g lucometer (mass/volume) - 09/11/18 05:26 Capillary blood glucose measurement by glucometer (mas s/volume) 106 mg/dL 70-110 Capillary blood glucose measurement by g lucometer (mass/volume) - 09/11/18 11:15 Capillary blood glucose measurement by glucometer (mas s/volume) 118 mg/dL 70-110 Capillary blood glucose measurement by g lucometer (mass/volume) - 09/11/18 16:27 Capillary blood glucose measurement by glucometer (mas s/volume) 98 mg/dL 70-110 Capillary blood glucose measurement by g lucometer (mass/volume) - 09/11/18 20:52 Capillary blood glucose measurement by glucometer (mas s/volume) 162 mg/dL 70-110 Capillary blood glucose measurement by g lucometer (mass/volume) - 09/12/18 04:41 Capillary blood glucose measurement by glucometer (mas s/volume) 114 mg/dL 70-110 Complete blood count (CBC) with automate d white blood cell (WBC) differential - 09/12/18 04:42 Blood leukocytes automated count (number/volume) 8.4 10*3/uL 4.3-11.0 Blood erythrocytes automated count (number/volume) 4.56 10*6/uL 4.35-5.85 Venous blood hemoglobin measurement (mass/volume) 13.2 g/dL 11.5-16.0 Blood hematocrit (volume fraction) 41 % 35-52 Automated erythrocyte mean corpuscular volume 89 [ foz_us] 80-99 Automated erythrocyte mean corpuscular h emoglobin (mass per erythrocyte) 29 pg 25-34 Automated erythrocyte mean corpuscular h emoglobin concentration measurement (mass/volume) 32 g/dL 32-36 Automated erythrocyte distribution width ratio 12. 2 % 10.0- 14.5 Automated blood platelet count (count/volume) 306 10*3/uL 130-400 Automated blood platelet mean volume measurement 10.1 [foz_us] 7.4-10.4 Automated blood neutrophils/100 leukocytes 63 % 42-75 Automated blood lymphocytes/100 leukocytes 25 % 12-44 Blood monocytes/100 leukocytes 8 % 0-12 Automated blood eosinophils/100 leukocytes 3 % 0-10 Automated blood basophils/100 leukocytes 1 % 0-10 Blood neutrophils automated count (number/volume) 5.3 10*3 1.8-7.8 Blood lymphocytes automated count (number/volume) 2.1 10*3 1.0-4.0 Blood monocytes automated count (number/volume) 0. 7 10*3 0.0-1.0 Automated eosinophil count 0.2 10*3/uL 0 .0-0.3 Automated blood basophil count (count/volume) 0.1 10*3/uL 0.0-0.1 Comprehensive metabolic panel - 09/12/18 04:42 Serum or plasma sodium measurement (moles/volume) 141 mmol/L 135-145 Serum or plasma potassium measurement (moles/volume) 4.1 mmol/L 3.6-5.0 Serum or plasma chloride measurement (moles/volume) 104 mmol/L 98-107 Carbon dioxide 24 mmol/L 21-32 Serum or plasma anion gap determination (moles/volume) 13 mmol/L 5-14 Serum or plasma urea nitrogen measurement (mass/volume ) 19 mg/dL 7-18 Serum or plasma creatinine measurement (mass/volume) 0.76 mg/dL 0.60-1.30 Serum or plasma urea nitrogen/creatinine mass ratio 25 NRG Serum or plasma creatinine measurement w ith calculation of estimated glomerular filtration rate > NRG Serum or plasma glucose measurement (mass/volume) 109 mg/dL 70-105 Serum or plasma calcium measurement (mass/volume) 9.7 mg/dL 8.5-10.1 Serum or plasma total bilirubin measurement (mass/volu me) 0.4 mg/dL 0.1-1.0 Serum or plasma alkaline phosphatase dipti surement (enzymatic activity/volume) 68 U/L 40-136 Serum or plasma aspartate aminotransfera se measurement (enzymatic activity/volume) 32 U/L 5-34 Serum or plasma alanine aminotransferase measurement (enzymatic activity/volume) 51 U/L 0-55 Serum or plasma protein measurement (mass/volume) 7.0 g/dL 6.4-8.2 Serum or plasma albumin measurement (mass/volume) 4.0 g/dL 3.2-4.5 CALCIUM CORRECTED 9.7 mg/dL 8.5-10.1 Capillary blood glucose measurement by g lucometer (mass/volume) - 09/12/18 11:16 Capillary blood glucose measurement by glucometer (mas s/volume) 122 mg/dL 70-110 Capillary blood glucose measurement by g lucometer (mass/volume) - 09/12/18 16:41 Capillary blood glucose measurement by glucometer (mas s/volume) 125 mg/dL 70-110 Capillary blood glucose measurement by g lucometer (mass/volume) - 09/12/18 21:05 Capillary blood glucose measurement by glucometer (mas s/volume) 126 mg/dL 70-110 Capillary blood glucose measurement by g lucometer (mass/volume) - 09/13/18 06:28 Capillary blood glucose measurement by glucometer (mas s/volume) 116 mg/dL 70-110 TSH w/ FREE T4 - 03/20/19 13:45 TSH 3.76 mIU/L 0.40-4.50 T4, FREE 1.1 ng/dL 0.8-1.8 LIPID PANEL - 03/20/19 13:45 CHOLESTEROL, TOTAL 167 mg/dL <200 HDL CHOLESTEROL 40 mg/dL >50 TRIGLYCERIDES 201 mg/dL <150 LDL-CHOLESTEROL 97 mg/dL (calc) NRG CHOL/HDLC RATIO 4.2 (calc) <5.0 NON HDL CHOLESTEROL 127 mg/dL (calc) <13 0 CMP - 03/20/19 13:45 GLUCOSE 97 mg/dL 65-99 UREA NITROGEN (BUN) 16 mg/dL 7-25 CREATININE 0.71 mg/dL 0.50-1.05 eGFR NON-AFR. CYMRO 94 mL/min/1.73m2 > OR = 60 eGFR 109 mL/min/1.73m2 > OR = 60 BUN/CREATININE RATIO NOT APPLICABLE (calc) 6-22 SODIUM 141 mmol/L 135-146 POTASSIUM 4.0 mmol/L 3.5-5.3 CHLORIDE 102 mmol/L 98-110 CARBON DIOXIDE 30 mmol/L 20-32 CALCIUM 10.5 mg/dL 8.6-10.4 PROTEIN, TOTAL 7.1 g/dL 6.1-8.1 ALBUMIN 4.6 g/dL 3.6-5.1 GLOBULIN 2.5 g/dL (calc) 1.9-3.7 ALBUMIN/GLOBULIN RATIO 1.8 (calc) 1.0-2. 5 BILIRUBIN, TOTAL 0.5 mg/dL 0.2-1.2 ALKALINE PHOSPHATASE 80 U/L 33-130 AST 15 U/L 10-35 ALT 18 U/L 6-29 CULTURE, GENITAL - 06/06/19 12:25 CULTURE, GENITAL SEE NOTE NRG SUREPATH PAP - 06/06/19 12:25 CLINICAL INFORMATION: NRG LMP: NRG PREV. PAP: NRG PREV. BX: NRG SOURCE: Vagina NRG STATEMENT OF ADEQUACY: NRG INTERPRETATION/RESULT: NRG CAPTAIN WAITER/WAITRESS: NRG COMMENT NRG Capillary blood glucose measurement by g lucometer (mass/volume) - 06/20/19 08:56 Capillary blood glucose measurement by glucometer (mas s/volume) 133 mg/dL 70-110 Automated blood complete blood count (he mogram) panel - 07/05/19 09:01 Blood leukocytes automated count (number/volume) 9.7 10*3/uL 4.3-11.0 Blood erythrocytes automated count (number/volume) 4.99 10*6/uL 4.35-5.85 Venous blood hemoglobin measurement (mass/volume) 14.8 g/dL 11.5-16.0 Blood hematocrit (volume fraction) 45 % 35-52 Automated erythrocyte mean corpuscular volume 90 [ foz_us] 80-99 Automated erythrocyte mean corpuscular h emoglobin (mass per erythrocyte) 30 pg 25-34 Automated erythrocyte mean corpuscular h emoglobin concentration measurement (mass/volume) 33 g/dL 32-36 Automated erythrocyte distribution width ratio 13. 2 % 10.0- 14.5 Automated blood platelet count (count/volume) 270 10*3/uL 130-400 Automated blood platelet mean volume measurement 10.5 [foz_us] 7.4-10.4 PT panel in platelet poor plasma by coag ulation assay - 07/05/19 09:01 Prothrombin time (PT) in platelet poor plasma by coagu lation assay 14.7 s 12.2-14.7 INR in platelet poor plasma or blood by coagulation as say 1.1 0.8-1.4 Activated partial thromboplastin time (a PTT) in platelet poor plasma bycoagulation assay - 07/05/19 09:01 Activated partial thromboplastin time (a PTT) in platelet poor plasma bycoagulation assay 29 s 24-35 Complete urinalysis with reflex to cultu re - 07/05/19 09:01 Urine color determination YELLOW NRG Urine clarity determination CLEAR NR G Urine pH measurement by test strip 6.5 5-9 Specific gravity of urine by test strip 1.020 1.016-1.022 Urine protein assay by test strip, semi-quantitative NEGATIVE NEGATIVE Urine glucose detection by automated test strip NE GATIVE NEGATIVE Erythrocytes detection in urine sediment by light micr oscopy NEGATIVE NEGATIVE Urine ketones detection by automated test strip NE GATIVE NEGATIVE Urine nitrite detection by test strip NEGATIVE NEGATIVE Urine total bilirubin detection by test strip NEGA TIVE NEGATIVE Urine urobilinogen measurement by automated test strip (mass/volume) 0.2 mg/dL < = 1.0 Urine leukocyte esterase detection by dipstick NEG ATIVE NEGATIVE Automated urine sediment erythrocyte cou nt by microscopy (number/high power field) RARE NRG Automated urine sediment leukocyte count by microscopy (number/high power field) NONE NRG Bacteria detection in urine sediment by light microsco py TRACE NRG Squamous epithelial cells detection in u rine sediment by light microscopy 2-5 NRG Crystals detection in urine sediment by light microsco py NONE NRG Casts detection in urine sediment by light microscopy NONE NRG Mucus detection in urine sediment by light microscopy NEGATIVE NRG Complete urinalysis with reflex to culture NO NRG Comprehensive metabolic panel - 07/05/19 09:01 Serum or plasma sodium measurement (moles/volume) 141 mmol/L 135-145 Serum or plasma potassium measurement (moles/volume) 4.0 mmol/L 3.6-5.0 Serum or plasma chloride measurement (moles/volume) 107 mmol/L 98-107 Carbon dioxide 22 mmol/L 21-32 Serum or plasma anion gap determination (moles/volume) 12 mmol/L 5-14 Serum or plasma urea nitrogen measurement (mass/volume ) 12 mg/dL 7-18 Serum or plasma creatinine measurement (mass/volume) 0.76 mg/dL 0.60-1.30 Serum or plasma urea nitrogen/creatinine mass ratio 16 NRG Serum or plasma creatinine measurement w ith calculation of estimated glomerular filtration rate > NRG Serum or plasma glucose measurement (mass/volume) 129 mg/dL 70-105 Serum or plasma calcium measurement (mass/volume) 9.6 mg/dL 8.5-10.1 Serum or plasma total bilirubin measurement (mass/volu me) 0.4 mg/dL 0.1-1.0 Serum or plasma alkaline phosphatase dipti surement (enzymatic activity/volume) 71 U/L 40-136 Serum or plasma aspartate aminotransfera se measurement (enzymatic activity/volume) 26 U/L 5-34 Serum or plasma alanine aminotransferase measurement (enzymatic activity/volume) 30 U/L 0-55 Serum or plasma protein measurement (mass/volume) 7.2 g/dL 6.4-8.2 Serum or plasma albumin measurement (mass/volume) 4.4 g/dL 3.2-4.5 CALCIUM CORRECTED 9.3 mg/dL 8.5-10.1 Lipid 1996 panel - 07/05/19 09:01 Serum or plasma triglyceride measurement (mass/volume) 167 mg/dL <150 Serum or plasma cholesterol measurement (mass/volume) 129 mg/dL < 200 Serum or plasma cholesterol in HDL measurement (mass/v olume) 30 mg/dL 40-60 Cholesterol in LDL [mass/volume] in serum or plasma by direct assay 81 mg/dL 1-129 Serum or plasma cholesterol in VLDL measurement (mass/ volume) 33 mg/dL 5-40 Methicillin resistant Staphylococcus aur eus (MRSA) screening culture - 07/05/19 09:01 Methicillin resistant Staphylococcus aureus (MRSA) scr eening culture NEG NRG Encounters ACCT No. Visit Date/Time Discharge Status Pt. Type Provider Facility Loc./Unit Complaint [id number] 09/16/2018 09:23:00 09/16/2018 23:59: 00 DIS Outpatient SUNNY STATON [id number] 09/01/2018 08:30:00 09/01/2018 11:50: 00 DIS Outpatient SUNNY STATON [id number] 08/25/2018 10:33:00 08/25/2018 23:59: 00 DIS Outpatient SUNNY STATON [id number] 07/18/2018 09:16:00 07/18/2018 23:59: 00 DIS Outpatient SUNNY STATON [id number] 07/12/2018 09:34:00 07/12/2018 23:59: 00 DIS Outpatient ZAMZAM ANTONIO [id number] 05/10/2018 12:57:00 05/10/2018 23:59: 00 DIS Outpatient ZAMZAM ANTONIO [id number] 12/13/2018 13:38:17 Document Registration [id number] 08/31/2018 08:38:28 Document Registration [id number] 06/12/2019 09:40:00 06/12/2019 23:59: 59 CLS Outpatient JOSE LOYA [facility] [id number] 06/06/2019 10:40:00 Document Registration [id number] 03/20/2019 13:40:00 Document Registration [id number] 06/29/2018 12:00:00 Document Registration [id number] 09/29/2017 15:40:00 Document Registration [id number] 07/22/2017 11:20:00 Document Registration [id number] 06/03/2017 11:20:00 Document Registration [id number] 05/05/2017 11:20:00 Document Registration [id number] 04/06/2017 12:00:00 Document Registration [id number] 07/05/2019 08:39:00 16:20:00 DIS Outpatient ANN-MARIE DIMAS MD [facility] CATH ABNORMAL STRESS TEST,CP ,SOB,DM [id number] 06/26/2019 07:42:00 23:59:59 CLS Outpatient ANN-MARIE DIMAS MD [facility] CARD COPD,DM,HTN,HYPERLIPIDE SELINA [id number] 06/20/2019 08:43:00 12:35:00 DIS Outpatient HERACLIO CHAVARRIA DO [facility] ENDO CHANGE IN BOWEL HABITS/ FAMILY HX COLON CA/GERD [id number] 06/19/2019 08:30:00 10:22:00 DIS Outpatient HERACLIO CHAVARRIA DO [facility] PREOP COLONOSCOPY/EGD [id number] 06/13/2019 12:14:00 23:59:59 CLS Outpatient JAMAL GIBBONS [facility] CARD COPD,DM,HTN,HYPERLIPIDEMIA [id number] 01/17/2019 09:56:00 23:59:59 CLS Outpatient JOSE LOYA MD [facility] RAD SCREENING [id number] 12/19/2018 09:52:00 23:59:59 CLS Outpatient MYLES CINTRON MD [facility] ORTHO [id number] 11/08/2018 09:14:00 23:59:59 CLS Outpatient PADMINI JAUREGUI MD [facility] RAD OSTEOPOROSIS WITH PATHO LOGICAL FX [id number] 11/01/2018 09:28:00 23:59:59 CLS Outpatient MYLES CINTRON MD [facility] ORTHO [id number] 10/18/2018 10:48:00 23:59:59 CLS Outpatient MYLES CINTRON MD [facility] ORTHO [id number] 10/04/2018 10:30:00 23:59:59 CLS Outpatient MYLES CINTRON MD [facility] ORTHO [id number] 09/20/2018 10:31:00 23:59:59 CLS Outpatient MYLES CINTRON MD [facility] ORTHO [id number] 09/06/2018 10:47:00 11:25:00 DIS Inpatient GARZA DO, SUSAN [facility] IRF RIGHT ANKLE FX, CARPAL TUNNEL RELEASE [id number] 09/02/2018 15:15:00 10:48:00 DIS Inpatient GARZA DO, SUSAN [facility] 4TH FALL, ANKLE FX [id number] 05/07/2018 12:44:00 23:59:59 CLS Outpatient JAMAL GIBBONS [facility] LAB CHEST PAIN, HTN [id number] 12/24/2017 08:26:00 23:59:59 CLS Outpatient SOTO STRICKLAND APRN [facility] RAD WELL WOMAN EXAM [id number] 05/20/2017 10:55:00 23:59:59 CLS Outpatient ANN-MARIE DIMAS MD [facility] CARD CHEST PAIN [id number] 05/07/2017 07:58:00 018 23:59:59 CLS Preadmit MALINDA WEBBER DO [facility] RAD [id number] 03/08/2017 13:15:00 017 23:59:59 CLS Preadmit MALINDA WEBBER DO [facility] RAD CERVICAL SPONDYLOSIS [id number] 03/03/2017 08:10:00 017 23:59:59 CLS Outpatient MALINDA WEBBER DO [facility] RAD CERVICAL SPONDY LOSIS [id number] 02/17/2017 13:28:00 017 23:59:59 CLS Preadmit SOTO STRICKLAND APRN [facility] REHAB LOW BACK PAIN [id number] 05/27/2016 07:39:00 017 23:59:59 CLS Outpatient JOSE LOYA MD [facility] CARD Z01.810 [id number] 05/25/2016 07:30:00 017 23:59:59 CLS Outpatient ANN-MARIE DIMAS MD [facility] CARD CHEST PAIN SYNDROME,HTN ,ARIAS [id number] 05/20/2016 13:40:00 017 23:59:59 CLS Outpatient JORDAN ASTUDILLO DO [facility] RT COPD,ARIAS,OBESITY,FATIGU E [id number] 05/12/2016 11:37:00 017 23:59:59 CLS Outpatient JORDAN ASTUDILLO DO [facility] RAD COPD,ARIAS,FATIGUE [id number] 11/04/2015 08:46:00 016 12:15:00 DIS Outpatient JAYDA GUERRERO MD [facility] SDC DYSPHAGIA [id number] 10/31/2015 05:50:00 016 23:59:59 CLS Outpatient JAYDA GUERRERO MD [facility] PREOP DYSPHAGIA [id number] 06/13/2015 11:35:00 016 23:59:59 CLS Outpatient FREDA AYALA DO [facility] CARD ABD PAIN [id number] 02/13/2015 08:13:00 015 23:59:59 CLS Outpatient ANN-MARIE DIMAS MD [facility] CARD CP HTN [id number] 12/25/2014 12:33:00 015 23:59:59 CLS Outpatient ANN-MARIE DIMAS MD [facility] CP,HTN [id number] 12/14/2014 13:59:00 015 23:59:59 CLS Outpatient JAMIL VERAS MD [facility] LAB CAROTID BODY TUMOR [id number] 12/14/2014 13:21:00 015 23:59:59 CLS Outpatient ANN-MARIE DIMAS MD [facility] RAD CAROTID BODY TUMOR [id number] 07/20/2014 20:30:00 015 06:25:00 DIS Outpatient ELVER ARROYO [facility] SLEEP ARIAS,SNORING [id number] 12/06/2013 10:51:00 014 15:55:00 DIS Outpatient ANUSHKA LARSON MD [facility] SDC INCONTINENCE;INTRINSIC SPHINCTER DEFICIENCY [id number] 12/01/2013 07:42:00 014 23:59:59 CLS Outpatient ANUSHKA LARSON MD [facility] PREOP INCONTINENCE;INTRINSIC SPHINCTER DEFICIENCY [id number] 11/21/2018 10:00:00 Document Registration [id number] 06/13/2015 11:34:00 Document Registration [id number] 04/29/2012 10:53:00 Document Registration [id number] 07/09/2014 10:33:00 07/09/2014 23:59: 59 CLS Outpatient ELVER ARROYO APRN [id number] 03/12/2014 14:59:00 03/12/2014 23:59: 59 CLS Outpatient RADHA ROJAS MD [id number] 03/12/2014 14:59:00 03/12/2014 23:59: 59 CLS Outpatient RADHA ROJAS MD [id number] 02/07/2014 10:01:00 02/07/2014 23:59: 59 CLS Outpatient RODO MOREIRA APRN [id number] 12/11/2013 16:31:00 12/11/2013 23:59: 59 CLS Outpatient RADHA ROJAS MD [id number] 07/26/2013 13:11:00 07/26/2013 23:59: 59 CLS Outpatient RODO MOREIRA APRN [id number] 01/09/2013 09:40:00 01/09/2013 23:59: 59 CLS Outpatient RADHA ROJAS MD [id number] 01/09/2013 09:40:00 01/09/2013 23:59: 59 CLS Outpatient RADHA ROJAS MD [id number] 05/23/2012 10:46:00 05/23/2012 23:59: 59 CLS Outpatient [id number] 01/27/2012 13:42:00 01/27/2012 23:59:5 9 CLS Outpatient [id number] 12/06/2012 15:42:00 Document Registration [id number] 06/15/2012 10:40:00 Document Registration
== END 2019-07-05 16:20 | disposition home or self-care (01) ==
LOC: CATH 08:39 → CSD 12:00 → CATH 16:20
PROVIDERS: ATTEND Internal Medicine Cardiovascular Disease
DX: I25.10 Atherosclerotic heart disease of native coronary artery without angina pectoris (principal); I65.29 Occlusion and stenosis of unspecified carotid artery; I10 Essential (primary) hypertension; E78.2 Mixed hyperlipidemia; E66.9 Obesity, unspecified; E11.9 Type 2 diabetes mellitus without complications; E03.9 Hypothyroidism, unspecified; J44.9 Chronic obstructive pulmonary disease, unspecified; M19.90 Unspecified osteoarthritis, unspecified site; G47.33 Obstructive sleep apnea (adult) (pediatric); F32.9 Major depressive disorder, single episode, unspecified; F20.9 Schizophrenia, unspecified; F41.9 Anxiety disorder, unspecified; Z68.38 Body mass index [BMI] 38.0-38.9, adult; Z88.0 Allergy status to penicillin; Z88.2 Allergy status to sulfonamides; Z99.89 Dependence on other enabling machines and devices; Z79.899 Other long term (current) drug therapy; Z79.84 Long term (current) use of oral hypoglycemic drugs; Z82.3 Family history of stroke
CPT/HCPCS: 36415; 71045; 80053; 80061; 81000; 85027; 85610; 85730; 87081; 93458

== ENCOUNTER → 2020-02-01 | Outpatient (CLI) | payer MEDICARE, MEDICAID ==
[~2020-02-01] MED LIST changes: +ICOS1CAP PO; -PANT40TA3 PO; +PANT40TA52 PO; +SERT25TA5 PO; +TRAZ150T72 PO
--- NOTE | 2020-02-01 08:55 | Diagnostic Imaging Report ---
EXAMINATION: CT Chest without contrast (lung screening). TECHNIQUE: Multiple contiguous axial images were obtained through the chest without the use of intravenous contrast according to lung cancer screening protocol. All CT scans use one or more of the following dose optimizing techniques: automated exposure control, MA and/or KvP adjustment based on a patient size and exam type, or iterative reconstruction. HISTORY: 30 pack year history of smoking. COMPARISON: None available. FINDINGS: Thyroid: The thyroid is normal. Mediastinum: Heart size is normal without significant pericardial effusion. Calcifications of the aorta and coronary vessels. Thoracic aorta is normal in caliber. No suspicious lymphadenopathy. Lungs and airways: The lungs are clear without consolidation, pleural effusion, or pneumothorax. Emphysema of both lungs. A 0.3 cm right upper lobe pulmonary nodule on (series 2 image 66). There is a 0.5 cm partially nodule within the left upper lobe (series 2 image 64). There is a 0.4 cm pulmonary nodule within the left lower lobe (series 2 image 102). There is a 0.4 cm pulmonary nodule within the posterior left lower lobe (series 2 image 117). Bibasilar atelectasis. The airways are normal. Upper abdomen: A small hiatal hernia is present. Musculoskeletal: No suspicious osseous lesion or compression fracture. IMPRESSION: 1. Multiple bilateral pulmonary nodules measuring up to 0.5 cm in the left upper lobe. Recommend 6 month low-dose CT follow-up. LUNG-RADS CATEGORY: 3 MODIFIER: None. Dictated by: Dictated on workstation # [id number]
== END ==
LOC: RAD 08:45
PROVIDERS: ATTEND Family Medicine
DX: Z12.2 Encounter for screening for malignant neoplasm of respiratory organs (principal); Z00.00 Encounter for general adult medical examination without abnormal findings; F17.210 Nicotine dependence, cigarettes, uncomplicated

== ENCOUNTER → 2020-03-05 | Outpatient (CLI) | payer MEDICARE, MEDICAID ==
[~2020-03-05] MED LIST changes: +AMLO-251 PO; -AMLO10TA7 PO
--- NOTE | 2020-03-05 14:33 | Diagnostic Imaging Report ---
INDICATION: Routine screening. COMPARISON: 01/17/2019 and 12/24/2017. TECHNIQUE: 2D and 3D bilateral screening mammography was performed with CAD. FINDINGS: Scattered fibroglandular densities are identified bilaterally. No spiculated mass or malignant appearing microcalcifications are seen. The axillae are unremarkable. IMPRESSION: No mammographic features suspicious for malignancy are identified. ACR BI-RADS Category 2: Benign findings. Result letter will be mailed to the patient. Note: At least 10% of breast cancer is not imaged by mammography. Dictated by: Dictated on workstation # [id number]
== END ==
LOC: RAD 09:15
PROVIDERS: ATTEND Family Medicine
DX: Z12.31 Encounter for screening mammogram for malignant neoplasm of breast (principal); Z80.3 Family history of malignant neoplasm of breast
CPT/HCPCS: 77063; 77067

== ENCOUNTER → 2020-09-02 | Outpatient (CLI) | payer MEDICARE, MEDICAID ==
[~2020-09-02] MED LIST changes: -MONT10TA26 PO; +MONT10TA32 PO; -NICO-588 TD; +NICO-685 TD; +SERT-412 PO; +SERT-414 PO; -SERT25TA5 PO
--- NOTE | 2020-09-02 09:48 | Diagnostic Imaging Report ---
PROCEDURE: CT chest without contrast. TECHNIQUE: Multiple contiguous axial images were obtained through the chest without the use of intravenous contrast. Auto Exposure Controls were utilized during the CT exam to meet ALARA standards for radiation dose reduction. INDICATION: Multiple bilateral pulmonary nodules. COMPARISON: 02/01/2020 There has been no significant change in several bilateral pulmonary nodules measuring less than 0.5 cm in diameter over the six-month interval. No new mass or infiltrate is identified. There is no significant pleural or pericardial fluid. Coronary artery calcifications are noted. IMPRESSION: Stable appearance of tiny bilateral pulmonary nodules. Stability over 6 months and multiplicity are suggestive of benign etiology such as granulomatous disease however distal followup study could be performed in 12 months to document ongoing stability. Dictated by: Dictated on workstation # [id number]
== END ==
LOC: RAD 08:21
PROVIDERS: ATTEND Family Medicine
DX: R91.8 Other nonspecific abnormal finding of lung field (principal)
CPT/HCPCS: 71250

== ENCOUNTER → 2020-12-19 | Outpatient (CLI) | payer MEDICARE, MEDICAID ==
[2020-12-19 11:47] LABS: BILIRUBIN,URINE NEGATIVE (NEGATIVE); CLARITY,URINE CLEAR; COLOR,URINE YELLOW; GLUCOSE, URINE (UA) NEGATIVE (NEGATIVE); KETONES,URINE NEGATIVE (NEGATIVE); LEUKOCYTE ESTERASE ,URINE TRACE (NEGATIVE); NITRITE,URINE NEGATIVE (NEGATIVE); PH,URINE 5.5 (5-9); PROTEIN,URINE NEGATIVE (NEGATIVE)
[2020-12-19 11:48] LABS: BASOPHILS # (AUTO) 0.1 10^3/uL (0.0-0.1); BASOPHILS % (AUTO) 1 % (0-10)
[2020-12-19 11:50] LABS: EOSINOPHILS # (AUTO) 0.1 10^3/uL (0.0-0.3); EOSINOPHILS % (AUTO) 1 % (0-10); HEMATOCRIT 46 % (35-52); HEMOGLOBIN 15.1 g/dL (11.5-16.0); LYMPHOCYTES # (AUTO) 2.5 10^3/uL (1.0-4.0); LYMPHOCYTES % (AUTO) 25 % (12-44); MEAN CORPUSCULAR HEMOGLOBIN 30 pg (25-34); MEAN CORPUSCULAR HGB CONC 33 g/dL (32-36); MEAN CORPUSCULAR VOLUME 92 fL (80-99); MEAN PLATELET VOLUME 10.4 fL (9.0-12.2); MONOCYTES # (AUTO) 0.9 10^3/uL (0.0-1.0); MONOCYTES % (AUTO) 9 % (0-12); NEUTROPHILS # (AUTO) 6.5 10^3/uL (1.8-7.8); NEUTROPHILS % (AUTO) 64 % (42-75); PLATELET COUNT 213 10^3/uL (130-400); WHITE BLOOD COUNT 10.1 10^3/uL (4.3-11.0)
[2020-12-19 12:08] LABS: BACTERIA,URINE TRACE /HPF; ERYTHROCYTE SEDIMENTATION RATE 1 MM/HR (0-30); SQUAMOUS EPITHELIAL CELL,UR 0-2 /HPF; WBC,URINE 0-2 /HPF
[2020-12-19 12:15] LABS: ALANINE AMINOTRANSFERASE 35 U/L (0-55); ALBUMIN 4.6 GM/DL (3.2-4.5); ALKALINE PHOSPHATASE 72 U/L (40-136); BILIRUBIN,TOTAL 0.6 MG/DL (0.1-1.0); BUN/CREATININE RATIO 19; CALCIUM 10.3 MG/DL (8.5-10.1); CARBON DIOXIDE 21 MMOL/L (21-32); CHLORIDE 105 MMOL/L (98-107); CREATININE SERUM 0.75 MG/DL (0.60-1.30); GFR ESTIMATED 79; GLUCOSE 114 MG/DL (70-105); SODIUM 138 MMOL/L (135-145); TOTAL PROTEIN 7.8 GM/DL (6.4-8.2)
== END ==
LOC: LAB 10:50
PROVIDERS: ATTEND Nurse Practitioner Family
DX: D48.5 Neoplasm of uncertain behavior of skin (principal); D18.01 Hemangioma of skin and subcutaneous tissue; D89.89 Other specified disorders involving the immune mechanism, not elsewhere classified
CPT/HCPCS: 36415; 80053; 81000; 85025; 85597; 85610; 85613; 85652; 85705; 85730; 86038; 86039; 86141; 86431

== ENCOUNTER 2022-04-07 09:14 | Emergency (ER) | payer OTHER, MEDICAID ==
[~2022-04-07] VITALS: Ht 152 cm; Wt 88.5 kg
[~2022-04-07 09:14] MED LIST changes: -ESTR2TAB PO; +ESTR2TAB3 PO; +MONT-40 PO; -MONT10TA32 PO
--- NOTE | 2022-04-07 11:09 | ED Cough/URI ---
General Chief Complaint: Cough/Cold/Flu Symptoms Stated Complaint: COUGH | SNEEZING | RUNNY NOSE Nursing Triage Note: PT AMB TO RM 9 PT CO COLD COUGH AND SNEEZING NO FEVER FOR A COUPLE DAYS Source: patient Exam Limitations: no limitations History of Present Illness Date Seen by Provider: Apr 07, 2022 Time Seen by Provider: 09:43 Initial Comments Here with cough and congestion as well as ear fullness and fever for 2+ days. She arrives with her who has similar symptoms for same timeframe. Denies diarrhea but does have some nausea and occasional vomiting. Does have history of multiple medical problems and takes her medications as directed. Timing/Duration: other (2 days) Severity/Quality: moderate, dry cough Prior Episodes/Possible Cause: occasional episodes Modifying Factors: Improves With Rest Associated Symptoms: cough, fever/chills, muscle aches, nasal congestion, nasal drainage, sore throat Allergies and Home Medications Allergies Coded Allergies: Penicillins (Unverified Allergy, Mild, RASH, 06/19/19) Sulfa (Sulfonamide Antibiotics) (Verified Allergy, Mild, RASH, 06/19/19) Patient Home Medication List Home Medication List Reviewed: Yes Albuterol Sulfate (Ventolin Hfa) 18 Gm Hfa.aer.ad, 2 PUFF INH Q4H PRN for SH ORTNESS OF BREATH, (Reported) Entered as Reported by: WENDY MARMOLEJO on 09/05/181203 Amlodipine Besylate (Amlodipine Besylate) 10 Mg Tablet, 10 MG PO DAILY, (Reported) Entered as Reported by: WENDY MARMOLEJO on 09/05/181203 Atorvastatin Calcium (Atorvastatin Calcium) 40 Mg Tablet, 40 MG PO HS, (Report ed) Entered as Reported by: WENDY MARMOLEJO on 09/05/18 120 Cyclosporine (Restasis) 1 Each Droperette, 1 DROP OU BID, (Reported) Entered as Reported by: MAXIMINO TONG on 09/02/18 1836 Desmopressin Acetate (Desmopressin Acetate) 0.2 Mg Tablet, 0.6 MG PO HS, (Reported) Entered as Reported by: WENDY MARMOLEJO on 09/05/18 120 Dulaglutide (Trulicity) 0.75 Mg/0.5 Ml Pen.injctr, 0.75 MG SC Tu, (Reported) Entered as Reported by: WENDY MARMOLEJO on 09/05/18 120 Estradiol (Estradiol Tablet) 2 Mg Tablet, 2 MG PO DAILY, (Reported) Entered as Reported by: WENDY MARMOLEJO on 09/05/18 120 Fluticasone Propionate (Fluticasone Propionate) 16 Gm [place].susp, 2 SPRAYS NS DAILY, (Reported) Entered as Reported by: WENDY MARMOLEJO on 09/05/18 120 Fluticasone/Salmeterol (Advair Hfa 115-21 Mcg Inhaler) 12 Gm Hfa.aer.ad, 2 PUFF IH BID@ Prescribed by: SUSAN GARZA on 09/13/18 0826 Fluticasone/Vilanterol (Breo Ellipta 100-25 Mcg INH) 1 Each Blst.w.dev, 1 PUFF INH DAILY, (Reported) Entered as Reported by: WENDY MARMOLEJO on 09/05/18 120 Gabapentin (Gabapentin) 600 Mg Tablet, 1,200 MG PO TID, (Reported) Entered as Reported by: WENDY MARMOLEJO on 09/05/18 120 Hydroxyzine HCl (Hydroxyzine HCl) 50 Mg Tablet, 50 MG PO TID PRN for ANXIETY, (Reported) Entered as Reported by: WENDY MARMOLEJO on 09/05/18 120 Ibuprofen (Ibuprofen) 800 Mg Tablet, 800 MG PO Q8H PRN for PAIN-MILD, (Reported) Entered as Reported by: FATEMEH PORTILLO on 06/19/19 0839 Icosapent Ethyl (Vascepa) 1 Gm Capsule, 1 GM PO BID, (Reported) Entered as Reported by: NICK BREAUX on 07/05/19 0938 Imipramine HCl (Imipramine HCl) 50 Mg Tablet, 50 MG PO HS, (Reported) Entered as Reported by: WENDY MARMOLEJO on 09/05/18 120 Levothyroxine Sodium (Levothyroxine Sodium) 150 Mcg Tablet, 150 MCG PO DAILY, (Reported) Entered as Reported by: WENDY MARMOLEJO on 09/05/18 120 Loxapine Succinate (Loxapine) 10 Mg Capsule, 10 MG PO BID PRN for HEARING VOICES, (Reported) Entered as Reported by: WENDY MARMOLEJO on 09/05/18 120 Magnesium Oxide (Magnesium) 250 Mg Tablet, 250 MG PO DAILY, (Reported) Entered as Reported by: FATEMEH PORTILLO on 06/19/19 0839 Mirabegron (Myrbetriq) 50 Mg Tab.er.24h, 50 MG PO HS, (Reported) Entered as Reported by: MAXIMINO TONG on 09/02/18 183 Montelukast Sodium (Montelukast Sodium) 10 Mg Tablet, 10 MG PO HS, (Reported) Entered as Reported by: WENDY MARMOLEJO on 09/05/18 1204 Multivitamin (Multi-Vitamin Daily) 1 Each Tablet, 1 TAB PO DAILY, (Reported) Entered as Reported by: MAXIMINO TONG on 09/02/18 183 Paliperidone Palmitate (Invega Sustenna) 234 Mg/1.5 Ml Syringe, 234 MG INJ EVERY 3 WEEKS, (Reported) Entered as Reported by: WENDY MARMOLEJO on 09/05/18 120 Pantoprazole Sodium (Pantoprazole Sodium) 40 Mg Tablet.dr, 40 MG PO DAILY, (Reported) Entered as Reported by: WENDY MARMOLEJO on 09/05/18 1204 Polyethylene Glycol 3350 (Miralax) 17 Gm Powd.pack, 17 GM PO DAILY PRN for CONSTIPATION-1ST LINE, (Reported) Entered as Reported by: FATEMEH PORTILLO on 06/19/19 0839 Sennosides/Docusate Sodium (Senna-Time S Tablet) 1 Each Tablet, 1 EA PO BID Prescribed by: SUSAN GARZA on 09/13/18 0826 Sertraline HCl (Sertraline HCl) 100 Mg Tablet, 200 MG PO DAILY, (Reported) Entered as Reported by: WENDY MARMOLEJO on 09/05/18 1204 Sertraline HCl (Sertraline HCl) 25 Mg Tablet, 25 MG PO DAILY, (Reported) Entered as Reported by: NICK BREAUX on 07/05/19 0938 Spironolactone (Spironolactone) 50 Mg Tablet, 50 MG PO DAILY, (Reported) Entered as Reported by: WENDY MARMOLEJO on 09/05/18 1204 Sumatriptan Succinate (Sumatriptan Succinate) 50 Mg Tablet, 50 MG PO UD PRN for MIGRAINE, (Reported) Entered as Reported by: WENDY MARMOLEJO on 09/05/18 1204 Trazodone HCl (Trazodone HCl) 150 Mg Tablet, 150 MG PO HS, (Reported) Entered as Reported by: NICK BREAUX on 07/05/19 0938 Triamcinolone Acetonide (Triamcinolone Acetonide 0.5% Cream) 15 Gm Cream..g., TOP QID, (Reported) Entered as Reported by: WENDY MARMOLEJO on 09/05/18 1204 Review of Systems Review of Systems Constitutional: see HPI, chills, fever EENTM: nose congestion, throat pain Respiratory: cough; No short of breath Cardiovascular: No chest pain, No edema Gastrointestinal: nausea, vomiting Musculoskeletal: No joint pain; muscle pain Skin: no symptoms reported Past Bxsmcyi-Tgabvq-Oinsgc Hx Patient Social History Tobacco Use?: Yes Tobacco type used: Cigarettes Smoking Status: Current Everyday Smoker Substance use?: No Alcohol Use?: No Pt feels they are or have been: Yes Immunizations Up To Date Tetanus Booster (TDap): Unknown Influenza Vaccine Up-to-Date: Yes; Up-to-Date First/Initial COVID19 Vaccinat: COVID Second COVID19 Vaccination Shadi: COVID COVID19 Vaccine 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: UNKNOWN Seasonal Allergies Seasonal Allergies: Yes Past Medical History Surgeries: Yes (C/S X2, Hiatal hernia, ankle fx) Section, Gallbladder, Orthopedic Respiratory: Yes Asthma, Sleep Apnea, COPD Currently Using CPAP: Yes Cardiac: Yes High Cholesterol, Hypertension Neurological: No Sexually Transmitted Disease: No HIV/AIDS: No Genitourinary: No Gastrointestinal: Yes Gastroesophageal Reflux, Chronic Constipation, Chronic Diarrhea Musculoskeletal: Yes Arthritis Endocrine: Yes Hypothyroidsim, Diabetes, Non-Insulin dep, Lupus HEENT: Yes (glasses) Loss of Vision: Denies Hearing Impairment: Denies Cancer: No Psychosocial: Yes Anxiety, Schizophrenia, Depression Integumentary: No Blood Disorders: No Adverse Reaction/Blood Tranf: No (N/A) Family Medical History Reviewed Nursing Family Hx Arthritis 19 FATHER 19 MOTHER Asthma 19 MOTHER Colon cancer 19 MOTHER Colon cancer 19 MOTHER Diabetes mellitus G8 SISTER Myocardial infarction G8 BROTHER Thyroid disease 19 MOTHER No Family History of: AIDS Abdominal aortic aneurysm Alcoholism Completed stroke Drug abuse Gastroenteritis Hypertension Parkinson's disease Prostate cancer Psychosocial problem Respiratory disorder Seizure disorder Severe allergy Physical Exam Vital Signs - First Documented 04/07/22 09:18 Temp 37.4 Pulse 94 Resp 18 B/P (MAP) 157/82 (107) Pulse Ox 94 Capillary Refill : Less Than 3 Seconds Height: 4'59.00" Weight: 199lbs. 4.8oz. 90.298393qj; 38.00 BMI Method:Stated General Appearance: WD/WN, no apparent distress HEENT: PERRL/EOMI, pharynx normal, other (TMs bulging bilateral without significant erythema) Neck: full range of motion, supple Respiratory: lungs clear, normal breath sounds Cardiovascular: regular rate, rhythm, no murmur Gastrointestinal: non tender, soft Neurologic/Psychiatric: alert, oriented x 3 Skin: normal color, warm/dry Progress/Results/Core Measures Suspected Sepsis SIRS Temperature: Pulse: 94 Respiratory Rate: 18 Blood Pressure 157 /82 Mean: 107 Results/Orders Lab Results Laboratory Tests Test 04/07/22 09:24 Range/Units Influenza Type A (RT-PCR) Detected H Not Detecte Influenza Type B (RT-PCR) Not Detected Not Detecte SARS-CoV-2 RNA (RT-PCR) Not Detected Not Detecte My Orders Orders - NICKY HASSAN MD Influenza A And B By Pcr (04/07/22 09:44) Covid 19 Inhouse Test (04/07/22 09:44) Vital Signs/I&O 04/07/22 09:18 Temp 37.4 Pulse 94 Resp 18 B/P (MAP) 157/82 (107) Pulse Ox 94 Capillary Refill : Less Than 3 Seconds Blood Pressure Mean: 107 Progress Note : Progress Note Seen and evaluated. Influenza and COVID testing initiated. Monitor patient. 1105: Influenza A positive. Patient outside of window for Tamiflu. This was discussed with patient and family. With her nausea, we will initiate xfti-rxe-hujqsao ondansetron. She will also do swxe-dpc-cbgobop therapy including Afrin nasal spray. Directions and discharge instructions. Discharged home with return precautions. Patient verbalized understanding instructions and agreement with plan. Departure Impression Primary Impression: Influenza A Disposition: 01 HOME, SELF-CARE Condition: Stable Departure-Patient Inst. Decision time for Depature: 11:21 Referrals: JOSE LOYA MD (PCP/Family) Primary Care Physician Patient Instructions: Flu, Adult (DC) Add. Discharge Instructions: All discharge instructions reviewed with patient and/or family. Voiced understanding. You may take Tylenol/acetaminophen 1000 mg every 6 hours as needed for fever or pain or you may use mpqd-dvu-pezldhn cough and cold medicine but do not take both at the same time as they both have acetaminophen in them.. You may take ibuprofen 600 mg every 8 hours as needed for fever or pain. You may use Afrin nasal spray or the generic, 12 hour relief, 2 sprays to each nostril twice daily for 3 days only and then stop. Do not use more than 3 days. Follow-up with your Dr. in a few days for recheck. Drink plenty of fluids and get plenty of rest. Return for worse pain, fever, vomiting, weakness, breathing problems or other concerns as needed. Scripts Ondansetron (Ondansetron Odt) 4 Mg Tab.rapdis 4 MG PO Q6H PRN for NAUSEA/VOMITING, #12 TAB 0 Refills Prov: NICKY HASSAN MD 04/07/22 NICKY HASSAN MD Apr 07, 2022 11:09
[2022-04-07] MEDS ORDERED: ONDA4TAB11 PO (11:22)
[2022-04-07] MEDS ORDERED: ACETAMINOPHEN 500 MG TAB (TYLENOL) PO STA (11:57)
[2022-04-07] MEDS ORDERED: ACETAMINOPHEN 500 MG TAB (TYLENOL) ONE (12:00)
[2022-04-07 12:05] VITALS: BP 157/104
== END 2022-04-07 12:07 | disposition home or self-care (01) ==
LOC: EDUNIT# 09:14 → ER 09:16
DX: J10.1 Influenza due to other identified influenza virus with other respiratory manifestations (principal); G47.30 Sleep apnea, unspecified; F17.210 Nicotine dependence, cigarettes, uncomplicated; Z99.89 Dependence on other enabling machines and devices; Z20.822 Contact with and (suspected) exposure to COVID-19
CPT/HCPCS: 87636; 99283

== ENCOUNTER 2022-05-13 05:52 | Outpatient (CLI) | payer OTHER, MEDICAID ==
[~2022-05-13] VITALS: Ht 152.4 cm; Wt 76.0 kg
[~2022-05-13 05:52] MED LIST changes: -FLUT16SP22 NS; +FLUT16SP22 NSEACH; +ONDA4TAB11 PO
[2022-05-13] MEDS ORDERED: CARB1TAB32 PO (16:17)
[2022-05-13] MEDS ORDERED: VORT10TA PO (16:17)
[2022-05-13] MEDS ORDERED: ESTR1TAB24 PO (16:17)
[2022-05-13] MEDS ORDERED: LEVO125T6 PO (16:17)
[2022-05-13] MEDS ORDERED: LORA10TA7 PO (16:21)
== END 2022-05-13 16:26 | disposition home or self-care (01) ==
LOC: PREOP 05:52
PROVIDERS: ATTEND Surgery
DX: Z01.818 Encounter for other preprocedural examination (principal)

== ENCOUNTER → 2022-05-18 | Outpatient (CLI) | payer OTHER, MEDICAID ==
[~2022-05-18] MED LIST changes: +CARB1TAB32 PO; +ESTR1TAB24 PO; +LEVO125T6 PO; +LORA10TA7 PO; +VORT10TA PO
--- NOTE | 2022-05-18 12:20 | Diagnostic Imaging Report ---
INDICATION: Dysphagia. TECHNIQUE: This study was performed in conjunction with Speech Pathology. Video fluoroscopy was performed during the swallowing of barium in multiple consistencies. A total of 45 seconds of fluoroscopy time was utilized. FINDINGS: The patient ingested thin barium as well as applesauce and banana consistencies. No laryngeal penetration or aspiration was observed. There was normal epiglottic tilt and laryngeal elevation. There was a moderate amount of residue in the valleculae and pyriform sinuses with all consistencies; however, repeat swallow did clear the residue. IMPRESSION: Mild to moderate vallecular and pyriform sinus residue which would clear after a double swallow. No penetration or aspiration was observed. Dictated by: Dictated on workstation # [id number]
== END ==
LOC: RAD 09:55
PROVIDERS: ATTEND Family Medicine
DX: K21.9 Gastro-esophageal reflux disease without esophagitis (principal)
CPT/HCPCS: 74230

== ENCOUNTER 2022-06-01 10:14 | Outpatient (RCR) | payer MEDICARE, MEDICAID | END 2022-06-01 17:00 | disposition home or self-care (01) | PROVIDERS: ATTEND Family Medicine | DX: R13.10 Dysphagia, unspecified (principal) ==

== ENCOUNTER 2022-06-09 07:19 | Day surgery (SDC) | payer MEDICARE, MEDICAID ==
[~2022-06-09] VITALS: Ht 152.4 cm; Wt 76.0 kg
[2022-06-09] MEDS ORDERED: LACTATED RINGERS 1,000 ML IV STA (07:27)
[2022-06-09] MEDS ORDERED: HURRICAINE EXT TUBE (BENZOCAINE) XX PRN (07:30)
[2022-06-09 07:55] VITALS: BP 144/73
--- NOTE | 2022-06-09 08:13 | Progress Note-Pre Operative ---
Pre-Operative Progress Note Date of Available H&P: May 11, 2022 Date H&P Reviewed: Jun 09, 2022 Time H&P Reviewed: 08:13 History & Physical: H&P Reviewed, Patient Examed, No changes noted Pre-Operative Diagnosis: n/v dysphagia HERACLIO CHAVARRIA DO Jun 09, 2022 08:13
[2022-06-09] MEDS ORDERED: proPOfol 200 MG/20 ML (DIPRIVAN) VIAL IV ONE (09:09)
[2022-06-09] MEDS ORDERED: MIDAZOLAM 2 MG/2 ML (VERSED) VIAL ONE (09:13)
[2022-06-09 09:35] VITALS: BP 145/70
[2022-06-09] MEDS ORDERED: SUCR1TAB36 PO (09:35)
--- NOTE | 2022-06-09 09:38 | Discharge Inst-Simple/Standard ---
Discharge Inst-Standard Discharge Medications New, Converted or Re-Newed RX: Transmitted to Pharmacy Patient Instructions/Follow Up Plan of Care/Instructions/FU: f/u 2 weeks Jurgen Activity as Tolerated: Yes Discharge Diet: No Restrictions HERACLIO CHAVARRIA DO Jun 09, 2022 09:38
[2022-06-09 09:39] VITALS: BP 139/74
--- NOTE | 2022-06-09 09:39 | Anesthesia-General Post-Op ---
MAC Patient Condition Mental Status/LOC: Same as Preop Cardiovascular: Satisfactory Nausea/Vomiting: Absent Respiratory: Satisfactory Pain: Controlled Complications: Absent Post Op Complications Complications None Follow Up Care/Instructions Patient Instructions None needed. Anesthesiology Discharge Order Discharge Order Patient is doing well, no complaints, stable vital signs, no apparent adverse anesthesia problems. No complications reported per nursing. JANIE VIDAL CRNA Jun 09, 2022 09:39
[2022-06-09 09:40] VITALS: BP 154/76
--- NOTE | 2022-06-09 09:40 | Progress Note-Post Operative ---
Post-Operative Progess Note Surgeon (s)/Museum Director (s) Surgeon HERACLIO CHAVARRIA DO Museum Director: N/A Pre-Operative Diagnosis n/v dysphagia Post-Operative Diagnosis Gastritis Hiatal Hernia w/ Previous Repair Distal Esophageal Diverticulum Procedure & Operative Findings Date of Procedure 06/09/22 Procedure Performed/Findings EGD Bx Anesthesia Type per PLAYGROUND SUPERVISOR Estimated Blood Loss Estimated blood loss (mL): None Specimens/Packing Specimens Removed Antrum, Body, and GEJ bx HERACLIO CHAVARRIA DO Jun 09, 2022 09:40
[2022-06-09 09:56] VITALS: BP 154/76
--- NOTE | 2022-06-09 13:16 | OPERATIVE REPORT ---
DATE OF SERVICE: 06/09/2022 PREOPERATIVE DIAGNOSES: Dysphagia, nausea, vomiting. POSTOPERATIVE DIAGNOSES: Hiatal hernia, evidence of previous repair gastritis. SURGEON: Dr. Seaman. ANESTHESIA: Per CMV DRIVER. PROCEDURE: EGD with biopsies. INDICATIONS: The patient is a 61-year-old female who has been having dysphagia symptoms, nausea and vomiting. She understands risks and benefits of procedure and wishes to proceed. Consent was signed in chart. DESCRIPTION OF PROCEDURE: The patient was taken to endoscopy suite, placed in left lateral recumbent position. Timeout was performed. Scope was inserted in the mouth, down the esophagus, stomach and duodenum without difficulty. No polyps, masses or ulcerations in the duodenum. Scope was then slowly retracted back in the stomach where it was further insufflated. Gastritis appearance diffusely. Biopsy the antrum and body were obtained. Scope was retroflexed noting t-type fixation device up near the hiatus, but with some coughing evidence of still hiatal hernia present. No other pathology noted. Scope was returned to its normal position, slowly withdrawn until distal esophagus. Biopsy of GE junction was obtained. Scope was slowly retracted back, also noting a distal esophageal small diverticulum. Scope was then slowly retracted back until completely removed noting no other pathology. The patient tolerated the procedure well without any complications, taken to recovery in stable condition. RECOMMENDATIONS: The patient to continue on current medications, would add Carafate 1 gram four times a day. Await biopsy results. Further recommendations pending biopsy results. CC: Dr. Soila Lawrence ? requested, unable to deliver Job ID: [id number] DocumentID: [id number] Dictated Date: 06/09/2022 09:38:06 Coordinator Integrated Marketing Date: 06/09/2022 13:14:00 Dictated By: HERACLIO SEAMAN DO [facility]Jay
== END 2022-06-09 10:06 | disposition home or self-care (01) ==
LOC: ENDO 07:19
PROVIDERS: ATTEND Surgery
DX: K29.50 Unspecified chronic gastritis without bleeding (principal); B96.81 Helicobacter pylori [H. pylori] as the cause of diseases classified elsewhere; K44.9 Diaphragmatic hernia without obstruction or gangrene; Q39.6 Congenital diverticulum of esophagus; G47.33 Obstructive sleep apnea (adult) (pediatric); F17.210 Nicotine dependence, cigarettes, uncomplicated; E66.9 Obesity, unspecified; Z68.32 Body mass index [BMI] 32.0-32.9, adult
CPT/HCPCS: 82947

== ENCOUNTER → 2022-09-03 | Outpatient (CLI) | payer MEDICARE, MEDICAID ==
[~2022-09-03] MED LIST changes: +SUCR1TAB36 PO
--- NOTE | 2022-09-03 16:06 | Diagnostic Imaging Report ---
Indication: Right knee pain. Time of Exam: 9:46 AM 4 views of right knee were obtained. Alignment appears normal. Joint spaces are well maintained. Articular surfaces are smooth. No fracture, dislocation or effusion is identified. IMPRESSION: No acute bony abnormality is detected. Dictated by: Dictated on workstation # [id number]
== END ==
LOC: ORTHO 09:26
PROVIDERS: ATTEND Orthopaedic Surgery
DX: M25.561 Pain in right knee (principal)
CPT/HCPCS: 20610; 73564; 99203

== ENCOUNTER → 2023-02-11 | Outpatient (CLI) | payer MEDICARE, MEDICAID | LOC: ORTHO 09:34 | PROVIDERS: ATTEND Orthopaedic Surgery | DX: M17.11 Unilateral primary osteoarthritis, right knee (principal); I10 Essential (primary) hypertension; E11.9 Type 2 diabetes mellitus without complications; E03.9 Hypothyroidism, unspecified; E78.2 Mixed hyperlipidemia; E66.01 Morbid (severe) obesity due to excess calories; Z87.891 Personal history of nicotine dependence | CPT/HCPCS: 20610; 99213 ==